=== PATIENT | female | born 1985 | race Caucasian/White ===

== ENCOUNTER 2024-03-25 16:20 | Emergency (ER) | payer MEDICAID, SELFPAY ==
[2024-03-25 16:27] VITALS: BP 102/66; PULSE 128; RESP 20; TEMP 36.7; O2SAT 97; BMI 31.5
[2024-03-25 17:25] LABS: Appearance Urine Clear (Clear); Bilirubin Urine Negative (Negative); Blood Urine Trace-intact (Negative); Color Urine Yellow (Yellow); Glucose Urine Negative (Negative); Ketones Urine Negative (Negative); Leukocyte Esterase Urine Negative (Negative); Nitrite Urine Negative (Negative); Protein Urine Negative (Negative); Urobilinogen Urine 0.2 (0.2-1.0); pH Urine 7.5 (5.0-8.5)
[2024-03-25 17:32] LABS: RBC Urine 0-2 (0-2); WBC Urine 0-2 (0-5)
[2024-03-25 17:52] LABS: PCR FLU A Negative PCR FLU A (Negative); PCR FLU B Negative PCR FLU B (Negative); PCR RSV Negative PCR RSV (Negative); SARS PCR* Negative SARS-CoV-2 (Negative)
[2024-03-25 17:58] LABS: Basophils Absolute Auto 0.02 K/uL (0.00-0.30); Basophils Percent Auto 0.3 % (0.0-3.0); Eosinophils Absolute Auto 0.01 K/uL (0.00-0.50); Eosinophils Percent Auto 0.1 % (0.0-7.0); Hematocrit 31.5 % (33.0-51.0); Hemoglobin* 10.3 gm/dL (12.0-16.0); Immature Granulocytes Abs Auto 0.01 K/uL (0.00-0.30); Immature Granulocytes Pct Auto 0.1 %; Lymphocytes Absolute Auto 1.71 K/uL (0.90-2.90); Lymphocytes Percent Auto 24.7 % (20-44); Mean Corpuscular HGB Conc 33 gm/dL (32-36); Mean Corpuscular Hemoglobin 29 pg (26-34); Mean Corpuscular Volume 88 fL (80-100); Monocytes Percent Auto 8.2 % (0.0-11.0); Neutrophils Absolute Auto 4.59 K/uL (1.7-7.0); Neutrophils Percent Auto 66.6 % (42.0-72.0); Platelet Count* 373 K/uL (140-440); RDW Coefficient of Variation % 15.7 % (11.5-15.5); Red Blood Count 3.59 m/uL (4.00-5.20); White Blood Count* 6.91 K/uL (4.50-11.00)
--- NOTE | 2024-03-25 17:58 | ED_ITS ---
HPI - General Adult General Date Seen: 03/25/24 Chief complaint: Back Injury/Pain Stated complaint: Lower back pain up the spine; weakness Time Seen by Provider: 03/25/24 16:36 Source: patient Mode of arrival: ambulatory Limitations: no limitations History of Present Illness HPI narrative: Patient is a 38-year-old female presenting to the emergency department for neck and back pain. She states she had osteomyelitis a few weeks ago and has been on IV antibiotics since then. This was diagnosed at [facility]. She has been getting ertapenem every day. Did get her dose today. She does get frequent bacteremia and she states the think her osteomyelitis was caused by bacteremia from a ESBL UTI. States 2 days ago she started having neck and back pain. The back pain is in the lower lumbar region at the same spot of her previous osteomyelitis. She also developed new neck pain at about C3. He states is not tender to palpation. She went to [facility] Emergency Department yesterday for this and was discharged. Also patient does states she has intermittent incontinence been going on for the past couple days. Also had a fever yesterday. She was seen at [facility] ED yesterday for these exact same symptoms. At that time she was trying to get more Dilaudid because the taper she currently is on has not been enough. She did have the bone biopsy done 03/15 showing no organisms on culture. Her CRP was down trending in her ESR is consistent. They spoke with ID who states that was highly unlikely the patient had developed new osteo myelitis and that was reasonable to defer imaging at this time. I also saw and her charts that she has a care plan through [facility] as she needs a sitter went ever she is in their ED. she has multiple episodes that make them believe she may have Munchausen disease. She does a history of mental health issues. While there she would see got Ativan and Benaddamian for the high end with Dean scan to make look like she is having allergic reaction. They also believe she was falling on purpose. Also every time they discharge or she will have a new complaint to delay the discharge. This is according to her patient care coordination note Related Data Home Medications Medication Instructions Recorded Confirmed apixaban 5 mg tablet (Eliquis) 5 mg PO BID 03/25/24 03/25/24 cholecalciferol (vitamin D3) 50 50 mcg PO DAILY 03/25/24 03/25/24 mcg (2,000 unit) capsule gabapentin 800 mg tablet 800 mg PO 3XD 03/25/24 03/25/24 hydromorphone 2 mg tablet mg PO 03/25/24 hydromorphone 4 mg tablet 4 mg PO Q6H PRN severe pain 03/25/24 03/25/24 lorazepam 1 mg tablet 1 mg PO Q6H 03/25/24 03/25/24 zolpidem 10 mg tablet 10 mg PO DAILY 03/25/24 03/25/24 Allergies Allergy/AdvReac Type Severity Reaction Status Date / Time droperidol Allergy Verified 03/25/24 16:32 metoclopramide [From Reglan] Allergy Verified 03/25/24 16:32 NSAIDS (Non-Steroidal Allergy Verified 03/25/24 16:32 Anti-Inflamma prochlorperazine Allergy Verified 03/25/24 16:32 [From Compazine] Sulfa (Sulfonamide Allergy Verified 03/25/24 16:32 Antibiotics) PFSH [facility] Medical History (Updated 03/25/24 @ 19:18 by Flo Akers DO) Bipolar 1 disorder ?F31.9 - Bipolar disorder, unspecified (ICD-10) Seizure ?R56.9 - Unspecified convulsions (ICD-10) Sepsis ?A41.9 - Sepsis, unspecified organism (ICD-10) Atrial flutter ?I48.92 - Unspecified atrial flutter (ICD-10) CAP (community acquired pneumonia) ?J18.9 - Pneumonia, unspecified organism (ICD-10) Streptococcus viridans infection ?A49.1 - Streptococcal infection, unspecified site (ICD-10) Ulcer of right foot ?L97.519 - Non-pressure chronic ulcer of other part of right foot with unspecified severity (ICD-10) Dysthymic disorder ?F34.1 - Dysthymic disorder (ICD-10) Eating disorder ?F50.9 - Eating disorder, unspecified (ICD-10) Dysplasia of cervix ?N87.9 - Dysplasia of cervix uteri, unspecified (ICD-10) Post traumatic stress disorder (PTSD) ?F43.10 - Post-traumatic stress disorder, unspecified (ICD-10) Major depressive disorder with single episode ?F32.9 - Major depressive disorder, single episode, unspecified (ICD-10) Insomnia ?G47.00 - Insomnia, unspecified (ICD-10) Borderline personality disorder ?F60.3 - Borderline personality disorder (ICD-10) Allergic rhinitis ?J30.9 - Allergic rhinitis, unspecified (ICD-10) Abdominal pain ?R10.9 - Unspecified abdominal pain (ICD-10) Ureteral stone ?N20.1 - Calculus of ureter (ICD-10) contractions ?O47.00 - False labor before 37 completed weeks of gestation, unspecified trimester (ICD-10) Drug-seeking behavior ?Z76.5 - Malingerer [conscious simulation] (ICD-10) GERD (gastroesophageal reflux disease) ?K21.9 - Gastro-esophageal reflux disease without esophagitis (ICD-10) LFT elevation ?R79.89 - Other specified abnormal findings of blood chemistry (ICD-10) Gastric ulcer with hemorrhage ?K25.4 - Chronic or unspecified gastric ulcer with hemorrhage (ICD-10) GI bleed ?K92.2 - Gastrointestinal hemorrhage, unspecified (ICD-10) Headache ?R51.9 - Headache, unspecified (ICD-10) Hematemesis ?K92.0 - Hematemesis (ICD-10) Kathleen-Mustafa tear ?K22.6 - Gastro-esophageal laceration-hemorrhage syndrome (ICD-10) Intertrigo ?L30.4 - Erythema intertrigo (ICD-10) PID (acute pelvic inflammatory disease) ?N73.0 - Acute parametritis and pelvic cellulitis (ICD-10) Chronic narcotic use ?F11.90 - Opioid use, unspecified, uncomplicated (ICD-10) Left lumbar radiculopathy ?M54.16 - Radiculopathy, lumbar region (ICD-10) Positive D dimer ?R79.89 - Other specified abnormal findings of blood chemistry (ICD-10) Asthma ?J45.909 - Unspecified asthma, uncomplicated (ICD-10) Psychogenic nonepileptic seizure ?F44.5 - Conversion disorder with seizures or convulsions (ICD-10) Pleuritic chest pain ?R07.81 - Pleurodynia (ICD-10) Suspected COVID-19 virus infection ?Z20.822 - Contact with and (suspected) exposure to COVID-19 (ICD-10) SOB (shortness of breath) ?R06.02 - Shortness of breath (ICD-10) Morbid obesity ?E66.01 - Morbid (severe) obesity due to excess calories (ICD-10) Anxiety ?F41.9 - Anxiety disorder, unspecified (ICD-10) Candidiasis of mouth ?B37.0 - Candidal stomatitis (ICD-10) Positive blood cultures ?R78.81 - Bacteremia (ICD-10) Intractable nausea and vomiting ?R11.2 - Nausea with vomiting, unspecified (ICD-10) Epigastric pain ?R10.13 - Epigastric pain (ICD-10) Wheezing ?R06.2 - Wheezing (ICD-10) Postural orthostatic tachycardia syndrome [POTS] ?G90.A - Postural orthostatic tachycardia syndrome [POTS] (ICD-10) Postural dizziness with near syncope ?R42 - Dizziness and giddiness (ICD-10) ?R55 - Syncope and collapse (ICD-10) Problem with vascular access ?Z78.9 - Other specified health status (ICD-10) CANELO (acute kidney injury) ?N17.9 - Acute kidney failure, unspecified (ICD-10) Dehydration ?E86.0 - Dehydration (ICD-10) Mixed personality disorder ?F60.89 - Other specific personality disorders (ICD-10) Transaminitis ?R74.01 - Elevation of levels of liver transaminase levels (ICD-10) Pulmonary nodule ?R91.1 - Solitary pulmonary nodule (ICD-10) Bacteremia ?R78.81 - Bacteremia (ICD-10) Low folate ?E53.8 - Deficiency of other specified B group vitamins (ICD-10) Psychiatric disturbance ?F99 - Mental disorder, not otherwise specified (ICD-10) Port-A-Cath in place ?Z95.828 - Presence of other vascular implants and grafts (ICD-10) Dysuria ?R30.0 - Dysuria (ICD-10) Fungemia ?B49 - Unspecified mycosis (ICD-10) UTI (urinary tract infection) ?N39.0 - Urinary tract infection, site not specified (ICD-10) Syncope ?R55 - Syncope and collapse (ICD-10) Anemia ?D64.9 - Anemia, unspecified (ICD-10) DVT (deep venous thrombosis) ?I82.409 - Acute embolism and thrombosis of unspecified deep veins of unspecified lower extremity (ICD-10) Back pain ?M54.9 - Dorsalgia, unspecified (ICD-10) Hypokalemia ?E87.6 - Hypokalemia (ICD-10) Social History Smoking Status: Smoker, status unknown Exam Narrative: Exam Narrative: Const: Smells of urine, in mild distress, Eyes: PERRL, no conjunctival injection, and symmetrical lids HENT: Atraumatic external nose and ears. Moist mucous membranes. Neck: Symmetric, trachea midline, No thyromegaly. CVS: Tachycardic, No murmurs or gallops. Peripheral pulses 2+ and equal in all extremities RESP: Unlabored respiratory effort. Clear to auscultation bilaterally. GI: Nontender/Nondistended, No rebound or guarding. MSK:Extremities w/o deformity, Normal Active ROM Skin: Warm, Dry. No rashes or lesions. Neuro: Normal Muscle tone, No focal neurological deficits. Psych: Awake, Alert, & Oriented x3. Appropriate mood and affect. Const: Vital Signs, click to edit/add: Vital Signs - 24 hr 03/25/24 16:27 03/25/24 18:10 03/25/24 18:30 Temperature 98.0 F Pulse Rate [Right Pulse Oximeter] 128 H 114 H 111 H Respiratory Rate 20 16 16 Blood Pressure [Ri ght Upper Arm] 102/66 120/72 117/62 Pulse Oximetry 97 98 98 Oxygen Delivery Me thod Room Air Room Air Room Air Course Vital Signs Vital signs: Initial Vital Signs Temperature 98.0 F 03/25/24 16:27 Temperature Source Temporal Artery Scan 03/25/24 16:27 Pulse Rate 128 H 03/25/24 16:27 Respiratory Rate 20 03/25/24 16:27 Blood Pressure 102/66 03/25/24 16:27 Blood Pressure Mean 78 03/25/24 16:27 Blood Pressure Position Sitting 03/25/24 16:27 Pulse Oximetry 97 03/25/24 16:27 Oxygen Delivery Method Room Air 03/25/24 16:27 Vital Signs Temperature 98.0 F 03/25/24 16:27 Pulse Rate 128 H 03/25/24 16:27 Respiratory Rate 20 03/25/24 16:27 Blood Pressure 102/66 03/25/24 16:27 Pulse Oximetry 97 03/25/24 16:27 Oxygen Delivery Method Room Air 03/25/24 16:27 Temperature 98.0 F 03/25/24 16:27 Pulse Rate 111 H 03/25/24 18:30 Respiratory Rate 16 03/25/24 18:30 Blood Pressure 117/62 03/25/24 18:30 Pulse Oximetry 98 03/25/24 18:30 Oxygen Delivery Method Room Air 03/25/24 18:30 Medications Administered Medications: Generic Name Dose Route Start Last Admin Trade Name Mindy PRN Reason Stop Dose Admin Hydromorphone HCl 2 mg 03/25/24 16:55 03/25/24 18:03 Hydromorphone 2 Mg Tablet PO 03/25/24 16:56 2 mg ONCE ONE Administration Lactated Ringer's 1,000 mls @ 1,000 mls/hr 03/25/24 16:55 03/25/24 19:18 Lactated Ringers 1000 Ml IV 03/25/24 17:54 Infused .Q1H ONE Infusion Medical Decision Making MDM Narrative Medical decision making narrative: Patient is a 38-year-old female presenting for neck and back pain. Based on her history there is concerned for Munchausen syndrome. I will give her a dose Dilaudid as she was able to get a dose at [facility] yesterday who know her very well. We will hold off any imaging at this time until I can determine if she really does needed or not. CBC, CMP, urinalysis, COVID/flu/RSV, troponin, EKG, ESR, CRP all ordered. At this time mother was possibility of osteomyelitis I did review her notes on Care everywhere from [facility] and they state it was a questionable call for osteomyelitis to start with. CBC, CMP, urinalysis, COVID/flu/RSV showed no concerning abnormalities. She does have slightly elevated liver enzymes. These actually down compared to her admission at [facility] in February. EKG shows sinus tachycardia and troponin is normal. Her lab work returned with a CRP of 4.7 and an ESR of 75. Based on her reports from yesterday at [facility] her CRP was 33.81 and ESR was 45. While the ESR to go up some the CRP decreased significantly. Based on the notes they only recommended MRI if the ESR and CRP are both up in even then do not think she had osteomyelitis currently considering she is on antibiotics IV. She has no point tenderness and no overlying erythema. Seems very unlikely to be osteomyelitis at this time. She continues to be tachycardic but is very anxious and looking through her previous charts she is calmly tachycardic. I cannot definitively say if this tachycardia is from some underlying infection that we are not picking up or not but at this time patient states her back pain is feeling much better. She still has some neck pain but would like to be discharged. Did request another dose of Dilaudid which was given. Considering we do not have MRI right now and CT scan is not very sensitive for osteomyelitis I do not think imaging would help at this time. I also think it is very unlikely she does have osteomyelitis. She did not have a fever here and with her history it is really hard to determine what symptoms she is actually having verses what she is claiming to have. Patient will be discharged. Lab Data Labs: Lab Results 03/25/24 03/25/24 03/25/24 Range/Units 16:55 17:14 17:18 WBC (4.50-11.00) K/uL RBC (4.00-5.20) m/uL Hgb (12.0-16.0) gm/dL Hct (33.0-51.0) % MCV (80-100) fL MCH (26-34) pg MCHC (32-36) gm/dL RDW Coeff of Haily (11.5-15.5) % Plt Count (140-440) K/uL Neut % (Auto) (42.0-72.0) % Lymph % (Auto) (20-44) % [place] % (Auto) (0.0-11.0) % Eos % (Auto) (0.0-7.0) % Baso % (Auto) (0.0-3.0) % Neut # (Auto) (1.7-7.0) K/uL Lymph # (Auto) (0.90-2.90) K/uL [place] # (Auto) (0.00-0.90) K/UL Eos # (Auto) (0.00-0.50) K/uL Baso # (Auto) (0.00-0.30) K/uL Abs Immat Gran (auto) (0.00-0.30) K/uL Imm/Tot Granulo (auto) % ESR (2-20) mm/hr Sodium (135-149) mmol/L Potassium (3.6-5.1) mmol/L Chloride (96-114) mmol/L Carbon Dioxide (20-32) mmol/L Anion Gap (7-15) mEq/L BUN (5-24) mg/dL Creatinine (0.5-1.5) mg/dL Estimated Creat Clear Estimated GFR ml/min Glucose (60-115) mg/dL Lactate (0.5-1.9) mmol/L Calcium (8.4-10.6) mg/dL Total Bilirubin (0.1-1.5) mg/dL AST (12-35) U/L ALT (4-35) U/L Alkaline Phosphatase (40-150) U/L C-Reactive Protein (0.5-1.0) mg/dL Total Protein (6.0-8.3) g/dL Albumin (3.3-5.0) g/dL Urine Color Yellow (Yellow) Urine Appearance Clear (Clear) Urine pH 7.5 (5.0-8.5) Ur Specific [place] 1.020 (1.000-1.030) Urine Protein Negative (Negative) Urine Glucose (UA) Negative (Negative) Urine Ketones Negative (Negative) Urine Blood Trace-intact A (Negative) Urine Nitrite Negative (Negative) Urine Bilirubin Negative (Negative) Urine Urobilinogen 0.2 (0.2-1.0) Ur Leukocyte Esterase Negative (Negative) Urine RBC 0-2 (0-2) Urine WBC 0-2 (0-5) Ur Squamous Epith Cells None (None-Few) Urine Bacteria None (None) SARS-CoV-2 (PCR) Negative SARS-CoV-2 (Negative) Influenza Type A (PCR) Negative PCR FLU A (Negative) Influenza Type B (PCR) Negative PCR FLU B (Negative) RSV (PCR) Negative PCR RSV (Negative) POC Troponin I 0.01 (0.01-0.04) ng/ml 03/25/24 Range/Units 17:47 WBC 6.91 (4.50-11.00) K/uL RBC 3.59 L (4.00-5.20) m/uL Hgb 10.3 L (12.0-16.0) gm/dL Hct 31.5 L (33.0-51.0) % MCV 88 (80-100) fL MCH 29 (26-34) pg MCHC 33 (32-36) gm/dL RDW Coeff of Haily 15.7 H (11.5-15.5) % Plt Count 373 (140-440) K/uL Neut % (Auto) 66.6 (42.0-72.0) % Lymph % (Auto) 24.7 (20-44) % [place] % (Auto) 8.2 (0.0-11.0) % Eos % (Auto) 0.1 (0.0-7.0) % Baso % (Auto) 0.3 (0.0-3.0) % Neut # (Auto) 4.59 (1.7-7.0) K/uL Lymph # (Auto) 1.71 (0.90-2.90) K/uL [place] # (Auto) 0.60 (0.00-0.90) K/UL Eos # (Auto) 0.01 (0.00-0.50) K/uL Baso # (Auto) 0.02 (0.00-0.30) K/uL Abs Immat Gran (auto) 0.01 (0.00-0.30) K/uL Imm/Tot Granulo (auto) 0.1 % ESR 75 H (2-20) mm/hr Sodium 138 (135-149) mmol/L Potassium 3.7 (3.6-5.1) mmol/L Chloride 107 (96-114) mmol/L Carbon Dioxide 23 (20-32) mmol/L Anion Gap 8 (7-15) mEq/L BUN 8 (5-24) mg/dL Creatinine 0.6 (0.5-1.5) mg/dL Estimated Creat Clear 119.01 Estimated GFR 118 ml/min Glucose 100 (60-115) mg/dL Lactate 0.8 (0.5-1.9) mmol/L Calcium 9.0 (8.4-10.6) mg/dL Total Bilirubin 0.4 (0.1-1.5) mg/dL AST 51 H (12-35) U/L ALT 45 H (4-35) U/L Alkaline Phosphatase 243 H (40-150) U/L C-Reactive Protein 4.7 H (0.5-1.0) mg/dL Total Protein 8.4 H (6.0-8.3) g/dL Albumin 4.2 (3.3-5.0) g/dL Urine Color (Yellow) Urine Appearance (Clear) Urine pH (5.0-8.5) Ur Specific [place] (1.000-1.030) Urine Protein (Negative) Urine Glucose (UA) (Negative) Urine Ketones (Negative) Urine Blood (Negative) Urine Nitrite (Negative) Urine Bilirubin (Negative) Urine Urobilinogen (0.2-1.0) Ur Leukocyte Esterase (Negative) Urine RBC (0-2) Urine WBC (0-5) Ur Squamous Epith Cells (None-Few) Urine Bacteria (None) SARS-CoV-2 (PCR) (Negative) Influenza Type A (PCR) (Negative) Influenza Type B (PCR) (Negative) RSV (PCR) (Negative) POC Troponin I (0.01-0.04) ng/ml ECG Data Attestation: I personally reviewed and interpreted this ECG as follows: Prior ECG tracings: not available for review Interpretation: Sinus tachycardia with a rate of 116 beats per minute, normal intervals, normal axis, no ST or T-wave abnormalities Discharge Plan Discharge Clinical Impression: Acute neck pain Patient Disposition: Home, Self-Care Condition: Improved Instructions: Acute Neck Pain (ED) Additional Instructions: Continue take care prescribed pain medication. Return to emergency department for new or worsening symptoms Prescriptions: No Action hydromorphone 2 mg tablet PO gabapentin 800 mg tablet 800 mg PO 3XD lorazepam 1 mg tablet 1 mg PO Q6H zolpidem 10 mg tablet 10 mg PO DAILY hydromorphone 4 mg tablet 4 mg PO Q6H PRN (Reason: severe pain) cholecalciferol (vitamin D3) 50 mcg (2,000 unit) capsule 50 mcg PO DAILY Eliquis 5 mg tablet 5 mg PO BID Follow Up/Referrals: Alee Dooley PA-C [Physician [employer]] - Stand Alone Forms: Connotate Info Instructions
[2024-03-25] MEDS: LACTATED RINGERS 1000 ML 1,000 ML IV (18:01)
[2024-03-25 18:03] LABS: Lactate Sepsis w/Reflex* 0.8 mmol/L (0.5-1.9)
[2024-03-25] MEDS: HYDROmorphone 2 MG TABLET PO ×2 (18:03→19:22)
[2024-03-25 18:04] LABS: Slide Review Reflex No
[2024-03-25 18:10] VITALS: BP 120/72; PULSE 114; RESP 16; O2SAT 98
--- OUTSIDE RECORDS SUMMARY | 2024-03-25 18:10 | XMS_ITS | Referral Summary ---
Author Name Unknown Organization [facility] Address [address] [place] [address] Care Team Providers Care Contamination Consultant Name Role Phone Unavailable Primary Care Provider Unavailabl e Source Comments Patient records contain information from all sites at [facility]. For routine questions regarding patient records, call [phone] during business hours, M-F 8:00 AM - 5:00 PM Central Time. Record requests for emergency care only can be directed to [phone] at any time.[facility] Allergies Active Allergy Reactions Criticality Noted Date Comments Codeine Itching 08/14/2013 Metrizamide Other (see comments),Hives (Reselect Reaction),Itching 12/11/2014 reaction after injection of IV contrast for CT chest 03/2014 at [facility]. Premedicated w/ Benadryl prior to CT at [facility] 12/11/14 - still had itching after injection of IV contrast (Isovue 370). Naproxen Anaphylaxis 08/04/2012 PN: anaphylaxis Nsaids (Non-Steroidal Anti-Inflammatory Drug) Anaphylaxis 06/11/2008 Ondansetron Rash Low 11/21/2017 Patient reports only gets a rash with IV zofran Prochlorperazine Other (see comments) 06/14/2011 Sulfa (Sulfonamide Antibiotics) Anaphylaxis 06/11/2008 Medications Medication Sig Dispensed Refills Start Date End Date Status acetaminophen (for_TYLENOL) 325 mg tablet Take 650 mg by mouth. 12/01/2016 Active acetaminophen (for_TYLENOL) 500 mg tablet Take 1,000 mg by mouth. 07/20/2017 Active nitrofurantoin monohydrate (for_MACROBID) 100 mg capsule 11/30/2017 Active zolpidem (AMBIEN) 10 mg tablet TAKE 1 TABLET BY MOUTH AT BEDTIME 30 tablet 09/05/2022 Active Active Problems No known active problems Social History Tobacco Use Types Packs/Day Years Used Date Smoking Tobacco: Never Alcohol Use Standard Drinks/Week Comments Yes 0 (1 standard drink = 0.6 oz pur e alcohol) socially Nutrition Answer Date Recorded Nutrition: EVOO Fat Source Unknown 01/28 Nutrition: Servings of Fruits/Vegetables per Day Not on file 01/28/2021 Dental Answer Date Recorded Dental: Regular Dentist Unknown 01/29/20 21 Sex and Gender Information Value Date Recorded Sex Assigned at Not on file Gender Identity Not on file Sexual Orientation Not on file Last Filed Vital Signs Vital Sign Reading Time Taken Comments Blood Pressure 156/97 05/25/2022 8:30 PM CDT Pulse 98 05/26/2022 2:00 AM CDT Temperature 36.8 ??C (98.2 ??F) 05/25/2022 5:01 PM CD T Respiratory Rate 20 05/25/2022 5:01 PM CDT Oxygen Saturation 96% 05/26/2022 2:00 AM CDT Inhaled Oxygen Concentration - - Weight 126 kg (276 lb 10.8 oz) 12/05/2017 9:18 P M [employer] Height 157.5 cm (5' 2) 12/05/2017 9:18 PM [employer] Body Mass Index 50.6 12/05/2017 9:18 PM [employer] Plan of Treatment Not on file Procedures Procedure Name Priority Date/Time Associated Diagnosis Comments EXTI LIPID PANEL REFLEX TO DIRECT LDL Routine 01/01/2023 11:43 AM [employer] HIV-1/-2 AG AND AB SCREEN Routine 12/23/2017 9:49 AM [employer]ACHINE TENDER from Last 3 Months or Most Recently Relevant to Health Maintenance Results * HIV-1/-2 Ag and Ab Screen (12/23/2017 9:49 AM GLASSINE MACHINE TENDER) [facility] HIV-1/-2 Ag and Ab Screen, S Negative Negative [facility] Comment: Negative result does not rule out HIV infection. If ? acute HIV infection is suspected in a high-risk ? individual, submit plasma specimen for HIV-1 RNA ? quantification test (HIVDQ) and/or HIV-2 DNA/RNA ? test (FHV2Q). ? 12/23/2017 9:49 AM [employer] MACHINE [employer]ENDER 12/23/2017 9:49 AM [employer] MACHINE T[employer]ER Jacquelyn L Keuseman M.D. LAB MICROBIOLOGY - BLOOD ORDERABLES [facility] [address] [place] [id number], [facility] from Last 3 Months or Most Recently Relevant to Health Maintenance
--- OUTSIDE RECORDS SUMMARY | 2024-03-25 18:10 | XMS_ITS ---
Author Name Unknown Organization [facility] Address [address] [place] [address] Care Team Providers Care Care Rep Name Role Phone Unavailable Unavailable Unavailable Surgery Details Not on file Complications Check Surgery Details section. Procedure Estimated Blood Loss Check Surgery Details section. Procedure Findings Check Surgery Details section. Procedure Specimens Taken Check Surgery Details section.
--- OUTSIDE RECORDS SUMMARY | 2024-03-25 18:10 | XMS_ITS | Clinical Summary ---
Author Name Unknown Organization [facility] Address [address] [place] [address] Care Team Providers Care Ccnp Name Role Phone Unavailable Primary Care Provider Unavailabl e Source Comments Patient records contain information from all sites at [facility]. For routine questions regarding patient records, call [phone] during business hours, M-F 8:00 AM - 5:00 PM Central Time. Record requests for emergency care only can be directed to [phone] at any time.[facility] Allergies Active Allergy Reactions Criticality Noted Date Comments Codeine Itching 08/14/2013 Metrizamide Other (see comments),Hives (Reselect Reaction),Itching 12/11/2014 reaction after injection of IV contrast for CT chest 03/2014 at [facility]. Premedicated w/ Benadryl prior to CT at [facility] 12/11/14 - still had itching after injection [...] lb 10.8 oz) 12/05/2017 9:18 P M CLERICAL TRANSCRIBER Height 157.5 cm (5' 2) 12/05/2017 9:18 PM CLERICAL TRANSCRIBER Body Mass Index 50.6 12/05/2017 9:18 PM CLERICAL TRANSCRIBER Plan of Treatment Health Maintenance Due Date Last Done Comments Hepatitis C Screening 1985 COVID-19 Vaccine ( season) 2023 10/12/2021, 02/03/2021 Influenza Vaccine (#1) 2023 8, 10/17/2013, 12/08/2012, Additional history exists Depression Screening (Annual PHQ-2) 11/29/2023 DTaP,Tdap,and Td Vaccines (4 - Td or Tdap) 02/06/2024 02/05/2014, 02/05/2014, 03/16/2005, Additional history exists Lipid (Cholesterol) Screening 01/01/2028 01/01/2023 Hepatitis B Vaccines Completed 03/16/2005, 08/13/2000, 07/08/2000 Pneumococcal vaccine (0-64 years) Aged Out 12/08/2012, 10/13/2008, 10/13/2008, Additional history exists No longer eligible based on patient's age to complete this topic HIV Screening Completed 12/23/2017 HPV Vaccines Aged Out No longer eligi ble based on patient's age to complete this topic Procedures Procedure Name Priority Date/Time Associated Diagnosis Comments EXTI LIPID PANEL REFLEX TO DIRECT LDL Routine 01/01/2023 11:43 AM CLERICAL TRANSCRIBER HIV-1/-2 AG AND AB SCREEN Routine 12/23/2017 9:49 AM CLERICAL TRANSCRIBER from Last 3 Months or Most Recently Relevant to Health Maintenance Results * HIV-1/-2 Ag and Ab Screen (12/23/2017 9:49 AM CLERICAL TRANSCRIBER) Pathologist [facility] [place] HIV-1/-2 Ag and Ab Screen, S Negative Negative [facility] Comment: Negative result does not rule out HIV infection. If ? acute HIV infection is suspected in a high-risk ? individual, submit plasma specimen for HIV-1 RNA ? quantification test (HIVDQ) and/or HIV-2 DNA/RNA ? test (FHV2Q). ? 12/23/2017 9:49 AM CLERICAL TRANSCRIBER 12/23/2017 9:49 AM CLERICAL TRANSCRIBER Jacquelyn Garnett M.D. LAB MICROBIOLOGY - BLOOD ORDERABLES [facility] [address] [place] [address], [place] from Last 3 Months or Most Recently Relevant to Health Maintenance
[2024-03-25 18:11] LABS: Troponin, Point-of-Care* 0.01 ng/ml (0.01-0.04)
--- OUTSIDE RECORDS SUMMARY | 2024-03-25 18:11 | XMS_ITS | Clinical Summary ---
Author Name Unknown Organization [place] Address [facility] [place] [address] Care Team Providers Care Grounds/Maintenance Specialist Name Role Phone Segundo Virgen MD Unavailable [phone] Segundo Virgen MD Unavailable [phone] Qamar Jackson MD Unavailable Segundo Virgen MD Primary Care Provider + Gregorio Datlon-Shirley Unavailable [phone] Kingsley Garcia MD Unavailable + [phone] Segundo Virgen MD Unavailable [phone] Master Shea PA-C Unavailable Allyssa Justice MD Unavailable [phone] Genaro Christian MD Unavailable Master Shea-C Unavailable Sienna Guillermo DO Unavailable Allyssa Justice MD Unavailable [phone] Allergies Active Allergy Reactions Criticality Noted Date Comments Chlorhexidine Itching,Swelling High 06/05/2023 Prochlorperazine Other (See Comments) Medium 3 Muscle twitching Contrast Dye Hives,Itching,Cough Low 04/24/2014 Pt can tolerate if given 25 mg benadryl PIV prior to contrast Droperidol Swelling High seizures, tongue swelling Metoclopramide Other (See Comments) Medium 01/22/2006 Muscle twitching w IV only; tolerates oral fine Nsaids Anaphylaxis High 04/24/2006 Olanzapine Medium 06/27/2023 Muscle twitching Promethazine Medium 06/02/2023 Muscles twitch on own, pt freaks out Phenothiazines Anxiety,Muscle Pain (Myalgia) Medium 07/27/2006 Dystonic reaction, delirium Sulfa Antibiotics Anaphylaxis High 06/11/2008 SOB, swelling-fingers Iron Sucrose 03/08/2024 Allergic reaction, nausea, fever Ondansetron Hcl Other (See Comments) 09/10/2023 Pt does not want to receive. She reports trouble breathing, flushing, itching, long QT Medications Medication Sig Dispensed Refills Start Date End Date Status gabapentin (NEURONTIN) 800 MG tablet Take 800 mg by mouth 3 times daily Active EPINEPHrine (ANY BX GENERIC EQUIV) 0.3 MG/0.3ML injection 2-pack Inject 0.3 mLs (0.3 mg) into the muscle once as needed for anaphylaxis 1 each 1 Active zolpidem (AMBIEN) 10 MG tablet Take 10 mg by mouth At Bedtime 3 Active naloxone (NARCAN) 4 MG/0.1ML nasal spray [place] 4 mg into one nostril alternating nostrils once as needed for opioid reversal 3 Active diphenhydrAMINE (BENADRYL) 25 MG capsuleIndication s:Intractable nausea and vomiting Take 1 capsule (25 mg) by mouth every 6 hours as needed (nausea) 3 Active folic acid (FOLVITE) 1 MG tablet Take 1 mg by mouth daily Active LORazepam (ATIVAN) 1 MG tablet Take 1 mg by mouth every 6 hours as needed for anxiety Active Cholecalciferol (VITAMIN D3) 50 MCG (1999 UT) CAPS Take 1 capsule by mouth daily 3 Active childrens multivitamin w/iron (FLINTSTONES COMPLETE) chewable tablet Take 1 chew tab by mouth daily Active acetaminophen (TYLENOL) 500 MG tablet Take 1,000 mg by mouth every 4 hours as needed for mild pain Active apixaban ANTICOAGULANT (ELIQUIS) 5 MG tabletIndications :Multiple subsegmental pulmonary emboli without acute cor pulmonale (H) Take 1 tablet (5 mg) by mouth 2 times daily Hold apixaban till bone biopsy is done. 180 tablet 1 4 Active lactulose (CHRONULAC) 10 GM/15ML solutionIndicatio ns:Osteomyelitis, unspecified site, unspecified type (H) Take 15 mLs (10 g) by mouth 2 times daily as needed for constipation 473 mL 4 Active Lidocaine (LIDOCARE) 4 % PatchIndications: Osteomyelitis, unspecified site, unspecified type (H) Place 1 patch onto the skin every 24 hours To prevent lidocaine toxicity, patient should be patch free for 12 hrs daily. 10 patch 4 Active methocarbamol (ROBAXIN) 500 MG tabletIndications :Osteomyelitis, unspecified site, unspecified type (H) Take 1 tablet (500 mg) by mouth 4 times daily 56 tablet 4 Active fluconazole (DIFLUCAN) 200 MG tabletIndications :Osteomyelitis, unspecified site, unspecified type (H) Take 1 tablet (200 mg) by mouth three times a week 18 tablet 4 Active ertapenem (INVANZ) 1 GM vialIndications:B acteremia Inject 1 g into the vein every 24 hours for 37 days Weekly CBC/diff,creat,S GOT,ESR,CRP to [facility] [phone] fax 370 mL 4 024 Active HYDROmorphone (DILAUDID) 2 MG tabletIndications :Osteomyelitis, unspecified site, unspecified type (H) Take 2 tablets (4 mg) by mouth every 4 hours as needed for moderate pain for 3 days, THEN 2 tablets (4 mg) every 6 hours as needed for moderate pain for 3 days, THEN 2 tablets (4 mg) 2 times daily as needed for moderate pain. 42 tablet 4 024 Active HYDROmorphone (DILAUDID) 4 MG tabletIndications :Osteomyelitis, unspecified site, unspecified type (H) Take 0.5 tablets (2 mg) by mouth every 6 hours as needed for severe pain 5 tablet 4 Active HYDROmorphone (DILAUDID) 4 MG tabletIndications :Osteomyelitis, unspecified site, unspecified type (H) Take 1 tablet (4 mg) by mouth every 6 hours as needed for severe pain 2 tablet 4 Active pantoprazole (PROTONIX) 40 MG EC tabletIndications :Gastroesophageal reflux disease with esophagitis, unspecified whether hemorrhage Take 1 tablet (40 mg) by mouth 2 times daily (before meals) 180 tablet 1 3 024 Discontinued(Me d Rec(No AVS / No eCancel)) apixaban ANTICOAGULANT (ELIQUIS) 5 MG tabletIndications :Multiple subsegmental pulmonary emboli without acute cor pulmonale (H) Take 1 tablet (5 mg) by mouth 2 times daily 180 tablet 1 4 024 Discontinued phenazopyridine (PYRIDIUM) 100 MG tablet Take 1 tablet (100 mg) by mouth 3 times daily as needed for urinary tract discomfort 9 tablet 4 024 Discontinued loperamide (IMODIUM A-D) 2 MG tablet Take 1 tablet (2 mg) by mouth 4 times daily as needed for diarrhea 30 tablet 4 024 Discontinued(Me d Rec(No AVS / No eCancel)) HYDROmorphone (DILAUDID) 2 MG tabletIndications :Acute low back pain with radicular symptoms, duration less than 6 weeks Take 1 tablet (2 mg) by mouth every 4 hours as needed for severe pain 10 tablet 4 024 Discontinued(Re order (No AVS)) cyclobenzaprine (FLEXERIL) 10 MG tabletIndications :Acute low back pain with radicular symptoms, duration less than 6 weeks Take 1 tablet (10 mg) by mouth 3 times daily as needed for muscle spasms 20 tablet 1 4 024 Discontinued(Me d Rec(No AVS / No eCancel)) methylPREDNISolon e (MEDROL DOSEPAK) 4 MG tablet therapy packIndications:P leuritis Follow Package Directions 21 tablet 4 024 Discontinued HYDROmorphone (DILAUDID) 2 MG tabletIndications :Acute low back pain with radicular symptoms, duration less than 6 weeks Take 1 tablet (2 mg) by mouth every 4 hours as needed for severe pain 10 tablet 4 Discontinued(Re order (No AVS)) HYDROmorphone (DILAUDID) 2 MG tabletIndications :Acute low back pain with radicular symptoms, duration less than 6 weeks Take 1 tablet (2 mg) by mouth 2 times daily as needed for severe pain 10 tablet 4 Discontinued(St op at Discharge) Calcium 200 MG TABS Discontinued(Me d Rec(No AVS / No eCancel)) lactulose (CHRONULAC) 10 GM/15ML solutionIndicatio ns:Osteomyelitis, unspecified site, unspecified type (H) Take 15 mLs (10 g) by mouth 2 times daily as needed for constipation 473 mL 4 Discontinued Lidocaine (LIDOCARE) 4 % PatchIndications: Osteomyelitis, unspecified site, unspecified type (H) Place 1 patch onto the skin every 24 hours To prevent lidocaine toxicity, patient should be patch free for 12 hrs daily. 10 patch 4 Discontinued melatonin 5 MG tabletIndications :Osteomyelitis, unspecified site, unspecified type (H) Take 1 tablet (5 mg) by mouth nightly as needed for sleep 30 tablet 4 Discontinued methocarbamol (ROBAXIN) 500 MG tabletIndications :Osteomyelitis, unspecified site, unspecified type (H) Take 1 tablet (500 mg) by mouth 4 times daily 56 tablet 4 Discontinued polyethylene glycol (MIRALAX) 17 GM/Dose powderIndications :Osteomyelitis, unspecified site, unspecified type (H) Take 17 g by mouth daily 510 g 1 4 Discontinued senna-docusate (SENOKOT-S/ANI LACE) 8.6-50 MG tabletIndications :Osteomyelitis, unspecified site, unspecified type (H) Take 1 tablet by mouth 2 times daily as needed for constipation 100 tablet 4 Discontinued fluconazole (DIFLUCAN) 200 MG tabletIndications :Osteomyelitis, unspecified site, unspecified type (H) Take 1 tablet (200 mg) by mouth three times a week for 42 days 18 tablet 4 024 Discontinued HYDROmorphone (DILAUDID) 2 MG tabletIndications :Osteomyelitis, unspecified site, unspecified type (H) Take 1 tablet (2 mg) by mouth every 4 hours as needed for moderate pain (IF pain not managed with non-pharmacologi tomas and non-opioid interventions) 42 tablet 4 024 Discontinued melatonin 5 MG tabletIndications :Osteomyelitis, unspecified site, unspecified type (H) Take 1 tablet (5 mg) by mouth nightly as needed for sleep 30 tablet 4 024 Discontinued(Me d Rec(No AVS / No eCancel)) polyethylene glycol (MIRALAX) 17 GM/Dose powderIndications :Osteomyelitis, unspecified site, unspecified type (H) Take 17 g by mouth daily 510 g 1 4 Discontinued(Me d Rec(No AVS / No eCancel)) senna-docusate (SENOKOT-S/ANI LACE) 8.6-50 MG tabletIndications :Osteomyelitis, unspecified site, unspecified type (H) Take 1 tablet by mouth 2 times daily as needed for constipation 100 tablet 4 Discontinued(Me d Rec(No AVS / No eCancel)) ertapenem (INVANZ) 1 GM vialIndications:B acteremia Inject 1 g into the vein every 24 hours for 36 days 4 Discontinued(St op at Discharge) diphenhydrAMINE (BENADRYL) 25 MG tabletIndications :Osteomyelitis, unspecified site, unspecified type (H) Take 1 tablet (25 mg) by mouth every 6 hours as needed for itching or allergies 8 tablet 4 Active Problems Patient Care Coordination No te Formatting of this note migh t be different from the original. 01/23/2024 She is on list to make a care plan. Please have a sitter with her during her ED stay. There are concerns that she is falling on purpose, picking at skin to make it look like an allergic reaction, etc. 01/11/24 Update. This patient is restricted to [facility] as stated below. She is avoiding going there because of her restriction. She is frequenting the [facility] ER and has had 12 CT's from 11/29/23--01/11/24 and 4 x-rays. She seeks out Ativan IV and benadryl IV push for the high. It was suggested that Ativan and benadryl be given in a 50cc NS bag instead of IV push. This patient is a difficult IV start. This patient will rub her skin to make it look like she is having an allergic reaction so she can get more benadryl. She states she is allergic to antibiotics she has had numerous times in the past with out incident. There is concern she has M??nchhausen Disease. She does have a history of Mental Health issues. Staff from the ED and from IP are asking for an official ED treatment Plan. She consumes a large amount of staff's time and when discharged has a new complaint to delay discharge. 01/09/24 This patient is flagged with an ED Treatment Plan but has no plan added. This patient is restricted to [facility]. Her current restrictions are: Restricted Recipient Program Please call the [employer] unit for additional information. The telephone number is or [phone]. Provider number [id number], [facility] is a provider for a Restricted Recipient for: Physician Services , Diagnostic Lab , Inpatient Hospital , Outpatient Hospital Provider number [phone], [id number] is a provider for a Restricted Recipient for: Pharmacy Provider number [id number], SEGUNDO VIRGEN MD is a provider for a Restricted Recipient for: Physician Services , Nurse Practitioner Services Provider number [phone], [facility] is a provider for a Restricted Recipient for: Physician Services , Diagnostic Lab , Nurse Practitioner Services If you are providing services other than the restricted services listed above, you may bill [employer]. If you have questions, please call or [phone]. This can cause an issue when discharged from the hospital as only a certain provider can prescribe medications for the patient and she can only get them filled at the above pharmacy. Problem Noted Date Diagnosed Date Hypokalemia 03/05/2024 Back pain 03/05/2024 Acute embolism and thrombosi s of deep veins of right upper extremity 01/17/2024 Anemia 12/05/2023 Syncope, unspecified syncope type 12/05/2023 Anemia, unspecified type 12/05/2023 Chronic anemia 12/02/2023 Orthostatic syncope 12/02/2023 Elevated procalcitonin 11/24/2023 Lightheadedness 11/18/2023 Fungemia 11/12/2023 UTI (urinary tract infection) 11/10/2023 Dysuria 11/10/2023 Port-A-Cath in place 10/29/2023 Psychiatric disturbance 10/29/2023 Low folate 10/29/2023 Anemia, iron deficiency 10/29/2023 Bacteremia 10/28/2023 Post-op pain 09/05/2023 Psychiatric diagnosis deferred 09/05/2023 Pulmonary nodules 09/05/2023 Transaminitis 09/05/2023 Mixed personality disorder 08/30/2023 Dehydration 07/28/2023 CANELO (acute kidney injury) (H24) 07/28/2023 Problem with vascular access 07/28/2023 Postural dizziness with near syncope 07/28/2023 POTS (postural orthostatic tachycardia syndrome) 07/28/2023 F11.2 - Episodic opioid dependence 07/23/2023 Near syncope 06/18/2023 Acute kidney injury (H24) 06/18/2023 Nausea and vomiting, unspecified vomiting type 0 06/04/2023 Wheezing 06/04/2023 Epigastric pain 06/04/2023 Intractable nausea and vomiting 05/05/2023 Chronic pain of both knees 03/08/2023 Positive blood culture 08/15/2021 Suspected COVID-19 virus infection 10/27/2020 Candidiasis of mouth 05/09/2020 Shortness of breath 02/29/2020 Anxiety 08/15/2018 Morbid obesity 05/04/2018 Pleuritic chest pain 04/05/2018 Psychogenic nonepileptic seizure 02/24/2018 Overview: Has had negative EEG in the past February 27 2023 IMO Update History of asthma 01/14/2018 Overview: Hx of asthma as a child. Has not used inhalers since childhood. Positive D dimer 08/18/2016 Tightness in chest 08/03/2016 Left lumbar radiculopathy 07/09/2016 Chronic narcotic use 03/03/2016 Intertrigo 09/10/2015 PID (pelvic inflammatory disease) 09/04/2015 Kathleen-Mustafa tear 12/06/2013 Anemia due to blood loss, acute 12/06/2013 Hematemesis 10/30/2013 CARRENO (headache) 11/30/2012 GI bleed 11/22/2012 Gastric ulcer with hemorrhage 11/13/2012 LFT elevation 04/07/2012 Gastroesophageal reflux disease 02/05/2012 Drug-seeking behavior 01/11/2012 contractions 12/23/2011 Ureteral stone 12/02/2011 Abdominal pain 11/16/2011 Anorexia 11/16/2011 CARDIOVASCULAR SCREENING; LDL GOAL LESS THAN 160 01/08/2010 Low back pain 02/25/2009 Dysmenorrhea 01/05/2009 Postural orthostatic tachycardia (POTS) 01/29/20 06 Allergic rhinitis 10/16/2005 Overview: Problem list name updated by automated process. Provider to review Borderline personality disorder 09/14/2005 Overview: Overview: LW Onset: 03Nls40 LW Onset: 62Bgg83 ; Borderline Personality Insomnia 09/14/2005 Overview: Overview: LW Onset: 13Eel62 LW Onset: 41Muv92 ; Insomnia NOS Major depressive disorder, single episode 2004 Overview: Overview: LW Onset: 15Zuu15 LW Onset: 66Gtk53 ; Depression Major NOS Posttraumatic stress disorder 09/14/2005 Overview: Overview: LW Onset: 29Jno72 LW Onset: 99Qoz37 ; Post Traumatic Stress Disorder Prolonged Doing therapy at [facility]. Childhood trauma Dysplasia of cervix 06/29/2005 Overview: Problem list name updated by automated process. Provider to review Eating disorder 04/23/2004 Overview: Problem list name updated by automated process. Provider to review Dysthymic disorder 04/23/2004 Resolved Problems Problem Noted Date Diagnosed Date Resolved Date Ulcer of right foot, limited to breakdown of skin 11/25/2023 01/17/2024 Streptococcus viridans infection 12/28/2020 04/05/2023 CAP (community acquired pneumonia) 12/24/2020 01/01/2023 Pneumonia of right lung due to infectious organism, unspecified part of lung 12/23/202001/01 Intractable nausea and vomiting 05/08/2020 01/01/2023 Fever 07/20/2017 01/14/2018 Atrial flutter 07/27/2016 01/01/2023 Vomiting 04/09/2016 01/01/2023 Nausea & vomiting 09/21/2015 01/01/2023 Indication for care in labor or delivery 12/28/2013 01/14/2018 Protein-calorie malnutrition (H24) 12/06/2013 01/01/2023 Opioid type dependence, continuous 12/06/2013 01/01/2023 Abdominal pain complicating , antepartum 10/31/2013 01/14/2018 Meningitis 11/24/2012 03/22/2019 (spontaneous vaginal delivery) 04/07/2012 01/14/2018 Nausea and vomiting 11/16/2011 01/01/20 23 Acute diarrhea 11/16/2011 01/01/2023 Hyperemesis gravidarum 11/16/201101/01 Sepsis 11/04/2011 01/01/2023 Overview: Problem list name updated by automated process. Provider to review Intermittent asthma 07/09/2009 01/14/20 18 Dysplasia of cervix 05/22/2009 01/01/20 23 Overview: Persistent -involving endocervix -history of prior treatment (cryocautery) Papanicolaou smear of vagina with low grade squamous intraepithelial lesion (LGSIL) 05/13/2009 05/22/2009 Seizure 05/03/2008 09/10/2023 High-risk , young primigravida 04/17/2008 12/10/2008 Overview: (Problem list name updated by automated process. Provider to review and confirm.) Mild persistent asthma 10/16/200507/09 Bipolar I disorder, most rec ent episode depressed 09/18/2004 01/17/2024 Dysplasia of cervix (uteri) 05/29/2004 06/29/2005 Overview: Problem list name updated by automated process. Provider to review and confirm Encounters Date Type Department Care Team Description 03/24/2024 5:34 PM CDT - 03/24/2024 10:58 PM CDT Emergency [facility] Emergency Dept [address] [place] [phone] Emily Rogers MD Neck pain Discharge Disposition: Home or Self Care 03/24/2024 Travel 03/23/2024 2:30 PM CDT E-Visit [facility] [address] [place] [phone] Segundo Virgen MD Other (Entered automatically based on ngozi... 03/23/2024 Telephone [facility] [address] [place] [phone] Segundo Virgen MD Medication Request (hydromorphone) 03/23/2024 [facility] [address] [place] [phone] Segundo Virgen MD Refill Request 03/22/[address] [facility] [address] [place] [phone] Rita Gordon, DONNA 03/22/[address] [facility] [place] [address] [place] [phone] Gregorio Dalton PA-C Medication Refill 03/21/2024 4:35 AM CDT E-Visit [facility] [address] [place] [address] Segundo Virgen MD Other (Entered automatically based on ngozi... 03/20/2024 1:58 PM CDT - 03/20/2024 11:59 PM CDT Hospital Encounter [facility] [address] [place] [address] Donavon Quinones MD Bunney, Andrew, MD Poor intravenous access Discharge Disposition: Home or Self Care 03/20/2024 Orders Only [facility] [address] [place] [address] Segundo Virgen MD Poor intravenous access (Primary Dx) 03/20/2024 Travel 03/20/2024 Telephone [facility] [address] [place] [address] Ugo Knott, RN 03/20/2024 [facility] [address] [place] [address] Segundo Virgen MD 03/20/2024 Orders Only [facility]iology [address] [place] [phone] Karla Bay RN Poor intravenous access (Primary Dx) 03/20/2024 Telephone [facility] [address] [place] [address] Ugo Knott, RN 03/19/2024 9:02 AM CDT - 03/19/2024 2:49 PM CDT Emergency [facility] Emergency Dept [address] [place] [address] Luz Cazares DO Problem with vascular access Discharge Disposition: Home or Self Care 03/19/2024 Travel 03/18/2024 10:05 AM CDT [facility] [address] [place] [phone] Segundo Virgen MD Other (Entered automatically based on ngozi... 03/17/2024 Telephone [facility] [address] [place] [phone] Segundo Virgen MD Refill Request (dilaudid) 03/17/2024 Telephone [facility] [address] [place] [phone] Segundo Virgen MD Home Infusion 03/16/2024 Telephone [facility] [address] [place] [phone] Segundo Virgen MD Medication Request 03/15/2024 7:49 AM CDT - 03/15/2024 12:36 PM CDT Hospital Encounter [facility] [address] [facility] [place] [address] Non-Fv Credentialed Provider, Radiology Other iron deficiency anemia (Primary Dx); Infection of lumbar spine (H) Discharge Disposition: Home or Self Care 03/14/2024 10:30 AM CDT E-Visit [facility] [address] [place] [phone] Segundo Virgen MD Other (Entered automatically based on ngozi... 03/14/2024 Telephone [facility] [address] [place] [phone] Deepika Tom, DONNA 03/14/2024 Telephone [facility] [address] [place] [phone] Segundo Virgen MD Orders 03/14/2024 Telephone [facility] [address] [place] [phone] Segundo Virgen MD Referral ([facility]) 03/14/2024 Orders Only [facility] [address] [place] [address] Huan Wallis MD Infection of lumbar spine (H) (Primary Dx) 03/09/2024 Telephone [facility] [address] [place] [address] Segundo Virgen MD Forms ([facility]) 03/06/2024 MyC Medical Advice [facility] [address] [place] [address] Segundo Virgen MD 03/05/2024 8:55 PM CDT - 03/13/2024 5:17 PM CDT Hospital Encounter [facility] [address] [place] [phone] Sam Schofield MD Eklund, MD Joanie Tovar, Lesley Alfredo MD Osteomyelitis, unspecified site, unspecified type (H) (Primary Dx); Positive blood culture; Anemia; Back pain; Hypokalemia; Chronic bilateral low back pain without sciatica; Multiple subsegmental pulmonary emboli without acute cor pulmonale (H); Acute low back pain with radicular symptoms, duration less than 6 weeks; Discitis, unspecified spinal region Discharge Disposition: Home or Self Care 03/05/2024 Travel 03/03/2024 Telephone [facility] [address] [place] [address] Segundo Virgen MD Pain 03/03/2024 [facility] [address] [place] [address] Segundo Virgen MD Refill Request 03/02/2024 10:55 PM CDT E-Visit [facility] [address] [place] [address] Segundo Virgen MD Other (Entered automatically based on ngozi... 03/02/2024 1:22 PM CDT - 03/02/2024 10:51 PM CDT Emergency [facility] Emergency Dept [address] [place] [address] Janie Arellano MD [place]arn[place], Christopher M, MD McDonald, Lindsey E, Acute midline low back pain without sciatica; Paresthesias Discharge Disposition: Home or Self Care 03/02/2024 Travel 03/01/2024 1:40 PM CDT Virtual Visit [place] [address] [place] [address] [facility] [place] [address] Allyssa Justice MD Iron deficiency anemia, unspecified iron deficiency anemia type (Primary Dx); Anemia, unspecified type; Pulmonary nodules 03/01/2024 PRE VISIT [place] [address], [place] [address] [facility] [place] [address] Allyssa Justice MD *-*INCOMING RECORDS*-* (Anemia, unspecified type [D64.9]) 02/28/2024 MyC Refill [facility] [address] [place] [phone] Segundo Virgen MD Refill Request 02/26/2024 3:38 AM CDT - 02/26/2024 8:17 AM CDT Emergency [facility] Emergency Dept [address] [place] [address] Kingsley Kimble MD [place], Lucas Ray, MD Acute midline low back pain with left-sided sciatica Discharge Disposition: Home or Self Care 02/26/2024 Travel 02/23/2024 4:55 PM CDT E-Visit [facility] [address] [place] [phone] Segundo Virgen MD Other (Entered automatically based on ngozi... 02/23/2024 MyC Refill [facility] [address] [place] [phone] Segundo Virgen MD Refill Request 02/22/2024 MyC Medical Advice [facility] [address] [place] [phone] Segundo Virgen MD Acute low back pain with radicular symptoms, duration less than 6 weeks (Primary Dx) 02/21/2024 2:00 PM CDT Virtual Visit [facility] [id number] [place] [address] [phone] Segundo Virgen MD Acute low back pain with radicular symptoms, duration less than 6 weeks (Primary Dx); Nausea and vomiting, unspecified vomiting type; POTS (postural orthostatic tachycardia syndrome) 02/18/2024 2:05 AM CDT E-Visit [facility] [address] [place] [phone] Segundo Virgen MD Other (Entered automatically based on ngozi... 02/17/2024 3:57 PM CDT - 02/17/2024 6:34 PM CDT Emergency [facility] Emergency Dept [address] [place] [address] Seth Farias MD Nausea and vomiting, unspecified vomiting type; Orthostatic syncope Discharge Disposition: Home or Self Care 02/17/2024 12:57 AM CDT - 02/17/2024 5:36 AM CDT Emergency [facility] Emergency Dept [address] [place] [address] Kingsley Kimble MD Chest pain, unspecified type Discharge Disposition: Home or Self Care 02/17/2024 MyC Refill [facility] [address] [place] [phone] Segundo Virgen MD Refill Request 02/17/2024 Telephone [facility] [address] [place] [address] Segundo Virgen MD Patient Request 02/17/2024 Travel 02/11/2024 4:45 AM CDT - 02/11/2024 10:57 AM CDT Emergency [facility] Emergency Dept [address] [place] [address] Sam Alvarado MD Goodwin, Shaun M, MD Post-operative pain exacerbating chronic pain syndrome; Nausea and vomiting, unspecified vomiting type; COVID-19 virus infection Discharge Disposition: Home or Self Care 02/11/2024 Travel 02/08/2024 11:30 AM CDT [facility] [address] [place] [address] Segundo Virgen MD Other (Entered automatically based on ngozi... 02/08/2024 [facility] [address] [place] [address] Segundo Virgen MD 02/08/2024 [facility]phone [facility] [address] [place] [address] Segundo Virgen MD Medication Request 02/07/2024 2:08 AM CDT - 02/07/2024 6:57 AM CDT Emergency [facility] Emergency Dept [address] [place] [address] Kingsley Kimble MD Doan, Tiffani, DO Syncope, unspecified syncope type; Nausea and vomiting, unspecified vomiting type; Postoperative pain Discharge Disposition: Home or Self Care 02/07/2024 [facility] [address] [place] [address] Segundo Virgen MD Refill Request 02/07/2024 Travel 02/04/2024 6:59 AM SITE SAFETY REPRESENTATIVE - 02/04/2024 11:00 AM SITE SAFETY REPRESENTATIVE Hospital Encounter [facility] [address] [place] [address] Malia Garrett, DO Quinones, Donavon Denson MD Poor intravenous access Discharge Disposition: Home or Self Care 02/04/2024 MyC Medical Advice [facility] [address] [place] [phone] Segundo Virgen MD 02/03/2024 3:35 AM SITE SAFETY REPRESENTATIVE E-Visit [facility] [address] [place] [address] Segundo Virgen MD Other (Entered automatically based on ngozi... 02/03/2024 Home Infusion ([facility]) [facility] [address] [place] [address] Opal Bustillos [facility] Home Infusion 02/03/2024 MyC Refill [facility] [address] [place] [phone] Segundo Virgen MD Refill Request 02/01/2024 MyC Medical Advice [facility] Interventional Radiology [address] [place] [address] Norma Arredondo, DONNA 01/31/2024 MyC Medical Advice [facility] [address] [place] [address] Segundo Virgen MD 01/29/2024 9:05 PM SITE SAFETY REPRESENTATIVE - 01/30/2024 1:12 AM SITE SAFETY REPRESENTATIVE Emergency [facility] Emergency Dept [address] [place] [address] Renetta Humphries MD Syncope, unspecified syncope type; Rib contusion, left, initial encounter; Pulmonary nodules Discharge Disposition: Home or Self Care 01/29/2024 Travel 01/28/2024 5:55 PM SITE SAFETY REPRESENTATIVE - 01/29/2024 1:07 AM SITE SAFETY REPRESENTATIVE Emergency [facility] Emergency Dept [address] [place] [address] Livia Gutierrez MD Syncope and collapse; Rib pain on left side Discharge Disposition: Home or Self Care 01/28/2024 Travel 01/20/[address] [facility] [address] [facility] [address] [place] [address] Borisoctavio Sienna Finley, 01/19/2024 3:50 PM SITE SAFETY REPRESENTATIVE E-Visit [facility] [address] [place] [address] Segundo Virgen MD Other (Entered automatically based on ngozi... 01/19/2024 12:01 AM SITE SAFETY REPRESENTATIVE - 01/19/2024 5:04 AM SITE SAFETY REPRESENTATIVE Emergency [facility] Emergency Dept [address] [place] [address] Janie Arellano MD Syncope, unspecified syncope type; Acute pain of right shoulder Discharge Disposition: Home or Self Care 01/18/2024 4:03 PM SITE SAFETY REPRESENTATIVE - 01/18/2024 6:53 PM SITE SAFETY REPRESENTATIVE Emergency [facility] Emergency Dept [address] [place] [address] Josh Castanon MD Syncope and collapse; Vomiting, unspecified vomiting type, unspecified whether nausea present Discharge Disposition: Home or Self Care 01/18/2024 Travel 01/18/2024 [facility]C [facility] [address] [place] [phone] Brittney Reyes RN 01/18/2024 Telephone [facility] [address] [place] [address] Segundo Virgen MD Appointment 01/17/2024 2:30 PM SITE SAFETY REPRESENTATIVE [facility] [address] [place] [phone] Segundo Virgen MD Acute embolism and thrombosis of deep veins of right upper extremity (H) (Primary Dx); Episodic opioid dependence (H); Mixed personality disorder (H); Morbid obesity (H) 01/14/2024 10:56 PM SITE SAFETY REPRESENTATIVE - 01/15/2024 3:24 AM SITE SAFETY REPRESENTATIVE Emergency [facility] Emergency Dept [address] [place] [phone] Sam Martini MD Tachycardia; Opiate withdrawal (H); Elevated liver function tests Discharge Disposition: Home or Self Care 01/14/2024 Travel 01/11/2024 Medical Correspondence [facility] [address] [place] [phone] Scan, Non-Provider 01/11/2024 Result Follow Up [facility] - General Medicine & Pediatrics [facility] [place] [address] Rafael Watson MD 01/10/2024 MyC Medical Advice [facility] [address] [place] [phone] Segundo Virgen MD 01/10/2024 Telephone [facility] [address] [place] [phone] Segundo Virgen MD Forms ([facility] - Prescriber Orders) 01/10/2024 Telephone [facility] [address] [place] [phone] Segundo Virgen MD Forms ([facility] - Specialty Referral) 01/09/2024 10:13 PM SITE SAFETY REPRESENTATIVE - 01/10/2024 6:39 PM SITE SAFETY REPRESENTATIVE Emergency [facility] [address] [place] [phone] Manpreet Marin MD Melander, Ian Michael, MD Aronson, Christopher D, MD Positive blood culture Discharge Disposition: Home or Self Care 01/09/2024 Travel 01/08/2024 3:19 AM SITE SAFETY REPRESENTATIVE - 01/08/2024 9:25 AM SITE SAFETY REPRESENTATIVE Emergency [facility] Emergency Dept [address] [place] [address] Melissa Chavez MD Acute cystitis with hematuria; Nausea and vomiting, unspecified vomiting type; Syncope, unspecified syncope type Discharge Disposition: Home or Self Care 01/08/2024 MyC Medical Advice [facility] [address] [place] [phone] Segundo Virgen MD 01/08/[address] [facility] [address] [place] [phone] Gardenia Ceja RN Medication Request 01/08/2024 Travel 01/05/2024 2:01 AM SITE SAFETY REPRESENTATIVE - 01/05/2024 2:20 PM SITE SAFETY REPRESENTATIVE Emergency [facility] Emergency Dept [address] [place] [address] Janie Arellano MD Doan, Tiffani, DO Injury of head, initial encounter; Elevated LFTs; Abdominal pain, unspecified abdominal location Discharge Disposition: Home or Self Care 01/04/2024 Travel 01/04/2024 Telephone [facility] [address] [place] [address] Segundo Virgen MD Refill Request (FLUCONAZOLE 150MG TABS 150) 01/04/2024 [facility] [address] [place] [address] Segundo Virgen MD 01/01/2024 3:32 PM SITE SAFETY REPRESENTATIVE - 01/01/2024 8:10 PM SITE SAFETY REPRESENTATIVE Emergency [facility] Emergency Dept [address] [place] [address] Luz Cazares DO Chest pain, unspecified type; Single subsegmental pulmonary embolism without acute cor pulmonale (H) Discharge Disposition: Home or Self Care 01/01/2024 Travel 12/30/2023 Telephone [facility] [address] [place] [address] Segundo Virgen MD 12/27/2023 MyC Medical Advice [facility] [address] [place] [phone] Segundo Virgen MD Multiple subsegmental pulmonary emboli without acute cor pulmonale (H) 12/27/2023 Travel 12/24/2023 9:21 PM SITE SAFETY REPRESENTATIVE - 12/25/2023 3:25 AM SITE SAFETY REPRESENTATIVE Emergency [facility] Emergency Dept [address] [place] [phone] Seth Farias MD Near syncope; Gastroparesis; POTS (postural orthostatic tachycardia syndrome); Multiple subsegmental pulmonary emboli without acute cor pulmonale (H) Discharge Disposition: Home or Self Care from Last 3 Months Immunizations Name Administration Dates Next Due DTaP, Unspecified 02/05/2014 Flu, Unspecified 08/29/2012,08/29/2010 [id number] Novel Flu 09/26/2012 HepB 08/13/2000,07/16/2000 HepB, Unspecified 03/16/2005 Hepatitis A (ADULT 19+) 03/16/2005 Influenza (IIV3) PF 10/17/2013, 3,08/29/2010,09/29 Influenza Vaccine >6 months,quad, PF 08/15/2018 Influenza Vaccine, 6+MO IM (QUADRIVALENT W/PRESERVATIVES) 12/08/2012,09/17/2012 MMR 07/16/2000,08/11/1988 Meningococcal (Menomune??) 03/16/2005 Meningococcal ACWY (Menactra??) 03/16/2005 Pneumococcal 23 valent 12/08/2012,10/13/2008, Poliovirus, inactivated (IPV) 03/16/2005, 991 TD,PF 7+ (Tenivac) 03/16/2005, 5,07/16/2000,11/26 Td (Adult), Adsorbed 1985 Td, Absorbed, Pf, Adult, Lf Unspecified 03/16/2005,1985 Tdap (Adult) Unspecified Formulation 1985 Typhoid Oral 03/16/2005 Yellow Fever 03/16/2005 Family History Medical History Relation Comments Colon Cancer Father Depression Father Obesity Father Substance Abuse Father Alcoholic Breast Cancer Mother Depression Mother Obesity Mother Other Cancer Mother uterine cacer Diabetes Other Cancer - colorectal Paternal Grandfather d, diagnosed in 50's, at 54 Diabetes Paternal Grandmother Relation Status Comments Father Alive Mother Alive Other Paternal Grandfather Paternal Grandmother Sister Alive Social History Tobacco Use Types Packs/Day Years Used Date Smoking Tobacco: Never Passive Smoke Exposure: Never Smokeless Tobacco: Never Tobacco Cessation:Counseling Given: Not Answered Alcohol Use Standard Drinks/Week Comments Yes 0 (1 standard drink = 0.6 oz pur e alcohol) occasional PHQ-2 Answer Date Recorded PHQ-2 Score 2 02/21/2024 Adolescent Education Answer Date Record ed Getting School Help Needed Not on file 08/22 Food Insecurity Answer Date Recorded Within the past 12 months, d id you worry that your food would run out before you got money to buy more? Yes 08/26/2023 Within the past 12 months, d id the food you bought just not last and you didn? t have money to get more? No 08/26/2023 Housing Stability Answer Date Recorded Do you have housing? Yes 08/26/2023 Are you worried about losing your housing? No 08/26/2023 Financial Resource Strain Answer Date R ecorded Within the past 12 months, h ave you or your family members you live with been unable to get utilities (heat, electricity) when it was really needed? No 08/26/2023 Transportation Needs Answer Date Record ed Within the past 12 months, h as lack of transportation kept you from medical appointments, getting your medicines, non-medical meetings or appointments, work, or from getting things that you need? Yes 08/26/2023 Sex and Gender Information Value Date Recorded Sex Assigned at Female 05/26/2021 10:37 AM CDT Gender Identity Female 05/26/2021 10:37 AM CDT Sexual Orientation Straight 05/26/2021 10 :37 AM CDT Last Filed Vital Signs Vital Sign Reading Time Taken Comments Blood Pressure 98/60 03/24/2024 8:08 PM CDT Pulse 72 03/24/2024 8:08 PM CDT Temperature 36.7 ??C (98.1 ??F) 03/24/2024 8:08 PM CD T Respiratory Rate 20 03/24/2024 8:08 PM CDT Oxygen Saturation 96% 03/24/2024 8:08 PM CDT Inhaled Oxygen Concentration - - Weight 88.7 kg (195 lb 8 oz) 03/24/2024 5:33 PM CDT Height 167.6 cm (5' 6) 03/24/2024 5:33 PM CDT Body Mass Index 31.55 03/24/2024 5:33 PM CDT Plan of Treatment Upcoming Encounters Date Type Department Care Team (Late st Contact Info) Description 05/09/2024 10:00 AM CDT Office Visit [facility] [address] [place] [address] [place] [address] [place], [place] [phone] Health Maintenance Due Date Last Done Comments CONTROLLED SUBSTANCE AGREEMENT FOR CHRONIC PAIN MANAGEMENT 1985 HEPATITIS A IMMUNIZATION (2 of 2 - Risk 2-dose series) 09/15/2005 03/16/2005 IPV IMMUNIZATION (3 of 3 - 4-dose series) 09/15/2005 03/16/2005, 09/07/1991 COVID-19 Vaccine (3 - season) 2023 10/12/2021, 02/03/2021 INFLUENZA VACCINE (#1) 2023 8, 10/17/2013, 12/08/2012, Additional history exists ANNUAL REVIEW OF HM ORDERS 01/01/2024 01/01/2023 LIPID 01/01/2024 01/01/2023 YEARLY PREVENTIVE VISIT 01/01/2024 01/01/20 23, 12/10/2008, 04/23/2004 DTAP/TDAP/TD IMMUNIZATION (4 - Tdap) 02/06/2024 02/05/2014, 03/16/2005, 03/16/2005, Additional history exists LEONARDA ASSESSMENT 08/30/2024 08/30/2023, 07/30, 04/29/2018, Additional history exists PHQ-9 02/20/2025 02/21/2024, 05/01, 04/05/2023, Additional history exists GLUCOSE 03/24/2027 03/24/2024, 02/27, 03/09/2024, Additional history exists ADVANCE CARE PLANNING 01/11/2028 01/11/2023 HEPATITIS B IMMUNIZATION Completed 005, 08/13/2000, 07/16/2000 MENINGITIS IMMUNIZATION Aged Out 03/16/2005, 03/16 No longer eligible based on patient's age to complete this topic HIV SCREENING Completed 11/24/2012, 03/30, 02/20/2006 Pneumococcal Vaccine: Pediatrics (0 to 5 Years) and At-Risk Patients (6 to 64 Years) Aged Out 12/08/2012, 10/13/2008, 09/23/2006 No longer eligible based on patient's age to complete this topic HEPATITIS C SCREENING Completed 02/13/2016 , 10/08/2008, 02/20/2006 PAP Discontinued 12/29/2017, 04/29, 12/10/2008, Additional history exists MAMMO SCREENING Discontinued 09/02/2018 URINE DRUG SCREEN Discontinued 05/05/2023, , 02/01/2012 HPV IMMUNIZATION Aged Out No longer e ligible based on patient's age to complete this topic RSV MONOCLONAL ANTIBODY Aged Out No l onger eligible based on patient's age to complete this topic Medical Devices Implanted Type Area Gold Nib Grinder Device Identifier Shelf Expiration Date Model / Serial / Lot Picc- 1 Implanted:Qty : 1 on 12/24/2020 by Malia Garrett DO Catheter Right: Arm BARD / / [id number] Port- Implanted:Qty : 1 on 03/20/2024 by Seth Santillan MD Port [id number] / / [id number] Description:8Fr SmartPort Explanted Type Area Gold Nib Grinder Device Identifier Shelf Expiration Date Model / Serial / Lot Smart Port-02/04/2024 Implanted:Qty : 1 on 02/04/2024 by Josh Prasad MD Explanted:Qty : 1 on 03/20/2024 by Seth Santillan MD Catheter Right: Chest Wall [employer] [id number] 11/28/2026 / / [id number] Port- 3 Implanted:Qty : 1 on 07/29/2023 by Donavon Quinones MD Explanted:Qty : 1 on 11/12/2023 by Josh Prasad MD Port Left: Chest / / [id number] Description:8 FR power port slim Procedures Procedure Name Priority Date/Time Associated Diagnosis Comments CBC WITH PLATELETS & DIFFERENTIAL STAT 03/24/2024 8:27 PM CDT CBC WITH PLATELETS AND DIFFERENTIAL STAT 03/24/2024 8:27 PM CDT BASIC METABOLIC PANEL STAT 03/24/2024 8:27 PM CDT CRP INFLAMMATION STAT 03/24/2024 8:27 PM CDT ERYTHROCYTE SEDIMENTATION RATE AUTO STAT 03/24/2024 8:27 PM CDT INFLUENZA A/B, RSV, & SARS-COV2 PCR STAT 03/24/2024 7:14 PM CDT IR PORT CHECK RIGHT Routine 03/20/2024 4 :49 PM CDT Poor intravenous access XR CHEST 2 VIEWS STAT 03/19/2024 10:17 AM CDT IR BONE BIOPSY VERTEBRAL Routine 03/15/2024 10:09 AM CDT Infection of lumbar spine (H) FUNGAL OR YEAST CULTURE ROUTINE Routine 03/15/2024 9:58 AM CDT AEROBIC BACTERIAL CULTURE ROUTINE Routine 03/15/2024 9:58 AM CDT ANAEROBIC BACTERIAL CULTURE ROUTINE Routine 03/15/2024 9:57 AM CDT FUNGAL OR YEAST CULTURE ROUTINE Routine 03/15/2024 9:57 AM CDT ANAEROBIC BACTERIAL CULTURE ROUTINE Routine 03/15/2024 9:57 AM CDT AEROBIC BACTERIAL CULTURE ROUTINE Routine 03/15/2024 9:57 AM CDT PARTIAL THROMBOPLASTIN TIME STAT 03/15/2024 8:49 AM CDT INR STAT 03/15/2024 8:49 AM CDT CBC WITH PLATELETS STAT 03/13/2024 1: 13 PM CDT CBC WITH PLATELETS & DIFFERENTIAL Routine 03/12/2024 5:33 AM CDT CBC WITH PLATELETS AND DIFFERENTIAL Routine 03/12/2024 5:33 AM CDT BASIC METABOLIC PANEL Routine 03/12/2024 5:[address] ABDOMEN PELVIS W/O CONTRAST Routine 03/11/2024 1:00 PM CDT LACTIC ACID WHOLE BLOOD STAT 03/10/2024 9:11 AM CDT ROUTINE UA WITH MICROSCOPIC REFLEX TO CULTURE Routine 03/09/2024 9:14 PM CDT LACTIC ACID WHOLE BLOOD STAT 03/09/2024 10:00 AM CDT BLOOD CULTURE STAT 03/09/2024 9:37 AM CDT CBC WITH PLATELETS & DIFFERENTIAL Routine 03/09/2024 6:18 AM CDT CBC WITH PLATELETS AND DIFFERENTIAL Routine 03/09/2024 6:18 AM CDT BASIC METABOLIC PANEL Routine 03/09/2024 6:18 AM CDT BLOOD CULTURE STAT 03/09/2024 4:59 AM CDT PROLACTIN STAT 03/08/2024 5:31 PM CDT LACTIC ACID WHOLE BLOOD STAT 03/08/2024 5:31 PM CDT VERIGENE GN PANEL Routine 03/08/2024 2:1 9 PM CDT BLOOD CULTURE STAT 03/08/2024 2:19 PM CDT CBC WITH PLATELETS Routine 03/08/2024 2: 02 PM CDT LACTIC ACID WHOLE BLOOD STAT 03/08/2024 2:02 PM CDT BLOOD CULTURE STAT 03/07/2024 10:49 AM CDT ERYTHROCYTE SEDIMENTATION RATE AUTO Routine 03/07/2024 10:49 AM CDT CRP INFLAMMATION Routine 03/07/2024 10:49 AM CDT BLOOD CULTURE STAT 03/06/2024 11:44 PM CDT HEMOGLOBIN Routine 03/06/2024 10:24 PM CDT PREPARE RED BLOOD CELLS (UNIT) Routine 03/06/2024 8:50 PM CDT PREPARE RED BLOOD CELLS (UNIT) Routine 03/06/2024 8:50 PM CDT LACTIC ACID WHOLE BLOOD STAT 03/06/2024 8:22 PM CDT ABO/RH TYPE AND SCREEN STAT 03/06/2024 4:49 PM CDT TYPE AND SCREEN, ADULT STAT 03/06/2024 4:49 PM CDT MAGNESIUM STAT 03/06/2024 4:49 PM CDT CBC WITH PLATELETS STAT 03/06/2024 4: 49 PM CDT BASIC METABOLIC PANEL STAT 03/06/2024 4:49 PM CDT ROUTINE UA WITH MICROSCOPIC REFLEX TO CULTURE STAT 03/06/2024 1:48 PM CDT BLOOD CULTURE STAT 03/05/2024 10:21 PM CDT OCCULT BLOOD STOOL STAT 03/05/2024 10:14 PM CDT CBC WITH PLATELETS & DIFFERENTIAL STAT 03/05/2024 9:48 PM CDT BLOOD CULTURE STAT 03/05/2024 9:48 PM CDT HEPATIC FUNCTION PANEL Add-On 03/05/2024 9:48 PM CDT MAGNESIUM STAT 03/05/2024 9:48 PM CDT CBC WITH PLATELETS AND DIFFERENTIAL STAT 03/05/2024 9:48 PM CDT LACTIC ACID WHOLE BLOOD STAT 03/05/2024 9:48 PM CDT ERYTHROCYTE SEDIMENTATION RATE AUTO STAT 03/05/2024 9:48 PM CDT CRP INFLAMMATION STAT 03/05/2024 9:48 PM CDT BASIC METABOLIC PANEL STAT 03/05/2024 9:48 PM CDT VERIGENE GP PANEL STAT 03/02/2024 9:1 0 PM CDT BLOOD CULTURE STAT 03/02/2024 9:10 PM CDT ERYTHROCYTE SEDIMENTATION RATE AUTO STAT 03/02/2024 9:10 PM CDT BLOOD CULTURE STAT 03/02/2024 8:42 PM CDT MR LUMBAR SPINE W/O & W CONTRAST STAT 03/02/2024 7:24 PM CDT CBC WITH PLATELETS & DIFFERENTIAL STAT 03/02/2024 1:42 PM CDT CBC WITH PLATELETS AND DIFFERENTIAL STAT 03/02/2024 1:42 PM CDT CRP INFLAMMATION STAT 03/02/2024 1:42 PM CDT BASIC METABOLIC PANEL STAT 03/02/2024 1:42 PM CDT HEMOGLOBIN Add-On 03/02/2024 1:42 PM CDT EXTRA PURPLE TOP TUBE STAT 03/02/2024 1:42 PM CDT EXTRA GREEN TOP (LITHIUM HEPARIN) TUBE STAT 03/02/2024 1:42 PM CDT EXTRA RED TOP TUBE STAT 03/02/2024 1: 42 PM CDT EXTRA BLUE TOP TUBE STAT 03/02/2024 1 :42 PM CDT EXTRA TUBE STAT 03/02/2024 1:42 PM CDT INFLUENZA A/B, RSV, & SARS-COV2 PCR STAT 02/17/2024 4:12 PM CDT EKG 12-LEAD, TRACING ONLY STAT 02/17/2024 2:24 PM CDT XR SHOULDER RIGHT G/E 3 VIEWS STAT 02/17/2024 4:31 AM CDT XR HAND PORT LEFT G/E 3 VIEWS STAT 02/17/2024 2:48 AM CDT XR CHEST 2 VIEWS STAT 02/17/2024 2:18 AM CDT CBC WITH PLATELETS & DIFFERENTIAL STAT 02/17/2024 1:48 AM CDT CBC WITH PLATELETS AND DIFFERENTIAL STAT 02/17/2024 1:48 AM CDT TROPONIN T, HIGH SENSITIVITY STAT 02/17/2024 1:48 AM CDT BASIC METABOLIC PANEL STAT 02/17/2024 1:48 AM CDT EKG 12-LEAD, TRACING ONLY STAT 02/17/2024 1:04 AM CDT CBC WITH PLATELETS STAT 02/11/2024 5: 38 AM CDT BASIC METABOLIC PANEL STAT 02/11/2024 5:[address] CHEST W/O CONTRAST STAT 02/07/2024 4:[address] HEAD W/O CONTRAST STAT 02/07/2024 4:22 AM CDT CBC WITH PLATELETS & DIFFERENTIAL STAT 02/07/2024 3:23 AM CDT CBC WITH PLATELETS AND DIFFERENTIAL STAT 02/07/2024 3:23 AM CDT TROPONIN T, HIGH SENSITIVITY STAT 02/07/2024 3:23 AM CDT BASIC METABOLIC PANEL STAT 02/07/2024 3:23 AM CDT EKG 12-LEAD, TRACING ONLY STAT 02/07/2024 2:20 AM CDT IR CHEST PORT PLACEMENT > 5 YRS OF AGE Routine: Next available opening 02/04/2024 9:18 AM SITE SAFETY REPRESENTATIVE Poor intravenous access CT CHEST ABDOMEN PELVIS W/O CONTRAST STAT 01/29/2024 11:02 PM SITE SAFETY REPRESENTATIVE CT HEAD W/O CONTRAST STAT 01/29/2024 11:01 PM SITE SAFETY REPRESENTATIVE BASIC METABOLIC PANEL STAT 01/29/2024 10:20 PM SITE SAFETY REPRESENTATIVE EKG 12-LEAD, TRACING ONLY STAT 01/29/2024 9:07 PM SITE SAFETY REPRESENTATIVE HCG QUALITATIVE URINE STAT 01/29/2024 12:00 AM SITE SAFETY REPRESENTATIVE ROUTINE UA WITH MICROSCOPIC REFLEX TO CULTURE STAT 01/29/2024 12:00 AM SITE SAFETY REPRESENTATIVE XR CHEST 2 VIEWS STAT 01/28/2024 10:25 PM SITE SAFETY REPRESENTATIVE INFLUENZA A/B, RSV, & SARS-COV2 PCR STAT 01/28/2024 9:33 PM SITE SAFETY REPRESENTATIVE CBC WITH PLATELETS & DIFFERENTIAL STAT 01/28/2024 6:44 PM SITE SAFETY REPRESENTATIVE EXTRA RED TOP TUBE STAT 01/28/2024 6: 44 PM SITE SAFETY REPRESENTATIVE EXTRA BLUE TOP TUBE STAT 01/28/2024 6 :44 PM SITE SAFETY REPRESENTATIVE CBC WITH PLATELETS AND DIFFERENTIAL STAT 01/28/2024 6:44 PM SITE SAFETY REPRESENTATIVE EXTRA TUBE STAT 01/28/2024 6:44 PM SITE SAFETY REPRESENTATIVE TROPONIN T, HIGH SENSITIVITY STAT 01/28/2024 6:44 PM SITE SAFETY REPRESENTATIVE BASIC METABOLIC PANEL STAT 01/28/2024 6:44 PM SITE SAFETY REPRESENTATIVE EKG 12-LEAD, TRACING ONLY STAT 01/28/2024 5:54 PM SITE SAFETY REPRESENTATIVE XR CLAVICLE RIGHT 2 VIEWS STAT 01/19/2024 2:12 AM SITE SAFETY REPRESENTATIVE XR SHOULDER RIGHT G/E 3 VIEWS STAT 01/19/2024 2:11 AM SITE SAFETY REPRESENTATIVE EKG 12-LEAD, TRACING ONLY STAT 01/18/2024 10:14 PM SITE SAFETY REPRESENTATIVE EXTRA RED TOP TUBE STAT 01/18/2024 4: 49 PM SITE SAFETY REPRESENTATIVE EXTRA TUBE STAT 01/18/2024 4:49 PM SITE SAFETY REPRESENTATIVE CBC WITH PLATELETS & DIFFERENTIAL STAT 01/18/2024 4:47 PM SITE SAFETY REPRESENTATIVE CBC WITH PLATELETS AND DIFFERENTIAL STAT 01/18/2024 4:47 PM SITE SAFETY REPRESENTATIVE BASIC METABOLIC PANEL STAT 01/18/2024 4:47 PM SITE SAFETY REPRESENTATIVE EKG 12-LEAD, TRACING ONLY STAT 01/18/2024 4:26 PM SITE SAFETY REPRESENTATIVE CBC WITH PLATELETS & DIFFERENTIAL STAT 01/15/2024 1:41 AM SITE SAFETY REPRESENTATIVE CBC WITH PLATELETS AND DIFFERENTIAL STAT 01/15/2024 1:41 AM SITE SAFETY REPRESENTATIVE LACTIC ACID WHOLE BLOOD STAT 01/15/2024 1:41 AM SITE SAFETY REPRESENTATIVE LIPASE STAT 01/15/2024 1:41 AM SITE SAFETY REPRESENTATIVE COMPREHENSIVE METABOLIC PANEL STAT 01/15/2024 1:41 AM SITE SAFETY REPRESENTATIVE EKG 12-LEAD, TRACING ONLY STAT 01/14/2024 10:46 PM SITE SAFETY REPRESENTATIVE ISTAT GASES LACTATE VENOUS POCT STAT 01/10/2024 1:57 AM SITE SAFETY REPRESENTATIVE CBC WITH PLATELETS & DIFFERENTIAL STAT 01/10/2024 1:54 AM SITE SAFETY REPRESENTATIVE BLOOD CULTURE STAT 01/10/2024 1:54 AM SITE SAFETY REPRESENTATIVE BLOOD CULTURE STAT 01/10/2024 1:54 AM SITE SAFETY REPRESENTATIVE CBC WITH PLATELETS AND DIFFERENTIAL STAT 01/10/2024 1:54 AM SITE SAFETY REPRESENTATIVE COMPREHENSIVE METABOLIC PANEL STAT 01/10/2024 1:54 AM SITE SAFETY REPRESENTATIVE VERIGENE GP PANEL STAT 01/08/2024 9:0 0 AM SITE SAFETY REPRESENTATIVE BLOOD CULTURE STAT 01/08/2024 9:00 AM SITE SAFETY REPRESENTATIVE BLOOD CULTURE STAT 01/08/2024 6:57 AM SITE SAFETY REPRESENTATIVE URINE CULTURE STAT 01/08/2024 6:34 AM SITE SAFETY REPRESENTATIVE ROUTINE UA WITH MICROSCOPIC REFLEX TO CULTURE STAT 01/08/2024 6:34 AM SITE SAFETY REPRESENTATIVE CBC WITH PLATELETS & DIFFERENTIAL STAT 01/08/2024 4:27 AM SITE SAFETY REPRESENTATIVE CBC WITH PLATELETS AND DIFFERENTIAL STAT 01/08/2024 4:27 AM SITE SAFETY REPRESENTATIVE LIPASE STAT 01/08/2024 4:27 AM SITE SAFETY REPRESENTATIVE TROPONIN T, HIGH SENSITIVITY STAT 01/08/2024 4:27 AM SITE SAFETY REPRESENTATIVE COMPREHENSIVE METABOLIC PANEL STAT 01/08/2024 4:27 AM SITE SAFETY REPRESENTATIVE EKG 12-LEAD, TRACING ONLY STAT 01/08/2024 12:16 AM SITE SAFETY REPRESENTATIVE ROUTINE UA WITH MICROSCOPIC REFLEX TO CULTURE STAT 01/05/2024 11:55 AM SITE SAFETY REPRESENTATIVE AST STAT 01/05/2024 10:42 [address]ETY REPRESENTATIVE CT ABDOMEN PELVIS W/O CONTRAST STAT 01/05/2024 10:06 AM SITE SAFETY REPRESENTATIVE CT HEAD W/O CONTRAST STAT 01/05/2024 10:05 AM SITE SAFETY REPRESENTATIVE XR KNEE RIGHT 3 VIEWS STAT 01/05/2024 4:41 AM SITE SAFETY REPRESENTATIVE CBC WITH PLATELETS & DIFFERENTIAL STAT 01/05/2024 3:49 AM SITE SAFETY REPRESENTATIVE CBC WITH PLATELETS AND DIFFERENTIAL STAT 01/05/2024 3:49 AM SITE SAFETY REPRESENTATIVE HCG QUALITATIVE STAT 01/05/2024 3:49 AM SITE SAFETY REPRESENTATIVE LIPASE STAT 01/05/2024 3:49 AM SITE SAFETY REPRESENTATIVE COMPREHENSIVE METABOLIC PANEL STAT 01/05/2024 3:49 AM SITE SAFETY REPRESENTATIVE EKG 12-LEAD, TRACING ONLY STAT 01/04/2024 9:54 PM SITE SAFETY REPRESENTATIVE CT CHEST PULMONARY EMBOLISM W CONTRAST STAT 01/01/2024 7:04 PM SITE SAFETY REPRESENTATIVE EKG 12-LEAD, TRACING ONLY STAT 01/01/2024 4:46 PM SITE SAFETY REPRESENTATIVE CBC WITH PLATELETS & DIFFERENTIAL STAT 01/01/2024 4:40 PM SITE SAFETY REPRESENTATIVE CBC WITH PLATELETS AND DIFFERENTIAL STAT 01/01/2024 4:40 PM SITE SAFETY REPRESENTATIVE NT PROBNP INPATIENT STAT 01/01/2024 4 :40 PM SITE SAFETY REPRESENTATIVE MAGNESIUM STAT 01/01/2024 4:40 PM SITE SAFETY REPRESENTATIVE TROPONIN T, HIGH SENSITIVITY STAT 01/01/2024 4:40 PM SITE SAFETY REPRESENTATIVE BASIC METABOLIC PANEL STAT 01/01/2024 4:40 PM SITE SAFETY REPRESENTATIVE PARTIAL THROMBOPLASTIN TIME STAT 01/01/2024 4:40 PM SITE SAFETY REPRESENTATIVE INR STAT 01/01/2024 4:40 PM SITE SAFETY REPRESENTATIVE URINE DRUG SCREEN STAT 05/05/2023 1:4 4 PM CDT LIPID REFLEX TO DIRECT LDL PANEL Routine 01/01/2023 11:43 AM SITE SAFETY REPRESENTATIVE Routine general medical examination at a [facility] [facility] [place] DIAGNOSTIC BILATERAL W/ AARON Routine 09/02/2018 8:20 AM CDT Lump or mass in breast ACUTE HEPATITIS PANEL Routine 02/13/2016 10:56 AM CDT HIV 1 AND 2 ANTIBODY ([facility]) STAT 11/24/2012 5:50 PM SITE SAFETY REPRESENTATIVE HCL PAP THIN LAYER DIAGNOSTIC Routine 05/13/2009 12:00 AM CDT Pap Smear Vagina w LGSIL from Last 3 Months or Most Recently Relevant to Health Maintenance Results * (ABNORMAL) CBC with platelets and differential (03/24/2024 8:27 PM CDT) Only the most recent of14 resultswithin the time period is included. WBC Count 8.2 4.0 - 11.0 10e3/uL 03/24/2024 8:38 PM CDT [facility] RBC Count 3.59(L) 3.80 - 5.20 10e6/uL 03/24/2024 8:38 PM CDT [facility] Hemoglobin 10.1(L) 11.7 - 15.7 g/dL 03/24/2024 8:38 PM CDT [facility] Hematocrit 31.7(L) 35.0 - 47.0 % 03/24/2024 8:38 PM CDT [facility] MCV 88 78 - 100 fL 03/24/2024 8:38 PM CDT [facility] MCH 28.1 26.5 - 33.0 pg 03/24/2024 8:38 PM CDT [facility] MCHC 31.9 31.5 - 36.5 g/dL 03/24/2024 8:38 PM CDT [facility] RDW 16.0(H) 10.0 - 15.0 % 03/24/2024 8:38 PM CDT [facility] Platelet Count 376 150 - 450 10e3/uL 03/24/2024 8:38 PM CDT [facility] % Neutrophils 74 % 03/24/2024 8:38 PM CDT [facility] % Lymphocytes 18 % 03/24/2024 8:38 PM CDT [facility] % Monocytes 8 % 03/24/2024 8:38 PM CDT [facility] % Eosinophils 0 % 03/24/2024 8:38 PM CDT [facility] % Basophils 0 % 03/24/2024 8:38 PM CDT [facility] % Immature Granulocytes 0 % 03/24/2024 8:38 PM CDT [facility] NRBCs per 100 WBC 0 <1 /100 024 8:38 PM CDT [facility] Absolute Neutrophils 6.0 1.6 - 8.3 10e3/uL 03/24/2024 8:38 PM CDT [facility] Absolute Lymphocytes 1.5 0.8 - 5.3 10e3/uL 03/24/2024 8:38 PM CDT [facility] Absolute Monocytes 0.7 0.0 - 1.3 10e3/uL 03/24/2024 8:38 PM CDT [facility] Absolute Eosinophils 0.0 0.0 - 0.7 10e3/uL 03/24/2024 8:38 PM CDT [facility] Absolute Basophils 0.0 0.0 - 0.2 10e3/uL 03/24/2024 8:38 PM CDT [facility] Absolute Immature Granulocytes 0.0 <=0.4 10e3/uL 03/24/2024 8:38 PM CDT [facility] Absolute NRBCs 0.0 10e3/uL 03/24/2024 8:38 PM CDT [facility] Blood BLOOD SPECIMEN / Unknown Venipuncture / Unknown 03/24/2024 8:27 PM CDT 03/24/2024 8:33 PM CDT Emily Romo MD LAB - BLOOD ORDERABL ES [facility] [address] Lab (1st floor, no room number) [place] [address], [facility] * (ABNORMAL) Erythrocyte sedimentation rate auto (03/24/2024 8:27 PM CDT) Only the most recent of4 resultswithin the time period is included. Erythrocyte Sedimentation Rate 45(H) 0 - 20 mm/hr 03/24/2024 8:46 PM CDT [facility] Blood BLOOD SPECIMEN / Unknown Venipuncture / Unknown 03/24/2024 8:27 PM CDT 03/24/2024 8:33 PM CDT Emily Romo MD LAB - BLOOD ORDERABL ES Performing Organization Address City/[facility]/ZIP Co de Phone Number [facility] [address] Lab (1st floor, no room number) [place] [phone] [place] [address] * (ABNORMAL) CRP inflammation (03/24/2024 8:27 PM CDT) Only the most recent of4 resultswithin the time period is included. CRP Inflammation 33.81(H) <5.00 mg/L 03/24/2024 9:21 PM CDT [facility] Blood BLOOD SPECIMEN / Unknown Venipuncture / Unknown 03/24/2024 8:27 PM CDT 03/24/2024 8:33 PM CDT Emily Romo MD LAB - BLOOD ORDERABL ES Performing Organization Address [facility] [place]/[facility]/[place] Co de Phone Number [facility] [address] Lab (1st floor, no room number) [place] [phone] [place] [address] * (ABNORMAL) Basic metabolic panel (BMP) (03/24/2024 8:27 PM CDT) Only the most recent of13 resultswithin the time period is included. Sodium 133(L) 135 - 145 mmol/L 03/24/2024 9:21 PM CDT [facility] Comment:Reference intervals for this test were updated on 08/24/2023 to more accurately reflect our healthy population. There may be differences in the flagging of prior results with similar values performed with this method. Interpretation of those prior results can be made in the context of the updated reference intervals. Potassium 4.3 3.4 - 5.3 mmol/L 03/24/2024 9:21 PM CDT [facility] Chloride 97(L) 98 - 107 mmol/L 03/24/2024 9:21 PM CDT [facility] Carbon Dioxide (CO2) 20(L) 22 - 29 mmol/L 03/24/2024 9:21 PM CDT [facility] Anion Gap 16(H) 7 - 15 mmol/L 03/24/2024 9:21 PM CDT [facility] Urea Nitrogen 5.9(L) 6.0 - 20.0 mg/dL 03/24/2024 9:21 PM CDT [facility] Creatinine 0.68 0.51 - 0.95 mg/dL 03/24/2024 9:21 PM CDT [facility] GFR Estimate >90 >60 mL/min/1. 73m2 03/24/2024 9:21 PM CDT LABORATORY Calcium 8.8 8.6 - 10.0 mg/dL 03/24/2024 9:21 PM CDT LABORATORY Glucose 107(H) 70 - 99 mg/dL 03/24/2024 9:21 PM CDT LABORATORY Blood BLOOD SPECIMEN / Unknown Venipuncture / Unknown 03/24/2024 8:27 PM CDT 03/24/2024 8:33 PM CDT Emily Romo MD LAB - BLOOD ORDERABL ES LABORATORY [facility] [address] Lab (1st floor, no room number) [place] [address] * Asymptomatic Influenza A/B, RSV, & SARS-CoV2 PCR (COVID-19) Nasopharyngeal (03/24/2024 7:14 PM CDT) Only the most recent of3 resultswithin the time period is included. Influenza A PCR Negative Negative 03/24/2024 8:14 PM CDT LABORATORY Influenza B PCR Negative Negative 03/24/2024 8:14 PM CDT LABORATORY RSV PCR Negative Negative 03/24/2024 8:14 PM CDT LABORATORY SARS CoV2 PCR Negative Negative 03/24/2024 8:14 PM CDT [facility] Comment:NEGATIVE: SARS-CoV-2 (COVID-19) RNA not detected, presumed negative. Swab NASOPHARYNGEAL STRUCTURE / Unknown Non-blood Collection / Unknown 03/24/2024 7:14 PM CDT 03/24/2024 7:35 PM CDT Narrative LABORATORY - 03/24/2024 8:14 PM CDT Testing was performed using the Xpert Xpress CoV2/Flu/RSV Assay on the [employer] GeneXpert Instrument. This test should be ordered for the detection of SARS-CoV-2, influenza, and RSV viruses in individuals who meet clinical and/or epidemiological criteria. Test performance is unknown in asymptomatic patients. This test is for in vitro diagnostic use under the FDA EUA for laboratories certified under CLIA to perform high or moderate complexity testing. This test has not been FDA cleared or approved. A negative result does not rule out the presence of PCR inhibitors in the specimen or target RNA in concentration below the limit of detection for the assay. If only one viral target is positive but coinfection with multiple targets is suspected, the sample should be re-tested with another FDA cleared, approved, or authorized test, if coinfection would change clinical management. This test was validated by the [facility]. These laboratories are certified under the Clinical Laboratory Improvement Amendments of 1988 (CLIA-88) as qualified to perform high complexity laboratory testing. Emily Romo MD LAB - MICRO GENERAL ORDERABLES LABORATORY [facility] [address] Lab (1st floor, no room number) [place] [address] * IR Port Check Right (03/20/2024 4:49 PM CDT) Anatomical Region Laterality Modality Chest X-Ray Angiograph y 03/20/2024 4:49 PM CDT Impressions 03/20/2024 5:06 PM CDT IMPRESSION: ?? 1. ??Uneventful venous access port placement. This port is power injector compatible. 2. 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 Thrombus within the port reservoir is extremely rare and is felt to be a manufactured defect of the device itself. Narrative 03/20/2024 5:06 PM CDT [facility] LOCATION: [facility] DATE: 03/20/2024 PROCEDURES: 1. PORT DYE STUDY (CARDIOVASCULAR CATHETER CHECK INCLUDING FLUOROSCOPY). 2. REMOVAL OF EXISTING PORT-A-CATH 3. ULTRASOUND GUIDANCE FOR VASCULAR ACCESS. 4. FLUOROSCOPIC GUIDANCE FOR CATHETER PLACEMENT. 5. SUBCUTANEOUS IMPLANTED VENOUS ACCESS PORT PLACEMENT. 6. MODERATE SEDATION INTERVENTIONAL RADIOLOGIST: Seth Santillan MD INDICATION: Patient is a 38-year-old female with a history of a nonfunctional port and osteomyelitis requiring IV antibiotics. The patient presents to Interventional Radiology for evaluation of the indwelling Port-A-Cath with possible revision if necessary. CONSENT: The risks, benefits and alternatives of Port evaluation and possible revision were discussed with the patient ??in detail. All questions were answered. Informed consent was given to proceed with the procedure. MODERATE SEDATION: Versed 4 mg IV; Fentanyl 200 mcg IV. During the time out, immediately prior to the administration of medications, the patient was reassessed for adequacy to receive conscious sedation. ??Under physician supervision, Versed and fentanyl were administered for moderate sedation. Pulse oximetry, heart rate and blood pressure were continuously monitored by an independent trained observer. The physician spent 45 minutes of xtov-se-cnaf sedation time with the patient. CONTRAST: None. ANTIBIOTICS: 2 g of IV Ancef. ADDITIONAL MEDICATIONS: None. FLUOROSCOPIC TIME: 1.3 minutes. RADIATION DOSE: Air Kerma: 18 mGy. COMPLICATIONS: No immediate complications. STERILE BARRIER TECHNIQUE: Maximum sterile barrier technique was used. Cutaneous antisepsis was performed at the operative site with application of 2% chlorhexidine and large sterile drape. Prior to the procedure, the terminal makeup operator and asset protection assistant performed hand hygiene and wore hat, mask, sterile gown, and sterile gloves during the entire procedure. PROCEDURE: After discussing the procedure and risks, informed consent was obtained. The existing Port-A-Cath was sterilely accessed in normal fashion. A single fluoroscopic image was obtained. Utilizing digital subtraction angiography, a port dye study was obtained. The patient's right neck and upper chest were then sterilely prepped in normal sterile fashion. Through a small incision, the port was dissected free of the surrounding tissues, and the port and attached catheter were removed in their entirety. Hemostasis was achieved with manual compression. Permanent ultrasound images were obtained of the right internal jugular vein, documenting patency and compressibility. After local anesthesia, the jugular vein was punctured under direct ultrasound guidance, and a small dilator was placed. A short transverse skin incision was made below the clavicle, and a pocket was created for the port. A skin tunnel was created from the pocket to the vein entry site, and the catheter was pulled through the tunnel. The vein was dilated and the catheter inserted through a peel-away sheath, positioning the tip fluoroscopically mid right atrium. The catheter was cut to an appropriate length. The catheter was then attached to the port itself and the port was placed within the subcutaneous pocket. ??The port was flushed with heparin. The incision was closed with layered absorbable suture and covered with Dermabond. The patient tolerated the procedure, and there were no immediate complications. FINDINGS: Single fluoroscopic spot image of the existing Port-A-Cath demonstrates an intact Port-A-Cath. Port dye study under digital subtraction angiography demonstrates a complete inability to flush the port whatsoever. After removal, the Port-A-Cath and attached catheter was found to be removed in its entirety with no retained fragments. Ultrasound shows an anechoic and compressible jugular vein. A permanent ultrasound image of this was saved. After placement, fluoroscopic spot images show that the tip of the catheter is at the SVC/atriocaval junction. Procedure Note Seth Santillan MD - 03/20/2024 [facility] LOCATION: [facility] DATE: 03/20/2024 PROCEDURES: 1. PORT DYE STUDY (CARDIOVASCULAR CATHETER CHECK INCLUDING FLUOROSCOPY). 2. REMOVAL OF EXISTING PORT-A-CATH 3. ULTRASOUND GUIDANCE FOR VASCULAR ACCESS. 4. FLUOROSCOPIC GUIDANCE FOR CATHETER PLACEMENT. 5. SUBCUTANEOUS IMPLANTED VENOUS ACCESS PORT PLACEMENT. 6. MODERATE SEDATION INTERVENTIONAL RADIOLOGIST: Seth Santillan MD INDICATION: Patient is a 38-year-old female with a history of anonfunctional port and osteomyelitis requiring IV antibiotics. The patientpresents to Interventional Radiology for evaluation of the [id number] with possible revision if necessary. CONSENT: The risks, benefits and alternatives of Port evaluation andpossible revision were discussed with the patient in detail. Allquestions were answered. Informed consent was given to proceed with theprocedure. MODERATE SEDATION: Versed 4 mg IV; Fentanyl 200 mcg IV. During the timeout, immediately prior to the administration of medications, the patientwas reassessed for adequacy to receive conscious sedation. Underphysician supervision, Versed and fentanyl were administered for moderate sedation. Pulse oximetry, heart rate andblood pressure were continuously monitored by an independent trainedobserver. The physician spent 45 minutes of xqud-sj-zdrf sedation timewith the patient. CONTRAST: None. ANTIBIOTICS: 2 g of IV Ancef. ADDITIONAL MEDICATIONS: None. FLUOROSCOPIC TIME: 1.3 minutes. RADIATION DOSE: Air Kerma: 18 mGy. COMPLICATIONS: No immediate complications. STERILE BARRIER TECHNIQUE: Maximum sterile barrier technique was used.Cutaneous antisepsis was performed at the operative site with applicationof 2% chlorhexidine and large sterile drape. Prior to the procedure, theoperator and asset protection assistant performed hand hygiene and wore hat, mask, sterile gown, and sterile gloves duringthe entire procedure. PROCEDURE: After discussing the procedure and risks, informed consent wasobtained. The existing Port-A-Cath was sterilely accessed in normal fashion. Asingle fluoroscopic image was obtained. Utilizing digital subtractionangiography, a port dye study was obtained. The patient's right neck and upper chest were then sterilely prepped innormal sterile fashion. Through a small incision, the port was dissectedfree of the surrounding tissues, and the port and attached catheter wereremoved in their entirety. Hemostasis was achieved with manual compression. Permanent ultrasound images were obtained of the right internal jugularvein, documenting patency and compressibility. After local anesthesia, the jugular vein was punctured under directultrasound guidance, and a small dilator was placed. A short transverseskin incision was made below the clavicle, and a pocket was created forthe port. A skin tunnel was created from the pocket to the vein entry site, and the catheter was pulled through thetunnel. The vein was dilated and the catheter inserted through a peel-awaysheath, positioning the tip fluoroscopically mid right atrium. Thecatheter was cut to an appropriate length. The catheter was then attached to the port itself and the port wasplaced within the subcutaneous pocket. The port was flushed with heparin.The incision was closed with layered absorbable suture and covered withDermabond. The patient tolerated the procedure, and there were no immediate complications. FINDINGS: Single fluoroscopic spot image of the existing Port-A-Cath demonstrates anintact Port-A-Cath. Port dye study under digital subtraction angiography demonstrates acomplete inability to flush the port whatsoever. After removal, the Port-A-Cath and attached catheter was found to beremoved in its entirety with no retained fragments. Ultrasound shows an anechoic and compressible jugular vein. A permanentultrasound image of this was saved. After placement, fluoroscopic spot images show that the tip of thecatheter is at the SVC/atriocaval junction. IMPRESSION: 1. Uneventful venous access port placement. This port is power injectorcompatible. 2. The previously placed port was nonfunctional secondary to chronicthrombus within the port reservoir itself. Thrombus within the portreservoir is extremely rare and is felt to be a manufactured defect of thedevice itself. Donavon Quinones MD IMG IR ORDERABL ES * XR Chest 2 Views (03/19/2024 10:17 AM CDT) Only the most recent of3 resultswithin the time period is included. Anatomical Region Laterality Modality Chest Digital Radiogra phy 03/19/2024 10:1 7 AM CDT Impressions 03/19/2024 10:36 AM CDT IMPRESSION: Cardiac silhouette is within normal limits. Right IJ approach port with distal tip projecting at the right atrium. No focal airspace consolidation. No pleural effusion or pneumothorax. Narrative 03/19/2024 10:36 AM CDT EXAM: XR CHEST 2 VIEWS LOCATION: [facility] DATE: 03/19/2024 INDICATION: evaluate port COMPARISON: 02/17/2024. Procedure Note Ralph Kapoor MD - 03/19/2024 EXAM: XR CHEST 2 VIEWS LOCATION: [facility] DATE: 03/19/2024 INDICATION: evaluate port COMPARISON: 02/17/2024. IMPRESSION: Cardiac silhouette is within normal limits. Right IJ approachport with distal tip projecting at the right atrium. No focal airspaceconsolidation. No pleural effusion or pneumothorax. Luz Cazares DO IMG DIAGNOSTIC IMAGI NG ORDERABLES * IR Bone Biopsy Vertebral (03/15/2024 10:09 AM CDT) Anatomical Region Laterality Modality Bone, SUBRAD MSK PROCEDURE Radio Fluoroscopy 03/15/2024 10:0 9 AM CDT Impressions 03/23/2024 10:19 PM CDT CONCLUSION: 1. ??Technically successful fluoroscopically-guided percutaneous L4-L5 disc aspiration. There is no stacy fluid within the disc space, but the disc space was washed with 0.5 mL preservative-free sterile saline, which was aspirated and sent for Gram stain and culture. Due to the limited fluid sample obtained, a bone biopsy was performed in order to enhance the diagnostic yield of the procedure. 2. ??Technically successful fluoroscopically-guided percutaneous L5 vertebral body bone biopsy, with a large core specimen obtained and sent to microbiology for further analysis. 3. ??See lab results for further details.. CPT codes included for physician reference only: [id number], [id number] Narrative 03/23/2024 10:19 PM CDT [facility] 03/15/2024 10:09 AM CDT 1. FLUOROSCOPICALLY GUIDED PERCUTANEOUS DISC ASPIRATION (L4-L5) 2. FLUOROSCOPICALLY GUIDED PERCUTANEOUS VERTEBRAL BODY BONE BIOPSY (L5) INDICATION: 38-year-old woman with multiple episodes of recurrent bacteremia of unclear source. Low back pain, with MRI suggestive of possible L4-L5 osteomyelitis discitis. Request for disc aspiration and possible bone biopsy for further diagnosis and management. CONSENT: The procedure and its indications, major risks, benefits, and alternatives were discussed. Risks including, but not limited to, pain, hemorrhage, infection, nerve damage, spinal cord damage, cardiac and pulmonary dysfunction related to sedation. The possibility that the procedure may be nondiagnostic was discussed. Understanding was acknowledged, and a signed informed consent was obtained. MODERATE SEDATION: Versed 6 mg. Fentanyl 200 mcg. The procedure was performed with the administration of intravenous conscious sedation with appropriate preoperative, intraoperative, and postoperative evaluation. 13 minutes of supervised face to face conscious sedation time was provided by a radiology nurse under my direct supervision. During the time-out, immediately prior to administration of medications, the patient was re-assessed for adequacy to receive conscious sedation. MEDICATIONS: Versed 6 mg IV Fentanyl 200 mcg IV FLUOROSCOPIC TIME: 2.7 minutes DOSE: Air Kerma: 177.22 mGy ESTIMATED BLOOD LOSS: Minimal PERFORMING PHYSICIAN(S): Huan Wallis M.D. [facility] PROCEDURE: The patient was placed in prone position upon the fluoroscopic table. The skin of the back was prepped and draped in sterile fashion. Comparing with the lumbar spine MRI scan, the L4-L5 level was fluoroscopically localized. Note that there is transitional lumbosacral anatomy, with a partially lumbarized S1 segment. The skin over the left aspect of the L4-L5 disc space trajectory was infiltrated with 1% lidocaine. A 6 inch 20-gauge needle was then advanced into the disc space under fluoroscopic guidance. There was no stacy fluid within the disc space at multiple locations. The disc space was washed with 0.5 mL of preservative-free sterile saline, and washings aspirated and sent for Gram stain and culture. The needle was then removed. Due to the limited fluid sample obtained, we next proceeded with a bone biopsy to enhance the diagnostic yield of the procedure. The L5 level (fifth nonrib-bearing vertebra) was fluoroscopically localized. The skin over the left pedicle was infiltrated with 1% lidocaine down to the level of the bone. A small skin eneida was made over the pedicle through which a [place] introducer device was advanced until its tip was present within the posterior aspect of the vertebral body. Using fluoroscopic guidance, a 10-gauge biopsy needle was advanced to the region of the lesion. A single pass was made, obtaining a large core specimen, which was placed in a sterile container. The instrumentation was then removed. Manual compression was applied to the back until hemostasis was achieved. A dressing was applied. The procedure appeared well-tolerated. There was no apparent complication. Procedure Note Huan Wallis MD - 03/23/2024 [facility] 03/15/2024 10:09 AM CDT 1. FLUOROSCOPICALLY GUIDED PERCUTANEOUS DISC ASPIRATION (L4-L5) 2. FLUOROSCOPICALLY GUIDED PERCUTANEOUS VERTEBRAL BODY BONE BIOPSY (L5) INDICATION: 38-year-old woman with multiple episodes of recurrentbacteremia of unclear source. Low back pain, with MRI suggestive ofpossible L4-L5 osteomyelitis discitis. Request for disc aspiration andpossible bone biopsy for further diagnosis and management. CONSENT: The procedure and its indications, major risks, benefits, andalternatives were discussed. Risks including, but not limited to, pain,hemorrhage, infection, nerve damage, spinal cord damage, cardiac andpulmonary dysfunction related to sedation. The possibility that the procedure may be nondiagnostic was discussed.Understanding was acknowledged, and a signed informed consent wasobtained. MODERATE SEDATION: Versed 6 mg. Fentanyl 200 mcg. The procedure wasperformed with the administration of intravenous conscious sedation withappropriate preoperative, intraoperative, and postoperative evaluation. 13minutes of supervised face to face conscious sedation time was provided by a radiology nurse under my directsupervision. During the time-out, immediately prior to administration ofmedications, the patient was re-assessed for adequacy to receive conscioussedation. MEDICATIONS: Versed 6 mg IV Fentanyl 200 mcg IV FLUOROSCOPIC TIME: 2.7 minutes DOSE: Air Kerma: 177.22 mGy ESTIMATED BLOOD LOSS: Minimal PERFORMING PHYSICIAN(S): Huan Wallis M.D. [facility] PROCEDURE: The patient was placed in prone position upon the fluoroscopictable. The skin of the back was prepped and draped in sterile fashion.Comparing with the lumbar spine MRI scan, the L4-L5 level wasfluoroscopically localized. Note that there is transitional lumbosacral anatomy, with a partially lumbarized S1 segment.The skin over the left aspect of the L4-L5 disc space trajectory wasinfiltrated with 1% lidocaine. A 6 inch 20-gauge needle was then advancedinto the disc space under fluoroscopic guidance. There was no stacy fluid within the disc space atmultiple locations. The disc space was washed with 0.5 mL ofpreservative-free sterile saline, and washings aspirated and sent for Gramstain and culture. The needle was then removed. Due to the limited fluid sample obtained, we next proceeded witha bone biopsy to enhance the diagnostic yield of the procedure. The L5 level (fifth nonrib-bearing vertebra) was fluoroscopicallylocalized. The skin over the left pedicle was infiltrated with 1%lidocaine down to the level of the bone. A small skin eneida was made overthe pedicle through which a SubHub introducer device was advanced until its tip was present within the posterior aspectof the vertebral body. Using fluoroscopic guidance, a 10-gauge biopsyneedle was advanced to the region of the lesion. A single pass was made,obtaining a large core specimen, which was placed in a sterile container. The instrumentation was thenremoved. Manual compression was applied to the back until hemostasis wasachieved. A dressing was applied. The procedure appeared well-tolerated. There wasno apparent complication. CONCLUSION: 1. Technically successful fluoroscopically-guided percutaneous L4-L5 discaspiration. There is no stacy fluid within the disc space, but the discspace was washed with 0.5 mL preservative-free sterile saline, which wasaspirated and sent for Gram stain and culture. Due to the limited fluid sample obtained, a bone biopsy wasperformed in order to enhance the diagnostic yield of the procedure. 2. Technically successful fluoroscopically-guided percutaneous Z1noggwadtm body bone biopsy, with a large core specimen obtained and sentto microbiology for further analysis. 3. See lab results for further details.. CPT codes included for physician reference only: [id number] Yin Wolf APRN FOOT MITER OPERATOR IMG IR ORDERABL ES * Tissue Aerobic Bacterial Culture Routine With Gram Stain (03/15/2024 9:58 AM CDT) Only the most recent of2 resultswithin the time period is included. Culture No Growth [place] 03/20/2024 7:21 AM CDT [facility] Gram Stain Result No organisms seen 03/20/2024 7:21 AM CDT [facility] Gram Stain Result 3+ WBC seen 03/20/2024 7:21 AM CDT [facility] Comment:Predominantly PMNs Tissue STRUCTURE OF INTERVERTEBRAL DISC / Unknown Non-blood Collection / Unknown 03/15/2024 9:58 AM CDT 03/15/2024 10:10 AM CDT Gauri Romo NP LAB - MICRO GENERA L ORDERABLES [facility] Inf. Diseases Diag. Lab [address] [facility], [address] [place] [phone] * Anaerobic bacterial culture (03/15/2024 9:57 AM CDT) Only the most recent of2 resultswithin the time period is included. Culture No anaerobic organisms isolated [place] 03/22/2024 8:20 AM CDT IDD LABORATORY Tissue STRUCTURE OF INTERVERTEBRAL DISC / Unknown Non-blood Collection / Unknown 03/15/2024 9:57 AM CDT 03/15/2024 10:10 AM CDT Gauri Romo NP LAB - MICRO GENERA L ORDERABLES [facility] Inf. Diseases Diag. Lab [address] [facility], [address] [phone] * INR (03/15/2024 8:49 AM CDT) Only the most recent of2 resultswithin the time period is included. INR 1.02 0.85 - 1.15 03/15/2024 9:09 AM CDT LABORATORY Blood STRUCTURE OF RIGHT UPPER LIMB / Unknown Venipuncture / Unknown 03/15/2024 8:49 AM CDT 03/15/2024 8:56 AM CDT Gauri Romo NP LAB - BLOOD ORDERA BLES LABORATORY [facility] [address] 1st floor, [address] [place] [address], [facility] * Partial thromboplastin time (03/15/2024 8:49 AM CDT) Only the most recent of2 resultswithin the time period is included. aPTT 36 22 - 38 Seconds 03/15/2024 9:09 AM CDT LABORATORY Blood STRUCTURE OF RIGHT UPPER LIMB / Unknown Venipuncture / Unknown 03/15/2024 8:49 AM CDT 03/15/2024 8:56 AM CDT Gauri Romo NP LAB - BLOOD ORDERA BLES SH LABORATORY [facility] [address] 1[address] floor, [address] [place] [address], [facility] * (ABNORMAL) CBC with platelets (03/13/2024 1:13 PM CDT) Only the most recent of4 resultswithin the time period is included. WBC Count 7.1 4.0 - 11.0 10e3/uL 03/13/2024 1:41 PM CDT [facility] RBC Count 3.63(L) 3.80 - 5.20 10e6/uL 03/13/2024 1:41 PM CDT [facility] Hemoglobin 10.6(L) 11.7 - 15.7 g/dL 03/13/2024 1:41 PM CDT [facility] Hematocrit 32.8(L) 35.0 - 47.0 % 03/13/2024 1:41 PM CDT [facility] MCV 90 78 - 100 fL 03/13/2024 1:41 PM CDT [facility] MCH 29.2 26.5 - 33.0 pg 03/13/2024 1:41 PM CDT [facility] MCHC 32.3 31.5 - 36.5 g/dL 03/13/2024 1:41 PM CDT [facility] RDW 17.1(H) 10.0 - 15.0 % 03/13/2024 1:41 PM CDT [facility] Platelet Count 311 150 - 450 10e3/uL 03/13/2024 1:41 PM CDT [facility] Blood BLOOD SPECIMEN / Unknown IVAD (Port) / Unknown 03/13/2024 1:13 PM CDT 03/13/2024 1:38 PM CDT Masood Amato MD LAB - BLOOD ORDERABL ES [facility] LABORATORY [facility] [address] Lab (1st floor, no room number) [place] [address] * CT Abdomen Pelvis w/o Contrast (03/11/2024 1:00 PM CDT) Only the most recent of2 resultswithin the time period is included. Anatomical Region Laterality Modality Abdomen/Pelvis, SUBRAD CT ESSIE DY, UMP CT ABDOMEN PELVIS, RAD CT Computed Tomography 03/11/2024 1:00 PM CDT Impressions 03/11/2024 8:35 PM CDT IMPRESSION: 1. ??No inflammatory changes seen within the abdomen or pelvis. 2. ??Prior cholecystectomy and hysterectomy. Narrative 03/11/2024 8:35 PM CDT EXAM: CT ABDOMEN PELVIS W/O CONTRAST LOCATION: [facility] DATE: 03/11/2024 INDICATION: Bacteremia, assess for focus of infection. COMPARISON: CT 01/29/2024. TECHNIQUE: CT scan of the abdomen and pelvis was performed without IV contrast. Multiplanar reformats were obtained. Dose reduction techniques were used. CONTRAST: None. FINDINGS: LOWER CHEST: Focal area of scarring in the right lung base laterally. HEPATOBILIARY: Cholecystectomy. Noncontrast images of the liver are unremarkable. PANCREAS: Normal. SPLEEN: Normal. ADRENAL GLANDS: Normal. KIDNEYS/BLADDER: No renal or ureteral calculi. No hydronephrosis. The urinary bladder is grossly unremarkable. BOWEL: No evidence for bowel obstruction or inflammatory change. LYMPH NODES: Normal. VASCULATURE: Normal. PELVIC ORGANS: Prior hysterectomy. No adnexal lesions or free fluid. MUSCULOSKELETAL: Normal. Procedure Note Manpreet Delacruz MD - 03/11/2024 EXAM: CT ABDOMEN PELVIS W/O CONTRAST LOCATION: [facility] DATE: 03/11/2024 INDICATION: Bacteremia, assess for focus of infection. COMPARISON: CT 01/29/2024. TECHNIQUE: CT scan of the abdomen and pelvis was performed without IVcontrast. Multiplanar reformats were obtained. Dose reduction techniqueswere used. CONTRAST: None. FINDINGS: LOWER CHEST: Focal area of scarring in the right lung base laterally. HEPATOBILIARY: Cholecystectomy. Noncontrast images of the liver areunremarkable. PANCREAS: Normal. SPLEEN: Normal. ADRENAL GLANDS: Normal. KIDNEYS/BLADDER: No renal or ureteral calculi. No hydronephrosis. Theurinary bladder is grossly unremarkable. BOWEL: No evidence for bowel obstruction or inflammatory change. LYMPH NODES: Normal. VASCULATURE: Normal. PELVIC ORGANS: Prior hysterectomy. No adnexal lesions or free fluid. MUSCULOSKELETAL: Normal. IMPRESSION: 1. No inflammatory changes seen within the abdomen or pelvis. 2. Prior cholecystectomy and hysterectomy. Waleska Stevenson MD IMG CT ORDERABLES * Lactic Acid STAT (03/10/2024 9:11 AM CDT) Only the most recent of7 resultswithin the time period is included. Lactic Acid 0.7 0.7 - 2.0 mmol/L 03/10/2024 9:37 AM CDT LABORATORY Blood BLOOD SPECIMEN / Unknown IVAD (Port) / Unknown 03/10/2024 9:11 AM CDT 03/10/2024 9:35 AM CDT Masood Amato MD LAB - BLOOD ORDERABL ES LABORATORY [facility] [address] [facility] Lab (1st floor, no room number) [place] [address] * (ABNORMAL) UA with Microscopic reflex to Culture (03/09/2024 9:14 PM CDT) Only the most recent of5 resultswithin the time period is included. Color Urine Light Yellow Colorless, Straw, Light Yellow, Yellow 03/09/2024 9:32 PM CDT LABORATORY Appearance Urine Clear Clear 03/09/20 24 9:32 PM CDT LABORATORY Glucose Urine Negative Negative mg/dL 03/09/2024 9:32 PM CDT LABORATORY Bilirubin Urine Negative Negative 4 9:32 PM CDT LABORATORY Ketones Urine Negative Negative mg/dL 03/09/2024 9:32 PM CDT LABORATORY Specific [place] Urine 1.012 1.003 - 1.035 03/09/2024 9:32 PM CDT LABORATORY Blood Urine Negative Negative 03/09/2024 9:32 PM CDT LABORATORY pH Urine 7.0 5.0 - 7.0 03/09/2024 9:32 PM CDT [facility] Protein Albumin Urine Negative Negative mg/dL 03/09/2024 9:32 PM CDT [facility] Urobilinogen Urine Normal Normal, 2.0 mg/dL 03/09/2024 9:32 PM CDT [facility] Nitrite Urine Negative Negative 03/09/2024 9:32 PM CDT [facility] Leukocyte Esterase Urine Negative Negative 03/09/2024 9:32 PM CDT [facility] Mucus Urine Present(A) None Seen /LPF 03/09/2024 9:32 PM CDT [facility] RBC Urine 1 <=2 /HPF 03/09/2024 9:32 PM CDT [facility] WBC Urine <1 <=5 /HPF 03/09/2024 9:32 PM CDT [facility] Squamous Epithelials Urine 1 <=1 /HPF 03/09/2024 9:32 PM CDT [facility] Urine MID-STREAM URINE SPECIMEN / Unknown Non-blood Collection / Unknown 03/09/2024 9:14 PM CDT 03/09/2024 9:18 PM CDT Narrative [facility] - 03/09/2024 9:32 PM CDT Urine Culture not indicated June Jones MD LAB - URINE ORDERABL ES RH LABORATORY [facility] [address] [facility] Lab (1st floor, no room number) [place] [address], [facility] * Blood Culture Hand, Left (03/09/2024 9:37 AM CDT) Only the most recent of13 resultswithin the time period is included. Culture No Growth 03/14/2024 11:17 AM CDT [facility] Blood STRUCTURE OF LEFT HAND / Unknown Venipuncture / Unknown 03/09/2024 9:37 AM CDT 03/09/2024 9:49 AM CDT Sam Jain DO LAB - MICRO GENERAL ORDERABLES [facility] Inf. Diseases Diag. Lab [address] [facility], [address] [place] [phone] * Prolactin (03/08/2024 5:31 PM CDT) [facility] Prolactin 6 5 - 23 ng/mL 03/09/2024 10:55 AM CDT [facility] Blood (Portacath) IVAD (Port) / Unknown 03/08/2024 5:31 PM CDT 03/08/2024 5:45 PM CDT Carlos Vila MD LAB - BLOOD ORDERA BLES [facility] [place] [facility] [address] [facility], [address] [place] [phone] * (ABNORMAL) Verigene GN Panel (03/08/2024 2:19 PM CDT) [facility] Acinetobacter species Not Detected Not Detected 03/09/2024 6:22 AM CDT [facility] Citrobacter species Not Detected Not Detected 03/09/2024 6:22 AM CDT [facility] Enterobacter species Not Detected Not Detected 03/09/2024 6:22 AM CDT [facility] Proteus species Not Detected Not Detected 03/09/2024 6:22 AM CDT [facility] Escherichia coli Not Detected Not Detected 03/09/2024 6:22 AM CDT [facility] Klebsiella pneumoniae Detected(A) Not Detected 03/09/2024 6:22 AM CDT [facility] Comment:Positive for Klebsie lla pneumoniae by Verigene multiplex nucleic acid test. Final identification and antimicrobial susceptibility testing will be verified by standard methods. Klebsiella oxytoca Not Detected Not Detected 03/09/2024 6:22 AM CDT [facility] Pseudomonas aeruginosa Not Detected Not Detected 03/09/2024 6:22 AM CDT [facility] CTX-M Detected(A) Not Detected, NA 03/09/2024 6:22 AM CDT [facility] Comment:Positive for CTX-M C lass A Extended Spectrum beta-lactamase (ESBL) resistance marker by Verigene multiplex nucleic acid test. CTX-M confers resistance to penicillins, cephalosporins and variable resistance to beta-lactamase inhibitor combinations. Best empiric antibiotic choice is meropenem. Specific susceptibility testing will be performed. KPC Not Detected Not Detected, NA 03/09/2024 6:22 AM CDT [facility] NDM Not Detected Not Detected, NA 03/09/2024 6:22 AM CDT [facility] VIM Not Detected Not Detected, NA 03/09/2024 6:22 AM CDT [facility] IMP Not Detected Not Detected, NA 03/09/2024 6:22 AM CDT [facility] OXA Not Detected Not Detected, NA 03/09/2024 6:22 AM CDT [facility] Blood STRUCTURE OF LEFT HAND / Unknown Venipuncture / Unknown 03/08/2024 2:19 PM CDT 03/08/2024 2:29 PM CDT Narrative [facility] - 03/09/2024 6:22 AM CDT Specimen tested with Verigene multiplex, gram-negative blood culture nucleic acid test for the following targets: Acinetobacter species, Citrobacter species, Enterobacter species, Proteus species, Escherichia coli, Klebsiella pneumoniae, Klebsiella oxytoca, Pseudomonas aeruginosa, and the following resistance markers: CTX-M, KPC, NDM, VIM, IMP and OXA. Carlos Vila MD LAB - MICRO GENERA L ORDERABLES [facility] Inf. Diseases Diag. Lab [address] [facility], [address] [place] [phone] * (ABNORMAL) Hemoglobin (03/06/2024 10:24 PM CDT) Only the most recent of2 resultswithin the time period is included. Hemoglobin 9.4(L) 11.7 - 15.7 g/dL 03/06/2024 10:34 PM CDT [facility] Blood BLOOD SPECIMEN / Unknown IVAD (Port) / Unknown 03/06/2024 10:24 PM CDT 03/06/2024 10:31 PM CDT Nazario Giragn Oljira MD LAB - BLOOD ORD RAYRAY LABORATORY [facility] [address] [facility] Lab (1st floor, no room number) [place] [phone] [address] * Adult Type and Screen (03/06/2024 4:49 PM CDT) ABO/RH(D) O POS 03/06/2024 6:00 AM CDT RH BLOOD BANK Antibody Screen Negative Negative 03/06/2024 6:00 AM CDT RH BLOOD BANK SPECIMEN EXPIRATION DATE [id number] 03/06/2024 6:00 AM CDT RH BLOOD BANK Blood STRUCTURE OF LEFT UPPER LIMB / Unknown Venipuncture / Unknown 03/06/2024 4:49 PM CDT 03/06/2024 5:02 PM CDT Ady Thurston MD LAB - BLOOD BANK TEST ORDER Performing Organization Address [facility]/ZIP Co de Phone Number BLOOD BANK [address] [place] [phone] [address] * Magnesium (03/06/2024 4:49 PM CDT) Only the most recent of3 resultswithin the time period is included. Magnesium 1.7 1.7 - 2.3 mg/dL 03/06/2024 5:25 PM CDT [facility] Blood STRUCTURE OF LEFT UPPER LIMB / Unknown Venipuncture / Unknown 03/06/2024 4:49 PM CDT 03/06/2024 5:02 PM CDT Ady Thurston MD LAB - BLOOD ORDOctavio LINO LABORATORY [facility] [address] [facility] Lab (1st floor, no room number) [place] [phone] [address] * Stool: occult blood (03/05/2024 10:14 PM CDT) Occult Blood Negative Negative [place] 03/05/2024 10:26 PM CDT [facility] Stool RECTAL CONTENTS / Unknown Non-blood Collection / Unknown 03/05/2024 10:14 PM CDT 03/05/2024 10:21 PM CDT Verito Martínez PA-C LAB - STOOLS ORDERAB LES LABORATORY [facility] [address] Lab (1st floor, no room number) [place] [phone] * (ABNORMAL) Hepatic panel (03/05/2024 9:48 PM CDT) Pathologist [facility] Protein Total 7.3 6.4 - 8.3 g/dL 03/06/2024 2:49 PM CDT [facility] Albumin 3.9 3.5 - 5.2 g/dL 03/06/2024 2:49 PM CDT [facility]ORY Bilirubin Total 0.2 <=1.2 mg/dL 03/06/2024 2:49 PM CDT [facility] Alkaline Phosphatase 348(H) 40 - 150 U/L 03/06/2024 2:49 PM CDT [facility] Comment:Reference intervals for this test were updated on 10/12/2023 to more accurately reflect our healthy population. There may be differences in the flagging of prior results with similar values performed with this method. Interpretation of those prior results can be made in the context of the updated reference intervals. AST 46(H) 0 - 45 U/L 03/06/2024 2:49 PM CDT [facility] Comment:Reference intervals for this test were updated on 05/10/2023 to more accurately reflect our healthy population. There may be differences in the flagging of prior results with similar values performed with this method. Interpretation of those prior results can be made in the context of the updated reference intervals. ALT 98(H) 0 - 50 U/L 03/06/2024 2:49 PM CDT [facility] Comment:Reference intervals for this test were updated on 05/10/2023 to more accurately reflect our healthy population. There may be differences in the flagging of prior results with similar values performed with this method. Interpretation of those prior results can be made in the context of the updated reference intervals. Bilirubin Direct <0.20 0.00 - 0.30 mg/dL 03/06/2024 2:49 PM CDT [facility] Blood STRUCTURE OF RIGHT UPPER LIMB / Unknown Venipuncture / Unknown 03/05/2024 9:48 PM CDT 03/05/2024 9:52 PM CDT Carlos Vila MD LAB - BLOOD ORDERA BLES RH LABORATORY [facility] [address] Lab (1st floor, no room number) [place] [address], [facility] * (ABNORMAL) Verigene GP Panel (03/02/2024 9:10 PM CDT) Only the most recent of2 resultswithin the time period is included. Staphylococcus species Not Detected Not Detected 03/03/2024 6:27 PM CDT [facility] Staphylococcus aureus Not Detected Not Detected 03/03/2024 6:27 PM CDT [facility] Staphylococcus epidermidis Not Detected Not Detected 03/03/2024 6:27 PM CDT [facility] Staphylococcus lugdunensis Not Detected Not Detected 03/03/2024 6:27 PM CDT [facility] Enterococcus faecalis Not Detected Not Detected 03/03/2024 6:27 PM CDT [facility] Enterococcus faecium Not Detected Not Detected 03/03/2024 6:27 PM CDT [facility] Streptococcus species Detected(A) Not Detected 03/03/2024 6:27 PM CDT [facility] Comment:Positive for Strepto coccus species other than Streptococcus pneumococcus, Streptococcus anginosus group, Streptococcus pyogenes and Streptococcus agalactiae. Performed using Karmarama multiplex nucleic acid test. Final identification and antimicrobial susceptibility testing will be verified by standard methods. Streptococcus agalactiae Not Detected Not Detected 03/03/2024 6:27 PM CDT [facility] Streptococcus anginosus group Not Detected Not Detected 03/03/2024 6:27 PM CDT [facility] Streptococcus pneumoniae Not Detected Not Detected 03/03/2024 6:27 PM CDT [facility] Streptococcus pyogenes Not Detected Not Detected 03/03/2024 6:27 PM CDT [facility] Listeria species Not Detected Not Detected 03/03/2024 6:27 PM CDT [facility] Blood STRUCTURE OF LEFT UPPER LIMB / Unknown Venipuncture / Unknown 03/02/2024 9:10 PM CDT 03/02/2024 9:13 PM CDT Narrative [facility] - 03/03/2024 6:27 PM CDT Specimen tested with Tastemadeigene multiplex, gram-positive blood culture nucleic acid test for the following targets: Staphylococcus aureus, Staphylococcus epidermidis, Staphylococcus lugdunensis, other Staphylococcus species, Enterococcus faecalis, Enterococcus faecium, Streptococcus species, Streptococcus agalactiae, Streptococcus anginosus group, Streptococcus pneumoniae, Streptococcus pyogenes, Listeria species, mecA (methicillin resistance), and Ambrosio/vanB (vancomycin resistance). Kingsley Hartman MD LAB - MICRO GENE RAL ORDERABLES [facility] Inf. Diseases Diag. Lab [address] [facility], [address] [place] [phone] * MR Lumbar Spine w/o & w Contrast (03/02/2024 7:24 PM CDT) Anatomical Region Laterality Modality Spine, SUBRAD MR NEURO, UMP MR SPINE, RAD MR Magnetic Resonance 03/02/2024 7:24 PM CDT Impressions 03/02/2024 7:36 PM CDT IMPRESSION: 1. ??Multilevel lumbar spondylosis without high-grade spinal canal or neural foraminal stenosis. 2. ??Opposing endplate edema and associated enhancement at L4-L5. No abnormal enhancement in the intervertebral disc. No abnormal signal in the paraspinous soft tissues. This is favored to represent degenerative Modic type I change. Discitis osteomyelitis is not very likely given absence of disc enhancement and absence of paraspinous inflammatory/findings. If there is suspicion for discitis osteomyelitis, recommend follow-up imaging. Narrative 03/02/2024 7:36 PM CDT EXAM: MR LUMBAR SPINE W/O and W CONTRAST LOCATION: [facility] DATE: 03/02/2024 INDICATION: low back pain and patient reporting saddle anesthesia COMPARISON: Plain radiographs 12/19/2023. CONTRAST: 9ML LEONARDA TECHNIQUE: Routine Lumbar Spine MRI without and with IV contrast. FINDINGS: Nomenclature is based on 5 lumbar type vertebral bodies. Normal vertebral body heights and alignment. Mixed Modic type I and type II changes with associated contrast enhancement at the opposing L4-L5 endplates. No abnormal contrast enhancement in the intervertebral disc. Normal distal spinal cord and cauda equina with conus medullaris at T12-L1. No extraspinal abnormality. Unremarkable visualized bony pelvis. T12-L1: Normal disc height and signal. No herniation. Bilateral facet arthropathy. No spinal canal or neural foraminal stenosis. L1-L2: Normal disc height and signal. Mild disc bulge. Bilateral facet arthropathy. Mild bilateral neural foraminal stenosis. No spinal canal stenosis. L2-L3: Normal disc height and signal. Circumferential disc bulge. Bilateral facet arthropathy.. Mild bilateral neural foraminal stenosis. No spinal canal stenosis. L3-L4: Normal disc height and signal. Mild disc bulge. Bilateral facet arthropathy. Mild bilateral neural foraminal stenosis. No spinal canal stenosis. L4-L5: Moderate disc height loss and disc degeneration. Disc bulge osteophyte formation and bilateral facet arthropathy. Mild bilateral neural foraminal stenosis. No spinal canal stenosis. L5-S1: Normal disc height and signal. No herniation. Normal facets. No spinal canal or neural foraminal stenosis. Procedure Note Bhargav Johns MD - 03/02/2024 EXAM: MR LUMBAR SPINE W/O and W CONTRAST LOCATION: [facility] DATE: 03/02/2024 INDICATION: low back pain and patient reporting saddle anesthesia COMPARISON: Plain radiographs 12/19/2023. CONTRAST: 9ML LEONARDA TECHNIQUE: Routine Lumbar Spine MRI without and with IV contrast. FINDINGS: Nomenclature is based on 5 lumbar type vertebral bodies. Normal vertebralbody heights and alignment. Mixed Modic type I and type II changes withassociated contrast enhancement at the opposing L4-L5 endplates. Noabnormal contrast enhancement in the intervertebral disc. Normal distal spinal cord and cauda equina with conusmedullaris at T12-L1. No extraspinal abnormality. Unremarkable visualizedbony pelvis. T12-L1: Normal disc height and signal. No herniation. Bilateral facetarthropathy. No spinal canal or neural foraminal stenosis. L1-L2: Normal disc height and signal. Mild disc bulge. Bilateral facetarthropathy. Mild bilateral neural foraminal stenosis. No spinal canalstenosis. L2-L3: Normal disc height and signal. Circumferential disc bulge.Bilateral facet arthropathy.. Mild bilateral neural foraminal stenosis. Nospinal canal stenosis. L3-L4: Normal disc height and signal. Mild disc bulge. Bilateral facetarthropathy. Mild bilateral neural foraminal stenosis. No spinal canalstenosis. L4-L5: Moderate disc height loss and disc degeneration. Disc bulgeosteophyte formation and bilateral facet arthropathy. Mild bilateralneural foraminal stenosis. No spinal canal stenosis. L5-S1: Normal disc height and signal. No herniation. Normal facets. Nospinal canal or neural foraminal stenosis. IMPRESSION: 1. Multilevel lumbar spondylosis without high-grade spinal canal orneural foraminal stenosis. 2. Opposing endplate edema and associated enhancement at L4-L5. Noabnormal enhancement in the intervertebral disc. No abnormal signal in theparaspinous soft tissues. This is favored to represent degenerative Modictype I change. Discitis osteomyelitis is not very likely given absence of disc enhancement and absence ofparaspinous inflammatory/findings. If there is suspicion for discitisosteomyelitis, recommend follow-up imaging. Janie Arellano MD [facility] [place] ORDERABLES * Extra Purple Top Tube (03/02/2024 1:42 PM CDT) [facility] Hold Specimen [facility] 03/02/2024 2:47 PM CDT LABORATORY Blood BLOOD SPECIMEN / Unknown Venipuncture / Unknown 03/02/2024 1:42 PM CDT 03/02/2024 1:46 PM CDT Janie Arellano MD LAB - BLOOD ORDERABL ES [facility] [address] [facility] Lab (1st floor, no room number) [place] [address], [facility] * Extra Green Top ([place]ott Heparin) Tube (03/02/2024 1:42 PM CDT) Hold Specimen [facility] 03/02/2024 2:47 PM CDT RH LABORATORY Blood BLOOD SPECIMEN / Unknown Venipuncture / Unknown 03/02/2024 1:42 PM CDT 03/02/2024 1:46 PM CDT Janie Arellano MD LAB - BLOOD ORDERABL ES Performing Organization Address City/[facility]/ZIP Co de Phone Number [facility] Lab [address] Lab (1st floor, no room number) [place] [phone] [place] [address] * Extra Red Top Tube (03/02/2024 1:42 PM CDT) Only the most recent of3 resultswithin the time period is included. Hold Specimen [facility] 03/02/2024 2:47 PM CDT RH LABORATORY Blood BLOOD SPECIMEN / Unknown Venipuncture / Unknown 03/02/2024 1:42 PM CDT 03/02/2024 1:46 PM CDT Janie Arellano MD LAB - BLOOD ORDERABL ES Performing Organization Address [facility] [place]/[facility] Co de Phone Number [facility] [address] Lab (1st floor, no room number) [place] [phone] * Extra Blue Top Tube (03/02/2024 1:42 PM CDT) Only the most recent of2 resultswithin the time period is included. Hold Specimen [facility] 03/02/2024 2:47 PM CDT RH LABORATORY Blood BLOOD SPECIMEN / Unknown Venipuncture / Unknown 03/02/2024 1:42 PM CDT 03/02/2024 1:46 PM CDT Janie Arellano MD LAB - BLOOD ORDERABL ES [facility] Lab [address] Lab (1st floor, no room number) [place] [address] * EKG 12-lead, tracing only (02/17/2024 2:24 PM CDT) Only the most recent of11 resultswithin the time period is included. Systolic Blood Pressure mmHg RADIOLOGY RESULTS Diastolic Blood Pressure mmHg RADIOLOGY RESULTS Ventricular Rate 128 BPM RAD IOLOGY RESULTS Atrial Rate 128 BPM RADIOLOG Y RESULTS MA Interval 152 ms RADIOLOG Y RESULTS QRS Duration 68 ms RADIOLO GY RESULTS QT 290 ms RADIOLOGY RESULTS QTc 423 ms RADIOLOGY RESULTS P [place] 54 degrees RADIOLOGY RESULTS R AXIS 8 degrees RADIOLOGY RESULTS T [place] 21 degrees RADIOLOGY RESULTS Interpretation ECG Sinus tachycardia Low voltage QRS Possible Inferior infarct , age undetermined Cannot rule out Anterior infarct (cited on or before 07-FEB-2024) Abnormal ECG When compared with ECG of 17-FEB-2024 01:04, Borderline criteria for Inferior infarct are now Present Unconfirmed report - interpretation of this ECG is computer generated - see medical record for final interpretation Confirmed by - EMERGENCY ROOM, PHYSICIAN ([id number]), international editorial producer IVELISSE RICKETTS ([id number]) on 02/17/2024 2:34:00 PM RADIOLOGY RESULTS 02/17/2024 2:24 PM CDT 02/17/2024 2:34 PM CDT Kingsley Kimble MD ECG ORDER [facility] RADIOLOGY RESULTS * XR Shoulder Right G/E 3 Views (02/17/2024 4:31 AM CDT) Only the most recent of2 resultswithin the time period is included. Anatomical Region Laterality Modality Shoulder, Right Shoulder Right Digital Radiography 02/17/2024 4:31 AM CDT Impressions 02/17/2024 4:42 AM CDT IMPRESSION: No visible fracture or dislocation. Narrative 02/17/2024 4:42 AM CDT EXAM: XR SHOULDER RIGHT G/E 3 VIEWS LOCATION: [facility] DATE: 02/17/2024 INDICATION: pain after a fall COMPARISON: None. Procedure Note Gabriela Coffman MD, MD - 02/17/2024 EXAM: XR SHOULDER RIGHT G/E 3 VIEWS LOCATION: [facility] DATE: 02/17/2024 INDICATION: pain after a fall COMPARISON: None. IMPRESSION: No visible fracture or dislocation. Kingsley Kimble MD [facility] [place] DIAGN OSTIC IMAGING ORDERABLES * XR Hand Port Left G/E 3 Views (02/17/2024 2:48 AM CDT) Anatomical Region Laterality Modality Hand, Left Hand Left Digital Radiogra phy 02/17/2024 2:48 AM CDT Impressions 02/17/2024 2:51 AM CDT IMPRESSION: No visible fracture or dislocation. Narrative 02/17/2024 2:51 AM CDT EXAM: XR HAND PORT LEFT G/E 3 VIEWS LOCATION: [facility] DATE: 02/17/2024 INDICATION: fall, left hand swelling COMPARISON: None. Procedure Note Gabriela Coffman MD, MD - 02/17/2024 EXAM: XR HAND PORT LEFT G/E 3 VIEWS LOCATION: [facility] DATE: 02/17/2024 INDICATION: fall, left hand swelling COMPARISON: None. IMPRESSION: No visible fracture or dislocation. Kingsley Kimble MD [facility] [place] DIAGN OSTIC IMAGING ORDERABLES * Troponin T, High Sensitivity (02/17/2024 1:48 AM CDT) Only the most recent of5 resultswithin the time period is included. Troponin T, High Sensitivity <6 <=14 ng/L 02/17/2024 2:15 AM CDT LABORATORY Comment: Either a High Sensitivity Troponin T baseline (0 hours) value = 100 ng/L, or an increase in High Sensitivity Troponin T = 7 ng/L at 2 hours compared to 0 hours (2-0 hours), suggests myocardial injury, and urgent clinical attention is required. ?? If the 2-0 hours increase is <7 ng/L, a High Sensitivity Troponin T result above gender-specific reference ranges warrants further evaluation. Recommendations for further evaluation include correlation with clinical decision-making tool (e.g., HEART), a 3rd High Sensitivity Troponin T test 2 hours after the 2nd (a 20% change from baseline would represent concern), admission for observation, close PCC/cardiology follow-up, or urgent outpatient provocative testing. Blood VENOUS LINE / Unknown Venipuncture / Unknown 02/17/2024 1:48 AM CDT 02/17/2024 1:54 AM CDT Kingsley Kimble MD LAB - BLO OD ORDERABLES [facility] [address], no room number) [place] [address] * Chest CT w/o contrast (02/07/2024 4:25 AM CDT) Anatomical Region Laterality Modality Chest, SUBRAD CT BODY, UMP CT CHEST, RAD CT Computed Tomography 02/07/2024 4:25 AM CDT Impressions 02/07/2024 4:41 AM CDT IMPRESSION: 1. ??No complications of port placement are evident. No hematoma or fluid collection. 2. ??Few small indeterminant pulmonary nodules without interval change. Recommendations for one or multiple incidental lung nodules < 6mm : ??Low risk patients: No routine follow-up. ??High risk patients: Optional follow-up CT at 12 months; if unchanged, no further follow-up. *Low Risk: Minimal or absent history of smoking or other known risk factors. *Nonsolid (ground glass) or partly solid nodules may require longer follow-up to exclude indolent adenocarcinoma. *Recommendations based on Guidelines for the Management of Incidental Pulmonary Nodules Detected at CT: From the Fleischner Society 2017, Radiology 2017. Narrative 02/07/2024 4:41 AM CDT EXAM: CT CHEST W/O CONTRAST LOCATION: [facility] DATE: 02/07/2024 INDICATION: chest pain after recent port placement COMPARISON: 01/29/2024. TECHNIQUE: CT chest without IV contrast. Multiplanar reformats were obtained. Dose reduction techniques were used. CONTRAST: None. FINDINGS: LUNGS AND PLEURA: Stable 2 mm subpleural nodule in the right upper lobe laterally. 2 subpleural nodules in the left lower lobe laterally measuring up to 3 mm stable. The lungs are otherwise clear. There is no pneumothorax or pleural effusion. MEDIASTINUM/AXILLAE: Right IJ chest wall port has been placed. The tip is at the cavoatrial junction. There is mild edema in the subcutaneous fat around the port. No hematoma or fluid collection. There is no lymph node enlargement. The heart size is normal. CORONARY ARTERY CALCIFICATION: None. UPPER ABDOMEN: The gallbladder is absent. MUSCULOSKELETAL: Unremarkable. Procedure Note StrandSanty MD - 02/07/2024 EXAM: CT CHEST W/O CONTRAST LOCATION: [facility] DATE: 02/07/2024 INDICATION: chest pain after recent port placement COMPARISON: 01/29/2024. TECHNIQUE: CT chest without IV contrast. Multiplanar reformats wereobtained. Dose reduction techniques were used. CONTRAST: None. FINDINGS: LUNGS AND PLEURA: Stable 2 mm subpleural nodule in the right upper lobelaterally. 2 subpleural nodules in the left lower lobe laterally measuringup to 3 mm stable. The lungs are otherwise clear. There is no pneumothoraxor pleural effusion. MEDIASTINUM/AXILLAE: Right IJ chest wall port has been placed. The tip isat the cavoatrial junction. There is mild edema in the subcutaneous fataround the port. No hematoma or fluid collection. There is no lymph nodeenlargement. The heart size is normal. CORONARY ARTERY CALCIFICATION: None. UPPER ABDOMEN: The gallbladder is absent. MUSCULOSKELETAL: Unremarkable. IMPRESSION: 1. No complications of port placement are evident. No hematoma or fluidcollection. 2. Few small indeterminant pulmonary nodules without interval change. Recommendations for one or multiple incidental lung nodules < 6mm : Low risk patients: No routine follow-up. High risk patients: Optional follow-up CT at 12 months; if unchanged, nofurther follow-up. *Low Risk: Minimal or absent history of smoking or other known riskfactors. *Nonsolid (ground glass) or partly solid nodules may require longerfollow-up to exclude indolent adenocarcinoma. *Recommendations based on Guidelines for the Management of IncidentalPulmonary Nodules Detected at CT: From the Fleischner Society 2017,Radiology 2017. Kingsley Kimble MD IMG CT OR DERABLES * CT Head w/o Contrast (02/07/2024 4:22 AM CDT) Only the most recent of3 resultswithin the time period is included. Anatomical Region Laterality Modality Head, SUBRAD CT NEURO, SUBRA D CT NEURO, UMP CT NEURO, RAD CT Computed Tomography 02/07/2024 4:22 AM CDT Impressions 02/07/2024 4:39 AM CDT IMPRESSION: 1. ??No acute intracranial abnormality. Narrative 02/07/2024 4:39 AM CDT EXAM: CT HEAD W/O CONTRAST LOCATION: [facility] DATE: 02/07/2024 INDICATION: head trauma after syncope COMPARISON: None. TECHNIQUE: Routine CT Head without IV contrast. Multiplanar reformats. Dose reduction techniques were used. FINDINGS: INTRACRANIAL CONTENTS: No intracranial hemorrhage, extraaxial collection, or mass effect. ??No CT evidence of acute infarct. Normal parenchymal attenuation. Normal ventricles and sulci. Empty sella. This is typically an incidental finding. VISUALIZED ORBITS/SINUSES/MASTOIDS: No intraorbital abnormality. No paranasal sinus mucosal disease. No middle ear or mastoid effusion. BONES/SOFT TISSUES: No acute abnormality. Procedure Note Pratik Ruggiero MD - 02/07/2024 EXAM: CT HEAD W/O CONTRAST LOCATION: [facility] DATE: 02/07/2024 INDICATION: head trauma after syncope COMPARISON: None. TECHNIQUE: Routine CT Head without IV contrast. Multiplanar reformats.Dose reduction techniques were used. FINDINGS: INTRACRANIAL CONTENTS: No intracranial hemorrhage, extraaxial collection,or mass effect. No CT evidence of acute infarct. Normal parenchymalattenuation. Normal ventricles and sulci. Empty sella. This is typicallyan incidental finding. VISUALIZED ORBITS/SINUSES/MASTOIDS: No intraorbital abnormality. Noparanasal sinus mucosal disease. No middle ear or mastoid effusion. BONES/SOFT TISSUES: No acute abnormality. IMPRESSION: 1. No acute intracranial abnormality. Kingsley Kimble MD IMG CT OR DERABLES * IR Chest Port Placement > 5 Yrs of Age (02/04/2024 9:18 AM SITE SAFETY REPRESENTATIVE) Anatomical Region Laterality Modality Chest Radio Fluoroscop y, Radio Fluoroscopy Impressions 02/04/2024 4:51 PM SITE SAFETY REPRESENTATIVE IMPRESSION: Successful placement of right internal jugular 6 Fijian SmartPort and catheter. The port is ready for immediate use. JOSH PRASAD MD Narrative 02/04/2024 4:51 PM SITE SAFETY REPRESENTATIVE PORT PLACEMENT ?? 02/04/2024 9:18 AM INDICATION: ??Chronic intravenous access required for drug infusion. 38-year-old woman with multiple diagnoses and medical and psychiatric history. Request made for long-term IV access for medication and IV hydration. LOCATION: ??Right internal jugular vein. PROCEDURE: Ultrasound was used to localize and document patency of the internal jugular vein. ??A permanent image of the vein was recorded. Local anesthesia was administered to the skin over the vein and a 4 mm incision was made. ??Ultrasound was used to place a 6F peel-away sheath in the vein using standard technique. ?? Maximal Sterile Barrier Technique Utilized: Cap AND mask AND sterile gown AND sterile gloves AND sterile full body drape AND hand hygiene AND skin preparation 2% chlorhexidine for cutaneous antisepsis (or acceptable alternative antiseptics). ??Sterile Ultrasound Technique Utilized ?Sterile gel AND sterile probe covers. Lidocaine was then administered in the subcutaneous tissue over the clavicle to a point about 5 cm below the midclavicle. ??A transverse 2 cm long incision was made at this point. ??Blunt dissection was carried out to create a small subcutaneous pocket cephalad to the incision. The 6F port catheter was brought through the tract between the two incisions and trimmed to appropriate length. ??The catheter was attached to the port and the port was brought into the pocket. ??The pocket was flushed with antibiotic solution. ?? The catheter was then inserted into the superior vena cava through the jugular sheath. ??It was adjusted so that it lay well with no kinking. The port was flushed with heparinized solution. ??The port incision was closed with interrupted 3-0 Vicryl and Dermabond adhesive. ??The neck incision was closed with adhesive. ??Dressings were applied. ?? Complications: ??None. However, patient did not tolerate the procedure well despite large amount of sedation medication. Sedation: ? A moderate level of sedation was achieved with 8 mg midazolam ?175 ??mcg fentanyl Vital signs and sedation monitored by our nursing staff under my supervision. ?? Sedation time: ??20 minutes Fluoroscopy time: ??0.3 minutes Air Kerma: 4 mGy Contrast given: ??None Local anesthetic: ??A total of 20 mL of 1% lidocaine administered. FINDINGS: ??Fluoroscopic guidance with a permanent image confirmed the port catheter tip location is at the right atrial/SVC junction, confirmed a single spot fluoroscopic image. Procedure Note Josh Prasad MD - 02/04/2024 PORT PLACEMENT 02/04/2024 9:18 AM INDICATION: Chronic intravenous access required for drug infusion. 38-year-old woman with multiple diagnoses and medical and psychiatric history. Request made for long-term IV access for medication and IV hydration. LOCATION: Right internal jugular vein. PROCEDURE: Ultrasound was used to localize and document patency of the internal jugular vein. A permanent image of the vein was recorded. Local anesthesia was administered to the skin over the vein and a 4 mm incision was made. Ultrasound was used to place a 6F peel-away sheath in the vein using standard technique. Maximal Sterile Barrier Technique Utilized: Cap AND mask AND sterile gown AND sterile gloves AND sterile full body drape AND hand hygiene AND skin preparation 2% chlorhexidine for cutaneous antisepsis (or acceptable alternative antiseptics). Sterile Ultrasound Technique Utilized ?Sterile gel AND sterile probe covers. Lidocaine was then administered in the subcutaneous tissue over the clavicle to a point about 5 cm below the midclavicle. A transverse 2 cm long incision was made at this point. Blunt dissection was carried out to create a small subcutaneous pocket cephalad to the incision. The 6F port catheter was brought through the tract between the two incisions and trimmed to appropriate length. The catheter was attached to the port and the port was brought into the pocket. The pocket was flushed with antibiotic solution. The catheter was then inserted into the superior vena cava through the jugular sheath. It was adjusted so that it lay well with no kinking. The port was flushed with heparinized solution. The port incision was closed with interrupted 3-0 Vicryl and Dermabond adhesive. The neck incision was closed with adhesive. Dressings were applied. Complications: None. However, patient did not tolerate the procedure well despite large amount of sedation medication. Sedation: A moderate level of sedation was achieved with 8 mg midazolam 175 mcg fentanyl Vital signs and sedation monitored by our nursing staff under my supervision. Sedation time: 20 minutes Fluoroscopy time: 0.3 minutes Air Kerma: 4 mGy Contrast given: None Local anesthetic: A total of 20 mL of 1% lidocaine administered. FINDINGS: Fluoroscopic guidance with a permanent image confirmed the port catheter tip location is at the right atrial/SVC junction, confirmed a single spot fluoroscopic image. IMPRESSION: Successful placement of right internal jugular 6 Fijian SmartPort and catheter. The port is ready for immediate use. JOSH PRASAD MD Segundo Virgen MD IMG IR ORDERABLE S * CT Chest Abdomen Pelvis w/o Contrast (01/29/2024 11:02 PM SITE SAFETY REPRESENTATIVE) Anatomical Region Laterality Modality Abdomen/Pelvis, SUBRAD CT ESSIE DY, UMP CT CHEST, UMP CT ABDOMEN PELVIS, Chest, RAD CT Computed Tomography 01/29/2024 11:0 2 PM SITE SAFETY REPRESENTATIVE Impressions 01/29/2024 11:16 PM SITE SAFETY REPRESENTATIVE IMPRESSION: 1. ??No acute findings in the chest, abdomen and pelvis. 2. ??Scattered 2 to 3 mm pulmonary nodules. Per Fleischner Society 2017 guideline, a one-year follow-up chest CT could be considered if patient is at high risk for lung cancer. Without lung cancer risk factor, no follow-up is necessary. Narrative 01/29/2024 11:16 PM SITE SAFETY REPRESENTATIVE EXAM: CT CHEST ABDOMEN PELVIS W/O CONTRAST LOCATION: [facility] DATE: 01/29/2024 INDICATION: fall, syncope COMPARISON: 01/01/2024 TECHNIQUE: CT scan of the chest, abdomen, and pelvis was performed without IV contrast. Multiplanar reformats were obtained. Dose reduction techniques were used. CONTRAST: None. FINDINGS: LUNGS AND PLEURA: A 2 mm nodule in the posterior right upper lobe on series 4 image 98 is unchanged. A 3 mm left lower lobe nodule on image 152 is stable. A 2 mm peripheral right upper lobe nodule on image 95 is new. No consolidation, pleural effusion or pneumothorax. MEDIASTINUM/AXILLAE: Normal. CORONARY ARTERY CALCIFICATION: None. HEPATOBILIARY: Normal liver. Gallbladder is surgically absent. PANCREAS: Normal. SPLEEN: Normal. ADRENAL GLANDS: Normal. KIDNEYS/BLADDER: Normal. BOWEL: Normal. LYMPH NODES: Normal. VASCULATURE: Unremarkable. PELVIC ORGANS: Status post hysterectomy. No abnormal adnexal masses. MUSCULOSKELETAL: Normal. No acute fracture or suspicious osseous lesions. Procedure Note Genaro Lombardi MD - 01/29/2024 EXAM: CT CHEST ABDOMEN PELVIS W/O CONTRAST LOCATION: [facility] DATE: 01/29/2024 INDICATION: fall, syncope COMPARISON: 01/01/2024 TECHNIQUE: CT scan of the chest, abdomen, and pelvis was performed withoutIV contrast. Multiplanar reformats were obtained. Dose reductiontechniques were used. CONTRAST: None. FINDINGS: LUNGS AND PLEURA: A 2 mm nodule in the posterior right upper lobe onseries 4 image 98 is unchanged. A 3 mm left lower lobe nodule on image 152is stable. A 2 mm peripheral right upper lobe nodule on image 95 is new.No consolidation, pleural effusion or pneumothorax. MEDIASTINUM/AXILLAE: Normal. CORONARY ARTERY CALCIFICATION: None. HEPATOBILIARY: Normal liver. Gallbladder is surgically absent. PANCREAS: Normal. SPLEEN: Normal. ADRENAL GLANDS: Normal. KIDNEYS/BLADDER: Normal. BOWEL: Normal. LYMPH NODES: Normal. VASCULATURE: Unremarkable. PELVIC ORGANS: Status post hysterectomy. No abnormal adnexal masses. MUSCULOSKELETAL: Normal. No acute fracture or suspicious osseouslesions. IMPRESSION: 1. No acute findings in the chest, abdomen and pelvis. 2. Scattered 2 to 3 mm pulmonary nodules. Per Fleischner Society 2017guideline, a one-year follow-up chest CT could be considered if patient isat high risk for lung cancer. Without lung cancer risk factor, nofollow-up is necessary. Renetta Humphries MD IMG CT O RDERABLES * HCG qualitative urine (UPT) (01/29/2024 12:00 AM SITE SAFETY REPRESENTATIVE) hCG Urine Qualitative Negative Negative [place] 01/29/2024 12:23 AM SITE SAFETY REPRESENTATIVE LABORATORY Comment:This test is for scr eening purposes. Results should be interpreted along with the clinical picture. Confirmation testing is available if warranted by ordering [id number], HCG Quantitative . Urine MID-STREAM URINE SPECIMEN / Unknown Non-blood Collection / Unknown 01/29/2024 12:00 AM SITE SAFETY REPRESENTATIVE 01/29/2024 12:15 AM SITE SAFETY REPRESENTATIVE Seth Farias MD LAB - URINE ORDERABL ES LABORATORY [facility] [address] [facility] Lab (1st floor, no room number) [place] [address], [facility] [phone] * Clavicle XR, right (01/19/2024 2:12 AM SITE SAFETY REPRESENTATIVE) Anatomical Region Laterality Modality Upper Extremity Right Digital Radiogra phy 01/19/2024 2:12 AM SITE SAFETY REPRESENTATIVE Impressions 01/19/2024 2:22 AM SITE SAFETY REPRESENTATIVE IMPRESSION: Normal joint spaces and alignment. No fracture or dislocation. Narrative 01/19/2024 2:22 AM SITE SAFETY REPRESENTATIVE EXAM: XR CLAVICLE RIGHT 2 VIEWS, XR SHOULDER RIGHT G/E 3 VIEWS LOCATION: [facility] DATE: 01/19/2024 INDICATION: fall, ??pain COMPARISON: Two-view chest radiograph 12/19/23 Procedure Note Suman Parada MD - 01/19/2024 EXAM: XR CLAVICLE RIGHT 2 VIEWS, XR SHOULDER RIGHT G/E 3 VIEWS LOCATION: [facility] DATE: 01/19/2024 INDICATION: fall, pain COMPARISON: Two-view chest radiograph 12/19/23 IMPRESSION: Normal joint spaces and alignment. No fracture ordislocation. Janie Arellano MD IMG DIAGNOSTIC IMAGI NG ORDERABLES * Lipase (01/15/2024 1:41 AM SITE SAFETY REPRESENTATIVE) Only the most recent of3 resultswithin the time period is included. Lipase 53 13 - 60 U/L 01/15/2024 2:12 AM SITE SAFETY REPRESENTATIVE LABORATORY Blood BLOOD SPECIMEN / Unknown Venipuncture / Unknown 01/15/2024 1:41 AM SITE SAFETY REPRESENTATIVE 01/15/2024 1:45 AM SITE SAFETY REPRESENTATIVE Sam Martini MD LAB - BLOOD ORDERAB LES LABORATORY [facility] [address] 1st floor, [address] [place] [address], [facility] [phone] * (ABNORMAL) Comprehensive metabolic panel (01/15/2024 1:41 AM SITE SAFETY REPRESENTATIVE) Only the most recent of4 resultswithin the time period is included. Sodium 134(L) 135 - 145 mmol/L 01/15/2024 2:12 AM [facility] Comment:Reference intervals for this test were updated on 08/24/2023 to more accurately reflect our healthy population. There may be differences in the flagging of prior results with similar values performed with this method. Interpretation of those prior results can be made in the context of the updated reference intervals. Potassium 4.1 3.4 - 5.3 mmol/L 01/15/2024 2:12 AM [facility] Carbon Dioxide (CO2) 23 22 - 29 mmol/L 01/15/2024 2:12 AM [facility] Anion Gap 13 7 - 15 mmol/L 01/15/2024 2:12 AM [facility] Urea Nitrogen 14.3 6.0 - 20.0 mg/dL 01/15/2024 2:12 AM [facility] Creatinine 0.71 0.51 - 0.95 mg/dL 01/15/2024 2:12 AM [facility] GFR Estimate >90 >60 mL/min/1. 73m2 01/15/2024 2:12 AM [facility] Calcium 9.4 8.6 - 10.0 mg/dL 01/15/2024 2:12 AM [facility] Chloride 98 98 - 107 mmol/L 01/15/2024 2:12 AM [facility] Glucose 91 70 - 99 mg/dL 01/15/2024 2:12 AM [facility] Alkaline Phosphatase 321(H) 40 - 150 U/L 01/15/2024 2:12 AM [facility] Comment:Reference intervals for this test were updated on 10/12/2023 to more accurately reflect our healthy population. There may be differences in the flagging of prior results with similar values performed with this method. Interpretation of those prior results can be made in the context of the updated reference intervals. AST 97(H) 0 - 45 U/L 01/15/2024 2:12 AM [facility] Comment:Reference intervals for this test were updated on 05/10/2023 to more accurately reflect our healthy population. There may be differences in the flagging of prior results with similar values performed with this method. Interpretation of those prior results can be made in the context of the updated reference intervals. ALT 149(H) 0 - 50 U/L 01/15/2024 2:12 AM [facility] Comment:Reference intervals for this test were updated on 05/10/2023 to more accurately reflect our healthy population. There may be differences in the flagging of prior results with similar values performed with this method. Interpretation of those prior results can be made in the context of the updated reference intervals. Protein Total 8.7(H) 6.4 - 8.3 g/dL 01/15/2024 2:12 AM [facility] Albumin 4.5 3.5 - 5.2 g/dL 01/15/2024 2:12 AM [facility] Bilirubin Total 0.2 <=1.2 mg/dL 01/15/2024 2:12 AM [facility] Blood BLOOD SPECIMEN / Unknown Venipuncture / Unknown 01/15/2024 1:41 AM SITE SAFETY REPRESENTATIVE 01/15/2024 1:45 AM [facility] Sam Martini MD LAB - BLOOD ORDERAB LES LABORATORY [facility] [address] floor, [address] [place] [address], [facility] [phone] * (ABNORMAL) iStat Gases (lactate) venous, POCT (01/10/2024 1:57 AM SITE SAFETY REPRESENTATIVE) Lactic Acid POCT 1.0 <=2.0 mmol/L 01/10/2024 2:01 AM [facility] POC Bicarbonate Venous POCT 24 21 - 28 mmol/L 01/10/2024 2:01 AM [facility] POC O2 Sat, Venous POCT 49(L) 70 - 75 % 01/10/2024 2:01 AM [facility] POC pCO2 Venous POCT 44 40 - 50 mm Hg 01/10/2024 2:01 AM [facility] POC pH Venous POCT 7.34 7.32 - 7.43 01/10/2024 2:01 AM [facility] POC pO2 Venous POCT 28 25 - 47 mm Hg 01/10/2024 2:01 AM [facility] POC Blood, venous BLOOD SPECIMEN / Unknown 01/10/2024 1:57 AM SITE SAFETY REPRESENTATIVE 01/10/2024 2:01 AM SITE SAFETY REPRESENTATIVE Manpreet Marin MD LAB - BEAKER POCT LABORATORY POC [facility] [address] 1[address] floor, [address] [place] [address], [place] [phone] * Urine Culture (01/08/2024 6:34 AM SITE SAFETY REPRESENTATIVE) Culture <10,000 CFU/mL Mixture of Urogenital Aiyana 01/09/2024 6:13 AM SITE SAFETY REPRESENTATIVE [facility] Urine MID-STREAM URINE SPECIMEN / Unknown Non-blood Collection / Unknown 01/08/2024 6:34 AM SITE SAFETY REPRESENTATIVE 01/08/2024 7:02 AM SITE SAFETY REPRESENTATIVE Melissa Chavez MD LAB - MICRO GEN ERAL ORDERABLES [facility] Inf. Diseases Diag. Lab [address] [facility], [address] [place] [address], [place] [phone] * (ABNORMAL) AST (01/05/2024 10:42 AM SITE SAFETY REPRESENTATIVE) AST 350(H) 0 - 45 U/L 01/05/2024 11:11 AM SITE SAFETY REPRESENTATIVE LABORATORY Blood STRUCTURE OF LEFT UPPER LIMB / Unknown Venipuncture / Unknown 01/05/2024 10:42 AM SITE SAFETY REPRESENTATIVE 01/05/2024 10:46 AM SITE SAFETY REPRESENTATIVE Janie Arellano MD LAB - BLOOD ORDERABL ES LABORATORY [facility] [address] 1[address] floor, [address] [place] [address], [facility] [phone] * XR Knee Right 3 Views (01/05/2024 4:41 AM SITE SAFETY REPRESENTATIVE) Anatomical Region Laterality Modality Thigh, Knee, Leg Right Digital Radiogr aphy 01/05/2024 4:41 AM SITE SAFETY REPRESENTATIVE Impressions 01/05/2024 4:47 AM SITE SAFETY REPRESENTATIVE IMPRESSION: Normal joint spaces and alignment. No fracture or joint effusion. Narrative 01/05/2024 4:47 AM SITE SAFETY REPRESENTATIVE EXAM: XR KNEE RIGHT 3 VIEWS LOCATION: [facility] DATE: 01/05/2024 INDICATION: fall, pain COMPARISON: None. Procedure Note Angel Luis Sanchez MD - 01/05/2024 EXAM: XR KNEE RIGHT 3 VIEWS LOCATION: [facility] DATE: 01/05/2024 INDICATION: fall, pain COMPARISON: None. IMPRESSION: Normal joint spaces and alignment. No fracture or jointeffusion. Janie Arellano MD IMG DIAGNOSTIC IMAGI NG ORDERABLES * HCG qualitative Blood (01/05/2024 3:49 AM SITE SAFETY REPRESENTATIVE) hCG Serum Qualitative Negative Negative [place] 01/05/2024 4:25 AM SITE SAFETY REPRESENTATIVE LABORATORY Comment:This test is for scr eening purposes. Results should be interpreted along with the clinical picture. Confirmation testing is available if warranted by ordering [id number], HCG Quantitative . Blood BLOOD SPECIMEN / Unknown Venipuncture / Unknown 01/05/2024 3:49 AM SITE SAFETY REPRESENTATIVE 01/05/2024 4:07 AM SITE SAFETY REPRESENTATIVE Janie Arellano MD LAB - BLOOD ORDERABL ES LABORATORY [facility] [address] 1st floor, [address] [place] [address], [facility] [phone] * CT Chest Pulmonary Embolism w Contrast (01/01/2024 7:04 PM SITE SAFETY REPRESENTATIVE) Anatomical Region Laterality Modality Chest, SUBRAD CT BODY, UMP CT CHEST Computed Tomography 01/01/2024 7:04 PM SITE SAFETY REPRESENTATIVE Impressions 01/01/2024 8:04 PM SITE SAFETY REPRESENTATIVE IMPRESSION: 1. ??Most of the emboli seen on the prior exam have resolved. There remains a small branch embolus posterior segmental pulmonary artery in the right lung base where there was previous PE. No evidence for right heart strain. Narrative 01/01/2024 8:04 PM SITE SAFETY REPRESENTATIVE EXAM: CT CHEST PULMONARY EMBOLISM W CONTRAST LOCATION: [facility] DATE: 01/01/2024 INDICATION: History of PE off anticoag. COMPARISON: 12/13/2023. TECHNIQUE: CT chest pulmonary angiogram during arterial phase injection of IV contrast. Multiplanar reformats and MIP reconstructions were performed. Dose reduction techniques were used. CONTRAST: 71 mL Isovue 370. FINDINGS: ANGIOGRAM CHEST: Most of the previously seen pulmonary emboli have resolved. There is a small amount of embolus at a branch segmental vessel posterior right lower lobe where clot was seen previously. No evidence for right heart strain. Thoracic aorta negative for dissection. LUNGS AND PLEURA: Tiny 1 mm subpleural nodule left lower lobe. MEDIASTINUM/AXILLAE: Normal. CORONARY ARTERY CALCIFICATION: None. UPPER ABDOMEN: Normal. MUSCULOSKELETAL: Normal. Procedure Note Hai Obrien MD - 01/01/2024 EXAM: CT CHEST PULMONARY EMBOLISM W CONTRAST LOCATION: [facility] DATE: 01/01/2024 INDICATION: History of PE off anticoag. COMPARISON: 12/13/2023. TECHNIQUE: CT chest pulmonary angiogram during arterial phase injection ofIV contrast. Multiplanar reformats and MIP reconstructions were performed.Dose reduction techniques were used. CONTRAST: 71 mL Isovue 370. FINDINGS: ANGIOGRAM CHEST: Most of the previously seen pulmonary emboli haveresolved. There is a small amount of embolus at a branch segmental vesselposterior right lower lobe where clot was seen previously. No evidence forright heart strain. Thoracic aorta negative for dissection. LUNGS AND PLEURA: Tiny 1 mm subpleural nodule left lower lobe. MEDIASTINUM/AXILLAE: Normal. CORONARY ARTERY CALCIFICATION: None. UPPER ABDOMEN: Normal. MUSCULOSKELETAL: Normal. IMPRESSION: 1. Most of the emboli seen on the prior exam have resolved. There remainsa small branch embolus posterior segmental pulmonary artery in the rightlung base where there was previous PE. No evidence for right heartstrain. Luz Cazares DO IMG CT ORDERABLES * Nt probnp inpatient (BNP) (01/01/2024 4:40 PM SITE SAFETY REPRESENTATIVE) [facility] N terminal Pro BNP Inpatient 73 0 - 450 pg/mL 01/01/2024 6:00 PM SITE SAFETY REPRESENTATIVE LABORATORY Comment: Reference range shown and results flagged as abnormal are suggested inpatient cut points for confirming diagnosis if CHF in an acute setting. Establishing a baseline value for each individual patient is useful for follow-up. An inpatient or emergency department NT-proPBNP <300 pg/mL effectively rules out acute CHF, with 99% negative predictive value. The outpatient non-acute reference range for ruling out CHF is: 0-125 pg/mL (age 18 to less than 75) 0-450 pg/mL (age 75 yrs and older) Blood BLOOD SPECIMEN / Unknown Venipuncture / Unknown 01/01/2024 4:40 PM SITE SAFETY REPRESENTATIVE 01/01/2024 5:29 PM SITE SAFETY REPRESENTATIVE Luz Cazares DO LAB - BLOOD ORDERABL ES LABORATORY [facility] [address] Lab (1st floor, no room number) [place] [address], [facility] [phone] * (ABNORMAL) Lipid panel reflex to direct LDL Fasting (01/01/2023 11:43 AM SITE SAFETY REPRESENTATIVE) [facility] Cholesterol 294(H) <200 mg/dL 01/01/2023 9:16 PM SITE SAFETY REPRESENTATIVE [facility] Triglycerides 196(H) <150 mg/dL 01/01/2023 9:16 PM SITE SAFETY REPRESENTATIVE [facility] Direct Measure HDL 58 >=50 mg/dL 01/01/2023 9:16 PM SITE SAFETY REPRESENTATIVE [facility] LDL Cholesterol Calculated 197(H) <=100 mg/dL 01/01/2023 9:16 PM SITE SAFETY REPRESENTATIVE [facility] Non HDL Cholesterol 236(H) <130 mg/dL 01/01/2023 9:16 PM SITE SAFETY REPRESENTATIVE [facility] Blood BLOOD SPECIMEN / Unknown Capillary / Unknown 01/01/2023 11:43 AM SITE SAFETY REPRESENTATIVE 01/01/2023 11:57 AM SITE SAFETY REPRESENTATIVE Narrative [facility] - 01/01/2023 9:16 PM SITE SAFETY REPRESENTATIVE Cholesterol Desirable: ??<200 mg/dL Triglycerides Normal: ??Less than 150 mg/dL Borderline High: ??150-199 mg/dL High: ??200-499 mg/dL Very High: ??Greater than or equal to 500 mg/dL Direct Measure HDL Female: ??Greater than or equal to 50 mg/dL Male: ??Greater than or equal to 40 mg/dL LDL Cholesterol Desirable: ??<100mg/dL Above Desirable: ??100-129 mg/dL Borderline High: ??130-159 mg/dL High: ??160-189 mg/dL Very High: ??>= 190 mg/dL Non HDL Cholesterol Desirable: ??130 mg/dL Above Desirable: ??130-159 mg/dL Borderline High: ??160-189 mg/dL High: ??190-219 mg/dL Very High: ??Greater than or equal to 220 mg/dL Segundo Virgen MD LAB - BLOOD CIELO LINO [facility] [address] [facility], [address] [place] [address], [facility] [phone] * MA Diagnostic Bilateral w/Aaron (09/02/2018 8:20 AM CDT) Anatomical Region Laterality Modality Breast Bilateral Mammography Impressions 09/02/2018 8:58 AM CDT IMPRESSION: BI-RADS CATEGORY: 3 - Probably Benign. RECOMMENDED FOLLOW-UP: Short Interval Follow-up 6 Months. Small focal density in the 12:00 position of the left breast. EMILIE CASANOVA MD Narrative 09/02/2018 8:58 AM CDT DIAGNOSTIC MAMMOGRAM BILATERAL, DIGITAL w/CAD AND TOMOSYNTHESIS, ULTRASOUND LEFT BREAST, 09/02/2018 8:57 AM. HISTORY: , ??; Lump or mass in breast BREAST DENSITY: Scattered fibroglandular densities. FINDINGS: ?Diagnostic mammogram: Partially well-circumscribed small focal density in the 12:00 position of the left breast which is likely benign. ?Diagnostic ultrasound: No corresponding ultrasound abnormality can be identified. No ultrasound findings at the sites of clinical concern. Clinical followup recommended. Villa Santamaria PA-C IMG MAMMOGRAPH Y ORDERABLES * Acute hepatitis panel (02/13/2016 10:56 AM CDT) Pathologist [facility] Hepatitis A Antibody IgM Negative Negative 02/14/2016 9:22 AM CDT [facility] Hepatitis B Core Antibody IgM Negative Negative 02/14/2016 9:22 AM CDT [facility] Hepatitis B Surface Antigen Negative Negative 02/14/2016 9:22 AM CDT [facility] Hepatitis C Antibody Negative Negative 02/14/2016 9:22 AM CDT [facility] Blood specimen (specimen) 02/13/2016 10:56 AM CDT 02/13/2016 11:01 AM CDT Meg Lee MD LAB - BLOOD ORDERABL ES [facility] [address] [place] [address], [facility] [address] [place] [address] * HIV 1 and 2 Antibody (11/24/2012 5:50 PM SITE SAFETY REPRESENTATIVE) HIV 1&2 Antibody Negative [facility] MICROBIOLOGY Blood specimen (specimen) 11/24/2012 5:50 PM SITE SAFETY REPRESENTATIVE 11/24/2012 7:53 PM SITE SAFETY REPRESENTATIVE Crissy Duncan MD LAB - BLOOD CHEMO [facility] MICROBIOLOGY * (ABNORMAL) A THIN LAYER, DIAGNOSTIC PAP (05/13/2009 12:00 AM CDT) PAP LSIL(A) ALDO Ruff Report Patient Name: IVELISSE CONTRERAS MR#: [id number] Specimen #: [id number] Collected: 05/13/2009 Received: 05/14/2009 Reported: 05/16/2009 15:27 Ordering Phy(s): FLOYD FRANCISCO SPECIMEN/STAIN PROCESS: A: Pap thin layer prep diagnostic ([facility]) ? Pap-Cyto x 1, Reflex HPV x 1 B: Pap thin layer prep diagnostic ([facility]) ? Pap-Cyto x 1, Reflex HPV x 1 SOURCE: Endocervical: A Cervical: B A Pap thin layer prep diagnostic ([facility]) SPECIMEN ADEQUACY: Satisfactory for evaluation. -Transformation zone component present. CYTOLOGIC INTERPRETATION: Epithelial Cell Abnormality: ??Squamous Cell: ??Low-grade squamous intraepithelial lesion (LSIL) encompassing: ??HPV/ mild dysplasia/ TAMAR 1. -cannot exclude ??high-grade squamous intraepithelial lesion. B Pap thin layer prep diagnostic ([facility]) SPECIMEN ADEQUACY: Satisfactory for evaluation. -Transformation zone component absent. CYTOLOGIC INTERPRETATION: Epithelial Cell Abnormality: ??Squamous Cell: ??Low-grade squamous intraepithelial lesion (LSIL) encompassing: ??HPV/ mild dysplasia/ TAMAR 1. -cannot exclude ??high-grade squamous intraepithelial lesion. Electronically signed out by: Virgilio Rocha M.D. Processed and screened at [facility], [facility] CLINICAL HISTORY: injection, Previous abnormal pap: LSIL 1/12/09, TESTING LAB LOCATION: 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 03/08/2024 Advance Directives For more information, please contact: [phone] * Full Code (Latest Code Status on File) Date Activated Date Inactivated Comments 03/06/2024 12:55 AM 03/13/2024 7:22 PM All basic an d advanced life-sustaining interventions are performed as appropriate Question Answer Comments Code status determined by: Discussion with patie nt/ legal decision maker * Full Code Date Activated Date Inactivated Comments 01/10/2024 4:25 AM 01/10/2024 8:44 PM All basic an d advanced life-sustaining interventions are performed as appropriate Question Answer Comments Code status determined by: Discussion with patie nt/ legal decision maker * Full Code Date Activated Date Inactivated Comments 12/05/2023 1:40 PM 12/08/2023 8:28 PM All basic and advanced life-sustaining interventions are performed as appropriate Question Answer Comments Code status determined by: Discussion with patie nt/ legal decision maker * Full Code Date Activated Date Inactivated Comments 12/02/2023 4:09 AM 12/02/2023 4:06 PM All basic and advanced life-sustaining interventions are performed as appropriate Question Answer Comments Code status determined by: Discussion with patie nt/ legal decision maker * Full Code Date Activated Date Inactivated Comments 11/24/2023 6:53 AM 11/29/2023 6:03 PM All basic an d advanced life-sustaining interventions are performed as appropriate Question Answer Comments Code status determined by: Discussion with patie nt/ legal decision maker Care Teams Grounds/Maintenance Specialist Relationship Specialty [place] [address] [address] PCP - General Family Medicine 04/22/23 [place] [address] [place] [address] Assigned Pain Medication Provider 12/07/22 [place] [address] [address] [address] Assigned PCP 01/23/23 [place] [address] [place] [address] Assigned Musculoskeletal Provider 01/23/23 Gregorio Dalton PA-C [address] [address] Assigned Surgical Provider 05/22/23 Kingsley Garcia MD [address] [place] [address] Assigned Heart and Vascular Provider 08/07/23 [place] [address] [place] [address] Family Medicine 09/10/23 Master Shea PA-C [address] [place] [address] Physician Nurse Practitioner Hospitalist Gastroenterology 09/10/23 Allyssa Justice MD [facility] [address] [place] [address] [address] Hematology & Oncology 12/10/23 Genaro Christian MD [address] [place] [address] Cardiovascular Disease 12/22/23 Master Shea PA-C [address] [place] [address] Assigned Gastroenterology Provider 12/23/23 Sienna Guillermo DO [address] [place] [address] Physician Cardiovascular Disease 01/18/24 Allyssa Justice MD [facility] [address] [place] [address] [id number] Assigned Cancer Care Provider 03/21/24
--- OUTSIDE RECORDS SUMMARY | 2024-03-25 18:12 | XMS_ITS | Encounter Summary ---
Author Name Unknown Organization [facility] Address [address] [place] [address] Care Team Providers Care Regional Telecommunications Specialist Name Role Phone Segundo Mcclelland MD Unavailable [phone] Segundo Mcclelland MD Unavailable [phone] Qamar Jackson MD Unavailable Segundo Mcclelland MD Primary Care Provider + Gregorio Dalton PA-C Unavailable [phone] Kingsley Garcia MD Unavailable + [phone] Segundo Mcclelland MD Unavailable [phone] Master Shea PA-C Unavailable Allyssa Justice MD Unavailable [phone] Genaro Christian MD Unavailable [phone] Master Shea-C Unavailable Sienna Guillermo DO Unavailable [phone] Allyssa Justice MD Unavailable [phone] Reason for Visit * Reason Comments Medication Refill Encounter Details Date Type Department Care Team (Late st Contact Info) Description 03/22/2024 Refill [facility] [address] [place] [address] Gregorio Dalton PA-C [address] [address] Medication Refill Social History Tobacco Use Types Packs/Day Years Used Date Smoking Tobacco: Never Passive Smoke Exposure: Never Smokeless Tobacco: Never Alcohol Use Standard Drinks/Week Comments [...] Orientation Straight 05/26/2021 10 :37 AM CDT documented as of this encounter Miscellaneous Notes * Telephone Encounter - Rita Gordon, RN - 03/22/2024 11:03 AM CDT Will refuse medication. Pt needs to be seen and it has been 10+ months since seen. This will be done per protocol. Rita Garcia, MS, RD, RN documented in this encounter Plan of Treatment Upcoming Encounters Date Type Department Care Team (Late st Contact Info) Description 05/09/2024 10:00 AM CDT Office Visit [facility] [address] [address] [place] [address] [address] documented as of this encounter Visit Diagnoses Not on file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 Assessment Noted Time PHQ-9 Depression Total Score: 4 02/21/20 24 1:54 PM CDT documented as of this encounter Care Teams Regional Telecommunications Specialist Relationship Specialty Start [place] [address] [address] [address] PCP - General Family Medicine 04/22/23 [place] [address] [address] [address] Assigned Pain Medication Provider 12/07/22 [place] [address] [place] [address] Assigned PCP 01/23/23 [place] [address] [place] [address] [place] [address] Assigned Musculoskeletal Provider 01/23/23 Gregorio Dalton PA-C [address] [address] Assigned Surgical Provider 05/22/23 Kingsley Garcia MD [address] [place] [address] Assigned Heart and Vascular Provider 08/07/23 [place] [address] [place] [address] Family Medicine 09/10/23 Master Shea PA-C [address] [place] [address] Physician Vacation Planner Gastroenterology 09/10/23 Allyssa Justice MD [facility] [address] [address] Hematology & Oncology 12/10/23 Genaro Christian MD [address] [place] [address] [id number] Cardiovascular Disease 12/22/23 Master Shea PA-C [address] [place] [address] Assigned Gastroenterology Provider 12/23/23 Sienna Guillermo DO [address] [place] [id number] Physician Cardiovascular Disease 01/18/24 Allyssa Justice MD [facility] [address] [place] [id number] Assigned Cancer Care Provider 03/21/24 documented as of this encounter
--- OUTSIDE RECORDS SUMMARY | 2024-03-25 18:12 | XMS_ITS | Encounter Summary ---
Author Name Unknown Organization [place] Address [facility] [place] [address] Care Team Providers Care Sales Audit Clerk Name Role Phone Segundo Mcclelland MD Unavailable [phone] Segundo Mcclelland MD Unavailable [phone] Qamar Jackson MD Unavailable Segundo Mcclelland MD Primary Care Provider + Gregorio Dalton-Shirley Unavailable +[phone] Kingsley Garcia MD Unavailable + [phone] Segundo Mcclelland MD Unavailable +[phone] Master Shea PA-C Unavailable Allyssa Justice MD Unavailable [phone] Genaro Christian MD Unavailable [phone] Master Shea-C Unavailable Sienna Guillermo DO Unavailable +[phone] Allyssa Justice MD Unavailable [phone] Reason for Visit * Reason Comments Other Entered automaticall y based on patient selection in [employer]. Encounter Details Date Type Department Care Team (Late st Contact Info) Description 03/23/2024 2:30 PM CDT E-Visit [address] [address] [place] [address] [place] [address] Other (Entered automatically based on ngozi... Social History Tobacco Use Types Packs/Day Years [...] encounter Miscellaneous Notes * Telephone Encounter - Segundo Mcclelland MD - 03/23/2024 4:15 PM CDT Provider E-Visit time total (minutes): arrrgh documented in this encounter Plan of Treatment Upcoming Encounters Date Type Department Care Team (Late st Contact Info) Description 05/09/2024 10:00 AM CDT Office Visit [facility] [place] [address] [place] [address] [place] [address] [address] [address] documented as of this encounter Visit Diagnoses Diagnosis Osteomyelitis, unspecified site, unspecified type (H)- Primary 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 Assessment Noted Time PHQ-9 Depression Total Score: 4 02/21/20 24 1:54 PM CDT documented as of this encounter Care Teams Sales Audit Clerk Relationship Specialty Start [place] [address] [place] [place] [address] PCP - General Family Medicine 04/22/23 [place] [address] [address] [place] [address] Assigned Pain Medication Provider 12/07/22 [place] [address] [place] [address] Assigned PCP 01/23/23 [place] [address] [place] [address] Assigned Musculoskeletal Provider 01/23/23 Gregorio Dalton PA-C [address] [place] [address] Assigned Surgical Provider 05/22/23 Kingsley Garcia MD [address] [place] [address] Assigned Heart and Vascular Provider 08/07/23 [place] [address] [place] [address] Family Medicine 09/10/23 Master Shea PA-C [address] [address] Physician Air Intercept Controller Supervisor Gastroenterology 09/10/23 Allyssa Justice MD [facility] [address] [place] [address] Hematology & Oncology 12/10/23 Genaro Christian MD [address] [place] [address] Cardiovascular Disease 12/22/23 Master Shea PA-C [address] [place] [address] Assigned Gastroenterology Provider 12/23/23 Sienna Guillermo DO [address] [place] [address] Physician Cardiovascular Disease 01/18/24 Allyssa Justice MD [facility] [address] [place] [address] Assigned Cancer Care Provider 03/21/24 documented as of this encounter
--- OUTSIDE RECORDS SUMMARY | 2024-03-25 18:12 | XMS_ITS | Encounter Summary ---
Author Name Unknown Organization [place] Address [facility] [place] [address] Care Team Providers Care Billing Adjudicator Name Role Phone Segundo Mcclelland MD Unavailable [phone] Segundo Mcclelland MD Unavailable [phone] Qamar Jackson MD Unavailable Segundo Mcclelland MD Primary Care Provider + Gregorio Dalton-C Unavailable +[phone] Kingsley Garcia MD Unavailable + [phone] Segundo Mcclelland MD Unavailable [phone] Master Shea-Shirley Unavailable Allyssa Justice MD Unavailable [phone] Genaro Christian MD Unavailable [phone] Master Shea-C Unavailable Sienna Guillermo DO Unavailable +[phone] Allyssa Justice MD Unavailable [phone] Encounter Details Date Type Department Care Team (Late st Contact Info) Description 03/22/[address] [facility] [address] [place] [address] Rita Gordon, DONNA [facility] [address] [place] [address] Social History Tobacco Use Types Packs/Day Years [...] AM CDT documented as of this encounter Plan of Treatment Upcoming Encounters Date Type Department Care Team (Late st Contact Info) Description 05/09/2024 10:00 AM CDT Office Visit [facility] [address] [place] [address] [place] [address] [address] [place] [place] [address] documented as of this encounter Visit Diagnoses Not on file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 Assessment Noted Time PHQ-9 Depression Total Score: 4 02/21/20 24 1:54 PM CDT documented as of this encounter Care Teams Billing Adjudicator Relationship Specialty Start [place] [address] [place] [address] PCP - General Family Medicine 04/22/23 [place] [address] [place] [address] Assigned Pain Medication Provider 12/07/22 [place] [address] [place] [address] Assigned PCP 01/23/23 [place] [address] [place] [address] Assigned Musculoskeletal Provider 01/23/23 Gregorio Dalton PA-C [address] [place] [address] Assigned Surgical Provider 05/22/23 Kingsley Garcia MD [address] [place] [address] Assigned Heart and Vascular Provider 08/07/23 [place] [address] [place] [address] Family Medicine 09/10/23 Master Shea PA-C [address] [place] [address] Physician Merchandise Flow Team Member Gastroenterology 09/10/23 Allyssa Justice MD [facility] [address] [place] [address] Hematology & Oncology 12/10/23 Genaro Christian MD [address] [place] [address] Cardiovascular Disease 12/22/23 Master Shea PA-C [address] [place] [address] Assigned Gastroenterology Provider 12/23/23 Sienna Guillermo DO [address] [place] [address] Physician Cardiovascular Disease 01/18/24 Allyssa Justice MD [facility] [address] [place] [address] Assigned Cancer Care Provider 03/21/24 documented as of this encounter
--- OUTSIDE RECORDS SUMMARY | 2024-03-25 18:12 | XMS_ITS | Encounter Summary ---
Author Name Unknown Organization [place] Address [facility] [place] [address] Care Team Providers Care Machine Binder Stripper Name Role Phone Segudno Mcclelland MD Unavailable [phone] Segundo Mcclelland MD Unavailable [phone] Qamar Jackson MD Unavailable Segundo Mcclelland MD Primary Care Provider + Gregorio Dalton PA-C Unavailable [phone] Kingsley Garcia MD Unavailable + [phone] Segundo Mcclelland MD Unavailable [phone] Master Shea PA-C Unavailable Allyssa Justice MD Unavailable [phone] Genaro Christian MD Unavailable + [phone] Master Shea-Shirley Unavailable Sienna Guillermo DO Unavailable [phone] Allyssa Justice MD Unavailable [phone] Encounter Details Date Type Department Care Team (Latest Contact Info) Description 03/24/2024 Travel Social History Tobacco Use Types Packs/Day Years [...] Description 05/09/2024 10:00 AM CDT Office Visit [facility] [address] [place] [address] [place] [address] [place], [place] [address] documented as of this encounter Visit Diagnoses Not on file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 Assessment Noted Time PHQ-9 Depression Total Score: 4 02/21/20 24 1:54 PM CDT documented as of this encounter Care Teams Machine Binder Stripper Relationship Specialty Start [place] [address] [place] [address] PCP - General Family Medicine 04/22/23 [place] [address] [place] [place] [address] Assigned Pain Medication Provider 12/07/22 [place] [address] [place] [address] Assigned PCP 01/23/23 [place] [address] [place] [address] Assigned Musculoskeletal Provider 01/23/23 Gregorio Dalton PA-C [address] [address] Assigned Surgical Provider 05/22/23 Kingsley Garcia MD [address] [place] [address] Assigned Heart and Vascular Provider 08/07/23 [place] [address] [place] [address] Family Medicine 09/10/23 Master Shea PA-C [address] [place] [address] Physician Organic Chemistry Professor Gastroenterology 09/10/23 Allyssa Justice MD [facility] [address] [place] [address] Hematology & Oncology 12/10/23 Genaro Christian MD [address] [place] [address] Cardiovascular Disease 12/22/23 Master Shea PA-C [address] [place] [address] Assigned Gastroenterology Provider 12/23/23 Sienna Guillermo DO [address] [place] [address] Physician Cardiovascular Disease 01/18/24 Allyssa Justice MD [facility] [address] [place] [address] Assigned Cancer Care Provider 03/21/24 documented as of this encounter
--- OUTSIDE RECORDS SUMMARY | 2024-03-25 18:12 | XMS_ITS | Encounter Summary ---
Author Name Unknown Organization [place] Address [facility] [place] [address] Care Team Providers Care Head Shipper Name Role Phone Segundo Mcclelland MD Unavailable [phone] Segundo Mcclelland MD Unavailable [phone] Qamar Jackson MD Unavailable Segudno Mcclelland MD Primary Care Provider + Gregorio Dalton PA-C Unavailable [phone] Kingsley Garcia MD Unavailable + [phone] Segundo Mcclelland MD Unavailable [phone] Master Shea PA-C Unavailable Allyssa Justice MD Unavailable [phone] Genaro Christian MD Unavailable + [phone] Master Shea-C Unavailable Sienna Guillermo DO Unavailable +[phone] Allyssa Justice MD Unavailable [phone] Reason for Visit * Reason Onset Date Comments Medication Request 03/23/2024 hydromorphone Encounter Details Date Type Department Care Team (Late st Contact Info) Description 03/23/2024 [facility] [address] [place] [address] [place] [address] [place] [address] Medication Request (hydromorphone) Social History Tobacco Use Types Packs/Day Years [...] Encounter - Segundo Mcclelland MD - 03/23/2024 4:18 PM CDT Responded through E-visit Segundo Mcclelland MD * Telephone Encounter - Jr Tovar RN - 03/23/2024 3:[address] 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 Assessment Noted Time PHQ-9 Depression Total Score: 4 02/21/20 24 1:54 PM CDT documented as of this encounter Care Teams Head Shipper Relationship Specialty Start [place] [address] [address] [place] [address] PCP - General Family Medicine 04/22/23 [place] [address] [address] [place] [address] Assigned Pain Medication Provider 12/07/22 [place] [address] [address] [place] [address] Assigned PCP 01/23/23 [place] [address] [place] [address] Assigned Musculoskeletal Provider 01/23/23 Gregorio Dalton PA-C [address] [address] Assigned Surgical Provider 05/22/23 Kingsley Garcia MD [address] [place] [address] Assigned Heart and Vascular Provider 08/07/23 [place] [address] [place] [address] Family Medicine 09/10/23 Master Shea PA-C [address] [place] [place] [address] Physician Machine Setter And Repairer Gastroenterology 09/10/23 Allyssa Justice MD [facility] [address] [address] Hematology & Oncology 12/10/23 Genaro Christian MD [address] [place] [address] Cardiovascular Disease 12/22/23 Master Shea PA-C [address] [place] [address] Assigned Gastroenterology Provider 12/23/23 Sienna Guillermo DO [address] [place] [address] Physician Cardiovascular Disease 01/18/24 Allyssa Justice MD [facility] [address] [place] [address] Assigned Cancer Care Provider 03/21/24 documented as of this encounter
--- OUTSIDE RECORDS SUMMARY | 2024-03-25 18:12 | XMS_ITS | Encounter Summary ---
Author Name Unknown Organization [place] Address [facility] [place] [address] Care Team Providers Care Driver'S License Reviewing Officer Name Role Phone Segundo Mcclelland MD Unavailable [phone] Segundo Mcclelland MD Unavailable [phone] Qamar Jackson MD Unavailable Segundo Mcclelland MD Primary Care Provider + Gregorio Dalton PA-C Unavailable +[phone] Kingsley Garcia MD Unavailable + [phone] Segundo Mcclelland MD Unavailable [phone] Master Shea PA-C Unavailable Allyssa Justice MD Unavailable [phone] Genaro Christian MD Unavailable + [phone] Master Shea-Shirley Unavailable Sienna Guillermo DO Unavailable +[phone] Allyssa Justice MD Unavailable [phone] Reason for Visit * Reason Onset Date Comments Refill Request 03/23/2024 Encounter Details Date Type Department Care Team (Late st Contact Info) Description 03/23/[address] [address] [place] [address] [place] [address] Refill Request Social History Tobacco Use Types Packs/Day Years [...] Description 05/09/2024 10:00 AM CDT Office Visit [facility] [place] [address] [facility] [place] [address] [place] [address] [address] [place] [address] documented as of this encounter Visit Diagnoses Diagnosis Osteomyelitis, unspecified site, unspecified type (H) 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 Assessment Noted Time PHQ-9 Depression Total Score: 4 02/21/20 24 1:54 PM CDT documented as of this encounter Care Teams Driver'S License Reviewing Officer Relationship Specialty Start [place] [address] [address] [place] [address] PCP - General Family Medicine 04/22/23 [place] [address] [address] [place] [address] Assigned Pain Medication Provider 12/07/22 [place] [address] [address] [place] [address] Assigned PCP 01/23/23 [place] [address] [address] [place] [address] Assigned Musculoskeletal Provider 01/23/23 Gregorio Dalton PA-C [address] [address] Assigned Surgical Provider 05/22/23 Kingsley Garcia MD [address] [place] [address] Assigned Heart and Vascular Provider 08/07/23 [place] [address] [address] [address] Family Medicine 09/10/23 Master Shea PA-C [address] [place] [address] Physician Household Coordinator Gastroenterology 09/10/23 Allyssa Justice MD [facility] [address] [place] [address] Hematology & Oncology 12/10/23 Genaro Christian MD [address] [place] [address] Cardiovascular Disease 12/22/23 Master Shea PA-C [address] [place] [address] Assigned Gastroenterology Provider 12/23/23 Sienna Guillermo DO [address] [place] [address] Physician Cardiovascular Disease 01/18/24 Allyssa Justice MD [facility] [address] [place] [address] Assigned Cancer Care Provider 03/21/24 documented as of this encounter
--- OUTSIDE RECORDS SUMMARY | 2024-03-25 18:12 | XMS_ITS | Referral Summary ---
Author Name Unknown Organization [place] Address [facility] [place] [address] Care Team Providers Care Kit Planner Name Role Phone Segundo Virgen MD Unavailable [phone] Segundo Virgen MD Unavailable [phone] Qamar Jackson MD Unavailable Segundo Virgen MD Primary Care Provider + Gregorio Dalton PA-C Unavailable [phone] Kingsley Garcia MD Unavailable + [phone] Segundo Virgen MD Unavailable [phone] Master Shea PA-C Unavailable Allyssa Justice MD Unavailable [phone] Genaro Christian MD Unavailable Master Shea-Shirley Unavailable Sienna Guillermo DO Unavailable [phone] Allyssa Justice MD Unavailable [phone] Encounters Date Type Department Care Team Description 03/24/2024 Travel 03/24/2024 5:34 PM CDT - 03/24/2024 10:[address] [facility] Emergency Dept [address] [place] [phone] Emily Rogers MD Neck pain Discharge Disposition: Home or Self Care 03/23/2024 Telephone [facility] [address] [place] [phone] Segundo Virgen MD Medication Request (hydromorphone) 03/23/2024 2:30 PM CDT E-Visit [facility] [address] [place] [phone] Segundo Virgen MD Other (Entered automatically based on ngozi... 03/23/2024 MyC Refill [facility] [address] [place] [phone] eSgundo Virgen MD Refill Request 03/22/2024 MyC Medical Advice [facility] [address] [phone] Rita Gordon RN 03/22/2024 Refill [facility] [address] [phone] Gregorio Dalton PA-C Medication Refill 03/21/2024 4:35 AM CDT E-Visit [facility] [address] [place] [phone] Segundo Virgen MD Other (Entered automatically based on ngozi... 03/20/2024 Orders Only [facility] [address] [place] [address] Segundo Virgen MD Poor intravenous access (Primary Dx) 03/20/2024 Travel 03/20/2024 Telephone [facility] [address] [place] [address] Ugo Knott, RN 03/20/2024 1:58 PM CDT - 03/20/2024 11:59 PM CDT Hospital Encounter [facility] [address] [place] [phone] Donavon Quinones MD Bunney, Andrew, MD Poor intravenous access Discharge Disposition: Home or Self Care 03/20/2024 [facility] [address] [place] [phone] Segundo Virgen MD 03/20/2024 Orders Only [facility] [address] [place] [phone] Karla Bay RN Poor intravenous access (Primary Dx) 03/20/2024 Telephone [facility] [address] [place] [phone] Ugo Knott RN 03/19/2024 Travel 03/19/2024 9:02 AM CDT - 03/19/2024 2:49 PM CDT Emergency [facility] Emergency Dept [address] [place] [address] [phone] Luz Cazares DO Problem with vascular access Discharge Disposition: Home or Self Care 03/18/2024 10:05 AM CDT E-Visit [facility] [address] [place] [phone] Segundo Virgen MD Other (Entered automatically based on ngozi... 03/17/2024 Telephone [facility] [address] [place] [phone] Segundo Virgen MD Refill Request (dilaudid) 03/17/2024 Telephone [facility] [address] [place] [phone] Segundo Virgen MD Home Infusion 03/16/2024 Telephone [facility] [address] [place] [address] Segundo Virgen MD Medication Request 03/15/2024 7:49 AM CDT - 03/15/2024 12:36 PM CDT Hospital Encounter [facility] [address] [place] [id number] Non- Credentialed Provider, Radiology Other iron deficiency anemia (Primary Dx); Infection of lumbar spine (H) Discharge Disposition: Home or Self Care 03/14/2024 Telephone [facility] Interventional Radiology [address] [place] [phone] Deepika Tom RN 03/14/2024 Telephone [facility] [address] [place] [address] Segundo Virgen MD Orders 03/14/2024 10:30 AM CDT E-Visit [facility] [address] [place] [phone] Segundo Virgen MD Other (Entered automatically based on ngozi... 03/14/2024 Telephone [facility] [address] [place] [phone] Segundo Virgen MD Referral ([facility]) 03/14/2024 Orders Only [facility] [address] [place] [phone] Huan Wallis MD Infection of lumbar spine (H) (Primary Dx) 03/05/2024 8:55 PM CDT - 03/13/2024 5:17 PM CDT Hospital Encounter [facility] Ortho Spine [address] [place] [address] Sam Schofield MD Eklund, MD Joanie Tovar, Lesley Alfredo MD Osteomyelitis, unspecified site, unspecified type (H) (Primary Dx); Positive blood culture; Anemia; Back pain; Hypokalemia; Chronic bilateral low back pain without sciatica; Multiple subsegmental pulmonary emboli without acute cor pulmonale (H); Acute low back pain with radicular symptoms, duration less than 6 weeks; Discitis, unspecified spinal region Discharge Disposition: Home or Self Care 03/09/2024 Telephone [facility] [address] [place] [phone] Segundo Virgen MD Forms ([facility]) 03/06/2024 MyC Medical Advice [facility] [address] [place] [address] Segundo Virgen MD 03/05/2024 Travel 03/03/2024 Telephone [facility] [address] [place] [address] Segundo Virgen MD Pain 03/03/2024 MyC Refill [facility] [address] [place] [address] Segundo Virgen MD Refill Request 03/02/2024 10:55 PM CDT E-Visit [facility] [address] [place] [address] Segundo Virgen MD Other (Entered automatically based on ngozi... 03/02/2024 Travel 03/02/2024 1:22 PM CDT - 03/02/2024 10:51 PM CDT Emergency [facility] Emergency Dept [address] [place] [address] Janie Arellano MD Farnan, Christopher M, MD McDonald, Lindsey E, DO Acute midline low back pain without sciatica; Paresthesias Discharge Disposition: Home or Self Care 03/01/2024 PRE VISIT [facility] [place] [address] [facility] [place] [phone] Allyssa Justice MD *-*INCOMING RECORDS*-* (Anemia, unspecified type [D64.9]) 03/01/2024 1:40 PM CDT Virtual Visit [facility] [place] [address], [address] [facility] [place] [phone] Allyssa Justice MD Iron deficiency anemia, unspecified iron deficiency anemia type (Primary Dx); Anemia, unspecified type; Pulmonary nodules 02/28/2024 MyC Refill [facility] [address] [place] [phone] Segundo Virgen MD Refill Request 02/26/2024 Travel 02/26/2024 3:38 AM CDT - 02/26/2024 8:17 AM CDT Emergency [facility] Emergency Dept [address] [place] [address] Kingsley Kimble MD Haapapuro, Lucas Ray, MD Acute midline low back pain with left-sided sciatica Discharge Disposition: Home or Self Care 02/23/2024 4:55 PM CDT E-Visit [facility] [address] [place] [phone] Segundo Virgen MD Other (Entered automatically based on ngozi... 02/23/2024 [facility] [address] [place] [phone] Segundo Virgen MD Refill Request 02/22/2024 MyC Medical Advice [facility] [address] [place] [phone] Segundo Virgen MD Acute low back pain with radicular symptoms, duration less than 6 weeks (Primary Dx) 02/21/2024 2:00 PM CDT Virtual Visit [facility] [address] [place] [phone] Segundo Virgen MD Acute low back pain with radicular symptoms, duration less than 6 weeks (Primary Dx); Nausea and vomiting, unspecified vomiting type; POTS (postural orthostatic tachycardia syndrome) 02/18/2024 2:05 AM CDT E-Visit [facility] [address] [place] [address] Segundo Virgen MD Other (Entered automatically based on ngozi... 02/17/2024 MyC Refill [facility] [address] [place] [phone] Segundo Virgen MD Refill Request 02/17/2024 3:57 PM CDT - 02/17/2024 6:34 PM CDT Emergency [facility] Emergency Dept [address] [place] [address] Seth Farias MD Nausea and vomiting, unspecified vomiting type; Orthostatic syncope Discharge Disposition: Home or Self Care 02/17/2024 Telephone [facility] [address] [place] [address] Segundo Virgen MD Patient Request 02/17/2024 Travel 02/17/2024 12:57 AM CDT - 02/17/2024 5:36 AM CDT Emergency [facility] Emergency Dept [address] [place] [address] Kingsley Kimble MD Chest pain, unspecified type Discharge Disposition: Home or Self Care 02/11/2024 Travel 02/11/2024 4:45 AM CDT - 02/11/2024 10:57 AM CDT Emergency [facility] Emergency Dept [address] [place] [address] Sam Alvarado MD Goodwin, Shaun M, MD Post-operative pain exacerbating chronic pain syndrome; Nausea and vomiting, unspecified vomiting type; COVID-19 virus infection Discharge Disposition: Home or Self Care 02/08/2024 [facility]ill [facility] [address] [place] [phone] Segundo Virgen MD 02/08/2024 11:30 AM CDT E-Visit [facility] [address] [place] [phone] Segundo Virgen MD Other (Entered automatically based on ngozi... 02/08/2024 Telephone [facility] [address] [place] [phone] Segundo Virgen MD Medication Request 02/07/2024 MyC Refill [facility] [address] [place] [phone] Segundo Virgen MD Refill Request 02/07/2024 Travel 02/07/2024 2:08 AM CDT - 02/07/2024 6:57 AM CDT Emergency [facility] Emergency Dept [address] [place] [address] Kingsley Kimble MD Doan, Tiffani, DO Syncope, unspecified syncope type; Nausea and vomiting, unspecified vomiting type; Postoperative pain Discharge Disposition: Home or Self Care 02/04/2024 MyC Medical Advice [facility] [address] [place] [address] Segundo Virgen MD 02/04/2024 6:59 AM CHEMICAL ANALYST - 02/04/2024 11:00 AM CHEMICAL ANALYST Hospital Encounter [facility] Imaging [address] [place] [address] Malia Garrett DO Siddiqui, Fareed Ahmad, MD Poor intravenous access Discharge Disposition: Home or Self Care 02/03/2024 Home Infusion ([facility]) [facility] [address] [place] [phone] Opal Bustillos [facility] Home Infusion 02/03/2024 MyC Refill [facility] [address] [place] [phone] Segundo Virgen MD Refill Request 02/03/2024 3:35 AM CHEMICAL ANALYST [facility] [address] [place] [phone] Segundo Virgen MD Other (Entered automatically based on ngozi... 02/01/2024 MyC Medical Advice [facility] Interventional Radiology [address] [place] [phone] Norma Arredondo, DONNA 01/31/2024 MyC Medical [facility]ice [facility] [address] [place] [phone] Segundo Virgen MD 01/29/2024 9:05 PM CHEMICAL ANALYST - 01/30/2024 1:12 AM CHEMICAL ANALYST Emergency [facility] Emergency Dept [address] [place] [address] Renetta Humphries MD Syncope, unspecified syncope type; Rib contusion, left, initial encounter; Pulmonary nodules Discharge Disposition: Home or Self Care 01/29/2024 Travel 01/28/2024 5:55 PM CHEMICAL ANALYST - 01/29/2024 1:07 AM CHEMICAL ANALYST Emergency [facility] Emergency Dept [address] [place] [address] Livia Gutierrez MD Syncope and collapse; Rib pain on left side Discharge Disposition: Home or Self Care 01/28/2024 Travel 01/20/2024 MyC Medical Advice [facility] [place] [address] [facility] [address] [place] [address] Sienna Guillermo DO 01/19/2024 3:50 PM CHEMICAL ANALYST [facility] [address] [place] [phone] Segundo Virgen MD Other (Entered automatically based on ngozi... 01/19/2024 12:01 AM CHEMICAL ANALYST - 01/19/2024 5:04 AM CHEMICAL ANALYST Emergency [facility] Emergency Dept [address] [place] [address] Janie Arellano MD Syncope, unspecified syncope type; Acute pain of right shoulder Discharge Disposition: Home or Self Care 01/18/2024 Travel 01/18/2024 4:03 PM CHEMICAL ANALYST - 01/18/2024 6:53 PM CHEMICAL ANALYST Emergency [facility] Emergency Dept [address] [place] [address] Josh Castanon MD Syncope and collapse; Vomiting, unspecified vomiting type, unspecified whether nausea present Discharge Disposition: Home or Self Care 01/18/2024 MyC Medical Advice [facility] [address] [place] [phone] Brittney Reyes RN 01/18/2024 Telephone [facility] [address] [place] [address] Segundo Virgen MD Appointment 01/17/2024 2:30 PM CHEMICAL ANALYST [facility] [address] [place] [address] Segundo Virgen MD Acute embolism and thrombosis of deep veins of right upper extremity (H) (Primary Dx); Episodic opioid dependence (H); Mixed personality disorder (H); Morbid obesity (H) 01/14/2024 10:56 PM CHEMICAL ANALYST - 01/15/2024 3:24 AM CHEMICAL ANALYST Emergency [facility] Emergency Dept [address] [place] [phone] Sam Martini MD Tachycardia; Opiate withdrawal (H); Elevated liver function tests Discharge Disposition: Home or Self Care 01/14/2024 Travel 01/11/2024 Medical Correspondence [facility] [address] [place] [phone] Scan, Non-Provider 01/11/2024 Result Follow Up [facility] Services - General Medicine & Pediatrics [address] [place] [address] Rafael Watson MD 01/10/2024 MyC Medical Advice [facility] [address] [place] [phone] Segundo Virgen MD 01/10/2024 Telephone [facility] [address] [place] [phone] Segundo Virgen MD Forms ([facility] Infusion - Prescriber Orders) 01/10/2024 Telephone [facility] [address] [place] [address] Segundo Virgen MD Forms ([facility] - Specialty Referral) 01/09/2024 10:13 PM CHEMICAL ANALYST - 01/10/2024 6:39 PM CHEMICAL ANALYST Emergency [facility] [address] [place] [address] Manpreet Marin MD Melander, MD Karmen Lopez, Kingsley Mixon MD Positive blood culture Discharge Disposition: Home or Self Care 01/09/2024 Travel 01/08/2024 MyC Medical Advice [facility] [address] [place] [phone] Segundo Virgen MD 01/08/2024 Telephone [facility] [place] [address] Gardenia Ceja RN Medication Request 01/08/2024 Travel 01/08/2024 3:19 AM CHEMICAL ANALYST - 01/08/2024 9:25 AM CHEMICAL ANALYST Emergency [facility] Emergency Dept [address] [place] [phone] Melissa Chavez MD Acute cystitis with hematuria; Nausea and vomiting, unspecified vomiting type; Syncope, unspecified syncope type Discharge Disposition: Home or Self Care 01/05/2024 2:01 AM CHEMICAL ANALYST - 01/05/2024 2:20 PM CHEMICAL ANALYST Emergency [facility] Emergency Dept [address] [place] [address] Janie Arellano MD Doan, Tiffani, DO Injury of head, initial encounter; Elevated LFTs; Abdominal pain, unspecified abdominal location Discharge Disposition: Home or Self Care 01/04/2024 Travel 01/04/2024 Telephone [facility] [address] [place] [address] Segundo Virgen MD Refill Request (FLUCONAZOLE 150MG TABS 150) 01/04/2024 Telephone [facility] [address] [place] [address] Segundo Virgen MD 01/01/2024 Travel 01/01/2024 3:32 PM CHEMICAL ANALYST - 01/01/2024 8:10 PM CHEMICAL ANALYST Emergency [facility] Emergency Dept [address] [place] [address] Luz Cazares DO Chest pain, unspecified type; Single subsegmental pulmonary embolism without acute cor pulmonale (H) Discharge Disposition: Home or Self Care 12/30/2023 Telephone [facility] [address] [place] [address] Segundo Virgen MD 12/27/2023 MyC Medical Advice [facility] [address] [place] [address] [phone] Segundo Virgen MD Multiple subsegmental pulmonary emboli without acute cor pulmonale (H) 12/27/2023 Travel 12/24/2023 9:21 PM CHEMICAL ANALYST - 12/25/2023 3:25 AM CHEMICAL ANALYST Emergency [facility] Emergency Dept [address] [place] [address] Seth Farias MD Near syncope; Gastroparesis; POTS (postural orthostatic tachycardia syndrome); Multiple subsegmental pulmonary emboli without acute cor pulmonale (H) Discharge Disposition: Home or Self Care from Last 3 Months Allergies Active Allergy Reactions Criticality Noted Date [...] Active naloxone (NARCAN) 4 MG/0.1ML nasal spray [place] 4 mg into one nostril alternating nostrils [...] for 37 days Weekly CBC/diff,creat,S GOT,ESR,CRP to [facility] [phone] fax 370 mL 4 024 Active HYDROmorphone [...] daily (before meals) 180 tablet 1 3 Discontinued(Me d Rec(No AVS / No eCancel)) apixaban ANTICOAGULANT (ELIQUIS) 5 MG tabletIndications :Multiple subsegmental pulmonary emboli without acute cor pulmonale (H) Take 1 tablet (5 mg) by mouth 2 times daily 180 tablet 1 4 024 Discontinued phenazopyridine (PYRIDIUM) 100 MG tablet Take 1 tablet (100 mg) by mouth 3 times daily as needed for urinary tract discomfort 9 tablet 4 Discontinued loperamide (IMODIUM A-D) 2 MG tablet [...] for muscle spasms 20 tablet 1 4 Discontinued(Me d Rec(No AVS / [...] op at Discharge) Calcium 200 MG TABS 024 Discontinued(Me d Rec(No AVS / No [...] week for 42 days 18 tablet 4 Discontinued HYDROmorphone (DILAUDID) 2 MG tabletIndications :Osteomyelitis, unspecified site, unspecified type (H) Take 1 tablet (2 mg) by mouth every 4 hours as needed for moderate pain (IF pain not managed with non-pharmacologi tomas and non-opioid interventions) 42 tablet 4 Discontinued melatonin 5 MG tabletIndications :Osteomyelitis, unspecified site, unspecified type (H) Take 1 tablet (5 mg) by mouth nightly as needed for sleep 30 tablet 4 Discontinued(Me d Rec(No AVS / [...] as needed for constipation 100 tablet 4 024 Discontinued(Me d Rec(No AVS / No eCancel)) ertapenem (INVANZ) 1 GM vialIndications:B acteremia Inject 1 g into the vein every 24 hours for 36 days 4 Discontinued(St op at Discharge) diphenhydrAMINE (BENADRYL) 25 MG tabletIndications :Osteomyelitis, unspecified site, unspecified type (H) Take 1 tablet (25 mg) by mouth every 6 hours as needed for itching or allergies 8 tablet 4 024 Active Problems Patient Care Coordination No te [...] 01/11/24 Update. This patient is restricted to [facility] as stated below. She is avoiding going there because of her restriction. She is frequenting the [facility] ER and has had 12 CT's from [...] plan added. This patient is restricted to [facility]. Her current restrictions are: Restricted Recipient Program Please call the [employer] unit for additional information. The telephone number is or [phone]. Provider number [id number], [facility] is a provider for a Restricted Recipient for: Physician Services , Diagnostic Lab , Inpatient Hospital , Outpatient Hospital Provider number [id number], [id number] is a provider for a Restricted Recipient for: Pharmacy Provider number [id number], SEGUNDO VIRGEN MD is a provider for a Restricted Recipient for: Physician Services , Nurse Practitioner Services Provider number [id number], [facility] is a provider for a Restricted Recipient for: Physician Services , Diagnostic Lab , Nurse Practitioner Services If you are providing services other than the restricted services listed above, you may bill DHS. If you have questions, please call or [phone]. This can cause an issue when discharged [...] personality disorder 09/14/2005 Overview: Overview: LW Onset: LW Onset: ; Borderline Personality Insomnia 09/14/2005 Overview: Overview: LW Onset: LW Onset: ; Insomnia NOS Major depressive disorder, single episode 2004 Overview: Overview: LW Onset: [id number] LW Onset: 48Tyh76 ; Depression Major NOS Posttraumatic stress disorder 09/14/2005 Overview: Overview: LW Onset: 16Wpm21 LW Onset: 67Bql57 ; Post Traumatic Stress Disorder Prolonged Doing therapy at [facility]. Childhood trauma Dysplasia of cervix 06/29/2005 Overview: [...] 04/07/2012 01/14/2018 Nausea and vomiting 11/16/2011 01/01/20 Acute diarrhea 11/16/2011 01/01/2023 Hyperemesis gravidarum 11/16/201101/01 [...] automated process. Provider to review and confirm Immunizations Name Administration Dates Next Due DTaP, Unspecified 02/05/2014 Flu, Unspecified 08/29/2012,08/29/2010 [id number] Novel Flu 09/26/2012 HepB 08/13/2000,07/16/2000 HepB, Unspecified [...] 1985 Typhoid Oral 03/16/2005 Yellow Fever 03/16/2005 Social History Tobacco Use Types Packs/Day Years [...] Description 05/09/2024 10:00 AM CDT Office Visit [facility] [address] [place] [address] [place] [address] [place], [place] [phone] Medical Devices Implanted Type Area Hearing Therapy Teacher Device Identifier Shelf Expiration Date Model / Serial / Lot Picc- 1 Implanted:Qty : 1 on 12/24/2020 by Malia Garrett DO Catheter Right: Arm BARD / / [id number] Port- 4 Implanted:Qty : 1 on 03/20/2024 by Seth Santillan MD Port [employer] [id number] / / [id number] Description:8Fr SmartPort Explanted Type Area Hearing Therapy Teacher Device Identifier Shelf Expiration Date Model / Serial / Lot Smart Port-02/04/2024 Implanted:Qty : 1 on 02/04/2024 by Josh Prasad MD Explanted:Qty : 1 on 03/20/2024 by Seth Santillan MD Catheter Right: Chest Wall [employer] [id number] 11/28/2026 / / [id number] Port- 3 Implanted:Qty : 1 on 07/29/2023 by Donavon Quinones MD Explanted:Qty : 1 on 11/12/2023 by Josh Prasad MD Port Left: Chest / / [id number] Description:8 FR power port slim Procedures Procedure [...] Routine: Next available opening 02/04/2024 9:18 AM CHEMICAL ANALYST Poor intravenous access CT CHEST ABDOMEN PELVIS W/O CONTRAST STAT 01/29/2024 11:[address] HEAD W/O CONTRAST STAT 01/29/2024 11:01 PM CHEMICAL ANALYST BASIC METABOLIC PANEL STAT 01/29/2024 10:20 PM CHEMICAL ANALYST EKG 12-LEAD, TRACING ONLY STAT 01/29/2024 9:07 PM CHEMICAL ANALYST HCG QUALITATIVE URINE STAT 01/29/2024 12:00 AM CHEMICAL ANALYST ROUTINE UA WITH MICROSCOPIC REFLEX TO CULTURE STAT 01/29/2024 12:00 AM CHEMICAL ANALYST XR CHEST 2 VIEWS STAT 01/28/2024 10:25 PM CHEMICAL ANALYST INFLUENZA A/B, RSV, & SARS-COV2 PCR STAT 01/28/2024 9:33 PM CHEMICAL ANALYST CBC WITH PLATELETS & DIFFERENTIAL STAT 01/28/2024 6:44 PM CHEMICAL ANALYST EXTRA RED TOP TUBE STAT 01/28/2024 6: 44 PM CHEMICAL ANALYST EXTRA BLUE TOP TUBE STAT 01/28/2024 6 :44 PM CHEMICAL ANALYST CBC WITH PLATELETS AND DIFFERENTIAL STAT 01/28/2024 6:44 PM CHEMICAL ANALYST EXTRA TUBE STAT 01/28/2024 6:44 PM CHEMICAL ANALYST TROPONIN T, HIGH SENSITIVITY STAT 01/28/2024 6:44 PM CHEMICAL ANALYST BASIC METABOLIC PANEL STAT 01/28/2024 6:44 PM CHEMICAL ANALYST EKG 12-LEAD, TRACING ONLY STAT 01/28/2024 5:54 PM CHEMICAL ANALYST XR CLAVICLE RIGHT 2 VIEWS STAT 01/19/2024 2:12 AM CHEMICAL ANALYST XR SHOULDER RIGHT G/E 3 VIEWS STAT 01/19/2024 2:11 AM CHEMICAL ANALYST EKG 12-LEAD, TRACING ONLY STAT 01/18/2024 10:14 PM CHEMICAL ANALYST EXTRA RED TOP TUBE STAT 01/18/2024 4: 49 PM CHEMICAL ANALYST EXTRA TUBE STAT 01/18/2024 4:49 PM CHEMICAL ANALYST CBC WITH PLATELETS & DIFFERENTIAL STAT 01/18/2024 4:47 PM CHEMICAL ANALYST CBC WITH PLATELETS AND DIFFERENTIAL STAT 01/18/2024 4:47 PM CHEMICAL ANALYST BASIC METABOLIC PANEL STAT 01/18/2024 4:47 PM CHEMICAL ANALYST EKG 12-LEAD, TRACING ONLY STAT 01/18/2024 4:26 PM CHEMICAL ANALYST CBC WITH PLATELETS & DIFFERENTIAL STAT 01/15/2024 1:41 AM CHEMICAL ANALYST CBC WITH PLATELETS AND DIFFERENTIAL STAT 01/15/2024 1:41 AM CHEMICAL ANALYST LACTIC ACID WHOLE BLOOD STAT 01/15/2024 1:41 AM CHEMICAL ANALYST LIPASE STAT 01/15/2024 1:41 AM CHEMICAL ANALYST COMPREHENSIVE METABOLIC PANEL STAT 01/15/2024 1:41 AM CHEMICAL ANALYST EKG 12-LEAD, TRACING ONLY STAT 01/14/2024 10:46 PM CHEMICAL ANALYST ISTAT GASES LACTATE VENOUS POCT STAT 01/10/2024 1:57 AM CHEMICAL ANALYST CBC WITH PLATELETS & DIFFERENTIAL STAT 01/10/2024 1:54 AM CHEMICAL ANALYST BLOOD CULTURE STAT 01/10/2024 1:54 AM CHEMICAL ANALYST BLOOD CULTURE STAT 01/10/2024 1:54 AM CHEMICAL ANALYST CBC WITH PLATELETS AND DIFFERENTIAL STAT 01/10/2024 1:54 AM CHEMICAL ANALYST COMPREHENSIVE METABOLIC PANEL STAT 01/10/2024 1:54 AM CHEMICAL ANALYST VERIGENE GP PANEL STAT 01/08/2024 9:0 0 AM CHEMICAL ANALYST BLOOD CULTURE STAT 01/08/2024 9:00 AM CHEMICAL ANALYST BLOOD CULTURE STAT 01/08/2024 6:57 AM CHEMICAL ANALYST URINE CULTURE STAT 01/08/2024 6:34 AM CHEMICAL ANALYST ROUTINE UA WITH MICROSCOPIC REFLEX TO CULTURE STAT 01/08/2024 6:34 AM CHEMICAL ANALYST CBC WITH PLATELETS & DIFFERENTIAL STAT 01/08/2024 4:27 AM CHEMICAL ANALYST CBC WITH PLATELETS AND DIFFERENTIAL STAT 01/08/2024 4:27 AM CHEMICAL ANALYST LIPASE STAT 01/08/2024 4:27 AM CHEMICAL ANALYST TROPONIN T, HIGH SENSITIVITY STAT 01/08/2024 4:27 AM CHEMICAL ANALYST COMPREHENSIVE METABOLIC PANEL STAT 01/08/2024 4:27 AM CHEMICAL ANALYST EKG 12-LEAD, TRACING ONLY STAT 01/08/2024 12:16 AM CHEMICAL ANALYST ROUTINE UA WITH MICROSCOPIC REFLEX TO CULTURE STAT 01/05/2024 11:55 AM CHEMICAL ANALYST AST STAT 01/05/2024 10:[address] ABDOMEN PELVIS W/O CONTRAST STAT 01/05/2024 10:[address] HEAD W/O CONTRAST STAT 01/05/2024 10:05 AM CHEMICAL ANALYST XR KNEE RIGHT 3 VIEWS STAT 01/05/2024 4:41 AM CHEMICAL ANALYST CBC WITH PLATELETS & DIFFERENTIAL STAT 01/05/2024 3:49 AM CHEMICAL ANALYST CBC WITH PLATELETS AND DIFFERENTIAL STAT 01/05/2024 3:49 AM CHEMICAL ANALYST HCG QUALITATIVE STAT 01/05/2024 3:49 AM CHEMICAL ANALYST LIPASE STAT 01/05/2024 3:49 AM CHEMICAL ANALYST COMPREHENSIVE METABOLIC PANEL STAT 01/05/2024 3:49 AM CHEMICAL ANALYST EKG 12-LEAD, TRACING ONLY STAT 01/04/2024 9:[address] CHEST PULMONARY EMBOLISM W CONTRAST STAT 01/01/2024 7:04 PM CHEMICAL ANALYST EKG 12-LEAD, TRACING ONLY STAT 01/01/2024 4:46 PM CHEMICAL ANALYST CBC WITH PLATELETS & DIFFERENTIAL STAT 01/01/2024 4:40 PM CHEMICAL ANALYST CBC WITH PLATELETS AND DIFFERENTIAL STAT 01/01/2024 4:40 PM CHEMICAL ANALYST NT PROBNP INPATIENT STAT 01/01/2024 4 :40 PM CHEMICAL ANALYST MAGNESIUM STAT 01/01/2024 4:40 PM CHEMICAL ANALYST TROPONIN T, HIGH SENSITIVITY STAT 01/01/2024 4:40 PM CHEMICAL ANALYST BASIC METABOLIC PANEL STAT 01/01/2024 4:40 PM CHEMICAL ANALYST PARTIAL THROMBOPLASTIN TIME STAT 01/01/2024 4:40 PM CHEMICAL ANALYST INR STAT 01/01/2024 4:40 PM CHEMICAL ANALYST URINE DRUG SCREEN STAT 05/05/2023 1:4 4 PM CDT LIPID REFLEX TO DIRECT LDL PANEL Routine 01/01/2023 11:43 AM CHEMICAL ANALYST Routine general medical examination at a [facility] care facility [place] DIAGNOSTIC BILATERAL W/ AARON Routine 09/02/2018 8:20 AM CDT Lump or mass in breast ACUTE HEPATITIS PANEL Routine 02/13/2016 10:56 AM CDT HIV 1 AND 2 ANTIBODY (QUEST) STAT 11/24/2012 5:50 PM CHEMICAL ANALYST HCL PAP THIN LAYER DIAGNOSTIC Routine 05/13/2009 [...] MD LAB - BLOOD ORDERABL ES LABORATORY [facility] [address] Lab (1st floor, no room number) [address] * (ABNORMAL) Erythrocyte sedimentation rate auto (03/24/2024 8:27 PM CDT) Only the most recent of4 resultswithin the time period is included. Erythrocyte Sedimentation Rate 45(H) 0 - 20 mm/hr 03/24/2024 8:46 PM CDT [facility] LABORATORY Blood BLOOD SPECIMEN / Unknown Venipuncture / Unknown 03/24/2024 8:27 PM CDT 03/24/2024 8:33 PM CDT Emily Romo MD LAB - BLOOD ORDERABL ES LABORATORY [facility] [address] Lab (1st floor, no room number) [address] * (ABNORMAL) CRP inflammation (03/24/2024 8:27 PM CDT) Only the most recent of4 resultswithin the time period is included. CRP Inflammation 33.81(H) <5.00 mg/L 03/24/2024 9:21 PM CDT [facility] LABORATORY Blood BLOOD SPECIMEN / Unknown Venipuncture / Unknown 03/24/2024 8:27 PM CDT 03/24/2024 8:33 PM CDT Emily Romo MD LAB - BLOOD ORDERABL ES LABORATORY [facility] [address] [facility] Lab (1st floor, no room number) [place] [address] * (ABNORMAL) Basic metabolic panel (BMP) (03/24/2024 8:27 PM CDT) Only the most recent of13 resultswithin the time period is included. Sodium 133(L) 135 - 145 mmol/L 03/24/2024 9:21 PM CDT LABORATORY Comment:Reference intervals for this test were updated on 08/24/2023 to more accurately reflect our healthy population. There may be differences in the flagging of prior results with similar values performed with this method. Interpretation of those prior results can be made in the context of the updated reference intervals. Potassium 4.3 3.4 - 5.3 mmol/L 03/24/2024 9:21 PM CDT LABORATORY Chloride 97(L) 98 - 107 mmol/L 03/24/2024 9:21 PM CDT LABORATORY Carbon Dioxide (CO2) 20(L) 22 - 29 mmol/L 03/24/2024 9:21 PM CDT LABORATORY Anion Gap 16(H) 7 - 15 mmol/L 03/24/2024 9:21 PM CDT LABORATORY Urea Nitrogen 5.9(L) 6.0 - 20.0 mg/dL 03/24/2024 9:21 PM CDT LABORATORY Creatinine 0.68 0.51 - 0.95 mg/dL 03/24/2024 9:21 PM CDT [facility] LABORATORY GFR Estimate >90 >60 mL/min/1. 73m2 03/24/2024 9:21 PM CDT LABORATORY Calcium 8.8 8.6 - 10.0 mg/dL 03/24/2024 9:21 PM CDT LABORATORY Glucose 107(H) 70 - 99 mg/dL 03/24/2024 9:21 PM CDT [facility] LABORATORY Blood BLOOD SPECIMEN / Unknown Venipuncture / Unknown 03/24/2024 8:27 PM CDT 03/24/2024 8:33 PM CDT Emily Romo MD LAB - BLOOD ORDERABL ES [facility] LABORATORY [facility] [address] [facility], no room number) [place] [address] * Asymptomatic Influenza A/B, RSV, & SARS-CoV2 PCR (COVID-19) Nasopharyngeal (03/24/2024 7:14 PM CDT) Only the most recent of3 resultswithin the time period is included. Pathologist [facility] Influenza A PCR Negative Negative 03/24/2024 8:14 PM CDT [facility] LABORATORY Influenza B PCR Negative Negative 03/24/2024 8:14 PM CDT [facility] LABORATORY RSV PCR Negative Negative 03/24/2024 8:14 PM CDT [facility] LABORATORY SARS CoV2 PCR Negative Negative 03/24/2024 8:14 PM CDT [facility] LABORATORY Comment:NEGATIVE: SARS-CoV-2 (COVID-19) RNA not detected, presumed negative. Swab NASOPHARYNGEAL STRUCTURE / Unknown Non-blood Collection / Unknown 03/24/2024 7:14 PM CDT 03/24/2024 7:35 PM CDT Narrative [facility] LABORATORY - 03/24/2024 8:14 PM CDT Testing was performed using the Xpert Xpress CoV2/Flu/RSV Assay on the [employer] GeneXpert Instrument. This test should be ordered [...] management. This test was validated by the [facility]. These laboratories are certified under the Clinical Laboratory Improvement Amendments of 1988 (CLIA-88) as qualified to perform high complexity laboratory testing. Emily Romo MD LAB - MICRO GENERAL ORDERABLES [facility] [address] [facility] Lab (1st floor, no room number) [place] [address] * IR Port Check Right (03/20/2024 4:49 [...] device itself. Narrative 03/20/2024 5:06 PM CDT [facility] LOCATION: [facility] DATE: 03/20/2024 PROCEDURES: 1. PORT DYE STUDY [...] observer. The physician spent 45 minutes of [id number]-gl-xchy sedation time with the patient. CONTRAST: None. ANTIBIOTICS: 2 g of IV Ancef. ADDITIONAL MEDICATIONS: None. FLUOROSCOPIC TIME: 1.3 minutes. RADIATION DOSE: Air Kerma: 18 mGy. COMPLICATIONS: No immediate complications. STERILE BARRIER TECHNIQUE: Maximum sterile barrier technique was used. Cutaneous antisepsis was performed at the operative site with application of 2% chlorhexidine and large sterile drape. Prior to the procedure, the red mud thickener operator and assistant health educator performed hand hygiene and wore hat, mask, [...] Procedure Note Seth Santillan MD - 03/20/2024 [facility] LOCATION: [facility] DATE: 03/20/2024 PROCEDURES: 1. PORT DYE STUDY [...] to Interventional Radiology for evaluation of the [id number] with possible revision if necessary. CONSENT: The [...] trainedobserver. The physician spent 45 minutes of ynpr-hx-gkiw sedation timewith the patient. CONTRAST: None. ANTIBIOTICS: 2 g of IV Ancef. ADDITIONAL MEDICATIONS: None. FLUOROSCOPIC TIME: 1.3 minutes. RADIATION DOSE: Air Kerma: 18 mGy. COMPLICATIONS: No immediate complications. STERILE BARRIER TECHNIQUE: Maximum sterile barrier technique was used.Cutaneous antisepsis was performed at the operative site with applicationof 2% chlorhexidine and large sterile drape. Prior to the procedure, theoperator and assistant health educator performed hand hygiene and wore hat, mask, [...] CDT EXAM: XR CHEST 2 VIEWS LOCATION: [facility] DATE: 03/19/2024 INDICATION: evaluate port COMPARISON: 02/17/2024. Procedure Note Ralph Kapoor MD - 03/19/2024 EXAM: XR CHEST 2 VIEWS LOCATION: [facility] DATE: 03/19/2024 INDICATION: evaluate port COMPARISON: [...] CPT codes included for physician reference only: 86950/79181, 84221/[id number] Narrative 03/23/2024 10:19 PM CDT INTERVENTIONAL NEURORADIOLOGY 03/15/2024 10:09 AM CDT 1. [...] LOSS: Minimal PERFORMING PHYSICIAN(S): Huan Wallis M.D. [facility] PROCEDURE: The patient was placed in [...] made over the pedicle through which a Darren introducer device was advanced until its tip [...] Procedure Note Huan Wallis MD - 03/23/2024 INTERVENTIONAL NEURORADIOLOGY 03/15/2024 10:09 AM CDT 1. [...] LOSS: Minimal PERFORMING PHYSICIAN(S): Huan Wallis M.D. [facility] PROCEDURE: The patient was placed in [...] was made overthe pedicle through which a Darren introducer device was advanced until its tip [...] the procedure. 2. Technically successful fluoroscopically-guided percutaneous [id number] body bone biopsy, with a large core specimen obtained and sentto microbiology for further analysis. 3. See lab results for further details.. CPT codes included for physician reference only: 63979/43892,/ Yin Wolf APRN GEOPHYSICS SCIENTIST IMG IR ORDERABL ES * Tissue Aerobic [...] MICRO GENERA L ORDERABLES [facility] Inf. Diseases Diag. Lab [address] [place] [address] * Anaerobic bacterial culture (03/15/2024 9:57 AM CDT) Only the most recent of2 resultswithin the time period is included. Culture No anaerobic organisms isolated [place] 03/22/2024 8:20 AM CDT [facility] Tissue STRUCTURE OF INTERVERTEBRAL DISC / Unknown Non-blood Collection / Unknown 03/15/2024 9:57 AM CDT 03/15/2024 10:10 AM CDT Gauri Romo NP LAB - MICRO GENERA L ORDERABLES [facility] Inf. Diseases Diag. Lab [address] [place] [address], [facility] * INR (03/15/2024 8:49 AM CDT) Only the most recent of2 resultswithin the time period is included. INR 1.02 0.85 - 1.15 03/15/2024 9:09 AM CDT LABORATORY Blood STRUCTURE OF RIGHT UPPER LIMB / Unknown Venipuncture / Unknown 03/15/2024 8:49 AM CDT 03/15/2024 8:56 AM CDT Gauri Romo NP LAB - BLOOD ORDERA BLES Performing Organization Address City/[facility]/ZIP Co de Phone Number LABORATORY [facility] [address] 1st floor, [address], [place] [address] * Partial thromboplastin time (03/15/2024 8:49 AM CDT) Only the most recent of2 resultswithin the time period is included. aPTT 36 22 - 38 Seconds 03/15/2024 9:09 AM CDT LABORATORY Blood STRUCTURE OF RIGHT UPPER LIMB / Unknown Venipuncture / Unknown 03/15/2024 8:49 AM CDT 03/15/2024 8:56 AM CDT Gauri Romo NP LAB - BLOOD ORDERA BLES LABORATORY [facility] Lab [address] 1st floor, [address] [place] [address], [facility] * (ABNORMAL) CBC with platelets (03/13/2024 1:13 [...] MD LAB - BLOOD ORDERABL ES LABORATORY [facility] [address] Lab (1st floor, no room number) [place] [address], [facility] * CT Abdomen Pelvis w/o Contrast (03/11/2024 [...] EXAM: CT ABDOMEN PELVIS W/O CONTRAST LOCATION: [facility] DATE: 03/11/2024 INDICATION: Bacteremia, assess for focus [...] EXAM: CT ABDOMEN PELVIS W/O CONTRAST LOCATION: [facility] DATE: 03/11/2024 INDICATION: Bacteremia, assess for [...] - 2.0 mmol/L 03/10/2024 9:37 AM CDT [facility] LABORATORY Blood BLOOD SPECIMEN / Unknown IVAD (Port) / Unknown 03/10/2024 9:11 AM CDT 03/10/2024 9:35 AM CDT Masood Amato MD LAB - BLOOD ORDERABL ES LABORATORY [facility] [address] Lab (1st floor, no room number) [place] [address] * (ABNORMAL) UA with Microscopic reflex to Culture (03/09/2024 9:14 PM CDT) Only the most recent of5 resultswithin the time period is included. Color Urine Light Yellow Colorless, Straw, Light Yellow, Yellow 03/09/2024 9:32 PM CDT LABORATORY Appearance Urine Clear Clear 03/09/20 24 9:32 PM CDT LABORATORY Glucose Urine Negative Negative mg/dL 03/09/2024 9:32 PM CDT LABORATORY Bilirubin Urine Negative Negative 9:32 PM CDT RH LABORATORY Ketones Urine Negative Negative mg/dL 03/09/2024 9:32 PM CDT LABORATORY Specific [place] Urine 1.012 1.003 - 1.035 03/09/2024 9:32 PM CDT [facility] LABORAT[facility] Blood Urine Negative Negative 03/09/2024 9:32 PM CDT LABORATORY pH Urine 7.0 5.0 - 7.0 03/09/2024 9:32 PM CDT [facility] LABORATORY Protein Albumin Urine Negative Negative mg/dL 03/09/2024 9:32 PM CDT LABORATORY Urobilinogen Urine Normal Normal, 2.0 mg/dL 03/09/2024 9:32 PM CDT RH LABORATORY Nitrite Urine Negative Negative 03/09/2024 9:32 PM CDT [facility] LABORATORY Leukocyte Esterase Urine Negative Negative 03/09/2024 9:32 PM CDT RH LABORATORY Mucus Urine Present(A) None Seen /LPF 03/09/2024 9:32 PM CDT LABORATORY RBC Urine 1 <=2 /HPF 03/09/2024 [...] Jones MD LAB - URINE ORDERABL ES LABORATORY [facility] [address] Lab (1st floor, no room number) [place] [address] * Blood Culture Hand, Left (03/09/2024 9:37 AM CDT) Only the most recent of13 resultswithin the time period is included. Culture No Growth 03/14/2024 11:17 AM CDT [facility] Blood STRUCTURE OF LEFT HAND / Unknown Venipuncture / Unknown 03/09/2024 9:37 AM CDT 03/09/2024 9:49 AM CDT Sam Jain DO LAB - MICRO GENERAL ORDERABLES [facility] Inf. Diseases Diag. Lab [address] [place] [address] * Prolactin (03/08/2024 5:31 PM CDT) Prolactin 6 5 - 23 ng/mL 03/09/2024 10:55 AM CDT [facility] Blood (Portacath) IVAD (Port) / Unknown 03/08/2024 5:31 PM CDT 03/08/2024 5:45 PM CDT Carlos Vila MD LAB - BLOOD ORDERA BLES [facility] [place] [facility] [address], [address] [place] [address], [facility] * (ABNORMAL) Verigene GN Panel (03/08/2024 2:19 PM CDT) Acinetobacter species Not Detected Not Detected 03/09/2024 [...] MICRO GENERA L ORDERABLES [facility] Inf. Diseases Diag. Lab [address] [place] [address] * (ABNORMAL) Hemoglobin (03/06/2024 10:24 PM CDT) Only the most recent of2 resultswithin the time period is included. Hemoglobin 9.4(L) 11.7 - 15.7 g/dL 03/06/2024 10:34 PM CDT [facility] LABORATORY Blood BLOOD SPECIMEN / Unknown IVAD (Port) / Unknown 03/06/2024 10:24 PM CDT 03/06/2024 10:31 PM CDT Nazario Howard MD LAB - BLOOD ORD ERABLES [facility] LABORATORY [facility] [address] Lab (1st floor, no room number) [place] [address] * Adult Type and Screen (03/06/2024 4:49 PM CDT) ABO/RH(D) O POS 03/06/2024 6:00 AM CDT RH BLOOD BANK Antibody Screen Negative Negative 03/06/2024 6:00 AM CDT RH BLOOD BANK SPECIMEN EXPIRATION DATE [id number] 03/06/2024 6:00 AM CDT RH BLOOD BANK Blood STRUCTURE OF LEFT UPPER LIMB / Unknown Venipuncture / Unknown 03/06/2024 4:49 PM CDT 03/06/2024 5:02 PM CDT Ady Thurston MD LAB - BLOOD BANK TEST ORDER Performing Organization Address [facility]/ZIP Co de Phone Number BLOOD BANK [address] [place] [phone] [place] [address] * Magnesium (03/06/2024 4:49 PM CDT) Only the most recent of3 resultswithin the time period is included. Magnesium 1.7 1.7 - 2.3 mg/dL 03/06/2024 5:25 PM CDT LABORATORY Blood STRUCTURE OF LEFT UPPER LIMB / Unknown Venipuncture / Unknown 03/06/2024 4:49 PM CDT 03/06/2024 5:02 PM CDT Ady Thurston MD LAB - BLOOD ORDE RABLES Performing Organization Address [facility]/ZIP Co de Phone Number [facility] [address] Lab (1st floor, no room number) [address] * Stool: occult blood (03/05/2024 10:14 PM CDT) Pathologist [facility] Occult Blood Negative Negative [place] 03/05/2024 10:26 PM CDT LABORATORY Stool RECTAL CONTENTS / Unknown Non-blood Collection / Unknown 03/05/2024 10:14 PM CDT 03/05/2024 10:21 PM CDT Verito Martínez PA-C LAB - STOOLS ORDERAB LES Performing Organization Address City/[facility]/ZIP Co de Phone Number [facility] [address] Lab (1st floor, no room number) [address] * (ABNORMAL) Hepatic panel (03/05/2024 9:48 PM CDT) Protein Total 7.3 6.4 - 8.3 g/dL [...] LAB - BLOOD ORDERA BLES RH LABORATORY [facility] [address] [facility] Lab (1st floor, no room number) [place] [address], [facility] * (ABNORMAL) Verigene GP Panel (03/02/2024 9:10 [...] Streptococcus pyogenes and Streptococcus agalactiae. Performed using Chanyouji multiplex nucleic acid test. Final identification and [...] 03/03/2024 6:27 PM CDT Specimen tested with ChangeYourFlightigene multiplex, gram-positive blood culture nucleic acid test for the following targets: Staphylococcus aureus, Staphylococcus epidermidis, Staphylococcus lugdunensis, other Staphylococcus species, Enterococcus faecalis, Enterococcus faecium, Streptococcus species, Streptococcus agalactiae, Streptococcus anginosus group, Streptococcus pneumoniae, Streptococcus pyogenes, Listeria species, mecA (methicillin resistance), and Ambrosio/vanB (vancomycin resistance). Kingsley Hartman MD LAB - MICRO GENE RAL ORDERABLES [facility] Inf. Diseases Diag. Lab [address] [place] [address] * MR Lumbar Spine w/o & w [...] LUMBAR SPINE W/O and W CONTRAST LOCATION: [facility] DATE: 03/02/2024 INDICATION: low back pain [...] LUMBAR SPINE W/O and W CONTRAST LOCATION: [facility] DATE: 03/02/2024 INDICATION: low back pain [...] discitisosteomyelitis, recommend follow-up imaging. Janie Arellano MD IMG MRI ORDERABLES * Extra Purple Top Tube (03/02/2024 1:42 PM CDT) [facility] Signature Hold Specimen [facility] 03/02/2024 2:47 PM CDT RH LABORATORY Blood BLOOD SPECIMEN / Unknown Venipuncture / Unknown 03/02/2024 1:42 PM CDT 03/02/2024 1:46 PM CDT Janie Arellano MD LAB - BLOOD ORDERABL ES [facility] Lab [address] Lab (1st floor, no room number) [address] * Extra Green Top ([place] Heparin) Tube (03/02/2024 1:42 PM CDT) Hold Specimen [facility] 03/02/2024 2:47 PM CDT LABORATORY Blood BLOOD SPECIMEN / Unknown Venipuncture / Unknown 03/02/2024 1:42 PM CDT 03/02/2024 1:46 PM CDT Janie Arellano MD LAB - BLOOD ORDERABL ES [facility] [address] Lab (1st floor, no room number) [address] * Extra Red Top Tube (03/02/2024 1:42 PM CDT) Only the most recent of3 resultswithin the time period is included. Hold Specimen [facility] 03/02/2024 2:47 PM CDT RH LABORATORY Blood BLOOD SPECIMEN / Unknown Venipuncture / Unknown 03/02/2024 1:42 PM CDT 03/02/2024 1:46 PM CDT Janie Arellano MD LAB - BLOOD ORDERABL ES Performing Organization Address City/[facility]/ZIP Co de Phone Number [facility] [address] Lab (1st floor, no room number) [place] [phone] [place] [address] * Extra Blue Top Tube (03/02/2024 1:42 PM CDT) Only the most recent of2 resultswithin the time period is included. Hold Specimen [facility] 03/02/2024 2:47 PM CDT LABORATORY Blood BLOOD SPECIMEN / Unknown Venipuncture / Unknown 03/02/2024 1:42 PM CDT 03/02/2024 1:46 PM CDT Janie Arellano MD LAB - BLOOD ORDERABL ES Performing Organization Address City/[facility]/ZIP Co de Phone Number [facility] Lab [address] Lab (1st floor, no room number) [place] [phone] [place] [address] * EKG 12-lead, tracing only (02/17/2024 2:24 PM CDT) Only the most recent of11 resultswithin the time period is included. Systolic Blood Pressure mmHg RADIOLOGY RESULTS Diastolic Blood Pressure mmHg RADIOLOGY RESULTS Ventricular Rate 128 BPM RAD IOLOGY RESULTS Atrial Rate 128 BPM RADIOLOG Y RESULTS ND Interval 152 ms RADIOLOG Y RESULTS QRS Duration 68 ms RADIOLO GY RESULTS QT 290 ms RADIOLOGY RESULTS QTc 423 ms RADIOLOGY RESULTS P [place] 54 degrees RADIOLOGY RESULTS R AXIS 8 degrees RADIOLOGY RESULTS T [place] 21 degrees RADIOLOGY RESULTS Interpretation ECG Sinus [...] Confirmed by - EMERGENCY ROOM, PHYSICIAN ([id number]), acquisitions editor IVELISSE RICKETTS ([id number]) on 02/17/2024 2:34:00 PM RADIOLOGY RESULTS 02/17/2024 [...] XR SHOULDER RIGHT G/E 3 VIEWS LOCATION: [facility] DATE: 02/17/2024 INDICATION: pain after a fall COMPARISON: None. Procedure Note Gabriela Coffman MD, MD - 02/17/2024 EXAM: XR SHOULDER RIGHT G/E 3 VIEWS LOCATION: [facility] DATE: 02/17/2024 INDICATION: pain after a fall COMPARISON: None. IMPRESSION: No visible fracture or dislocation. Kingsley Kimble MD IMG DIAGN OSTIC IMAGING ORDERABLES * XR Hand Port Left G/E 3 Views (02/17/2024 2:48 AM CDT) Anatomical Region Laterality Modality Hand, Left Hand Left Digital Radiogra phy 02/17/2024 2:48 AM CDT Impressions 02/17/2024 2:51 AM CDT IMPRESSION: No visible fracture or dislocation. Narrative 02/17/2024 2:51 AM CDT EXAM: XR HAND PORT LEFT G/E 3 VIEWS LOCATION: [facility] DATE: 02/17/2024 INDICATION: fall, left hand swelling COMPARISON: None. Procedure Note Gabriela Coffman MD, MD - 02/17/2024 EXAM: XR HAND PORT LEFT G/E 3 VIEWS LOCATION: [facility] DATE: 02/17/2024 INDICATION: fall, left hand swelling COMPARISON: None. IMPRESSION: No visible fracture or dislocation. Kingsley Kimble MD IMG DIAGN OSTIC IMAGING ORDERABLES * Troponin T, [...] 1:48 AM CDT 02/17/2024 1:54 AM CDT Kinglsey Kimble MD LAB - BLO OD ORDERABLES LABORATORY [facility] [address] [facility] Lab (1st floor, no room number) [place] [address] * Chest CT w/o contrast (02/07/2024 4:25 [...] CDT EXAM: CT CHEST W/O CONTRAST LOCATION: [facility] DATE: 02/07/2024 INDICATION: chest pain after [...] gallbladder is absent. MUSCULOSKELETAL: Unremarkable. Procedure Note Santy Yanes MD - 02/07/2024 EXAM: CT CHEST W/O CONTRAST LOCATION: [facility] DATE: 02/07/2024 INDICATION: chest pain after [...] CDT EXAM: CT HEAD W/O CONTRAST LOCATION: [facility] DATE: 02/07/2024 INDICATION: head trauma after [...] 02/07/2024 EXAM: CT HEAD W/O CONTRAST LOCATION: [facility] DATE: 02/07/2024 INDICATION: head trauma after [...] 5 Yrs of Age (02/04/2024 9:18 AM CHEMICAL ANALYST) Anatomical Region Laterality Modality Chest Radio Fluoroscop y, Radio Fluoroscopy Impressions 02/04/2024 4:51 PM CHEMICAL ANALYST IMPRESSION: Successful placement of right internal jugular 6 Danish SmartPort and catheter. The port is ready for immediate use. JOSH PRASAD MD Narrative 02/04/2024 4:51 PM CHEMICAL ANALYST PORT PLACEMENT ?? 02/04/2024 9:18 AM INDICATION: [...] Successful placement of right internal jugular 6 Danish SmartPort and catheter. The port is ready for immediate use. JOSH PRASAD MD Segundo Virgen MD IMG IR ORDERABLE S * CT Chest Abdomen Pelvis w/o Contrast (01/29/2024 11:02 PM CHEMICAL ANALYST) Anatomical Region Laterality Modality Abdomen/Pelvis, SUBRAD CT ESSIE DY, UMP CT CHEST, UMP CT ABDOMEN PELVIS, Chest, RAD CT Computed Tomography 01/29/2024 11:0 2 PM CHEMICAL ANALYST Impressions 01/29/2024 11:16 PM CHEMICAL ANALYST IMPRESSION: 1. ??No acute findings in the chest, abdomen and pelvis. 2. ??Scattered 2 to 3 mm pulmonary nodules. Per Fleischner Society 2017 guideline, a one-year follow-up chest CT could be considered if patient is at high risk for lung cancer. Without lung cancer risk factor, no follow-up is necessary. Narrative 01/29/2024 11:16 PM CHEMICAL ANALYST EXAM: CT CHEST ABDOMEN PELVIS W/O CONTRAST LOCATION: [facility] DATE: 01/29/2024 INDICATION: fall, syncope COMPARISON: [...] CT CHEST ABDOMEN PELVIS W/O CONTRAST LOCATION: [facility] DATE: 01/29/2024 INDICATION: fall, syncope COMPARISON: [...] HCG qualitative urine (UPT) (01/29/2024 12:00 AM CHEMICAL ANALYST) hCG Urine Qualitative Negative Negative [facility] 01/29/2024 12:23 AM CHEMICAL ANALYST LABORATORY Comment:This test is for scr eening purposes. Results should be interpreted along with the clinical picture. Confirmation testing is available if warranted by ordering [id number], HCG Quantitative . Urine MID-STREAM URINE SPECIMEN / Unknown Non-blood Collection / Unknown 01/29/2024 12:00 AM CHEMICAL ANALYST 01/29/2024 12:15 AM CHEMICAL ANALYST Seth Farias MD LAB - URINE ORDERABL ES LABORATORY [facility] [address] [facility] Lab (1st floor, no room number) [place] [address], [facility] [phone] * Clavicle XR, right (01/19/2024 2:12 AM CHEMICAL ANALYST) Anatomical Region Laterality Modality Upper Extremity Right Digital Radiogra phy 01/19/2024 2:12 AM CHEMICAL ANALYST Impressions 01/19/2024 2:22 AM CHEMICAL ANALYST IMPRESSION: Normal joint spaces and alignment. No fracture or dislocation. Narrative 01/19/2024 2:22 AM CHEMICAL ANALYST EXAM: XR CLAVICLE RIGHT 2 VIEWS, XR SHOULDER RIGHT G/E 3 VIEWS LOCATION: DATE: 01/19/2024 INDICATION: fall, ??pain COMPARISON: Two-view chest radiograph 12/19/23 Procedure Note Suman Parada MD - 01/19/2024 EXAM: XR CLAVICLE RIGHT 2 VIEWS, XR SHOULDER RIGHT G/E 3 VIEWS LOCATION: DATE: 01/19/2024 INDICATION: fall, pain COMPARISON: Two-view chest radiograph 12/19/23 IMPRESSION: Normal joint spaces and alignment. No fracture ordislocation. Janie Arellano MD IMG DIAGNOSTIC IMAGI NG ORDERABLES * Lipase (01/15/2024 1:41 AM CHEMICAL ANALYST) Only the most recent of3 resultswithin the time period is included. Lipase 53 13 - 60 U/L 01/15/2024 2:12 AM CHEMICAL ANALYST LABORATORY Blood BLOOD SPECIMEN / Unknown Venipuncture / Unknown 01/15/2024 1:41 AM CHEMICAL ANALYST 01/15/2024 1:45 AM CHEMICAL ANALYST Sam Martini MD LAB - BLOOD ORDERAB LES LABORATORY [facility] Lab [address] 1st floor, [address] [place] [address], [facility] [phone] * (ABNORMAL) Comprehensive metabolic panel (01/15/2024 1:41 AM CHEMICAL ANALYST) Only the most recent of4 resultswithin the time period is included. Sodium 134(L) 135 - 145 mmol/L 01/15/2024 2:12 AM [facility] Comment:Reference intervals for this test were updated on 08/24/2023 to more accurately reflect our healthy population. There may be differences in the flagging of prior results with similar values performed with this method. Interpretation of those prior results can be made in the context of the updated reference intervals. Potassium 4.1 3.4 - 5.3 mmol/L 01/15/2024 2:12 AM [facility] Carbon Dioxide (CO2) 23 22 - 29 mmol/L 01/15/2024 2:12 AM [facility] Anion Gap 13 7 - 15 mmol/L 01/15/2024 2:12 AM [facility] Urea Nitrogen 14.3 6.0 - 20.0 mg/dL 01/15/2024 2:12 AM [facility] Creatinine 0.71 0.51 - 0.95 mg/dL 01/15/2024 2:12 AM [facility] GFR Estimate >90 >60 mL/min/1. 73m2 01/15/2024 2:12 AM [facility] Calcium 9.4 8.6 - 10.0 mg/dL 01/15/2024 2:12 AM [facility] Chloride 98 98 - 107 mmol/L 01/15/2024 2:12 AM [facility] Glucose 91 70 - 99 mg/dL 01/15/2024 2:12 AM [facility] Alkaline Phosphatase 321(H) 40 - 150 U/L 01/15/2024 2:12 AM [facility] Comment:Reference intervals for this test were updated on 10/12/2023 to more accurately reflect our healthy population. There may be differences in the flagging of prior results with similar values performed with this method. Interpretation of those prior results can be made in the context of the updated reference intervals. AST 97(H) 0 - 45 U/L 01/15/2024 2:12 AM [facility] Comment:Reference intervals for this test were updated on 05/10/2023 to more accurately reflect our healthy population. There may be differences in the flagging of prior results with similar values performed with this method. Interpretation of those prior results can be made in the context of the updated reference intervals. ALT 149(H) 0 - 50 U/L 01/15/2024 2:12 AM [facility] Comment:Reference intervals for this test were updated on 05/10/2023 to more accurately reflect our healthy population. There may be differences in the flagging of prior results with similar values performed with this method. Interpretation of those prior results can be made in the context of the updated reference intervals. Protein Total 8.7(H) 6.4 - 8.3 g/dL 01/15/2024 2:12 AM [facility] Albumin 4.5 3.5 - 5.2 g/dL 01/15/2024 2:12 AM [facility] Bilirubin Total 0.2 <=1.2 mg/dL 01/15/2024 2:12 AM [facility] Blood BLOOD SPECIMEN / Unknown Venipuncture / Unknown 01/15/2024 1:41 AM [facility] 01/15/2024 1:45 AM [facility] Sam Martini MD LAB - BLOOD ORDERAB LES LABORATORY [facility] Acute [facility] Lab [address] 1st floor, [address] [place] [address], [facility] [phone] * (ABNORMAL) iStat Gases (lactate) venous, POCT (01/10/2024 1:57 AM [facility]) Lactic Acid POCT 1.0 <=2.0 mmol/L 01/10/2024 2:01 AM [facility] POC Bicarbonate Venous POCT 24 21 - 28 mmol/L 01/10/2024 2:01 AM [facility] POC O2 Sat, Venous POCT 49(L) 70 - 75 % 01/10/2024 2:01 AM [facility] POC pCO2 Venous POCT 44 40 - 50 mm Hg 01/10/2024 2:01 AM [facility] POC pH Venous POCT 7.34 7.32 - 7.43 01/10/2024 2:01 AM [facility] POC pO2 Venous POCT 28 25 - 47 mm Hg 01/10/2024 2:01 AM [facility] POC Blood, venous BLOOD SPECIMEN / Unknown 01/10/2024 1:57 AM CHEMICAL ANALYST 01/10/2024 2:01 AM CHEMICAL ANALYST Manpreet Marin MD LAB - BEAKER POCT LABORATORY POC [facility] Lab [address] 1st floor, [address] [place] [address], [place] [phone] * Urine Culture (01/08/2024 6:34 AM CHEMICAL ANALYST) Culture <10,000 CFU/mL Mixture of Urogenital Aiyana 01/09/2024 6:13 AM CHEMICAL ANALYST [facility] Urine MID-STREAM URINE SPECIMEN / Unknown Non-blood Collection / Unknown 01/08/2024 6:34 AM CHEMICAL ANALYST 01/08/2024 7:02 AM CHEMICAL ANALYST Melissa Chavez MD LAB - MICRO GEN ERAL ORDERABLES [facility] Inf. Diseases Diag. Lab [address] [place] [address], [place] [phone] * (ABNORMAL) AST (01/05/2024 10:42 AM CHEMICAL ANALYST) AST 350(H) 0 - 45 U/L 01/05/2024 11:11 AM CHEMICAL ANALYST LABORATORY Blood STRUCTURE OF LEFT UPPER LIMB / Unknown Venipuncture / Unknown 01/05/2024 10:42 AM CHEMICAL ANALYST 01/05/2024 10:46 AM CHEMICAL ANALYST Janie Arellano MD LAB - BLOOD ORDERABL ES LABORATORY [facility] Lab [address] 1st floor, [address] [place] [address], [place] [phone] * XR Knee Right 3 Views (01/05/2024 4:41 AM CHEMICAL ANALYST) Anatomical Region Laterality Modality Thigh, Knee, Leg Right Digital Radiogr aphy 01/05/2024 4:41 AM CHEMICAL ANALYST Impressions 01/05/2024 4:47 AM CHEMICAL ANALYST IMPRESSION: Normal joint spaces and alignment. No fracture or joint effusion. Narrative 01/05/2024 4:47 AM CHEMICAL ANALYST EXAM: XR KNEE RIGHT 3 VIEWS LOCATION: DATE: 01/05/2024 INDICATION: fall, pain COMPARISON: None. Procedure Note Angel Luis Sanchez MD - 01/05/2024 EXAM: XR KNEE RIGHT 3 VIEWS LOCATION: DATE: 01/05/2024 INDICATION: fall, pain COMPARISON: None. IMPRESSION: Normal joint spaces and alignment. No fracture or jointeffusion. Janie Arellano MD IMG DIAGNOSTIC IMAGI NG ORDERABLES * HCG qualitative Blood (01/05/2024 3:49 AM CHEMICAL ANALYST) hCG Serum Qualitative Negative Negative [facility] 01/05/2024 4:25 AM CHEMICAL ANALYST LABORATORY Comment:This test is for scr eening purposes. Results should be interpreted along with the clinical picture. Confirmation testing is available if warranted by ordering [id number], HCG Quantitative . Blood BLOOD SPECIMEN / Unknown Venipuncture / Unknown 01/05/2024 3:49 AM CHEMICAL ANALYST 01/05/2024 4:07 AM CHEMICAL ANALYST Janie Arellano MD LAB - BLOOD ORDERABL ES LABORATORY [facility] Lab [address] 1st floor, [address] [place] [address], [facility] [phone] * CT Chest Pulmonary Embolism w Contrast (01/01/2024 7:04 PM CHEMICAL ANALYST) Anatomical Region Laterality Modality Chest, SUBRAD CT BODY, UMP CT CHEST Computed Tomography 01/01/2024 7:04 PM CHEMICAL ANALYST Impressions 01/01/2024 8:04 PM CHEMICAL ANALYST IMPRESSION: 1. ??Most of the emboli seen on the prior exam have resolved. There remains a small branch embolus posterior segmental pulmonary artery in the right lung base where there was previous PE. No evidence for right heart strain. Narrative 01/01/2024 8:04 PM CHEMICAL ANALYST EXAM: CT CHEST PULMONARY EMBOLISM W CONTRAST LOCATION: [facility] DATE: 01/01/2024 INDICATION: History of PE [...] CT CHEST PULMONARY EMBOLISM W CONTRAST LOCATION: [facility] DATE: 01/01/2024 INDICATION: History of PE [...] evidence for right heartstrain. Luz Cazares DO [facility] CT ORDERABLES * Nt probnp inpatient (BNP) (01/01/2024 4:40 PM CHEMICAL ANALYST) N terminal Pro BNP Inpatient 73 0 - 450 pg/mL 01/01/2024 6:00 PM CHEMICAL ANALYST LABORATORY Comment: Reference range shown and results [...] Unknown Venipuncture / Unknown 01/01/2024 4:40 PM CHEMICAL ANALYST 01/01/2024 5:29 PM CHEMICAL ANALYST Luz Cazares DO LAB - BLOOD ORDERABL ES LABORATORY [facility] Lab [address] Lab (1st floor, no room number) [place] [address], [facility] [phone] * (ABNORMAL) Lipid panel reflex to direct LDL Fasting (01/01/2023 11:43 AM CHEMICAL ANALYST) Cholesterol 294(H) <200 mg/dL 01/01/2023 9:16 PM CHEMICAL ANALYST [facility] Triglycerides 196(H) <150 mg/dL 01/01/2023 9:16 PM CHEMICAL ANALYST [facility] Direct Measure HDL 58 >=50 mg/dL 01/01/2023 9:16 PM CHEMICAL ANALYST [facility] LDL Cholesterol Calculated 197(H) <=100 mg/dL 01/01/2023 9:16 PM CHEMICAL ANALYST [facility] Non HDL Cholesterol 236(H) <130 mg/dL 01/01/2023 9:16 PM CHEMICAL ANALYST [facility] Blood BLOOD SPECIMEN / Unknown Capillary / Unknown 01/01/2023 11:43 AM CHEMICAL ANALYST 01/01/2023 11:57 AM CHEMICAL ANALYST Narrative [facility] - 01/01/2023 9:16 PM CHEMICAL ANALYST Cholesterol Desirable: ??<200 mg/dL Triglycerides Normal: ??Less [...] Virgen MD LAB - BLOOD CIELO LINO U LABORATORY [facility] Lab [address], [address] [phone] [phone] * [place] Diagnostic Bilateral w/Aaron (09/02/2018 8:20 [...] Acute hepatitis panel (02/13/2016 10:56 AM CDT) Hepatitis A Antibody IgM Negative Negative 02/14/2016 9:22 AM CDT [facility] Hepatitis B Core Antibody IgM Negative Negative 02/14/2016 9:22 AM CDT [facility] Hepatitis B Surface Antigen Negative Negative 02/14/2016 9:22 AM CDT [facility] Hepatitis C Antibody Negative Negative 02/14/2016 9:22 AM CDT [facility] Blood specimen (specimen) 02/13/2016 10:56 AM CDT 02/13/2016 11:01 AM CDT Meg Lee MD LAB - BLOOD ORDERABL ES Performing Organization Address City/[facility]/ZIP Co de Phone Number [facility] [address] [address], [facility] [address] [address] * HIV 1 and 2 Antibody (11/24/2012 5:50 PM CHEMICAL ANALYST) Pathologist [facility] HIV 1&2 Antibody Negative NEG [facility] MICROBIOLOGY Blood specimen (specimen) 11/24/2012 5:50 PM CHEMICAL ANALYST 11/24/2012 7:53 PM CHEMICAL ANALYST Crissy Duncan MD LAB - BLOOD ORDERA BLES [facility] MICROBIOLOGY * (ABNORMAL) A THIN LAYER, DIAGNOSTIC PAP (05/13/2009 12:00 AM CDT) PAP LSIL(A) ALDO Ruff Report Patient Name: IVELISSE CONTRERAS MR#: [id number] Specimen #: [id number] Collected: 05/13/2009 Received: 05/14/2009 Reported: 05/16/2009 15:27 [...] Virgilio Rocha M.D. 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 03/08/2024 Advance Directives For more information, please contact: [phone] * Full Code (Latest Code Status on [...] patie nt/ legal decision maker Care Teams Kit Planner Relationship Specialty [place] [address] [place] [address] PCP - General Family Medicine 04/22/23 [place] [address] [place] [address] Assigned Pain Medication Provider 12/07/22 [place] [address] [place] [address] Assigned PCP 01/23/23 [place] [address] [place] [address] Assigned Musculoskeletal Provider 01/23/23 Gregorio Dalton PA-C [address] [address] Assigned Surgical Provider 05/22/23 Kingsley Garcia MD [address] [place] [address] Assigned Heart and Vascular Provider 08/07/23 [place] [address] [place] [address] Family Medicine 09/10/23 Master Shea PA-C [address] [place] [address] Physician Preconstruction Manager Gastroenterology 09/10/23 Allyssa Justice MD [facility] [address] [address] [place] [place] [address] Hematology & Oncology 12/10/23 Genaro Christian MD [address] [place] [address] Cardiovascular Disease 12/22/23 Master Shea PA-C [address] [place] [address] Assigned Gastroenterology Provider 12/23/23 Sienna Guillermo DO [address] [place] [address] Physician Cardiovascular Disease 01/18/24 Allyssa Justice MD [facility] [address] [place] [address] [place] [id number] Assigned Cancer Care Provider 03/21/24
--- OUTSIDE RECORDS SUMMARY | 2024-03-25 18:12 | XMS_ITS | Encounter Summary ---
Author Name Unknown Organization [facility] Address [facility] [place] [address] Care Team Providers Care Telemetry Nurse Name Role Phone Segundo Mcclelland MD Unavailable [phone] Segundo Mcclelland MD Unavailable [phone] Qamar Jackson MD Unavailable Segundo Mcclelland MD Primary Care Provider + Gregorio Dalton PA-C Unavailable [phone] Kingsley Garcia MD Unavailable + [phone] Segundo Mcclelland MD Unavailable [phone] Master Shea PA-C Unavailable Allyssa Justice MD Unavailable [phone] Genaro Christian MD Unavailable [phone] Master Shea-Shirley Unavailable Sienna Guillermo DO Unavailable [phone] Allyssa Justice MD Unavailable [phone] Reason for Visit * Reason Comments Cold Symptoms Back Pain Encounter Details Date Type Department Care Team (Late st Contact Info) Description 03/24/2024 5:34 PM CDT - 03/24/2024 10:58 PM CDT [facility] Emergency Dept [address] [place] [address] Emily Rogers MD [facility] [address] [place] [address] Neck pain Discharge Disposition: Home or Self Care Social History Tobacco Use Types Packs/Day Years [...] AM CDT documented as of this encounter Last Filed Vital Signs Vital Sign Reading [...] Mass Index 31.55 03/24/2024 5:33 PM CDT documented in this encounter Discharge Instructions * Discharge Instructions* Emily Rogers MD - 03/24/2024 9:45 PM CDT You were seen in the emergency department for neck pain, reported fevers and chills. You are able to drink fluids here. You did not have a fever here in the emergency department. Your laboratory workup is reassuring against a new infection and we discussed this at length. Please call your primary care doctor for a follow-up. Please also follow-up with ID. Please check your temperature at home, if you develop a temperature greater than 100.4 on thermometer, if you develop neurologic symptoms, please come back to the emergency department. documented in this encounter Medications at Time of Discharge Medication Sig Dispensed Refills Start Date End Date acetaminophen (TYLENOL) 500 MG tablet Take 1,000 mg by mouth every 4 hours as needed for mild pain apixaban ANTICOAGULANT (ELIQUIS) 5 MG tabletIndications:Mult iple subsegmental pulmonary emboli without acute cor pulmonale (H) Take 1 tablet (5 mg) by mouth 2 times daily Hold apixaban till bone biopsy is done. 180 tablet 1 03/13/2024 childrens multivitamin w/iron (FLINTSTONES COMPLETE) chewable tablet Take 1 chew tab by mouth daily Cholecalciferol (VITAMIN D3) 50 MCG (2000 UT) CAPS Take 1 capsule by mouth daily 08/31/2023 diphenhydrAMINE (BENADRYL) 25 MG capsuleIndications:Int ractable nausea and vomiting Take 1 capsule (25 mg) by mouth every 6 hours as needed (nausea) 11/15/2023 EPINEPHrine (ANY BX GENERIC EQUIV) 0.3 MG/0.3ML injection 2-pack Inject 0.3 mLs (0.3 mg) into the muscle once as needed for anaphylaxis 1 each 04/17/2021 ertapenem (INVANZ) 1 GM vialIndications:Bacter emia Inject 1 g into the vein every 24 hours for 37 days Weekly CBC/diff,creat,SGOT, ESR,CRP to Antoinette [phone] fax 370 mL 03/14/2024 04/20/2024 fluconazole (DIFLUCAN) 200 MG tabletIndications:Oste omyelitis, unspecified site, unspecified type (H) Take 1 tablet (200 mg) by mouth three times a week 18 tablet 03/13/2024 folic acid (FOLVITE) 1 MG tablet Take 1 mg by mouth daily gabapentin (NEURONTIN) 800 MG tablet Take 800 mg by mouth 3 times daily HYDROmorphone (DILAUDID) 2 MG tabletIndications:Oste omyelitis, unspecified site, unspecified type (H) Take 2 tablets (4 mg) by mouth every 4 hours as needed for moderate pain for 3 days, THEN 2 tablets (4 mg) every 6 hours as needed for moderate pain for 3 days, THEN 2 tablets (4 mg) 2 times daily as needed for moderate pain. 42 tablet 03/16/2024 03/25/2024 HYDROmorphone (DILAUDID) 4 MG tabletIndications:Oste omyelitis, unspecified site, unspecified type (H) Take 1 tablet (4 mg) by mouth every 6 hours as needed for severe pain 2 tablet 03/23/2024 HYDROmorphone (DILAUDID) 4 MG tabletIndications:Oste omyelitis, unspecified site, unspecified type (H) Take 0.5 tablets (2 mg) by mouth every 6 hours as needed for severe pain 5 tablet 03/21/2024 lactulose (CHRONULAC) 10 GM/15ML solutionIndications:Os teomyelitis, unspecified site, unspecified type (H) Take 15 mLs (10 g) by mouth 2 times daily as needed for constipation 473 mL 03/13/2024 Lidocaine (LIDOCARE) 4 % PatchIndications:Osteo myelitis, unspecified site, unspecified type (H) Place 1 patch onto the skin every 24 hours To prevent lidocaine toxicity, patient should be patch free for 12 hrs daily. 10 patch 03/13/2024 LORazepam (ATIVAN) 1 MG tablet Take 1 mg by mouth every 6 hours as needed for anxiety methocarbamol (ROBAXIN) 500 MG tabletIndications:Oste omyelitis, unspecified site, unspecified type (H) Take 1 tablet (500 mg) by mouth 4 times daily 56 tablet 03/13/2024 naloxone (NARCAN) 4 MG/0.1ML nasal spray [place] 4 mg into one nostril alternating nostrils once as needed for opioid reversal 06/28/2023 zolpidem (AMBIEN) 10 MG tablet Take 10 mg by mouth At Bedtime 12/17/2022 documented as of this encounter ED Notes * Mari Martin RN - 03/24/2024 10:55 PM CDT Pt. Discharged. Port Access still intact. As per pt. She came here with the Port Access and not need to removed due to some medication needed to be given using her port access at home, a home health nurse will come to her house for the medication. Heparin 500 units given. AVS given. * Mari Martin RN - 03/24/2024 10:55 PM CDT Called pt regarding her Port Access to be removed. Pt refused. Pt insist that a nurse will come to her home to give her IV medication. As per pt. She came here in ER with an access from [place] yesterday. * Perlita Pond RN - 03/24/2024 5:31 PM CDT Pt comes in with fever, chills, and back/neck pain. Pt states that she has osteomyelitis in one of her vertebrae in her lower back but that she has a new area of pain in her upper neck right now. Shecomes wrapped up in her blanket. Pt states that her kids have been sick and she thinks she may havecaught that. Triage Assessment (Adult) Row Name 03/24/24 2796 Triage Assessment Airway WDL WDL Respiratory WDL Respiratory WDL WDL Skin Circulation/Temperature WDL Skin Circulation/Temperature WDL WDL Cardiac WDL Cardiac WDL WDL * Emily Rogers MD - 03/24/2024 5:25 PM CDT History Chief Complaint: Cold Symptoms and Back Pain HPI Sandi Lopez is a 38 year old female who presents to the emergency department this evening. Her present concern is worsening of her osteomyelitis and concern for possible infection acquired from her children. They had a cough but no fever, improved at present. She denies any trauma or fall on her neck. She is on antibiotics for osteomyelitis, with her most recent infusion this morning at 1100 AM. She reports that she is experiencing chills, shakes, emesis and congestion in addition to a temperature of 99.8 prior to arrival. She reports neck pain that began following her infusion today.No numbness or tingling ion her arms. She is concerned as she has missed 1.5 doses of her antibiotics previously. She has taken her prescribed Dilaudid and Tylenol 3 hours prior to arrival without relief of her symptoms. She states that she is allergic to ibuprofen. Reports that she took 3500 mg ofTylenol total. Independent Historian: None - Patient Only Review of External Notes: I reviewed the admission from 03/05 - 03/13: Blood culture was positive for ESBL Klebsiella at that time and started on ertapenem. I reviewed the port revision on 03/20/2024 I reviewed the ED visit from yesterday: Patient is requesting a prescription for five 4 mg Dilaudidtablets. Reviewed the taper that started on 03/16, today patient would be tapering to 4 mg twice daily as needed for moderate pain. 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 Low back pain POTS Drug seeking behavior Chronic narcotic use Borderline personality disorder Port in place Physical Exam Patient Vitals for the past 24 hrs: BP Temp Temp src Pulse Resp SpO2 Height Weight 03/24/242007 98/60 98.1 ??F (36.7 ??C) Oral 72 20 96 % -- -- 03/24/24 1800 (!) 119/91 99.2 ??F (37.3 ??C) Oral 109 -- -- -- -- 03/24/24 1733 109/75 99.5 ??F (37.5 ??C) Temporal 116 16 100 % 1.676 m (5' 6) 88.7 kg (195 lb 8 oz) Physical Exam General: Overall stable and nontoxic appearing, tearful HEENT: Conjunctivae clear, mucous membranes moist, lifts her head completely up to allow me to place pillow underneath Neuro: Alert, conversant; no facial droop, no slurred speech; strength and sensation grossly intactand equal bilaterally in upper and lower extremities, fine motor intact and able to scroll through her phone easily CV: Borderline tachycardic rate, regular rhythm, radial and DP pulses equal Respiratory: No signs of respiratory distress, lungs clear to auscultation bilaterally Abdomen: Soft, without rigidity or rebound throughout MSK: Reports one isolated area of tenderness over C2 however no tenderness to palpation Skin: Port site is clear, no drainage, non-tender to palpation Emergency Department Course Laboratory: Imaging: Labs Ordered and Resulted from Time of ED Arrival to Time of ED Departure ERYTHROCYTE SEDIMENTATION RATE AUTO - Abnormal Result Value Erythrocyte Sedimentation Rate 45 (*) CRP INFLAMMATION - Abnormal CRP Inflammation 33.81 (*) BASIC METABOLIC PANEL - Abnormal Sodium 133 (*) Potassium 4.3 Chloride 97 (*) Carbon Dioxide (CO2) 20 (*) Anion Gap 16 (*) Urea Nitrogen 5.9 (*) Creatinine 0.68 GFR Estimate >90 Calcium 8.8 Glucose 107 (*) CBC WITH PLATELETS AND DIFFERENTIAL - Abnormal WBC Count 8.2 RBC Count 3.59 (*) Hemoglobin 10.1 (*) Hematocrit 31.7 (*) MCV 88 MCH 28.1 MCHC 31.9 RDW 16.0 (*) Platelet Count 376 % Neutrophils 74 % Lymphocytes 18 % Monocytes 8 % Eosinophils 0 % Basophils 0 % Immature Granulocytes 0 NRBCs per 100 WBC 0 Absolute Neutrophils 6.0 Absolute Lymphocytes 1.5 Absolute Monocytes 0.7 Absolute Eosinophils 0.0 Absolute Basophils 0.0 Absolute Immature Granulocytes 0.0 Absolute NRBCs 0.0 INFLUENZA A/B, RSV, & SARS-COV2 PCR - Normal Influenza A PCR Negative Influenza B PCR Negative RSV PCR Negative SARS CoV2 PCR Negative No orders to display Procedures None Emergency Department Course & Assessments: Interventions: Medications HYDROmorphone (DILAUDID) half-tab 1 mg (has no administration in time range) HYDROmorphone (DILAUDID) tablet 2 mg (2 mg Oral $Given 03/24/241854) acetaminophen (TYLENOL) tablet 1,000 mg (1,000 mg Oral $Given 03/24/242037) HYDROmorphone (DILAUDID) tablet 2 mg (2 mg Oral $Given 03/24/242115) Assessments, Independent Interpretation, Consult/Discussion of ManagementTests: ED Course as of 03/24/242242Mar 24, 20241828 I saw the patient for an initial evaluation and exam. 1844 Patient's biopsy results rviewed [address] Jones with ID who is very familiar with the patient. She states that patient'sinitial MR was questionable. Agrees that it would be very unlikely for new osteomyelitis. Would recommend getting an MR if CRP and ESR are elevated from prior. 2121 I reassessed patient. 2218 Spoke with patient on her workup today. She did not want to have any imaging to evaluate for possible fracture therefore I have canceled the CT scan. Social Determinants of Health affecting care: None Disposition: The patient was discharged to home. Impression & Plan [facility] Diagnoses: None Code Status: Prior Medical Decision Makin-year-old female with a complex medical history, currently on ertapenem via outpatient antibioticinfusion, who presents to the emergency department with chief complaint of congestion, neck pain aswell as right chills and fever. Patient afebrile here in the emergency department, with last tylenol reported to be taken 6 hours previously. She reported that her neck pain was isolated to one single point on her neck, was able to completely flex her neck forward to allow me to put a pillow underneath her head, thus I doubt meningitis. Patient's CRP is downtrending significantly from 2 weeks previously and her ESR is consistent with 2 weeks previously, no leukocytosis. I spoke with ID, they stated that it would be highly unlikely for patient to have developed new osteomyelitis, reasonable todefer imaging at this time. I reviewed the bone biopsy obtained on 03/15 no organisms seen on aerobic or anaerobic culture. Additionally, is currently on ertapenem outpatient antibiotic therapy. I reviewed the Dilaudid taper that was prescribed by her primary care provider, it appears that today andtomorrow she is down to 4 mg twice daily. Did give her additional dose here in the ED which improved her pain. I discussed at length the workup here today and the limitations on giving her further Dilaudid. She has taken excellent PO in the ED. I encouraged that she follow-up with her infectious disease team as well as her primary care provider. She will return to the emergency department if she develops a temperature of 100.4 on thermometer, numbness/tingling/weakness in her arms that is new. Diagnosis: ICD-10-CM 1. Neck pain M54.2 Discharge Medications: New Prescriptions No medications on file Scribe Disclosure: I, Demarco Puckett, am serving as a scribe at 6:28 PM on 03/24/2024 to document services personally performed by Emily Rogers MD based on my observations and the provider's statements to me. Emily Rogers MD 03/24/24 9682 documented in this encounter Plan of Treatment Upcoming Encounters Date Type Department Care Team (Late st Contact Info) Description 05/09/2024 10:00 AM CDT Office Visit [facility] [address] [place] [address] [place] [address] [place] [address] documented as of this encounter Procedures Procedure Name Priority Date/Time Associated Diagnosis Comments CBC WITH PLATELETS AND DIFFERENTIAL STAT 03/24/2024 8:27 PM CDT CBC WITH PLATELETS & DIFFERENTIAL STAT 03/24/2024 8:27 PM CDT ERYTHROCYTE SEDIMENTATION RATE AUTO STAT 03/24/2024 8:27 PM CDT CRP INFLAMMATION STAT 03/24/2024 8:27 PM CDT BASIC METABOLIC PANEL STAT 03/24/2024 8:27 PM CDT INFLUENZA A/B, RSV, & SARS-COV2 PCR STAT 03/24/2024 7:14 PM CDT documented in this encounter Results * (ABNORMAL) CBC with platelets and differential (03/24/2024 8:27 PM CDT) Pathologist [facility] WBC Count 8.2 4.0 - 11.0 10e3/uL [...] MD LAB - BLOOD ORDERABL ES LABORATORY [facility] [address] [facility] [facility] Lab (1st floor, no room number) [place] [address], [facility] * (ABNORMAL) Basic metabolic panel (BMP) (03/24/2024 8:27 PM CDT) [facility] Signature Sodium 133(L) 135 - 145 mmol/L 03/24/2024 [...] >60 mL/min/1. 73m2 03/24/2024 9:21 PM CDT [facility] Calcium 8.8 8.6 - 10.0 mg/dL 03/24/2024 9:21 PM CDT [facility] Glucose 107(H) 70 - 99 mg/dL 03/24/2024 9:21 PM CDT [facility] Blood BLOOD SPECIMEN / Unknown Venipuncture / Unknown 03/24/2024 8:27 PM CDT 03/24/2024 8:33 PM CDT Emily Romo MD LAB - BLOOD ORDERABL ES [facility] Lab [address] Lab (1st floor, no room number) [place] [address] * (ABNORMAL) CRP inflammation (03/24/2024 8:27 PM CDT) CRP Inflammation 33.81(H) <5.00 mg/L 03/24/2024 9:21 PM CDT [facility] Blood BLOOD SPECIMEN / Unknown Venipuncture / Unknown 03/24/2024 8:27 PM CDT 03/24/2024 8:33 PM CDT Emily Romo MD LAB - BLOOD ORDERABL ES [facility] Acute Care Lab [address] Lab (1st floor, no room number) [place] [id number] * (ABNORMAL) Erythrocyte sedimentation rate auto (03/24/2024 8:27 PM CDT) Pathologist [facility] Erythrocyte Sedimentation Rate 45(H) 0 - 20 mm/hr 03/24/2024 8:46 PM CDT LABORATORY Blood BLOOD SPECIMEN / Unknown Venipuncture / Unknown 03/24/2024 8:27 PM CDT 03/24/2024 8:33 PM CDT Emily Romo MD LAB - BLOOD ORDERABL ES LABORATORY [facility] [address] [facility] Lab (1st floor, no room number) [address] [place] [address] * Asymptomatic Influenza A/B, RSV, & SARS-CoV2 PCR (COVID-19) Nasopharyngeal (03/24/2024 7:14 PM CDT) [facility] Influenza A PCR Negative Negative 03/24/2024 8:14 PM CDT LABORATORY Influenza B PCR Negative Negative 03/24/2024 8:14 PM CDT LABORATORY RSV PCR Negative Negative 03/24/2024 8:14 PM CDT LABORATORY SARS CoV2 PCR Negative Negative 03/24/2024 8:14 PM CDT LABORATORY Comment:NEGATIVE: SARS-CoV-2 (COVID-19) RNA not detected, presumed negative. Swab NASOPHARYNGEAL STRUCTURE / Unknown Non-blood Collection / Unknown 03/24/2024 7:14 PM CDT 03/24/2024 7:35 PM CDT Narrative [facility] - 03/24/2024 8:14 PM CDT Testing was performed using the Xpert Xpress CoV2/Flu/RSV Assay on the [employer] GeneXpert Instrument. This test should be ordered [...] management. This test was validated by the [facility] N(i)². These laboratories are certified under the Clinical Laboratory Improvement Amendments of 1988 (CLIA-88) as qualified to perform high complexity laboratory testing. Emily Romo MD LAB - MICRO GENERAL ORDERABLES [facility] Acute [facility] Lab [address] [facility] Lab (1st floor, no room number) [place] [address], [facility] documented in this encounter Visit Diagnoses Diagnosis Neck pain Cervicalgia documented in this encounter Administered Medications Inactive Administered Medications - up to 3 most recent administrations Medication Order MAR Action Action Date Dose Rate Site acetaminophen (TYLENOL) tablet 1,000 mg 1,000 mg, Oral, ONCE, On Wed03/24/24 at 2020, For 1 dose, Maximum acetaminophen dose from all sources = 75 mg/kg/day not to exceed 4 gram $Given 03/24/2024 8:38 PM CDT 1,000 mg HYDROmorphone (DILAUDID) half-tab 1 mg 1 mg, Oral, ONCE, On Wed03/24/24 at 2230, For 1 dose $Given 03/24/2024 10:48 PM CDT 1 mg HYDROmorphone (DILAUDID) tablet 2 mg 2 mg, Oral, ONCE, On Wed03/24/24 at 1845, For 1 dose $Given 03/24/2024 6:55 PM CDT 2 mg HYDROmorphone (DILAUDID) tablet 2 mg 2 mg, Oral, ONCE, On Wed03/24/24 at 2115, For 1 dose $Given 03/24/2024 9:16 PM CDT 2 mg documented in this encounter Active and Recently Administered Medications Times are shown in CDT. Scheduled Medication Order 03/22/2024 03/23/2024 03/24/2024 acetaminophen (TYLENOL) tablet 1,000 mg (COMPLETED) 1,000 mg, Oral, ONCE, On Wed03/24/24 at 2020, For 1 dose, Maximum acetaminophen dose from all sources = 75 mg/kg/day not to exceed 4 gram 2037 ($Given - Provi rosita: Mari Martin RN) heparin 100 unit/mL injection 500 Units 500 Units, Intracatheter, ONCE, On Wed03/24/24 at 2245, For 1 dose 2245 (Canceled Entry - Provider: Orders Generic Provider - Comment: Automatically canceled at discontinue of medication order) HYDROmorphone (DILAUDID) half-tab 1 mg (COMPLETED) 1 mg, Oral, ONCE, On Wed03/24/24 at 2230, For 1 dose 2248 ($Given - Provi rosita: Mari Martin RN) HYDROmorphone (DILAUDID) tablet 2 mg (COMPLETED) 2 mg, Oral, ONCE, On Wed03/24/24 at 1845, For 1 dose 1855 ($Given - Provi rosita: Miri Pavon RN) HYDROmorphone (DILAUDID) tablet 2 mg (COMPLETED) 2 mg, Oral, ONCE, On Wed03/24/24 at 2115, For 1 dose 2115 ($Given - Provi roista: Mari Martin RN) 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 Assessment Noted Time PHQ-9 Depression Total Score: 4 02/21/20 24 1:54 PM CDT documented as of this encounter Care Teams Telemetry Nurse Relationship Specialty Start [place] [address] [address] PCP - General Family Medicine 04/22/23 [place] [address] [address] Assigned Pain Medication Provider 12/07/22 [place] [address] [address] [address] Assigned PCP 01/23/23 [place] [address] [address] [address] Assigned Musculoskeletal Provider 01/23/23 Gregorio Dalton PA-C [address] [address] Assigned Surgical Provider 05/22/23 Kingsley Garcia MD [address] [place] [address] Assigned Heart and Vascular Provider 08/07/23 [place] [address] [place] [address] Family Medicine 09/10/23 Master Shea PA-C [address] [place] [address] Physician Farm Equipment Mechanic Apprentice Gastroenterology 09/10/23 Allyssa Justice MD [facility] [address] [address] Hematology & Oncology 12/10/23 Genaro Christian MD [address] [place] [address] [id number] Cardiovascular Disease 12/22/23 Master Shea PA-C [address] [place] [address] Assigned Gastroenterology Provider 12/23/23 Sienna Guillermo DO [address] [place] [address] Physician Cardiovascular Disease 01/18/24 Allyssa Justice MD [facility] [address] [place] [place] [address] Assigned Cancer Care Provider 03/21/24 documented as of this encounter
--- OUTSIDE RECORDS SUMMARY | 2024-03-25 18:13 | XMS_ITS | Encounter Summary ---
Author Name Unknown Organization [place] Address [facility] [place] [address] Care Team Providers Care Supervisor Propellant Charge Loading Name Role Phone Segundo Mcclelland MD Unavailable [phone] Segundo Mcclelland MD Unavailable [phone] Qamar Jackson MD Unavailable Segundo Mcclelland MD Primary Care Provider + Gregorio Dalton PA-C Unavailable [phone] Kingsley Garcia MD Unavailable + [phone] Segundo Mcclelland MD Unavailable +[phone] Master Shea PA-C Unavailable Allyssa Justice MD Unavailable [phone] Genaro Christian MD Unavailable [phone] Master Shea PA-C Unavailable Sienna Guillermo DO Unavailable Reason for Referral * Therapeutic Imaging/IR (Routine) - Closed Specialty Diagnoses / Procedures Referred By Contac t Referred To Contact Radiology. Diagnoses Poor intravenous access Procedures IR Port Check Right Donavon Quinones MD [facility] [address] [place] [address] Referral ID Status Reason Start Date Expiration Date Visits Re quested Visits Authorized [id number] Closed 03/20/2024 03/20/2025 1 1 Encounter Details Date Type Department Care Team ([facility] Contact Info) Description 03/20/2024 Orders Only [facility] Interventional Radiology [address] [phone] Karla Bay, RN Poor intravenous access (Primary Dx) Social History Tobacco Use Types Packs/Day Years [...] Encounters Date Type Department Care Team (Late Contact Info) Description 05/09/2024 10:00 AM CDT Office Visit [facility] [address] [facility] [place] [phone] [place] [address] [address] documented as of this encounter Results * IR Port Check Right (03/20/2024 4:49 [...] device itself. Narrative 03/20/2024 5:06 PM CDT [facility] LOCATION: [facility] DATE: 03/20/2024 PROCEDURES: 1. PORT [...] observer. The physician spent 45 minutes of nbey-pe-qogs sedation time with the patient. CONTRAST: None. ANTIBIOTICS: 2 g of IV Ancef. ADDITIONAL MEDICATIONS: None. FLUOROSCOPIC TIME: 1.3 minutes. RADIATION DOSE: Air Kerma: 18 mGy. COMPLICATIONS: No immediate complications. STERILE BARRIER TECHNIQUE: Maximum sterile barrier technique was used. Cutaneous antisepsis was performed at the operative site with application of 2% chlorhexidine and large sterile drape. Prior to the procedure, the office machine punch operator and information services assistant performed hand hygiene and wore hat, [...] Procedure Note Seth Santillan MD - 03/20/2024 [facility] LOCATION: [facility] DATE: 03/20/2024 PROCEDURES: 1. PORT [...] to Interventional Radiology for evaluation of the mjpfrvktdqAwmz-O-Hmmf with possible revision if necessary. CONSENT: The [...] trainedobserver. The physician spent 45 minutes of nlaf-ph-ryac sedation timewith the patient. CONTRAST: None. ANTIBIOTICS: 2 g of IV Ancef. ADDITIONAL MEDICATIONS: None. FLUOROSCOPIC TIME: 1.3 minutes. RADIATION DOSE: Air Kerma: 18 mGy. COMPLICATIONS: No immediate complications. STERILE BARRIER TECHNIQUE: Maximum sterile barrier technique was used.Cutaneous antisepsis was performed at the operative site with applicationof 2% chlorhexidine and large sterile drape. Prior to the procedure, theoperator and information services assistant performed hand hygiene and wore hat, [...] defect of thedevice itself. Donavon Quinones MD [facility] [place] documented in this encounter Visit Diagnoses Diagnosis Poor intravenous access- Primary Other specified conditions influencing health status Poor intravenous access Other specified conditions influencing health status 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 Assessment Noted Time PHQ-9 Depression Total Score: 4 02/21/20 24 1:54 PM CDT documented as of this encounter Care Teams Supervisor Propellant Charge Loading Relationship Specialty Start [place] [address] [address] [address] PCP - General Family Medicine 04/22/23 [place] [address] [address] [address] Assigned Pain Medication Provider 12/07/22 [place] [address] [address] [address] Assigned PCP 01/23/23 [place] [address] [place] [address] Assigned Musculoskeletal Provider 01/23/23 Gregorio Dalton PA-C [address] [address] Assigned Surgical Provider 05/22/23 Kingsley Garcia MD [address] [place] [address] Assigned Heart and Vascular Provider 08/07/23 [place] [address] [address] [address] Family Medicine 09/10/23 Master Shea PA-C [address] [facility] [place] [address] Physician Sewer Head Gastroenterology 09/10/23 Allyssa Justice MD [facility] [address] [place] [address] Hematology & Oncology 12/10/23 Genaro Christian MD 6 [place], [place] [address] Cardiovascular Disease 12/22/23 Master Shea PA-C [address] [place] [address] Assigned Gastroenterology Provider 12/23/23 Sienna Guillermo DO [address] [place] [address] Physician Cardiovascular Disease 01/18/24 documented as of this encounter
--- OUTSIDE RECORDS SUMMARY | 2024-03-25 18:13 | XMS_ITS | Encounter Summary ---
Author Name Unknown Organization [place] Address [facility] [place] [address] Care Team Providers Care Audiology Technician Name Role Phone Segundo Mcclelland MD Unavailable [phone] Segundo Mcclelland MD Unavailable [phone] Qamar Jackson MD Unavailable Segundo Mcclelland MD Primary Care Provider + Gregorio Dalton PA-C Unavailable [phone] Kingsley Garcia MD Unavailable + [phone] Segundo Mcclelland MD Unavailable [phone] Master Shea PA-C Unavailable Allyssa Justice MD Unavailable [phone] Genaro Christian MD Unavailable + [phone] Master Shea-C Unavailable Sienna Guillermo DO Unavailable [phone] Reason for Visit * Reason Comments Other Entered automaticall y based on patient selection in [employer]. Encounter Details Date Type Department Care Team (Late st Contact Info) Description 03/18/2024 10:05 AM CDT E-Visit [facility] [address] [place] [address] [place] [address] [place] [id number] Other (Entered automatically based on ngozi... Social [...] AM CDT Office Visit [facility] [address] [facility] [place] [address] [place] [address] [place] [address] documented as of this encounter Visit Diagnoses Diagnosis Osteomyelitis, unspecified site, unspecified type (H)- Primary 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 Assessment Noted Time PHQ-9 Depression Total Score: 4 02/21/20 24 1:54 PM CDT documented as of this encounter Care Teams Audiology Technician Relationship Specialty Start [place] [address] [address] [address] PCP - General Family Medicine 04/22/23 [place] [address] [address] [address] Assigned Pain Medication Provider 12/07/22 [place] [address] [address] [address] Assigned PCP 01/23/23 [place] [address] [address] [address] Assigned Musculoskeletal Provider 01/23/23 Gregorio Dalton PA-C [address] [address] Assigned Surgical Provider 05/22/23 Kingsley Garcia MD [address] [place] [address] Assigned Heart and Vascular Provider 08/07/23 [place] [address] [address] [address] Family Medicine 09/10/23 Master Shea PA-C [address] [place] [address] Physician Table Saw Operator Gastroenterology 09/10/23 Allyssa Justice MD [facility] [address] [place] [address] Hematology & Oncology 12/10/23 Genaro Christian MD [address] [place] [address] 690305 Cardiovascular Disease 12/22/23 Master Shea PA-C [address] [place] [address] Assigned Gastroenterology Provider 12/23/23 Sienna Guillermo DO [address] [place] [address] Physician Cardiovascular Disease 01/18/24 documented as of this encounter
--- OUTSIDE RECORDS SUMMARY | 2024-03-25 18:13 | XMS_ITS | Encounter Summary ---
Author Name Unknown Organization [place] Address [facility] [place] [address] Care Team Providers Care Silverware Etcher Name Role Phone Segundo Mcclelland MD Unavailable [phone] Segundo Mcclelland MD Unavailable [phone] Qamar Jackson MD Unavailable Segundo Mcclelland MD Primary Care Provider + Gregorio Dalton PA-C Unavailable [phone] Kingsley Garcia MD Unavailable + [phone] Segundo Mcclelland MD Unavailable [phone] Master Shea PA-C Unavailable Allyssa Justice MD Unavailable [phone] Genaro Christian MD Unavailable [phone] Master Shea-Shirley Unavailable Sienna Guillermo DO Unavailable +[phone] Encounter Details Date Type Department Care Team (Late st Contact Info) Description 03/20/2024 [facility] Interventional Radiology [address] [place] [address] Ugo Knott, RN Social History Tobacco Use Types Packs/Day Years [...] encounter Miscellaneous Notes * Telephone Encounter - Ugo Knott, RN - 03/20/2024 1:08 PM CDT [facility] is requiring a referral for possible port check. Sandi was seen by Dr. Montesinos in the ED. I paged and spoke to him briefly. He asked that Infectious Disease be contacted for IR referral. I messaged Dr. Mcclelland and Sandi contacted her ID clinic for possible referral. Mariama Bay has been following Sandi's issues today as well. She discussed with Dr. Quinones and port check entered. Button Puncher Brayden spoke with patient and she has port check today at 1400 at [facility]. documented in this encounter Plan of Treatment Upcoming Encounters Date Type Department Care Team (Late st Contact Info) Description 05/09/2024 10:00 AM CDT Office Visit [facility] [address] [address] [place] [address] [address] documented as of this encounter Visit Diagnoses Not on file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 Assessment Noted Time PHQ-9 Depression Total Score: 4 02/21/20 1:54 PM CDT documented as of this encounter Care Teams Silverware Etcher Relationship Specialty Start [place] [address] [address] [address] PCP - General Family Medicine 04/22/23 [place] [address] [address] [address] Assigned Pain Medication Provider 12/07/22 [place] [address] [address] [address] Assigned PCP 01/23/23 [place] [address] [address] Assigned Musculoskeletal Provider 01/23/23 Gregorio Dalton PA-C [address] [address] Assigned Surgical Provider 05/22/23 Kingsley Garcia MD [address] [place] [address] Assigned Heart and Vascular Provider 08/07/23 [place] [address] [place] [address] Family Medicine 09/10/23 Master Shea PA-C [address] [place] [address] Physician Modular Home Crew Member Gastroenterology 09/10/23 Allyssa Justice MD [facility] [address] [place] [address] Hematology & Oncology 12/10/23 Genaro Christian MD [address] [place], [place] [address] Cardiovascular Disease 12/22/23 Master Shea PA-C [address] [place] [address] Assigned Gastroenterology Provider 12/23/23 Sienna Guillermo DO [address] [place] [address]12[address] Physician Cardiovascular Disease 01/18/24 documented as of this encounter
--- OUTSIDE RECORDS SUMMARY | 2024-03-25 18:13 | XMS_ITS | Encounter Summary ---
Author Name Unknown Organization [place] Address [facility] [place] [address] Care Team Providers Care Rfp Writer Name Role Phone Segundo Mcclelland MD Unavailable [phone] Segundo Mcclelland MD Unavailable [phone] Qamar Jackson MD Unavailable Segundo Mcclelland MD Primary Care Provider + Gregorio Dalton PA-C Unavailable [phone] Kingsley Garcia MD Unavailable + [phone] Segundo Mcclelland MD Unavailable [phone] Master Shea PA-C Unavailable Allyssa Justice MD Unavailable [phone] Genaro Christian MD Unavailable + [phone] Master Shea-C Unavailable Sienna Guillermo DO Unavailable [phone] Allyssa Justice MD Unavailable [phone] Encounter Details Date Type Department Care Team (Late st Contact Info) Description 03/20/2024 [facility] [address] [place] [address] [place] [address] [place] [address] Social History Tobacco Use Types Packs/Day Years [...] encounter Miscellaneous Notes * Telephone Encounter - Suzanne Wetzel RN - 03/20/2024 1:05 PM CDT The pharmacy is short on Dilaudid 2mg tablets. They need a new prescription from provider for Dilaudid 4mg tablets #5. Will use 2mg tablets when the 4mg tablets are finished and continue to taper off med as previously directed. Suzanne Wetzel RN documented in this encounter Plan of Treatment Upcoming Encounters Date Type Department Care Team (Late st Contact Info) Description 05/09/2024 10:00 AM CDT Office Visit [facility] [address] [address] [place] [address] [address] [address] documented as of this encounter Visit Diagnoses Diagnosis Osteomyelitis, unspecified site, unspecified type (H)- Primary 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 Assessment Noted Time PHQ-9 Depression Total Score: 4 02/21/20 24 1:54 PM CDT documented as of this encounter Care Teams Rfp Writer Relationship Specialty Start [place] [address] [place] [address] PCP - General Family Medicine 04/22/23 [place] [address] [address] [address] Assigned Pain Medication Provider 12/07/22 [place] [address] [address] [address] Assigned PCP 01/23/23 [place] [address] [address] [place] [address] Assigned Musculoskeletal Provider 01/23/23 Gregorio Dalton PA-C [address] [address] Assigned Surgical Provider 05/22/23 Kingsley Garcia MD [address] [place] [address] Assigned Heart and Vascular Provider 08/07/23 [place] [address] [place] [address] Family Medicine 09/10/23 Master Shea PA-C [address] [place] [address] Physician Hair Colorist Gastroenterology 09/10/23 Allyssa Justice MD [facility] [address] [place] [address] Hematology & Oncology 12/10/23 Genaro Christian MD [address] [place] [address] 9430[address] Cardiovascular Disease 12/22/23 Master Shea PA-C [address] [place] [address] Assigned Gastroenterology Provider 12/23/23 Sienna Guillermo DO [address] [place] [address] Physician Cardiovascular Disease 01/18/24 Allyssa Justice MD [facility] [address] [place] [address] Assigned Cancer Care Provider 03/21/24 documented as of this encounter
--- OUTSIDE RECORDS SUMMARY | 2024-03-25 18:13 | XMS_ITS | Encounter Summary ---
Author Name Unknown Organization [place] Address [facility] [place] [address] Care Team Providers Care School Photographs Detailer Name Role Phone Segnudo Mcclelland MD Unavailable [phone] Segundo Mcclelland MD Unavailable [phone] Qamar Jackson MD Unavailable Segundo Mcclelland MD Primary Care Provider + Gregorio Dalton PA-C Unavailable [phone] Kingsley Garcia MD Unavailable + [phone] Segundo Mcclelland MD Unavailable [phone] Master Shea PA-C Unavailable Allyssa Justice MD Unavailable [phone] Genaro Christian MD Unavailable [phone] Master Shea-Shirley Unavailable Sienna Guillermo DO Unavailable [phone] Encounter Details Date Type Department Care Team (Latest Contact Info) Description 03/20/2024 Travel Social History Tobacco Use Types Packs/Day [...] Description 05/09/2024 10:00 AM CDT Office Visit [facility] [address] [place] [address] [place] [address] [id number] documented as of this encounter Visit Diagnoses Not on file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 Assessment Noted Time PHQ-9 Depression Total Score: 4 02/21/20 24 1:54 PM CDT documented as of this encounter Care Teams School Photographs Detailer Relationship Specialty Start [place] [address] [address] [id number] PCP - General Family Medicine 04/22/23 [place] [address] [address] 2152368 Assigned Pain Medication Provider 12/07/22 [place] [address] [address] [address] Assigned PCP 01/23/23 [place] [address] [place] [address] [address] Assigned Musculoskeletal Provider 01/23/23 Gregorio Dalton PA-C [address] [address] Assigned Surgical Provider 05/22/23 Kingsley Garcia MD [address] [place] 875[address] Assigned Heart and Vascular Provider 08/07/23 [place] [address] [address] [address] Family Medicine 09/10/23 Master Shea PA-C [address] [address] Physician Maintenance Mechanic Telephone Gastroenterology 09/10/23 Allyssa Justice MD [facility] [address] [place] [address] Hematology & Oncology 12/10/23 Genaro Christian MD [address] [place], [place] 3478[address] Cardiovascular Disease 12/22/23 Master Shea PA-C [address] 404179 Assigned Gastroenterology Provider 12/23/23 Sienna Guillermo DO [address] [place] [address]390[address] Physician Cardiovascular Disease 01/18/24 documented as of this encounter
--- OUTSIDE RECORDS SUMMARY | 2024-03-25 18:13 | XMS_ITS | Encounter Summary ---
Author Name Unknown Organization [place] Address [facility] [place] [address] Care Team Providers Care Go Go Dancer Name Role Phone Segundo Mcclelland MD Unavailable [phone] Segundo Mcclelland MD Unavailable [phone] Qamar Jackson MD Unavailable Segundo Mcclelland MD Primary Care Provider + Gregorio Dalton PA-C Unavailable +[phone] Kingsley Garcia MD Unavailable + [phone] Segundo Mcclelland MD Unavailable [phone] Master Shea PA-C Unavailable Allyssa Justice MD Unavailable [phone] Genaro Christian MD Unavailable [phone] Master Shea-Shirley Unavailable Sienna Guillermo DO Unavailable Reason for Visit * Reason Onset Date Comments Medication Request 03/16/2024 Encounter Details Date Type Department Care Team (Late st Contact Info) Description 03/16/2024 Telephone [facility] [address] [place] [address] [place] [address] [place] [address] Medication Request Social History Tobacco Use Types Packs/Day [...] Telephone Encounter - Segundo Mcclelland MD - 03/17/2024 3:10 PM CDT Rx appropriate. No change. Segundo Mcclelland MD * Telephone Encounter - Ting Shafer RN - 03/16/2024 4:54 PM CDT Hydromorphone prescription - 2 mg every 4 hours - they are saying I have enough through tomorrow 2 mg every 3 hours - on 03/14 e visit OK, so you got a decent supply. Let's start by having you take 2 mg every 3 hours instead of every 4. Try that for a day or two. If that still isn't cutting it you can go up to 4 mg like you were in the hospital. Patient is completely out - Routing to provider to review and advise and send in new RX. Ting Shafer RN [place] Triage documented in this encounter Plan of Treatment Upcoming Encounters Date Type Department Care Team (Late st Contact Info) Description 05/09/2024 10:00 AM CDT Office Visit [facility] [address] [address] [place] [address] [address] [address] documented as of this encounter Visit Diagnoses Diagnosis Osteomyelitis, unspecified site, unspecified type (H) 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 Assessment Noted Time PHQ-9 Depression Total Score: 4 02/21/20 24 1:54 PM CDT documented as of this encounter Care Teams Go Go Dancer Relationship Specialty Start [place] [address] [address] [address] PCP - General Family Medicine 04/22/23 [place] [address] [address] [address] Assigned Pain Medication Provider 12/07/22 [place] [address] [address] [address] Assigned PCP 01/23/23 [place] [address] [place] [address] Assigned Musculoskeletal Provider 01/23/23 Gregorio Dalton PA-C [address] [place] [address] Assigned Surgical Provider 05/22/23 Kingsley Garcia MD [address] [place] [address] Assigned Heart and Vascular Provider 08/07/23 [place] [address] [place] [address] Family Medicine 09/10/23 Master Shea PA-C [address] [place] [address] Physician Fisher [employer] Net Gastroenterology 09/10/23 Allyssa Justice MD [facility] [address] [place] [address] Hematology & Oncology 12/10/23 Genaro Christian MD [address] [place], [place] 04[address] Cardiovascular Disease 12/22/23 Master Shea PA-C [address] [place] [address] Assigned Gastroenterology Provider 12/23/23 Sienna Guillermo DO [address] [place] [address] Physician Cardiovascular Disease 01/18/24 documented as of this encounter
--- OUTSIDE RECORDS SUMMARY | 2024-03-25 18:13 | XMS_ITS | Encounter Summary ---
Author Name Unknown Organization [place] Address [address] [place] [address] Care Team Providers Care Forensic Structural Engineer Name Role Phone Segundo Mcclelland MD Unavailable [phone] Segundo Mcclelland MD Unavailable [phone] Qamar Jackson MD Unavailable Segundo Mcclelland MD Primary Care Provider + Gregorio Dalton PA-C Unavailable [phone] Kingsley Garcia MD Unavailable + [phone] Segundo Mcclelland MD Unavailable [phone] Master Shea PA-C Unavailable Allyssa Justice MD Unavailable [phone] Genaro Christian MD Unavailable Master Shea-C Unavailable Sienna Guillermo DO Unavailable Encounter Details Date Type Department Care Team (Late st Contact Info) Description 03/20/2024 Telephone [facility] Interventional Radiology [address] [facility] [place] [phone] Ugo Knott, RN Social History Tobacco Use [...] Miscellaneous Notes * Telephone Encounter - Ugo Knott RN - 03/20/2024 11:19 AM CDT Sandi was seen in the ED yesterday for port malfunction. VM left with [facility] IR charge by Dr. Quinones for port check. I spoke with Sandi this morning, she is aware that scheduling is attempting to obtain order for port check. She was disappointed that an order wasn't entered yesterday, but agreeable to plan. documented in this encounter Plan of Treatment Upcoming Encounters Date Type Department Care Team (Late st Contact Info) Description 05/09/2024 10:00 AM CDT Office Visit [facility] [place] [address] [phone] [place] [address] [address] [address] documented as of this encounter Visit Diagnoses Not on file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 Assessment Noted Time PHQ-9 Depression Total Score: 4 02/21/20 24 1:54 PM CDT documented as of this encounter Care Teams Forensic Structural Engineer Relationship Specialty Start [place] [address] [address] [address] PCP - General Family Medicine 04/22/23 [place] [address] [place] [id number] Assigned Pain Medication Provider 12/07/22 [place] [address] [address] [address] Assigned PCP 01/23/23 [place] [address] [address] [address] Assigned Musculoskeletal Provider 01/23/23 Gregorio Dalton PA-C [address] [address] Assigned Surgical Provider 05/22/23 Kingsley Garcia MD [address] [place] [address] Assigned Heart and Vascular Provider 08/07/23 [place] [address] [address] [address] Family Medicine 09/10/23 Master Shea PA-C [address] [place] [address] Physician Nail Polish Brush Machine Feeder Gastroenterology 09/10/23 Allyssa Justice MD [facility] [address] [place] [address] Hematology & Oncology 12/10/23 Genaro Christian MD [address] [place], [place] [address] Cardiovascular Disease 12/22/23 Master Shea PA-C [address] [place] [address] Assigned Gastroenterology Provider 12/23/23 Sienna Guillermo DO [address] [id number] Physician Cardiovascular Disease 01/18/24 documented as of this encounter
--- OUTSIDE RECORDS SUMMARY | 2024-03-25 18:13 | XMS_ITS | Encounter Summary ---
Author Name Unknown Organization [place] Address [facility] [place] [address] Care Team Providers Care Cable Weaver Name Role Phone Segundo Mcclelland MD Unavailable [phone] Segundo Mcclelland MD Unavailable [phone] Qamar Jackson MD Unavailable Segundo Mcclelland MD Primary Care Provider + Gregorio Dalton PA-C Unavailable [phone] Kingsley Garcia MD Unavailable + [phone] Segundo Mcclelland MD Unavailable [phone] Master Shea PA-C Unavailable Allyssa Justice MD Unavailable [phone] Genaro Christian MD Unavailable [phone] Master Shea PA-C Unavailable Sienna Guillermo DO Unavailable Reason for Referral * Therapeutic Imaging/IR (Routine) - Closed Specialty Diagnoses / Procedures Referred By Contac t Referred To Contact Radiology. Diagnoses Poor intravenous access Procedures IR Port Check Right Donavon Quinones MD [facility] [address] [place] [address] Referral ID Status Reason Start Date Expiration Date Visits Re quested Visits Authorized [id number] Closed 03/20/2024 03/20/2025 1 1 Reason for Visit * Therapeutic Imaging/IR (Routine) - Closed Specialty Diagnoses / Procedures Referred By Contac t Referred To Contact Radiology. Diagnoses Poor intravenous access Procedures IR Port Check Right Donavon Quinones MD [facility] [address] [place] [address] Referral ID Status Reason Start Date Expiration Date Visits Re quested Visits Authorized [id number] Closed 03/20/2024 03/20/2025 1 1 Encounter Details Date Type Department Care Team (Late st Contact Info) Description 03/20/2024 1:58 PM CDT - 03/20/2024 11:59 PM CDT Hospital Encounter [facility] Interventional Radiology [address] [place] [address] Donavon Quinones MD [facility] [address] [facility] [address] [place] [address] Seth Santillan MD [facility] [address] [place] [address] Poor intravenous access Discharge Disposition: Home or Self Care Social [...] Sign Reading Time Taken Comments Blood Pressure 115/76 03/20/2024 5:30 PM CDT Pulse 84 03/20/2024 5:30 PM CDT Temperature 36.3 ??C (97.4 ??F) 03/20/2024 5:05 PM CD T Respiratory Rate 18 03/20/2024 5:30 PM CDT Oxygen Saturation 100% 03/20/2024 5:30 PM CDT Inhaled Oxygen Concentration - - Weight - - Height - - Body Mass Index - - documented in this encounter Discharge Instructions * Discharge Instructions* Cecy Shafer RN - 03/20/2024 5:09 PM CDT Port Placement Procedure Discharge Instructions: You had a port placed. A port is a small medical customer service representative that is placed under the skin and is connected to a vein with a catheter (thin, flexible tube). Ports can be used to administer IV medications (including chemotherapy), fluids or blood products or for blood lab draws. Please follow the below instructions after your procedure: Care Instructions: - If you received sedation for your procedure, do not drive or operate heavy machinery for the restof the day. - You may shower beginning tomorrow (post procedure day #1). Do not scrub site until well healed; pat dry gently with a towel. - You likely have skin adhesive over your port site. Skin adhesive works like a bandage to keep thesite covered and protected. Do not use antibiotic ointment or creams/lotions over adhesive as it can break it down. The skin adhesive will peel off on its own (typically in 5-14 days). - Avoid submerging the port site under water (ex: tub baths, Jacuzzis, lakes, hot tubs and pools) for 10 days or until your site is well healed. - You may have some discomfort, minimal swelling, redness and/or bruising at your port site/procedure site. You may take over the counter pain medication for discomfort (follow the package directions) or apply an ice pack wrapped in a towel over the site (rotating 20 minutes with ice pack on and 20minutes with ice pack off) for comfort as needed. It can take several days for these to resolve. - Avoid heavy lifting (greater than 10 pounds) and strenuous activities for 2 days following your procedure. - If you experience significant bleeding at site, apply pressure with hands above the clavicle bone, sit upright and seek immediate medical assistance. - Ports need to be flushed approximately every 4-6 weeks, if not being used more frequently. Followup with the provider who ordered your port placement for further instructions for this. Seek medical evaluation or contact [facility] RN Line at [phone] if you experience the following: - Uncontrolled bleeding from port site - Fever (greater than 101??F (38.3C)) - Purulent (yellow/green/foul smelling) drainage from port insertion site - Increasing pain at port site - Increasing redness at port site documented in this encounter Medications at Time [...] mouth daily Cholecalciferol (VITAMIN D3) 50 MCG (1999 UT) [...] 37 days Weekly CBC/diff,creat,SGOT, ESR,CRP to [facility] [phone] fax 370 mL 03/14/2024 04/20/2024 fluconazole (DIFLUCAN) [...] for moderate pain. 42 tablet 03/16/2024 03/25/2024 lactulose (CHRONULAC) 10 GM/15ML solutionIndications:Os teomyelitis, unspecified [...] 03/13/2024 naloxone (NARCAN) 4 MG/0.1ML nasal spray [place] 4 mg into one nostril alternating nostrils once as needed for opioid reversal 06/28/2023 zolpidem (AMBIEN) 10 MG tablet Take 10 mg by mouth At Bedtime 12/17/2022 documented as of this encounter Progress Notes * Brisa Chapin, CROP GRAIN OR LIVESTOCK FARMER CIRCUS SUPERVISOR - 03/20/2024 2:25 PM CDT Images from the original note were not included. Interventional Radiology - Pre-Procedure Note: Outpatient - [facility] 03/20/2024 Procedure Requested: port check Requested by: Donavon Quinones MD History and Physical Reviewed: H&P documented within 30 days (by DR. Mccurdy on 03/19/24). I have personally reviewed the patient's medical history and have updated the medical record as necessary. Brief HPI: Sandi Lopez is a 38 year old female with a complicated past medical history including POTS requiring central access currently with a port in place as of 02/04/24, multiple episodes of bacteremia and line infections of unclear infectious nidus, chronic back pain with previous lumbardiscectomy for herniation, chronic pain syndrome, anxiety, MDD, borderline personality disorder, gastroparesis, nephrolithiasis, iron deficiency anemia, GERD, obesity, and suspected opiate/benzodiazepine dependence who presents with severe back pain; s/p bone biopsy (cultures negative to date). Patient reports that she occasionally gets skin breakdown from Tegaderm, denies drainage from pinhole along port incision site. Denies fever/chills. Claims that over her port site has changed over the past couple days; seems bigger; now unable to flush and has to come to the ED for antibiotic infusions daily (for osteomyelitis spine). Contrast allergy: tolerates ok with IV benadryl 25mg IMAGING: Narrative & Impression EXAM: XR CHEST 2 VIEWS LOCATION: [facility] DATE: 03/19/2024 INDICATION: evaluate port COMPARISON: 02/17/2024. IMPRESSION: Cardiac silhouette is within normal limits. Right IJ approach port with distal tip projecting at the right atrium. No focal airspace consolidation. No pleural effusion or pneumothorax. PORT PLACEMENT 02/04/2024 9:18 AM INDICATION: Chronic [...] Successful placement of right internal jugular 6 [place] SmartPort and catheter. The port is ready for immediate use. BRADEN GARCIA MD NPO: midnight ANTICOAGULANTS: Eliquis ANTIBIOTICS: ancef if port replacement needed ALLERGIES Allergies Allergen Reactions Chlorhexidine Itching and Swelling Droperidol Swelling seizures, tongue swelling Nsaids Anaphylaxis Sulfa Antibiotics Anaphylaxis SOB, swelling-fingers Compazine [Prochlorperazine] Other (See Comments) Muscle twitching Metoclopramide Other (See Comments) Muscle twitching w IV only; tolerates oral fine Olanzapine Muscle twitching Phenergan [Promethazine] Muscles twitch on own, pt freaks out Phenothiazines Anxiety and Muscle Pain (Myalgia) Dystonic reaction, delirium Venofer [Iron Sucrose] Allergic reaction, nausea, fever Zofran [Ondansetron Hcl] Other (See Comments) Pt does not want to receive. She reports trouble breathing, flushing, itching, long QT Contrast Dye Hives, Itching and Cough Pt can tolerate if given 25 mg benadryl PIV prior to contrast LABS: INR Date Value Ref Range Status 03/15/2024 1.02 0.85 - 1.15 Final 12/23/2020 0.91 0.86 - 1.14 Final Hemoglobin Date Value Ref Range Status 03/13/2024 10.6 (L) 11.7 - 15.7 g/dL Final 05/26/2021 11.2 (L) 11.7 - 15.7 g/dL Final Platelet Count Date Value Ref Range Status 03/13/2024 311 150 - 450 10e3/uL Final 05/26/2021 385 150 - 450 10e9/L Final Creatinine Date Value Ref Range Status 03/12/2024 0.71 0.51 - 0.95 mg/dL Final 05/26/2021 0.77 0.52 - 1.04 mg/dL Final Potassium Date Value Ref Range Status 03/12/2024 4.0 3.4 - 5.3 mmol/L Final 01/08/2022 4.1 3.4 - 5.3 mmol/L Final 05/26/2021 4.3 3.4 - 5.3 mmol/L Final EXAM: BP 118/83 (BP Location: Left arm) Pulse 79 Temp 97.9 ??F (36.6 ??C) (Oral) Resp 22 LMP 12/10/2017 SpO2 99% General: Stable. In no acute distress. Neuro: Alert and oriented x 3. No focal deficits. Psych: Tearful. Linear/coherent thought process. Resp: Normal respirations. Skin: Warm and dry. Without excoriations, ecchymosis, erythema, lesions or open sores on right upper chest; port intact/accessed; pinhole noted over medial part of incision. ASSESSMENT/PLAN: Case reviewed and discussed with IR MD Dr. Santillan and IR staff. Give benadryl 25mg IV prior to contrast administration. Proceed with right side chest port dye study. Procedural education reviewed with patient in detail including, but not limited to risks, benefits and alternatives with understanding verbalized by patient. Total time spent on the date of the encounter: 25 minutes. Brisa Chapin APRN CNP Interventional Radiology documented in this encounter Procedure Notes * Seth Santillan MD - 03/20/2024 5:03 PM CDT Images from the original note were not included. RADIOLOGY POST PROCEDURE NOTE WITH SEDATION Patient name: Sandi Lopez : 1985 RADIOLOGY Pre-procedure diagnosis: Osteomyelitis, nonfunctional port Post-procedure diagnosis: Same Procedure Date/Time: March 20, 2024 5:00 PM Procedure: Port-a-cath revision Estimated blood loss: Minimal Sedation: Moderate sedation was employed. The patient was monitored by a nurse at all times during the procedure under my direct supervision. Specimen(s) collected with description: intact port device with chronic clot INSIDE port reservoir I determined this patient to be an appropriate candidate for the planned sedation and procedure andreassessed the patient IMMEDIATELY PRIOR to sedation and procedure. The patient tolerated the procedure well with no immediate complications. Significant findings: Old port fully clogged within the port reservoir itself. Dissection of explanted port demonstrated chronic appearing thrombus inside the reservoir causing the clogging issue. Successful placement of port-a-cath. Ready for immediate use. See imaging dictation for procedural details. Provider name: Seth Santillan M.D. Wincher(s):None documented in this encounter Miscellaneous Notes * Provider Notification - Cecy Shafer RN - 03/20/2024 5:32 PM CDT Pt. Received and Verbalizes understanding of discharge instructions. Port to be left accessed per Dr. Santillan for pt's daily antibiotics, heparin flush given. Pt. Brought to PACU via wheelchair after sedation recovery complete for observation until her ride arrives from [place]. Report given to Cherise Woods INCOME TAX AUDITOR. * Sedation Documentation - Cecy Shafer RN - 03/20/2024 4:54 PM CDT Patient Name: Sandi Lopez Today's Date: 03/20/2024 Procedure: Port check with port exchange Proceduralist: Dr. Santillan Procedure Start: 1607 Procedure end: 165 Sedation medications administered: 4 mg midazolam and 200 mcg fentanyl Sedation time: 45 minutes Other Notes: Pt arrived to IR room 1 from IR holding. Consent reviewed. Pt denies any questions or concerns regarding procedure. Pt positioned supine and monitored per protocol. Pt tolerated procedure without any noted complications. VSS. Pt transferred back to IR holding. documented in this encounter Plan of Treatment Upcoming Encounters Date Type Department Care Team (Late st Contact Info) Description 05/09/2024 10:00 AM CDT Office Visit [facility] [address] [place] [address] [place] [address] [place] [address] documented as of this encounter Procedures Procedure Name Priority Date/Time Associated Diagnosis Comments IR PORT CHECK RIGHT Routine 03/20/2024 4 :49 PM CDT Poor intravenous access documented in this encounter Results * IR Port Check [...] device itself. Narrative 03/20/2024 5:06 PM CDT [facility] LOCATION: [facility] DATE: 03/20/2024 PROCEDURES: 1. PORT DYE [...] observer. The physician spent 45 minutes of lmnh-id-seqd sedation time with the patient. CONTRAST: None. ANTIBIOTICS: 2 g of IV Ancef. ADDITIONAL MEDICATIONS: None. FLUOROSCOPIC TIME: 1.3 minutes. RADIATION DOSE: Air Kerma: 18 mGy. COMPLICATIONS: No immediate complications. STERILE BARRIER TECHNIQUE: Maximum sterile barrier technique was used. Cutaneous antisepsis was performed at the operative site with application of 2% chlorhexidine and large sterile drape. Prior to the procedure, the plodding machine operator and housekeeper and laundry assistant performed hand hygiene and wore hat, [...] Procedure Note Seth Santillan MD - 03/20/2024 [facility] LOCATION: [facility] DATE: 03/20/2024 PROCEDURES: 1. PORT DYE [...] to Interventional Radiology for evaluation of the [id number]-I-Evea with possible revision if necessary. CONSENT: The [...] trainedobserver. The physician spent 45 minutes of yneb-mp-ogla sedation timewith the patient. CONTRAST: None. ANTIBIOTICS: 2 g of IV Ancef. ADDITIONAL MEDICATIONS: None. FLUOROSCOPIC TIME: 1.3 minutes. RADIATION DOSE: Air Kerma: 18 mGy. COMPLICATIONS: No immediate complications. STERILE BARRIER TECHNIQUE: Maximum sterile barrier technique was used.Cutaneous antisepsis was performed at the operative site with applicationof 2% chlorhexidine and large sterile drape. Prior to the procedure, theoperator and housekeeper and laundry assistant performed hand hygiene and wore hat, [...] Donavon Quinones MD IMG IR ORDERABL ES documented in this encounter Visit Diagnoses Diagnosis Poor intravenous access Other specified conditions influencing health status documented in this encounter Administered Medications Inactive Administered Medications - up to 3 most recent administrations Medication Order MAR Action Action Date Dose Rate Site ceFAZolin Sodium (ANCEF) injection 2 g STEF, 2 g, Intravenous, PRE-OP/PRE-PROCEDURE, Starting on 03/20/24 at 1619, For 1 dose, Indications: Perioperative Pharmacoprophylaxis $Given 03/20/2024 4:20 PM CDT 2 g diphenhydrAMINE (BENADRYL) injection 25 mg 25 mg, Intravenous, ONCE, On Wed03/20/24 at 1500, For 1 dose, Protect from light. $Given 03/20/2024 3:21 PM CDT 50 mg fentaNYL (PF) (SUBLIMAZE) injection 25-50 mcg 25-50 mcg, Intravenous, EVERY 5 MIN PRN, severe pain, If inadequate response may repeat 25 mcg IV slowly every 5 min PRN severe pain; when verbally requested by provider., Administer over 2 Minutes, Starting on Wed03/20/24 at 1629, Doses can be exceeded under direct oversight of patient by physician., IR Intra-procedure $Given 03/20/2024 4:34 PM CDT 50 mcg $Given 03/20/2024 4:29 PM CDT 50 mcg fentaNYL (PF) (SUBLIMAZE) injection Intravenous, PRN, Administer over 3-5 Minutes, Starting on Wed03/20/24 at 1616, Anesthesia Intra-op $Given by Other Clinician 03/20/2024 4:22 PM CDT 50 mcg $Given 03/20/2024 4:16 PM CDT 50 mcg heparin 100 unit/mL injection 5-10 mL 5-10 mL, Intracatheter, EVERY 28 DAYS, First dose on Wed03/20/24 at 1700, To de-access each port in dual implanted port. Flush with 10 mL NS sodium chloride 0.9% flush followed by 5 mL heparin (100 units/mL) at discharge and at least every 28 days. MAX: 5 mL per each port lumen $Given 03/20/2024 4:47 PM CDT 5 mLs HYDROmorphone (DILAUDID) tablet 4 mg 4 mg, Oral, ONCE, On Wed03/20/24 at 1700, For 1 dose, Pt. Is in IR $Given 03/20/2024 5:08 PM CDT 4 mg lidocaine 1% with EPINEPHrine 1:100,000 injection 10 mL 10 mL, Intradermal, ONCE, On Wed03/20/24 at 1630, For 1 dose $Given 03/20/2024 4:25 PM CDT 10 mLs midazolam (VERSED) injection Intravenous, Administer over 2 Minutes, PRN, Starting on Wed03/20/24 at 1616, Anesthesia Intra-op $Given by Other 03/20/2024 4:26 PM CDT 1 mg $Given 03/20/2024 4:22 PM CDT 1 mg $Given 03/20/2024 4:16 PM CDT 2 mg 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 Assessment Noted Time PHQ-9 Depression Total Score: 4 02/21/20 24 1:54 PM CDT documented as of this encounter Care Teams Cable Weaver Relationship Specialty Start [place] [address] [address] [address] PCP - General Family Medicine 04/22/23 [place] [address] [address] [address] Assigned Pain Medication Provider 12/07/22 [place] [address] [address] [address] Assigned PCP 01/23/23 [place] [address] [place] [address] Assigned Musculoskeletal Provider 01/23/23 Gregorio Dalton PA-C [address] [address] Assigned Surgical Provider 05/22/23 Kingsley Garcia MD [address] [place] [address] Assigned Heart and Vascular Provider 08/07/23 [place] [address] [address] [address] Family Medicine 09/10/23 Master Shea PA-C [address] [place] [place] [address] Physician Wincher Gastroenterology 09/10/23 Allyssa Justice MD [facility] [address] [place] [place] [address] Hematology & Oncology 12/10/23 Genaro Christian MD [address] [place] [address] Cardiovascular Disease 12/22/23 Master Shea PA-C [address] [place] [place] [address] Assigned Gastroenterology Provider 12/23/23 Sienna Guillermo DO [address] [place] [address] Physician Cardiovascular Disease 01/18/24 documented as of this encounter
--- OUTSIDE RECORDS SUMMARY | 2024-03-25 18:13 | XMS_ITS | Encounter Summary ---
Author Name Unknown Organization [place] Address Formerly [facility] [place] [address] Care Team Providers Care Digital Engineer Name Role Phone Segundo Mcclelland MD Unavailable [phone] Seugndo Mcclelland MD Unavailable [phone] Qamar Jackson MD Unavailable Segundo Mcclelland MD Primary Care Provider + Gregorio Dalton-Shirley Unavailable [phone] Kingsley Garcia MD Unavailable + [phone] Segundo Mcclelland MD Unavailable [phone] Master Shea PA-C Unavailable Allyssa Justice MD Unavailable [phone] Genaro Christian MD Unavailable + [phone] Master Shea-C Unavailable Sienna Guillermo DO Unavailable [phone] Allyssa Justice MD Unavailable [phone] Reason for Visit * Reason Comments Other Entered automaticall y based on patient selection in [employer]. Encounter Details Date Type Department Care Team (Late st Contact Info) Description 03/21/2024 4:35 AM CDT E-Visit [address] [address] [place] [address] [place] [address] Other (Entered automatically based on ngozi... Social [...] Telephone Encounter - Segundo Mcclelland MD - 03/21/2024 1:29 PM CDT Provider E-Visit time total (minutes): snip snap snout documented in this encounter Plan of Treatment Upcoming Encounters Date Type Department Care Team (Late st Contact Info) Description 05/09/2024 10:00 AM CDT Office Visit [facility] [place] [address] [address] [place] [address] [address] documented as of this encounter Visit Diagnoses Diagnosis Osteomyelitis, unspecified site, unspecified type (H)- Primary 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 Assessment Noted Time PHQ-9 Depression Total Score: 4 02/21/20 24 1:54 PM CDT documented as of this encounter Care Teams Digital Engineer Relationship Specialty Start [place] [address] [address] [address] PCP - General Family Medicine 04/22/23 [place] [address] [place] [address] Assigned Pain Medication Provider 12/07/22 [place] [address] [address] [address] Assigned PCP 01/23/23 [place] [address] [address] [address] [address] Assigned Musculoskeletal Provider 01/23/23 Gregorio Dalton PA-C [address] [address] Assigned Surgical Provider 05/22/23 Kingsley Garcia MD [address] [place] [address] Assigned Heart and Vascular Provider 08/07/23 [place] [address] [place] [address] Family Medicine 09/10/23 Master Shea PA-C [address] [place] [address] Physician Associate Accountant Gastroenterology 09/10/23 Allyssa Justice MD [facility] [address] [place] [address] Hematology & Oncology 12/10/23 Genaro Christian MD [address] [place] [address]3635 Cardiovascular Disease 12/22/23 Master Shea PA-C [address] [address] Assigned Gastroenterology Provider 12/23/23 Sienna Guillermo DO [address] [place] [address] Physician Cardiovascular Disease 01/18/24 Allyssa Justice MD [facility] [address] [place] [address] Assigned Cancer Care Provider 03/21/24 documented as of this encounter
--- OUTSIDE RECORDS SUMMARY | 2024-03-25 18:13 | XMS_ITS | Encounter Summary ---
Author Name Unknown Organization [place] Address Formerly [facility] [place] [address] Care Team Providers Care Employee Relations Administrator Name Role Phone Segundo Mcclelland MD Unavailable [phone] Segundo Mcclelland MD Unavailable [phone] Qamar Jackson MD Unavailable Segundo Mcclelland MD Primary Care Provider + Gregorio Dalton PA-C Unavailable [phone] Kingsley Garcia MD Unavailable + [phone] Segundo Mcclelland MD Unavailable [phone] Master Shea PA-C Unavailable Allyssa Justice MD Unavailable [phone] Genaro Christian MD Unavailable Master Shea-Shirley Unavailable Sienna Guillermo DO Unavailable Reason for Visit * Reason Onset Date Comments Home Infusion 03/17/2024 Encounter Details Date Type Department Care Team (Late st Contact Info) Description 03/17/2024 Telephone [facility] [address] [place] [address] [place] [address] [place] [address] Home Infusion Social History Tobacco Use Types Packs/Day Years [...] encounter Miscellaneous Notes * Telephone Encounter - Kait Rao - 03/20/2024 7:52 AM CDT Faxed. Kait Winters Lead Cardiac Rehabilitation Specialist [facility] * Telephone Encounter - Segundo Mcclelland MD - 03/17/2024 3:07 PM CDT Signed Segundo Mcclelland MD * Telephone Encounter - Kait Rao - 03/17/2024 10:50 AM CDT Rec'd Prescriber Orders from [facility]. Placed in PCP basket for review and signature. . Kait Rao Lead Cardiac Rehabilitation Specialist [facility] * Telephone Encounter - Alanna Kruger RN - 03/17/2024 9:30 AM CDT Incoming call from [facility] with home infusion. -She is calling to get the fax number for Segundo Mcclelland MD's station to fax orders. The IV hydration orders had been previously signed by a provider in [place] (Brittney Jones MD [facility] - looks like she's a hospitalist) that she has been unable to reach. Forwarding to to let station know to look out for the fax. Alanna Kruger RN documented in this encounter Plan of Treatment Upcoming Encounters Date Type Department Care Team (Late st Contact Info) Description 05/09/2024 10:00 AM CDT Office Visit [facility] [address] [facility] [address] [place] [address] [facility] [id number] documented as of this encounter Visit Diagnoses Not on file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 Assessment Noted Time PHQ-9 Depression Total Score: 4 02/21/20 24 1:54 PM CDT documented as of this encounter Care Teams Employee Relations Administrator Relationship Specialty Start [place] [address] [address] [address] PCP - General Family Medicine 04/22/23 [place] [address] [address] [id number] Assigned Pain Medication Provider 12/07/22 [place] [address] [address] [address] Assigned PCP 01/23/23 [place] [address] [place] [address] Assigned Musculoskeletal Provider 01/23/23 Gregorio Dalton PA-C [address] [address] Assigned Surgical Provider 05/22/23 Kingsley Garcia MD [address] [place] [address] Assigned Heart and Vascular Provider 08/07/23 [place] [address] [address] [address] Family Medicine 09/10/23 Master Shea PA-C [address] [place] [address] Physician Proof Carrier Gastroenterology 09/10/23 Allyssa Justice MD [facility] [address] [place] [address] Hematology & Oncology 12/10/23 Genaro Christian MD [address] [place], [place] [address] Cardiovascular Disease 12/22/23 Master Shea PA-C [address] [place] 652499 Assigned Gastroenterology Provider 12/23/23 Sienna Guillermo DO [address] [place] [address] Physician Cardiovascular Disease 01/18/24 documented as of this encounter
--- OUTSIDE RECORDS SUMMARY | 2024-03-25 18:13 | XMS_ITS | Encounter Summary ---
Author Name Unknown Organization [place] Address [address] [place] [address] Care Team Providers Care Network Operations Center Engineer Name Role Phone Segundo Mcclelland MD Unavailable [phone] Segundo Mcclelland MD Unavailable [phone] Qamar Jackson MD Unavailable Segundo Mcclelland MD Primary Care Provider + Gregorio Dalton PA-C Unavailable [phone] Kingsley Garcia MD Unavailable + [phone] Segundo Mcclelland MD Unavailable [phone] Master Shea PA-C Unavailable Allyssa Justice MD Unavailable [phone] Genaro Christian MD Unavailable Master Shea-Shirley Unavailable Sienna Guillermo DO Unavailable Reason for Visit * Reason Comments Vascular Access Problem Encounter Details Date Type Department Care Team (Late st Contact Info) Description 03/19/2024 9:02 AM CDT - 03/19/2024 2:49 PM CDT Emergency [facility] Emergency Dept [address] [place] [address] Luz Cazares DO [facility] [address] [place] [address] Problem with vascular access Discharge Disposition: Home [...] Sign Reading Time Taken Comments Blood Pressure 114/71 03/19/2024 11:00 AM CDT Pulse 90 03/19/2024 11:00 AM CDT Temperature 36.4 ??C (97.5 ??F) 03/19/2024 8:44 AM CD T Respiratory Rate 16 03/19/2024 8:44 AM CDT Oxygen Saturation 100% 03/19/2024 11:30 AM CDT Inhaled Oxygen Concentration - - Weight 88.5 kg (195 lb) 03/19/2024 8:44 AM CDT Height 167.6 cm (5' 6) 03/19/2024 8:44 AM CDT Body Mass Index 31.47 03/19/2024 8:44 AM CDT documented in this encounter Discharge Instructions * Discharge Instructions* Luz Cazares DO - 03/19/2024 1:34 PM CDT You need to follow-up with interventional radiology for a port check. They will be calling you tomorrow to schedule an appointment. Follow-up with your doctor in 1 to 2 days Return to the ER for any worsening or concerning symptoms documented in this encounter Medications at Time [...] for 37 days Weekly CBC/diff,creat,SGOT, ESR,CRP to [facility] [phone] fax 370 mL 03/14/2024 04/20/2024 fluconazole (DIFLUCAN) [...] 03/13/2024 naloxone (NARCAN) 4 MG/0.1ML nasal spray Amidon 4 mg into one nostril alternating nostrils once as needed for opioid reversal 06/28/2023 zolpidem (AMBIEN) 10 MG tablet Take 10 mg by mouth At Bedtime 12/17/2022 documented as of this encounter Progress Notes * Daisy Buck, RN - 03/19/2024 2:25 PM CDT Upon discharging, pt requesting to speak to physician. Requesting to leave IV in on discharge for appt tomorrow. Explained to pt that we are not able to send pts home with PIV access. Pt insists on speaking with MD. MD aware and will speak with pt. * Daisy Buck RN - 03/19/2024 11:30 AM CDT Attempted to access port x 2. Unable to flush or draw from site. aware. documented in this encounter ED Notes * Amy Frey RN - 03/19/2024 8:41 AM CDT HX: Osteomyelitis. Unable to acces her right chest power port for the last day and a a half. Has missed 1.5 doses of ABX. Had a lip hip biopsy on Wednesday. Has been feeling unwell last couple days, tired, in pain and nauseous. Denies fevers. Pt pale. VSS. Triage Assessment (Adult) Row Name 03/19/24 0841 Triage Assessment Airway WDL WDL Respiratory WDL Respiratory WDL WDL Skin Circulation/Temperature WDL Skin Circulation/Temperature WDL WDL Cardiac WDL Cardiac WDL WDL Peripheral/Neurovascular WDL Peripheral Neurovascular WDL WDL Cognitive/Neuro/Behavioral WDL Cognitive/Neuro/Behavioral WDL WDL * Luz Cazares DO - 03/19/2024 8:32 AM CDT History Chief Complaint: Vascular Access Problem HPI Sandi Lopez is a 38 year old female who presents with vascular access problem. The patient has been unable to access her port for the past 1.5 days, and states that she has missed approximately 1.5 doses of her antibiotic. She feels fatigued. She denies fevers. She states that she does havehome care and the port is left accessed. She attempted to flush the line yesterday but was unsuccessful. She Independent Historian: None - Patient Only Review of External Notes: Patient's care plan was reviewed. She has multiple ER visits in the past. Most recently was admitted to the ER had been treated for osteomyelitis and currently on Invanz. Medications: Eliquis Benadryl Epinephrine Neurontin Ativan Protonix Pyridium Ambien Shaun Klonopin Micronor Past Medical History: Anemia Atrial flutter Borderline personality disorder Depressive disorder Drug-seeking behavior Eating disorder GERD Gastroparesis Hypertension Kidney stone Kahtleen-Mustafa tear Mesenteric lymphadenitis Mild persistent asthma Opioid type dependence, continuous POTS Psychogenic nonepileptic seizure PTSD PE Gastric ulcer UTI Past Surgical History: Adenoidectomy Ankle surgery Appendectomy Arthroscopy knee with lateral meniscectomy, left Back surgery Cautery of cervix, cryocautery Cerclage cervical x2 Cholecystectomy Colonoscopy Colposcopy, loop electrd cervix excis Diagnostic pelvic laparoscopy Endoscopic retrograde cholangiopancreatography EGD x6 Hysterectomy vaginal Insert midline Chest port placement PICC placement Port removal left Irrigation and debridement foot, combined, right Laryngoscopy Oophorectomy Talar fracture lt foot surgery Tonsillectomy and adenoidectomy Transesophageal echocardiogram intraoperative Tubal ligation Physical Exam No data found. Physical Exam Vitals reviewed. Constitutional: General: She is not in acute distress. Appearance: She is not ill-appearing. HENT: Head: Normocephalic and atraumatic. Eyes: Extraocular Movements: Extraocular movements intact. Cardiovascular: Rate and Rhythm: Normal rate and regular rhythm. Comments: Port is located to the right upper chest. No overlying erythema, induration or fluctuance. Pulmonary: Effort: Pulmonary effort is normal. No respiratory distress. Musculoskeletal: Cervical back: Normal range of motion. Skin: General: Skin is warm and dry. Neurological: Mental Status: She is alert and oriented to person, place, and time. GCS: GCS eye subscore is 4. GCS verbal subscore is 5. GCS motor subscore is 6. Psychiatric: Behavior: Behavior normal. Emergency Department Course Imaging: XR Chest 2 Views Final Result IMPRESSION: Cardiac silhouette is within normal limits. Right IJ approach port with distal tip projecting at the right atrium. No focal airspace consolidation. No pleural effusion or pneumothorax. Laboratory: Labs Ordered and Resulted from Time of ED Arrival to Time of ED Departure - No data to display Emergency Department Course & Assessments: Interventions: Medications HYDROmorphone (DILAUDID) tablet 2 mg (2 mg Oral $Given 03/19/24 1153) ertapenem (INVanz) 1 g vial to attach to NS 100 mL bag (0 g Intravenous Stopped 03/19/24 1422) HYDROmorphone (DILAUDID) tablet 2 mg (2 mg Oral $Given 03/19/24 1355) Assessments: 0945 I obtained history and examined patient. Independent Interpretation (X-rays, CTs, rhythm strip): Chest x-ray reviewed port appears in place. Consultations/Discussion of Management or Tests: ED Course as of 03/21/24 0952 Sun Mar 19, 20[address] Quinones of the Interventional Radiology service to discuss the patient's findings, presentation, and plan of care. Pt able to have pt scheduled tomorrow for port check. 1148 I rechecked the patient and explained findings. 1200 I rechecked the patient. IV placement attempted. 1435 I discussed with the patient that we cannot send her home with the peripheral IV. Explained toher that there is risk of infiltration, infection. Explained her that we have arranged for IR to doa port check tomorrow. Instructed her to follow-up. Social Determinants of Health affecting care: None Disposition: The patient was discharged. Impression & Plan Medical Decision Makin-year-old female presenting today with port problem. She currently has a port for IV antibiotics for history of osteomyelitis. She states that yesterday she was not able to access the port. Chest x-ray was ordered. Port appears in place. Nurse attempted to access port unable to flush. I discussedthe case with IR they are able to schedule the patient tomorrow for outpatient port check. Discussed plan of care with the patient. Discussed plan for attempt for peripheral IV and IV antibiotics here and then discharged home. She agrees with plan of care. Patient is very difficult access. IV was obtained by nursing staff and she was given antibiotics. She had requested to be sent home with her peripheral IV. I explained to her that we are unable to do that. Discussed risk of infiltration, infection. Explained to her that tomorrow she will have her port checked and she will be able to get herdaily antibiotics tomorrow. I discussed with her care instructions return precautions. She is comfortable plan of care. Diagnosis: ICD-10-CM 1. Problem with vascular access Z78.9 Discharge Medications: Discharge Medication List as of 03/19/2024 2:22 PM Scribe Disclosure: London Sanchez Hired, am serving as a scribe at 9:52 AM on 03/19/2024 to document services personally performed by Luz Cazares DO based on my observations and the provider's statements to me. 03/19/2024 Luz Cazares DO Doan, Tiffani, DO 03/21/24 0954 documented in this encounter Plan of Treatment Upcoming Encounters Date Type Department Care Team (Late st Contact Info) Description 05/09/2024 10:00 AM CDT Office Visit [facility] [address] [place] [address] [place] [address] [place] [address] documented as of this encounter Procedures Procedure Name Priority Date/Time Associated Diagnosis Comments XR CHEST 2 VIEWS STAT 03/19/2024 10:1 7 AM CDT documented in this encounter Results * XR Chest 2 Views (03/19/2024 10:17 AM CDT) Anatomical Region Laterality Modality Chest Digital Radiogra phy 03/19/2024 10:1 7 AM CDT Impressions 03/19/2024 10:36 AM CDT IMPRESSION: Cardiac silhouette is within normal limits. Right IJ approach port with distal tip projecting at the right atrium. No focal airspace consolidation. No pleural effusion or pneumothorax. Narrative 03/19/2024 10:36 AM CDT EXAM: XR CHEST 2 VIEWS LOCATION: [facility] DATE: 03/19/2024 INDICATION: evaluate port COMPARISON: 02/17/2024. Procedure Note Ralph Kapoor MD - 03/19/2024 EXAM: XR CHEST 2 VIEWS LOCATION: [facility] DATE: 03/19/2024 INDICATION: evaluate port COMPARISON: 02/17/2024. IMPRESSION: Cardiac silhouette is within normal limits. Right IJ approachport with distal tip projecting at the right atrium. No focal airspaceconsolidation. No pleural effusion or pneumothorax. Luz Cazares DO [facility] DI[facility]AGI NG ORDERABLES documented in this encounter Visit Diagnoses Diagnosis Problem with vascular access documented in this encounter Administered Medications Inactive Administered Medications - up to 3 most recent administrations Medication Order MAR Action Action Date Dose Rate Site ertapenem (INVanz) 1 g vial to attach to NS 100 mL bag STAT, 1 g, Intravenous, ONCE, On 03/19/24 at 1205, For 1 dose, Infuse over 30 minutes., Indications: Osteomyelitis $New Bag 03/19/2024 1:44 PM CDT 1 g HYDROmorphone (DILAUDID) tablet 2 mg 2 mg, Oral, ONCE, On 03/19/24 at 1150, For 1 dose $Given 03/19/2024 11:53 AM CDT 2 mg HYDROmorphone (DILAUDID) tablet 2 mg 2 mg, Oral, ONCE, On 03/19/24 at 1355, For 1 dose $Given 03/19/2024 1:55 PM CDT 2 mg documented in this encounter Active and Recently Administered Medications Times are shown in CDT. Scheduled Medication Order 03/17/2024 03/18/2024 03/19/2024 ertapenem (INVanz) 1 g vial to attach to NS 100 mL bag (COMPLETED) STAT, 1 g, Intravenous, ONCE, On 03/19/24 at 1205, For 1 dose, Infuse over 30 minutes., Indications: Osteomyelitis 1344 ($New Bag - Pro vider: Daisy Buck RN)1422 (Stopped - Provider: Daisy Buck RN) HYDROmorphone (DILAUDID) tablet 2 mg (COMPLETED) 2 mg, Oral, ONCE, On 03/19/24 at 1150, For 1 dose 1153 ($Given - Provi rosita: Alanna Pearson RN) HYDROmorphone (DILAUDID) tablet 2 mg (COMPLETED) 2 mg, Oral, ONCE, On 03/19/24 at 1355, For 1 dose 1355 ($Given - Provi rosita: Daisy Buck RN) 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 Assessment Noted Time PHQ-9 Depression Total Score: 4 02/21/20 24 1:54 PM CDT documented as of this encounter Care Teams Network Operations Center Engineer Relationship Specialty Start [place] [address] [address] [address] PCP - General Family Medicine 04/22/23 [place] [address] [address] [address] Assigned Pain Medication Provider 12/07/22 [place] [address] [address] [address] Assigned PCP 01/23/23 [place] [address] [address] [place] [address] Assigned Musculoskeletal Provider 01/23/23 Gregorio Dalton PA-C [address] [address] Assigned Surgical Provider 05/22/23 Kingsley Garcia MD [address] [place] [address] Assigned Heart and Vascular Provider 08/07/23 [place] [address] [address] [address] Family Medicine 09/10/23 Master Shea PA-C [address] [place] [address] Physician Marketing Officer Gastroenterology 09/10/23 Allyssa Justice MD [facility] [address] [place] [address] Hematology & Oncology 12/10/23 Genaro Christian MD [address] [place] [address] [id number] Cardiovascular Disease 12/22/23 Master Shea PA-C [address] [place] [address] Assigned Gastroenterology Provider 12/23/23 Sienna Guillermo DO [address] [place] 422765 Physician Cardiovascular Disease 01/18/24 documented as of this encounter
--- OUTSIDE RECORDS SUMMARY | 2024-03-25 18:13 | XMS_ITS | Encounter Summary ---
Author Name Unknown Organization [place] Address [address] [facility] [place] [address] Care Team Providers Care Crystal Flat Grinder Name Role Phone Segundo Mcclelland MD Unavailable [phone] Segundo Mcclelland MD Unavailable Qamar Jackson MD Unavailable Segundo Mcclelland MD Primary Care Provider + Gregorio Dalton PA-C Unavailable [phone] Kingsley Garcia MD Unavailable [phone] Seugndo Mcclelland MD Unavailable [phone] Master Shea PA-C Unavailable Allyssa Justice MD Unavailable [phone] Genaro Christian MD Unavailable Master Shea PA-C Unavailable Sienna Guillermo DO Unavailable [phone] Encounter Details Date Type Department Care Team (Late st Contact Info) Description 03/20/2024 [facility] Only [facility] [address] [place] [address] [place] [address] [place] [address] Poor intravenous access (Primary Dx) Social History [...] Description 05/09/2024 10:00 AM CDT Office Visit [facility] [address] [place] [address] [place] [address] [place] [address] documented as of this encounter Visit Diagnoses Diagnosis Poor intravenous access- Primary Other specified conditions influencing health status 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 Assessment Noted Time PHQ-9 Depression Total Score: 4 02/21/20 24 1:54 PM CDT documented as of this encounter Care Teams Crystal Flat Grinder Relationship Specialty Start [place] [address] [place] [address] PCP - General Family Medicine 04/22/23 [place] [address] [place] [address] Assigned Pain Medication Provider 12/07/22 [place] [address] [place] [address] Assigned PCP 01/23/23 [place] [address] [place] [address] Assigned Musculoskeletal Provider 01/23/23 Gregorio Dalton PA-C [address] [address] Assigned Surgical Provider 05/22/23 Kingsley Garcia MD [address] [place] [address] Assigned Heart and Vascular Provider 08/07/23 [place] [address] [place] [address] Family Medicine 09/10/23 Master Shea PA-C [address] [place] [address] Physician Senior Construction Project Manager Gastroenterology 09/10/23 Allyssa Justice MD [facility] [address] [place] [id number] Hematology & Oncology 12/10/23 Genaro Christian MD [address] [place], [place] [address] Cardiovascular Disease 12/22/23 Master Shea PA-C [address] [place] [address] Assigned Gastroenterology Provider 12/23/23 Sienna Guillermo DO [address] [place] [address]01[address] Physician Cardiovascular Disease 01/18/24 documented as of this encounter
--- OUTSIDE RECORDS SUMMARY | 2024-03-25 18:13 | XMS_ITS | Encounter Summary ---
Author Name Unknown Organization [place] Address [facility] [place] [address] Care Team Providers Care Director Of Materials Name Role Phone Segundo Mcclelland MD Unavailable [phone] Segundo Mcclelland MD Unavailable [phone] Qamar Jackson MD Unavailable Segundo Mcclelland MD Primary Care Provider + Gregorio Dalton PA-C Unavailable [phone] Kingsley Garcia MD Unavailable + [phone] Segundo Mcclelland MD Unavailable [phone] Master Shea PA-C Unavailable Allyssa Justice MD Unavailable [phone] Genaro Christian MD Unavailable [phone] Master Shea-Shirley Unavailable Sienna Guillermo DO Unavailable Reason for Visit * Reason Onset Date Comments Refill Request 03/17/2024 dilaudid Encounter Details Date Type Department Care Team (Late st Contact Info) Description 03/17/[address] [facility] [address] [place] [address] [place] [address] [place] [address] Refill Request (dilaudid) Social History Tobacco Use Types Packs/Day Years [...] encounter Miscellaneous Notes * Telephone Encounter - Jesica Sales - 03/17/2024 4:11 PM CDT Patient is calling back and is requesting dilaudid 4mg with directions to break in half, with quantity of 5. Patient reports pharmacy does have some 4mg left as of now - about 6-10. * Telephone Encounter - Jolie Solomon RN - 03/17/2024 4:06 PM CDT The pharmacy placed orders on Wednesday but they do not know if medication will be in stock by then. Right now they said it will not be in stock Wednesday or Wednesday. Is there an alternative medication that can be sent on Wednesday? Jolie Solomon RN on 03/17/2024 at 4:11 PM * Telephone Encounter - Segundo Mcclelland MD - 03/17/2024 3:08 PM CDT Unless some option exists to allow her to go to another pharmacy I don't see that there are any options. Does the pharmacy have any idea when this should be back in stock? Segundo Mcclelland MD * Telephone Encounter - Jolie Solomon RN - 03/17/2024 1:52 PM CDT Patient calls stating there are issues with dilaudid rx. Patient was only able to fill #32 2mg tablets last night. I spoke to pharmacist to confirm this. Pharmacist states she has no additional strengths of dilaudid in stock and cannot order as they are on back order at this time. Patient states she cannot get through the weekend on #32 tablets. Pharmacist states #32 tablets should last her untilSunday evening. Pt not able to get these filled at a different pharmacy as she is restricted to ve. Please advise. Jolie Solomon RN on 03/17/2024 at 2:14 PM documented in this encounter Plan of Treatment Upcoming Encounters Date Type Department Care Team (Late st Contact Info) Description 05/09/2024 10:00 AM CDT Office Visit [facility] [address] [place] [address] [place] [address] [place] [address] documented as of this encounter Visit Diagnoses Diagnosis Osteomyelitis, unspecified site, unspecified type (H)- Primary 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 Assessment Noted Time PHQ-9 Depression Total Score: 4 02/21/20 24 1:54 PM CDT documented as of this encounter Care Teams Director Of Materials Relationship Specialty Start [place] [address] [address] [address] PCP - General Family Medicine 04/22/23 [place] [address] [address] [address] Assigned Pain Medication Provider 12/07/22 [place] [address] [address] [address] Assigned PCP 01/23/23 [place] [address] [place] [address] Assigned Musculoskeletal Provider 01/23/23 Gregorio Dalton PA-C [address] [address] Assigned Surgical Provider 05/22/23 Kingsley Garcia MD [address] [place] [address] Assigned Heart and Vascular Provider 08/07/23 [place] [address] [address] [address] Family Medicine 09/10/23 Master Shea PA-C [address] [place] [address] Physician Manager Sales Training Gastroenterology 09/10/23 Allyssa Justice MD [facility] [address] [place] [address] [address] Hematology & Oncology 12/10/23 Genaro Christian MD [address] [place] [address] Cardiovascular Disease 12/22/23 Master Shea PA-C [address] [place] [address] Assigned Gastroenterology Provider 12/23/23 Sienna Guillermo DO [address] [place] [address] Physician Cardiovascular Disease 01/18/24 documented as of this encounter
--- OUTSIDE RECORDS SUMMARY | 2024-03-25 18:13 | XMS_ITS | Encounter Summary ---
Author Name Unknown Organization [place] Address [facility] [place] [address] Care Team Providers Care Form Carpenter Name Role Phone Segundo Mcclelland MD Unavailable [phone] Segundo Mcclelland MD Unavailable [phone] Qamar Jackson MD Unavailable Segundo Mcclelland MD Primary Care Provider + Gregorio Dalton PA-C Unavailable [phone] Kingsley Garcia MD Unavailable + [phone] Segundo Mcclelland MD Unavailable [phone] Master Shea PA-C Unavailable Allyssa Justice MD Unavailable [phone] Genaro Christian MD Unavailable [phone] Master Shea-Shirley Unavailable Sienna Guillermo DO Unavailable [phone] Encounter Details Date Type Department Care Team (Latest Contact Info) Description 03/19/2024 Travel Social History Tobacco Use Types Packs/Day [...] Description 05/09/2024 10:00 AM CDT Office Visit [facility] [address] [place] [address] [place] [address] [address] [id number] documented as of this encounter Visit Diagnoses Not on file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 Assessment Noted Time PHQ-9 Depression Total Score: 4 02/21/20 24 1:54 PM CDT documented as of this encounter Care Teams Form Carpenter Relationship Specialty Start [place] [address] [address] [id number] PCP - General Family Medicine 04/22/23 [place] [address] [address] 2727468 Assigned Pain Medication Provider 12/07/22 [place] [address] [address] [address] Assigned PCP 01/23/23 [place] [address] [address] [address] Assigned Musculoskeletal Provider 01/23/23 Gregorio Dalton PA-C [address] [address] Assigned Surgical Provider 05/22/23 Kingsley Garcia MD [address] [place] 056305 Assigned Heart and Vascular Provider 08/07/23 [place] [address] [address] [address] Family Medicine 09/10/23 Master Shea PA-C [address] [place] [address] Physician Setter Cold Rolling Machine Gastroenterology 09/10/23 Allyssa Justice MD [facility] [address] [address] [address] Hematology & Oncology 12/10/23 Genaro Christian MD [address] [place], [place] [address] Cardiovascular Disease 12/22/23 Master Shea PA-C [address] 182569 Assigned Gastroenterology Provider 12/23/23 Sienna Guillermo DO [address] [place] 824075 Physician Cardiovascular Disease 01/18/24 documented as of this encounter
--- OUTSIDE RECORDS SUMMARY | 2024-03-25 18:14 | XMS_ITS | Encounter Summary ---
Author Name Unknown Organization [place] Address [facility] [place] [address] Care Team Providers Care Bark Scaler Name Role Phone Segundo Mcclelland MD Unavailable [phone] Segundo Mcclelland MD Unavailable [phone] Qamar Jackson MD Unavailable Segundo Mcclelland MD Primary Care Provider + Gregorio Dalton PA-C Unavailable [phone] Kingsley Garcia MD Unavailable + [phone] Segundo Mcclelland MD Unavailable [phone] Master Shea PA-C Unavailable Allyssa Justice MD Unavailable [phone] Genaro Christian MD Unavailable + [phone] Master Shea-C Unavailable Sienna Guillermo DO Unavailable [phone] Reason for Visit * Reason Comments Other Entered automaticall y based on patient selection in [facility]. Encounter Details Date Type Department Care Team (Late st Contact Info) Description 03/14/2024 10:30 AM CDT E-Visit [facility] [address] [place] [address] [place] [address] [place] [address] Other (Entered automatically based on ngozi... Social [...] encounter Miscellaneous Notes * Telephone Encounter - Bri Dumas - 03/16/2024 4:23 PM CDT Patient calling back to stress that she will not have enough of the hydromorphone to make it through the night. Please write new prescription and send to the [facility] in [place] * Telephone Encounter - Jesica Sales - 03/16/2024 3:17 PM CDT Patient is calling back and reports that she does not have enough hydromorphone 2mg for tomorrow. Patient reports based off e-visit she should take hydromorphone 4mg every 3 hours as needed. Please send new rx to [facility] in [place]. * Telephone Encounter - Segundo Mcclelland MD - 03/14/2024 1:15 PM CDT Provider E-Visit time total (minutes): alfonso tong documented in this encounter Plan of Treatment Upcoming Encounters Date Type Department Care Team (Late st Contact Info) Description 05/09/2024 10:00 AM CDT Office Visit [facility] [address] [place] [address] [place] [address] [place] 2144368 documented as of this encounter Visit Diagnoses Diagnosis Osteomyelitis, unspecified site, unspecified type (H) 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 Assessment Noted Time PHQ-9 Depression Total Score: 4 02/21/20 24 1:54 PM CDT documented as of this encounter Care Teams Bark Scaler Relationship Specialty Start [place] [address] [address] [address] PCP - General Family Medicine 04/22/23 [place] [address] [address] [address] Assigned Pain Medication Provider 12/07/22 [place] [address] [place] [address] Assigned PCP 01/23/23 [place] [address] [place] [address] Assigned Musculoskeletal Provider 01/23/23 Gregorio Dalton PA-C [address] [place] [address] Assigned Surgical Provider 05/22/23 Kingsley Garcia MD [address] [place] 533565 Assigned Heart and Vascular Provider 08/07/23 [place] [address] [place] [address] Family Medicine 09/10/23 Master Shea PA-C [address] [place] [address] Physician Application Development Intern Gastroenterology 09/10/23 Allyssa Justice MD [facility] [address] [place] [address] Hematology & Oncology 12/10/23 Genaro Christian MD 6 [place], [place] 591485 Cardiovascular Disease 12/22/23 Master Shea PA-C [address] [address] Assigned Gastroenterology Provider 12/23/23 Sienna Guillermo DO [address] [place] [address] Physician Cardiovascular Disease 01/18/24 documented as of this encounter
--- OUTSIDE RECORDS SUMMARY | 2024-03-25 18:14 | XMS_ITS | Encounter Summary ---
Author Name Unknown Organization [place] Address [facility] [place] [address] Care Team Providers Care Spare Parts Clerk Name Role Phone Segundo Mcclelland MD Unavailable [phone] Segundo Mcclelland MD Unavailable [phone] Qamar Jackson MD Unavailable Segundo Mcclelland MD Primary Care Provider + Gregorio Dalton PA-C Unavailable [phone] Kingsley Garcia MD Unavailable + [phone] Segundo Mcclelland MD Unavailable [phone] Master Shea PA-C Unavailable Allyssa Justice MD Unavailable [phone] Genaro Christian MD Unavailable [phone] Master Shea PA-C Unavailable Sienna Guillremo DO Unavailable [phone] Allyssa Justice MD Unavailable [phone] Reason for Referral * Therapeutic Imaging/IR (Routine) - Closed Specialty Diagnoses / Procedures Referred By Contac t Referred To Contact Radiology. Diagnoses Infection of lumbar spine (H) Procedures IR Bone Biopsy Vertebral Yin Wolf APRN COMMUNICATIONS SUPERINTENDENT [facility] [address] [place] [address] Interventional Rad [address] [address] Referral ID Status Reason Start Date Expiration Date Visits Re quested Visits Authorized [id number] Closed 03/14/2024 03/14/2025 1 1 Encounter Details Date Type Department Care Team (Late st Contact Info) Description 03/14/2024 Orders Only [facility] Interventional Radiology [address] [address] Huan Wallis MD [facility] [place] [address] [facility] [place] [address] Infection of lumbar spine (H) (Primary Dx) Social History Tobacco Use Types [...] 10:00 AM CDT Office Visit [facility] [address] [place] [address] [place] [address] [place] [address] documented as of this encounter Results * IR Bone Biopsy Vertebral (03/15/2024 10:09 [...] CPT codes included for physician reference only: 49872/96670, 48268/72359 Narrative 03/23/2024 10:19 PM CDT [facility] 03/15/2024 10:09 AM CDT 1. [...] LOSS: Minimal PERFORMING PHYSICIAN(S): Huan Wallis M.D. [facility] PROCEDURE: The patient was placed in [...] made over the pedicle through which a Accelereach introducer device was advanced until its tip [...] Procedure Note Huan Wallis MD - 03/23/2024 [facility] 03/15/2024 10:09 AM CDT 1. [...] LOSS: Minimal PERFORMING PHYSICIAN(S): Huan Wallis M.D. [facility] PROCEDURE: The patient was placed in [...] was made overthe pedicle through which a Accelereach introducer device was advanced until its tip [...] the procedure. 2. Technically successful fluoroscopically-guided percutaneous [id number] body bone biopsy, with a large core specimen obtained and sentto microbiology for further analysis. 3. See lab results for further details.. 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 Assessment Noted Time PHQ-9 Depression Total Score: 4 02/21/20 1:54 PM CDT documented as of this encounter Care Teams Spare Parts Clerk Relationship Specialty Start [place] [address] [address] [address] PCP - General Family Medicine 04/22/23 [place] [address] [address] [address] Assigned Pain Medication Provider 12/07/22 [place] [address] [address] [address] Assigned PCP 01/23/23 [place] [address] [address] [address] Assigned Musculoskeletal Provider 01/23/23 Gregorio Dalton PA-C [address] [address] Assigned Surgical Provider 05/22/23 Kingsley Garcia MD [address] [place] [address] Assigned Heart and Vascular Provider 08/07/23 [place] [address] [address] [address] Family Medicine 09/10/23 Master Shea PA-C [address] [place] [address] Physician Associate Partner Gastroenterology 09/10/23 Allyssa Justice MD [facility] [address] [place] [address] [address] Hematology & Oncology 12/10/23 Genaro Christian MD [address] [place] [address] Cardiovascular Disease 12/22/23 Master Shea PA-C [address] [place] [address] Assigned Gastroenterology Provider 12/23/23 Sienna Guillermo DO [address] [place] [address] Physician Cardiovascular Disease 01/18/24 Allyssa Justice MD [facility] [address] [place] [address] [address] Assigned Cancer Care Provider 03/21/24 documented as of this encounter
--- OUTSIDE RECORDS SUMMARY | 2024-03-25 18:14 | XMS_ITS | Encounter Summary ---
Author Name Unknown Organization [place] Address [facility] [place] [address] Care Team Providers Care Brewery Worker Name Role Phone Segundo Mcclelland MD Unavailable [phone] Segundo Mcclelland MD Unavailable [phone] Qamar Jackson MD Unavailable Segundo Mcclelland MD Primary Care Provider + Gregorio Dalton PA-C Unavailable [phone] Kingsley Garcia MD Unavailable + [phone] Segundo Mcclelland MD Unavailable [phone] Master Shea PA-C Unavailable Allyssa Justice MD Unavailable [phone] Genaro Christian MD Unavailable Master Shea-Shirley Unavailable Sienna Guillermo DO Unavailable Reason for Visit * Reason Onset Date Comments Orders 03/14/2024 Encounter Details Date Type Department Care Team (Late st Contact Info) Description 03/14/2024 Telephone [facility] [address] [place] [address] [place] [address] [place] [address] Orders Social History Tobacco Use Types Packs/Day Years [...] encounter Miscellaneous Notes * Telephone Encounter - Sienna Wilder RN - 03/14/2024 3:[address] Mcclelland signed the orders. Orders were faxed back to [facility]. * Telephone Encounter - Sienna Wilder RN - 03/14/2024 3:08 PM CDT Called [facility] - received fax - she just needs orders for the flushes. They have orders for an antibiotic per Infectious Disease. Since the pt is restricted, she thought it would be the easiest to have Dr. Mcclelland give the orders for the flushing. Orders placed on Dr. Mcclelland's desk for his signature and date. * Telephone Encounter - Sienna Wilder RN - 03/14/2024 2:44 PM CDT Called [facility] - she is going to fax over orders for Dr. Mcclelland to sign. * Telephone Encounter - Segundo Mcclelland MD - 03/14/2024 2:36 PM CDT Please pend appropriate orders and route back to me to sign. Segundo Mcclelland MD * Telephone Encounter - Danyelle Coker RN - 03/14/2024 1:30 PM CDT [facility] calling from [facility] [phone]. Having trouble getting orders as she is arestricted patient. To have infusion today. Does not have correct order. They will be supplying herwith IV Ertapenem from order from Dr. Curry. They need orders for saline and heparin flushes for before and after medication. There is a generic infusion plan from Dr. Mcclelland that they can use but that would need to be updated to today's date if able. Or can free text order. [facility] does have EPIC access if you are able to put order in. You can call [facility] also if you have any questions. Danyelle Coker RN This encounter was handled by a team outside your facility. If action needs to be taken, please route the encounter back to your team at your own clinic, not the sender. 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 Assessment Noted Time PHQ-9 Depression Total Score: 4 02/21/20 1:54 PM CDT documented as of this encounter Care Teams Brewery Worker Relationship Specialty Start [place] [address] [address] [address] PCP - General Family Medicine 04/22/23 [place] [address] [place] [address] Assigned Pain Medication Provider 12/07/22 [place] [address] [place] [address] Assigned PCP 01/23/23 [place] [address] [address] Assigned Musculoskeletal Provider 01/23/23 Gregorio Dalton PA-C [address] [address] Assigned Surgical Provider 05/22/23 Kingsley Garcia MD [address] [place] [address] Assigned Heart and Vascular Provider 08/07/23 [place] [address] [place] [address] Family Medicine 09/10/23 Master Shea PA-C [address] [place] [address] Physician Pamphlet Distributor Gastroenterology 09/10/23 Allyssa Justice MD [facility] [address] [place] [address] [address] Hematology & Oncology 12/10/23 Genaro Christian MD [address] [place], [place] [address] Cardiovascular Disease 12/22/23 Master Shea PA-C [address] [place] [address] Assigned Gastroenterology Provider 12/23/23 Sienna Guillermo DO [address] [place] [address] Physician Cardiovascular Disease 01/18/24 documented as of this encounter
--- OUTSIDE RECORDS SUMMARY | 2024-03-25 18:14 | XMS_ITS | Encounter Summary ---
Author Name Unknown Organization [address] Address [facility]0 [facility] [place] [address] Care Team Providers Care Transformer Shop Supervisor Name Role Phone Segundo Mcclelland MD Unavailable [phone] Segundo Mcclelland MD Unavailable [phone] Qamar Jackson MD Unavailable Segundo Mcclelland MD Primary Care Provider + Gregorio Dalton PA-C Unavailable [phone] Kingsley Garcia MD Unavailable + [phone] Segundo Mcclelland MD Unavailable [phone] Master Shea PA-C Unavailable Allyssa Justice MD Unavailable [phone] Genaro Christian MD Unavailable [phone] Master Shea-Shirley Unavailable Sienna Guillermo DO Unavailable Reason for Visit * Reason Onset Date Comments Referral 03/14/2024 [facility] - [facility] Encounter Details Date Type Department Care Team (Late st Contact Info) Description 03/14/2024 Telephone [facility] [address] [place] [address] [place] [address] [place] [address] Referral ([facility]) Social History Tobacco Use Types Packs/Day Years [...] * Telephone Encounter - Kait Rao - 03/14/2024 2:02 PM CDT Faxed. Kait Winters Lead Senior Water Resources Engineer eal [place] * Telephone Encounter - Segundo Mcclelland MD - 03/14/2024 1:58 PM CDT Signed Segundo Mcclelland MD * Telephone Encounter - Kait Rao - 03/14/2024 1:58 PM CDT Received call from [employer]. Needing referral before 2-2:30pm today to ensure that patient receives antibiotics. Routing to provider to advise. Kait Rao Lead Senior Water Resources Engineer [facility] [place] * Telephone Encounter - Kait Rao - 03/14/2024 9:28 AM CDT Rec'd [facility] from [facility]. Placed in PCP basket for review and signature. . 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 Assessment Noted Time PHQ-9 Depression Total Score: 4 02/21/20 24 1:54 PM CDT documented as of this encounter Care Teams Transformer Shop Supervisor Relationship Specialty Start [place] [address] [address] PCP - General Family Medicine 04/22/23 [place] [address] [address] Assigned Pain Medication Provider 12/07/22 [place] [address] [place] [place] [id number] Assigned PCP 01/23/23 [place] [address] [place] [address] Assigned Musculoskeletal Provider 01/23/23 Gregorio Dalton PA-C [address] [address] Assigned Surgical Provider 05/22/23 Kingsley Garcia MD [address] [place] [address] Assigned Heart and Vascular Provider 08/07/23 [place] [address] [place] [address] Family Medicine 09/10/23 Master Shea PA-C [address] [place] [place] [address] Physician Stationary Steam Engineer Gastroenterology 09/10/23 Allyssa Justice MD [facility] [address] [address] Hematology & Oncology 12/10/23 Genaro Christian MD [address] [place], [place] [address] Cardiovascular Disease 12/22/23 Master Shea PA-C [address] [facility] [address] [place] [address] Assigned Gastroenterology Provider 12/23/23 Sienna Guillermo DO [address] [facility] [address] [place] [address] Physician Cardiovascular Disease 01/18/24 documented as of this encounter
--- OUTSIDE RECORDS SUMMARY | 2024-03-25 18:14 | XMS_ITS | Encounter Summary ---
Author Name Unknown Organization [address] Address [facility] [place] [address] Care Team Providers Care Gasoline Engine Inspector Name Role Phone Segundo Mcclelland MD Unavailable [phone] Segundo Mcclelland MD Unavailable [phone] Qamar Jackson MD Unavailable Segundo Mcclelland MD Primary Care Provider + Gregorio Dalton PA-C Unavailable [phone] Kingsley Garcia MD Unavailable + [phone] Segundo Mcclelland MD Unavailable [phone] Master Shea PA-C Unavailable Allyssa Justice MD Unavailable [phone] Genaro Christian MD Unavailable + [phone] Master Shea-hSirley Unavailable Sienna Guillermo DO Unavailable [phone] Encounter Details Date Type Department Care Team (Late st Contact Info) Description 03/14/2024 Telephone [facility] Interventional Radiology [address] [place] [address] Deepika Tom, DONNA Social History Tobacco Use Types Packs/Day Years [...] Description 05/09/2024 10:00 AM CDT Office Visit [facility] [address] [place] [address] [place] [address] [place] [address] documented as of this encounter Visit Diagnoses Not on file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 Assessment Noted Time PHQ-9 Depression Total Score: 4 02/21/20 24 1:54 PM CDT documented as of this encounter Care Teams Gasoline Engine Inspector Relationship Specialty Start [place] [address] [place] [address] PCP - General Family Medicine 04/22/23 [place] [address] [place] [address] Assigned Pain Medication Provider 12/07/22 [place] [address] [place] [address] Assigned PCP 01/23/23 [place] [address] [place] [address] Assigned Musculoskeletal Provider 01/23/23 Gregorio Dalton PA-C [address] [place] [address] Assigned Surgical Provider 05/22/23 Kingsley Garcia MD [address] [place] [address] Assigned Heart and Vascular Provider 08/07/23 [place] [address] [place] [address] Family Medicine 09/10/23 Master Shea PA-C [address] [place] [address] Physician Director Of Retail Analytics Gastroenterology 09/10/23 Allyssa Justice MD [facility] [address] [place] [address] Hematology & Oncology 12/10/23 Genaro Christian MD [address] [place] [address] Cardiovascular Disease 12/22/23 Master Shea PA-C [address] [place] [address] Assigned Gastroenterology Provider 12/23/23 Sienna Guillermo DO [address] [place] [address] Physician Cardiovascular Disease 01/18/24 documented as of this encounter
--- OUTSIDE RECORDS SUMMARY | 2024-03-25 18:14 | XMS_ITS | Encounter Summary ---
Author Name Unknown Organization [place] Address [facility] [place] [address] Care Team Providers Care Orthopedic Physician Name Role Phone Segundo Mcclelland MD Unavailable [phone] Segundo Mcclelland MD Unavailable [phone] Qamar Jackson MD Unavailable Segundo Mcclelland MD Primary Care Provider + Gregorio Dalton PA-C Unavailable [phone] Kingsley Garcia MD Unavailable + [phone] Segundo Mcclelland MD Unavailable [phone] Master Shea PA-C Unavailable Allsysa Justice MD Unavailable [phone] Genaro Christian MD Unavailable [phone] Master Shea PA-C Unavailable Sienna Guillermo DO Unavailable Reason for Referral * Therapeutic Imaging/IR (Routine) - Closed Specialty Diagnoses / Procedures Referred By Contac t Referred To Contact Radiology. Diagnoses Infection of lumbar spine (H) Procedures IR Bone Biopsy Vertebral Yin Wolf APRN [facility] [facility] [facility] [address] [place] [address] Interventional Rad [address] [place] [phone] Referral ID Status Reason Start Date Expiration Date Visits Re quested Visits Authorized [id number] Closed 03/14/2024 03/14/2025 1 1 Reason for Visit * Auth/Cert Specialty Diagnoses / Procedures Referred By Vivek t Referred To Contact Med Surg Diagnoses [place]NK[place] Procedures IR Bone Biopsy Vertebral Care Suites [address] [place] [place] [address] Referral ID Status Reason Start Date Expiration Date Visits Re quested Visits Authorized [id number] 1 1 Encounter Details Date Type Department Care Team (Late st Contact Info) Description 03/15/2024 7:49 AM CDT - 03/15/2024 12:36 PM CDT Hospital Encounter [facility] [address] [place] [id number] Non-Fv Credentialed Provider, Radiology Other iron deficiency anemia (Primary Dx); Infection of lumbar spine (H) Discharge Disposition: Home or Self Care Social [...] Sign Reading Time Taken Comments Blood Pressure 129/56 03/15/2024 12:00 PM CDT Pulse 104 03/15/2024 12:00 PM CDT Temperature 36.6 ??C (97.9 ??F) 03/15/2024 8:02 AM CD T Respiratory Rate 16 03/15/2024 12:00 PM CDT Oxygen Saturation 100% 03/15/2024 12:00 PM CDT Inhaled Oxygen Concentration - - Weight - - Height - - Body Mass Index - - documented in this encounter Discharge Instructions * Discharge Instructions* Jessica Guerrero RN - 03/15/2024 11:58 AM CDT Bone Biopsy Discharge Instructions After you go home: Have an adult stay with you until tomorrow. You may resume your normal diet. No smoking For 24 hours - due to the sedation you received: Relax and take it easy. Do NOT make any important or legal decisions. Do NOT drive or operate machines at home or at work. Do NOT drink alcohol. Care of Back Puncture Site: You may remove the dressing tomorrow. You may take a shower tomorrow. Wait five days before swimming or taking a bath. Activity: Slowly increase your activity level. Walking will help you get stronger. You may drive tomorrow. If you cannot increase your activity or you are not getting stronger, call your primary care provider. Bleeding: If you start bleeding from the site in your back, lie down and press gently on the site for 10 minutes. You will need assistance to do this. If bleeding does not stop - call [facility] as soon as you can. Call 911 right away if you have heavy bleeding that does not stop. Medicines: Take your medications, including blood thinners, unless your provider tells you not to. If you take aspirin, Coumadin (Warfarin) or Plavix - you may start taking it this evening if no bleeding present. If you take Coumadin (Warfarin), have your INR checked by your provider in 3 to 5 days. Call your clinic to schedule this. If you have stopped any medicines, check with your provider about when to restart them. Follow Up Appointments: Follow up with your primary care provider as needed. Call the clinic if: Back pain that gets worse. You have increased pain or a large or growing hard lump around the site. The site is red, swollen, hot or tender. Blood or fluid is draining from the site. You have chills or a fever greater than 101 F (38 C). Any questions or concerns. If you have questions or concerns, call: [facility] [phone] documented in this encounter Medications at Time of Discharge Medication Sig Dispensed Refills Start Date End Date acetaminophen (TYLENOL) 500 MG tablet Take 1,000 mg by mouth every 4 hours as needed for mild pain childrens multivitamin w/iron (FLINTSTONES COMPLETE) chewable tablet [...] for 37 days Weekly CBC/diff,creat,SGOT, ESR,CRP to [facility] [phone] fax 370 mL 03/14/2024 04/20/2024 fluconazole (DIFLUCAN) 200 MG tabletIndications:Oste omyelitis, unspecified site, unspecified type (H) Take 1 tablet (200 mg) by mouth three times a week 18 tablet 03/13/2024 gabapentin (NEURONTIN) 800 MG tablet Take 800 mg by mouth 3 times daily lactulose (CHRONULAC) 10 GM/15ML solutionIndications:Os teomyelitis, unspecified [...] 03/13/2024 naloxone (NARCAN) 4 MG/0.1ML nasal spray [place] 4 mg into one nostril alternating nostrils once as needed for opioid reversal 06/28/2023 zolpidem (AMBIEN) 10 MG tablet Take 10 mg by mouth At Bedtime 12/17/2022 apixaban ANTICOAGULANT (ELIQUIS) 5 MG tabletIndications:Mult iple subsegmental pulmonary emboli without acute cor pulmonale (H) Take 1 tablet (5 mg) by mouth 2 times daily Hold apixaban till bone biopsy is done. 180 tablet 1 03/13/2024 folic acid (FOLVITE) 1 MG tablet Take 1 mg by mouth daily HYDROmorphone (DILAUDID) 2 MG tabletIndications:Oste omyelitis, [...] pain. 42 tablet 03/16/2024 03/25/2024 HYDROmorphone (DILAUDID) 2 MG tabletIndications:Oste omyelitis, unspecified site, unspecified type (H) Take 1 tablet (2 mg) by mouth every 4 hours as needed for moderate pain (IF pain not managed with non-pharmacological and non-opioid interventions) 42 tablet 03/13/2024 03/16/2024 diphenhydrAMINE (BENADRYL) 25 MG tabletIndications:Oste omyelitis, unspecified site, unspecified type (H) Take 1 tablet (25 mg) by mouth every 6 hours as needed for itching or allergies 8 tablet 03/13/2024 03/15/2024 documented as of this encounter Progress Notes * Malia Rodriguez RN - 03/15/2024 12:30 PM CDT Care Suites Discharge Nursing Note Patient Information Name: Sandi Lopez Age: [age] year old Discharge Education: Discharge instructions reviewed: Yes Additional education/resources provided: none 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 Sight remains CDI. Patient Belongs: Patient belongings returned to patient: N/A Malia Rodriguez RN * Malia Rodriguez RN - 03/15/2024 10:29 AM CDT Care Suites Post Procedure Note Patient Information Name: Sandi Lopez Age: [age] year old Post Procedure Time patient returned to Care Suites: 1010 Concerns/abnormal assessment: tearful, rates pain at 10/10. If abnormal assessment, provider notified: Yes- Per IR dept a page was sent to Dr Wallis BRAZING MACHINE OPERATOR/PA with request for pt's home med of hydromorphone to be ordered. Awaiting return call from Gauri. Pt states her dilaudid dose was recently increased to 4mg. MORTGAGE LOAN PROCESSOR listed as 2 mg. Plan/Other: site CDI, ice to site. Remains tearful. Flat bedrest x1 hour, then 1 hour with bedrest and BR privileges. Call light at hand, ice chips given. Call placed to Dr Wallis. Telephone order obtained. See MAI Rodriguez RN * Montserrat Diaz RN - 03/15/2024 8:55 AM CDT Care Suites Admission Nursing Note Patient Information Name: Sandi Lopez Age: [age] year old Reason for admission: IR verterbral bone bx Care Suites arrival time: 0800 Visitor Information Name: Augie Patient Admission/Assessment Pre-procedure assessment complete: Yes If abnormal assessment/labs, provider notified: Yes. NPO: Yes Medications held per instructions/orders: Yes. States last dose of Eliquis was taken on Wednesday, around 0800 Consent: deferred If applicable, test status: deferred. States has had a hysterectomy. Patient oriented to room: Yes Education/questions answered: Yes Plan/other: Proceed as ordered. Sandi arrived with PP already accessed. Arrived with daily antibiotic infusing. She flushed with NS post infusion. This real estate underwriter flushed her port again. Able to draw blood very slowly for waste but was unable to drawenough for ordered labs so called/ordered lab to draw. Discharge Planning Discharge name/phone number: Augie-ex [phone] Overnight post sedation caregiver: Neighbor Discharge location: home Montserrat Diaz RN documented in this encounter Procedure Notes * Huan Wallis MD - 03/15/2024 10:05 AM CDT Images from the original note were not included. Neurointerventional Surgery Post-procedure Patient Name: Sandi Lopez Date of Procedure: March 15, 2024 Procedure: L4-5 disc aspiration and L5 bone biopsy Radiologist: Huan Wallis MD Contrast: none Fluoro Time: 2.7 minutes Air Kerma: 177.22 mGy Medications: Versed 6 mg IV Fentanyl 200 mcg IV Sedation Time: 13 minutes EBL: min Complications: none Patient reevaluated immediately prior to sedation and prior to procedure. Preliminary Report: (See dictation for full detail) Transitional lumbosacral anatomy Large core specimen obtained from 5th non rib-bearing vertebra L4-5 disc space aspirated, no stacy fluid, disc space washings also sent for gram stain and culture Assess/Plan: See lab results Bedrest x 2 hrs Report to ordering Huan Wallis MD Emergency pager: [phone] Office: [phone] documented in this encounter Miscellaneous Notes * IR Note - Neda Cook RN - 03/15/2024 10:20 AM CDT Interventional Radiology Intra-procedural Nursing Note Patient Name: Sandi Lopez Today's Date: March 15, 2024 Procedure consented for : L4-5 disc aspiration and L5 bone biopsy Start time: 948 End time: 1001 Report provided to: SHANNON RN Patient depart time and location: 1010 to 11 Note: Patient entered Interventional Radiology Suite number 3 via cart. Patient awake, alert and oriented. Assisted onto procedural table in prone position. Prepped and draped. Dr. Wallis in room. Time out and procedure started. Vital signs stable. Telemetry reading ST. Procedure well tolerated by patient without complications. Procedure end with debrief by Dr. Wallis. Gauze dressing applied to lumbar spine. 2 hours bedrest. Administered medication totals: Lidocaine 1% 20 mL Intradermal Versed 6 mg IVP Fentanyl 200 mcg IVP Last dose of sedation administered at 959. * Pre-Procedure - Huan Wallis MD - 03/15/2024 9:31 AM CDT GENERAL PRE-PROCEDURE: Procedure: L4-5 bone biopsy and disc aspiration Date/Time: 03/15/2024 9:32 AM Verbal consent obtained?: Yes Written consent obtained?: Yes Risks and benefits: Risks, benefits and alternatives were discussed Consent given by: Patient Patient states understanding of procedure being performed: Yes Patient's understanding of procedure matches consent: Yes Procedure consent matches procedure scheduled: Yes Expected level of sedation: Moderate Appropriately NPO: Yes ASA Class: 2 Mallampati : Grade 2- soft palate, base of uvula, tonsillar pillars, and portion of posterior pharyngeal wall visible Lungs: Lungs clear with good breath sounds bilaterally Heart: Normal heart sounds and rate History & Physical reviewed: History and physical reviewed and no updates needed Statement of review: I have reviewed the lab findings, diagnostic data, medications, and the plan for sedation documented in this encounter Plan of Treatment Upcoming Encounters Date Type Department Care Team (Late st Contact Info) Description 05/09/2024 10:00 AM CDT Office Visit [facility] [address] [place] [address] [place] [address] [place] [address] Pending Results Name Type Priority Associated Diagnoses Date /Time Fungal or Yeast Culture Routine Microbiology Routine 03/15/2024 9:57 AM CDT Fungal or Yeast Culture Routine Microbiology Routine 03/15/2024 9:58 AM CDT documented as of this encounter Procedures Procedure Name Priority Date/Time Associated Diagnosis Comments IR BONE BIOPSY VERTEBRAL Routine 03/15/2024 10:09 AM CDT Infection of lumbar spine (H) AEROBIC BACTERIAL CULTURE ROUTINE Routine 03/15/2024 9:58 AM CDT FUNGAL OR YEAST CULTURE ROUTINE Routine 03/15/2024 9:58 AM CDT AEROBIC BACTERIAL CULTURE ROUTINE Routine 03/15/2024 9:57 AM CDT FUNGAL OR YEAST CULTURE ROUTINE Routine 03/15/2024 9:57 AM CDT ANAEROBIC BACTERIAL CULTURE ROUTINE Routine 03/15/2024 9:57 AM CDT ANAEROBIC BACTERIAL CULTURE ROUTINE Routine 03/15/2024 9:57 AM CDT INR STAT 03/15/2024 8:49 AM CDT PARTIAL THROMBOPLASTIN TIME STAT 03/15/2024 8:49 AM CDT documented in this encounter Results * IR Bone Biopsy [...] CPT codes included for physician reference only: 45807/59782, 96040/12616 Narrative 03/23/2024 10:19 PM CDT [facility] INTERVENTIONAL NEURORADIOLOGY 03/15/2024 10:09 AM CDT 1. [...] LOSS: Minimal PERFORMING PHYSICIAN(S): Huan Wallis M.D. [facility] PROCEDURE: The patient was placed in [...] made over the pedicle through which a [place] introducer device was advanced until its tip [...] Procedure Note Huan Wallis MD - 03/23/2024 [facility] INTERVENTIONAL NEURORADIOLOGY 03/15/2024 10:09 AM CDT 1. [...] LOSS: Minimal PERFORMING PHYSICIAN(S): Huan Wallis M.D. [facility] PROCEDURE: The patient was placed in [...] was made overthe pedicle through which a Verdezyne introducer device was advanced until its tip [...] the procedure. 2. Technically successful fluoroscopically-guided percutaneous M2igzhogirz body bone biopsy, with a large core specimen obtained and sentto microbiology for further analysis. 3. See lab results for further details.. CPT codes included for physician reference only: 27236/11741,[id number]/42502 Yin Wolf SOUP PERSON [employer] IMG IR ORDERABL ES * Tissue Aerobic Bacterial Culture Routine With Gram Stain (03/15/2024 9:58 AM CDT) Culture No Growth [place] 03/20/2024 7:21 AM [...] MICRO GENERA L ORDERABLES [facility] Inf. Diseases Diag. Lab [address] [facility], [address] * Anaerobic bacterial culture (03/15/2024 9:57 AM CDT) Culture No anaerobic organisms isolated [place] 03/22/2024 8:20 AM CDT [facility] Tissue STRUCTURE OF INTERVERTEBRAL DISC / Unknown Non-blood Collection / Unknown 03/15/2024 9:57 AM CDT 03/15/2024 10:10 AM CDT Gauri Romo NP LAB - MICRO GENERA L ORDERABLES Performing Organization Address [facility] de Phone Number [facility] Inf. Diseases Diag. Lab [address] [facility], [address] * Anaerobic bacterial culture (03/15/2024 9:57 AM CDT) Culture No anaerobic organisms isolated [place] 03/22/2024 8:18 AM CDT [facility] Bone Biopsy BONE STRUCTURE OF VERTEBRA / Unknown Non-blood Collection / Unknown 03/15/2024 9:57 AM CDT 03/15/2024 10:10 AM CDT Narrative [facility] - 03/22/2024 8:18 AM CDT This specimen was not received in an anaerobic transport container, thus the absence or quantity of anaerobic organisms in this culture may not be auto claim representative of the anaerobic organisms present in the specimen. Gauri Romo NP LAB - MICRO GENERA L ORDERABLES [facility] Inf. Diseases Diag. Lab [address] [facility], [address] [place] [phone], [facility] * Bone Biopsy Aerobic Bacterial Culture Routine With Gram Stain (03/15/2024 9:57 AM CDT) Culture No Growth [place] 03/22/2024 7:12 AM CDT [facility] Gram Stain Result No organisms seen 03/22/2024 7:12 AM CDT [facility] Gram Stain Result No white blood cells seen 03/22/2024 7:12 AM CDT [facility] Bone Biopsy BONE STRUCTURE OF VERTEBRA / Unknown Non-blood Collection / Unknown 03/15/2024 9:57 AM CDT 03/15/2024 10:10 AM CDT Gauri Romo NP LAB - MICRO GENERA L ORDERABLES [facility] Inf. Diseases Diag. Lab [address] [facility], [address] [address], [facility] * Partial thromboplastin time (03/15/2024 8:49 AM CDT) aPTT 36 22 - 38 Seconds 03/15/2024 9:09 AM CDT LABORATORY Blood STRUCTURE OF RIGHT UPPER LIMB / Unknown Venipuncture / Unknown 03/15/2024 8:49 AM CDT 03/15/2024 8:56 AM CDT Gauri Romo NP LAB - BLOOD ORDERA BLES [facility] [address], [address] [place] [address], [facility] * INR (03/15/2024 8:49 AM CDT) INR 1.02 0.85 - 1.15 03/15/2024 9:09 AM CDT LABORATORY Blood STRUCTURE OF RIGHT UPPER LIMB / Unknown Venipuncture / Unknown 03/15/2024 8:49 AM CDT 03/15/2024 8:56 AM CDT Gauri Prieto Romo NP LAB - BLOOD ORDERA BLES [facility] [address], [address] [place] [address], [facility] documented in this encounter Visit Diagnoses Diagnosis Other iron deficiency anemia- Primary Infection of lumbar spine (H) documented in this encounter Administered Medications Inactive Administered Medications - up to 3 most recent administrations Medication Order MAR Action Action Date Dose Rate Site alteplase (CATHFLO ACTIVASE) injection 2 mg 2 mg, Intravenous, ONCE PRN, Catheter Occlusion, Starting on Wed03/15/24 at 0801, Use 10 mL syringe to reconstitute to 2.2 mL and instill into clotted catheter & allow to dwell for 30 mins, then DRAW BACK and discard contents to assess catheter function. If still occluded, allow mixture to dwell for an additional 90 mins, then DRAW BACK and discard contents to reassess catheter function.??May repeat dose once if occlusion persists.??Contact provider if 2nd dose is unsuccessful. Only use a 10 ml syringe to administer the solution into each lumen. For catheters with lumen volumes greater than the volume dispensed, request additional syringe(s) from pharmacy. To prevent inadvertent embolization of thrombus from the catheter, ALWAYS WITHDRAW alteplase (ACTIVASE) at the end of the dwell time before administering any solution through the catheter. diphenhydrAMINE (BENADRYL) injection 50 mg 50 mg, Intravenous, ONCE, On Wed03/15/24 at 1030, For 1 dose, Protect from light. $Given 03/15/2024 9:50 AM CDT 50 mg fentaNYL (PF) (SUBLIMAZE) injection 25-50 mcg 25-50 mcg, Intravenous, EVERY 5 MIN PRN, severe pain, If inadequate response may repeat 25 mcg IV slowly every 5 min PRN severe pain; when verbally requested by provider., Administer over 2 Minutes, Starting on Wed03/15/24 at 0839, Doses can be exceeded under direct oversight of patient by physician., IR Intra-procedure fentaNYL (PF) (SUBLIMAZE) injection 25-50 mcg 25-50 mcg, Intravenous, EVERY 5 MIN PRN, severe pain, If inadequate response may repeat 25 mcg IV slowly every 5 min PRN severe pain; when verbally requested by provider., Administer over 2 Minutes, Starting on Wed03/15/24 at 0932, Doses can be exceeded under direct oversight of patient by physician., IR Intra-procedure $Given 03/15/2024 9:59 AM CDT 50 mcg $Given 03/15/2024 9:55 AM CDT 50 mcg $Given 03/15/2024 9:49 AM CDT 50 mcg flumazenil (ROMAZICON) injection 0.2 mg 0.2 mg, Intravenous, EVERY 1 MIN PRN, benzodiazepine reversal, If inadequate response after 45 seconds, may repeat 0.2 mg IV every 1 minute PRN oversedation., Administer over 1 Minutes, Starting on Wed03/15/24 at 0839, Give over 15 seconds. Maximum total dose of 1 mg. Continue monitoring until discharge criteria met for a minimum of 2 hours. Irritant. Use with caution in patients on benzodiazepine therapy., IR Intra-procedure flumazenil (ROMAZICON) injection 0.2 mg 0.2 mg, Intravenous, EVERY 1 MIN PRN, benzodiazepine reversal, If inadequate response after 45 seconds, may repeat 0.2 mg IV every 1 minute PRN oversedation., Administer over 1 Minutes, Starting on Wed03/15/24 at 0932, Give over 15 seconds. Maximum total dose of 1 mg. Continue monitoring until discharge criteria met for a minimum of 2 hours. Irritant. Use with caution in patients on benzodiazepine therapy., IR Intra-procedure heparin 100 unit/mL injection 5 mL 5 mL, Intracatheter, ONCE PRN, To de-access CVC Impanted port or lock each lumen, Starting on Wed03/15/24 at 0801, PORT: to de-access, instill 5 mL before PORT needle is removed and every 28 days. Apheresis: only for use when patient is NOT under care of apheresis services; after a 10 mL NS flush, lock each lumen of the catheter with 5 mL. heparin lock flush 10 UNIT/ML injection 5-20 mL 5-20 mL, Intracatheter, DAILY PRN, To lock the line, Starting on Wed03/15/24 at 0801, To lock each Non-Valved dormant lumen. MAX dose: 5 mL for each lumen. Check PRN heparin flush order to see when the last dose of the PRN heparin was given before administering this heparin dose. Dormant Non-Valved lines should be heparin flushed once every 24 hours. To lock the lumens: Flush with 10 mL sodium chloride 0.9% for each lumen to ensure patency and then flush each dormant lumen with 5 mL of heparin to lock the dormant line. $Given 03/15/2024 12:10 PM CDT 5 mLs HOLD: apixaban (ELIQUIS) pre-procedure Medication(s) to hold: apixaban (ELIQUIS), Parameter for hold (doses,days,conditions) : Hold before Procedure or Test, Hours or days to hold med before/after procedure/surgery: see admin instructions, HOLD, Starting on Wed03/15/24 at 0759, Until Wed03/15/24 at 1437, Hold 4 doses if CrCl greater than or equal to 50 mL/min or 6 doses if CrCl less than 50 mL/min; if procedure emergent, use reversal agent, IR Pre-procedure HYDROmorphone (DILAUDID) tablet 4 mg 4 mg, Oral, ONCE, On Wed03/15/24 at 1100, For 1 dose $Given 03/15/2024 10:56 AM CDT 4 mg lidocaine (LMX4) cream Topical, EVERY 1 HOUR PRN, pain, with VAD insertion, Starting on Wed03/15/24 at 0759, Apply at least 30 minutes prior to VAD insertion in divided doses as needed for size of site for insertion. MAX Dose: 2.5 g (?? of 5 g tube) Do NOT give if patient has a history of allergy to any local anesthetic or any ahsan product. Do NOT use both lidocaine intradermal/subcutaneous injection and the lidocaine cream on the same site., IR Pre-procedure lidocaine 1 % 0.1-1 mL 0.1-1 mL, Other, EVERY 1 HOUR PRN, mild pain with VAD insertion, Starting on Wed03/15/24 at 0759, MAX dose 1 mL subcutaneous OR intradermal along the side of the vein in divided doses as needed for VAD insertion. Do NOT give if patient has a history of allergy to any local anesthetic or any ahsan product. Do NOT use both lidocaine intradermal/subcutaneous injection and the lidocaine cream on the same site., IR Pre-procedure lidocaine 1 % 1-30 mL 1-30 mL, Intradermal, ONCE PRN, local anesthetic. When verbally ordered by prescriber during the procedure., Starting on Wed03/15/24 at 0932, For 1 dose, Dose to be divided into smaller volumes appropriate for the procedure. Provider to administer intradermally., IR Intra-procedure $Given by Other 03/15/2024 9:48 AM CDT 20 mLs midazolam (VERSED) injection 0.5-2 mg 0.5-2 mg, Intravenous, Administer over 1 Minutes, EVERY 4 MIN PRN, sedation, If inadequate response may repeat 0.5 mg IV slowly every 4 minutes PRN sedation until desired response; when verbally requested by provider., Starting on Wed03/15/24 at 0839, Doses can be exceeded under direct oversight of patient by physician. This drug may cause significant respiratory depression. Monitor respiratory status and vital signs carefully for 1 hour after each dose., IR Intra-procedure $Given 03/15/2024 9:55 AM CDT 2 mg $Given 03/15/2024 9:49 AM CDT 2 mg midazolam (VERSED) injection 0.5-2 mg 0.5-2 mg, Intravenous, Administer over 1 Minutes, EVERY 4 MIN PRN, sedation, If inadequate response may repeat 0.5 mg IV slowly every 4 minutes PRN sedation until desired response; when verbally requested by provider., Starting on Wed03/15/24 at 0932, Doses can be exceeded under direct oversight of patient by physician. This drug may cause significant respiratory depression. Monitor respiratory status and vital signs carefully for 1 hour after each dose., IR Intra-procedure $Given 03/15/2024 9:42 AM CDT 2 mg naloxone (NARCAN) injection 0.2 mg 0.2 mg, Intravenous, EVERY 2 MIN PRN, opioid reversal, Starting on Wed03/15/24 at 0839, Administer intravenous route when available and notify provider when administered. For unintended sedation or respiratory depression if all of the below criteria are met: ~ respiratory rate LESS than or EQUAL to 8. ~SaO2 less than 92% and or/end-tidal CO2 is greater than 50. ~ the patient is receiving an opioid, has unintended sedations assessed as RASS (-3), and is currently not on mechanical ventilation. RASS scale moderate (-3) is movement or eye opening to voice but no eye contact. Patient Monitoring Once the patient has demonstrated a response to the naloxone, continue to monitor respiratory rate, depth, oxygen saturation and end-tidal CO2 (if available) every 15 minutes x 2, then every 30 minutes x 2, then every 1 hour x 1 after each naloxone dose. Consider transfer to ICU if patient respiratory parameters have not improved after 4 naloxone doses., IR Intra-procedure naloxone (NARCAN) injection 0.2 mg 0.2 mg, Intramuscular, EVERY 2 MIN PRN, opioid reversal, Starting on Wed03/15/24 at 0839, Administer intramuscular if an intravenous route is not available and notify provider when administered. For unintended sedation or respiratory depression if all of the below criteria are met: ~ respiratory rate LESS than or EQUAL to 8. ~SaO2 less than 92% and or/end-tidal CO2 is greater than 50. ~ the patient is receiving an opioid, has unintended sedations assessed as RASS (-3), and is currently not on mechanical ventilation. RASS scale moderate (-3) is movement or eye opening to voice but no eye contact. Patient Monitoring Once the patient has demonstrated a response to the naloxone, continue to monitor respiratory rate, depth, oxygen saturation and end-tidal CO2 (if available) every 15 minutes x 2, then every 30 minutes x 2, then every 1 hour x 1 after each naloxone dose. Consider transfer to ICU if patient respiratory parameters have not improved after 4 naloxone doses., IR Intra-procedure naloxone (NARCAN) injection 0.2 mg 0.2 mg, Intravenous, EVERY 2 MIN PRN, opioid reversal, Starting on Wed03/15/24 at 0932, Administer intravenous route when available and notify provider when administered. For unintended sedation or respiratory depression if all of the below criteria are met: ~ respiratory rate LESS than or EQUAL to 8. ~SaO2 less than 92% and or/end-tidal CO2 is greater than 50. ~ the patient is receiving an opioid, has unintended sedations assessed as RASS (-3), and is currently not on mechanical ventilation. RASS scale moderate (-3) is movement or eye opening to voice but no eye contact. Patient Monitoring Once the patient has demonstrated a response to the naloxone, continue to monitor respiratory rate, depth, oxygen saturation and end-tidal CO2 (if available) every 15 minutes x 2, then every 30 minutes x 2, then every 1 hour x 1 after each naloxone dose. Consider transfer to ICU if patient respiratory parameters have not improved after 4 naloxone doses., IR Intra-procedure naloxone (NARCAN) injection 0.2 mg 0.2 mg, Intramuscular, EVERY 2 MIN PRN, opioid reversal, Starting on Wed03/15/24 at 0932, Administer intramuscular if an intravenous route is not available and notify provider when administered. For unintended sedation or respiratory depression if all of the below criteria are met: ~ respiratory rate LESS than or EQUAL to 8. ~SaO2 less than 92% and or/end-tidal CO2 is greater than 50. ~ the patient is receiving an opioid, has unintended sedations assessed as RASS (-3), and is currently not on mechanical ventilation. RASS scale moderate (-3) is movement or eye opening to voice but no eye contact. Patient Monitoring Once the patient has demonstrated a response to the naloxone, continue to monitor respiratory rate, depth, oxygen saturation and end-tidal CO2 (if available) every 15 minutes x 2, then every 30 minutes x 2, then every 1 hour x 1 after each naloxone dose. Consider transfer to ICU if patient respiratory parameters have not improved after 4 naloxone doses., IR Intra-procedure naloxone (NARCAN) injection 0.4 mg 0.4 mg, Intravenous, EVERY 2 MIN PRN, opioid reversal, Starting on Wed03/15/24 at 0839, Administer intravenous route when available and notify provider when administered. For unintended sedation or respiratory depression if all of the below criteria are met: ~ respiratory rate LESS than or EQUAL to 8. ~ SaO2 less than 92% and or/end-tidal CO2 is greater than 50. ~ the patient is receiving an opioid, has unintended sedation assessed as RASS (-4) or (-5) and patient is currently not on mechanical ventilation. RASS scale (-4) is deep sedation with no response to voice but movement or eye opening to physical stimulation. RASS scale (-5) is unarousable. Patient Monitoring Once the patient has demonstrated a response to the naloxone, continue to monitor respiratory rate, depth, oxygen saturation and end-tidal CO2 (if available) every 15 minutes x 2, then every 30 minutes x 2, then every 1 hour x 1 after each naloxone dose. Consider transfer to ICU if patient respiratory parameters have not improved after 4 naloxone doses., IR Intra-procedure naloxone (NARCAN) injection 0.4 mg 0.4 mg, Intramuscular, EVERY 2 MIN PRN, opioid reversal, Starting on Wed03/15/24 at 0839, Administer intramuscular if an intravenous route is not available and notify provider when administered. For unintended sedation or respiratory depression if all of the below criteria are met: ~ respiratory rate LESS than or EQUAL to 8. ~ SaO2 less than 92% and or/end-tidal CO2 is greater than 50. ~ the patient is receiving an opioid, has unintended sedation assessed as RASS (-4) or (-5) and patient is currently not on mechanical ventilation. RASS scale (-4) is deep sedation with no response to voice but movement or eye opening to physical stimulation. RASS scale (-5) is unarousable. Patient Monitoring Once the patient has demonstrated a response to the naloxone, continue to monitor respiratory rate, depth, oxygen saturation and end-tidal CO2 (if available) every 15 minutes x 2, then every 30 minutes x 2, then every 1 hour x 1 after each naloxone dose. Consider transfer to ICU if patient respiratory parameters have not improved after 4 naloxone doses., IR Intra-procedure naloxone (NARCAN) injection 0.4 mg 0.4 mg, Intravenous, EVERY 2 MIN PRN, opioid reversal, Starting on Wed03/15/24 at 0932, Administer intravenous route when available and notify provider when administered. For unintended sedation or respiratory depression if all of the below criteria are met: ~ respiratory rate LESS than or EQUAL to 8. ~ SaO2 less than 92% and or/end-tidal CO2 is greater than 50. ~ the patient is receiving an opioid, has unintended sedation assessed as RASS (-4) or (-5) and patient is currently not on mechanical ventilation. RASS scale (-4) is deep sedation with no response to voice but movement or eye opening to physical stimulation. RASS scale (-5) is unarousable. Patient Monitoring Once the patient has demonstrated a response to the naloxone, continue to monitor respiratory rate, depth, oxygen saturation and end-tidal CO2 (if available) every 15 minutes x 2, then every 30 minutes x 2, then every 1 hour x 1 after each naloxone dose. Consider transfer to ICU if patient respiratory parameters have not improved after 4 naloxone doses., IR Intra-procedure naloxone (NARCAN) injection 0.4 mg 0.4 mg, Intramuscular, EVERY 2 MIN PRN, opioid reversal, Starting on Wed03/15/24 at 0932, Administer intramuscular if an intravenous route is not available and notify provider when administered. For unintended sedation or respiratory depression if all of the below criteria are met: ~ respiratory rate LESS than or EQUAL to 8. ~ SaO2 less than 92% and or/end-tidal CO2 is greater than 50. ~ the patient is receiving an opioid, has unintended sedation assessed as RASS (-4) or (-5) and patient is currently not on mechanical ventilation. RASS scale (-4) is deep sedation with no response to voice but movement or eye opening to physical stimulation. RASS scale (-5) is unarousable. Patient Monitoring Once the patient has demonstrated a response to the naloxone, continue to monitor respiratory rate, depth, oxygen saturation and end-tidal CO2 (if available) every 15 minutes x 2, then every 30 minutes x 2, then every 1 hour x 1 after each naloxone dose. Consider transfer to ICU if patient respiratory parameters have not improved after 4 naloxone doses., IR Intra-procedure sodium chloride (PF) 0.9% PF flush 3 mL 3 mL, Intracatheter, EVERY 8 HOURS, First dose on Wed03/15/24 at 0800, to lock peripheral IV dormant line, IR Pre-procedure sodium chloride (PF) 0.9% PF flush 3 mL 3 mL, Intracatheter, EVERY 1 MIN PRN, line flush, other, to ensure patency or to lock dormant line, Starting on Wed03/15/24 at 0759, IR Pre-procedure sodium chloride (PF) 0.9% PF flush 3-20 mL 3-20 mL, Intracatheter, EVERY 1 MIN PRN, line flush, post meds or blood draw, Starting on Wed03/15/24 at 0801, PIV: 3 mL after each use & PRN to access patency Midline, valved catheters, or PORT- 10mL after each use, PRN to access patency, 20 mL post blood draw Non-valved catheters: 10 mL after each use & PRN to access patency; 20mL flush pre and post blood draws or blood administration Apheresis: only for use when patient is NOT under care of apheresis services; 10 mL after each use & PRN to assess patency; 20 mL after blood draw. $Given 03/15/2024 12:09 PM CDT 10 mLs $Given 03/15/2024 8:38 AM CDT 40 mLs sodium chloride 0.9 % infusion at 75 mL/hr, Intravenous, CONTINUOUS, IF PATIENT IS RECEIVING RENAL DIALYSIS, RN to reduce rate of 0.9 % sodium chloride IV solution to 10 mL /hour (TKO) IV infusion to prevent fluid overload., IR Pre-procedure, Starting on Wed03/15/24 at 0800, Until Wed03/15/24 at 1437 Rate/Dose Verify 03/15/2024 10:46 AM CDT 75 mL/hr $New Bag 03/15/2024 8:39 AM CDT 75 mL/hr documented in this encounter Active and Recently Administered Medications Times are shown in CDT. Scheduled Medication Order 03/13/2024 03/14/2024 03/15/2024 diphenhydrAMINE (BENADRYL) injection 50 mg (COMPLETED) 50 mg, Intravenous, ONCE, On Wed03/15/24 at 1030, For 1 dose, Protect from light. 0950 ($Given - Provi rosita: Neda Cook RN) HYDROmorphone (DILAUDID) tablet 4 mg (COMPLETED) 4 mg, Oral, ONCE, On Wed03/15/24 at 1100, For 1 dose 1056 ($Given - Provi rosita: Malia Rodriguez RN) sodium chloride (PF) 0.9% PF flush 3 mL 3 mL, Intracatheter, EVERY 8 HOURS, First dose on Wed03/15/24 at 0800, to lock peripheral IV dormant line, IR Pre-procedure 0800 (Canceled Entry - Provider: Orders Generic Provider - Comment: Automatically canceled at discontinue of medication order) Continuous Medication Order 03/13/2024 03/14/2024 03/15/2024 sodium chloride 0.9 % infusion at 75 mL/hr, Intravenous, CONTINUOUS, IF PATIENT IS RECEIVING RENAL DIALYSIS, RN to reduce rate of 0.9 % sodium chloride IV solution to 10 mL /hour (TKO) IV infusion to prevent fluid overload., IR Pre-procedure, Starting on Wed03/15/24 at 0800, Until Wed03/15/24 at 1437 0839 ($New Bag - Pro vider: Montserrat Diaz RN)1046 (Rate/Dose Verify - Provider: Malia Rodriguez RN) PRN Medication Order 03/13/2024 03/14/2024 03/15/2024 alteplase (CATHFLO ACTIVASE) injection 2 mg 2 mg, Intravenous, ONCE PRN, Catheter Occlusion, Starting on Wed03/15/24 at 0801, Use 10 mL syringe to reconstitute to 2.2 mL and instill into clotted catheter & allow to dwell for 30 mins, then DRAW BACK and discard contents to assess catheter function. If still occluded, allow mixture to dwell for an additional 90 mins, then DRAW BACK and discard contents to reassess catheter function.??May repeat dose once if occlusion persists.??Contact provider if 2nd dose is unsuccessful. Only use a 10 ml syringe to administer the solution into each lumen. For catheters with lumen volumes greater than the volume dispensed, request additional syringe(s) from pharmacy. To prevent inadvertent embolization of thrombus from the catheter, ALWAYS WITHDRAW alteplase (ACTIVASE) at the end of the dwell time before administering any solution through the catheter. fentaNYL (PF) (SUBLIMAZE) injection 25-50 mcg 25-50 mcg, Intravenous, EVERY 5 MIN PRN, severe pain, If inadequate response may repeat 25 mcg IV slowly every 5 min PRN severe pain; when verbally requested by provider., Administer over 2 Minutes, Starting on Wed03/15/24 at 0839, Doses can be exceeded under direct oversight of patient by physician., IR Intra-procedure fentaNYL (PF) (SUBLIMAZE) injection 25-50 mcg 25-50 mcg, Intravenous, EVERY 5 MIN PRN, severe pain, If inadequate response may repeat 25 mcg IV slowly every 5 min PRN severe pain; when verbally requested by provider., Administer over 2 Minutes, Starting on Wed03/15/24 at 0932, Doses can be exceeded under direct oversight of patient by physician., IR Intra-procedure 0944 ($Given - Provi rosita: Neda Cook RN)0949 ($Given - Provider: Neda Cook RN)0955 ($Given - Provider: Neda Cook RN)0959 ($Given - Provider: Neda Cook RN) flumazenil (ROMAZICON) injection 0.2 mg 0.2 mg, Intravenous, EVERY 1 MIN PRN, benzodiazepine reversal, If inadequate response after 45 seconds, may repeat 0.2 mg IV every 1 minute PRN oversedation., Administer over 1 Minutes, Starting on Wed03/15/24 at 0839, Give over 15 seconds. Maximum total dose of 1 mg. Continue monitoring until discharge criteria met for a minimum of 2 hours. Irritant. Use with caution in patients on benzodiazepine therapy., IR Intra-procedure flumazenil (ROMAZICON) injection 0.2 mg 0.2 mg, Intravenous, EVERY 1 MIN PRN, benzodiazepine reversal, If inadequate response after 45 seconds, may repeat 0.2 mg IV every 1 minute PRN oversedation., Administer over 1 Minutes, Starting on Wed03/15/24 at 0932, Give over 15 seconds. Maximum total dose of 1 mg. Continue monitoring until discharge criteria met for a minimum of 2 hours. Irritant. Use with caution in patients on benzodiazepine therapy., IR Intra-procedure heparin 100 unit/mL injection 5 mL 5 mL, Intracatheter, ONCE PRN, To de-access CVC Impanted port or lock each lumen, Starting on Wed03/15/24 at 0801, PORT: to de-access, instill 5 mL before PORT needle is removed and every 28 days. Apheresis: only for use when patient is NOT under care of apheresis services; after a 10 mL NS flush, lock each lumen of the catheter with 5 mL. heparin lock flush 10 UNIT/ML injection 5-20 mL 5-20 mL, Intracatheter, DAILY PRN, To lock the line, Starting on Wed03/15/24 at 0801, To lock each Non-Valved dormant lumen. MAX dose: 5 mL for each lumen. Check PRN heparin flush order to see when the last dose of the PRN heparin was given before administering this heparin dose. Dormant Non-Valved lines should be heparin flushed once every 24 hours. To lock the lumens: Flush with 10 mL sodium chloride 0.9% for each lumen to ensure patency and then flush each dormant lumen with 5 mL of heparin to lock the dormant line. 1210 ($Given - Provi rosita: Bindu Pham RN) HOLD: apixaban (ELIQUIS) pre-procedure Medication(s) to hold: apixaban (ELIQUIS), Parameter for hold (doses,days,conditions) : Hold before Procedure or Test, Hours or days to hold med before/after procedure/surgery: see admin instructions, HOLD, Starting on Wed03/15/24 at 0759, Until Wed03/15/24 at 1437, Hold 4 doses if CrCl greater than or equal to 50 mL/min or 6 doses if CrCl less than 50 mL/min; if procedure emergent, use reversal agent, IR Pre-procedure lidocaine (LMX4) cream Topical, EVERY 1 HOUR PRN, pain, with VAD insertion, Starting on Wed03/15/24 at 0759, Apply at least 30 minutes prior to VAD insertion in divided doses as needed for size of site for insertion. MAX Dose: 2.5 g (?? of 5 g tube) Do NOT give if patient has a history of allergy to any local anesthetic or any ahsan product. Do NOT use both lidocaine intradermal/subcutaneous injection and the lidocaine cream on the same site., IR Pre-procedure lidocaine 1 % 0.1-1 mL 0.1-1 mL, Other, EVERY 1 HOUR PRN, mild pain with VAD insertion, Starting on Wed03/15/24 at 0759, MAX dose 1 mL subcutaneous OR intradermal along the side of the vein in divided doses as needed for VAD insertion. Do NOT give if patient has a history of allergy to any local anesthetic or any ahsan product. Do NOT use both lidocaine intradermal/subcutaneous injection and the lidocaine cream on the same site., IR Pre-procedure lidocaine 1 % 1-30 mL (COMPLETED) 1-30 mL, Intradermal, ONCE PRN, local anesthetic. When verbally ordered by prescriber during the procedure., Starting on Wed03/15/24 at 0932, For 1 dose, Dose to be divided into smaller volumes appropriate for the procedure. Provider to administer intradermally., IR Intra-procedure 0948 ($Given by Othe r - Provider: Perlita Talley RN - Comment: marita) midazolam (VERSED) injection 0.5-2 mg 0.5-2 mg, Intravenous, Administer over 1 Minutes, EVERY 4 MIN PRN, sedation, If inadequate response may repeat 0.5 mg IV slowly every 4 minutes PRN sedation until desired response; when verbally requested by provider., Starting on Wed03/15/24 at 0839, Doses can be exceeded under direct oversight of patient by physician. This drug may cause significant respiratory depression. Monitor respiratory status and vital signs carefully for 1 hour after each dose., IR Intra-procedure 0949 ($Given - Provi rosita: Neda Cook RN)0955 ($Given - Provider: Neda Cook RN) midazolam (VERSED) injection 0.5-2 mg 0.5-2 mg, Intravenous, Administer over 1 Minutes, EVERY 4 MIN PRN, sedation, If inadequate response may repeat 0.5 mg IV slowly every 4 minutes PRN sedation until desired response; when verbally requested by provider., Starting on Wed03/15/24 at 0932, Doses can be exceeded under direct oversight of patient by physician. This drug may cause significant respiratory depression. Monitor respiratory status and vital signs carefully for 1 hour after each dose., IR Intra-procedure 0942 ($Given - Provi rosita: Neda Cook RN) naloxone (NARCAN) injection 0.2 mg(Linked Group 1) 0.2 mg, Intravenous, EVERY 2 MIN PRN, opioid reversal, Starting on Wed03/15/24 at 0839, Administer intravenous route when available and notify provider when administered. For unintended sedation or respiratory depression if all of the below criteria are met: ~ respiratory rate LESS than or EQUAL to 8. ~SaO2 less than 92% and or/end-tidal CO2 is greater than 50. ~ the patient is receiving an opioid, has unintended sedations assessed as RASS (-3), and is currently not on mechanical ventilation. RASS scale moderate (-3) is movement or eye opening to voice but no eye contact. Patient Monitoring Once the patient has demonstrated a response to the naloxone, continue to monitor respiratory rate, depth, oxygen saturation and end-tidal CO2 (if available) every 15 minutes x 2, then every 30 minutes x 2, then every 1 hour x 1 after each naloxone dose. Consider transfer to ICU if patient respiratory parameters have not improved after 4 naloxone doses., IR Intra-procedure naloxone (NARCAN) injection 0.2 mg(Linked Group 1) 0.2 mg, Intramuscular, EVERY 2 MIN PRN, opioid reversal, Starting on Wed03/15/24 at 0839, Administer intramuscular if an intravenous route is not available and notify provider when administered. For unintended sedation or respiratory depression if all of the below criteria are met: ~ respiratory rate LESS than or EQUAL to 8. ~SaO2 less than 92% and or/end-tidal CO2 is greater than 50. ~ the patient is receiving an opioid, has unintended sedations assessed as RASS (-3), and is currently not on mechanical ventilation. RASS scale moderate (-3) is movement or eye opening to voice but no eye contact. Patient Monitoring Once the patient has demonstrated a response to the naloxone, continue to monitor respiratory rate, depth, oxygen saturation and end-tidal CO2 (if available) every 15 minutes x 2, then every 30 minutes x 2, then every 1 hour x 1 after each naloxone dose. Consider transfer to ICU if patient respiratory parameters have not improved after 4 naloxone doses., IR Intra-procedure naloxone (NARCAN) injection 0.2 mg(Linked Group 2) 0.2 mg, Intravenous, EVERY 2 MIN PRN, opioid reversal, Starting on Wed03/15/24 at 0932, Administer intravenous route when available and notify provider when administered. For unintended sedation or respiratory depression if all of the below criteria are met: ~ respiratory rate LESS than or EQUAL to 8. ~SaO2 less than 92% and or/end-tidal CO2 is greater than 50. ~ the patient is receiving an opioid, has unintended sedations assessed as RASS (-3), and is currently not on mechanical ventilation. RASS scale moderate (-3) is movement or eye opening to voice but no eye contact. Patient Monitoring Once the patient has demonstrated a response to the naloxone, continue to monitor respiratory rate, depth, oxygen saturation and end-tidal CO2 (if available) every 15 minutes x 2, then every 30 minutes x 2, then every 1 hour x 1 after each naloxone dose. Consider transfer to ICU if patient respiratory parameters have not improved after 4 naloxone doses., IR Intra-procedure naloxone (NARCAN) injection 0.2 mg(Linked Group 2) 0.2 mg, Intramuscular, EVERY 2 MIN PRN, opioid reversal, Starting on Wed03/15/24 at 0932, Administer intramuscular if an intravenous route is not available and notify provider when administered. For unintended sedation or respiratory depression if all of the below criteria are met: ~ respiratory rate LESS than or EQUAL to 8. ~SaO2 less than 92% and or/end-tidal CO2 is greater than 50. ~ the patient is receiving an opioid, has unintended sedations assessed as RASS (-3), and is currently not on mechanical ventilation. RASS scale moderate (-3) is movement or eye opening to voice but no eye contact. Patient Monitoring Once the patient has demonstrated a response to the naloxone, continue to monitor respiratory rate, depth, oxygen saturation and end-tidal CO2 (if available) every 15 minutes x 2, then every 30 minutes x 2, then every 1 hour x 1 after each naloxone dose. Consider transfer to ICU if patient respiratory parameters have not improved after 4 naloxone doses., IR Intra-procedure naloxone (NARCAN) injection 0.4 mg(Linked Group 1) 0.4 mg, Intravenous, EVERY 2 MIN PRN, opioid reversal, Starting on Wed03/15/24 at 0839, Administer intravenous route when available and notify provider when administered. For unintended sedation or respiratory depression if all of the below criteria are met: ~ respiratory rate LESS than or EQUAL to 8. ~ SaO2 less than 92% and or/end-tidal CO2 is greater than 50. ~ the patient is receiving an opioid, has unintended sedation assessed as RASS (-4) or (-5) and patient is currently not on mechanical ventilation. RASS scale (-4) is deep sedation with no response to voice but movement or eye opening to physical stimulation. RASS scale (-5) is unarousable. Patient Monitoring Once the patient has demonstrated a response to the naloxone, continue to monitor respiratory rate, depth, oxygen saturation and end-tidal CO2 (if available) every 15 minutes x 2, then every 30 minutes x 2, then every 1 hour x 1 after each naloxone dose. Consider transfer to ICU if patient respiratory parameters have not improved after 4 naloxone doses., IR Intra-procedure naloxone (NARCAN) injection 0.4 mg(Linked Group 1) 0.4 mg, Intramuscular, EVERY 2 MIN PRN, opioid reversal, Starting on Wed03/15/24 at 0839, Administer intramuscular if an intravenous route is not available and notify provider when administered. For unintended sedation or respiratory depression if all of the below criteria are met: ~ respiratory rate LESS than or EQUAL to 8. ~ SaO2 less than 92% and or/end-tidal CO2 is greater than 50. ~ the patient is receiving an opioid, has unintended sedation assessed as RASS (-4) or (-5) and patient is currently not on mechanical ventilation. RASS scale (-4) is deep sedation with no response to voice but movement or eye opening to physical stimulation. RASS scale (-5) is unarousable. Patient Monitoring Once the patient has demonstrated a response to the naloxone, continue to monitor respiratory rate, depth, oxygen saturation and end-tidal CO2 (if available) every 15 minutes x 2, then every 30 minutes x 2, then every 1 hour x 1 after each naloxone dose. Consider transfer to ICU if patient respiratory parameters have not improved after 4 naloxone doses., IR Intra-procedure naloxone (NARCAN) injection 0.4 mg(Linked Group 2) 0.4 mg, Intravenous, EVERY 2 MIN PRN, opioid reversal, Starting on Wed03/15/24 at 0932, Administer intravenous route when available and notify provider when administered. For unintended sedation or respiratory depression if all of the below criteria are met: ~ respiratory rate LESS than or EQUAL to 8. ~ SaO2 less than 92% and or/end-tidal CO2 is greater than 50. ~ the patient is receiving an opioid, has unintended sedation assessed as RASS (-4) or (-5) and patient is currently not on mechanical ventilation. RASS scale (-4) is deep sedation with no response to voice but movement or eye opening to physical stimulation. RASS scale (-5) is unarousable. Patient Monitoring Once the patient has demonstrated a response to the naloxone, continue to monitor respiratory rate, depth, oxygen saturation and end-tidal CO2 (if available) every 15 minutes x 2, then every 30 minutes x 2, then every 1 hour x 1 after each naloxone dose. Consider transfer to ICU if patient respiratory parameters have not improved after 4 naloxone doses., IR Intra-procedure naloxone (NARCAN) injection 0.4 mg(Linked Group 2) 0.4 mg, Intramuscular, EVERY 2 MIN PRN, opioid reversal, Starting on Wed03/15/24 at 0932, Administer intramuscular if an intravenous route is not available and notify provider when administered. For unintended sedation or respiratory depression if all of the below criteria are met: ~ respiratory rate LESS than or EQUAL to 8. ~ SaO2 less than 92% and or/end-tidal CO2 is greater than 50. ~ the patient is receiving an opioid, has unintended sedation assessed as RASS (-4) or (-5) and patient is currently not on mechanical ventilation. RASS scale (-4) is deep sedation with no response to voice but movement or eye opening to physical stimulation. RASS scale (-5) is unarousable. Patient Monitoring Once the patient has demonstrated a response to the naloxone, continue to monitor respiratory rate, depth, oxygen saturation and end-tidal CO2 (if available) every 15 minutes x 2, then every 30 minutes x 2, then every 1 hour x 1 after each naloxone dose. Consider transfer to ICU if patient respiratory parameters have not improved after 4 naloxone doses., IR Intra-procedure sodium chloride (PF) 0.9% PF flush 3 mL 3 mL, Intracatheter, EVERY 1 MIN PRN, line flush, other, to ensure patency or to lock dormant line, Starting on Wed03/15/24 at 0759, IR Pre-procedure sodium chloride (PF) 0.9% PF flush 3-20 mL 3-20 mL, Intracatheter, EVERY 1 MIN PRN, line flush, post meds or blood draw, Starting on Wed03/15/24 at 0801, PIV: 3 mL after each use & PRN to access patency Midline, valved catheters, or PORT- 10mL after each use, PRN to access patency, 20 mL post blood draw Non-valved catheters: 10 mL after each use & PRN to access patency; 20mL flush pre and post blood draws or blood administration Apheresis: only for use when patient is NOT under care of apheresis services; 10 mL after each use & PRN to assess patency; 20 mL after blood draw. 0838 ($Given - Provi rosita: Montserrat Diaz RN)1209 ($Given - Provider: Bindu Pham RN) Linked Groups Order Group 1: naloxone (NARCAN) injection 0.2 mgJump to med 0.2 mg, Intravenous, EVERY 2 MIN PRN, opioid reversal, Starting on Wed03/15/24 at 0839, Administer intravenous route when available and notify provider when administered. For unintended sedation or respiratory depression if all of the below criteria are met: ~ respiratory rate LESS than or EQUAL to 8. ~SaO2 less than 92% and or/end-tidal CO2 is greater than 50. ~ the patient is receiving an opioid, has unintended sedations assessed as RASS (-3), and is currently not on mechanical ventilation. RASS scale moderate (-3) is movement or eye opening to voice but no eye contact. Patient Monitoring Once the patient has demonstrated a response to the naloxone, continue to monitor respiratory rate, depth, oxygen saturation and end-tidal CO2 (if available) every 15 minutes x 2, then every 30 minutes x 2, then every 1 hour x 1 after each naloxone dose. Consider transfer to ICU if patient respiratory parameters have not improved after 4 naloxone doses., IR Intra- procedure Or naloxone (NARCAN) injection 0.4 mgJump to med 0.4 mg, Intravenous, EVERY 2 MIN PRN, opioid reversal, Starting on Wed03/15/24 at 0839, Administer intravenous route when available and notify provider when administered. For unintended sedation or respiratory depression if all of the below criteria are met: ~ respiratory rate LESS than or EQUAL to 8. ~ SaO2 less than 92% and or/end-tidal CO2 is greater than 50. ~ the patient is receiving an opioid, has unintended sedation assessed as RASS (-4) or (-5) and patient is currently not on mechanical ventilation. RASS scale (-4) is deep sedation with no response to voice but movement or eye opening to physical stimulation. RASS scale (-5) is unarousable. Patient Monitoring Once the patient has demonstrated a response to the naloxone, continue to monitor respiratory rate, depth, oxygen saturation and end-tidal CO2 (if available) every 15 minutes x 2, then every 30 minutes x 2, then every 1 hour x 1 after each naloxone dose. Consider transfer to ICU if patient respiratory parameters have not improved after 4 naloxone doses., IR Intra-procedure Or naloxone (NARCAN) injection 0.2 mgJump to med 0.2 mg, Intramuscular, EVERY 2 MIN PRN, opioid reversal, Starting on Wed03/15/24 at 0839, Administer intramuscular if an intravenous route is not available and notify provider when administered. For unintended sedation or respiratory depression if all of the below criteria are met: ~ respiratory rate LESS than or EQUAL to 8. ~SaO2 less than 92% and or/end-tidal CO2 is greater than 50. ~ the patient is receiving an opioid, has unintended sedations assessed as RASS (-3), and is currently not on mechanical ventilation. RASS scale moderate (-3) is movement or eye opening to voice but no eye contact. Patient Monitoring Once the patient has demonstrated a response to the naloxone, continue to monitor respiratory rate, depth, oxygen saturation and end-tidal CO2 (if available) every 15 minutes x 2, then every 30 minutes x 2, then every 1 hour x 1 after each naloxone dose. Consider transfer to ICU if patient respiratory parameters have not improved after 4 naloxone doses., IR Intra- procedure Or naloxone (NARCAN) injection 0.4 mgJump to med 0.4 mg, Intramuscular, EVERY 2 MIN PRN, opioid reversal, Starting on Wed03/15/24 at 0839, Administer intramuscular if an intravenous route is not available and notify provider when administered. For unintended sedation or respiratory depression if all of the below criteria are met: ~ respiratory rate LESS than or EQUAL to 8. ~ SaO2 less than 92% and or/end-tidal CO2 is greater than 50. ~ the patient is receiving an opioid, has unintended sedation assessed as RASS (-4) or (-5) and patient is currently not on mechanical ventilation. RASS scale (-4) is deep sedation with no response to voice but movement or eye opening to physical stimulation. RASS scale (-5) is unarousable. Patient Monitoring Once the patient has demonstrated a response to the naloxone, continue to monitor respiratory rate, depth, oxygen saturation and end-tidal CO2 (if available) every 15 minutes x 2, then every 30 minutes x 2, then every 1 hour x 1 after each naloxone dose. Consider transfer to ICU if patient respiratory parameters have not improved after 4 naloxone doses., IR Intra- procedure Group 2: naloxone (NARCAN) injection 0.2 mgJump to med 0.2 mg, Intravenous, EVERY 2 MIN PRN, opioid reversal, Starting on Wed03/15/24 at 0932, Administer intravenous route when available and notify provider when administered. For unintended sedation or respiratory depression if all of the below criteria are met: ~ respiratory rate LESS than or EQUAL to 8. ~SaO2 less than 92% and or/end-tidal CO2 is greater than 50. ~ the patient is receiving an opioid, has unintended sedations assessed as RASS (-3), and is currently not on mechanical ventilation. RASS scale moderate (-3) is movement or eye opening to voice but no eye contact. Patient Monitoring Once the patient has demonstrated a response to the naloxone, continue to monitor respiratory rate, depth, oxygen saturation and end-tidal CO2 (if available) every 15 minutes x 2, then every 30 minutes x 2, then every 1 hour x 1 after each naloxone dose. Consider transfer to ICU if patient respiratory parameters have not improved after 4 naloxone doses., IR Intra- procedure Or naloxone (NARCAN) injection 0.4 mgJump to med 0.4 mg, Intravenous, EVERY 2 MIN PRN, opioid reversal, Starting on Wed03/15/24 at 0932, Administer intravenous route when available and notify provider when administered. For unintended sedation or respiratory depression if all of the below criteria are met: ~ respiratory rate LESS than or EQUAL to 8. ~ SaO2 less than 92% and or/end-tidal CO2 is greater than 50. ~ the patient is receiving an opioid, has unintended sedation assessed as RASS (-4) or (-5) and patient is currently not on mechanical ventilation. RASS scale (-4) is deep sedation with no response to voice but movement or eye opening to physical stimulation. RASS scale (-5) is unarousable. Patient Monitoring Once the patient has demonstrated a response to the naloxone, continue to monitor respiratory rate, depth, oxygen saturation and end-tidal CO2 (if available) every 15 minutes x 2, then every 30 minutes x 2, then every 1 hour x 1 after each naloxone dose. Consider transfer to ICU if patient respiratory parameters have not improved after 4 naloxone doses., IR Intra-procedure Or naloxone (NARCAN) injection 0.2 mgJump to med 0.2 mg, Intramuscular, EVERY 2 MIN PRN, opioid reversal, Starting on Wed03/15/24 at 0932, Administer intramuscular if an intravenous route is not available and notify provider when administered. For unintended sedation or respiratory depression if all of the below criteria are met: ~ respiratory rate LESS than or EQUAL to 8. ~SaO2 less than 92% and or/end-tidal CO2 is greater than 50. ~ the patient is receiving an opioid, has unintended sedations assessed as RASS (-3), and is currently not on mechanical ventilation. RASS scale moderate (-3) is movement or eye opening to voice but no eye contact. Patient Monitoring Once the patient has demonstrated a response to the naloxone, continue to monitor respiratory rate, depth, oxygen saturation and end-tidal CO2 (if available) every 15 minutes x 2, then every 30 minutes x 2, then every 1 hour x 1 after each naloxone dose. Consider transfer to ICU if patient respiratory parameters have not improved after 4 naloxone doses., IR Intra- procedure Or naloxone (NARCAN) injection 0.4 mgJump to med 0.4 mg, Intramuscular, EVERY 2 MIN PRN, opioid reversal, Starting on Wed03/15/24 at 0932, Administer intramuscular if an intravenous route is not available and notify provider when administered. For unintended sedation or respiratory depression if all of the below criteria are met: ~ respiratory rate LESS than or EQUAL to 8. ~ SaO2 less than 92% and or/end-tidal CO2 is greater than 50. ~ the patient is receiving an opioid, has unintended sedation assessed as RASS (-4) or (-5) and patient is currently not on mechanical ventilation. RASS scale (-4) is deep sedation with no response to voice but movement or eye opening to physical stimulation. RASS scale (-5) is unarousable. Patient Monitoring Once the patient has demonstrated a response to the naloxone, continue to monitor respiratory rate, depth, oxygen saturation and end-tidal CO2 (if available) every 15 minutes x 2, then every 30 minutes x 2, then every 1 hour x 1 after each naloxone dose. 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 Assessment Noted Time PHQ-9 Depression Total Score: 4 02/21/20 24 1:54 PM CDT documented as of this encounter Care Teams Orthopedic Physician Relationship Specialty [place] [address] [place] [place] [address] PCP - General Family Medicine 04/22/23 [place] [address] [address] [place] [address] Assigned Pain Medication Provider 12/07/22 [place] [address] [address] [place] [address] Assigned PCP 01/23/23 [place] [address] [place] [address] Assigned Musculoskeletal Provider 01/23/23 Gregorio Dalton PA-C [address] [place] [address] Assigned Surgical Provider 05/22/23 Kingsley Garcia MD [address] [place] [address] Assigned Heart and Vascular Provider 08/07/23 [place] [address] [place] [address] Family Medicine 09/10/23 Master Shea PA-C [address] [place] [address] Physician Entry Level Sales Representative Gastroenterology 09/10/23 Allyssa Justice MD [facility] [address] [place] [address] Hematology & Oncology 12/10/23 Genaro Christian MD [address] [place] [address] Cardiovascular Disease 12/22/23 Master Shea PA-C [address] [place] [address] Assigned Gastroenterology Provider 12/23/23 Sienna Guillermo DO [address] [place] [address] Physician Cardiovascular Disease 01/18/24 documented as of this encounter
--- OUTSIDE RECORDS SUMMARY | 2024-03-25 18:15 | XMS_ITS | Encounter Summary ---
Author Name Unknown Organization [facility] Address [facility] [place] [address] Care Team Providers Care Operations Label Clerk Name Role Phone Segundo Mcclelland MD Unavailable [phone] Segundo Mcclelland MD Unavailable [phone] Qamar Jackson MD Unavailable Segundo Mcclelland MD Primary Care Provider + Gregorio Dalton PA-C Unavailable [phone] Kingsley Garcia MD Unavailable + [phone] Segundo Mcclelland MD Unavailable [phone] Master Shea PA-C Unavailable Allyssa Justice MD Unavailable [phone] Genaro Christian MD Unavailable [phone] Master Shea-Shirley Unavailable Sienna Guillermo DO Unavailable [phone] Encounter Details Date Type Department Care Team (Latest Contact Info) Description 03/02/2024 Travel Social History Tobacco Use Types Packs/Day [...] Description 05/09/2024 10:00 AM CDT Office Visit [facility] [address] [place] [address] [place] [address] [address] [id number] documented as of this encounter Visit Diagnoses Not on file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 Assessment Noted Time PHQ-9 Depression Total Score: 4 02/21/20 24 1:54 PM CDT documented as of this encounter Care Teams Operations Label Clerk Relationship Specialty Start [place] [address] [address] [id number] PCP - General Family Medicine 04/22/23 [place] [address] [address] [place] [id number] Assigned Pain Medication Provider 12/07/22 [place] [address] [address] [address] Assigned PCP 01/23/23 [place] [address] [place] [address] Assigned Musculoskeletal Provider 01/23/23 Gregorio Dalton PA-C [address] [address] Assigned Surgical Provider 05/22/23 Kingsley Garcia MD [address] [place] 795785 Assigned Heart and Vascular Provider 08/07/23 [place] [address] [address] [place] [address] Family Medicine 09/10/23 Master Shea PA-C [address] [place] [address] Physician Semiconductor Assembler Gastroenterology 09/10/23 Allyssa Justice MD [facility] [address] [place] [address] Hematology & Oncology 12/10/23 Genaro Christian MD [address] [place], [place] [address] Cardiovascular Disease 12/22/23 Master Shea PA-C [address] [place] [id number] Assigned Gastroenterology Provider 12/23/23 Sienna Guillermo DO [address] [place] [address] Physician Cardiovascular Disease 01/18/24 documented as of this encounter
--- OUTSIDE RECORDS SUMMARY | 2024-03-25 18:15 | XMS_ITS | Encounter Summary ---
Author Name Unknown Organization [facility] Address [address] [place] [id number] Care Team Providers Care Steamer Gum Candy Name Role Phone Segundo Mcclelland MD Unavailable [phone] Segundo Mcclelland MD Unavailable [phone] Qamar Jackson MD Unavailable Segundo Mcclelland MD Primary Care Provider + Gregorio Dalton PA-C Unavailable [phone] Kingsley Garcia MD Unavailable + [phone] Segundo Mcclelland MD Unavailable [phone] Master Shea PA-C Unavailable Allyssa Justice MD Unavailable [phone] Genaro Christian MD Unavailable [phone] Master Shea-Shirley Unavailable Sienna Guillermo DO Unavailable Reason for Visit * Reason Comments Back Injury Encounter Details Date Type Department Care Team (Late st Contact Info) Description 03/02/2024 1:22 PM CDT - 03/02/2024 10:51 PM CDT [facility] Emergency Dept [address] [place] [address] Janie Arellano MD [facility] [address] [place] [address] Kingsley [place] MD [facility] [address] [place] [address] Ting Arriaga DO [facility] [address] [place] [address] Acute midline low back pain without sciatica; Paresthesias Discharge Disposition: Home or Self Care Social [...] Sign Reading Time Taken Comments Blood Pressure 122/81 03/02/2024 10:45 PM CDT Pulse 109 03/02/2024 8:00 PM CDT Temperature 36.9 ??C (98.4 ??F) 03/02/2024 1:21 PM CD T Respiratory Rate 26 03/02/2024 1:21 PM CDT Oxygen Saturation 98% 03/02/2024 10:45 PM CDT Inhaled Oxygen Concentration - - Weight - - Height - - Body Mass Index - - documented in this encounter Discharge Instructions * Discharge Instructions* Janie Arellano MD - 03/02/2024 4:13 PM CDT Follow-up with your surgeon. Home pain medications. Return with new concerns. * Attachments The following attachments cannot be sent through Care Everywhere. * Numbness and Tingling (Ecuadorean) * Back Pain (Ecuadorean) documented in this encounter Medications at Time [...] as needed for anaphylaxis 1 each 04/17/2021 folic acid (FOLVITE) 1 MG tablet Take 1 mg by mouth daily gabapentin (NEURONTIN) 800 MG tablet Take 800 mg by mouth 3 times daily LORazepam (ATIVAN) 1 MG tablet Take 1 mg by mouth every 6 hours as needed for anxiety naloxone (NARCAN) 4 MG/0.1ML nasal spray Widener 4 mg into one nostril alternating nostrils once as needed for opioid reversal 06/28/2023 zolpidem (AMBIEN) 10 MG tablet Take 10 mg by mouth At Bedtime 12/17/2022 apixaban ANTICOAGULANT (ELIQUIS) 5 MG tabletIndications:Mult iple subsegmental pulmonary emboli without acute cor pulmonale (H) Take 1 tablet (5 mg) by mouth 2 times daily 180 tablet 1 01/06/2024 03/13/2024 cyclobenzaprine (FLEXERIL) 10 MG tabletIndications:Acut e low back pain with radicular symptoms, duration less than 6 weeks Take 1 tablet (10 mg) by mouth 3 times daily as needed for muscle spasms 20 tablet 1 02/23/2024 03/15/2024 HYDROmorphone (DILAUDID) 2 MG tabletIndications:Acut e low back pain with radicular symptoms, duration less than 6 weeks Take 1 tablet (2 mg) by mouth 2 times daily as needed for severe pain 10 tablet 03/03/2024 03/13/2024 HYDROmorphone (DILAUDID) 2 MG tabletIndications:Acut e low back pain with radicular symptoms, duration less than 6 weeks Take 1 tablet (2 mg) by mouth every 4 hours as needed for severe pain 10 tablet 02/29/2024 03/03/2024 loperamide (IMODIUM A-D) 2 MG tablet Take 1 tablet (2 mg) by mouth 4 times daily as needed for diarrhea 30 tablet 02/17/2024 03/06/2024 pantoprazole (PROTONIX) 40 MG EC tabletIndications:Jennifer roesophageal reflux disease with esophagitis, unspecified whether hemorrhage Take 1 tablet (40 mg) by mouth 2 times daily (before meals) 180 tablet 1 07/23/2023 03/06/2024 documented as of this encounter Progress Notes * Samra Blandon PA-C - 03/02/2024 8:18 PM CDT Contacted regarding 38 yo female anti-coagulated on Eliquis for PE with complicated psychiatric history and 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 Also c/o saddle anesthesia and incontinence. Of note, missed appt with [facility] last week for evaluation of back pain. Lumbar MRI in ER unremarkable for stenosis or surgical pathology. Endplate edema at L4-L5 likely represents Mobic changes. Lumbar MRI: IMPRESSION: 1. Multilevel lumbar spondylosis without high-grade spinal canal or neural foraminal stenosis. 2. Opposing endplate edema and associated enhancement at L4-L5. No abnormal enhancement in the intervertebral disc. No abnormal signal in the paraspinous soft tissues. This is favored to represent degenerative Modic type I change. Discitis osteomyelitis is not very likely given absence of disc enhancement and absence of paraspinous inflammatory/findings. If there is suspicion for discitis osteomyelitis, recommend follow-up imaging. RECOMMENDATIONS: No NS intervention indicated. If concern for early osteomyelitis consider inflammatory labs and consult with ID for recommendations on follow up imaging versus needle biopsy. Discussed with Dr. Salazar. Samra Blandon [facility] Neurosurgery [place] [address] Pager [phone] documented in this encounter ED Notes * Ting Arriaga, DO - 03/02/2024 10:15 PM CDT 10:15PM I received signout from Dr. [place]man regarding patient. She is a 38-year-old female with extensive past medical history presenting for back pain. Patient underwent MRI lumbar spine which is without evidence to suggest discitis/osteomyelitis though does show opposing endplate edema with associated enhancement at L4/L5. This is favored to represent degenerative Modic type I changes. My partner Dr. [place]man reportedly spoke to neurosurgery who recommended inflammatory markers. MR Lumbar Spine w/o & w Contrast Final Result IMPRESSION: 1. Multilevel lumbar spondylosis without high-grade spinal canal or neural foraminal stenosis. 2. Opposing endplate edema and associated enhancement at L4-L5. No abnormal enhancement in the intervertebral disc. No abnormal signal in the paraspinous soft tissues. This is favored to represent degenerative Modic type I change. Discitis osteomyelitis is not very likely given absence of disc enhancement and absence of paraspinous inflammatory/findings. If there is suspicion for discitis osteomyelitis, recommend follow-up imaging. 10:26 PM I spoke to ID physician, Dr. Amari Stevenson regarding patient's presentation and inflammatory marker elevation. No leukocytosis noted. No reported fevers. Patient has a history of bacteremia within the past year. She is in agreement no indication for further emergent workup based on presentation and recommends trending inflammatory markers in outpatient setting. Likely stress response. Patient is overall not septic appearing. Blood cultures have been sent. Patient was updated on need for close outpatient followup with neurosurgery as well as her PCP. Sheis ambulating around the room without difficulty. Return precautions given including fever, increasing pain, bladder/bowel incontinence or should symptoms worsen to promptly represent. Patient has a history of chronic opiate and benzo use so narcotics will not be administered on discharge. Patient was requesting additional narcotics prior to discharge and I stated unfortunately this would not be provided today. I offered lidocaine patches though she states only PCP can write her prescriptions. She plans to contact him tomorrow. Ting Arriaga DO 03/02/242231 Ting Arriaga, 03/02/248 * Cassandra Fontaine RN - 03/02/2024 9:31 PM CDT Spoke with pt via phone at 20:20 and 21:31. Educated pt on importance of being reevaluated since positive blood culture result. Pt expressed concerns for hospital anxiety. Pt stated she would wait for second blood culture results and/or additional symptoms before coming back to ED. PT verbalized understanding of need for reevaluation. Pt still opted to stay home and follow up with PCP. * Kingsley [place]man MD - 03/02/2024 8:31 PM CDT I took sign out on this patient from Dr. Stephenson. The patient said that she removed the couch and developed some numbness down her left leg and had increased pain. In reviewing the patient's care plan as well as previous visits the patient has chronic back pain. She admits to recent spinal surgeon randy ointments and presented here instead. She did have made several requests for pain medication. The MRI was reviewed and did show some signs of edema that would not explain any neurologic symptoms. Thepatient does not complain of fever or chills says that she has some numbness and pain. I discussed the case with Cathy from neurosurgery Kingsley [place]man MD 03/02/242032 * Rita Thornton RN - 03/02/2024 8:15 PM CDT Patient requesting pain medication, stating that the plan that was decided upon on her arrival to the ED is not being followed and that she is overdue for home Dilaudid. Patient crying, and hyperventilating in room. * Rita Thornton RN - 03/02/2024 7:10 PM CDT Patient had crm technical lead call from MRI to inform web content writer that she was due for pain medications 1 min prior to the time the tech is calling. Provider notified. * Kelly Laureano RN - 03/02/2024 6:24 PM CDT Author entered room to give pre meds for MRI. Pt. Appeared to be resting comfortably listening to music on her phone. As author spent more time in the room patient began to grunt and hold her breath and say that she was sweaty because her pain was uncontrolled. Author did not assess any diaphoresis. Pt. Updated on plan for MRI soon. Verbalized understanding. * Kelly Laureano RN - 03/02/2024 4:57 PM CDT Pt. Called out reporting that her pain is worse and that she does not think she can lay flat for the MRI because of the patient. Author re educated patient that the ED MD's would only be ordering heroral dilaudid in the same dosage and frequency as she takes at home. Author offered patient tylenol, toradol/ibuprofen, repositioning, heat/cold, and essential oils. Pt. Reports she took 1000 mg of tylenol at 1230 and that she has taken her 4000mg max today. Pt. 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 Pt. Declined repositioning but allowed author to fix her pillow. Pt. Currently using ice and says that she feels heat will worsen her pain. Pt. Reports she cannot use our essential oils because they make her sneeze. Author reminded patient that she would be given her home PO ativan prior to the MRI to ensure she is relaxed. Author also offered perhaps her home dose of gabapentin but patient reports she has taken all her doses today and does not want to overdose. Pt. Informed that nurse would notify provider of her increased pain. * Samantha Bravo - 03/02/2024 1:22 PM CDT Bed: ED28 Expected date: Expected time: Means of arrival: Comments: Triage LM * Rico Henao RN - 03/02/2024 1:17 PM CDT On 02/19 Pt was moving a couch to find a book for her daughter when she felt a pop in her lower back. Pt went to [facility] and was told it's bone on bone and you'll need surgery. This past Wednesday Pt was to meet with the neurosurgeon, Pt went to wrong O and missed the appointment. Pt hasn't been able to walk since last Wednesday, and pain is getting worse each day. Today around 0900 Pt noticed her groinis numb, left inner thigh is numb and left outer calf is numb. Pt denies incontinence, but states I can't feel anything so I really don't know. * Janie Arellano MD - 03/02/2024 12:59 PM CDT History Chief Complaint: Back Injury The history is provided by the patient and medical records. Sandi Lopez is a 38 year old female well-known to this emergency department with a past medical history of PE on Eliquis, POTS, chronic pain on opiates, and borderline personality disorder who presents alone for evaluation of back pain. She injured her back about 1.5 weeks ago moving a couch. Since then she has had midline low back pain. She reports she had an x-ray at [facility] and was told her spine was [id number] and she did not need an MRI but rather to see a surgeon right away. However, she reports she went to the wrong [facility] location on the date of her appointment 6 days ago and hasnot rescheduled this. She has had numbness of her left foot and lateral lower leg for presents to the emergency department today because she could not feel when she went to wipe after using the bathroom. She could feel that her bladder was full. She reports she had diarrhea in her chair last night and is uncertain if this is incontinence or possibly she was sleeping deeply. She denies fever. She was seen in this emergency department for her back pain 5 days ago. Independent Historian: None - Patient Only Review of External Notes: Reviewed the ER visit from 02/26/24. Reviewed hematology visit from yesterday where she was told to continue her Eliquis. Reviewed telephone encounter from today who told her to come to the ED. Reviewed patient's care plan. Medications: Eliquis Benadryl Epinephrine Neurontin Ativan Protonix Pyridium Ambien Sonata Klonopin Micronor Past Medical History: Anemia Atrial flutter Borderline personality disorder Depressive disorder Drug-seeking behavior Eating disorder GERD Gastroparesis Hypertension Kidney stone Kathleen-Mustafa tear Mesenteric lymphadenitis Mild persistent asthma Opioid [...] Transesophageal echocardiogram intraoperative Tubal ligation Physical Exam Patient Vitals for the past 24 hrs: BP Temp Temp src Pulse Resp SpO2 03/02/24 1509 -- -- -- -- -- 97 % 03/02/24 1508 -- -- -- -- -- 97 % 03/02/24 1507 -- -- -- -- -- 96 % 03/02/24 1506 106/82 -- -- 98 -- 98 % 03/02/24 1321 139/87 98.4 ??F (36.9 ??C) Oral (!) 134 26 97 % Physical Exam General: Well-developed and obese. Well appearing young woman. Cooperative. Head: Atraumatic. Eyes: Conjunctivae, lids, and sclerae are normal. ENT: Normal nose. Moist mucous membranes. Neck: Supple. Normal range of motion. CV: Warm and well-perfused. Resp: No respiratory distress. GI: Non-distended. MS: Normal ROM. No bilateral lower extremity edema. No reproducible lumbar midline or paraspinal tenderness. Skin: Warm. Non-diaphoretic. No pallor. Neuro: Awake. A&Ox3. 5 out of 5 strength plantarflexion and dorsiflexion on the left. 4 out of 5 strength with plantarflexion and dorsiflexion on the left. Subjectively decreased sensation to light touch on the lateral aspect of the left lower leg, medial aspect of the left thigh, and labia bilaterally. Psych: Normal mood and affect. Normal speech. Vitals reviewed. Emergency Department Course Imaging: MR Lumbar Spine w/o & w Contrast (Results Pending) Laboratory: Labs Ordered and Resulted from Time of ED Arrival to Time of ED Departure HEMOGLOBIN - Normal Result Value Hemoglobin 12.3 Emergency Department Course & Assessments: Interventions: Medications LORazepam (ATIVAN) tablet 1 mg (has no administration in time range) HYDROmorphone (DILAUDID) tablet 2 mg (2 mg Oral $Given 03/02/24 2372) Assessments: 1420 Obtained the patient's history and performed initial exam. Social Determinants of Health affecting care: Overuse of the emergency department Chronic opiate and benzodiazepine use Has children Disposition: Care of the patient was transferred to my colleague, Dr. [place]man, pending MRI results. Impression & Plan Medical Decision Making: Sandi is a 38-year-old woman with PE on Eliquis, chronic pain on opiates, and borderline personality disorder who is well-known to myself and this emergency department presenting today with low back pain. She was actually seen in this emergency department for this issue 5 days ago and reported then and again today that she accidentally missed an appointment to see her surgeon. She is returning because she reports new saddle anesthesia without urinary incontinence. Interestingly, although she told the provider at her last visit that she had had an MRI for this issue and even presented an MRIthat was without a date, she tells me she has not had an MRI for this episode of back pain. On examshe appears as she typically does without reproducible lumbar midline or paraspinal tenderness. Shedoes have decreased strength with plantarflexion and dorsiflexion on the left which may be pain or effort dependent. She has subjectively decreased sensation of the lateral aspect of the left lower leg, medial aspect of the left thigh, and labia bilaterally. Given new saddle anesthesia per her report, she will require MRI to rule out cauda equina syndrome. She is anticoagulated but hemoglobin is stable at 12.3 and I doubt an epidural hematoma as the cause for this pain. This patient has chronic pain and drug-seeking behaviors. She will not be provided IV narcotics in the emergency department. I did give her her home dose of 2 mg oral Dilaudid which could be administered every 4 hours. She also has claustrophobia and will require oral Ativan prior to her MRI but she does not require IV benzodiazepines. At the end of my shift she is awaiting MRI. She was endorsed to my partner, Dr. [place]man. Diagnosis: ICD-10-CM 1. Acute midline low back pain without sciatica M54.50 2. Paresthesias R20.2 Scribe Disclosure: I, Elliot Daniels, am serving as a scribe at 2:28 PM on 03/02/2024 to document services personally performed by Janie Arellano MD based on my observations and the provider's statements to me. 03/02/2024 Janie Arellano MD Dixson, Kylie S, MD 03/02/24 0631 documented in this encounter Plan of Treatment Upcoming Encounters Date Type Department Care Team (Late st Contact Info) Description 05/09/2024 10:00 AM CDT Office Visit [facility] [address] [place] [address] [place] [address] [place] [address] documented as of this encounter Procedures Procedure Name Priority Date/Time Associated Diagnosis Comments VERIGENE GP PANEL STAT 03/02/2024 9:1 0 PM CDT ERYTHROCYTE SEDIMENTATION RATE AUTO STAT 03/02/2024 9:10 PM CDT BLOOD CULTURE STAT 03/02/2024 9:10 PM CDT BLOOD CULTURE STAT 03/02/2024 8:42 PM CDT MR LUMBAR SPINE W/O & W CONTRAST STAT 03/02/2024 7:24 PM CDT EXTRA TUBE STAT 03/02/2024 1:42 PM CDT EXTRA PURPLE TOP TUBE STAT 03/02/2024 1:42 PM CDT EXTRA GREEN TOP (LITHIUM HEPARIN) TUBE STAT 03/02/2024 1:42 PM CDT EXTRA RED TOP TUBE STAT 03/02/2024 1: 42 PM CDT EXTRA BLUE TOP TUBE STAT 03/02/2024 1 :42 PM CDT CBC WITH PLATELETS AND DIFFERENTIAL STAT 03/02/2024 1:42 PM CDT CBC WITH PLATELETS & DIFFERENTIAL STAT 03/02/2024 1:42 PM CDT HEMOGLOBIN Add-On 03/02/2024 1:42 PM CDT CRP INFLAMMATION STAT 03/02/2024 1:42 PM CDT BASIC METABOLIC PANEL STAT 03/02/2024 1:42 PM CDT documented in this encounter Results * (ABNORMAL) Verigene GP Panel (03/02/2024 9:10 PM CDT) Pathologist [facility] Staphylococcus species Not Detected Not Detected 03/03/2024 [...] Streptococcus pyogenes and Streptococcus agalactiae. Performed using WhoKnows multiplex nucleic acid test. Final identification and [...] 03/03/2024 6:27 PM CDT Specimen tested with Verigene multiplex, gram-positive blood culture nucleic acid test for the following targets: Staphylococcus aureus, Staphylococcus epidermidis, Staphylococcus lugdunensis, other Staphylococcus species, Enterococcus faecalis, Enterococcus faecium, Streptococcus species, Streptococcus agalactiae, Streptococcus anginosus group, Streptococcus pneumoniae, Streptococcus pyogenes, Listeria species, mecA (methicillin resistance), and Ambrosio/vanB (vancomycin resistance). Kingsley [place]man MD LAB - MICRO GENE RAL ORDERABLES [facility] Inf. Diseases Diag. Lab [address] [facility], [address] [place], [place] [id number] * (ABNORMAL) Blood Culture Arm, Left (03/02/2024 9:10 PM CDT) Culture Positive on the 1st day of incubation(A) 03/05/2024 10:28 AM CDT [facility] Culture Streptococcus mitis/oralis(AA) 03/05/2024 10:28 AM CDT [facility] Comment:1 of 2 bottles Blood STRUCTURE OF LEFT UPPER LIMB / Unknown Venipuncture / Unknown 03/02/2024 9:10 PM CDT 03/02/2024 9:13 PM CDT Narrative Organism Antibiotic Method Susceptibility Streptococcus mitis/oralis Ampicillin SANFORD <=0.06 ug/mL: Susceptible Streptococcus mitis/oralis Penicillin SANFORD 0.12 ug/mL: Susceptible Streptococcus mitis/oralis Clindamycin SANFORD <=0.06 ug/mL: Susceptible Streptococcus mitis/oralis Cefotaxime SAN[place]ORD <=0.25 ug/mL: Susceptible Streptococcus mitis/oralis Ceftriaxone SAN[place]ORD <=0.25 ug/mL: Susceptible Streptococcus mitis/oralis Vancomycin SANFORD 0.5 ug/mL: Susceptible Streptococcus mitis/oralis Meropenem SANFORD <=0.06 ug/mL: Susceptible Kingsley [place]man MD LAB - MICRO GENE RAL ORDERABLES [facility] Inf. Diseases Diag. Lab [address] [facility], [address] [place] [id number], [facility] * Erythrocyte sedimentation rate auto (03/02/2024 9:10 PM CDT) Erythrocyte Sedimentation Rate 18 0 - 20 mm/hr 03/02/2024 9:44 PM CDT LABORATORY Blood STRUCTURE OF LEFT UPPER LIMB / Unknown Venipuncture / Unknown 03/02/2024 9:10 PM CDT 03/02/2024 9:13 PM CDT Kingsley [place]man MD LAB - BLOOD ORDE RABLES Performing Organization Address City/[facility]/ZIP Co de Phone Number LABORATORY [facility] Acute Care Lab [address] Lab (1st floor, no room number) [place] [address] * Blood Culture Arm, Right (03/02/2024 8:42 PM CDT) Culture No Growth 03/07/2024 11:02 PM CDT [facility] Blood STRUCTURE OF RIGHT UPPER LIMB / Unknown Venipuncture / Unknown 03/02/2024 8:42 PM CDT 03/02/2024 8:52 PM CDT Narrative [facility] - 03/07/2024 11:02 PM CDT Only an Aerobic Blood Culture Bottle was collected, interpret results with caution. Kingsley [place]man MD LAB - MICRO GENE RAL ORDERABLES [facility] Inf. Diseases Diag. Lab [address] [facility], Room [address] [address], [facility] * MR Lumbar Spine w/o & [...] LUMBAR SPINE W/O and W CONTRAST LOCATION: [facility] DATE: 03/02/2024 INDICATION: low back pain and [...] LUMBAR SPINE W/O and W CONTRAST LOCATION: [facility] DATE: 03/02/2024 INDICATION: low back pain and [...] Janie Arellano MD IMG MRI ORDERABLES * (ABNORMAL) CBC with platelets and differential (03/02/2024 1:42 PM CDT) WBC Count 10.0 4.0 - 11.0 10e3/uL 03/02/2024 9:43 PM CDT [facility] RBC Count 4.24 3.80 - 5.20 10e6/uL 03/02/2024 9:43 PM CDT [facility] Hemoglobin 12.3 11.7 - 15.7 g/dL 03/02/2024 9:43 PM CDT [facility] Hematocrit 38.5 35.0 - 47.0 % 03/02/2024 9:43 PM CDT [facility] MCV 91 78 - 100 fL 03/02/2024 9:43 PM CDT [facility] MCH 29.2 26.5 - 33.0 pg 03/02/2024 9:43 PM CDT [facility] MCHC 32.8 31.5 - 36.5 g/dL 03/02/2024 9:43 PM CDT [facility] RDW 17.7(H) 10.0 - 15.0 % 03/02/2024 9:43 PM CDT [facility] Platelet Count 365 150 - 450 10e3/uL 03/02/2024 9:43 PM CDT [facility] % Neutrophils 67 % 03/02/2024 9:43 PM CDT [facility] % Lymphocytes 24 % 03/02/2024 9:43 PM CDT [facility] % Monocytes 8 % 03/02/2024 9:43 PM CDT [facility] % Eosinophils 1 % 03/02/2024 9:43 PM CDT [facility] % Basophils 0 % 03/02/2024 9:43 PM CDT [facility] % Immature Granulocytes 0 % 03/02/2024 9:43 PM CDT [facility] NRBCs per 100 WBC 0 <1 /100 024 9:43 PM CDT [facility] Absolute Neutrophils 6.7 1.6 - 8.3 10e3/uL 03/02/2024 9:43 PM CDT [facility] Absolute Lymphocytes 2.4 0.8 - 5.3 10e3/uL 03/02/2024 9:43 PM CDT [facility] Absolute Monocytes 0.8 0.0 - 1.3 10e3/uL 03/02/2024 9:43 PM CDT [facility] Absolute Eosinophils 0.1 0.0 - 0.7 10e3/uL 03/02/2024 9:43 PM CDT [facility] Absolute Basophils 0.0 0.0 - 0.2 10e3/uL 03/02/2024 9:43 PM CDT [facility] Absolute Immature Granulocytes 0.0 <=0.4 10e3/uL 03/02/2024 9:43 PM CDT [facility] Absolute NRBCs 0.0 10e3/uL 03/02/2024 9:43 PM CDT [facility] Blood BLOOD SPECIMEN / Unknown Venipuncture / Unknown 03/02/2024 1:42 PM CDT 03/02/2024 1:46 PM CDT Kingsley [place]man MD LAB - BLOOD ORDOctavio LINO [facility] Care Lab [address] Lab (1st floor, no room number) [place] [id number] [place] [address] * (ABNORMAL) CRP inflammation (03/02/2024 1:42 PM CDT) [facility] CRP Inflammation 112.85(H) <5.00 mg/L 03/02/2024 9:02 PM CDT [facility] Blood BLOOD SPECIMEN / Unknown Venipuncture / Unknown 03/02/2024 1:42 PM CDT 03/02/2024 1:46 PM CDT Kingsley Hartman MD LAB - BLOOD ORDOctavio LINO [facility] [address] Lab (1st floor, no room number) [place] [id number] [place] [address] * (ABNORMAL) Basic metabolic panel (03/02/2024 1:42 PM CDT) Pathologist [facility] Sodium 135 135 - 145 mmol/L 03/02/2024 9:02 PM CDT [facility] Comment:Reference intervals for this test were updated on 08/24/2023 to more accurately reflect our healthy population. There may be differences in the flagging of prior results with similar values performed with this method. Interpretation of those prior results can be made in the context of the updated reference intervals. Potassium 3.9 3.4 - 5.3 mmol/L 03/02/2024 9:02 PM CDT [facility] Chloride 99 98 - 107 mmol/L 03/02/2024 9:02 PM CDT [facility] Carbon Dioxide (CO2) 21(L) 22 - 29 mmol/L 03/02/2024 9:02 PM CDT [facility] Anion Gap 15 7 - 15 mmol/L 03/02/2024 9:02 PM CDT [facility] Urea Nitrogen 12.5 6.0 - 20.0 mg/dL 03/02/2024 9:02 PM CDT [facility] Creatinine 0.72 0.51 - 0.95 mg/dL 03/02/2024 9:02 PM CDT [facility] GFR Estimate >90 >60 mL/min/1. 73m2 03/02/2024 9:02 PM CDT [facility] Calcium 9.1 8.6 - 10.0 mg/dL 03/02/2024 9:02 PM CDT [facility] Glucose 135(H) 70 - 99 mg/dL 03/02/2024 9:02 PM CDT [facility] Blood BLOOD SPECIMEN / Unknown Venipuncture / Unknown 03/02/2024 1:42 PM CDT 03/02/2024 1:46 PM CDT Kingsley Hartman MD LAB - BLOOD CIELO LINO [facility] Organization Address City/State/ZIP Co de Phone Number LABORATORY [facility] Lab [address] [facility] Lab (1st floor, no room number) [place] [address], [facility] * Hemoglobin (03/02/2024 1:42 PM CDT) Hemoglobin 12.3 11.7 - 15.7 g/dL 03/02/2024 2:27 PM CDT [facility] Blood BLOOD SPECIMEN / Unknown Venipuncture / Unknown 03/02/2024 1:42 PM CDT 03/02/2024 1:46 PM CDT Janie Arellano MD LAB - BLOOD ORDERABL ES [facility] [address] Lab (1st floor, no room number) [address] * Extra Purple Top Tube (03/02/2024 1:42 PM CDT) Hold Specimen [facility] 03/02/2024 2:47 PM CDT [facility] Blood BLOOD SPECIMEN / Unknown Venipuncture / Unknown 03/02/2024 1:42 PM CDT 03/02/2024 1:46 PM CDT Janie Arellano MD LAB - BLOOD ORDERABL ES Performing Organization Address City/[facility]/ZIP Co de Phone Number [facility] Lab [address] Lab (1st floor, no room number) [address] * Extra Green Top (Cassandra Heparin) Tube (03/02/2024 1:42 PM CDT) Hold Specimen [facility] 03/02/2024 2:47 PM CDT [facility] Blood BLOOD SPECIMEN / Unknown Venipuncture / Unknown 03/02/2024 1:42 PM CDT 03/02/2024 1:46 PM CDT Janie Arellano MD LAB - BLOOD ORDERABL ES [facility] [address] Lab (1st floor, no room number) [address] * Extra Red Top Tube (03/02/2024 1:42 PM CDT) Hold Specimen C 03/02/2024 2:47 PM CDT [facility] Blood BLOOD SPECIMEN / Unknown Venipuncture / Unknown 03/02/2024 1:42 PM CDT 03/02/2024 1:46 PM CDT Janie Arellano MD LAB - BLOOD ORDERABL ES [facility] [address] Lab (1st floor, no room number) [place] [address], [facility] * Extra Blue Top Tube (03/02/2024 1:42 PM CDT) Hold Specimen [facility] 03/02/2024 2:47 PM CDT LABORATORY Blood BLOOD SPECIMEN / Unknown Venipuncture / Unknown 03/02/2024 1:42 PM CDT 03/02/2024 1:46 PM CDT Janie Arellano MD LAB - BLOOD ORDERABL ES Performing Organization Address City/[facility]/ZIP Co de Phone Number [facility] [address] Lab (1st floor, no room number) [place] [address] documented in this encounter Visit Diagnoses Diagnosis Acute midline low back pain without sciatica Paresthesias Disturbance of skin sensation documented in this encounter Administered Medications Inactive Administered Medications - up to 3 most recent administrations Medication Order MAR Action Action Date Dose Rate Site gadobutrol (GADAVIST) injection 9 mL 9 mL, Intravenous, ONCE, On Wed03/02/24 at 1820, For 1 dose, Supplied by, and administered by MRI. $Given 03/02/2024 6:59 PM CDT 9 mLs HYDROmorphone (DILAUDID) tablet 2 mg 2 mg, Oral, ONCE, On Wed03/02/24 at 1425, For 1 dose $Given 03/02/2024 3:09 PM CDT 2 mg HYDROmorphone (DILAUDID) tablet 2 mg 2 mg, Oral, ONCE, On Wed03/02/24 at 2005, For 1 dose $Given 03/02/2024 8:07 PM CDT 2 mg Lidocaine (LIDOCARE) 4 % Patch 1 patch 1 patch, Transdermal, ONCE, Administer over 12 Hours, On Wed03/02/24 at 1710, For 1 dose, Apply patch(s) to low back. To prevent lidocaine toxicity, patient should be patch free for 12 hrs daily. Patches may be cut to smaller size prior to removing release liner. Reminder: Remove previous patch before applying new patch. NEVER APPLY HEAT OVER PATCH which increases absorption and may lead to local anesthetic toxicity. Do not apply over area where liposomal bupivacaine was injected for 96 hours post injection. $Patch/Med Applied 03/02/2024 5:07 PM CDT 1 patch Left Lower Back Lidocaine (LIDOCARE) 4 % Patch 1 patch 1 patch, Transdermal, ONCE, Administer over 12 Hours, On Wed03/02/24 at 2245, For 1 dose, Apply patch(s) to Back. To prevent lidocaine toxicity, patient should be patch free for 12 hrs daily. Patches may be cut to smaller size prior to removing release liner. Reminder: Remove previous patch before applying new patch. NEVER APPLY HEAT OVER PATCH which increases absorption and may lead to local anesthetic toxicity. Do not apply over area where liposomal bupivacaine was injected for 96 hours post injection. $Patch/Med Applied 03/02/2024 10:50 PM CDT 1 patch Left Lower Back lidocaine (LMX4) cream Topical, EVERY 1 HOUR PRN, pain, with VAD insertion, Starting on Wed03/02/24 at 2019, Apply at least 30 minutes prior to VAD insertion in divided doses as needed for size of site for insertion. MAX Dose: 2.5 g (?? of 5 g tube) Do NOT give if patient has a history of allergy to any local anesthetic or any ahsan product. Do NOT use both lidocaine intradermal/subcutaneou s injection and the lidocaine cream on the same site. lidocaine 1 % 0.1-1 mL 0.1-1 mL, Other, EVERY 1 HOUR PRN, mild pain with VAD insertion, Starting on Wed03/02/24 at 2020, MAX dose 1 mL subcutaneous OR intradermal along the side of the vein in divided doses as needed for VAD insertion. Do NOT give if patient has a history of allergy to any local anesthetic or any ahsan product. Do NOT use both lidocaine intradermal/subcutaneou s injection and the lidocaine cream on the same site. LORazepam (ATIVAN) tablet 1 mg 1 mg, Oral, ONCE, On Marleny 03/02/24 at 1505, For 1 dose $Given 03/02/2024 6:22 PM CDT 1 mg sodium chloride (PF) 0.9% PF flush 3 mL 3 mL, Intracatheter, EVERY 8 HOURS, First dose on Marleny 03/02/24 at 2024, to lock peripheral IV dormant line sodium chloride (PF) 0.9% PF flush 3 mL 3 mL, Intracatheter, EVERY 1 MIN PRN, line flush, other, to ensure patency or to lock dormant line, Starting on Marleny 03/02/24 at 2020 documented in this encounter Active and Recently Administered Medications Times are shown in CDT. Scheduled Medication Order 02/29/2024 03/01/2024 03/02/2024 gadobutrol (GADAVIST) injection 9 mL (COMPLETED) 9 mL, Intravenous, ONCE, On Marleny 03/02/24 at 1820, For 1 dose, Supplied by, and administered by MRI. 1859 ($Given - Provi rosita: Kingsley Verma) HYDROmorphone (DILAUDID) tablet 2 mg (COMPLETED) 2 mg, Oral, ONCE, On Marleny 03/02/24 at 1425, For 1 dose 1509 ($Given - Provi rosita: Kelly Laureano RN) HYDROmorphone (DILAUDID) tablet 2 mg (COMPLETED) 2 mg, Oral, ONCE, On Marleny 03/02/24 at 2005, For 1 dose 2007 ($Given - Provi rosita: Rita Thornton RN) Lidocaine (LIDOCARE) 4 % Patch 1 patch 1 patch, Transdermal, ONCE, Administer over 12 Hours, On Marleny 03/02/24 at 1710, For 1 dose, Apply patch(s) to low back. To prevent lidocaine toxicity, patient should be patch free for 12 hrs daily. Patches may be cut to smaller size prior to removing release liner. Reminder: Remove previous patch before applying new patch. NEVER APPLY HEAT OVER PATCH which increases absorption and may lead to local anesthetic toxicity. Do not apply over area where liposomal bupivacaine was injected for 96 hours post injection. 1707 ($Patch/Med Randy lied - Provider: Kelly Laureano RN)2251 (Due: Patch/Med Removed - Provider: Orders Generic Provider - Comment: Time automatically adjusted from order being discontinued) Lidocaine (LIDOCARE) 4 % Patch 1 patch 1 patch, Transdermal, ONCE, Administer over 12 Hours, On Marleny 03/02/24 at 2245, For 1 dose, Apply patch(s) to Back. To prevent lidocaine toxicity, patient should be patch free for 12 hrs daily. Patches may be cut to smaller size prior to removing release liner. Reminder: Remove previous patch before applying new patch. NEVER APPLY HEAT OVER PATCH which increases absorption and may lead to local anesthetic toxicity. Do not apply over area where liposomal bupivacaine was injected for 96 hours post injection. 2250 ($Patch/Med Randy lied - Provider: Rita Thornton, DONNA)225 (Due: Patch/Med Removed - Provider: Orders Generic Provider - Comment: Time automatically adjusted from order being discontinued) LORazepam (ATIVAN) tablet 1 mg (COMPLETED) 1 mg, Oral, ONCE, On Marleny 03/02/24 at 1505, For 1 dose 182 ($Given - Provi rosita: Kelly Laureano RN) sodium chloride (PF) 0.9% PF flush 3 mL 3 mL, Intracatheter, EVERY 8 HOURS, First dose on Wed03/02/24 at 2024, to lock peripheral IV dormant line 2024 (Canceled Entry - Provider: Orders Generic Provider - Comment: Automatically canceled at discontinue of medication order) PRN Medication Order 02/29/2024 03/01/2024 03/02/2024 lidocaine (LMX4) cream Topical, EVERY 1 HOUR PRN, pain, with VAD insertion, Starting on Wed03/02/24 at 2019, Apply at least 30 minutes prior to VAD insertion in divided doses as needed for size of site for insertion. MAX Dose: 2.5 g (?? of 5 g tube) Do NOT give if patient has a history of allergy to any local anesthetic or any ahsan product. Do NOT use both lidocaine intradermal/subcutaneous injection and the lidocaine cream on the same site. lidocaine 1 % 0.1-1 mL 0.1-1 mL, Other, EVERY 1 HOUR PRN, mild pain with VAD insertion, Starting on Wed03/02/24 at 2019, MAX dose 1 mL subcutaneous OR intradermal along the side of the vein in divided doses as needed for VAD insertion. Do NOT give if patient has a history of allergy to any local anesthetic or any ahsan product. Do NOT use both lidocaine intradermal/subcutaneous injection and the lidocaine cream on the same site. 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 Assessment Noted Time PHQ-9 Depression Total Score: 4 02/21/20 1:54 PM CDT documented as of this encounter Care Teams Steamer Gum Candy Relationship Specialty [place] [address] [address] [address] PCP - General Family Medicine 04/22/23 [place] [address] [address] [address] Assigned Pain Medication Provider 12/07/22 [place] [address] [place] [address] Assigned PCP 01/23/23 [place] [address] [place] [address] Assigned Musculoskeletal Provider 01/23/23 Gregorio Dalton PA-C [address] [address] Assigned Surgical Provider 05/22/23 Kingsley Garcia MD [address] [place] [address] Assigned Heart and Vascular Provider 08/07/23 [place] [address] [place] [address] Family Medicine 09/10/23 Master Shea PA-C [address] [place] [address] Physician Coil Winder Repair Gastroenterology 09/10/23 Allyssa Justice MD [facility] [address] [place] [address] [place] [address]87[address] Hematology & Oncology 12/10/23 Genaro Christian MD [address] [place] [address] Cardiovascular Disease 12/22/23 Master Shea PA-C [address] [place] [address] Assigned Gastroenterology Provider 12/23/23 Sienna Guillermo DO [address] [place] [address] Physician Cardiovascular Disease 01/18/24 documented as of this encounter
--- OUTSIDE RECORDS SUMMARY | 2024-03-25 18:15 | XMS_ITS | Encounter Summary ---
Author Name Unknown Organization [place] Address [facility] [place] [address] Care Team Providers Care Hat Mender Name Role Phone Segundo Mcclelland MD Unavailable [phone] Segundo Mcclelland MD Unavailable [phone] Qamar Jackson MD Unavailable Segundo Mcclelland MD Primary Care Provider + Gregorio Dalton PA-C Unavailable [phone] Kingsley Garcia MD Unavailable + [phone] Segundo Mcclelland MD Unavailable [phone] Master Shea PA-C Unavailable Allyssa Justice MD Unavailable [phone] Genaro Christian MD Unavailable [phone] Master Shea-Shirley Unavailable Sienna Guillermo DO Unavailable [phone] Reason for Visit * Reason Onset Date Comments Refill Request 02/28/2024 Encounter Details Date Type Department Care Team (Late st Contact Info) Description 02/28/2024 MyC Refadrianne [facility] [address] [place] [address] [place] [address] [place], [place] [phone] Refill Request Social History Tobacco Use Types [...] Description 05/09/2024 10:00 AM CDT Office Visit [facility] [address] [facility] [place] [address] [place] [address] [place] [address] documented as of this encounter Visit Diagnoses Diagnosis Acute low back pain with radicular symptoms, duration less than 6 weeks 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 Assessment Noted Time PHQ-9 Depression Total Score: 4 02/21/20 24 1:54 PM CDT documented as of this encounter Care Teams Hat Mender Relationship Specialty Start [place] [address] [address] [address] PCP - General Family Medicine 04/22/23 [place] [address] [address] [address] Assigned Pain Medication Provider 12/07/22 [place] [address] [address] [address] Assigned PCP 01/23/23 [place] [address] [place] [address] Assigned Musculoskeletal Provider 01/23/23 Gregorio Dalton PA-C [address] [address] Assigned Surgical Provider 05/22/23 Kingsley Garcia MD [address] [place] [address] Assigned Heart and Vascular Provider 08/07/23 [place] [address] [address] [address] Family Medicine 09/10/23 Master Shea PA-C [address] [place] [address] Physician Preformer [employer] Gastroenterology 09/10/23 Allyssa Justice MD [facility] [address] [place] [address] [place] [address]12[address] Hematology & Oncology 12/10/23 Genaro Christian MD [address] [place], [place] [address] Cardiovascular Disease 12/22/23 Master Shea PA-C [address] [place] [address] Assigned Gastroenterology Provider 12/23/23 Sienna Guillermo DO [address] [place] [address] Physician Cardiovascular Disease 01/18/24 documented as of this encounter
--- OUTSIDE RECORDS SUMMARY | 2024-03-25 18:15 | XMS_ITS | Encounter Summary ---
Author Name Unknown Organization [place] Address [address] [place] [address] Care Team Providers Care Ecotherapist Name Role Phone Segundo Mcclelland MD Unavailable [phone] Segundo Mcclelland MD Unavailable [phone] Qamar Jackson MD Unavailable Segundo Mcclelland MD Primary Care Provider + Gregorio Dalton PA-C Unavailable [phone] Kingsley Garcia MD Unavailable + [phone] Segundo Mcclelland MD Unavailable [phone] Master Shea PA-C Unavailable Allyssa Justice MD Unavailable [phone] Genaro Christian MD Unavailable [phone] Master Shea-Shirley Unavailable Sienna Guillermo DO Unavailable [phone] Reason for Visit * Reason Onset Date Comments *-*INCOMING RECORDS*-* 03/01/2024 Anemia, u nspecified type [D64.9] Encounter Details Date Type Department Care Team (Late st Contact Info) Description 03/01/2024 PRE VISIT [facility] [address] [place] [address] [facility] [place] [phone] Allyssa Justice MD [facility] [address] [place] [address] *-*INCOMING RECORDS*-* (Anemia, unspecified type [D64.9]) Social History Tobacco Use Types Packs/Day Years Used Date Smoking Tobacco: Never Passive Smoke Exposure: Never Smokeless Tobacco: Never Alcohol Use Standard Drinks/Week Comments Yes 0 (1 standard drink = 0.6 oz pur e alcohol) occasional PHQ-2 Answer Date Recorded PHQ-2 Score 1 09/24/2023 Adolescent Education Answer Date Record ed Getting [...] encounter Miscellaneous Notes * Telephone Encounter - Manpreet Rojas - 02/03/2024 2:00 PM CST RECORDS STATUS - ALL OTHER DIAGNOSIS RECORDS RECEIVED FROM: [facility] - Internal records DATE RECEIVED: 02/02 D OVEN OPERATOR documented in this encounter Plan of Treatment Upcoming Encounters Date Type Department Care Team (Late st Contact Info) Description 05/09/2024 10:00 AM CDT Office Visit [facility] [place] [address] [address] [address] [place] [address] [address] [address] documented as of this encounter Visit Diagnoses Not on file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 Assessment Noted Time PHQ-9 Depression Total Score: 4 02/21/20 1:54 PM CDT documented as of this encounter Care Teams Ecotherapist Relationship Specialty Start [place] [address] [place] [address] PCP - General Family Medicine 04/22/23 [place] [address] [place] [address] Assigned Pain Medication Provider 12/07/22 [place] [address] [address] [address] Assigned PCP 01/23/23 [place] [address] [address] [place] [address] Assigned Musculoskeletal Provider 01/23/23 Gregorio Dalton PA-C [address] [address] Assigned Surgical Provider 05/22/23 Kingsley Garcia MD [address] [place] [address] Assigned Heart and Vascular Provider 08/07/23 [place] [address] [address] [place] [address] Family Medicine 09/10/23 Master Shea PA-C [address] [place] [address] Physician Chopper Operator Gastroenterology 09/10/23 Allyssa Justice MD [facility] [address] [place] [address] [place] [address] Hematology & Oncology 12/10/23 Genaro Christian MD [address] [place] [address] Cardiovascular Disease 12/22/23 Master Shea PA-C [address] [place] [address] Assigned Gastroenterology Provider 12/23/23 Sienna Guillermo DO [address] [place] [address] Physician Cardiovascular Disease 01/18/24 documented as of this encounter
--- OUTSIDE RECORDS SUMMARY | 2024-03-25 18:15 | XMS_ITS | Encounter Summary ---
Author Name Unknown Organization [place] Address [facility]ly [facility] [place] [address] Care Team Providers Care Gypsum Calciner Name Role Phone Segundo Mcclelland MD Unavailable [phone] Segundo Mcclelland MD Unavailable [phone] Qamar Jackson MD Unavailable Segundo Mcclelland MD Primary Care Provider + Gregorio Dalton PA-C Unavailable [phone] Kingsley Garcia MD Unavailable + [phone] Segundo Mcclelland MD Unavailable [phone] Master Shea PA-C Unavailable Allyssa Justice MD Unavailable [phone] eGnaro Christian MD Unavailable [phone] Master Shea-Shirley Unavailable Sienna Guillermo DO Unavailable [phone] Reason for Referral * Care Coordination (Routine: Next available opening) - Pending Review Specialty Diagnoses / Procedures Referred By Contzbigniew t Referred To Contact Diagnoses Osteomyelitis, unspecified site, unspecified type (H) Masood Amato MD [address] [place] [address] Referral ID Status Reason Start Date Expiration Date V isits Requested Visits Authorized [id number] Pending Review 03/14/2024 03/14/2025 1 1 Question Answer Reason for Referral: Care Transition Transition: Home care discharge Clinical Staff have discussed the Care Coordination Referral with the patient and/or caregiver: No Comments * Consultation (Routine: Next available opening) Specialty Diagnoses / Procedures Referred By Contac t Referred To Contact [facility] [address] [place] [address] Referral ID Status Reason Start Date Expiration Date Visits Re quested Visits Authorized Question Answer Preferred Location: [facility] - [phone] * Therapeutic Imaging/IR (Emergency: 1-2 Days) - Pending Review Specialty Diagnoses / Procedures Referred By Contac t Referred To Contact Radiology. Diagnoses Osteomyelitis, unspecified site, unspecified type (H) Procedures IR Referral IR Referral Masood Amato MD [address] [place] [address] Referral ID Status Reason Start Date Expiration Date V isits Requested Visits Authorized [id number] Pending Review 03/13/2024 03/13/2025 1 1 * Rehab Therapy Physical Therapy (Routine: Next available opening) - Pending Review Specialty Diagnoses / Procedures Referred By Contac t Referred To Contact Diagnoses Chronic bilateral low back pain without sciatica Masood Amato MD [address] [place] [address] Referral ID Status Reason Start Date Expiration Date V isits Requested Visits Authorized [id number] Pending Review 03/10/2024 03/10/2025 1 1 Question Answer Course of Action: Evaluation and Treatment Specialty Services: Per Associated Diagnosis Scheduling Instructions: [facility] will call you to coordinate your care as prescribed by your provider. If you don't hear from a visitor services representative within 2 business days, please call . Comments Please be aware that coverage of these services is subject to the terms and limitations of your health insurance plan. Call member services at your health plan with any benefit or coverage questions. [facility] will call you to coordinate your care as prescribed by your provider. If you don't hear from a visitor services representative within 2 business days, please call . Reason for Visit * Reason Comments Abnormal Labs Fever * Auth/Cert (Routine) Specialty Diagnoses / Procedures Referred By Contac t Referred To Contact EMERGENCY MEDICINE Diagnoses Hypokalemia Positive blood culture Anemia Back pain Hypokalemia Emergency Dept [address] [place] [address] Referral ID Status Reason Start Date Expiration Date Visits Re quested Visits Authorized [id number] 1 1 Encounter Details Date Type Department Care Team (Late st Contact Info) Description 03/05/2024 8:55 PM CDT - 03/13/2024 5:17 PM CDT Hospital Encounter [facility] [address] [place] [address] Sam Schofield MD [facility] [address] [place] [address] Ady Thurston MD [address], [place] [id number] Lesley Nair MD [facility] [address] [place], [place] [address] Osteomyelitis, unspecified site, unspecified type (H) (Primary Dx); Positive blood culture; Anemia; Back pain; Hypokalemia; Chronic bilateral low back pain without sciatica; Multiple subsegmental pulmonary emboli without acute cor pulmonale (H); Acute low back pain with radicular symptoms, duration less than 6 weeks; Discitis, unspecified spinal region Discharge Disposition: Home or Self Care Social [...] Sign Reading Time Taken Comments Blood Pressure 111/56 03/13/2024 7:00 AM CDT Pulse 100 03/13/2024 7:00 AM CDT Temperature 36.2 ??C (97.1 ??F) 03/13/2024 7:00 AM CD T Respiratory Rate 22 03/13/2024 7:00 AM CDT Oxygen Saturation 98% 03/13/2024 7:00 AM CDT Inhaled Oxygen Concentration - - Weight 107.3 kg (236 lb 8.9 oz) 03/13/2024 6:42 AM CDT Height 167.6 cm (5' 6) 03/05/2024 8:53 PM CDT Body Mass Index 38.18 03/05/2024 8:53 PM CDT documented in this encounter Discharge Summaries * Masood Amato MD - 03/13/2024 2:59 PM CDT [facility] Hospitalist Discharge Summary Date of Admission: 03/05/2024 Date of Discharge: 03/13/2024 5:17 PM Discharging Provider: Masood Amato MD Discharge Service: Hospitalist Service Discharge Diagnoses Multiple episodes of recurrent bacteremia of unclear source, ESBL Klebsiella during this hospitalization. Acute on chronic low back pain, possible L4-L5 osteomyelitis, will get biopsy by IR as an outpatient. Drug reaction to Venofer. History of PE, on chronic anticoagulation. Acute on chronic anemia. Nausea and vomiting, history of gastroparesis. Hypokalemia. Postural orthostatic tachycardia syndrome. Anxiety and major depressive disorder. Borderline personality disorder. Drug-seeking behavior. Chronic pain, suspected benzodiazepine and narcotic abuse. Morbid obesity. History of nephrolithiasis. Clinically Significant Risk Factors # Obesity: Estimated body mass index is 38.18 kg/m?? as calculated from the following: Height as of this encounter: 1.676 m (5' 6). Weight as of this encounter: 107.3 kg (236 lb 8.9 oz). # Moderate Malnutrition: based on nutrition assessment Follow-ups Needed After Discharge Follow-up Appointments Follow-up and recommended labs and tests Follow up with primary care provider, Segundo Mcclelland, within 7 days for hospital follow- up. The following labs/tests are recommended: CBC, BMP and CRP. Follow-up with infectious disease in 1 week. Get lumbar spinal biopsy by interventional radiology at [facility] within next 2 days. Hold your apixaban till then. If your biopsy is not done in next 2 days, you can resume taking apixaban at prior to admission doses and stop it for 2 days before the planned day of biopsy. Call with questions - [phone] { Unresulted Labs Ordered in the Past 30 Days of this Admission Date and Time Order Name Status Description 03/09/2024 4:19 AM Blood Culture Hand, Left Preliminary 03/06/2024 8:50 PM Prepare red blood cells (unit) Preliminary 03/06/2024 8:50 PM Prepare red blood cells (unit) Preliminary These results will be followed up by hospitalist team Discharge Disposition Discharged to home Condition at discharge: Stable Hospital Course 38-year-old female who has a port in place for weekly IV hydration due to chronic nausea and vomiting due to gastroparesis, and the port was placed on 02/04/2024. She has had multiple episodes of bacteremia due to line infection versus unclear infectious source. She also has chronic back pain with previous lumbar discectomy for herniation and is on a pain contract. She was seen in ER on 02/25 and 03/02 with acute on chronic low back pain with numbness down the left side and left-sided weakness. Lumbar MRI showed L4-L5 opposing and plate edema, but had no enhancement of intervertebral disc or paraspinous tissues and osteomyelitis was felt to be less likely. She is afebrile with heart rate 113. Her CRP was elevated at 142 and ESR at 37 were high. Sepsis, ESBL ESBL bacteremia. Suspected to lumbar osteomyelitis. Initial blood cultures from 03/02 grew Streptococcus mitis in 1 out of 2 bottles and was deemed to becontaminant. Patient had recurrent rigors and blood cultures drawn on 03/08 and came positive forESBL Klebsiella and was started on Invanz. Patient did have mild allergic reaction to Invanz with rash on her chest. Her port was not changed as it was just recently placed. She was also discharged on prophylactic fluconazole to prevent candidal vaginitis as per ID recommendations. Patient will follow-up outpatient at site to get biopsy of her L4-L5 spine by interventional radiology at [facility]. I offered to transfer her to [facility] as inpatient but she prefers to go home and see them on Wednesday. Patient was advised to hold her Eliquis till her biopsy is done. Allergic reaction to Venofer versus acute sepsis causing rigors incidentally while getting Venofer infusion to the port which was potentially infected. Patient was treated with Solu-Medrol. History of pulmonary embolism. Most recently November 2023 on Eliquis 5 mg twice daily. Eliquis was held on discharge in anticipation of lumbar spinal biopsy in 2 days. She was instructed that if the biopsy is delayed, she should resume her Eliquis and hold it for 2 days before the planned procedure. Consultations This Hospital Stay INFECTIOUS DISEASES IP CONSULT NEUROSURGERY IP CONSULT ORAL SURGERY IP CONSULT CARE MANAGEMENT / SOCIAL WORK IP CONSULT PHYSICAL THERAPY ADULT IP CONSULT INTERVENTIONAL RADIOLOGY ADULT/PEDS IP CONSULT PHARMACY IP CONSULT Code Status Full Code Time Spent on this Encounter IMasood MD, personally saw the patient today and spent greater than 30 minutes discharging this patient. Masood Amato MD [facility] [address] [facility] [address] Physical Exam Vital Signs: Temp: 97.1 ??F (36.2 ??C) Temp src: Temporal BP: 111/56 Pulse: 100 Resp: 22 SpO2: 98 %O2 Device: None (Room air) Weight: 236 lbs 8.86 oz General Appearance: Morbidly obese female. Respiratory: Clear to auscultation. Cardiovascular: S1-S2 normal GI: Soft and nontender Skin: No rash Other: No edema Primary Care Physician Segundo Mcclelland Discharge Orders IR Referral Last dose of apixaban on the morning of 03/12. Needs L4-5 disc and possible bone biopsy for culture and pathology. Physical Therapy [employer] Designer Referral Home Infusion Referral Reason for your hospital stay Bacteremia, sepsis. Suspected lumbar osteomyelitis. Activity Your activity upon discharge: activity as tolerated Resume Home Care Services Follow-up and recommended labs and tests Follow up with primary care provider, Segundo Mcclelland, within 7 days for hospital follow- up. The following labs/tests are recommended: CBC, BMP and CRP. Follow-up with infectious disease in 1 week. Get lumbar spinal biopsy by interventional radiology at [facility] within next 2 days. Holdyour apixaban till then. If your biopsy is not done in next 2 days, you can resume taking apixaban at prior to admission doses and stop it for 2 days before the planned day of biopsy. Call with [email or web address] - [phone] Surgical Pathology Exam Microbiology Isolate Referral Diet Follow this diet upon discharge: Orders Placed This Encounter Snacks/Supplements Adult: Gelatein Plus; Between Meals Regular Diet Adult Significant Results and Procedures Most Recent 3 CBC's: Recent Labs Lab Test 03/13/24 1313 03/12/24 0533 03/09/24 0618 WBC 7.1 7.8 24.7* HGB 10.6* 9.3* 9.0* MCV 90 92 91 PLT 311 238 223 Most Recent 3 BMP's: Recent Labs Lab Test 03/12/24 0533 03/09/24 0618 03/06/24 1649 NA 138 140 137 POTASSIUM 4.0 4.0 3.4 CHLORIDE 102 103 101 CO2 26 27 21* BUN 15.1 7.0 3.8* CR 0.71 0.54 0.73 ANIONGAP 10 10 15 KATERINA 8.8 8.7 8.8 GLC 113* 94 128* Most Recent 2 LFT's: Recent Labs Lab Test 03/05/24 2148 01/15/24 0141 AST 46* 97* ALT 98* 149* ALKPHOS 348* 321* BILITOTAL 0.2 0.2 , Results for orders placed or performed during the hospital encounter of 03/05/24 CT Abdomen Pelvis w/o Contrast Narrative EXAM: CT ABDOMEN PELVIS W/O CONTRAST LOCATION: [facility] DATE: 03/11/2024 INDICATION: Bacteremia, assess for [...] adnexal lesions or free fluid. MUSCULOSKELETAL: Normal. Impression IMPRESSION: 1. No inflammatory changes seen within the abdomen or pelvis. 2. Prior cholecystectomy and hysterectomy. *Note: Due to a large number of results and/or encounters for the requested time period, some results have not been displayed. A complete set of results can be found in Results Review. Discharge Medications Current Discharge Medication List START taking these medications Details ertapenem (INVANZ) 1 GM vial Inject 1 g into the vein every 24 hours for 37 days Weekly CBC/diff,creat,SGOT,ESR,CRP to Antoinette [phone] fax Qty: 370 mL, Refills: 0 Associated Diagnoses: Discitis, unspecified spinal region fluconazole (DIFLUCAN) 200 MG tablet Take 1 tablet (200 mg) by mouth three times a week Qty: 18 tablet, Refills: 0 Associated Diagnoses: Osteomyelitis, unspecified site, unspecified type (H) lactulose (CHRONULAC) 10 GM/15ML solution Take 15 mLs (10 g) by mouth 2 times daily as needed for constipation Qty: 473 mL, Refills: 0 Associated Diagnoses: Osteomyelitis, unspecified site, unspecified type (H) Lidocaine (LIDOCARE) 4 % Patch Place 1 patch onto the skin every 24 hours To prevent lidocaine toxicity, patient should be patch free for 12 hrs daily. Qty: 10 patch, Refills: 0 Associated Diagnoses: Osteomyelitis, unspecified site, unspecified type (H) melatonin 5 MG tablet Take 1 tablet (5 mg) by mouth nightly as needed for sleep Qty: 30 tablet, Refills: 0 Associated Diagnoses: Osteomyelitis, unspecified site, unspecified type (H) methocarbamol (ROBAXIN) 500 MG tablet Take 1 tablet (500 mg) by mouth 4 times daily Qty: 56 tablet, Refills: 0 Associated Diagnoses: Osteomyelitis, unspecified site, unspecified type (H) polyethylene glycol (MIRALAX) 17 GM/Dose powder Take 17 g by mouth daily Qty: 510 g, Refills: 1 Associated Diagnoses: Osteomyelitis, unspecified site, unspecified type (H) senna-docusate (SENOKOT-S/PERICOLACE) 8.6-50 MG tablet Take 1 tablet by mouth 2 times daily as needed for constipation Qty: 100 tablet, Refills: 0 Associated Diagnoses: Osteomyelitis, unspecified site, unspecified type (H) CONTINUE these medications which have CHANGED Details apixaban ANTICOAGULANT (ELIQUIS) 5 MG tablet Take 1 tablet (5 mg) by mouth 2 times daily Hold apixaban till bone biopsy is done. Qty: 180 tablet, Refills: 1 Associated Diagnoses: Multiple subsegmental pulmonary emboli without acute cor pulmonale (H) HYDROmorphone (DILAUDID) 2 MG tablet Take 1 tablet (2 mg) by mouth every 4 hours as needed for moderate pain (IF pain not managed with non-pharmacological and non-opioid interventions) Qty: 42 tablet, Refills: 0 Associated Diagnoses: Osteomyelitis, unspecified site, unspecified type (H) CONTINUE these medications which have NOT CHANGED Details acetaminophen (TYLENOL) 500 MG tablet Take 1,000 mg by mouth every 4 hours as needed for mild pain childrens multivitamin w/iron (FLINTSTONES COMPLETE) chewable tablet Take 1 chew tab by mouth daily Cholecalciferol (VITAMIN D3) 50 MCG (2000 UT) CAPS Take 1 capsule by mouth daily diphenhydrAMINE (BENADRYL) 25 MG capsule Take 1 capsule (25 mg) by mouth every 6 hours as needed (nausea) Associated Diagnoses: Intractable nausea and vomiting EPINEPHrine (ANY BX GENERIC EQUIV) 0.3 MG/0.3ML injection 2-pack Inject 0.3 mLs (0.3 mg) into the muscle once as needed for anaphylaxis Qty: 1 each, Refills: 0 folic acid (FOLVITE) 1 MG tablet Take 1 mg by mouth daily gabapentin (NEURONTIN) 800 MG tablet Take 800 mg by mouth 3 times daily LORazepam (ATIVAN) 1 MG tablet Take 1 mg by mouth every 6 hours as needed for anxiety naloxone (NARCAN) 4 MG/0.1ML nasal spray Stopover 4 mg into one nostril alternating nostrils once as needed for opioid reversal zolpidem (AMBIEN) 10 MG tablet Take 10 mg by mouth At Bedtime cyclobenzaprine (FLEXERIL) 10 MG tablet Take 1 tablet (10 mg) by mouth 3 times daily as needed for muscle spasms Qty: 20 tablet, Refills: 1 Associated Diagnoses: Acute low back pain with radicular symptoms, duration less than 6 weeks Allergies Allergies Allergen Reactions Chlorhexidine Itching and Swelling [...] 25 mg benadryl PIV prior to contrast documented in this encounter Medications at Time [...] 37 days Weekly CBC/diff,creat,SGOT, ESR,CRP to Antoinette [phone] fax 370 mL 03/14/2024 04/20/2024 fluconazole (DIFLUCAN) [...] 03/13/2024 naloxone (NARCAN) 4 MG/0.1ML nasal spray Stopover 4 mg into one nostril alternating nostrils once as needed for opioid reversal 06/28/2023 zolpidem (AMBIEN) 10 MG tablet Take 10 mg by mouth At Bedtime 12/17/2022 diphenhydrAMINE (BENADRYL) 25 MG tabletIndications:Oste omyelitis, unspecified site, unspecified type (H) Take 1 tablet (25 mg) by mouth every 6 hours as needed for itching or allergies 8 tablet 03/13/2024 03/15/2024 HYDROmorphone (DILAUDID) 2 MG tabletIndications:Oste omyelitis, unspecified site, unspecified type (H) Take 1 tablet (2 mg) by mouth every 4 hours as needed for moderate pain (IF pain not managed with non-pharmacological and non-opioid interventions) 42 tablet 03/13/2024 03/16/2024 melatonin 5 MG tabletIndications:Oste omyelitis, unspecified site, unspecified type (H) Take 1 tablet (5 mg) by mouth nightly as needed for sleep 30 tablet 03/13/2024 03/15/2024 polyethylene glycol (MIRALAX) 17 GM/Dose powderIndications:Oste omyelitis, unspecified site, unspecified type (H) Take 17 g by mouth daily 510 g 1 03/13/2024 03/15/2024 senna-docusate (SENOKOT-S/PERICOLACE) 8.6-50 MG tabletIndications:Oste omyelitis, unspecified site, unspecified type (H) Take 1 tablet by mouth 2 times daily as needed for constipation 100 tablet 03/13/2024 03/15/2024 cyclobenzaprine (FLEXERIL) 10 MG tabletIndications:Acut e low back pain with radicular symptoms, duration less than 6 weeks Take 1 tablet (10 mg) by mouth 3 times daily as needed for muscle spasms 20 tablet 1 02/23/2024 03/15/2024 documented as of this encounter Progress Notes * Yessi Duran, RN - 03/13/2024 3:06 PM CDT Care Management Discharge Note Discharge Date: 03/13/2024 Discharge Disposition: home with home infusion Discharge Services: home infusion Discharge Transportation: family or friend will provide Education Provided on the Discharge Plan: yes Persons Notified of Discharge Plans: Patient, UCARE CM Ashely Patient/Family in Agreement with the Plan: yes Handoff Referral Completed: Yes Additional Information: Patient is medically ready for discharge today to home with home infusion services. Met with patient at bedside to confirm she is in agreement with this. Pt has done home infusion previously and is familiar with process. She will need home delivery driver to assist with needle charges, dressing changes, and weekly lab draws. Patient states she does not need help with med administration and she is familiar. Spoke with Ashely [facility] Barn Manager with up update on discharge plan. Pt is on a restricted [facility] policy. Update from Ashely that they did receive signed referral from pt's PCP clinic for hospitalist to sign for discharge prescriptions. Pt is restricted to use ONLY [id number] - [place], [place] - [address] [phone], Dr Amato pageferdinand notified of this. All discharge meds to be sent here. Ashely will need to ne updated with home infusion company name/info once this is arrangedso it can be approved. Referral was sent to Home Infusion but declined due to past issues with patient. New referral sent to [facility] (per [facility] request as they have worked with this agency in the past) and spoke with liaison Amee. Amee is working on benefit check and will be back to film writer STEF. Awaiting call backfrom infusion company. Bedside RN and patient notified. ADDENDUM 03/13/24 1552: Call back from [facility], they are still working on benefit check but should have this back by end of day. Amee ([facility] liaison) states that they will likely not have delivery in the AM on 03/14 and to confirm if late dose will be acceptable. Dr Amato paged with this information and MD states this will be acceptable for late abx dose tomorrow. Confirmed with patient she is ok with this plan and ok with potential out of pocket costs with [facility] (since benefits are not confirmed yet). Pt is also ok with late dose tomorrow after deliverywith virtual nurse visit to go over administration. Ashely HAMPTON CM was also on speaker phone during this conversation as well and updated on plan. [facility] will follow up with film writer once benefitcheck is completed. Amee will also follow up with patient directly with this information as well. Amee is also working also on setting up [facility] RN to see patient weekly for labs/dressing changes/needle changes. Bedside RN updated. ADDENDUM 03/14/24 0900: Received call from Amee [facility] liaison that benefit check is back and patient has 100% coverage for home infusion services with her insurance plan. Amee is working on setting up home nurse for patient and delivery of supplies. [facility] Received call from Ashely HAMPTON CM and updated her on [facility] to be used at outpatient pharmacyand home infusion agency for home IV ABX. Received an additional call from Ashely stating that [facility] pharmacy is stating that Dr Curry's name is on script for IV ABX and this MD was not approved by PCP to sign off on discharge meds (per [facility] restrictive program rules). It looks like all discharge orders have been signed by Dr Amato on the AVS. Provided this information to Ashely. She willfollow up with pharmacy and send request to Dr Mcclelland to sign off on referral for Dr Curry to be able to sign discharge orders/prescriptions for patient. She will also follow up with patient who may need to contact [facility] to advise if dose today will be delayed due to this as this process takes time. [facility] is aware this was a patient driven discharge. Yessi Duran, DONNA Credit Support Specialist [facility] [phone] * Harley Curry MD - 03/13/2024 2:33 PM CDT Images from the original note were not included. 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, loss of > 100 lbs, hx of DVT/PE, severe anxiety, anemia, thrombocytosis, chronic pain, obesity Had one positive blood cx for strep mitis oralis on 03/02 felt to be contaminant Back pain: MRI no discitis/ osteo Imaging less suspicious for osteomyelitis So far only 1/2 positive cultures for strep mitis a contaminant New in the hospital fevers , and now positive blood cultures with gram-negative jamaal further identified as Klebsiella ESBL organism Of note all prior cultures are negative multiple done on the and and 07 March Now on Ertapenem Recommendations Neg CT abdomen pelvis Continue Ertapenem fever resolved, feels better, 1 follow-up blood culture negative even if unlikely this is a port infection appears to have cleared IR biopsy lumbar sine to assess for osteomyelitis delayed till Wednesday due to anticoagulation, I am okay with disposition. Essentially I think we are committed to treating his discitis, will use ertapenem unless biopsy directs us to a different organism. Await that biopsy result but orders in nowfor completion of the 6 weeks of IV ertapenem. Follow-up pain, labs and clinically while on this History of thrush, vaginal Anderson and prior candidemia while on antibiotics so do fluconazole 200 mg 3 times weekly as prophylaxis Discussed all in detail with the patient, orders readjusted to our follow-up Recommendations were discussed with the hospitalist service Harley Curry MD Interval History Patient was seen and examined, chart reviewed Fever and leukocytosis resolved Remains on Ertapenem. UA is negative Continues to complain of back pain imaging reviewed, not classic discitis but still a presumptive diagnosis Physical Exam Temp: 97.1 ??F (36.2 ??C) Temp src: Temporal BP: 111/56 Pulse: 100 Resp: 22 SpO2: 98 % O2 Device: None (Room air) Vitals: 03/06/24 1938 03/07/24 1121 03/13/24 0642 Weight: 107.9 kg (237 lb 14 oz) 113.4 kg (250 lb) 107.3 kg (236 lb 8.9 oz) Vital Signs with Ranges Temp: [97.1 ??F (36.2 ??C)-99.3 ??F (37.4 ??C)] 97.1 ??F (36.2 ??C) Pulse: [92-117] 100 Resp: [20-22] 22 BP: (111-127)/(56-87) 111/56 SpO2: [93 %-98 %] 98 % Constitutional: Awake, alert, cooperative, no apparent distress Lungs: non labored breathing Skin: No rashes, no cyanosis, no edema Other: Medications Current Facility-Administered Medications Medication Dose Route Frequency Provider Last Rate Last Admin heparin 25,000 units in 0.45% NaCl 250 mL ANTICOAGULANT infusion 0-5,000 Units/hr Intravenous Continuous Masood Amato MD Current Facility-Administered Medications Medication Dose Route Frequency Provider Last Rate Last Admin [Held by provider] apixaban ANTICOAGULANT (ELIQUIS) tablet 5 mg 5 mg Oral BID Carlos Vila MD 5 mg at 03/12/24 0911 childrens multivitamin with iron (FLINTSTONES COMPLETE) chewable tablet 1 tablet 1 tablet Oral Daily Carlos Vila MD 1 tablet at 03/13/24 0913 ertapenem (INVanz) 1 g vial to attach to NS 100 mL bag 1 g Intravenous Q24H Waleska Stevenson MD 1 g at 03/13/24 1100 famotidine (PEPCID) injection 40 mg 40 mg Intravenous Q12H Carlos Vila MD 40 mg at 03/13/24 0536 folic acid (FOLVITE) tablet 1 mg 1 mg Oral Daily Ady Thurston MD 1 mg at 03/13/24 0914 gabapentin (NEURONTIN) capsule 800 mg 800 mg Oral TID Ady Thurston MD 800 mg at 03/13/24 0914 heparin 100 unit/mL injection 5-10 mL 5-10 mL Intracatheter Q28 Days Carlos Vila MD heparin lock flush 10 UNIT/ML injection 5-10 mL 5-10 mL Intracatheter Q24H Carlos Vila MD 5 mL at 03/13/24 1200 Lidocaine (LIDOCARE) 4 % Patch 1 patch 1 patch Transdermal Q24H Ady Thurston MD 1 patch at 03/13/24 0914 methocarbamol (ROBAXIN) tablet 500 mg 500 mg Oral 4x Daily Carlos Vila MD 500 mg at 03/13/24 0914 pantoprazole (PROTONIX) IV push injection 40 mg 40 mg Intravenous Daily Carlos Vila MD 40 mg at 03/13/24 0913 scopolamine (TRANSDERM) 72 hr patch 1 patch 1 patch Transdermal Q72H Carlos Vila MD 1 patch at 03/11/24 1239 And scopolamine (TRANSDERM-SCOP) Patch in Place Transdermal Q8H Carlos Vila MD sodium chloride (PF) 0.9% PF flush 10-20 mL 10-20 mL Intracatheter Q28 Days Carlos Vila MD10 mL at 03/08/24 0956 Data All microbiology laboratory data reviewed. Recent Labs Lab Test 03/13/24 1313 03/12/24 0533 03/09/24 0618 WBC 7.1 7.8 24.7* HGB 10.6* 9.3* 9.0* HCT 32.8* 28.8* 27.8* MCV 90 92 91 PLT 311 238 223 Recent Labs Lab Test 03/12/24 0533 03/09/24 0618 03/06/24 1649 CR 0.71 0.54 0.73 Recent Labs Lab Test 03/07/24 1049 SED 44* 03/09/2024 0459 03/11/2024 0917 Blood Culture Hand, Left [[id number]] (Abnormal) Blood from Hand, Left Preliminary result Component Value Culture Positive on the 1st day of incubation Abnormal P Gram negative bacilli Panic P 1 of 1 bottles 03/08/2024 1419 03/11/2024 0722 Blood Culture Hand, Left [[id number]] (Abnormal) Blood from Hand, Left Preliminary result Component Value Culture Positive on the 1st day of incubation Abnormal P Klebsiella pneumoniae ESBL Panic P 2 of 2 bottles Susceptibility Klebsiella pneumoniae ESBL [place] (Preliminary) Amikacin <=2 ug/mL Susceptible * Ampicillin Resistant 1 Ampicillin/ Sulbactam 16 ug/mL Intermediate * Cefepime Resistant Cefotaxime Resistant * Cefoxitin <=4 ug/mL Susceptible * Ceftazidime Resistant Ceftriaxone Resistant Ciprofloxacin 0.5 ug/mL Intermediate Extended Spectrum Beta-Lactamase Positive ug/mL ESBL Positive * Gentamicin >=16 ug/mL Resistant Levofloxacin 1 ug/mL Intermediate Meropenem <=0.25 ug/mL Susceptible 2 Nitrofurantoin 64 ug/mL Intermediate * Piperacillin/Tazobactam <=4 ug/mL Susceptible Tobramycin 2 ug/mL Susceptible Trimethoprim/Sulfamethoxazole <=1/19 ug/mL Susceptible * Ena Church CRNI - 03/13/2024 2:21 PM CDT [facility] Received request for benefit check should pt require home IV abx. Unfortunately, [facility] is declining this referral because she is not appropriate for home infusion. Radha Junior on services with [facility] from 08/04/23 thru 11/15/23 with multiple home sanitation and IV access issues. Excerpt from my note on December 08, 2023: The pt's home is very messy and at times our nurses noted animal feces and trash on the floor, flies in the home, and a strong odor. Pt initially reported that the poor cleanliness of her home was situational due to health issues but it got progressively worse until it became a safety issue for thept and our nurses. Pt also had multiple port-a-cath related issues including the IV end cap coming off while pt was sleeping and she woke up in a pool of blood because she had not properly clamped the line, 4 instancesof her port dressings coming completely off, 3 instances of her port needle coming out, and 3 instances of her port tubing becoming inexplicably damaged resulting in leaking of medication and blood. Pt's day care assistant, Yessi was updated via email. Thank you Ena Church RN [facility] Liaison [phone] (Mon thru Fri 8am - 5pm) [phone] Office * Nallely Barriga RN - 03/13/2024 8:42 AM CDT Paged Neuro IR with consult request for lumbar bone biopsy. * Masood Amato MD - 03/12/2024 3:39 PM CDT [facility] Medicine Progress Note - Hospitalist Service Date of Admission: 03/05/2024 Primary Care Physician Segundo Mcclelland CONSULTANTS: ID, neurosurgery Assessment & Plan History of Present Illness: Sandi Lopez is a 38 year old female with a complicated past medical history including POTS requiring central access currently with a port in place as of 02/04/24, multiple episodes of bacteremia and line infections of unclear infectious nidus, chronic back pain with previous lumbar discectomyfor herniation, chronic pain syndrome, anxiety, MDD, borderline personality disorder, gastroparesis, nephrolithiasis, iron deficiency anemia, GERD, obesity, and suspected opiate/benzodiazepine dependence who presents with severe back pain. She reports chronic low back pain from previous surgery fordisc herniation. She was seen in the ER on 02/25 and 03/02 for acute on chronic low back pain along with numbness down the left side and reported leg weakness. She had a lumbar MRI that showed L4-L5 opposing endplate edema with associated has been that could be osteomyelitis although felt to be less likely overall based on the imaging. Neurosurgery was contacted recommended following inflammatory markers. Her CRP was high at that time as was ESR she had blood cultures drawn. Peripheral blood culture now positive for strep mitis 1 of 2 culture from 03/02/24 thought to be contaminant per ID. She wastold to come back to the emergency room for further treatment and workup. The pain is now severe inthe low back. She cannot find any comfortable position. She has been taking acetaminophen 4500 mg in a day and oral Dilaudid at home without any improvement. Reports similar paresthesias and weaknessto previous. She has had ongoing issues with nausea and vomiting from her gastroparesis. She felt absolutely terrible throughout the day today and had shaking chills for about 90 minutes this morning. She did not check her temperature, but she was sweaty as well after this. She denies any new dysuria or hematuria. No new cough or shortness of breath. History obtained from patient, medical record, and from CLAIR Cronin in the emergency department. Blood pressure 160/79 then 109/70, tachycardic 113 then 99, temperature 98.9 ??F, oxygen 90% on room air. Potassium low at 3.2 otherwise BMP unremarkable. CRP elevated at 142 as is ESR 37. Lactic acid normal at 1.3. WBC 12.9, drop in hemoglobin to 9.5, platelet count 239. Stool occult blood is negative. Previous lumbar spine shows possible L4-5 osteomyelitis although this could be from degenerative change. She received 2 g IV Ancef, oral Dilaudid 2 mg, 1 L NS, 40 g oral potassium but she could not tolerate this due to vomiting, and a dose of Eliquis. Admit inpatient with ID and neurosurgery consultation. Severe acute on chronic low back pain, possible L4-L5 osteomyelitis, complicated by her Chronic pain syndrome, Strep mitis bacteremia 1 of 2 blood culture 03/02/24 (likely contaminant), possible infected port vs Possible odontogenic source, Hx bacteremia, ESBl, fungemia, severe back pain: Patient with a history of chronic back pain with previous discectomy, no hardware in place. Severely worsening back pain in the past few days despite oral Dilaudid prior to admission. Reporting rigors 03/05/24 and she did have a positive blood culture from the ER on 03/02 for strep mitis 1 of 2. Neurosurgery recommended lumbar MRI which was done on 03/02 that showing opposing endplate edema L4-L5, but no enhancement of the intervertebral disc or abnormal single in the paraspinous tissues so infectionseems less likely based on imaging alone and could represent degenerative Modic type I change per radiology. Per neurosurgery does not think this is osteo. However, given that she had rigors, bacteremia, port in place, self-reported severely worsening pain, and CRP now rising to 142 from 112 few days prior to admission and ESR 37 from 18 infection involving the spine is possible. Also has a new leukocytosis of 12.9. She does have chronic pain and has had numerous short-term prescriptions over the past many months for oral Dilaudid along with exhibiting symptoms and behavior of pain out of proportion to what would be suspected from previous spine imaging while here in the hospital. However, if she has acute osteomyelitis then this certainly would result in severe pain in any individual. Anaphylaxis allergy listed NSAID. She reports taking 4500 mg of acetaminophen a day. Seen in the ER 02/10, 02/16x2, 02/25, 03/02 for chest pain and then back pain. Was recently on a medrol dose pack per her primary with some improvement. -Previous bacteremia infections: -April 2023 blood cultures growing Strep anginosus, Staph aureus, Staph hominis, strep mitis -10/23/2023 ESBL Klebsiella pneumoniae cultures positive x 2. Line associated -10/28/2023 Enterobacter [place] complex and Enterococcus faecalis positive cultures -11/09/2023 Anderson like the Lyrica and Anderson dubliniensis blood cultures. Port removed then -01/08/2024 positive culture for Actinomyces odontolyticus, not treated and felt to be contaminant. No line in place then. -03/02/2024 peripheral blood culture positive for strep mitis 1 of 2, per ID likely contaminant -03/05/24 blood culture negative to date 2 of 2 -03/07/24 blood culture negative to date 1 of 1 -03/08/24 blood culture positive ESBL Klebsilla (back within 12 hours) -03/09/24 blood culture growing Klebsiella 03/10/24 had allergic reaction with rash on the chest, suspected due to Invanz which was held. 03/11/24. Seen by ID again. Invanz resumed. Plan for lumbar spinal biopsy to rule out osteomyelitis. 02/10/24: Had a fall overnight. No bruising. No new significant injuries. Will hold apixaban for planned IR lumbar spinal biopsy tomorrow. Based on the types of bacteria in the setting of central line placement this does bring up the possibility of insufficient treatment of previous infections, bad teeth, or possible self inoculation. Alternatively, there are multiple oral loan organisms previously growing in her blood and she reports having a cracked right upper molar that intermittently drains some fluid which could be a source for ongoing intermittent bacteremia. She does have a cracked tooth on exam that is not currently actively draining. She has not had the tooth pulled or fixed due to not having dental insurance. On admission was placed on IV Ancef 2 g every 8 hours covering the strep mitis bacteremia, ID saw, and given recurrent cultures negative this is thought to be contaminant so her antibiotics were stopped. Also neurosurgery has seen and is not planning any surgical intervention and have signed off not thinking this represents true osteo. If gets worse they should be called. Given her history, goal from my point of view would be not to do surgery and most certainly should not have any hardware placed. Will need to follow blood cultures, fever curve. Continue on Acetaminophen, Oral Dilaudid, Flexeril/robaxin. Physical therapy to see. She was also placed on a medrol dose pack. If persistent bacteremia then would need to consider port removal, defer to ID. Will need outpatient follow up with oral surgery or dentistry as the source could be her teeth. We do not have oral surgery to comes to [place]. Hopefully blood cultures on follow-up remain negative or also need to consider removing her Port-A-Cath. Sed rate is up to 44 from 37. CRP down to 71 from 143. Venover Drug reaction vs sepsis (Klebsiella) unclear source possible UTI On 03/08, when the patient was given venofer per her port she developed severe nausea, vomiting, andrigors. Her temp went up to over 104. She was treated with solumedrol, ativan (has allergies to zofran/phenergen/reglan/compazine), stopped the iron, given IV fluids, and benadryl and pepcid. She wasgiven tylenol pr and over time she improved. She did develop agitation and confusion related to her medications and required a code 21 called but this improved over time. Her lactic acid on first check was elevated at 3.3. She was given IV fluids and came down to 0.8. Her white blood cell count waschecked as well and is elevated at 24.7 but again this is in the setting of getting steroids. I also checked blood cultures and unfortunately these came back quickly with a gram-negative bacillus showing Klebsiella by verigene and was CTX-m. Patient was placed on meropenum overnight and changed to ertapenem. Previous urine analysis on 03/06 was negative but per report she started having urinary hesitancy a few days ago. At the point per ID, no need to remove her port. Acute nausea, vomiting Patient is limited in what can be used due to her intolerances. Patient was given Ativan during herepisode as above. I also added scopolamine which she still has in place. She also is on a PPI for gastritis. History PEs, chronic anticoagulation: History PEs, most recently November 2023. Chronically on Eliquis 5 mg twice daily which is being held initially in case of need for bone biopsy or procedure in addition to her acutely worsening anemia. Last dose evening 03/05 in the ER. PCD's. Resumed her lifelong DOAC. History of induced pulmonary embolus after delivery. 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 Will hold Eliquis tonight to see if IR can do biopsy tomorrow morning if they cannot do biopsy tomorrow, will have to put on heparin drip. Acute on chronic anemia: Hemoglobin dropping to 7.6 from a baseline of 11-12. She has chronic iron deficiency anemia. She jackie Eliquis, but denies any blood loss. Stool occult blood is negative. Suspect in part related to the acute inflammatory response evidenced by high CRP in the setting of bacteremia possible osteomyelitis. CBC and type and screen in the morning . Resuming Eliquis initially as above. Did get transfused 4.9 and hemoglobin up to 9.4. sees Dr Allyssa Justice. Her last note from 03/01/24 has been reviewed. Patient with chronic anemia since age 13 initially was due to menstral bleedin but has had a hysterectomy. Now gatroparesis and malabsorption is an issue. Patient with a history of getting venofer. Tried to give her Venofer but she had a reaction as above. Not sure if it was a true drug reaction versus sepsis.. Repeat hemoglobin is up to 9 as of 03/09/2024. Hypokalemia: Potassium low at 3.2. Has chronic issues with vomiting. Was not tolerating oral potassium in the ER. Placed on replacement. Potassium up to 4 as of 03/09/2024. Gastroparesis, Nausea, vomiting: Reports history of gastroparesis secondary previous Ozempic use. She has chronic nausea and vomiting. She has allergies listed to Compazine, Zofran, metoclopramide, and Phenergan. This many allergiesto different antinausea medications is extremely unlikely in any 1 person. She has issues with anxiety that she self-reports is severely worse in the hospital and per chart review also has issues with concerns for benzodiazepine abuse in the past. Based on thorough chart review by my partner, we dosuspect the allergies listed are in part a way to receive IV lorazepam for refractory nausea in addition to IV pain medications in the hospital. Malabsorption has been an issue. She has received Ativan while here and I also started her on scopolamine. POTS: Chronic issues with syncope and near syncopal episodes with previous diagnosis of POTS. She says she is post to get IV fluids twice per week and this is why she has had PICC line and ports in the past. Port removed in October 2023 for bacteremia/fungemia. Port replaced 02/04/2024. Seen in the ER 01/18, 01/19, 01/27, 01/28 for syncope. IV fluid boluses as needed while here for symptoms Anxiety MDD Borderline personality disorder Insomnia Drug seeking behavior: These are the diagnoses listed in her previous medical history, unclear if previously diagnosed by a psychiatrist. She has had multiple prescriptions in the past for 1 mg oral lorazepam as needed foranxiety. She informs me that her anxiety has been through the roof when she is hospitalized and will need medication for this. She also takes Ambien 10 mg at night as needed. Resume Ambien, Oral lorazepam as needed for anxiety. Need to watch for drug seeking behavior for benzos/opiates. Also I did let the patient know we are worried about self injurious behavior given her multiple blood cultures with multiple different organisms. Patient denies self injecting or trying to harm herself at this point. Patient has a pain contract with her primary care provider Dr. Mcclelland Obesity: BMI 40.35 as of 03/07/2024, complicates cares History nephrolithiasis Could contribute to back pain however her MRI did show some findings in the lumbar spine area. Could consider always go looking for kidney stone as a cause of her pain if her pain should change. DVT Prophylaxis: Pneumatic Compression Devices Code Status: Full Code FEN: Regular diet Lines: Right chest port Discharge Dispo: TBD. May need weeks of IV antibiotics. Estimated Disch Date / # of Days until Disch: Admit inpatient for bacteremia and potential lumbar osteomyelitis. Anticipated discharge on Wednesday. Clinically Significant Risk Factors Present on Admission # Hypokalemia: Lowest K = 3.2 mmol/L in last 2 days, will replace as needed # Drug Induced Coagulation Defect: home medication list includes an anticoagulant medication # Obesity: Estimated body mass index is 31.47 kg/m?? as calculated from the following: Height as of this encounter: 1.676 m (5' 6). Weight as of this encounter: 88.5 kg (195 lb). # Financial/Environmental Concerns: has not sought the care of a dentist due to cost and lack of insurance coverage Discussed plan of care with nursing, social work, case management, and vascular's disease notes reviewed once again RESTRAINTS: not indicated Code Status: Full Code Follow up plan: Needs to see oral surgery vs dentist as outpatient for dental extraction This document was created using voice recognition technology. Please excuse any typographical errors that may have occurred. Please call with any questions. Disposition Plan patient is getting need to plan for ongoing IV antibiotics. Not sure if this can be done at home. Pain will also be a contributing factor to keeping her in the hospital. Barrier to discharge: Improved pain, plan for ongoing antibiotics. . Masood Amato MD Hospitalist Service [facility] Securely message with [employer] (more info) Text page via [facility] Paging/Directory Interval History No new complaints, allergic rash on the chest is resolved. Had a unwitnessed fall last night. ROS: A comprehensive review of systems was negative except for items noted in the HPI. Patient currently denies any fever, chills, sweats, nausea, vomiting, diarrhea, shortness of breath, or chest pain. Physical Exam Vital Signs: Temp: 97.2 ??F (36.2 ??C) Temp src: Temporal BP: 118/52 Pulse: 90 Resp: 20 SpO2: 94 % O2 Device: None (Room air) Weight: 250 lbs .03 oz General appearance: Patient is alert and oriented x3. HEENT: Mucous membranes are moist RESPIRATORY: Clear to auscultation bilateral, good air movement CARDIOVASCULAR: Regular rate and rhythm, no murmurs Chest: Right Port-A-Cath in place without any evidence of tenderness, erythema, or drainage GASTROINTESTINAL: obese, Non-distended, non-tender, soft, bowel sounds present throughout, NEUROLOGIC: Cranial nerves II-XII intact, without any focal deficits EXTREMITIES: Moves all extremities, no clubbing, cyanosis, nor edema : Garcia not present Data I have personally reviewed the following data over the past 24 hrs: 7.8 \ 9.3 (L) / 238 138 102 15.1 / 113 (H) 4.0 26 0.71 \ Imaging: Results for orders placed or performed during the hospital encounter of 03/02/24 MR Lumbar Spine w/o & w Contrast Narrative EXAM: MR LUMBAR SPINE W/O and W CONTRAST LOCATION: [facility] DATE: 03/02/2024 INDICATION: low back pain and patient reporting saddle anesthesia COMPARISON: Plain radiographs 12/19/2023. CONTRAST: 9ML LEONARDA TECHNIQUE: Routine Lumbar Spine MRI without and with IV contrast. FINDINGS: Nomenclature is based on 5 lumbar type vertebral bodies. Normal vertebral body heights and alignment. Mixed Modic type I and type II changes with associated contrast enhancement at the opposing L4-[id number]. No abnormal contrast enhancement in the intervertebral disc. Normal distal spinal cord and cauda equina with conus medullaris at T12-L1. Noextraspinal abnormality. Unremarkable visualized bony pelvis. T12-L1: Normal [...] No spinal canal or neural foraminal stenosis. Impression IMPRESSION: 1. Multilevel lumbar spondylosis without high-grade [...] suspicion for discitis osteomyelitis, recommend follow-up imaging. *Note: Due to a large number of results and/or encounters for the requested time period, some results have not been displayed. A complete set of results can be found in Results Review. Procedures: none I have personally have reviewed the patient's most up to date labs, orders, and medications myself I discussed with Dr. Stevenson from infectious disease. * Masood Amato MD - 03/11/2024 2:07 PM CDT [facility] Medicine Progress Note - Hospitalist Service Date of Admission: 03/05/2024 Primary Care Physician Segundo Mcclelland CONSULTANTS: ID, neurosurgery Assessment & Plan History of Present Illness: Sandi Lopez is a 38 year old female with a complicated past medical history including POTS requiring central access currently with a port in place as of 02/04/24, multiple episodes of bacteremia and line infections of unclear infectious nidus, chronic back pain with previous lumbar discectomyfor herniation, chronic pain syndrome, anxiety, MDD, borderline personality disorder, gastroparesis, nephrolithiasis, iron deficiency anemia, GERD, obesity, and suspected opiate/benzodiazepine dependence who presents with severe back pain. She reports chronic low back pain from previous surgery fordisc herniation. She was seen in the ER on 02/25 and 03/02 for acute on chronic low back pain along with numbness down the left side and reported leg weakness. She had a lumbar MRI that showed L4-L5 opposing endplate edema with associated has been that could be osteomyelitis although felt to be less likely overall based on the imaging. Neurosurgery was contacted recommended following inflammatory markers. Her CRP was high at that time as was ESR she had blood cultures drawn. Peripheral blood culture now positive for strep mitis 1 of 2 culture from 03/02/24 thought to be contaminant per ID. She wastold to come back to the emergency room for further treatment and workup. The pain is now severe inthe low back. She cannot find any comfortable position. She has been taking acetaminophen 4500 mg in a day and oral Dilaudid at home without any improvement. Reports similar paresthesias and weaknessto previous. She has had ongoing issues with nausea and vomiting from her gastroparesis. She felt absolutely terrible throughout the day today and had shaking chills for about 90 minutes this morning. She did not check her temperature, but she was sweaty as well after this. She denies any new dysuria or hematuria. No new cough or shortness of breath. History obtained from patient, medical record, and from CLAIR Cronin in the emergency department. Blood pressure 160/79 then 109/70, tachycardic 113 then 99, temperature 98.9 ??F, oxygen 90% on room air. Potassium low at 3.2 otherwise BMP unremarkable. CRP elevated at 142 as is ESR 37. Lactic acid normal at 1.3. WBC 12.9, drop in hemoglobin to 9.5, platelet count 239. Stool occult blood is negative. Previous lumbar spine shows possible L4-5 osteomyelitis although this could be from degenerative change. She received 2 g IV Ancef, oral Dilaudid 2 mg, 1 L NS, 40 g oral potassium but she could not tolerate this due to vomiting, and a dose of Eliquis. Admit inpatient with ID and neurosurgery consultation. Severe acute on chronic low back pain, possible L4-L5 osteomyelitis, complicated by her Chronic pain syndrome, Strep mitis bacteremia 1 of 2 blood culture 03/02/24 (likely contaminant), possible infected port vs Possible odontogenic source, Hx bacteremia, ESBl, fungemia, severe back pain: Patient with a history of chronic back pain with previous discectomy, no hardware in place. Severely worsening back pain in the past few days despite oral Dilaudid prior to admission. Reporting rigors 03/05/24 and she did have a positive blood culture from the ER on 03/02 for strep mitis 1 of 2. Neurosurgery recommended lumbar MRI which was done on 03/02 that showing opposing endplate edema L4-L5, but no enhancement of the intervertebral disc or abnormal single in the paraspinous tissues so infectionseems less likely based on imaging alone and could represent degenerative Modic type I change per radiology. Per neurosurgery does not think this is osteo. However, given that she had rigors, bacteremia, port in place, self-reported severely worsening pain, and CRP now rising to 142 from 112 few days prior to admission and ESR 37 from 18 infection involving the spine is possible. Also has a new leukocytosis of 12.9. She does have chronic pain and has had numerous short-term prescriptions over the past many months for oral Dilaudid along with exhibiting symptoms and behavior of pain out of proportion to what would be suspected from previous spine imaging while here in the hospital. However, if she has acute osteomyelitis then this certainly would result in severe pain in any individual. Anaphylaxis allergy listed NSAID. She reports taking 4500 mg of acetaminophen a day. Seen in the ER 02/10, 02/16x2, 02/25, 03/02 for chest pain and then back pain. Was recently on a medrol dose pack per her primary with some improvement. -Previous bacteremia infections: -April 2023 blood cultures growing Strep anginosus, Staph aureus, Staph hominis, strep mitis -10/23/2023 ESBL Klebsiella pneumoniae cultures positive x 2. Line associated -10/28/2023 Enterobacter [place] complex and Enterococcus faecalis positive cultures -11/09/2023 Anderson like the Lyrica and Anderson dubliniensis blood cultures. Port removed then -01/08/2024 positive culture for Actinomyces odontolyticus, not treated and felt to be contaminant. No line in place then. -03/02/2024 peripheral blood culture positive for strep mitis 1 of 2, per ID likely contaminant -03/05/24 blood culture negative to date 2 of 2 -03/07/24 blood culture negative to date 1 of 1 -03/08/24 blood culture positive ESBL Klebsilla (back within 12 hours) -03/09/24 blood culture growing Klebsiella 03/10/24 had allergic reaction with rash on the chest, suspected due to Invanz which was held. 03/11/24. Seen by ID again. Invanz resumed. Plan for lumbar spinal biopsy to rule out osteomyelitis. Based on the types of bacteria in the setting of central line placement this does bring up the possibility of insufficient treatment of previous infections, bad teeth, or possible self inoculation. Alternatively, there are multiple oral loan organisms previously growing in her blood and she reports having a cracked right upper molar that intermittently drains some fluid which could be a source for ongoing intermittent bacteremia. She does have a cracked tooth on exam that is not currently actively draining. She has not had the tooth pulled or fixed due to not having dental insurance. On admission was placed on IV Ancef 2 g every 8 hours covering the strep mitis bacteremia, ID saw, and given recurrent cultures negative this is thought to be contaminant so her antibiotics were stopped. Also neurosurgery has seen and is not planning any surgical intervention and have signed off not thinking this represents true osteo. If gets worse they should be called. Given her history, goal from my point of view would be not to do surgery and most certainly should not have any hardware placed. Will need to follow blood cultures, fever curve. Continue on Acetaminophen, Oral Dilaudid, Flexeril/robaxin. Physical therapy to see. She was also placed on a medrol dose pack. If persistent bacteremia then would need to consider port removal, defer to ID. Will need outpatient follow up with oral surgery or dentistry as the source could be her teeth. We do not have oral surgery to comes to [facility]. Hopefully blood cultures on follow-up remain negative or also need to consider removing her Port-A-Cath. Sed rate is up to 44 from 37. CRP down to 71 from 143. Venover Drug reaction vs sepsis (Klebsiella) unclear source possible UTI On 03/08, when the patient was given venofer per her port she developed severe nausea, vomiting, andrigors. Her temp went up to over 104. She was treated with solumedrol, ativan (has allergies to zofran/phenergen/reglan/compazine), stopped the iron, given IV fluids, and benadryl and pepcid. She wasgiven tylenol pr and over time she improved. She did develop agitation and confusion related to her medications and required a code 21 called but this improved over time. Her lactic acid on first check was elevated at 3.3. She was given IV fluids and came down to 0.8. Her white blood cell count waschecked as well and is elevated at 24.7 but again this is in the setting of getting steroids. I also checked blood cultures and unfortunately these came back quickly with a gram-negative bacillus showing Klebsiella by verigene and was CTX-m. Patient was placed on meropenum overnight and changed to ertapenem. Previous urine analysis on 03/06 was negative but per report she started having urinary hesitancy a few days ago. At the point per ID, no need to remove her port. Acute nausea, vomiting Patient is limited in what can be used due to her intolerances. Patient was given Ativan during herepisode as above. I also added scopolamine which she still has in place. She also is on a PPI for gastritis. History PEs, chronic anticoagulation: History PEs, most recently November 2023. Chronically on Eliquis 5 mg twice daily which is being held initially in case of need for bone biopsy or procedure in addition to her acutely worsening anemia. Last dose evening 03/05 in the ER. PCD's. Resumed her lifelong DOAC. History of induced pulmonary embolus after delivery. 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 Acute on chronic anemia: Hemoglobin dropping to 7.6 from a baseline of 11-12. She has chronic iron deficiency anemia. She jackie Eliquis, but denies any blood loss. Stool occult blood is negative. Suspect in part related to the acute inflammatory response evidenced by high CRP in the setting of bacteremia possible osteomyelitis. CBC and type and screen in the morning . Resuming Eliquis initially as above. Did get transfused 4.9 and hemoglobin up to 9.4. sees Dr Allyssa Justice. Her last note from 03/01/24 has been reviewed. Patient with chronic anemia since age 13 initially was due to menstral bleedin but has had a hysterectomy. Now gatroparesis and malabsorption is an issue. Patient with a history of getting venofer. Tried to give her Venofer but she had a reaction as above. Not sure if it was a true drug reaction versus sepsis.. Repeat hemoglobin is up to 9 as of 03/09/2024. Hypokalemia: Potassium low at 3.2. Has chronic issues with vomiting. Was not tolerating oral potassium in the ER. Placed on replacement. Potassium up to 4 as of 03/09/2024. Gastroparesis, Nausea, vomiting: Reports history of gastroparesis secondary previous Ozempic use. She has chronic nausea and vomiting. She has allergies listed to Compazine, Zofran, metoclopramide, and Phenergan. This many allergiesto different antinausea medications is extremely unlikely in any 1 person. She has issues with anxiety that she self-reports is severely worse in the hospital and per chart review also has issues with concerns for benzodiazepine abuse in the past. Based on thorough chart review by my partner, we dosuspect the allergies listed are in part a way to receive IV lorazepam for refractory nausea in addition to IV pain medications in the hospital. Malabsorption has been an issue. She has received Ativan while here and I also started her on scopolamine. POTS: Chronic issues with syncope and near syncopal episodes with previous diagnosis of POTS. She says she is post to get IV fluids twice per week and this is why she has had PICC line and ports in the past. Port removed in October 2023 for bacteremia/fungemia. Port replaced 02/04/2024. Seen in the ER 01/18, 01/19, 01/27, 01/28 for syncope. IV fluid boluses as needed while here for symptoms Anxiety MDD Borderline personality disorder Insomnia Drug seeking behavior: These are the diagnoses listed in her previous medical history, unclear if previously diagnosed by a psychiatrist. She has had multiple prescriptions in the past for 1 mg oral lorazepam as needed foranxiety. She informs me that her anxiety has been through the roof when she is hospitalized and will need medication for this. She also takes Ambien 10 mg at night as needed. Resume Ambien, Oral lorazepam as needed for anxiety. Need to watch for drug seeking behavior for benzos/opiates. Also I did let the patient know we are worried about self injurious behavior given her multiple blood cultures with multiple different organisms. Patient denies self injecting or trying to harm herself at this point. Patient has a pain contract with her primary care provider Dr. Mcclelland Obesity: BMI 40.35 as of 03/07/2024, complicates cares History nephrolithiasis Could contribute to back pain however her MRI did show some findings in the lumbar spine area. Could consider always go looking for kidney stone as a cause of her pain if her pain should change. DVT Prophylaxis: Pneumatic Compression Devices Code Status: Full Code FEN: Regular diet Lines: Right chest port Discharge Dispo: TBD. May need weeks of IV antibiotics. Estimated Disch Date / # of Days until Disch: Admit inpatient for bacteremia and potential lumbar osteomyelitis. Anticipated discharge on Wednesday. Clinically Significant Risk Factors Present on Admission # Hypokalemia: Lowest K = 3.2 mmol/L in last 2 days, will replace as needed # Drug Induced Coagulation Defect: home medication list includes an anticoagulant medication # Obesity: Estimated body mass index is 31.47 kg/m?? as calculated from the following: Height as of this encounter: 1.676 m (5' 6). Weight as of this encounter: 88.5 kg (195 lb). # Financial/Environmental Concerns: has not sought the care of a dentist due to cost and lack of insurance coverage Discussed plan of care with nursing, social work, case management, and vascular's disease notes reviewed once again RESTRAINTS: not indicated Code Status: Full Code Follow up plan: Needs to see oral surgery vs dentist as outpatient for dental extraction This document was created using voice recognition technology. Please excuse any typographical errors that may have occurred. Please call with any questions. Disposition Plan Expected Discharge Date: 03/11/2024 Destination: home;home with family;home with help/services Discharge Comments: Home patient is getting need to plan for ongoing IV antibiotics. Not sure if this can be done at home. Pain will also be a contributing factor to keeping her in the hospital. Barrier to discharge: Improved pain, plan for ongoing antibiotics. . Masood Amato MD Hospitalist Service [facility] Securely message with [employer] (more info) Text page via [facility] Paging/Directory Interval History No new complaints, allergic rash on the chest is resolved.. ROS: A comprehensive review of systems was negative except for items noted in the HPI. Patient currently denies any fever, chills, sweats, nausea, vomiting, diarrhea, shortness of breath, or chest pain. Physical Exam Vital Signs: Temp: 98.6 ??F (37 ??C) Temp src: Temporal BP: 110/61 Pulse: 99 Resp: 18 SpO2: 98 % [id number]: None (Room air) Weight: 250 lbs .03 oz General appearance: Patient is alert and oriented x3. HEENT: Mucous membranes are moist RESPIRATORY: Clear to auscultation bilateral, good air movement CARDIOVASCULAR: Regular rate and rhythm, no murmurs Chest: Right Port-A-Cath in place without any evidence of tenderness, erythema, or drainage GASTROINTESTINAL: obese, Non-distended, non-tender, soft, bowel sounds present throughout, NEUROLOGIC: Cranial nerves II-XII intact, without any focal deficits EXTREMITIES: Moves all extremities, no clubbing, cyanosis, nor edema : Garcia not present Data Imaging: Results for orders placed or performed during the hospital encounter of 03/02/24 MR Lumbar Spine w/o & w Contrast Narrative EXAM: MR LUMBAR SPINE W/O and W CONTRAST LOCATION: [facility] DATE: 03/02/2024 INDICATION: low back pain and patient reporting saddle anesthesia COMPARISON: Plain radiographs 12/19/2023. CONTRAST: 9ML LEONARDA TECHNIQUE: Routine Lumbar Spine MRI without and with IV contrast. FINDINGS: Nomenclature is based on 5 lumbar type vertebral bodies. Normal vertebral body heights and alignment. Mixed Modic type I and type II changes with associated contrast enhancement at the opposing [id number]. No abnormal contrast enhancement in the intervertebral disc. Normal distal spinal cord and cauda equina with conus medullaris at T12-L1. Noextraspinal abnormality. Unremarkable visualized bony pelvis. T12-L1: Normal [...] No spinal canal or neural foraminal stenosis. Impression IMPRESSION: 1. Multilevel lumbar spondylosis without high-grade [...] suspicion for discitis osteomyelitis, recommend follow-up imaging. *Note: Due to a large number of results and/or encounters for the requested time period, some results have not been displayed. A complete set of results can be found in Results Review. Procedures: none I have personally have reviewed the patient's most up to date labs, orders, and medications myself I discussed with Dr. Stevenson from infectious disease. * Waleska Stevenson MD - 03/11/2024 10:27 AM CDT Images from the original note were not included. [facility] Infectious Disease Progress Note Date of Service: 03/11/2024 Assessment 38 yo chronically ill female with gastroparesis, chronic indwelling port complicated by port infection /polymicrobial bacteremia in Oct (anderson dubliniensis & anderson lipolytica, enterobacter cloacae, ESBL Klebsiella ) treated and s/p port removal -POTS -chronic medical conditions - Ozempic induced gastroparesis with need for IV fluids frequently, loss of > 100 lbs, hx of DVT/PE, severe anxiety, anemia, thrombocytosis, chronic pain, obesity Had one positive blood cx for strep mitis oralis on 03/02 felt to be contaminant Back pain: MRI no discitis/ osteo Imaging less suspicious for osteomyelitis So far only 1/2 positive cultures for strep mitis a contaminant New in the hospital fevers , and now positive blood cultures with gram-negative jamaal further identified as Klebsiella ESBL organism Of note all prior cultures are negative multiple done on the and and 07 March Now on Ertapenem Recommendations Check CT abdomen pelvis Continue Ertapenem IR biopsy lumbar sine to assess for osteomyelitis Recommendations were discussed with the hospitalist service Waleska Stevenson MD Interval History Patient was seen and examined, chart reviewed Fever and leukocytosis improved Remains on Ertapenem. UA is negative Continues to complain of back pain Physical Exam Temp: 98.6 ??F (37 ??C) Temp src: Temporal BP: 110/61 Pulse: 99 Resp: 18 SpO2: 98 % O2 Device: None(Room air) Vitals: 03/05/243 03/06/24 1938 03/07/24 1121 Weight: 88.5 kg (195 lb) 107.9 kg (237 lb 14 oz) 113.4 kg (250 lb) Vital Signs with Ranges Temp: [97.6 ??F (36.4 ??C)-98.6 ??F (37 ??C)] 98.6 ??F (37 ??C) Pulse: [99-114] 99 Resp: [18-20] 18 BP: (110-138)/(61-88) 110/61 SpO2: [98 %-100 %] 98 % Constitutional: Awake, alert, cooperative, no apparent distress Lungs: non labored breathing Skin: No rashes, no cyanosis, no edema Other: Medications Current Facility-Administered Medications Medication Dose Route Frequency Provider Last Rate Last Admin Current Facility-Administered Medications Medication Dose Route Frequency Provider Last Rate Last Admin apixaban ANTICOAGULANT (ELIQUIS) tablet 5 mg 5 mg Oral BID Carlos Vila MD 5 mg at 826 childrens multivitamin with iron (FLINTSTONES COMPLETE) chewable tablet 1 tablet 1 tablet Oral Daily Carlos Vila MD 1 tablet at 03/11/24 0838 [Held by provider] ertapenem (INVanz) 1 g vial to attach to NS 100 mL bag 1 g Intravenous Q24H June Jones MD 1 g at 03/10/24 7457 famotidine (PEPCID) injection 40 mg 40 mg Intravenous Q12H Carlos Vila MD 40 mg at 03/11/24 0544 folic acid (FOLVITE) tablet 1 mg 1 mg Oral Daily Ady Thurston MD 1 mg at 03/11/24 0826 gabapentin (NEURONTIN) capsule 800 mg 800 mg Oral TID Ady Thurston MD 800 mg at 03/11/24 0826 heparin 100 unit/mL injection 5-10 mL 5-10 mL Intracatheter Q28 Days Carlos Vila MD heparin lock flush 10 UNIT/ML injection 5-10 mL 5-10 mL Intracatheter Q24H Carlos Vila MD 5 mL at 03/11/24 0825 Lidocaine (LIDOCARE) 4 % Patch 1 patch 1 patch Transdermal Q24H Ady Thurston MD 1 patch at 03/11/24 0826 methocarbamol (ROBAXIN) tablet 500 mg 500 mg Oral 4x Daily Carlos Vila MD 500 mg at 03/09/24 1643 methylPREDNISolone (MEDROL) tablet 4 mg 4 mg Oral QAM AC Carlos Vila MD 4 mg at 03/11/24 0826 And methylPREDNISolone (MEDROL) tablet 4 mg 4 mg Oral Daily with lunch Carlos Vila MD 4 mg at 03/10/24 1147 And methylPREDNISolone (MEDROL) tablet 4 mg 4 mg Oral At Bedtime Carlos Vila MD 4 mg at 03/10/24 2132 pantoprazole (PROTONIX) IV push injection 40 mg 40 mg Intravenous Daily Carlos Vila MD 40 mg at 03/11/24 0826 scopolamine (TRANSDERM) 72 hr patch 1 patch 1 patch Transdermal Q72H Carlos Vila MD 1 patch at 03/08/24 1459 And scopolamine (TRANSDERM-SCOP) Patch in Place Transdermal Q8H Carlos Vila MD sodium chloride (PF) 0.9% PF flush 10-20 mL 10-20 mL Intracatheter Q28 Days Carlos Vila MD10 mL at 03/08/24 0956 Data All microbiology laboratory data reviewed. Recent Labs Lab Test 03/09/24 0618 03/08/24 1402 03/06/24 2224 03/06/24 1649 WBC 24.7* 19.5* -- 10.8 HGB 9.0* 10.0* 9.4* 7.6* HCT 27.8* 30.2* -- 23.0* MCV 91 89 -- 89 PLT 223 210 -- 317 Recent Labs Lab Test 03/09/24 0618 03/06/24 1649 03/05/24 2148 CR 0.54 0.73 0.63 Recent Labs Lab Test 03/07/24 1049 SED 44* 03/09/2024 0459 03/11/2024 0917 Blood Culture Hand, Left [[id number]] (Abnormal) Blood from Hand, Left Preliminary result Component Value Culture Positive on the 1st day of incubation Abnormal P Gram negative bacilli Panic P 1 of 1 bottles 03/08/2024 1419 03/11/2024 0722 Blood Culture Hand, Left [[id number]] (Abnormal) Blood from Hand, Left Preliminary result Component Value Culture Positive on the 1st day of incubation Abnormal P Klebsiella pneumoniae ESBL Panic P 2 of 2 bottles Susceptibility Klebsiella pneumoniae ESBL [place] (Preliminary) Amikacin <=2 ug/mL Susceptible * Ampicillin Resistant 1 Ampicillin/ Sulbactam 16 ug/mL Intermediate * Cefepime Resistant Cefotaxime Resistant * Cefoxitin <=4 ug/mL Susceptible * Ceftazidime Resistant Ceftriaxone Resistant Ciprofloxacin 0.5 ug/mL Intermediate Extended Spectrum Beta-Lactamase Positive ug/mL ESBL Positive * Gentamicin >=16 ug/mL Resistant Levofloxacin 1 ug/mL Intermediate Meropenem <=0.25 ug/mL Susceptible 2 Nitrofurantoin 64 ug/mL Intermediate * Piperacillin/Tazobactam <=4 ug/mL Susceptible Tobramycin 2 ug/mL Susceptible Trimethoprim/Sulfamethoxazole <=1/19 ug/mL Susceptible * Carlos Vila MD - 03/10/2024 4:30 PM CDT Cross cover progress note Patient received her dose of Invanz this evening and after the infusion was done developed a rash over her torso associated with itchiness as well as tachycardia. Exam Patient seen bedside with the nurse, is tachycardic and has a blotchy macular rash over her chest and upper arms Plan Hold Invanz, antibiotics will need to be discussed tomorrow Start the patient on a higher dose of Benadryl Placed on IV twice daily Pepcid Patient already got steroids today through her Medrol Dosepak. Carlos Vila MD * Masood Amato MD - 03/10/2024 3:46 PM CDT [facility] Medicine Progress Note - Hospitalist Service Date of Admission: 03/05/2024 Primary Care Physician Segundo Mcclelland CONSULTANTS: ID, neurosurgery Assessment & Plan History of Present Illness: Sandi Lopez is a 38 year old female with a complicated past medical history including POTS requiring central access currently with a port in place as of 02/04/24, multiple episodes of bacteremia and line infections of unclear infectious nidus, chronic back pain with previous lumbar discectomyfor herniation, chronic pain syndrome, anxiety, MDD, borderline personality disorder, gastroparesis, nephrolithiasis, iron deficiency anemia, GERD, obesity, and suspected opiate/benzodiazepine dependence who presents with severe back pain. She reports chronic low back pain from previous surgery fordisc herniation. She was seen in the ER on 02/25 and 03/02 for acute on chronic low back pain along with numbness down the left side and reported leg weakness. She had a lumbar MRI that showed L4-L5 opposing endplate edema with associated has been that could be osteomyelitis although felt to be less likely overall based on the imaging. Neurosurgery was contacted recommended following inflammatory markers. Her CRP was high at that time as was ESR she had blood cultures drawn. Peripheral blood culture now positive for strep mitis 1 of 2 culture from 03/02/24 thought to be contaminant per ID. She wastold to come back to the emergency room for further treatment and workup. The pain is now severe inthe low back. She cannot find any comfortable position. She has been taking acetaminophen 4500 mg in a day and oral Dilaudid at home without any improvement. Reports similar paresthesias and weaknessto previous. She has had ongoing issues with nausea and vomiting from her gastroparesis. She felt absolutely terrible throughout the day today and had shaking chills for about 90 minutes this morning. She did not check her temperature, but she was sweaty as well after this. She denies any new dysuria or hematuria. No new cough or shortness of breath. History obtained from patient, medical record, and from CLAIR Cronin in the emergency department. Blood pressure 160/79 then 109/70, tachycardic 113 then 99, temperature 98.9 ??F, oxygen 90% on room air. Potassium low at 3.2 otherwise BMP unremarkable. CRP elevated at 142 as is ESR 37. Lactic acid normal at 1.3. WBC 12.9, drop in hemoglobin to 9.5, platelet count 239. Stool occult blood is negative. Previous lumbar spine shows possible L4-5 osteomyelitis although this could be from degenerative change. She received 2 g IV Ancef, oral Dilaudid 2 mg, 1 L NS, 40 g oral potassium but she could not tolerate this due to vomiting, and a dose of Eliquis. Admit inpatient with ID and neurosurgery consultation. Severe acute on chronic low back pain, possible L4-L5 osteomyelitis, complicated by her Chronic pain syndrome, Strep mitis bacteremia 1 of 2 blood culture 03/02/24 (likely contaminant), possible infected port vs Possible odontogenic source, Hx bacteremia, ESBl, fungemia, severe back pain: Patient with a history of chronic back pain with previous discectomy, no hardware in place. Severely worsening back pain in the past few days despite oral Dilaudid prior to admission. Reporting rigors 03/05/24 and she did have a positive blood culture from the ER on 03/02 for strep mitis 1 of 2. Neurosurgery recommended lumbar MRI which was done on 03/02 that showing opposing endplate edema L4-L5, but no enhancement of the intervertebral disc or abnormal single in the paraspinous tissues so infectionseems less likely based on imaging alone and could represent degenerative Modic type I change per radiology. Per neurosurgery does not think this is osteo. However, given that she had rigors, bacteremia, port in place, self-reported severely worsening pain, and CRP now rising to 142 from 112 few days prior to admission and ESR 37 from 18 infection involving the spine is possible. Also has a new leukocytosis of 12.9. She does have chronic pain and has had numerous short-term prescriptions over the past many months for oral Dilaudid along with exhibiting symptoms and behavior of pain out of proportion to what would be suspected from previous spine imaging while here in the hospital. However, if she has acute osteomyelitis then this certainly would result in severe pain in any individual. Anaphylaxis allergy listed NSAID. She reports taking 4500 mg of acetaminophen a day. Seen in the ER 02/10, 02/16x2, 02/25, 03/02 for chest pain and then back pain. Was recently on a medrol dose pack per her primary with some improvement. -Previous bacteremia infections: -April 2023 blood cultures growing Strep anginosus, Staph aureus, Staph hominis, strep mitis -10/23/2023 ESBL Klebsiella pneumoniae cultures positive x 2. Line associated -10/28/2023 Enterobacter [place] complex and Enterococcus faecalis positive cultures -11/09/2023 Anderson like the Lyrica and Anderson dubliniensis blood cultures. Port removed then -01/08/2024 positive culture for Actinomyces odontolyticus, not treated and felt to be contaminant. No line in place then. -03/02/2024 peripheral blood culture positive for strep mitis 1 of 2, per ID likely contaminant -03/05/24 blood culture negative to date 2 of 2 -03/07/24 blood culture negative to date 1 of 1 -03/08/24 blood culture positive Klebsilla (back within 12 hours) -03/09/24 blood culture pending 03/10/24 blood culture still growing Gram negative bacilli. ID note reviewed, ordered CT of the chest abdomen and pelvis to look for a focus of infection. Based on the types of bacteria in the setting of central line placement this does bring up the possibility of insufficient treatment of previous infections, bad teeth, or possible self inoculation. Alternatively, there are multiple oral loan organisms previously growing in her blood and she reports having a cracked right upper molar that intermittently drains some fluid which could be a source for ongoing intermittent bacteremia. She does have a cracked tooth on exam that is not currently actively draining. She has not had the tooth pulled or fixed due to not having dental insurance. On admission was placed on IV Ancef 2 g every 8 hours covering the strep mitis bacteremia, ID saw, and given recurrent cultures negative this is thought to be contaminant so her antibiotics were stopped. Also neurosurgery has seen and is not planning any surgical intervention and have signed off not thinking this represents true osteo. If gets worse they should be called. Given her history, goal from my point of view would be not to do surgery and most certainly should not have any hardware placed. Will need to follow blood cultures, fever curve. Continue on Acetaminophen, Oral Dilaudid, Flexeril/robaxin. Physical therapy to see. She was also placed on a medrol dose pack. If persistent bacteremia then would need to consider port removal, defer to ID. Will need outpatient follow up with oral surgery or dentistry as the source could be her teeth. We do not have oral surgery to comes to [facility]. Hopefully blood cultures on follow-up remain negative or also need to consider removing her Port-A-Cath. Sed rate is up to 44 from 37. CRP down to 71 from 143. Venover Drug reaction vs sepsis (Klebsiella) unclear source possible UTI On 03/08, when the patient was given venofer per her port she developed severe nausea, vomiting, andrigors. Her temp went up to over 104. She was treated with solumedrol, ativan (has allergies to zofran/phenergen/reglan/compazine), stopped the iron, given IV fluids, and benadryl and pepcid. She wasgiven tylenol pr and over time she improved. She did develop agitation and confusion related to her medications and required a code 21 called but this improved over time. Her lactic acid on first check was elevated at 3.3. She was given IV fluids and came down to 0.8. Her white blood cell count waschecked as well and is elevated at 24.7 but again this is in the setting of getting steroids. I also checked blood cultures and unfortunately these came back quickly with a gram-negative bacillus showing Klebsiella by verigene and was CTX-m. Patient was placed on meropenum overnight and changed to ertapenem. Previous urine analysis on 03/06 was negative but per report she started having urinary hesitancy a few days ago. At the point per ID, no need to remove her port. Repeat blood culture sent today. Acute nausea, vomiting Patient is limited in what can be used due to her intolerances. Patient was given Ativan during herepisode as above. I also added scopolamine which she still has in place. She also is on a PPI for gastritis. History PEs, chronic anticoagulation: History PEs, most recently November 2023. Chronically on Eliquis 5 mg twice daily which is being held initially in case of need for bone biopsy or procedure in addition to her acutely worsening anemia. Last dose evening 03/05 in the ER. PCD's. Resumed her lifelong DOAC. History of induced pulmonary embolus after delivery. 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 Acute on chronic anemia: Hemoglobin dropping to 7.6 from a baseline of 11-12. She has chronic iron deficiency anemia. She jackie Eliquis, but denies any blood loss. Stool occult blood is negative. Suspect in part related to the acute inflammatory response evidenced by high CRP in the setting of bacteremia possible osteomyelitis. CBC and type and screen in the morning . Resuming Eliquis initially as above. Did get transfused 4.9 and hemoglobin up to 9.4. sees Dr Allyssa Justice. Her last note from 03/01/24 has been reviewed. Patient with chronic anemia since age 13 initially was due to menstral bleedin but has had a hysterectomy. Now gatroparesis and malabsorption is an issue. Patient with a history of getting venofer. Tried to give her Venofer but she had a reaction as above. Not sure if it was a true drug reaction versus sepsis.. Repeat hemoglobin is up to 9 as of 03/09/2024. Hypokalemia: Potassium low at 3.2. Has chronic issues with vomiting. Was not tolerating oral potassium in the ER. Placed on replacement. Potassium up to 4 as of 03/09/2024. Gastroparesis, Nausea, vomiting: Reports history of gastroparesis secondary previous Ozempic use. She has chronic nausea and vomiting. She has allergies listed to Compazine, Zofran, metoclopramide, and Phenergan. This many allergiesto different antinausea medications is extremely unlikely in any 1 person. She has issues with anxiety that she self-reports is severely worse in the hospital and per chart review also has issues with concerns for benzodiazepine abuse in the past. Based on thorough chart review by my partner, we dosuspect the allergies listed are in part a way to receive IV lorazepam for refractory nausea in addition to IV pain medications in the hospital. Malabsorption has been an issue. She has received Ativan while here and I also started her on scopolamine. POTS: Chronic issues with syncope and near syncopal episodes with previous diagnosis of POTS. She says she is post to get IV fluids twice per week and this is why she has had PICC line and ports in the past. Port removed in October 2023 for bacteremia/fungemia. Port replaced 02/04/2024. Seen in the ER 01/18, 01/19, 01/27, 01/28 for syncope. IV fluid boluses as needed while here for symptoms Anxiety MDD Borderline personality disorder Insomnia Drug seeking behavior: These are the diagnoses listed in her previous medical history, unclear if previously diagnosed by a psychiatrist. She has had multiple prescriptions in the past for 1 mg oral lorazepam as needed foranxiety. She informs me that her anxiety has been through the roof when she is hospitalized and will need medication for this. She also takes Ambien 10 mg at night as needed. Resume Ambien, Oral lorazepam as needed for anxiety. Need to watch for drug seeking behavior for benzos/opiates. Also I did let the patient know we are worried about self injurious behavior given her multiple blood cultures with multiple different organisms. Patient denies self injecting or trying to harm herself at this point. Patient has a pain contract with her primary care provider Dr. Mcclelland Obesity: BMI 40.35 as of 03/07/2024, complicates cares History nephrolithiasis Could contribute to back pain however her MRI did show some findings in the lumbar spine area. Could consider always go looking for kidney stone as a cause of her pain if her pain should change. DVT Prophylaxis: Pneumatic Compression Devices Code Status: Full Code FEN: Regular diet Lines: Right chest port Discharge Dispo: TBD. May need weeks of IV antibiotics. Estimated Disch Date / # of Days until Disch: Admit inpatient for bacteremia and potential lumbar osteomyelitis. Anticipate multiple day hospitalization. Patient could be here for days that she is requiring IV antibiotics for Klebsiella found on blood cultures. Clinically Significant Risk Factors Present on Admission # Hypokalemia: Lowest K = 3.2 mmol/L in last 2 days, will replace as needed # Drug Induced Coagulation Defect: home medication list includes an anticoagulant medication # Obesity: Estimated body mass index is 31.47 kg/m?? as calculated from the following: Height as of this encounter: 1.676 m (5' 6). Weight as of this encounter: 88.5 kg (195 lb). # Financial/Environmental Concerns: has not sought the care of a dentist due to cost and lack of insurance coverage Discussed plan of care with nursing, social work, case management, and vascular's disease notes reviewed once again RESTRAINTS: not indicated Code Status: Full Code Follow up plan: Needs to see oral surgery vs dentist as outpatient for dental extraction This document was created using voice recognition technology. Please excuse any typographical errors that may have occurred. Please call with any questions. Disposition Plan Expected Discharge Date: 03/11/2024 Destination: home;home with family;home with help/services Discharge Comments: Home patient is getting need to plan for ongoing IV antibiotics. Not sure if this can be done at home. Pain will also be a contributing factor to keeping her in the hospital. Barrier to discharge: Improved pain, plan for ongoing antibiotics. . Masood Amato MD Hospitalist Service [facility] Securely message with [employer] (more info) Text page via [facility] Paging/Directory Interval History No new complaints, allergic reaction is improved. ROS: A comprehensive review of systems was negative except for items noted in the HPI. Patient currently denies any fever, chills, sweats, nausea, vomiting, diarrhea, shortness of breath, or chest pain. Physical Exam Vital Signs: Temp: 97 ??F (36.1 ??C) Temp src: Oral BP: 136/77 Pulse: 96 Resp: 18 SpO2: 100 % O2 Device: None (Room air) Weight: 250 lbs .03 oz General appearance: Patient is alert and oriented x3, is in minimal distress and appears uncomfortable, pleasant and conversing normally, speaking in full sentences, appears stated age, sitting up inbed, looks a lot less ill than she did yesterday afternoon HEENT: Mucous membranes are moist RESPIRATORY: Clear to auscultation bilateral, good air movement CARDIOVASCULAR: Regular rate and rhythm, no murmurs Chest: Right Port-A-Cath in place without any evidence of tenderness, erythema, or drainage GASTROINTESTINAL: obese, Non-distended, non-tender, soft, bowel sounds present throughout, NEUROLOGIC: Cranial nerves II-XII intact, without any focal deficits EXTREMITIES: Moves all extremities, no clubbing, cyanosis, nor edema : Garcia not present Data I have personally reviewed the following data over the past 24 hrs: Procal: N/A CRP: N/A Lactic Acid: 0.7 Imaging: Results for orders placed or performed during the hospital encounter of 03/02/24 MR Lumbar Spine w/o & w Contrast Narrative EXAM: MR LUMBAR SPINE W/O and W CONTRAST LOCATION: [facility] DATE: 03/02/2024 INDICATION: low back pain and patient reporting saddle anesthesia COMPARISON: Plain radiographs 12/19/2023. CONTRAST: 9ML LEONARDA TECHNIQUE: Routine Lumbar Spine MRI without and with IV contrast. FINDINGS: Nomenclature is based on 5 lumbar type vertebral bodies. Normal vertebral body heights and alignment. Mixed Modic type I and type II changes with associated contrast enhancement at the opposing [id number]. No abnormal contrast enhancement in the intervertebral disc. Normal distal spinal cord and cauda equina with conus medullaris at T12-L1. Noextraspinal abnormality. Unremarkable visualized bony pelvis. T12-L1: Normal [...] No spinal canal or neural foraminal stenosis. Impression IMPRESSION: 1. Multilevel lumbar spondylosis without high-grade [...] suspicion for discitis osteomyelitis, recommend follow-up imaging. *Note: Due to a large number of results and/or encounters for the requested time period, some results have not been displayed. A complete set of results can be found in Results Review. Procedures: none I have personally have reviewed the patient's most up to date labs, orders, and medications myself * Daisy Schmitt, PT - 03/10/2024 12:01 PM CDT 03/10/24 1132 Appointment Info Signing Clinician's Name / Credentials (PT) Daisy Schmitt DPT Living Environment People in Home child(almita), dependent Current Living Arrangements house Home Accessibility stairs within home Number of Stairs, Within Home, Primary greater than 10 stairs Stair Railings, Within Home, Primary railings safe and in good condition Transportation Anticipated family or friend will provide Living Environment Comments Pt lives in house with dependent children, youngest 10 y.o. and oldest 15 y.o, reports older children able to assist. Level entry into the home, full flight of stairs to reach bedroom, reports ability to stay on main level if needed. Self-Care Usual Activity Tolerance good Current Activity Tolerance fair Equipment Currently Used at Home none Fall history within last six months yes Number of times patient has fallen within last six months (did not provide value, but reports frequently passes out d/t POTS dx) Activity/Exercise/Self-Care Comment Pt IND with mobility for mobility and cares. Reports having FWWat home from previous surgery if needed upon DC General Information Onset of Illness/Injury or Date of Surgery 03/05/24 Referring Physician Carlos Vila MD Patient/Family Therapy Goals Statement (PT) return home, improve pain Pertinent History of Current Problem (include personal factors and/or comorbidities that impact thePOC) Sandi Lopez is a 38 year old female with a complicated past medical history including POTS requiring central access currently with a port in place as of 02/03, multiple episodes of bacteremia and line infections of unclear infectious nidus, chronic back pain with previous lumbar discectomy for herniation, chronic pain syndrome, anxiety, MDD, borderline personality disorder, gastroparesis, nephrolithiasis, iron deficiency anemia, GERD, obesity, and suspected opiate/benzodiazepine dependence who presents with severe back pain. She reports chronic low back pain from previous surgery for disc herniation. She was seen in the ER on 02/25 and 03/02 for acute on chronic low back pain along with numbness down the left side and reported leg weakness. She had a lumbar MRI that showed L4-L5 opposing endplate edema with associated has been that could be osteomyelitis although felt to be lesslikely overall based on the imaging. Existing Precautions/Restrictions fall Cognition Affect/Mental Status (Cognition) anxious Orientation Status (Cognition) oriented x 4 Follows Commands (Cognition) WFL Pain Assessment Patient Currently in Pain Yes, see Vital Sign flowsheet (did not provide value) Integumentary/Edema Integumentary/Edema Comments edema noted in all extremities Posture Posture Forward head position;Protracted shoulders Range of Motion (ROM) Range of Motion ROM deficits secondary to pain Strength (Manual Muscle Testing) Strength (Manual Muscle Testing) Deficits observed during functional mobility Bed Mobility Comment, (Bed Mobility) IND supine>Sit Transfers Comment, (Transfers) CGA sit<>stand Gait/Stairs (Locomotion) Distance in Feet (Gait) 5' for eval Comment, (Gait/Stairs) CGA ambulation Balance Balance Comments Good sitting balance, fair standing balance Sensory Examination Sensory Perception patient reports no sensory changes Clinical Impression Criteria for Skilled Therapeutic Intervention Yes, treatment indicated PT Diagnosis (PT) impaired mobility Influenced by the following impairments decreased activity tolerance, weakness, pain Functional limitations due to impairments impaired bed mobility, transfers, ambulation, stairs Clinical Presentation (PT Evaluation Complexity) evolving Clinical Presentation Rationale clinical judgement, chart review Clinical Decision Making (Complexity) moderate complexity Planned Therapy Interventions (PT) balance training;bed mobility training;gait training;home exercise program;neuromuscular re-education;patient/family education;stair training;strengthening;ROM (range of motion);transfer training;home program guidelines;risk factor education;progressive activity/ex ercise Risk & Benefits of therapy have been explained evaluation/treatment results reviewed;care plan/treatment goals reviewed;risks/benefits reviewed;current/potential barriers reviewed;participants voiced agreement with care plan;participants included;patient PT Total Evaluation Time PT Eval, Moderate Complexity Minutes (06408) 6 Physical Therapy Goals PT Frequency Daily PT Predicted Duration/Target Date for Goal Attainment 03/13/24 PT Goals Bed Mobility;Transfers;Gait;Stairs PT: Bed Mobility Independent;Supine to/from sit PT: Transfers Independent;Sit to/from stand PT: Gait Independent;50 feet PT: Stairs Supervision/stand-by assist;Greater than 10 stairs Interventions Interventions Quick Adds Therapeutic Activity Therapeutic Activity Therapeutic Activities: dynamic activities to improve functional performance Minutes (35068) 15 Symptoms Noted During/After Treatment Increased pain;Fatigue PT Discharge Planning PT Plan progress ambulation distance (trial cane?), trial stairs as able PT Discharge Recommendation (DC Rec) home with assist;home with outpatient physical therapy PT Rationale for DC Rec Pt below baseline level of mobility, currently requiring Ax1. Anticipate with further pain management and IP PT that pt will progress to return home with assist from teenage children. Recommend OP PT to address LBP. PT Brief overview of current status Ax1 Total Session Time Timed Code Treatment Minutes 15 Total Session Time (sum of timed and untimed services) 21 * June Jones MD - 03/10/2024 10:56 AM CDT [facility] Infectious Disease Progress Note Date of Service (when I saw the patient): 03/10/2024 Assessment & Plan Sandi Lopez is a 38 year old who was admitted on 03/05/2024. 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, loss of > 100 lbs, hx of DVT/PE, severe anxiety, anemia, thrombocytosis, chronic pain, obesity admitted with positive blood culture johny 1/2 for strep oralis/ mitis 2nd blood culture is still negative fr strep mitis Repeat blood cultures are pending Back pain: MRI no discitis/ osteo Imaging less suspicious for osteomyelitis So far only 1/2 positive cultures for strep mitis a contaminant New in the hospital fevers yesterday and now positive blood cultures with gram- negative jamaal furtheridentified as Klebsiella ESBL organism Of note all prior cultures are negative multiple done on the , and and 07 March Now on meropenem Recommendations: Patient reports new urinary hesitancy that started 2 days ago followed by high fevers and positive blood cultures for Klebsiella Checked UA is completely negative for infection findings source of bacteremia is unclear, ? Spine vs intraabdominal Check CT chest abdomen pelvis Continue ertapenem for the ESBL kleb in the blood cultures Follow repeat cultures Can ignore the 1/2 positive blood cultures fr strep mitis as contaminant Port is okay to stay so far but if multiple positive blood cultures then will need to be removed Recommend IR guided biopsy of Lumbar spine to confirm the diagnosis of osteo June Jones MD Interval History New fever yesterday Tolerating antibiotics ok No new rashes or issues with antibiotics Labs reviewed No changes to past medical, social or family history New positive blood culture now with klebsiella Physical Exam Temp: 97 ??F (36.1 ??C) Temp src: Oral BP: 136/77 Pulse: 96 Resp: 18 SpO2: 100 % O2 Device: None (Room air) Vitals: 03/05/24 2053 03/06/24 1938 03/07/24 1121 Weight: 88.5 kg (195 lb) 107.9 kg (237 lb 14 oz) 113.4 kg (250 lb) Vital Signs with Ranges Temp: [96 ??F (35.6 ??C)-102.3 ??F (39.1 ??C)] 97 ??F (36.1 ??C) Pulse: [91-110] 96 Resp: [18] 18 BP: (108-136)/(59-96) 136/77 SpO2: [96 %-100 %] 100 % Constitutional: Awake, alert, cooperative, no apparent distress Lungs: Clear to auscultation bilaterally, no crackles or wheezing Cardiovascular: Regular rate and rhythm, normal S1 and S2, and no murmur noted Abdomen: Normal bowel sounds, soft, non-distended, non-tender Skin: No rashes, no cyanosis, no edema Other: Medications Current Facility-Administered Medications Medication Dose Route Frequency Provider Last Rate Last Admin Current Facility-Administered Medications Medication Dose Route Frequency Provider Last Rate Last Admin apixaban ANTICOAGULANT (ELIQUIS) tablet 5 mg 5 mg Oral BID Carlos Vila MD 5 mg at 846 childrens multivitamin with iron (FLINTSTONES COMPLETE) chewable tablet 1 tablet 1 tablet Oral Daily Carlos Vila MD 1 tablet at 03/10/24 0846 ertapenem (INVanz) 1 g vial to attach to NS 100 mL bag 1 g Intravenous Q24H June Jones MD 1 g at03/09/24 1355 folic acid (FOLVITE) tablet 1 mg 1 mg Oral Daily Ady Thurston MD 1 mg at 03/10/24 0847 gabapentin (NEURONTIN) capsule 800 mg 800 mg Oral TID Ady Thurston MD 800 mg at 03/10/24 0845 heparin 100 unit/mL injection 5-10 mL 5-10 mL Intracatheter Q28 Days Carlos Vila MD heparin lock flush 10 UNIT/ML injection 5-10 mL 5-10 mL Intracatheter Q24H Carlos Vila MD 5 mL at 03/10/24 0910 Lidocaine (LIDOCARE) 4 % Patch 1 patch 1 patch Transdermal Q24H Ady Thurston MD 1 patch at 03/10/24 0847 methocarbamol (ROBAXIN) tablet 500 mg 500 mg Oral 4x Daily Carlos Vila MD 500 mg at 03/09/24 1643 methylPREDNISolone (MEDROL) tablet 4 mg 4 mg Oral QAM AC Carlos Vila MD 4 mg at 03/10/24 0846 And methylPREDNISolone (MEDROL) tablet 4 mg 4 mg Oral Daily with lunch Carlos Vila MD 4 mg at 03/09/24 1205 And methylPREDNISolone (MEDROL) tablet 4 mg 4 mg Oral Daily with supper Carlos Vila MD And methylPREDNISolone (MEDROL) tablet 4 mg 4 mg Oral At Bedtime Carlos Vila MD pantoprazole (PROTONIX) IV push injection 40 mg 40 mg Intravenous Daily Carlos Vila MD 40 mg at 03/10/24 0846 scopolamine (TRANSDERM) 72 hr patch 1 patch 1 patch Transdermal Q72H Carlos Vila MD 1 patch at 03/08/24 1459 And scopolamine (TRANSDERM-SCOP) Patch in Place Transdermal Q8H Carlos Vila MD sodium chloride (PF) 0.9% PF flush 10-20 mL 10-20 mL Intracatheter Q28 Days Carlos Vila MD10 mL at 03/08/24 0956 sodium chloride (PF) 0.9% PF flush 3 mL 3 mL Intracatheter Q8H Ady Thurston MD 3 mL at 03/09/24 0804 Data All microbiology laboratory data reviewed. Recent Labs Lab Test 03/09/24 0618 03/08/24 1402 03/06/24 2224 03/06/24 1649 WBC 24.7* 19.5* -- 10.8 HGB 9.0* 10.0* 9.4* 7.6* HCT 27.8* 30.2* -- 23.0* MCV 91 89 -- 89 PLT 223 210 -- 317 Recent Labs Lab Test 03/09/24 0618 03/06/24 1649 03/05/24 2148 CR 0.54 0.73 0.63 Recent Labs Lab Test 03/07/24 1049 SED 44* Recent Labs Lab Test 04/17/21 0529 12/28/20 1026 12/28/20 0630 12/27/20 0723 12/27/20 0615 12/26/20 1205 12/26/20 1158 12/24/20 2230 12/24/20 0131 CULT 50,000 to 100,000 colonies/mL mixed urogenital loan Susceptibility testing not routinely done No growth No growth No growth No growth No growth Cultured on the 1st day of incubation: Streptococcus salivarius group * Critical Value/Significant Value, preliminary result only, called to and read back by Faith Lay RN @ 0212 12/27/20 TM. (Note) NEGATIVE for the following: Staphylococcus spp., Staph aureus, Staph epidermidis, Staph lugdunensis, Streptococcus spp., Strep pneumoniae, Strep pyogenes, Strep agalactiae, Strep anginosus group, Enterococcus faecalis, Enterococcus faecium, and Listeria spp. by [employer] multiplex nucleic acid test. Final identification and antimicrobial susceptibility testing will be verified by standard methods. Critical Value/Significant Value called to and read back by Faith Lay RN at 0450 12/27/20 hg No growth No growth All cultures: Recent Labs Lab 03/09/24 0937 03/09/24 0459 03/08/24 1419 03/07/24 1049 03/06/24 2344 03/05/24 2221 03/05/24 2148 CULTURE No growth after 12 hours Positive on the 1st day of incubation* Gram negative bacilli* Positive on the 1st day of incubation* Klebsiella pneumoniae ESBL* No growth after 2 days No growth after 3 days No growth after 4 days No growth after 4 days Blood culture: Results for orders placed or performed during the hospital encounter of 03/05/24 Blood Culture Hand, Left Specimen: Hand, Left; Blood Result Value Ref Range Culture No growth after 12 hours Blood Culture Hand, Left Specimen: Hand, Left; Blood Result Value Ref Range Culture Positive on the 1st day of incubation (A) Culture Gram negative bacilli (AA) Blood Culture Hand, Left Specimen: Hand, Left; Blood Result Value Ref Range Culture Positive on the 1st day of incubation (A) Culture Klebsiella pneumoniae ESBL (AA) Susceptibility Klebsiella pneumoniae ESBL - [place]* Ampicillin* Resistant * Intrinsically Resistant Piperacillin/Tazobactam <=4 Susceptible ug/mL Ceftazidime Resistant Ceftriaxone Resistant Cefepime Resistant Meropenem* <=0.25 Susceptible ug/mL * Enterobacterales that are susceptible to meropenem are usually susceptible to ertapenem. Gentamicin >=16 Resistant ug/mL Tobramycin 2 Susceptible ug/mL Ciprofloxacin 0.5 Intermediate ug/mL Levofloxacin 1 Intermediate ug/mL Trimethoprim/Sulfamethoxazole <=1/19 Susceptible ug/mL * ESBL (extended spectrum beta lactamase) producing organisms require contact precautions. Blood Culture Arm, Left Specimen: Arm, Left; Blood Result Value Ref Range Culture No growth after 2 days Blood Culture Arm, Right Specimen: Arm, Right; Blood Result Value Ref Range Culture No growth after 3 days Blood Culture Arm, Right Specimen: Arm, Right; Blood Result Value Ref Range Culture No growth after 4 days Blood Culture Arm, Right Specimen: Arm, Right; Blood Result Value Ref Range Culture No growth after 4 days Results for orders placed or performed during the hospital encounter of 03/02/24 Blood Culture Arm, Left Specimen: Arm, Left; Blood Result Value Ref Range Culture Positive on the 1st day of incubation (A) Culture Streptococcus mitis/oralis (AA) Susceptibility Streptococcus mitis/oralis - [place] Ampicillin <=0.06 Susceptible ug/mL Penicillin 0.12 Susceptible ug/mL Clindamycin <=0.06 Susceptible ug/mL Cefotaxime <=0.25 Susceptible ug/mL Ceftriaxone <=0.25 Susceptible ug/mL Vancomycin 0.5 Susceptible ug/mL Meropenem <=0.06 Susceptible ug/mL Blood Culture Arm, Right Specimen: Arm, Right; Blood Result Value Ref Range Culture No Growth Results for orders placed or performed during the hospital encounter of 01/09/24 Blood Culture Peripheral Blood Specimen: Peripheral Blood Result Value Ref Range Culture No Growth Blood Culture Peripheral Blood Specimen: Peripheral Blood Result Value Ref Range Culture No Growth Results for orders placed or performed during the hospital encounter of 01/08/24 Blood Culture Peripheral Blood Specimen: Peripheral Blood Result Value Ref Range Culture Positive on the 2nd day of incubation (A) Culture Lactobacillus species (AA) Culture Actinomyces odontolyticus (AA) Susceptibility [place] (Actinomyces) odontolytica - [place] Penicillin 0.094 Susceptible ug/mL Amoxicillin/Clavulanate 0.19 Susceptible ug/mL Ceftriaxone 0.75 Susceptible ug/mL Clindamycin 0.50 Susceptible ug/mL Meropenem 0.25 Susceptible ug/mL metronidazole 16 Intermediate ug/mL Lactobacillus species - [place]* Ampicillin 0.064 Susceptible ug/mL Penicillin 0.064 Susceptible ug/mL Clindamycin 0.125 Susceptible ug/mL Gentamicin <=0.064 No interpretation available ug/mL Levofloxacin >32 No interpretation available ug/mL Vancomycin >256 Resistant ug/mL * Antibiotics listed as No Interpretation have no regulatory guidelines for susceptibility/resistance available. Blood Culture Peripheral Blood Specimen: Peripheral Blood Result Value Ref Range Culture No Growth Results for orders placed or performed during the hospital encounter of 11/23/23 Blood Culture Peripheral Blood Specimen: Peripheral Blood Result Value Ref Range Culture No Growth Blood Culture Peripheral Blood Specimen: Peripheral Blood Result Value Ref Range Culture No Growth Results for orders placed or performed during the hospital encounter of 11/10/23 Blood Culture Arm, Left Specimen: Arm, Left; Blood Result Value Ref Range Culture No Growth Blood Culture Wrist, Left Specimen: Wrist, Left; Blood Result Value Ref Range Culture No Growth Blood Culture Hand, Left Specimen: Hand, Left; Blood Result Value Ref Range Culture No Growth Blood Culture Hand, Right Specimen: Hand, Right; Blood Result Value Ref Range Culture No Growth Blood Culture Hand, Left Specimen: Hand, Left; Blood Result Value Ref Range Culture No Growth Blood Culture Hand, Left Specimen: Hand, Left; Blood Result Value Ref Range Culture No Growth Blood Culture Peripheral Blood Specimen: Peripheral Blood Result Value Ref Range Culture Positive on the 2nd day of incubation (A) Culture Bacillus species, not anthracis nor cereus group (AA) Culture [place] dubliniensis (AA) Culture [place] lipolytica (AA) Susceptibility Bacillus species, not anthracis nor cereus group - [place] Ampicillin 0.094 Susceptible ug/mL Penicillin 0.064 Susceptible ug/mL Ciprofloxacin 0.094 Susceptible ug/mL Clindamycin 4 Resistant ug/mL Gentamicin 0.064 Susceptible ug/mL Levofloxacin 0.094 Susceptible ug/mL Vancomycin 0.75 Susceptible ug/mL [place] dubliniensis - [place]* Amphotericin B 0.5 No interpretation available ug/mL Micafungin 0.06 No interpretation available ug/mL Fluconazole 0.5 No interpretation available ug/mL Voriconazole <=0.008 No interpretation available ug/mL * Antibiotics listed as No Interpretation have no regulatory guidelines for susceptibility/resistance available. Testing for antifungal agents was validated in house by the [facility] ([facility]) [place], [place] Blood Culture Peripheral Blood Specimen: Peripheral Blood Result Value Ref Range Culture Positive on the 2nd day of incubation (A) Culture [place] lipolytica (AA) Results for orders placed or performed during the hospital encounter of 11/09/23 Blood Culture Peripheral Blood Specimen: Peripheral Blood Result Value Ref Range Culture Positive on the 2nd day of incubation (A) Culture [place] lipolytica (AA) Susceptibility [place] lipolytica - [place]* Amphotericin B 2.0 No interpretation available ug/mL Micafungin 0.5 No interpretation available ug/mL Fluconazole 4.0 No interpretation available ug/mL Voriconazole 0.06 No interpretation available ug/mL * Antibiotics listed as No Interpretation have no regulatory guidelines for susceptibility/resistance available. Testing for antifungal agents was validated in house by the [facility] ([facility]) [place], [place] Blood Culture Peripheral Blood Specimen: Peripheral Blood Result Value Ref Range Culture Positive on the 2nd day of incubation (A) Culture [place] lipolytica (AA) Results for orders placed or performed during the hospital encounter of 10/28/23 Blood Culture Line, venous Specimen: Line, venous; Blood Result Value Ref Range Culture No Growth Blood Culture Peripheral Blood Specimen: Peripheral Blood Result Value Ref Range Culture Positive on the 1st day of incubation (A) Culture Enterobacter cloacae complex (AA) Culture Enterococcus faecalis (AA) Susceptibility Enterobacter cloacae complex - [place] Ampicillin* Resistant * Intrinsically Resistant Ampicillin/ Sulbactam* Resistant * Intrinsically Resistant Piperacillin/Tazobactam 8 Susceptible ug/mL Ceftazidime <=1 Susceptible ug/mL Ceftriaxone 4 Resistant ug/mL Cefepime <=1 Susceptible ug/mL Meropenem <=0.25 Susceptible ug/mL Gentamicin <=1 Susceptible ug/mL Tobramycin <=1 Susceptible ug/mL Ciprofloxacin <=0.25 Susceptible ug/mL Levofloxacin <=0.12 Susceptible ug/mL Trimethoprim/Sulfamethoxazole >16/304 Resistant ug/mL Enterococcus faecalis - [place] Ampicillin <=2 Susceptible ug/mL Gentamicin Synergy* Susceptible Susceptible ug/mL * No high level gentamicin resistance found - therefore combination therapy with an aminoglycoside may be indicated for serious enterococcal infections such as bacteremia and endocarditis. Vancomycin 2 Susceptible ug/mL Blood Culture Arm, Right Specimen: Arm, Right; Blood Result Value Ref Range Culture No Growth Results for orders placed or performed during the hospital encounter of 10/23/23 Blood Culture Peripheral Blood Specimen: Peripheral Blood Result Value Ref Range Culture Positive on the 1st day of incubation (A) Culture Klebsiella pneumoniae ESBL (AA) Susceptibility Klebsiella pneumoniae ESBL - [place]* Ampicillin* Resistant * Intrinsically Resistant Piperacillin/Tazobactam <=4 Susceptible ug/mL Ceftazidime Resistant Ceftriaxone Resistant Cefepime Resistant Meropenem* <=0.25 Susceptible ug/mL * Enterobacterales that are susceptible to meropenem are usually susceptible to ertapenem. Gentamicin >=16 Resistant ug/mL Tobramycin 8 Intermediate ug/mL Ciprofloxacin 1 Resistant ug/mL Levofloxacin 1 Intermediate ug/mL Trimethoprim/Sulfamethoxazole <=1/19 Susceptible ug/mL * ESBL (extended spectrum beta lactamase) producing organisms require contact precautions. Blood Culture Peripheral Blood Specimen: Peripheral Blood Result Value Ref Range Culture Positive on the 1st day of incubation (A) Culture Klebsiella pneumoniae (AA) Results for orders placed or performed during the hospital encounter of 06/03/23 Blood Culture Line, venous Specimen: Line, venous; Blood Result Value Ref Range Culture No Growth Results for orders placed or performed during the hospital encounter of 05/04/23 Blood Culture Arm, Right Specimen: Arm, Right; Blood Result Value Ref Range Culture No Growth Blood Culture Arm, Left Specimen: Arm, Left; Blood Result Value Ref Range Culture No Growth Blood Culture Hand, Left Specimen: Hand, Left; Blood Result Value Ref Range Culture No Growth Blood Culture Hand, Left Specimen: Hand, Left; Blood Result Value Ref Range Culture No Growth Blood Culture Peripheral Blood Specimen: Peripheral Blood Result Value Ref Range Culture Positive on the 1st day of incubation (A) Culture Streptococcus anginosus (AA) Culture Staphylococcus aureus (AA) Culture Staphylococcus hominis (AA) Culture Streptococcus mitis (AA) Susceptibility Staphylococcus aureus - [place] Oxacillin* 0.5 Susceptible ug/mL * Oxacillin susceptible isolates are susceptible to cephalosporins (example: cefazolin and cephalexin) and beta lactam combination agents. Oxacillin resistant isolates are resistant to these agents. Gentamicin <=0.5 Susceptible ug/mL Erythromycin <=0.25 Susceptible ug/mL Clindamycin <=0.25 Susceptible ug/mL Vancomycin <=0.5 Susceptible ug/mL Tetracycline <=1 Susceptible ug/mL Trimethoprim/Sulfamethoxazole <=0.5/9.5 Susceptible ug/mL Staphylococcus hominis - [place]* Oxacillin* Resistant * Oxacillin susceptible isolates are susceptible to cephalosporins (example: cefazolin and cephalexin) and beta lactam combination agents. Oxacillin resistant isolates are resistant to these agents. Gentamicin <=0.5 Susceptible ug/mL Ciprofloxacin <=0.5 Susceptible ug/mL Levofloxacin <=0.12 Susceptible ug/mL Erythromycin <=0.25 Susceptible ug/mL Clindamycin <=0.25 Susceptible ug/mL Vancomycin <=0.5 Susceptible ug/mL Tetracycline >=16 Resistant ug/mL * Antibiotics listed as No Interpretation have no regulatory guidelines for susceptibility/resistance available. Streptococcus anginosus - [place] Ampicillin <=0.06 Susceptible ug/mL Penicillin <=0.03 Susceptible ug/mL Clindamycin >0.5 Resistant ug/mL Cefotaxime <=0.25 Susceptible ug/mL Ceftriaxone <=0.25 Susceptible ug/mL Vancomycin 1 Susceptible ug/mL Meropenem <=0.06 Susceptible ug/mL Streptococcus mitis - [place] Ampicillin <=0.06 Susceptible ug/mL Penicillin <=0.03 Susceptible ug/mL Clindamycin <=0.06 Susceptible ug/mL Cefotaxime <=0.25 Susceptible ug/mL Ceftriaxone <=0.25 Susceptible ug/mL Vancomycin 0.5 Susceptible ug/mL Meropenem <=0.06 Susceptible ug/mL Blood Culture Peripheral Blood Specimen: Peripheral Blood Result Value Ref Range Culture Positive on the 1st day of incubation (A) Culture Staphylococcus hominis (AA) Culture Streptococcus mitis (AA) Culture Streptococcus anginosus (AA) Results for orders placed or performed during the hospital encounter of 01/04/23 Blood Culture Peripheral Blood Specimen: Peripheral Blood Result Value Ref Range Culture No Growth Blood Culture Peripheral Blood Specimen: Peripheral Blood Result Value Ref Range Culture No Growth Results for orders placed or performed during the hospital encounter of 01/08/22 Blood Culture Arm, Left Specimen: Arm, Left; Blood Result Value Ref Range Culture No Growth Blood Culture Peripheral Blood Specimen: Peripheral Blood Result Value Ref Range Culture No Growth Results for orders placed or performed during the hospital encounter of 08/15/21 Blood Culture Peripheral Blood Specimen: Peripheral Blood Result Value Ref Range Culture No Growth Blood Culture Peripheral Blood Specimen: Peripheral Blood Result Value Ref Range Culture No Growth Results for orders placed or performed during the hospital encounter of 12/23/20 Blood culture Specimen: Blood Left Arm Result Value Ref Range Specimen Description Blood Left Arm Special Requests Received in aerobic bottle only Culture Micro No growth Blood culture Specimen: PICC; Blood PICC Result Value Ref Range Specimen Description Blood PICC Culture Micro No growth Blood culture Specimen: PICC; Blood PICC Result Value Ref Range Specimen Description Blood PICC Culture Micro No growth Blood culture Specimen: Peripheral Blood Left Arm Result Value Ref Range Specimen Description Blood Left Arm Special Requests Received in aerobic bottle only Culture Micro No growth Blood culture Specimen: Blood Right Hand Result Value Ref Range Specimen Description Blood Right Hand Special Requests Received in aerobic bottle only Culture Micro No growth Blood culture Specimen: PICC; Blood PICC Result Value Ref Range Specimen Description Blood PICC Culture Micro (A) Cultured on the 1st day of incubation: Streptococcus salivarius group Culture Micro Critical Value/Significant Value, preliminary result only, called to and read back by Faith Lay RN @ 0212 12/27/20 . Culture Micro (Note) NEGATIVE for the following: Staphylococcus spp., Staph aureus, Staph epidermidis, Staph lugdunensis, Streptococcus spp., Strep pneumoniae, Strep pyogenes, Strep agalactiae, Strep anginosus group, Enterococcus faecalis, Enterococcus faecium, and Listeria spp. by [employer] multiplex nucleic acid test. Final identification and antimicrobial susceptibility testing will be verified by standard methods. Critical Value/Significant Value called to and read back by Faith Lay RN at 0450 12/27/20 hg Susceptibility Streptococcus salivarius group - [place] Ampicillin 0.25 Susceptible ug/mL Penicillin 0.12 Susceptible ug/mL Vancomycin 0.5 Susceptible ug/mL Cefotaxime <=0.25 Susceptible ug/mL Ceftriaxone <=0.25 Susceptible ug/mL Clindamycin >0.5 Resistant ug/mL Meropenem <=0.06 Susceptible ug/mL Blood culture ONE site Specimen: Blood PICC Result Value Ref Range Specimen Description Blood PICC Culture Micro No growth Blood culture ONE site Specimen: Blood Right Hand Result Value Ref Range Specimen Description Blood Right Hand Culture Micro No growth Results for orders placed or performed during the hospital encounter of 02/29/20 Blood culture Specimen: Blood Result Value Ref Range Specimen Description Blood Special Requests Right Arm Culture Micro No growth Blood culture Specimen: Blood Result Value Ref Range Specimen Description Blood Special Requests Right Arm Culture Micro No growth Results for orders placed or performed during the hospital encounter of 08/01/19 Blood culture Specimen: Blood Right Hand Result Value Ref Range Specimen Description Blood Right Hand Special Requests Received in aerobic bottle only Culture Micro No growth Blood culture Specimen: Blood White port Result Value Ref Range Specimen Description Blood White port Special Requests Aerobic and anaerobic bottles received Culture Micro No growth Results for orders placed or performed during the hospital encounter of 05/02/19 Blood culture Specimen: Blood Left Hand Result Value Ref Range Specimen Description Blood Left Hand Special Requests Received in aerobic bottle only Culture Micro No growth Results for orders placed or performed during the hospital encounter of 07/19/17 Blood culture Specimen: Blood Left Arm Result Value Ref Range Specimen Description Blood Left Arm Special Requests Aerobic and anaerobic bottles received Culture Micro No growth Blood culture Specimen: Blood Left Hand Result Value Ref Range Specimen Description Blood Left Hand Special Requests Aerobic and anaerobic bottles received Culture Micro (A) Cultured on the 2nd day of incubation: Corynebacterium species Culture Micro Critical Value/Significant Value, preliminary result only, called to and read back by Li Hodges RN, ROSY. 07/22/17 @0904. [facility] Culture Micro (Note) NEGATIVE for the following: Staphylococcus spp., Staph aureus, Staph epidermidis, Staph lugdunensis, Streptococcus spp., Strep pneumoniae, Strep pyogenes, Strep agalactiae, Strep anginosus group, Enterococcus faecalis, Enterococcus faecium, and Listeria spp. by [employer] multiplex nucleic acid test. Final identification and antimicrobial susceptibility testing will be verified by standard methods. Susceptibility Corynebacterium species - E-TEST Ceftriaxone 6.0 Resistant ug/mL Clindamycin 0.50 Susceptible ug/mL Levofloxacin* 0.75 No interpretation available ug/mL * MICs (minimum inhibitory concentrations) of antibiotics which include No Interpretation means there are no national regulatory guidelines for interpretation available. MICs with a greater than sign (>) should be considered resistant for safety reasons. Further advice can be sought from [facility],Pharm Ds, and Infectious Diseases consultants. Penicillin 0.38 Intermediate ug/mL Vancomycin 0.25 Susceptible ug/mL Trimethoprim/Sulfamethoxazole 0.003 Susceptible ug/mL Meropenem 3.0 Resistant ug/mL Results for orders placed or performed during the hospital encounter of 07/27/16 Blood culture Specimen: Blood Result Value Ref Range Specimen Description Blood Left Hand Special Requests Aerobic and anaerobic bottles received Culture Micro No growth Micro Report Status FINAL 08/04/2016 Blood culture Specimen: Blood Result Value Ref Range Specimen Description Blood Left Hand Culture Micro No growth Micro Report Status FINAL 08/04/2016 Results for orders placed or performed during the hospital encounter of 09/21/15 Blood culture ONE site Specimen: Blood Result Value Ref Range Specimen Description Blood Unspecified Site Culture Micro No growth Micro Report Status FINAL 09/27/2015 Results for orders placed or performed during the hospital encounter of 03/20/14 Blood culture Specimen: Blood Result Value Ref Range Specimen Description Blood Right Arm Special Requests Aerobic and anaerobic bottles received Culture Micro No growth Micro Report Status FINAL 03/26/2014 Blood culture Specimen: Arm, Left; Blood Result Value Ref Range Specimen Description Blood Left Arm Special Requests Aerobic and anaerobic bottles received Culture Micro No growth Micro Report Status FINAL 03/26/2014 Results for orders placed or performed during the hospital encounter of 01/21/14 Blood culture Specimen: Blood Result Value Ref Range Specimen Description Blood Right Hand Special Requests Aerobic and anaerobic bottles received Culture Micro No growth Micro Report Status FINAL 01/27/2014 Blood culture Specimen: PICC; Blood Result Value Ref Range Specimen Description Blood PICC Special Requests Aerobic and anaerobic bottles received Culture Micro No growth Micro Report Status FINAL 01/27/2014 Results for orders placed or performed during the hospital encounter of 01/19/14 Blood culture ONE site Specimen: PICC; Blood Result Value Ref Range Specimen Description Blood PICC Culture Micro (A) Cultured on the 2nd day of incubation: Staphylococcus epidermidis Critical Value, preliminary result only, called to and read back by Mary Pozo RN 01/21/14 @0014 AV Micro Report Status FINAL 01/23/2014 Susceptibility Cultured on the 2nd day of incubation: staphylococcus epidermidis ([place]) - (no method available) Ciprofloxacin <=0.5 Susceptible ug/mL Clindamycin >=8 Resistant ug/mL Erythromycin >=8 Resistant ug/mL Gentamicin <=0.5 Susceptible ug/mL Levofloxacin <=0.12 Susceptible ug/mL Oxacillin >=4 Resistant ug/mL Penicillin >=0.5 Resistant ug/mL Tetracycline 2 Susceptible ug/mL Vancomycin 2 Susceptible ug/mL Trimethoprim/Sulfamethoxazole Value in next row ug/mL <=0.5/9.5 Susceptible *Note: Due to a large number of results and/or encounters for the requested time period, some results have not been displayed. A complete set of results can be found in Results Review. Urine culture: Results for orders placed or performed during the hospital encounter of 01/08/24 Urine Culture Specimen: Urine, Midstream Result Value Ref Range Culture <10,000 CFU/mL Mixture of Urogenital Loan Results for orders placed or performed during the hospital encounter of 11/23/23 Urine Culture Specimen: Urine, Clean Catch Result Value Ref Range Culture <10,000 CFU/mL Mixture of Urogenital Loan Results for orders placed or performed during the hospital encounter of 11/10/23 Urine Culture Specimen: Urine, Clean Catch Result Value Ref Range Culture <10,000 CFU/mL Urogenital loan Results for orders placed or performed during the hospital encounter of 11/09/23 Urine Culture Specimen: Urine, Clean Catch Result Value Ref Range Culture No Growth Results for orders placed or performed during the hospital encounter of 10/28/23 Urine Culture Specimen: Urine, Clean Catch Result Value Ref Range Culture <10,000 CFU/mL Urogenital loan Urine Culture Specimen: Urine, Midstream Result Value Ref Range Culture <10,000 CFU/mL Urogenital loan Results for orders placed or performed during the hospital encounter of 10/23/23 Urine Culture Specimen: Urine, Midstream Result Value Ref Range Culture No Growth Results for orders placed or performed during the hospital encounter of 09/04/23 Urine Culture Specimen: Urine, Midstream Result Value Ref Range Culture 50,000-100,000 CFU/mL Mixture of urogenital loan Results for orders placed or performed during the hospital encounter of 06/18/23 Urine Culture Specimen: Urine, Midstream Result Value Ref Range Culture >100,000 CFU/mL Mixture of urogenital loan Results for orders placed or performed during the hospital encounter of 01/04/23 Urine Culture Specimen: Urine, Clean Catch Result Value Ref Range Culture 50,000-100,000 CFU/mL Mixture of urogenital loan Results for orders placed or performed during the hospital encounter of 04/17/21 Urine Culture Aerobic Bacterial Specimen: Midstream Urine Result Value Ref Range Specimen Description Midstream Urine Special Requests Specimen received in preservative Culture Micro 50,000 to 100,000 colonies/mL mixed urogenital loan Susceptibility testing not routinely done Results for orders placed or performed during the hospital encounter of 08/01/19 Urine Culture Aerobic Bacterial Specimen: Midstream Urine Result Value Ref Range Specimen Description Midstream Urine Special Requests Specimen received in preservative Culture Micro No growth Results for orders placed or performed during the hospital encounter of 07/27/16 Urine Culture Aerobic Bacterial Specimen: Urine Result Value Ref Range Specimen Description Midstream Urine Special Requests Specimen received in preservative Culture Micro 50,000 to 100,000 colonies/mL mixed urogenital loan Micro Report Status FINAL 07/28/2016 Results for orders placed or performed during the hospital encounter of 12/09/15 Urine Culture Aerobic Bacterial Result Value Ref Range Specimen Description Midstream Urine Special Requests Specimen received in preservative Culture Micro No growth Micro Report Status FINAL 12/10/2015 Results for orders placed or performed during the hospital encounter of 03/26/14 Urine culture Result Value Ref Range Specimen Description Midstream Urine Special Requests Specimen received in preservative Culture Micro (A) 50,000 to 100,000 colonies/mL Beta hemolytic Streptococcus group B Group B Streptococcus may be significant in OB patients, however, it is part of the normal urogenital loan. Group B Streptococci are susceptible to ampicillin, penicillin, and cefazolin, but may be erythromycin and/or clindamycin resistant. Contact Microbiology if your patient is allergic to penicillin and you need erythromycin and/or clindamycin testing to be performed. Clindamycin and Erythromycin are not routinely prescribed for isolates from the urinary tract. Susceptibility testing must be requested within 5 days. 50,000 to 100,000 colonies/mL Mixed gram negative and positive loan Multiple species present, probable perineal contamination. Micro Report Status FINAL 03/29/2014 Results for orders placed or performed during the hospital encounter of 03/20/14 Urine culture Result Value Ref Range Specimen Description Midstream Urine Special Requests Specimen received in preservative Culture Micro 10,000 to 50,000 colonies/mL Mixed gram positive and gram negative bacteria present. Multiple species present, probable perineal contamination. Micro Report Status FINAL 03/22/2014 Results for orders placed or performed during the hospital encounter of 01/21/14 Urine culture Specimen: Urine clean catch Result Value Ref Range Specimen Description Midstream Urine Special Requests Specimen received in preservative Culture Micro 50,000 to 100,000 colonies/mL Mixed gram positive loan Multiple species present, probable perineal contamination. Susceptibility testing not routinely done Micro Report Status FINAL 01/23/2014 *Note: Due to a large number of results and/or encounters for the requested time period, some results have not been displayed. A complete set of results can be found in Results Review. * Viviana Villanueva RN - 03/10/2024 8:58 AM CDT Care Management Follow Up Length of Stay (days): 5 Expected Discharge Date: 03/11/2024 Concerns to be Addressed: discharge planning Patient plan of care discussed at interdisciplinary rounds: Yes Anticipated Discharge Disposition: Anticipated Discharge Services: Anticipated Discharge DME: Education Provided on the Discharge Plan: Patient/Family in Agreement with the Plan: no plan yet Additional Information: THONG called Restrictive program THONG Lund to inform that Dr Amato will be on through Wednesday and Wednesday a new doctor will be on. Due to the [facility] restrictive program her assigned MD, Dr Mcclelland of [facility] has to sign a release for the Hospitalist to be able to write orders at discharge. [employer] [facility] ,will call on Wednesday to find out new provider. Maira Villanueva, RN, BSN, CM Inpatient Care Coordination [facility] [phone] * Carlos Vila MD - 03/09/2024 12:37 PM CDT [facility] Medicine Progress Note - Hospitalist Service Date of Admission: 03/05/2024 Primary Care Physician Segundo Mcclelland CONSULTANTS: ID, neurosurgery Assessment & Plan History of Present Illness: Sandi Lopez is a 38 year old female with a complicated past medical history including POTS requiring central access currently with a port in place as of 02/04/24, multiple episodes of bacteremia and line infections of unclear infectious nidus, chronic back pain with previous lumbar discectomyfor herniation, chronic pain syndrome, anxiety, MDD, borderline personality disorder, gastroparesis, nephrolithiasis, iron deficiency anemia, GERD, obesity, and suspected opiate/benzodiazepine dependence who presents with severe back pain. She reports chronic low back pain from previous surgery fordisc herniation. She was seen in the ER on 02/25 and 03/02 for acute on chronic low back pain along with numbness down the left side and reported leg weakness. She had a lumbar MRI that showed L4-L5 opposing endplate edema with associated has been that could be osteomyelitis although felt to be less likely overall based on the imaging. Neurosurgery was contacted recommended following inflammatory markers. Her CRP was high at that time as was ESR she had blood cultures drawn. Peripheral blood culture now positive for strep mitis 1 of 2 culture from 03/02/24 thought to be contaminant per ID. She wastold to come back to the emergency room for further treatment and workup. The pain is now severe inthe low back. She cannot find any comfortable position. She has been taking acetaminophen 4500 mg in a day and oral Dilaudid at home without any improvement. Reports similar paresthesias and weaknessto previous. She has had ongoing issues with nausea and vomiting from her gastroparesis. She felt absolutely terrible throughout the day today and had shaking chills for about 90 minutes this morning. She did not check her temperature, but she was sweaty as well after this. She denies any new dysuria or hematuria. No new cough or shortness of breath. History obtained from patient, medical record, and from CLAIR Cronin in the emergency department. Blood pressure 160/79 then 109/70, tachycardic 113 then 99, temperature 98.9 ??F, oxygen 90% on room air. Potassium low at 3.2 otherwise BMP unremarkable. CRP elevated at 142 as is ESR 37. Lactic acid normal at 1.3. WBC 12.9, drop in hemoglobin to 9.5, platelet count 239. Stool occult blood is negative. Previous lumbar spine shows possible L4-5 osteomyelitis although this could be from degenerative change. She received 2 g IV Ancef, oral Dilaudid 2 mg, 1 L NS, 40 g oral potassium but she could not tolerate this due to vomiting, and a dose of Eliquis. Admit inpatient with ID and neurosurgery consultation. Severe acute on chronic low back pain, possible L4-L5 osteomyelitis, complicated by her Chronic pain syndrome, Strep mitis bacteremia 1 of 2 blood culture 03/02/24 (likely contaminant), possible infected port vs Possible odontogenic source, Hx bacteremia, ESBl, fungemia, severe back pain: Patient with a history of chronic back pain with previous discectomy, no hardware in place. Severely worsening back pain in the past few days despite oral Dilaudid prior to admission. Reporting rigors 03/05/24 and she did have a positive blood culture from the ER on 03/02 for strep mitis 1 of 2. Neurosurgery recommended lumbar MRI which was done on 03/02 that showing opposing endplate edema L4-L5, but no enhancement of the intervertebral disc or abnormal single in the paraspinous tissues so infectionseems less likely based on imaging alone and could represent degenerative Modic type I change per radiology. Per neurosurgery does not think this is osteo. However, given that she had rigors, bacteremia, port in place, self-reported severely worsening pain, and CRP now rising to 142 from 112 few days prior to admission and ESR 37 from 18 infection involving the spine is possible. Also has a new leukocytosis of 12.9. She does have chronic pain and has had numerous short-term prescriptions over the past many months for oral Dilaudid along with exhibiting symptoms and behavior of pain out of prop ortion to what would be suspected from previous spine imaging while here in the hospital. However, if she has acute osteomyelitis then this certainly would result in severe pain in any individual. Anaphylaxis allergy listed NSAID. She reports taking 4500 mg of acetaminophen a day. Seen in the ER 02/10, 02/16x2, 02/25, 03/02 for chest pain and then back pain. Was recently on a medrol dose pack per her primary with some improvement. -Previous bacteremia infections: -April 2023 blood cultures growing Strep anginosus, Staph aureus, Staph hominis, strep mitis -10/23/2023 ESBL Klebsiella pneumoniae cultures positive x 2. Line associated -10/28/2023 Enterobacter [place] complex and Enterococcus faecalis positive cultures -11/09/2023 Anderson like the Lyrica and Anderson dubliniensis blood cultures. Port removed then -01/08/2024 positive culture for Actinomyces odontolyticus, not treated and felt to be contaminant. No line in place then. -03/02/2024 peripheral blood culture positive for strep mitis 1 of 2, per ID likely contaminant -03/05/24 blood culture negative to date 2 of 2 -03/07/24 blood culture negative to date of -03/08/24 blood culture positive Klebsilla (back within 12 hours) -03/09/24 blood culture pending Based on the types of bacteria in the setting of central line placement this does bring up the possibility of insufficient treatment of previous infections, bad teeth, or possible self inoculation. Alternatively, there are multiple oral loan organisms previously growing in her blood and she reports having a cracked right upper molar that intermittently drains some fluid which could be a source for ongoing intermittent bacteremia. She does have a cracked tooth on exam that is not currently actively draining. She has not had the tooth pulled or fixed due to not having dental insurance. On admission was placed on IV Ancef 2 g every 8 hours covering the strep mitis bacteremia, ID saw, and given recurrent cultures negative this is thought to be contaminant so her antibiotics were stopped. Also neurosurgery has seen and is not planning any surgical intervention and have signed off not thinking this represents true osteo. If gets worse they should be called. Given her history, goal from my point of view would be not to do surgery and most certainly should not have any hardware placed. Will need to follow blood cultures, fever curve. Continue on Acetaminophen, Oral Dilaudid, Flexeril/robaxin. Physical therapy to see. She was also placed on a medrol dose pack. If persistent bacteremia then would need to consider port removal, defer to ID. Will need outpatient follow up with oral surgery or dentistry as the source could be her teeth. We do not have oral surgery to comes to [place]. Hopefully blood cultures on follow-up remain negative or also need to consider removing her Port-A-Cath. Sed rate is up to 44 from 37. CRP down to 71 from 143. Venover Drug reaction vs sepsis (Klebsiella) unclear source possible UTI On 03/08, when the patient was given venofer per her port she developed severe nausea, vomiting, andrigors. Her temp went up to over 104. She was treated with solumedrol, ativan (has allergies to zofran/phenergen/reglan/compazine), stopped the iron, given IV fluids, and benadryl and pepcid. She wasgiven tylenol pr and over time she improved. She did develop agitation and confusion related to her medications and required a code 21 called but this improved over time. Her lactic acid on first check was elevated at 3.3. She was given IV fluids and came down to 0.8. Her white blood cell count waschecked as well and is elevated at 24.7 but again this is in the setting of getting steroids. I also checked blood cultures and unfortunately these came back quickly with a gram-negative bacillus showing Klebsiella by verigene and was CTX-m. Patient was placed on meropenum overnight and changed to ertapenem. Previous urine analysis on 03/06 was negative but per report she started having urinary hesitancy a few days ago. At the point per ID, no need to remove her port. Repeat blood culture sent today. Acute nausea, vomiting Patient is limited in what can be used due to her intolerances. Patient was given Ativan during herepisode as above. I also added scopolamine which she still has in place. She also is on a PPI for gastritis. History PEs, chronic anticoagulation: History PEs, most recently November 2023. Chronically on Eliquis 5 mg twice daily which is being held initially in case of need for bone biopsy or procedure in addition to her acutely worsening anemia. Last dose evening 03/05 in the ER. PCD's. Resumed her lifelong DOAC. History of induced pulmonary embolus after delivery. 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 Acute on chronic anemia: Hemoglobin dropping to 7.6 from a baseline of 11-12. She has chronic iron deficiency anemia. She jackie Eliquis, but denies any blood loss. Stool occult blood is negative. Suspect in part related to the acute inflammatory response evidenced by high CRP in the setting of bacteremia possible osteomyelitis. CBC and type and screen in the morning . Resuming Eliquis initially as above. Did get transfused 4.9 and hemoglobin up to 9.4. sees Dr Allyssa Justice. Her last note from 03/01/24 has been reviewed. Patient with chronic anemia since age 13 initially was due to menstral bleedin but has had a hysterectomy. Now gatroparesis and malabsorption is an issue. Patient with a history of getting venofer. Tried to give her Venofer but she had a reaction as above. Not sure if it was a true drug reaction versus sepsis.. Repeat hemoglobin is up to 9 as of 03/09/2024. Hypokalemia: Potassium low at 3.2. Has chronic issues with vomiting. Was not tolerating oral potassium in the ER. Placed on replacement. Potassium up to 4 as of 03/09/2024. Gastroparesis, Nausea, vomiting: Reports history of gastroparesis secondary previous Ozempic use. She has chronic nausea and vomiting. She has allergies listed to Compazine, Zofran, metoclopramide, and Phenergan. This many allergiesto different antinausea medications is extremely unlikely in any 1 person. She has issues with anxiety that she self-reports is severely worse in the hospital and per chart review also has issues with concerns for benzodiazepine abuse in the past. Based on thorough chart review by my partner, we dosuspect the allergies listed are in part a way to receive IV lorazepam for refractory nausea in addition to IV pain medications in the hospital. Malabsorption has been an issue. She has received Ativan while here and I also started her on scopolamine. POTS: Chronic issues with syncope and near syncopal episodes with previous diagnosis of POTS. She says she is post to get IV fluids twice per week and this is why she has had PICC line and ports in the past. Port removed in October 2023 for bacteremia/fungemia. Port replaced 02/04/2024. Seen in the ER 01/18, 01/19, 01/27, 01/28 for syncope. IV fluid boluses as needed while here for symptoms Anxiety MDD Borderline personality disorder Insomnia Drug seeking behavior: These are the diagnoses listed in her previous medical history, unclear if previously diagnosed by a psychiatrist. She has had multiple prescriptions in the past for 1 mg oral lorazepam as needed foranxiety. She informs me that her anxiety has been through the roof when she is hospitalized and will need medication for this. She also takes Ambien 10 mg at night as needed. Resume Ambien, Oral lorazepam as needed for anxiety. Need to watch for drug seeking behavior for benzos/opiates. Also I did let the patient know we are worried about self injurious behavior given her multiple blood cultures with multiple different organisms. Patient denies self injecting or trying to harm herself at this point. Patient has a pain contract with her primary care provider Dr. Mcclelland Obesity: BMI 40.35 as of 03/07/2024, complicates cares History nephrolithiasis Could contribute to back pain however her MRI did show some findings in the lumbar spine area. Could consider always go looking for kidney stone as a cause of her pain if her pain should change. DVT Prophylaxis: Pneumatic Compression Devices Code Status: Full Code FEN: Regular diet Lines: Right chest port Discharge Dispo: TBD. May need weeks of IV antibiotics. Estimated Disch Date / # of Days until Disch: Admit inpatient for bacteremia and potential lumbar osteomyelitis. Anticipate multiple day hospitalization. Patient could be here for days that she is requiring IV antibiotics for Klebsiella found on blood cultures. Clinically Significant Risk Factors Present on Admission # Hypokalemia: Lowest K = 3.2 mmol/L in last 2 days, will replace as needed # Drug Induced Coagulation Defect: home medication list includes an anticoagulant medication # Obesity: Estimated body mass index is 31.47 kg/m?? as calculated from the following: Height as of this encounter: 1.676 m (5' 6). Weight as of this encounter: 88.5 kg (195 lb). # Financial/Environmental Concerns: has not sought the care of a dentist due to cost and lack of insurance coverage Discussed plan of care with nursing, social work, case management, and vascular's disease notes reviewed once again RESTRAINTS: not indicated Code Status: Full Code Follow up plan: Needs to see oral surgery vs dentist as outpatient for dental extraction This document was created using voice recognition technology. Please excuse any typographical errors that may have occurred. Please call with any questions. Disposition Plan Expected Discharge Date: 03/11/2024 Destination: home;home with family;home with help/services Discharge Comments: Home patient is getting need to plan for ongoing IV antibiotics. Not sure if this can be done at home. Pain will also be a contributing factor to keeping her in the hospital. Barrier to discharge: Improved pain, plan for ongoing antibiotics. . Carlos Vila MD Hospitalist Service [facility] Securely message with [employer] (more info) Text page via [facility] Paging/Directory Interval History Patient had a rough day yesterday afternoon. I was with her bedside for couple hours when she had areaction to her Venofer drip versus having sepsis. She improved but developed confusion that required security be called. Overnight she actually improved and now is back to her baseline this morning.She is apologetic. Does not remember a lot of what had transpired yesterday afternoon. She is having back pain and does remember having severe shakes that she thinks made her pain worse. Cultures came back overnight quickly with Klebsiella. Is on IV antibiotics. Denies any current chills, fever, sweats. ROS: A comprehensive review of systems was negative except for items noted in the HPI. Patient currently denies any fever, chills, sweats, nausea, vomiting, diarrhea, shortness of breath, or chest pain. Physical Exam Vital Signs: Temp: 97.2 ??F (36.2 ??C) Temp src: Temporal BP: 116/78 Pulse: 106 Resp: 18 SpO2: 99 %O2 Device: None (Room air) Oxygen Delivery: 2 LPM Weight: 250 lbs .03 oz Exam is stable from yesterday, looks better than yesterday afternoon by a long shot General appearance: Patient is alert and oriented x3, is in minimal distress and appears uncomfortable, pleasant and conversing normally, speaking in full sentences, appears stated age, sitting up inbed, looks a lot less ill than she did yesterday afternoon HEENT: Mucous membranes are moist RESPIRATORY: Clear to auscultation bilateral, good air movement CARDIOVASCULAR: Regular rate and rhythm, no murmurs Chest: Right Port-A-Cath in place without any evidence of tenderness, erythema, or drainage GASTROINTESTINAL: obese, Non-distended, non-tender, soft, bowel sounds present throughout, NEUROLOGIC: Cranial nerves II-XII intact, without any focal deficits EXTREMITIES: Moves all extremities, no clubbing, cyanosis, nor edema : Garcia not present Data I have personally reviewed the following data over the past 24 hrs: 24.7 (H) \ 9.0 (L) / 223 140 103 7.0 / 94 4.0 27 0.54 \ Procal: N/A CRP: N/A Lactic Acid: 1.0 Imaging: Results for orders placed or performed during the hospital encounter of 03/02/24 MR Lumbar Spine w/o & w Contrast Narrative EXAM: MR LUMBAR SPINE W/O and W CONTRAST LOCATION: [facility] DATE: 03/02/2024 INDICATION: low back pain and patient reporting saddle anesthesia COMPARISON: Plain radiographs 12/19/2023. CONTRAST: 9ML LEONARDA TECHNIQUE: Routine Lumbar Spine MRI without and with IV contrast. FINDINGS: Nomenclature is based on 5 lumbar type vertebral bodies. Normal vertebral body heights and alignment. Mixed Modic type I and type II changes with associated contrast enhancement at the opposing L4-B0rgrbyargq. No abnormal contrast enhancement in the intervertebral disc. Normal distal spinal cord and cauda equina with conus medullaris at T12-L1. Noextraspinal abnormality. Unremarkable visualized bony pelvis. T12-L1: Normal [...] No spinal canal or neural foraminal stenosis. Impression IMPRESSION: 1. Multilevel lumbar spondylosis without high-grade [...] suspicion for discitis osteomyelitis, recommend follow-up imaging. *Note: Due to a large number of results and/or encounters for the requested time period, some results have not been displayed. A complete set of results can be found in Results Review. Procedures: none I have personally have reviewed the patient's most up to date labs, orders, and medications myself * June Jones MD - 03/09/2024 10:35 AM CDT [facility] Infectious Disease Progress Note Date of Service (when I saw the patient): 03/09/2024 Assessment & Plan Sandi Lopez is a 38 year old who was admitted on 03/05/2024. 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, loss of > 100 lbs, hx of DVT/PE, severe anxiety, anemia, thrombocytosis, chronic pain, obesity admitted with positive blood culture johny 1/2 for strep oralis/ mitis 2nd blood culture is still negative fr strep mitis Repeat blood cultures are pending Back pain: MRI no discitis/ osteo Imaging less suspicious for osteomyelitis So far only 1/2 positive cultures for strep mitis a contaminant New in the hospital fevers yesterday and now positive blood cultures with gram- negative jamaal furtheridentified as Klebsiella ESBL organism Of note all prior cultures are negative multiple done on the , and and 07 March Now on meropenem Recommendations: Patient reports new urinary hesitancy that started 2 days ago followed by high fevers seen yesterday and now positive blood cultures for Klebsiella Check UA and UC Switch to ertapenem for the ESBL kleb in the blood cultures Follow repeat cultures Can ignore the 1/2 positive blood cultures fr strep mitis as contaminant Port is okay to stay so far Recommend IR guided biopsy of Lumbar spine to confirm the diagnosis of osteo June Jones MD Interval History New fever yesterday Tolerating antibiotics ok No new rashes or issues with antibiotics Labs reviewed No changes to past medical, social or family history New positive blood culture now with klebsiella Physical Exam Temp: 97.2 ??F (36.2 ??C) Temp src: Temporal BP: 116/78 Pulse: 106 Resp: 18 SpO2: 99 % O2 Device: None (Room air) Oxygen Delivery: 2 LPM Vitals: 03/05/243 03/06/24 1938 03/07/24 1121 Weight: 88.5 kg (195 lb) 107.9 kg (237 lb 14 oz) 113.4 kg (250 lb) Vital Signs with Ranges Temp: [97.2 ??F (36.2 ??C)-104.7 ??F (40.4 ??C)] 97.2 ??F (36.2 ??C) Pulse: [97-152] 106 Resp: [18-23] 18 BP: (95-135)/(33-98) 116/78 SpO2: [86 %-99 %] 99 % Constitutional: Awake, alert, cooperative, no apparent distress Lungs: Clear to auscultation bilaterally, no crackles or wheezing Cardiovascular: Regular rate and rhythm, normal S1 and S2, and no murmur noted Abdomen: Normal bowel sounds, soft, non-distended, non-tender Skin: No rashes, no cyanosis, no edema Other: Medications Current Facility-Administered Medications Medication Dose Route Frequency Provider Last Rate Last Admin lactated ringers infusion Intravenous Continuous Carlos Vila MD 125 mL/hr at 03/09/24623New Bag at 03/09/24623 Current Facility-Administered Medications Medication Dose Route Frequency Provider Last Rate Last Admin apixaban ANTICOAGULANT (ELIQUIS) tablet 5 mg 5 mg Oral BID Carlos Vila MD 5 mg at 759 childrens multivitamin with iron (FLINTSTONES COMPLETE) chewable tablet 1 tablet 1 tablet Oral Daily Carlos Vila MD 1 tablet at 03/09/24 0759 folic acid (FOLVITE) tablet 1 mg 1 mg Oral Daily Ady Thurston MD 1 mg at 03/09/24 0759 gabapentin (NEURONTIN) capsule 800 mg 800 mg Oral TID Ady Thurston MD 800 mg at 03/09/24 0758 heparin 100 unit/mL injection 5-10 mL 5-10 mL Intracatheter Q28 Days Carlos Vila MD heparin lock flush 10 UNIT/ML injection 5-10 mL 5-10 mL Intracatheter Q24H Carlos Vila MD 5 mL at 03/08/24 0956 Lidocaine (LIDOCARE) 4 % Patch 1 patch 1 patch Transdermal Q24H Ady Thurston MD 1 patch at 03/09/24 0759 meropenem (MERREM) 2 g in sodium chloride 0.9 % 100 mL intermittent infusion 2 g Intravenous Q8H Sam Jain DO 200 mL/hr at 03/09/24 0545 2 g at 03/09/24 0545 methocarbamol (ROBAXIN) tablet 500 mg 500 mg Oral 4x Daily Carlos Vila MD 500 mg at 03/09/24 0759 methylPREDNISolone (MEDROL) tablet 8 mg 8 mg Oral At Bedtime Carlos Vila MD 8 mg at 03/08/24 2150 And methylPREDNISolone (MEDROL) tablet 4 mg 4 mg Oral QAM AC Carlos Vila MD 4 mg at 03/09/24 0758 And methylPREDNISolone (MEDROL) tablet 4 mg 4 mg Oral Daily with lunch Carlos Vila MD And methylPREDNISolone (MEDROL) tablet 4 mg 4 mg Oral Daily with supper Carlos Vila MD And [START ON 03/10/2024] methylPREDNISolone (MEDROL) tablet 4 mg 4 mg Oral At Bedtime Sea Vila MD pantoprazole (PROTONIX) IV push injection 40 mg 40 mg Intravenous Daily Carlos Vila MD 40 mg at 03/09/24 0759 scopolamine (TRANSDERM) 72 hr patch 1 patch 1 patch Transdermal Q72H Carlos Vila MD 1 patch at 03/08/24 1459 And scopolamine (TRANSDERM-SCOP) Patch in Place Transdermal Q8H Carlos Vila MD sodium chloride (PF) 0.9% PF flush 10-20 mL 10-20 mL Intracatheter Q28 Days Carlos Vila MD10 mL at 03/08/24 0956 sodium chloride (PF) 0.9% PF flush 3 mL 3 mL Intracatheter Q8H Ady Thurston MD 3 mL at 03/09/24 0804 Data All microbiology laboratory data reviewed. Recent Labs Lab Test 03/09/24 0618 03/08/24 1402 03/06/24 2224 03/06/24 1649 WBC 24.7* 19.5* -- 10.8 HGB 9.0* 10.0* 9.4* 7.6* HCT 27.8* 30.2* -- 23.0* MCV 91 89 -- 89 PLT 223 210 -- 317 Recent Labs Lab Test 03/09/24 0618 03/06/24 1649 03/05/24 2148 CR 0.54 0.73 0.63 Recent Labs Lab Test 03/07/24 1049 SED 44* Recent Labs Lab Test 04/17/21 0529 12/28/20 1026 12/28/20 0630 12/27/20 0723 12/27/20 0615 12/26/20 1205 12/26/20 1158 12/24/20 2230 12/24/20 0131 CULT 50,000 to 100,000 colonies/mL mixed urogenital loan Susceptibility testing not routinely done No growth No growth No growth No growth No growth Cultured on the 1st day of incubation: Streptococcus salivarius group * Critical Value/Significant Value, preliminary result only, called to and read back by Faith Lay RN @ 0212 12/27/20 . (Note) NEGATIVE for the following: Staphylococcus spp., Staph aureus, Staph epidermidis, Staph lugdunensis, Streptococcus spp., Strep pneumoniae, Strep pyogenes, Strep agalactiae, Strep anginosus group, Enterococcus faecalis, Enterococcus faecium, and Listeria spp. by [employer] multiplex nucleic acid test. Final identification and antimicrobial susceptibility testing will be verified by standard methods. Critical Value/Significant Value called to and read back by Faith Lay RN at 0450 12/27/20 hg No growth No growth All cultures: Recent Labs Lab 03/08/24 1419 03/07/24 1049 03/06/24 2344 03/05/24 2221 03/05/24 2148 03/02/24 2110 03/02/24 2042 CULTURE Positive on the 1st day of incubation* Gram negative bacilli* No growth after 1 day No growth after 2 days No growth after 3 days No growth after 3 days Positive on the 1st day of incubation* Streptococcus mitis/oralis* No Growth Blood culture: Results for orders placed or performed during the hospital encounter of 03/05/24 Blood Culture Hand, Left Specimen: Hand, Left; Blood Result Value Ref Range Culture Positive on the 1st day of incubation (A) Culture Gram negative bacilli (AA) Blood Culture Arm, Left Specimen: Arm, Left; Blood Result Value Ref Range Culture No growth after 1 day Blood Culture Arm, Right Specimen: Arm, Right; Blood Result Value Ref Range Culture No growth after 2 days Blood Culture Arm, Right Specimen: Arm, Right; Blood Result Value Ref Range Culture No growth after 3 days Blood Culture Arm, Right Specimen: Arm, Right; Blood Result Value Ref Range Culture No growth after 3 days Results for orders placed or performed during the hospital encounter of 03/02/24 Blood Culture Arm, Left Specimen: Arm, Left; Blood Result Value Ref Range Culture Positive on the 1st day of incubation (A) Culture Streptococcus mitis/oralis (AA) Susceptibility Streptococcus mitis/oralis - [place] Ampicillin <=0.06 Susceptible ug/mL Penicillin 0.12 Susceptible ug/mL Clindamycin <=0.06 Susceptible ug/mL Cefotaxime <=0.25 Susceptible ug/mL Ceftriaxone <=0.25 Susceptible ug/mL Vancomycin 0.5 Susceptible ug/mL Meropenem <=0.06 Susceptible ug/mL Blood Culture Arm, Right Specimen: Arm, Right; Blood Result Value Ref Range Culture No Growth Results for orders placed or performed during the hospital encounter of 01/09/24 Blood Culture Peripheral Blood Specimen: Peripheral Blood Result Value Ref Range Culture No Growth Blood Culture Peripheral Blood Specimen: Peripheral Blood Result Value Ref Range Culture No Growth Results for orders placed or performed during the hospital encounter of 01/08/24 Blood Culture Peripheral Blood Specimen: Peripheral Blood Result Value Ref Range Culture Positive on the 2nd day of incubation (A) Culture Lactobacillus species (AA) Culture Actinomyces odontolyticus (AA) Susceptibility [place] (Actinomyces) odontolytica - [place] Penicillin 0.094 Susceptible ug/mL Amoxicillin/Clavulanate 0.19 Susceptible ug/mL Ceftriaxone 0.75 Susceptible ug/mL Clindamycin 0.50 Susceptible ug/mL Meropenem 0.25 Susceptible ug/mL metronidazole 16 Intermediate ug/mL Lactobacillus species - [place]* Ampicillin 0.064 Susceptible ug/mL Penicillin 0.064 Susceptible ug/mL Clindamycin 0.125 Susceptible ug/mL Gentamicin <=0.064 No interpretation available ug/mL Levofloxacin >32 No interpretation available ug/mL Vancomycin >256 Resistant ug/mL * Antibiotics listed as No Interpretation have no regulatory guidelines for susceptibility/resistance available. Blood Culture Peripheral Blood Specimen: Peripheral Blood Result Value Ref Range Culture No Growth Results for orders placed or performed during the hospital encounter of 11/23/23 Blood Culture Peripheral Blood Specimen: Peripheral Blood Result Value Ref Range Culture No Growth Blood Culture Peripheral Blood Specimen: Peripheral Blood Result Value Ref Range Culture No Growth Results for orders placed or performed during the hospital encounter of 11/10/23 Blood Culture Arm, Left Specimen: Arm, Left; Blood Result Value Ref Range Culture No Growth Blood Culture Wrist, Left Specimen: Wrist, Left; Blood Result Value Ref Range Culture No Growth Blood Culture Hand, Left Specimen: Hand, Left; Blood Result Value Ref Range Culture No Growth Blood Culture Hand, Right Specimen: Hand, Right; Blood Result Value Ref Range Culture No Growth Blood Culture Hand, Left Specimen: Hand, Left; Blood Result Value Ref Range Culture No Growth Blood Culture Hand, Left Specimen: Hand, Left; Blood Result Value Ref Range Culture No Growth Blood Culture Peripheral Blood Specimen: Peripheral Blood Result Value Ref Range Culture Positive on the 2nd day of incubation (A) Culture Bacillus species, not anthracis nor cereus group (AA) Culture [place] dubliniensis (AA) Culture [place] lipolytica (AA) Susceptibility Bacillus species, not anthracis nor cereus group - [place] Ampicillin 0.094 Susceptible ug/mL Penicillin 0.064 Susceptible ug/mL Ciprofloxacin 0.094 Susceptible ug/mL Clindamycin 4 Resistant ug/mL Gentamicin 0.064 Susceptible ug/mL Levofloxacin 0.094 Susceptible ug/mL Vancomycin 0.75 Susceptible ug/mL [place] dubliniensis - [place]* Amphotericin B 0.5 No interpretation available ug/mL Micafungin 0.06 No interpretation available ug/mL Fluconazole 0.5 No interpretation available ug/mL Voriconazole <=0.008 No interpretation available ug/mL * Antibiotics listed as No Interpretation have no regulatory guidelines for susceptibility/resistance available. Testing for antifungal agents was validated in house by the [facility] ([facility]) [place], [place] Blood Culture Peripheral Blood Specimen: Peripheral Blood Result Value Ref Range Culture Positive on the 2nd day of incubation (A) Culture [place] lipolytica (AA) Results for orders placed or performed during the hospital encounter of 11/09/23 Blood Culture Peripheral Blood Specimen: Peripheral Blood Result Value Ref Range Culture Positive on the 2nd day of incubation (A) Culture [place] lipolytica (AA) Susceptibility [place] lipolytica - [place]* Amphotericin B 2.0 No interpretation available ug/mL Micafungin 0.5 No interpretation available ug/mL Fluconazole 4.0 No interpretation available ug/mL Voriconazole 0.06 No interpretation available ug/mL * Antibiotics listed as No Interpretation have no regulatory guidelines for susceptibility/resistance available. Testing for antifungal agents was validated in house by the [facility] ([facility]) [place], [place] Blood Culture Peripheral Blood Specimen: Peripheral Blood Result Value Ref Range Culture Positive on the 2nd day of incubation (A) Culture [place] lipolytica (AA) Results for orders placed or performed during the hospital encounter of 10/28/23 Blood Culture Line, venous Specimen: Line, venous; Blood Result Value Ref Range Culture No Growth Blood Culture Peripheral Blood Specimen: Peripheral Blood Result Value Ref Range Culture Positive on the 1st day of incubation (A) Culture Enterobacter cloacae complex (AA) Culture Enterococcus faecalis (AA) Susceptibility Enterobacter cloacae complex - [place] Ampicillin* Resistant * Intrinsically Resistant Ampicillin/ Sulbactam* Resistant * Intrinsically Resistant Piperacillin/Tazobactam 8 Susceptible ug/mL Ceftazidime <=1 Susceptible ug/mL Ceftriaxone 4 Resistant ug/mL Cefepime <=1 Susceptible ug/mL Meropenem <=0.25 Susceptible ug/mL Gentamicin <=1 Susceptible ug/mL Tobramycin <=1 Susceptible ug/mL Ciprofloxacin <=0.25 Susceptible ug/mL Levofloxacin <=0.12 Susceptible ug/mL Trimethoprim/Sulfamethoxazole >16/304 Resistant ug/mL Enterococcus faecalis - [place] Ampicillin <=2 Susceptible ug/mL Gentamicin Synergy* Susceptible Susceptible ug/mL * No high level gentamicin resistance found - therefore combination therapy with an aminoglycoside may be indicated for serious enterococcal infections such as bacteremia and endocarditis. Vancomycin 2 Susceptible ug/mL Blood Culture Arm, Right Specimen: Arm, Right; Blood Result Value Ref Range Culture No Growth Results for orders placed or performed during the hospital encounter of 10/23/23 Blood Culture Peripheral Blood Specimen: Peripheral Blood Result Value Ref Range Culture Positive on the 1st day of incubation (A) Culture Klebsiella pneumoniae ESBL (AA) Susceptibility Klebsiella pneumoniae ESBL - [place]* Ampicillin* Resistant * Intrinsically Resistant Piperacillin/Tazobactam <=4 Susceptible ug/mL Ceftazidime Resistant Ceftriaxone Resistant Cefepime Resistant Meropenem* <=0.25 Susceptible ug/mL * Enterobacterales that are susceptible to meropenem are usually susceptible to ertapenem. Gentamicin >=16 Resistant ug/mL Tobramycin 8 Intermediate ug/mL Ciprofloxacin 1 Resistant ug/mL Levofloxacin 1 Intermediate ug/mL Trimethoprim/Sulfamethoxazole <=1/19 Susceptible ug/mL * ESBL (extended spectrum beta lactamase) producing organisms require contact precautions. Blood Culture Peripheral Blood Specimen: Peripheral Blood Result Value Ref Range Culture Positive on the 1st day of incubation (A) Culture Klebsiella pneumoniae (AA) Results for orders placed or performed during the hospital encounter of 06/03/23 Blood Culture Line, venous Specimen: Line, venous; Blood Result Value Ref Range Culture No Growth Results for orders placed or performed during the hospital encounter of 05/04/23 Blood Culture Arm, Right Specimen: Arm, Right; Blood Result Value Ref Range Culture No Growth Blood Culture Arm, Left Specimen: Arm, Left; Blood Result Value Ref Range Culture No Growth Blood Culture Hand, Left Specimen: Hand, Left; Blood Result Value Ref Range Culture No Growth Blood Culture Hand, Left Specimen: Hand, Left; Blood Result Value Ref Range Culture No Growth Blood Culture Peripheral Blood Specimen: Peripheral Blood Result Value Ref Range Culture Positive on the 1st day of incubation (A) Culture Streptococcus anginosus (AA) Culture Staphylococcus aureus (AA) Culture Staphylococcus hominis (AA) Culture Streptococcus mitis (AA) Susceptibility Staphylococcus aureus - [place] Oxacillin* 0.5 Susceptible ug/mL * Oxacillin susceptible isolates are susceptible to cephalosporins (example: cefazolin and cephalexin) and beta lactam combination agents. Oxacillin resistant isolates are resistant to these agents. Gentamicin <=0.5 Susceptible ug/mL Erythromycin <=0.25 Susceptible ug/mL Clindamycin <=0.25 Susceptible ug/mL Vancomycin <=0.5 Susceptible ug/mL Tetracycline <=1 Susceptible ug/mL Trimethoprim/Sulfamethoxazole <=0.5/9.5 Susceptible ug/mL Staphylococcus hominis - [place]* Oxacillin* Resistant * Oxacillin susceptible isolates are susceptible to cephalosporins (example: cefazolin and cephalexin) and beta lactam combination agents. Oxacillin resistant isolates are resistant to these agents. Gentamicin <=0.5 Susceptible ug/mL Ciprofloxacin <=0.5 Susceptible ug/mL Levofloxacin <=0.12 Susceptible ug/mL Erythromycin <=0.25 Susceptible ug/mL Clindamycin <=0.25 Susceptible ug/mL Vancomycin <=0.5 Susceptible ug/mL Tetracycline >=16 Resistant ug/mL * Antibiotics listed as No Interpretation have no regulatory guidelines for susceptibility/resistance available. Streptococcus anginosus - [place] Ampicillin <=0.06 Susceptible ug/mL Penicillin <=0.03 Susceptible ug/mL Clindamycin >0.5 Resistant ug/mL Cefotaxime <=0.25 Susceptible ug/mL Ceftriaxone <=0.25 Susceptible ug/mL Vancomycin 1 Susceptible ug/mL Meropenem <=0.06 Susceptible ug/mL Streptococcus mitis - [place] Ampicillin <=0.06 Susceptible ug/mL Penicillin <=0.03 Susceptible ug/mL Clindamycin <=0.06 Susceptible ug/mL Cefotaxime <=0.25 Susceptible ug/mL Ceftriaxone <=0.25 Susceptible ug/mL Vancomycin 0.5 Susceptible ug/mL Meropenem <=0.06 Susceptible ug/mL Blood Culture Peripheral Blood Specimen: Peripheral Blood Result Value Ref Range Culture Positive on the 1st day of incubation (A) Culture Staphylococcus hominis (AA) Culture Streptococcus mitis (AA) Culture Streptococcus anginosus (AA) Results for orders placed or performed during the hospital encounter of 01/04/23 Blood Culture Peripheral Blood Specimen: Peripheral Blood Result Value Ref Range Culture No Growth Blood Culture Peripheral Blood Specimen: Peripheral Blood Result Value Ref Range Culture No Growth Results for orders placed or performed during the hospital encounter of 01/08/22 Blood Culture Arm, Left Specimen: Arm, Left; Blood Result Value Ref Range Culture No Growth Blood Culture Peripheral Blood Specimen: Peripheral Blood Result Value Ref Range Culture No Growth Results for orders placed or performed during the hospital encounter of 08/15/21 Blood Culture Peripheral Blood Specimen: Peripheral Blood Result Value Ref Range Culture No Growth Blood Culture Peripheral Blood Specimen: Peripheral Blood Result Value Ref Range Culture No Growth Results for orders placed or performed during the hospital encounter of 12/23/20 Blood culture Specimen: Blood Left Arm Result Value Ref Range Specimen Description Blood Left Arm Special Requests Received in aerobic bottle only Culture Micro No growth Blood culture Specimen: PICC; Blood PICC Result Value Ref Range Specimen Description Blood PICC Culture Micro No growth Blood culture Specimen: PICC; Blood PICC Result Value Ref Range Specimen Description Blood PICC Culture Micro No growth Blood culture Specimen: Peripheral Blood Left Arm Result Value Ref Range Specimen Description Blood Left Arm Special Requests Received in aerobic bottle only Culture Micro No growth Blood culture Specimen: Blood Right Hand Result Value Ref Range Specimen Description Blood Right Hand Special Requests Received in aerobic bottle only Culture Micro No growth Blood culture Specimen: PICC; Blood PICC Result Value Ref Range Specimen Description Blood PICC Culture Micro (A) Cultured on the 1st day of incubation: Streptococcus salivarius group Culture Micro Critical Value/Significant Value, preliminary result only, called to and read back by Faith Lay RN @ 0212 12/27/20 TM. Culture Micro (Note) NEGATIVE for the following: Staphylococcus spp., Staph aureus, Staph epidermidis, Staph lugdunensis, Streptococcus spp., Strep pneumoniae, Strep pyogenes, Strep agalactiae, Strep anginosus group, Enterococcus faecalis, Enterococcus faecium, and Listeria spp. by [employer] multiplex nucleic acid test. Final identification and antimicrobial susceptibility testing will be verified by standard methods. Critical Value/Significant Value called to and read back by Faith Lay RN at 0450 12/27/20 hg Susceptibility Streptococcus salivarius group - [place] Ampicillin 0.25 Susceptible ug/mL Penicillin 0.12 Susceptible ug/mL Vancomycin 0.5 Susceptible ug/mL Cefotaxime <=0.25 Susceptible ug/mL Ceftriaxone <=0.25 Susceptible ug/mL Clindamycin >0.5 Resistant ug/mL Meropenem <=0.06 Susceptible ug/mL Blood culture ONE site Specimen: Blood PICC Result Value Ref Range Specimen Description Blood PICC Culture Micro No growth Blood culture ONE site Specimen: Blood Right Hand Result Value Ref Range Specimen Description Blood Right Hand Culture Micro No growth Results for orders placed or performed during the hospital encounter of 02/29/20 Blood culture Specimen: Blood Result Value Ref Range Specimen Description Blood Special Requests Right Arm Culture Micro No growth Blood culture Specimen: Blood Result Value Ref Range Specimen Description Blood Special Requests Right Arm Culture Micro No growth Results for orders placed or performed during the hospital encounter of 08/01/19 Blood culture Specimen: Blood Right Hand Result Value Ref Range Specimen Description Blood Right Hand Special Requests Received in aerobic bottle only Culture Micro No growth Blood culture Specimen: Blood White port Result Value Ref Range Specimen Description Blood White port Special Requests Aerobic and anaerobic bottles received Culture Micro No growth Results for orders placed or performed during the hospital encounter of 05/02/19 Blood culture Specimen: Blood Left Hand Result Value Ref Range Specimen Description Blood Left Hand Special Requests Received in aerobic bottle only Culture Micro No growth Results for orders placed or performed during the hospital encounter of 07/19/17 Blood culture Specimen: Blood Left Arm Result Value Ref Range Specimen Description Blood Left Arm Special Requests Aerobic and anaerobic bottles received Culture Micro No growth Blood culture Specimen: Blood Left Hand Result Value Ref Range Specimen Description Blood Left Hand Special Requests Aerobic and anaerobic bottles received Culture Micro (A) Cultured on the 2nd day of incubation: Corynebacterium species Culture Micro Critical Value/Significant Value, preliminary result only, called to and read back by Li Hodges RN, LEONOR. 07/22/17 @0904. [facility] [place] Culture Micro (Note) NEGATIVE for the following: Staphylococcus spp., Staph aureus, Staph epidermidis, Staph lugdunensis, Streptococcus spp., Strep pneumoniae, Strep pyogenes, Strep agalactiae, Strep anginosus group, Enterococcus faecalis, Enterococcus faecium, and Listeria spp. by [employer] multiplex nucleic acid test. Final identification and antimicrobial susceptibility testing will be verified by standard methods. Susceptibility Corynebacterium species - E-TEST Ceftriaxone 6.0 Resistant ug/mL Clindamycin 0.50 Susceptible ug/mL Levofloxacin* 0.75 No interpretation available ug/mL * MICs (minimum inhibitory concentrations) of antibiotics which include No Interpretation means there are no national regulatory guidelines for interpretation available. MICs with a greater than sign (>) should be considered resistant for safety reasons. Further advice can be sought from [facility]arm Ds, and Infectious Diseases consultants. Penicillin 0.38 Intermediate ug/mL Vancomycin 0.25 Susceptible ug/mL Trimethoprim/Sulfamethoxazole 0.003 Susceptible ug/mL Meropenem 3.0 Resistant ug/mL Results for orders placed or performed during the hospital encounter of 07/27/16 Blood culture Specimen: Blood Result Value Ref Range Specimen Description Blood Left Hand Special Requests Aerobic and anaerobic bottles received Culture Micro No growth Micro Report Status FINAL 08/04/2016 Blood culture Specimen: Blood Result Value Ref Range Specimen Description Blood Left Hand Culture Micro No growth Micro Report Status FINAL 08/04/2016 Results for orders placed or performed during the hospital encounter of 09/21/15 Blood culture ONE site Specimen: Blood Result Value Ref Range Specimen Description Blood Unspecified Site Culture Micro No growth Micro Report Status FINAL 09/27/2015 Results for orders placed or performed during the hospital encounter of 03/20/14 Blood culture Specimen: Blood Result Value Ref Range Specimen Description Blood Right Arm Special Requests Aerobic and anaerobic bottles received Culture Micro No growth Micro Report Status FINAL 03/26/2014 Blood culture Specimen: Arm, Left; Blood Result Value Ref Range Specimen Description Blood Left Arm Special Requests Aerobic and anaerobic bottles received Culture Micro No growth Micro Report Status FINAL 03/26/2014 Results for orders placed or performed during the hospital encounter of 01/21/14 Blood culture Specimen: Blood Result Value Ref Range Specimen Description Blood Right Hand Special Requests Aerobic and anaerobic bottles received Culture Micro No growth Micro Report Status FINAL 01/27/2014 Blood culture Specimen: PICC; Blood Result Value Ref Range Specimen Description Blood PICC Special Requests Aerobic and anaerobic bottles received Culture Micro No growth Micro Report Status FINAL 01/27/2014 Results for orders placed or performed during the hospital encounter of 01/19/14 Blood culture ONE site Specimen: PICC; Blood Result Value Ref Range Specimen Description Blood PICC Culture Micro (A) Cultured on the 2nd day of incubation: Staphylococcus epidermidis Critical Value, preliminary result only, called to and read back by Mary Pozo RN 01/21/14 @0014 AV Micro Report Status FINAL 01/23/2014 Susceptibility Cultured on the 2nd day of incubation: staphylococcus epidermidis ([place]) - (no method available) Ciprofloxacin <=0.5 Susceptible ug/mL Clindamycin >=8 Resistant ug/mL Erythromycin >=8 Resistant ug/mL Gentamicin <=0.5 Susceptible ug/mL Levofloxacin <=0.12 Susceptible ug/mL Oxacillin >=4 Resistant ug/mL Penicillin >=0.5 Resistant ug/mL Tetracycline 2 Susceptible ug/mL Vancomycin 2 Susceptible ug/mL Trimethoprim/Sulfamethoxazole Value in next row ug/mL <=0.5/9.5 Susceptible *Note: Due to a large number of results and/or encounters for the requested time period, some results have not been displayed. A complete set of results can be found in Results Review. Urine culture: Results for orders placed or performed during the hospital encounter of 01/08/24 Urine Culture Specimen: Urine, Midstream Result Value Ref Range Culture <10,000 CFU/mL Mixture of Urogenital Loan Results for orders placed or performed during the hospital encounter of 11/23/23 Urine Culture Specimen: Urine, Clean Catch Result Value Ref Range Culture <10,000 CFU/mL Mixture of Urogenital Loan Results for orders placed or performed during the hospital encounter of 11/10/23 Urine Culture Specimen: Urine, Clean Catch Result Value Ref Range Culture <10,000 CFU/mL Urogenital loan Results for orders placed or performed during the hospital encounter of 11/09/23 Urine Culture Specimen: Urine, Clean Catch Result Value Ref Range Culture No Growth Results for orders placed or performed during the hospital encounter of 10/28/23 Urine Culture Specimen: Urine, Clean Catch Result Value Ref Range Culture <10,000 CFU/mL Urogenital loan Urine Culture Specimen: Urine, Midstream Result Value Ref Range Culture <10,000 CFU/mL Urogenital loan Results for orders placed or performed during the hospital encounter of 10/23/23 Urine Culture Specimen: Urine, Midstream Result Value Ref Range Culture No Growth Results for orders placed or performed during the hospital encounter of 09/04/23 Urine Culture Specimen: Urine, Midstream Result Value Ref Range Culture 50,000-100,000 CFU/mL Mixture of urogenital loan Results for orders placed or performed during the hospital encounter of 06/18/23 Urine Culture Specimen: Urine, Midstream Result Value Ref Range Culture >100,000 CFU/mL Mixture of urogenital loan Results for orders placed or performed during the hospital encounter of 01/04/23 Urine Culture Specimen: Urine, Clean Catch Result Value Ref Range Culture 50,000-100,000 CFU/mL Mixture of urogenital loan Results for orders placed or performed during the hospital encounter of 04/17/21 Urine Culture Aerobic Bacterial Specimen: Midstream Urine Result Value Ref Range Specimen Description Midstream Urine Special Requests Specimen received in preservative Culture Micro 50,000 to 100,000 colonies/mL mixed urogenital loan Susceptibility testing not routinely done Results for orders placed or performed during the hospital encounter of 08/01/19 Urine Culture Aerobic Bacterial Specimen: Midstream Urine Result Value Ref Range Specimen Description Midstream Urine Special Requests Specimen received in preservative Culture Micro No growth Results for orders placed or performed during the hospital encounter of 07/27/16 Urine Culture Aerobic Bacterial Specimen: Urine Result Value Ref Range Specimen Description Midstream Urine Special Requests Specimen received in preservative Culture Micro 50,000 to 100,000 colonies/mL mixed urogenital loan Micro Report Status FINAL 07/28/2016 Results for orders placed or performed during the hospital encounter of 12/09/15 Urine Culture Aerobic Bacterial Result Value Ref Range Specimen Description Midstream Urine Special Requests Specimen received in preservative Culture Micro No growth Micro Report Status FINAL 12/10/2015 Results for orders placed or performed during the hospital encounter of 03/26/14 Urine culture Result Value Ref Range Specimen Description Midstream Urine Special Requests Specimen received in preservative Culture Micro (A) 50,000 to 100,000 colonies/mL Beta hemolytic Streptococcus group B Group B Streptococcus may be significant in OB patients, however, it is part of the normal urogenital loan. Group B Streptococci are susceptible to ampicillin, penicillin, and cefazolin, but may be erythromycin and/or clindamycin resistant. Contact Microbiology if your patient is allergic to penicillin and you need erythromycin and/or clindamycin testing to be performed. Clindamycin and Erythromycin are not routinely prescribed for isolates from the urinary tract. Susceptibility testing must be requested within 5 days. 50,000 to 100,000 colonies/mL Mixed gram negative and positive loan Multiple species present, probable perineal contamination. Micro Report Status FINAL 03/29/2014 Results for orders placed or performed during the hospital encounter of 03/20/14 Urine culture Result Value Ref Range Specimen Description Midstream Urine Special Requests Specimen received in preservative Culture Micro 10,000 to 50,000 colonies/mL Mixed gram positive and gram negative bacteria present. Multiple species present, probable perineal contamination. Micro Report Status FINAL 03/22/2014 Results for orders placed or performed during the hospital encounter of 01/21/14 Urine culture Specimen: Urine clean catch Result Value Ref Range Specimen Description Midstream Urine Special Requests Specimen received in preservative Culture Micro 50,000 to 100,000 colonies/mL Mixed gram positive loan Multiple species present, probable perineal contamination. Susceptibility testing not routinely done Micro Report Status FINAL 01/23/2014 *Note: Due to a large number of results and/or encounters for the requested time period, some results have not been displayed. A complete set of results can be found in Results Review. * Sam Jain DO - 03/09/2024 4:19 AM CDT XC 1/2 BC from 03/08 with GNR. Here with back pain, concern for discitis and OM. ID following, prior BCwith strep mitis, thought to be a contaminant. Will recheck STAT BC and start nathalie given h/o ESBL. Sam Jain DO * Carlos Vila MD - 03/08/2024 1:08 PM CDT Rapid response Called to bedside for reaction to iron infusion Patient with increased confusion, fever to over 104, severe nausea, hypertension to 170s. Patient writhing in bed and difficult to understand. Plan: Problems Drug reaction Fever Nausea/vomiting Given solumedrol, ativan (has allergies to zofran/phenergen/reglan/compazine), stopped iron, IV fluids, and benadryl Overtime her nausea improved but then developed complaints of not being able to move though keepingboth arms elevated. She also is more confused. Prior to this is also on dilaudid Will add scopolamine for her nausea Valium as it is longer acting for nausea Check a cbc and blood culture as her admitting concern was for possible infection Give tylenol rectally for her fever IV pepcid for her reaction to the venofer and placed on her allergy list IV proton pump inhibitor Reviewed medications with pharm D, is not on anything to suggest serotonin syndrome Updated charge nurse and bedside nurse At this point no need for ICU cares. I have been bedside for 65 minutes critical care Addendum: lactic acid came back high not expected at 3.3. will give a liter of saline and recheck. Will also check a prolactin just incase this episode represented a seizure which I doubt. Wbc is up to at 19 but this is in the setting of a medrol dose pack and getting solumedrol IV. Will repeat in the am Carlos Vila MD * Carlos Vila MD - 03/08/2024 11:09 AM CDT [facility] Medicine Progress Note - Hospitalist Service Date of Admission: 03/05/2024 Primary Care Physician Segundo Mcclelland CONSULTANTS: ID, neurosurgery Assessment & Plan History of Present Illness: Sandi Lopez is a 38 year old female with a complicated past medical history including POTS requiring central access currently with a port in place as of 02/03, multiple episodes of bacteremia and line infections of unclear infectious nidus, chronic back pain with previous lumbar discectomy for herniation, chronic pain syndrome, anxiety, MDD, borderline personality disorder, gastroparesis, nephrolithiasis, iron deficiency anemia, GERD, obesity, and suspected opiate/benzodiazepine dependence who presents with severe back pain. She reports chronic low back pain from previous surgery for disc herniation. She was seen in the ER on 02/25 and 03/02 for acute on chronic low back pain along with numbness down the left side and reported leg weakness. She had a lumbar MRI that showed L4-L5 opposing endplate edema with associated has been that could be osteomyelitis although felt to be less likely overall based on the imaging. Neurosurgery was contacted recommended following inflammatory markers. Her CRP was high at that time as was ESR she had blood cultures drawn. Peripheral blood culture now positive for strep mitis 1 of 2 culture from 03/02/24. She was told to come back to the emergency room for further treatment and workup. The pain is now severe in the low back. She cannot find any co mfortable position. She has been taking acetaminophen 4500 mg in a day and oral Dilaudid at home without any improvement. Reports similar paresthesias and weakness to previous. She has had ongoing issues with nausea and vomiting from her gastroparesis. She felt absolutely terrible throughout the day today and had shaking chills for about 90 minutes this morning. She did not check her temperature,but she was sweaty as well after this. She denies any new dysuria or hematuria. No new cough or shortness of breath. History obtained from patient, medical record, and from CLAIR Cronin in the emergency department. Blood pressure 160/79 then 109/70, tachycardic 113 then 99, temperature 98.9 ??F, oxygen 90% on room air. Potassium low at 3.2 otherwise BMP unremarkable. CRP elevated at 142 as is ESR 37. Lactic acid normal at 1.3. WBC 12.9, drop in hemoglobin to 9.5, platelet count 239. Stool occult blood is negative. Previous lumbar spine shows possible L4-5 osteomyelitis although this could be from degenerative change. She received 2 g IV Ancef, oral Dilaudid 2 mg, 1 L NS, 40 g oral potassium but she could not tolerate this due to vomiting, and a dose of Eliquis. Admit inpatient with ID and neurosurgery consultation. Severe acute on chronic low back pain, possible L4-L5 osteomyelitis, complicated by her Chronic pain syndrome Strep mitis bacteremia 1 of 2 blood culture 03/02/24, possible infected port vs Possible odontogenic source Hx bacteremia, ESBl, fungemia, severe back pain: Patient with a history of chronic back pain with previous discectomy, no hardware in place. Severely worsening back pain in the past few days despite oral Dilaudid. Reporting rigors 03/05/24 and she did have a positive blood culture from the ER on 03/02 for strep mitis. Neurosurgery recommended lumbar MRI which was done on 03/02 that showing opposing endplate edema L4-L5, but no enhancement of the intervertebral disc or abnormal single in the paraspinous tissues so infection seems less likely based on imaging alone and could represent degenerative Modic type I change per radiology. However, given that she had rigors, bacteremia, port in place, self-reported severely worsening pain, and CRP now rising to 142 from 112 few days prior to admission and ESR 37 from 18 infection involving the spine ispossible. Also has a new leukocytosis of 12.9. She does have chronic pain and has had numerous short-term prescriptions over the past many months for oral Dilaudid along with exhibiting symptoms and b ehavior of pain out of proportion to what would be suspected from previous spine imaging while herein the hospital. However, if she has acute osteomyelitis then this certainly would result in severepain in any individual. Anaphylaxis allergy listed NSAID. She reports taking 4500 mg of acetaminophen at a time (sent off lfts). Seen in the ER 02/10, 02/16x2, 02/25, 03/02 for chest pain and then back pain. -Previous bacteremia infections: -April 2023 blood cultures growing Strep anginosus, Staph aureus, Staph hominis, strep mitis -10/23/2023 ESBL Klebsiella pneumoniae cultures positive x 2. Line associated -10/28/2023 Enterobacter [place] complex and Enterococcus faecalis positive cultures -11/09/2023 Anderson like the Lyrica and Anderson dubliniensis blood cultures. Port removed then -01/08/2024 positive culture for Actinomyces odontolyticus, not treated and felt to be contaminant. No line in place then. -now 03/02/2024 peripheral blood culture positive for strep mitis 1 of -03/05/24 blood culture negative to date 2 of -03/07/24 blood culture negative to date 2 of Based on the types of bacteria in the setting of central line placement this does bring up the possibility of insufficient treatment of previous infections, bad teeth, or possible self inoculation. Alternatively, there are multiple oral loan organisms previously growing in her blood and she reports having a cracked right upper molar that intermittently drains some fluid which could be a source for ongoing intermittent bacteremia. She does have a cracked tooth on exam that is not currently actively draining. She has not had the tooth pulled or fixed due to not having dental insurance. Placed on IV Ancef 2 g every 8 hours covering the strep mitis bacteremia, ID to see. Also neurosurgery has seen and is not planning any surgical intervention and have signed off. If gets worse they should becalled. Given her history, goal from my point of view would be not to do surgery and most certainlyshould not have any hardware placed. Will need to follow blood cultures, fever curve. Continue on Acetaminophen 1000 mg every 6 hours as needed for mild pain. Oral Dilaudid 2 mg for moderate and 4 mgfor severe pain every 3 hours as needed, Flexeril 10 mg 3 times daily as needed for muscle spasms. Holding Eliquis initially in case of need for potential bone biopsy or surgery, resumed DOAC 03/07/24.If persistent bacteremia then would need to consider port removal, defer to ID. Will need outpatient follow up with oral surgery or dentistry as the source could be her teeth. We do not have oral surg guanako to comes to [place]. Awaiting finalization of her cultures, ID at this point stopped antibioticsand watching. Culture remain negative to date. Given her ongoing pain, consider repeat her MRI in afew weeks. Will treat for disc disesae given her symptoms. Add a medrol dose pack, robaxin, and physical therapy. Hopefully blood cultures on follow-up remain negative or also need to consider removing her Port-A-Cath. Sed rate is up to 44 from 37. CRP down to 71 from 143. History PEs, chronic anticoagulation: History PEs, most recently November 2023. Chronically on Eliquis 5 mg twice daily which is being held initially in case of need for bone biopsy or procedure in addition to her acutely worsening anemia. Last dose evening 03/05 in the ER. PCD's. Resumed her lifelong DOAC. History of induced pulmonary embolus after delivery. 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 Acute on chronic anemia: Hemoglobin dropping to 7.6 from a baseline of 11-12. She has chronic iron deficiency anemia. She jackie Eliquis, but denies any blood loss. Stool occult blood is negative. Suspect in part related to the acute inflammatory response evidenced by high CRP in the setting of bacteremia possible osteomyelitis. CBC and type and screen in the morning . Resuming Eliquis initially as above. Did get transfused 4.9 and hemoglobin up to 9.4. sees Dr Allyssa Justice. Her last note from 03/01/24 has been reviewed. Patient with chronic anemia since age 13 initially was due to menstral bleedin but has had a hysterectomy. Now gatroparesis and malabsorption is an issue. Patient with a history of getting venofer. Will give venofer while here. Hypokalemia: Potassium low at 3.2. Has chronic issues with vomiting. Was not tolerating oral potassium in the ER. Placed on replacement Gastroparesis, Nausea, vomiting: Reports history of gastroparesis secondary previous Ozempic use. She has chronic nausea and vomiting. She has allergies listed to Compazine, Zofran, metoclopramide, and Phenergan. This many allergiesto different antinausea medications is extremely unlikely in any 1 person. She has issues with anxiety that she self-reports is severely worse in the hospital and per chart review also has issues with concerns for benzodiazepine abuse in the past. Based on thorough chart review by my partner, we dosuspect the allergies listed are in part a way to receive IV lorazepam for refractory nausea in addition to IV pain medications in the hospital. IV lorazepam 0.5 mg every 4 hours as needed for refractory nausea and vomiting. Malabsorption has been an issue. POTS: Chronic issues with syncope and near syncopal episodes with previous diagnosis of POTS. She says she is post to get IV fluids twice per week and this is why she has had PICC line and ports in the past. Port removed in October 2023 for bacteremia/fungemia. Port replaced 02/04/2024. Seen in the ER 01/18, 01/19, 01/27, 01/28 for syncope. IV fluid boluses as needed while here for symptoms Anxiety MDD Borderline personality disorder Insomnia Drug seeking behavior: These are the diagnoses listed in her previous medical history, unclear if previously diagnosed by a psychiatrist. She has had multiple prescriptions in the past for 1 mg oral lorazepam as needed foranxiety. She informs me that her anxiety is through the roof when she is hospitalized and will needmedication for this. She also takes Ambien 10 mg at night as needed. Resume Ambien, Oral lorazepam as needed for anxiety. Need to watch for drug seeking behavior for benzos/opiates. Also I did let the patient know we are worried about self injurious behavior given her multiple blood cultures with multiple different organisms. Patient denies self injecting or trying to harm herself at this point. Patient has a pain contract with her primary care provider Dr. Mcclelland Obesity: BMI 31.4, complicates cares History nephrolithiasis DVT Prophylaxis: Pneumatic Compression Devices Code Status: Full Code FEN: Regular diet Lines: Right chest port Discharge Dispo: TBD. May need weeks of IV antibiotics. Estimated Disch Date / # of Days until Disch: Admit inpatient for bacteremia and potential lumbar osteomyelitis. Anticipate multiple day hospitalization. Clinically Significant Risk Factors Present on Admission # Hypokalemia: Lowest K = 3.2 mmol/L in last 2 days, will replace as needed # Drug Induced Coagulation Defect: home medication list includes an anticoagulant medication # Obesity: Estimated body mass index is 31.47 kg/m?? as calculated from the following: Height as of this encounter: 1.676 m (5' 6). Weight as of this encounter: 88.5 kg (195 lb). # Financial/Environmental Concerns: has not sought the care of a dentist due to cost and lack of insurance coverage Discussed plan of care with nursing, social work, case management, neurosrugery/ID notes reviewed once again RESTRAINTS: not indicated Code Status: Full Code Follow up plan: Needs to see oral surgery vs dentist as outpatient This document was created using voice recognition technology. Please excuse any typographical errors that may have occurred. Please call with any questions. Disposition Plan Expected Discharge Date: 03/09/2024 Destination: home;home with family;home with help/services Discharge Comments: Home Barrier to discharge: if blood cultures remain negative, will not need antibiotics. Goal is better pain control. If ambulating, home 03/09. . Carlos Vila MD Hospitalist Service [facility] Securely message with [employer] (more info) Text page via [facility] Paging/Directory Interval History Patient really has not been getting up and about due to her severe back pain. Has not had fever, chills, sweats. Blood cultures have remained negative other than 1 culture that was done as an outpatient. He has no signs or symptoms of current sepsis. Was taken off antibiotics yesterday and seems candido tolerating this. ROS: A comprehensive review of systems was negative except for items noted in the HPI. Patient currently denies any fever, chills, sweats, nausea, vomiting, diarrhea, shortness of breath, or chest pain. Physical Exam Vital Signs: Temp: 98.8 ??F (37.1 ??C) Temp src: Temporal BP: 122/65 Pulse: 119 Resp: 16 SpO2: 97 %O2 Device: None (Room air) Weight: 250 lbs .03 oz Exam is stable from yesterday General appearance: Patient is alert and oriented x3, is in minimal distress and appears uncomfortable, pleasant and conversing normally, speaking in full sentences, appears stated age, l lying in bed HEENT: Mucous membranes are moist RESPIRATORY: Clear to auscultation bilateral, good air movement CARDIOVASCULAR: Regular rate and rhythm, no murmurs Chest: Right Port-A-Cath in place without any evidence of tenderness, erythema, or drainage GASTROINTESTINAL: obese, Non-distended, non-tender, soft, bowel sounds present throughout, NEUROLOGIC: Cranial nerves II-XII intact, without any focal deficits EXTREMITIES: Moves all extremities, no clubbing, cyanosis, nor edema : Garcia not present Data I have personally reviewed the following data over the past 24 hrs: Procal: N/A CRP: N/A Lactic Acid: N/A Imaging: Results for orders placed or performed during the hospital encounter of 03/02/24 MR Lumbar Spine w/o & w Contrast Narrative EXAM: MR LUMBAR SPINE W/O and W CONTRAST LOCATION: [facility] DATE: 03/02/2024 INDICATION: low back pain and patient reporting saddle anesthesia COMPARISON: Plain radiographs 12/19/2023. CONTRAST: 9ML LEONARDA TECHNIQUE: Routine Lumbar Spine MRI without and with IV contrast. FINDINGS: Nomenclature is based on 5 lumbar type vertebral bodies. Normal vertebral body heights and alignment. Mixed Modic type I and type II changes with associated contrast enhancement at the opposing [id number]. No abnormal contrast enhancement in the intervertebral disc. Normal distal spinal cord and cauda equina with conus medullaris at T12-L1. Noextraspinal abnormality. Unremarkable visualized bony pelvis. T12-L1: Normal [...] No spinal canal or neural foraminal stenosis. Impression IMPRESSION: 1. Multilevel lumbar spondylosis without high-grade [...] suspicion for discitis osteomyelitis, recommend follow-up imaging. *Note: Due to a large number of results and/or encounters for the requested time period, some results have not been displayed. A complete set of results can be found in Results Review. Procedures: none I have personally have reviewed the patient's most up to date labs, orders, and medications myself * June Jones MD - 03/08/2024 10:39 AM CDT Infectious disease brief note No new recommendations today Repeat blood cultures continue to be negative If there is high concern that she has infection in her spine I would recommend IR to do biopsy and send tissue for cultures versus repeat MRI in a couple weeks to reassess The strep mitis 1 out of 2 positive blood cultures with all been negative does not explain the discfindings MRI also not very concerning for infection June Jones MD Infectious Disease * Carlos Vila MD - 03/07/2024 11:22 AM CDT [facility] Medicine Progress Note - Hospitalist Service Date of Admission: 03/05/2024 Primary Care Physician Segundo Mcclelland CONSULTANTS: ID, neurosurgery Assessment & Plan History of Present Illness: Sandi Lopez is a 38 year old female with a complicated past medical history including POTS requiring central access currently with a port in place as of 02/03, multiple episodes of bacteremia and line infections of unclear infectious nidus, chronic back pain with previous lumbar discectomy for herniation, chronic pain syndrome, anxiety, MDD, borderline personality disorder, gastroparesis, nephrolithiasis, iron deficiency anemia, GERD, obesity, and suspected opiate/benzodiazepine dependence who presents with severe back pain. She reports chronic low back pain from previous surgery for disc herniation. She was seen in the ER on 02/25 and 03/02 for acute on chronic low back pain along with numbness down the left side and reported leg weakness. She had a lumbar MRI that showed L4-L5 opposing endplate edema with associated has been that could be osteomyelitis although felt to be less likely overall based on the imaging. Neurosurgery was contacted recommended following inflammatory markers. Her CRP was high at that time as was ESR she had blood cultures drawn. Peripheral blood culture now positive for strep mitis 1 of 2 culture from 03/02/24. She was told to come back to the emergency room for further treatment and workup. The pain is now severe in the low back. She cannot find any co mfortable position. She has been taking acetaminophen 4500 mg in a day and oral Dilaudid at home without any improvement. Reports similar paresthesias and weakness to previous. She has had ongoing issues with nausea and vomiting from her gastroparesis. She felt absolutely terrible throughout the day today and had shaking chills for about 90 minutes this morning. She did not check her temperature,but she was sweaty as well after this. She denies any new dysuria or hematuria. No new cough or shortness of breath. History obtained from patient, medical record, and from CLAIR Cronin in the emergency department. Blood pressure 160/79 then 109/70, tachycardic 113 then 99, temperature 98.9 ??F, oxygen 90% on room air. Potassium low at 3.2 otherwise BMP unremarkable. CRP elevated at 142 as is ESR 37. Lactic acid normal at 1.3. WBC 12.9, drop in hemoglobin to 9.5, platelet count 239. Stool occult blood is negative. Previous lumbar spine shows possible L4-5 osteomyelitis although this could be from degenerative change. She received 2 g IV Ancef, oral Dilaudid 2 mg, 1 L NS, 40 g oral potassium but she could not tolerate this due to vomiting, and a dose of Eliquis. Admit inpatient with ID and neurosurgery consultation. Severe acute on chronic low back pain, possible L4-L5 osteomyelitis, complicated by her Chronic pain syndrome Strep mitis bacteremia 1 of 2 blood culture 03/02/24, possible infected port vs Possible odontogenic source Hx bacteremia, ESBl, fungemia: Patient with a history of chronic back pain with previous discectomy, no hardware in place. Severely worsening back pain in the past few days despite oral Dilaudid. Reporting rigors 03/05/24 and she did have a positive blood culture from the ER on 03/02 for strep mitis. Neurosurgery recommended lumbar MRI which was done on 03/02 that showing opposing endplate edema L4-L5, but no enhancement of the intervertebral disc or abnormal single in the paraspinous tissues so infection seems less likely based on imaging alone and could represent degenerative Modic type I change per radiology. However, given that she had rigors, bacteremia, port in place, self-reported severely worsening pain, and CRP now rising to 142 from 112 few days prior to admission and ESR 37 from 18 infection involving the spine ispossible. Also has a new leukocytosis of 12.9. She does have chronic pain and has had numerous short-term prescriptions over the past many months for oral Dilaudid along with exhibiting symptoms and b ehavior of pain out of proportion to what would be suspected from previous spine imaging while herein the hospital. However, if she has acute osteomyelitis then this certainly would result in severepain in any individual. Anaphylaxis allergy listed NSAID. She reports taking 4500 mg of acetaminophen at a time (send off lfts). Seen in the ER 02/10, 02/16x2, 02/25, 03/02 for chest pain and then back pain. -Previous bacteremia infections: -April 2023 blood cultures growing Strep anginosus, Staph aureus, Staph hominis, strep mitis -10/23/2023 ESBL Klebsiella pneumoniae cultures positive x 2. Line associated -10/28/2023 Enterobacter [place] complex and Enterococcus faecalis positive cultures -11/09/2023 Anderson like the Lyrica and Anderson dubliniensis blood cultures. Port removed then -01/08/2024 positive culture for Actinomyces odontolyticus, not treated and felt to be contaminant. No line in place then. -now 03/02/2024 peripheral blood culture positive for strep mitis 1 of 2 -03/05/24 blood culture negative to date 2 of 2 Based on the types of bacteria in the setting of central line placement this does bring up the possibility of insufficient treatment of previous infections, bad teeth, or possible self inoculation. Alternatively, there are multiple oral loan organisms previously growing in her blood and she reports having a cracked right upper molar that intermittently drains some fluid which could be a source for ongoing intermittent bacteremia. She does have a cracked tooth on exam that is not currently actively draining. She has not had the tooth pulled or fixed due to not having dental insurance. Placed on IV Ancef 2 g every 8 hours covering the strep mitis bacteremia, ID to see. Also neurosurgery has seen and is not planning any surgical intervention and have signed off. If gets worse they should becalled. Given her history, goal from my point of view would be not to do surgery and most certainlyshould not have any hardware placed. Will need to follow blood cultures, fever curve. Continue on Acetaminophen 1000 mg every 6 hours as needed for mild pain. Oral Dilaudid 2 mg for moderate and 4 mgfor severe pain every 3 hours as needed, Flexeril 10 mg 3 times daily as needed for muscle spasms. Holding Eliquis initially in case of need for potential bone biopsy or surgery, will resume DOAC. Ifpersistent bacteremia then would need to consider port removal, defer to ID. Will need outpatient follow up with oral surgery or dentistry as the source could be her teeth. We do not have oral surgery to comes to [facility]. Awaiting finalization of her cultures, ID to determine need for ongoing antibiotics and length of therapy. Given her severe pain would favor treating for possible lumbar infection. Hopefully blood cultures on follow-up remain negative or also need to consider removing her Port-A-Cath. Sed rate is up to 44 from 37. CRP and repeat blood cultures are pending from today, blood cultures 03/05 are negative to date 12/31.. History PEs, chronic anticoagulation: History PEs, most recently November 2023. Chronically on Eliquis 5 mg twice daily which is being held initially in case of need for bone biopsy or procedure in addition to her acutely worsening anemia. Last dose evening 03/05 in the ER. PCD's. Resume her DOAC lifelong. History of induced pulmonary embolus after delivery. 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 Acute on chronic anemia: Hemoglobin dropping to 7.6 from a baseline of 11-12. She has chronic iron deficiency anemia. She jackie Eliquis, but denies any blood loss. Stool occult blood is negative. Suspect in part related to the acute inflammatory response evidenced by high CRP in the setting of bacteremia possible osteomyelitis. CBC and type and screen in the morning . Resuming Eliquis initially as above. Did get transfused 4.9 and hemoglobin up to 9.4. sees Dr Allyssa Justice. Her last note from 03/01/24 has been reviewed. Patient with chronic anemia since age 13 initially was due to menstral bleedin but has had a hysterectomy. Now gatroparesis and malabsorption is an issue. Patient with a history of getting venofer. Will give venofer while here. Hypokalemia: Potassium low at 3.2. Has chronic issues with vomiting. Was not tolerating oral potassium in the ER. Placed on replacement Gastroparesis, Nausea, vomiting: Reports history of gastroparesis secondary previous Ozempic use. She has chronic nausea and vomiting. She has allergies listed to Compazine, Zofran, metoclopramide, and Phenergan. This many allergiesto different antinausea medications is extremely unlikely in any 1 person. She has issues with anxiety that she self-reports is severely worse in the hospital and per chart review also has issues with concerns for benzodiazepine abuse in the past. Based on thorough chart review by my partner, we dosuspect the allergies listed are in part a way to receive IV lorazepam for refractory nausea in addition to IV pain medications in the hospital. IV lorazepam 0.5 mg every 4 hours as needed for refractory nausea and vomiting. Malabsorption has been an issue. POTS: Chronic issues with syncope and near syncopal episodes with previous diagnosis of POTS. She says she is post to get IV fluids twice per week and this is why she has had PICC line and ports in the past. Port removed in October 2023 for bacteremia/fungemia. Port replaced 02/04/2024. Seen in the ER 01/18, 01/19, 01/27, 01/28 for syncope. IV fluid boluses as needed while here for symptoms Anxiety MDD Borderline personality disorder Insomnia Drug seeking behavior: These are the diagnoses listed in her previous medical history, unclear if previously diagnosed by a psychiatrist. She has had multiple prescriptions in the past for 1 mg oral lorazepam as needed foranxiety. She informs me that her anxiety is through the roof when she is hospitalized and will needmedication for this. She also takes Ambien 10 mg at night as needed. Resume Ambien, Oral lorazepam as needed for anxiety. Need to watch for drug seeking behavior for benzos/opiates. Also I did let the patient know we are worried about self injurious behavior given her multiple blood cultures with multiple different organisms. Patient denies self injecting or trying to harm herself at this point. Obesity: BMI 31.4, complicates cares History nephrolithiasis DVT Prophylaxis: Pneumatic Compression Devices Code Status: Full Code FEN: Regular diet Lines: Right chest port Discharge Dispo: TBD. May need weeks of IV antibiotics. Estimated Disch Date / # of Days until Disch: Admit inpatient for bacteremia and potential lumbar osteomyelitis. Anticipate multiple day hospitalization. Clinically Significant Risk Factors Present on Admission # Hypokalemia: Lowest K = 3.2 mmol/L in last 2 days, will replace as needed # Drug Induced Coagulation Defect: home medication list includes an anticoagulant medication # Obesity: Estimated body mass index is 31.47 kg/m?? as calculated from the following: Height as of this encounter: 1.676 m (5' 6). Weight as of this encounter: 88.5 kg (195 lb). # Financial/Environmental Concerns: has not sought the care of a dentist due to cost and lack of insurance coverage Discussed plan of care with nursing, social work, case management, neurosrugery/ID notes reviewed RESTRAINTS: not indicated Code Status: Full Code Follow up plan: Needs to see oral surgery vs dentist as outpatient This document was created using voice recognition technology. Please excuse any typographical errors that may have occurred. Please call with any questions. Disposition Plan Expected Discharge Date: 03/08/2024 Destination: home;home with family;home with help/services Discharge Comments: Home Barrier to discharge: will need ongoing IV antibiotics, ID to determine need and follow up. Neurosurgery has signed off as there is no plan for surgical intervention. Carlos Vila MD Hospitalist Service [facility] Securely message with Kimani (more info) Text page via [facility] Paging/Directory Interval History Patient slept pretty well overnight refusing to be woken up for pain medicines. When she woke up this morning was in severe pain and took multiple medications to try and get her under control. Neurosurgery has seen and is not planning any surgical intervention at this point and have signed off. Awaiting repeat blood cultures come back hopefully they remain negative. Overall patient is feeling better while on antibiotics. Has a low-grade fever of 99.9. No chills or sweats to speak of. Patient's sed rate is up to 44 from 37. Her CRP and blood cultures are pending. ROS: A comprehensive review of systems was negative except for items noted in the HPI. Patient currently denies any fever, chills, sweats, nausea, vomiting, diarrhea, shortness of breath, or chest pain. Physical Exam Vital Signs: Temp: 99.9 ??F (37.7 ??C) Temp src: Temporal BP: 128/73 Pulse: 114 Resp: 20 SpO2: 95 %O2 Device: None (Room air) Weight: 250 lbs .03 oz Exam is stable from yesterday General appearance: Patient is alert and oriented x3, is in minimal distress and appears uncomfortable, pleasant and conversing normally, speaking in full sentences, appears stated age, lying on her left side in bed, HEENT: Mucous membranes are moist RESPIRATORY: Clear to auscultation bilateral, good air movement CARDIOVASCULAR: Regular rate and rhythm, no murmurs Chest: Right Port-A-Cath in place without any evidence of tenderness, erythema, or drainage GASTROINTESTINAL: obese, Non-distended, non-tender, soft, bowel sounds present throughout, NEUROLOGIC: Cranial nerves II-XII intact, without any focal deficits EXTREMITIES: Moves all extremities, no clubbing, cyanosis, nor edema : Garcia not present Data I have personally reviewed the following data over the past 24 hrs: 10.8 \ 9.4 (L) / 317 137 101 3.8 (L) / 128 (H) 3.4 21 (L) 0.73 \ ALT: N/A AST: N/A AP: N/A TBILI: N/A ALB: N/A TOT PROTEIN: N/A LIPASE: N/A Procal: N/A CRP: N/A Lactic Acid: 0.9 Imaging: Results for orders placed or performed during the hospital encounter of 03/02/24 MR Lumbar Spine w/o & w Contrast Narrative EXAM: MR LUMBAR SPINE W/O and W CONTRAST LOCATION: [facility] DATE: 03/02/2024 INDICATION: low back pain and patient reporting saddle anesthesia COMPARISON: Plain radiographs 12/19/2023. CONTRAST: 9ML LEONARDA TECHNIQUE: Routine Lumbar Spine MRI without and with IV contrast. FINDINGS: Nomenclature is based on 5 lumbar type vertebral bodies. Normal vertebral body heights and alignment. Mixed Modic type I and type II changes with associated contrast enhancement at the opposing L4-X7suyrovsen. No abnormal contrast enhancement in the intervertebral disc. Normal distal spinal cord and cauda equina with conus medullaris at T12-L1. Noextraspinal abnormality. Unremarkable visualized bony pelvis. T12-L1: Normal [...] No spinal canal or neural foraminal stenosis. Impression IMPRESSION: 1. Multilevel lumbar spondylosis without high-grade [...] suspicion for discitis osteomyelitis, recommend follow-up imaging. *Note: Due to a large number of results and/or encounters for the requested time period, some results have not been displayed. A complete set of results can be found in Results Review. Procedures: none I have personally have reviewed the patient's most up to date labs, orders, and medications myself * Viviana Villanueva RN - 03/07/2024 10:58 AM CDT Care Management Follow Up Length of Stay (days): 2 Expected Discharge Date: 03/08/2024 Concerns to be Addressed: discharge planning Patient plan of care discussed at interdisciplinary rounds: Yes Anticipated Discharge Disposition: Anticipated Discharge Services: Anticipated Discharge DME: Patient/family educated on Medicare website which has current facility and service quality ratings:no Education Provided on the Discharge Plan: no Patient/Family in Agreement with the Plan: Referrals Placed by CM/SW: Private pay costs discussed: Not applicable Additional Information: Restrictive Access Info CM received call from [facility] Restrictive Recipient Program, [place], P [phone]. Patient can onlyreceive Medications from [facility]. For hospitalizations, Dr Mcclelland needs to complete a restrictive release so Hospitalist can write orders. RX's can only be filled at [facility] in [place]. For IV medications if patient should need they have used [facility] in the past.[facility] Cm requests as much notice as can give in order to complete these releases. CM will monitor for discharge needs and call [facility] as final plans develop. Maira Villanueva RN, BSN, CM Inpatient Care Coordination [facility] [phone] * June Jones MD - 03/07/2024 10:57 AM CDT [facility] Infectious Disease Progress Note Date of Service (when I saw the patient): 03/07/2024 Assessment & Plan Sandi Lopez is a 38 year old who was admitted on 03/05/2024. 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, loss of > 100 lbs, hx of DVT/PE, severe anxiety, anemia, thrombocytosis, chronic pain, obesity admitted with positive blood culture johny 1/2 for strep oralis/ mitis 2nd blood culture is still negative Repeat blood cultures are pending Back pain: MRI no discitis/ osteo On ancef Recommendations: So far only 1/2 positive cultures for strep mitis think is a contaminant Repeat cultures are negative at 1 day stop antibiotics and watch off If multiple positive blood cultures will recommend removal of port and further investigation to look for sources Imaging less suspicious for osteomyelitis if continued concern for osteo, recommend aspiration to confirm the diagnosis vs repeat interval imaging but so far but based on imaging and only 1 positive blood culture for strep mitis suspicion is low June Jones MD Interval History Tolerating antibiotics ok No new rashes or issues with antibiotics Labs reviewed No changes to past medical, social or family history Low grade temp Physical Exam Temp: 99.9 ??F (37.7 ??C) Temp src: Temporal BP: 128/73 Pulse: 114 Resp: 20 SpO2: 95 % O2 Device: None (Room air) Vitals: 03/05/24205203/06/241937 Weight: 88.5 kg (195 lb) 107.9 kg (237 lb 14 oz) Vital Signs with Ranges Temp: [98 ??F (36.7 ??C)-99.9 ??F (37.7 ??C)] 99.9 ??F (37.7 ??C) Pulse: [106-126] 114 Resp: [18-22] 20 BP: (122-150)/(48-96) 128/73 SpO2: [90 %-98 %] 95 % Constitutional: Awake, alert, cooperative, no apparent distress Lungs: Clear to auscultation bilaterally, no crackles or wheezing Cardiovascular: Regular rate and rhythm, normal S1 and S2, and no murmur noted Abdomen: Normal bowel sounds, soft, non-distended, non-tender Skin: No rashes, no cyanosis, no edema Other: Medications Current Facility-Administered Medications Medication Dose Route Frequency Provider Last Rate Last Admin Current Facility-Administered Medications Medication Dose Route Frequency Provider Last Rate Last Admin acetaminophen (TYLENOL) tablet 975 mg 975 mg Oral 4x Daily Carlos Vila MD 975 mg at 03/07/24 0818 [Held by provider] apixaban ANTICOAGULANT (ELIQUIS) tablet 5 mg 5 mg Oral BID Ady Thurston MD folic acid (FOLVITE) tablet 1 mg 1 mg Oral Daily Ady Thurston MD 1 mg at 03/07/24 0818 gabapentin (NEURONTIN) capsule 800 mg 800 mg Oral TID Ady Thurston MD 800 mg at 03/07/24 0817 Lidocaine (LIDOCARE) 4 % Patch 1 patch 1 patch Transdermal Q24H Ady Thurston MD 1 patch at 03/07/24 0625 sodium chloride (PF) 0.9% PF flush 3 mL 3 mL Intracatheter Q8H Ady Thurston MD 3 mL at 03/07/24 0033 Data All microbiology laboratory data reviewed. Recent Labs Lab Test 03/06/244 03/06/24 16403/05/248 03/02/24 1342 WBC -- 10.8 12.9* 10.0 HGB 9.4* 7.6* 9.5* 12.3 12.3 HCT -- 23.0* 28.9* 38.5 MCV -- 89 90 91 PLT -- 317 239 365 Recent Labs Lab Test 03/06/24 1649 03/05/248 03/02/24 1342 CR 0.73 0.63 0.72 Recent Labs Lab Test 03/05/242147 SED 37* Recent Labs Lab Test 04/17/21 0529 12/28/20 1026 12/28/20 0630 12/27/20 0723 12/27/20 0615 12/26/20 1205 12/26/20 1158 12/24/20 2230 12/24/20 0131 CULT 50,000 to 100,000 colonies/mL mixed urogenital loan Susceptibility testing not routinely done No growth No growth No growth No growth No growth Cultured on the 1st day of incubation: Streptococcus salivarius group * Critical Value/Significant Value, preliminary result only, called to and read back by Faith Lay RN @ 0212 12/27/20 TM. (Note) NEGATIVE for the following: Staphylococcus spp., Staph aureus, Staph epidermidis, Staph lugdunensis, Streptococcus spp., Strep pneumoniae, Strep pyogenes, Strep agalactiae, Strep anginosus group, Enterococcus faecalis, Enterococcus faecium, and Listeria spp. by B[place]igene multiplex nucleic acid test. Final identification and antimicrobial susceptibility testing will be verified by standard methods. Critical Value/Significant Value called to and read back by Faith Lay RN at 0450 12/27/20 hg No growth No growth All cultures: Recent Labs Lab 03/05/24 2221 03/05/24 2148 03/02/24210903/02/242041 CULTURE No growth after 1 day No growth after 1 day Positive on the 1st day of incubation* Streptococcus mitis/oralis* No growth after 4 days Blood culture: Results for orders placed or performed during the hospital encounter of 03/05/24 Blood Culture Arm, Right Specimen: Arm, Right; Blood Result Value Ref Range Culture No growth after 1 day Blood Culture Arm, Right Specimen: Arm, Right; Blood Result Value Ref Range Culture No growth after 1 day Results for orders placed or performed during the hospital encounter of 03/02/24 Blood Culture Arm, Left Specimen: Arm, Left; Blood Result Value Ref Range Culture Positive on the 1st day of incubation (A) Culture Streptococcus mitis/oralis (AA) Susceptibility Streptococcus mitis/oralis - [place] Ampicillin <=0.06 Susceptible ug/mL Penicillin 0.12 Susceptible ug/mL Clindamycin <=0.06 Susceptible ug/mL Cefotaxime <=0.25 Susceptible ug/mL Ceftriaxone <=0.25 Susceptible ug/mL Vancomycin 0.5 Susceptible ug/mL Meropenem <=0.06 Susceptible ug/mL Blood Culture Arm, Right Specimen: Arm, Right; Blood Result Value Ref Range Culture No growth after 4 days Results for orders placed or performed during the hospital encounter of 01/09/24 Blood Culture Peripheral Blood Specimen: Peripheral Blood Result Value Ref Range Culture No Growth Blood Culture Peripheral Blood Specimen: Peripheral Blood Result Value Ref Range Culture No Growth Results for orders placed or performed during the hospital encounter of 01/08/24 Blood Culture Peripheral Blood Specimen: Peripheral Blood Result Value Ref Range Culture Positive on the 2nd day of incubation (A) Culture Lactobacillus species (AA) Culture Actinomyces odontolyticus (AA) Susceptibility [place] (Actinomyces) odontolytica - [place] Penicillin 0.094 Susceptible ug/mL Amoxicillin/Clavulanate 0.19 Susceptible ug/mL Ceftriaxone 0.75 Susceptible ug/mL Clindamycin 0.50 Susceptible ug/mL Meropenem 0.25 Susceptible ug/mL metronidazole 16 Intermediate ug/mL Lactobacillus species - [place]* Ampicillin 0.064 Susceptible ug/mL Penicillin 0.064 Susceptible ug/mL Clindamycin 0.125 Susceptible ug/mL Gentamicin <=0.064 No interpretation available ug/mL Levofloxacin >32 No interpretation available ug/mL Vancomycin >256 Resistant ug/mL * Antibiotics listed as No Interpretation have no regulatory guidelines for susceptibility/resistance available. Blood Culture Peripheral Blood Specimen: Peripheral Blood Result Value Ref Range Culture No Growth Results for orders placed or performed during the hospital encounter of 11/23/23 Blood Culture Peripheral Blood Specimen: Peripheral Blood Result Value Ref Range Culture No Growth Blood Culture Peripheral Blood Specimen: Peripheral Blood Result Value Ref Range Culture No Growth Results for orders placed or performed during the hospital encounter of 11/10/23 Blood Culture Arm, Left Specimen: Arm, Left; Blood Result Value Ref Range Culture No Growth Blood Culture Wrist, Left Specimen: Wrist, Left; Blood Result Value Ref Range Culture No Growth Blood Culture Hand, Left Specimen: Hand, Left; Blood Result Value Ref Range Culture No Growth Blood Culture Hand, Right Specimen: Hand, Right; Blood Result Value Ref Range Culture No Growth Blood Culture Hand, Left Specimen: Hand, Left; Blood Result Value Ref Range Culture No Growth Blood Culture Hand, Left Specimen: Hand, Left; Blood Result Value Ref Range Culture No Growth Blood Culture Peripheral Blood Specimen: Peripheral Blood Result Value Ref Range Culture Positive on the 2nd day of incubation (A) Culture Bacillus species, not anthracis nor cereus group (AA) Culture Anderson dubliniensis (AA) Culture Anderson lipolytica (AA) Susceptibility Bacillus species, not anthracis nor cereus group - [place] Ampicillin 0.094 Susceptible ug/mL Penicillin 0.064 Susceptible ug/mL Ciprofloxacin 0.094 Susceptible ug/mL Clindamycin 4 Resistant ug/mL Gentamicin 0.064 Susceptible ug/mL Levofloxacin 0.094 Susceptible ug/mL Vancomycin 0.75 Susceptible ug/mL Anderson dubliniensis - [place]* Amphotericin B 0.5 No interpretation available ug/mL Micafungin 0.06 No interpretation available ug/mL Fluconazole 0.5 No interpretation available ug/mL Voriconazole <=0.008 No interpretation available ug/mL * Antibiotics listed as No Interpretation have no regulatory guidelines for susceptibility/resistance available. Testing for antifungal agents was validated in house by the [facility] ([facility]) [place], [place] Blood Culture Peripheral Blood Specimen: Peripheral Blood Result Value Ref Range Culture Positive on the 2nd day of incubation (A) Culture Anderson lipolytica (AA) Results for orders placed or performed during the hospital encounter of 11/09/23 Blood Culture Peripheral Blood Specimen: Peripheral Blood Result Value Ref Range Culture Positive on the 2nd day of incubation (A) Culture Anderson lipolytica (AA) Susceptibility Anderson lipolytica - [place]* Amphotericin B 2.0 No interpretation available ug/mL Micafungin 0.5 No interpretation available ug/mL Fluconazole 4.0 No interpretation available ug/mL Voriconazole 0.06 No interpretation available ug/mL * Antibiotics listed as No Interpretation have no regulatory guidelines for susceptibility/resistance available. Testing for antifungal agents was validated in house by the [facility] ([facility]) [place], [place] Blood Culture Peripheral Blood Specimen: Peripheral Blood Result Value Ref Range Culture Positive on the 2nd day of incubation (A) Culture Anderson lipolytica (AA) Results for orders placed or performed during the hospital encounter of 10/28/23 Blood Culture Line, venous Specimen: Line, venous; Blood Result Value Ref Range Culture No Growth Blood Culture Peripheral Blood Specimen: Peripheral Blood Result Value Ref Range Culture Positive on the 1st day of incubation (A) Culture Enterobacter cloacae complex (AA) Culture Enterococcus faecalis (AA) Susceptibility Enterobacter cloacae complex - [place] Ampicillin* Resistant * Intrinsically Resistant Ampicillin/ Sulbactam* Resistant * Intrinsically Resistant Piperacillin/Tazobactam 8 Susceptible ug/mL Ceftazidime <=1 Susceptible ug/mL Ceftriaxone 4 Resistant ug/mL Cefepime <=1 Susceptible ug/mL Meropenem <=0.25 Susceptible ug/mL Gentamicin <=1 Susceptible ug/mL Tobramycin <=1 Susceptible ug/mL Ciprofloxacin <=0.25 Susceptible ug/mL Levofloxacin <=0.12 Susceptible ug/mL Trimethoprim/Sulfamethoxazole >16/304 Resistant ug/mL Enterococcus faecalis - [place] Ampicillin <=2 Susceptible ug/mL Gentamicin Synergy* Susceptible Susceptible ug/mL * No high level gentamicin resistance found - therefore combination therapy with an aminoglycoside may be indicated for serious enterococcal infections such as bacteremia and endocarditis. Vancomycin 2 Susceptible ug/mL Blood Culture Arm, Right Specimen: Arm, Right; Blood Result Value Ref Range Culture No Growth Results for orders placed or performed during the hospital encounter of 10/23/23 Blood Culture Peripheral Blood Specimen: Peripheral Blood Result Value Ref Range Culture Positive on the 1st day of incubation (A) Culture Klebsiella pneumoniae ESBL (AA) Susceptibility Klebsiella pneumoniae ESBL - [place]* Ampicillin* Resistant * Intrinsically Resistant Piperacillin/Tazobactam <=4 Susceptible ug/mL Ceftazidime Resistant Ceftriaxone Resistant Cefepime Resistant Meropenem* <=0.25 Susceptible ug/mL * Enterobacterales that are susceptible to meropenem are usually susceptible to ertapenem. Gentamicin >=16 Resistant ug/mL Tobramycin 8 Intermediate ug/mL Ciprofloxacin 1 Resistant ug/mL Levofloxacin 1 Intermediate ug/mL Trimethoprim/Sulfamethoxazole <=1/19 Susceptible ug/mL * ESBL (extended spectrum beta lactamase) producing organisms require contact precautions. Blood Culture Peripheral Blood Specimen: Peripheral Blood Result Value Ref Range Culture Positive on the 1st day of incubation (A) Culture Klebsiella pneumoniae (AA) Results for orders placed or performed during the hospital encounter of 06/03/23 Blood Culture Line, venous Specimen: Line, venous; Blood Result Value Ref Range Culture No Growth Results for orders placed or performed during the hospital encounter of 05/04/23 Blood Culture Arm, Right Specimen: Arm, Right; Blood Result Value Ref Range Culture No Growth Blood Culture Arm, Left Specimen: Arm, Left; Blood Result Value Ref Range Culture No Growth Blood Culture Hand, Left Specimen: Hand, Left; Blood Result Value Ref Range Culture No Growth Blood Culture Hand, Left Specimen: Hand, Left; Blood Result Value Ref Range Culture No Growth Blood Culture Peripheral Blood Specimen: Peripheral Blood Result Value Ref Range Culture Positive on the 1st day of incubation (A) Culture Streptococcus anginosus (AA) Culture Staphylococcus aureus (AA) Culture Staphylococcus hominis (AA) Culture Streptococcus mitis (AA) Susceptibility Staphylococcus aureus - [place] Oxacillin* 0.5 Susceptible ug/mL * Oxacillin susceptible isolates are susceptible to cephalosporins (example: cefazolin and cephalexin) and beta lactam combination agents. Oxacillin resistant isolates are resistant to these agents. Gentamicin <=0.5 Susceptible ug/mL Erythromycin <=0.25 Susceptible ug/mL Clindamycin <=0.25 Susceptible ug/mL Vancomycin <=0.5 Susceptible ug/mL Tetracycline <=1 Susceptible ug/mL Trimethoprim/Sulfamethoxazole <=0.5/9.5 Susceptible ug/mL Staphylococcus hominis - [place]* Oxacillin* Resistant * Oxacillin susceptible isolates are susceptible to cephalosporins (example: cefazolin and cephalexin) and beta lactam combination agents. Oxacillin resistant isolates are resistant to these agents. Gentamicin <=0.5 Susceptible ug/mL Ciprofloxacin <=0.5 Susceptible ug/mL Levofloxacin <=0.12 Susceptible ug/mL Erythromycin <=0.25 Susceptible ug/mL Clindamycin <=0.25 Susceptible ug/mL Vancomycin <=0.5 Susceptible ug/mL Tetracycline >=16 Resistant ug/mL * Antibiotics listed as No Interpretation have no regulatory guidelines for susceptibility/resistance available. Streptococcus anginosus - [place] Ampicillin <=0.06 Susceptible ug/mL Penicillin <=0.03 Susceptible ug/mL Clindamycin >0.5 Resistant ug/mL Cefotaxime <=0.25 Susceptible ug/mL Ceftriaxone <=0.25 Susceptible ug/mL Vancomycin 1 Susceptible ug/mL Meropenem <=0.06 Susceptible ug/mL Streptococcus mitis - [place] Ampicillin <=0.06 Susceptible ug/mL Penicillin <=0.03 Susceptible ug/mL Clindamycin <=0.06 Susceptible ug/mL Cefotaxime <=0.25 Susceptible ug/mL Ceftriaxone <=0.25 Susceptible ug/mL Vancomycin 0.5 Susceptible ug/mL Meropenem <=0.06 Susceptible ug/mL Blood Culture Peripheral Blood Specimen: Peripheral Blood Result Value Ref Range Culture Positive on the 1st day of incubation (A) Culture Staphylococcus hominis (AA) Culture Streptococcus mitis (AA) Culture Streptococcus anginosus (AA) Results for orders placed or performed during the hospital encounter of 01/04/23 Blood Culture Peripheral Blood Specimen: Peripheral Blood Result Value Ref Range Culture No Growth Blood Culture Peripheral Blood Specimen: Peripheral Blood Result Value Ref Range Culture No Growth Results for orders placed or performed during the hospital encounter of 01/08/22 Blood Culture Arm, Left Specimen: Arm, Left; Blood Result Value Ref Range Culture No Growth Blood Culture Peripheral Blood Specimen: Peripheral Blood Result Value Ref Range Culture No Growth Results for orders placed or performed during the hospital encounter of 08/15/21 Blood Culture Peripheral Blood Specimen: Peripheral Blood Result Value Ref Range Culture No Growth Blood Culture Peripheral Blood Specimen: Peripheral Blood Result Value Ref Range Culture No Growth Results for orders placed or performed during the hospital encounter of 12/23/20 Blood culture Specimen: Blood Left Arm Result Value Ref Range Specimen Description Blood Left Arm Special Requests Received in aerobic bottle only Culture Micro No growth Blood culture Specimen: PICC; Blood PICC Result Value Ref Range Specimen Description Blood PICC Culture Micro No growth Blood culture Specimen: PICC; Blood PICC Result Value Ref Range Specimen Description Blood PICC Culture Micro No growth Blood culture Specimen: Peripheral Blood Left Arm Result Value Ref Range Specimen Description Blood Left Arm Special Requests Received in aerobic bottle only Culture Micro No growth Blood culture Specimen: Blood Right Hand Result Value Ref Range Specimen Description Blood Right Hand Special Requests Received in aerobic bottle only Culture Micro No growth Blood culture Specimen: PICC; Blood PICC Result Value Ref Range Specimen Description Blood PICC Culture Micro (A) Cultured on the 1st day of incubation: Streptococcus salivarius group Culture Micro Critical Value/Significant Value, preliminary result only, called to and read back by Faith Lay RN @ 0212 12/27/20 TM. Culture Micro (Note) NEGATIVE for the following: Staphylococcus spp., Staph aureus, Staph epidermidis, Staph lugdunensis, Streptococcus spp., Strep pneumoniae, Strep pyogenes, Strep agalactiae, Strep anginosus group, Enterococcus faecalis, Enterococcus faecium, and Listeria spp. by [employer] multiplex nucleic acid test. Final identification and antimicrobial susceptibility testing will be verified by standard methods. Critical Value/Significant Value called to and read back by Faith Lay RN at 0450 12/27/20 hg Susceptibility Streptococcus salivarius group - [place] Ampicillin 0.25 Susceptible ug/mL Penicillin 0.12 Susceptible ug/mL Vancomycin 0.5 Susceptible ug/mL Cefotaxime <=0.25 Susceptible ug/mL Ceftriaxone <=0.25 Susceptible ug/mL Clindamycin >0.5 Resistant ug/mL Meropenem <=0.06 Susceptible ug/mL Blood culture ONE site Specimen: Blood PICC Result Value Ref Range Specimen Description Blood PICC Culture Micro No growth Blood culture ONE site Specimen: Blood Right Hand Result Value Ref Range Specimen Description Blood Right Hand Culture Micro No growth Results for orders placed or performed during the hospital encounter of 04/02/20 Blood culture Specimen: Blood Result Value Ref Range Specimen Description Blood Special Requests Right Arm Culture Micro No growth Blood culture Specimen: Blood Result Value Ref Range Specimen Description Blood Special Requests Right Arm Culture Micro No growth Results for orders placed or performed during the hospital encounter of 08/01/19 Blood culture Specimen: Blood Right Hand Result Value Ref Range Specimen Description Blood Right Hand Special Requests Received in aerobic bottle only Culture Micro No growth Blood culture Specimen: Blood White port Result Value Ref Range Specimen Description Blood White port Special Requests Aerobic and anaerobic bottles received Culture Micro No growth Results for orders placed or performed during the hospital encounter of 05/02/19 Blood culture Specimen: Blood Left Hand Result Value Ref Range Specimen Description Blood Left Hand Special Requests Received in aerobic bottle only Culture Micro No growth Results for orders placed or performed during the hospital encounter of 07/19/17 Blood culture Specimen: Blood Left Arm Result Value Ref Range Specimen Description Blood Left Arm Special Requests Aerobic and anaerobic bottles received Culture Micro No growth Blood culture Specimen: Blood Left Hand Result Value Ref Range Specimen Description Blood Left Hand Special Requests Aerobic and anaerobic bottles received Culture Micro (A) Cultured on the 2nd day of incubation: Corynebacterium species Culture Micro Critical Value/Significant Value, preliminary result only, called to and read back by Li Hodges RN, LEONOR. 07/22/17 @0904. [facility] [place] Culture Micro (Note) NEGATIVE for the following: Staphylococcus spp., Staph aureus, Staph epidermidis, Staph lugdunensis, Streptococcus spp., Strep pneumoniae, Strep pyogenes, Strep agalactiae, Strep anginosus group, Enterococcus faecalis, Enterococcus faecium, and Listeria spp. by [employer] multiplex nucleic acid test. Final identification and antimicrobial susceptibility testing will be verified by standard methods. Susceptibility Corynebacterium species - [facility] Ceftriaxone 6.0 Resistant ug/mL Clindamycin 0.50 Susceptible ug/mL Levofloxacin* 0.75 No interpretation available ug/mL * MICs (minimum inhibitory concentrations) of antibiotics which include No Interpretation means there are no national regulatory guidelines for interpretation available. MICs with a greater than sign (>) should be considered resistant for safety reasons. Further advice can be sought from [facility],Pharm Ds, and Infectious Diseases consultants. Penicillin 0.38 Intermediate ug/mL Vancomycin 0.25 Susceptible ug/mL Trimethoprim/Sulfamethoxazole 0.003 Susceptible ug/mL Meropenem 3.0 Resistant ug/mL Results for orders placed or performed during the hospital encounter of 07/27/16 Blood culture Specimen: Blood Result Value Ref Range Specimen Description Blood Left Hand Special Requests Aerobic and anaerobic bottles received Culture Micro No growth Micro Report Status FINAL 08/04/2016 Blood culture Specimen: Blood Result Value Ref Range Specimen Description Blood Left Hand Culture Micro No growth Micro Report Status FINAL 08/04/2016 Results for orders placed or performed during the hospital encounter of 09/21/15 Blood culture ONE site Specimen: Blood Result Value Ref Range Specimen Description Blood Unspecified Site Culture Micro No growth Micro Report Status FINAL 09/27/2015 Results for orders placed or performed during the hospital encounter of 03/20/14 Blood culture Specimen: Blood Result Value Ref Range Specimen Description Blood Right Arm Special Requests Aerobic and anaerobic bottles received Culture Micro No growth Micro Report Status FINAL 03/26/2014 Blood culture Specimen: Arm, Left; Blood Result Value Ref Range Specimen Description Blood Left Arm Special Requests Aerobic and anaerobic bottles received Culture Micro No growth Micro Report Status FINAL 03/26/2014 Results for orders placed or performed during the hospital encounter of 01/21/14 Blood culture Specimen: Blood Result Value Ref Range Specimen Description Blood Right Hand Special Requests Aerobic and anaerobic bottles received Culture Micro No growth Micro Report Status FINAL 01/27/2014 Blood culture Specimen: PICC; Blood Result Value Ref Range Specimen Description Blood PICC Special Requests Aerobic and anaerobic bottles received Culture Micro No growth Micro Report Status FINAL 01/27/2014 Results for orders placed or performed during the hospital encounter of 01/19/14 Blood culture ONE site Specimen: PICC; Blood Result Value Ref Range Specimen Description Blood PICC Culture Micro (A) Cultured on the 2nd day of incubation: Staphylococcus epidermidis Critical Value, preliminary result only, called to and read back by Mary Pozo RN 01/21/14 @0014 AV Micro Report Status FINAL 01/23/2014 Susceptibility Cultured on the 2nd day of incubation: staphylococcus epidermidis ([place]) - (no method available) Ciprofloxacin <=0.5 Susceptible ug/mL Clindamycin >=8 Resistant ug/mL Erythromycin >=8 Resistant ug/mL Gentamicin <=0.5 Susceptible ug/mL Levofloxacin <=0.12 Susceptible ug/mL Oxacillin >=4 Resistant ug/mL Penicillin >=0.5 Resistant ug/mL Tetracycline 2 Susceptible ug/mL Vancomycin 2 Susceptible ug/mL Trimethoprim/Sulfamethoxazole Value in next row ug/mL <=0.5/9.5 Susceptible *Note: Due to a large number of results and/or encounters for the requested time period, some results have not been displayed. A complete set of results can be found in Results Review. Urine culture: Results for orders placed or performed during the hospital encounter of 01/08/24 Urine Culture Specimen: Urine, Midstream Result Value Ref Range Culture <10,000 CFU/mL Mixture of Urogenital Loan Results for orders placed or performed during the hospital encounter of 11/23/23 Urine Culture Specimen: Urine, Clean Catch Result Value Ref Range Culture <10,000 CFU/mL Mixture of Urogenital Loan Results for orders placed or performed during the hospital encounter of 11/10/23 Urine Culture Specimen: Urine, Clean Catch Result Value Ref Range Culture <10,000 CFU/mL Urogenital loan Results for orders placed or performed during the hospital encounter of 11/09/23 Urine Culture Specimen: Urine, Clean Catch Result Value Ref Range Culture No Growth Results for orders placed or performed during the hospital encounter of 10/28/23 Urine Culture Specimen: Urine, Clean Catch Result Value Ref Range Culture <10,000 CFU/mL Urogenital loan Urine Culture Specimen: Urine, Midstream Result Value Ref Range Culture <10,000 CFU/mL Urogenital loan Results for orders placed or performed during the hospital encounter of 10/23/23 Urine Culture Specimen: Urine, Midstream Result Value Ref Range Culture No Growth Results for orders placed or performed during the hospital encounter of 09/04/23 Urine Culture Specimen: Urine, Midstream Result Value Ref Range Culture 50,000-100,000 CFU/mL Mixture of urogenital loan Results for orders placed or performed during the hospital encounter of 06/18/23 Urine Culture Specimen: Urine, Midstream Result Value Ref Range Culture >100,000 CFU/mL Mixture of urogenital loan Results for orders placed or performed during the hospital encounter of 01/04/23 Urine Culture Specimen: Urine, Clean Catch Result Value Ref Range Culture 50,000-100,000 CFU/mL Mixture of urogenital loan Results for orders placed or performed during the hospital encounter of 04/17/21 Urine Culture Aerobic Bacterial Specimen: Midstream Urine Result Value Ref Range Specimen Description Midstream Urine Special Requests Specimen received in preservative Culture Micro 50,000 to 100,000 colonies/mL mixed urogenital loan Susceptibility testing not routinely done Results for orders placed or performed during the hospital encounter of 08/01/19 Urine Culture Aerobic Bacterial Specimen: Midstream Urine Result Value Ref Range Specimen Description Midstream Urine Special Requests Specimen received in preservative Culture Micro No growth Results for orders placed or performed during the hospital encounter of 07/27/16 Urine Culture Aerobic Bacterial Specimen: Urine Result Value Ref Range Specimen Description Midstream Urine Special Requests Specimen received in preservative Culture Micro 50,000 to 100,000 colonies/mL mixed urogenital loan Micro Report Status FINAL 07/28/2016 Results for orders placed or performed during the hospital encounter of 12/09/15 Urine Culture Aerobic Bacterial Result Value Ref Range Specimen Description Midstream Urine Special Requests Specimen received in preservative Culture Micro No growth Micro Report Status FINAL 12/10/2015 Results for orders placed or performed during the hospital encounter of 03/26/14 Urine culture Result Value Ref Range Specimen Description Midstream Urine Special Requests Specimen received in preservative Culture Micro (A) 50,000 to 100,000 colonies/mL Beta hemolytic Streptococcus group B Group B Streptococcus may be significant in OB patients, however, it is part of the normal urogenital loan. Group B Streptococci are susceptible to ampicillin, penicillin, and cefazolin, but may be erythromycin and/or clindamycin resistant. Contact Microbiology if your patient is allergic to penicillin and you need erythromycin and/or clindamycin testing to be performed. Clindamycin and Erythromycin are not routinely prescribed for isolates from the urinary tract. Susceptibility testing must be requested within 5 days. 50,000 to 100,000 colonies/mL Mixed gram negative and positive loan Multiple species present, probable perineal contamination. Micro Report Status FINAL 03/29/2014 Results for orders placed or performed during the hospital encounter of 03/20/14 Urine culture Result Value Ref Range Specimen Description Midstream Urine Special Requests Specimen received in preservative Culture Micro 10,000 to 50,000 colonies/mL Mixed gram positive and gram negative bacteria present. Multiple species present, probable perineal contamination. Micro Report Status FINAL 03/22/2014 Results for orders placed or performed during the hospital encounter of 01/21/14 Urine culture Specimen: Urine clean catch Result Value Ref Range Specimen Description Midstream Urine Special Requests Specimen received in preservative Culture Micro 50,000 to 100,000 colonies/mL Mixed gram positive loan Multiple species present, probable perineal contamination. Susceptibility testing not routinely done Micro Report Status FINAL 01/23/2014 *Note: Due to a large number of results and/or encounters for the requested time period, some results have not been displayed. A complete set of results can be found in Results Review. * Radha Mccormack RD - 03/07/2024 10:38 AM CDT CLINICAL NUTRITION SERVICES - ASSESSMENT NOTE RECOMMENDATIONS FOR MD/PROVIDER TO ORDER: Patient w/ very poor PO intakes/tolerance since May - only taking soft/liquid foods, limited protein, and emesis multiple times/day. Consider nutrition support - can also be initiated as outpatient if indicated - patient reports following w/ PCP regularly. Recommendations Ordered by Registered Dietitian (RD): Ordered daily weights d/t questionable weight history with what appears to be many reported/inaccurate weights [place] chewable vitamin Gelatein Plus pineapple once daily Future/Additional Recommendations: Monitor PO intakes/tolerance Malnutrition: % Weight Loss: difficult to assess - weight recordings appear inaccurate, patient also w/ fluid shifts (possibly r/t malnutrition) % Intake: </= 75% for >/= 1 month (severe malnutrition) Subcutaneous Fat Loss: Orbital region moderate depletion and Upper arm region moderate depletion Muscle Loss: Temporal region moderate depletion and Clavicle bone region mild depletion - bilateralLE in compression device, patient notes losses although unable to palpate at this time Fluid Retention: Moderate in bilateral hands Malnutrition Diagnosis: Moderate malnutrition In Context of: Chronic illness or disease REASON FOR ASSESSMENT Sandi Lopez is a 38 year old female seen by Registered Dietitian for Admission Nutrition Risk Screen for positive. PMH: POTS requiring central access currently with a port in place as of 02/03, multiple episodes of bacteremia and line infections of unclear infectious nidus, chronic back pain with previous lumbar discectomy for herniation, chronic pain syndrome, anxiety, MDD, borderline personality disorder, gastroparesis, nephrolithiasis, iron deficiency anemia, GERD, obesity, and suspected opiate/benzodiazepine depe ndence who presents with chronic low back pain from previous surgery for disc herniation. She has had ongoing issues with nausea and vomiting from her gastroparesis. NUTRITION HISTORY - Information obtained from patient - Gastroparesis since May 2023 after taking Ozempic from December 2022 - end April 2023 - Patient follows w/ GI Dr. Alvares, does not see RD. States that her PCP has been consulting appropriate services as they are unsure how to manage - Soft/liquids only tolerated - smoothies, avocados, cream of wheat, cream soups, yogurt previouslywell tolerated - not so much as of recently - Tries to take protein shakes at home but too sweet and upset her stomach, she does not add protein powder into shakes d/t expense. Has historically used and liked Beneprotein at previous hospital admissions - Takes [employer] chewable multivitamin - Emesis a couple times/day since May 2023 - IVF 3x/week 1L normal saline - per patient report - Offered FT since July per patient, she has declined it in hopes that her gastroparesis will resolve, but now she is more open to consideration as she has been dealing with this x months and having difficulty w/ lethargy 2/2 malnutrition CURRENT NUTRITION ORDERS Diet Order: Orders Placed This Encounter Regular Diet Adult Current Intake/Tolerance: Poor PO intakes, emesis multiple times per day, limited protein intakes d/t poor tolerance and liquid diet. NUTRITION FOCUSED PHYSICAL ASSESSMENT FOR DIAGNOSING MALNUTRITION) Yes Observed: Muscle wasting (refer to documentation in Malnutrition section), Subcutaneous fat loss (refer to documentation in Malnutrition section), and Lackluster hair - patient notes hair loss - white lips and lower eyelids 2/2 anemia ANTHROPOMETRICS Height: 5' 6 Weight: 237 lbs 14.02 oz Body mass index is 38.39 kg/m??. Weight Status: Obesity Grade II BMI 35-39.9 Weight History: Many weights below appear reported, suspect true weight is closer to 108 kg. Patient notes 100# weight loss since December 2022, initially intentional, then unintentional once she stopped Ozempic in May 2023. Patient notes occasional edema at home off/on. 03/05/242052 88.5 kg (195 lb) -- Wt Readings from Last 10 Encounters: 03/06/24 107.9 kg (237 lb 14 oz) 03/01/24 88.5 kg (195 lb) 02/17/24 107.2 kg (236 lb 5.3 oz) 02/11/24 86.2 kg (190 lb) 01/09/24 88.5 kg (195 lb) 01/04/24 90.7 kg (200 lb) 12/18/23 99.3 kg (219 lb) 12/12/23 99.8 kg (220 lb) 12/07/23 102.5 kg (226 lb) 11/24/23 107.8 kg (237 lb 10.5 oz) LABS Labs reviewed Labs: Electrolytes Potassium (mmol/L) Date Value 03/06/2024 3.4 03/05/2024 3.2 (L) 03/02/2024 3.9 01/08/2022 4.1 09/14/2021 4.4 08/17/2021 3.0 (L) 05/26/2021 4.3 04/17/2021 4.4 01/24/2021 4.2 Phosphorus (mg/dL) Date Value 07/28/2023 2.7 06/10/2023 3.8 06/09/2023 3.3 05/04/2023 2.8 12/11/2013 4.1 12/09/2013 5.0 (H) 12/08/2013 5.1 (H) 12/07/2013 5.1 (H) 12/06/2013 4.4 Blood Glucose Glucose (mg/dL) Date Value 03/06/2024 128 (H) 03/05/2024 106 (H) 03/02/2024 135 (H) 02/17/2024 111 (H) 02/11/2024 117 (H) 01/08/2022 110 (H) 09/14/2021 131 (H) 08/17/2021 98 08/15/2021 123 (H) 07/25/2021 108 (H) 05/26/2021 102 (H) 04/17/2021 115 (H) 01/24/2021 106 (H) 12/28/2020 113 (H) 12/27/2020 100 (H) GLUCOSE BY METER POCT (mg/dL) Date Value 12/06/2023 109 (H) 11/28/2023 105 (H) 11/27/2023 114 (H) Hemoglobin A1C (%) Date Value 08/14/2023 5.1 01/01/2023 5.7 (H) Inflammatory Markers CRP Inflammation (mg/L) Date Value 03/01/2020 27.6 (H) 02/29/2020 20.9 (H) 05/02/2019 24.2 (H) WBC (10e9/L) Date Value 05/26/2021 7.8 04/17/2021 9.5 01/24/2021 11.7 (H) WBC Count (10e3/uL) Date Value 03/06/2024 10.8 03/05/2024 12.9 (H) 03/02/2024 10.0 Albumin (g/dL) Date Value 03/05/2024 3.9 01/15/2024 4.5 01/10/2024 4.3 08/15/2021 3.1 (L) 07/25/2021 4.1 05/26/2021 3.5 04/17/2021 3.2 (L) 01/24/2021 3.6 Magnesium (mg/dL) Date Value 03/06/2024 1.7 03/05/2024 1.8 01/01/2024 2.0 07/27/2016 2.4 (H) 12/11/2013 1.8 12/09/2013 1.9 Sodium (mmol/L) Date Value 03/06/2024 137 03/05/2024 137 03/02/2024 135 05/26/2021 136 04/17/2021 137 01/24/2021 137 Renal Urea Nitrogen (mg/dL) Date Value 03/06/2024 3.8 (L) 03/05/2024 4.3 (L) 03/02/2024 12.5 01/08/2022 11 09/14/2021 10 08/17/2021 9 05/26/2021 10 04/17/2021 9 01/24/2021 7 Creatinine (mg/dL) Date Value 03/06/2024 0.73 03/05/2024 0.63 03/02/2024 0.72 05/26/2021 0.77 04/17/2021 0.62 01/24/2021 0.56 Additional Triglycerides (mg/dL) Date Value 01/01/2023 196 (H) 11/03/2011 115 11/02/2011 144 Ketones Urine (mg/dL) Date Value 03/06/2024 Negative 05/26/2021 Negative MEDICATIONS Medications reviewed Current Facility-Administered Medications Medication Dose Route Frequency Provider Last Rate Last Admin acetaminophen (TYLENOL) tablet 975 mg 975 mg Oral 4x Daily Carlos Vila MD 975 mg at 03/07/24 0818 [Held by provider] apixaban ANTICOAGULANT (ELIQUIS) tablet 5 mg 5 mg Oral BID Ady Thurston MD ceFAZolin (ANCEF) 2 g in 100 mL D5W intermittent infusion 2 g Intravenous Q8H Ady Thurston MD 200 mL/hr at 03/07/24 0558 2 g at 03/07/24 0558 folic acid (FOLVITE) tablet 1 mg 1 mg Oral Daily Ady Thurston MD 1 mg at 03/07/24 0818 gabapentin (NEURONTIN) capsule 800 mg 800 mg Oral TID Ady Thurston MD 800 mg at 03/07/24 0817 Lidocaine (LIDOCARE) 4 % Patch 1 patch 1 patch Transdermal Q24H Ady Thurston MD 1 patch at 03/07/24 0625 sodium chloride (PF) 0.9% PF flush 3 mL 3 mL Intracatheter Q8H Ady Thurston MD 3 mL at 03/07/24 0033 Current Facility-Administered Medications Medication Dose Route Frequency Provider Last Rate Last Admin Current Facility-Administered Medications Medication Dose Route Frequency Provider Last Rate Last Admin calcium carbonate (TUMS) chewable tablet 1,000 mg 1,000 mg Oral 4x Daily PRN Ady Thurston MD cyclobenzaprine (FLEXERIL) tablet 10 mg 10 mg Oral TID PRN Ady Thurston MD diphenhydrAMINE (BENADRYL) capsule 25 mg 25 mg Oral Q6H PRN Ady Thurston MD HYDROmorphone (DILAUDID) tablet 2 mg 2 mg Oral Q3H PRN Ady Thurston MD HYDROmorphone (DILAUDID) tablet 4 mg 4 mg Oral Q3H PRN Ady Thurston MD 4 mg at 03/07/24 0857 lidocaine (LMX4) cream Topical Q1H PRN Ady Thurston MD lidocaine 1 % 0.1-1 mL 0.1-1 mL Other Q1H PRN Ady Thurston MD LORazepam (ATIVAN) injection 0.5 mg 0.5 mg Intravenous Q4H PRN Ady Thurston MD LORazepam (ATIVAN) tablet 1 mg 1 mg Oral Q4H PRN Ady Thurston MD 1 mg at 03/07/24 0625 melatonin tablet 5 mg 5 mg Oral At Bedtime PRN Ady Thurston MD naloxone (NARCAN) injection 0.2 mg 0.2 mg Intravenous Q2 Min PRN Carlos Vila MD Or naloxone (NARCAN) injection 0.4 mg 0.4 mg Intravenous Q2 Min PRN Carlos Vila MD Or naloxone (NARCAN) injection 0.2 mg 0.2 mg Intramuscular Q2 Min PRN Carlos Vila MD Or naloxone (NARCAN) injection 0.4 mg 0.4 mg Intramuscular Q2 Min PRN Carlos Vila MD polyethylene glycol (MIRALAX) Packet 17 g 17 g Oral BID PRN Ady Thurston MD senna-docusate (SENOKOT-S/PERICOLACE) 8.6-50 MG per tablet 1 tablet 1 tablet Oral BID PRN Ady Thurston MD Or senna-docusate (SENOKOT-S/PERICOLACE) 8.6-50 MG per tablet 2 tablet 2 tablet Oral BID PRN Ady Thurston MD sodium chloride (PF) 0.9% PF flush 3 mL 3 mL Intracatheter q1 min prn Ady Thurston MD zolpidem (AMBIEN) tablet 10 mg 10 mg Oral At Bedtime PRN Ady Thurston MD 10 mg at 03/07/24 0024 ASSESSED NUTRITION NEEDS PER APPROVED PRACTICE GUIDELINES: Dosing Weight 108 kg (current weight) Estimated Energy Needs: 7433-7472 kcals (20-25 Kcal/Kg) Justification: repletion and obese - would aim for low-end estimated needs Estimated Protein Needs: 130-162 grams protein (1.2-1.5 g pro/Kg) Justification: Repletion and hypercatabolism with acute illness Estimated Fluid Needs: per provider pending fluid status NUTRITION DIAGNOSIS: Altered GI function related to gastroparesis as evidenced by nausea/vomiting x9 months, intoleranceof solid foods. NUTRITION INTERVENTIONS Recommendations / Nutrition Prescription See top of note. Implementation Nutrition education: Provided education on savory/soft food options such as bone broth and mashed potatoes Composition of Meals and Snacks and Medical Food Supplement Nutrition Goals Maintain weight Nutrition support if within GOC and patient unable to meet >75% estimated caloric and protein needs orally MONITORING AND EVALUATION: Progress towards goals will be monitored and evaluated per protocol and Practice Guidelines Radha Mccormack RDN, LD * Jake Gill PA-C - 03/07/2024 9:59 AM CDT Neurosurgery Progress Dx: Possible L4-L5 osteomyelitis. Back pain. Neuro stable. TODAY'S PLAN: Plan: -No surgical intervention indicated - will sign off. -ID consulted. -Advance activity as tolerated. -Continue supportive and symptomatic treatment. -Continue physical therapy. -Pain controled. -Advance diet as tolerated. In the event that patient's symptoms worsen or change we would appreciate being contacted. We did discuss signs of a worsening problem that she should seek being evaluated. We did review the above information with the patient whom agrees with the plan and did verbalize understanding. BP 128/73 (BP Location: Right arm, Patient Position: Left side) Pulse 114 Temp 99.9 ??F (37.7 ??C) (Temporal) Resp 20 Ht 1.676 m (5' 6) Wt 107.9 kg (237 lb 14 oz) LMP 12/10/2017 SpO2 95% BMI 38.39 kg/m?? Pt in bed. Appears comfortable and in no apparent distress, moving all extremities. CN II-XII intact, alert and appropriate with conversation and following commands. Bilateral upper and lower extremities with appropriate strength. DTR's WNL. Spine is non tender to palpation throughout. Sensation intact throughout. Acceptable ROM. Calves soft and non-tender bilaterally. All pertinent labs and updated imaging reviewed in [facility]. Brian Gill PA-C Neurosurgery * Nazario Howard MD - 03/06/2024 8:46 PM CDT Cross cover. Notified hemoglobin done from earlier this evening came back at 7.6. -Noted is trending down from 9.5 yesterday, it was 12.3 about 4 days ago, significant drop in the last 5 days. -Eliquis was on hold. -Typed and screened. -Will prepare 2 units -Ordered repeat hemoglobin. -Transfuse if hemoglobin is less than 7. Addendum. RN stated that patient stated for transfusion, she needs a special order and to look at hematology note. Needs to clarify this prior to transfusing her. * Carlos Vila MD - 03/06/2024 9:54 AM CDT [facility] Medicine Progress Note - Hospitalist Service Date of Admission: 03/05/2024 Primary Care Physician Segundo Mcclelland CONSULTANTS: ID, neurosurgery Assessment & Plan History of Present Illness: Sandi Lopez is a 38 year old female with a complicated past medical history including POTS requiring central access currently with a port in place as of 02/03, multiple episodes of bacteremia and line infections of unclear infectious nidus, chronic back pain with previous lumbar discectomy for herniation, chronic pain syndrome, anxiety, MDD, borderline personality disorder, gastroparesis, nephrolithiasis, iron deficiency anemia, GERD, obesity, and suspected opiate/benzodiazepine dependence who presents with severe back pain. She reports chronic low back pain from previous surgery for disc herniation. She was seen in the ER on 02/25 and 03/02 for acute on chronic low back pain along with numbness down the left side and reported leg weakness. She had a lumbar MRI that showed L4-L5 opposing endplate edema with associated has been that could be osteomyelitis although felt to be less likely overall based on the imaging. Neurosurgery was contacted recommended following inflammatory markers. Her CRP was high at that time as was ESR she had blood cultures drawn. Peripheral blood culture now positive for strep mitis. She is returning now for further treatment and workup. The pain is nowsevere in the low back. She cannot find any comfortable position. She has been taking [id number] mg in a day and oral Dilaudid at home without any improvement. Reports similar paresthesias and weakness to previous. She has had ongoing issues with nausea and vomiting from her gastroparesis. She felt absolutely terrible throughout the day today and had shaking chills for about 90 minutes this morning. She did not check her temperature, but she was sweaty as well after this. She denies anynew dysuria or hematuria. No new cough or shortness of breath. History obtained from patient, medical record, and from CLAIR Cronin in the emergency department. Blood pressure 160/79 then 109/70, tachycardic 113 then 99, temperature 98.9 ??F, oxygen 90% on room air. Potassium low at 3.2 otherwise BMP unremarkable. CRP elevated at 142 as is ESR 37. Lactic acid normal at 1.3. WBC 12.9, drop in hemoglobin to 9.5, platelet count 239. Stool occult blood is negative. Previous lumbar spine shows possible L4-5 osteomyelitis although this could be from degenerative change. She received 2 g IV Ancef, oral Dilaudid 2 mg, 1 L NS, 40 g oral potassium but she could not tolerate this due to vomiting, and a dose of Eliquis. Admit inpatient with ID and neurosurgery consultation. Severe acute on chronic low back pain, possible L4-L5 osteomyelitis Chronic pain syndrome Strep mitis bacteremia, possible infected port Possible odontogenic source Hx bacteremia, ESBl, fungemia: Patient with a history of chronic back pain with previous discectomy, no hardware in place. Severely worsening back pain in the past few days despite oral Dilaudid. Reporting rigors 03/05/24 and she did have a positive blood culture from the ER on 03/02 for strep mitis. Neurosurgery recommended lumbar MRI which was done on 03/02 that showing opposing endplate edema L4-L5, but no enhancement of the intervertebral disc or abnormal single in the paraspinous tissues so infection seems less likely based on imaging alone and could represent degenerative Modic type I change per radiology. However, given that she had rigors, bacteremia, port in place, self-reported severely worsening pain, and CRP now rising to 142 from 112 few days prior to admission and ESR 37 from 18 infection involving the spine ispossible. Also has a new leukocytosis of 12.9. She does have chronic pain and has had numerous short-term prescriptions over the past many months for oral Dilaudid along with exhibiting symptoms and b ehavior of pain out of proportion to what would be suspected from previous spine imaging while herein the hospital. However, if she has acute osteomyelitis then this certainly would result in severepain in any individual. Anaphylaxis allergy listed NSAID. She reports taking 4500 mg of acetaminophen at a time (send off lfts). Seen in the ER 02/10, 02/16x2, 02/25, 03/02 for chest pain and then back pain. -Previous bacteremia infections: -April 2023 blood cultures growing Strep anginosus, Staph aureus, Staph hominis, strep mitis -10/23/2023 ESBL Klebsiella pneumoniae cultures positive x 2. Line associated -10/28/2023 Enterobacter [place] complex and Enterococcus faecalis positive cultures -11/09/2023 Anderson like the Lyrica and Anderson dubliniensis blood cultures. Port removed then -01/08/2024 positive culture for Actinomyces odontolyticus, not treated and felt to be contaminant. No line in place then. -now 03/02/2024 peripheral blood culture positive for strep mitis Based on the types of bacteria in the setting of central line placement this does bring up the possibility of insufficient treatment of previous infections, bad teeth, or possible self inoculation. Alternatively, there are multiple oral loan organisms previously growing in her blood and she reports having a cracked right upper molar that intermittently drains some fluid which could be a source for ongoing intermittent bacteremia. She does have a cracked tooth on exam that is not currently actively draining. She has not had the tooth pulled or fixed due to not having dental insurance. Placed on IV Ancef 2 g every 8 hours covering the strep mitis bacteremia, ID to see. Also neurosurgery to see. Given her history, goal from my point of view would be not to do surgery and most certainly should not have any hardware placed. Will need to follow blood cultures, fever curve. Continue on Acetaminophen 1000 mg every 6 hours as needed for mild pain. Oral Dilaudid 2 mg for moderate and 4 mg for severe pain every 3 hours as needed, Flexeril 10 mg 3 times daily as needed for muscle spasms. Holding Eliquis initially in case of need for potential bone biopsy or surgery. If persistent bacteremia then would need to consider port removal, defer to ID. Will need outpatient follow up with oral surgery or dentistry as the source could be her teeth. We do not have oral surgery to comes to [facility]. History PEs, chronic anticoagulation: History PEs, most recently November 2023. Chronically on Eliquis 5 mg twice daily which is being held initially in case of need for bone biopsy or procedure in addition to her acutely worsening anemia. Last dose evening 03/05 in the ER. PCD's Acute on chronic anemia: Hemoglobin dropping to 9.5 from a baseline of 11-12. She has chronic iron deficiency anemia. She jackie Eliquis, but denies any blood loss. Stool occult blood is negative. Suspect in part related to the acute inflammatory response evidenced by high CRP in the setting of bacteremia possible osteomyelitis. CBC and type and screen in the morning . Holding Eliquis initially as above Hypokalemia: Potassium low at 3.2. Has chronic issues with vomiting. Was not tolerating oral potassium in the ER. Placed on replacement Gastroparesis, Nausea, vomiting: Reports history of gastroparesis secondary previous Ozempic use. She has chronic nausea and vomiting. She has allergies listed to Compazine, Zofran, metoclopramide, and Phenergan. This many allergiesto different antinausea medications is extremely unlikely in any 1 person. She has issues with anxiety that she self-reports is severely worse in the hospital and per chart review also has issues with concerns for benzodiazepine abuse in the past. Based on thorough chart review by my partner, we dosuspect the allergies listed are in part a way to receive IV lorazepam for refractory nausea in addition to IV pain medications in the hospital. IV lorazepam 0.5 mg every 4 hours as needed for refractory nausea and vomiting., POTS: Chronic issues with syncope and near syncopal episodes with previous diagnosis of POTS. She says she is post to get IV fluids twice per week and this is why she has had PICC line and ports in the past. Port removed in October 2023 for bacteremia/fungemia. Port replaced 02/04/2024. Seen in the ER 01/18, 01/19, 01/27, 01/28 for syncope. IV fluid boluses as needed while here for symptoms Anxiety MDD Borderline personality disorder Insomnia Drug seeking behavior: These are the diagnoses listed in her previous medical history, unclear if previously diagnosed by a psychiatrist. She has had multiple prescriptions in the past for 1 mg oral lorazepam as needed foranxiety. She informs me that her anxiety is through the roof when she is hospitalized and will needmedication for this. She also takes Ambien 10 mg at night as needed. Resume Ambien, Oral lorazepam as needed for anxiety. Need to watch for drug seeking behavior for benzos/opiates. Also I did let the patient know we are worried about self injurious behavior given her multiple blood cultures with multiple different organisms. Concern would be for possible Munchhausen's. Patient denies self injecting or trying to harm herself. Obesity: BMI 31.4, complicates cares History nephrolithiasis DVT Prophylaxis: Pneumatic Compression Devices Code Status: Full Code FEN: Regular diet Lines: Right chest port Discharge Dispo: TBD. May need weeks of IV antibiotics. Estimated Disch Date / # of Days until Disch: Admit inpatient for bacteremia and potential lumbar osteomyelitis. Anticipate multiple day hospitalization. Clinically Significant Risk Factors Present on Admission # Hypokalemia: Lowest K = 3.2 mmol/L in last 2 days, will replace as needed # Drug Induced Coagulation Defect: home medication list includes an anticoagulant medication # Obesity: Estimated body mass index is 31.47 kg/m?? as calculated from the following: Height as of this encounter: 1.676 m (5' 6). Weight as of this encounter: 88.5 kg (195 lb). # Financial/Environmental Concerns: has not sought the care of a dentist due to cost and lack of insurance coverage Discussed plan of care with nursing in the emergency room, Dr Thurston admitting RESTRAINTS: not indicated Code Status: Full Code Follow up plan: Needs to see oral surgery vs dentist as outpatient This document was created using voice recognition technology. Please excuse any typographical errors that may have occurred. Please call with any questions. Disposition Plan Expected Discharge Date: 03/07/2024 Destination: home;home with family;home with help/services Barrier to discharge: will need ongoing IV antibiotics, ID and neurosurgery to see. Carlos Vila MD Hospitalist Service [facility] Securely message with Kimani (more info) Text page via [facility] Paging/Directory Interval History Patient seen in the emergency room as no bed available as of yet. She continues to have back pain. No current fever or rigors. She does have a right port in place. No complaints of redness or pain atthe site. Discussed my concern about self injecting, drug use, etc. She denies injecting anything, denies IV drug use. States she cares for her disabled child at home. States she has a bad tooth thatdrains at times. ROS: A comprehensive review of systems was negative except for items noted in the HPI. Patient currently denies any fever, chills, sweats, nausea, vomiting, diarrhea, shortness of breath, or chest pain. Physical Exam Vital Signs: Temp: 97.6 ??F (36.4 ??C) Temp src: Oral BP: 107/74 Pulse: 64 Resp: 16 SpO2: 96 % O2 Device: None (Room air) Weight: 195 lbs 0 oz General appearance: Patient is alert and oriented x3, no apparent distress, pleasant and conversingnormally, speaking in full sentences, appears stated age, sitting up in bed, slow to respond, not currently moaning HEENT: Mucous membranes are moist NECK: supple without bruit or lymphadenopathy RESPIRATORY: Clear to auscultation bilateral, good air movement CARDIOVASCULAR: Regular rate and rhythm, normal S1/S2, no murmurs GASTROINTESTINAL: obese, Non-distended, non-tender, soft, bowel sounds present throughout, NEUROLOGIC: Cranial nerves II-XII intact, without any focal deficits EXTREMITIES: Moves all extremities, no clubbing, cyanosis, nor edema : Garcia not present Data I have personally reviewed the following data over the past 24 hrs: 12.9 (H) \ 9.5 (L) / 239 137 100 4.3 (L) / 106 (H) 3.2 (L) 23 0.63 \ Procal: N/A CRP: 142.72 (H) Lactic Acid: 1.3 Imaging: Results for orders placed or performed during the hospital encounter of 03/02/24 MR Lumbar Spine w/o & w Contrast Narrative EXAM: MR LUMBAR SPINE W/O and W CONTRAST LOCATION: [facility] DATE: 03/02/2024 INDICATION: low back pain and patient reporting saddle anesthesia COMPARISON: Plain radiographs 12/19/2023. CONTRAST: 9ML LEONARDA TECHNIQUE: Routine Lumbar Spine MRI without and with IV contrast. FINDINGS: Nomenclature is based on 5 lumbar type vertebral bodies. Normal vertebral body heights and alignment. Mixed Modic type I and type II changes with associated contrast enhancement at the opposing [id number]. No abnormal contrast enhancement in the intervertebral disc. Normal distal spinal cord and cauda equina with conus medullaris at T12-L1. Noextraspinal abnormality. Unremarkable visualized bony pelvis. T12-L1: Normal [...] No spinal canal or neural foraminal stenosis. Impression IMPRESSION: 1. Multilevel lumbar spondylosis without high-grade [...] suspicion for discitis osteomyelitis, recommend follow-up imaging. *Note: Due to a large number of results and/or encounters for the requested time period, some results have not been displayed. A complete set of results can be found in Results Review. Procedures: none I have personally have reviewed the patient's most up to date radiologic exams, labs, orders, and medications myself documented in this encounter H&P Notes * Ady Thurston MD - 03/05/2024 11:[address] [facility] Hospitalist Admission Note Name: Sandi Lopez Date of : 1985 Age: [age] year old Date of admission: 03/05/2024 Primary care provider: Segundo Mcclelland Chief Complaint: back pain, chills Assessment and Plan: Severe acute on chronic low back pain, possible L4-L5 osteomyelitis Chronic pain syndrome Strep mitis bacteremia, possible infected port Possible odontogenic source Hx bacteremia, ESBl, fungemia: History of chronic back pain with previous discectomy, no hardware in place. Severely worsening back pain in the past few days despite oral Dilaudid. Reporting rigors this morning and she did have a positive blood culture from the ER on 03/02 for strep mitis. Neurosurgery recommended lumbar MRI which was done on 03/02 that shows opposing endplate edema and associated hands been at L4-L5, but no enhancement of the intervertebral disc or abnormal single in the paraspinous tissues so infection seems less likely based on imaging alone and could represent degenerative Modic type I change per radiology. However, given that she has rigors, bacteremia, port in place, self-reported severely worsening pain, and CRP now rising to 142 from 112 few days ago and ESR 37 from 18 infection involving the spine is possible. Also has a new leukocytosis of 12.9. She does have chronic pain and has had numerous short-term prescriptions over the past many months for oral Dilaudid along with exhibiting symptoms and behavior of pain out of proportion to what would be suspected fromprevious spine imaging while here in the hospital. However, if she has acute osteomyelitis then this certainly would result in severe pain in any individual. Anaphylaxis allergy listed NSAID. She reports taking 4500 mg of acetaminophen at a time. Seen in the ER 02/10, 02/16x2, 02/25, 03/02 for chest pain and then back pain. -Previous bacteremia infections: -April 2023 blood cultures growing Strep anginosus, Staph aureus, Staph hominis, strep mitis -10/23/2023 ESBL Klebsiella pneumoniae cultures positive x 2. Line associated -10/28/2023 Enterobacter [place] complex and Enterococcus faecalis positive cultures -11/09/2023 Anderson like the Lyrica and Anderson dubliniensis blood cultures. Port removed then -01/08/2024 positive culture for Actinomyces odontolyticus, not treated and felt to be contaminant. No line in place then. -now 03/02/2024 peripheral blood culture positive for strep mitis Based on the types of bacteria in the setting of central line placement this does bring up the possibility of insufficient sterile lying care or possible self inoculation. Alternatively, there are multiple oral loan organisms previously growing in her blood and she reports having a cracked right upper molar that intermittently drains some fluid which could be a source for ongoing intermittent bacteremia. She does have a cracked tooth on exam that is not currently actively draining. She has nothad the tooth pulled or fixed due to not having dental insurance. -IV Ancef 2 g every 8 hours covering the strep mitis bacteremia -Consult infectious disease -Consult neurosurgery -Ordered 2 sets of blood cultures, CRP, sed rate to be drawn morning of 03/07 -Eventual follow-up with oral surgeon for the cracked right upper molar and for thorough dental exam to look for other source of infection nidus -Acetaminophen 1000 mg every 6 hours as needed for mild pain. Oral Dilaudid 2 mg for moderate and 4mg for severe pain every 3 hours as needed, Flexeril 10 mg 3 times daily as needed for muscle spasms -Holding Eliquis initially in case of need for potential bone biopsy or surgery. -If persistent bacteremia then would need to consider port removal, defer to ID Hx PEs: hx PEs, most recently November 2023. Chronically on Eliquis 5 mg twice daily. -Hold Eliquis initially in case of need for bone biopsy or procedure in addition to her acutely worsening anemia. Last dose evening 03/05 in the ER. PCD's Acute on chronic anemia: Hemoglobin dropping to 9.5 from a baseline of 11-12. She has chronic iron deficiency anemia. She is on Eliquis, but denies any blood loss. Stool occult blood is negative. Suspect in part related to the acute inflammatory response evidenced by high CRP in the setting of bacteremia possible osteomyelitis. -CBC and type and screen in the morning -Holding Eliquis initially as above Hypokalemia: Potassium low at 3.2. Has chronic issues with vomiting. Was not tolerating oral potassium in the ER. -IV potassium 20 meq every 1 hour x 2 via port -Check BMP and magnesium in the morning Gastroparesis Nausea, vomiting: Reports history of gastroparesis secondary previous Ozempic use. She has chronic nausea and vomiting. She has allergies listed to Compazine, Zofran, metoclopramide, and Phenergan. This many allergies to different nausea medications is extremely unlikely in any 1 person. She has issues with anxiety that she self-reports is severely worse in the hospital and per chart review also has issues with concerns for benzodiazepine abuse in the past. Based on thorough chart review in addition to my encounter with her in the ER, I do suspect the allergies listed are in part a way to receive IV lorazepam for refractory nausea in addition to IV pain medications in the hospital. -IV lorazepam 0.5 mg every 4 hours as needed for refractory nausea and vomiting POTS: Chronic issues with syncope and near syncopal episodes with previous diagnosis of POTS. She says she is post to get IV fluids twice per week and this is why she has had PICC line and ports in the past. Port removed in October 2023 for bacteremia/fungemia. Port replaced 02/04/2024. Seen in the ER 01/18, 01/19, 01/27, 01/28 for syncope. -IV fluid boluses as needed while here for symptoms Anxiety MDD Borderline personality disorder Insomnia: These are the diagnoses listed in her previous medical history, unclear if previously diagnosed by a psychiatrist. She has had multiple prescriptions in the past for 1 mg oral lorazepam as needed for anxiety. She informs me that her anxiety is through the roof when she is hospitalized andwill need medication for this. She also takes Ambien 10 mg at night as needed. -Resume Ambien -Oral lorazepam 1 mg every 4 hours as needed for anxiety Obesity: BMI 31.4 History nephrolithiasis DVT Prophylaxis: Pneumatic Compression Devices Code Status: Full Code FEN: Regular diet Lines: Right chest port Discharge Dispo: TBD. May need weeks of IV antibiotics. Estimated Disch Date / # of Days until Disch: Admit inpatient for bacteremia and potential lumbar osteomyelitis. Anticipate multiple day hospitalization. History of Present Illness: Sandi Lopez is a 38 year old female with a complicated past medical history including POTS requiring central access currently with a port in place as of 02/03, multiple episodes of bacteremia and line infections of unclear infectious nidus, chronic back pain with previous lumbar discectomy for herniation, chronic pain syndrome, anxiety, MDD, borderline personality disorder, gastroparesis, nephrolithiasis, iron deficiency anemia, GERD, obesity, and suspected opiate/benzodiazepine dependence who presents with severe back pain. She reports chronic low back pain from previous surgery for disc herniation. She was seen in the ER on 02/25 and 03/02 for acute on chronic low back pain along with numbness down the left side and reported leg weakness. She had a lumbar MRI that showed L4-L5 opposing endplate edema with associated has been that could be osteomyelitis although felt to be less likely overall based on the imaging. Neurosurgery was contacted recommended following inflammatory markers. Her CRP was high at that time as was ESR she had blood cultures drawn. Peripheral blood culture now positive for strep mitis. She is returning now for further treatment and workup. The pain is nowsevere in the low back. She cannot find any comfortable position. She has been taking [id number] mg in a day and oral Dilaudid at home without any improvement. Reports similar paresthesias and weakness to previous. She has had ongoing issues with nausea and vomiting from her gastroparesis. She felt absolutely terrible throughout the day today and had shaking chills for about 90 minutes this morning. She did not check her temperature, but she was sweaty as well after this. She denies anynew dysuria or hematuria. No new cough or shortness of breath. History obtained from patient, medical record, and from CLAIR Cronin in the emergency department. Blood pressure 160/79 then 109/70, tachycardic 113 then 99, temperature 98.9 ??F, oxygen 90% on room air. Potassium low at 3.2 otherwise BMP unremarkable. CRP elevated at 142 as is ESR 37. Lactic acid normal at 1.3. WBC 12.9, drop in hemoglobin to 9.5, platelet count 239. Stool occult blood is negative. Previous lumbar spine shows possible L4-5 osteomyelitis although this could be from degenerative change. She received 2 g IV Ancef, oral Dilaudid 2 mg, 1 L NS, 40 g oral potassium but she could not tolerate this due to vomiting, and a dose of Eliquis. Admit inpatient with ID and neurosurgery consultation. Clinically Significant Risk Factors Present on Admission # Hypokalemia: Lowest K = 3.2 mmol/L in last 2 days, will replace as needed # Drug Induced Coagulation Defect: home medication list includes an anticoagulant medication # Obesity: Estimated body mass index is 31.47 kg/m?? as calculated from the following: Height as of this encounter: 1.676 m (5' 6). Weight as of this encounter: 88.5 kg (195 lb). # Financial/Environmental Concerns: Past Medical History reviewed: Past Medical History: Diagnosis Date Abnormal Pap smear Porcupine/2 LEEPs age 16 Allergic rhinitis Anemia 2011 with Atrial flutter Borderline personality disorder Depressive disorder Drug-seeking behavior Dysthymic disorder Eating disorder Fertility problem 2010 Clomid and IUI Gastro-oesophageal reflux disease Gastroparesis H/o Seizure as child as child, none since Hypertension 05/08/23 Intermittent asthma Kidney stone Kathleen-Mustafa tear Mild persistent asthma Opioid type dependence, continuous (H) 12/06/2013 Postural orthostatic tachycardia syndrome 2004 Psychogenic nonepileptic seizure PTSD (post-traumatic stress disorder) Pulmonary embolism 04/24/2014 Provoked. Lovenox x 3 months. Past Surgical History reviewed: Past Surgical History: Procedure Laterality Date ADENOIDECTOMY 1996 ANKLE SURGERY APPENDECTOMY ARTHROSCOPY KNEE WITH LATERAL MENISCECTOMY Left 08/11/2023 Procedure: 1. Left knee arthroscopy with partial lateral meniscectomy 2. Left knee extensive arthroscopic synovectomy of the medial gutter, anterior compartment, and fat pad of the left knee; Surgeon: Rafael Vela DO; Location: OR BACK SURGERY 2019 CAUTERY OF CERVIX, CRYOCAUTERY 05/2004 CERCLAGE CERVICAL 10/30/2011 Procedure:CERCLAGE CERVICAL; CERCLAGE CERVICAL; Surgeon:JACOB VAUGHAN; Location: OR CERCLAGE CERVICAL 10/30/2011 Procedure:CERCLAGE CERVICAL; REMOVAL CERVICLE CERCLAGE AND REPLACEMENT OF CERCLAGE CERVICAL; Surgeon:JACOB VAUGHAN; Location: OR CHOLECYSTECTOMY COLONOSCOPY 2013 COLPOSCOPY,LOOP ELECTRD CERVIX EXCIS 11/2004 Diagnostic pelvic laparoscopy 12/2005 ENDOSCOPIC RETROGRADE CHOLANGIOPANCREATOGRAPHY ESOPHAGOSCOPY, GASTROSCOPY, DUODENOSCOPY (EGD), COMBINED 11/23/2012 Procedure: COMBINED ESOPHAGOSCOPY, GASTROSCOPY, DUODENOSCOPY (EGD);; Surgeon: Brannon Villarreal MD; Location: GI ESOPHAGOSCOPY, GASTROSCOPY, DUODENOSCOPY (EGD), COMBINED N/A 02/13/2016 Procedure: ESOPHAGOGASTRODUODENOSCOPY; Surgeon: Meg Lee MD; Location: [facility]; Service: ESOPHAGOSCOPY, GASTROSCOPY, DUODENOSCOPY (EGD), COMBINED N/A 02/13/2016 Procedure: ESOPHAGOGASTRODUODENOSCOPY; Surgeon: Meg Lee MD; Location: [facility] OR; Service: ESOPHAGOSCOPY, GASTROSCOPY, DUODENOSCOPY (EGD), COMBINED N/A 05/05/2023 Procedure: ESOPHAGOGASTRODUODENOSCOPY; Surgeon: Manpreet Lorenzo MD; Location: OR ESOPHAGOSCOPY, GASTROSCOPY, DUODENOSCOPY (EGD), COMBINED N/A 06/11/2023 Procedure: Esophagogastroduodenoscopy; Surgeon: Manpreet Lorenzo MD; Location: [facility] OR ESOPHAGOSCOPY, GASTROSCOPY, DUODENOSCOPY (EGD), COMBINED N/A 12/07/2023 Procedure: Esophagoscopy, gastroscopy, duodenoscopy (EGD), combined; Surgeon: Akbar Alvares MD; Location: GI HYSTERECTOMY VAGINAL 12/2017 INSERT MIDLINE HE 02/13/2016 IR CHEST PORT PLACEMENT > 5 YRS OF AGE 0807/29/2023 IR CHEST PORT PLACEMENT > 5 YRS OF AGE 302/04/2024 IR PICC PLACEMENT > 5 YRS OF AGE 0112/24/2020 IR PORT REMOVAL LEFT 11/12/2023 IRRIGATION AND DEBRIDEMENT FOOT, COMBINED Right 2023 Procedure: Right heel debridement; Surgeon: Farrah Nguyen DPM; Location: OR LARYNGOSCOPY N/A 02/14/2016 Procedure: DIRECT LARYNGOSCOPY, UPPER ESOPHAGOSCOPY, NASAL ESOPHAGOSCOPY, CONTROLLED EPITAXIS; Surgeon: Declan Mata MD; Location: [facility]; Service: OOPHORECTOMY Right Talar fracture lt foot surgery 10/1998 TONSILLECTOMY & ADENOIDECTOMY 1995 TRANSESOPHAGEAL ECHOCARDIOGRAM INTRAOPERATIVE N/A 09/17/2021 Procedure: ECHOCARDIOGRAM, TRANSESOPHAGEAL, INTRAOPERATIVE; Surgeon: GENERIC ANESTHESIA PROVIDER; Location: [facility] OR TUBAL LIGATION Social History reviewed: Social History Tobacco Use Smoking status: Never Passive exposure: Never Smokeless tobacco: Never Substance Use Topics Alcohol use: Yes Comment: occasional Social History Social History Narrative Updated 11/14: , has 3 children (2 daughters, 1 son). Family History reviewed: Family History Problem Relation Age of Onset Breast Cancer Mother Other Cancer Mother uterine cacer Depression Mother Obesity Mother Colon Cancer Father Depression Father Substance Abuse Father Alcoholic Obesity Father Diabetes Paternal Grandmother Cancer - colorectal Paternal Grandfather , diagnosed in 50's, at 54 Diabetes Other Allergies: Allergies Allergen Reactions Chlorhexidine Itching and Swelling Droperidol Swelling seizures, tongue swelling Nsaids Anaphylaxis Sulfa Antibiotics Anaphylaxis SOB, swelling-fingers Compazine [Prochlorperazine] Other (See Comments) Muscle twitching Metoclopramide Other (See Comments) Muscle twitching w IV only; tolerates oral fine Olanzapine Muscle twitching Phenergan [Promethazine] Muscles twitch on own, pt freaks out Phenothiazines Anxiety and Muscle Pain (Myalgia) Dystonic reaction, delirium Zofran [Ondansetron Hcl] Other (See Comments) Pt does not want to receive. She reports trouble breathing, flushing, itching, long QT Contrast Dye Hives, Itching and Cough Pt can tolerate if given 25 mg benadryl PIV prior to contrast Medications: Prior to Admission medications Medication Sig Last Dose Taking? Auth Provider Gps Field Data Collector End Date acetaminophen (TYLENOL) 325 MG tablet Take 325-650 mg by mouth every 6 hours as needed for mild pain Unknown, Entered By History No apixaban ANTICOAGULANT (ELIQUIS) 5 MG tablet Take 1 tablet (5 mg) by mouth 2 times daily Segundo Mcclelland MD No childrens multivitamin w/iron (FLINTSTONES COMPLETE) chewable tablet Take 1 chew tab by mouth dailyUnknown, Entered By History Cholecalciferol (VITAMIN D3) 50 MCG (1999 UT) CAPS Take 1 capsule by mouth daily Unknown, Entered By History No cyclobenzaprine (FLEXERIL) 10 MG tablet Take 1 tablet (10 mg) by mouth 3 times daily as needed for muscle spasms Segundo Mcclelland MD No diphenhydrAMINE (BENADRYL) 25 MG capsule Take 1 capsule (25 mg) by mouth every 6 hours as needed (nausea) Red Wilde MD No EPINEPHrine (ANY BX GENERIC EQUIV) 0.3 MG/0.3ML injection 2-pack Inject 0.3 mLs (0.3 mg) into the muscle once as needed for anaphylaxis Brad Rahman MD folic acid (FOLVITE) 1 MG tablet Take 1 mg by mouth daily Unknown, Entered By History gabapentin (NEURONTIN) 800 MG tablet Take 800 mg by mouth 3 times daily Unknown, Entered By History HYDROmorphone (DILAUDID) 2 MG tablet Take 1 tablet (2 mg) by mouth 2 times daily as needed for severe pain Segundo Mcclelland MD No 03/08/24 loperamide (IMODIUM A-D) 2 MG tablet Take 1 tablet (2 mg) by mouth 4 times daily as needed for diarrhea Kingsley Kimble MD LORazepam (ATIVAN) 1 MG tablet Take 1 mg by mouth every 6 hours as needed for anxiety Unknown, Entered By History No naloxone (NARCAN) 4 MG/0.1ML nasal spray Stopover 4 mg into one nostril alternating nostrils once as needed for opioid reversal Reported, Patient No pantoprazole (PROTONIX) 40 MG EC tablet Take 1 tablet (40 mg) by mouth 2 times daily (before meals)Segundo Mcclelland MD zolpidem (AMBIEN) 10 MG tablet Take 10 mg by mouth At Bedtime Reported, Patient Review of Systems: A Comprehensive greater than 10 system review of systems was carried out. Pertinent positives and negatives are noted above. Otherwise negative. Physical Exam: Blood pressure 109/70, pulse 99, temperature 98.9 ??F (37.2 ??C), temperature source Oral, resp. rate 20, height 1.676 m (5' 6), weight 88.5 kg (195 lb), last menstrual period 12/10/2017, SpO2 97%, not currently . Wt Readings from Last 1 Encounters: 03/05/24 88.5 kg (195 lb) Exam: Constitutional: Crouched leaning forward over the left hand while on my arrival. Moaning in pain. Eyes: sclera white HEENT: Cracked right upper molar without obvious drainage. Dry mucous membranes. Respiratory: no respiratory distress, lungs cta bilaterally, no crackles or wheeze Cardiovascular: Slight regular tachycardia without murmur GI: Obese non-tender, not distended, bowel sounds present Skin: No significant erythema around her right chest wall port site Musculoskeletal/extremities: Tenderness across the entire lower back to slight palpation. Neurologic: A&O, speech clear Psychiatric: Very anxious Lab and imaging data personally reviewed: Labs: Recent Labs Lab 03/05/24214703/02/24 1342 WBC 12.9* 10.0 HGB 9.5* 12.3 12.3 HCT 28.9* 38.5 MCV 90 91 PLT 239 365 Recent Labs Lab 03/05/24214703/02/24 1342 NA 137 135 POTASSIUM 3.2* 3.9 CHLORIDE 100 99 CO2 23 21* ANIONGAP 14 15 GLC 106* 135* BUN 4.3* 12.5 CR 0.63 0.72 GFRESTIMATED >90 >90 KATERINA 8.3* 9.1 Recent Labs Lab 03/05/24214703/02/24 2110 SED 37* 18 Recent Labs Lab 03/05/242147 LACT 1.3 Stool occult blood negative CRP 142 Imaging: Lumbar MRI from 03/02/2024: EXAM: MR LUMBAR SPINE W/O and W CONTRAST LOCATION: [facility] DATE: 03/02/2024 INDICATION: low back pain and patient reporting saddle anesthesia COMPARISON: Plain radiographs 12/19/2023. CONTRAST: 9ML LEONARDA TECHNIQUE: Routine Lumbar Spine MRI without and with IV contrast. FINDINGS: Nomenclature is based on 5 lumbar type vertebral bodies. Normal vertebral body heights and alignment. Mixed Modic type I and type II changes with associated contrast enhancement at the opposing L4-Y4roxzzesxm. No abnormal contrast enhancement in the intervertebral disc. Normal distal spinal cord and cauda equina with conus medullaris at T12-L1. Noextraspinal abnormality. Unremarkable visualized bony pelvis. T12-L1: Normal [...] No spinal canal or neural foraminal stenosis. IMPRESSION: 1. [...] suspicion for discitis osteomyelitis, recommend follow-up imaging. Ady Thurston MD Hospitalist [facility] documented in this encounter Consult Notes * Gauri Romo NP - 03/13/2024 11:47 AM CDTAssociated Order(s): INTERVENTIONAL RADIOLOGY ADULT/PEDS IP CONSULT [facility] Consultation by Neurointerventional Surgery Remote Consult Note Sandi Lopez Age: [age] year old Date of : 1985 Date of Admission: 03/05/2024 Reason for consult: Recurrent polymicrobial bacteremias, back pain Requesting physician: Masood Amato MD Level of consult: One-time consult to assist in determining a diagnosis, recommend an appropriate treatment plan and place orders Assessment and Plan: Assessment: 38 year old female with severe acute on chronic back pain, possible L4-5 osteomyelitis, possible infected port, ESBL. Lumbar biopsy requested to rule out osteomyelitis. Dr. Nolen reviewed imaging and would be able to perform L4-5 disc/possible bone biopsy at [facility]. Plan: Hospitalist to transfer patient to [facility] Continue to hold Eliquis Please enter desired lab orders for biopsy specimen NPO after midnight 03/15/2024 Tentatively planning for L4-5 disc/possible bone biopsy under moderate sedation Call with questions - [phone] Chief Complaint: Sandi Lopez is a 38 year old female with a complicated past medical history including POTS requiring central access currently with a port in place as of 02/04/24, multiple episodes of bacteremia and line infections of unclear infectious nidus, chronic back pain with previous lumbar discectomyfor herniation, chronic pain syndrome, anxiety, MDD, borderline personality disorder, gastroparesis, nephrolithiasis, iron deficiency anemia, GERD, obesity, and suspected opiate/benzodiazepine dependence who presents with severe back pain. She reports chronic low back pain from previous surgery fordisc herniation. She was seen in the ER on 02/25 and 03/02 for acute on chronic low back pain along with numbness down the left side and reported leg weakness. She had a lumbar MRI that showed L4-L5 opposing endplate edema with associated has been that could be osteomyelitis although felt to be less likely overall based on the imaging. Neurosurgery was contacted recommended following inflammatory markers. Her CRP was high at that time as was ESR she had blood cultures drawn. Peripheral blood culture now positive for strep mitis 1 of 2 culture from 03/02/24 thought to be contaminant per ID. She wastold to come back to the emergency room for further treatment and workup. The pain is now severe inthe low back. She cannot find any comfortable position. She has been taking acetaminophen 4500 mg in a day and oral Dilaudid at home without any improvement. Reports similar paresthesias and weaknessto previous. She has had ongoing issues with nausea and vomiting from her gastroparesis. She felt absolutely terrible throughout the day today and had shaking chills for about 90 minutes this morning. She did not check her temperature, but she was sweaty as well after this. She denies any new dysuria or hematuria. No new cough or shortness of breath. Past Medical History: Past Medical History: Diagnosis Date Abnormal Pap smear Porcupine/2 LEEPs age 16 Allergic rhinitis Anemia 2012 with Atrial flutter Borderline personality disorder Depressive disorder Drug-seeking behavior Dysthymic disorder Eating disorder Fertility problem 2010 Clomid and IUI Gastro-oesophageal reflux disease Gastroparesis H/o Seizure as child as child, none since Hypertension 05/08/23 Intermittent asthma Kidney stone Kathleen-Mustafa tear Mild persistent asthma Opioid type dependence, continuous (H) 12/06/2013 Postural orthostatic tachycardia syndrome 2004 Psychogenic nonepileptic seizure PTSD (post-traumatic stress disorder) Pulmonary embolism 04/24/2014 Provoked. Lovenox x 3 months. Past Surgical History: Past Surgical History: Procedure Laterality Date ADENOIDECTOMY 1996 ANKLE SURGERY APPENDECTOMY ARTHROSCOPY KNEE WITH LATERAL MENISCECTOMY Left 08/11/2023 Procedure: 1. Left knee arthroscopy with partial lateral meniscectomy 2. Left knee extensive arthroscopic synovectomy of the medial gutter, anterior compartment, and fat pad of the left knee; Surgeon: Rafael Vela DO; Location: OR BACK SURGERY 2019 CAUTERY OF CERVIX, CRYOCAUTERY 05/2004 CERCLAGE CERVICAL 10/30/2011 Procedure:CERCLAGE CERVICAL; CERCLAGE CERVICAL; Surgeon:JACOB VAUGHAN; Location: OR CERCLAGE CERVICAL 10/30/2011 Procedure:CERCLAGE CERVICAL; REMOVAL CERVICLE CERCLAGE AND REPLACEMENT OF CERCLAGE CERVICAL; Surgeon:JACOB VAUGHAN; Location: OR CHOLECYSTECTOMY COLONOSCOPY 2013 COLPOSCOPY,LOOP ELECTRD CERVIX EXCIS 11/2004 Diagnostic pelvic laparoscopy 12/2005 ENDOSCOPIC RETROGRADE CHOLANGIOPANCREATOGRAPHY ESOPHAGOSCOPY, GASTROSCOPY, DUODENOSCOPY (EGD), COMBINED 11/23/2012 Procedure: COMBINED ESOPHAGOSCOPY, GASTROSCOPY, DUODENOSCOPY (EGD);; Surgeon: Brannon Villarreal MD; Location: GI ESOPHAGOSCOPY, GASTROSCOPY, DUODENOSCOPY (EGD), COMBINED N/A 02/13/2016 Procedure: ESOPHAGOGASTRODUODENOSCOPY; Surgeon: Meg Lee MD; Location: [facility] GI; Service: ESOPHAGOSCOPY, GASTROSCOPY, DUODENOSCOPY (EGD), COMBINED N/A 02/13/2016 Procedure: ESOPHAGOGASTRODUODENOSCOPY; Surgeon: Meg Lee MD; Location: [facility] OR; Service: ESOPHAGOSCOPY, GASTROSCOPY, DUODENOSCOPY (EGD), COMBINED N/A 05/05/2023 Procedure: ESOPHAGOGASTRODUODENOSCOPY; Surgeon: Manpreet Lorenzo MD; Location: OR ESOPHAGOSCOPY, GASTROSCOPY, DUODENOSCOPY (EGD), COMBINED N/A 06/11/2023 Procedure: Esophagogastroduodenoscopy; Surgeon: Manpreet Lorenzo MD; Location: [facility] OR ESOPHAGOSCOPY, GASTROSCOPY, DUODENOSCOPY (EGD), COMBINED N/A 12/07/2023 Procedure: Esophagoscopy, gastroscopy, duodenoscopy (EGD), combined; Surgeon: Akbar Alvares MD; Location: GI HYSTERECTOMY VAGINAL 12/2017 INSERT MIDLINE HE 02/13/2016 IR CHEST PORT PLACEMENT > 5 YRS OF AGE 0807/29/2023 IR CHEST PORT PLACEMENT > 5 YRS OF AGE 302/04/2024 IR PICC PLACEMENT > 5 YRS OF AGE 0112/24/2020 IR PORT REMOVAL LEFT 11/12/2023 IRRIGATION AND DEBRIDEMENT FOOT, COMBINED Right 2023 Procedure: Right heel debridement; Surgeon: Farrah Nguyen DPM; Location: OR LARYNGOSCOPY N/A 02/14/2016 Procedure: DIRECT LARYNGOSCOPY, UPPER ESOPHAGOSCOPY, NASAL ESOPHAGOSCOPY, CONTROLLED EPITAXIS; Surgeon: Declan Mata MD; [facility]: [facility] [facility], [place]; Service: OOPHORECTOMY Right Talar fracture lt foot surgery 10/1998 TONSILLECTOMY & ADENOIDECTOMY 1995 TRANSESOPHAGEAL ECHOCARDIOGRAM INTRAOPERATIVE N/A 09/17/2021 Procedure: ECHOCARDIOGRAM, TRANSESOPHAGEAL, INTRAOPERATIVE; Surgeon: GENERIC ANESTHESIA PROVIDER; Location: OR TUBAL LIGATION Allergies: Allergies Allergen Reactions Chlorhexidine Itching and Swelling [...] 25 mg benadryl PIV prior to contrast Medications: Current Facility-Administered Medications Medication Dose Route Frequency Provider Last Rate Last Admin acetaminophen (TYLENOL) tablet 650 mg 650 mg Oral Q4H PRN Carlos Vila MD 650 mg at 03/12/24 0303 Or acetaminophen (TYLENOL) Suppository 650 mg 650 mg Rectal Q4H PRN Carlos Vila MD 650 mg at 03/08/24 1328 [Held by provider] apixaban ANTICOAGULANT (ELIQUIS) tablet 5 mg 5 mg Oral BID Carlos Vila MD 5 mg at 03/12/24 0911 calcium carbonate (TUMS) chewable tablet 1,000 mg 1,000 mg Oral 4x Daily PRN Ady Thurston MD childrens multivitamin with iron (FLINTSTONES COMPLETE) chewable tablet 1 tablet 1 tablet Oral Daily Carlos Vila MD 1 tablet at 03/13/24 0913 diazepam (VALIUM) injection 2.5 mg 2.5 mg Intravenous Q4H PRN Carlos Vila MD diphenhydrAMINE (BENADRYL) capsule 50 mg 50 mg Oral Q6H PRN Carlos Vila MD Or diphenhydrAMINE (BENADRYL) injection 25 mg 25 mg Intravenous Q6H PRN Carlos Vila MD 25 mg at 03/12/24 1639 EPINEPHrine (ADRENALIN) kit 0.3 mg 0.3 mg Intramuscular Q3 Min PRN Carlos Vila MD ertapenem (INVanz) 1 g vial to attach to NS 100 mL bag 1 g Intravenous Q24H Waleska Stevenson MD 1 g at 03/13/24 1100 famotidine (PEPCID) injection 40 mg 40 mg Intravenous Q12H Carlos Vila MD 40 mg at 03/13/24 0536 folic acid (FOLVITE) tablet 1 mg 1 mg Oral Daily Ady Thurston MD 1 mg at 03/13/24 0914 gabapentin (NEURONTIN) capsule 800 mg 800 mg Oral TID Ady Thurston MD 800 mg at 03/13/24 0914 heparin 100 unit/mL injection 5-10 mL 5-10 mL Intracatheter Q28 Days Carlos Vila MD heparin 25,000 units in 0.45% NaCl 250 mL ANTICOAGULANT infusion 0-5,000 Units/hr Intravenous Continuous Masood Amato MD heparin lock flush 10 UNIT/ML injection 5-10 mL 5-10 mL Intracatheter Q1H PRN Carlos Vila MD 5 mL at 03/13/24 0535 heparin lock flush 10 UNIT/ML injection 5-10 mL 5-10 mL Intracatheter Q24H Carlos Vila MD 5 mL at 03/13/24 1200 HYDROmorphone (DILAUDID) tablet 2 mg 2 mg Oral Q3H PRN Ady Thurston MD HYDROmorphone (DILAUDID) tablet 4 mg 4 mg Oral Q3H PRN Ady Thurston MD 4 mg at 03/13/24 0925 lactulose (CHRONULAC) solution 10 g 10 g Oral BID PRN Carlos Vila MD 10 g at 03/09/24 1550 Lidocaine (LIDOCARE) 4 % Patch 1 patch 1 patch Transdermal Q24H Ady Thurston MD 1 patch at 03/13/24 0914 lidocaine (LMX4) cream Topical Q1H PRN Ady Thurston MD lidocaine 1 % 0.1-1 mL 0.1-1 mL Other Q1H PRN Ady Thurston MD LORazepam (ATIVAN) injection 0.5 mg 0.5 mg Intravenous Q4H PRN Ady Thurston MD 0.5 mg at 03/12/24 1944 LORazepam (ATIVAN) tablet 1 mg 1 mg Oral Q4H PRN Ady Thurston MD 1 mg at 03/07/24 0625 melatonin tablet 5 mg 5 mg Oral At Bedtime PRN Ady Thurston MD methocarbamol (ROBAXIN) tablet 500 mg 500 mg Oral 4x Daily Carlos Vila MD 500 mg at 03/13/24 0914 naloxone (NARCAN) injection 0.2 mg 0.2 mg Intravenous Q2 Min PRN Carlos Vila MD Or naloxone (NARCAN) injection 0.4 mg 0.4 mg Intravenous Q2 Min PRN Carlos Vila MD Or naloxone (NARCAN) injection 0.2 mg 0.2 mg Intramuscular Q2 Min PRN Carlos Vila MD Or naloxone (NARCAN) injection 0.4 mg 0.4 mg Intramuscular Q2 Min PRN Carlos Vila MD pantoprazole (PROTONIX) IV push injection 40 mg 40 mg Intravenous Daily Carlos Vila MD 40 mg at 03/13/24 0913 polyethylene glycol (MIRALAX) Packet 17 g 17 g Oral BID PRN Ady Thurston MD scopolamine (TRANSDERM) 72 hr patch 1 patch 1 patch Transdermal Q72H Carlos Vila MD 1 patch at 03/11/24 1239 And scopolamine (TRANSDERM-SCOP) Patch in Place Transdermal Q8H Carlos Vila MD senna-docusate (SENOKOT-S/PERICOLACE) 8.6-50 MG per tablet 1 tablet 1 tablet Oral BID PRN Ady Thurston MD Or senna-docusate (SENOKOT-S/PERICOLACE) 8.6-50 MG per tablet 2 tablet 2 tablet Oral BID PRN Ady Thurston MD sodium chloride (PF) 0.9% PF flush 10-20 mL 10-20 mL Intracatheter q1 min prn Carlos Vila MD 10 mL at 03/12/24 1135 sodium chloride (PF) 0.9% PF flush 10-20 mL 10-20 mL Intracatheter Q1H PRN Carlos Vila MD 10 mL at 03/11/24 1808 sodium chloride (PF) 0.9% PF flush 10-20 mL 10-20 mL Intracatheter Q28 Days Carlos Vila MD10 mL at 03/08/24 0956 sodium chloride (PF) 0.9% PF flush 3 mL 3 mL Intracatheter q1 min prn Ady Thurston MD zolpidem (AMBIEN) tablet 10 mg 10 mg Oral At Bedtime PRN Ady Thurston MD 10 mg at 03/07/24 0024 Review of Systems: BP 111/56 (BP Location: Right arm) Pulse 100 Temp 97.1 ??F (36.2 ??C) (Temporal) Resp 22 Ht1.676 m (5' 6) Wt 107.3 kg (236 lb 8.9 oz) LMP 12/10/2017 SpO2 98% BMI 38.18 kg/m?? Data: Lab Results Component Value Date WBC 7.8 03/12/2024 HGB 9.3 (L) 03/12/2024 HCT 28.8 (L) 03/12/2024 PLT 238 03/12/2024 NA 138 03/12/2024 POTASSIUM 4.0 03/12/2024 CHLORIDE 102 03/12/2024 CO2 26 03/12/2024 BUN 15.1 03/12/2024 CR 0.71 03/12/2024 GLC 113 (H) 03/12/2024 SED 44 (H) 03/07/2024 DD 1.91 (H) 12/01/2023 NTBNPI 73 01/01/2024 TROPONIN <0.015 09/14/2021 TROPI <0.015 05/26/2021 AST 46 (H) 03/05/2024 ALT 98 (H) 03/05/2024 GGT 81 (H) 11/10/2023 ALKPHOS 348 (H) 03/05/2024 BILITOTAL 0.2 03/05/2024 INR 1.00 01/01/2024 Imaging: EXAM: MR LUMBAR SPINE W/O and W CONTRAST LOCATION: [facility] DATE: 03/02/2024 IMPRESSION: 1. Multilevel lumbar spondylosis without high-grade [...] suspicion for discitis osteomyelitis, recommend follow-up imaging. Gauri Romo NP [facility] Neurointerventional Surgery [phone] * HeberReij pollard CNP - 03/06/2024 2:27 PM CDTAssociated Order(s): NEUROSURGERY IP CONSULT Neurosurgery Consultation Date of Service: 03/06/2024 Date of Admission: 03/05/2024 Hospital Day: 2 Assessment/Plan Sandi Lopez is a 38 year old female with a past medical history of L5-S1 microdiscectomy x [address] Tabor at [facility], gastroparesis, bacteremia, fungemia, Port-A-Cath placement, chronic back pain, chronic pain, PE on Eliquis, POTS admitted on 03/05/2024 for low back pain, possible L4-L5 osteomyelitis. Neuro # Acute on chronic low back pain #Possible L4-L5 osteomyelitis -No surgical intervention indicated at this time -ID consulted Clinically Significant Risk Factors Present on Admission # Hypokalemia: Lowest K = 3.2 mmol/L in last 2 days, will replace as needed # Drug Induced Coagulation Defect: home medication list includes an anticoagulant medication # Obesity: Estimated body mass index is 31.47 kg/m?? as calculated from the following: Height as of this encounter: 1.676 m (5' 6). Weight as of this encounter: 88.5 kg (195 lb). # Financial/Environmental Concerns: TIME SPENT ON THIS ENCOUNTER I spent 50 minutes of time on the unit/floor managing the care of Sandi Lopez excluding time performing procedures. I have personally reviewed the following data/imaging over the past 24 hours. The patient was discussed with Dr. Jones. Reji Buck, [place] [id number] History of Present Illness: Sandi Lopez is a 38 year old female with a past medical history of L5-S1 microdiscectomy [address] Tabor at [facility], gastroparesis, bacteremia, fungemia, Port-A-Cath placement, chronic back pain, chronic pain admitted on 03/05/2024 for low back pain, possible L4-L5 osteomyelitis. Patient states approximately 1 to 2 weeks ago she developed sudden back pain and thought she had a reherniated disc. Over the course of the next several days pain continued to worsen until patient presented to ED. MRI was obtained in the ED on March 02, 2024. MRI demonstrated hyperintensity of endplates at L4 and 5. No disc enhancement at that time. Blood cultures were drawn patient had no other signs of infection including fever or white count. Patient was sent home. Patient came back to ED overnight with ongoing back pain and further evaluation after blood culture came back positive for Streptococcus. CRP also elevated. Patient does state that she does have dental carry for over a month however it is unclear if this is a contaminant or possible cause of bacteremia. Patient also had port placed 1 month ago secondary to gastroparesis and electrolyte imbalances. However she states its never been accessed outside of the hospital. From a neurosurgical standpoint there is no cord compression or large volume abscess that is amenable to surgical intervention. It is also not clear on if this is a contaminate or actual bacteremia. Will defer to ID team for further workup and management. On March 02 ED admission patient endorsed saddle anesthesia and change in bowel and bladder functionhowever she does not endorse any of the symptoms today. Allergies Allergen Reactions Chlorhexidine Itching and Swelling Droperidol Swelling seizures, tongue swelling Nsaids Anaphylaxis Sulfa Antibiotics Anaphylaxis SOB, swelling-fingers Compazine [Prochlorperazine] Other (See Comments) Muscle twitching Metoclopramide Other (See Comments) Muscle twitching w IV only; tolerates oral fine Olanzapine Muscle twitching Phenergan [Promethazine] Muscles twitch on own, pt freaks out Phenothiazines Anxiety and Muscle Pain (Myalgia) Dystonic reaction, delirium Zofran [Ondansetron Hcl] Other (See Comments) Pt does not want to receive. She reports trouble breathing, flushing, itching, long QT Contrast Dye Hives, Itching and Cough Pt can tolerate if given 25 mg benadryl PIV prior to contrast Current Medications: Current Facility-Administered Medications Medication Dose Route Frequency Provider Last Rate Last Admin [Held by provider] apixaban ANTICOAGULANT (ELIQUIS) tablet 5 mg 5 mg Oral BID Ady Thurston MD ceFAZolin (ANCEF) 2 g in 100 mL D5W intermittent infusion 2 g Intravenous Q8H Ady Thurston MD 200 mL/hr at 03/06/24 0630 2 g at 03/06/24 0630 folic acid (FOLVITE) tablet 1 mg 1 mg Oral Daily Ady Thurston MD 1 mg at 03/06/24 1110 gabapentin (NEURONTIN) capsule 800 mg 800 mg Oral TID Ady Thurston MD 800 mg at 03/06/24 1110 sodium chloride (PF) 0.9% PF flush 3 mL 3 mL Intracatheter Q8H Ady Thurston MD 3 mL at 03/06/24 0824 PRN Medications: Current Facility-Administered Medications Medication Dose Route Frequency Provider Last Rate Last Admin calcium carbonate (TUMS) chewable tablet 1,000 mg 1,000 mg Oral 4x Daily PRN Ady Thurston MD cyclobenzaprine (FLEXERIL) tablet 10 mg 10 mg Oral TID PRN Ady Thurston MD diphenhydrAMINE (BENADRYL) capsule 25 mg 25 mg Oral Q6H PRN Ady Thurston MD HYDROmorphone (DILAUDID) tablet 2 mg 2 mg Oral Q3H PRN Ady Thurston MD HYDROmorphone (DILAUDID) tablet 4 mg 4 mg Oral Q3H PRN Ady Thurston MD 4 mg at 03/06/24 1223 lidocaine (LMX4) cream Topical Q1H PRN Ady Thurston MD lidocaine 1 % 0.1-1 mL 0.1-1 mL Other Q1H PRN Ady Thurston MD LORazepam (ATIVAN) injection 0.5 mg 0.5 mg Intravenous Q4H PRN Ady Thurston MD LORazepam (ATIVAN) tablet 1 mg 1 mg Oral Q4H PRN Ady Thurston MD melatonin tablet 5 mg 5 mg Oral At Bedtime PRN Ady Thurston MD polyethylene glycol (MIRALAX) Packet 17 g 17 g Oral BID PRN Ady Thurston MD senna-docusate (SENOKOT-S/PERICOLACE) 8.6-50 MG per tablet 1 tablet 1 tablet Oral BID PRN Ady Thurston MD Or senna-docusate (SENOKOT-S/PERICOLACE) 8.6-50 MG per tablet 2 tablet 2 tablet Oral BID PRN Ady Thurston MD sodium chloride (PF) 0.9% PF flush 3 mL 3 mL Intracatheter q1 min prn Ady Thurston MD zolpidem (AMBIEN) tablet 10 mg 10 mg Oral At Bedtime PRN Ady Thurston MD Infusions: Current Facility-Administered Medications Medication Dose Route Frequency Provider Last Rate Last Admin Physical Examination: Vitals: BP 107/74 (BP Location: Left arm) Pulse 64 Temp 97.6 ??F (36.4 ??C) (Oral) Resp 16 Ht 1.676 m (5' 6) Wt 88.5 kg (195 lb) LMP 12/10/2017 SpO2 96% BMI 31.47 kg/m?? General: Adult female patient, lying in bed HEENT: Normocephalic, atraumatic, no icterus, oral cavity/oropharynx pink and moist Cardiac: Adequately perfused Pulm: Unlabored, expansion symmetric, no retractions or use of accessory muscles Abdomen: Soft, non-distended Extremities: Warm, no edema, distal pulses +2, well perfused Skin: No rash or lesion Psych: Pleasant but uncomfortable Neuro: Mental status: Awake, alert, attentive, oriented to self, time, place, and circumstance. Language is fluent and coherent with intact comprehension of complex commands, naming and repetition. Cranial nerves: VFF, PERRL, conjugate gaze, EOMI, facial sensation intact, face symmetric, shouldershrug strong, tongue midline, no dysarthria. Motor: Normal bulk and tone. No abnormal movements. 5/5 strength in 4/4 extremities. Sensory: Patient has decreased sensation in inner left thigh outer left barbour and on the sole of herleft foot. Coordination: FNF and HS without ataxia or dysmetria. Rapid alternating movements intact. Gait: CYRIL, deferred. Labs and Imaging: Results for orders placed or performed during the hospital encounter of 03/05/24 (from the past 24 hour(s)) CBC with platelets differential Narrative The following orders were created for panel order CBC with platelets differential. Procedure Abnormality Status --------- ------ CBC with platelets and d...[[id number]] Abnormal Final result Please view results for these tests on the individual orders. Basic metabolic panel Result Value Ref Range Sodium 137 135 - 145 mmol/L Potassium 3.2 (L) 3.4 - 5.3 mmol/L Chloride 100 98 - 107 mmol/L Carbon Dioxide (CO2) 23 22 - 29 mmol/L Anion Gap 14 7 - 15 mmol/L Urea Nitrogen 4.3 (L) 6.0 - 20.0 mg/dL Creatinine 0.63 0.51 - 0.95 mg/dL GFR Estimate >90 >60 mL/min/1.73m2 Calcium 8.3 (L) 8.6 - 10.0 mg/dL Glucose 106 (H) 70 - 99 mg/dL CRP inflammation Result Value Ref Range CRP Inflammation 142.72 (H) <5.00 mg/L Erythrocyte sedimentation rate auto Result Value Ref Range Erythrocyte Sedimentation Rate 37 (H) 0 - 20 mm/hr Blood Culture Arm, Right Specimen: Arm, Right; Blood Result Value Ref Range Culture No growth after 12 hours Lactic acid whole blood Result Value Ref Range Lactic Acid 1.3 0.7 - 2.0 mmol/L CBC with platelets and differential Result Value Ref Range WBC Count 12.9 (H) 4.0 - 11.0 10e3/uL RBC Count 3.22 (L) 3.80 - 5.20 10e6/uL Hemoglobin 9.5 (L) 11.7 - 15.7 g/dL Hematocrit 28.9 (L) 35.0 - 47.0 % MCV 90 78 - 100 fL MCH 29.5 26.5 - 33.0 pg MCHC 32.9 31.5 - 36.5 g/dL RDW 17.2 (H) 10.0 - 15.0 % Platelet Count 239 150 - 450 10e3/uL % Neutrophils 72 % % Lymphocytes 18 % % Monocytes 8 % % Eosinophils 1 % % Basophils 0 % % Immature Granulocytes 1 % NRBCs per 100 WBC 0 <1 /100 Absolute Neutrophils 9.3 (H) 1.6 - 8.3 10e3/uL Absolute Lymphocytes 2.3 0.8 - 5.3 10e3/uL Absolute Monocytes 1.1 0.0 - 1.3 10e3/uL Absolute Eosinophils 0.1 0.0 - 0.7 10e3/uL Absolute Basophils 0.0 0.0 - 0.2 10e3/uL Absolute Immature Granulocytes 0.1 <=0.4 10e3/uL Absolute NRBCs 0.0 10e3/uL Magnesium Result Value Ref Range Magnesium 1.8 1.7 - 2.3 mg/dL Stool: occult blood Result Value Ref Range Occult Blood Negative Negative Blood Culture Arm, Right Specimen: Arm, Right; Blood Result Value Ref Range Culture No growth after 12 hours UA with Microscopic reflex to Culture Specimen: Urine, Clean Catch Result Value Ref Range Color Urine Yellow Colorless, Straw, Light Yellow, Yellow Appearance Urine Slightly Cloudy (A) Clear Glucose Urine Negative Negative mg/dL Bilirubin Urine Negative Negative Ketones Urine Negative Negative mg/dL Specific [place] Urine 1.018 1.003 - 1.035 Blood Urine Negative Negative pH Urine 6.0 5.0 - 7.0 Protein Albumin Urine 10 (A) Negative mg/dL Urobilinogen Urine Normal Normal, 2.0 mg/dL Nitrite Urine Negative Negative Leukocyte Esterase Urine Negative Negative Mucus Urine Present (A) None Seen /LPF RBC Urine 5 (H) <=2 /HPF WBC Urine 3 <=5 /HPF Squamous Epithelials Urine 13 (H) <=1 /HPF Narrative Urine Culture not indicated *Note: Due to a large number of results and/or encounters for the requested time period, some results have not been displayed. A complete set of results can be found in Results Review. All relevant imaging and laboratory values personally reviewed. Dragon Disclosure This was created at least in part with a voice recognition software. Mistakes/typos may be present. Associated attestation - Neal Jones MD - 03/06/2024 2:58 PM CDT Physician Attestation I have reviewed and discussed with the advanced practice provider their history, physical and plan for Sandi Lopez. I did not participate in a shared visit; this is an advanced practice provider only visit. Neal Jones MD Date of Service (when I saw the patient): I did not personally see this patient today. * June Jones MD - 03/06/2024 11:19 AM CDTAssociated Order(s): INFECTIOUS DISEASES IP CONSULT [facility] Infectious Disease Consultation Date of Admission: 03/05/2024 Date of Consult (When I saw the patient): 03/06/24 Assessment & Plan Sandi Lopez is a 38 year old who was admitted on 03/05/2024. 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, loss of > 100 lbs, hx of DVT/PE, severe anxiety, anemia, thrombocytosis, chronic pain, obesity admitted with positive blood culture johny 1/2 for strep oralis/ mitis 2nd blood culture is still negative Repeat blood cultures are pending Back pain: MRI no discitis/ osteo On ancef Recommendations: So far only 1/2 positive cultures for strep mitis think is a contaminant but get repeat blood cultures to document clearance If multiple positive blood cultures will recommend removal of port Imaging less suspicious for osteomyelitis if continued concern and no more positive blood cultures recommend aspiration to confirm the diagnosis vs repeat interval imaging but so far but based on imaging and only 1 positive blood culture for strep mitis suspicion is low Discussed with MYKE Jones MD Reason for Consult Reason for consult: I was asked to evaluate this patient for positive blood cultures only 1/2 for strep mitis/ oralis. Primary Care Physician Segundo Mcclelland Chief Complaint Back pain History is obtained from the patient and medical records History of Present Illness Sandi Lopez is a 38 year old female who presents with 1/2 positive blood cultures Back pain Past Medical History I have reviewed this patient's medical history and updated it with pertinent information if needed. Past Medical History: Diagnosis Date Abnormal Pap smear Porcupine/2 LEEPs age 16 Allergic rhinitis Anemia 2012 with Atrial flutter Borderline personality disorder Depressive disorder Drug-seeking behavior Dysthymic disorder Eating disorder Fertility problem 2011 Clomid and IUI Gastro-oesophageal reflux disease Gastroparesis H/o Seizure as child as child, none since Hypertension 05/08/23 Intermittent asthma Kidney stone Kathleen-Mustafa tear Mild persistent asthma Opioid type dependence, continuous (H) 12/06/2013 Postural orthostatic tachycardia syndrome 2005 Psychogenic nonepileptic seizure PTSD (post-traumatic stress disorder) Pulmonary embolism 04/24/2014 Provoked. Lovenox x 3 months. Past Surgical History I have reviewed this patient's surgical history and updated it with pertinent information if needed. Past Surgical History: Procedure Laterality Date ADENOIDECTOMY 1996 ANKLE SURGERY APPENDECTOMY ARTHROSCOPY KNEE WITH LATERAL MENISCECTOMY Left 08/11/2023 Procedure: 1. Left knee arthroscopy with partial lateral meniscectomy 2. Left knee extensive arthroscopic synovectomy of the medial gutter, anterior compartment, and fat pad of the left knee; Surgeon: Rafael Vela DO; Location: OR BACK SURGERY 2019 CAUTERY OF CERVIX, CRYOCAUTERY 05/2004 CERCLAGE CERVICAL 10/30/2011 Procedure:CERCLAGE CERVICAL; CERCLAGE CERVICAL; Surgeon:JACOB VAUGHAN; Location: OR CERCLAGE CERVICAL 10/30/2011 Procedure:CERCLAGE CERVICAL; REMOVAL CERVICLE CERCLAGE AND REPLACEMENT OF CERCLAGE CERVICAL; Surgeon:JACOB VAUGHAN; Location: OR CHOLECYSTECTOMY COLONOSCOPY 2013 COLPOSCOPY,LOOP ELECTRD CERVIX EXCIS 11/2004 Diagnostic pelvic laparoscopy 12/2005 ENDOSCOPIC RETROGRADE CHOLANGIOPANCREATOGRAPHY ESOPHAGOSCOPY, GASTROSCOPY, DUODENOSCOPY (EGD), COMBINED 11/23/2012 Procedure: COMBINED ESOPHAGOSCOPY, GASTROSCOPY, DUODENOSCOPY (EGD);; Surgeon: Brannon Villarreal MD; Location: GI ESOPHAGOSCOPY, GASTROSCOPY, DUODENOSCOPY (EGD), COMBINED N/A 02/13/2016 Procedure: ESOPHAGOGASTRODUODENOSCOPY; Surgeon: Meg Lee MD; Location: [facility]; Service: ESOPHAGOSCOPY, GASTROSCOPY, DUODENOSCOPY (EGD), COMBINED N/A 02/13/2016 Procedure: ESOPHAGOGASTRODUODENOSCOPY; Surgeon: Meg Lee MD; Location: [facility] OR; Service: ESOPHAGOSCOPY, GASTROSCOPY, DUODENOSCOPY (EGD), COMBINED N/A 05/05/2023 Procedure: ESOPHAGOGASTRODUODENOSCOPY; Surgeon: Manpreet Lorenzo MD; Location: [facility] ESOPHAGOSCOPY, GASTROSCOPY, DUODENOSCOPY (EGD), COMBINED N/A 06/11/2023 Procedure: Esophagogastroduodenoscopy; Surgeon: Manpreet Lorenzo MD; Location: [facility] OR ESOPHAGOSCOPY, GASTROSCOPY, DUODENOSCOPY (EGD), COMBINED N/A 12/07/2023 Procedure: Esophagoscopy, gastroscopy, duodenoscopy (EGD), combined; Surgeon: Akbar Alvares MD; Location: GI HYSTERECTOMY VAGINAL 12/2017 INSERT MIDLINE HE 02/13/2016 IR CHEST PORT PLACEMENT > 5 YRS OF AGE 0807/29/2023 IR CHEST PORT PLACEMENT > 5 YRS OF AGE 302/04/2024 IR PICC PLACEMENT > 5 YRS OF AGE 0112/24/2020 IR PORT REMOVAL LEFT 11/12/2023 IRRIGATION AND DEBRIDEMENT FOOT, COMBINED Right 2023 Procedure: Right heel debridement; Surgeon: Farrah Nguyen DPM; Location: OR LARYNGOSCOPY N/A 02/14/2016 Procedure: DIRECT LARYNGOSCOPY, UPPER ESOPHAGOSCOPY, NASAL ESOPHAGOSCOPY, CONTROLLED EPITAXIS; Surgeon: Declan Mata MD; Location: [facility], [place]; Service: OOPHORECTOMY Right Talar fracture lt foot surgery 10/1998 TONSILLECTOMY & ADENOIDECTOMY 1995 TRANSESOPHAGEAL ECHOCARDIOGRAM INTRAOPERATIVE N/A 09/17/2021 Procedure: ECHOCARDIOGRAM, TRANSESOPHAGEAL, INTRAOPERATIVE; Surgeon: GENERIC ANESTHESIA PROVIDER; Location: [facility] OR TUBAL LIGATION Prior to Admission Medications Prior to Admission Medications Prescriptions Last Dose Informant Patient Reported? Taking? Cholecalciferol (VITAMIN D3) 50 MCG (1999 UT) CAPS 03/05/2024 at am Self Yes Yes Sig: Take 1 capsule by mouth daily EPINEPHrine (ANY BX GENERIC EQUIV) 0.3 MG/0.3ML injection 2-pack Self No Yes Sig: Inject 0.3 mLs (0.3 mg) into the muscle once as needed for anaphylaxis HYDROmorphone (DILAUDID) 2 MG tablet 03/05/2024 No Yes Sig: Take 1 tablet (2 mg) by mouth 2 times daily as needed for severe pain LORazepam (ATIVAN) 1 MG tablet 03/05/2024 Self Yes Yes Sig: Take 1 mg by mouth every 6 hours as needed for anxiety acetaminophen (TYLENOL) 500 MG tablet 03/05/2024 at max by evening Yes Yes Sig: Take 1,000 mg by mouth every 4 hours as needed for mild pain apixaban ANTICOAGULANT (ELIQUIS) 5 MG tablet 03/05/2024 at pm Self No Yes Sig: Take 1 tablet (5 mg) by mouth 2 times daily childrens multivitamin w/iron (FLINTSTONES COMPLETE) chewable tablet 03/05/2024 at am Self Yes Yes Sig: Take 1 chew tab by mouth daily cyclobenzaprine (FLEXERIL) 10 MG tablet took but md said stop Wednesday No No Sig: Take 1 tablet (10 mg) by mouth 3 times daily as needed for muscle spasms diphenhydrAMINE (BENADRYL) 25 MG capsule 03/05/2024 Self No Yes Sig: Take 1 capsule (25 mg) by mouth every 6 hours as needed (nausea) folic acid (FOLVITE) 1 MG tablet Past Week Self Yes Yes Sig: Take 1 mg by mouth daily gabapentin (NEURONTIN) 800 MG tablet 03/05/2024 at 2 doses Self Yes Yes Sig: Take 800 mg by mouth 3 times daily naloxone (NARCAN) 4 MG/0.1ML nasal spray Self Yes Yes Sig: Stopover 4 mg into one nostril alternating nostrils once as needed for opioid reversal zolpidem (AMBIEN) 10 MG tablet 03/04/2024 Self Yes Yes Sig: Take 10 mg by mouth At Bedtime Facility-Administered Medications: None Allergies Allergies Allergen Reactions Chlorhexidine Itching and Swelling Droperidol Swelling seizures, tongue swelling Nsaids Anaphylaxis Sulfa Antibiotics Anaphylaxis SOB, swelling-fingers Compazine [Prochlorperazine] Other (See Comments) Muscle twitching Metoclopramide Other (See Comments) Muscle twitching w IV only; tolerates oral fine Olanzapine Muscle twitching Phenergan [Promethazine] Muscles twitch on own, pt freaks out Phenothiazines Anxiety and Muscle Pain (Myalgia) Dystonic reaction, delirium Zofran [Ondansetron Hcl] Other (See Comments) Pt does not want to receive. She reports trouble breathing, flushing, itching, long QT Contrast Dye Hives, Itching and Cough Pt can tolerate if given 25 mg benadryl PIV prior to contrast Immunization History Immunization History Administered Date(s) Administered COVID-19 Monovalent 18+ (Moderna) 10/12/2021 COVID-19 Vaccine (Ghazal) 02/03/2021 DTaP, Unspecified 02/05/2014 Flu, Unspecified 08/29/2010, 08/29/2012 [id number] Novel Flu 09/26/2012 HepB 07/16/2000, 08/13/2000 HepB, Unspecified 03/16/2005 Hepatitis A (ADULT 19+) 03/16/2005 Influenza (IIV3) PF 09/29/2008, 08/29/2010, 12/08/2012, 10/17/2013 Influenza Vaccine >6 months,quad, PF 08/15/2018 Influenza Vaccine, 6+MO IM (QUADRIVALENT W/PRESERVATIVES) 09/17/2012, 12/08/2012 MMR 08/11/1988, 07/16/2000 Meningococcal (Menomune??) 03/16/2005 Meningococcal ACWY (Menactra??) 03/16/2005 Pneumococcal 23 valent 09/23/2006, 10/13/2008, 12/08/2012 Poliovirus, inactivated (IPV) 09/07/1991, 03/16/2005 TD,PF 7+ (Tenivac) 1985, 07/16/2000, 12/18/2004, 03/16/2005 Td (Adult), Adsorbed 1985 Td, Absorbed, Pf, Adult, Lf Unspecified 1985, 03/16/2005 Tdap (Adult) Unspecified Formulation 1985 Typhoid Oral 03/16/2005 Yellow Fever 03/16/2005 Social History I have reviewed this patient's social history and updated it with pertinent information if needed. Sandi Acostafahad reports that she has never smoked. She has never been exposed to tobacco smoke. She has never used smokeless tobacco. She reports current alcohol use. She reports that she does notuse drugs. Family History I have reviewed this patient's family history and updated it with pertinent information if needed. Family History Problem Relation Age of Onset Breast Cancer Mother Other Cancer Mother uterine cacer Depression Mother Obesity Mother Colon Cancer Father Depression Father Substance Abuse Father Alcoholic Obesity Father Diabetes Paternal Grandmother Cancer - colorectal Paternal Grandfather , diagnosed in 50's, at 54 Diabetes Other Review of Systems The 10 point Review of Systems is negative Physical Exam Temp: 97.6 ??F (36.4 ??C) Temp src: Oral BP: 107/74 Pulse: 64 Resp: 16 SpO2: 96 % O2 Device: None (Room air) Vital Signs with Ranges Temp: [97.6 ??F (36.4 ??C)-98.9 ??F (37.2 ??C)] 97.6 ??F (36.4 ??C) Pulse: [64-113] 64 Resp: [16-20] 16 BP: (107-160)/(61-79) 107/74 SpO2: [96 %-97 %] 96 % 195 lbs 0 oz Body mass index is 31.47 kg/m??. GENERAL APPEARANCE: awake EYES: Eyes grossly normal to inspection NECK: no adenopathy RESP: lungs clear CV: regular rates and rhythm LYMPHATICS: normal ant/post cervical and supraclavicular nodes ABDOMEN: soft, nontender MS: extremities normal SKIN: no suspicious lesions or rashes Data All laboratory data reviewed No results for input(s): CULT in the last 168 hours. Recent Labs Lab Test 04/17/21 0529 12/28/20 1026 12/28/20 0630 12/27/20 0723 12/27/20 0615 12/26/20 1205 12/26/20 1158 12/24/20 2230 12/24/20 0131 CULT 50,000 to 100,000 colonies/mL mixed urogenital loan Susceptibility testing not routinely done No growth No growth No growth No growth No growth Cultured on the 1st day of incubation: Streptococcus salivarius group * Critical Value/Significant Value, preliminary result only, called to and read back by Faith Lay RN @ 0212 12/27/20 . (Note) NEGATIVE for the following: Staphylococcus spp., Staph aureus, Staph epidermidis, Staph lugdunensis, Streptococcus spp., Strep pneumoniae, Strep pyogenes, Strep agalactiae, Strep anginosus group, Enterococcus faecalis, Enterococcus faecium, and Listeria spp. by Bangeeigene multiplex nucleic acid test. Final identification and antimicrobial susceptibility testing will be verified by standard methods. Critical Value/Significant Value called to and read back by Faith Lay RN at 0450 12/27/20 hg No growth No growth All cultures: Recent Labs Lab 03/02/24 2110 03/02/24 2042 CULTURE Positive on the 1st day of incubation* Streptococcus mitis/oralis* No growth after 3 days Blood culture: Results for orders placed or performed during the hospital encounter of 03/02/24 Blood Culture Arm, Left Specimen: Arm, Left; Blood Result Value Ref Range Culture Positive on the 1st day of incubation (A) Culture Streptococcus mitis/oralis (AA) Susceptibility Streptococcus mitis/oralis - [place] Ampicillin <=0.06 Susceptible ug/mL Penicillin 0.12 Susceptible ug/mL Clindamycin <=0.06 Susceptible ug/mL Cefotaxime <=0.25 Susceptible ug/mL Ceftriaxone <=0.25 Susceptible ug/mL Vancomycin 0.5 Susceptible ug/mL Meropenem <=0.06 Susceptible ug/mL Blood Culture Arm, Right Specimen: Arm, Right; Blood Result Value Ref Range Culture No growth after 3 days Results for orders placed or performed during the hospital encounter of 01/09/24 Blood Culture Peripheral Blood Specimen: Peripheral Blood Result Value Ref Range Culture No Growth Blood Culture Peripheral Blood Specimen: Peripheral Blood Result Value Ref Range Culture No Growth Results for orders placed or performed during the hospital encounter of 01/08/24 Blood Culture Peripheral Blood Specimen: Peripheral Blood Result Value Ref Range Culture Positive on the 2nd day of incubation (A) Culture Lactobacillus species (AA) Culture Actinomyces odontolyticus (AA) Susceptibility [place] (Actinomyces) odontolytica - [place] Penicillin 0.094 Susceptible ug/mL Amoxicillin/Clavulanate 0.19 Susceptible ug/mL Ceftriaxone 0.75 Susceptible ug/mL Clindamycin 0.50 Susceptible ug/mL Meropenem 0.25 Susceptible ug/mL metronidazole 16 Intermediate ug/mL Lactobacillus species - [place]* Ampicillin 0.064 Susceptible ug/mL Penicillin 0.064 Susceptible ug/mL Clindamycin 0.125 Susceptible ug/mL Gentamicin <=0.064 No interpretation available ug/mL Levofloxacin >32 No interpretation available ug/mL Vancomycin >256 Resistant ug/mL * Antibiotics listed as No Interpretation have no regulatory guidelines for susceptibility/resistance available. Blood Culture Peripheral Blood Specimen: Peripheral Blood Result Value Ref Range Culture No Growth Results for orders placed or performed during the hospital encounter of 11/23/23 Blood Culture Peripheral Blood Specimen: Peripheral Blood Result Value Ref Range Culture No Growth Blood Culture Peripheral Blood Specimen: Peripheral Blood Result Value Ref Range Culture No Growth Results for orders placed or performed during the hospital encounter of 11/10/23 Blood Culture Arm, Left Specimen: Arm, Left; Blood Result Value Ref Range Culture No Growth Blood Culture Wrist, Left Specimen: Wrist, Left; Blood Result Value Ref Range Culture No Growth Blood Culture Hand, Left Specimen: Hand, Left; Blood Result Value Ref Range Culture No Growth Blood Culture Hand, Right Specimen: Hand, Right; Blood Result Value Ref Range Culture No Growth Blood Culture Hand, Left Specimen: Hand, Left; Blood Result Value Ref Range Culture No Growth Blood Culture Hand, Left Specimen: Hand, Left; Blood Result Value Ref Range Culture No Growth Blood Culture Peripheral Blood Specimen: Peripheral Blood Result Value Ref Range Culture Positive on the 2nd day of incubation (A) Culture Bacillus species, not anthracis nor cereus group (AA) Culture [place] dubliniensis (AA) Culture [place] lipolytica (AA) Susceptibility Bacillus species, not anthracis nor cereus group - [place] Ampicillin 0.094 Susceptible ug/mL Penicillin 0.064 Susceptible ug/mL Ciprofloxacin 0.094 Susceptible ug/mL Clindamycin 4 Resistant ug/mL Gentamicin 0.064 Susceptible ug/mL Levofloxacin 0.094 Susceptible ug/mL Vancomycin 0.75 Susceptible ug/mL [place] dubliniensis - [place]* Amphotericin B 0.5 No interpretation available ug/mL Micafungin 0.06 No interpretation available ug/mL Fluconazole 0.5 No interpretation available ug/mL Voriconazole <=0.008 No interpretation available ug/mL * Antibiotics listed as No Interpretation have no regulatory guidelines for susceptibility/resistance available. Testing for antifungal agents was validated in house by the [facility] ([facility]) [place], [place] Blood Culture Peripheral Blood Specimen: Peripheral Blood Result Value Ref Range Culture Positive on the 2nd day of incubation (A) Culture [place] lipolytica (AA) Results for orders placed or performed during the hospital encounter of 11/09/23 Blood Culture Peripheral Blood Specimen: Peripheral Blood Result Value Ref Range Culture Positive on the 2nd day of incubation (A) Culture Anderson lipolytica (AA) Susceptibility [place] lipolytica - [place]* Amphotericin B 2.0 No interpretation available ug/mL Micafungin 0.5 No interpretation available ug/mL Fluconazole 4.0 No interpretation available ug/mL Voriconazole 0.06 No interpretation available ug/mL * Antibiotics listed as No Interpretation have no regulatory guidelines for susceptibility/resistance available. Testing for antifungal agents was validated in house by the [facility] ([facility]) [place], [place] Blood Culture Peripheral Blood Specimen: Peripheral Blood Result Value Ref Range Culture Positive on the 2nd day of incubation (A) Culture [place] lipolytica (AA) Results for orders placed or performed during the hospital encounter of 10/28/23 Blood Culture Line, venous Specimen: Line, venous; Blood Result Value Ref Range Culture No Growth Blood Culture Peripheral Blood Specimen: Peripheral Blood Result Value Ref Range Culture Positive on the 1st day of incubation (A) Culture Enterobacter cloacae complex (AA) Culture Enterococcus faecalis (AA) Susceptibility Enterobacter cloacae complex - [place] Ampicillin* Resistant * Intrinsically Resistant Ampicillin/ Sulbactam* Resistant * Intrinsically Resistant Piperacillin/Tazobactam 8 Susceptible ug/mL Ceftazidime <=1 Susceptible ug/mL Ceftriaxone 4 Resistant ug/mL Cefepime <=1 Susceptible ug/mL Meropenem <=0.25 Susceptible ug/mL Gentamicin <=1 Susceptible ug/mL Tobramycin <=1 Susceptible ug/mL Ciprofloxacin <=0.25 Susceptible ug/mL Levofloxacin <=0.12 Susceptible ug/mL Trimethoprim/Sulfamethoxazole >16/304 Resistant ug/mL Enterococcus faecalis - [place] Ampicillin <=2 Susceptible ug/mL Gentamicin Synergy* Susceptible Susceptible ug/mL * No high level gentamicin resistance found - therefore combination therapy with an aminoglycoside may be indicated for serious enterococcal infections such as bacteremia and endocarditis. Vancomycin 2 Susceptible ug/mL Blood Culture Arm, Right Specimen: Arm, Right; Blood Result Value Ref Range Culture No Growth Results for orders placed or performed during the hospital encounter of 10/23/23 Blood Culture Peripheral Blood Specimen: Peripheral Blood Result Value Ref Range Culture Positive on the 1st day of incubation (A) Culture Klebsiella pneumoniae ESBL (AA) Susceptibility Klebsiella pneumoniae ESBL - [place]* Ampicillin* Resistant * Intrinsically Resistant Piperacillin/Tazobactam <=4 Susceptible ug/mL Ceftazidime Resistant Ceftriaxone Resistant Cefepime Resistant Meropenem* <=0.25 Susceptible ug/mL * Enterobacterales that are susceptible to meropenem are usually susceptible to ertapenem. Gentamicin >=16 Resistant ug/mL Tobramycin 8 Intermediate ug/mL Ciprofloxacin 1 Resistant ug/mL Levofloxacin 1 Intermediate ug/mL Trimethoprim/Sulfamethoxazole <=1/19 Susceptible ug/mL * ESBL (extended spectrum beta lactamase) producing organisms require contact precautions. Blood Culture Peripheral Blood Specimen: Peripheral Blood Result Value Ref Range Culture Positive on the 1st day of incubation (A) Culture Klebsiella pneumoniae (AA) Results for orders placed or performed during the hospital encounter of 06/03/23 Blood Culture Line, venous Specimen: Line, venous; Blood Result Value Ref Range Culture No Growth Results for orders placed or performed during the hospital encounter of 05/04/23 Blood Culture Arm, Right Specimen: Arm, Right; Blood Result Value Ref Range Culture No Growth Blood Culture Arm, Left Specimen: Arm, Left; Blood Result Value Ref Range Culture No Growth Blood Culture Hand, Left Specimen: Hand, Left; Blood Result Value Ref Range Culture No Growth Blood Culture Hand, Left Specimen: Hand, Left; Blood Result Value Ref Range Culture No Growth Blood Culture Peripheral Blood Specimen: Peripheral Blood Result Value Ref Range Culture Positive on the 1st day of incubation (A) Culture Streptococcus anginosus (AA) Culture Staphylococcus aureus (AA) Culture Staphylococcus hominis (AA) Culture Streptococcus mitis (AA) Susceptibility Staphylococcus aureus - [place] Oxacillin* 0.5 Susceptible ug/mL * Oxacillin susceptible isolates are susceptible to cephalosporins (example: cefazolin and cephalexin) and beta lactam combination agents. Oxacillin resistant isolates are resistant to these agents. Gentamicin <=0.5 Susceptible ug/mL Erythromycin <=0.25 Susceptible ug/mL Clindamycin <=0.25 Susceptible ug/mL Vancomycin <=0.5 Susceptible ug/mL Tetracycline <=1 Susceptible ug/mL Trimethoprim/Sulfamethoxazole <=0.5/9.5 Susceptible ug/mL Staphylococcus hominis - [place]* Oxacillin* Resistant * Oxacillin susceptible isolates are susceptible to cephalosporins (example: cefazolin and cephalexin) and beta lactam combination agents. Oxacillin resistant isolates are resistant to these agents. Gentamicin <=0.5 Susceptible ug/mL Ciprofloxacin <=0.5 Susceptible ug/mL Levofloxacin <=0.12 Susceptible ug/mL Erythromycin <=0.25 Susceptible ug/mL Clindamycin <=0.25 Susceptible ug/mL Vancomycin <=0.5 Susceptible ug/mL Tetracycline >=16 Resistant ug/mL * Antibiotics listed as No Interpretation have no regulatory guidelines for susceptibility/resistance available. Streptococcus anginosus - [place] Ampicillin <=0.06 Susceptible ug/mL Penicillin <=0.03 Susceptible ug/mL Clindamycin >0.5 Resistant ug/mL Cefotaxime <=0.25 Susceptible ug/mL Ceftriaxone <=0.25 Susceptible ug/mL Vancomycin 1 Susceptible ug/mL Meropenem <=0.06 Susceptible ug/mL Streptococcus mitis - [place] Ampicillin <=0.06 Susceptible ug/mL Penicillin <=0.03 Susceptible ug/mL Clindamycin <=0.06 Susceptible ug/mL Cefotaxime <=0.25 Susceptible ug/mL Ceftriaxone <=0.25 Susceptible ug/mL Vancomycin 0.5 Susceptible ug/mL Meropenem <=0.06 Susceptible ug/mL Blood Culture Peripheral Blood Specimen: Peripheral Blood Result Value Ref Range Culture Positive on the 1st day of incubation (A) Culture Staphylococcus hominis (AA) Culture Streptococcus mitis (AA) Culture Streptococcus anginosus (AA) Results for orders placed or performed during the hospital encounter of 01/04/23 Blood Culture Peripheral Blood Specimen: Peripheral Blood Result Value Ref Range Culture No Growth Blood Culture Peripheral Blood Specimen: Peripheral Blood Result Value Ref Range Culture No Growth Results for orders placed or performed during the hospital encounter of 01/08/22 Blood Culture Arm, Left Specimen: Arm, Left; Blood Result Value Ref Range Culture No Growth Blood Culture Peripheral Blood Specimen: Peripheral Blood Result Value Ref Range Culture No Growth Results for orders placed or performed during the hospital encounter of 08/15/21 Blood Culture Peripheral Blood Specimen: Peripheral Blood Result Value Ref Range Culture No Growth Blood Culture Peripheral Blood Specimen: Peripheral Blood Result Value Ref Range Culture No Growth Results for orders placed or performed during the hospital encounter of 12/23/20 Blood culture Specimen: Blood Left Arm Result Value Ref Range Specimen Description Blood Left Arm Special Requests Received in aerobic bottle only Culture Micro No growth Blood culture Specimen: PICC; Blood PICC Result Value Ref Range Specimen Description Blood PICC Culture Micro No growth Blood culture Specimen: PICC; Blood PICC Result Value Ref Range Specimen Description Blood PICC Culture Micro No growth Blood culture Specimen: Peripheral Blood Left Arm Result Value Ref Range Specimen Description Blood Left Arm Special Requests Received in aerobic bottle only Culture Micro No growth Blood culture Specimen: Blood Right Hand Result Value Ref Range Specimen Description Blood Right Hand Special Requests Received in aerobic bottle only Culture Micro No growth Blood culture Specimen: PICC; Blood PICC Result Value Ref Range Specimen Description Blood PICC Culture Micro (A) Cultured on the 1st day of incubation: Streptococcus salivarius group Culture Micro Critical Value/Significant Value, preliminary result only, called to and read back by Faith Lay RN @ 0218 12/27/20 TM. Culture Micro (Note) NEGATIVE for the following: Staphylococcus spp., Staph aureus, Staph epidermidis, Staph lugdunensis, Streptococcus spp., Strep pneumoniae, Strep pyogenes, Strep agalactiae, Strep anginosus group, Enterococcus faecalis, Enterococcus faecium, and Listeria spp. by Bangeeigene multiplex nucleic acid test. Final identification and antimicrobial susceptibility testing will be verified by standard methods. Critical Value/Significant Value called to and read back by Faith Lay RN at 0450 12/27/20 hg Susceptibility Streptococcus salivarius group - [place] Ampicillin 0.25 Susceptible ug/mL Penicillin 0.12 Susceptible ug/mL Vancomycin 0.5 Susceptible ug/mL Cefotaxime <=0.25 Susceptible ug/mL Ceftriaxone <=0.25 Susceptible ug/mL Clindamycin >0.5 Resistant ug/mL Meropenem <=0.06 Susceptible ug/mL Blood culture ONE site Specimen: Blood PICC Result Value Ref Range Specimen Description Blood PICC Culture Micro No growth Blood culture ONE site Specimen: Blood Right Hand Result Value Ref Range Specimen Description Blood Right Hand Culture Micro No growth Results for orders placed or performed during the hospital encounter of 02/29/20 Blood culture Specimen: Blood Result Value Ref Range Specimen Description Blood Special Requests Right Arm Culture Micro No growth Blood culture Specimen: Blood Result Value Ref Range Specimen Description Blood Special Requests Right Arm Culture Micro No growth Results for orders placed or performed during the hospital encounter of 08/01/19 Blood culture Specimen: Blood Right Hand Result Value Ref Range Specimen Description Blood Right Hand Special Requests Received in aerobic bottle only Culture Micro No growth Blood culture Specimen: Blood White port Result Value Ref Range Specimen Description Blood White port Special Requests Aerobic and anaerobic bottles received Culture Micro No growth Results for orders placed or performed during the hospital encounter of 05/02/19 Blood culture Specimen: Blood Left Hand Result Value Ref Range Specimen Description Blood Left Hand Special Requests Received in aerobic bottle only Culture Micro No growth Results for orders placed or performed during the hospital encounter of 07/19/17 Blood culture Specimen: Blood Left Arm Result Value Ref Range Specimen Description Blood Left Arm Special Requests Aerobic and anaerobic bottles received Culture Micro No growth Blood culture Specimen: Blood Left Hand Result Value Ref Range Specimen Description Blood Left Hand Special Requests Aerobic and anaerobic bottles received Culture Micro (A) Cultured on the 2nd day of incubation: Corynebacterium species Culture Micro Critical Value/Significant Value, preliminary result only, called to and read back by Li Hodges RN, LEONOR. 07/22/17 @0904. SC[facility] Culture Micro (Note) NEGATIVE for the following: Staphylococcus spp., Staph aureus, Staph epidermidis, Staph lugdunensis, Streptococcus spp., Strep pneumoniae, Strep pyogenes, Strep agalactiae, Strep anginosus group, Enterococcus faecalis, Enterococcus faecium, and Listeria spp. by Bangeeigene multiplex nucleic acid test. Final identification and antimicrobial susceptibility testing will be verified by standard methods. Susceptibility Corynebacterium species - E-TEST Ceftriaxone 6.0 Resistant ug/mL Clindamycin 0.50 Susceptible ug/mL Levofloxacin* 0.75 No interpretation available ug/mL * MICs (minimum inhibitory concentrations) of antibiotics which include No Interpretation means there are no national regulatory guidelines for interpretation available. MICs with a greater than sign (>) should be considered resistant for safety reasons. Further advice can be sought from [facility],Pharm Ds, and Infectious Diseases consultants. Penicillin 0.38 Intermediate ug/mL Vancomycin 0.25 Susceptible ug/mL Trimethoprim/Sulfamethoxazole 0.003 Susceptible ug/mL Meropenem 3.0 Resistant ug/mL Results for orders placed or performed during the hospital encounter of 07/27/16 Blood culture Specimen: Blood Result Value Ref Range Specimen Description Blood Left Hand Special Requests Aerobic and anaerobic bottles received Culture Micro No growth Micro Report Status FINAL 08/04/2016 Blood culture Specimen: Blood Result Value Ref Range Specimen Description Blood Left Hand Culture Micro No growth Micro Report Status FINAL 08/04/2016 Results for orders placed or performed during the hospital encounter of 09/21/15 Blood culture ONE site Specimen: Blood Result Value Ref Range Specimen Description Blood Unspecified Site Culture Micro No growth Micro Report Status FINAL 09/27/2015 Results for orders placed or performed during the hospital encounter of 03/20/14 Blood culture Specimen: Blood Result Value Ref Range Specimen Description Blood Right Arm Special Requests Aerobic and anaerobic bottles received Culture Micro No growth Micro Report Status FINAL 03/26/2014 Blood culture Specimen: Arm, Left; Blood Result Value Ref Range Specimen Description Blood Left Arm Special Requests Aerobic and anaerobic bottles received Culture Micro No growth Micro Report Status FINAL 03/26/2014 Results for orders placed or performed during the hospital encounter of 01/21/14 Blood culture Specimen: Blood Result Value Ref Range Specimen Description Blood Right Hand Special Requests Aerobic and anaerobic bottles received Culture Micro No growth Micro Report Status FINAL 01/27/2014 Blood culture Specimen: PICC; Blood Result Value Ref Range Specimen Description Blood PICC Special Requests Aerobic and anaerobic bottles received Culture Micro No growth Micro Report Status FINAL 01/27/2014 Results for orders placed or performed during the hospital encounter of 01/19/14 Blood culture ONE site Specimen: PICC; Blood Result Value Ref Range Specimen Description Blood PICC Culture Micro (A) Cultured on the 2nd day of incubation: Staphylococcus epidermidis Critical Value, preliminary result only, called to and read back by Mary Pooz RN 01/21/14 @0014 AV Micro Report Status FINAL 01/23/2014 Susceptibility Cultured on the 2nd day of incubation: staphylococcus epidermidis ([place]) - (no method available) Ciprofloxacin <=0.5 Susceptible ug/mL Clindamycin >=8 Resistant ug/mL Erythromycin >=8 Resistant ug/mL Gentamicin <=0.5 Susceptible ug/mL Levofloxacin <=0.12 Susceptible ug/mL Oxacillin >=4 Resistant ug/mL Penicillin >=0.5 Resistant ug/mL Tetracycline 2 Susceptible ug/mL Vancomycin 2 Susceptible ug/mL Trimethoprim/Sulfamethoxazole Value in next row ug/mL <=0.5/9.5 Susceptible *Note: Due to a large number of results and/or encounters for the requested time period, some results have not been displayed. A complete set of results can be found in Results Review. Urine culture: Results for orders placed or performed during the hospital encounter of 01/08/24 Urine Culture Specimen: Urine, Midstream Result Value Ref Range Culture <10,000 CFU/mL Mixture of Urogenital Loan Results for orders placed or performed during the hospital encounter of 11/23/23 Urine Culture Specimen: Urine, Clean Catch Result Value Ref Range Culture <10,000 CFU/mL Mixture of Urogenital Loan Results for orders placed or performed during the hospital encounter of 11/10/23 Urine Culture Specimen: Urine, Clean Catch Result Value Ref Range Culture <10,000 CFU/mL Urogenital loan Results for orders placed or performed during the hospital encounter of 11/09/23 Urine Culture Specimen: Urine, Clean Catch Result Value Ref Range Culture No Growth Results for orders placed or performed during the hospital encounter of 10/28/23 Urine Culture Specimen: Urine, Clean Catch Result Value Ref Range Culture <10,000 CFU/mL Urogenital loan Urine Culture Specimen: Urine, Midstream Result Value Ref Range Culture <10,000 CFU/mL Urogenital loan Results for orders placed or performed during the hospital encounter of 10/23/23 Urine Culture Specimen: Urine, Midstream Result Value Ref Range Culture No Growth Results for orders placed or performed during the hospital encounter of 09/04/23 Urine Culture Specimen: Urine, Midstream Result Value Ref Range Culture 50,000-100,000 CFU/mL Mixture of urogenital loan Results for orders placed or performed during the hospital encounter of 06/18/23 Urine Culture Specimen: Urine, Midstream Result Value Ref Range Culture >100,000 CFU/mL Mixture of urogenital loan Results for orders placed or performed during the hospital encounter of 01/04/23 Urine Culture Specimen: Urine, Clean Catch Result Value Ref Range Culture 50,000-100,000 CFU/mL Mixture of urogenital loan Results for orders placed or performed during the hospital encounter of 04/17/21 Urine Culture Aerobic Bacterial Specimen: Midstream Urine Result Value Ref Range Specimen Description Midstream Urine Special Requests Specimen received in preservative Culture Micro 50,000 to 100,000 colonies/mL mixed urogenital loan Susceptibility testing not routinely done Results for orders placed or performed during the hospital encounter of 08/01/19 Urine Culture Aerobic Bacterial Specimen: Midstream Urine Result Value Ref Range Specimen Description Midstream Urine Special Requests Specimen received in preservative Culture Micro No growth Results for orders placed or performed during the hospital encounter of 07/27/16 Urine Culture Aerobic Bacterial Specimen: Urine Result Value Ref Range Specimen Description Midstream Urine Special Requests Specimen received in preservative Culture Micro 50,000 to 100,000 colonies/mL mixed urogenital loan Micro Report Status FINAL 07/28/2016 Results for orders placed or performed during the hospital encounter of 12/09/15 Urine Culture Aerobic Bacterial Result Value Ref Range Specimen Description Midstream Urine Special Requests Specimen received in preservative Culture Micro No growth Micro Report Status FINAL 12/10/2015 Results for orders placed or performed during the hospital encounter of 03/26/14 Urine culture Result Value Ref Range Specimen Description Midstream Urine Special Requests Specimen received in preservative Culture Micro (A) 50,000 to 100,000 colonies/mL Beta hemolytic Streptococcus group B Group B Streptococcus may be significant in OB patients, however, it is part of the normal urogenital lona. Group B Streptococci are susceptible to ampicillin, penicillin, and cefazolin, but may be erythromycin and/or clindamycin resistant. Contact Microbiology if your patient is allergic to penicillin and you need erythromycin and/or clindamycin testing to be performed. Clindamycin and Erythromycin are not routinely prescribed for isolates from the urinary tract. Susceptibility testing must be requested within 5 days. 50,000 to 100,000 colonies/mL Mixed gram negative and positive loan Multiple species present, probable perineal contamination. Micro Report Status FINAL 03/29/2014 Results for orders placed or performed during the hospital encounter of 03/20/14 Urine culture Result Value Ref Range Specimen Description Midstream Urine Special Requests Specimen received in preservative Culture Micro 10,000 to 50,000 colonies/mL Mixed gram positive and gram negative bacteria present. Multiple species present, probable perineal contamination. Micro Report Status FINAL 03/22/2014 Results for orders placed or performed during the hospital encounter of 01/21/14 Urine culture Specimen: Urine clean catch Result Value Ref Range Specimen Description Midstream Urine Special Requests Specimen received in preservative Culture Micro 50,000 to 100,000 colonies/mL Mixed gram positive loan Multiple species present, probable perineal contamination. Susceptibility testing not routinely done Micro Report Status FINAL 01/23/2014 *Note: Due to a large number of results and/or encounters for the requested time period, some results have not been displayed. A complete set of results can be found in Results Review. * Opal Connell LGSW - 03/06/2024 9:57 AM CDTAssociated Order(s): CARE MANAGEMENT / SOCIAL WORK IP CONSULT Care Management Initial Consult General Information Assessment completed with: Patient, Type of CM/SW Visit: Initial Assessment Primary Care Provider verified and updated as needed: Yes Readmission within the last 30 days: no previous admission in last 30 days Reason for Consult: discharge planning Advance Care Planning: Communication Assessment Patient's communication style: spoken language (Lao or Bilingual) Cognitive Cognitive/Neuro/Behavioral: WDL Living Environment: People in home: child(almita), dependent Current living Arrangements: house Able to return to prior arrangements: yes Family/Social Support: Care provided by: self Provides care for: no one Marital Status: Other (specify) Description of Support System: Involved, Supportive Support Assessment: Adequate family and caregiver support Current Resources: Patient receiving home care services: No Community Resources: None Equipment currently used at home: Supplies currently used at home: None Employment/Financial: Employment Status: Financial Concerns: Does the patient's insurance plan have a 3 day qualifying hospital stay waiver? Yes Which insurance plan 3 day waiver is available? Alternative insurance waiver Will the waiver be used for post-acute placement? No Lifestyle & Psychosocial Needs: Social Determinants of Health Food Insecurity: High Risk (08/26/2023) Food Insecurity Within the past 12 months, did you worry that your food would run out before you got money to buy more?: Yes Within the past 12 months, did the food you bought just not last and you didn???t have money to getmore?: No Depression: Not at risk (02/21/2024) PHQ-2 PHQ-2 Score: 2 Housing Stability: Low Risk (08/26/2023) Housing Stability Do you have housing? : Yes Are you worried about losing your housing?: No Tobacco Use: Low Risk (03/01/2024) Patient History Smoking Tobacco Use: Never Smokeless Tobacco Use: Never Passive Exposure: Never Financial Resource Strain: Low Risk (08/26/2023) Financial Resource Strain Within the past 12 months, have you or your family members you live with been unable to get utilities (heat, electricity) when it was really needed?: No Alcohol Use: Not on file Transportation Needs: High Risk (08/26/2023) Transportation Needs Within the past 12 months, has lack of transportation kept you from medical appointments, getting your medicines, non-medical meetings or appointments, work, or from getting things that you need?: Yes Physical Activity: Not on file Interpersonal Safety: Not on file Stress: Not on file Social Connections: Not on file Functional Status: Prior to admission patient needed assistance: Dependent ADLs:: Independent Dependent IADLs:: Independent Assesssment of Functional Status: Not at baseline with ADL Functioning Mental Health Status: Chemical Dependency Status: Values/Beliefs: Spiritual, Cultural Beliefs, Druze Practices, Values that affect care: Additional Information: Pt admitted with positive blood cultures, noted to have unplanned readmission risk of 96%. SW met with pt while boarding in the ED due to elevated risk score. Pt reports that she lives in a home withher 3 dependent children and is independent with mobility and cares at baseline. Pts children are being cared for by her ex while she is in the hospital. Pt reports that she has supportive friends in the area. Pt was previously open with [facility] but is not receiving these services any longer. Pt verifies her PCP as listed in the chart and states that she has a are Coordinator named Ashely,she is unsure of her phone number. Noted ID is consulted. SW following. Opal Connell/KATJA Law LGSW Inpatient Care Coordination Emergency Room [employer] [phone] Opal Connell LGSW documented in this encounter ED Notes * Milady Bear RN - 03/06/2024 7:14 PM CDT [facility] ED Boarding Nurse Handoff Addendum Report: Date/time: 03/06/2024, 6:14 PM Activity Level: assist of 1 Fall Risk: Yes: nonskid shoes/slippers when out of bed, patient and family education, assistive device/personal items within reach, and activity supervised Active Infusions: NA Current Meds Due: NA Current care needs: Pain management. Oxygen requirements (liters/min and/or FiO2): NA Respiratory status: Room air Vital signs (within last 30 minutes): Vitals: 03/05/24 2210 03/06/24 0012 03/06/24 0743 03/06/24 1546 BP: 109/70 120/61 107/74 132/87 BP Location: Left arm Left arm Right arm Pulse: 99 104 64 106 Resp: 16 16 18 Temp: 97.8 ??F (36.6 ??C) 97.6 ??F (36.4 ??C) 98.2 ??F (36.8 ??C) TempSrc: Oral Oral Oral SpO2: 96% 96% 90% Weight: Height: Focused assessment within last 30 minutes: A&Ox4. Back pain reported, PRN dilaudid given. Pt up to bedside commode to void. 2 point hgb drop since last night. ID/Neuro-surgery consults complete. SW following. Care provided [id number] ED Boarding Nurse name: Milady N Chema, RN * Cassandra Fontaine RN - 03/05/2024 11:34 PM CDT Bed: ED21 Expected date: Expected time: Means of arrival: Comments: 37 for Shelley * Rivka Solis RN - 03/05/2024 11:32 PM CDT [facility] ED Nurse Handoff Report ED Chief complaint: Abnormal Labs and Fever . ED Diagnosis: Final diagnoses: Positive blood culture Anemia Back pain Hypokalemia Allergies: Allergies Allergen Reactions Chlorhexidine Itching and Swelling Droperidol Swelling seizures, tongue swelling Nsaids Anaphylaxis Sulfa Antibiotics Anaphylaxis SOB, swelling-fingers Compazine [Prochlorperazine] Other (See Comments) Muscle twitching Metoclopramide Other (See Comments) Muscle twitching w IV only; tolerates oral fine Olanzapine Muscle twitching Phenergan [Promethazine] Muscles twitch on own, pt freaks out Phenothiazines Anxiety and Muscle Pain (Myalgia) Dystonic reaction, delirium Zofran [Ondansetron Hcl] Other (See Comments) Pt does not want to receive. She reports trouble breathing, flushing, itching, long QT Contrast Dye Hives, Itching and Cough Pt can tolerate if given 25 mg benadryl PIV prior to contrast Code Status: Full Code Activity level - Baseline/Home: independent. Activity Level - Current: assist of 1. Lift room needed: Yes. Bariatric: No Summer Nanny Needed: No Isolation: Yes. Infection: Not Applicable ESBL. Respiratory status: Room air Vital Signs (within 30 minutes): Vitals: 03/05/24205203/05/24205303/05/24 2210 BP: (!) 160/79 109/70 Pulse: 113 99 Resp: 20 Temp: 98.9 ??F (37.2 ??C) TempSrc: Oral SpO2: 97% Weight: 88.5 kg (195 lb) Height: 1.676 m (5' 6) Cardiac Rhythm: , Pain level: Patient confused: No. Patient Falls Risk: bed/chair alarm on and activity supervised. Elimination Status: Has voided Patient Report - Initial Complaint: Patient arrives after receiving call for positive blood cultures from Wednesday's visit. Concerned due to back pain. Pt is anxious in triage. Has felt chills/feverishtoday. Triage Assessment (Adult) Row Name 03/05/242050 Triage Assessment Airway WDL WDL Respiratory WDL Respiratory WDL WDL Skin Circulation/Temperature WDL Skin Circulation/Temperature WDL WDL Cardiac WDL Cardiac WDL WDL Peripheral/Neurovascular WDL Peripheral Neurovascular WDL WDL Cognitive/Neuro/Behavioral WDL Cognitive/Neuro/Behavioral WDL WDL . Focused Assessment: A&OX4. See care plan for background. High medical usage. Patient is pleasant and cooperative at this time. Last hospitalization called an WEIGHER PACKING on herself due to not received IVP benadryl. Abnormal Results: Labs Ordered and Resulted from Time of ED Arrival to Time of ED Departure BASIC METABOLIC PANEL - Abnormal Result Value Sodium 137 Potassium 3.2 (*) Chloride 100 Carbon Dioxide (CO2) 23 Anion Gap 14 Urea Nitrogen 4.3 (*) Creatinine 0.63 GFR Estimate >90 Calcium 8.3 (*) Glucose 106 (*) CRP INFLAMMATION - Abnormal CRP Inflammation 142.72 (*) ERYTHROCYTE SEDIMENTATION RATE AUTO - Abnormal Erythrocyte Sedimentation Rate 37 (*) CBC WITH PLATELETS AND DIFFERENTIAL - Abnormal WBC Count 12.9 (*) RBC Count 3.22 (*) Hemoglobin 9.5 (*) Hematocrit 28.9 (*) MCV 90 MCH 29.5 MCHC 32.9 RDW 17.2 (*) Platelet Count 239 % Neutrophils 72 % Lymphocytes 18 % Monocytes 8 % Eosinophils 1 % Basophils 0 % Immature Granulocytes 1 NRBCs per 100 WBC 0 Absolute Neutrophils 9.3 (*) Absolute Lymphocytes 2.3 Absolute Monocytes 1.1 Absolute Eosinophils 0.1 Absolute Basophils 0.0 Absolute Immature Granulocytes 0.1 Absolute NRBCs 0.0 LACTIC ACID WHOLE BLOOD - Normal Lactic Acid 1.3 OCCULT BLOOD STOOL - Normal Occult Blood Negative MAGNESIUM - Normal Magnesium 1.8 ROUTINE UA WITH MICROSCOPIC REFLEX TO CULTURE BLOOD CULTURE BLOOD CULTURE No orders to display Treatments provided: see MAR and notes. Family Comments: NA OBS brochure/video discussed/provided to patient: Yes ED Medications: Medications sodium chloride (PF) 0.9% PF flush 10-20 mL (has no administration in time range) sodium chloride (PF) 0.9% PF flush 10-20 mL (has no administration in time range) sodium chloride (PF) 0.9% PF flush 10-20 mL (10 mLs Intracatheter $Given 03/05/24 2320) heparin lock flush 10 UNIT/ML injection 5-10 mL (has no administration in time range) heparin lock flush 10 UNIT/ML injection 5-10 mL (has no administration in time range) heparin 100 unit/mL injection 5-10 mL (has no administration in time range) ceFAZolin (ANCEF) 2 g in 100 mL D5W intermittent infusion (2 g Intravenous $New Bag 03/05/24 2319) sodium chloride 0.9% BOLUS 1,000 mL (0 mLs Intravenous Stopped 03/05/24 2245) HYDROmorphone (DILAUDID) tablet 2 mg (2 mg Oral $Given 03/05/242146) apixaban ANTICOAGULANT (ELIQUIS) tablet 5 mg (5 mg Oral $Given 03/05/242146) potassium chloride (KLOR-CON) Packet 40 mEq (40 mEq Oral $Given 03/05/24 2300) Drips infusing: Yes For the majority of the shift this patient was Green. Interventions performed were see MAR / CHART. Sepsis treatment initiated: No Cares/treatment/interventions/medications to be completed following ED care: NA ED Nurse Name: Wade Bruce RN 11:32 PM RECEIVING UNIT ED HANDOFF REVIEW Above ED Nurse Handoff Report was reviewed: Yes Reviewed by: Rivka Solis RN on March 06, 2024 at 6:01 PM I Kimani called the ED to inform them the note was read: Yes * Sam Schofield MD - 03/05/2024 9:13 PM CDT Emergency Department Attending Supervision Note I evaluated this patient with Mauricio PAUL. Briefly, this patient has a complex history including previous history of fungemia and bacteremia and presents for callback of Streptococcus mitis/oralis blood culture, 1 of 2. She has a normal cardiopulmonary exam and neurologic exam. No skin findings to suggest acute infection. She endorses increasing low back pain, has leukocytosis, subjective fevers, and rising CRP, concern for possible bacteremia. Incidentally noted is acute on chronic anemia, but there is no signs or symptoms of bleeding.No trauma to suggest retroperitoneal hemorrhage and she has undergone extensive recent imaging. Previous workup was evaluated for possible discitis but is felt to be unlikely based on clinical presentation at the time. She does have poor dentition, possible nidus for infection. Defer to orthopedic for CT versus MRI imaging of the spine in the above context. Will plan for culture surveillance, empiric antibiotics, and admission for ID consult and surveillance. Review of external records: Reviewed 01/09/2024 hospitalization Visit Diagnosis, Associated Orders, and Comments ICD-10-CM 1. Positive blood culture R78.81 2. Anemia D64.9 3. Back pain M54.9 4. Hypokalemia E87.6 Sam Schofield MD [facility] Emergency Department Sam Schofield MD 03/05/24 0037 * Brisa Larry RN - 03/05/2024 8:53 PM CDT Patient arrives after receiving call for positive blood cultures from Wednesday's visit. Concerned dueto back pain. Pt is anxious in triage. Has felt chills/feverish today. Triage Assessment (Adult) Row Name 03/05/242050 Triage Assessment Airway WDL WDL Respiratory WDL Respiratory WDL WDL Skin Circulation/Temperature WDL Skin Circulation/Temperature WDL WDL Cardiac WDL Cardiac WDL WDL Peripheral/Neurovascular WDL Peripheral Neurovascular WDL WDL Cognitive/Neuro/Behavioral WDL Cognitive/Neuro/Behavioral WDL WDL * Verito Martínez PA-C - 03/05/2024 8:46 PM CDT History Chief Complaint: Abnormal Labs and Fever HPI Sandi Lopez is a 38 year old female with a complicated past medical history significant forport infection, bacteremia, fungemia presenting today for evaluation of a positive blood culture. Patient was evaluated here on 03/02 for evaluation of back pain. She had an MRI done as below which showed opposing endplate edema at L4-5 most consistent with degenerative changes, but also possibly consistent with a discitis or osteomyelitis picture. Neurosurgery recommended inflammatory markers at that time and ultimately, biopsy was not felt necessary. She had blood cultures drawn and was discharged home. The following day, the patient was contacted with a positive blood culture. 1 of 2 bottleshad grown strep mitis on the first day of incubation. She was called and instructed to come in; however, elected not to come in until today due to concerns for contamination and not wanting to come to the emergency department. Today, she reports continued and worsening low back pain. She continues to have numbness and weakness. She reports she is currently bound to a power recliner and is unable to get up independently. She had an episode of chills. No measured fevers. No nausea, vomiting, chest pain, shortness of breath, cough, new rashes, abdominal pain, dysuria, hematuria, urinary frequency, diarrhea, constipation, h ematemesis, hematochezia, melena, or other physical concerns. Primarily here today for evaluation of positive blood culture from 03/02/24. She is anticoagulated on Eliquis for unprovoked PE. Independent Historian: None - Patient Only Review of External Notes: MRI 03/02/24: IMPRESSION: 1. Multilevel lumbar spondylosis without high-grade [...] suspicion for discitis osteomyelitis, recommend follow-up imaging. Medications: acetaminophen (TYLENOL) 325 MG tablet apixaban ANTICOAGULANT (ELIQUIS) 5 MG tablet childrens multivitamin w/iron (FLINTSTONES COMPLETE) chewable tablet Cholecalciferol (VITAMIN D3) 50 MCG (1999 UT) CAPS cyclobenzaprine (FLEXERIL) 10 MG tablet diphenhydrAMINE (BENADRYL) 25 MG capsule EPINEPHrine (ANY BX GENERIC EQUIV) 0.3 MG/0.3ML injection 2-pack folic acid (FOLVITE) 1 MG tablet gabapentin (NEURONTIN) 800 MG tablet HYDROmorphone (DILAUDID) 2 MG tablet loperamide (IMODIUM A-D) 2 MG tablet LORazepam (ATIVAN) 1 MG tablet naloxone (NARCAN) 4 MG/0.1ML nasal spray pantoprazole (PROTONIX) 40 MG EC tablet zolpidem (AMBIEN) 10 MG tablet Past Medical History: Past Medical History: Diagnosis Date Abnormal Pap smear Allergic rhinitis Anemia 2011 Atrial flutter Borderline personality disorder Depressive disorder Drug-seeking behavior Dysthymic disorder Eating disorder Fertility problem 2010 Gastro-oesophageal reflux disease Gastroparesis H/o Seizure as child Hypertension 05/08/23 Intermittent asthma Kidney stone Kathleen-Mustafa tear Mild persistent asthma Opioid type dependence, continuous (H) 12/06/2013 Postural orthostatic tachycardia syndrome 2004 Psychogenic nonepileptic seizure PTSD (post-traumatic stress disorder) Pulmonary embolism 04/24/2014 Past Surgical History: Past Surgical History: Procedure Laterality Date ADENOIDECTOMY 1996 ANKLE SURGERY APPENDECTOMY ARTHROSCOPY KNEE WITH LATERAL MENISCECTOMY Left 08/11/2023 Procedure: 1. Left knee arthroscopy with partial lateral meniscectomy 2. Left knee extensive arthroscopic synovectomy of the medial gutter, anterior compartment, and fat pad of the left knee; Surgeon: Rafael Vela DO; Location: OR BACK SURGERY 2019 CAUTERY OF CERVIX, CRYOCAUTERY 05/2004 CERCLAGE CERVICAL 10/30/2011 Procedure:CERCLAGE CERVICAL; CERCLAGE CERVICAL; Surgeon:JACOB VAUGHAN; Location: OR CERCLAGE CERVICAL 10/30/2011 Procedure:CERCLAGE CERVICAL; REMOVAL CERVICLE CERCLAGE AND REPLACEMENT OF CERCLAGE CERVICAL; Surgeon:JACOB VAUGHAN; Location: OR CHOLECYSTECTOMY COLONOSCOPY 2014 COLPOSCOPY,LOOP ELECTRD CERVIX EXCIS 11/2004 Diagnostic pelvic laparoscopy 12/2005 ENDOSCOPIC RETROGRADE CHOLANGIOPANCREATOGRAPHY ESOPHAGOSCOPY, GASTROSCOPY, DUODENOSCOPY (EGD), COMBINED 11/23/2012 Procedure: COMBINED ESOPHAGOSCOPY, GASTROSCOPY, DUODENOSCOPY (EGD);; Surgeon: Brannon Villarreal MD; Location: GI ESOPHAGOSCOPY, GASTROSCOPY, DUODENOSCOPY (EGD), COMBINED N/A 02/13/2016 Procedure: ESOPHAGOGASTRODUODENOSCOPY; Surgeon: Meg Lee MD; Location: [facility]; Service: ESOPHAGOSCOPY, GASTROSCOPY, DUODENOSCOPY (EGD), COMBINED N/A 02/13/2016 Procedure: ESOPHAGOGASTRODUODENOSCOPY; Surgeon: Meg Lee MD; Location: [facility] Main OR; Service: ESOPHAGOSCOPY, GASTROSCOPY, DUODENOSCOPY (EGD), COMBINED N/A 05/05/2023 Procedure: ESOPHAGOGASTRODUODENOSCOPY; Surgeon: Manpreet Lorenzo MD; Location: OR ESOPHAGOSCOPY, GASTROSCOPY, DUODENOSCOPY (EGD), COMBINED N/A 06/11/2023 Procedure: Esophagogastroduodenoscopy; Surgeon: Manpreet Lorenzo MD; Location: OR ESOPHAGOSCOPY, GASTROSCOPY, DUODENOSCOPY (EGD), COMBINED N/A 12/07/2023 Procedure: Esophagoscopy, gastroscopy, duodenoscopy (EGD), combined; Surgeon: Akbar Alvares MD; Location: GI HYSTERECTOMY VAGINAL 12/2017 INSERT MIDLINE HE 02/13/2016 IR CHEST PORT PLACEMENT > 5 YRS OF AGE 0807/29/2023 IR CHEST PORT PLACEMENT > 5 YRS OF AGE 302/04/2024 IR PICC PLACEMENT > 5 YRS OF AGE 0112/24/2020 IR PORT REMOVAL LEFT 11/12/2023 IRRIGATION AND DEBRIDEMENT FOOT, COMBINED Right 2023 Procedure: Right heel debridement; Surgeon: Farrah Nguyen DPM; Location: OR LARYNGOSCOPY N/A 02/14/2016 Procedure: DIRECT LARYNGOSCOPY, UPPER ESOPHAGOSCOPY, NASAL ESOPHAGOSCOPY, CONTROLLED EPITAXIS; Surgeon: Declan Mata MD; Location: [facility] OR; Service: OOPHORECTOMY Right Talar fracture lt foot surgery 10/1998 TONSILLECTOMY & ADENOIDECTOMY 1995 TRANSESOPHAGEAL ECHOCARDIOGRAM INTRAOPERATIVE N/A 09/17/2021 Procedure: ECHOCARDIOGRAM, TRANSESOPHAGEAL, INTRAOPERATIVE; Surgeon: GENERIC ANESTHESIA PROVIDER; Location: OR TUBAL LIGATION Physical Exam Patient Vitals for the past 24 hrs: BP Temp Temp src Pulse Resp SpO2 Height Weight 03/05/242209 109/70 -- -- 99 -- -- -- -- 03/05/242053 (!) 160/79 98.9 ??F (37.2 ??C) Oral 113 20 97 % -- -- 03/05/242052 -- -- -- -- -- -- 1.676 m (5' 6) 88.5 kg (195 lb) Physical Exam BP 109/70 Pulse 99 Temp 98.9 ??F (37.2 ??C) (Oral) Resp 20 Ht 1.676 m (5' 6) Wt 88.5 kg (195 lb) LMP 12/10/2017 SpO2 97% BMI 31.47 kg/m?? General: Chronically ill-appearing. Morbidly obese. Examined in room 35. Head: Atraumatic. Normocephalic. EENT: PERRL. EOMI. Somewhat dry mucus membranes. Broken right upper molar. No sign of abscess. CV: Tachycardic and regular rhythm. Port in the right upper chest. No surrounding erythema. Respiratory: Breathing comfortably on room air. Lungs clear to auscultation bilaterally without wheezes, rhonchi, or rales. GI: Soft, non-distended. Non-tender abdomen. No rebound, rigidity, or guarding. No CVA tenderness bilaterally. Msk: Extremities without tenderness to palpation or deformity. Reproducible low back pain. Rectal: Chaperoned by Marjan THOMPSON. No bright red blood per rectum. Skin: Warm and dry. No rashes. Neuro: Awake, alert, and conversant. No focal neurologic deficits. Psych: Appropriate mood and affect. Emergency Department Course Laboratory: Labs Ordered and Resulted from Time of ED Arrival to Time of ED Departure BASIC METABOLIC PANEL - Abnormal Result Value Sodium 137 Potassium 3.2 (*) Chloride 100 Carbon Dioxide (CO2) 23 Anion Gap 14 Urea Nitrogen 4.3 (*) Creatinine 0.63 GFR Estimate >90 Calcium 8.3 (*) Glucose 106 (*) CRP INFLAMMATION - Abnormal CRP Inflammation 142.72 (*) ERYTHROCYTE SEDIMENTATION RATE AUTO - Abnormal Erythrocyte Sedimentation Rate 37 (*) CBC WITH PLATELETS AND DIFFERENTIAL - Abnormal WBC Count 12.9 (*) RBC Count 3.22 (*) Hemoglobin 9.5 (*) Hematocrit 28.9 (*) MCV 90 MCH 29.5 MCHC 32.9 RDW 17.2 (*) Platelet Count 239 % Neutrophils 72 % Lymphocytes 18 % Monocytes 8 % Eosinophils 1 % Basophils 0 % Immature Granulocytes 1 NRBCs per 100 WBC 0 Absolute Neutrophils 9.3 (*) Absolute Lymphocytes 2.3 Absolute Monocytes 1.1 Absolute Eosinophils 0.1 Absolute Basophils 0.0 Absolute Immature Granulocytes 0.1 Absolute NRBCs 0.0 LACTIC ACID WHOLE BLOOD - Normal Lactic Acid 1.3 OCCULT BLOOD STOOL - Normal Occult Blood Negative MAGNESIUM - Normal Magnesium 1.8 ROUTINE UA WITH MICROSCOPIC REFLEX TO CULTURE BLOOD CULTURE BLOOD CULTURE Emergency Department Course & Assessments: Interventions: Medications sodium chloride (PF) 0.9% PF flush 10-20 mL (has no administration in time range) sodium chloride (PF) 0.9% PF flush 10-20 mL (has no administration in time range) sodium chloride (PF) 0.9% PF flush 10-20 mL (10 mLs Intracatheter $Given 03/05/242319) heparin lock flush 10 UNIT/ML injection 5-10 mL (has no administration in time range) heparin lock flush 10 UNIT/ML injection 5-10 mL (has no administration in time range) heparin 100 unit/mL injection 5-10 mL (has no administration in time range) ceFAZolin (ANCEF) 2 g in 100 mL D5W intermittent infusion (2 g Intravenous $New Bag 03/05/242318) sodium chloride 0.9% BOLUS 1,000 mL (0 mLs Intravenous Stopped 03/05/242244) HYDROmorphone (DILAUDID) tablet 2 mg (2 mg Oral $Given 03/05/242146) apixaban ANTICOAGULANT (ELIQUIS) tablet 5 mg (5 mg Oral $Given 03/05/242146) potassium chloride (KLOR-CON) Packet 40 mEq (40 mEq Oral $Given 03/05/242299) Assessments and Consultations: Patient was seen in conjunction with attending physician Dr. Schofield. 2100 I performed my initial evaluation of the patient ED Course as of 03/05/242326 Sun Mar 05, [id number] Hemoglobin(!): 9.5 3 days ago hgb was 12.3. Patient is denying hemoptysis, hematuria, melena, or hematochezia. 2303 Results and plan discussed with patient. [address] Thurston who accepted patient to the hospitalist service. Independent Interpretation (X-rays, CTs, rhythm strip): None Social Determinants of Health affecting care: Chronic illness Disposition: The patient was admitted to the hospital under the care of Dr. Thurston. Impression & Plan Medical Decision Making: This is a medically complicated 38-year-old female coming in today with a positive blood culture that resulted 2 days ago. On arrival, vital signs notable for mild tachycardia but otherwise stable. Exam grossly unremarkable without obvious source for infection such as skin or subcutaneous tissue source, pulmonary source, or intra-abdominal source. She is not having any urinary symptoms. Repeat lab work was drawn today as above which is notable for a new anemia at 9.5, down from 12.3 three days ago. She continues to have climbing up her CRP as well and newly elevated ESR. She does have an elevated white blood cell count at 12.9, however this is not unusual for her. Hemoglobin 12.3 (03/02/24) > 9.5 (today) of unknown cause. Guaiac testing negative. She does have a history of anemia requiring blood transfusion. No recent falls or pain in the abdomen to suggest internal source of bleeding. Her only physical concern is low back pain that has been ongoing over the last several weeks. She did have an MRI performed several days ago which returned most consistent with a degenerative process. She has continued to have severe pain with this. No changes in neurologic symptoms or character ofpain. Strep mitis is not a classic contaminant, so will initiate IV antibiotics. At this time, given patient's rapidly worsening anemia and positive blood culture, plan will be for admission for IV antibiotics and trending of her hemoglobin. Diagnosis: ICD-10-CM 1. Positive blood culture R78.81 2. Anemia D64.9 3. Back pain M54.9 4. Hypokalemia E87.6 Verito Martínez PA-C March 05, 2024 [facility] Verito Martínez PA-C 03/05/24 2430 documented in this encounter Miscellaneous Notes * Plan of Care - Daisy Schmitt, PT - 03/13/2024 5:17 PM CDT Physical Therapy Discharge Summary Reason for therapy discharge: Discharged to home. Progress towards therapy goal(s). See goals on Care Plan in Epic electronic health record for goal details. Goals not met. Barriers to achieving goals: discharge from facility. Therapy recommendation(s): Continued therapy is recommended. Rationale/Recommendations: Recommend continued physical therapy to address back pain and mobility deficits. * Plan of Care - Funmilayo Warner RN - 03/13/2024 5:07 PM CDT Goal Outcome Evaluation: Pt discharged to home. Will machine pecan picker meds at [facility] in [place]. Script for po dilaudid given to pt to fill as well. Discharge instructions reviewed with pt. Per manager social responsibility here at hospital, home infusion will be contacting pt at home, bringing iv abx and supplies tomorrow. All personalbelongings were packed and taken by pt. Chest port patent, tegaderm intact. Left unit via wheelchair accompanied by NA and family. Plan of Care Reviewed With: patient Overall Patient Progress: improvingOverall Patient Progress: improving * Plan of Care - Kym Francois RN - 03/13/2024 4:15 PM CDT Please see flowsheets for detailed vital signs and assessments. Vital Signs: stable. 02 - 98% on RA. Pain: managed with scheduled and prn pain medication. CMS: Numbness to left sole, inside barbour and inside thigh - baseline. Respiratory: LS clear. GI: WDL 1x loose BM this shift. : voiding w/o difficulty, up to commode. Skin: WDL Activity: Ax1 with walker and gait belt. Diet: Regular. Plan: . Continue with plan of care. A&Ox4. Port heparin locked. Pt wants to discharge and do lumbar procedure as an outpatient. IV homecare being set up. Problem: Adult Inpatient Plan of Care Goal: Plan of Care Review Description: The Plan of Care Review/Shift note should be completed every shift. The Outcome Evaluation is a brief statement about your assessment that the patient is improving, declining, or no change. This information will be displayed automatically on your shift note. Outcome: Progressing Flowsheets (Taken 03/13/2024 1615) Plan of Care Reviewed With: patient Overall Patient Progress: improving Goal: Patient-Specific Goal (Individualized) Description: You can add care plan individualizations to a care plan. Examples of Individualizationmight be: Parent requests to be called daily at 9am for status, I have a hard time hearing out of my right ear, or Do not touch me to wake me up as it startles me. Outcome: Progressing Goal: Absence of Hospital-Acquired Illness or Injury Outcome: Progressing Intervention: Identify and Manage Fall Risk Recent Flowsheet Documentation Taken 03/13/2024 1100 by Kym Francois RN Safety Promotion/Fall Prevention: activity supervised assistive device/personal items within reach clutter free environment maintained lighting adjusted nonskid shoes/slippers when out of bed safety round/check completed Intervention: Prevent Skin Injury Recent Flowsheet Documentation Taken 03/13/2024 1100 by Kym Francois RN Body Position: supine, head elevated Taken 03/13/2024 0900 by Kym Francois RN Body Position: left side-lying Intervention: Prevent and Manage VTE (Venous Thromboembolism) Risk Recent Flowsheet Documentation Taken 03/13/2024 1100 by Kym Francois RN VTE Prevention/Management: SCDs (sequential compression devices) off Intervention: Prevent Infection Recent Flowsheet Documentation Taken 03/13/2024 1100 by Kym Francois RN Infection Prevention: equipment surfaces disinfected Goal: Optimal Comfort and Wellbeing Outcome: Progressing Goal: Readiness for Transition of Care Outcome: Progressing Problem: Pain Acute Goal: Optimal Pain Control and Function Outcome: Progressing Intervention: Optimize Psychosocial Wellbeing Recent Flowsheet Documentation Taken 03/13/2024 1100 by Kym Francois RN Supportive Measures: active listening utilized positive reinforcement provided Problem: Fall Injury Risk Goal: Absence of Fall and Fall-Related Injury Outcome: Progressing Intervention: Promote Injury-Free Environment Recent Flowsheet Documentation Taken 03/13/2024 1100 by Kym Francois RN Safety Promotion/Fall Prevention: activity supervised assistive device/personal items within reach clutter free environment maintained lighting adjusted nonskid shoes/slippers when out of bed safety round/check completed Problem: Malnutrition Goal: Improved Nutritional Intake Outcome: Progressing Problem: Oral Intake Inadequate Goal: Improved Oral Intake Outcome: Progressing Problem: Infection Goal: Absence of Infection Signs and Symptoms Outcome: Progressing Goal Outcome Evaluation: Plan of Care Reviewed With: patient Overall Patient Progress: improvingOverall Patient Progress: improving * Plan of Care - Funmilayo Gallego RN - 03/13/2024 6:55 AM CDT Goal Outcome Evaluation Plan of Care Reviewed With: patient Overall Patient Progress: improving Outcome Evaluation: NPO at midnight. PRN PO Dilaudid x3 given for pain; still reported moderate-severe pain from her lower back. Ice therapy applied. PRN Ativan IV given for anxiety, and PO Robaxin for muscle relaxant. Heparin locked. Cooperative, pleasant, and calm overnight. Possible discharge this coming Wednesday. Problem: Adult Inpatient Plan of Care Goal: Plan of Care Review Description: The Plan of Care Review/Shift note should be completed every shift. The Outcome Evaluation is a brief statement about your assessment that the patient is improving, declining, or no change. This information will be displayed automatically on your shift note. Outcome: Progressing Flowsheets (Taken 03/13/2024 0241) Outcome Evaluation: NPO at midnight. PRN PO Dilaudid x3 given for pain Ativan IV for anxiety. Cooperative, pleasant, and calm overnight. Plan of Care Reviewed With: patient Overall Patient Progress: improving Goal: Patient-Specific Goal (Individualized) Description: You can add care plan individualizations to a care plan. Examples of Individualizationmight be: Parent requests to be called daily at 9am for status, I have a hard time hearing out of my right ear, or Do not touch me to wake me up as it startles me. Outcome: Progressing Goal: Absence of Hospital-Acquired Illness or Injury Outcome: Progressing Intervention: Identify and Manage Fall Risk Recent Flowsheet Documentation Taken 03/13/2024 0100 by Funmilayo Gallego RN Safety Promotion/Fall Prevention: activity supervised assistive device/personal items within reach clutter free environment maintained increased rounding and observation increase visualization of patient lighting adjusted mobility aid in reach nonskid shoes/slippers when out of bed patient and family education room door open room near nurse's station room organization consistent safety round/check completed supervised activity Intervention: Prevent and Manage VTE (Venous Thromboembolism) Risk Recent Flowsheet Documentation Taken 03/13/202499 by Funmilayo Gallego RN VTE Prevention/Management: SCDs (sequential compression devices) off Goal: Optimal Comfort and Wellbeing Outcome: Progressing Goal: Readiness for Transition of Care Outcome: Progressing Problem: Pain Acute Goal: Optimal Pain Control and Function Outcome: Progressing Intervention: Prevent or Manage Pain Recent Flowsheet Documentation Taken 03/13/202499 by Funmilayo Gallego RN Medication Review/Management: medications reviewed Problem: Fall Injury Risk Goal: Absence of Fall and Fall-Related Injury Outcome: Progressing Intervention: Identify and Manage Contributors Recent Flowsheet Documentation Taken 03/13/202499 by Funmilayo Gallego RN Medication Review/Management: medications reviewed Intervention: Promote Injury-Free Environment Recent Flowsheet Documentation Taken 03/13/202499 by Funmilayo Gallego RN Safety Promotion/Fall Prevention: activity supervised assistive device/personal items within reach clutter free environment maintained increased rounding and observation increase visualization of patient lighting adjusted mobility aid in reach nonskid shoes/slippers when out of bed patient and family education room door open room near nurse's station room organization consistent safety round/check completed supervised activity Problem: Malnutrition Goal: Improved Nutritional Intake Outcome: Progressing Problem: Oral Intake Inadequate Goal: Improved Oral Intake Outcome: Progressing Problem: Infection Goal: Absence of Infection Signs and Symptoms Outcome: Progressing * Plan of Care - Kasey Sanchez RN - 03/12/2024 7:53 PM CDT Goal Outcome Evaluation: Plan of Care Reviewed With: patient Overall Patient Progress: no change Reporting moderate-severe pain - barely managed with medication and ice. Port dressing changed. Problem: Adult Inpatient Plan of Care Goal: Plan of Care Review Outcome: Not Progressing Flowsheets (Taken 03/12/20241951) Outcome Evaluation: PO dilaudid given q3h. NPO at midnight for biopsy. Plan of Care Reviewed With: patient Overall Patient Progress: no change Goal: Patient-Specific Goal (Individualized) Outcome: Not Progressing Goal: Absence of Hospital-Acquired Illness or Injury Outcome: Not Progressing Intervention: Identify and Manage Fall Risk Recent Flowsheet Documentation Taken 03/12/2024 1533 by Kasey Sanchez RN Safety Promotion/Fall Prevention: activity supervised assistive device/personal items within reach clutter free environment maintained increased rounding and observation increase visualization of patient lighting adjusted mobility aid in reach nonskid shoes/slippers when out of bed patient and family education room door open room near nurse's station room organization consistent safety round/check completed supervised activity Intervention: Prevent and Manage VTE (Venous Thromboembolism) Risk Recent Flowsheet Documentation Taken 03/12/2024 1533 by Kasey Sanchez RN VTE Prevention/Management: SCDs (sequential compression devices) off Goal: Optimal Comfort and Wellbeing Outcome: Not Progressing Intervention: Monitor Pain and Promote Comfort Recent Flowsheet Documentation Taken 03/12/2024 1901 by Kasey Sanchez RN Pain Management Interventions: pillow support provided repositioned rest Taken 03/12/2024 1816 by Kasey Sanchez RN Pain Management Interventions: medication (see MAR) Taken 03/12/2024 1608 by Kasey Sanchez RN Pain Management Interventions: pillow support provided repositioned rest Taken 03/12/2024 1533 by Kasey Sanchez RN Pain Management Interventions: medication (see MAR) Goal: Readiness for Transition of Care Outcome: Not Progressing Problem: Pain Acute Goal: Optimal Pain Control and Function Outcome: Not Progressing Intervention: Develop Pain Management Plan Recent Flowsheet Documentation Taken 03/12/2024 1901 by Kasey Sanchez RN Pain Management Interventions: pillow support provided repositioned rest Taken 03/12/2024 1816 by Kasey Sanchez RN Pain Management Interventions: medication (see MAR) Taken 03/12/2024 1608 by Kasey Sanchez RN Pain Management Interventions: pillow support provided repositioned rest Taken 03/12/2024 1533 by Kasey Sanchez RN Pain Management Interventions: medication (see MAR) Problem: Fall Injury Risk Goal: Absence of Fall and Fall-Related Injury Outcome: Not Progressing Intervention: Promote Injury-Free Environment Recent Flowsheet Documentation Taken 03/12/2024 1533 by Kasey Sanchez RN Safety Promotion/Fall Prevention: activity supervised assistive device/personal items within reach clutter free environment maintained increased rounding and observation increase visualization of patient lighting adjusted mobility aid in reach nonskid shoes/slippers when out of bed patient and family education room door open room near nurse's station room organization consistent safety round/check completed supervised activity Problem: Malnutrition Goal: Improved Nutritional Intake Outcome: Not Progressing Problem: Oral Intake Inadequate Goal: Improved Oral Intake Outcome: Not Progressing Problem: Infection Goal: Absence of Infection Signs and Symptoms Outcome: Not Progressing * Plan of Care - Willow Butt RN - 03/12/2024 2:12 PM CDT Goal Outcome Evaluation: Plan of Care Reviewed With: patient Overall Patient Progress: improvingOverall Patient Progress: improving Outcome Evaluation: pt hard to awaken and stay away this am. Pt was woken up to be given medications and she said she wanted her pain medications it was overdue. I said that I wanted her to be more awake and alert for a little bit before I give more. She was very upset. Wanted to see net developer software engineer c and MD. She relaxed about net developer software engineer c gave her pain medications. Pt tolerated stairs and walking with PT. Pain between 6-8 out of 10. Pt has poor po intact. Drinks water but not much else. Says she can't tolerated most food. Invanz Abx continued. Voiding. R CW port-heparin locked. Pt could use another newdressing d/t diaphoresis. She refused to let me change it yet. Educated about how we have to keep it closed and sterile. Possible discharge tomorrow if medically stable. Problem: Adult Inpatient Plan of Care Goal: Plan of Care Review Description: The Plan of Care Review/Shift note should be completed every shift. The Outcome Evaluation is a brief statement about your assessment that the patient is improving, declining, or no change. This information will be displayed automatically on your shift note. Outcome: Progressing Flowsheets (Taken 03/12/2024 4317) Outcome Evaluation: pt hard to awaken and stay away this am. pt upset when she was a Plan of Care Reviewed With: patient Goal: Patient-Specific Goal (Individualized) Description: You can add care plan individualizations to a care plan. Examples of Individualizationmight be: Parent requests to be called daily at 9am for status, I have a hard time hearing out of my right ear, or Do not touch me to wake me up as it startles me. Outcome: Progressing Goal: Absence of Hospital-Acquired Illness or Injury Outcome: Progressing Intervention: Identify and Manage Fall Risk Recent Flowsheet Documentation Taken 03/12/2024928 by Willow Butt RN Safety Promotion/Fall Prevention: activity supervised assistive device/personal items within reach clutter free environment maintained lighting adjusted mobility aid in reach nonskid shoes/slippers when out of bed patient and family education safety round/check completed supervised activity Intervention: Prevent Skin Injury Recent Flowsheet Documentation Taken 03/12/2024928 by Willow Butt RN Body Position: supine, head elevated Skin Protection: adhesive use limited Device Skin Pressure Protection: adhesive use limited Intervention: Prevent and Manage VTE (Venous Thromboembolism) Risk Recent Flowsheet Documentation Taken 03/12/2024928 by Willow Butt RN VTE Prevention/Management: SCDs (sequential compression devices) off Intervention: Prevent Infection Recent Flowsheet Documentation Taken 03/12/2024928 by Willow Butt RN Infection Prevention: equipment surfaces disinfected hand hygiene promoted rest/sleep promoted single patient room provided Goal: Optimal Comfort and Wellbeing Outcome: Progressing Intervention: Monitor Pain and Promote Comfort Recent Flowsheet Documentation Taken 03/12/2024 1248 by Willow Butt RN Pain Management Interventions: medication (see MAR) Taken 03/12/2024928 by Willow Butt RN Pain Management Interventions: medication (see MAR) Goal: Readiness for Transition of Care Outcome: Progressing Problem: Pain Acute Goal: Optimal Pain Control and Function Outcome: Progressing Intervention: Develop Pain Management Plan Recent Flowsheet Documentation Taken 03/12/2024 1248 by Willow Butt RN Pain Management Interventions: medication (see MAR) Taken 03/12/2024928 by Willow Butt RN Pain Management Interventions: medication (see MAR) Intervention: Prevent or Manage Pain Recent Flowsheet Documentation Taken 03/12/2024928 by Willow Butt RN Bowel Elimination Promotion: ambulation promoted Medication Review/Management: medications reviewed Intervention: Optimize Psychosocial Wellbeing Recent Flowsheet Documentation Taken 03/12/2024928 by Willow Butt RN Supportive Measures: active listening utilized goal-setting facilitated positive reinforcement provided self-care encouraged Problem: Fall Injury Risk Goal: Absence of Fall and Fall-Related Injury Outcome: Progressing Intervention: Identify and Manage Contributors Recent Flowsheet Documentation Taken 03/12/2024928 by Willow Butt RN Medication Review/Management: medications reviewed Intervention: Promote Injury-Free Environment Recent Flowsheet Documentation Taken 03/12/2024928 by Willow Butt RN Safety Promotion/Fall Prevention: activity supervised assistive device/personal items within reach clutter free environment maintained lighting adjusted mobility aid in reach nonskid shoes/slippers when out of bed patient and family education safety round/check completed supervised activity Problem: Malnutrition Goal: Improved Nutritional Intake Outcome: Progressing Problem: Oral Intake Inadequate Goal: Improved Oral Intake Outcome: Progressing Problem: Infection Goal: Absence of Infection Signs and Symptoms Outcome: Progressing Intervention: Prevent or Manage Infection Recent Flowsheet Documentation Taken 03/12/2024928 by Willow Butt RN Infection Management: aseptic technique maintained Isolation Precautions: cytotoxic precautions maintained * Plan of Care - Funmilayo Gallego RN - 03/12/2024 6:57 AM CDT Goal Outcome Evaluation Plan of Care Reviewed With: patient Overall Patient Progress: no change Outcome Evaluation: Pain management as needed; PRN PO Dilaudid 3x and PO Tylenol 2x given. IV Benadryl given for sudden allergic reaction due to the gelatin plus that the patient was eating for dinner. A/Ox4. VSS on RA. A1X GBW. Reported falling and hitting her bottom upon getting to the bedside commode. Provider notified. Reeducated regarding pain medications, fall, and safety protocols. Heparin locked. Plan for biopsy this coming Wednesday. Problem: Adult Inpatient Plan of Care Goal: Plan of Care Review Description: The Plan of Care Review/Shift note should be completed every shift. The Outcome Evaluation is a brief statement about your assessment that the patient is improving, declining, or no change. This information will be displayed automatically on your shift note. Outcome: Progressing Flowsheets (Taken 03/12/2024 0342) Outcome Evaluation: A/Ox4. VSS on RA. Pain management as needed PRN PO Dilaudid 2x and PO Tylenol 2x given. IV Benadryl given for sudden allergic reaction due to the gelatin plus that the patient was eating for dinner. Plan of Care Reviewed With: patient Overall Patient Progress: no change Goal: Patient-Specific Goal (Individualized) Description: You can add care plan individualizations to a care plan. Examples of Individualizationmight be: Parent requests to be called daily at 9am for status, I have a hard time hearing out of my right ear, or Do not touch me to wake me up as it startles me. Outcome: Progressing Goal: Absence of Hospital-Acquired Illness or Injury Outcome: Progressing Intervention: Identify and Manage Fall Risk Recent Flowsheet Documentation Taken 03/12/2024 020 by Funmilayo Gallego RN Safety Promotion/Fall Prevention: activity supervised assistive device/personal items within reach clutter free environment maintained lighting adjusted mobility aid in reach nonskid shoes/slippers when out of bed patient and family education safety round/check completed supervised activity Intervention: Prevent and Manage VTE (Venous Thromboembolism) Risk Recent Flowsheet Documentation Taken 03/12/2024199 by Funmilayo Gallego RN VTE Prevention/Management: SCDs (sequential compression devices) off Intervention: Prevent Infection Recent Flowsheet Documentation Taken 03/12/2024199 by Funmilayo Gallego RN Infection Prevention: hand hygiene promoted rest/sleep promoted personal protective equipment utilized equipment surfaces disinfected Goal: Optimal Comfort and Wellbeing Outcome: Progressing Goal: Readiness for Transition of Care Outcome: Progressing Problem: Pain Acute Goal: Optimal Pain Control and Function Outcome: Progressing Intervention: Optimize Psychosocial Wellbeing Recent Flowsheet Documentation Taken 03/12/2024199 by Funmilayo Gallego RN Supportive Measures: active listening utilized goal-setting facilitated positive reinforcement provided self-care encouraged Problem: Fall Injury Risk Goal: Absence of Fall and Fall-Related Injury Outcome: Progressing Intervention: Promote Injury-Free Environment Recent Flowsheet Documentation Taken 03/12/2024 0200 by Funmilayo Gallego RN Safety Promotion/Fall Prevention: activity supervised assistive device/personal items within reach clutter free environment maintained lighting adjusted mobility aid in reach nonskid shoes/slippers when out of bed patient and family education safety round/check completed supervised activity Problem: Malnutrition Goal: Improved Nutritional Intake Outcome: Progressing Problem: Oral Intake Inadequate Goal: Improved Oral Intake Outcome: Progressing Problem: Infection Goal: Absence of Infection Signs and Symptoms Outcome: Progressing Intervention: Prevent or Manage Infection Recent Flowsheet Documentation Taken 03/12/2024 0200 by Funmilayo Gallego RN Isolation Precautions: contact precautions maintained * Care Plan - Funmilayo Gallego RN - 03/11/2024 8:00 PM CDT 03/11/241999 Fall Event Patient Assessed By nurse Name of Provider Notified * Plan of Care - Willow Butt RN - 03/11/2024 6:19 PM CDT Goal Outcome Evaluation: Plan of Care Reviewed With: patient Overall Patient Progress: improvingOverall Patient Progress: improving Outcome Evaluation: possible discharge home Wednesday after Lumbar spine biopsy home IV Abx. right chest wall port hep locked, Invanz started again. Ativan given to anxity X1. Benadryl given for CT of abdomin. pt was incontinent of large amount of urine today. Problem: Adult Inpatient Plan of Care Goal: Plan of Care Review Description: The Plan of Care Review/Shift note should be completed every shift. The Outcome Evaluation is a brief statement about your assessment that the patient is improving, declining, or no change. This information will be displayed automatically on your shift note. 03/11/2024 1441 by Willow Butt RN Outcome: Progressing Flowsheets (Taken 03/11/2024 1438) Outcome Evaluation: possible discharge home Wednesday after Lumbar spine biopsy home IV Abx. right chest wall port hep locked, Invanz started again. Ativan given to anxity X1. Benadryl given for CT of abdomin. pt was incontinent of large amount of urine today. Plan of Care Reviewed With: patient Overall Patient Progress: improving 03/11/2024 1437 by Willow Butt RN Outcome: Progressing Flowsheets (Taken 03/11/20247) Plan of Care Reviewed With: patient Goal: Patient-Specific Goal (Individualized) Description: You can add care plan individualizations to a care plan. Examples of Individualizationmight be: Parent requests to be called daily at 9am for status, I have a hard time hearing out of my right ear, or Do not touch me to wake me up as it startles me. 03/11/2024 1441 by Willow Butt RN Outcome: Progressing 03/11/2024 1437 by Willow Butt RN Outcome: Progressing Goal: Absence of Hospital-Acquired Illness or Injury 03/11/2024 1441 by Willow Butt RN Outcome: Progressing 03/11/2024 143 by Willow Butt RN Outcome: Progressing Intervention: Identify and Manage Fall Risk Recent Flowsheet Documentation Taken 03/11/2024 08 by Willow Butt RN Safety Promotion/Fall Prevention: activity supervised assistive device/personal items within reach clutter free environment maintained lighting adjusted mobility aid in reach nonskid shoes/slippers when out of bed patient and family education safety round/check completed supervised activity Intervention: Prevent Skin Injury Recent Flowsheet Documentation Taken 03/11/2024 08 by Willow Butt RN Body Position: side-lying 30 degrees Skin Protection: adhesive use limited transparent dressing maintained incontinence pads utilized Device Skin Pressure Protection: pressure points protected adhesive use limited Taken 03/11/2024 0818 by Willow Butt RN Body Position: position changed independently Intervention: Prevent and Manage VTE (Venous Thromboembolism) Risk Recent Flowsheet Documentation Taken 03/11/2024 08 by Willow Butt RN VTE Prevention/Management: SCDs (sequential compression devices) off Intervention: Prevent Infection Recent Flowsheet Documentation Taken 03/11/2024 0822 by Willow Butt RN Infection Prevention: hand hygiene promoted rest/sleep promoted personal protective equipment utilized equipment surfaces disinfected Goal: Optimal Comfort and Wellbeing 03/11/2024 1441 by Willow Butt RN Outcome: Progressing 03/11/2024 1437 by Willow Butt RN Outcome: Progressing Intervention: Monitor Pain and Promote Comfort Recent Flowsheet Documentation Taken 03/11/2024 1238 by Willow Butt RN Pain Management Interventions: medication (see MAR) Taken 03/11/2024 0932 by Willow Butt RN Pain Management Interventions: medication (see MAR) Taken 03/11/2024 0818 by Willow Butt RN Pain Management Interventions: medication (see MAR) Goal: Readiness for Transition of Care 03/11/2024 1441 by Willow Butt RN Outcome: Progressing 03/11/2024 1437 by Willow Butt RN Outcome: Progressing Problem: Pain Acute Goal: Optimal Pain Control and Function 03/11/2024 1441 by Willow Butt RN Outcome: Progressing 03/11/2024 1437 by Willow Butt RN Outcome: Progressing Intervention: Develop Pain Management Plan Recent Flowsheet Documentation Taken 03/11/2024 1238 by Willow Butt RN Pain Management Interventions: medication (see MAR) Taken 03/11/2024 0932 by Willow Butt RN Pain Management Interventions: medication (see MAR) Taken 03/11/2024 0818 by Willow Butt RN Pain Management Interventions: medication (see MAR) Intervention: Prevent or Manage Pain Recent Flowsheet Documentation Taken 03/11/2024 08 by Willow Butt RN Bowel Elimination Promotion: ambulation promoted adequate fluid intake promoted Medication Review/Management: medications reviewed Intervention: Optimize Psychosocial Wellbeing Recent Flowsheet Documentation Taken 03/11/2024 0822 by Willow Butt RN Supportive Measures: active listening utilized goal-setting facilitated positive reinforcement provided self-care encouraged Problem: Fall Injury Risk Goal: Absence of Fall and Fall-Related Injury 03/11/2024 1441 by Willow Butt RN Outcome: Progressing 03/11/2024 1437 by Willow Butt RN Outcome: Progressing Intervention: Identify and Manage Contributors Recent Flowsheet Documentation Taken 03/11/2024 08 by Willow Butt RN Medication Review/Management: medications reviewed Intervention: Promote Injury-Free Environment Recent Flowsheet Documentation Taken 03/11/2024 08 by Willow Butt RN Safety Promotion/Fall Prevention: activity supervised assistive device/personal items within reach clutter free environment maintained lighting adjusted mobility aid in reach nonskid shoes/slippers when out of bed patient and family education safety round/check completed supervised activity Problem: Malnutrition Goal: Improved Nutritional Intake 03/11/2024 1441 by Willow Butt RN Outcome: Progressing 03/11/2024 1437 by Willow Butt RN Outcome: Progressing Problem: Oral Intake Inadequate Goal: Improved Oral Intake 03/11/2024 1441 by Willow Butt RN Outcome: Progressing 03/11/2024 1437 by Willow Butt RN Outcome: Progressing Problem: Infection Goal: Absence of Infection Signs and Symptoms 03/11/2024 1441 by Willow Butt RN Outcome: Progressing 03/11/2024 1437 by Willow Butt RN Outcome: Progressing Intervention: Prevent or Manage Infection Recent Flowsheet Documentation Taken 03/11/2024 08 by Willow Butt RN Isolation Precautions: contact precautions maintained * Plan of Care - Antwon Sheldon RN - 03/10/2024 11:24 PM CDT Orientation: AAOx4, VSS Pain: managed pain by PRN pain medication. O2: RA GI/: 1 person assist. 2 person assist. Purewick in placed. Skin: no edema Lung sounds: clear Activity: A1 GB with walker. Stand by assist. Diet: regular diet Protocols: K, Mg, Phos Major shift events: none Plan: biopsy by wednesday Problem: Adult Inpatient Plan of Care Goal: Plan of Care Review Description: The Plan of Care Review/Shift note should be completed every shift. The Outcome Evaluation is a brief statement about your assessment that the patient is improving, declining, or no change. This information will be displayed automatically on your shift note. Outcome: Progressing Flowsheets (Taken 03/10/2024 2324) Plan of Care Reviewed With: patient Overall Patient Progress: improving Goal: Patient-Specific Goal (Individualized) Description: You can add care plan individualizations to a care plan. Examples of Individualizationmight be: Parent requests to be called daily at 9am for status, I have a hard time hearing out of my right ear, or Do not touch me to wake me up as it startles me. Outcome: Progressing Goal: Absence of Hospital-Acquired Illness or Injury Outcome: Progressing Intervention: Identify and Manage Fall Risk Recent Flowsheet Documentation Taken 03/10/20242012 by Antwon Sheldon RN Safety Promotion/Fall Prevention: activity supervised assistive device/personal items within reach increased rounding and observation mobility aid in reach lighting adjusted nonskid shoes/slippers when out of bed patient and family education safety round/check completed supervised activity Intervention: Prevent and Manage VTE (Venous Thromboembolism) Risk Recent Flowsheet Documentation Taken 03/10/20242012 by Antwon Sheldon RN VTE Prevention/Management: SCDs (sequential compression devices) off Intervention: Prevent Infection Recent Flowsheet Documentation Taken 03/10/20242012 by Antwon Sheldon, RN Infection Prevention: equipment surfaces disinfected hand hygiene promoted rest/sleep promoted Goal: Optimal Comfort and Wellbeing Outcome: Progressing Goal: Readiness for Transition of Care Outcome: Progressing Problem: Pain Acute Goal: Optimal Pain Control and Function Outcome: Progressing Intervention: Prevent or Manage Pain Recent Flowsheet Documentation Taken 03/10/20242012 by Antwon Sheldon, RN Bowel Elimination Promotion: adequate fluid intake promoted Medication Review/Management: medications reviewed Intervention: Optimize Psychosocial Wellbeing Recent Flowsheet Documentation Taken 03/10/20242012 by Antwon Sheldon, RN Supportive Measures: active listening utilized self-care encouraged positive reinforcement provided goal-setting facilitated Problem: Fall Injury Risk Goal: Absence of Fall and Fall-Related Injury Outcome: Progressing Intervention: Identify and Manage Contributors Recent Flowsheet Documentation Taken 03/10/20242012 by Antwon Sheldon RN Medication Review/Management: medications reviewed Intervention: Promote Injury-Free Environment Recent Flowsheet Documentation Taken 03/10/20242012 by Antwon Sheldon RN Safety Promotion/Fall Prevention: activity supervised assistive device/personal items within reach increased rounding and observation mobility aid in reach lighting adjusted nonskid shoes/slippers when out of bed patient and family education safety round/check completed supervised activity Problem: Malnutrition Goal: Improved Nutritional Intake Outcome: Progressing Problem: Oral Intake Inadequate Goal: Improved Oral Intake Outcome: Progressing Problem: Infection Goal: Absence of Infection Signs and Symptoms Outcome: Progressing Intervention: Prevent or Manage Infection Recent Flowsheet Documentation Taken 03/10/20242012 by Antwon Sheldon RN Isolation Precautions: contact precautions maintained Goal Outcome Evaluation: Plan of Care Reviewed With: patient Overall Patient Progress: improvingOverall Patient Progress: improving * Plan of Care - Willow Butt RN - 03/10/2024 12:31 PM CDT Problem: Adult Inpatient Plan of Care Goal: Plan of Care Review Description: The Plan of Care Review/Shift note should be completed every shift. The Outcome Evaluation is a brief statement about your assessment that the patient is improving, declining, or no change. This information will be displayed automatically on your shift note. Outcome: Progressing Flowsheets (Taken 03/10/2024 1232) Outcome Evaluation: Discharge TBD. depends on pain management and need for IV Abx. Plan of Care Reviewed With: patient Overall Patient Progress: improving Goal: Patient-Specific Goal (Individualized) Description: You can add care plan individualizations to a care plan. Examples of Individualizationmight be: Parent requests to be called daily at 9am for status, I have a hard time hearing out of my right ear, or Do not touch me to wake me up as it startles me. Outcome: Progressing Goal: Absence of Hospital-Acquired Illness or Injury Outcome: Progressing Intervention: Identify and Manage Fall Risk Recent Flowsheet Documentation Taken 03/10/2024 0900 by Willow Butt RN Safety Promotion/Fall Prevention: activity supervised assistive device/personal items within reach increased rounding and observation mobility aid in reach lighting adjusted nonskid shoes/slippers when out of bed patient and family education safety round/check completed supervised activity Intervention: Prevent Skin Injury Recent Flowsheet Documentation Taken 03/10/2024 08 by Willow Butt RN Body Position: position changed independently Intervention: Prevent and Manage VTE (Venous Thromboembolism) Risk Recent Flowsheet Documentation Taken 03/10/2024 09 by Willow Butt RN VTE Prevention/Management: SCDs (sequential compression devices) off Intervention: Prevent Infection Recent Flowsheet Documentation Taken 03/10/2024 09 by Willow Butt RN Infection Prevention: equipment surfaces disinfected hand hygiene promoted rest/sleep promoted Goal: Optimal Comfort and Wellbeing Outcome: Progressing Intervention: Monitor Pain and Promote Comfort Recent Flowsheet Documentation Taken 03/10/2024 1147 by Willow Butt RN Pain Management Interventions: medication (see MAR) Taken 03/10/2024 0842 by iWllow Butt RN Pain Management Interventions: medication (see MAR) cold applied Goal: Readiness for Transition of Care Outcome: Progressing Problem: Pain Acute Goal: Optimal Pain Control and Function Outcome: Progressing Intervention: Develop Pain Management Plan Recent Flowsheet Documentation Taken 03/10/2024 1147 by Willow Butt RN Pain Management Interventions: medication (see MAR) Taken 03/10/2024 08 by Willow Butt RN Pain Management Interventions: medication (see MAR) cold applied Intervention: Prevent or Manage Pain Recent Flowsheet Documentation Taken 03/10/2024 09 by Willow Butt RN Bowel Elimination Promotion: adequate fluid intake promoted Medication Review/Management: medications reviewed Intervention: Optimize Psychosocial Wellbeing Recent Flowsheet Documentation Taken 03/10/2024 09 by Willow Butt RN Supportive Measures: active listening utilized self-care encouraged positive reinforcement provided goal-setting facilitated Problem: Fall Injury Risk Goal: Absence of Fall and Fall-Related Injury Outcome: Progressing Intervention: Identify and Manage Contributors Recent Flowsheet Documentation Taken 03/10/2024 09 by Willow Butt RN Medication Review/Management: medications reviewed Intervention: Promote Injury-Free Environment Recent Flowsheet Documentation Taken 03/10/2024 09 by Willow Butt RN Safety Promotion/Fall Prevention: activity supervised assistive device/personal items within reach increased rounding and observation mobility aid in reach lighting adjusted nonskid shoes/slippers when out of bed patient and family education safety round/check completed supervised activity Problem: Malnutrition Goal: Improved Nutritional Intake Outcome: Progressing Problem: Oral Intake Inadequate Goal: Improved Oral Intake Outcome: Progressing Problem: Infection Goal: Absence of Infection Signs and Symptoms Outcome: Progressing Intervention: Prevent or Manage Infection Recent Flowsheet Documentation Taken 03/10/2024 0900 by Willow Butt RN Isolation Precautions: contact precautions maintained Goal Outcome Evaluation: Plan of Care Reviewed With: patient Overall Patient Progress: improving Outcome Evaluation: Discharge depends on pain management and need for further iv antibiotics. TBD. Invanz for antibiotic therapy. Room air. Voiding. R CW port-heparin locked. Sepsis triggered. Lactic 0.7. Pain managed with Dilaudid/Tylenol. Pt refusing Robaxin. Cms-+1-+2 edema to ankles/feet &hands/wrists. Stated numbness to left foot, r inner thigh, & groin-unchanged. Pt did get up with PT and walked across francois from her room. Otherwise up to BS with assist of 1 GB/walker. At 1630 MD paged Pt developed itchy rash over chest, head, hands. [place] hot and throat was itchy. New order for IV Benadryl given. With good relieve. Pepcid IV BID started. * Plan of Care - Merary Venegas RN - 03/10/2024 8:24 AM CDT Goal Outcome Evaluation: Plan of Care Reviewed With: patient Overall Patient Progress: improvingOverall Patient Progress: improving Outcome Evaluation: Discharge depends on pain management and need for further iv antibiotics. TBD. Invanz for antibiotic therapy. Room air. Voiding. R CW port-heparin locked. UA sent. Pain managed with Dilaudid/Tylenol. Pt refusing Robaxin. Bm x1. Cms-+1-+2 edema to ankles/feet & hands/wrists.Stated numbness to left foot, r inner thigh, & groin-unchanged. Pt c/o severe allergic reactionthis am-iv benadryl given, but symptoms relieving even before Benadryl administered. No visible reaction noted and no new meds given. Unsure if this was a true reaction. Pt needs encouragement to follow her poc. No other significant issues noted overnight. Problem: Adult Inpatient Plan of Care Goal: Plan of Care Review Description: The Plan of Care Review/Shift note should be completed every shift. The Outcome Evaluation is a brief statement about your assessment that the patient is improving, declining, or no change. This information will be displayed automatically on your shift note. Outcome: Progressing Flowsheets (Taken 03/10/2024 0824) Outcome Evaluation: Discharge depends on pain management and need for further iv antibiotics. TBD. Plan of Care Reviewed With: patient Overall Patient Progress: improving * Plan of Care - Debbie Marcelo RN - 03/09/2024 5:42 PM CDT Problem: Adult Inpatient Plan of Care Goal: Plan of Care Review Description: The Plan of Care Review/Shift note should be completed every shift. The Outcome Evaluation is a brief statement about your assessment that the patient is improving, declining, or no change. This information will be displayed automatically on your shift note. 03/09/20241741 by Debbie Marcelo RN Outcome: Progressing Flowsheets (Taken 03/09/20241741) Plan of Care Reviewed With: patient Overall Patient Progress: improving 03/09/20241425 by Debbie Marcelo RN Outcome: Progressing Flowsheets (Taken 03/09/2024 142) Plan of Care Reviewed With: patient Overall Patient Progress: improving Goal: Patient-Specific Goal (Individualized) Description: You can add care plan individualizations to a care plan. Examples of Individualizationmight be: Parent requests to be called daily at 9am for status, I have a hard time hearing out of my right ear, or Do not touch me to wake me up as it startles me. 03/09/20241741 by Debbie Marcelo RN Outcome: Progressing 03/09/20241425 by Debbie Marcelo RN Outcome: Progressing Goal: Absence of Hospital-Acquired Illness or Injury 03/09/2024 1742 by Debbie Marcelo RN Outcome: Progressing 03/09/2024 1426 by Debbie Marcelo RN Outcome: Progressing Intervention: Identify and Manage Fall Risk Recent Flowsheet Documentation Taken 03/09/2024 1601 by Debbie Marcelo RN Safety Promotion/Fall Prevention: activity supervised assistive device/personal items within reach nonskid shoes/slippers when out of bed clutter free environment maintained increased rounding and observation increase visualization of patient patient and family education room near nurse's station safety round/check completed supervised activity Taken 03/09/2024 0800 by Debbie Marcelo RN Safety Promotion/Fall Prevention: activity supervised assistive device/personal items within reach nonskid shoes/slippers when out of bed clutter free environment maintained increased rounding and observation increase visualization of patient patient and family education room near nurse's station safety round/check completed supervised activity Intervention: Prevent Skin Injury Recent Flowsheet Documentation Taken 03/09/2024 1647 by Debbie Marcelo RN Body Position: position changed independently Taken 03/09/2024 1601 by Debbie Marcelo RN Body Position: position changed independently Taken 03/09/2024 0903 by Debbie Marcelo RN Body Position: right side-lying position changed independently Intervention: Prevent Infection Recent Flowsheet Documentation Taken 03/09/2024 1601 by Debbie Marcelo RN Infection Prevention: hand hygiene promoted rest/sleep promoted single patient room provided Taken 03/09/2024 0800 by Debbie Marcelo RN Infection Prevention: hand hygiene promoted rest/sleep promoted single patient room provided Goal: Optimal Comfort and Wellbeing 03/09/2024 1742 by Debbie Marcelo RN Outcome: Progressing 03/09/2024 1426 by Debbie Marcelo RN Outcome: Progressing Intervention: Monitor Pain and Promote Comfort Recent Flowsheet Documentation Taken 03/09/2024 1504 by Debbie Marcelo RN Pain Management Interventions: medication (see MAR) Taken 03/09/2024 1205 by Debbie Marcelo RN Pain Management Interventions: medication (see MAR) Taken 03/09/2024 0903 by Debbie Marcelo RN Pain Management Interventions: medication (see MAR) cold applied Taken 03/09/2024 0756 by Debbie Marcelo RN Pain Management Interventions: medication (see MAR) cold applied rest repositioned Goal: Readiness for Transition of Care 03/09/2024 174 by Debbie Marcelo RN Outcome: Progressing 03/09/2024 1426 by Debbie Marcelo RN Outcome: Progressing Problem: Pain Acute Goal: Optimal Pain Control and Function 03/09/2024 174 by Debbie Marcelo RN Outcome: Progressing 03/09/20241425 by Debbie Marcelo RN Outcome: Progressing Intervention: Develop Pain Management Plan Recent Flowsheet Documentation Taken 03/09/2024 1504 by Debbie Marcelo RN Pain Management Interventions: medication (see MAR) Taken 03/09/2024 1205 by Debbie Marcelo RN Pain Management Interventions: medication (see MAR) Taken 03/09/2024 0903 by Debbie Marcelo RN Pain Management Interventions: medication (see MAR) cold applied Taken 03/09/2024 0756 by Debbie Marcelo RN Pain Management Interventions: medication (see MAR) cold applied rest repositioned Intervention: Prevent or Manage Pain Recent Flowsheet Documentation Taken 03/09/2024 1601 by Debbie Marcelo RN Medication Review/Management: medications reviewed Taken 03/09/2024 0800 by Debbie Marcelo RN Medication Review/Management: medications reviewed Problem: Fall Injury Risk Goal: Absence of Fall and Fall-Related Injury 03/09/2024 174 by Debbie Marcelo RN Outcome: Progressing 03/09/2024 142 by Debbie Marcelo RN Outcome: Progressing Intervention: Identify and Manage Contributors Recent Flowsheet Documentation Taken 03/09/2024 1601 by Debbie Marcelo RN Medication Review/Management: medications reviewed Taken 03/09/2024 0800 by Debbie Marcelo RN Medication Review/Management: medications reviewed Intervention: Promote Injury-Free Environment Recent Flowsheet Documentation Taken 03/09/2024 1601 by Debbie Marcelo RN Safety Promotion/Fall Prevention: activity supervised assistive device/personal items within reach nonskid shoes/slippers when out of bed clutter free environment maintained increased rounding and observation increase visualization of patient patient and family education room near nurse's station safety round/check completed supervised activity Taken 03/09/2024 0800 by Debbie Marcelo RN Safety Promotion/Fall Prevention: activity supervised assistive device/personal items within reach nonskid shoes/slippers when out of bed clutter free environment maintained increased rounding and observation increase visualization of patient patient and family education room near nurse's station safety round/check completed supervised activity Problem: Malnutrition Goal: Improved Nutritional Intake 03/09/2024 174 by Debbie Marcelo RN Outcome: Progressing 03/09/2024 1426 by Debbie Marcelo RN Outcome: Progressing Problem: Oral Intake Inadequate Goal: Improved Oral Intake 03/09/2024 174 by Debbie Marcelo RN Outcome: Progressing 03/09/2024 1426 by Debbie Marcelo RN Outcome: Progressing Problem: Infection Goal: Absence of Infection Signs and Symptoms 03/09/20241741 by Debbie Marcelo RN Outcome: Progressing 03/09/2024 1426 by Debbie Marcelo RN Outcome: Progressing Intervention: Prevent or Manage Infection Recent Flowsheet Documentation Taken 03/09/2024 1601 by Debbie Marcelo RN Isolation Precautions: contact precautions maintained Taken 03/09/2024 0800 by Debbie Marcelo RN Isolation Precautions: contact precautions maintained Goal Outcome Evaluation: Plan of Care Reviewed With: patient Overall Patient Progress: improvingOverall Patient Progress: improving A/Ox4, anxious at times. CMS at baseline. Hands/feet remain swollen-IV fluids discontinued this afternoon. Awaiting UA sample-pt accidentally dropped a wipe in the urine. Switched to IV Invanz per IDdue to blood culture results. Taking Dilaudid and Robaxin for pain. Pain increased this evening after getting up to commode-one dose of Dilaudid given early per ok from MD. Pt also felt more nauseousdue to the pain, and having increased anxiety-Ativan given x1. Up with Ax1 et gait belt. Discharge plan pending per ID. * Plan of Care - Debbie Marcelo RN - 03/09/2024 5:38 PM CDT Goal Outcome Evaluation: Plan of Care Reviewed With: patient Overall Patient Progress: improving A/Ox4, anxious at times. CMS at baseline. Hands/feet remain swollen-IV fluids discontinued this afternoon. Awaiting UA sample-pt accidentally dropped a wipe in the urine. Switched to IV Invanz per IDdue to blood culture results. Taking Dilaudid and Robaxin for pain. Pain increased this evening after getting up to commode-one dose of Dilaudid given early per ok from MD. Pt also felt more nauseousdue to the pain, and having increased anxiety-Ativan given x1. Up with Ax1 et gait belt. Discharge plan pending per ID. * Provider Notification - Debbie Marcelo RN - 03/09/2024 1:52 PM CDT Pt called this RN and said she felt like she was having an allergic reaction. Did have some rednessto upper chest, as if she had been scratching, no rash noted. Also reported that her hands felt more swollen and her throat was itchy. Vitals stable, no trouble breathing. PRN dose of Benadryl given x1. Immediately after Benadryl given, pt states Oh it feels better already, my throat isn't as itchy. Page sent to Dr. Vila to notify and see if we could stop IV fluids as well, as hands are likely more swollen from the extra fluids she received in the last 24 hours. Also, pt requesting lactulose for constipation. Addendum 1355: Orders received to stop fluids and PRN lactulose-see JAN. Addendum 1653: Pt was up to commode, which caused increased pain. Pt now in bed on her hands and knees due to pain. Dose of Dilaudid isn't due until 1800, just had Robaxin. Is asking for an early dose of Dilaudid. Page sent to Dr. Vila, received response at [id number] to give dose of Dilaudid now. * Plan of Care - Ara Gordon RN - 03/09/2024 7:42 AM CDT Pt is alert and oriented x4. On room air saturating at high 90's. Got a critical lab from lab: Blood cultures positive for ESBL.Lung sounds- . Has a port. Morning labs drawn. Blood return noted. Backpain. Given dilaudid oral x3 which she mentions to help for a while. Numbness and swelling in upperand lower extremities. Edema 2+ bilaterally in both extremities. Incontinent. Has a purewick on. Urine output of 1200ml. Scopolamine patch on, on the left ear. LR running at 125ml/hr. No hallucinations. Afebrile. Contact precautions maintained for ESBL. Problem: Adult Inpatient Plan of Care Goal: Plan of Care Review Description: The Plan of Care Review/Shift note should be completed every shift. The Outcome Evaluation is a brief statement about your assessment that the patient is improving, declining, or no change. This information will be displayed automatically on your shift note. Outcome: Progressing Flowsheets (Taken 03/09/2024 0742) Outcome Evaluation: Patient alert and oriented. Pain management throughout the night. Plan of Care Reviewed With: patient Overall Patient Progress: improving Goal: Patient-Specific Goal (Individualized) Description: You can add care plan individualizations to a care plan. Examples of Individualizationmight be: Parent requests to be called daily at 9am for status, I have a hard time hearing out of my right ear, or Do not touch me to wake me up as it startles me. Outcome: Progressing Goal: Absence of Hospital-Acquired Illness or Injury Outcome: Progressing Intervention: Identify and Manage Fall Risk Recent Flowsheet Documentation Taken 03/09/2024 0100 by Ara Gordon RN Safety Promotion/Fall Prevention: safety round/check completed room organization consistent room near nurse's station nonskid shoes/slippers when out of bed lighting adjusted mobility aid in reach increase visualization of patient Intervention: Prevent Skin Injury Recent Flowsheet Documentation Taken 03/09/202499 by Ara Gordon RN Body Position: position changed independently Intervention: Prevent Infection Recent Flowsheet Documentation Taken 03/09/202499 by Ara Gordon RN Infection Prevention: single patient room provided rest/sleep promoted hand hygiene promoted Goal: Optimal Comfort and Wellbeing Outcome: Progressing Goal: Readiness for Transition of Care Outcome: Progressing Problem: Pain Acute Goal: Optimal Pain Control and Function Outcome: Progressing Intervention: Prevent or Manage Pain Recent Flowsheet Documentation Taken 03/09/202499 by Ara Gordon RN Bowel Elimination Promotion: adequate fluid intake promoted Problem: Fall Injury Risk Goal: Absence of Fall and Fall-Related Injury Outcome: Progressing Intervention: Promote Injury-Free Environment Recent Flowsheet Documentation Taken 03/09/202499 by Ara Gordon RN Safety Promotion/Fall Prevention: safety round/check completed room organization consistent room near nurse's station nonskid shoes/slippers when out of bed lighting adjusted mobility aid in reach increase visualization of patient Problem: Malnutrition Goal: Improved Nutritional Intake Outcome: Progressing Problem: Oral Intake Inadequate Goal: Improved Oral Intake Outcome: Progressing Goal Outcome Evaluation: Plan of Care Reviewed With: patient Overall Patient Progress: improvingOverall Patient Progress: improving Outcome Evaluation: Patient alert and oriented. Pain management throughout the night. * Provider Notification - Ara Gordon RN - 03/09/2024 6:38 AM CDT Critical lab: Blood cultures positive for ESBL. MD: on appropriate antibiotics. * Provider Notification - Ara Gordon RN - 03/09/2024 4:12 AM CDT Pt critical lab : Blood cultures positive for gram negative bacilli on the left hand. MD: ordered merrem and redraw labs. * Plan of Care - Jolie Crockett RN - 03/08/2024 11:01 PM CDT Goal Outcome Evaluation: Plan of Care Reviewed With: patient Overall Patient Progress: improvingOverall Patient Progress: improving Patient slept the entire shift, arouses to voices, takes medication when briefly awake, incontinentof urine, incontinent care done. Purewick applied. Lactic redraw came back at 0.8. CHG bath not done due to patient having chlorhexidine allergy. Full bath given with gown and linen change. Sitter atbedside during shift. Patient did not eat much due to being so sleepy. Port accessed for continuousLactated ringers. Continuing plan of care. Problem: Adult Inpatient Plan of Care Goal: Plan of Care Review Outcome: Progressing Flowsheets (Taken 03/08/2024 2301) Plan of Care Reviewed With: patient Overall Patient Progress: improving Goal: Patient-Specific Goal (Individualized) Outcome: Progressing Goal: Absence of Hospital-Acquired Illness or Injury Outcome: Progressing Intervention: Identify and Manage Fall Risk Recent Flowsheet Documentation Taken 03/08/20241842 by Jolie Crockett RN Safety Promotion/Fall Prevention: assistive device/personal items within reach activity supervised safety round/check completed Intervention: Prevent Skin Injury Recent Flowsheet Documentation Taken 03/08/20241842 by Jolie Crockett RN Body Position: position changed independently Intervention: Prevent and Manage VTE (Venous Thromboembolism) Risk Recent Flowsheet Documentation Taken 03/08/20241842 by Jolie Crockett RN VTE Prevention/Management: SCDs (sequential compression devices) off Intervention: Prevent Infection Recent Flowsheet Documentation Taken 03/08/20241842 by Jolie Crockett RN Infection Prevention: hand hygiene promoted rest/sleep promoted Goal: Optimal Comfort and Wellbeing Outcome: Progressing Goal: Readiness for Transition of Care Outcome: Progressing Problem: Pain Acute Goal: Optimal Pain Control and Function Outcome: Progressing Intervention: Prevent or Manage Pain Recent Flowsheet Documentation Taken 03/08/20241842 by Jolie Crockett RN Medication Review/Management: medications reviewed Problem: Fall Injury Risk Goal: Absence of Fall and Fall-Related Injury Outcome: Progressing Intervention: Identify and Manage Contributors Recent Flowsheet Documentation Taken 03/08/20241842 by Jolie Crockett RN Medication Review/Management: medications reviewed Intervention: Promote Injury-Free Environment Recent Flowsheet Documentation Taken 03/08/20241842 by Jolie Crockett RN Safety Promotion/Fall Prevention: assistive device/personal items within reach activity supervised safety round/check completed Problem: Malnutrition Goal: Improved Nutritional Intake Outcome: Progressing Problem: Oral Intake Inadequate Goal: Improved Oral Intake Outcome: Progressing * Plan of Care - Debbie Marcelo RN - 03/08/2024 4:39 PM CDT Goal Outcome Evaluation: Plan of Care Reviewed With: patient Overall Patient Progress: no change Problem: Adult Inpatient Plan of Care Goal: Plan of Care Review Description: The Plan of Care Review/Shift note should be completed every shift. The Outcome Evaluation is a brief statement about your assessment that the patient is improving, declining, or no change. This information will be displayed automatically on your shift note. 03/08/20241638 by Debbie Marcelo RN Outcome: Not Progressing Flowsheets (Taken 03/08/2024 163) Plan of Care Reviewed With: patient Overall Patient Progress: no change 03/08/20241638 by Debbie Marcelo RN Outcome: Not Progressing Flowsheets (Taken 03/08/2024 163) Plan of Care Reviewed With: patient Overall Patient Progress: no change Goal: Patient-Specific Goal (Individualized) Description: You can add care plan individualizations to a care plan. Examples of Individualizationmight be: Parent requests to be called daily at 9am for status, I have a hard time hearing out of my right ear, or Do not touch me to wake me up as it startles me. 03/08/2024 163 by Debbie Marcelo RN Outcome: Not Progressing 03/08/20241638 by Debbie Marcelo RN Outcome: Not Progressing Goal: Absence of Hospital-Acquired Illness or Injury 03/08/2024 1639 by Debbie Marcelo RN Outcome: Not Progressing 03/08/2024 1639 by Debbie Marcelo RN Outcome: Not Progressing Intervention: Identify and Manage Fall Risk Recent Flowsheet Documentation Taken 03/08/2024 0829 by Debbie Marcelo RN Safety Promotion/Fall Prevention: assistive device/personal items within reach activity supervised clutter free environment maintained increased rounding and observation increase visualization of patient nonskid shoes/slippers when out of bed patient and family education room near nurse's station safety round/check completed Intervention: Prevent Skin Injury Recent Flowsheet Documentation Taken 03/08/2024 0829 by Debbie Marcelo RN Body Position: position changed independently right side-lying Intervention: Prevent and Manage VTE (Venous Thromboembolism) Risk Recent Flowsheet Documentation Taken 03/08/2024 0829 by Debbie Marcelo RN VTE Prevention/Management: SCDs (sequential compression devices) on Goal: Optimal Comfort and Wellbeing 03/08/2024 1639 by Debbie Marcelo RN Outcome: Not Progressing 03/08/2024 1639 by Debbie Marcelo RN Outcome: Not Progressing Intervention: Monitor Pain and Promote Comfort Recent Flowsheet Documentation Taken 03/08/2024 0953 by Debbie Marcelo RN Pain Management Interventions: medication (see MAR) repositioned Taken 03/08/2024 0829 by Debbie Marcelo RN Pain Management Interventions: medication (see MAR) repositioned Taken 03/08/2024 0805 by Debbie Marcelo RN Pain Management Interventions: medication (see MAR) repositioned relaxation techniques promoted Goal: Readiness for Transition of Care 03/08/2024 1639 by Debbie Marcelo RN Outcome: Not Progressing 03/08/2024 1639 by Debbie Marcelo RN Outcome: Not Progressing Problem: Pain Acute Goal: Optimal Pain Control and Function 03/08/2024 1639 by Debbie Marcelo RN Outcome: Not Progressing 03/08/2024 1639 by Debbie Marcelo RN Outcome: Not Progressing Intervention: Develop Pain Management Plan Recent Flowsheet Documentation Taken 03/08/2024 0953 by Debbie Marcelo RN Pain Management Interventions: medication (see MAR) repositioned Taken 03/08/2024 0829 by Debbie Marcelo RN Pain Management Interventions: medication (see MAR) repositioned Taken 03/08/2024 0805 by Debbie Marcelo RN Pain Management Interventions: medication (see MAR) repositioned relaxation techniques promoted Intervention: Prevent or Manage Pain Recent Flowsheet Documentation Taken 03/08/2024 0829 by Debbie Marcelo RN Medication Review/Management: medications reviewed Problem: Fall Injury Risk Goal: Absence of Fall and Fall-Related Injury 03/08/2024 1639 by Debbie Marcelo RN Outcome: Not Progressing 03/08/2024 1639 by Debbie Marcelo RN Outcome: Not Progressing Intervention: Identify and Manage Contributors Recent Flowsheet Documentation Taken 03/08/2024 08 by Debbie Marcelo RN Medication Review/Management: medications reviewed Intervention: Promote Injury-Free Environment Recent Flowsheet Documentation Taken 03/08/2024 0829 by Debbie Marcelo RN Safety Promotion/Fall Prevention: assistive device/personal items within reach activity supervised clutter free environment maintained increased rounding and observation increase visualization of patient nonskid shoes/slippers when out of bed patient and family education room near nurse's station safety round/check completed Problem: Malnutrition Goal: Improved Nutritional Intake 03/08/2024 1639 by Debbie Marcelo RN Outcome: Not Progressing 03/08/2024 1639 by Debbie Marcelo RN Outcome: Not Progressing Problem: Oral Intake Inadequate Goal: Improved Oral Intake 03/08/2024 1639 by Debbie Marcelo RN Outcome: Not Progressing 03/08/2024 163 by Debbie Marcelo RN Outcome: Not Progressing * Significant Event - Debbie Marcelo RN - 03/08/2024 3:00 PM CDT Pt noted to have elevated temp of 103.5, tachycardic in the 140's, very anxious and restless, shakiness, and with N/V. [employer] called at 1225 IV infusion stopped immediately. Placed on O2. Ice packs applied to help bring down temp. Multiple meds given for possible reaction to IV Venofer-see MAR. Pt hadintermittent N/V throughout the morning, but this was much worse. Pt having increased confusion,hard to understand at times, and felt like she couldn't move her arms legs and felt as if she couldn't see, but would turn her head to face staff when they were talking. MD back at bedside-likely relatedto meds that were just given. At 1325 Code 21 was called as pt then attempting to get out of the bed. Now hallucinating and seeing people and objects that aren't there. When asked pt where she wantedto go, stated I just want to get up and sit over on that bench, however, there was no bench, justthe room curtain. Pt wanting to drink water, given a sip of water, looked directly at other RN and spit water out. MD back at bedside, able to redirect pt back into bed, but remains very restless. RNs remained at bedside for pt safety as pt would still attempt to sit up at times. Temp still elevated along with heart rate, but both slowly trending down. PRN Tylenol supp given for temp. Around 1400, pt became more cooperative and allowed for port needle to be changed and labs to be drawn. O2 satshovering around 90%, but keeps pulling off the oxygen tubing-remains on continuous pulse ox. Pt then became calmer and able to rest with eyes closed, resps unlabored. Sitter now at bedside for safetyuntil pt is more alert. * Provider Notification - Debbie Marcelo RN - 03/08/2024 11:20 AM CDT Pt scheduled to have iron transfusion today at noon-per pt hematology instructed her to get IV Benadryl prior to infusion. Message sent to Dr. Vila to notify and request IV Benadryl. Received order for one time dose of 25mg IV Benadryl. Addendum 1145: Pt noted to have temp of 100. Page sent to Dr. Storey to notify and see if ok to still begin iron transfusion. Received message back yes, ok to begin transfusion. * Provider Notification - Debbie Marcelo RN - 03/08/2024 8:04 AM CDT Upon entering room, pt writhing in pain, with hands and knees on the bed. Reports she turned and just got sharp, crushing pain to her lower back. Page sent to Dr. Storey to notify and request a onetime dose of IV Dilaudid. * Plan of Care - Radha Lovett RN - 03/08/2024 5:27 AM CDT Goal Outcome Evaluation: Plan of Care Reviewed With: patient Overall Patient Progress: improvingOverall Patient Progress: improving Outcome Evaluation: Possible DC home 03/08 PRN dilaudid needed overnight for pain control. Problem: Adult Inpatient Plan of Care Goal: Plan of Care Review Description: The Plan of Care Review/Shift note should be completed every shift. The Outcome Evaluation is a brief statement about your assessment that the patient is improving, declining, or no change. This information will be displayed automatically on your shift note. Outcome: Progressing Flowsheets (Taken 03/08/2024 0535) Outcome Evaluation: Possible DC home 03/08 Plan of Care Reviewed With: patient Overall Patient Progress: improving Goal: Patient-Specific Goal (Individualized) Description: You can add care plan individualizations to a care plan. Examples of Individualizationmight be: Parent requests to be called daily at 9am for status, I have a hard time hearing out of my right ear, or Do not touch me to wake me up as it startles me. Outcome: Progressing Goal: Absence of Hospital-Acquired Illness or Injury Outcome: Progressing Intervention: Identify and Manage Fall Risk Recent Flowsheet Documentation Taken 03/08/202454 by Radha Lovett RN Safety Promotion/Fall Prevention: safety round/check completed Intervention: Prevent and Manage VTE (Venous Thromboembolism) Risk Recent Flowsheet Documentation Taken 03/08/202454 by Radha Lovett RN VTE Prevention/Management: SCDs (sequential compression devices) on Intervention: Prevent Infection Recent Flowsheet Documentation Taken 03/08/202454 by Radha Lovett RN Infection Prevention: environmental surveillance performed hand hygiene promoted personal protective equipment utilized rest/sleep promoted single patient room provided Goal: Optimal Comfort and Wellbeing Outcome: Progressing Intervention: Monitor Pain and Promote Comfort Recent Flowsheet Documentation Taken 03/08/2024 0140 by Radha Lovett RN Pain Management Interventions: medication (see MAR) Goal: Readiness for Transition of Care Outcome: Progressing * Plan of Care - Rivka Solis RN - 03/07/2024 11:20 PM CDT Problem: Adult Inpatient Plan of Care Goal: Plan of Care Review Description: The Plan of Care Review/Shift note should be completed every shift. The Outcome Evaluation is a brief statement about your assessment that the patient is improving, declining, or no change. This information will be displayed automatically on your shift note. Outcome: Progressing Flowsheets (Taken 03/07/2024 2319) Outcome Evaluation: pt pain controled with dilaudid Q3hrs. No fevr, no chills for this shift. Goal: Patient-Specific Goal (Individualized) Description: You can add care plan individualizations to a care plan. Examples of Individualizationmight be: Parent requests to be called daily at 9am for status, I have a hard time hearing out of my right ear, or Do not touch me to wake me up as it startles me. Outcome: Progressing Goal: Absence of Hospital-Acquired Illness or Injury Outcome: Progressing Intervention: Identify and Manage Fall Risk Recent Flowsheet Documentation Taken 03/07/20241909 by Rivka Solis RN Safety Promotion/Fall Prevention: safety round/check completed Intervention: Prevent and Manage VTE (Venous Thromboembolism) Risk Recent Flowsheet Documentation Taken 03/07/20241909 by Rivka Solis RN VTE Prevention/Management: SCDs (sequential compression devices) on Intervention: Prevent Infection Recent Flowsheet Documentation Taken 03/07/20241909 by Rivka Solis RN Infection Prevention: environmental surveillance performed hand hygiene promoted personal protective equipment utilized rest/sleep promoted single patient room provided Goal: Optimal Comfort and Wellbeing Outcome: Progressing Intervention: Monitor Pain and Promote Comfort Recent Flowsheet Documentation Taken 03/07/20241909 by Rivka Solis RN Pain Management Interventions: medication (see MAR) Taken 03/07/2024 164 by Rivka Solis RN Pain Management Interventions: medication (see MAR) Goal: Readiness for Transition of Care Outcome: Progressing Problem: Pain Acute Goal: Optimal Pain Control and Function Outcome: Progressing Intervention: Develop Pain Management Plan Recent Flowsheet Documentation Taken 03/07/20241909 by Rivka Solis RN Pain Management Interventions: medication (see MAR) Taken 03/07/2024 164 by Rivka Solis RN Pain Management Interventions: medication (see MAR) Intervention: Prevent or Manage Pain Recent Flowsheet Documentation Taken 03/07/20241909 by Rivka Solis RN Medication Review/Management: medications reviewed Problem: Fall Injury Risk Goal: Absence of Fall and Fall-Related Injury Outcome: Progressing Intervention: Identify and Manage Contributors Recent Flowsheet Documentation Taken 03/07/20241909 by Rivka Solis RN Medication Review/Management: medications reviewed Intervention: Promote Injury-Free Environment Recent Flowsheet Documentation Taken 03/07/20241909 by Rivka Solis RN Safety Promotion/Fall Prevention: safety round/check completed Problem: Malnutrition Goal: Improved Nutritional Intake Outcome: Progressing Problem: Oral Intake Inadequate Goal: Improved Oral Intake Outcome: Progressing Goal Outcome Evaluation: Pt is A&OX4. On RA. LS CTA.pt denies SOB and cough.no chills and shakiness for this shift. Denies N/V.Tolerated regular diet. Consumed all food. Pt c/o pain and rates her lower back pain /10. Takes PRN Dilaudid q3 hrs, which is effective. Port to R/upper chest CDI. Flushed .pt is A-1 with walker and get belt . Pt has LLE weakness, numbness and tingling.voids, uses bed side commode. Outcome Evaluation: pt pain controled with dilaudid Q3hrs. No fevr, no chills for this shift. * Plan of Care - Radha Lovett RN - 03/07/2024 5:03 AM CDT Goal Outcome Evaluation: Plan of Care Reviewed With: patient Overall Patient Progress: improvingOverall Patient Progress: improving Outcome Evaluation: Possible DC to home on 03/07 Blood culture came back positive for strep. Contact precautions maintained for ESBL. Oral dilaudid for pain, lidocaine patch ordered and placed. Problem: Adult Inpatient Plan of Care Goal: Plan of Care Review Description: The Plan of Care Review/Shift note should be completed every shift. The Outcome Evaluation is a brief statement about your assessment that the patient is improving, declining, or no change. This information will be displayed automatically on your shift note. Outcome: Progressing Flowsheets (Taken 03/07/2024 0502) Outcome Evaluation: Possible DC to home on 03/07 Plan of Care Reviewed With: patient Overall Patient Progress: improving Goal: Patient-Specific Goal (Individualized) Description: You can add care plan individualizations to a care plan. Examples of Individualizationmight be: Parent requests to be called daily at 9am for status, I have a hard time hearing out of my right ear, or Do not touch me to wake me up as it startles me. Outcome: Progressing Goal: Absence of Hospital-Acquired Illness or Injury Outcome: Progressing Intervention: Identify and Manage Fall Risk Recent Flowsheet Documentation Taken 03/07/202423 by Radha Lovett RN Safety Promotion/Fall Prevention: safety round/check completed nonskid shoes/slippers when out of bed activity supervised clutter free environment maintained Intervention: Prevent and Manage VTE (Venous Thromboembolism) Risk Recent Flowsheet Documentation Taken 03/07/2024 002 by Radha Lovett RN VTE Prevention/Management: SCDs (sequential compression devices) on Intervention: Prevent Infection Recent Flowsheet Documentation Taken 03/07/2024 002 by Radha Lovett RN Infection Prevention: hand hygiene promoted personal protective equipment utilized rest/sleep promoted single patient room provided equipment surfaces disinfected Goal: Optimal Comfort and Wellbeing Outcome: Progressing Goal: Readiness for Transition of Care Outcome: Progressing * Plan of Care - Rivka Solis RN - 03/06/2024 11:08 PM CDT Problem: Adult Inpatient Plan of Care Goal: Plan of Care Review Description: The Plan of Care Review/Shift note should be completed every shift. The Outcome Evaluation is a brief statement about your assessment that the patient is improving, declining, or no change. This information will be displayed automatically on your shift note. Outcome: Progressing Flowsheets (Taken 03/06/2024 2304) Outcome Evaluation: pt on RA. A&OX4.pt said she feels betre. VSS. pain controled with PO dilaudid.Hgb-9,4. lactic-0.9. Plan of Care Reviewed With: patient Goal: Patient-Specific Goal (Individualized) Description: You can add care plan individualizations to a care plan. Examples of Individualizationmight be: Parent requests to be called daily at 9am for status, I have a hard time hearing out of my right ear, or Do not touch me to wake me up as it startles me. Outcome: Progressing Goal: Absence of Hospital-Acquired Illness or Injury Outcome: Progressing Intervention: Prevent Skin Injury Recent Flowsheet Documentation Taken 03/06/20241937 by Rivka Solis RN Body Position: position changed independently Intervention: Prevent and Manage VTE (Venous Thromboembolism) Risk Recent Flowsheet Documentation Taken 03/06/20241937 by Rivka Solis RN VTE Prevention/Management: SCDs (sequential compression devices) on Intervention: Prevent Infection Recent Flowsheet Documentation Taken 03/06/20241937 by Rivka Solis RN Infection Prevention: hand hygiene promoted personal protective equipment utilized rest/sleep promoted single patient room provided equipment surfaces disinfected Goal: Optimal Comfort and Wellbeing Outcome: Progressing Intervention: Monitor Pain and Promote Comfort Recent Flowsheet Documentation Taken 03/06/20242219 by Rivka Solis RN Pain Management Interventions: medication (see MAR) Taken 03/06/20241937 by Rivka Solis RN Pain Management Interventions: medication (see MAR) Taken 03/06/2024 191 by Rivka Solis RN Pain Management Interventions: medication (see MAR) Goal: Readiness for Transition of Care Outcome: Progressing. Intervention: Mutually Develop Transition Plan Recent Flowsheet Documentation Taken 03/06/20241999 by Rivka Solis RN Equipment Currently Used at Home: none Problem: Pain Acute Goal: Optimal Pain Control and Function Outcome: Progressing Intervention: Develop Pain Management Plan Recent Flowsheet Documentation Taken 03/06/20242219 by Rivka Solis RN Pain Management Interventions: medication (see MAR) Taken 03/06/2024 193 by Rivka Solis RN Pain Management Interventions: medication (see MAR) Taken 03/06/20241915 by Rivka Solis RN Pain Management Interventions: medication (see MAR) Problem: Fall Injury Risk Goal: Absence of Fall and Fall-Related Injury Outcome: Progressing Goal Outcome Evaluation: Plan of Care Reviewed With: patient Outcome Evaluation: pt on RA. A&OX4.pt said she feels betre. VSS. pain controled with PO dilaudid.Hgb-9,4. lactic-0.9. pt continues on contact isolation for ESBL.Pt triggered lactic when she arrived from ED. Lactic waschecked and MD was updated about pt lab results. LS CTA. No SOB no chest pain, no fever. No chills.port to R/upper chest. Pt continues Ancef IV.pt is A-1 with walker and gate belt..pt transfers with pivot. Used bedside commode, voided. Pt said she can feel urgency and can hold, but sometimes incontinent.last BM was 03/05/24.pt said has tingling to left calf and inner thigh and numbness preset to L/feet.pain managed with PO dilaudid Q3hrs. * Pharmacy-Admission Medication History - Aide Briceno [facility] - 03/06/2024 10:24 AM CDT Pharmacist Admission Medication History Admission medication history is complete. The information provided in this note is only as accurateas the sources available at the time of the update. Information Source(s): Patient and CareEverywhere/SureScripts via in-person Pertinent Information: Patient stated medroxyprogesterone showed up recently on list but she hasn't had and doesn't need. Looking at dates possible mis entry of other meds. Said flexeril was stopped on Wednesday- but had been taking up til then Changes made to [employer] medication list: Added: None Deleted: Protonix, Medroxyprogesterone, Loperamide Changed: Tylenol - had taken 4500 mg yesterday- discussed max dosing Allergies reviewed with patient and updates made in EHR: yes Medication History Completed By: Aide Briceno [facility] 03/06/2024 10:24 AM [employer] Med List Medication Sig Last Dose acetaminophen (TYLENOL) 500 MG tablet Take 1,000 mg by mouth every 4 hours as needed for mild pain 03/05/2024 at max by evening apixaban ANTICOAGULANT (ELIQUIS) 5 MG tablet Take 1 tablet (5 mg) by mouth 2 times daily 03/05/2024 at pm childrens multivitamin w/iron (FLINTSTONES COMPLETE) chewable tablet Take 1 chew tab by mouth daily03/05/2024 at am Cholecalciferol (VITAMIN D3) 50 MCG (2000 UT) CAPS Take 1 capsule by mouth daily 03/05/2024 at am diphenhydrAMINE (BENADRYL) 25 MG capsule Take 1 capsule (25 mg) by mouth every 6 hours as needed (nausea) 03/05/2024 EPINEPHrine (ANY BX GENERIC EQUIV) 0.3 MG/0.3ML injection 2-pack Inject 0.3 mLs (0.3 mg) into the muscle once as needed for anaphylaxis folic acid (FOLVITE) 1 MG tablet Take 1 mg by mouth daily Past Week gabapentin (NEURONTIN) 800 MG tablet Take 800 mg by mouth 3 times daily 03/05/2024 at 2 doses HYDROmorphone (DILAUDID) 2 MG tablet Take 1 tablet (2 mg) by mouth 2 times daily as needed for severe pain 03/05/2024 LORazepam (ATIVAN) 1 MG tablet Take 1 mg by mouth every 6 hours as needed for anxiety 03/05/2024 naloxone (NARCAN) 4 MG/0.1ML nasal spray Stopover 4 mg into one nostril alternating nostrils once as needed for opioid reversal zolpidem (AMBIEN) 10 MG tablet Take 10 mg by mouth At Bedtime 03/04/2024 * Plan of Care - Shelley Ybarra RN - 03/06/2024 7:05 AM CDT [facility] ED Boarding Nurse Handoff Addendum Report: Date/time: 03/06/2024, 5:53 AM Activity Level: assist of 1 Fall Risk: Yes: room door open Active Infusions: none Current Meds Due: n/a Current care needs: Contact precautions. Port Right chest. PRN PO Dilaudid Q3. Oxygen requirements (liters/min and/or FiO2): RA Respiratory status: Room air Vital signs (within last 30 minutes): Vitals: 03/05/24205203/05/24205303/05/24 2210 03/06/24 0012 BP: (!) 160/79 109/70 120/61 BP Location: Left arm Pulse: 113 99 104 Resp: 20 16 Temp: 98.9 ??F (37.2 ??C) 97.8 ??F (36.6 ??C) TempSrc: Oral Oral SpO2: 97% 96% Weight: 88.5 kg (195 lb) Height: 1.676 m (5' 6) Focused assessment within last 30 minutes: Pt alert and oriented x 4. On RA. Reports lower back pain. PRN PO Dilaudid given x 2. KCL replaced x 2. UA pending to collect. ED Boarding Nurse name: Shelley Menchaca RN Goal Outcome Evaluation: Problem: Adult Inpatient Plan of Care Goal: Absence of Hospital-Acquired Illness or Injury Intervention: Identify and Manage Fall Risk Recent Flowsheet Documentation Taken 03/06/2024 0300 by Shelley Ybarra, RN Safety Promotion/Fall Prevention: activity supervised clutter free environment maintained increase visualization of patient room near nurse's station safety round/check completed Intervention: Prevent Skin Injury Recent Flowsheet Documentation Taken 03/06/2024 0300 by Shelley Ybarra, RN Body Position: position changed independently Intervention: Prevent and Manage VTE (Venous Thromboembolism) Risk Recent Flowsheet Documentation Taken 03/06/2024 0300 by Shelley Ybarra, RN VTE Prevention/Management: SCDs (sequential compression devices) off Intervention: Prevent Infection Recent Flowsheet Documentation Taken 03/06/2024 0300 by Shelley Ybarra, RN Infection Prevention: hand hygiene promoted personal protective equipment utilized rest/sleep promoted single patient room provided equipment surfaces disinfected documented in this encounter Plan of Treatment Upcoming Encounters Date Type Department Care Team (Late st Contact Info) Description 05/09/2024 10:00 AM CDT Office Visit [facility] [address] [place] [address] [place] [address] [place], [place] [id number] Pending Results Name Type Priority Associated Diagnoses Date /Time Prepare red blood cells (unit) Blood Bank Routine 03/06/2024 8:50 PM CDT Prepare red blood cells (unit) Blood Bank Routine 03/06/2024 8:50 PM CDT Scheduled Orders Name Type Priority Associated Diagnoses Order Schedule Surgical Pathology Exam Pathology and Cytology Routine Osteomyelitis, unspecified site, unspecified type (H) Ordered: 03/13/2024 Microbiology Isolate Referral Microbiology Routine Osteomyelitis, unspecified site, unspecified type (H) Expected: 03/15/2024 (Approximate), Expires: 03/13/2025 IR Referral Imaging Emergency: 1-2 Days Osteomyelitis, unspecified site, unspecified type (H) Expected: 03/13/2024 (Approximate), Expires: 06/12/2024 Scheduled Referrals Name Type Priority Associated Diagnoses Orde r Schedule Physical Therapy [employer] Referral Referral Routine: Next available opening Chronic bilateral low back pain without sciatica Expected: 03/10/2024 (Approximate), Expires: 03/10/2025 Home Infusion Referral Referral Routine: Next available opening Osteomyelitis, unspecified site, unspecified type (H) Ordered: 03/13/2024 Primary Care - Care Coordination Referral Referral Routine: Next available opening Osteomyelitis, unspecified site, unspecified type (H) Expected: 03/14/2024 (Approximate), Expires: 03/14/2025 documented as of this encounter Procedures Procedure Name Priority Date/Time Associated Diagnosis Comments CBC WITH PLATELETS STAT 03/13/2024 1: 13 PM CDT CBC WITH PLATELETS AND DIFFERENTIAL Routine 03/12/2024 5:33 AM CDT CBC WITH PLATELETS & DIFFERENTIAL Routine 03/12/2024 5:33 AM CDT BASIC [...] 03/09/2024 9:37 AM CDT CBC WITH PLATELETS AND DIFFERENTIAL Routine 03/09/2024 6:18 AM CDT CBC WITH PLATELETS & DIFFERENTIAL Routine 03/09/2024 6:18 AM CDT BASIC METABOLIC PANEL Routine 03/09/2024 6:18 AM CDT BLOOD CULTURE STAT 03/09/2024 4:59 AM CDT PROLACTIN STAT 03/08/2024 5:31 PM CDT LACTIC ACID WHOLE BLOOD STAT 03/08/2024 5:31 PM CDT VERIGENE GN PANEL Routine 03/08/2024 2:1 9 PM CDT BLOOD CULTURE STAT 03/08/2024 2:19 PM CDT LACTIC ACID WHOLE BLOOD STAT 03/08/2024 2:02 PM CDT CBC WITH PLATELETS Routine 03/08/2024 2: 02 PM CDT ERYTHROCYTE SEDIMENTATION RATE AUTO Routine 03/07/2024 10:49 AM CDT CRP INFLAMMATION Routine 03/07/2024 10:4 9 AM CDT BLOOD CULTURE STAT 03/07/2024 10:49 AM CDT BLOOD CULTURE STAT 03/06/2024 11:44 PM CDT HEMOGLOBIN Routine 03/06/2024 10:24 PM CDT PREPARE RED BLOOD CELLS (UNIT) Routine 03/06/2024 8:50 PM CDT PREPARE RED BLOOD CELLS (UNIT) Routine 03/06/2024 8:50 PM CDT LACTIC ACID WHOLE BLOOD STAT 03/06/2024 8:22 PM CDT TYPE AND SCREEN, ADULT STAT 4:49 PM CDT MAGNESIUM STAT 03/06/2024 4:49 PM CDT ABO/RH TYPE AND SCREEN STAT 4:49 PM CDT BASIC METABOLIC PANEL STAT 03/06/2024 4:49 PM CDT CBC WITH PLATELETS STAT 03/06/2024 4: 49 PM CDT ROUTINE UA WITH MICROSCOPIC REFLEX TO CULTURE STAT 03/06/2024 1:48 PM CDT BLOOD CULTURE STAT 03/05/2024 10:21 PM CDT OCCULT BLOOD STOOL STAT 03/05/2024 10 :14 PM CDT CBC WITH PLATELETS AND DIFFERENTIAL STAT 03/05/2024 9:48 PM CDT CBC WITH PLATELETS & DIFFERENTIAL STAT 03/05/2024 9:48 PM CDT MAGNESIUM STAT 03/05/2024 9:48 PM CDT LACTIC ACID WHOLE BLOOD STAT 03/05/2024 9:48 PM CDT HEPATIC FUNCTION PANEL Add-On 9:48 PM CDT ERYTHROCYTE SEDIMENTATION RATE AUTO STAT 03/05/2024 9:48 PM CDT CRP INFLAMMATION STAT 03/05/2024 9:48 PM CDT BLOOD CULTURE STAT 03/05/2024 9:48 PM CDT BASIC METABOLIC PANEL STAT 03/05/2024 9:48 PM CDT documented in this encounter Results * (ABNORMAL) CBC with platelets (03/13/2024 1:13 PM CDT) [facility] [address] WBC Count 7.1 4.0 - 11.0 10e3/uL [...] LAB - BLOOD ORDERABL ES [facility] Lab [address] Lab (1st floor, no room number) [place] [address] * (ABNORMAL) CBC with platelets and differential (03/12/2024 5:33 AM CDT) WBC Count 7.8 4.0 - 11.0 10e3/uL 03/12/2024 6:02 AM CDT [facility] RBC Count 3.12(L) 3.80 - 5.20 10e6/uL 03/12/2024 6:02 AM CDT [facility] Hemoglobin 9.3(L) 11.7 - 15.7 g/dL 03/12/2024 6:02 AM CDT [facility] Hematocrit 28.8(L) 35.0 - 47.0 % 03/12/2024 6:02 AM CDT [facility] MCV 92 78 - 100 fL 03/12/2024 6:02 AM CDT [facility] MCH 29.8 26.5 - 33.0 pg 03/12/2024 6:02 AM CDT [facility] MCHC 32.3 31.5 - 36.5 g/dL 03/12/2024 6:02 AM CDT [facility] RDW 17.2(H) 10.0 - 15.0 % 03/12/2024 6:02 AM CDT [facility] Platelet Count 238 150 - 450 10e3/uL 03/12/2024 6:02 AM CDT [facility] % Neutrophils 59 % 03/12/2024 6:02 AM CDT [facility] % Lymphocytes 27 % 03/12/2024 6:02 AM CDT [facility] % Monocytes 11 % 03/12/2024 6:02 AM CDT [facility] % Eosinophils 2 % 03/12/2024 6:02 AM CDT [facility] % Basophils 0 % 03/12/2024 6:02 AM CDT [facility] % Immature Granulocytes 1 % 03/12/2024 6:02 AM CDT [facility] NRBCs per 100 WBC 0 <1 /100 024 6:02 AM CDT [facility] Absolute Neutrophils 4.6 1.6 - 8.3 10e3/uL 03/12/2024 6:02 AM CDT [facility] Absolute Lymphocytes 2.1 0.8 - 5.3 10e3/uL 03/12/2024 6:02 AM CDT [facility] Absolute Monocytes 0.8 0.0 - 1.3 10e3/uL 03/12/2024 6:02 AM CDT [facility] Absolute Eosinophils 0.1 0.0 - 0.7 10e3/uL 03/12/2024 6:02 AM CDT [facility] Absolute Basophils 0.0 0.0 - 0.2 10e3/uL 03/12/2024 6:02 AM CDT [facility] Absolute Immature Granulocytes 0.1 <=0.4 10e3/uL 03/12/2024 6:02 AM CDT [facility] Absolute NRBCs 0.0 10e3/uL 03/12/2024 6:02 AM CDT [facility] Blood (Portacath) IVAD (Port) / Unknown 03/12/2024 5:33 AM CDT 03/12/2024 5:58 AM CDT Masood Amato MD LAB - BLOOD ORDERABL ES [facility] [address] Lab (1st floor, no room number) [place] [address], [facility] * (ABNORMAL) Basic metabolic panel (03/12/2024 5:33 AM CDT) Sodium 138 135 - 145 mmol/L 03/12/2024 6:27 AM CDT [facility] Comment:Reference intervals for this test were updated on 08/24/2023 to more accurately reflect our healthy population. There may be differences in the flagging of prior results with similar values performed with this method. Interpretation of those prior results can be made in the context of the updated reference intervals. Potassium 4.0 3.4 - 5.3 mmol/L 03/12/2024 6:27 AM CDT LABORATORY Chloride 102 98 - 107 mmol/L 03/12/2024 6:27 AM CDT LABORATORY Carbon Dioxide (CO2) 26 22 - 29 mmol/L 03/12/2024 6:27 AM CDT LABORATORY Anion Gap 10 7 - 15 mmol/L 03/12/2024 6:27 AM CDT LABORATORY Urea Nitrogen 15.1 6.0 - 20.0 mg/dL 03/12/2024 6:27 AM CDT LABORATORY Creatinine 0.71 0.51 - 0.95 mg/dL 03/12/2024 6:27 AM CDT LABORATORY GFR Estimate >90 >60 mL/min/1. 73m2 03/12/2024 6:27 AM CDT LABORATORY Calcium 8.8 8.6 - 10.0 mg/dL 03/12/2024 6:27 AM CDT LABORATORY Glucose 113(H) 70 - 99 mg/dL 03/12/2024 6:27 AM CDT LABORATORY Blood (Portacath) IVAD (Port) / Unknown 03/12/2024 5:33 AM CDT 03/12/2024 5:58 AM CDT Masood Amato MD LAB - BLOOD ORDERABL ES LABORATORY [facility] [address] Lab (1st floor, no room number) [place] [address], [facility] * CT Abdomen Pelvis w/o Contrast (03/11/2024 1:00 PM CDT) Anatomical Region Laterality Modality Abdomen/Pelvis, SUBRAD CT ESSIE DY, UMP CT ABDOMEN PELVIS, RAD CT Computed Tomography 03/11/2024 1:00 PM CDT Impressions 03/11/2024 8:35 PM CDT IMPRESSION: 1. ??No inflammatory changes seen within the abdomen or pelvis. 2. ??Prior cholecystectomy and hysterectomy. Narrative 03/11/2024 8:35 PM CDT EXAM: CT ABDOMEN PELVIS W/O CONTRAST LOCATION: [facility] DATE: 03/11/2024 INDICATION: Bacteremia, assess for [...] EXAM: CT ABDOMEN PELVIS W/O CONTRAST LOCATION: [facility] DATE: 03/11/2024 INDICATION: Bacteremia, assess for [...] Prior cholecystectomy and hysterectomy. Waleska Stevenson MD [facility] ORDERABLES * Lactic Acid STAT (03/10/2024 9:11 AM CDT) Lactic Acid 0.7 0.7 - 2.0 mmol/L 03/10/2024 9:37 AM CDT [facility] Blood BLOOD SPECIMEN / Unknown IVAD (Port) / Unknown 03/10/2024 9:11 AM CDT 03/10/2024 9:35 AM CDT Masood Amato MD LAB - BLOOD ORDERABL ES LABORATORY [facility] [address] Lab (1st floor, no room number) [place] [address] * (ABNORMAL) UA with Microscopic reflex to Culture (03/09/2024 9:14 PM CDT) Color Urine Light Yellow Colorless, Straw, Light Yellow, Yellow 03/09/2024 9:32 PM CDT LABORATORY Appearance Urine Clear Clear 03/09/20 24 9:32 PM CDT LABORATORY Glucose Urine Negative Negative mg/dL 03/09/2024 9:32 PM CDT LABORATORY Bilirubin Urine Negative Negative 9:32 PM CDT LABORATORY Ketones Urine Negative Negative mg/dL 03/09/2024 9:32 PM CDT LABORATORY Specific [place] Urine 1.012 1.003 - 1.035 03/09/2024 9:32 PM CDT LABORATORY Blood Urine Negative Negative 03/09/2024 9:32 PM CDT LABORATORY pH Urine 7.0 5.0 - 7.0 03/09/2024 9:32 PM CDT LABORATORY Protein Albumin Urine Negative Negative mg/dL 03/09/2024 9:32 PM CDT LABORATORY Urobilinogen Urine Normal Normal, 2.0 mg/dL 03/09/2024 9:32 PM CDT LABORATORY Nitrite Urine Negative Negative 03/09/2024 9:32 PM CDT [facility] Leukocyte Esterase Urine Negative Negative 03/09/2024 9:32 PM CDT LABORATORY Mucus Urine Present(A) None Seen /LPF 03/09/2024 9:32 PM CDT LABORATORY RBC Urine 1 <=2 /HPF 03/09/2024 9:32 PM CDT [facility] WBC Urine <1 <=5 /HPF 03/09/2024 9:32 PM CDT LABORATORY Squamous Epithelials Urine 1 <=1 /HPF 03/09/2024 9:32 PM CDT [facility] Urine MID-STREAM URINE SPECIMEN / Unknown Non-blood Collection / Unknown 03/09/2024 9:14 PM CDT 03/09/2024 9:18 PM CDT Narrative [facility] - 03/09/2024 9:32 PM CDT Urine Culture not indicated June Jones MD LAB - URINE ORDERABL ES LABORATORY [facility] Lab [address] [facility] Lab (1st floor, no room number) [address] [place] [address] * Lactic Acid STAT (03/09/2024 10:00 AM CDT) Lactic Acid 1.0 0.7 - 2.0 mmol/L 03/09/2024 10:38 AM CDT LABORATORY Blood BLOOD SPECIMEN / Unknown IVAD (Port) / Unknown 03/09/2024 10:00 AM CDT 03/09/2024 10:14 AM CDT Carlos Vila MD LAB - BLOOD ORDERA BLES Performing Organization Address City/[facility]/ZIP Co de Phone Number [facility] Lab [address] Lab (1st floor, no room number) [place] [id number] [place] [address] * Blood Culture Hand, Left (03/09/2024 9:37 AM CDT) Culture No Growth 03/14/2024 11:17 AM CDT [facility] Blood STRUCTURE OF LEFT HAND / Unknown Venipuncture / Unknown 03/09/2024 9:37 AM CDT 03/09/2024 9:49 AM CDT Sam Jain DO LAB - MICRO GENERAL ORDERABLES [facility] Inf. Diseases Diag. Lab [address] [place] [address], [facility] * (ABNORMAL) CBC with platelets and differential (03/09/2024 6:18 AM CDT) [facility] Signature WBC Count 24.7(H) 4.0 - 11.0 10e3/uL 03/09/2024 6:43 AM CDT [facility] RBC Count 3.05(L) 3.80 - 5.20 10e6/uL 03/09/2024 6:43 AM CDT [facility] Hemoglobin 9.0(L) 11.7 - 15.7 g/dL 03/09/2024 6:43 AM CDT [facility] Hematocrit 27.8(L) 35.0 - 47.0 % 03/09/2024 6:43 AM CDT [facility] MCV 91 78 - 100 fL 03/09/2024 6:43 AM CDT [facility] MCH 29.5 26.5 - 33.0 pg 03/09/2024 6:43 AM CDT [facility] MCHC 32.4 31.5 - 36.5 g/dL 03/09/2024 6:43 AM CDT [facility] RDW 17.0(H) 10.0 - 15.0 % 03/09/2024 6:43 AM CDT [facility] Platelet Count 223 150 - 450 10e3/uL 03/09/2024 6:43 AM CDT [facility] % Neutrophils 85 % 03/09/2024 6:43 AM CDT [facility] % Lymphocytes 11 % 03/09/2024 6:43 AM CDT [facility] % Monocytes 3 % 03/09/2024 6:43 AM CDT [facility] % Eosinophils 0 % 03/09/2024 6:43 AM CDT [facility] % Basophils 0 % 03/09/2024 6:43 AM CDT [facility] % Immature Granulocytes 1 % 03/09/2024 6:43 AM CDT [facility] NRBCs per 100 WBC 0 <1 /100 024 6:43 AM CDT [facility] Absolute Neutrophils 21.0(H) 1.6 - 8.3 10e3/uL 03/09/2024 6:43 AM CDT [facility] Absolute Lymphocytes 2.8 0.8 - 5.3 10e3/uL 03/09/2024 6:43 AM CDT [facility] Absolute Monocytes 0.8 0.0 - 1.3 10e3/uL 03/09/2024 6:43 AM CDT [facility] Absolute Eosinophils 0.0 0.0 - 0.7 10e3/uL 03/09/2024 6:43 AM CDT [facility] Absolute Basophils 0.0 0.0 - 0.2 10e3/uL 03/09/2024 6:43 AM CDT [facility] Absolute Immature Granulocytes 0.2 <=0.4 10e3/uL 03/09/2024 6:43 AM CDT [facility] Absolute NRBCs 0.0 10e3/uL 03/09/2024 6:43 AM CDT [facility] Blood BLOOD SPECIMEN / Unknown IVAD (Port) / Unknown 03/09/2024 6:18 AM CDT 03/09/2024 6:35 AM CDT Carlos Vila MD LAB - BLOOD ORDERA BLES [facility] [address] Lab (1st floor, no room number) [place] [address], [facility] * Basic metabolic panel (03/09/2024 6:18 AM CDT) Sodium 140 135 - 145 mmol/L 03/09/2024 7:00 AM CDT [facility] Comment:Reference intervals for this test were updated on 08/24/2023 to more accurately reflect our healthy population. There may be differences in the flagging of prior results with similar values performed with this method. Interpretation of those prior results can be made in the context of the updated reference intervals. Potassium 4.0 3.4 - 5.3 mmol/L 03/09/2024 7:00 AM CDT [facility] Chloride 103 98 - 107 mmol/L 03/09/2024 7:00 AM CDT [facility] Carbon Dioxide (CO2) 27 22 - 29 mmol/L 03/09/2024 7:00 AM CDT [facility] Anion Gap 10 7 - 15 mmol/L 03/09/2024 7:00 AM CDT [facility] Urea Nitrogen 7.0 6.0 - 20.0 mg/dL 03/09/2024 7:00 AM CDT [facility] Creatinine 0.54 0.51 - 0.95 mg/dL 03/09/2024 7:00 AM CDT [facility] GFR Estimate >90 >60 mL/min/1. 73m2 03/09/2024 7:00 AM CDT [facility] Calcium 8.7 8.6 - 10.0 mg/dL 03/09/2024 7:00 AM CDT [facility] Glucose 94 70 - 99 mg/dL 03/09/2024 7:00 AM CDT [facility] Blood BLOOD SPECIMEN / Unknown IVAD (Port) / Unknown 03/09/2024 6:18 AM CDT 03/09/2024 6:35 AM CDT Carlos Vila MD LAB - BLOOD ORDERA BLES [facility] Lab [address] Lab (1st floor, no room number) [place] [address], [facility] * (ABNORMAL) Blood Culture Hand, Left (03/09/2024 4:59 AM CDT) [facility] Signature Culture Positive on the 1st day of incubation(A) 03/12/2024 7:09 AM CDT [facility] Culture Klebsiella pneumoniae(AA) 03/12/2024 7:09 AM CDT [facility] Comment: 1 of 1 bottles Susceptibilities done on previous cultures Blood STRUCTURE OF LEFT HAND / Unknown Venipuncture / Unknown 03/09/2024 4:59 AM CDT 03/09/2024 5:09 AM CDT Narrative [facility] - 03/12/2024 7:09 AM CDT Only an Aerobic Blood Culture Bottle was collected, interpret results with caution. Sam Jain DO LAB - MICRO GENERAL ORDERABLES [facility] Inf. Diseases Diag. Lab [address] [place] [address], [facility] * Prolactin (03/08/2024 5:31 PM CDT) [facility] [address] Prolactin 6 5 - 23 ng/mL 03/09/2024 10:55 AM CDT [facility] Blood (Portacath) IVAD (Port) / Unknown 03/08/2024 5:31 PM CDT 03/08/2024 5:45 PM CDT Carlos Vila MD LAB - BLOOD ORDERA BLEDenia [facility] LABORATORY [facility] [place] [facility] [address] [facility], [address] [place] [address], [facility] * Lactic acid whole blood (03/08/2024 5:31 PM CDT) [facility] [address] Lactic Acid 0.8 0.7 - 2.0 mmol/L 03/08/2024 5:48 PM CDT LABORATORY Blood (Portacath) IVAD (Port) / Unknown 03/08/2024 5:31 PM CDT 03/08/2024 5:45 PM CDT Carlos Vila MD LAB - BLOOD ORDERA BLEDenia LABORATORY [facility] Lab [address] Lab (1st floor, no room number) [place] [address], [facility] * (ABNORMAL) Verigene GN Panel (03/08/2024 2:19 PM CDT) [facility] [address] Acinetobacter species Not Detected Not Detected 03/09/2024 [...] MICRO GENERA L ORDERABLES UU IDD LABORATORY [facility] Inf. Diseases Diag. Lab [address] [facility], [address] [place] [address] * (ABNORMAL) Blood Culture Hand, Left (03/08/2024 2:19 PM CDT) Culture Positive on the 1st day of incubation(A) 03/11/2024 11:59 AM CDT UU IDD LABORATORY Culture Klebsiella pneumoniae ESBL(AA) 03/11/2024 11:59 AM CDT UU IDD LABORATORY Comment:2 of 2 bottles Blood STRUCTURE OF LEFT HAND / Unknown Venipuncture / Unknown 03/08/2024 2:19 PM CDT 03/08/2024 2:29 PM CDT Narrative Organism Antibiotic Method Susceptibility Klebsiella pneumoniae ESBL Ampicillin [place] Resistant Comment:Intrinsicall y Resistant Klebsiella pneumoniae ESBL Piperacillin/Tazobactam [place] <=4 ug/mL: Susceptible Klebsiella pneumoniae ESBL Ceftazidime [place] Resistant Klebsiella pneumoniae ESBL Ceftriaxone [place] Resistant Klebsiella pneumoniae ESBL Cefepime [place] Resistant Klebsiella pneumoniae ESBL Meropenem [place] <=0.25 ug/mL: Susceptible Comment:Enterobacter ales that are susceptible to meropenem are usually susceptible to ertapenem. Klebsiella pneumoniae ESBL Gentamicin [place] >=16 ug/mL: Resistant Klebsiella pneumoniae ESBL Tobramycin [place] 2 ug/mL: Susceptible Klebsiella pneumoniae ESBL Ciprofloxacin [place] 0.5 ug/mL: Intermediate Klebsiella pneumoniae ESBL Levofloxacin [place] 1 ug/mL: Intermediate Klebsiella pneumoniae ESBL Trimethoprim/Sulfamethoxazo le [place] <=1/19 ug/mL: Susceptible Comment:ESBL (extended spect rum beta lactamase) producing organisms require contact precautions. Carlos Vila MD LAB - MICRO GENERA L ORDERABLES [facility]U IDD LABORATORY [facility] Inf. Diseases Diag. Lab [address] [facility], [address] [place] [address], [facility] * (ABNORMAL) CBC with platelets (03/08/2024 2:02 PM CDT) WBC Count 19.5(H) 4.0 - 11.0 10e3/uL 03/08/2024 2:42 PM CDT RH LABORATORY RBC Count 3.39(L) 3.80 - 5.20 10e6/uL 03/08/2024 2:42 PM CDT RH LABORATORY Hemoglobin 10.0(L) 11.7 - 15.7 g/dL 03/08/2024 2:42 PM CDT RH LABORATORY Hematocrit 30.2(L) 35.0 - 47.0 % 03/08/2024 2:42 PM CDT RH LABORATORY MCV 89 78 - 100 fL 03/08/2024 2:42 PM CDT RH LABORATORY MCH 29.5 26.5 - 33.0 pg 03/08/2024 2:42 PM CDT RH LABORATORY MCHC 33.1 31.5 - 36.5 g/dL 03/08/2024 2:42 PM CDT RH LABORATORY RDW 16.7(H) 10.0 - 15.0 % 03/08/2024 2:42 PM CDT RH LABORATORY Platelet Count 210 150 - 450 10e3/uL 03/08/2024 2:42 PM CDT RH LABORATORY Blood BLOOD SPECIMEN / Unknown IVAD (Port) / Unknown 03/08/2024 2:02 PM CDT 03/08/2024 2:15 PM CDT Carlos Vila MD LAB - BLOOD ORDERA BLES [facility] Lab [address] Lab (1st floor, no room number) [place] [id number] [place] [address] * (ABNORMAL) Lactic Acid STAT (03/08/2024 2:02 PM CDT) Lactic Acid 3.3(H) 0.7 - 2.0 mmol/L 03/08/2024 2:27 PM CDT RH LABORATORY Blood BLOOD SPECIMEN / Unknown IVAD (Port) / Unknown 03/08/2024 2:02 PM CDT 03/08/2024 2:15 PM CDT Carlos Vila MD LAB - BLOOD ORDERA BLES [facility] Lab [address] Lab (1st floor, no room number) [place], [address] * (ABNORMAL) Erythrocyte sedimentation rate auto (03/07/2024 10:49 AM CDT) Erythrocyte Sedimentation Rate 44(H) 0 - 20 mm/hr 03/07/2024 11:10 AM CDT RH LABORATORY Blood STRUCTURE OF LEFT UPPER LIMB / Unknown Venipuncture / Unknown 03/07/2024 10:49 AM CDT 03/07/2024 10:56 AM CDT Ady Thurston MD LAB - BLOOD ORDOctavio LINO [facility] Lab [address] Lab (1st floor, no room number) [place] [id number] [place] [address] * (ABNORMAL) CRP inflammation (03/07/2024 10:49 AM CDT) Pathologist [facility] CRP Inflammation 70.95(H) <5.00 mg/L 03/07/2024 11:31 AM CDT LABORATORY Blood STRUCTURE OF LEFT UPPER LIMB / Unknown Venipuncture / Unknown 03/07/2024 10:49 AM CDT 03/07/2024 10:56 AM CDT Ady Thurston MD LAB - BLOOD CIEOL LINO [facility] Lab [address] Lab (1st floor, no room number) [place] [phone] * Blood Culture Arm, Left (03/07/2024 10:49 AM CDT) Culture No Growth 03/12/2024 1:01 PM CDT UU IDD LABORATORY Blood STRUCTURE OF LEFT UPPER LIMB / Unknown Venipuncture / Unknown 03/07/2024 10:49 AM CDT 03/07/2024 10:56 AM CDT Narrative UU IDD LABORATORY - 03/12/2024 1:01 PM CDT Only an Aerobic Blood Culture Bottle was collected, interpret results with caution. Ady Thurston MD LAB - MICRO GENE RAL ORDERABLES IDD LABORATORY [facility] Inf. Diseases Diag. Lab [address] [facility], [address] [address] * Blood Culture Arm, Right (03/06/2024 11:44 PM CDT) Pathologist [facility] Culture No Growth 03/12/2024 3:17 AM CDT UU IDD LABORATORY Blood STRUCTURE OF RIGHT UPPER LIMB / Unknown Venipuncture / Unknown 03/06/2024 11:44 PM CDT 03/06/2024 11:55 PM CDT Ady Thurston MD LAB - MICRO GENE RAL ORDERABLES Performing Organization Address City/[facility]/ZIP Co de Phone Number UU IDD LABORATORY [facility] Inf. Diseases Diag. Lab [address] [facility], [address] [address] * (ABNORMAL) Hemoglobin (03/06/2024 10:24 PM CDT) Pathologist [facility] Hemoglobin 9.4(L) 11.7 - 15.7 g/dL 03/06/2024 10:34 PM CDT LABORATORY Blood BLOOD SPECIMEN / Unknown IVAD (Port) / Unknown 03/06/2024 10:24 PM CDT 03/06/2024 10:31 PM CDT Nazario Howard MD LAB - BLOOD ORD ERABLES LABORATORY [facility] Lab [address] [facility] Lab (1st floor, no room number) [place] [address] * Lactic Acid STAT (03/06/2024 8:22 PM CDT) Lactic Acid 0.9 0.7 - 2.0 mmol/L 03/06/2024 8:33 PM CDT LABORATORY Blood BLOOD SPECIMEN / Unknown IVAD (Port) / Unknown 03/06/2024 8:22 PM CDT 03/06/2024 8:31 PM CDT Carlos Vila MD LAB - BLOOD ORDERA BLES LABORATORY [facility] Lab [address] Lab (1st floor, no room number) [place] [address] * Adult Type and Screen (03/06/2024 4:49 PM CDT) ABO/RH(D) O POS 03/06/2024 6:00 AM CDT RH BLOOD BANK Antibody Screen Negative Negative 03/06/2024 6:00 AM CDT RH BLOOD BANK SPECIMEN EXPIRATION DATE [id number] 03/06/2024 6:00 AM CDT RH BLOOD BANK Blood STRUCTURE OF LEFT UPPER LIMB / Unknown Venipuncture / Unknown 03/06/2024 4:49 PM CDT 03/06/2024 5:02 PM CDT Ady Thurston MD LAB - BLOOD BANK TEST ORDER Performing Organization Address [facility]/ZIP Co de Phone Number BLOOD BANK [address] [facility] [place] [address] * Magnesium (03/06/2024 4:49 PM CDT) Magnesium 1.7 1.7 - 2.3 mg/dL 03/06/2024 5:25 PM CDT RH LABORATORY Blood STRUCTURE OF LEFT UPPER LIMB / Unknown Venipuncture / Unknown 03/06/2024 4:49 PM CDT 03/06/2024 5:02 PM CDT Ady Thurston MD LAB - BLOOD ORDOctavio LINO LABORATORY [facility] Lab [address] Lab (1st floor, no room number) [place] [address] * (ABNORMAL) CBC with platelets (03/06/2024 4:49 PM CDT) WBC Count 10.8 4.0 - 11.0 10e3/uL 03/06/2024 5:09 PM CDT RH LABORATORY RBC Count 2.59(L) 3.80 - 5.20 10e6/uL 03/06/2024 5:09 PM CDT RH LABORATORY Hemoglobin 7.6(L) 11.7 - 15.7 g/dL 03/06/2024 5:09 PM CDT RH LABORATORY Hematocrit 23.0(L) 35.0 - 47.0 % 03/06/2024 5:09 PM CDT RH LABORATORY MCV 89 78 - 100 fL 03/06/2024 5:09 PM CDT RH LABORATORY MCH 29.3 26.5 - 33.0 pg 03/06/2024 5:09 PM CDT RH LABORATORY MCHC 33.0 31.5 - 36.5 g/dL 03/06/2024 5:09 PM CDT RH LABORATORY RDW 17.2(H) 10.0 - 15.0 % 03/06/2024 5:09 PM CDT RH LABORATORY Platelet Count 317 150 - 450 10e3/uL 03/06/2024 5:09 PM CDT RH LABORATORY Blood STRUCTURE OF LEFT UPPER LIMB / Unknown Venipuncture / Unknown 03/06/2024 4:49 PM CDT 03/06/2024 5:02 PM CDT Ady Thurston MD LAB - BLOOD CIELO LINO [facility] Organization Address City/State/ZIP Co de Phone Number RH LABORATORY [facility] [address] Lab (1st floor, no room number) [place] [address], [facility] * (ABNORMAL) Basic metabolic panel (03/06/2024 4:49 PM CDT) Sodium 137 135 - 145 mmol/L 03/06/2024 5:25 PM CDT RH LABORATORY Comment:Reference intervals for this test were updated on 08/24/2023 to more accurately reflect our healthy population. There may be differences in the flagging of prior results with similar values performed with this method. Interpretation of those prior results can be made in the context of the updated reference intervals. Potassium 3.4 3.4 - 5.3 mmol/L 03/06/2024 5:25 PM CDT LABORATORY Chloride 101 98 - 107 mmol/L 03/06/2024 5:25 PM CDT LABORATORY Carbon Dioxide (CO2) 21(L) 22 - 29 mmol/L 03/06/2024 5:25 PM CDT LABORATORY Anion Gap 15 7 - 15 mmol/L 03/06/2024 5:25 PM CDT LABORATORY Urea Nitrogen 3.8(L) 6.0 - 20.0 mg/dL 03/06/2024 5:25 PM CDT LABORATORY Creatinine 0.73 0.51 - 0.95 mg/dL 03/06/2024 5:25 PM CDT LABORATORY GFR Estimate >90 >60 mL/min/1. 73m2 03/06/2024 5:25 PM CDT LABORATORY Calcium 8.8 8.6 - 10.0 mg/dL 03/06/2024 5:25 PM CDT LABORATORY Glucose 128(H) 70 - 99 mg/dL 03/06/2024 5:25 PM CDT LABORATORY Blood STRUCTURE OF LEFT UPPER LIMB / Unknown Venipuncture / Unknown 03/06/2024 4:49 PM CDT 03/06/2024 5:02 PM CDT Ady Thurston MD LAB - BLOOD CIELO LINO LABORATORY [facility] Lab [address] [facility] Lab (1st floor, no room number) [place] [address], [facility] * (ABNORMAL) UA with Microscopic reflex to Culture (03/06/2024 1:48 PM CDT) Color Urine Yellow Colorless, Straw, Light Yellow, Yellow 03/06/2024 2:02 PM CDT LABORATORY Appearance Urine Slightly Cloudy(A) Clear 03/06/2024 2:02 PM CDT LABORATORY Glucose Urine Negative Negative mg/dL 03/06/2024 2:02 PM CDT LABORATORY Bilirubin Urine Negative Negative 2:02 PM CDT LABORATORY Ketones Urine Negative Negative mg/dL 03/06/2024 2:02 PM CDT LABORATORY Specific [place] Urine 1.018 1.003 - 1.035 03/06/2024 2:02 PM CDT RH LABORATORY Blood Urine Negative Negative 03/06/2024 2:02 PM CDT RH LABORATORY pH Urine 6.0 5.0 - 7.0 03/06/2024 2:02 PM CDT RH LABORATORY Protein Albumin Urine 10(A) Negative mg/dL 03/06/2024 2:02 PM CDT LABORATORY Urobilinogen Urine Normal Normal, 2.0 mg/dL 03/06/2024 2:02 PM CDT LABORATORY Nitrite Urine Negative Negative 03/06/2024 2:02 PM CDT LABORATORY Leukocyte Esterase Urine Negative Negative 03/06/2024 2:02 PM CDT LABORATORY Mucus Urine Present(A) None Seen /LPF 03/06/2024 2:02 PM CDT RH LABORATORY RBC Urine 5(H) <=2 /HPF 03/06/2024 2:02 PM CDT LABORATORY WBC Urine 3 <=5 /HPF 03/06/2024 2:02 PM CDT LABORATORY Squamous Epithelials Urine 13(H) <=1 /HPF 03/06/2024 2:02 PM CDT LABORATORY Urine URINE SPECIMEN OBTAINED BY CLEAN CATCH PROCEDURE / Unknown Non-blood Collection / Unknown 03/06/2024 1:48 PM CDT 03/06/2024 1:53 PM CDT Narrative LABORATORY - 03/06/2024 2:02 PM CDT Urine Culture not indicated Ady Thurston MD LAB - URINE CIELO LINO LABORATORY [facility] Lab [address] Lab (1st floor, no room number) [place] [address], [facility] * Blood Culture Arm, Right (03/05/2024 10:21 PM CDT) Culture No Growth 03/11/2024 2:02 AM CDT UU IDD LABORATORY Blood STRUCTURE OF RIGHT UPPER LIMB / Unknown Venipuncture / Unknown 03/05/2024 10:21 PM CDT 03/05/2024 10:41 PM CDT Verito Martínez PA-C LAB - MICRO GENERAL ORDERABLES UU IDD LABORATORY [facility] Inf. Diseases Diag. Lab [address] [facility], [address] [place] [address], [facility] * Stool: occult blood (03/05/2024 10:14 PM CDT) Pathologist [facility] Occult Blood Negative Negative [place] 03/05/2024 10:26 PM CDT LABORATORY Stool RECTAL CONTENTS / Unknown Non-blood Collection / Unknown 03/05/2024 10:14 PM CDT 03/05/2024 10:21 PM CDT Verito Martínez PA-C LAB - STOOLS ORDERAB LES LABORATORY [facility] Lab [address] Lab (1st floor, no room number) [place] [address] * (ABNORMAL) Hepatic panel (03/05/2024 9:48 PM CDT) Pathologist [facility] Protein Total 7.3 6.4 - 8.3 g/dL [...] Vila MD LAB - BLOOD ORDERA BLES Performing Organization Address City/[facility]/ZIP Co de Phone Number [facility] Lab [address] Lab (1st floor, no room number) [address] * Magnesium (03/05/2024 9:48 PM CDT) Pathologist [facility] Magnesium 1.8 1.7 - 2.3 mg/dL 03/05/2024 11:03 PM CDT LABORATORY Blood STRUCTURE OF RIGHT UPPER LIMB / Unknown Venipuncture / Unknown 03/05/2024 9:48 PM CDT 03/05/2024 9:52 PM CDT Verito Martínez PA-C LAB - BLOOD ORDERABL ES Performing Organization Address City/[facility]/ZIP Co de Phone Number [facility] Lab [address] Lab (1st floor, no room number) [address] * (ABNORMAL) CBC with platelets and differential (03/05/2024 9:48 PM CDT) WBC Count 12.9(H) 4.0 - 11.0 10e3/uL 03/05/2024 9:55 PM CDT RH LABORATORY RBC Count 3.22(L) 3.80 - 5.20 10e6/uL 03/05/2024 9:55 PM CDT RH LABORATORY Hemoglobin 9.5(L) 11.7 - 15.7 g/dL 03/05/2024 9:55 PM CDT RH LABORATORY Hematocrit 28.9(L) 35.0 - 47.0 % 03/05/2024 9:55 PM CDT RH LABORATORY MCV 90 78 - 100 fL 03/05/2024 9:55 PM CDT RH LABORATORY MCH 29.5 26.5 - 33.0 pg 03/05/2024 9:55 PM CDT RH LABORATORY MCHC 32.9 31.5 - 36.5 g/dL 03/05/2024 9:55 PM CDT RH LABORATORY RDW 17.2(H) 10.0 - 15.0 % 03/05/2024 9:55 PM CDT RH LABORATORY Platelet Count 239 150 - 450 10e3/uL 03/05/2024 9:55 PM CDT RH LABORATORY % Neutrophils 72 % 03/05/2024 9:55 PM CDT RH LABORATORY % Lymphocytes 18 % 03/05/2024 9:55 PM CDT RH LABORATORY % Monocytes 8 % 03/05/2024 9:55 PM CDT RH LABORATORY % Eosinophils 1 % 03/05/2024 9:55 PM CDT RH LABORATORY % Basophils 0 % 03/05/2024 9:55 PM CDT RH LABORATORY % Immature Granulocytes 1 % 03/05/2024 9:55 PM CDT RH LABORATORY NRBCs per 100 WBC 0 <1 /100 024 9:55 PM CDT RH LABORATORY Absolute Neutrophils 9.3(H) 1.6 - 8.3 10e3/uL 03/05/2024 9:55 PM CDT RH LABORATORY Absolute Lymphocytes 2.3 0.8 - 5.3 10e3/uL 03/05/2024 9:55 PM CDT RH LABORATORY Absolute Monocytes 1.1 0.0 - 1.3 10e3/uL 03/05/2024 9:55 PM CDT RH LABORATORY Absolute Eosinophils 0.1 0.0 - 0.7 10e3/uL 03/05/2024 9:55 PM CDT RH LABORATORY Absolute Basophils 0.0 0.0 - 0.2 10e3/uL 03/05/2024 9:55 PM CDT RH LABORATORY Absolute Immature Granulocytes 0.1 <=0.4 10e3/uL 03/05/2024 9:55 PM CDT RH LABORATORY Absolute NRBCs 0.0 10e3/uL 03/05/2024 9:55 PM CDT RH LABORATORY Blood STRUCTURE OF RIGHT UPPER LIMB / Unknown Venipuncture / Unknown 03/05/2024 9:48 PM CDT 03/05/2024 9:52 PM CDT Verito Martínez PA-C LAB - BLOOD ORDERABL ES [facility] [address] [facility], no room number[facility] [address] * Lactic acid whole blood (03/05/2024 9:48 PM CDT) Lactic Acid 1.3 0.7 - 2.0 mmol/L 03/05/2024 9:54 PM CDT RH LABORATORY Blood STRUCTURE OF RIGHT UPPER LIMB / Unknown Venipuncture / Unknown 03/05/2024 9:48 PM CDT 03/05/2024 9:52 PM CDT Verito Martínez PA-C LAB - BLOOD ORDERABL ES [facility] Lab [address] Lab (1st floor, no room number) [address] * Blood Culture Arm, Right (03/05/2024 9:48 PM CDT) Culture No Growth 03/11/2024 2:02 AM CDT UU IDD LABORATORY Blood STRUCTURE OF RIGHT UPPER LIMB / Unknown Venipuncture / Unknown 03/05/2024 9:48 PM CDT 03/05/2024 9:52 PM CDT Verito Martínez PA-C LAB - MICRO GENERAL ORDERABLES UU IDD LABORATORY [facility] Inf. Diseases Diag. Lab [address] [facility], [address] [place] [address] * (ABNORMAL) Erythrocyte sedimentation rate auto (03/05/2024 9:48 PM CDT) Erythrocyte Sedimentation Rate 37(H) 0 - 20 mm/hr 03/05/2024 11:16 PM CDT RH LABORATORY Blood STRUCTURE OF RIGHT UPPER LIMB / Unknown Venipuncture / Unknown 03/05/2024 9:48 PM CDT 03/05/2024 9:52 PM CDT Verito Martínez PA-C LAB - BLOOD ORDERABL ES Performing Organization Address City/[facility]/ZIP Co de Phone Number LABORATORY [facility] [address] Lab (1st floor, no room number) [place] [address] * (ABNORMAL) CRP inflammation (03/05/2024 9:48 PM CDT) CRP Inflammation 142.72(H) <5.00 mg/L 03/05/2024 10:20 PM CDT LABORATORY Blood STRUCTURE OF RIGHT UPPER LIMB / Unknown Venipuncture / Unknown 03/05/2024 9:48 PM CDT 03/05/2024 9:52 PM CDT Verito Martínez PA-C LAB - BLOOD ORDERABL ES LABORATORY [facility] Lab [address] Lab (1st floor, no room number) [place] [address] * (ABNORMAL) Basic metabolic panel (03/05/2024 9:48 PM CDT) Sodium 137 135 - 145 mmol/L 03/05/2024 10:20 PM CDT RH LABORATORY Comment:Reference intervals for this test were updated on 08/24/2023 to more accurately reflect our healthy population. There may be differences in the flagging of prior results with similar values performed with this method. Interpretation of those prior results can be made in the context of the updated reference intervals. Potassium 3.2(L) 3.4 - 5.3 mmol/L 03/05/2024 10:20 PM CDT LABORATORY Chloride 100 98 - 107 mmol/L 03/05/2024 10:20 PM CDT RH LABORATORY Carbon Dioxide (CO2) 23 22 - 29 mmol/L 03/05/2024 10:20 PM CDT RH LABORATORY Anion Gap 14 7 - 15 mmol/L 03/05/2024 10:20 PM CDT RH LABORATORY Urea Nitrogen 4.3(L) 6.0 - 20.0 mg/dL 03/05/2024 10:20 PM CDT LABORATORY Creatinine 0.63 0.51 - 0.95 mg/dL 03/05/2024 10:20 PM CDT LABORATORY GFR Estimate >90 >60 mL/min/1. 73m2 03/05/2024 10:20 PM CDT LABORATORY Calcium 8.3(L) 8.6 - 10.0 mg/dL 03/05/2024 10:20 PM CDT LABORATORY Glucose 106(H) 70 - 99 mg/dL 03/05/2024 10:20 PM CDT LABORATORY Blood STRUCTURE OF RIGHT UPPER LIMB / Unknown Venipuncture / Unknown 03/05/2024 9:48 PM CDT 03/05/2024 9:52 PM CDT Verito Martínez PA-C LAB - BLOOD ORDERABL ES LABORATORY [facility] Lab [address] Lab (1st floor, no room number) [place] [address], [facility] documented in this encounter Visit Diagnoses Diagnosis Hypokalemia- Primary Hypopotassemia Positive blood culture Bacteremia Anemia Anemia, unspecified Back pain Backache, unspecified Hypokalemia Hypopotassemia Chronic bilateral low back pain without sciatica Osteomyelitis, unspecified site, unspecified type (H) Multiple subsegmental pulmonary emboli without acute cor pulmonale (H) Acute low back pain with radicular symptoms, duration less than 6 weeks Discitis, unspecified spinal region Back pain Backache, unspecified Anemia Anemia, unspecified Positive blood culture Bacteremia documented in this encounter Admitting Diagnoses Diagnosis Hypokalemia Hypopotassemia documented in this encounter Administered Medications Inactive Administered Medications - up to 3 most recent administrations Medication Order MAR Action Action Date Dose Rate Site acetaminophen (TYLENOL) Suppository 650 mg 650 mg, Rectal, EVERY 4 HOURS PRN, mild pain, fever, Starting on Wed03/08/24 at 1308, Maximum acetaminophen dose from all sources = 75 mg/kg/day not to exceed 4 grams/day. $Given 03/08/2024 1:28 PM CDT 650 mg acetaminophen (TYLENOL) tablet 650 mg 650 mg, Oral, EVERY 4 HOURS PRN, mild pain, fever, Starting on Wed03/08/24 at 1308, Maximum acetaminophen dose from all sources = 75 mg/kg/day not to exceed 4 grams/day. $Given 03/12/2024 3:03 AM CDT 650 mg $Given 03/11/2024 8:36 PM CDT 650 mg $Given 03/10/2024 9:32 PM CDT 650 mg acetaminophen (TYLENOL) tablet 975 mg 975 mg, Oral, 4 TIMES DAILY, First dose on Wed03/07/24 at 0800, Maximum acetaminophen dose from all sources = 75 mg/kg/day not to exceed 4 grams/day. $Given 03/08/2024 8:05 AM CDT 975 mg $Given 03/07/2024 7:10 PM CDT 975 mg $Given 03/07/2024 3:57 PM CDT 975 mg apixaban ANTICOAGULANT (ELIQUIS) tablet 5 mg 5 mg, Oral, ONCE, On Wed03/05/24 at 2135, For 1 dose, Indications: Home med, hx of PE $Given 03/05/2024 9:47 PM CDT 5 mg apixaban ANTICOAGULANT (ELIQUIS) tablet 5 mg 5 mg, Oral, 2 TIMES DAILY, First dose on Wed03/06/24 at 0800, Indications: DVT-PE Treatment, On hold since Wed03/12/2024 at 1539 until manually unheld $Given 03/12/2024 9:11 AM CDT 5 mg $Given 03/11/2024 8:27 PM CDT 5 mg $Given 03/11/2024 8:26 AM CDT 5 mg ceFAZolin (ANCEF) 2 g in 100 mL D5W intermittent infusion STAT, 2 g, Intravenous, ONCE, On Wed03/05/24 at 2300, For 1 dose, Indications: Bacteremia $New Bag 03/05/2024 11:19 PM CDT 2 g 200 mL /hr ceFAZolin (ANCEF) 2 g in 100 mL D5W intermittent infusion Routine, 2 g, Intravenous, EVERY 8 HOURS, First dose on Wed03/06/24 at 0600, Indications: Bacteremia, Bone and/or Joint Infection $New Bag 03/07/2024 5:58 AM CDT 2 g 200 mL/h r $New Bag 03/06/2024 10:36 PM CDT 2 g 200 mL/hr $New Bag 03/06/2024 3:00 PM CDT 2 g 200 mL/hr childrens multivitamin with iron ([employer] COMPLETE) chewable tablet 1 tablet 1 tablet, Oral, DAILY, First dose on Wed03/07/24 at 1200 $Given 03/13/2024 9:13 AM CDT 1 tablet $Given 03/12/2024 9:11 AM CDT 1 tablet $Given 03/11/2024 8:27 AM CDT 1 tablet diazepam (VALIUM) injection 2.5 mg 2.5 mg, Intravenous, Administer over 1-4 Minutes, EVERY 4 HOURS PRN, nausea, Starting on Wed03/08/24 at 1304, Vesicant. This drug may cause significant respiratory depression. Monitor respiratory status and vital signs carefully for 1 hour after each dose. diphenhydrAMINE (BENADRYL) capsule 50 mg 50 mg, Oral, EVERY 6 HOURS PRN, itching, Starting on Wed03/10/24 at 1629 diphenhydrAMINE (BENADRYL) injection 25 mg 25 mg, Intravenous, DAILY PRN, other, daily as needed wtih venofer infusion, Starting on Wed03/08/24 at 1118, Protect from light. $Given 03/10/2024 6:10 AM CDT 25 mg $Given 03/09/2024 1:46 PM CDT 25 mg $Given 03/08/2024 11:47 AM CDT 25 mg diphenhydrAMINE (BENADRYL) injection 25 mg 25 mg, Intravenous, EVERY 6 HOURS PRN, itching, Starting on Wed03/10/24 at 1629, Protect from light. $Given 03/13/2024 2:39 PM CDT 25 mg $Given 03/12/2024 4:39 PM CDT 25 mg $Given 03/11/2024 11:38 PM CDT 25 mg diphenhydrAMINE (BENADRYL) injection 50 mg 50 mg, Intravenous, ONCE PRN, other, hives, itching, rash, flushing, swollen lips/tongue, or respiratory distress associated with IV iron hypersensitivity., Starting on Wed03/07/24 at 1133, For 1 dose, Can be given with famotidine. Discontinue when parenteral iron therapy complete. Protect from light. $Given 03/07/2024 1:55 PM CDT 50 mg diphenhydrAMINE (BENADRYL) injection 50 mg 50 mg, Intravenous, ONCE, On Wed03/08/24 at 1300, For 1 dose, Protect from light. $Given 03/08/2024 12:41 PM CDT 50 mg diphenhydrAMINE (BENADRYL) injection 50 mg 50 mg, Intravenous, ONCE, On Wed03/10/24 at 1700, For 1 dose, Protect from light. $Given 03/10/2024 4:41 PM CDT 50 mg EPINEPHrine (ADRENALIN) kit 0.3 mg 0.3 mg, Intramuscular, EVERY 3 MIN PRN, hypotension or airway obstruction associated with IV iron hypersensitivity, Starting on Wed03/07/24 at 1133, For 2 doses, Up to a maximum of 2 doses. Administer in the anterior or lateral thigh. Discontinue when IV iron therapy complete. See kit labeling for dosing instructions. Not for direct undiluted intravenous injection (1mg/mL = 1:1000). Protect from light. ertapenem (INVanz) 1 g vial to attach to NS 100 mL bag Routine, 1 g, Intravenous, EVERY 24 HOURS, First dose on Wed03/09/24 at 1400, Infuse over 30 minutes., Indications: Bacteremia, On hold since Wed03/10/2024 at 1630 until manually unheld $New Bag 03/10/2024 2:59 PM CDT 1 g $New Bag 03/09/2024 1:55 PM CDT 1 g ertapenem (INVanz) 1 g vial to attach to NS 100 mL bag Routine, 1 g, Intravenous, EVERY 24 HOURS, First dose on Wed03/11/24 at 1100, Infuse over 30 minutes., Indications: Bacteremia $New Bag 03/13/2024 11:00 AM CDT 1 g $New Bag 03/12/2024 11:34 AM CDT 1 g $New Bag 03/11/2024 11:30 AM CDT 1 g famotidine (PEPCID) injection 40 mg 40 mg, Intravenous, Administer over 2 Minutes, EVERY 12 HOURS, First dose on Wed03/10/24 at 1700, For ordered IV doses 1-20 mg, give IV Push diluted with 5-10 mL NS over a minimum of 2 minutes. $Given 03/13/2024 5:36 AM CDT 40 mg $Given 03/12/2024 6:01 PM CDT 40 mg $Given 03/12/2024 5:24 AM CDT 40 mg folic acid (FOLVITE) tablet 1 mg 1 mg, Oral, DAILY, First dose on Wed03/06/24 at 0800 $Given 03/13/2024 9:14 AM CDT 1 mg $Given 03/12/2024 9:11 AM CDT 1 mg $Given 03/11/2024 8:26 AM CDT 1 mg gabapentin (NEURONTIN) capsule 800 mg 800 mg, Oral, 3 TIMES DAILY, First dose on Wed03/06/24 at 0100 $Given 03/13/2024 2:42 PM CDT 800 mg $Given 03/13/2024 9:14 AM CDT 800 mg $Given 03/12/2024 7:44 PM CDT 800 mg heparin 100 unit/mL injection 5-10 mL 5-10 mL, Intracatheter, EVERY 28 DAYS, First dose on Wed03/05/24 at 2130, To de-access each port in dual implanted port. Flush with 10 mL NS sodium chloride 0.9% flush followed by 5 mL heparin (100 units/mL) at discharge and at least every 28 days. MAX: 5 mL per each port lumen $Given 03/06/2024 12:04 AM CDT 5 mLs heparin 100 unit/mL injection 5-10 mL 5-10 mL, Intracatheter, EVERY 28 DAYS, First dose on Wed03/08/24 at 0830, To de-access each port in dual implanted port. Flush with 10 mL NS sodium chloride 0.9% flush followed by 5 mL heparin (100 units/mL) at discharge and at least every 28 days. MAX: 5 mL per each port lumen heparin 25,000 units in 0.45% NaCl 250 mL ANTICOAGULANT infusion 0-5,000 Units/hr (0-50 mL/hr), Intravenous, CONTINUOUS, Starting on Wed03/13/24 at 1230, --Nurse to use Heparin Infusion ADULT Dose Adjustments by RN order set after EVERY PTT result to place further orders (for bolus if needed, infusion adjustment if needed, and ordering next lab)- Starting infusion Rate = 1800 units/hr (Ordered: 03/13/2024) High Intensity Heparin Treatment- PTT monitoring WITH Boluses. GOAL: PTT = 60-99 seconds Beginning with the PTT collected 6 hours after starting heparin, adjust heparin using Heparin Infusion Dose Adjustment order set. IF HEPARIN INFUSION HELD FOR PROCEDURE: Restart heparin infusion at previous rate (no bolus needed). Nurse to place a one-time PTT lab order timed for 6 hours after heparin infusion was restarted., Heparin Therapy Type: High Intensity Heparin Infusion - No Initial Bolus (aPTT 60-99) heparin lock flush 10 UNIT/ML injection 5-10 mL 5-10 mL, Intracatheter, EVERY 1 HOUR PRN, post meds or blood draw, other, to lock each port in dual implanted port, Starting on Wed03/08/24 at 0826, Flush each port lumen with the sodium chloride 0.9% flush followed by the heparin flush. MAX dose: 5 mL of heparin for each lumen $Given 03/13/2024 5:35 AM CDT 5 mLs $Given 03/12/2024 9:12 PM CDT 5 mLs $Given 03/12/2024 6:07 PM CDT 5 mLs heparin lock flush 10 UNIT/ML injection 5-10 mL 5-10 mL, Intracatheter, EVERY 24 HOURS, First dose on Wed03/08/24 at 0830, To lock each dormant port in dual implanted port. MAX: 5 mL of heparin for each lumen Check PRN heparin flush order to see when the last dose of the PRN heparin was given before administering this heparin dose. Flush with sodium chloride 0.9% followed by the heparin flush. $Given 03/13/2024 12:00 PM CDT 5 mLs $Given 03/12/2024 9:10 AM CDT 5 mLs $Given 03/11/2024 8:25 AM CDT 5 mLs HYDROmorphone (DILAUDID) tablet 2 mg 2 mg, Oral, ONCE, On Wed03/05/24 at 2135, For 1 dose $Given 03/05/2024 9:47 PM CDT 2 mg HYDROmorphone (DILAUDID) tablet 4 mg 4 mg, Oral, EVERY 3 HOURS PRN, severe pain, IF pain not managed with non-pharmacological and non-opioid interventions, Starting on Wed03/06/24 at 0055, May use concomitant with non-opioid analgesics. $Given 03/13/2024 3:50 PM CDT 4 mg $Given 03/13/2024 12:30 PM CDT 4 mg $Given 03/13/2024 9:25 AM CDT 4 mg HYDROmorphone (DILAUDID) tablet 4 mg 4 mg, Oral, ONCE, On Wed03/09/24 at 0630, For 1 dose $Given 03/09/2024 6:08 AM CDT 4 mg HYDROmorphone (PF) (DILAUDID) injection 0.5 mg 0.5 mg, Intravenous, ONCE, On Wed03/08/24 at 0830, For 1 dose $Given 03/08/2024 8:29 AM CDT 0.5 mg iron sucrose (VENOFER) 200 mg in sodium chloride 0.9 % 120 mL intermittent infusion 200 mg, Intravenous, Administer over 60 Minutes, at 120 mL/hr, EVERY 24 HOURS, First dose on Wed03/07/24 at 1200, For 5 doses, Do NOT refrigerate. $New Bag 03/08/2024 11:51 AM CDT 200 mg 120 mL/hr $New Bag 03/07/2024 1:53 PM CDT 200 mg 120 mL/hr lactated ringers infusion at 125 mL/hr, Intravenous, CONTINUOUS, Starting on Wed03/08/24 at 1330, Until Wed03/09/24 at 1354 $New Bag 03/09/2024 6:24 AM CDT 125 mL/hr $New Bag 03/08/2024 11:05 PM CDT 125 mL/hr $New Bag 03/08/2024 2:02 PM CDT 125 mL/hr lactulose (CHRONULAC) solution 10 g 10 g, Oral, 2 TIMES DAILY PRN, constipation, Starting on Wed03/09/24 at 1353 $Given 03/09/2024 3:50 PM CDT 10 g Lidocaine (LIDOCARE) 4 % Patch 1 patch 1 patch, Transdermal, EVERY 24 HOURS 0800, Administer over 12 Hours, First dose on Wed03/07/24 at 0630, Apply patch(s) to area of back pain. To prevent lidocaine toxicity, patient should be [...] for 96 hours post injection. $Patch/Med Applied 03/13/2024 9:14 AM CDT 1 patch Left Chest $Patch/Med Applied 03/12/2024 9:11 AM CDT 1 patch Other (see comments) $Patch/Med Applied 03/11/2024 8:26 AM CDT 1 patch Other (see comments) LORazepam (ATIVAN) injection 0.5 mg 0.5 mg, Intravenous, EVERY 4 HOURS PRN, anxiety, nausea, vomiting, Starting on Wed03/06/24 at 0055, if cannot take her oral ativan dose IV Route: Dilute with equal volume NS prior to use. This drug may cause significant respiratory depression. Monitor respiratory status and vital signs carefully for 1 hour after each dose. $Given 03/12/2024 7:44 PM CDT 0.5 mg $Given 03/11/2024 11:30 AM CDT 0.5 mg $Given 03/09/2024 5:24 PM CDT 0.5 mg LORazepam (ATIVAN) injection 0.5 mg 0.5 mg, Intravenous, ONCE, On Wed03/08/24 at 1300, For 1 dose, IV Route: Dilute with equal volume NS prior to use. This drug may cause significant respiratory depression. Monitor respiratory status and vital signs carefully for 1 hour after each dose. $Given 03/08/2024 12:37 PM CDT 0.5 mg LORazepam (ATIVAN) tablet 1 mg 1 mg, Oral, EVERY 4 HOURS PRN, anxiety, Starting on 03/06/24 at 0055 $Given 03/07/2024 6:25 AM CDT 1 mg meropenem (MERREM) 2 g in sodium chloride 0.9 % 100 mL intermittent infusion Routine, 2 g, Intravenous, EVERY 8 HOURS, First dose on Wed03/09/24 at 0430, Indications: Bacteremia $New Bag 03/09/2024 5:45 AM CDT 2 g 200 mL/hr methocarbamol (ROBAXIN) tablet 500 mg 500 mg, Oral, 4 TIMES DAILY, First dose on Wed03/08/24 at 0830 $Given 03/13/2024 9:14 AM CDT 500 mg $Given 03/12/2024 7:45 PM CDT 500 mg $Given 03/09/2024 4:43 PM CDT 500 mg methylPREDNISolone (MEDROL) tablet 4 mg 4 mg, Oral, EVERY MORNING BEFORE BREAKFAST, First dose on Wed03/09/24 at 0730, For 5 doses, Give before breakfast on days 2-6 of MEDROL DOSEPAK. $Given 03/13/2024 9:14 AM CDT 4 mg $Given 03/12/2024 9:11 AM CDT 4 mg $Given 03/11/2024 8:26 AM CDT 4 mg methylPREDNISolone (MEDROL) tablet 4 mg 4 mg, Oral, DAILY WITH LUNCH, First dose on Wed03/09/24 at 1200, For 3 doses, Give after lunch on days 2-4 of MEDROL DOSEPAK. $Given 03/11/2024 11:31 AM CDT 4 mg $Given 03/10/2024 11:47 AM CDT 4 mg $Given 03/09/2024 12:05 PM CDT 4 mg methylPREDNISolone (MEDROL) tablet 4 mg 4 mg, Oral, DAILY WITH SUPPER, First dose on Wed03/09/24 at 1700, For 2 doses, Give after supper on days 2 and 3 of MEDROL DOSEPAK. $Given 03/10/2024 4:47 PM CDT 4 mg methylPREDNISolone (MEDROL) tablet 4 mg 4 mg, Oral, AT BEDTIME, First dose on Wed03/10/24 at 2200, For 3 doses, Give at bedtime on days 3-5 of MEDROL DOSEPAK. $Given 03/12/2024 9:12 PM CDT 4 mg $Given 03/11/2024 9:35 PM CDT 4 mg $Given 03/10/2024 9:32 PM CDT 4 mg methylPREDNISolone (MEDROL) tablet 8 mg 8 mg, Oral, ONCE, On Wed03/08/24 at 0830, For 1 dose, Day 1 of MEDROL DOSEPAK. Nurse to schedule this dose for before breakfast on Day 1 (or for later during the day if breakfast time has already passed) $Given 03/08/2024 8:49 AM CDT 8 mg methylPREDNISolone (MEDROL) tablet 8 mg 8 mg, Oral, AT BEDTIME, First dose on Wed03/08/24 at 2200, For 2 doses, Give at bedtime on Day 1 and 2 of MEDROL DOSEPAK. $Given 03/09/2024 10:05 PM CDT 8 mg $Given 03/08/2024 9:50 PM CDT 8 mg methylPREDNISolone sodium succinate (solu-MEDROL) injection 125 mg 125 mg, Intravenous, ONCE PRN, respiratory distress associated with hypersensitivity reaction to iron., Starting on Wed03/07/24 at 1133, For 1 dose, Discontinue when parenteral iron therapy complete. $Given 03/08/2024 12:32 PM CDT 125 mg naloxone (NARCAN) injection 0.2 mg 0.2 mg, Intravenous, EVERY 2 MIN PRN, opioid reversal, Starting on Wed03/06/24 at 1711, Administer intravenous route when available and notify [...] parameters have not improved after 4 naloxone doses. naloxone (NARCAN) injection 0.2 mg 0.2 mg, Intramuscular, EVERY 2 MIN PRN, opioid reversal, Starting on Wed03/06/24 at 1711, Administer intramuscular if an intravenous route is [...] parameters have not improved after 4 naloxone doses. naloxone (NARCAN) injection 0.4 mg 0.4 mg, Intravenous, EVERY 2 MIN PRN, opioid reversal, Starting on Wed03/06/24 at 1711, Administer intravenous route when available and notify [...] parameters have not improved after 4 naloxone doses. naloxone (NARCAN) injection 0.4 mg 0.4 mg, Intramuscular, EVERY 2 MIN PRN, opioid reversal, Starting on Wed03/06/24 at 1711, Administer intramuscular if an intravenous route is [...] parameters have not improved after 4 naloxone doses. pantoprazole (PROTONIX) IV push injection 40 mg 40 mg, Intravenous, DAILY, First dose on Wed03/08/24 at 1330, Irritant. $Given 03/13/2024 9:13 AM CDT 40 mg $Given 03/12/2024 9:10 AM CDT 40 mg $Given 03/11/2024 8:26 AM CDT 40 mg potassium chloride (KLOR-CON) Packet 40 mEq 40 mEq, Oral, ONCE, On Wed03/05/24 at 2245, For 1 dose, Dissolve packet contents in 4-8 ounces of cold water or juice. $Given 03/05/2024 11:00 PM CDT 40 mEq potassium chloride 20 mEq in 50 mL intermittent infusion 20 mEq, Intravenous, EVERY HOUR, First dose on Wed03/06/24 at 0100, For 2 doses, Infuse over 1 hour. Vesicant. INFUSE THROUGH CENTRAL LINE. Do not refrigerate. $New Bag 03/06/2024 2:36 AM CDT 20 mEq $New Bag 03/06/2024 1:37 AM CDT 20 mEq scopolamine (TRANSDERM) 72 hr patch 1 patch 1 patch, Transdermal, EVERY 72 HOURS, Administer over 72 Hours, First dose on Wed03/08/24 at 1330, Apply patch to skin, behind ear. Remove every 72 hours. DO NOT CUT PATCH. If dose is for a half or quarter patch, RN to remove only half or quarter of the backing. Each 1.5 mg patch delivers 1 mg of scopolamine. Reminder: Remove previous patch before applying new patch. $Patch/Med Applied 03/11/2024 12:39 PM CDT 1 patch Behind Right Ear $Patch/Med Applied 03/08/2024 2:59 PM CDT 1 patch Behind Left Ear scopolamine (TRANSDERM-SCOP) Patch in Place First dose on Wed03/08/24 at 1330, Chart every shift, confirming that patch is still in place on patient (no barcode scan needed). See patch order for dose information. senna-docusate (SENOKOT-S/PERICOLACE) 8.6-50 MG per tablet 1 tablet 1 tablet, Oral, 2 TIMES DAILY PRN, constipation, Starting on Wed03/06/24 at 0055, If no bowel movement in 24 hours, increase to 2 tablets by mouth. IF more than 1 constipation PRN medication is ordered, administer step-cheatham as indicated, moving to the next step ONLY if prior step ineffective. Step 1: senna-docusate (SENOKOT-S; PERICOLACE) OR bisacodyl (DULCOLAX) EC tablet Step 2: polyethylene glycol (MIRALAX/GLYCOLAX) Step 3: bisacodyl (DULCOLAX) suppository Step 4: enema Hold for loose stools. senna-docusate (SENOKOT-S/PERICOLACE) 8.6-50 MG per tablet 2 tablet 2 tablet, Oral, 2 TIMES DAILY PRN, constipation, Starting on Wed03/06/24 at 0055, IF more than 1 constipation PRN medication is ordered, administer step-cheatham as indicated, moving to the next step ONLY if prior step ineffective. Step 1: senna-docusate (SENOKOT-S; PERICOLACE) OR bisacodyl (DULCOLAX) EC tablet Step 2: polyethylene glycol (MIRALAX/GLYCOLAX) Step 3: bisacodyl (DULCOLAX) suppository Step 4: enema Hold for loose stools. sodium chloride (PF) 0.9% PF flush 10-20 mL 10-20 mL, Intracatheter, EVERY 1 HOUR PRN, other, to de-access port when not in use, Starting on Wed03/05/24 at 2129, Use sodium chloride 0.9% at least daily to de-access each port and lock dormant implanted port while not in use. Flush each port access with 10 mL sodium chloride 0.9% MAX: 10 mL per each port lumen $Given 03/06/2024 12:02 AM CDT 10 mLs sodium chloride (PF) 0.9% PF flush 10-20 mL 10-20 mL, Intracatheter, EVERY 28 DAYS, First dose on Wed03/05/24 at 2130, To flush and lock each port in dual implanted port. Flush each port with 10 mL sodium chloride 0.9% followed by either heparin or anticoagulant citrate as ordered. Max: 10 mL per each port lumen. $Given 03/05/2024 11:20 PM CDT 10 mLs sodium chloride (PF) 0.9% PF flush 10-20 mL 10-20 mL, Intracatheter, EVERY 1 MIN PRN, line flush, post meds or blood draw, to flush each lumen of the CVC Implanted port, Starting on Wed03/08/24 at 0826, 10 mL per port lumen post IV meds; 20 mL per port lumen post post blood draw. $Given 03/12/2024 11:35 AM CDT 10 mLs $Given 03/11/2024 12:45 PM CDT 10 mLs $Given 03/11/2024 12:15 PM CDT 10 mLs sodium chloride (PF) 0.9% PF flush 10-20 mL 10-20 mL, Intracatheter, EVERY 1 HOUR PRN, other, to de-access port when not in use, Starting on Wed03/08/24 at 0826, Use sodium chloride 0.9% at least daily to de-access each port and lock dormant implanted port while not in use. Flush each port access with 10 mL sodium chloride 0.9% MAX: 10 mL per each port lumen $Given 03/11/2024 6:08 PM CDT 10 mLs $Given 03/11/2024 11:31 AM CDT 10 mLs $Given 03/10/2024 4:33 PM CDT 10 mLs sodium chloride (PF) 0.9% PF flush 10-20 mL 10-20 mL, Intracatheter, EVERY 28 DAYS, First dose on Wed03/08/24 at 0830, To flush and lock each port in dual implanted port. Flush each port with 10 mL sodium chloride 0.9% followed by either heparin or anticoagulant citrate as ordered. Max: 10 mL per each port lumen. $Given 03/08/2024 9:56 AM CDT 10 mLs sodium chloride (PF) 0.9% PF flush 3 mL 3 mL, Intracatheter, EVERY 8 HOURS, First dose on Wed03/06/24 at 0100, to lock peripheral IV dormant line $Given 03/09/2024 8:04 AM CDT 3 mLs $Given 03/09/2024 1:00 AM CDT 3 mLs $Given 03/08/2024 12:50 AM CDT 3 mLs sodium chloride 0.9% BOLUS 1,000 mL Intravenous, 1,000 mL, ONCE, at 1,000 mL/hr, Administer over 1 Hours, On Wed03/05/24 at 2105, For 1 dose $New Bag 03/05/2024 9:47 PM CDT 1,000 mLs 1000 mL/hr sodium chloride 0.9% BOLUS 1,000 mL Intravenous, 1,000 mL, ONCE, at 1,000 mL/hr, Administer over 1 Hours, On Wed03/08/24 at 1500, For 1 dose $New Bag 03/08/2024 2:55 PM CDT 1,000 mLs 1000 mL/hr zolpidem (AMBIEN) tablet 10 mg 10 mg, Oral, AT BEDTIME PRN, sleep, Starting on Wed03/06/24 at 0055 $Given 03/07/2024 12:24 AM CDT 10 mg documented in this encounter Active and Recently Administered Medications Times are shown in CDT. Scheduled Medication Order 03/11/2024 03/12/2024 03/13/2024 apixaban ANTICOAGULANT (ELIQUIS) tablet 5 mg 5 mg, Oral, 2 TIMES DAILY, First dose on Wed03/06/24 at 0800, Indications: DVT-PE Treatment, On hold since Wed03/12/2024 at 1539 until manually unheld 0826 ($Given - Provider: Willow Butt RN)2026 ($Given - Provider: Funmilayo Gallego RN) 0911 ($Given - Provider: Willow Butt RN)1539 (Held by provider - Provider: Masood Amato MD - Reason: Other - Comment: Planned IR biopsy.)1999 (Automatically Held - Provider: Masood Amato MD) 0800 (Automatically Held - Provider: Masood Amato MD)1917 (Unheld by provider - Provider: Orders Generic Provider) childrens multivitamin with iron (FLINTSTONES COMPLETE) chewable tablet 1 tablet 1 tablet, Oral, DAILY, First dose on Wed03/07/24 at 1200 0827 ($Given - Provider: Willow Butt RN) 0911 ($Given - Provider: Willow Butt RN) 0913 ($Given - Provider: Kym Francois RN) ertapenem (INVanz) 1 g vial to attach to NS 100 mL bag Routine, 1 g, Intravenous, EVERY 24 HOURS, First dose on Wed03/11/24 at 1100, Infuse over 30 minutes., Indications: Bacteremia 1130 ($New Bag - Provider: Willow Butt RN) 1134 ($New Bag - Provider: Willow Butt RN) 1100 ($New Bag - Provider: Kym Francois RN) famotidine (PEPCID) injection 40 mg 40 mg, Intravenous, Administer over 2 Minutes, EVERY 12 HOURS, First dose on Wed03/10/24 at 1700, For ordered IV doses 1-20 mg, give IV Push diluted with 5-10 mL NS over a minimum of 2 minutes. 0544 ($Given - Provider: Antwon Sheldon RN)1808 ($Given - Provider: Willow Butt RN) 0524 ($Given - Provider: Funmilayo Gallego RN)1801 ($Given - Provider: Kasey Sanchez RN) 0536 ($Given - Provider: Funmilayo Gallego RN)1700 (Canceled Entry - Provider: Orders Generic Provider - Comment: Automatically canceled at discontinue of medication order) folic acid (FOLVITE) tablet 1 mg 1 mg, Oral, DAILY, First dose on Wed03/06/24 at 0800 0826 ($Given - Provider: Willow Butt RN) 0911 ($Given - Provider: Willow Butt RN) 0914 ($Given - Provider: Kym Francois RN) gabapentin (NEURONTIN) capsule 800 mg 800 mg, Oral, 3 TIMES DAILY, First dose on Wed03/06/24 at 0100 0826 ($Given - Provider: Willow Butt RN)1413 ($Given - Provider: Willow Butt RN)2338 ($Given - Provider: Funmilayo Gallego RN - Comment: Clustered care; refused earlier due to the pain felt) 0910 ($Given - Provider: Willow Butt RN)1400 ($Given - Provider: Willow Butt RN)1944 ($Given - Provider: Funmilayo Gallego RN) 0914 ($Given - Provider: Kym Francois RN)1442 ($Given - Provider: Kmy Francois RN) heparin 100 unit/mL injection 5-10 mL 5-10 mL, Intracatheter, EVERY 28 DAYS, First dose on Wed03/08/24 at 0830, To de-access each port in dual implanted port. Flush with 10 mL NS sodium chloride 0.9% flush followed by 5 mL heparin (100 units/mL) at discharge and at least every 28 days. MAX: 5 mL per each port lumen heparin lock flush 10 UNIT/ML injection 5-10 mL 5-10 mL, Intracatheter, EVERY 24 HOURS, First dose on Wed03/08/24 at 0830, To lock each dormant port in dual implanted port. MAX: 5 mL of heparin for each lumen Check PRN heparin flush order to see when the last dose of the PRN heparin was given before administering this heparin dose. Flush with sodium chloride 0.9% followed by the heparin flush. 0825 ($Given - Provider: Willow Butt RN) 0910 ($Given - Provider: Willow Butt RN) 1200 ($Given - Provider: Kym Francois RN) Lidocaine (LIDOCARE) 4 % Patch 1 patch 1 patch, Transdermal, EVERY 24 HOURS 0800, Administer over 12 Hours, First dose on Wed03/07/24 at 0630, Apply patch(s) to area of back pain. To prevent lidocaine toxicity, patient should be patch free for 12 hrs daily. Patches may be cut to smaller size prior to removing release liner. Reminder: Remove previous patch before applying new patch. NEVER APPLY HEAT OVER PATCH which increases absorption and may lead to local anesthetic toxicity. Do not apply over area where liposomal bupivacaine was injected for 96 hours post injection. 0826 ($Patch/Med Applied - Provider: Willow Butt RN - Comment: middle lower back)210 (Patch/Med Removed - Provider: Funmilayo Gallego RN) 0911 ($Patch/Med Applied - Provider: Willow Butt RN - Comment: lower middle back)213 (Patch/Med Removed - Provider: Funmilayo Gallego RN) 0914 ($Patch/Med Applied - Provider: Kym Francois RN)1717 (Due: Patch/Med Removed - Provider: Orders Generic Provider - Comment: Time automatically adjusted from order being discontinued) methocarbamol (ROBAXIN) tablet 500 mg 500 mg, Oral, 4 TIMES DAILY, First dose on Wed03/08/24 at 0830 0827 (Not Given - Provider: Willow Butt RN - Reason: Patient/family refused)1131 (Not Given - Provider: Willow Butt RN - Reason: Patient/family refused)1537 (Not Given - Provider: Willow Butt RN - Reason: Patient/family refused)2102 (Not Given - Provider: Funmilayo Gallego RN - Reason: Patient/family refused) 0911 (Not Given - Provider: Willow Butt RN - Reason: Patient/family refused)1134 (Not Given - Provider: Willow Butt RN - Reason: Patient/family refused)1536 (Not Given - Provider: Kasey Sanchez RN - Reason: Patient/family refused)1945 ($Given - Provider: Funmilayo Gallego RN) 0914 ($Given - Provider: Kym Francois RN)1226 (Not Given - Provider: Kym Francois RN - Reason: Patient/family refused)1600 (Canceled Entry - Provider: Orders Generic Provider - Comment: Automatically canceled at discontinue of medication order) methylPREDNISolone (MEDROL) tablet 4 mg (COMPLETED)(Linked Group 1) 4 mg, Oral, EVERY MORNING BEFORE BREAKFAST, First dose on Wed03/09/24 at 0730, For 5 doses, Give before breakfast on days 2-6 of MEDROL DOSEPAK. 0826 ($Given - Provider: Willow Butt RN) 0911 ($Given - Provider: Willow Butt RN) 0914 ($Given - Provider: Kym Francois RN) methylPREDNISolone (MEDROL) tablet 4 mg (COMPLETED)(Linked Group 1) 4 mg, Oral, DAILY WITH LUNCH, First dose on Wed03/09/24 at 1200, For 3 doses, Give after lunch on days 2-4 of MEDROL DOSEPAK. 1131 ($Given - Provider: Willow Butt RN) methylPREDNISolone (MEDROL) tablet 4 mg (COMPLETED)(Linked Group 1) 4 mg, Oral, AT BEDTIME, First dose on Wed03/10/24 at 2200, For 3 doses, Give at bedtime on days 3-5 of MEDROL DOSEPAK. 2135 ($Given - Provider: Funmilayo Gallego RN) 211 ($Given - Provider: Funmilayo Gallego RN) pantoprazole (PROTONIX) IV push injection 40 mg 40 mg, Intravenous, DAILY, First dose on Wed03/08/24 at 1330, Irritant. 0826 ($Given - Provider: Willow Butt RN) 0910 ($Given - Provider: Willow Butt RN) 0913 ($Given - Provider: Kym Francois RN) scopolamine (TRANSDERM) 72 hr patch 1 patch(Linked Group 2) 1 patch, Transdermal, EVERY 72 HOURS, Administer over 72 Hours, First dose on Wed03/08/24 at 1330, Apply patch to skin, behind ear. Remove every 72 hours. DO NOT CUT PATCH. If dose is for a half or quarter patch, RN to remove only half or quarter of the backing. Each 1.5 mg patch delivers 1 mg of scopolamine. Reminder: Remove previous patch before applying new patch. 1012 (Patch/Med Removed - Provider: Willow Butt RN - Comment: washed up and patch fell off)1239 ($Patch/Med Applied - Provider: Willow Butt RN) 1717 (Due: Patch/Med Removed - Provider: Orders Generic Provider - Comment: Time automatically adjusted from order being discontinued) scopolamine (TRANSDERM-SCOP) Patch in Place(Linked Group 2) First dose on Wed03/08/24 at 1330, Chart every shift, confirming that patch is still in place on patient (no barcode scan needed). See patch order for dose information. 0543 (Patch in Place - Provider: Antwon Sheldon RN)1413 (Patch in Place - Provider: Willow Butt RN)2139 (Patch in Place - Provider: Funmilayo Gallego RN) 0529 (Patch Free Period - Provider: Funmilayo Gallego RN - Comment: Patient might have removed it due to too much sweat.)1401 (Patch Free Period - Provider: Willow Butt RN - Comment: fell off pt earlier she said and she said is not nauseated now)213 (Patch Free Period - Provider: Funmilayo Gallego RN) 0545 (Patch Free Period - Provider: Funmilayo Gallego RN)1231 (Patch Free Period - Provider: Kym Francois RN - Comment: Pt reported that patch came off in bed 2 days ago.) sodium chloride (PF) 0.9% PF flush 10-20 mL 10-20 mL, Intracatheter, EVERY 28 DAYS, First dose on Wed03/08/24 at 0830, To flush and lock each port in dual implanted port. Flush each port with 10 mL sodium chloride 0.9% followed by either heparin or anticoagulant citrate as ordered. Max: 10 mL per each port lumen. Continuous Medication Order 03/11/2024 03/12/2024 03/13/2024 heparin 25,000 units in 0.45% NaCl 250 mL ANTICOAGULANT infusion 0-5,000 Units/hr (0-50 mL/hr), Intravenous, CONTINUOUS, Starting on Wed03/13/24 at 1230, --Nurse to use Heparin Infusion ADULT Dose Adjustments by RN order set after EVERY PTT result to place further orders (for bolus if needed, infusion adjustment if needed, and ordering next lab)- Starting infusion Rate = 1800 units/hr (Ordered: 03/13/2024) High Intensity Heparin Treatment- PTT monitoring WITH Boluses. GOAL: PTT = 60-99 seconds Beginning with the PTT collected 6 hours after starting heparin, adjust heparin using Heparin Infusion Dose Adjustment order set. IF HEPARIN INFUSION HELD FOR PROCEDURE: Restart heparin infusion at previous rate (no bolus needed). Nurse to place a one-time PTT lab order timed for 6 hours after heparin infusion was restarted., Heparin Therapy Type: High Intensity Heparin Infusion - No Initial Bolus (aPTT 60-99) 1559 (Not Given - Pr ovider: Kym Francois RN - Reason: Other - Comment: Pt discharging to home.) PRN Medication Order 03/11/2024 03/12/2024 03/13/2024 acetaminophen (TYLENOL) Suppository 650 mg(Linked Group 3) 650 mg, Rectal, EVERY 4 HOURS PRN, mild pain, fever, Starting on Wed03/08/24 at 1308, Maximum acetaminophen dose from all sources = 75 mg/kg/day not to exceed 4 grams/day. 2035 (See Alternative - Provider: Funmilayo Gallego RN) 0303 (See Alternative - Provider: Funmilayo Gallego RN) acetaminophen (TYLENOL) tablet 650 mg(Linked Group 3) 650 mg, Oral, EVERY 4 HOURS PRN, mild pain, fever, Starting on Wed03/08/24 at 1308, Maximum acetaminophen dose from all sources = 75 mg/kg/day not to exceed 4 grams/day. 2035 ($Given - Provider: Funmilayo Gallego RN) 0303 ($Given - Provider: Funmilayo Gallego RN) calcium carbonate (TUMS) chewable tablet 1,000 mg 1,000 mg, Oral, 4 TIMES DAILY PRN, heartburn, Starting on Wed03/06/24 at 0055 diazepam (VALIUM) injection 2.5 mg 2.5 mg, Intravenous, Administer over 1-4 Minutes, EVERY 4 HOURS PRN, nausea, Starting on Wed03/08/24 at 1304, Vesicant. This drug may cause significant respiratory depression. Monitor respiratory status and vital signs carefully for 1 hour after each dose. diphenhydrAMINE (BENADRYL) capsule 50 mg(Linked Group 4) 50 mg, Oral, EVERY 6 HOURS PRN, itching, Starting on Wed03/10/24 at 1629 1245 (See Alternative - Provider: Willow Butt RN)2338 (See Alternative - Provider: Funmilayo Gallego RN)2351 (Not Given - Provider: Funmilayo Gallego RN - Reason: Patient/family refused - Comment: Returned; got IV instead) 1639 (See Alternative - Provider: Leyla Wetzel RN) 1439 (See Alternative - Provider: Kym Francois RN) diphenhydrAMINE (BENADRYL) injection 25 mg(Linked Group 4) 25 mg, Intravenous, EVERY 6 HOURS PRN, itching, Starting on Wed03/10/24 at 1629, Protect from light. 1245 ($Given - Provider: Willow Butt RN - Comment: wasted 0.5 ml)2338 ($Given - Provider: Funmilayo Gallego RN)2351 (See Alternative - Provider: Funmilayo Gallego RN) 1639 ($Given - Provider: Leyla Wetzel RN) 1439 ($Given - Provider: Kym Francois RN) EPINEPHrine (ADRENALIN) kit 0.3 mg 0.3 mg, Intramuscular, EVERY 3 MIN PRN, hypotension or airway obstruction associated with IV iron hypersensitivity, Starting on Wed03/07/24 at 1133, For 2 doses, Up to a maximum of 2 doses. Administer in the anterior or lateral thigh. Discontinue when IV iron therapy complete. See kit labeling for dosing instructions. Not for direct undiluted intravenous injection (1mg/mL = 1:1000). Protect from light. heparin lock flush 10 UNIT/ML injection 5-10 mL 5-10 mL, Intracatheter, EVERY 1 HOUR PRN, post meds or blood draw, other, to lock each port in dual implanted port, Starting on Wed03/08/24 at 0826, Flush each port lumen with the sodium chloride 0.9% flush followed by the heparin flush. MAX dose: 5 mL of heparin for each lumen 1215 ($Given - Provider: Willow Butt RN) 0540 ($Given - Provider: Funmilayo Gallego RN)1217 ($Given - Provider: Willow Butt RN)1642 ($Given - Provider: Leyla Wetzel RN)1807 ($Given - Provider: Kasey Sanchez RN)2112 ($Given - Provider: Funmilayo Gallego RN) 0535 ($Given - Provider: Funmilayo Gallego RN) HYDROmorphone (DILAUDID) tablet 2 mg 2 mg, Oral, EVERY 3 HOURS PRN, moderate pain, IF pain not managed with non-pharmacological and non-opioid interventions, Starting on Wed03/06/24 at 0055, May use concomitant with non-opioid analgesics. HYDROmorphone (DILAUDID) tablet 4 mg 4 mg, Oral, EVERY 3 HOURS PRN, severe pain, IF pain not managed with non-pharmacological and non-opioid interventions, Starting on Wed03/06/24 at 0055, May use concomitant with non-opioid analgesics. 0016 ($Given - Provider: Antwon Sheldon RN)0319 ($Given - Provider: Antwon Sheldon RN)0619 ($Given - Provider: Antwon Sheldon RN)0932 ($Given - Provider: Willow Butt RN)1238 ($Given - Provider: Willwo Butt RN)1533 ($Given - Provider: Willow Butt RN)1853 ($Given - Provider: Willow Butt RN)2135 ($Given - Provider: Funmilayo Gallego RN) 0018 ($Given - Provider: Funmilayo Gallego RN)0304 ($Given - Provider: Funmilayo Gallego RN)0614 ($Given - Provider: Génesis Cramer RN)0947 ($Given - Provider: Leyla Wetzel RN)1248 ($Given - Provider: Willow Butt RN)1533 ($Given - Provider: Kasey Sanchez RN)1816 ($Given - Provider: Kasey Sanchez RN)2125 ($Given - Provider: Funmilayo Gallego RN) 0013 ($Given - Provider: Funmilayo Gallego RN)0307 ($Given - Provider: Funmilayo Gallego RN)0925 ($Given - Provider: Kym Francois RN)1230 ($Given - Provider: Kym Francois RN)1550 ($Given - Provider: Kym Francois RN) lactulose (CHRONULAC) solution 10 g 10 g, Oral, 2 TIMES DAILY PRN, constipation, Starting on Marleny 03/09/24 at 1353 lidocaine (LMX4) cream Topical, EVERY 1 HOUR PRN, pain, with VAD insertion, Starting on Wed03/06/24 at 0055, Apply at least 30 minutes prior to [...] mild pain with VAD insertion, Starting on Wed03/06/24 at 0055, MAX dose 1 mL subcutaneous OR intradermal along the side of the vein in divided doses as needed for VAD insertion. Do NOT give if patient has a history of allergy to any local anesthetic or any ahsan product. Do NOT use both lidocaine intradermal/subcutaneou s injection and the lidocaine cream on the same site. LORazepam (ATIVAN) injection 0.5 mg 0.5 mg, Intravenous, EVERY 4 HOURS PRN, anxiety, nausea, vomiting, Starting on Wed03/06/24 at 0055, if cannot take her oral ativan dose IV Route: Dilute with equal volume NS prior to use. This drug may cause significant respiratory depression. Monitor respiratory status and vital signs carefully for 1 hour after each dose. 1130 ($Given - Provider: Willow Butt RN - Comment: wasted 0.75 with kasey thompson) 1944 ($Given - Provider: Funmilayo Gallego RN) LORazepam (ATIVAN) tablet 1 mg 1 mg, Oral, EVERY 4 HOURS PRN, anxiety, Starting on Wed03/06/24 at 0055 melatonin tablet 5 mg 5 mg, Oral, AT BEDTIME PRN, sleep, Starting on Wed03/06/24 at 0055, Do not give unless at least 6 hours of uninterrupted sleep is expected. If patient has multiple medications ordered PRN sleep/insomnia, offer melatonin first. naloxone (NARCAN) injection 0.2 mg(Linked Group 5) 0.2 mg, Intravenous, EVERY 2 MIN PRN, opioid reversal, Starting on Wed03/06/24 at 1711, Administer intravenous route when available and notify [...] parameters have not improved after 4 naloxone doses. naloxone (NARCAN) injection 0.2 mg(Linked Group 5) 0.2 mg, Intramuscular, EVERY 2 MIN PRN, opioid reversal, Starting on Wed03/06/24 at 1711, Administer intramuscular if an intravenous route is [...] parameters have not improved after 4 naloxone doses. naloxone (NARCAN) injection 0.4 mg(Linked Group 5) 0.4 mg, Intravenous, EVERY 2 MIN PRN, opioid reversal, Starting on Wed03/06/24 at 1711, Administer intravenous route when available and notify [...] parameters have not improved after 4 naloxone doses. naloxone (NARCAN) injection 0.4 mg(Linked Group 5) 0.4 mg, Intramuscular, EVERY 2 MIN PRN, opioid reversal, Starting on Wed03/06/24 at 1711, Administer intramuscular if an intravenous route is [...] parameters have not improved after 4 naloxone doses. polyethylene glycol (MIRALAX) Packet 17 g 17 g, Oral, 2 TIMES DAILY PRN, constipation, Starting on Wed03/06/24 at 0055, IF more than 1 constipation PRN medication is ordered, administer step-cheatham as indicated, moving to the next step ONLY if prior step ineffective. Step 1: senna-docusate (SENOKOT-S; PERICOLACE) OR bisacodyl (DULCOLAX) EC tablet Step 2: polyethylene glycol (MIRALAX/GLYCOLAX) Step 3: bisacodyl (DULCOLAX) suppository Step 4: enema 1 Packet = 17 grams. Mix each gram with at least 1/2 ounce (15 mL) of water - 8 ounces for 17 g dose, 4 ounces for 8.5 g dose, 2 ounces for 4 g dose. Follow with the same volume of water. Hold for loose stools unless being administered as part of a bowel prep regimen or bowel clean out. senna-docusate (SENOKOT-S/PERICOLACE) 8.6-50 MG per tablet 1 tablet(Linked Group 6) 1 tablet, Oral, 2 TIMES DAILY PRN, constipation, Starting on Wed03/06/24 at 0055, If no bowel movement in 24 hours, increase to 2 tablets by mouth. IF more than 1 constipation PRN medication is ordered, administer step-cheatham as indicated, moving to the next step ONLY if prior step ineffective. Step 1: senna-docusate (SENOKOT-S; PERICOLACE) OR bisacodyl (DULCOLAX) EC tablet Step 2: polyethylene glycol (MIRALAX/GLYCOLAX) Step 3: bisacodyl (DULCOLAX) suppository Step 4: enema Hold for loose stools. senna-docusate (SENOKOT-S/PERICOLACE) 8.6-50 MG per tablet 2 tablet(Linked Group 6) 2 tablet, Oral, 2 TIMES DAILY PRN, constipation, Starting on Wed03/06/24 at 0055, IF more than 1 constipation PRN medication is ordered, administer step-cheatham as indicated, moving to the next step ONLY if prior step ineffective. Step 1: senna-docusate (SENOKOT-S; PERICOLACE) OR bisacodyl (DULCOLAX) EC tablet Step 2: polyethylene glycol (MIRALAX/GLYCOLAX) Step 3: bisacodyl (DULCOLAX) suppository Step 4: enema Hold for loose stools. sodium chloride (PF) 0.9% PF flush 10-20 mL 10-20 mL, Intracatheter, EVERY 1 MIN PRN, line flush, post meds or blood draw, to flush each lumen of the CVC Implanted port, Starting on Wed03/08/24 at 0826, 10 mL per port lumen post IV meds; 20 mL per port lumen post post blood draw. 1215 ($Given - Provider: Willow Butt RN)1245 ($Given - Provider: Willow Butt RN) 1135 ($Given - Provider: Willow Butt RN) sodium chloride (PF) 0.9% PF flush 10-20 mL 10-20 mL, Intracatheter, EVERY 1 HOUR PRN, other, to de-access port when not in use, Starting on Wed03/08/24 at 0826, Use sodium chloride 0.9% at least daily to de-access each port and lock dormant implanted port while not in use. Flush each port access with 10 mL sodium chloride 0.9% MAX: 10 mL per each port lumen 1131 ($Given - Provider: Willow Butt RN)1808 ($Given - Provider: Willow Butt RN) sodium chloride (PF) 0.9% PF flush 3 mL 3 mL, Intracatheter, EVERY 1 MIN PRN, line flush, other, to ensure patency or to lock dormant line, Starting on Wed03/06/24 at 0055 zolpidem (AMBIEN) tablet 10 mg 10 mg, Oral, AT BEDTIME PRN, sleep, Starting on Wed03/06/24 at 0055 Linked Groups Order Group 1: methylPREDNISolone (MEDROL) tablet 8 mg (COMPLETED) 8 mg, Oral, ONCE, On Wed03/08/24 at 0830, For 1 dose, Day 1 of MEDROL DOSEPAK. Nurse to schedule this dose for before breakfast on Day 1 (or for later during the day if breakfast time has already passed) And methylPREDNISolone (MEDROL) tablet 4 mg (COMPLETED) 4 mg, Oral, ONCE, On Wed03/08/24 at 1200, For 1 dose, Day 1 of MEDROL DOSEPAK. Nurse to schedule this dose for after lunch on DAY 1 (or for later during the day if lunch time has already passed). And methylPREDNISolone (MEDROL) tablet 4 mg (COMPLETED) 4 mg, Oral, ONCE, On Wed03/08/24 at 1800, For 1 dose, Day 1 of MEDROL DOSEPAK. Nurse to schedule this dose for after supper on Day 1 (or for later during the day if supper time has already passed). And methylPREDNISolone (MEDROL) tablet 8 mg (COMPLETED) 8 mg, Oral, AT BEDTIME, First dose on Wed03/08/24 at 2200, For 2 doses, Give at bedtime on Day 1 and 2 of MEDROL DOSEPAK. And methylPREDNISolone (MEDROL) tablet 4 mg (COMPLETED)Jump to med 4 mg, Oral, EVERY MORNING BEFORE BREAKFAST, First dose on Wed03/09/24 at 0730, For 5 doses, Give before breakfast on days 2-6 of MEDROL DOSEPAK. And methylPREDNISolone (MEDROL) tablet 4 mg (COMPLETED)Jump to med 4 mg, Oral, DAILY WITH LUNCH, First dose on Wed03/09/24 at 1200, For 3 doses, Give after lunch on days 2-4 of MEDROL DOSEPAK. And methylPREDNISolone (MEDROL) tablet 4 mg (COMPLETED) 4 mg, Oral, DAILY WITH SUPPER, First dose on Wed03/09/24 at 1700, For 2 doses, Give after supper on days 2 and 3 of MEDROL DOSEPAK. And methylPREDNISolone (MEDROL) tablet 4 mg (COMPLETED)Jump to med 4 mg, Oral, AT BEDTIME, First dose on Wed03/10/24 at 2200, For 3 doses, Give at bedtime on days 3-5 of MEDROL DOSEPAK. Group 2: scopolamine (TRANSDERM) 72 hr patch 1 patchJump to med 1 patch, Transdermal, EVERY 72 HOURS, Administer over 72 Hours, First dose on Wed03/08/24 at 1330, Apply patch to skin, behind ear. Remove every 72 hours. DO NOT CUT PATCH. If dose is for a half or quarter patch, RN to remove only half or quarter of the backing. Each 1.5 mg patch delivers 1 mg of scopolamine. Reminder: Remove previous patch before applying new patch. And scopolamine (TRANSDERM-SCOP) Patch in PlaceJump to med First dose on Wed03/08/24 at 1330, Chart every shift, confirming that patch is still in place on patient (no barcode scan needed). See patch order for dose information. Group 3: acetaminophen (TYLENOL) tablet 650 mgJump to med 650 mg, Oral, EVERY 4 HOURS PRN, mild pain, fever, Starting on Wed03/08/24 at 1308, Maximum acetaminophen dose from all sources = 75 mg/kg/day not to exceed 4 grams/day. Or acetaminophen (TYLENOL) Suppository 650 mgJump to med 650 mg, Rectal, EVERY 4 HOURS PRN, mild pain, fever, Starting on Wed03/08/24 at 1308, Maximum acetaminophen dose from all sources = 75 mg/kg/day not to exceed 4 grams/day. Group 4: diphenhydrAMINE (BENADRYL) capsule 50 mgJump to med 50 mg, Oral, EVERY 6 HOURS PRN, itching, Starting on Wed03/10/24 at 1629 Or diphenhydrAMINE (BENADRYL) injection 25 mgJump to med 25 mg, Intravenous, EVERY 6 HOURS PRN, itching, Starting on Wed03/10/24 at 1629, Protect from light. Group 5: naloxone (NARCAN) injection 0.2 mgJump to med 0.2 mg, Intravenous, EVERY 2 MIN PRN, opioid reversal, Starting on Wed03/06/24 at 1711, Administer intravenous route when available and notify [...] parameters have not improved after 4 naloxone doses. Or naloxone (NARCAN) injection 0.4 mgJump to med 0.4 mg, Intravenous, EVERY 2 MIN PRN, opioid reversal, Starting on Wed03/06/24 at 1711, Administer intravenous route when available and notify [...] parameters have not improved after 4 naloxone doses. Or naloxone (NARCAN) injection 0.2 mgJump to med 0.2 mg, Intramuscular, EVERY 2 MIN PRN, opioid reversal, Starting on Wed03/06/24 at 1711, Administer intramuscular if an intravenous route is [...] parameters have not improved after 4 naloxone doses. Or naloxone (NARCAN) injection 0.4 mgJump to med 0.4 mg, Intramuscular, EVERY 2 MIN PRN, opioid reversal, Starting on Wed03/06/24 at 1711, Administer intramuscular if an intravenous route is [...] parameters have not improved after 4 naloxone doses. Group 6: senna-docusate (SENOKOT-S/PERICOLACE) 8.6-50 MG per tablet 1 tabletJump to med 1 tablet, Oral, 2 TIMES DAILY PRN, constipation, Starting on Wed03/06/24 at 0055, If no bowel movement in 24 hours, increase to 2 tablets by mouth. IF more than 1 constipation PRN medication is ordered, administer step-cheatham as indicated, moving to the next step ONLY if prior step ineffective. Step 1: senna-docusate (SENOKOT-S; PERICOLACE) OR bisacodyl (DULCOLAX) EC tablet Step 2: polyethylene glycol (MIRALAX/GLYCOLAX) Step 3: bisacodyl (DULCOLAX) suppository Step 4: enema Hold for loose stools. Or senna-docusate (SENOKOT-S/PERICOLACE) 8.6-50 MG per tablet 2 tabletJump to med 2 tablet, Oral, 2 TIMES DAILY PRN, constipation, Starting on Wed03/06/24 at 0055, IF more than 1 constipation PRN medication is ordered, administer step-cheatham as indicated, moving to the next step ONLY if prior step ineffective. Step 1: senna-docusate (SENOKOT-S; PERICOLACE) OR bisacodyl (DULCOLAX) EC tablet Step 2: polyethylene glycol (MIRALAX/GLYCOLAX) Step 3: bisacodyl (DULCOLAX) suppository Step 4: enema Hold for loose stools. 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 Assessment Noted Time PHQ-9 Depression Total Score: 4 02/21/20 1:54 PM CDT documented as of this encounter Care Teams Gypsum Calciner Relationship Specialty Start [place] [address] [place] [address] PCP - General Family Medicine 04/22/23 [place] [address] [place] [address] Assigned Pain Medication Provider 12/07/22 [place] [address] [place] [address] Assigned PCP 01/23/23 [place] [address] [place] [address] Assigned Musculoskeletal Provider 01/23/23 Gregorio Dalton PA-C [address] [address] Assigned Surgical Provider 05/22/23 Kingsley Garcia MD [address] [place] [address] Assigned Heart and Vascular Provider 08/07/23 [place] [address] [place] [address] Family Medicine 09/10/23 Master Shea PA-C [address] [place] [address] Physician Drying Room Attendant Gastroenterology 09/10/23 Allyssa Justice MD [facility] [address] [place] [id number] Hematology & Oncology 12/10/23 Genaro Christian MD [address] [place] [address] Cardiovascular Disease 12/22/23 Master Shea PA-C [address] [place] [address] Assigned Gastroenterology Provider 12/23/23 Sienna Guillermo DO [address] [place] [id number] Physician Cardiovascular Disease 01/18/24 documented as of this encounter
--- OUTSIDE RECORDS SUMMARY | 2024-03-25 18:15 | XMS_ITS | Encounter Summary ---
Author Name Unknown Organization [place] Address [facility] [place] [address] Care Team Providers Care Wheel Aligner Name Role Phone Segundo Mcclelland MD Unavailable [phone] Segundo Mcclelland MD Unavailable [phone] Qamar Jackson MD Unavailable Segundo Mcclelland MD Primary Care Provider + Gregorio Dalton PA-C Unavailable [phone] Kingsley Garcia MD Unavailable + [phone] Segundo Mcclelland MD Unavailable [phone] Master Shea PA-C Unavailable Allyssa Justice MD Unavailable [phone] Genaro Christian MD Unavailable [phone] Master Shea-Shirley Unavailable Sienna Guillermo DO Unavailable Reason for Visit * Reason Onset Date Comments Forms 03/09/2024 [facility] Encounter Details Date Type Department Care Team (Late st Contact Info) Description 03/09/2024 Telephone [facility] [address] [place] [address] [place] [address] [place] [address] Forms ([facility]) Social History Tobacco Use Types Packs/Day [...] encounter Miscellaneous Notes * Telephone Encounter - Jolie Solomon RN - 03/13/2024 2:08 PM CDT Spoke to patient's egg caser, Ashely. Ashely states form needs to be signed by Dr. Mcclelland or covering provider authorizing discharging provider at hospital to prescribe IV abx and PO abx. If form is not completed today, patient's discharge alycia be delayed. This form was faxed by Taylor Cardozo in Dr. Mcclelland's absence and faxed back. Also called Renetta back to inform her form was completed. Jolie Solomon RN on 03/13/2024 at 2:23 PM * Telephone Encounter - Kait Rao - 03/09/2024 10:42 AM CDT Rec'd [facility] from [facility]. Placed in PCP basket for review and signature. . 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 Assessment Noted Time PHQ-9 Depression Total Score: 4 02/21/20 24 1:54 PM CDT documented as of this encounter Care Teams Wheel Aligner Relationship Specialty Start [place] [address] [address] [address] PCP - General Family Medicine 04/22/23 [place] [address] [address] [address] Assigned Pain Medication Provider 12/07/22 [place] [address] [address] [address] Assigned PCP 01/23/23 [place] [address] [place] [address] Assigned Musculoskeletal Provider 01/23/23 Gregorio Dalton PA-C [address] [address] Assigned Surgical Provider 05/22/23 Kingsley Garcia MD [address] [place] [address] Assigned Heart and Vascular Provider 08/07/23 [place] [address] [place] [address] Family Medicine 09/10/23 Master Shea PA-C [address] [place] [address] Physician Account Management Specialist Gastroenterology 09/10/23 Allyssa Justice MD [facility] [address] [address] Hematology & Oncology 12/10/23 Genaro Christian MD [address] [place] [id number] Cardiovascular Disease 12/22/23 Master Shea PA-C [address] [place] [address] Assigned Gastroenterology Provider 12/23/23 Sienna Guillermo DO [address] [place] [address] Physician Cardiovascular Disease 01/18/24 documented as of this encounter
--- OUTSIDE RECORDS SUMMARY | 2024-03-25 18:15 | XMS_ITS | Encounter Summary ---
Author Name Unknown Organization [place] Address [facility] [place] [address] Care Team Providers Care Paper Machine Back Tender Name Role Phone Segundo Mcclelland MD Unavailable [phone] Segundo Mcclelland MD Unavailable [phone] Qamar Jackson MD Unavailable Segundo Mcclelland MD Primary Care Provider + Gregorio Dalton PA-C Unavailable [phone] Kingsley Garcia MD Unavailable + [phone] Segundo Mcclelland MD Unavailable [phone] Master Shea PA-C Unavailable Allyssa Justice MD Unavailable [phone] Genaro Christian MD Unavailable [phone] Master Shea-Shirley Unavailable Sienna Guillermo DO Unavailable [phone] Encounter Details Date Type Department Care Team (Latest Contact Info) Description 03/05/2024 Travel Social History Tobacco Use Types Packs/Day [...] Description 05/09/2024 10:00 AM CDT Office Visit [facility] [address] [place] [address] [place] [address] [id number] documented as of this encounter Visit Diagnoses Not on file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 Assessment Noted Time PHQ-9 Depression Total Score: 4 02/21/20 24 1:54 PM CDT documented as of this encounter Care Teams Paper Machine Back Tender Relationship Specialty Start [place] [address] [address] [id number] PCP - General Family Medicine 04/22/23 [place] [address] [address] [id number] Assigned Pain Medication Provider 12/07/22 [place] [address] [address] [address] Assigned PCP 01/23/23 [place] [address] [address] [place] [address] Assigned Musculoskeletal Provider 01/23/23 Gregorio Dalton PA-C [address] [address] Assigned Surgical Provider 05/22/23 Kingsley Garcia MD [address] [place] [place] [address] Assigned Heart and Vascular Provider 08/07/23 [place] [address] [address] Family Medicine 09/10/23 Master Shea PA-C [address] [place] [address] Physician Student Support Advisor Gastroenterology 09/10/23 Allyssa Justice MD [facility] [address] [place] [address] Hematology & Oncology 12/10/23 Genaro Christian MD [address] [place], [place] [address] Cardiovascular Disease 12/22/23 Master Shea PA-C [address] [place] [address] Assigned Gastroenterology Provider 12/23/23 Sienna Guillermo DO [address] [place] [address] Physician Cardiovascular Disease 01/18/24 documented as of this encounter
--- OUTSIDE RECORDS SUMMARY | 2024-03-25 18:15 | XMS_ITS | Encounter Summary ---
Author Name Unknown Organization [place] Address [address] [place] [address] Care Team Providers Care Tribunal Member Name Role Phone Segunod Mcclelland MD Unavailable [phone] Segundo Mcclelland MD Unavailable [phone] Qamar Jackson MD Unavailable Segundo Mcclelland MD Primary Care Provider + Gregorio Dalton-Shirley Unavailable [phone] Kingsley Garcia MD Unavailable + [phone] Segundo Mcclelland MD Unavailable [phone] Master Shea PA-C Unavailable Allyssa Justice MD Unavailable [phone] Genaro Christian MD Unavailable [phone] Master Shea-C Unavailable Sienna Guillermo DO Unavailable Reason for Referral * Diagnostic Imaging CT Scan (Routine) - Authorized Specialty Diagnoses / Procedures Referred By Contzbigniew t Referred To Contact Radiology. Diagnoses Pulmonary nodules Procedures CT Chest w/o Contrast Allyssa Justice MD [facility] [address] [address] Referral ID Status Reason Start Date Expiration Date V isits Requested Visits Authorized [id number] Authorized 03/01/2024 03/01/2025 1 1 Reason for Visit * Reason Comments Consult * Consultation (Routine: Next available opening) - Pending Review Specialty Diagnoses / Procedures Referred By Contac t Referred To Contact Medical Oncology Diagnoses Anemia, unspecified type Allyssa Justice MD [facility] [address] [place] [address] Referral ID Status Reason Start Date Expiration Date V isits Requested Visits Authorized [id number] Pending Review 12/08/2023 12/07/2024 1 1 Encounter Details Date Type Department Care Team (Late st Contact Info) Description 03/01/2024 1:40 PM CDT Virtual Visit [facility] [address], [address] [facility] [place] [phone] Allyssa Justice MD [facility] [address] [place] [id number] Iron deficiency anemia, unspecified iron deficiency anemia type (Primary Dx); Anemia, unspecified type; Pulmonary nodules Social History Tobacco Use Types Packs/Day Years [...] Sign Reading Time Taken Comments Blood Pressure - - Pulse - - Temperature - - Respiratory Rate - - Oxygen Saturation - - Inhaled Oxygen Concentration - - Weight 88.5 kg (195 lb) 03/01/2024 1:22 PM CDT Height 167.6 cm (5' 6) 03/01/2024 1:22 PM CDT Body Mass Index 31.47 03/01/2024 1:22 PM CDT documented in this encounter Patient Instructions * Patient Instructions* Allyssa Justice MD - 03/01/2024 1:40 PM CDT 1. Continue Eliquis. 2. Labs every 2 months. Iron infusion and blood transfusion depending on labs. 3. CT chest in 1 year. 4. See me in 1 year. documented in this encounter Progress Notes * Allyssa Justice MD - 03/01/2024 1:40 PM CDT Virtual Visit Details Type of service: Video Visit Originating Location (pt. Location): Home Distant Location (provider location): On-site Platform used for Video Visit: HipChat HEMATOLOGY HISTORY: Mrs. 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 -Unprovoked pulmonary embolism. 1. Patient has been anemic since age of 13. Initially anemia was due to to menstrual bleeding. She had a hysterectomy done. 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 -Patient has had multiple EGD done. At one time she had Kathleen-Mustafa tear. Last EGD on 12/07/2023 revealed erosive gastropathy with no bleeding. Otherwise normal. 2. On 12/05/2023: -Hemoglobin of 7.1 and MCV of 75. -Iron of 19. -Normal folate. -Normal vitamin B12. 3. Patient had -induced pulmonary embolism. It happened after delivery. -On 06/18/2023, right upper extremity ultrasound revealed DVT. This was secondary to PICC line. Patient was treated with few months of anticoagulation. It was stopped in mid October 2023. -CT chest angiogram on 12/02/23 reveals segmental pulmonary embolism and right lower lobe and possibly left lower lobe. Patient was not on any anticoagulation at that time. Unprovoked. -Eliquis started in November 2023. 4. Patient received IV Venofer in November 2023. -On 03/02/24, hemoglobin normal at 12.3 and MCV normal at 91. Subjective: Mrs. Lopez is a 38-year-old female with iron deficiency anemia. Iron deficiency anemia due to malabsorption of iron. Patient has gastroparesis. Patient is intolerant to oral iron. It causes abdominal pain. She has received IV iron. That helps with her iron deficiency anemia. Patient also has history of thrombosis. Previously she had -induced pulmonary embolism andalso PICC line induced upper extremity DVT. In November 2023, she was found to have pulmonary embolism. This was unprovoked. She is currently on Eliquis. Overall her condition is stable. She has mild generalized weakness. Weakness has improved with improvement in anemia. No headache. She gets dizziness because of POTS. No chest pain. No shortness of breath. No abdominal pain. No nausea or vomiting. No urinary complaint. No bowel problem. No bleeding. She had hysterectomy done before. No vaginal bleeding. Exam: Patient is alert and oriented x 3. Not in distress Rest of the system not examined as this is a video visit. Labs: CBC and BMP reviewed Assessment: 1. 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 2. 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 3. Unprovoked pulmonary embolism diagnosed in November 2023. 4. History of -induced pulmonary embolism and PICC line induced right upper extremity DVT. 5. Lung nodules. Plan: 1. Continue Eliquis. 2. Labs every 2 months. Iron infusion and blood transfusion depending on labs. 3. CT chest in 1 year. 4. See me in 1 year. Discussion: 1. Labs were reviewed with her. Her hemoglobin and MCV are normal. Explained to her that iron deficiency anemia resolved with iron infusion. Patient is at risk of anemia. She is on anticoagulation. She has gastroparesis. She is at high riskof GI bleeding. Explained to the patient that we will monitor labs including CBC and iron studies every 2 months. Iron infusion and transfusion will be given as needed. Patient advised to see a physician sooner if she has symptom of anemia. 2. Patient has pulmonary embolism. This is unprovoked. She will continue on Eliquis. Plan is for lifelong anticoagulation unless bleeding becomes an issue. 3. Patient has lung nodules. Likely benign. Will continue to monitor it. Will get CT chest in 1 year. 4. She had few questions which were all answered. I will see her in 1 year. Advised her to call us with any questions or concerns. Total video visit time of 45 minutes. Time spent in today's visit, review of chart/investigations today and documentation today. documented in this encounter Nursing Notes * Angelica Shen - 03/01/2024 1:40 PM CDT Is the patient currently in the state of [place]? YES Visit mode:VIDEO If the visit is dropped, the patient can be reconnected by: VIDEO VISIT: Text to cell phone: Telephone Information: Will anyone else be joining the visit? NO (If patient encounters technical issues they should call [phone] :[phone]) How would you like to obtain your AVS? MyChart Are changes needed to the allergy or medication list? Pt declined med review Reason for visit: Consult Angelica Gee VVF documented in this encounter Plan of Treatment Upcoming Encounters Date Type Department Care Team (Late st Contact Info) Description 05/09/2024 10:00 AM CDT Office Visit [facility] [place] [address] [place] [address] [place] [address] [place] [address] Scheduled Orders Name Type Priority Associated Diagnoses Orde r Schedule CBC with platelets Lab Routine Iron deficiency anemia, unspecified iron deficiency anemia type 2 months for 6 Occurrences starting 03/01/2024 until 03/01/2025 Iron and iron binding capacity Lab Routine Iron deficiency anemia, unspecified iron deficiency anemia type 2 months for 6 Occurrences starting 03/01/2024 until 03/01/2025 Ferritin Lab Routine Iron deficiency anemia, unspecified iron deficiency anemia type 2 months for 6 Occurrences starting 03/01/2024 until 03/01/2025 CT Chest w/o Contrast Imaging Routine Pulmonary nodules Expected: 03/01/2025 (Approximate), Expires: 03/01/2025 documented as of this encounter Visit Diagnoses Diagnosis Iron deficiency anemia, unspecified iron deficiency anemia type- Primary Anemia, unspecified type Pulmonary nodules Other nonspecific abnormal finding of lung field 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 Assessment Noted Time PHQ-9 Depression Total Score: 4 02/21/20 24 1:54 PM CDT documented as of this encounter Care Teams Tribunal Member Relationship Specialty Start [place] [address] [place] [address] PCP - General Family Medicine 04/22/23 [place] [address] [address] [place] [address] Assigned Pain Medication Provider 12/07/22 [place] [address] [place] [address] Assigned PCP 01/23/23 [place] [address] [place] [address] Assigned Musculoskeletal Provider 01/23/23 Gregorio Dalton PA-C [address] [place] [address] Assigned Surgical Provider 05/22/23 Kingsley Garcia MD [address] [place] [address] Assigned Heart and Vascular Provider 08/07/23 [place] [address] [place] [address] Family Medicine 09/10/23 Master Shea PA-C [address] [place] [address] Physician Refrigerated National Truck Driver Gastroenterology 09/10/23 Allyssa Justice MD [facility] [address] [place] [address] Hematology & Oncology 12/10/23 Genaro Christian MD [address] [place] [address] Cardiovascular Disease 12/22/23 Master Shea PA-C [address] [place] [address] Assigned Gastroenterology Provider 12/23/23 Sienna Guillermo DO [address] [place] [address] Physician Cardiovascular Disease 01/18/24 documented as of this encounter
--- OUTSIDE RECORDS SUMMARY | 2024-03-25 18:15 | XMS_ITS | Encounter Summary ---
Author Name Unknown Organization [place] Address [address] [facility] [place] [address] Care Team Providers Care Tie Cutter Name Role Phone Segundo Mcclelland MD Unavailable [phone] Segundo Mcclelland MD Unavailable [phone] Qamar Jackson MD Unavailable Segundo Mcclelland MD Primary Care Provider + Gregorio Dalton PA-C Unavailable [phone] Kingsley Garcia MD Unavailable [phone] Segundo Mcclelland MD Unavailable Master Shea PA-C Unavailable Allyssa Justice MD Unavailable [phone] Genaro Christian MD Unavailable [phone] Master Shea-Shirley Unavailable Sienna Guillermo DO Unavailable [phone] Encounter Details Date Type Department Care Team (Late st Contact Info) Description 03/06/2024 [facility] [address] [place] [address] [place] [address] [place] [address] Social History Tobacco Use Types Packs/Day Years [...] encounter Miscellaneous Notes * Telephone Encounter - Sarah Stevens - 03/06/2024 1:26 PM CDT Called Ashely at [facility]. After discharge needs form neuro, infectious disease or hospitalist. Not needed while inpatient. Ashely will keep in touch with the school social worker and when she knows who the patient will be seeing, she will call and let the TC know. Form filled out as much as I could, and will place in TC's basket. Norma Stevens LICENSING SERVICES CLERK documented in this encounter Plan of Treatment Upcoming Encounters Date Type Department Care Team (Late st Contact Info) Description 05/09/2024 10:00 AM CDT Office Visit [facility] [place] [address] [place] [place] [address] [place] [address] [place] [address] documented as of this encounter Visit Diagnoses Not on file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 Assessment Noted Time PHQ-9 Depression Total Score: 4 02/21/20 1:54 PM CDT documented as of this encounter Care Teams Tie Cutter Relationship Specialty Start [place] [address] [address] [place] [address] PCP - General Family Medicine 04/22/23 [place] [address] [place] [address] Assigned Pain Medication Provider 12/07/22 [place] [address] [address] [place] [address] Assigned PCP 01/23/23 [place] [address] [place] [address] Assigned Musculoskeletal Provider 01/23/23 Gregorio Dalton PA-C [address] [place] [address] Assigned Surgical Provider 05/22/23 Kingsley Garcia MD [address] [place] [address] Assigned Heart and Vascular Provider 08/07/23 [place] [address] [place] [address] Family Medicine 09/10/23 Master Shea PA-C [address] [place] [address] Physician Awning Hanger Supervisor Gastroenterology 09/10/23 Allyssa Justice MD [facility] [address] [place] [address] Hematology & Oncology 12/10/23 Genaro Christian MD [address] [place] [address] Cardiovascular Disease 12/22/23 Master Shea PA-C [address] [place] [address] Assigned Gastroenterology Provider 12/23/23 Sienna Guillermo DO [address] [place] [address] Physician Cardiovascular Disease 01/18/24 documented as of this encounter
--- OUTSIDE RECORDS SUMMARY | 2024-03-25 18:15 | XMS_ITS | Encounter Summary ---
Author Name Unknown Organization [place] Address [facility] [place] [address] Care Team Providers Care Rapier Insertion Loom Fixer Name Role Phone Segundo Mcclelland MD Unavailable [phone] Segundo Mcclelland MD Unavailable [phone] Qamar Jackson MD Unavailable Segundo Mcclelland MD Primary Care Provider + Gregorio Dalton PA-C Unavailable [phone] Kingsley Garcia MD Unavailable + [phone] Segundo Mcclelland MD Unavailable [phone] Master Shea PA-C Unavailable Allyssa Justice MD Unavailable [phone] Genaro Christian MD Unavailable [phone] Master Shea-Shirley Unavailable Sienna Guillermo DO Unavailable [phone] Encounter Details Date Type Department Care Team (Latest Contact Info) Description 02/26/2024 Travel Social History Tobacco Use Types Packs/Day [...] Description 05/09/2024 10:00 AM CDT Office Visit [facility] [address] [place] [address] [place] [address] [id number] documented as of this encounter Visit Diagnoses Not on file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 Assessment Noted Time PHQ-9 Depression Total Score: 4 02/21/20 24 1:54 PM CDT documented as of this encounter Care Teams Rapier Insertion Loom Fixer Relationship Specialty Start [place] [address] [address] [id number] PCP - General Family Medicine 04/22/23 [place] [address] [address] [id number] Assigned Pain Medication Provider 12/07/22 [place] [address] [address] [address] Assigned PCP 01/23/23 [place] [address] [place] [address] Assigned Musculoskeletal Provider 01/23/23 Gregorio Dalton PA-C [address] [address] Assigned Surgical Provider 05/22/23 Kingsley Garcia MD [address] [place] [address] Assigned Heart and Vascular Provider 08/07/23 [place] [address] [address] [address] Family Medicine 09/10/23 Master Shea PA-C [address] [place] [place] [address] Physician Managed Care Nurse Gastroenterology 09/10/23 Allyssa Justice MD [facility] [address] [place] [address] Hematology & Oncology 12/10/23 Genaro Christian MD [address] [place], [place] [address] Cardiovascular Disease 12/22/23 Master Shea PA-C [address] [place] [place] [address] Assigned Gastroenterology Provider 12/23/23 Sienna Guillermo DO [address] [place] [address] Physician Cardiovascular Disease 01/18/24 documented as of this encounter
--- OUTSIDE RECORDS SUMMARY | 2024-03-25 18:15 | XMS_ITS | Encounter Summary ---
Author Name Unknown Organization [place] Address [facility] [place] [address] Care Team Providers Care Flat Knitter Name Role Phone Segundo Mcclelland MD Unavailable [phone] Segundo Mcclelland MD Unavailable [phone] Qamar Jackson MD Unavailable Segundo Mcclelland MD Primary Care Provider + Gregorio Dalton PA-C Unavailable [phone] Kingsley Garcia MD Unavailable + [phone] Segundo Mcclelland MD Unavailable [phone] Master Shea PA-C Unavailable Allyssa Justice MD Unavailable [phone] Genaro Christian MD Unavailable [phone] Masetr Shea PA-C Unavailable Sienna Guillermo DO Unavailable [phone] Reason for Visit * Reason Onset Date Comments Pain 03/03/2024 Encounter Details Date Type Department Care Team (Late st Contact Info) Description 03/03/2024 Telephone [facility] [address] [place] [address] [place] [address] [place] [address] Pain Social History Tobacco Use Types Packs/Day Years [...] encounter Miscellaneous Notes * Telephone Encounter - Alexandria Forrest RN - 03/03/2024 3:21 PM CDT Called pt and advised of below from Dr Mcclelland. Pt verbalized understanding and agreeable to plan. Alexandria Forrest RN, BSN [facility] * Telephone Encounter - Segundo Mcclelland MD - 03/03/2024 3:08 PM CDT I'd recommend scheduling online AND continuing to call. That was she at least has SOMETHING on the books, although they will probably work her in sooner. Segundo Mcclelland MD * Telephone Encounter - Giovani Mandujano RN - 03/03/2024 2:[address] Mcclelland, Pt calls back to inform provider that she has left 2 voicemail's to speak with Dr. Stevens team. Pt states she has not yet heard back from the [facility] team, and her call is always directed back to the voicemail scheduling line. Pt states she cannot go to the [facility] as they do not have neurosurgery team. Pt states that she needs appt with surgical team. Pt inquires if provider would recommend scheduling online, even though she won't necessarily know the plan. Please review and advise, thanks! Giovani Mandujano RN on 03/03/2024 at 2:33 PM * Telephone Encounter - Giovani Mandujano RN - 03/03/2024 11:[address] Mclcelland, Pt calls to inquire if you have seen her refill request for Dilaudid and her e- visit. Pt states sheis in severe pain and only has one tablet of Dilaudid left. Pt states she will have to save her last pill until her [facility] visit if it is not refilled. Advised patient that typically 10/10 pain management is ED recommendation. Routing request to provider. Pt seen at ED yesterday, per chart review: Patient was updated on need for close outpatient followup with neurosurgery as well as her PCP. She is ambulating around the room without difficulty. Return precautions given including fever, increasing pain, bladder/bowel incontinence or should symptoms worsen to promptly represent. Patient has ahistory of chronic opiate and benzo use so narcotics will not be administered on discharge. Patient was requesting additional narcotics prior to discharge and I stated unfortunately this would not beprovided today. I offered lidocaine patches though she states only PCP can write her prescriptions.She plans to contact him tomorrow. Ting Arriaga, DO 03/02/242231 This patient has chronic pain and drug-seeking behaviors. She will not be provided IV narcotics inthe emergency department. I did give her her home dose of 2 mg oral Dilaudid which could be administered every 4 hours. She also has claustrophobia and will require oral Ativan prior to her MRI but she does not require IV benzodiazepines. At the end of my shift she is awaiting MRI. She was endorsedto my partner, Dr. Hartman. Please review and advise. Thanks! Giovani Mandujano, RN on 03/03/2024 at 11:43 AM documented in this encounter Plan of Treatment Upcoming Encounters Date Type Department Care Team (Late st Contact Info) Description 05/09/2024 10:00 AM CDT Office Visit [facility] [address] [place] [address] [place] [address] [place] [address] documented as of this encounter Visit Diagnoses Not on file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 Assessment Noted Time PHQ-9 Depression Total Score: 4 02/21/20 24 1:54 PM CDT documented as of this encounter Care Teams Flat Knitter Relationship Specialty Start [place] [address] [address] [address] PCP - General Family Medicine 04/22/23 [place] [address] [address] [address] Assigned Pain Medication Provider 12/07/22 [place] [address] [place] [address] Assigned PCP 01/23/23 [place] [address] [place] [address] Assigned Musculoskeletal Provider 01/23/23 Gregorio Dalton PA-C [address] [place] [address] Assigned Surgical Provider 05/22/23 Kingsley Garcia MD [address] [place] [address] Assigned Heart and Vascular Provider 08/07/23 [place] [address] [place] [address] Family Medicine 09/10/23 Master Shea PA-C [address] [place] [address] Physician Furnace Tender Gastroenterology 09/10/23 Allyssa Justice MD [facility] [address] [place] [address] Hematology & Oncology 12/10/23 Genaro Christian MD [address] [place] [address] Cardiovascular Disease 12/22/23 Master Shea PA-C [address] [place] [address] Assigned Gastroenterology Provider 12/23/23 Sienna Guillermo DO [address] [place] [address] Physician Cardiovascular Disease 01/18/24 documented as of this encounter
--- OUTSIDE RECORDS SUMMARY | 2024-03-25 18:15 | XMS_ITS | Encounter Summary ---
Author Name Unknown Organization [place] Address [facility] [place] [address] Care Team Providers Care Manager Branch Name Role Phone Segundo Mcclelland MD Unavailable [phone] Segundo Mcclelland MD Unavailable [phone] Qamar Jackson MD Unavailable Segundo Mcclelland MD Primary Care Provider + Gregorio Dalton PA-C Unavailable [phone] Kingsley Garcia MD Unavailable + [phone] Segundo Mcclelland MD Unavailable [phone] Master Shea PA-C Unavailable Allyssa Justice MD Unavailable [phone] Genaro Christian MD Unavailable + [phone] Master Shea-Shirley Unavailable Sienna Guillermo DO Unavailable +[phone] Allyssa Justice MD Unavailable [phone] Reason for Visit * Reason Onset Date Comments Refill Request 03/03/2024 Encounter Details Date Type Department Care Team (Late st Contact Info) Description 03/03/[address] [address] [place] [address] [place] [address] Refill Request Social History Tobacco Use Types [...] Telephone Encounter - Sienna Wilder RN - 03/03/2024 12:28 PM CDT Will forward to Dr. Mcclelland. documented in this encounter Plan of Treatment Upcoming Encounters Date Type Department Care Team (Late st Contact Info) Description 05/09/2024 10:00 AM CDT Office Visit [facility] [address] [address] [place] [address] [address] [address] documented as of this encounter Visit Diagnoses Diagnosis Acute low back pain with radicular symptoms, duration less than 6 weeks 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 Assessment Noted Time PHQ-9 Depression Total Score: 4 02/21/20 24 1:54 PM CDT documented as of this encounter Care Teams Manager Branch Relationship Specialty Start [place] [address] [address] [address] PCP - General Family Medicine 04/22/23 [place] [address] [address] [address] Assigned Pain Medication Provider 12/07/22 [place] [address] [address] [address] Assigned PCP 01/23/23 [place] [address] [address] [address] [address] Assigned Musculoskeletal Provider 01/23/23 Gregorio Dalton PA-C [address] [address] Assigned Surgical Provider 05/22/23 Kingsley Garcia MD [address] [place] [address] Assigned Heart and Vascular Provider 08/07/23 [place] [address] [address] [address] Family Medicine 09/10/23 Master Shea PA-C [address] [place] [address] Physician Customs Consultant Gastroenterology 09/10/23 Allyssa Justice MD [facility] [address] [place] [address] [place] [address] Hematology & Oncology 12/10/23 Genaro Christian MD [address] [place] [address] Cardiovascular Disease 12/22/23 Master Shea PA-C [address] [place] [address] Assigned Gastroenterology Provider 12/23/23 Sienna Guillermo DO [address] [place] [address] Physician Cardiovascular Disease 01/18/24 Allyssa Justice MD [facility] [address] [address] [address] Assigned Cancer Care Provider 03/21/24 documented as of this encounter
--- OUTSIDE RECORDS SUMMARY | 2024-03-25 18:15 | XMS_ITS | Encounter Summary ---
Author Name Unknown Organization [place] Address [facility] [place] [address] Care Team Providers Care Inclinometer Tester Name Role Phone Segundo Mcclelland MD Unavailable [phone] Segundo Mcclelland MD Unavailable [phone] Qamar Jackson MD Unavailable Segundo Mcclelland MD Primary Care Provider + Gregorio [place] PA-C Unavailable [phone] Kingsley Garcia MD Unavailable + [phone] Segundo Mcclelland MD Unavailable [phone] Master Shea PA-C Unavailable Allyssa Justice MD Unavailable [phone] Genaro Christian MD Unavailable + [phone] Master Shea-C Unavailable Sienna Guillermo DO Unavailable +[phone] Reason for Visit * Reason Comments Other Entered automaticall y based on patient selection in [employer]. Encounter Details Date Type Department Care Team (Late st Contact Info) Description 03/02/2024 10:55 PM CDT E-Visit [facility] [address] [place] [address] [place] [address] [place] [address] Other (Entered automatically based on ngozi... Social [...] Encounter - Segundo Mcclelland MD - 03/03/2024 12:50 PM CDT Provider E-Visit time total (minutes): ira documented in this encounter Plan of Treatment Upcoming Encounters Date Type Department Care Team (Late st Contact Info) Description 05/09/2024 10:00 AM CDT Office Visit [facility] [place] [address] [address] [place] [address] [address] [address] documented as of this encounter Visit Diagnoses Diagnosis Acute low back pain with radicular symptoms, duration less than 6 weeks 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 Assessment Noted Time PHQ-9 Depression Total Score: 4 02/21/20 24 1:54 PM CDT documented as of this encounter Care Teams Inclinometer Tester Relationship Specialty Start [place] [address] [address] [address] PCP - General Family Medicine 04/22/23 [place] [address] [address] [address] Assigned Pain Medication Provider 12/07/22 [place] [address] [address] [address] Assigned PCP 01/23/23 [place] [address] [place] [address] [address] Assigned Musculoskeletal Provider 01/23/23 Gregorio [place] PA-C [address] [address]555[address] Assigned Surgical Provider 05/22/23 Kingsley Garcia MD [address] [place] [address] Assigned Heart and Vascular Provider 08/07/23 [place] [address] [address] [address] Family Medicine 09/10/23 Master Shea PA-C [address] [place] [address] Physician Warp Dyeing Tender Gastroenterology 09/10/23 Allyssa Justice MD [facility] [address] [address] [address] Hematology & Oncology 12/10/23 Genaro Christian MD [address] [place] [address] Cardiovascular Disease 12/22/23 Master Shea PA-C [address] [place] [address] Assigned Gastroenterology Provider 12/23/23 Sienna Guillermo DO [address] [address] Physician Cardiovascular Disease 01/18/24 documented as of this encounter
--- OUTSIDE RECORDS SUMMARY | 2024-03-25 18:16 | XMS_ITS | Encounter Summary ---
Author Name Unknown Organization [place] Address [facility] [place] [address] Care Team Providers Care Substance Abuse Rn Name Role Phone Segundo Mcclelland MD Unavailable [phone] Segundo Mcclelland MD Unavailable [phone] Qamar Jackson MD Unavailable Segundo Mcclelland MD Primary Care Provider + Gregorio Dalton PA-C Unavailable [phone] Kingsley Garcia MD Unavailable + [phone] Segundo Mcclelland MD Unavailable [phone] Master Shea PA-C Unavailable Allyssa Justice MD Unavailable [phone] Genaro Christian MD Unavailable + [phone] Master Shea-Shirley Unavailable Sienna Guillermo DO Unavailable +[phone] Reason for Visit * Reason Onset Date Comments Refill Request 02/17/2024 Encounter Details Date Type Department Care Team (Late st Contact Info) Description 02/17/2024 MyC Refill [facility] [address] [place] [address] [place] [address] [place] [address] Refill Request Social History Tobacco Use Types Packs/Day Years Used Date Smoking Tobacco: Never Smokeless Tobacco: Never Alcohol Use Standard [...] encounter Miscellaneous Notes * Telephone Encounter - Olga Garcia RN - 02/18/2024 7:15 AM CDT Called patient and left voicemail to call back and ask to speak to any triage nurse. Pt was in the ER on 02/17/24. Has VV scheduled for 02/21/24. Dr. Mcclelland, Are you willing to refill this or wait until her appt? Olga Garcia RN documented in this encounter Plan of Treatment Upcoming Encounters Date Type Department Care Team (Late st Contact Info) Description 05/09/2024 10:00 AM CDT Office Visit [facility] [place] [address] [address] [place] [address] [address] [place] [address] documented as of this encounter Visit Diagnoses Diagnosis Acute post-operative pain Other acute postoperative pain 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 Rule Out COVID-19 02/17/2024 02/17/2024 02/17/2024 5:07 PM CDT Assessment Noted Time PHQ-9 Depression Total Score: 3 05/27/20 5:00 PM CDT documented as of this encounter Care Teams Substance Abuse Rn Relationship Specialty Start [place] [address] [place] [address] PCP - General Family Medicine 04/22/23 [place] [address] [place] [address] Assigned Pain Medication Provider 12/07/22 [place] [address] [place] [place] [address] Assigned PCP 01/23/23 [place] [address] [address] [address] [address] Assigned Musculoskeletal Provider 01/23/23 Gregorio Dalton PA-C [address] [address] Assigned Surgical Provider 05/22/23 Kingsley Garcia MD [address] [address] Assigned Heart and Vascular Provider 08/07/23 [place] [address] [place] [address] Family Medicine 09/10/23 Master Shea PA-C [address] [place] [address] Physician Solid Glass Rod Dowel Machine Operator Gastroenterology 09/10/23 Allyssa Justice MD [facility] [address] [place] [address] [address] Hematology & Oncology 12/10/23 Genaro Christian MD 6 [place] [address] Cardiovascular Disease 12/22/23 Master Shea PA-C [address] [place] [address] Assigned Gastroenterology Provider 12/23/23 Sienna Guillermo DO [address] [address] Physician Cardiovascular Disease 01/18/24 documented as of this encounter
--- OUTSIDE RECORDS SUMMARY | 2024-03-25 18:16 | XMS_ITS | Encounter Summary ---
Author Name Unknown Organization [place] Address [facility] [place] [address] Care Team Providers Care Plywood Matcher Name Role Phone Segundo Mcclelland MD Unavailable [phone] Segundo Mcclelland MD Unavailable [phone] Qamar Jackson MD Unavailable Segundo Mcclelland MD Primary Care Provider + Gregorio Dalton PA-C Unavailable [phone] Kingsley Garcia MD Unavailable + [phone] Segundo Mcclelland MD Unavailable [phone] Master Shea PA-C Unavailable Allyssa Justice MD Unavailable [phone] Genaro Christian MD Unavailable + [phone] Master Shea-Shirley Unavailable Sienna Guillermo DO Unavailable +[phone] Reason for Visit * Reason Comments Follow Up Encounter Details Date Type Department Care Team (Late st Contact Info) Description 02/21/2024 2:00 PM CDT Virtual Visit [facility] [address] [place] [address] [place] [address] [place] [address] Acute low back pain with radicular symptoms, duration less than 6 weeks (Primary Dx); Nausea and vomiting, unspecified vomiting type; POTS (postural orthostatic tachycardia syndrome) Social History Tobacco Use Types Packs/Day Years [...] AM CDT documented as of this encounter Progress Notes * Segundo Mcclelland MD - 02/21/2024 2:00 PM CDT Sandi is a 38 year old who is being evaluated via a billable video visit. How would you like to obtain your AVS? MyChart If the video visit is dropped, the invitation should be resent by: Other e-mail: Chaim Will anyone else be joining your video visit? No (M54.10) Acute low back pain with radicular symptoms, duration less than 6 weeks (primary encounterdiagnosis) Comment: Con't 2mg BID. Rx should cover until seen by [facility] Plan: HYDROmorphone (DILAUDID) 2 MG tablet (R11.2) Nausea and vomiting, unspecified vomiting type Comment: Plan: Is working with GI (G90.A) POTS (postural orthostatic tachycardia syndrome) Comment: Plan: Is working with cardiology Subjective Sandi is a 38 year old, presenting for the following health issues: Follow Up 02/21/2024 1:43 PM Additional Questions Roomed by kb Video Start Time: 2:06 PM History of Present Illness Reason for visit: Follow up Patient states she is having this follow up for her Port and other medical complex issues. Patient would like to discuss with Provider today. Did have COVID abd the that interfered with her getting for first IVF. 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 Will been at [facility] shortly, is waiting to hear back from them Notes that her L foot is numb with tingling to her knee. Is having intense low- back pain. Needs something for pain. Does follow with glo and had a lot of trouble with medications, eventually settled on gabapentin and lorazepam. Due to tendency to vomit her medication she isn't really using either. Pain issues is mostly due to repeated falls from syncope. Will use hydromorphone 2 mg (1/4 of an 8mg tablet as pharamcy has been out of 2mg) generally twice a day, but has been having more need with back injury. Still having persistent n/v. Has been seen by GI, has not had gastric emptying study yet. Last them2 months. Has not been able to to tolerate Reglan. Missed last appointment with cardiology due to influenza. Rescheduled for 03/23. Review of Systems Constitutional: Negative. Eyes: Negative for visual disturbance. Respiratory: Negative for shortness of breath. Cardiovascular: Negative for chest pain, palpitations and peripheral edema. Musculoskeletal: Positive for back pain. Neurological: Positive for numbness and paresthesias. Negative for headaches. Objective Vitals - Patient Reported Systolic (Patient Reported): (unable to take today) Diastolic (Patient Reported): (unable to take today) Weight (Patient Reported): 88.5 kg (195 lb) Height (Patient Reported): 167.6 cm (5' 6) BMI (Based on Pt Reported Ht/Wt): 31.47 SpO2 (Patient Reported): (unable to take today) Temperature (Patient Reported): (unable to take today) Pulse (Patient Reported): (unable to take today) Physical Exam GENERAL: alert and no distress EYES: Eyes grossly normal to inspection. No discharge or erythema, or obvious scleral/conjunctival abnormalities. RESP: No audible wheeze, cough, or visible cyanosis. SKIN: Visible skin clear. No significant rash, abnormal pigmentation or lesions. NEURO: Cranial nerves grossly intact. Mentation and speech appropriate for age. PSYCH: Appropriate affect, tone, and pace of words Video-Visit Details Type of service: Video Visit Video End Time:2:31 PM Originating Location (pt. Location): Distant Location (provider location): Off-site Platform used for Video Visit: [facility] Signed Electronically by: Segundo Mcclelland MD documented in this encounter Plan of Treatment Upcoming Encounters Date Type Department Care Team (Late st Contact Info) Description 05/09/2024 10:00 AM CDT Office Visit [facility] [address] [place] [address] [place] [address] [place], [place] [address] documented as of this encounter Visit Diagnoses Diagnosis Acute low back pain with radicular symptoms, duration less than 6 weeks- Primary Nausea and vomiting, unspecified vomiting type POTS (postural orthostatic tachycardia syndrome) Tachycardia, unspecified 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 Assessment Noted Time PHQ-9 Depression Total Score: 4 02/21/20 24 1:54 PM CDT documented as of this encounter Care Teams Plywood Matcher Relationship Specialty Start [place] [address] [place] [address] PCP - General Family Medicine 04/22/23 [place] [address] [place] [address] Assigned Pain Medication Provider 12/07/22 [place] [address] [place] [address] Assigned PCP 01/23/23 [place] [address] [place] [address] Assigned Musculoskeletal Provider 01/23/23 Gregorio Dalton PA-C [address] [place] [address] Assigned Surgical Provider 05/22/23 Kingsley Garcia MD [address] [place] [address] Assigned Heart and Vascular Provider 08/07/23 [place] [address] [place] [address] Family Medicine 09/10/23 Master Shea PA-C [address] [place] [address] Physician Filling And Stapling Machine Operator Gastroenterology 09/10/23 Allyssa Justice MD [facility] [address] [place] [address] Hematology & Oncology 12/10/23 Genaro Christian MD [address] [place] [address] Cardiovascular Disease 12/22/23 Master Shea PA-C [address] [place] [address] Assigned Gastroenterology Provider 12/23/23 Sienna Guillermo DO [address] [place] [address] Physician Cardiovascular Disease 01/18/24 documented as of this encounter
--- OUTSIDE RECORDS SUMMARY | 2024-03-25 18:16 | XMS_ITS | Encounter Summary ---
Author Name Unknown Organization [place] Address [facility] [place] [address] Care Team Providers Care Disease Intervention Specialist Name Role Phone Segundo Mcclelland MD Unavailable [phone] Segundo Mcclelland MD Unavailable [phone] Qamar Jackson MD Unavailable Segundo Mcclelland MD Primary Care Provider + Gregorio Dalton PA-C Unavailable [phone] Kingsley Garcia MD Unavailable + [phone] Segundo Mcclelland MD Unavailable [phone] Master Shea PA-C Unavailable Allyssa Justice MD Unavailable [phone] Genaro Christian MD Unavailable [phone] Master Shea-C Unavailable Sienna Guillermo DO Unavailable Reason for Visit * Reason Comments Other Entered automaticall y based on patient selection in [employer] Encounter Details Date Type Department Care Team (Late st Contact Info) Description 02/18/2024 2:05 AM CDT E-Visit [facility] [address] [place] [address] [place] [address] [place] [address] Other (Entered automatically based on ngozi... Social [...] encounter Miscellaneous Notes * Telephone Encounter - Jr Tovar RN - 02/18/2024 2:[address] Mcclelland, Pt called. She wants to make sure that you received her message to the E-visit Jr Tovar RN on 02/18/2024 at 2:36 PM * Telephone Encounter - Segundo Mcclelland MD - 02/18/2024 2:17 PM CDT Provider E-Visit time total (minutes): [id number]: documented in this encounter Plan of Treatment Upcoming Encounters Date Type Department Care Team (Late st Contact Info) Description 05/09/2024 10:00 AM CDT Office Visit [facility] [address] [place] [address] [place] [address] [place] [address] documented as of this encounter Visit Diagnoses Diagnosis Pleuritis- Primary Pleurisy without mention of effusion or current tuberculosis Pleuritic chest pain Painful respiration 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 Assessment Noted Time PHQ-9 Depression Total Score: 3 05/27/20 5:00 PM CDT documented as of this encounter Care Teams Disease Intervention Specialist Relationship Specialty Start [place] [address] [address] [address] PCP - General Family Medicine 04/22/23 [place] [address] [address] [address] Assigned Pain Medication Provider 12/07/22 [place] [address] [address] [address] Assigned PCP 01/23/23 [place] [address] [place] [address] [place] [address] Assigned Musculoskeletal Provider 01/23/23 Gregorio Dalton PA-C [address] [place] [address] Assigned Surgical Provider 05/22/23 Kinglsey Garcia MD [address] [place] [address] Assigned Heart and Vascular Provider 08/07/23 [place] [address] [address] [address] Family Medicine 09/10/23 Master Shea PA-C [address] [place] [place] [address] Physician Shake Cutter Gastroenterology 09/10/23 Allyssa Justice MD [facility] [address] [place] [place] [address] Hematology & Oncology 12/10/23 Genaro Christian MD [address] [place] [address] Cardiovascular Disease 12/22/23 Master Shea PA-C [address] [place] [address] Assigned Gastroenterology Provider 12/23/23 Sienna Guillermo DO [address] [place] [address] Physician Cardiovascular Disease 01/18/24 documented as of this encounter
--- OUTSIDE RECORDS SUMMARY | 2024-03-25 18:16 | XMS_ITS | Encounter Summary ---
Author Name Unknown Organization [facility] Address [address] [facility] [place] [address] Care Team Providers Care Casting Machine Adjuster Name Role Phone Segundo Mcclelland MD Unavailable [phone] Segundo Mcclelland MD Unavailable [phone] Qamar Jackson MD Unavailable Segundo Mcclelland MD Primary Care Provider + Gregorio Dalton PA-C Unavailable [phone] Kingsley Garcia MD Unavailable [phone] Segundo Mcclelland MD Unavailable Master Shea PA-C Unavailable Allyssa Justice MD Unavailable [phone] Genaro Christian MD Unavailable [phone] Master Shea-Shirley Unavailable Sienna Guillermo DO Unavailable [phone] Encounter Details Date Type Department Care Team (Late st Contact Info) Description 02/08/2024 [facility] [address] [place] [address] [place] [address] [place] [address] Social History Tobacco Use Types [...] Telephone Encounter - Sienna Wilder RN - 02/08/2024 12:45 PM CDT Pt calls. She sent an e-visit - the prescription for pain medicine - dilaudid was sent in yesterday. Yesterday the pharmacy didn't have any 4 mg tablets. Now they have some, but it is brand, but insurance won't cover brand. She said they have 8 mg tabs that are scored and then she could take 1/4. So that would be 2 mg. She is wondering if that could be sent in because she is having pain and does not want to end up in ER. The pain is by her port. When she was in the ER they said she had some swelling pushing on the nerve. Tried to michelle up - the system does not allow an 8 mg to be divided into 4 to equal 2 mg? Will forward to Dr. Mcclelland. documented in this encounter Plan of Treatment Upcoming Encounters Date Type Department Care Team (Late st Contact Info) Description 05/09/2024 10:00 AM CDT Office Visit [facility] [address] [place] [phone] [place] [address] [address] [address] documented as of this encounter Visit Diagnoses Diagnosis Pleuritic chest pain Painful respiration 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 Rule Out COVID-19 02/17/2024 02/17/2024 02/17/2024 5:07 PM CDT Assessment Noted Time PHQ-9 Depression Total Score: 3 05/27/20 5:00 PM CDT documented as of this encounter Care Teams Casting Machine Adjuster Relationship Specialty Start [place] [address] [address] [address] PCP - General Family Medicine 04/22/23 [place] [address] [address] [address] Assigned Pain Medication Provider 12/07/22 [place] [address] [address] [address] Assigned PCP 01/23/23 [place] [address] [place] [address] Assigned Musculoskeletal Provider 01/23/23 Gregorio Dalton PA-C [address] [place] [address] Assigned Surgical Provider 05/22/23 Kingsley Garcia MD [address] [place] [address] Assigned Heart and Vascular Provider 08/07/23 [place] [address] [facility] [place] [address] Family Medicine 09/10/23 Master Shea PA-C [address] [facility] [place] [address] Physician Foundation Relations Director Gastroenterology 09/10/23 Allyssa Justice MD [facility] [address] [place] [address] Hematology & Oncology 12/10/23 Genaro Chrisitan MD [address] [place] [address] Cardiovascular Disease 12/22/23 Master Shea PA-C [address] [place] [address] Assigned Gastroenterology Provider 12/23/23 Sienna Guillermo DO [address] [place] [address] Physician Cardiovascular Disease 01/18/24 documented as of this encounter
--- OUTSIDE RECORDS SUMMARY | 2024-03-25 18:16 | XMS_ITS | Encounter Summary ---
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 Name Role Phone Segundo Mcclelland MD Unavailable [phone] Segundo Mcclelland MD Unavailable [phone] Qamar Jackson MD Unavailable Segundo Mcclelland MD Primary Care Provider + Gregorio Dalton PA-C Unavailable [phone] Kingsley Garcia MD Unavailable + [phone] Segundo Mcclelland MD Unavailable [phone] Master Shea PA-C Unavailable Allyssa Justice MD Unavailable [phone] Genaro Christian MD Unavailable [phone] Master Shea-Shirley Unavailable Sienna Guillermo DO Unavailable Reason for Visit * Reason Comments Back Pain Encounter Details Date Type Department Care Team (Late st Contact Info) Description 02/26/2024 3:38 AM CDT - 02/26/2024 8:17 AM CDT [facility] Emergency Dept [address] [place] [address] Kingsley Kimble MD [facility] [address] [address] Ozzie Smith MD [facility] [address] [place], [place] [id number] Acute midline low back pain with left-sided sciatica Discharge Disposition: Home or Self Care Social [...] Sign Reading Time Taken Comments Blood Pressure 119/70 02/26/2024 8:13 AM CDT Pulse 115 02/26/2024 8:13 AM CDT Temperature 36.9 ??C (98.5 ??F) 02/26/2024 3:37 AM CD T Respiratory Rate 18 02/26/2024 8:13 AM CDT Oxygen Saturation 97% 02/26/2024 8:13 AM CDT Inhaled Oxygen Concentration - - Weight - - Height - - Body Mass Index - - documented in this encounter Discharge Instructions * Discharge Instructions* Ozzie Smith MD - 02/26/2024 8:01 AM CDT No signs of an emergency today or need for emergency surgery. You should follow-up with Dr. Mcclelland and [facility] to discuss pain management and next steps regarding your back pain. Return to emergency department for incontinence of urine/stool, fever > 100.4, or for any other concerns. Discharge Instructions Chronic Pain Management You were seen today for an issue regarding chronic or recurrent pain. You may have a condition thatgives you pain every day, or a condition that causes pain that keeps coming back, or several conditions involving pain. We will evaluate you for your symptoms to ensure that there is no medical emergency. This evaluation usually takes the form of a good medical history (interview) and physical examination. Rarely, imaging (x-rays or CAT scans) and lab work (blood tests) may be necessary in addition to the history and examination. This approach is similar to our approach to other chronic/recurrent diseases where weevaluate for emergencies but leave much of the management of the problem to the regular provider/clinic. We will offer suggestions to manage your pain but we do not generally utilize opiate pain medications for recurrent or chronic pain. There is an ongoing public health crisis with respect to opiates and we are aware of the risks to our patients from opiate pain medications. Opiates are strong pain relievers but they carry significant risks including sedation, confusion, constipation, falls, as well as dependence, addiction, and overdose-related deaths. These medications represent a significant risk to your health and are therefore reserved for the management of select conditions associated with acute, severe pain. For many conditions, the risks of opiate treatment simply outweigh the benefits. Additionally, for patients with chronic/recurrent pain or who frequently use opiates, management of pain needs to be performed by a single physician/provider who can follow their care consistently.As a result, we generally do not provide refills of opiates or treat chronic pain with injected opiates in the Emergency Department. It is with your best interests in mind that we adhere to these wide ly accepted best practices. As with other chronic diseases like diabetes and asthma, management of chronic pain is best performed by regular visits to the same provider. In the case of chronic pain, this may be your primary physician/provider, your neurologist or other specialist, or with a chronic pain clinic/provider. If you have concerns about our policy, please discuss them with your primary care provider or pain specialist, who can contact us if necessary for further information or clarification. If you were given a prescription for medicine here today, be sure to read all of the information (including the package insert) that comes with your prescription. This will include important information about the medicine, its side effects, and any warnings that you need to know about. The pharmacist who fills the prescription can provide more information and answer questions you may have about the medicine. If you have questions or concerns that the pharmacist cannot address, please call or return to the Emergency Department. Remember that you can always come back to the Emergency Department if you develop any new symptoms or if there is anything that worries you. Discharge Instructions Back Pain You were seen today for back pain. Back pain can have many causes, but most will get better withoutsurgery or other specific treatment. Sometimes there is a herniated (???slipped?? ) disc. We do notusually do MRI scans to look for these right away, since most herniated discs will get better on their own with time. Today, we did not find any evidence that your back pain was caused by a serious condition. However, sometimes symptoms develop over time and cannot be found during an emergency visit, so it is very important that you follow up with your primary provider. Generally, every Emergency Department visit should have a follow-up clinic visit with either a primary or a specialty clinic/provider. Please follow-up as instructed by your emergency provider today. Return to the Emergency Department if: You develop a fever with your back pain. You have weakness or change in sensation in one or both legs. You lose control of your bowels or bladder, or cannot empty your bladder (cannot pee). Your pain gets much worse. Follow-up with your provider: Unless your pain has completely gone away, please make an appointment with your provider within oneweek. Most of the routine care for back pain is available in a clinic and not the Emergency Department. You may need further management of your back pain, such as more pain medication, imaging such as an X-ray or MRI, or physical therapy. What can I do to help myself? Remain Active -- People are often afraid that they will hurt their back further or delay recovery by remaining active, but this is one of the best things you can do for your back. In fact, staying inbed for a long time to rest is not recommended. Studies have shown that people with low back pain recover faster when they remain active. Movement helps to bring blood flow to the muscles and relievemuscle spasms as well as preventing loss of muscle strength. Heat -- Using a heating pad can help with low back pain during the first few weeks. Do not sleep with a heating pad, as you can be burned. Pain medications - You may take a pain medication such as Tylenol?? (acetaminophen), Advil??, Motrin?? (ibuprofen) or Aleve?? (naproxen). If you were given a prescription for medicine here today, be sure to read all of the information (including the package insert) that comes with your prescription. This will include important information about the medicine, its side effects, and any warnings that you need to know about. The pharmacist who fills the prescription can provide more information and answer questions you may have about the medicine. If you have questions or concerns that the pharmacist cannot address, please call or return to the Emergency Department. Remember that you can always come back to the Emergency Department if you are not able to see your regular provider in the amount of time listed above, if you get any new symptoms, or if there is anything that worries you. documented in this encounter Medications at Time [...] anxiety naloxone (NARCAN) 4 MG/0.1ML nasal spray [place] 4 mg into one nostril alternating nostrils [...] as needed for severe pain 10 tablet 02/21/2024 02/28/2024 loperamide (IMODIUM A-D) 2 MG tablet Take 1 tablet (2 mg) by mouth 4 times daily as needed for diarrhea 30 tablet 02/17/2024 03/06/2024 methylPREDNISolone (MEDROL DOSEPAK) 4 MG tablet therapy packIndications:Pleuri tis Follow Package Directions 21 tablet 02/24/2024 03/01/2024 pantoprazole (PROTONIX) 40 MG EC tabletIndications:Jennifer roesophageal reflux disease with esophagitis, unspecified whether hemorrhage Take 1 tablet (40 mg) by mouth 2 times daily (before meals) 180 tablet 1 07/23/2023 03/06/2024 phenazopyridine (PYRIDIUM) 100 MG tablet Take 1 tablet (100 mg) by mouth 3 times daily as needed for urinary tract discomfort 9 tablet 01/08/2024 03/01/2024 documented as of this encounter ED Notes * Brisa Whitehead RN - 02/26/2024 8:17 AM CDT Pt ambulatory to wheelchair and wheeled out to [facility]. * Brisa Whitehead RN - 02/26/2024 8:16 AM CDT Pt making multiple attempts to delay discharge. Pt provided with patient relations card upon request. * Stevenson Wilkerson RN - 02/26/2024 3:35 AM CDT Patient states that she was lifting a couch on Wednesday and heard a pop' in her back and she began having back pain. Patient was seen by [facility] and had imaging done. [facility] called and told her she needed surgery on her back but didn't tell her why. Patient missed the follow up with the surgeon. Triage Assessment (Adult) Row Name 02/26/24 0335 Triage Assessment Airway WDL WDL Respiratory WDL Respiratory WDL WDL Skin Circulation/Temperature WDL Skin Circulation/Temperature WDL WDL Cardiac WDL Cardiac WDL WDL Peripheral/Neurovascular WDL Peripheral Neurovascular WDL WDL Cognitive/Neuro/Behavioral WDL Cognitive/Neuro/Behavioral WDL WDL * Kingsley Kimble MD - 02/26/2024 3:30 AM CDT History Chief Complaint: Back Pain HPI Sandi Lopez is a 38 year old female with complex past medical history including POTS, borderline personality disorder, drug-seeking behavior, major depression, PTSD, chronic pain and psychogenic nonepileptic seizures who presents emergency department with back pain. Patient reportedly was moving a couch on Wednesday and heard a pop in her back. Since then has had significant pain. Reportedlywas seen at [facility] urgent care on Wednesday and had MRIs performed. She was supposed to follow-up with [facility] outpatient on Wednesday which was yesterday for surgery consultation. However she reportedly went to the wrong [facility] office in [place] rather than [place]. Therefore did not attend her appointment. She c omes in the emergency department today complaining of ongoing pain. She notes some numbness along the inside of her left thigh and along the outside of her left ankle and the bottom of her foot. She notes that she has had back surgery before in the past. Denies any bowel or bladder incontinence. However she does note that she has had some diarrhea recently. Medications: acetaminophen (TYLENOL) 325 MG tablet apixaban ANTICOAGULANT (ELIQUIS) 5 MG tablet childrens multivitamin w/iron (FLINTSTONES COMPLETE) chewable tablet Cholecalciferol (VITAMIN D3) 50 MCG (1999) CAPS cyclobenzaprine (FLEXERIL) 10 MG tablet diphenhydrAMINE (BENADRYL) 25 MG capsule EPINEPHrine (ANY BX GENERIC EQUIV) 0.3 MG/0.3ML injection 2-pack folic acid (FOLVITE) 1 MG tablet gabapentin (NEURONTIN) 800 MG tablet HYDROmorphone (DILAUDID) 2 MG tablet loperamide (IMODIUM A-D) 2 MG tablet LORazepam (ATIVAN) 1 MG tablet methylPREDNISolone (MEDROL DOSEPAK) 4 MG tablet therapy pack naloxone (NARCAN) 4 MG/0.1ML nasal spray pantoprazole (PROTONIX) 40 MG EC tablet phenazopyridine (PYRIDIUM) 100 MG tablet zolpidem (AMBIEN) 10 MG tablet Past [...] Procedure: ESOPHAGOGASTRODUODENOSCOPY; Surgeon: Meg Lee MD; [facility]; Service: ESOPHAGOSCOPY, GASTROSCOPY, DUODENOSCOPY (EGD), COMBINED N/A 02/13/2016 Procedure: ESOPHAGOGASTRODUODENOSCOPY; Surgeon: Meg Lee MD; Location: [facility] OR; Service: ESOPHAGOSCOPY, GASTROSCOPY, DUODENOSCOPY (EGD), COMBINED [...] CONTROLLED EPITAXIS; Surgeon: Declan Mata MD; Location: [facility]; Service: OOPHORECTOMY Right Talar fracture lt foot surgery 10/1998 TONSILLECTOMY & ADENOIDECTOMY 1995 TRANSESOPHAGEAL ECHOCARDIOGRAM INTRAOPERATIVE N/A 09/17/2021 Procedure: ECHOCARDIOGRAM, TRANSESOPHAGEAL, INTRAOPERATIVE; Surgeon: GENERIC ANESTHESIA PROVIDER; Location: [facility] TUBAL LIGATION Physical Exam Patient Vitals for the past 24 hrs: BP Temp Temp src Pulse Resp SpO2 02/26/24 0630 -- -- -- -- -- 94 % 02/26/24 0600 (!) 124/93 -- -- (!) 121 -- 98 % 02/26/24 0421 119/88 -- -- -- -- 97 % 02/26/24 0337 (!) 143/93 98.5 ??F (36.9 ??C) Temporal (!) 140 26 100 % 02/26/24 0334 -- 98.5 ??F (36.9 ??C) Temporal (!) 140 24 99 % Physical Exam General: Patient is awake, alert and interactive when I enter the room. Appears uncomfortable . Head: The scalp, face, and head appear normal. Atraumatic. Neck: Normal range of motion. No anterior cervical lymphadenopathy noted CV: Regular rate. S1/S2. No murmurs. Resp: Lungs are clear without wheezes or rales. No respiratory distress. MS: Normal tone. Joints grossly normal without effusions. No asymmetric leg swelling, calf or thightenderness. Subjective numbness to the inside of the left thigh, lateral left ankle and bottom of the left foot. They are tender in the lower lumbar spine area. There is no significant paraspinal muscle spasm. There is no redness or edema about the back. No midline spinal pain and no stepoffs. Detailed strength exam is performed in lower extremities, there is symmetrical strength in all myotomes tested both proximally and distally. Skin: No rash or lesions noted. Normal capillary refill noted Neuro: Speech is normal and fluent. Face is symmetric. Moving all extremities. Psych: Normal affect. Appropriate interactions. Emergency Department Course Emergency Department Course & Assessments: Interventions: Medications HYDROmorphone (DILAUDID) tablet 2 mg ( Oral Canceled Entry 02/26/24431) cyclobenzaprine (FLEXERIL) tablet 10 mg (10 mg Oral $Given 02/26/24431) gabapentin (NEURONTIN) capsule 300 mg (300 mg Oral $Given 02/26/24431) Consultations/Discussion of Management or Tests: Called on-call orthopedic surgery but they were unable to access [facility] urgent care MRI imaging Disposition: Signed out to oncoming physician Impression & Plan Medical Decision Making: Patient is a 38-year-old female who is well-known to our emergency department who presents emergency department with new onset lower back pain and left-sided radicular symptoms. Reportedly was seen at [facility] urgent care on Wednesday and had MRI results. However I am unable to access those results at thistime. I called on- call [facility] orthopedic surgeon who was not able to access those images at this time.We will call during daytime hours to see if we can access these images so we can assess need for possible follow-up versus surgery versus discharge with close follow-up. At this point, I do not feel that she requires inpatient hospitalization or any further imaging in our department currently. We will reassess after pain management. Diagnosis: ICD-10-CM 1. Acute midline low back pain with left-sided sciatica M54.42 MD Shyanne Castillo Christopher Joseph, MD 02/26/24 0645 * Ozzie Smith MD - 02/26/2024 3:30 AM CDT Pt signed out to me by Dr. Kimble pending discussion with [facility] regarding MRI results. I contacted Dr. Stevenson Shelton, who last performed surgery on patient in 2019, who patient states she missed an appointment with yesterday. He reviewed [facility] medical records and states that patient has not been seen by them in several years and that there is no MRI in their system. Based on symptoms, he recommended that she be seen by themin clinic next week. He agrees with no emergent need for MRI of the L-spine. Patient requesting pain medication repeatedly during my time with patient. She received one dose oforal dilaudid upon arrival. She showed me a screenshot of an MRI report without the date that showed a left- sided disc herniation that would certainly explain her symptoms. She stated she was unable to show me the full report. Certainly, nothing on the provided MRI report would suggest need for emergent surgery and she can safely be followed up in clinic by spine surgery next week. I discussed this with her at bedside. She continued to request more pain medication which I declined in accordance with her care plan, in addition to our chronic pain policy. She was discharged in stable condition. Discharge vitals showed significant improvement compared to presentation. She has known to have sinus tachycardia at baseline. Ozzie Smith MD 02/26/24 0905 documented in this encounter Plan of Treatment Upcoming Encounters Date Type Department Care Team (Late st Contact Info) Description 05/09/2024 10:00 AM CDT Office Visit [facility] [address] [place] [address] [place] [address] [place] [address] documented as of this encounter Visit Diagnoses Diagnosis Acute midline low back pain with left-sided sciatica documented in this encounter Administered Medications Inactive Administered Medications - up to 3 most recent administrations Medication Order MAR Action Action Date Dose Rate Site acetaminophen (TYLENOL) tablet 1,000 mg 1,000 mg, Oral, ONCE, On 02/26/24 at 0720, For 1 dose, Maximum acetaminophen dose from all sources = 75 mg/kg/day not to exceed 4 gram $Given 02/26/2024 7:36 AM CDT 1,000 mg apixaban ANTICOAGULANT (ELIQUIS) tablet 5 mg 5 mg, Oral, ONCE, On 02/26/24 at 0805, For 1 dose, Indications: DVT-PE Treatment $Given 02/26/2024 8:12 AM CDT 5 mg cyclobenzaprine (FLEXERIL) tablet 10 mg 10 mg, Oral, ONCE, On 02/26/24 at 0425, For 1 dose $Given 02/26/2024 4:32 AM CDT 10 mg gabapentin (NEURONTIN) capsule 300 mg 300 mg, Oral, ONCE, On 02/26/24 at 0425, For 1 dose $Given 02/26/2024 4:32 AM CDT 300 mg HYDROmorphone (DILAUDID) tablet 2 mg 2 mg, Oral, EVERY 2 HOURS PRN, severe pain, Starting on 02/26/24 at 0420 $Given 02/26/2024 4:30 AM CDT 2 mg documented in this encounter Active and Recently Administered Medications Times are shown in CDT. Scheduled Medication Order 02/24/2024 02/25/2024 02/26/2024 acetaminophen (TYLENOL) tablet 1,000 mg (COMPLETED) 1,000 mg, Oral, ONCE, On 02/26/24 at 0720, For 1 dose, Maximum acetaminophen dose from all sources = 75 mg/kg/day not to exceed 4 gram 0736 ($Given - Provi rosita: Brisa Whitehead RN) apixaban ANTICOAGULANT (ELIQUIS) tablet 5 mg (COMPLETED) 5 mg, Oral, ONCE, On 02/26/24 at 0805, For 1 dose, Indications: DVT-PE Treatment 0812 ($Given - Provi rosita: Brisa Whitehead RN) cyclobenzaprine (FLEXERIL) tablet 10 mg (COMPLETED) 10 mg, Oral, ONCE, On 02/26/24 at 0425, For 1 dose 0432 ($Given - Provi rosita: Nerissa Montalvo RN) gabapentin (NEURONTIN) capsule 300 mg (COMPLETED) 300 mg, Oral, ONCE, On 02/26/24 at 0425, For 1 dose 0432 ($Given - Provi rosita: Nerissa Montalvo RN) PRN Medication Order 02/24/2024 02/25/2024 02/26/2024 HYDROmorphone (DILAUDID) tablet 2 mg (CANCELED) 2 mg, Oral, EVERY 2 HOURS PRN, severe pain, Starting on 02/26/24 at 0420 0430 ($Given - Provi rosita: Nerissa Montalvo RN)0432 (Canceled Entry - Provider: Nerissa Montalvo RN) 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 Assessment Noted Time PHQ-9 Depression Total Score: 4 02/21/20 1:54 PM CDT documented as of this encounter Care Teams 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 Relationship Specialty Start [place] [address] [address] [address] PCP - General Family Medicine 04/22/23 [place] [address] [address] [address] Assigned Pain Medication Provider 12/07/22 [place] [address] [address] [address] Assigned PCP 01/23/23 [place] [address] [address] [place] [address] Assigned Musculoskeletal Provider 01/23/23 Gregorio Dalton PA-C [address] [place] [address] Assigned Surgical Provider 05/22/23 Kingsley Garcia MD [address] [place] [address] Assigned Heart and Vascular Provider 08/07/23 [place] [address] [place] [address] Family Medicine 09/10/23 Master Shea PA-C [address] [place] [address] Physician Planer Hand Gastroenterology 09/10/23 Allyssa Justice MD [facility] [address] [place] [address] Hematology & Oncology 12/10/23 Genaro Christian MD [address] [place] [address] Cardiovascular Disease 12/22/23 Master Shea PA-C [address] [facility] [place] [address] Assigned Gastroenterology Provider 12/23/23 Sienna Guillermo DO [address] [place] [address] Physician Cardiovascular Disease 01/18/24 documented as of this encounter
--- OUTSIDE RECORDS SUMMARY | 2024-03-25 18:16 | XMS_ITS | Encounter Summary ---
Author Name Unknown Organization [facility] Address [address] [place] [id number] Care Team Providers Care Restaurant Attendant Name Role Phone Segundo Mcclelland MD Unavailable [phone] Segundo Mcclelland MD Unavailable [phone] Qamar Jackson MD Unavailable Segundo Mcclelland MD Primary Care Provider + Gregorio Dalton PA-C Unavailable [phone] Kingsley Garcia MD Unavailable [phone] Segundo Mcclelland MD Unavailable [phone] Master Shea PA-C Unavailable Allyssa Justice MD Unavailable [phone] Genaro Christian MD Unavailable [phone] Master Shea-Shirley Unavailable Sienna Guillermo DO Unavailable [phone] Reason for Visit * Reason Comments Chest Pain Encounter Details Date Type Department Care Team (Late st Contact Info) Description 02/17/2024 12:57 AM CDT - 02/17/2024 5:36 AM CDT [facility] Emergency Dept [address] [place] [address] Kingsley Kimble MD [facility] [address] [place] [address] Chest pain, unspecified type Discharge Disposition: Home or Self Care Social [...] Sign Reading Time Taken Comments Blood Pressure 166/139 02/17/2024 4:02 AM CDT Pulse 115 02/17/2024 1:32 AM CDT Temperature 36.2 ??C (97.1 ??F) 02/17/2024 12:53 AM C DT Respiratory Rate 26 02/17/2024 12:53 AM CDT Oxygen Saturation - - Inhaled Oxygen Concentration - - Weight - - Height - - Body Mass Index - - documented in this encounter Discharge Instructions * Attachments The following attachments cannot be sent through Care Everywhere. * Pleurisy (Ku[place]i) documented in this encounter Medications at Time [...] anxiety naloxone (NARCAN) 4 MG/0.1ML nasal spray [place] 4 mg into one nostril alternating nostrils once as needed for opioid reversal 06/28/2023 zolpidem (AMBIEN) 10 MG tablet Take 10 mg by mouth At Bedtime 12/17/2022 loperamide (IMODIUM A-D) 2 MG tablet Take 1 tablet (2 mg) by mouth 4 times daily as needed for diarrhea 30 tablet 02/17/2024 03/06/2024 apixaban ANTICOAGULANT (ELIQUIS) 5 MG tabletIndications:Mult iple subsegmental pulmonary emboli without acute cor pulmonale (H) Take 1 tablet (5 mg) by mouth 2 times daily 180 tablet 1 01/06/2024 03/13/2024 HYDROmorphone (DILAUDID) 8 MG tabletIndications:Pleu ritic chest pain Take 0.5 tablets (4 mg) by mouth every 4 hours as needed for severe pain 2 tablet 02/11/2024 02/18/2024 pantoprazole (PROTONIX) 40 MG EC tabletIndications:Jennifer roesophageal [...] as of this encounter ED Notes * Princess Parikh RN - 02/17/2024 3:20 AM CDT Pt reports she had an unwitnessed fall when coming back from bathroom. No new concerns. Notified MD. * Stevenson Wilkerson RN - 02/17/2024 12:54 AM CDT Patient was diagnosed with COVID last week and today began having substernal chest pain that radiates to her neck. Pain increases with inspiration. Patient also had a syncopal episode today falling and hitting her head on the floor. Also complaining of nausea. Triage Assessment (Adult) Row Name 02/17/24 0054 Triage Assessment Airway WDL WDL Respiratory WDL Respiratory WDL WDL Skin Circulation/Temperature WDL Skin Circulation/Temperature WDL WDL Cardiac WDL Cardiac WDL chest pain Chest Pain Assessment Chest Pain Location midsternal Chest Pain Radiation neck Character sharp * Kingsley Kimble MD - 02/17/2024 12:49 AM CDT History Chief Complaint: Chest Pain The history is provided by the patient. Sandi Lopez is a 38 year old female with history of POTS, hypertension, and borderline personality disorder presenting for evaluation of chest pain. Sandi explains that she tested positive for COVID one week ago with two at- home tests and has been experiencing myalgias and green diarrhea since. She reports chest pain radiating into her back onset at 1900 last night that is exacerbated with inhalation and notes a presyncopal event in the bathroom prior to ED arrival when she felt like she had to defecate. Independent Historian: None - Patient Only Review of External Notes: I reviewed patient's care coordination notes and ED treatment plan Medications: Eliquis Benadryl Epinephrine Neurontin Ativan Protonix Pyridium Mark Dunn Klonopin Micronor Past Medical History: Anemia Atrial flutter Borderline personality disorder Depressive disorder Drug-seeking behavior Dysthymic behavior Eating disorder GERD Gastroparesis Hypertension Intermittent asthma Kidney stone Kathleen-Mustafa tear Mesenteric lymphadenitis Mild persistent asthma Opioid type dependence, continuous POTS Psychogenic nonepileptic seizure PTSD PE Gastric ulcer Past Surgical History: Adenoidectomy Ankle surgery Appendectomy [...] hrs: BP Temp Temp src Pulse Resp 02/17/24 0402 (!) 166/139 -- -- -- -- 02/17/24 0132 -- -- -- 115 -- 02/17/24 0053 (!) 151/117 97.1 ??F (36.2 ??C) Temporal (!) 137 26 Physical Exam General: Patient is awake, alert and interactive Head: The scalp, face, and head appear normal Eyes: The pupils are equal, round, and reactive to light. Conjunctivae and sclerae are normal Neck: Normal range of motion. CV: Tachycardic but regular. Peripheral pulses including radial pulses are symmetric. Resp: Lungs are clear without wheezes or rales. No respiratory distress. GI: Abdomen is soft, no rigidity, guarding, or rebound. No distension. No tenderness to palpation in any quadrant. MS: Mild chest wall tenderness to palpation. No asymmetric leg swelling, calf or thigh tenderness. Skin: No rash or lesions noted. Normal capillary refill noted Neuro: Speech is normal and fluent. Face is symmetric. Moving all extremities. Psych: Normal affect. Appropriate interactions. Emergency Department Course ECG ECG taken at 0104, ECG read at 0117 Sinus tachycardia Low voltage QRS Cannot rule out Anterior infarct, age undetermined Abnormal ECG Rate 122 bpm. AL interval 158 ms. QRS duration 68 ms. QT/QTc 306/436 ms. P-R-T axes 73 -9 41. Imaging: XR Shoulder Right G/E 3 Views Final Result IMPRESSION: No visible fracture or dislocation. XR Hand Port Left G/E 3 Views Final Result IMPRESSION: No visible fracture or dislocation. XR Chest 2 Views Final Result IMPRESSION: Normal heart size. Right chest port catheter tip overlies the low SVC. Lungs are clear.No visible pneumothorax or pleural effusion. Laboratory: Labs Ordered and Resulted from Time of ED Arrival to Time of ED Departure BASIC METABOLIC PANEL - Abnormal Result Value Sodium 135 Potassium 3.6 Chloride 101 Carbon Dioxide (CO2) 21 (*) Anion Gap 13 Urea Nitrogen 5.8 (*) Creatinine 0.60 GFR Estimate >90 Calcium 8.5 (*) Glucose 111 (*) CBC WITH PLATELETS AND DIFFERENTIAL - Abnormal WBC Count 11.5 (*) RBC Count 4.23 Hemoglobin 12.1 Hematocrit 35.9 MCV 85 MCH 28.6 MCHC 33.7 RDW 18.8 (*) Platelet Count 442 % Neutrophils 60 % Lymphocytes 32 % Monocytes 6 % Eosinophils 1 % Basophils 0 % Immature Granulocytes 1 NRBCs per 100 WBC 0 Absolute Neutrophils 6.9 Absolute Lymphocytes 3.7 Absolute Monocytes 0.6 Absolute Eosinophils 0.1 Absolute Basophils 0.0 Absolute Immature Granulocytes 0.1 Absolute NRBCs 0.0 TROPONIN T, HIGH SENSITIVITY - Normal Troponin T, High Sensitivity <6 Emergency Department Course & Assessments: Interventions: Medications HYDROmorphone (DILAUDID) tablet 2 mg (2 mg Oral $Given 02/17/24 7351) sodium chloride (PF) 0.9% PF flush 10-20 [...] range) heparin 100 unit/mL injection 5-10 mL (5 mLs Intracatheter $Given 02/17/24 0357) acetaminophen (TYLENOL) tablet 650 mg (650 mg Oral $Given 02/17/24 0501) sodium chloride 0.9% BOLUS 1,000 mL (0 mLs Intravenous Stopped 02/17/24 0357) loperamide (IMODIUM) capsule 4 mg (4 mg Oral $Given 02/17/24 0135) Assessments: 0118 I obtained history and examined the patient as noted above. 0226 I rechecked the patient. 0259 I discussed findings and discharge with the patient. All questions answered. 0406 I rechecked the patient. Independent Interpretation (X-rays, CTs, rhythm strip): I reviewed the patient's chest X-ray and note no pneumonia or pneumothorax. I reviewed the patient's left hand X-ray and note no fracture or dislocation. Consultations/Discussion of Management or Tests: None Disposition: The patient was discharged. Impression & Plan Medical Decision Making: This is a 38-year-old woman who is well-known to this emergency department with complex past medical history who presents to the emergency department with ongoing chest pain and diarrhea in the setting of presumed COVID infection. Patient reports she took three at home COVID tests and 2 came back positive. She presumed that she that she was positive for COVID. Since then she has been having some worsening chest pain and ongoing diarrhea. On initial evaluation here she is tachycardic however sheis typically tachycardic at baseline. She mildly hypertensive but afebrile. EKG was obtained which shows sinus tachycardia but no evidence of ischemia nor dysrhythmia. Troponin was obtained which was undetectably low. Very low suspicion for acute coronary syndrome, significant myocarditis or pericarditis. Patient is anticoagulated on Eliquis. Low suspicion for PE. Chest x-ray was obtained which shows no signs of pneumonia, pneumothorax, wide mediastinum, pleural effusion or pulmonary edema. Patient reports while at home she had a near syncopal episode and hit her hand against a cabinet while she was falling. X-ray was obtained which shows no signs of fracture or dislocation. Patient received IV fluids for her diarrhea and had some improvement of her tachycardia. Blood work shows no significant electrolyte abnormality. Patient was made ready for discharge and I discussed my findings and plan for outpatient management. Patient had a unwitnessed fall in her room where she presumably hit her right shoulder. She complained of some right shoulder pain after the incident. X-rays were obtained and were negative for any fracture or dislocation. Recommended close follow-up with primary careteam and return to the emergency department as needed. Diagnosis: ICD-10-CM 1. Chest pain, unspecified type R07.9 Discharge Medications: Discharge Medication List as of 02/17/2024 4:03 AM START taking these medications Details loperamide (IMODIUM A-D) 2 MG tablet Take 1 tablet (2 mg) by mouth 4 times daily as needed for diarrhea, Disp-30 tablet, R-0, Local Print Scribe Disclosure: Willi Sanchez, nora serving as a scribe at 1:11 AM on 02/17/2024 to document services personally performed by Kingsley Kimble MD based on my observations and the provider's statements to me. 02/17/2024 Kingsley Kimble MD Battista, Christopher Joseph, MD 02/17/24 0627 documented in this encounter Plan of Treatment Upcoming Encounters Date Type Department Care Team (Late st Contact Info) Description 05/09/2024 10:00 AM CDT Office Visit [facility] [id number] [place] [phone] [place] [address] [place] [address] documented as of this encounter Procedures Procedure Name Priority Date/Time Associated Diagnosis Comments EKG 12-LEAD, TRACING ONLY STAT 02/17/2024 2:24 PM CDT XR SHOULDER RIGHT G/E 3 VIEWS STAT 02/17/2024 4:31 AM CDT XR HAND PORT LEFT G/E 3 VIEWS STAT 02/17/2024 2:48 AM CDT XR CHEST 2 VIEWS STAT 02/17/2024 2:18 AM CDT CBC WITH PLATELETS AND DIFFERENTIAL STAT 02/17/2024 1:48 AM CDT TROPONIN T, HIGH SENSITIVITY STAT 02/17/2024 1:48 AM CDT CBC WITH PLATELETS & DIFFERENTIAL STAT 02/17/2024 1:48 AM CDT BASIC METABOLIC PANEL STAT 02/17/2024 1:48 AM CDT EKG 12-LEAD, TRACING ONLY STAT 02/17/2024 1:04 AM CDT documented in this encounter Results * EKG 12-lead, tracing only (02/17/2024 2:24 PM CDT) Systolic Blood Pressure mmHg RADIOLOGY RESULTS Diastolic Blood Pressure mmHg RADIOLOGY RESULTS Ventricular Rate 128 BPM RAD IOLOGY RESULTS Atrial Rate 128 BPM RADIOLOG Y RESULTS AL Interval 152 ms RADIOLOG Y RESULTS QRS Duration 68 ms RADIOLO GY RESULTS QT 290 ms RADIOLOGY RESULTS QTc 423 ms RADIOLOGY RESULTS P [place] 54 degrees RADIOLOGY RESULTS R AXIS 8 degrees RADIOLOGY RESULTS T [place] 21 degrees RADIOLOGY RESULTS Interpretation ECG Sinus [...] Confirmed by - EMERGENCY ROOM, PHYSICIAN ([id number]), managing editor SANDI RICKETTS ([id number]) on 02/17/2024 2:34:00 PM RADIOLOGY RESULTS 02/17/2024 2:24 PM CDT 02/17/2024 2:34 PM CDT Kingsley Kimble MD ECG ORDER BRAYAN RADIOLOGY RESULTS * XR Shoulder Right G/E 3 Views (02/17/2024 4:31 AM CDT) Anatomical Region Laterality Modality Shoulder, Right Shoulder Right Digital Radiography 02/17/2024 4:31 AM CDT Impressions 02/17/2024 4:42 AM CDT IMPRESSION: No visible fracture or dislocation. Narrative 02/17/2024 4:42 AM CDT EXAM: XR SHOULDER RIGHT G/E 3 VIEWS LOCATION: [facility] DATE: 02/17/2024 INDICATION: pain after a fall COMPARISON: None. Procedure Note Gabriela Coffman MD, - 02/17/2024 EXAM: XR SHOULDER RIGHT G/E 3 VIEWS LOCATION: [facility] DATE: 02/17/2024 INDICATION: pain after a fall [...] HAND PORT LEFT G/E 3 VIEWS LOCATION: [facility] DATE: 02/17/2024 INDICATION: fall, left hand swelling COMPARISON: None. Procedure Note Gabriela Coffman MD, MD - 02/17/2024 EXAM: XR HAND PORT LEFT G/E 3 VIEWS LOCATION: [facility] DATE: 02/17/2024 INDICATION: fall, left hand swelling COMPARISON: None. IMPRESSION: No visible fracture or dislocation. Kingsley Kimble MD IMG DIAGN OSTIC IMAGING ORDERABLES * XR Chest 2 Views (02/17/2024 2:18 AM CDT) Anatomical Region Laterality Modality Chest Digital Radiogra phy 02/17/2024 2:18 AM CDT Impressions 02/17/2024 2:22 AM CDT IMPRESSION: Normal heart size. Right chest port catheter tip overlies the low SVC. Lungs are clear. No visible pneumothorax or pleural effusion. Narrative 02/17/2024 2:22 AM CDT EXAM: XR CHEST 2 VIEWS LOCATION: [facility] DATE: 02/17/2024 INDICATION: chest pain following COVID infection COMPARISON: 02/07/2024 Procedure Note Casper Nagel MD - 02/17/2024 EXAM: XR CHEST 2 VIEWS LOCATION: [facility] DATE: 02/17/2024 INDICATION: chest pain following COVID infection COMPARISON: 02/07/2024 IMPRESSION: Normal heart size. Right chest port catheter tip overlies thelow SVC. Lungs are clear. No visible pneumothorax or pleural effusion. Kingsley Kimble MD IMG DIAGN OSTIC IMAGING ORDERABLES * (ABNORMAL) CBC with platelets and differential (02/17/2024 1:48 AM CDT) WBC Count 11.5(H) 4.0 - 11.0 10e3/uL 02/17/2024 1:56 AM CDT [facility] RBC Count 4.23 3.80 - 5.20 10e6/uL 02/17/2024 1:56 AM CDT [facility] Hemoglobin 12.1 11.7 - 15.7 g/dL 02/17/2024 1:56 AM CDT [facility] Hematocrit 35.9 35.0 - 47.0 % 02/17/2024 1:56 AM CDT [facility] MCV 85 78 - 100 fL 02/17/2024 1:56 AM CDT [facility] MCH 28.6 26.5 - 33.0 pg 02/17/2024 1:56 AM CDT [facility] MCHC 33.7 31.5 - 36.5 g/dL 02/17/2024 1:56 AM CDT [facility] RDW 18.8(H) 10.0 - 15.0 % 02/17/2024 1:56 AM CDT [facility] Platelet Count 442 150 - 450 10e3/uL 02/17/2024 1:56 AM CDT [facility] % Neutrophils 60 % 02/17/2024 1:56 AM CDT [facility] % Lymphocytes 32 % 02/17/2024 1:56 AM CDT [facility] % Monocytes 6 % 02/17/2024 1:56 AM CDT [facility] % Eosinophils 1 % 02/17/2024 1:56 AM CDT [facility] % Basophils 0 % 02/17/2024 1:56 AM CDT [facility] % Immature Granulocytes 1 % 02/17/2024 1:56 AM CDT [facility] NRBCs per 100 WBC 0 <1 /100 024 1:56 AM CDT [facility] Absolute Neutrophils 6.9 1.6 - 8.3 10e3/uL 02/17/2024 1:56 AM CDT [facility] Absolute Lymphocytes 3.7 0.8 - 5.3 10e3/uL 02/17/2024 1:56 AM CDT [facility] Absolute Monocytes 0.6 0.0 - 1.3 10e3/uL 02/17/2024 1:56 AM CDT [facility] Absolute Eosinophils 0.1 0.0 - 0.7 10e3/uL 02/17/2024 1:56 AM CDT [facility] Absolute Basophils 0.0 0.0 - 0.2 10e3/uL 02/17/2024 1:56 AM CDT [facility] Absolute Immature Granulocytes 0.1 <=0.4 10e3/uL 02/17/2024 1:56 AM CDT [facility] Absolute NRBCs 0.0 10e3/uL 02/17/2024 1:56 AM CDT [facility] Blood VENOUS LINE / Unknown Venipuncture / Unknown 02/17/2024 1:48 AM CDT 02/17/2024 1:54 AM CDT Kingsley Kimble MD LAB - BLO OD ORDERABLES LABORATORY [facility] [address] [facility] Lab (1st floor, no room number) [place] [address], [facility] * Troponin T, High Sensitivity (02/17/2024 1:48 AM CDT) Troponin T, High Sensitivity <6 <=14 ng/L [...] MD LAB - BLO OD ORDERABLES LABORATORY [facility] [address] [facility] Lab (1st floor, no room number) [place] [address] * (ABNORMAL) Basic metabolic panel (02/17/2024 1:48 AM CDT) [facility] Signature Sodium 135 135 - 145 mmol/L 02/17/2024 2:15 AM CDT LABORATORY Comment:Reference intervals for this test were updated on 08/24/2023 to more accurately reflect our healthy population. There may be differences in the flagging of prior results with similar values performed with this method. Interpretation of those prior results can be made in the context of the updated reference intervals. Potassium 3.6 3.4 - 5.3 mmol/L 02/17/2024 2:15 AM CDT LABORATORY Chloride 101 98 - 107 mmol/L 02/17/2024 2:15 AM CDT LABORATORY Carbon Dioxide (CO2) 21(L) 22 - 29 mmol/L 02/17/2024 2:15 AM CDT LABORATORY Anion Gap 13 7 - 15 mmol/L 02/17/2024 2:15 AM CDT [facility] Urea Nitrogen 5.8(L) 6.0 - 20.0 mg/dL 02/17/2024 2:15 AM CDT [facility] Creatinine 0.60 0.51 - 0.95 mg/dL 02/17/2024 2:15 AM CDT [facility] GFR Estimate >90 >60 mL/min/1. 73m2 02/17/2024 2:15 AM CDT [facility] Calcium 8.5(L) 8.6 - 10.0 mg/dL 02/17/2024 2:15 AM CDT [facility] Glucose 111(H) 70 - 99 mg/dL 02/17/2024 2:15 AM CDT [facility] Blood VENOUS LINE / Unknown Venipuncture / Unknown 02/17/2024 1:48 AM CDT 02/17/2024 1:54 AM CDT Kingsley Kimble MD LAB - BLO OD ORDERABLES Performing Organization Address City/State/[facility] Co de Phone Number LABORATORY [facility] [address] Lab (1st floor, no room number) [place] [address] * EKG 12 lead (02/17/2024 1:04 AM CDT) Systolic Blood Pressure mmHg RADIOLOGY RESULTS Diastolic Blood Pressure mmHg RADIOLOGY RESULTS Ventricular Rate 122 BPM RAD IOLOGY RESULTS Atrial Rate 122 BPM RADIOLOG Y RESULTS AL Interval 158 ms RADIOLOG Y RESULTS QRS Duration 68 ms RADIOLO GY RESULTS QT 306 ms RADIOLOGY RESULTS QTc 436 ms RADIOLOGY RESULTS P Lansing 73 degrees RADIOLOGY RESULTS R AXIS -9 degrees RADIOLOGY RESULTS T [place] 41 degrees RADIOLOGY RESULTS Interpretation ECG Sinus tachycardia Low voltage QRS Cannot rule out Anterior infarct (cited on or before 07-FEB-2024) Abnormal ECG When compared with ECG of 07-FEB-2024 02:20, No significant change was found Confirmed by - EMERGENCY ROOM, PHYSICIAN ([id number]), managing editor NORMAN RICHARDSON ([id number]) on 02/17/2024 6:39:05 AM RADIOLOGY RESULTS 02/17/2024 1:04 AM CDT 02/17/2024 6:39 AM CDT Kingsley Kimble MD ECG ORDER BRAYAN RADIOLOGY RESULTS documented in this encounter Visit Diagnoses Diagnosis Chest pain, unspecified type documented in this encounter Administered Medications Inactive Administered Medications - up to 3 most recent administrations Medication Order MAR Action Action Date Dose Rate Site acetaminophen (TYLENOL) tablet 650 mg 650 mg, Oral, EVERY 4 HOURS PRN, fever, Starting on Marleny 02/17/24 at 0436, Maximum acetaminophen dose from all sources = 75 mg/kg/day not to exceed 4 grams/day. $Given 02/17/2024 5:01 AM CDT 650 mg heparin 100 unit/mL injection 5-10 mL 5-10 mL, Intracatheter, EVERY 28 DAYS, First dose on Marleny 02/17/24 at 0330, To de-access each port in dual implanted port. Flush with 10 mL NS sodium chloride 0.9% flush followed by 5 mL heparin (100 units/mL) at discharge and at least every 28 days. MAX: 5 mL per each port lumen $Given 02/17/2024 3:57 AM CDT 5 mLs heparin lock flush 10 UNIT/ML injection 5-10 mL 5-10 mL, Intracatheter, EVERY 1 HOUR PRN, post meds or blood draw, other, to lock each port in dual implanted port, Starting on Marleny 02/17/24 at 0325, Flush each port lumen with the sodium chloride 0.9% flush followed by the heparin flush. MAX dose: 5 mL of heparin for each lumen heparin lock flush 10 UNIT/ML injection 5-10 mL 5-10 mL, Intracatheter, EVERY 24 HOURS, First dose on Marleny 02/17/24 at 0330, To lock each dormant port in dual implanted port. MAX: 5 mL of heparin for each lumen Check PRN heparin flush order to see when the last dose of the PRN heparin was given before administering this heparin dose. Flush with sodium chloride 0.9% followed by the heparin flush. HYDROmorphone (DILAUDID) tablet 2 mg 2 mg, Oral, EVERY 2 HOURS PRN, moderate pain, Starting on Marleny 02/17/24 at 0122 $Given 02/17/2024 4:10 AM CDT 2 mg $Given 02/17/2024 1:57 AM CDT 2 mg loperamide (IMODIUM) capsule 4 mg 4 mg, Oral, ONCE, On Marleny 02/17/24 at 0125, For 1 dose, maximum: 16 mg/day $Given 02/17/2024 1:35 AM CDT 4 mg sodium chloride (PF) 0.9% PF flush 10-20 mL 10-20 mL, Intracatheter, EVERY 1 MIN PRN, line flush, post meds or blood draw, to flush each lumen of the CVC Implanted port, Starting on Marleny 02/17/24 at 0325, 10 mL per port lumen post IV meds; 20 mL per port lumen post post blood draw. sodium chloride (PF) 0.9% PF flush 10-20 mL 10-20 mL, Intracatheter, EVERY 1 HOUR PRN, other, to de-access port when not in use, Starting on Marleny 02/17/24 at 0325, Use sodium chloride 0.9% at least daily to de-access each port and lock dormant implanted port while not in use. Flush each port access with 10 mL sodium chloride 0.9% MAX: 10 mL per each port lumen sodium chloride (PF) 0.9% PF flush 10-20 mL 10-20 mL, Intracatheter, EVERY 28 DAYS, First dose on Marleny 02/17/24 at 0330, To flush and lock each port in dual implanted port. Flush each port with 10 mL sodium chloride 0.9% followed by either heparin or anticoagulant citrate as ordered. Max: 10 mL per each port lumen. sodium chloride 0.9% BOLUS 1,000 mL Intravenous, 1,000 mL, ONCE, at 1,000 mL/hr, Administer over 1 Hours, On Marleny 02/17/24 at 0105, For 1 dose $New Bag 02/17/2024 1:57 AM CDT 1,000 mLs 1000 mL/hr documented in this encounter Active and Recently Administered Medications Times are shown in CDT. Scheduled Medication Order 02/15/2024 02/16/2024 02/17/2024 heparin 100 unit/mL injection 5-10 mL 5-10 mL, Intracatheter, EVERY 28 DAYS, First dose on Marleny 02/17/24 at 0330, To de-access each port in dual implanted port. Flush with 10 mL NS sodium chloride 0.9% flush followed by 5 mL heparin (100 units/mL) at discharge and at least every 28 days. MAX: 5 mL per each port lumen 0357 ($Given - Provi rosita: Princess Parikh, DONNA) heparin lock flush 10 UNIT/ML injection 5-10 mL 5-10 mL, Intracatheter, EVERY 24 HOURS, First dose on Marleny 02/17/24 at 0330, To lock each dormant port in dual implanted port. MAX: 5 mL of heparin for each lumen Check PRN heparin flush order to see when the last dose of the PRN heparin was given before administering this heparin dose. Flush with sodium chloride 0.9% followed by the heparin flush. 0330 (Canceled Entry - Provider: Orders Generic Provider - Comment: Automatically canceled at discontinue of medication order) loperamide (IMODIUM) capsule 4 mg (COMPLETED) 4 mg, Oral, ONCE, On Marleny 02/17/24 at 0125, For 1 dose, maximum: 16 mg/day 0135 ($Given - Provi rosita: Meredith Guaman RN) sodium chloride (PF) 0.9% PF flush 10-20 mL 10-20 mL, Intracatheter, EVERY 28 DAYS, First dose on Marleny 02/17/24 at 0330, To flush and lock each port in dual implanted port. Flush each port with 10 mL sodium chloride 0.9% followed by either heparin or anticoagulant citrate as ordered. Max: 10 mL per each port lumen. 0330 (Canceled Entry - Provider: Orders Generic Provider - Comment: Automatically canceled at discontinue of medication order) sodium chloride 0.9% BOLUS 1,000 mL (COMPLETED) Intravenous, 1,000 mL, ONCE, at 1,000 mL/hr, Administer over 1 Hours, On Marleny 02/17/24 at 0105, For 1 dose 0157 ($New Bag - Pro vider: Meredith Guaman RN)0357 (Stopped - Provider: Princess Parikh RN) PRN Medication Order 02/15/2024 02/16/2024 02/17/2024 acetaminophen (TYLENOL) tablet 650 mg 650 mg, Oral, EVERY 4 HOURS PRN, fever, Starting on Marleny 02/17/24 at 0436, Maximum acetaminophen dose from all sources = 75 mg/kg/day not to exceed 4 grams/day. 0501 ($Given - Provi rosita: Princess Parikh, RN) heparin lock flush 10 UNIT/ML injection 5-10 mL 5-10 mL, Intracatheter, EVERY 1 HOUR PRN, post meds or blood draw, other, to lock each port in dual implanted port, Starting on Marleny 02/17/24 at 0325, Flush each port lumen with the sodium chloride 0.9% flush followed by the heparin flush. MAX dose: 5 mL of heparin for each lumen HYDROmorphone (DILAUDID) tablet 2 mg 2 mg, Oral, EVERY 2 HOURS PRN, moderate pain, Starting on Marleny 02/17/24 at 0122 0157 ($Given - Provi rosita: Meredith Guaman RN)0410 ($Given - Provider: Princess Parikh RN) sodium chloride (PF) 0.9% PF flush 10-20 mL 10-20 mL, Intracatheter, EVERY 1 MIN PRN, line flush, post meds or blood draw, to flush each lumen of the CVC Implanted port, Starting on Marleny 02/17/24 at 0325, 10 mL per port lumen post IV meds; 20 mL per port lumen post post blood draw. sodium chloride (PF) 0.9% PF flush 10-20 mL 10-20 mL, Intracatheter, EVERY 1 HOUR PRN, other, to de-access port when not in use, Starting on Marleny 02/17/24 at 0325, Use sodium chloride 0.9% at least daily to de-access each port and lock dormant implanted port while not in use. Flush each port access with 10 mL sodium chloride 0.9% MAX: 10 mL per each port lumen 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 Assessment Noted Time PHQ-9 Depression Total Score: 3 05/27/20 23 5:00 PM CDT documented as of this encounter Care Teams Restaurant Attendant Relationship Specialty Start [place] [address] [address] [address] PCP - General Family Medicine 04/22/23 [place] [address] [address] [address] Assigned Pain Medication Provider 12/07/22 [place] [address] [address] [address] Assigned PCP 01/23/23 [place] [address] [place] [address] Assigned Musculoskeletal Provider 01/23/23 Gregorio Dalton PA-C [address] [address] Assigned Surgical Provider 05/22/23 Kingsley Garcia MD [address] [place] [address] Assigned Heart and Vascular Provider 08/07/23 [place] [address] [address] [address] Family Medicine 09/10/23 Master Shea PA-C [address] [place] [address] Physician Information Technology Data Analyst Gastroenterology 09/10/23 Allyssa Justice MD [facility] [address] [place] [address] Hematology & Oncology 12/10/23 Genaro Christian MD [address] [place] [address] Cardiovascular Disease 12/22/23 Master Shea PA-C [address] [place] [address] Assigned Gastroenterology Provider 12/23/23 Sienna Guillermo DO [address] [place] [address]35 Physician Cardiovascular Disease 01/18/24 documented as of this encounter
--- OUTSIDE RECORDS SUMMARY | 2024-03-25 18:16 | XMS_ITS | Encounter Summary ---
Author Name Unknown Organization [place] Address [facility] [place] [address] Care Team Providers Care Matchbook Maker Name Role Phone Segundo Mcclelland MD Unavailable [phone] Segundo Mcclelland MD Unavailable [phone] Qamar Jackson MD Unavailable Segundo Mcclelland MD Primary Care Provider + Gregorio Dalton PA-C Unavailable [phone] Kingsley Garcia MD Unavailable + [phone] Segundo Mcclelland MD Unavailable [phone] Master Shea PA-C Unavailable Allyssa Justice MD Unavailable [phone] Genaro Christian MD Unavailable [phone] Master Shea-Shirley Unavailable Sienna Guillermo DO Unavailable Reason for Referral * Consultation (Routine: Next available opening) - Pending Review Specialty Diagnoses / Procedures Referred By Vivek t Referred To Contact Diagnoses Acute low back pain with radicular symptoms, duration less than 6 weeks Stevenson Shelton MD [facility] [address] [address] [facility] [place] [address] [place] [address] Referral ID Status Reason Start Date Expiration Date V isits Requested Visits Authorized [id number] Pending Review 02/22/2024 02/21/2025 1 1 Question Answer Referral Type: Per Protocol Scheduling Instructions: [facility] will call you to coordinate your care as prescribed by your provider. If you don't hear from a admissions representative within 2 business days, please call . Additional Information: Pt is established pt with Dr. Shelton and has appt already scheduled. Comments Please be aware that coverage of these services is subject to the terms and limitations of your health insurance plan. Call member services at your health plan with any benefit or coverage questions. [facility] will call you to coordinate your care as prescribed by your provider. If you don't hear from a admissions representative within 2 business days, please call . Encounter Details Date Type Department Care Team (Late st Contact Info) Description 02/22/2024 MyC Medical Advice [facility] [id number] [place] [address] [place] [address] [place] [address] Acute low back pain with radicular symptoms, duration less than 6 weeks (Primary Dx) Social History Tobacco Use Types [...] Telephone Encounter - Sienna Wilder RN - 02/22/2024 12:27 PM CDT Will forward to Dr. Mcclelland. Does she need to contact her insurance? documented in this encounter Plan of Treatment Upcoming Encounters Date Type Department Care Team (Late st Contact Info) Description 05/09/2024 10:00 AM CDT Office Visit [facility] [address] [place] [address] [place] [address] [place] [address] Scheduled Referrals Name Type Priority Associated Diagnoses Orde r Schedule Spine Director Of Outreach Referral Referral Routine: Next available opening Acute low back pain with radicular symptoms, duration less than 6 weeks Expected: 02/22/2024 (Approximate), Expires: 02/21/2025 documented as of this encounter Visit Diagnoses Diagnosis Acute low back pain with radicular symptoms, duration less than 6 weeks- Primary 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 Assessment Noted Time PHQ-9 Depression Total Score: 4 02/21/20 24 1:54 PM CDT documented as of this encounter Care Teams Matchbook Maker Relationship Specialty Start [place] [address] [place] [address] PCP - General Family Medicine 04/22/23 [place] [address] [place] [address] Assigned Pain Medication Provider 12/07/22 [place] [address] [place] [address] Assigned PCP 01/23/23 [place] [address] [place] [address] Assigned Musculoskeletal Provider 01/23/23 Gregorio Dalton PA-C [address] [place] [address] Assigned Surgical Provider 05/22/23 Kingsley Garcia MD [address] [place] [address] Assigned Heart and Vascular Provider 08/07/23 [place] [address] [place] [address] Family Medicine 09/10/23 Master Shea PA-C [address] [place] [address] Physician Clinical Applications Manager Gastroenterology 09/10/23 Allyssa Justice MD [facility] [address] [place] [address] Hematology & Oncology 12/10/23 Genaro Christian MD [address] [place], [place] [address] Cardiovascular Disease 12/22/23 Master Shea PA-C [address] [place] [address] Assigned Gastroenterology Provider 12/23/23 Sienna Guillermo DO [address] [place] [address] Physician Cardiovascular Disease 01/18/24 documented as of this encounter
--- OUTSIDE RECORDS SUMMARY | 2024-03-25 18:16 | XMS_ITS | Encounter Summary ---
Author Name Unknown Organization [place] Address [address] [place] [address] Care Team Providers Care Ski Technician Name Role Phone Segundo Mcclelland MD Unavailable [phone] Segundo Mcclelland MD Unavailable [phone] Qamar Jackson MD Unavailable Segundo Mcclelland MD Primary Care Provider + Gregorio Dalton PA-C Unavailable [phone] Kingsley Garcia MD Unavailable + [phone] Segundo Mcclelland MD Unavailable [phone] Master Shea PA-C Unavailable Allyssa Justice MD Unavailable [phone] Genaro Christian MD Unavailable Master Shea-Shirley Unavailable Sienna Guillermo DO Unavailable Reason for Visit * Reason Comments Syncope Vomiting Encounter Details Date Type Department Care Team (Late st Contact Info) Description 02/17/2024 3:57 PM CDT - 02/17/2024 6:34 PM CDT Emergency [facility] Emergency Dept [address] [place] [address] Seth Farias MD EMERGENCY PHYSICIAN [place] [address] [place] [address] Nausea and vomiting, unspecified vomiting type; Orthostatic syncope Discharge Disposition: Home or Self Care Social [...] Sign Reading Time Taken Comments Blood Pressure 161/112 02/17/2024 2:29 PM CDT Pulse 137 02/17/2024 2:29 PM CDT Temperature 37.1 ??C (98.7 ??F) 02/17/2024 2:29 PM CD T Respiratory Rate 18 02/17/2024 2:29 PM CDT Oxygen Saturation 98% 02/17/2024 2:29 PM CDT Inhaled Oxygen Concentration - - Weight 107.2 kg (236 lb 5.3 oz) 02/17/2024 2:29 PM CDT Height 167.6 cm (5' 6) 02/17/2024 2:29 PM CDT Body Mass Index 38.15 02/17/2024 2:29 PM CDT documented in this encounter Discharge Instructions * Attachments The following attachments cannot be sent through Care Everywhere. * Nausea and Vomiting (Botswanan) * Fainting (Botswanan) documented in this encounter Medications at Time [...] anxiety naloxone (NARCAN) 4 MG/0.1ML nasal spray Scroggins 4 mg into one nostril alternating nostrils [...] for severe pain 2 tablet 02/11/2024 02/18/2024 loperamide (IMODIUM A-D) 2 MG tablet Take [...] as of this encounter ED Notes * Dolores Wang RN - 02/17/2024 6:25 PM CDT Patient requested port to be de-accessed so that she can be discharged. * Lisa Heck RN - 02/17/2024 6:25 PM CDT Pt requested port to be de accessed before fluids were finished stating that she doesn't understandwhy we will not give her pain medication. Police Cadet explained we are following her care plan. Pt stated that she wants pain medication and thinks that the doctor should listen to her primary care doctorand follow that plan. Police Cadet explained that the provider spoke with her at length about her plan of care during the visit today port was de accessed prior to pt leaving * Genie Pavon RN - 02/17/2024 2:28 PM CDT Pt presents to ED alone for vomiting and syncopal episode today. She was just discharged this AM from here but clinic told her to come back to ED. Pt endorses chest pain from vomiting. Dx with Covzenon last night. * Seth Farias MD - 02/17/2024 2:21 PM CDT History Chief Complaint: Syncope and Vomiting HPI Sandi Lopez is a 38 year old female well known to me in no acute appearance or outside of baseline. Was seen 12 hours ago with full workup. PCP she states sent her in here. Cannot go to infusion clinic until Wednesday. Additionally states has dilaudid po prescription that pharmacy has on backorder. Otherwise she describes recurrent syncope. States vomiting. Possibly home covid tests positive. None done in ER. Otherwise full workup overnight. Independent Historian: Review of External Notes: Looks like actually missed PCP follow up with issues for opioids prescription rescheduled for 02.21.24 Otherwise extensive history known to myself personally of EMR reviewed updates since I saw her laston 12.24.23 Medications: acetaminophen (TYLENOL) 325 MG tablet apixaban ANTICOAGULANT (ELIQUIS) 5 MG tablet childrens multivitamin w/iron (FLINTSTONES COMPLETE) chewable tablet Cholecalciferol (VITAMIN D3) 50 MCG (1999) CAPS diphenhydrAMINE (BENADRYL) 25 MG capsule EPINEPHrine (ANY BX GENERIC EQUIV) 0.3 MG/0.3ML injection 2-pack folic acid (FOLVITE) 1 MG tablet gabapentin (NEURONTIN) 800 MG tablet HYDROmorphone (DILAUDID) 8 MG tablet loperamide (IMODIUM A-D) 2 MG tablet LORazepam (ATIVAN) 1 MG tablet naloxone (NARCAN) 4 MG/0.1ML nasal spray pantoprazole (PROTONIX) 40 MG EC tablet phenazopyridine (PYRIDIUM) 100 MG tablet zolpidem (AMBIEN) 10 MG tablet Past Medical History: Past Medical History: Diagnosis Date Abnormal Pap smear Allergic rhinitis Anemia 2012 Atrial flutter Borderline personality disorder Depressive disorder [...] 10/30/2011 Procedure:CERCLAGE CERVICAL; CERCLAGE CERVICAL; Surgeon:JACOB VAUGHAN; Location:[facility] OR CERCLAGE CERVICAL 10/30/2011 Procedure:CERCLAGE CERVICAL; REMOVAL [...] Procedure: ESOPHAGOGASTRODUODENOSCOPY; Surgeon: Meg Lee MD; Location: [facility]; Service: ESOPHAGOSCOPY, GASTROSCOPY, DUODENOSCOPY (EGD), COMBINED N/A 02/13/2016 Procedure: ESOPHAGOGASTRODUODENOSCOPY; Surgeon: Meg Lee MD; Location: [facility] OR; Service: ESOPHAGOSCOPY, GASTROSCOPY, DUODENOSCOPY (EGD), COMBINED [...] CONTROLLED EPITAXIS; Surgeon: Declan Mata MD; Location: [facility] OR; Service: OOPHORECTOMY Right Talar fracture lt foot surgery 10/1998 TONSILLECTOMY & ADENOIDECTOMY 1995 TRANSESOPHAGEAL ECHOCARDIOGRAM INTRAOPERATIVE N/A 09/17/2021 Procedure: ECHOCARDIOGRAM, TRANSESOPHAGEAL, INTRAOPERATIVE; Surgeon: GENERIC ANESTHESIA PROVIDER; Location: [facility] OR TUBAL LIGATION Physical Exam Patient Vitals for the past 24 hrs: BP Temp Temp src Pulse Resp SpO2 Height Weight 02/17/24 1429 (!) 161/112 98.7 ??F (37.1 ??C) Temporal (!) 137 18 98 % 1.676 m (5' 6) 107.2 kg (236 lb 5.3 oz) Physical Exam General: Patient is well appearing. No distress. No dehydration no active vomiting. Head: Atraumatic. Eyes: Conjunctivae and EOM are normal. No scleral icterus. Neck: Normal range of motion. Neck supple. Cardiovascular: tachy rate, regular rhythm, normal heart sounds and intact distal pulses. Pulmonary/Chest: Breath sounds normal. No respiratory distress. Abdominal: Soft. Bowel sounds are normal. No distension. No tenderness. No rebound or guarding. Musculoskeletal: Normal range of motion. Skin: Warm and dry. No rash noted. Not diaphoretic. Emergency Department Course ECG Sinus tachy HR 128 Imaging: No orders to display Laboratory: Labs Ordered and Resulted from Time of ED Arrival to Time of ED Departure INFLUENZA A/B, RSV, & SARS-COV2 PCR - Normal Result Value Influenza A PCR Negative Influenza B PCR Negative RSV PCR Negative SARS CoV2 PCR Negative Procedures Emergency Department Course & Assessments: Interventions: Medications sodium chloride 0.9% BOLUS 1,000 mL (has no administration in time range) diphenhydrAMINE (BENADRYL) injection 25 mg (has no administration in time range) Assessments: Independent Interpretation (X-rays, CTs, rhythm strip): Consultations/Discussion of Management or Tests: Social Determinants of Health affecting care: Healthcare Access/Compliance Disposition: The patient was discharged. Impression & Plan Medical Decision Makin YOF who presents with a history and clinical exam consistent with syncope chronic nausea vomiting chronic and chronic pain multiple sites. While chronic was the most likely etiology given the history of this patient, I considered a broad differential for their symptoms today including cardiac arrythmia, ACS, aortic stenosis, HOCM, PE, orthostatic hypotension, drugs, situational, carotid hypersensitivity, seizure, TIA, stroke, vasovagal. There are no signs of a concerning etiology for syncopeat this point. No red flags in abdomen. Had extensive workup already at last visit. In addition, nochest pain, no seizure activity or post-ictal period, no murmur, and no signs of orthostasis in theED, no focal neurologic symptoms, and no complaints of concerning headache. The workup in the ED isnegative and the physical exam is re-assurring. Supportive outpatient management is therefore indicated. Diagnosis: ICD-10-CM 1. Nausea and vomiting, unspecified vomiting type R11.2 2. Orthostatic syncope I95.1 Discharge Medications: New Prescriptions No medications on file 02/17/2024 Seth Farias MD Stevens, Andrew C, MD 02/17/24 4475 documented in this encounter Plan of Treatment Upcoming Encounters Date Type Department Care Team (Late st Contact Info) Description 05/09/2024 10:00 AM CDT Office Visit [facility] [address] [place] [id number] [place] [address] [place] [address] (work) documented as of this encounter Procedures Procedure Name Priority Date/Time Associated Diagnosis Comments INFLUENZA A/B, RSV, & SARS-COV2 PCR STAT 02/17/2024 4:12 PM CDT documented in this encounter Results * Symptomatic Influenza A/B, RSV, & SARS-CoV2 PCR (COVID-19) Nose (02/17/2024 4:12 PM CDT) Influenza A PCR Negative Negative 02/17/2024 5:07 PM CDT [facility] Influenza B PCR Negative Negative 02/17/2024 5:07 PM CDT [facility] RSV PCR Negative Negative 02/17/2024 5:07 PM CDT [facility] SARS CoV2 PCR Negative Negative 02/17/2024 5:07 PM CDT [facility] Comment:NEGATIVE: SARS-CoV-2 (COVID-19) RNA not detected, presumed negative. Swab NASAL STRUCTURE / Unknown Non-blood Collection / Unknown 02/17/2024 4:12 PM CDT 02/17/2024 4:21 PM CDT Narrative [facility] - 02/17/2024 5:07 PM CDT Testing was performed using the Xpert Xpress CoV2/Flu/RSV Assay on the [employer] GeneXpert Instrument. This test should be ordered [...] This test was validated by the [facility]. These laboratories are certified under the Clinical Laboratory Improvement Amendments of 1988 (CLIA-88) as qualified to perform high complexity laboratory testing. Seth Farias MD LAB - MICRO GENERAL ORDERABLES [facility] [address] [facility] (1st floor, no room number) [place] [address], [facility] documented in this encounter Visit Diagnoses Diagnosis Nausea and vomiting, unspecified vomiting type Orthostatic syncope Syncope and collapse documented in this encounter Administered Medications Inactive Administered Medications - up to 3 most recent administrations Medication Order MAR Action Action Date Dose Rate Site diphenhydrAMINE (BENADRYL) injection 25 mg 25 mg, Intravenous, ONCE, On Marleny 02/17/24 at 1640, For 1 dose, Dilute in 25-50cc bag and infuse slowly. Protect from light. $Given 02/17/2024 5:19 PM CDT 25 mg sodium chloride 0.9% BOLUS 1,000 mL Intravenous, 1,000 mL, ONCE, at 1,000 mL/hr, Administer over 1 Hours, On Marleny 02/17/24 at 1640, For 1 dose $New Bag 02/17/2024 5:17 PM CDT 1,000 mLs 1000 mL/hr documented in this encounter Active and Recently Administered Medications Times are shown in CDT. Scheduled Medication Order 02/15/2024 02/16/2024 02/17/2024 diphenhydrAMINE (BENADRYL) injection 25 mg (COMPLETED) 25 mg, Intravenous, ONCE, On Marleny 02/17/24 at 1640, For 1 dose, Dilute in 25-50cc bag and infuse slowly. Protect from light. 1719 ($Given - Provi rosita: Lisa Heck RN) sodium chloride 0.9% BOLUS 1,000 mL (COMPLETED) Intravenous, 1,000 mL, ONCE, at 1,000 mL/hr, Administer over 1 Hours, On Marleny 02/17/24 at 1640, For 1 dose 1625 (Stopped - Prov ider: Lisa Heck RN)1717 ($New Bag - Provider: Lisa Heck RN) 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 Rule Out COVID-19 02/17/2024 02/17/2024 02/17/2024 5:07 PM CDT Assessment Noted Time PHQ-9 Depression Total Score: 3 05/27/20 23 5:00 PM CDT documented as of this encounter Care Teams Ski Technician Relationship Specialty Start [place] [address] [address] [address] PCP - General Family Medicine 04/22/23 [place] [address] [address] [address] Assigned Pain Medication Provider 12/07/22 [place] [address] [address] [address] Assigned PCP 01/23/23 [place] [address] [place] [address] Assigned Musculoskeletal Provider 01/23/23 Gregorio Dalton PA-C [address] [address] Assigned Surgical Provider 05/22/23 Kingsley Garcia MD [address] [place] [address] Assigned Heart and Vascular Provider 08/07/23 [place] [address] [address] [address] Family Medicine 09/10/23 Master Shea PA-C [address] [place] [address] Physician Quality Rn Gastroenterology 09/10/23 Allyssa Justice MD [facility] [address] [place] [address] Hematology & Oncology 12/10/23 Genaro Christian MD [address] [place], [place] [address] Cardiovascular Disease 12/22/23 Master Shea PA-C [address] [place] [address] Assigned Gastroenterology Provider 12/23/23 Sienna Guillermo DO [address] [place] [address] Physician Cardiovascular Disease 01/18/24 documented as of this encounter
--- OUTSIDE RECORDS SUMMARY | 2024-03-25 18:16 | XMS_ITS | Encounter Summary ---
Author Name Unknown Organization [place] Address [facility] [place] [address] Care Team Providers Care Surface Grinder Name Role Phone Segundo Mcclelland MD Unavailable [phone] Segundo Mcclelland MD Unavailable [phone] aQmar Jackson MD Unavailable Segundo Mcclelland MD Primary Care Provider + Gregorio Dalton PA-C Unavailable [phone] Kingsley Garcia MD Unavailable + [phone] Segundo Mcclelland MD Unavailable [phone] Master Shea PA-C Unavailable Allyssa Justice MD Unavailable [phone] Genaro Christian MD Unavailable [phone] Master Shea-Shirley Unavailable Sienna Guillermo DO Unavailable [phone] Reason for Visit * Reason Onset Date Comments Patient Request 02/17/2024 Encounter Details Date Type Department Care Team (Late st Contact Info) Description 02/17/2024 Telephone [facility] [address] [place] [address] [place] [address] [place] [address] Patient Request Social History Tobacco Use Types Packs/Day [...] Telephone Encounter - Olga Garcia RN - 02/17/2024 8:13 AM CDT Pt states she had COVID and was not feeling well so missed appt on 02/13. Also couldn't find her phone to call to cancel appt. Pt went to ED yesterday. VV with PCP rescheduled for 02/20. Pt also has infusion appt today and is wondering if she could go to her appt as she is still COVID positive. She also had IV infusion in . Advised to call Infusion center with update. Pt verbalized understanding. Olga Garcia, RN documented in this encounter Plan of Treatment Upcoming Encounters Date Type Department Care Team (Late st Contact Info) Description 05/09/2024 10:00 AM CDT Office Visit [facility] [address] [place] [address] [place] [address] [place] [address] documented as of this encounter Visit Diagnoses Not on file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 Assessment Noted Time PHQ-9 Depression Total Score: 3 05/27/20 5:00 PM CDT documented as of this encounter Care Teams Surface Grinder Relationship Specialty Start [place] [address] [place] [address] PCP - General Family Medicine 04/22/23 [place] [address] [place] [address] Assigned Pain Medication Provider 12/07/22 [place] [address] [place] [address] Assigned PCP 01/23/23 [place] [address] [place] [address] [place] [address] Assigned Musculoskeletal Provider 01/23/23 Gregorio Dalton PA-C [address] [address] Assigned Surgical Provider 05/22/23 Kingsley Garcia MD [address] [place] [address] Assigned Heart and Vascular Provider 08/07/23 [place] [address] [place] [address] Family Medicine 09/10/23 Master Shea PA-C [address] [place] [address] Physician Robotics Testing Technician Gastroenterology 09/10/23 Allyssa Justice MD [facility] [address] [place] [address] Hematology & Oncology 12/10/23 Genaro Christian MD [address] [place] [address] Cardiovascular Disease 12/22/23 Master Shea PA-C [address] [facility] [place] [address] Assigned Gastroenterology Provider 12/23/23 Sienna Guillermo DO [address] [place] [address] Physician Cardiovascular Disease 01/18/24 documented as of this encounter
--- OUTSIDE RECORDS SUMMARY | 2024-03-25 18:16 | XMS_ITS | Encounter Summary ---
Author Name Unknown Organization [place] Address [facility] [place] [address] Care Team Providers Care Clothes Marker Name Role Phone Segundo Mcclelland MD Unavailable [phone] Segundo Mcclelland MD Unavailable [phone] Qamar Jackson MD Unavailable Segundo Mcclelland MD Primary Care Provider + Gregorio Dalton PA-C Unavailable [phone] Kingsley Garcia MD Unavailable + [phone] Segundo Mcclelland MD Unavailable [phone] Master Shea PA-C Unavailable Allyssa Justice MD Unavailable [phone] Genaro Christian MD Unavailable [phone] Master Shea-C Unavailable Sienna Guillermo DO Unavailable [phone] Reason for Visit * Reason Comments Other Entered automaticall y based on patient selection in [employer]. Encounter Details Date Type Department Care Team (Late st Contact Info) Description 02/23/2024 4:55 PM CDT E-Visit [facility] [address] [place] [address] [place] [address] [place] [address] Other (Entered automatically based on ngozi... Social [...] Telephone Encounter - Segundo Mcclelland MD - 02/24/2024 6:25 PM CDT Provider E-Visit time total (minutes): [id number]; documented in this encounter Plan of Treatment Upcoming Encounters Date Type Department Care Team (Late st Contact Info) Description 05/09/2024 10:00 AM CDT Office Visit [facility] [place] [address] [address] [place] [address] [address] documented as of this encounter Visit Diagnoses Diagnosis Acute bilateral low back pain with bilateral sciatica- Primary 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 Assessment Noted Time PHQ-9 Depression Total Score: 4 02/21/20 24 1:54 PM CDT documented as of this encounter Care Teams Clothes Marker Relationship Specialty Start [place] [address] [address] PCP - General Family Medicine 04/22/23 [place] [address] [address] Assigned Pain Medication Provider 12/07/22 [place] [address] [address] [address] Assigned PCP 01/23/23 [place] [address] [place] [address] Assigned Musculoskeletal Provider 01/23/23 Gregorio Dalton PA-C [address] [address] Assigned Surgical Provider 05/22/23 Kingsley Garcia MD [address] [address] Assigned Heart and Vascular Provider 08/07/23 [place] [address] [address] [address] Family Medicine 09/10/23 Master Shea PA-C [address] [place] [address] Physician Leveler Helper Gastroenterology 09/10/23 Allyssa Justice MD [facility] [address] [place] [address] Hematology & Oncology 12/10/23 Genaro Christian MD [address] [place] [address] Cardiovascular Disease 12/22/23 Master Shea PA-C [address] [place] [address] Assigned Gastroenterology Provider 12/23/23 Sienna Guillermo DO [address] [place] [address] Physician Cardiovascular Disease 01/18/24 documented as of this encounter
--- OUTSIDE RECORDS SUMMARY | 2024-03-25 18:16 | XMS_ITS | Encounter Summary ---
Author Name Unknown Organization [place] Address [address] [place] [address] Care Team Providers Care Warehouse Laborer Name Role Phone Segundo Mcclelland MD Unavailable [phone] Segundo Mcclelland MD Unavailable [phone] Qamar Jackson MD Unavailable Segundo Mcclelland MD Primary Care Provider + Gregorio Dalton PA-C Unavailable [phone] Kingsley Garcia MD Unavailable + [phone] Segundo Mcclelland MD Unavailable [phone] Master Shea PA-C Unavailable Allyssa Justice MD Unavailable [phone] Genaro Christian MD Unavailable [phone] Master Shea-Shirley Unavailable Sienna Guillermo DO Unavailable Reason for Visit * Reason Comments Post-op Problem Encounter Details Date Type Department Care Team (Late st Contact Info) Description 02/11/2024 4:45 AM CDT - 02/11/2024 10:57 AM CDT [facility] [address] [place] [address] Sam Alvarado MD [facility] [address] [place] [address] Joe Man MD [facility] [address] [place] [address] Post-operative pain exacerbating chronic pain syndrome; Nausea and vomiting, unspecified vomiting type; COVID-19 virus infection Discharge Disposition: Home or Self Care Social [...] Sign Reading Time Taken Comments Blood Pressure 135/87 02/11/2024 10:49 AM CDT Pulse 112 02/11/2024 10:49 AM CDT Temperature 36.4 ??C (97.6 ??F) 02/11/2024 4:43 AM CD T Respiratory Rate 22 02/11/2024 4:43 AM CDT Oxygen Saturation 98% 02/11/2024 10:49 AM CDT Inhaled Oxygen Concentration - - Weight 86.2 kg (190 lb) 02/11/2024 10:50 AM CDT Height 167.6 cm (5' 6) 02/11/2024 10:50 AM CDT Body Mass Index 30.67 02/11/2024 10:50 AM CDT documented in this encounter Discharge Instructions * Attachments The following attachments cannot be sent through Care Everywhere. * Nausea and Vomiting (Estonian) documented in this encounter Medications at Time [...] anxiety naloxone (NARCAN) 4 MG/0.1ML nasal spray [place] 4 mg into one nostril alternating nostrils [...] as of this encounter ED Notes * Perlita Pond RN - 02/11/2024 10:52 AM CDT Pt discharged to home and will be taken to the ED lobby via wheelchair. Pt states she does not drive but will order a lyft to get her home. Pt is alert and oriented but slightly dizzy, she states this is her new normal. Port was de- accessed with heparin per protocol, oclusive dressing applied. Ptremoved the IV tubing per self when the IV bolus was complete. Pt states she is having a difficult time getting her home Dilaudid as her pharmacy has it back ordered, pt was encouraged to call her primary who ordered the original dose. Pt states she has already sent a message. Pt has no further questions and already has multiple appointments scheduled. Pt was taken via wheel chair to the ED lobby. * Aide Wetzel RN - 02/11/2024 4:43 AM CDT Pt to ER with c/o painful port a cath, pt had cath replaced last Wednesday now increased pain * Sam Alvaardo MD - 02/11/2024 4:39 AM CDT History Chief Complaint: Post-op Problem The history is provided by the patient. Sandi Lopez is a 38 year old female on Eliquis who presents for evaluation of a post-op problem. Sandi reports constant pain at her port a cath site on her right arm, which was last replaced on 02/03. She endorses nausea, vomiting, headache, and pharyngitis. She had 2 positive and 1 negative at-home Covid tests yesterday. She is currently scheduled to go to infusion clinic later today. Independent Historian: None - Patient Only Review of External Notes: I reviewed Dr. Kimble's ED note from 02/06. She complained of pain at her port site and a fall with head injury. CT head and chest were normal. Patient had port replacement on 02/03. Medications: acetaminophen (TYLENOL) 325 MG tablet apixaban ANTICOAGULANT (ELIQUIS) 5 MG tablet childrens multivitamin w/iron (FLINTSTONES COMPLETE) chewable tablet Cholecalciferol (VITAMIN D3) 50 MCG (1999 UT) CAPS diphenhydrAMINE (BENADRYL) 25 MG capsule EPINEPHrine (ANY BX GENERIC EQUIV) 0.3 MG/0.3ML injection 2-pack folic acid (FOLVITE) 1 MG tablet gabapentin (NEURONTIN) 800 MG tablet HYDROmorphone (DILAUDID) 8 MG tablet LORazepam (ATIVAN) 1 MG tablet [...] Past Surgical History: Procedure Laterality Date ADENOIDECTOMY 1997 ANKLE SURGERY APPENDECTOMY ARTHROSCOPY KNEE WITH LATERAL [...] Procedure: COMBINED ESOPHAGOSCOPY, GASTROSCOPY, DUODENOSCOPY (EGD);; Surgeon: Branonn Villarreal MD; Location: GI ESOPHAGOSCOPY, GASTROSCOPY, DUODENOSCOPY (EGD), COMBINED N/A 02/13/2016 Procedure: ESOPHAGOGASTRODUODENOSCOPY; Surgeon: Meg Lee MD; Location: [facility]; Service: ESOPHAGOSCOPY, GASTROSCOPY, DUODENOSCOPY (EGD), COMBINED N/A 02/13/2016 Procedure: ESOPHAGOGASTRODUODENOSCOPY; Surgeon: Meg Lee MD; Location: [facility] OR; Service: ESOPHAGOSCOPY, GASTROSCOPY, DUODENOSCOPY [...] CONTROLLED EPITAXIS; Surgeon: Declan Mata MD; Location: [facility]; Service: OOPHORECTOMY Right Talar fracture lt foot surgery 10/1998 TONSILLECTOMY & ADENOIDECTOMY 1995 TRANSESOPHAGEAL ECHOCARDIOGRAM INTRAOPERATIVE N/A 09/17/2021 Procedure: ECHOCARDIOGRAM, TRANSESOPHAGEAL, INTRAOPERATIVE; Surgeon: GENERIC ANESTHESIA PROVIDER; Location: [facility] OR TUBAL LIGATION Physical Exam Patient Vitals for the past 24 hrs: BP Temp Temp src Pulse Resp SpO2 02/11/24 0551 -- -- -- -- -- 97 % 02/11/24 0550 -- -- -- -- -- 97 % 02/11/24 0548 -- -- -- -- -- 96 % 02/11/24 0547 -- -- -- -- -- 100 % 02/11/24 0546 -- -- -- -- -- 91 % 02/11/24 0545 157/100 -- -- -- -- 100 % 02/11/24 0518 -- -- -- -- -- 98 % 02/11/24 0505 -- -- -- 110 -- -- 02/11/24 0504 -- -- -- 112 -- 100 % 02/11/24 0503 -- -- -- -- -- 100 % 02/11/24 0444 125/88 -- -- -- -- -- 02/11/24 0443 -- 97.6 ??F (36.4 ??C) Temporal 125 22 100 % Physical Exam Nursing note and vitals reviewed. Constitutional: Cooperative. HENT: Mouth/Throat: Mucous membranes are dry. Spitting in emesis bag. Cardiovascular: Tachycardic, regular rhythm and normal heart sounds. No murmur. Pulmonary/Chest: Effort normal and breath sounds normal. No respiratory distress. No wheezes. No rales. Port noted right upper chest. Surgical incision clean dry and intact without evidence of cellulitis or dehiscence Abdominal: Soft. Normal appearance. No distension. There is no tenderness. Musculoskeletal: Normal range of motion. Neurological: Alert. Oriented x 3 Skin: Skin is warm and dry. No rash or urticaria identified Psychiatric: Anxious appearing Emergency Department Course Laboratory: Labs Ordered and Resulted from Time of ED Arrival to Time of ED Departure BASIC METABOLIC PANEL - Abnormal Result Value Sodium 135 Potassium 3.3 (*) Chloride 100 Carbon Dioxide (CO2) 21 (*) Anion Gap 14 Urea Nitrogen 14.1 Creatinine 0.78 GFR Estimate >90 Calcium 8.6 Glucose 117 (*) CBC WITH PLATELETS - Abnormal WBC Count 13.6 (*) RBC Count 4.00 Hemoglobin 11.3 (*) Hematocrit 33.8 (*) MCV 85 MCH 28.3 MCHC 33.4 RDW 19.6 (*) Platelet Count 141 (*) Assessments/Consultations/Discussion of Management or Tests: ED Course as of 02/11/24 0544 WedFeb 11, 2024 0502 I obtained history and examined the patient as noted above. 0635 I rechecked the patient. Approximately 600 cc of fluid RN. No emesis noted in her emesis bag though patient states she vomited. She also states she is feeling itchy after chlorhexidine. No urticaria or other stigmata of anaphylaxis. Will order second bag of IV fluid Interventions: Medications sodium chloride 0.9% BOLUS 1,000 mL (has no administration in time range) sodium chloride 0.9% BOLUS 1,000 mL (1,000 mLs Intravenous $New Bag 02/11/24 1548) HYDROmorphone (DILAUDID) tablet 2 mg (2 mg Oral $Given 02/11/24 3851) Independent Interpretation (X-rays, CTs, rhythm strip): None Social Determinants of Health affecting care: None Disposition: Patient signed out to oncoming ED physician pending recheck after second bag of IV fluid. Dissipatedischarge Impression & Plan Medical Decision Making: This is a 38-year-old female with a complex history as noted above. Recent port replacement in right upper chest. She has been struggling with discomfort following this. She was seen on the 11 of this month with a CT scan that showed normal positioning and no complications. Overlying skin shows no evidence of cellulitis or other infection. She received her home dose of oral Dilaudid. She does have chronic pain with ongoing opioid dependence so our emergency department pain policy was followedand discussed with the patient. We did provide several liters IV fluid as she appeared clinically dry. No indication for repeat imaging. She notes she had a positive home COVID test but no hypoxia orincreased work of breathing of concern. She is anticoagulated as above so would not further evaluate for thrombotic disease especially in a patient who has had numerous CT scans this year already. She was concerned during her stay that she was having allergic reaction to the chlorhexidine cleaning solution used to place report. No stigmata of anaphylaxis on exam at that time or on serial rechecks. She does have a chart history of drug-seeking behavior to obtain IV Benadryl as well as Ativan. I do not feel she needs antihistamines or further intervention at this time. She is never been observed to vomit while in the emergency department during her stay. She has a chart listed allergy to most classes of antiemetics limiting options but given lack of observed vomiting I feel she is stable for discharge. Anticipate discharge after IV fluids later this morning. Patient has good follow-up with infusion clinic set up Diagnosis: ICD-10-CM 1. Post-operative pain exacerbating chronic pain syndrome G89.18 2. Nausea and vomiting, unspecified vomiting type R11.2 3. COVID-19 virus infection U07.1 Scribe Disclosure: Zurdo Sanchez Hailie, am serving as a scribe at 4:56 AM on 02/11/2024 to document services personally performed by Sam Alvarado MD based on my observations and the provider's statements to me. 02/11/2024 Sam Alvarado MD Amdahl, John, MD 02/11/24 0646 Sam Alvarado MD 02/11/24 0732 documented in this encounter Plan of Treatment Upcoming Encounters Date Type Department Care Team (Late st Contact Info) Description 05/09/2024 10:00 AM CDT Office Visit [facility] [place] [address] [facility] [place] [address] [place] [address] [address] documented as of this encounter Procedures Procedure Name Priority Date/Time Associated Diagnosis Comments BASIC METABOLIC PANEL STAT 02/11/2024 5:38 AM CDT CBC WITH PLATELETS STAT 02/11/2024 5: 38 AM CDT documented in this encounter Results * (ABNORMAL) CBC with platelets (02/11/2024 5:38 AM CDT) WBC Count 13.6(H) 4.0 - 11.0 10e3/uL 02/11/2024 5:52 AM CDT [facility] RBC Count 4.00 3.80 - 5.20 10e6/uL 02/11/2024 5:52 AM CDT [facility] Hemoglobin 11.3(L) 11.7 - 15.7 g/dL 02/11/2024 5:52 AM CDT [facility] Hematocrit 33.8(L) 35.0 - 47.0 % 02/11/2024 5:52 AM CDT [facility] MCV 85 78 - 100 fL 02/11/2024 5:52 AM CDT [facility] MCH 28.3 26.5 - 33.0 pg 02/11/2024 5:52 AM CDT [facility] MCHC 33.4 31.5 - 36.5 g/dL 02/11/2024 5:52 AM CDT [facility] RDW 19.6(H) 10.0 - 15.0 % 02/11/2024 5:52 AM CDT [facility] Platelet Count 141(L) 150 - 450 10e3/uL 02/11/2024 5:52 AM CDT [facility] Blood BLOOD SPECIMEN / Unknown Venipuncture / Unknown 02/11/2024 5:38 AM CDT 02/11/2024 5:47 AM CDT Sam Alvarado MD LAB - BLOOD ORDERABL ES LAB[facility]AT[facility] Acute Care Lab [address] [facility] Lab (1st floor, no room number) [place] [address], [facility] * (ABNORMAL) Basic metabolic panel (BMP) (02/11/2024 5:38 AM CDT) [facility] Sodium 135 135 - 145 mmol/L 02/11/2024 6:08 AM CDT LABORATORY Comment:Reference intervals for this test were updated on 08/24/2023 to more accurately reflect our healthy population. There may be differences in the flagging of prior results with similar values performed with this method. Interpretation of those prior results can be made in the context of the updated reference intervals. Potassium 3.3(L) 3.4 - 5.3 mmol/L 02/11/2024 6:08 AM CDT LABORATORY Chloride 100 98 - 107 mmol/L 02/11/2024 6:08 AM CDT LABORATORY Carbon Dioxide (CO2) 21(L) 22 - 29 mmol/L 02/11/2024 6:08 AM CDT LABORATORY Anion Gap 14 7 - 15 mmol/L 02/11/2024 6:08 AM CDT LABORATORY Urea Nitrogen 14.1 6.0 - 20.0 mg/dL 02/11/2024 6:08 AM CDT LABORATORY Creatinine 0.78 0.51 - 0.95 mg/dL 02/11/2024 6:08 AM CDT LABORATORY GFR Estimate >90 >60 mL/min/1. 73m2 02/11/2024 6:08 AM CDT LABORATORY Calcium 8.6 8.6 - 10.0 mg/dL 02/11/2024 6:08 AM CDT LABORATORY Glucose 117(H) 70 - 99 mg/dL 02/11/2024 6:08 AM CDT LABORATORY Blood BLOOD SPECIMEN / Unknown Venipuncture / Unknown 02/11/2024 5:38 AM CDT 02/11/2024 5:46 AM CDT Sam Alvarado MD LAB - BLOOD ORDERABL ES [facility] Acute Care Lab [address] [facility] Lab (1st floor, no room number) [place] [address], [facility] documented in this encounter Visit Diagnoses Diagnosis Post-operative pain exacerbating chronic pain syndrome Other acute postoperative pain Nausea and vomiting, unspecified vomiting type COVID-19 virus infection documented in this encounter Administered Medications Inactive Administered Medications - up to 3 most recent administrations Medication Order MAR Action Action Date Dose Rate Site heparin 100 unit/mL injection 500 Units 500 Units, Intracatheter, ONCE, On Wed02/11/24 at 0940, For 1 dose $Given 02/11/2024 10:43 AM CDT 500 Units HYDROmorphone (DILAUDID) tablet 2 mg 2 mg, Oral, ONCE, On Wed02/11/24 at 0515, For 1 dose $Given 02/11/2024 5:21 AM CDT 2 mg HYDROmorphone (DILAUDID) tablet 2 mg 2 mg, Oral, ONCE, On Wed02/11/24 at 0950, For 1 dose $Given 02/11/2024 9:51 AM CDT 2 mg sodium chloride 0.9% BOLUS 1,000 mL Intravenous, 1,000 mL, ONCE, at 1,000 mL/hr, Administer over 1 Hours, On Wed02/11/24 at 0515, For 1 dose $New Bag 02/11/2024 5:38 AM CDT 1,000 mLs 1000 mL/hr sodium chloride 0.9% BOLUS 1,000 mL Intravenous, 1,000 mL, ONCE, at 1,000 mL/hr, Administer over 1 Hours, On Wed02/11/24 at 0640, For 1 dose $New Bag 02/11/2024 7:48 AM CDT 1,000 mLs 1000 mL/hr documented in this encounter Active and Recently Administered Medications Times are shown in CDT. Scheduled Medication Order 02/09/2024 02/10/2024 02/11/2024 heparin 100 unit/mL injection 500 Units (COMPLETED) 500 Units, Intracatheter, ONCE, On Wed02/11/24 at 0940, For 1 dose 1043 ($Given - Provi rosita: Perlita Pond RN) HYDROmorphone (DILAUDID) tablet 2 mg (COMPLETED) 2 mg, Oral, ONCE, On Wed02/11/24 at 0515, For 1 dose 0521 ($Given - Provi rosita: Nahed Diaz RN) HYDROmorphone (DILAUDID) tablet 2 mg (COMPLETED) 2 mg, Oral, ONCE, On Wed02/11/24 at 0950, For 1 dose 0951 ($Given - Provi rosita: Perlita Pond RN) sodium chloride 0.9% BOLUS 1,000 mL (COMPLETED) Intravenous, 1,000 mL, ONCE, at 1,000 mL/hr, Administer over 1 Hours, On Wed02/11/24 at 0515, For 1 dose 0538 ($New Bag - Pro vider: Nahed Diaz RN)0730 (Stopped - Provider: Perlita Pond RN) sodium chloride 0.9% BOLUS 1,000 mL (COMPLETED) Intravenous, 1,000 mL, ONCE, at 1,000 mL/hr, Administer over 1 Hours, On Wed02/11/24 at 0640, For 1 dose 0748 ($New Bag - Pro vider: Perlita Pond RN)0933 (Stopped - Provider: Perlita Pond RN) 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 Assessment Noted Time PHQ-9 Depression Total Score: 3 05/27/20 23 5:00 PM CDT documented as of this encounter Care Teams Warehouse Laborer Relationship Specialty Start [place] [address] [address] [address] PCP - General Family Medicine 04/22/23 [place] [address] [address] Assigned Pain Medication Provider 12/07/22 [place] [address] [address] [address] Assigned PCP 01/23/23 [place] [address] [place] [address] Assigned Musculoskeletal Provider 01/23/23 Gregorio Dalton PA-C [address] [address] Assigned Surgical Provider 05/22/23 Kingsley Garcia MD [address] [place] [address] Assigned Heart and Vascular Provider 08/07/23 [place] [address] [place] [address] Family Medicine 09/10/23 Master Shea PA-C [address] [place] [address] Physician First Dyer Gastroenterology 09/10/23 Allyssa Justice MD [facility] [address] [address] Hematology & Oncology 12/10/23 Genaro Christian MD [address] [place], [place] [address] Cardiovascular Disease 12/22/23 Master Shea PA-C [address] [place] [address] Assigned Gastroenterology Provider 12/23/23 Sienna Guillermo DO [address] [place] [address] Physician Cardiovascular Disease 01/18/24 documented as of this encounter
--- OUTSIDE RECORDS SUMMARY | 2024-03-25 18:16 | XMS_ITS | Encounter Summary ---
Author Name Unknown Organization [place] Address [facility] [place] [address] Care Team Providers Care Spinner Concrete Pipe Name Role Phone Segundo Mcclelland MD Unavailable [phone] Segundo Mcclelland MD Unavailable [phone] Qamar Jackson MD Unavailable Segundo Mcclelland MD Primary Care Provider + Gregorio Dalton PA-C Unavailable [phone] Kingsley Garcia MD Unavailable [phone] Segundo Mcclelland MD Unavailable [phone] Master Shea PA-C Unavailable Allyssa Justice MD Unavailable [phone] Genaro Christian MD Unavailable [phone] Master Shea-Shirley Unavailable Sienna Guillermo DO Unavailable [phone] Encounter Details Date Type Department Care Team (Latest Contact Info) Description 02/17/2024 Travel Social History Tobacco Use Types Packs/Day [...] Description 05/09/2024 10:00 AM CDT Office Visit [facility] [address] [place] [id number] [place] [address] [place] [address] documented as of this encounter Visit Diagnoses Not on file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 Rule Out COVID-19 02/17/2024 02/17/2024 02/17/2024 5:07 PM CDT Assessment Noted Time PHQ-9 Depression Total Score: 3 05/27/20 23 5:00 PM CDT documented as of this encounter Care Teams Spinner Concrete Pipe Relationship Specialty Start [place] [address] [place] [address] PCP - General Family Medicine 04/22/23 [place] [address] [place] [address] Assigned Pain Medication Provider 12/07/22 [place] [address] [place] [address] Assigned PCP 01/23/23 [place] [address] [place] [address] Assigned Musculoskeletal Provider 01/23/23 Gregorio Dalton PA-C [address] [place] [address] Assigned Surgical Provider 05/22/23 Kingsley Garcia MD [address] [place] [address] Assigned Heart and Vascular Provider 08/07/23 [place] [address] [place] [address] Family Medicine 09/10/23 Master Shea PA-C [address] [place] [address] Physician Police Stenographer Gastroenterology 09/10/23 Allyssa Justice MD [facility] [address] [place] [address] Hematology & Oncology 12/10/23 Genaro Christian MD [address] [place] [address] Cardiovascular Disease 12/22/23 Master Shea PA-C [address] [place] [place] [address] Assigned Gastroenterology Provider 12/23/23 Sienna Guillermo DO [address] [place] [address] Physician Cardiovascular Disease 01/18/24 documented as of this encounter
--- OUTSIDE RECORDS SUMMARY | 2024-03-25 18:16 | XMS_ITS | Encounter Summary ---
Author Name Unknown Organization Lane Address [facility]ly [facility]0 [facility] [place] [address] Care Team Providers Care Reel Cart Operator Name Role Phone Chantelle Virgen MD Unavailable [phone] Chantelle Virgen MD Unavailable [phone] Qamar Jackson MD Unavailable Chantelle Virgen MD Primary Care Provider + Gregorio Dalton PA-C Unavailable [phone] Kingsley Garcia MD Unavailable + [phone] Chantelle Virgen MD Unavailable [phone] Master Shea PA-C Unavailable Allyssa Justice MD Unavailable [phone] Genaro Christian MD Unavailable + [phone] Master Shea-Shirley Unavailable Sienna Guillermo DO Unavailable [phone] Reason for Visit * Reason Onset Date Comments Refill Request 02/23/2024 Encounter Details Date Type Department Care Team (Late st Contact Info) Description 02/23/2024 MyC Refill [facility] [address] [place] [address] [place] [address] [place] [address] Refill Request Social History Tobacco Use Types [...] Telephone Encounter - Sienna Wilder RN - 02/24/2024 1:16 PM CDT Advised via [employer]. * Telephone Encounter - Villa Santamaria PA-C - 02/24/2024 1:07 PM CDT Medrol dosepak sent in. ajp * Telephone Encounter - Villa Santamaria PA-C - 02/24/2024 12:26 PM CDT So this is asking for 2 additional days of (methyl)prednisone? When did she finish the dosepak? It usually lasts 6 days so would have taken last dose today and then see's [facility] tomorrow. Villa * Telephone Encounter - Olga Garcia RN - 02/24/2024 11:[address] Virgen, Did you mean to send Depo-provera injection or is this typo? Can you send in steroid? Also, please see pt's MCM. Routing to PCP to review and advise. Also routing to PCP Villa to send in prednisone in case PCP does not see this message. Olga Garcia RN * Telephone Encounter - Sienna Wilder RN - 02/23/2024 4:13 PM CDT Called the pt to advise of below. 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 She is crying. She said that Dr. Virgen said that someone would always cover for him. She feels like she is being punished. She is being seen on Wednesday by ortho. Advised this has been sent to Dr. Virgen and we are waiting to hear back. She is aware that he is out of the office today. * Telephone Encounter - Sienna Wilder RN - 02/23/2024 4:[address] Benavidez advised she is unable to refill dilaudid. She said the pt recently started on pain meds. She just received 10 dilaudid on 02/21/24. Note not finished from 02/21/24 visit, so she is unsure of what the plan is. Pt will need to wait for pcp to address. Has been sent high priority to Dr. Virgen. * Telephone Encounter - Sienna Wilder RN - 02/23/2024 3:48 PM CDT Has been forwarded to Dr. Virgen, but he is out of the clinic today. Will forward to CRISTY Hanson. * Telephone Encounter - Mercedes Young RN - 02/23/2024 3:08 PM CDT Called patient, I verified that patient will be out of the script written on 02/21/2024 at 10 pm tonight. She needs to know the name of the covering provider who signs this request attached to this encounter. * Telephone Encounter - Suzanne Wetzel RN - 02/23/2024 2:41 PM CDT Please notify patient the name of the approving provider. Patient has to call her insurance and let them know who is authorizing the refill in the absence ofDr. Virgen. Patient is in a lot of pain and insurance closes at 4pm today. (Has appointment with neurosurgeon this Wednesday at 1PM). * Addendum Note - Chantelle Virgen MD - 02/23/2024 2:23 PM CDTAddended by: CHANTELLE VIRGEN on: 02/23/2024 04:48 PM Modules accepted: Orders * Addendum Note - Villa Santamaria PA-C - 02/23/2024 2:23 PM CDTAddended by: VILLA SANTAMARIA on: 02/24/2024 01:08 PM Modules accepted: Orders documented in this encounter Plan of Treatment Upcoming Encounters Date Type Department Care Team (Late st Contact Info) Description 05/09/2024 10:00 AM CDT Office Visit [facility] [address] [facility] [place] [address] [place] [address] [place] [address] documented as of this encounter Visit Diagnoses Diagnosis Acute low back pain with radicular symptoms, duration less than 6 weeks- Primary Pleuritis Pleurisy without mention of effusion or current tuberculosis 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 Assessment Noted Time PHQ-9 Depression Total Score: 4 02/21/20 24 1:54 PM CDT documented as of this encounter Care Teams Reel Cart Operator Relationship Specialty [place] [address] [address] [address] PCP - General Family Medicine 04/22/23 [place] [address] [address] [address] Assigned Pain Medication Provider 12/07/22 [place] [address] [address] [address] Assigned PCP 01/23/23 [place] [address] [address] [place] [address] Assigned Musculoskeletal Provider 01/23/23 Gregorio Dalton PA-C [address] [place] [address] Assigned Surgical Provider 05/22/23 Kingsley Garcia MD [address] [place] [address] Assigned Heart and Vascular Provider 08/07/23 [place] [address] [place] [address] Family Medicine 09/10/23 Master Shea PA-C [address] [place] [address] Physician Child Care Lead Teacher Gastroenterology 09/10/23 Allyssa Justice MD [facility] [address] [place] [address] Hematology & Oncology 12/10/23 Genaro Christian MD [address] [place] [address] Cardiovascular Disease 12/22/23 Master Shea PA-C [address] [place] [address] Assigned Gastroenterology Provider 12/23/23 Sienna Guillermo DO [address] [place] [address] Physician Cardiovascular Disease 01/18/24 documented as of this encounter
--- OUTSIDE RECORDS SUMMARY | 2024-03-25 18:16 | XMS_ITS | Encounter Summary ---
Author Name Unknown Organization [place] Address [facility] [place] [address] Care Team Providers Care Electrical Systems Drafter Name Role Phone Segundo Mcclelland MD Unavailable [phone] Segundo Mcclelland MD Unavailable [phone] Qamar Jackson MD Unavailable Segundo Mcclelland MD Primary Care Provider + Gregorio Dalton PA-C Unavailable [phone] Kingsley Garcia MD Unavailable + [phone] Segundo Mcclelland MD Unavailable [phone] Master Shea PA-C Unavailable Allyssa Justice MD Unavailable [phone] Genaro Christian MD Unavailable [phone] Master Shea-Shirley Unavailable Sienna Guillermo DO Unavailable [phone] Encounter Details Date Type Department Care Team (Latest Contact Info) Description 02/11/2024 Travel Social History Tobacco Use Types Packs/Day [...] Description 05/09/2024 10:00 AM CDT Office Visit [facility] [address] [place] [address] [place] [address] [place] [id number] documented as of this encounter Visit Diagnoses Not on file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 Assessment Noted Time PHQ-9 Depression Total Score: 3 05/27/20 23 5:00 PM CDT documented as of this encounter Care Teams Electrical Systems Drafter Relationship Specialty Start [place] [address] [address] [address] PCP - General Family Medicine 04/22/23 [place] [address] [address] [address] Assigned Pain Medication Provider 12/07/22 [place] [address] [address] [address] Assigned PCP 01/23/23 [place] [address] [address] [place] [address] Assigned Musculoskeletal Provider 01/23/23 Gregorio Dalton PA-C [address] [address] Assigned Surgical Provider 05/22/23 Kingsley Garcia MD [address] [place] [address] Assigned Heart and Vascular Provider 08/07/23 [place] [address] [address] [address] Family Medicine 09/10/23 Master Shea PA-C [address] [place] [address] Physician Refined Syrup Operator Gastroenterology 09/10/23 Allyssa Justice MD [facility] [address] [place] [address] Hematology & Oncology 12/10/23 Genaro Christian MD [address] [place], [place] [address] Cardiovascular Disease 12/22/23 Master Shea PA-C [address] [place] [address] Assigned Gastroenterology Provider 12/23/23 Sienna Guillermo DO [address] [place] [address] Physician Cardiovascular Disease 01/18/24 documented as of this encounter
--- OUTSIDE RECORDS SUMMARY | 2024-03-25 18:17 | XMS_ITS | Encounter Summary ---
Author Name Unknown Organization [place] Address [facility] [place] [address] Care Team Providers Care Quality Assurance Nurse Name Role Phone Segundo Mcclelland MD Unavailable [phone] Segundo Mcclelland MD Unavailable [phone] Qamar Jackson MD Unavailable Segundo Mcclelland MD Primary Care Provider + Gregorio Dalton PA-C Unavailable [phone] Kingsley Garcia MD Unavailable + [phone] Segundo Mcclelland MD Unavailable [phone] Master Shea PA-C Unavailable Allyssa Justice MD Unavailable [phone] Genaro Christian MD Unavailable + [phone] Master Shea-Shirley Unavailable Sienna Guilelrmo DO Unavailable [phone] Reason for Visit * Reason Onset Date Comments Refill Request 02/07/2024 Encounter Details Date Type Department Care Team (Late st Contact Info) Description 02/07/[address] [facility] [address] [place] [address] [place] [address] [place] [address] Refill Request Social History Tobacco Use Types [...] Telephone Encounter - Sienna Wilder RN - 02/07/2024 10:27 AM CDT Called the pt for another issue. She wanted me to send this to Dr. Mcclelland. documented in this encounter Plan of Treatment Upcoming Encounters Date Type Department Care Team (Late st Contact Info) Description 05/09/2024 10:00 AM CDT Office Visit 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 Assessment Noted Time PHQ-9 Depression Total Score: 3 05/27/20 23 5:00 PM CDT documented as of this encounter Care Teams Quality Assurance Nurse Relationship Specialty Start [place] [address] [place] [address] PCP - General Family Medicine 04/22/23 [place] [address] [facility] [place] [address] Assigned Pain Medication Provider 12/07/22 [place] [address] [place] [address] Assigned PCP 01/23/23 [place] [address] [address] [place] [address] Assigned Musculoskeletal Provider 01/23/23 Gregorio Dalton PA-C [address] [address] Assigned Surgical Provider 05/22/23 Kingsley Garcia MD [address] [place] [address] Assigned Heart and Vascular Provider 08/07/23 [place] [address] [place] [address] Family Medicine 09/10/23 Master Shea PA-C [address] [place] [address] Physician Surgical Garment Fitter Gastroenterology 09/10/23 Allyssa Justice MD [facility] [address] [place] [address] Hematology & Oncology 12/10/23 Genaro Christian MD [address] [place], [place] [address] Cardiovascular Disease 12/22/23 Master Shea PA-C [address] [place] [address] Assigned Gastroenterology Provider 12/23/23 Sienna Guillermo DO [address] [place] [address] Physician Cardiovascular Disease 01/18/24 documented as of this encounter
--- OUTSIDE RECORDS SUMMARY | 2024-03-25 18:17 | XMS_ITS | Encounter Summary ---
Author Name Unknown Organization [place] Address [address] [place] [address] Care Team Providers Care Supervisor Uranium Processing Name Role Phone Segundo Mcclelland MD Unavailable [phone] Segundo Mcclelland MD Unavailable [phone] Qamar Jackson MD Unavailable Segundo Mcclelland MD Primary Care Provider + Gregorio Dalton PA-C Unavailable [phone] Kingsley Garcia MD Unavailable + [phone] Segundo Mcclelland MD Unavailable [phone] Master Shea PA-C Unavailable Allyssa Justice MD Unavailable [phone] Genaro Christian MD Unavailable + [phone] Master Shea-Shirley Unavailable Sienna Guillermo DO Unavailable [phone] Allyssa Justice MD Unavailable [phone] Encounter Details Date Type Department Care Team (Late st Contact Info) Description 02/01/2024 [facility] Interventional Radiology [address] [place] [address] Norma Arredondo, RN Social History Tobacco Use Types Packs/Day [...] 10:00 AM CDT Office Visit [facility] [address] [place] [address] [place] [address] [place] [address] documented as of this encounter Visit Diagnoses Not on file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 Rule Out COVID-19 02/17/2024 02/17/2024 02/17/2024 5:07 PM CDT Assessment Noted Time PHQ-9 Depression Total Score: 3 05/27/20 5:00 PM CDT documented as of this encounter Care Teams Supervisor Uranium Processing Relationship Specialty Start [place] [address] [address] [address] PCP - General Family Medicine 04/22/23 [place] [address] [address] [address] Assigned Pain Medication Provider 12/07/22 [place] [address] [address] [address] Assigned PCP 01/23/23 [place] [address] [place] [address] Assigned Musculoskeletal Provider 01/23/23 Gregorio Dalton PA-C [address] [address] Assigned Surgical Provider 05/22/23 Kingsley Garcia MD [address] [place] [address] Assigned Heart and Vascular Provider 08/07/23 [place] [address] [address] [address] Family Medicine 09/10/23 Master Shea PA-C [address] [facility] [place] [address] Physician Cafe Assistant Gastroenterology 09/10/23 Allyssa Justice MD [facility] [address] [place] [address] Hematology & Oncology 12/10/23 Genaro Christian MD [address] [place] [address] Cardiovascular Disease 12/22/23 Master Shea PA-C [address] [place] [address] Assigned Gastroenterology Provider 12/23/23 Sienna Guillermo DO [address] [place] [address] Physician Cardiovascular Disease 01/18/24 Allyssa Justice MD [facility] [address] [place] [address] Assigned Cancer Care Provider 03/21/24 documented as of this encounter
--- OUTSIDE RECORDS SUMMARY | 2024-03-25 18:17 | XMS_ITS | Encounter Summary ---
Author Name Unknown Organization [place] Address [facility] [place] [address] Care Team Providers Care Billing Analyst Name Role Phone Segundo Mcclelland MD Unavailable [phone] Segundo Mcclelland MD Unavailable [phone] Qamar Jackson MD Unavailable Segundo Mcclelland MD Primary Care Provider + Gregorio Dalton PA-C Unavailable [phone] Kingsley Garcai MD Unavailable + [phone] Segundo Mcclelland MD Unavailable [phone] Master Shea PA-C Unavailable Allyssa Justice MD Unavailable [phone] Genaro Christian MD Unavailable + [phone] Master Shea PA-C Unavailable Sienna Guillermo DO Unavailable [phone] Reason for Visit * Therapeutic Imaging/IR (Routine) - Authorized Specialty Diagnoses / Procedures Referred By Contzbigniew t Referred To Contact Radiology. Diagnoses Poor intravenous access Procedures IR Chest Port Placement > 5 Yrs of Age [place] [address] [place] [address] Rh Interventional Rad [address] [place] [address] Referral ID Status Reason Start Date Expiration Date V isits Requested Visits Authorized [id number] Authorized 01/27/2024 01/26/2025 2 2 Encounter Details Date Type Department Care Team (Late st Contact Info) Description 02/04/2024 6:59 AM ALUMNI RELATIONS MANAGER - 02/04/2024 11:00 AM ALUMNI RELATIONS MANAGER Hospital Encounter [facility] [address] [place] [id number] Malia Garrett DO [facility] [address] [place], [place] [address] Donavon Quinones MD [facility] [address] [facility] [address] [place], [place] [address] Poor intravenous access Discharge Disposition: Home or [...] Sign Reading Time Taken Comments Blood Pressure 121/82 02/04/2024 9:45 AM ALUMNI RELATIONS MANAGER Pulse 86 02/04/2024 9:45 AM ALUMNI RELATIONS MANAGER Temperature 36.6 ??C (97.9 ??F) 02/04/2024 7:38 AM CS T Respiratory Rate 20 02/04/2024 9:30 AM ALUMNI RELATIONS MANAGER Oxygen Saturation 100% 02/04/2024 9:45 AM ALUMNI RELATIONS MANAGER Inhaled Oxygen Concentration - - Weight - - Height - - Body Mass Index - - documented in this encounter Discharge Instructions * Discharge Instructions* Kamryn Ashby RN - 02/04/2024 8:37 AM ALUMNI RELATIONS MANAGER Port Placement Procedure Discharge Instructions: You had a port placed. A port is a small biomedical engineering internship that is placed under the skin and [...] #1). Do not scrub site until well healed, pat dry gently with a towel. - [...] port site under water (ex: tub baths, lakes, hot tubs and pools) for 10 daysor until your site is well healed. - [...] than 10 pounds) and strenuous activities for 2-3 days following yourprocedure. - If you experience significant bleeding at site, apply pressure with hands above the clavicle bone, sit upright and seek immediate medical assistance. - Ports need to be flushed approximately every 4 weeks, if not being used more frequently. Follow up with the provider who ordered your port placement for further instructions for this. If you experience the following seek medical evaluation: - Uncontrolled bleeding from port site - Fever (greater than 100??) - Purulent (yellow/green/foul smelling) drainage from port insertion site - Increasing pain at port site - Increasing redness at port site - Increasing swelling INTERVENTIONAL RADIOLOGY DEPARTMENT Procedure Physician: Dr. Garcia Date of procedure: 02/04/2024 Telephone Numbers: [phone] Wednesday-Wednesday 7:30 am to 4:00 pm IF YOU ARE EXPERIENCING A MEDICAL EMERGENCY PLEASE CALL [phone] NI RELATIONS MANAGER documented in this encounter Medications at Time [...] anxiety naloxone (NARCAN) 4 MG/0.1ML nasal spray [place] 4 mg into one nostril alternating nostrils once as needed for opioid reversal 06/28/2023 zolpidem (AMBIEN) 10 MG tablet Take 10 mg by mouth At Bedtime 12/17/2022 HYDROmorphone (DILAUDID) 2 MG tabletIndications:Acut e post-operative pain Take 1 tablet (2 mg) by mouth every 6 hours as needed for pain 6 tablet 02/03/2024 02/05/2024 apixaban ANTICOAGULANT (ELIQUIS) 5 MG tabletIndications:Mult iple subsegmental pulmonary emboli without acute cor pulmonale (H) Take 1 tablet (5 mg) by mouth 2 times daily 180 tablet 1 01/06/2024 03/13/2024 bacitracin 500 UNIT/GM external ointmentIndications:Ul cer of right foot, limited to breakdown of skin (H),Ulcer of right foot, limited to breakdown of skin (H) Apply topically daily Apply daily to the right heel wound, after cleansing and blotting area dry. 30 g 12/08/2023 02/11/2024 HYDROmorphone (DILAUDID) 4 MG tabletIndications:Pleu ritic chest pain Take 0.5 tablets (2 mg) by mouth every 4 hours as needed for severe pain 3 tablet 02/03/2024 02/07/2024 pantoprazole (PROTONIX) 40 MG EC tabletIndications:Jennifer roesophageal reflux disease with esophagitis, unspecified whether hemorrhage Take 1 tablet (40 mg) by mouth 2 times daily (before meals) 180 tablet 1 07/23/2023 03/06/2024 phenazopyridine (PYRIDIUM) 100 MG tablet Take 1 tablet (100 mg) by mouth 3 times daily as needed for urinary tract discomfort 9 tablet 01/08/2024 03/01/2024 documented as of this encounter Progress Notes * Gifty Heller RN - 02/04/2024 10:03 AM CST Post Procedure Summary: Prior to the start of the procedure and with procedural staff participation, I verbally confirmed the patient???s identity using two indicators, relevant allergies, that the procedure was appropriateand matched the consent or emergent situation, and that the correct equipment/implants were available. Immediately prior to starting the procedure I conducted the Time Out with the procedural staff and re-confirmed the patient???s name, procedure, and site/side. (The Joint Commission universal protocol was followed.) Yes Sedatives: Fentanyl and Midazolam (Versed) Vital signs, airway and pulse oximetry were monitored and remained stable throughout the procedure and sedation was maintained until the procedure was complete. The patient was monitored by staff until sedation discharge criteria were met. Patient tolerance: Patient tolerated the procedure well with no immediate complications. Time of sedation in minutes: 20 minutes from beginning to end of physician one to one monitoring. 8 mg versed and 175 mcg fentanyl given. Pt remained fully awake and extremely anxious throughout despite high dose meds. Port placement performed without complication. Pt tolerated procedure well. Post procedure recoverywithout complication. Discharge instructions reviewed with the pt. Pt discharged home. NI RELATIONS MANAGER documented in this encounter Plan of Treatment Upcoming Encounters Date Type Department Care Team (Late st Contact Info) Description 05/09/2024 10:00 AM CDT Office Visit [facility] [address] [place] [address] [place] [address] [place] [address] documented as of this encounter Procedures Procedure Name Priority Date/Time Associated Diagnosis Comments IR CHEST PORT PLACEMENT > 5 YRS OF AGE Routine: Next available opening 02/04/2024 9:18 AM ALUMNI RELATIONS MANAGER Poor intravenous access documented in this encounter Results * IR Chest Port Placement > 5 Yrs of Age (02/04/2024 9:18 AM ALUMNI RELATIONS MANAGER) Anatomical Region Laterality Modality Chest Radio Fluoroscop y, Radio Fluoroscopy Impressions 02/04/2024 4:51 PM ALUMNI RELATIONS MANAGER IMPRESSION: Successful placement of right internal jugular 6 [place] SmartPort and catheter. The port is ready for immediate use. BRADEN GARCIA MD Narrative 02/04/2024 4:51 PM ALUMNI RELATIONS MANAGER PORT PLACEMENT ?? 02/04/2024 9:18 AM INDICATION: [...] a single spot fluoroscopic image. Procedure Note Braden Garcia MD - 02/04/2024 PORT PLACEMENT 02/04/2024 9:18 [...] Successful placement of right internal jugular 6 [place] SmartPort and catheter. The port is ready for immediate use. BRADEN GARCIA MD Segundo Mcclelland MD IMG IR ORDERABLE S documented in this encounter Visit Diagnoses Diagnosis Poor intravenous access Other specified conditions influencing health status documented in this encounter Administered Medications Inactive Administered Medications - up to 3 most recent administrations Medication Order MAR Action Action Date Dose Rate Site ceFAZolin (ANCEF) 2 g in 100 mL D5W intermittent infusion Routine, 2 g, Intravenous, PRE-OP/PRE-PROCEDURE, Starting on Wed02/04/24 at 0744, For 1 dose, Give dose within 1 hour PRIOR to procedure. If patient weight is greater than or equal to 120 kg change dose to 3 g., Indications: Perioperative Pharmacoprophylaxis, IR Pre-procedure fentaNYL (PF) (SUBLIMAZE) injection 25-50 mcg 25-50 mcg, Intravenous, EVERY 5 MIN PRN, severe pain, If inadequate response may repeat 25 mcg IV slowly every 5 min PRN severe pain; when verbally requested by provider., Administer over 2 Minutes, Starting on Wed02/04/24 at 0744, Doses can be exceeded under direct oversight of patient by physician., IR Intra-procedure $Given 02/04/2024 8:54 AM ALUMNI RELATIONS MANAGER 25 mcg $Given 02/04/2024 8:49 AM ALUMNI RELATIONS MANAGER 150 mcg flumazenil (ROMAZICON) injection 0.2 mg 0.2 mg, Intravenous, EVERY 1 MIN PRN, benzodiazepine reversal, If inadequate response after 45 seconds, may repeat 0.2 mg IV every 1 minute PRN oversedation., Administer over 1 Minutes, Starting on Wed02/04/24 at 0744, Give over 15 seconds. Maximum total dose of 1 mg. Continue monitoring until discharge criteria met for a minimum of 2 hours. Irritant. Use with caution in patients on benzodiazepine therapy., IR Intra-procedure heparin 100 unit/mL injection 500 Units 500 Units, Intracatheter, ONCE, On Wed02/04/24 at 0930, For 1 dose $Given 02/04/2024 9:07 AM ALUMNI RELATIONS MANAGER 500 Units lidocaine (LMX4) cream Topical, EVERY 1 HOUR PRN, pain, with VAD insertion, Starting on Wed02/04/24 at 0744, Apply at least 30 minutes prior to [...] mild pain with VAD insertion, Starting on Wed02/04/24 at 0744, MAX dose 1 mL subcutaneous OR intradermal [...] by prescriber during the procedure., Starting on Wed02/04/24 at 0744, For 1 dose, Dose to be divided into smaller volumes appropriate for the procedure. Provider to administer intradermally., IR Intra-procedure $Given 02/04/2024 9:04 AM ALUMNI RELATIONS MANAGER 20 mLs midazolam (VERSED) injection 0.5-2 mg 0.5-2 mg, Intravenous, Administer over 1 Minutes, EVERY 4 MIN PRN, sedation, If inadequate response may repeat 0.5 mg IV slowly every 4 minutes PRN sedation until desired response; when verbally requested by provider., Starting on Wed02/04/24 at 0744, Doses can be exceeded under direct oversight of patient by physician. This drug may cause significant respiratory depression. Monitor respiratory status and vital signs carefully for 1 hour after each dose., IR Intra-procedure $Given 02/04/2024 8:54 AM ALUMNI RELATIONS MANAGER 2 mg $Given 02/04/2024 8:49 AM ALUMNI RELATIONS MANAGER 6 mg naloxone (NARCAN) injection 0.2 mg 0.2 mg, Intravenous, EVERY 2 MIN PRN, opioid reversal, Starting on Wed02/04/24 at 0744, Administer intravenous route when available and notify [...] 2 MIN PRN, opioid reversal, Starting on Wed02/04/24 at 0744, Administer intramuscular if an intravenous route is [...] 2 MIN PRN, opioid reversal, Starting on Wed02/04/24 at 0744, Administer intravenous route when available and notify [...] 2 MIN PRN, opioid reversal, Starting on Wed02/04/24 at 0744, Administer intramuscular if an intravenous route is [...] Intracatheter, EVERY 8 HOURS, First dose on Wed02/04/24 at 0800, to lock peripheral IV dormant line, IR Pre-procedure sodium chloride (PF) 0.9% PF flush 3 mL 3 mL, Intracatheter, EVERY 1 MIN PRN, line flush, other, to ensure patency or to lock dormant line, Starting on Wed02/04/24 at 0744, IR Pre-procedure sodium chloride 0.9 % infusion at 50 mL/hr, Intravenous, CONTINUOUS, IF PATIENT IS RECEIVING RENAL DIALYSIS, RN to reduce rate of 0.9 % sodium chloride IV solution to 10 mL /hour (TKO) IV infusion to prevent fluid overload., IR Pre-procedure, Starting on Wed02/04/24 at 0800, Until Wed02/04/24 at 1535 sodium chloride 0.9% 1000 mL TABLE SOLN 1 Bag, TABLE SOLN, CONTINUOUS PRN, Catheter prep table solution use as directed by provider, Starting on Wed02/04/24 at 0744, For 5 doses, Maximum total dose = 5000 mL. Nurse will document total dose number of bags used at the end of the procedure. NOT A PRESSURE BAG, IR Intra-procedure documented in this encounter Active and Recently Administered Medications Times are shown in ALUMNI RELATIONS MANAGER. Scheduled Medication Order 02/02/2024 02/03/2024 02/04/2024 ceFAZolin (ANCEF) 2 g in 100 mL D5W intermittent infusion Routine, 2 g, Intravenous, PRE-OP/PRE-PROCEDURE, Starting on Wed02/04/24 at 0744, For 1 dose, Give dose within 1 hour PRIOR to procedure. If patient weight is greater than or equal to 120 kg change dose to 3 g., Indications: Perioperative Pharmacoprophylaxis, IR Pre-procedure heparin 100 unit/mL injection 500 Units (COMPLETED) 500 Units, Intracatheter, ONCE, On Wed02/04/24 at 0930, For 1 dose 0907 ($Given - Provi rosita: Gifty Heller RN) sodium chloride (PF) 0.9% PF flush 3 mL 3 mL, Intracatheter, EVERY 8 HOURS, First dose on Wed02/04/24 at 0800, to lock peripheral IV dormant line, IR Pre-procedure 0800 (Canceled Entry - Provider: Orders Generic Provider - Comment: Automatically canceled at discontinue of medication order) Continuous Medication Order 02/02/2024 02/03/2024 02/04/2024 sodium chloride 0.9 % infusion at 50 mL/hr, Intravenous, CONTINUOUS, IF PATIENT IS RECEIVING RENAL DIALYSIS, RN to reduce rate of 0.9 % sodium chloride IV solution to 10 mL /hour (TKO) IV infusion to prevent fluid overload., IR Pre-procedure, Starting on Wed02/04/24 at 0800, Until Wed02/04/24 at 1535 0800 (Canceled Entry - Provider: Orders Generic Provider - Comment: Automatically canceled at discontinue of medication order) PRN Medication Order 02/02/2024 02/03/2024 02/04/2024 fentaNYL (PF) (SUBLIMAZE) injection 25-50 mcg 25-50 mcg, Intravenous, EVERY 5 MIN PRN, severe pain, If inadequate response may repeat 25 mcg IV slowly every 5 min PRN severe pain; when verbally requested by provider., Administer over 2 Minutes, Starting on Wed02/04/24 at 0744, Doses can be exceeded under direct oversight of patient by physician., IR Intra-procedure 0849 ($Given - Provi rosita: Gifty Heller RN)0854 ($Given - Provider: Gifty Heller RN) flumazenil (ROMAZICON) injection 0.2 mg 0.2 mg, Intravenous, EVERY 1 MIN PRN, benzodiazepine reversal, If inadequate response after 45 seconds, may repeat 0.2 mg IV every 1 minute PRN oversedation., Administer over 1 Minutes, Starting on Wed02/04/24 at 0744, Give over 15 seconds. Maximum total dose of 1 mg. Continue monitoring until discharge criteria met for a minimum of 2 hours. Irritant. Use with caution in patients on benzodiazepine therapy., IR Intra-procedure lidocaine (LMX4) cream Topical, EVERY 1 HOUR PRN, pain, with VAD insertion, Starting on Wed02/04/24 at 0744, Apply at least 30 minutes prior to [...] mild pain with VAD insertion, Starting on Wed02/04/24 at 0744, MAX dose 1 mL subcutaneous OR intradermal [...] by prescriber during the procedure., Starting on Wed02/04/24 at 0744, For 1 dose, Dose to be divided into smaller volumes appropriate for the procedure. Provider to administer intradermally., IR Intra-procedure 0904 ($Given - Provi rosita: Gifty Heller RN) midazolam (VERSED) injection 0.5-2 mg 0.5-2 mg, Intravenous, Administer over 1 Minutes, EVERY 4 MIN PRN, sedation, If inadequate response may repeat 0.5 mg IV slowly every 4 minutes PRN sedation until desired response; when verbally requested by provider., Starting on Wed02/04/24 at 0744, Doses can be exceeded under direct oversight of patient by physician. This drug may cause significant respiratory depression. Monitor respiratory status and vital signs carefully for 1 hour after each dose., IR Intra-procedure 0849 ($Given - Provi rosita: Gifty Heller RN)0854 ($Given - Provider: Gifty Heller RN) naloxone (NARCAN) injection 0.2 mg(Linked Group 1) 0.2 mg, Intravenous, EVERY 2 MIN PRN, opioid reversal, Starting on Wed02/04/24 at 0744, Administer intravenous route when available and notify [...] 2 MIN PRN, opioid reversal, Starting on Wed02/04/24 at 0744, Administer intramuscular if an intravenous route is [...] 2 MIN PRN, opioid reversal, Starting on Wed02/04/24 at 0744, Administer intravenous route when available and notify [...] 2 MIN PRN, opioid reversal, Starting on Wed02/04/24 at 0744, Administer intramuscular if an intravenous route is [...] or to lock dormant line, Starting on Wed02/04/24 at 0744, IR Pre-procedure sodium chloride 0.9% 1000 mL TABLE SOLN 1 Bag, TABLE SOLN, CONTINUOUS PRN, Catheter prep table solution use as directed by provider, Starting on Wed02/04/24 at 0744, For 5 doses, Maximum total dose = 5000 mL. Nurse will document total dose number of bags used at the end of the procedure. NOT A PRESSURE BAG, IR Intra-procedure Linked Groups Order Group 1: naloxone (NARCAN) injection 0.2 mgJump to med 0.2 mg, Intravenous, EVERY 2 MIN PRN, opioid reversal, Starting on Wed02/04/24 at 0744, Administer intravenous route when available and notify [...] 2 MIN PRN, opioid reversal, Starting on Wed02/04/24 at 0744, Administer intravenous route when available and notify [...] 2 MIN PRN, opioid reversal, Starting on Wed02/04/24 at 0744, Administer intramuscular if an intravenous route is [...] 2 MIN PRN, opioid reversal, Starting on Wed02/04/24 at 0744, Administer intramuscular if an intravenous route is [...] as of this encounter Care Teams Billing Analyst Relationship Specialty Start [place] [address] [address] [address] PCP - General Family Medicine 04/22/23 [place] [address] [address] [address] Assigned Pain Medication Provider 12/07/22 [place] [address] [place] [address] Assigned PCP 01/23/23 [place] [address] [address] Assigned Musculoskeletal Provider 01/23/23 Gregorio Dalton PA-C [address] 258965 Assigned Surgical Provider 05/22/23 Kingsley Garcia MD [address] [place] [id number] Assigned Heart and Vascular Provider 08/07/23 [place] [address] [place] [address] Family Medicine 09/10/23 Master Shea PA-C [address] [place] [address] Physician Instrumentation Engineering Technician Gastroenterology 09/10/[address] [facility] [address] [address]686[address] Hematology & Oncology 12/10/23 Genaro Christian MD [address] [place], [place] [address] Cardiovascular Disease 12/22/23 Master Shea PA-C [address] [facility] [address] [place] 842189 Assigned Gastroenterology Provider 12/23/23 Sienna Guillermo DO [address] [facility] [address] [place] 896[address] Physician Cardiovascular Disease 01/18/24 documented as of this encounter
--- OUTSIDE RECORDS SUMMARY | 2024-03-25 18:17 | XMS_ITS | Encounter Summary ---
Author Name Unknown Organization [place] Address [facility] [place] [address] Care Team Providers Care Hotel Operation Manager Name Role Phone Segundo Mcclelland MD Unavailable [phone] Segundo Mcclelland MD Unavailable [phone] Qamar Jackson MD Unavailable Segundo Mcclelland MD Primary Care Provider + Gregorio Dalton PA-C Unavailable [phone] Kingsley Garcia MD Unavailable [phone] Segundo Mcclelland MD Unavailable [phone] Master Shea PA-C Unavailable Allyssa Justice MD Unavailable [phone] Genaro Christian MD Unavailable [phone] Master Shea-Shirley Unavailable Sienna Guillermo DO Unavailable [phone] Reason for Visit * Reason Onset Date Comments Medication Request 02/08/2024 Encounter Details Date Type Department Care Team (Late st Contact Info) Description 02/08/2024 Telephone [facility] [address] [place] [address] [place] [address] [place] [address] Medication Request Social History Tobacco Use Types [...] Telephone Encounter - Segundo Mcclelland MD - 02/10/2024 3:33 PM CDT Rx sent 02/08/24 Segundo Mcclelland MD * Telephone Encounter - Sienna Wilder RN - 02/08/2024 1:37 PM CDT Pt calls again. She says she is just miserable. She said that if we wanted the brand name covered, we need to do a prior authorization. She said she was told it could take a week. She wants to know if she should go to the ER or if Dr. Mcclelland can look at this soon. Advised Dr. Mcclelland. He said he will look at it as soon as he can. See e-visit from today also - 02/08/24. * Telephone Encounter - Danyelle Coker RN - 02/08/2024 11:35 AM CDT Patient calling and wondering when Dr. Mcclelland would have a break in his schedule to be able to sendhydromorphone 8 mg RX or she feels she will need to go to ER. Discussed providers do messages as able and do not have assigned times to complete computer work. States she has out of control vomiting from the pain being so bad. States has vomited about 25 times since last night. Discussed ER may be needed if not able to keep anything down and vomiting uncontrollably as she may not be able to keep oral pain med down. States she just puts the pill under her tongue and it dissolves. Advised if she feels she needs ER prior to provider being able to review and advise that would be what she should do. Danyelle Coker RN * Telephone Encounter - Gardenia Thomas - 02/08/2024 10:58 AM CDT Per patient, her pharmacy is out of the HYDROmorphone HCl 4 MG Oral Tablet (DILAUDID). The pharmacydoes have 8mg tablets in stock and advised the patient to ask PCP if the prescription can be updated to reflect 8mg so the tablets can be divided to make the 2mg dose. Please advise if that can be updated and sent to the patient's pharmacy. 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 Assessment Noted Time PHQ-9 Depression Total Score: 3 05/27/20 5:00 PM CDT documented as of this encounter Care Teams Hotel Operation Manager Relationship Specialty Start [place] [address] [address] [address] PCP - General Family Medicine 04/22/23 [place] [address] [place] [address] Assigned Pain Medication Provider 12/07/22 [place] [address] [address] [place] [address] Assigned PCP 01/23/23 [place] [address] [place] [address] Assigned Musculoskeletal Provider 01/23/23 Gregorio Dalton PA-C [address] [address] Assigned Surgical Provider 05/22/23 Kingsley Garcia MD [address] [place] [address] Assigned Heart and Vascular Provider 08/07/23 [place] [address] [address] [address] Family Medicine 09/10/23 Master Shea PA-C [address] [place] [address] Physician Health And Wellness Advisor Gastroenterology 09/10/23 Allyssa Justice MD [facility] [address] [place] [address] Hematology & Oncology 12/10/23 Genaro Christian MD [address] [place] [address] Cardiovascular Disease 12/22/23 Master Shea PA-C [address] [place] [address] Assigned Gastroenterology Provider 12/23/23 Sienna Guillermo DO [address] [place] [address] Physician Cardiovascular Disease 01/18/24 documented as of this encounter
--- OUTSIDE RECORDS SUMMARY | 2024-03-25 18:17 | XMS_ITS | Encounter Summary ---
Author Name Unknown Organization [place] Address [facility] [place] [address] Care Team Providers Care Wire Bound Box Machine Helper Name Role Phone Segundo Mcclelland MD Unavailable [phone] Segundo Mcclelland MD Unavailable [phone] Qamar Jackson MD Unavailable Segundo Mcclelland MD Primary Care Provider + Gregorio Dalton PA-C Unavailable [phone] Kingsley Garcia MD Unavailable + [phone] Segundo Mcclelland MD Unavailable [phone] Master Shea PA-C Unavailable Allyssa Justice MD Unavailable [phone] Genaro Christian MD Unavailable [phone] Master Shea-Shirley Unavailable Sienna Guillermo DO Unavailable [phone] Encounter Details Date Type Department Care Team (Latest Contact Info) Description 02/07/2024 Travel Social History Tobacco Use Types Packs/Day [...] Office Visit [facility] [address] [facility] [place] [address] [place] [address] [place] [id number] documented as of this encounter Visit Diagnoses Not on file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 Assessment Noted Time PHQ-9 Depression Total Score: 3 05/27/20 23 5:00 PM CDT documented as of this encounter Care Teams Wire Bound Box Machine Helper Relationship Specialty [place] [address] [address] [address] PCP - General Family Medicine 04/22/23 [place] [address] [address] [address] Assigned Pain Medication Provider 12/07/22 [place] [address] [address] [address] Assigned PCP 01/23/23 [place] [address] [address] [place] [address] Assigned Musculoskeletal Provider 01/23/23 Gregorio Dalton PA-C [address] [address] Assigned Surgical Provider 05/22/23 Kingsley Garcia MD [address] [place] [address] Assigned Heart and Vascular Provider 08/07/23 [place] [address] [address] [address] Family Medicine 09/10/23 Master Shea PA-C [address] [place] [address] Physician Mother Repairer Gastroenterology 09/10/23 Allyssa Justice MD [facility] [address] [place] [address] Hematology & Oncology 12/10/23 Genaro Christian MD [address] [place], [place] [address] Cardiovascular Disease 12/22/23 Master Shea PA-C [address] [place] [address] Assigned Gastroenterology Provider 12/23/23 Sienna Guillermo DO [address] [place] [address] Physician Cardiovascular Disease 01/18/24 documented as of this encounter
--- OUTSIDE RECORDS SUMMARY | 2024-03-25 18:17 | XMS_ITS | Encounter Summary ---
Author Name Unknown Organization [facility] Address [address] [place] [address] Care Team Providers Care Pusher Runner Name Role Phone Segundo Mcclelland MD Unavailable [phone] Segundo Mcclelland MD Unavailable [phone] Qamar Jackson MD Unavailable Segundo Mcclelland MD Primary Care Provider + Gregorio Dalton PA-C Unavailable [phone] Kingsley Garcia MD Unavailable + [phone] Segundo Mcclelland MD Unavailable [phone] Master Shea PA-C Unavailable Allyssa Justice MD Unavailable [phone] Genaro Christian MD Unavailable Master Shea-Shirley Unavailable Sienna Guillermo DO Unavailable Reason for Visit * Reason Comments Syncope Post-op Problem Encounter Details Date Type Department Care Team (Late st Contact Info) Description 02/07/2024 2:08 AM CDT - 02/07/2024 6:57 AM CDT [facility] Emergency Dept [address] [place] [address] Kingsley Kimble MD [facility] [address] [place], [place] [address] Luz Cazares DO [facility] [address] [place] [address] Syncope, unspecified syncope type; Nausea and vomiting, [...] Sign Reading Time Taken Comments Blood Pressure 132/86 02/07/2024 6:56 AM CDT Pulse 88 02/07/2024 6:56 AM CDT Temperature 36.1 ??C (97 ??F) 02/07/2024 2:07 AM CDT Respiratory Rate 22 02/07/2024 2:07 AM CDT Oxygen Saturation 100% 02/07/2024 6:56 AM CDT Inhaled Oxygen Concentration - - Weight - - Height - - Body Mass Index - - documented in this encounter Discharge Instructions * Discharge Instructions* Kingsley Kimble MD - 02/07/2024 4:50 AM CDT There is no evidence of complication with your port placement including signs of infection, hematoma or abnormal placement. Please continue to treat with your normal pain regimen and follow-up with your primary care team. documented in this encounter Medications at Time [...] anxiety naloxone (NARCAN) 4 MG/0.1ML nasal spray [place] 4 mg into one nostril alternating nostrils [...] blotting area dry. 30 g 12/08/2023 02/11/2024 pantoprazole (PROTONIX) 40 MG EC tabletIndications:Jennifer roesophageal [...] as of this encounter ED Notes * Radha Weaver RN - 02/07/2024 2:05 AM CDT Patient reports multiple symptoms upon triage. She reports recent port placement on Wednesday. She reports increased pain at site. She also reports a syncopal episode this evening in which she had an LOC and hit her head. Patient also endorse N/V since port placement Wednesday. ABCs intact, A&Ox4. Triage Assessment (Adult) Row Name 02/07/24 0205 Triage Assessment Airway WDL WDL Respiratory WDL Respiratory WDL WDL Skin Circulation/Temperature WDL Skin Circulation/Temperature WDL WDL Cardiac WDL Cardiac WDL WDL Peripheral/Neurovascular WDL Peripheral Neurovascular WDL WDL Cognitive/Neuro/Behavioral WDL Cognitive/Neuro/Behavioral WDL WDL * Kingsley Kimble MD - 02/07/2024 1:58 AM CDT History Chief Complaint: Syncope and Post-op Problem HPI Sandi Lopez is a 38 year old female with past medical history of POTS, borderline personality disorder, concern for drug-seeking behavior, depression, insomnia, PTSD, anemia, obesity, GERD, or psychogenic nonepileptic seizures who presents to the emergency department with syncope, nausea, vomiting and right- sided chest pain status post port placement. Patient reports she had her port replaced on Wednesday and since then has had some pain in her right upper chest. She notes the pain has ledto increasing nausea and vomiting. She was sitting over the toilet last night when she had a episode of vomiting which led to episode of syncope. This caused her to hit her head on the toilet. She denies any headache or significant trauma right now. She notes ongoing right-sided chest pain and nausea. She has not been unable to take her home medications secondary to her nausea and vomiting. Review of External Notes: I reviewed the patient's care plan as well and has numerous ER visits. It appears that she has had 12 CT scans since the beginning of the year Medications: acetaminophen (TYLENOL) 325 MG tablet apixaban ANTICOAGULANT (ELIQUIS) 5 MG tablet bacitracin 500 UNIT/GM external ointment childrens multivitamin w/iron (FLINTSTONES COMPLETE) chewable tablet Cholecalciferol (VITAMIN D3) 50 MCG (1999) CAPS diphenhydrAMINE (BENADRYL) 25 MG capsule EPINEPHrine (ANY BX GENERIC EQUIV) 0.3 MG/0.3ML injection 2-pack folic acid (FOLVITE) 1 MG tablet gabapentin (NEURONTIN) 800 MG tablet HYDROmorphone (DILAUDID) 4 MG tablet LORazepam (ATIVAN) 1 MG tablet [...] 05/08/23 Intermittent asthma Kidney stone Kathleen-Mustafa tear Mesenteric [...] Procedure: ESOPHAGOGASTRODUODENOSCOPY; Surgeon: Meg Lee MD; Location: [facility]; Service: ESOPHAGOSCOPY, GASTROSCOPY, DUODENOSCOPY (EGD), COMBINED N/A 02/13/2016 Procedure: ESOPHAGOGASTRODUODENOSCOPY; Surgeon: Meg Lee MD; Location: [facility] OR; Service: ESOPHAGOSCOPY, GASTROSCOPY, DUODENOSCOPY [...] CONTROLLED EPITAXIS; Surgeon: Declan Mata MD; Location: [facility]; Service: OOPHORECTOMY Right Talar fracture lt foot surgery 10/1998 TONSILLECTOMY & ADENOIDECTOMY 1995 TRANSESOPHAGEAL ECHOCARDIOGRAM INTRAOPERATIVE N/A 09/17/2021 Procedure: ECHOCARDIOGRAM, TRANSESOPHAGEAL, INTRAOPERATIVE; Surgeon: GENERIC ANESTHESIA PROVIDER; Location: [facility] OR TUBAL LIGATION Physical Exam Patient Vitals for the past 24 hrs: BP Temp Temp src Pulse Resp SpO2 02/07/24335 -- -- -- 98 -- 100 % 02/07/24334 -- -- -- -- -- 98 % 02/07/24333 103/87 -- -- 98 -- 98 % 02/07/24332 -- -- -- 102 -- 100 % 02/07/24331 -- -- -- 101 -- 100 % 02/07/24330 -- -- -- 108 -- 98 % 02/07/24 033 -- -- -- 107 -- 99 % 02/07/24 032 -- -- -- 100 -- 97 % 02/07/24 0207 (!) 171/109 97 ??F (36.1 ??C) Temporal 116 22 99 % Physical Exam General: Patient is awake, alert Neck: Normal range of motion. CV: Tachycardic but regular. Port present in the right upper chest. Wound is healing appropriately.No signs of fluctuance, cellulitis or significant edema. No palpable tenderness Resp: Lungs are clear without wheezes or rales. No respiratory distress. GI: Abdomen is soft, no rigidity, guarding, or rebound. No distension. No tenderness to palpation in any quadrant. MS: Normal tone. Joints grossly normal without effusions. No asymmetric leg swelling, calf or thightenderness. Skin: No rash or lesions noted. Normal capillary refill noted Neuro: Speech is normal and fluent. Face is symmetric. Moving all extremities. Psych: Normal affect. Appropriate interactions. Emergency Department Course ECG ECG results from 02/07/24 EKG 12-lead, tracing only Value Systolic Blood Pressure Diastolic Blood Pressure Ventricular Rate 111 Atrial Rate 111 VA Interval 160 QRS Duration 68 QT 316 QTc 429 P Drumright 43 R AXIS 16 T Drumright 26 Interpretation ECG Sinus tachycardia Anterior infarct , age undetermined Abnormal ECG When compared with ECG of 29-JAN-2024 21:07, Anterior infarct is now Present *Note: Due to a large number of results and/or encounters for the requested time period, some results have not been displayed. A complete set of results can be found in Results Review. Imaging: Chest CT w/o contrast Final Result IMPRESSION: 1. No complications of port placement are evident. No hematoma or fluid collection. 2. Few small indeterminant pulmonary nodules without [...] the Management of Incidental Pulmonary Nodules Detected atCT: From the Fleischner Society 2017, Radiology 2017. CT Head w/o Contrast Final Result IMPRESSION: 1. No acute intracranial abnormality. Laboratory: Labs Ordered and Resulted from Time of ED Arrival to Time of ED Departure BASIC METABOLIC PANEL - Abnormal Result Value Sodium 138 Potassium 3.6 Chloride 104 Carbon Dioxide (CO2) 24 Anion Gap 10 Urea Nitrogen 9.6 Creatinine 0.60 GFR Estimate >90 Calcium 8.6 Glucose 102 (*) CBC WITH PLATELETS AND DIFFERENTIAL - Abnormal WBC Count 7.3 RBC Count 4.23 Hemoglobin 12.0 Hematocrit 36.4 MCV 86 MCH 28.4 MCHC 33.0 RDW 20.4 (*) Platelet Count 225 % Neutrophils 60 % Lymphocytes 28 % Monocytes 10 % Eosinophils 2 % Basophils 0 % Immature Granulocytes 0 NRBCs per 100 WBC 0 Absolute Neutrophils 4.4 Absolute Lymphocytes 2.0 Absolute Monocytes 0.7 Absolute Eosinophils 0.1 Absolute Basophils 0.0 Absolute Immature Granulocytes 0.0 Absolute NRBCs 0.0 TROPONIN T, HIGH SENSITIVITY - Normal Troponin T, High Sensitivity <6 Emergency Department Course & Assessments: Interventions: Medications HYDROmorphone (DILAUDID) tablet 2 mg (2 mg Oral $Given 02/07/24332) heparin 100 unit/mL injection 5-10 mL (has no administration in time range) sodium chloride 0.9% BOLUS 1,000 mL (1,000 mLs Intravenous $New Bag 02/07/24332) diphenhydrAMINE (BENADRYL) capsule 25 mg (25 mg Oral $Given 02/07/24 033) diphenhydrAMINE (BENADRYL) capsule 25 mg (25 mg Oral $Given 02/07/24 0506) Disposition: The patient was discharged. Impression & Plan Medical Decision Making: Patient is a 38-year-old female who frequently presents to the emergency department with concerns for nausea, vomiting and syncope who presents to the emergency department today with nausea, vomiting, syncope, head trauma and right-sided chest pain. Patient reports she had her port replaced on Wednesday and since then has had some pain in her right upper chest. She notes the pain has led to increasing nausea and vomiting. She was sitting over the toilet last night when she had a episode of vomiting which led to episode of syncope. This caused her to hit her head on the toilet. Upon initial evaluation here she is mildly tachycardic but otherwise hemodynamically stable. On physical exam she doesnot have any notable head trauma on my exam. She complains mostly of pain along the right side of her chest wall where her port has been placed. There is no signs of significant infection overlying the area. Her workup here in the emergency department is very reassuring. Blood work shows no signs of leukocytosis. CT of the chest shows no complication from port placement. CT of the head shows no significant signs of trauma. Patient was treated symptomatically with IV fluids, oral Benadryl and her oral Dilaudid. I reviewed her care plan and care coordination notes. No signs of new acute issue here today requiring further workup or admission. Will discharge patient home with close follow-up with her primary care team. Diagnosis: ICD-10-CM 1. Syncope, unspecified syncope type R55 2. Nausea and vomiting, unspecified vomiting type R11.2 3. Postoperative pain G89.18 MD Shyanne Castillo Christopher Joseph, MD 02/07/24 0603 documented in this encounter Plan of Treatment Upcoming Encounters Date Type Department Care Team (Late st Contact Info) Description 05/09/2024 10:00 AM CDT Office Visit [facility] [address] [place] [address] [place] [address] [place] [address] documented as of this encounter Procedures Procedure Name Priority Date/Time Associated Diagnosis Comments CT CHEST W/O CONTRAST STAT 02/07/2024 4:[address] HEAD W/O CONTRAST STAT 02/07/2024 4:22 AM CDT CBC WITH PLATELETS AND DIFFERENTIAL STAT 02/07/2024 3:23 AM CDT TROPONIN T, HIGH SENSITIVITY STAT 02/07/2024 3:23 AM CDT CBC WITH PLATELETS & DIFFERENTIAL STAT 02/07/2024 3:23 AM CDT BASIC METABOLIC PANEL STAT 02/07/2024 3:23 AM CDT EKG 12-LEAD, TRACING ONLY STAT 02/07/2024 2:20 AM CDT documented in this encounter Results * Chest CT w/o contrast (02/07/2024 4:25 [...] CDT EXAM: CT CHEST W/O CONTRAST LOCATION: [facility] DATE: 02/07/2024 INDICATION: chest pain after recent [...] 02/07/2024 EXAM: CT CHEST W/O CONTRAST LOCATION: [facility] DATE: 02/07/2024 INDICATION: chest pain after recent [...] Head w/o Contrast (02/07/2024 4:22 AM CDT) Anatomical Region Laterality Modality Head, SUBRAD CT NEURO, SUBRA D CT NEURO, UMP CT NEURO, RAD CT Computed Tomography 02/07/2024 4:22 AM CDT Impressions 02/07/2024 4:39 AM CDT IMPRESSION: 1. ??No acute intracranial abnormality. Narrative 02/07/2024 4:39 AM CDT EXAM: CT HEAD W/O CONTRAST LOCATION: [facility] DATE: 02/07/2024 INDICATION: head trauma after syncope [...] 02/07/2024 EXAM: CT HEAD W/O CONTRAST LOCATION: [facility] DATE: 02/07/2024 INDICATION: head trauma after syncope [...] Kimble MD IMG CT OR DERABLES * (ABNORMAL) CBC with platelets and differential (02/07/2024 3:23 AM CDT) WBC Count 7.3 4.0 - 11.0 10e3/uL 02/07/2024 3:29 AM CDT [facility] RBC Count 4.23 3.80 - 5.20 10e6/uL 02/07/2024 3:29 AM CDT [facility] Hemoglobin 12.0 11.7 - 15.7 g/dL 02/07/2024 3:29 AM CDT [facility] Hematocrit 36.4 35.0 - 47.0 % 02/07/2024 3:29 AM CDT [facility] MCV 86 78 - 100 fL 02/07/2024 3:29 AM CDT [facility] MCH 28.4 26.5 - 33.0 pg 02/07/2024 3:29 AM CDT [facility] MCHC 33.0 31.5 - 36.5 g/dL 02/07/2024 3:29 AM CDT [facility] RDW 20.4(H) 10.0 - 15.0 % 02/07/2024 3:29 AM CDT [facility] Platelet Count 225 150 - 450 10e3/uL 02/07/2024 3:29 AM CDT [facility] % Neutrophils 60 % 02/07/2024 3:29 AM CDT [facility] % Lymphocytes 28 % 02/07/2024 3:29 AM CDT [facility] % Monocytes 10 % 02/07/2024 3:29 AM CDT [facility] % Eosinophils 2 % 02/07/2024 3:29 AM CDT [facility] % Basophils 0 % 02/07/2024 3:29 AM CDT [facility] % Immature Granulocytes 0 % 02/07/2024 3:29 AM CDT [facility] NRBCs per 100 WBC 0 <1 /100 024 3:29 AM CDT [facility] Absolute Neutrophils 4.4 1.6 - 8.3 10e3/uL 02/07/2024 3:29 AM CDT [facility] Absolute Lymphocytes 2.0 0.8 - 5.3 10e3/uL 02/07/2024 3:29 AM CDT [facility] Absolute Monocytes 0.7 0.0 - 1.3 10e3/uL 02/07/2024 3:29 AM CDT [facility] Absolute Eosinophils 0.1 0.0 - 0.7 10e3/uL 02/07/2024 3:29 AM CDT [facility] Absolute Basophils 0.0 0.0 - 0.2 10e3/uL 02/07/2024 3:29 AM CDT [facility] Absolute Immature Granulocytes 0.0 <=0.4 10e3/uL 02/07/2024 3:29 AM CDT [facility] Absolute NRBCs 0.0 10e3/uL 02/07/2024 3:29 AM CDT [facility] Blood BLOOD SPECIMEN / Unknown Venipuncture / Unknown 02/07/2024 3:23 AM CDT 02/07/2024 3:25 AM CDT Kingsley Kimble MD LAB - BLO OD ORDERABLES [facility] Acute Care Lab [address] (1st floor, no room number) [place] [address], [facility] [[email or web address]] [phone] * Troponin T, High Sensitivity (02/07/2024 3:23 AM CDT) Pathologist [facility] Troponin T, High Sensitivity <6 <=14 ng/L 02/07/2024 3:48 AM CDT [facility] Comment: Either a High Sensitivity Troponin [...] follow-up, or urgent outpatient provocative testing. Blood BLOOD SPECIMEN / Unknown Venipuncture / Unknown 02/07/2024 3:23 AM CDT 02/07/2024 3:25 AM CDT Kingsley Kimble MD LAB - BLO OD ORDERABLES [facility] Acute Care Lab [address] [facility] Lab (1st floor, no room number) [place] [address], [facility] [[email or web address]] [phone] * (ABNORMAL) Basic metabolic panel (02/07/2024 3:23 AM CDT) Pathologist [facility] Sodium 138 135 - 145 mmol/L 02/07/2024 3:48 AM CDT [facility] Comment:Reference intervals for this test were updated on 08/24/2023 to more accurately reflect our healthy population. There may be differences in the flagging of prior results with similar values performed with this method. Interpretation of those prior results can be made in the context of the updated reference intervals. Potassium 3.6 3.4 - 5.3 mmol/L 02/07/2024 3:48 AM CDT LABORATORY Chloride 104 98 - 107 mmol/L 02/07/2024 3:48 AM CDT LABORATORY Carbon Dioxide (CO2) 24 22 - 29 mmol/L 02/07/2024 3:48 AM CDT LABORATORY Anion Gap 10 7 - 15 mmol/L 02/07/2024 3:48 AM CDT LABORATORY Urea Nitrogen 9.6 6.0 - 20.0 mg/dL 02/07/2024 3:48 AM CDT LABORATORY Creatinine 0.60 0.51 - 0.95 mg/dL 02/07/2024 3:48 AM CDT LABORATORY GFR Estimate >90 >60 mL/min/1. 73m2 02/07/2024 3:48 AM CDT LABORATORY Calcium 8.6 8.6 - 10.0 mg/dL 02/07/2024 3:48 AM CDT LABORATORY Glucose 102(H) 70 - 99 mg/dL 02/07/2024 3:48 AM CDT LABORATORY Blood BLOOD SPECIMEN / Unknown Venipuncture / Unknown 02/07/2024 3:23 AM CDT 02/07/2024 3:25 AM CDT Kingsley Kimble MD LAB - BLO OD ORDERABLES [facility] Acute Care Lab [address] [facility] Lab (1st floor, no room number) [place] [address], [facility] [[email or web address]] [phone] * EKG 12-lead, tracing only (02/07/2024 2:20 AM CDT) Systolic Blood Pressure mmHg RADIOLOGY RESULTS Diastolic Blood Pressure mmHg RADIOLOGY RESULTS Ventricular Rate 111 BPM RAD IOLOGY RESULTS Atrial Rate 111 BPM RADIOLOG Y RESULTS VA Interval 160 ms RADIOLOG Y RESULTS QRS Duration 68 ms RADIOLO GY RESULTS QT 316 ms RADIOLOGY RESULTS QTc 429 ms RADIOLOGY RESULTS P Drumright 43 degrees RADIOLOGY RESULTS R AXIS 16 degrees RADIOLOGY RESULTS T Drumright 26 degrees RADIOLOGY RESULTS Interpretation ECG Sinus tachycardia Anterior infarct , age undetermined Abnormal ECG When compared with ECG of 29-JAN-2024 21:07, Anterior infarct is now Present Confirmed by - EMERGENCY ROOM, PHYSICIAN ([id number]), associate editor VALENTE BROWNING (Jessica) on 02/07/2024 6:39:26 AM RADIOLOGY RESULTS 02/07/2024 2:20 AM CDT 02/07/2024 6:39 AM CDT Kingsley Kimble MD ECG ORDER [facility] RADIOLOGY RESULTS documented in this encounter Visit Diagnoses Diagnosis Syncope, unspecified syncope type Nausea and vomiting, unspecified vomiting type Postoperative pain Other acute postoperative pain documented in this encounter Administered Medications Inactive Administered Medications - up to 3 most recent administrations Medication Order MAR Action Action Date Dose Rate Site diphenhydrAMINE (BENADRYL) capsule 25 mg 25 mg, Oral, ONCE, On Wed02/07/24 at 0240, For 1 dose $Given 02/07/2024 3:33 AM CDT 25 mg diphenhydrAMINE (BENADRYL) capsule 25 mg 25 mg, Oral, ONCE, On Wed02/07/24 at 0505, For 1 dose $Given 02/07/2024 5:06 AM CDT 25 mg heparin 100 unit/mL injection 5-10 mL 5-10 mL, Intracatheter, EVERY 28 DAYS, First dose on Wed02/07/24 at 0555, To de-access each port in dual implanted port. Flush with 10 mL NS sodium chloride 0.9% flush followed by 5 mL heparin (100 units/mL) at discharge and at least every 28 days. MAX: 5 mL per each port lumen $Given 02/07/2024 6:47 AM CDT 5 mLs HYDROmorphone (DILAUDID) tablet 2 mg 2 mg, Oral, EVERY 3 HOURS PRN, moderate pain, Starting on Wed02/07/24 at 0238 $Given 02/07/2024 6:18 AM CDT 2 mg $Given 02/07/2024 3:33 AM CDT 2 mg sodium chloride 0.9% BOLUS 1,000 mL Intravenous, 1,000 mL, ONCE, at 1,000 mL/hr, Administer over 1 Hours, On Wed02/07/24 at 0215, For 1 dose $New Bag 02/07/2024 3:33 AM CDT 1,000 mLs 1000 mL/hr documented in this encounter Active and Recently Administered Medications Due to Daylight Saving Time, this section may contain times in both [employer] and CDT. Scheduled Medication Order 02/05/2024 02/06/2024 02/07/2024 diphenhydrAMINE (BENADRYL) capsule 25 mg (COMPLETED) 25 mg, Oral, ONCE, On Wed02/07/24 at 0240, For 1 dose 0333 ($Given - Provi rosita: Flo Rao RN) diphenhydrAMINE (BENADRYL) capsule 25 mg (COMPLETED) 25 mg, Oral, ONCE, On Wed02/07/24 at 0505, For 1 dose 0506 ($Given - Provi rosita: Flo Rao RN) heparin 100 unit/mL injection 5-10 mL 5-10 mL, Intracatheter, EVERY 28 DAYS, First dose on Wed02/07/24 at 0555, To de-access each port in dual implanted port. Flush with 10 mL NS sodium chloride 0.9% flush followed by 5 mL heparin (100 units/mL) at discharge and at least every 28 days. MAX: 5 mL per each port lumen 0647 ($Given - Provi rosita: Hoa Smith RN) sodium chloride 0.9% BOLUS 1,000 mL (COMPLETED) Intravenous, 1,000 mL, ONCE, at 1,000 mL/hr, Administer over 1 Hours, On Wed02/07/24 at 0215, For 1 dose 0333 ($New Bag - Pro vider: Flo Rao RN)[phone] (Stopped - Provider: Hoa Smith RN) PRN Medication Order 02/05/2024 02/06/2024 02/07/2024 HYDROmorphone (DILAUDID) tablet 2 mg 2 mg, Oral, EVERY 3 HOURS PRN, moderate pain, Starting on Wed02/07/24 at 0238 0333 ($Given - Provi rosita: Flo Rao RN)0618 ($Given - Provider: Hoa Smith, DONNA) 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 Assessment Noted Time PHQ-9 Depression Total Score: 3 05/27/20 23 5:00 PM CDT documented as of this encounter Care Teams Pusher Runner Relationship Specialty Start [place] [address] [place] [address] PCP - General Family Medicine 04/22/23 [place] [address] [place] [address] Assigned Pain Medication Provider 12/07/22 [place] [address] [place] [address] Assigned PCP 01/23/23 [place] [address] [place] [address] Assigned Musculoskeletal Provider 01/23/23 Gregorio Dalton PA-C [address] [place] [address] Assigned Surgical Provider 05/22/23 Kingsley Garcia MD [address] [place] [address] Assigned Heart and Vascular Provider 08/07/23 [place] [address] [place] [address] Family Medicine 09/10/23 Master Shea PA-C [address] [place] [address] Physician Rotary Saw Operator Gastroenterology 09/10/23 Allyssa Justice MD [facility] [address] [place] [address] [place] [address] Hematology & Oncology 12/10/23 Genaro Christian MD [address] [place] [address] Cardiovascular Disease 12/22/23 Master Shea PA-C [address] [place] [address] Assigned Gastroenterology Provider 12/23/23 Sienna Guillermo DO [address] [place] [address] Physician Cardiovascular Disease 01/18/24 documented as of this encounter
--- OUTSIDE RECORDS SUMMARY | 2024-03-25 18:17 | XMS_ITS | Encounter Summary ---
Author Name Unknown Organization [place] Address [address] [place] [address] Care Team Providers Care Hedge Trimmer Name Role Phone Segundo Mcclelland MD Unavailable [phone] Segundo Mcclelland MD Unavailable [phone] Qamar [place] MD Unavailable Segundo Mcclelland MD Primary Care Provider + Gregorio Dalton PA-C Unavailable [phone] Kingsley Garcia MD Unavailable + [phone] Segundo Mcclelland MD Unavailable [phone] Master Shea PA-C Unavailable Allyssa Justice MD Unavailable [phone] Genaro Christian MD Unavailable + [phone] Master Shea-Shirley Unavailable Sienna Guillermo DO Unavailable +[phone] Reason for Visit * Reason Comments Home Infusion Encounter Details Date Type Department Care Team (Late st Contact Info) Description 02/03/2024 Home Infusion (pre-[facility]) [facility] [address] [place] [address] Opal Bustillos [facility] [address] [place] [address] Home Infusion Social History Tobacco Use Types [...] as of this encounter Progress Notes * Elizabeth Winter - 02/03/2024 12:23 PM CSTSummary: Home Infuison Referral Therapy: IVF Insurance: [facility] restricted program An authorization must be obtained prior to the start of therapy. If approved patient would be covered at 100%. In reference to referral from Emily Wilder [facility]. Please contact Intake with any questions, or In Basket pool, [facility] ([id number]). 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 Assessment Noted Time PHQ-9 Depression Total Score: 3 05/27/20 5:00 PM CDT documented as of this encounter Care Teams Hedge Trimmer Relationship Specialty Start [place] [address] [address] [place] [address] PCP - General Family Medicine 04/22/23 [place] [address] [address] [place] [address] Assigned Pain Medication Provider 12/07/22 [place] [address] [place] [address] Assigned PCP 01/23/23 [place] [address] [address] [place] [address] Assigned Musculoskeletal Provider 01/23/23 Gregorio Dalton PA-C [address] [address] Assigned Surgical Provider 05/22/23 Kingsley Garcia MD [address] [place] [address] Assigned Heart and Vascular Provider 08/07/23 [place] [address] [place] [address] Family Medicine 09/10/23 Master Shea PA-C [address] [place] [address] Physician Java Application Developer Gastroenterology 09/10/23 Allyssa Justice MD [facility] [address] [address] [place] [address]1485 Hematology & Oncology 12/10/23 Genaro Christian MD [address] [place], [place] [address] Cardiovascular Disease 12/22/23 Master Shea PA-C [address] [place] [address] Assigned Gastroenterology Provider 12/23/23 Sienna Guillermo DO [address] [place] [address] Physician Cardiovascular Disease 01/18/24 documented as of this encounter
--- OUTSIDE RECORDS SUMMARY | 2024-03-25 18:17 | XMS_ITS | Encounter Summary ---
Author Name Unknown Organization [place] Address [address] [facility] [place] [address] Care Team Providers Care Customer Operations Associate Name Role Phone Segundo Mcclelland MD Unavailable [phone] Segundo Mcclelland MD Unavailable +[phone] Qamar [place] MD Unavailable Segundo Mcclelland MD Primary Care Provider + Gregorio Dalton PA-C Unavailable +[phone] Kingsley Garcia MD Unavailable +- [phone] Segundo Mcclelland MD Unavailable [phone] Master Shea PA-C Unavailable Allyssa Justice MD Unavailable [phone] Genaro Christian MD Unavailable [phone] Master Shea-Shirley Unavailable Sienna Guillermo DO Unavailable +[phone] Encounter Details Date Type Department Care Team (Late st Contact Info) Description 01/31/2024 [facility] [address] [place] [address] [place] [address] [place] [address] Social History Tobacco Use Types [...] Telephone Encounter - Sienna Wilder RN - 02/01/2024 2:00 PM HEAD OF BIOLOGY Request for Amendment of the Medical Record form on the [facility] in the triage office. Waiting to see how the pt wants to get the form. 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 Assessment Noted Time PHQ-9 Depression Total Score: 3 05/27/20 23 5:00 PM CDT documented as of this encounter Care Teams Customer Operations Associate Relationship Specialty Start [place] [address] [place] [address] PCP - General Family Medicine 04/22/23 [place] [address] [place] [address] Assigned Pain Medication Provider 12/07/22 [place] [address] [place] [address] Assigned PCP 01/23/23 [place] [address] [address] [place] [place] [address] Assigned Musculoskeletal Provider 01/23/23 Gregorio Dalton PA-C [address] [address] Assigned Surgical Provider 05/22/23 Kingsley Garcia MD [address] [place] [address] Assigned Heart and Vascular Provider 08/07/23 [place] [address] [address] [place] [address] Family Medicine 09/10/23 Master Shea PA-C [address] [place] [address] Physician Supervisor Jewelry Department Gastroenterology 09/10/23 Allyssa Justice MD [facility] [address] [place] [address] Hematology & Oncology 12/10/23 Genaro Christian MD [address] [place] [address] Cardiovascular Disease 12/22/23 Master Shea PA-C [address] [place] [address] Assigned Gastroenterology Provider 12/23/23 Sienna Guillermo DO [address] [place] [address] Physician Cardiovascular Disease 01/18/24 documented as of this encounter
--- OUTSIDE RECORDS SUMMARY | 2024-03-25 18:17 | XMS_ITS | Encounter Summary ---
Author Name Unknown Organization [place] Address [address] [facility] [address] Care Team Providers Care Senior Director Insight Name Role Phone Segundo Mcclelland MD Unavailable [phone] Segundo Mcclelland MD Unavailable +[phone] Qamar [place] MD Unavailable Segundo Mcclelland MD Primary Care Provider + Gregorio Dalton PA-C Unavailable +[phone] Kingsley Garcia MD Unavailable +[phone] Segundo Mcclelland MD Unavailable [phone] Master Shea PA-C Unavailable Allyssa [place] MD Unavailable [phone] Genaro Christian MD Unavailable [phone] Master Shea-Shirley Unavailable Sienna Guillermo DO Unavailable [phone] Encounter Details Date Type Department Care Team (Late st Contact Info) Description 02/04/2024 [facility] [address] [place] [address] [place] [address] [place] [address] Social History Tobacco Use Types [...] Telephone Encounter - Alexandria Forrest RN - 02/04/2024 2:26 PM CST Please see MC and advise. Ok to wait for 02/14/24 appt to discuss? 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 Assessment Noted Time PHQ-9 Depression Total Score: 3 05/27/20 23 5:00 PM CDT documented as of this encounter Care Teams Senior Director Insight Relationship Specialty Start [place] [address] [place] [address] PCP - General Family Medicine 04/22/23 [place] [address] [place] [address] Assigned Pain Medication Provider 12/07/22 [place] [address] [place] [address] Assigned PCP 01/23/23 [place] [address] [address] [place] [address] Assigned Musculoskeletal Provider 01/23/23 Gregorio Dalton PA-C [address] [address] Assigned Surgical Provider 05/22/23 Kingsley Garcia MD [address] [place] [address] Assigned Heart and Vascular Provider 08/07/23 [place] [address] [address] [place] [place] [address] Family Medicine 09/10/23 Master Shea PA-C [address] [place] [address] Physician Panel Saw Operator Gastroenterology 09/10/23 Allyssa Justice MD [facility] [address] [place] [address]104[address] Hematology & Oncology 12/10/23 Genaro Christian MD [address] [place] [address] Cardiovascular Disease 12/22/23 Master Shea PA-C [address] [place] [address] Assigned Gastroenterology Provider 12/23/23 Sienna Guillermo DO [address] [place] [address] Physician Cardiovascular Disease 01/18/24 documented as of this encounter
--- OUTSIDE RECORDS SUMMARY | 2024-03-25 18:17 | XMS_ITS | Encounter Summary ---
Author Name Unknown Organization [place] Address [facility] [place] [place] [address] Care Team Providers Care Repairer Finished Metal Name Role Phone Chantelle Virgen MD Unavailable [phone] Chantelle Virgen MD Unavailable [phone] Qamar [place] MD Unavailable Chantelle Virgen MD Primary Care Provider + Gregorio Dalton PA-C Unavailable [phone] Kingsley Garcia MD Unavailable + [phone] Chantelle Virgen MD Unavailable [phone] Master Shea PA-C Unavailable Allyssa Justice MD Unavailable [phone] Genaro Christian MD Unavailable [phone] Master Shea-C Unavailable Sienna Guillermo DO Unavailable [phone] Reason for Visit * Reason Comments Other Entered automaticall y based on patient selection in [employer]. Encounter Details Date Type Department Care Team (Late st Contact Info) Description 02/08/2024 11:30 AM CDT E-Visit [facility] [address] [place] [address] [place] [address] [place] [address] Other (Entered automatically based on ngozi... Social [...] Encounter - Sienna Wilder RN - 02/08/2024 1:35 PM CDT Provider E-Visit time total (minutes): 10 * Addendum Note - Chantelle Virgen MD - 02/08/2024 11:30 AM CDTAddended by: CHANTELLE VIRGEN on: 02/11/2024 02:19 PM Modules accepted: Orders documented in this encounter Plan of Treatment Upcoming Encounters Date Type Department Care Team (Late st Contact Info) Description 05/09/2024 10:00 AM CDT Office Visit [facility] [place] [address] [place] [address] [place] [address] [place] [address] documented as of this encounter Visit Diagnoses Diagnosis Pleuritic chest pain Painful respiration 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 Assessment Noted Time PHQ-9 Depression Total Score: 3 05/27/20 5:00 PM CDT documented as of this encounter Care Teams Repairer Finished Metal Relationship Specialty [place] [address] [place] [address] PCP - General Family Medicine 04/22/23 [place] [address] [address] [address] Assigned Pain Medication Provider 12/07/22 [place] [address] [place] [address] Assigned PCP 01/23/23 [place] [address] [address] [place] [place] [address] Assigned Musculoskeletal Provider 01/23/23 Gregorio Dalton PA-C [address] [address] Assigned Surgical Provider 05/22/23 Kingsley Garcia MD [address] [place] [address] Assigned Heart and Vascular Provider 08/07/23 [place] [address] [place] [address] Family Medicine 09/10/23 Master Shea PA-C [address] [place] [address] Physician Conference Producer Gastroenterology 09/10/23 Allyssa Justice MD [facility] [address] [place] [address] Hematology & Oncology 12/10/23 Genaro Christian MD [address] [place] [address] Cardiovascular Disease 12/22/23 Master Shea PA-C [address] [place] [address] Assigned Gastroenterology Provider 12/23/23 Sienna Guillermo DO [address] [place] [address] Physician Cardiovascular Disease 01/18/24 documented as of this encounter
--- OUTSIDE RECORDS SUMMARY | 2024-03-25 18:17 | XMS_ITS | Encounter Summary ---
Author Name Unknown Organization [place] Address [address] [place] [address] Care Team Providers Care Pot Tender Name Role Phone Chantelle Virgen MD Unavailable [phone] Chantelle Virgen MD Unavailable [phone] Qamar [place] MD Unavailable Chantelle Virgen MD Primary Care Provider + Gregorio Dalton PA-C Unavailable [phone] Kingsley Garcia MD Unavailable + [phone] Chantelle Virgen MD Unavailable [phone] Master Shea PA-C Unavailable Allyssa Justice MD Unavailable [phone] Genaro Christian MD Unavailable [phone] Master Shea-C Unavailable Sienna Guillermo DO Unavailable [phone] Reason for Visit * Reason Comments Other Entered automaticall y based on patient selection in [employer]. Encounter Details Date Type Department Care Team (Late st Contact Info) Description 02/03/2024 3:35 AM MANAGER HOSPITALITY E-Visit [facility] [address] [place] [address] [place] [address] [place] [id number] Other (Entered automatically based on ngozi... Social [...] Encounter - Sienna Wilder RN - 02/08/2024 8:[address] Virgen reviewed and signed the treatment plan. Called the infusion center and they said they received orders. Called the pt and advised to call to schedule - [phone]. Advised the pt that once she scheduled, I was told then they do a prior auth to make sure covered by insurance. Also advised to make sure if they need any further orders for flushing her line they let us know. * Telephone Encounter - Sienna Wilder RN - 02/07/2024 11:27 AM CDT Therapy plan has been pended for provider to review. * Telephone Encounter - Sienna Wilder RN - 02/07/2024 11:04 AM CDT Was directed to where therapy plan is ordered under admit therapy. * Telephone Encounter - Sienna Wilder RN - 02/07/2024 10:36 AM CDT Worked with IT to see where the therapy plan gets ordered. * Telephone Encounter - Sienna Wilder RN - 02/07/2024 10:24 AM CDT Called the pt to see what she thinks she could do. She said it would be difficult to get to [place], but she could try if needed. [place] would be a lot easier. Advised I will check into [place] then. Pt is aware it may be a little hard to schedule at the beginning, but hopefully it will get easier. * Telephone Encounter - Sienna Wilder RN - 02/07/2024 10:21 AM CDT Spoke to Dr. Virgen. He advised to see what the pt can do. If she can go to [place] to [facility] where the mail order pharmacy is, infusion center, etc, lets start there. If not, see if the pt would be able to go to the out infusion center in [place]. If not, then we can see if [facility] would work. * Telephone Encounter - Sienna Wilder RN - 02/07/2024 8:57 AM CDT Reached out to Amy Montes De Oca, Net Developer With [employer] to see if she has ever used home infusion outside [facility]. She said she has not. Called [facility] per [employer] - [phone]. Spoke to Brittnee. She adivsed that Dr. Virgen could send over orders - needs to include the type of fluids, amount needed, how many times per week, rate of infusion and the end date. They would also need a face sheet and office visit notes - she said it would need to indicate what is needed. She said we could try sending the last virtual visit. Then fax all of that to [phone]. Will forward to Dr. Virgen to see what route he would like to try. See below also regarding outpt infusion. * Telephone Encounter - Sienna Wilder RN - 02/07/2024 8:25 AM CDT Called the [facility] - outpt infusion therapy at [phone]. Spoke to Nayan. She said they do IV fluids. The number for the [facility] center and infusion center is [phone]. Called and spoke to Ekta. She said Dr. Virgen would need to place orders for a therapy plan. The pt then needs to call to schedule an appt. It will be a little difficult at first because they are pretty full and need to check with the charge nurse for every appt. Once she gets going, she would schedule appts in advance. After an appt is scheduled, then prior auth done to see if insurance will cover, that happens afterthe appt is made. * Telephone Encounter - Chantelle Virgen MD - 02/07/2024 7:51 AM CDT Traveling to [place] is simply not something the patient can do. She will need something in theestcourt station. * Telephone Encounter - Olga Garcia RN - 02/04/2024 10:08 AM CST Arcelia called back. States the DON would like pt to start at the infusion suite as planned with thepossibility of home infusion after reassessing patient . States pt has had several port infections in the past therefore prefer to start at the infusion center to minimize risk of infection. Olga Garcia RN GER HOSPITAL[facility] * Telephone Encounter - Olga Garcia RN - 02/04/2024 9:54 AM CST Called [facility] and spoke with DONNA Paniagua. Advised of provider message below. Arcelia will check with her supervisor data processing and call us back with update if they are willing to see pt ather home. Olga Garcia RN GER HOSPITAL[facility] * Telephone Encounter - Chantelle Virgen MD - 02/03/2024 3:46 PM MANAGER HOSPITALITY Are there options for home infusion? Is it possible to get [facility] to reassess her home since she now has professional housekeeping? Chantelle Virgen MD [facility]ER HOSPITAL[facility] * Telephone Encounter - Olga Garcia RN - 02/03/2024 1:40 PM CST Pt called. States she sent Dr. Virgen a message via [employer] and wanted to make sure he reads it. Pt also inquiring about med dose change. Dilaudid 4 mg. Olga W Waritu, RN GER HOSPITALITY * Telephone Encounter - Sienna Wilder RN - 02/03/2024 12:27 PM MANAGER HOSPITALITY Received a call Airel from Home Infusion intake benefits. It is an option - coverage would be 100 percent if an authorizaton was approved. They would need an authorization because she is on a restricted program plan. The pt would have to go to [address] [place] [address], [email or web address] [email or web address]. They have a prior authorization team that could work on that. Orders would need to be sent over if we want to go ahead with this or she thinks we could do a verbal order again. Dr. Virgen was advised. GER HOSPITALITY * Telephone Encounter - Sienna Wilder RN - 02/03/2024 10:23 AM MANAGER HOSPITALITY Vero calls back. She advised - We are not able to accept pt on service for in home IV therapy. Her home is not suitable for our RNs to manage home infusion in her home. They have an infusion suite. She will put a message in to see if they could see her there. Vero calls back. They can see her at the infusion suite. She is sending this to the benefits team to see if she has coverage. The benefits team will call us. She said once the benefits team reaches out to us then we can let the provider know. If they do it there, it is under home infusion benefits. They are in [place] on [facility]. GER HOSPITALITY * Telephone Encounter - Sienna Wilder RN - 02/03/2024 8:35 AM MANAGER HOSPITALITY Spoke to Dr. Virgen. He would like to have the pt set up for home infusion IV fluids whatever she was getting before. Called the Infusion Center at [phone], spoke with Vero. Advised Vero that Dr. Virgen would like her to go back on what she was getting before for IV fluids now that her port was reset. Vero transferred me to the pharmacy - spoke with Beck. Advised Beck and then he was going to transfer me to a pharmacist - was transferred to [place]. She wants to speak to Vero again. Vero advised there is a note in the pts chart - She has a note that [facility] Either someone from nursing or benefits will call me back about this. See telephone call from 08/03/23 for previous orders. GER HOSPITALITY * Telephone Encounter - Chantelle Virgen MD - 02/03/2024 8:20 AM MANAGER HOSPITALITY Provider E-Visit time total (minutes): 60 * Addendum Note - Chantelle Virgen MD - 02/03/2024 3:35 AM CSTAddended by: CHANTELLE VIRGEN on: 02/08/2024 08:23 AM Modules accepted: Orders documented in this encounter Plan of Treatment Upcoming Encounters Date Type Department Care Team (Late st Contact Info) Description 05/09/2024 10:00 AM CDT Office Visit 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 Assessment Noted Time PHQ-9 Depression Total Score: 3 05/27/20 5:00 PM CDT documented as of this encounter Care Teams Pot Tender Relationship Specialty Start [place] [address] [place] [address] PCP - General Family Medicine 04/22/23 [place] [address] [place] [address] Assigned Pain Medication Provider 12/07/22 [place] [address] [place] [address] Assigned PCP 01/23/23 [place] [address] [place] [address] Assigned Musculoskeletal Provider 01/23/23 Gregorio Dalton PA-C [address] [place] [address] Assigned Surgical Provider 05/22/23 Kingsley Garcia MD [address] [place] [address] Assigned Heart and Vascular Provider 08/07/23 [place] [address] [place] [address] Family Medicine 09/10/23 Master Shea PA-C [address] [place] [address] Physician Line Runner Gastroenterology 09/10/23 Allyssa Justice MD [facility] [address] [place] [address] Hematology & Oncology 12/10/23 Genaro Christian MD [address] [place] [address] Cardiovascular Disease 12/22/23 Master Shea PA-C [address] [place] [address] Assigned Gastroenterology Provider 12/23/23 Sienna Guillermo DO [address] [place] [address] Physician Cardiovascular Disease 01/18/24 documented as of this encounter
--- OUTSIDE RECORDS SUMMARY | 2024-03-25 18:17 | XMS_ITS | Encounter Summary ---
Author Name Unknown Organization [facility] Address [facility] [place] [address] Care Team Providers Care Machine Stripper Name Role Phone Chantelle Virgen MD Unavailable [phone] Chantelle Virgen MD Unavailable [phone] Qamar Jackson MD Unavailable Chantelle Virgen MD Primary Care Provider + Gregorio Dalton PA-C Unavailable [phone] Kingsley Garcia MD Unavailable + [phone] Chantelle Virgen MD Unavailable [phone] Master Shea PA-C Unavailable Allyssa Justice MD Unavailable [phone] Genaro Christian MD Unavailable + [phone] Master Shea-Shirley Unavailable Sienna Guillermo DO Unavailable [phone] Reason for Visit * Reason Onset Date Comments Refill Request 02/03/2024 Encounter Details Date Type Department Care Team (Late st Contact Info) Description 02/03/2024 MyC Refill [facility] [address] [place] [address] [place] [address] [place] [address] Refill Request Social History Tobacco Use Types [...] Encounter - Olga Garcia RN - 02/03/2024 8:46 AM CST Pt calls. [facility] pharmacy does not have 2 mg Dilaudid in stock. Pt would like 4 mg so she can take half of tablet. Called pharmacy and confirmed that they do not have 2mg in stock. Routing to PCP to review and advise. Olga Garcia, RN ER STAMP ASSEMBLER * Addendum Note - Chantelle Virgen MD - 02/03/2024 3:53 AM CSTAddended by: CHANTELLE VIRGEN on: 02/03/2024 01:58 PM Modules accepted: Orders ER STAMP ASSEMBLER documented in this encounter Plan of Treatment Upcoming Encounters Date Type Department Care Team (Late st Contact Info) Description 05/09/2024 10:00 AM CDT Office Visit [facility] [address] [place] [address] [place] [address] [place] [address] documented as of this encounter Visit Diagnoses Diagnosis Pleuritic chest pain Painful respiration 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 Assessment Noted Time PHQ-9 Depression Total Score: 3 05/27/20 5:00 PM CDT documented as of this encounter Care Teams Machine Stripper Relationship Specialty [place] [address] [place] [address] PCP - General Family Medicine 04/22/23 [place] [address] [address] Assigned Pain Medication Provider 12/07/22 [place] [address] [address] [address] Assigned PCP 01/23/23 [place] [address] [place] [address] Assigned Musculoskeletal Provider 01/23/23 Gregorio Dalton PA-C [address] [place] [address] Assigned Surgical Provider 05/22/23 Kingsley Garcia MD [address] [place] [address] Assigned Heart and Vascular Provider 08/07/23 [place] [address] [address] [address] Family Medicine 09/10/23 Master Shea PA-C [address] [place] [address] Physician Customs Officer Gastroenterology 09/10/23 Allyssa Justice MD [facility] [address] [place] [address]180[address] Hematology & Oncology 12/10/23 Genaro Christian MD [address] [place], [place] [address] MD Cardiovascular Disease 12/22/23 Master Shea PA-C [address] [place] [address] Assigned Gastroenterology Provider 12/23/23 Sienna Guillermo DO [address] [place] [address] Physician Cardiovascular Disease 01/18/24 documented as of this encounter
--- OUTSIDE RECORDS SUMMARY | 2024-03-25 18:17 | XMS_ITS | Encounter Summary ---
Author Name Unknown Organization [place] Address [facility] [place] [address] Care Team Providers Care Cooperative Education Director Name Role Phone Segundo Mcclelland MD Unavailable [phone] Segundo Mcclelland MD Unavailable [phone] Qamar Jackson MD Unavailable Segundo Mcclelland MD Primary Care Provider + Gregorio Dalton PA-C Unavailable [phone] Kingsley Garcia MD Unavailable + [phone] Segundo Mcclelland MD Unavailable [phone] Master Shea PA-C Unavailable Allyssa Justice MD Unavailable [phone] Genaro Christian MD Unavailable [phone] Master Shea-Shirley Unavailable Sienna Guillermo DO Unavailable [phone] Encounter Details Date Type Department Care Team (Latest Contact Info) Description 01/29/2024 Travel Social History Tobacco Use Types Packs/Day [...] AM CDT Office Visit [facility] [address] [place] [address] [place] [address] [place] [id number] documented as of this encounter Visit Diagnoses Not on file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 Assessment Noted Time PHQ-9 Depression Total Score: 3 05/27/20 23 5:00 PM CDT documented as of this encounter Care Teams Cooperative Education Director Relationship Specialty Start [place] [address] [address] [address] PCP - General Family Medicine 04/22/23 [place] [address] [address] [address] Assigned Pain Medication Provider 12/07/22 [place] [address] [address] [address] Assigned PCP 01/23/23 [place] [address] [place] [place] [address] Assigned Musculoskeletal Provider 01/23/23 Gregorio Dalton PA-C [address] [address] Assigned Surgical Provider 05/22/23 Kingsley Garcia MD [address] [place] [address] Assigned Heart and Vascular Provider 08/07/23 [place] [address] [address] [address] Family Medicine 09/10/23 Master Shea PA-C [address] [place] [address] Physician Business Management Consultant Gastroenterology 09/10/23 Allyssa Justice MD [facility] [address] [place] [address] Hematology & Oncology 12/10/23 Genaro Christian MD 6 [place], [place] [address] Cardiovascular Disease 12/22/23 Master Shea PA-C [address] [place] [place] [address] Assigned Gastroenterology Provider 12/23/23 Sienna Guillermo DO [address] [place] [address] Physician Cardiovascular Disease 01/18/24 documented as of this encounter
--- OUTSIDE RECORDS SUMMARY | 2024-03-25 18:17 | XMS_ITS | Encounter Summary ---
Author Name Unknown Organization [place] Address [address] [place] [address] Care Team Providers Care Chemical Pumper Name Role Phone Segundo Mcclelland MD Unavailable [phone] Segundo Mcclelland MD Unavailable [phone] Qamar Jackson MD Unavailable Segundo Mcclelland MD Primary Care Provider + Gregorio Dalton PA-C Unavailable [phone] Kingsley Garcia MD Unavailable + [phone] Segundo Mcclelland MD Unavailable [phone] Master Shea PA-C Unavailable Allyssa Justice MD Unavailable [phone] Genaro Christian MD Unavailable [phone] Master Shea-Shirley Unavailable Sienna Guillermo DO Unavailable Reason for Visit * Reason Comments Syncope Encounter Details Date Type Department Care Team (Late st Contact Info) Description 01/29/2024 9:05 PM CUSTODIAL SUPERVISOR - 01/30/2024 1:12 AM [facility] Emergency Dept [address] [place] [address] Renetta Humphries MD [facility] [address] [facility] [address] Syncope, unspecified syncope type; Rib contusion, left, initial encounter; Pulmonary nodules Discharge Disposition: Home or Self Care Social [...] Reading Time Taken Comments Blood Pressure 114/71 01/29/2024 9:45 PM CUSTODIAL SUPERVISOR Pulse 124 01/29/2024 10:38 PM CUSTODIAL SUPERVISOR Temperature 36.8 ??C (98.3 ??F) 01/29/2024 9:15 PM CS T Respiratory Rate 9 01/29/2024 10:38 PM CUSTODIAL SUPERVISOR Oxygen Saturation 97% 01/29/2024 11:38 PM CUSTODIAL SUPERVISOR Inhaled Oxygen Concentration - - Weight - - Height - - Body Mass Index - - documented in this encounter Medications at Time [...] anxiety naloxone (NARCAN) 4 MG/0.1ML nasal spray [place] 4 mg into one nostril alternating nostrils [...] 4 MG tabletIndications:Pleu ritic chest pain Take 0.5-1 tablets (2-4 mg) by mouth every 4 hours as needed for severe pain 6 tablet 12/20/2023 02/03/2024 pantoprazole (PROTONIX) 40 MG EC tabletIndications:Jennifer roesophageal [...] as of this encounter ED Notes * Aide Wetzel RN - 01/29/2024 11:59 PM CST Pt requesting PO Dilaudid, pt was told that the Dr will not give her any PO pain meds and pt statesthat she would like to leave, pt was told that is is able to do that, IV was dcd ODIAL SUPERVISOR * Ravindra Lindo RN - 01/29/2024 9:00 PM CST Here for concern of syncope. Stated was setting the dinner table, felt cold and black out. Stated fall was witnessed by her children who told her that she hit her head on the corner kitchen table. Now vomiting with red blood and some clots in vomit. Was seen here yesterday for syncope as well with left rib injury. ABCs intact. Triage Assessment (Adult) Row Name 01/29/242099 Triage Assessment Airway WDL WDL Respiratory WDL Respiratory WDL WDL Cardiac WDL Cardiac WDL WDL ODIAL SUPERVISOR * Renetta Humphries MD - 01/29/2024 8:55 PM CST History Chief Complaint: Syncope HPI Sandi Lopez is a 38 year old female presents for episode of loss of consciousness. Patient states that she is anticoagulated on Eliquis for history of PE. Tonight, she was going to the table and lifting something to the table when she first consciousness fell and hit her head on the kitchentable. Patient states that she had thrown up some bright red blood with clots in it. Evaluated yesterday for syncope. Had x-ray of the ribs which was negative for fracture. On my initial exam, patient is tachycardic however alert and interactive. She complains of pain to the left lateral ribs. She states this is the site where she hit her ribs yesterday and injured them. Independent Historian: Patient, as per HPI. Review of External Notes: Reviewed multiple prior ED visits Medications: Eliquis Folvite Neurontin Dilaudid Ativan Narcan Protonix Pyridium Ambien Past Medical History: Anemia Borderline personality disorder Depressive disorder GERD Hypertension Asthma Kidney stone Mesenteric lymphadenitis Opioid dependence PTSD Pulmonary embolism Past Surgical History: Adenoidectomy Ankle surgery Back surgery Cautery of cervix Cerclage cervical Cholecystectomy Colonoscopy Endoscopic retrograde Esophagoscopy Gastroscopy Duodenoscopy Hysterectomy IR chest port placement Laryngoscopy Oophorectomy Transesophageal echocardiogram Tubal ligation Physical Exam Patient Vitals for the past 24 hrs: BP Temp Temp src Pulse Resp SpO2 01/29/24 2338 -- -- -- -- -- 97 % 01/29/24 2323 -- -- -- -- -- 98 % 01/29/24 2308 -- -- -- -- -- 97 % 01/29/242237 -- -- -- (!) 124 (!) 9 98 % 01/29/242222 -- -- -- (!) 131 20 97 % 01/29/242207 -- -- -- (!) 125 18 98 % 01/29/242152 -- -- -- (!) 125 14 97 % 01/29/242150 -- -- -- 118 11 97 % 01/29/242144 114/71 -- -- (!) 122 13 96 % 01/29/242137 -- -- -- (!) 129 11 95 % 01/29/242129 (!) 140/110 -- -- (!) 133 16 96 % 01/29/242122 -- -- -- (!) 133 (!) 8 96 % 01/29/242114 (!) 121/93 98.3 ??F (36.8 ??C) Oral (!) 132 18 96 % 01/29/242107 (!) 140/81 -- -- (!) 141 -- 97 % 01/29/242100 (!) 141/102 98.8 ??F (37.1 ??C) Temporal (!) 137 18 97 % Physical Exam Gen: alert CV: tachycardia regular, Pulm: breath sounds equal, lungs clear Chest- tenderness over the left lateral ribs Abd: Soft, nontender Back: no evidence of injury, no cva tenderness MSK: no deformity, moves all extremities Skin: no rash Neuro: alert, appropriate conversation and interaction Emergency Department Course ECG ECG taken at 2106, ECG read at 2226 Sinus tachycardia Low voltage QRS Borderline ECG Rate 136 bpm. WA interval 156 ms. QRS duration 64 ms. QT/QTc 262/394 ms. P-R-T axes 44 13 27. Imaging: CT Chest Abdomen Pelvis w/o Contrast Final Result IMPRESSION: 1. No acute findings in the chest, abdomen and pelvis. 2. Scattered 2 to 3 mm pulmonary nodules. Per Fleischner Society 2017 guideline, a one-year follow-up chest CT could be considered if patient is at high risk for lung cancer. Without lung cancer riskfactor, no follow-up is necessary. Head CT w/o contrast Final Result IMPRESSION: 1. No acute intracranial hemorrhage or calvarial fracture. Laboratory: Labs Ordered and Resulted from Time of ED Arrival to Time of ED Departure BASIC METABOLIC PANEL - Abnormal Result Value Sodium 136 Potassium 4.3 Chloride 103 Carbon Dioxide (CO2) 22 Anion Gap 11 Urea Nitrogen 11.3 Creatinine 0.58 GFR Estimate >90 Calcium 9.0 Glucose 105 (*) CBC WITH PLATELETS AND DIFFERENTIAL Emergency Department Course & Assessments: Interventions: Medications sodium chloride 0.9% BOLUS 1,000 mL (1,000 mLs Intravenous $New Bag 01/29/242318) pantoprazole (PROTONIX) IV push injection 40 mg (40 mg Intravenous $Given 01/29/242318) Procedure: Ultrasound-guided IV access PERFORMED BY: Renetta Humphries MD LOCATION/SITE: Right upper arm INDICATION: Need for IV access, hx of difficult IV access Ultrasound was used to identify the vein. Site cleaned with alcohol swab. Using ultrasound, IV access obtained in the right upper arm. Procedure complicated by multiple failed attempts Interpretation: Successful placement of peripheral IV catheter Assessments/Consultations/Discussion of Management or Tests: ED Course as of 01/30/24 0035 Sat Jan 29, 20241 I have evaluated the patient. Impression & Plan Medical Decision Making: Patient presenting for syncope. Multiple ED visits for similar reviewed. Patient has extremely difficult IV access. After multiple attempts with ultrasound guided IV, I was able to place a right upper extremity peripheral IV. Laboratory studies were obtained and fluids were started. Unfortunately this infiltrated. I BMP reassuring. CBC unfortunately clotted. I asked the nurse to have phlebotomy come to try to redraw the patient. Will and with procedure with different patient, patient eloped from the emergency department prior to reassessment. Patient's nurse did ask me if I would provide her with some oral Dilaudid or pain medications. I stated that we would not do any oral Dilaudid prior to reassessment. Patient eloped prior to reassessment. Given anticoagulation, CT of the head was obtained to assure no acute intracranial process. CT chest abdomen pelvis was obtained which showed no evidence of acute injury. Patient left before these results were specifically discussed by myself. Pulmonary nodules are noted on patient's problem list so therefore not a new finding. Patient eloped prior to discharge Diagnosis: ICD-10-CM 1. Syncope, unspecified syncope type R55 2. Rib contusion, left, initial encounter S20.212A 3. Pulmonary nodules R91.8 Scribe Disclosure: I, Dulce Smith, am serving as a scribe at 12:34 AM on 01/30/2024 to document services personally performed by Renetta Humphries based on my observations and the provider's statements to me. 01/30/2024 Renetta Humphries Kristi Jo Schneider, MD 01/30/24319 Renetta Humphries MD 01/30/24 0334 ODIAL SUPERVISOR documented in this encounter Plan of Treatment Upcoming Encounters Date Type Department Care Team (Late st Contact Info) Description 05/09/2024 10:00 AM CDT Office Visit [address] [address] [place] [address] [address] [address] documented as of this encounter Procedures Procedure Name Priority Date/Time Associated Diagnosis Comments CT CHEST ABDOMEN PELVIS W/O CONTRAST STAT 01/29/2024 11:[address] HEAD W/O CONTRAST STAT 01/29/2024 11:01 PM CUSTODIAL SUPERVISOR BASIC METABOLIC PANEL STAT 01/29/2024 10:20 PM CUSTODIAL SUPERVISOR EKG 12-LEAD, TRACING ONLY STAT 01/29/2024 9:07 PM CUSTODIAL SUPERVISOR documented in this encounter Results * CT Chest Abdomen Pelvis w/o Contrast (01/29/2024 11:02 PM CUSTODIAL SUPERVISOR) Anatomical Region Laterality Modality Abdomen/Pelvis, SUBRAD CT ESSIE DY, UMP CT CHEST, UMP CT ABDOMEN PELVIS, Chest, RAD CT Computed Tomography 01/29/2024 11:0 2 PM CUSTODIAL SUPERVISOR Impressions 01/29/2024 11:16 PM CUSTODIAL SUPERVISOR IMPRESSION: 1. ??No acute findings in the chest, abdomen and pelvis. 2. ??Scattered 2 to 3 mm pulmonary nodules. Per Fleischner Society 2017 guideline, a one-year follow-up chest CT could be considered if patient is at high risk for lung cancer. Without lung cancer risk factor, no follow-up is necessary. Narrative 01/29/2024 11:16 PM CUSTODIAL SUPERVISOR EXAM: CT CHEST ABDOMEN PELVIS W/O CONTRAST LOCATION: [facility] DATE: 01/29/2024 INDICATION: fall, syncope COMPARISON: 01/01/2024 [...] CT CHEST ABDOMEN PELVIS W/O CONTRAST LOCATION: [facility] DATE: 01/29/2024 INDICATION: fall, syncope COMPARISON: 01/01/2024 [...] Humphries MD IMG CT O RDERABLES * Head CT w/o contrast (01/29/2024 11:01 PM CUSTODIAL SUPERVISOR) Anatomical Region Laterality Modality Head, SUBRAD CT NEURO, SUBRA D CT NEURO, UMP CT NEURO, RAD CT Computed Tomography 01/29/2024 11:0 1 PM CUSTODIAL SUPERVISOR Impressions 01/29/2024 11:18 PM CUSTODIAL SUPERVISOR IMPRESSION: 1. ??No acute intracranial hemorrhage or calvarial fracture. Narrative 01/29/2024 11:18 PM CUSTODIAL SUPERVISOR EXAM: CT HEAD W/O CONTRAST LOCATION: [facility] DATE: 01/29/2024 INDICATION: Head injury COMPARISON: 01/05/2024 TECHNIQUE: Routine CT Head without IV contrast. Multiplanar reformats. Dose reduction techniques were used. FINDINGS: INTRACRANIAL CONTENTS: No intracranial hemorrhage, extraaxial collection, or mass effect. ??No CT evidence of acute infarct. Normal parenchymal attenuation. Normal ventricles and sulci. VISUALIZED ORBITS/SINUSES/MASTOIDS: No intraorbital abnormality. No paranasal sinus mucosal disease. No middle ear or mastoid effusion. BONES/SOFT TISSUES: No acute abnormality. Procedure Note Will Lerma MD - 01/29/2024 EXAM: CT HEAD W/O CONTRAST LOCATION: [facility] DATE: 01/29/2024 INDICATION: Head injury COMPARISON: 01/05/2024 TECHNIQUE: Routine CT Head without IV contrast. Multiplanar reformats.Dose reduction techniques were used. FINDINGS: INTRACRANIAL CONTENTS: No intracranial hemorrhage, extraaxial collection,or mass effect. No CT evidence of acute infarct. Normal parenchymalattenuation. Normal ventricles and sulci. VISUALIZED ORBITS/SINUSES/MASTOIDS: No intraorbital abnormality. Noparanasal sinus mucosal disease. No middle ear or mastoid effusion. BONES/SOFT TISSUES: No acute abnormality. IMPRESSION: 1. No acute intracranial hemorrhage or calvarial fracture. Renetta Humphries MD [facility] CT O RDERABLES * (ABNORMAL) Basic metabolic panel (01/29/2024 10:20 PM CUSTODIAL SUPERVISOR) Sodium 136 135 - 145 mmol/L 01/29/2024 11:45 PM CUSTODIAL SUPERVISOR LABORATORY Comment:Reference intervals for this test were updated on 08/24/2023 to more accurately reflect our healthy population. There may be differences in the flagging of prior results with similar values performed with this method. Interpretation of those prior results can be made in the context of the updated reference intervals. Potassium 4.3 3.4 - 5.3 mmol/L 01/29/2024 11:45 PM [facility] Comment:Specimen slightly he molyzed. The reported potassium value may be falsely elevated. Analysis of a non-hemolyzed specimen (i.e. re-draw) may result in a lower potassium value. Chloride 103 98 - 107 mmol/L 01/29/2024 11:45 PM CUSTODIAL SUPERVISOR LABORATORY Carbon Dioxide (CO2) 22 22 - 29 mmol/L 01/29/2024 11:45 PM [facility] Anion Gap 11 7 - 15 mmol/L 01/29/2024 11:45 PM CUSTODIAL SUPERVISOR LABORATORY Urea Nitrogen 11.3 6.0 - 20.0 mg/dL 01/29/2024 11:45 PM [facility] Creatinine 0.58 0.51 - 0.95 mg/dL 01/29/2024 11:45 PM [facility] GFR Estimate >90 >60 mL/min/1. 73m2 01/29/2024 11:45 PM [facility] Calcium 9.0 8.6 - 10.0 mg/dL 01/29/2024 11:45 PM [facility] Glucose 105(H) 70 - 99 mg/dL 01/29/2024 11:45 PM [facility] Blood BLOOD SPECIMEN / Unknown Venipuncture / Unknown 01/29/2024 10:20 PM CUSTODIAL SUPERVISOR 01/29/2024 10:26 PM [facility] Renetta Humphries MD LAB - BL OOD ORDERABLES LABORATORY [facility] Acute Care Lab [address] Lab (1st floor, no room number) [place] [address] [phone] * EKG 12-lead, tracing only (01/29/2024 9:07 PM CUSTODIAL SUPERVISOR) Systolic Blood Pressure mmHg RADIOLOGY RESULTS Diastolic Blood Pressure mmHg RADIOLOGY RESULTS Ventricular Rate 136 BPM RAD IOLOGY RESULTS Atrial Rate 136 BPM RADIOLOG Y RESULTS WA Interval 156 ms RADIOLOG Y RESULTS QRS Duration 64 ms RADIOLO GY RESULTS QT 262 ms RADIOLOGY RESULTS QTc 394 ms RADIOLOGY RESULTS P [place] 44 degrees RADIOLOGY RESULTS R AXIS 13 degrees RADIOLOGY RESULTS T [place] 27 degrees RADIOLOGY RESULTS Interpretation ECG Sinus tachycardia Low voltage QRS Borderline ECG When compared with ECG of 28-JAN-2024 17:54, (unconfirmed) No significant change was found Confirmed by - EMERGENCY ROOM, PHYSICIAN ([id number]), book editor VALENTE BROWNING (Jessica) on 01/31/2024 6:38:11 AM RADIOLOGY RESULTS 01/29/2024 9:07 PM CUSTODIAL SUPERVISOR 01/31/2024 6:38 AM CUSTODIAL SUPERVISOR Renetta Humphries MD ECG CIELO LINO RADIOLOGY RESULTS documented in this encounter Visit Diagnoses Diagnosis Syncope, unspecified syncope type Rib contusion, left, initial encounter Pulmonary nodules Other nonspecific abnormal finding of lung field documented in this encounter Administered Medications Inactive Administered Medications - up to 3 most recent administrations Medication Order MAR Action Action Date Dose Rate Site pantoprazole (PROTONIX) IV push injection 40 mg 40 mg, Intravenous, ONCE, On 01/29/24 at 2225, For 1 dose, Irritant. $Given 01/29/2024 11:19 PM CUSTODIAL SUPERVISOR 40 mg sodium chloride 0.9% BOLUS 1,000 mL Intravenous, 1,000 mL, ONCE, at 1,000 mL/hr, Administer over 1 Hours, On 01/29/24 at 2225, For 1 dose $New Bag 01/29/2024 11:19 PM CUSTODIAL SUPERVISOR 1,000 mLs 1000 mL/hr documented in this encounter Active and Recently Administered Medications Times are shown in CUSTODIAL SUPERVISOR. Scheduled Medication Order 01/28/2024 01/29/2024 01/30/2024 pantoprazole (PROTONIX) IV push injection 40 mg (COMPLETED) 40 mg, Intravenous, ONCE, On 01/29/24 at 2225, For 1 dose, Irritant. 2319 ($Given - Provider: Clarisse Wetzel RN) sodium chloride 0.9% BOLUS 1,000 mL (COMPLETED) Intravenous, 1,000 mL, ONCE, at 1,000 mL/hr, Administer over 1 Hours, On 01/29/24 at 2225, For 1 dose 2319 ($New Bag - Provider: Aide Wetzel RN) 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 Assessment Noted Time PHQ-9 Depression Total Score: 3 05/27/20 23 5:00 PM CDT documented as of this encounter Care Teams Chemical Pumper Relationship Specialty Start [place] [address] [address] [address] PCP - General Family Medicine 04/22/23 [place] [address] [address] [address] Assigned Pain Medication Provider 12/07/22 [place] [address] [address] [address] Assigned PCP 01/23/23 [place] [address] [place] [address] Assigned Musculoskeletal Provider 01/23/23 Gregorio Dalton PA-C [address] [address] Assigned Surgical Provider 05/22/23 Kingsley Garcia MD [address] [place] [address] Assigned Heart and Vascular Provider 08/07/23 [place] [address] [address] [address] Family Medicine 09/10/23 Master Shea PA-C [address] [place] [place] [address] Physician Beef Grader Gastroenterology 09/10/23 Allyssa Justice MD [facility] [address] [place] [address] Hematology & Oncology 12/10/23 Genaro Christian MD [address] [place] [address] Cardiovascular Disease 12/22/23 Master Shea PA-C [address] [place] [address] Assigned Gastroenterology Provider 12/23/23 Sienna Guillermo DO [address] [place] [place] [address] Physician Cardiovascular Disease 01/18/24 documented as of this encounter
--- OUTSIDE RECORDS SUMMARY | 2024-03-25 18:18 | XMS_ITS | Encounter Summary ---
Author Name Unknown Organization [place] Address [address] [place] [id number] Care Team Providers Care Operations Intern Name Role Phone Segundo Mcclelland MD Unavailable [phone] Segundo Mcclelland MD Unavailable [phone] Qamar Jackson MD Unavailable Segundo Mcclelland MD Primary Care Provider + Gregorio Dalton PA-C Unavailable [phone] Kingsley Garcia MD Unavailable + [phone] Segundo Mcclelland MD Unavailable [phone] Master Shea PA-C Unavailable Allyssa Justice MD Unavailable [phone] Genaro Christian MD Unavailable [phone] Master Shea-C Unavailable Sienna Guillermo DO Unavailable [phone] Reason for Visit * Reason Comments Syncope Encounter Details Date Type Department Care Team (Late st Contact Info) Description 01/28/2024 5:55 PM PROGRAM AIDE GROUP WORK - 01/29/2024 1:07 AM [facility] Emergency Dept [address] [place] [address] Livia Gutierrez MD [facility] [address] [place] [address] Syncope and collapse; Rib pain on left side Discharge Disposition: Home or Self Care Social [...] Sign Reading Time Taken Comments Blood Pressure 151/112 01/29/2024 12:06 AM PROGRAM AIDE GROUP WORK Pulse 129 01/28/2024 10:00 PM PROGRAM AIDE GROUP WORK Temperature 36.8 ??C (98.2 ??F) 01/28/2024 5:33 PM CS T Respiratory Rate 16 01/28/2024 5:33 PM PROGRAM AIDE GROUP WORK Oxygen Saturation 97% 01/29/2024 1:02 AM PROGRAM AIDE GROUP WORK Inhaled Oxygen Concentration - - Weight - - Height - - Body Mass Index - - documented in this encounter Discharge Instructions * Discharge Instructions* Livia Gutierrez MD - 01/28/2024 11:53 PM PROGRAM AIDE GROUP WORK Discharge Instructions Syncope Syncope (fainting) is a sudden, short loss of consciousness (passing out spell). People will usually fall to the ground when they faint or slump over if seated. People may also shake when this happens, and it can sometimes be difficult to tell the difference between syncope and a seizure. At this time, your provider does not find a reason to suspect that your fainting spell is a sign of anything dangerous or life-threatening. However, sometimes the signs of serious illness do not show up right away. Generally, every Emergency Department visit should have a follow-up clinic visit with either a primary or a specialty clinic/provider. Please follow-up as instructed by your emergency provider today. Return to the Emergency Department if: You faint again. You have any significant bleeding. You have chest pain or a fast or irregular heartbeat. You feel short of breath. You cough up any blood. You have abdominal (belly) pain or unusual back pain. You have ongoing vomiting (throwing up) or diarrhea (loose stools). You have a black or tarry bowel movement, or blood in the stool or in your vomit. You have a fever over 101??F. You lose feeling or cannot move a part of your body or cannot talk normally. You are confused, have a headache, cannot see well, or have a seizure. DO NOT DRIVE. CALL 911 INSTEAD! What can I do to help myself? Follow any specific instructions that your provider discussed with you. If you feel light-headed, make sure to sit down right away, even if you have to sit on the floor. Follow up with your regular medical provider as discussed for further management. This may include lowering your blood pressure medications, insulin or other diabetic medications, checking your bloodsugar more frequently, and drinking more fluids, taking medicines for vomiting or diarrhea or getting up slower. If you were given a prescription for [...] if there is anything that worries you. RAM AIDE GROUP WORK documented in this encounter Medications at Time of Discharge Medication Sig Dispensed Refills Start Date End Date acetaminophen (TYLENOL) 500 MG tablet Take 1,000 mg by mouth every 4 hours as needed for mild pain childrens multivitamin w/iron (FLINTSTONES COMPLETE) chewable tablet Take 1 chew tab by mouth daily Cholecalciferol (VITAMIN D3) 50 MCG (1999) CAPS Take 1 capsule by mouth daily [...] anxiety naloxone (NARCAN) 4 MG/0.1ML nasal spray Webb 4 mg into one nostril alternating nostrils [...] as of this encounter Progress Notes * Koki Fu CCLS - 01/28/2024 10:27 PM CST 01/28/24 2226 Child Life Location [facility] ED Interaction Intent Introduction of Services;Initial Assessment Individuals Present Patient;Siblings/Child Family Members Intervention Goal Supportive check in for patient's daughter. Outcomes Comment Talked with patient's daughter to answer any questions and provided activities fornormalization of environment. Time Spent Direct Patient Care 15 Indirect Patient Care 10 Total Time Spent (Calc) 25 RAM AIDE GROUP WORK documented in this encounter ED Notes * Karon Boyd RN - 01/28/2024 5:34 PM CST Patient reports syncopal episode and nausea and vomiting. Syncope occurred about 45 minutes ago. Denies other symptoms. RAM AIDE GROUP WORK * Livia Gutierrez MD - 01/28/2024 5:31 PM CST History Chief Complaint: Syncope The history is provided by the patient. Sandi Lopez is a 38 year old female with history of POTS, borderline personality disorder, and hypertension presenting for evaluation of syncope. Sandi explains that she suddenly lost consciousness in her bathroom earlier today, falling onto her left side. She notes pain in her left upperback that is exacerbated with breathing. Independent Historian: None - Patient Only Review of External Notes: Reviewed patient's chart, and she has extensive visits for tachycardia, syncope and collapse. She also has extensive imaging history and drug-seeking behavior. Medications: Eliquis Benadryl Epinephrine Neurontin Ativan Protonix [...] Vitals for the past 24 hrs: BP Pulse SpO2 01/29/24 0102 -- -- 97 % 01/29/24 0101 -- -- 97 % 01/29/24 0100 -- -- 97 % 01/29/24 0059 -- -- 96 % 01/29/24 0006 (!) 151/112 -- 97 % 01/28/24 2200 (!) 144/82 (!) 129 97 % 01/28/24 2101 100/58 120 99 % 01/28/242004 (!) 114/90 115 100 % Physical Exam General: Well-nourished, resting comfortably when I enter the room Eyes: Pupils equal, conjunctivae pink no scleral icterus or conjunctival injection ENT: Moist mucus membranes Respiratory: Lungs clear to auscultation bilaterally, no crackles/rubs/wheezes. Good air movement CV: Normal rate and rhythm, no murmurs GI: Abdomen soft and non-distended. No tenderness, guarding or rebound. Skin: Warm, dry. No rashes or petechiae. No bruises, abrasions, swelling. Musculoskeletal: No peripheral edema or calf tenderness. Tenderness to palpation over the left lateral ribs. Neuro: Alert and oriented to person/place/time Psychiatric: Normal affect Emergency Department Course ECG ECG taken at 1754, ECG read at 1804 Sinus tachycardia Possible Inferior infarct, age undetermined Cannot rule out Anterior infarct, age undetermined Abnormal ECG Rate 124 bpm. OR interval 170 ms. QRS duration 64 ms. QT/QTc 286/410 ms. P-R-T axes 60 10 21. Imaging: Chest XR, PA & LAT Final Result IMPRESSION: Negative chest. Laboratory: Labs Ordered and Resulted from Time of ED Arrival to Time of ED Departure CBC WITH PLATELETS AND DIFFERENTIAL - Abnormal Result Value WBC Count 14.5 (*) RBC Count 4.66 Hemoglobin 13.1 Hematocrit 39.8 MCV 85 MCH 28.1 MCHC 32.9 RDW 21.9 (*) Platelet Count 378 % Neutrophils 79 % Lymphocytes 15 % Monocytes 6 % Eosinophils 0 % Basophils 0 % Immature Granulocytes 0 NRBCs per 100 WBC 0 Absolute Neutrophils 11.4 (*) Absolute Lymphocytes 2.2 Absolute Monocytes 0.8 Absolute Eosinophils 0.0 Absolute Basophils 0.0 Absolute Immature Granulocytes 0.1 Absolute NRBCs 0.0 ROUTINE UA WITH MICROSCOPIC REFLEX TO CULTURE - Abnormal Color Urine Mcpherson (*) Appearance Urine Cloudy (*) Glucose Urine Negative Bilirubin Urine Negative Ketones Urine 10 (*) Specific [place] Urine 1.033 Blood Urine Large (*) pH Urine 5.5 Protein Albumin Urine 100 (*) Urobilinogen Urine Normal Nitrite Urine Negative Leukocyte Esterase Urine Trace (*) Mucus Urine Present (*) Amorphous Crystals Urine Few (*) RBC Urine >182 (*) WBC Urine 8 (*) Squamous Epithelials Urine 6 (*) BASIC METABOLIC PANEL - Normal Sodium 137 Potassium 3.7 Chloride 100 Carbon Dioxide (CO2) 22 Anion Gap 15 Urea Nitrogen 17.0 Creatinine 0.83 GFR Estimate >90 Calcium 9.5 Glucose 87 TROPONIN T, HIGH SENSITIVITY - Normal Troponin T, High Sensitivity 9 HCG QUALITATIVE URINE - Normal hCG Urine Qualitative Negative INFLUENZA A/B, RSV, & SARS-COV2 PCR - Normal Influenza A PCR Negative Influenza B PCR Negative RSV PCR Negative SARS CoV2 PCR Negative Procedures Emergency Department Course & Assessments: Interventions: Medications sodium chloride 0.9% BOLUS 1,000 mL (0 mLs Intravenous Stopped 01/28/242132) sodium chloride 0.9% BOLUS 1,000 mL (0 mLs Intravenous Stopped 01/29/2416) HYDROmorphone (DILAUDID) tablet 2 mg (2 mg Oral $Given 01/28/242133) sodium chloride 0.9% BOLUS 500 mL (0 mLs Intravenous Stopped 01/29/24102) HYDROmorphone (DILAUDID) half-tab 1 mg (1 mg Oral $Given 01/29/2416) Assessments: 2129 I obtained history and examined the patient as noted above. Independent Interpretation (X-rays, CTs, rhythm strip): Chest x-ray does not show any signs of consolidation Consultations/Discussion of Management or Tests: None Social Determinants of Health affecting care: None Disposition: The patient was discharged. Impression & Plan Medical Decision Makin-year-old female with history of POTS, borderline personality disorder, hypertension, opioid dependence, presents to the emergency department after syncopal episode. Patient reports that she has POTS and syncope is not unusual for her. She states this was similar to previous syncopal episodes shehas had in the past. She states that she fell onto her left side and is having left rib pain. On exam left flank does not show any bruising, abrasions, swelling. Left ribs are slightly tender to palpation. I did do a bedside FAST exam which was negative. Workup is overall reassuring. Patient is not anemic. She is also not . Her urine does have blood, but is unchanged from her urine 3 weeks ago. No signs of infection in her urine. She is not having any pain with urination. No rib fractures on x-ray, but I have a suspicion that she probably bruised her ribs. No signs of pneumothorax or pleural effusion. Patient is consistently on the call light, requesting Dilaudid. Patient is given 2.5 L of fluid. She is feeling much better. Patient's vital signs are similar to what they have been in the past. Whenno one is in the room, her heart rate comes down to 105. When I enter the room her heart rate will immediately jump to 130. I do not see any acute signs of intra-abdominal emergency. Patient is able to get up and ambulate. Patient feels comfortable going home and will follow-up with primary care. Diagnosis: ICD-10-CM 1. Syncope and collapse R55 2. Rib pain on left side R07.81 Discharge Medications: Discharge Medication List as of 01/29/2024 1:03 AM Scribe Disclosure: I, Willi Disla, am serving as a scribe at 10:02 PM on 01/28/2024 to document services personally performed by Livia Gutierrez MD based on my observations and the provider's statements to me. 01/28/2024 Livia Gutierrez MD Richardson, Elizabeth, MD 01/29/241950 RAM AIDE GROUP WORK documented in this encounter Plan of Treatment Upcoming Encounters Date Type Department Care Team (Late st Contact Info) Description 05/09/2024 10:00 AM CDT Office Visit [facility] [id number] [place] [phone] [place] [address] [place] [address] documented as of this encounter Procedures Procedure Name Priority Date/Time Associated Diagnosis Comments HCG QUALITATIVE URINE STAT 01/29/2024 12:00 AM PROGRAM AIDE GROUP WORK ROUTINE UA WITH MICROSCOPIC REFLEX TO CULTURE STAT 01/29/2024 12:00 AM PROGRAM AIDE GROUP WORK XR CHEST 2 VIEWS STAT 01/28/2024 10:2 5 PM PROGRAM AIDE GROUP WORK INFLUENZA A/B, RSV, & SARS-COV2 PCR STAT 01/28/2024 9:33 PM PROGRAM AIDE GROUP WORK EXTRA TUBE STAT 01/28/2024 6:44 PM PROGRAM AIDE GROUP WORK EXTRA RED TOP TUBE STAT 01/28/2024 6: 44 PM PROGRAM AIDE GROUP WORK EXTRA BLUE TOP TUBE STAT 01/28/2024 6 :44 PM PROGRAM AIDE GROUP WORK CBC WITH PLATELETS AND DIFFERENTIAL STAT 01/28/2024 6:44 PM PROGRAM AIDE GROUP WORK TROPONIN T, HIGH SENSITIVITY STAT 01/28/2024 6:44 PM PROGRAM AIDE GROUP WORK CBC WITH PLATELETS & DIFFERENTIAL STAT 01/28/2024 6:44 PM PROGRAM AIDE GROUP WORK BASIC METABOLIC PANEL STAT 01/28/2024 6:44 PM PROGRAM AIDE GROUP WORK EKG 12-LEAD, TRACING ONLY STAT 01/28/2024 5:54 PM PROGRAM AIDE GROUP WORK documented in this encounter Results * HCG qualitative urine (UPT) (01/29/2024 12:00 AM PROGRAM AIDE GROUP WORK) hCG Urine Qualitative Negative Negative [place] 01/29/2024 12:23 AM PROGRAM AIDE GROUP WORK LABORATORY Comment:This test is for scr eening purposes. Results should be interpreted along with the clinical picture. Confirmation testing is available if warranted by ordering [id number], HCG Quantitative . Urine MID-STREAM URINE SPECIMEN / Unknown Non-blood Collection / Unknown 01/29/2024 12:00 AM PROGRAM AIDE GROUP WORK 01/29/2024 12:15 AM PROGRAM AIDE GROUP WORK Seth Farias MD LAB - URINE ORDERABL ES [facility] Acute Care Lab [address] [facility] Lab (1st floor, no room number) [place] [address], [place] [phone] * (ABNORMAL) UA with Microscopic reflex to Culture (01/29/2024 12:00 AM PROGRAM AIDE GROUP WORK) Color Urine Mcpherson(A) Colorless, Straw, Light Yellow, Yellow 01/29/2024 12:39 AM PROGRAM AIDE GROUP WORK LABORATORY Appearance Urine Cloudy(A) Clear 01/29/20 24 12:39 AM PROGRAM AIDE GROUP WORK LABORATORY Glucose Urine Negative Negative mg/dL 01/29/2024 12:39 AM PROGRAM AIDE GROUP WORK LABORATORY Bilirubin Urine Negative Negative 12:39 AM PROGRAM AIDE GROUP WORK LABORATORY Ketones Urine 10(A) Negative mg/dL 01/29/2024 12:39 AM PROGRAM AIDE GROUP WORK LABORATORY Specific [place] Urine 1.033 1.003 - 1.035 01/29/2024 12:39 AM PROGRAM AIDE GROUP WORK LABORATORY Blood Urine Large(A) Negative 01/29/2024 12:39 AM PROGRAM AIDE GROUP WORK LABORATORY pH Urine 5.5 5.0 - 7.0 01/29/2024 12:39 AM PROGRAM AIDE GROUP WORK LABORATORY Protein Albumin Urine 100(A) Negative mg/dL 01/29/2024 12:39 AM PROGRAM AIDE GROUP WORK LABORATORY Urobilinogen Urine Normal Normal, 2.0 mg/dL 01/29/2024 12:39 AM PROGRAM AIDE GROUP WORK LABORATORY Nitrite Urine Negative Negative 01/29/2024 12:39 AM PROGRAM AIDE GROUP WORK LABORATORY Leukocyte Esterase Urine Trace(A) Negative 01/29/2024 12:39 AM PROGRAM AIDE GROUP WORK LABORATORY Mucus Urine Present(A) None Seen /LPF 01/29/2024 12:39 AM PROGRAM AIDE GROUP WORK LABORATORY Amorphous Crystals Urine Few(A) None Seen /HPF 01/29/2024 12:39 AM PROGRAM AIDE GROUP WORK LABORATORY RBC Urine >182(H) <=2 /HPF 01/29/2024 12:39 AM PROGRAM AIDE GROUP WORK LABORATORY WBC Urine 8(H) <=5 /HPF 01/29/2024 12:39 AM PROGRAM AIDE GROUP WORK LABORATORY Squamous Epithelials Urine 6(H) <=1 /HPF 01/29/2024 12:39 AM [facility] LABORATORY Urine MID-STREAM URINE SPECIMEN / Unknown Non-blood Collection / Unknown 01/29/2024 12:00 AM PROGRAM AIDE GROUP WORK 01/29/2024 12:16 AM PROGRAM AIDE GROUP WORK Narrative LABORATORY - 01/29/2024 12:39 AM PROGRAM AIDE GROUP WORK Urine Culture not indicated Seth Farias MD LAB - URINE ORDERABL ES LABORATORY [facility] Acute Care Lab [address] [facility] Lab (1st floor, no room number) [place] [address], [place] [phone] * Chest XR, PA & LAT (01/28/2024 10:25 PM PROGRAM AIDE GROUP WORK) Anatomical Region Laterality Modality Chest Digital Radiogra phy 01/28/2024 10:2 5 PM PROGRAM AIDE GROUP WORK Impressions 01/28/2024 10:30 PM PROGRAM AIDE GROUP WORK IMPRESSION: Negative chest. Narrative 01/28/2024 10:30 PM PROGRAM AIDE GROUP WORK EXAM: XR CHEST 2 VIEWS LOCATION: [facility] DATE: 01/28/2024 INDICATION: left rib pain, fall COMPARISON: 12/19/2023 Procedure Note Harley Heck MD - 01/28/2024 EXAM: XR CHEST 2 VIEWS LOCATION: [facility] DATE: 01/28/2024 INDICATION: left rib pain, fall COMPARISON: 12/19/2023 IMPRESSION: Negative chest. Livia Gutierrez MD IMG DIAGNOSTIC I MAGING ORDERABLES * Symptomatic Influenza A/B, RSV, & SARS-CoV2 PCR (COVID-19) Nasopharyngeal (01/28/2024 9:33 PM PROGRAM AIDE GROUP WORK) Influenza A PCR Negative Negative 01/28/2024 10:22 PM PROGRAM AIDE GROUP WORK LABORATORY Influenza B PCR Negative Negative 01/28/2024 10:22 PM PROGRAM AIDE GROUP WORK LABORATORY RSV PCR Negative Negative 01/28/2024 10:22 PM PROGRAM AIDE GROUP WORK LABORATORY SARS CoV2 PCR Negative Negative 01/28/2024 10:22 PM PROGRAM AIDE GROUP WORK LABORATORY Comment:NEGATIVE: SARS-CoV-2 (COVID-19) RNA not detected, presumed negative. Swab NASOPHARYNGEAL STRUCTURE / Unknown Non-blood Collection / Unknown 01/28/2024 9:33 PM PROGRAM AIDE GROUP WORK 01/28/2024 9:42 PM PROGRAM AIDE GROUP WORK [facility] LABORATORY - 01/28/2024 10:22 PM PROGRAM AIDE GROUP WORK Testing was performed using the Xpert Xpress CoV2/Flu/RSV Assay on the eEvent GeneXpert Instrument. This test should be ordered [...] management. This test was validated by the [facility]. These laboratories are certified under the Clinical Laboratory Improvement Amendments of 1988 (CLIA-88) as qualified to perform high complexity laboratory testing. Seth Farias MD LAB - MICRO GENERAL ORDERABLES [facility] Acute Care Lab [address] Lab (1st floor, no room number) [place] [id number], [place] [phone] * Extra Red Top Tube (01/28/2024 6:44 PM PROGRAM AIDE GROUP WORK) Hold Specimen [facility] 01/28/2024 8:07 PM PROGRAM AIDE GROUP WORK [facility] LABORATORY Blood STRUCTURE OF LEFT UPPER LIMB / Unknown Venipuncture / Unknown 01/28/2024 6:44 PM PROGRAM AIDE GROUP WORK 01/28/2024 6:47 PM PROGRAM AIDE GROUP WORK Emily Romo MD LAB - BLOOD ORDERABL ES Performing Organization Address [facility]/ZIP Co de Phone Number [facility] [address] Lab (1st floor, no room number) [place] [address], [place] [phone] * Extra Blue Top Tube (01/28/2024 6:44 PM PROGRAM AIDE GROUP WORK) Hold Specimen [facility] 01/28/2024 8:07 PM PROGRAM AIDE GROUP WORK [facility] LABORAT[facility] Blood STRUCTURE OF LEFT UPPER LIMB / Unknown Venipuncture / Unknown 01/28/2024 6:44 PM PROGRAM AIDE GROUP WORK 01/28/2024 6:47 PM PROGRAM AIDE GROUP WORK Emily Romo MD LAB - BLOOD ORDERABL ES Performing Organization Address City/[facility]/ZIP Co de Phone Number [facility] Care Lab [address] Lab (1st floor, no room number) [place] [address], [place] [phone] * (ABNORMAL) CBC with platelets and differential (01/28/2024 6:44 PM PROGRAM AIDE GROUP WORK) [facility] WBC Count 14.5(H) 4.0 - 11.0 10e3/uL 01/28/2024 6:51 PM PROGRAM AIDE GROUP WORK [facility] LABORATORY RBC Count 4.66 3.80 - 5.20 10e6/uL 01/28/2024 6:51 PM PROGRAM AIDE GROUP WORK [facility] Hemoglobin 13.1 11.7 - 15.7 g/dL 01/28/2024 6:51 PM PROGRAM AIDE GROUP WORK [facility] Hematocrit 39.8 35.0 - 47.0 % 01/28/2024 6:51 PM PROGRAM AIDE GROUP WORK [facility] MCV 85 78 - 100 fL 01/28/2024 6:51 PM PROGRAM AIDE GROUP WORK [facility] MCH 28.1 26.5 - 33.0 pg 01/28/2024 6:51 PM PROGRAM AIDE GROUP WORK [facility] MCHC 32.9 31.5 - 36.5 g/dL 01/28/2024 6:51 PM PROGRAM AIDE GROUP WORK [facility] RDW 21.9(H) 10.0 - 15.0 % 01/28/2024 6:51 PM PROGRAM AIDE GROUP WORK [facility] Platelet Count 378 150 - 450 10e3/uL 01/28/2024 6:51 PM PROGRAM AIDE GROUP WORK [facility] % Neutrophils 79 % 01/28/2024 6:51 PM PROGRAM AIDE GROUP WORK [facility] % Lymphocytes 15 % 01/28/2024 6:51 PM PROGRAM AIDE GROUP WORK [facility] % Monocytes 6 % 01/28/2024 6:51 PM PROGRAM AIDE GROUP WORK [facility] % Eosinophils 0 % 01/28/2024 6:51 PM PROGRAM AIDE GROUP WORK [facility] % Basophils 0 % 01/28/2024 6:51 PM PROGRAM AIDE GROUP WORK [facility] % Immature Granulocytes 0 % 01/28/2024 6:51 PM PROGRAM AIDE GROUP WORK [facility] NRBCs per 100 WBC 0 <1 /100 024 6:51 PM PROGRAM AIDE GROUP WORK [facility] Absolute Neutrophils 11.4(H) 1.6 - 8.3 10e3/uL 01/28/2024 6:51 PM PROGRAM AIDE GROUP WORK [facility] Absolute Lymphocytes 2.2 0.8 - 5.3 10e3/uL 01/28/2024 6:51 PM PROGRAM AIDE GROUP WORK [facility] Absolute Monocytes 0.8 0.0 - 1.3 10e3/uL 01/28/2024 6:51 PM PROGRAM AIDE GROUP WORK [facility] Absolute Eosinophils 0.0 0.0 - 0.7 10e3/uL 01/28/2024 6:51 PM PROGRAM AIDE GROUP WORK [facility] Absolute Basophils 0.0 0.0 - 0.2 10e3/uL 01/28/2024 6:51 PM PROGRAM AIDE GROUP WORK [facility] Absolute Immature Granulocytes 0.1 <=0.4 10e3/uL 01/28/2024 6:51 PM PROGRAM AIDE GROUP WORK [facility] Absolute NRBCs 0.0 10e3/uL 01/28/2024 6:51 PM PROGRAM AIDE GROUP WORK [facility] Blood STRUCTURE OF LEFT UPPER LIMB / Unknown Venipuncture / Unknown 01/28/2024 6:44 PM PROGRAM AIDE GROUP WORK 01/28/2024 6:47 PM PROGRAM AIDE GROUP WORK Emily Romo MD LAB - BLOOD ORDERABL ES [facility] LABORATORY [facility] Acute Care Lab [address] [facility] Lab (1st floor, no room number) [place] [address], [place] [phone] * Troponin T, High Sensitivity (now) (01/28/2024 6:44 PM PROGRAM AIDE GROUP WORK) [facility] Troponin T, High Sensitivity 9 <=14 ng/L 01/28/2024 7:09 PM PROGRAM AIDE GROUP WORK [facility] LABORAT[facility] Comment: Either a High Sensitivity [...] follow-up, or urgent outpatient provocative testing. Blood STRUCTURE OF LEFT UPPER LIMB / Unknown Venipuncture / Unknown 01/28/2024 6:44 PM PROGRAM AIDE GROUP WORK 01/28/2024 6:47 PM PROGRAM AIDE GROUP WORK Emily Romo MD LAB - BLOOD ORDERABL ES LABORATORY [facility] Acute Care Lab [address] Lab (1st floor, no room number) [place] [address], [place] [phone] * Basic metabolic panel (BMP) (01/28/2024 6:44 PM PROGRAM AIDE GROUP WORK) [facility] Sodium 137 135 - 145 mmol/L 01/28/2024 7:09 PM [facility] LABORATORY Comment:Reference intervals for this test were updated on 08/24/2023 to more accurately reflect our healthy population. There may be differences in the flagging of prior results with similar values performed with this method. Interpretation of those prior results can be made in the context of the updated reference intervals. Potassium 3.7 3.4 - 5.3 mmol/L 01/28/2024 7:09 PM [facility] Chloride 100 98 - 107 mmol/L 01/28/2024 7:09 PM [facility] Carbon Dioxide (CO2) 22 22 - 29 mmol/L 01/28/2024 7:09 PM [facility] Anion Gap 15 7 - 15 mmol/L 01/28/2024 7:09 PM [facility] Urea Nitrogen 17.0 6.0 - 20.0 mg/dL 01/28/2024 7:09 PM [facility] Creatinine 0.83 0.51 - 0.95 mg/dL 01/28/2024 7:09 PM [facility] GFR Estimate >90 >60 mL/min/1. 73m2 01/28/2024 7:09 PM [facility] Calcium 9.5 8.6 - 10.0 mg/dL 01/28/2024 7:09 PM [facility] Glucose 87 70 - 99 mg/dL 01/28/2024 7:09 PM [facility] Blood STRUCTURE OF LEFT UPPER LIMB / Unknown Venipuncture / Unknown 01/28/2024 6:44 PM PROGRAM AIDE GROUP WORK 01/28/2024 6:47 PM PROGRAM AIDE GROUP WORK Emily Romo MD LAB - BLOOD ORDERABL ES LABORATORY [facility] Acute Care Lab [address] [facility] Lab (1st floor, no room number) [place] [address], [place] [phone] * EKG 12-lead, tracing only (01/28/2024 5:54 PM PROGRAM AIDE GROUP WORK) Systolic Blood Pressure mmHg RADIOLOGY RESULTS Diastolic Blood Pressure mmHg RADIOLOGY RESULTS Ventricular Rate 124 BPM RAD IOLOGY RESULTS Atrial Rate 124 BPM RADIOLOG Y RESULTS OR Interval 170 ms RADIOLOG Y RESULTS QRS Duration 64 ms RADIOLO GY RESULTS QT 286 ms RADIOLOGY RESULTS QTc 410 ms RADIOLOGY RESULTS P [place] 60 degrees RADIOLOGY RESULTS R [place] 10 degrees RADIOLOGY RESULTS T [place] 21 degrees RADIOLOGY RESULTS Interpretation ECG Sinus tachycardia Possible Inferior infarct , age undetermined Cannot rule out Anterior infarct (cited on or before 04-JAN-2024) Abnormal ECG When compared with ECG of 18-JAN-2024 22:14, Left posterior fascicular block is no longer Present Questionable change in initial forces of Anterior leads Confirmed by - EMERGENCY ROOM, PHYSICIAN ([id number]), food editor VALENTE BROWNING ([id number]) on 01/31/2024 6:39:41 AM RADIOLOGY RESULTS 01/28/2024 5:54 PM PROGRAM AIDE GROUP WORK 01/31/2024 6:39 AM PROGRAM AIDE GROUP WORK Livia Gutierrez MD ECG ORDERABLES Performing Organization Address [facility] Co de Phone Number RADIOLOGY RESULTS documented in this encounter Visit Diagnoses Diagnosis Syncope and collapse Rib pain on left side Chest pain, unspecified documented in this encounter Administered Medications Inactive Administered Medications - up to 3 most recent administrations Medication Order MAR Action Action Date Dose Rate Site HYDROmorphone (DILAUDID) half-tab 1 mg 1 mg, Oral, ONCE, On Wed01/28/24 at 2355, For 1 dose $Given 01/29/2024 12:17 AM PROGRAM AIDE GROUP WORK 1 mg HYDROmorphone (DILAUDID) tablet 2 mg 2 mg, Oral, ONCE, On Wed01/28/24 at 2125, For 1 dose $Given 01/28/2024 9:34 PM PROGRAM AIDE GROUP WORK 2 mg sodium chloride 0.9% BOLUS 1,000 mL Intravenous, 1,000 mL, ONCE, at 1,000 mL/hr, Administer over 1 Hours, On Wed01/28/24 at 1950, For 1 dose $New Bag 01/28/2024 7:25 PM PROGRAM AIDE GROUP WORK 1,000 mLs 1000 mL/hr sodium chloride 0.9% BOLUS 1,000 mL Intravenous, 1,000 mL, ONCE, at 1,000 mL/hr, Administer over 1 Hours, On Wed01/28/24 at 2125, For 1 dose $New Bag 01/28/2024 9:34 PM PROGRAM AIDE GROUP WORK 1,000 mLs 1000 mL/hr sodium chloride 0.9% BOLUS 500 mL Intravenous, 500 mL, ONCE, at 500 mL/hr, Administer over 1 Hours, On Wed01/28/24 at 2355, For 1 dose $New Bag 01/29/2024 12:17 AM PROGRAM AIDE GROUP WORK 500 mLs 500 mL/hr documented in this encounter Active and Recently Administered Medications Times are shown in PROGRAM AIDE GROUP WORK. Scheduled Medication Order 01/27/2024 01/28/2024 01/29/2024 HYDROmorphone (DILAUDID) half-tab 1 mg (COMPLETED) 1 mg, Oral, ONCE, On Wed01/28/24 at 2355, For 1 dose 16 ($Given - Provi rosita: Evie Brenner RN - Comment: Scanner in room not availible.) HYDROmorphone (DILAUDID) tablet 2 mg (COMPLETED) 2 mg, Oral, ONCE, On Wed01/28/24 at 2124, For 1 dose 2133 ($Given - Provider: Genie Pavon RN) sodium chloride 0.9% BOLUS 1,000 mL (COMPLETED) Intravenous, 1,000 mL, ONCE, at 1,000 mL/hr, Administer over 1 Hours, On Wed01/28/24 at 1950, For 1 dose 1924 ($New Bag - Provider: Genie Pavon RN)2132 (Stopped - Provider: Genie Pavon RN) sodium chloride 0.9% BOLUS 1,000 mL (COMPLETED) Intravenous, 1,000 mL, ONCE, at 1,000 mL/hr, Administer over 1 Hours, On Wed01/28/24 at 2125, For 1 dose 2133 ($New Bag - Provider: Genie Pavon RN) 16 (Stopped - Provider: Evie Brenner RN) sodium chloride 0.9% BOLUS 500 mL (COMPLETED) Intravenous, 500 mL, ONCE, at 500 mL/hr, Administer over 1 Hours, On Wed01/28/24 at 2355, For 1 dose 0017 ($New Bag - Provider: Evie Brenner, RN - Comment: Scanner in room not accessible)0103 (Stopped - Provider: Nahed Diaz RN) 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 Rule Out COVID-19 01/28/2024 01/28/2024 01/28/2024 10:22 PM PROGRAM AIDE GROUP WORK Assessment Noted Time PHQ-9 Depression Total Score: 3 05/27/20 23 5:00 PM CDT documented as of this encounter Care Teams Operations Intern Relationship Specialty [place] [address] [address] [address] PCP - General Family Medicine 04/22/23 [place] [address] [place] [address] Assigned Pain Medication Provider 12/07/22 [place] [address] [address] Assigned PCP 01/23/23 [place] [address] [place] [address] Assigned Musculoskeletal Provider 01/23/23 Gregorio Dalton PA-C [address] [address] Assigned Surgical Provider 05/22/23 Kingsley Garcia MD [address] [place] [address] Assigned Heart and Vascular Provider 08/07/23 [place] [address] [address] [address] Family Medicine 09/10/23 Master Shea PA-C [address] [place] [address] Physician [facility] Gastroenterology 09/10/23 Allyssa Justice MD [facility] [address] [address] Hematology & Oncology 12/10/23 Genaro Christian MD [address] [place] [address] Cardiovascular Disease 12/22/23 Master Shea PA-C [address] [place] [address] Assigned Gastroenterology Provider 12/23/23 Sienna Guillermo DO [address] [place] [address] Physician Cardiovascular Disease 01/18/24 documented as of this encounter
--- OUTSIDE RECORDS SUMMARY | 2024-03-25 18:18 | XMS_ITS | Encounter Summary ---
Author Name Unknown Organization [place] Address [id number] [place] [address] Care Team Providers Care Business Continuity Specialist Name Role Phone Segundo Mcclelland MD Unavailable [phone] Segundo Mcclelland MD Unavailable [phone] Qamar Jackson MD Unavailable Segundo Mcclelland MD Primary Care Provider + Gregorio Dalton PA-C Unavailable [phone] Kingsley Garcia MD Unavailable + [phone] Segundo Mcclelland MD Unavailable [phone] Master Shea PA-C Unavailable Allyssa Justice MD Unavailable [phone] Genaro Christian MD Unavailable + [phone] Master Shea-Shirley Unavailable Sienna Guillermo DO Unavailable [phone] Encounter Details Date Type Department Care Team (Late st Contact Info) Description 01/18/2024 MyC Medical Advice [facility] [address] [place] [address] Brittney Reyes RN Social History Tobacco Use Types Packs/Day [...] encounter Miscellaneous Notes * Telephone Encounter - Mercedes Young RN - 01/18/2024 11:51 AM CST Patient called back, assisted with scheduling appointments. 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 Assessment Noted Time PHQ-9 Depression Total Score: 3 05/27/20 23 5:00 PM CDT documented as of this encounter Care Teams Business Continuity Specialist Relationship Specialty Start [place] [address] [address] [address] PCP - General Family Medicine 04/22/23 [place] [address] [address] [address] Assigned Pain Medication Provider 12/07/22 [place] [address] [address] [address] Assigned PCP 01/23/23 [place] [address] [place] [address] Assigned Musculoskeletal Provider 01/23/23 Gregorio Dalton PA-C [address] [address] Assigned Surgical Provider 05/22/23 Kingsley Garcia MD [address] [place] [address] Assigned Heart and Vascular Provider 08/07/23 [place] [address] [address] [address] Family Medicine 09/10/23 Master Shea PA-C [address] [place] [address] Physician [employer] Gastroenterology 09/10/23 Allyssa Justice MD [facility] [address] [place] [address] Hematology & Oncology 12/10/23 Genaro Christian MD [address] [place] [address] Cardiovascular Disease 12/22/23 Master Shea PA-C [address] [place] [address] Assigned Gastroenterology Provider 12/23/23 Sienna Guillermo DO [address] [place] [address] Physician Cardiovascular Disease 01/18/24 documented as of this encounter
--- OUTSIDE RECORDS SUMMARY | 2024-03-25 18:18 | XMS_ITS | Encounter Summary ---
Author Name Unknown Organization Anna Address [facility] [place] [address] Care Team Providers Care Sanding Machine Operator Or Tender Name Role Phone Segundo Mcclelland MD Unavailable [phone] Segundo Mcclelland MD Unavailable [phone] Qamar Jackson MD Unavailable Segundo Mcclelland MD Primary Care Provider + Gregorio Dalton PA-C Unavailable [phone] Kingsley Garcia MD Unavailable + [phone] Segundo Mcclelland MD Unavailable [phone] Master Shea PA-C Unavailable Allyssa Justice MD Unavailable [phone] Genaro Christian MD Unavailable Master Shea-C Unavailable Sienna Guillermo DO Unavailable Reason for Visit * Reason Comments Syncope Fall Encounter Details Date Type Department Care Team (Late st Contact Info) Description 01/19/2024 12:01 AM STEREOPLOTTER OPERATOR - 01/19/2024 5:04 AM [facility] Emergency Dept [address] [place] [id number] Janie Arellano MD [facility] [address] [place] [address] Syncope, unspecified syncope type; Acute pain of right shoulder Discharge Disposition: Home or Self Care Social [...] Sign Reading Time Taken Comments Blood Pressure 114/89 01/19/2024 12:30 AM STEREOPLOTTER OPERATOR Pulse 105 01/19/2024 4:03 AM STEREOPLOTTER OPERATOR Temperature 37.5 ??C (99.5 ??F) 01/18/2024 10:[address] Respiratory Rate 12 01/19/2024 4:03 AM STEREOPLOTTER OPERATOR Oxygen Saturation 96% 01/19/2024 4:03 AM STEREOPLOTTER OPERATOR Inhaled Oxygen Concentration - - Weight - - Height - - Body Mass Index - - documented in this encounter Discharge Instructions * Discharge Instructions* Janie Arellano MD - 01/19/2024 4:37 AM STEREOPLOTTER OPERATOR Follow-up with Dr. Mcclelland. Tylenol as needed for pain. EOPLOTTER OPERATOR * Attachments The following attachments cannot be sent through Care Everywhere. * Musculoskeletal Pain (Portuguese) * Fainting (Portuguese) documented in this encounter Medications at Time [...] anxiety naloxone (NARCAN) 4 MG/0.1ML nasal spray [place] 4 mg into one nostril alternating nostrils [...] 12/20/2023 02/03/2024 pantoprazole (PROTONIX) 40 MG EC tabletIndications:Ejnnifer roesophageal reflux disease with esophagitis, unspecified whether hemorrhage Take 1 tablet (40 mg) by mouth 2 times daily (before meals) 180 tablet 1 07/23/2023 03/06/2024 phenazopyridine (PYRIDIUM) 100 MG tablet Take 1 tablet (100 mg) by mouth 3 times daily as needed for urinary tract discomfort 9 tablet 01/08/2024 03/01/2024 documented as of this encounter ED Notes * Chastity Trent RN - 01/18/2024 10:12 PM CST Patient went to [facility] and patient reports that they were unable to access an IV so they dischargedher. Patient reports that she made it home and passed out on her front porch. Patient reports according to her porch camera, she hit her right shoulder and the right side of her chest. Pt reports sheis on blood thinner. Patient reports she called the nurse hot line and told the nurse that [facility] did not want her and the nurse hotline told her to go to [facility] ED. Patient called her ex- and he dropped her off at [facility] ED. Triage Assessment (Adult) Row Name 01/18/24 1932 Triage Assessment Airway WDL WDL Respiratory WDL Respiratory WDL WDL Skin Circulation/Temperature WDL Skin Circulation/Temperature WDL WDL Cardiac WDL Cardiac WDL WDL Cardiac Rhythm NSR Peripheral/Neurovascular WDL Peripheral Neurovascular WDL WDL Cognitive/Neuro/Behavioral WDL Cognitive/Neuro/Behavioral WDL WDL EOPLOTTER OPERATOR * Janie Arellano MD - 01/18/2024 9:57 PM CST History Chief Complaint: Syncope and Fall The history is provided by the patient. Sandi Lopez is a 38 year old female with a history of POTS, PE on Eliquis, and gastroparesis who presents with syncope. Ting is well-known to this emergency department. She was seen at [facility] today as she has been feeling unwell (vomiting and syncope) which she presumes to be related to influenza as all 3 of her children have tested positive for this. Her workup did not reveal any emergent conditions and she was discharged. She reports she syncopized as she was going into her home. She watched this on her video doorbell and saw that she hit her shoulder and then her head. She does not have any concerns about head injury as she feels this was the last thing to hit and she does nothave headache. Her primary concern is right clavicular and shoulder pain. She has some dried blood on her hand which she believes came from her mouth. She also spends a lot of time talking about the need for IV fluids and that the emergency department and her primary care provider are putting me in the middle of caring for her. She tells me she recently stopped her Dilaudid as her only withdrawal symptom was diarrhea. She tells me her primary care provider is looking into getting her a port. Independent Historian: As above Review of External Notes: Primary care provider note 01/17/2024. Nurse triage call today as well as [facility] emergency department visit today and second nurse triage call after that visit. Medications: acetaminophen (TYLENOL) 325 MG tablet apixaban ANTICOAGULANT (ELIQUIS) 5 MG tablet bacitracin 500 UNIT/GM external ointment childrens multivitamin w/iron (FLINTSTONES COMPLETE) chewable tablet Cholecalciferol (VITAMIN D3) 50 MCG (1999 UT) CAPS diphenhydrAMINE (BENADRYL) 25 MG capsule EPINEPHrine (ANY BX GENERIC EQUIV) 0.3 MG/0.3ML injection 2-pack folic acid (FOLVITE) 1 MG tablet gabapentin (NEURONTIN) 800 MG tablet HYDROmorphone (DILAUDID) 4 MG tablet - patient reportedly stopped this LORazepam (ATIVAN) 1 MG tablet naloxone (NARCAN) [...] Rafael Vela DO; Location: OR BACK SURGERY 2018 CAUTERY OF CERVIX, CRYOCAUTERY 05/2004 CERCLAGE CERVICAL [...] Procedure: ESOPHAGOGASTRODUODENOSCOPY; Surgeon: Meg Lee MD; Location: [facility]; Service: ESOPHAGOSCOPY, GASTROSCOPY, DUODENOSCOPY (EGD), COMBINED N/A 02/13/2016 Procedure: ESOPHAGOGASTRODUODENOSCOPY; Surgeon: Meg Lee MD; Location: [facility] Main OR; Service: ESOPHAGOSCOPY, GASTROSCOPY, DUODENOSCOPY (EGD), [...] > 5 YRS OF AGE 0807/29/2023 IR PICC PLACEMENT > 5 YRS OF AGE 0112/24/2020 IR PORT REMOVAL LEFT 11/12/2023 IRRIGATION AND DEBRIDEMENT FOOT, COMBINED Right 2023 Procedure: Right heel debridement; Surgeon: Farrah Nguyen DPM; Location: OR LARYNGOSCOPY N/A 02/14/2016 Procedure: DIRECT LARYNGOSCOPY, UPPER ESOPHAGOSCOPY, NASAL ESOPHAGOSCOPY, CONTROLLED EPITAXIS; Surgeon: Declan Mata MD; Location: [facility] Main OR; Service: OOPHORECTOMY Right Talar fracture lt foot surgery 10/1998 TONSILLECTOMY & ADENOIDECTOMY 1995 TRANSESOPHAGEAL ECHOCARDIOGRAM INTRAOPERATIVE N/A 09/17/2021 Procedure: ECHOCARDIOGRAM, TRANSESOPHAGEAL, INTRAOPERATIVE; Surgeon: GENERIC ANESTHESIA PROVIDER; Location: OR TUBAL LIGATION Physical Exam Patient Vitals for the past 24 hrs: BP Temp Temp src Pulse Resp SpO2 01/19/2431 -- -- -- 111 11 96 % 01/19/2429 114/89 -- -- 117 -- -- 01/18/24 2208 (!) 153/91 99.5 ??F (37.5 ??C) Temporal (!) 129 18 97 % Vitals: 01/19/243101/19/24 0329 01/19/24 0403 BP: Pulse: 111 103 105 Resp: 11 11 12 Temp: SpO2: 96% 96% Physical Exam General: Well-developed and well-nourished. Well appearing young woman. Cooperative. Head: Atraumatic. Eyes: Conjunctivae, lids, and sclerae are normal. ENT: Normal nose. Moist mucous membranes. No evidence of intraoral trauma or recent bleeding. Neck: Supple. Normal range of motion. CV: Warm and well-perfused. Mildly tachycardic. Resp: No respiratory distress. GI: Non-distended. MS: Decreased range of motion of the right shoulder secondary to pain. Tenderness primarily anterior laterally and along the right clavicle without obvious deformity. No tenderness of the right wristor elbow. Skin: Warm. Non-diaphoretic. No pallor. Neuro: Awake. A&Ox3. Normal strength. Psych: Normal mood and affect. Normal speech. Vitals reviewed. Emergency Department Course EKG Indication: syncope Time: 0155 Rate 132 bpm. GA interval 142. QRS duration 68. QT/QTc 274/405. Sinus tachycardia Left posterior fascicular block Anterior infarct, age undetermined Abnormal ECG No acute ST changes. No change as compared to prior, dated 01/18/24 (prior visit). Imaging: Clavicle XR, right Final Result IMPRESSION: Normal joint spaces and alignment. No fracture or dislocation. XR Shoulder Right G/E 3 Views Final Result IMPRESSION: Normal joint spaces and alignment. No fracture or dislocation. Emergency Department Course & Assessments: Interventions: Medications sodium chloride 0.9% BOLUS 1,000 mL (1,000 mLs Intravenous Stopped 01/19/24 0438) HYDROmorphone (DILAUDID) tablet 2 mg (2 mg Oral $Given 01/19/24 0147) Assessments: 0432 I updated the patient on findings and plan for discharge. She requests more narcotics and I refused. She tells me her primary care provider is okay with her having 4 mg of Dilaudid and I only gave her 2 mg. I informed her she does not need narcotics for influenza nor shoulder injury without fracture or dislocation and she has already generously received 2 mg of Dilaudid today. Independent Interpretation (X-rays, CTs, rhythm strip): I independently interpreted the x-rays of the clavicle and shoulder and see no fracture or malalignment. Consultations/Discussion of Management or Tests: Not applicable Social Determinants of Health affecting care: Overuse of the emergency department Chronic opiate and benzodiazepine use Has children Disposition: Discharged Impression & Plan Medical Decision Making: Sandi is a 38 year old woman well known to [facility] and [facility] emergency departments (today is the 10th visit in 30 days) with history of POTS, gastroparesis, and PE on Eliquis who presents yet again with report of syncope. She was actually seen at [facility] earlier today for syncope which she attributes to having influenza. She tells me all 3 of her children tested positive for influenza and blatantly lied to me telling me a nurse told her the influenza swab at [facility] was positive when in actuality she refused the influenza swab. It is reasonable to assume she has influenza, however, if her children do. She reports a second episode of syncope as soon as she returned home where and she injured her shoulder. This prompted her return visit. Fortunately, she is well- appearing on exam. She does have mild tachycardia and decreased range of motion of the right shoulder secondary to pain. Laboratory studies were obtained today which I reviewed and they do not warrant repeat. EKG is reassuring without acute ST changes or arrhythmias and unchanged from her visit earlier today. Fortunately, x-ray of the right clavicle and shoulder are without fracture or malalignment. She reports any head injury she sustained was mild and I think head CT can safely be deferred. We were able to place an IV in order to administer fluids given report of syncope and TANYA. She did not have emesis in the ED nor did I observe cough or other evidence of viral illness. She spends a lot of time talking about her opiate use and that she elected to go off of Dilaudid although her primary care provider was willing to refill it. I do not see obvious documentation of this in her chart but she was chronically on Dilaudid so I did give her 2 mg of oral Dilaudid for her shoulder pain prior to XR results. Of course, upon repeat evaluation she is requesting additional Dilaudid though I informed her that narcotics are not indicated for influenza like illness nor for shoulder pain without fracture or malalignment. I did offer to give her Tylenol but she feels she has had too much of this already today. I recommended she continue this at home and continue to work with her primary care provider. I am certain this woman will return to medical attention soon given her pattern of visits, though there is no emergent condition identified at this time. Diagnosis: ICD-10-CM 1. Syncope, unspecified syncope type R55 2. Acute pain of right shoulder M25.511 Discharge Medications: Discharge Medication List as of 01/19/2024 4:39 AM 01/19/2024 Janie Arellano MD Dixson, Kylie S, MD 01/20/24 1451 EOPLOTTER OPERATOR documented in this encounter Plan of Treatment Upcoming Encounters Date Type Department Care Team (Late st Contact Info) Description 05/09/2024 10:00 AM CDT Office Visit [facility] [id number] [place] [phone] [place] [address] [place] [address] documented as of this encounter Procedures Procedure Name Priority Date/Time Associated Diagnosis Comments XR CLAVICLE RIGHT 2 VIEWS STAT 01/19/2024 2:12 AM STEREOPLOTTER OPERATOR XR SHOULDER RIGHT G/E 3 VIEWS STAT 01/19/2024 2:11 AM STEREOPLOTTER OPERATOR EKG 12-LEAD, TRACING ONLY STAT 01/18/2024 10:14 PM STEREOPLOTTER OPERATOR documented in this encounter Results * Clavicle XR, right (01/19/2024 2:12 AM STEREOPLOTTER OPERATOR) Anatomical Region Laterality Modality Upper Extremity Right Digital Radiogra phy 01/19/2024 2:12 AM STEREOPLOTTER OPERATOR Impressions 01/19/2024 2:22 AM STEREOPLOTTER OPERATOR IMPRESSION: Normal joint spaces and alignment. No fracture or dislocation. Narrative 01/19/2024 2:22 AM STEREOPLOTTER OPERATOR EXAM: XR CLAVICLE RIGHT 2 VIEWS, XR SHOULDER RIGHT G/E 3 VIEWS LOCATION: [facility] DATE: 01/19/2024 INDICATION: fall, ??pain COMPARISON: Two-view chest radiograph 12/19/23 Procedure Note Suman Parada MD - 01/19/2024 EXAM: XR CLAVICLE RIGHT 2 VIEWS, XR SHOULDER RIGHT G/E 3 VIEWS LOCATION: [facility] DATE: 01/19/2024 INDICATION: fall, pain COMPARISON: Two-view chest radiograph 12/19/23 IMPRESSION: Normal joint spaces and alignment. No fracture ordislocation. Janie CRAIG DIAGNOSTIC IMAGI NG ORDERABLES * XR Shoulder Right G/E 3 Views (01/19/2024 2:11 AM STEREOPLOTTER OPERATOR) Anatomical Region Laterality Modality Shoulder, Right Shoulder Right Digital Radiography 01/19/2024 2:11 AM STEREOPLOTTER OPERATOR Impressions 01/19/2024 2:22 AM STEREOPLOTTER OPERATOR IMPRESSION: Normal joint spaces and alignment. No fracture or dislocation. Narrative 01/19/2024 2:22 AM STEREOPLOTTER OPERATOR EXAM: XR CLAVICLE RIGHT 2 VIEWS, XR SHOULDER RIGHT G/E 3 VIEWS LOCATION: [facility] DATE: 01/19/2024 INDICATION: fall, ??pain COMPARISON: Two-view chest radiograph 12/19/23 Procedure Note Suman Parada MD - 01/19/2024 EXAM: XR CLAVICLE RIGHT 2 VIEWS, XR SHOULDER RIGHT G/E 3 VIEWS LOCATION: [facility] DATE: 01/19/2024 INDICATION: fall, pain COMPARISON: Two-view chest radiograph 12/19/23 IMPRESSION: Normal joint spaces and alignment. No fracture ordislocation. Janie CRAIG DIAGNOSTIC IMAGI NG ORDERABLES * EKG 12 lead (01/18/2024 10:14 PM STEREOPLOTTER OPERATOR) Systolic Blood Pressure mmHg RADIOLOGY RESULTS Diastolic Blood Pressure mmHg RADIOLOGY RESULTS Ventricular Rate 132 BPM RAD IOLOGY RESULTS Atrial Rate 132 BPM RADIOLOG Y RESULTS GA Interval 142 ms RADIOLOG Y RESULTS QRS Duration 68 ms RADIOLO GY RESULTS QT 274 ms RADIOLOGY RESULTS QTc 405 ms RADIOLOGY RESULTS P [place] 32 degrees RADIOLOGY RESULTS R AXIS 134 degrees RADIOLOGY RESULTS T [place] 7 degrees RADIOLOGY RESULTS Interpretation ECG Sinus tachycardia Left posterior fascicular block Anterior infarct , age undetermined Abnormal ECG When compared with ECG of 18-JAN-2024 16:26, (unconfirmed) Left posterior fascicular block is now Present Anterior infarct is now Present Criteria for Inferior infarct are no longer Present Confirmed by GENERATED REPORT, COMPUTER ([id number]), editor greeting card Cassandra Buckner ([id number]) on 01/18/2024 10:50:21 PM RADIOLOGY RESULTS 01/18/2024 10:1 4 PM STEREOPLOTTER OPERATOR 01/18/2024 10:50 PM STEREOPLOTTER OPERATOR aJnie Arellano MD ECG ORDERABLES RADIOLOGY RESULTS documented in this encounter Visit Diagnoses Diagnosis Syncope, unspecified syncope type Acute pain of right shoulder documented in this encounter Administered Medications Inactive Administered Medications - up to 3 most recent administrations Medication Order MAR Action Action Date Dose Rate Site HYDROmorphone (DILAUDID) tablet 2 mg 2 mg, Oral, ONCE, On Wed01/19/24 at 0145, For 1 dose $Given 01/19/2024 1:47 AM STEREOPLOTTER OPERATOR 2 mg sodium chloride 0.9% BOLUS 1,000 mL Intravenous, 1,000 mL, ONCE, at 1,000 mL/hr, Administer over 1 Hours, On Wed01/19/24 at 0145, For 1 dose $New Bag 01/19/2024 1:47 AM STEREOPLOTTER OPERATOR 1,000 mLs 1000 mL/hr documented in this encounter Active and Recently Administered Medications Times are shown in STEREOPLOTTER OPERATOR. Scheduled Medication Order 01/17/2024 01/18/2024 01/19/2024 HYDROmorphone (DILAUDID) tablet 2 mg (COMPLETED) 2 mg, Oral, ONCE, On Wed01/19/24 at 0145, For 1 dose 0147 ($Given - Provi rosita: Miranda Alexandra RN) sodium chloride 0.9% BOLUS 1,000 mL (COMPLETED) Intravenous, 1,000 mL, ONCE, at 1,000 mL/hr, Administer over 1 Hours, On Wed01/19/24 at 0145, For 1 dose 0147 ($New Bag - Pro vider: Miranda Alexandra RN)[id number] (Stopped - Provider: Miranda Ibrahima, RN) 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 Assessment Noted Time PHQ-9 Depression Total Score: 3 05/27/20 23 5:00 PM CDT documented as of this encounter Care Teams Sanding Machine Operator Or Tender Relationship Specialty Start [place] [address] [address] PCP - General Family Medicine 04/22/23 [place] [address] [place] [address] Assigned Pain Medication Provider 12/07/22 [place] [address] [address] Assigned PCP 01/23/23 [place] [address] [place] [address] Assigned Musculoskeletal Provider 01/23/23 Gregorio Dalton PA-C [address] [place] [address] Assigned Surgical Provider 05/22/23 Kingsley Garcia MD [address] [place] [address] Assigned Heart and Vascular Provider 08/07/23 [place] [address] [address] Family Medicine 09/10/23 Master Shea PA-C [address] [place] [place] [address] Physician Drone Operator Gastroenterology 09/10/23 Allyssa Justice MD [facility] [address] [id number] Hematology & Oncology 12/10/23 Genaro Christian MD [address] [place], [place] [address] Cardiovascular Disease 12/22/23 Master Shea PA-C [address] [place] [address] [place] [address] Assigned Gastroenterology Provider 12/23/23 Sienna Guillermo DO [address] [place] [address] Physician Cardiovascular Disease 01/18/24 documented as of this encounter
--- OUTSIDE RECORDS SUMMARY | 2024-03-25 18:18 | XMS_ITS | Encounter Summary ---
Author Name Unknown Organization Lodge Address [facility] [place] [address] Care Team Providers Care Crimping Press Operator Name Role Phone Segundo Mcclelland MD Unavailable [phone] Segundo Mcclelland MD Unavailable [phone] Qamar Jackson MD Unavailable Segundo Mcclelland MD Primary Care Provider + Gregorio Dalton PA-C Unavailable [phone] Kingsley Garcia MD Unavailable [phone] Segundo Mcclelland MD Unavailable [phone] Master Shea PA-C Unavailable Allyssa Justice MD Unavailable [phone] Genaro Christian MD Unavailable [phone] Master Shea-Shirley Unavailable Sienna Guillermo DO Unavailable [phone] Reason for Visit * Reason Onset Date Comments Appointment 01/18/2024 Encounter Details Date Type Department Care Team (Late st Contact Info) Description 01/18/2024 Telephone [facility] [address] [place] [address] [place] [address] [place] [address] Appointment Social History Tobacco Use Types Packs/Day Years [...] Encounter - Mercedes Young RN - 01/18/2024 11:52 AM CST Patient called back, assisted to schedule appointments. DONNA Long on 01/18/2024 at 11:53 AM [facility] * Telephone Encounter - Brittney Reyes RN - 01/18/2024 10:57 AM CST Attempted to call patient x 4. Contacted Cardiology as patient has not called back. Informed could not reach patient and will keepscheduled appointment for 03/23. Will call Cardiology to help schedule when patient calls back. Brittney Reyes RN [facility] * Telephone Encounter - Brittney Reyes, RN - 01/18/2024 8:54 AM CST Images from the original note were not included. Segundo Mcclelland MD P Rm Triage Pt is current scheduled to see cards 03/23. She really needs to be seen sooner. Can they get her in before that? -S Spoke with Cardiology. They have sooner appointment at [facility] for 01/20 at 9:[address] Guillermo. Cheesemaker will hold for 1 hour. LM and sent mychart for patient to call. Also appt today available at [facility] at 12 noon with Mima. Otherwise would need to see AP first on 02/07 at [facility] and keep appt with Mima on 03/23. Contact Cardio [phone] when patient calls back as will need to cancel 01/20 or 03/23 appointment. Patient advised to call triage STEF per messages. Brittney Reyes RN [facility] documented in this encounter Plan of Treatment Upcoming Encounters Date Type Department Care Team (Late st Contact Info) Description 05/09/2024 10:00 AM CDT Office Visit [facility] [address] [place] [address] [place] [address] [place] [address] documented as of this encounter Visit Diagnoses Not on file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 Assessment Noted Time PHQ-9 Depression Total Score: 3 05/27/20 23 5:00 PM CDT documented as of this encounter Care Teams Crimping Press Operator Relationship Specialty Start [place] [address] [place] [address] PCP - General Family Medicine 04/22/23 [place] [address] [place] [address] Assigned Pain Medication Provider 12/07/22 [place] [address] [place] [address] Assigned PCP 01/23/23 [place] [address] [place] [address] Assigned Musculoskeletal Provider 01/23/23 Gregorio Dalton PA-C [address] [place] [address] Assigned Surgical Provider 05/22/23 Kingsley Garcia MD [address] [place] [address] Assigned Heart and Vascular Provider 08/07/23 [place] [address] [place] [address] Family Medicine 09/10/23 Master Shea PA-C [address] [place] [place] [address] Physician Fueler Gastroenterology 09/10/23 Allyssa Justice MD [facility] [address] [place] [address] Hematology & Oncology 12/10/23 Genaro Christian MD [address] [place] [address] Cardiovascular Disease 12/22/23 Master Shea PA-C [address] [place] [address] Assigned Gastroenterology Provider 12/23/23 Sienna Guillermo DO [address] [place] [address] Physician Cardiovascular Disease 01/18/24 documented as of this encounter
--- OUTSIDE RECORDS SUMMARY | 2024-03-25 18:18 | XMS_ITS | Encounter Summary ---
Author Name Unknown Organization [facility] Address [address] [place] [address] Care Team Providers Care Childhood Teacher Name Role Phone Segundo Mcclelland MD Unavailable [phone] Segundo Mcclelland MD Unavailable [phone] Qamar Jackson MD Unavailable Segundo Mcclelland MD Primary Care Provider + Gregorio Dalton PA-C Unavailable [phone] Kingsley Garcia MD Unavailable [phone] Segundo Mcclelland MD Unavailable Master Shea PA-C Unavailable Allyssa Justice MD Unavailable [phone] Genaro Christian MD Unavailable Master Shea PA-C Unavailable Reason for Visit * Reason Comments Palpitations Encounter Details Date Type Department Care Team (Late st Contact Info) Description 01/14/2024 10:56 PM CRYSTAL LAPPER - 01/15/2024 3:24 AM CRYSTAL LAPPER [facility] Emergency Dept [address] [place] [address] Sam Martini MD [facility] [address] [place] [address] Tachycardia; Opiate withdrawal (H); Elevated liver function tests Discharge Disposition: Home or Self Care Social [...] Sign Reading Time Taken Comments Blood Pressure 117/61 01/15/2024 1:03 AM CRYSTAL LAPPER Pulse 104 01/15/2024 2:52 AM CRYSTAL LAPPER Temperature 36.3 ??C (97.4 ??F) 01/14/2024 10:[address] Respiratory Rate 15 01/15/2024 2:52 AM CRYSTAL LAPPER Oxygen Saturation 100% 01/15/2024 2:52 AM CRYSTAL LAPPER Inhaled Oxygen Concentration - - Weight - - Height - - Body Mass Index - - documented in this encounter Discharge Instructions * Discharge Instructions* Sam Martini MD - 01/15/2024 3:06 AM CRYSTAL LAPPER Your heart rate has improved in the emergency department and your workup is overall reassuring. Youdo have some mild elevation of your liver function test, which have been present in the past as well. Please continue using your home medications as discussed with your primary care doctor. You reported that you have Dilaudid at home which she can continue to use to address possible opiate withdrawal symptoms. It is important that you speak with your primary care doctor to discuss receiving additional prescriptions for this and to continue to address your chronic symptoms. TAL LAPPER * Attachments The following attachments cannot be sent through Care Everywhere. * Opioid Withdrawal (Somali) documented in this encounter Medications at Time [...] anxiety naloxone (NARCAN) 4 MG/0.1ML nasal spray [place] 4 mg into one nostril alternating nostrils [...] as of this encounter ED Notes * Livier White RN - 01/14/2024 10:56 PM CST Bed: ED01 Expected date: Expected time: Means of arrival: Comments: Hold triage TAL LAPPER * Angelica Davidson RN - 01/14/2024 10:51 PM CST Images from the original note were not included. Hx of POTS and gastroparesis reports palpitations and lightheadedness tonight. Triage Assessment (Adult) Row Name 01/14/24 2080 Respiratory WDL Respiratory WDL WDL Cardiac WDL Cardiac WDL X palpitations Cognitive/Neuro/Behavioral WDL Cognitive/Neuro/Behavioral WDL WDL TAL LAPPER * Sam Martini MD - 01/14/2024 10:49 PM CST History Chief Complaint: Palpitations HPI Sandi Lopez is a 38 year old female on Eliquis with a history of POTS, anxiety who presentswith palpitations. The patient was feeling fine earlier today, then around 1999 while watching TV she developed intermittent palpitations and HR around 200 at home. She then drank a lot of water because she was worried she might be dehydrated but had an episode of vomiting after. She also endorses multiple near syncopal episodes and tinnitus. Upon speaking with the pt further, she believes her symptoms are related with withdrawal from opiates. Independent Historian: None - Patient Only Review of External Notes: I reviewed discharge summary from 01/09/24 with positive blood culture. Medications: Eliquis Benadryl Epinephrine Neurontin Ativan Protonix Pyridium Ambien Past Medical History: Anemia Atrial flutter Borderline personality disorder Drug-seeking behavior GERD Fertility problem Depression Opioid dependence Seizure as child Gastroparesis Hypertension Asthma PTSD Pulmonary embolism GI bleed Anxiety CANELO POTS Past Surgical History: Adenoidectomy Ankle surgery Appendectomy Meniscectomy Back surgery Cautery of cervix Cerclage EGD x 6 Cholecystectomy Hysterectomy Chest port placement Laryngoscopy Oophorectomy Tonsillectomy Physical Exam Patient Vitals for the past 24 hrs: BP Temp Temp src Pulse Resp SpO2 01/15/24 0252 -- -- -- 104 15 100 % 01/15/24 0245 -- -- -- 87 12 100 % 01/15/24 0224 -- -- -- 108 -- 99 % 01/15/24 0158 -- -- -- 113 -- 97 % 01/15/24 0103 117/61 -- -- 114 -- 98 % 01/15/24 0001 128/84 -- -- 117 18 96 % 01/14/24 2253 (!) 146/85 97.4 ??F (36.3 ??C) Temporal (!) 133 18 99 % Physical Exam General: Appears well-developed and well-nourished. Head: No signs of trauma. Mouth/Throat: Oropharynx is clear and moist. Eyes: Conjunctivae are normal. Neck: Normal range of motion. No nuchal rigidity. CV: Mild tachycardia Resp: Effort normal and breath sounds normal. No respiratory distress. GI: Soft. There is no tenderness. No rebound or guarding. Normal bowel sounds. No CVA tenderness. MSK: Normal range of motion. no edema. No Calf tenderness. Neuro: The patient is alert and oriented to person, place, and time. Speech normal. Skin: Skin is warm and dry. No rash noted. Psych: Tearful at times Emergency Department Course ECG ECG taken at 2246, ECG read at 2259 Sinus tachycardia Left axis deviation Possible inferior infarct, age undetermined Anterior infarct, age undetermined Abnormal ECG No significant changes as compared to prior, dated 01/08/24. Rate 127 bpm. VT interval 158 ms. QRS duration 68 ms. QT/QTc 294/457 ms. P-R-T axes 57 -36 29. Laboratory: Labs Ordered and Resulted from Time of ED Arrival to Time of ED Departure COMPREHENSIVE METABOLIC PANEL - Abnormal Result Value Sodium 134 (*) Potassium 4.1 Carbon Dioxide (CO2) 23 Anion Gap 13 Urea Nitrogen 14.3 Creatinine 0.71 GFR Estimate >90 Calcium 9.4 Chloride 98 Glucose 91 Alkaline Phosphatase 321 (*) AST 97 (*) ALT 149 (*) Protein Total 8.7 (*) Albumin 4.5 Bilirubin Total 0.2 CBC WITH PLATELETS AND DIFFERENTIAL - Abnormal WBC Count 12.5 (*) RBC Count 4.62 Hemoglobin 12.5 Hematocrit 38.0 MCV 82 MCH 27.1 MCHC 32.9 RDW 23.3 (*) Platelet Count 414 % Neutrophils 67 % Lymphocytes 26 % Monocytes 6 % Eosinophils 1 % Basophils 0 % Immature Granulocytes 0 NRBCs per 100 WBC 0 Absolute Neutrophils 8.4 (*) Absolute Lymphocytes 3.3 Absolute Monocytes 0.8 Absolute Eosinophils 0.1 Absolute Basophils 0.0 Absolute Immature Granulocytes 0.0 Absolute NRBCs 0.0 LIPASE - Normal Lipase 53 LACTIC ACID WHOLE BLOOD - Normal Lactic Acid 1.3 Procedures Bedside ED Peripheral Vein Cannulation using Ultrasound: PROCEDURE: PERFORMED BY: Dr. Martini INDICATIONS/SYMPTOM: IV fluids and labs PROBE: High frequency linear probe BODY LOCATION: The ultrasound was performed on the right forearm. FINDINGS: Artery and vein visualized. Vein completely compressible (ie collapsible) and no thrombusvisualized. INTERPRETATION: Patent vein confirmed with US. PIV inserted into vein utilizing real-time ultrasonic guidance. Emergency Department Course & Assessments: Interventions: Medications lactated ringers BOLUS 1,000 mL (1,000 mLs Intravenous $New Bag 01/15/24 0240) lactated ringers BOLUS 1,000 mL (0 mLs Intravenous Stopped 01/15/24 0241) apixaban ANTICOAGULANT (ELIQUIS) tablet 5 mg (5 mg Oral $Given 01/14/24 2355) diphenhydrAMINE (BENADRYL) capsule 25 mg (25 mg Oral $Given 01/14/24 2355) Assessments: 2327 I examined the patient and obtained history as shown above 0050 I rechecked the patient, she is requesting pain medications 0123 I rechecked the patient 0300 I rechecked the patient Independent Interpretation (X-rays, CTs, rhythm strip): None Consultations/Discussion of Management or Tests: I consulted with clinical pharmacist about the patients medications and care plan Social Determinants of Health affecting care: None Disposition: The patient was discharged. Impression & Plan [facility] Diagnoses: None Medical Decision Making: Sandi Lopez presents due to a feeling of racing heart rate. She reports that she developed this intermittently this evening while at rest. Throughout her time in the emergency department, thepatient was in a sinus rhythm. She initially did have mildly elevated heart rate, which she has hadin the past on chart review. She does have a history of POTS and felt like her symptoms were worse when she was standing. I was able to place an IV and she was given IV fluids. With this her heart rate did improve and was oftentimes less than 100 bpm. This seems to be her baseline heart rate. The remainder of her vital signs were reassuring. I did obtain blood work which showed a slight elevationof her LFTs, which again seems to be chronic and I did discuss this with the patient. There is no other concerning findings. Patient does not have any clear infectious type symptoms. In speaking withthe patient further, I believe that her symptoms are most likely related to opiate withdrawal. On chart review, I can see that the patient's primary care doctor has been weaning her prescription for hydromorphone. She had been given a prescription for 19 tablets of hydromorphone on 12/09 and 6 tablets on 12/20. Documentation from the patient's primary doctor does discuss decreasing the opiates and the primary care doctor had declined to refill the Dilaudid on 12/23/2023. Patient was requesting Dila udid in the emergency department. I discussed my concerns with the patient, and given her primary care doctor has declined to refill her prescription, I did not feel that it was appropriate to give her additional opiates in the emergency department for chronic symptoms. I do not see an emergent etiology requiring opiates. I did not feel that a CT scan was indicated, as she has had multiple CT scans recently and her workup and evaluation did not warrant this acutely tonight. Patient did ask for Dilaudid on a few occasions and states that her doctor had given her a paper prescription a few daysago that was filled at a different pharmacy. The patient could not recall what pharmacy this was filled out. I do not see any records of this in the prescription drug monitoring program and I did speak with the clinical pharmacist as well who reviewed the outpatient pharmacy records, which does notshow a more recent prescription being filled either. I discussed treatment for concerns for possible opiate dependence and withdrawal, although the patient was not interested at this time. I did not feel that clonidine would be indicated given the patient's history of POTS and orthostatic symptoms.She also lists an allergy to many antiemetics. Patient did not have any vomiting while in the emergency department and her vital signs did improve with IV fluids. She reports that she does have Dilaudid at home, and I recommended that she continue to use her home prescription for Dilaudid and that she follow-up with her doctor on 01/17 as she has planned to discuss continued management of her symptoms. I did review the director of healthcare systems note from 01/11/2024 that states that the patient is restricted to [facility]. When I discussed this with the patient, the patient reports that this was changed to [facility]. I do not see documentation of this, but did send a message to our director of healthcare systems to help clarify this. Diagnosis: ICD-10-CM 1. Tachycardia R00.0 2. Opiate withdrawal (H) F11.93 3. Elevated liver function tests R79.89 Discharge Medications: New Prescriptions No medications on file Scribe Disclosure: I, Aston Ruby, am serving as a scribe at 11:33 PM on 01/14/2024 to document services personally performed by Sam Martini MD based on my observations and the provider's statements to me. 01/14/2024 Sam Martini MD Bergenstal, John A, MD 01/15/24 0504 TAL LAPPER documented in this encounter Plan of Treatment Upcoming Encounters Date Type Department Care Team (Late st Contact Info) Description 05/09/2024 10:00 AM CDT Office Visit [facility] [address] [place] [address] [place] [address] [place] [address] documented as of this encounter Procedures Procedure Name Priority Date/Time Associated Diagnosis Comments CBC WITH PLATELETS AND DIFFERENTIAL STAT 01/15/2024 1:41 AM CRYSTAL LAPPER CBC WITH PLATELETS & DIFFERENTIAL STAT 01/15/2024 1:41 AM CRYSTAL LAPPER LIPASE STAT 01/15/2024 1:41 AM CRYSTAL LAPPER LACTIC ACID WHOLE BLOOD STAT 01/15/2024 1:41 AM CRYSTAL LAPPER COMPREHENSIVE METABOLIC PANEL STAT 01/15/2024 1:41 AM CRYSTAL LAPPER EKG 12-LEAD, TRACING ONLY STAT 01/14/2024 10:46 PM CRYSTAL LAPPER documented in this encounter Results * (ABNORMAL) CBC with platelets and differential (01/15/2024 1:41 AM CRYSTAL LAPPER) [facility] WBC Count 12.5(H) 4.0 - 11.0 10e3/uL 01/15/2024 1:48 AM [facility] RBC Count 4.62 3.80 - 5.20 10e6/uL 01/15/2024 1:48 AM [facility] Hemoglobin 12.5 11.7 - 15.7 g/dL 01/15/2024 1:48 AM [facility] Hematocrit 38.0 35.0 - 47.0 % 01/15/2024 1:48 AM [facility] MCV 82 78 - 100 fL 01/15/2024 1:48 AM [facility] MCH 27.1 26.5 - 33.0 pg 01/15/2024 1:48 AM [facility] MCHC 32.9 31.5 - 36.5 g/dL 01/15/2024 1:48 AM [facility] RDW 23.3(H) 10.0 - 15.0 % 01/15/2024 1:48 AM [facility] Platelet Count 414 150 - 450 10e3/uL 01/15/2024 1:48 AM [facility] % Neutrophils 67 % 01/15/2024 1:48 AM [facility] % Lymphocytes 26 % 01/15/2024 1:48 AM [facility] % Monocytes 6 % 01/15/2024 1:48 AM [facility] % Eosinophils 1 % 01/15/2024 1:48 AM [facility] % Basophils 0 % 01/15/2024 1:48 AM [facility] % Immature Granulocytes 0 % 01/15/2024 1:48 AM [facility] NRBCs per 100 WBC 0 <1 /100 024 1:48 AM [facility] Absolute Neutrophils 8.4(H) 1.6 - 8.3 10e3/uL 01/15/2024 1:48 AM [facility] Absolute Lymphocytes 3.3 0.8 - 5.3 10e3/uL 01/15/2024 1:48 AM [facility] Absolute Monocytes 0.8 0.0 - 1.3 10e3/uL 01/15/2024 1:48 AM [facility] Absolute Eosinophils 0.1 0.0 - 0.7 10e3/uL 01/15/2024 1:48 AM [facility] Absolute Basophils 0.0 0.0 - 0.2 10e3/uL 01/15/2024 1:48 AM [facility] Absolute Immature Granulocytes 0.0 <=0.4 10e3/uL 01/15/2024 1:48 AM [facility] Absolute NRBCs 0.0 10e3/uL 01/15/2024 1:48 AM [facility] Blood BLOOD SPECIMEN / Unknown Venipuncture / Unknown 01/15/2024 1:41 AM CRYSTAL LAPPER 01/15/2024 1:45 AM CRYSTAL LAPPER Sam Martini MD LAB - BLOOD ORDERAB LES LABORAT[facility] [address], [address] [place] [address], [facility] [phone] * Lactic acid whole blood (01/15/2024 1:41 AM CRYSTAL LAPPER) Lactic Acid 1.3 0.7 - 2.0 mmol/L 01/15/2024 1:47 AM [facility] Blood BLOOD SPECIMEN / Unknown Venipuncture / Unknown 01/15/2024 1:41 AM CRYSTAL LAPPER 01/15/2024 1:44 AM CRYSTAL LAPPER Sam Martini MD LAB - BLOOD ORDERAB LES [facility]AT[facility] [address], [address], [place] [address], [facility] [phone] * Lipase (01/15/2024 1:41 AM CRYSTAL LAPPER) Lipase 53 13 - 60 U/L 01/15/2024 2:12 AM [facility] Blood BLOOD SPECIMEN / Unknown Venipuncture / Unknown 01/15/2024 1:41 AM CRYSTAL LAPPER 01/15/2024 1:45 AM CRYSTAL LAPPER Sam Martini MD LAB - BLOOD ORDERAB LES LAB[facility]AT[facility] [address] [place] [address], [facility] [phone] * (ABNORMAL) Comprehensive metabolic panel (01/15/2024 1:41 AM CRYSTAL LAPPER) Sodium 134(L) 135 - 145 mmol/L 01/15/2024 2:12 AM [facility] Comment:Reference intervals for this test were updated on 08/24/2023 to more accurately reflect our healthy population. There may be differences in the flagging of prior results with similar values performed with this method. Interpretation of those prior results can be made in the context of the updated reference intervals. Potassium 4.1 3.4 - 5.3 mmol/L 01/15/2024 2:12 AM [facility] Carbon Dioxide (CO2) 23 22 - 29 mmol/L 01/15/2024 2:12 AM [facility] Anion Gap 13 7 - 15 mmol/L 01/15/2024 2:12 AM [facility] Urea Nitrogen 14.3 6.0 - 20.0 mg/dL 01/15/2024 2:12 AM [facility] Creatinine 0.71 0.51 - 0.95 mg/dL 01/15/2024 2:12 AM [facility] GFR Estimate >90 >60 mL/min/1. 73m2 01/15/2024 2:12 AM [facility] Calcium 9.4 8.6 - 10.0 mg/dL 01/15/2024 2:12 AM [facility] Chloride 98 98 - 107 mmol/L 01/15/2024 2:12 AM [facility] Glucose 91 70 - 99 mg/dL 01/15/2024 2:12 AM [facility] Alkaline Phosphatase 321(H) 40 - 150 U/L 01/15/2024 2:12 AM [facility] Comment:Reference intervals for this test were updated on 10/12/2023 to more accurately reflect our healthy population. There may be differences in the flagging of prior results with similar values performed with this method. Interpretation of those prior results can be made in the context of the updated reference intervals. AST 97(H) 0 - 45 U/L 01/15/2024 2:12 AM [facility] Comment:Reference intervals for this test were updated on 05/10/2023 to more accurately reflect our healthy population. There may be differences in the flagging of prior results with similar values performed with this method. Interpretation of those prior results can be made in the context of the updated reference intervals. ALT 149(H) 0 - 50 U/L 01/15/2024 2:12 AM [facility] Comment:Reference intervals for this test were updated on 05/10/2023 to more accurately reflect our healthy population. There may be differences in the flagging of prior results with similar values performed with this method. Interpretation of those prior results can be made in the context of the updated reference intervals. Protein Total 8.7(H) 6.4 - 8.3 g/dL 01/15/2024 2:12 AM [facility] Albumin 4.5 3.5 - 5.2 g/dL 01/15/2024 2:12 AM [facility] Bilirubin Total 0.2 <=1.2 mg/dL 01/15/2024 2:12 AM [facility] Blood BLOOD SPECIMEN / Unknown Venipuncture / Unknown 01/15/2024 1:41 AM CRYSTAL LAPPER 01/15/2024 1:45 AM CRYSTAL LAPPER Sam Martini MD LAB - BLOOD ORDERAB LES LABORATORY [facility] [address], [address] [place] [address], [facility] [phone] * EKG 12-lead, tracing only (01/14/2024 10:46 PM CRYSTAL LAPPER) Systolic Blood Pressure mmHg RADIOLOGY RESULTS Diastolic Blood Pressure mmHg RADIOLOGY RESULTS Ventricular Rate 127 BPM RAD IOLOGY RESULTS Atrial Rate 127 BPM RADIOLOG Y RESULTS VT Interval 158 ms RADIOLOG Y RESULTS QRS Duration 68 ms RADIOLO GY RESULTS QT 294 ms RADIOLOGY RESULTS QTc 427 ms RADIOLOGY RESULTS P [place] 57 degrees RADIOLOGY RESULTS R AXIS -36 degrees RADIOLOGY RESULTS T [place] 29 degrees RADIOLOGY RESULTS Interpretation ECG Sinus tachycardia Left axis deviation Possible Inferior infarct , age undetermined Anterior infarct (cited on or before 04-JAN-2024) Abnormal ECG When compared with ECG of 08-JAN-2024 00:16, QRS axis Shifted left Borderline criteria for Inferior infarct are now Present Confirmed by GENERATED REPORT, COMPUTER ([id number]), international editorial producer Opal Smith ([id number]) on 01/15/2024 2:39:29 PM RADIOLOGY RESULTS 01/14/2024 10:4 6 PM CRYSTAL LAPPER 01/15/2024 2:39 PM CRYSTAL LAPPER Santhosh Sánchez MD ECG ORDERABLES RADIOLOGY RESULTS documented in this encounter Visit Diagnoses Diagnosis Tachycardia Tachycardia, unspecified Opiate withdrawal (H) Drug withdrawal Elevated liver function tests Other abnormal blood chemistry documented in this encounter Administered Medications Inactive Administered Medications - up to 3 most recent administrations Medication Order MAR Action Action Date Dose Rate Site apixaban ANTICOAGULANT (ELIQUIS) tablet 5 mg 5 mg, Oral, ONCE, On Wed01/14/24 at 2345, For 1 dose, Indications: DVT-PE Treatment $Given 01/14/2024 11:55 PM CRYSTAL LAPPER 5 mg diphenhydrAMINE (BENADRYL) capsule 25 mg 25 mg, Oral, ONCE, On Wed01/14/24 at 2350, For 1 dose $Given 01/14/2024 11:55 PM CRYSTAL LAPPER 25 mg lactated ringers BOLUS 1,000 mL Intravenous, 1,000 mL, ONCE, at 1,000 mL/hr, Administer over 1 Hours, On Wed01/14/24 at 2340, For 1 dose $New Bag 01/15/2024 1:44 AM CRYSTAL LAPPER 1,000 mLs 1000 mL/hr lactated ringers BOLUS 1,000 mL Intravenous, 1,000 mL, ONCE, at 1,000 mL/hr, Administer over 1 Hours, On Wed01/15/24 at 0200, For 1 dose $New Bag 01/15/2024 2:40 AM CRYSTAL LAPPER 1,000 mLs 1000 mL/hr documented in this encounter Active and Recently Administered Medications Times are shown in CRYSTAL LAPPER. Scheduled Medication Order 01/13/2024 01/14/2024 01/15/2024 apixaban ANTICOAGULANT (ELIQUIS) tablet 5 mg (COMPLETED) 5 mg, Oral, ONCE, On Wed01/14/24 at 2345, For 1 dose, Indications: DVT-PE Treatment 2354 ($Given - Provider: Pattie Miranda RN) diphenhydrAMINE (BENADRYL) capsule 25 mg (COMPLETED) 25 mg, Oral, ONCE, On Wed01/14/24 at 2350, For 1 dose 2355 ($Given - Provider: Pattie Miranda RN) lactated ringers BOLUS 1,000 mL (COMPLETED) Intravenous, 1,000 mL, ONCE, at 1,000 mL/hr, Administer over 1 Hours, On Wed01/14/24 at 2340, For 1 dose 0144 ($New Bag - Provider: Pattie Miranda RN - Comment: No IV access)0241 (Stopped - Provider: Pattie Miranda RN) lactated ringers BOLUS 1,000 mL (COMPLETED) Intravenous, 1,000 mL, ONCE, at 1,000 mL/hr, Administer over 1 Hours, On 01/15/24 at 0200, For 1 dose 0240 ($New Bag - Provider: Pattie Miranda RN)0316 (Stopped - Provider: Pattie Miranda RN) 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 Assessment Noted Time PHQ-9 Depression Total Score: 3 05/27/20 23 5:00 PM CDT documented as of this encounter Care Teams Childhood Teacher Relationship Specialty [place] [address] [address] [place] [address] PCP - General Family Medicine 04/22/23 [place] [address] [address] [address] Assigned Pain Medication Provider 12/07/22 [place] [address] [address] [address] Assigned PCP 01/23/23 [place] [address] [place] [address] Assigned Musculoskeletal Provider 01/23/23 Gregorio Dalton PA-C [address] [address] Assigned Surgical Provider 05/22/23 Knigsley Garcia MD [address] [place] [address] Assigned Heart and Vascular Provider 08/07/23 [place] [address] [address] [address] Family Medicine 09/10/23 Master Shea PA-C [address] [place] [address] Physician Data Entry Operator Gastroenterology 09/10/23 Allyssa Justice MD [facility] [address] [facility] [place] [id number] Hematology & Oncology 12/10/23 Genaro Christian MD [address] [place], [place] [id number] Cardiovascular Disease 12/22/23 Master Shea PA-C [address] [place] [address] Assigned Gastroenterology Provider 12/23/23 documented as of this encounter
--- OUTSIDE RECORDS SUMMARY | 2024-03-25 18:18 | XMS_ITS | Encounter Summary ---
Author Name Unknown Organization [place] Address [facility] [place] [address] Care Team Providers Care Dinkey Operator Slag Name Role Phone Segundo Mcclelland MD Unavailable [phone] Segundo Mcclelland MD Unavailable [phone] Qamar Jackson MD Unavailable Segundo Mcclelland MD Primary Care Provider + Gregorio Dalton PA-C Unavailable [phone] Kingsley Garcia MD Unavailable + [phone] Segundo Mcclelland MD Unavailable [phone] Master Shea PA-C Unavailable Allyssa Justice MD Unavailable [phone] Genaro Christian MD Unavailable Master Shea PA-C Unavailable Encounter Details Date Type Department Care Team (Latest Contact Info) Description 01/14/2024 Travel Social History Tobacco Use Types Packs/Day [...] Description 05/09/2024 10:00 AM CDT Office Visit [facility] [address] [place] [address] [place] [address] [place], [place] [address] documented as of this encounter Visit Diagnoses Not on file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 Assessment Noted Time PHQ-9 Depression Total Score: 3 05/27/20 23 5:00 PM CDT documented as of this encounter Care Teams Dinkey Operator Slag Relationship Specialty [place] [address] [place] [id number] PCP - General Family Medicine 04/22/23 [place] [address] [place] [address] Assigned Pain Medication Provider 12/07/22 [place] [address] [place] [address] Assigned PCP 01/23/23 [place] [address] [place] [address] Assigned Musculoskeletal Provider 01/23/23 Gregorio Dalton PA-C [address] [place] [address] Assigned Surgical Provider 05/22/23 Kingsley Garcia MD [address] [place] [address] Assigned Heart and Vascular Provider 08/07/23 [place] [address] [place] [address] Family Medicine 09/10/23 Master Shea PA-C [address] [place] [address] Physician Pilot Plant Technician Gastroenterology 09/10/23 Allyssa Justice MD [facility] [address] [place] [address] Hematology & Oncology 12/10/23 Genaro Christian MD [address] [place] [address] Cardiovascular Disease 12/22/23 Master Shea PA-C [address] [place] [address] Assigned Gastroenterology Provider 12/23/23 documented as of this encounter
--- OUTSIDE RECORDS SUMMARY | 2024-03-25 18:18 | XMS_ITS | Encounter Summary ---
Author Name Unknown Organization [place] Address [address] [place] [address] Care Team Providers Care Stock Raiser Name Role Phone Segundo Mcclelland MD Unavailable + [phone] Segundo Mcclelland MD Unavailable [phone] Qamar Jackson MD Unavailable Segundo Mcclelland MD Primary Care Provider + Gregorio Dalton-Shirley Unavailable [phone] Kingsley Garcia MD Unavailable + [phone] Segundo Mcclelland MD Unavailable [phone] Master Shea PA-C Unavailable Allyssa Justice MD Unavailable [phone] Genaro Chritsian MD Unavailable + [phone] Master Shea-C Unavailable Sienna Guillermo DO Unavailable [phone] Allyssa Justice MD Unavailable [phone] Encounter Details Date Type Department Care Team (Late st Contact Info) Description 01/20/2024 [facility] [place] [address] [facility] [address] [place] [address] Sienna Guillermo DO [address] [facility] [address] [place] [address] Social History Tobacco Use Types Packs/Day Years [...] 10:00 AM CDT Office Visit [facility] [address] [place] [address] [place] [address] [facility] [place] [address] documented as of this encounter Visit Diagnoses Not on file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 Rule Out COVID-19 01/28/2024 01/28/2024 01/28/2024 10:22 PM PHYSICIAN ANESTHESIOLOGIST Rule Out COVID-19 02/17/2024 02/17/2024 02/17/2024 5:07 PM CDT Assessment Noted Time PHQ-9 Depression Total Score: 3 05/27/20 5:00 PM CDT documented as of this encounter Care Teams Stock Raiser Relationship Specialty Start [place] [address] [place] [address] PCP - General Family Medicine 04/22/23 [place] [address] [place] [address] Assigned Pain Medication Provider 12/07/22 [place] [address] [place] [address] Assigned PCP 01/23/23 [place] [address] [place] [address] Assigned Musculoskeletal Provider 01/23/23 Gregorio Dalton PA-C [address] [place] [address] Assigned Surgical Provider 05/22/23 Kingsley Garcia MD [address] [place] [place] [address] Assigned Heart and Vascular Provider 08/07/23 [place] [address] [place] [address] Family Medicine 09/10/23 Master Shea PA-C [address] [place] [address] Physician Associate Gastroenterology 09/10/23 Allyssa Justice MD [facility] [address] [place] [address] Hematology & Oncology 12/10/23 Genaro Christian MD [address] [place] [address] Cardiovascular Disease 12/22/23 Master Shea PA-C [address] [place] [address] Assigned Gastroenterology Provider 12/23/23 Sienna Guillermo DO [address] [place], [place] [address] Physician Cardiovascular Disease 01/18/24 Allyssa Justice MD [facility] [address] [place] [address] Assigned Cancer Care Provider 03/21/24 documented as of this encounter
--- OUTSIDE RECORDS SUMMARY | 2024-03-25 18:18 | XMS_ITS | Encounter Summary ---
Author Name Unknown Organization [place] Address [facility] [place] [address] Care Team Providers Care Wirer Maintenance Name Role Phone Segundo Mcclelland MD Unavailable [phone] Segundo Mcclelland MD Unavailable [phone] Qamar Jackson MD Unavailable Segundo Mcclelland MD Primary Care Provider + Gregorio Dalton PA-C Unavailable [phone] Kingsley Garcia MD Unavailable + [phone] Segundo Mcclelland MD Unavailable [phone] Master Shea PA-C Unavailable Allyssa Justice MD Unavailable [phone] Genaro Christian MD Unavailable [phone] Master Shea-Shirley Unavailable Sienna Guillermo DO Unavailable [phone] Encounter Details Date Type Department Care Team (Latest Contact Info) Description 01/28/2024 Travel Social History Tobacco Use Types Packs/Day [...] Description 05/09/2024 10:00 AM CDT Office Visit [facility] [address] [place] [address] [place] [address] [place] [address] documented as of this encounter Visit Diagnoses Not on file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 Rule Out COVID-19 01/28/2024 01/28/2024 01/28/2024 10:22 PM WIRE DROPPER Assessment Noted Time PHQ-9 Depression Total Score: 3 05/27/20 23 5:00 PM CDT documented as of this encounter Care Teams Wirer Maintenance Relationship Specialty Start [place] [address] [place] [address] PCP - General Family Medicine 04/22/23 [place] [address] [place] [address] Assigned Pain Medication Provider 12/07/22 [place] [address] [place] [address] Assigned PCP 01/23/23 [place] [address] [place] [address] Assigned Musculoskeletal Provider 01/23/23 Gregorio Dalton PA-C [address] [place] [address] Assigned Surgical Provider 05/22/23 Kingsley Garcia MD [address] [place] [address] Assigned Heart and Vascular Provider 08/07/23 [place] [address] [place] [address] Family Medicine 09/10/23 Master Shea PA-C [address] [place] [address] Physician Automobile Engine Assembler Gastroenterology 09/10/23 Allyssa Justice MD [facility] [address] [place] [address] Hematology & Oncology 12/10/23 Genaro Christian MD [address] [place] [address] Cardiovascular Disease 12/22/23 Master Shea PA-C [address] [place] [address] Assigned Gastroenterology Provider 12/23/23 Sienna Guillermo DO [address] [place] [address] Physician Cardiovascular Disease 01/18/24 documented as of this encounter
--- OUTSIDE RECORDS SUMMARY | 2024-03-25 18:18 | XMS_ITS | Encounter Summary ---
Author Name Unknown Organization [place] Address [address] [facility] [place] [address] Care Team Providers Care [facility] Name Role Phone Segundo Mcclelland MD Unavailable [phone] Segundo Mcclelland MD Unavailable Qamar Jackson MD Unavailable Segundo Mcclelland MD Primary Care Provider + Gregorio Dalton PA-C Unavailable Kingsley Garcia MD Unavailable [phone] Segundo Mcclelland MD Unavailable [phone] Master Shea PA-C Unavailable Allyssa Justice MD Unavailable [phone] Genaro Christian MD Unavailable [phone] Master Shea PA-C Unavailable Reason for Visit * Reason Comments Hospital F/U ER F/U Encounter Details Date Type Department Care Team (Late st Contact Info) Description 01/17/2024 2:30 PM CLINICAL NURSE SPECIALIST Virtual Visit [facility] [address] [place] [address] [place] [address] [place] [address] Acute embolism and thrombosis of deep veins of right upper extremity (H) (Primary Dx); Episodic opioid dependence (H); Mixed personality disorder (H); Morbid obesity (H) Social History Tobacco Use Types Packs/Day Years [...] Progress Notes * Segundo Mcclelland MD - 01/17/2024 2:30 PM CST Sandi is a 38 year old who is being evaluated via a billable video visit. How would you like to obtain your AVS? MyChart If the video visit is dropped, the invitation should be resent by: Text to cell phone: [phone] Will anyone else be joining your video visit? 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 This may be manageable with chronnic anticoag Plan: (F11.20) Episodic opioid dependence (H) Comment: Pt is currently detoxing from opiods, sx mild and she's managing. Advise OTC imodium prn Plan: (F60.89) Mixed personality disorder (H) Comment: follows with pysch Plan: (E66.01) Morbid obesity (H) Comment: weight is trending down due to eating issues Plan: RTC in 1m Segundo Mcclelland MD Subjective Sandi is a 38 year old, presenting for the following health issues: No chief complaint on file. [facility] ED[facility]UC Followup: Facility: [facility] Date of visit: 01/14/2024 Reason for visit: Tachycardia, opiate withdrawal, elevated LFTs Current Status: Not great, but as good as I'm going to feel Hospital Follow-up Visit: Hospital/Residential/IP Rehab Facility: [facility] Date of Admission: 01/09/2024 Date of Discharge: 01/10/2024 Reason(s) for Admission: Positive blood cultures Was your hospitalization related to COVID-19? No Problems taking medications regularly: none Medication changes since discharge: None Problems adhering to non-medication therapy: None Summary of hospitalization: Diagnostic Tests/Treatments reviewed. Follow up needed: none Other Healthcare Providers Involved in Patient???s Care: None Update since discharge: improved. Plan of care communicated with patient Was seen in ED two days ago for palpitations. Did seem better after IVF. Was supposed to be seen cards, but had to reschedule with all that's been happening with her, so this is now in January. Did have GI appt. Did have endoscopy, colonoscopy. Gastric emptying study delayed until her Hgb stabilizes. Recommended capsule endoscopy, which Sandi is delaying until her heart stuff is figured out. Has been getting IV iron, but with her peripheral access issues she can't get more IV iron. Is taking chewable vitamin with iron. Follows with out pt pysch. Last touch with them last week, has another one again soon. Is really lobbying to have PICC/port replaced for IVF Objective Vitals: No vitals were obtained today due to virtual visit. Physical Exam GENERAL: alert and no distress [...] Details Type of service: Video Visit Video Start Time: 1443 Video End Time: 1515 Originating Location (pt. Location): Home Distant Location (provider location): Off-site Platform used for Video Visit: [facility] Signed Electronically by: Segundo Mcclelland MD ICAL NURSE SPECIALIST * Brittney Reyes RN - 01/17/2024 2:30 PM CST 01/18/24 9:19 am Please see telephone encounter 01/18/24. Brittney Reyes RN ICAL NURSE SPECIALIST documented in this encounter Plan of Treatment Upcoming Encounters Date Type Department Care Team (Late st Contact Info) Description 05/09/2024 10:00 AM CDT Office Visit [facility] [address] [place] [address] [place] [address] [place] [address] documented as of this encounter Visit Diagnoses Diagnosis Acute embolism and thrombosis of deep veins of right upper extremity (H)- Primary Episodic opioid dependence (H) Opioid type dependence, episodic Mixed personality disorder (H) Other personality disorder Morbid obesity (H) Morbid obesity 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 Assessment Noted Time PHQ-9 Depression Total Score: 3 05/27/20 23 5:00 PM CDT documented as of this encounter Care Teams [facility] Relationship Specialty Start [place] [address] [place] [address] PCP - General Family Medicine 04/22/23 [place] [address] [place] [address] Assigned Pain Medication Provider 12/07/22 [place] [address] [place] [address] Assigned PCP 01/23/23 [place] [address] [place] [address] Assigned Musculoskeletal Provider 01/23/23 Gregorio Dalton PA-C [address] [place] [address] Assigned Surgical Provider 05/22/23 Kingsley Garcia MD [address] [place] [address] Assigned Heart and Vascular Provider 08/07/23 [place] [address] [place] [address] Family Medicine 09/10/23 Master Shea PA-C [address] [place] [address] Physician Sweeping Compound Blender Gastroenterology 09/10/23 Allyssa Justice MD [facility] [address] [facility] [place] [address] Hematology & Oncology 12/10/23 Genaro Christian MD [address] [place] [address] Cardiovascular Disease 12/22/23 Master Shea PA-C [address] [place] [address] Assigned Gastroenterology Provider 12/23/23 documented as of this encounter
--- OUTSIDE RECORDS SUMMARY | 2024-03-25 18:18 | XMS_ITS | Encounter Summary ---
Author Name Unknown Organization [facility] Address [address] [place] [address] Care Team Providers Care Sdet Name Role Phone Segundo Mcclelland MD Unavailable [phone] Segundo Mcclelland MD Unavailable [phone] Qamar Jackson MD Unavailable Segundo Mcclelland MD Primary Care Provider + Gregorio Dalton PA-C Unavailable [phone] Kingsley Garcia MD Unavailable + [phone] Segundo Mcclelland MD Unavailable [phone] Master Shea PA-C Unavailable Allyssa Justice MD Unavailable [phone] Genaro Christian MD Unavailable Master Shea-Shirley Unavailable Sienna Guillermo DO Unavailable Reason for Visit * Reason Comments Dehydration Loss of Consciousness Encounter Details Date Type Department Care Team (Late st Contact Info) Description 01/18/2024 4:03 PM POINT OF SALE ASSOCIATE - 01/18/2024 6:53 PM POINT OF SALE ASSOCIATE [facility] Emergency Dept [address] [place] [address] Josh Castanon MD [facility] [address] [place] [address] Syncope and collapse; Vomiting, unspecified vomiting type, unspecified whether nausea present Discharge Disposition: Home or Self Care Social [...] Sign Reading Time Taken Comments Blood Pressure 105/88 01/18/2024 5:37 PM POINT OF SALE ASSOCIATE Pulse 103 01/18/2024 6:07 PM POINT OF SALE ASSOCIATE Temperature 37.1 ??C (98.7 ??F) 01/18/2024 3:46 PM CS T Respiratory Rate 15 01/18/2024 6:07 PM POINT OF SALE ASSOCIATE Oxygen Saturation 98% 01/18/2024 6:07 PM POINT OF SALE ASSOCIATE Inhaled Oxygen Concentration - - Weight - - Height - - Body Mass Index - - documented in this encounter Discharge Instructions * Discharge Instructions* Josh Castanon MD - 01/18/2024 6:11 PM POINT OF SALE ASSOCIATE We have attempted multiple tries at peripheral IV access and have been unsuccessful. Your vital signs are normal and your lab work is normal. As we have discussed this physician is not willing to centrally access your veins for normal lab work and normal blood pressure in the setting. We have discussed your care with interventional radiology. They will follow-up with you tomorrow. If you have persistent vomiting please follow-up with your primary care doctor to discuss medication options as IV Ativan is not a great option in the setting where you are using this medication on a regular basis and you have not offered many medications that can be given to help you with nausea and vomiting in the emergency room. We are sorry that we could not get an IV with you in hope you feel better. T OF SALE ASSOCIATE * Attachments The following attachments cannot be sent through Care Everywhere. * POTS (Postural Orthostatic Tachycardia Syndrome): General Info (Malaysian) * Nausea and Vomiting (Malaysian) documented in this encounter Medications at Time [...] anxiety naloxone (NARCAN) 4 MG/0.1ML nasal spray Sturtevant 4 mg into one nostril alternating nostrils [...] as of this encounter ED Notes * Nimo Antonio RN - 01/18/2024 6:34 PM CST No IV. Attempted by Bret Donnelly Squlili by Ultrasound X [address] without success[address] Attempt[address] Dr. Castanon X 3 without success. Patient declined IM Benadryl. Pt declined COVID, RSV, Influenza swab due to nausea which we are unable to treat due to pt allergies, and declination. No emesis in the ER. Several times dry heaves. Making tears. Mucous membranes are moist. T OF SALE ASSOCIATE * Carin Marques RN - 01/18/2024 4:03 PM CST Bed: FT05 Expected date: Expected time: Means of arrival: Comments: LM. T OF SALE ASSOCIATE * Wade Bruce RN - 01/18/2024 3:46 PM CST Arrives from the community. States she has POTS and gastroparesis. States that her children have flu. And has concerns that she is dehydrated and requires IV fluids. States she has been passing out, when she stands up. Also reports dizzy when she changes positions. States took a tylenol supp prior to arrival, aprox 2 hours prior to arrival. T OF SALE ASSOCIATE * Josh Castanon MD - 01/18/2024 3:44 PM CST History Chief Complaint: Dehydration and Loss of Consciousness HPI Sandi Lopez is a 38 year old female with history of POTS, PE on Eliquis, and gastroparesis who presents for evaluation of dehydration and loss of consciousness. Recently, the patient describes yeast growth following port removal. She also states that she stopped taking her Dilaudid 3 days ago. The patient was sent in after being told by her clinic to come in, complaining of lightheadedness when standing and dehydration. She also notes that she has had syncopal episodes while standing stating that she feels a vicente to her head and blackness. Sandi describes only being able to [id number] mL of fluid food at a time. Of note, the patient states that her kids have influenza at home. Independent Historian: None - Patient Only Review of External Notes: Prior ED visits, including care plan and visit to [facility] on 01/14 Medications: Eliquis Benadryl Epinephrine Gabapentin Dilaudid Ativan Narcan Protonix Pyridium Ambien Past Medical History: Allergic rhinitis Anemia Atrial flutter Borderline personality disorder Depressive disorder Drug-seeking behavior Dysthymic disorder Eating disorder Gastroesophageal reflux disease Gastroparesis Hypertension Asthma Opioid dependence POTS Nonepileptic seizure PTSD Pulmonary embolism Munchausen syndrome Narcotic abuse Upper GI bleed Chronic pain Sepsis Morbid obesity Insomnia Past Surgical History: Adenoidectomy Ankle surgery Appendectomy Left knee arthroscopy Back surgery Cervical cautery Cerclage cervical (x2) Cholecystectomy Colonoscopy Colposcopy Pelvic laparoscopy Cholangiopancreatography EGD (x6) Port placement Port removal PICC placement Hysterectomy Right heel debridement Laryngoscopy Oophorectomy Tonsillectomy & adenoidectomy Transesophageal echocardiogram Tubal ligation Physical Exam Patient Vitals for the past 24 hrs: BP Temp Temp src Pulse Resp SpO2 01/18/24 1720 121/79 -- -- 109 21 98 % 01/18/24 1546 (!) 152/102 98.7 ??F (37.1 ??C) Temporal (!) 128 20 98 % Physical Exam Vitals reviewed. Constitutional: Appearance: She is obese. HENT: Head: Normocephalic. Nose: Nose normal. Eyes: Conjunctiva/sclera: Conjunctivae normal. Cardiovascular: Rate and Rhythm: Normal rate and regular rhythm. Pulmonary: Effort: Pulmonary effort is normal. Abdominal: General: Abdomen is flat. Skin: General: Skin is warm. Capillary Refill: Capillary refill takes less than 2 seconds. Neurological: General: No focal deficit present. Mental Status: She is alert and oriented to person, place, and time. Psychiatric: Comments: Anxious Emergency Department Course ECG ECG results from 01/18/24 EKG 12-lead, tracing only Value Systolic Blood Pressure Diastolic Blood Pressure Ventricular Rate 109 Atrial Rate 109 ID Interval 148 QRS Duration 70 QT 320 QTc 430 P Houston 23 R AXIS 5 T Houston 19 Interpretation ECG Sinus tachycardia Inferior infarct, age undetermined Abnormal ECG *Note: Due to a large number of results and/or encounters for the requested time period, some results have not been displayed. A complete set of results can be found in Results Review. Laboratory: Labs Ordered and Resulted from Time of ED Arrival to Time of ED Departure BASIC METABOLIC PANEL - Abnormal Result Value Sodium 137 Potassium 4.8 Chloride 104 Carbon Dioxide (CO2) 20 (*) Anion Gap 13 Urea Nitrogen 12.4 Creatinine 0.57 GFR Estimate >90 Calcium 9.0 Glucose 112 (*) CBC WITH PLATELETS AND DIFFERENTIAL - Abnormal WBC Count 11.3 (*) RBC Count 4.58 Hemoglobin 12.7 Hematocrit 38.8 MCV 85 MCH 27.7 MCHC 32.7 RDW 23.4 (*) Platelet Count 448 % Neutrophils 66 % Lymphocytes 28 % Monocytes 5 % Eosinophils 1 % Basophils 0 % Immature Granulocytes 0 NRBCs per 100 WBC 0 Absolute Neutrophils 7.4 Absolute Lymphocytes 3.1 Absolute Monocytes 0.6 Absolute Eosinophils 0.1 Absolute Basophils 0.0 Absolute Immature Granulocytes 0.0 Absolute NRBCs 0.0 INFLUENZA A/B, RSV, & SARS-COV2 PCR Emergency Department Course & Assessments: Interventions: Medications sodium chloride 0.9% BOLUS 1,000 mL (has no administration in time range) diphenhydrAMINE (BENADRYL) injection 50 mg (has no administration in time range) Independent Interpretation (X-rays, CTs, rhythm strip): Assessments/Consultations/Discussion of Management or Tests: ED Course as of 01/18/24 1830 e Jan 18, 2024 161 I saw this patient for an initial evaluation. [address] Hughes from IR about the patient's presentation, findings, and plan of care. 174 I rechecked and updated the patient. 1808 I spoke with Gina RABAGO regarding the patient's presentation, findings, and plan of care Social Determinants of Health affecting care: None Disposition: The patient was discharged to home. Impression & Plan Medical Decision Making: Patient is a 38-year-old female well-known and restricted this emergency room for medical care. Hasa history and a care plan consistent with likely chronic benzodiazepine use and chronic narcotic use. Patient arrives again with complaints of vomiting and passing out. Initially was tachycardic but and monitoring heart rate improved to 96 with lying still. Patient and on arrival is retching into abag is requesting IV Benadryl and IV Ativan to help her with her nausea and vomiting. Ultimately anattempt for IV access was performed by the nurse the IV care team is saw the patient at the bedsideas well as I attempted to place an IV with her using ultrasound guidance and was unsuccessful. Patient on multiple occasions was requesting me to place an peripheral IV in her internal jugular. Her lab work is unremarkable. Her vital signs are normal. Patient has a history of malingering and multiple visits to the hospital with a care plan. I suspect patient is here to get IV Benadryl and IV Ativan and do not feel comfortable accessing a central vein in her neck or in her groin to offer IV medications. I did call and speak to the interventional list to see if a PICC line could be placed patient is not allowed to have PICC stat come and see her because she states that they caused a blood clot in her arm. PICC stat is not an option interventional radiology states there is nobody to call in to get him to come in to put a PICC line tonight options are to transfer her to [facility]. No clear emergent condition was identified to necessitate this care was discussed on multiple occasions with the patient. Patient was offered IM Benadryl I do not feel comfortable to add more benzodiazepines or more narcotics to her chronic medical conditions and feel patient needs a reestablish care plan to decide how to manage her chronic medical conditions with poor IV access. Ultimately patient was offered IV medications there is nothing that she can identify to give her for nausea and vomiting other than Ativan or Benadryl this makes me very uncomfortable due to her chronic narcotic use in the mix of narcotics and benzodiazepines. Ultimately IR offered to follow-up with her tomorrow to reassess for PICC line access. No emergent need for transfer was identified. Patient while in the emergency room stated she fell from the bed and was found with the mattress on the floor no clear signs of head injury or concerns for narcotics and wonder about malingering. Regardless patient on multiple occasions refused any other interventions other than IV medications IV access was on available therefore was discharged from the emergency department. Diagnosis: ICD-10-CM 1. Syncope and collapse R55 2. Vomiting, unspecified vomiting type, unspecified whether nausea present R11.10 Scribe Disclosure: IRico, am serving as a scribe operational trainer at 4:08 PM on 01/18/2024 IDemarco, am serving as a scribe at 4:08 PM on 01/18/2024 to document services personally performed by Josh Castanon MD based on my observations and the provider's statements to me. Josh Castanon MD Goodman, Brian Samuel, MD 01/18/241936 T OF SALE ASSOCIATE documented in this encounter Plan of Treatment Upcoming Encounters Date Type Department Care Team (Late st Contact Info) Description 05/09/2024 10:00 AM CDT [facility] [address] [address] [place] [phone] [place] [address] [facility] [place] [address] documented as of this encounter Procedures Procedure Name Priority Date/Time Associated Diagnosis Comments EXTRA TUBE STAT 01/18/2024 4:49 PM POINT OF SALE ASSOCIATE EXTRA RED TOP TUBE STAT 01/18/2024 4: 49 PM POINT OF SALE ASSOCIATE CBC WITH PLATELETS AND DIFFERENTIAL STAT 01/18/2024 4:47 PM POINT OF SALE ASSOCIATE CBC WITH PLATELETS & DIFFERENTIAL STAT 01/18/2024 4:47 PM POINT OF SALE ASSOCIATE BASIC METABOLIC PANEL STAT 01/18/2024 4:47 PM POINT OF SALE ASSOCIATE EKG 12-LEAD, TRACING ONLY STAT 01/18/2024 4:26 PM POINT OF SALE ASSOCIATE documented in this encounter Results * Extra Red Top Tube (01/18/2024 4:49 PM POINT OF SALE ASSOCIATE) [facility] Hold Specimen [facility] 01/18/2024 6:05 PM POINT OF SALE ASSOCIATE LABORATORY Blood VENOUS LINE / Unknown Venipuncture / Unknown 01/18/2024 4:49 PM POINT OF SALE ASSOCIATE 01/18/2024 4:58 PM POINT OF SALE ASSOCIATE Josh Castanon MD LAB - BLOOD [facility] Acute Care Lab [address] Lab (1st floor, no room number) [place] [address], [facility] [phone] * (ABNORMAL) CBC with platelets and differential (01/18/2024 4:47 PM POINT OF SALE ASSOCIATE) WBC Count 11.3(H) 4.0 - 11.0 10e3/uL 01/18/2024 5:02 PM POINT OF SALE ASSOCIATE [facility]AT[facility] RBC Count 4.58 3.80 - 5.20 10e6/uL 01/18/2024 5:02 PM POINT OF SALE ASSOCIATE [facility] Hemoglobin 12.7 11.7 - 15.7 g/dL 01/18/2024 5:02 PM POINT OF SALE ASSOCIATE [facility] Hematocrit 38.8 35.0 - 47.0 % 01/18/2024 5:02 PM POINT OF SALE ASSOCIATE [facility] MCV 85 78 - 100 fL 01/18/2024 5:02 PM POINT OF SALE ASSOCIATE [facility] MCH 27.7 26.5 - 33.0 pg 01/18/2024 5:02 PM POINT OF SALE ASSOCIATE [facility] MCHC 32.7 31.5 - 36.5 g/dL 01/18/2024 5:02 PM POINT OF SALE ASSOCIATE [facility] RDW 23.4(H) 10.0 - 15.0 % 01/18/2024 5:02 PM POINT OF SALE ASSOCIATE [facility] Platelet Count 448 150 - 450 10e3/uL 01/18/2024 5:02 PM POINT OF SALE ASSOCIATE [facility] % Neutrophils 66 % 01/18/2024 5:02 PM POINT OF SALE ASSOCIATE [facility] % Lymphocytes 28 % 01/18/2024 5:02 PM POINT OF SALE ASSOCIATE [facility] % Monocytes 5 % 01/18/2024 5:02 PM POINT OF SALE ASSOCIATE [facility] % Eosinophils 1 % 01/18/2024 5:02 PM POINT OF SALE ASSOCIATE [facility] % Basophils 0 % 01/18/2024 5:02 PM POINT OF SALE ASSOCIATE [facility] % Immature Granulocytes 0 % 01/18/2024 5:02 PM POINT OF SALE ASSOCIATE [facility] NRBCs per 100 WBC 0 <1 /100 024 5:02 PM POINT OF SALE ASSOCIATE [facility] Absolute Neutrophils 7.4 1.6 - 8.3 10e3/uL 01/18/2024 5:02 PM POINT OF SALE ASSOCIATE [facility] Absolute Lymphocytes 3.1 0.8 - 5.3 10e3/uL 01/18/2024 5:02 PM POINT OF SALE ASSOCIATE [facility] Absolute Monocytes 0.6 0.0 - 1.3 10e3/uL 01/18/2024 5:02 PM POINT OF SALE ASSOCIATE [facility] Absolute Eosinophils 0.1 0.0 - 0.7 10e3/uL 01/18/2024 5:02 PM POINT OF SALE ASSOCIATE [facility] Absolute Basophils 0.0 0.0 - 0.2 10e3/uL 01/18/2024 5:02 PM POINT OF SALE ASSOCIATE LABORATORY Absolute Immature Granulocytes 0.0 <=0.4 10e3/uL 01/18/2024 5:02 PM POINT OF SALE ASSOCIATE LABORATORY Absolute NRBCs 0.0 10e3/uL 01/18/2024 5:02 PM POINT OF SALE ASSOCIATE LABORATORY Blood VENOUS LINE / Unknown Venipuncture / Unknown 01/18/2024 4:47 PM POINT OF SALE ASSOCIATE 01/18/2024 4:58 PM POINT OF SALE ASSOCIATE Josh Castanon MD LAB - BLOOD [facility] Acute Care Lab [address] [facility] Lab (1st floor, no room number) [place] [address], [facility] [phone] * (ABNORMAL) Basic metabolic panel (01/18/2024 4:47 PM POINT OF SALE ASSOCIATE) [facility] Sodium 137 135 - 145 mmol/L 01/18/2024 5:27 PM [facility] LABORATORY Comment:Reference intervals for this test were updated on 08/24/2023 to more accurately reflect our healthy population. There may be differences in the flagging of prior results with similar values performed with this method. Interpretation of those prior results can be made in the context of the updated reference intervals. Potassium 4.8 3.4 - 5.3 mmol/L 01/18/2024 5:27 PM [facility] Comment:Specimen slightly he molyzed. The reported potassium value may be falsely elevated. Analysis of a non-hemolyzed specimen (i.e. re-draw) may result in a lower potassium value. Chloride 104 98 - 107 mmol/L 01/18/2024 5:27 PM [facility] Carbon Dioxide (CO2) 20(L) 22 - 29 mmol/L 01/18/2024 5:27 PM [facility] Anion Gap 13 7 - 15 mmol/L 01/18/2024 5:27 PM [facility] Urea Nitrogen 12.4 6.0 - 20.0 mg/dL 01/18/2024 5:27 PM [facility] Creatinine 0.57 0.51 - 0.95 mg/dL 01/18/2024 5:27 PM POINT OF SALE ASSOCIATE [facility] GFR Estimate >90 >60 mL/min/1. 73m2 01/18/2024 5:27 PM POINT OF SALE ASSOCIATE LABORATORY Calcium 9.0 8.6 - 10.0 mg/dL 01/18/2024 5:27 PM POINT OF SALE ASSOCIATE LABORATORY Glucose 112(H) 70 - 99 mg/dL 01/18/2024 5:27 PM POINT OF SALE ASSOCIATE LABORATORY Blood VENOUS LINE / Unknown Venipuncture / Unknown 01/18/2024 4:47 PM POINT OF SALE ASSOCIATE 01/18/2024 4:58 PM POINT OF SALE ASSOCIATE Josh Castanon MD LAB - BLOOD [facility] Acute Care Lab [address] Lab (1st floor, no room number) [place] [address], [facility] [phone] * EKG 12-lead, tracing only (01/18/2024 4:26 PM POINT OF SALE ASSOCIATE) Systolic Blood Pressure mmHg RADIOLOGY RESULTS Diastolic Blood Pressure mmHg RADIOLOGY RESULTS Ventricular Rate 109 BPM RAD IOLOGY RESULTS Atrial Rate 109 BPM RADIOLOG Y RESULTS ID Interval 148 ms RADIOLOG Y RESULTS QRS Duration 70 ms RADIOLO GY RESULTS QT 320 ms RADIOLOGY RESULTS QTc 430 ms RADIOLOGY RESULTS P Houston 23 degrees RADIOLOGY RESULTS R AXIS 5 degrees RADIOLOGY RESULTS T Houston 19 degrees RADIOLOGY RESULTS Interpretation ECG Sinus tachycardia Inferior infarct (cited on or before 08-JAN-2024) Abnormal ECG When compared with ECG of 14-JAN-2024 22:46, Criteria for Anterior infarct are no longer Present Unconfirmed report - interpretation of this ECG is computer generated - see medical record for final interpretation Confirmed by - EMERGENCY ROOM, PHYSICIAN ([id number]), assistant editor SANDI RICKETTS ([id number]) on 01/19/2024 6:47:27 AM RADIOLOGY RESULTS 01/18/2024 4:26 PM POINT OF SALE ASSOCIATE 01/19/2024 6:47 AM POINT OF SALE ASSOCIATE Josh Castanon MD ECG ORDERABLES RADIOLOGY RESULTS documented in this encounter Visit Diagnoses Diagnosis Syncope and collapse Vomiting, unspecified vomiting type, unspecified whether nausea present documented in this encounter Active and Recently Administered Medications Times are shown in POINT OF SALE ASSOCIATE. Scheduled Medication Order 01/16/2024 01/17/2024 01/18/2024 sodium chloride 0.9% BOLUS 1,000 mL Intravenous, 1,000 mL, ONCE, at 1,000 mL/hr, Administer over 1 Hours, On Wed01/18/24 at 1615, For 1 dose 1615 (Canceled Entry - Provider: Orders Generic Provider - Comment: Automatically canceled at discontinue of medication order) 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 Rule Out COVID-19 01/18/2024 01/18/2024 01/18/2024 8:53 PM POINT OF SALE ASSOCIATE Assessment Noted Time PHQ-9 Depression Total Score: 3 05/27/20 5:00 PM CDT documented as of this encounter Care Teams Sdet Relationship Specialty [place] [address] [address] [address] PCP - General Family Medicine 04/22/23 [place] [address] [address] [address] Assigned Pain Medication Provider 12/07/22 [place] [address] [address] [address] Assigned PCP 01/23/23 [place] [address] [address] [address] Assigned Musculoskeletal Provider 01/23/23 Gregorio Dalton PA-C [address] [address] Assigned Surgical Provider 05/22/23 Kingsley Garcia MD [address] [place] [address] Assigned Heart and Vascular Provider 08/07/23 [place] [address] [place] [address] Family Medicine 09/10/23 Master Shea PA-C [address] [place] [address] Physician Sprue Knocker Gastroenterology 09/10/23 Allyssa Justice MD [facility] [address] [place] [address] Hematology & Oncology 12/10/23 Genaro Chritsian MD [address] [place] [address] Cardiovascular Disease 12/22/23 Master Shea PA-C [address] [place] [address] Assigned Gastroenterology Provider 12/23/23 Sienna Guillermo DO [address] [place] [address] Physician Cardiovascular Disease 01/18/24 documented as of this encounter
--- OUTSIDE RECORDS SUMMARY | 2024-03-25 18:18 | XMS_ITS | Encounter Summary ---
Author Name Unknown Organization [place] Address [facility] [place] [address] Care Team Providers Care Collision Center Manager Name Role Phone Segundo Mcclelland MD Unavailable [phone] Segundo Mcclelland MD Unavailable [phone] Qamar [place] MD Unavailable Segundo Mcclelland MD Primary Care Provider + Gregorio Dalton PA-C Unavailable +[phone] Kingsley Garcia MD Unavailable + [phone] Segundo Mcclelland MD Unavailable +[phone] Master Shea PA-C Unavailable Allyssa Justice MD Unavailable [phone] Genaro Christian MD Unavailable [phone] Master Shea PA-C Unavailable Sienna Guillermo DO Unavailable +[phone] Reason for Referral * Therapeutic Imaging/IR (Routine) - Authorized Specialty Diagnoses / Procedures Referred By Contzbigniew t Referred To Contact Radiology. Diagnoses Poor intravenous access Procedures IR Chest Port Placement > 5 Yrs of Age [place] [address] [place] [address] [address] [place] [address] Referral ID Status Reason Start Date Expiration Date V isits Requested Visits Authorized [id number] Authorized 01/27/2024 01/26/2025 2 2 LYST MANUFACTURING OPERATOR Reason for Visit * Reason Comments Other Entered automaticall y based [facility] Encounter Details Date Type Department Care Team (Late st Contact Info) Description 01/19/2024 3:50 PM CATALYST MANUFACTURING OPERATOR E-Visit [facility] [address] [place] [address] [place] [address] [place] [address] Other (Entered automatically based on ngozi... Social [...] Telephone Encounter - Olga Garcia RN - 01/26/2024 9:02 AM CST Called IR at [phone] and spoke with Macrina- final installer inspector. Pt will need a referral. Referral can be faxed to [phone]. Include which location pt wants to go. Called pt. Pt would like to go to [facility]. Pended and routing to PCP to order IR. Please edit as needed. Olga Garcia RN LYST MANUFACTURING OPERATOR * Telephone Encounter - Segundo Mcclelland MD - 01/26/2024 8:32 AM CATALYST MANUFACTURING OPERATOR Who would be place a port-a-cath? IR? Surgery? Segundo Mcclelland MD LYST MANUFACTURING OPERATOR * Telephone Encounter - Segundo Mcclelland MD - 01/20/2024 10:42 AM CATALYST MANUFACTURING OPERATOR Provider E-Visit time total (minutes):30x LYST MANUFACTURING OPERATOR documented in this encounter Plan of Treatment Upcoming Encounters Date Type Department Care Team (Late st Contact Info) Description 05/09/2024 10:00 AM CDT Office Visit [facility] [address] [place] [address] [place] [address] [place] [address] documented as of this encounter Results * IR Chest Port Placement > 5 Yrs of Age (02/04/2024 9:18 AM CATALYST MANUFACTURING OPERATOR) Anatomical Region Laterality Modality Chest Radio Fluoroscop y, Radio Fluoroscopy Impressions 02/04/2024 4:51 PM CATALYST MANUFACTURING OPERATOR IMPRESSION: Successful placement of right internal jugular 6 [place] SmartPort and catheter. The port is ready for immediate use. BRADEN GARCIA MD Narrative 02/04/2024 4:51 PM CATALYST MANUFACTURING OPERATOR PORT PLACEMENT ?? 02/04/2024 9:18 AM INDICATION: [...] Successful placement of right internal jugular 6 [place] SmartPort and catheter. The port is ready [...] documented as of this encounter Care Teams Collision Center Manager Relationship Specialty Start [place] [address] [address] [address] PCP - General Family Medicine 04/22/23 [place] [address] [address] [address] Assigned Pain Medication Provider 12/07/22 [place] [address] [address] [address] Assigned PCP 01/23/23 [place] [address] [address] [place] [address] Assigned Musculoskeletal Provider 01/23/23 Gregorio Dalton PA-C [address] [place] [address] Assigned Surgical Provider 05/22/23 Kingsley Garcia MD [address] [place] [address] Assigned Heart and Vascular Provider 08/07/23 [place] [address] [address] [address] Family Medicine 09/10/23 Master Shea PA-C [address] [place] [address] Physician Cvir Tech Gastroenterology 09/10/23 Allyssa [place] MD [facility] [address] [place] [address] Hematology & Oncology 12/10/23 Genaro Christian MD 6 [place] [address] Cardiovascular Disease 12/22/23 Master Shea PA-C [address] [place] [address] Assigned Gastroenterology Provider 12/23/23 Sienna Guillermo DO [address] [place] [address] Physician Cardiovascular Disease 01/18/24 documented as of this encounter
--- OUTSIDE RECORDS SUMMARY | 2024-03-25 18:18 | XMS_ITS | Encounter Summary ---
Author Name Unknown Organization [place] Address [facility] [place] [address] Care Team Providers Care Salesperson Household Appliances Name Role Phone Segundo Mcclelland MD Unavailable [phone] Segundo Mcclelland MD Unavailable [phone] Qamar [place] MD Unavailable Segundo Mcclelland MD Primary Care Provider + Gregorio Dalton PA-C Unavailable [phone] Kingsley Garcia MD Unavailable + [phone] Segundo Mcclelland MD Unavailable +[phone] Master Shea PA-C Unavailable Allyssa [place] MD Unavailable [phone] Genaro Christian MD Unavailable [phone] Master Shea-Shirley Unavailable Sienna Guillermo DO Unavailable [phone] Encounter Details Date Type Department Care Team (Latest Contact Info) Description 01/18/2024 Travel Social History Tobacco Use Types Packs/Day [...] Description 05/09/2024 10:00 AM CDT Office Visit [facility] [address] [place] [address] [place] [address] [place] [address] documented as of this encounter Visit Diagnoses Not on file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 Rule Out COVID-19 01/18/2024 01/18/2024 01/18/2024 8:53 PM HEAD OF SCIENCE Assessment Noted Time PHQ-9 Depression Total Score: 3 05/27/20 23 5:00 PM CDT documented as of this encounter Care Teams Salesperson Household Appliances Relationship Specialty Start [place] [address] [place] [address] PCP - General Family Medicine 04/22/23 [place] [address] [place] [address] Assigned Pain Medication Provider 12/07/22 [place] [address] [place] [address] Assigned PCP 01/23/23 [place] [address] [place] [address] Assigned Musculoskeletal Provider 01/23/23 Gregorio Dalton PA-C [address] [place] [address] Assigned Surgical Provider 05/22/23 Kingsley Garcia MD [address] [place] [address] Assigned Heart and Vascular Provider 08/07/23 [place] [address] [place] [address] Family Medicine 09/10/23 Master Shea PA-C [address] [place] [address] Physician Ward Attendant Gastroenterology 09/10/23 Allyssa Justice MD [facility] [address] [place] [address] Hematology & Oncology 12/10/23 Genaro Christian MD [address] [place] [address] Cardiovascular Disease 12/22/23 Master Shea PA-C [address] [place] [address] Assigned Gastroenterology Provider 12/23/23 Sienna Guillermo DO [address] [place] [address] Physician Cardiovascular Disease 01/18/24 documented as of this encounter
--- OUTSIDE RECORDS SUMMARY | 2024-03-25 18:19 | XMS_ITS | Encounter Summary ---
Author Name Unknown Organization [place] Address Count includes the [facility] [place] [address] Care Team Providers Care Rest Room Matron Name Role Phone Segundo Mcclelland MD Unavailable [phone] Segundo Mcclelland MD Unavailable [phone] Qamar [place] MD Unavailable Segundo Mcclelland MD Primary Care Provider + Grgeorio Dalton PA-C Unavailable [phone] Kingsley Garcia MD Unavailable + [phone] Segundo Mcclelland MD Unavailable +[phone] Master Shea PA-C Unavailable Allyssa Justice MD Unavailable [phone] Genaro Christian MD Unavailable [phone] Master Shea PA-C Unavailable Encounter Details Date Type Department Care Team (Latest Contact Info) Description 01/08/2024 Travel Social History Tobacco Use Types Packs/Day [...] Description 05/09/2024 10:00 AM CDT Office Visit [facility] [address] [facility] [place] [address] [place] [address] [place] [address] documented as of this encounter Visit Diagnoses Not on file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 Assessment Noted Time PHQ-9 Depression Total Score: 3 05/27/20 23 5:00 PM CDT documented as of this encounter Care Teams Rest Room Matron Relationship Specialty Start [place] [address] [place] [id number] PCP - General Family Medicine 04/22/23 [place] [address] [place] [address] Assigned Pain Medication Provider 12/07/22 [place] [address] [place] [address] Assigned PCP 01/23/23 [place] [address] [place] [address] Assigned Musculoskeletal Provider 01/23/23 Gregorio Dalton PA-C [address] [place] [address] Assigned Surgical Provider 05/22/23 Kingsley Garcia MD [address] [place] [address] Assigned Heart and Vascular Provider 08/07/23 [place] [address] [place] [address] Family Medicine 09/10/23 Master Shea PA-C [address] [place] [address] Physician Fire Fighter Gastroenterology 09/10/23 Allyssa Justice MD [facility] [address] [place] [address] Hematology & Oncology 12/10/23 Genaro Christian MD 6 [place] [address] Cardiovascular Disease 12/22/23 Master Shea PA-C [address] [place] [address] Assigned Gastroenterology Provider 12/23/23 documented as of this encounter
--- OUTSIDE RECORDS SUMMARY | 2024-03-25 18:19 | XMS_ITS | Encounter Summary ---
Author Name Unknown Organization [place] Address [address] [place] [address] Care Team Providers Care Erp Manager Name Role Phone Segundo cMclelland MD Unavailable [phone] Segundo Mcclelland MD Unavailable [phone] Qamar [place] MD Unavailable Segundo Mcclelland MD Primary Care Provider + Gregorio Dalton-Shirley Unavailable +[phone] Kingsley Garcia MD Unavailable + [phone] Segundo Mcclelland MD Unavailable [phone] Master Shea PA-C Unavailable Allyssa Justice MD Unavailable [phone] Genaro Christian MD Unavailable + [phone] Master Shea-C Unavailable Sienna Guillermo DO Unavailable [phone] Allyssa Justice MD Unavailable [phone] Encounter Details Date Type Department Care Team (Late st Contact Info) Description 01/11/2024 Result Follow Up [facility] - General Medicine & Pediatrics [facility] [place] [address] Rafael Watson MD [address] [address] Social History Tobacco Use Types Packs/Day Years [...] as of this encounter Progress Notes * Rafael Watson MD - 01/11/2024 2:50 PM CST I was called by lab today regarding second organism growing on blood culture from 01/08/24. Now growing Lactobacillus species and Actinomyces odontolyticus. Chart reviewed. Case discussed with ID. Both bacteria suspected to be skin contaminants. Clinical history not suggestive of infection. No change in management recommended at this time. Follow up with PCP as previously recommended or sooner as needed if develops signs/symptoms of infection. 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 Rule Out COVID-19 01/18/2024 01/18/2024 01/18/2024 8:53 PM FLUORESCENT LIGHTING MODEL MAKER Rule Out COVID-19 01/28/2024 01/28/2024 01/28/2024 10:22 PM FLUORESCENT LIGHTING MODEL MAKER Rule Out COVID-19 02/17/2024 02/17/2024 02/17/2024 5:07 PM CDT Assessment Noted Time PHQ-9 Depression Total Score: 3 05/27/20 5:00 PM CDT documented as of this encounter Care Teams Erp Manager Relationship Specialty Start [place] [address] [address] [place] [address] PCP - General Family Medicine 04/22/23 [place] [address] [address] [address] Assigned Pain Medication Provider 12/07/22 [place] [address] [address] [address] Assigned PCP 01/23/23 [place] [address] [place] [address] [place] [address] Assigned Musculoskeletal Provider 01/23/23 Gregorio Dalton PA-C [address] [place] [address] Assigned Surgical Provider 05/22/23 Kingsley Garcia MD [address] [place] [address] Assigned Heart and Vascular Provider 08/07/23 [place] [address] [facility] [place] [address] Family Medicine 09/10/23 Master Shea PA-C [address] [facility] [address] Physician Flatware Maker Gastroenterology 09/10/23 Allyssa Justice MD [facility] [address] [place] [address] Hematology & Oncology 12/10/23 Genaro Christian MD [address] [place] [address] Cardiovascular Disease 12/22/23 Master Shea PA-C [address] [place] [address] Assigned Gastroenterology Provider 12/23/23 Sienna Guillermo DO [address] [place] [address] Physician Cardiovascular Disease 01/18/24 Allyssa Justice MD [facility] [address] [place] [address] Assigned Cancer Care Provider 03/21/24 documented as of this encounter
--- OUTSIDE RECORDS SUMMARY | 2024-03-25 18:19 | XMS_ITS | Encounter Summary ---
Author Name Unknown Organization [place] Address [facility] [place] [address] Care Team Providers Care Boilers Inspector Name Role Phone Segundo Mcclelland MD Unavailable [phone] Segundo Mcclelland MD Unavailable [phone] Qamar [place] MD Unavailable Segundo Mcclelland MD Primary Care Provider + Gregorio Dalton PA-C Unavailable [phone] Kingsley Garcia MD Unavailable + [phone] Segundo Mcclelland MD Unavailable [phone] Master Shea PA-C Unavailable Allyssa Justice MD Unavailable [phone] Genaro Christian MD Unavailable [phone] Master Shea PA-C Unavailable Reason for Visit * Reason Onset Date Comments Medication Request 01/08/2024 Encounter Details Date Type Department Care Team (Late st Contact Info) Description 01/08/2024 Telephone [facility] [address] [place] [address] Gardenia Ceja, horticulture worker Request Social History Tobacco Use Types Packs/Day [...] encounter Miscellaneous Notes * Telephone Encounter - Gardenia Ceja RN - 01/08/2024 8:00 AM CST Patient is restricted to her PCP for medications and is currently in the ED with a bladder infection. Patient asking if PCP can be reached to get prescription. Call dropped. Call back to patient who reports the ED will give the patient IV antibiotics to coverpatient until she can be seen on Wednesday by PCP. 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 Assessment Noted Time PHQ-9 Depression Total Score: 3 05/27/20 23 5:00 PM CDT documented as of this encounter Care Teams Boilers Inspector Relationship Specialty Start [place] [address] [place] [address] PCP - General Family Medicine 04/22/23 [place] [address] [place] [address] Assigned Pain Medication Provider 12/07/22 [place] [address] [place] [address] Assigned PCP 01/23/23 [place] [address] [place] [address] Assigned Musculoskeletal Provider 01/23/23 Gregorio Dalton PA-C [address] [address] Assigned Surgical Provider 05/22/23 Kingsley Garcia MD [address] [place] [address] Assigned Heart and Vascular Provider 08/07/23 [place] [address] [place] [address] Family Medicine 09/10/23 Master Shea PA-C [address] [place] [address] Physician Track Laying Equipment Operator Gastroenterology 09/10/23 Allyssa Justice MD [facility] [address] [place] [address] [place] [address] Hematology & Oncology 12/10/23 Genaro Christian MD [address] [place] [address] Cardiovascular Disease 12/22/23 Master Shea PA-C [address] [place] [address] Assigned Gastroenterology Provider 12/23/23 documented as of this encounter
--- OUTSIDE RECORDS SUMMARY | 2024-03-25 18:19 | XMS_ITS | Encounter Summary ---
Author Name Unknown Organization [place] Address [facility] [place] [address] Care Team Providers Care Food Service Associate Name Role Phone Segundo Mcclelland MD Unavailable [phone] Segundo Mcclelland MD Unavailable [phone] Qamar [place] MD Unavailable Segundo Mcclelland MD Primary Care Provider + Gregorio Dalton PA-C Unavailable [phone] Kingsley Garcia MD Unavailable + [phone] Segundo Mcclelland MD Unavailable [phone] Master Shea PA-C Unavailable Allyssa Justice MD Unavailable [phone] Genaro Christian MD Unavailable + [phone] Master Shea-C Unavailable Sienna Guillermo DO Unavailable [phone] Allyssa Justice MD Unavailable [phone] Encounter Details Date Type Department Care Team (Late st Contact Info) Description 01/10/2024 MyC Medical Advice [facility] [address] [place] [address] [place] [address] [place] [address] Social History Tobacco Use Types Packs/Day Years [...] Telephone Encounter - Jolie Solomon RN - 01/10/2024 2:32 PM CST Routing to PCP as FYI Jolie Solomon RN on 01/10/2024 at 2:33 PM JACKER documented in this encounter Plan of Treatment Upcoming Encounters Date Type Department Care Team (Late st Contact Info) Description 05/09/2024 10:00 AM CDT Office Visit [facility] [address] [address] [place] [address] [place] [address] documented as of this encounter Visit Diagnoses Not on file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 Rule Out COVID-19 01/18/2024 01/18/2024 01/18/2024 8:53 PM YARD JACKER Rule Out COVID-19 01/28/2024 01/28/2024 01/28/2024 10:22 PM YARD JACKER Rule Out COVID-19 02/17/2024 02/17/2024 02/17/2024 5:07 PM CDT Assessment Noted Time PHQ-9 Depression Total Score: 3 05/27/20 5:00 PM CDT documented as of this encounter Care Teams Food Service Associate Relationship Specialty Start [place] [address] [place] [address] PCP - General Family Medicine 04/22/23 [place] [address] [place] [address] Assigned Pain Medication Provider 12/07/22 [place] [address] [place] [address] Assigned PCP 01/23/23 [place] [address] [place] [address] [address] Assigned Musculoskeletal Provider 01/23/23 Gregorio Dalton PA-C [address] [address] Assigned Surgical Provider 05/22/23 Kingsley Garcia MD [address] [place] [address] Assigned Heart and Vascular Provider 08/07/23 [place] [address] [place] [address] Family Medicine 09/10/23 Master Shea PA-C [address] [place] [address] Physician Gristmill Operator Gastroenterology 09/10/23 Allyssa Justice MD [facility] [address] [place] [address] Hematology & Oncology 12/10/23 Genaro Christian MD [address] [place] [address] Cardiovascular Disease 12/22/23 Master Shea PA-C [address] [place] [address] Assigned Gastroenterology Provider 12/23/23 Sienna Guillermo DO [address] [place] [address] Physician Cardiovascular Disease 01/18/24 Allyssa Justice MD [facility] [address] [place] [address] Assigned Cancer Care Provider 03/21/24 documented as of this encounter
--- OUTSIDE RECORDS SUMMARY | 2024-03-25 18:19 | XMS_ITS | Encounter Summary ---
Author Name Unknown Organization [place] Address [address] [place] [address] Care Team Providers Care Heddle Machine Operator Name Role Phone Segundo Mcclelland MD Unavailable [phone] Segundo Mcclelland MD Unavailable [phone] Qamar Jackson MD Unavailable Segundo Mcclelland MD Primary Care Provider + Gregorio Dalton PA-C Unavailable [phone] Kingsley Garcia MD Unavailable [phone] Segundo Mcclelland MD Unavailable [phone] Master Shea PA-C Unavailable Allyssa Justice MD Unavailable [phone] Genaro Christian MD Unavailable [phone] Master Shea PA-C Unavailable Reason for Visit * Reason Comments Abnormal Labs Abnormal blood cultu res * Auth/Cert (Routine) Specialty Diagnoses / Procedures Referred By Vivek ching Referred To Contact Med Surg Diagnoses Positive blood culture Positive blood culture [address] [facility] [address] [place] [id number] Referral ID Status Reason Start Date Expiration Date Visits Re quested Visits Authorized [id number] 1 1 Encounter Details Date Type Department Care Team (Late st Contact Info) Description 01/09/2024 10:13 PM FINISH MENDER - 01/10/2024 6:39 PM FINISH MENDER Emergency [place] [id number] [facility] [address] [place] [phone] Manpreet Marin MD [facility] [address] [place] [phone] Jaime Mckeon MD [address] [id number] Kingsley Peraza MD [address] [place] [id number] Positive blood culture Discharge Disposition: Home or Self Care Social [...] Sign Reading Time Taken Comments Blood Pressure 112/76 01/10/2024 3:00 PM FINISH MENDER Pulse 99 01/10/2024 3:00 PM FINISH MENDER Temperature 37.1 ??C (98.7 ??F) 01/10/2024 3:00 PM CS T Respiratory Rate 16 01/10/2024 3:00 PM FINISH MENDER Oxygen Saturation 99% 01/10/2024 3:00 PM FINISH MENDER Inhaled Oxygen Concentration - - Weight 88.5 kg (195 lb) 01/09/2024 10:17 PM FINISH MENDER Height 167.6 cm (5' 6) 01/09/2024 10:17 PM FINISH MENDER Body Mass Index 31.47 01/09/2024 10:17 PM FINISH MENDER documented in this encounter Discharge Summaries * Kingsley Peraza MD - 01/10/2024 6:39 PM CST Images from the original note were not included. [facility] Hospitalist Discharge Summary Date of Admission: 01/09/2024 Date of Discharge: 01/10/2024 6:39 PM Discharging Provider: Kingsley Peraza MD Discharge Service: Hospitalist Service Discharge Diagnoses Positive blood culture likely a contaminant Clinically Significant Risk Factors # Obesity: Estimated body mass index is 31.47 kg/m?? as calculated from the following: Height as of this encounter: 1.676 m (5' 6). Weight as of this encounter: 88.5 kg (195 lb). Follow-ups Needed After Discharge Follow-up Appointments Follow-up and recommended labs and tests Follow up with primary care provider, Segundo Mcclelland, within 7 days for hospital follow- up. The following labs/tests are recommended: complete blood count and basic metabolic profile. Unresulted Labs Ordered in the Past 30 Days of this Admission Date and Time Order Name Status Description 01/09/2024 10:39 PM Blood Culture Peripheral Blood Preliminary 01/09/2024 10:39 PM Blood Culture Peripheral Blood Preliminary 01/08/2024 5:54 AM Blood Culture Peripheral Blood Preliminary 01/08/2024 5:54 AM Blood Culture Peripheral Blood Preliminary These results will be followed up by infectious disease Discharge Disposition Discharged to home Condition at discharge: Stable Hospital Course Sandi Lopez is a 37 year old female with multiple medical problems who was seen in the ER 2days prior to admission with symptoms of a complicated urinary tract infection. She was given ceftriaxone and discharged. 12 blood cultures grew lactobacillus and she was recalled for admission. Urine culture was negative for infection. On admission she had no significant urinary symptoms, fever or leukocytosis. Blood cultures were repeated and the patient was seen by the infectious disease physician. No antibiotics were recommended and the positive culture is not felt to be clinically significant. The patient will discharge home and can be contacted if her repeat cultures turn positive. Consultations This Hospital Stay INFECTIOUS DISEASES IP CONSULT VASCULAR ACCESS ADULT IP CONSULT CARE MANAGEMENT / SOCIAL WORK IP CONSULT VASCULAR ACCESS ADULT IP CONSULT Code Status Prior Time Spent on this Encounter IKingsley MD, personally saw the patient today and spent less than or equal to 30 minutes discharging this patient. Kingsley Peraza MD [place] [address] [facility] [address] [place] [address] Physical Exam Vital Signs: Temp: 98.7 ??F (37.1 ??C) Temp src: Oral BP: 112/76 Pulse: 99 Resp: 16 SpO2: 99 % O2 Device: None (Room air) Weight: 195 lbs 0 oz Awake, alert and oriented Primary Care Physician Segundo Mcclelland Discharge Orders Reason for your hospital stay Positive blood culture result Follow-up and recommended labs and tests Follow up with primary care provider, Segundo Mcclelland, within 7 days for hospital follow- up. The following labs/tests are recommended: complete blood count and basic metabolic profile. Activity Your activity upon discharge: activity as tolerated Diet Follow this diet upon discharge: Orders Placed This Encounter Regular Diet Adult Significant Results and Procedures Most Recent 3 CBC's: Recent Labs Lab Test 01/10/24 0154 01/08/24 0427 01/05/24 0349 WBC 9.7 8.8 12.7* HGB 12.7 11.6* 12.9 MCV 84 83 83 PLT 410 354 387 Most Recent 3 BMP's: Recent Labs Lab Test 01/10/24 0154 01/08/24 0427 01/05/24 0349 NA 137 136 138 POTASSIUM 4.3 4.1 4.8 CHLORIDE 101 101 100 CO2 24 24 23 BUN 7.6 7.1 11.4 CR 0.61 0.65 0.79 ANIONGAP 12 11 15 KATERINA 9.1 9.6 9.6 GLC 92 88 94 7-Day Micro Results Collected Updated Procedure Result Status 01/10/202415301/11/2024 0417 Blood Culture Peripheral Blood [[id number]] Peripheral Blood Preliminary result Component Value Culture No growth after 1 day [P] 01/10/2024 0154 01/11/2024 0417 Blood Culture Peripheral Blood [[id number]] Peripheral Blood Preliminary result Component Value Culture No growth after 1 day [P] 01/08/2024 0900 01/10/2024 1443 Blood Culture Peripheral Blood [[id number]] (Abnormal) Peripheral Blood Preliminary result Component Value Culture Positive on the 2nd day of incubation [P] Lactobacillus species [P] Identification obtained by MALDI-TOF mass spectrometry research use only database. Test characteristics determined and verified by the [facility]. 01/08/2024 0900 01/09/2024 2212 Verigene GP Panel [[id number]] Peripheral Blood Final result Component Value Staphylococcus species Not Detected Staphylococcus aureus Not Detected Staphylococcus epidermidis Not Detected Staphylococcus lugdunensis Not Detected Enterococcus faecalis Not Detected Enterococcus faecium Not Detected Streptococcus species Not Detected Streptococcus agalactiae Not Detected Streptococcus anginosus group Not Detected Streptococcus pneumoniae Not Detected Streptococcus pyogenes Not Detected Listeria species Not Detected 01/08/2024 0657 01/10/2024 1146 Blood Culture Peripheral Blood [[id number]] Peripheral Blood Preliminary result Component Value Culture No growth after 2 days [P] 01/08/2024 0634 01/09/2024 0613 Urine Culture [[id number]] Urine, Midstream Final result Component Value Culture <10,000 CFU/mL Mixture of Urogenital Aiyana , Results for orders placed or performed during the hospital encounter of 01/05/24 CT Head w/o Contrast Narrative CT SCAN OF THE HEAD WITHOUT CONTRAST 01/05/2024 10:05 AM HISTORY: fall, confusion TECHNIQUE: Axial images of the head and coronal reformations without IV contrast material. Radiation dose for this scan was reduced using automated exposure control, adjustment of the mA and/or kV according to patient size, or iterative reconstruction technique. COMPARISON: 12/19/2023 FINDINGS: There is no evidence of intracranial hemorrhage, mass, acute infarct or anomaly. The ventricles are normal in size, shape and configuration. The brain parenchyma and subarachnoid spaces are normal. The visualized portions of the sinuses and mastoids appear normal. The bony calvarium and bones of the skull base appear intact. Impression IMPRESSION: No evidence of acute intracranial hemorrhage, mass, or herniation. JONNA MAJANO MD XR Knee Right 3 Views Narrative EXAM: XR KNEE RIGHT 3 VIEWS LOCATION: [facility] DATE: 01/05/2024 INDICATION: fall, pain COMPARISON: None. Impression IMPRESSION: Normal joint spaces and alignment. No fracture or joint effusion. CT Abdomen Pelvis w/o Contrast Narrative CT ABDOMEN PELVIS WITHOUT CONTRAST 01/05/2024 10:06 AM CLINICAL HISTORY: Abdominal pain. Left upper quadrant and epigastric pain, fall down stairs. TECHNIQUE: CT scan of the abdomen and pelvis was performed without IV contrast. Multiplanar reformats were obtained. Dose reduction techniques were used. CONTRAST: None. COMPARISON: December 19, 2023 FINDINGS: LOWER CHEST: No infiltrates or effusions. HEPATOBILIARY: No significant mass or bile duct dilatation. Cholecystectomy. PANCREAS: No significant mass, duct dilatation, or inflammatory change. SPLEEN: Normal size. ADRENAL GLANDS: No significant nodules. KIDNEYS/BLADDER: No significant mass, stones, or hydronephrosis. BOWEL: No obstruction or inflammatory change. VASCULATURE: No abdominal aortic aneurysm. PELVIC ORGANS: No pelvic masses. OTHER: No free air or free fluid. Normal caliber aorta. MUSCULOSKELETAL: No frankly destructive bony lesions. Impression IMPRESSION: No acute process demonstrated. BECKA MOBLEY MD *Note: Due to a large number of results and/or encounters for the requested time period, some results have not been displayed. A complete set of results can be found in Results Review. Discharge Medications Discharge Medication List as of 01/10/2024 5:29 PM CONTINUE these medications which have NOT CHANGED Details acetaminophen (TYLENOL) 325 MG tablet Take 325-650 mg by mouth every 6 hours as needed for mild pain, Historical apixaban ANTICOAGULANT (ELIQUIS) 5 MG tablet Take 1 tablet (5 mg) by mouth 2 times daily, Disp-180 tablet, R-1, E-Prescribe bacitracin 500 UNIT/GM external ointment Apply topically daily Apply daily to the right heel wound,after cleansing and blotting area dry.Disp-30 g, [id number] childrens multivitamin w/iron (FLINTSTONES COMPLETE) chewable tablet Take 1 chew tab by mouth daily, Historical Cholecalciferol (VITAMIN D3) 50 MCG (1999 UT) CAPS Take 1 capsule by mouth daily, Historical diphenhydrAMINE (BENADRYL) 25 MG capsule Take 1 capsule (25 mg) by mouth every 6 hours as needed (nausea), No Print Out EPINEPHrine (ANY BX GENERIC EQUIV) 0.3 MG/0.3ML injection 2-pack Inject 0.3 mLs (0.3 mg) into the muscle once as needed for anaphylaxis, Disp-1 each, R-0, E-Prescribe folic acid (FOLVITE) 1 MG tablet Take 1 mg by mouth daily, Historical gabapentin (NEURONTIN) 800 MG tablet Take 800 mg by mouth 3 times daily, Historical HYDROmorphone (DILAUDID) 4 MG tablet Take 0.5-1 tablets (2-4 mg) by mouth every 4 hours as needed for severe pain, Disp-6 tablet, R-0, E-Prescribe LORazepam (ATIVAN) 1 MG tablet Take 1 mg by mouth every 6 hours as needed for anxiety, Historical naloxone (NARCAN) 4 MG/0.1ML nasal spray [place] 4 mg into one nostril alternating nostrils once as needed for opioid reversal, Historical pantoprazole (PROTONIX) 40 MG EC tablet Take 1 tablet (40 mg) by mouth 2 times daily (before meals), Disp-180 tablet, R-1, E-Prescribe phenazopyridine (PYRIDIUM) 100 MG tablet Take 1 tablet (100 mg) by mouth 3 times daily as needed for urinary tract discomfort, Disp-9 tablet, R-0, E-Prescribe zolpidem (AMBIEN) 10 MG tablet Take 10 mg by mouth At Bedtime, Historical STOP taking these medications Rivaroxaban ANTICOAGULANT 15 & 20 MG TBPK Starter Therapy Pack Comments: Reason for Stopping: Allergies Allergies Allergen Reactions Chlorhexidine Itching and [...] 25 mg benadryl PIV prior to contrast SH MENDER documented in this encounter Medications at Time [...] Take 1 capsule by mouth daily 08/31/2023 folic acid (FOLVITE) 1 MG tablet Take 1 mg by mouth daily gabapentin (NEURONTIN) 800 MG tablet Take 800 mg by mouth 3 times daily LORazepam (ATIVAN) 1 MG tablet Take 1 mg by mouth every 6 hours as needed for anxiety zolpidem (AMBIEN) 10 MG tablet Take 10 mg by mouth At Bedtime 12/17/2022 diphenhydrAMINE (BENADRYL) 25 MG capsuleIndications:Int ractable nausea and vomiting Take 1 capsule (25 mg) by mouth every 6 hours as needed (nausea) 11/15/2023 EPINEPHrine (ANY BX GENERIC EQUIV) 0.3 MG/0.3ML injection 2-pack Inject 0.3 mLs (0.3 mg) into the muscle once as needed for anaphylaxis 1 each 04/17/2021 naloxone (NARCAN) 4 MG/0.1ML nasal spray [place] 4 mg into one nostril alternating nostrils once as needed for opioid reversal 06/28/2023 apixaban ANTICOAGULANT (ELIQUIS) 5 MG tabletIndications:Mult iple subsegmental pulmonary emboli without acute cor pulmonale (H) Take 1 tablet (5 mg) by mouth 2 times daily 180 tablet 1 01/06/2024 03/13/2024 HYDROmorphone (DILAUDID) 4 MG tabletIndications:Pleu ritic chest [...] urinary tract discomfort 9 tablet 01/08/2024 03/01/2024 bacitracin 500 UNIT/GM external ointmentIndications:Ul cer of right foot, limited to breakdown of skin (H),Ulcer of right foot, limited to breakdown of skin (H) Apply topically daily Apply daily to the right heel wound, after cleansing and blotting area dry. 30 g 12/08/2023 02/11/2024 documented as of this encounter Progress Notes * Vero Rivera RN - 01/10/2024 5:51 PM CST Patient is AO X 4; VSS; on RA; She wanted a bolus of NS via IVF because she was too nauseated to drink fluids; unfortunately, IV access couldn't be secured. As an option, Sadni, was offered placement of NJ tube and administration of water through the tube, but she refused. She is being discharged home. One last dose of Dilaudid and Tylenol were administered. She acknowledged understanding of discharged instructions and had opportunities to ask questions; all questions were answered. SH MENDER * Dominga Tinoco RN - 01/10/2024 1:42 PM CST VAT spoke with RN caring for patient. Patient is well known to the VAT. Reviewed MAR. Currently no need for PIV at this time. SH MENDER * Nallely Nuñez RN - 01/10/2024 6:14 AM CST Summary: past medical history including hypertension, recurrent DVT, POTS with history of syncope, depression, anxiety, gastroparesis, chronic pain/dysuria, chronic anemia, hx of ESBL Klebsiella pneumonia and E faecalis bacteremia, candidemia who presents with positive blood cultures. Admitted on 01/09/2024 DATE & TIME: 01/10/2024 [id number] Cognitive Concerns/ Orientation : A/O x4, anxious BEHAVIOR & AGGRESSION TOOL COLOR: green CIWA SCORE: NA ABNL VS/O2: VSS on RA MOBILITY: Indp x has IV in foot so BSC. Hx of falls/syncope GB and hands-on SBA PAIN MANAGMENT: Dilaudid/Tylenol DIET: Regular BOWEL/BLADDER: Continent. Emesis this a.m. calling MD to chg PO ativan/benadryl to IV ABNL LAB/BG: UTI, + blood cultures from 01/08 DRAIN/DEVICES: IV in L foot to TKO TELEMETRY RHYTHM: NA SKIN: scattered bruises, left back from recent fall down the stairs she states Consults: ID TESTS/PROCEDURES: NA D/C DAY/GOALS/PLACE: Obsv status OTHER IMPORTANT INFO: fall risk 2/2 syncope SH MENDER * Nallely Nuñez RN - 01/10/2024 4:08 AM CST RECEIVING UNIT ED HANDOFF REVIEW ED Nurse Handoff Report was reviewed by: Nallely Nuñez RN on January 10, 2024 at 4:08 AM SH MENDER documented in this encounter H&P Notes * Jaime Mckeon MD - 01/10/2024 2:14 AM CST [facility] History and Physical - Hospitalist Service Date of Admission: 01/09/2024 Assessment & Plan Sandi Lopez is a 37 year old female with past medical history including hypertension, recurrent DVT, POTS with history of syncope, depression, anxiety, gastroparesis, chronic pain/dysuria, chronic anemia, hx of ESBL Klebsiella pneumonia and E faecalis bacteremia, candidemia who presents with positive blood cultures. Admitted on 01/09/2024 Positive blood culture, suspect contaminant *Presents with positive blood cultures 1 of 2 bottles with gram positive rods from ED visit 01/08, where she was seen for flank pain and urinary symptoms with abnormal UA *UC from 01/08/24 with urogenital aiyana *Recent CT 01/05/24 with no acute process and no stone *Non-toxic appearing, afebrile, lactic acid normal, WBC normal *Case discussed with ID from ED, likely contaminant, but recommended observation - Follow-up blood cultures from 01/08 - Repeat blood cultures ordered in ED - ID consulted - Discontinue prior antibiotics with negative culture Acute on chronic abdominal pain and dysuria Hx of opioid/benzodiazapine use disorder - Hydromorphone 2 mg PO q4H PRN - Resume prior to admission gabapentin when dose confirmed by pharmacy Hx of recurrent PE/VTE Last PE 12/02/2023. - Apixaban BID POTS HR currently stable - Requesting discussion regarding port replacement, discussed ongoing conversations with primary care provider Anxiety Depression Bipolar disorder Borderline personality disorder Reports severe anxiety during hospitalizations - Resume prior to admission lorazepam per patient request GERD - Resume prior to admission PPI when dose confirmed by pharmacy Obesity Body mass index is Body mass index is 31.47 kg/m??. Previously on semaglutide, but discontinued dueto gastroparesis. Increase in all-cause morbidity and mortality. Encourage weight loss. Diet: Regular diet DVT Prophylaxis: DOAC Garcia Catheter: Not present Code Status: Full code Disposition Plan [place] to observation status. Anticipate discharge within 24 hours if clinically improved. Entered: Jaime Mckeon MD 01/10/2024, 2:14 AM The patient's care was discussed with the ED provider, patient 60 MINUTES SPENT BY ME on the date of service doing chart review, history, exam, documentation & further activities per the note. Clinically Significant Risk Factors Present on Admission # Drug Induced Coagulation Defect: home medication list includes an anticoagulant medication # Obesity: Estimated body mass index is 31.47 kg/m?? as calculated from the following: Height as of this encounter: 1.676 m (5' 6). Weight as of this encounter: 88.5 kg (195 lb). # Financial/Environmental Concerns: Jaime Mckeon MD [facility] Chief Complaint Positive blood cultures History of Present Illness Sandi Lopez is a 38 year old female who presents with the above chief complaint. History is obtained from the patient, discussion with ED provider and review of medical record. Thepatient presented to the ED on 01/08 with acute on chronic dysuria, was diagnosed with possible UTI and discharged. Blood cultures obtained were positive with gram positive bacilli and she was recommended to come back to the ED for further evaluation. She reports some chills 01/09/24, and took an acet aminophen suppository. She reports her chronic abdominal pain and dysuria. In the Emergency Department, the patient was seen by Dr. Marin, with whom I discussed the patient's presenting symptoms and emergency department course. Initial vital signs were a temperature of 98.5F, HR 97, BP 103/57, RR 18, SpO2 98% on room air. Pertinent work-up as noted in A&P. Hospitalists were contacted for admission to the hospital. Past Medical History I have reviewed this patient's medical history and updated it with pertinent information if needed. Past Medical History: Diagnosis Date Abnormal Pap smear Garrison/2 LEEPs age 16 Allergic rhinitis Anemia 2011 [...] left knee; Surgeon: Rafael Vela DO; Location: [facility] OR BACK SURGERY 2019 CAUTERY OF CERVIX, CRYOCAUTERY 05/2004 CERCLAGE CERVICAL 10/30/2011 Procedure:CERCLAGE CERVICAL; CERCLAGE CERVICAL; Surgeon:JACOB VAUGHAN; Location: OR CERCLAGE CERVICAL 10/30/2011 Procedure:CERCLAGE CERVICAL; REMOVAL CERVICLE CERCLAGE AND REPLACEMENT OF CERCLAGE CERVICAL; Surgeon:JACOB VAUGHAN; Location:[facility] OR CHOLECYSTECTOMY COLONOSCOPY 2013 COLPOSCOPY,LOOP ELECTRD CERVIX EXCIS 11/2004 Diagnostic pelvic laparoscopy 12/2005 ENDOSCOPIC RETROGRADE CHOLANGIOPANCREATOGRAPHY ESOPHAGOSCOPY, GASTROSCOPY, DUODENOSCOPY (EGD), COMBINED 11/23/2012 Procedure: COMBINED ESOPHAGOSCOPY, GASTROSCOPY, DUODENOSCOPY (EGD);; Surgeon: Brannon Villarreal MD; Location: [facility] ESOPHAGOSCOPY, GASTROSCOPY, DUODENOSCOPY (EGD), COMBINED N/A 02/13/2016 Procedure: ESOPHAGOGASTRODUODENOSCOPY; Surgeon: Meg Lee MD; Location: [facility] GI; Service: ESOPHAGOSCOPY, GASTROSCOPY, DUODENOSCOPY (EGD), COMBINED N/A 02/13/2016 Procedure: ESOPHAGOGASTRODUODENOSCOPY; Surgeon: Meg Lee MD; Location: [facility] OR; Service: ESOPHAGOSCOPY, GASTROSCOPY, DUODENOSCOPY (EGD), COMBINED N/A 05/05/2023 Procedure: ESOPHAGOGASTRODUODENOSCOPY; Surgeon: Manpreet Lorenzo MD; Location: [facility] OR [...] CONTROLLED EPITAXIS; Surgeon: Declan Mata MD; Location: [facility] OR; Service: OOPHORECTOMY Right Talar fracture lt foot surgery 10/1998 TONSILLECTOMY & ADENOIDECTOMY 1995 TRANSESOPHAGEAL ECHOCARDIOGRAM INTRAOPERATIVE N/A 09/17/2021 Procedure: ECHOCARDIOGRAM, TRANSESOPHAGEAL, INTRAOPERATIVE; Surgeon: GENERIC ANESTHESIA PROVIDER; Location: [facility] OR TUBAL LIGATION Social History I have reviewed this patient's social history and updated it with pertinent information if needed. Social History Tobacco Use Smoking status: Never Smokeless tobacco: Never Vaping Use Vaping Use: Never used Substance Use Topics Alcohol use: Yes Comment: occasional Drug use: No Family History I have reviewed this patient's family history and updated it with pertinent information if needed. Family History Problem Relation Age of Onset Breast Cancer Mother Other Cancer Mother uterine cacer Depression Mother Obesity Mother Colon Cancer Father Depression Father Substance Abuse Father Alcoholic Obesity Father Diabetes Paternal Grandmother Cancer - colorectal Paternal Grandfather , diagnosed in 50's, at 54 Diabetes Other Prior to Admission Medications - Pending pharmacy reconciliation Prior to Admission Medications Prescriptions Last Dose Informant Patient Reported? Taking? Cholecalciferol (VITAMIN D3) 50 MCG (2000 UT) CAPS Yes No Sig: Take 1 capsule by mouth daily EPINEPHrine (ANY BX GENERIC EQUIV) 0.3 MG/0.3ML injection 2-pack Self No No Sig: Inject 0.3 mLs (0.3 mg) into the muscle once as needed for anaphylaxis HYDROmorphone (DILAUDID) 4 MG tablet No No Sig: Take 0.5-1 tablets (2-4 mg) by mouth every 4 hours as needed for severe pain LORazepam (ATIVAN) 1 MG tablet Yes No Sig: Take 1 mg by mouth every 6 hours as needed for anxiety Multiple Vitamins-Iron (QC DAILY MULTIVITAMINS/IRON) TABS Self No No Sig: Take 1 tablet by mouth daily Rivaroxaban ANTICOAGULANT 15 & 20 MG TBPK Starter Therapy Pack No No Sig: Take 15 mg by mouth 2 times daily (with meals) for 21 days, THEN 20 mg daily with food for 9 days. apixaban ANTICOAGULANT (ELIQUIS) 5 MG tablet No No Sig: Take 1 tablet (5 mg) by mouth 2 times daily bacitracin 500 UNIT/GM external ointment No No Sig: Apply topically daily Apply daily to the right heel wound, after cleansing and blotting area dry. cefpodoxime (VANTIN) 200 MG tablet No No Sig: Take 1 tablet (200 mg) by mouth 2 times daily diphenhydrAMINE (BENADRYL) 25 MG capsule No No Sig: Take 1 capsule (25 mg) by mouth every 6 hours as needed (nausea) folic acid (FOLVITE) 1 MG tablet Yes No Sig: Take 1 mg by mouth daily gabapentin (NEURONTIN) 800 MG tablet Self Yes No Sig: Take 800 mg by mouth 3 times daily naloxone (NARCAN) 4 MG/0.1ML nasal spray Yes No Sig: [place] 4 mg into one nostril alternating nostrils once as needed for opioid reversal pantoprazole (PROTONIX) 40 MG EC tablet Self No No Sig: Take 1 tablet (40 mg) by mouth 2 times daily (before meals) phenazopyridine (PYRIDIUM) 100 MG tablet No No Sig: Take 1 tablet (100 mg) by mouth 3 times daily as needed for urinary tract discomfort zolpidem (AMBIEN) 10 MG tablet Self Yes No Sig: Take 10 mg by mouth At [...] 25 mg benadryl PIV prior to contrast Physical Exam Vital Signs: Temp: 98.5 ??F (36.9 ??C) BP: 117/79 Pulse: 86 Resp: 18 SpO2: 98 % O2 Device: None (Room air) Weight: 195 lbs 0 oz Constitutional: Well-appearing, NAD Respiratory: Normal respiratory effort at rest, non-labored breathing GI: Soft, non-tender, non-distended. No rebound tenderness or guarding. Skin: Warm, dry Neurologic: Alert. Responding to questions appropriately. Following commands. Psychiatric: Normal affect, appropriate Data Data reviewed today: I reviewed all medications, new labs and imaging results over the last 24 hours. I personally reviewed no images or EKG's today. Recent Labs Lab 01/10/24 0154 01/08/24 0427 01/05/24 1042 01/05/24 0349 WBC 9.7 8.8 -- 12.7* HGB 12.7 11.6* -- 12.9 MCV 84 83 -- 83 PLT 410 354 -- 387 NA -- 136 -- 138 POTASSIUM -- 4.1 -- 4.8 CHLORIDE -- 101 -- 100 CO2 -- 24 -- 23 BUN -- 7.1 -- 11.4 CR -- 0.65 -- 0.79 ANIONGAP -- 11 -- 15 KATERINA -- 9.6 -- 9.6 GLC -- 88 -- 94 ALBUMIN -- 4.1 -- 4.6 PROTTOTAL -- 8.0 -- 8.7* BILITOTAL -- 0.2 -- 0.2 ALKPHOS -- 276* -- 328* ALT -- 120* -- 137* AST -- 36 350* -- LIPASE -- 35 -- 36 No results found for this or any previous visit (from the past 24 hour(s)). SH MENDER documented in this encounter Consult Notes * Waleska Stevenson MD - 01/10/2024 10:29 AM CSTAssociated Order(s): INFECTIOUS DISEASES IP CONSULT Images from the original note were not included. [facility] Infectious Disease Consultation Date of Admission: 01/09/2024 Date of Consult : 01/10/24 Assessment: 37 year old chronically ill female with gastroparesis, chronic indwelling port complicated by port infection /polymicrobial bacteremia in Oct (anderson dubliniensis & anderson lipolytica, enterobacter cloacae, ESBL Klebsiella ) treated and s/p port removal who was evaluated in the ED on 01/08 for flank pain and subsequently admitted due to positive blood cx for gram positive bacillus likely contaminant -Gram positive bacilli in one blood cx bottle are likely contaminants -Treated for polymicrobial bacteremia related to port infection in Oct due to Anderson dubliniensis/anderson lipolytica, enterobacter cloacae, ESBL Klebsiella pneumoniae bacteremia and E.fecalis . Port was removed -Anemia -POTS -chronic medical conditions - Ozempic induced gastroparesis with need for IV fluids frequently, loss of > 100 lbs, hx of DVT/PE, severe anxiety, anemia, thrombocytosis, chronic pain, obesity Recommendations: No antibiotics are indicated at this time as there is no clear evidence of ongoing infection UA and Ct abdomen are negative as well, no fever or leukocytosis Supportive care ID will sign off, please call us back as needed Waleska Stevenson MD Reason for Consult Reason for consult: I was asked to evaluate this patient for positive blood cx for gram positive bacillus. Primary Care Physician Segundo Mcclelland Chief Complaint Positive blood cx History is obtained from the patient and medical records History of Present Illness Sandi Lopez is a 38 year old chronically ill female with gastroparesis, chronic indwelling port complicated by port infection /polymicrobial bacteremia in Oct (anderson dubliniensis & anderson lipolytica, enterobacter cloacae, ESBL Klebsiella ) treated and s/p port removal in October, who was evaluated in the ED on 01/08 for flank pain and subsequently admitted due to positive blood cx for gram positive bacillus. Her urine cx only grew < 10,000 CFU/ml of mixed urogenital aiyana . She has no fever or leukocytosis and one blood cx bottle only grew gram positive bacilli pending identification. CT abdomen pelvis was negative. Patient received ceftriaxone on 01/08 and has not received further antibiotics. ID has been asked to assist with further management. She has multiple chronic illnesses including hypertension, recurrent DVT, POTS with history of syncope, depression, anxiety, chronic pain/dysuria, chronic anemia as well. Patient complains of ongoing nausea and dysuria but has remained afebrile since admission and has no leukocytosis or other signs of infection Past Medical History I have reviewed this patient's medical history and updated it with pertinent information if needed. Past Medical History: Diagnosis Date Abnormal Pap smear Garrison/2 LEEPs age 16 Allergic rhinitis Anemia 2011 [...] Procedure: ESOPHAGOGASTRODUODENOSCOPY; Surgeon: Meg Lee MD; Location: [facility]; Service: ESOPHAGOSCOPY, GASTROSCOPY, DUODENOSCOPY (EGD), COMBINED N/A 02/13/2016 Procedure: ESOPHAGOGASTRODUODENOSCOPY; Surgeon: Meg Lee MD; Location: [facility] OR; Service: ESOPHAGOSCOPY, GASTROSCOPY, DUODENOSCOPY (EGD), [...] CONTROLLED EPITAXIS; Surgeon: Declan Mata MD; Location: [facility] OR; Service: OOPHORECTOMY Right Talar fracture lt foot surgery 10/1998 TONSILLECTOMY & ADENOIDECTOMY 1995 TRANSESOPHAGEAL ECHOCARDIOGRAM INTRAOPERATIVE N/A 09/17/2021 Procedure: ECHOCARDIOGRAM, TRANSESOPHAGEAL, INTRAOPERATIVE; Surgeon: GENERIC ANESTHESIA PROVIDER; Location: [facility] OR TUBAL LIGATION Prior to Admission Medications Prior to Admission Medications Prescriptions Last Dose Informant Patient Reported? Taking? Cholecalciferol (VITAMIN D3) 50 MCG (1999 UT) CAPS 01/09/2024 at am Self Yes Yes Sig: Take 1 capsule by mouth daily EPINEPHrine (ANY BX GENERIC EQUIV) 0.3 MG/0.3ML injection 2-pack prn Self No No Sig: Inject 0.3 mLs (0.3 mg) into the muscle once as needed for anaphylaxis HYDROmorphone (DILAUDID) 4 MG tablet 01/09/2024 Self No Yes Sig: Take 0.5-1 tablets (2-4 mg) by mouth every 4 hours as needed for severe pain LORazepam (ATIVAN) 1 MG tablet 01/09/2024 Self Yes Yes Sig: Take 1 mg by mouth every 6 hours as needed for anxiety Rivaroxaban ANTICOAGULANT 15 & 20 MG TBPK Starter Therapy Pack Not Taking Self No No Sig: Take 15 mg by mouth 2 times daily (with meals) for 21 days, THEN 20 mg daily with food for 9 days. Patient not taking: Reported on 01/10/2024 acetaminophen (TYLENOL) 325 MG tablet prn Yes Yes Sig: Take 325-650 mg by mouth every 6 hours as needed for mild pain apixaban ANTICOAGULANT (ELIQUIS) 5 MG tablet 01/09/2024 at am Self No Yes Sig: Take 1 tablet (5 mg) by mouth 2 times daily bacitracin 500 UNIT/GM external ointment Not Taking Self No No Sig: Apply topically daily Apply daily to the right heel wound, after cleansing and blotting area dry. Patient not taking: Reported on 01/10/2024 childrens multivitamin w/iron (FLINTSTONES COMPLETE) chewable tablet 01/09/2024 at am Self Yes Yes Sig: Take 1 chew tab by mouth daily diphenhydrAMINE (BENADRYL) 25 MG capsule prn Self No No Sig: Take 1 capsule (25 mg) by mouth every 6 hours as needed (nausea) folic acid (FOLVITE) 1 MG tablet 01/09/2024 at am Self Yes Yes Sig: Take 1 mg by mouth daily gabapentin (NEURONTIN) 800 MG tablet 01/09/2024 at afternoon Self Yes Yes Sig: Take 800 mg by mouth 3 times daily naloxone (NARCAN) 4 MG/0.1ML nasal spray prn Self Yes No Sig: [place] 4 mg into one nostril alternating nostrils once as needed for opioid reversal pantoprazole (PROTONIX) 40 MG EC tablet 01/09/2024 at am Self No Yes Sig: Take 1 tablet (40 mg) by mouth 2 times daily (before meals) phenazopyridine (PYRIDIUM) 100 MG tablet 01/09/2024 at am Self No Yes Sig: Take 1 tablet (100 mg) by mouth 3 times daily as needed for urinary tract discomfort zolpidem (AMBIEN) 10 MG tablet prn Self Yes Yes Sig: Take 10 mg [...] (Ghazal) 02/03/2021 DTaP, Unspecified 02/05/2014 Flu, Unspecified 08/29/2012 [id number] Novel Flu 09/26/2012 HepB 07/16/2000, 08/13/2000 HepB, Unspecified 03/16/2005 Hepatitis A (ADULT 19+) 03/16/2005 Influenza (IIV3) PF 09/29/2008, 08/29/2010, 12/08/2012, 10/17/2013 Influenza Vaccine >6 months,quad, PF 08/15/2018 Influenza Vaccine, 6+MO IM (QUADRIVALENT W/PRESERVATIVES) 09/17/2012 MMR 08/11/1988, 07/16/2000 Meningococcal (Menomune??) 03/16/2005 Pneumococcal 23 valent 09/23/2006, 10/13/2008, 12/08/2012 Poliovirus, inactivated (IPV) 09/07/1991, 03/16/2005 TD,PF 7+ (Tenivac) 1985, 07/16/2000, 12/18/2004, 03/16/2005 Tdap (Adult) Unspecified Formulation 1985 Typhoid Oral 03/16/2005 Yellow Fever 03/16/2005 Social History I have reviewed this patient's social history and updated it with pertinent information if needed. Sandi Nelson John reports that she has never smoked. She has never used smokeless tobacco. She reports current alcohol use. She reports that she does not use drugs. Family History I have reviewed this [...] The 10 point Review of Systems is as per HPI Physical Exam Temp: 98.7 ??F (37.1 ??C) Temp src: Oral BP: 93/66 Pulse: 105 Resp: 16 SpO2: 98 % O2 Device: None (Room air) Vital Signs with Ranges Temp: [98.3 ??F (36.8 ??C)-98.7 ??F (37.1 ??C)] 98.7 ??F (37.1 ??C) Pulse: [86-105] 105 Resp: [16-18] 16 BP: (93-142)/(57-125) 93/66 SpO2: [97 %-99 %] 98 % 195 lbs 0 oz Body mass index is 31.47 kg/m??. GENERAL APPEARANCE: awake EYES: Eyes grossly normal to inspection NECK: supple RESP: non labored MS: extremities normal SKIN: no suspicious lesions or rashes Data All laboratory data reviewed Component Latest Ref [facility] 01/10/2024 1:54 AM WBC 4.0 - 11.0 10e3/uL 9.7 RBC Count 3.80 - 5.20 10e6/uL 4.76 Hemoglobin 11.7 - 15.7 g/dL 12.7 Hematocrit 35.0 - 47.0 % 39.8 MCV 78 - 100 fL 84 MCH 26.5 - 33.0 pg 26.7 MCHC 31.5 - 36.5 g/dL 31.9 RDW 10.0 - 15.0 % 23.9 (H) Platelet Count 150 - 450 10e3/uL 410 Component Latest Ref [facility] 01/10/2024 1:54 AM Sodium 135 - 145 mmol/L 137 Potassium 3.4 - 5.3 mmol/L 4.3 Carbon Dioxide (CO2) 22 - 29 mmol/L 24 Anion Gap 7 - 15 mmol/L 12 Urea Nitrogen 6.0 - 20.0 mg/dL 7.6 Creatinine 0.51 - 0.95 mg/dL 0.61 GFR Estimate >60 mL/min/1.73m2 >90 Calcium 8.6 - 10.0 mg/dL 9.1 Chloride 98 - 107 mmol/L 101 Glucose 70 - 99 mg/dL 92 Alkaline Phosphatase 40 - 150 U/L 305 (H) AST 0 - 45 U/L 43 ALT 0 - 50 U/L 125 (H) Protein Total 6.4 - 8.3 g/dL 8.3 Albumin 3.5 - 5.2 g/dL 4.3 Bilirubin Total <=1.2 mg/dL <0.2 Microbiology 01/08 blood cx 01/08/2024 0900 01/09/2024 1934 Blood Culture Peripheral Blood [[id number]] (Abnormal) Peripheral Blood Preliminary result Component Value Culture Positive on the 2nd day of incubation Abnormal P Gram positive bacilli Panic P 1 of 1 bottles 01/08/2024 0900 01/09/2024 2212 Verigene GP Panel [[id number]] Peripheral Blood Final result Component Value Staphylococcus species Not Detected Staphylococcus aureus Not Detected Staphylococcus epidermidis Not Detected Staphylococcus lugdunensis Not Detected Enterococcus faecalis Not Detected Enterococcus faecium Not Detected Streptococcus species Not Detected Streptococcus agalactiae Not Detected Streptococcus anginosus group Not Detected Streptococcus pneumoniae Not Detected Streptococcus pyogenes Not Detected Listeria species Not Detected Imaging CT ABDOMEN PELVIS WITHOUT CONTRAST 01/05/2024 10:06 AM CLINICAL HISTORY: Abdominal pain. Left upper quadrant and epigastric pain, fall down stairs. TECHNIQUE: CT scan of the abdomen and pelvis was performed without IV contrast. Multiplanar reformats were obtained. Dose reduction techniques were used. CONTRAST: None. COMPARISON: December 19, 2023 FINDINGS: LOWER CHEST: No infiltrates or effusions. HEPATOBILIARY: No significant mass or bile duct dilatation. Cholecystectomy. PANCREAS: No significant mass, duct dilatation, or inflammatory change. SPLEEN: Normal size. ADRENAL GLANDS: No significant nodules. KIDNEYS/BLADDER: No significant mass, stones, or hydronephrosis. BOWEL: No obstruction or inflammatory change. VASCULATURE: No abdominal aortic aneurysm. PELVIC ORGANS: No pelvic masses. OTHER: No free air or free fluid. Normal caliber aorta. MUSCULOSKELETAL: No frankly destructive bony lesions. IMPRESSION: No acute process demonstrated SH MENDER documented in this encounter ED Notes * Kamryn Guerin RN - 01/10/2024 3:53 AM CST Ice packs provided for abdominal pain. SH MENDER * Kamryn Guerin RN - 01/10/2024 2:[address] [facility] ED Nurse Handoff Report ED Chief complaint: Abnormal Labs (Abnormal blood cultures ) ED Diagnosis: Final diagnoses: Positive blood culture Code Status: Full Code Allergies: Allergies Allergen Reactions Chlorhexidine Itching and [...] 25 mg benadryl PIV prior to contrast Patient Story: Patient arrives after a phone call saying she has positive blood cultures. Was seen yesterday and labs resulted today. Patient is a very difficult IV start, several nurses and provider attempted to place IV. 20g placed in left ankle. Labs and cultures obtained via straight sticks. Pt is tearful in room with several requests. Focused Assessment: Neuro: Alert, oriented x 4 Respiratory:Clear lung sounds, on room air Cardiology: WNL Gastrointestinal: soft, non tender, non distended Genitourinary/Renal: Burning with urination Musculoskeletal: moves all extremities Skin: Intact skin, bruising from multiple admission IVs Lines: 20g L ankle Labs Ordered and Resulted from Time of ED Arrival to Time of ED Departure COMPREHENSIVE METABOLIC PANEL - Abnormal Result Value Sodium 137 Potassium 4.3 Carbon Dioxide (CO2) 24 Anion Gap 12 Urea Nitrogen 7.6 Creatinine 0.61 GFR Estimate >90 Calcium 9.1 Chloride 101 Glucose 92 Alkaline Phosphatase 305 (*) AST 43 ALT 125 (*) Protein Total 8.3 Albumin 4.3 Bilirubin Total <0.2 CBC WITH PLATELETS AND DIFFERENTIAL - Abnormal WBC Count 9.7 RBC Count 4.76 Hemoglobin 12.7 Hematocrit 39.8 MCV 84 MCH 26.7 MCHC 31.9 RDW 23.9 (*) Platelet Count 410 % Neutrophils 53 % Lymphocytes 39 % Monocytes 6 % Eosinophils 2 % Basophils 0 % Immature Granulocytes 0 NRBCs per 100 WBC 0 Absolute Neutrophils 5.1 Absolute Lymphocytes 3.8 Absolute Monocytes 0.6 Absolute Eosinophils 0.2 Absolute Basophils 0.0 Absolute Immature Granulocytes 0.0 Absolute NRBCs 0.0 ISTAT GASES LACTATE VENOUS POCT - Abnormal Lactic Acid POCT 1.0 Bicarbonate Venous POCT 24 O2 Sat, Venous POCT 49 (*) pCO2 Venous POCT 44 pH Venous POCT 7.34 pO2 Venous POCT 28 BLOOD CULTURE BLOOD CULTURE No orders to display Treatments and/or interventions provided: Medications HYDROmorphone (DILAUDID) tablet 2 mg (2 mg Oral $Given 01/10/24 0113) cefTRIAXone (ROCEPHIN) 2 g vial to attach to NS 100 ml bag for ADULTS or NS 50 ml bag for PEDS (2 gIntravenous Not Given 01/10/24 0048) apixaban ANTICOAGULANT (ELIQUIS) tablet 5 mg (5 mg Oral $Given 01/10/24 0015) HYDROmorphone (DILAUDID) tablet 2 mg (2 mg Oral $Given 01/10/24 0011) sodium chloride 0.9 % infusion ( Intravenous $New Bag 01/10/24 0129) Patient's response to treatments and/or interventions: Resting comfortably To be done/followed up on inpatient unit: See any in-patient orders Does this patient have any cognitive concerns?: None Activity level - Baseline/Home: Independent Activity Level - Current: Stand with Assist Patient's Preferred language: Arabic [employer] Needed?: No Isolation: Contact Infection: ESBL Patient tested for COVID 19 prior to admission: NO Bariatric?: Yes Vital Signs: Vitals: 01/09/24 2217 01/10/24 0015 01/10/24 0020 01/10/24 0025 BP: 103/57 117/79 BP Location: Right arm Patient Position: Chair Cuff Size: Adult Large Pulse: 97 86 Resp: 18 Temp: 98.5 ??F (36.9 ??C) SpO2: 98% 98% 97% 98% Weight: 88.5 kg (195 lb) Height: 1.676 m (5' 6) Cardiac Rhythm: Was the PSS-3 completed: Yes What interventions are required if any? Family Comments: None OBS brochure/video discussed/provided to patient/family: Addison of person given brochure if not patient: Relationship to patient: For the majority of the shift this patient's behavior was Yellow. Behavioral interventions performed were redirecting several times, setting boundaries, providing non pharmacological interventions. ED NURSE PHONE NUMBER: *[phone] SH MENDER * Kamryn Guerin RN - 01/10/2024 12:25 AM CST Multiple ultrasound IV attempts with no success. Provider notified. SH MENDER * Rojelio Nunez RN - 01/09/2024 10:16 PM CST Pt states she received a call from Dr. Cox for abnormal blood culture results SH MENDER * Manpreet Marin MD - 01/09/2024 10:12 PM CST History Chief Complaint: Abnormal Labs (Abnormal blood cultures ) SATISH Lopez is a 38 year old female who presents to the emergency department with concerns about abnormal blood culture. She was in the emergency department on 08 January and was being worked up for possible UTI and abdominal discomfort. Blood cultures were obtained and have been found to be growing gram- positive bacilli. She notes that she has not felt well at home. She reports having had some fevers. She notes that earlier about a week ago she fell down multiple stairs after having asyncopal event related to her POTS. She has been taking her medications at home. Independent Historian: None - Patient Only Medications: apixaban ANTICOAGULANT (ELIQUIS) 5 MG tablet bacitracin 500 UNIT/GM external ointment cefpodoxime (VANTIN) 200 MG tablet Cholecalciferol (VITAMIN D3) 50 MCG (1999) CAPS diphenhydrAMINE (BENADRYL) 25 MG capsule EPINEPHrine (ANY BX GENERIC EQUIV) 0.3 MG/0.3ML injection 2-pack folic acid (FOLVITE) 1 MG tablet gabapentin (NEURONTIN) 800 MG tablet HYDROmorphone (DILAUDID) 4 MG tablet LORazepam (ATIVAN) 1 MG tablet Multiple Vitamins-Iron (QC DAILY MULTIVITAMINS/IRON) TABS naloxone (NARCAN) 4 MG/0.1ML nasal spray pantoprazole (PROTONIX) 40 MG EC tablet phenazopyridine (PYRIDIUM) 100 MG tablet Rivaroxaban ANTICOAGULANT 15 & 20 MG TBPK Starter Therapy Pack zolpidem (AMBIEN) 10 MG tablet Past Medical [...] Procedure: ESOPHAGOGASTRODUODENOSCOPY; Surgeon: Meg Lee MD; Location: [facility]; Service: ESOPHAGOSCOPY, GASTROSCOPY, DUODENOSCOPY (EGD), COMBINED N/A 02/13/2016 Procedure: ESOPHAGOGASTRODUODENOSCOPY; Surgeon: Meg Lee MD; Location: [facility] OR; Service: ESOPHAGOSCOPY, GASTROSCOPY, DUODENOSCOPY (EGD), [...] CONTROLLED EPITAXIS; Surgeon: Declan Mata MD; Location: [facility]; Service: OOPHORECTOMY Right Talar fracture lt foot surgery 10/1998 TONSILLECTOMY & ADENOIDECTOMY 1995 TRANSESOPHAGEAL ECHOCARDIOGRAM INTRAOPERATIVE N/A 09/17/2021 Procedure: ECHOCARDIOGRAM, TRANSESOPHAGEAL, INTRAOPERATIVE; Surgeon: GENERIC ANESTHESIA PROVIDER; Location: OR TUBAL LIGATION Physical Exam Patient Vitals for the past 24 hrs: BP Temp Pulse Resp SpO2 Height Weight 01/10/24 0025 -- -- -- -- 98 % -- -- 01/10/24 0020 -- -- -- -- 97 % -- -- 01/10/24 0015 117/79 -- 86 -- 98 % -- -- 01/09/24 2217 103/57 98.5 ??F (36.9 ??C) 97 18 98 % 1.676 m (5' 6) 88.5 kg (195 lb) Physical Exam Eyes: The pupils are equal and round Conjunctivae and sclerae are normal ENT: The nose is normal Pinnae are normal CV: Regular rate and rhythm No edema Resp: Lungs are clear Non-labored No rales No wheezing MS: Normal muscular tone No asymmetric leg swelling Skin: No rash or acute skin lesions noted Neuro: Awake, alert. Speech is normal and fluent. Face is symmetric. Moves all extremities Emergency Department Course Imaging: No orders to display Laboratory: Labs Ordered and Resulted from Time of ED Arrival to Time of ED Departure COMPREHENSIVE METABOLIC PANEL - Abnormal Result Value Sodium 137 Potassium 4.3 Carbon Dioxide (CO2) 24 Anion Gap 12 Urea Nitrogen 7.6 Creatinine 0.61 GFR Estimate >90 Calcium 9.1 Chloride 101 Glucose 92 Alkaline Phosphatase 305 (*) AST 43 ALT 125 (*) Protein Total 8.3 Albumin 4.3 Bilirubin Total <0.2 CBC WITH PLATELETS AND DIFFERENTIAL - Abnormal WBC Count 9.7 RBC Count 4.76 Hemoglobin 12.7 Hematocrit 39.8 MCV 84 MCH 26.7 MCHC 31.9 RDW 23.9 (*) Platelet Count 410 % Neutrophils 53 % Lymphocytes 39 % Monocytes 6 % Eosinophils 2 % Basophils 0 % Immature Granulocytes 0 NRBCs per 100 WBC 0 Absolute Neutrophils 5.1 Absolute Lymphocytes 3.8 Absolute Monocytes 0.6 Absolute Eosinophils 0.2 Absolute Basophils 0.0 Absolute Immature Granulocytes 0.0 Absolute NRBCs 0.0 ISTAT GASES LACTATE VENOUS POCT - Abnormal Lactic Acid POCT 1.0 Bicarbonate Venous POCT 24 O2 Sat, Venous POCT 49 (*) pCO2 Venous POCT 44 pH Venous POCT 7.34 pO2 Venous POCT 28 BLOOD CULTURE BLOOD CULTURE Emergency Department Course & Assessments: Interventions: Medications HYDROmorphone (DILAUDID) tablet 2 mg (2 mg Oral $Given 01/10/24 0113) cefTRIAXone (ROCEPHIN) 2 g vial to attach to NS 100 ml bag for ADULTS or NS 50 ml bag for PEDS (2 gIntravenous Not Given 01/10/24 0048) apixaban ANTICOAGULANT (ELIQUIS) tablet 5 mg (5 mg Oral $Given 01/10/24 0015) HYDROmorphone (DILAUDID) tablet 2 mg (2 mg Oral $Given 01/10/24 0011) sodium chloride 0.9 % infusion ( Intravenous $New Bag 01/10/24 0129) Consultations/Discussion of Management or Tests: Dr. Jones, Infectious Disease Social Determinants of Health affecting care: None Disposition: The patient was admitted to the hospital under the care of Dr. Mckeon. Impression & Plan Medical Decision Making: Sandi Lopez is a 38 year old female who presents to the emergency department with a positive blood culture. She was evaluated in the emergency department on 08 January. She had blood cultureobtained and one of the bottles is growing gram-positive bacilli. Unclear if this is a contaminant.Her white blood cell count and lactic acid level was eventually able to be obtained here after muchattempts to gain access. Repeat blood cultures were obtained as well. White blood cell count and lactic acid levels are normal. She is given oral Dilaudid as well as her apixaban. She is given TKO fluids. Discussed with infectious disease to determine if this is possibly able to be ruled a contamina nt right away. Unfortunately unable to rule out contaminant yet. Will admit patient observation forfurther evaluation and treatment. Will not provide additional antibiotics until more information isknown. Patient discussed with the hospitalist Dr. Brian Messina who agreed to accept the patient asan observation admission. Diagnosis: ICD-10-CM 1. Positive blood culture R78.81 Manpreet Marin MD 01/10/2024 Manpreet Marin MD [place], Aaron Joseph, MD 01/10/24 0225 SH MENDER documented in this encounter Miscellaneous Notes * Pharmacy-Admission Medication History - Tiffanie Acharya [facility] - 01/10/2024 8:34 AM CST Pharmacist Admission Medication History Admission medication history is complete. The information provided in this note is only as accurateas the sources available at the time of the update. Information Source(s): Patient and CareEverywhere/SureScripts via in-person Pertinent Information: pt is NOT taking rivaroxaban. It was only ordered when she had problems withinsurance covering apixaban, but apixaban is now covered. Pt states that she crushed protonix. I explained that protonix is not effective if crushed because the acidic environment of the stomach inactivates it. That's why it's enteric coated, so it can pass through the stomach into the intestine, where it can be absorbed. I suggested that she take omeprazole capsules instead. Capsules can be opened and the enteric coated beads swallowed (if NOT chewed/crushed). The beads will pass through the stomach into the intestines to be absorbed. Changes made to STRINGER MACHINE TENDER medication list: Added: PRN tylenol Deleted: cefpodoxime, rivaroxaban (marked not taking), bacitracin Changed: Multivitamin to [place] with iron. Pt didn't tolerate the other vitamins. Allergies reviewed with patient and updates made in EHR: yes Medication History Completed By: Tiffanie Acharya RPH 01/10/2024 8:34 AM STRINGER MACHINE TENDER Med List Medication Sig Last Dose apixaban ANTICOAGULANT (ELIQUIS) 5 MG tablet Take 1 tablet (5 mg) by mouth 2 times daily 01/09/2024 at am childrens multivitamin w/iron (FLINTSTONES COMPLETE) chewable tablet Take 1 chew tab by mouth daily01/09/2024 at am Cholecalciferol (VITAMIN D3) 50 MCG (2000 UT) CAPS Take 1 capsule by mouth daily 01/09/2024 at am folic acid (FOLVITE) 1 MG tablet Take 1 mg by mouth daily 01/09/2024 at am gabapentin (NEURONTIN) 800 MG tablet Take 800 mg by mouth 3 times daily 01/09/2024 at afternoon HYDROmorphone (DILAUDID) 4 MG tablet Take 0.5-1 tablets (2-4 mg) by mouth every 4 hours as needed for severe pain 01/09/2024 LORazepam (ATIVAN) 1 MG tablet Take 1 mg by mouth every 6 hours as needed for anxiety 01/09/2024 pantoprazole (PROTONIX) 40 MG EC tablet Take 1 tablet (40 mg) by mouth 2 times daily (before meals)01/09/2024 at am phenazopyridine (PYRIDIUM) 100 MG tablet Take 1 tablet (100 mg) by mouth 3 times daily as needed for urinary tract discomfort 01/09/2024 at am zolpidem (AMBIEN) 10 MG tablet Take 10 mg by mouth At Bedtime prn SH MENDER documented in this encounter Plan of Treatment Upcoming Encounters Date Type Department Care Team (Late st Contact Info) Description 05/09/2024 10:00 AM CDT Office Visit [facility] [address] [facility] [place] [phone] [place] [address] [address] [address] documented as of this encounter Procedures Procedure Name Priority Date/Time Associated Diagnosis Comments ISTAT GASES LACTATE VENOUS POCT STAT 01/10/2024 1:57 AM FINISH MENDER CBC WITH PLATELETS AND DIFFERENTIAL STAT 01/10/2024 1:54 AM FINISH MENDER CBC WITH PLATELETS & DIFFERENTIAL STAT 01/10/2024 1:54 AM FINISH MENDER COMPREHENSIVE METABOLIC PANEL STAT 01/10/2024 1:54 AM FINISH MENDER BLOOD CULTURE STAT 01/10/2024 1:54 AM FINISH MENDER BLOOD CULTURE STAT 01/10/2024 1:54 AM FINISH MENDER documented in this encounter Results * (ABNORMAL) iStat Gases (lactate) venous, POCT (01/10/2024 1:57 AM FINISH MENDER) [facility] Lactic Acid POCT 1.0 <=2.0 mmol/L 01/10/2024 2:01 AM [facility] POC Bicarbonate Venous POCT 24 21 - 28 mmol/L 01/10/2024 2:01 AM FINISH MENDER LABORATORY POC O2 Sat, Venous POCT 49(L) 70 - 75 % 01/10/2024 2:01 AM FINISH MENDER LABORATORY POC pCO2 Venous POCT 44 40 - 50 mm Hg 01/10/2024 2:01 AM [facility] POC pH Venous POCT 7.34 7.32 - 7.43 01/10/2024 2:01 AM [facility] POC pO2 Venous POCT 28 25 - 47 mm Hg 01/10/2024 2:01 AM [facility] POC Blood, venous BLOOD SPECIMEN / Unknown 01/10/2024 1:57 AM FINISH MENDER 01/10/2024 2:01 AM FINISH MENDER Manpreet Marin MD LAB - [facility] POCT LABORATORY POC [facility] [address] floor, [address] [place] [address], [facility] [phone] * (ABNORMAL) CBC with platelets and differential (01/10/2024 1:54 AM FINISH MENDER) WBC Count 9.7 4.0 - 11.0 10e3/uL 01/10/2024 2:04 AM [facility] RBC Count 4.76 3.80 - 5.20 10e6/uL 01/10/2024 2:04 AM [facility] Hemoglobin 12.7 11.7 - 15.7 g/dL 01/10/2024 2:04 AM [facility] Hematocrit 39.8 35.0 - 47.0 % 01/10/2024 2:04 AM [facility] MCV 84 78 - 100 fL 01/10/2024 2:04 AM [facility] MCH 26.7 26.5 - 33.0 pg 01/10/2024 2:04 AM [facility] MCHC 31.9 31.5 - 36.5 g/dL 01/10/2024 2:04 AM [facility] RDW 23.9(H) 10.0 - 15.0 % 01/10/2024 2:04 AM [facility] Platelet Count 410 150 - 450 10e3/uL 01/10/2024 2:04 AM [facility] % Neutrophils 53 % 01/10/2024 2:04 AM [facility] % Lymphocytes 39 % 01/10/2024 2:04 AM [facility] % Monocytes 6 % 01/10/2024 2:04 AM [facility] % Eosinophils 2 % 01/10/2024 2:04 AM [facility] % Basophils 0 % 01/10/2024 2:04 AM [facility] % Immature Granulocytes 0 % 01/10/2024 2:04 AM [facility] NRBCs per 100 WBC 0 <1 /100 024 2:04 AM [facility] Absolute Neutrophils 5.1 1.6 - 8.3 10e3/uL 01/10/2024 2:04 AM [facility]ER LABORATORY Absolute Lymphocytes 3.8 0.8 - 5.3 10e3/uL 01/10/2024 2:04 AM [facility] LABORATORY Absolute Monocytes 0.6 0.0 - 1.3 10e3/uL 01/10/2024 2:04 AM [facility]ENDER LABORATORY Absolute Eosinophils 0.2 0.0 - 0.7 10e3/uL 01/10/2024 2:04 AM [facility] LABORATORY Absolute Basophils 0.0 0.0 - 0.2 10e3/uL 01/10/2024 2:04 AM [facility] LABORATORY Absolute Immature Granulocytes 0.0 <=0.4 10e3/uL 01/10/2024 2:04 AM [facility]ER LABORATORY Absolute NRBCs 0.0 10e3/uL 01/10/2024 2:04 AM FINISH MENDER LABORATORY Blood BLOOD SPECIMEN / Unknown Venipuncture / Unknown 01/10/2024 1:54 AM FINISH MENDER 01/10/2024 1:59 AM FINISH MENDER Manpreet Marin MD LAB - BLOOD ORDER [facility] [address], [address] [place] [address], [place] [phone] * Blood Culture Peripheral Blood (01/10/2024 1:54 AM FINISH MENDER) Culture No Growth 01/15/2024 4:18 AM FINISH MENDER [facility] Blood BLOOD SPECIMEN / Unknown Venipuncture / Unknown 01/10/2024 1:54 AM FINISH MENDER 01/10/2024 1:59 AM FINISH MENDER Manpreet Mairn MD LAB - MICRO GENER AL ORDERABLES [facility] Inf. Diseases Diag. Lab [address], [address] [place] [address], [place] [phone] * Blood Culture Peripheral Blood (01/10/2024 1:54 AM FINISH MENDER) [facility] Culture No Growth 01/15/2024 4:18 AM FINISH MENDER [facility] Blood BLOOD SPECIMEN / Unknown Venipuncture / Unknown 01/10/2024 1:54 AM FINISH MENDER 01/10/2024 1:[address] [facility] Manpreet Marin MD LAB - MICRO GENER AL ORDERABLES [facility] Inf. Diseases Diag. Lab [address], [address] [place] [address], [facility] [phone] * (ABNORMAL) Comprehensive metabolic panel (01/10/2024 1:54 AM FINISH MENDER) [facility] Sodium 137 135 - 145 mmol/L 01/10/2024 2:22 AM [facility] Comment:Reference intervals for this test were updated on 08/24/2023 to more accurately reflect our healthy population. There may be differences in the flagging of prior results with similar values performed with this method. Interpretation of those prior results can be made in the context of the updated reference intervals. Potassium 4.3 3.4 - 5.3 mmol/L 01/10/2024 2:22 AM [facility] Carbon Dioxide (CO2) 24 22 - 29 mmol/L 01/10/2024 2:22 AM [facility] Anion Gap 12 7 - 15 mmol/L 01/10/2024 2:22 AM [facility] Urea Nitrogen 7.6 6.0 - 20.0 mg/dL 01/10/2024 2:22 AM [facility] Creatinine 0.61 0.51 - 0.95 mg/dL 01/10/2024 2:22 AM [facility] GFR Estimate >90 >60 mL/min/1. 73m2 01/10/2024 2:22 AM [facility] Calcium 9.1 8.6 - 10.0 mg/dL 01/10/2024 2:22 AM [facility] Chloride 101 98 - 107 mmol/L 01/10/2024 2:22 AM [facility] Glucose 92 70 - 99 mg/dL 01/10/2024 2:22 AM [facility] Alkaline Phosphatase 305(H) 40 - 150 U/L 01/10/2024 2:22 AM [facility] Comment:Reference intervals for this test were updated on 10/12/2023 to more accurately reflect our healthy population. There may be differences in the flagging of prior results with similar values performed with this method. Interpretation of those prior results can be made in the context of the updated reference intervals. AST 43 0 - 45 U/L 01/10/2024 2:22 AM [facility] Comment:Reference intervals for this test were updated on 05/10/2023 to more accurately reflect our healthy population. There may be differences in the flagging of prior results with similar values performed with this method. Interpretation of those prior results can be made in the context of the updated reference intervals. ALT 125(H) 0 - 50 U/L 01/10/2024 2:22 AM [facility] Comment:Reference intervals for this test were updated on 05/10/2023 to more accurately reflect our healthy population. There may be differences in the flagging of prior results with similar values performed with this method. Interpretation of those prior results can be made in the context of the updated reference intervals. Protein Total 8.3 6.4 - 8.3 g/dL 01/10/2024 2:22 AM [facility] Albumin 4.3 3.5 - 5.2 g/dL 01/10/2024 2:22 AM [facility] Bilirubin Total <0.2 <=1.2 mg/dL 01/10/2024 2:22 AM [facility] Blood BLOOD SPECIMEN / Unknown Venipuncture / Unknown 01/10/2024 1:54 AM FINISH MENDER 01/10/2024 1:[address] [facility] Manpreet Marin MD LAB - BLOOD ORDER [facility] [address], [address] [place] [address], [facility] [phone] documented in this encounter Visit Diagnoses Diagnosis Positive blood culture- Primary Bacteremia Positive blood culture Bacteremia documented in this encounter Admitting Diagnoses Diagnosis Positive blood culture Bacteremia documented in this encounter Administered Medications Inactive Administered Medications - up to 3 most recent administrations Medication Order MAR Action Action Date Dose Rate Site acetaminophen (TYLENOL) Suppository 650 mg 650 mg, Rectal, EVERY 4 HOURS PRN, mild pain, other, and adjunct with moderate or severe pain or per patient request, Starting on Wed01/10/24 at 0424, Alternate with ibuprofen if ordered. Maximum acetaminophen dose from all sources = 75 mg/kg/day not to exceed 4 grams/day. acetaminophen (TYLENOL) tablet 650 mg 650 mg, Oral, EVERY 4 HOURS PRN, mild pain, other, and adjunct with moderate or severe pain or per patient request, Starting on Wed01/10/24 at 0424, Alternate with ibuprofen if ordered. Maximum acetaminophen dose from all sources = 75 mg/kg/day not to exceed 4 grams/day. $Given 01/10/2024 5:48 PM FINISH MENDER 650 mg $Given 01/10/2024 6:07 AM FINISH MENDER 650 mg apixaban ANTICOAGULANT (ELIQUIS) tablet 5 mg 5 mg, Oral, ONCE, On Wed01/10/24 at 0005, For 1 dose, Indications: DVT-PE Treatment $Given 01/10/2024 12:15 AM FINISH MENDER 5 mg apixaban ANTICOAGULANT (ELIQUIS) tablet 5 mg 5 mg, Oral, 2 TIMES DAILY, First dose on Wed01/10/24 at 0900, Indications: DVT-PE Treatment $Given 01/10/2024 8:03 AM FINISH MENDER 5 mg diphenhydrAMINE (BENADRYL) capsule 25 mg 25 mg, Oral, EVERY 6 HOURS PRN, nausea, Starting on Wed01/10/24 at 0424 $Given 01/10/2024 12:12 PM FINISH MENDER 25 mg diphenhydrAMINE (BENADRYL) injection 50 mg 50 mg, Intravenous, ONCE, On Wed01/10/24 at 0250, For 1 dose, Please dilute in 200 ml NS Protect from light. $Given 01/10/2024 3:02 AM FINISH MENDER 50 mg hydrALAZINE (APRESOLINE) injection 10 mg 10 mg, Intravenous, EVERY 4 HOURS PRN, high blood pressure, for systolic BP greater than 180 mmHg, Administer over 1 Minutes, Starting on Wed01/10/24 at 0424 hydrALAZINE (APRESOLINE) tablet 10 mg 10 mg, Oral, EVERY 4 HOURS PRN, high blood pressure, for systolic BP greater than 180 mmHg, Starting on Wed01/10/24 at 0424 HYDROmorphone (DILAUDID) tablet 2 mg 2 mg, Oral, ONCE, On Wed01/10/24 at 0005, For 1 dose $Given 01/10/2024 12:11 AM FINISH MENDER 2 mg HYDROmorphone (DILAUDID) tablet 2 mg 2 mg, Oral, EVERY 3 HOURS PRN, moderate pain, Starting on Wed01/10/24 at 0103 $Given 01/10/2024 4:06 AM FINISH MENDER 2 mg $Given 01/10/2024 1:13 AM FINISH MENDER 2 mg HYDROmorphone (DILAUDID) tablet 2 mg 2 mg, Oral, EVERY 4 HOURS PRN, moderate pain, IF pain not managed with non-pharmacological and non-opioid interventions, Starting on Wed01/10/24 at 0425, May use concomitant with non-opioid analgesics. $Given 01/10/2024 4:48 AM FINISH MENDER 2 mg HYDROmorphone (DILAUDID) tablet 4 mg 4 mg, Oral, EVERY 4 HOURS PRN, severe pain, IF pain not managed with non-pharmacological and non-opioid interventions, Starting on Wed01/10/24 at 0425, May use concomitant with non-opioid analgesics. $Given 01/10/2024 5:48 PM FINISH MENDER 4 mg $Given 01/10/2024 1:43 PM FINISH MENDER 4 mg $Given 01/10/2024 8:52 AM FINISH MENDER 4 mg LORazepam (ATIVAN) injection 0.5 mg 0.5 mg, Intravenous, ONCE, On Wed01/10/24 at 0700, For 1 dose, This drug may cause significant respiratory depression. Monitor respiratory status and vital signs carefully for 1 hour after each dose. $Given 01/10/2024 8:00 AM FINISH MENDER 0.5 mg naloxone (NARCAN) injection 0.2 mg 0.2 mg, Intravenous, EVERY 2 MIN PRN, opioid reversal, Starting on Wed01/10/24 at 0501, Administer intravenous route when available and notify [...] 2 MIN PRN, opioid reversal, Starting on Wed01/10/24 at 0501, Administer intramuscular if an intravenous route is [...] 2 MIN PRN, opioid reversal, Starting on Wed01/10/24 at 0501, Administer intravenous route when available and notify [...] 2 MIN PRN, opioid reversal, Starting on Wed01/10/24 at 0501, Administer intramuscular if an intravenous route is [...] have not improved after 4 naloxone doses. senna-docusate (SENOKOT-S/PERICOLACE) 8.6-50 MG per tablet 1 tablet 1 tablet, Oral, 2 TIMES DAILY PRN, constipation, Starting on Wed01/10/24 at 0424, If no bowel movement in 24 hours, [...] 2 TIMES DAILY PRN, constipation, Starting on Wed01/10/24 at 0424, IF more than 1 constipation PRN medication is ordered, administer step-cheatham as indicated, moving to the next step ONLY if prior step ineffective. Step 1: senna-docusate (SENOKOT-S; PERICOLACE) OR bisacodyl (DULCOLAX) EC tablet Step 2: polyethylene glycol (MIRALAX/GLYCOLAX) Step 3: bisacodyl (DULCOLAX) suppository Step 4: enema Hold for loose stools. sodium chloride 0.9 % infusion at 10 mL/hr, Intravenous, ONCE, 1 dose, On Wed01/10/24 at 0125 Rate/Dose Verify 01/10/2024 4:06 AM FINISH MENDER 10 mL/hr $New Bag 01/10/2024 1:29 AM FINISH MENDER 10 mL/hr documented in this encounter Active and Recently Administered Medications Times are shown in FINISH MENDER. Scheduled Medication Order 01/08/2024 01/09/2024 01/10/2024 apixaban ANTICOAGULANT (ELIQUIS) tablet 5 mg (COMPLETED) 5 mg, Oral, ONCE, On Wed01/10/24 at 0005, For 1 dose, Indications: DVT-PE Treatment 0015 ($Given - Provi rosita: Kamryn Guerin RN) apixaban ANTICOAGULANT (ELIQUIS) tablet 5 mg 5 mg, Oral, 2 TIMES DAILY, First dose on Wed01/10/24 at 0900, Indications: DVT-PE Treatment 0803 ($Given - Provi rosita: Vero Rivera RN) diphenhydrAMINE (BENADRYL) injection 50 mg (COMPLETED) 50 mg, Intravenous, ONCE, On Wed01/10/24 at 0250, For 1 dose, Please dilute in 200 ml NS Protect from light. 0302 ($Given - Provi rosita: Kamryn Guerin RN) HYDROmorphone (DILAUDID) tablet 2 mg (COMPLETED) 2 mg, Oral, ONCE, On Wed01/10/24 at 0005, For 1 dose 0011 ($Given - Provi rosita: Kamryn Guerin RN) LORazepam (ATIVAN) injection 0.5 mg (COMPLETED) 0.5 mg, Intravenous, ONCE, On Wed01/10/24 at 0700, For 1 dose, This drug may cause significant respiratory depression. Monitor respiratory status and vital signs carefully for 1 hour after each dose. 0800 ($Given - Provi rosita: Vero Rivera RN - Comment: Medication was wasted; the witness was the charge nurse, Rach. 0.75 ml was wasted=1.5 mg) sodium chloride 0.9 % infusion (COMPLETED) at 10 mL/hr, Intravenous, ONCE, 1 dose, On Wed01/10/24 at 0125 0129 ($New Bag - Pro vider: Kamryn Guerin RN)0406 (Rate/Dose Verify - Provider: Kamryn Guerin RN) PRN Medication Order 01/08/2024 01/09/2024 01/10/2024 acetaminophen (TYLENOL) Suppository 650 mg(Linked Group 1) 650 mg, Rectal, EVERY 4 HOURS PRN, mild pain, other, and adjunct with moderate or severe pain or per patient request, Starting on Wed01/10/24 at 0424, Alternate with ibuprofen if ordered. Maximum acetaminophen dose from all sources = 75 mg/kg/day not to exceed 4 grams/day. 0607 (See Alternativ e - Provider: Nallely Nuñez RN)1023 (See Alternative - Provider: Vero Rivera RN)1748 (See Alternative - Provider: Vero Rivera RN) acetaminophen (TYLENOL) tablet 650 mg(Linked Group 1) 650 mg, Oral, EVERY 4 HOURS PRN, mild pain, other, and adjunct with moderate or severe pain or per patient request, Starting on Wed01/10/24 at 0424, Alternate with ibuprofen if ordered. Maximum acetaminophen dose from all sources = 75 mg/kg/day not to exceed 4 grams/day. 0607 ($Given - Provi rosita: Nallely Nuñez RN)1023 (Not Given - Provider: Vero Rivera RN - Reason: Patient/family refused)1748 ($Given - Provider: Vero Rivera RN) diphenhydrAMINE (BENADRYL) capsule 25 mg 25 mg, Oral, EVERY 6 HOURS PRN, nausea, Starting on Wed01/10/24 at 0424 1023 (Not Given - Pr ovider: Vero Rivera RN - Reason: Patient/family refused)1212 ($Given - Provider: Vero Rivera RN) hydrALAZINE (APRESOLINE) injection 10 mg(Linked Group 2) 10 mg, Intravenous, EVERY 4 HOURS PRN, high blood pressure, for systolic BP greater than 180 mmHg, Administer over 1 Minutes, Starting on Wed01/10/24 at 0424 hydrALAZINE (APRESOLINE) tablet 10 mg(Linked Group 2) 10 mg, Oral, EVERY 4 HOURS PRN, high blood pressure, for systolic BP greater than 180 mmHg, Starting on Wed01/10/24 at 0424 HYDROmorphone (DILAUDID) tablet 2 mg (CANCELED) 2 mg, Oral, EVERY 3 HOURS PRN, moderate pain, Starting on Wed01/10/24 at 0103 0113 ($Given - Provi rosita: Kamryn Guerin RN)0406 ($Given - Provider: Kamryn Guerin RN)0503 (Canceled Entry - Provider: Nallely Nuñez RN) HYDROmorphone (DILAUDID) tablet 2 mg 2 mg, Oral, EVERY 4 HOURS PRN, moderate pain, IF pain not managed with non-pharmacological and non-opioid interventions, Starting on Wed01/10/24 at 0425, May use concomitant with non-opioid analgesics. 0448 ($Given - Provi rosita: Nallely Nuñez RN - Comment: okay to give per Dr Mckeon. Next dose 4h from this dose)0853 (Not Given - Provider: Vero Rivera RN - Reason: Other - Comment: I administered 4 mg. I removed 2 mg X 2 times.) HYDROmorphone (DILAUDID) tablet 4 mg 4 mg, Oral, EVERY 4 HOURS PRN, severe pain, IF pain not managed with non-pharmacological and non-opioid interventions, Starting on Wed01/10/24 at 0425, May use concomitant with non-opioid analgesics. 0852 ($Given - Provi rosita: Vero Rivera RN)1343 ($Given - Provider: Vero Rivera RN)1748 ($Given - Provider: Vero Rivera RN) LORazepam (ATIVAN) tablet 1 mg 1 mg, Oral, EVERY 6 HOURS PRN, anxiety, Starting on Wed01/10/24 at 0508 naloxone (NARCAN) injection 0.2 mg(Linked Group 3) 0.2 mg, Intravenous, EVERY 2 MIN PRN, opioid reversal, Starting on Wed01/10/24 at 0501, Administer intravenous route when available and notify [...] doses. naloxone (NARCAN) injection 0.2 mg(Linked Group 3) 0.2 mg, Intramuscular, EVERY 2 MIN PRN, opioid reversal, Starting on Wed01/10/24 at 0501, Administer intramuscular if an intravenous route is [...] doses. naloxone (NARCAN) injection 0.4 mg(Linked Group 3) 0.4 mg, Intravenous, EVERY 2 MIN PRN, opioid reversal, Starting on Wed01/10/24 at 0501, Administer intravenous route when available and notify [...] doses. naloxone (NARCAN) injection 0.4 mg(Linked Group 3) 0.4 mg, Intramuscular, EVERY 2 MIN PRN, opioid reversal, Starting on Wed01/10/24 at 0501, Administer intramuscular if an intravenous route is [...] have not improved after 4 naloxone doses. Patient is already receiving anticoagulation with heparin, enoxaparin (LOVENOX), warfarin (COUMADIN) or other anticoagulant medication CONTINUOUS PRN, Starting on Wed01/10/24 at 0425, Until Wed01/10/24 at 2038 polyethylene glycol (MIRALAX) Packet 17 g 17 g, Oral, 2 TIMES DAILY PRN, constipation, Starting on Wed01/10/24 at 0424, IF more than 1 constipation PRN medication [...] 8.6-50 MG per tablet 1 tablet(Linked Group 4) 1 tablet, Oral, 2 TIMES DAILY PRN, constipation, Starting on Wed01/10/24 at 0424, If no bowel movement in 24 hours, [...] 8.6-50 MG per tablet 2 tablet(Linked Group 4) 2 tablet, Oral, 2 TIMES DAILY PRN, constipation, Starting on Wed01/10/24 at 0424, IF more than 1 constipation PRN medication is ordered, administer step-cheatham as indicated, moving to the next step ONLY if prior step ineffective. Step 1: senna-docusate (SENOKOT-S; PERICOLACE) OR bisacodyl (DULCOLAX) EC tablet Step 2: polyethylene glycol (MIRALAX/GLYCOLAX) Step 3: bisacodyl (DULCOLAX) suppository Step 4: enema Hold for loose stools. Linked Groups Order Group 1: acetaminophen (TYLENOL) tablet 650 mgJump to med 650 mg, Oral, EVERY 4 HOURS PRN, mild pain, other, and adjunct with moderate or severe pain or per patient request, Starting on Wed01/10/24 at 0424, Alternate with ibuprofen if ordered. Maximum acetaminophen dose from all sources = 75 mg/kg/day not to exceed 4 grams/day. Or acetaminophen (TYLENOL) Suppository 650 mgJump to med 650 mg, Rectal, EVERY 4 HOURS PRN, mild pain, other, and adjunct with moderate or severe pain or per patient request, Starting on Wed01/10/24 at 0424, Alternate with ibuprofen if ordered. Maximum acetaminophen dose from all sources = 75 mg/kg/day not to exceed 4 grams/day. Group 2: hydrALAZINE (APRESOLINE) tablet 10 mgJump to med 10 mg, Oral, EVERY 4 HOURS PRN, high blood pressure, for systolic BP greater than 180 mmHg, Starting on Wed01/10/24 at 0424 Or hydrALAZINE (APRESOLINE) injection 10 mgJump to med 10 mg, Intravenous, EVERY 4 HOURS PRN, high blood pressure, for systolic BP greater than 180 mmHg, Administer over 1 Minutes, Starting on Wed01/10/24 at 0424 Group 3: naloxone (NARCAN) injection 0.2 mgJump to med 0.2 mg, Intravenous, EVERY 2 MIN PRN, opioid reversal, Starting on Wed01/10/24 at 0501, Administer intravenous route when available and notify [...] 2 MIN PRN, opioid reversal, Starting on Wed01/10/24 at 0501, Administer intravenous route when available and notify [...] 2 MIN PRN, opioid reversal, Starting on Wed01/10/24 at 0501, Administer intramuscular if an intravenous route is [...] 2 MIN PRN, opioid reversal, Starting on Wed01/10/24 at 0501, Administer intramuscular if an intravenous route is [...] not improved after 4 naloxone doses. Group 4: senna-docusate (SENOKOT-S/PERICOLACE) 8.6-50 MG per tablet 1 tabletJump to med 1 tablet, Oral, 2 TIMES DAILY PRN, constipation, Starting on Wed01/10/24 at 0424, If no bowel movement in 24 hours, [...] 2 TIMES DAILY PRN, constipation, Starting on Wed01/10/24 at 0424, IF more than 1 constipation PRN medication [...] documented as of this encounter Care Teams Heddle Machine Operator Relationship Specialty Start [place] [address] [place] [address] PCP - General Family Medicine 04/22/23 [place] [address] [place] [address] Assigned Pain Medication Provider 12/07/22 [place] [address] [place] [address] Assigned PCP 01/23/23 [place] [address] [place] [address] Assigned Musculoskeletal Provider 01/23/23 Gregorio Dalton PA-C [address] [address] Assigned Surgical Provider 05/22/23 Kingsley Garcia MD [address] [address] Assigned Heart and Vascular Provider 08/07/23 [place] [address] [place] [address] Family Medicine 09/10/23 Master Shea PA-C [address] [place] [address] Physician Mesmerist Gastroenterology 09/10/23 Allyssa Justice MD [facility] [address] [place] [address] [place] [address] Hematology & Oncology 12/10/23 Genaro Christian MD [address] [place] [address] Cardiovascular Disease 12/22/23 Master Shea PA-C [address] [facility] [place] [address] Assigned Gastroenterology Provider 12/23/23 documented as of this encounter
--- OUTSIDE RECORDS SUMMARY | 2024-03-25 18:19 | XMS_ITS | Encounter Summary ---
Author Name Unknown Organization [place] Address [address] [facility] [place] [address] Care Team Providers Care Printing Machine Operator Tape Rules Name Role Phone Segundo Mcclelland MD Unavailable [phone] Segundo Mcclelland MD Unavailable [phone] Qamar Jackson MD Unavailable Segundo Mcclelland MD Primary Care Provider + Gregorio Dalton PA-C Unavailable Kingsley Garcia MD Unavailable [phone] Segundo Mcclelland MD Unavailable Master Shea PA-C Unavailable Allyssa Justice MD Unavailable [phone] Genaro Christian MD Unavailable [phone] Master Shea PA-C Unavailable Reason for Visit * Reason Onset Date Comments Forms 01/10/2024 [facility] - Specialt y Referral Encounter Details Date Type Department Care Team (Late st Contact Info) Description 01/10/2024 Telephone [facility] [address] [place] [address] [place] [address] [place] [address] Forms ([facility] - Specialty Referral) Social History Tobacco Use Types Packs/Day Years [...] * Telephone Encounter - Kait Rao - 01/12/2024 7:22 AM CST Faxed. Kait Winters Lead Tube Making Machine Operator [facility] [place] ILE PROC TECH * Telephone Encounter - Segundo Mcclelland MD - 01/11/2024 5:27 PM STERILE PROC TECH Signed Segundo Mcclelland MD ILE PROC TECH * Telephone Encounter - Kait Rao - 01/10/2024 9:17 AM CST Rec'd Specialty Referral from [facility]. Placed in PCP basket for review and signature. . 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 Assessment Noted Time PHQ-9 Depression Total Score: 3 05/27/20 5:00 PM CDT documented as of this encounter Care Teams Printing Machine Operator Tape Rules Relationship Specialty Start [place] [address] [address] [address] PCP - General Family Medicine 04/22/23 [place] [address] [address] [address] Assigned Pain Medication Provider 12/07/22 [place] [address] [address] Assigned PCP 01/23/23 [place] [address] [place] [address] [place] [address] Assigned Musculoskeletal Provider 01/23/23 Gregorio Dalton PA-C [address] [address] Assigned Surgical Provider 05/22/23 Kingsley Garcia MD [address] [place] [address]26[address] Assigned Heart and Vascular Provider 08/07/23 [place] [address] [address] [address] Family Medicine 09/10/23 Master Shea PA-C [address] [place] [address] Physician Supervisor Endless Track Vehicle Gastroenterology 09/10/23 Allyssa Justice MD [facility] [address] [place] [address] [place] [place] [address] Hematology & Oncology 12/10/23 Genaro Christian MD [address] [place] [address] [id number] Cardiovascular Disease 12/22/23 Master Shea PA-C [address] [place] [address] Assigned Gastroenterology Provider 12/23/23 documented as of this encounter
--- OUTSIDE RECORDS SUMMARY | 2024-03-25 18:19 | XMS_ITS | Encounter Summary ---
Author Name Unknown Organization [place] Address [address] [facility] [place] [address] Care Team Providers Care Storekeeper Engineering Name Role Phone Segundo Mcclelland MD Unavailable Segundo Mcclelland MD Unavailable [phone] Qamar Jackson MD Unavailable Segundo Mcclelland MD Primary Care Provider + Gregorio Dalton PA-C Unavailable Kingsley Garcia MD Unavailable [phone] Segundo Mcclelland MD Unavailable Master Shea PA-C Unavailable Allyssa Justice MD Unavailable [phone] Genaro Christian MD Unavailable Master Shea PA-C Unavailable Encounter Details Date Type Department Care Team (Late st Contact Info) Description 01/08/2024 [facility] [address] [place] [address] [place] [address] [place] [address] Social History Tobacco Use Types [...] Telephone Encounter - Segundo Mcclelland MD - 01/10/2024 1:40 PM LENS GRINDER AND POLISHER Pt currently admitted. Segundo Mcclelland MD GRINDER AND POLISHER * Telephone Encounter - Alexandria Forrest RN - 01/10/2024 8:54 AM CST Routed to Dr Mcclelland, please see and advise. 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 Assessment Noted Time PHQ-9 Depression Total Score: 3 05/27/20 5:00 PM CDT documented as of this encounter Care Teams Storekeeper Engineering Relationship Specialty Start [place] [address] [place] [address] PCP - General Family Medicine 04/22/23 [place] [address] [address] [address] Assigned Pain Medication Provider 12/07/22 [place] [address] [address] [address] Assigned PCP 01/23/23 [place] [address] [place] [address] [place] [address] Assigned Musculoskeletal Provider 01/23/23 Gregorio Dalton PA-C [address] [address] Assigned Surgical Provider 05/22/23 Kingsley Garcia MD [address] [place] [address] Assigned Heart and Vascular Provider 08/07/23 [place] [address] [address] [address] Family Medicine 09/10/23 Master Shea PA-C [address] [place] [address] Engineer Gastroenterology 09/10/23 Allyssa Justice MD [facility] [address] [place] [address] Hematology & Oncology 12/10/23 Genaro Christian MD [address] [place] [address] Cardiovascular Disease 12/22/23 Master Shea PA-C [address] [place] [address] Assigned Gastroenterology Provider 12/23/23 documented as of this encounter
--- OUTSIDE RECORDS SUMMARY | 2024-03-25 18:19 | XMS_ITS | Encounter Summary ---
Author Name Unknown Organization [place] Address [facility] [place] [address] Care Team Providers Care Wax Pattern Repairer Name Role Phone Segundo Mcclelland MD Unavailable [phone] Segundo Mcclelland MD Unavailable [phone] Qamar Jackson MD Unavailable Segundo Mcclelland MD Primary Care Provider + Gregorio Dalton PA-C Unavailable [phone] Kingsley Garcia MD Unavailable [phone] Segundo Mcclelland MD Unavailable [phone] Master Shea PA-C Unavailable Allyssa Justice MD Unavailable [phone] Genaro Christian MD Unavailable [phone] Master Shea PA-C Unavailable Encounter Details Date Type Department Care Team (Latest Contact Info) Description 01/09/2024 Travel Social History Tobacco Use Types Packs/Day [...] CDT Office Visit [facility] [address] [facility] [place] [address] [place] [address] [place] [id number] documented as of this encounter Visit Diagnoses Not on file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 Assessment Noted Time PHQ-9 Depression Total Score: 3 05/27/20 23 5:00 PM CDT documented as of this encounter Care Teams Wax Pattern Repairer Relationship Specialty Start [place] [address] [place] [id number] PCP - General Family Medicine 04/22/23 [place] [address] [place] [address] Assigned Pain Medication Provider 12/07/22 [place] [address] [place] [address] Assigned PCP 01/23/23 [place] [address] [place] [address] Assigned Musculoskeletal Provider 01/23/23 Gregorio Dalton PA-C [address] [place] [address] Assigned Surgical Provider 05/22/23 Kingsley Garcia MD [address] [place] [address] Assigned Heart and Vascular Provider 08/07/23 [place] [address] [place] [address] Family Medicine 09/10/23 Master Shea PA-C [address] [place] [address] Physician Reconciler Gastroenterology 09/10/23 Allyssa Justice MD [facility] [address] [place] [address] Hematology & Oncology 12/10/23 Genaro Christian MD [address] [place] [address] Cardiovascular Disease 12/22/23 Master Shea PA-C [address] [place] [address] Assigned Gastroenterology Provider 12/23/23 documented as of this encounter
--- OUTSIDE RECORDS SUMMARY | 2024-03-25 18:19 | XMS_ITS | Encounter Summary ---
Author Name Unknown Organization [place] Address [facility] [place] [address] Care Team Providers Care Pharmaceutical Compounding Supervisor Name Role Phone Segundo Mcclelland MD Unavailable [phone] Segundo Mcclelland MD Unavailable [phone] Qamar Jackson MD Unavailable Segundo Mcclelland MD Primary Care Provider + Gregorio Dalton PA-C Unavailable [phone] Kingsley Garcia MD Unavailable [phone] Segundo Mcclelland MD Unavailable Master Shea PA-C Unavailable Allyssa Justice MD Unavailable [phone] Genaro Christian MD Unavailable Master Shea PA-C Unavailable Reason for Visit * Reason Comments Flank Pain Encounter Details Date Type Department Care Team ([facility] st Contact Info) Description 01/08/2024 3:19 AM BRAIDING OPERATOR - 01/08/2024 9:25 AM BRAIDING OPERATOR [facility] Emergency Dept [address] [place] [phone] Melissa Chavez MD [address] [place] [id number] Acute cystitis with hematuria; Nausea and vomiting, [...] Sign Reading Time Taken Comments Blood Pressure 102/73 01/08/2024 7:42 AM BRAIDING OPERATOR Pulse 115 01/08/2024 8:36 AM BRAIDING OPERATOR Temperature 36.9 ??C (98.5 ??F) 01/08/2024 12:[address] Respiratory Rate 18 01/08/2024 8:36 AM BRAIDING OPERATOR Oxygen Saturation 97% 01/08/2024 8:58 AM BRAIDING OPERATOR Inhaled Oxygen Concentration - - Weight - - Height - - Body Mass Index - - documented in this encounter Discharge Instructions * Discharge Instructions* Goertz, Melissa Fatmata, MD - 01/08/2024 7:21 AM BRAIDING OPERATOR Start the antibiotics for bladder infection. First dose of oral antibiotics should be Wednesday The culture is in process for this, will receive a call if the antibiotic needs to be changed I think it would be unlikely that you have bacteremia like you did before but blood culture in process Pyridium can turn your urine an orange color-do not be alarmed by this Follow up with your regular doctor DING OPERATOR documented in this encounter Medications at Time of Discharge Medication Sig Dispensed Refills Start Date End Date Cholecalciferol (VITAMIN D3) 50 MCG (1999) CAPS [...] anxiety naloxone (NARCAN) 4 MG/0.1ML nasal spray [place] 4 mg into one nostril alternating nostrils once as needed for opioid reversal 06/28/2023 zolpidem (AMBIEN) 10 MG tablet Take 10 mg by mouth At Bedtime 12/17/2022 cefpodoxime (VANTIN) 200 MG tablet Take 1 tablet (200 mg) by mouth 2 times daily 28 tablet 01/08/2024 01/10/2024 phenazopyridine (PYRIDIUM) 100 MG tablet Take 1 tablet (100 mg) by mouth 3 times daily as needed for urinary tract discomfort 9 tablet 01/08/2024 03/01/2024 apixaban ANTICOAGULANT (ELIQUIS) 5 MG tabletIndications:Mult iple [...] for severe pain 6 tablet 12/20/2023 02/03/2024 Multiple Vitamins-Iron (QC DAILY MULTIVITAMINS/IRON) TABSIndications:Morbid obesity with body mass index (BMI) of 45.0 to 49.9 in adult (H) Take 1 tablet by mouth daily 90 tablet 1 05/19/2023 01/10/2024 pantoprazole (PROTONIX) 40 MG EC tabletIndications:Jennifer roesophageal reflux disease with esophagitis, unspecified whether hemorrhage Take 1 tablet (40 mg) by mouth 2 times daily (before meals) 180 tablet 1 07/23/2023 03/06/2024 Rivaroxaban ANTICOAGULANT 15 & 20 MG TBPK Starter Therapy Pack Take 15 mg by mouth 2 times daily (with meals) for 21 days, THEN 20 mg daily with food for 9 days. 51 each 01/01/2024 01/10/2024 documented as of this encounter ED Notes * Shabana Newton RN - 01/08/2024 8:30 AM CST Pt stating she is having an allergic reaction after getting the dose of IV antibiotics. aware. Pt on monitors. HR 115, O2 97% RA DING OPERATOR * Angelica Davidson RN - 01/08/2024 12:17 AM CST Images from the original note were not included. Pt reports she was seen on Wednesday - reports left flank pain radiating to front with painful urination since. Pt has been taking tylenol suppositories for fever since Wednesday - last administered anhour ago. Pt also reports hx of POTS and that she syncopized this evening while standing in the kitchen, woke up on floor. EKG done in triage. Triage Assessment (Adult) Row Name 01/08/24 0016 Respiratory WDL Respiratory WDL WDL Cardiac WDL Cardiac WDL X reports syncopal episode this evening in her kitchen from a standing position. Cognitive/Neuro/Behavioral WDL Cognitive/Neuro/Behavioral WDL WDL DING OPERATOR * Melissa Chavez MD - 01/08/2024 12:10 AM CST History Chief Complaint: Flank Pain HPI Sandi Lopez is a 38 year old female who presented to the emergency department flank pain. Patient reports having urinary symptoms and feels that she has urinary tract infection. She reports afever at home though no fever here in the emergency department. Is having nausea and vomiting. No diarrhea. Reports passing out at home. Denies hitting her head or injuries. Independent Historian: None - Patient Only Review of External Notes: Reviewed the CT abdomen pelvis that she had done on January 05, 2024 and no ureteral stones were seen Medications: apixaban ANTICOAGULANT (ELIQUIS) 5 MG tablet bacitracin 500 UNIT/GM external ointment Cholecalciferol (VITAMIN D3) 50 MCG (1999) CAPS diphenhydrAMINE (BENADRYL) 25 MG capsule EPINEPHrine (ANY BX GENERIC EQUIV) 0.3 MG/0.3ML injection 2-pack folic acid (FOLVITE) 1 MG tablet gabapentin (NEURONTIN) 800 MG tablet HYDROmorphone (DILAUDID) 4 MG tablet LORazepam (ATIVAN) 1 MG tablet Multiple Vitamins-Iron (QC DAILY MULTIVITAMINS/IRON) TABS naloxone (NARCAN) 4 MG/0.1ML nasal spray pantoprazole (PROTONIX) 40 MG EC tablet Rivaroxaban ANTICOAGULANT 15 & 20 MG [...] Procedure: ESOPHAGOGASTRODUODENOSCOPY; Surgeon: Meg Lee MD; Location: [facility] GI; Service: ESOPHAGOSCOPY, GASTROSCOPY, DUODENOSCOPY (EGD), COMBINED N/A 02/13/2016 Procedure: ESOPHAGOGASTRODUODENOSCOPY; Surgeon: Meg Lee MD; Location: [facility] OR; Service: ESOPHAGOSCOPY, GASTROSCOPY, DUODENOSCOPY (EGD), [...] CONTROLLED EPITAXIS; Surgeon: Declan Mata MD; Location: [facility]; Service: OOPHORECTOMY Right Talar fracture lt foot surgery 10/1998 TONSILLECTOMY & ADENOIDECTOMY 1995 TRANSESOPHAGEAL ECHOCARDIOGRAM INTRAOPERATIVE N/A 09/17/2021 Procedure: ECHOCARDIOGRAM, TRANSESOPHAGEAL, INTRAOPERATIVE; Surgeon: GENERIC ANESTHESIA PROVIDER; Location: [facility] OR TUBAL LIGATION Physical Exam Patient Vitals for the past 24 hrs: BP Temp Temp src Pulse Resp SpO2 01/08/24 0744 -- -- -- -- -- 98 % 01/08/24 0742 102/73 -- -- 91 -- -- 01/08/24 0015 118/73 98.5 ??F (36.9 ??C) Temporal 94 16 97 % Physical Exam General: Lying on her side Eyes: The pupils are equal and round Conjunctivae and sclerae are normal ENT: Atraumatic face Neck: Normal range of motion CV: Regular rate, regular rhythm Skin warm and well perfused Resp: Non labored breathing on room air No tachypnea No cough heard GI: Abdomen is soft, there is no rigidity No distension No rebound tenderness No abdominal tenderness MS: Normal muscular tone Skin: No rash or acute skin lesions noted Neuro: Awake, alert. Speech is normal and fluent. Face is symmetric. Moves all extremities equally Psych: Normal affect. Appropriate interactions. Emergency Department Course ECG results from 01/08/24 EKG 12 lead Value Systolic Blood Pressure Diastolic Blood Pressure Ventricular Rate 105 Atrial Rate 105 CO Interval 150 QRS Duration 68 QT 332 QTc 438 P Verona 50 R AXIS 89 T Verona 34 Interpretation ECG Sinus tachycardia Possible Anterior infarct (cited on or before 04-JAN-2024) Abnormal ECG When compared with ECG of 04-JAN-2024 21:54, Questionable change in QRS axis Confirmed by GENERATED REPORT, COMPUTER ([id number]), editor magazine Sarah Levy ([id number]) on 01/08/2024 12:53:40 AM *Note: Due to a large number of results and/or encounters for the requested time period, some results have not been displayed. A complete set of results can be found in Results Review. Laboratory: Labs Ordered and Resulted from Time of ED Arrival to Time of ED Departure ROUTINE UA WITH MICROSCOPIC REFLEX TO CULTURE - Abnormal Result Value Color Urine [place] (*) Appearance Urine Slightly Cloudy (*) Glucose Urine Negative Bilirubin Urine Negative Ketones Urine Negative Specific [place] Urine 1.023 Blood Urine Large (*) pH Urine 5.5 Protein Albumin Urine 70 (*) Urobilinogen Urine Normal Nitrite Urine Negative Leukocyte Esterase Urine Trace (*) Mucus Urine Present (*) RBC Urine >182 (*) WBC Urine 59 (*) Squamous Epithelials Urine 2 (*) COMPREHENSIVE METABOLIC PANEL - Abnormal Sodium 136 Potassium 4.1 Carbon Dioxide (CO2) 24 Anion Gap 11 Urea Nitrogen 7.1 Creatinine 0.65 GFR Estimate >90 Calcium 9.6 Chloride 101 Glucose 88 Alkaline Phosphatase 276 (*) AST 36 ALT 120 (*) Protein Total 8.0 Albumin 4.1 Bilirubin Total 0.2 CBC WITH PLATELETS AND DIFFERENTIAL - Abnormal WBC Count 8.8 RBC Count 4.41 Hemoglobin 11.6 (*) Hematocrit 36.8 MCV 83 MCH 26.3 (*) MCHC 31.5 RDW 23.9 (*) Platelet Count 354 % Neutrophils 52 % Lymphocytes 39 % Monocytes 7 % Eosinophils 2 % Basophils 0 % Immature Granulocytes 0 NRBCs per 100 WBC 0 Absolute Neutrophils 4.5 Absolute Lymphocytes 3.4 Absolute Monocytes 0.6 Absolute Eosinophils 0.2 Absolute Basophils 0.0 Absolute Immature Granulocytes 0.0 Absolute NRBCs 0.0 TROPONIN T, HIGH SENSITIVITY - Normal Troponin T, High Sensitivity <6 LIPASE - Normal Lipase 35 BLOOD CULTURE BLOOD CULTURE URINE CULTURE Emergency Department Course & Assessments: Interventions: Medications HYDROmorphone (DILAUDID) tablet 4 mg (has no administration in time range) cefdinir (OMNICEF) capsule 300 mg (has no administration in time range) cefTRIAXone (ROCEPHIN) 2 g vial to attach to NS 100 ml bag for ADULTS or NS 50 ml bag for PEDS (hasno administration in time range) sodium chloride 0.9% BOLUS 1,000 mL (0 mLs Intravenous Stopped 01/08/24 0657) HYDROmorphone (DILAUDID) tablet 4 mg (4 mg Oral $Given 01/08/24 1364) diphenhydrAMINE (BENADRYL) injection 25 mg (25 mg Intravenous $Given 01/08/24 0565) LORazepam (ATIVAN) injection 0.5 mg (0.5 mg Intravenous $Given 01/08/24 0543) sodium chloride 0.9% BOLUS 1,000 mL (0 mLs Intravenous Stopped 01/08/24 0745) HYDROmorphone (PF) (DILAUDID) injection 0.5 mg (0.5 mg Intravenous $Given 01/08/24 0729) phenazopyridine (PYRIDIUM) tablet 100 mg (100 mg Oral $Given 01/08/24 0731) Social Determinants of Health affecting care: None Disposition: The patient was discharged. Impression & Plan Medical Decision Making: Sandi Lopez is a 38-year-old female who presented to the emergency department with urinary symptoms. Patient has been seen in the emergency department twice last week. Had a CT abdomen pelvisa few days ago that showed no ureteral stones. Her urine analysis appeared contaminated but not infected. Urine analysis today is abnormal. She is not on her period. I doubt she has a new ureteral stone given that she just had a CT abdomen pelvis. She has had greater than 10 CTs in the last month and I do not think a repeat CT abdomen pelvis is indicated today. Her vital signs are normal and her labs are unremarkable. Urine culture in process. Will start on oral antibiotics in concern for possible urinary tract infection. Diagnosis: ICD-10-CM 1. Acute cystitis with hematuria N30.01 2. Nausea and vomiting, unspecified vomiting type R11.2 3. Syncope, unspecified syncope type R55 01/08/2024 Melissa Chavez MD Goertz, Maria Kristine, MD 01/08/24 0800 DING OPERATOR * Juliano Cox MD - 01/08/2024 12:10 AM CST Received a call from the infectious diseases lab regarding one of the 2 blood cultures obtained on January 08, this returned as positive for gram-positive bacilli, very gene is pending at this time.I called the patient's listed phone number and there was no answer, I left a voicemail advising thepatient to call back to the emergency department for an abnormal finding that she may need to be seen for. Juliano Cox MD 01/09/242027 DING OPERATOR * Juliano Cox MD - 01/08/2024 12:10 AM CST The patient contacted the emergency department regarding the voicemail I left her earlier. I discussed the positive blood culture with the patient and have advised that she return to the emergency department for repeat cultures and assessment. Patient states understanding. Juliano Cox MD 01/09/242106 DING OPERATOR documented in this encounter Miscellaneous Notes * Result Encounter Note - Pratik Washburn RN - 01/08/2024 9:25 AM CST Admitted to [facility] on 01/10/24. DING OPERATOR documented in this encounter Plan of Treatment Upcoming Encounters Date Type Department Care Team (Late st Contact Info) Description 05/09/2024 10:00 AM CDT Office Visit [address] [phone] [place] [id number] [address] [id number] documented as of this encounter Procedures Procedure Name Priority Date/Time Associated Diagnosis Comments VERIGENE GP PANEL STAT 01/08/2024 9:0 0 AM BRAIDING OPERATOR BLOOD CULTURE STAT 01/08/2024 9:00 AM BRAIDING OPERATOR BLOOD CULTURE STAT 01/08/2024 6:57 AM BRAIDING OPERATOR ROUTINE UA WITH MICROSCOPIC REFLEX TO CULTURE STAT 01/08/2024 6:34 AM BRAIDING OPERATOR URINE CULTURE STAT 01/08/2024 6:34 AM BRAIDING OPERATOR CBC WITH PLATELETS AND DIFFERENTIAL STAT 01/08/2024 4:27 AM BRAIDING OPERATOR TROPONIN T, HIGH SENSITIVITY STAT 01/08/2024 4:27 AM BRAIDING OPERATOR CBC WITH PLATELETS & DIFFERENTIAL STAT 01/08/2024 4:27 AM BRAIDING OPERATOR LIPASE STAT 01/08/2024 4:27 AM BRAIDING OPERATOR COMPREHENSIVE METABOLIC PANEL STAT 01/08/2024 4:27 AM BRAIDING OPERATOR EKG 12-LEAD, TRACING ONLY STAT 01/08/2024 12:16 AM BRAIDING OPERATOR documented in this encounter Results * Verigene GP Panel (01/08/2024 9:00 AM BRAIDING OPERATOR) Staphylococcus species Not Detected Not Detected 01/09/2024 10:12 PM BRAIDING OPERATOR [facility] Staphylococcus aureus Not Detected Not Detected 01/09/2024 10:12 PM BRAIDING OPERATOR [facility] Staphylococcus epidermidis Not Detected Not Detected 01/09/2024 10:12 PM BRAIDING OPERATOR [facility] Staphylococcus lugdunensis Not Detected Not Detected 01/09/2024 10:12 PM BRAIDING OPERATOR [facility] Enterococcus faecalis Not Detected Not Detected 01/09/2024 10:12 PM BRAIDING OPERATOR [facility] Enterococcus faecium Not Detected Not Detected 01/09/2024 10:12 PM BRAIDING OPERATOR [facility] Streptococcus species Not Detected Not Detected 01/09/2024 10:12 PM BRAIDING OPERATOR [facility] Streptococcus agalactiae Not Detected Not Detected 01/09/2024 10:12 PM BRAIDING OPERATOR [facility] Streptococcus anginosus group Not Detected Not Detected 01/09/2024 10:12 PM BRAIDING OPERATOR [facility] Streptococcus pneumoniae Not Detected Not Detected 01/09/2024 10:12 PM BRAIDING OPERATOR [facility] Streptococcus pyogenes Not Detected Not Detected 01/09/2024 10:12 PM BRAIDING OPERATOR [facility] Listeria species Not Detected Not Detected 01/09/2024 10:12 PM BRAIDING OPERATOR [facility] Blood BLOOD SPECIMEN / Unknown Venipuncture / Unknown 01/08/2024 9:00 AM BRAIDING OPERATOR 01/08/2024 9:24 AM BRAIDING OPERATOR Narrative [facility] - 01/09/2024 10:12 PM BRAIDING OPERATOR Specimen tested with Verigene multiplex, gram-positive blood culture nucleic acid test for the following targets: Staphylococcus aureus, Staphylococcus epidermidis, Staphylococcus lugdunensis, other Staphylococcus species, Enterococcus faecalis, Enterococcus faecium, Streptococcus species, Streptococcus agalactiae, Streptococcus anginosus group, Streptococcus pneumoniae, Streptococcus pyogenes, Listeria species, mecA (methicillin resistance), and Ambrosio/vanB (vancomycin resistance). Final identification and antimicrobial susceptibility testing will be verified by standard methods. Melissa Chavez MD LAB - MICRO GEN ERAL ORDERABLES [facility] Inf. Diseases Diag. Lab [address] [facility], [address] [place] [address], [facility] [phone] * (ABNORMAL) Blood Culture Peripheral Blood (01/08/2024 9:00 AM BRAIDING OPERATOR) Culture Positive on the 2nd day of incubation(A) 01/14/2024 8:05 AM BRAIDING OPERATOR [facility] Culture Lactobacillus species(AA) 01/14/2024 8:05 AM BRAIDING OPERATOR [facility] Comment:Identification obtai maria t by MALDI-TOF mass spectrometry research use only database. Test characteristics determined and verified by the [facility] Diagnostic Laboratory. Culture Actinomyces odontolyticus(AA ) 01/14/2024 8:05 AM BRAIDING OPERATOR [facility] Blood BLOOD SPECIMEN / Unknown Venipuncture / Unknown 01/08/2024 9:00 AM BRAIDING OPERATOR 01/08/2024 9:24 AM BRAIDING OPERATOR Narrative [facility] - 01/14/2024 8:05 AM BRAIDING OPERATOR Only an Aerobic Blood Culture Bottle was collected, interpret results with caution. Organism Antibiotic Method Susceptibility Lactobacillus species Ampicillin [place] 0.064 ug/mL: Susceptible Lactobacillus species Penicillin [place] 0.064 ug/mL: Susceptible Lactobacillus species Clindamycin [place] 0.125 ug/mL: Susceptible Lactobacillus species Gentamicin [place] <=0.064 ug/mL: No interpretation available Lactobacillus species Levofloxacin [place] >32 ug/mL: No interpretation available Lactobacillus species Vancomycin [place] >256 ug/mL: Resistant Comment:Antibiotics listed a s No Interpretation have no regulatory guidelines for susceptibility/resistance available. [place] (Actinomyces) odontolytica Penicillin [place] 0.094 ug/mL: Susceptible [place] (Actinomyces) odontolytica Amoxicillin/Clavulanate [place] 0.19 ug/mL: Susceptible [place] (Actinomyces) odontolytica Ceftriaxone [place] 0.75 ug/mL: Susceptible [place] (Actinomyces) odontolytica Clindamycin [place] 0.50 ug/mL: Susceptible [place] (Actinomyces) odontolytica Meropenem [place] 0.25 ug/mL: Susceptible [place] (Actinomyces) odontolytica metronidazole [place] 16 ug/mL: Intermediate Melissa Chavez MD LAB - MICRO GEN ERAL ORDERABLES [facility] Inf. Diseases Diag. Lab [address] [facility], [address] [place] [address], [facility] [phone] * Blood Culture Peripheral Blood (01/08/2024 6:57 AM BRAIDING OPERATOR) Culture No Growth 01/13/2024 11:46 AM BRAIDING OPERATOR [facility] Blood BLOOD SPECIMEN / Unknown Venipuncture / Unknown 01/08/2024 6:57 AM BRAIDING OPERATOR 01/08/2024 7:10 AM BRAIDING OPERATOR Melissa Chavez MD LAB - MICRO GEN ERAL ORDERABLES [facility] Inf. Diseases Diag. Lab [address] [facility], [address] [place] [phone], [facility] [phone] * Urine Culture (01/08/2024 6:34 AM BRAIDING OPERATOR) Culture <10,000 CFU/mL Mixture of Urogenital Aiyana 01/09/2024 6:13 AM BRAIDING OPERATOR [facility] Urine MID-STREAM URINE SPECIMEN / Unknown Non-blood Collection / Unknown 01/08/2024 6:34 AM BRAIDING OPERATOR 01/08/2024 7:02 AM BRAIDING OPERATOR Melissa Chavez MD LAB - MICRO GEN ERAL ORDERABLES Performing Organization Address City/[facility]/ZIP Co de Phone Number [facility] Inf. Diseases Diag. Lab [address] [facility], [place] [phone], [facility] [phone] * (ABNORMAL) UA with Microscopic reflex to Culture (01/08/2024 6:34 AM BRAIDING OPERATOR) Color Urine [place](A) Colorless, Straw, Light Yellow, Yellow 01/08/2024 7:03 AM [facility] Appearance Urine Slightly Cloudy(A) Clear 01/08/2024 7:03 AM BRAIDING OPERATOR LABORATORY Glucose Urine Negative Negative mg/dL 01/08/2024 7:03 AM BRAIDING OPERATOR LABORATORY Bilirubin Urine Negative Negative 7:03 AM BRAIDING OPERATOR LABORATORY Ketones Urine Negative Negative mg/dL 01/08/2024 7:03 AM [facility] Specific [place] Urine 1.023 1.003 - 1.035 01/08/2024 7:03 AM BRAIDING OPERATOR LABORATORY Blood Urine Large(A) Negative 01/08/2024 7:03 AM [facility] pH Urine 5.5 5.0 - 7.0 01/08/2024 7:03 AM [facility] Protein Albumin Urine 70(A) Negative mg/dL 01/08/2024 7:03 AM [facility] Urobilinogen Urine Normal Normal, 2.0 mg/dL 01/08/2024 7:03 AM [facility] Nitrite Urine Negative Negative 01/08/2024 7:03 AM [facility] Leukocyte Esterase Urine Trace(A) Negative 01/08/2024 7:03 AM [facility] Mucus Urine Present(A) None Seen /LPF 01/08/2024 7:03 AM [facility] RBC Urine >182(H) <=2 /HPF 01/08/2024 7:03 AM [facility] WBC Urine 59(H) <=5 /HPF 01/08/2024 7:03 AM [facility] Squamous Epithelials Urine 2(H) <=1 /HPF 01/08/2024 7:03 AM [facility] Urine MID-STREAM URINE SPECIMEN / Unknown Non-blood Collection / Unknown 01/08/2024 6:34 AM BRAIDING OPERATOR 01/08/2024 6:45 AM BRAIDING OPERATOR Narrative LABORATORY - 01/08/2024 7:03 AM BRAIDING OPERATOR Urine Culture ordered based on laboratory criteria Melissa Chavez MD LAB - URINE ORD ERABLES LABORATORY [facility] Acute Care Lab [address], [address] [place] [address], [facility] [phone] * (ABNORMAL) CBC with platelets and differential (01/08/2024 4:27 AM BRAIDING OPERATOR) WBC Count 8.8 4.0 - 11.0 10e3/uL 01/08/2024 4:36 AM [facility] RBC Count 4.41 3.80 - 5.20 10e6/uL 01/08/2024 4:36 AM [facility] Hemoglobin 11.6(L) 11.7 - 15.7 g/dL 01/08/2024 4:36 AM [facility] Hematocrit 36.8 35.0 - 47.0 % 01/08/2024 4:36 AM [facility] MCV 83 78 - 100 fL 01/08/2024 4:36 AM [facility] MCH 26.3(L) 26.5 - 33.0 pg 01/08/2024 4:36 AM [facility] MCHC 31.5 31.5 - 36.5 g/dL 01/08/2024 4:36 AM [facility] RDW 23.9(H) 10.0 - 15.0 % 01/08/2024 4:36 AM [facility] Platelet Count 354 150 - 450 10e3/uL 01/08/2024 4:36 AM [facility] % Neutrophils 52 % 01/08/2024 4:36 AM [facility] % Lymphocytes 39 % 01/08/2024 4:36 AM [facility] % Monocytes 7 % 01/08/2024 4:36 AM [facility] % Eosinophils 2 % 01/08/2024 4:36 AM [facility] % Basophils 0 % 01/08/2024 4:36 AM [facility] % Immature Granulocytes 0 % 01/08/2024 4:36 AM [facility] NRBCs per 100 WBC 0 <1 /100 024 4:36 AM [facility] Absolute Neutrophils 4.5 1.6 - 8.3 10e3/uL 01/08/2024 4:36 AM [facility] Absolute Lymphocytes 3.4 0.8 - 5.3 10e3/uL 01/08/2024 4:36 AM [facility] Absolute Monocytes 0.6 0.0 - 1.3 10e3/uL 01/08/2024 4:36 AM [facility] Absolute Eosinophils 0.2 0.0 - 0.7 10e3/uL 01/08/2024 4:36 AM [facility] Absolute Basophils 0.0 0.0 - 0.2 10e3/uL 01/08/2024 4:36 AM [facility] Absolute Immature Granulocytes 0.0 <=0.4 10e3/uL 01/08/2024 4:36 AM [facility] Absolute NRBCs 0.0 10e3/uL 01/08/2024 4:36 AM [facility] Blood BLOOD SPECIMEN / Unknown Venipuncture / Unknown 01/08/2024 4:27 AM BRAIDING OPERATOR 01/08/2024 4:34 AM BRAIDING OPERATOR Melissa Chavez MD LAB - BLOOD ORD ERABLES [facility]ORATORY [facility] [address], [address] [place] [address], [facility] [phone] * Lipase (01/08/2024 4:27 AM BRAIDING OPERATOR) Lipase 35 13 - 60 U/L 01/08/2024 4:53 AM BRAIDING OPERATOR LABORATORY Blood BLOOD SPECIMEN / Unknown Venipuncture / Unknown 01/08/2024 4:27 AM BRAIDING OPERATOR 01/08/2024 4:34 AM BRAIDING OPERATOR Melissa Chavez MD LAB - BLOOD ORD [facility] [address] 1st floor, [address] [place] [address], [facility] [phone] * Troponin T, High Sensitivity (01/08/2024 4:27 AM BRAIDING OPERATOR) Troponin T, High Sensitivity <6 <=14 ng/L 01/08/2024 4:53 AM BRAIDING OPERATOR LABORATORY Comment: Either a High Sensitivity Troponin [...] BLOOD SPECIMEN / Unknown Venipuncture / Unknown 01/08/2024 4:27 AM BRAIDING OPERATOR 01/08/2024 4:34 AM [facility] Melissa Chavez MD LAB - BLOOD ORD ERABLES LABORATORY [facility] Lab [address] 1st floor, [address] [place] [address], [place] [phone] * (ABNORMAL) Comprehensive metabolic panel (01/08/2024 4:27 AM [facility]) [facility] Sodium 136 135 - 145 mmol/L 01/08/2024 4:53 AM [facility] Comment:Reference intervals for this test were updated on 08/24/2023 to more accurately reflect our healthy population. There may be differences in the flagging of prior results with similar values performed with this method. Interpretation of those prior results can be made in the context of the updated reference intervals. Potassium 4.1 3.4 - 5.3 mmol/L 01/08/2024 4:53 AM [facility] Carbon Dioxide (CO2) 24 22 - 29 mmol/L 01/08/2024 4:53 AM [facility] Anion Gap 11 7 - 15 mmol/L 01/08/2024 4:53 AM [facility] Urea Nitrogen 7.1 6.0 - 20.0 mg/dL 01/08/2024 4:53 AM [facility] Creatinine 0.65 0.51 - 0.95 mg/dL 01/08/2024 4:53 AM [facility] GFR Estimate >90 >60 mL/min/1. 73m2 01/08/2024 4:53 AM [facility] Calcium 9.6 8.6 - 10.0 mg/dL 01/08/2024 4:53 AM [facility] Chloride 101 98 - 107 mmol/L 01/08/2024 4:53 AM [facility] Glucose 88 70 - 99 mg/dL 01/08/2024 4:53 AM [facility] Alkaline Phosphatase 276(H) 40 - 150 U/L 01/08/2024 4:53 AM [facility] Comment:Reference intervals for this test were updated on 10/12/2023 to more accurately reflect our healthy population. There may be differences in the flagging of prior results with similar values performed with this method. Interpretation of those prior results can be made in the context of the updated reference intervals. AST 36 0 - 45 U/L 01/08/2024 4:53 AM [facility] Comment:Reference intervals for this test were updated on 05/10/2023 to more accurately reflect our healthy population. There may be differences in the flagging of prior results with similar values performed with this method. Interpretation of those prior results can be made in the context of the updated reference intervals. ALT 120(H) 0 - 50 U/L 01/08/2024 4:53 AM [facility] Comment:Reference intervals for this test were updated on 05/10/2023 to more accurately reflect our healthy population. There may be differences in the flagging of prior results with similar values performed with this method. Interpretation of those prior results can be made in the context of the updated reference intervals. Protein Total 8.0 6.4 - 8.3 g/dL 01/08/2024 4:53 AM [facility] Albumin 4.1 3.5 - 5.2 g/dL 01/08/2024 4:53 AM [facility] Bilirubin Total 0.2 <=1.2 mg/dL 01/08/2024 4:53 AM [facility] Blood BLOOD SPECIMEN / Unknown Venipuncture / Unknown 01/08/2024 4:27 AM BRAIDING OPERATOR 01/08/2024 4:34 AM [facility] Melissa Chavez MD LAB - BLOOD ORD ERABLES LABORATORY [facility] Lab [address] 1st floor, [address] [place] [address], [facility] [phone] * EKG 12 lead (01/08/2024 12:16 AM [facility]) Systolic Blood Pressure mmHg RADIOLOGY RESULTS Diastolic Blood Pressure mmHg RADIOLOGY RESULTS Ventricular Rate 105 BPM RAD IOLOGY RESULTS Atrial Rate 105 BPM RADIOLOG Y RESULTS CO Interval 150 ms RADIOLOG Y RESULTS QRS Duration 68 ms RADIOLO GY RESULTS QT 332 ms RADIOLOGY RESULTS QTc 438 ms RADIOLOGY RESULTS P [place] 50 degrees RADIOLOGY RESULTS R AXIS 89 degrees RADIOLOGY RESULTS T [place] 34 degrees RADIOLOGY RESULTS Interpretation ECG Sinus tachycardia Possible Anterior infarct (cited on or before 04-JAN-2024) Abnormal ECG When compared with ECG of 04-JAN-2024 21:54, Questionable change in QRS axis Confirmed by GENERATED REPORT, COMPUTER ([id number]), editor magazine Sarah Levy ([id number]) on 01/08/2024 12:53:40 AM RADIOLOGY RESULTS 01/08/2024 12:1 6 AM BRAIDING OPERATOR 01/08/2024 12:53 AM BRAIDING OPERATOR Melissa Chavez MD ECG ORDERABLES RADIOLOGY RESULTS documented in this encounter Visit Diagnoses Diagnosis Acute cystitis with hematuria Acute cystitis Nausea and vomiting, unspecified vomiting type Syncope, unspecified syncope type documented in this encounter Administered Medications Inactive Administered Medications - up to 3 most recent administrations Medication Order MAR Action Action Date Dose Rate Site cefTRIAXone (ROCEPHIN) 2 g vial to attach to NS 100 ml bag for ADULTS or NS 50 ml bag for PEDS STAT, 2 g, Intravenous, ONCE, On 01/08/24 at 0755, For 1 dose, Indications: Urinary Tract Infection $New Bag 01/08/2024 8:03 AM BRAIDING OPERATOR 2 g diphenhydrAMINE (BENADRYL) injection 25 mg 25 mg, Intravenous, ONCE, On 01/08/24 at 0535, For 1 dose, Protect from light. $Given 01/08/2024 5:44 AM BRAIDING OPERATOR 25 mg diphenhydrAMINE (BENADRYL) injection 25 mg 25 mg, Intravenous, ONCE, On 01/08/24 at 0830, For 1 dose, Protect from light. $Given 01/08/2024 8:31 AM BRAIDING OPERATOR 25 mg HYDROmorphone (DILAUDID) tablet 4 mg 4 mg, Oral, ONCE, On 01/08/24 at 0420, For 1 dose $Given 01/08/2024 4:54 AM BRAIDING OPERATOR 4 mg HYDROmorphone (DILAUDID) tablet 4 mg 4 mg, Oral, ONCE, On 01/08/24 at 0725, For 1 dose $Given 01/08/2024 8:08 AM BRAIDING OPERATOR 4 mg HYDROmorphone (PF) (DILAUDID) injection 0.5 mg 0.5 mg, Intravenous, ONCE, On 2/10/24 at 0725, For 1 dose $Given 01/08/2024 7:29 AM BRAIDING OPERATOR 0.5 mg ipratropium - albuterol 0.5 mg/2.5 mg/3 mL (DUONEB) neb solution 3 mL 3 mL, Nebulization, ONCE, On 01/08/24 at 0845, For 1 dose $Given 01/08/2024 8:44 AM BRAIDING OPERATOR 3 mLs LORazepam (ATIVAN) injection 0.5 mg 0.5 mg, Intravenous, ONCE, On 01/08/24 at 0535, For 1 dose, This drug may cause significant respiratory depression. Monitor respiratory status and vital signs carefully for 1 hour after each dose. $Given 01/08/2024 5:43 AM BRAIDING OPERATOR 0.5 mg phenazopyridine (PYRIDIUM) tablet 100 mg 100 mg, Oral, ONCE, On 01/08/24 at 0725, For 1 dose $Given 01/08/2024 7:31 AM BRAIDING OPERATOR 100 mg predniSONE (DELTASONE) tablet 40 mg 40 mg, Oral, ONCE, On 01/08/24 at 0910, For 1 dose $Given 01/08/2024 9:10 AM BRAIDING OPERATOR 40 mg sodium chloride 0.9% BOLUS 1,000 mL Intravenous, 1,000 mL, ONCE, at 1,000 mL/hr, Administer over 1 Hours, On 01/08/24 at 0325, For 1 dose $New Bag 01/08/2024 4:28 AM BRAIDING OPERATOR 1,000 mLs 1000 mL/hr sodium chloride 0.9% BOLUS 1,000 mL Intravenous, 1,000 mL, ONCE, at 1,000 mL/hr, Administer over 1 Hours, On 01/08/24 at 0535, For 1 dose $New Bag 01/08/2024 5:43 AM BRAIDING OPERATOR 1,000 mLs 1000 mL/hr documented in this encounter Active and Recently Administered Medications Times are shown in BRAIDING OPERATOR. Scheduled Medication Order 01/06/2024 01/07/2024 01/08/2024 cefTRIAXone (ROCEPHIN) 2 g vial to attach to NS 100 ml bag for ADULTS or NS 50 ml bag for PEDS (COMPLETED) STAT, 2 g, Intravenous, ONCE, On 01/08/24 at 0755, For 1 dose, Indications: Urinary Tract Infection 0803 ($New Bag - Pro vider: Shabana Newton RN)0821 (Stopped - Provider: Shabana Newton RN) diphenhydrAMINE (BENADRYL) injection 25 mg (COMPLETED) 25 mg, Intravenous, ONCE, On 01/08/24 at 0535, For 1 dose, Protect from light. 0544 ($Given - Provi rosita: Daisy Pond RN) diphenhydrAMINE (BENADRYL) injection 25 mg (COMPLETED) 25 mg, Intravenous, ONCE, On 01/08/24 at 0830, For 1 dose, Protect from light. 0831 ($Given - Provi rosita: Shabana Newton RN) HYDROmorphone (DILAUDID) tablet 4 mg (COMPLETED) 4 mg, Oral, ONCE, On 01/08/24 at 0420, For 1 dose 0454 ($Given - Provi rosita: Daisy Pond RN) HYDROmorphone (DILAUDID) tablet 4 mg (COMPLETED) 4 mg, Oral, ONCE, On 01/08/24 at 0725, For 1 dose 0808 ($Given - Provi rosita: Shabana Newton RN) HYDROmorphone (PF) (DILAUDID) injection 0.5 mg (COMPLETED) 0.5 mg, Intravenous, ONCE, On 01/08/24 at 0725, For 1 dose 07 ($Given - Provi rosita: Shabana Newton RN) ipratropium - albuterol 0.5 mg/2.5 mg/3 mL (DUONEB) neb solution 3 mL (COMPLETED) 3 mL, Nebulization, ONCE, On 01/08/24 at 0845, For 1 dose 0844 ($Given - Provi rosita: Shabana Newton RN - Comment: per MD Chavez verbal order) LORazepam (ATIVAN) injection 0.5 mg (COMPLETED) 0.5 mg, Intravenous, ONCE, On 01/08/24 at 0535, For 1 dose, This drug may cause significant respiratory depression. Monitor respiratory status and vital signs carefully for 1 hour after each dose. 0543 ($Given - Provi rosita: Daisy Pond RN) phenazopyridine (PYRIDIUM) tablet 100 mg (COMPLETED) 100 mg, Oral, ONCE, On 01/08/24 at 0725, For 1 dose 0731 ($Given - Provi rosita: Shabana Newton RN) predniSONE (DELTASONE) tablet 40 mg (COMPLETED) 40 mg, Oral, ONCE, On 01/08/24 at 0910, For 1 dose 0910 ($Given - Provi rosita: Shabana Newton RN) sodium chloride 0.9% BOLUS 1,000 mL (COMPLETED) Intravenous, 1,000 mL, ONCE, at 1,000 mL/hr, Administer over 1 Hours, On 01/08/24 at 0325, For 1 dose 0428 ($New Bag - Pro vider: Sunny Daniel RN)0657 (Stopped - Provider: Daisy Pond RN) sodium chloride 0.9% BOLUS 1,000 mL (COMPLETED) Intravenous, 1,000 mL, ONCE, at 1,000 mL/hr, Administer over 1 Hours, On 01/08/24 at 0535, For 1 dose 0543 ($New Bag - Pro vider: Daisy Pond RN)0745 (Stopped - Provider: Shabana Newton RN) 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 Assessment Noted Time PHQ-9 Depression Total Score: 3 05/27/20 23 5:00 PM CDT documented as of this encounter Care Teams Pharmaceutical Compounding Supervisor Relationship Specialty [place] [address] [address] [address] PCP - General Family Medicine 04/22/23 [place] [address] [address] [address] Assigned Pain Medication Provider 12/07/22 [place] [address] [address] [address] Assigned PCP 01/23/23 [place] [address] [place] [address] Assigned Musculoskeletal Provider 01/23/23 Gregorio Dalton PA-C [address] [place] [address] Assigned Surgical Provider 05/22/23 Kingsley Garcia MD [address] [place] [address] Assigned Heart and Vascular Provider 08/07/23 [place] [address] [address] [address] Family Medicine 09/10/23 Master Shea PA-C [address] [place] [address] Physician Apprentice Plant Attendant Gastroenterology 09/10/23 Allyssa Justice MD [facility] [address] [place] [address] Hematology & Oncology 12/10/23 Genaro Christian MD [address] [place] [address] Cardiovascular Disease 12/22/23 Master Shea PA-C [address] [place] [address] Assigned Gastroenterology Provider 12/23/23 documented as of this encounter
--- OUTSIDE RECORDS SUMMARY | 2024-03-25 18:19 | XMS_ITS | Encounter Summary ---
Author Name Unknown Organization [place] Address [address] [facility] [place] [address] Care Team Providers Care Grounds Person Name Role Phone Segundo Mcclelland MD Unavailable Segundo Mcclelland MD Unavailable [phone] Qamar Jackson MD Unavailable Segundo Mcclelland MD Primary Care Provider + Gregorio Dalton PA-C Unavailable [phone] Kingsley Garcia MD Unavailable [phone] Segundo Mcclelland MD Unavailable Master Shea PA-C Unavailable Allyssa Justice MD Unavailable [phone] Genaro Christian MD Unavailable Master Shea PA-C Unavailable Reason for Visit * Reason Onset Date Comments Forms 01/10/2024 [facility] In fusion - Prescriber Orders Encounter Details Date Type Department Care Team (Late st Contact Info) Description 01/10/2024 Telephone [facility] [address] [place] [address] [place] [address] [place] [address] Forms ([facility] - Prescriber Orders) Social History Tobacco Use Types Packs/Day Years [...] Telephone Encounter - Kait Rao - 01/12/2024 7:24 AM CST Faxed. Kait Winters Lead Stripping And Booking Machine Operator eal Nash [place] * Telephone Encounter - Segundo Mcclelland MD - 01/11/2024 5:28 PM SIDE [place] Signed Segundo Mcclelland MD [place] * Telephone Encounter - Kait Rao - 01/10/2024 9:19 AM CST Rec'd Prescriber Orders from [facility]. Placed in PCP basket for review and signature. . 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 Assessment Noted Time PHQ-9 Depression Total Score: 3 05/27/20 5:00 PM CDT documented as of this encounter Care Teams Grounds Person Relationship Specialty Start [place] [address] [address] [address] PCP - General Family Medicine 04/22/23 [place] [address] [address] [address] Assigned Pain Medication Provider 12/07/22 [place] [address] [address] [address] Assigned PCP 01/23/23 [place] [address] [place] [address] Assigned Musculoskeletal Provider 01/23/23 Gregorio Dalton PA-C [address] [address] Assigned Surgical Provider 05/22/23 Kingsley Garcia MD [address] [place] [address] Assigned Heart and Vascular Provider 08/07/23 [place] [address] [place] [address] Family Medicine 09/10/23 Master Shea PA-C [address] [place] [place] [address] Mechanic Gastroenterology 09/10/23 Allyssa Justice MD [facility] [address] [place] [address] Hematology & Oncology 12/10/23 Genaro Christian MD [address] [place] [address] Cardiovascular Disease 12/22/23 Master Shea PA-C [address] [place] [address] Assigned Gastroenterology Provider 12/23/23 documented as of this encounter
--- OUTSIDE RECORDS SUMMARY | 2024-03-25 18:19 | XMS_ITS | Encounter Summary ---
Author Name Unknown Organization [place] Address [facility] [place] [address] Care Team Providers Care Egg Buyer Name Role Phone Segundo Mcclelland MD Unavailable [phone] Segundo Mcclelland MD Unavailable [phone] Qamar Jackson MD Unavailable Segundo Mcclelland MD Primary Care Provider + Gregorio Dalton PA-C Unavailable [phone] Kingsley Garcia MD Unavailable [phone] Segundo Mcclelland MD Unavailable [phone] Master Shea PA-C Unavailable Allyssa Justice MD Unavailable [phone] Genaro Christian MD Unavailable [phone] Master Shea-Shirley Unavailable Sienna Guillermo DO Unavailable [phone] Encounter Details Date Type Department Care Team (Late st Contact Info) Description 01/11/2024 Medical Correspondence [facility] [address] [place] [address] Scan, Non-Provider Social History Tobacco Use Types Packs/Day Years [...] CDT Office Visit [facility] [address] [place] [address] [place] [address] [place] [address] documented as of this encounter Visit Diagnoses Not on file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 Rule Out COVID-19 01/18/2024 01/18/2024 01/18/2024 8:53 PM CAPACITY PLANNER Rule Out COVID-19 01/28/2024 01/28/2024 01/28/2024 10:22 PM CAPACITY PLANNER Assessment Noted Time PHQ-9 Depression Total Score: 3 05/27/20 23 5:00 PM CDT documented as of this encounter Care Teams Egg Buyer Relationship Specialty Start [place] [address] [place] [address] PCP - General Family Medicine 04/22/23 [place] [address] [place] [address] Assigned Pain Medication Provider 12/07/22 [place] [address] [place] [address] Assigned PCP 01/23/23 [place] [address] [place] [address] Assigned Musculoskeletal Provider 01/23/23 Gregorio Dalton PA-C [address] [place] [address] Assigned Surgical Provider 05/22/23 Kingsley Garcia MD [address] [place] [address] Assigned Heart and Vascular Provider 08/07/23 [place] [address] [place] [address] Family Medicine 09/10/23 Master Shea PA-C [address] [place] [address] Physician Coil Winding Supervisor Gastroenterology 09/10/23 Allyssa Justice MD [facility] [address] [place] [address] Hematology & Oncology 12/10/23 Genaro Christian MD [address] [place], [place] [address] Cardiovascular Disease 12/22/23 Master Shea PA-C [address] [place] [address] Assigned Gastroenterology Provider 12/23/23 Sienna Guillermo DO [address] [place] [address] Physician Cardiovascular Disease 01/18/24 documented as of this encounter
--- OUTSIDE RECORDS SUMMARY | 2024-03-25 18:20 | XMS_ITS | Encounter Summary ---
Author Name Unknown Organization [facility] Address [address] [place] [address] Care Team Providers Care Director Of Acquisitions Name Role Phone Segundo Mcclelland MD Unavailable [phone] Segundo Mcclelland MD Unavailable [phone] Qamar Jackson MD Unavailable Segundo Mcclelland MD Primary Care Provider + Gregorio Dalton PA-C Unavailable [phone] Kingsley Garcia MD Unavailable [phone] Segundo Mcclelland MD Unavailable [phone] Master Shea PA-C Unavailable Allyssa Justice MD Unavailable [phone] Genaro Christian MD Unavailable Master Shea PA-C Unavailable Reason for Visit * Reason Comments Generalized Weakness Encounter Details Date Type Department Care Team (Late st Contact Info) Description 12/24/2023 9:21 PM [facility] - 12/25/2023 3:25 AM [facility] Emergency Dept [address] [place] [address] Seth Farias MD EMERGENCY PHYSICIAN [facility] [address] [place], [place] [id number] Near syncope; Gastroparesis; POTS (postural orthostatic tachycardia [...] Sign Reading Time Taken Comments Blood Pressure 118/72 12/25/2023 3:17 AM [facility] Pulse 102 12/25/2023 3:17 AM [facility] Temperature 36.6 ??C (97.8 ??F) 12/24/2023 9:20 PM CS T Respiratory Rate 26 12/24/2023 9:34 PM [facility] Oxygen Saturation 99% 12/25/2023 3:17 AM [facility] Inhaled Oxygen Concentration - - Weight - - Height - - Body Mass Index - - documented in this encounter Discharge Instructions * Attachments The following attachments cannot be sent through Care Everywhere. * Fainting ([place]gent[place]) * Gastroparesis ([place]gent[place]) documented in this encounter Medications at Time of Discharge Medication Sig Dispensed Refills Start Date End Date Cholecalciferol (VITAMIN D3) 50 MCG (1999 [place]) [...] anxiety naloxone (NARCAN) 4 MG/0.1ML nasal spray [place] 4 mg into one nostril alternating nostrils once as needed for opioid reversal 06/28/2023 zolpidem (AMBIEN) 10 MG tablet Take 10 mg by mouth At Bedtime 12/17/2022 apixaban ANTICOAGULANT (ELIQUIS) 5 MG tabletIndications:Mult iple subsegmental pulmonary emboli without acute cor pulmonale (H) Take 1 tablet (5 mg) by mouth 2 times daily for 14 days 28 tablet 12/25/2023 12/30/2023 bacitracin 500 UNIT/GM external ointmentIndications:Ul cer of [...] 07/23/2023 03/06/2024 documented as of this encounter ED Notes * Sukh Thomas RN - 12/24/2023 9:18 PM CST Seen here for syncope recently. Near syncopal today. Diarrhea, generalized. Recent colonoscopy. [facility] * Seth Farias MD - 12/24/2023 9:16 PM CST History Chief Complaint: Generalized Weakness (/) HPI Sandi Lopez is a 38 year old female with Syncope Recent bilateral segmental PE/recurrent PE on anticoag Recent left internal jugular vein to the left brachiocephalic vein IV Access Issues Acute on chronic anemia Iron deficiency anemia Thrombocytosis History of gastroparesis (Ozempic induced?) History of POTS History of Enterococcus faecalis bacteremia and ESBL Klebsiella bacteremia History of Eleonora fungemia Recent right heel wound/blister s/p I&D by podiatry Depression Anxiety Bipolar disorder Borderline personality disorder Hx of Chronic Opioid and Benzodiazepine Use with Drug Seeking Behavior Here because she feels still that passing out. No acute new symptoms or injuries. She is being ghosted she said by clinic in plan between PCP cards and other subspecialists to reestablish port for IVF treatments. She continues to ask me to put in an EJ IV. Nausea and chronic gastroparesis. No newabd pain. NO CP or SOB. No neuro sx. Independent Historian: Review of External Notes: Has an encounter for nearly every day of this month in some form already in 2023. Discharge summary from 12.08.23 with recurrent PE. Medications: apixaban ANTICOAGULANT (ELIQUIS) 5 MG tablet bacitracin 500 UNIT/GM external ointment Cholecalciferol (VITAMIN D3) 50 MCG (1999 [place]) [...] Procedure: ESOPHAGOGASTRODUODENOSCOPY; Surgeon: Meg Lee MD; Location: [facility]; Service: ESOPHAGOSCOPY, GASTROSCOPY, DUODENOSCOPY (EGD), COMBINED N/A 02/13/2016 Procedure: ESOPHAGOGASTRODUODENOSCOPY; Surgeon: Meg Lee MD; Location: [facility] OR; Service: ESOPHAGOSCOPY, GASTROSCOPY, DUODENOSCOPY (EGD), [...] Surgeon: Declan Mata MD; Location: [facility]; Service: OOPHORECTOMY Right Talar fracture lt foot surgery 10/1998 TONSILLECTOMY & ADENOIDECTOMY 1995 TRANSESOPHAGEAL ECHOCARDIOGRAM INTRAOPERATIVE N/A 09/17/2021 Procedure: ECHOCARDIOGRAM, TRANSESOPHAGEAL, INTRAOPERATIVE; Surgeon: GENERIC ANESTHESIA PROVIDER; Location: [facility] T[facility]AL [facility] Physical Exam Patient Vitals for the past 24 hrs: BP Temp Pulse Resp SpO2 12/24/232133 -- -- 110 26 99 % 12/24/232132 -- -- 110 17 98 % 12/24/232131 113/70 -- 107 -- 98 % 12/24/232119 138/89 97.8 ??F (36.6 ??C) 113 20 98 % Physical Exam General: Patient is well appearing. No distress. Head: Atraumatic. Eyes: Conjunctivae and EOM are [...] Emergency Department Course ECG Sinus tachy HR 108 unchanged from every EKG already in 2023. Reviewed echo form early nov 2023 Imaging: No orders to display Report per radiology Laboratory: Labs Ordered and Resulted from Time of ED Arrival to Time of ED Departure BASIC METABOLIC PANEL - Abnormal Result Value Sodium 136 Potassium 3.9 Chloride 102 Carbon Dioxide (CO2) 20 (*) Anion Gap 14 Urea Nitrogen 11.0 Creatinine 0.61 GFR Estimate >90 Calcium 9.2 Glucose 102 (*) CBC WITH PLATELETS AND DIFFERENTIAL - Abnormal WBC Count 9.9 RBC Count 4.40 Hemoglobin 11.5 (*) Hematocrit 36.5 MCV 83 MCH 26.1 (*) MCHC 31.5 RDW 25.3 (*) Platelet Count 517 (*) % Neutrophils 66 % Lymphocytes 26 % Monocytes 7 % Eosinophils 1 % Basophils 0 % Immature Granulocytes 0 NRBCs per 100 WBC 0 Absolute Neutrophils 6.4 Absolute Lymphocytes 2.6 Absolute Monocytes 0.7 Absolute Eosinophils 0.1 Absolute Basophils 0.0 Absolute Immature Granulocytes 0.0 Absolute NRBCs 0.0 HEPATIC FUNCTION PANEL - Abnormal Protein Total 8.4 (*) Albumin 4.6 Bilirubin Total 0.2 Alkaline Phosphatase 238 (*) AST 70 (*) ALT 88 (*) Bilirubin Direct <0.20 MAGNESIUM - Normal Magnesium 2.0 TROPONIN T, HIGH SENSITIVITY - Normal Troponin T, High Sensitivity 9 NT PROBNP INPATIENT - Normal N terminal Pro BNP Inpatient 37 LIPASE - Normal Lipase 38 ISTAT GASES LACTATE VENOUS POCT Lactic Acid POCT O2 Sat, Venous POCT pCO2 Venous POCT pH Venous POCT pO2 Venous POCT ROUTINE UA WITH MICROSCOPIC REFLEX TO CULTURE HCG QUALITATIVE URINE Procedures Emergency Department Course & Assessments: Initially a VBG from bed 2 was improperly reported on this patient and that was rectified with lab. Interventions: Medications sodium chloride 0.9% BOLUS 1,000 mL (has no administration in time range) Assessments: Independent Interpretation (X-rays, CTs, rhythm strip): Consultations/Discussion of Management or Tests: Social Determinants of Health affecting care: Disposition: The patient was discharged to home. Impression & Plan Medical Decision Making: Pt has complex PMH and psychosocial that comes in with recurrent feelings of syncope. Due to complexity an EKG trop and BNP were obtained to assess CV resp end organ function. No signs of dysfunction. Always tachy. No hypoxia or resp distress. No hypotension. Additionally no signs of new infection electrolyte abnl anemia. Always slightly elev LFT alk phos nothing >5 upper limit of normal and no abd pain red flags on exam. Discussed at length that although near syncope occurring that she has POTS, subsegemental PE unlikely contributory with workup as above. Very difficult IV start and I feel the emergency medical necessity for EJ is not present and is medically inappropriate to start a pre cedent here of expecting EJ in the ER when no life threat is identified. Diagnosis: ICD-10-CM 1. Near syncope R55 Discharge Medications: New Prescriptions No medications on file 12/24/2023 Seth Farias MD Stevens, Andrew C, MD 12/25/23 0231 [facility] documented in this encounter Plan of Treatment Upcoming Encounters Date Type Department Care Team (Late st Contact Info) Description 05/09/2024 10:00 AM CDT Office Visit [facility] [address] [place] [id number] [place] [address] [place] [address] documented as of this encounter Procedures Procedure Name Priority Date/Time Associated Diagnosis Comments CBC WITH PLATELETS AND DIFFERENTIAL STAT 12/24/2023 11:10 PM [facility] TROPONIN T, HIGH SENSITIVITY STAT 12/24/2023 11:10 PM [facility] CBC WITH PLATELETS & DIFFERENTIAL STAT 12/24/2023 11:10 PM [facility] NT PROBNP INPATIENT STAT 12/24/2023 1 1:10 PM [facility] MAGNESIUM STAT 12/24/2023 11:10 PM [facility] LIPASE STAT 12/24/2023 11:10 PM [facility] HEPATIC FUNCTION PANEL STAT 12/24/2023 11:10 PM [facility] BASIC METABOLIC PANEL STAT 12/24/2023 11:10 PM [facility] ISTAT GASES LACTATE VENOUS POCT STAT 12/24/2023 10:36 PM [facility] EKG 12-LEAD, TRACING ONLY STAT 12/24/2023 9:27 PM [facility] documented in this encounter Results * Lipase (12/24/2023 11:10 PM [facility]) [facility] [address] Lipase 38 13 - 60 U/L 12/24/2023 11:50 PM [facility] LABORATORY Blood BLOOD SPECIMEN / Unknown Venipuncture / Unknown 12/24/2023 11:10 PM [facility] 12/24/2023 11:18 PM [facility] Seth Farias MD LAB - BLOOD ORDERABL ES LABORATORY [facility] Acute Care Lab [address] Lab (1st floor, no room number) [place] [address], [facility] [phone] * (ABNORMAL) Hepatic function panel (12/24/2023 11:10 PM [facility]) Protein Total 8.4(H) 6.4 - 8.3 g/dL 12/24/2023 11:50 PM [facility] Albumin 4.6 3.5 - 5.2 g/dL 12/24/2023 11:50 PM [facility] Bilirubin Total 0.2 <=1.2 mg/dL 12/24/2023 11:50 PM [facility] Alkaline Phosphatase 238(H) 40 - 150 U/L 12/24/2023 11:50 PM [facility] Comment:Reference intervals for this test were updated on 10/12/2023 to more accurately reflect our healthy population. There may be differences in the flagging of prior results with similar values performed with this method. Interpretation of those prior results can be made in the context of the updated reference intervals. AST 70(H) 0 - 45 U/L 12/24/2023 11:50 PM [facility] Comment:Reference intervals for this test were updated on 05/10/2023 to more accurately reflect our healthy population. There may be differences in the flagging of prior results with similar values performed with this method. Interpretation of those prior results can be made in the context of the updated reference intervals. ALT 88(H) 0 - 50 U/L 12/24/2023 11:50 PM [facility] Comment:Reference intervals for this test were updated on 05/10/2023 to more accurately reflect our healthy population. There may be differences in the flagging of prior results with similar values performed with this method. Interpretation of those prior results can be made in the context of the updated reference intervals. Bilirubin Direct <0.20 0.00 - 0.30 mg/dL 12/24/2023 11:50 PM [facility] Blood BLOOD SPECIMEN / Unknown Venipuncture / Unknown 12/24/2023 11:10 PM [facility] 12/24/2023 11:18 PM [facility] Seth Farias MD LAB - BLOOD ORDERABL ES LABORATORY [facility] Acute Care Lab [address] [facility] Lab (1st floor, no room number) [place] [address], [facility] [phone] * Nt probnp inpatient (BNP) (12/24/2023 11:10 PM [facility]) N terminal Pro BNP Inpatient 37 0 - 450 pg/mL 12/25/2023 12:00 AM [facility] Comment: Reference range shown and results [...] BLOOD SPECIMEN / Unknown Venipuncture / Unknown 12/24/2023 11:10 PM [facility] 12/24/2023 11:18 PM [facility] Seth Farias MD LAB - BLOOD ORDERABL ES RH LABORATORY [facility] Acute Care Lab [address] [facility] Lab (1st floor, no room number) [place] [address], [facility] [phone] * (ABNORMAL) CBC with platelets and differential (12/24/2023 11:10 PM [facility]) Pathologist [facility] WBC Count 9.9 4.0 - 11.0 10e3/uL 12/24/2023 11:21 PM [facility] RBC Count 4.40 3.80 - 5.20 10e6/uL 12/24/2023 11:21 PM [facility] Hemoglobin 11.5(L) 11.7 - 15.7 g/dL 12/24/2023 11:21 PM [facility] Hematocrit 36.5 35.0 - 47.0 % 12/24/2023 11:21 PM [facility] MCV 83 78 - 100 fL 12/24/2023 11:21 PM [facility] MCH 26.1(L) 26.5 - 33.0 pg 12/24/2023 11:21 PM [facility] MCHC 31.5 31.5 - 36.5 g/dL 12/24/2023 11:21 PM [facility] RDW 25.3(H) 10.0 - 15.0 % 12/24/2023 11:21 PM [facility] Platelet Count 517(H) 150 - 450 10e3/uL 12/24/2023 11:21 PM [facility] % Neutrophils 66 % 12/24/2023 11:21 PM [facility] % Lymphocytes 26 % 12/24/2023 11:21 PM [facility] % Monocytes 7 % 12/24/2023 11:21 PM [facility] % Eosinophils 1 % 12/24/2023 11:21 PM [facility] % Basophils 0 % 12/24/2023 11:21 PM [facility] % Immature Granulocytes 0 % 12/24/2023 11:21 PM [facility] NRBCs per 100 WBC 0 <1 /100 024 11:21 PM [facility] Absolute Neutrophils 6.4 1.6 - 8.3 10e3/uL 12/24/2023 11:21 PM [facility] Absolute Lymphocytes 2.6 0.8 - 5.3 10e3/uL 12/24/2023 11:21 PM [facility] Absolute Monocytes 0.7 0.0 - 1.3 10e3/uL 12/24/2023 11:21 PM [facility] Absolute Eosinophils 0.1 0.0 - 0.7 10e3/uL 12/24/2023 11:21 PM [facility] Absolute Basophils 0.0 0.0 - 0.2 10e3/uL 12/24/2023 11:21 PM [facility] Absolute Immature Granulocytes 0.0 <=0.4 10e3/uL 12/24/2023 11:21 PM [facility] Absolute NRBCs 0.0 10e3/uL 12/24/2023 11:21 PM [facility] Blood BLOOD SPECIMEN / Unknown Venipuncture / Unknown 12/24/2023 11:10 PM [facility] 12/24/2023 11:18 PM [facility] Ting Arriaga DO LAB - BLOOD ORDERA BLES RH LABORATORY [facility] Acute Care Lab [address] Lab (1st floor, no room number) [place] [address], [facility] [phone] * Troponin T, High Sensitivity (12/24/2023 11:10 PM [facility]) Troponin T, High Sensitivity 9 <=14 ng/L 12/24/2023 11:37 PM [facility] Comment: Either a High Sensitivity Troponin [...] BLOOD SPECIMEN / Unknown Venipuncture / Unknown 12/24/2023 11:10 PM [facility] 12/24/2023 11:18 PM [facility] Seth Farias MD LAB - BLOOD ORDERABL ES [facility] Care Lab [address] Lab (1st floor, no room number) [place] [address] [phone] * Magnesium (12/24/2023 11:10 PM [facility]) [facility] [address] Magnesium 2.0 1.7 - 2.3 mg/dL 12/24/2023 11:37 PM [facility] LABORAT[facility] Blood BLOOD SPECIMEN / Unknown Venipuncture / Unknown 12/24/2023 11:10 PM [facility] 12/24/2023 11:18 PM [facility] Ting Arriaga DO LAB - BLOOD ORDERA BLES [facility] Lab [address] Lab (1st floor, no room number) [place] [address], [facility] [phone] * (ABNORMAL) Basic metabolic panel (12/24/2023 11:10 PM [facility]) Sodium 136 135 - 145 mmol/L 12/24/2023 11:37 PM [facility] LABORATORY Comment:Reference intervals for this test were updated on 08/24/2023 to more accurately reflect our healthy population. There may be differences in the flagging of prior results with similar values performed with this method. Interpretation of those prior results can be made in the context of the updated reference intervals. Potassium 3.9 3.4 - 5.3 mmol/L 12/24/2023 11:37 PM [facility] Chloride 102 98 - 107 mmol/L 12/24/2023 11:37 PM [facility] Carbon Dioxide (CO2) 20(L) 22 - 29 mmol/L 12/24/2023 11:37 PM [facility] Anion Gap 14 7 - 15 mmol/L 12/24/2023 11:37 PM [facility] Urea Nitrogen 11.0 6.0 - 20.0 mg/dL 12/24/2023 11:37 PM [facility] Creatinine 0.61 0.51 - 0.95 mg/dL 12/24/2023 11:37 PM [facility] GFR Estimate >90 >60 mL/min/1. 73m2 12/24/2023 11:37 PM [facility] Calcium 9.2 8.6 - 10.0 mg/dL 12/24/2023 11:37 PM [facility] Glucose 102(H) 70 - 99 mg/dL 12/24/2023 11:37 PM [facility] Blood BLOOD SPECIMEN / Unknown Venipuncture / Unknown 12/24/2023 11:10 PM [facility] 12/24/2023 11:18 PM [facility] Ting Arriaga DO LAB - BLOOD ORDERA BLES LABORATORY [facility] Acute Care Lab [address] Lab (1st floor, no room number) [place] [address], [facility] [phone] * iStat Gases (lactate) venous, POCT (12/24/2023 10:36 PM [facility]) Lactic Acid POCT 12/25/2023 12:55 AM [facility] POC Comment:This is a corrected result. Previous result was 9.0 mmol/L on 12/24/2023 at 10:46 PM [facility] O2 Sat, Venous POCT 12/25/2023 12:55 AM [facility] POC Comment:This is a corrected result. Previous result was 30 % on 12/24/2023 at 10:46 PM [facility] pCO2 Venous POCT 12/25/2023 12:55 AM [facility] POC Comment:This is a corrected result. Previous result was 34 mm Hg on 12/24/2023 at 10:46 PM [facility] pH Venous POCT 12/25/2023 12:55 AM [facility] POC Comment:This is a corrected result. Previous result was 6.93 on 12/24/2023 at 10:46 PM [facility] pO2 Venous POCT 12/25/2023 12:55 AM [facility] POC Comment:This is a corrected result. Previous result was 31 mm Hg on 12/24/2023 at 10:46 PM [facility] Blood, venous BLOOD SPECIMEN / Unknown 12/24/2023 10:36 PM [facility] 12/24/2023 10:46 PM [facility] Narrative [facility] LAB[facility]AT[facility] POC - 12/25/2023 12:55 AM [facility] Previously reported component [ HCO3V POCT ] is no longer reported. Seth Farias MD LAB - [facility] POCT RH LABORATORY POC [facility] Acute Care Lab [address] Lab (1st floor, no room number) [place] [address] [phone] * EKG 12 lead (12/24/2023 9:27 PM [facility]) Systolic Blood Pressure mmHg RADIOLOGY RESULTS Diastolic Blood Pressure mmHg RADIOLOGY RESULTS Ventricular Rate 108 BPM RAD IOLOGY RESULTS Atrial Rate 108 BPM RADIOLOG Y RESULTS IA Interval 164 ms RADIOLOG Y RESULTS QRS Duration 68 ms RADIOLO GY RESULTS QT 334 ms RADIOLOGY RESULTS QTc 447 ms RADIOLOGY RESULTS P [place] 33 degrees RADIOLOGY RESULTS R AXIS 19 degrees RADIOLOGY RESULTS T [place] -7 degrees RADIOLOGY RESULTS Interpretation ECG Sinus tachycardia Cannot rule out Anterior infarct (cited on or before 01-DEC-2023) Abnormal ECG When compared with ECG of 20-DEC-2023 14:31, No significant change was found Unconfirmed report - interpretation of this ECG is computer generated - see medical record for final interpretation Confirmed by - EMERGENCY ROOM, PHYSICIAN ([id number]), sports editor SANDI RICKETTS ([id number]) on 12/25/2023 8:21:02 AM RADIOLOGY RESULTS 12/24/2023 9:27 PM [facility] 12/25/2023 8:21 AM [facility] Ting Arriaga DO ECG ORDERABLES RADIOLOGY RESULTS documented in this encounter Visit Diagnoses Diagnosis Near syncope Syncope and collapse Gastroparesis POTS (postural orthostatic tachycardia syndrome) Tachycardia, unspecified Multiple subsegmental pulmonary emboli without acute cor pulmonale (H) documented in this encounter Administered Medications Inactive Administered Medications - up to 3 most recent administrations Medication Order MAR Action Action Date Dose Rate Site apixaban ANTICOAGULANT (ELIQUIS) tablet 5 mg 5 mg, Oral, ONCE, On 12/25/23 at 0230, For 1 dose, Indications: DVT-PE Treatment $Given 12/25/2023 3:09 AM [facility] 5 mg HYDROmorphone (DILAUDID) tablet 2 mg 2 mg, Oral, ONCE, On 12/25/23 at 0230, For 1 dose $Given 12/25/2023 3:09 AM [facility] 2 mg documented in this encounter Active and Recently Administered Medications Times are shown in [facility]. Scheduled Medication Order 12/23/2023 12/24/2023 12/25/2023 apixaban ANTICOAGULANT (ELIQUIS) tablet 5 mg (COMPLETED) 5 mg, Oral, ONCE, On 12/25/23 at 0230, For 1 dose, Indications: DVT-PE Treatment 0309 ($Given - Provider: Flo Rao RN) HYDROmorphone (DILAUDID) tablet 2 mg (COMPLETED) 2 mg, Oral, ONCE, On 12/25/23 at 0230, For 1 dose 0309 ($Given - Provider: Flo Rao RN) sodium chloride 0.9% BOLUS 1,000 mL Intravenous, 1,000 mL, ONCE, at 1,000 mL/hr, Administer over 1 Hours, On Wed12/24/23 at 2150, For 1 dose 2150 (Canceled Entry - Provider: Orders Generic Provider - Comment: Automatically canceled at discontinue of medication order) 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 Assessment Noted Time PHQ-9 Depression Total Score: 3 05/27/20 23 5:00 PM CDT documented as of this encounter Care Teams Director Of Acquisitions Relationship Specialty Start [place] [address] [address] [address] PCP - General Family Medicine 04/22/23 [place] [address] [address] [address] Assigned Pain Medication Provider 12/07/22 [place] [address] [place] [address] Assigned PCP 01/23/23 [place] [address] [place] [address] Assigned Musculoskeletal Provider 01/23/23 Gregorio Dalton PA-C [address] [address] Assigned Surgical Provider 05/22/23 Kingsley Garcia MD [address] [place] [address] Assigned Heart and Vascular Provider 08/07/23 [place] [address] [place] [address] Family Medicine 09/10/23 Master Shea PA-C [address] [place] [address] Physician Wire Temperer Gastroenterology 09/10/23 Allyssa Justice MD [facility] [address] [place] [address] [place] [address] Hematology & Oncology 12/10/23 Genaro Christian MD [address] [place] [address] Cardiovascular Disease 12/22/23 Master Shea PA-C [address] [place] [address] Assigned Gastroenterology Provider 12/23/23 documented as of this encounter
--- OUTSIDE RECORDS SUMMARY | 2024-03-25 18:20 | XMS_ITS | Encounter Summary ---
Author Name Unknown Organization [facility] Address [address] [place] [address] Care Team Providers Care Network Systems Integrator Name Role Phone Segundo Mcclelland MD Unavailable [phone] Segundo Mcclelland MD Unavailable Qamar Jackson MD Unavailable Segundo Mcclelland MD Primary Care Provider + Gregorio Dalton PA-C Unavailable [phone] Kingsley Garcia MD Unavailable + [phone] Segundo Mcclelland MD Unavailable [phone] Master Shea PA-C Unavailable Allyssa Justice MD Unavailable [phone] Genaro Christian MD Unavailable Master Shea PA-C Unavailable Reason for Referral * CV Cardio consult (Urgent: 3-5 Days) - Pending Review Specialty Diagnoses / Procedures Referred By Contzbigniew t Referred To Contact Cardiovascular Disease Diagnoses Syncope, unspecified [place] [address] [place] [address] Referral ID Status Reason Start Date Expiration Date V isits Requested Visits Authorized [id number] Pending Review 12/21/2023 12/20/2024 1 1 Question Answer Reason for Consult: General Cardiology Scheduling Instructions: [facility] will call you to coordinate your care as prescribed by your provider. If you don't hear from a sales representative printing supplies within 2 business days, please call [phone]. Comments Please be aware that coverage of these services is subject to the terms and limitations of your health insurance plan. Call member services at your health plan with any benefit or coverage questions. [facility] will call you to coordinate your care as prescribed by your provider. If you don't hear from a sales representative printing supplies within 2 business days, please call [phone]. 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 Encounter Details Date Type Department Care Team (Late st Contact Info) Description 12/21/2023 1:30 AM AUTOMOTIVE GLASS TECHNICIAN E-Visit [facility] [address] [place] [address] [place] [address] [place] [address] Other (Entered automatically based on [...] Telephone Encounter - Segundo Mcclelland MD - 12/21/2023 9:03 AM AUTOMOTIVE GLASS TECHNICIAN Provider E-Visit time total (minutes): 20 MOTIVE GLASS TECHNICIAN documented in this encounter Plan of Treatment Upcoming Encounters Date Type Department Care Team (Late st Contact Info) Description 05/09/2024 10:00 AM CDT Office Visit [facility] [address] [place] [address] [place] [address] [place], [place] [id number] Scheduled Referrals Name Type Priority Associated Diagnoses Orde r Schedule Adult Cardiology 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 Referral Urgent: 3-5 Days Syncope, unspecified syncope type Expected: 12/21/2023 (Approximate), Expires: 12/21/2024 documented as of this encounter Visit Diagnoses Diagnosis Syncope, unspecified syncope type- Primary 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 Assessment Noted Time PHQ-9 Depression Total Score: 3 05/27/20 23 5:00 PM CDT documented as of this encounter Care Teams Network Systems Integrator Relationship Specialty Start [place] [address] [place] [id number] PCP - General Family Medicine 04/22/23 [place] [address] [address] [address] Assigned Pain Medication Provider 12/07/22 [place] [address] [address] [address] Assigned PCP 01/23/23 [place] [address] [address] [address] Assigned Musculoskeletal Provider 01/23/23 Gregorio Dalton PA-C [address] [address] Assigned Surgical Provider 05/22/23 Kingsley Garcia MD [address] [place] [address] Assigned Heart and Vascular Provider 08/07/23 [place] [address] [address] [address] Family Medicine 09/10/23 Master Shea PA-C [address] [place] [address] Physician Rn Admissions Gastroenterology 09/10/23 Allyssa Justice MD [facility] [address] [place] [address] Hematology & Oncology 12/10/23 Genaro Christian MD [address] [place] [address] Cardiovascular Disease 12/22/23 Master Shea PA-C [address] [address], [place] [address] Assigned Gastroenterology Provider 12/23/23 documented as of this encounter
--- OUTSIDE RECORDS SUMMARY | 2024-03-25 18:20 | XMS_ITS | Encounter Summary ---
Author Name Unknown Organization [facility] Address [facility] [place] [address] Care Team Providers Care Nematologist Name Role Phone Segundo Mcclelland MD Unavailable [phone] Segundo Mcclelland MD Unavailable [phone] Qamar Jackson MD Unavailable Segundo Mcclelland MD Primary Care Provider + Gregorio Dalton PA-C Unavailable [phone] Kingsley Garcia MD Unavailable + [phone] Segundo Mcclelland MD Unavailable [phone] Master Shea PA-C Unavailable Allyssa Justice MD Unavailable [phone] Genaro Christian MD Unavailable [phone] Master Shea PA-C Unavailable Encounter Details Date Type Department Care Team (Latest Contact Info) Description 01/01/2024 Travel Social History Tobacco Use Types Packs/Day [...] Description 05/09/2024 10:00 AM CDT Office Visit [facility] [address] [place] [address] [place] [address] [place], [place] [id number] documented as of this encounter Visit Diagnoses Not on file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 Assessment Noted Time PHQ-9 Depression Total Score: 3 05/27/20 23 5:00 PM CDT documented as of this encounter Care Teams Nematologist Relationship Specialty Start [place] [address] [place] [id number] PCP - General Family Medicine 04/22/23 [place] [address] [place] [address] Assigned Pain Medication Provider 12/07/22 [place] [address] [place] [address] Assigned PCP 01/23/23 [place] [address] [place] [address] Assigned Musculoskeletal Provider 01/23/23 Gregorio Dalton PA-C [address] [place] [address] Assigned Surgical Provider 05/22/23 Kingsley Garcia MD [address] [place] [address] Assigned Heart and Vascular Provider 08/07/23 [place] [address] [place] [address] Family Medicine 09/10/23 Master Shea PA-C [address] [place] [address] Physician Sitecore Developer Gastroenterology 09/10/23 Allyssa Justice MD [facility] [address] [place] [address] Hematology & Oncology 12/10/23 Genaro Christian MD [address] [place] [address] Cardiovascular Disease 12/22/23 Master Shea PA-C [address] [place] [address] Assigned Gastroenterology Provider 12/23/23 documented as of this encounter
--- OUTSIDE RECORDS SUMMARY | 2024-03-25 18:20 | XMS_ITS | Encounter Summary ---
Author Name Unknown Organization [facility] Address [facility] [place] [place] [address] Care Team Providers Care Rod Placer Name Role Phone Segundo Mcclelland MD Unavailable [phone] Segundo Mcclelland MD Unavailable [phone] Qamar Jackson MD Unavailable Segundo Mcclelland MD Primary Care Provider + Gregorio Dalton PA-C Unavailable Kingsley Garcia MD Unavailable [phone] Segundo Mcclelland MD Unavailable [phone] Master Shea PA-C Unavailable Allyssa Justice MD Unavailable [phone] Genaro Christian MD Unavailable Master Shea PA-C Unavailable Reason for Visit * Reason Comments Syncope Encounter Details Date Type Department Care Team (Late st Contact Info) Description 01/05/2024 2:01 AM TANK OPERATOR - 01/05/2024 2:20 PM TANK OPERATOR [facility] Emergency Dept [address] [place] [id number] Janie Arellano MD [facility] [address] [place] [address] Luz Cazares DO [facility] [address] [place] [address] Injury of head, initial encounter; Elevated LFTs; Abdominal pain, unspecified abdominal location Discharge Disposition: Home or Self Care Social [...] Sign Reading Time Taken Comments Blood Pressure 134/96 01/05/2024 1:29 PM TANK OPERATOR Pulse 114 01/05/2024 1:29 PM TANK OPERATOR Temperature 36.9 ??C (98.4 ??F) 01/04/2024 9:53 PM CS T Respiratory Rate 20 01/05/2024 7:00 AM TANK OPERATOR Oxygen Saturation 96% 01/05/2024 1:29 PM TANK OPERATOR Inhaled Oxygen Concentration - - Weight 90.7 kg (200 lb) 01/04/2024 9:53 PM TANK OPERATOR Height 167.6 cm (5' 6) 01/04/2024 9:53 PM TANK OPERATOR Body Mass Index 32.28 01/04/2024 9:53 PM TANK OPERATOR documented in this encounter Discharge Instructions * Discharge Instructions* Luz Cazares DO - 01/05/2024 12:24 PM TANK OPERATOR Continue your previously prescribed medications Follow-up with your primary care doctor in 1 to 2 days. Follow up with your doctor regarding your elevated liver function test Return to the ER for any worsening or concerning symptoms OPERATOR * Attachments The following attachments cannot be sent through Care Everywhere. * Abdominal Pain (Sinhala) * Head Injury: Closed: General Info (Sinhala) documented in this encounter Medications at Time [...] anxiety naloxone (NARCAN) 4 MG/0.1ML nasal spray [place] 4 mg into one nostril alternating nostrils once as needed for opioid reversal 06/28/2023 zolpidem (AMBIEN) 10 MG tablet Take 10 mg by mouth At Bedtime 12/17/2022 apixaban ANTICOAGULANT (ELIQUIS) 5 MG tabletIndications:Mult iple subsegmental pulmonary emboli without acute cor pulmonale (H) Take 1 tablet (5 mg) by mouth 2 times daily 180 tablet 1 01/06/2024 03/13/2024 apixaban ANTICOAGULANT (ELIQUIS) 5 MG tabletIndications:Mult iple subsegmental pulmonary emboli without acute cor pulmonale (H) Take 1 tablet (5 mg) by mouth 2 times daily 60 tablet 12/30/2023 01/06/2024 bacitracin 500 UNIT/GM external ointmentIndications:Ul cer of [...] as of this encounter ED Notes * Jonna Pimentel RN - 01/05/2024 12:30 PM CST Pt states that she has only been able to keep a couple of ice chips down; states that the MD statedshe could get fluids if need be. MD aware. OPERATOR * Jonna Pimentel RN - 01/05/2024 11:14 AM CST Pt states that she is nauseous; the only medication that works is ativan and benadryl. MD updated. OPERATOR * Jonna Pimentel RN - 01/05/2024 9:[address] in with pt. Pt states she needs to use restroom first. Ct will check back. OPERATOR * Jonna Pimentel RN - 01/05/2024 8:[address] here; Matt RN in with pt attempting an IV and pt request. Will call CT. OPERATOR * Jonna Pimentel RN - 01/05/2024 8:13 AM CST BEVEL GEAR GENERATOR OPERATOR answered call light. Pt requesting to speak with the MD. MD aware. ANIE * Jonna Pimentel RN - 01/05/2024 8:02 AM CST Pt states that her abdomen is really hurting. I'm like hot but cold. Pt also noted to be diaphoretic. Pt given prescribed dilaudid per MD. OPERATOR * Jonna Pimentel RN - 01/05/2024 7:57 AM CST Pt IV infiltrated; aware. Non-con CT ordered. OPERATOR * Casey Duncan RN - 01/05/2024 5:47 AM CST 2 RN attempted to put IV using ultrasound but failed. Vascular Access Adult IP Consult ordered. OPERATOR * Manpreet Bhatt RN - 01/04/2024 9:53 PM CST Pt c/o syncope episode falling down 8 flights of stairs around 1942. Pt endorses lower back pain and right knee pain. Pt friend at bedside. C-Collar applied in triage Triage Assessment (Adult) Row Name 01/04/24 2987 Triage Assessment Airway WDL WDL Respiratory WDL Respiratory WDL WDL Skin Circulation/Temperature WDL Skin Circulation/Temperature WDL WDL Cardiac WDL Cardiac WDL WDL Peripheral/Neurovascular WDL Peripheral Neurovascular WDL WDL Cognitive/Neuro/Behavioral WDL Cognitive/Neuro/Behavioral WDL WDL OPERATOR * Janie Arellano MD - 01/04/2024 9:49 PM CST History Chief Complaint: Syncope The history is provided by the patient and a friend. Sandi Lopez is a 38 year old female with history of PE, POTS, gastroparesis, and mental illness presenting with her friend for evaluation of syncope. She was seen in this emergency department3 days ago for chest pain. Since that time she has been feeling unwell. She describes pain primarily in her left flank radiating around to her epigastrium. She believes she may have fever because shehas alternating chills and feeling hot. Today she was getting ready to take laundry downstairs whenshe suddenly felt she was going black and then regained consciousness at the bottom of the stairs. She estimates this to be 8 steps. She denies prodromal chest pain, shortness of breath, or palpitations. She admits she has not been eating or drinking well due to her illness this week. She has nausea without vomiting. She denies rash. Since the fall she has noticed right knee pain and some low back pain. She does have headache and her friend comments she was confused when he picked her up to bring her to the emergency department. He feels this has improved since they were waiting in the waiting room but her pain seems to have worsened. Of note, she is not taking the prescribed anticoagulant because her insurance is not covering it. Independent Historian: Friend provides supplemental history as noted above. Review of External Notes: I reviewed ED note from 01/01/24 for chest pain. Known PE and was given Xarelto, Patient called nursetriage on 01/04/24 reporting syncope and fall. Patient was referred to the ED. In the last 30 days, patient has been seen 10 times in the ED. Medications: Eliquis Vitamin D3 Benadryl Folvite Neurontin Dilaudid Ativan Multiple Vitamins -Iron Protonix Rivaroxaban Ambien Past Medical History: Allergic rhinitis Anemia Atrial flutter Borderline personality disorder Depressive disorder Dysthymic disorder Eating disorder GERD Gastroparesis Hypertension Intermittent asthma Kidney stone Kathleen-Mustafa tear Mesenteric lymphadenitis Mild persistent asthma Opioid type dependence, continuous Postural orthostatic tachycardia syndrome Psychogenic nonepileptic seizure PTSD Pulmonary embolism CANELO UTI Bipolar 1 disorder Past Surgical History: Talar fracture left foot surgery Cautery of cervix, cryocautery Colposcopy, loop electrd cervix excis Diagnostic pelvic laparoscopy ERCP Tonsillectomy and adenoidectomy Adenoidectomy Cholecystectomy Cerclage cervical EGD, combined x5 Hysterectomy vaginal Insert midline He Appendectomy Oophorectomy - right Tubal ligation Ankle surgery Laryngoscopy Transesophageal echocardiogram intraoperative Colonoscopy Back surgery Chest port placement Arthroscopy left knee with lateral menisectomy Irrigation and debridement foot - right Ovarian cystectomy x4 Physical Exam Patient Vitals for the past 24 hrs: BP Temp Temp src Pulse Resp SpO2 Height Weight 01/05/24 0700 113/81 -- -- 100 20 94 % -- -- 01/05/24 0658 134/72 -- -- 100 20 96 % -- -- 01/04/24 2153 124/80 98.4 ??F (36.9 ??C) Oral (!) 129 16 98 % 1.676 m (5' 6) 90.7 kg (200 lb) Physical Exam General: Well-developed and well-nourished. Uncomfortable appearing young woman. Cooperative. Head: Atraumatic. Eyes: Conjunctivae, lids, and sclerae are normal. ENT: Normal nose. Moist mucous membranes. Neck: Supple. Normal range of motion. CV: Tachycardic rate and regular rhythm. Normal heart sounds with no murmurs, rubs, or gallops detected. Resp: No respiratory distress. Clear to auscultation bilaterally without decreased breath sounds, wheezing, rales, or rhonchi. GI: Soft. Non-distended. Tenderness to palpation in the left upper quadrant and epigastrium. MS: No bony tenderness of the right knee. Decreased range of motion secondary to pain. Questionabletiny effusion. No midline thoracic spine tenderness. Skin: Warm. Non-diaphoretic. No pallor. No rash/shingles. Neuro: Awake. A&Ox3. Normal strength. Psych: Normal mood and affect. Normal speech. Vitals reviewed. Emergency Department Course EKG Indication: Syncope Time: 2153 Rate 128 bpm. MD interval 144. QRS duration 64. QT/QTc 282/411. Sinus tachycardia Cannot rule out anterior infarct, age undetermined No acute ST changes. No significant change as compared to prior, dated 01/01/2024. Imaging: XR Knee Right 3 Views Final Result IMPRESSION: Normal joint spaces and alignment. No fracture or joint effusion. CT Head w/o Contrast (Results Pending) CT Abdomen Pelvis w/o Contrast (Results Pending) Laboratory: Labs Ordered and Resulted from Time of ED Arrival to Time of ED Departure COMPREHENSIVE METABOLIC PANEL - Abnormal Result Value Sodium 138 Potassium 4.8 Carbon Dioxide (CO2) 23 Anion Gap 15 Urea Nitrogen 11.4 Creatinine 0.79 GFR Estimate >90 Calcium 9.6 Chloride 100 Glucose 94 Alkaline Phosphatase 328 (*) AST ALT 137 (*) Protein Total 8.7 (*) Albumin 4.6 Bilirubin Total 0.2 CBC WITH PLATELETS AND DIFFERENTIAL - Abnormal WBC Count 12.7 (*) RBC Count 4.93 Hemoglobin 12.9 Hematocrit 41.1 MCV 83 MCH 26.2 (*) MCHC 31.4 (*) RDW 24.6 (*) Platelet Count 387 % Neutrophils 62 % Lymphocytes 30 % Monocytes 6 % Eosinophils 1 % Basophils 0 % Immature Granulocytes 1 NRBCs per 100 WBC 0 Absolute Neutrophils 8.0 Absolute Lymphocytes 3.8 Absolute Monocytes 0.8 Absolute Eosinophils 0.1 Absolute Basophils 0.0 Absolute Immature Granulocytes 0.1 Absolute NRBCs 0.0 LIPASE - Normal Lipase 36 HCG QUALITATIVE - Normal hCG Serum Qualitative Negative AST Emergency Department Course & Assessments: Interventions: Medications HYDROmorphone (DILAUDID) tablet 4 mg (4 mg Oral $Given 01/05/24 0353) sodium chloride 0.9% BOLUS 1,000 mL ( Intravenous Restarted 01/05/24 0647) diphenhydrAMINE (BENADRYL) injection 25 mg (25 mg Intravenous $Given 01/05/24 0651) methylPREDNISolone sodium succinate (solu-MEDROL) injection 62.5 mg (62.5 mg Intravenous $Given 01/05/24 0355) HYDROmorphone (DILAUDID) tablet 4 mg (4 mg Oral $Given 01/05/24 0800) Independent Interpretation (X-rays, CTs, rhythm strip): I independently reviewed the knee XR and see no evidence for fracture. Assessments/Consultations/Discussion of Management or Tests: ED Course as of 01/05/24816Jan 05, 2024 0237 I obtained history and examined the patient as noted above. 816 I updated the patient who is requesting an IV for fluids. She is worried she will pass out again. Social Determinants of Health affecting care: Supportive friend Chronic opiate use Frequent ED visits Disposition: Care of the patient was transferred to my colleague, Dr. Cazares, pending CTs and AST. Impression & Plan Medical Decision Making: Sandi is a 38 year old woman with recent diagnosis of PE, POTS, gastroparesis, etc. who was seen in the emergency department 3 days ago and since then has been feeling unwell. She describes left flank pain radiating to her epigastrium and poor oral intake. She alleges she syncopized at the top ofstairs and fell down approximately 8 steps. She was referred to the emergency department by nurse demetra day and her friend who brought her here felt she was confused and perseverating when he picked herup. Since she has been waiting in the waiting room her confusion has cleared, in his opinion, but she has had worsening left flank and abdominal pain. Despite 9 ED visits in the last month for abdominal pain, chest pain, and syncope with 8 CT scans of chest, abdomen, head, and C-spine, she tells methis flank and abdominal pain is new and different from any she has had in the past. On examinationshe appears uncomfortable and is tachycardic. She has left upper quadrant tenderness and voluntary guarding. She also reports right knee pain with decreased range of motion though no reproducible bony tenderness. She is not confused. EKG reveals no acute ST changes or arrhythmias. Syncope is well-known to this patient with her history of POTS and she reports poor oral intake. I was planning to repeat CT of the chest for PE as shetells me she has not been taking her anticoagulants and had syncope. However, vascular access is anenormous issue in this woman and ultimately she will not undergo CT PE study as it is unlikely to place change roof bolter. She likely still has the residual small PE seen on study this week which would be treated with the anticoagulants that she should be taking as prescribed. We will plan for noncontrast CT of the abdomen and pelvis as she reports this new pain. This is pending at the end of my shift. X-ray of the right knee is without fracture or malalignment. We will include head CT given the report of confusion after her fall although she actually tells me she does not think this is necessary which is rather unusual as confusion was the primary reason she was referred to the emergency department, not her abdominal pain. Her abdominal pain was treated with her home doses of Dilaudid. I do not appreciate other evidence of trauma. We were able to get laboratory studies which reveal no kidney injury or electrolyte derangements. There is elevation in ALT at 137, increased from prior value of 88. Initial AST was unsatisfactory and repeat is pending. She has mild leukocytosis to 12.7. I suspect this is a component of hemoconcentration given her report of poor oral intake although CT will help evaluate for possible infection. She does not have evidence of biliary obstruction, pancreatitis, , or anemia. At the end of my shift, CTs are pending. She requested repeat attempts at IV placement for IV fluids which I think is reasonable. At the end of my shift her care was endorsed to my partner, Dr. Cazares,for completion of workup and safe disposition planning. Diagnosis: ICD-10-CM 1. Injury of head, initial encounter S09.90XA 2. Elevated LFTs R79.89 3. Abdominal pain, unspecified abdominal location R10.9 Scribe Disclosure: IYelitza, am serving as a scribe at 2:41 AM on 01/05/2024 to document services personally performed by Janie Arellano MD based on my observations and the provider's statements to me. 01/05/2024 Janie Arellano MD Dixson, Kylie S, MD 01/10/24 1414 OPERATOR * Luz Cazares DO - 01/04/2024 9:49 PM CST 11:21 AM 01/05/2024 Received signout from the night team. Pending imaging studies as well as LFTs. AST and ALT found candido elevated. CT head abdomen pelvis showed no acute process. Patient updated on results. She requested that her urine be checked. UA ordered. Patient also requested IV fluids. 1 L of IV fluids was given. 12:25 PM UA appear to be contaminated with 50 squamous cells. Urine culture in process. I explained to patient the results. She denies any urinary symptoms but does have prior history of urinary tract infections. I explained her she will notified if urine culture is positive. Discussed with her the plan fordischarge close follow-up with primary care doctor. Instructed her to follow-up with her PCP regarding her elevated LFTs. Discussed with her care instructions. Provided her care instructions regarding closed head injury, abdominal pain. Discussed return precautions with the patient. She stable for discharge at this time. 1:10 PM: Patient refusing to leave. States she needs more IV fluids. She is agreeable to getting to 150 cc of normal saline at this time. Requesting Benadryl. I explained her she has been in the ER for over 15 hours at this point discussed with her staying in the hospital versus going home. She states that she wants to stay out of the hospital. DO Sage Erazo Tiffani, DO 01/05/24 1226 Luz Cazares DO 01/05/24 1311 OPERATOR documented in this encounter Plan of Treatment Upcoming Encounters Date Type Department Care Team (Late st Contact Info) Description 05/09/2024 10:00 AM CDT Office Visit [facility] [address] [place] [phone] [place] [address] [address] [id number] documented as of this encounter Procedures Procedure Name Priority Date/Time Associated Diagnosis Comments ROUTINE UA WITH MICROSCOPIC REFLEX TO CULTURE STAT 01/05/2024 11:55 AM TANK OPERATOR AST STAT 01/05/2024 10:[address] ABDOMEN PELVIS W/O CONTRAST STAT 01/05/2024 10:[address] HEAD W/O CONTRAST STAT 01/05/2024 10:05 AM TANK OPERATOR XR KNEE RIGHT 3 VIEWS STAT 01/05/2024 4:41 AM TANK OPERATOR CBC WITH PLATELETS AND DIFFERENTIAL STAT 01/05/2024 3:49 AM TANK OPERATOR CBC WITH PLATELETS & DIFFERENTIAL STAT 01/05/2024 3:49 AM TANK OPERATOR LIPASE STAT 01/05/2024 3:49 AM TANK OPERATOR HCG QUALITATIVE STAT 01/05/2024 3:49 AM TANK OPERATOR COMPREHENSIVE METABOLIC PANEL STAT 01/05/2024 3:49 AM TANK OPERATOR EKG 12-LEAD, TRACING ONLY STAT 01/04/2024 9:54 PM TANK OPERATOR documented in this encounter Results * (ABNORMAL) UA with Microscopic reflex to Culture (01/05/2024 11:55 AM TANK OPERATOR) Color Urine Yellow Colorless, Straw, Light Yellow, Yellow 01/05/2024 12:14 PM TANK OPERATOR LABORATORY Appearance Urine Slightly Cloudy(A) Clear 01/05/2024 12:14 PM TANK OPERATOR LABORATORY Glucose Urine Negative Negative mg/dL 01/05/2024 12:14 PM TANK OPERATOR LABORATORY Bilirubin Urine Negative Negative 12:14 PM TANK OPERATOR LABORATORY Ketones Urine Negative Negative mg/dL 01/05/2024 12:14 PM [facility] Specific [place] Urine 1.026 1.003 - 1.035 01/05/2024 12:14 PM TANK OPERATOR LABORATORY Blood Urine Negative Negative 01/05/2024 12:14 PM [facility] pH Urine 5.5 5.0 - 7.0 01/05/2024 12:14 PM [facility] Protein Albumin Urine 30(A) Negative mg/dL 01/05/2024 12:14 PM TANK OPERATOR LABORATORY Urobilinogen Urine Normal Normal, 2.0 mg/dL 01/05/2024 12:14 PM [facility] Nitrite Urine Negative Negative 01/05/2024 12:14 PM [facility] Leukocyte Esterase Urine Small(A) Negative 01/05/2024 12:14 PM [facility] Mucus Urine Present(A) None Seen /LPF 01/05/2024 12:14 PM TANK OPERATOR LABORATORY RBC Urine 1 <=2 /HPF 01/05/2024 12:14 PM [facility] WBC Urine 5 <=5 /HPF 01/05/2024 12:14 PM [facility] Squamous Epithelials Urine 50(H) <=1 /HPF 01/05/2024 12:14 PM [facility] Hyaline Casts Urine 7(H) <=2 /LPF 01/05/2024 12:14 PM [facility] Urine MID-STREAM URINE SPECIMEN / Unknown Non-blood Collection / Unknown 01/05/2024 11:55 AM TANK OPERATOR 01/05/2024 12:09 PM TANK OPERATOR Narrative LABORATORY - 01/05/2024 12:14 PM TANK OPERATOR Urine Culture not indicated Luz Cazares DO LAB - URINE ORDERABL ES LABORATORY [facility] [address] 1[address] floor, [address] [place] [address], [facility] [phone] * (ABNORMAL) AST (01/05/2024 10:42 AM TANK OPERATOR) AST 350(H) 0 - 45 U/L 01/05/2024 11:11 AM [facility] Blood STRUCTURE OF LEFT UPPER LIMB / Unknown Venipuncture / Unknown 01/05/2024 10:42 AM TANK OPERATOR 01/05/2024 10:46 AM TANK OPERATOR Janie Arellano MD LAB - BLOOD ORDERABL ES LABORATORY [facility] [address], [address] [place] [address], [facility] [phone] * CT Abdomen Pelvis w/o Contrast (01/05/2024 10:06 AM TANK OPERATOR) Anatomical Region Laterality Modality Abdomen/Pelvis, SUBRAD CT ESSIE DY, UMP CT ABDOMEN PELVIS, RAD CT Computed Tomography Impressions 01/05/2024 10:37 AM TANK OPERATOR IMPRESSION: No acute process demonstrated. BECKA MOBLEY MD Narrative 01/05/2024 10:[address] ABDOMEN PELVIS WITHOUT CONTRAST 01/05/2024 10:06 AM CLINICAL HISTORY: Abdominal pain. ??Left upper quadrant and epigastric pain, fall down [...] aorta. MUSCULOSKELETAL: No frankly destructive bony lesions. Procedure Note Becka Mobley MD - 01/05/2024 CT ABDOMEN PELVIS WITHOUT CONTRAST 01/05/2024 10:06 [...] destructive bony lesions. IMPRESSION: No acute process demonstrated. BECKA MOBLEY MD Janie Arellano MD IM CT ORDERABLES * CT Head w/o Contrast (01/05/2024 10:05 AM TANK OPERATOR) Anatomical Region Laterality Modality Head, SUBRAD CT NEURO, SUBRA D CT NEURO, UMP CT NEURO, RAD CT Computed Tomography Impressions 01/05/2024 10:19 AM TANK OPERATOR IMPRESSION: ?? No evidence of acute intracranial hemorrhage, mass, or herniation. JONNA MAJANO MD Narrative 01/05/2024 10:[address] SCAN OF THE HEAD WITHOUT CONTRAST ?? 01/05/2024 10:05 AM HISTORY: fall, confusion TECHNIQUE: ??Axial images of the head and coronal reformations [...] bones of the skull base appear intact. Procedure Note Jonna Majano MD - 01/05/2024 CT SCAN OF THE HEAD WITHOUT CONTRAST [...] bones of the skull base appear intact. IMPRESSION: No evidence of acute intracranial hemorrhage, mass, or herniation. JONNA MAJANO MD Janie Arellano MD [facility] [place] * XR Knee Right 3 Views (01/05/2024 4:41 AM TANK OPERATOR) Anatomical Region Laterality Modality Thigh, Knee, Leg Right Digital Radiogr aphy 01/05/2024 4:41 AM TANK OPERATOR Impressions 01/05/2024 4:47 AM TANK OPERATOR IMPRESSION: Normal joint spaces and alignment. No fracture or joint effusion. Narrative 01/05/2024 4:47 AM TANK OPERATOR EXAM: XR KNEE RIGHT 3 VIEWS LOCATION: [facility] DATE: 01/05/2024 INDICATION: fall, pain COMPARISON: None. Procedure Note Angel Luis Sanchez MD - 01/05/2024 EXAM: XR KNEE RIGHT 3 VIEWS LOCATION: [facility] DATE: 01/05/2024 INDICATION: fall, pain COMPARISON: None. IMPRESSION: Normal joint spaces and alignment. No fracture or jointeffusion. Janie Arellano MD [facility] ORDERABLES * (ABNORMAL) CBC with platelets and differential (01/05/2024 3:49 AM TANK OPERATOR) WBC Count 12.7(H) 4.0 - 11.0 10e3/uL 01/05/2024 4:11 AM TANK OPERATOR LABORATORY RBC Count 4.93 3.80 - 5.20 10e6/uL 01/05/2024 4:11 AM TANK OPERATOR LABORATORY Hemoglobin 12.9 11.7 - 15.7 g/dL 01/05/2024 4:11 AM [facility] Hematocrit 41.1 35.0 - 47.0 % 01/05/2024 4:11 AM [facility] MCV 83 78 - 100 fL 01/05/2024 4:11 AM [facility] MCH 26.2(L) 26.5 - 33.0 pg 01/05/2024 4:11 AM [facility] MCHC 31.4(L) 31.5 - 36.5 g/dL 01/05/2024 4:11 AM [facility] RDW 24.6(H) 10.0 - 15.0 % 01/05/2024 4:11 AM [facility] Platelet Count 387 150 - 450 10e3/uL 01/05/2024 4:11 AM [facility] % Neutrophils 62 % 01/05/2024 4:11 AM [facility] % Lymphocytes 30 % 01/05/2024 4:11 AM [facility] % Monocytes 6 % 01/05/2024 4:11 AM [facility] % Eosinophils 1 % 01/05/2024 4:11 AM [facility] % Basophils 0 % 01/05/2024 4:11 AM [facility] % Immature Granulocytes 1 % 01/05/2024 4:11 AM [facility] NRBCs per 100 WBC 0 <1 /100 024 4:11 AM [facility] Absolute Neutrophils 8.0 1.6 - 8.3 10e3/uL 01/05/2024 4:11 AM [facility] Absolute Lymphocytes 3.8 0.8 - 5.3 10e3/uL 01/05/2024 4:11 AM [facility] Absolute Monocytes 0.8 0.0 - 1.3 10e3/uL 01/05/2024 4:11 AM [facility] Absolute Eosinophils 0.1 0.0 - 0.7 10e3/uL 01/05/2024 4:11 AM [facility] Absolute Basophils 0.0 0.0 - 0.2 10e3/uL 01/05/2024 4:11 AM [facility] Absolute Immature Granulocytes 0.1 <=0.4 10e3/uL 01/05/2024 4:11 AM [facility] Absolute NRBCs 0.0 10e3/uL 01/05/2024 4:11 AM [facility] Blood BLOOD SPECIMEN / Unknown Venipuncture / Unknown 01/05/2024 3:49 AM TANK OPERATOR 01/05/2024 4:07 AM TANK OPERATOR Janie Arellano MD LAB - BLOOD ORDERABL ES LABORATORY [facility] [address] 1[address] floor, [address] [place] [address], [place] [phone] * HCG qualitative Blood (01/05/2024 3:49 AM TANK OPERATOR) hCG Serum Qualitative Negative Negative [place] 01/05/2024 4:25 AM TANK OPERATOR LABORATORY Comment:This test is for scr eening purposes. Results should be interpreted along with the clinical picture. Confirmation testing is available if warranted by ordering [id number], HCG Quantitative . Blood BLOOD SPECIMEN / Unknown Venipuncture / Unknown 01/05/2024 3:49 AM TANK OPERATOR 01/05/2024 4:07 AM TANK OPERATOR Janie Arellano MD LAB - BLOOD ORDERABL ES Performing Organization Address City/[facility]/ZIP Co de Phone Number LABORATORY [facility] [address] 1[address], [address] [place] [address], [facility] [phone] * Lipase (01/05/2024 3:49 AM TANK OPERATOR) Pathologist [facility] Lipase 36 13 - 60 U/L 01/05/2024 4:30 AM TANK OPERATOR LABORATORY Blood BLOOD SPECIMEN / Unknown Venipuncture / Unknown 01/05/2024 3:49 AM TANK OPERATOR 01/05/2024 4:07 AM TANK OPERATOR Janie Arellano MD LAB - BLOOD ORDERABL ES LABORATORY [facility] [address], [address] [place] [address], [place] [phone] * (ABNORMAL) Comprehensive metabolic panel (01/05/2024 3:49 AM TANK OPERATOR) [facility] Sodium 138 135 - 145 mmol/L 01/05/2024 4:31 AM [facility] Comment:Reference intervals for this test were updated on 08/24/2023 to more accurately reflect our healthy population. There may be differences in the flagging of prior results with similar values performed with this method. Interpretation of those prior results can be made in the context of the updated reference intervals. Potassium 4.8 3.4 - 5.3 mmol/L 01/05/2024 4:31 AM [facility] Carbon Dioxide (CO2) 23 22 - 29 mmol/L 01/05/2024 4:31 AM [facility] Anion Gap 15 7 - 15 mmol/L 01/05/2024 4:31 AM [facility] Urea Nitrogen 11.4 6.0 - 20.0 mg/dL 01/05/2024 4:31 AM [facility] Creatinine 0.79 0.51 - 0.95 mg/dL 01/05/2024 4:31 AM [facility] GFR Estimate >90 >60 mL/min/1. 73m2 01/05/2024 4:31 AM [facility] Calcium 9.6 8.6 - 10.0 mg/dL 01/05/2024 4:31 AM [facility] Chloride 100 98 - 107 mmol/L 01/05/2024 4:31 AM [facility] Glucose 94 70 - 99 mg/dL 01/05/2024 4:31 AM [facility] Alkaline Phosphatase 328(H) 40 - 150 U/L 01/05/2024 4:31 AM [facility] Comment:Reference intervals for this test were updated on 10/12/2023 to more accurately reflect our healthy population. There may be differences in the flagging of prior results with similar values performed with this method. Interpretation of those prior results can be made in the context of the updated reference intervals. AST 01/05/2024 4:31 AM [facility] Comment: Unsatisfactory specimen - hemolyzed Reference intervals for this test were updated on 05/10/2023 to more accurately reflect our healthy population. There may be differences in the flagging of prior results with similar values performed with this method. Interpretation of those prior results can be made in the context of the updated reference intervals. ALT 137(H) 0 - 50 U/L 01/05/2024 4:31 AM [facility] Comment:Reference intervals for this test were updated on 05/10/2023 to more accurately reflect our healthy population. There may be differences in the flagging of prior results with similar values performed with this method. Interpretation of those prior results can be made in the context of the updated reference intervals. Protein Total 8.7(H) 6.4 - 8.3 g/dL 01/05/2024 4:31 AM [facility] Albumin 4.6 3.5 - 5.2 g/dL 01/05/2024 4:31 AM [facility] Bilirubin Total 0.2 <=1.2 mg/dL 01/05/2024 4:31 AM [facility] Blood BLOOD SPECIMEN / Unknown Venipuncture / Unknown 01/05/2024 3:49 AM TANK OPERATOR 01/05/2024 4:07 AM [facility] Janie Arellano MD LAB - BLOOD ORDERABL ES LABORATORY [facility] [address], [address] [place] [address], [facility] [phone] * EKG 12-lead, tracing only (01/04/2024 9:54 PM [facility]) Systolic Blood Pressure mmHg RADIOLOGY RESULTS Diastolic Blood Pressure mmHg RADIOLOGY RESULTS Ventricular Rate 128 BPM RAD IOLOGY RESULTS Atrial Rate 128 BPM RADIOLOG Y RESULTS MD Interval 144 ms RADIOLOG Y RESULTS QRS Duration 64 ms RADIOLO GY RESULTS QT 282 ms RADIOLOGY RESULTS QTc 411 ms RADIOLOGY RESULTS P Swink 34 degrees RADIOLOGY RESULTS R AXIS -11 degrees RADIOLOGY RESULTS T Swink 25 degrees RADIOLOGY RESULTS Interpretation ECG Sinus tachycardia Cannot rule out Anterior infarct , age undetermined Abnormal ECG When compared with ECG of 01-JAN-2024 16:46, No significant change was found Confirmed by GENERATED REPORT, COMPUTER ([id number]), commissioning editor Leela Best ([id number]) on 01/05/2024 4:43:47 AM Also confirmed by GENERATED REPORT, COMPUTER ([id number]), commissioning editor Bridget Mehta ([id number]) ??on 01/05/2024 11:05:05 AM RADIOLOGY RESULTS 01/04/2024 9:54 PM TANK OPERATOR 01/05/2024 11:05 AM TANK OPERATOR Melissa Hernandez MD ECG ORDERABLES RADIOLOGY RESULTS documented in this encounter Visit Diagnoses Diagnosis Injury of head, initial encounter Elevated LFTs Other abnormal blood chemistry Abdominal pain, unspecified abdominal location documented in this encounter Administered Medications Inactive Administered Medications - up to 3 most recent administrations Medication Order MAR Action Action Date Dose Rate Site diphenhydrAMINE (BENADRYL) injection 25 mg 25 mg, Intravenous, ONCE, On Wed01/05/24 at 0250, For 1 dose, Protect from light. $Given 01/05/2024 6:51 AM TANK OPERATOR 25 mg diphenhydrAMINE (BENADRYL) injection 25 mg 25 mg, Intravenous, ONCE, On Wed01/05/24 at 1315, For 1 dose, Protect from light. $Given 01/05/2024 1:23 PM TANK OPERATOR 25 mg HYDROmorphone (DILAUDID) tablet 4 mg 4 mg, Oral, ONCE, On Wed01/05/24 at 0250, For 1 dose $Given 01/05/2024 3:53 AM TANK OPERATOR 4 mg HYDROmorphone (DILAUDID) tablet 4 mg 4 mg, Oral, ONCE, On Wed01/05/24 at 0800, For 1 dose $Given 01/05/2024 8:00 AM TANK OPERATOR 4 mg HYDROmorphone (DILAUDID) tablet 4 mg 4 mg, Oral, ONCE, On Wed01/05/24 at 1210, For 1 dose $Given 01/05/2024 12:16 PM TANK OPERATOR 4 mg LORazepam (ATIVAN) tablet 1 mg 1 mg, Oral, ONCE, On Wed01/05/24 at 1025, For 1 dose $Given 01/05/2024 11:05 AM TANK OPERATOR 1 mg methylPREDNISolone sodium succinate (solu-MEDROL) injection 62.5 mg 62.5 mg (rounded from 60 mg), Intravenous, ONCE, On Wed01/05/24 at 0250, For 1 dose, Doses greater than or equal to 1000 mg administer over 60 minutes Doses greater than or equal to 500 mg administer over 30-60 minutes Doses greater than or equal to 250 mg administer over 15-30 minutes Doses less than or equal to 125 mg IVP over 3-5 minutes $Given 01/05/2024 3:55 AM TANK OPERATOR 62.5 mg sodium chloride 0.9% BOLUS 1,000 mL Intravenous, 1,000 mL, ONCE, at 1,000 mL/hr, Administer over 1 Hours, On Wed01/05/24 at 0250, For 1 dose Restarted 01/05/2024 6:47 AM TANK OPERATOR 1000 mL/hr $New Bag 01/05/2024 3:50 AM TANK OPERATOR 1,000 mLs 1000 mL/hr sodium chloride 0.9% BOLUS 250 mL Intravenous, 250 mL, ONCE, at 250 mL/hr, Administer over 1 Hours, On Wed01/05/24 at 1255, For 1 dose $New Bag 01/05/2024 1:22 PM TANK OPERATOR 250 mLs 250 mL/hr documented in this encounter Active and Recently Administered Medications Times are shown in TANK OPERATOR. Scheduled Medication Order 01/03/2024 01/04/2024 01/05/2024 diphenhydrAMINE (BENADRYL) injection 25 mg (COMPLETED) 25 mg, Intravenous, ONCE, On Wed01/05/24 at 0250, For 1 dose, Protect from light. 0651 ($Given - Provi rosita: Casey Duncan RN - Comment: Multiple IV insertion.) diphenhydrAMINE (BENADRYL) injection 25 mg (COMPLETED) 25 mg, Intravenous, ONCE, On Wed01/05/24 at 1315, For 1 dose, Protect from light. 1323 ($Given - Provi rosita: Jonna Pimentel RN) HYDROmorphone (DILAUDID) tablet 4 mg (COMPLETED) 4 mg, Oral, ONCE, On Wed01/05/24 at 0250, For 1 dose 0353 ($Given - Provi rsoita: Casey Duncan RN) HYDROmorphone (DILAUDID) tablet 4 mg (COMPLETED) 4 mg, Oral, ONCE, On Wed01/05/24 at 0800, For 1 dose 0800 ($Given - Provi rosita: Jonna Pimentel RN) HYDROmorphone (DILAUDID) tablet 4 mg (COMPLETED) 4 mg, Oral, ONCE, On Wed01/05/24 at 1210, For 1 dose 1216 ($Given - Provi rosita: Jonna Pimentel RN) iopamidol (ISOVUE-370) solution 101 mL 101 mL, Intravenous, ONCE, On Wed01/05/24 at 0440, For 1 dose, Premedicated 0440 (Canceled Entry - Provider: Orders Generic Provider - Comment: Automatically canceled at discontinue of medication order) LORazepam (ATIVAN) tablet 1 mg (COMPLETED) 1 mg, Oral, ONCE, On Wed01/05/24 at 1025, For 1 dose 1105 ($Given - Provi rosita: Jonna Pimentel RN) methylPREDNISolone sodium succinate (solu-MEDROL) injection 62.5 mg (COMPLETED) 62.5 mg (rounded from 60 mg), Intravenous, ONCE, On Wed01/05/24 at 0250, For 1 dose, Doses greater than or equal to 1000 mg administer over 60 minutes Doses greater than or equal to 500 mg administer over 30-60 minutes Doses greater than or equal to 250 mg administer over 15-30 minutes Doses less than or equal to 125 mg IVP over 3-5 minutes 0355 ($Given - Provi rosita: Casey Duncan RN) Saline Intravenous, 100 mL, ONCE, On Wed01/05/24 at 0440, For 1 dose, This entry is for use by Radiology to intermittently used as a flush in patients receiving a CT scan. 0440 (Canceled Entry - Provider: Orders Generic Provider - Comment: Automatically canceled at discontinue of medication order) sodium chloride 0.9% BOLUS 1,000 mL (COMPLETED) Intravenous, 1,000 mL, ONCE, at 1,000 mL/hr, Administer over 1 Hours, On Wed01/05/24 at 0250, For 1 dose 0350 ($New Bag - Pro vider: Casey Duncan RN)0410 (Paused - Provider: Casey Duncan RN)0647 (Restarted - Provider: Casey Duncan RN)1138 (Stopped - Provider: Jonna Pimentel RN) sodium chloride 0.9% BOLUS 250 mL (COMPLETED) Intravenous, 250 mL, ONCE, at 250 mL/hr, Administer over 1 Hours, On Wed01/05/24 at 1255, For 1 dose 1322 ($New Bag - Pro vider: Jonna Pimentel RN)1411 (Stopped - Provider: Jonna Pimentel RN) 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 Assessment Noted Time PHQ-9 Depression Total Score: 3 05/27/20 23 5:00 PM CDT documented as of this encounter Care Teams Rod Placer Relationship Specialty [place] [address] [address] PCP - General Family Medicine 04/22/23 [place] [address] [place] [address] Assigned Pain Medication Provider 12/07/22 [place] [address] [address] Assigned PCP 01/23/23 [place] [address] [place] [address] Assigned Musculoskeletal Provider 01/23/23 Gregorio Dalton PA-C [address] [place] [address] Assigned Surgical Provider 05/22/23 Kingsley Garcia MD [address] [place] [address] Assigned Heart and Vascular Provider 08/07/23 [place] [address] [address] Family Medicine 09/10/23 Master Shea PA-C [id number] [place] [address] Physician [facility]oom [facility] Gastroenterology 09/10/23 Allyssa Justice MD [facility] [address] [place] [id number] Hematology & Oncology 12/10/23 Genaro Christian MD [address] [place], [place] [id number] Cardiovascular Disease 12/22/23 Master Shea PA-C [id number] [place] [address] Assigned Gastroenterology Provider 12/23/23 documented as of this encounter
--- OUTSIDE RECORDS SUMMARY | 2024-03-25 18:20 | XMS_ITS | Encounter Summary ---
Author Name Unknown Organization [facility] Address [address] [place] [address] Care Team Providers Care Space Physicist Name Role Phone Segundo Mcclelland MD Unavailable [phone] Segundo Mcclelland MD Unavailable [phone] Qamar Jackson MD Unavailable Segundo Mcclelland MD Primary Care Provider + Gregorio Dalton PA-C Unavailable Kingsley Garcia MD Unavailable [phone] Segundo Mcclelland MD Unavailable Master Shea PA-C Unavailable Allyssa Justice MD Unavailable [phone] Genaro Christian MD Unavailable [phone] Master Shea PA-C Unavailable Reason for Visit * Reason Comments Abdominal Pain Loss of Consciousness Encounter Details Date Type Department Care Team (Late st Contact Info) Description 01/01/2024 3:32 PM VP SECURITIES - 01/01/2024 8:10 PM VP SECURITIES [facility] Emergency Dept [address] [place] [address] Luz Cazares DO [facility] [address] [place] [id number] Chest pain, unspecified type; Single subsegmental pulmonary [...] Sign Reading Time Taken Comments Blood Pressure 143/92 01/01/2024 8:05 PM VP SECURITIES Pulse 112 01/01/2024 8:05 PM VP SECURITIES Temperature 37.2 ??C (98.9 ??F) 01/01/2024 3:35 PM CS T Respiratory Rate 18 01/01/2024 8:09 PM VP SECURITIES Oxygen Saturation 100% 01/01/2024 8:05 PM VP SECURITIES Inhaled Oxygen Concentration - - Weight - - Height - - Body Mass Index - - documented in this encounter Discharge Instructions * Discharge Instructions* Luz Cazares DO - 01/01/2024 7:[address] Your [address] scan showed that most of the blood clots had resolved however there is a small area on the right side and still has a clot in the lung. You need to be on anticoagulation. Please take the Xarelto as prescribed unless you are able to fill your Eliquis prescription. Follow-up with your primary care doctor Return to the ER for any worsening or concerning symptoms SECURITIES * Attachments The following attachments cannot be sent through Care Everywhere. * Chest Pain ([place]) documented in this encounter Medications at Time [...] anxiety naloxone (NARCAN) 4 MG/0.1ML nasal spray [place] 4 mg into one nostril alternating nostrils once as needed for opioid reversal 06/28/2023 zolpidem (AMBIEN) 10 MG tablet Take 10 mg by mouth At Bedtime 12/17/2022 Rivaroxaban ANTICOAGULANT 15 & 20 MG TBPK Starter Therapy Pack Take 15 mg by mouth 2 times daily (with meals) for 21 days, THEN 20 mg daily with food for 9 days. 51 each 01/01/2024 01/10/2024 apixaban ANTICOAGULANT (ELIQUIS) 5 MG tabletIndications:Mult iple [...] as of this encounter ED Notes * Zion Pierre RN - 01/01/2024 7:18 PM CST Pt returns from CT scan with continues coughing, c/o itchiness in her throat, audible wheezing heard across the room, mild inhalation wheezing on b/l lung sound auscultation. Hives and redness noted across chest and arm and face. Coarse voice, unable to complete full sentence without coughing. Dr. Cazares called for emergency anaphasic assessment, meds given per verbal order with read back. Pt ABC stable at the moment SECURITIES * Zion Pierre RN - 01/01/2024 6:21 PM CST Pt request to have KPO fluid connect to her IV because she is concern IV will clot within an hourI'm so anxious about that. Consult MD, Dr. Cazares is comfortable with 50ml/hr fluid . SECURITIES * Zion Pierre RN - 01/01/2024 5:20 PM CST Pt request to have home dilaudid med given at ED, stated it's due now. If you guys can't give it to me, I can call someone bring it. MD informed, given per order. SECURITIES * Norma Goodman RN - 01/01/2024 3:31 PM CST Images from the original note were not included. Pt presents to the ED with complaint of syncopal episode earlier today. Pt states she was walking down steps and blacked out. Pt states she fell down 4 steps. She doesn't know if she hit her head. Ptstates she is supposed to be taking a blood thinner, but the pharmacy won't fill it. She states shehad bilateral Pes a few weeks ago. Pt states she came to the ED last week and was told syncope was not life threatening and did not get an IV even though she needed fluids. Pt nauseous in triage. Triage Assessment (Adult) Row Name 01/01/24 1530 Triage Assessment Airway WDL WDL Respiratory WDL Respiratory WDL WDL Skin Circulation/Temperature WDL Skin Circulation/Temperature WDL X pale, dry mucous membranes Cardiac WDL Cardiac WDL X;rhythm Pulse Rate & Regularity tachycardic Peripheral/Neurovascular WDL Peripheral Neurovascular WDL WDL Cognitive/Neuro/Behavioral WDL Cognitive/Neuro/Behavioral WDL WDL SECURITIES * Luz Cazares DO - 01/01/2024 3:15 PM CST History Chief Complaint: Abdominal Pain and Loss of Consciousness The history is provided by the patient. Sandi Lopez is a 38 year old female with a history of borderline personality disorder, gastroparesis, and hypertension who presents to the ED for evaluation after a syncopal episode. The patient was seen here on 12/20 for a similar syncopal episode. Today, she had a syncopal event around 1:30 pm. She went to urgent care and was referred to the ED for further workup. The patient denies fevers. She notes that it hurts to take a deep breath, but denies increased work of breathing. The patient reports that she hasn't taken the eliquis that she is prescribed for the past 2 weeks because herpharmacy won't fill it. She states that she was diagnosed with pulmonary embolisms a month ago. Independent Historian: None - Patient Only Review of External Notes: Reviewed prior CAT scans in early November she was diagnosed with a recurrent pulmonary embolism. Medications: Eliquis Diphenhydramine Doxycycline Epinephrine Gabapentin Hydromorphone Naloxone Pantoprazole Zolpidem Mirtazapine Past Medical History: Anemia Atrial flutter Dysthymic disorder GERD Gastroparesis Hypertension Asthma Nephrolithiasis Kathleen-Mustafa tear Mesenteric lymphadenitis Opoid dependence PTSD PE POTS CANELO Bipolar 1 disorder Borderline personality disorder Past Surgical History: Adenoidectomy Ankle surgery Appendectomy Back surgery Cholecystectomy ERCP Hysterectomy PICC placement Port placement and removal Oophorectomy Tonsillectomy and adenoidectomy Tubal ligation Physical Exam Patient Vitals for the past 24 hrs: BP Temp Temp src Pulse Resp SpO2 01/01/242008 -- -- -- -- 18 -- 01/01/242004 (!) 143/92 -- -- 112 -- 100 % 01/01/242003 -- -- -- -- -- 99 % 01/01/242000 -- -- -- -- -- 100 % 01/01/241945 -- -- -- -- -- 95 % 01/01/241930 -- -- -- -- -- 99 % 01/01/241915 -- -- -- -- -- 98 % 01/01/24 1900 (!) 155/111 -- -- 112 -- 94 % 01/01/24 1830 (!) 151/93 -- -- 112 -- 98 % 01/01/24 1600 (!) 138/108 -- -- 112 -- 100 % 01/01/24 1535 (!) 126/110 98.9 ??F (37.2 ??C) Oral 117 20 100 % Physical Exam Vitals reviewed. Constitutional: General: She is not in acute distress. Appearance: She is not ill-appearing. HENT: Head: Normocephalic and atraumatic. Eyes: Extraocular Movements: Extraocular movements intact. Cardiovascular: Rate and Rhythm: Normal rate and regular rhythm. Pulmonary: Effort: Pulmonary effort is normal. No respiratory distress. Breath sounds: Normal breath sounds. No wheezing. Abdominal: Palpations: Abdomen is soft. Tenderness: There is no abdominal tenderness. There is no guarding. Musculoskeletal: Cervical back: Normal range of motion. Skin: General: Skin is warm and dry. Neurological: Mental Status: She is alert and oriented to person, place, and time. GCS: GCS eye subscore is 4. GCS verbal subscore is 5. GCS motor subscore is 6. Psychiatric: Behavior: Behavior normal. Emergency Department Course ECG ECG taken at 1646, ECG read at 1653 Sinus tachycardia Low voltage QRS Borderline ECG Rate 111 bpm. DC interval 156 ms. QRS duration 66 ms. QT/QTc 320/435 ms. P-R-T axes 54 42 58. Imaging: CT Chest Pulmonary Embolism w Contrast Final Result IMPRESSION: 1. Most of the emboli seen on the prior exam have resolved. There remains a small branch embolus posterior segmental pulmonary artery in the right lung base where there was previous PE. No evidence for right heart strain. Laboratory: Labs Ordered and Resulted from Time of ED Arrival to Time of ED Departure CBC WITH PLATELETS AND DIFFERENTIAL - Abnormal Result Value WBC Count 10.3 RBC Count 4.63 Hemoglobin 12.3 Hematocrit 39.0 MCV 84 MCH 26.6 MCHC 31.5 RDW 24.4 (*) Platelet Count 361 % Neutrophils 69 % Lymphocytes 25 % Monocytes 5 % Eosinophils 1 % Basophils 0 % Immature Granulocytes 0 NRBCs per 100 WBC 0 Absolute Neutrophils 7.1 Absolute Lymphocytes 2.5 Absolute Monocytes 0.5 Absolute Eosinophils 0.1 Absolute Basophils 0.0 Absolute Immature Granulocytes 0.0 Absolute NRBCs 0.0 INR - Normal INR 1.00 PARTIAL THROMBOPLASTIN TIME - Normal aPTT 27 BASIC METABOLIC PANEL - Normal Sodium 138 Potassium 4.4 Chloride 103 Carbon Dioxide (CO2) 22 Anion Gap 13 Urea Nitrogen 9.5 Creatinine 0.76 GFR Estimate >90 Calcium 9.2 Glucose 93 TROPONIN T, HIGH SENSITIVITY - Normal Troponin T, High Sensitivity 7 MAGNESIUM - Normal Magnesium 2.0 NT PROBNP INPATIENT - Normal N terminal Pro BNP Inpatient 73 Emergency Department Course & Assessments: Interventions: Medications diphenhydrAMINE (BENADRYL) injection 25 mg (25 mg Intravenous $Given 01/01/241829) HYDROmorphone (DILAUDID) tablet 4 mg (4 mg Oral $Given 01/01/241749) apixaban ANTICOAGULANT (ELIQUIS) tablet 5 mg (5 mg Oral $Given 01/01/241749) CT Scan Flush (89 mLs Intravenous $Given 01/01/241853) iopamidol (ISOVUE-370) solution 500 mL (71 mLs Intravenous $Given 01/01/241853) methylPREDNISolone sodium succinate (solu-MEDROL) injection 125 mg (125 mg Intravenous $Given 01/01/241913) diphenhydrAMINE (BENADRYL) injection 25 mg (25 mg Intravenous $Given 01/01/241913) ipratropium - albuterol 0.5 mg/2.5 mg/3 mL (DUONEB) neb solution 3 mL (3 mLs Nebulization $Given 01/01/241913) sodium chloride 0.9% BOLUS 1,000 mL (0 mLs Intravenous Stopped 01/01/242000) Consultations/Discussion of Management or Tests: ED Course as of 01/01/242031 Sat Jan 01, 2024 1623 I obtained history and examined the patient as noted above. 1802 Troponin T, High Sensitivity: 7 1927 I rechecked the patient and explained findings. 1952 I rechecked the patient and explained findings. Most of her emboli seen on the prior exam haveresolved. Social Determinants of Health affecting care: None Disposition: The patient was discharged. Impression & Plan Medical Decision Makin-year-old female presenting today with episode of LOC, chest pain. Sent in by urgent care for concern for recurrent pulmonary embolism as patient has been off her Eliquis for the last 2 weeks. States that she said she is feeling the Eliquis at pharmacy. She is hemodynamically stable noted be tachycardic on arrival here. She reports right-sided chest pain. I discussed with the patient need for repeat scan. Reviewed her chart she had multiple CAT scans recently. She verbalized understanding andagreement to pursue the CAT scan today. After the CT with contrast she did have some increased workof breathing was given a DuoNeb and repeat Benadryl and Solu-Medrol. Her symptoms resolved. Blood work including troponin BNP within normal limits. CT scan showed mostly resolved emboli however therewas a persistent emboli in the right side. Patient updated on results. Discussed plan for anticoagulation. Given her issues refilling the Eliquis prescription for the last 2 weeks discussed with her trying Xarelto at this time. She was agreeable to that plan. States she will follow-up with her primary care doctor. Discussed with her care instructions and return precautions. All questions and concerns addressed at this time. Diagnosis: ICD-10-CM 1. Chest pain, unspecified type R07.9 2. Single subsegmental pulmonary embolism without acute cor pulmonale (H) I26.93 Discharge Medications: Discharge Medication List as of 01/01/2024 8:01 PM START taking these medications Details Rivaroxaban ANTICOAGULANT 15 & 20 MG TBPK Starter Therapy Pack Take 15 mg by mouth 2 times daily (with meals) for 21 days, THEN 20 mg daily with food for 9 days., Disp-51 each, R-0, Local Print Scribe Disclosure: I, Israel Connell, am serving as a scribe at 4:33 PM on 01/01/2024 to document services personally performed by Luz Cazares DO, based on my observations and the provider's statements to me. 01/01/2024 Luz Cazares DO Doan, Tiffani, DO 01/01/242032 SECURITIES documented in this encounter Plan of Treatment Upcoming Encounters Date Type Department Care Team (Late st Contact Info) Description 05/09/2024 10:00 AM CDT Office Visit [facility] [id number] [place] [address] [place] [address] [address] [place] [id number] documented as of this encounter Procedures Procedure Name Priority Date/Time Associated Diagnosis Comments CT CHEST PULMONARY EMBOLISM W CONTRAST STAT 01/01/2024 7:04 PM VP SECURITIES EKG 12-LEAD, TRACING ONLY STAT 01/01/2024 4:46 PM VP SECURITIES CBC WITH PLATELETS AND DIFFERENTIAL STAT 01/01/2024 4:40 PM VP SECURITIES TROPONIN T, HIGH SENSITIVITY STAT 01/01/2024 4:40 PM VP SECURITIES CBC WITH PLATELETS & DIFFERENTIAL STAT 01/01/2024 4:40 PM VP SECURITIES INR STAT 01/01/2024 4:40 PM VP SECURITIES PARTIAL THROMBOPLASTIN TIME STAT 01/01/2024 4:40 PM VP SECURITIES NT PROBNP INPATIENT STAT 01/01/2024 4 :40 PM VP SECURITIES MAGNESIUM STAT 01/01/2024 4:40 PM VP SECURITIES BASIC METABOLIC PANEL STAT 01/01/2024 4:40 PM VP SECURITIES documented in this encounter Results * CT Chest Pulmonary Embolism w Contrast (01/01/2024 7:04 PM VP SECURITIES) Anatomical Region Laterality Modality Chest, SUBRAD CT BODY, UMP CT CHEST Computed Tomography 01/01/2024 7:04 PM VP SECURITIES Impressions 01/01/2024 8:04 PM VP SECURITIES IMPRESSION: 1. ??Most of the emboli seen on the prior exam have resolved. There remains a small branch embolus posterior segmental pulmonary artery in the right lung base where there was previous PE. No evidence for right heart strain. Narrative 01/01/2024 8:04 PM VP SECURITIES EXAM: CT CHEST PULMONARY EMBOLISM W CONTRAST LOCATION: [facility] DATE: 01/01/2024 INDICATION: History of PE off [...] CT CHEST PULMONARY EMBOLISM W CONTRAST LOCATION: [facility] DATE: 01/01/2024 INDICATION: History of PE off [...] PE. No evidence for right heartstrain. Luz VILLASEÑOR CT ORDERABLES * EKG 12-lead, tracing only (01/01/2024 4:46 PM VP SECURITIES) Pathologist [facility] Systolic Blood Pressure mmHg RADIOLOGY RESULTS Diastolic Blood Pressure mmHg RADIOLOGY RESULTS Ventricular Rate 111 BPM RAD IOLOGY RESULTS Atrial Rate 111 BPM RADIOLOG Y RESULTS DC Interval 156 ms RADIOLOG Y RESULTS QRS Duration 66 ms RADIOLO GY RESULTS QT 320 ms RADIOLOGY RESULTS QTc 435 ms RADIOLOGY RESULTS P [place] 54 degrees RADIOLOGY RESULTS R AXIS 42 degrees RADIOLOGY RESULTS T [place] 58 degrees RADIOLOGY RESULTS Interpretation ECG Sinus tachycardia Low voltage QRS Borderline ECG When compared with ECG of 24-DEC-2023 21:27, T wave inversion no longer evident in Inferior leads RADIOLOGY RESULTS 01/01/2024 4:46 PM VP SECURITIES Luz Sagekrystal [facility]MAIN ECG ORDERABLES RADIOLOGY RESULTS * (ABNORMAL) CBC with platelets and differential (01/01/2024 4:40 PM VP SECURITIES) WBC Count 10.3 4.0 - 11.0 10e3/uL 01/01/2024 5:35 PM VP [facility] RBC Count 4.63 3.80 - 5.20 10e6/uL 01/01/2024 5:35 PM VP [facility] Hemoglobin 12.3 11.7 - 15.7 g/dL 01/01/2024 5:35 PM VP [facility] Hematocrit 39.0 35.0 - 47.0 % 01/01/2024 5:35 PM VP [facility] MCV 84 78 - 100 fL 01/01/2024 5:35 PM VP [facility] MCH 26.6 26.5 - 33.0 pg 01/01/2024 5:35 PM VP [facility] MCHC 31.5 31.5 - 36.5 g/dL 01/01/2024 5:35 PM VP [facility] RDW 24.4(H) 10.0 - 15.0 % 01/01/2024 5:35 PM VP [facility] Platelet Count 361 150 - 450 10e3/uL 01/01/2024 5:35 PM VP [facility] % Neutrophils 69 % 01/01/2024 5:35 PM VP [facility] % Lymphocytes 25 % 01/01/2024 5:35 PM VP [facility] % Monocytes 5 % 01/01/2024 5:35 PM VP [facility] % Eosinophils 1 % 01/01/2024 5:35 PM VP [facility] % Basophils 0 % 01/01/2024 5:35 PM VP [facility] % Immature Granulocytes 0 % 01/01/2024 5:35 PM VP [facility] NRBCs per 100 WBC 0 <1 /100 024 5:35 PM VP SECURITIES [facility] Absolute Neutrophils 7.1 1.6 - 8.3 10e3/uL 01/01/2024 5:35 PM VP SEC[facility]IT[facility] Absolute Lymphocytes 2.5 0.8 - 5.3 10e3/uL 01/01/2024 5:35 PM VP [facility]IT[facility] Absolute Monocytes 0.5 0.0 - 1.3 10e3/uL 01/01/2024 5:35 PM VP SEC[facility]IT[facility] Absolute Eosinophils 0.1 0.0 - 0.7 10e3/uL 01/01/2024 5:35 PM VP SECURITIES [facility] Absolute Basophils 0.0 0.0 - 0.2 10e3/uL 01/01/2024 5:35 PM VP [facility] Absolute Immature Granulocytes 0.0 <=0.4 10e3/uL 01/01/2024 5:35 PM VP SECURIT[facility] Absolute NRBCs 0.0 10e3/uL 01/01/2024 5:35 PM VP [facility] Blood BLOOD SPECIMEN / Unknown Venipuncture / Unknown 01/01/2024 4:40 PM VP SECURITIES 01/01/2024 5:29 PM VP SECURITIES Luz Cazares DO LAB - BLOOD ORDERABL ES [facility] Acute [facility] Lab [address] Lab (1st floor, no room number) [place] [address], [facility] [phone] * Nt probnp inpatient (BNP) (01/01/2024 4:40 PM VP SECURITIES) N terminal Pro BNP Inpatient 73 0 - 450 pg/mL 01/01/2024 6:00 PM VP [facility]UR[facility] Comment: Reference range shown and [...] Unknown Venipuncture / Unknown 01/01/2024 4:40 PM VP SECURITIES 01/01/2024 5:29 PM VP SECURITIES Luz Cazares LAB - BLOOD ORDERABL ES [facility] Acute Care Lab [address] Lab (1st floor, no room number) [place] [address], [facility] [phone] * Magnesium (01/01/2024 4:40 PM VP SECURITIES) Magnesium 2.0 1.7 - 2.3 mg/dL 01/01/2024 5:55 PM VP [facility]UR[facility]IES LABORATORY Blood BLOOD SPECIMEN / Unknown Venipuncture / Unknown 01/01/2024 4:40 PM VP SECURITIES 01/01/2024 5:29 PM VP SECURITIES Luz Sage LAB - BLOOD ORDERABL ES Performing Organization Address [facility]/ZIP Co de Phone Number [facility] Lab [address] Lab (1st floor, no room number) [place] [address], [place] [phone] * Troponin T, High Sensitivity (01/01/2024 4:40 PM VP SECURITIES) Troponin T, High Sensitivity 7 <=14 ng/L 01/01/2024 6:00 PM VP SECUR[facility]IES LABORATORY Comment: Either a High Sensitivity Troponin [...] Unknown Venipuncture / Unknown 01/01/2024 4:40 PM VP SECURITIES 01/01/2024 5:29 PM VP SECURITIES Luz Cazares LAB - BLOOD ORDERABL ES LABORATORY [facility] Acute [facility] Lab [address] Lab (1st floor, no room number) [place] [address], [facility] [phone] * Basic metabolic panel (01/01/2024 4:40 PM VP SECURITIES) Sodium 138 135 - 145 mmol/L 01/01/2024 5:55 PM [facility] Comment:Reference intervals for this test were updated on 08/24/2023 to more accurately reflect our healthy population. There may be differences in the flagging of prior results with similar values performed with this method. Interpretation of those prior results can be made in the context of the updated reference intervals. Potassium 4.4 3.4 - 5.3 mmol/L 01/01/2024 5:55 PM [facility] Chloride 103 98 - 107 mmol/L 01/01/2024 5:55 PM [facility] Carbon Dioxide (CO2) 22 22 - 29 mmol/L 01/01/2024 5:55 PM [facility] Anion Gap 13 7 - 15 mmol/L 01/01/2024 5:55 PM [facility] Urea Nitrogen 9.5 6.0 - 20.0 mg/dL 01/01/2024 5:55 PM [facility] Creatinine 0.76 0.51 - 0.95 mg/dL 01/01/2024 5:55 PM [facility] GFR Estimate >90 >60 mL/min/1. 73m2 01/01/2024 5:55 PM [facility] Calcium 9.2 8.6 - 10.0 mg/dL 01/01/2024 5:55 PM [facility] Glucose 93 70 - 99 mg/dL 01/01/2024 5:55 PM [facility] Blood BLOOD SPECIMEN / Unknown Venipuncture / Unknown 01/01/2024 4:40 PM VP SECURITIES 01/01/2024 5:29 PM VP SECURITIES Luz Cazares DO LAB - BLOOD ORDERABL ES Performing Organization Address [facility]/ZIP Co de Phone Number [facility] Lab [address] Lab (1st floor, no room number) [place] [address], [facility] [phone] * Partial thromboplastin time (01/01/2024 4:40 PM VP SECURITIES) aPTT 27 22 - 38 Seconds 01/01/2024 5:45 PM VP SECURITIES [facility] Blood BLOOD SPECIMEN / Unknown Venipuncture / Unknown 01/01/2024 4:40 PM VP SECURITIES 01/01/2024 5:29 PM VP SECURITIES Luz Cazares DO LAB - BLOOD ORDERABL ES Performing Organization Address [facility]/ZIP Co de Phone Number [facility] Care Lab [address] Lab (1st floor, no room number) [place] [address], [facility] [phone] * INR (01/01/2024 4:40 PM VP SECURITIES) INR 1.00 0.85 - 1.15 01/01/2024 5:45 PM VP [facility] Blood BLOOD SPECIMEN / Unknown Venipuncture / Unknown 01/01/2024 4:40 PM VP SECURITIES 01/01/2024 5:29 PM VP SECURITIES Luz Cazares DO LAB - BLOOD ORDERABL ES Performing Organization Address [facility]/ZIP Co de Phone Number [facility] Lab [address] Lab (1st floor, no room number) [place] [address], [facility] [phone] documented in this encounter Visit Diagnoses Diagnosis Chest pain, unspecified type Single subsegmental pulmonary embolism without acute cor pulmonale (H) documented in this encounter Administered Medications Inactive Administered Medications - up to 3 most recent administrations Medication Order MAR Action Action Date Dose Rate Site apixaban ANTICOAGULANT (ELIQUIS) tablet 5 mg 5 mg, Oral, ONCE, On 01/01/24 at 1745, For 1 dose, Indications: DVT-PE Treatment $Given 01/01/2024 5:50 PM VP SECURITIES [address] Scan Flush Intravenous, 100 mL, ONCE, On 01/01/24 at 1855, For 1 dose, This entry is for use by Radiology to intermittently used as a flush in patients receiving a CT scan. $Given 01/01/2024 6:54 PM VP SECURITIES 89 mLs diphenhydrAMINE (BENADRYL) injection 25 mg 25 mg, Intravenous, ONCE, On 01/01/24 at 1630, For 1 dose, Protect from light. $Given 01/01/2024 6:30 PM VP SECURITIES 25 mg diphenhydrAMINE (BENADRYL) injection 25 mg 25 mg, Intravenous, ONCE, On 01/01/24 at 1915, For 1 dose, Protect from light. $Given 01/01/2024 7:14 PM VP SECURITIES 25 mg HYDROmorphone (DILAUDID) tablet 4 mg 4 mg, Oral, ONCE, On 01/01/24 at 1745, For 1 dose $Given 01/01/2024 5:50 PM VP SECURITIES 4 mg iopamidol (ISOVUE-370) solution 500 mL 500 mL, Intravenous, ONCE, On 01/01/24 at 1855, For 1 dose $Given 01/01/2024 6:54 PM VP SECURITIES 71 mLs ipratropium - albuterol 0.5 mg/2.5 mg/3 mL (DUONEB) neb solution 3 mL 3 mL, Nebulization, ONCE, On 01/01/24 at 1915, For 1 dose $Given 01/01/2024 7:14 PM VP [facility]URITIES 3 mLs methylPREDNISolone sodium succinate (solu-MEDROL) injection 125 mg 125 mg, Intravenous, ONCE, On 01/01/24 at 1915, For 1 dose, Doses greater than or equal to 1000 mg administer over 60 minutes Doses greater than or equal to 500 mg administer over 30-60 minutes Doses greater than or equal to 250 mg administer over 15-30 minutes Doses less than or equal to 125 mg IVP over 3-5 minutes $Given 01/01/2024 7:14 PM VP [facility]URITIES 125 mg sodium chloride 0.9% BOLUS 1,000 mL Intravenous, 1,000 mL, ONCE, at 1,000 mL/hr, Administer over 1 Hours, On 01/01/24 at 1915, For 1 dose $Demarcus Bag 01/01/2024 7:14 PM VP SECURITIES 1,000 mLs 1000 mL/hr documented in this encounter Active and Recently Administered Medications Times are shown in VP SECURITIES. Scheduled Medication Order 12/30/2023 12/31/2023 01/01/2024 apixaban ANTICOAGULANT (ELIQUIS) tablet 5 mg (COMPLETED) 5 mg, Oral, ONCE, On 01/01/24 at 1745, For 1 dose, Indications: DVT-PE Treatment 1749 ($Given - Provi rosita: Zion Pierre RN) CT Scan Flush (COMPLETED) Intravenous, 100 mL, ONCE, On 01/01/24 at 1855, For 1 dose, This entry is for use by Radiology to intermittently used as a flush in patients receiving a CT scan. 1853 ($Given - Provi rosita: Sangeeta Crisostomo) diphenhydrAMINE (BENADRYL) injection 25 mg (COMPLETED) 25 mg, Intravenous, ONCE, On 01/01/24 at 1630, For 1 dose, Protect from light. 183 ($Given - Provi rosita: Zion Pierre RN - Comment: for CT) diphenhydrAMINE (BENADRYL) injection 25 mg (COMPLETED) 25 mg, Intravenous, ONCE, On 01/01/24 at 1915, For 1 dose, Protect from light. 1913 ($Given - Provi rosita: Zion Pierre RN) HYDROmorphone (DILAUDID) tablet 4 mg (COMPLETED) 4 mg, Oral, ONCE, On 01/01/24 at 1745, For 1 dose 1750 ($Given - Provi rosita: Zion Pierre RN) iopamidol (ISOVUE-370) solution 500 mL (COMPLETED) 500 mL, Intravenous, ONCE, On 01/01/24 at 1855, For 1 dose 1853 ($Given - Provi rosita: Sangeeta Crisostomo) ipratropium - albuterol 0.5 mg/2.5 mg/3 mL (DUONEB) neb solution 3 mL (COMPLETED) 3 mL, Nebulization, ONCE, On 01/01/24 at 1915, For 1 dose 1913 ($Given - Provi rosita: Zion Pierre RN) methylPREDNISolone sodium succinate (solu-MEDROL) injection 125 mg (COMPLETED) 125 mg, Intravenous, ONCE, On 01/01/24 at 1915, For 1 dose, Doses greater than or equal to 1000 mg administer over 60 minutes Doses greater than or equal to 500 mg administer over 30-60 minutes Doses greater than or equal to 250 mg administer over 15-30 minutes Doses less than or equal to 125 mg IVP over 3-5 minutes 1913 ($Given - Provi rosita: Zion Pierre RN) sodium chloride 0.9% BOLUS 1,000 mL (COMPLETED) Intravenous, 1,000 mL, ONCE, at 1,000 mL/hr, Administer over 1 Hours, On 01/01/24 at 1915, For 1 dose 1913 ($New Bag - Pro vider: Zion Pierer RN)2000 (Stopped - Provider: Heriberto Paul RN) 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 Assessment Noted Time PHQ-9 Depression Total Score: 3 05/27/20 23 5:00 PM CDT documented as of this encounter Care Teams Space Physicist Relationship Specialty Start [place] [address] [address] [address] PCP - General Family Medicine 04/22/23 [place] [address] [address] [address] Assigned Pain Medication Provider 12/07/22 [place] [address] [address] [address] Assigned PCP 01/23/23 [place] [address] [place] [address] Assigned Musculoskeletal Provider 01/23/23 Gregorio Dalton PA-C [address] [place] [address] Assigned Surgical Provider 05/22/23 Kingsley Garcia MD [address] [place] [address] Assigned Heart and Vascular Provider 08/07/23 [place] [address] [place] [address] Family Medicine 09/10/23 Master Shea PA-C [address] [place] [address] Physician Entertainment Director Gastroenterology 09/10/23 Allyssa Justice MD [facility] [address] [place] [address] Hematology & Oncology 12/10/23 Genaro Christian MD [address] [place] [address] Cardiovascular Disease 12/22/23 Master Shea PA-C [address] [place] [address] Assigned Gastroenterology Provider 12/23/23 documented as of this encounter
--- OUTSIDE RECORDS SUMMARY | 2024-03-25 18:20 | XMS_ITS | Encounter Summary ---
Author Name Unknown Organization [place] Address [address] [facility] [place] [address] Care Team Providers Care Lode Miner Name Role Phone Chantelle Virgen MD Unavailable [phone] Chantelle Virgen MD Unavailable [phone] Qamar Jackson MD Unavailable Chantelle Virgen MD Primary Care Provider + Gregorio Dalton-Shirley Unavailable [phone] Kingsley Garcia MD Unavailable [phone] Chantelle Virgen MD Unavailable [phone] Master Shea PA-C Unavailable Allyssa Justice MD Unavailable [phone] Genaro Christian MD Unavailable Master Shea-Shirley Unavailable Encounter Details Date Type Department Care Team (Late st Contact Info) Description 12/27/2023 [facility] [address] [place] [address] [place] [address] [place] [address] Multiple subsegmental pulmonary emboli without acute cor pulmonale (H) Social History Tobacco Use Types Packs/Day [...] encounter Miscellaneous Notes * Telephone Encounter - Edgar Ross PA-C - 12/30/2023 12:31 PM FUND MANAGER I will try to order in Dr. Suzan ramirez as she does have multiple hx of PE MANAGER * Telephone Encounter - Cherise Arredondo RN - 12/30/2023 11:48 AM FUND MANAGER See Rust[facility] request, new for PCP, last from Emergency room MANAGER * Telephone Encounter - Toño Wilder RN - 12/30/2023 10:08 AM FUND MANAGER Will forward to the refill pool. MANAGER * Telephone Encounter - Toño Wilder RN - 12/28/2023 10:39 AM FUND MANAGER Tiarra wang from [facility] Farias in the ER. Pt is a restricted pt. Looks like Dr. Virgen has ordered in the past. MANAGER * Addendum Note - Toño Wilder RN - 12/27/2023 12:45 PM CSTAddended by: TOÑO WILDER on: 12/30/2023 10:09 AM Modules accepted: Orders MANAGER * Addendum Note - Edgar Ross PA-C - 12/27/2023 12:45 PM CSTAddended by: EDGAR ROSS on: 12/30/2023 12:32 PM Modules accepted: Orders MANAGER * Addendum Note - Chantelle Virgen MD - 12/27/2023 12:45 PM CSTAddended by: CHANTELLE VIRGEN on: 01/06/2024 02:26 PM Modules accepted: Orders MANAGER documented in this encounter Plan of Treatment Upcoming Encounters Date Type Department Care Team (Late st Contact Info) Description 05/09/2024 10:00 AM CDT Office Visit [facility] [address] [place] [id number] [place] [address] [place] [address] documented as of this encounter Visit Diagnoses Diagnosis Multiple subsegmental pulmonary emboli without acute cor pulmonale (H) 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 Assessment Noted Time PHQ-9 Depression Total Score: 3 05/27/20 23 5:00 PM CDT documented as of this encounter Care Teams Lode Miner Relationship Specialty [place] [address] [address] [address] PCP - General Family Medicine 04/22/23 [place] [address] [address] [address] Assigned Pain Medication Provider 12/07/22 [place] [address] [address] [address] Assigned PCP 01/23/23 [place] [address] [place] [address] Assigned Musculoskeletal Provider 01/23/23 Gregorio Dalton PA-C [address] [address] Assigned Surgical Provider 05/22/23 Kingsley Garcia MD [address] [place] [address] Assigned Heart and Vascular Provider 08/07/23 [place] [address] [address] [address] Family Medicine 09/10/23 Master Shea PA-C [address] [place] [address] Physician Workers' Compensation Commissioner Gastroenterology 09/10/23 Allyssa Justice MD [facility] [address] [place] [address] [place] [address] Hematology & Oncology 12/10/23 Genaro Christian MD [address] [place] [address] Cardiovascular Disease 12/22/23 Master Shea PA-C [address] [place] [address] Assigned Gastroenterology Provider 12/23/23 documented as of this encounter
--- OUTSIDE RECORDS SUMMARY | 2024-03-25 18:20 | XMS_ITS | Encounter Summary ---
Author Name Unknown Organization [place] Address [facility] [place] [address] Care Team Providers Care Senior Nuclear Medicine Technologist Name Role Phone Segundo Mcclelland MD Unavailable [phone] Segundo Mcclelland MD Unavailable [phone] Qamar Jackson MD Unavailable Segundo Mcclelland MD Primary Care Provider + Gregorio Dalton PA-C Unavailable [phone] Kingsley Garcia MD Unavailable + [phone] Segundo Mcclelland MD Unavailable [phone] Master Shea PA-C Unavailable Allyssa Jusitce MD Unavailable [phone] Genaro Christian MD Unavailable [phone] Master Shea PA-C Unavailable Encounter Details Date Type Department Care Team (Latest Contact Info) Description 12/24/2023 Travel Social History Tobacco Use Types Packs/Day [...] Description 05/09/2024 10:00 AM CDT Office Visit [facility] [address] [place] [address] [place] [address] [place], [place] [address] documented as of this encounter Visit Diagnoses Not on file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 Assessment Noted Time PHQ-9 Depression Total Score: 3 05/27/20 23 5:00 PM CDT documented as of this encounter Care Teams Senior Nuclear Medicine Technologist Relationship Specialty Start [place] [address] [place] [id number] PCP - General Family Medicine 04/22/23 [place] [address] [place] [address] Assigned Pain Medication Provider 12/07/22 [place] [address] [place] [address] Assigned PCP 01/23/23 [place] [address] [place] [address] Assigned Musculoskeletal Provider 01/23/23 Gregorio Dalton PA-C [address] [place] [address] Assigned Surgical Provider 05/22/23 Kingsley Garcia MD [address] [place] [address] Assigned Heart and Vascular Provider 08/07/23 [place] [address] [place] [address] Family Medicine 09/10/23 Master Shea PA-C [address] [place] [address] Physician Men'S Designer Gastroenterology 09/10/23 Allyssa Justice MD [facility] [address] [place] [address] Hematology & Oncology 12/10/23 Genaro Christian MD [address] [place] [address] Cardiovascular Disease 12/22/23 Master Shea PA-C [address] [place] [address] Assigned Gastroenterology Provider 12/23/23 documented as of this encounter
--- OUTSIDE RECORDS SUMMARY | 2024-03-25 18:20 | XMS_ITS | Encounter Summary ---
Author Name Unknown Organization [place] Address [address] [place] [address] Care Team Providers Care Freelance Digital Project Manager Name Role Phone Segundo Mcclelland MD Unavailable [phone] Segundo Mcclelland MD Unavailable Qamar Jackson MD Unavailable Segundo Mcclelland MD Primary Care Provider + Gregorio Dalton PA-C Unavailable Kingsley Garcia MD Unavailable [phone] Segundo Mcclelland MD Unavailable Master Shea PA-C Unavailable Allyssa Justice MD Unavailable [phone] Genaro Christian MD Unavailable Master Shea PA-C Unavailable Encounter Details Date Type Department Care Team (Late st Contact Info) Description 12/30/2023 Telephone [facility] [address] [place] [address] [place] [address] [place] [address] Social History Tobacco Use Types [...] Telephone Encounter - Sienna Wilder RN - 12/30/2023 9:37 AM CLERICAL ADVISER ICAL ADVISER documented in this encounter Plan of Treatment Upcoming Encounters Date Type Department Care Team (Late st Contact Info) Description 05/09/2024 10:00 AM CDT Office Visit [facility] [address] [place] [address] [place] [address] [place] [address] documented as of this encounter Visit Diagnoses Not on file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 Assessment Noted Time PHQ-9 Depression Total Score: 3 05/27/20 23 5:00 PM CDT documented as of this encounter Care Teams Freelance Digital Project Manager Relationship Specialty Start [place] [address] [address] [address] PCP - General Family Medicine 04/22/23 [place] [address] [address] [address] Assigned Pain Medication Provider 12/07/22 [place] [address] [address] [address] Assigned PCP 01/23/23 [place] [address] [place] [address] Assigned Musculoskeletal Provider 01/23/23 Gregorio Dalton PA-C [address] [address] Assigned Surgical Provider 05/22/23 Kingsley Garcia MD [address] [place] [address] Assigned Heart and Vascular Provider 08/07/23 [place] [address] [address] [address] Family Medicine 09/10/23 Master Shea PA-C [address] [place] [address] Physician Tower Control Operator Gastroenterology 09/10/23 Allyssa Justice MD [facility] [address] [place] [address] [place] [address] Hematology & Oncology 12/10/23 Genaro Christian MD [address] [place] [address] Cardiovascular Disease 12/22/23 Master Shea PA-C [address] [place] [address] Assigned Gastroenterology Provider 12/23/23 documented as of this encounter
--- OUTSIDE RECORDS SUMMARY | 2024-03-25 18:20 | XMS_ITS | Encounter Summary ---
Author Name Unknown Organization [place] Address [address] [facility] [place] [address] Care Team Providers Care Hair Stylist Name Role Phone Segundo Mcclelland MD Unavailable [phone] Segundo Mcclelland MD Unavailable [phone] Qamar Jackson MD Unavailable Segundo Mcclelland MD Primary Care Provider + Gregorio Dalton PA-C Unavailable Kingsley Garcia MD Unavailable [phone] Segundo Mcclelland MD Unavailable [phone] Master Shea PA-C Unavailable Allyssa Justice MD Unavailable [phone] Genaro Christian MD Unavailable Encounter Details Date Type Department Care Team (Late st Contact Info) Description 12/22/2023 Telephone [facility] [address] [facility] [place] [address] Allyssa Justice MD [facility] [address] [place] [address] Social History Tobacco Use Types Packs/Day Years [...] encounter Miscellaneous Notes * Telephone Encounter - Funmi Min - 12/22/2023 2:19 PM CST Called patient and left message to call back and reschedule appointment with Dr Justice. Dr Justice requested patient to be seen end of dec or beginning of January and as a return patient not as a new patient T INDUSTRIAL documented in this encounter Plan of Treatment Upcoming Encounters Date Type Department Care Team (Late st Contact Info) Description 05/09/2024 10:00 AM CDT Office Visit [address] [address] [place] [address] [place] [address] documented as of this encounter Visit Diagnoses Not on file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 Assessment Noted Time PHQ-9 Depression Total Score: 3 05/27/20 23 5:00 PM CDT documented as of this encounter Care Teams Hair Stylist Relationship Specialty Start [place] [address] [place] [address] PCP - General Family Medicine 04/22/23 [place] [address] [place] [address] Assigned Pain Medication Provider 12/07/22 [place] [address] [place] [address] Assigned PCP 01/23/23 [place] [address] [place] [address] Assigned Musculoskeletal Provider 01/23/23 Gregorio Dalton PA-C [address] [address] Assigned Surgical Provider 05/22/23 Kingsley Garcia MD [address] [place] [address] Assigned Heart and Vascular Provider 08/07/23 [place] [address] [place] [address] Family Medicine 09/10/23 Master Shea PA-C [address] [place] [address] Physician Chief Relay Tester Gastroenterology 09/10/23 Allyssa Justice MD [facility] [address] [facility] [place] [place] [address] [place] [address] Hematology & Oncology 12/10/23 Genaro Christian MD 6 [place], [place] [address] Cardiovascular Disease 12/22/23 documented as of this encounter
--- OUTSIDE RECORDS SUMMARY | 2024-03-25 18:20 | XMS_ITS | Encounter Summary ---
Author Name Unknown Organization [place] Address [address] [facility] [place] [address] Care Team Providers Care Proof Sorter Name Role Phone Segundo Mcclelland MD Unavailable [phone] Segundo Mcclelland MD Unavailable [phone] Qamar Jackson MD Unavailable Segundo Mcclelland MD Primary Care Provider + Gregorio Dalton PA-C Unavailable [phone] Kingsley Garcia MD Unavailable + [phone] Segundo Mcclelland MD Unavailable [phone] Master Shea PA-C Unavailable Allyssa Justice MD Unavailable [phone] Genaro Chrsitian MD Unavailable [phone] Master Shea-C Unavailable Sienna Guillermo DO Unavailable [phone] Allyssa Justice MD Unavailable [phone] Encounter Details Date Type Department Care Team (Late st Contact Info) Description 01/04/2024 Telephone [facility] [address] [place] [address] [place] [address] [place] [address] Social History Tobacco Use Types Packs/Day Years [...] * Telephone Encounter - Kait Rao - 01/04/2024 3:16 PM CST LVM to offer Same Day. Kait Winters Lead Audioprosthologist ICAL RESOURCE COORDINATOR * Telephone Encounter - Segundo Mcclelland MD - 01/04/2024 2:51 PM CLINICAL RESOURCE COORDINATOR May offer the same day Segundo Mcclelland MD ICAL RESOURCE COORDINATOR * Telephone Encounter - Kait Rao - 01/04/2024 9:12 AM CST Routing to provider to see if Same Day can be used on 01/06. Kait Winters Lead Audioprosthologist ICAL RESOURCE COORDINATOR * Telephone Encounter - Gardenia Thomas - 01/04/2024 8:57 AM CST Patient calls, requesting sooner appointment for ER follow up. She is currently scheduled for a VV on 01/10 but states she is still experiencing pain and fevers and would like to be seen sooner via virtual visit. Please advise if she can be seen sooner ICAL RESOURCE COORDINATOR documented in this encounter Plan of Treatment Upcoming Encounters Date Type Department Care Team (Late st Contact Info) Description 05/09/2024 10:00 AM CDT Office Visit [facility] [address] [place] [address] [place] [address] [place] [address] documented as of this encounter Visit Diagnoses Not on file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 Rule Out COVID-19 01/18/2024 01/18/2024 01/18/2024 8:53 PM CLINICAL RESOURCE COORDINATOR Rule Out COVID-19 01/28/2024 01/28/2024 01/28/2024 10:22 PM CLINICAL RESOURCE COORDINATOR Rule Out COVID-19 02/17/2024 02/17/2024 02/17/2024 5:07 PM CDT Assessment Noted Time PHQ-9 Depression Total Score: 3 05/27/20 23 5:00 PM CDT documented as of this encounter Care Teams Proof Sorter Relationship Specialty Start [place] [address] [place] [address] PCP - General Family Medicine 04/22/23 [place] [address] [address] [place] [address] Assigned Pain Medication Provider 12/07/22 [place] [address] [place] [address] Assigned PCP 01/23/23 [place] [address] [address] [place] [address] Assigned Musculoskeletal Provider 01/23/23 Gregorio Dalton PA-C [address] [address] Assigned Surgical Provider 05/22/23 Kingsley Garcia MD [address] [place] [address] Assigned Heart and Vascular Provider 08/07/23 [place] [address] [place] [address] Family Medicine 09/10/23 Master Shea PA-C [address] [place] [address] Physician Jewelry Coater Gastroenterology 09/10/23 Allyssa Justice MD [facility] [address] [place] [address] Hematology & Oncology 12/10/23 Genaro Christian MD 6 [place], [place] [address] Cardiovascular Disease 12/22/23 Master Shea PA-C [address] [place] [address] Assigned Gastroenterology Provider 12/23/23 Sienna Guillermo DO [address] [place] [address] Physician Cardiovascular Disease 01/18/24 Allyssa Justice MD [facility] [address] [place] [address] Assigned Cancer Care Provider 03/21/24 documented as of this encounter
--- OUTSIDE RECORDS SUMMARY | 2024-03-25 18:20 | XMS_ITS | Encounter Summary ---
Author Name Unknown Organization [place] Address [facility] [place] [address] Care Team Providers Care Corporate Tax Manager Name Role Phone Segundo Mcclelland MD Unavailable [phone] Segundo Mcclelland MD Unavailable [phone] Qamar Jackson MD Unavailable Segundo Mcclelland MD Primary Care Provider + Gregorio Dalton PA-C Unavailable [phone] Kingsley Garcia MD Unavailable + [phone] Segundo Mcclelland MD Unavailable [phone] Master Shea PA-C Unavailable Allyssa Justice MD Unavailable [phone] Genaro Christian MD Unavailable [phone] Master Shea PA-C Unavailable Encounter Details Date Type Department Care Team (Latest Contact Info) Description 01/04/2024 Travel Social History Tobacco Use Types Packs/Day [...] Description 05/09/2024 10:00 AM CDT Office Visit [facility] [address] [facility] [place] [address] [place] [address] [place], [place] [address] documented as of this encounter Visit Diagnoses Not on file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 Assessment Noted Time PHQ-9 Depression Total Score: 3 05/27/20 23 5:00 PM CDT documented as of this encounter Care Teams Corporate Tax Manager Relationship Specialty Start [place] [address] [address] [id number] PCP - General Family Medicine 04/22/23 [place] [address] [place] [address] Assigned Pain Medication Provider 12/07/22 [place] [address] [place] [address] Assigned PCP 01/23/23 [place] [address] [place] [address] Assigned Musculoskeletal Provider 01/23/23 Gregorio Dalton PA-C [address] [place] [address] Assigned Surgical Provider 05/22/23 Kingsley Garcia MD [address] [place] [address] Assigned Heart and Vascular Provider 08/07/23 [place] [address] [place] [address] Family Medicine 09/10/23 Master Shea PA-C [address] [place] [place] [address] Physician Tester Rocket Engine Gastroenterology 09/10/23 Allyssa Justice MD [facility] [address] [place] [address] Hematology & Oncology 12/10/23 Genaro Christian MD 6 [place] [address] Cardiovascular Disease 12/22/23 Master Shea PA-C [address] [place] [address] Assigned Gastroenterology Provider 12/23/23 documented as of this encounter
--- OUTSIDE RECORDS SUMMARY | 2024-03-25 18:20 | XMS_ITS | Encounter Summary ---
Author Name Unknown Organization [place] Address [facility] [place] [address] Care Team Providers Care Supervisor Fur Dressing Name Role Phone Segundo Mcclelland MD Unavailable [phone] Segundo Mcclelland MD Unavailable [phone] Qamar Jackson MD Unavailable Segundo Mcclelland MD Primary Care Provider + Gregorio Dalton PA-C Unavailable [phone] Kingsley Garcia MD Unavailable + [phone] Segundo Mcclelland MD Unavailable [phone] Master Shea PA-C Unavailable Allyssa Justice MD Unavailable [phone] Genaro Christian MD Unavailable [phone] Master Shea PA-C Unavailable Encounter Details Date Type Department Care Team (Latest Contact Info) Description 12/27/2023 Travel Social History Tobacco Use Types Packs/Day [...] 10:00 AM CDT Office Visit [facility] [address] [facility] [place] [address] [place] [address] [place], [place] [address] documented as of this encounter Visit Diagnoses Not on file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 Assessment Noted Time PHQ-9 Depression Total Score: 3 05/27/20 23 5:00 PM CDT documented as of this encounter Care Teams Supervisor Fur Dressing Relationship Specialty Start [place] [address] [address] [place] [id number] PCP - General Family Medicine 04/22/23 [place] [address] [place] [address] Assigned Pain Medication Provider 12/07/22 [place] [address] [place] [address] Assigned PCP 01/23/23 [place] [address] [place] [address] Assigned Musculoskeletal Provider 01/23/23 Gregorio Dalton PA-C [address] [place] [address] Assigned Surgical Provider 05/22/23 Kingsley Garcia MD [address] [place] [address] Assigned Heart and Vascular Provider 08/07/23 [place] [address] [place] [address] Family Medicine 09/10/23 Master Shea PA-C [address] [place] [address] Physician Data Integration Analyst Gastroenterology 09/10/[address] [facility] [address] [place] [address] Hematology & Oncology 12/10/23 Genaro Christian MD [address] [place] [address] Cardiovascular Disease 12/22/23 Master Shea PA-C [address] [place] [address] Assigned Gastroenterology Provider 12/23/23 documented as of this encounter
--- OUTSIDE RECORDS SUMMARY | 2024-03-25 18:20 | XMS_ITS | Encounter Summary ---
Author Name Unknown Organization [place] Address [address] [facility] [place] [address] Care Team Providers Care Portal Administrator Name Role Phone Segundo Mcclelland MD Unavailable [phone] Segundo Mcclelland MD Unavailable Qamar Jackson MD Unavailable Segundo Mcclelland MD Primary Care Provider + Gregorio Dalton PA-C Unavailable Kingsley Garcia MD Unavailable [phone] Segundo Mcclelland MD Unavailable Master Shea PA-C Unavailable Allyssa Justice MD Unavailable [phone] Genaro Christian MD Unavailable Master Shea PA-C Unavailable Reason for Visit * Reason Onset Date Comments Refill Request 12/23/2023 Encounter Details Date Type Department Care Team (Late st Contact Info) Description 12/23/2023 Kumar Refadrianne [facility] [address] [place] [address] [place] [address] [place] [address] Refill Request Social History Tobacco Use Types [...] AM CDT Office Visit [facility] [address] [place] [address] [place] [address] [place] [address] documented as of this encounter Visit Diagnoses Diagnosis Pleuritic chest pain Painful respiration 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 Assessment Noted Time PHQ-9 Depression Total Score: 3 05/27/20 23 5:00 PM CDT documented as of this encounter Care Teams Portal Administrator Relationship Specialty Start [place] [address] [address] [address] PCP - General Family Medicine 04/22/23 [place] [address] [address] [address] Assigned Pain Medication Provider 12/07/22 [place] [address] [address] [address] Assigned PCP 01/23/23 [place] [address] [place] [address] Assigned Musculoskeletal Provider 01/23/23 Gregorio Dalton PA-C [address] [address] Assigned Surgical Provider 05/22/23 Kingsley Garcia MD [address] [place] [address] Assigned Heart and Vascular Provider 08/07/23 [place] [address] [address] Family Medicine 09/10/23 Master Shea PA-C [address] [place] [address] Physician Door Operator Gastroenterology 09/10/23 Allyssa Justice MD [facility] [address] [facility] [place] [address] [place] [address] Hematology & Oncology 12/10/23 Genaro Christian MD [address] [place] [address] Cardiovascular Disease 12/22/23 Master Shea PA-C [address] [place] [address] Assigned Gastroenterology Provider 12/23/23 documented as of this encounter
--- OUTSIDE RECORDS SUMMARY | 2024-03-25 18:20 | XMS_ITS | Encounter Summary ---
Author Name Unknown Organization [place] Address [address] [facility] [place] [address] Care Team Providers Care Academic Adviser Name Role Phone Segundo Mcclelland MD Unavailable Segundo Mcclelland MD Unavailable Qamar Jackson MD Unavailable Segundo Mcclelland MD Primary Care Provider + Gregorio Dalton PA-C Unavailable [phone] Kingsley Garcia MD Unavailable [phone] Segundo Mcclelland MD Unavailable Master Shea PA-C Unavailable Allyssa Justice MD Unavailable [phone] Genaro Christian MD Unavailable [phone] Master Shea PA-C Unavailable Reason for Visit * Reason Onset Date Comments Referral 12/24/2023 Encounter Details Date Type Department Care Team (Late st Contact Info) Description 12/24/[address] [facility] [address] [place] [address] [place] [address] [place] [address] Referral Social History Tobacco Use Types Packs/Day Years [...] encounter Miscellaneous Notes * Telephone Encounter - Dara Ponce, RN - 12/30/2023 10:23 AM PRECISION LENS POLISHER Call from Ashely at [facility]. Ashely informed RN that due to recent DHS changes, they cannot collect ED referrals to approve. This is no longer able to be done. Gina will have to get a denial for coverage and they will have to appeal it. They do not have forms for referrals because they are unable to do that. She also states that they have approved Dr Stevenson visits from October so there should not be anythingelse needed for that. Ashely is going to call [facility] Billing office to explain this to them and answer questions. No further action is needed on our part. Dara aWtson RN on 12/30/2023 at 10:34 AM ISION LENS POLISHER * Telephone Encounter - Sienna Wilder RN - 12/30/2023 9:43 AM PRECISION LENS POLISHER Called [facility] and left a message for them to call us back. When they call back, please get the forms needed for referrals faxed to us and get them to Dr. Mcclelland. See messages below. ISION LENS POLISHER * Telephone Encounter - Sienna Wilder RN - 12/30/2023 9:39 AM PRECISION LENS POLISHER Farrah calls from Billing office [phone]. She said she spoke to Franklyn 30 minutes ago. To get the form for the referral, - u [employer] restricted recipient line and there fax [phone]. They need referrals. They are denying her claims because they need a referral for this. Advised that Dr. Mcclelland is out all week. ISION LENS POLISHER * Telephone Encounter - Donato Argueta RN - 12/30/2023 9:07 AM CST Received call from Billing Department. Patient is restricted to go to [facility] ED. However, patient has gone to [facility] ED several times recently. Per Billing Department, would need a [facility] referral form filled out for patient to be seen at [facility]. Per Billing, ED visits were designated as non-emergent so patient would need a referral. Patient was seen at [facility] the following date/timeframes: 09/20/23 - 09/21/23 09/25/23 11/09/23 - 11/10/23 12/02/23 12/17/23 12/20/23 Call back if questions #[phone] Donato Means RN 12/30/2023 at 9:09 AM ISION LENS POLISHER * Telephone Encounter - Segundo Mcclelland MD - 12/24/2023 2:53 PM PRECISION LENS POLISHER Who is Dr. Stevenson and what is their specialty and practice? Segundo Mcclelland MD ISION LENS POLISHER * Telephone Encounter - Jesica Sales - 12/24/2023 10:48 AM CST Saloni from Billing department is calling to report that patient is a restricted pt to Dr. Mcclelland. Patient saw Dr. Waleska Stevenson 11/11/23, and Saloni reports PCP needs to submit referral to [facility], taftoning patient seeing Dr. Stevenson for the service. Please advise referral. If any questions/concerns please call Saloni. Saloni would like to be notified once referral is submitted [phone]. ISION LENS POLISHER documented in this encounter Plan of Treatment Upcoming Encounters Date Type Department Care Team (Late st Contact Info) Description 05/09/2024 10:00 AM CDT Office Visit 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 Assessment Noted Time PHQ-9 Depression Total Score: 3 05/27/20 23 5:00 PM CDT documented as of this encounter Care Teams Academic Adviser Relationship Specialty Start [place] [address] [place] [address] PCP - General Family Medicine 04/22/23 [place] [address] [address] Assigned Pain Medication Provider 12/07/22 [place] [address] [address] [address] Assigned PCP 01/23/23 [place] [address] [place] [address] Assigned Musculoskeletal Provider 01/23/23 Gregorio Dalton PA-C [address] [address] Assigned Surgical Provider 05/22/23 Kingsley Garcia MD [address] [place] [address] Assigned Heart and Vascular Provider 08/07/23 [place] [address] [address] [address] Family Medicine 09/10/23 Master Shea PA-C [address] [place] [address] Physician Hazardous Waste Technician Gastroenterology 09/10/23 Allyssa Justice MD [facility] [address] [place] [address] Hematology & Oncology 12/10/23 Genaro Christian MD 6 [place] [address] Cardiovascular Disease 12/22/23 Master Shea PA-C [address] [place] [address] Assigned Gastroenterology Provider 12/23/23 documented as of this encounter
--- OUTSIDE RECORDS SUMMARY | 2024-03-25 18:20 | XMS_ITS | Encounter Summary ---
Author Name Unknown Organization [place] Address [address] [facility] [place] [address] Care Team Providers Care Sight Mounter Name Role Phone Segundo Mcclelladn MD Unavailable [phone] Segundo Mcclelland MD Unavailable [phone] Qamar Jackson MD Unavailable Segundo Mcclelland MD Primary Care Provider + Gregorio Dalton PA-C Unavailable Kingsley Garcia MD Unavailable [phone] Segundo Mcclelland MD Unavailable [phone] Master Shea PA-C Unavailable Allyssa Justice MD Unavailable [phone] Genaro Christian MD Unavailable Master Shea PA-C Unavailable Reason for Visit * Reason Onset Date Comments Refill Request 01/04/2024 FLUCONAZOLE 150M G TABS 150 Encounter Details Date Type Department Care Team (Late Contact Info) Description 01/04/2024 [facility] [address] [place] [address] [place] [address] [place] [address] Refill Request (FLUCONAZOLE 150MG TABS 150) Social History Tobacco Use Types Packs/Day Years [...] Telephone Encounter - Olga Garcia RN - 01/07/2024 7:42 AM CST Called pt. Pt states she does not need refill for FLUCONAZOLE 150MG TABS 150. Pt will notify pharm not to send auto refill. Olga Garcia RN METER OPERATOR * Telephone Encounter - Olga Garcia RN - 01/06/2024 7:33 AM CST Called patient and left voicemail to call back and ask to speak to any triage nurse. Pt has OV scheduled for 01/10/24 with PCP. Can request refill at that time. Olga Garcia, RN METER OPERATOR * Telephone Encounter - Sienna Wilder RN - 01/05/2024 9:53 AM TAG METER OPERATOR Needs appt per Franklyn in refills. She is currently in the Emergency Room. METER OPERATOR * Telephone Encounter - Kait Rao - 01/04/2024 10:12 AM CST Medication Question or Refill What medication are you calling about (include dose and sig)?: FLUCONAZOLE 150MG TABS 150 Preferred Pharmacy: [id number] [address] [facility] [address] [facility] [address] Controlled Substance Agreement on file: CSA -- Patient Level: CSA: None found at the patient level. Who prescribed the medication?: Dr. Mcclelland METER OPERATOR documented in this encounter Plan of Treatment Upcoming Encounters Date Type Department Care Team (Late st Contact Info) Description 05/09/2024 10:00 AM CDT Office Visit [facility] [address] [place] [address] [place] [address] [place] [address] documented as of this encounter Visit Diagnoses Not on file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 Assessment Noted Time PHQ-9 Depression Total Score: 3 05/27/20 23 5:00 PM CDT documented as of this encounter Care Teams Sight Mounter Relationship Specialty Start [place] [address] [place] [address] PCP - General Family Medicine 04/22/23 [place] [address] [place] [address] Assigned Pain Medication Provider 12/07/22 [place] [address] [place] [address] Assigned PCP 01/23/23 [place] [address] [place] [address] Assigned Musculoskeletal Provider 01/23/23 Gregorio Dalton PA-C [address] [place] [address] Assigned Surgical Provider 05/22/23 Kingsley Garcia MD [address] [place] [address] Assigned Heart and Vascular Provider 08/07/23 [place] [address] [place] [address] Family Medicine 09/10/23 Master Shea PA-C [address] [place] [address] Physician Ice Cream Freezer Gastroenterology 09/10/23 Allyssa Justice MD [facility] [address] [place] [address] Hematology & Oncology 12/10/23 Genaro Christian MD [address] [place], [place] [address] Cardiovascular Disease 12/22/23 Master Shea PA-C [address] [place] [address] Assigned Gastroenterology Provider 12/23/23 documented as of this encounter
[2024-03-25 18:21] LABS: Albumin* 4.2 g/dL (3.3-5.0); Chloride* 107 mmol/L (96-114)
--- OUTSIDE RECORDS SUMMARY | 2024-03-25 18:21 | XMS_ITS | Encounter Summary ---
Author Name Unknown Organization [place] Address [facility] [place] [address] Care Team Providers Care Four H Club Agent Name Role Phone Segundo Mcclelland MD Unavailable [phone] Segundo Mcclelland MD Unavailable [phone] Qamar Jackson MD Unavailable Segundo Mcclelland MD Primary Care Provider + Gregorio Dalton PA-C Unavailable [phone] Kingsley Garcia MD Unavailable + [phone] Segundo Mcclelland MD Unavailable [phone] Master Shea PA-C Unavailable Allyssa Justice MD Unavailable [phone] Encounter Details Date Type Department Care Team (Late st Contact Info) Description 12/20/2023 5:30 PM BELL ATTENDANT Ancillary Procedure [facility] [address] [place] [address] Bess Barajas MD [facility] [address] [place] [address] Social History Tobacco Use Types Packs/Day Years [...] Office Visit [facility] [address] [place] [address] [place] [address] [place] [address] documented as of this encounter Procedures Procedure Name Priority Date/Time Associated Diagnosis Comments POC US GUIDANCE NEEDLE PLACEMENT STAT 12/20/2023 5:29 PM BELL ATTENDANT documented in this encounter Results * POC US GUIDANCE NEEDLE PLACEMENT (12/20/2023 5:29 PM BELL ATTENDANT) Anatomical Region Laterality Modality Other Impressions 12/20/2023 5:29 PM BELL ATTENDANT Limited Bedside Ultrasound for IV Performed by: Dr. Barajas Indication: IV access Body area(s) imaged: R AC Findings: Compressible vein identified in distal portion of AC best visualized longitudinally and difficult to see transversely. Impression: Successful cannulation with 18G IV. 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 Assessment Noted Time PHQ-9 Depression Total Score: 3 05/27/20 5:00 PM CDT documented as of this encounter Care Teams Four H Club Agent Relationship Specialty Start [place] [address] [address] PCP - General Family Medicine 04/22/23 [place] [address] [place] [address] Assigned Pain Medication Provider 12/07/22 [place] [address] [address] [address] Assigned PCP 01/23/23 [place] [address] [place] [address] Assigned Musculoskeletal Provider 01/23/23 Gregorio Dalton PA-C [address] [address] Assigned Surgical Provider 05/22/23 Kingsley Garcia MD [address] [place] [address] Assigned Heart and Vascular Provider 08/07/23 [place] [address] [address] Family Medicine 09/10/23 Master Shea PA-C [address] [place] [address] Physician Javascript Engineer Gastroenterology 09/10/23 Allyssa Justice MD [facility] [address] [address] Hematology & Oncology 12/10/23 documented as of this encounter
--- OUTSIDE RECORDS SUMMARY | 2024-03-25 18:21 | XMS_ITS | Encounter Summary ---
Author Name Unknown Organization [place] Address [address] [place] [address] Care Team Providers Care Gold Beater Name Role Phone Segundo Mcclelland MD Unavailable [phone] Segundo Mcclelland MD Unavailable [phone] Qamar Jackson MD Unavailable Segundo Mcclelland MD Primary Care Provider + Gregorio Dalton PA-C Unavailable [phone] Kingsley Garcia MD Unavailable [phone] Segundo Mcclelland MD Unavailable [phone] Master Shea PA-C Unavailable Allyssa Justice MD Unavailable [phone] Encounter Details Date Type Department Care Team (Latest Contact Info) Description 12/20/2023 Travel Social History Tobacco Use Types Packs/Day [...] AM CDT Office Visit [facility] [address] [place] [address] [place] [address] [address] documented as of this encounter Visit Diagnoses Not on file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 Assessment Noted Time PHQ-9 Depression Total Score: 3 05/27/20 23 5:00 PM CDT documented as of this encounter Care Teams Gold Beater Relationship Specialty Start [place] [address] [address] [address] PCP - General Family Medicine 04/22/23 [place] [address] [address] Assigned Pain Medication Provider 12/07/22 [place] [address] [place] [address] Assigned PCP 01/23/23 [place] [address] [place] [address] Assigned Musculoskeletal Provider 01/23/23 Gregorio Dalton PA-C [address] [address] Assigned Surgical Provider 05/22/23 Kingsley Garcia MD [address] [place] [address] Assigned Heart and Vascular Provider 08/07/23 [place] [address] [address] Family Medicine 09/10/23 Master Shea PA-C [address] [place] [address] Physician Wheel Shop Supervisor Gastroenterology 09/10/23 Allyssa Justice MD [facility] [address] [place] [place] [address] Hematology & Oncology 12/10/23 documented as of this encounter
--- OUTSIDE RECORDS SUMMARY | 2024-03-25 18:21 | XMS_ITS | Encounter Summary ---
Author Name Unknown Organization [facility] Address [address] [place] [address] Care Team Providers Care Tumbling Instructor Name Role Phone Segundo Mcclelland MD Unavailable [phone] Segundo Mcclelland MD Unavailable [phone] Qamar Jackson MD Unavailable Segundo Mcclelland MD Primary Care Provider + Gregorio Dalton PA-C Unavailable [phone] Kingsley Garcia MD Unavailable [phone] Segundo Mcclelland MD Unavailable [phone] Master Shea PA-C Unavailable Allyssa Justice MD Unavailable [phone] Reason for Visit * Reason Comments Syncope Encounter Details Date Type Department Care Team (Late st Contact Info) Description 12/20/2023 2:43 PM MARKETING SUPPORT COORDINATOR - 12/20/2023 11:31 PM MARKETING SUPPORT COORDINATOR Emergency [facility] [address] [place] [address] Bess Barajas MD [facility] [address] [place] [address] Gastroparesis; Intractable vomiting; POTS (postural orthostatic tachycardia syndrome); Recurrent syncope Discharge Disposition: Home or Self Care [...] Sign Reading Time Taken Comments Blood Pressure 149/88 12/20/2023 1:53 PM MARKETING SUPPORT COORDINATOR Pulse 117 12/20/2023 1:53 PM MARKETING SUPPORT COORDINATOR Temperature 36.8 ??C (98.3 ??F) 12/20/2023 1:53 PM CS T Respiratory Rate 30 12/20/2023 1:53 PM MARKETING SUPPORT COORDINATOR Oxygen Saturation 100% 12/20/2023 1:53 PM MARKETING SUPPORT COORDINATOR Inhaled Oxygen Concentration - - Weight - - Height - - Body Mass Index - - documented in this encounter Discharge Instructions * Attachments The following attachments cannot be sent through Care Everywhere. * Gastroparesis (Cambodian) * Nausea and Vomiting (Cambodian) documented in this encounter Medications at Time [...] anxiety naloxone (NARCAN) 4 MG/0.1ML nasal spray [place] 4 mg into one nostril alternating nostrils once as needed for opioid reversal 06/28/2023 zolpidem (AMBIEN) 10 MG tablet Take 10 mg by mouth At Bedtime 12/17/2022 doxycycline hyclate (VIBRAMYCIN) 100 MG capsule Take 1 capsule (100 mg) by mouth 2 times daily for 7 days 14 capsule 12/13/2023 12/20/2023 apixaban ANTICOAGULANT (ELIQUIS) 5 MG tabletIndications:Mult iple subsegmental pulmonary emboli without acute cor pulmonale (H) Take 1 tablet (5 mg) by mouth 2 times daily 180 tablet 1 12/07/2023 12/25/2023 bacitracin 500 UNIT/GM external ointmentIndications:Ul cer of [...] as of this encounter ED Notes * Kamryn Guerin RN - 12/20/2023 11:30 PM CST IV removed from neck. Patient monitored for 20 minutes after. No bleeding at that site. Her ride arrived and she will be discharged. ETING SUPPORT COORDINATOR * Anil Huertas RN - 12/20/2023 5:05 PM CST Attempted ultrasound iv. Blood sent and results. Holding on reinsertion of line. Explained to pt will hold for now until provider can review labs. ETING SUPPORT COORDINATOR * Karon Garcia RN - 12/20/2023 2:25 PM CST US IV attempted but no veins visualized, will try to get into room veronica ETING SUPPORT COORDINATOR * Bess Barajas MD - 12/20/2023 1:55 PM CST PIT/Triage Evaluation Patient presented with 1 month of intermittent syncopal episodes. She endorses vomiting and left back pain. Known bilateral PE diagnosed 1 month ago and currently on Eliquis. Admitted 12/04-12/08 for Hb7 and underwent transfusion. Had colonoscopy done at that time showing erosive gastropathy without bleeding (based on chart review). Believes Ozempic may be contributing. No shortness of breath, cough, or nasal congestion. Tried calling her primary and was referred here. Taking ativan and benadryl,allergic to other anti-emetics and anti- psychotics I asked her about. Exam is notable for: Eyes: Sclera white; Pupils are equal and round ENT: External ears and nares normal CV: Rate as above Resp: Breath sounds clear and equal bilaterally Non-labored, no retractions or accessory muscle use GI: Abdomen is soft, non-tender, non-distended No rebound tenderness or peritoneal features MS: Moves all extremities Skin: Warm and dry Neuro: Speech is normal and fluent. No apparent deficit. Psych: Very tearful, stating she didn't want to be here, she wanted to be at her primary, crying again saying she doesn't feel good and doesn't want to Appropriate interventions for symptom management were initiated if applicable. Appropriate diagnostic tests were initiated if indicated. Important information for subsequent clinician: Multiple recent CTs including yesterday. Start with labs. States she is allergic to the medicationsI discussed with her. I briefly evaluated the patient and developed an initial plan of care. I discussed this plan and explained that this brief interaction does not constitute a full evaluation. Patient/family understands that they should wait to be fully evaluated and discuss any test results with another clinician prior to leaving the hospital. Bess Barajas MD 12/20/23 1417 ETING SUPPORT COORDINATOR * Sunni Presley RN - 12/20/2023 1:53 PM CST Pt reports recent syncope episodes. Pt reports known PE from a month ago, on eliquis. Pt denies SOB, recently hospitalized for hemoglobin of 7, pt reports given blood transfusion, colonoscopy completed. Pt reports hx of Atrial Flutter, POTS. Pt reports passing out over the last month, pt reports passing out twice this weekend Pt reports a lot of vomiting from colonoscopy prep. Called PCP and directed to the ED. Pt tearful in ED. Triage Assessment (Adult) Row Name 12/20/23 7656 Triage Assessment Airway WDL WDL Cognitive/Neuro/Behavioral WDL Arousal Level opens eyes spontaneously Orientation oriented x 4 Jody Coma Scale Best Eye Response 4-->(E4) spontaneous Best Motor Response 6-->(M6) obeys commands Best Verbal Response 5-->(V5) oriented Jody Coma Scale Score 15 ETING SUPPORT COORDINATOR * Bess Barajas MD - 12/20/2023 1:41 PM CST History Chief Complaint: Syncope The history is provided by the patient. Sandi Lopez is a 38 year old female with a history of PE on Eliquis, anemia, hypertension, GERD, gastroparesis, Kathleen-Mustafa tear, mesenteric lymphadenitis, POTS, CANELO, and BPD who presents via EMS with 1 month of intermittent syncopal episodes. She endorses vomiting and left back pain. Known bilateral PE diagnosed 1 month ago and currently on Eliquis. Admitted 12/04-12/08 for Hb 7 and underwent transfusion. Had colonoscopy done at that time showing erosive gastropathy without bleeding (based on chart review). Believes Ozempic may be contributing. No shortness of breath, cough, or nasal congestion. Tried calling her primary and was referred here. Taking ativan and benadryl, allergic toother anti-emetics and anti-psychotics I asked her about. Independent Historian: None - Patient Only Review of External Notes: Discharge summary including IV summaries, GI summaries, midline for colonoscopy was time limited and removed afterwards Medications: Eliquis Diphenhydramine Doxycycline Epinephrine Gabapentin Hydromorphone Naloxone Pantoprazole Zolpidem Past Medical History: Anemia Atrial flutter Dysthymic [...] BP Temp Temp src Pulse Resp SpO2 12/20/23 1353 (!) 149/88 98.3 ??F (36.8 ??C) Temporal 117 30 100 % Physical Exam Eyes: Sclera white; Pupils are equal and round ENT: External ears and nares normal CV: Rate as above Resp: Breath sounds clear and equal bilaterally Non-labored, no retractions or accessory muscle use GI: Abdomen is soft, non-tender, non-distended No rebound tenderness or peritoneal features MS: Moves all extremities Skin: Warm and dry Neuro: Speech is normal and fluent. No apparent deficit. Psych: Very tearful, stating she didn't want to be here, she wanted to be at her primary, crying again saying she doesn't feel good and doesn't want to Emergency Department Course ECG ECG taken at 1431, ECG read at 1726 Sinus tachycardia Rightward axis Cannot rule out anterior infarct, age undetermined Abnormal ECG No significant changes as compared to prior, dated 12/19/23. Rate 114 bpm. ID interval 148 ms. QRS duration 64 ms. QT/QTc 312/430 ms. P-R-T axes 32 95 -9. Laboratory: Labs Ordered and Resulted from Time of ED Arrival to Time of ED Departure COMPREHENSIVE METABOLIC PANEL - Abnormal Result Value Sodium 139 Potassium 4.4 Carbon Dioxide (CO2) 18 (*) Anion Gap 14 Urea Nitrogen 8.9 Creatinine 0.62 GFR Estimate >90 Calcium 9.2 Chloride 107 Glucose 110 (*) Alkaline Phosphatase 207 (*) AST 32 ALT 60 (*) Protein Total 7.7 Albumin 3.9 Bilirubin Total <0.2 CBC WITH PLATELETS AND DIFFERENTIAL - Abnormal WBC Count 7.0 RBC Count 4.20 Hemoglobin 10.4 (*) Hematocrit 34.9 (*) MCV 83 MCH 24.8 (*) MCHC 29.8 (*) RDW 24.4 (*) Platelet Count 237 % Neutrophils 64 % Lymphocytes 28 % Monocytes 6 % Eosinophils 1 % Basophils 0 % Immature Granulocytes 1 NRBCs per 100 WBC 0 Absolute Neutrophils 4.5 Absolute Lymphocytes 2.0 Absolute Monocytes 0.4 Absolute Eosinophils 0.1 Absolute Basophils 0.0 Absolute Immature Granulocytes 0.1 Absolute NRBCs 0.0 RBC AND PLATELET MORPHOLOGY - Abnormal Platelet Assessment (*) Value: Automated Count Confirmed. Giant platelets are present. Acanthocytes Mahogany Rods Basophilic Stippling Bite Cells Blister Cells [place]en Cells Elliptocytes Hgb C Crystals [place] Bodies Hypersegmented Neutrophils Polychromasia RBC agglutination RBC Fragments Reactive Lymphocytes Rouleaux Sickle Cells Smudge Cells Spherocytes Stomatocytes Target Cells Teardrop Cells Toxic Neutrophils RBC Morphology Confirmed RBC Indices LIPASE - Normal Lipase 48 HCG QUALITATIVE - Normal hCG Serum Qualitative Negative TROPONIN T, HIGH SENSITIVITY - Normal Troponin T, High Sensitivity 8 Procedures Ultrasound Guided Peripheral IV Placement PROCEDURE: Peripheral IV Placement with Ultrasound Guidance. INDICATIONS: Access PROCEDURAL NOTE: Skin prepped with chloraprep. US used with real time visualization of the vein which is collapsable. 18G catheter seen entering vein in R AC. Flash returned. Catheter did not advancewell. Flushes easily. Secured in place. No complications. Image not saved. After 400mL fluids, the IV stopped working. Attempted to reposition unsuccessfully. Later itchy with some erythema in hands. States this happens sometimes after chloraprep which I confirmed with her allergy list. Skin cleaned. Declined steroids. Okay with benadryl. Ultrasound Guided Peripheral IV Placement PROCEDURE: Peripheral IV Placement with Ultrasound Guidance. INDICATIONS: Acesss PROCEDURAL NOTE: Skin prepped with several alcohol swabs per her allergies and instruction. US usedwith real time visualization of the vein which is collapsable. Discussed EJ vs internal jugular with patient who is fine with either. Placed in Trendelenberg. Sterile technique prior to looking with US. 18G catheter seen entering vein in R neck. Peripheral internal jugular as EJ was not well visualized. Flash returned. Catheter advanced easily. No dilation. Flushes easily. Secured in place with dressing and no sutures. No complications. Image not saved. Discussed with nursing lying flat during removal. Emergency Department Course & Assessments: Assessments/Consultations/Discussion of Management or Tests: 1400 I obtained history and examined the patient as noted above. 172 I rechecked the patient and explained findings. 1899 I rechecked the patient and explained findings. ED Course as of 12/20/23 1900 WedDec 20, 20231802 I placed US 18G IV in R AC on 3rd attempt. 1st attempt didn't thread with 20G. Interventions: Medications lactated ringers BOLUS 2,000 mL (2,000 mLs Intravenous $New Bag 12/20/232031) diphenhydrAMINE (BENADRYL) injection 25 mg (25 mg Intravenous $Given 12/20/232031) LORazepam (ATIVAN) tablet 1 mg (1 mg Oral $Given 12/20/232032) LORazepam (ATIVAN) tablet 1 mg (1 mg Oral $Given 12/20/232037) Independent Interpretation (X-rays, CTs, rhythm strip): None Social Determinants of Health affecting care: Needs outpatient follow-up Disposition: The patient was discharged to home. Impression & Plan [facility] Diagnoses: None Medical Decision Making: EKG w/o ischemia, dysrhythmia, or pericarditis. No suggestion of Brugada or WPW. Nursing was able to obtain blood but not IV. Anemia stable as her post recent value was 9.3. No evidence to suggest recurrent bleeding. Although she is describing vomiting, there are no severe electrolyte changes or CANELO which could be complication secondary to this. IV access for fluids as above. With multiple recentimaging and stable labs, imaging was not repeated. Chart flagged for care plan was noted but the EDspecific care plan was not seen in her triage tab problem list. Will strongly benefit from primary care follow-up and hopefully her clinic will schedule with her after this ED visit. I spent a significant amount of time with her in the room during IV attempts. She was in the ED for significant amount of time. Was intermittently seen gagging or retching but no emesis occurred during the time that I was caring for her. I asked how her mental health was doing with everything she is been experiencing and offered mental health support and evaluation. This was declined in the ED. As noted above, with one of the IV attempts I used ChloraPrep in the right AC. She has a history of allergies to this after her port was placed. She had some itching and some patchy erythema without hives or other system involvement. Declined steroids. Willing to take Benadryl IV but declined orally as she has been taking it at home. Home ativan given orally. Remains in the ED at time of shift change and she was signed out to an oncoming provider. My plan with her is to discharge once the IV fluids are complete. Diagnosis: ICD-10-CM 1. Gastroparesis K31.84 2. Intractable vomiting R11.10 3. POTS (postural orthostatic tachycardia syndrome) G90.A 4. Recurrent syncope R55 Discharge Medications: New Prescriptions No medications on file Scribe Disclosure: Zurdo Sanchez Hailie, am serving as a scribe at 5:14 PM on 12/20/2023 to document services personally performed by Bess Barajas MD based on my observations and the provider's statements to me. 12/20/2023 Bess Barajas MD Gosen, Christine Leigh, MD 12/20/232 ETING SUPPORT COORDINATOR documented in this encounter Plan of Treatment Upcoming Encounters Date Type Department Care Team (Late st Contact Info) Description 05/09/2024 10:00 AM CDT Office Visit [facility] [address] [place] [phone] [place] [address] [place], [place] [id number] documented as of this encounter Procedures Procedure Name Priority Date/Time Associated Diagnosis Comments POC US GUIDANCE NEEDLE PLACEMENT STAT 12/20/2023 5:29 PM MARKETING SUPPORT COORDINATOR RBC AND PLATELET MORPHOLOGY STAT 12/20/2023 3:36 PM MARKETING SUPPORT COORDINATOR CBC WITH PLATELETS AND DIFFERENTIAL STAT 12/20/2023 3:36 PM MARKETING SUPPORT COORDINATOR TROPONIN T, HIGH SENSITIVITY STAT 12/20/2023 3:36 PM MARKETING SUPPORT COORDINATOR CBC WITH PLATELETS & DIFFERENTIAL STAT 12/20/2023 3:36 PM MARKETING SUPPORT COORDINATOR LIPASE STAT 12/20/2023 3:36 PM MARKETING SUPPORT COORDINATOR HCG QUALITATIVE STAT 12/20/2023 3:36 PM MARKETING SUPPORT COORDINATOR COMPREHENSIVE METABOLIC PANEL STAT 12/20/2023 3:36 PM MARKETING SUPPORT COORDINATOR EKG 12-LEAD, TRACING ONLY STAT 12/20/2023 2:31 PM MARKETING SUPPORT COORDINATOR documented in this encounter Results * POC US GUIDANCE NEEDLE PLACEMENT (12/20/2023 5:29 PM MARKETING SUPPORT COORDINATOR) Anatomical Region Laterality Modality Other Impressions 12/20/2023 5:29 PM MARKETING SUPPORT COORDINATOR Limited Bedside Ultrasound for IV Performed by: Dr. Gosen Indication: IV access Body area(s) imaged: R AC Findings: Compressible vein identified in distal portion of AC best visualized longitudinally and difficult to see transversely. Impression: Successful cannulation with 18G IV. Images not saved Bess Barajas MD IMG POCUS * (ABNORMAL) RBC and Platelet Morphology (12/20/2023 3:36 PM MARKETING SUPPORT COORDINATOR) Platelet Assessment Automated Count Confirmed. Giant platelets are present.(A) Automated Count Confirmed. Platelet morphology is normal. 12/20/2023 5:15 PM MARKETING SUPPORT COORDINATOR LABORATORY Acanthocytes 12/20/2023 5:15 PM MARKETING SUPPORT COORDINATOR LABORATORY Mahogany Rods 12/20/2023 5:15 PM MARKETING SUPPORT COORDINATOR LABORATORY Basophilic Stippling 12/20/2023 5:15 PM MARKETING SUPPORT COORDINATOR LABORATORY Bite Cells 12/20/2023 5:15 PM MARKETING SUPPORT COORDINATOR LABORATORY Blister Cells 12/20/2023 5:15 PM MARKETING SUPPORT COORDINATOR LABORATORY Killeen Cells 12/20/2023 5:15 PM MARKETING SUPPORT COORDINATOR LABORATORY Elliptocytes 12/20/2023 5:15 PM MARKETING SUPPORT COORDINATOR LABORATORY Hgb C Crystals 12/20/2023 5:15 PM MARKETING SUPPORT COORDINATOR LABORATORY [place] Bodies 12/20/2023 5:15 PM MARKETING SUPPORT COORDINATOR LABORATORY Hypersegmented Neutrophils 12/20/2023 5:15 PM MARKETING SUPPORT COORDINATOR LABORATORY Polychromasia 12/20/2023 5:15 PM MARKETING SUPPORT COORDINATOR LABORATORY RBC agglutination 024 5:15 PM MARKETING SUPPORT COORDINATOR LABORATORY RBC Fragments 12/20/2023 5:15 PM MARKETING SUPPORT COORDINATOR LABORATORY Reactive Lymphocytes 12/20/2023 5:15 PM MARKETING SUPPORT COORDINATOR LABORATORY Rouleaux 12/20/2023 5:15 PM MARKETING SUPPORT COORDINATOR LABORATORY Sickle Cells 12/20/2023 5:15 PM MARKETING SUPPORT COORDINATOR LABORATORY Smudge Cells 12/20/2023 5:15 PM MARKETING SUPPORT COORDINATOR LABORATORY Spherocytes 12/20/2023 5:15 PM MARKETING SUPPORT COORDINATOR LABORATORY Stomatocytes 12/20/2023 5:15 PM MARKETING SUPPORT COORDINATOR LABORATORY Target Cells 12/20/2023 5:15 PM MARKETING SUPPORT COORDINATOR LABORATORY Teardrop Cells 12/20/2023 5:15 PM MARKETING SUPPORT COORDINATOR LABORATORY Toxic Neutrophils 024 5:15 PM MARKETING SUPPORT COORDINATOR LABORATORY RBC Morphology Confirmed RBC Indices 12/20/2023 5:15 PM MARKETING SUPPORT COORDINATOR LABORATORY Blood VENOUS LINE / Unknown Venipuncture / Unknown 12/20/2023 3:36 PM MARKETING SUPPORT COORDINATOR 12/20/2023 3:38 PM MARKETING SUPPORT COORDINATOR Bess Barajas MD LAB - BLOOD ORD ERABLES LABORATORY [facility] [address], [address] [place] [address], [facility] [phone] * (ABNORMAL) CBC with platelets and differential (12/20/2023 3:36 PM MARKETING SUPPORT COORDINATOR) WBC Count 7.0 4.0 - 11.0 10e3/uL 12/20/2023 5:15 PM [facility] RBC Count 4.20 3.80 - 5.20 10e6/uL 12/20/2023 5:15 PM [facility] Hemoglobin 10.4(L) 11.7 - 15.7 g/dL 12/20/2023 5:15 PM [facility] Hematocrit 34.9(L) 35.0 - 47.0 % 12/20/2023 5:15 PM [facility] MCV 83 78 - 100 fL 12/20/2023 5:15 PM [facility] MCH 24.8(L) 26.5 - 33.0 pg 12/20/2023 5:15 PM [facility] MCHC 29.8(L) 31.5 - 36.5 g/dL 12/20/2023 5:15 PM [facility] RDW 24.4(H) 10.0 - 15.0 % 12/20/2023 5:15 PM [facility] Platelet Count 237 150 - 450 10e3/uL 12/20/2023 5:15 PM [facility] % Neutrophils 64 % 12/20/2023 5:15 PM [facility] % Lymphocytes 28 % 12/20/2023 5:15 PM [facility] % Monocytes 6 % 12/20/2023 5:15 PM [facility] % Eosinophils 1 % 12/20/2023 5:15 PM [facility] % Basophils 0 % 12/20/2023 5:15 PM [facility] % Immature Granulocytes 1 % 12/20/2023 5:15 PM MARKETING SUPPORT COORDINATOR LABORATORY NRBCs per 100 WBC 0 <1 /100 024 5:15 PM MARKETING SUPPORT COORDINATOR LABORATORY Absolute Neutrophils 4.5 1.6 - 8.3 10e3/uL 12/20/2023 5:15 PM MARKETING SUPPORT COORDINATOR LABORATORY Absolute Lymphocytes 2.0 0.8 - 5.3 10e3/uL 12/20/2023 5:15 PM MARKETING SUPPORT COORDINATOR LABORATORY Absolute Monocytes 0.4 0.0 - 1.3 10e3/uL 12/20/2023 5:15 PM MARKETING SUPPORT COORDINATOR LABORATORY Absolute Eosinophils 0.1 0.0 - 0.7 10e3/uL 12/20/2023 5:15 PM MARKETING SUPPORT COORDINATOR LABORATORY Absolute Basophils 0.0 0.0 - 0.2 10e3/uL 12/20/2023 5:15 PM MARKETING SUPPORT COORDINATOR LABORATORY Absolute Immature Granulocytes 0.1 <=0.4 10e3/uL 12/20/2023 5:15 PM MARKETING SUPPORT COORDINATOR LABORATORY Absolute NRBCs 0.0 10e3/uL 12/20/2023 5:15 PM [facility] Blood VENOUS LINE / Unknown Venipuncture / Unknown 12/20/2023 3:36 PM MARKETING SUPPORT COORDINATOR 12/20/2023 3:38 PM MARKETING SUPPORT COORDINATOR Bess Barajas MD LAB - BLOOD ORD ERABLES LABORATORY [facility] [address], [address] [place] [address], [facility] [phone] * Troponin T, High Sensitivity (12/20/2023 3:36 PM MARKETING SUPPORT COORDINATOR) [facility] Troponin T, High Sensitivity 8 <=14 ng/L 12/20/2023 4:11 PM MARKETING SUPPORT COORDINATOR LABORATORY Comment: Either a High Sensitivity Troponin [...] VENOUS LINE / Unknown Venipuncture / Unknown 12/20/2023 3:36 PM MARKETING SUPPORT COORDINATOR 12/20/2023 3:38 PM MARKETING SUPPORT COORDINATOR Bess Barajas MD LAB - BLOOD ORD ERABLES LABORATORY [facility] [address], [address] [place] [address], [facility] [phone] * HCG QUALitative (blood) (12/20/2023 3:36 PM MARKETING SUPPORT COORDINATOR) hCG Serum Qualitative Negative Negative [place] 12/20/2023 3:53 PM MARKETING SUPPORT COORDINATOR LABORATORY Comment:This test is for scr eening purposes. Results should be interpreted along with the clinical picture. Confirmation testing is available if warranted by ordering [id number], HCG Quantitative . Blood VENOUS LINE / Unknown Venipuncture / Unknown 12/20/2023 3:36 PM MARKETING SUPPORT COORDINATOR 12/20/2023 3:38 PM MARKETING SUPPORT COORDINATOR Bess Barajas MD LAB - BLOOD ORD ERABLES LABORATORY [facility] [address], [address] [place] [address], [place] [phone] * Lipase (12/20/2023 3:36 PM MARKETING SUPPORT COORDINATOR) Lipase 48 13 - 60 U/L 12/20/2023 4:11 PM MARKETING SUPPORT COORDINATOR LABORATORY Blood VENOUS LINE / Unknown Venipuncture / Unknown 12/20/2023 3:36 PM MARKETING SUPPORT COORDINATOR 12/20/2023 3:38 PM MARKETING SUPPORT COORDINATOR Bess Barajas MD LAB - BLOOD ORD ERABLES LABORATORY [facility] [address], [address] [place] [address], [facility] [phone] * (ABNORMAL) Comprehensive metabolic panel (12/20/2023 3:36 PM MARKETING SUPPORT COORDINATOR) Sodium 139 135 - 145 mmol/L 12/20/2023 5:00 PM [facility] Comment:Reference intervals for this test were updated on 08/24/2023 to more accurately reflect our healthy population. There may be differences in the flagging of prior results with similar values performed with this method. Interpretation of those prior results can be made in the context of the updated reference intervals. Potassium 4.4 3.4 - 5.3 mmol/L 12/20/2023 5:00 PM [facility] Carbon Dioxide (CO2) 18(L) 22 - 29 mmol/L 12/20/2023 5:00 PM [facility] Anion Gap 14 7 - 15 mmol/L 12/20/2023 5:00 PM [facility] Urea Nitrogen 8.9 6.0 - 20.0 mg/dL 12/20/2023 5:00 PM [facility] Creatinine 0.62 0.51 - 0.95 mg/dL 12/20/2023 5:00 PM [facility] GFR Estimate >90 >60 mL/min/1. 73m2 12/20/2023 5:00 PM [facility] Calcium 9.2 8.6 - 10.0 mg/dL 12/20/2023 5:00 PM [facility] Chloride 107 98 - 107 mmol/L 12/20/2023 5:00 PM [facility] Glucose 110(H) 70 - 99 mg/dL 12/20/2023 5:00 PM [facility] Alkaline Phosphatase 207(H) 40 - 150 U/L 12/20/2023 5:00 PM [facility] Comment:Reference intervals for this test were updated on 10/12/2023 to more accurately reflect our healthy population. There may be differences in the flagging of prior results with similar values performed with this method. Interpretation of those prior results can be made in the context of the updated reference intervals. AST 32 0 - 45 U/L 12/20/2023 5:00 PM [facility] Comment:Reference intervals for this test were updated on 05/10/2023 to more accurately reflect our healthy population. There may be differences in the flagging of prior results with similar values performed with this method. Interpretation of those prior results can be made in the context of the updated reference intervals. ALT 60(H) 0 - 50 U/L 12/20/2023 5:00 PM [facility] Comment:Reference intervals for this test were updated on 05/10/2023 to more accurately reflect our healthy population. There may be differences in the flagging of prior results with similar values performed with this method. Interpretation of those prior results can be made in the context of the updated reference intervals. Protein Total 7.7 6.4 - 8.3 g/dL 12/20/2023 5:00 PM [facility] Albumin 3.9 3.5 - 5.2 g/dL 12/20/2023 5:00 PM [facility] Bilirubin Total <0.2 <=1.2 mg/dL 12/20/2023 5:00 PM [facility] Blood VENOUS LINE / Unknown Venipuncture / Unknown 12/20/2023 3:36 PM MARKETING SUPPORT COORDINATOR 12/20/2023 3:38 PM [facility] Bess Barajas MD LAB - BLOOD ORD ERABLES LABORATORY [facility] [address] 1[address] floor, [address] [place] [address], [facility] [phone] * EKG 12 lead (12/20/2023 2:31 PM MARKETING SUPPORT COORDINATOR) Systolic Blood Pressure mmHg RADIOLOGY RESULTS Diastolic Blood Pressure mmHg RADIOLOGY RESULTS Ventricular Rate 114 BPM RAD IOLOGY RESULTS Atrial Rate 114 BPM RADIOLOG Y RESULTS ID Interval 148 ms RADIOLOG Y RESULTS QRS Duration 64 ms RADIOLO GY RESULTS QT 312 ms RADIOLOGY RESULTS QTc 430 ms RADIOLOGY RESULTS P [place] 32 degrees RADIOLOGY RESULTS R AXIS 95 degrees RADIOLOGY RESULTS T [place] -9 degrees RADIOLOGY RESULTS Interpretation ECG Sinus tachycardia Rightward axis Cannot rule out Anterior infarct , age undetermined Abnormal ECG When compared with ECG of 19-DEC-2023 03:59, Questionable change in QRS axis Inverted T waves have replaced nonspecific T wave abnormality in Inferior leads Confirmed by GENERATED REPORT, COMPUTER ([id number]), legal editor Carlos Bruner ([id number]) on 12/20/2023 7:17:11 PM RADIOLOGY RESULTS 12/20/2023 2:31 PM MARKETING SUPPORT COORDINATOR 12/20/2023 7:17 PM MARKETING SUPPORT COORDINATOR Bess Barajas MD ECG ORDERABLES RADIOLOGY RESULTS documented in this encounter Visit Diagnoses Diagnosis Gastroparesis Intractable vomiting Persistent vomiting POTS (postural orthostatic tachycardia syndrome) Tachycardia, unspecified Recurrent syncope documented in this encounter Administered Medications Inactive Administered Medications - up to 3 most recent administrations Medication Order MAR Action Action Date Dose Rate Site diphenhydrAMINE (BENADRYL) injection 25 mg 25 mg, Intravenous, ONCE, On Wed12/20/23 at 1900, For 1 dose, Protect from light. $Given 12/20/2023 8:32 PM MARKETING SUPPORT COORDINATOR 25 mg lactated ringers BOLUS 2,000 mL Intravenous, 2,000 mL, ONCE, at 2,000 mL/hr, Administer over 1 Hours, On Wed12/20/23 at 1810, For 1 dose $New Bag 12/20/2023 8:32 PM MARKETING SUPPORT COORDINATOR 2,000 mLs 2000 mL/hr LORazepam (ATIVAN) tablet 1 mg 1 mg, Oral, ONCE, On Wed12/20/23 at 2030, For 1 dose $Given 12/20/2023 8:33 PM MARKETING SUPPORT COORDINATOR 1 mg LORazepam (ATIVAN) tablet 1 mg 1 mg, Oral, ONCE, On Wed12/20/23 at 2040, For 1 dose $Given 12/20/2023 8:38 PM MARKETING SUPPORT COORDINATOR 1 mg documented in this encounter Active and Recently Administered Medications Times are shown in MARKETING SUPPORT COORDINATOR. Scheduled Medication Order 12/18/2023 12/19/2023 12/20/2023 diphenhydrAMINE (BENADRYL) injection 25 mg (COMPLETED) 25 mg, Intravenous, ONCE, On Wed12/20/23 at 1900, For 1 dose, Protect from light. 2031 ($Given - Provi rosita: Michelle Duran RN) lactated ringers BOLUS 2,000 mL (COMPLETED) Intravenous, 2,000 mL, ONCE, at 2,000 mL/hr, Administer over 1 Hours, On Wed12/20/23 at 1810, For 1 dose 2031 ($New Bag - Pro vider: Michelle Duran RN)[id number] (Stopped - Provider: Michelle Duran RN) LORazepam (ATIVAN) tablet 1 mg (COMPLETED) 1 mg, Oral, ONCE, On Wed12/20/23 at 2030, For 1 dose 2032 ($Given - Provi rosita: Michelle Duran RN) LORazepam (ATIVAN) tablet 1 mg (COMPLETED) 1 mg, Oral, ONCE, On Wed12/20/23 at 2040, For 1 dose 2037 ($Given - Provi rosita: Michelle Duran RN) 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 Assessment Noted Time PHQ-9 Depression Total Score: 3 05/27/20 23 5:00 PM CDT documented as of this encounter Care Teams Tumbling Instructor Relationship Specialty [place] [address] [address] [id number] PCP - General Family Medicine 04/22/23 [place] [address] [address] Assigned Pain Medication Provider 12/07/22 [place] [address] [address] [address] Assigned PCP 01/23/23 [place] [address] [address] [address] Assigned Musculoskeletal Provider 01/23/23 Gregorio Dalton PA-C [address] [address] Assigned Surgical Provider 05/22/23 Kingsley Garcia MD [address] [address] Assigned Heart and Vascular Provider 08/07/23 [place] [address] [address] [address] Family Medicine 09/10/23 Master Shea PA-C [id number] [address] Physician Corporate Safety Manager Gastroenterology 09/10/23 Allyssa Justice MD [facility] [address] [address] Hematology & Oncology 12/10/23 documented as of this encounter
--- OUTSIDE RECORDS SUMMARY | 2024-03-25 18:21 | XMS_ITS | Encounter Summary ---
Author Name Unknown Organization [facility] Address [address] [place] [address] Care Team Providers [facility] Nurse Practitioner Name Role Phone Segundo Mcclelland MD Unavailable [phone] Segundo Mcclelland MD Unavailable [phone] Qamar Jackson MD Unavailable Segundo Mcclelland MD Primary Care Provider + Gregorio Dalton PA-C Unavailable [phone] Kingsley Garcia MD Unavailable + [phone] Segundo Mcclelland MD Unavailable [phone] Master Shea PA-C Unavailable Allyssa Justice MD Unavailable [phone] Reason for Visit * Reason Comments Fall Encounter Details Date Type Department Care Team (Late st Contact Info) Description 12/19/2023 3:51 AM REGULATOR OPERATOR - 12/19/2023 12:52 PM [facility] Emergency [facility] [address] [place] [address] Nehemiah Gonzales MD [facility] [address], [address] [place] [address] Syncope and collapse; Left flank pain Discharge Disposition: Home or Self Care [...] Sign Reading Time Taken Comments Blood Pressure 108/72 12/19/2023 12:25 PM REGULATOR OPERATOR Pulse 88 12/19/2023 12:25 PM REGULATOR OPERATOR Temperature 36.4 ??C (97.6 ??F) 12/19/2023 3:49 AM CS T Respiratory Rate 20 12/19/2023 3:47 AM REGULATOR OPERATOR Oxygen Saturation 98% 12/19/2023 12:41 PM REGULATOR OPERATOR Inhaled Oxygen Concentration - - Weight - - Height - - Body Mass Index - - documented in this encounter Discharge Instructions * Discharge Instructions* Nehemiah Gonzales MD - 12/19/2023 12:33 PM REGULATOR OPERATOR Discharge Instructions Syncope Syncope (fainting) is a [...] if there is anything that worries you. Return to the emergency department if symptoms are worsening, become concerning, or for any other concerns. Follow-up with your doctor in 2-3 and sooner if needed. LATOR OPERATOR documented in this encounter Medications at [...] anxiety naloxone (NARCAN) 4 MG/0.1ML nasal spray [place] 4 mg into one nostril alternating nostrils [...] for severe pain 6 tablet 12/20/2023 02/03/2024 HYDROmorphone (DILAUDID) 4 MG tablet Take 2-4 mg by mouth every 4 hours as needed for severe pain 12/20/2023 Multiple Vitamins-Iron (QC DAILY MULTIVITAMINS/IRON) TABSIndications:Morbid obesity [...] as of this encounter ED Notes * Evie Brenner, RN - 12/19/2023 5:28 AM CST MD Alvarado updated on Hypotension. Orders for Bolus and labs obtained. LATOR OPERATOR * Desirae Petit RN - 12/19/2023 3:42 AM CST BIBA. Discharged from [facility] 4h ago. Increased weakness since colonoscopy on Wednesday. Pt thinks she passed out in the bathroom and woke up hours and hours later. EMS unable to get good hx d/t pt being a poor historian. VSS en route. Last pain meds were given at [facility] ED. Pt states I got home from the hospital and then went to the bathroom around 2300. Next thing I know I woke up at 0300 wedged in between the toilet and the bathtub. Pt tearful during triage and repeatedly keeps saying I'm not trying to waste your time. Pt drowsyin triage. Pt then states I have POTS and gastroparesis from ozempic and I've been dehydrated since my colonoscopy. LATOR OPERATOR * Nehemiah Gonzales MD - 12/19/2023 3:41 AM CST History Chief Complaint: Syncopal Episode The history is provided by the patient. Sandi Lopez is a 38 year old female with a history of POTS, gastroparesis, PE on Eliquis, gastric ulcers, borderline personality disorder, chronic opioid and benzo use, chronic anemia who presents with a syncopal episode. At 2300 last night, she was using the bathroom when she stood up and i mmediately felt cold and lightheaded had a syncopal episode. She woke up on the ground between the toilet and bath tub a couple hours later, and felt weak and had left-sided rib pain. She is unsure if she hit her head during the fall. EMS was eventually called and she was brought back to the ED. She suspect the episode was caused by being dehydrated from the preparation for her colonoscopy earlier this week. She also states that she frequently gets dehydrated due to the gastroparesis. She denies chest pain, shortness of breath, palpitations, abdominal pain, vomiting, diarrhea, urinary symptoms, neck pain, headaches, or abdominal pain. She notes that her last dose of pain medications was around 1999 last night while she was still at [facility]. Independent Historian: None - Patient Only Review of External Notes: Discharge summary on December 08 where she was seen for syncope, and it mentions recurrent ED visits. Allergies: Chlorhexidine Droperidol Nsaids Sulfa Antibiotics Compazine [Prochlorperazine] Metoclopramide Olanzapine Phenergan [Promethazine] Phenothiazines Zofran [Ondansetron Hcl] Contrast Dye Physical Exam Patient Vitals for the past 24 hrs: BP Temp Temp src Pulse Resp SpO2 12/19/23 1241 -- -- -- -- -- 98 % 12/19/23 1225 108/72 -- -- 88 -- 100 % 12/19/23 1218 (!) 86/33 -- -- 77 -- 98 % 12/19/23 1203 (!) 89/53 -- -- 73 -- 95 % 12/19/23 1148 (!) 84/46 -- -- 75 -- 96 % 12/19/23 1133 (!) 81/41 -- -- 77 -- 96 % 12/19/23 1118 (!) 87/44 -- -- 75 -- 97 % 12/19/23 1103 (!) 82/41 -- -- 80 -- 99 % 12/19/23 1048 (!) 76/46 -- -- 76 -- 97 % 12/19/23 1030 -- -- -- 76 -- 97 % 12/19/23 1029 -- -- -- 75 -- 99 % 12/19/23 1028 (!) 87/50 -- -- 78 -- 96 % 12/19/23 1010 (!) 86/44 -- -- 80 -- 96 % 12/19/23 0955 (!) 85/45 -- -- 80 -- 96 % 12/19/23 0940 (!) 89/ -- -- 82 -- 99 % 12/19/23 0826 108/77 -- -- 93 -- 100 % 12/19/23 0641 90/69 -- -- 77 -- 99 % 12/19/23 0640 -- -- -- -- -- 99 % 12/19/23 0620 101/56 -- -- 82 -- 99 % 12/19/23 0541 -- -- -- -- -- 100 % 12/19/23 0540 95/52 -- -- 76 -- -- 12/19/23 0519 (!) 89/66 -- -- 77 -- 98 % 12/19/23 0500 (!) 88/52 -- -- 77 -- 91 % 12/19/23 0440 93/54 -- -- 77 -- 96 % 12/19/23 0420 95/57 -- -- 81 -- 99 % 12/19/23 0416 93/58 -- -- 83 -- 99 % 12/19/23 0349 -- 97.6 ??F (36.4 ??C) Temporal -- -- -- 12/19/23 034 107/70 -- -- 110 20 100 % Physical Exam GENERAL: Patient appears fatigued and disheveled but nontoxic. HEAD: Atraumatic. NECK: No rigidity CV: RRR, no murmurs rubs or gallops Chest: Tenderness over the left sided rib cage without skin changes. No crepitus or bony deformity. PULM: CTAB with good aeration; no retractions, rales, rhonchi, or wheezing ABD: Soft, nontender, nondistended, no guarding DERM: No rash. Skin warm and dry EXTREMITY: Moving all extremities without difficulty. Emergency Department Course ECG ECG interpreted by me. Time 0[address] elevation or depression. Normal intervals. Normal axis. Low voltage. No evidence of WPW, Brugada, HOCM, ARVD, ASD, or Wellen's. Laboratory: Imaging: Labs Ordered and Resulted from Time of ED Arrival to Time of ED Departure CK TOTAL - Abnormal Result Value CK 21 (*) BASIC METABOLIC PANEL - Abnormal Sodium 135 Potassium 3.5 Chloride 103 Carbon Dioxide (CO2) 24 Anion Gap 8 Urea Nitrogen 6.3 Creatinine 0.74 GFR Estimate >90 Calcium 8.9 Glucose 103 (*) CBC WITH PLATELETS AND DIFFERENTIAL - Abnormal WBC Count 8.1 RBC Count 3.77 (*) Hemoglobin 9.4 (*) Hematocrit 31.4 (*) MCV 83 MCH 24.9 (*) MCHC 29.9 (*) RDW 23.9 (*) Platelet Count 461 (*) % Neutrophils 54 % Lymphocytes 38 % Monocytes 6 % Eosinophils 2 % Basophils 0 % Immature Granulocytes 0 NRBCs per 100 WBC 0 Absolute Neutrophils 4.4 Absolute Lymphocytes 3.1 Absolute Monocytes 0.5 Absolute Eosinophils 0.1 Absolute Basophils 0.0 Absolute Immature Granulocytes 0.0 Absolute NRBCs 0.0 COMPREHENSIVE METABOLIC PANEL - Abnormal Sodium 135 Potassium 3.5 Carbon Dioxide (CO2) 24 Anion Gap 8 Urea Nitrogen 6.3 Creatinine 0.74 GFR Estimate >90 Calcium 8.9 Chloride 103 Glucose 103 (*) Alkaline Phosphatase 200 (*) AST 33 ALT 79 (*) Protein Total 7.5 Albumin 4.1 Bilirubin Total <0.2 LIPASE - Normal Lipase 33 HCG QUANTITATIVE - Normal hCG Quantitative <1 CT Abdomen Pelvis w/o Contrast Final Result IMPRESSION: No findings to account for left flank pain. No sequelae of trauma. Lumbar spine XR, 2-3 views Final Result IMPRESSION: 5 nonrib-bearing lumbar type vertebral bodies and partially lumbarized S1 segment. Minimal rightward convex curvature of the lumbar spine and Lumbar spine lordosis is maintained. Lumbar vertebral body heights are maintained. Mild loss of disc space height at L5-S1. Intervertebral disc space heights are otherwise maintained. Surgical clips over the right upper quadrant of the abdomen. Chest XR, PA & LAT Final Result IMPRESSION: No acute cardiopulmonary disease. No visible acute displaced fracture. No pneumothorax or effusion. Head CT w/o contrast Final Result IMPRESSION: 1. No acute intracranial process. Emergency Department Course & Assessments: Interventions: Medications acetaminophen (TYLENOL) tablet 1,000 mg (has no administration in time range) sodium chloride 0.9% BOLUS 1,000 mL (0 mLs Intravenous Stopped 12/19/23 0730) lactated ringers BOLUS 1,000 mL (0 mLs Intravenous Stopped 12/19/23 0945) ondansetron (ZOFRAN) injection 4 mg (4 mg Intravenous Not Given 12/19/23 0822) morphine (PF) injection 4 mg (4 mg Intravenous $Given 12/19/23 0828) diphenhydrAMINE (BENADRYL) injection 12.5 mg (12.5 mg Intravenous $Given 12/19/23 0827) lactated ringers BOLUS 1,000 mL (0 mLs Intravenous Stopped 12/19/23 1237) Assessments, Independent Interpretation, Consult/Discussion of ManagementTests: ED Course as of 12/19/23 1330 Sun Dec 19, 2023 0629 I obtained history and examined the patient as noted above. Chest x-ray unremarkable. Lumbar x-ray unremarkable. CT head no bleed. Social Determinants of Health affecting care: None Disposition: The patient was discharged to home. Impression & Plan Medical Decision Making: Patient presenting after episode of syncope. Now with return to baseline mental status. Syncopal episode appears vasovagal in nature versus orthostatic. Chronic conditions complicating -gastroparesis with frequent episodes of dehydration. DDx considered, but not limited to cardiogenic syncope, bleed, vascular injury, CVA, however evaluation not consistent with these etiologies. Vital signs initially notable for low-grade tachycardia. Exam notable for tenderness over the left side of the ribs that is reproducible. ECG independently interpreted - unremarkable. 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 Ordered basic labs which were only notable for baseline anemia. Is not endorsing any current bleeding. Patient then stated that her pain was very severe on the left side of her ribs and was tender to any type of movement. She cannot manage the pain. She was also nauseas. Therefore gave a low-dose of morphine and Benadryl. Her blood pressure readings were in the high 80,s low 90s so I ordered CT scanto rule out a bleed and also CT scan of the head due to being on anticoagulation. CT head unremarkab le. CT abdomen/pelvis no bleed. Patient was sleeping comfortably on repeat assessments. She had blood pressure readings that were low but then I noticed that the blood pressure cuff that was being used was much too large for her arm. She was given IV fluids and I rechecked it with an appropriate sized blood pressure cuff and her blood pressure was within normal meds. She states she normally has blood pressures in the low 100s. Blood pressure 108/72. Not tachycardic. Patient passed trial of ambulation. She is feeling improved and ready to go home. Patient was evaluated for acute medical emergencies. Based on my clinical assessment, I do not think any further acute management or work-up is required. Patient stable for discharge. Given strict return precautions. All questions answered. Patient content with plan. Recommended PCP follow-up in 2-3 days. Diagnosis: ICD-10-CM 1. Syncope and collapse R55 2. Left flank pain R10.9 Discharge Medications: Discharge Medication List as of 12/19/2023 12:37 PM Scribe Disclosure: IYohan, am serving as a scribe at 7:39 AM on 12/19/2023 to document services personally performed by Nehemiah Gonzales MD based on my observations and the provider's statements to me. 12/19/2023 Nehemiah Gonzales MD Foss, Kevin, MD 12/19/23 7022 LATOR OPERATOR documented in this encounter Plan of Treatment Upcoming Encounters Date Type Department Care Team (Late st Contact Info) Description 05/09/2024 10:00 AM CDT Office Visit [address] [address] [place] [id number] [address] [place] [id number] documented as of this encounter Procedures Procedure Name Priority Date/Time Associated Diagnosis Comments CT ABDOMEN PELVIS W/O CONTRAST STAT 12/19/2023 8:44 AM REGULATOR OPERATOR XR LUMBAR SPINE 2/3 VIEWS STAT 12/19/2023 7:39 AM REGULATOR OPERATOR XR CHEST 2 VIEWS STAT 12/19/2023 7:[address] HEAD W/O CONTRAST STAT 12/19/2023 7:24 AM REGULATOR OPERATOR CBC WITH PLATELETS AND DIFFERENTIAL STAT 12/19/2023 6:15 AM REGULATOR OPERATOR CBC WITH PLATELETS & DIFFERENTIAL STAT 12/19/2023 6:15 AM REGULATOR OPERATOR LIPASE STAT 12/19/2023 6:15 AM REGULATOR OPERATOR HCG QUANTITATIVE STAT 12/19/2023 6:15 AM REGULATOR OPERATOR COMPREHENSIVE METABOLIC PANEL STAT 12/19/2023 6:15 AM REGULATOR OPERATOR CK TOTAL STAT 12/19/2023 6:15 AM REGULATOR OPERATOR BASIC METABOLIC PANEL STAT 12/19/2023 6:15 AM REGULATOR OPERATOR EKG 12-LEAD, TRACING ONLY STAT 12/19/2023 3:59 AM REGULATOR OPERATOR documented in this encounter Results * CT Abdomen Pelvis w/o Contrast (12/19/2023 8:44 AM REGULATOR OPERATOR) Anatomical Region Laterality Modality Abdomen/Pelvis, SUBRAD CT ESSIE DY, UMP CT ABDOMEN PELVIS, RAD CT Computed Tomography 12/19/2023 8:44 AM REGULATOR OPERATOR Impressions 12/19/2023 8:55 AM REGULATOR OPERATOR IMPRESSION: No findings to account for left flank pain. No sequelae of trauma. Narrative 12/19/2023 8:55 AM REGULATOR OPERATOR EXAM: CT ABDOMEN PELVIS W/O CONTRAST LOCATION: [facility] DATE: 12/19/2023 INDICATION: left flank pain, on eliquis, borderline hypotension after fall COMPARISON: 11/11/2023 TECHNIQUE: CT scan of the abdomen and pelvis was performed without IV contrast. Multiplanar reformats were obtained. Dose reduction techniques were used. CONTRAST: None. FINDINGS: LOWER CHEST: Hypoattenuation of blood pool relative to myocardium, suggesting anemia. HEPATOBILIARY: Cholecystectomy. PANCREAS: Normal. SPLEEN: Normal. ADRENAL GLANDS: Normal. KIDNEYS/BLADDER: Normal. No urinary stones or hydroureter. BOWEL: Normal. LYMPH NODES: Normal. VASCULATURE: Normal. PELVIC ORGANS: Hysterectomy. Pelvic phleboliths. MUSCULOSKELETAL: Calcified injection granuloma left buttock. Transitional lumbosacral vertebra. No fractures. Procedure Note Tu Brownlee MD - 12/19/2023 EXAM: CT ABDOMEN PELVIS W/O CONTRAST LOCATION: [facility] DATE: 12/19/2023 INDICATION: left flank pain, on eliquis, borderline hypotension afterfall COMPARISON: 11/11/2023 TECHNIQUE: CT scan of the abdomen and pelvis was performed without IVcontrast. Multiplanar reformats were obtained. Dose reduction techniqueswere used. CONTRAST: None. FINDINGS: LOWER CHEST: Hypoattenuation of blood pool relative to myocardium,suggesting anemia. HEPATOBILIARY: Cholecystectomy. PANCREAS: Normal. SPLEEN: Normal. ADRENAL GLANDS: Normal. KIDNEYS/BLADDER: Normal. No urinary stones or hydroureter. BOWEL: Normal. LYMPH NODES: Normal. VASCULATURE: Normal. PELVIC ORGANS: Hysterectomy. Pelvic phleboliths. MUSCULOSKELETAL: Calcified injection granuloma left buttock. Transitionallumbosacral vertebra. No fractures. IMPRESSION: No findings to account for left flank pain. No sequelae of trauma. Nehemiah Gonzales MD IMG CT ORDERABLES * Lumbar spine XR, 2-3 views (12/19/2023 7:39 AM REGULATOR OPERATOR) Anatomical Region Laterality Modality Spine, T-spine, L-spine, Abdomen/Pelvis Digital Radiography 12/19/2023 7:39 AM REGULATOR OPERATOR Impressions 12/19/2023 7:44 AM REGULATOR OPERATOR IMPRESSION: 5 nonrib-bearing lumbar type vertebral bodies and partially lumbarized S1 segment. Minimal rightward convex curvature of the lumbar spine and Lumbar spine lordosis is maintained. Lumbar vertebral body heights are maintained. Mild loss of disc space height at L5-S1. Intervertebral disc space heights are otherwise maintained. Surgical clips over the right upper quadrant of the abdomen. Narrative 12/19/2023 7:44 AM REGULATOR OPERATOR EXAM: XR LUMBAR SPINE 2/3 VIEWS LOCATION: [facility] DATE: 12/19/2023 INDICATION: Low back pain. COMPARISON: None. Procedure Note Hai Flores MD - 12/19/2023 EXAM: XR LUMBAR SPINE 2/3 VIEWS LOCATION: [facility] DATE: 12/19/2023 INDICATION: Low back pain. COMPARISON: None. IMPRESSION: 5 nonrib-bearing lumbar type vertebral bodies and partiallylumbarized S1 segment. Minimal rightward convex curvature of the lumbarspine and Lumbar spine lordosis is maintained. Lumbar vertebral bodyheights are maintained. Mild loss of disc space height at L5-S1. Intervertebral disc space heights are otherwisemaintained. Surgical clips over the right upper quadrant of the abdomen. Nehemiah Gonzales MD IMG DIAGNOSTIC IMAGI NG ORDERABLES * Chest XR, PA & LAT (12/19/2023 7:39 AM REGULATOR OPERATOR) Anatomical Region Laterality Modality Chest Digital Radiogra phy 12/19/2023 7:39 AM REGULATOR OPERATOR Impressions 12/19/2023 11:34 AM REGULATOR OPERATOR IMPRESSION: No acute cardiopulmonary disease. No visible acute displaced fracture. No pneumothorax or effusion. Narrative 12/19/2023 11:34 AM REGULATOR OPERATOR EXAM: XR CHEST 2 VIEWS LOCATION: [facility] DATE: 12/19/2023 INDICATION: Left rib pain after fall. COMPARISON: 12/13/2023. Procedure Note Seth Moreau MD - 12/19/2023 EXAM: XR CHEST 2 VIEWS LOCATION: [facility] DATE: 12/19/2023 INDICATION: Left rib pain after fall. COMPARISON: 12/13/2023. IMPRESSION: No acute cardiopulmonary disease. No visible acute displacedfracture. No pneumothorax or effusion. Nehemiah Gonzales MD [facility] [place] ORDERABLES * Head CT w/o contrast (12/19/2023 7:24 AM REGULATOR OPERATOR) Anatomical Region Laterality Modality Head, SUBRAD CT NEURO, SUBRA D CT NEURO, UMP CT NEURO, RAD CT Computed Tomography 12/19/2023 7:24 AM REGULATOR OPERATOR Impressions 12/19/2023 7:28 AM REGULATOR OPERATOR IMPRESSION: 1. ??No acute intracranial process. Narrative 12/19/2023 7:28 AM REGULATOR OPERATOR EXAM: CT HEAD W/O CONTRAST LOCATION: [facility] DATE: 12/19/2023 INDICATION: Head injury COMPARISON: CT head without contrast 12/13/2023. TECHNIQUE: Routine CT Head without IV contrast. Multiplanar reformats. Dose reduction techniques were used. FINDINGS: INTRACRANIAL CONTENTS: No intracranial hemorrhage, extraaxial collection, or mass effect. ??No CT evidence of acute infarct. Normal parenchymal attenuation. Normal ventricles and sulci. VISUALIZED ORBITS/SINUSES/MASTOIDS: No intraorbital abnormality. No paranasal sinus mucosal disease. No middle ear or mastoid effusion. BONES/SOFT TISSUES: No acute abnormality. Procedure Note Hai Flores MD - 12/19/2023 EXAM: CT HEAD W/O CONTRAST LOCATION: [facility] DATE: 12/19/2023 INDICATION: Head injury COMPARISON: CT head without contrast 12/13/2023. TECHNIQUE: Routine CT Head without IV contrast. Multiplanar reformats.Dose reduction techniques were used. FINDINGS: INTRACRANIAL CONTENTS: No intracranial hemorrhage, extraaxial collection,or mass effect. No CT evidence of acute infarct. Normal parenchymalattenuation. Normal ventricles and sulci. VISUALIZED ORBITS/SINUSES/MASTOIDS: No intraorbital abnormality. Noparanasal sinus mucosal disease. No middle ear or mastoid effusion. BONES/SOFT TISSUES: No acute abnormality. IMPRESSION: 1. No acute intracranial process. [place] WILEY CT ORDERABLES * (ABNORMAL) Comprehensive metabolic panel (12/19/2023 6:15 AM REGULATOR OPERATOR) [facility] Sodium 135 135 - 145 mmol/L 12/19/2023 7:18 AM [facility] Comment: Reference intervals for this test were updated on 08/24/2023 to more accurately reflect our healthy population. There may be differences in the flagging of prior results with similar values performed with this method. Interpretation of those prior results can be made in the context of the updated reference intervals. Reference intervals for this test were updated on 08/24/2023 to more accurately reflect our healthy population. There may be differences in the flagging of prior results with similar values performed with this method. Interpretation of those prior results can be made in the context of the updated reference intervals. Potassium 3.5 3.4 - 5.3 mmol/L 12/19/2023 7:18 AM [facility] Carbon Dioxide (CO2) 24 22 - 29 mmol/L 12/19/2023 7:18 AM [facility] Anion Gap 8 7 - 15 mmol/L 12/19/2023 7:18 AM [facility] Urea Nitrogen 6.3 6.0 - 20.0 mg/dL 12/19/2023 7:18 AM [facility] Creatinine 0.74 0.51 - 0.95 mg/dL 12/19/2023 7:18 AM [facility] GFR Estimate >90 >60 mL/min/1. 73m2 12/19/2023 7:18 AM [facility] Calcium 8.9 8.6 - 10.0 mg/dL 12/19/2023 7:18 AM [facility] Chloride 103 98 - 107 mmol/L 12/19/2023 7:18 AM [facility] Glucose 103(H) 70 - 99 mg/dL 12/19/2023 7:18 AM [facility] Alkaline Phosphatase 200(H) 40 - 150 U/L 12/19/2023 7:18 AM [facility] Comment:Reference intervals for this test were updated on 10/12/2023 to more accurately reflect our healthy population. There may be differences in the flagging of prior results with similar values performed with this method. Interpretation of those prior results can be made in the context of the updated reference intervals. AST 33 0 - 45 U/L 12/19/2023 7:18 AM [facility] Comment:Reference intervals for this test were updated on 05/10/2023 to more accurately reflect our healthy population. There may be differences in the flagging of prior results with similar values performed with this method. Interpretation of those prior results can be made in the context of the updated reference intervals. ALT 79(H) 0 - 50 U/L 12/19/2023 7:18 AM REGULATOR OPERATOR [facility] Comment:Reference intervals for this test were updated on 05/10/2023 to more accurately reflect our healthy population. There may be differences in the flagging of prior results with similar values performed with this method. Interpretation of those prior results can be made in the context of the updated reference intervals. Protein Total 7.5 6.4 - 8.3 g/dL 12/19/2023 7:18 AM REGULATOR OPERATOR [facility] Albumin 4.1 3.5 - 5.2 g/dL 12/19/2023 7:18 AM REGULATOR OPERATOR [facility] Bilirubin Total <0.2 <=1.2 mg/dL 12/19/2023 7:18 AM REGULATOR OPERATOR [facility] Blood BLOOD SPECIMEN / Unknown Venipuncture / Unknown 12/19/2023 6:15 AM REGULATOR OPERATOR 12/19/2023 6:22 AM REGULATOR OPERATOR Nehemiah Gonzales MD LAB - BLOOD ORDERABL ES LABORATORY [facility] [address] Lab (1st floor, no room number) [place] [address] [place] [phone] * HCG quantitative (12/19/2023 6:15 AM REGULATOR OPERATOR) hCG Quantitative <1 <5 mIU/mL 12/19/19 6:56 AM REGULATOR OPERATOR [facility] Comment: Adult: 0-5 mIU/mL for healthy non- person Neonates: Should be within normal ranges by 2 days after Blood BLOOD SPECIMEN / Unknown Venipuncture / Unknown 12/19/2023 6:15 AM REGULATOR OPERATOR 12/19/2023 6:22 AM REGULATOR OPERATOR Nehemiah Gonzales MD LAB - BLOOD ORDERABL ES LABORATORY [facility] [address] Lab (1st floor, no room number) [place] [address], [facility] [phone] * Lipase (12/19/2023 6:15 AM REGULATOR OPERATOR) Pathologist [facility] Lipase 33 13 - 60 U/L 12/19/2023 6:50 AM REGULATOR OPERATOR LABORATORY Blood BLOOD SPECIMEN / Unknown Venipuncture / Unknown 12/19/2023 6:15 AM REGULATOR OPERATOR 12/19/2023 6:22 AM REGULATOR OPERATOR Nehemiah Gonzales MD LAB - BLOOD ORDERABL ES RH LABORATORY [facility] [address] Lab (1st floor, no room number) [place] [address], [facility] [phone] * (ABNORMAL) CBC with platelets and differential (12/19/2023 6:15 AM REGULATOR OPERATOR) Pathologist [facility] WBC Count 8.1 4.0 - 11.0 10e3/uL 12/19/2023 6:26 AM REGULATOR OPERATOR RH LABORATORY RBC Count 3.77(L) 3.80 - 5.20 10e6/uL 12/19/2023 6:26 AM REGULATOR OPERATOR RH LABORATORY Hemoglobin 9.4(L) 11.7 - 15.7 g/dL 12/19/2023 6:26 AM REGULATOR OPERATOR RH LABORATORY Hematocrit 31.4(L) 35.0 - 47.0 % 12/19/2023 6:26 AM REGULATOR OPERATOR RH LABORATORY MCV 83 78 - 100 fL 12/19/2023 6:26 AM REGULATOR OPERATOR RH LABORATORY MCH 24.9(L) 26.5 - 33.0 pg 12/19/2023 6:26 AM REGULATOR OPERATOR RH LABORATORY MCHC 29.9(L) 31.5 - 36.5 g/dL 12/19/2023 6:26 AM REGULATOR OPERATOR RH LABORATORY RDW 23.9(H) 10.0 - 15.0 % 12/19/2023 6:26 AM REGULATOR OPERATOR RH LABORATORY Platelet Count 461(H) 150 - 450 10e3/uL 12/19/2023 6:26 AM REGULATOR OPERATOR RH LABORATORY % Neutrophils 54 % 12/19/2023 6:26 AM REGULATOR OPERATOR RH LABORATORY % Lymphocytes 38 % 12/19/2023 6:26 AM REGULATOR OPERATOR RH LABORATORY % Monocytes 6 % 12/19/2023 6:26 AM REGULATOR OPERATOR RH LABORATORY % Eosinophils 2 % 12/19/2023 6:26 AM REGULATOR OPERATOR RH LABORATORY % Basophils 0 % 12/19/2023 6:26 AM REGULATOR OPERATOR RH LABORATORY % Immature Granulocytes 0 % 12/19/2023 6:26 AM REGULATOR OPERATOR RH LABORATORY NRBCs per 100 WBC 0 <1 /100 024 6:26 AM REGULATOR OPERATOR RH LABORATORY Absolute Neutrophils 4.4 1.6 - 8.3 10e3/uL 12/19/2023 6:26 AM REGULATOR OPERATOR RH LABORATORY Absolute Lymphocytes 3.1 0.8 - 5.3 10e3/uL 12/19/2023 6:26 AM REGULATOR OPERATOR RH LABORATORY Absolute Monocytes 0.5 0.0 - 1.3 10e3/uL 12/19/2023 6:26 AM REGULATOR OPERATOR RH LABORATORY Absolute Eosinophils 0.1 0.0 - 0.7 10e3/uL 12/19/2023 6:26 AM REGULATOR OPERATOR RH LABORATORY Absolute Basophils 0.0 0.0 - 0.2 10e3/uL 12/19/2023 6:26 AM REGULATOR OPERATOR RH LABORATORY Absolute Immature Granulocytes 0.0 <=0.4 10e3/uL 12/19/2023 6:26 AM REGULATOR OPERATOR RH LABORATORY Absolute NRBCs 0.0 10e3/uL 12/19/2023 6:26 AM REGULATOR OPERATOR RH LABORATORY Blood BLOOD SPECIMEN / Unknown Venipuncture / Unknown 12/19/2023 6:15 AM REGULATOR OPERATOR 12/19/2023 6:22 AM REGULATOR OPERATOR Sam Alvarado MD LAB - BLOOD ORDERABL ES RH LABORATORY [facility] [address] Lab (1st floor, no room number) [place] [address], [facility] [phone] * (ABNORMAL) Basic metabolic panel (BMP) (12/19/2023 6:15 AM REGULATOR OPERATOR) Sodium 135 135 - 145 mmol/L 12/19/2023 6:50 AM REGULATOR OPERATOR RH LABORATORY Comment:Reference intervals for this test were updated on 08/24/2023 to more accurately reflect our healthy population. There may be differences in the flagging of prior results with similar values performed with this method. Interpretation of those prior results can be made in the context of the updated reference intervals. Potassium 3.5 3.4 - 5.3 mmol/L 12/19/2023 6:50 AM [facility] Chloride 103 98 - 107 mmol/L 12/19/2023 6:50 AM [facility] Carbon Dioxide (CO2) 24 22 - 29 mmol/L 12/19/2023 6:50 AM [facility] Anion Gap 8 7 - 15 mmol/L 12/19/2023 6:50 AM [facility] Urea Nitrogen 6.3 6.0 - 20.0 mg/dL 12/19/2023 6:50 AM [facility] Creatinine 0.74 0.51 - 0.95 mg/dL 12/19/2023 6:50 AM [facility] GFR Estimate >90 >60 mL/min/1. 73m2 12/19/2023 6:50 AM [facility] Calcium 8.9 8.6 - 10.0 mg/dL 12/19/2023 6:50 AM [facility] Glucose 103(H) 70 - 99 mg/dL 12/19/2023 6:50 AM REGULATOR OPERATOR LABORATORY Blood BLOOD SPECIMEN / Unknown Venipuncture / Unknown 12/19/2023 6:15 AM REGULATOR OPERATOR 12/19/2023 6:22 AM REGULATOR OPERATOR Sam Alvarado MD LAB - BLOOD ORDERABL ES LABORATORY [facility] [address] [facility] Lab (1st floor, no room number) [place] [address], [facility] [phone] * (ABNORMAL) CK total (12/19/2023 6:15 AM REGULATOR OPERATOR) Pathologist [facility] CK 21(L) 26 - 192 U/L 12/19/2023 6:50 AM [facility] Blood BLOOD SPECIMEN / Unknown Venipuncture / Unknown 12/19/2023 6:15 AM REGULATOR OPERATOR 12/19/2023 6:22 AM REGULATOR OPERATOR Sam Alvarado MD LAB - BLOOD ORDERABL ES LABORATORY [facility] [address] Lab (1st floor, no room number) [place] [address], [facility] [phone] * EKG 12-lead, tracing only (12/19/2023 3:59 AM REGULATOR OPERATOR) Systolic Blood Pressure mmHg RADIOLOGY RESULTS Diastolic Blood Pressure mmHg RADIOLOGY RESULTS Ventricular Rate 89 BPM RAD IOLOGY RESULTS Atrial Rate 89 BPM RADIOLOG Y RESULTS WA Interval 176 ms RADIOLOG Y RESULTS QRS Duration 70 ms RADIOLO GY RESULTS QT 360 ms RADIOLOGY RESULTS QTc 438 ms RADIOLOGY RESULTS P [place] 50 degrees RADIOLOGY RESULTS R AXIS 32 degrees RADIOLOGY RESULTS T [place] 26 degrees RADIOLOGY RESULTS Interpretation ECG Sinus rhythm Low voltage QRS Borderline ECG When compared with ECG of 12-DEC-2023 23:38, Criteria for Anterior infarct are no longer Present Confirmed by - EMERGENCY ROOM, PHYSICIAN ([id number]), technical editor VALENTE BROWNING (Jessica) on 12/20/2023 6:38:34 AM RADIOLOGY RESULTS 12/19/2023 3:59 AM REGULATOR OPERATOR 12/20/2023 6:38 AM REGULATOR OPERATOR Sam Alvarado MD ECG ORDERABLES Performing Organization Address [facility] Co de Phone Number RADIOLOGY RESULTS documented in this encounter Visit Diagnoses Diagnosis Syncope and collapse Left flank pain Abdominal pain, unspecified site documented in this encounter Administered Medications Inactive Administered Medications - up to 3 most recent administrations Medication Order MAR Action Action Date Dose Rate Site diphenhydrAMINE (BENADRYL) injection 12.5 mg 12.5 mg, Intravenous, ONCE, On 12/19/23 at 0820, For 1 dose, Protect from light. $Given 12/19/2023 8:27 AM REGULATOR OPERATOR 12.5 mg lactated ringers BOLUS 1,000 mL Intravenous, 1,000 mL, ONCE, at 1,000 mL/hr, Administer over 1 Hours, On 12/19/23 at 0755, For 1 dose $New Bag 12/19/2023 8:22 AM REGULATOR OPERATOR 1,000 mLs 1000 mL/hr lactated ringers BOLUS 1,000 mL Intravenous, 1,000 mL, ONCE, at 1,000 mL/hr, Administer over 1 Hours, On 12/19/23 at 1040, For 1 dose $New Bag 12/19/2023 10:44 AM REGULATOR OPERATOR 1,000 mLs 1000 mL/hr morphine (PF) injection 4 mg 4 mg, Intravenous, ONCE, On 12/19/23 at 0820, For 1 dose $Given 12/19/2023 8:28 AM REGULATOR OPERATOR 4 mg sodium chloride 0.9% BOLUS 1,000 mL Intravenous, 1,000 mL, ONCE, at 1,000 mL/hr, Administer over 1 Hours, On 12/19/23 at 0530, For 1 dose $New Bag 12/19/2023 6:19 AM REGULATOR OPERATOR 1,000 mLs 1000 mL/hr documented in this encounter Active and Recently Administered Medications Times are shown in REGULATOR OPERATOR. Scheduled Medication Order 12/17/2023 12/18/2023 12/19/2023 acetaminophen (TYLENOL) tablet 1,000 mg 1,000 mg, Oral, ONCE, On 12/19/23 at 0635, For 1 dose, Maximum acetaminophen dose from all sources = 75 mg/kg/day not to exceed 4 gram 0635 (Canceled Entry - Provider: Orders Generic Provider - Comment: Automatically canceled at discontinue of medication order) diphenhydrAMINE (BENADRYL) injection 12.5 mg (COMPLETED) 12.5 mg, Intravenous, ONCE, On 12/19/23 at 0820, For 1 dose, Protect from light. 0827 ($Given - Provi rosita: Sandi Logan RN) lactated ringers BOLUS 1,000 mL (COMPLETED) Intravenous, 1,000 mL, ONCE, at 1,000 mL/hr, Administer over 1 Hours, On 12/19/23 at 0755, For 1 dose 0822 ($New Bag - Pro vider: Sandi Logan RN)0945 (Stopped - Provider: Sandi Logan RN) lactated ringers BOLUS 1,000 mL (COMPLETED) Intravenous, 1,000 mL, ONCE, at 1,000 mL/hr, Administer over 1 Hours, On 12/19/23 at 1040, For 1 dose 1044 ($New Bag - Pro vider: Sandi Logan RN)1237 (Stopped - Provider: Sandi Logan RN) morphine (PF) injection 4 mg (COMPLETED) 4 mg, Intravenous, ONCE, On 12/19/23 at 0820, For 1 dose 0828 ($Given - Provi rosita: Sandi Logan RN) sodium chloride 0.9% BOLUS 1,000 mL (COMPLETED) Intravenous, 1,000 mL, ONCE, at 1,000 mL/hr, Administer over 1 Hours, On 12/19/23 at 0530, For 1 dose 0619 ($New Bag - Pro vider: Ravindra Lindo RN)0730 (Stopped - Provider: Sandi Logan RN) 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 Assessment Noted Time PHQ-9 Depression Total Score: 3 05/27/20 23 5:00 PM CDT documented as of this encounter Care Teams Womens Health Nurse Practitioner Relationship Specialty Start [place] [address] [address] [address] PCP - General Family Medicine 04/22/23 [place] [address] [address] [address] Assigned Pain Medication Provider 12/07/22 [place] [address] [address] [address] Assigned PCP 01/23/23 [place] [address] [address] Assigned Musculoskeletal Provider 01/23/23 Gregorio Dalton PA-C [address] [address] Assigned Surgical Provider 05/22/23 Kingsley Garcia MD [address] [place] [address] Assigned Heart and Vascular Provider 08/07/23 [place] [address] [address] [address] Family Medicine 09/10/23 Master Shea PA-C [address] [place] [address] [address] Physician Long Lines Operator Gastroenterology 09/10/23 Allyssa Justice MD [facility] [address] [place] [address] Hematology & Oncology 12/10/23 documented as of this encounter
--- OUTSIDE RECORDS SUMMARY | 2024-03-25 18:21 | XMS_ITS | Encounter Summary ---
Author Name Unknown Organization [place] Address [address] [place] [address] Care Team Providers Care Parts Data Writer Name Role Phone Segundo Mcclelland MD Unavailable [phone] Segundo Mcclelland MD Unavailable [phone] Qamar Jackson MD Unavailable Segundo Mcclelland MD Primary Care Provider + Gregorio Dalton PA-C Unavailable [phone] Kingsley Garcia MD Unavailable + [phone] Segundo Mcclelland MD Unavailable [phone] Master Shea PA-C Unavailable Allyssa Justice MD Unavailable [phone] Encounter Details Date Type Department Care Team (Latest Contact Info) Description 12/18/2023 Travel Social History Tobacco Use Types Packs/Day [...] AM CDT Office Visit [facility] [place] [address] [address] [place] [address] [address] [id number] documented as of this encounter Visit Diagnoses Not on file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 Assessment Noted Time PHQ-9 Depression Total Score: 3 05/27/20 23 5:00 PM CDT documented as of this encounter Care Teams Parts Data Writer Relationship Specialty Start [place] [address] [address] [address] PCP - General Family Medicine 04/22/23 [place] [address] [address] [address] Assigned Pain Medication Provider 12/07/22 [place] [address] [place] [address] Assigned PCP 01/23/23 [place] [address] [place] [address] Assigned Musculoskeletal Provider 01/23/23 Gregorio Dalton PA-C [address] 497475 Assigned Surgical Provider 05/22/23 Kingsley Garcia MD [address] [place] 020785 Assigned Heart and Vascular Provider 08/07/23 [place] [address] [address] [address] Family Medicine 09/10/23 Master Shea PA-C [address] [place] [address] Physician Substitute Teacher Gastroenterology 09/10/23 Allyssa Justice MD [facility] [address] [place] 218415 Hematology & Oncology 12/10/23 documented as of this encounter
--- OUTSIDE RECORDS SUMMARY | 2024-03-25 18:21 | XMS_ITS | Encounter Summary ---
Author Name Unknown Organization [place] Address [facility] [facility] [place] [address] Care Team Providers Care Ramp Manager Name Role Phone Segundo Mcclelland MD Unavailable [phone] Segundo Mcclelland MD Unavailable [phone] Qamar Jackson MD Unavailable Segundo Mcclelland MD Primary Care Provider + Gregorio Dalton PA-C Unavailable [phone] Kingsley Garcia MD Unavailable + [phone] Segundo Mcclelland MD Unavailable [phone] Master Shea PA-C Unavailable Allyssa Justice MD Unavailable [phone] Genaro Christian MD Unavailable + [phone] Master Shea-C Unavailable Sienna Guillermo DO Unavailable [phone] Allyssa Justice MD Unavailable [phone] Encounter Details Date Type Department Care Team (Late st Contact Info) Description 12/17/2023 MyC Medical Advice [facility] [address] [place] [address] [place] [address] [place] [address] Social History Tobacco Use Types [...] CDT Office Visit [facility] [address] [place] [address] [place] [address] [place] [address] documented as of this encounter Visit Diagnoses Not on file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 Rule Out COVID-19 01/18/2024 01/18/2024 01/18/2024 8:53 PM BLADDER TRIMMER Rule Out COVID-19 01/28/2024 01/28/2024 01/28/2024 10:22 PM BLADDER TRIMMER Rule Out COVID-19 02/17/2024 02/17/2024 02/17/2024 5:07 PM CDT Assessment Noted Time PHQ-9 Depression Total Score: 3 05/27/20 5:00 PM CDT documented as of this encounter Care Teams Ramp Manager Relationship Specialty Start [place] [address] [address] [address] PCP - General Family Medicine 04/22/23 [place] [address] [place] [address] Assigned Pain Medication Provider 12/07/22 [place] [address] [address] [id number] Assigned PCP 01/23/23 [place] [address] [address] Assigned Musculoskeletal Provider 01/23/23 Gregorio Dalton PA-C [address] 132605 Assigned Surgical Provider 05/22/23 Kingsley Garcia MD [address] [place] [address] Assigned Heart and Vascular Provider 08/07/23 [place] [address] [place] [address] Family Medicine 09/10/23 Master Shea PA-C [address] [place] [address] Physician Field Marketing Manager Gastroenterology 09/10/23 Allyssa Justice MD [facility] [address] [place] 928735 Hematology & Oncology 12/10/23 Genaro Christian MD [address] [place] [address] [id number] Cardiovascular Disease 12/22/23 Master Shea PA-C [address] [place] [address] Assigned Gastroenterology Provider 12/23/23 Sienna Guillermo DO [address] [place] [address] Physician Cardiovascular Disease 01/18/24 Allyssa Justice MD [facility] [address] [place] 823025 Assigned Cancer Care Provider 03/21/24 documented as of this encounter
--- OUTSIDE RECORDS SUMMARY | 2024-03-25 18:21 | XMS_ITS | Encounter Summary ---
Author Name Unknown Organization [place] Address [address] [facility] [place] [address] Care Team Providers Care Cash Checker Name Role Phone Segundo Mcclelland MD Unavailable [phone] Segundo Mcclelland MD Unavailable [phone] Qamar Jackson MD Unavailable Segundo Mcclelland MD Primary Care Provider + Gregorio Dalton PA-C Unavailable [phone] Kingsley Garcia MD Unavailable + [phone] Segundo Mcclelland MD Unavailable [phone] Master Shea PA-C Unavailable Allyssa Justice MD Unavailable [phone] Reason for Visit * Reason Comments Other Entered automaticall y [facility] Encounter Details Date Type Department Care Team (Late st Contact Info) Description 12/17/2023 12:55 AM ORGAN TEACHER E-Visit [facility] [address] [place] [address] [place] [address] [place] [address] Other (Entered automatically based on [...] Telephone Encounter - Segundo Mcclelland MD - 12/17/2023 8:31 AM ORGAN TEACHER Provider E-Visit time total (minutes): 20 N TEACHER documented in this encounter Plan of Treatment Upcoming Encounters Date Type Department Care Team (Late st Contact Info) Description 05/09/2024 10:00 AM CDT Office Visit [facility] [address] [place] [address] [place] [address] [place] [address] documented as of this encounter Visit Diagnoses Diagnosis Pleuritic chest pain- Primary Painful respiration 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 Assessment Noted Time PHQ-9 Depression Total Score: 3 05/27/20 23 5:00 PM CDT documented as of this encounter Care Teams Cash Checker Relationship Specialty Start [place] [address] [address] [address] PCP - General Family Medicine 04/22/23 [place] [address] [address] [address] Assigned Pain Medication Provider 12/07/22 [place] [address] [address] [address] Assigned PCP 01/23/23 [place] [address] [address] [address] Assigned Musculoskeletal Provider 01/23/23 Gregorio Dalton PA-C [address] [address] Assigned Surgical Provider 05/22/23 Kingsley Garcia MD [address] [place] [address] Assigned Heart and Vascular Provider 08/07/23 [place] [address] [address] [address] Family Medicine 09/10/23 Master Shea PA-C [address] [facility] [address] [place] [address] Physician Planning Consultant Gastroenterology 09/10/23 Allyssa Justice MD [facility] [address] [place] [address] [address] [address] Hematology & Oncology 12/10/23 documented as of this encounter
--- OUTSIDE RECORDS SUMMARY | 2024-03-25 18:21 | XMS_ITS | Encounter Summary ---
Author Name Unknown Organization [place] Address [address] [place] [address] Care Team Providers Care Nuclear Scientist Name Role Phone Segundo Mcclelland MD Unavailable [phone] Segundo Mcclelland MD Unavailable [phone] Qamar Jackson MD Unavailable Segundo Mcclelland MD Primary Care Provider + Gregorio Dalton PA-C Unavailable [phone] Kingsley Garcia MD Unavailable + [phone] Segundo Mcclelland MD Unavailable [phone] Master Shea PA-C Unavailable Allyssa Justice MD Unavailable [phone] Encounter Details Date Type Department Care Team (Latest Contact Info) Description 12/17/2023 Travel Social History Tobacco Use Types Packs/Day [...] Description 05/09/2024 10:00 AM CDT Office Visit [facility] [address] [address] [place] [address] [address] [id number] documented as of this encounter Visit Diagnoses Not on file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 Assessment Noted Time PHQ-9 Depression Total Score: 3 05/27/20 23 5:00 PM CDT documented as of this encounter Care Teams Nuclear Scientist Relationship Specialty Start [place] [address] [address] [address] PCP - General Family Medicine 04/22/23 [place] [address] [address] [address] Assigned Pain Medication Provider 12/07/22 [place] [address] [place] [address] Assigned PCP 01/23/23 [place] [address] [place] [address] Assigned Musculoskeletal Provider 01/23/23 Gregorio Dalton PA-C [address] 232015 Assigned Surgical Provider 05/22/23 Kingsley Garcia MD [address] 461725 Assigned Heart and Vascular Provider 08/07/23 [place] [address] [address] [address] Family Medicine 09/10/23 Master Shea PA-C [address] [place] [address] Physician Green Building Materials Designer Gastroenterology 09/10/23 Allyssa Justice MD [facility] [address] [place] 524775 Hematology & Oncology 12/10/23 documented as of this encounter
--- OUTSIDE RECORDS SUMMARY | 2024-03-25 18:21 | XMS_ITS | Encounter Summary ---
Author Name Unknown Organization [place] Address [facility] [place] [address] Care Team Providers Care Biotechnician Name Role Phone Segundo Mcclelland MD Unavailable [phone] Segundo Mcclelland MD Unavailable [phone] Qamar Jackson MD Unavailable Segundo Mcclelland MD Primary Care Provider + Gregorio Dalton PA-C Unavailable [phone] Kingsley Garcia MD Unavailable + [phone] Segundo Mcclelland MD Unavailable [phone] Master Shea PA-C Unavailable Allyssa Justice MD Unavailable [phone] Reason for Visit * Reason Comments Neck Pain Encounter Details Date Type Department Care Team (Late st Contact Info) Description 12/18/2023 7:10 PM DYE HOUSE WORKER - 12/18/2023 10:46 PM DYE HOUSE WORKER Emergency [facility] Emergency Dept [address] [place] [address] Irvin Delacruz MD [facility] [address] [place] [id number] Chronic pain disorder; Chronic right-sided low back pain, unspecified whether sciatica present; Fall, initial encounter Discharge Disposition: Home or Self Care Social [...] Sign Reading Time Taken Comments Blood Pressure 134/92 12/18/2023 8:30 PM DYE HOUSE WORKER Pulse 118 12/18/2023 8:25 PM DYE HOUSE WORKER Temperature 36.9 ??C (98.5 ??F) 12/18/2023 8:25 PM CS T Respiratory Rate 18 12/18/2023 8:30 PM DYE HOUSE WORKER Oxygen Saturation 99% 12/18/2023 8:30 PM DYE HOUSE WORKER Inhaled Oxygen Concentration - - Weight 99.3 kg (219 lb) 12/18/2023 8:25 PM DYE HOUSE WORKER Height 167.6 cm (5' 6) 12/18/2023 8:25 PM DYE HOUSE WORKER Body Mass Index 35.35 12/18/2023 8:25 PM DYE HOUSE WORKER documented in this encounter Discharge Instructions * Attachments The following attachments cannot be sent through Care Everywhere. * Chronic Pain: Finding Your Strength: Video (Namibian) * Fall Prevention (Namibian) documented in this encounter Medications at Time [...] anxiety naloxone (NARCAN) 4 MG/0.1ML nasal spray Thompson 4 mg into one nostril alternating nostrils [...] as of this encounter ED Notes * Kory Devi RN - 12/18/2023 6:29 PM CST Pt was seen here yest, see note, pt has a care plan and c/o neck and back pain and leg weakness HOUSE WORKER * Irvin Delacruz MD - 12/18/2023 6:12 PM CST History Chief Complaint: Neck Pain The history is provided by the patient. Sandi Lopez is a 38 year old female on Eliquis with a history of atrial flutter, hypertension, asthma, opioid dependence, PE, CANELO, and bipolar disorder who presents to the emergency department for neck pain. The patient reports that yesterday she presented to the ED for abdominal pain following a colonoscopy. The patient had normal findings from colonoscopy as well as unremarkable lab and imaging results. She states that she passed out in the shower due to pain and nausea. Today the patient states that her abdominal pain has gotten worse and she has other symptoms. The patient states that her right leg gives out when she walks on it, and she also has severe neck pain and central back pain. She notes that she was on Dilaudid prior to her colonoscopy but she was unable to get morebecause she forgot to ask her primary care provider for the prescription. Sandi is only taking Tylenol to manage her pain with little effect. Independent Historian: None - Patient Only Review of External Notes: I reviewed her emergency room visit notes from yesterday as well as the 1 on December 16 which was 2days ago. She had negative imaging done on the . Labs are unremarkable at both visits. Medications: Eliquis Diphenhydramine Doxycycline Epinephrine Gabapentin Hydromorphone Naloxone Pantoprazole Zolpidem Past Medical History: Anemia Atrial flutter Depressive disorder Dysthymic disorder GERD Gastroparesis Hypertension Asthma Nephrolithiasis Kathleen-Mustafa tear Mesenteric lymphadenitis Opoid dependence PTSD PE POTS CANELO Bipolar 1 disorder Past Surgical History: Adenoidectomy Ankle surgery Appendectomy Back surgery Cholecystectomy ERCP Hysterectomy PICC placement Port placement and removal Oophorectomy Tonsillectomy and adenoidectomy Tubal ligation Physical Exam Patient Vitals for the past 24 hrs: BP Temp Temp src Pulse Resp SpO2 Height Weight 12/18/232029 (!) 134/92 -- -- -- 18 99 % -- -- 12/18/232024 (!) 134/92 98.5 ??F (36.9 ??C) Temporal 118 20 98 % 1.676 m (5' 6) 99.3 kg (219 lb) 12/18/23 1830 (!) 145/89 98.3 ??F (36.8 ??C) Temporal (!) 126 16 99 % -- -- Physical Exam Constitutional: Vital signs reviewed. Laying diagonally hanging off the bed. Very emotional. HEENT: Moist mucous membranes Cardiovascular: Tachycardic with regular rhythm Pulmonary/Chest: Breathing comfortably on room air. No audible wheezing Musculoskeletal/Extremities: No bony deformities. Moves all 4 extremities without difficulty. No midline neck or back tenderness.Light sensation to touch and pulses in the bilateral extremities. No pain over the right sciatic notch. 2+ patellar reflex on the right. Neurological: Alert. No focal deficits. Endo: No pitting edema Skin: No visible rash. Psychiatric: Pleasant. Emergency Department Course Laboratory: Labs Ordered and Resulted from Time of ED Arrival to Time of ED Departure - No data to display Emergency Department Course & Assessments: Interventions: Medications HYDROmorphone (DILAUDID) tablet 2 mg (2 mg Oral $Given 12/18/232025) HYDROmorphone (DILAUDID) tablet 2 mg (2 mg Oral $Given 12/18/232218) Assessments: 1940 I obtained history and examined the patient as noted above. 2206 I rechecked the patient and explained findings Independent Interpretation (X-rays, CTs, rhythm strip): None Consultations/Discussion of Management or Tests: None Social Determinants of Health affecting care: None Disposition: The patient was discharged to home. Impression & Plan Medical Decision Making: Patient presents emergency department with continued back pain. She has been seen in the emergency department now 5 times in the last 6 days and has had imaging done several times. She states today her leg gave out on her. She is very anxious and laying very awkwardly in the gurney. She was seen last night and was given a dose of her pain meds as well as her IV Benadryl as she was requesting. I informed her that all of her pain medications need to come from her primary care doctor. She states that when she got home last night she shook out her bed sheets and her phone fell to the floor. Shestates that because of that she did not see her doctor's text until 730 last night when the office was closed. She understands that prescription pain medications need to come from her primary care doctor. I do not see the new on examination here today. She is ambulatory to the apartment including to the bathroom twice without difficulty. She has patellar reflexes and normal distal sensation. As such she does not show any signs of cauda equina or central cord. I do not see any other red flags for any neurosurgical emergency. I am concerned that her behaviors are intended to obtain opioid pain medications. She was initially given a 2 mg dose of oral Dilaudid which is half of her home dose. She was here for quite some time. I agreed to give her the second half of the medication for total of 4 mg. This was all oral. She understands that she needs a follow-up with her primary care doctor andno further opioid pain medications will be administered for this in the emergency department. Diagnosis: ICD-10-CM 1. Chronic pain disorder G89.4 2. Chronic right-sided low back pain, unspecified whether sciatica present M54.50 G89.29 3. Fall, initial encounter W19.XXXA Scribe Disclosure: I, Rico Matute, am serving as a scribe at 7:39 PM on 12/18/2023 to document services personally performed by Irvin Delacruz MD based on my observations and the provider's statements to me. 12/18/2023 Irvin Delacruz MD Walters, Brent Aaron, MD 12/18/239 HOUSE WORKER documented in this encounter Plan of Treatment Upcoming Encounters Date Type Department Care Team (Late st Contact Info) Description 05/09/2024 10:00 AM CDT Office Visit [facility] [address] [place] [address] [place] [address] [place] [address] documented as of this encounter Visit Diagnoses Diagnosis Chronic pain disorder Chronic pain syndrome Chronic right-sided low back pain, unspecified whether sciatica present Fall, initial encounter documented in this encounter Administered Medications Inactive Administered Medications - up to 3 most recent administrations Medication Order MAR Action Action Date Dose Rate Site HYDROmorphone (DILAUDID) tablet 2 mg 2 mg, Oral, ONCE, On 12/18/23 at 1955, For 1 dose $Given 12/18/2023 8:26 PM DYE HOUSE WORKER 2 mg HYDROmorphone (DILAUDID) tablet 2 mg 2 mg, Oral, ONCE, On 12/18/23 at 2215, For 1 dose $Given 12/18/2023 10:19 PM DYE HOUSE WORKER 2 mg documented in this encounter Active and Recently Administered Medications Times are shown in DYE HOUSE WORKER. Scheduled Medication Order 12/16/2023 12/17/2023 12/18/2023 HYDROmorphone (DILAUDID) tablet 2 mg (COMPLETED) 2 mg, Oral, ONCE, On 12/18/23 at 1955, For 1 dose 2025 ($Given - Provi rosita: Laura Lee RN) HYDROmorphone (DILAUDID) tablet 2 mg (COMPLETED) 2 mg, Oral, ONCE, On 12/18/23 at 2215, For 1 dose 2219 ($Given - Provi rosita: Laura Lee RN) 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 Assessment Noted Time PHQ-9 Depression Total Score: 3 05/27/20 23 5:00 PM CDT documented as of this encounter Care Teams Biotechnician Relationship Specialty Start [place] [address] [address] [address] PCP - General Family Medicine 04/22/23 [place] [address] [address] [address] Assigned Pain Medication Provider 12/07/22 [place] [address] [address] [address] Assigned PCP 01/23/23 [place] [address] [place] [address] Assigned Musculoskeletal Provider 01/23/23 Gregorio Dalton PA-C [address] [address] Assigned Surgical Provider 05/22/23 Kingsley Garcia MD [address] [place] [address] Assigned Heart and Vascular Provider 08/07/23 [place] [address] [address] [address] Family Medicine 09/10/23 Master Shea PA-C [address] [address] Physician Risk Management Analyst Gastroenterology 09/10/23 Allyssa Justice MD [facility] [address] [facility] [address] [place] [address] Hematology & Oncology 12/10/23 documented as of this encounter
--- OUTSIDE RECORDS SUMMARY | 2024-03-25 18:21 | XMS_ITS | Encounter Summary ---
Author Name Unknown Organization [place] Address [facility] [place] [address] Care Team Providers Care Tech Ed/Woodshop Teacher Name Role Phone Segundo Mcclelland MD Unavailable [phone] Segundo Mcclelland MD Unavailable [phone] Qamar Jackson MD Unavailable Segundo Mcclelland MD Primary Care Provider + Gregorio Dalton PA-C Unavailable [phone] Kingsley Garcia MD Unavailable + [phone] Segundo Mcclelland MD Unavailable [phone] Master Shea PA-C Unavailable Allyssa Justice MD Unavailable [phone] Genaro Christian MD Unavailable [phone] Master Shea-C Unavailable Sienna Guillermo DO Unavailable [phone] Allyssa Justice MD Unavailable [phone] Reason for Visit * Reason Onset Date Comments MyChart Communication 12/19/2023 Cancelled appt Encounter Details Date Type Department Care Team (Late st Contact Info) Description 12/19/2023 [facility] [address] [address] [place] [address] [place] [address] MyChart Communication (Cancelled appt) Social History Tobacco Use Types Packs/Day Years [...] Miscellaneous Notes * Telephone Encounter - Dara Ponce RN - 12/20/2023 8:44 AM FINGERPRINT TECHNICIAN Routing to MA/TC Unable to find why patient was cancelled. Please assist Dara Watson RN on 12/20/2023 at 8:45 AM ERPRINT TECHNICIAN documented in this encounter Plan of Treatment Upcoming Encounters Date Type Department Care Team (Late st Contact Info) Description 05/09/2024 10:00 AM CDT Office Visit [facility] [place] [address] [phone] [place] [address] [address] documented as of this encounter Visit Diagnoses Not on file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 Rule Out COVID-19 01/18/2024 01/18/2024 01/18/2024 8:53 PM FINGERPRINT TECHNICIAN Rule Out COVID-19 01/28/2024 01/28/2024 01/28/2024 10:22 PM FINGERPRINT TECHNICIAN Rule Out COVID-19 02/17/2024 02/17/2024 02/17/2024 5:07 PM CDT Assessment Noted Time PHQ-9 Depression Total Score: 3 05/27/20 5:00 PM CDT documented as of this encounter Care Teams Tech Ed/Woodshop Teacher Relationship Specialty Start [place] [address] [address] PCP - General Family Medicine 04/22/23 [place] [address] [address] [address] Assigned Pain Medication Provider 12/07/22 [place] [address] [address] [address] Assigned PCP 01/23/23 [place] [address] [address] [address] Assigned Musculoskeletal Provider 01/23/23 Gregorio Dalton PA-C [address] [place] [address] Assigned Surgical Provider 05/22/23 Kingsley Garcia MD [address] [address] Assigned Heart and Vascular Provider 08/07/23 [place] [address] [address] [address] Family Medicine 09/10/23 Master Shea PA-C [address] [place] [address] Physician Systems Software Specialist Gastroenterology 09/10/23 Allyssa Justice MD [facility] [address] [address] Hematology & Oncology 12/10/23 Genaro Christian MD [address] [place], [place] [address] Cardiovascular Disease 12/22/23 Master Shea PA-C [address] [place] [address] Assigned Gastroenterology Provider 12/23/23 Sienna Guillermo DO [address] [place] [address] Physician Cardiovascular Disease 01/18/24 Allyssa Justice MD [facility] [address] [place] [address] Assigned Cancer Care Provider 03/21/24 documented as of this encounter
--- OUTSIDE RECORDS SUMMARY | 2024-03-25 18:21 | XMS_ITS | Encounter Summary ---
Author Name Unknown Organization [facility] Address [address] [place] [address] Care Team Providers Care Machinist Instructor Name Role Phone Segundo Mcclelland MD Unavailable [phone] Segundo Mcclelland MD Unavailable [phone] Qamar Jackson MD Unavailable Segundo Mcclelland MD Primary Care Provider + Gregorio Dalton PA-C Unavailable [phone] Kingsley Garcia MD Unavailable [phone] Segundo Mcclelland MD Unavailable [phone] Master Shea PA-C Unavailable Allyssa Justice MD Unavailable [phone] Reason for Visit * Reason Comments Abdominal Pain Encounter Details Date Type Department Care Team (Late st Contact Info) Description 12/17/2023 8:58 PM MECHANIC SENIOR - 12/18/2023 1:57 AM [facility] Emergency [facility] Emergency Dept [address] [place] [address] Nimo Carrasco MD [facility] [place] [address] Generalized abdominal pain; Elevated liver function tests; Anemia, unspecified type; Tachycardia, unspecified Discharge Disposition: Home or Self Care Social [...] Sign Reading Time Taken Comments Blood Pressure 114/88 12/18/2023 12:32 AM MECHANIC SENIOR Pulse 110 12/18/2023 12:28 AM MECHANIC SENIOR Temperature 37.2 ??C (98.9 ??F) 12/17/2023 8:56 PM CS T Respiratory Rate 16 12/17/2023 8:56 PM MECHANIC SENIOR Oxygen Saturation 100% 12/18/2023 12:45 AM MECHANIC SENIOR Inhaled Oxygen Concentration - - Weight - - Height - - Body Mass Index - - documented in this encounter Discharge Instructions * Attachments The following attachments cannot be sent through Care Everywhere. * Abdominal Pain (Prydeinig) * Anemia (Prydeinig) * Cardiac Arrhythmia (Prydeinig) documented in this encounter Medications at Time [...] anxiety naloxone (NARCAN) 4 MG/0.1ML nasal spray [place] 4 mg into one nostril alternating nostrils [...] as of this encounter ED Notes * Constantin Ramos RN - 12/17/2023 8:55 PM CST Pt reports she had colonoscopy recently and now feeling weak where she LOC in the shower with nausea/ vomiting ANIC SENIOR * Nimo Carrasco MD - 12/17/2023 8:53 PM CST History Chief Complaint: Abdominal Pain HPI Sandi Lopez is a 38 year old female anticoagulated on Eliquis with a complex past medical history including syncope, history of gastroparesis, PE, gastric ulcer, Kathleen-Mustafa tear, history of POTS syndrome, history of ESBL, esophageal ulcer, depression anxiety, borderline personality disorder chronic opioid and benzo use, chronic anemia. The patient was diagnosed with a recurrent PE recently at [facility]. She was restarted on Eliquis. She had an echocardiogram which showed an EF of 55 to 60% borderline right ventricular enlargement. Recently she was found to be significantly anemic so had upper endoscopy by Dr. Hernandez earlier this month and a colonoscopy a couple of days ago. She was at the emergency room 2 days ago after having her colonoscopy with abdominal pain and bleeding. She was seen in the emergency department on December 04 after another syncopal episode at home she had another syncopal episode on December 06 they felt this was likely vasovagal. Her gastroenterology isDr. Dia she had an EGD on December 07 which was negative for any acute bleed and a colonoscopy herhemoglobin was 10.[address] of her abdomen with portal was performed there is no obvious evidence of pe rforation or free air there was some distention of the fluid in small bowel She presents with abdominal pain following a colonoscopy. Patient reports severe anemia prompting aan upper endoscopy and she went to [place] emergency room yesterday for the symptoms had CT and blood work that did not show any acute cause for her pain. Colonoscopy to look for excessive bleeding from which the results looked good. She got out of the emergency room at around 10pm on 12/16 but has been experiencing continued vomiting and is unable to keep anything down. Patient reports having passed out in the shower due to pain and nausea and is also experiencing delayed processing of movements. She has been taking benadryl for her nausea but most recent attempt to take it resulted in vomiting and also takes ativan three times a day. Patient reports history of gastroparesis causing her to stop taking ozempic last April. The patient was at [place] last night for abdominal painit looks like they thought some of her symptoms were due to withdrawal from opiates. The appeared to have prescribed her Dilaudid. She was unable to fill this because her prescriptions need to be written by her primary care doctor only. Independent Historian: None Review of External Notes: A note from Dr. Prajapati seen late last night just discharged early this morning for abdominal pain, narcotic withdrawal, opiate dependence. She was seen yesterday for rectal bleeding and severe abdominal pain following colonoscopy yesterday. Review of a note by Dr. Flako Colmenares December 16, 2023. Medications: Eliquis Benadryl Vibramycin Epinephrine Gabapentin Klonopin Lisinopril Remeron Carafate Dilaudid Ativan Narcan Ambien Protonix Past Medical History: Dysthymic disorder Dysplasia of cervix Allergic rhinitis Dysmenorrhea Anorexia Ureteral stone GI bleed Kathleen-Mustafa tear Asthma Morbid obesity Anxiety Candidiasis of mouth Episodic opioid dependence CANELO Problem with vascular access Postural dizziness Postural orthostatic tachycardia syndrome Mixed personality disorder Bipolar I disorder Borderline personality disorder Chronic narcotic use Drug-seeking behavior Munchausen syndrome Gastric ulcer with hemorrhage Gastroesophageal reflux disease Insomnia Intertrigo Left lumbar radiculopathy Major depressive disorder PID Positive D dimer Psychogenic nonepileptic seizure Pulmonary nodules Suspected COVID-19 virus infection Transaminitis Bacteremia Posttraumatic stress disorder Port-A-Cath in place UTI Fungemia Ulcer of right foot Stomatitis delivery Gastroenteritis Orthostatic syncope Anemia Atrial flutter Fertility problem Gastroparesis Seizure Hypertension Mesenteric lymphadenitis Psychogenic nonepileptic seizure PTSD Pulmonary embolism Past Surgical History: Adenoidectomy LEEP x2 Ankle surgery Appendectomy Arthroscopy knee with lateral meniscectomy Back surgery Cryocautery of cervix Cerclage cervical x2 Cholecystectomy Colonoscopy Colposcopy Gall bladder laparoscopy Laparoscopy x2 Endoscopic retrograde cholangiopancreatography Esophagogastroduodenoscopy x6 Hysterectomy Insert midline Chest port placement PICC placement Port removal left Irrigation and debridement, right heel Laryngoscopy Oophorectomy Tonsillectomy and adenoidectomy Transesophageal echocardiogram intraoperative Tubal ligation Physical Exam No data found. Patient Vitals for the past 24 hrs: BP Temp Temp src Pulse Resp SpO2 12/17/23 2056 (!) 143/91 98.9 ??F (37.2 ??C) Temporal (!) 130 16 99 % Physical Exam Physical Exam Constitutional: Patient is oriented to person, place, and time. They appear well-developed and well-nourished. Mild distress secondary to vomiting HENT: Mouth/Throat: Oropharynx is clear and moist. Eyes: Conjunctivae normal and EOM are normal. Pupils are equal, round, and reactive to light. Neck: Normal range of motion. Cardiovascular: Normal rate, regular rhythm and normal heart sounds. Exam reveals no gallop and no friction rub. No murmur heard. Pulmonary/Chest: Effort normal and breath sounds normal. Patient has no wheezes. Patient has no rales. Abdominal: Soft. Bowel sounds are normal. Patient exhibits no mass. There is generalized tenderness. There is no rebound and no guarding. Musculoskeletal: Normal range of motion. Patient exhibits no edema. Neurological: Patient is alert and oriented to person, place, and time. Patient has normal strength. No cranial nerve deficit or sensory deficit. GCS 15 Skin: Skin is warm and dry. No rash noted. No erythema. Psychiatric: Patient has a normal mood Emergency Department Course Laboratory: Labs Ordered and Resulted from Time of ED Arrival to Time of ED Departure COMPREHENSIVE METABOLIC PANEL - Abnormal Result Value Sodium 139 Potassium 3.9 Carbon Dioxide (CO2) 22 Anion Gap 13 Urea Nitrogen 11.5 Creatinine 0.66 GFR Estimate >90 Calcium 9.4 Chloride 104 Glucose 96 Alkaline Phosphatase 269 (*) AST 63 (*) ALT 125 (*) Protein Total 8.2 Albumin 4.4 Bilirubin Total <0.2 CBC WITH PLATELETS AND DIFFERENTIAL - Abnormal WBC Count 10.3 RBC Count 4.15 Hemoglobin 10.3 (*) Hematocrit 33.7 (*) MCV 81 MCH 24.8 (*) MCHC 30.6 (*) RDW 23.4 (*) Platelet Count 514 (*) % Neutrophils 62 % Lymphocytes 31 % Monocytes 5 % Eosinophils 2 % Basophils 0 % Immature Granulocytes 0 NRBCs per 100 WBC 0 Absolute Neutrophils 6.2 Absolute Lymphocytes 3.2 Absolute Monocytes 0.5 Absolute Eosinophils 0.2 Absolute Basophils 0.0 Absolute Immature Granulocytes 0.0 Absolute NRBCs 0.0 LIPASE - Normal Lipase 45 Emergency Department Course & Assessments: Interventions: Medications sodium chloride 0.9% BOLUS 1,000 mL (0 mLs Intravenous Stopped 12/18/23 0104) diphenhydrAMINE (BENADRYL) injection 25 mg (25 mg Intravenous $Given 12/17/23 2239) HYDROmorphone (DILAUDID) tablet 2 mg (2 mg Oral $Given 12/17/23 2330) diphenhydrAMINE (BENADRYL) injection 25 mg (25 mg Intravenous $Given 12/18/23 0114) Assessments: 2110 I obtained the history and examined the patient as detailed above. Independent Interpretation (X-rays, CTs, rhythm strip): None Consultations/Discussion of Management or Tests: None Social Determinants of Health affecting care: None Disposition: The patient was discharged to home. Impression & Plan Medical Decision Making: Sandi Lopez-year-old female presenting to the emergency room with persistent nausea. She does have a history of gastroparesis. She has many visits to the emergency room has a care plan which I believe is for her pain medication. I did review her notes from the last week where she has had 2 CTs and blood work. I did not feel repeat imaging was indicated. I did do blood work on her which shows chronic elevation of her liver function alkaline phosphatase. She also has chronic but significantly improved anemia from her baseline. She received IV fluids. She has multiple allergies and states the only medication that helps with her nausea is Benadryl. I did give her IV Benadryl but and a 200 cc bolus. She requested this twice. I do acknowledge that she does have drug- seeking behavior on her chart and is restricted to 1 provider to provide pain medication. She states that she does not have any of her medications because she threw it away and she is unable to get a new prescription because she did not call her primary care doctor back in time. I did agree to give her 1 oral Dilaudid.She was able to keep that down. After IV fluids and keeping her medications down I feel that she issafe for discharge. Of note her heart rate did come down to the 1 teens. Upon review of her multiple visits to the emergency department for over the past year her baseline heart rate is 1 10-1 20s. So this is also normal for her as well. At this time I will refer her back to her primary care doctor. The patient states she has an appointment with him on Wednesday to refill her pain medication. She will follow-up with her baggage porter head as well. Diagnosis: ICD-10-CM 1. Generalized abdominal pain R10.84 2. Elevated liver function tests R79.89 3. Anemia, unspecified type D64.9 4. Tachycardia, unspecified R00.0 chronic Discharge Medications: Discharge Medication List as of 12/18/2023 1:34 AM Scribe Disclosure: I, Eitan Ortiz, am serving as a scribe drosophere operator with darin Cole at 12:50 AM on 12/18/2023 to document services personally performed by Nimo Carrasco MD based on my observationsand the provider's statements to me. 12/17/2023 Nimo Carrasco MD Bochert, Michelle Ann, MD 12/19/23 0105 ANIC SENIOR documented in this encounter Plan of Treatment Upcoming Encounters Date Type Department Care Team (Late st Contact Info) Description 05/09/2024 10:00 AM CDT Office Visit [facility] [address] [place] [address] [place] [address] [facility] [place] [address] documented as of this encounter Procedures Procedure Name Priority Date/Time Associated Diagnosis Comments EXTRA TUBE STAT 12/17/2023 10:30 PM MECHANIC SENIOR EXTRA GREEN TOP (LITHIUM HEPARIN) TUBE STAT 12/17/2023 10:30 PM MECHANIC SENIOR EXTRA RED TOP TUBE STAT 12/17/2023 10 :30 PM MECHANIC SENIOR EXTRA BLUE TOP TUBE STAT 12/17/2023 1 0:30 PM MECHANIC SENIOR CBC WITH PLATELETS AND DIFFERENTIAL STAT 12/17/2023 10:29 PM MECHANIC SENIOR CBC WITH PLATELETS & DIFFERENTIAL STAT 12/17/2023 10:29 PM MECHANIC SENIOR LIPASE STAT 12/17/2023 10:29 PM MECHANIC SENIOR COMPREHENSIVE METABOLIC PANEL STAT 12/17/2023 10:29 PM MECHANIC SENIOR documented in this encounter Results * Extra Green Top ([place] Heparin) Tube (12/17/2023 10:30 PM MECHANIC SENIOR) Hold Specimen [facility] 12/17/2023 11:47 PM MECHANIC SENIOR LABORATORY Blood STRUCTURE OF RIGHT UPPER LIMB / Unknown Venipuncture / Unknown 12/17/2023 10:30 PM MECHANIC SENIOR 12/17/2023 10:35 PM MECHANIC SENIOR Nimo Carrasco MD LAB - BLOOD CIELO LINO [facility] Organization Address City/State/ZIP Co de Phone Number LABORATORY [facility] Acute Care Lab [address], [address] [place] [address], [facility] [phone] * Extra Red Top Tube (12/17/2023 10:30 PM MECHANIC SENIOR) Hold Specimen [facility] 12/17/2023 11:47 PM MECHANIC SENIOR LABORATORY Blood STRUCTURE OF RIGHT UPPER LIMB / Unknown Venipuncture / Unknown 12/17/2023 10:30 PM MECHANIC SENIOR 12/17/2023 10:35 PM MECHANIC SENIOR Nimo Carrasco MD LAB - BLOOD ORDOctavio LINO LABORATORY [facility] Lab [address], [address] [place] [address], [facility] [phone] * Extra Blue Top Tube (12/17/2023 10:30 PM MECHANIC SENIOR) Hold Specimen [facility] 12/17/2023 11:47 PM MECHANIC SENIOR LABORATORY Blood STRUCTURE OF RIGHT UPPER LIMB / Unknown Venipuncture / Unknown 12/17/2023 10:30 PM MECHANIC SENIOR 12/17/2023 10:35 PM MECHANIC SENIOR Nimo Carrasco MD LAB - BLOOD CIELO LINO Performing Organization Address City/[facility]/ZIP Co de Phone Number LABORATORY [facility] Lab [address], [address], [place] [address], [facility] [phone] * (ABNORMAL) CBC with platelets and differential (12/17/2023 10:29 PM MECHANIC SENIOR) [facility] WBC Count 10.3 4.0 - 11.0 10e3/uL 12/17/2023 10:38 PM [facility] RBC Count 4.15 3.80 - 5.20 10e6/uL 12/17/2023 10:38 PM [facility] Hemoglobin 10.3(L) 11.7 - 15.7 g/dL 12/17/2023 10:38 PM [facility] Hematocrit 33.7(L) 35.0 - 47.0 % 12/17/2023 10:38 PM [facility] MCV 81 78 - 100 fL 12/17/2023 10:38 PM [facility] MCH 24.8(L) 26.5 - 33.0 pg 12/17/2023 10:38 PM [facility] MCHC 30.6(L) 31.5 - 36.5 g/dL 12/17/2023 10:38 PM [facility] RDW 23.4(H) 10.0 - 15.0 % 12/17/2023 10:38 PM MECHANIC SENIOR LABORATORY Platelet Count 514(H) 150 - 450 10e3/uL 12/17/2023 10:38 PM MECHANIC SENIOR LABORATORY % Neutrophils 62 % 12/17/2023 10:38 PM MECHANIC SENIOR LABORATORY % Lymphocytes 31 % 12/17/2023 10:38 PM MECHANIC SENIOR LABORATORY % Monocytes 5 % 12/17/2023 10:38 PM MECHANIC SENIOR LABORATORY % Eosinophils 2 % 12/17/2023 10:38 PM MECHANIC SENIOR LABORATORY % Basophils 0 % 12/17/2023 10:38 PM MECHANIC SENIOR LABORATORY % Immature Granulocytes 0 % 12/17/2023 10:38 PM MECHANIC SENIOR LABORATORY NRBCs per 100 WBC 0 <1 /100 024 10:38 PM MECHANIC SENIOR LABORATORY Absolute Neutrophils 6.2 1.6 - 8.3 10e3/uL 12/17/2023 10:38 PM MECHANIC SENIOR LABORATORY Absolute Lymphocytes 3.2 0.8 - 5.3 10e3/uL 12/17/2023 10:38 PM MECHANIC SENIOR LABORATORY Absolute Monocytes 0.5 0.0 - 1.3 10e3/uL 12/17/2023 10:38 PM MECHANIC SENIOR LABORATORY Absolute Eosinophils 0.2 0.0 - 0.7 10e3/uL 12/17/2023 10:38 PM MECHANIC SENIOR LABORATORY Absolute Basophils 0.0 0.0 - 0.2 10e3/uL 12/17/2023 10:38 PM MECHANIC SENIOR LABORATORY Absolute Immature Granulocytes 0.0 <=0.4 10e3/uL 12/17/2023 10:38 PM MECHANIC SENIOR LABORATORY Absolute NRBCs 0.0 10e3/uL 12/17/2023 10:38 PM MECHANIC SENIOR LABORATORY Blood BLOOD SPECIMEN / Unknown Venipuncture / Unknown 12/17/2023 10:29 PM MECHANIC SENIOR 12/17/2023 10:35 PM MECHANIC SENIOR Nimo Carrasco MD LAB - BLOOD ORDE ZOIE [facility] Organization Address City/State/ZIP Co de Phone Number LABORATORY [facility] Acute Care Lab [address], [address] [place] [address], [facility] [phone] * Lipase (12/17/2023 10:29 PM MECHANIC SENIOR) Pathologist [facility] Lipase 45 13 - 60 U/L 12/17/2023 11:07 PM [facility] Blood BLOOD SPECIMEN / Unknown Venipuncture / Unknown 12/17/2023 10:29 PM MECHANIC SENIOR 12/17/2023 10:35 PM MECHANIC SENIOR Nimo Carrasco MD LAB - BLOOD CIELO LINO [facility] Organization Address City/State/ZIP Co de Phone Number LABORATORY [facility] Acute Care Lab [address], [address] [place] [address], [facility] [phone] * (ABNORMAL) Comprehensive metabolic panel (12/17/2023 10:29 PM MECHANIC SENIOR) Pathologist [facility] Emergency Department Sodium 139 135 - 145 mmol/L 12/17/2023 11:09 PM [facility] Comment:Reference intervals for this test were updated on 08/24/2023 to more accurately reflect our healthy population. There may be differences in the flagging of prior results with similar values performed with this method. Interpretation of those prior results can be made in the context of the updated reference intervals. Potassium 3.9 3.4 - 5.3 mmol/L 12/17/2023 11:09 PM [facility] Carbon Dioxide (CO2) 22 22 - 29 mmol/L 12/17/2023 11:09 PM [facility] Anion Gap 13 7 - 15 mmol/L 12/17/2023 11:09 PM [facility] Urea Nitrogen 11.5 6.0 - 20.0 mg/dL 12/17/2023 11:09 PM [facility] Creatinine 0.66 0.51 - 0.95 mg/dL 12/17/2023 11:09 PM [facility] GFR Estimate >90 >60 mL/min/1. 73m2 12/17/2023 11:09 PM [facility] Calcium 9.4 8.6 - 10.0 mg/dL 12/17/2023 11:09 PM [facility] Chloride 104 98 - 107 mmol/L 12/17/2023 11:09 PM [facility] Glucose 96 70 - 99 mg/dL 12/17/2023 11:09 PM [facility] Alkaline Phosphatase 269(H) 40 - 150 U/L 12/17/2023 11:09 PM [facility] Comment:Reference intervals for this test were updated on 10/12/2023 to more accurately reflect our healthy population. There may be differences in the flagging of prior results with similar values performed with this method. Interpretation of those prior results can be made in the context of the updated reference intervals. AST 63(H) 0 - 45 U/L 12/17/2023 11:09 PM [facility] Comment:Reference intervals for this test were updated on 05/10/2023 to more accurately reflect our healthy population. There may be differences in the flagging of prior results with similar values performed with this method. Interpretation of those prior results can be made in the context of the updated reference intervals. ALT 125(H) 0 - 50 U/L 12/17/2023 11:09 PM [facility] Comment:Reference intervals for this test were updated on 05/10/2023 to more accurately reflect our healthy population. There may be differences in the flagging of prior results with similar values performed with this method. Interpretation of those prior results can be made in the context of the updated reference intervals. Protein Total 8.2 6.4 - 8.3 g/dL 12/17/2023 11:09 PM [facility] Albumin 4.4 3.5 - 5.2 g/dL 12/17/2023 11:09 PM [facility] Bilirubin Total <0.2 <=1.2 mg/dL 12/17/2023 11:09 PM [facility] Blood BLOOD SPECIMEN / Unknown Venipuncture / Unknown 12/17/2023 10:29 PM MECHANIC SENIOR 12/17/2023 10:35 PM [facility] Nimo Carrasco MD LAB - BLOOD CIELO LINO [facility] Organization Address City/State/ZIP Co de Phone Number LABORATORY [facility] Acute Care Lab [address], [address] [place] [address], [facility] [phone] documented in this encounter Visit Diagnoses Diagnosis Generalized abdominal pain Abdominal pain, generalized Elevated liver function tests Other abnormal blood chemistry Anemia, unspecified type Tachycardia, unspecified documented in this encounter Administered Medications Inactive Administered Medications - up to 3 most recent administrations Medication Order MAR Action Action Date Dose Rate Site diphenhydrAMINE (BENADRYL) injection 25 mg 25 mg, Intravenous, ONCE, On Wed12/17/23 at 2135, For 1 dose, Protect from light. $Given 12/17/2023 10:39 PM MECHANIC SENIOR 25 mg diphenhydrAMINE (BENADRYL) injection 25 mg 25 mg, Intravenous, ONCE, On 12/18/23 at 0110, For 1 dose, Protect from light. $Given 12/18/2023 1:14 AM MECHANIC SENIOR 25 mg HYDROmorphone (DILAUDID) tablet 2 mg 2 mg, Oral, ONCE, On Wed12/17/23 at 2330, For 1 dose $Given 12/17/2023 11:30 PM MECHANIC SENIOR 2 mg sodium chloride 0.9% BOLUS 1,000 mL Intravenous, 1,000 mL, ONCE, On Wed12/17/23 at 2135, For 1 dose $New Bag 12/17/2023 10:31 PM MECHANIC SENIOR 1,000 mLs documented in this encounter Active and Recently Administered Medications Times are shown in MECHANIC SENIOR. Scheduled Medication Order 12/16/2023 12/17/2023 12/18/2023 diphenhydrAMINE (BENADRYL) injection 25 mg (COMPLETED) 25 mg, Intravenous, ONCE, On Wed12/17/23 at 2135, For 1 dose, Protect from light. 2238 ($Given - Provider: Gifty White RN) diphenhydrAMINE (BENADRYL) injection 25 mg (COMPLETED) 25 mg, Intravenous, ONCE, On 12/18/23 at 0110, For 1 dose, Protect from light. 113 ($Given - Provi rosita: Stephane Way RN) HYDROmorphone (DILAUDID) tablet 2 mg (COMPLETED) 2 mg, Oral, ONCE, On Wed12/17/23 at 2330, For 1 dose 2330 ($Given - Provider: Gifty White RN) sodium chloride 0.9% BOLUS 1,000 mL Intravenous, 1,000 mL, ONCE, On Wed12/17/23 at 2135, For 1 dose 2326 (Canceled Entry - Provider: Gifty White RN - Comment: Duplicate order) sodium chloride 0.9% BOLUS 1,000 mL (COMPLETED) Intravenous, 1,000 mL, ONCE, On 12/17/23 at 2135, For 1 dose 2231 ($New Bag - Provider: Sunny Daniel RN) 0104 (Stopped - Provider: Stephane Way RN - Comment: 1000cc infused.) 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 Assessment Noted Time PHQ-9 Depression Total Score: 3 05/27/20 23 5:00 PM CDT documented as of this encounter Care Teams Machinist Instructor Relationship Specialty Start [place] [address] [address] [address] PCP - General Family Medicine 04/22/23 [place] [address] [address] [address] Assigned Pain Medication Provider 12/07/22 [place] [address] [address] [address] Assigned PCP 01/23/23 [place] [address] [address] [place] [address] Assigned Musculoskeletal Provider 01/23/23 Gregorio Dalton PA-C [address] [address] Assigned Surgical Provider 05/22/23 Kingsley Garcia MD [address] [place] [address] Assigned Heart and Vascular Provider 08/07/23 [place] [address] [address] [address] Family Medicine 09/10/23 Master Shea PA-C [address] [address] Physician [employer] C[employer] Machine Tender Gastroenterology 09/10/23 Allyssa Justice MD [facility] [address] [place] [address] [address] 018695 Hematology & Oncology 12/10/23 documented as of this encounter
[2024-03-25 18:22] LABS: Potassium* 3.7 mmol/L (3.6-5.1); Sodium* 138 mmol/L (135-149)
--- OUTSIDE RECORDS SUMMARY | 2024-03-25 18:22 | XMS_ITS | Encounter Summary ---
Author Name Unknown Organization [place] Address [facility] [place] [address] Care Team Providers Care Microsoft Infrastructure Consultant Name Role Phone Segundo Mcclelland MD Unavailable [phone] Segundo Mcclelland MD Unavailable +[phone] Qamar Jackson MD Unavailable Segundo Mcclelland MD Primary Care Provider + Gregorio Dalton PA-C Unavailable +[phone] Kingsley Garcia MD Unavailable + [phone] Segundo Mcclelland MD Unavailable +[phone] Master Shea PA-C Unavailable Allyssa Justice MD Unavailable [phone] Genaro Christian MD Unavailable + [phone] Master Shea-C Unavailable Sienna Guillermo DO Unavailable +[phone] Allyssa Justice MD Unavailable [phone] Reason for Visit * Reason Onset Date Comments Refill Request 08/23/2023 Encounter Details Date Type Department Care Team (Late st Contact Info) Description 08/23/[address] [address] [place] [address] [place] [address] Refill Request Social History Tobacco Use Types Packs/Day Years Used Date Smoking Tobacco: Never Smokeless Tobacco: Never Alcohol Use Standard Drinks/Week Comments Yes 0 (1 standard drink = 0.6 oz pur e alcohol) occasional PHQ-2 Answer Date Recorded PHQ-2 Score 1 05/28/2023 Adolescent Education Answer Date Record ed Getting [...] Orientation Straight 05/26/2021 10 :37 AM CDT COVID-19 Exposure Response Date Recorded In the last 10 days, have yo u been in contact with someone who was confirmed or suspected to have Coronavirus/COVID-19? No / Unsure 08/22/2023 1:20 PM CDT documented as of this encounter Miscellaneous Notes * Telephone Encounter - Sienna Wilder RN - 08/23/2023 1:06 PM CDT See telephone call from 08/23/23 - Dr. Vela from [facility] requested to talk to Dr. Mcclelland. Message was sent to Dr. Mcclelland as well as text message. 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 Rule Out COVID-19 11/10/2023 11/10/2023 11/10/2023 7:17 PM FIREFIGHTER TYPE ONE Rule Out COVID-19 01/18/2024 01/18/2024 01/18/2024 8:53 PM FIREFIGHTER TYPE ONE Rule Out COVID-19 01/28/2024 01/28/2024 01/28/2024 10:22 PM FIREFIGHTER TYPE ONE Rule Out COVID-19 02/17/2024 02/17/2024 02/17/2024 5:07 PM CDT Assessment Noted Time PHQ-9 Depression Total Score: 3 05/27/20 23 5:00 PM CDT documented as of this encounter Care Teams Microsoft Infrastructure Consultant Relationship Specialty Start [place] [address] [address] [address] PCP - General Family Medicine 04/22/23 [place] [address] [address] [address] Assigned Pain Medication Provider 12/07/22 [place] [address] [place] [address] Assigned PCP 01/23/23 [place] [address] [place] [address] Assigned Musculoskeletal Provider 01/23/23 Gregorio Dalton PA-C [address] [place] [address] Assigned Surgical Provider 05/22/23 Kingsley Garcia MD [address] [place] [address] Assigned Heart and Vascular Provider 08/07/23 [place] [address] [place] [address] Family Medicine 09/10/23 Master Shea PA-C [address] [place] [address] Physician Strategic Development Manager Gastroenterology 09/10/23 Allyssa Justice MD [facility] [address] [place] [address] Hematology & Oncology 12/10/23 Genaro Christian MD [address] [place] [address] Cardiovascular Disease 12/22/23 Master Shea PA-C [address] [place] [address] Assigned Gastroenterology Provider 12/23/23 Sienna Guillermo DO [address] [place] [address] Physician Cardiovascular Disease 01/18/24 Allyssa Justice MD [facility] [address] [place] [address] Assigned Cancer Care Provider 03/21/24 documented as of this encounter
--- OUTSIDE RECORDS SUMMARY | 2024-03-25 18:22 | XMS_ITS | Encounter Summary ---
Author Name Unknown Organization [place] Address [facility] [place] [address] Care Team Providers Care Shooting Gallery Operator Name Role Phone Segundo Mcclelland MD Unavailable [phone] Segundo Mcclelland MD Unavailable +[phone] Qamar Jackson MD Unavailable Segundo Mcclelland MD Primary Care Provider + Gregorio Dalton PA-C Unavailable +[phone] Kingsley Garcia MD Unavailable + [phone] Segundo Mcclelland MD Unavailable +[phone] Master Shea PA-C Unavailable Allyssa Justice MD Unavailable [phone] Genaro Christian MD Unavailable + [phone] Master Shea-C Unavailable Sienna Guillermo DO Unavailable +[phone] Allyssa Justice MD Unavailable [phone] Encounter Details Date Type Department Care Team (Late st Contact Info) Description 10/07/2023 MyC Medical Advice [facility] [address] [place] [address] [place] [address] [place] [address] Social History Tobacco Use Types Packs/Day Years [...] encounter Miscellaneous Notes * Telephone Encounter - Madalyn Queen RN - 10/07/2023 10:39 AM CST See update on mychart. 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 Rule Out COVID-19 11/10/2023 11/10/2023 11/10/2023 7:17 PM EXCELSIOR MACHINE FEEDER Rule Out COVID-19 01/18/2024 01/18/2024 01/18/2024 8:53 PM EXCELSIOR MACHINE FEEDER Rule Out COVID-19 01/28/2024 01/28/2024 01/28/2024 10:22 PM EXCELSIOR MACHINE FEEDER Rule Out COVID-19 02/17/2024 02/17/2024 02/17/2024 5:07 PM CDT Assessment Noted Time PHQ-9 Depression Total Score: 3 05/27/20 5:00 PM CDT documented as of this encounter Care Teams Shooting Gallery Operator Relationship Specialty Start [place] [address] [place] [address] PCP - General Family Medicine 04/22/23 [place] [address] [address] [address] Assigned Pain Medication Provider 12/07/22 [place] [address] [address] [address] Assigned PCP 01/23/23 [place] [address] [address] [place] [address] Assigned Musculoskeletal Provider 01/23/23 Gregorio Dalton PA-C [address] [place] [address] Assigned Surgical Provider 05/22/23 Kingsley Garcia MD [address] [place] [address] Assigned Heart and Vascular Provider 08/07/23 [place] [address] [place] [address] Family Medicine 09/10/23 Master Shea PA-C [address] [place] [place] [address] Physician Ear Flap Binder Gastroenterology 09/10/23 Allyssa Justice MD [facility] [address] [place] [address] Hematology & Oncology 12/10/23 Genaro Christian MD 6 [place], [place] [address] Cardiovascular Disease 12/22/23 Master Shea PA-C [address] [place] [place] [address] Assigned Gastroenterology Provider 12/23/23 Sienna Guillermo DO [address] [place] [address] Physician Cardiovascular Disease 01/18/24 Allyssa Justice MD [facility] [address] [place] [address] Assigned Cancer Care Provider 03/21/24 documented as of this encounter
--- OUTSIDE RECORDS SUMMARY | 2024-03-25 18:22 | XMS_ITS | Encounter Summary ---
Author Name Unknown Organization [place] Address [address] [place] [address] Care Team Providers Care Automatic Folder Seamer Name Role Phone Segundo Mcclelland MD Unavailable [phone] Segundo Mcclelland MD Unavailable [phone] Qamar Jackson MD Unavailable Segundo Mcclelland MD Primary Care Provider + Gregorio Dalton PA-C Unavailable [phone] Kingsley Garcia MD Unavailable + [phone] Segundo Mcclelland MD Unavailable [phone] Master Shea PA-C Unavailable Allyssa Justice MD Unavailable [phone] Genaro Christian MD Unavailable + [phone] Master Shea PA-C Unavailable Sienna Guillermo DO Unavailable +[phone] Allyssa Justice MD Unavailable [phone] Encounter Details Date Type Department Care Team (Late st Contact Info) Description 12/09/2023 MyC Medical Advice [facility] - Cancer Care Service Line [facility] [place] [address] Aide Santamaria, RN Social History Tobacco Use Types Packs/Day [...] 10:00 AM CDT Office Visit 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 Rule Out COVID-19 01/18/2024 01/18/2024 01/18/2024 8:53 PM SAMPLE CASE PORTER Rule Out COVID-19 01/28/2024 01/28/2024 01/28/2024 10:22 PM SAMPLE CASE PORTER Rule Out COVID-19 02/17/2024 02/17/2024 02/17/2024 5:07 PM CDT Assessment Noted Time PHQ-9 Depression Total Score: 3 05/27/20 5:00 PM CDT documented as of this encounter Care Teams Automatic Folder Seamer Relationship Specialty Start [place] [address] [address] [address] PCP - General Family Medicine 04/22/23 [place] [address] [address] [address] Assigned Pain Medication Provider 12/07/22 [place] [address] [address] [address] Assigned PCP 01/23/23 [place] [address] [place] [address] Assigned Musculoskeletal Provider 01/23/23 Gregorio Dalton PA-C [address] [address] Assigned Surgical Provider 05/22/23 Kingsley Garcia MD [address] [place] [address] Assigned Heart and Vascular Provider 08/07/23 [place] [address] [address] [address] Family Medicine 09/10/23 Master Shea PA-C [address] [place] [address] Physician Dowel Machine Operator Gastroenterology 09/10/23 Allyssa Justice MD [facility] [address] [address] [place] [address] Hematology & Oncology 12/10/23 Genaro Christian MD [address] [place] [address] Cardiovascular Disease 12/22/23 Master Shea PA-C [address] [place] [address] Assigned Gastroenterology Provider 12/23/23 Sienna Guillermo DO [address] [place] [address] Physician Cardiovascular Disease 01/18/24 Allyssa Justice MD [facility] [address] [place] [address] [place] [address] Assigned Cancer Care Provider 03/21/24 documented as of this encounter
--- OUTSIDE RECORDS SUMMARY | 2024-03-25 18:22 | XMS_ITS | Encounter Summary ---
Author Name Unknown Organization [place] Address Critical access hospital0 [facility] [place] [address] Care Team Providers Care Parking Patroller Name Role Phone Segundo Mcclelland MD Unavailable [phone] Segundo Mcclelland MD Unavailable [phone] Qamar Jackson MD Unavailable Segundo Mcclelland MD Primary Care Provider + Gregorio Dalton PA-C Unavailable [phone] Kingsley Garcia MD Unavailable + [phone] Segundo Mcclelland MD Unavailable [phone] Master Shea PA-C Unavailable Allyssa Justice MD Unavailable [phone] Genaro Christian MD Unavailable + [phone] Master Shea-C Unavailable Sienna Guillermo DO Unavailable +[phone] Allyssa Justice MD Unavailable [phone] Encounter Details Date Type Department Care Team (Late st Contact Info) Description 07/27/2023 MyC Medical Advice [facility] [address] [place] [address] [place] [address] [place] [address] Social History Tobacco Use Types Packs/Day Years Used Date Smoking Tobacco: Never Smokeless Tobacco: Never Alcohol Use Standard Drinks/Week Comments Yes 0 (1 standard drink = 0.6 oz pur e alcohol) occasional PHQ-2 Answer Date Recorded PHQ-2 Score 1 05/28/2023 Sex and Gender Information Value Date Recorded Sex Assigned at Female 05/26/2021 10:37 AM CDT Gender Identity Female 05/26/2021 10:37 AM CDT Sexual Orientation Straight 05/26/2021 10 :37 AM CDT COVID-19 Exposure Response Date Recorded In the last 10 days, have yo u been in contact with someone who was confirmed or suspected to have Coronavirus/COVID-19? 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 Rule Out COVID-19 11/10/2023 11/10/2023 11/10/2023 7:17 PM COMPUTER VIDEO GAME DESIGNER Rule Out COVID-19 01/18/2024 01/18/2024 01/18/2024 8:53 PM COMPUTER VIDEO GAME DESIGNER Rule Out COVID-19 01/28/2024 01/28/2024 01/28/2024 10:22 PM COMPUTER VIDEO GAME DESIGNER Rule Out COVID-19 02/17/2024 02/17/2024 02/17/2024 5:07 PM CDT Assessment Noted Time PHQ-9 Depression Total Score: 3 05/27/20 5:00 PM CDT documented as of this encounter Care Teams Parking Patroller Relationship Specialty Start [place] [address] [place] [address] PCP - General Family Medicine 04/22/23 [place] [address] [place] [address] Assigned Pain Medication Provider 12/07/22 [place] [address] [place] [address] Assigned PCP 01/23/23 [place] [address] [place] [address] Assigned Musculoskeletal Provider 01/23/23 Gregorio Dalton PA-C [address] [place] [address] Assigned Surgical Provider 05/22/23 Kingsley Garcia MD [address] [place] [address] Assigned Heart and Vascular Provider 08/07/23 [place] [address] [place] [address] Family Medicine 09/10/23 Master Shea PA-C [address] [place] [address] Physician [place] Senator Gastroenterology 09/10/23 Allyssa Justice MD [facility] [address] [place] [address] Hematology & Oncology 12/10/23 Genaro Christian MD 6 [place] [address] Cardiovascular Disease 12/22/23 Master Shea PA-C [address] [place] [address] Assigned Gastroenterology Provider 12/23/23 Sienna Guillermo DO [address] [place] [address] Physician Cardiovascular Disease 01/18/24 Allyssa Justice MD [facility] [address] [place] [address] Assigned Cancer Care Provider 03/21/24 documented as of this encounter
--- OUTSIDE RECORDS SUMMARY | 2024-03-25 18:22 | XMS_ITS | Encounter Summary ---
Author Name Unknown Organization [place] Address [address] [facility] [place] [address] Care Team Providers Care Research Director Name Role Phone Segundo Mcclelland MD Unavailable Segundo Mcclelland MD Unavailable [phone] Qamar Jackson MD Unavailable Segundo Mcclelland MD Primary Care Provider + Gregorio Dalton PA-C Unavailable Kingsley Garcia MD Unavailable [phone] Segundo Mcclelland MD Unavailable Master Shea PA-C Unavailable Allyssa Justice MD Unavailable [phone] Genaro Christian MD Unavailable Master Shea PA-C Unavailable Encounter Details Date Type Department Care Team (Late st Contact Info) Description 10/12/2023 Telephone [facility] [address] [place] [address] [place] [address] [place] [address] Social History Tobacco Use Types [...] encounter Miscellaneous Notes * Telephone Encounter - Angelica Holt - 10/12/2023 3:26 PM CST Patient Quality Outreach Patient is due for the following: Chronic Opioid Use - Treatment Agreement (CSA) Next Steps: Patient has upcoming appointment, these items will be addressed at that time. Appt on 10/15/23 Type of outreach: Chart review performed, no outreach needed. 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 Rule Out COVID-19 11/10/2023 11/10/2023 11/10/2023 7:17 PM BURNISHER Assessment Noted Time PHQ-9 Depression Total Score: 3 05/27/20 5:00 PM CDT documented as of this encounter Care Teams Research Director Relationship Specialty Start [place] [address] [place] [address] PCP - General Family Medicine 04/22/23 [place] [address] [place] [address] Assigned Pain Medication Provider 12/07/22 [place] [address] [place] [address] Assigned PCP 01/23/23 [place] [address] [place] [address] [place] [address] Assigned Musculoskeletal Provider 01/23/23 Gregorio Dalton PA-C [address] [address] Assigned Surgical Provider 05/22/23 Kingsley Garcia MD [address] [place] [address] Assigned Heart and Vascular Provider 08/07/23 [place] [address] [address] [place] [address] Family Medicine 09/10/23 Master Shea PA-C [address] [place] [address] Physician Well Testing Operator Gastroenterology 09/10/23 Allyssa Justice MD [facility] [address] [place] [address] Hematology & Oncology 12/10/23 Genaro Christian MD 6 [place] [address] Cardiovascular Disease 12/22/23 Master Shea PA-C [address] [place] [address] Assigned Gastroenterology Provider 12/23/23 documented as of this encounter
--- OUTSIDE RECORDS SUMMARY | 2024-03-25 18:22 | XMS_ITS | Encounter Summary ---
Author Name Unknown Organization [place] Address [address] [place] [address] Care Team Providers Care Cured Meat Packing Supervisor Name Role Phone Segundo Mcclelland MD Unavailable [phone] Segundo Mcclelland MD Unavailable [phone] Qamar Jackson MD Unavailable Segundo Mcclelland MD Primary Care Provider + Gregorio Dalton-Shirley Unavailable [phone] Kingsley Garcia MD Unavailable + [phone] Segundo Mcclelland MD Unavailable [phone] Master Shea-Shirley Unavailable Allyssa Justice MD Unavailable [phone] Genaro Christian MD Unavailable [phone] Master Shea-C Unavailable Sienna Guillermo DO Unavailable [phone] Allyssa Justice MD Unavailable [phone] Encounter Details Date Type Department Care Team (Late st Contact Info) Description 08/26/2023 MyC Medical [facility] [place] [address] [place] [phone] Kingsley Garcia MD [address] [place] [address] Social History Tobacco Use Types Packs/Day Years [...] PM CDT documented as of this encounter Plan of Treatment Upcoming Encounters Date Type Department Care Team (Late st Contact Info) Description 05/09/2024 10:00 AM CDT Office Visit [facility] [address] [place] [address] [place] [address] [place] [address] documented as of this encounter Visit Diagnoses Not on file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 Rule Out COVID-19 11/10/2023 11/10/2023 11/10/2023 7:17 PM PRODUCTION ASSEMBLY SUPERVISOR Rule Out COVID-19 01/18/2024 01/18/2024 01/18/2024 8:53 PM PRODUCTION ASSEMBLY SUPERVISOR Rule Out COVID-19 01/28/2024 01/28/2024 01/28/2024 10:22 PM PRODUCTION ASSEMBLY SUPERVISOR Rule Out COVID-19 02/17/2024 02/17/2024 02/17/2024 5:07 PM CDT Assessment Noted Time PHQ-9 Depression Total Score: 3 05/27/20 5:00 PM CDT documented as of this encounter Care Teams Cured Meat Packing Supervisor Relationship Specialty Start [place] [address] [address] [address] PCP - General Family Medicine 04/22/23 [place] [address] [address] [address] Assigned Pain Medication Provider 12/07/22 [place] [address] [address] [address] Assigned PCP 01/23/23 [place] [address] [address] [place] [address] Assigned Musculoskeletal Provider 01/23/23 Gregorio Dalton PA-C [address] [address] Assigned Surgical Provider 05/22/23 Kingsley Garcia MD [address] [place] [address] Assigned Heart and Vascular Provider 08/07/23 [place] [address] [place] [address] Family Medicine 09/10/23 Master Shea PA-C [address] [place] [address] Physician Grit Removal Operator Gastroenterology 09/10/23 Allyssa Justice MD [facility] [address] [place] [address] Hematology & Oncology 12/10/23 Genaro Christian MD [address] [place] [address] Cardiovascular Disease 12/22/23 Master Shea PA-C [address] [place] [address] Assigned Gastroenterology Provider 12/23/23 Sienna Guillermo DO [address] [place] [address] Physician Cardiovascular Disease 01/18/24 Allyssa Justice MD [facility] [address] [place] [place] [address] Assigned Cancer Care Provider 03/21/24 documented as of this encounter
--- OUTSIDE RECORDS SUMMARY | 2024-03-25 18:22 | XMS_ITS | Encounter Summary ---
Author Name Unknown Organization [place] Address [address] [place] [address] Care Team Providers Care Spray Drier Operator Helper Name Role Phone Segundo Mcclelland MD Unavailable [phone] Segundo Mcclelland MD Unavailable [phone] Qamar Jackson MD Unavailable Segundo Mcclelland MD Primary Care Provider + Gregorio Dalton PA-C Unavailable [phone] Kingsley Garcia MD Unavailable + [phone] Segundo Mcclelland MD Unavailable [phone] Master Shea PA-C Unavailable Allyssa Justice MD Unavailable [phone] Reason for Visit * Reason Onset Date Comments Medication Question 09/14/2023 Encounter Details Date Type Department Care Team (Late st Contact Info) Description 09/14/2023 Telephone [facility] [address] [place] [address] [place] [address] [place] [address] Medication Question Social History Tobacco Use Types Packs/Day Years [...] suspected to have Coronavirus/COVID-19? No / Unsure 09/04/2023 5:40 PM CDT documented as of this encounter Miscellaneous Notes * Telephone Encounter - Olga Garcia, RN - 09/14/2023 4:15 PM CDT Called infusion pharmacy and spoke with Perlita. Relayed provider's message regarding verbal order for 14 days extension of IV benadryl - 25mg IV q6h PRN for nausea Olga Garcia, RN * Telephone Encounter - Segundo Mcclelland MD - 09/14/2023 3:48 PM CDT OK, let's extend benadryl for another 14 days, same dose. Segundo Mcclelland MD * Telephone Encounter - Brittney Reyes RN - 09/14/2023 12:56 PM CDT Patient states has been helpful. C/o some nausea and vomiting if eating or drinking too much. Able to keep down fluids and food in smaller amounts. Denies signs of dehydration. Receives IV fluids. Urinating normally. Needs to take Benadryl every 6-8 hours. Unable to go longer than that or will start vomiting. Appointment with GI 09/24. Brittney Reyes RN * Telephone Encounter - Segundo Mcclelland MD - 09/14/2023 12:42 PM CDT Has this been helpful for her? She can use it q6h PRN, how often has she been using it? Segundo Mcclelland MD * Telephone Encounter - Brittney Reyes RN - 09/14/2023 11:39 AM CDT ePrlita from infusion pharmacy ([phone] option 2) called requesting plan for future visits/medications. Patient has enough medication until 09/16/23. Did you want to continue with current orders? Orders from 09/10/23: IV benadryl - 25mg IV q6h PRN for nausea for one week End date for orders? Plan details? Please advise. 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 Rule Out COVID-19 11/10/2023 11/10/2023 11/10/2023 7:17 PM SUGAR HOUSE SUPERVISOR Assessment Noted Time PHQ-9 Depression Total Score: 3 05/27/20 5:00 PM CDT documented as of this encounter Care Teams Spray Drier Operator Helper Relationship Specialty Start [place] [address] [place] [address] PCP - General Family Medicine 04/22/23 [place] [address] [place] [address] Assigned Pain Medication Provider 12/07/22 [place] [address] [place] [place] [address] Assigned PCP 01/23/23 [place] [address] [place] [address] Assigned Musculoskeletal Provider 01/23/23 Gregorio Dalton PA-C [address] 445915 Assigned Surgical Provider 05/22/23 Kingsley Garcia MD [address] [place] [address] Assigned Heart and Vascular Provider 08/07/23 [place] [address] [place] [address] Family Medicine 09/10/23 Master Shea PA-C [address] [place] [address] Light Servicer Supervisor Gastroenterology 09/10/23 Allyssa Justice MD [facility] [address] [place] [address] Hematology & Oncology 12/10/23 documented as of this encounter
--- OUTSIDE RECORDS SUMMARY | 2024-03-25 18:22 | XMS_ITS | Encounter Summary ---
Author Name Unknown Organization [place] Address [address] [place] [address] Care Team Providers Care Clearance Representative Name Role Phone Segundo Mcclelland MD Unavailable [phone] Segundo Mcclelland MD Unavailable [phone] Qamar Jackson MD Unavailable Segundo Mcclelland MD Primary Care Provider + Gregorio Dalton PA-C Unavailable [phone] Kingsley Garcia MD Unavailable + [phone] Segundo Mcclelland MD Unavailable +[phone] Master Shea PA-C Unavailable Allyssa Justice MD Unavailable [phone] Genaro Christian MD Unavailable + [phone] Master Shea-Shirley Unavailable Sienna Guillermo DO Unavailable [phone] Allyssa Justice MD Unavailable [phone] Reason for Visit * Reason Onset Date Comments Appointment 08/04/2023 Tilt table Encounter Details Date Type Department Care Team (Late st Contact Info) Description 08/04/2023 Telephone [facility] Heart [address] [place] [address] None Appointment (Tilt table ) Social History Tobacco Use Types Packs/Day Years [...] suspected to have Coronavirus/COVID-19? No / Unsure 08/05/2023 3:27 PM CDT documented as of this encounter Miscellaneous Notes * Telephone Encounter - Verito Jalloh - 08/04/2023 2:02 PM CDT [facility] Call Center Phone Message May a detailed message be left on voicemail: no Reason for Call: Appointment Intake Referring Provider Name: Kingsley Garcia MD in [facility] Diagnosis and/or Symptoms: Please do tilt table to rule in POTS. See Radha's note of 07/28/23 Pt stated they put port in and she is not sure if this is still what they want to do. Please reviewand call pt to schedule as needed. Action Taken: Other: cardio Travel Screening: Not Applicable documented in this encounter Plan of Treatment Upcoming Encounters Date Type Department Care Team (Late st Contact Info) Description 05/09/2024 10:00 AM CDT Office Visit [facility] [address] [place] [address] [place] [address] [facility] [place] [address] documented as of this encounter Visit Diagnoses Not on file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 Rule Out COVID-19 11/10/2023 11/10/2023 11/10/2023 7:17 PM INFECTION CONTROL SPECIALIST Rule Out COVID-19 01/18/2024 01/18/2024 01/18/2024 8:53 PM INFECTION CONTROL SPECIALIST Rule Out COVID-19 01/28/2024 01/28/2024 01/28/2024 10:22 PM INFECTION CONTROL SPECIALIST Rule Out COVID-19 02/17/2024 02/17/2024 02/17/2024 5:07 PM CDT Assessment Noted Time PHQ-9 Depression Total Score: 3 05/27/20 5:00 PM CDT documented as of this encounter Care Teams Clearance Representative Relationship Specialty Start [place] [address] [place] [address] PCP - General Family Medicine 04/22/23 [place] [address] [place] [address] Assigned Pain Medication Provider 12/07/22 [place] [address] [address] [address] Assigned PCP 01/23/23 [place] [address] [place] [address] Assigned Musculoskeletal Provider 01/23/23 Gregorio Dalton PA-C [address] 633845 Assigned Surgical Provider 05/22/23 Kingsley Garcia MD [address] [place] [address] Assigned Heart and Vascular Provider 08/07/23 [place] [address] [place] [address] Family Medicine 09/10/23 Master Shea PA-C [address] [place] [address] Physician Principal Programmer Gastroenterology 09/10/23 Allyssa Justice MD [facility] [address] [place] 315515 Hematology & Oncology 12/10/23 Genaro Christian MD [address] [place] [address] Cardiovascular Disease 12/22/23 Master Shea PA-C [address] [place] [address] Assigned Gastroenterology Provider 12/23/23 Sienna Guillermo DO [address] [place] [address] Physician Cardiovascular Disease 01/18/24 Allyssa Justice MD [facility] [address] [place] [address]65 Assigned Cancer Care Provider 03/21/24 documented as of this encounter
--- OUTSIDE RECORDS SUMMARY | 2024-03-25 18:22 | XMS_ITS | Encounter Summary ---
Author Name Unknown Organization [place] Address [facility] [place] [address] Care Team Providers Care Maintenance Instructor Name Role Phone Segundo Mcclelland MD Unavailable [phone] Segundo Mcclelland MD Unavailable [phone] Qamar Jackson MD Unavailable Segundo Mcclelland MD Primary Care Provider + Gregorio Dalton PA-C Unavailable [phone] Kingsley Garcia MD Unavailable + [phone] Segundo Mcclelland MD Unavailable [phone] Master Shea PA-C Unavailable Allyssa Justice MD Unavailable [phone] Genaro Christian MD Unavailable Master Shea-Shirley Unavailable Sienna Guillermo DO Unavailable Reason for Visit * Reason Onset Date Comments IV fluids 08/03/2023 Encounter Details Date Type Department Care Team (Late st Contact Info) Description 08/03/[address] [facility] [address] [place] [address] [place] [address] [place] [address] IV fluids Social History Tobacco Use Types Packs/Day Years [...] Telephone Encounter - Sienna Wilder RN - 08/03/2023 10:54 AM CDT SONDRA - Dr. Stas Casper calls back. They can't do ativan IV - pts can't self admin. Per there pharmacist - for gastroporesis guidelines - benadryl 12.5 mg po every 6-8 hours as neededfor nausea. She thought IV protonix would be reasonable if needed. The pt would be administering. She transferred me to the pharmacist - Perlita -[phone], option 2 - to give verbal orders fromDr. Mcclelland below. Verbal orders were given per below. Talked to Dr. Mcclelland about below to see how long to continue IV therapy. Dr. Mcclelland advised for IV therapy for 3 months and then we can reassess.Perlita was given a verbal order for this also. . * Telephone Encounter - Segundo Mcclelland MD - 08/03/2023 10:52 AM CDT I'm not sure how to set up those orders specifically. But we can order 1L NS IV Twice weekly (recommend M & ). Segundo Mcclelland MD * Telephone Encounter - Sienna Wilder RN - 08/03/2023 10:16 AM CDT Received a call from Pennie from [facility] [phone]. They need a referral to get some home IV fluids. Due to her insurance, Dr. Mcclelland needs to be the ordering provider. Pt had been at [facility]. She needs 1-2 times a week hydration. There was a note from the Environmental Field Services Technician that Dr. Mcclelland needs to be the prescriber. Orders need to be for a therapy plan, fluid type, amount and how often and length of therapy - (example: a month or a year). See telephone call of 07/30/23 also. Please fax orders to: [phone] or orders can just be seen in [facility]. Please see mychart of 08/02/23 also. Pt requesting other medications - to be given IV. Pennie is notsure they can give medications the pt is requesting. She is checking with her pharmacist. She said there pharmacists can help if Dr. Mcclelland has questions on dosing. They are hoping to get orders today because Pennie does not know if they sent home flushes for herport. Pt went to the ER for issues with her port on 08/01/23. She said even if they could get orders for fluids. She is not sure if they can give the other medications, but she is checking on that. documented in this encounter Plan of Treatment Upcoming Encounters Date Type Department Care Team (Late st Contact Info) Description 05/09/2024 10:00 AM CDT [facility] [address] [place] [address] [place] [address] [id number] documented as of this encounter Visit Diagnoses Not on file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 Rule Out COVID-19 11/10/2023 11/10/2023 11/10/2023 7:17 PM PROTOTYPER Rule Out COVID-19 01/18/2024 01/18/2024 01/18/2024 8:53 PM PROTOTYPER Rule Out COVID-19 01/28/2024 01/28/2024 01/28/2024 10:22 PM PROTOTYPER Assessment Noted Time PHQ-9 Depression Total Score: 3 05/27/20 5:00 PM CDT documented as of this encounter Care Teams Maintenance Instructor Relationship Specialty Start [place] [address] [address] [address] PCP - General Family Medicine 04/22/23 [place] [address] [address] [address] Assigned Pain Medication Provider 12/07/22 [place] [address] [place] [address] Assigned PCP 01/23/23 [place] [address] [place] [address] Assigned Musculoskeletal Provider 01/23/23 Gregorio Dalton PA-C [address] [place] [address] Assigned Surgical Provider 05/22/23 Kingsley Garcia MD [address] [place] [address] Assigned Heart and Vascular Provider 08/07/23 [place] [address] [place] [address] Family Medicine 09/10/23 Master Shea PA-C [address] [facility] [place] [address] Physician Decoration Checker Gastroenterology 09/10/23 Allyssa Justice MD [facility] [address] [place] [address] Hematology & Oncology 12/10/23 Genaro Christian MD [address] [place] [address] Cardiovascular Disease 12/22/23 Master Shea PA-C [address] [place] [address] Assigned Gastroenterology Provider 12/23/23 Sienna Guillermo DO [address] [place] [address] Physician Cardiovascular Disease 01/18/24 documented as of this encounter
--- OUTSIDE RECORDS SUMMARY | 2024-03-25 18:22 | XMS_ITS | Encounter Summary ---
Author Name Unknown Organization [place] Address [facility] [place] [address] Care Team Providers Care Right Of Way Worker Name Role Phone Segundo Mcclelland MD Unavailable [phone] Segundo Mcclelland MD Unavailable [phone] Qamar Jackson MD Unavailable Segundo Mcclelland MD Primary Care Provider + Gregorio Dalton-Shirley Unavailable +[phone] Kingsley Garcia MD Unavailable + [phone] Segundo Mcclelland MD Unavailable [phone] Master Shea PA-C Unavailable Allyssa Justice MD Unavailable [phone] Genaro Christian MD Unavailable [phone] Master Shea-C Unavailable Sienna Guillermo DO Unavailable [phone] Allyssa Justice MD Unavailable [phone] Encounter Details Date Type Department Care Team (Late st Contact Info) Description 12/15/2023 [facility] [address] [place] [address] Lani Quiles, RN Social History Tobacco Use Types Packs/Day [...] AM CDT Office Visit [facility] [address] [place] [address] [place] [address] [place] [address] documented as of this encounter Visit Diagnoses Not on file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 Rule Out COVID-19 01/18/2024 01/18/2024 01/18/2024 8:53 PM DOWEL SETTING MACHINE OPERATOR Rule Out COVID-19 01/28/2024 01/28/2024 01/28/2024 10:22 PM DOWEL SETTING MACHINE OPERATOR Rule Out COVID-19 02/17/2024 02/17/2024 02/17/2024 5:07 PM CDT Assessment Noted Time PHQ-9 Depression Total Score: 3 05/27/20 5:00 PM CDT documented as of this encounter Care Teams Right Of Way Worker Relationship Specialty Start [place] [address] [address] [address] PCP - General Family Medicine 04/22/23 [place] [address] [address] [address] Assigned Pain Medication Provider 12/07/22 [place] [address] [address] [address] Assigned PCP 01/23/23 [place] [address] [place] [address] Assigned Musculoskeletal Provider 01/23/23 Gregorio Daltno PA-C [address] [place] [address] Assigned Surgical Provider 05/22/23 Kingsley Garcia MD [address] [place] [address] Assigned Heart and Vascular Provider 08/07/23 [place] [address] [place] [address] Family Medicine 09/10/23 Master Shea PA-C [address] [place] [address] Physician Region Manager Gastroenterology 09/10/23 Allyssa Justice MD [facility] [address] [place] [address] Hematology & Oncology 12/10/23 Genaro Christian MD [address] [place] [address]135 Cardiovascular Disease 12/22/23 Master Shea PA-C [address] [place] [address] Assigned Gastroenterology Provider 12/23/23 Sienna Guillermo DO [address] [place] [address] Physician Cardiovascular Disease 01/18/24 Allyssa Justice MD [facility] [address] [place] [address] Assigned Cancer Care Provider 03/21/24 documented as of this encounter
--- OUTSIDE RECORDS SUMMARY | 2024-03-25 18:22 | XMS_ITS | Encounter Summary ---
Author Name Unknown Organization [place] Address [facility] [place] [address] Care Team Providers Care Eyeletter Name Role Phone Segundo Mcclelland MD Unavailable [phone] Segundo Mcclelland MD Unavailable [phone] Qamar Jackson MD Unavailable Segundo Mcclelland MD Primary Care Provider + Gregorio Dalton PA-C Unavailable [phone] Kingsley Garcia MD Unavailable + [phone] Segundo Mcclelland MD Unavailable [phone] Master Shea PA-C Unavailable Allyssa Justice MD Unavailable [phone] Genaro Christian MD Unavailable + [phone] Master Shea-C Unavailable Sienna Guillermo DO Unavailable [phone] Allyssa Justice MD Unavailable [phone] Encounter Details Date Type Department Care Team (Late st Contact Info) Description 05/31/2023 MyC Medical Advice [facility] [address] [place] [address] [place] [address] [place] [address] Social History Tobacco Use Types Packs/Day Years [...] suspected to have Coronavirus/COVID-19? No / Unsure 06/03/2023 8:54 PM CDT documented as of this encounter Miscellaneous Notes * Telephone Encounter - Miguel López RN - 06/02/2023 12:23 PM CDT Please see Job[employer] message in reference to knee pain. Routed to PCP, Please review and advise if anything can be done before 06/09 procedure. Thank you, Miguel López RN documented in this encounter Plan of Treatment Upcoming Encounters Date Type Department Care Team (Late st Contact Info) Description 05/09/2024 10:00 AM CDT Office Visit [facility] [address] [facility] [place] [address] [place] [address] [place], [place] [address] documented as of this encounter Visit Diagnoses Not on filedocumented in this encounter Additional Health Concerns Infection Onset Date Last Indicated Resolved Time Rule Out C-difficile 06/04/2023 06/04/2023 023 11:28 AM CDT Rule Out Eleonora auris 06/04/2023 06/04/202306/07 9:24 AM CDT 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 03/08/2024 Rule Out COVID-19 11/10/2023 11/10/2023 11/10/2023 7:17 PM GEOPHYSICAL DRAFTER Rule Out COVID-19 01/18/2024 01/18/2024 01/18/2024 8:53 PM GEOPHYSICAL DRAFTER Rule Out COVID-19 01/28/2024 01/28/2024 01/28/2024 10:22 PM GEOPHYSICAL DRAFTER Rule Out COVID-19 02/17/2024 02/17/2024 02/17/2024 5:07 PM CDT Assessment Noted Time PHQ-9 Depression Total Score: 3 05/27/20 5:00 PM CDT documented as of this encounter Care Teams Eyeletter Relationship Specialty Start [place] [address] [place] [address] PCP - General Family Medicine 04/22/23 [place] [address] [place] [address] Assigned Pain Medication Provider 12/07/22 [place] [address] [address] [address] Assigned PCP 01/23/23 [place] [address] [place] [address] Assigned Musculoskeletal Provider 01/23/23 Gregorio Dalton PA-C [address] [address] Assigned Surgical Provider 05/22/23 Kingsley Garcia MD [address] [place] [address] Assigned Heart and Vascular Provider 08/07/23 [place] [address] [address] Family Medicine 09/10/23 Master Shea PA-C [address] [place] [address] Physician Cotton Opener Gastroenterology 09/10/23 Allyssa Justice MD [facility] [address] [place] [address] Hematology & Oncology 12/10/23 Genaro Christian MD [address] [place] [address] Cardiovascular Disease 12/22/23 Master Shea PA-C [address] [place] [address] Assigned Gastroenterology Provider 12/23/23 Sienna Guillermo DO [address] [place] [address] Physician Cardiovascular Disease 01/18/24 Allyssa Justice MD [facility] [address] [place] [address] Assigned Cancer Care Provider 03/21/24 documented as of this encounter
--- OUTSIDE RECORDS SUMMARY | 2024-03-25 18:22 | XMS_ITS | Encounter Summary ---
Author Name Unknown Organization [place] Address [facility] [place] [address] Care Team Providers Care Medical Records Auditor Name Role Phone Segundo Mcclelland MD Unavailable [phone] Segundo Mcclelland MD Unavailable [phone] Qamar Jackson MD Unavailable Segundo Mcclelland MD Primary Care Provider + Gregorio Dalton-Shirley Unavailable [phone] Kingsley Garcia MD Unavailable + [phone] Segundo Mcclelland MD Unavailable [phone] Master Shea PA-C Unavailable Allyssa Justice MD Unavailable [phone] Genaro Christian MD Unavailable + [phone] Master Shea-C Unavailable Sienna Guillermo DO Unavailable [phone] Allyssa Justice MD Unavailable [phone] Encounter Details Date Type Department Care Team (Late st Contact Info) Description 12/13/2023 MyC Medical Advice [address] [address] Sarah Stevens Social History Tobacco Use Types Packs/Day Years [...] CDT Office Visit [facility] [address] [place] [address] [place] [address] [place] [address] documented as of this encounter Visit Diagnoses Not on file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 Rule Out COVID-19 01/18/2024 01/18/2024 01/18/2024 8:53 PM DRUG INSPECTOR Rule Out COVID-19 01/28/2024 01/28/2024 01/28/2024 10:22 PM DRUG INSPECTOR Rule Out COVID-19 02/17/2024 02/17/2024 02/17/2024 5:07 PM CDT Assessment Noted Time PHQ-9 Depression Total Score: 3 05/27/20 5:00 PM CDT documented as of this encounter Care Teams Medical Records Auditor Relationship Specialty Start [place] [address] [address] [address] PCP - General Family Medicine 04/22/23 [place] [address] [address] [address] Assigned Pain Medication Provider 12/07/22 [place] [address] [address] [address] Assigned PCP 01/23/23 [place] [address] [place] [address] Assigned Musculoskeletal Provider 01/23/23 Gregorio Dalton PA-C [address] [address] Assigned Surgical Provider 05/22/23 Kingsley Garcia MD [address] [place] [address] Assigned Heart and Vascular Provider 08/07/23 [place] [address] [address] [address] Family Medicine 09/10/23 Master Shea PA-C [address] [place] [address] Physician Sales Architect Gastroenterology 09/10/23 Allyssa Justice MD [facility] [address] [place] [address] Hematology & Oncology 12/10/23 Genaro Christian MD [address] [place] [address] Cardiovascular Disease 12/22/23 Master Shea PA-C [address] [place] [place] [address] Assigned Gastroenterology Provider 12/23/23 Sienna Guillermo DO [address] [place] [address] Physician Cardiovascular Disease 01/18/24 Allyssa Justice MD [facility] [address] [place] [address] Assigned Cancer Care Provider 03/21/24 documented as of this encounter
--- OUTSIDE RECORDS SUMMARY | 2024-03-25 18:22 | XMS_ITS | Encounter Summary ---
Author Name Unknown Organization [place] Address [facility] [place] [address] Care Team Providers Care Manager Child Name Role Phone Segundo Mcclelland MD Unavailable [phone] Segundo Mcclelland MD Unavailable [phone] Qamar Jackson MD Unavailable Segundo Mcclelland MD Primary Care Provider + Gregorio Dalton PA-C Unavailable +[phone] Kingsley Garcia MD Unavailable + [phone] Segundo Mcclelland MD Unavailable +[phone] Master Shea PA-C Unavailable Allyssa Justice MD Unavailable [phone] Genaro Christian MD Unavailable [phone] Master Shea-C Unavailable Sienna Guillermo DO Unavailable +[phone] Allyssa Justice MD Unavailable [phone] Reason for Visit * Reason Onset Date Comments Referral 09/24/2023 GI Nutrition Con cerns Encounter Details Date Type Department Care Team (Late st Contact Info) Description 09/24/[address] [address] [place] [address] [place] [address] Referral (GI Nutrition Concerns ) Social History Tobacco Use Types Packs/Day [...] encounter Miscellaneous Notes * Telephone Encounter - Izzy Bates Baylee - 09/30/2023 8:11 AM CDT 09/30 2nd attempt. Called and left voicemail, provided phone number [phone] to schedule new nutrition visit type with nay Muniz. Izzy barfield Procedure Service Manager Orthopedics, Podiatry, Sports Medicine, Ent ,Eye , Audiology, Adult Endocrine & Diabetes, Nutrition & Medication Therapy Management Specialties [facility] * Telephone Encounter - Izzy Bates - 09/24/2023 1:29 PM CDT 09/24 Called and left voicemail, provided phone number [phone] to schedule new nutrition visittype with nay Muniz. Izzy barfield Procedure Service Manager Orthopedics, Podiatry, Sports Medicine, Ent ,Eye , Audiology, Adult Endocrine & Diabetes, Nutrition & Medication Therapy Management Specialties [facility] * Telephone Encounter - Hannah Fernandez - 09/24/2023 1:22 PM CDT [facility] Phone Message May a detailed message be left on voicemail: yes Reason for Call: Appointment Intake Referring Provider Name: Master Shea PA-C in GI Diagnosis and/or Symptoms: Malnutrition + Gastroparesis Template for Nay Muniz, RD is not loading New requires block match unclear what this means- sending for review - thank you! Action Taken: Message routed to: Other: Nutrition Travel Screening: Not Applicable documented in this encounter Plan of Treatment Upcoming Encounters Date Type Department Care Team (Late st Contact Info) Description 05/09/2024 10:00 AM CDT Office Visit [facility] [address] [place] [address] [place] [address] [place] [address] documented as of this encounter Visit Diagnoses Not on file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 Rule Out COVID-19 11/10/2023 11/10/2023 11/10/2023 7:17 PM INDUSTRIAL CUSTODIAN Rule Out COVID-19 01/18/2024 01/18/2024 01/18/2024 8:53 PM INDUSTRIAL CUSTODIAN Rule Out COVID-19 01/28/2024 01/28/2024 01/28/2024 10:22 PM INDUSTRIAL CUSTODIAN Rule Out COVID-19 02/17/2024 02/17/2024 02/17/2024 5:07 PM CDT Assessment Noted Time PHQ-9 Depression Total Score: 3 05/27/20 5:00 PM CDT documented as of this encounter Care Teams Manager Child Relationship Specialty Start [place] [address] [place] [address] PCP - General Family Medicine 04/22/23 [place] [address] [place] [address] Assigned Pain Medication Provider 12/07/22 [place] [address] [address] [address] Assigned PCP 01/23/23 [place] [address] [place] [address] Assigned Musculoskeletal Provider 01/23/23 Gregorio Dalton PA-C [address] [address] Assigned Surgical Provider 05/22/23 Kingsley Garcia MD [address] [place] [address] Assigned Heart and Vascular Provider 08/07/23 [place] [address] [address] [address] Family Medicine 09/10/23 Master Shea PA-C [address] [place] [address] Physician Sales Training Coordinator Gastroenterology 09/10/23 Allyssa Justice MD [facility] [address] [place] [address] Hematology & Oncology 12/10/23 Genaro Christian MD [address] [place] [address] Cardiovascular Disease 12/22/23 Master Shea PA-C [address] [place] [address] Assigned Gastroenterology Provider 12/23/23 Sienna Guillermo DO [address] [place] [address] Physician Cardiovascular Disease 01/18/24 Allyssa Justice MD [facility] [address] [place] [address] Assigned Cancer Care Provider 03/21/24 documented as of this encounter
--- OUTSIDE RECORDS SUMMARY | 2024-03-25 18:22 | XMS_ITS | Encounter Summary ---
Author Name Unknown Organization [place] Address [facility] [place] [address] Care Team Providers Care Regional Administrative Assistant Name Role Phone Segundo Mcclelland MD Unavailable [phone] Segundo Mcclelland MD Unavailable [phone] Qamar Jackson MD Unavailable Segundo Mcclelland MD Primary Care Provider + Gregorio Dalton PA-C Unavailable +[phone] Kingsley Garcia MD Unavailable + [phone] Segundo Mcclelland MD Unavailable +[phone] Master Shea PA-C Unavailable Allyssa Justice MD Unavailable [phone] Genaro Christian MD Unavailable [phone] Master Shea-Shirley Unavailable Sienna Guillermo DO Unavailable +[phone] Allyssa Justice MD Unavailable [phone] Encounter Details Date Type Department Care Team (Late st Contact Info) Description 09/27/2023 MyC Medical Advice [address] [address] Stephanie Mcintosh Social History Tobacco Use Types Packs/Day Years [...] Description 05/09/2024 10:00 AM CDT Office Visit [facility] [address] [place] [address] [place] [address] [place] [address] documented as of this encounter Visit Diagnoses Not on file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 Rule Out COVID-19 11/10/2023 11/10/2023 11/10/2023 7:17 PM COMMUNITY DEVELOPMENT SPECIALIST Rule Out COVID-19 01/18/2024 01/18/2024 01/18/2024 8:53 PM COMMUNITY DEVELOPMENT SPECIALIST Rule Out COVID-19 01/28/2024 01/28/2024 01/28/2024 10:22 PM COMMUNITY DEVELOPMENT SPECIALIST Rule Out COVID-19 02/17/2024 02/17/2024 02/17/2024 5:07 PM CDT Assessment Noted Time PHQ-9 Depression Total Score: 3 05/27/20 5:00 PM CDT documented as of this encounter Care Teams Regional Administrative Assistant Relationship Specialty Start [place] [address] [address] [address] PCP - General Family Medicine 04/22/23 [place] [address] [address] [address] Assigned Pain Medication Provider 12/07/22 [place] [address] [address] [address] Assigned PCP 01/23/23 [place] [address] [place] [address] Assigned Musculoskeletal Provider 01/23/23 Gregorio Dalton PA-C [address] [address] Assigned Surgical Provider 05/22/23 Kingsley Garcia MD [address] [place] [address] Assigned Heart and Vascular Provider 08/07/23 [place] [address] [place] [address] Family Medicine 09/10/23 Master Shea PA-C [address] [place] [address] Physician Hem Marker Gastroenterology 09/10/23 Allyssa Justice MD [facility] [address] [place] [address] Hematology & Oncology 12/10/23 Genaro Christian MD [address] [place] [address] Cardiovascular Disease 12/22/23 Master Shea PA-C [address] [place] [address] Assigned Gastroenterology Provider 12/23/23 Sienna Guillermo DO [address] [place] [address] Physician Cardiovascular Disease 01/18/24 Allyssa Justice MD [facility] [address] [place] [address] Assigned Cancer Care Provider 03/21/24 documented as of this encounter
--- OUTSIDE RECORDS SUMMARY | 2024-03-25 18:22 | XMS_ITS | Encounter Summary ---
Author Name Unknown Organization [place] Address [facility] [place] [address] Care Team Providers Care Foreign Policy Officer Name Role Phone Segundo Mcclelland MD Unavailable [phone] Segundo Mcclelland MD Unavailable [phone] Qamar Jackson MD Unavailable Segundo Mcclelland MD Primary Care Provider + Gregorio Dalton PA-C Unavailable +[phone] Kingsley Garcia MD Unavailable + [phone] Segundo Mcclelland MD Unavailable [phone] Master hSea PA-C Unavailable Allyssa Justice MD Unavailable [phone] Genaro Christian MD Unavailable + [phone] Master Shea-Shirley Unavailable Sienna Guillermo DO Unavailable +[phone] Allyssa Justice MD Unavailable [phone] Reason for Visit * Reason Onset Date Comments Call Back 10/19/2023 Discuss Pt's Shashank taylor Encounter Details Date Type Department Care Team (Late st Contact Info) Description 10/19/[address] [address] Master Shea PA-C [address] [place] [address] Call Back (Discuss Pt's Billing ) Social History Tobacco Use Types Packs/Day [...] encounter Miscellaneous Notes * Telephone Encounter - Saloni Norton RN - 10/19/2023 11:47 AM CST Call back to Debbie, with medical billing. No answer, message left with call back info provided. Saloni Norton RN CAR BRAKE OPERATOR * Telephone Encounter - Shabana Cyr - 10/19/2023 11:21 AM CST [facility] Phone Message May a detailed message be left on voicemail: yes Reason for Call: Other: Debbie is requesting a call back from the team please to discuss Pt's billing. Please reach out to discuss. Thank you! Action Taken: Message routed to: [facility] GI Travel Screening: Not Applicable CAR BRAKE OPERATOR documented in this encounter Plan of Treatment Upcoming Encounters Date Type Department Care Team (Late st Contact Info) Description 05/09/2024 10:00 AM CDT Office Visit [facility] [address] [facility] [place] [address] [place] [address] [place] [address] documented as of this encounter Visit Diagnoses Not on file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 Rule Out COVID-19 11/10/2023 11/10/2023 11/10/2023 7:17 PM RAILCAR BRAKE OPERATOR Rule Out COVID-19 01/18/2024 01/18/2024 01/18/2024 8:53 PM RAILCAR BRAKE OPERATOR Rule Out COVID-19 01/28/2024 01/28/2024 01/28/2024 10:22 PM RAILCAR BRAKE OPERATOR Rule Out COVID-19 02/17/2024 02/17/2024 02/17/2024 5:07 PM CDT Assessment Noted Time PHQ-9 Depression Total Score: 3 05/27/20 23 5:00 PM CDT documented as of this encounter Care Teams Foreign Policy Officer Relationship Specialty Start [place] [address] [place] [address] PCP - General Family Medicine 04/22/23 [place] [address] [place] [address] Assigned Pain Medication Provider 12/07/22 [place] [address] [place] [address] Assigned PCP 01/23/23 [place] [address] [place] [address] Assigned Musculoskeletal Provider 01/23/23 Gregorio Dalton PA-C [address] [place] [address] Assigned Surgical Provider 05/22/23 Kingsley Garcia MD [address] [place] [address] Assigned Heart and Vascular Provider 08/07/23 [place] [address] [place] [address] Family Medicine 09/10/23 Master Shea PA-C [address] [place] [address] Physician Detonator Assembler Gastroenterology 09/10/23 Allyssa Justice MD [facility] [address] [place] [address] Hematology & Oncology 12/10/23 Genaro Christian MD [address] [place] [address] Cardiovascular Disease 12/22/23 Master Shea PA-C [address] [place] [address] Assigned Gastroenterology Provider 12/23/23 Sienna Guillermo DO [address] [place] [address] Physician Cardiovascular Disease 01/18/24 Allyssa Justice MD [facility] [address] [place] [address] Assigned Cancer Care Provider 03/21/24 documented as of this encounter
--- OUTSIDE RECORDS SUMMARY | 2024-03-25 18:22 | XMS_ITS | Encounter Summary ---
Author Name Unknown Organization [place] Address [facility] [place] [address] Care Team Providers Care Preschool Principal Name Role Phone Segundo Mcclelland MD Unavailable [phone] Segundo Mcclelland MD Unavailable [phone] Qamar Jackson MD Unavailable Segundo Mcclelland MD Primary Care Provider + Gregorio Dalton PA-C Unavailable +[phone] Kingsley Garcia MD Unavailable + [phone] Segundo Mcclelland MD Unavailable [phone] Master Shea PA-C Unavailable Allyssa Justice MD Unavailable [phone] Genaro Christian MD Unavailable [phone] Master Shea-Shirley Unavailable Sienna Guillermo DO Unavailable +[phone] Allyssa Justice MD Unavailable [phone] Encounter Details Date Type Department Care Team (Late st Contact Info) Description 07/23/2023 [facility] [place] [address] [facility] [address] [place] [address] Gregorio Dalton PA-C [address] [place] [address] Social History Tobacco Use Types Packs/Day Years [...] suspected to have Coronavirus/COVID-19? No / Unsure 07/23/2023 2:45 PM CDT documented as of this encounter Plan of Treatment Upcoming Encounters Date Type Department Care Team (Late st Contact Info) Description 05/09/2024 10:00 AM CDT Office Visit [facility] [address] [place] [phone] [place] [address] [place] [address] documented as of this encounter Visit Diagnoses Not on file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 Rule Out COVID-19 11/10/2023 11/10/2023 11/10/2023 7:17 PM LEGAL ADMINISTRATOR Rule Out COVID-19 01/18/2024 01/18/2024 01/18/2024 8:53 PM LEGAL ADMINISTRATOR Rule Out COVID-19 01/28/2024 01/28/2024 01/28/2024 10:22 PM LEGAL ADMINISTRATOR Rule Out COVID-19 02/17/2024 02/17/2024 02/17/2024 5:07 PM CDT Assessment Noted Time PHQ-9 Depression Total Score: 3 05/27/20 5:00 PM CDT documented as of this encounter Care Teams Preschool Principal Relationship Specialty Start [place] [address] [address] [address] PCP - General Family Medicine 04/22/23 [place] [address] [address] [address] Assigned Pain Medication Provider 12/07/22 [place] [address] [address] [address] Assigned PCP 01/23/23 [place] [address] [place] [address] Assigned Musculoskeletal Provider 01/23/23 Gregorio Dalton PA-C [address] [place] [address] Assigned Surgical Provider 05/22/23 Kingsley Garcia MD [address] [place] [address] Assigned Heart and Vascular Provider 08/07/23 [place] [address] [address] [address] Family Medicine 09/10/23 Master Shea PA-C [address] [place] [address] Physician Hoisting Pile Driving Engineer Gastroenterology 09/10/23 Allyssa Justice MD [facility] [address] [place] [address] Hematology & Oncology 12/10/23 Genaro Christian MD [address] [place], [place] [address] Cardiovascular Disease 12/22/23 Master Shea PA-C [address] [place] [address] Assigned Gastroenterology Provider 12/23/23 Sienna Guillermo DO [address] [place] [address] Physician Cardiovascular Disease 01/18/24 Allyssa Justice MD [facility] [address] [place] [address] Assigned Cancer Care Provider 03/21/24 documented as of this encounter
--- OUTSIDE RECORDS SUMMARY | 2024-03-25 18:22 | XMS_ITS | Encounter Summary ---
Author Name Unknown Organization [place] Address [address] [place] [address] Care Team Providers Care Jute Bag Cutting Machine Operator Name Role Phone Segundo Mcclelland MD Unavailable [phone] Segundo Mcclelland MD Unavailable [phone] Qamar Jackson MD Unavailable Segundo Mcclelland MD Primary Care Provider + Gregorio Dalton-C Unavailable +[phone] Kingsley Garcia MD Unavailable + [phone] Segundo Mcclelland MD Unavailable [phone] Master Shea-Shirley Unavailable Allyssa Justice MD Unavailable [phone] Genaro Christian MD Unavailable [phone] Master Shea-C Unavailable Sienna Guillermo DO Unavailable +[phone] Allyssa Justice MD Unavailable [phone] Encounter Details Date Type Department Care Team (Late st Contact Info) Description 05/18/2023 MyC Medical Advice [facility] [address] [place] [address] Clive Mittal MA Social History Tobacco Use Types Packs/Day Years Used Date Smoking Tobacco: Never Smokeless Tobacco: Never Alcohol Use Standard Drinks/Week Comments Yes 0 (1 standard drink = 0.6 oz pur e alcohol) occasional PHQ-2 Answer Date Recorded PHQ-2 Score 3 04/05/2023 Sex and Gender Information Value Date Recorded Sex Assigned at Female 05/26/2021 10:37 AM CDT Gender Identity Female 05/26/2021 10:37 AM CDT Sexual Orientation Straight 05/26/2021 10 :37 AM CDT COVID-19 Exposure Response Date Recorded In the last 10 days, have yo u been in contact with someone who was confirmed or suspected to have Coronavirus/COVID-19? No / Unsure 05/04/2023 5:56 PM CDT documented as of this encounter Plan of Treatment Upcoming Encounters Date Type Department Care Team (Late st Contact Info) Description 05/09/2024 10:00 AM CDT Office Visit [facility] [address] [place] [address] [place] [address] [place] [address] documented as of this encounter Visit Diagnoses Not on filedocumented in this encounter Additional Health Concerns Infection Onset Date Last Indicated Resolved Time Rule Out C-difficile 06/04/2023 06/04/2023 07 023 11:28 AM CDT Rule Out Eleonora auris 06/04/2023 06/04/202306/07 9:24 AM CDT 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 03/08/2024 Rule Out COVID-19 11/10/2023 11/10/2023 11/10/2023 7:17 PM BOIL OFF MACHINE OPERATOR CLOTH Rule Out COVID-19 01/18/2024 01/18/2024 01/18/2024 8:53 PM BOIL OFF MACHINE OPERATOR CLOTH Rule Out COVID-19 01/28/2024 01/28/2024 01/28/2024 10:22 PM BOIL OFF MACHINE OPERATOR CLOTH Rule Out COVID-19 02/17/2024 02/17/2024 02/17/2024 5:07 PM CDT Assessment Noted Time PHQ-9 Depression Total Score: 6 04/05/20 23 8:14 AM CDT documented as of this encounter Care Teams Jute Bag Cutting Machine Operator Relationship Specialty Start [place] [address] [address] [address] PCP - General Family Medicine 04/22/23 [place] [address] [address] [address] Assigned Pain Medication Provider 12/07/22 [place] [address] [address] [address] Assigned PCP 01/23/23 [place] [address] [place] [address] Assigned Musculoskeletal Provider 01/23/23 Gregorio Dalton PA-C [address] [address] Assigned Surgical Provider 05/22/23 Kingsley Garcia MD [address] [place] [address] Assigned Heart and Vascular Provider 08/07/23 [place] [address] [address] Family Medicine 09/10/23 Master Shea PA-C [address] [place] [address] Physician Manager Floral Gastroenterology 09/10/23 Allyssa Justice MD [facility] [address] [place] [address] Hematology & Oncology 12/10/23 Genaro Christian MD [address] [place] [address] Cardiovascular Disease 12/22/23 Master Shea PA-C [address] [place] [address] Assigned Gastroenterology Provider 12/23/23 Sienna Guillermo DO [address] [place] [address] Physician Cardiovascular Disease 01/18/24 Allyssa Justice MD [facility] [address] [place] [address] Assigned Cancer Care Provider 03/21/24 documented as of this encounter
--- OUTSIDE RECORDS SUMMARY | 2024-03-25 18:22 | XMS_ITS | Encounter Summary ---
Author Name Unknown Organization [place] Address [facility] [place] [address] Care Team Providers Care Strategic Planning Analyst Name Role Phone Segundo Mcclelland MD Unavailable [phone] Segundo Mcclelland MD Unavailable [phone] Qamar Jackson MD Unavailable Segundo Mcclelland MD Primary Care Provider + Gregorio Dalton-C Unavailable [phone] Kingsley Garcia MD Unavailable + [phone] Segundo Mcclelland MD Unavailable [phone] Master Shea-Shirley Unavailable Allyssa Justice MD Unavailable [phone] Genaro Christian MD Unavailable [phone] Master Shea-C Unavailable Sienna Guillermo DO Unavailable +[phone] Allyssa Justice MD Unavailable [phone] Encounter Details Date Type Department Care Team (Late st Contact Info) Description 05/19/2023 MyC Medical Advice [facility] [address] [place] [address] Rita Gordon, [facility] [address] [place] [address] Social History Tobacco Use Types Packs/Day Years [...] Description 05/09/2024 10:00 AM CDT Office Visit [facility] [address] [place] [address] [place] [address] [place] [address] documented as of this encounter Visit Diagnoses Not on filedocumented in this encounter Additional Health Concerns Infection Onset Date Last Indicated Resolved Time Rule Out C-difficile 06/04/2023 06/04/2023 023 11:28 AM CDT Rule Out Eleonora auris 06/04/2023 06/04/202306/07 9:24 AM CDT 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 03/08/2024 Rule Out COVID-19 11/10/2023 11/10/2023 11/10/2023 7:17 PM INTERMEDIATE DESIGNER Rule Out COVID-19 01/18/2024 01/18/2024 01/18/2024 8:53 PM INTERMEDIATE DESIGNER Rule Out COVID-19 01/28/2024 01/28/2024 01/28/2024 10:22 PM INTERMEDIATE DESIGNER Rule Out COVID-19 02/17/2024 02/17/2024 02/17/2024 5:07 PM CDT Assessment Noted Time PHQ-9 Depression Total Score: 6 04/05/20 8:14 AM CDT documented as of this encounter Care Teams Strategic Planning Analyst Relationship Specialty Start [place] [address] [place] [address] PCP - General Family Medicine 04/22/23 [place] [address] [place] [address] Assigned Pain Medication Provider 12/07/22 [place] [address] [place] [address] Assigned PCP 01/23/23 [place] [address] [place] [address] Assigned Musculoskeletal Provider 01/23/23 Gregorio Dalton PA-C [address] [place] [address] Assigned Surgical Provider 05/22/23 Kingsley Garcia MD [address] [place] [address] Assigned Heart and Vascular Provider 08/07/23 [place] [address] [place] [address] Family Medicine 09/10/23 Master Shea PA-C [address] [place] [address] Physician Lead Machinist Gastroenterology 09/10/23 Allyssa Justice MD [facility] [address] [place] [address] Hematology & Oncology 12/10/23 Genaro Christian MD [address] [place] [address] Cardiovascular Disease 12/22/23 Master Shea PA-C [address] [place] [address] Assigned Gastroenterology Provider 12/23/23 Sienna Guillermo DO [address] [place] [address] Physician Cardiovascular Disease 01/18/24 Allyssa Justice MD [facility] [address] [place] [address] Assigned Cancer Care Provider 03/21/24 documented as of this encounter
--- OUTSIDE RECORDS SUMMARY | 2024-03-25 18:22 | XMS_ITS | Encounter Summary ---
Author Name Unknown Organization [place] Address [facility] [place] [address] Care Team Providers Care Data Architect Manager Name Role Phone Segundo Mcclelland MD Unavailable [phone] Segundo Mcclelland MD Unavailable +[phone] Qamar Jackson MD Unavailable Segundo Mcclelland MD Primary Care Provider + Gregorio Dalton PA-C Unavailable +[phone] Kingsley Garcia MD Unavailable + [phone] Segundo Mcclelland MD Unavailable [phone] Master Shea PA-C Unavailable Allyssa Justice MD Unavailable [phone] Genaro Christian MD Unavailable + [phone] Master Shea-C Unavailable Sienna Guillermo DO Unavailable +[phone] Allyssa Justice MD Unavailable [phone] Encounter Details Date Type Department Care Team (Late st Contact Info) Description 05/26/2023 MyC Medical Advice [facility] [address] [place] [address] [place] [address] [place] [address] Injury of right knee, subsequent encounter Social History Tobacco Use Types Packs/Day Years [...] suspected to have Coronavirus/COVID-19? No / Unsure 05/28/2023 12:36 PM CDT documented as of this encounter Miscellaneous Notes * Telephone Encounter - Heidi Gan - 05/28/2023 7:31 AM CDT Faxed completed [facility] referral. Heidi Gan Physical Science Technician * Telephone Encounter - Heidi Gan - 05/27/2023 9:00 AM CDT Scheduled patient for pre-op tomorrow, 05/28. Currently preparing Referral Form and will place in provider basket when complete. Heidi Gan Physical Science Technician * Telephone Encounter - Sienna Wilder RN - 05/27/2023 8:21 AM CDT Will forward to the station, please try to help the pt schedule for a pre-op. Can you also see if you can help get Dr. Mcclelland form - I believe the pt is restricted - needs a form for a referral sent to [facility]. Will forward to Dr. Mcclelland for the referral and possible refill. documented in this encounter Plan of Treatment Upcoming Encounters Date Type Department Care Team (Late st Contact Info) Description 05/09/2024 10:00 AM CDT Office Visit [facility] [place] [address] [address] [place] [address] [address] documented as of this encounter Visit Diagnoses Diagnosis Injury of right knee, subsequent encounter documented in this encounter Additional Health Concerns Infection Onset Date Last Indicated Resolved Time Rule Out C-difficile 06/04/2023 06/04/2023 023 11:28 AM CDT Rule Out Eleonora auris 06/04/2023 06/04/202306/07 9:24 AM CDT 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 03/08/2024 Rule Out COVID-19 11/10/2023 11/10/2023 11/10/2023 7:17 PM HAT BINDER Rule Out COVID-19 01/18/2024 01/18/2024 01/18/2024 8:53 PM HAT BINDER Rule Out COVID-19 01/28/2024 01/28/2024 01/28/2024 10:22 PM HAT BINDER Rule Out COVID-19 02/17/2024 02/17/2024 02/17/2024 5:07 PM CDT Assessment Noted Time PHQ-9 Depression Total Score: 6 04/05/20 23 8:14 AM CDT documented as of this encounter Care Teams Data Architect Manager Relationship Specialty Start [place] [address] [address] PCP - General Family Medicine 04/22/23 [place] [address] [address] Assigned Pain Medication Provider 12/07/22 [place] [address] [place] [address] Assigned PCP 01/23/23 [place] [address] [place] [address] Assigned Musculoskeletal Provider 01/23/23 Gregorio Dalton PA-C [address] [place] [address] Assigned Surgical Provider 05/22/23 Kingsley Garcia MD [address] [place] [address] Assigned Heart and Vascular Provider 08/07/23 [place] [address] [place] [address] Family Medicine 09/10/23 Master Shea PA-C [address] [place] [address] Physician Dispatcher Refinery Gastroenterology 09/10/23 Allyssa Justice MD [facility] [address] [place] [address] Hematology & Oncology 12/10/23 Genaro Christian MD [address] [place] [address] Cardiovascular Disease 12/22/23 Master Shea PA-C [address] [place] [address] Assigned Gastroenterology Provider 12/23/23 Sienna Guillermo DO [address] [place] [address] Physician Cardiovascular Disease 01/18/24 Allyssa Justice MD [facility] [address] [place] [address] Assigned Cancer Care Provider 03/21/24 documented as of this encounter
--- OUTSIDE RECORDS SUMMARY | 2024-03-25 18:23 | XMS_ITS | Encounter Summary ---
Author Name Unknown Organization [place] Address [address] [place] [address] Care Team Providers Care Chicken Boner Name Role Phone Sienna Guillermo DO Unavailable [phone] No Ref-Primary, Physician Primary Care Provider Mai Urena-C Unavailable [phone] Segundo Mcclelland MD Unavailable +[phone] Segundo Mcclelland MD Unavailable +[phone] Qamar Jackson MD Unavailable Segundo Mcclelland MD Primary Care Provider + Amy Montes De Oca RN Unavailable +[phone] Gregorio Dalton-C Unavailable +[phone] Kingsley Garcia MD Unavailable + [phone] Segundo Mcclelland MD Unavailable +[phone] Master Shea-C Unavailable Allyssa Justice MD Unavailable [phone] Genaro Christian MD Unavailable [phone] Master Shea-C Unavailable Sienna Guillermo DO Unavailable +[phone] Allyssa Justice MD Unavailable [phone] Reason for Visit * Reason Onset Date Comments Prior Auth - Medication 01/02/2023 semaglut yury (OZEMPIC) 2 MG/1.5ML SOPN pen - EPA DENIED Encounter Details Date Type Department Care Team (Late Contact Info) Description 01/02/2023 Telephone [facility] [address] [place] [address] [place] [address] [place] [address] Prior Auth - Medication (semaglutide (OZEMPIC) 2 MG/1.5ML SOPN pen - EPA DENIED) Social History Tobacco Use Types Packs/Day Years Used Date Smoking Tobacco: Never Smokeless Tobacco: Never Alcohol Use Standard Drinks/Week Comments Yes 0 (1 standard drink = 0.6 oz pur e alcohol) occasional PHQ-2 Answer Date Recorded PHQ-2 Score 1 01/01/2023 Sex and Gender Information Value Date Recorded Sex Assigned at Female 05/26/2021 10:37 AM CDT Gender Identity Female 05/26/2021 10:37 AM CDT Sexual Orientation Straight 05/26/2021 10 :37 AM CDT COVID-19 Exposure Response Date Recorded In the last 10 days, have yo u been in contact with someone who was confirmed or suspected to have Coronavirus/COVID-19? No / Unsure 01/04/2023 3:15 PM GLASS BLOCK INSTALLER documented as of this encounter Miscellaneous Notes * Telephone Encounter - Zac Schaffer - 01/02/2023 10:48 AM CST Images from the original note were not included. Central Prior Authorization Team PRIOR AUTHORIZATION DENIED Medication: semaglutide (OZEMPIC) 2 MG/1.5ML SOPN pen - EPA DENIED Denial Date: 01/01/2023 Denial Rational: Appeal Information: S BLOCK INSTALLER documented in this encounter Plan of Treatment Upcoming Encounters Date Type Department Care Team ([facility] Contact Info) Description 05/09/2024 10:00 AM CDT Office Visit [facility] [place] [address] [phone] [place] [address] [id number] documented as of this encounter Visit Diagnoses Not on filedocumented in this encounter Additional Health Concerns Infection Onset Date Last Indicated Resolved Time Rule Out COVID-19 01/04/2023 01/04/2023 01/04/2023 8:32 PM GLASS BLOCK INSTALLER Rule Out C-difficile 01/04/2023 01/04/2023 023 1:46 AM GLASS BLOCK INSTALLER Rule Out C-difficile 01/07/2023 01/07/2023 023 8:18 PM GLASS BLOCK INSTALLER Rule Out C-difficile 06/04/2023 06/04/2023 023 11:28 AM CDT Rule Out Eleonora auris 06/04/2023 06/04/202306/07 9:24 AM CDT 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 03/08/2024 Rule Out COVID-19 11/10/2023 11/10/2023 11/10/2023 7:17 PM GLASS BLOCK INSTALLER Rule Out COVID-19 01/18/2024 01/18/2024 01/18/2024 8:53 PM GLASS BLOCK INSTALLER Rule Out COVID-19 01/28/2024 01/28/2024 01/28/2024 10:22 PM GLASS BLOCK INSTALLER Rule Out COVID-19 02/17/2024 02/17/2024 02/17/2024 5:07 PM CDT Assessment Noted Time PHQ-9 Depression Total Score: 6 01/01/20 9:53 AM GLASS BLOCK INSTALLER documented as of this encounter Care Teams Chicken Boner Relationship Specialty Start Date End Date No Ref-Primary, Physician PCP - General 11/06/22 04/21/23 [place] [address] [id number] PCP - General Family Medicine 04/22/23 Sienna Guillermo DO [address] [place] [address] Assigned Heart and Vascular Provider 09/05/22 03/12/23 Mai Urena PA-C [address] [place] 67[address] Assigned PCP 10/31/22 01/22/23 [place] [address] [address] [id number] Assigned Pain Medication Provider 12/07/22 [place] [address] [address] [address] Assigned PCP 01/23/23 [place] [address] [place] [address] Assigned Musculoskeletal Provider 01/23/23 Amy Montes De Oca RN Clinic Dining Car Hop 05/13/2305/17 Gregorio Dalotn PA-C [address] [place] [address] Assigned Surgical Provider 05/22/23 Kingsley Garcia MD [address] [place] [address] Assigned Heart and Vascular Provider 08/07/23 [place] [address] [address] [address] Family Medicine 09/10/23 Master Shea PA-C [address] [place] [address] Physician Dean [employer] Girls Gastroenterology 09/10/23 Allyssa Justice MD [facility] [address] [place] [address] Hematology & Oncology 12/10/23 Genaro Christian MD [address] [place] [address] Cardiovascular Disease 12/22/23 Master Shea PA-C [address] [place] [address] Assigned Gastroenterology Provider 12/23/23 Sienna Guillermo DO [address] [place] [address] Physician Cardiovascular Disease 01/18/24 Allyssa Justice MD [facility] [address] [place] [address] Assigned Cancer Care Provider 03/21/24 documented as of this encounter
--- OUTSIDE RECORDS SUMMARY | 2024-03-25 18:23 | XMS_ITS | Encounter Summary ---
Author Name Unknown Organization [place] Address [address] [place] [address] Care Team Providers Care Pipe Finishing Supervisor Name Role Phone Segundo Mcclelland MD Unavailable + [phone] Segundo Mcclelland MD Primary Care Provider + Sandy Cox APRN, CNP Unavailable + Segundo Mcclelland MD Unavailable + [phone] Sienna Guillermo DO Unavailable +[phone] Malia Dhillon MD Primary Care Provider [phone] No Ref-Primary, Physician Primary Care Provider Mai Urena PA-C Unavailable + [phone] Segundo Mcclelland MD Unavailable + [phone] Segundo Mcclelland MD Unavailable + [phone] Qamar Jackson MD Unavailable Segundo Mcclelland MD Primary Care Provider + Amy Montes De Oca RN Unavailable [phone] Gregorio Dalton PA-C Unavailable +[phone] Kingsley Garcia MD Unavailable + [phone] Segundo Mcclelland MD Unavailable +[phone] Master Shea PA-C Unavailable Allyssa Justice MD Unavailable [phone] Genaro Christian MD Unavailable [phone] Master Shea PA-C Unavailable Sienna Guillermo DO Unavailable +[phone] Allyssa Justice MD Unavailable [phone] Reason for Visit * Reason Onset Date Comments Patient Request 01/09/2022 Encounter Details Date Type Department Care Team (Late st Contact Info) Description 01/09/2022 [facility] [address] [place] [address] [place] [address] [place] [address] Patient Request Social History Tobacco Use Types Packs/Day Years Used Date Smoking Tobacco: Never Smokeless Tobacco: Never Alcohol Use Standard Drinks/Week Comments Yes 0 (1 standard drink = 0.6 oz pur e alcohol) occasional PHQ-2 Answer Date Recorded PHQ-2 Score 0 01/09/2022 Sex and Gender Information Value Date Recorded Sex Assigned at Female 05/26/2021 10:37 AM CDT Gender Identity Female 05/26/2021 10:37 AM CDT Sexual Orientation Straight 05/26/2021 10 :37 AM CDT COVID-19 Exposure Response Date Recorded In the last month, have you been in contact with someone who was confirmed or suspected to have Coronavirus / COVID-19? No / Unsure 01/10/2022 2:32 PM WOOD BARREL RECONDITIONER documented as of this encounter Miscellaneous Notes * Telephone Encounter - Donato Argueta RN - 01/09/2022 2:22 PM CST Please see patient Mychart message, follow up from Nurse triage encounter 01/09/22. Donato Means RN BARREL RECONDITIONER documented in this encounter Plan of Treatment Upcoming Encounters Date Type Department Care Team (Late st Contact Info) Description 05/09/2024 10:00 AM CDT Office Visit [facility] [address] [facility] [place] [address] [place] [address] [address] [address] documented as of this encounter Visit Diagnoses Not on filedocumented in this encounter Additional Health Concerns Infection Onset Date Last Indicated Resolved Time Rule Out COVID-19 10/27/2022 10/27/2022 10/27/2022 3:19 AM WOOD BARREL RECONDITIONER Influenza 10/27/2022 10/27/2022 11/03/2022 11:4 0 PM WOOD BARREL RECONDITIONER Rule Out COVID-19 01/04/2023 01/04/2023 01/04/2023 8:32 PM WOOD BARREL RECONDITIONER Rule Out C-difficile 01/04/2023 01/04/2023 023 1:46 AM WOOD BARREL RECONDITIONER Rule Out C-difficile 01/07/2023 01/07/2023 023 8:18 PM WOOD BARREL RECONDITIONER Rule Out C-difficile 06/04/2023 06/04/2023 023 11:28 AM CDT Rule Out Eleonora auris 06/04/2023 06/04/202306/07 9:24 AM CDT 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 03/08/2024 Rule Out COVID-19 11/10/2023 11/10/2023 11/10/2023 7:17 PM WOOD BARREL RECONDITIONER Rule Out COVID-19 01/18/2024 01/18/2024 01/18/2024 8:53 PM WOOD BARREL RECONDITIONER Rule Out COVID-19 01/28/2024 01/28/2024 01/28/2024 10:22 PM WOOD BARREL RECONDITIONER Rule Out COVID-19 02/17/2024 02/17/2024 02/17/2024 5:07 PM CDT Assessment Noted Time PHQ-9 Depression Total Score: 1 08/16/20 18 4:58 PM CDT documented as of this encounter Care Teams Pipe Finishing Supervisor Relationship Specialty Start [place] [address] [place] [address] PCP - General Family Medicine 08/17/21 10/26/22 [place] [address] [place] [address] PCP - General Family Medicine 10/27/22 10/27/22 No Ref-Primary, Physician PCP - General 11/06/22 04/21/23 [place] [address] [place] [address] PCP - General Family Medicine 04/22/23 [place] [address] [place] [address] Assigned PCP 05/04/21 01/17/22 Sandy Cox APRN CNP [address] [place] [address] Assigned Heart and Vascular Provider 10/05/21 09/04/22 [place] [address] [place] [address] Assigned PCP 01/18/22 10/30/22 Sienna Guillermo DO [address] [place] [address] Assigned Heart and Vascular Provider 09/05/22 03/12/23 Mai Urena PA-C [address] [place] [address] Assigned PCP 10/31/22 01/22/23 [place] [address] [address] [place] [address] Assigned Pain Medication Provider 12/07/22 [place] [address] [address] [place] [address] Assigned PCP 01/23/23 [place] [address] [place] [address] Assigned Musculoskeletal Provider 01/23/23 Amy Montes De Oca RN Clinic Nanotechnician 05/13/2305/17 Gregorio Dalton PA-C [address] [address] Assigned Surgical Provider 05/22/23 Kingsley Garcia MD [address] [place] [address] Assigned Heart and Vascular Provider 08/07/23 [place] [address] [address] [address] Family Medicine 09/10/23 Master Shea PA-C [address] [place] [place] [address] Physician Rounding Machine Tender Gastroenterology 09/10/23 Allyssa Justice MD [facility] [address] [place] [address] Hematology & Oncology 12/10/23 Genaro Christian MD [address] [place], [place] [address] Cardiovascular Disease 12/22/23 Master Shea PA-C [address] [place] [address] Assigned Gastroenterology Provider 12/23/23 Sienna Guillermo DO [address] [place] [address] Physician Cardiovascular Disease 01/18/24 Allyssa Justice MD [facility] [address] [place] [address] Assigned Cancer Care Provider 03/21/24 documented as of this encounter
--- OUTSIDE RECORDS SUMMARY | 2024-03-25 18:23 | XMS_ITS | Encounter Summary ---
Author Name Unknown Organization [place] Address [address] [place] [address] Care Team Providers Care Sheet Metal Layout Mechanic Name Role Phone Sienna Guillermo DO Unavailable [phone] No Ref-Primary, Physician Primary Care Provider Mai Urena-C Unavailable [phone] Segundo Mcclelland MD Unavailable +[phone] Segundo Mcclelland MD Unavailable +[phone] Qamar Jackson MD Unavailable Segundo Mcclelland MD Primary Care Provider + Amy Montes De Oca RN Unavailable +[phone] Gregorio Dalton-C Unavailable +[phone] Kingsley Garcia MD Unavailable + [phone] Segundo Mcclelland MD Unavailable +[phone] Master Shea-C Unavailable Allyssa Justice MD Unavailable Genaro Christian MD Unavailable [phone] Master Shea-C Unavailable Sienna Guillermo DO Unavailable +[phone] Allyssa Justice MD Unavailable [phone] Encounter Details Date Type Department Care Team (Late st Contact Info) Description 01/04/2023 MyC Medical Advice [facility] [address] [place] [phone] Cherise Luong Social History Tobacco Use Types Packs/Day Years [...] suspected to have Coronavirus/COVID-19? No / Unsure 01/07/2023 11:17 AM PROVIDER NETWORK ANALYST documented as of this encounter Plan of Treatment Upcoming Encounters Date Type Department Care Team (Late st Contact Info) Description 05/09/2024 10:00 AM CDT Office Visit [facility] [address] [place] [address] [place] [address] [place] [address] documented as of this encounter Visit Diagnoses Not on filedocumented in this encounter Additional Health Concerns Infection Onset Date Last Indicated Resolved Time Rule Out COVID-19 01/04/2023 01/04/2023 01/04/2023 8:32 PM PROVIDER NETWORK ANALYST Rule Out C-difficile 01/04/2023 01/04/2023 023 1:46 AM PROVIDER NETWORK ANALYST Rule Out C-difficile 01/07/2023 01/07/2023 023 8:18 PM PROVIDER NETWORK ANALYST Rule Out C-difficile 06/04/2023 06/04/2023 023 11:28 AM CDT Rule Out Eleonora auris 06/04/2023 06/04/202306/07 9:24 AM CDT 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 03/08/2024 Rule Out COVID-19 11/10/2023 11/10/2023 11/10/2023 7:17 PM PROVIDER NETWORK ANALYST Rule Out COVID-19 01/18/2024 01/18/2024 01/18/2024 8:53 PM PROVIDER NETWORK ANALYST Rule Out COVID-19 01/28/2024 01/28/2024 01/28/2024 10:22 PM PROVIDER NETWORK ANALYST Rule Out COVID-19 02/17/2024 02/17/2024 02/17/2024 5:07 PM CDT Assessment Noted Time PHQ-9 Depression Total Score: 6 01/01/20 9:53 AM PROVIDER NETWORK ANALYST documented as of this encounter Care Teams Sheet Metal Layout Mechanic Relationship Specialty Start Date End Date No Ref-Primary, Physician PCP - General 11/06/22 04/21/23 [place] [address] [address] [address] PCP - General Family Medicine 04/22/23 Sienna Guillermo DO [address] [place] [address] Assigned Heart and Vascular Provider 09/05/22 03/12/23 Mai Urena PA-C [address] [address] Assigned PCP 10/31/22 01/22/23 [place] [address] [address] [address] Assigned Pain Medication Provider 12/07/22 [place] [address] [address] [place] 3368368 Assigned PCP 01/23/23 [place] [address] [place] [address] Assigned Musculoskeletal Provider 01/23/23 Amy Montes De Oca, RN Clinic Mold Stamper And Repairer 05/13/2305/17 Gregorio Dalton PA-C [address] [address] Assigned Surgical Provider 05/22/23 Kingsley Garcia MD [address] [place] [address] Assigned Heart and Vascular Provider 08/07/23 [place] [address] [place] [address] Family Medicine 09/10/23 Master Shea PA-C [address] [place] [address] Physician Frame Expander Gastroenterology 09/10/23 Allyssa Justice MD [facility] [address] [place] [address] Hematology & Oncology 12/10/23 Genaro Christian MD [address] [place], [place] [address] Cardiovascular Disease 12/22/23 Master Shea PA-C [address] [address] Assigned Gastroenterology Provider 12/23/23 Sienna Guillermo DO [address] [place] [place] [address] Physician Cardiovascular Disease 01/18/24 Allyssa Justice MD [facility] [address] [place] [address] Assigned Cancer Care Provider 03/21/24 documented as of this encounter
--- OUTSIDE RECORDS SUMMARY | 2024-03-25 18:23 | XMS_ITS | Encounter Summary ---
Author Name Unknown Organization [facility] Address [address] [place] [address] Care Team Providers Care Stockkeeper Name Role Phone Sienna Guillermo DO Unavailable [phone] No Ref-Primary, Physician Primary Care Provider Mai Urena-C Unavailable [phone] Segundo Mcclelland MD Unavailable +[phone] Segundo Mcclelland MD Unavailable +[phone] Qamar Jackson MD Unavailable Segundo Mcclelland MD Primary Care Provider + Amy Montes De Oca RN Unavailable +[phone] Gregorio Dalton-C Unavailable +[phone] Kingsley Garcia MD Unavailable + [phone] Segundo Mcclelland MD Unavailable +[phone] Master Shea-C Unavailable Allyssa Justice MD Unavailable [phone] Genaro Christian MD Unavailable +[phone] Master Shea-C Unavailable Sienna Guillermo DO Unavailable +[phone] Allyssa Justice MD Unavailable [phone] Reason for Visit * Reason Onset Date Comments Prior Auth - Medication 01/02/2023 Semaglut yury, 1 MG/DOSE, (OZEMPIC) 4 MG/3ML pen - EPA DENIED Encounter Details Date Type Department Care Team (Late Contact Info) Description 01/02/2023 Telephone [facility] [address] [place] [address] [place] [address] [place] [address] Prior Auth - Medication (Semaglutide, 1 MG/DOSE, (OZEMPIC) 4 MG/3ML pen - EPA DENIED ) Social History Tobacco Use Types Packs/Day [...] Coronavirus/COVID-19? No / Unsure 01/04/2023 3:15 PM BLAST FURNACE KEEPER HELPER documented as of this encounter Miscellaneous Notes * Telephone Encounter - Zac Schaffer - 01/02/2023 10:51 AM CST Images from the original note were not included. Central Prior Authorization Team PRIOR AUTHORIZATION DENIED Medication: Semaglutide, 1 MG/DOSE, (OZEMPIC) 4 MG/3ML pen - EPA DENIED Denial Date: 01/01/2023 Denial Rational: Appeal Information: T FURNACE KEEPER HELPER documented in this encounter Plan of Treatment Upcoming Encounters Date Type Department Care Team (Late Contact Info) Description 05/09/2024 10:00 AM CDT Office Visit [facility] [place] [address] [address] [place] [address] [address] [id number] documented as of this encounter Visit Diagnoses Not on filedocumented in this encounter Additional Health Concerns Infection Onset Date Last Indicated Resolved Time Rule Out COVID-19 01/04/2023 01/04/2023 01/04/2023 8:32 PM BLAST FURNACE KEEPER HELPER Rule Out C-difficile 01/04/2023 01/04/2023 023 1:46 AM BLAST FURNACE KEEPER HELPER Rule Out C-difficile 01/07/2023 01/07/2023 023 8:18 PM BLAST FURNACE KEEPER HELPER Rule Out C-difficile 06/04/2023 06/04/2023 023 11:28 AM CDT Rule Out Eleonora auris 06/04/2023 06/04/202306/07 9:24 AM CDT 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 03/08/2024 Rule Out COVID-19 11/10/2023 11/10/2023 11/10/2023 7:17 PM BLAST FURNACE KEEPER HELPER Rule Out COVID-19 01/18/2024 01/18/2024 01/18/2024 8:53 PM BLAST FURNACE KEEPER HELPER Rule Out COVID-19 01/28/2024 01/28/2024 01/28/2024 10:22 PM BLAST FURNACE KEEPER HELPER Rule Out COVID-19 02/17/2024 02/17/2024 02/17/2024 5:07 PM CDT Assessment Noted Time PHQ-9 Depression Total Score: 6 01/01/20 9:53 AM BLAST FURNACE KEEPER HELPER documented as of this encounter Care Teams Stockkeeper Relationship Specialty Start Date End Date No Ref-Primary, Physician PCP - General 11/06/22 04/21/23 [place] [address] [id number] PCP - General Family Medicine 04/22/23 Mima Sienna FinleyDO [address] [place] [address] Assigned Heart and Vascular Provider 09/05/22 03/12/23 Mai Urena PA-C [address] [place] [address] Assigned PCP 10/31/22 01/22/23 [place] [address] [place] [address] Assigned Pain Medication Provider 12/07/22 [place] [address] [place] [address] Assigned PCP 01/23/23 [place] [address] [place] [address] Assigned Musculoskeletal Provider 01/23/23 Amy Montes De Oca RN Clinic Catcher Filter Tip 05/13/2305/17 Gregorio Dalton PA-C [address] [place] [address] Assigned Surgical Provider 05/22/23 Kingsley Garcia MD [address] [place] [address] Assigned Heart and Vascular Provider 08/07/23 [place] [address] [place] [address] Family Medicine 09/10/23 Master Shea PA-C [address] [place] [address] Physician Key Holder Gastroenterology 09/10/23 Allyssa Justice MD [facility] [address] [place] [address] Hematology & Oncology 12/10/23 Genaro Christian MD [address] [place] [address] 696015 Cardiovascular Disease 12/22/23 Master Shea PA-C [address] [place] [address] [place] [address] Assigned Gastroenterology Provider 12/23/23 Sienna Guillermo DO [address] [place] [address] Physician Cardiovascular Disease 01/18/24 Allyssa Justice MD [facility] [address] [place] [address] Assigned Cancer Care Provider 03/21/24 documented as of this encounter
--- OUTSIDE RECORDS SUMMARY | 2024-03-25 18:23 | XMS_ITS | Encounter Summary ---
Author Name Unknown Organization [place] Address [address] [place] [address] Care Team Providers Care Cement Gun Operator Name Role Phone Sienna Guillermo DO Unavailable [phone] No Ref-Primary, Physician Primary Care Provider Mai Urena-C Unavailable [phone] Segundo Mcclelland MD Unavailable +[phone] Segundo Mcclelland MD Unavailable +[phone] Qamar Jackson MD Unavailable Segundo Mcclelland MD Primary Care Provider + Amy Montes De Oca RN Unavailable +[phone] Gregorio Dalton-C Unavailable +[phone] Kingsley Garcia MD Unavailable + [phone] Segundo Mcclelland MD Unavailable +[phone] Master Shea-C Unavailable Allyssa Justice MD Unavailable [phone] Genaro Christian MD Unavailable [phone] Master Shea-C Unavailable Sienna Guillermo DO Unavailable +[phone] Allyssa Justice MD Unavailable [phone] Reason for Visit * Reason Onset Date Comments Refill Request 11/23/2022 Encounter Details Date Type Department Care Team (Late st Contact Info) Description 11/23/2022 MyC Refill [facility] [place] [address] [place] [phone] [place] [address] [place] [address] Refill Request Social History Tobacco Use Types Packs/Day Years Used Date Smoking Tobacco: Never Smokeless Tobacco: Never Alcohol Use Standard Drinks/Week Comments Yes 0 (1 standard drink = 0.6 oz pur e alcohol) occasional PHQ-2 Answer Date Recorded PHQ-2 Score 2 05/19/2022 Sex and Gender Information Value Date Recorded Sex Assigned at Female 05/26/2021 10:37 AM CDT Gender Identity Female 05/26/2021 10:37 AM CDT Sexual Orientation Straight 05/26/2021 10 :37 AM CDT documented as of this encounter Miscellaneous Notes * Telephone Encounter - Miguel López RN - 11/24/2022 1:59 PM HEALTH OUTREACH WORKER Duplicate. Miguel López RN on 11/24/2022 at 1:59 PM TH OUTREACH WORKER documented in this encounter Plan of Treatment Upcoming Encounters Date Type Department Care Team (Late st Contact Info) Description 05/09/2024 10:00 AM CDT Office Visit [facility] [place] [address] [place] [phone] [place] [address] [address] documented as of this encounter Visit Diagnoses Diagnosis Dental infection Acute apical periodontitis of pulpal origin documented in this encounter Additional Health Concerns Infection Onset Date Last Indicated Resolved Time Rule Out COVID-19 01/04/2023 01/04/2023 01/04/2023 8:32 PM HEALTH OUTREACH WORKER Rule Out C-difficile 01/04/2023 01/04/2023 023 1:46 AM HEALTH OUTREACH WORKER Rule Out C-difficile 01/07/2023 01/07/2023 023 8:18 PM HEALTH OUTREACH WORKER Rule Out C-difficile 06/04/2023 06/04/2023 023 11:28 AM CDT Rule Out Eleonora auris 06/04/2023 06/04/202306/07 9:24 AM CDT 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 03/08/2024 Rule Out COVID-19 11/10/2023 11/10/2023 11/10/2023 7:17 PM HEALTH OUTREACH WORKER Rule Out COVID-19 01/18/2024 01/18/2024 01/18/2024 8:53 PM HEALTH OUTREACH WORKER Rule Out COVID-19 01/28/2024 01/28/2024 01/28/2024 10:22 PM HEALTH OUTREACH WORKER Rule Out COVID-19 02/17/2024 02/17/2024 02/17/2024 5:07 PM CDT Assessment Noted Time PHQ-9 Depression Total Score: 7 05/19/20 10:06 AM CDT documented as of this encounter Care Teams Cement Gun Operator Relationship Specialty Start Date End Date No Ref-Primary, Physician PCP - General 11/06/22 04/21/23 [place] [address] [address] [address] PCP - General Family Medicine 04/22/23 Sienna Guillermo DO [address] [place] [address] Assigned Heart and Vascular Provider 09/05/22 03/12/23 Mai Urena PAAbyC [address] [address] Assigned PCP 10/31/22 01/22/23 [place] [address] [place] [address] Assigned Pain Medication Provider 12/07/22 [place] [address] [place] [address] Assigned PCP 01/23/23 [place] [address] [place] [address] Assigned Musculoskeletal Provider 01/23/23 Amy Montes De Oca, RN Clinic Customer Service Clerk 05/13/2305/17 Gregorio Dalton PA-C [address] [place] [address] Assigned Surgical Provider 05/22/23 Kingsley Garcia MD [address] [place] [address] Assigned Heart and Vascular Provider 08/07/23 [place] [address] [address] Family Medicine 09/10/23 Master Shea PA-C [address] [place] [address] Physician Wood Pole Treater Gastroenterology 09/10/23 Allyssa Justice MD [facility] [address] [place] [place] [address] Hematology & Oncology 12/10/23 Genaro Christian MD [address] [place] [address] Cardiovascular Disease 12/22/23 Master Shea PA-C [address] [facility] [place] [address] Assigned Gastroenterology Provider 12/23/23 iSenna Guillermo DO [address] [address] Physician Cardiovascular Disease 01/18/24 Allyssa Justice MD [facility] [address] [place] [address] Assigned Cancer Care Provider 03/21/24 documented as of this encounter
--- OUTSIDE RECORDS SUMMARY | 2024-03-25 18:23 | XMS_ITS | Encounter Summary ---
Author Name Unknown Organization [facility] Address [facility] [place] [address] Care Team Providers Care Marketing Manager Name Role Phone Segundo Mcclelland MD Unavailable [phone] Segundo Mcclelland MD Unavailable [phone] Qamar Jackson MD Unavailable Segundo Mcclelland MD Primary Care Provider + Amy Montes De Oca RN Unavailable +[phone] Gregorio Dalton-C Unavailable +[phone] Kingsley Garcia MD Unavailable + [phone] Segundo Mcclelland MD Unavailable +[phone] Master Shea PA-C Unavailable Allyssa Justice MD Unavailable [phone] Genaro Christian MD Unavailable + [phone] Master Shea PA-C Unavailable Sienna Guillermo DO Unavailable +[phone] Allyssa Justice MD Unavailable [phone] Encounter Details Date Type Department Care Team (Late st Contact Info) Description 05/13/2023 [facility] [address] [address] [place] [address] [place] [address] Social History Tobacco Use Types Packs/Day Years [...] * Telephone Encounter - Heidi Gan - 05/13/2023 2:58 PM CDT Scheduled patient for a video visit tomorrow, 05/13. Heidi Gan Yard Goods Salesperson * Telephone Encounter - Segundo Mcclelland MD - 05/13/2023 2:49 PM CDT OK to use KIMO, OK to have video * Telephone Encounter - Heidi Gan - 05/13/2023 1:20 PM CDT Ok to use KIMO or Same Day tomorrow? Heidi Gan Yard Goods Salesperson * Telephone Encounter - Nimo Alicia RN - 05/13/2023 1:16 PM CDT Patient needs hospital follow up visit veronica. Preferably tomorrow. Routing to TC Team to call patient veronica to get an appointment. documented in this encounter Plan of Treatment Upcoming Encounters Date Type Department Care Team (Late st Contact Info) Description 05/09/2024 10:00 AM CDT Office Visit [facility] [place] [address] [address] [place] [address] [id number] documented as of this encounter Visit Diagnoses Not on filedocumented in this encounter Additional Health Concerns Infection Onset Date Last Indicated Resolved Time Rule Out C-difficile 06/04/2023 06/04/2023 023 11:28 AM CDT Rule Out Eleonora auris 06/04/2023 06/04/202306/07 9:24 AM CDT 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 03/08/2024 Rule Out COVID-19 11/10/2023 11/10/2023 11/10/2023 7:17 PM WINDSHIELD WIPER REPAIRER Rule Out COVID-19 01/18/2024 01/18/2024 01/18/2024 8:53 PM WINDSHIELD WIPER REPAIRER Rule Out COVID-19 01/28/2024 01/28/2024 01/28/2024 10:22 PM WINDSHIELD WIPER REPAIRER Rule Out COVID-19 02/17/2024 02/17/2024 02/17/2024 5:07 PM CDT Assessment Noted Time PHQ-9 Depression Total Score: 6 04/05/20 8:14 AM CDT documented as of this encounter Care Teams Marketing Manager Relationship Specialty Start [place] [address] [address] PCP - General Family Medicine 04/22/23 [place] [address] [address] [address] Assigned Pain Medication Provider 12/07/22 [place] [address] [place] [address] Assigned PCP 01/23/23 [place] [address] [place] [address] Assigned Musculoskeletal Provider 01/23/23 Amy Montes De Oca, RN Clinic Customer Care Consultant 05/13/2305/17 Gregorio Dalton PA-C [address] [place] [address] Assigned Surgical Provider 05/22/23 Kingsley Garcia MD [address] [place] [address] Assigned Heart and Vascular Provider 08/07/23 [place] [address] [address] Family Medicine 09/10/23 Master Shea PA-C [address] [place] [address] Physician Siderographist Gastroenterology 09/10/23 Allyssa Justice MD [facility] [address] [place] [address] Hematology & Oncology 12/10/23 Genaro Christian MD [address] [place] [address] Cardiovascular Disease 12/22/23 Master Shea PA-C [address] [place] [address] Assigned Gastroenterology Provider 12/23/23 Sienna Guillermo DO [address] [place] [address] Physician Cardiovascular Disease 01/18/24 Allyssa Justice MD [facility] [address] [address] Assigned Cancer Care Provider 03/21/24 documented as of this encounter
--- OUTSIDE RECORDS SUMMARY | 2024-03-25 18:23 | XMS_ITS | Encounter Summary ---
Author Name Unknown Organization [facility] Address [address] [place] [address] Care Team Providers Care Mapping Specialist Name Role Phone Segundo Mcclelland MD Unavailable + [phone] Segundo Mcclelland MD Primary Care Provider + Sandy Cox APRN, CNP Unavailable + Segundo Mcclelland MD Unavailable + [phone] Sienna Guillermo DO Unavailable +[phone] Malia Dhillon MD Primary Care Provider [phone] Ref-Primary, Physician Primary Care Provider Mai Urena PA-C Unavailable + [phone] Segundo Mcclelland MD Unavailable + [phone] Segundo Mcclelland MD Unavailable + [phone] Qamar Jackson MD Unavailable Segundo Mcclelland MD Primary Care Provider + Amy Montes De Oca RN Unavailable +[phone] Gregorio Dalton PA-C Unavailable +[phone] Kingsley Garcia MD Unavailable + [phone] Segundo Mcclelland MD Unavailable +[phone] Master Shea PA-C Unavailable Allyssa Justice MD Unavailable [phone] Genaro Christian MD Unavailable +[phone] Master Shea PA-C Unavailable Sienna Guillermo DO Unavailable +[phone] Allyssa Justice MD Unavailable [phone] Encounter Details Date Type Department Care Team (Late st Contact Info) Description 01/08/2022 Documentation Only INTERFACED REPORT Unknown, Provider Social History Tobacco Use Types Packs/Day Years [...] COVID-19? No / Unsure 01/10/2022 2:32 PM STRETCHER AND DRIER documented as of this encounter Plan of Treatment Upcoming Encounters Date Type Department Care Team (Late Contact Info) Description 05/09/2024 10:00 AM CDT Office Visit [facility] [address] [place] [address] [place] [address] [place] [address] documented as of this encounter Visit Diagnoses Not on filedocumented in this encounter Additional Health Concerns Infection Onset Date Last Indicated Resolved Time Rule Out COVID-19 10/27/2022 10/27/2022 10/27/2022 3:19 AM STRETCHER AND DRIER Influenza 10/27/2022 10/27/2022 11/03/2022 11:4 0 PM STRETCHER AND DRIER Rule Out COVID-19 01/04/2023 01/04/2023 01/04/2023 8:32 PM STRETCHER AND DRIER Rule Out C-difficile 01/04/2023 01/04/2023 023 1:46 AM STRETCHER AND DRIER Rule Out C-difficile 01/07/2023 01/07/2023 023 8:18 PM STRETCHER AND DRIER Rule Out C-difficile 06/04/2023 06/04/2023 023 11:28 AM CDT Rule Out Eleonora auris 06/04/2023 06/04/202306/07 9:24 AM CDT 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 03/08/2024 Rule Out COVID-19 11/10/2023 11/10/2023 11/10/2023 7:17 PM STRETCHER AND DRIER Rule Out COVID-19 01/18/2024 01/18/2024 01/18/2024 8:53 PM STRETCHER AND DRIER Rule Out COVID-19 01/28/2024 01/28/2024 01/28/2024 10:22 PM STRETCHER AND DRIER Rule Out COVID-19 02/17/2024 02/17/2024 02/17/2024 5:07 PM CDT Assessment Noted Time PHQ-9 Depression Total Score: 1 08/16/20 18 4:58 PM CDT documented as of this encounter Care Teams Mapping Specialist Relationship Specialty Start [place] [address] [address] PCP - General Family Medicine 08/17/21 10/26/22 [place] [address] [place] [address] PCP - General Family Medicine 10/27/22 10/27/22 No Ref-Primary, Physician PCP - General 11/06/22 04/21/23 [place] [address] [address] PCP - General Family Medicine 04/22/23 [place] [address] [place] [address] Assigned PCP 05/04/21 01/17/22 Sandy Cox APRN [facility]OLOG[facility] L[facility]ER [address] [place] [address] Assigned Heart and Vascular Provider 10/05/21 09/04/22 [place] [address] [place] [address] Assigned PCP 01/18/22 10/30/22 Sienna Guillermo DO [address] [place] [address] Assigned Heart and Vascular Provider 09/05/22 03/12/23 Mai Urena PA-C [address] [place] [address] Assigned PCP 10/31/22 01/22/23 [place] [address] [place] [address] Assigned Pain Medication Provider 12/07/22 [place] [address] [place] [address] Assigned PCP 01/23/23 [place] [address] [place] [address] Assigned Musculoskeletal Provider 01/23/23 Amy Montes De Oca, RN Clinic Tubular Splitting Machine Tender 05/13/2305/17 Gregorio Dalton PA-C [address] 1223[address] Assigned Surgical Provider 05/22/23 Kingsley Garcia MD [address] [place] [address] Assigned Heart and Vascular Provider 08/07/23 [place] [address] [place] [address] Family Medicine 09/10/23 Master Shea PA-C [address] [place] [address] Physician Automotive Machinist Apprentice Gastroenterology 09/10/23 Allyssa Justice MD [facility] [address] [address] Hematology & Oncology 12/10/23 Genaro Christian MD [address] [place], [place] [address] Cardiovascular Disease 12/22/23 Master Shea PA-C [address] [place] [address] Assigned Gastroenterology Provider 12/23/23 Sienna Guillermo DO [address] [place] [address] Physician Cardiovascular Disease 01/18/24 Allyssa Justice MD [facility] [address] [address] Assigned Cancer Care Provider 03/21/24 documented as of this encounter
--- OUTSIDE RECORDS SUMMARY | 2024-03-25 18:23 | XMS_ITS | Encounter Summary ---
Author Name Unknown Organization [facility] Address [address] [place] [address] Care Team Providers Care Geoscience Technician Name Role Phone Sienna Guillermo DO Unavailable [phone] No Ref-Primary, Physician Primary Care Provider Segundo Mcclelland MD Unavailable +[phone] Segundo Mcclelland MD Unavailable + [phone] Qamar Jackson MD Unavailable Segundo Mcclelland MD Primary Care Provider + Aym Montes De Oca RN Unavailable +[phone] Gregorio DaltonC Unavailable +[phone] Kingsley Garcia MD Unavailable + [phone] Segundo Mcclelland MD Unavailable + [phone] Master Shea PA-C Unavailable Allyssa Justice MD Unavailable [phone] Genaro Christian MD Unavailable + [address] Master Shea PA-C Unavailable Sienna Guillermo DO Unavailable +[phone] Allyssa Justice MD Unavailable [phone] Encounter Details Date Type Department Care Team (Late st Contact Info) Description 02/26/2023 MyC Medical Advice [facility] [place] [address] [place] [address] [place] [address] [place] [address] Social History Tobacco Use Types Packs/Day Years [...] suspected to have Coronavirus/COVID-19? No / Unsure 03/01/2023 8:44 AM CDT documented as of this encounter Plan of Treatment Upcoming Encounters Date Type Department Care Team (Late Contact Info) Description 05/09/2024 10:00 AM CDT Office Visit [facility] [address] [place] [address] [place] [address] [place] [address] documented as of this encounter Visit Diagnoses Not on filedocumented in this encounter Additional Health Concerns Infection Onset Date Last Indicated Resolved Time Rule Out C-difficile 06/04/2023 06/04/2023 023 11:28 AM CDT Rule Out Eleonora auris 06/04/2023 06/04/202306/07 9:24 AM CDT 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 03/08/2024 Rule Out COVID-19 11/10/2023 11/10/2023 11/10/2023 7:17 PM INGOT CAR OPERATOR Rule Out COVID-19 01/18/2024 01/18/2024 01/18/2024 8:53 PM INGOT CAR OPERATOR Rule Out COVID-19 01/28/2024 01/28/2024 01/28/2024 10:22 PM INGOT CAR OPERATOR Rule Out COVID-19 02/17/2024 02/17/2024 02/17/2024 5:07 PM CDT Assessment Noted Time PHQ-9 Depression Total Score: 6 01/01/20 9:53 AM INGOT CAR OPERATOR documented as of this encounter Care Teams Geoscience Technician Relationship Specialty Start Date End Date No Ref-Primary, Physician PCP - General 11/06/22 04/21/23 [place] [address] [address] PCP - General Family Medicine 04/22/23 Sienna Guillermo DO [address] [place] [address] Assigned Heart and Vascular Provider 09/05/22 03/12/23 [place] [address] [address] Assigned Pain Medication Provider 12/07/22 [place] [address] [address] [address] Assigned PCP 01/23/23 [place] [address] [address] [place] [address] Assigned Musculoskeletal Provider 01/23/23 Amy Montes De Oca, RN Clinic Pressroom Supervisor 05/13/2305/17 Gregorio Dalton PA-C [address] [place] [address] Assigned Surgical Provider 05/22/23 Kingsley Garcia MD [address] [place] [address] Assigned Heart and Vascular Provider 08/07/23 [place] [address] [place] [address] Family Medicine 09/10/23 Master Shea PA-C [address] [place] [address] Physician Production Repairer Gastroenterology 09/10/23 Allyssa Justice MD [facility] [address] [place], [place] [address] Hematology & Oncology 12/10/23 Genaro Christian MD 6 [place], [place] [address] Cardiovascular Disease 12/22/23 Master Shea PA-C [address] [place] [address] Assigned Gastroenterology Provider 12/23/23 Sienna Guillermo DO [address] [place] [address] Physician Cardiovascular Disease 01/18/24 Allyssa Justice MD [facility] [address] [place] [address] Assigned Cancer Care Provider 03/21/24 documented as of this encounter
--- OUTSIDE RECORDS SUMMARY | 2024-03-25 18:23 | XMS_ITS | Encounter Summary ---
Author Name Unknown Organization [facility] Address [address] [place] [address] Care Team Providers Care Conveyor Feeder Name Role Phone No Ref-Primary, Physician Primary Care Provider Segundo Mcclelland MD Unavailable +[phone] Segundo Mcclelland MD Unavailable +[phone] Qamar Jacksno MD Unavailable Segundo Mcclelland MD Primary Care Provider + Amy Montes De Oca RN Unavailable +[phone] Gregorio Dalton PA-C Unavailable +[phone] Kingsley Garcia MD Unavailable + [phone] Segundo Mcclelland MD Unavailable +[phone] Master Shea PA-C Unavailable Allyssa Justice MD Unavailable [phone] Genaro Christian MD Unavailable + [phone] Master Shea PA-C Unavailable Sienna Guillermo DO Unavailable +[phone] Allyssa Justice MD Unavailable [phone] Encounter Details Date Type Department Care Team (Late st Contact Info) Description 03/27/2023 [facility] [address] [place] [address] [place] [address] [place] [address] Acute bilateral knee pain (Primary Dx); Primary osteoarthritis of left knee; Primary osteoarthritis of right knee; Injury of medial collateral ligament (MCL) of knee; Injury of left knee, initial encounter Social History Tobacco Use Types Packs/Day [...] suspected to have Coronavirus/COVID-19? No / Unsure 03/30/2023 10:33 PM CDT documented as of this encounter Miscellaneous Notes * Telephone Encounter - Uyen García ATC - 03/29/2023 9:49 AM CDT Patient was last seen on 03/01/23 and had US guided bilateral knee cortisone injections. Patient reports minimal relief from CSI. Patient had MRI bilateral knees 02/10/23. Patient was given Rx for Oxycodone on 03/09/[address] Mcclelland. Patient has completed 2 sessions of PT. Plan per YIN with Dr. Jackson on 03/01/23: -Patient will start physical therapy in 1 to 2 weeks -Patient will follow up if pain does not improve Please see patient's mychart message and advise. Order for knee bracing pending if appropriate. Uyen García MBA, ATC documented in this encounter Plan of Treatment Upcoming Encounters Date Type Department Care Team (Late st Contact Info) Description 05/09/2024 10:00 AM CDT Office Visit [facility] [place] [address] [place] [address] [place] [address] [place] [address] documented as of this encounter Visit Diagnoses Diagnosis Acute bilateral knee pain- Primary Primary osteoarthritis of left knee Primary localized osteoarthrosis, lower leg Primary osteoarthritis of right knee Primary localized osteoarthrosis, lower leg Injury of medial collateral ligament (MCL) of knee Injury of left knee, initial encounter documented in this encounter Additional Health Concerns Infection Onset Date Last Indicated Resolved Time Rule Out C-difficile 06/04/2023 06/04/2023 023 11:28 AM CDT Rule Out Eleonora auris 06/04/2023 06/04/202306/07 9:24 AM CDT 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 03/08/2024 Rule Out COVID-19 11/10/2023 11/10/2023 11/10/2023 7:17 PM UTILITY SALES AND SERVICE MANAGER Rule Out COVID-19 01/18/2024 01/18/2024 01/18/2024 8:53 PM UTILITY SALES AND SERVICE MANAGER Rule Out COVID-19 01/28/2024 01/28/2024 01/28/2024 10:22 PM UTILITY SALES AND SERVICE MANAGER Rule Out COVID-19 02/17/2024 02/17/2024 02/17/2024 5:07 PM CDT Assessment Noted Time PHQ-9 Depression Total Score: 6 01/01/20 9:53 AM UTILITY SALES AND SERVICE MANAGER documented as of this encounter Care Teams Conveyor Feeder Relationship Specialty Start Date End Date No Ref-Primary, Physician PCP - General 11/06/22 04/21/23 [place] [address] [place] [address] PCP - General Family Medicine 04/22/23 [place] [address] [place] [address] Assigned Pain Medication Provider 12/07/22 [place] [address] [place] [address] Assigned PCP 01/23/23 [place] [address] [place] [address] Assigned Musculoskeletal Provider 01/23/23 Amy Montes De Oca, RN Clinic Claims Support Specialist 05/13/2305/17 Gregorio Dalton PA-C [address] [place] [address] Assigned Surgical Provider 05/22/23 Kingsley Garcia MD [address] [place] [address] Assigned Heart and Vascular Provider 08/07/23 [place] [address] [place] [address] Family Medicine 09/10/23 Master Shea PA-C [address] [place] [address] Physician Log [facility]oper Gastroenterology 09/10/23 Allyssa Justice MD [facility] [address] [place] [address] Hematology & Oncology 12/10/23 Genaro Christian MD 6 [place], [place] 9325[address] Cardiovascular Disease 12/22/23 Master Shea PA-C [address] [place] [address] Assigned Gastroenterology Provider 12/23/23 Sienna Guillermo DO [address] [place] [address]38[address] Physician Cardiovascular Disease 01/18/24 Allyssa Justice MD [facility] [address] [place] [address] Assigned Cancer Care Provider 03/21/24 documented as of this encounter
--- OUTSIDE RECORDS SUMMARY | 2024-03-25 18:23 | XMS_ITS | Encounter Summary ---
Author Name Unknown Organization [facility] Address [address] [place] [address] Care Team Providers Care Mine Equipment Design Engineer Name Role Phone Sienna Guillermo DO Unavailable [phone] No Ref-Primary, Physician Primary Care Provider Segundo Mcclelland MD Unavailable +[phone] Segundo Mcclelland MD Unavailable + [phone] Qamar Jackson MD Unavailable Segundo Mcclelland MD Primary Care Provider + Amy Montes De Oca RN Unavailable +[phone] Gregorio DalotnC Unavailable +[phone] Kingsley Garcia MD Unavailable + [phone] Segundo Mcclelland MD Unavailable [phone] Master Shea PA-C Unavailable Allyssa Justice MD Unavailable [phone] Genaro Christian MD Unavailable + [phone] Master Shea PA-C Unavailable Sienna Guillermo DO Unavailable +[phone] Allyssa Justice MD Unavailable [phone] Encounter Details Date Type Department Care Team (Late st Contact Info) Description 02/11/2023 MyC Medical Advice [facility] [place] [address] [place] [address] [place] [address] [place] [address] Acute bilateral knee pain (Primary Dx) Social History Tobacco Use Types [...] was confirmed or suspected to have Coronavirus/COVID-19? Unable to assess 02/11/2023 12:41 AM CDT documented as of this encounter Plan of Treatment Upcoming Encounters Date Type Department Care Team (Late Contact Info) Description 05/09/2024 10:00 AM CDT Office Visit [facility] [address] [place] [address] [place] [address] [place] [address] documented as of this encounter Visit Diagnoses Diagnosis Acute bilateral knee pain- Primary documented in this encounter Additional Health Concerns Infection Onset Date Last Indicated Resolved Time Rule Out C-difficile 06/04/2023 06/04/2023 023 11:28 AM CDT Rule Out Eleonora auris 06/04/2023 06/04/202306/07 9:24 AM CDT 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 03/08/2024 Rule Out COVID-19 11/10/2023 11/10/2023 11/10/2023 7:17 PM CASE THERAPIST Rule Out COVID-19 01/18/2024 01/18/2024 01/18/2024 8:53 PM CASE THERAPIST Rule Out COVID-19 01/28/2024 01/28/2024 01/28/2024 10:22 PM CASE THERAPIST Rule Out COVID-19 02/17/2024 02/17/2024 02/17/2024 5:07 PM CDT Assessment Noted Time PHQ-9 Depression Total Score: 6 01/01/20 9:53 AM CASE THERAPIST documented as of this encounter Care Teams Mine Equipment Design Engineer Relationship Specialty Start Date End Date No Ref-Primary, Physician PCP - General 11/06/22 04/21/23 [place] [address] [address] PCP - General Family Medicine 04/22/23 Sienna Guillermo DO [address] [place] [address] Assigned Heart and Vascular Provider 09/05/22 03/12/23 [place] [address] [address] [address] Assigned Pain Medication Provider 12/07/22 [place] [address] [address] Assigned PCP 01/23/23 [place] [address] [place] [address] Assigned Musculoskeletal Provider 01/23/23 Amy Montes De Oca RN Clinic Registration Rep 05/13/2305/17 Gregorio Dalton PA-C [address] [place] [address] Assigned Surgical Provider 05/22/23 Kingsley Garcia MD [address] [place] [address] Assigned Heart and Vascular Provider 08/07/23 [place] [address] [place] [address] Family Medicine 09/10/23 Master Shea PA-C [address] [place] [place] [address] Physician Back Line Cook Gastroenterology 09/10/23 Allyssa Justice MD [facility] [address] [place] [address] Hematology & Oncology 12/10/23 Genaro Christian MD [address] [place], [place] 5337[address] MD Cardiovascular Disease 12/22/23 Master Shea PA-C [address] [place] [address] Assigned Gastroenterology Provider 12/23/23 Sienna Guillermo DO [address] [place] [address] Physician Cardiovascular Disease 01/18/24 Allyssa Justice MD [facility] [address] [place] [address] Assigned Cancer Care Provider 03/21/24 documented as of this encounter
--- OUTSIDE RECORDS SUMMARY | 2024-03-25 18:23 | XMS_ITS | Encounter Summary ---
Author Name Unknown Organization [facility] Address [address] [place] [address] Care Team Providers Care Vacuum Evaporation Operator Name Role Phone Sienna Guillermo DO Unavailable [phone] No Ref-Primary, Physician Primary Care Provider Mai Urena-C Unavailable [phone] Segundo Mcclelland MD Unavailable +[phone] Segundo Mcclelland MD Unavailable +[phone] Qamar Jackson MD Unavailable Segundo Mcclelland MD Primary Care Provider + Amy Montes De Oca RN Unavailable +[phone] Gregorio Dalton-C Unavailable +[phone] Kingsley Garcia MD Unavailable + [phone] Segundo Mcclelland MD Unavailable +[phone] Master Shea-C Unavailable Allyssa Justice MD Unavailable [phone] Genaro Christian MD Unavailable [phone] Master Shea-C Unavailable Sienna Guillermo DO Unavailable +[phone] Allyssa Justice MD Unavailable [phone] Encounter Details Date Type Department Care Team (Late st Contact Info) Description 01/17/2023 MyC Medical Advice [facility] [address] [facility] [address] [place] [address] [place] [address] [place] [address] Injury of left knee, initial encounter (Primary Dx); Injury of medial collateral ligament (MCL) of knee; Injury of right knee, initial encounter Social History Tobacco Use [...] suspected to have Coronavirus/COVID-19? No / Unsure 01/15/2023 2:18 PM PLATE FILLER documented as of this encounter Miscellaneous Notes * Telephone Encounter - Verito Newberry MD - 01/18/2023 11:42 AM PLATE FILLER Walker order has been signed. Verito John MD, CAQSM [facility] E FILLER documented in this encounter Plan of Treatment Upcoming Encounters Date Type Department Care Team (Late st Contact Info) Description 05/09/2024 10:00 AM CDT Office Visit [facility] [address] [place] [address] [place] [address] [place] [address] documented as of this encounter Visit Diagnoses Diagnosis Injury of left knee, initial encounter- Primary Injury of medial collateral ligament (MCL) of knee Injury of right knee, initial encounter documented in this encounter Additional Health Concerns Infection Onset Date Last Indicated Resolved Time Rule Out C-difficile 06/04/2023 06/04/2023 023 11:28 AM CDT Rule Out Eleonora auris 06/04/2023 06/04/202306/07 9:24 AM CDT 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 03/08/2024 Rule Out COVID-19 11/10/2023 11/10/2023 11/10/2023 7:17 PM PLATE FILLER Rule Out COVID-19 01/18/2024 01/18/2024 01/18/2024 8:53 PM PLATE FILLER Rule Out COVID-19 01/28/2024 01/28/2024 01/28/2024 10:22 PM PLATE FILLER Rule Out COVID-19 02/17/2024 02/17/2024 02/17/2024 5:07 PM CDT Assessment Noted Time PHQ-9 Depression Total Score: 6 01/01/20 9:53 AM PLATE FILLER documented as of this encounter Care Teams Vacuum Evaporation Operator Relationship Specialty Start Date End Date No Ref-Primary, Physician PCP - General 11/06/22 04/21/23 [place] [address] [address] [address] PCP - General Family Medicine 04/22/23 Sienna Guillermo DO [address] [place] [address] Assigned Heart and Vascular Provider 09/05/22 03/12/23 Mai Urena PAAbyC [address] [address] Assigned PCP 10/31/22 01/22/23 [place] [address] [place] [address] Assigned Pain Medication Provider 12/07/22 [place] [address] [place] [address] Assigned PCP 01/23/23 [place] [address] [place] [address] Assigned Musculoskeletal Provider 01/23/23 Amy Montes De Oca RN Clinic Periodicals Clerk 05/13/2305/17 Gregorio Dalton PA-C [address] [place] [address] Assigned Surgical Provider 05/22/23 Kingsley Garcia MD [address] [place] [address] Assigned Heart and Vascular Provider 08/07/23 [place] [address] [place] [address] Family Medicine 09/10/23 Master Shea PA-C [address] [place] [address] Physician Cigar Packing Examiner Gastroenterology 09/10/23 Allyssa Justice MD [facility] [address] [place] [address] Hematology & Oncology 12/10/23 Genaro Christian MD 6 [place] [address] Cardiovascular Disease 12/22/23 Master Shea PA-C [address] [place] [address] Assigned Gastroenterology Provider 12/23/23 Sienna Guillermo DO [address] [place] [address] Physician Cardiovascular Disease 01/18/24 Allyssa Justice MD [facility] [address] [place] [address] Assigned Cancer Care Provider 03/21/24 documented as of this encounter
--- OUTSIDE RECORDS SUMMARY | 2024-03-25 18:23 | XMS_ITS | Encounter Summary ---
Author Name Unknown Organization [facility] Address [address] [place] [address] Care Team Providers Care Kitchen Manager Name Role Phone Sienna Guillermo DO Unavailable [phone] No Ref-Primary, Physician Primary Care Provider Mai Urena-C Unavailable [phone] Segundo Mcclelland MD Unavailable +[phone] Segundo Mcclelland MD Unavailable +[phone] Qamar Jackson MD Unavailable Segundo Mcclelland MD Primary Care Provider + Amy Montes De Oca RN Unavailable +[phone] Gregorio Dalton-C Unavailable +[phone] Kingsley Garcia MD Unavailable + [phone] Segundo Mcclelland MD Unavailable +[phone] Master Shea-C Unavailable Allyssa Justice MD Unavailable [phone] Genaro Christian MD Unavailable [phone] Master Shea-C Unavailable Sienna Guillermo DO Unavailable +[phone] Allyssa Justice MD Unavailable [phone] Reason for Visit * Reason Onset Date Comments Refill Request 11/04/2022 Encounter Details Date Type Department Care Team (Late st Contact Info) Description 11/04/[address] [facility] [address] [place] [address] [place] [address] [place] [address] Refill Request Social History Tobacco Use Types [...] encounter Miscellaneous Notes * Telephone Encounter - Cherise Arredondo RN - 11/04/2022 3:34 PM CST Routing refill request to provider for review/approval because: Drug not on the [facility] refill protocol See Mychart request Cherise Arredondo RN, BSN [facility] ET OPERATOR documented in this encounter Plan of Treatment Upcoming Encounters Date Type Department Care Team (Late Contact Info) Description 05/09/2024 10:00 AM CDT Office Visit [facility] [address] [place] [address] [place] [address] [place] [address] documented as of this encounter Visit Diagnoses Diagnosis Influenza A Influenza with other respiratory manifestations documented in this encounter Additional Health Concerns Infection Onset Date Last Indicated Resolved Time Rule Out COVID-19 01/04/2023 01/04/2023 01/04/2023 8:32 PM POCKET OPERATOR Rule Out C-difficile 01/04/2023 01/04/2023 023 1:46 AM POCKET OPERATOR Rule Out C-difficile 01/07/2023 01/07/2023 023 8:18 PM POCKET OPERATOR Rule Out C-difficile 06/04/2023 06/04/2023 023 11:28 AM CDT Rule Out Eleonora auris 06/04/2023 06/04/202306/07 9:24 AM CDT 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 03/08/2024 Rule Out COVID-19 11/10/2023 11/10/2023 11/10/2023 7:17 PM POCKET OPERATOR Rule Out COVID-19 01/18/2024 01/18/2024 01/18/2024 8:53 PM POCKET OPERATOR Rule Out COVID-19 01/28/2024 01/28/2024 01/28/2024 10:22 PM POCKET OPERATOR Rule Out COVID-19 02/17/2024 02/17/2024 02/17/2024 5:07 PM CDT Assessment Noted Time PHQ-9 Depression Total Score: 7 05/19/20 10:06 AM CDT documented as of this encounter Care Teams Kitchen Manager Relationship Specialty Start Date End Date No Ref-Primary, Physician PCP - General 11/06/22 04/21/23 [place] [address] [address] [id number] PCP - General Family Medicine 04/22/23 Sienna Guillermo DO [address] [place] [address] Assigned Heart and Vascular Provider 09/05/22 03/12/23 Mai Urena PA-C [address] [address] Assigned PCP 10/31/22 01/22/23 [place] [address] [place] [address] Assigned Pain Medication Provider 12/07/22 [place] [address] [place] [address] Assigned PCP 01/23/23 [place] [address] [place] [address] Assigned Musculoskeletal Provider 01/23/23 Amy Montes De Oca RN Clinic Asbestos Cloth Inspector 05/13/2305/17 Gregorio Dalton PA-C [address] [place] [address] Assigned Surgical Provider 05/22/23 Kingsley Garcia MD [address] [place] [address] Assigned Heart and Vascular Provider 08/07/23 [place] [address] [place] [address] Family Medicine 09/10/23 Master Shea PA-C [address] [place] [address] Physician S[employer] Gastroenterology 09/10/23 Allyssa Justice MD [facility] [address] [place] [address] Hematology & Oncology 12/10/23 Genaro Christian MD 6 [place], [place] [address] Cardiovascular Disease 12/22/23 Master Shea PA-C [address] [place] [address] Assigned Gastroenterology Provider 12/23/23 Sienna Guillermo DO [address] [place] [address] Physician Cardiovascular Disease 01/18/24 Allyssa Justice MD [facility] [address] [place] 8289[address] Assigned Cancer Care Provider 03/21/24 documented as of this encounter
--- OUTSIDE RECORDS SUMMARY | 2024-03-25 18:23 | XMS_ITS | Encounter Summary ---
Author Name Unknown Organization [facility] Address [address] [place] [address] Care Team Providers Care Rickshaw Driver Name Role Phone No Ref-Primary, Physician Primary Care Provider Segundo Mcclelland MD Unavailable +[phone] Segundo Mcclelland MD Unavailable +[phone] Qamar Jackson MD Unavailable Segundo Mcclelland MD Primary Care Provider + Amy Montes De Oca RN Unavailable +[phone] Gregorio Dalton PA-C Unavailable +[phone] Kingsley Garcia MD Unavailable + [phone] Segundo Mcclelland MD Unavailable +[phone] Master Shea PA-C Unavailable Allyssa Justice MD Unavailable [phone] Genaro Christian MD Unavailable + [phone] Master Shea PA-C Unavailable Sienna Guillermo DO Unavailable +[phone] Allyssa Justice MD Unavailable [phone] Encounter Details Date Type Department Care Team (Late st Contact Info) Description 04/12/2023 [facility] [place] [address] [facility] [address] [place] [phone] Cherise Luong Social History Tobacco Use Types [...] suspected to have Coronavirus/COVID-19? No / Unsure 04/05/2023 7:57 AM CDT documented as of this encounter Plan of Treatment Upcoming Encounters Date Type Department Care Team (Late st Contact Info) Description 05/09/2024 10:00 AM CDT Office Visit [facility] [address] [place] [phone] [place] [address] [place] [address] documented as of this encounter Visit Diagnoses Not on filedocumented in this encounter Additional Health Concerns Infection Onset Date Last Indicated Resolved Time Rule Out C-difficile 06/04/2023 06/04/2023 023 11:28 AM CDT Rule Out Eleonora auris 06/04/2023 06/04/202306/07 9:24 AM CDT 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 03/08/2024 Rule Out COVID-19 11/10/2023 11/10/2023 11/10/2023 7:17 PM FOOT AND ANKLE SURGEON Rule Out COVID-19 01/18/2024 01/18/2024 01/18/2024 8:53 PM FOOT AND ANKLE SURGEON Rule Out COVID-19 01/28/2024 01/28/2024 01/28/2024 10:22 PM FOOT AND ANKLE SURGEON Rule Out COVID-19 02/17/2024 02/17/2024 02/17/2024 5:07 PM CDT Assessment Noted Time PHQ-9 Depression Total Score: 6 04/05/20 8:14 AM CDT documented as of this encounter Care Teams Rickshaw Driver Relationship Specialty Start Date End Date No Ref-Primary, Physician PCP - General 11/06/22 04/21/23 [place] [address] [address] PCP - General Family Medicine 04/22/23 [place] [address] [address] [address] Assigned Pain Medication Provider 12/07/22 [place] [address] [address] [address] Assigned PCP 01/23/23 [place] [address] [place] [address] Assigned Musculoskeletal Provider 01/23/23 Amy Montes De Oca RN Clinic Nurse Esthetician 05/13/2305/17 Gregorio Dalton PA-C [address] [address] Assigned Surgical Provider 05/22/23 Kingsley Garcia MD [address] [place] [address] Assigned Heart and Vascular Provider 08/07/23 [place] [address] [place] [address] Family Medicine 09/10/23 Master Shea PA-C [address] [place] [address] Physician Feedlot Manager Gastroenterology 09/10/23 Allyssa Justice MD [facility] [address] [place] [address] Hematology & Oncology 12/10/23 Genaro Christian MD [address] [place] [address]47[address] Cardiovascular Disease 12/22/23 Master Shea PA-C [address] [place] [address] Assigned Gastroenterology Provider 12/23/23 Sienna Guillermo DO [address] [place] [address] Physician Cardiovascular Disease 01/18/24 Allyssa Justice MD [facility] [address] [place] [address] Assigned Cancer Care Provider 03/21/24 documented as of this encounter
--- OUTSIDE RECORDS SUMMARY | 2024-03-25 18:23 | XMS_ITS | Encounter Summary ---
Author Name Unknown Organization [facility] Address [address] [place] [address] Care Team Providers Care Actuarial Director Name Role Phone Segundo Mcclelland MD Primary Care Provider + Sandy Cox APRN, CNP Unavailable Segundo Mcclelland MD Unavailable +[phone] Sienna Guillermo DO Unavailable +[phone] Malia Dhillon MD Primary Care Provider +[phone] No Ref-Primary, Physician Primary Care Provider Mai UrenaC Unavailable +[phone] Segundo Mcclelland MD Unavailable +[phone] Segundo Mcclelland MD Unavailable +[phone] Qamar Jackson MD Unavailable Segundo Mcclelland MD Primary Care Provider + Amy Montes De Oca RN Unavailable +[phone] Gregorio Dalton-C Unavailable +[phone] Kingsley Garcia MD Unavailable + [phone] Segundo Mcclelland MD Unavailable +[phone] Master Shea-C Unavailable Allyssa Justice MD Unavailable Genaro Christian MD Unavailable [phone] Master Shea PA-C Unavailable BorisrhonaSienna DO Unavailable +[phone] Allyssa Justice MD Unavailable +[phone] Encounter Details Date Type Department Care Team (Late st Contact Info) Description 05/19/2022 MyC Medical Advice [facility] [address] [place] [phone] Mai Urena PA-C [address] [place] [address] Social History Tobacco Use Types Packs/Day Years [...] encounter Miscellaneous Notes * Telephone Encounter - Malia Torres RN - 05/19/2022 5:09 PM CDT See mychart message below. Routing to provider to review and advise. Malia Torres RN [facility] documented in this encounter Plan of Treatment Upcoming Encounters Date Type Department Care Team (Late Contact Info) Description 05/09/2024 10:00 AM CDT Office Visit [facility] [address] [place] [address] [place] [address] [address] [address] documented as of this encounter Visit Diagnoses Not on filedocumented in this encounter Additional Health Concerns Infection Onset Date Last Indicated Resolved Time Rule Out COVID-19 10/27/2022 10/27/2022 10/27/2022 3:19 AM SHOE REPAIRER HELPER Influenza 10/27/2022 10/27/2022 11/03/2022 11:4 0 PM SHOE REPAIRER HELPER Rule Out COVID-19 01/04/2023 01/04/2023 01/04/2023 8:32 PM SHOE REPAIRER HELPER Rule Out C-difficile 01/04/2023 01/04/2023 023 1:46 AM SHOE REPAIRER HELPER Rule Out C-difficile 01/07/2023 01/07/2023 023 8:18 PM SHOE REPAIRER HELPER Rule Out C-difficile 06/04/2023 06/04/2023 023 11:28 AM CDT Rule Out Eleonora auris 06/04/2023 06/04/202306/07 9:24 AM CDT 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 03/08/2024 Rule Out COVID-19 11/10/2023 11/10/2023 11/10/2023 7:17 PM SHOE REPAIRER HELPER Rule Out COVID-19 01/18/2024 01/18/2024 01/18/2024 8:53 PM SHOE REPAIRER HELPER Rule Out COVID-19 01/28/2024 01/28/2024 01/28/2024 10:22 PM SHOE REPAIRER HELPER Rule Out COVID-19 02/17/2024 02/17/2024 02/17/2024 5:07 PM CDT Assessment Noted Time PHQ-9 Depression Total Score: 7 05/19/20 22 10:06 AM CDT documented as of this encounter Care Teams Actuarial Director Relationship Specialty Start [place] [address] [address] [address] PCP - General Family Medicine 08/17/21 10/26/22 [place] [address] [place] [address] PCP - General Family Medicine 10/27/22 10/27/22 No Ref-Primary, Physician PCP - General 11/06/22 04/21/23 [place] [address] [place] [address] PCP - General Family Medicine 04/22/23 Sandy Cox APRN CNP [address] [place] [address] Assigned Heart and Vascular Provider 10/05/21 09/04/22 [place] [address] [place] [address] Assigned PCP 01/18/22 10/30/22 Sienna Guillermo DO [address] [place] [address] Assigned Heart and Vascular Provider 09/05/22 03/12/23 Mai Urena PA-C [address] [place] [address] Assigned PCP 10/31/22 01/22/23 [place] [address] [address] [address] Assigned Pain Medication Provider 12/07/22 [place] [address] [address] [address] Assigned PCP 01/23/23 [place] [address] [place] [address] Assigned Musculoskeletal Provider 01/23/23 Amy Montes De Oca, RN Clinic Program Manager Rn 05/13/2305/17 Gregorio Dalton PA-C [address] 405685 Assigned Surgical Provider 05/22/23 Kingsley Garcia MD [address] [place] [address] Assigned Heart and Vascular Provider 08/07/23 [place] [address] [place] [address] Family Medicine 09/10/23 Master Shea PA-C [address] [place] [address] Physician Reinforcing Steel Worker Gastroenterology 09/10/23 Allyssa Justice MD [facility] [address] [place] [address] Hematology & Oncology 12/10/23 Genaro Christian MD 6 [place], [place] [address] Cardiovascular Disease 12/22/23 Master Shea PA-C [address] [place] [address] Assigned Gastroenterology Provider 12/23/23 Sienna Guillermo DO [address] [place] [address] Physician Cardiovascular Disease 01/18/24 Allyssa Justice MD [facility] [address] [place] [address] Assigned Cancer Care Provider 03/21/24 documented as of this encounter
--- OUTSIDE RECORDS SUMMARY | 2024-03-25 18:23 | XMS_ITS | Encounter Summary ---
Author Name Unknown Organization [facility] Address [address] [place] [address] Care Team Providers Care Tobacco Weigher Name Role Phone No Ref-Primary, Physician Primary Care Provider Segundo Mcclelland MD Unavailable +[phone] Segundo Mcclelland MD Unavailable +[phone] Qamar Jackson MD Unavailable Segundo Mcclelland MD Primary Care Provider + Amy Montes De Oca RN Unavailable +[phone] Gregorio Dalton PA-C Unavailable +[phone] Kingsley Garcia MD Unavailable + [phone] Segundo Mcclelland MD Unavailable +[phone] Matser Shea PA-C Unavailable Allyssa Justice MD Unavailable [phone] Genaro Christian MD Unavailable + [phone] Master Shea PA-C Unavailable Sienna Guillermo DO Unavailable +[phone] Allyssa Justice MD Unavailable [phone] Encounter Details Date Type Department Care Team (Late st Contact Info) Description 04/15/2023 [facility] [address] [place] [phone] [place] [address] [place], [place] [id number] Social History Tobacco Use Types Packs/Day Years [...] encounter Miscellaneous Notes * Telephone Encounter - Brittney Reyes, RN - 04/16/2023 9:56 AM CDT Patient c/o side effects since starting topiramate. Brittney Reyes RN documented in this encounter Plan of Treatment Upcoming Encounters Date Type Department Care Team (Late st Contact Info) Description 05/09/2024 10:00 AM CDT Office Visit [facility] [address] [place] [phone] [place] [address] [facility] [place] [id number] documented as of this encounter Visit Diagnoses Not on filedocumented in this encounter Additional Health Concerns Infection Onset Date Last Indicated Resolved Time Rule Out C-difficile 06/04/2023 06/04/2023 023 11:28 AM CDT Rule Out Eleonora auris 06/04/2023 06/04/202306/07 9:24 AM CDT 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 03/08/2024 Rule Out COVID-19 11/10/2023 11/10/2023 11/10/2023 7:17 PM DISASTER RESPONSE DIRECTOR Rule Out COVID-19 01/18/2024 01/18/2024 01/18/2024 8:53 PM DISASTER RESPONSE DIRECTOR Rule Out COVID-19 01/28/2024 01/28/2024 01/28/2024 10:22 PM DISASTER RESPONSE DIRECTOR Rule Out COVID-19 02/17/2024 02/17/2024 02/17/2024 5:07 PM CDT Assessment Noted Time PHQ-9 Depression Total Score: 6 04/05/20 8:14 AM CDT documented as of this encounter Care Teams Tobacco Weigher Relationship Specialty Start Date End Date No Ref-Primary, Physician PCP - General 11/06/22 04/21/23 [place] [address] [address] [address] PCP - General Family Medicine 04/22/23 [place] [address] [address] [address] Assigned Pain Medication Provider 12/07/22 [place] [address] [address] [address] Assigned PCP 01/23/23 [place] [address] [address] [address] Assigned Musculoskeletal Provider 01/23/23 Amy Montes De Oca, RN Clinic Music Manager 05/13/2305/17 Gregorio Dalton PA-C [address] [place] [address] Assigned Surgical Provider 05/22/23 Kingsley Garcia MD [address] [place] [address] Assigned Heart and Vascular Provider 08/07/23 [place] [address] [place] [address] Family Medicine 09/10/23 Master Shea PA-C [address] [place] [address] Physician Power Wood Sawyer Gastroenterology 09/10/23 Allyssa Justice MD [facility] [address] [place] [address] Hematology & Oncology 12/10/23 Genaro Christian MD 6 [place] [address] Cardiovascular Disease 12/22/23 Master Shea PA-C [address] [place] [address] Assigned Gastroenterology Provider 12/23/23 Sienna Guillermo DO [address] [place] [address] Physician Cardiovascular Disease 01/18/24 Allyssa Justice MD [facility] [place] [address] [place] [address] Assigned Cancer Care Provider 03/21/24 documented as of this encounter
--- OUTSIDE RECORDS SUMMARY | 2024-03-25 18:23 | XMS_ITS | Encounter Summary ---
Author Name Unknown Organization [facility] Address [address] [place] [address] Care Team Providers Care Designer Writer Name Role Phone Segundo Mcclelland MD Unavailable +[phone] Segundo Mcclelland MD Unavailable +[phone] Qamar Jackson MD Unavailable Segundo Mcclelland MD Primary Care Provider + Amy Montes De Oca RN Unavailable +[phone] Gregorio Dalton PA-C Unavailable +[phone] Kingsley Garcia MD Unavailable + [phone] Segundo Mcclelland MD Unavailable +[phone] Master Shea PA-C Unavailable Allyssa Justice MD Unavailable [phone] Genaro Christian MD Unavailable + [phone] Master Shea-Shirley Unavailable Sienna Guillermo DO Unavailable +[phone] Allyssa Justice MD Unavailable [phone] Encounter Details Date Type Department Care Team (Late st Contact Info) Description 05/12/2023 [facility] [address] [place] [place] [id number] Clive Mittal, LEEANNE Social History Tobacco Use Types Packs/Day Years [...] AM CDT Office Visit [facility] [id number] [place] [address] [place] [address] [place] [address] documented as of this encounter Visit Diagnoses Not on filedocumented in this encounter Additional Health Concerns Infection Onset Date Last Indicated Resolved Time Rule Out C-difficile 06/04/2023 06/04/2023 023 11:28 AM CDT Rule Out Eleonora auris 06/04/2023 06/04/202306/07 9:24 AM CDT 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 03/08/2024 Rule Out COVID-19 11/10/2023 11/10/2023 11/10/2023 7:17 PM FORMS EXAMINER Rule Out COVID-19 01/18/2024 01/18/2024 01/18/2024 8:53 PM FORMS EXAMINER Rule Out COVID-19 01/28/2024 01/28/2024 01/28/2024 10:22 PM FORMS EXAMINER Rule Out COVID-19 02/17/2024 02/17/2024 02/17/2024 5:07 PM CDT Assessment Noted Time PHQ-9 Depression Total Score: 6 04/05/20 8:14 AM CDT documented as of this encounter Care Teams Designer Writer Relationship Specialty Start [place] [address] [place] [address] PCP - General Family Medicine 04/22/23 [place] [address] [place] [address] Assigned Pain Medication Provider 12/07/22 [place] [address] [address] [address] Assigned PCP 01/23/23 [place] [address] [place] [address] Assigned Musculoskeletal Provider 01/23/23 Amy Montes De cOa RN Clinic Wildlife Forensic Geneticist 05/13/2305/17 Gregorio Dalton PA-C [address] [address] Assigned Surgical Provider 05/22/23 Kingsley Garcia MD [address] [place] [address] Assigned Heart and Vascular Provider 08/07/23 [place] [address] [place] [address] Family Medicine 09/10/23 Master Shea PA-C [address] [place] [place] [address] Physician Asphalt Smoother Gastroenterology 09/10/23 Allyssa Justice MD [facility] [address] [place] [address] Hematology & Oncology 12/10/23 Genaro Christian MD [address] [place] [address] Cardiovascular Disease 12/22/23 Master Shea PA-C [address] [place] [address] Assigned Gastroenterology Provider 12/23/23 Sienna Guillermo DO [address] [place] [address] Physician Cardiovascular Disease 01/18/24 Allyssa Justice MD [facility] [address] [place] 764[address] Assigned Cancer Care Provider 03/21/24 documented as of this encounter
[2024-03-25 18:24] LABS: Anion Gap 8 mEq/L (7-15); Aspartate Amino Transferase* 51 U/L (12-35); Bilirubin Total* 0.4 mg/dL (0.1-1.5); Carbon Dioxide* 23 mmol/L (20-32); Creatinine* 0.6 mg/dL (0.5-1.5); Est. Creatinine Clearance* 119.01; Estimated Glomerular Filt Rate 118 ml/min
--- OUTSIDE RECORDS SUMMARY | 2024-03-25 18:24 | XMS_ITS | Encounter Summary ---
Author Name Unknown Organization [facility] Address [facility] [place] [address] Care Team Providers Care Steno Typist Name Role Phone Segundo Mcclelland MD Unavailable + [phone] [facility] Primary Care Provide r Villa Santamaria PA-C Unavailable + Segundo Mcclelland MD Unavailable + [phone] Segundo Mcclelland MD Primary Care Provider + Sienna Guillermo DO Unavailable +[phone] Sandy Cox APRN PRECISION DYER Unavailable + Segundo Mcclelland MD Unavailable + [phone] Sienna Guillermo DO Unavailable +[phone] Malia Dhillon MD Primary Care Provider +[phone] No Ref-Primary, Physician Primary Care Provider Mai Urena PA-C Unavailable + [phone] Segundo Mcclelland MD Unavailable + [phone] Segundo Mcclelland MD Unavailable + [phone] Qamar Jackson MD Unavailable Segundo Mcclelland MD Primary Care Provider + Amy Montes De Oca RN Unavailable +[phone] ShaCliftonrhona Arreaga PA-C Unavailable +[phone] Kingsley Garcia MD Unavailable + [phone] Segundo Mcclelland MD Unavailable +[phone] Master Shea PA-C Unavailable Allyssa Justice MD Unavailable +[phone] Genaro Christian MD Unavailable +[phone] Master Shea-C Unavailable Sienna Guillermonirogers MCCORMACK Unavailable +[phone] Allyssa Justice MD Unavailable +[phone] Encounter Details Date Type Department Care Team (Late Contact Info) Description 10/31/2020 MyC Medical Advice [address] [address] Jena Jeronimo RN Social History Tobacco Use Types Packs/Day Years Used Date Smoking Tobacco: Never Smokeless Tobacco: Never Alcohol Use Standard Drinks/Week Comments Yes 0 (1 standard drink = 0.6 oz pur e alcohol) occasional PHQ-2 Answer Date Recorded PHQ-2 Score 1 12/06/2018 Sex and Gender Information Value Date Recorded Sex Assigned at Female 05/26/2021 10:37 AM CDT Gender Identity Female 05/26/2021 10:37 AM CDT Sexual Orientation Straight 05/26/2021 10 :37 AM CDT COVID-19 Exposure Response Date Recorded In the last month, have you been in contact with someone who was confirmed or suspected to have Coronavirus / COVID-19? Yes 10/27/2020 1:02 PM LITHOGRAPHER HELPER documented as of this encounter Plan of Treatment Upcoming Encounters Date Type Department Care Team (Late Contact Info) Description 05/09/2024 10:00 AM CDT Office Visit [facility] [address] [place] [address] [place] [address] [place] [address] documented as of this encounter Visit Diagnoses Not on filedocumented in this encounter Additional Health Concerns Infection Onset Date Last Indicated Resolved Time Rule Out COVID-19 10/27/2020 10/27/2020 11/17/2020 11:39 PM LITHOGRAPHER HELPER Rule Out COVID-19 12/23/2020 12/24/2020 12/24/2020 2:08 AM LITHOGRAPHER HELPER Rule Out COVID-19 01/24/2021 01/24/2021 01/24/2021 9:18 PM LITHOGRAPHER HELPER Rule Out COVID-19 10/27/2022 10/27/2022 10/27/2022 3:19 AM LITHOGRAPHER HELPER Influenza 10/27/2022 10/27/2022 11/03/2022 11:4 0 PM LITHOGRAPHER HELPER Rule Out COVID-19 01/04/2023 01/04/2023 01/04/2023 8:32 PM LITHOGRAPHER HELPER Rule Out C-difficile 01/04/2023 01/04/2023 023 1:46 AM LITHOGRAPHER HELPER Rule Out C-difficile 01/07/2023 01/07/2023 023 8:18 PM LITHOGRAPHER HELPER Rule Out C-difficile 06/04/2023 06/04/2023 023 11:28 AM CDT Rule Out Eleonora auris 06/04/2023 06/04/202306/07 9:24 AM CDT 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 03/08/2024 Rule Out COVID-19 11/10/2023 11/10/2023 11/10/2023 7:17 PM LITHOGRAPHER HELPER Rule Out COVID-19 01/18/2024 01/18/2024 01/18/2024 8:53 PM LITHOGRAPHER HELPER Rule Out COVID-19 01/28/2024 01/28/2024 01/28/2024 10:22 PM LITHOGRAPHER HELPER Rule Out COVID-19 02/17/2024 02/17/2024 02/17/2024 5:07 PM CDT Assessment Noted Time PHQ-9 Depression Total Score: 1 08/16/20 18 4:58 PM CDT documented as of this encounter Care Teams Steno Typist Relationship Specialty Start Date End Date [facility] [address] [place] [address] PCP - General 09/27/20 08/16/21 [place] [address] [place] [address] PCP - General Family Medicine 08/17/21 10/26/22 [place] [address] [place] [address] PCP - General Family Medicine 10/27/22 10/27/22 No Ref-Primary, Physician PCP - General 11/06/22 04/21/23 [place] [address] [place] [address] PCP - General Family Medicine 04/22/23 [place] [address] [place] [address] Assigned PCP 03/17/20 03/15/21 Villa Santamaria [place]-C [address] [place] [address] Assigned PCP 03/16/21 05/03/21 [place] [address] [address] Assigned PCP 05/04/21 01/17/22 Sienna Guillermo DO [address] [place] [address] Assigned Heart and Vascular Provider 09/21/21 10/04/21 Sandy Cox APRN CNP [address] [place] [address] Assigned Heart and Vascular Provider 10/05/21 09/04/22 [place] [address] [place] [address] Assigned PCP 01/18/22 10/30/22 Sienna Guillermo DO [address] [place] [address] Assigned Heart and Vascular Provider 09/05/22 03/12/23 Mai Urena PA-C [address] [place] [address] Assigned PCP 10/31/22 01/22/23 [place] [address] [place] [address] Assigned Pain Medication Provider 12/07/22 [place] [address] [place] [address] Assigned PCP 01/23/23 [place] [address] [place] [address] Assigned Musculoskeletal Provider 01/23/23 Amy Montes De Oca, RN Clinic Quick Print Operator 05/13/2305/17 Gregorio Dalton PA-C [address] [address] Assigned Surgical Provider 05/22/23 Kingsley Garcia MD [address] [place] [address] Assigned Heart and Vascular Provider 08/07/23 [place] [address] [address] [address] Family Medicine 09/10/23 Master Shea PA-C [address] [place] [address] Physician Tiler Gastroenterology 09/10/23 Allyssa Justice MD [facility] [address] [place] [address] Hematology & Oncology 12/10/23 Genaro Christian MD 6 [place], [place] [address] Cardiovascular Disease 12/22/23 Master Shea PA-C [address] [place] [address] [place] [address] Assigned Gastroenterology Provider 12/23/23 Sienna Guillermo DO [address] [place] [address] Physician Cardiovascular Disease 01/18/24 Allyssa Justice MD [facility] [address] [place] [address] [address] [address] Assigned Cancer Care Provider 03/21/24 documented as of this encounter
--- OUTSIDE RECORDS SUMMARY | 2024-03-25 18:24 | XMS_ITS | Encounter Summary ---
Author Name Unknown Organization [place] Address [facility] [place] [address] Care Team Providers Care Echocardiographer Name Role Phone Segundo Mcclelland MD Unavailable [phone] Segundo Mcclelland MD Primary Care Provider + Sienna Guillermo DO Unavailable +[phone] Sandy Cox APRN CONSULTING ANALYST Unavailable + Segundo Mcclelland MD Unavailable +[phone] Sienna Guillermo DO Unavailable +[phone] Malia Dhillon MD Primary Care Provider +[phone] No Ref-Primary, Physician Primary Care Provider Mai Urena PA-C Unavailable + [phone] Segundo Mcclelland MD Unavailable + [phone] Segundo Mcclelland MD Unavailable +[phone] Qamar Jackson MD Unavailable Segundo Mcclelland MD Primary Care Provider + Amy Montes De Oca RN Unavailable +[phone] Gregorio Dalton PA-C Unavailable +[phone] Kingsley Garcia MD Unavailable + [phone] Segundo Mcclelland MD Unavailable +[phone] Master Shea PA-C Unavailable Allyssa Justice MD Unavailable [phone] Genaro Christian MD Unavailable [phone] Master Shea PA-C Unavailable Sienna Guillermo DO Unavailable +[phone] Allyssa Justice MD Unavailable [phone] Encounter Details Date Type Department Care Team (Late st Contact Info) Description 09/14/2021 Documentation Only INTERFACED REPORT Unknown, Provider Social [...] have Coronavirus / COVID-19? No / Unsure 09/17/2021 9:40 AM CDT documented as of this encounter Plan of Treatment Upcoming Encounters Date Type Department Care Team (Late st Contact Info) Description 05/09/2024 10:00 AM CDT Office Visit [facility] [address] [place] [address] [place] [address] [place] [address] documented as of this encounter Visit Diagnoses Not on filedocumented in this encounter Additional Health Concerns Infection Onset Date Last Indicated Resolved Time Rule Out COVID-19 10/27/2022 10/27/2022 10/27/2022 3:19 AM NURSES SUPERINTENDENT Influenza 10/27/2022 10/27/2022 11/03/2022 11:4 0 PM NURSES SUPERINTENDENT Rule Out COVID-19 01/04/2023 01/04/2023 01/04/2023 8:32 PM NURSES SUPERINTENDENT Rule Out C-difficile 01/04/2023 01/04/2023 023 1:46 AM NURSES SUPERINTENDENT Rule Out C-difficile 01/07/2023 01/07/2023 023 8:18 PM NURSES SUPERINTENDENT Rule Out C-difficile 06/04/2023 06/04/2023 023 11:28 AM CDT Rule Out Eleonora auris 06/04/2023 06/04/202306/07 9:24 AM CDT 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 03/08/2024 Rule Out COVID-19 11/10/2023 11/10/2023 11/10/2023 7:17 PM NURSES SUPERINTENDENT Rule Out COVID-19 01/18/2024 01/18/2024 01/18/2024 8:53 PM NURSES SUPERINTENDENT Rule Out COVID-19 01/28/2024 01/28/2024 01/28/2024 10:22 PM NURSES SUPERINTENDENT Rule Out COVID-19 02/17/2024 02/17/2024 02/17/2024 5:07 PM CDT Assessment Noted Time PHQ-9 Depression Total Score: 1 08/16/20 18 4:58 PM CDT documented as of this encounter Care Teams Echocardiographer Relationship Specialty Start [place] [address] [place] [address] PCP - General Family Medicine 08/17/21 10/26/22 [place] [address] [place] [address] PCP - General Family Medicine 10/27/22 10/27/22 No Ref-Primary, Physician PCP - General 11/06/22 04/21/23 [place] [address] [place] [address] PCP - General Family Medicine 04/22/23 [place] [address] [place] [address] Assigned PCP 05/04/21 01/17/22 Sienna Guillermo DO [address] [place] [address] Assigned Heart and Vascular Provider 09/21/21 10/04/21 Sandy Cox APRN CNP [address] [place] [address] Assigned Heart and Vascular Provider 10/05/21 09/04/22 [place] [address] [place] [address] Assigned PCP 01/18/22 10/30/22 Sienna Guillermo DO [address] [place] [address] Assigned Heart and Vascular Provider 09/05/22 03/12/23 Mai Urena PA-C [address] [place] [address] Assigned PCP 10/31/22 01/22/23 [place] [address] [place] [address] Assigned Pain Medication Provider 12/07/22 [place] [address] [place] [address] Assigned PCP 01/23/23 [place] [address] [place] [address] Assigned Musculoskeletal Provider 01/23/23 Amy Montes De Oca, RN Clinic Traffic Law Attorney 05/13/2305/17 Gregorio Dalton PA-C [address] [place] [address] Assigned Surgical Provider 05/22/23 Kingsley Garcia MD [address] [place] [address] Assigned Heart and Vascular Provider 08/07/23 [place] [address] [place] [address] Family Medicine 09/10/23 Master Shea PA-C [address] [facility] [place] [address] Physician Distributor Operator Gastroenterology 09/10/23 Allyssa Justice MD [facility] [address] [place] [address] Hematology & Oncology 12/10/23 Genaro Christian MD [address] [place], [place] [address] Cardiovascular Disease 12/22/23 Master Shea PA-C [address] [place] [address] Assigned Gastroenterology Provider 12/23/23 Sienna Guillermo DO [address] [place] [address] Physician Cardiovascular Disease 01/18/24 Allyssa Justice MD [facility] [address] [place] [address] Assigned Cancer Care Provider 03/21/24 documented as of this encounter
--- OUTSIDE RECORDS SUMMARY | 2024-03-25 18:24 | XMS_ITS | Encounter Summary ---
Author Name Unknown Organization [place] Address [facility] [place] [address] Care Team Providers Care Television Servicer Name Role Phone [facility] Care Provide r Villa Santamaria PA-C Unavailable + Villa Santamaria PA-C Unavailable + Segundo Mcclelland MD Unavailable + Segundo Mcclelland MD Unavailable + No Ref-Primary, Physician Primary Care Provider [facility] Provide r + Villa Santamaria PA-C Unavailable + Segundo Mcclelland MD Unavailable + Segundo Mcclelland MD Primary Care Provider + Sienna Guillermo DO Unavailable + Sandy Cox APRN, CNP Unavailable + Segundo Mcclelland MD Unavailable + Sienna Guillermo DO Unavailable +[phone] Malia Dhillon MD Primary Care Provider +[phone] No Ref-Primary, Physician Primary Care Provider Mai UrenaC Unavailable [phone] Segundo Mcclelland MD Unavailable +[phone] Segundo Mcclelland MD Unavailable [phone] Qamar Jackson MD Unavailable Segundo Mcclelland MD Primary Care Provider + Amy Montes De Oca RN Unavailable +[phone] Gregorio DaltonC Unavailable +[phone] Kingsley Garcia MD Unavailable Segundo Mcclelland MD Unavailable [phone] Master Shea PA-C Unavailable Allyssa Justice MD Unavailable +[phone] Genaro Christian MD Unavailable [phone] Master Shea PA-C Unavailable Sienna Guillermo DO Unavailable +[phone] Allyssa Justice MD Unavailable [phone] Encounter Details Date Type Department Care Team (Late st Contact Info) Description 05/17/2018 My[facility] Medical Advice [address], [address] [place] [address] Villa Santamaria PA-C [address] [place] [address] Social History Tobacco Use Types Packs/Day Years Used Date Smoking Tobacco: Never Smokeless Tobacco: Never Alcohol Use Standard Drinks/Week Comments Yes 0 (1 standard drink = 0.6 oz pur e alcohol) occasional Sex and Gender Information Value Date Recorded Sex Assigned at Female 05/26/2021 10:37 AM CDT Gender Identity Female 05/26/2021 10:37 AM CDT Sexual Orientation Straight 05/26/2021 10 :37 AM CDT documented as of this encounter Miscellaneous Notes * Telephone Encounter - Monie Chun RN - 05/17/2018 12:31 PM CDT Duplicate request. Monie Chun RN documented in this encounter Plan of Treatment Upcoming Encounters Date Type Department Care Team (Late st Contact Info) Description 05/09/2024 10:00 AM CDT Office Visit [facility] [address] [place] [address] [place] [address] [place] [address] documented as of this encounter Visit Diagnoses Not on filedocumented in this encounter Additional Health Concerns Infection Onset Date Last Indicated Resolved Time Rule Out COVID-19 02/29/2020 02/29/2020 03/01/2020 9:51 PM CDT Rule Out COVID-19 05/05/2020 05/05/2020 05/06/2020 2:19 AM CDT Rule Out COVID-19 08/20/2020 08/20/2020 08/21/2020 10:31 PM CDT Rule Out COVID-19 10/27/2020 10/27/2020 11/17/2020 11:39 PM RECREATION THERAPY AIDES TEACHER Rule Out COVID-19 12/23/2020 12/24/2020 12/24/2020 2:08 AM RECREATION THERAPY AIDES TEACHER Rule Out COVID-19 01/24/2021 01/24/2021 01/24/2021 9:18 PM RECREATION THERAPY AIDES TEACHER Rule Out COVID-19 10/27/2022 10/27/2022 10/27/2022 3:19 AM RECREATION THERAPY AIDES TEACHER Influenza 10/27/2022 10/27/2022 11/03/2022 11:4 0 PM RECREATION THERAPY AIDES TEACHER Rule Out COVID-19 01/04/2023 01/04/2023 01/04/2023 8:32 PM RECREATION THERAPY AIDES TEACHER Rule Out C-difficile 01/04/2023 01/04/2023 023 1:46 AM RECREATION THERAPY AIDES TEACHER Rule Out C-difficile 01/07/2023 01/07/2023 023 8:18 PM RECREATION THERAPY AIDES TEACHER Rule Out C-difficile 06/04/2023 06/04/2023 023 11:28 AM CDT Rule Out Eleonora auris 06/04/2023 06/04/202306/07 9:24 AM CDT 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 03/08/2024 Rule Out COVID-19 11/10/2023 11/10/2023 11/10/2023 7:17 PM RECREATION THERAPY AIDES TEACHER Rule Out COVID-19 01/18/2024 01/18/2024 01/18/2024 8:53 PM RECREATION THERAPY AIDES TEACHER Rule Out COVID-19 01/28/2024 01/28/2024 01/28/2024 10:22 PM RECREATION THERAPY AIDES TEACHER Rule Out COVID-19 02/17/2024 02/17/2024 02/17/2024 5:07 PM CDT Assessment Noted Time PHQ-9 Depression Total Score: 3 04/30/20 18 7:18 AM CDT documented as of this encounter Care Teams Television Servicer Relationship Specialty Start Date End Date [facility] [place] [address] PCP - General 05/01/18 09/24/20 Villa Santamaria PA-C [address] [place] [address] PCP - Assigned PCP 05/01/18 01/31/19 No Ref-Primary, Physician PCP - General 09/25/20 09/26/20 [facility] [place] [address] PCP - General 09/27/20 08/16/21 [place] [address] [place] [address] PCP - General Family Medicine 08/17/21 10/26/22 [place] [address] [place] [address] PCP - General Family Medicine 10/27/22 10/27/22 No Ref-Primary, Physician PCP - General 11/06/22 04/21/23 [place] [address] [place] [address] PCP - General Family Medicine 04/22/23 Villa Santamaria PA-C [address] [place] [address] Assigned PCP 05/01/18 08/19/19 [place] [address] [place] [address] Assigned PCP 08/20/19 03/16/20 [place] [address] [place] [address] Assigned PCP 03/17/20 03/15/21 Villa Santamaria PA-C [address] [place] [address] Assigned PCP 03/16/21 05/03/21 [place] [address] [place] [address] Assigned PCP 05/04/21 01/17/22 Sienna Guillermo DO [address] [place] [address] Assigned Heart and Vascular Provider 09/21/21 10/04/21 Sandy Cox APRN CNP [address] [place] [address] Assigned Heart and Vascular Provider 10/05/21 09/04/22 [place] [address] [place] [address] Assigned PCP 01/18/22 10/30/22 Sienna Guillermo DO [address] [place] [address] Assigned Heart and Vascular Provider 09/05/22 03/12/23 Mai Urena PA-C [address] [facility] [place] [address] Assigned PCP 10/31/22 01/22/23 [place] [address] [place] [address] Assigned Pain Medication Provider 12/07/22 [place] [address] [place] [address] Assigned PCP 01/23/23 [place] [address] [place] [address] Assigned Musculoskeletal Provider 01/23/23 Amy Montes De Oca RN Clinic Gauge Maker Apprentice 05/13/2305/17 Gregorio Dalton PA-C [address] [place] [address] Assigned Surgical Provider 05/22/23 Kingsley Garcia MD [address] [place] [address] Assigned Heart and Vascular Provider 08/07/23 [place] [address] [place] [address] Family Medicine 09/10/23 Master Shea PA-C [address] [place] [address] Physician Assistant Activities Director Gastroenterology 09/10/23 Allyssa Justice MD [facility] [address] [place] [address] Hematology & Oncology 12/10/23 Genaro Christian MD 6 [place] [address] Cardiovascular Disease 12/22/23 Master Shea PA-C [address] [place] [address] Assigned Gastroenterology Provider 12/23/23 Sienna Guillermo DO [address] [place] [address] Physician Cardiovascular Disease 01/18/24 Allyssa Justice MD [facility] [address] [place] [address] Assigned Cancer Care Provider 03/21/24 documented as of this encounter
--- OUTSIDE RECORDS SUMMARY | 2024-03-25 18:24 | XMS_ITS | Encounter Summary ---
Author Name Unknown Organization [place] Address [facility] [place] [address] Care Team Providers Care Gis Web Developer Name Role Phone Trinidad Taylor [facility] Primary Care Provider None Primary Care Provider Unavailabl e Jennifer Escobedo MD Primary Care Provider [phone] Nimo Wetzel Primary Care Provider [phone] Kin Waite MD Primary Care Provider [phone] [facility] Primary Care Prov ider Uyen Palm MD Primary Care Provider +[phone] Milady Oakes MD Primary Care Provider + Counts Include [facility] Primary Care Provider [facility] Primary Care Pro vider No Ref-Primary, Physician Primary Care Provider [facility] Primary Care Provide r Villa Santamaria PA-C Unavailable + Villa Santamaria PA-C Unavailable + Segundo Mcclelland MD Unavailable + Segundo Mcclelland MD Unavailable + No Ref-Primary, Physician Primary Care Provider [facility] Primary Care Provide r Villa SantamariaC Unavailable + Segundo Mcclelland MD Unavailable + Segundo Mcclelland MD Primary Care Provider + Sienna Guillermo DO Unavailable + Sandy Cox APRN [employer] Unavailable + Segundo Mcclelland MD Unavailable + Sienna Guillermo DO Unavailable + Malia Dhillon MD Primary Care Provider [phone] No Ref-Primary, Physician Primary Care Provider Mai Urena-C Unavailable [phone] Segundo Mcclelland MD Unavailable + Segundo Mcclelland MD Unavailable + Qamar Jackson MD Unavailable Segundo Mcclelland MD Primary Care Provider + Amy Montes De Oca RN Unavailable +[phone] Gregorio Dalton-C Unavailable [phone] Kingsley Garcia MD Unavailable [phone] Segundo Mcclelland MD Unavailable + Master SheaC Unavailable Allyssa Justice MD Unavailable [phone] Genaro Christian MD Unavailable +[phone] Master Shea-C Unavailable Sienna Guillermo DO Unavailable + Allyssa Justice MD Unavailable [phone] Reason for Visit * Reason Onset Date Comments Refill Request 02/26/2009 CYCLOBENZAPRINE 10MG AND PERCOCET 5/325MG Encounter Details Date Type Department Care Team (Late st Contact Info) Description 02/26/[address] [place] [address] None Refill Request (CYCLOBENZAPRINE 10MG AND PERCOCET 5/325MG) Social History Tobacco Use Types Packs/Day Years Used Date Smoking Tobacco: Never Alcohol Use Standard Drinks/Week Comments No 0 (1 standard drink = 0.6 oz pur e alcohol) not while Sex and Gender Information Value Date Recorded Sex Assigned at Female 05/26/2021 10:37 AM CDT Gender Identity Female 05/26/2021 10:37 AM CDT Sexual Orientation Straight 05/26/2021 10 :37 AM CDT documented as of this encounter Miscellaneous Notes * Telephone Encounter - Huan Velásquez - 02/26/2009 5:13 PM CDT Rx printed and at pharmacy * Telephone Encounter - Jennifer Campo - 02/26/2009 11:47 AM CDT Med request::percocet and cyclobenzeprine Date of last OV: 02/15/[address] Velásquez. Last refill of both: 02/15/09 Refill request forwarded to provider for review. Does not meet criteria for med refill by RN rashad. Jennifer Campo RN * Telephone Encounter - Jeovanny Dominguez - 02/26/2009 9:31 AM CDT LAST FILLED ON 02/15/09 PLEASE WALK OVER TO PHARMACY AND WE WILL CALL WHEN READY JEOVANNY DOMINGUEZ-PRODUCTION UNDERWRITER documented in this encounter Plan of Treatment Upcoming Encounters Date Type Department Care Team (Late st Contact Info) Description 05/09/2024 10:00 AM CDT Office Visit [facility] [address] [facility] [place] [address] [place] [address] [place] [place] [address] documented as of this encounter Visit Diagnoses Diagnosis Lumbar back pain- Primary Lumbago documented in this encounter Additional Health Concerns Infection Onset Date Last Indicated Resolved Time Rule Out COVID-19 02/29/2020 02/29/2020 03/01/2020 9:51 PM CDT Rule Out COVID-19 05/05/2020 05/05/2020 05/06/2020 2:19 AM CDT Rule Out COVID-19 08/20/2020 08/20/2020 08/21/2020 10:31 PM CDT Rule Out COVID-19 10/27/2020 10/27/2020 11/17/2020 11:39 PM PEANUT SALTER Rule Out COVID-19 12/23/2020 12/24/2020 12/24/2020 2:08 AM PEANUT SALTER Rule Out COVID-19 01/24/2021 01/24/2021 01/24/2021 9:18 PM PEANUT SALTER Rule Out COVID-19 10/27/2022 10/27/2022 10/27/2022 3:19 AM PEANUT SALTER Influenza 10/27/2022 10/27/2022 11/03/2022 11:4 0 PM PEANUT SALTER Rule Out COVID-19 01/04/2023 01/04/2023 01/04/2023 8:32 PM PEANUT SALTER Rule Out C-difficile 01/04/2023 01/04/2023 023 1:46 AM PEANUT SALTER Rule Out C-difficile 01/07/2023 01/07/2023 023 8:18 PM PEANUT SALTER Rule Out C-difficile 06/04/2023 06/04/2023 023 11:28 AM CDT Rule Out Eleonora auris 06/04/2023 06/04/202306/07 9:24 AM CDT 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 03/08/2024 Rule Out COVID-19 11/10/2023 11/10/2023 11/10/2023 7:17 PM PEANUT SALTER Rule Out COVID-19 01/18/2024 01/18/2024 01/18/2024 8:53 PM PEANUT SALTER Rule Out COVID-19 01/28/2024 01/28/2024 01/28/2024 10:22 PM PEANUT SALTER Rule Out COVID-19 02/17/2024 02/17/2024 02/17/2024 5:07 PM CDT documented as of this encounter Care Teams Gis Web Developer Relationship Specialty Start Date End Date [facility] [address] [place] [address] PCP - General 01/11/04 09/22/10 None PCP - General 09/23/10 09/02/11 Jennifer Escobedo MD [address] [facility] [address] [place] [address] PCP - General inspector tubes 09/03/11 11/01/11 Nimo Wetzel [address] [facility] [address] [place] [address] PCP - General 11/02/11 04/17/12 Kin Waite MD [address] [facility] [address] [place] [address] PCP - General inspector tubes 04/18/12 11/22/12 [facility], [address], [facility] [address] [place] [id number] PCP - General 11/23/12 11/25/13 Uyen Palm MD [address] [facility] 400 [place], [place] [id number] PCP - General inspector tubes 11/26/13 09/02/14 Milady Oakes MD [facility] [address] [place] [address] PCP - General Family Practice 09/03/14 09/20/15 Counts Include [address] [facility] [address] [place] [id number] PCP - General 09/21/15 07/10/17 [facility] [address] [place] [address] PCP - General 07/11/17 01/19/18 No Ref-Primary, Physician PCP - General 01/20/18 04/30/18 [facility] ADMINISTRATION [place] [address] PCP - General 05/01/18 09/24/20 Villa Santamaria [place]-C [address] [place] [address] PCP - Assigned PCP 05/01/18 01/31/19 No Ref-Primary, Physician PCP - General 09/25/20 09/26/20 [facility] ADMINISTRATION [place] [address] PCP - General 09/27/20 08/16/21 [place] [address] [place] [address] PCP - General Family Medicine 08/17/21 10/26/22 [place] [address] [place] [address] PCP - General Family Medicine 10/27/22 10/27/22 No Ref-Primary, Physician PCP - General 11/06/22 04/21/23 [place] [address] [place] [address] PCP - General Family Medicine 04/22/23 Villa Santamaria PA-C [address] [place] [address] Assigned PCP 05/01/18 08/19/19 [place] [address] [place] [address] Assigned PCP 08/20/19 03/16/20 [place] [address] [place] [address] Assigned PCP 03/17/20 03/15/21 Villa Santamaria PA-C [address] [place] [address] Assigned PCP 03/16/21 05/03/21 [place] [address] [place] [address] Assigned PCP 05/04/21 01/17/22 Sienna Guillermo DO [address] [place] [address] Assigned Heart and Vascular Provider 09/21/21 10/04/21 Sandy Cox APRN CNP [address]00 [place] [address] Assigned Heart and Vascular Provider 10/05/21 09/04/22 [place] [address] [place] [address] Assigned PCP 01/18/22 10/30/22 Sienna Guillermo DO [address] [place] [address] Assigned Heart and Vascular Provider 09/05/22 03/12/23 Mai Urena PA-C [address] [facility] [address] Assigned PCP 10/31/22 01/22/23 [place] [address] [place] [address] Assigned Pain Medication Provider 12/07/22 [place] [address] [place] [address] Assigned PCP 01/23/23 [place] [address] [place] [address] Assigned Musculoskeletal Provider 01/23/23 Amy Montes De Oca, RN Clinic Senior Pharmacy Technician 05/13/2305/17 Gregorio Dalton PA-C [address] [place] [address] Assigned Surgical Provider 05/22/23 Kingsley Garcia MD [address] [place] [address] Assigned Heart and Vascular Provider 08/07/23 [place] [address] [place] [address] Family Medicine 09/10/23 Master Shea PA-C [address] [place] [address] Physician Scientific Writer Gastroenterology 09/10/23 Allyssa Justice MD [facility] [address] [place] [address] Hematology & Oncology 12/10/23 Genaro Christian MD [address] [place] [address] Cardiovascular Disease 12/22/23 Master Shea PA-C [address] [place] [place] [address] Assigned Gastroenterology Provider 12/23/23 Sienna Guillermo DO [address] [place] [address] Physician Cardiovascular Disease 01/18/24 Allyssa Justice MD [facility] [address] [place] [address] Assigned Cancer Care Provider 03/21/24 documented as of this encounter
--- OUTSIDE RECORDS SUMMARY | 2024-03-25 18:24 | XMS_ITS | Encounter Summary ---
Author Name Unknown Organization [place] Address [facility] [place] [address] Care Team Providers Care Mentally Retarded Teacher Name Role Phone Nimo Wetzel Primary Care Provider [phone] Kin Waite MD Primary Care Provider [phone] [facility] Prov ider Uyen Palm MD Primary Care Provider [phone] Milady Oakes MD Primary Care Provider + [facility] Primary Care Provider [facility] Primary Care Pro vider No Ref-Primary, Physician Primary Care Provider [facility] Provide r Villa Santamaria PA-C Unavailable + Villa Santamaria PA-C Unavailable + Segundo Mcclelland MD Unavailable + Segundo Mcclelland MD Unavailable + No Ref-Primary, Physician Primary Care Provider [facility] Provide r Villa Santamaria PA-C Unavailable + Segundo Mcclelland MD Unavailable + Segundo Mcclelland MD Primary Care Provider + Sienna Guillermo DO Unavailable +[phone] Seng Coxurelon Bhakta APRN DISTRICT ATTORNEY Unavailable + Segundo Mcclelland MD Unavailable + Sienna Guillermo DO Unavailable +[phone] Malia Dhillon MD Primary Care Provider [phone] No Ref-Primary, Physician Primary Care Provider Mai Urena PA-C Unavailable + [phone] Segundo Mcclelland MD Unavailable + Segundo Mcclelland MD Unavailable + [phone] Qamar Jackson MD Unavailable Segundo Mcclelland MD Primary Care Provider + Amy Montes De Oca RN Unavailable +[phone] Gregorio Dalton PA-C Unavailable +[phone] Kingsley Garcia MD Unavailable +[phone] Segundo Mcclelland MD Unavailable + [phone] Master Shea PA-C Unavailable Allyssa Justice MD Unavailable +[phone] Genaro Christian MD Unavailable + Master Shea-Shirley Unavailable Sienna Guillermo DO Unavailable +[phone] Allyssa Justice MD Unavailable Encounter Details Date Type Department Care Team (Late st Contact Info) Description 12/17/2011 [facility] [place] [address] [facility] [address] [place] [id number] Caridad Garcia MD [address] [facility] [address] [place] [address] Social History Tobacco Use Types Packs/Day Years Used Date Smoking Tobacco: Never Alcohol Use Standard Drinks/Week Comments Not Asked 0 (1 standard drink = 0.6 oz pur e alcohol) not while Comments Yes Sex and Gender Information Value Date Recorded Sex Assigned at Female 05/26/2021 10:37 AM CDT Gender Identity Female 05/26/2021 10:37 AM CDT Sexual Orientation Straight 05/26/2021 10 :37 AM CDT documented as of this encounter Plan of Treatment Upcoming Encounters Date Type Department Care Team (Late st Contact Info) Description 05/09/2024 10:00 AM CDT Office Visit [facility] [address] [place] [address] [place] [address] [place] [address] documented as of this encounter Visit Diagnoses Not on filedocumented in this encounter Additional Health Concerns Infection Onset Date Last Indicated Resolved Time Rule Out COVID-19 02/29/2020 02/29/2020 03/01/2020 9:51 PM CDT Rule Out COVID-19 05/05/2020 05/05/2020 05/06/2020 2:19 AM CDT Rule Out COVID-19 08/20/2020 08/20/2020 08/21/2020 10:31 PM CDT Rule Out COVID-19 10/27/2020 10/27/2020 11/17/2020 11:39 PM ENVIRONMENTAL PERMITTING SPECIALIST Rule Out COVID-19 12/23/2020 12/24/2020 12/24/2020 2:08 AM ENVIRONMENTAL PERMITTING SPECIALIST Rule Out COVID-19 01/24/2021 01/24/2021 01/24/2021 9:18 PM ENVIRONMENTAL PERMITTING SPECIALIST Rule Out COVID-19 10/27/2022 10/27/2022 10/27/2022 3:19 AM ENVIRONMENTAL PERMITTING SPECIALIST Influenza 10/27/2022 10/27/2022 11/03/2022 11:4 0 PM ENVIRONMENTAL PERMITTING SPECIALIST Rule Out COVID-19 01/04/2023 01/04/2023 01/04/2023 8:32 PM ENVIRONMENTAL PERMITTING SPECIALIST Rule Out C-difficile 01/04/2023 01/04/2023 023 1:46 AM ENVIRONMENTAL PERMITTING SPECIALIST Rule Out C-difficile 01/07/2023 01/07/2023 023 8:18 PM ENVIRONMENTAL PERMITTING SPECIALIST Rule Out C-difficile 06/04/2023 06/04/2023 023 11:28 AM CDT Rule Out Eleonora auris 06/04/2023 06/04/202306/07 9:24 AM CDT 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 03/08/2024 Rule Out COVID-19 11/10/2023 11/10/2023 11/10/2023 7:17 PM ENVIRONMENTAL PERMITTING SPECIALIST Rule Out COVID-19 01/18/2024 01/18/2024 01/18/2024 8:53 PM ENVIRONMENTAL PERMITTING SPECIALIST Rule Out COVID-19 01/28/2024 01/28/2024 01/28/2024 10:22 PM ENVIRONMENTAL PERMITTING SPECIALIST Rule Out COVID-19 02/17/2024 02/17/2024 02/17/2024 5:07 PM CDT documented as of this encounter Care Teams Mentally Retarded Teacher Relationship Specialty Start Date End Date Rashard Nimo Zenia PCP - General 11/02/11 04/17/12 Kin Waite MD PCP - General lock and dam equipment repairer 04/18/12 11/22/12 [facility] Family [address] [place] [address] PCP - General 11/23/12 11/25/13 Uyen Palm MD [address] [place] [address] PCP - General lock and dam equipment repairer 11/26/13 09/02/14 Milady Oakes MD [facility] [address] [place] [address] PCP - General Family Practice 09/03/14 09/20/15 [facility] [address] [place] [address] PCP - General 09/21/15 07/10/17 [facility] [address] [place] [address] PCP - General 07/11/17 01/19/18 No Ref-Primary, Physician PCP - General 01/20/18 04/30/18 [facility] IN[place]CTION [place] [address] PCP - General 05/01/18 09/24/20 Villa Santamaria PA-C [address] [place] [address] PCP - Assigned PCP 05/01/18 01/31/19 No Ref-Primary, Physician PCP - General 09/25/20 09/26/20 [facility] INDUCTION [place] [address] PCP - General 09/27/20 08/16/21 [place] [address] [place] [address] PCP - General Family Medicine 08/17/21 10/26/22 [place] [address] [place] [address] PCP - General Family Medicine 10/27/22 10/27/22 No Ref-Primary, Physician PCP - General 11/06/22 04/21/23 [place] [address] [place] [address] PCP - General Family Medicine 04/22/23 Villa Santamaria PA-C [address] [place] [address] Assigned PCP 05/01/18 08/19/19 [place] [address] [place] [address] Assigned PCP 08/20/19 03/16/20 [place] [address] [place] [address] Assigned PCP 03/17/20 03/15/21 Villa Santamaria PA-C [address] [place] [address] Assigned PCP 03/16/21 05/03/21 [place] [address] [place] [address] Assigned PCP 05/04/21 01/17/22 Sienna Guillermo DO [address] [place] [address] Assigned Heart and Vascular Provider 09/21/21 10/04/21 Sandy Cox APRN CNP [address] [place] [address] Assigned Heart and Vascular Provider 10/05/21 09/04/22 [place] [address] [place] [address] Assigned PCP 01/18/22 10/30/22 Sienna Guillermo DO [address] [place] [address] Assigned Heart and Vascular Provider 09/05/22 03/12/23 Mai Urena PA-C [address] [place] [address] Assigned PCP 10/31/22 01/22/23 [place] [address] [address] Assigned Pain Medication Provider 12/07/22 [place] [address] [place] [address] Assigned PCP 01/23/23 [place] [address] [place] [address] Assigned Musculoskeletal Provider 01/23/23 Amy Montes De Oca, RN Clinic Executive Director Global Brand Marketing 05/13/2305/17 Gregorio Dalton PA-C [address] [place] [address] Assigned Surgical Provider 05/22/23 Kingsley Garcia MD [address] [place] [address] Assigned Heart and Vascular Provider 08/07/23 [place] [address] [place] [address] Family Medicine 09/10/23 Master Shea PA-C [address] [place] [address] Physician Emd Teacher Gastroenterology 09/10/23 Allyssa Justice MD [facility] [address] [place] [address] Hematology & Oncology 12/10/23 Genaro Christian MD [address] [place] [address] Cardiovascular Disease 12/22/23 Master Shea PA-C [address] [place] [address] Assigned Gastroenterology Provider 12/23/23 Sienna Guillermo DO [address] [place] [address] Physician Cardiovascular Disease 01/18/24 Allyssa Justice MD [facility] [address] [place] [address] Assigned Cancer Care Provider 03/21/24 documented as of this encounter
--- OUTSIDE RECORDS SUMMARY | 2024-03-25 18:24 | XMS_ITS | Encounter Summary ---
Author Name Unknown Organization [place] Address [facility] [place] [address] Care Team Providers Care Agronomy Professor Name Role Phone [facility] Care Provide r Villa Santamaria PA-C Unavailable + Villa Santamaria PA-C Unavailable + Segundo Mcclelland MD Unavailable + Segundo Mcclelland MD Unavailable + No Ref-Primary, Physician Primary Care Provider [facility] Provide r + Villa Santamaria PA-C Unavailable + Segundo Mcclelland MD Unavailable + Segundo Mcclelland MD Primary Care Provider + Sienna Guillermo DO Unavailable + Sandy Cox APRN, CNP Unavailable + Segundo Mcclelland MD Unavailable + Sienna Guillermo DO Unavailable +[phone] Malia Dhillon MD Primary Care Provider [phone] No Ref-Primary, Physician Primary Care Provider Mai UrenaC Unavailable [phone] Segundo Mcclelland MD Unavailable +[phone] Segundo Mcclelland MD Unavailable +[phone] Qamar Jackson MD Unavailable Segundo Mcclelland MD Primary Care Provider + Amy Montes De Oca RN Unavailable +[phone] Gregorio DaltonC Unavailable +[phone] Kingsley Garcia MD Unavailable + [phone] Segundo Mcclelland MD Unavailable +[phone] Master Shea PA-C Unavailable Allyssa Justice MD Unavailable +[phone] Genaro Christian MD Unavailable [phone] Master Shea PA-C Unavailable Sienna Guillermo DO Unavailable +[phone] Allyssa Justice MD Unavailable [phone] Reason for Visit * Reason Onset Date Comments Medication Refill 10/11/2018 busPIRone (BUS PAR) 5 MG tablet Encounter Details Date Type Department Care Team (Late st Contact Info) Description 10/11/[address], [address] [place] [address] Villa Santamaria PA-C [address] [place] [address] Medication Refill (busPIRone (BUSPAR) 5 MG tablet) Social History Tobacco Use Types Packs/Day Years [...] Telephone Encounter - Monie Chun RN - 10/12/2018 11:06 AM CST Prescription approved per [facility] Refill Protocol. Monie Chun RN MARKER * Telephone Encounter - Dee Min - 10/11/2018 11:28 AM CST Images from the original note were not included. Requested Prescriptions Pending Prescriptions Disp Refills ??? busPIRone (BUSPAR) 5 MG tablet [Pharmacy Med Name: BUSPIRONE HCL 5 MG TABLET] 60 tablet 1 Last Written Prescription Date: 08/15/18 Last Fill Quantity: 60, # refills: 1 Last Office Visit: 08/15/2018 Santamaria Return in about 6 months (around 02/12/2019) for Med Check. Future Office Visit: Sig: TAKE 1 TABLET (5 MG) BY MOUTH 2 TIMES DAILY NEEDED FOR ANXIETY OR PANIC Atypical Antidepressants Protocol Passed 10/11/2018 11:19 AM Passed - Recent (12 mo) or future (30 days) visit within the authorizing provider's specialty Patient had office visit in the last 12 months or has a visit in the next 30 days with authorizing provider or within the authorizing provider's specialty. See Patient Info tab in inbasket, or Choose Columns in Meds & Orders section of the refill encounter. Passed - Patient is age 18 or older Passed - No active on record Passed - No positive test in past 12 mos MARKER documented in this encounter Plan of Treatment Upcoming Encounters Date Type Department Care Team (Late st Contact Info) Description 05/09/2024 10:00 AM CDT Office Visit [facility] [address] [place] [id number] [place] [address] [place] [address] (work) documented as of this encounter Visit Diagnoses Diagnosis Anxiety Anxiety state, unspecified documented in this encounter Additional Health Concerns Infection Onset Date Last Indicated Resolved Time Rule Out COVID-19 02/29/2020 02/29/2020 03/01/2020 9:51 PM CDT Rule Out COVID-19 05/05/2020 05/05/2020 05/06/2020 2:19 AM CDT Rule Out COVID-19 08/20/2020 08/20/2020 08/21/2020 10:31 PM CDT Rule Out COVID-19 10/27/2020 10/27/2020 11/17/2020 11:39 PM HAND MARKER Rule Out COVID-19 12/23/2020 12/24/2020 12/24/2020 2:08 AM HAND MARKER Rule Out COVID-19 01/24/2021 01/24/2021 01/24/2021 9:18 PM HAND MARKER Rule Out COVID-19 10/27/2022 10/27/2022 10/27/2022 3:19 AM HAND MARKER Influenza 10/27/2022 10/27/2022 11/03/2022 11:4 0 PM HAND MARKER Rule Out COVID-19 01/04/2023 01/04/2023 01/04/2023 8:32 PM HAND MARKER Rule Out C-difficile 01/04/2023 01/04/2023 023 1:46 AM HAND MARKER Rule Out C-difficile 01/07/2023 01/07/2023 023 8:18 PM HAND MARKER Rule Out C-difficile 06/04/2023 06/04/2023 023 11:28 AM CDT Rule Out Eleonora auris 06/04/2023 06/04/202306/07 9:24 AM CDT 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 03/08/2024 Rule Out COVID-19 11/10/2023 11/10/2023 11/10/2023 7:17 PM HAND MARKER Rule Out COVID-19 01/18/2024 01/18/2024 01/18/2024 8:53 PM HAND MARKER Rule Out COVID-19 01/28/2024 01/28/2024 01/28/2024 10:22 PM HAND MARKER Rule Out COVID-19 02/17/2024 02/17/2024 02/17/2024 5:07 PM CDT Assessment Noted Time PHQ-9 Depression Total Score: 1 08/16/20 18 4:58 PM CDT documented as of this encounter Care Teams Agronomy Professor Relationship Specialty Start Date End Date [facility] [place] [place] [address] PCP - General 05/01/18 09/24/20 Villa Santamaria PA-C [address] [address] PCP - Assigned PCP 05/01/18 01/31/19 No Ref-Primary, Physician PCP - General 09/25/20 09/26/[address] [facility] [place] [address] PCP - General 09/27/20 08/16/21 [place] [address] [address] [address] PCP - General Family Medicine 08/17/21 10/26/22 [place] [address] [place] [address] PCP - General Family Medicine 10/27/22 10/27/22 No Ref-Primary, Physician PCP - General 11/06/22 04/21/23 [place] [address] [address] [address] PCP - General Family Medicine 04/22/23 Villa Santamaria PA-C [address] [place] [address] Assigned PCP 05/01/18 08/19/19 [place] [address] [place] [address] Assigned PCP 08/20/19 03/16/20 [place] [address] [place] [address] Assigned PCP 03/17/20 03/15/21 Villa Santamaria PA-C [address] [place] [address] Assigned PCP 03/16/21 05/03/21 [place] [address] [place] [address] Assigned PCP 05/04/21 01/17/22 Sienna Guillermo DO [address] [facility] [address] [place] [address] Assigned Heart and Vascular Provider 09/21/21 10/04/21 Sandy Cox APRN CONCRETE POINTER [address] [place] [address] Assigned Heart and Vascular Provider 10/05/21 09/04/22 [place] [address] [place] [address] Assigned PCP 01/18/22 10/30/22 Bor[address]ctavioSiennaferDO [address] [place] [address] Assigned Heart and Vascular Provider 09/05/22 03/12/23 Mai Urena PA-C [address] [place] [address] Assigned PCP 10/31/22 01/22/23 [place] [address] [place] [address] Assigned Pain Medication Provider 12/07/22 [place] [address] [place] [address] Assigned PCP 01/23/23 [place] [address] [place] [address] Assigned Musculoskeletal Provider 01/23/23 Amy Montes De Oca, RN Clinic Healthcare Consulting Manager 05/13/2305/17 Gregorio Dalton PA-C [address] [place] [address] Assigned Surgical Provider 05/22/23 Kingsley Garcia MD [address] [place] [address] Assigned Heart and Vascular Provider 08/07/23 [place] [address] [place] [address] Family Medicine 09/10/23 Master Shea PA-C [address] [place] [address] Physician Envelope Sealing Machine Operator Gastroenterology 09/10/23 Allyssa Justice MD [facility] [address] [place] [address] Hematology & Oncology 12/10/23 Genaro Christian MD [address] [place] [address] Cardiovascular Disease 12/22/23 Master Shea PA-C [address] [place] [address] Assigned Gastroenterology Provider 12/23/23 Sienna Guillermo DO [address] [place] [address] Physician Cardiovascular Disease 01/18/24 Allyssa Justice MD [facility] [address] [place] [address] Assigned Cancer Care Provider 03/21/24 documented as of this encounter
--- OUTSIDE RECORDS SUMMARY | 2024-03-25 18:24 | XMS_ITS | Encounter Summary ---
Author Name Unknown Organization [place] Address [address] [place] [address] Care Team Providers Care Banquet Captain Name Role Phone Segundo Mcclelland MD Unavailable + [phone] Segundo Mcclelland MD Primary Care Provider + Sandy Cox APRN, CNP Unavailable + Segundo Mcclelland MD Unavailable + [phone] Sienna Guillermo DO Unavailable +[phone] Malia Dhillon MD Primary Care Provider [phone] No Ref-Primary, Physician Primary Care Provider Mai Urena PA-C Unavailable + [phone] Segundo Mcclelland MD Unavailable + [phone] Segundo Mcclelland MD Unavailable + [phone] Qamar Jackson MD Unavailable Segundo Mcclelland MD Primary Care Provider + Amy Montes De Oca RN Unavailable +[phone] Gregorio Dalton PA-C Unavailable +[phone] Kingsley Garcia MD Unavailable + [phone] Segundo Mcclelland MD Unavailable +[phone] Master Shea PA-C Unavailable Allyssa Justice MD Unavailable [phone] Genaro Christian MD Unavailable +[phone] Master Shea PA-C Unavailable Sienna Guillermo DO Unavailable +[phone] Allyssa Justice MD Unavailable [phone] Reason for Visit * Reason Onset Date Comments Refill Request 11/19/2021 Encounter Details Date Type Department Care Team (Late st Contact Info) Description 11/19/2021 Refill [facility] [address] [place] [address] [place] [address] [place] [address] Refill Request Social History Tobacco [...] AM CDT Office Visit [facility] [address] [place] [address] [place] [address] [address] [place] [place] [address] documented as of this encounter Visit Diagnoses Not on filedocumented in this encounter Additional Health Concerns Infection Onset Date Last Indicated Resolved Time Rule Out COVID-19 10/27/2022 10/27/2022 10/27/2022 3:19 AM TOOL PROCUREMENT COORDINATOR Influenza 10/27/2022 10/27/2022 11/03/2022 11:4 0 PM TOOL PROCUREMENT COORDINATOR Rule Out COVID-19 01/04/2023 01/04/2023 01/04/2023 8:32 PM TOOL PROCUREMENT COORDINATOR Rule Out C-difficile 01/04/2023 01/04/2023 023 1:46 AM TOOL PROCUREMENT COORDINATOR Rule Out C-difficile 01/07/2023 01/07/2023 023 8:18 PM TOOL PROCUREMENT COORDINATOR Rule Out C-difficile 06/04/2023 06/04/2023 023 11:28 AM CDT Rule Out Eleonora auris 06/04/2023 06/04/202306/07 9:24 AM CDT 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 03/08/2024 Rule Out COVID-19 11/10/2023 11/10/2023 11/10/2023 7:17 PM TOOL PROCUREMENT COORDINATOR Rule Out COVID-19 01/18/2024 01/18/2024 01/18/2024 8:53 PM TOOL PROCUREMENT COORDINATOR Rule Out COVID-19 01/28/2024 01/28/2024 01/28/2024 10:22 PM TOOL PROCUREMENT COORDINATOR Rule Out COVID-19 02/17/2024 02/17/2024 02/17/2024 5:07 PM CDT Assessment Noted Time PHQ-9 Depression Total Score: 1 08/16/20 18 4:58 PM CDT documented as of this encounter Care Teams Banquet Captain Relationship Specialty Start [place] [address] [place] [address] PCP - General Family Medicine 08/17/21 10/26/22 [place] [address] [place] [address] PCP - General Family Medicine 10/27/22 10/27/22 No Ref-Primary, Physician PCP - General 11/06/22 04/21/23 [place] [address] [address] [address] PCP - General Family Medicine 04/22/23 [place] [address] [address] [address] Assigned PCP 05/04/21 01/17/22 Sandy Cox APRN [facility] [address] [place] [address] Assigned Heart and Vascular Provider 10/05/21 09/04/22 [place] [address] [place] [address] Assigned PCP 01/18/22 10/30/22 Sienna Guillermo DO [address] [place] [address] Assigned Heart and Vascular Provider 09/05/22 03/12/23 Mai Urena PA-C [address] [place] [address] Assigned PCP 10/31/22 01/22/23 [place] [address] [address] [address] Assigned Pain Medication Provider 12/07/22 [place] [address] [address] [address] Assigned PCP 01/23/23 [place] [address] [place] [address] Assigned Musculoskeletal Provider 01/23/23 Amy Montes De Oca, RN Clinic Electrical Laboratory Technician 05/13/2305/17 Gregorio Dalton PA-C [address] [place] [address] Assigned Surgical Provider 05/22/23 Kingsley Garcia MD [address] [place] [address] Assigned Heart and Vascular Provider 08/07/23 [place] [address] [place] [address] Family Medicine 09/10/23 Master Shea PA-C [address] [place] [address] Physician Termination Clerk Gastroenterology 09/10/23 Allyssa Justice MD [facility] [address] [place] [address] Hematology & Oncology 12/10/23 Genaro Christian MD [address] [place] [address] Cardiovascular Disease 12/22/23 Master Shea PA-C [address] [place] [address] Assigned Gastroenterology Provider 12/23/23 Sienna Guillermo DO [address] [place] [address] Physician Cardiovascular Disease 01/18/24 Allyssa Justice MD [facility] [address] [place] [address] Assigned Cancer Care Provider 03/21/24 documented as of this encounter
--- OUTSIDE RECORDS SUMMARY | 2024-03-25 18:24 | XMS_ITS | Encounter Summary ---
Author Name Unknown Organization [place] Address [facility] [place] [address] Care Team Providers Care Workforce Development Vice President Name Role Phone [facility] Care Provide r Villa Santamaria PA-C Unavailable + Villa Santamaria PA-C Unavailable + Segundo Mcclelland MD Unavailable + Segundo Mcclelland MD Unavailable + No Ref-Primary, Physician Primary Care Provider [facility] Provide r + Villa Santamaria PA-C Unavailable + Segundo Mcclelland MD Unavailable + Segundo Mcclelland MD Primary Care Provider + Sienna Guillermo DO Unavailable + Sandy Cox APRN, CNP Unavailable + Segundo Mcclelland MD Unavailable + Sienna Guillermo DO Unavailable +[phone] Malia Dhillon MD Primary Care Provider +[phone] No Ref-Primary, Physician Primary Care Provider Mai UrenaC Unavailable Segundo Mcclelland MD Unavailable +[phone] Segundo Mcclelland MD Unavailable +[phone] Qamar Jackson MD Unavailable Segundo Mcclelland MD Primary Care Provider + Amy Montes De Oca RN Unavailable +[phone] Gregorio DaltonC Unavailable +[phone] Kingsley Garcia MD Unavailable Segundo Mcclelland MD Unavailable +[phone] Master Shea PA-C Unavailable Allyssa Justice MD Unavailable +[phone] Geanro Christian MD Unavailable +[phone] Master Shea PA-C Unavailable Sienna Guillermo DO Unavailable +[phone] Allyssa Justice MD Unavailable +[phone] Encounter Details Date Type Department Care Team (Late st Contact Info) Description 05/17/2018 MyC Medical Advice [address], [address] [place] [address] Villa Santamaria PA-C [address] [place] [address] Social History Tobacco Use Types [...] AM CDT Office Visit [facility] [address] [place] [address] [place] [address] [facility] [place] [address] documented as of this encounter Visit Diagnoses Not on filedocumented in this encounter Additional Health Concerns Infection Onset Date Last Indicated Resolved Time Rule Out COVID-19 02/29/2020 02/29/2020 03/01/2020 9:51 PM CDT Rule Out COVID-19 05/05/2020 05/05/2020 05/06/2020 2:19 AM CDT Rule Out COVID-19 08/20/2020 08/20/2020 08/21/2020 10:31 PM CDT Rule Out COVID-19 10/27/2020 10/27/2020 11/17/2020 11:39 PM MUSEUM TECHNICIAN Rule Out COVID-19 12/23/2020 12/24/2020 12/24/2020 2:08 AM MUSEUM TECHNICIAN Rule Out COVID-19 01/24/2021 01/24/2021 01/24/2021 9:18 PM MUSEUM TECHNICIAN Rule Out COVID-19 10/27/2022 10/27/2022 10/27/2022 3:19 AM MUSEUM TECHNICIAN Influenza 10/27/2022 10/27/2022 11/03/2022 11:4 0 PM MUSEUM TECHNICIAN Rule Out COVID-19 01/04/2023 01/04/2023 01/04/2023 8:32 PM MUSEUM TECHNICIAN Rule Out C-difficile 01/04/2023 01/04/2023 023 1:46 AM MUSEUM TECHNICIAN Rule Out C-difficile 01/07/2023 01/07/2023 023 8:18 PM MUSEUM TECHNICIAN Rule Out C-difficile 06/04/2023 06/04/2023 023 11:28 AM CDT Rule Out Eleonora auris 06/04/2023 06/04/202306/07 9:24 AM CDT 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 03/08/2024 Rule Out COVID-19 11/10/2023 11/10/2023 11/10/2023 7:17 PM MUSEUM TECHNICIAN Rule Out COVID-19 01/18/2024 01/18/2024 01/18/2024 8:53 PM MUSEUM TECHNICIAN Rule Out COVID-19 01/28/2024 01/28/2024 01/28/2024 10:22 PM MUSEUM TECHNICIAN Rule Out COVID-19 02/17/2024 02/17/2024 02/17/2024 5:07 PM CDT Assessment Noted Time PHQ-9 Depression Total Score: 3 04/30/20 18 7:18 AM CDT documented as of this encounter Care Teams Workforce Development Vice President Relationship Specialty Start Date End Date [facility] [place] [address] PCP - General 05/01/18 09/24/20 Villa [place]amaria [place]-C [address] [place] [address] PCP - Assigned PCP 05/01/18 01/31/19 No Ref-Primary, Physician PCP - General 09/25/20 09/26/20 [facility] [place] [address] PCP - General 09/27/20 08/16/21 [place] [address] [place] [address] PCP - General Family Medicine 08/17/21 10/26/22 [place] [address] [address] [place] [address] PCP - General Family Medicine 10/27/22 10/27/22 No Ref-Primary, Physician PCP - General 11/06/22 04/21/23 [place] [address] [place] [address] PCP - General Family Medicine 04/22/23 Villa Santamaria [place]-C [address] [place] [address] Assigned PCP 05/01/18 08/19/19 [place] [address] [place] [address] Assigned PCP 08/20/19 03/16/20 [place] [address] [place] [address] Assigned PCP 03/17/20 03/15/21 [place] Santamaria [place]-C [address] [place] [address] Assigned PCP 03/16/21 05/03/21 [place] [address] [place] [address] Assigned PCP 05/04/21 01/17/22 Sienna Guillermo DO [address] [place] [address] Assigned Heart and Vascular Provider 09/21/21 10/04/21 Sandy Cox APRN WOOD CAR BUILDER [address] [place] [address] Assigned Heart and Vascular Provider 10/05/21 09/04/22 [place] [address] [place] [address] Assigned PCP 01/18/22 10/30/22 Sienna Guillermo DO [address] [place] [address] Assigned Heart and Vascular Provider 09/05/22 03/12/23 Mai Urena PA-C [address] [facility] [place] [address] Assigned PCP 10/31/22 01/22/23 [place] [address] [place] [address] Assigned Pain Medication Provider 12/07/22 [place] [address] [place] [address] Assigned PCP 01/23/23 [place] [address] [place] [address] Assigned Musculoskeletal Provider 01/23/23 Amy Montes De Oca, RN Clinic [facility] Carver 05/13/2305/17 Gregorio Dalton PA-C [address] [place] [address] Assigned Surgical Provider 05/22/23 Kingsley Garcia MD [address] [place] [address] Assigned Heart and Vascular Provider 08/07/23 [place] [address] [place] [address] Family Medicine 09/10/23 Master Shea PA-C [address] [facility] [place] [address] Physician Coordinator Of Placement Gastroenterology 09/10/23 Allyssa Justice MD [facility] [address] [place] [address] Hematology & Oncology 12/10/23 Genaro Christian MD [address] [place] [address] 387525 Cardiovascular Disease 12/22/23 Master Shea PA-C [address] [place] [address] Assigned Gastroenterology Provider 12/23/23 Sienna Guillermo DO [address] [place] [address]46[address] Physician Cardiovascular Disease 01/18/24 Allyssa Justice MD [facility] [address] [place] [address]77[address] Assigned Cancer Care Provider 03/21/24 documented as of this encounter
--- OUTSIDE RECORDS SUMMARY | 2024-03-25 18:24 | XMS_ITS | Encounter Summary ---
Author Name Unknown Organization [place] Address [facility] [place] [address] Care Team Providers Care System Safety Engineer Name Role Phone Segundo Mcclelland MD Unavailable + [phone] [facility] Primary Care Provide r Villa Santamaria PA-C Unavailable + Segundo Mcclelland MD Unavailable + [phone] Segundo Mcclelland MD Primary Care Provider + Sienna Guillermo DO Unavailable +[phone] Sandy Cox APRN SERVICE ORDER TAKER Unavailable + Segundo Mcclelland MD Unavailable + [phone] Sienna Guillermo DO Unavailable +[phone] Malia Dhillon MD Primary Care Provider +[phone] No Ref-Primary, Physician Primary Care Provider aMi Urena PA-C Unavailable + [phone] Segundo Mcclelland MD Unavailable + [phone] Segundo Mcclelland MD Unavailable + [phone] Qamar Jackson MD Unavailable Segundo Mcclelland MD Primary Care Provider + Amy Montes De Oca RN Unavailable +[phone] Gregorio Dalton-C Unavailable +[phone] Kingsley Garcia MD Unavailable + [phone] Segundo Mcclelland MD Unavailable +[phone] Master Shea PA-C Unavailable Allyssa Justice MD Unavailable +[phone] Genaro Christian MD Unavailable [phone] Master SheaC Unavailable Sienna Guillermo DO Unavailable +[phone] Allyssa Justice MD Unavailable [phone] Reason for Visit * Reason Onset Date Comments MyChart Communication 10/30/2020 covid Encounter Details Date Type Department Care Team (Late st Contact Info) Description 10/30/[address] [address] [place] [address] [place] [address] MyChart Communication (covid) Social History Tobacco Use Types Packs/Day Years [...] Coronavirus / COVID-19? Yes 10/27/2020 1:02 PM SUBSCRIPTION AGENT documented as of this encounter Miscellaneous Notes * Telephone Encounter - Cherise Arredondo RN - 10/30/2020 1:43 PM CST Sent [place] response, recommend virtual visit if questions or concerns, see encounter yesterday Cherise Arredondo RN, BSN Message handled by CLINIC NURSE. CRIPTION AGENT documented in this encounter Plan of Treatment Upcoming Encounters Date Type Department Care Team (Late st Contact Info) Description 05/09/2024 10:00 AM CDT Office Visit [facility] [address] [place] [id number] [place] [address] [place] [address] documented as of this encounter Visit Diagnoses Not on filedocumented in this encounter Additional Health Concerns Infection Onset Date Last Indicated Resolved Time Rule Out COVID-19 10/27/2020 10/27/2020 11/17/2020 11:39 PM SUBSCRIPTION AGENT Rule Out COVID-19 12/23/2020 12/24/2020 12/24/2020 2:08 AM SUBSCRIPTION AGENT Rule Out COVID-19 01/24/2021 01/24/2021 01/24/2021 9:18 PM SUBSCRIPTION AGENT Rule Out COVID-19 10/27/2022 10/27/2022 10/27/2022 3:19 AM SUBSCRIPTION AGENT Influenza 10/27/2022 10/27/2022 11/03/2022 11:4 0 PM SUBSCRIPTION AGENT Rule Out COVID-19 01/04/2023 01/04/2023 01/04/2023 8:32 PM SUBSCRIPTION AGENT Rule Out C-difficile 01/04/2023 01/04/2023 023 1:46 AM SUBSCRIPTION AGENT Rule Out C-difficile 01/07/2023 01/07/2023 023 8:18 PM SUBSCRIPTION AGENT Rule Out C-difficile 06/04/2023 06/04/2023 023 11:28 AM CDT Rule Out Eleonora auris 06/04/2023 06/04/202306/07 9:24 AM CDT 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 03/08/2024 Rule Out COVID-19 11/10/2023 11/10/2023 11/10/2023 7:17 PM SUBSCRIPTION AGENT Rule Out COVID-19 01/18/2024 01/18/2024 01/18/2024 8:53 PM SUBSCRIPTION AGENT Rule Out COVID-19 01/28/2024 01/28/2024 01/28/2024 10:22 PM SUBSCRIPTION AGENT Rule Out COVID-19 02/17/2024 02/17/2024 02/17/2024 5:07 PM CDT Assessment Noted Time PHQ-9 Depression Total Score: 1 08/16/20 18 4:58 PM CDT documented as of this encounter Care Teams System Safety Engineer Relationship Specialty Start Date End Date [facility] [employer] [place] [address] PCP - General 09/27/20 08/16/21 [place] [address] [address] [place] [address] PCP - General Family Medicine 08/17/21 10/26/22 [place] [address] [place] [address] PCP - General Family Medicine 10/27/22 10/27/22 No Ref-Primary, Physician PCP - General 11/06/22 04/21/23 [place] [address] [address] [place] [address] PCP - General Family Medicine 04/22/23 [place] [address] [address] [place] [address] Assigned PCP 03/17/20 03/15/21 Villa Santamaria PA-C [address] [place] [address] Assigned PCP 03/16/21 05/03/21 [place] [address] [place] [address] Assigned PCP 05/04/21 01/17/22 Sienna Guillermo DO [address] [place] [address] Assigned Heart and Vascular Provider 09/21/21 10/04/21 Sandy Cox APRN CNP [facility] [place] [address] Assigned Heart and Vascular Provider 10/05/21 09/04/22 [place] [address] [place] [address] Assigned PCP 01/18/22 10/30/22 Sienna Guillermo DO [address] [place] [address] Assigned Heart and Vascular Provider 09/05/22 03/12/23 Mai Urena PA-C [address] [place] [address] Assigned PCP 10/31/22 01/22/23 [place] [address] [place] [address] Assigned Pain Medication Provider 12/07/22 [place] [address] [address] [address] Assigned PCP 01/23/23 [place] [address] [place] [address] Assigned Musculoskeletal Provider 01/23/23 Amy Montes De Oca, RN Clinic Paper Machine Backtender 05/13/2305/17 Gregorio Dalton PA-C [address] [place] [address] Assigned Surgical Provider 05/22/23 Kingsley Garcia MD [address] [place] [address] Assigned Heart and Vascular Provider 08/07/23 [place] [address] [address] [place] [address] Family Medicine 09/10/23 Master Shea PA-C [address] [place] [address] Physician Director Of Patient Care Gastroenterology 09/10/23 Allyssa Justice MD [facility] [address] [place] [address] Hematology & Oncology 12/10/23 Genaro Christian MD [address] [place], [place] 3[address] Cardiovascular Disease 12/22/23 Master Shea PA-C [address] [place] [address] Assigned Gastroenterology Provider 12/23/23 Sienna Guillermo DO [address] [place] [address] Physician Cardiovascular Disease 01/18/24 Allyssa Justice MD [facility] [address] [place] [address]87[address] Assigned Cancer Care Provider 03/21/24 documented as of this encounter
--- OUTSIDE RECORDS SUMMARY | 2024-03-25 18:24 | XMS_ITS | Encounter Summary ---
Author Name Unknown Organization [place] Address [facility] [place] [address] Care Team Providers Care Hop Farmer Name Role Phone Segundo Mcclelland MD Unavailable [phone] Segundo Mcclelland MD Primary Care Provider + Sienna Guillermo DO Unavailable +[phone] Sandy Cox APRN EVENTS ASSISTANT Unavailable + Segundo Mcclelland MD Unavailable +[phone] Sienna Guillermo DO Unavailable +[phone] Malia Dhillon MD Primary Care Provider +[phone] No Ref-Primary, Physician Primary Care Provider Mai Urena PA-C Unavailable + [phone] Segundo Mcclelland MD Unavailable + [phone] Segundo Mcclelland MD Unavailable +[phone] Qamar Jackson MD Unavailable Segundo Mcclelland MD Primary Care Provider + Amy Montes De Oca RN Unavailable +[phone] Gregorio Dalton PA-C Unavailable +[phone] Kingsley Garcia MD Unavailable + [phone] Segundo Mcclelland MD Unavailable +[phone] Master Shea PA-C Unavailable Allyssa Justice MD Unavailable [phone] Genaro Christian MD Unavailable [phone] Master Shea PA-C Unavailable Sienna Guillermo DO Unavailable +[phone] Allyssa Justice MD Unavailable [phone] Encounter Details Date Type Department Care Team (Late st Contact Info) Description 09/17/2021 MyC Medical Advice [facility] Heart [address] [place] [address] Amy James RN Social History Tobacco Use Types Packs/Day [...] Description 05/09/2024 10:00 AM CDT Office Visit [facility] [address] [place] [address] [place] [address] [place] [address] documented as of this encounter Visit Diagnoses Not on filedocumented in this encounter Additional Health Concerns Infection Onset Date Last Indicated Resolved Time Rule Out COVID-19 10/27/2022 10/27/2022 10/27/2022 3:19 AM SALES ACCOUNT ASSOCIATE Influenza 10/27/2022 10/27/2022 11/03/2022 11:4 0 PM SALES ACCOUNT ASSOCIATE Rule Out COVID-19 01/04/2023 01/04/2023 01/04/2023 8:32 PM SALES ACCOUNT ASSOCIATE Rule Out C-difficile 01/04/2023 01/04/2023 023 1:46 AM SALES ACCOUNT ASSOCIATE Rule Out C-difficile 01/07/2023 01/07/2023 023 8:18 PM SALES ACCOUNT ASSOCIATE Rule Out C-difficile 06/04/2023 06/04/2023 023 11:28 AM CDT Rule Out Eleonora auris 06/04/2023 06/04/202306/07 9:24 AM CDT 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 03/08/2024 Rule Out COVID-19 11/10/2023 11/10/2023 11/10/2023 7:17 PM SALES ACCOUNT ASSOCIATE Rule Out COVID-19 01/18/2024 01/18/2024 01/18/2024 8:53 PM SALES ACCOUNT ASSOCIATE Rule Out COVID-19 01/28/2024 01/28/2024 01/28/2024 10:22 PM SALES ACCOUNT ASSOCIATE Rule Out COVID-19 02/17/2024 02/17/2024 02/17/2024 5:07 PM CDT Assessment Noted Time PHQ-9 Depression Total Score: 1 08/16/20 18 4:58 PM CDT documented as of this encounter Care Teams Hop Farmer Relationship Specialty Start [place] [address] [address] [address] PCP - General Family Medicine 08/17/21 10/26/22 [place] [address] [place] [address] PCP - General Family Medicine 10/27/22 10/27/22 No Ref-Primary, Physician PCP - General 11/06/22 04/21/23 [place] [address] [address] [address] PCP - General Family Medicine 04/22/23 [place] [address] [place] [address] Assigned PCP 05/04/21 01/17/22 Sienna Guillermo DO [address] [place] [address] Assigned Heart and Vascular Provider 09/21/21 10/04/21 Sandy Cox APRN CNP [address] [place] [address] Assigned Heart and Vascular Provider 10/05/21 09/04/22 [place] [address] [address] [place] [address] Assigned PCP 01/18/22 10/30/22 Sienna Guillermo DO [address] [place] [address] Assigned Heart and Vascular Provider 09/05/22 03/12/23 Mai Urena PA-C [address] [place] [address] Assigned PCP 10/31/22 01/22/23 [place] [address] [place] [address] Assigned Pain Medication Provider 12/07/22 [place] [address] [place] [address] Assigned PCP 01/23/23 [place] [address] [place] [address] Assigned Musculoskeletal Provider 01/23/23 Amy Montes De Oca RN Clinic Press Room Supervisor 05/13/2305/17 Gregorio Dalton PA-C [address] [place] [address] Assigned Surgical Provider 05/22/23 Kingsley Garcia MD [address] [place] [address] Assigned Heart and Vascular Provider 08/07/23 [place] [address] [place] [address] Family Medicine 09/10/23 Master Shea PA-C [address] [place] [address] Physician Tree Warden Gastroenterology 09/10/23 Allyssa Justice MD [facility] [address] [place] [address] Hematology & Oncology 12/10/23 Genaro Christian MD [address] [place], [place] [address] Cardiovascular Disease 12/22/23 Master Shea PA-C [address] [place] [address] Assigned Gastroenterology Provider 12/23/23 Sienna Guillermo DO [address] [place] [address]266[address] Physician Cardiovascular Disease 01/18/24 Allyssa Justice MD [facility] [address] [place] [address] Assigned Cancer Care Provider 03/21/24 documented as of this encounter
--- OUTSIDE RECORDS SUMMARY | 2024-03-25 18:24 | XMS_ITS | Encounter Summary ---
Author Name Unknown Organization [place] Address [facility] [place] [address] Care Team Providers Care Capital Project Engineer Name Role Phone Nora Taylor [facility] Primary Care Provider None Primary Care Provider Unavailabl e Jennifer Escobedo MD Primary Care Provider [phone] Nimo Wetzel Primary Care Provider [phone] Kin Waite MD Primary Care Provider [phone] [facility] Primary Care Prov ider Uyen Palm MD Primary Care Provider [phone] Milady Oakes MD Primary Care Provider + [facility] Primary Care Provider [facility] Primary Care Pro vider No Ref-Primary, Physician Primary Care Provider [facility] Primary Care Provide r Villa Santamaria PA-C Unavailable + Villa Santamaria PA-C Unavailable + Segundo Mcclelland MD Unavailable + Segundo Mcclelland MD Unavailable + No Ref-Primary, Physician Primary Care Provider [facility] Primary Care Provide r Villa SantamariaC Unavailable + Segundo Mcclelland MD Unavailable + Segundo Mcclelland MD Primary Care Provider + Sienna Guillermo DO Unavailable + Sandy Cox APRN STAFF SCIENTIST Unavailable + Segundo Mcclelland MD Unavailable + Sienna Guillermo DO Unavailable + Malia Dhillon MD Primary Care Provider [phone] No Ref-Primary, Physician Primary Care Provider Mai Urena-C Unavailable [phone] Segundo Mcclelland MD Unavailable + Segundo Mcclelland MD Unavailable + Qamar Jackson MD Unavailable Segundo Mcclelland MD Primary Care Provider + Amy Montes De Oca RN Unavailable +[phone] Gregorio Dalton-C Unavailable [phone] Kingsley Garcia MD Unavailable [phone] Segundo Mcclelland MD Unavailable + Master SheaC Unavailable Allyssa Justice MD Unavailable [phone] Genaro Christian MD Unavailable +[phone] Master Shea-C Unavailable Sienna Guillermo DO Unavailable + Allyssa Justice MD Unavailable [phone] Reason for Visit * Reason Onset Date Comments Refill Request 03/15/2009 FLEXERIL & PERCO CET Encounter Details Date Type Department Care Team (Late st Contact Info) Description [facility] [address] [facility] [place] [phone] Huan Knox MD [address] [facility] [place] [address] Refill Request (FLEXERIL & PERCOCET) Social History Tobacco Use Types Packs/Day Years [...] Miscellaneous Notes * Telephone Encounter - Uyen Vargas - 03/15/2009 1:12 PM CDT She just got percocet in ER 4 days ago. Make sure she is scheduled with Dr. Knox soon. * Telephone Encounter - Jeovanny Dominguez - 03/15/2009 10:14 AM CDT LAST FILLED ON 03/07/09 PLEASE WALK OVER TO PHARMACY AND WE WILL CALL WHEN READY JEOVANNY DOMINGUEZ-NAIL MACHINE OPERATOR PT HAS UPCOMING APPT WITH DR KNOX TO DISCUSS CURRENT ISSUES documented in this encounter Plan of Treatment Upcoming Encounters Date Type Department Care Team (Late st Contact Info) Description 05/09/2024 10:00 AM CDT Office Visit [facility] [address] [place] [address] [place] [address] [facility] [place] [address] documented as of this encounter Visit Diagnoses Diagnosis Lumbar back pain- Primary Lumbago documented in this encounter Additional Health Concerns Infection Onset Date Last Indicated Resolved Time Rule Out COVID-19 02/29/2020 02/29/2020 03/01/2020 9:51 PM CDT Rule Out COVID-19 05/05/2020 05/05/2020 05/06/2020 2:19 AM CDT Rule Out COVID-19 08/20/2020 08/20/2020 08/21/2020 10:31 PM CDT Rule Out COVID-19 10/27/2020 10/27/2020 11/17/2020 11:39 PM TECHNICAL PUBLICATIONS WRITER Rule Out COVID-19 12/23/2020 12/24/2020 12/24/2020 2:08 AM TECHNICAL PUBLICATIONS WRITER Rule Out COVID-19 01/24/2021 01/24/2021 01/24/2021 9:18 PM TECHNICAL PUBLICATIONS WRITER Rule Out COVID-19 10/27/2022 10/27/2022 10/27/2022 3:19 AM TECHNICAL PUBLICATIONS WRITER Influenza 10/27/2022 10/27/2022 11/03/2022 11:4 0 PM TECHNICAL PUBLICATIONS WRITER Rule Out COVID-19 01/04/2023 01/04/2023 01/04/2023 8:32 PM TECHNICAL PUBLICATIONS WRITER Rule Out C-difficile 01/04/2023 01/04/2023 023 1:46 AM TECHNICAL PUBLICATIONS WRITER Rule Out C-difficile 01/07/2023 01/07/2023 023 8:18 PM TECHNICAL PUBLICATIONS WRITER Rule Out C-difficile 06/04/2023 06/04/2023 023 11:28 AM CDT Rule Out Eleonora auris 06/04/2023 06/04/202306/07 9:24 AM CDT 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 03/08/2024 Rule Out COVID-19 11/10/2023 11/10/2023 11/10/2023 7:17 PM TECHNICAL PUBLICATIONS WRITER Rule Out COVID-19 01/18/2024 01/18/2024 01/18/2024 8:53 PM TECHNICAL PUBLICATIONS WRITER Rule Out COVID-19 01/28/2024 01/28/2024 01/28/2024 10:22 PM TECHNICAL PUBLICATIONS WRITER Rule Out COVID-19 02/17/2024 02/17/2024 02/17/2024 5:07 PM CDT documented as of this encounter Care Teams Capital Project Engineer Relationship Specialty Start Date End Date Taylor Cardozo APRN STAFF SCIENTIST [address] [place] [address] PCP - General 01/11/04 09/22/10 None PCP - General 09/23/10 09/02/11 Jennifer Escobedo MD [address] [place] [id number] PCP - General panama hat smearer 09/03/11 11/01/11 Nimo Wetzel [address] [address] PCP - General 11/02/11 04/17/12 Kin Waite MD [address] [address] PCP - General panama hat smearer 04/18/12 11/22/12 [facility], [address] [phone] PCP - General 11/23/12 11/25/13 Uyen Palm MD [address] [place] [id number] PCP - General panama hat smearer 11/26/13 09/02/14 Milady Oakes MD [address] [address] PCP - General Family Practice 09/03/14 09/20/15 [facility] [address] [place] [address] PCP - General 09/21/15 07/10/17 [facility] [address] [place] [address] PCP - General 07/11/17 01/19/18 No Ref-Primary, Physician PCP - General 01/20/18 04/30/18 [facility] [place] [address] PCP - General 05/01/18 09/24/20 Villa Santamaria PA-C [address] [place] [address] PCP - Assigned PCP 05/01/18 01/31/19 No Ref-Primary, Physician PCP - General 09/25/20 09/26/20 [facility] [place] [address] PCP - General 09/27/20 08/16/21 [place] [address] [place] [address] PCP - General Family Medicine 08/17/21 10/26/22 [place] [address] [place] [address] PCP - General Family Medicine 10/27/22 10/27/22 No Ref-Primary, Physician PCP - General 11/06/22 04/21/23 [place] [address] [place] [address] PCP - General Family Medicine 04/22/23 Villa Santamaria PA-C [address] [place] [address] Assigned PCP 05/01/18 08/19/19 [place] [address] [place] [address] Assigned PCP 08/20/19 03/16/20 [place] [address] [place] [address] Assigned PCP 03/17/20 03/15/21 Villa Santamaria PA-C [address] [place] [address] Assigned PCP 03/16/21 05/03/21 [place] [address] [place] [address] Assigned PCP 05/04/21 01/17/22 Sienna Guillermo DO [address] [place] [address] Assigned Heart and Vascular Provider 09/21/21 10/04/21 Sandy Cox, SPEECH AND LANGUAGE ASSISTANT STAFF SCIENTIST [address] [place] [address] Assigned Heart and Vascular Provider 10/05/21 09/04/22 [place] [address] [place] [address] Assigned PCP 01/18/22 10/30/22 Sienna Guillermo DO [address] [place] [address] Assigned Heart and Vascular Provider 09/05/22 03/12/23 Mai Urena PA-C [address] [place], [place] [address] Assigned PCP 10/31/22 01/22/23 [place] [address] [place] [address] Assigned Pain Medication Provider 12/07/22 [place] [address] [place] [address] Assigned PCP 01/23/23 [place] [address] [place] [address] Assigned Musculoskeletal Provider 01/23/23 Amy Montes De Oca, RN Clinic Drying Can Worker 05/13/2305/17 Gregorio Dalton PA-C [address] [place] [address] Assigned Surgical Provider 05/22/23 Kingsley Garcia MD [address] [place] [address] Assigned Heart and Vascular Provider 08/07/23 [place] [address] [place] [address] Family Medicine 09/10/23 Master Shea PA-C [address] [facility] [place] [address] Physician Turkey Cleaner Gastroenterology 09/10/23 Allyssa Justice MD [facility] [address] [place] [address] Hematology & Oncology 12/10/23 Genaro Christian MD [address] [place] [address] Cardiovascular Disease 12/22/23 Master Shea PA-C [address] [facility] [place] [address] Assigned Gastroenterology Provider 12/23/23 Sienna Guillermo DO [address] [place] [address] Physician Cardiovascular Disease 01/18/24 Allyssa Justice MD [facility] [address] [place] [address] Assigned Cancer Care Provider 03/21/24 documented as of this encounter
--- OUTSIDE RECORDS SUMMARY | 2024-03-25 18:24 | XMS_ITS | Encounter Summary ---
Author Name Unknown Organization [place] Address [facility] [place] [address] Care Team Providers Care Patient Admitting Clerk Name Role Phone [place] Taylor [facility] Primary Care Provider None Primary Care Provider Unavailabl e Jeninfer Escobedo MD Primary Care Provider [phone] Nimo Wetzel Primary Care Provider [phone] Kin Waite MD Primary Care Provider [phone] [facility] Primary Care Prov ider Uyen Palm MD Primary Care Provider [phone] Milady Oakes MD Primary Care Provider + [facility] Primary Care Provider [facility] Primary Care Pro vider No Ref-Primary, Physician Primary Care Provider [facility] Primary Care Provide r Villa Santamaria PA-C Unavailable + Villa Santamaria PA-C Unavailable + Segundo Mcclelland MD Unavailable + Segundo Mcclelland MD Unavailable + No Ref-Primary, Physician Primary Care Provider [facility] Primary Care Provide r Villa SantamariaC Unavailable + Segundo Mcclelland MD Unavailable + Segundo Mcclelland MD Primary Care Provider + Sienna Guillermo DO Unavailable + Sandy Cox APRN FORM SETTER Unavailable + Segundo Mcclelland MD Unavailable + Sienna Guillermo DO Unavailable + Malia Dhillon MD Primary Care Provider [phone] No Ref-Primary, Physician Primary Care Provider Mai Urena-C Unavailable [phone] Segundo Mcclelland MD Unavailable + Segundo Mcclelland MD Unavailable + Qamar Jackson MD Unavailable Segundo Mcclelland MD Primary Care Provider + Amy Montes De Oca RN Unavailable [phone] Gregorio Dalton-C Unavailable [phone] Kingsley Garcia MD Unavailable [phone] Segundo Mcclelland MD Unavailable + Master SheaC Unavailable Allyssa Justice MD Unavailable [phone] Genaro Christian MD Unavailable +[phone] Master Shea-C Unavailable Sienna Guillermo DO Unavailable + Allyssa Justice MD Unavailable [phone] Encounter Details Date Type Department Care Team (Late st Contact Info) Description 09/26/[address] [place] [address] Bess Brito MD [address] [place] [address] [facility] Social History Tobacco Use Types Packs/Day Years [...] 10:00 AM CDT Office Visit [facility] [address] [place] [phone] [place] [address] [place] [address] documented as of this encounter Visit Diagnoses Diagnosis [facility] Primary documented in this encounter Additional Health Concerns Infection Onset Date Last Indicated Resolved Time Rule Out COVID-19 02/29/2020 02/29/2020 03/01/2020 9:51 PM CDT Rule Out COVID-19 05/05/2020 05/05/2020 05/06/2020 2:19 AM CDT Rule Out COVID-19 08/20/2020 08/20/2020 08/21/2020 10:31 PM CDT Rule Out COVID-19 10/27/2020 10/27/2020 11/17/2020 11:39 PM PLUMBING TECHNICIAN Rule Out COVID-19 12/23/2020 12/24/2020 12/24/2020 2:08 AM PLUMBING TECHNICIAN Rule Out COVID-19 01/24/2021 01/24/2021 01/24/2021 9:18 PM PLUMBING TECHNICIAN Rule Out COVID-19 10/27/2022 10/27/2022 10/27/2022 3:19 AM PLUMBING TECHNICIAN Influenza 10/27/2022 10/27/2022 11/03/2022 11:4 0 PM PLUMBING TECHNICIAN Rule Out COVID-19 01/04/2023 01/04/2023 01/04/2023 8:32 PM PLUMBING TECHNICIAN Rule Out C-difficile 01/04/2023 01/04/2023 023 1:46 AM PLUMBING TECHNICIAN Rule Out C-difficile 01/07/2023 01/07/2023 023 8:18 PM PLUMBING TECHNICIAN Rule Out C-difficile 06/04/2023 06/04/2023 023 11:28 AM CDT Rule Out Eleonora auris 06/04/2023 06/04/202306/07 9:24 AM CDT 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 03/08/2024 Rule Out COVID-19 11/10/2023 11/10/2023 11/10/2023 7:17 PM PLUMBING TECHNICIAN Rule Out COVID-19 01/18/2024 01/18/2024 01/18/2024 8:53 PM PLUMBING TECHNICIAN Rule Out COVID-19 01/28/2024 01/28/2024 01/28/2024 10:22 PM PLUMBING TECHNICIAN Rule Out COVID-19 02/17/2024 02/17/2024 02/17/2024 5:07 PM CDT documented as of this encounter Care Teams Patient Admitting Clerk Relationship Specialty Start Date End Date Taylor Cardozo APRN FORM SETTER [address] [place] [address] PCP - General 01/11/04 09/22/10 None PCP - General 09/23/10 09/02/11 Jennifer Escobedo MD [address] [facility] [address] [place] [address] PCP - General dairy technologist 09/03/11 11/01/11 Nimo Wetzel [address] [place] [address] PCP - General 11/02/11 04/17/12 Kin Waite MD [address] [place] [address] PCP - General dairy technologist 04/18/12 11/22/12 Practice, [address], [facility] [address] [place] [phone] PCP - General 11/23/12 11/25/13 Uyen Palm MD [address] [place] [address] [address] [place], [place] [phone] PCP - General dairy technologist 11/26/13 09/02/14 Milady Oakes MD [facility] [address] [place] [address] PCP - General Family Practice 09/03/14 09/20/15 [facility] [address] [facility] [place] [address] PCP - General 09/21/15 07/10/17 [facility] [address] [place] [address] PCP - General 07/11/17 01/19/18 No Ref-Primary, Physician PCP - General 01/20/18 04/30/18 [facility], [address] [id number] PCP - General 05/01/18 09/24/20 Villa Santamaria PA-C [address] [place] [address] PCP - Assigned PCP 05/01/18 01/31/19 No Ref-Primary, Physician PCP - General 09/25/20 09/26/[address] [address] PCP - General 09/27/20 08/16/21 [place] [address] [place] [address] PCP - General Family Medicine 08/17/21 10/26/22 [place] [address] [place] [address] PCP - General Family Medicine 10/27/22 10/27/22 No Ref-Primary, Physician PCP - General 11/06/22 04/21/23 [place] [address] [place] [place] [address] PCP - General Family Medicine 04/22/23 Villa Santamaria PA-C [address] [place] [address] Assigned PCP 05/01/18 08/19/19 [place] [address] [place] [address] Assigned PCP 08/20/19 03/16/20 [place] [address] [place] [address] Assigned PCP 03/17/20 03/15/21 Villa Santamaria PA-C [address] [place] [address] Assigned PCP 03/16/21 05/03/21 [place] [address] [place] [address] Assigned PCP 05/04/21 01/17/22 Sienna Guillermo DO [address] [place] [address] Assigned Heart and Vascular Provider 09/21/21 10/04/21 Sandy Cox APRN CNP [address] [place] [address] Assigned Heart and Vascular Provider 10/05/21 09/04/22 [place] [address] [place] [address] Assigned PCP 01/18/22 10/30/22 Sienna Guillermo DO [address] [place] [address] Assigned Heart and Vascular Provider 09/05/22 03/12/23 Mai Urena PA-C [address] [place] [address] Assigned PCP 10/31/22 01/22/23 [place] [address] [place] [address] Assigned Pain Medication Provider 12/07/22 [place] [address] [place] [address] Assigned PCP 01/23/23 [place] [address] [place] [address] Assigned Musculoskeletal Provider 01/23/23 Amy Montes De Oca RN Clinic Punch Press Operator Helper 05/13/2305/17 Gregorio Dalton PA-C [address] [place] [address] Assigned Surgical Provider 05/22/23 Kingsley Garcia MD [address] [place] [address] Assigned Heart and Vascular Provider 08/07/23 [place] [address] [place] [address] Family Medicine 09/10/23 Master Shea PA-C [address] [place] [address] Physician Sweatband Maker Gastroenterology 09/10/23 Allyssa Justice MD [facility] [address] [place] [address] Hematology & Oncology 12/10/23 Genaro Christian MD [address] [place], [place] [address] Cardiovascular Disease 12/22/23 Master Shea PA-C [address] [place] [address] Assigned Gastroenterology Provider 12/23/23 Sienna Guillermo DO [address] [place] [address] Physician Cardiovascular Disease 01/18/24 Allyssa Justice MD [facility] [address] [place] [address] Assigned Cancer Care Provider 03/21/24 documented as of this encounter
--- OUTSIDE RECORDS SUMMARY | 2024-03-25 18:24 | XMS_ITS | Encounter Summary ---
Author Name Unknown Organization [place] Address [facility] [place] [address] Care Team Providers Care Pull Socket Assembler Name Role Phone [employer] [facility] Primary Care Provider None Primary Care Provider Unavailabl e Jennifer Escobedo MD Primary Care Provider [phone] Nimo Wetzel Primary Care Provider [phone] Kin Waite MD Primary Care Provider [phone] [facility] Primary Care Prov ider Uyen Palm MD Primary Care Provider [phone] Milady Oakes MD Primary Care Provider + [facility] Primary Care Provider [facility] Primary Care Pro vider No Ref-Primary, Physician Primary Care Provider [facility] Primary Care Provide r Villa Santamaria PA-C Unavailable + Villa Santamaria PA-C Unavailable + Segundo Mcclelland MD Unavailable + Segundo Mcclelland MD Unavailable + No Ref-Primary, Physician Primary Care Provider [facility] Primary Care Provide r Villa SantamariaC Unavailable + Segundo Mcclelland MD Unavailable + Segundo Mcclelland MD Primary Care Provider + Sienna Guillermo DO Unavailable + Sandy Cox APRN BUSINESS CONTROL MANAGER Unavailable + Segundo Mcclelland MD Unavailable + Sienna Guillermo DO Unavailable + Malia Dhillon MD Primary Care Provider [phone] No Ref-Primary, Physician Primary Care Provider Mai Urena-C Unavailable [phone] Segundo Mcclelland MD Unavailable + Segundo Mcclelland MD Unavailable + Qamar Jackson MD Unavailable Segundo Mcclelland MD Primary Care Provider + Amy Montes De Oca RN Unavailable [phone] Gregorio Dalton-C Unavailable [phone] Kingsley Garcia MD Unavailable [phone] Segundo Mcclelland MD Unavailable + Master SheaC Unavailable Allyssa Justice MD Unavailable [phone] Genaro Christian MD Unavailable [phone] Master Shea-C Unavailable Sienna Guillermo DO Unavailable + Allyssa Justice MD Unavailable [phone] Encounter Details Date Type Department Care Team (Late st Contact Info) Description 09/08/[address] [place] [phone] Bess Brito MD [address] [place] [address] EMERGENCY MED SERVICES Social History Tobacco Use Types Packs/Day Years [...] CDT Office Visit [facility] [address] [place] [phone] [place] [address] [place] [address] documented as of this encounter Visit Diagnoses Diagnosis EMERGENCY MED SERVICES- Primary documented in this encounter Additional Health Concerns Infection Onset Date Last Indicated Resolved Time Rule Out COVID-19 02/29/2020 02/29/2020 03/01/2020 9:51 PM CDT Rule Out COVID-19 05/05/2020 05/05/2020 05/06/2020 2:19 AM CDT Rule Out COVID-19 08/20/2020 08/20/2020 08/21/2020 10:31 PM CDT Rule Out COVID-19 10/27/2020 10/27/2020 11/17/2020 11:39 PM VOTING MACHINE MECHANIC Rule Out COVID-19 12/23/2020 12/24/2020 12/24/2020 2:08 AM VOTING MACHINE MECHANIC Rule Out COVID-19 01/24/2021 01/24/2021 01/24/2021 9:18 PM VOTING MACHINE MECHANIC Rule Out COVID-19 10/27/2022 10/27/2022 10/27/2022 3:19 AM VOTING MACHINE MECHANIC Influenza 10/27/2022 10/27/2022 11/03/2022 11:4 0 PM VOTING MACHINE MECHANIC Rule Out COVID-19 01/04/2023 01/04/2023 01/04/2023 8:32 PM VOTING MACHINE MECHANIC Rule Out C-difficile 01/04/2023 01/04/2023 023 1:46 AM VOTING MACHINE MECHANIC Rule Out C-difficile 01/07/2023 01/07/2023 023 8:18 PM VOTING MACHINE MECHANIC Rule Out C-difficile 06/04/2023 06/04/2023 023 11:28 AM CDT Rule Out Eleonora auris 06/04/2023 06/04/202306/07 9:24 AM CDT 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 03/08/2024 Rule Out COVID-19 11/10/2023 11/10/2023 11/10/2023 7:17 PM VOTING MACHINE MECHANIC Rule Out COVID-19 01/18/2024 01/18/2024 01/18/2024 8:53 PM VOTING MACHINE MECHANIC Rule Out COVID-19 01/28/2024 01/28/2024 01/28/2024 10:22 PM VOTING MACHINE MECHANIC Rule Out COVID-19 02/17/2024 02/17/2024 02/17/2024 5:07 PM CDT documented as of this encounter Care Teams Pull Socket Assembler Relationship Specialty Start Date End Date Taylor Cardozo APRN BUSINESS CONTROL MANAGER [address] [place] [address] PCP - General 01/11/04 09/22/10 None PCP - General 09/23/10 09/02/11 Jennifer Escobedo MD [address] [facility] [address] [place] [address] PCP - General detacker 09/03/11 11/01/11 Nimo Wetzel [address] [place] [address] PCP - General 11/02/11 04/17/12 Kin Waite MD [address] [place] [address] PCP - General detacker 04/18/12 11/22/12 Practice, [address], [facility] [address] [place] [phone] PCP - General 11/23/12 11/25/13 Uyen Palm MD [address] [place] [address] [address] [place], [place] [phone] PCP - General detacker 11/26/13 09/02/14 Milady Oakes MD [facility] [address] [place] [address] PCP - General Family Practice 09/03/14 09/20/15 [facility] [address] [facility] [place] [address] PCP - General 09/21/15 07/10/17 [facility] [address] [place] [address] PCP - General 07/11/17 01/19/18 No Ref-Primary, Physician PCP - General 01/20/18 04/30/18 [facility], [address] [phone] PCP - General 05/01/18 09/24/20 Villa Santamaria PA-C [address] [place] [address] PCP - Assigned PCP 05/01/18 01/31/19 No Ref-Primary, Physician PCP - General 09/25/20 09/26/[address] [address] PCP - General 09/27/20 08/16/21 [place] [address] [place] [address] PCP - General Family Medicine 08/17/21 10/26/22 [place] [address] [place] [address] PCP - General Family Medicine 10/27/22 10/27/22 No Ref-Primary, Physician PCP - General 11/06/22 04/21/23 [place] [address] [place] [address] PCP - General Family Medicine 04/22/23 Villa Santamaria PA-C [address] [place] [place] [address] Assigned PCP 05/01/18 08/19/19 [place] [address] [place] [address] Assigned PCP 08/20/19 03/16/20 [place] [address] [place] [address] Assigned PCP 03/17/20 03/15/21 Villa Santamaria PA-C [address] [place] [address] Assigned PCP 03/16/21 05/03/21 [place] [address] [place] [address] Assigned PCP 05/04/21 01/17/22 Sienna Guillermo DO [address] [place] [address] Assigned Heart and Vascular Provider 09/21/21 10/04/21 Sandy Cox APRN CNP [address] [place] [address] Assigned Heart and Vascular Provider 10/05/21 09/04/22 [place] [address] [place] [address] Assigned PCP 01/18/22 10/30/22 Sienna Guillermo DO [address] [place] [address] Assigned Heart and Vascular Provider 09/05/22 03/12/23 Mai Urena PA-C [address] [place] [place] [address] Assigned PCP 10/31/22 01/22/23 [place] [address] [place] [address] Assigned Pain Medication Provider 12/07/22 [place] [address] [place] [address] Assigned PCP 01/23/23 [place] [address] [place] [address] Assigned Musculoskeletal Provider 01/23/23 Amy Montes De Oca RN Clinic Learning Consultant 05/13/2305/17 Gregorio Dalton PA-C [address] [place] [place] [address] Assigned Surgical Provider 05/22/23 Kingsley Garcia MD [address] [place] [address] Assigned Heart and Vascular Provider 08/07/23 [place] [address] [address] [place] [address] Family Medicine 09/10/23 Master Shea PA-C [address] [place] [address] Physician Magazine Writer Gastroenterology 09/10/23 Allyssa Justice MD [facility] [address] [place] [address] Hematology & Oncology 12/10/23 Genaro Christian MD [address] [place], [place] [address] Cardiovascular Disease 12/22/23 Master Shea PA-C [address] [place] [address] Assigned Gastroenterology Provider 12/23/23 Sienna Guillermo DO [address] [place] [address] Physician Cardiovascular Disease 01/18/24 Allyssa Justice MD [facility] [address] [place] [address] Assigned Cancer Care Provider 03/21/24 documented as of this encounter
[2024-03-25 18:25] LABS: Alanine Aminotransferase* 45 U/L (4-35); Alkaline Phosphatase* 243 U/L (40-150); Blood Urea Nitrogen* 8 mg/dL (5-24); Glucose* 100 mg/dL (60-115); Total Protein* 8.4 g/dL (6.0-8.3)
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
--- OUTSIDE RECORDS SUMMARY | 2024-03-25 18:25 | XMS_ITS ---
Author Name Unknown Organization [place] Address [facility] [place] [address] Care Team Providers Care Volunteer Manager Name Role Phone Segundo Mcclelland MD Unavailable [phone] Segundo Mcclelland MD Unavailable [phone] Qamar Jackson MD Unavailable Segundo Mcclelland MD Primary Care Provider + Gregorio Dalton-C Unavailable [phone] Kingsley Garcia MD Unavailable + [phone] Segundo Mcclelland MD Unavailable [phone] Master Shea-Shirley Unavailable Allyssa Justice MD Unavailable [phone] Genaro Christian MD Unavailable [phone] Master Shea-C Unavailable Sienna Guillermo DO Unavailable [phone] Allyssa Justice MD Unavailable [phone] Transitional Care Management Status:Closed (Closed) Start date:01/11/2024 Enrollment date:01/11/2024 End date:01/25/2024 Close reason:Goals met Continued Care and Services Coordination
--- OUTSIDE RECORDS SUMMARY | 2024-03-25 18:25 | XMS_ITS | Encounter Summary ---
Author Name Unknown Organization [facility] Address [address] [address] Phone Care Team Providers Care Stem Cleaning Machine Feeder Name Role Phone Unavailable Primary Care Provider Unavailabl e Encounter Details Date Type Department Care Team (Late st Contact Info) Description 03/20/2024 Telephone [employer] [address] [facility] [address] [place] [address] Anna Ca, DONNA Social History Tobacco Use Types Packs/Day Years Used Date Smoking Tobacco: Never Assessed Sex and Gender Information Value Date Recorded Sex Assigned at Not on file Gender Identity Not on file Sexual Orientation Not on file documented as of this encounter Miscellaneous Notes * Telephone Encounter - Anna Ca RN - 03/20/2024 11:02 AM CDT Sandi called to report that she was seen at ER for her port being clogged. She was expecting a call from IR today. Called to provide phone number for nurse at [facility]. documented in this encounter Plan of Treatment Not on file documented as of this encounter Visit Diagnoses Not on filedocumented in this encounter
--- OUTSIDE RECORDS SUMMARY | 2024-03-25 18:25 | XMS_ITS | Encounter Summary ---
Author Name Unknown Organization [facility] Address [address] [place] [address] Care Team Providers Care Natural Gas Basis Trader Name Role Phone Jatin Esteban PA-C Primary Care Provider + [phone] Encounter Details Date Type Department Care Team (Late st Contact Info) Description 12/01/2012 Outside Hospital External to [facility] D/C SUMMARY Social History Tobacco Use Types Packs/Day Years Used Date Smoking Tobacco: Never Alcohol Use Standard Drinks/Week Comments Yes 0 (1 standard drink = 0.6 oz pur e alcohol) occassional Sex and Gender Information Value Date Recorded Sex Assigned at Not on file Gender Identity Not on file Sexual Orientation Not on file documented as of this encounter Progress Notes * [place] PROVIDER - 12/01/2012 12:00 AM CST GGER documented in this encounter Plan of Treatment Not on file documented as of this encounter Visit Diagnoses Not on filedocumented in this encounter Care Teams Natural Gas Basis Trader Relationship Specialty Start Date End Date Jatin Esteban PA-C [address] [place] [address] PCP - General Physician Employee Wellness/Fitness Coordinator 06/24/20 documented as of this encounter
--- OUTSIDE RECORDS SUMMARY | 2024-03-25 18:25 | XMS_ITS | Encounter Summary ---
Author Name Unknown Organization [place] Address [facility] [place] [address] Care Team Providers Care Code And Test Clerk Name Role Phone [place] Taylor [facility] Primary Care Provider None Primary Care Provider Unavailabl e Jennifer Escobedo MD Primary Care Provider [phone] Nimo Wetzel Primary Care Provider [phone] Kin Waite MD Primary Care Provider [phone] [facility] Primary Care Prov ider Uyen Palm MD Primary Care Provider [phone] Milady Oakes MD Primary Care Provider + [facility] Primary Care Provider [facility] Primary Care Pro vider No Ref-Primary, Physician Primary Care Provider [facility] Primary Care Provide r Villa Santamaria PA-C Unavailable + Villa Santamaria PA-C Unavailable + Segundo Mcclelland MD Unavailable + Segundo Mcclelland MD Unavailable + No Ref-Primary, Physician Primary Care Provider [facility] Primary Care Provide r Villa SantamariaC Unavailable + Segundo Mcclelland MD Unavailable + Segundo Mcclelland MD Primary Care Provider + Sienna Guillermo DO Unavailable + Sandy Cox APRN EXTERIOR DOOR INSTALLER Unavailable + Segundo Mcclelland MD Unavailable + Sienna Guillermo DO Unavailable + Malia Dhillon MD Primary Care Provider [phone] No Ref-Primary, Physician Primary Care Provider Mai Urena-C Unavailable [phone] Segundo Mcclelland MD Unavailable + Segundo Mcclelland MD Unavailable + Qamar Jackson MD Unavailable Segundo Mcclelland MD Primary Care Provider + Amy Montes De Oca RN Unavailable +[phone] Gregorio Dalton-C Unavailable +[phone] Kingsley Garcia MD Unavailable +[phone] Segundo Mcclelland MD Unavailable + Master SheaC Unavailable Allyssa Justice MD Unavailable [phone] Genaro Christian MD Unavailable +[phone] Master Shea-C Unavailable Sienna Guillermo DO Unavailable + Allyssa Justice MD Unavailable [phone] Encounter Details Date Type Department Care Team (Late st Contact Info) Description 10/04/[address] [place] [phone] Taylor Cardozo APRN [facility] [address] [place], [place] [id number] DISCHARGE [facility] Social History Tobacco Use Types Packs/Day Years [...] 10:00 AM CDT [facility] [address] [place] [address] [place] [address] [place], [place] 0[address]68 documented as of this encounter Visit Diagnoses Not on filedocumented in this encounter Additional Health Concerns Infection Onset Date Last Indicated Resolved Time Rule Out COVID-19 02/29/2020 02/29/2020 03/01/2020 9:51 PM CDT Rule Out COVID-19 05/05/2020 05/05/2020 05/06/2020 2:19 AM CDT Rule Out COVID-19 08/20/2020 08/20/2020 08/21/2020 10:31 PM CDT Rule Out COVID-19 10/27/2020 10/27/2020 11/17/2020 11:39 PM BIOINFORMATICS PROGRAMMER Rule Out COVID-19 12/23/2020 12/24/2020 12/24/2020 2:08 AM BIOINFORMATICS PROGRAMMER Rule Out COVID-19 01/24/2021 01/24/2021 01/24/2021 9:18 PM BIOINFORMATICS PROGRAMMER Rule Out COVID-19 10/27/2022 10/27/2022 10/27/2022 3:19 AM BIOINFORMATICS PROGRAMMER Influenza 10/27/2022 10/27/2022 11/03/2022 11:4 0 PM BIOINFORMATICS PROGRAMMER Rule Out COVID-19 01/04/2023 01/04/2023 01/04/2023 8:32 PM BIOINFORMATICS PROGRAMMER Rule Out C-difficile 01/04/2023 01/04/2023 023 1:46 AM BIOINFORMATICS PROGRAMMER Rule Out C-difficile 01/07/2023 01/07/2023 023 8:18 PM BIOINFORMATICS PROGRAMMER Rule Out C-difficile 06/04/2023 06/04/2023 023 11:28 AM CDT Rule Out Eleonora auris 06/04/2023 06/04/202306/07 9:24 AM CDT 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 03/08/2024 Rule Out COVID-19 11/10/2023 11/10/2023 11/10/2023 7:17 PM BIOINFORMATICS PROGRAMMER Rule Out COVID-19 01/18/2024 01/18/2024 01/18/2024 8:53 PM BIOINFORMATICS PROGRAMMER Rule Out COVID-19 01/28/2024 01/28/2024 01/28/2024 10:22 PM BIOINFORMATICS PROGRAMMER Rule Out COVID-19 02/17/2024 02/17/2024 02/17/2024 5:07 PM CDT documented as of this encounter Care Teams Code And Test Clerk Relationship Specialty Start Date End Date Taylor Cardozo APRN EXTERIOR DOOR INSTALLER [address] [place] [address] PCP - General 01/11/04 09/22/10 None PCP - General 09/23/10 09/02/11 Jennifer Escobedo MD [address] [facility] [address] [place] [address] PCP - General salon leader 09/03/11 11/01/11 Nimo Wetzel [address] [place] [address] PCP - General 11/02/11 04/17/12 Kin Waite MD [address] [place] [address] PCP - General salon leader 04/18/12 11/22/12 Practice, [address], [facility] [address] [place] [phone] PCP - General 11/23/12 11/25/13 Uyen Palm MD [address] [place] [address] [address] [place], [place] [id number] PCP - General salon leader 11/26/13 09/02/14 Milady Oakes MD [facility] [id number] [place] [address] PCP - General Family Practice 09/03/14 09/20/15 [facility] [address] [place] [address] PCP - General 09/21/15 07/10/17 [facility] [address] [place] [address] PCP - General 07/11/17 01/19/18 No Ref-Primary, Physician PCP - General 01/20/18 04/30/[address] [id number] PCP - General 05/01/18 09/24/20 Villa Sanatmaria PA-C [address] [place] [address] PCP - Assigned PCP 05/01/18 01/31/19 No Ref-Primary, Physician PCP - General 09/25/20 09/26/[address] [address] PCP - General 09/27/20 08/16/21 [place] [address] [place] [address] PCP - General Family Medicine 08/17/21 10/26/22 [place] [address] [place] [address] PCP - General Family Medicine 10/27/22 10/27/22 No Ref-Primary, Physician PCP - General 11/06/22 04/21/23 [place] [address] [place] [address] PCP - General Family Medicine 04/22/23 Villa Santamaria PA-C [address] [place] [address] Assigned PCP 05/01/18 08/19/19 [place] [address] [place] [address] Assigned PCP 08/20/19 03/16/20 [place] [address] [place] [address] Assigned PCP 03/17/20 03/15/21 Villa Santamaria PA-C [address] [place] [address] Assigned PCP 03/16/21 05/03/21 [place] [address] [place] [address] Assigned PCP 05/04/21 01/17/22 Sienna Guillermo DO [address] [place] [address] Assigned Heart and Vascular Provider 09/21/21 10/04/21 Sandy Cox APRN CNP [address] [place] [address] Assigned Heart and Vascular Provider 10/05/21 09/04/22 [place] [address] [place] [address] Assigned PCP 01/18/22 10/30/22 Sienna Guillermo DO [address] [place] [address] Assigned Heart and Vascular Provider 09/05/22 03/12/23 Mai Urena PA-C [address] [place] [address] Assigned PCP 10/31/22 01/22/23 [place] [address] [address] [place] [address] Assigned Pain Medication Provider 12/07/22 [place] [address] [address] [place] [address] Assigned PCP 01/23/23 [place] [address] [place] [address] Assigned Musculoskeletal Provider 01/23/23 Amy Montes De Oca RN Clinic Route Relief Driver 05/13/2305/17 Gregorio Dalton PA-C [address] [place] [address] [address] Assigned Surgical Provider 05/22/23 Kingsley Garcia MD [address] [place] [address] Assigned Heart and Vascular Provider 08/07/23 [place] [address] [address] [place] [address] Family Medicine 09/10/23 Master Shea PA-C [address] [place] [address] Physician Injection Moulding Machine Operator Gastroenterology 09/10/23 Allyssa Justice MD [facility] [address] [place] 909385 Hematology & Oncology 12/10/23 Genaro Christian MD 6 [place], [place] [address] Cardiovascular Disease 12/22/23 Master Shea PA-C [address] [place] [address] Assigned Gastroenterology Provider 12/23/23 Sienna Guillermo DO [address] [place] [address] Physician Cardiovascular Disease 01/18/24 Allyssa Justice MD [facility] [address] [place] 954335 Assigned Cancer Care Provider 03/21/24 documented as of this encounter
--- OUTSIDE RECORDS SUMMARY | 2024-03-25 18:25 | XMS_ITS ---
Author Name Unknown Organization [place] Address [address] [place] [address] Care Team Providers Care Credit Clerk Name Role Phone Segundo Mcclelland MD Unavailable [phone] Segundo Mcclelland MD Unavailable [phone] Qamar Jackson MD Unavailable Segundo Mcclelland MD Primary Care Provider + Gregorio Dalton-Shirley Unavailable +[phone] Kingsley Garcia MD Unavailable + [phone] Segundo Mcclelland MD Unavailable +[phone] Master Shea-Shirley Unavailable Allyssa Justice MD Unavailable [phone] Genaro Christian MD Unavailable + [phone] Master Shea-C Unavailable Sienna Guillermo DO Unavailable +[phone] Allyssa Justice MD Unavailable [phone] Primary Care Care Coordination Status:Closed (Closed) Start date:03/20/2024 End date:03/23/2024 Close reason:Unable to reach patient Continued Care and Services Coordination
--- OUTSIDE RECORDS SUMMARY | 2024-03-25 18:25 | XMS_ITS | Encounter Summary ---
Author Name Unknown Organization [facility] Address [address] [place] [address] Care Team Providers Care Production Engine Repairer Name Role Phone Jatin Esteban PA-C Primary Care Provider + [phone] Encounter Details Date Type Department Care Team (Late st Contact Info) Description 12/06/2012 Consent for Procedure/Treatme nt [facility] Department RH INFORMED CONSENT RECORD Social History Tobacco Use Types Packs/Day Years Used Date Smoking Tobacco: Never Alcohol Use Standard Drinks/Week Comments Yes 0 (1 standard drink = 0.6 oz pur e alcohol) occassional Comments Yes Sex and Gender Information Value Date Recorded Sex Assigned at Not on file Gender Identity Not on file Sexual Orientation Not on file documented as of this encounter Progress Notes * [facility], PROVIDER - 12/06/2012 12:00 AM CST TESTER documented in this encounter Plan of Treatment Not on file documented as of this encounter Visit Diagnoses Not on filedocumented in this encounter Care Teams Production Engine Repairer Relationship Specialty Start Date End Date Jatin Esteban PA-C [address] [place] [address] PCP - General Physician Managing Jeweler 06/24/20 documented as of this encounter
--- OUTSIDE RECORDS SUMMARY | 2024-03-25 18:25 | XMS_ITS ---
Author Name Unknown Organization [place] Address [address] [place] [address] Care Team Providers Care Radio/Tv Technician Name Role Phone Segundo Mcclelland MD Unavailable [phone] Segundo Mcclelland MD Unavailable [phone] Qamar Jackson MD Unavailable Segundo Mcclelland MD Primary Care Provider + Gregorio Dalton-Shirley Unavailable +[phone] Kingsley Garcia MD Unavailable + [phone] Segundo Mcclelland MD Unavailable +[phone] Master Shea-Shirley Unavailable Allyssa Justice MD Unavailable [phone] Genaro Christian MD Unavailable + [phone] Master Shea-C Unavailable Sienna Guillermo DO Unavailable +[phone] Allyssa Justice MD Unavailable [phone] Primary Care Care Coordination Status:Closed (Closed) Start date:03/03/2024 End date:03/06/2024 Close reason:Not a candidate Continued Care and Services Coordination
--- OUTSIDE RECORDS SUMMARY | 2024-03-25 18:25 | XMS_ITS ---
Author Name Unknown Organization [place] Address [address] [place] [address] Care Team Providers Care Clerk Typist Name Role Phone Segundo Mcclelland MD Unavailable [phone] Segundo Mcclelland MD Unavailable +[phone] Qamar Jackson MD Unavailable Segundo Mcclelland MD Primary Care Provider + Gregorio Dalton-Shirley Unavailable +[phone] Kingsley Garcia MD Unavailable + [phone] Segundo Mcclelland MD Unavailable +[phone] Master Shea PA-C Unavailable Allyssa Justice MD Unavailable [phone] Genaro Christian MD Unavailable + [phone] Master Shea-C Unavailable Sienna Guillermo DO Unavailable +[phone] Allyssa Justice MD Unavailable [phone] Transitional Care Management Status:Closed (Closed) Start date:03/14/2024 End date:03/15/2024 Continued Care and Services Coordination
--- OUTSIDE RECORDS SUMMARY | 2024-03-25 18:25 | XMS_ITS | Clinical Summary ---
Author Name Unknown Organization [facility] Address [address] [place] [phone] Phone Care Team Providers Care Wound Care Rn Name Role Phone Unavailable Primary Care Provider Unavailabl e Encounters Date Type Department Care Team Description 03/20/2024 Telephone [facility] [address] [facility] [address] [place] [address] Anna Ca RN from Last 3 Months Social History Tobacco Use Types Packs/Day Years Used Date Smoking Tobacco: Never Assessed Sex and Gender Information Value Date Recorded Sex Assigned at Not on file Gender Identity Not on file Sexual Orientation Not on file Plan of Treatment Health Maintenance Due Date Last Done Comments Pneumococcal PPSV23 Highest Risk Adult (1 of 3 - PCV13 ) 2004 Influenza Vaccine (Season Ended) 2024
--- OUTSIDE RECORDS SUMMARY | 2024-03-25 18:25 | XMS_ITS | Encounter Summary ---
Author Name Unknown Organization [facility] Address [address] [place] [address] Care Team Providers Care Twisting Operator Name Role Phone Jatin Esteban PA-C Primary Care Provider + [phone] Encounter Details Date Type Department Care Team (Late st Contact Info) Description 11/30/2012 Outside Hospital External to [facility] PROGRESS NOTE Social History Tobacco Use Types Packs/Day Years Used Date Smoking Tobacco: Never Alcohol Use Standard Drinks/Week Comments Yes 0 (1 standard drink = 0.6 oz pur e alcohol) occassional Sex and Gender Information Value Date Recorded Sex Assigned at Not on file Gender Identity Not on file Sexual Orientation Not on file documented as of this encounter Progress Notes * [facility], PROVIDER - 11/30/2012 12:00 AM CST DING ANALYST/SUPERVISOR documented in this encounter Plan of Treatment Not on file documented as of this encounter Visit Diagnoses Not on filedocumented in this encounter Care Teams Twisting Operator Relationship Specialty Start Date End Date Jatin Esteban PA-C [address] [place] [address] PCP - General Physician Wafer Slicer 06/24/20 documented as of this encounter
--- OUTSIDE RECORDS SUMMARY | 2024-03-25 18:25 | XMS_ITS | Encounter Summary ---
Author Name Unknown Organization [place] Address [facility] [place] [address] Care Team Providers Care Chef'S Assistant Name Role Phone [place] Taylor [facility] Primary Care Provider None Primary Care Provider Unavailabl e Jennifer Escobedo MD Primary Care Provider [phone] Nimo Wetzel Primary Care Provider [phone] Kin Waite MD Primary Care Provider [phone] [facility] Primary Care Prov ider Uyen Palm MD Primary Care Provider [phone] Milady Oakes MD Primary Care Provider + [facility] Primary Care Provider [facility] Primary Care Pro vider No Ref-Primary, Physician Primary Care Provider [facility] Primary Care Provide r Villa Santamaria PA-C Unavailable + Villa Santamaria PA-C Unavailable + Segundo Mcclelland MD Unavailable + Segundo Mcclelland MD Unavailable + No Ref-Primary, Physician Primary Care Provider [facility] Primary Care Provide r Villa SantamariaC Unavailable + Segundo Mcclelland MD Unavailable + Segundo Mcclelland MD Primary Care Provider + Sienna Guillermo DO Unavailable + Sandy Cox APRN ACCESS TECH Unavailable + Segundo Mcclelland MD Unavailable + Sienna Guillermo DO Unavailable + Malia Dhillon MD Primary Care Provider [phone] No Ref-Primary, Physician Primary Care Provider Mai Urena-C Unavailable [phone] Segundo Mcclelland MD Unavailable + Segundo Mcclelland MD Unavailable + Qamar Jackson MD Unavailable Segundo Mcclelland MD Primary Care Provider + Amy Montes De Oca RN Unavailable +[phone] Gregorio Dalton-C Unavailable [phone] Kingsley Garcia MD Unavailable +[phone] Segundo Mcclelland MD Unavailable + Master SheaC Unavailable Allyssa Justice MD Unavailable [phone] Genaro Christian MD Unavailable +[phone] Master Shea-C Unavailable Sienna Guillermo DO Unavailable + Allyssa Justice MD Unavailable [phone] Encounter Details Date Type Department Care Team (Late st Contact Info) Description 10/17/[address] [place] [phone] Taylor Cardozo APRN [facility] [address] [place] [address] Social History Tobacco Use Types [...] AM CDT [facility] [address] [place] [phone] [place] [address] [place] [address] documented as of this encounter Visit Diagnoses Not on filedocumented in this encounter Additional Health Concerns Infection Onset Date Last Indicated Resolved Time Rule Out COVID-19 02/29/2020 02/29/2020 03/01/2020 9:51 PM CDT Rule Out COVID-19 05/05/2020 05/05/2020 05/06/2020 2:19 AM CDT Rule Out COVID-19 08/20/2020 08/20/2020 08/21/2020 10:31 PM CDT Rule Out COVID-19 10/27/2020 10/27/2020 11/17/2020 11:39 PM GROUT MACHINE OPERATOR Rule Out COVID-19 12/23/2020 12/24/2020 12/24/2020 2:08 AM GROUT MACHINE OPERATOR Rule Out COVID-19 01/24/2021 01/24/2021 01/24/2021 9:18 PM GROUT MACHINE OPERATOR Rule Out COVID-19 10/27/2022 10/27/2022 10/27/2022 3:19 AM GROUT MACHINE OPERATOR Influenza 10/27/2022 10/27/2022 11/03/2022 11:4 0 PM GROUT MACHINE OPERATOR Rule Out COVID-19 01/04/2023 01/04/2023 01/04/2023 8:32 PM GROUT MACHINE OPERATOR Rule Out C-difficile 01/04/2023 01/04/2023 023 1:46 AM GROUT MACHINE OPERATOR Rule Out C-difficile 01/07/2023 01/07/2023 023 8:18 PM GROUT MACHINE OPERATOR Rule Out C-difficile 06/04/2023 06/04/2023 023 11:28 AM CDT Rule Out Eleonora auris 06/04/2023 06/04/202306/07 9:24 AM CDT 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 03/08/2024 Rule Out COVID-19 11/10/2023 11/10/2023 11/10/2023 7:17 PM GROUT MACHINE OPERATOR Rule Out COVID-19 01/18/2024 01/18/2024 01/18/2024 8:53 PM GROUT MACHINE OPERATOR Rule Out COVID-19 01/28/2024 01/28/2024 01/28/2024 10:22 PM GROUT MACHINE OPERATOR Rule Out COVID-19 02/17/2024 02/17/2024 02/17/2024 5:07 PM CDT documented as of this encounter Care Teams Chef'S Assistant Relationship Specialty Start Date End Date Taylor Cardozo APRN ACCESS TECH [address] [place] [address] PCP - General 01/11/04 09/22/10 None PCP - General 09/23/10 09/02/11 Jennifer Escobedo MD [address] [facility] [address] [place] [address] PCP - General technical assoc 09/03/11 11/01/11 Nimo Wetzel [address] [place] [address] PCP - General 11/02/11 04/17/12 Kin Waite MD [address] [place] [address] PCP - General technical assoc 04/18/12 11/22/12 Practice, [address], [facility] [address] [place] [phone] PCP - General 11/23/12 11/25/13 Uyen Palm MD [address] [place] [address] [address] [place], [place] [id number] PCP - General technical assoc 11/26/13 09/02/14 Milady Oakes MD [facility] [address] [place] [address] PCP - General Family Practice 09/03/14 09/20/15 [facility] [address] [place] [address] PCP - General 09/21/15 07/10/17 [facility] [address] [place] [address] PCP - General 07/11/17 01/19/18 No Ref-Primary, Physician PCP - General 01/20/18 04/30/[address] [id number] PCP - General 05/01/18 09/24/20 Villa Santamaria [place]-C [address] [place] [place] [address] PCP - Assigned PCP 05/01/18 01/31/19 No Ref-Primary, Physician PCP - General 09/25/20 09/26/[address] 0311024 PCP - General 09/27/20 08/16/21 [place] [address] [address] [place] [address] PCP - General Family Medicine 08/17/21 10/26/22 [place] [address] [place] [address] PCP - General Family Medicine 10/27/22 10/27/22 No Ref-Primary, Physician PCP - General 11/06/22 04/21/23 [place] [address] [address] [place] [address] PCP - General Family Medicine 04/22/23 Villa Santamaria PA-C [address] [place] [address] Assigned PCP 05/01/18 08/19/19 [place] [address] [address] [address] Assigned PCP 08/20/19 03/16/20 [place] [address] [place] [address] Assigned PCP 03/17/20 03/15/21 Villa Santamaria PA-C [address] [place] [address] Assigned PCP 03/16/21 05/03/21 [place] [address] [place] [address] Assigned PCP 05/04/21 01/17/22 iSenna Guillermo DO [address] [place] [address] Assigned Heart and Vascular Provider 09/21/21 10/04/21 Sandy Cox APRN CNP [address] [place] [address] Assigned Heart and Vascular Provider 10/05/21 09/04/22 [place] [address] [place] [address] Assigned PCP 01/18/22 10/30/22 Sienna Guillermo DO [address] [place] [address] Assigned Heart and Vascular Provider 09/05/22 03/12/23 Mai Urena PA-C [address] [place] [address] Assigned PCP 10/31/22 01/22/23 [place] [address] [place] [address] Assigned Pain Medication Provider 12/07/22 [place] [address] [place] [address] Assigned PCP 01/23/23 [place] [address] [place] [address] Assigned Musculoskeletal Provider 01/23/23 Amy Montes De Oca RN Clinic Retail Marketing Manager 05/13/2305/17 Gregorio Dalton PA-C [address] [place] [address] Assigned Surgical Provider 05/22/23 Kingsley Garcia MD [address] [place] [address] Assigned Heart and Vascular Provider 08/07/23 [place] [address] [address] [address] Family Medicine 09/10/23 Master Shea PA-C [address] [place] [address] Physician Development Expert Gastroenterology 09/10/23 Allyssa Justice MD [facility] [address] [place] [address] Hematology & Oncology 12/10/23 Genaro Christian MD 6 [place], [place] [address] Cardiovascular Disease 12/22/23 Master Shea PA-C [address] [place] [address] Assigned Gastroenterology Provider 12/23/23 Sienna Guillermo DO [address] [place] [address] Physician Cardiovascular Disease 01/18/24 Allyssa Justice MD [facility] [address] [place] [address] Assigned Cancer Care Provider 03/21/24 documented as of this encounter
--- OUTSIDE RECORDS SUMMARY | 2024-03-25 18:25 | XMS_ITS | Encounter Summary ---
Author Name Unknown Organization [place] Address [facility] [place] [address] Care Team Providers Care Human Resources Department Supervisor Name Role Phone Olin Taylor [facility] Primary Care Provider None Primary Care Provider Unavailabl e Jennifer Escobedo MD Primary Care Provider [phone] Nimo Wetzel Primary Care Provider [phone] Kin Waite MD Primary Care Provider [phone] [facility] Primary Care Prov ider Uyen Palm MD Primary Care Provider [phone] Milady Oakes MD Primary Care Provider + [facility] Primary Care Provider [facility] Primary Care Pro vider No Ref-Primary, Physician Primary Care Provider [facility] Primary Care Provide r Villa Santamaria PA-C Unavailable + Villa Santamaria PA-C Unavailable + Segundo Mcclelland MD Unavailable + Segundo Mcclelland MD Unavailable + No Ref-Primary, Physician Primary Care Provider [facility] Primary Care Provide r Villa SantamariaC Unavailable + Segundo Mcclelland MD Unavailable + Segundo Mcclelland MD Primary Care Provider + Sienna Guillermo DO Unavailable + Sandy Cox APRN BASS SINGER Unavailable + Segundo Mcclelland MD Unavailable + Sienna Guillermo DO Unavailable + Malia Dhillon MD Primary Care Provider [phone] No Ref-Primary, Physician Primary Care Provider Mai Urena-C Unavailable [phone] Segundo Mcclelland MD Unavailable + Segundo Mcclelland MD Unavailable + Qamar Jackson MD Unavailable Segundo Mcclelland MD Primary Care Provider + Amy Montes De Oca RN Unavailable +[phone] Gregorio Dalton-C Unavailable [phone] Kingsley Garcia MD Unavailable [phone] Segundo Mcclelland MD Unavailable + Master SheaC Unavailable Allyssa Justice MD Unavailable [phone] Genaro Christian MD Unavailable +[phone] Master Shea-C Unavailable Sienna Guillermo DO Unavailable + Allyssa Justice MD Unavailable [phone] Encounter Details Date Type Department Care Team (Late st Contact Info) Description 10/04/[address] [place] [id number] Taylor Cardozo APRN [facility] [address] [place] [address] Social History Tobacco Use Types [...] 10:00 AM CDT [facility] [address] [place] [phone] [place] [address] [place] [address] documented as of this encounter Visit Diagnoses Not on filedocumented in this encounter Additional Health Concerns Infection Onset Date Last Indicated Resolved Time Rule Out COVID-19 02/29/2020 02/29/2020 03/01/2020 9:51 PM CDT Rule Out COVID-19 05/05/2020 05/05/2020 05/06/2020 2:19 AM CDT Rule Out COVID-19 08/20/2020 08/20/2020 08/21/2020 10:31 PM CDT Rule Out COVID-19 10/27/2020 10/27/2020 11/17/2020 11:39 PM PHOTOGRAPH MOUNTER Rule Out COVID-19 12/23/2020 12/24/2020 12/24/2020 2:08 AM PHOTOGRAPH MOUNTER Rule Out COVID-19 01/24/2021 01/24/2021 01/24/2021 9:18 PM PHOTOGRAPH MOUNTER Rule Out COVID-19 10/27/2022 10/27/2022 10/27/2022 3:19 AM PHOTOGRAPH MOUNTER Influenza 10/27/2022 10/27/2022 11/03/2022 11:4 0 PM PHOTOGRAPH MOUNTER Rule Out COVID-19 01/04/2023 01/04/2023 01/04/2023 8:32 PM PHOTOGRAPH MOUNTER Rule Out C-difficile 01/04/2023 01/04/2023 023 1:46 AM PHOTOGRAPH MOUNTER Rule Out C-difficile 01/07/2023 01/07/2023 023 8:18 PM PHOTOGRAPH MOUNTER Rule Out C-difficile 06/04/2023 06/04/2023 023 11:28 AM CDT Rule Out Eleonora auris 06/04/2023 06/04/202306/07 9:24 AM CDT 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 03/08/2024 Rule Out COVID-19 11/10/2023 11/10/2023 11/10/2023 7:17 PM PHOTOGRAPH MOUNTER Rule Out COVID-19 01/18/2024 01/18/2024 01/18/2024 8:53 PM PHOTOGRAPH MOUNTER Rule Out COVID-19 01/28/2024 01/28/2024 01/28/2024 10:22 PM PHOTOGRAPH MOUNTER Rule Out COVID-19 02/17/2024 02/17/2024 02/17/2024 5:07 PM CDT documented as of this encounter Care Teams Human Resources Department Supervisor Relationship Specialty Start Date End Date Taylor Cardozo APRN BASS SINGER [address] [place] [address] PCP - General 01/11/04 09/22/10 None PCP - General 09/23/10 09/02/11 Jennifer Escobedo MD [address] [facility] [address] [place] [address] PCP - General explosives handler 09/03/11 11/01/11 Nimo Wetzel [address] [place] [address] [place] [address] PCP - General 11/02/11 04/17/12 Kin Waite MD [address] [place] [address] [place] [address] PCP - General explosives handler 04/18/12 11/22/12 Practice, [address], [facility] [address] [place] [phone] PCP - General 11/23/12 11/25/13 Uyen Palm MD [address] [place] [address] [address] [place], [place] [id number] PCP - General explosives handler 11/26/13 09/02/14 Milady Oakes MD [facility] [address] [place] [address] PCP - General Family Practice 09/03/14 09/20/15 [facility] [address] [place] [address] PCP - General 09/21/15 07/10/17 [facility] [address] [place] [address] PCP - General 07/11/17 01/19/18 No Ref-Primary, Physician PCP - General 01/20/18 04/30/[address] [id number] PCP - General 05/01/18 09/24/20 Villa Santamaria PA-C [address] [place] [address] PCP - Assigned PCP 05/01/18 01/31/19 No Ref-Primary, Physician PCP - General 09/25/20 09/26/[address] [id number] PCP - General 09/27/20 08/16/21 [place] [address] [place] [address] PCP - General Family Medicine 08/17/21 10/26/22 [place] [address] [place] [address] PCP - General Family Medicine 10/27/22 10/27/22 No Ref-Primary, Physician PCP - General 11/06/22 04/21/23 [place] [address] [place] [address] PCP - General Family Medicine 04/22/23 Villa Santamaria PA-C [address] [place] [place] [address] Assigned PCP 05/01/18 08/19/19 [place] [address] [place] [address] Assigned PCP 08/20/19 03/16/20 [place] [address] [place] [address] Assigned PCP 03/17/20 03/15/21 Villa Santamaria PA-C [address] [place] [address] Assigned PCP 03/16/21 05/03/21 [place] [address] [place] [address] Assigned PCP 05/04/21 01/17/22 Sienna Guillermo DO [address] [place] [address] Assigned Heart and Vascular Provider 09/21/21 10/04/21 Sandy Cox APRN CNP [address] [place] [address] Assigned Heart and Vascular Provider 10/05/21 09/04/22 [place] [address] [place] [address] Assigned PCP 01/18/22 10/30/22 Sienna Guillermo DO [address] [place] [address] Assigned Heart and Vascular Provider 09/05/22 03/12/23 Mai Urena PA-C [address] [place] [address] Assigned PCP 10/31/22 01/22/23 [place] [address] [place] [address] Assigned Pain Medication Provider 12/07/22 [place] [address] [place] [address] Assigned PCP 01/23/23 [place] [address] [place] [address] Assigned Musculoskeletal Provider 01/23/23 Amy Montes De Oca RN Clinic Video Presentation Operator 05/13/2305/17 Gregorio Dalton PA-C [address] [place] [address] Assigned Surgical Provider 05/22/23 Kingsley Garcia MD [address] [place] [address] Assigned Heart and Vascular Provider 08/07/23 [place] [address] [place] [address] Family Medicine 09/10/23 Master Shea PA-C [address] [place] [address] Physician Product Marketing Director Gastroenterology 09/10/23 Allyssa Justice MD [facility] [address] [place] [address] [place] [address] Hematology & Oncology 12/10/23 Genaro Christian MD [address] [place], [place] 3096[address] Cardiovascular Disease 12/22/23 Master Shea PA-C [address] [place] [address] Assigned Gastroenterology Provider 12/23/23 Sienna Guillermo DO [address] [place] [address] Physician Cardiovascular Disease 01/18/24 Allyssa Justice MD [facility] [address] [place] [address] Assigned Cancer Care Provider 03/21/24 documented as of this encounter
--- OUTSIDE RECORDS SUMMARY | 2024-03-25 18:25 | XMS_ITS | Encounter Summary ---
Author Name Unknown Organization [facility] Address [address] [place] [address] Care Team Providers Care Cotton Chopper Name Role Phone Jatin Esteban PA-C Primary Care Provider + [phone] Reason for Visit * Reason Comments Questions Encounter Details Date Type Department Care Team (Late st Contact Info) Description 07/12/2016 Telephone [facility] [address] [place], [place] [address] Jose Caldwell MD [address] [place] [address] Questions Social History Tobacco Use Types Packs/Day Years Used Date Smoking Tobacco: Never Alcohol Use Standard Drinks/Week Comments No 0 (1 standard drink = 0.6 oz pur e alcohol) occassional Sex and Gender Information Value Date Recorded Sex Assigned at Not on file Gender Identity Not on file Sexual Orientation Not on file documented as of this encounter Nursing Notes * Catie Angelo - 07/12/2016 3:46 PM CDT Returned patient call stating that she was not happy about her visit the [facility]. She was given the same medication that she already had at home and this did not help with her current pain. Patient states that she was told that there was nothing they could do for her there since she was seen 2 days prior. She is calling today about what she should do until her injection tomorrow. Per [facility] physician, patient to continue with current pain medications and injection tomorrow. She asked ifshe could go to another facility. She was advised that is she decided to do that she would be starting over with her care and there is no guarantee that they would do anything different for her. RONMENTAL PROTECTION ECONOMIST documented in this encounter Plan of Treatment Not on file documented as of this encounter Visit Diagnoses Not on filedocumented in this encounter Care Teams Cotton Chopper Relationship Specialty Start Date End Date Jatin Esteban PA-C [address] [place] [address] PCP - General Physician Theatrical Dresser 06/24/20 documented as of this encounter
--- OUTSIDE RECORDS SUMMARY | 2024-03-25 18:25 | XMS_ITS | Encounter Summary ---
Author Name Unknown Organization [facility] Address [address], [place] [address] Care Team Providers Care Allocations Clerk Name Role Phone Jatin Esteban PA-C Primary Care Provider + [phone] Encounter Details Date Type Department Care Team (Late st Contact Info) Description 11/22/2012 Outside Hospital External to External, Provider No address [place], [place] [id number] [place] [address] CONSULTATION Social History Tobacco Use Types Packs/Day Years Used Date Smoking Tobacco: Never Alcohol Use Standard Drinks/Week Comments Yes 0 (1 standard drink = 0.6 oz pur e alcohol) occassional Sex and Gender Information Value Date Recorded Sex Assigned at Not on file Gender Identity Not on file Sexual Orientation Not on file documented as of this encounter Progress Notes * External, Provider - 11/22/2012 12:00 AM CST RALIST documented in this encounter Plan of Treatment Not on file documented as of this encounter Visit Diagnoses Not on filedocumented in this encounter Care Teams Allocations Clerk Relationship Specialty Start Date End Date Jatin Esteban PA-C [address] [place] [address] PCP - General Physician Call Worker Person 06/24/20 documented as of this encounter
--- OUTSIDE RECORDS SUMMARY | 2024-03-25 18:25 | XMS_ITS | Encounter Summary ---
Author Name Unknown Organization [facility] Address [address] [place] [address] Care Team Providers Care Licensing Analyst Name Role Phone Jatin Esteban PA-C Primary Care Provider + [phone] Encounter Details Date Type Department Care Team (Late st Contact Info) Description 12/07/2012 Consent for Procedure/Treatme nt [facility] Department RH INFORMED CONSENT RECORD Social [...] as of this encounter Progress Notes * [facility], PROVIDER - 12/07/2012 12:00 AM CST ROOM GROWTH MEDIA MIXER documented in this encounter Plan of Treatment Not on file documented as of this encounter Visit Diagnoses Not on filedocumented in this encounter Care Teams Licensing Analyst Relationship Specialty Start Date End Date Jatin Esteban PA-C [address] [place] [address] PCP - General Physician Skoog Patching Machine Operator 06/24/20 documented as of this encounter
--- OUTSIDE RECORDS SUMMARY | 2024-03-25 18:25 | XMS_ITS | Encounter Summary ---
Author Name Unknown Organization [facility] Address [address], [place] [address] Care Team Providers Care Global Lead Name Role Phone Jatin Esteban PA-C Primary Care Provider + [phone] Encounter Details Date Type Department Care Team (Late st Contact Info) Description 06/19/2014 Outside Hospital External to [facility] DISCHARGE SUMMARY Social History Tobacco Use Types Packs/Day Years Used Date Smoking Tobacco: Never Alcohol Use Standard Drinks/Week Comments No 0 (1 standard drink = 0.6 oz pur e alcohol) Comments Yes Sex and Gender Information Value Date Recorded Sex Assigned at Not on file Gender Identity Not on file Sexual Orientation Not on file documented as of this encounter Plan of Treatment Not on file documented as of this encounter Visit Diagnoses Not on filedocumented in this encounter Care Teams Global Lead Relationship Specialty Start Date End Date Jatin Esteban PA-C [address] [place] [address] PCP - General Physician Habitat Conservation Planner 06/24/20 documented as of this encounter
--- OUTSIDE RECORDS SUMMARY | 2024-03-25 18:25 | XMS_ITS ---
Author Name Unknown Organization [place] Address [facility] [place] [address] Care Team Providers Care Galvanizer Name Role Phone Segundo Mcclelland MD Unavailable [phone] Segundo Mcclelland MD Unavailable [phone] Qamar Jackson MD Unavailable Segundo Mcclelland MD Primary Care Provider + Gregorio Dalton-C Unavailable [phone] Kingsley Garcia MD Unavailable + [phone] Segundo Mcclelland MD Unavailable [phone] Master Shea-Shirley Unavailable Allyssa Justice MD Unavailable [phone] Genaro Christian MD Unavailable + [phone] Master Shea-C Unavailable Sienna Guillermo DO Unavailable +[phone] Allyssa Justice MD Unavailable [phone] Transitional Care Management Status:Closed (Closed) Start date:12/09/2023 Enrollment date:12/09/2023 End date:12/23/2023 Close reason:Goals met Continued Care and Services Coordination
--- OUTSIDE RECORDS SUMMARY | 2024-03-25 18:25 | XMS_ITS | Clinical Summary ---
Author Name Unknown Organization [employer] Address [place], [place] [address] Care Team Providers Care Production Foreman Name Role Phone [facility] - Primary [facility] Provi rosita Allergies Active Allergy Reactions Criticality Noted Date Comments Adhesive Other - Describe In Comment Field High 12/01/2013 Blisters, redness due to tegaderm dressing. Chlorhexidine Itching Medium 12/15/2023 Clindamycin Itching,Erythema 09/15/2008 With IV infusion Codeine Itching 08/14/2013 Iodinated Contrast Media Hives 04/24/2014 Had itching, hives, SOB despite benadryl pre-medication on 09/03/2015. Recommend premedication with methylprednisolone at 12 and 2 hours prior to any further imaging studies with contrast. Droperidol *Unknown 07/04/2008 Unsure if really allergic Metrizamide Hives,Itching,*Un known 12/11/2014 reaction after injection of IV contrast for CT chest 03/[address] [facility]. Premedicated w/ Benadryl prior to CT at [facility] 12/11/14 - still had itching after injection of IV contrast (Isovue 370). Naproxen Anaphylaxis High 08/04/2012 PN: anaphylaxis Nsaids (Non-Steroidal Anti-Inflammatory Drug) Anaphylaxis High 06/11/2008 Prochlorperazine *Unknown 09/27/2011 Muscle twitches/anxiety Metoclopramide Hcl Other - Describe In Comment Field 09/21/2013 Muscle twitching w IV only; tolerates oral fine Sulfa (Sulfonamide Antibiotics) Anaphylaxis 06/11/2008 Vancomycin Rash,Itching 08/05/2021 Ondansetron Hives 10/01/2011 IV form only Medications Medication Sig Dispensed Refills Start Date End Date Status acetaminophen (TYLENOL EXTRA STRGTH) 500 mg tablet Take 500-1,000 mg by mouth every 6 hours if needed. Max acetaminophen dose: 4000mg in 24 hrs. Active gabapentin (NEURONTIN) 800 mg tablet Take 800 mg by mouth 3 times daily. Active diazePAM (VALIUM) 2 mg tablet Take 4 mg by mouth BID plus additional 2 mg BID prn (total daily dose 12 mg) Active zaleplon (SONATA) 10 mg capsule Take 10 mg by mouth at bedtime. Active HYDROmorphone (DILAUDID) 2 mg tabletIndications: Narcotic withdrawal (HC) Take 2 Tablets (4 mg) by mouth every 8 hours if needed for Pain. 15 Tablet 12/17/2023 Active Active Problems Problem Noted Date Diagnosed Date CANELO (acute kidney injury) 07/28/2021 Nausea & vomiting 07/28/2021 Nausea and vomiting 10/27/2020 Suspected COVID-19 virus infection 10/27/2020 Dehydration 10/27/2020 Anxiety 10/27/2020 Pleuritic chest pain 04/05/2018 Contrast media allergy 04/05/2018 Pelvic pain 01/25/2018 Hx of pulmonary embolus 08/03/2016 Tachycardia 08/03/2016 Chest tightness or pressure 08/03/2016 Intertrigo 09/10/2015 PID (pelvic inflammatory disease) 09/04/2015 Left lower quadrant pain 09/02/2015 Chronic pain 09/02/2015 Syncope and collapse 02/13/2015 Orthostatic hypotension 02/13/2015 Epistaxis, recurrent 02/13/2015 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 On lovenox through the end of June. She is seeing hematology since the coumadin didn't work. Dr. Carolyn Pryor. Plan for blood work mid july Personality disorder 05/01/2014 Staphylococcus epidermidis bacteremia 01/21/2014 Overview: Related to PICC - removed. Narcotic dependence 2013 Overview: Patient at [facility]. On a stay of commitment (case packer and sealer Sheryl [phone]) Female day outpt program. Primary counselor Matilde De La O [phone] NICU consult requested 01/05/14. The NICU will call the patient directly to schedule the consult. Kathleen-Mutsafa tear with acute gastrointestinal b leeding 10/21/2013 Overview: Last endoscopy 05/2014. Need follow up EGD with history of gastric polyps that were bleeding, erosions, esophagitis Gastric ulcer with hemorrhage 11/13/2012 Iron deficiency anemia, unspecified 11/12/2012 Morbid obesity 07/26/2012 Concussion with loss of consciousness of 30 niko randy or less 01/08/2012 Hematemesis 10/03/2011 Overview: 2/2 MWT - if requires admission with chest pain 2/[address] Durant [address] on dilaudid PATROL OFFICER with max being 1-1.5mg/hr continuous - suggest pain consult with every admission given h/o multiple prescribers/pharmacies for narcotics in the 1 year prior to (15 pharmacies/21 providers) Would also order psychiatric evaluation as a conditional part of IV or oral narcotics. She has declined this before, but would not have this be optional - Dr. Durant can assist with this. Episodic mood disorder 07/01/2011 Unspecified Epilepsy without Mention of Intractable Epilepsy Overview: In childhood and during Posttraumatic stress disorder Overview: Doing therapy at [facility]. Childhood trauma Depressive Disorder, not Elsewhere Classified Anaphylactic syndrome Post-op pain Resolved Problems Problem Noted Date Diagnosed Date Resolved Date Nausea & vomiting 09/09/2015 06/15/2017 Chronic narcotic use 09/02/2015 017 Near syncope 02/14/2015 06/15/2017 Nausea & vomiting 02/13/2015 06/15/2017 Chest pain 08/29/2014 06/15/2017 History of asthma in childhood 08/05/2014 06/15/2017 Tracheobronchitis 08/05/2014 06/15/2017 Asthma with acute exacerbation 08/04/2014 08/05/2014 fever, current hospitalization 02/27/2014 07/27/2014 delivery 02/23/2014 08/10/2014 Vaginal delivery 02/23/2014 08/10/2014 Methadone maintenance therapy patient 02/23/2014 07/27/2014 premature rupture of membranes (PPROM) delivered, current hospitalization 02/22/2014 08/10/2014 Cholestasis of 02/19/2014 Elevated liver function tests 01/22/2014 08/29/2014 Overview: Cholestasis of History of delivery, currently 11/07/2013 07/27/2014 Hx LEEP (loop electrosurgica l excision procedure), cervix, 11/07/2013 07/27/2014 Overview: Age 17 Leukocytosis 10/21/2013 01/21/2014 Syncope 10/21/2013 01/21/2014 Tachycardia 10/21/2013 01/21/2014 Acute viral gastroenteritis 10/21/2013 11/05/2013 Anemia of 10/21/2013 07/27/20 14 Opiate withdrawal 10/17/2013 07/27/2014 Sinus Tachycardia 09/28/2013 10/21/2013 Hx Partial small bowel obstruction 09/21/2013 07/27/2014 Overview: June 2013 - medically managed - [place] SIRS (systemic inflammatory response syndrome) 09/21/2013 10/21/2013 Overview: Tachycardia/tachypnea with periumbilical abdominal pain Umbilical Abscess 09/21/2013 08/10/2014 Abdominal pain, acute, epigastric 11/12/2012 07/27/2014 Acute right pelvic pain, female 07/26/2012 07/27/2014 Pyelonephritis, unspecified 10/26/2011 10/21/2013 Hyperemesis gravidarum befor e end of 22 week gestation with dehydration 10/09/2011 07/27/2014 Kathleen-Mustafa tear 10/09/2011 4 RUQ abdominal pain 09/29/2011 3 Overview: Hyperemesis Opiate use Previous cerclage Subchorionic hemorrhage of placenta 09/29/2011 08/10/2014 Supervision of other normal 09/29/2011 08/10/2014 Overview: Hyperemesis Previous cerclage Viral gastroenteritis 09/14/20092013 Hematemesis 09/10/2009 07/27/2014 strep bacteremia 09/10/2009 07/27/2014 Nausea with vomiting 09/09/2009 014 Diarrhea 09/09/2009 07/27/2014 Sinus Tachycardia 09/09/2009 06/15/2017 Overview: History since adolescent. Was on a med which brought it down. Persistently will be elevated; more than with the PE which has resolved. labor 09/25/2008 07/27/2014 PROM (premature rupture of membranes) 09/13/2008 09/25/2008 Cervical Incompetence, Antep artum Condition or Complication 07/04/2008 07/27/2014 Overview: Ultrasound indicated Arriaga cerclage (07/04/2008 = 17-3/7 weeks) with Single suture of #2 Ethilon Abdominal Pain, Generalized 07/04/2008 07/27/2014 PREMATURE CERVICAL SHORTENING 07/03/2008 07/27/2014 Carrier or Suspected Carrier of Group B Streptococcus 07/03/2008 07/27/2014 Overview: Pos UC at on 05/22/08 Unspecified Asthma 4 Eating Disorder, Unspecified 07/27/2014 Immunizations Name Administration Dates Next Due Hepatitis A (Adult) 03/16/2005 Hepatitis B (Adult) 08/13/2000,07/08/2000 Hepatitis B (Peds) 03/16/2005,08/13/2000, 000 Inactivated Polio Vaccine 03/16/2005,09/07/1991 Influenza A (H1N1), Inactiva alessandra (Age >=3 Years) 09/26/2012 Influenza Virus, Unspecified 08/29/2012 Influenza, IIV3 (Age >=3 years) 10/17/2013,12/08,09/29/2008 MMR 07/16/2000,08/11/1988 Meningococcal Vaccine (Menactra) 03/16/2005 Pneumococcal Poly,23-Valent (Pneumovax) 12/08/19 13,10/13/2008,09/23/2006 Pneumococcal, Unspecified 10/13/2008 Td (Age >=7 Years) 07/16/2000 Tdap 02/05/2014 Typhoid (oral) 03/16/2005 Yellow Fever 03/16/2005 Family History Medical History Relation Name Comments Cancer-colon Father polyps on colon Cancer-breast Mother Hypertension Mother Cancer-ovarian Other Maternal Cousin Cervical cancer Other Maternal Cousin Cancer-colon Paternal Grandfather Good Health Sister 2 Other Son ear tubes Premature CHD (under age 60) No Family History Relation Name Status Comments Father Alive Maternal Grandfather Alive Maternal Grandmother Alive Mother Alive Other Maternal Cousin Alive Paternal Grandfather Paternal Grandmother Alive Sister 1 Alive Sister 2 Son Social History Tobacco Use Types Packs/Day Years Used Date Smoking Tobacco: Never Smokeless Tobacco: Never Tobacco Cessation:Counseling Given: No Alcohol Use Standard Drinks/Week Comments Yes 0 (1 standard drink = 0.6 oz pur e alcohol) socially Sex and Gender Information Value Date Recorded Sex Assigned at Not on file Gender Identity Not on file Sexual Orientation Not on file Obstetrics History Para Term AB IAB SAB Ectopic Multiple Livin g Live Births 4 3 0 3 0 0 0 0 3 1 Date Outcome GA Total Labor Labor/2nd/3rd Weight Sex Delivery Anes PTL Ruchi A1 A5 Name Cl in Comments:System Genera alessandra. Please review and update details. 10/14 32w 0d Comments:rescue cercla ge at 16w for short cvx, removed at 27w after PROM, del at 32w. 04/07 35w 0d Comments:prophylactic cerclage removed at 27w. IM progesterone wkly. Cholestasis. ROM at 35w. 02/23 34w 0d 2.35 kg (5 lb 2.7 oz) F Vag Wendy ng 7 9 YEN, BG Delivery Location:[facility] Last Filed Vital Signs Vital Sign Reading Time Taken Comments Blood Pressure 148/94 12/16/2023 11:30 PM CHEMICAL HANDLER Pulse 118 12/16/2023 11:30 PM CHEMICAL HANDLER Temperature 36.5 ??C (97.7 ??F) 12/16/2023 6:19 PM CS T Respiratory Rate 20 12/16/2023 6:19 PM CHEMICAL HANDLER Oxygen Saturation 98% 12/16/2023 11:30 PM CHEMICAL HANDLER Inhaled Oxygen Concentration - - Weight 99.8 kg (220 lb) 12/16/2023 6:19 PM CHEMICAL HANDLER Height 167.6 cm (5' 6) 12/16/2023 6:19 PM CHEMICAL HANDLER Body Mass Index 35.51 12/16/2023 6:19 PM CHEMICAL HANDLER Plan of Treatment Health Maintenance Due Date Last Done Comments Pap test for age 21-65 2006 BMI (ht and wt on same day) for age 18+ 09/22/2018 09/22/2017, 08/26/2017, 08/26/2017, Additional history exists Depression screening for age 12+ 09/27/2018 09/27/2017, 09/22/2017, 09/21/2017, Additional history exists COVID-19 vaccine series (2022- season) 2023 10/12/2021, 02/03/2021 Tetanus booster 02/06/2024 02/05/2014, 07/16/2000 Influenza for age 9-49 07/30/2024 3, 12/08/2012, 09/26/2012, Additional history exists Pneumococcal series for age 6-64 Aged Out 12/08/2012, 10/13/2008, 10/13/2008, Additional history exists No longer eligible based on patient's age to complete this topic HIV for age 15-65 Completed 10/02/2013, 09/11/2009 Hepatitis C screening for age 18-79 Completed 11/28/2013 Tdap Completed 02/05/2014 Procedures Procedure Name Priority Date/Time Associated Diagnosis Comments ANTI HCV Early AM 11/28/2013 6:30 AM CHEMICAL HANDLER ANTI HIV 1/2 Early AM 10/02/2013 6:00 AM CHEMICAL HANDLER from Last 3 Months or Most Recently Relevant to Health Maintenance Results * ANTI HCV (11/28/2013 6:30 AM CHEMICAL HANDLER) ANTI HCV Non-reacti ve [facility] Blood specimen (specimen) BLOOD SPECIMEN / Unknown 11/28/2013 6:30 AM CHEMICAL HANDLER 11/27/2013 10:01 PM CHEMICAL HANDLER Lisandro Escamilla MD SEND OUTS [facility] INTERNAL ZIP [id number] [place] [id number] * ANTI HIV 1/2 (10/02/2013 6:00 AM CHEMICAL HANDLER) ANTI HIV 1/2 Non-reacti ve [facility] Blood specimen (specimen) BLOOD SPECIMEN / Unknown 10/02/2013 6:00 AM CHEMICAL HANDLER 10/01/2013 2:48 PM CHEMICAL HANDLER Malia Leal MD [facility]END OUTS [facility] INTERNAL ZIP [id number] [place] [id number] from Last 3 Months or Most Recently Relevant to Health Maintenance Advance Directives * Full Code (Latest Code Status on File) Date Activated Date Inactivated Comments 07/28/2021 5:52 PM 08/13/2021 11:17 PM Question Answer Comments Code Status Discussion: Not Discussed * Full Code Date Activated Date Inactivated Comments 10/27/2020 9:24 PM 10/28/2020 2:44 AM Question Answer Comments Code Status Discussion: Discussed * Full Code Date Activated Date Inactivated Comments 04/05/2018 2:58 AM 04/05/2018 8:06 PM * Full Code Date Activated Date Inactivated Comments 12/01/2016 5:06 AM 12/01/2016 12:56 PM * Full Code Date Activated Date Inactivated Comments 08/03/2016 11:22 PM 08/04/2016 4:51 PM Care Teams Production Foreman Relationship Specialty Start Date End Date [facility] [place] [address] PCP - General 01/12/20
[2024-03-25 18:29] LABS: C Reactive Protein* 4.7 mg/dL (0.5-1.0)
[2024-03-25 18:30] VITALS: BP 117/62; PULSE 111; RESP 16; O2SAT 98
[2024-03-25 18:55] LABS: Erythrocyte SedimentationRate* 75 mm/hr (2-20)
[2024-03-25 19:00] VITALS: O2SAT 97
[2024-03-25] MEDS: HEPARIN 500 UNIT/5 ML SYRINGE IVF (19:27)
[2024-03-25 20:17] VITALS: BP 117/62; PULSE 111; RESP 16; TEMP 36.7
== END 2024-03-25 20:18 | disposition home or self-care (01) ==
PROVIDERS: Emergency Provider Student in an Organized Health Care Education/Training Program; PCP Family Medicine
DX: M54.2 Cervicalgia (principal)
CPT/HCPCS: 36415; 80053; 81001; 83605; 84484; 85025; 85651; 86140; 87040; 87186; 87631; 93005; 94761; 99283; 99284; A9270; J1642; J7120

== ENCOUNTER 2024-03-26 17:32 | Emergency (ER) | payer MEDICAID, SELFPAY ==
[2024-03-26 17:42] VITALS: BP 109/68; PULSE 118; RESP 18; TEMP 36.3; O2SAT 97
[2024-03-26] MEDS: ACETAMINOPHEN 500 MG TABLET PO (18:28)
--- NOTE | 2024-03-26 18:33 | ED_ITS ---
HPI - General Adult General Date Seen: 03/26/24 Chief complaint: Fever Stated complaint: Fever Time Seen by Provider: 03/26/24 17:44 Source: patient Mode of arrival: ambulatory Limitations: no limitations History of Present Illness HPI narrative: Patient is a 38-year-old female who is on IV antibiotics through a port for possible osteomyelitis presenting to the emergency department for neck pain. She took of the car share ride from [employer] here. She states she had fevers again over night and took 500 mg of Tylenol per rectum. When asked francois long ago she took it she states initially said 2 hours then asked how long she was in the emergency department. I informed her she has only been here for 10 minutes and then she changed her and to an hour and 10 minutes ago. She states she was told to come back if she has fevers or worsening neck pain. She states the Dilaudid taper she is on is not controlling her pain adequately. States the only medicine she can take is Dilaudid and Tylenol and she is allergic to every other pain medication. Denies chest pain, shortness of breath, lightheadedness, dizziness, weakness. Related Data Home Medications Medication Instructions Recorded Confirmed apixaban 5 mg tablet (Eliquis) 5 mg PO BID 03/25/24 03/25/24 cholecalciferol (vitamin D3) 50 50 mcg PO DAILY 03/25/24 03/25/24 mcg (2,000 unit) capsule gabapentin 800 mg tablet 800 mg PO 3XD 03/25/24 03/25/24 hydromorphone 2 mg tablet mg PO 03/25/24 hydromorphone 4 mg tablet 4 mg PO Q6H PRN severe pain 03/25/24 03/25/24 lorazepam 1 mg tablet 1 mg PO Q6H 03/25/24 03/25/24 zolpidem 10 mg tablet 10 mg PO DAILY 03/25/24 03/25/24 Allergies Allergy/AdvReac Type Severity Reaction Status Date / Time droperidol Allergy Verified 03/25/24 16:32 metoclopramide [From Reglan] Allergy Verified 03/25/24 16:32 NSAIDS (Non-Steroidal Allergy Verified 03/25/24 16:32 Anti-Inflamma prochlorperazine Allergy Verified 03/25/24 16:32 [From Compazine] Sulfa (Sulfonamide Allergy Verified 03/25/24 16:32 Antibiotics) Review of Systems Status of ROS: Reports: 10 or more systems reviewed and unremarkable except as noted in History and below [facility] Medical History Bipolar 1 disorder ?F31.9 - Bipolar disorder, unspecified (ICD-10) Seizure ?R56.9 - Unspecified convulsions (ICD-10) Sepsis ?A41.9 - Sepsis, unspecified organism (ICD-10) Atrial flutter ?I48.92 - Unspecified atrial flutter (ICD-10) CAP (community acquired pneumonia) ?J18.9 - Pneumonia, unspecified organism (ICD-10) Streptococcus viridans infection ?A49.1 - Streptococcal infection, unspecified site (ICD-10) Ulcer of right foot ?L97.519 - Non-pressure chronic ulcer of other part of right foot with unspecified severity (ICD-10) Dysthymic disorder ?F34.1 - Dysthymic disorder (ICD-10) Eating disorder ?F50.9 - Eating disorder, unspecified (ICD-10) Dysplasia of cervix ?N87.9 - Dysplasia of cervix uteri, unspecified (ICD-10) Post traumatic stress disorder (PTSD) ?F43.10 - Post-traumatic stress disorder, unspecified (ICD-10) Major depressive disorder with single episode ?F32.9 - Major depressive disorder, single episode, unspecified (ICD-10) Insomnia ?G47.00 - Insomnia, unspecified (ICD-10) Borderline personality disorder ?F60.3 - Borderline personality disorder (ICD-10) Allergic rhinitis ?J30.9 - Allergic rhinitis, unspecified (ICD-10) Abdominal pain ?R10.9 - Unspecified abdominal pain (ICD-10) Ureteral stone ?N20.1 - Calculus of ureter (ICD-10) contractions ?O47.00 - False labor before 37 completed weeks of gestation, unspecified trimester (ICD-10) Drug-seeking behavior ?Z76.5 - Malingerer [conscious simulation] (ICD-10) GERD (gastroesophageal reflux disease) ?K21.9 - Gastro-esophageal reflux disease without esophagitis (ICD-10) LFT elevation ?R79.89 - Other specified abnormal findings of blood chemistry (ICD-10) Gastric ulcer with hemorrhage ?K25.4 - Chronic or unspecified gastric ulcer with hemorrhage (ICD-10) GI bleed ?K92.2 - Gastrointestinal hemorrhage, unspecified (ICD-10) Headache ?R51.9 - Headache, unspecified (ICD-10) Hematemesis ?K92.0 - Hematemesis (ICD-10) Kathleen-Mustafa tear ?K22.6 - Gastro-esophageal laceration-hemorrhage syndrome (ICD-10) Intertrigo ?L30.4 - Erythema intertrigo (ICD-10) PID (acute pelvic inflammatory disease) ?N73.0 - Acute parametritis and pelvic cellulitis (ICD-10) Chronic narcotic use ?F11.90 - Opioid use, unspecified, uncomplicated (ICD-10) Left lumbar radiculopathy ?M54.16 - Radiculopathy, lumbar region (ICD-10) Positive D dimer ?R79.89 - Other specified abnormal findings of blood chemistry (ICD-10) Asthma ?J45.909 - Unspecified asthma, uncomplicated (ICD-10) Psychogenic nonepileptic seizure ?F44.5 - Conversion disorder with seizures or convulsions (ICD-10) Pleuritic chest pain ?R07.81 - Pleurodynia (ICD-10) Suspected COVID-19 virus infection ?Z20.822 - Contact with and (suspected) exposure to COVID-19 (ICD-10) SOB (shortness of breath) ?R06.02 - Shortness of breath (ICD-10) Morbid obesity ?E66.01 - Morbid (severe) obesity due to excess calories (ICD-10) Anxiety ?F41.9 - Anxiety disorder, unspecified (ICD-10) Candidiasis of mouth ?B37.0 - Candidal stomatitis (ICD-10) Positive blood cultures ?R78.81 - Bacteremia (ICD-10) Intractable nausea and vomiting ?R11.2 - Nausea with vomiting, unspecified (ICD-10) Epigastric pain ?R10.13 - Epigastric pain (ICD-10) Wheezing ?R06.2 - Wheezing (ICD-10) Postural orthostatic tachycardia syndrome [POTS] ?G90.A - Postural orthostatic tachycardia syndrome [POTS] (ICD-10) Postural dizziness with near syncope ?R42 - Dizziness and giddiness (ICD-10) ?R55 - Syncope and collapse (ICD-10) Problem with vascular access ?Z78.9 - Other specified health status (ICD-10) CANELO (acute kidney injury) ?N17.9 - Acute kidney failure, unspecified (ICD-10) Dehydration ?E86.0 - Dehydration (ICD-10) Mixed personality disorder ?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 - Other specific personality disorders (ICD-10) Transaminitis ?R74.01 - Elevation of levels of liver transaminase levels (ICD-10) Pulmonary nodule ?R91.1 - Solitary pulmonary nodule (ICD-10) Bacteremia ?R78.81 - Bacteremia (ICD-10) Low folate ?E53.8 - Deficiency of other specified B group vitamins (ICD-10) Psychiatric disturbance ?F99 - Mental disorder, not otherwise specified (ICD-10) Port-A-Cath in place ?Z95.828 - Presence of other vascular implants and grafts (ICD-10) Dysuria ?R30.0 - Dysuria (ICD-10) Fungemia ?B49 - Unspecified mycosis (ICD-10) UTI (urinary tract infection) ?N39.0 - Urinary tract infection, site not specified (ICD-10) Syncope ?R55 - Syncope and collapse (ICD-10) Anemia ?D64.9 - Anemia, unspecified (ICD-10) DVT (deep venous thrombosis) ?I82.409 - Acute embolism and thrombosis of unspecified deep veins of unspecified lower extremity (ICD-10) Back pain ?M54.9 - Dorsalgia, unspecified (ICD-10) Hypokalemia ?E87.6 - Hypokalemia (ICD-10) Social History Smoking Status: Smoker, status unknown Exam Narrative: Exam Narrative: Const: Well-nourished, Well-developed, in mild distress Eyes: PERRL, no conjunctival injection, and symmetrical lids HENT: Atraumatic external nose and ears. Moist mucous membranes. Neck: Symmetric, trachea midline, No thyromegaly. Able to move without issue CVS: RRR, No murmurs or gallops. Peripheral pulses 2+ and equal in all extremities RESP: Unlabored respiratory effort. Clear to auscultation bilaterally. GI: Nontender/Nondistended, No rebound or guarding. MSK:Extremities w/o deformity, Normal Active ROM, no midline spinal tenderness Skin: Warm, Dry. No rashes or lesions. Neuro: Normal Muscle tone, No focal neurological deficits. Psych: Awake, Alert, & Oriented x3. Appropriate mood and affect. Const: Vital Signs, click to edit/add: Vital Signs - 24 hr 03/26/24 17:42 03/26/24 18:38 Temperature 97.3 F L Pulse Rate [Right Pulse Oximeter] 118 H 104 H Respiratory Rate 18 Blood Pressure [Ri ght Upper Arm] 109/68 Pulse Oximetry 97 98 Oxygen Delivery Me thod Room Air Room Air Course Vital Signs Vital signs: Initial Vital Signs Temperature 97.3 F L 03/26/24 17:42 Temperature Source Temporal Artery Scan 03/26/24 17:42 Pulse Rate 118 H 03/26/24 17:42 Respiratory Rate 18 03/26/24 17:42 Blood Pressure 109/68 03/26/24 17:42 Blood Pressure Mean 81 03/26/24 17:42 Blood Pressure Position Sitting 03/26/24 17:42 Pulse Oximetry 97 03/26/24 17:42 Oxygen Delivery Method Room Air 03/26/24 17:42 Vital Signs Temperature 97.3 F L 03/26/24 17:42 Pulse Rate 118 H 03/26/24 17:42 Respiratory Rate 18 03/26/24 17:42 Blood Pressure 109/68 03/26/24 17:42 Pulse Oximetry 97 03/26/24 17:42 Oxygen Delivery Method Room Air 03/26/24 17:42 Temperature 97.3 F L 03/26/24 17:42 Pulse Rate 104 H 03/26/24 18:38 Respiratory Rate 18 03/26/24 17:42 Blood Pressure 109/68 03/26/24 17:42 Pulse Oximetry 98 03/26/24 18:38 Oxygen Delivery Method Room Air 03/26/24 18:38 Medications Administered Medications: Discontinued Medications Generic Name Dose Route Start Last Admin Trade Name Freq PRN Reason Stop Dose Admin Acetaminophen 500 mg 03/26/24 18:01 03/26/24 18:28 Acetaminophen 500 Mg Tablet PO 03/26/24 18:02 500 mg ONCE ONE Administration Medical Decision Making MDM Narrative Medical decision making narrative: Patient is a 38-year-old female presenting for neck pain. This is the 2nd time in 2 days she has been seen for this neck pain. She has also seen at [facility] 2 days ago for this same symptoms. I was able to see her yesterday. Since she is still having this neck pain she is asking for more Dilaudid. I am hesitant to give her more narcotics considering her history and concern for pain seeking behavior. Will give her another dose of 500 mg Tylenol. After this was given she is claiming that nursing staff overdosed her on Tylenol. Of note she did tell me yesterday that staff at [facility] gave her 5500 mg of Tylenol. I will repeat all lab work that was done yesterday along with blood cultures. She did have a positive blood culture of Gram-positive cocci yesterday from her port. I ended up consulting [facility] infectious disease about these findings. I asked if they have any recommendations on repeat imaging for possible new osteomyelitis and was told that they have been paged about this patient several times over the weekend for the same complaints and at this point would say do imaging if I find it clinically relevant. Also informed her about the blood culture of the port. While this very well could be contaminant as the patient is messing with her port quite a bit and did not allow them to D access her port 2 days ago at [facility], we still showed have her admitted for repeat blood cultures to make sure the port is not infected. We did repeat port cultures at this time but were unable to do blood cultures as were having difficulty getting IV access as she is able poor stick. I informed the patient that we will be transferring her to [facility] and she refused saying she does not want to go there. She states she is now staying in [facility] with a friend because she has uncontrollable diarrhea and incontinence. Also today her car right came from [employer] and yesterday when I was speaking to her she states she is living in [place] and she lives directly between [facility] and [place]. I informed her we cannot keep her at this hospital as she has a restricted recipient program patient and she would rather leave [place] then be transferred back to [facility]. She states she is now stable and will be leaving. Of note her heart rate did decrease down to 104. The patient is clinically not intoxicated, free from distracting pain, appears to have intact insight, judgment and reason and in my medical opinion has the capacity to make decisions. The patient is also not under any duress to leave the hospital. In this scenario, it would be battery to subject a patient to treatment against his/her will. I have voiced my concerns for the patient's health given that a full evaluation and treatment had not occurred. I have di scussed the need for continued evaluation to determine if their symptoms are caused by a condition that present risk of or morbidity. Risks including but not limited to , permanent disability, prolonged hospitalization, prolonged illness, were discussed. I discussed the specific benefits of additional treatment, as well as tried offering alternative options in hopes that the patient might be amenable to partial evaluation and treatment which would be medically beneficial to the patient. However, the patient declined my options and insisted on leaving. Because I have been unable to convince the patient to stay, I answered all of their questions about their condition and asked them to return to the ED as soon as possible to complete their evaluation, especially if their symptoms worsen or do not improve. I emphasized that leaving against medical advice does not preclude returning here for further evaluation. I asked the patient to return if they change their mind about the further evaluation and treatment. I strongly encouraged the patient to return to this Emergency Department or any Emergency Department at any time, particularly with worsening symptoms. Discharge Plan Discharge Clinical Impression: Acute neck pain Patient Disposition: Left Against Medical Advice Condition: Stable Instructions: Acute Neck Pain (ED) Additional Instructions: you may return to the emergency department but will not be offering narcotic pain medication for your chronic pain issues. Per your restricted recipient program if at any point you do need admission during further visits we are required to transfer you to [facility]. Prescriptions: No Action hydromorphone 2 mg tablet PO gabapentin 800 mg tablet 800 mg PO 3XD lorazepam 1 mg tablet 1 mg PO Q6H zolpidem 10 mg tablet 10 mg PO DAILY hydromorphone 4 mg tablet 4 mg PO Q6H PRN (Reason: severe pain) cholecalciferol (vitamin D3) 50 mcg (2,000 unit) capsule 50 mcg PO DAILY Eliquis 5 mg tablet 5 mg PO BID Follow Up/Referrals: Segundo Mcclelland MD [Primary Care Provider] - Stand Alone Forms: [employer] Info Instructions
[2024-03-26 18:38] VITALS: PULSE 104; O2SAT 98
[2024-03-26] MEDS: HEPARIN 500 UNIT/5 ML SYRINGE IVF (19:14)
== END 2024-03-26 19:29 | disposition left against medical advice (07) ==
PROVIDERS: Emergency Provider Student in an Organized Health Care Education/Training Program; PCP Family Medicine
DX: M54.2 Cervicalgia (principal)
CPT/HCPCS: 36415; 80048; 80306; 83605; 83735; 84484; 85025; 85651; 86140; 87040; 99283; A9270; J1642

== ENCOUNTER 2024-09-21 21:03 | Emergency (ER) | payer MEDICAID, OTHER, SELFPAY ==
[2024-09-21 21:20] VITALS: BP 135/114; PULSE 111; RESP 16; TEMP 36.8; O2SAT 100; BMI 32.6
--- NOTE | 2024-09-21 22:36 | ED.NAVMDI ---
HPI - Nausea/Vomiting/Diarrhea General Date Seen: 09/21/24 Chief complaint: Nausea/Vomiting Stated complaint: dehydrated Time Seen by Provider: 09/21/24 21:11 Source: patient Mode of arrival: ambulatory Limitations: no limitations History of Present Illness HPI Narrative: Patient is a 38-year-old female presenting to the emergency department for and dehydration. She states the past few days she has been not eating or drinking much in states she caught the stomach bug from her son. She has been having nausea and some vomiting. Has not noticed any diarrhea. Does states she has history of POTS and gastroparesis. Has taking her home Ativan and Benadryl without improvement in her nausea. She does not think she even held abdominal very long. Was told she needs to get fluid by her clinic so she tried to other [facility] ER and was told she had only critical patients can get fluids and she needs try oral rehydration. She then came here as she is unable to tolerate any oral medications. Denies any abdominal pain. Denies lightheadedness, dizziness, chest pain, shortness of breath. States she feels very dehydrated. Also states she hurt her right groin today and was seen at [facility] for it. Was given crutches at that time. She thinks the additional pain from the groin injury make her more nauseated but the pain is tolerable at this time. Related Data Home Medications ?Medication ?Instructions ?Recorded ?Confirmed apixaban 5 mg tablet (Eliquis) 5 mg PO BID 03/25/24 03/25/24 cholecalciferol (vitamin D3) 50 50 mcg PO DAILY 03/25/24 03/25/24 mcg (2,000 unit) capsule gabapentin 800 mg tablet 800 mg PO 3XD 03/25/24 03/25/24 hydromorphone 2 mg tablet mg PO 03/25/24 hydromorphone 4 mg tablet 4 mg PO Q6H PRN severe pain 03/25/24 03/25/24 lorazepam 1 mg tablet 1 mg PO Q6H 03/25/24 03/25/24 zolpidem 10 mg tablet 10 mg PO DAILY 03/25/24 03/25/24 Previous Rx's ?Medication ?Instructions ?Recorded ondansetron 4 mg disintegrating 4 mg PO Q6H #20 tabs 09/21/24 tablet Allergies Allergy/AdvReac Type Severity Reaction Status Date / Time ondansetron (From Zofran) Allergy Severe Verified 09/22/24 00:05 droperidol Allergy Verified 03/25/24 16:32 metoclopramide (From Reglan) Allergy Verified 03/25/24 16:32 NSAIDS (Non-Steroidal Allergy Verified 03/25/24 16:32 Anti-Inflamma prochlorperazine (From Allergy Verified 03/25/24 16:32 Compazine) Sulfa (Sulfonamide Allergy Verified 03/25/24 16:32 Antibiotics) Review of Systems Status of ROS: Reports: 10 or more systems reviewed and unremarkable except as noted in History and below [facility] Medical History Bipolar 1 disorder ?F31.9 - Bipolar disorder, unspecified (ICD-10) Seizure ?R56.9 - Unspecified convulsions (ICD-10) Sepsis ?A41.9 - Sepsis, unspecified organism (ICD-10) Atrial flutter ?I48.92 - Unspecified atrial flutter (ICD-10) CAP (community acquired pneumonia) ?J18.9 - Pneumonia, unspecified organism (ICD-10) Streptococcus viridans infection ?A49.1 - Streptococcal infection, unspecified site (ICD-10) Ulcer of right foot ?L97.519 - Non-pressure chronic ulcer of other part of right foot with unspecified severity (ICD-10) Dysthymic disorder ?F34.1 - Dysthymic disorder (ICD-10) Eating disorder ?F50.9 - Eating disorder, unspecified (ICD-10) Dysplasia of cervix ?N87.9 - Dysplasia of cervix uteri, unspecified (ICD-10) Post traumatic stress disorder (PTSD) ?F43.10 - Post-traumatic stress disorder, unspecified (ICD-10) Major depressive disorder with single episode ?F32.9 - Major depressive disorder, single episode, unspecified (ICD-10) Insomnia ?G47.00 - Insomnia, unspecified (ICD-10) Borderline personality disorder ?F60.3 - Borderline personality disorder (ICD-10) Allergic rhinitis ?J30.9 - Allergic rhinitis, unspecified (ICD-10) Abdominal pain ?R10.9 - Unspecified abdominal pain (ICD-10) Ureteral stone ?N20.1 - Calculus of ureter (ICD-10) contractions ?O47.00 - False labor before 37 completed weeks of gestation, unspecified trimester (ICD-10) Drug-seeking behavior ?Z76.5 - Malingerer [conscious simulation] (ICD-10) GERD (gastroesophageal reflux disease) ?K21.9 - Gastro-esophageal reflux disease without esophagitis (ICD-10) LFT elevation ?R79.89 - Other specified abnormal findings of blood chemistry (ICD-10) Gastric ulcer with hemorrhage ?K25.4 - Chronic or unspecified gastric ulcer with hemorrhage (ICD-10) GI bleed ?K92.2 - Gastrointestinal hemorrhage, unspecified (ICD-10) Headache ?R51.9 - Headache, unspecified (ICD-10) Hematemesis ?K92.0 - Hematemesis (ICD-10) Kathleen-Mustafa tear ?K22.6 - Gastro-esophageal laceration-hemorrhage syndrome (ICD-10) Intertrigo ?L30.4 - Erythema intertrigo (ICD-10) PID (acute pelvic inflammatory disease) ?N73.0 - Acute parametritis and pelvic cellulitis (ICD-10) Chronic narcotic use ?F11.90 - Opioid use, unspecified, uncomplicated (ICD-10) Left lumbar radiculopathy ?M54.16 - Radiculopathy, lumbar region (ICD-10) Positive D dimer ?R79.89 - Other specified abnormal findings of blood chemistry (ICD-10) Asthma ?J45.909 - Unspecified asthma, uncomplicated (ICD-10) Psychogenic nonepileptic seizure ?F44.5 - Conversion disorder with seizures or convulsions (ICD-10) Pleuritic chest pain ?R07.81 - Pleurodynia (ICD-10) Suspected COVID-19 virus infection ?Z20.822 - Contact with and (suspected) exposure to COVID-19 (ICD-10) SOB (shortness of breath) ?R06.02 - Shortness of breath (ICD-10) Morbid obesity ?E66.01 - Morbid (severe) obesity due to excess calories (ICD-10) Anxiety ?F41.9 - Anxiety disorder, unspecified (ICD-10) Candidiasis of mouth ?B37.0 - Candidal stomatitis (ICD-10) Positive blood cultures ?R78.81 - Bacteremia (ICD-10) Intractable nausea and vomiting ?R11.2 - Nausea with vomiting, unspecified (ICD-10) Epigastric pain ?R10.13 - Epigastric pain (ICD-10) Wheezing ?R06.2 - Wheezing (ICD-10) Postural orthostatic tachycardia syndrome [POTS] ?G90.A - Postural orthostatic tachycardia syndrome [POTS] (ICD-10) Postural dizziness with near syncope ?R42 - Dizziness and giddiness (ICD-10) ?R55 - Syncope and collapse (ICD-10) Problem with vascular access ?Z78.9 - Other specified health status (ICD-10) CANELO (acute kidney injury) ?N17.9 - Acute kidney failure, unspecified (ICD-10) Dehydration ?E86.0 - Dehydration (ICD-10) Mixed personality disorder ?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 - Other specific personality disorders (ICD-10) Transaminitis ?R74.01 - Elevation of levels of liver transaminase levels (ICD-10) Pulmonary nodule ?R91.1 - Solitary pulmonary nodule (ICD-10) Bacteremia ?R78.81 - Bacteremia (ICD-10) Low folate ?E53.8 - Deficiency of other specified B group vitamins (ICD-10) Psychiatric disturbance ?F99 - Mental disorder, not otherwise specified (ICD-10) Port-A-Cath in place ?Z95.828 - Presence of other vascular implants and grafts (ICD-10) Dysuria ?R30.0 - Dysuria (ICD-10) Fungemia ?B49 - Unspecified mycosis (ICD-10) UTI (urinary tract infection) ?N39.0 - Urinary tract infection, site not specified (ICD-10) Syncope ?R55 - Syncope and collapse (ICD-10) Anemia ?D64.9 - Anemia, unspecified (ICD-10) DVT (deep venous thrombosis) ?I82.409 - Acute embolism and thrombosis of unspecified deep veins of unspecified lower extremity (ICD-10) Back pain ?M54.9 - Dorsalgia, unspecified (ICD-10) Hypokalemia ?E87.6 - Hypokalemia (ICD-10) Social History Smoking Status: Smoker, status unknown How often do you have a drink containing alcohol: never AUDIT-C Alcohol total score: 0 Non-prescribed substance use: denies use Exam Narrative: Exam Narrative: Const: Well-nourished, Well-developed, in mild distress Eyes: PERRL, no conjunctival injection, and symmetrical lids HENT: Atraumatic external nose and ears. Moist mucous membranes. Neck: Symmetric, trachea midline, No thyromegaly. CVS: Tachycardic, No murmurs or gallops. Peripheral pulses 2+ and equal in all extremities RESP: Unlabored respiratory effort. Clear to auscultation bilaterally. GI: Nontender/Nondistended, No rebound or guarding. MSK:Extremities w/o deformity, decreased range of motion right hip secondary to pain Skin: Warm, Dry. No rashes or lesions. Neuro: Normal Muscle tone, No focal neurological deficits. Psych: Awake, Alert, & Oriented x3. Appropriate mood and affect. Const: Vital Signs, click to edit/add: Vital Signs - 24 hr 09/21/24 21:20 Temperature 98.3 F Pulse Rate [Pulse Oximeter] 111 H Respiratory Rate 16 Blood Pressure [Ri ght Upper Arm] 135/114 H Pulse Oximetry 100 Oxygen Delivery Me thod Room Air Course Vital Signs Vital signs: Initial Vital Signs Temperature 98.3 F 09/21/24 21:20 Temperature Source Temporal Artery Scan 09/21/24 21:20 Pulse Rate 111 H 09/21/24 21:20 Respiratory Rate 16 09/21/24 21:20 Blood Pressure 135/114 H 09/21/24 21:20 Blood Pressure Mean 121 H 09/21/24 21:20 Blood Pressure Position Sitting 09/21/24 21:20 Pulse Oximetry 100 09/21/24 21:20 Oxygen Delivery Method Room Air 09/21/24 21:20 Vital Signs Temperature 98.3 F 09/21/24 21:20 Pulse Rate 111 H 09/21/24 21:20 Respiratory Rate 16 09/21/24 21:20 Blood Pressure 135/114 H 09/21/24 21:20 Pulse Oximetry 100 09/21/24 21:20 Oxygen Delivery Method Room Air 09/21/24 21:20 Temperature 98 F 09/22/24 02:06 Pulse Rate 107 H 09/22/24 02:06 Respiratory Rate 16 09/22/24 02:06 Blood Pressure 150/99 H 09/22/24 02:06 Pulse Oximetry 90 09/22/24 02:06 Oxygen Delivery Method Room Air 09/22/24 02:06 Medications Administered Medications: Discontinued Medications Generic Name Dose Route Start Last Admin Trade Name Mindy PRN Reason Stop Dose Admin Diphenhydramine HCl 25 mg 09/22/24 01:31 09/22/24 01:59 Diphenhydramine 50 Mg/Ml Inj IM 09/22/24 01:32 25 mg ONCE ONE Administration Sodium Chloride 500 mls @ 1,000 mls/hr 09/21/24 21:28 09/22/24 02:53 0.9 % Sodium Chloride 500 Ml IV 09/21/24 21:57 Infused .Q30M ONE Infusion Sodium Chloride 500 mls @ 1,000 mls/hr 09/21/24 21:28 09/22/24 03:49 0.9 % Sodium Chloride 500 Ml IV 09/21/24 21:57 Infused .Q30M ONE Infusion Lorazepam 0.5 mg 09/22/24 01:31 09/22/24 02:00 Lorazepam 2 Mg/Ml Inj IM 09/22/24 01:32 0.5 mg ONCE ONE Administration Ondansetron HCl 4 mg 09/21/24 21:28 09/22/24 02:55 Ondansetron 2 Mg/Ml Inj IVP 09/21/24 21:29 Not Given ONCE ONE MDM - Nausea/Vomiting/Diarrhea MDM Narrative Medical decision making narrative: Patient is a 38-year-old female presenting to emergency department for concern of dehydration. She is also having nausea. Is not having any abdominal pain at this time. Due that I do not believe imaging is needed but I will do a CBC, CMP, lipase, test to check for signs of pancreatitis, electrolyte abnormalities, gallbladder disease or any other signs of infection. Very likely symptoms are all from a GI bug and dehydration. She will be given a L of normal saline and Zofran for her nausea. It was difficulty for nurses to get a line so that was delayed. HEAD MACHINE FEEDER had to be called in. Patiented signed out to my colleague pending labs and medications once line is placed Discharge Plan Discharge Clinical Impression: Dehydration Patient Disposition: Home, Self-Care Condition: Improved Instructions: Dehydration (DC) Additional Instructions: Make sure stay well hydrated. Take small amounts of fluids as tolerated, pedialyte or gaterade. Return for new worsening symptoms. Activity Level: No Restrictions Discharge Diet: Regular Prescriptions: New ondansetron 4 mg tablet,disintegrating 4 mg PO Q6H Qty: 20 0RF No Action hydromorphone 2 mg tablet PO gabapentin 800 mg tablet 800 mg PO 3XD lorazepam 1 mg tablet 1 mg PO Q6H zolpidem 10 mg tablet 10 mg PO DAILY hydromorphone 4 mg tablet 4 mg PO Q6H PRN (Reason: severe pain) cholecalciferol (vitamin D3) 50 mcg (2,000 unit) capsule 50 mcg PO DAILY Eliquis 5 mg tablet 5 mg PO BID Follow Up/Referrals: Segundo Mcclelland MD [Primary Care Provider] - Stand Alone [facility]: [facility] Info Instructions
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
--- OUTSIDE RECORDS SUMMARY | 2024-09-21 22:37 | XMS_ITS | Clinical Summary ---
Author Organization [facility] [place] [address] [place] [address] Phone Care Team Providers Care Medical Billing Assistant Name Role Phone Tony De La Cruz Primary Care Provider Unavailabl e Allergies Active Allergy Reactions Criticality Noted Date Comments Naproxen Sodium Anaphylaxis High 07/19/2020 Prochlorperazine Muscle pain 07/19/2020 Metoclopramide Hcl Muscle pain 07/19/2020 Sulfa (Sulfonamide Antibiotics) Anaphylaxis High Medications clonazePAM (KlonoPIN) 1 mg tablet Take 1 mg by mouth 2 (two) times per day. Active Social History Tobacco Use Types Packs/Day Years Used Date Smoking Tobacco: Never Smokeless Tobacco: Never Alcohol Use Standard Drinks/Week Comments Yes 0 (1 standard drink = 0.6 oz pur e alcohol) OCCASSIONALLY Comments No Sex and Gender Information Value Date Recorded Sex Assigned at Not on file Legal Sex Female 4:57 PM CDT Gender Identity Not on file Sexual Orientation Not on file Last Filed Vital Signs Vital Sign Reading Time Taken Comments Blood Pressure 149/75 07/19/2020 7:13 PM CDT Pulse 108 07/19/2020 7:13 PM CDT Temperature 36 ??C (96.8 ??F) 07/19/2020 5:13 PM CDT Respiratory Rate 15 07/19/2020 7:13 PM CDT Oxygen Saturation 98% 07/19/2020 7:13 PM CDT Inhaled Oxygen Concentration - - Weight 136 kg (300 lb) 07/19/2020 5:13 PM CDT Height 167.6 cm (5' 6) 07/19/2020 5:13 PM CDT Body Mass Index 48.42 07/19/2020 5:13 PM CDT Plan of Treatment Health Maintenance Due Date Last Done Comments Varicella Vaccines (1 of 2 - 13+ 2-dose series) 08/13/2000 IPV Vaccines (3 of 3 - 4-dose series) 09/15/2005 03/16/2005, 09/07/1991 Pap Smear 2006 Preventative Visit 18-64 12/10/2009 12/10/2008, 05/2 04/2004 Cervical Cancer Screening 2015 HPV/Cotest 2015 DTaP,Tdap,and Td Vaccines (4 - Td or Tdap) 02/06/2024 02/05/2014, 02/05/2014, 03/16/2005, Additional history exists COVID-19 Vaccine ( season) 2024 Influenza Vaccine (#1) 2024 3, 12/08/2012, 08/29/2012, Additional history exists RSV Vaccine (1 - 1-dose 75+ series) 2060 MMR Vaccines Completed 07/16/2000, 08/11/1988 Hepatitis A Vaccines Aged Out 03/16/2005 No long er eligible based on patient's age to complete this topic Hepatitis B Vaccines Completed 03/16/2005, 03/16/2005, 08/13/2000, Additional history exists Meningococcal Vaccine Aged Out 03/16/2005, 005 No longer eligible based on patient's age to complete this topic HIB Vaccines Aged Out No longer eligi ble based on patient's age to complete this topic HPV Vaccines Aged Out No longer eligi ble based on patient's age to complete this topic Pneumococcal Aged Out No longer eligi ble based on patient's age to complete this topic RSV Aged Out No longer eligi ble based on patient's age to complete this topic Care Teams Medical Billing Assistant Relationship Specialty Start Date End Date Tony De La Cruz PCP - General Family Medicine 07/19/20
--- OUTSIDE RECORDS SUMMARY | 2024-09-21 22:37 | XMS_ITS | Continuity of Care Document ---
Author Organization [facility] Address [address] [place] [address] Phone Care Team Providers Care Oiler Bander Name Role Phone Debbie Christianson CNP Unavailable Unavailable Allergies, Adverse Reactions, Alerts Substance Reaction Status Criticality ONDANSETRON HCL hives Active No Informati on droperidol swollen tongue Active No Informatio n METOCLOPRAMIDE HCL anxiety Active No Inform ation PROCHLORPERAZINE MALEATE anxiety Active No Information PROCHLORPERAZINE EDISYLATE anxiety Active N o Information NAPROXEN SODIUM Anaphylaxis Active No Informati on WARNIN allergy(ies) could not be collected because the type is not supported. Please contact the source practice for further details. Medications Medication Instructions Dosage Effective Dates (start - stop) Status Comments Actigall 300 mg capsule take (3.25MG/KG) by oral route 3 times every day with food 3.25 MG/KG - Active Procedures Procedure Date Offic/outpt E&m Estab Low-mod 4 Offic/outpt E&m Estab Low-mod 4 Offic/outpt E&m Estab Low-mod 4 QA DONE Est Pt Eval 15 Min Offic/outpt E&m Estab Mod-hi 2 14 Offic/outpt E&m Estab Mod-hi 2 14 Offic/outpt E&m Estab Mod-hi 2 14 Offic Cons New/estab Mod-hi 60 14 QA DONE Advance Directives Directive Yes / No Effective Date File Name No Information Encounters Encounter Description Practice Location Reason(s) For Visit Diagnoses Date Provider Providers Copied on Encounter [facility], [address], [place], [place], [id number], [place] tel:[phone] [facility] No Information Sammy Lewis. [address], [place], [place], [id number], [place]. tel:[phone] Referring Provider: Sam Clancy MD, [address] [place], [address]. tel:[phone] Offic/outpt E&m Estab Low-mod [facility], [address], [place], [place], [id number], [place] tel:[phone] [facility] No Information No Information Referring Provider: Sam Clancy MD, [address] [place], [address]. tel:[phone] Offic/outpt E&m Estab Low-mod [facility], [facility], [address], [place], [place], [id number], [place] tel:[phone] [facility] No Information Katlyn Sultana. [address], [address], [place], [place], [id number], [place]. tel:[phone] Referring Provider: Sam Clancy MD, [address] [place], [address]. tel:[phone] [facility], [address], [place], [place], [id number], [place] tel:[phone] [facility] No Information No Information Referring Provider: Sam Clancy MD, [address] [place], [address]. tel:[phone] Est Pt Eval 15 Min [facility], [facility], [address], [place], [place], [id number], [place] tel:[phone] [facility] No Information 4 Comfort Solis. [address], [place], [place], [id number], [place]. tel:[phone] Referring Provider: Sam Clancy MD, [address], [place], [address]. tel:[phone] Offic/outpt E&m Estab Mod-hi 2 [facility], [facility], [address], [place], [place], [id number], [place] tel:[phone] [facility] No Information 4 Chuck Luong. [address], [address], [place], [address], [place]. tel:[phone] Referring Provider: Sam Clancy MD, [address], [place], [address]. tel:[phone] Offic/outpt E&m Estab Mod-hi 2 [facility], [facility], [address], [place], [place], [id number], [place] tel:[phone] [facility] No Information 4 Cody King. [address], [place], [place], [id number], [place]. tel:[phone] Referring Provider: Sam Clancy MD, [address], [place], [address]. tel:[phone] Offic/outpt E&m Estab Mod-hi 2 [facility], [facility], [address], [place], [place], [id number], [place] tel:[phone] [facility] No Information 4 Arslandiana Luong. [address], [address], [place], [address], [place]. tel:[phone] Referring Provider: Sam Clancy MD, [address] [place], [address]. tel:[phone] Offic Cons New/estab Mod-hi 60 Sina, [facility], [address], [place], [place], [id number], [place] tel:[phone] [facility] No Information 4 Chuck Luong. [address], [address], [place], [address], [place]. tel:[phone] Referring Provider: Sam Clancy MD, [address] [place], [address]. tel:[phone] Family History Family Member Type Diagnosis Age At Onset No Information Payers Payer name Insurance type Covered libertarian ID Gio llanes(s) Medical Assistance [facility] [id number] Social History Type Description Quantity Date Captured Comments Sex Female Smoking Status No Information Chief Complaint And Reason For Visit No Information Reason For Referral Reason For Referral No Information History Of Present Illness Encounter Date Complaint History Of Prese nt Illness No Information Functional Status Date Functional Assessmen t No Information Instructions Date Instruction Additional Infor mation No Information Assessments Type Assessment Date No Information Patient Care Teams Name Effective Dates (start - stop) Status Members No Information
--- OUTSIDE RECORDS SUMMARY | 2024-09-21 22:37 | XMS_ITS | Continuity of Care Document ---
Author Organization [facility] Address [address] [place] [address] Phone Care Team Providers Care Batch Still Operator Name Role Phone Tawanda Lombardi Unavailable Unavailable Procedures Procedure Date Followup Hospital Care, Brief Advance Directives Directive Yes / No Effective Date File Name No Information Encounters Encounter Description Practice Location Reason(s) For Visit Diagnoses Date Provider Providers Copied on Encounter Followup Hospital Care, Brief [facility], [address], [place], [place], [id number], [place] tel:[phone] [facility] No Information Rivka Neff. [facility] [place], [address] [place] [address], [id number], [place]. tel:[phone] Referring Provider: Tawanda Nelson, [facility] [address], [address]. tel:[phone] Family History Family Member Type Diagnosis Age At Onset No Information Payers Payer name Insurance type Covered republican ID Chevycrystal kellieji(s) Ernesto LEEANNE [facility] 2021 CI [id number] Social History Type Description Quantity Date Captured [...]
--- OUTSIDE RECORDS SUMMARY | 2024-09-21 22:38 | XMS_ITS | Clinical Summary ---
Author Organization [facility] Address [address] [place] [address] Care Team Providers [employer] Marker Name Role Phone Segundo Mcclelland MD Unavailable [phone] Segundo Mcclelland MD Unavailable [phone] Segundo Mcclelland MD Primary Care Provider + Kingsley Garcia MD Unavailable Segundo Mcclelland MD Unavailable [phone] Master Shea PA-C Unavailable Allyssa Justice MD Unavailable [phone] Genaro Christian MD Unavailable Master Shea PA-C Unavailable Sienna Guillermo DO Unavailable Allyssa Justice MD Unavailable [phone] Declan Leavitt MD Unavailable Ugo Ochoa MD Unavailable Allergies Active Allergy Reactions Criticality Noted Date Comments Chlorhexidine Itching,Swelling High 06/05/2023 Prochlorperazine Other (See Comments) Medium Muscle twitching Contrast Dye Hives,Itching,Cough Low 04/24/2014 Pt can tolerate if given 25 mg benadryl PIV prior to contrast Droperidol Swelling High seizures, tongue swelling Hydroxyzine Palpitations Low 04/06/2024 Reports HR into the 160's Metoclopramide Other (See Comments) Medium 01/22/2006 Muscle twitching w IV only; tolerates oral fine Metoclopramide Hcl 03/25/2024 Nsaids Anaphylaxis High 04/24/2006 Olanzapine Medium 06/27/2023 Muscle twitching Promethazine Medium 06/02/2023 Muscles twitch on own, pt freaks out Phenothiazines Anxiety,Muscle Pain (Myalgia) Medium 07/27/2006 Dystonic reaction, delirium Sulfa Antibiotics Anaphylaxis High 06/11/2008 SOB, swelling-fingers Iron Sucrose 03/08/2024 Allergic reaction, nausea, fever Ondansetron Hcl Other (See Comments) 09/10/2023 Pt does not want to receive. She reports trouble breathing, flushing, itching, long QT Medications gabapentin (NEURONTIN) 800 MG tablet Take 1,200 mg by mouth 3 times daily. Active EPINEPHrine (ANY BX GENERIC EQUIV) 0.3 MG/0.3ML injection 2-pack Inject 0.3 mLs (0.3 mg) into the muscle once as needed for anaphylaxis 1 each 04/17/20 21 Active Additional Information Patient not taking.Informant: Self, Reported on 06/28/2024 zolpidem (AMBIEN) 10 MG tablet Take 10 mg by mouth At Bedtime 12/17/19 23 Active naloxone (NARCAN) 4 MG/0.1ML nasal spray [place] 4 mg into one nostril alternating nostrils once as needed for opioid reversal 06/28/20 23 Active LORazepam (ATIVAN) 1 MG tablet Take 1 mg by mouth every 6 hours as needed for anxiety Active childrens multivitamin w/iron (FLINTSTONES COMPLETE) chewable tablet Take 1 chew tab by mouth daily Active fluconazole (DIFLUCAN) 200 MG tabletIndications :Osteomyelitis, unspecified site, unspecified type (H) Take 1 tablet (200 mg) by mouth three times a week 18 tablet 04/12/20 24 Active Additional Information Patient not taking.Reported on 06/28/2024 pantoprazole (PROTONIX) 40 MG EC tablet Take 40 mg by mouth daily Active apixaban ANTICOAGULANT (ELIQUIS) 5 MG tabletIndications :DVT-PE Prophylaxis Take 1 tablet (5 mg) by mouth 2 times daily 180 tablet 1 05/11/20 24 Active diphenhydrAMINE (BENADRYL) 50 MG/ML injectionIndicati ons:Gastroparesis Inject 0.5 mLs (25 mg) into the vein every 6 hours as needed for other 30 mL 1 06/02/20 24 Active Additional Information Patient not taking.Reported on 06/28/2024 sodium chloride 0.9% infusionIndicatio ns:Gastroparesis Inject 1,000 mLs into the vein as needed for other (Wednesday with IV antibiotic) 25990 mL 06/02/20 Active Additional Information Patient not taking.Reported on 06/28/2024 sucralfate (CARAFATE) 1 GM tabletIndications :Kathleen-Mustafa tear Take 1 tablet (1 g) by mouth 4 times daily 120 tablet 1 06/09/20 Active Additional Information Patient not taking.Reported on 08/22/2024 folic acid (FOLVITE) 400 MCG tabletIndications :Anemia due to blood loss, acute Take 1 tablet (400 mcg) by mouth daily 90 tablet 1 06/09/20 24 Active HYDROmorphone (DILAUDID) 4 MG tabletIndications :Tooth pain Take 1 tablet (4 mg) by mouth every 6 hours as needed for severe pain. 10 tablet 09/14/20 24 Active ferrous sulfate (FE-JOSE ALBERTO IRON) 75 (15 FE) MG/ML oral dropsIndications: Anemia due to blood loss, acute Take 5ml by mouth daily 50 mL 1 09/21/20 24 Active FE-JOSE ALBERTO IRON 75 (15 Fe) MG/ML oral dropsIndications: Anemia due to blood loss, acute TAKE 5 MLS (75 MG) BY MOUTH DAILY 50 mL 1 08/08/20 24 024 Discontin ued(Reord er (No AVS)) HYDROmorphone (DILAUDID) 4 MG tabletIndications :Tooth pain Take 1 tablet (4 mg) by mouth every 6 hours as needed for severe pain. 10 tablet 08/18/20 24 024 Discontin ued(Reord er (No AVS)) Active Problems Patient Care Coordination No te Formatting of this note migh t be different from the original. EMERGENCY CARE PLAN At each Emergency Department visit, we will evaluate this patient to determine if an emergency medical condition is present. Brief History of Condition: Ivelisse Contreras has a well-documented history of chronic underlying illness, drug-seeking behavior and ED recidivism, and borderline personality and factitious disorder. ED Care Plan and PMH summary are below: Summary: Chronic Pain Syndrome: Longstanding opioid use disorder with prescriptions managed by her primary doctor, Dr. Mcclelland (oral dilaudid, IV diphenhydramine). There is extensive EMR documentation of drug-seeking, factitious, and manipulative behavior to obtain IV opioids, IV benzodiazepines, and IV diphenhydramine. Chronic gastroparesis & recurrent GI bleeding: Frequently presents with reported nausea, vomiting, and hematemesis related to gastroparesis and/or opioid withdrawal. GI bleeds stem from repetitive vomiting, anticoagulated status, and known congestive gastropathy versus Kathleen-Mustafa tears. Esophagitis has been noted on previous endoscopy. Follows with Dr. Alvares for GI. Transfusion is occasionally needed. Her numerous allergies have led to the use of diphenhydramine (which she requests IV) vs. standard anti-emetics. Orthostatic hypotension/POTS & Chronic PICC / vascular access: Patient is chronically tachycardic (100-120) and receives home infusions NS 1 L 3x/week, including IV diphenhydramine as outpatient. She has had numerous reassuring ED workups regarding syncope. PICC / vascular access issues are managed by her PCP via outpatient IR. Recurrent PICC complications have led to the recommendation that it be discontinued; the patient has declined. ED recidivism: Patient is well-established with her outpatient GI & PCP team and infusion care yet frequents numerous and other EDs for IV fluids and requesting pain benzodiazepine medications as well as IV diphenhydramine. She has also requested the ED refill opioids and resolve non-urgent PICC replacement issues. Factitious disorder & concerns for malingering: EMR documents concerns for self-injury, self-induced vomiting, skin-picking to replicate rash / allergic reaction, and reporting a variety of new concerns during the visit to delay discharges (e.g., reporting new complaints to staff prior to DC). Bacteremia. Recurrent bacteremia has been attributed to longstanding PICC use and recurrent line infections, with complications including osteomyelitis in the spring. History of pulmonary embolism. Patient is on lifelong anticoagulation due to recurrent PEs. ED care plan: Chronic Pain Syndrome: The [facility] Pain Policy applies: No IV/IM Opioids or prescription opioids Recommend standard therapies for potential opioid withdrawal (has declined outpatient opioid use disorder therapy previously) Single-dose ORAL-only dilaudid 2 mg tab at the discretion of the provider Single-dose ORAL-only lorazepam 1 mg tab at the discretion of the provider Given EMR-documented factitious disorder and concerns for malingering: Avoid IV/IM benzodiazepines No controlled substance prescriptions at discharge Chronic gastroparesis & recurrent GI bleeding: Recommend screening for serious life-threatening bleeding. Avoid standard PO challenge given history of factitious disorder and self- induced vomiting. Care team should monitor for and document resolution of emesis. If indicated, administer fluids for dehydration or tachycardia For emesis witnessed in the department, may administer single dose diphenhydramine 25 mg IV as infusion in 50+ mL NS bag (i.e., not push 50 mg IV). Goal is to avoid/minimize sedation from IV diphenhydramine. Limit oral ativan. Oral ativan 1 mg PRN has been used in the past. Avoid IV benzodiazepines. Orthostatic hypotension/POTS: If indicated, ED provider may administer fluids for any significant dehydration or tachycardia. Direct the patient to follow up with PCP regarding any PICC replacement / complication issues that do not require hospitalization. ED Recidivism & PICC / vascular access issues: Please reinforce outpatient management of PICC / vascular access, opioid prescriptions, urgent/routine endoscopy care. Avoid any prescription refills Direct the patient to follow up with PCP regarding any PICC replacement / complication issues that do not require hospitalization. If main room needed, recommend placing within view of ED RN team given concerns for self-induced vomiting, etc. Hospitalization: Unnecessary hospitalization of this patient is detrimental to his plan of care and overall well-being. Hospitalization should be avoided unless clearly medically indicated. Relevant Medical History: Borderline personality disorder, chronic factitious disorder, anxiety/depression, eating disorder, endometriosis, migraines, SBO, PID, PTSD, pulmonary embolism, spinal osteomyelitis, chronic pain, gastroparesis Relevant Surgical History: Lumbar discectomy, cholecystectomy, hysterectomy, appendectomy, oophorectomy (right) Past imaging: CT: 24 in the 12 months prior to initiation of care plan, mostly at [facility] in ED/inpatient (May 2023- April 2024) MRI: 4 in the 12 months prior to initiation of care plan. (May 2023-April 2024) Ultrasound: 5 in the 12 months prior to initiation of care plan. (May 2023-April 2024) [facility] 12 months prior to initiation of Care Plan: 60 (May 2023-April 2024) [facility] Admissions in 12 months prior to initiation of Care Plan: 11 (4 at OSHs) (May 2023-April 2024) General Concepts: Chronic Pain The department's chronic pain policy will apply. This states that no parenteral (intravenous/IV or intramuscular/IM) opiates will be given in the Emergency Department and no prescriptions for opiates will be provided. It is suggested that all opiate prescriptions come from a single provider, usually the primary physician or a pain clinic. This applies to chronic pain including acute exacerbations of chronic pain and new sites of pain in those with migratory chronic pain syndromes. Non-opiate pain management will be offered. Imaging: Frequent radiographic imaging represents a significant risk to this patient's health. Hospitalization: Unnecessary hospitalization of this patient is detrimental to her plan of care and overall well-being. Hospitalization should be avoided unless clearly medically indicated. PCP: Segundo Mcclelland MD (patient restricted to this physician) Follow up plan after an ED visit: Primary care physician Initiated: June 10, 2024 Problem Noted Date Diagnosed Date Anticoagulated 05/06/2024 Hematemesis with nausea 05/06/2024 Chest pain, unspecified type 05/06/2024 PICC (peripherally inserted central catheter) in place 04/11/2024 Overview (04/11/2024): Per Dr. Garrett. PICC line should not be removed for any reason. An IR consult should be placed first. Hypokalemia 03/05/2024 Back pain 03/05/2024 Acute embolism [...] 08/30/2023 Dehydration 07/28/2023 CANELO (acute kidney injury) 07/28/2023 Problem with vascular access 07/28/2023 Postural dizziness with near syncope 07/28/2023 POTS (postural orthostatic tachycardia syndrome) 07/28/2023 F11.2 - Episodic opioid dependence 07/23/2023 Near syncope 06/18/2023 Acute kidney injury 06/18/2023 Nausea and vomiting, unspecified vomiting type 0 06/04/2023 Wheezing 06/04/2023 Epigastric pain 06/04/2023 Intractable nausea and vomiting 05/05/2023 Chronic pain of both knees 03/08/2023 Positive blood culture 08/15/2021 Suspected COVID-19 virus infection 10/27/2020 Candidiasis of mouth 05/09/2020 Shortness of breath 02/29/2020 Anxiety 08/15/2018 Pleuritic chest pain 04/05/2018 Psychogenic nonepileptic seizure 02/24/2018 Overview (09/05/2023): Has had negative EEG in the past February 27 2023 IMO Update History of asthma 01/14/2018 Overview (01/14/2018): Hx of asthma as a child. Has [...] tachycardia (POTS) 01/29/20 06 Allergic rhinitis 10/16/2005 Overview (08/29/2015): Problem list name updated by automated process. Provider to review Borderline personality disorder 09/14/2005 Overview (09/05/2023): Overview: LW Onset: 66Ldg89 LW Onset: 77Mku03 ; Borderline Personality Insomnia 09/14/2005 Overview (09/05/2023): Overview: LW Onset: 53Nav09 LW Onset: 15Pjj74 ; Insomnia NOS Major depressive disorder, single episode 2004 Overview (09/05/2023): Overview: LW Onset: 91Hft14 LW Onset: 18Wvc76 ; Depression Major NOS Posttraumatic stress disorder 09/14/2005 Overview (10/29/2023): Overview: LW Onset: 08Jdy75 LW Onset: 26Uis48 ; Post Traumatic Stress Disorder Prolonged Doing therapy at [facility]. Childhood trauma Dysplasia of cervix 06/29/2005 Overview (08/29/2015): Problem list name updated by automated process. Provider to review Eating disorder 04/23/2004 Overview (08/29/2015): Problem list name updated by automated process. Provider to review Dysthymic disorder 04/23/2004 Resolved Problems Problem Noted Date Diagnosed Date Resolved Date Ulcer of right foot, limited to breakdown of skin 11/25/2023 01/17/2024 Streptococcus viridans infection 12/28/2020 04/05/2023 CAP (community acquired pneumonia) 12/24/2020 01/01/2023 Pneumonia of right lung due to infectious organism, unspecified part of lung 12/23/202001/01 Intractable nausea and vomiting 05/08/2020 01/01/2023 Morbid obesity 05/04/2018 06/02/2024 Fever 07/20/2017 01/14/2018 Atrial flutter 07/27/2016 01/01/2023 Vomiting 04/09/2016 01/01/2023 Nausea & vomiting 09/21/2015 01/01/2023 Indication for care in labor or delivery 12/28/2013 01/14/2018 Protein-calorie malnutrition 12/06/2013 01/01/2023 Opioid type dependence, continuous 12/06/2013 01/01/2023 Abdominal pain complicating , antepartum 10/31/2013 01/14/2018 Meningitis 11/24/2012 03/22/2019 (spontaneous vaginal delivery) 04/07/2012 01/14/2018 Nausea and vomiting 11/16/2011 01/01/20 23 Acute diarrhea 11/16/2011 01/01/2023 Hyperemesis gravidarum 11/16/201101/01 Sepsis 11/04/2011 01/01/2023 Overview (08/30/2015): Problem list name updated by automated process. Provider to review Intermittent asthma 07/09/2009 01/14/20 18 Dysplasia of cervix 05/22/2009 01/01/20 23 Overview (05/22/2009): Persistent -involving endocervix -history of prior treatment (cryocautery) Papanicolaou smear of vagina with low grade squamous intraepithelial lesion (LGSIL) 05/13/2009 05/22/2009 Seizure 05/03/2008 09/10/2023 High-risk , young primigravida 04/17/2008 12/10/2008 Overview (08/29/2012): (Problem list name updated by automated process. Provider to review and confirm.) Mild persistent asthma 10/16/200507/09 Bipolar I disorder, most rec ent episode depressed 09/18/2004 01/17/2024 Dysplasia of cervix (uteri) 05/29/2004 06/29/2005 Overview (06/21/2013): Problem list name updated by automated process. Provider to review and confirm Encounters Date Type Department Care Team Description 09/21/2024 6:03 PM CDT - 09/21/2024 7:34 PM CDT Emergency [facility] Emergency Dept [address] [place] [address] Lesley Nair MD Nausea, vomiting, and diarrhea Discharge Disposition: Left Without Being Seen 09/21/2024 Travel 09/20/2024 MyC Medical Advice [facility] [place] [address] [place] [phone] Segundo Mcclelland MD Anemia due to blood loss, acute 09/14/2024 Telephone [facility] [address] [place] [phone] Segundo Mcclelland MD 09/13/2024 MyC Refill [facility] [address] [place] [address] Segundo Mcclelland MD Refill Request 09/12/2024 9:12 PM CDT - 09/12/2024 10:40 PM CDT Emergency [facility] Emergency Dept [address] [place] [address] Jarrett Burris MD Facial pain; Pain, dental Discharge Disposition: Home or Self Care 09/12/2024 Travel 09/12/2024 MyC Medical Advice [facility] [place] [address] [place] [phone] Krystina Bee RN 09/12/2024 Telephone [facility] [address] [place] [phone] Segundo Mcclelland MD Refill Request 09/06/2024 Hospital Encounter [facility] [address] [phone] 09/01/2024 Telephone [facility] [address] [place] [phone] Segundo Mcclelland MD Forms (Restricted Recipient Specialty Referral- [facility]) 08/30/2024 Telephone [facility] [address] [place] [phone] Segundo Mcclelland MD Patient/info Update 08/30/2024 Hospital Encounter [facility] [address] [phone] Ugo Ochoa MD 08/29/2024 MyC Medical Advice [facility] [address] [address] Ugo Ochoa MD 08/22/2024 1:00 PM CDT Office Visit [facility] [address] [address] Pennie Bernal MD Manske, Jacob, MD Intracranial hypotension (Primary Dx); Episode of transient neurologic symptoms 08/22/2024 MyC Medical Advice [facility] [address] [address] [facility] 08/22/2024 Telephone [facility] [address] [phone] Ugo Ochoa MD Patient Request ([facility]/Dr. Ochoa) 08/22/2024 Travel 08/22/2024 PRE VISIT [facility] Neurology [facility] [address] [place] [phone] Ugo Ochoa MD *-*INCOMING RECORDS*-* 08/21/2024 Telephone [facility] [address] [place] [phone] Segundo Mcclelland MD Referral 08/16/2024 MyC Refill [facility] [address] [place] [phone] Segundo Mcclelland MD Refill Request 08/14/2024 Telephone [facility] [address] [place] [phone] Segundo Mcclelland MD Physician Communication 08/14/2024 MyC Medical Advice [facility] [address] [place] [phone] Segundo Mcclelland MD Medication Request 08/13/2024 9:03 PM CDT - 08/13/2024 11:59 PM CDT Emergency [facility] Emergency Dept [address] [place] [phone] Livia Gutierrez MD Dental caries Discharge Disposition: Home or Self Care 08/13/2024 Travel 08/08/2024 Refill [facility] [address] [place] [phone] Segundo Mcclelland MD Medication Refill 08/03/2024 Telephone [facility] [address] [place] [phone] Segundo Mcclelland MD 08/03/2024 Travel 08/02/2024 10:16 PM CDT - 08/03/2024 3:53 AM CDT Emergency [facility] Emergency Dept [address] [place] [phone] Santhosh Sánchez MD Dental infection Discharge Disposition: Home or Self Care 07/29/2024 [facility] [address] [place] [address] Segundo Mcclelland MD Referral 07/20/2024 [facility] [address] [place] [address] Segundo Mcclelland MD Orders 07/19/2024 Telephone [facility] [address] [place] [phone] None Referral (Neurology referral) 07/18/2024 10:43 PM CDT - 07/19/2024 6:19 AM CDT Emergency [facility] Emergency Department [address] [place] [phone] Miguel Puente MD Tschohl, Melissa Ann, MD Altered mental status, unspecified altered mental status type; Bleeding from left ear Discharge Disposition: Home or Self Care 07/18/2024 Travel 07/18/2024 MyC Medical Advice [facility] [place] [address] [place] [phone] Kingsley Garcia MD 07/15/2024 10:57 PM CDT - 07/16/2024 2:12 AM CDT Emergency [facility] Emergency Department [address] [place] [phone] Ronnie Multani MD Syncope, unspecified syncope type Discharge Disposition: Home or Self Care 07/15/2024 Travel 07/08/2024 8:51 PM CDT - 07/09/2024 5:22 AM CDT Emergency [facility] Emergency Department [address] [place] [phone] Pennie Bernal MD Acute midline thoracic back pain; Lumbar back pain; Numbness of left hand Discharge Disposition: Home or Self Care 07/08/2024 Travel 07/07/2024 7:40 AM CDT Ancillary Procedure [facility] Imaging [address] [place] [phone] Kamryn Moreau DO 07/07/2024 7:36 AM CDT - 07/08/2024 1:54 AM CDT Emergency [facility] Emergency Department [address] [place] [phone] Kamryn Moreau DO Cousins, Collin, MD Crosby, Jill C, MD Fall, initial encounter; Numbness; Leg weakness, bilateral Discharge Disposition: Home or Self Care 07/07/2024 Travel 07/05/2024 1:05 PM CDT - 07/05/2024 7:25 PM CDT Emergency [facility] Emergency Dept [address] [place] [phone] Livia Gutierrez MD Acute pain of left shoulder; Rib pain on left side; Syncope and collapse; Hypocalcemia Discharge Disposition: Home or Self Care 07/05/2024 Travel 07/05/2024 Telephone [facility] [address] [place] [address] Segundo Mcclelland MD 07/03/2024 6:00 AM CDT - 07/03/2024 7:30 AM CDT Emergency [facility] Emergency Dept [address] [place] [phone] Bri Hope MD Fall, initial encounter; Hip pain, left; Acute midline low back pain, unspecified whether sciatica present Discharge Disposition: Home or Self Care 07/03/2024 Travel 06/30/2024 Telephone [facility] Surgery [facility] [address] [place] [address] Declan Leavitt MD 06/30/2024 MyC Medical Advice [facility] Surgery [facility] [address] [place] [phone] Ashly Donnelly RN 06/29/2024 MyC Medical Advice [facility] [place] [address] [place] [phone] Ashly Donnelly RN 06/29/2024 Telephone [facility] Surgery [facility] [address] [place] [address] Declan Leavitt MD Call Back 06/29/2024 Telephone [facility] [address] [place] [address] Segundo Mcclelland MD 06/29/2024 Telephone [facility] [address] [place] [phone] Declan Leavitt MD Call Back 06/28/2024 12:21 PM CDT - 06/28/2024 6:13 PM CDT Emergency [facility] Emergency Dept [address] [place] [phone] Luisito Chopra MD Syncope, unspecified syncope type Discharge Disposition: Home or Self Care 06/28/2024 10:30 AM CDT Office Visit [place] [address] [place] [phone] Declan Leavitt MD Intractable nausea and vomiting 06/28/2024 MyC Medical Advice [facility] [address] [place] [address] Segundo Mcclelland MD 06/28/2024 Telephone [facility] Interventional Radiology [address] [facility] [place] [phone] Lissette Adair APRN CNP 06/28/2024 Travel 06/27/2024 11:26 AM CDT - 06/27/2024 6:28 PM CDT Emergency [facility] Emergency Dept [address] [place] [phone] Segundo Quick MD Gosen, Christine Leigh, MD Syncope and collapse Discharge Disposition: Home or Self Care 06/27/2024 Travel 06/26/2024 Telephone [facility] [address] [place] [phone] Segundo Mcclelland MD Physician Communication 06/25/2024 3:45 PM CDT - 06/25/2024 7:49 PM CDT Emergency [facility] Emergency Dept [address] [place] [phone] Santhosh Sánchez MD Syncope, unspecified syncope type; Facial laceration, initial encounter; Dehydration Discharge Disposition: Home or Self Care 06/25/2024 Travel 06/23/2024 11:50 PM CDT - 06/24/2024 7:36 AM CDT Emergency [facility] Emergency Dept [address] [place] [phone] Mariela Herbert MD Pain of right upper extremity; Syncope, unspecified syncope type Discharge Disposition: Home or Self Care 06/23/2024 Travel 06/23/2024 MyC Medical Advice [facility] [address] [place] [address] Segundo Mcclelland MD 06/22/2024 Telephone [facility] Surgery [facility] [address] [place] [phone] Declan Leavitt MD 06/22/2024 Telephone [facility] [address] [place] [phone] Segundo Mcclelland MD Patient/info Update from Last 3 Months Immunizations Name Administration Dates Next Due DTaP, Unspecified 02/05/2014 Flu, Unspecified 08/29/2012,08/29/2010 [id number] Novel Flu 09/26/2012 HepB 08/13/2000,07/16/2000 HepB, Unspecified [...] Never Smokeless Tobacco: Never Tobacco Cessation:Counseling Given: Yes Alcohol Use Standard Drinks/Week Comments Not Currently 0 (1 standard drink = 0.6 oz pur e alcohol) none for 1 year PHQ-2 Answer Date Recorded PHQ-2 Score 2 [...] Answer Date Recorded Do you have housing? (Gene segura is defined as stable permanent housing and does not include staying ouside in a car, in a tent, in an abandoned building, in an overnight half-way, or couch-surfing.) Yes 08/26/2023 Are you worried about losing [...] getting things that you need? Yes 08/26/2023 Comments No Sex and Gender Information Value Date Recorded Sex Assigned at Female 05/26/2021 10:37 AM CDT Legal Sex Female 3:29 AM MANAGER APPLIED Gender Identity Female 05/26/2021 10:37 AM CDT Sexual Orientation Straight 05/26/2021 10 :37 AM CDT Occupation Industry Job Start Date Job End Date unemployed Not on file Not on file Not on file Not on file Not on file Not on file Not on file Last Filed Vital Signs Vital Sign Reading Time Taken Comments Blood Pressure 132/69 09/21/2024 5:47 PM CDT Pulse 110 09/21/2024 5:47 PM CDT Temperature 36.9 ??C (98.4 ??F) 09/21/2024 5:47 PM CD T Respiratory Rate 20 09/21/2024 5:47 PM CDT Oxygen Saturation 100% 09/21/2024 5:47 PM CDT Inhaled Oxygen Concentration - - Weight 116.9 kg (257 lb 11.5 oz) 09/12/2024 8:16 PM CDT Height 167.6 cm (5' 6) 09/12/2024 8:16 PM CDT Body Mass Index 41.6 09/12/2024 8:16 PM CDT Plan of Treatment Upcoming Encounters Date Type Department Care Team (Late st Contact Info) Description 02/20/2025 10:20 AM CDT Appointment [facility] [address] [place] [phone] Allyssa Justice MD [facility] [address] [place] [place] [address] 02/27/2025 10:40 AM CDT Virtual Visit [facility] [address], [place] [address] [facility] [address] [place] [phone] Allyssa Justice MD [facility] [address] [place] [phone] Health Maintenance Due Date Last Done Comments CONTROLLED SUBSTANCE AGREEMENT FOR CHRONIC PAIN MANAGEMENT 1985 HEPATITIS A IMMUNIZATION (2 of 2 - Risk 2-dose series) 09/15/2005 03/16/2005 Pneumococcal Vaccine: Pediatrics (0 to 5 Years) and At-Risk Patients (6 to 64 Years) (2 of 2 - PCV) 12/08/2013 12/08/2012, 10/13/2008, 09/23/2006 LIPID 01/01/2024 01/01/2023 YEARLY PREVENTIVE VISIT 01/01/2024 01/01/20 23, 12/10/2008, 04/23/2004 DTAP/TDAP/TD IMMUNIZATION (4 - Tdap) 02/06/2024 02/05/2014, 03/16/2005, 03/16/2005, Additional history exists COVID-19 Vaccine (3 - 2023- season) 2024 10/12/2021, 02/03/2021 INFLUENZA VACCINE (#1) 2024 8, 10/17/2013, 12/08/2012, Additional history exists LEONARDA ASSESSMENT 08/30/2024 08/30/2023, 07/30, 04/29/2018, Additional history exists PHQ-9 02/20/2025 02/21/2024, 05/01, 04/05/2023, Additional history exists ANNUAL REVIEW OF HM ORDERS 05/01/2025 05/01/2024, BMP 09/21/2025 09/21/2024, 0 03/2024, 07/18/2024, Additional history exists GLUCOSE 09/21/2027 09/21/2024, 09/0 03/2024, 07/18/2024, Additional history exists ADVANCE CARE PLANNING 01/11/2028 01/11/2023 RSV VACCINE (1 - 1-dose 75+ series) 2060 HEPATITIS B IMMUNIZATION Completed 005, 08/13/2000, 07/16/2000 MENINGITIS IMMUNIZATION Aged Out 03/16/2005, 03/16 No longer eligible based on patient's age to complete this topic HIV SCREENING Completed 11/24/2012, 03/30, 02/20/2006 HEPATITIS C SCREENING Completed 02/13/2016 , 10/08/2008, [...] this topic Medical Devices Implanted Type Area Landscape Foreman Device Identifier Shelf Expiration Date Model / Serial / Lot Picc-12/24/2020 Implanted:Qty: 1 on 12/24/2020 by Malia Garrett DO Catheter Right: Arm BARD / / [id number] Explanted Type Area Landscape Foreman Device Identifier Shelf Expiration Date Model / Serial / Lot Smart Port-02/04/2024 Implanted:Qty : 1 on 02/04/2024 by Josh Prasad MD Explanted:Qty : 1 on 03/20/2024 by Seth Santillan MD Catheter Right: Chest Wall [employer] [id number] 11/28/2026 / / [id number] Port-8 Implanted:Qty : 1 on 07/29/2023 by Donavon Quinones MD Explanted:Qty : 1 on 11/12/2023 by Josh Prasad MD Port Left: Chest / / [id number] Description:8 FR power port slim Port- Implanted:Qty : 1 on 03/20/2024 by Seth Santillan MD Explanted:Qty : 1 on 04/07/2024 by Malia Garrett, DO Port [employer] [id number] / / [id number] Description:8Fr SmartPort Procedures Procedure Name Priority Date/Time Associated Diagnosis Comments BASIC METABOLIC PANEL STAT 09/21/2024 7:01 PM CDT CBC WITH PLATELETS & DIFFERENTIAL STAT 08/03/2024 3:05 AM CDT RBC AND PLATELET MORPHOLOGY STAT 08/03/2024 3:05 AM CDT CBC WITH PLATELETS AND DIFFERENTIAL STAT 08/03/2024 3:05 AM CDT LACTIC ACID WHOLE BLOOD STAT 08/03/2024 3:05 AM CDT CRP INFLAMMATION STAT 08/03/2024 1:48 AM CDT BASIC METABOLIC PANEL STAT 08/03/2024 1:48 AM CDT MR BRAIN W/O & W CONTRAST STAT 07/19/2024 2:43 AM CDT CENTRAL LINE Routine 07/19/2024 12:49 AM CDT CTA HEAD NECK W CONTRAST STAT 07/19/2024 12:[address] HEAD W/O CONTRAST STAT 07/19/2024 12:10 AM CDT HCG QUALITATIVE STAT 07/19/2024 12:01 AM CDT EXTRA PURPLE TOP TUBE STAT 07/18/2024 11:59 PM CDT EXTRA GREEN TOP (LITHIUM HEPARIN) TUBE STAT 07/18/2024 11:59 PM CDT EXTRA TUBE STAT 07/18/2024 11:59 PM CDT PARTIAL THROMBOPLASTIN TIME STAT 07/18/2024 11:59 PM CDT INR STAT 07/18/2024 11:59 PM CDT CBC WITH PLATELETS & DIFFERENTIAL STAT 07/18/2024 11:21 PM CDT CBC WITH PLATELETS AND DIFFERENTIAL STAT 07/18/2024 11:21 PM CDT TROPONIN T, HIGH SENSITIVITY STAT 07/18/2024 11:21 PM CDT BASIC METABOLIC PANEL STAT 07/18/2024 11:21 PM CDT GLUCOSE BY METER STAT 07/18/2024 10:4 5 PM CDT CBC WITH PLATELETS & DIFFERENTIAL STAT 07/16/2024 12:29 AM CDT CBC WITH PLATELETS AND DIFFERENTIAL STAT 07/16/2024 12:29 AM CDT TROPONIN T, HIGH SENSITIVITY STAT 07/16/2024 12:29 AM CDT COMPREHENSIVE METABOLIC PANEL STAT 07/16/2024 12:29 AM CDT XR CERVICAL SPINE 2/3 VIEWS STAT 07/15/2024 11:52 PM CDT EKG 12-LEAD, TRACING ONLY STAT 07/15/2024 10:56 PM CDT MR THORACIC SPINE W/O CONTRAST STAT 07/09/2024 4:33 AM CDT MR CERVICAL SPINE W/O CONTRAST STAT 07/09/2024 4:[address] THORACIC SPINE W/O CONTRAST STAT 07/09/2024 2:[address] CERVICAL SPINE W/O CONTRAST STAT 07/09/2024 2:22 AM CDT HEPATIC FUNCTION PANEL Add-On 1:22 AM CDT EXTRA PURPLE TOP TUBE STAT 07/09/2024 1:22 AM CDT EXTRA GREEN TOP (LITHIUM HEPARIN) TUBE STAT 07/09/2024 1:22 AM CDT EXTRA TUBE STAT 07/09/2024 1:22 AM CDT MR LUMBAR SPINE W/O CONTRAST STAT 07/07/2024 10:46 PM CDT US ABDOMEN COMPLETE STAT 07/07/2024 9 [address] LUMBAR SPINE W/O CONTRAST STAT 07/07/2024 4:[address] HEAD W/O CONTRAST STAT 07/07/2024 4:24 PM CDT EKG 12-LEAD, TRACING ONLY STAT 07/07/2024 9:20 AM CDT CBC WITH PLATELETS & DIFFERENTIAL STAT 07/07/2024 9:17 AM CDT HCG QUANTITATIVE Add-On 07/07/2024 9:17 AM CDT CBC WITH PLATELETS AND DIFFERENTIAL STAT 07/07/2024 9:17 AM CDT CK TOTAL STAT 07/07/2024 9:17 AM CDT PHOSPHORUS STAT 07/07/2024 9:17 AM CDT MAGNESIUM STAT 07/07/2024 9:17 AM CDT LACTIC ACID WHOLE BLOOD WITH 1X REPEAT IN 2 HR WHEN >2 STAT 07/07/2024 9:17 AM CDT COMPREHENSIVE METABOLIC PANEL STAT 07/07/2024 9:17 AM CDT XR KNEE PORT RIGHT G/E 4 VIEWS STAT 07/07/2024 8:41 AM CDT POC US RESUSCITATION STAT 07/07/2024 7:39 AM CDT XR SHOULDER LEFT G/E 3 VIEWS STAT 07/05/2024 6:39 PM CDT CBC WITH PLATELETS & DIFFERENTIAL STAT 07/05/2024 5:46 PM CDT CBC WITH PLATELETS AND DIFFERENTIAL STAT 07/05/2024 5:46 PM CDT BASIC METABOLIC PANEL STAT 07/05/2024 5:46 PM CDT EKG 12-LEAD, TRACING ONLY STAT 07/05/2024 5:20 PM CDT EKG 12-LEAD, TRACING ONLY STAT 07/03/2024 6:16 AM CDT CBC WITH PLATELETS & DIFFERENTIAL STAT 06/28/2024 2:27 PM CDT EXTRA BLUE TOP TUBE STAT 06/28/2024 2 :27 PM CDT CBC WITH PLATELETS AND DIFFERENTIAL STAT 06/28/2024 2:27 PM CDT EXTRA TUBE STAT 06/28/2024 2:27 PM CDT MAGNESIUM STAT 06/28/2024 2:27 PM CDT TROPONIN T, HIGH SENSITIVITY STAT 06/28/2024 2:27 PM CDT LIPASE STAT 06/28/2024 2:27 PM CDT COMPREHENSIVE METABOLIC PANEL STAT 06/28/2024 2:27 PM CDT EKG 12-LEAD, TRACING ONLY STAT 06/28/2024 12:[address] CHEST PULMONARY EMBOLISM W CONTRAST STAT 06/27/2024 5:[address] CERVICAL SPINE W/O CONTRAST STAT 06/27/2024 5:[address] HEAD W/O CONTRAST STAT 06/27/2024 5:[address] FACIAL BONES WITHOUT CONTRAST STAT 06/27/2024 5:08 PM CDT ABO/RH TYPE AND SCREEN STAT 3:52 PM CDT CBC WITH PLATELETS & DIFFERENTIAL STAT 06/27/2024 3:52 PM CDT TYPE AND SCREEN, ADULT STAT 3:52 PM CDT CBC WITH PLATELETS AND DIFFERENTIAL STAT 06/27/2024 3:52 PM CDT D DIMER QUANTITATIVE STAT 06/27/2024 3:52 PM CDT HEPATIC FUNCTION PANEL STAT 3:52 PM CDT BASIC METABOLIC PANEL STAT 06/27/2024 3:52 PM CDT TROPONIN T, HIGH SENSITIVITY STAT 06/27/2024 3:52 PM CDT HCG QUALITATIVE STAT 06/27/2024 3:52 PM CDT EKG 12-LEAD, TRACING ONLY STAT 06/27/2024 11:58 AM CDT CBC WITH PLATELETS & DIFFERENTIAL STAT 06/25/2024 5:00 PM CDT MANUAL DIFFERENTIAL STAT 06/25/2024 5 :00 PM CDT RBC AND PLATELET MORPHOLOGY STAT 06/25/2024 5:00 PM CDT CBC WITH PLATELETS AND DIFFERENTIAL STAT 06/25/2024 5:00 PM CDT COMPREHENSIVE METABOLIC PANEL STAT 06/25/2024 5:00 PM CDT EKG 12-LEAD, TRACING ONLY STAT 06/25/2024 3:58 PM CDT XR FOREARM RIGHT 2 VIEWS STAT 06/24/2024 12:[address] CERVICAL SPINE W/O CONTRAST STAT 06/24/2024 12:40 AM CDT EKG 12-LEAD, TRACING ONLY STAT 06/24/2024 12:05 AM CDT URINE DRUG SCREEN STAT 05/05/2023 1:4 4 PM CDT LIPID REFLEX TO DIRECT LDL PANEL Routine 01/01/2023 11:43 AM MANAGER APPLIED Routine general medical examination at a health care facility MA DIAGNOSTIC BILATERAL W/ AARON Routine 09/02/2018 8:20 AM CDT Lump or mass in breast ACUTE HEPATITIS PANEL Routine 02/13/2016 10:56 AM CDT HIV 1 AND 2 ANTIBODY (QUEST) STAT 11/24/2012 5:50 PM MANAGER APPLIED HCL PAP THIN LAYER DIAGNOSTIC Routine 05/13/2009 12:00 AM CDT Pap Smear Vagina w LGSIL from Last 3 Months or Most Recently Relevant to Health Maintenance Results * (ABNORMAL) Basic metabolic panel (BMP) (09/21/2024 7:01 PM CDT) Only the most recent of5 resultswithin the time period is included. Sodium 138 135 - 145 mmol/L 09/21/2024 7:27 PM CDT LABORATORY Potassium 4.7 3.4 - 5.3 mmol/L 09/21/2024 7:27 PM CDT LABORATORY Chloride 103 98 - 107 mmol/L 09/21/2024 7:27 PM CDT LABORATORY Carbon Dioxide (CO2) 21(L) 22 - 29 mmol/L 09/21/2024 7:27 PM CDT LABORATORY Anion Gap 14 7 - 15 mmol/L 09/21/2024 7:27 PM CDT LABORATORY Urea Nitrogen 20.4(H) 6.0 - 20.0 mg/dL 09/21/2024 7:27 PM CDT LABORATORY Creatinine 0.74 0.51 - 0.95 mg/dL 09/21/2024 7:27 PM CDT LABORATORY GFR Estimate >90 >60 mL/min/1.7 3m2 09/21/2024 7:27 PM CDT LABORATORY Comment:eGFR calculated 2020 CKD-EPI equation. Calcium 8.6(L) 8.8 - 10.4 mg/dL 09/21/2024 7:27 PM CDT LABORATORY Comment:Reference intervals for this test were updated on 06/13/2024 to reflect our healthy population more accurately. There may be differences in the flagging of prior results with similar values performed with this method. Those prior results can be interpreted in the context of the updated reference intervals. Glucose 99 70 - 99 mg/dL 09/21/2024 7:27 PM CDT LABORATORY Blood STRUCTURE OF RIGHT UPPER LIMB / Unknown Venipuncture / Unknown 09/21/2024 7:01 PM CDT 09/21/2024 7:08 PM CDT us Lesley Nair MD LAB - BLOOD ORDERABLES F inal Result LABORATORY [facility] [address] [facility] (1st floor, no room number) [place] [address], [facility] * (ABNORMAL) RBC and Platelet Morphology (08/03/2024 3:05 AM CDT) Only the most recent of2 resultswithin the time period is included. [facility] RBC Morphology Confirmed RBC Indices 08/03/2024 3:37 AM CDT LABORATORY Platelet Assessment Automated Count Confirmed. Platelet morphology is normal. Automated Count Confirmed. Platelet morphology is normal. [place] 08/03/2024 3:37 AM CDT LABORATORY Elliptocytes Slight(A) None Seen [place] 08/03/2024 3:37 AM CDT LABORATORY Blood STRUCTURE OF RIGHT HAND / Unknown Venipuncture / Unknown 08/03/2024 3:05 AM CDT 08/03/2024 3:07 AM CDT Santhosh Sánchez MD LAB - BLOOD ORDERABLES Final Result LABORATORY [facility] [address] 1[address] floor, [address] [place] [address], [facility] [phone] * (ABNORMAL) CBC with platelets and differential (08/03/2024 3:05 AM CDT) Only the most recent of8 resultswithin the time period is included. [facility] WBC Count 6.6 4.0 - 11.0 10e3/uL 08/03/2024 3:37 AM CDT LABORATORY RBC Count 3.97 3.80 - 5.20 10e6/uL 08/03/2024 3:37 AM CDT LABORATORY Hemoglobin 8.8(L) 11.7 - 15.7 g/dL 08/03/2024 3:37 AM CDT LABORATORY Hematocrit 29.6(L) 35.0 - 47.0 % 08/03/2024 3:37 AM CDT LABORATORY MCV 75(L) 78 - 100 fL 08/03/2024 3:37 AM CDT LABORATORY MCH 22.2(L) 26.5 - 33.0 pg 08/03/2024 3:37 AM CDT LABORATORY MCHC 29.7(L) 31.5 - 36.5 g/dL 08/03/2024 3:37 AM CDT LABORATORY RDW 19.8(H) 10.0 - 15.0 % 08/03/2024 3:37 AM CDT LABORATORY Platelet Count 314 150 - 450 10e3/uL 08/03/2024 3:37 AM CDT LABORATORY % Neutrophils 52 % 08/03/2024 3:37 AM CDT LABORATORY % Lymphocytes 33 % 08/03/2024 3:37 AM CDT LABORATORY % Monocytes 13 % 08/03/2024 3:37 AM CDT LABORATORY % Eosinophils 2 % 08/03/2024 3:37 AM CDT LABORATORY % Basophils 0 % 08/03/2024 3:37 AM CDT LABORATORY % Immature Granulocytes 0 % 08/03/2024 3:37 AM CDT LABORATORY NRBCs per 100 WBC 0 <1 /100 024 3:37 AM CDT LABORATORY Absolute Neutrophils 3.5 1.6 - 8.3 10e3/uL 08/03/2024 3:37 AM CDT LABORATORY Absolute Lymphocytes 2.2 0.8 - 5.3 10e3/uL 08/03/2024 3:37 AM CDT LABORATORY Absolute Monocytes 0.8 0.0 - 1.3 10e3/uL 08/03/2024 3:37 AM CDT LABORATORY Absolute Eosinophils 0.1 0.0 - 0.7 10e3/uL 08/03/2024 3:37 AM CDT LABORATORY Absolute Basophils 0.0 0.0 - 0.2 10e3/uL 08/03/2024 3:37 AM CDT LABORATORY Absolute Immature Granulocytes 0.0 <=0.4 10e3/uL 08/03/2024 3:37 AM CDT LABORATORY Absolute NRBCs 0.0 10e3/uL 08/03/2024 3:37 AM CDT LABORATORY Blood STRUCTURE OF RIGHT HAND / Unknown Venipuncture / Unknown 08/03/2024 3:05 AM CDT 08/03/2024 3:07 AM CDT Santhosh Sánchez MD LAB - BLOOD ORDERABLES Final Result Performing Organization Address City/[facility]/ZIP Co de Phone Number LABORATORY [facility] [address] 1st floor, [place] [address] [address], [facility] [phone] * Lactic acid whole blood (08/03/2024 3:05 AM CDT) Lactic Acid 0.9 0.7 - 2.0 mmol/L 08/03/2024 3:08 AM CDT LABORATORY Blood STRUCTURE OF RIGHT HAND / Unknown Venipuncture / Unknown 08/03/2024 3:05 AM CDT 08/03/2024 3:07 AM CDT Santhosh Sánchez MD LAB - BLOOD ORDERABLES Final Result Performing Organization Address City/[facility]/ZIP Co de Phone Number LABORATORY [facility] [address] 1[address] floor, [address], [place] [address], [facility] [phone] * (ABNORMAL) CRP inflammation (08/03/2024 1:48 AM CDT) CRP Inflammation 38.10(H) <5.00 mg/L 08/03/2024 2:11 AM CDT LABORATORY Blood BLOOD SPECIMEN / Unknown Venipuncture / Unknown 08/03/2024 1:48 AM CDT 08/03/2024 1:52 AM CDT Santhosh Sánchez MD LAB - BLOOD ORDERABLES Final Result LAB[facility]ATORY [facility] [address] floor, [address] [place] [address], [facility] [phone] * MR Brain w/o & w Contrast (07/19/2024 2:43 AM CDT) Anatomical Region Laterality Modality Head, SUBRAD MR NEURO, UMP MR NEURO, RAD MR Magnetic Resonance 07/19/2024 2:43 AM CDT Impressions 07/19/2024 4:39 AM CDT IMPRESSION: 1. ??No acute/subacute infarct, mass, acute hemorrhage or abnormal extra-axial fluid collection. 2. ??Mild scattered nonspecific foci of T2/FLAIR hyperintense signal within the cerebral white matter. The differential for these findings is broad, however, some of these lesions appear perpendicular to the lateral ventricles which can be seen in the setting of a demyelinating process such as multiple sclerosis. Other differential diagnostic considerations include chronic migraine effect, early chronic microvascular ischemic change or even Lyme disease, among other etiologies. If there is a concern for a demyelinating process, consider neurology consultation and CSF sampling for further assessment. 3. ??Subtle diffuse dural thickening and enhancement. This finding is nonspecific and may be idiopathic however other etiologies include infection/inflammation, dural-based metastases, intracranial hypotension, or recent neurosurgical intervention (including lumbar puncture). Narrative 07/19/2024 4:39 AM CDT EXAM: MR BRAIN W/O and W CONTRAST LOCATION: [facility] DATE: 07/19/2024 INDICATION: Left-sided weakness and aphasia. COMPARISON: CTA head and neck dated 07/19/2024. CONTRAST: 10 mL Gadavist IV. TECHNIQUE: Routine multiplanar multisequence head MRI without and with intravenous contrast. FINDINGS: INTRACRANIAL CONTENTS: No acute or subacute infarct. No mass, acute hemorrhage, or extra-axial fluid collections. Mild scattered nonspecific foci of T2/FLAIR hyperintense signal in the cerebral white matter; some of these lesions appear perpendicular to the lateral ventricles which can be seen in the setting of a demyelinating process such as multiple sclerosis. Normal ventricles and sulci. Normal position of the cerebellar tonsils. There is subtle diffuse dural thickening and enhancement. SELLA: No abnormality accounting for technique. OSSEOUS STRUCTURES/SOFT TISSUES: Normal marrow signal. The major intracranial vascular flow voids are maintained. ORBITS: No abnormality accounting for technique. SINUSES/MASTOIDS: No paranasal sinus mucosal disease. No middle ear or mastoid effusion. Procedure Note Axel Monsivais MD - 07/19/2024 EXAM: MR BRAIN W/O and W CONTRAST LOCATION: [facility] DATE: 07/19/2024 INDICATION: Left-sided weakness and aphasia. COMPARISON: CTA head and neck dated 07/19/2024. CONTRAST: 10 mL Gadavist IV. TECHNIQUE: Routine multiplanar multisequence head MRI without and withintravenous contrast. FINDINGS: INTRACRANIAL CONTENTS: No acute or subacute infarct. No mass, acutehemorrhage, or extra-axial fluid collections. Mild scattered nonspecificfoci of T2/FLAIR hyperintense signal in the cerebral white matter; some ofthese lesions appear perpendicular to the lateral ventricles which can be seen in the setting of a demyelinatingprocess such as multiple sclerosis. Normal ventricles and sulci. Normalposition of the cerebellar tonsils. There is subtle diffuse duralthickening and enhancement. SELLA: No abnormality accounting for technique. OSSEOUS STRUCTURES/SOFT TISSUES: Normal marrow signal. The majorintracranial vascular flow voids are maintained. ORBITS: No abnormality accounting for technique. SINUSES/MASTOIDS: No paranasal sinus mucosal disease. No middle ear ormastoid effusion. IMPRESSION: 1. No acute/subacute infarct, mass, acute hemorrhage or abnormalextra-axial fluid collection. 2. Mild scattered nonspecific foci of T2/FLAIR hyperintense signal withinthe cerebral white matter. The differential for these findings is broad,however, some of these lesions appear perpendicular to the lateralventricles which can be seen in the setting of a demyelinating process such as multiple sclerosis. Otherdifferential diagnostic considerations include chronic migraine effect,early chronic microvascular ischemic change or even Lyme disease, amongother etiologies. If there is a concern for a demyelinating process, consider neurology consultation and CSFsampling for further assessment. 3. Subtle diffuse dural thickening and enhancement. This finding isnonspecific and may be idiopathic however other etiologies includeinfection/inflammation, dural- based metastases, intracranial hypotension,or recent neurosurgical intervention (including lumbar puncture). Dean Limon MD IMG MRI ORDERABLES Final Result * -Central Line (07/19/2024 12:49 AM CDT) Narrative Miguel Puente MD - 07/19/2024 12:49 AM CDT Miguel Puente MD ? 07/19/2024 ??1:[address] [facility] -Central Line Date/Time: 07/19/2024 12:49 AM Performed by: Miguel Puente MD Authorized by: Miguel Puente MD ?? Emergent condition/consent implied PRE-PROCEDURE DETAILS: ??Hand hygiene: Hand hygiene performed prior to insertion ?Sterile barrier technique: All elements of maximal sterile technique followed ?Skin preparation: ??2% chlorhexidine ??Skin preparation agent: Skin preparation agent completely dried prior to procedure ?? ANESTHESIA Local Anesthetic: ??Lidocaine 1% with epinephrine Anesthetic Total (mL): ??3 PROCEDURE DETAILS: ??Location: ??R femoral ??Site selection rationale: ??Need for IV contrast ??Patient position: ??Flat ??Procedural supplies: ??Triple lumen ??Catheter size: ??7 Fr ??Landmarks identified: yes ?Ultrasound guidance: yes ?Sterile ultrasound techniques: Sterile gel and sterile probe covers were used ?Number of attempts: ??1 ??Successful placement: yes ?? POST PROCEDURE DETAILS: ?Post-procedure: ??Dressing applied and line sutured ??Assessment: ??Blood return through all ports and free fluid flow PROCEDURE Patient Tolerance: ??Patient tolerated the procedure well with no immediate complications us Miguel Puente MD PROCEDURE/MINOR SURGICAL ORDERABLES Final Result * CTA Head Neck with Contrast (07/19/2024 12:15 AM CDT) Anatomical Region Laterality Modality Head, SUBRAD CT NEURO, SUBRA D CT NEURO, UMP CT NEURO, RAD CT Computed Tomography 07/19/2024 12:1 5 AM CDT Impressions 07/19/2024 12:36 AM CDT IMPRESSION: HEAD CT: 1. ??No acute intracranial process. HEAD CTA: 1. ??No large vessel occlusion or hemodynamically significant stenosis. NECK CTA: 1. ??No large vessel occlusion or hemodynamically significant stenosis. ?? Dr. Puente was contacted by me on 07/19/2024 12:15 AM CDT ?with the preliminary report. Narrative 07/19/2024 12:36 AM CDT EXAM: CT HEAD W/O CONTRAST, CTA HEAD NECK W CONTRAST LOCATION: [facility] DATE/TIME: 07/19/2024 12:10 AM CDT INDICATION: Code stroke; follow-up. Speech difficulty. Difficulty speaking. Aphasia. COMPARISON: None. CONTRAST: 67 mL Isovue 370 TECHNIQUE: Head and neck CT angiogram with IV contrast. Noncontrast head CT followed by axial helical CT images of the head and neck vessels obtained during the arterial phase of intravenous contrast administration. Axial 2D reconstructed images and multiplanar 3D MIP reconstructed images of the head and neck vessels were performed by the technologist. Dose reduction techniques were used. All stenosis measurements made according to NASCET criteria unless otherwise specified. FINDINGS: NONCONTRAST HEAD CT: INTRACRANIAL CONTENTS: No intracranial hemorrhage, extraaxial collection, or mass effect. ??No CT evidence of acute infarct. Normal parenchymal attenuation. Normal ventricles and sulci. VISUALIZED ORBITS/SINUSES/MASTOIDS: No intraorbital abnormality. No significant paranasal sinus mucosal disease. No middle ear or mastoid effusion. BONES/SOFT TISSUES: No acute abnormality. HEAD CTA: ANTERIOR CIRCULATION: No stenosis/occlusion, aneurysm, or high flow vascular malformation. Standard barrow of Connolly anatomy. POSTERIOR CIRCULATION: No stenosis/occlusion, aneurysm, or high flow vascular malformation. Balanced vertebral arteries supply a normal basilar artery. DURAL VENOUS SINUSES: Expected enhancement of the major dural venous sinuses. NECK CTA: RIGHT CAROTID: No measurable stenosis or dissection. LEFT CAROTID: No measurable stenosis or dissection. VERTEBRAL ARTERIES: No focal stenosis or dissection. Balanced vertebral arteries. AORTIC ARCH: Bovine origin left common carotid artery. No significant stenosis at the origin of the great vessels. NONVASCULAR STRUCTURES: Unremarkable. Procedure Note Dangelo Presley MD - 07/19/2024 EXAM: CT HEAD W/O CONTRAST, CTA HEAD NECK W CONTRAST LOCATION: [facility] DATE/TIME: 07/19/2024 12:10 AM CDT INDICATION: Code stroke; follow-up. Speech difficulty. Difficultyspeaking. Aphasia. COMPARISON: None. CONTRAST: 67 mL Isovue 370 TECHNIQUE: Head and neck CT angiogram with IV contrast. Noncontrast headCT followed by axial helical CT images of the head and neck vesselsobtained during the arterial phase of intravenous contrast administration.Axial 2D reconstructed images and multiplanar 3D MIP reconstructed images of the head and neck vessels wereperformed by the technologist. Dose reduction techniques were used. Allstenosis measurements made according to NASCET criteria unless otherwisespecified. FINDINGS: NONCONTRAST HEAD CT: INTRACRANIAL CONTENTS: No intracranial hemorrhage, extraaxial collection,or mass effect. No CT evidence of acute infarct. Normal parenchymalattenuation. Normal ventricles and sulci. VISUALIZED ORBITS/SINUSES/MASTOIDS: No intraorbital abnormality. Nosignificant paranasal sinus mucosal disease. No middle ear or mastoideffusion. BONES/SOFT TISSUES: No acute abnormality. HEAD CTA: ANTERIOR CIRCULATION: No stenosis/occlusion, aneurysm, or high flowvascular malformation. Standard barrow of Connolly anatomy. POSTERIOR CIRCULATION: No stenosis/occlusion, aneurysm, or high flowvascular malformation. Balanced vertebral arteries supply a normal basilarartery. DURAL VENOUS SINUSES: Expected enhancement of the major dural venoussinuses. NECK CTA: RIGHT CAROTID: No measurable stenosis or dissection. LEFT CAROTID: No measurable stenosis or dissection. VERTEBRAL ARTERIES: No focal stenosis or dissection. Balanced vertebralarteries. AORTIC ARCH: Bovine origin left common carotid artery. No significantstenosis at the origin of the great vessels. NONVASCULAR STRUCTURES: Unremarkable. IMPRESSION: HEAD CT: 1. No acute intracranial process. HEAD CTA: 1. No large vessel occlusion or hemodynamically significant stenosis. NECK CTA: 1. No large vessel occlusion or hemodynamically significant stenosis. Dr. Puente was contacted by me on 07/19/2024 12:15 AM CDT with thepreliminary report. Miguel Puente MD [facility] [place] ORDERABLES Final Result * CT Head w/o Contrast (07/19/2024 12:10 AM CDT) Only the most recent of3 resultswithin the time period is included. Anatomical Region Laterality Modality Head, SUBRAD CT NEURO, SUBRA D CT NEURO, UMP CT NEURO, RAD CT Computed Tomography 07/19/2024 12:1 0 AM CDT Impressions 07/19/2024 12:36 AM CDT IMPRESSION: HEAD CT: 1. ??No acute intracranial process. HEAD CTA: 1. ??No large vessel occlusion or hemodynamically significant stenosis. NECK CTA: 1. ??No large vessel occlusion or hemodynamically significant stenosis. ?? Dr. Puente was contacted by me on 07/19/2024 12:15 AM CDT ?with the preliminary report. Narrative 07/19/2024 12:36 AM CDT EXAM: CT HEAD W/O CONTRAST, CTA HEAD NECK W CONTRAST LOCATION: [facility] DATE/TIME: 07/19/2024 12:10 AM CDT INDICATION: Code stroke; follow-up. Speech difficulty. Difficulty speaking. Aphasia. COMPARISON: None. CONTRAST: 67 mL Isovue 370 TECHNIQUE: Head and neck CT angiogram with IV contrast. Noncontrast head CT followed by axial helical CT images of the head and neck vessels obtained during the arterial phase of intravenous contrast administration. Axial 2D reconstructed images and multiplanar 3D MIP reconstructed images of the head and neck vessels were performed by the technologist. Dose reduction techniques were used. All stenosis measurements made according to NASCET criteria unless otherwise specified. FINDINGS: NONCONTRAST HEAD CT: INTRACRANIAL CONTENTS: No intracranial hemorrhage, extraaxial collection, or mass effect. ??No CT evidence of acute infarct. Normal parenchymal attenuation. Normal ventricles and sulci. VISUALIZED ORBITS/SINUSES/MASTOIDS: No intraorbital abnormality. No significant paranasal sinus mucosal disease. No middle ear or mastoid effusion. BONES/SOFT TISSUES: No acute abnormality. HEAD CTA: ANTERIOR CIRCULATION: No stenosis/occlusion, aneurysm, or high flow vascular malformation. Standard barrow of Connolly anatomy. POSTERIOR CIRCULATION: No stenosis/occlusion, aneurysm, or high flow vascular malformation. Balanced vertebral arteries supply a normal basilar artery. DURAL VENOUS SINUSES: Expected enhancement of the major dural venous sinuses. NECK CTA: RIGHT CAROTID: No measurable stenosis or dissection. LEFT CAROTID: No measurable stenosis or dissection. VERTEBRAL ARTERIES: No focal stenosis or dissection. Balanced vertebral arteries. AORTIC ARCH: Bovine origin left common carotid artery. No significant stenosis at the origin of the great vessels. NONVASCULAR STRUCTURES: Unremarkable. Procedure Note Dangelo Presley MD - 07/19/2024 EXAM: CT HEAD W/O CONTRAST, CTA HEAD NECK W CONTRAST LOCATION: [facility] DATE/TIME: 07/19/2024 12:10 AM CDT INDICATION: Code stroke; follow-up. Speech difficulty. Difficultyspeaking. Aphasia. COMPARISON: None. CONTRAST: 67 mL Isovue 370 TECHNIQUE: Head and neck CT angiogram with IV contrast. Noncontrast headCT followed by axial helical CT images of the head and neck vesselsobtained during the arterial phase of intravenous contrast administration.Axial 2D reconstructed images and multiplanar 3D MIP reconstructed images of the head and neck vessels wereperformed by the technologist. Dose reduction techniques were used. Allstenosis measurements made according to NASCET criteria unless otherwisespecified. FINDINGS: NONCONTRAST HEAD CT: INTRACRANIAL CONTENTS: No intracranial hemorrhage, extraaxial collection,or mass effect. No CT evidence of acute infarct. Normal parenchymalattenuation. Normal ventricles and sulci. VISUALIZED ORBITS/SINUSES/MASTOIDS: No intraorbital abnormality. Nosignificant paranasal sinus mucosal disease. No middle ear or mastoideffusion. BONES/SOFT TISSUES: No acute abnormality. HEAD CTA: ANTERIOR CIRCULATION: No stenosis/occlusion, aneurysm, or high flowvascular malformation. Standard barrow of Connolly anatomy. POSTERIOR CIRCULATION: No stenosis/occlusion, aneurysm, or high flowvascular malformation. Balanced vertebral arteries supply a normal basilarartery. DURAL VENOUS SINUSES: Expected enhancement of the major dural venoussinuses. NECK CTA: RIGHT CAROTID: No measurable stenosis or dissection. LEFT CAROTID: No measurable stenosis or dissection. VERTEBRAL ARTERIES: No focal stenosis or dissection. Balanced vertebralarteries. AORTIC ARCH: Bovine origin left common carotid artery. No significantstenosis at the origin of the great vessels. NONVASCULAR STRUCTURES: Unremarkable. IMPRESSION: HEAD CT: 1. No acute intracranial process. HEAD CTA: 1. No large vessel occlusion or hemodynamically significant stenosis. NECK CTA: 1. No large vessel occlusion or hemodynamically significant stenosis. Dr. Puente was contacted by me on 07/19/2024 12:15 AM CDT with thepreliminary report. Miguel Puente MD [facility] [place] ORDERABLES Final Result * hCG Qualitative (07/19/2024 12:01 AM CDT) Only the most recent of2 resultswithin the time period is included. hCG Serum Qualitative Negative Negative [place] 07/19/2024 12:20 AM CDT [facility] Comment:This test is for scr eening purposes. Results should be interpreted along with the clinical picture. Confirmation testing is available if warranted by ordering [id number], HCG Quantitative . Blood BLOOD SPECIMEN / Unknown Venipuncture / Unknown 07/19/2024 12:01 AM CDT 07/19/2024 12:07 AM CDT Miguel Puente MD LAB - BLOOD ORDERABLES F inal Result Performing Organization Address City/[facility]/ZIP Co de Phone Number [facility] [address] [place] [address], [address] * Extra Purple Top Tube (07/18/2024 11:59 PM CDT) Only the most recent of2 resultswithin the time period is included. Hold Specimen JIC 07/19/2024 1:16 AM CDT [facility] Blood BLOOD SPECIMEN / Unknown Venipuncture / Unknown 07/18/2024 11:59 PM CDT 07/19/2024 12:10 AM CDT Miguel Puente MD LAB - BLOOD ORDERABLES F inal Result Performing Organization Address [facility] Co de Phone Number UR [facility]ATORY [facility] [address] [place] [address], [address] * Extra Green Top ([place] Heparin) Tube (07/18/2024 11:59 PM CDT) Only the most recent of2 resultswithin the time period is included. Hold Specimen JIC 07/19/2024 1:16 AM CDT [facility] Blood BLOOD SPECIMEN / Unknown Venipuncture / Unknown 07/18/2024 11:59 PM CDT 07/19/2024 12:10 AM CDT Miguel Puente MD LAB - BLOOD ORDERABLES F inal Result [facility] [address] [place] [address], [address] * INR (07/18/2024 11:59 PM CDT) INR 1.07 0.85 - 1.15 07/19/2024 12:17 AM CDT [facility] Blood BLOOD SPECIMEN / Unknown Venipuncture / Unknown 07/18/2024 11:59 PM CDT 07/19/2024 12:07 AM CDT Miguel Puente MD LAB - BLOOD ORDERABLES F inal Result UR [facility] [address] [place] [address], Room [place] [id number] [place] [address] * Partial thromboplastin time (07/18/2024 11:59 PM CDT) aPTT 27 22 - 38 Seconds 07/19/2024 12:18 AM CDT [facility] Blood BLOOD SPECIMEN / Unknown Venipuncture / Unknown 07/18/2024 11:59 PM CDT 07/19/2024 12:07 AM CDT Miguel Puente MD LAB - BLOOD ORDERABLES F inal Result Performing Organization Address City/[facility]/ZIP Co de Phone Number [facility] [address] [place] [address], Room [place] [phone] [place] [address] * Troponin T, High Sensitivity (07/18/2024 11:21 PM CDT) Only the most recent of4 resultswithin the time period is included. Troponin T, High Sensitivity <6 <=14 ng/L 07/18/2024 11:56 PM CDT [facility] Comment: Either a High Sensitivity Troponin [...] BLOOD SPECIMEN / Unknown Venipuncture / Unknown 07/18/2024 11:21 PM CDT 07/18/2024 11:28 PM CDT Miguel Puente MD LAB - BLOOD ORDERABLES F inal Result Performing Organization Address City/[facility]/ZIP Co de Phone Number [facility], Room [address] * (ABNORMAL) Glucose by meter (07/18/2024 10:45 PM CDT) GLUCOSE BY METER POCT 112(H) 70 - 99 mg/dL 07/18/2024 10:52 PM CDT [facility] POC Blood, Capillary BLOOD SPECIMEN / Unknown 07/18/2024 10:45 PM CDT 07/18/2024 10:52 PM CDT Miguel Puente MD LAB - BEAKER POCT Final Result Performing Organization Address [facility] Co de Phone Number [facility] POC [facility] [address] [place] [address], [address] * (ABNORMAL) Comprehensive metabolic panel (07/16/2024 12:29 AM CDT) Only the most recent of4 resultswithin the time period is included. Sodium 137 135 - 145 mmol/L 07/16/2024 1:11 AM CDT [facility] Potassium 3.4 3.4 - 5.3 mmol/L 07/16/2024 1:11 AM CDT [facility] Carbon Dioxide (CO2) 23 22 - 29 mmol/L 07/16/2024 1:11 AM CDT [facility] Anion Gap 11 7 - 15 mmol/L 07/16/2024 1:11 AM CDT [facility] Urea Nitrogen 20.2(H) 6.0 - 20.0 mg/dL 07/16/2024 1:11 AM CDT [facility] Creatinine 0.68 0.51 - 0.95 mg/dL 07/16/2024 1:11 AM CDT [facility] GFR Estimate >90 >60 mL/min/1.7 3m2 07/16/2024 1:11 AM CDT [facility] Comment:eGFR calculated 2020 CKD-EPI equation. Calcium 8.7(L) 8.8 - 10.4 mg/dL 07/16/2024 1:11 AM CDT [facility] Comment:Reference intervals for this test were updated on 06/13/2024 to reflect our healthy population more accurately. There may be differences in the flagging of prior results with similar values performed with this method. Those prior results can be interpreted in the context of the updated reference intervals. Chloride 103 98 - 107 mmol/L 07/16/2024 1:11 AM CDT [facility] Glucose 103(H) 70 - 99 mg/dL 07/16/2024 1:11 AM CDT [facility] Alkaline Phosphatase 220(H) 40 - 150 U/L 07/16/2024 1:11 AM CDT [facility] AST 43 0 - 45 U/L 07/16/2024 1:11 AM CDT [facility] ALT 78(H) 0 - 50 U/L 07/16/2024 1:11 AM CDT [facility] Protein Total 8.1 6.4 - 8.3 g/dL 07/16/2024 1:11 AM CDT [facility] Albumin 4.2 3.5 - 5.2 g/dL 07/16/2024 1:11 AM CDT [facility] Bilirubin Total <0.2 <=1.2 mg/dL 07/16/2024 1:11 AM CDT [facility] Blood BLOOD SPECIMEN / Unknown Venipuncture / Unknown 07/16/2024 12:29 AM CDT 07/16/2024 12:45 AM CDT Ronnie Multani MD LAB - BLOOD ORDERABLES F inal Result [facility] [address] [facility], [address] [place] [id number], [facility] * XR Cervical Spine 2/3 Views (07/15/2024 11:52 PM CDT) Anatomical Region Laterality Modality Spine Computed Radiogr aphy 07/15/2024 11:5 2 PM CDT Impressions 07/15/2024 11:56 PM CDT IMPRESSION: No prevertebral soft tissue swelling. Normal vertebral heights and alignment. Normal disc spaces and facets for age. Normal extraspinal structures. Narrative 07/15/2024 11:56 PM CDT EXAM: XR CERVICAL SPINE 2/3 VIEWS LOCATION: [facility] DATE: 07/15/2024 INDICATION: Trauma. COMPARISON: None. Procedure Note Sg House MD - 07/15/2024 EXAM: XR CERVICAL SPINE 2/3 VIEWS LOCATION: [facility] DATE: 07/15/2024 INDICATION: Trauma. COMPARISON: None. IMPRESSION: No prevertebral soft tissue swelling. Normal vertebral heightsand alignment. Normal disc spaces and facets for age. Normal extraspinalstructures. Ronnie Multani MD IMG DIAGNOSTIC IMAGING O RDERABLES Final Result * EKG 12-lead, tracing only (07/15/2024 10:56 PM CDT) Only the most recent of8 resultswithin the time period is included. Systolic Blood Pressure mmHg RADIOLOGY RESULTS Diastolic Blood Pressure mmHg RADIOLOGY RESULTS Ventricular Rate 94 BPM RAD IOLOGY RESULTS Atrial Rate 94 BPM RADIOLOG Y RESULTS ME Interval 180 ms RADIOLOG Y RESULTS QRS Duration 80 ms RADIOLO GY RESULTS QT 358 ms RADIOLOGY RESULTS QTc 447 ms RADIOLOGY RESULTS P Sher[place] 31 degrees RADIOLOGY RESULTS R AXIS 19 degrees RADIOLOGY RESULTS T [place] 19 degrees RADIOLOGY RESULTS Interpretation ECG Sinus rhythm Cannot rule out Anterior infarct , age undetermined Abnormal ECG Unconfirmed report - interpretation of this ECG is computer generated - see medical record for final interpretation Confirmed by - EMERGENCY ROOM, PHYSICIAN ([id number]), technical editor MICHAEL GARZA ([id number]) on 07/16/2024 9:20:21 AM RADIOLOGY RESULTS 07/15/2024 10:5 6 PM CDT 07/16/2024 9:20 AM CDT Ronnie Multain MD ECG ORDERABLES Edited R esult - Final RADIOLOGY RESULTS * Thoracic spine MRI w/o contrast (07/09/2024 4:33 AM CDT) Anatomical Region Laterality Modality Spine, SUBRAD MR NEURO, UMP MR SPINE, RAD MR Magnetic Resonance 07/09/2024 4:33 AM CDT Impressions 07/09/2024 4:47 AM CDT IMPRESSION: 1. ??Unremarkable MRI thoracic spine. Narrative 07/09/2024 4:47 AM CDT EXAM: MR THORACIC SPINE W/O CONTRAST LOCATION: [facility] DATE: 07/09/2024 INDICATION: thoracic back pain, left sided numbness COMPARISON: Thoracic spine CT on the same date TECHNIQUE: Routine Thoracic Spine MRI without IV contrast. FINDINGS: Normal vertebral body heights, alignment and marrow signal. Normal disc heights. No herniation. Normal facets. No spinal canal or neural foraminal stenosis. No abnormal cord signal. No extraspinal abnormality. Procedure Note MayAston MD - 07/09/2024 EXAM: MR THORACIC SPINE W/O CONTRAST LOCATION: [facility] DATE: 07/09/2024 INDICATION: thoracic back pain, left sided numbness COMPARISON: Thoracic spine CT on the same date TECHNIQUE: Routine Thoracic Spine MRI without IV contrast. FINDINGS: Normal vertebral body heights, alignment and marrow signal. Normal discheights. No herniation. Normal facets. No spinal canal or neural foraminalstenosis. No abnormal cord signal. No extraspinal abnormality. IMPRESSION: 1. Unremarkable MRI thoracic spine. Pennie Bernal MD IMG MRI ORDERABLES Final Result * Cervical spine MRI w/o contrast (07/09/2024 4:21 AM CDT) Anatomical Region Laterality Modality Spine, SUBRAD MR NEURO, UMP MR SPINE, RAD MR Magnetic Resonance 07/09/2024 4:21 AM CDT Impressions 07/09/2024 4:30 AM CDT IMPRESSION: 1. ??Straightening of the usual cervical lordosis. 2. ??Otherwise unremarkable. Narrative 07/09/2024 4:30 AM CDT EXAM: MR CERVICAL SPINE W/O CONTRAST LOCATION: [facility] DATE: 07/09/2024 INDICATION: left hand numbness, fall yesterday COMPARISON: Cervical spine CT on the same date TECHNIQUE: MRI Cervical Spine without IV contrast. FINDINGS: Straightening of the usual cervical lordosis. Normal vertebral body heights, alignment and marrow signal. No abnormal cord signal. No extraspinal abnormality. Craniovertebral junction and C1-C2: Normal. C2-C3 there is C7-T1: Normal disc height. No herniation. Normal facets. No spinal canal or neural foraminal stenosis. Procedure Note Aston Cowan MD - 07/09/2024 EXAM: MR CERVICAL SPINE W/O CONTRAST LOCATION: [facility] DATE: 07/09/2024 INDICATION: left hand numbness, fall yesterday COMPARISON: Cervical spine CT on the same date TECHNIQUE: MRI Cervical Spine without IV contrast. FINDINGS: Straightening of the usual cervical lordosis. Normal vertebral bodyheights, alignment and marrow signal. No abnormal cord signal. Noextraspinal abnormality. Craniovertebral junction and C1-C2: Normal. C2-C3 there is C7-T1: Normal disc height. No herniation. Normal facets. Nospinal canal or neural foraminal stenosis. IMPRESSION: 1. Straightening of the usual cervical lordosis. 2. Otherwise unremarkable. Pennie Bernal MD IM MRI ORDERABLES Final Result * CT Thoracic Spine w/o Contrast (07/09/2024 2:22 AM CDT) Anatomical Region Laterality Modality Spine, SUBRAD CT NEURO, UMP CT SPINE, RAD CT Computed Tomography 07/09/2024 2:22 AM CDT Impressions 07/09/2024 2:47 AM CDT IMPRESSION: CERVICAL SPINE CT: 1. ??No fracture or posttraumatic subluxation. 2. ??No high-grade spinal canal or neural foraminal stenosis. 3. ??Straightening of the usual cervical lordosis. THORACIC SPINE CT: 1. ??No fracture or posttraumatic subluxation. 2. ??No high-grade spinal canal or neural foraminal stenosis. Narrative 07/09/2024 2:47 AM CDT EXAM: CT CERVICAL SPINE W/O CONTRAST, CT THORACIC SPINE W/O CONTRAST LOCATION: [facility] DATE: 07/09/2024 INDICATION: left hand numbness, fall COMPARISON: None. TECHNIQUE: 1) Routine CT Cervical Spine without IV contrast. Multiplanar reformats. Dose reduction techniques were used. 2) Routine CT Thoracic Spine without IV contrast. Multiplanar reformats. Dose reduction techniques were used. FINDINGS: CERVICAL SPINE CT: VERTEBRA: Straightening of the usual cervical lordosis. Normal vertebral body heights and alignment. No fracture or posttraumatic subluxation. CANAL/FORAMINA: No canal or neural foraminal stenosis. PARASPINAL: No extraspinal abnormality. THORACIC SPINE CT: VERTEBRA: Normal vertebral body heights and alignment. No fracture or posttraumatic subluxation. CANAL/FORAMINA: No canal or neural foraminal stenosis. PARASPINAL: No extraspinal abnormality. Procedure Note Aston Cowan MD - 07/09/2024 EXAM: CT CERVICAL SPINE W/O CONTRAST, CT THORACIC SPINE W/O CONTRAST LOCATION: [facility] DATE: 07/09/2024 INDICATION: left hand numbness, fall COMPARISON: None. TECHNIQUE: 1) Routine CT Cervical Spine without IV contrast. Multiplanar reformats.Dose reduction techniques were used. 2) Routine CT Thoracic Spine without IV contrast. Multiplanar reformats.Dose reduction techniques were used. FINDINGS: CERVICAL SPINE CT: VERTEBRA: Straightening of the usual cervical lordosis. Normal vertebralbody heights and alignment. No fracture or posttraumatic subluxation. CANAL/FORAMINA: No canal or neural foraminal stenosis. PARASPINAL: No extraspinal abnormality. THORACIC SPINE CT: VERTEBRA: Normal vertebral body heights and alignment. No fracture orposttraumatic subluxation. CANAL/FORAMINA: No canal or neural foraminal stenosis. PARASPINAL: No extraspinal abnormality. IMPRESSION: CERVICAL SPINE CT: 1. No fracture or posttraumatic subluxation. 2. No high-grade spinal canal or neural foraminal stenosis. 3. Straightening of the usual cervical lordosis. THORACIC SPINE CT: 1. No fracture or posttraumatic subluxation. 2. No high-grade spinal canal or neural foraminal stenosis. us Pennie Bernal MD IMG CT ORDERABLES Final R esult * CT Cervical Spine w/o Contrast (07/09/2024 2:22 AM CDT) Only the most recent of3 resultswithin the time period is included. Anatomical Region Laterality Modality Spine, SUBRAD CT NEURO, SUBR AD CT NEURO, UMP CT SPINE, RAD CT Computed Tomography 07/09/2024 2:22 AM CDT Impressions 07/09/2024 2:47 AM CDT IMPRESSION: CERVICAL SPINE CT: 1. ??No fracture or posttraumatic subluxation. 2. ??No high-grade spinal canal or neural foraminal stenosis. 3. ??Straightening of the usual cervical lordosis. THORACIC SPINE CT: 1. ??No fracture or posttraumatic subluxation. 2. ??No high-grade spinal canal or neural foraminal stenosis. Narrative 07/09/2024 2:47 AM CDT EXAM: CT CERVICAL SPINE W/O CONTRAST, CT THORACIC SPINE W/O CONTRAST LOCATION: [facility] DATE: 07/09/2024 INDICATION: left hand numbness, fall COMPARISON: None. TECHNIQUE: 1) Routine CT Cervical Spine without IV contrast. Multiplanar reformats. Dose reduction techniques were used. 2) Routine CT Thoracic Spine without IV contrast. Multiplanar reformats. Dose reduction techniques were used. FINDINGS: CERVICAL SPINE CT: VERTEBRA: Straightening of the usual cervical lordosis. Normal vertebral body heights and alignment. No fracture or posttraumatic subluxation. CANAL/FORAMINA: No canal or neural foraminal stenosis. PARASPINAL: No extraspinal abnormality. THORACIC SPINE CT: VERTEBRA: Normal vertebral body heights and alignment. No fracture or posttraumatic subluxation. CANAL/FORAMINA: No canal or neural foraminal stenosis. PARASPINAL: No extraspinal abnormality. Procedure Note Aston Cowan MD - 07/09/2024 EXAM: CT CERVICAL SPINE W/O CONTRAST, CT THORACIC SPINE W/O CONTRAST LOCATION: [facility] DATE: 07/09/2024 INDICATION: left hand numbness, fall COMPARISON: None. TECHNIQUE: 1) Routine CT Cervical Spine without IV contrast. Multiplanar reformats.Dose reduction techniques were used. 2) Routine CT Thoracic Spine without IV contrast. Multiplanar reformats.Dose reduction techniques were used. FINDINGS: CERVICAL SPINE CT: VERTEBRA: Straightening of the usual cervical lordosis. Normal vertebralbody heights and alignment. No fracture or posttraumatic subluxation. CANAL/FORAMINA: No canal or neural foraminal stenosis. PARASPINAL: No extraspinal abnormality. THORACIC SPINE CT: VERTEBRA: Normal vertebral body heights and alignment. No fracture orposttraumatic subluxation. CANAL/FORAMINA: No canal or neural foraminal stenosis. PARASPINAL: No extraspinal abnormality. IMPRESSION: CERVICAL SPINE CT: 1. No fracture or posttraumatic subluxation. 2. No high-grade spinal canal or neural foraminal stenosis. 3. Straightening of the usual cervical lordosis. THORACIC SPINE CT: 1. No fracture or posttraumatic subluxation. 2. No high-grade spinal canal or neural foraminal stenosis. Pennie Bernal MD IM CT ORDERABLES Final R esult * (ABNORMAL) Hepatic panel (07/09/2024 1:22 AM CDT) Only the most recent of2 resultswithin the time period is included. Protein Total 7.0 6.4 - 8.3 g/dL 07/09/2024 5:05 AM CDT [facility] Albumin 3.8 3.5 - 5.2 g/dL 07/09/2024 5:05 AM CDT [facility] Bilirubin Total <0.2 <=1.2 mg/dL 07/09/2024 5:05 AM CDT [facility] Alkaline Phosphatase 201(H) 40 - 150 U/L 07/09/2024 5:05 AM CDT [facility] AST 49(H) 0 - 45 U/L 07/09/2024 5:05 AM CDT [facility] ALT 122(H) 0 - 50 U/L 07/09/2024 5:05 AM CDT [facility] Bilirubin Direct <0.20 0.00 - 0.30 mg/dL 07/09/2024 5:05 AM CDT [facility] LABORATORY Blood BLOOD SPECIMEN / Unknown Venipuncture / Unknown 07/09/2024 1:22 AM CDT 07/09/2024 1:27 AM CDT us Pennie Bernal MD LAB - BLOOD ORDERABLES Fi nal Result UR LABORATORY [facility] [address] [facility], [address] [place] [address], [facility] * MR Lumbar Spine w/o Contrast (07/07/2024 10:46 PM CDT) Anatomical Region Laterality Modality Spine, SUBRAD MR NEURO, UMP MR SPINE, RAD MR Magnetic Resonance 07/07/2024 10:4 6 PM CDT Impressions 07/07/2024 11:15 PM CDT CONCLUSION: 1. ??No previous left hemilaminectomy. Mild lumbar spondylosis. No canal or foraminal narrowing. 2. ??No acute fracture. 3. ??Moderate degenerative disc disease L5-S1. Narrative 07/07/2024 11:15 PM CDT [facility] MR LUMBAR SPINE W/O CONTRAST 07/07/2024 10:46 PM CDT INDICATION: Left leg numbness, right foot numbness. Low back pain. Trauma and/or suspected fracture. Significant trauma. No lumbar CT result available; no known automatically detected potential contraindications to CT. TECHNIQUE: Routine. CONTRAST: None. COMPARISON: CT lumbar spine 07/07/2024. FINDINGS: Nomenclature is based on 5 lumbar type vertebral bodies. Rudimentary disc space at S1-S2. Mild Modic type II endplate change at L5-S1. No marrow edema. Normal distal spinal cord and cauda equina with conus medullaris at L1-L2. No definite extraspinal abnormality. Unremarkable visualized bony pelvis. T12-L1: Normal disc height and signal. No herniation. No facet arthropathy. No spinal canal stenosis. No right neural foraminal stenosis. No left neural foraminal stenosis. L1-L2: Normal disc height and signal. No herniation. No facet arthropathy. No spinal canal stenosis. No right neural foraminal stenosis. No left neural foraminal stenosis. L2-L3: Normal disc height and signal. No herniation. No facet arthropathy. No spinal canal stenosis. No right neural foraminal stenosis. No left neural foraminal stenosis. L3-L4: Normal disc height and signal. No herniation. No facet arthropathy. No spinal canal stenosis. No right neural foraminal stenosis. No left neural foraminal stenosis. L4-L5: Normal disc height and signal. Minimal disc bulging. No herniation. No facet arthropathy. No spinal canal stenosis. No right neural foraminal stenosis. No left neural foraminal stenosis. L5-S1: Moderate loss of disc height and mild loss of T2 signal. No herniation. Mild facet arthropathy. No spinal canal stenosis. No right neural foraminal stenosis. No left neural foraminal stenosis. Procedure Note Pratik Ruggiero MD - 07/07/2024 [facility] MR LUMBAR SPINE W/O CONTRAST 07/07/2024 10:46 PM CDT INDICATION: Left leg numbness, right foot numbness. Low back pain. Traumaand/or suspected fracture. Significant trauma. No lumbar CT resultavailable; no known automatically detected potential contraindications toCT. TECHNIQUE: Routine. CONTRAST: None. COMPARISON: CT lumbar spine 07/07/2024. FINDINGS: Nomenclature is based on 5 lumbar type vertebral bodies.Rudimentary disc space at S1-S2. Mild Modic type II endplate change atL5-S1. No marrow edema. Normal distal spinal cord and cauda equina withconus medullaris at L1-L2. No definite extraspinal abnormality. Unremarkable visualized bony pelvis. T12-L1: Normal disc height and signal. No herniation. No facetarthropathy. No spinal canal stenosis. No right neural foraminal stenosis.No left neural foraminal stenosis. L1-L2: Normal disc height and signal. No herniation. No facet arthropathy.No spinal canal stenosis. No right neural foraminal stenosis. No leftneural foraminal stenosis. L2-L3: Normal disc height and signal. No herniation. No facet arthropathy.No spinal canal stenosis. No right neural foraminal stenosis. No leftneural foraminal stenosis. L3-L4: Normal disc height and signal. No herniation. No facet arthropathy.No spinal canal stenosis. No right neural foraminal stenosis. No leftneural foraminal stenosis. L4-L5: Normal disc height and signal. Minimal disc bulging. No herniation.No facet arthropathy. No spinal canal stenosis. No right neural foraminalstenosis. No left neural foraminal stenosis. L5-S1: Moderate loss of disc height and mild loss of T2 signal. Noherniation. Mild facet arthropathy. No spinal canal stenosis. No rightneural foraminal stenosis. No left neural foraminal stenosis. CONCLUSION: 1. No previous left hemilaminectomy. Mild lumbar spondylosis. No canal orforaminal narrowing. 2. No acute fracture. 3. Moderate degenerative disc disease L5-S1. us Judson Peralta MD [facility] MRI ORDERABLES Final Resul t * US Abdomen Complete (07/07/2024 9:48 PM CDT) Anatomical Region Laterality Modality Abdomen/Pelvis Ultrasound Impressions 07/08/2024 10:02 AM CDT IMPRESSION: ??Hepatomegaly. No focal liver lesion demonstrated. Finding of hepatomegaly discussed with ER provided by Yg at 10:00 AM 07/08/2024 10:02 AM I have personally reviewed the examination and initial interpretation and I agree with the findings. EARLENE RONQUILLO MD Narrative 07/08/2024 10:02 AM CDT EXAMINATION: US ABDOMEN COMPLETE, ??07/07/2024 9:48 PM COMPARISON: Renal ultrasound 11/11/2023, CT lumbar spine 07/07/2024, MRI lumbar spine 04/06/2024; CT 03/11/2024 HISTORY: trauma, elevated liver enzymes TECHNIQUE: The abdomen was scanned in standard fashion with specialized ultrasound transducer(s) using both downing-scale and limited color Doppler techniques. FINDINGS: Liver: The liver demonstrates normal homogeneous echotexture, measuring 19.0 cm. No evidence of a focal hepatic mass. The main portal vein is patent with antegrade flow, measuring 1.2 cm. Gallbladder: Surgically absent Bile Ducts: No intrahepatic biliary ductal dilatation demonstrated. The visualized common bile duct measures 4 in diameter. Pancreas: Visualized portions of the head and body of the pancreas are unremarkable. Pancreas is partially obscured Kidneys: Both kidneys are of normal echotexture, without mass or hydronephrosis. ??Focal confluent area in the left kidney, possibly prominent column of Sourav, similar compared to prior exams. The craniocaudal dimensions are: right- 10.4 cm, left- 10.9 cm. Spleen: The spleen is normal in size, ??measuring 12.5 in sagittal dimension. Aorta and IVC: The visualized portions of the aorta and IVC are unremarkable. The proximal aorta measures 1.9 cm in diameter. Fluid: No evidence of ascites or pleural effusions. Procedure Note Earlene Ronquillo MD - 07/08/2024 EXAMINATION: US ABDOMEN COMPLETE, 07/07/2024 9:48 PM COMPARISON: Renal ultrasound 11/11/2023, CT lumbar spine 07/07/2024, MRI lumbar spine 04/06/2024; CT 03/11/2024 HISTORY: trauma, elevated liver enzymes TECHNIQUE: The abdomen was scanned in standard fashion with specialized ultrasound transducer(s) using both downing-scale and limited color Doppler techniques. FINDINGS: Liver: The liver demonstrates normal homogeneous echotexture, measuring 19.0 cm. No evidence of a focal hepatic mass. The main portal vein is patent with antegrade flow, measuring 1.2 cm. Gallbladder: Surgically absent Bile Ducts: No intrahepatic biliary ductal dilatation demonstrated. The visualized common bile duct measures 4 in diameter. Pancreas: Visualized portions of the head and body of the pancreas are unremarkable. Pancreas is partially obscured Kidneys: Both kidneys are of normal echotexture, without mass or hydronephrosis. Focal confluent area in the left kidney, possibly prominent column of Sourav, similar compared to prior exams. The craniocaudal dimensions are: right- 10.4 cm, left- 10.9 cm. Spleen: The spleen is normal in size, measuring 12.5 in sagittal dimension. Aorta and IVC: The visualized portions of the aorta and IVC are unremarkable. The proximal aorta measures 1.9 cm in diameter. Fluid: No evidence of ascites or pleural effusions. IMPRESSION: Hepatomegaly. No focal liver lesion demonstrated. Finding of hepatomegaly discussed with ER provided by Yg at 10:00 AM 07/08/2024 10:02 AM I have personally reviewed the examination and initial interpretation and I agree with the findings. EARLENE RONQUILLO MD us Judson Fabian DICKSON IMG US ORDERABLES Final Result * CT Lumbar Spine w/o Contrast (07/07/2024 4:25 PM CDT) Anatomical Region Laterality Modality Spine, SUBRAD CT NEURO, UMP CT SPINE, RAD CT Computed Tomography Impressions 07/07/2024 6:19 PM CDT IMPRESSION: 1. No acute fracture or traumatic subluxation. 2. Multilevel lumbar spondylosis, without high-grade spinal canal stenosis or neural foraminal narrowing. I have personally reviewed the examination and initial interpretation and I agree with the findings. CHRISTIANO JUÁREZ MD Narrative 07/07/2024 6:19 PM CDT EXAM: CT LUMBAR SPINE W/O CONTRAST ??07/07/2024 4:25 PM HISTORY: ??fall down 6 steps, syncopal episode, midline lumbar spine pain with decreased sensation down left leg ?? COMPARISON: ??MRI lumbar spine 04/06/2024 TECHNIQUE: Using multidetector thin collimation helical acquisition technique, axial, sagittal and coronal [address] reconstructions were obtained through the lumbar spine without intravenous contrast. ??Images were viewed in bone and soft tissue windows. FINDINGS: Transitional anatomy at S1, but in keeping with the prior numbering on previous exams, the last well-formed intervertebral disc is designated L4-5 with the rudimentary disc considered L5-S1 despite the fact that he should actually be S1-S2. Normal vertebral body alignment. Mild left convex scoliotic curvature. Mild disc height loss at L4-L5 with degenerative endplate changes including Schmorl's nodules.. No acute fracture. No suspicious osseous lesion. Postoperative changes of prior L4/5 left hemilaminectomy. Mild bilateral facet arthropathy particularly of the lower lumbar spine. Findings on a level by level basis are as follows: L1-L2: No spinal canal or neural foraminal stenosis L2-L3: No spinal canal or neural foraminal stenosis. L3-L4: Mild disc bulge with facet arthropathy, but no spinal canal stenosis or significant neural foraminal narrowing. L4-L5: Disc bulge without spinal canal stenosis. Bilateral facet arthropathy with mild foraminal narrowing bilaterally. L5-S1: No spinal canal or neural foraminal stenosis. The visualized adjacent paraspinous tissues are grossly within normal limits. Procedure Note Christiano Juárez MD - 07/07/2024 EXAM: CT LUMBAR SPINE W/O CONTRAST 07/07/2024 4:25 PM HISTORY: fall down 6 steps, syncopal episode, midline lumbar spine pain with decreased sensation down left leg COMPARISON: MRI lumbar spine 04/06/2024 TECHNIQUE: Using multidetector thin collimation helical acquisition technique, axial, sagittal and coronal [address] reconstructions were obtained through the lumbar spine without intravenous contrast. Images were viewed in bone and soft tissue windows. FINDINGS: Transitional anatomy at S1, but in keeping with the prior numbering on previous exams, the last well-formed intervertebral disc is designated L4-5 with the rudimentary disc considered L5-S1 despite the fact that he should actually be S1-S2. Normal vertebral body alignment. Mild left convex scoliotic curvature. Mild disc height loss at L4-L5 with degenerative endplate changes including Schmorl's nodules.. No acute fracture. No suspicious osseous lesion. Postoperative changes of prior L4/5 left hemilaminectomy. Mild bilateral facet arthropathy particularly of the lower lumbar spine. Findings on a level by level basis are as follows: L1-L2: No spinal canal or neural foraminal stenosis L2-L3: No spinal canal or neural foraminal stenosis. L3-L4: Mild disc bulge with facet arthropathy, but no spinal canal stenosis or significant neural foraminal narrowing. L4-L5: Disc bulge without spinal canal stenosis. Bilateral facet arthropathy with mild foraminal narrowing bilaterally. L5-S1: No spinal canal or neural foraminal stenosis. The visualized adjacent paraspinous tissues are grossly within normal limits. IMPRESSION: 1. No acute fracture or traumatic subluxation. 2. Multilevel lumbar spondylosis, without high-grade spinal canal stenosis or neural foraminal narrowing. I have personally reviewed the examination and initial interpretation and I agree with the findings. CHRISTIANO JUÁREZ MD Kamryn Moreau DO IMG CT ORDERABLES Final Result * Lactic acid whole blood with 1x repeat in 2 hr when >2 (07/07/2024 9:17 AM CDT) Lactic Acid, Initial 1.2 0.7 - 2.0 mmol/L 07/07/2024 9:27 AM CDT [facility] Blood BLOOD SPECIMEN / Unknown Venipuncture / Unknown 07/07/2024 9:17 AM CDT 07/07/2024 9:25 AM CDT Kamryn Moreau DO LAB - BLOOD ORDERABLES Final Res ult LABORATORY [facility] [place] [facility] [address] [facility], [address] * (ABNORMAL) Phosphorus (07/07/2024 9:17 AM CDT) Phosphorus 4.9(H) 2.5 - 4.5 mg/dL 07/07/2024 9:55 AM CDT U LABORATORY Blood BLOOD SPECIMEN / Unknown Venipuncture / Unknown 07/07/2024 9:17 AM CDT 07/07/2024 9:25 AM CDT Kamryn Moreau DO LAB - BLOOD ORDERABLES Final Res ult Performing Organization Address City/[facility] Co de Phone Number LABORATORY [facility] Lab [address] [facility], [address] * Magnesium (07/07/2024 9:17 AM CDT) Only the most recent of2 resultswithin the time period is included. Magnesium 2.2 1.7 - 2.3 mg/dL 07/07/2024 9:55 AM CDT U LABORATORY Blood BLOOD SPECIMEN / Unknown Venipuncture / Unknown 07/07/2024 9:17 AM CDT 07/07/2024 9:25 AM CDT Kamryn Moreau DO LAB - BLOOD ORDERABLES Final Res ult LABORATORY [facility] Lab [address] [facility], [address] [place] [address] * HCG quantitative (07/07/2024 9:17 AM CDT) hCG Quantitative <1 <5 mIU/mL 07/07/20 11:44 AM CDT [facility] Comment: Adult: 0-5 mIU/mL for healthy non- person Neonates: Should be within normal ranges by 2 days after Blood BLOOD SPECIMEN / Unknown Venipuncture / Unknown 07/07/2024 9:17 AM CDT 07/07/2024 9:25 AM CDT Kamryn Moreau DO LAB - BLOOD ORDERABLES Final Res ult Performing Organization Address City/[facility]/ZIP Co de Phone Number LABORATORY [facility] Lab [address] [facility], [address] * (ABNORMAL) CK total (07/07/2024 9:17 AM CDT) Pathologist [facility] CK 24(L) 26 - 192 U/L 07/07/2024 9:55 AM CDT [facility] Blood BLOOD SPECIMEN / Unknown Venipuncture / Unknown 07/07/2024 9:17 AM CDT 07/07/2024 9:25 AM CDT Kamryn Moreau DO LAB - BLOOD ORDERABLES Final Res ult Performing Organization Address City/State/[facility] de Phone Number LABORATORY [facility] Lab [address] [facility], [address] * XR Knee Port Right G/E 4 Views (07/07/2024 8:41 AM CDT) Anatomical Region Laterality Modality Knee, Right Knee Right Computed Radiog shilpi Impressions 07/07/2024 8:59 AM CDT Impression: 1. No acute osseous abnormality. 2. No substantial degenerative change. GA Evgen Narrative 07/07/2024 8:59 AM CDT 2 views right knee radiographs 07/07/2024 8:52 AM History: fell down stairs, right upper anterior knee pain Comparison: 01/05/2024 Findings: AP and crosstable lateral views of the right knee were obtained. No acute osseous abnormality. ??No joint effusion. No substantial degenerative change. Nonspecific soft tissue mineralization lateral aspect of the knee, similar finding was present on comparison study, may be sequela of remote trauma or vascular. Apparent dystrophic calcifications anterior aspect of mid leg and distal thigh. Procedure Note Ga Patricio MD - 07/07/2024 2 views right knee radiographs 07/07/2024 8:52 AM History: fell down stairs, right upper anterior knee pain Comparison: 01/05/2024 Findings: AP and crosstable lateral views of the right knee were obtained. No acute osseous abnormality. No joint effusion. No substantial degenerative change. Nonspecific soft tissue mineralization lateral aspect of the knee, similar finding was present on comparison study, may be sequela of remote trauma or vascular. Apparent dystrophic calcifications anterior aspect of mid leg and distal thigh. Impression: 1. No acute osseous abnormality. 2. No substantial degenerative change. GA PATRICIO us Kamryn Moreau DO [facility] ORDERABLE S Final Result * POC US RESUSCITATION (07/07/2024 7:39 AM CDT) Anatomical Region Laterality Modality Other Impressions 07/07/2024 7:39 AM CDT Bedside FAST (Focused Assessment with Sonography in Trauma), performed and interpreted by me. Indication: Trauma and Weakness With the patient in Trendelenburg, the RUQ, LUQ and subxiphoid views were examined for intraabdominal and thoracic free fluid and pericardial effusion. With the patient in reverse Trendelenburg, the suprapubic view was examined for intraabdominal free fluid. Image quality was limited secondary to patient positioning and tolerance. Findings: There is no evidence of free fluid above or below bilateral diaphragms, in the splenorenal or hepatorenal space, or in bilateral paracolic gutters. There was no free fluid seen in the pelvis adjacent to the urinary bladder. There is no free fluid within the pericardium. Extended FAST exam (eFAST): Indication: Trauma The chest wall was evaluated for evidence of pneumothorax. Right side: Lung sliding artifact Present Left side: Lung sliding artifact Unable to visualize due to patient laying on her left side IMPRESSION: ??Limited FAST exam secondary to patient positioning and tolerance. There is no evidence of free fluid above or below right diaphragm, in the hepatorenal space, or the right paracolic gutters. Unable to visualize left side. ??There was no free fluid seen in the pelvis adjacent to the urinary bladder. There is no free fluid within the pericardium. Kamryn Moreau DO IMG POCUS Final Result * XR Shoulder Left G/E 3 Views (07/05/2024 6:39 PM CDT) Anatomical Region Laterality Modality Shoulder, Left Shoulder Left Digital Radiography 07/05/2024 6:39 PM CDT Impressions 07/05/2024 7:00 PM CDT IMPRESSION: No acute fracture or malalignment. There is normal joint spacing. Narrative 07/05/2024 7:00 PM CDT EXAM: XR SHOULDER LEFT G/E 3 VIEWS LOCATION: [facility] DATE: 07/05/2024 INDICATION: Left shoulder pain COMPARISON: None. Procedure Note Josh Pate MD - 07/05/2024 EXAM: XR SHOULDER LEFT G/E 3 VIEWS LOCATION: [facility] DATE: 07/05/2024 INDICATION: Left shoulder pain COMPARISON: None. IMPRESSION: No acute fracture or malalignment. There is normal jointspacing. Livia Gutierrez MD IMG DIAGNOSTIC IMAGING O RDERABLES Final Result * Extra Blue Top Tube (06/28/2024 2:27 PM CDT) Pathologist [facility] Hold Specimen [facility] 06/28/2024 3:31 PM CDT LABORATORY Blood BLOOD SPECIMEN / Unknown Venipuncture / Unknown 06/28/2024 2:27 PM CDT 06/28/2024 2:30 PM CDT Luisito Chopra MD LAB - BLOOD ORDERABLES Lalita l Result [facility]ORY [facility] [address], [address] [place] [address], [facility] [phone] * Lipase (06/28/2024 2:27 PM CDT) Lipase 58 13 - 60 U/L 06/28/2024 3:06 PM CDT LABORATORY Blood BLOOD SPECIMEN / Unknown Venipuncture / Unknown 06/28/2024 2:27 PM CDT 06/28/2024 2:30 PM CDT Luisito Chopra MD LAB - BLOOD ORDERABLES Lalita l Result Performing Organization Address City/[facility]/ZIP Co de Phone Number LABORATORY [facility] [address], [address] [place] [address], [place] [phone] * CT Chest Pulmonary Embolism w Contrast (06/27/2024 5:10 PM CDT) Anatomical Region Laterality Modality Chest, SUBRAD CT BODY, UMP CT CHEST Computed Tomography 06/27/2024 5:10 PM CDT Impressions 06/27/2024 5:23 PM CDT IMPRESSION: 1. ??No evidence for pulmonary emboli. 2. ??No evidence for acute pulmonary disease. 3. ??Interval resolution most of the pulmonary nodules present on the previous exam, with residual 4 mm nodule. Please see guidelines below for follow-up. REFERENCE: Guidelines for Management of Incidental Pulmonary Nodules Detected on CT Images: From the Fleischner Society 2017. Guidelines apply to incidental nodules in patients who are 35 years or older. Guidelines do not apply to lung cancer screening, patients with immunosuppression, or patients with known primary cancer. SINGLE NODULE Nodule size <6 mm Low-risk patients: No follow-up needed. High-risk patients: Optional follow-up at 12 months. Nodule size 6-8 mm Low-risk patients: Follow-up CT at 6-12 months, then consider CT at 18-24 months. High-risk patients: Follow-up CT at 6-12 months, then at 18-24 months if no change. Nodule size >8 mm Either low or high-risk patients: Consider CT, PET/CT, or tissue sampling at 3 months. Narrative 06/27/2024 5:23 PM CDT EXAM: CT CHEST PULMONARY EMBOLISM W CONTRAST LOCATION: [facility] DATE: 06/27/2024 INDICATION: Tachycardic, elevated dimer COMPARISON: CTA chest 06/09/2024] TECHNIQUE: CT chest pulmonary angiogram during arterial phase injection of IV contrast. Multiplanar reformats and MIP reconstructions were performed. Dose reduction techniques were used. CONTRAST: 77 mL Isovue 370 FINDINGS: ANGIOGRAM CHEST: Pulmonary arteries are normal caliber and negative for pulmonary emboli. Thoracic aorta is negative for dissection. No CT evidence of right heart strain. LUNGS AND PLEURA: Mild dependent atelectasis, left greater than right. Most of the small nodules seen previously within both lungs have resolved. There remains a 4 mm nodule right middle lobe on image 129 of series 5. Tiny calcified granuloma right upper lobe. The lungs otherwise are clear. No acute infiltrates or effusions. MEDIASTINUM/AXILLAE: Normal. No adenopathy. CORONARY ARTERY CALCIFICATION: None. UPPER ABDOMEN: Fatty infiltration of the liver. Cholecystectomy. Borderline splenomegaly measuring 13.5 cm. MUSCULOSKELETAL: Normal. Procedure Note Suman Mcclure MD - 06/27/2024 EXAM: CT CHEST PULMONARY EMBOLISM W CONTRAST LOCATION: [facility] DATE: 06/27/2024 INDICATION: Tachycardic, elevated dimer COMPARISON: CTA chest 06/09/2024] TECHNIQUE: CT chest pulmonary angiogram during arterial phase injection ofIV contrast. Multiplanar reformats and MIP reconstructions were performed.Dose reduction techniques were used. CONTRAST: 77 mL Isovue 370 FINDINGS: ANGIOGRAM CHEST: Pulmonary arteries are normal caliber and negative forpulmonary emboli. Thoracic aorta is negative for dissection. No CTevidence of right heart strain. LUNGS AND PLEURA: Mild dependent atelectasis, left greater than right.Most of the small nodules seen previously within both lungs have resolved.There remains a 4 mm nodule right middle lobe on image 129 of series 5.Tiny calcified granuloma right upper lobe. The lungs otherwise are clear. No acute infiltrates or effusions. MEDIASTINUM/AXILLAE: Normal. No adenopathy. CORONARY ARTERY CALCIFICATION: None. UPPER ABDOMEN: Fatty infiltration of the liver. Cholecystectomy.Borderline splenomegaly measuring 13.5 cm. MUSCULOSKELETAL: Normal. IMPRESSION: 1. No evidence for pulmonary emboli. 2. No evidence for acute pulmonary disease. 3. Interval resolution most of the pulmonary nodules present on theprevious exam, with residual 4 mm nodule. Please see guidelines below forfollow-up. REFERENCE: Guidelines for Management of Incidental Pulmonary Nodules Detected on CTImages: From the Fleischner Society 2017. Guidelines apply to incidental nodules in patients who are 35 years orolder. Guidelines do not apply to lung cancer screening, patients withimmunosuppression, or patients with known primary cancer. SINGLE NODULE Nodule size <6 mm Low-risk patients: No follow-up needed. High-risk patients: Optional follow-up at 12 months. Nodule size 6-8 mm Low-risk patients: Follow-up CT at 6-12 months, then consider CT at 18-24months. High-risk patients: Follow-up CT at 6-12 months, then at 18-24 months ifno change. Nodule size >8 mm Either low or high-risk patients: Consider CT, PET/CT, or tissue sampling at 3 months. Sam Botello PA-C Ozzy CT ORDERABLES Final Resul t * CT Facial Bones without Contrast (06/27/2024 5:08 PM CDT) Anatomical Region Laterality Modality Head, SUBRAD CT NEURO, UMP CT NEURO, RAD CT Computed Tomography 06/27/2024 5:08 PM CDT Narrative 06/27/2024 5:26 PM CDT EXAM: CT HEAD W/O CONTRAST, CT FACIAL BONES WITHOUT CONTRAST, CT CERVICAL SPINE W/O CONTRAST LOCATION: [facility] DATE: 06/27/2024 INDICATION: Fall with headache, loss of consciousness, and right-sided facial/nasal pain COMPARISON: Head CT dated 02/07/[address] dated 06/24/2024 TECHNIQUE: 1) Routine CT Head without IV contrast. Multiplanar reformats. Dose reduction techniques were used. 2) Routine CT Facial Bones without IV contrast. Multiplanar reformats. Dose reduction techniques were used. 3) Routine CT Cervical Spine without IV contrast. Multiplanar reformats. Dose reduction techniques were used. FINDINGS: HEAD CT: INTRACRANIAL CONTENTS: No acute intracranial hemorrhage, extraaxial collection, or mass effect. No evidence of an acute transcortical confluent infarct. Normal parenchymal attenuation. Normal ventricles and sulci for age. BONES/SOFT TISSUES: No acute calvarial injury or significant scalp hematoma. Hyperostosis frontalis interna. FACIAL BONE CT: OSSEOUS STRUCTURES/SOFT TISSUES: No significant localized soft tissue swelling/inflammation. No acute facial bone fracture or malalignment. No evidence for acute dental trauma or periapical abscess. A few dental caries, most notably involving bilateral maxillary and right mandibular molars. ORBITAL CONTENTS: No acute intraorbital abnormality. SINUSES/MASTOIDS: No evidence of significant paranasal sinus or mastoid mucosal disease. CERVICAL SPINE CT: VERTEBRA: No acute fracture, traumatic listhesis, or compression deformity. Straightening of the normal cervical lordosis, likely positional/due to neck spasm. Similar mild multilevel spondylosis with mild intervertebral disc height loss at C4-C6. CANAL/FORAMINA: No high-grade spinal canal or foraminal stenosis. EXTRASPINAL: No prevertebral edema. No focal pulmonary consolidation, pneumothorax, or pleural effusion within the visualized chest. HEAD CT: 1. ??No acute intracranial abnormality. FACIAL BONE CT: 1. ??No acute facial bone fracture or temporomandibular joint malalignment. 2. ??Scattered dental carious disease. CERVICAL SPINE CT: 1. ??No acute fracture or posttraumatic subluxation. 2. ??No high-grade spinal canal or neural foraminal stenosis. Procedure Note Jaqueline Espinoza MD - 06/27/2024 EXAM: CT HEAD W/O CONTRAST, CT FACIAL BONES WITHOUT CONTRAST, CT CERVICALSPINE W/O CONTRAST LOCATION: [facility] DATE: 06/27/2024 INDICATION: Fall with headache, loss of consciousness, and right- sidedfacial/nasal pain COMPARISON: Head CT dated 02/07/[address] date06/24/2024 TECHNIQUE: 1) Routine CT Head without IV contrast. Multiplanar reformats. Dosereduction techniques were used. 2) Routine CT Facial Bones without IV contrast. Multiplanar reformats.Dose reduction techniques were used. 3) Routine CT Cervical Spine without IV contrast. Multiplanar reformats.Dose reduction techniques were used. FINDINGS: HEAD CT: INTRACRANIAL CONTENTS: No acute intracranial hemorrhage, extraaxialcollection, or mass effect. No evidence of an acute transcorticalconfluent infarct. Normal parenchymal attenuation. Normal ventricles andsulci for age. BONES/SOFT TISSUES: No acute calvarial injury or significant scalphematoma. Hyperostosis frontalis interna. FACIAL BONE CT: OSSEOUS STRUCTURES/SOFT TISSUES: No significant localized soft tissueswelling/inflammation. No acute facial bone fracture or malalignment. Noevidence for acute dental trauma or periapical abscess. A few dentalcaries, most notably involving bilateral maxillary and right mandibular molars. ORBITAL CONTENTS: No acute intraorbital abnormality. SINUSES/MASTOIDS: No evidence of significant paranasal sinus or mastoidmucosal disease. CERVICAL SPINE CT: VERTEBRA: No acute fracture, traumatic listhesis, or compressiondeformity. Straightening of the normal cervical lordosis, likelypositional/due to neck spasm. Similar mild multilevel spondylosis withmild intervertebral disc height loss at C4-C6. CANAL/FORAMINA: No high-grade spinal canal or foraminal stenosis. EXTRASPINAL: No prevertebral edema. No focal pulmonary consolidation,pneumothorax, or pleural effusion within the visualized chest. HEAD CT: 1. No acute intracranial abnormality. FACIAL BONE CT: 1. No acute facial bone fracture or temporomandibular jointmalalignment. 2. Scattered dental carious disease. CERVICAL SPINE CT: 1. No acute fracture or posttraumatic subluxation. 2. No high-grade spinal canal or neural foraminal stenosis. Sam Botello PA-C Ozzy CT ORDERABLES Final Resul t * Adult Type and Screen (06/27/2024 3:52 PM CDT) ABO/RH(D) O POS 06/27/2024 3:31 PM CDT BLOOD BANK Antibody Screen Negative Negative 06/27/2024 3:31 PM CDT BLOOD BANK SPECIMEN EXPIRATION DATE [id number] 06/27/2024 3:31 PM CDT BLOOD BANK Blood BLOOD SPECIMEN / Unknown Venipuncture / Unknown 06/27/2024 3:52 PM CDT 06/27/2024 3:59 PM CDT Sam Botello PA-C LAB - BLOOD BANK TEST ORDER F inal Result Performing Organization Address City/[facility]/ZIP Co de Phone Number BLOOD BANK [address] [place] [address], [facility] * (ABNORMAL) D dimer quantitative (06/27/2024 3:52 PM CDT) D-Dimer Quantitative 1.22(H) 0.00 - 0.50 ug/mL FEU 06/27/2024 4:16 PM CDT LABORATORY Blood BLOOD SPECIMEN / Unknown Venipuncture / Unknown 06/27/2024 3:52 PM CDT 06/27/2024 3:59 PM CDT Narrative LABORATORY - 06/27/2024 4:16 PM CDT This D-dimer assay is intended for use in conjunction with a clinical pretest probability assessment model to exclude pulmonary embolism (PE) and deep venous thrombosis (DVT) in outpatients suspected of PE or DVT. The cut-off value is 0.50 ug/mL FEU. Sam Botello PA-C LAB - BLOOD ORDERABLES Final Result Performing Organization Address City/[facility]/ZIP Co de Phone Number LABORATORY [facility] [address] 1[address] floor, [address] [place] [address], [facility] [phone] * Manual Differential (06/25/2024 5:00 PM CDT) % Neutrophils 61 % [facility] 06/25/2024 5:37 PM CDT LABORATORY % Lymphocytes 31 % [place] 06/25/2024 5:37 PM CDT LABORATORY % Monocytes 5 % [facility] 06/25/2024 5:37 PM CDT LABORATORY % Eosinophils 3 % [place] 06/25/2024 5:37 PM CDT LABORATORY % Basophils 0 % [place] 06/25/2024 5:37 PM CDT LABORATORY Absolute Neutrophils 4.1 1.6 - 8.3 10e3/uL [facility] 06/25/2024 5:37 PM CDT LABORATORY Absolute Lymphocytes 2.1 0.8 - 5.3 10e3/uL [place] 06/25/2024 5:37 PM CDT LABORATORY Absolute Monocytes 0.3 0.0 - 1.3 10e3/uL [place] 06/25/2024 5:37 PM CDT LABORATORY Absolute Eosinophils 0.2 0.0 - 0.7 10e3/uL [place] 06/25/2024 5:37 PM CDT LABORATORY Absolute Basophils 0.0 0.0 - 0.2 10e3/uL [place] 06/25/2024 5:37 PM CDT LABORATORY RBC Morphology Confirmed RBC Indices [facility] 06/25/2024 5:37 PM CDT LABORATORY Platelet Assessment Automated Count Confirmed. Platelet morphology is normal. Automated Count Confirmed. Platelet morphology is normal. [facility] 06/25/2024 5:37 PM CDT LABORATORY Blood BLOOD SPECIMEN / Unknown Venipuncture / Unknown 06/25/2024 5:00 PM CDT 06/25/2024 5:06 PM CDT Santhosh Sánchez MD LAB - BLOOD ORDERABLES Final Result LABORATORY [facility] [address] 1[address] floor, [address] [place] [address], [facility] [phone] * Radius/Ulna XR, PA & LAT, right (06/24/2024 12:42 AM CDT) Anatomical Region Laterality Modality Forearm, Right Forearm Right Digital R adiography 06/24/2024 12:4 2 AM CDT Impressions 06/24/2024 1:00 AM CDT IMPRESSION: Within normal limits. No fracture. Narrative 06/24/2024 1:00 AM CDT EXAM: XR FOREARM RIGHT 2 VIEWS LOCATION: [facility] DATE: 06/24/2024 INDICATION: Arm pain COMPARISON: None. Procedure Note Genaro Sandoval MD - 06/24/2024 EXAM: XR FOREARM RIGHT 2 VIEWS LOCATION: [facility] DATE: 06/24/2024 INDICATION: Arm pain COMPARISON: None. IMPRESSION: Within normal limits. No fracture. us Mariela Herbert MD IMG DIAGNOSTIC IMAGING ORDERAB LES Final Result * (ABNORMAL) Lipid panel reflex to direct LDL Fasting (01/01/2023 11:43 AM MANAGER APPLIED) Cholesterol 294(H) <200 mg/dL 01/01/2023 9:16 PM MANAGER APPLIED [facility] Triglycerides 196(H) <150 mg/dL 01/01/2023 9:16 PM MANAGER APPLIED [facility] Direct Measure HDL 58 >=50 mg/dL 01/01/2023 9:16 PM MANAGER APPLIED [facility] LDL Cholesterol Calculated 197(H) <=100 mg/dL 01/01/2023 9:16 PM MANAGER APPLIED [facility] Non HDL Cholesterol 236(H) <130 mg/dL 01/01/2023 9:16 PM MANAGER APPLIED [facility] Blood BLOOD SPECIMEN / Unknown Capillary / Unknown 01/01/2023 11:43 AM MANAGER APPLIED 01/01/2023 11:57 AM MANAGER APPLIED Narrative [facility] - 01/01/2023 9:16 PM MANAGER APPLIED Cholesterol Desirable: ??<200 mg/dL Triglycerides Normal: ??Less [...] than or equal to 220 mg/dL Segundo Mcclelland MD LAB - BLOOD ORDERABLES F inal Result [facility] [place] [facility] [address] [facility], [address] [place] [address], [facility] [phone] * MA Diagnostic Bilateral w/Aaron (09/02/2018 8:20 [...] sites of clinical concern. Clinical followup recommended. us Villa Santamaria PA-C IMG MAMMOGRAPHY ORDERA BLES Final Result * Acute hepatitis panel (02/13/2016 10:56 AM CDT) Hepatitis A Antibody IgM Negative Negative 02/14/2016 9:22 AM CDT [facility] Hepatitis B Core Antibody IgM Negative Negative 02/14/2016 9:22 AM CDT [facility] Hepatitis B Surface Antigen Negative Negative 02/14/2016 9:22 AM CDT [facility] Hepatitis C Antibody Negative Negative 02/14/2016 9:22 AM CDT [facility] Blood specimen (specimen) 02/13/2016 10:56 AM CDT 02/13/2016 11:01 AM CDT us Meg Lee MD LAB - BLOOD ORDERABLES Final Res ult Performing Organization Address City/[facility]/ZIP Co de Phone Number O LAB [address] [place] [address], [facility] [address] [place] [address] * HIV 1 and 2 Antibody (11/24/2012 5:50 PM MANAGER APPLIED) HIV 1&2 Antibody Negative NEG [facility] Blood specimen (specimen) 11/24/2012 5:50 PM MANAGER APPLIED 11/24/2012 7:53 PM MANAGER APPLIED us Crissy Duncan MD LAB - BLOOD ORDERABLES Fin al Result Performing Organization Address [facility] Co de Phone Number [facility] [address] [place], [place] [address] * (ABNORMAL) A THIN LAYER, DIAGNOSTIC PAP (05/13/2009 12:00 AM CDT) PAP LSIL(A) ALDO Ruff Report Patient Name: IVELISSE CONTRERAS MR#: [id number] Specimen #: [id number] Collected: 05/13/2009 Received: 05/14/2009 Reported: 05/16/2009 15:27 [...] Virgilio Rocha M.D. 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 05/26/2024 Insurance [facility] Advance Directives For more information, please contact: [phone] * Full Code (Latest Code Status on File) Date Activated Date Inactivated Comments 05/06/2024 3:11 PM 05/08/2024 8:04 PM All basic and advanced life-sustaining interventions are performed as appropriate Question Answer Comments Code status determined by: Discussion with patie nt/ legal decision maker * Full Code Date Activated Date Inactivated Comments 04/06/2024 4:05 AM 04/11/2024 9:16 PM All basic and advanced life-sustaining interventions are performed as appropriate Question Answer Comments Code status determined by: Discussion with patie nt/ legal decision maker * Full Code Date Activated Date Inactivated Comments 03/06/2024 12:55 [...] Comments Code status determined by: Discussion with ngozie nt/ legal decision maker Care Teams Semiconductor Wafers Marker Relationship Specialty [place] [address] [address] [place] [id number] PCP - General Family Medicine 04/22/23 [place] [address] [place] [address] Assigned Pain Medication Provider 12/07/22 [place] [address] [address] [place] [address] Assigned PCP 01/23/23 Kingsley Garcia MD [address] [place] 268985 Assigned Heart and Vascular Provider 08/07/23 [place] [address] [address] [place] [address] Family Medicine 09/10/23 Master Shea PA-C [address] [place] [address] Physician Commercial Pest Control Technician Gastroenterology 09/10/23 Allyssa Justice MD [facility] [address] [place] 253855 Hematology & Oncology 12/10/23 Genaro Christian MD [address] [place], [place] [address] Cardiovascular Disease 12/22/23 Master Shea PA-C [address] [place] [address] Assigned Gastroenterology Provider 12/23/23 Sienna Guillermo DO [address] [place] [address] Physician Cardiovascular Disease 01/18/24 Allyssa Justice MD [facility] [address] [place] [id number] Assigned Cancer Care Provider 03/21/24 Declan Leavitt MD [address] [place] [address] Assigned Surgical Provider 07/21/24 Ugo Ochoa MD [address] [place], [place] 6[address] Assigned Neuroscience Provider 09/20/24
--- OUTSIDE RECORDS SUMMARY | 2024-09-21 22:39 | XMS_ITS | Encounter Summary ---
Author Organization [facility] [place] Address [address] [place] [address] Care Team Providers Care Security Flex Officer Name Role Phone Segundo Mcclelland MD Unavailable [phone] Segundo Mcclelland MD Unavailable Qamar Jackson MD Unavailable Segundo Mcclelland MD Primary Care Provider + Kingsley Garcia MD Unavailable Segundo Mcclelland MD Unavailable Master Shea PA-C Unavailable Allyssa Justice MD Unavailable [phone] Genaro Christian MD Unavailable [phone] Master Shea PA-C Unavailable Sienna Guillermo DO Unavailable [phone] Allyssa Justice MD Unavailable [phone] Declan Leavitt MD Unavailable Ugo Ochoa MD Unavailable Encounter Details Date Type Department Care Team (Late st Contact Info) Description 09/12/2024 [facility] [address] [place] [address] Krystina Bee RN Social History Tobacco Use Types Packs/Day Years Used Date Smoking Tobacco: Never Passive Smoke Exposure: Never Smokeless Tobacco: Never Alcohol Use Standard Drinks/Week Comments Not Currently [...] Answer Date Recorded Do you have housing? 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 Gender Identity Female 05/26/2021 10:37 AM CDT Sexual Orientation Straight 05/26/2021 10 :37 AM CDT Occupation Industry Job Start Date Job End Date unemployed Not on file Not on file Not on file Not on file Not on file Not on file Not on file documented as of this encounter Plan of Treatment Upcoming Encounters Date Type Department Care Team (Late st Contact Info) Description 02/20/2025 10:20 AM CDT Appointment [facility] [address] [place] [address] [place] [phone] Allyssa Justice MD [facility] [address] [place] [address] 02/27/2025 10:40 AM CDT Virtual Visit [facility] [address] [facility] [place] [phone] Allyssa Justice MD [facility] [address] [place] [id number] documented as of this encounter Visit Diagnoses Not on file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 Assessment Noted Time PHQ-9 Depression Total Score: 4 02/21/20 24 1:54 PM CDT documented as of this encounter Care Teams Security Flex Officer Relationship Specialty Start [place] [address] [place] [address] PCP - General Family Medicine 04/22/23 [place] [address] [place] [place] [address] Assigned Pain Medication Provider 12/07/22 [place] [address] [place] [place] [address] Assigned PCP 01/23/23 [place] [address] [address] [place] [address] Assigned Musculoskeletal Provider 01/23/23 09/19/24 Kingsley Garcia MD [address] [place] [address] Assigned Heart and Vascular Provider 08/07/23 [place] [address] [place] [address] Family Medicine 09/10/23 Master Shea PA-C [address] [place] [address] Physician Blue Line Trimmer Gastroenterology 09/10/23 Allyssa Justice MD [facility] [address] [place] [id number] Hematology & Oncology 12/10/23 Genaro Christian MD [address] [place] [address] 868445 Cardiovascular Disease 12/22/23 Master Shea PA-C [address] [place] [place] [address] Assigned Gastroenterology Provider 12/23/23 Sienna Guillermo DO [address] [place] 412[address] Physician Cardiovascular Disease 01/18/24 Allyssa Justice MD [facility] [address] [place] 467535 Assigned Cancer Care Provider 03/21/24 Declan Leavitt MD [address] [facility] [address] [place] [id number] Assigned Surgical Provider 07/21/24 Ugo Ochoa MD [address] [place], [place] 887[address] Assigned Neuroscience Provider 09/20/24 documented as of this encounter
--- OUTSIDE RECORDS SUMMARY | 2024-09-21 22:39 | XMS_ITS | Encounter Summary ---
Author Organization [facility] Address [address] [place] [address] Care Team Providers Care Lining Finisher Name Role Phone Segundo Mcclelland MD Unavailable [phone] Segundo Mcclelland MD Unavailable [phone] Segundo Mcclelland MD Primary Care Provider + Kingsley Garcia MD Unavailable + [phone] Segundo Mcclelland MD Unavailable [phone] Master Shea PA-C Unavailable Allyssa Justice MD Unavailable [phone] Genaro Christian MD Unavailable [phone] Master Shea PA-C Unavailable Sienna Guillermo DO Unavailable [phone] Allyssa Justice MD Unavailable [phone] Declan Leavitt MD Unavailable Ugo Ochoa MD Unavailable Encounter Details Date Type Department Care Team (Latest Contact Info) Description 09/21/2024 Travel Social History Tobacco Use Types Packs/Day [...] in an abandoned building, in an overnight prison, or couch-surfing.) Yes 08/26/2023 Are you worried [...] AM CDT 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 Gender Identity Female 05/26/2021 10:37 AM CDT [...] Info) Description 02/20/2025 10:20 AM CDT Appointment [facility] [place] [facility] [address] [place] [address] [place] [address] Allyssa Justice MD [facility] [address] [place] [address] 02/27/2025 10:40 AM CDT Virtual Visit [facility] Richard [address], [address] [facility] [place] [phone] Allyssa Justice MD [facility] [address] [place] [address] documented as of this encounter Visit Diagnoses Not on file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 Assessment Noted Time PHQ-9 Depression Total Score: 4 02/21/20 24 1:54 PM CDT documented as of this encounter Care Teams Lining Finisher Relationship Specialty Start [place] [address] [place] [address] PCP - General Family Medicine 04/22/23 [place] [address] [place] [place] [address] Assigned Pain Medication Provider 12/07/22 [place] [address] [address] [place] [address] Assigned PCP 01/23/23 Kingsley Garcia MD [address] [place] [address] Assigned Heart and Vascular Provider 08/07/23 [place] [address] [address] [place] [address] Family Medicine 09/10/23 Master Shea PA-C [address] [place] [address] Physician Fur Buyer Gastroenterology 09/10/23 Allyssa Justice MD [facility] [address] [place] [address] Hematology & Oncology 12/10/23 Genaro Christian MD [address] [place] [address] 109185 Cardiovascular Disease 12/22/23 Master Shea PA-C [address] [place] [address] Assigned Gastroenterology Provider 12/23/23 Sienna Guillermo DO [address] [place] [address] Physician Cardiovascular Disease 01/18/24 Allyssa Justice MD [facility] [address] [place] 381705 Assigned Cancer Care Provider 03/21/24 Declan Leavitt MD [address] [place] 215025 Assigned Surgical Provider 07/21/24 Ugo Ochoa MD [address] [place] [address] 366515 Assigned Neuroscience Provider 09/20/24 documented as of this encounter
--- OUTSIDE RECORDS SUMMARY | 2024-09-21 22:39 | XMS_ITS | Encounter Summary ---
Author Organization [place] Address [address] [place] [address] Care Team Providers Care Diving Board Assembler Name Role Phone Segundo Mcclelland MD Unavailable [phone] Segundo Mcclelland MD Unavailable [phone] Qamar Jackson MD Unavailable Segundo Mcclelland MD Primary Care Provider + Kingsley Garcia MD Unavailable + [phone] Segundo Mcclelland MD Unavailable [phone] Master Shea PA-C Unavailable Allyssa Justice MD Unavailable [phone] Genaro Christian MD Unavailable [phone] Master Shea PA-C Unavailable Sienna Guillermo DO Unavailable [phone] Allyssa Justice MD Unavailable [phone] Declan Leavitt MD Unavailable Encounter Details Date Type Department Care Team (Latest Contact Info) Description 09/12/2024 Travel Social History Tobacco Use Types Packs/Day [...] in an abandoned building, in an overnight assisted, or couch-surfing.) Yes 08/26/2023 Are you worried [...] AM CDT 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 Gender Identity Female 05/26/2021 10:37 AM CDT [...] Info) Description 02/20/2025 10:20 AM CDT Appointment [facility] [address] [facility] [address] [place] [address] Allyssa Justice MD [facility] [address] [place] [address] [place] [address] 02/27/2025 10:40 AM CDT Virtual Visit [facility] [address] [place] [address] [facility] [place] [phone] Allyssa Justice MD [facility] [address] [place] [address] [place] [address] documented as of this encounter Visit Diagnoses Not on file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 Assessment Noted Time PHQ-9 Depression Total Score: 4 02/21/20 1:54 PM CDT documented as of this encounter Care Teams Diving Board Assembler Relationship Specialty [place] [address] [address] [place] [address] PCP - General Family Medicine 04/22/23 [place] [address] [address] [place] [address] Assigned Pain Medication Provider 12/07/22 [place] [address] [address] [address] Assigned PCP 01/23/23 [place] [address] [place] [address] Assigned Musculoskeletal Provider 01/23/23 09/19/24 Kingsley Garcia MD [address] [place] [address] Assigned Heart and Vascular Provider 08/07/23 [place] [address] [place] [address] Family Medicine 09/10/23 Master Shea PA-C [address] [place] [address] Physician Prison Psychiatrist Gastroenterology 09/10/23 Allyssa Justice MD [facility] [address] [place] [address] [place] [id number] Hematology & Oncology 12/10/23 Genaro Christian MD [address] [place] [address] Cardiovascular Disease 12/22/23 Master Shea PA-C [address] [place] [address] Assigned Gastroenterology Provider 12/23/23 Sienna Guillermo DO [address] [place] 629475 Physician Cardiovascular Disease 01/18/24 Allyssa Justice MD [facility] [address] [place] [address] [place] 725535 Assigned Cancer Care Provider 03/21/24 Declan Leavitt MD [address] [place] [address] [place] [id number] Assigned Surgical Provider 07/21/24 documented as of this encounter
--- OUTSIDE RECORDS SUMMARY | 2024-09-21 22:39 | XMS_ITS | Encounter Summary ---
Author Organization [place] Address [address] [place] [address] Care Team Providers Care Livestock Nutrition Territory Manager Name Role Phone Segundo Mcclelland MD Unavailable [phone] Segundo Mcclelland MD Unavailable [phone] Qamar Jackson MD Unavailable Segundo Mcclelland MD Primary Care Provider + Kingsley Garcia MD Unavailable + [phone] Segundo Mcclelland MD Unavailable [phone] Master Shea PA-C Unavailable Allyssa Justice MD Unavailable [phone] Genaro Christian MD Unavailable [phone] Master Shea PA-C Unavailable Sienna Guillermo DO Unavailable [phone] Allyssa Justice MD Unavailable [phone] Declan Leavitt MD Unavailable Reason for Visit * Reason Onset Date Comments Refill Request 09/13/2024 Encounter Details Date Type Department Care Team (Late st Contact Info) Description 09/13/2024 [facility] [address] [place] [address] [place] [address] [place] [address] Refill Request Social History Tobacco Use Types [...] AM CDT 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 Mcclelland. Routing to provider as FYI. Kait Rao Lead Process Tech [facility] * Telephone Encounter - Donato Argueta, RN - 09/14/2024 11:13 AM CDT Patient calling, had dental procedure 09/12/24. Patient had 2 teeth pulled and a bone graft. Patient was told to ask her Oral surgeon to prescribe hydromorphone rather than other pain medication since she doesn't tolerate it. Patient states oral surgeon said PCP needs to send script, would not prescribe hydromorphone, would only prescribe patient Oxycodone. Patient states oxycodone just makes her throw up, which makes her jaw hurt worse. Please review and advise on patient request for medication. Donato Means RN 09/14/2024 at 11:16 AM documented in this encounter Plan of Treatment Upcoming Encounters Date Type Department Care Team (Late st Contact Info) Description 02/20/2025 10:20 AM CDT Appointment [facility] Imaging [address] [facility] [address] [place] [phone] Allyssa Justice MD [facility] [address] [place] [address] [place] [address] 02/27/2025 10:40 AM CDT Virtual Visit [facility] [address], [place] [address] [facility] [place] [phone] Allyssa Justice MD [facility] [address] [address] [place] [id number] documented as of this encounter Visit Diagnoses Diagnosis Tooth pain Unspecified disorder of the teeth and supporting structures 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 Assessment Noted Time PHQ-9 Depression Total Score: 4 02/21/20 24 1:54 PM CDT documented as of this encounter Care Teams Livestock Nutrition Territory Manager Relationship Specialty Start [place] [address] [address] [address] PCP - General Family Medicine 04/22/23 [place] [address] [address] [address] Assigned Pain Medication Provider 12/07/22 [place] [address] [address] [place] [address] Assigned PCP 01/23/23 [place] [address] [address] [place] [place] [address] Assigned Musculoskeletal Provider 01/23/23 09/19/24 Kingsley Garcia MD [address] [place] [address] Assigned Heart and Vascular Provider 08/07/23 [place] [address] [address] [address] Family Medicine 09/10/23 Master Shea PA-C [address] [facility] [place] [address] Physician Special Education Curriculum Specialist Gastroenterology 09/10/23 Allyssa Justice MD [facility] [address] [place] [address] [place] [address] Hematology & Oncology 12/10/23 Genaro Christian MD [address] [place] [address] Cardiovascular Disease 12/22/23 Master Shea PA-C [address] [place] [address] Assigned Gastroenterology Provider 12/23/23 Sienna Guillermo DO [address] [place] [address] Physician Cardiovascular Disease 01/18/24 Allyssa Justice MD [facility] [address] [place] [address] [place] [address] Assigned Cancer Care Provider 03/21/24 Declan Leavitt MD [address] [place] [address] [place] 827265 Assigned Surgical Provider 07/21/24 documented as of this encounter
--- OUTSIDE RECORDS SUMMARY | 2024-09-21 22:39 | XMS_ITS | Referral Summary ---
Author Organization [facility] Address [address] [place] [address] Care Team Providers Care Web Solutions Architect Name Role Phone Segundo Mcclelland MD Unavailable [phone] Segundo Mcclelland MD Unavailable [phone] Segundo Mcclelland MD Primary Care Provider + Kingsley Garcia MD Unavailable Segundo Mcclelland MD Unavailable [phone] Master Shea PA-C Unavailable Allyssa Justice MD Unavailable [phone] Genaro Christian MD Unavailable Master Shea PA-C Unavailable Sienna Guillermo DO Unavailable [phone] Allyssa Justice MD Unavailable [phone] Declan Leavitt MD Unavailable Ugo Ochoa MD Unavailable Encounters Date Type Department Care Team Description 09/21/2024 Travel 09/21/2024 6:03 PM CDT - 09/21/2024 7:34 PM CDT Emergency [facility] Emergency Dept [address] [place] [address] Lesley Nair MD Nausea, vomiting, and diarrhea Discharge Disposition: Left Without Being Seen 09/20/2024 MyC Medical Advice [facility] [address] [place] [phone] Segundo Mcclelland MD Anemia due to blood loss, acute 09/14/2024 Telephone [facility] [address] [place] [address] Segundo Mcclelland MD 09/13/2024 MyC Refill [facility] [address] [place] [address] Segundo Mcclelland MD Refill Request 09/12/2024 Travel 09/12/2024 9:12 PM CDT - 09/12/2024 10:40 PM CDT Emergency [facility] Emergency Dept [address] [place] [address] Jarrett Burris MD Facial pain; Pain, dental Discharge Disposition: Home or Self Care 09/12/2024 MyC Medical Advice [facility] [address] [place] [phone] Krsytina Bee RN 09/12/2024 Telephone [facility] [address] [place] [address] Segundo Mcclelland MD Refill Request 09/06/2024 Hospital Encounter [facility] [address] [phone] 09/01/2024 Telephone [facility] [address] [place] [address] Segundo Mcclelland MD Forms (Restricted Recipient Specialty Referral- [facility]) 08/30/2024 Telephone [facility] [address] [place] [phone] Segundo Mcclelland MD Patient/info Update 08/30/2024 Hospital Encounter [facility] [place] [address] [place] [phone] Ugo Ochoa MD 08/29/2024 MyC Medical Advice [facility] Neurology [facility] [address] [place] [phone] Ugo Ochoa MD 08/22/2024 MyC Medical Advice [facility] Neurology [facility] [address] [place] [phone] [facility] 08/22/2024 Telephone [facility] Neurology [address] [phone] Ugo Ochoa MD Patient Request ( Neuro/Dr. Ochoa) 08/22/2024 Travel 08/22/2024 PRE VISIT [facility] Neurology [address] [phone] Ugo Ochoa MD *-*INCOMING RECORDS*-* 08/22/2024 1:00 PM CDT Office Visit [address] [phone] Pennie Bernal MD Manske, Jacob, MD Intracranial hypotension (Primary Dx); Episode of transient neurologic symptoms 08/21/2024 Telephone [facility] [address] [place] [address] Segundo Mcclelland MD Referral 08/16/2024 MyC Refill [facility] [address] [place] [address] Segundo Mcclelland MD Refill Request 08/14/2024 Telephone [facility] [address] [place] [address] Segundo Mcclelland MD Physician Communication 08/14/2024 MyC Medical Advice [facility] [address] [place] [phone] Segundo Mcclelland MD Medication Request 08/13/2024 Travel 08/13/2024 9:03 PM CDT - 08/13/2024 11:59 PM CDT Emergency [facility] Emergency Dept [address] [place] [address] Livia Gutierrez MD Dental caries Discharge Disposition: Home or Self Care 08/08/2024 Refill [facility] [address] [place] [phone] Segundo Mcclelland MD Medication Refill 08/03/2024 Telephone [facility] [address] [place] [phone] Segundo Mcclelland MD 08/03/2024 Travel 08/02/2024 10:16 PM CDT - 08/03/2024 3:53 AM CDT Emergency [facility] Emergency Dept [address] [place] [phone] Santhosh Sánchez MD Dental infection Discharge Disposition: Home or Self Care 07/29/2024 Telephone [facility] [address] [place] [phone] Segundo Mcclelland MD Referral 07/20/2024 Telephone [facility] [address] [place] [phone] Segundo Mcclelland MD Orders 07/19/2024 Telephone [facility] Neurology Clinic [address] [phone] None Referral (Neurology referral) 07/18/2024 10:43 PM CDT - 07/19/2024 6:19 AM CDT Emergency [facility] Emergency Department [address] [place] [address] Miguel Puente MD Tschohl, Melissa Ann, MD Altered mental status, unspecified altered mental status type; Bleeding from left ear Discharge Disposition: Home or Self Care 07/18/2024 Travel 07/18/2024 MyC Medical Advice [facility] Vascular Clinic [address] [phone] Kingsley Garcia MD 07/15/2024 10:57 PM CDT - 07/16/2024 2:12 AM CDT Emergency [facility] Emergency Department [address] [place] [phone] Ronnie Multani MD Syncope, unspecified syncope type Discharge Disposition: Home or Self Care 07/15/2024 Travel 07/08/2024 8:51 PM CDT - 07/09/2024 5:22 AM CDT Emergency [facility] Emergency Department [address] [place] [phone] Pennie Bernal MD Acute midline thoracic back pain; Lumbar back pain; Numbness of left hand Discharge Disposition: Home or Self Care 07/08/2024 Travel 07/07/2024 7:36 AM CDT - 07/08/2024 1:54 AM CDT Emergency [facility] Emergency Department [address] [place] [address] Kamryn Moreau DO Cousins, Collin, MD Crosby, Jill C, MD Fall, initial encounter; Numbness; Leg weakness, bilateral Discharge Disposition: Home or Self Care 07/07/2024 7:40 AM CDT Ancillary Procedure [facility] Imaging [address] [place] [address] Kamryn Moreau DO 07/07/2024 Travel 07/05/2024 Travel 07/05/2024 1:05 PM CDT - 07/05/2024 7:25 PM CDT Emergency [facility] Emergency Dept [address] [place] [phone] Livia Gutierrez MD Acute pain of left shoulder; Rib pain on left side; Syncope and collapse; Hypocalcemia Discharge Disposition: Home or Self Care 07/05/2024 Telephone [facility] [address] [place] [phone] Segundo Mcclelland MD 07/03/2024 Travel 07/03/2024 6:00 AM CDT - 07/03/2024 7:30 AM CDT Emergency [facility] Emergency Dept [address] [place] [phone] Bri Hope MD Fall, initial encounter; Hip pain, left; Acute midline low back pain, unspecified whether sciatica present Discharge Disposition: Home or Self Care 06/30/2024 Telephone [facility] Surgery [facility] [address] [place] [phone] Declan Leavitt MD 06/30/2024 MyC Medical Advice [facility] Surgery [facility] [address] [place] [phone] Ashly Donnelly RN 06/29/2024 MyC Medical Advice [facility] [place] [address] [place] [phone] Ashly Donnelly RN 06/29/2024 Telephone [facility] [address] [place] [phone] Declan Leavitt MD Call Back 06/29/2024 Telephone [facility] [address] [place] [phone] Segundo Mcclelland MD 06/29/2024 Telephone [facility] [address] [place] [phone] Declan Leavitt MD Call Back 06/28/2024 MyC Medical Advice [facility] [address] [place] [address] Segundo Mcclelland MD 06/28/2024 Telephone [facility] Interventional Radiology [address] [address] [facility] APRN NUTRITIONAL ASSISTANT 06/28/2024 Travel 06/28/2024 12:21 PM CDT - 06/28/2024 6:13 PM CDT Emergency [facility] Emergency Dept [address] [place] [phone] Luisito Chopra MD Syncope, unspecified syncope type Discharge Disposition: Home or Self Care 06/28/2024 10:30 AM CDT Office Visit [facility] Surgery [place] [address] [place] [phone] Declan Leavitt MD Intractable nausea and vomiting 06/27/2024 Travel 06/27/2024 11:26 AM CDT - 06/27/2024 6:28 PM CDT Emergency [facility] Emergency Dept [address] [place] [phone] Segundo Quick MD Gosen, Christine Leigh, MD Syncope and collapse Discharge Disposition: Home or Self Care 06/26/2024 Telephone [facility] [address] [place] [phone] Segundo Mccellland MD Physician Communication 06/25/2024 Travel 06/25/2024 3:45 PM CDT - 06/25/2024 7:49 PM CDT Emergency [facility] Emergency Dept [address] [place] [phone] Santhosh Sánchez MD Syncope, unspecified syncope type; Facial laceration, initial encounter; Dehydration Discharge Disposition: Home or Self Care 06/23/2024 11:50 PM CDT - 06/24/2024 7:36 AM CDT Emergency [facility] Emergency Dept [address] [place] [phone] Mariela Herbert MD Pain of right upper extremity; Syncope, unspecified syncope type Discharge Disposition: Home or Self Care 06/23/2024 Travel 06/23/2024 MyC Medical Advice [facility] [address] [place] [phone] Segundo Mcclelland MD 06/22/2024 Telephone [facility] Surgery [facility] [address] [place] [phone] Declan Leavitt MD 06/22/2024 Telephone [facility] [address] [place] [address] Segundo Mcclelland MD Patient/info Update from Last 3 Months Allergies Active Allergy [...] Active naloxone (NARCAN) 4 MG/0.1ML nasal spray [place] 4 mg into one nostril alternating [...] needed for other (Wednesday with IV antibiotic) 72210 mL 06/02/20 24 Active Additional Information Patient not taking.Reported on 06/28/2024 sucralfate (CARAFATE) 1 GM tabletIndications :Kathleen-Mustafa tear Take 1 tablet (1 g) by mouth 4 times daily 120 tablet 1 06/09/20 Active Additional Information Patient not taking.Reported on 08/22/2024 folic acid (FOLVITE) 400 MCG tabletIndications :Anemia due to blood loss, acute Take 1 tablet (400 mcg) by mouth daily 90 tablet 1 06/09/20 Active HYDROmorphone (DILAUDID) 4 MG tabletIndications :Tooth [...] ED care plan: Chronic Pain Syndrome: The EPPA Pain Policy applies: No IV/IM Opioids or [...] of care plan. (May 2023-April 2024) Total [facility] ED visits in 12 months prior to initiation of Care Plan: 60 (May 2023-April 2024) Total [facility] Hospital Admissions in 12 months prior to [...] disorder 09/14/2005 Overview (09/05/2023): Overview: LW Onset: 43Vim07 LW Onset: 44Mpk48 ; Borderline Personality Insomnia 09/14/2005 Overview (09/05/2023): Overview: LW Onset: 35Fqe55 LW Onset: 15Cmk36 ; Insomnia NOS Major depressive disorder, single episode 2004 Overview (09/05/2023): Overview: LW Onset: 91Aml93 LW Onset: 88Qes97 ; Depression Major NOS Posttraumatic stress disorder 09/14/2005 Overview (10/29/2023): Overview: LW Onset: 99Kwp31 LW Onset: 61Ayo59 ; Post Traumatic Stress Disorder Prolonged Doing therapy at [facility]. Childhood trauma Dysplasia of cervix 06/29/2005 Overview [...] Due DTaP, Unspecified 02/05/2014 Flu, Unspecified 08/29/2012,08/29/2010 [id number] Novel Flu 09/26/2012 HepB 08/13/2000,07/16/2000 HepB, Unspecified [...] in an abandoned building, in an overnight usp, or couch-surfing.) Yes 08/26/2023 Are you worried [...] AM CDT Legal Sex Female 3:29 AM FILE CLERK Gender Identity Female 05/26/2021 10:37 AM CDT [...] Info) Description 02/20/2025 10:20 AM CDT Appointment [facility] Center Imaging [address] [place] [address] Allyssa Justice MD [facility] [address] [place] [address] [place] [address] 02/27/2025 10:40 AM CDT Virtual Visit [facility] [address] [place], [place] [address] [facility] [place] [address] [phone] Allyssa Justice MD [facility] [address] [place] [address] [place] [address] Medical Devices Implanted Type Area [employer] [place] Device Identifier Shelf Expiration Date Model / Serial / Lot Picc-12/24/2020 Implanted:Qty: 1 on 12/24/2020 by Malia Garrett DO Catheter Right: Arm BARD / / [id number] Explanted Type Area [employer] [place] Device Identifier Shelf Expiration Date Model / Serial / Lot Smart Port-02/04/2024 Implanted:Qty : 1 on 02/04/2024 by Josh Prasad MD Explanted:Qty : 1 on 03/20/2024 by Seth Santillan MD Catheter Right: Chest Wall [employer] [id number] 11/28/2026 / / [id number] Port- 3 Implanted:Qty : 1 on 07/29/2023 by Donavon Quinones MD Explanted:Qty : 1 on 11/12/2023 by Josh Prasad MD Port Left: Chest / / [id number] Description:8 FR power port slim Port- 4 Implanted:Qty : 1 on 03/20/2024 by Seth Santillan MD Explanted:Qty : 1 on 04/07/2024 by Malia Garrett DO Port [employer] [id number] / / [id number] Description:8Fr SmartPort Procedures Procedure Name Priority Date/Time [...] DIRECT LDL PANEL Routine 01/01/2023 11:43 AM FILE CLERK Routine general medical examination at a [facility] MA DIAGNOSTIC BILATERAL W/ AARON Routine 09/02/2018 8:20 AM CDT Lump or mass in breast ACUTE HEPATITIS PANEL Routine 02/13/2016 10:56 AM CDT HIV 1 AND 2 ANTIBODY (QUEST) STAT 11/24/2012 5:50 PM FILE CLERK HCL PAP THIN LAYER DIAGNOSTIC Routine 05/13/2009 12:00 AM CDT Pap Smear Vagina w LGSIL from Last 3 Months or Most Recently Relevant to Health Maintenance Results * (ABNORMAL) Basic metabolic panel (BMP) (09/21/2024 7:01 PM CDT) Only the most recent of5 resultswithin the time period is included. Sodium 138 135 - 145 mmol/L 09/21/2024 7:27 PM CDT [facility] Potassium 4.7 3.4 - 5.3 mmol/L 09/21/2024 7:27 PM CDT [facility] Chloride 103 98 - 107 mmol/L 09/21/2024 7:27 PM CDT [facility] Carbon Dioxide (CO2) 21(L) 22 - 29 mmol/L 09/21/2024 7:27 PM CDT [facility] Anion Gap 14 7 - 15 mmol/L 09/21/2024 7:27 PM CDT [facility] Urea Nitrogen 20.4(H) 6.0 - 20.0 mg/dL 09/21/2024 7:27 PM CDT LABORATORY Creatinine 0.74 0.51 - 0.95 mg/dL 09/21/2024 7:27 PM CDT LABORATORY GFR Estimate >90 >60 mL/min/1.7 3m2 09/21/2024 7:27 PM CDT LABORATORY Comment:eGFR calculated us2020 CKD-EPI equation. Calcium 8.6(L) 8.8 - 10.4 [...] - BLOOD ORDERABLES F inal Result LABORATORY [facility] Acute Care Lab [address] [facility] Lab (1st floor, no room number) [place] [address], [facility] * (ABNORMAL) RBC and Platelet Morphology (08/03/2024 3:05 AM CDT) Only the most recent of2 resultswithin the time period is included. RBC Morphology Confirmed RBC Indices 08/03/2024 3:37 AM CDT LABORATORY Platelet Assessment Automated Count Confirmed. Platelet morphology is normal. Automated Count Confirmed. Platelet morphology is normal. [facility] 08/03/2024 3:37 AM CDT LABORATORY Elliptocytes Slight(A) None Seen [facility] 08/03/2024 3:37 AM CDT LABORATORY Blood STRUCTURE OF RIGHT HAND / Unknown Venipuncture / Unknown 08/03/2024 3:05 AM CDT 08/03/2024 3:07 AM CDT us Santhosh Sánchez MD LAB - BLOOD ORDERABLES Final Result LABORATORY [facility] Acute Care Lab [address] 1[address] floor, Room [address] [place] [address], [place] [phone] * (ABNORMAL) CBC with platelets and differential (08/03/2024 3:05 AM CDT) Only the most recent of8 resultswithin the time period is included. Pathologist [facility] WBC Count 6.6 4.0 - 11.0 10e3/uL [...] LAB - BLOOD ORDERABLES Final Result LABORATORY [facility] Acute Care Lab [address] 1[address] floor, Room [address] [place] [address], [facility] [phone] * Lactic acid whole blood (08/03/2024 3:05 AM CDT) Lactic Acid 0.9 0.7 - 2.0 mmol/L 08/03/2024 3:08 AM CDT LABORATORY Blood STRUCTURE OF RIGHT HAND / Unknown Venipuncture / Unknown 08/03/2024 3:05 AM CDT 08/03/2024 3:07 AM CDT Santhosh Sánchez MD LAB - BLOOD ORDERABLES Final Result Performing Organization Address City/[facility]/ZIP Co de Phone Number LABORATORY [facility] Lab [address] floor, [address] [address], [facility] [phone] * (ABNORMAL) CRP inflammation (08/03/2024 1:48 AM CDT) CRP Inflammation 38.10(H) <5.00 mg/L 08/03/2024 2:11 AM CDT LABORATORY Blood BLOOD SPECIMEN / Unknown Venipuncture / Unknown 08/03/2024 1:48 AM CDT 08/03/2024 1:52 AM CDT Santhosh Sánchez MD LAB - BLOOD ORDERABLES Final Result Performing Organization Address [facility]/ZIP Co de Phone Number LABORATORY [facility] Lab [address] 1st floor, [address], [place] [address], [facility] [phone] * MR Brain w/o & w Contrast [...] MR BRAIN W/O and W CONTRAST LOCATION: [facility] DATE: 07/19/2024 INDICATION: Left-sided weakness and aphasia. [...] MR BRAIN W/O and W CONTRAST LOCATION: [facility] DATE: 07/19/2024 INDICATION: Left-sided weakness and aphasia. [...] hypotension,or recent neurosurgical intervention (including lumbar puncture). us Dean Limon MD IMG MRI ORDERABLES Final Result * -Central Line (07/19/2024 12:49 AM CDT) Narrative Miguel Puente MD - 07/19/2024 12:49 AM CDT Miguel Puente MD ? 07/19/2024 ??1:02 AM [facility] -Central Line Date/Time: 07/19/2024 12:49 AM Performed [...] CONTRAST, CTA HEAD NECK W CONTRAST LOCATION: [facility] DATE/TIME: 07/19/2024 12:10 AM CDT INDICATION: Code [...] aneurysm, or high flow vascular malformation. Standard [place] anatomy. POSTERIOR CIRCULATION: No stenosis/occlusion, [...] CONTRAST, CTA HEAD NECK W CONTRAST LOCATION: [facility] DATE/TIME: 07/19/2024 12:10 AM CDT INDICATION: Code [...] stenosis/occlusion, aneurysm, or high flowvascular malformation. Standard [place] anatomy. POSTERIOR CIRCULATION: No stenosis/occlusion, [...] CDT with thepreliminary report. Miguel Puente MD [facility] CT ORDERABLES Final Result * CT Head [...] CONTRAST, CTA HEAD NECK W CONTRAST LOCATION: [facility] DATE/TIME: 07/19/2024 12:10 AM CDT INDICATION: Code [...] aneurysm, or high flow vascular malformation. Standard [place] anatomy. POSTERIOR CIRCULATION: No stenosis/occlusion, [...] CONTRAST, CTA HEAD NECK W CONTRAST LOCATION: [facility] DATE/TIME: 07/19/2024 12:10 AM CDT INDICATION: Code [...] stenosis/occlusion, aneurysm, or high flowvascular malformation. Standard [place] anatomy. POSTERIOR CIRCULATION: No stenosis/occlusion, [...] CDT with thepreliminary report. Miguel Puente MD IMG CT ORDERABLES Final Result * hCG Qualitative (07/19/2024 12:01 AM CDT) Only the most recent of2 resultswithin the time period is included. hCG Serum Qualitative Negative Negative [facility] 07/19/2024 12:20 AM CDT [facility] Comment:This test is for scr eening purposes. Results should be interpreted along with the clinical picture. Confirmation testing is available if warranted by ordering [id number], HCG Quantitative . Blood BLOOD SPECIMEN / Unknown Venipuncture / Unknown 07/19/2024 12:01 AM CDT 07/19/2024 12:07 AM CDT Miguel Puente MD LAB - BLOOD ORDERABLES F inal Result [facility] Acute Care Lab [address] [facility], [address] [place] [address] * Extra Purple Top Tube (07/18/2024 11:59 PM CDT) Only the most recent of2 resultswithin the time period is included. Hold Specimen JIC 07/19/2024 1:16 AM CDT [facility] Blood BLOOD SPECIMEN / Unknown Venipuncture / Unknown 07/18/2024 11:59 PM CDT 07/19/2024 12:10 AM CDT Miguel Puente MD LAB - BLOOD ORDERABLES F inal Result Performing Organization Address City/[facility]/ZIP Co de Phone Number [facility] Acute Care Lab [address] [facility], [address] * Extra Green Top (Marvin Heparin) Tube (07/18/2024 11:59 PM CDT) Only the most recent of2 resultswithin the time period is included. Hold Specimen JIC 07/19/2024 1:16 AM CDT [facility] Blood BLOOD SPECIMEN / Unknown Venipuncture / Unknown 07/18/2024 11:59 PM CDT 07/19/2024 12:10 AM CDT Miguel Puente MD LAB - BLOOD ORDERABLES F inal Result Performing Organization Address [facility]/ZIP Co de Phone Number UR [facility] Acute Care Lab [address] [place] [address], [address] * INR (07/18/2024 11:59 PM CDT) INR 1.07 0.85 - 1.15 07/19/2024 12:17 AM CDT [facility] Blood BLOOD SPECIMEN / Unknown Venipuncture / Unknown 07/18/2024 11:59 PM CDT 07/19/2024 12:07 AM CDT Miguel Puente MD LAB - BLOOD ORDERABLES F inal Result UR LABORATORY [facility] Acute Care Lab [address] [facility], Room [place] [id number] * Partial thromboplastin time (07/18/2024 11:59 PM CDT) aPTT 27 22 - 38 Seconds 07/19/2024 12:18 AM CDT [facility] Blood BLOOD SPECIMEN / Unknown Venipuncture / Unknown 07/18/2024 11:59 PM CDT 07/19/2024 12:07 AM CDT Miguel Puente MD LAB - BLOOD ORDERABLES F inal Result UR [facility] Acute Care Lab [address] [facility], Room [place] [phone] * Troponin T, High Sensitivity (07/18/2024 11:21 [...] BLOOD ORDERABLES F inal Result [facility] Acute Care Lab [address] [facility], [address] [phone] * (ABNORMAL) Glucose by meter (07/18/2024 10:45 PM CDT) GLUCOSE BY METER POCT 112(H) 70 - 99 mg/dL 07/18/2024 10:52 PM CDT [facility] POC Blood, Capillary BLOOD SPECIMEN / Unknown 07/18/2024 10:45 PM CDT 07/18/2024 10:52 PM CDT us Miguel Puente MD LAB - BEAKER POCT Final Result [facility] POC [facility] Acute Care Lab [address] [facility], [address] [place] [address], [facility] * (ABNORMAL) Comprehensive metabolic panel (07/16/2024 12:29 [...] 12:29 AM CDT 07/16/2024 12:45 AM CDT us Ronnie Multani MD LAB - BLOOD ORDERABLES F inal Result [facility] Acute Care Lab [address] [facility], [address] [place] [address] * XR Cervical Spine 2/3 Views (07/15/2024 11:52 PM CDT) Anatomical Region Laterality Modality Spine Computed Radiogr aphy 07/15/2024 11:5 2 PM CDT Impressions 07/15/2024 11:56 PM CDT IMPRESSION: No prevertebral soft tissue swelling. Normal vertebral heights and alignment. Normal disc spaces and facets for age. Normal extraspinal structures. Narrative 07/15/2024 11:56 PM CDT EXAM: XR CERVICAL SPINE 2/3 VIEWS LOCATION: [facility] DATE: 07/15/2024 INDICATION: Trauma. COMPARISON: None. Procedure Note Sg House MD - 07/15/2024 EXAM: XR CERVICAL SPINE 2/3 VIEWS LOCATION: [facility] DATE: 07/15/2024 INDICATION: Trauma. COMPARISON: None. IMPRESSION: [...] Atrial Rate 94 BPM RADIOLOG Y RESULTS AL Interval 180 ms RADIOLOG Y RESULTS QRS Duration 80 ms RADIOLO GY RESULTS QT 358 ms RADIOLOGY RESULTS QTc 447 ms RADIOLOGY RESULTS P Adel 31 degrees RADIOLOGY RESULTS R AXIS 19 degrees RADIOLOGY RESULTS T Adel 19 degrees RADIOLOGY RESULTS Interpretation ECG Sinus rhythm Cannot rule out Anterior infarct , age undetermined Abnormal ECG Unconfirmed report - interpretation of this ECG is computer generated - see medical record for final interpretation Confirmed by - EMERGENCY ROOM, PHYSICIAN ([id number]), editor farm journal MICHAEL GARZA ([id number]) on 07/16/2024 9:20:21 AM RADIOLOGY RESULTS 07/15/2024 10:5 6 PM CDT 07/16/2024 9:20 AM CDT Ronnie Multani MD ECG ORDERABLES Edited R esult - Final RADIOLOGY RESULTS * Thoracic spine MRI w/o contrast (07/09/2024 4:33 AM CDT) Anatomical Region Laterality Modality Spine, SUBRAD MR NEURO, UMP MR SPINE, RAD MR Magnetic Resonance 07/09/2024 4:33 AM CDT Impressions 07/09/2024 4:47 AM CDT IMPRESSION: 1. ??Unremarkable MRI thoracic spine. Narrative 07/09/2024 4:47 AM CDT EXAM: MR THORACIC SPINE W/O CONTRAST LOCATION: [facility] DATE: 07/09/2024 INDICATION: thoracic back pain, left sided numbness COMPARISON: Thoracic spine CT on the same date TECHNIQUE: Routine Thoracic Spine MRI without IV contrast. FINDINGS: Normal vertebral body heights, alignment and marrow signal. Normal disc heights. No herniation. Normal facets. No spinal canal or neural foraminal stenosis. No abnormal cord signal. No extraspinal abnormality. Procedure Note Aston Cowan MD - 07/09/2024 EXAM: MR THORACIC SPINE W/O CONTRAST LOCATION: [facility] DATE: 07/09/2024 INDICATION: thoracic back pain, left [...] EXAM: MR CERVICAL SPINE W/O CONTRAST LOCATION: [facility] DATE: 07/09/2024 INDICATION: left hand numbness, fall [...] EXAM: MR CERVICAL SPINE W/O CONTRAST LOCATION: [facility] DATE: 07/09/2024 INDICATION: left hand numbness, fall [...] the usual cervical lordosis. 2. Otherwise unremarkable. us Pennie Bernal MD IMG MRI ORDERABLES Final Result * CT Thoracic [...] CONTRAST, CT THORACIC SPINE W/O CONTRAST LOCATION: [facility] DATE: 07/09/2024 INDICATION: left hand numbness, fall [...] CONTRAST, CT THORACIC SPINE W/O CONTRAST LOCATION: [facility] DATE: 07/09/2024 INDICATION: left hand numbness, fall [...] or neural foraminal stenosis. Pennie Bernal MD IMG CT ORDERABLES Final [...] CONTRAST, CT THORACIC SPINE W/O CONTRAST LOCATION: [facility] DATE: 07/09/2024 INDICATION: left hand numbness, fall [...] CONTRAST, CT THORACIC SPINE W/O CONTRAST LOCATION: [facility] DATE: 07/09/2024 INDICATION: left hand numbness, fall [...] or neural foraminal stenosis. Pennie Bernal MD IMG CT ORDERABLES Final R esult * (ABNORMAL) Hepatic panel (07/09/2024 1:22 AM CDT) Only the most recent of2 resultswithin the time period is included. Pathologist [facility] Protein Total 7.0 6.4 - 8.3 g/dL [...] BLOOD ORDERABLES Fi nal Result UR LABORATORY [facility] [address], [address] [place] [address], [facility] * MR Lumbar Spine w/o Contrast (07/07/2024 [...] disease L5-S1. Narrative 07/07/2024 11:15 PM CDT [facility] MR LUMBAR SPINE W/O CONTRAST 07/07/2024 10:46 [...] Procedure Note Pratik Ruggiero MD - 07/07/2024 [facility] MR LUMBAR SPINE W/O CONTRAST 07/07/2024 10:46 [...] Moderate degenerative disc disease L5-S1. us Judson CRAIG MRI ORDERABLES Final Resul t * US Abdomen Complete (07/07/2024 9:48 PM CDT) Anatomical Region Laterality Modality Abdomen/Pelvis Ultrasound Impressions 07/08/2024 10:02 AM CDT IMPRESSION: ??Hepatomegaly. No focal liver lesion demonstrated. Finding of hepatomegaly discussed with ER provided by Yg at 10:00 AM 07/08/2024 10:02 AM I have personally reviewed the examination and initial interpretation and I agree with the findings. EARLENE WINN MD Narrative 07/08/2024 10:02 AM CDT EXAMINATION: [...] ascites or pleural effusions. Procedure Note Earlene Winn MD - 07/08/2024 EXAMINATION: US ABDOMEN COMPLETE, [...] and I agree with the findings. EARLENE WINN MD us Judsonsamra Peralta MD IMG US ORDERABLES Final Result * CT [...] hr when >2 (07/07/2024 9:17 AM CDT) Pathologist [facility] Lactic Acid, Initial 1.2 0.7 - 2.0 mmol/L 07/07/2024 9:27 AM CDT [facility] Blood BLOOD SPECIMEN / Unknown Venipuncture / Unknown 07/07/2024 9:17 AM CDT 07/07/2024 9:25 AM CDT Kamryn Moreau DO LAB - BLOOD ORDERABLES Final Res ult [facility] [address] [facility], [address] [place] [address] * (ABNORMAL) Phosphorus (07/07/2024 9:17 AM CDT) Phosphorus 4.9(H) 2.5 - 4.5 mg/dL 07/07/2024 9:55 AM CDT [facility] Blood BLOOD SPECIMEN / Unknown Venipuncture / Unknown 07/07/2024 9:17 AM CDT 07/07/2024 9:25 AM CDT Kamryn Moreau DO LAB - BLOOD ORDERABLES Final Res ult LABORATORY [facility] [address] [facility], [address] * Magnesium (07/07/2024 9:17 AM CDT) Only the most recent of2 resultswithin the time period is included. Magnesium 2.2 1.7 - 2.3 mg/dL 07/07/2024 9:55 AM CDT [facility] Blood BLOOD SPECIMEN / Unknown Venipuncture / Unknown 07/07/2024 9:17 AM CDT 07/07/2024 9:25 AM CDT Kamryn Moreau DO LAB - BLOOD ORDERABLES Final Res ult Performing Organization Address City/[facility] de Phone Number LABORATORY [facility] [address] [facility], [address] * HCG quantitative (07/07/2024 9:17 AM CDT) hCG Quantitative <1 <5 mIU/mL 07/07/20 11:44 AM CDT [facility] Comment: Adult: 0-5 mIU/mL for healthy non- person Neonates: Should be within normal ranges by 2 days after Blood BLOOD SPECIMEN / Unknown Venipuncture / Unknown 07/07/2024 9:17 AM CDT 07/07/2024 9:25 AM CDT Kamryn Moreau DO LAB - BLOOD ORDERABLES Final Res ult LABORATORY [facility] [place] [facility] [address] [facility], [address] [place], [place] [id number] * (ABNORMAL) CK total (07/07/2024 9:17 AM CDT) CK 24(L) 26 - 192 U/L 07/07/2024 9:55 AM CDT [facility] Blood BLOOD SPECIMEN / Unknown Venipuncture / Unknown 07/07/2024 9:17 AM CDT 07/07/2024 9:25 AM CDT us Kamryn Moreau DO LAB - BLOOD ORDERABLES Final Res ult U LABORATORY [facility] [address] [facility], [address] [phone] * XR Knee Port Right G/E 4 Views (07/07/2024 8:41 AM CDT) Anatomical Region Laterality Modality Knee, Right Knee Right Computed Radiog shilpi Impressions 07/07/2024 8:59 AM CDT Impression: 1. No acute osseous abnormality. 2. No substantial degenerative change. [place] PATRICIO Narrative 07/07/2024 8:59 AM CDT 2 views [...] 2. No substantial degenerative change. [place] PATRICIO [facility] DO [facility] DIAGNOSTIC IMAGING ORDERABLE S Final Result * [...] fluid within the pericardium. Kamryn Moreau DO [facility] POCUS Final Result * XR Shoulder Left G/E 3 Views (07/05/2024 6:39 PM CDT) Anatomical Region Laterality Modality Shoulder, Left Shoulder Left Digital Radiography 07/05/2024 6:39 PM CDT Impressions 07/05/2024 7:00 PM CDT IMPRESSION: No acute fracture or malalignment. There is normal joint spacing. Narrative 07/05/2024 7:00 PM CDT EXAM: XR SHOULDER LEFT G/E 3 VIEWS LOCATION: [facility] DATE: 07/05/2024 INDICATION: Left shoulder pain COMPARISON: None. Procedure Note Josh Pate MD - 07/05/2024 EXAM: XR SHOULDER LEFT G/E 3 VIEWS LOCATION: [facility] DATE: 07/05/2024 INDICATION: Left shoulder pain COMPARISON: None. IMPRESSION: No acute fracture or malalignment. There is normal jointspacing. Livia Gutierrez MD IMG DIAGNOSTIC IMAGING O RDERABLES Final Result * Extra Blue Top Tube (06/28/2024 2:27 PM CDT) Hold Specimen JIC 06/28/2024 3:31 PM CDT LABORATORY Blood BLOOD SPECIMEN / Unknown Venipuncture / Unknown 06/28/2024 2:27 PM CDT 06/28/2024 2:30 PM CDT Result [facility] Luisito Chopra MD LAB - BLOOD ORDERABLES Lalita l Result LABORATORY [facility] Lab [address] [place] [address], [facility] [phone] * Lipase (06/28/2024 2:27 PM CDT) Lipase 58 13 - 60 U/L 06/28/2024 3:06 PM CDT LABORATORY Blood BLOOD SPECIMEN / Unknown Venipuncture / Unknown 06/28/2024 2:27 PM CDT 06/28/2024 2:30 PM CDT Luisito Chopra MD LAB - BLOOD ORDERABLES Lalita l Result [facility] [address], [address] [place] [address], [facility] [phone] * CT Chest Pulmonary Embolism w Contrast [...] CT CHEST PULMONARY EMBOLISM W CONTRAST LOCATION: [facility] DATE: 06/27/2024 INDICATION: Tachycardic, elevated dimer COMPARISON: [...] CT CHEST PULMONARY EMBOLISM W CONTRAST LOCATION: [facility] DATE: 06/27/2024 INDICATION: Tachycardic, elevated dimer COMPARISON: [...] PET/CT, or tissue sampling at 3 months. us Sam Botello PA-C IMOzzy CT ORDERABLES Final Resul t * CT Facial Bones without Contrast (06/27/2024 5:08 PM CDT) Anatomical Region Laterality Modality Head, SUBRAD CT NEURO, UMP CT NEURO, RAD CT Computed Tomography 06/27/2024 5:08 PM CDT Narrative 06/27/2024 5:26 PM CDT EXAM: CT HEAD W/O CONTRAST, CT FACIAL BONES WITHOUT CONTRAST, CT CERVICAL SPINE W/O CONTRAST LOCATION: [facility] DATE: 06/27/2024 INDICATION: Fall with headache, loss [...] WITHOUT CONTRAST, CT CERVICALSPINE W/O CONTRAST LOCATION: [facility] DATE: 06/27/2024 INDICATION: Fall with headache, loss [...] or neural foraminal stenosis. Sam Botello PA-C IMG CT ORDERABLES Final Resul t * Adult Type and Screen (06/27/2024 3:52 PM CDT) Pathologist [facility] ABO/RH(D) O POS 06/27/2024 3:31 PM CDT BLOOD BANK Antibody Screen Negative Negative 06/27/2024 3:31 PM CDT BLOOD BANK SPECIMEN EXPIRATION DATE [id number] 06/27/2024 3:31 PM CDT BLOOD BANK Blood BLOOD SPECIMEN / Unknown Venipuncture / Unknown 06/27/2024 3:52 PM CDT 06/27/2024 3:59 PM CDT Sam Botello PA-C LAB - BLOOD BANK TEST ORDER F inal Result BLOOD BANK [address] [place] [address], [facility] * (ABNORMAL) D dimer quantitative (06/27/2024 3:52 [...] PA-C LAB - BLOOD ORDERABLES Final Result LABORATORY [facility] [address], [address] [place] [address], [facility] [phone] * Manual Differential (06/25/2024 5:00 PM CDT) [...] Count Confirmed. Platelet morphology is normal. [place] 06/25/2024 5:37 PM CDT LABORATORY Blood BLOOD SPECIMEN / Unknown Venipuncture / Unknown 06/25/2024 5:00 PM CDT 06/25/2024 5:06 PM CDT us Santhosh Sánchez MD LAB - BLOOD ORDERABLES Final Result LABORATORY [facility] [address], [address] [place] [address], [facility] [phone] * Radius/Ulna XR, PA & LAT, right (06/24/2024 12:42 AM CDT) Anatomical Region Laterality Modality Forearm, Right Forearm Right Digital R adiography 06/24/2024 12:4 2 AM CDT Impressions 06/24/2024 1:00 AM CDT IMPRESSION: Within normal limits. No fracture. Narrative 06/24/2024 1:00 AM CDT EXAM: XR FOREARM RIGHT 2 VIEWS LOCATION: [facility] DATE: 06/24/2024 INDICATION: Arm pain COMPARISON: None. Procedure Note Genaro Sandoval MD - 06/24/2024 EXAM: XR FOREARM RIGHT 2 VIEWS LOCATION: [facility] DATE: 06/24/2024 INDICATION: Arm pain COMPARISON: None. IMPRESSION: Within normal limits. No fracture. us Mariela Herbert MD IMG DIAGNOSTIC IMAGING ORDERAB LES Final Result * (ABNORMAL) Lipid panel reflex to direct LDL Fasting (01/01/2023 11:43 AM FILE CLERK) Cholesterol 294(H) <200 mg/dL 01/01/2023 9:16 PM FILE CLERK [facility] Triglycerides 196(H) <150 mg/dL 01/01/2023 9:16 PM FILE CLERK [facility] Direct Measure HDL 58 >=50 mg/dL 01/01/2023 9:16 PM FILE CLERK [facility] LDL Cholesterol Calculated 197(H) <=100 mg/dL 01/01/2023 9:16 PM FILE CLERK [facility] Non HDL Cholesterol 236(H) <130 mg/dL 01/01/2023 9:16 PM FILE CLERK [facility] Blood BLOOD SPECIMEN / Unknown Capillary / Unknown 01/01/2023 11:43 AM FILE CLERK 01/01/2023 11:57 AM FILE CLERK Narrative [facility] - 01/01/2023 9:16 PM FILE CLERK Cholesterol Desirable: ??<200 mg/dL Triglycerides Normal: ??Less [...] ??Greater than or equal to 220 mg/dL us Segundo Mcclelland MD LAB - BLOOD ORDERABLES F inal Result [facility] [address] [facility], [address] [address], [facility] [phone] * MA Diagnostic Bilateral w/Aaron (09/02/2018 8:20 [...] IgM Negative Negative 02/14/2016 9:22 AM CDT [facility] Hepatitis B Core Antibody IgM Negative Negative 02/14/2016 9:22 AM CDT [facility] Hepatitis B Surface Antigen Negative Negative 02/14/2016 9:22 AM CDT [facility] Hepatitis C Antibody Negative Negative 02/14/2016 9:22 AM CDT [facility] Blood specimen (specimen) 02/13/2016 10:56 AM CDT 02/13/2016 11:01 AM CDT Meg Lee MD LAB - BLOOD ORDERABLES Final Res ult [facility] [address] [place] [address], [facility] [address] [place] [address] * HIV 1 and 2 Antibody (11/24/2012 5:50 PM FILE CLERK) HIV 1&[address] [facility] Blood specimen (specimen) 11/24/2012 5:50 PM FILE CLERK 11/24/2012 7:53 PM FILE CLERK us Crissy Duncan MD LAB - BLOOD ORDERABLES Fin al Result [address] [address] * (ABNORMAL) A THIN LAYER, DIAGNOSTIC PAP (05/13/2009 12:00 AM CDT) PAP LSIL(A) COPATH Copyves Report Patient Name: IVELISSE CONTRERAS MR#: [id number] Specimen #: [id number] Collected: 05/13/2009 Received: 05/14/2009 Reported: 05/16/2009 15:27 Ordering Phy(s): FLOYD RODGERS SPECIMEN/STAIN PROCESS: A: Pap thin layer prep [...] Virgilio Rocha M.D. 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 05/26/2024 Insurance [facility] Advance Directives For more information, please contact: [phone] * Full Code (Latest Code Status on [...] patie nt/ legal decision maker Care Teams Web Solutions Architect Relationship Specialty [place] [address] [address] [address] PCP - General Family Medicine 04/22/23 [place] [address] [address] [address] Assigned Pain Medication Provider 12/07/22 [place] [address] [address] [address] Assigned PCP 01/23/23 Kingsley Garcia MD [address] [place] [id number] Assigned Heart and Vascular Provider 08/07/23 [place] [address] [place] [address] Family Medicine 09/10/23 Master Shea PA-C [address] [place] [address] Physician Marketing Producer Gastroenterology 09/10/23 Allyssa Justice MD [facility] [address] [place] [id number] Hematology & Oncology 12/10/23 Genaro Christian MD [address] [place] [address] [id number] Cardiovascular Disease 12/22/23 Master Shea PA-C [address] [place] [address] Assigned Gastroenterology Provider 12/23/23 Sienna Guillermo DO [address] [place] [id number] Physician Cardiovascular Disease 01/18/24 Allyssa Justice MD [facility] [address] [place] [id number] Assigned Cancer Care Provider 03/21/24 Declan Leavitt MD [address] [facility] [address] [place] [id number] Assigned Surgical Provider 07/21/24 Ugo Ochoa MD [address] [place], [place] [address] Assigned Neuroscience Provider 09/20/24
--- OUTSIDE RECORDS SUMMARY | 2024-09-21 22:39 | XMS_ITS | Encounter Summary ---
Author Organization [place] Address [address] [place] [address] Care Team Providers Care Satellite Tv Installer Name Role Phone Segundo Mcclelland MD Unavailable [phone] Segundo Mcclelland MD Unavailable [phone] Qamar Jackson MD Unavailable Segundo Mcclelland MD Primary Care Provider + Kingsley Garcia MD Unavailable Segundo Mcclelland MD Unavailable [phone] Master Shea PA-C Unavailable Allyssa Justice MD Unavailable [phone] Genaro Christian MD Unavailable [phone] Master Shea PA-C Unavailable Sienna Guillermo DO Unavailable [phone] Allyssa Justice MD Unavailable [phone] Declan Leavitt MD Unavailable Reason for Visit * Reason Comments Dental Pain Encounter Details Date Type Department Care Team (Late st Contact Info) Description 09/12/2024 9:12 PM CDT - 09/12/2024 10:40 PM CDT [facility] Emergency Dept [address] [place] [address] Jarrett Burris MD [facility] [address] [place] [address] Facial pain; Pain, dental Discharge Disposition: Home or Self Care Social [...] in an abandoned building, in an overnight alf, or couch-surfing.) Yes 08/26/2023 Are you worried [...] AM CDT 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 Gender Identity Female 05/26/2021 10:37 AM CDT Sexual Orientation Straight 05/26/2021 10 :37 AM CDT Occupation Industry Job Start Date Job End Date unemployed Not on file Not on file Not on file Not on file Not on file Not on file Not on file documented as of this encounter Last Filed Vital Signs Vital Sign Reading Time Taken Comments Blood Pressure 113/49 09/12/2024 10:40 PM CDT Pulse 110 09/12/2024 10:40 PM CDT Temperature 36.7 ??C (98.1 ??F) 09/12/2024 8:16 PM CD T Respiratory Rate 18 09/12/2024 10:4 0 PM CDT Oxygen Saturation 99% 09/12/2024 10: 40 PM CDT Inhaled Oxygen Concentration - - Weight 116.9 kg (257 lb 11.5 oz) 09/12/2024 8:16 PM CDT Height 167.6 cm (5' 6) 09/12/2024 8:16 PM CDT Body Mass Index 41.6 09/12/2024 8:16 PM CDT documented in this encounter Discharge Instructions * Discharge Instructions* Jarrett Burris MD - 09/12/2024 10:12 PM CDT Discharge Instructions Dental Pain You have been seen today for a toothache. Your pain may be caused by an exposed nerve, an infection(pulpitis), a root abscess (pocket of pus), or other problems. You will need to see a dentist for asolution to your tooth problem. Emergency Department care is only to help control your problem until you can see a dentist; we cannot provide complete dental care. Today, we did not find any sign that your toothache was caused by any dangerous or life-threatening condition, but sometimes symptoms develop over time and cannot be found during an emergency visit, so it is very important that you follow up with your dentist. Generally, every Emergency Department visit should have a follow-up clinic visit with either a primary or a specialty clinic/provider. Please follow-up as instructed by your emergency provider today. Return to the Emergency Department if: You develop a new fever over 100.4??F. You cannot open your mouth normally, cannot move your tongue well, or cannot swallow. You have new or increased swelling of your face or neck. You develop drainage of pus or foul smelling material from around your tooth. What can I do to help myself? Take any antibiotic the provider may have prescribed for you today. Avoid very hot or very cold foods as both can cause pain. Make an appointment to see a dentist as soon as possible. Dentists are generally not ???on-staff?? at hospitals so we cannot ???refer?? to you to dentist but we may be able to provide a list of dental clinics to help you. If you were given a prescription for [...] this encounter Medications at Time of Discharge apixaban ANTICOAGULANT (ELIQUIS) 5 MG tabletIndications: DVT-PE Prophylaxis Take 1 tablet (5 mg) by mouth 2 times daily 180 tablet 1 05/11/2024 childrens multivitamin w/iron (FLINTSTONES COMPLETE) chewable tablet Take 1 chew tab by mouth daily diphenhydrAMINE (BENADRYL) 50 MG/ML injectionIndicatio ns:Gastroparesis Inject 0.5 mLs (25 mg) into the vein every 6 hours as needed for other 30 mL 1 06/02/2024 EPINEPHrine (ANY BX GENERIC EQUIV) 0.3 MG/0.3ML injection 2-pack Inject 0.3 mLs (0.3 mg) into the muscle once as needed for anaphylaxis 1 each 04/17/2021 fluconazole (DIFLUCAN) 200 MG tabletIndications: Osteomyelitis, unspecified site, unspecified type (H) Take 1 tablet (200 mg) by mouth three times a week 18 tablet 04/12/2024 folic acid (FOLVITE) 400 MCG tabletIndications: Anemia due to blood loss, acute Take 1 tablet (400 mcg) by mouth daily 90 tablet 1 06/09/2024 gabapentin (NEURONTIN) 800 MG tablet Take 1,200 mg by mouth 3 times daily. LORazepam (ATIVAN) 1 MG tablet Take 1 mg by mouth every 6 hours as needed for anxiety naloxone (NARCAN) 4 MG/0.1ML nasal spray [place] 4 mg into one nostril alternating nostrils once as needed for opioid reversal 06/28/2023 pantoprazole (PROTONIX) 40 MG EC tablet Take 40 mg by mouth daily sodium chloride 0.9% infusionIndication s:Gastroparesis Inject 1,000 mLs into the vein as needed for other (Wednesday with IV antibiotic) 39733 mL 06/02/2024 sucralfate (CARAFATE) 1 GM tabletIndications: Kathleen-Mustafa tear Take 1 tablet (1 g) by mouth 4 times daily 120 tablet 1 06/09/2024 zolpidem (AMBIEN) 10 MG tablet Take 10 mg by mouth At Bedtime 12/17/2022 FE-JOSE ALBERTO IRON 75 (15 Fe) MG/ML oral dropsIndications:A nemia due to blood loss, acute TAKE 5 MLS (75 MG) BY MOUTH DAILY 50 mL 1 08/08/2024 4 HYDROmorphone (DILAUDID) 4 MG tabletIndications: Tooth pain Take 1 tablet (4 mg) by mouth every 6 hours as needed for severe pain. 10 tablet 08/18/2024 4 documented as of this encounter ED Notes * Jarrett Burris MD - 09/12/2024 10:40 PM CDT Emergency Department Note History of Present Illness Chief Complaint Dental Pain HPI Sandi Lopez is a 38 year old female presents with dental pain. Patient reports she had a dental procedure with dental extraction and bone graft to her right upper molars. Pain has been present since that time. She has been on oxycodone but this will induce vomiting. She called her primary care physician as well as her oral surgeon to discuss transitioning to Dilaudid. She saw her oral surgeon today who declined change to Dilaudid. She presents due to persistent pain. She has no associated fevers or additional areas of pain at this time Independent Historian None Review of External Notes None Past Medical History Medical History and Problem List Past Medical History: Diagnosis Date Abnormal Pap smear Allergic rhinitis Anemia 2011 Atrial flutter Borderline personality disorder Continuous opioid dependence Depressive disorder Drug-seeking behavior and Malingering Dysthymic disorder Eating disorder Fertility problem 2010 Gastro-oesophageal reflux disease Gastroparesis H/o Seizure as child History of blood transfusion Hypertension 05/08/23 Intermittent asthma Kidney stone Kathleen-Mustafa tear Mild persistent asthma Obesity Osteomyelitis of lumbar spine 2023 PICC (peripherally inserted central catheter) in place 04/11/2024 Postural orthostatic tachycardia syndrome 2004 Psychogenic nonepileptic seizure PTSD (post-traumatic stress disorder) Pulmonary embolism 04/24/2014 Medications apixaban ANTICOAGULANT (ELIQUIS) 5 MG tablet childrens multivitamin w/iron (FLINTSTONES COMPLETE) chewable tablet diphenhydrAMINE (BENADRYL) 50 MG/ML injection EPINEPHrine (ANY BX GENERIC EQUIV) 0.3 MG/0.3ML injection 2-pack FE-JOSE ALBERTO IRON 75 (15 Fe) MG/ML oral drops fluconazole (DIFLUCAN) 200 MG tablet folic acid (FOLVITE) 400 MCG tablet gabapentin (NEURONTIN) 800 MG tablet HYDROmorphone (DILAUDID) 4 MG tablet LORazepam (ATIVAN) 1 MG tablet naloxone (NARCAN) 4 MG/0.1ML nasal spray pantoprazole (PROTONIX) 40 MG EC tablet sodium chloride 0.9% infusion sucralfate (CARAFATE) 1 GM tablet zolpidem (AMBIEN) 10 MG tablet Surgical History Past Surgical History: Procedure Laterality Date ADENOIDECTOMY [...] Procedure: ESOPHAGOGASTRODUODENOSCOPY; Surgeon: Meg Lee MD; Location: [facility] OR; Service: ESOPHAGOSCOPY, GASTROSCOPY, DUODENOSCOPY (EGD), COMBINED N/A 05/05/2023 Procedure: ESOPHAGOGASTRODUODENOSCOPY; Surgeon: Manpreet Lorenzo MD; Location: OR ESOPHAGOSCOPY, GASTROSCOPY, DUODENOSCOPY (EGD), COMBINED N/A 06/11/2023 Procedure: Esophagogastroduodenoscopy; Surgeon: Manpreet Lorenzo MD; Location: OR ESOPHAGOSCOPY, GASTROSCOPY, DUODENOSCOPY (EGD), COMBINED N/A 12/07/2023 Procedure: Esophagoscopy, gastroscopy, duodenoscopy (EGD), combined; Surgeon: Akbar Alvares MD; Location: GI HYSTERECTOMY VAGINAL 12/2017 INSERT MIDLINE HE 02/13/2016 INSERT PICC LINE N/A 04/11/2024 Procedure: Insert picc line; Surgeon: Malia Garrett DO; Location: OR. DO NOT REMOVE WITHOUT IR CONSULT IR BONE BIOPSY VERTEBRAL 03/15/2024 IR CHEST PORT PLACEMENT > 5 YRS OF AGE 0807/29/2023 IR CHEST PORT PLACEMENT > 5 YRS OF AGE 0302/04/2024 IR LUMBAR PUNCTURE 12/08/2012 IR PICC PLACEMENT > 5 YRS OF AGE 0112/24/2020 IR PICC PLACEMENT > 5 YRS OF AGE 0706/25/2020 IR PICC PLACEMENT > 5 YRS OF AGE 0908/18/2016 IR PICC PLACEMENT > 5 YRS OF AGE 0504/11/2024 DO NOT REMOVE UNDER ANY CIRCUMSTANCES WTITHOUT CONSULTING WITH IR IR PICC PLACEMENT > 5 YRS OF AGE 605/18/2024 IR PORT CHECK RIGHT 03/20/2024 IR PORT REMOVAL LEFT 11/12/2023 IR PORT REMOVAL RIGHT 04/07/2024 IRRIGATION AND DEBRIDEMENT FOOT, COMBINED Right 2023 Procedure: Right heel debridement; Surgeon: Farrah Nguyen DPM; Location: OR LARYNGOSCOPY N/A 02/14/2016 Procedure: DIRECT LARYNGOSCOPY, UPPER ESOPHAGOSCOPY, NASAL ESOPHAGOSCOPY, CONTROLLED EPITAXIS; Surgeon: Declan Mata MD; Location: [facility]; Service: OOPHORECTOMY Right REMOVE PORT VASCULAR ACCESS N/A 04/07/2024 Procedure: Basilic vein midline catheter placment and port removal; Surgeon: Malia Garrett DO; Location: [facility] OR Talar fracture lt foot surgery 10/1998 TONSILLECTOMY & ADENOIDECTOMY 1995 TRANSESOPHAGEAL ECHOCARDIOGRAM INTRAOPERATIVE N/A 09/17/2021 Procedure: ECHOCARDIOGRAM, TRANSESOPHAGEAL, INTRAOPERATIVE; Surgeon: GENERIC ANESTHESIA PROVIDER; Location: [facility] OR TUBAL LIGATION Physical Exam Patient Vitals for the past 24 hrs: BP Temp Temp src Pulse Resp SpO2 Height Weight 09/12/24 2240 113/49 -- -- 110 18 99 % -- -- 09/12/242015 (!) 163/95 98.1 ??F (36.7 ??C) Oral 103 18 99 % 1.676 m (5' 6) 116.9 kg (257 lb 11.5oz) Physical Exam HEENT: Oropharynx is moist. No tonsillar erythema without exudate or asymmetric edema. No deviation of the uvula. No pooling of secretions, trismus or sublingual edema. Postsurgical changes consistent with extraction of right upper molars without significant adjacent edema, purulent drainage Eyes: Conjunctiva normal Neck: Supple, no meningismus. No pain with manipulation of the hyoid. CV: Regular rate and rhythm. No murmurs, rubs or gallops. PULM: Clear to auscultation bilateral. No respiratory distress. No stridor. MSK: No gross deformity to all four extremities. LYMPH: No cervical lymphadenopathy. NEURO: Alert. Normal muscular tone, no atrophy. Skin: Warm, dry and intact. PSYCH: Anxious Diagnostics Lab Results Labs Ordered and Resulted from Time of ED Arrival to Time of ED Departure - No data to display Imaging No orders to display Independent Interpretation None ED Course Medications Administered Medications HYDROmorphone (DILAUDID) tablet 2 mg (2 mg Oral $Given 09/12/24 8897) Procedures Procedures Narrative: Procedure: Dental block LOCATION: Superior periosteal nerve block ANESTHESIA: Superior periosteal nerve block to right upper molar utilizing bupivacaine 0.5% withoutepinephrine total of 2.5 cc Discussion of Management None ED Course Additional Documentation None Medical Decision Making / Diagnosis HARRIET Lopez is a 38 year old female presents with right upper facial/dental pain after dental extraction last week. She has no convincing signs of secondary infection including abscess or require incision and drainage. Patient underwent dental block and a single dose of oral analgesics. Patient to continue her home analgesics and follow-up with her dental surgeon. Disposition The patient was discharged. Diagnosis ICD-10-CM 1. Facial pain R51.9 2. Pain, dental K08.89 Discharge Medications Discharge Medication List as of 09/12/2024 10:35 PM MD [place] Kay Jeremiah R, MD 09/13/24 0123 * Rita Thornton RN - 09/12/2024 8:15 PM CDT Patient had a oral procedure done last and she states that she is unable to get the pain under control. Patient states she was prescribed oxycodone by the oral surgeon but that she vomits after taking these, she attempted to have her primary care provider prescribe her medications but he re fused and deferred to the oral surgeon, per patients notes today she requested the oral surgeon prescribe her Dilaudid but he refused as he is not comfortable prescribing that mediation. Patient saw her oral surgeon today. Triage Assessment (Adult) Row Name 09/12/242014 Triage Assessment Airway WDL WDL Respiratory WDL Respiratory WDL WDL Skin Circulation/Temperature WDL Skin Circulation/Temperature WDL WDL Cardiac WDL Cardiac WDL WDL Peripheral/Neurovascular WDL Peripheral Neurovascular WDL WDL Cognitive/Neuro/Behavioral WDL Cognitive/Neuro/Behavioral WDL WDL documented in this encounter Plan of Treatment Upcoming Encounters Date Type Department Care Team (Late st Contact Info) Description 02/20/2025 10:20 AM CDT Appointment [facility] Imaging [address] [place] [address] [place] [phone] Allyssa Justice MD [facility] [address] [place] [address] [place] [address] 02/27/2025 10:40 AM CDT Virtual Visit [facility] [address], [place] [address] [facility] [place] [phone] Allyssa Justice MD [facility] [address] [place] [address] [place] [address] documented as of this encounter Visit Diagnoses Diagnosis Facial pain Headache Pain, dental Unspecified disorder of the teeth and supporting structures documented in this encounter Administered Medications Inactive Administered Medications - up to 3 most recent administrations Medication Order MAR Action Action Date Dose Rate Site HYDROmorphone (DILAUDID) tablet 2 mg 2 mg, Oral, ONCE, On Wed09/12/24 at 2215, For 1 dose $Given 09/12/2024 10:32 PM CDT 2 mg documented in this encounter Active and Recently Administered Medications Times are shown in CDT. Scheduled Medication Order 09/10/2024 09/11/2024 09/12/2024 BUPivacaine (MARCAINE) 0.5% preservative free injection 50 mg (10 mL), Dental, ONCE, On Wed09/12/24 at 2210, For 1 dose 2210 (Canceled Entry - Provider: Orders Generic Provider - Comment: Automatically canceled at discontinue of medication order) HYDROmorphone (DILAUDID) tablet 2 mg (COMPLETED) 2 mg, Oral, ONCE, On Wed09/12/24 at 2215, For 1 dose 2232 ($Given - Provi rosita: Montserrat Zavala RN) 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 Assessment Noted Time PHQ-9 Depression Total Score: 4 02/21/20 24 1:54 PM CDT documented as of this encounter Care Teams Satellite Tv Installer Relationship Specialty Start [place] [address] [address] [address] PCP - General Family Medicine 04/22/23 [place] [address] [address] [address] Assigned Pain Medication Provider 12/07/22 [place] [address] [address] [address] Assigned PCP 01/23/23 [place] [address] [place] [address] Assigned Musculoskeletal Provider 01/23/23 09/19/24 Kingsley Garcia MD [address] [address] Assigned Heart and Vascular Provider 08/07/23 [place] [address] [address] [address] Family Medicine 09/10/23 Master Shea PA-C [address] [place] [address] Physician Coat Operator Insulator Gastroenterology 09/10/23 Allsysa Justice MD [facility] [address] [place] [address] [place] [address] Hematology & Oncology 12/10/23 Genaro Christian MD [address] [place] [address] Cardiovascular Disease 12/22/23 aMster Shea PA-C [address] [place] [address] Assigned Gastroenterology Provider 12/23/23 Sienna Guillermo DO [address] [place] [address] Physician Cardiovascular Disease 01/18/24 Allyssa Justice MD [facility] [address] [place] [address] [place] [address] Assigned Cancer Care Provider 03/21/24 Declan Leavitt MD [address] [place] [address] [place] [address] Assigned Surgical Provider 07/21/24 documented as of this encounter
--- OUTSIDE RECORDS SUMMARY | 2024-09-21 22:39 | XMS_ITS | Encounter Summary ---
Author Organization [facility] Address [address] [place] [address] Care Team Providers Care Director Of Primary Care Name Role Phone Segundo Mcclelland MD Unavailable [phone] Segundo Mcclelland MD Unavailable [phone] Qamar Jackson MD Unavailable Segundo Mcclelland MD Primary Care Provider + Kingsley Garcia MD Unavailable [phone] Segundo Mcclelland MD Unavailable [phone] Master Shea PA-C Unavailable Allyssa Justice MD Unavailable [phone] Genaro Christian MD Unavailable [phone] Master Shea PA-C Unavailable Sienna Guillermo DO Unavailable [phone] Allyssa Justice MD Unavailable [phone] Declan Leavitt MD Unavailable Reason for Visit * Reason Onset Date Comments Refill Request 09/12/2024 Encounter Details Date Type Department Care Team (Late st Contact Info) Description 09/12/2024 [facility] [address] [place] [address] [place] [address] [place] [address] Refill Request Social History Tobacco Use Types [...] AM CDT 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 Oral surgeon prescribed 3 tablets of oxycodone 5mg for patient. Patient throws up within 30 minutes of taking the oxy. Patient reports oral surgeon said I've never written a prescription for dilaudid outside of a hospital and deferred to Dr. Mcclelland. Patient requesting message be sent to Dr. Mcclelland. Krystina Bee RN 09/12/2024 5:42 PM [facility] * Telephone Encounter - Jolie Garcia RN - 09/12/2024 1:12 PM CDT Oral surgeon's office returned call. Provided response from provider and message below. Will defer to oral surgeon regarding any further follow up regarding this issue. Jolie Garcia RN on 09/12/2024 at 1:18 PM * Telephone Encounter - Krystina Bee RN - 09/12/2024 12:16 PM CDT Called patient to review Dr. Mcclelland's recommendation. Patient states [facility] called Daniel to tell them not to dispense further pain medication to the patient, since she is restricted to Dr. Mcclelland and [facility]. RN called [facility] and spoke to sara Reyes. She states the pain medications cannot be processed through insurance, but the patient can pay huang for them.She did this when she picked up the Oxycodone prescription on 09/05 and 09/07. RN called oral surgeon's office and spoke to Milady. Patient is scheduled for an appointment theretoday at 330pm to discuss her pain and concerns with the oral surgeon. Milady will have a nurse call back. RN called patient to update her on what was discussed with the [facility] pharmacist. She is requesting a [employer] message be sent with Dr. Mcclelland's recommendations for her to show her oral surgeon at the appointment this afternoon. Krystina Bee RN 09/12/2024 12:18 PM [facility] * Telephone Encounter - Segundo Mcclelland MD - 09/12/2024 11:28 AM CDT I will defer post surgical pain care to oral surgeon. Recommend she ask for dilauded as she has a history of not tolerating virtually everything else. Segundo Mcclelland MD * Telephone Encounter - Jolie Garcia RN - 09/12/2024 10:16 AM CDT Patient is asking for a refill of pain medication and antibiotics because she keeps throwing up pain medication prescribed by oral surgeon. She states she is having complications from a bone graft. She has been in contact with her oral surgeon but is waiting for a call back from them. She is askingto be seen by Dr. Mcclelland today. Informed pt PCP has no openings, she states she cannot see any other provider since she is restricted to Dr. Mcclelland. Pt was initially stating that she was not able to bead picker pain meds, but then says she was and threw them up. Called oral surgeon to get more info. Pt had extraction grafting on 09/05/24. Medications prescribed: 1 week of amoxicillin, oxycodone tablets PRN, two rounds have been given byoral surgeon. Surgeon is in close contact, their office is calling patient back today. Surgeon's office states she has not reported to them that she has been vomiting or was unable to bead picker meds. Confirmed with pharmacy: Pt picked up oxycodone 09/05, on 09/07. Amoxicillin was picked up on 09/05/24- was able to pay huang for them. Routing to PCP, I informed oral surgeon's office they need to follow up directly with patient regarding complications from oral surgery. Any other recommendations at this time? She is asking for painmedication. Jolie Garcia, RN on 09/12/2024 at 10:45 AM documented in this encounter Plan of Treatment Upcoming Encounters Date Type Department Care Team (Late st Contact Info) Description 02/20/2025 10:20 AM CDT Appointment [facility] [address] [place] [address] [place] [address] Allyssa Justice MD [facility] [address] [place] [address] [place] [address] 02/27/2025 10:40 AM CDT Virtual Visit [facility] [address] [place] [address] [facility] [place] [phone] Allyssa Justice MD [facility] [address] [place] [address] documented as of this encounter Visit Diagnoses Not on file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 Assessment Noted Time PHQ-9 Depression Total Score: 4 02/21/20 24 1:54 PM CDT documented as of this encounter Care Teams Director Of Primary Care Relationship Specialty Start [place] [address] [address] [address] PCP - General Family Medicine 04/22/23 [place] [address] [address] [address] Assigned Pain Medication Provider 12/07/22 [place] [address] [place] [address] Assigned PCP 01/23/23 [place] [address] [address] Assigned Musculoskeletal Provider 01/23/23 09/19/24 Kingsley Garcia MD [address] [place] [address] Assigned Heart and Vascular Provider 08/07/23 [place] [address] [place] [address] Family Medicine 09/10/23 Master Shea PA-C [address] [place] [address] Physician Area Cleaner Gastroenterology 09/10/23 Allyssa Justice MD [facility] [address] [place] [address] [place] [address] Hematology & Oncology 12/10/23 Genaro Christian MD [address] [place] [address] Cardiovascular Disease 12/22/23 Master Shea PA-C [address] [place] [address] Assigned Gastroenterology Provider 12/23/23 Sienna Guillermo DO [address] [place] [address] Physician Cardiovascular Disease 01/18/24 Allyssa Justice MD [facility] [address] [place] [address] [place] [address] Assigned Cancer Care Provider 03/21/24 Declan Leavitt MD [address] [place] [address] [place] [address] Assigned Surgical Provider 07/21/24 documented as of this encounter
--- OUTSIDE RECORDS SUMMARY | 2024-09-21 22:39 | XMS_ITS | Encounter Summary ---
Author Organization [place] Address [address] [place] [address] Care Team Providers Care Computing Architect Name Role Phone Segundo Mcclelland MD Unavailable [phone] Segundo Mcclelland MD Unavailable [phone] Segundo Mcclelland MD Primary Care Provider + Kingsley Garcia MD Unavailable + [phone] Segundo Mcclelland MD Unavailable [phone] Master Shea PA-C Unavailable Allyssa Justice MD Unavailable [phone] Genaro Christian MD Unavailable [phone] Master Shea PA-C Unavailable Sienna Guillermo DO Unavailable [phone] Allyssa Justice MD Unavailable [phone] Declan Leavitt MD Unavailable Ugo Ochoa MD Unavailable Reason for Visit * Reason Comments Nausea & Vomiting Encounter Details Date Type Department Care Team (Late st Contact Info) Description 09/21/2024 6:03 PM CDT - 09/21/2024 7:34 PM CDT [facility] Emergency Dept [address] [place] [address] Lesley Nair MD [facility] [address] [place] [address] [place] [address] Nausea, vomiting, and diarrhea Discharge Disposition: Left Without Being Seen Social History Tobacco Use Types Packs/Day Years [...] in an abandoned building, in an overnight care home, or couch-surfing.) Yes 08/26/2023 Are you [...] AM CDT 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 Gender Identity Female 05/26/2021 10:37 AM CDT [...] as needed for anaphylaxis 1 each 04/17/2021 ferrous sulfate (FE-JOSE ALBERTO IRON) 75 (15 FE) MG/ML oral dropsIndications:A nemia due to blood loss, acute Take 5ml by mouth daily 50 mL 1 09/21/2024 fluconazole (DIFLUCAN) 200 MG tabletIndications: Osteomyelitis, unspecified site, unspecified type (H) Take 1 tablet (200 mg) by mouth three times a week 18 tablet 04/12/2024 folic acid (FOLVITE) 400 MCG tabletIndications: Anemia due to blood loss, acute Take 1 tablet (400 mcg) by mouth daily 90 tablet 1 06/09/2024 gabapentin (NEURONTIN) 800 MG tablet Take 1,200 mg by mouth 3 times daily. HYDROmorphone (DILAUDID) 4 MG tabletIndications: Tooth pain Take 1 tablet (4 mg) by mouth every 6 hours as needed for severe pain. 10 tablet 09/14/2024 LORazepam (ATIVAN) 1 MG tablet Take 1 mg by mouth every 6 hours as needed for anxiety naloxone (NARCAN) 4 MG/0.1ML nasal spray Novinger 4 mg into one nostril alternating nostrils once as needed for opioid reversal 06/28/2023 pantoprazole (PROTONIX) 40 MG EC tablet Take 40 mg by mouth daily sodium chloride 0.9% infusionIndication s:Gastroparesis Inject 1,000 mLs into the vein as needed for other (Wednesday with IV antibiotic) 55348 mL 06/02/2024 sucralfate (CARAFATE) 1 GM tabletIndications: Kathleen-Medrano tear Take 1 tablet (1 g) by mouth 4 times daily 120 tablet 1 06/09/2024 zolpidem (AMBIEN) 10 MG tablet Take 10 mg by mouth At Bedtime 12/17/2022 documented as of this encounter ED Notes * Kelly Laureano RN - 09/21/2024 7:31 PM CDT Pt. Reports she wanted to wait for her labs to come back before she left with her . Pt. Informed of lab values and that they were normal and within comparison to her last values. Pt. Reports she wanted to leave with her . Pt. Wheeled to the front with her crutches to wait for her to come and get her. * Kelly Laureano RN - 09/21/2024 7:16 PM CDT Called Augie in patient demographics per pt. Request. He reports he will pick her up per her request but it will take awhile. Pt. Still trying to force herself to vomit. * Kamryn Paiz RN - 09/21/2024 6:46 PM CDT Pt seen walking in Intake 5 without using crutches. * Kelly Laureano RN - 09/21/2024 6:40 PM CDT Pt. Refusing to take oral benadryl. Reports she keeps vomiting everything up. No vomit assessed in triage. Author can audibly hear patient forcing herself to vomit in room. * Kelly Laureano RN - 09/21/2024 6:34 PM CDT Pt. Singing in room. Intermittent dry heaving and burping without vomiting. * Lesley Nair MD - 09/21/2024 6:29 PM CDT Emergency Department Note History of Present Illness Chief Complaint Nausea & Vomiting HPI Sandi Lopez is a 38 year old female with a history of hypertension who presents to the emergency department for evaluation of nausea and vomiting. The patient reports that since last night she has had nausea, vomiting, and diarrhea. She states that she has had 7 episodes of vomiting and 2 episodes of diarrhea. She notes that her child had a recent GI illness. Furthermore, she reports thatshe also slipped and tore her labrum today and endorses associated pain. She states that she takes gabapentin and Ativan daily. She reports previous allergic reactions to Zofran and other medications. She denies any fever, abdominal pain, or black and bloody stool. Independent Historian None Review of External Notes Review the patient's many visits to the ED and her care plan Past Medical History Medical History and Problem List Anemia Atrial flutter Borderline personality disorder Continuous opioid dependence Depression Dysthymic disorder GERD Gastroparesis Hypertension Kidney stone Kathleen-medrano teat Asthma DVT Obesity Chronic pain syndrome Osteomyelitis of lumbar spine Postural orthostatic tachycardia syndrome PTSD Pulmonary embolism Psychogenic nonepileptic seizure Medications Benadryl Epinephrine Diflucan Folvite Neurontin Ativan Narcan Eliquis Protonix Carafate Ambien Baclofen Dilaudid Ambien Surgical History Adenoidectomy Appendectomy Arthroscopy of knee with lateral meniscectomy Back surgery Cautery of cervix, cryocautery Cerclage cervical Cholecystectomy Colonoscopy Colposcopy Endoscopic retrograde cholangiopancreatography EGD combined Hysterectomy Insert PICC line Laryngoscopy Oophorectomy Talar fracture foot surgery Tonsillectomy and adenoidectomy Physical Exam Patient Vitals for the past 24 hrs: BP Temp Temp src Pulse Resp SpO2 09/21/24 1747 132/69 98.4 ??F (36.9 ??C) Temporal 110 20 100 % Physical Exam General: Adult sitting upright Eyes: PERRL, Conjunctive within normal limits. No scleral icterus ENT: Lips are dry. Oropharynx clear and intraoral mucous membranes appear moist. CV: Normal S1S2.. Regular rate and rhythm Resp: Normal respiratory effort. GI: Abdomen is soft, nontender and nondistended. No palpable masses. No rebound or guarding. MSK: Ambulatory with crutches. Skin: Warm and dry. No rashes or lesions or ecchymoses on visible skin. Neuro: Alert and oriented. Responds appropriately to all questions and commands. No focal findings appreciated. Normal muscle tone. Psych: Appropriate Diagnostics Lab Results Labs Ordered and Resulted from Time of ED Arrival to Time of ED Departure BASIC METABOLIC PANEL - Abnormal Result Value Sodium 138 Potassium 4.7 Chloride 103 Carbon Dioxide (CO2) 21 (*) Anion Gap 14 Urea Nitrogen 20.4 (*) Creatinine 0.74 GFR Estimate >90 Calcium 8.6 (*) Glucose 99 Independent Interpretation None ED Course Medications Administered Patient refused oral medications Discussion of Management None ED Course ED Course as of 09/21/242051 Marleny Sep 21, 20241821 I initially assessed the patient and obtained the above history and physical exam. I reassessed the patient. She is upset as she has not been given IV Ativan or Benadryl. I explainedher desire to attempt oral medications initially with oral rehydration. She did agree to lab draw and attempt initially RN informed me that patient left, eloped prior to my reassessment Additional Documentation None Medical Decision Making / Diagnosis HARRIET Lopez is a 38 year old female who presents for evaluation of nausea, vomiting and diarrhea with no abdominal pain or abdominal tenderness on abdominal examination. There are ill contacts a reported child at home with similar symptoms. I considered a broad differential diagnosis for this patient including viral gastroenteritis, bacterial infection of the large intestine (salmonella, shigella, campylobacter, e coli, etc), bowel obstruction, intra- abdominal infection such as colitis,food poisoning, cholecystitis, UTI, pyelonephritis, appendicitis, etc. There are no signs of worrisome intra- abdominal pathologies detected during the visit today. She has a completely benign abdominal exam without rebound, guarding, or marked tenderness to palpation. Supportive management is therefore indicated. The patient was nontoxic in appearance and afebrile. She had no vomiting appreciatedhere in the emergency department yet was refusing oral medications. She is requesting IV Ativan andBenadryl. This did not seem clinically indicated given her ability to take p.o. Ultimately, she left prior to my reassessment and disposition planning after allowing for a phlebotomy draw for blood. I reviewed her basic metabolic panel, not emergently concerning. Disposition The patient eloped from the emergency department. Diagnosis ICD-10-CM 1. Nausea, vomiting, and diarrhea R11.2 R19.7 Scribe Disclosure: I, Carolji WinstonTara, am serving as a scribe at 6:29 PM on 09/21/2024 to document services personallyperformed by Lesley Nair MD based on my observations and the provider's statements to me. Lesley Nair MD 09/21/242110 * Alanna Esqueda RN - 09/21/2024 5:45 PM CDT Pt here for n/v and dehydration. Believes she caught her children's stomach flu. Also tore her labrum falling into the splits today and was seen at [facility] - MRI tomorrow. Unsure if pain is also exacerbating her nausea/vomiting. 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 Plan of Treatment Upcoming Encounters Date Type Department Care Team (Late st Contact Info) Description 02/20/2025 10:20 AM CDT Appointment [facility] Imaging [address] [place] [address] [place] [address] Allysas Justice MD [facility] [address] [place] [address] [place] [address] 02/27/2025 10:40 AM CDT Virtual Visit [facility] [address] [place] [facility] Medical [facility] [place] [id number] Allyssa Justice MD [facility] [address] [place] [address] [place] [id number] documented as of this encounter Procedures Procedure Name Priority Date/Time Associated Diagnosis Comments BASIC METABOLIC PANEL STAT 09/21/2024 7:01 PM CDT documented in this encounter Results * (ABNORMAL) Basic metabolic panel (BMP) (09/21/2024 7:01 PM CDT) Sodium 138 135 - 145 mmol/L 09/21/2024 [...] - 20.0 mg/dL 09/21/2024 7:27 PM CDT [facility] Creatinine 0.74 0.51 - 0.95 mg/dL 09/21/2024 7:27 PM CDT [facility] GFR Estimate >90 >60 mL/min/1.7 3m2 09/21/2024 7:27 PM CDT [facility] Comment:eGFR calculated usin 2020 CKD-EPI equation. Calcium 8.6(L) 8.8 - 10.4 mg/dL 09/21/2024 7:27 PM CDT [facility] Comment:Reference intervals for [...] - BLOOD ORDERABLES F inal Result LABORATORY [facility] [address] [facility] (1st floor, no room number) [place] [address], [facility] documented in this encounter Visit Diagnoses Diagnosis Nausea, vomiting, and diarrhea documented in this encounter Active and Recently Administered Medications Additional Health Concerns 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 Assessment Noted Time PHQ-9 Depression Total Score: 4 02/21/20 24 1:54 PM CDT documented as of this encounter Care Teams Computing Architect Relationship Specialty Start [place] [address] [place] [address] PCP - General Family Medicine 04/22/23 [place] [address] [place] [address] Assigned Pain Medication Provider 12/07/22 [place] [address] [place] [address] Assigned PCP 01/23/23 Kingsley Garcia MD [address] [place] [address] Assigned Heart and Vascular Provider 08/07/23 [place] [address] [place] [address] Family Medicine 09/10/23 Master Shea PA-C [address] [place] [address] Physician Movie Theater Manager Gastroenterology 09/10/23 Allyssa Justice MD [facility] [address] [place] [address] [place] [address] Hematology & Oncology 12/10/23 Genaro Christian MD [address] [place] [address] Cardiovascular Disease 12/22/23 Master Shea PA-C [address] [place] [address] Assigned Gastroenterology Provider 12/23/23 Sienna Guillermo DO [address] [place] [address] Physician Cardiovascular Disease 01/18/24 Allyssa Justice MD [facility] [address] [place] [address] Assigned Cancer Care Provider 03/21/24 Declan Leavitt MD [address] [place] [address] [place] [address] Assigned Surgical Provider 07/21/24 Ugo Ochoa MD [address] [place], [place] [address]290[address] Assigned Neuroscience Provider 09/20/24 documented as of this encounter
--- OUTSIDE RECORDS SUMMARY | 2024-09-21 22:39 | XMS_ITS | Encounter Summary ---
Author Organization [facility] Address [address] [place] [address] Care Team Providers Care Machinist Supervisor Name Role Phone Segundo Mcclelland MD Unavailable [phone] Segundo Mcclelland MD Unavailable [phone] Qamar Jackson MD Unavailable Segundo Mcclelland MD Primary Care Provider + Kingsley Garcia MD Unavailable Segundo Mcclelland MD Unavailable [phone] Master Shea PA-C Unavailable Allyssa Justice MD Unavailable [phone] Genaro Christian MD Unavailable [phone] Master Shea PA-C Unavailable Sienna Guillermo DO Unavailable [phone] Allyssa Justice MD Unavailable [phone] Declan Leavitt MD Unavailable Ugo Ochoa MD Unavailable Encounter Details Date Type Department Care Team (Late st Contact Info) Description 09/06/2024 Hospital Encounter [facility] [address] [phone] Social History Tobacco Use Types Packs/Day Years [...] Date Recorded Do you have housing? 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 Imaging [address] [place] [address] [place] [address] Allyssa Justice MD [facility] [address] [place] [address] [place] [address] 02/27/2025 10:40 AM CDT Virtual Visit [facility] [address] [facility] Medical Ctr [place] [phone] Allyssa Justice MD [facility] [address] [place] [place] [id number] documented as of this encounter Visit Diagnoses Not on file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 Assessment Noted Time PHQ-9 Depression Total Score: 4 02/21/20 1:54 PM CDT documented as of this encounter Care Teams Machinist Supervisor Relationship Specialty Start [place] [address] [address] [place] [address] PCP - General Family Medicine 04/22/23 [place] [address] [address] [address] Assigned Pain Medication Provider 12/07/22 [place] [address] [address] [place] [address] Assigned PCP 01/23/23 [place] [address] [place] [address] Assigned Musculoskeletal Provider 01/23/23 09/19/24 Kingsley Garcia MD [address] [place] [address] Assigned Heart and Vascular Provider 08/07/23 [place] [address] [place] [address] Family Medicine 09/10/23 Master Shea PA-C [address] [place] [address] Physician Fruit Grader Gastroenterology 09/10/23 Allyssa Justice MD [facility] [address] [place] [address] [place] [address] Hematology & Oncology 12/10/23 Genaro Christian MD [address] [place] [address] Cardiovascular Disease 12/22/23 Master Shea PA-C [address] [place] [address] Assigned Gastroenterology Provider 12/23/23 Sienna Guillermo DO [address] [place] [address] Physician Cardiovascular Disease 01/18/24 Allyssa Justice MD [facility] [address] [address] [place] [address] Assigned Cancer Care Provider 03/21/24 Declan Leavitt MD [address] [facility] [address] [place], [place] [address] Assigned Surgical Provider 07/21/24 Ugo Ochoa MD [address] [place], [place] [address] Assigned Neuroscience Provider 09/20/24 documented as of this encounter
--- OUTSIDE RECORDS SUMMARY | 2024-09-21 22:39 | XMS_ITS | Encounter Summary ---
Author Organization [place] Address [address] [place] [address] Care Team Providers Care Teacher Of The Handicapped Name Role Phone Segundo Mcclelland MD Unavailable [phone] Segundo Mcclelland MD Unavailable [phone] Segundo Mcclelland MD Primary Care Provider + Kingsley Garcia MD Unavailable [phone] Segundo Mcclelland MD Unavailable [phone] Master Shea PA-C Unavailable Allyssa Justice MD Unavailable Genaro Christian MD Unavailable [phone] Master Shea PA-C Unavailable Sienna Guillermo DO Unavailable [phone] Allyssa Justice MD Unavailable [phone] Declan Leavitt MD Unavailable Ugo Ochoa MD Unavailable Encounter Details Date Type Department Care Team (Late st Contact Info) Description 09/20/2024 [facility] [address] [address] [place] [address] [place] [address] Anemia due to blood loss, acute Social History Tobacco Use Types Packs/Day Years [...] in an abandoned building, in an overnight [place] [facility], or couch-surfing.) Yes 08/26/2023 Are you worried [...] AM CDT 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 Routing to provider. Jolie Garcia RN on 09/21/2024 at 7:18 AM documented in this encounter Plan of Treatment Upcoming Encounters Date Type Department Care Team (Late st Contact Info) Description 02/20/2025 10:20 AM CDT Appointment [facility] Imaging [address] [place] [address] Allyssa Justice MD [facility] [address] [place] [address] [place] [address] 02/27/2025 10:40 AM CDT Virtual Visit [facility] [address] [facility] Medical [facility] [place] [address] Allyssa Justice MD [facility] [address] [place] [place] [address] documented as of this encounter Visit Diagnoses Diagnosis Anemia due to blood loss, acute Acute posthemorrhagic anemia 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 Assessment Noted Time PHQ-9 Depression Total Score: 4 02/21/20 1:54 PM CDT documented as of this encounter Care Teams Teacher Of The Handicapped Relationship Specialty Start [place] [address] [address] [place] [address] PCP - General Family Medicine 04/22/23 [place] [address] [address] [place] [address] Assigned Pain Medication Provider 12/07/22 [place] [address] [address] [place] [address] Assigned PCP 01/23/23 Kingsley Garcia MD [address] [place] [address] Assigned Heart and Vascular Provider 08/07/23 [place] [address] [address] [place] [address] Family Medicine 09/10/23 Master Shea PA-C [address] [place] [address] Physician Nurse Instructor Gastroenterology 09/10/23 Allyssa Justice MD [facility] [address] [place] [address] Hematology & Oncology 12/10/23 Genaro Christian MD [address] [place], [place] [address] Cardiovascular Disease 12/22/23 Master Shea PA-C [address] [place] [address] Assigned Gastroenterology Provider 12/23/23 Sienna Guillermo DO [address] [place] [address] Physician Cardiovascular Disease 01/18/24 Allyssa Justice MD [facility] [address] [place] [id number] Assigned Cancer Care Provider 03/21/24 Declan Leavitt MD [address] [place] [id number] Assigned Surgical Provider 07/21/24 Ugo Ochoa MD [address] [place] [address] Assigned Neuroscience Provider 09/20/24 documented as of this encounter
--- OUTSIDE RECORDS SUMMARY | 2024-09-21 22:39 | XMS_ITS | Encounter Summary ---
Author Organization [facility] Address [address] [place] [address] Care Team Providers Care Machine Lacer Name Role Phone Segundo Mcclelland MD Unavailable [phone] Segundo Mcclelland MD Unavailable [phone] Qamar Jackson MD Unavailable Segundo Mcclelland MD Primary Care Provider + Kingsley Garcia MD Unavailable + [phone] Segundo Mcclelland MD Unavailable [phone] Master Shea PA-C Unavailable Allyssa Justice MD Unavailable [phone] Genaro Christian MD Unavailable [phone] Master Shea PA-C Unavailable Sienna Guillermo DO Unavailable [phone] Allyssa Justice MD Unavailable [phone] Declan Leavitt MD Unavailable Encounter Details Date Type Department Care Team (Late st Contact Info) Description 09/14/2024 [facility] [address] [place] [address] [place] [address] [place] [address] Social History Tobacco Use Types Packs/Day Years [...] AM CDT 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 Faxed. Kait Winters Lead Paper Coater [facility] [place] * Telephone Encounter - Bethanie Aguilar - 09/14/2024 4:26 PM CDT Placed in Provider basket for review and signature. Yvette eJff * Telephone Encounter - Justine Adkins - 09/14/2024 4:18 PM CDT Forms/Letter Request Type of form/letter: OTHER: [facility] Plan Referrals Do we have the form/letter: Yes: front desk assistant in basket Who is the form from? [facility] Where did/will the form come from? 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 [facility] [place] documented in this encounter Plan of Treatment Upcoming Encounters Date Type Department Care Team (Late st Contact Info) Description 02/20/2025 10:20 AM CDT Appointment [facility] Imaging [address] [place] [address] Allyssa Justice MD [facility] [address] [place] [address] [place] [address] 02/27/2025 10:40 AM CDT Virtual Visit [facility] [address], [place] [address] [facility] Medical Ctr [place] [phone] Allyssa Justice MD [facility] [address] [place] [address] [place] [address] documented as of this encounter Visit Diagnoses Not on file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 Assessment Noted Time PHQ-9 Depression Total Score: 4 02/21/20 24 1:54 PM CDT documented as of this encounter Care Teams Machine Lacer Relationship Specialty Start [place] [address] [address] [place] [address] PCP - General Family Medicine 04/22/23 [place] [address] [address] [place] [address] Assigned Pain Medication Provider 12/07/22 [place] [address] [address] [place] [address] Assigned PCP 01/23/23 [place] [address] [place] [address] Assigned Musculoskeletal Provider 01/23/23 09/19/24 Kingsley Garcia MD [address] [place] [address] Assigned Heart and Vascular Provider 08/07/23 [place] [address] [address] [place] [address] Family Medicine 09/10/23 Master Shea PA-C [address] [place] [address] Physician Co Founder And Ceo Gastroenterology 09/10/23 Allyssa Justice MD [facility] [address] [place] [address] [place] [address] Hematology & Oncology 12/10/23 Genaro Christian MD [address] [place] [address] Cardiovascular Disease 12/22/23 Master Shea PA-C [address] [place] [address] Assigned Gastroenterology Provider 12/23/23 Sienna Guillermo DO [address] [place] [address] Physician Cardiovascular Disease 01/18/24 Allyssa Justice MD [facility] [address] [address] [place] [address] Assigned Cancer Care Provider 03/21/24 Declan Leavitt MD [address] [place] [address] [place] [address] Assigned Surgical Provider 07/21/24 documented as of this encounter
--- OUTSIDE RECORDS SUMMARY | 2024-09-21 22:40 | XMS_ITS | Encounter Summary ---
Author Organization [facility] Address [address] [place] [address] Care Team Providers Care Dispensary Attendant Name Role Phone Segundo Mcclelland MD Unavailable [phone] Segundo Mcclelland MD Unavailable [phone] Qamar Jackson MD Unavailable Segundo Mcclelland MD Primary Care Provider + Kingsley Garcia MD Unavailable + [phone] Segundo Mcclelland MD Unavailable [phone] Master Shea PA-C Unavailable Allyssa Justice MD Unavailable [phone] Genaro Christian MD Unavailable [phone] Master Shea PA-C Unavailable Sienna Guillermo DO Unavailable [phone] Allyssa Justice MD Unavailable [phone] Declan Leavitt MD Unavailable Reason for Visit * Reason Onset Date Comments Patient Request 08/22/2024 [facility]/Dr. Dave guadarrama Encounter Details Date Type Department Care Team (Late st Contact Info) Description 08/22/2024 Telephone [facility] Neurology [facility] [place] [address] [place] [address] Ugo Ochoa MD [address] [place] [address] Patient Request ([facility]/Dr. 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 Per Dr. Garrett, [facility] no longer does the Blood Patch procedure. The procedure has been rescheduled to [facility] on 08/30/2024 with an 11:30 a.m. arrival time. The patient is aware as well and will review the [employer] message sent with the directions. Halle R/Navdeep Procedure Elephant Tamer [facility] Neurology, NeuroSurgery, NeuroPsychology, Pain Management and Cardiology Specialties Medical/Surgical Adult Specialties * Telephone Encounter - Halle Gonzalez - 08/22/2024 2:33 PM CDT Patient has a question about how long she is supposed to withhold the blood thinners(prescribed by Dr. Mcclelland, her PCP)for the Blood Patch procedure on 09/06/2024 at [facility]. She also has a question about what to do about the headaches until the procedure on 09/06/2024. She has the information regarding the preparation(arrive early and have a fence post driver), and the location. Please call her at home to discuss further the medication withholding and her concerns about her headaches. Thank you. Halle R/Navdeep Procedure Elephant Tamer [facility] Neurology, NeuroSurgery, NeuroPsychology, Pain Management and Cardiology Specialties Medical/Surgical Adult Specialties documented in this encounter Plan of Treatment Upcoming Encounters Date Type Department Care Team (Late st Contact Info) Description 02/20/2025 10:20 AM CDT Appointment [facility] Imaging [address] [place] [phone] Allyssa Justice MD [facility] [address] [address] 02/27/2025 10:40 AM CDT Virtual Visit [facility] [address], [place] [address] [facility] Medical Ctr [place] [phone] Allyssa Justice MD [facility] [address] [place] [address] [place] [address] documented as of this encounter Visit Diagnoses Not on file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 Assessment Noted Time PHQ-9 Depression Total Score: 4 02/21/20 24 1:54 PM CDT documented as of this encounter Care Teams Dispensary Attendant Relationship Specialty Start [place] [address] [place] [address] PCP - General Family Medicine 04/22/23 [place] [address] [place] [address] Assigned Pain Medication Provider 12/07/22 [place] [address] [address] [address] Assigned PCP 01/23/23 [place] [address] [place] [address] Assigned Musculoskeletal Provider 01/23/23 09/19/24 Kingsley Garcia MD [address] [place] [address] Assigned Heart and Vascular Provider 08/07/23 [place] [address] [address] [place] [address] Family Medicine 09/10/23 Master Shea PA-C [address] [place] [address] Physician Fireperson Gastroenterology 09/10/23 Allyssa Justice MD [facility] [address] [place] [address] [place] [address] Hematology & Oncology 12/10/23 Genaro Christian MD [address] [place] [address] Cardiovascular Disease 12/22/23 Master Shea PA-C [address] [place] [address] Assigned Gastroenterology Provider 12/23/23 Sienna Guillermo DO [address] [place] [address] Physician Cardiovascular Disease 01/18/24 Allyssa Justice MD [facility] [address] [place] [address] Assigned Cancer Care Provider 03/21/24 Declan Leavitt MD [address] [place] [address] [place] [address] Assigned Surgical Provider 07/21/24 documented as of this encounter
--- OUTSIDE RECORDS SUMMARY | 2024-09-21 22:40 | XMS_ITS | Encounter Summary ---
Author Organization [facility] Address [address] [place] [address] Care Team Providers Care Salesperson Recreational Vehicles Name Role Phone Segundo Mcclelland MD Unavailable [phone] Segundo Mcclelland MD Unavailable [phone] Qamar Jackson MD Unavailable Segundo Mcclelland MD Primary Care Provider + Kingsley Garcia MD Unavailable + [phone] Segundo Mcclelland MD Unavailable [phone] Master Shea PA-C Unavailable Allyssa Justice MD Unavailable [phone] Genaro Christian MD Unavailable [phone] Master Shea PA-C Unavailable Sienna Guillermo DO Unavailable [phone] Allyssa Justice MD Unavailable [phone] Declan Leavitt MD Unavailable Encounter Details Date Type Department Care Team (Late st Contact Info) Description 08/29/2024 [facility] [address] [address] Ugo Ochoa MD [address] [place] [address] Social History Tobacco Use Types Packs/Day Years [...] AM CDT 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 Segundo Mcclelland MD Nelson, Makayla, RN I'd have her hold her Eliquis for 3 days before the procedure. Restart after 24 hours. Segundo Mcclelland MD Previous Messages ----- Message ----- From: Yumiko Alexandra RN Sent: 09/05/2024 9:55 AM CDT To: Segundo Mcclelland MD Good morning Dr. Mcclelland, I'm not sure if you've had a chance to review my message from last week or not, but I told the patient I would reach out again today about your hold recommendations for patient's upcoming procedure. We have ordered an epidural blood patch procedure & are wondering how long patient should hold her Eliquis 5 mg before & after? Thank you, RAFIA Perez RN Rehabilitation Director Neurology/Neurosurgery/PM&R/Pain Management ----- Message ----- From: Edgar Ross PA-C Sent: 08/31/2024 12:24 PM CDT To: Yumiko Alexandra RN [facility] - Dr. Mcclelland is out of the clinic this week and we'll have him address when he returns. We didn't see any prior request for him unfortunately until this one. Hopefully she wont take too long candido rescheduled Aj Ross PA-C ----- Message ----- From: Yumiko Alexandra RN Sent: 08/30/2024 10:00 AM CDT To: Segundo Mcclelland MD [place] Dr. Mcclelland, Dr. Ochoa has ordered an epidural blood patch for Sandi. It was scheduled for today but it will likely be cancelled because she hasn't stopped taking her apixaban ANTICOAGULANT (ELIQUIS) 5 MG tablet. Please advise on how many days this medication should be held prior to the procedure & we will work on rescheduling her. Thank you in advance, RAFIA Perez RN Rehabilitation Director Neurology/Neurosurgery/PM&R/Pain Management documented in this encounter Plan of Treatment Upcoming Encounters Date Type Department Care Team (Late st Contact Info) Description 02/20/2025 10:20 AM CDT Appointment [facility] Imaging [address] [place] [phone] Allyssa Justice MD [facility] [address] [place] [place] [address] 02/27/2025 10:40 AM CDT Virtual Visit [facility] [address], [place] [address] [facility] Medical Ctr [place] [phone] Allyssa Justice MD [facility] [address] [place] [address] [place] [address] documented as of this encounter Visit Diagnoses Not on file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 Assessment Noted Time PHQ-9 Depression Total Score: 4 02/21/20 1:54 PM CDT documented as of this encounter Care Teams Salesperson Recreational Vehicles Relationship Specialty Start [place] [address] [address] [place] [address] PCP - General Family Medicine 04/22/23 [place] [address] [address] [address] Assigned Pain Medication Provider 12/07/22 [place] [address] [address] [address] Assigned PCP 01/23/23 [place] [address] [place] [address] Assigned Musculoskeletal Provider 01/23/23 09/19/24 Kingsley Garcia MD [address] [place] [address] Assigned Heart and Vascular Provider 08/07/23 [place] [address] [place] [address] Family Medicine 09/10/23 aMster Shea PA-C [address] [place] [address] Physician Machine Overhauler Gastroenterology 09/10/23 Allyssa Justice MD [facility] [address] [place] [address] Hematology & Oncology 12/10/23 Genaro Christian MD [address] [place] [address] Cardiovascular Disease 12/22/23 Master Shea PA-C [address] [place] [address] Assigned Gastroenterology Provider 12/23/23 Sienna Guillermo DO [address] [place] [address] Physician Cardiovascular Disease 01/18/24 Allyssa Justice MD [facility] [address] [place] [address] Assigned Cancer Care Provider 03/21/24 Declan Leavitt MD [address] [place] [address] Assigned Surgical Provider 07/21/24 documented as of this encounter
--- OUTSIDE RECORDS SUMMARY | 2024-09-21 22:40 | XMS_ITS | Encounter Summary ---
Author Organization [facility] Address [address] [place] [address] Care Team Providers Care Guide Tour Name Role Phone Segundo Mcclelland MD Unavailable [phone] Segundo Mcclelland MD Unavailable [phone] Qamar Jackson MD Unavailable Segundo Mcclelland MD Primary Care Provider + Kingsley Garcia MD Unavailable + [phone] Segundo Mcclelland MD Unavailable [phone] Master Shea PA-C Unavailable Allyssa Justice MD Unavailable [phone] Genaro Christian MD Unavailable [phone] Master Shea PA-C Unavailable Sienna Guillermo DO Unavailable [phone] Allyssa Justice MD Unavailable [phone] Declan Leavitt MD Unavailable Reason for Visit * Reason Onset Date Comments Patient/info Update 08/30/2024 Encounter Details Date Type Department Care Team (Late st Contact Info) Description 08/30/2024 Telephone [facility] [address] [place] [address] [place] [address] [place] [address] Patient/info Update Social History Tobacco Use Types Packs/Day Years [...] in an abandoned building, in an overnight senior living, or couch-surfing.) Yes 08/26/2023 Are you worried [...] AM CDT 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 Jolie Garcia RN on 09/06/2024 at 8:29 AM * Telephone Encounter - Suzanne Wetzel RN - 09/05/2024 3:31 PM CDT Left message to call back any triage nurse. Suzanne Wetzel RN * Telephone Encounter - Segundo Mcclelland MD - 09/05/2024 1:53 PM CDT I did reply to the auto machinist for the procedure, but she should stop blood thinner for three days before until one day after procedure. Segundo Mcclelland MD * Telephone Encounter - Edgar Ross PA-C - 08/31/2024 12:21 PM CDT Please let patient know that Dr. Mcclelland is out of the office currently but can comment on this nextweek when he returns - he will need to make this decision. Please let patient know and resend this to his inbox * Telephone Encounter - Suzanne Wetzel RN - 08/30/2024 10:01 AM CDT Patient calling back. She has to cancel her appointment for blood patch today because she doesn'tknow how long she is suppose to be off her apixaban prior to the procedure. Requesting Dr. Mcclelland review and give recommendations for holding apixaban. documented in this encounter Plan of Treatment Upcoming Encounters Date Type Department Care Team (Late st Contact Info) Description 02/20/2025 10:20 AM CDT Appointment [facility] Center Imaging [address] [place] [phone] Allyssa Justice MD [facility] [address] [place] [address] [place] [address] 02/27/2025 10:40 AM CDT Virtual Visit [facility] [place] [address] [facility] Medical Ctr [place] [phone] Allyssa Justice MD [facility] [address] [place] [place] [address] documented as of this encounter Visit Diagnoses Not on file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 Assessment Noted Time PHQ-9 Depression Total Score: 4 02/21/20 24 1:54 PM CDT documented as of this encounter Care Teams Guide Tour Relationship Specialty Start [place] [address] [address] [place] [address] PCP - General Family Medicine 04/22/23 [place] [address] [address] [place] [address] Assigned Pain Medication Provider 12/07/22 [place] [address] [address] [address] Assigned PCP 01/23/23 [place] [address] [place] [address] Assigned Musculoskeletal Provider 01/23/23 09/19/24 Kingsley Garcia MD [address] [place] [address] Assigned Heart and Vascular Provider 08/07/23 [place] [address] [place] [address] Family Medicine 09/10/23 Master Shea PA-C [address] [place] [address] Physician Cleaner And Trimmer Gastroenterology 09/10/23 Allyssa Justice MD [facility] [address] [place] [address] Hematology & Oncology 12/10/23 Genaro Christian MD [address] [place], [place] [address] Cardiovascular Disease 12/22/23 Master Shea PA-C [address] [place] [address] Assigned Gastroenterology Provider 12/23/23 Sienna Guillermo DO [address] [place] [address] Physician Cardiovascular Disease 01/18/24 Allyssa Justice MD [facility] [address] [place] [address] Assigned Cancer Care Provider 03/21/24 Declan Leavitt MD [address] [place] [address] Assigned Surgical Provider 07/21/24 documented as of this encounter
--- OUTSIDE RECORDS SUMMARY | 2024-09-21 22:40 | XMS_ITS | Encounter Summary ---
Author Organization [facility] Address [address] [place] [address] Care Team Providers Care Campground Attendant Name Role Phone Segundo Mcclelland MD Unavailable [phone] Segundo Mcclelland MD Unavailable [phone] Qamar Jackson MD Unavailable Segundo Mcclelland MD Primary Care Provider + Kingsley Garcia MD Unavailable + [phone] Segundo Mcclelland MD Unavailable [phone] Master Shea PA-C Unavailable Allyssa Justice MD Unavailable [phone] Genaro Christian MD Unavailable [phone] Master Shea PA-C Unavailable Sienna Guillermo DO Unavailable [phone] Allyssa Justice MD Unavailable [phone] Declan Leavitt MD Unavailable Encounter Details Date Type Department Care Team (Latest Contact Info) Description 08/22/2024 Travel Social History Tobacco Use Types Packs/Day [...] AM CDT 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 Gender Identity Female 05/26/2021 10:37 AM CDT [...] Info) Description 02/20/2025 10:20 AM CDT Appointment [facility] [address] [place] [address] Allyssa Justice MD [facility] [address] [place] [address] [place] [address] 02/27/2025 10:40 AM CDT Virtual Visit [facility] [address] [place] [address] [facility] [place] [phone] Allyssa Justice MD [facility] [address] [place] [address] [place] [address] documented as of this encounter Visit Diagnoses Not on file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 Assessment Noted Time PHQ-9 Depression Total Score: 4 02/21/20 1:54 PM CDT documented as of this encounter Care Teams Campground Attendant Relationship Specialty Start [place] [address] [address] [address] PCP - General Family Medicine 04/22/23 [place] [address] [address] Assigned Pain Medication Provider 12/07/22 [place] [address] [address] [address] Assigned PCP 01/23/23 [place] [address] [place] [place] [address] Assigned Musculoskeletal Provider 01/23/23 09/19/24 Kingsley Garcia MD [address] [place] [address] Assigned Heart and Vascular Provider 08/07/23 [place] [address] [place] [address] Family Medicine 09/10/23 Master Shea PA-C [address] [place] [place] [address] Physician Stamp Maker Gastroenterology 09/10/23 Allyssa Justice MD [facility] [address] [place] [address] [place] 037795 Hematology & Oncology 12/10/23 Genaro Christian MD [address] [place] [address] [id number] Cardiovascular Disease 12/22/23 Master Shea PA-C [address] [place] [address] Assigned Gastroenterology Provider 12/23/23 Sienna Guillermo DO [address] [place] 603805 Physician Cardiovascular Disease 01/18/24 Allyssa Justice MD [facility] [address] [place] 697275 Assigned Cancer Care Provider 03/21/24 Declan Leavitt MD [address] [place] 786235 Assigned Surgical Provider 07/21/24 documented as of this encounter
--- OUTSIDE RECORDS SUMMARY | 2024-09-21 22:40 | XMS_ITS | Encounter Summary ---
Author Organization [facility] Address [address] [place] [address] Care Team Providers Care Bobcat Driver/Labor Name Role Phone Segundo Mcclelland MD Unavailable [phone] Segundo Mcclelland MD Unavailable [phone] Qamar Jackson MD Unavailable Segundo Mcclelland MD Primary Care Provider + Kingsley Garcia MD Unavailable + [phone] Segundo Mcclelland MD Unavailable [phone] Master Shea PA-C Unavailable Allyssa Justice MD Unavailable [phone] Genaro Christian MD Unavailable [phone] Master Shea PA-C Unavailable Sienna Guillermo DO Unavailable [phone] Allyssa Justice MD Unavailable [phone] Declan Leavitt MD Unavailable Reason for Visit * Reason Onset Date Comments Referral 08/21/2024 Encounter Details Date Type Department Care Team (Late st Contact Info) Description 08/21/2024 [facility] [address] [place] [address] [place] [address] [facility] [facility] [place] [place] [id number] Referral Social History Tobacco Use Types Packs/Day [...] Answer Date Recorded Do you have housing? 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 Amy Bermudez Freezing Room Worker [facility] - [facility] * Telephone Encounter - Sienna Wilder RN - 08/21/2024 3:57 PM CDT Called the number below. Spoke to Elizabeth from [facility], pressed option 5. The pt was seen while she was in patient at [facility]. They are asking us to place referrals [facility]. She saw mental health nurse practioner Brittney Burgess, , she saw her on 05/27/24. Thiswas at [facility]. The pt had another stay on 06/21/24 - she saw - Suman Win, at [facility] - mental health provider. She saw Maricel Dooley on 06/21/24, . This was also at [facility] - heis a hospitalist. Insurance is not paying for the visits, so that is why they are asking for the referral to [facility]. She said that they restricted pts have 90 days for retro for referrals. She wants us to fax the form to [facility]. Forms were started and placed in Dr. Mcclelland's in basket. Please complete forms. Will forward the message to Dr. Mcclelland. * Telephone Encounter - Merary Ricci - 08/21/2024 2:31 PM CDT Order/Referral Request Who is requesting: Darrian Orders being requested: needs post dated referral-for borderline personality disorder and PTSD Reason service is needed/diagnosis: PATIENT IS A RESTRICTED PATIENT When are orders needed by: as soon as possible Has this been discussed with Provider: Does patient have a preference on a Group/Provider/Facility? [facility] Does patient have an appointment scheduled?: Where to send orders: needs the referral sent to [facility] or would you prefer to receive a phone call?: No preference Okay to leave a detailed message?: Yes at Other phone number: [phone] documented in this encounter Plan of Treatment Upcoming Encounters Date Type Department Care Team (Late st Contact Info) Description 02/20/2025 10:20 AM CDT Appointment [facility] [address] [place] [address] Allyssa Justice MD [facility] [address] [place] [address] [place] [address] 02/27/2025 10:40 AM CDT Virtual Visit [facility] [address] [place] [address] [facility] [place] [address] Allyssa Justice MD [facility] [address] [place] [address] [place] [address] documented as of this encounter Visit Diagnoses Not on file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 Assessment Noted Time PHQ-9 Depression Total Score: 4 02/21/20 24 1:54 PM CDT documented as of this encounter Care Teams Bobcat Driver/Labor Relationship Specialty Start [place] [address] [address] PCP - General Family Medicine 04/22/23 [place] [address] [address] [address] Assigned Pain Medication Provider 12/07/22 [place] [address] [address] [address] Assigned PCP 01/23/23 [place] [address] [place] [address] Assigned Musculoskeletal Provider 01/23/23 09/19/24 Kingsley Garcia MD [address] [place] 917895 Assigned Heart and Vascular Provider 08/07/23 [place] [address] [address] [address] Family Medicine 09/10/23 Master Shea PA-C [address] [place] [address] Physician Bilingual Counter Sales Retail Gastroenterology 09/10/23 Allyssa Justice MD [facility] [address] [place] [address] Hematology & Oncology 12/10/23 Genaro Christian MD [address] [place], [place] [address]475 Cardiovascular Disease 12/22/23 Master Shea PA-C [address] [place] [address] Assigned Gastroenterology Provider 12/23/23 Sienna Guillermo DO [address] [place] [address] Physician Cardiovascular Disease 01/18/24 Allyssa Justice MD [facility] [address] [address] [place] 278435 Assigned Cancer Care Provider 03/21/24 Declan Leavitt MD [address] [place] 300265 Assigned Surgical Provider 07/21/24 documented as of this encounter
--- OUTSIDE RECORDS SUMMARY | 2024-09-21 22:40 | XMS_ITS | Encounter Summary ---
Author Organization [facility] Address [address] [place] [address] Care Team Providers Care Fixed Interest Dealer Name Role Phone Segundo Mcclelland MD Unavailable [phone] Segundo Mcclelland MD Unavailable [phone] Qamar Jackson MD Unavailable Segundo Mcclelland MD Primary Care Provider + Kingsley Garcia MD Unavailable + [phone] Segundo Mcclelland MD Unavailable [phone] Master Shea PA-C Unavailable Allyssa Justice MD Unavailable [phone] Genaro Christian MD Unavailable [phone] Master Shea PA-C Unavailable Sienna Guillermo DO Unavailable [phone] Allyssa Justice MD Unavailable [phone] Declan Leavitt MD Unavailable Reason for Referral * Diagnostic Imaging XR (Routine) - Pending Review Specialty Diagnoses / Procedures Referred By Contac t Referred To Contact Radiology. Diagnoses Intracranial hypotension Procedures XR Blood Patch Procedure Ugo Ochoa MD [address] [place] [address] Phone: tel: fax: Referral ID Status Reason Start Date Expiration Date V isits Requested Visits Authorized [id number] Pending Review 08/22/2024 08/22/2025 1 1 Reason for Visit * Reason Comments New Patient * Consultation (Priority: 1-2 Weeks) - Pending Review Specialty Diagnoses / Procedures Referred By Contac t Referred To Contact Diagnoses Altered mental status, unspecified altered mental status type Pennie Bernal MD [address] [place] [address] Phone: tel: fax: Referral ID Status Reason Start Date Expiration Date V isits Requested Visits Authorized [id number] Pending Review 07/19/2024 07/19/2025 1 1 Encounter Details Date Type Department Care Team (Late st Contact Info) Description 08/22/2024 1:00 PM CDT Office Visit [facility] [address] [address] Pennie Bernal MD [address] [place] [address] [phone] Ugo Ochoa MD [address] [place] [address] [phone] Intracranial hypotension (Primary Dx); Episode of transient neurologic symptoms Social History Tobacco Use Types Packs/Day Years [...] AM CDT Legal Sex Female 3:29 AM ROLLER Gender Identity Female 05/26/2021 10:37 AM CDT Sexual Orientation Straight 05/26/2021 10 :37 AM CDT Occupation Industry Job Start Date Job End Date unemployed Not on file Not on file Not on file Not on file Not on file Not on file Not on file documented as of this encounter Last Filed Vital Signs Vital Sign Reading Time Taken Comments Blood Pressure 118/78 08/22/2024 12:44 PM CDT Pulse 91 08/22/2024 12:44 PM CDT Temperature - - Respiratory Rate - - Oxygen Saturation - - Inhaled Oxygen Concentration - - Weight 102.4 kg (225 lb 12 oz) 08/22/2024 12:44 PM CDT Height - - Body Mass Index 36.44 08/13/2024 9:01 PM CDT documented in this encounter Patient Instructions * Patient Instructions* Ugo Ochoa MD - 08/22/2024 1:00 PM CDT [email or web address] - This is a website that talks about functional neurological disorders including psychogenic non-epileptic spells documented in this encounter Progress Notes * Ugo Ochoa MD - 08/22/2024 1:00 PM CDT Images from the original note were not included. [facility] Neurology Consultation Sandi Lopez Age: [age] year old Date of : 1985 Requesting physician: Segundo Muniz Reason for Consultation: episodic neurological symptoms, headaches, abnormal MRI Assessment and Plan: Assessment: Sandi Lopez is a 38 year old female who presents today for evaluation of headaches and episodic neurological symptoms. 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 EEG would be low yield at this time, but should be considered if she continues to have episodes. MRI brain was reviewed. There are nonspecific white matter changes. Given that history at this time is not suggestive of multiple sclerosis I would not recommend additional testing for this at this time. MRI brain also commented on diffuse pachymeningeal enhancement, which could be seen in the setting of intracranial hypotension. Patient reports news neck pain / headaches over the last few months. Thus, symptoms could be related to CSF leak / intracranial hypotension. Recent MRI scans of the entirespine did not comment on obvious source of leak. We will do epidural blood patch trial. If this is not helpful we could consider repeating spine MRIs with contrast. Plan: - Epidural blood patch - Consider additional work-up pending above Follow up in Neurology clinic pending above Ugo Ochoa MD Milk Deliverer of Neurology [facility] History of Presenting Symptoms: Sandi Lopez is a 38 year old female who presents today for evaluation of headaches and episodic neurological symptoms. Patient remembers sitting in the shower. She remembers not being able to feel the left side of the body. She was unable to speak. She was brought to the ER. She was able to write in the ER, but couldn't talk. Eventually about 4.5 hours later she started to feel better. Since then she reports that once she woke up from sleeping and couldn't move at all bilaterally anddiffusely. She thinks she couldn't talk. This lasted about 3 minutes. She reports headache in the back of her neck. They have more pronounced the last 2 months. It is inthe back of the head and across the forehead. There is a constant level. It is worse with movement.It is not set off by light. There isn't clearly a positional component. She previously had surgery on the lower back around [id number]. She has issues with numbness/tingling in the left leg since then. She gets shooting pains in the left hand, but not numbness/tingling. She reports seizures during that stopped after delivery. These were full body shaking. She reports migraines as a teenager. Patient has had frequent episodes of passing out frequently. This occurs when she stands up suddenly. She will feel a cold feeling and then she'll pass out. She'll wake up in less than 1-2 minutes. She has history of POTS and was previously on Florinef and Midodrine. Past Medical History: Patient Active Problem List Diagnosis Eating disorder Dysthymic disorder Dysplasia of cervix Allergic rhinitis Postural orthostatic tachycardia (POTS) Dysmenorrhea Low back pain CARDIOVASCULAR SCREENING; LDL GOAL LESS THAN 160 Abdominal pain Anorexia Ureteral stone LFT elevation GI bleed CARRENO (headache) Hematemesis Kathleen-Mustafa tear Anemia due to blood loss, acute History of asthma Anxiety Shortness of breath Candidiasis of mouth Positive blood culture Chronic pain of both knees Intractable nausea and vomiting Nausea and vomiting, unspecified vomiting type Wheezing Epigastric pain Near syncope Acute kidney injury (H24) F11.2 - Episodic opioid dependence (H) Dehydration CANELO (acute kidney injury) (H24) Problem with vascular access Postural dizziness with near syncope POTS (postural orthostatic tachycardia syndrome) Mixed personality disorder (H) Borderline personality disorder (H) Chronic narcotic use Drug-seeking behavior Gastric ulcer with hemorrhage Gastroesophageal reflux disease Insomnia Intertrigo Left lumbar radiculopathy Major depressive disorder, single episode PID (pelvic inflammatory disease) Pleuritic chest pain Positive D dimer Post-op pain contractions Psychiatric diagnosis deferred Psychogenic nonepileptic seizure Pulmonary nodules Suspected COVID-19 virus infection Tightness in chest Transaminitis Bacteremia Posttraumatic stress disorder Port-A-Cath in place Psychiatric disturbance Low folate Anemia, iron deficiency UTI (urinary tract infection) Dysuria Fungemia Lightheadedness Elevated procalcitonin Chronic anemia Orthostatic syncope Anemia Syncope, unspecified syncope type Anemia, unspecified type Acute embolism and thrombosis of deep veins of right upper extremity (H) Hypokalemia Back pain PICC (peripherally inserted central catheter) in place Anticoagulated Hematemesis with nausea Chest pain, unspecified type Past Medical History: Diagnosis Date Abnormal Pap smear Aniwa/2 LEEPs age 16 Allergic rhinitis Anemia 2012 with Atrial flutter Borderline personality disorder Continuous opioid dependence Depressive disorder Drug-seeking behavior and Malingering Dysthymic disorder Eating disorder Fertility problem 2010 Clomid and IUI Gastro-oesophageal reflux disease Gastroparesis H/o Seizure as child as child, none since History of blood transfusion recieves benadryl with transfusions d/t previous reactions Hypertension 05/08/23 Intermittent asthma Kidney stone Kathleen-Mustafa tear Mild persistent asthma Obesity Osteomyelitis of lumbar spine 2023 PICC (peripherally inserted central catheter) in place 04/11/[address] Garrett. PICC line should not be removed for any reason. An IR consult should be placed first. Postural orthostatic tachycardia syndrome 2004 Psychogenic nonepileptic [...] Procedure: ESOPHAGOGASTRODUODENOSCOPY; Surgeon: Meg Lee MD; Location: [facility]; Service: ESOPHAGOSCOPY, GASTROSCOPY, DUODENOSCOPY (EGD), COMBINED N/A 02/13/2016 Procedure: ESOPHAGOGASTRODUODENOSCOPY; Surgeon: Meg Lee MD; Location: [facility] OR; Service: ESOPHAGOSCOPY, GASTROSCOPY, DUODENOSCOPY (EGD), [...] CONTROLLED EPITAXIS; Surgeon: Declan Mata MD; Location: [facility]; Service: OOPHORECTOMY Right REMOVE PORT VASCULAR ACCESS N/A 04/07/2024 Procedure: Basilic vein midline catheter placment and port removal; Surgeon: Malia Garrett DO; Location: [facility] OR Talar fracture lt foot surgery 10/1998 TONSILLECTOMY & ADENOIDECTOMY 1995 TRANSESOPHAGEAL ECHOCARDIOGRAM INTRAOPERATIVE N/A 09/17/2021 Procedure: ECHOCARDIOGRAM, TRANSESOPHAGEAL, INTRAOPERATIVE; Surgeon: GENERIC ANESTHESIA PROVIDER; Location: [facility] OR TUBAL LIGATION Social History: Social History Tobacco Use Smoking status: Never Passive exposure: Never Smokeless tobacco: Never Vaping Use Vaping status: Never Used Substance Use Topics Alcohol use: Not Currently Comment: none for 1 year Drug use: No Family History: Family History Problem Relation Age of Onset Breast Cancer Mother Other Cancer Mother uterine cacer Depression Mother Obesity Mother Colon Cancer Father Depression Father Substance Abuse Father Alcoholic Obesity Father Diabetes Paternal Grandmother Cancer - colorectal Paternal Grandfather , diagnosed in 50's, at 54 Diabetes Other Medications: Current Outpatient Medications Medication Sig Dispense Refill apixaban ANTICOAGULANT (ELIQUIS) 5 MG tablet Take 1 tablet (5 mg) by mouth 2 times daily (Patient not taking: Reported on 06/28/2024) 180 tablet 1 childrens multivitamin w/iron (FLINTSTONES COMPLETE) chewable tablet Take 1 chew tab by mouth daily diphenhydrAMINE (BENADRYL) 50 MG/ML injection Inject 0.5 mLs (25 mg) into the vein every 6 hours asneeded for other (Patient not taking: Reported on 06/28/2024) 30 mL 1 EPINEPHrine (ANY BX GENERIC EQUIV) 0.3 MG/0.3ML injection 2-pack Inject 0.3 mLs (0.3 mg) into the muscle once as needed for anaphylaxis (Patient not taking: Reported on 06/28/2024) 1 each 0 FE-JOSE ALBERTO IRON 75 (15 Fe) MG/ML oral drops TAKE 5 MLS (75 MG) BY MOUTH DAILY 50 mL 1 fluconazole (DIFLUCAN) 200 MG tablet Take 1 tablet (200 mg) by mouth three times a week (Patient not taking: Reported on 06/28/2024) 18 tablet 0 folic acid (FOLVITE) 400 MCG tablet Take 1 tablet (400 mcg) by mouth daily 90 tablet 1 gabapentin (NEURONTIN) 800 MG tablet Take 800 mg by mouth 3 times daily HYDROmorphone (DILAUDID) 4 MG tablet Take 1 tablet (4 mg) by mouth every 6 hours as needed for severe pain. 10 tablet 0 LORazepam (ATIVAN) 1 MG tablet Take 1 mg by mouth every 6 hours as needed for anxiety naloxone (NARCAN) 4 MG/0.1ML nasal spray [place] 4 mg into one nostril alternating nostrils once as needed for opioid reversal (Patient not taking: Reported on 06/28/2024) pantoprazole (PROTONIX) 40 MG EC tablet Take 40 mg by mouth daily sodium chloride 0.9% infusion Inject 1,000 mLs into the vein as needed for other (Wednesday with IV antibiotic) (Patient not taking: Reported on 06/28/2024) 68725 mL 0 sucralfate (CARAFATE) 1 GM tablet Take 1 tablet (1 g) by mouth 4 times daily 120 tablet 1 zolpidem (AMBIEN) 10 MG tablet Take 10 mg by mouth At Bedtime No current facility-administered medications for this visit. Allergies: Allergies Allergen Reactions Chlorhexidine Itching and Swelling Droperidol Swelling seizures, tongue swelling Nsaids Anaphylaxis Sulfa Antibiotics Anaphylaxis SOB, swelling-fingers Compazine [Prochlorperazine] Other (See Comments) Muscle twitching Metoclopramide Other (See Comments) Muscle twitching w IV only; tolerates oral fine Olanzapine Muscle twitching Phenergan [Promethazine] Muscles twitch on own, pt freaks out Phenothiazines Anxiety and Muscle Pain (Myalgia) Dystonic reaction, delirium Metoclopramide Hcl Venofer [Iron Sucrose] Allergic reaction, nausea, fever Zofran [Ondansetron Hcl] Other (See Comments) Pt does not want to receive. She reports trouble breathing, flushing, itching, long QT Contrast Dye Hives, Itching and Cough Pt can tolerate if given 25 mg benadryl PIV prior to contrast Hydroxyzine Palpitations Reports HR into the 160's Review of Systems: As above Physical Exam: Vitals: BP 118/78 (BP Location: Right arm, Patient Position: Sitting, Cuff Size: Adult Large) Pulse 91 Wt 102.4 kg (225 lb 12 oz) LMP 12/10/2017 BMI 36.44 kg/m?? BP sitting 117/84 HR 94 / standing 4 minutes BP 137/90 HR 121 General: Seated comfortably in no acute distress. HEENT: Optic discs appear sharp on funduscopic exam. Lungs: breathing comfortably Neurologic: Mental Status: Fully alert, attentive. Language normal, speech clear and fluent, no paraphasic errors. Cranial Nerves: Visual starks intact. PERRL. EOMI with normal smooth pursuit. Facial sensation intact/symmetric. Facial movements symmetric. Hearing not formally tested but intact to conversation. Palate elevation symmetric, uvula midline. No dysarthria. Shoulder shrug strong bilaterally. Tongue protrusion midline. Motor: No tremors or other abnormal movements observed. Muscle tone normal throughout. Strength 5/5throughout upper and lower extremities. Deep Tendon Reflexes: 2+/symmetric throughout upper and lower extremities. No clonus. Toes downgoing bilaterally. Sensory: Decreased sensation to light touch in portions of the left foot and lateral left barbour. Temperature sensation is decreased in the feet compared to hands. Vibration sensation is intact throughout. Negative Romberg. Coordination: Gwrihn-zjik-jnnahv and heel-barbour intact without dysmetria. Gait: Steady casual gait. Mild issues with heel, toe, and tandem. Data: Pertinent prior to visit Imaging: MRI brain 06/2024 IMPRESSION: 1. No acute/subacute infarct, mass, acute hemorrhage or abnormal extra-axial fluid collection. 2. Mild scattered nonspecific foci [...] and CSF sampling for further assessment. 3. Subtle diffuse dural thickening and enhancement. This finding is nonspecific and may be idiopathic however other etiologies include infection/inflammation, dural-based metastases, intracranial hypotension, or recent neurosurgical intervention (including lumbar puncture). Comparison to MRI scan in 2012 on the left MRI cervical 06/2024 IMPRESSION: 1. Straightening of the usual cervical lordosis. 2. Otherwise unremarkable. MRI thoracic 06/2024 IMPRESSION: 1. Unremarkable MRI thoracic spine. MRI lumbar 06/2024 CONCLUSION: 1. No previous left hemilaminectomy. Mild lumbar spondylosis. No canal or foraminal narrowing. 2. No acute fracture. 3. Moderate degenerative disc disease L5-S1 MRI brain 2012 Impression: Continued effaced cerebral sulci and partially effaced lateral and third ventricles. Subtle leptomeningeal enhancement and FLAIR hyperintense signal along the sulci are suggestive of meningeal irritation/ early infection, ie meningitis. No imaging finding to suggest Herpes Encephalitis. The total time of this encounter today amounted to 82 minutes. This time included time spent with the patient, prep work, ordering tests, and performing post visit documentation. documented in this encounter Plan of Treatment Upcoming Encounters Date Type Department Care Team (Late st Contact Info) Description 02/20/2025 10:20 AM CDT Appointment [facility] Imaging [address] [place] [address] Allyssa Justice MD [facility] [address] [place] [address] 02/27/2025 10:40 AM CDT Virtual Visit [facility] [address] [facility] [place] [address] Allyssa Justice MD [facility] [address] [place] [address] Scheduled Orders Name Type Priority Associated Diagnoses Orde r Schedule XR Blood Patch Procedure Imaging Routine Intracranial hypotension Expected: 08/22/2024 (Approximate), Expires: 08/22/2025 documented as of this encounter Visit Diagnoses Diagnosis Intracranial hypotension- Primary Other conditions of brain Episode of transient neurologic symptoms Other symptoms involving nervous and musculoskeletal systems 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 Assessment Noted Time PHQ-9 Depression Total Score: 4 02/21/20 1:54 PM CDT documented as of this encounter Care Teams Fixed Interest Dealer Relationship Specialty Start [place] [address] [address] [place] [address] PCP - General Family Medicine 04/22/23 [place] [address] [address] Assigned Pain Medication Provider 12/07/22 [place] [address] [address] [address] Assigned PCP 01/23/23 [place] [address] [place] [address] Assigned Musculoskeletal Provider 01/23/23 09/19/24 Kingsley Garcia MD [address] [place] [address] Assigned Heart and Vascular Provider 08/07/23 [place] [address] [place] [address] Family Medicine 09/10/23 Master Shea PA-C [address] [place] [address] Physician Hydraulic Mechanic Gastroenterology 09/10/23 Allyssa Justice MD [facility] [address] [place] [id number] Hematology & Oncology 12/10/23 Genaro Christian MD [address] [place] [address] 556295 MD Cardiovascular Disease 12/22/23 Master Shea PA-C [address] [place] [address] Assigned Gastroenterology Provider 12/23/23 Sienna Guillermo DO [address] [place] [address]8025 Physician Cardiovascular Disease 01/18/24 Allyssa Justice MD [facility] [address] [place] 606385 Assigned Cancer Care Provider 03/21/24 Declan Leavitt MD [address] [place] 057885 Assigned Surgical Provider 07/21/24 documented as of this encounter
--- OUTSIDE RECORDS SUMMARY | 2024-09-21 22:40 | XMS_ITS | Encounter Summary ---
Author Organization [facility] Address [address] [place] [address] Care Team Providers Care Seo Marketing Specialist Name Role Phone Segundo Mcclelalnd MD Unavailable [phone] Segundo Mcclelland MD Unavailable [phone] Qamar Jackson MD Unavailable Segundo Mcclelland MD Primary Care Provider + Kingsley Garcia MD Unavailable [phone] Segundo Mcclelland MD Unavailable [phone] Master Shea PA-C Unavailable Allyssa Justice MD Unavailable [phone] Genaro Christian MD Unavailable [phone] Master Shea PA-C Unavailable Sienna Guillermo DO Unavailable [phone] Allyssa Justice MD Unavailable [phone] Declan Leavitt MD Unavailable Encounter Details Date Type Department Care Team (Latest Contact Info) Description 08/13/2024 Travel Social History Tobacco Use Types Packs/Day [...] AM CDT Legal Sex Female 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 Gender Identity Female 05/26/2021 10:37 AM CDT [...] Info) Description 02/20/2025 10:20 AM CDT Appointment [facility] Imaging [address] [place] [address] Allyssa Justice MD [facility] [address] [place] [address] 02/27/2025 10:40 AM CDT Virtual Visit [facility] [address] [facility] [place] [phone] Allyssa Justice MD [facility] [address] [place] [address] documented as of this encounter Visit Diagnoses Not on file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 Assessment Noted Time PHQ-9 Depression Total Score: 4 02/21/20 1:54 PM CDT documented as of this encounter Care Teams Seo Marketing Specialist Relationship Specialty Start [place] [address] [address] PCP - General Family Medicine 04/22/23 [place] [address] [address] [address] Assigned Pain Medication Provider 12/07/22 [place] [address] [address] [address] Assigned PCP 01/23/23 [place] [address] [place] [address] Assigned Musculoskeletal Provider 01/23/23 09/19/24 Kingsley Garcia MD [address] [place] [address] Assigned Heart and Vascular Provider 08/07/23 [place] [address] [place] [address] Family Medicine 09/10/23 Master Shea PA-C [address] [place] [address] Physician Park Maintainer Gastroenterology 09/10/23 Allyssa Justice MD [facility] [address] [place] 252175 Hematology & Oncology 12/10/23 Genaro Christian MD [address] [place] [address] [id number] Cardiovascular Disease 12/22/23 Master Shea PA-C [address] [place] [address] Assigned Gastroenterology Provider 12/23/23 Sienna Guillermo DO [address] [place] [id number] Physician Cardiovascular Disease 01/18/24 Allyssa Justice MD [facility] [address] [place] 793685 Assigned Cancer Care Provider 03/21/24 Declan Leavitt MD [address] [place] 744515 Assigned Surgical Provider 07/21/24 documented as of this encounter
--- OUTSIDE RECORDS SUMMARY | 2024-09-21 22:40 | XMS_ITS | Encounter Summary ---
Author Organization [place] Address [address] [place] [address] Care Team Providers Care Industrial Engineering Director Name Role Phone Segundo Mcclelland MD Unavailable [phone] Segundo Mcclelland MD Unavailable [phone] Qamar Jackson MD Unavailable Segundo Mcclelland MD Primary Care Provider + Kingsley Garcia MD Unavailable + [phone] Segundo Mcclelland MD Unavailable +[phone] Master Shea PA-C Unavailable Allyssa Jutsice MD Unavailable [phone] Genaro Christian MD Unavailable [phone] Master Shea PA-C Unavailable Sienna Guillermo DO Unavailable +[phone] Allyssa Justice MD Unavailable [phone] Declan Leavitt MD Unavailable Encounter Details Date Type Department Care Team (Latest Contact Info) Description 08/03/2024 Travel Social History Tobacco Use Types Packs/Day [...] AM CDT Legal Sex Female 3:29 AM 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 ASSISTANT PROFESSOR Gender Identity Female 05/26/2021 10:37 AM CDT [...] Info) Description 02/20/2025 10:20 AM CDT Appointment [facility] [address] [place] [address] Allyssa Justice MD [facility] [address] [place] [address] [place] [address] 02/27/2025 10:40 AM CDT Virtual Visit [facility] [address] [place] [address] [facility] Medical Ctr [place] [phone] Allyssa Justice MD [facility] [address] [place] [address] [place] [place] [address] documented as of this encounter Visit Diagnoses Not on file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 Assessment Noted Time PHQ-9 Depression Total Score: 4 02/21/20 1:54 PM CDT documented as of this encounter Care Teams Industrial Engineering Director Relationship Specialty Start [place] [address] [address] [address] PCP - General Family Medicine 04/22/23 [place] [address] [address] [address] Assigned Pain Medication Provider 12/07/22 [place] [address] [address] [address] Assigned PCP 01/23/23 [place] [address] [place] [address] Assigned Musculoskeletal Provider 01/23/23 09/19/24 Kingsley Garcia MD [address] [place] [address] Assigned Heart and Vascular Provider 08/07/23 [place] [address] [place] [address] Family Medicine 09/10/23 Master Shea PA-C [address] [place] [place] [address] Physician Wet Primer Powder Blender Gastroenterology 09/10/23 Allyssa Justice MD [facility] [address] [place] [address] [place] 919705 Hematology & Oncology 12/10/23 Genaro Christian MD [address] [place] [address] 076785 Cardiovascular Disease 12/22/23 Master Shea PA-C [address] [place] [place] [address] Assigned Gastroenterology Provider 12/23/23 Sienna Guillermo DO [address] [place] 871415 Physician Cardiovascular Disease 01/18/24 Allyssa Justice MD [facility] [address] [address] [place] [place] 875335 Assigned Cancer Care Provider 03/21/24 Declan Leavitt MD [address] [place] 663325 Assigned Surgical Provider 07/21/24 documented as of this encounter
--- OUTSIDE RECORDS SUMMARY | 2024-09-21 22:40 | XMS_ITS | Encounter Summary ---
Author Organization [place] Address [address] [place] [address] Care Team Providers Care Filter Filler Name Role Phone Segundo Mcclelland MD Unavailable [phone] Segundo Mcclelland MD Unavailable [phone] Qamar Jackson MD Unavailable Segundo Mcclelland MD Primary Care Provider + Kingsley Garcia MD Unavailable + [phone] Segundo Mcclelland MD Unavailable [phone] Master Shea PA-C Unavailable Allyssa Justice MD Unavailable [phone] Genaro Christian MD Unavailable + [phone] Master Shea PA-C Unavailable Sienna Guillermo DO Unavailable [phone] Allyssa Justice MD Unavailable [phone] Declan Leavitt MD Unavailable Reason for Visit * Reason Onset Date Comments Physician Communication 08/14/2024 Encounter Details Date Type Department Care Team (Late st Contact Info) Description 08/14/2024 [facility] [address] [place] [phone] [place] [address] [employer] [address] [place], [place] [id number] Physician Communication Social History Tobacco Use Types Packs/Day Years [...] in an abandoned building, in an overnight fci, or couch-surfing.) Yes 08/26/2023 Are you worried [...] AM CDT 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 Gender Identity Female 05/26/2021 10:37 AM CDT Sexual Orientation Straight 05/26/2021 10 :37 AM CDT Occupation Industry Job Start Date Job End Date unemployed Not on file Not on file Not on file Not on file Not on file Not on file Not on file documented as of this encounter Miscellaneous Notes * Telephone Encounter - Farrah Santiago, RN - 08/14/2024 11:50 AM CDT Receive call from Mary Jane Echavarria - VP RESEARCH with [facility] Psychiatry Mary Jane is meeting with patient at 1pm and is hoping to touch base with patient's PCP prior to meeting to discuss patient's care and recent ER visit. Please call Mary Jane at [phone] if possible. Farrah Nelson RN 08/14/2024 at 11:54 AM documented in this encounter Plan of Treatment Upcoming Encounters Date Type Department Care Team (Late st Contact Info) Description 02/20/2025 10:20 AM CDT Appointment [facility] Imaging [address] [place] [place] [phone] Allyssa Justice MD [facility] [address] [place] [address] 02/27/2025 10:40 AM CDT Virtual Visit [facility] [address], [address] [address] [facility] Medical Ctr [place] [phone] Allyssa Justice MD [facility] [address] [place] [address] documented as of this encounter Visit Diagnoses Not on file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 Assessment Noted Time PHQ-9 Depression Total Score: 4 02/21/20 24 1:54 PM CDT documented as of this encounter Care Teams Filter Filler Relationship Specialty Start [place] [address] [address] [address] PCP - General Family Medicine 04/22/23 [place] [address] [address] 5089568 Assigned Pain Medication Provider 12/07/22 [place] [address] [address] [address] Assigned PCP 01/23/23 [place] [address] [place] [address] Assigned Musculoskeletal Provider 01/23/23 09/19/24 Kingsley Garcia MD [address] [place] 662555 Assigned Heart and Vascular Provider 08/07/23 [place] [address] [address] [address] Family Medicine 09/10/23 Master Shea PA-C [address] [place] [address] Physician Associate Technician Gastroenterology 09/10/23 Allyssa Justice MD [facility] [address] [place] 110[address] Hematology & Oncology 12/10/23 Genaro Christian MD [address] [place], [place] 871715 Cardiovascular Disease 12/22/23 Master Shea PA-C [address] [place] [address] Assigned Gastroenterology Provider 12/23/23 Sienna Guillermo DO [address] [place] [address] Physician Cardiovascular Disease 01/18/24 Allyssa Justice MD [facility] [address] [address] [place] [place] [address] Assigned Cancer Care Provider 03/21/24 Declan Leavitt MD [address] [address] [place] [address] Assigned Surgical Provider 07/21/24 documented as of this encounter
--- OUTSIDE RECORDS SUMMARY | 2024-09-21 22:40 | XMS_ITS | Encounter Summary ---
Author Organization [place] Address [address] [place] [address] Care Team Providers Care Assistant Spa Director Name Role Phone Segundo Mcclelland MD Unavailable [phone] Segundo Mcclelland MD Unavailable [phone] Qamar Jackson MD Unavailable Segundo Mcclelland MD Primary Care Provider + Kingsley Garcia MD Unavailable + [phone] Segundo Mcclelland MD Unavailable [phone] Master Shea PA-C Unavailable Allyssa Justice MD Unavailable [phone] Genaro Christian MD Unavailable [phone] Master Shea PA-C Unavailable Sienna Guillermo DO Unavailable [phone] Allyssa Justice MD Unavailable [phone] Declan Leavitt MD Unavailable Encounter Details Date Type Department Care Team (Late st Contact Info) Description 08/03/2024 [facility] [address] [place] [address] [place] [address] [place] [address] Social History Tobacco Use Types Packs/Day Years [...] in an abandoned building, in an overnight mcc, or couch-surfing.) Yes 08/26/2023 Are you worried [...] AM CDT 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 Gifty Cunningham, Fuel Buyer- [place] [address] Primary Care- [facility] * Telephone Encounter - Segundo Mcclelland MD - 08/04/2024 11:05 AM CDT LM on Mary Jane's VM. Requesting she call back with a handful of times when I might reach her directly. Segundo Mcclelland MD * Telephone Encounter - Heidi Gómez RN - 08/03/2024 12:03 PM CDT Got a call from pt's psychiatrist Mary Jane Echavarria. Mary Jane and pt have been meeting at least once a month for 5-6 years. Adrian states they have a really good relationship and work well together but has some questions and concerns and was looking to speak with Dr Mcclelland about some questions and concerns she is having regarding pt: 1) Mary Jane states she understands that pt has an extensive and complicated medical history but would like to more. She is wondering what is currently being done with Sandi and what the treatment careplan is for the future. Mary Jane would like to know more about this to best assist pt with therapy andcompliancy. 2) Mary Jane states that she has noticed pt's anxiety increasing and is worried that this will make pt less compliant with providers and hospital staff. She states that she needs to know more about pt's current plan of care in order to help lessen pt's anxiety and help pt comply with staff. 3) Mary Jane was concerned about the overall care of the pt. Mary Jane states that she does not know whether this is true or if it was the pt's anxiety talking but pt informed Mary Jane that when she goes to theER, staff believes she is seeking medications or suspect that she is looking for drugs and do not listen to her appropriately. Mary Jane states that over the 5-6 years she has known this pt, she has never suspected that the pt would seek unnecessary drugs and pt gave no indications that she would. Mary Jane would like Dr. Mcclelland's take on this and is concerned that pt is not being listened to, therefore,enhancing pt's noncompliance. Routing to , Mary Jane would like to speak with you regarding these concerns. Let me know if you would like us to call her back or if you would like to speak with Mary Jane. Here is her contact information: Mary Jane Echavarria - [facility] #: [phone] Personal # (no PHI): [phone] documented in this encounter Plan of Treatment Upcoming Encounters Date Type Department Care Team (Late st Contact Info) Description 02/20/2025 10:20 AM CDT Appointment [facility] Imaging [address] [place] [phone] Allyssa Justice MD [facility] [address] [place] [address] [place] [place] [address] 02/27/2025 10:40 AM CDT Virtual Visit [facility] [address], [place] [address] [facility] Medical Ctr [place] [phone] Allyssa Justice MD [facility] [address] [address] [place] [place] 309395 documented as of this encounter Visit Diagnoses Not on file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 Assessment Noted Time PHQ-9 Depression Total Score: 4 02/21/20 24 1:54 PM CDT documented as of this encounter Care Teams Assistant Spa Director Relationship Specialty Start [place] [address] [address] [address] PCP - General Family Medicine 04/22/23 [place] [address] [address] [address] Assigned Pain Medication Provider 12/07/22 [place] [address] [address] [address] Assigned PCP 01/23/23 [place] [address] [place] [address] Assigned Musculoskeletal Provider 01/23/23 09/19/24 Kingsley Garcia MD [address] [place] 664445 Assigned Heart and Vascular Provider 08/07/23 [place] [address] [address] [address] Family Medicine 09/10/23 Master Shea PA-C [address] [place] [address] Physician Guest Service Representative Gastroenterology 09/10/23 Allyssa Justice MD [facility] [address] [address] [place] 477255 Hematology & Oncology 12/10/23 Genaro Christian MD [address] [place], [place] 275985 Cardiovascular Disease 12/22/23 Master Shea PA-C [address] [place] [address] Assigned Gastroenterology Provider 12/23/23 Sienna Guillermo DO [address] [place] [address] Physician Cardiovascular Disease 01/18/24 Allyssa Justice MD [facility] [address] [place] [address] Assigned Cancer Care Provider 03/21/24 Declan Leavitt MD [address] [address] [place] [address] Assigned Surgical Provider 07/21/24 documented as of this encounter
--- OUTSIDE RECORDS SUMMARY | 2024-09-21 22:40 | XMS_ITS | Encounter Summary ---
Author Organization [place] Address [address] [place] [address] Care Team Providers Care Return To Factory Clerk Name Role Phone Segundo Mcclelland MD Unavailable [phone] Segundo Mcclelland MD Unavailable [phone] Qamar Jackson MD Unavailable Segundo Mcclelland MD Primary Care Provider + Kingsley Garcia MD Unavailable + [phone] Segundo Mcclelland MD Unavailable [phone] Master Shea PA-C Unavailable Allyssa Justice MD Unavailable [phone] Genaro Christian MD Unavailable + [phone] Master Shea PA-C Unavailable Sienna Guillermo DO Unavailable [phone] Allyssa Justice MD Unavailable [phone] Declan Leavitt MD Unavailable Reason for Visit * Reason Comments Medication Refill Encounter Details Date Type Department Care Team (Late st Contact Info) Description [facility] [address] [place] [phone] [place] [address] [place] [place] [id number] Medication Refill Social History Tobacco Use Types [...] AM CDT 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 Gender Identity Female 05/26/2021 10:37 AM [...] Info) Description 02/20/2025 10:20 AM CDT Appointment [facility] Imaging [address] [place] [phone] Allyssa Justice MD [facility] [address] [place] 5[address] 02/27/2025 10:40 AM CDT Virtual Visit [facility] [address], [address] [facility] Medical Ctr [place] [phone] Allyssa Justice MD [facility] [address] [place] [address] documented as of this encounter Visit Diagnoses Diagnosis Anemia due to blood loss, acute Acute posthemorrhagic anemia 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 Assessment Noted Time PHQ-9 Depression Total Score: 4 02/21/20 24 1:54 PM CDT documented as of this encounter Care Teams Return To Factory Clerk Relationship Specialty Start [place] [address] [address] [address] PCP - General Family Medicine 04/22/23 [place] [address] [address] [address] Assigned Pain Medication Provider 12/07/22 [place] [address] [address] [address] Assigned PCP 01/23/23 [place] [address] [place] [address] Assigned Musculoskeletal Provider 01/23/23 09/19/24 Kingsley Garcia MD [address] [place] [address] Assigned Heart and Vascular Provider 08/07/23 [place] [address] [place] [address] Family Medicine 09/10/23 Master Shea PA-C [address] [place] [address] Physician Inspector Rag Sorting Gastroenterology 09/10/23 Allyssa Justice MD [facility] [address] [place] 8020[address] Hematology & Oncology 12/10/23 Genaro Christian MD [address] [place] [address] Cardiovascular Disease 12/22/23 Master Shea PA-C [address] [place] [address] Assigned Gastroenterology Provider 12/23/23 Sienna Guillermo DO [address] [place] [address] Physician Cardiovascular Disease 01/18/24 Allyssa Justice MD [facility] [address] [place] [address] Assigned Cancer Care Provider 03/21/24 Declan Leavitt MD [address] [place] [address] Assigned Surgical Provider 07/21/24 documented as of this encounter
--- OUTSIDE RECORDS SUMMARY | 2024-09-21 22:40 | XMS_ITS | Encounter Summary ---
Author Organization [place] Address [address] [place] [address] Care Team Providers Care Ground Wirer Name Role Phone Segundo Mcclelland MD Unavailable [phone] Segundo Mcclelland MD Unavailable [phone] Qamar Jackson MD Unavailable Segundo Mcclelland MD Primary Care Provider + Kingsley Garcia MD Unavailable Segundo Mcclelland MD Unavailable [phone] Master Shea PA-C Unavailable Allyssa Justice MD Unavailable [phone] Genaro Christian MD Unavailable [phone] Master Shea PA-C Unavailable Sienna Guillermo DO Unavailable [phone] Allyssa Justice MD Unavailable [phone] Declan Leavitt MD Unavailable Ugo Ochoa MD Unavailable Encounter Details Date Type Department Care Team (Late st Contact Info) Description 08/30/2024 Hospital Encounter [facility] [address] [place] [address] [place] [address] Ugo Ochoa MD [address] [place] [address] Social History Tobacco Use Types Packs/Day Years [...] in an abandoned building, in an overnight residential, or couch-surfing.) Yes 08/26/2023 Are you worried [...] AM CDT 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 Gender Identity Female 05/26/2021 10:37 AM CDT [...] 02/20/2025 10:20 AM CDT Appointment [facility] Imaging [address] [place] [phone] Allyssa Justice MD [facility] [address] [place] [address] 02/27/2025 10:40 AM CDT Virtual Visit [facility] [place] [address], [address] [facility] Medical Ctr [place] [phone] Allyssa Justice MD [facility] [address] [place] [address]67[address] documented as of this encounter Visit Diagnoses Not on file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 Assessment Noted Time PHQ-9 Depression Total Score: 4 02/21/20 24 1:54 PM CDT documented as of this encounter Care Teams Ground Wirer Relationship Specialty Start [place] [address] [address] [address] PCP - General Family Medicine 04/22/23 [place] [address] [address] [address] Assigned Pain Medication Provider 12/07/22 [place] [address] [address] [address] Assigned PCP 01/23/23 [place] [address] [place] [address] Assigned Musculoskeletal Provider 01/23/23 09/19/24 Kingsley Garcia MD [address] [place] [address] Assigned Heart and Vascular Provider 08/07/23 [place] [address] [place] [address] Family Medicine 09/10/23 Master Shea PA-C [address] [place] [address] Physician Slurry Control Operator Helper Gastroenterology 09/10/23 Allyssa Justice MD [facility] [address] [place] [address] Hematology & Oncology 12/10/23 Genaro Christian MD [address] [place] [address] Cardiovascular Disease 12/22/23 Master Shea PA-C [address] [place] [address] Assigned Gastroenterology Provider 12/23/23 Sienna Guillermo DO [address] [place] [address] Physician Cardiovascular Disease 01/18/24 Allyssa Justice MD [facility] [address] [address] [place] [address] Assigned Cancer Care Provider 03/21/24 Declan Leavitt MD [address] [place] [address] Assigned Surgical Provider 07/21/24 Ugo Ochoa MD [address] [place], [place] 159985 Assigned Neuroscience Provider 09/20/24 documented as of this encounter
--- OUTSIDE RECORDS SUMMARY | 2024-09-21 22:40 | XMS_ITS | Encounter Summary ---
Author Organization [facility] Address [address] [place] [address] Care Team Providers Care Coal Trimmer Machine Operator Name Role Phone Segundo Mcclelland MD Unavailable [phone] Segundo Mcclelland MD Unavailable [phone] Qamar Jackson MD Unavailable Segundo Mcclelland MD Primary Care Provider + Kingsley Garcia MD Unavailable + [phone] Segundo Mcclelland MD Unavailable [phone] Master Shea PA-C Unavailable Allyssa Justice MD Unavailable [phone] Genaro Christian MD Unavailable [phone] Master Shea PA-C Unavailable Sienna Guillermo DO Unavailable [phone] Allyssa Justice MD Unavailable [phone] Declan Leavitt MD Unavailable Reason for Visit * Reason Comments Dental Problem Nausea & Vomiting Encounter Details Date Type Department Care Team (Late st Contact Info) Description 08/13/2024 9:03 PM CDT - 08/13/2024 11:[address] 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 Gender Identity Female 05/26/2021 10:37 AM CDT Sexual Orientation Straight 05/26/2021 10 :37 AM CDT Occupation Industry Job Start Date Job End Date unemployed Not on file Not on file Not on file Not on file Not on file Not on file Not on file documented as of this encounter Last Filed Vital Signs Vital Sign Reading Time Taken Comments Blood Pressure 148/99 08/13/2024 9:01 PM CDT Pulse 139 08/13/2024 9:01 PM CDT Temperature 36.9 ??C (98.5 ??F) 08/13/2024 9:01 PM CD T Respiratory Rate 18 08/13/2024 9:01 PM CDT Oxygen Saturation 98% 08/13/2024 9:01 PM CDT Inhaled Oxygen Concentration - - Weight 112.3 kg (247 lb 9.2 oz) 08/13/2024 9:01 PM CDT Height 167.6 cm (5' 6) 08/13/2024 9:01 PM CDT Body Mass Index 39.96 08/13/2024 9:01 PM CDT documented in this encounter Discharge Instructions * Discharge Instructions* Livia Gutierrez MD - 08/13/2024 11:40 PM CDT Discharge Instructions Dental Pain You [...] anxiety naloxone (NARCAN) 4 MG/0.1ML nasal spray [place] 4 mg into one nostril alternating nostrils once as needed for opioid reversal 06/28/2023 pantoprazole (PROTONIX) 40 MG EC tablet Take 40 mg by mouth daily sodium chloride 0.9% infusionIndication s:Gastroparesis Inject 1,000 mLs into the vein as needed for other (Wednesday with IV antibiotic) 97746 mL 06/02/2024 sucralfate (CARAFATE) 1 GM tabletIndications: [...] MOUTH DAILY 50 mL 1 08/08/2024 4 documented as of this encounter ED Notes * Livia Gutierrez MD - 08/13/2024 9:32 PM CDT Emergency Department Note History of Present Illness Chief Complaint Dental Problem and Nausea & Vomiting HPI Sandi Lopez is a 38 year old female with a history including chronic underlying illness, drug-seeking behavior, ED recidivism, borderline personality disorder, and factitious disorder who presents to the ED for evaluation of dental pain. The patient reports she broke a tooth in her upper right jaw on a flight to [place] on 07/21. [place]. 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 she was seen in the ED again on 08/04, where she was prescribed augmentin. She still on Augmentin, and has 1 day left. She states that her pain has not gone away. She was unable to see an oral surgeon due to the up front fee. Independent Historian None Review of External Notes Reviewed patient's ED visit from 08/04/2024 for chronic dental pain. No signs of sepsis. White blood cell count was not elevated. She was placed on Augmentin. She refused dental block at that time. Reviewed patient's ED visit from 08/02/2024 for dental infection. No signs of systemic infection or abscess at that visit. Past Medical History Medical History and Problem [...] Talar fracture foot surgery Tonsillectomy and adenoidectomy Transesophag Physical Exam Patient Vitals for the past 24 hrs: BP Temp Temp src Pulse Resp SpO2 Height Weight 08/13/24 2101 (!) 148/99 98.5 ??F (36.9 ??C) Temporal (!) 139 18 98 % 1.676 m (5' 6) 112.3 kg (247lb 9.2 oz) Physical Exam General: Well-nourished, resting comfortably when I enter the room Eyes: Pupils equal, conjunctivae pink no scleral icterus or conjunctival injection ENT: Moist mucus membranes. Tooth #2 and 3 show dental caries and erosion down to the gumline. No discharge. No swelling or redness of the gums. No swelling of the cheeks. No swelling under the tongue. Respiratory: Lungs clear to auscultation bilaterally, no crackles/rubs/wheezes. Good air movement CV: Normal rate and rhythm, no murmurs GI: Abdomen soft and non-distended. No tenderness, guarding or rebound Skin: Warm, dry. No rashes or petechiae Musculoskeletal: No peripheral edema or calf tenderness Neuro: Alert and oriented to person/place/time Psychiatric: Normal affect ED Course Medications Administered Medications BUPivacaine (MARCAINE) 0.5% preservative free injection (has no administration in time range) HYDROmorphone (DILAUDID) tablet 2 mg (has no administration in time range) benzocaine (ORAJEL MAXIMUM STRENGTH) 20 % gel ( Mouth/Throat $Given 08/13/24 2312) Procedures Procedures Dental Block Procedure: Dental Block Indication: Facial Pain Consent: Verbal Location: #2: R upper second molar and #3: R upper first molar Procedure Detail: 1.8 cc of bupivacaine 0.5% with epinephrine was injected via Supraperiosteal block: Good visualization and identification of landmarks is achieved. Anesthetic is injected using a 27g needle into the muccobuccal fold superjacent to the affected tooth. Patient Status: The patient tolerated the procedure well: Yes. There were no complications. Discussion of Management None ED Course ED Course as of 08/13/24 2342 Sun Aug 13, [id number] I obtained history and examined the patient as noted above. 2214 I rechecked the patient. 2335 I rechecked the patient and we discussed plan for discharge. Additional Documentation None Medical Decision Making / Diagnosis HARRIET Lopez is a 38 year old female who is well-known to the emergency department history presents to the emergency department with a complaint of dental pain. Patient reports this has been going on for quite some time. She states that she tried to schedule an appointment with an oral surgeon who wanted cashed upfront, and she was not able to pay this. She was seen in the emergency department and was started on Augmentin. Patient reports that she is still having a lot of pain. Patient reports that she has been vomiting. Patient has a chronic problem of nausea and vomiting. She does not have any vomiting while she is here in the emergency department for the past 3 hours. On exam, patient is tearful. Her second and third teeth have dental caries, and are broken and eroded. There is no sign of abscess. Her gums are not red or swollen. No signs of Dylan's angina. No signs of systemic infection, and she has had lab work multiple times that has all been reassuring forthe similar pain. I think that her pain is secondary to the tooth decay. I did do a dental block, which the patient states did not help her pain. She was given 2 mg of oralDilaudid at her request. She reports last time she got a dental block it did not work either. She was also given some Orajel on her request as well. I did let the patient know that her teeth probably will not feel better until they are removed. Sheis going to finish her Augmentin. I did give her dental resources. Otherwise I do not see any otheracute problems that can be solved here in the emergency department tonight. Patient is discharged home. Disposition The patient was discharged. Diagnosis ICD-10-CM 1. Dental caries K02.9 Discharge Medications New Prescriptions No medications on file Scribe Disclosure: I, Israel Connell, am serving as a scribe at 10:33 PM on 08/13/2024 to document services personally performed by Livia Gutierrez DO, based on my observations and the provider's statements to me. Livia Gutierrez MD 08/14/24 0042 * Megan Kwon RN - 08/13/2024 9:00 PM CDT Pt reports a tooth infection that she has had for awhile. Pt unable to afford the up front fee for oral surgery. Pt reports pain is worse and is vomiting documented in this encounter Plan of Treatment Upcoming Encounters Date Type Department Care Team (Late st Contact Info) Description 02/20/2025 10:[address] [facility] Imaging [address] [place] [phone] Allyssa Justice MD [facility] [address] [place] [address] [place] [address] 02/27/2025 10:40 AM CDT Virtual Visit [facility] [address], [place] [address] [facility] Medical [facility] [place] [phone] Allyssa Justice MD [facility] [address] [place] [address] [place] [address] documented as of this encounter Visit Diagnoses Diagnosis Dental caries Unspecified dental caries documented in this encounter Administered Medications Inactive Administered Medications - up to 3 most recent administrations Medication Order MAR Action Action Date Dose Rate Site benzocaine (ORAJEL MAXIMUM STRENGTH) 20 % gel Mouth/Throat, ONCE, On 08/13/24 at 2240, For 1 dose $Given 08/13/2024 11:12 PM CDT HYDROmorphone (DILAUDID) tablet 2 mg 2 mg, Oral, ONCE, On 08/13/24 at 2345, For 1 dose $Given 08/13/2024 11:45 PM CDT 2 mg documented in this encounter Active and Recently Administered Medications Times are shown in CDT. Scheduled Medication Order 08/11/2024 08/12/2024 08/13/2024 benzocaine (ORAJEL MAXIMUM STRENGTH) 20 % gel (COMPLETED) Mouth/Throat, ONCE, On 08/13/24 at 2240, For 1 dose 2312 ($Given - Provi rosita: Ale Silva RN) BUPivacaine (MARCAINE) 0.5% preservative free injection 25 mg (5 mL), Dental, ONCE, On 08/13/24 at 2140, For 1 dose 2140 (Canceled Entry - Provider: Orders Generic Provider - Comment: Automatically canceled at discontinue of medication order) HYDROmorphone (DILAUDID) tablet 2 mg (COMPLETED) 2 mg, Oral, ONCE, On 08/13/24 at 2345, For 1 dose 2345 ($Given - Provi rosita: Ale [place] RN) 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 Assessment Noted Time PHQ-9 Depression Total Score: 4 02/21/20 24 1:54 PM CDT documented as of this encounter Care Teams Coal Trimmer Machine Operator Relationship Specialty Start [place] [address] [address] [address] PCP - General Family Medicine 04/22/23 [place] [address] [address] [address] Assigned Pain Medication Provider 12/07/22 [place] [address] [address] [address] Assigned PCP 01/23/23 [place] [address] [place] [address] Assigned Musculoskeletal Provider 01/23/23 09/19/24 Kingsley Garcia MD [address] [place] [address]14[address] Assigned Heart and Vascular Provider 08/07/23 [place] [address] [address] [address] Family Medicine 09/10/23 Master Shea PA-C [address] [place] [address] Physician Pediatric Lpn Gastroenterology 09/10/23 Allyssa Justice MD [facility] [address] [place] [address] [place] [address] Hematology & Oncology 12/10/23 Genaro Christian MD [address] [place], [place] [address]338[address] Cardiovascular Disease 12/22/23 Master Shea PA-C [address] [place] [address] Assigned Gastroenterology Provider 12/23/23 Sienna Guillermo DO [address] [place] [address] Physician Cardiovascular Disease 01/18/24 Allyssa Justice MD [facility] [address] [place] [address] [place] [address] Assigned Cancer Care Provider 03/21/24 Declan Leavitt MD [address] [place] [address] [place] [address]80[address] Assigned Surgical Provider 07/21/24 documented as of this encounter
--- OUTSIDE RECORDS SUMMARY | 2024-09-21 22:40 | XMS_ITS | Encounter Summary ---
Author Organization [facility] Address [address] [place] [address] Care Team Providers Care Contracts Attorney Name Role Phone Segundo Mcclelland MD Unavailable [phone] Segundo Mcclelland MD Unavailable [phone] Qamar Jackson MD Unavailable Segundo Mcclelland MD Primary Care Provider + Kingsley Garcia MD Unavailable + [phone] Segundo Mcclelland MD Unavailable [phone] Master Shea PA-C Unavailable Allyssa Justice MD Unavailable [phone] Genaro Christian MD Unavailable [phone] Master Shea PA-C Unavailable Sienna Guillermo DO Unavailable [phone] Allyssa Justice MD Unavailable [phone] Declan Leavitt MD Unavailable Reason for Visit * Reason Onset Date Comments Forms 09/01/2024 Restricted Recip ient Specialty Referral- [facility] Encounter Details Date Type Department Care Team (Late st Contact Info) Description 09/01/[address] [facility] [address] [facility] [address] [place] [phone] [place] [address] [address] 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 Faxed. Kait Winters Lead Cost Control Specialist [facility] * Telephone Encounter - Segundo Mcclelland MD - 09/05/2024 1:59 PM CDT I just went through my inbasket and didn't find this. Segundo Mcclelland MD * Telephone Encounter - Gifty Briceno - 09/04/2024 8:17 AM CDT Forms in provider basket for completion. Fax back to [facility] @ [phone]. Gifty Cunningham Cost Control Specialist- [place] [address] Primary Care- [place] [facility] * Telephone Encounter - Justine Adkins - 09/01/2024 4:08 PM CDT Forms/Letter Request Type of form/letter: OTHER: [facility] Do we have the form/letter: Yes: front desk team member in basket Who is the form from? [facility] Where did/will the form come from? form was faxed in When is form/letter needed by: [facility] How would you like the form/letter returned: Patient Notified form requests are processed in 5-7 business days:No Could we send this information to you in [facility] or would you prefer to receive a phone call?: No preference Okay to leave a detailed message?: No at Other phone number: FAX: [phone] Justine Adkins Patient Natural Science Curator [facility] documented in this encounter Plan of Treatment Upcoming Encounters Date Type Department Care Team (Late st Contact Info) Description 02/20/2025 10:20 AM CDT Appointment [facility] Imaging [address] [place] [address] Allyssa Justice MD [facility] [address] [place] [address] [place] [address] 02/27/2025 10:40 AM CDT Virtual Visit [facility] [address], [place] [address] [facility] Medical Ctr [place] [phone] Allyssa Justice MD [facility] [address] [place] [address] [place] [address] documented as of this encounter Visit Diagnoses Not on file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 Assessment Noted Time PHQ-9 Depression Total Score: 4 02/21/20 24 1:54 PM CDT documented as of this encounter Care Teams Contracts Attorney Relationship Specialty Start [place] [address] [address] [address] PCP - General Family Medicine 04/22/23 [place] [address] [address] [address] Assigned Pain Medication Provider 12/07/22 [place] [address] [address] [address] Assigned PCP 01/23/23 [place] [address] [place] [address] Assigned Musculoskeletal Provider 01/23/23 09/19/24 Kingsley Garcia MD [address] [place] [address] Assigned Heart and Vascular Provider 08/07/23 [place] [address] [address] [address] Family Medicine 09/10/23 Master Shea PA-C [address] [place] [address] Physician Online Trader Gastroenterology 09/10/23 Allyssa Justice MD [facility] [address] [place] [address] [place] [address] Hematology & Oncology 12/10/23 Genaro Christian MD [address] [place], [place] [address] Cardiovascular Disease 12/22/23 Master Shea PA-C [address] [place] [address] Assigned Gastroenterology Provider 12/23/23 Sienna Guillermo DO [address] [place] [address] Physician Cardiovascular Disease 01/18/24 Allyssa Justice MD [facility] [address] [place] [address] Assigned Cancer Care Provider 03/21/24 Declan Leavitt MD [address] [place] [address] Assigned Surgical Provider 07/21/24 documented as of this encounter
--- OUTSIDE RECORDS SUMMARY | 2024-09-21 22:40 | XMS_ITS | Encounter Summary ---
Author Organization [place] Address [address] [place] [address] Care Team Providers Care Director Regulatory Affairs Name Role Phone Segundo Mcclelland MD Unavailable [phone] Segundo Mcclelland MD Unavailable [phone] Qamar Jackson MD Unavailable Segundo Mcclelland MD Primary Care Provider + Kingsley Garcia MD Unavailable + [phone] Segundo Mcclelland MD Unavailable [phone] Master Shea PA-C Unavailable Allyssa Justice MD Unavailable [phone] Genaro Christian MD Unavailable [phone] Master Shea PA-C Unavailable Sienna Guillermo DO Unavailable [phone] Allyssa Justice MD Unavailable [phone] Declan Leavitt MD Unavailable Encounter Details Date Type Department Care Team (Late st Contact Info) Description 08/22/2024 [facility] [address] [address] [place] Social History Tobacco Use Types Packs/Day Years [...] in an abandoned building, in an overnight chcf, or couch-surfing.) Yes 08/26/2023 Are you worried [...] AM CDT 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 Malia Garrett, request for lumbar puncture needs to be scheduled at the [facility] as requested in the order as there is not a provider here at [facility] to complete procedure. documented in this encounter Plan of Treatment Upcoming Encounters Date Type Department Care Team (Late st Contact Info) Description 02/20/2025 10:20 AM CDT Appointment [facility] Imaging [address] [place] [address] Allyssa Justice MD [facility] [address] [place] [address] [place] [address] 02/27/2025 10:40 AM CDT Virtual Visit [facility] [address] [place] [address] [facility] Medical Ctr [place] [phone] Allyssa Justice MD [facility] [address] [place] [address] [place] [address] documented as of this encounter Visit Diagnoses Not on file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 Assessment Noted Time PHQ-9 Depression Total Score: 4 02/21/20 24 1:54 PM CDT documented as of this encounter Care Teams Director Regulatory Affairs Relationship Specialty Start [place] [address] [address] [address] PCP - General Family Medicine 04/22/23 [place] [address] [address] [address] Assigned Pain Medication Provider 12/07/22 [place] [address] [place] [address] Assigned PCP 01/23/23 [place] [address] [place] [address] Assigned Musculoskeletal Provider 01/23/23 09/19/24 Kingsley Garcia MD [address] [place] [address] Assigned Heart and Vascular Provider 08/07/23 [place] [address] [place] [address] Family Medicine 09/10/23 Master Shea PA-C [address] [place] [address] Physician Wagon Washer Gastroenterology 09/10/23 Allyssa Justice MD [facility] [address] [place] [address] [place] [address] Hematology & Oncology 12/10/23 Genaro Christian MD 6 [place] [address] Cardiovascular Disease 12/22/23 Master Shea PA-C [address] [place] [address] Assigned Gastroenterology Provider 12/23/23 Sienna Guillermo DO [address] [place] [address] Physician Cardiovascular Disease 01/18/24 Allyssa Justice MD [facility] [address] [place] [address] [place] [address] Assigned Cancer Care Provider 03/21/24 Declan Leavitt MD [address] [place] [address] [place] [address] Assigned Surgical Provider 07/21/24 documented as of this encounter
--- OUTSIDE RECORDS SUMMARY | 2024-09-21 22:40 | XMS_ITS | Encounter Summary ---
Author Organization [place] Address [address] [place] [address] Care Team Providers Care Knockout Machine Operator Name Role Phone Segundo Mcclelland MD Unavailable [phone] Segundo Mcclelland MD Unavailable [phone] Qamar Jackson MD Unavailable Segundo Mcclelland MD Primary Care Provider + Kingsley Garcia MD Unavailable + [phone] Segundo Mcclelland MD Unavailable [phone] Master Shea PA-C Unavailable Allyssa Justice MD Unavailable [phone] Genaro Christian MD Unavailable + [phone] Master Shea PA-C Unavailable Sienna Guillermo DO Unavailable [phone] Allyssa Justice MD Unavailable [phone] Declan Leavitt MD Unavailable Reason for Visit * Reason Onset Date Comments Medication Request 08/14/2024 Encounter Details Date Type Department Care Team (Late st Contact Info) Description 08/14/2024 [facility] [address] [place] [address] [place] [address] [place] [address] Medication Request Social History Tobacco Use Types [...] CDT 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 Request has already been routed to PCP. Jolie Garcia RN on 08/18/2024 at 10:04 AM * Telephone Encounter - Christa Yi RN - 08/14/2024 1:49 PM CDT Received call from patient in tears requesting an update on medications from Dr. Mcclelland. Stated shespoke with her psychiatrist since the phone call shown below. Patient's psychiatrist also called, see telephone encounter 08/14/2024. Patient states she can't bear the pain another night and needs something to get her through until when she sees oral surgery to have the tooth pulled. Statesat the ED 08/13/2024 they tried nerve block but it didn't work, then oragel and dilaudid without relief. ED recommended to talk to PCP today. Seen in ED multiple times since incident. Dr. Mccellland please review and advise. Can patient get medications or a visit? Christa Yi RN * Telephone Encounter - Alanna Kruger RN - 08/14/2024 10:29 AM CDT Incoming call from patient. See MyChart Message. Please review and advise on plan. Seen at ED yesterday for dental problem. I do not see an opening at today with Segundo Mcclelland MD who her narcoticsare restricted to. Soonest opening with Dr Mcclelland is 08/21/24. Do you recommend hospital follow up with a different provider? Alanna Kruger RN on 08/14/2024 at 10:29 AM documented in this encounter Plan of Treatment Upcoming Encounters Date Type Department Care Team (Late st Contact Info) Description 02/20/2025 10:20 AM CDT Appointment [facility] [address] [place] [phone] Allyssa Justice MD [facility] [address] [place] [address] 02/27/2025 10:40 AM CDT Virtual Visit [facility] [address] [facility] Medical Ctr [place] [phone] Allyssa Justice MD [facility] [address] [place] [id number] documented as of this encounter Visit Diagnoses Diagnosis Tooth pain- Primary Unspecified disorder of the teeth and supporting structures 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 Assessment Noted Time PHQ-9 Depression Total Score: 4 02/21/20 24 1:54 PM CDT documented as of this encounter Care Teams Knockout Machine Operator Relationship Specialty Start [place] [address] [address] [address] PCP - General Family Medicine 04/22/23 [place] [address] [address] [address] Assigned Pain Medication Provider 12/07/22 [place] [address] [address] [address] Assigned PCP 01/23/23 Qamar [place] [id number] [place] [address] [address] [place] [address] Assigned Musculoskeletal Provider 01/23/23 09/19/24 Kingsley Garcia MD [address] [place] [address] Assigned Heart and Vascular Provider 08/07/23 [place] [address] [address] [place] [address] Family Medicine 09/10/23 Master Shea PA-C [address] [place] [address] Physician Shredding Machine Tender Gastroenterology 09/10/23 Allyssa Justice MD [facility] [address] [place] [address] Hematology & Oncology 12/10/23 Genaro Christian MD [address] [place] [address] Cardiovascular Disease 12/22/23 Master Shea PA-C [address] [place] [address] Assigned Gastroenterology Provider 12/23/23 Sienna Guillermo DO [address] [place] [address] Physician Cardiovascular Disease 01/18/24 Allyssa Justice MD [facility] [address] [place] [address] Assigned Cancer Care Provider 03/21/24 Declan Leavitt MD [address] [place] [address] Assigned Surgical Provider 07/21/24 documented as of this encounter
--- OUTSIDE RECORDS SUMMARY | 2024-09-21 22:40 | XMS_ITS | Encounter Summary ---
Author Organization [place] Address [address] [place] [address] Care Team Providers Care Remelt Worker Name Role Phone Segundo Mcclelland MD Unavailable [phone] Segundo Mcclelland MD Unavailable [phone] Qamar Jackson MD Unavailable Segundo Mcclelland MD Primary Care Provider + Kingsley Garcia MD Unavailable + [phone] Segundo Mcclelland MD Unavailable [phone] Master Shea PA-C Unavailable Allyssa Justice MD Unavailable [phone] Genaro Christian MD Unavailable + [phone] Master Shea PA-C Unavailable Sienna Guillermo DO Unavailable [phone] Allyssa Jutsice MD Unavailable [phone] Declan Leavitt MD Unavailable Reason for Visit * Reason Onset Date Comments *-*INCOMING RECORDS*-* 08/22/2024 Encounter Details Date Type Department Care Team (Late st Contact Info) Description 08/22/2024 PRE VISIT [facility] [address] [address] Ugo Ochoa MD [address] [place] [id number] *-*INCOMING RECORDS*-* Social History Tobacco Use Types Packs/Day Years [...] AM CDT 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 Sex 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 Gender Identity Female 05/26/2021 10:37 AM CDT Sexual Orientation Straight 05/26/2021 10 :37 AM CDT Occupation Industry Job Start Date Job End Date unemployed Not on file Not on file Not on file Not on file Not on file Not on file Not on file documented as of this encounter Miscellaneous Notes * Telephone Encounter - Sherri Miner - 07/20/2024 11:34 AM CDT REASON FOR VISIT: findings on MRI DATE OF APPT: 08/22/2024 NOTES (FOR ALL VISITS) STATUS DETAILS OFFICE NOTE from referring provider Internal [facility] Pennie Reeder MD 07/19/2024 MEDICATION LIST Internal IMAGING (FOR ALL VISITS) XR N/A MRI (HEAD, NECK, SPINE) [facility] MR Brain 07/19/2024 MRI Thoracic spine 07/09/2024 MRI Cervical spine 07/09/2024 CT (HEAD, NECK, SPINE) Internal [facility] CTA Head neck 07/18/2024 CT Head 07/18/2024 CT Cervical spine 07/09/2024 CT Thoracic spine 07/09/2024 documented in this encounter Plan of Treatment Upcoming Encounters Date Type Department Care Team (Late st Contact Info) Description 02/20/2025 10:20 AM CDT Appointment [facility] Imaging [address] [place] [phone] Allyssa Justice MD [facility] [address] [place] [address] 02/27/2025 10:40 AM CDT Virtual Visit [facility] [address] [facility] [place] [phone] Allyssa Justice MD [facility] [address] [place] [address] documented as of this encounter Visit Diagnoses Not on file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 Assessment Noted Time PHQ-9 Depression Total Score: 4 02/21/20 24 1:54 PM CDT documented as of this encounter Care Teams Remelt Worker Relationship Specialty Start [place] [address] [place] [address] PCP - General Family Medicine 04/22/23 [place] [address] [address] [address] Assigned Pain Medication Provider 12/07/22 [place] [address] [address] [address] Assigned PCP 01/23/23 [place] [address] [address] [place] [address] Assigned Musculoskeletal Provider 01/23/23 09/19/24 Kingsley Garcia MD [address] [place] [address] Assigned Heart and Vascular Provider 08/07/23 [place] [address] [address] [address] Family Medicine 09/10/23 Master Shea PA-C [address] [place] [address] Physician Implementation Lead Gastroenterology 09/10/23 Allyssa Justice MD [facility] [address] [place] [address] Hematology & Oncology 12/10/23 Genaro Christian MD [address] [place] [address] Cardiovascular Disease 12/22/23 Master Shea PA-C [address] [place] [address] Assigned Gastroenterology Provider 12/23/23 Sienna Guillermo DO [address] [place] [address] Physician Cardiovascular Disease 01/18/24 Allyssa Justice MD [facility] [address] [place] 914[address] Assigned Cancer Care Provider 03/21/24 Declan Leavitt MD [address] [place] [address]34[address] Assigned Surgical Provider 07/21/24 documented as of this encounter
--- OUTSIDE RECORDS SUMMARY | 2024-09-21 22:40 | XMS_ITS | Encounter Summary ---
Author Organization [facility] Address [address] [place] [address] Care Team Providers Care Water Filter Cleaner Name Role Phone Segundo Mcclelland MD Unavailable [phone] Segundo Mcclelland MD Unavailable [phone] Qamar Jackson MD Unavailable Segundo Mcclelland MD Primary Care Provider + Kingsley Garcia MD Unavailable + [phone] Segundo Mcclelland MD Unavailable [phone] Master Shea PA-C Unavailable Allyssa Justice MD Unavailable [phone] Genaro Christian MD Unavailable + [phone] Master Shea PA-C Unavailable Sienna Guillermo DO Unavailable [phone] Allyssa Justice MD Unavailable [phone] Declan Leavitt MD Unavailable Reason for Visit * Reason Onset Date Comments Refill Request 08/16/2024 Encounter Details Date Type Department Care Team (Late st Contact Info) Description 08/16/2024 [facility] [address] [place] [address] [place] [address] [place] [address] Refill Request Social History Tobacco Use Types [...] AM CDT 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 Farrah Nelson RN 08/18/2024 at 3:00 PM * Telephone Encounter - Suzanne Wetzel RN - 08/18/2024 10:50 AM CDT Patient calling to check status of refill request. Patient requests high priority message. * Telephone Encounter - Kait Rao - 08/18/2024 7:02 AM CDT Patient calls checking status of refill. * Telephone Encounter - Heidi Gómez RN - 08/17/2024 3:11 PM CDT Pt called crying. Pt requesting Dilaudid after tooth surgery. Pt stated that they did not give her enough numbing for the tooth extraction and she is in terrible pain. Pt stated that Dr. Mcclelland told her to request extra dilaudid after surgery through her dentist/surgeon. Pt states she did this but that [facility] do not prescribe medications and she needs this through Dr. Mcclelland. Routing as high priority to Dr. Mcclelland and team. RAFIA Suarez, RN [facility] 08/17/2024 at 3:14 PM documented in this encounter Plan of Treatment Upcoming Encounters Date Type Department Care Team (Late st Contact Info) Description 02/20/2025 10:20 AM CDT Appointment [facility] Imaging [address] [place] [address] Allyssa Justice MD [facility] [address] [place] [address] 02/27/2025 10:40 AM CDT Virtual Visit [facility] [address] [facility] [place] [address] Allyssa Justice MD 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 Assessment Noted Time PHQ-9 Depression Total Score: 4 02/21/20 24 1:54 PM CDT documented as of this encounter Care Teams Water Filter Cleaner Relationship Specialty Start [place] [address] [address] [address] PCP - General Family Medicine 04/22/23 [place] [address] [address] [address] Assigned Pain Medication Provider 12/07/22 [place] [address] [address] [address] Assigned PCP 01/23/23 [place] [address] [place] [address] Assigned Musculoskeletal Provider 01/23/23 09/19/24 Kingsley Garcia MD [address] [place] 258465 Assigned Heart and Vascular Provider 08/07/23 [place] [address] [place] [address] Family Medicine 09/10/23 Master Shea PA-C [address] [place] [address] Physician Home Health Specialist Gastroenterology 09/10/23 Allyssa Justice MD [facility] [address] [place] 5269[address] Hematology & Oncology 12/10/23 Genaro Crhistian MD [address] [place] [address]33475 Cardiovascular Disease 12/22/23 Master Shea PA-C [address] [place] [address] Assigned Gastroenterology Provider 12/23/23 Sienna Guillermo DO [address] [place] [address]859[address] Physician Cardiovascular Disease 01/18/24 Allyssa Justice MD [facility] [address] [place] 252065 Assigned Cancer Care Provider 03/21/24 Declan Leavitt MD [address] [place] [address] Assigned Surgical Provider 07/21/24 documented as of this encounter
--- OUTSIDE RECORDS SUMMARY | 2024-09-21 22:41 | XMS_ITS | Encounter Summary ---
Author Organization [place] Address [address] [place] [address] Care Team Providers Care Shot Peen Operator Name Role Phone Segundo Mcclelland MD Unavailable [phone] Segundo Mcclelland MD Unavailable [phone] Qamar Jackson MD Unavailable Segundo Mcclelland MD Primary Care Provider + Gregorio Dalton PA-C Unavailable [phone] Kingsley Garcia MD Unavailable + [phone] Segundo Mcclelland MD Unavailable [phone] Master Shea PA-C Unavailable Allyssa Justice MD Unavailable [phone] Genaro Christian MD Unavailable [phone] Master Shea PA-C Unavailable Sienna Guillermo DO Unavailable [phone] Allyssa Justice MD Unavailable [phone] Declan Leavitt MD Unavailable Ugo Ochoa MD Unavailable Reason for Visit * Reason Onset Date Comments Referral 07/19/2024 Neurology referr al Encounter Details Date Type Department Care Team (Late st Contact Info) Description 07/19/2024 Telephone [facility] [address] [place] [address] None Referral (Neurology referral) Social History Tobacco Use Types Packs/Day Years [...] AM CDT 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 Gender Identity Female 05/26/2021 10:37 AM CDT Sexual Orientation Straight 05/26/2021 10 :37 AM CDT Occupation Industry Job Start Date Job End Date unemployed Not on file Not on file Not on file Not on file Not on file Not on file Not on file documented as of this encounter Miscellaneous Notes * Telephone Encounter - Norma Meeks - 07/19/2024 12:45 PM CDT Left Voicemail (1st Attempt) for the patient to call back and schedule the following: Appointment type: New Neurology Provider: Gabriela Return date: 08/22 @ 1:00pm Specialty phone number: [phone] Additional appointment(s) needed: Additonal Notes: Spot held for patient on 08/22/25 at 1:00pm with Dr. Ochoa at [facility], schedule per DONNA Florian Will need to manually schedule. Norma Meeks on 07/19/2024 at 12:47 PM * Telephone Encounter - Jessica Cook - 07/19/2024 9:49 AM CDT [facility] Phone Message May a detailed message be left on voicemail: yes Reason for Call: Appointment Intake Referring Provider Name: KELLY HARRISON Diagnosis and/or Symptoms: Altered mental status, unspecified altered mental status type Corporate Accounting Manager is unable to schedule appt due to referring diagnosis. Please review and call pt to advise at # [phone]. Action Taken: Message routed to: Other: [facility] Neurology Travel Screening: Not Applicable Date of Service: documented in this encounter Plan of Treatment Upcoming Encounters Date Type Department Care Team (Late st Contact Info) Description 02/20/2025 10:20 AM CDT Appointment [facility] Imaging [address] [facility] [address] [place] [address] Allyssa Justice MD [facility] [address] [place] [address] 02/27/2025 10:40 AM CDT Virtual Visit [facility] [address] [place] [address] [facility] Medical Ctr [place] [address] Allyssa Justice MD [facility] [address] [facility] [address] [place] [address] documented as of this encounter Visit Diagnoses Not on file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 Assessment Noted Time PHQ-9 Depression Total Score: 4 02/21/20 24 1:54 PM CDT documented as of this encounter Care Teams Shot Peen Operator Relationship Specialty Start [place] [address] [address] [address] PCP - General Family Medicine 04/22/23 [place] [address] [address] [address] Assigned Pain Medication Provider 12/07/22 [place] [address] [address] [address] Assigned PCP 01/23/23 [place] [address] [place] [address] Assigned Musculoskeletal Provider 01/23/23 09/19/24 Gregorio Dalton PA-C [address] [place] [address] Assigned Surgical Provider 05/22/23 07/20/24 Kingsley Garcia MD [address] [place] [address] Assigned Heart and Vascular Provider 08/07/23 [place] [address] [place] [address] Family Medicine 09/10/23 Master Shea PA-C [address] [facility] [place] [address] Physician Chimney Supervisor Brick Gastroenterology 09/10/23 Allyssa Justice MD [facility] [address] [place] [address] Hematology & Oncology 12/10/23 Genaro Christian MD [address] [place] [address] Cardiovascular Disease 12/22/23 Master Shea PA-C [address] [place] [address] Assigned Gastroenterology Provider 12/23/23 Sienna Guillermo DO [address] [place] [address] Physician Cardiovascular Disease 01/18/24 Allyssa Justice MD [facility] [address] [place] [address] Assigned Cancer Care Provider 03/21/24 Declan Leavitt MD [address] [place] [address] Assigned Surgical Provider 07/21/24 Ugo Ochoa MD [address] [place] [address] Assigned Neuroscience Provider 09/20/24 documented as of this encounter
--- OUTSIDE RECORDS SUMMARY | 2024-09-21 22:41 | XMS_ITS | Encounter Summary ---
Author Organization [facility] Address [address] [place] [address] Care Team Providers Care Mattress Packer Name Role Phone Segundo Mcclelland MD Unavailable [phone] Segundo Mcclelland MD Unavailable [phone] Qamar Jackson MD Unavailable Segundo Mcclelland MD Primary Care Provider + Gregorio Dalton PA-C Unavailable [phone] Kingsley Garcia MD Unavailable + [phone] Segundo Mcclelland MD Unavailable [phone] Master Shea PA-C Unavailable Allyssa Justice MD Unavailable [phone] Genaro Christian MD Unavailable [phone] Master Shea PA-C Unavailable Sienna Guillermo DO Unavailable [phone] Allyssa Justice MD Unavailable [phone] Reason for Visit * Reason Comments Syncope Onset today at 6 pm syncopal episode at home, I passed out in my kitchen, I think I am dehydrated, feeling weak. 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 Gender Identity Female 05/26/2021 10:37 AM CDT Sexual Orientation Straight 05/26/2021 10 :37 AM CDT Occupation Industry Job Start Date Job End Date unemployed Not on file Not on file Not on file Not on file Not on file Not on file Not on file documented as of this encounter Last Filed Vital Signs Vital Sign Reading Time Taken Comments Blood Pressure 116/81 07/16/2024 1:59 AM CDT Pulse 101 07/16/2024 1:59 AM CDT Temperature 36.8 ??C (98.3 ??F) 07/15/2024 10:36 PM C DT Respiratory Rate 20 07/16/2024 1:59 AM CDT Oxygen Saturation 99% 07/16/2024 1:59 AM CDT Inhaled Oxygen Concentration - - Weight - - Height - - Body Mass Index - - documented in this encounter Discharge Instructions * Discharge Instructions* Jim Nuñez MD - 07/16/2024 1:18 AM CDT I was sorry to hear that you are having difficulty getting your feeding tube scheduled as an outpatient. However I was happy to see that your laboratory studies overall today demonstrate no significant anemia requiring transfusion, obvious signs of infection, strain or stress in your heart or otherabnormality. I would encourage you to continue to follow with your PCP to aid in assistance with plan for rehydration as well as follow-up with gastroenterology for consideration of formal diagnosis of gastric emptying abnormality. Should you have change, progression or worsening symptoms we are certainly happy to reevaluate you emergently at a time. * Attachments The following attachments cannot be sent through Care Everywhere. * Fainting (Cook Islander) documented in this encounter Medications at [...] anxiety naloxone (NARCAN) 4 MG/0.1ML nasal spray [place] 4 mg into one nostril alternating nostrils once as needed for opioid reversal 06/28/2023 pantoprazole (PROTONIX) 40 MG EC tablet Take 40 mg by mouth daily sodium chloride 0.9% infusionIndication s:Gastroparesis Inject 1,000 mLs into the vein as needed for other (Wednesday with IV antibiotic) 77025 mL 06/02/2024 sucralfate (CARAFATE) 1 GM tabletIndications: Kathleen-Mustafa tear Take 1 tablet (1 g) by mouth 4 times daily 120 tablet 1 06/09/2024 zolpidem (AMBIEN) 10 MG tablet Take 10 mg by mouth At Bedtime 12/17/2022 ferrous sulfate (SARA-IN-JESSICA) 75 (15 FE) MG/ML oral dropsIndications:A nemia due to blood loss, acute Take 5 mLs (75 mg) by mouth daily 50 mL 1 06/09/2024 4 documented as of this encounter ED Notes * Zion Merida, RN - 07/16/2024 2:08 AM CDT Unable to place IV with multiple attempts via ultrasound with ultrasound trained staff. Patient informed that staff can continue to try but patient ultimately decided that she did not want to be poked any further. Patient was discharged home via cab. AVS discussed with patient. All questions and inquires answered. * Zion Merida RN - 07/16/2024 1:12 AM CDT Reported 8/10 headache. Pt specifically requested oral dilaudid 2mg. Informed pt that it is up to MD discretion. MD informed and stated that dilaudid is not appropriate at this time and that tylenol would be appropriate. Patient refused tylenol at this time. * Jim Nuñez MD - 07/15/2024 11:27 PM CDT Images from the original note were not included. ED PROVIDER NOTE July 15, 2024 History Chief Complaint Patient presents with Syncope Onset today at 6 pm syncopal episode at home, I passed out in my kitchen, I think I am dehydrated, feeling weak. HPI Sandi Lopez is a 38 year old female who has a longstanding history of POTS, drug-seeking behavior, borderline personality disorder, recurrent syncope of unclear etiology, and dehydration. Thepatient arrives today to the emergency department due to concern of dehydration. She states she waslast hydrated intravenously in the emergency department. Previously she did have a PICC line and isgetting IV hydration through the infusion center but has had ride issues and PICC was removed. She states that due to gastroparesis she is able to only ingest small amounts of fluids. She is currently being worked up with gastroenterology for a repeat gastric emptying study with consideration per IR and surgery for possible feeding tube placement. She reports tonight a syncopal episode and does report some muscular upper back discomfort. She reports intermittent diaphoresis improved with position. She reports lightheadedness with exertion. No chest pain, palpitations, recent vomiting, diarrhea, melena or hematochezia. No recent fever, chills, nasal congestion, rhinorrhea. No recent trauma. Past Medical History Past Medical History: Diagnosis Date Abnormal Pap smear [place]/2 LEEPs age 16 Allergic rhinitis Anemia 2011 with Atrial flutter Borderline personality disorder Continuous [...] Lovenox x 3 months. Past Surgical History: Procedure Laterality Date ADENOIDECTOMY [...] Procedure: ESOPHAGOGASTRODUODENOSCOPY; Surgeon: Meg Lee MD; Location: [facility]; Service: ESOPHAGOSCOPY, GASTROSCOPY, DUODENOSCOPY (EGD), COMBINED N/A 02/13/2016 Procedure: ESOPHAGOGASTRODUODENOSCOPY; Surgeon: Meg Lee MD; Location: [facility] OR; Service: ESOPHAGOSCOPY, GASTROSCOPY, DUODENOSCOPY [...] CONTROLLED EPITAXIS; Surgeon: Declan Mata MD; Location: [facility] Main OR; Service: OOPHORECTOMY Right REMOVE PORT VASCULAR ACCESS N/A 04/07/2024 Procedure: Basilic vein midline catheter placment and port removal; Surgeon: Malia Garrett DO; Location: [facility] OR [place] fracture lt foot surgery 10/1998 TONSILLECTOMY & ADENOIDECTOMY 1995 TRANSESOPHAGEAL ECHOCARDIOGRAM INTRAOPERATIVE N/A 09/17/2021 Procedure: ECHOCARDIOGRAM, TRANSESOPHAGEAL, INTRAOPERATIVE; Surgeon: GENERIC ANESTHESIA PROVIDER; Location: [facility] OR TUBAL LIGATION apixaban ANTICOAGULANT (ELIQUIS) 5 MG tablet childrens multivitamin w/iron (FLINTSTONES COMPLETE) chewable tablet diphenhydrAMINE (BENADRYL) 50 MG/ML injection EPINEPHrine (ANY BX GENERIC EQUIV) 0.3 MG/0.3ML injection 2-pack ferrous sulfate (SARA-IN-JESSICA) 75 (15 FE) MG/ML oral drops fluconazole (DIFLUCAN) 200 MG tablet folic acid (FOLVITE) 400 MCG tablet gabapentin (NEURONTIN) 800 MG tablet LORazepam (ATIVAN) 1 MG tablet naloxone (NARCAN) 4 MG/0.1ML nasal spray pantoprazole (PROTONIX) 40 MG EC tablet sodium chloride 0.9% infusion sucralfate (CARAFATE) 1 GM tablet zolpidem (AMBIEN) 10 MG tablet Allergies Allergen Reactions Chlorhexidine Itching and Swelling [...] Hydroxyzine Palpitations Reports HR into the 160's Family History Family History Problem Relation Age of Onset Breast Cancer Mother Other Cancer Mother uterine cacer Depression Mother Obesity Mother Colon Cancer Father Depression Father Substance Abuse Father Alcoholic Obesity Father Diabetes Paternal Grandmother Cancer - colorectal Paternal Grandfather , diagnosed in 50's, at 54 Diabetes Other Social History Social History Tobacco Use Smoking status: Never Passive exposure: Never Smokeless tobacco: Never Vaping Use Vaping status: Never Used Substance Use Topics Alcohol use: Not Currently Comment: none for 1 year Drug use: No A medically appropriate review of systems was performed with pertinent positives and negatives noted in the HPI, and all other systems negative. Physical Exam BP: (!) 136/93 Pulse: 104 Temp: 98.3 ??F (36.8 ??C) Resp: 18 SpO2: 99 % Physical Exam Vitals and nursing note reviewed. Constitutional: General: She is not in acute distress. Appearance: Normal appearance. She is not ill-appearing, toxic-appearing or diaphoretic. HENT: Head: Normocephalic and atraumatic. Right Ear: External ear normal. Left Ear: External ear normal. Nose: Nose normal. No congestion. Mouth/Throat: Mouth: Mucous membranes are moist. Pharynx: Oropharynx is clear. No oropharyngeal exudate. Eyes: Extraocular Movements: Extraocular movements intact. Conjunctiva/sclera: Conjunctivae normal. Pupils: Pupils are equal, round, and reactive to light. Neck: Comments: Minor discomfort upper neck musculature. No midline cervical pain. Cardiovascular: Rate and Rhythm: Normal rate. Pulses: Normal pulses. Heart sounds: Normal heart sounds. No murmur heard. No friction rub. Pulmonary: Effort: Pulmonary effort is normal. No respiratory distress. Breath sounds: No stridor. No wheezing, rhonchi or rales. Musculoskeletal: General: No deformity or signs of injury. Normal range of motion. Cervical back: Normal range of motion. Muscular tenderness present. No spinous process tenderness. Normal range of motion. Skin: General: Skin is warm. Capillary Refill: Capillary refill takes less than 2 seconds. Coloration: Skin is not pale. Findings: No bruising or erythema. Neurological: General: No focal deficit present. Mental Status: She is alert. Cranial Nerves: No cranial nerve deficit. Motor: No weakness. Psychiatric: Mood and Affect: Mood normal. Behavior: Behavior normal. ED Course Procedures Results for orders placed or performed during the hospital encounter of 07/15/24 (from the past 24 hour(s)) XR Cervical Spine 2/3 Views Narrative EXAM: XR CERVICAL SPINE 2/3 VIEWS LOCATION: [facility] DATE: 07/15/2024 INDICATION: Trauma. COMPARISON: None. Impression IMPRESSION: No prevertebral soft tissue swelling. Normal vertebral heights and alignment. Normal disc spaces and facets for age. Normal extraspinal structures. Comprehensive metabolic panel Result Value Ref Range Sodium 137 135 - 145 mmol/L Potassium 3.4 3.4 - 5.3 mmol/L Carbon Dioxide (CO2) 23 22 - 29 mmol/L Anion Gap 11 7 - 15 mmol/L Urea Nitrogen 20.2 (H) 6.0 - 20.0 mg/dL Creatinine 0.68 0.51 - 0.95 mg/dL GFR Estimate >90 >60 mL/min/1.73m2 Calcium 8.7 (L) 8.8 - 10.4 mg/dL Chloride 103 98 - 107 mmol/L Glucose 103 (H) 70 - 99 mg/dL Alkaline Phosphatase 220 (H) 40 - 150 U/L AST 43 0 - 45 U/L ALT 78 (H) 0 - 50 U/L Protein Total 8.1 6.4 - 8.3 g/dL Albumin 4.2 3.5 - 5.2 g/dL Bilirubin Total <0.2 <=1.2 mg/dL CBC with platelets differential Narrative The following orders were created for panel order CBC with platelets differential. Procedure Abnormality Status --------- ------ CBC with platelets and d...[[id number]] Abnormal Final result Please view results for these tests on the individual orders. Troponin T, High Sensitivity Result Value Ref Range Troponin T, High Sensitivity <6 <=14 ng/L CBC with platelets and differential Result Value Ref Range WBC Count 9.7 4.0 - 11.0 10e3/uL RBC Count 4.05 3.80 - 5.20 10e6/uL Hemoglobin 9.1 (L) 11.7 - 15.7 g/dL Hematocrit 29.4 (L) 35.0 - 47.0 % MCV 73 (L) 78 - 100 fL MCH 22.5 (L) 26.5 - 33.0 pg MCHC 31.0 (L) 31.5 - 36.5 g/dL RDW 19.4 (H) 10.0 - 15.0 % Platelet Count 406 150 - 450 10e3/uL % Neutrophils 68 % % Lymphocytes 23 % % Monocytes 8 % % Eosinophils 1 % % Basophils 0 % % Immature Granulocytes 0 % NRBCs per 100 WBC 0 <1 /100 Absolute Neutrophils 6.6 1.6 - 8.3 10e3/uL Absolute Lymphocytes 2.2 0.8 - 5.3 10e3/uL Absolute Monocytes 0.8 0.0 - 1.3 10e3/uL Absolute Eosinophils 0.1 0.0 - 0.7 10e3/uL Absolute Basophils 0.0 0.0 - 0.2 10e3/uL Absolute Immature Granulocytes 0.0 <=0.4 10e3/uL Absolute NRBCs 0.0 10e3/uL *Note: Due to a large number of results and/or encounters for the requested time period, some results have not been displayed. A complete set of results can be found in Results Review. Medications sodium chloride 0.9% BOLUS 1,000 mL (has no administration in time range) Critical care was not performed. Medical Decision Making The patient's presentation was of moderate complexity (an acute complicated injury). The patient's evaluation involved: review of external note(s) from 3+ sources (see separate area of note for details) review of 3+ test result(s) ordered prior to this encounter (see separate area of note for details) ordering and/or review of 3+ test(s) in this encounter (see separate area of note for details) Assessments & Plan (with Medical Decision Making) Sandi Lopez is a 38 year old female who has a longstanding history of POTS, drug-seeking behavior, borderline personality disorder, recurrent syncope of unclear etiology, and dehydration. Thepatient arrives today to the emergency department due to concern of dehydration. Upon arrival patient is alert. Presently afebrile and hemodynamically stable with minimal tachycardia. GCS 15. No visible signs of external trauma to the head or neck. Minor upper neck musculature discomfort. No midline tenderness to palpation. Low suspicion for cervical spine fracture. No evidence of intracranial pathology clinically. He did outpatient core CT imaging. Low suspicion for subarachnoid bleed, aneurysm, stroke, basilar artery occlusion warranting more advanced imaging. I reviewed her prior records with extensive history for syncope. I would plan for screening with electrolytes. Low suspicion for ACS, PE dysrhythmia. EKG obtained demonstrating normal sinus rhythm without signs of acute ST change,strain or ischemic type pattern. No PVCs or interval abnormality. I would plan for single troponin.She is without chest pain do not believe this requires serial markers. Clinically no sign of overt dehydration however she reports many similar episodes with the dehydration in the past would plan for IV hydration. No evidence of significant electrolyte abnormality, anemia leukocytosis explaining cause. Patient did receive hydration in the emergency department with overall improvement. Laboratory studies overall reassuring demonstrate no segment leukocytosis, anemia, electrolyte abnormality or elevation in troponin. Again low clinical suspicion for acute abnormality. Unfortunate patient has continued to have symptomatic issues which have been chronic. I do not believe she requires acute hospitalization for ongoing telemetry at this time. She is continue to work with gastroenterology and her primary care physician for assistance with placement of feeding tube. Should the patient have any change, progression or worsening symptoms we are certainly happy to reevaluate her emergently at any time. I have reviewed the nursing notes. I have reviewed the findings, diagnosis, plan and need for follow up with the patient. New Prescriptions No medications on file Final diagnoses: Syncope, unspecified syncope type JIM NUÑEZ MD 07/15/2024 [facility] EMERGENCY DEPARTMENT Jim Nuñez MD 07/16/24 0119 documented in this encounter Plan of Treatment Upcoming Encounters Date Type Department Care Team (Late st Contact Info) Description 02/20/2025 10:20 AM CDT Appointment [facility] Imaging [address] [place] [id number] Allyssa Justice MD [facility] [address] [place] [address] [place] [address] 02/27/2025 10:40 AM CDT Virtual Visit [facility] [address], [place] [address] [facility] [place] [phone] Allyssa Justice MD [facility] [address] [place] [address] documented as of this encounter Procedures Procedure Name Priority Date/Time Associated Diagnosis Comments CBC WITH PLATELETS AND DIFFERENTIAL STAT 07/16/2024 12:29 AM CDT TROPONIN T, HIGH SENSITIVITY STAT 07/16/2024 12:29 AM CDT CBC WITH PLATELETS & DIFFERENTIAL STAT 07/16/2024 12:29 AM CDT COMPREHENSIVE METABOLIC PANEL STAT 07/16/2024 12:29 AM CDT XR CERVICAL SPINE 2/3 VIEWS STAT 07/15/2024 11:52 PM CDT EKG 12-LEAD, TRACING ONLY STAT 07/15/2024 10:56 PM CDT documented in this encounter Results * (ABNORMAL) CBC with platelets and differential (07/16/2024 12:29 AM CDT) WBC Count 9.7 4.0 - 11.0 10e3/uL 07/16/2024 12:49 AM CDT [facility] RBC Count 4.05 3.80 - 5.20 10e6/uL 07/16/2024 12:49 AM CDT [facility] Hemoglobin 9.1(L) 11.7 - 15.7 g/dL 07/16/2024 12:49 AM CDT [facility] Hematocrit 29.4(L) 35.0 - 47.0 % 07/16/2024 12:49 AM CDT [facility] MCV 73(L) 78 - 100 fL 07/16/2024 12:49 AM CDT [facility] MCH 22.5(L) 26.5 - 33.0 pg 07/16/2024 12:49 AM CDT [facility] MCHC 31.0(L) 31.5 - 36.5 g/dL 07/16/2024 12:49 AM CDT [facility] RDW 19.4(H) 10.0 - 15.0 % 07/16/2024 12:49 AM CDT [facility] Platelet Count 406 150 - 450 10e3/uL 07/16/2024 12:49 AM CDT [facility] % Neutrophils 68 % 07/16/2024 12:49 AM CDT [facility] % Lymphocytes 23 % 07/16/2024 12:49 AM CDT [facility] % Monocytes 8 % 07/16/2024 12:49 AM CDT [facility] % Eosinophils 1 % 07/16/2024 12:49 AM CDT [facility] % Basophils 0 % 07/16/2024 12:49 AM CDT [facility] % Immature Granulocytes 0 % 07/16/2024 12:49 AM CDT [facility] NRBCs per 100 WBC 0 <1 /100 024 12:49 AM CDT [facility] Absolute Neutrophils 6.6 1.6 - 8.3 10e3/uL 07/16/2024 12:49 AM CDT [facility] Absolute Lymphocytes 2.2 0.8 - 5.3 10e3/uL 07/16/2024 12:49 AM CDT [facility] Absolute Monocytes 0.8 0.0 - 1.3 10e3/uL 07/16/2024 12:49 AM CDT [facility] Absolute Eosinophils 0.1 0.0 - 0.7 10e3/uL 07/16/2024 12:49 AM CDT [facility] Absolute Basophils 0.0 0.0 - 0.2 10e3/uL 07/16/2024 12:49 AM CDT [facility] Absolute Immature Granulocytes 0.0 <=0.4 10e3/uL 07/16/2024 12:49 AM CDT [facility] Absolute NRBCs 0.0 10e3/uL 07/16/2024 12:49 AM CDT [facility] Blood BLOOD SPECIMEN / Unknown Venipuncture / Unknown 07/16/2024 12:29 AM CDT 07/16/2024 12:45 AM CDT us Jim Nuñez MD LAB - BLOOD ORDERABLES F inal Result UR [facility] Acute Care Lab [address] [facility] [place] [address] * Troponin T, High Sensitivity (07/16/2024 12:29 AM CDT) Pathologist [facility] Troponin T, High Sensitivity <6 <=14 ng/L 07/16/2024 1:11 AM CDT [facility] Comment: Either a High [...] 12:29 AM CDT 07/16/2024 12:45 AM CDT Jim Nuñez MD LAB - BLOOD ORDERABLES F inal Result UR [facility] Acute Care Lab [address] [facility] [place] [address] * (ABNORMAL) Comprehensive metabolic panel (07/16/2024 12:29 AM CDT) Pathologist [facility] Sodium 137 135 - 145 mmol/L 07/16/2024 [...] 1:11 AM CDT [facility] Comment:eGFR calculated us2020 CKD-EPI equation. Calcium 8.7(L) 8.8 - 10.4 [...] 12:29 AM CDT 07/16/2024 12:45 AM CDT Jim Nuñez MD LAB - BLOOD ORDERABLES F inal Result UR [facility] Acute Care Lab [address] [facility] [place] [address], [facility] * XR Cervical Spine 2/3 Views (07/15/2024 11:52 PM CDT) Anatomical Region Laterality Modality Spine Computed Radiogr aphy 07/15/2024 11:5 2 PM CDT Impressions 07/15/2024 11:56 PM CDT IMPRESSION: No prevertebral soft tissue swelling. Normal vertebral heights and alignment. Normal disc spaces and facets for age. Normal extraspinal structures. Narrative 07/15/2024 11:56 PM CDT EXAM: XR CERVICAL SPINE 2/3 VIEWS LOCATION: [facility] DATE: 07/15/2024 INDICATION: Trauma. COMPARISON: None. Procedure Note Sg House MD - 07/15/2024 EXAM: XR CERVICAL SPINE 2/3 VIEWS LOCATION: [facility] DATE: 07/15/2024 INDICATION: Trauma. COMPARISON: None. IMPRESSION: No prevertebral soft tissue swelling. Normal vertebral heightsand alignment. Normal disc spaces and facets for age. Normal extraspinalstructures. Jim Nuñez MD IMG DIAGNOSTIC IMAGING O RDERABLES Final Result * EKG 12-lead, tracing only (07/15/2024 10:56 PM CDT) Systolic Blood Pressure mmHg RADIOLOGY RESULTS Diastolic Blood Pressure mmHg RADIOLOGY RESULTS Ventricular Rate 94 BPM RAD IOLOGY RESULTS Atrial Rate 94 BPM RADIOLOG Y RESULTS MO Interval 180 ms RADIOLOG Y RESULTS QRS Duration 80 ms RADIOLO GY RESULTS QT 358 ms RADIOLOGY RESULTS QTc 447 ms RADIOLOGY RESULTS P Maxie 31 degrees RADIOLOGY RESULTS R AXIS 19 degrees RADIOLOGY RESULTS T Maxie 19 degrees RADIOLOGY RESULTS Interpretation ECG Sinus rhythm Cannot rule out Anterior infarct , age undetermined Abnormal ECG Unconfirmed report - interpretation of this ECG is computer generated - see medical record for final interpretation Confirmed by - EMERGENCY ROOM, PHYSICIAN ([id number]), index editor MICHAEL GARZA ([id number]) on 07/16/2024 9:20:21 AM RADIOLOGY RESULTS 07/15/2024 10:5 6 PM CDT 07/16/2024 9:20 AM CDT Jim Nuñez MD ECG ORDERABLES Edited R esult - Final RADIOLOGY RESULTS documented in this encounter Visit Diagnoses Diagnosis Syncope, unspecified syncope type documented in this encounter Active and Recently Administered Medications Times are shown in CDT. Scheduled Medication Order 07/14/2024 07/15/2024 07/16/2024 sodium chloride 0.9% BOLUS 1,000 mL Intravenous, 1,000 mL, ONCE, at 1,000 mL/hr, Administer over 1 Hours, On 07/15/24 at 2255, For 1 dose 2255 (Canceled Entry - Provi rosita: Orders Generic Provider - Comment: Automatically canceled at discontinue of medication order) 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 Assessment Noted Time PHQ-9 Depression Total Score: 4 02/21/20 24 1:54 PM CDT documented as of this encounter Care Teams Mattress Packer Relationship Specialty Start [place] [address] [address] [address] PCP - General Family Medicine 04/22/23 [place] [address] [address] [address] Assigned Pain Medication Provider 12/07/22 [place] [address] [address] [address] Assigned PCP 01/23/23 [place] [address] [place] [address] [place] [address] Assigned Musculoskeletal Provider 01/23/23 09/19/24 Gregorio Dalton PA-C [address] [address] Assigned Surgical Provider 05/22/23 07/20/24 Kingsley Garcia MD [address] [place] [address] Assigned Heart and Vascular Provider 08/07/23 [place] [address] [place] [address] Family Medicine 09/10/23 Master Shea PA-C [address] [place] [address] Physician [employer] Gastroenterology 09/10/23 Allyssa Justice MD [facility] [address] [place] [address] [place] [place] [address] Hematology & Oncology 12/10/23 Genaro Christian MD [address] [place] [address] Cardiovascular Disease 12/22/23 Master Shea PA-C [address] [place] [address] Assigned Gastroenterology Provider 12/23/23 Sienna Guillermo DO [address] [place] [address] Physician Cardiovascular Disease 01/18/24 Allyssa Justice MD [facility] [address] [place] [address] [place] [address] Assigned Cancer Care Provider 03/21/24 documented as of this encounter
--- OUTSIDE RECORDS SUMMARY | 2024-09-21 22:41 | XMS_ITS | Encounter Summary ---
Author Organization Success Address [address] [place] [address] Care Team Providers Care Delivery Crew Member Name Role Phone Segundo Mcclelland MD Unavailable [phone] Segundo Mcclelland MD Unavailable [phone] Qamar Jackson MD Unavailable Segundo Mcclelland MD Primary Care Provider + Gregorio Dalton PA-C Unavailable [phone] Kingsley Garcia MD Unavailable + [phone] Segundo Mcclelland MD Unavailable [phone] Master Shea PA-C Unavailable Allyssa Justice MD Unavailable [phone] Genaro Christian MD Unavailable [phone] Master Shea PA-C Unavailable Sienna Guillermo DO Unavailable [phone] Allyssa Justice MD Unavailable [phone] Reason for Referral * Consultation (Priority: 1-2 Weeks) - Pending Review Specialty Diagnoses / Procedures Referred By Contac t Referred To Contact Diagnoses Altered mental status, unspecified altered mental status type Pennie Bernal MD [address] [place] [id number] Phone: tel: fax: Referral ID Status Reason Start Date Expiration Date V isits Requested Visits Authorized [id number] Pending Review 07/19/2024 07/19/2025 1 1 Question Answer Reason for Referral: General Neurology Scheduling Instructions: [facility] will call you to coordinate your care as prescribed by your provider. If you don't hear from a call center support representative within 2 business days, please call . Additional Information: findings on MRI which could represent demyelinating disease - needs urgent workup please Comments Please be aware that coverage of these services is subject to the terms and limitations of your health insurance plan. Call member services at your health plan with any benefit or coverage questions. [facility] will call you to coordinate your care as prescribed by your provider. If you don't hear from a call center support representative within 2 business days, please call . Reason for Visit * Reason Comments Stroke Symptoms Encounter Details Date Type Department Care Team (Late st Contact Info) Description 07/18/2024 10:43 PM CDT - 07/19/2024 6:19 AM CDT Emergency [facility] Emergency Department [address] [place] [phone] Miguel Puente MD [address] [place] [address] [id number] Pennie Bernal MD [address] [place] [address] [phone] Altered mental status, unspecified altered mental status type; Bleeding from left ear Discharge Disposition: Home or Self Care Social [...] in an abandoned building, in an overnight retirement, or couch-surfing.) Yes 08/26/2023 Are you worried [...] AM CDT Legal Sex Female 3:29 AM CUTTER OUT Gender Identity Female 05/26/2021 10:37 AM CDT Sexual Orientation Straight 05/26/2021 10 :37 AM CDT Occupation Industry Job Start Date Job End Date unemployed Not on file Not on file Not on file Not on file Not on file Not on file Not on file documented as of this encounter Last Filed Vital Signs Vital Sign Reading Time Taken Comments Blood Pressure 98/77 07/19/2024 6:11 AM CDT Pulse 121 07/19/2024 1:00 AM CDT Temperature 37.1 ??C (98.8 ??F) 07/19/2024 6:11 AM CD T Respiratory Rate 15 07/19/2024 6:11 AM CDT Oxygen Saturation 100% 07/19/2024 6:11 AM CDT Inhaled Oxygen Concentration - - Weight - - Height - - Body Mass Index - - documented in this encounter Discharge Instructions * Discharge Instructions* Pennie Bernal MD - 07/19/2024 5:14 AM CDT Use the ear drop as prescribed. Follow up with your clinic doctor as soon as possible. As discussed, your MRI is abnormal and it's important that you follow up with a neurologist. Do this as soon as possible. You should get a call to schedule an appointment. Return with any worsening or concerns. documented in this encounter Medications at Time [...] anxiety naloxone (NARCAN) 4 MG/0.1ML nasal spray Alexander 4 mg into one nostril alternating nostrils once as needed for opioid reversal 06/28/2023 pantoprazole (PROTONIX) 40 MG EC tablet Take 40 mg by mouth daily sodium chloride 0.9% infusionIndication s:Gastroparesis Inject 1,000 mLs into the vein as needed for other (Wednesday with IV antibiotic) 52952 mL 06/02/2024 sucralfate (CARAFATE) 1 GM tabletIndications: Kathleen-Mustafa tear Take 1 tablet (1 g) by mouth 4 times daily 120 tablet 1 06/09/2024 zolpidem (AMBIEN) 10 MG tablet Take 10 mg by mouth At Bedtime 12/17/2022 ofloxacin (FLOXIN) 0.3 % otic solution Place 10 drops Into the left ear daily for 7 days 5 mL 07/19/2024 ferrous sulfate (SARA-IN-JESSICA) 75 (15 FE) MG/ML oral dropsIndications:A nemia due to blood loss, acute Take 5 mLs (75 mg) by mouth daily 50 mL 1 06/09/2024 4 documented as of this encounter Progress Notes * Dean Limon MD - 07/19/2024 3:55 AM CDT [facility] Stroke Telephone Note I was called by Miguel Puente on 07/19/24 regarding patient Sandi Lopez. The patient is a 38 year old female who is here for aphasia and L sided weakness. . Vitals BP: 130/81 Pulse: (!) 121 Resp: [address] head: neg for hemorrhage CTA head/neck: no LVO Impression aphasia left hemiparesis Recommendations Mri brain was neg for acute stroke, recommend general neurology consult for further evaluation of her aphasia My recommendations are based on the information provided over the phone by Sandi Lopez's in-person providers. They are not intended to replace the clinical judgment of her in-person providers. I was not requested to personally see or examine the patient at this time. The Stroke/Neurocritical Care Staff is Dr. Albarado. Dean Limon MD Neurocritical Care Fellow Pager: Kimani documented in this encounter Consult Notes * Dean Limon MD - 07/19/2024 12:49 AM CDT Images from the original note were not included. [facility] Stroke Code Note History of Present Illness Chief Complaint: Stroke Symptoms Sandi Lopez is a 38 year old female with psychiatric illnesses presents with aphasia and left sided weakness. She states that she was in shower at 2130 when she had a sharp pain in her neck after which she had aphasia and left sided weakness. She states that she off her Eliquis for the pastcouple of months Past Medical History Stroke risk factors: Preadmission antithrombotic regimen: none Modified Terrell Score (Pre-morbid) 0-No deficits Assessment and Plan 1. Aphasia 2. L sided weakness Intravenous Thrombolysis Not given due to: - stroke mimic: Endovascular Treatment Not initiated due to absence of proximal vessel occlusion Plan: MRI Brain w/wo con stat The Stroke Staff is Dr. Albarado. Dean Limon MD Vascular Neurology Fellow To page me or covering stroke neurology help desk team leader, click here: [employer] Choose Tube Machine Operator Helper tab at top, then select NEUROLOGY/ALL SITES from middle drop- down box, press Enter, then look for stroke or telestroke for your site. Imaging/Labs (personally reviewed ) CT head: no hemorrhage CTA head/neck: no lvo Physical Examination BP: 126/86 Pulse: (!) 127 Resp: 18 SpO2: 99 % Wt Readings from Last 2 Encounters: 07/09/24 107.2 kg (236 lb 6.4 oz) 07/05/24 98.9 kg (218 lb) Neuro Exam Mental Status: alert, oriented x 1, follows commands, aphasia Cranial Nerves: visual starks intact (tested by nurse), EOMI with normal smooth pursuit, facial sensation intact and symmetric (tested by nurse), facial movements symmetric, hearing not formally tested but intact to conversation, no dysarthria, shoulder shrug equal bilaterally, tongue protrusion midline Motor: Within the limitation of poor effort antigravity in all 4 ext Reflexes: unable to test (telestroke) Sensory: decreased to light touch in left arm Coordination: normal kgcszb-wg-uztr and tkgp-st-ypki bilaterally without dysmetria Station/Gait: nt Stroke Scales NIHSS 1a. Level of Consciousness 0-->Alert, keenly responsive 1b. LOC Questions 1-->Answers one question correctly 1c. LOC Commands 0-->Performs both tasks correctly 2. Best Gaze 0-->Normal 3. Visual 0-->No visual loss 4. Facial Palsy 0-->Normal symmetrical movements 5a. Motor Arm, Left 2-->Some effort against gravity, limb cannot get to or maintain (if cued) 90(or 45) degrees, drifts down to bed, but has some effort against gravity 5b. Motor Arm, Right 0-->No drift, limb holds 90 (or 45) degrees for full 10 secs 6a. Motor Leg, Left 1-->Drift, leg falls by the end of the 5-sec period but does not hit bed 6b. Motor Leg, right 1-->Drift, leg falls by the end of the 5-sec period but does not hit bed 7. Limb Ataxia 0-->Absent 8. Sensory 1-->Hibh-kd-yxqooblp sensory loss, patient feels pinprick is less sharp or is dull onthe affected side, or there is a loss of superficial pain with pinprick, but patient is aware of being touched 9. Best Language 2-->Severe aphasia, all communication is through fragmentary expression, great need for inference, questioning, and guessing by the listener. Range of information that can be exchanged is limited, listener carries burden of. . . (see row details) 10. Dysarthria 2-->Severe dysarthria, patients speech is so slurred as to be unintelligible in the absence of or out of proportion to any dysphasia, or is mute/anarthric 11. Extinction and Inattention 0-->No abnormality Total 10 (07/19/24 0054) Labs CBC Lab Results Component Value Date HGB 10.1 (L) 07/18/2024 HCT 32.8 (L) 07/18/2024 WBC 10.1 07/18/2024 PLT 329 07/18/2024 BMP Lab Results Component Value Date NA 136 07/18/2024 POTASSIUM 4.0 07/18/2024 CHLORIDE 102 07/18/2024 CO2 21 (L) 07/18/2024 BUN 13.7 07/18/2024 CR 0.72 07/18/2024 GLC 94 07/18/2024 KATERINA 9.1 07/18/2024 INR INR Date Value Ref Range Status 07/18/2024 1.07 0.85 - 1.15 Final 05/26/2024 1.01 0.85 - 1.15 Final 04/22/2024 0.89 0.85 - 1.15 Final Data Stroke Code Data (for stroke code with tele) Stroke code activated 07/18/24 2326 First stroke provider response 07/18/24 2326 Video start time 07/18/24 0027 Video end time 07/19/24 0044 Last known normal 07/18/24 2130 Time of discovery (or onset of symptoms) 07/18/[address] read by Stroke Neuro Provider 07/18/24 2350 Was stroke code de-escalated? Telestroke Service Details Type of service telemedicine diagnostic assessment of acute neurological changes Reason telemedicine is appropriate patient requires assessment with a specialist for diagnosis and treatment of neurological symptoms Mode of transmission secure interactive audio and video communication per Maria Originating site (patient location) [facility] Distant site (provider location) Provider remote site Clinically Significant Risk Factors Present on Admission # Drug Induced Coagulation Defect: home medication list includes an anticoagulant medication # Anemia: based on hgb <11 # Obesity: Estimated body mass index is 38.16 kg/m?? as calculated from the following: Height as of 07/08/24: 1.676 m (5' 6). Weight as of 07/09/24: 107.2 kg (236 lb 6.4 oz). 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 Patient apparently was found unresponsive about an hour prior to arrival. Pt was unable to talk but able to write on paper and told us the history. Pt was found in the shower on the ground by her daughter who sent her in via Ly[employer] with a note. On arrival to ED she was noted to have L sided weakness and difficulty speaking and aphasia for which stroke code was activated. CT CTA unremarkable On examination pt was noted to have left arm and leg weakness which appeared effort dependent. Whenasked questions pt would hesitate and at times stutter but then was able to use her right hand to write answers on the paper. Based on review of written answers on paper the spelling and sentences were correct without any error. Impression L sided weakness Speech changes Plan Obtain MRI brain to rule out acute ischemia. If MRI is negative then no further stroke work up needed. I saw Sandi Lopez on 07/19/24 as a STROKE CODE activation. Sandi Lopez was in critical condition due to acute onset neurologic deficits consisting of L sided weakness and speech changes due to suspected ischemic or hemorrhagic stroke--she was at high risk of neurologic deteriorationfrom complications of stroke or stroke reperfusion therapy. Both intravenous thrombolysis and endovascular thrombectomy were considered, but were ultimately deferred upon completion of her emergent clinical evaluation and review of her stat neuroimaging. The stroke code was de-escalated at that time. I spent 50 minutes critical care decision-making time emergently evaluating and managing this patient's stroke code activation I saw the Sandi Lopez on 07/19/24 with the fellow. I reviewed all laboratory studies and neuroimaging. I discussed the plan with the fellow and agree with their note. I have personally spent a total of 50 minutes consulting with her medical providers and assessing the patient today, with more than 50% of this time spent in consultation, coordination of care, and discussion with the patient and/or family regarding diagnostic results, prognosis, symptom management, risks and benefits of management options, and development of the plan of care of above. Penny Albarado MD Department of Neurology Division of Stroke documented in this encounter ED Notes * Pennie Bernal MD - 07/19/2024 5:15 AM CDT The patient was accepted at shift change signout with a plan for me to follow-up on the MRI and discussed with the stroke fellow. MRI resulted: IMPRESSION: 1. No acute/subacute infarct, mass, acute [...] or recent neurosurgical intervention (including lumbar puncture). I did speak with the stroke fellow who also reviewed the images, did not feel that she was having any evidence of an acute stroke. He did recommend discussion with general neurology. I did discuss with the general neurology attending, Dr. Kowalski, who also did review the images. Of note, I had repeated her neuroexam. The patient continues to decline to speak. She does not make attempts to speak, rather chooses to write. She seems to have some breakaway weakness, but with repeated encouragement, strength seems fairly equal bilaterally. The general neurologist did agree that the MRI is not normal, but states that there did not appear to be any emergent findings. He did not feel she needed an in person neurology evaluation, did not recommend she be transferred to the [place] for this ladarius emergent basis. He felt that, as there is no comment of enhancement on the final reading, that she can safely be discharged with a plan for neurology outpatient evaluation. I did discuss the importance of this with the patient and she acknowledges understanding. She does have a long history of repeated ED visits, and there is some concern that her lack of speaking has a more functional component. Of note, she did become fixated on the fact that she felt that her Dilaudid did not dissolve completely in her mouth (she reports that she puts it under her tongue to dissolve rather than swallowing it), states it fell in the bed. The nurse did thoroughly examine the bed, sheets, her clothing and other contents, no pill was identified. The patient was upset about this. She was tearful for a while. She then reported bleeding from her left ear. On evaluation there is some blood around the ear.This was cleaned as best as she would allow, she expressed that this was uncomfortable. The TM and more internal portion of the external auditory canal was unremarkable appearing. It appears that there is likely an abrasion on the more external component of the external auditory canal, though I cannot exclude the possibility of inflammation. I will go ahead and give a prescription for ofloxacin otic drops that she may have otitis externa. The patient did ultimately fall asleep, now appears calm. Again, no evidence to suggest true medical cause for her lack of speaking at this time, and I do wonder if there is a functional component. She will be discharged at this time. She is encouraged to follow-up with both primary care as well as neurology, return with worsening or concerns. Dictation Disclaimer: Some of this Note has been completed with voice- recognition dictation software. Although errors are generally corrected real- time, there is the potential for a rare error to be present in the completed chart. Pennie Bernal MD 07/19/24 0520 * Opal Win RN - 07/19/2024 3:14 AM CDT Pt arrived, tier 1 stroke code called, multiple piv attempts with and without ultrasound guidance, which were ultimately unsuccessful. inserted a central line for imaging and medication administration. Pt was taken to imaging, met with tele doc for stroke code, and went to further imaging. When pt returned from final imaging, pt reported to this RN by written note that the pt took a pain pilland it dropped out of her mouth and fell into the bed. This RN checked the bed and no pill was present. Pt then reported by written note that the pill fell onto the ground in MRI. This press writer spoke with the 2 RN's present with the pt in MRI about a pain pill and they reported that there was no pill in the pt's bed or on the ground in MRI and that one of the RN's placed the pill under the pt's tongue and saw her ingest it. aware. Pt now reporting by written message that she would like to leave. aware. * Opal Win RN - 07/18/2024 10:53 PM CDT Pt arrived via lyft with a note on her phone from her daughter saying I found her in the shower passed out kind of and she wasn't able to talk. Her face looked funny and I called a lyft and helped her to it but I had to hold her up. She is trying to talk but isn't able and her feet seem unstable. She was crying that her neck or ear or face hurt. Please Help her. Pt added to the note I can think the words don't work right. Triage Assessment (Adult) Row Name 07/18/24 5986 Triage Assessment Airway WDL WDL Respiratory WDL Respiratory WDL WDL Skin Circulation/Temperature WDL Skin Circulation/Temperature WDL WDL Cardiac WDL Cardiac WDL WDL Peripheral/Neurovascular WDL Peripheral Neurovascular WDL WDL Cognitive/Neuro/Behavioral WDL Cognitive/Neuro/Behavioral WDL X Speech garbled Jody Coma Scale Best Eye Response 4-->(E4) spontaneous Best Motor Response 6-->(M6) obeys commands Best Verbal Response 5-->(V5) oriented P[place]ott Coma Scale Score 15 * Miguel Puente MD - 07/18/2024 10:40 PM CDTAssociated Order(s): - Central Line ED Provider Note [facility] History Chief Complaint Patient presents with Stroke Symptoms HPI Sandi Lopez is a 38 year old female who has a well-documented history of chronic underlyingillness, drug-seeking behavior and ED recidivism, and borderline personality and factitious disorder who presents to the emergency department for stroke symptoms. Patient apparently was found unresponsive about an hour prior to arrival. At that point she was having difficulty speaking. She currently has pain in the left side of her face presumably from a fall. Denies pain anywhere else. History limited due to aphasia She has not had eliquis in over one month. Past Medical History Past Medical History: Diagnosis Date Abnormal Pap smear [place]/2 LEEPs age 16 Allergic rhinitis Anemia 2011 [...] Procedure: ESOPHAGOGASTRODUODENOSCOPY; Surgeon: Meg Lee MD; Location: [facility]; Service: ESOPHAGOSCOPY, GASTROSCOPY, DUODENOSCOPY (EGD), COMBINED N/A 02/13/2016 Procedure: ESOPHAGOGASTRODUODENOSCOPY; Surgeon: Meg Lee MD; Location: [facility] OR; Service: ESOPHAGOSCOPY, GASTROSCOPY, DUODENOSCOPY (EGD), [...] heel debridement; Surgeon: Farrah Nguyen DPM; Location: [facility] OR LARYNGOSCOPY N/A 02/14/2016 Procedure: DIRECT LARYNGOSCOPY, UPPER ESOPHAGOSCOPY, NASAL ESOPHAGOSCOPY, CONTROLLED EPITAXIS; Surgeon: Declan Mata MD; Location: [facility]; Service: OOPHORECTOMY Right REMOVE PORT VASCULAR [...] none for 1 year Drug use: No Past medical history, past surgical history, medications, allergies, family history, and social history were reviewed with the patient. No additional pertinent items. A medically appropriate review of systems was performed with pertinent positives and negatives noted in the HPI, and all other systems negative. Physical Exam Physical Exam Physical Exam Constitutional: oriented to person, place, and time. appears well-developed and well-nourished. HENT: Head: Normocephalic and atraumatic. Neck: Normal range of motion. Pulmonary/Chest: Effort normal. No respiratory distress. Cardiac: No murmurs, rubs, gallops. RRR. Abdominal: Abdomen soft, nontender, nondistended. No rebound tenderness. MSK: Long bones without deformity or evidence of trauma Neurological: Alert. Aphasia present. No facial droop. Left hip strength 2 out of 5, right hip strength normal. Lower leg strength normal. Lab Instructor strength decreased on the left compared to the right. Shoulder shrug normal. Raises eyebrows symmetrically. Skin: Skin is warm and dry. Psychiatric: normal mood and affect. behavior is normal. Thought content normal. ED Course, Procedures, & Data [facility] -Central Line Date/Time: 07/19/2024 12:49 AM Performed by: Miguel Puente MD Authorized by: Miguel Puente MD Emergent condition/consent implied PRE-PROCEDURE DETAILS: Hand hygiene: Hand hygiene performed prior to insertion Sterile barrier technique: All elements of maximal sterile technique followed Skin preparation: 2% chlorhexidine Skin preparation agent: Skin preparation agent completely dried prior to procedure ANESTHESIA Local Anesthetic: Lidocaine 1% with epinephrine Anesthetic Total (mL): 3 PROCEDURE DETAILS: Location: R femoral Site selection rationale: Need for IV contrast Patient position: Flat Procedural supplies: Triple lumen Catheter size: 7 Fr Landmarks identified: yes Ultrasound guidance: yes Sterile ultrasound techniques: Sterile gel and sterile probe covers were used Number of attempts: 1 Successful placement: yes POST PROCEDURE DETAILS: Post-procedure: Dressing applied and line sutured Assessment: Blood return through all ports and free fluid flow PROCEDURE Patient Tolerance: Patient tolerated the procedure well with no immediate complications EKG Interpretation: Interpreted by Miguel Puente MD Time reviewed: 2250 Symptoms at time of EKG: chest pain Rhythm: normal sinus Rate: normal [place]: normal Ectopy: none Conduction: normal ST Segments/ T Waves: No ST-T wave changes Q Waves: none Comparison to prior: Unchanged Clinical Impression: normal EKG No results found for any visits on 07/18/24. Medications - No data to display Labs Ordered and Resulted from Time of ED Arrival to Time of ED Departure - No data to display No orders to display Critical Care Addendum My initial assessment, based on my review of vital signs, focused history, and physical exam, established a high suspicion that Sandi Lopez has ischemic or hemorrhagic stroke, which requires immediate intervention, and therefore she is critically ill. After the initial assessment, the care team achieved central venous access and consulted with neurology to provide stabilization care. Due to the critical nature of this patient, I reassessed vital signs, physical exam, and neurologic status multiple times prior to her disposition. Time also spent performing documentation, reviewing test results, and discussion with consultants. Critical care time (excluding teaching time and procedures): 45 minutes. Assessment & Plan MDM Patient resenting with possible stroke due to aphasia and difficulty lifting left leg and some weakness in the left arm. Stroke code was called. There were significant delays due to difficulty with access. Multiple nurses tried several lines with him without ultrasounds. A central line had to be placed which caused significant delays going to CT scan. CT CTA unremarkable. Neurology also was consulted who would like an MRI, this is pending at this point, no indication for tPA emergently at this point. Will sign out to the night provider pending MRI. I have reviewed the nursing notes. I have reviewed the findings, diagnosis, plan and need for follow up with the patient. New Prescriptions No medications on file Final diagnoses: Altered mental status, unspecified altered mental status type Miguel Puente MD [facility] EMERGENCY DEPARTMENT 07/18/2024 Miguel Puente MD 07/19/24 0102 documented in this encounter Plan of Treatment Upcoming Encounters Date Type Department Care Team (Late st Contact Info) Description 02/20/2025 10:20 AM CDT Appointment [facility] Imaging [address] [place] [address] Allyssa Justice MD [facility] [address] [address] [place] [address] 02/27/2025 10:40 AM CDT Virtual Visit [facility] [address], [address] [address] [facility] [place] [phone] Allyssa Justice MD [facility] [address] [place] [address] Scheduled Referrals Name Type Priority Associated Diagnoses Orde r Schedule Adult Neurology Charging Manipulator Referral Referral Priority: 1-2 Weeks Altered mental status, unspecified altered mental status type Expected: 07/19/2024 (Approximate), Expires: 07/19/2025 documented as of this encounter Procedures Procedure Name Priority Date/Time Associated Diagnosis Comments MR BRAIN W/O & W CONTRAST STAT 07/19/2024 2:43 AM CDT CENTRAL LINE Routine 07/19/2024 12:49 AM CDT CTA HEAD NECK W CONTRAST STAT 07/19/2024 12:[address] HEAD W/O CONTRAST STAT 07/19/2024 12:10 AM CDT HCG QUALITATIVE STAT 07/19/2024 12:01 AM CDT EXTRA TUBE STAT 07/18/2024 11:59 PM CDT EXTRA PURPLE TOP TUBE STAT 07/18/2024 11:59 PM CDT EXTRA GREEN TOP (LITHIUM HEPARIN) TUBE STAT 07/18/2024 11:59 PM CDT INR STAT 07/18/2024 11:59 PM CDT PARTIAL THROMBOPLASTIN TIME STAT 07/18/2024 11:59 PM CDT CBC WITH PLATELETS AND DIFFERENTIAL STAT 07/18/2024 11:21 PM CDT TROPONIN T, HIGH SENSITIVITY STAT 07/18/2024 11:21 PM CDT CBC WITH PLATELETS & DIFFERENTIAL STAT 07/18/2024 11:21 PM CDT BASIC METABOLIC PANEL STAT 07/18/2024 11:21 PM CDT GLUCOSE BY METER STAT 07/18/2024 10:4 5 PM CDT documented in this encounter Results * MR Brain w/o & w Contrast [...] MR BRAIN W/O and W CONTRAST LOCATION: DATE: 07/19/2024 INDICATION: Left-sided weakness and aphasia. [...] MR BRAIN W/O and W CONTRAST LOCATION: DATE: 07/19/2024 INDICATION: Left-sided weakness and aphasia. [...] intervention (including lumbar puncture). Dean Limon MD IM MRI ORDERABLES Final Result * -Central Line (07/19/2024 12:49 AM CDT) Narrative Miguel Puente MD - 07/19/2024 12:49 AM CDT Miguel Puente MD ? 07/19/2024 ??1:02 AM [facility] -Central Line Date/Time: 07/19/2024 12:49 AM [...] CONTRAST, CTA HEAD NECK W CONTRAST LOCATION: DATE/TIME: 07/19/2024 12:10 AM CDT INDICATION: Code [...] aneurysm, or high flow vascular malformation. Standard [place] anatomy. POSTERIOR CIRCULATION: No stenosis/occlusion, [...] CONTRAST, CTA HEAD NECK W CONTRAST LOCATION: DATE/TIME: 07/19/2024 12:10 AM CDT INDICATION: Code [...] stenosis/occlusion, aneurysm, or high flowvascular malformation. Standard [place] anatomy. POSTERIOR CIRCULATION: No stenosis/occlusion, [...] CDT with thepreliminary report. Miguel Puente MD [facility] CT ORDERABLES Final Result * CT Head w/o Contrast (07/19/2024 12:10 AM CDT) Anatomical Region Laterality Modality Head, [...] CONTRAST, CTA HEAD NECK W CONTRAST LOCATION: DATE/TIME: 07/19/2024 12:10 AM CDT INDICATION: Code [...] aneurysm, or high flow vascular malformation. [place] anatomy. POSTERIOR CIRCULATION: No stenosis/occlusion, [...] CONTRAST, CTA HEAD NECK W CONTRAST LOCATION: DATE/TIME: 07/19/2024 12:10 AM CDT INDICATION: Code [...] stenosis/occlusion, aneurysm, or high flowvascular malformation. Standard [place] anatomy. POSTERIOR CIRCULATION: No stenosis/occlusion, [...] * hCG Qualitative (07/19/2024 12:01 AM CDT) hCG Serum Qualitative Negative Negative [place] 07/19/2024 12:20 AM CDT [facility] Comment:This test is for scr eening purposes. Results should be interpreted along with the clinical picture. Confirmation testing is available if warranted by ordering [id number], HCG Quantitative . Blood BLOOD SPECIMEN / Unknown Venipuncture / Unknown 07/19/2024 12:01 AM CDT 07/19/2024 12:07 AM CDT Miguel Puente MD LAB - BLOOD ORDERABLES F inal Result UR LABORATORY [facility] [address] [place] [address], [address] [phone] * Extra Purple Top Tube (07/18/2024 11:59 PM CDT) Hold Specimen [facility] 07/19/2024 1:16 AM CDT UR LAB[facility] Blood BLOOD SPECIMEN / Unknown Venipuncture / Unknown 07/18/2024 11:59 PM CDT 07/19/2024 12:10 AM CDT Miguel Puente MD LAB - BLOOD ORDERABLES F inal Result UR LABORATORY [facility] [address] [place] [address], [address] [phone] * Extra Green Top (Starke Heparin) Tube (07/18/2024 11:59 PM CDT) Hold Specimen [facility] 07/19/2024 1:16 AM CDT UR LAB[facility] Blood BLOOD SPECIMEN / Unknown Venipuncture / Unknown 07/18/2024 11:59 PM CDT 07/19/2024 12:10 AM CDT Miguel Puente MD LAB - BLOOD ORDERABLES F inal Result UR LABORATORY [facility] [address] [place] [address], [address] [phone] * Partial thromboplastin time (07/18/2024 11:59 PM CDT) aPTT 27 22 - 38 Seconds 07/19/2024 12:18 AM CDT UR [facility] Blood BLOOD SPECIMEN / Unknown Venipuncture / Unknown 07/18/2024 11:59 PM CDT 07/19/2024 12:07 AM CDT us Miguel Puente MD LAB - BLOOD ORDERABLES F inal Result UR LABORATORY [facility] [address] [facility], [address] * INR (07/18/2024 11:59 PM CDT) [facility] INR 1.07 0.85 - 1.15 07/19/2024 12:17 AM CDT UR LAB[facility] Blood BLOOD SPECIMEN / Unknown Venipuncture / Unknown 07/18/2024 11:59 PM CDT 07/19/2024 12:07 AM CDT us Miguel Puente MD LAB - BLOOD ORDERABLES F inal Result Performing Organization Address [facility]/ZIP Co de Phone Number UR LABORATORY [facility] [address] [facility], [address] * (ABNORMAL) CBC with platelets and differential (07/18/2024 11:21 PM CDT) [facility] WBC Count 10.1 4.0 - 11.0 10e3/uL 07/18/2024 11:49 PM CDT UR [facility] RBC Count 4.51 3.80 - 5.20 10e6/uL 07/18/2024 11:49 PM CDT UR [facility] Hemoglobin 10.1(L) 11.7 - 15.7 g/dL 07/18/2024 11:49 PM CDT UR [facility] Hematocrit 32.8(L) 35.0 - 47.0 % 07/18/2024 11:49 PM CDT [facility] MCV 73(L) 78 - 100 fL 07/18/2024 11:49 PM CDT [facility] MCH 22.4(L) 26.5 - 33.0 pg 07/18/2024 11:49 PM CDT [facility] MCHC 30.8(L) 31.5 - 36.5 g/dL 07/18/2024 11:49 PM CDT UR [facility] RDW 19.9(H) 10.0 - 15.0 % 07/18/2024 11:49 PM CDT [facility] Platelet Count 329 150 - 450 10e3/uL 07/18/2024 11:49 PM CDT [facility] % Neutrophils 67 % 07/18/2024 11:49 PM CDT [facility] % Lymphocytes 24 % 07/18/2024 11:49 PM CDT [facility] % Monocytes 8 % 07/18/2024 11:49 PM CDT [facility] % Eosinophils 1 % 07/18/2024 11:49 PM CDT [facility] % Basophils 0 % 07/18/2024 11:49 PM CDT [facility] % Immature Granulocytes 0 % 07/18/2024 11:49 PM CDT UR [facility] NRBCs per 100 WBC 0 <1 /100 024 11:49 PM CDT [facility] Absolute Neutrophils 6.8 1.6 - 8.3 10e3/uL 07/18/2024 11:49 PM CDT [facility] Absolute Lymphocytes 2.4 0.8 - 5.3 10e3/uL 07/18/2024 11:49 PM CDT UR [facility] Absolute Monocytes 0.8 0.0 - 1.3 10e3/uL 07/18/2024 11:49 PM CDT [facility] Absolute Eosinophils 0.1 0.0 - 0.7 10e3/uL 07/18/2024 11:49 PM CDT [facility] Absolute Basophils 0.0 0.0 - 0.2 10e3/uL 07/18/2024 11:49 PM CDT [facility] Absolute Immature Granulocytes 0.0 <=0.4 10e3/uL 07/18/2024 11:49 PM CDT [facility] Absolute NRBCs 0.0 10e3/uL 07/18/2024 11:49 PM CDT UR [facility] Blood BLOOD SPECIMEN / Unknown Venipuncture / Unknown 07/18/2024 11:21 PM CDT 07/18/2024 11:28 PM CDT us Miguel Puente MD LAB - BLOOD ORDERABLES F inal Result UR LABORATORY [facility] [address] [facility] [place] [address], [facility] * Troponin T, High Sensitivity (07/18/2024 11:21 PM CDT) Troponin T, High Sensitivity <6 <=14 [...] 11:21 PM CDT 07/18/2024 11:28 PM CDT us Miguel Puente MD LAB - BLOOD ORDERABLES F inal Result UR LAB[facility]ATORY [facility] [address] [place] [address] * (ABNORMAL) Basic metabolic panel (07/18/2024 11:21 PM CDT) Sodium 136 135 - 145 mmol/L 07/18/2024 11:56 PM CDT UR [facility] Potassium 4.0 3.4 - 5.3 mmol/L 07/18/2024 11:56 PM CDT UR [facility] Chloride 102 98 - 107 mmol/L 07/18/2024 11:56 PM CDT [facility] Carbon Dioxide (CO2) 21(L) 22 - 29 mmol/L 07/18/2024 11:56 PM CDT [facility] Anion Gap 13 7 - 15 mmol/L 07/18/2024 11:56 PM CDT UR [facility] Urea Nitrogen 13.7 6.0 - 20.0 mg/dL 07/18/2024 11:56 PM CDT UR [facility] Creatinine 0.72 0.51 - 0.95 mg/dL 07/18/2024 11:56 PM CDT UR [facility] GFR Estimate >90 >60 mL/min/1.7 3m2 07/18/2024 11:56 PM CDT UR [facility] Comment:eGFR calculated usin 2020 CKD-EPI equation. Calcium 9.1 8.8 - 10.4 mg/dL 07/18/2024 11:56 PM CDT [facility] Comment:Reference intervals for this test were updated on 06/13/2024 to reflect our healthy population more accurately. There may be differences in the flagging of prior results with similar values performed with this method. Those prior results can be interpreted in the context of the updated reference intervals. Glucose 94 70 - 99 mg/dL 07/18/2024 11:56 PM CDT UR [facility] Blood BLOOD SPECIMEN / Unknown Venipuncture / Unknown 07/18/2024 11:21 PM CDT 07/18/2024 11:28 PM CDT Miguel Puente MD LAB - BLOOD ORDERABLES F inal Result UR LABORATORY [facility] [address] [place] [address], [address] * (ABNORMAL) Glucose by meter (07/18/2024 10:45 PM CDT) GLUCOSE BY METER POCT 112(H) 70 - 99 mg/dL 07/18/2024 10:52 PM CDT UR [facility] POC Blood, Capillary BLOOD SPECIMEN / Unknown 07/18/2024 10:45 PM CDT 07/18/2024 10:52 PM CDT Miguel Puente MD LAB - BEAKER POCT Final Result UR LAB[facility] POC [facility] [address] [place] [address], [address] documented in this encounter Visit Diagnoses Diagnosis Altered mental status, unspecified altered mental status type Bleeding from left ear documented in this encounter Administered Medications Inactive Administered Medications - up to 3 most recent administrations Medication Order MAR Action Action Date Dose Rate Site diphenhydrAMINE (BENADRYL) injection 25 mg 25 mg, Intravenous, ONCE, On Wed07/18/24 at 2250, For 1 dose $Given 07/18/2024 11:50 PM CDT 25 mg diphenhydrAMINE (BENADRYL) injection 25 mg 25 mg, Intravenous, ONCE, On Wed07/19/24 at 0025, For 1 dose $Given 07/19/2024 12:43 AM CDT 25 mg famotidine (PEPCID) injection 20 mg 20 mg, Intravenous, Administer over 2 Minutes, ONCE, On Wed07/19/24 at 0025, For 1 dose, For ordered IV doses 1-20 mg, give IV Push diluted with 5-10 mL NS over a minimum of 2 minutes. $Given 07/19/2024 12:46 AM CDT 20 mg gadobutrol (GADAVIST) injection 10 mL 10 mL, Intravenous, ONCE, On Wed07/19/24 at 0110, For 1 dose $Given 07/19/2024 2:43 AM CDT 10 mLs HYDROmorphone (DILAUDID) half-tab 1 mg 1 mg, Oral, ONCE, On Wed07/19/24 at 0115, For 1 dose $Given 07/19/2024 1:17 AM CDT 1 mg iopamidol (ISOVUE-370) solution 67 mL 67 mL, Intravenous, ONCE, On Wed07/18/24 at 2250, For 1 dose, To be administered by Imaging staff during CTA Head/Neck scan. $Given 07/19/2024 12:12 AM CDT 67 mLs LORazepam (ATIVAN) injection 1 mg 1 mg, Intravenous, ONCE PRN, anxiety, prior to mri, Starting on Wed07/19/24 at 0056, For 1 dose, IV Route: Dilute with equal volume NS prior to use. This drug may cause significant respiratory depression. Monitor respiratory status and vital signs carefully for 1 hour after each dose. $Given 07/19/2024 1:09 AM CDT 1 mg sodium chloride 0.9 % bag for CT scan flush use As instructed, 100 mL, ONCE, On Wed07/18/24 at 2250, For 1 dose, For use by Radiology to intermittently use as a flush for patients receiving a CT scan. $Given 07/19/2024 12:13 AM CDT 80 mLs documented in this encounter Active and Recently Administered Medications Times are shown in CDT. Scheduled Medication Order 07/17/2024 07/18/2024 07/19/2024 diphenhydrAMINE (BENADRYL) injection 25 mg (COMPLETED) 25 mg, Intravenous, ONCE, On Wed07/18/24 at 2250, For 1 dose 2350 ($Given - Provider: Opal Win RN) diphenhydrAMINE (BENADRYL) injection 25 mg (COMPLETED) 25 mg, Intravenous, ONCE, On Wed07/19/24 at 0025, For 1 dose 0043 ($Given - Provider: Brenda Chun RN) famotidine (PEPCID) injection 20 mg (COMPLETED) 20 mg, Intravenous, Administer over 2 Minutes, ONCE, On Wed07/19/24 at 0025, For 1 dose, For ordered IV doses 1-20 mg, give IV Push diluted with 5-10 mL NS over a minimum of 2 minutes. 0046 ($Given - Provider: Brenda Chun RN) gadobutrol (GADAVIST) injection 10 mL (COMPLETED) 10 mL, Intravenous, ONCE, On Wed07/19/24 at 0110, For 1 dose 0243 ($Given - Provider: Crystal Hidalgo) HYDROmorphone (DILAUDID) half-tab 1 mg (COMPLETED) 1 mg, Oral, ONCE, On Wed07/19/24 at 0115, For 1 dose 0117 ($Given - Provider: Brenda Chun RN) iopamidol (ISOVUE-370) solution 67 mL (COMPLETED)(Linked Group 1) 67 mL, Intravenous, ONCE, On Wed07/18/24 at 2250, For 1 dose, To be administered by Imaging staff during CTA Head/Neck scan. 0012 ($Given - Provider: Naga Wetzel) sodium chloride 0.9 % bag for CT scan flush use (COMPLETED)(Linked Group 1) As instructed, 100 mL, ONCE, On Wed07/18/24 at 2250, For 1 dose, For use by Radiology to intermittently use as a flush for patients receiving a CT scan. 0013 ($Given - Provider: Naga Wetzel) PRN Medication Order 07/17/2024 07/18/2024 07/19/2024 LORazepam (ATIVAN) injection 1 mg (COMPLETED) 1 mg, Intravenous, ONCE PRN, anxiety, prior to mri, Starting on Wed07/19/24 at 0056, For 1 dose, IV Route: Dilute with equal volume NS prior to use. This drug may cause significant respiratory depression. Monitor respiratory status and vital signs carefully for 1 hour after each dose. 0109 ($Given - Provi rosita: Brenda Chun RN) Linked Groups Order Group 1: iopamidol (ISOVUE-370) solution 67 mL (COMPLETED)Jump to med 67 mL, Intravenous, ONCE, On Wed07/18/24 at 2250, For 1 dose, To be administered by Imaging staff during CTA Head/Neck scan. And sodium chloride 0.9 % bag for CT scan flush use (COMPLETED)Jump to med As instructed, 100 mL, ONCE, On Wed07/18/24 at 2250, For 1 dose, For use by Radiology to intermittently use as a flush for patients receiving a CT scan. 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 Assessment Noted Time PHQ-9 Depression Total Score: 4 02/21/20 1:54 PM CDT documented as of this encounter Care Teams Delivery Crew Member Relationship Specialty Start [place] [address] [address] [address] PCP - General Family Medicine 04/22/23 [place] [address] [address] [address] Assigned Pain Medication Provider 12/07/22 [place] [address] [address] [address] Assigned PCP 01/23/23 [place] [address] [place] [address] Assigned Musculoskeletal Provider 01/23/23 09/19/24 Gregorio Dalton PA-C [address] [place] [address] Assigned Surgical Provider 05/22/23 07/20/24 Kingsley Garcia MD [address] [place] [address] Assigned Heart and Vascular Provider 08/07/23 [place] [address] [place] [address] Family Medicine 09/10/23 Master Shea PA-C [address] [place] [address] Physician Records Specialist Gastroenterology 09/10/23 Allyssa Justice MD [facility] [address] [place] [address] Hematology & Oncology 12/10/23 Genaro Christian MD [address] [place] [address] Cardiovascular Disease 12/22/23 Master Shea PA-C [address] [place] [address] Assigned Gastroenterology Provider 12/23/23 Sienna Guillermo DO [address] [place] [address] Physician Cardiovascular Disease 01/18/24 Allyssa Jutsice MD [facility] [address] [place] [address] Assigned Cancer Care Provider 03/21/24 documented as of this encounter
--- OUTSIDE RECORDS SUMMARY | 2024-09-21 22:41 | XMS_ITS | Encounter Summary ---
Author Organization [place] Address [address] [place] [address] Care Team Providers Care Rehabilitation Specialist Name Role Phone Segundo Mcclelland MD Unavailable [phone] Segundo Mcclelland MD Unavailable [phone] Qamar Jackson MD Unavailable Segundo Mcclelland MD Primary Care Provider + Kingsley Garcia MD Unavailable + [phone] Segundo Mcclelland MD Unavailable [phone] Mastre Shea PA-C Unavailable Allyssa Justice MD Unavailable [phone] Genaro Christian MD Unavailable [phone] Master Shea PA-C Unavailable Sienna Guillermo DO Unavailable [phone] Allyssa Justice MD Unavailable [phone] Declan Leavitt MD Unavailable Reason for Referral * Mental Health Outpatient (Routine: Next available opening) - Pending Review Specialty Diagnoses / Procedures Referred By Contzbigniew t Referred To Contact Behavioral Health Diagnoses Borderline personality disorder (H) [place] [address] [place] [address] Phone: tel: fax: [address] [place] [address] Phone: tel: fax: Referral ID Status Reason Start Date Expiration Date V isits Requested Visits Authorized [id number] Pending Review 08/03/2024 08/03/2025 1 1 Question Answer Services: Psychiatry/Med Management Reason for Referral - REVIEW REFERENCE LINK BELOW: Short-term consultation & return to PCP/Collaborative Care (CCPS) My Clinical Question Is: n/a Scheduling Instructions: [facility] will call you to coordinate your care as prescribed by your provider. If you don't hear from a sales representative publications within 2 business days, please call . Only select yes if the patient has already been scheduled and requires a referral for insurance. If yes is selected, the referral will NOT route to scheduling for outreach. No Comments Please be aware that coverage of these services is subject to the terms and limitations of your health insurance plan. Call member services at your health plan with any benefit or coverage questions. [facility] will call you to coordinate your care as prescribed by your provider. If you don't hear from a sales representative publications within 2 business days, please call . 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 [facility] for visit she had 05/27/2024 Does patient have an appointment scheduled?: No Where to send orders: Fax to [facility] restricted recipient department Could we send this information to you in [facility] or would you prefer to receive a phone call?: Patient would prefer a phone call Okay to leave a detailed message?: Yes at Other phone number: [phone] [facility] Npi [id number] Provider name: jyoti gannon NPI # [id number] Dos 05/27/2024 documented in this encounter Plan of Treatment Upcoming Encounters Date Type Department Care Team (Late st Contact Info) Description 02/20/2025 10:[address] [facility] Imaging [address] [place] [address] [place] [phone] Allyssa Justice MD [facility] [address] [place] [address] 02/27/2025 10:40 AM CDT Virtual Visit [facility] [address] [facility] [place] [address] Allyssa Justice MD [facility] [address] [address] [place] [address] Scheduled Referrals Name Type Priority Associated Diagnoses Orde r Schedule Adult Mental Health Clinical Laboratory Scientist Referral Referral Routine: Next available opening Borderline personality disorder (H) Expected: 08/03/2024 (Approximate), Expires: 08/03/2025 documented as of this encounter Visit Diagnoses Diagnosis Borderline personality disorder (H)- Primary Borderline personality disorder 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 Assessment Noted Time PHQ-9 Depression Total Score: 4 02/21/20 24 1:54 PM CDT documented as of this encounter Care Teams Rehabilitation Specialist Relationship Specialty Start [place] [address] [address] [address] PCP - General Family Medicine 04/22/23 [place] [address] [address] [address] Assigned Pain Medication Provider 12/07/22 [place] [address] [address] [address] Assigned PCP 01/23/23 [place] [address] [address] [place] [address] Assigned Musculoskeletal Provider 01/23/23 09/19/24 Kingsley Garcia MD [address] [place] [address] Assigned Heart and Vascular Provider 08/07/23 [place] [address] [address] [address] Family Medicine 09/10/23 Master Shea PA-C [address] [place] [address] Physician Associate Software Application Engineer Gastroenterology 09/10/23 Allyssa Justice MD [facility] [address] [place] [address] [place] [address] Hematology & Oncology 12/10/23 Genaro Christian MD [address] [place] [address] Cardiovascular Disease 12/22/23 Master Shea PA-C [address] [place] [address] Assigned Gastroenterology Provider 12/23/23 Sienna Guillermo DO [address] [place] [address] Physician Cardiovascular Disease 01/18/24 Allyssa Justice MD [facility] [address] [place] [address] Assigned Cancer Care Provider 03/21/24 Declan Leavitt MD [address] [place] [address] Assigned Surgical Provider 07/21/24 documented as of this encounter
--- OUTSIDE RECORDS SUMMARY | 2024-09-21 22:41 | XMS_ITS | Encounter Summary ---
Author Organization [facility] Address [address] [place] [address] Care Team Providers Care Assistant Pressman Name Role Phone Segundo Mcclelland MD Unavailable [phone] Segundo Mcclelland MD Unavailable [phone] Qamar Jackson MD Unavailable Segundo Mcclelland MD Primary Care Provider + Kingsley Garcia MD Unavailable + [phone] Segundo Mcclelland MD Unavailable [phone] Master Shea PA-C Unavailable Allyssa Justice MD Unavailable [phone] Genaro Christian MD Unavailable [phone] Master Shea PA-C Unavailable Sienna Guillermo DO Unavailable [phone] Allyssa Justice MD Unavailable [phone] Declan Leavitt MD Unavailable Reason for Visit * Reason Comments Dental Problem Fever Encounter Details Date Type Department Care Team (Late st Contact Info) Description 08/02/2024 10:16 PM CDT - 08/03/2024 3:53 AM CDT [facility] Emergency Dept [address] [facility] [place] [place] [phone] Santhosh Sánchez MD [facility] [address] [place] [address] Dental infection Discharge Disposition: Home or Self [...] AM CDT 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 Gender Identity Female 05/26/2021 10:37 AM CDT Sexual Orientation Straight 05/26/2021 10 :37 AM CDT Occupation Industry Job Start Date Job End Date unemployed Not on file Not on file Not on file Not on file Not on file Not on file Not on file documented as of this encounter Last Filed Vital Signs Vital Sign Reading Time Taken Comments Blood Pressure 103/76 08/03/2024 3:48 AM CDT Pulse 86 08/03/2024 3:48 AM CDT Temperature 37.2 ??C (99 ??F) 08/02/2024 10:31 PM CDT Respiratory Rate 18 08/03/2024 3:48 AM CDT Oxygen Saturation 95% 08/03/2024 3:48 AM CDT Inhaled Oxygen Concentration - - Weight - - Height - - Body Mass Index - - documented in this encounter Discharge Instructions * Attachments The following attachments cannot be sent through Care Everywhere. * Tooth: Abscessed (Beninese) documented in this encounter Medications at Time [...] anxiety naloxone (NARCAN) 4 MG/0.1ML nasal spray Phillips 4 mg into one nostril alternating nostrils once as needed for opioid reversal 06/28/2023 pantoprazole (PROTONIX) 40 MG EC tablet Take 40 mg by mouth daily sodium chloride 0.9% infusionIndication s:Gastroparesis Inject 1,000 mLs into the vein as needed for other (Wednesday with IV antibiotic) 42951 mL 06/02/2024 sucralfate (CARAFATE) 1 GM tabletIndications: Kathleen-Medrano tear Take 1 tablet (1 g) by mouth 4 times daily 120 tablet 1 06/09/2024 zolpidem (AMBIEN) 10 MG tablet Take 10 mg by mouth At Bedtime 12/17/2022 ferrous sulfate (SARA-IN-JESSICA) 75 (15 FE) MG/ML oral dropsIndications:A nemia due to blood loss, acute Take 5 mLs (75 mg) by mouth daily 50 mL 1 06/09/2024 documented as of this encounter ED Notes * Santhosh Sánchez MD - 08/03/2024 12:59 AM CDT Emergency Department Note History of Present Illness Chief Complaint Dental Problem and Fever HPI Sandi Lopez is a 38 year old female with history of DVT, PE, atrial flutter, and hypertension who presents with dental problem and fever. The patient reports that a week and a half ago she noticed that her two upper left teeth were in significant pain and had become infected/eroded while onvacation to [place]. She explains that she was prescribed amoxicillin which initially improved her symptoms, but she woke up this morning with significant swelling and pain to the region as well as the right side of the face. She also endorses chills, fever, diarrhea, dehydration, and shakes. The patient explains that she called the nurse triage line who told her to present to the ED for se psis evaluation. She notes that her wisdom teeth are removed. Independent Historian None Review of External Notes Dominga Regalado RN Telephone Encounter Date: 08/02/2024 Seen in ER a week ago in [place] on vacation. DX with dental infection infection. At first I was given IV antibiotic in ER and then sent home with RX: antibiotic:Augmentin 875/125mg twice a day, and I have been on it for 6 days. Still has 1 more day left of RX. T101 chills, and diarrhea. DDS told her to call her PCP. I had a tooth infection in a tooth that had broken in half and developed an abscess into the jaw. Since yesterday, diarrhea, fever, chills, nausea. More drainage coming out of the tooth: bloody yellow green. I keep rinsing with saline warm water.. Horrible throbbing pain. Pain currently =7-8. I am taking Tylenol for the pain. It does not help at all. I am worried about the infection. She says that the DDS told her she may need an IV antibiotic. Triaged to a disposition of Call PCP now. Provider consult indicated. Reason for page: worsening sx despite antibiotics x 6 days for dental infection-abscess. PCP: [facility]: Dr Segundo Mcclelland (). Page sent to Dr Linda Lopez by answering service at 8:41pm: (contacted per cell phone) 8:45pm Per Dr Lopez: Patient should be seen in ER now due to risk of sepsis, and possible need for IV antibiotic. 8:48pm Patient contacted with this instruction. She verbalized understanding/agreed with this plan.She states she will have someone drive her to the ER now I also reviewed the patient's extensive care plan Past Medical History Medical History [...] Talar fracture foot surgery Tonsillectomy and adenoidectomy Transesophage Physical Exam Patient Vitals for the past 24 hrs: BP Temp Temp src Pulse Resp SpO2 08/02/24 2231 -- 99 ??F (37.2 ??C) Oral -- -- -- 08/02/24 2230 (!) 142/77 -- -- 119 20 99 % Physical Exam General: Alert, No distress. Nontoxic appearance Head: No signs of trauma. Mouth/Throat: Oropharynx moist. Tooth number 2 and 3 are eroded to the gumline. Drainage from the area surrounding these two teeth Eyes: Conjunctivae are normal. Pupils are equal.. Neck: Normal range of motion. CV: Appears well perfused. Resp:No respiratory distress. MSK: Normal range of motion. No obvious deformity. Neuro: The patient is alert and interactive. CAMARGO. Speech normal. GCS 15 Skin: No lesion or sign of trauma noted. Psych: normal mood and affect. behavior is normal. Diagnostics Lab Results Labs Ordered and Resulted from Time of ED Arrival to Time of ED Departure BASIC METABOLIC PANEL - Abnormal Result Value Sodium 136 Potassium 4.3 Chloride 103 Carbon Dioxide (CO2) 21 (*) Anion Gap 12 Urea Nitrogen 13.6 Creatinine 0.73 GFR Estimate >90 Calcium 8.4 (*) Glucose 91 CRP INFLAMMATION - Abnormal CRP Inflammation 38.10 (*) CBC WITH PLATELETS AND DIFFERENTIAL - Abnormal WBC Count 6.6 RBC Count 3.97 Hemoglobin 8.8 (*) Hematocrit 29.6 (*) MCV 75 (*) MCH 22.2 (*) MCHC 29.7 (*) RDW 19.8 (*) Platelet Count 314 % Neutrophils 52 % Lymphocytes 33 % Monocytes 13 % Eosinophils 2 % Basophils 0 % Immature Granulocytes 0 NRBCs per 100 WBC 0 Absolute Neutrophils 3.5 Absolute Lymphocytes 2.2 Absolute Monocytes 0.8 Absolute Eosinophils 0.1 Absolute Basophils 0.0 Absolute Immature Granulocytes 0.0 Absolute NRBCs 0.0 RBC AND PLATELET MORPHOLOGY - Abnormal RBC Morphology Confirmed RBC Indices Platelet Assessment Value: Automated Count Confirmed. Platelet morphology is normal. Elliptocytes Slight (*) LACTIC ACID WHOLE BLOOD - Normal Lactic Acid 0.9 Imaging No orders to display Independent Interpretation None ED Course Medications Administered Medications - No data to display Discussion of Management None ED Course ED Course as of 08/03/24 0342 Marleny Aug 03, 2024 0113 I obtained history and examined the patient as noted above Additional Documentation None Medical Decision Making / Diagnosis CMS Diagnoses: None MIPS None MDM Sandi Lopez is a 38 year old female Sandi Lopez is a 38 year old female who presents for evaluation of tooth pain. This appears to be secondary to a tooth decay of tooth #2 and #3. There is no abscess detected around the teeth amenable to incision and drainage. No signs of systemic illness such as sepsis. The differential diagnosis includes: pulpitis, sub-apical abscess, facial cellulitis, alveolitis amongst others. There is no evidence of deep space infections, significant facial swelling, Lemierre'sSyndrome or Ricky's angina. There are no posterior pharyngeal space (RPA, REWINDER) infections detected. Follow up with a dentist/distribution engineering technologist in the coming days is indicated for further work up and treatment. Disposition The patient was discharged. Diagnosis ICD-10-CM 1. Dental infection K04.7 Scribe Disclosure: Rico Sanchez, am serving as a scribe at 1:18 AM on 08/03/2024 to document services personally performed by Santhosh Sánchez MD based on my observations and the provider's statements to me. Santhosh Sánchez MD 08/03/24 1740 * Brooke Sumner RN - 08/02/2024 10:31 PM CDT Patient states she has a dental infection and has been on amoxicillin that she was prescribed whileon vacation. Called nurse line tonight and there was told to come in to be checked for sepsis. She states she has bloody purulent drainage coming from the right upper jaw. Triage Assessment (Adult) Row Name 08/02/24 2231 Triage Assessment Airway WDL WDL Respiratory WDL Respiratory WDL WDL Skin Circulation/Temperature WDL Skin Circulation/Temperature WDL WDL Cardiac WDL Cardiac WDL WDL Peripheral/Neurovascular WDL Peripheral Neurovascular WDL WDL documented in this encounter Plan of Treatment Upcoming Encounters Date Type Department Care Team (Late st Contact Info) Description 02/20/2025 10:20 AM CDT Appointment [facility] [address] [facility] [address] [place] [address] Allyssa Justice MD [facility] [address] [place] [address] 02/27/2025 10:40 AM CDT Virtual Visit [facility] [address], [place] [facility] [place] [phone] Allyssa Justice MD [facility] [address] [place] [place] [address] documented as of this encounter Procedures Procedure Name Priority Date/Time Associated Diagnosis Comments RBC AND PLATELET MORPHOLOGY STAT 08/03/2024 3:05 AM CDT CBC WITH PLATELETS AND DIFFERENTIAL STAT 08/03/2024 3:05 AM CDT CBC WITH PLATELETS & DIFFERENTIAL STAT 08/03/2024 3:05 AM CDT LACTIC ACID WHOLE BLOOD STAT 08/03/2024 3:05 AM CDT CRP INFLAMMATION STAT 08/03/2024 1:48 AM CDT BASIC METABOLIC PANEL STAT 08/03/2024 1:48 AM CDT documented in this encounter Results * (ABNORMAL) RBC and Platelet Morphology (08/03/2024 3:05 AM CDT) RBC Morphology Confirmed RBC Indices 08/03/2024 3:37 [...] LAB - BLOOD ORDERABLES Final Result LABORATORY [facility] [address] 1st floor, [address] [place] [address], [facility] [phone] * (ABNORMAL) CBC with platelets and differential (08/03/2024 3:05 AM CDT) [facility] WBC Count 6.6 4.0 - 11.0 10e3/uL [...] BLOOD ORDERABLES Final Result Performing Organization Address City/State/[facility] Co de Phone Number LABORATORY [facility] [address] 1[address] floor, [address] [place] [address], [facility] [phone] * Lactic acid whole blood (08/03/2024 3:05 AM CDT) Lactic Acid 0.9 0.7 - 2.0 mmol/L 08/03/2024 3:08 AM CDT LABORATORY Blood STRUCTURE OF RIGHT HAND / Unknown Venipuncture / Unknown 08/03/2024 3:05 AM CDT 08/03/2024 3:07 AM CDT Santhosh Sánchez MD LAB - BLOOD ORDERABLES Final Result LABORATORY [facility] [address] 1st floor, [place], [place] [address], [facility] [phone] * (ABNORMAL) CRP inflammation (08/03/2024 1:48 AM CDT) [facility] CRP Inflammation 38.10(H) <5.00 mg/L 08/03/2024 2:11 AM CDT LABORATORY Blood BLOOD SPECIMEN / Unknown Venipuncture / Unknown 08/03/2024 1:48 AM CDT 08/03/2024 1:52 AM CDT Santhosh Sánchez MD LAB - BLOOD ORDERABLES Final Result Performing Organization Address City/[facility]/ZIP Co de Phone Number LABORATORY [facility] [address] 1st floor, [address], [place] [address], [facility] [phone] * (ABNORMAL) Basic metabolic panel (08/03/2024 1:48 AM CDT) [facility] Sodium 136 135 - 145 mmol/L 08/03/2024 2:11 AM CDT LABORATORY Potassium 4.3 3.4 - 5.3 mmol/L 08/03/2024 2:11 AM CDT LABORATORY Chloride 103 98 - 107 mmol/L 08/03/2024 2:11 AM CDT LABORATORY Carbon Dioxide (CO2) 21(L) 22 - 29 mmol/L 08/03/2024 2:11 AM CDT LABORATORY Anion Gap 12 7 - 15 mmol/L 08/03/2024 2:11 AM CDT LABORATORY Urea Nitrogen 13.6 6.0 - 20.0 mg/dL 08/03/2024 2:11 AM CDT LABORATORY Creatinine 0.73 0.51 - 0.95 mg/dL 08/03/2024 2:11 AM CDT LABORATORY GFR Estimate >90 >60 mL/min/1.7 3m2 08/03/2024 2:11 AM CDT LABORATORY Comment:eGFR calculated usin g 2020 CKD-EPI equation. Calcium 8.4(L) 8.8 - 10.4 mg/dL 08/03/2024 2:11 AM CDT LABORATORY Comment:Reference intervals for this test were updated on 06/13/2024 to reflect our healthy population more accurately. There may be differences in the flagging of prior results with similar values performed with this method. Those prior results can be interpreted in the context of the updated reference intervals. Glucose 91 70 - 99 mg/dL 08/03/2024 2:11 AM CDT LABORATORY Blood BLOOD SPECIMEN / Unknown Venipuncture / Unknown 08/03/2024 1:48 AM CDT 08/03/2024 1:52 AM CDT Santhosh Sánchez MD LAB - BLOOD ORDERABLES Final Result LABORATORY [facility] [address] floor, [address] [place] [address], [facility] [phone] documented in this encounter Visit Diagnoses Diagnosis Dental infection Acute apical periodontitis of pulpal origin 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 Assessment Noted Time PHQ-9 Depression Total Score: 4 02/21/20 24 1:54 PM CDT documented as of this encounter Care Teams Assistant Pressman Relationship Specialty Start [place] [address] [address] [address] PCP - General Family Medicine 04/22/23 [place] [address] [address] [address] Assigned Pain Medication Provider 12/07/22 [place] [address] [address] [address] Assigned PCP 01/23/23 [place] [address] [place] [address] Assigned Musculoskeletal Provider 01/23/23 09/19/24 Kingsley Garcia MD [address] [place] [address] Assigned Heart and Vascular Provider 08/07/23 [place] [address] [address] [address] Family Medicine 09/10/23 Master Shea PA-C [address] [place] [place] [address] Physician Technical Spec Gastroenterology 09/10/23 Allyssa Justice MD [facility] [address] [place] [place] [id number] Hematology & Oncology 12/10/23 Genaro Christian MD [address] [place], [place] [phone] Cardiovascular Disease 12/22/23 Master Shea PA-C [address] [place] [address] Assigned Gastroenterology Provider 12/23/23 Sienna Guillermo DO [address] [place] [address] Physician Cardiovascular Disease 01/18/24 Allyssa Justice MD [facility] [address] [place] [address] Assigned Cancer Care Provider 03/21/24 Declan Leavitt MD [address] [place] [address] Assigned Surgical Provider 07/21/24 documented as of this encounter
--- OUTSIDE RECORDS SUMMARY | 2024-09-21 22:41 | XMS_ITS | Encounter Summary ---
Author Organization [facility] Address [address] [place] [address] Care Team Providers Care Import/Export Clerk Name Role Phone Segundo Mcclelland MD Unavailable [phone] Segundo Mcclelland MD Unavailable [phone] Qamar Jackson MD Unavailable Segundo Mcclelland MD Primary Care Provider + Gregorio Dalton PA-C Unavailable [phone] Kingsley Garcia MD Unavailable [phone] Segundo Mcclelland MD Unavailable [phone] Master Shea PA-C Unavailable Allyssa Justice MD Unavailable [phone] Genaro Christian MD Unavailable [phone] Master Shea PA-C Unavailable Sienna Guillermo DO Unavailable [phone] Allyssa Justice MD Unavailable [phone] Encounter Details Date Type Department Care Team (Latest Contact Info) Description 07/18/2024 Travel Social History Tobacco Use Types Packs/Day [...] AM CDT 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 Gender Identity Female 05/26/2021 10:37 AM CDT [...] Info) Description 02/20/2025 10:20 AM CDT Appointment [facility] [address] [facility] [address] [place] [address] Allyssa Justice MD [facility] [address] [place] [address] [place] [address] 02/27/2025 10:40 AM CDT Virtual Visit [facility] [address] [place] [address] [facility] [place] [phone] Allyssa Justice MD [facility] [address] [place] [place] [address] documented as of this encounter Visit Diagnoses Not on file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 Assessment Noted Time PHQ-9 Depression Total Score: 4 02/21/20 24 1:54 PM CDT documented as of this encounter Care Teams Import/Export Clerk Relationship Specialty Start [place] [address] [address] [address] PCP - General Family Medicine 04/22/23 [place] [address] [address] [address] Assigned Pain Medication Provider 12/07/22 [place] [address] [address] [address] Assigned PCP 01/23/23 [place] [address] [place] [place] [address] Assigned Musculoskeletal Provider 01/23/23 09/19/24 Gregorio Dalton PA-C [address] [address] Assigned Surgical Provider 05/22/23 07/20/24 Kingsley Garcia MD [address] [place] [address] Assigned Heart and Vascular Provider 08/07/23 [place] [address] [place] [address] Family Medicine 09/10/23 Master Shea PA-C [address] [place] [address] Physician Research Staff Member Gastroenterology 09/10/23 Allyssa Justice MD [facility] [address] [place] [address] [place] [address] Hematology & Oncology 12/10/23 Genaro Christian MD [address] [place] [address] Cardiovascular Disease 12/22/23 Master Shea PA-C [address] [place] [address] Assigned Gastroenterology Provider 12/23/23 Sienna Guillermo DO [address] [place] [address] Physician Cardiovascular Disease 01/18/24 Allyssa Justice MD [facility] [address] [place] [address] [place] [address] Assigned Cancer Care Provider 03/21/24 documented as of this encounter
--- OUTSIDE RECORDS SUMMARY | 2024-09-21 22:41 | XMS_ITS | Encounter Summary ---
Author Organization [place] Address [facility] [place] [address] Care Team Providers Care Epic Prelude Analyst Name Role Phone Segundo Mcclelladn MD Unavailable [phone] Segundo Mcclelland MD Unavailable [phone] Qamar Jackson MD Unavailable Segundo Mcclelland MD Primary Care Provider + Gregorio Dalton PA-C Unavailable [phone] Kingsley Garcia MD Unavailable + [phone] Segundo Mcclelland MD Unavailable [phone] Master Shea PA-C Unavailable Allyssa Justice MD Unavailable [phone] Genaro Christian MD Unavailable + [phone] Master Shea PA-C Unavailable Sienna Guillemro DO Unavailable [phone] Allyssa Justice MD Unavailable [phone] Reason for Visit * Reason Comments Back Pain Fell yesterday from stairs, there was lower back pain today the pain has radiated to the upper back.The numbness on the L leg and L hand has gotten worse. 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 Gender Identity Female 05/26/2021 10:37 AM CDT Sexual Orientation Straight 05/26/2021 10 :37 AM CDT Occupation Industry Job Start Date Job End Date unemployed Not on file Not on file Not on file Not on file Not on file Not on file Not on file documented as of this encounter Last Filed Vital Signs Vital Sign Reading Time Taken Comments Blood Pressure 136/86 07/09/2024 3:30 AM CDT Pulse 108 07/09/2024 3:30 AM CDT Temperature 36.8 ??C (98.2 ??F) 07/08/2024 1 0:33 PM CDT Respiratory Rate 18 07/08/2024 10:3 3 PM CDT Oxygen Saturation 99% 07/09/2024 3:30 AM CDT Inhaled Oxygen Concentration - - Weight 107.2 kg (236 lb 6.4 oz) 07/09/2024 3:00 AM CDT Height 167.6 cm (5' 6) 07/08/2024 8:47 PM CDT Body Mass Index 38.16 07/08/2024 8:47 PM CDT documented in this encounter Discharge Instructions * Discharge Instructions* Pennie Bernal MD - 07/09/2024 4:57 AM CDT Follow up with your clinic doctor this week. Return with any worsening or concerns. documented [...] anxiety naloxone (NARCAN) 4 MG/0.1ML nasal spray Jacumb[place] 4 mg into one nostril alternating nostrils once as needed for opioid reversal 06/28/2023 pantoprazole (PROTONIX) 40 MG EC tablet Take 40 mg by mouth daily sodium chloride 0.9% infusionIndication s:Gastroparesis Inject 1,000 mLs into the vein as needed for other (Wednesday with IV antibiotic) 36941 mL 06/02/2024 sucralfate (CARAFATE) 1 GM tabletIndications: [...] as of this encounter ED Notes * Jolie Amado - 07/09/2024 2:12 AM CDT Transport to and from ct. While in ct, pt reported swelling of hand and itchiness of entire body. Nurse and doc notified immediately * Lisa Fletcher RN - 07/08/2024 10:40 PM CDT Pt reporting severe pain, pt BP is 148/112. Placed pt on cardiac monitoring. MD notified * Lisa Fletcher RN - 07/08/2024 10:30 PM CDT Triage Assessment (Adult) Row Name 07/08/242048 Triage Assessment Airway WDL WDL Respiratory WDL Respiratory WDL WDL Skin Circulation/Temperature WDL Skin Circulation/Temperature WDL X Cardiac WDL Cardiac WDL WDL Peripheral/Neurovascular WDL Peripheral Neurovascular WDL X Cognitive/Neuro/Behavioral WDL Cognitive/Neuro/Behavioral WDL WDL * Mary Kay Vaughn RN - 07/08/2024 8:50 PM CDT Fell yesterday from stairs, there was lower back pain today the pain has radiated to the upper back. The numbness on the L leg and L hand has gotten worse. Triage Assessment (Adult) Row Name 07/08/242048 Triage Assessment Airway WDL WDL Respiratory WDL Respiratory WDL WDL Skin Circulation/Temperature WDL Skin Circulation/Temperature WDL X Cardiac WDL Cardiac WDL WDL Peripheral/Neurovascular WDL Peripheral Neurovascular WDL X Cognitive/Neuro/Behavioral WDL Cognitive/Neuro/Behavioral WDL WDL * Pennie Bernal MD - 07/08/2024 8:34 PM CDT Images from the original note were not included. ED Provider Note [facility] History Chief Complaint Patient presents with Back Pain Fell yesterday from stairs, there was lower back pain today the pain has radiated to the upper back.The numbness on the L leg and L hand has gotten worse. SATISH Lopez is a 38 year old female with a history of DVT and PE on Eliquis, atrial flutter, POTS, lumbar discectomy, and HTN who presents to the ED with complaint pain that is now in her mid/upper back as well as some new left hand numbness. She was seen yesterday following a syncopal episode and fall with left leg numbness. She had CT and MRI which was not revealing. She states she slept in a recliner, and now today her left hand feels numb with occasional zaps of pain as well as painup into her thoracic back. No specific C-spine pain. No cough or shortness of breath. No new trauma. No other acute complaints. This part of the medical record was transcribed by Lisandro Montgomery, Surgical Nurse Practitioner, from a dictation done by Pennie Bernal MD. Past Medical History Past Medical History: Diagnosis Date Abnormal Pap smear [place]/2 LEEPs age 16 Allergic rhinitis Anemia 2011 [...] Procedure: ESOPHAGOGASTRODUODENOSCOPY; Surgeon: Meg Lee MD; Location: [facility]; Service: ESOPHAGOSCOPY, GASTROSCOPY, DUODENOSCOPY (EGD), [...] CONTROLLED EPITAXIS; Surgeon: Declan Mata MD; Location: [facility]; Service: OOPHORECTOMY Right REMOVE PORT VASCULAR ACCESS [...] all other systems negative. Physical Exam BP: 109/80 Pulse: (!) 127 Temp: 98.5 ??F (36.9 ??C) Resp: 16 Height: 167.6 cm (5' 6) Weight: 98.9 kg (218 lb) SpO2: 98 % Physical Exam Constitutional: General: She is not in acute distress. Appearance: Normal appearance. She is not toxic-appearing. HENT: Head: Atraumatic. Mouth/Throat: Mouth: Mucous membranes are moist. Eyes: General: No scleral icterus. Conjunctiva/sclera: Conjunctivae normal. Cardiovascular: Rate and Rhythm: Tachycardia present. Heart sounds: Normal heart sounds. Pulmonary: Effort: No respiratory distress. Breath sounds: Normal breath sounds. Abdominal: Palpations: Abdomen is soft. Tenderness: There is no abdominal tenderness. Musculoskeletal: General: Tenderness present. No deformity. Cervical back: Neck supple. Back: Skin: General: Skin is warm. Findings: No rash. Neurological: Mental Status: She is alert. Sensory: Sensory deficit (reports decreased sensation with light touch to left leg. Decreased lighttouch to left hand.) present. Motor: No weakness. ED Course, Procedures, & Data Procedures Results for orders placed or performed during the hospital encounter of 07/08/24 CT Cervical Spine w/o Contrast Status: None Narrative EXAM: CT CERVICAL SPINE W/O CONTRAST, CT THORACIC SPINE W/O CONTRAST LOCATION: [facility] DATE: 07/09/2024 INDICATION: left hand numbness, [...] neural foraminal stenosis. PARASPINAL: No extraspinal abnormality. Impression IMPRESSION: CERVICAL SPINE CT: 1. No fracture or posttraumatic subluxation. 2. No high-grade spinal canal or neural foraminal stenosis. 3. Straightening of the usual cervical lordosis. THORACIC SPINE CT: 1. No fracture or posttraumatic subluxation. 2. No high-grade spinal canal or neural foraminal stenosis. CT Thoracic Spine w/o Contrast Status: None Narrative EXAM: CT CERVICAL SPINE W/O CONTRAST, CT THORACIC SPINE W/O CONTRAST LOCATION: [facility] DATE: 07/09/2024 INDICATION: left hand numbness, [...] neural foraminal stenosis. PARASPINAL: No extraspinal abnormality. Impression IMPRESSION: CERVICAL SPINE CT: 1. No fracture or posttraumatic subluxation. 2. No high-grade spinal canal or neural foraminal stenosis. 3. Straightening of the usual cervical lordosis. THORACIC SPINE CT: 1. No fracture or posttraumatic subluxation. 2. No high-grade spinal canal or neural foraminal stenosis. Thoracic spine MRI w/o contrast Status: None Narrative EXAM: MR THORACIC SPINE W/O CONTRAST LOCATION: [facility] DATE: 07/09/2024 INDICATION: thoracic back pain, left sided numbness COMPARISON: Thoracic spine CT on the same date TECHNIQUE: Routine Thoracic Spine MRI without IV contrast. FINDINGS: Normal vertebral body heights, alignment and marrow signal. Normal disc heights. No herniation. Normal facets. No spinal canal or neural foraminal stenosis. No abnormal cord signal. No extraspinal abnormality. Impression IMPRESSION: 1. Unremarkable MRI thoracic spine. Cervical spine MRI w/o contrast Status: None Narrative EXAM: MR CERVICAL SPINE W/O CONTRAST LOCATION: [facility] DATE: 07/09/2024 INDICATION: left hand numbness, [...] or neural foraminal stenosis. Impression IMPRESSION: 1. Straightening of the usual cervical lordosis. 2. Otherwise unremarkable. Drury Draw Status: None Narrative The following orders were created for panel order Drury Draw. Procedure Abnormality Status --------- ------ Extra Green Top (Purty Rock...[[id number]] Final result Extra Purple Top Tube[[id number]] Final result Please view results for these tests on the individual orders. Extra Green Top (Purty [place] Heparin) Tube Status: None Result Value Ref Range Hold Specimen JIC Extra Purple Top Tube Status: None Result Value Ref Range Hold Specimen JIC Medications HYDROmorphone (DILAUDID) tablet 2 mg (2 mg Oral $Given 07/09/24 0058) diphenhydrAMINE (BENADRYL) capsule 50 mg (50 mg Oral $Given 07/09/24214) famotidine (PEPCID) injection 20 mg (20 mg Intravenous $Given 07/09/24214) LORazepam (ATIVAN) tablet 1 mg (1 mg Oral $Given 07/09/24332) HYDROmorphone (DILAUDID) tablet 2 mg (2 mg Oral $Given 07/09/24332) Labs Ordered and Resulted from Time of ED Arrival to Time of ED Departure - No data to display Thoracic spine MRI w/o contrast Final Result IMPRESSION: 1. Unremarkable MRI thoracic spine. Cervical spine MRI w/o contrast Final Result IMPRESSION: 1. Straightening of the usual cervical lordosis. 2. Otherwise unremarkable. CT Thoracic Spine w/o Contrast Final Result IMPRESSION: CERVICAL SPINE CT: 1. No fracture or posttraumatic subluxation. 2. No high-grade spinal canal or neural foraminal stenosis. 3. Straightening of the usual cervical lordosis. THORACIC SPINE CT: 1. No fracture or posttraumatic subluxation. 2. No high-grade spinal canal or neural foraminal stenosis. CT Cervical Spine w/o Contrast Final Result IMPRESSION: CERVICAL SPINE CT: 1. No fracture or posttraumatic subluxation. 2. No high-grade spinal canal or neural foraminal stenosis. 3. Straightening of the usual cervical lordosis. THORACIC SPINE CT: 1. No fracture or posttraumatic subluxation. 2. No high-grade spinal canal or neural foraminal stenosis. Critical care was not performed. Medical Decision Making The patient's presentation was of moderate complexity (an acute complicated injury). The patient's evaluation involved: review of external note(s) from 3+ sources (previous notes) review of 3+ test result(s) ordered prior to this encounter (previous imaging) ordering and/or review of 3+ test(s) in this encounter (see separate area of note for details) The patient's management necessitated moderate risk (prescription drug management including medications given in the ED). Assessment & Plan The patient had both CTs and MRI of her lumbar spine yesterday which were not revealing. She now complains of pain in her thoracic spine as well as new left hand numbness. She does have light touch sensation of the hand, but states feels less than the other side. I did CT her neck and thoracic spine and did ultimately perform MRIs, which were also unremarkable. She was given 2 doses of p.o. Dilaudid here as well as a dose of p.o. lorazepam for anxiety related to MRI. Of note, between CT and MRIshe did report that she is having allergic reaction, perhaps related to the chlorhexidine they usedto place the IV. No objective swelling was noted by myself on exam. Oropharynx appeared clear, no ra sh, no wheeze. She did ask for IV Benadryl, stating that she did not feel she could swallow. Per chart review the patient does have a long history of factitious, and manipulative and drug-seeking behavior. I did order oral Benadryl as well as IV famotidine. She then told the civil cad tech that she could not swallow, but because of the Ozempic she takes she did not think the Benadryl would absorb. She ultimately did take the oral Benadryl, seemed to feel improved. No sign of anaphylaxis. It is unclearwhy she is having this tingling in her hand. She notes sleeping in a recliner, and she wonders herself whether she may have slept strange and cause this. I do not think she needs further acute evaluation tonight. She actually tells me that while in MRI she feels that she moved in a certain way and her back, cracked, and now the sensation in her leg is improving. She will be discharged home. Sheis encouraged to follow-up with her outpatient provider. If she continues to have issues with ongoing numbness, she may need neurology follow-up. She may return for worsening or concerns. She verbalizes understanding and is agreeable to the plan. Dictation Disclaimer: Some of this Note has been completed with voice- recognition dictation software. Although errors are generally corrected real- time, there is the potential for a rare error to be present in the completed chart. I have reviewed the nursing notes. I have reviewed the findings, diagnosis, plan and need for follow up with the patient. New Prescriptions No medications on file Final diagnoses: Acute midline thoracic back pain Lumbar back pain Numbness of left hand Pennie Bernal MD [facility] 07/08/2024 Pennie Bernal MD 07/09/24 0502 documented in this encounter Plan of Treatment Upcoming Encounters Date Type Department Care Team (Late st Contact Info) Description 02/20/2025 10:20 AM CDT Appointment [facility] [address] [place] [address] [place] [address] Allyssa Justice MD [facility] [address] [place] [address] 02/27/2025 10:40 AM CDT Virtual Visit [facility] [address], [place] [address] [facility] [place] [phone] Allyssa Justice MD [facility] [address] [place] [id number] documented as of this encounter Procedures Procedure Name Priority Date/Time Associated Diagnosis Comments MR THORACIC SPINE W/O CONTRAST STAT 07/09/2024 4:33 AM CDT MR CERVICAL SPINE W/O CONTRAST STAT 07/09/2024 4:[address] THORACIC SPINE W/O CONTRAST STAT 07/09/2024 2:[address] CERVICAL SPINE W/O CONTRAST STAT 07/09/2024 2:22 AM CDT EXTRA TUBE STAT 07/09/2024 1:22 AM CDT EXTRA PURPLE TOP TUBE STAT 07/09/2024 1:22 AM CDT EXTRA GREEN TOP (LITHIUM HEPARIN) TUBE STAT 07/09/2024 1:22 AM CDT HEPATIC FUNCTION PANEL Add-On 07/09/2024 1:22 AM CDT documented in this encounter Results * Thoracic spine MRI w/o contrast (07/09/2024 4:33 AM CDT) Anatomical Region Laterality Modality Spine, SUBRAD MR NEURO, UMP MR SPINE, RAD MR Magnetic Resonance 07/09/2024 4:33 AM CDT Impressions 07/09/2024 4:47 AM CDT IMPRESSION: 1. ??Unremarkable MRI thoracic spine. Narrative 07/09/2024 4:47 AM CDT EXAM: MR THORACIC SPINE W/O CONTRAST LOCATION: [facility] DATE: 07/09/2024 INDICATION: thoracic back pain, [...] EXAM: MR THORACIC SPINE W/O CONTRAST LOCATION: [facility] DATE: 07/09/2024 INDICATION: thoracic back pain, [...] EXAM: MR CERVICAL SPINE W/O CONTRAST LOCATION: [facility] DATE: 07/09/2024 INDICATION: left hand numbness, [...] EXAM: MR CERVICAL SPINE W/O CONTRAST LOCATION: [facility] DATE: 07/09/2024 INDICATION: left hand numbness, [...] lordosis. 2. Otherwise unremarkable. Pennie Bernal MD IMG MRI ORDERABLES Final [...] CONTRAST, CT THORACIC SPINE W/O CONTRAST LOCATION: [facility] DATE: 07/09/2024 INDICATION: left hand numbness, [...] CONTRAST, CT THORACIC SPINE W/O CONTRAST LOCATION: [facility] DATE: 07/09/2024 INDICATION: left hand numbness, [...] CONTRAST, CT THORACIC SPINE W/O CONTRAST LOCATION: [facility] DATE: 07/09/2024 INDICATION: left hand numbness, [...] CONTRAST, CT THORACIC SPINE W/O CONTRAST LOCATION: [facility] DATE: 07/09/2024 INDICATION: left hand numbness, [...] (ABNORMAL) Hepatic panel (07/09/2024 1:22 AM CDT) Protein Total 7.0 6.4 - 8.3 g/dL [...] BLOOD ORDERABLES Fi nal Result UR LABORATORY [facility] [address] [place] [address], [address] * Extra Purple Top Tube (07/09/2024 1:22 AM CDT) Hold Specimen [facility] 07/09/2024 2:31 AM CDT UR LABORATORY Blood BLOOD SPECIMEN / Unknown Venipuncture / Unknown 07/09/2024 1:22 AM CDT 07/09/2024 1:27 AM CDT us Pennie Bernal MD LAB - BLOOD ORDERABLES Fi nal Result UR LABORATORY [facility] [address] [place] [address], [address] * Extra Green Top (Purty Rock Heparin) Tube (07/09/2024 1:22 AM CDT) Hold Specimen [facility] 07/09/2024 2:31 AM CDT UR LABORATORY Blood BLOOD SPECIMEN / Unknown Venipuncture / Unknown 07/09/2024 1:22 AM CDT 07/09/2024 1:27 AM CDT us Pennie Bernal MD LAB - BLOOD ORDERABLES Fi nal Result UR LABORATORY [facility] [address] [place] [address], [address] documented in this encounter Visit Diagnoses Diagnosis Acute midline thoracic back pain Lumbar back pain Lumbago Numbness of left hand documented in this encounter Administered Medications Inactive Administered Medications - up to 3 most recent administrations Medication Order MAR Action Action Date Dose Rate Site diphenhydrAMINE (BENADRYL) capsule 50 mg 50 mg, Oral, ONCE, On 07/09/24 at 0210, For 1 dose $Given 07/09/2024 2:15 AM CDT 50 mg famotidine (PEPCID) injection 20 mg 20 mg, Intravenous, Administer over 2 Minutes, ONCE, On 07/09/24 at 0210, For 1 dose, For ordered IV doses 1-20 mg, give IV Push diluted with 5-10 mL NS over a minimum of 2 minutes. $Given 07/09/2024 2:15 AM CDT 20 mg HYDROmorphone (DILAUDID) tablet 2 mg 2 mg, Oral, ONCE, On 07/09/24 at 0040, For 1 dose $Given 07/09/2024 12:58 AM CDT 2 mg HYDROmorphone (DILAUDID) tablet 2 mg 2 mg, Oral, ONCE, On 07/09/24 at 0330, For 1 dose $Given 07/09/2024 3:33 AM CDT 2 mg LORazepam (ATIVAN) tablet 1 mg 1 mg, Oral, ONCE, On 07/09/24 at 0325, For 1 dose $Given 07/09/2024 3:33 AM CDT 1 mg documented in this encounter Active and Recently Administered Medications Times are shown in CDT. Scheduled Medication Order 07/07/2024 07/08/2024 07/09/2024 diphenhydrAMINE (BENADRYL) capsule 50 mg (COMPLETED) 50 mg, Oral, ONCE, On 07/09/24 at 0210, For 1 dose 214 ($Given - Provi rosita: Jessica Dash RN) famotidine (PEPCID) injection 20 mg (COMPLETED) 20 mg, Intravenous, Administer over 2 Minutes, ONCE, On 07/09/24 at 0210, For 1 dose, For ordered IV doses 1-20 mg, give IV Push diluted with 5-10 mL NS over a minimum of 2 minutes. 214 ($Given - Provi rosita: Jessica Dash RN) HYDROmorphone (DILAUDID) tablet 2 mg (COMPLETED) 2 mg, Oral, ONCE, On 07/09/24 at 0040, For 1 dose 0058 ($Given - Provi rosita: Aida Alexandre RN) HYDROmorphone (DILAUDID) tablet 2 mg (COMPLETED) 2 mg, Oral, ONCE, On 07/09/24 at 0330, For 1 dose 0333 ($Given - Provi rosita: Jessica Dash RN) LORazepam (ATIVAN) tablet 1 mg (COMPLETED) 1 mg, Oral, ONCE, On 07/09/24 at 0325, For 1 dose 0333 ($Given - Provi rosita: Jessica Dash RN) 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 Assessment Noted Time PHQ-9 Depression Total Score: 4 02/21/20 24 1:54 PM CDT documented as of this encounter Care Teams Epic Prelude Analyst Relationship Specialty Start [place] [address] [address] [address] PCP - General Family Medicine 04/22/23 [place] [address] [address] [address] Assigned Pain Medication Provider 12/07/22 [place] [address] [address] [address] Assigned PCP 01/23/23 [place] [address] [place] [address] Assigned Musculoskeletal Provider 01/23/23 09/19/24 Gregorio Dalton PA-C [address] [address] Assigned Surgical Provider 05/22/23 07/20/24 Kingsley Garcia MD [address] [place] [address] Assigned Heart and Vascular Provider 08/07/23 [place] [address] [place] [address] Family Medicine 09/10/23 Master Shea PA-C [address] [place] [address] Physician Supervisor Frame Sample And Pattern Gastroenterology 09/10/23 Allyssa Justice MD [facility] [address] [place] [place] [address] Hematology & Oncology 12/10/23 Genaro Christian MD [address] [place] [id number] Cardiovascular Disease 12/22/23 Master Shea PA-C [address] [place] [address] Assigned Gastroenterology Provider 12/23/23 Sienna Guillermo DO [address] [place] [id number] Physician Cardiovascular Disease 01/18/24 Allyssa Justice MD [facility] [address] [place] [id number] Assigned Cancer Care Provider 03/21/24 documented as of this encounter
--- OUTSIDE RECORDS SUMMARY | 2024-09-21 22:41 | XMS_ITS | Encounter Summary ---
Author Organization [facility] Address [address] [place] [address] Care Team Providers Care Electrician Substation Supervisor Name Role Phone Segundo Mcclelland MD Unavailable [phone] Segundo Mcclelland MD Unavailable +[phone] Qamar Jackson MD Unavailable Segundo Mcclelland MD Primary Care Provider + Gregorio Dalton PA-C Unavailable +[phone] Kingsley Garcia MD Unavailable + [phone] Segundo Mcclelland MD Unavailable +[phone] Master Shea PA-C Unavailable Allyssa Justice MD Unavailable [phone] Genaro Christian MD Unavailable + [phone] Master Shea PA-C Unavailable Sienna Guillermo DO Unavailable +[phone] Allyssa Justice MD Unavailable [phone] Encounter Details Date Type Department Care Team (Latest Contact Info) Description 07/08/2024 Travel Social History Tobacco Use Types Packs/Day [...] in an abandoned building, in an overnight detention, or couch-surfing.) Yes 08/26/2023 Are you worried [...] AM CDT 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 Gender Identity Female 05/26/2021 10:37 AM CDT [...] Info) Description 02/20/2025 10:20 AM CDT Appointment [facility] [address] [facility] [address] [place] [address] Allyssa Justice MD [facility] [address] [place] [address] [place] [address] 02/27/2025 10:40 AM CDT Virtual Visit [facility] [address] [place] [address] [facility] Medical Ctr [facility] [phone] Allyssa Justice MD [facility] [address] [place] [address] [place] [address] documented as of this encounter Visit Diagnoses Not on file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 Assessment Noted Time PHQ-9 Depression Total Score: 4 02/21/20 24 1:54 PM CDT documented as of this encounter Care Teams Electrician Substation Supervisor Relationship Specialty Start [place] [address] [address] [address] PCP - General Family Medicine 04/22/23 [place] [address] [address] [address] Assigned Pain Medication Provider 12/07/22 [place] [address] [address] [address] Assigned PCP 01/23/23 [place] [address] [address] [place] [address] Assigned Musculoskeletal Provider 01/23/23 09/19/24 Gregorio Dalton PA-C [address] [place] [address] [address] Assigned Surgical Provider 05/22/23 07/20/24 Kingsley Garcia MD [address] [place] [address] Assigned Heart and Vascular Provider 08/07/23 [place] [address] [place] [address] Family Medicine 09/10/23 Master Shea PA-C [address] [place] [address] Physician Preschool Assistant Principal Gastroenterology 09/10/23 Allyssa Justice MD [facility] [address] [place] [address] [place] [address] Hematology & Oncology 12/10/23 Genaro Christian MD [address] [place] [address] Cardiovascular Disease 12/22/23 Master Shea PA-C [address] [place] [address] Assigned Gastroenterology Provider 12/23/23 Sienna Guillermo DO [address] [place] [address] Physician Cardiovascular Disease 01/18/24 Allyssa Justice MD [facility] [address] [place] [address] [place] [address] Assigned Cancer Care Provider 03/21/24 documented as of this encounter
--- OUTSIDE RECORDS SUMMARY | 2024-09-21 22:41 | XMS_ITS | Encounter Summary ---
Author Organization [facility] Address [address] [place] [address] Care Team Providers Care County Tax Assessor Name Role Phone Segundo Mcclelland MD Unavailable [phone] Segundo Mcclelland MD Unavailable +[phone] Qamar Jackson MD Unavailable Segundo Mcclelland MD Primary Care Provider + Gregorio Dalton PA-C Unavailable +[phone] Kingsley Garcia MD Unavailable + [phone] Segundo Mcclelland MD Unavailable +[phone] Master Shea PA-C Unavailable Allyssa Justice MD Unavailable [phone] Genaro Christian MD Unavailable + [phone] Master Shea PA-C Unavailable Sienna Guillermo DO Unavailable +[phone] Allyssa Justice MD Unavailable [phone] Encounter Details Date Type Department Care Team (Latest Contact Info) Description 07/15/2024 Travel Social History Tobacco Use Types Packs/Day [...] AM CDT 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 Gender Identity Female 05/26/2021 10:37 AM CDT [...] Info) Description 02/20/2025 10:20 AM CDT Appointment [facility] [address] [facility] [address] [place] [address] Allyssa Justice MD [facility] [address] [place] [address] [place] [address] 02/27/2025 10:40 AM CDT Virtual Visit [facility] [address] [place] [address] [facility] Medical Ctr [facility] [place] [phone] Allyssa Justice MD [facility] [address] [place] [address] [place] [address] documented as of this encounter Visit Diagnoses Not on file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 Assessment Noted Time PHQ-9 Depression Total Score: 4 02/21/20 24 1:54 PM CDT documented as of this encounter Care Teams County Tax Assessor Relationship Specialty Start [place] [address] [address] [address] PCP - General Family Medicine 04/22/23 [place] [address] [address] [address] Assigned Pain Medication Provider 12/07/22 [place] [address] [address] [address] Assigned PCP 01/23/23 [place] [address] [place] [address] Assigned Musculoskeletal Provider 01/23/23 09/19/24 Gregorio Dalton PA-C [address] [place] [address] [address] Assigned Surgical Provider 05/22/23 07/20/24 Kingsley Garcia MD [address] [place] [address] Assigned Heart and Vascular Provider 08/07/23 [place] [address] [place] [address] Family Medicine 09/10/23 Master Shea PA-C [address] [place] [address] Physician Teaching Supervisor Gastroenterology 09/10/23 Allyssa Justice MD [facility] [address] [place] [address] [place] [address] Hematology & Oncology 12/10/23 Genaro Christian MD [address] [place] [address] Cardiovascular Disease 12/22/23 Master Shea PA-C [address] [place] [address] Assigned Gastroenterology Provider 12/23/23 Sienna Guillermo DO [address] [place] [address] Physician Cardiovascular Disease 01/18/24 Allyssa Justice MD [facility] [address] [place] [address] [place] [address] Assigned Cancer Care Provider 03/21/24 documented as of this encounter
--- OUTSIDE RECORDS SUMMARY | 2024-09-21 22:41 | XMS_ITS | Encounter Summary ---
Author Organization [facility] Address [address] [place] [address] Care Team Providers Care Sterile Supply Technician Name Role Phone Segundo Mcclelland MD Unavailable [phone] Segundo Mcclelland MD Unavailable [phone] Qamar Jackson MD Unavailable Segundo Mcclelland MD Primary Care Provider + Gregorio Dalton PA-C Unavailable +[phone] Kingsley Garcia MD Unavailable + [phone] Segundo Mcclelland MD Unavailable [phone] Master Shea PA-C Unavailable Allyssa Justice MD Unavailable [phone] Genaro Christian MD Unavailable + [phone] Master Shea PA-C Unavailable Sienna Guillermo DO Unavailable [phone] Allyssa Justice MD Unavailable [phone] Declan Leavitt MD Unavailable Ugo Ochoa MD Unavailable Encounter Details Date Type Department Care Team (Late st Contact Info) Description 07/18/2024 MyC Medical Advice [facility] [place] 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 Gender Identity Female 05/26/2021 10:37 AM CDT [...] 10:20 AM CDT Appointment [facility] [address] [place] [address] Allyssa Justice MD [facility] [address] [place] [address] 02/27/2025 10:40 AM CDT Virtual Visit [facility] [address], [place] [address] [facility] Medical Ctr [place] [phone] Allyssa Justice MD [facility] [address] [place] [address] [place] [address] documented as of this encounter Visit Diagnoses Not on file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 Assessment Noted Time PHQ-9 Depression Total Score: 4 02/21/20 24 1:54 PM CDT documented as of this encounter Care Teams Sterile Supply Technician Relationship Specialty Start [place] [address] [address] [address] PCP - General Family Medicine 04/22/23 [place] [address] [address] [address] Assigned Pain Medication Provider 12/07/22 [place] [address] [address] [address] Assigned PCP 01/23/23 [place] [address] [place] [address] Assigned Musculoskeletal Provider 01/23/23 09/19/24 Gregorio Dalton PA-C [address] [place] [address] [address] Assigned Surgical Provider 05/22/23 07/20/24 Kingsley Garcia MD [address] [place] [address] Assigned Heart and Vascular Provider 08/07/23 [place] [address] [place] [address] Family Medicine 09/10/23 Master Shea PA-C [address] [place] [address] Physician Trust Manager Gastroenterology 09/10/23 Allyssa Justice MD [facility] [address] [place] [address] Hematology & Oncology 12/10/23 Genaro Christian MD [address] [place] [address] 169685 Cardiovascular Disease 12/22/23 Master Shea PA-C [address] [place] [address] Assigned Gastroenterology Provider 12/23/23 Sienna Guillermo DO [address] [place] [address] Physician Cardiovascular Disease 01/18/24 Allyssa Justice MD [facility] [address] [place] [address] [place] [address] Assigned Cancer Care Provider 03/21/24 Declan Leavitt MD [address] [place] [address] [place] [address] Assigned Surgical Provider 07/21/24 Ugo Ochoa MD [address] [place] [address] Assigned Neuroscience Provider 09/20/24 documented as of this encounter
--- OUTSIDE RECORDS SUMMARY | 2024-09-21 22:41 | XMS_ITS | Encounter Summary ---
Author Organization [facility] Address [address] [place] [address] Care Team Providers Care Hostage Negotiator Name Role Phone Segundo Mcclelland MD Unavailable [phone] Segundo Mcclelland MD Unavailable +[phone] Qamar Jackson MD Unavailable Segundo Mcclelland MD Primary Care Provider + Gregorio Dalton PA-C Unavailable [phone] Kingsley Garcia MD Unavailable + [phone] Segundo Mcclelland MD Unavailable +[phone] Master Shea PA-C Unavailable Allyssa Justice MD Unavailable [phone] Genaro Christian MD Unavailable Master Shea PA-C Unavailable Sienna Guillermo DO Unavailable +[phone] Allyssa Justice MD Unavailable [phone] Declan Leavitt MD Unavailable Reason for Visit * Reason Onset Date Comments Orders 07/20/2024 Encounter Details Date Type Department Care Team (Late st Contact Info) Description 07/20/2024 Telephone [facility] [place] [address] [facility] [address] [place] [address] [address] [address] Orders Social History Tobacco Use Types Packs/Day [...] in an abandoned building, in an overnight longterm, or couch-surfing.) Yes 08/26/2023 Are you worried [...] AM CDT 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 Jolie Solomon RN on 07/21/2024 at 2:34 PM * Telephone Encounter - Segundo Mcclelland MD - 07/21/2024 1:04 PM CDT May discontinue home infusion. Segundo Mcclelland MD * Telephone Encounter - Dara Ponce RN - 07/20/2024 8:51 AM CDT Bharat from [facility] infusion calling. Bharat states that they have not provided services for Sandi for 1 month. Wondering if patient stillneeds home infusions or if they are able to discharge her? Needing discharge order if so. Home Care is calling regarding an established patient with [facility]. Requesting orders from: Segundo Mcclelland Provider is following patient: Yes Is this a 60-day recertification request? No Orders Requested Home infusion services- discharge if services are not needed. Information was gathered and will be sent to provider for review. RN will contact Home Care with information after provider review. Confirmed ok to leave a detailed message with call back. Contact information confirmed and updated as needed. Dara Ponce RN documented in this encounter Plan of Treatment Upcoming Encounters Date Type Department Care Team (Late st Contact Info) Description 02/20/2025 10:20 AM CDT Appointment [facility] [address] [facility] [address] [place] [address] Allyssa Justice MD [facility] [address] [address] [address] 02/27/2025 10:40 AM CDT Virtual Visit [facility] [address] [place] [address] [facility] Medical Ctr [place] [phone] Allyssa Justice MD [facility] [address] [place] [address] [place] [address] documented as of this encounter Visit Diagnoses Not on file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 Assessment Noted Time PHQ-9 Depression Total Score: 4 02/21/20 1:54 PM CDT documented as of this encounter Care Teams Hostage Negotiator Relationship Specialty Start [place] [address] [address] [address] PCP - General Family Medicine 04/22/23 [place] [address] [address] [address] Assigned Pain Medication Provider 12/07/22 [place] [address] [address] [address] Assigned PCP 01/23/23 [place] [address] [place] [address] Assigned Musculoskeletal Provider 01/23/23 09/19/24 Gregorio Dalton PA-C [address] [address] [address] Assigned Surgical Provider 05/22/23 07/20/24 Kingsley Garcia MD [address] [place] [address] Assigned Heart and Vascular Provider 08/07/23 [place] [address] [place] [address] Family Medicine 09/10/23 Master Shea PA-C [address] [place] [place] [address] Physician Vessel Ordinary Seaman Gastroenterology 09/10/23 Allyssa Justice MD [facility] [address] [place] [address] Hematology & Oncology 12/10/23 Genaro Christian MD [address] [place] [address] Cardiovascular Disease 12/22/23 Master Shea PA-C [address] [place] [address] Assigned Gastroenterology Provider 12/23/23 Sienna Guillermo DO [address] [place] [address] Physician Cardiovascular Disease 01/18/24 Allyssa Justice MD [facility] [address] [place] [address] Assigned Cancer Care Provider 03/21/24 Declan Leavitt MD [address] [place] [address] Assigned Surgical Provider 07/21/24 documented as of this encounter
--- OUTSIDE RECORDS SUMMARY | 2024-09-21 22:42 | XMS_ITS | Encounter Summary ---
Author Organization [facility] Address [address] [place] [address] Care Team Providers Care State Auditor Name Role Phone Segundo Mcclelland MD Unavailable [phone] Segundo Mcclelland MD Unavailable +[phone] Qamar Jackson MD Unavailable Segundo Mcclelland MD Primary Care Provider + Gregorio Dalton PA-C Unavailable [phone] Kingsley Garcia MD Unavailable + [phone] Segundo Mcclelland MD Unavailable [phone] Master Shea PA-C Unavailable Allyssa Justice MD Unavailable [phone] Genaro Christian MD Unavailable + [phone] Master Shea PA-C Unavailable Sienna Guillermo DO Unavailable +[phone] Allyssa Justice MD Unavailable [phone] Declan Leavitt MD Unavailable Ugo Ochoa MD Unavailable Encounter Details Date Type Department Care Team (Late st Contact Info) Description 06/30/2024 MyC Medical Advice [facility] [address] [place] [address] Ashly Donnelly, RN Social History Tobacco Use Types Packs/Day [...] in an abandoned building, in an overnight jail, or couch-surfing.) Yes 08/26/2023 Are you worried [...] AM CDT 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 Gender Identity Female 05/26/2021 10:37 AM [...] Info) Description 02/20/2025 10:20 AM CDT Appointment [facility] Imaging [address] [place] [address] Allyssa Justice MD [facility] [address] [place] [address] 02/27/2025 10:40 AM CDT Virtual Visit [facility] [address] [facility] Ctr [place], [place] [phone] Allyssa Jutsice MD [facility] [address] [place] [id number] documented as of this encounter Visit Diagnoses Not on file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 Assessment Noted Time PHQ-9 Depression Total Score: 4 02/21/20 24 1:54 PM CDT documented as of this encounter Care Teams State Auditor Relationship Specialty Start [place] [address] [address] [address] PCP - General Family Medicine 04/22/23 [place] [address] [address] [address] Assigned Pain Medication Provider 12/07/22 [place] [address] [address] [address] Assigned PCP 01/23/23 [place] [address] [place] [address] Assigned Musculoskeletal Provider 01/23/23 09/19/24 Gregorio Dalton PA-C [address] [place] [address] Assigned Surgical Provider 05/22/23 07/20/24 Kingsley Garcia MD [address] [place] [address] Assigned Heart and Vascular Provider 08/07/23 [place] [address] [place] [address] Family Medicine 09/10/23 Master Shea PA-C [address] [place] [place] [address] Physician Tape Folding Machine Operator Gastroenterology 09/10/23 Allyssa Justice MD [facility] [address] [place] [address] Hematology & Oncology 12/10/23 Genaro Christian MD [address] [place] [address] Cardiovascular Disease 12/22/23 Master Shea PA-C [address] [place] [address] Assigned Gastroenterology Provider 12/23/23 Sienna Guillermo DO [address] [place] [address] Physician Cardiovascular Disease 01/18/24 Allyssa Justice MD [facility] [address] [place] [address] Assigned Cancer Care Provider 03/21/24 Declan Leavitt MD [address] [place] [address] [place] [address] Assigned Surgical Provider 07/21/24 Ugo Ochoa MD [address] [place], [place] [address] Assigned Neuroscience Provider 09/20/24 documented as of this encounter
--- OUTSIDE RECORDS SUMMARY | 2024-09-21 22:42 | XMS_ITS | Encounter Summary ---
Author Organization [facility] Address [address] [place] [id number] Care Team Providers Care Manager Validation Name Role Phone Segundo Mcclelland MD Unavailable [phone] Segundo Mcclelland MD Unavailable [phone] Qamar Jackson MD Unavailable Segundo Mcclelland MD Primary Care Provider + Gregorio Dalton PA-C Unavailable [phone] Kingsley Garcia MD Unavailable [phone] Segundo Mcclelland MD Unavailable [phone] Master Shea PA-C Unavailable Allyssa Justice MD Unavailable [phone] Genaro Christian MD Unavailable [phone] Master Shea PA-C Unavailable Sienna Guillermo DO Unavailable [phone] Allyssa Justice MD Unavailable [phone] Reason for Visit * Reason Comments Fall Encounter Details Date Type Department Care Team (Late st Contact Info) Description 07/07/2024 7:36 AM CDT - 07/08/2024 1:54 AM CDT [facility] Emergency Department [address] [place] [id number] Kamryn Moreau DO [address] [facility] 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 Gender Identity Female 05/26/2021 10:37 AM CDT Sexual Orientation Straight 05/26/2021 10 :37 AM CDT Occupation Industry Job Start Date Job End Date unemployed Not on file Not on file Not on file Not on file Not on file Not on file Not on file documented as of this encounter Last Filed Vital Signs Vital Sign Reading Time Taken Comments Blood Pressure 146/95 07/07/2024 10:52 PM CDT Pulse 108 07/07/2024 10:52 PM CDT Temperature 36.6 ??C (97.9 ??F) 07/07/2024 8:11 PM CD T Respiratory Rate 16 07/07/2024 8:11 PM CDT Oxygen Saturation 94% 07/07/2024 10:52 PM CDT Inhaled Oxygen Concentration - - Weight - - Height - - Body Mass Index - - documented in this encounter Discharge Instructions * Discharge Instructions* Cecy San MD - 07/08/2024 12:44 AM CDT Please make an appointment to follow up with Your Primary Care Provider as soon as possible as needed. Return for worsening numbness, weakness, pain, or other concerns. * Attachments The following attachments cannot be sent through Care Everywhere. * Fall Prevention (Indonesian) * Numbness and Tingling (Indonesian) documented in this encounter Medications at Time [...] anxiety naloxone (NARCAN) 4 MG/0.1ML nasal spray [place] 4 mg into one nostril alternating nostrils once as needed for opioid reversal 06/28/2023 pantoprazole (PROTONIX) 40 MG EC tablet Take 40 mg by mouth daily sodium chloride 0.9% infusionIndication s:Gastroparesis Inject 1,000 mLs into the vein as needed for other (Wednesday with IV antibiotic) 29078 mL 06/02/2024 sucralfate (CARAFATE) 1 GM tabletIndications: [...] as of this encounter Progress Notes * Love Hernandes - 07/07/2024 9:23 AM CDT 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 documented in this encounter Consult Notes * Anuel Lynch MD - 07/07/2024 7:58 PM CDTAssociated Order(s): NEUROSURGERY ADULT IP CONSULT Images from the original note were not included. [facility] NEUROSURGERY CONSULTATION This consultation was requested by Dr. Peralta from the Emergency Department service. Reason for Consultation: Back and leg pain HPI: Sandi Lopez is a 38 year old female with a notable past medical history of pulmonary embolism on eliquis, chronic pain syndrome, orthostatic hypotension, history of corazon cheatham syndrome, reported L4-5 lumbar discectomy (not visible on imaging), borderline personality disorder and hx of malingering (extensive documentation in the EMR) presenting today with complaint of leg pain after a fall. The patient reports that she was climbing up stairs, and she had a fall backward. She hit her hip. Her son called her , who called the ambulance. She reports that she has pain all over her back and legs. She reports that her leg is completely numb. She reports that sitting up helps her pain get better. She initially tells me that she does not have any urinary or bowel symptoms, but subsequently tells me that she is having some leaking. She is very tearful. The numbness she describes on her leg encompasses the full left leg and the base of her right leg, near the arch. On chart review, the patient has had ongoing leg numbness over the course of the past year. Initially there was some concern of discitis osteo-myelitis as well, though an IR biopsy that was done was non-revealing. The patient has presented to the ED several times with similar complaints of back pain, per chart review. The patient has an ED care plan that recommends against admission due to behavio r that is reportedly manipulative to get IV opioids, IV benzodiazepines. ROS: 10 point ROS in other systems negative other than noted in HPI. Physical exam: Blood pressure (!) 146/95, pulse 108, temperature 97.9 ??F (36.6 ??C), temperature source Oral, resp. rate 16, last menstrual period 12/10/2017, SpO2 94%, not currently . General: Well appearing, very distressed and crying HEENT: atraumatic, normocephalic PULM: Unlabored respirations NEUROLOGIC: -- Awake; Alert; oriented x 3 -- Follows commands briskly -- Speech fluent, spontaneous. No aphasia or dysarthria. -- no gaze preference. No apparent hemineglect. Cranial Nerves: -- visual starks full to confrontation, PERRL 3-2mm bilat and brisk, extraocular movements intact -- face symmetrical, tongue midline -- sensory V1-V3 intact bilaterally -- palate elevates symmetrically, uvula midline -- hearing grossly intact bilat -- Trapezii 5/5 strength bilat symmetric -- Cerebellar: Finger nose finger without dysmetria, intact rapid alternating motions bilaterally Motor: Normal bulk / tone; no tremor, rigidity, or bradykinesia. No muscle wasting or fasciculations No Pronator Drift Full strength in upper and lower extremities Sensory: diminished sensation to Left leg to light touch but inconsistent, as when asked to close her eyes, she can feel that touch is the same. Reported diminished sensation on plantar surface of R foot. Reflexes: no clonus, normal reflexes Gait: deferred Pertinent Imaging and Labs: MR Lumbar Spine 07/07/2024: 1. No previous left hemilaminectomy. Mild lumbar spondylosis. No canal or foraminal narrowing. 2. No acute fracture. 3. Moderate degenerative disc disease L5-S1. CT Lumbar spine 07/07/2024: No acute fractures. ASSESSMENT: Mary Lopez is a 38 year old female, hx of multiple PEs on chronic anticoagulation, who presents to the ED after a reported fall with back and bilateral leg pain, with the left leg being worse. Her CT is unremarkable, and imaging demonstrates no fractures or evidence of stenosis. Per her report, her left leg is numb. She is full strength on exam with appropriate reflexes. No clear neurosurgical etiology for the patient's leg numbness or pain. May consider additional work-up to rule out other etiologies. RECOMMENDATIONS: -- No neurosurgical intervention indicated at this time -- Agree with trauma evaluation -- Would rule out/investigate other causes for pain/numbness in leg, doesn't appear to be originating from the spine. CT and MRI both appear without any acute pathology, and she does not have any alarm symptoms of cauda equina. -- May consider PT given reported debilitation -- May consider non-urgent neurology evaluation for EMG to assess for a peripheral neuropathy -- May consider MRI or work-up of extremity -- Pain control per ED/medicine if admitted The patient's presentation, exam, and imaging and the listed recommendations/plan were discussed with Dr. Mata, neurosurgery chief resident. Anuel Lynch MD PGY-2 Department of Neurosurgery Formerly named [facility] Pager: [phone] On-call: [phone] Cosigned by Seth Antoine MD at 07/08/2024 11:46 AM CDT Associated attestation - Seth Antoine MD - 07/08/2024 11:46 AM CDT Discussed with resident team. Recommend workup as outlined. documented in this encounter ED Notes * Judson Peralta MD - 07/07/2024 7:39 PM CDT Emergency Department Patient Sign-out Brief HPI: This is a 38 year old female signed out to me by Dr. Moreau . See initial ED Provider note for details of the presentation. Significant Events prior to my assuming care: n/a Exam: Patient Vitals for the past 24 hrs: BP Temp Temp src Pulse Resp SpO2 07/07/24 1845 (!) 148/89 -- -- -- 18 100 % 07/07/24 0728 104/78 97.8 ??F (36.6 ??C) Oral 115 16 100 % General: Patient is in no acute distress currently. HEENT: Normocephalic atraumatic. Neck: Supple Cardiovascular: Heart rate normal Pulmonary: Patient is in no respiratory distress Abdomen: Soft nontender nondistended with no peritonitis Extremities: No signs of any significant or life-threatening trauma. Neurologic: Patient endorsing complete numbness of left lower extremity, numbness on bottom of right foot, not moving to painful stimuli, minimal movements, 2 out of 5 left lower extremity strength, 4 out of 5 right lower extremity strength ED RESULTS: Results for orders placed or performed during the hospital encounter of 07/07/24 (from the past 24 hour(s)) XR Knee Port Right G/E 4 Views Status: None Collection Time: 07/07/24 8:41 AM Narrative 2 views right knee radiographs 07/07/2024 8:52 [...] aspect of mid leg and distal thigh. Impression Impression: 1. No acute osseous abnormality. 2. No substantial degenerative change. [facility] CBC with platelets differential Status: Abnormal Collection Time: 07/07/24 9:17 AM Narrative The following orders were created for panel order CBC with platelets differential. Procedure Abnormality Status --------- ------ CBC with platelets and d...[[id number]] Abnormal Final result Please view results for these tests on the individual orders. Comprehensive metabolic panel Status: Abnormal Collection Time: 07/07/24 9:17 AM Result Value Ref Range Sodium 136 135 - 145 mmol/L Potassium 5.0 3.4 - 5.3 mmol/L Carbon Dioxide (CO2) 20 (L) 22 - 29 mmol/L Anion Gap 14 7 - 15 mmol/L Urea Nitrogen 21.5 (H) 6.0 - 20.0 mg/dL Creatinine 0.60 0.51 - 0.95 mg/dL GFR Estimate >90 >60 mL/min/1.73m2 Calcium 9.1 8.8 - 10.4 mg/dL Chloride 102 98 - 107 mmol/L Glucose 107 (H) 70 - 99 mg/dL Alkaline Phosphatase 227 (H) 40 - 150 U/L AST 124 (H) 0 - 45 U/L ALT 232 (H) 0 - 50 U/L Protein Total 8.1 6.4 - 8.3 g/dL Albumin 4.4 3.5 - 5.2 g/dL Bilirubin Total <0.2 <=1.2 mg/dL Lactic acid whole blood with 1x repeat in 2 hr when >2 Status: Normal Collection Time: 07/07/24 9:17 AM Result Value Ref Range Lactic Acid, Initial 1.2 0.7 - 2.0 mmol/L Magnesium Status: Normal Collection Time: 07/07/24 9:17 AM Result Value Ref Range Magnesium 2.2 1.7 - 2.3 mg/dL Phosphorus Status: Abnormal Collection Time: 07/07/24 9:17 AM Result Value Ref Range Phosphorus 4.9 (H) 2.5 - 4.5 mg/dL CK total Status: Abnormal Collection Time: 07/07/24 9:17 AM Result Value Ref Range CK 24 (L) 26 - 192 U/L CBC with platelets and differential Status: Abnormal Collection Time: 07/07/24 9:17 AM Result Value Ref Range WBC Count 7.7 4.0 - 11.0 10e3/uL RBC Count 4.00 3.80 - 5.20 10e6/uL Hemoglobin 8.8 (L) 11.7 - 15.7 g/dL Hematocrit 29.9 (L) 35.0 - 47.0 % MCV 75 (L) 78 - 100 fL MCH 22.0 (L) 26.5 - 33.0 pg MCHC 29.4 (L) 31.5 - 36.5 g/dL RDW 19.6 (H) 10.0 - 15.0 % Platelet Count 508 (H) 150 - 450 10e3/uL % Neutrophils 62 % % Lymphocytes 27 % % Monocytes 8 % % Eosinophils 2 % % Basophils 1 % % Immature Granulocytes 0 % NRBCs per 100 WBC 0 <1 /100 Absolute Neutrophils 4.7 1.6 - 8.3 10e3/uL Absolute Lymphocytes 2.1 0.8 - 5.3 10e3/uL Absolute Monocytes 0.7 0.0 - 1.3 10e3/uL Absolute Eosinophils 0.2 0.0 - 0.7 10e3/uL Absolute Basophils 0.0 0.0 - 0.2 10e3/uL Absolute Immature Granulocytes 0.0 <=0.4 10e3/uL Absolute NRBCs 0.0 10e3/uL HCG quantitative Status: Normal Collection Time: 07/07/24 9:17 AM Result Value Ref Range hCG Quantitative <1 <5 mIU/mL EKG 12-lead, tracing only Status: None (Preliminary result) Collection Time: 07/07/24 9:20 AM Result Value Ref Range Systolic Blood Pressure mmHg Diastolic Blood Pressure mmHg Ventricular Rate 96 BPM Atrial Rate 96 BPM NC Interval 154 ms QRS Duration 66 ms QT 336 ms QTc 424 ms P [place] 56 degrees R AXIS 51 degrees T [place] 52 degrees Interpretation ECG Sinus rhythm Low voltage QRS Borderline ECG Head CT w/o contrast Status: None Collection Time: 07/07/24 4:24 PM Narrative EXAM: CT HEAD W/O CONTRAST 07/07/2024 4:24 PM HISTORY: syncopal episode down the stairs, anticoagulated COMPARISON: Head CT 06/27/2024. TECHNIQUE: Using multidetector thin collimation helical acquisition technique, axial, coronal and sagittal CT images from the skull base to the vertex were obtained without intravenous contrast. Radio Interference Expert (topogram) image(s) also obtained and reviewed. FINDINGS: No acute intracranial hemorrhage, mass effect, or midline shift. No acute loss of downing-white matter differentiation in the cerebral hemispheres. Ventricles are proportionate to the cerebral sulci. Clear basal cisterns. The bony calvaria and the bones of the skull base are normal. The visualized portions of the paranasal sinuses and mastoid air cells are clear. Grossly normal orbits. Multiple molar caries bilaterally. Impression IMPRESSION: No acute intracranial pathology. JESUS CAMPO MD CT Lumbar Spine w/o Contrast Status: None Collection Time: 07/07/24 4:25 PM Narrative EXAM: CT LUMBAR SPINE W/O CONTRAST 07/07/2024 [...] paraspinous tissues are grossly within normal limits. Impression IMPRESSION: 1. No acute fracture or traumatic subluxation. 2. Multilevel lumbar spondylosis, without high-grade spinal canal stenosis or neural foraminal narrowing. I have personally reviewed the examination and initial interpretation and I agree with the findings. PAUL JUÁREZ MD ED MEDICATIONS: Medications Lidocaine (LIDOCARE) 4 % Patch 1 patch (1 patch Transdermal Patch/Med Removed 07/07/24 1658) sodium chloride 0.9% BOLUS 1,000 mL (0 mLs Intravenous Stopped 07/07/24 1146) HYDROmorphone (DILAUDID) tablet 2 mg (2 mg Oral $Given 07/07/24 1054) acetaminophen (TYLENOL) tablet 1,000 mg (1,000 mg Oral Not Given 07/07/24 0939) methocarbamol (ROBAXIN) tablet 500 mg (500 mg Oral Not Given 07/07/24 0939) methocarbamol (ROBAXIN) tablet 500 mg (500 mg Oral Not Given 07/07/24 1354) HYDROmorphone (DILAUDID) tablet 2 mg (2 mg Oral $Given 07/07/24 1842) diphenhydrAMINE (BENADRYL) injection 50 mg (50 mg Intravenous Not Given 07/07/24 1848) Impression: No diagnosis found. Plan: Pending studies include CT lumbar spine Patient signed out to me pending CT lumbar spine Ordered abdominal ultrasound to rule out liver pathology as her liver enzymes are elevated, pendingultrasound at time of signout On reevaluation patient reporting complete numbness of her left leg as well as numbness of her right foot, so ordered MRI lumbar spine with and without contrast, called trauma surgery as well as neurosurgery At time of signout to Dr. San patient pending ultrasound of abdomen, MRI lumbar spine, trauma surgery and neurosurgery recommendations.. MD Fabian Morris Collin, MD 07/07/241947 * Giovani Jerome RN - 07/07/2024 4:56 PM CDT ED provider notified that pt is allergic to contrast per [facility] chart - pt states she needs IV benadryl before contrast and then is able to have imaging done. * Dana Meyers RN - 07/07/2024 7:31 AM CDT Images from the original note were not included. Fell at home penit[place] down stairs, fell and hit back, numbness down L leg. Triage Assessment (Adult) Row Name 07/07/24 0731 Triage Assessment Airway WDL WDL Respiratory WDL Respiratory WDL WDL Skin Circulation/Temperature WDL Skin Circulation/Temperature WDL WDL Cardiac WDL Cardiac WDL X tachycardic, hypotensive Peripheral/Neurovascular WDL Peripheral Neurovascular WDL X Cognitive/Neuro/Behavioral WDL Cognitive/Neuro/Behavioral WDL WDL * Kamryn Moreau DO - 07/07/2024 7:22 AM CDT ED Provider Note [facility] History Chief Complaint Patient presents with Fall HPI Sandi Lopez is a 38 year old female with past medical history of PICC bacteremia, PE on anticoagulation, chronic pain, POTS, gastroparesis, GI bleed, lumbar discectomy, borderline personalitydisorder, factitious disorder, malingering presents emergency department for chief complaint of fall. Patient states that she woke up this morning and was walking down the stairs to let the dogs out. Approximately penitentiary down the stairs, she felt her vision gets dark. She woke up on the ground, unsure how long she was laying on there. She had urinated herself. She thinks she fell down approximately 6 steps. She called her kids who called her ex-. She spoke with a nurse hotline who told her to go to the [facility]. She had severe midline low back pain and numbness to her entire left leg. She is unsure if she hit her head. She denies any neck or upper back pain. She denies any previous numbness or tingling or back pain. Denies any loss of bowel movement. She states these are the typical symptoms that she has before she has a syncopal episode secondary to her POTS. Sometimesshe will feel like there is a cold water sensation running down her head which did not occur today. Last dose of Eliquis was last night. She denies any chest pain, shortness of breath, headache, neckpain, other numbness or tingling, fevers. She was otherwise in her normal state of health besides not being able to eat this month. She states she had seizures as a kid, however those resolved. She is not on any antiseizure medications. She states that her PICC was removed. She is not getting IV fluids anymore. She was getting them daily. She states that for the past month she has not been able to have any oral intake at all except for little bits of powdered or medication solution. She states she has not been eating for the past month. She urinates once daily she states due to dehydration. She is set to get a G-tube, however there has been discussion between primary care, general surgery, GI regarding this. She states that she is stuck in the middle and nothing is happening. Her nextappointment to discuss this is the . Past Medical History Past Medical History: Diagnosis Date Abnormal Pap smear Elliott/2 LEEPs age 16 Allergic rhinitis Anemia 2011 [...] Procedure: ESOPHAGOGASTRODUODENOSCOPY; Surgeon: Meg Lee MD; Location: [facility]; Service: ESOPHAGOSCOPY, GASTROSCOPY, DUODENOSCOPY (EGD), COMBINED N/A 02/13/2016 Procedure: ESOPHAGOGASTRODUODENOSCOPY; Surgeon: Meg Lee MD; Location: [facility]; Service: ESOPHAGOSCOPY, GASTROSCOPY, DUODENOSCOPY (EGD), [...] Surgeon: Declan Mata MD; Location: [facility] OR; Service: OOPHORECTOMY Right REMOVE PORT VASCULAR ACCESS N/A 04/07/2024 Procedure: Basilic vein midline catheter placment and port removal; Surgeon: Malia Garrett DO; Location: [facility] OR [place] fracture lt foot surgery 10/1998 TONSILLECTOMY & ADENOIDECTOMY 1995 TRANSESOPHAGEAL ECHOCARDIOGRAM INTRAOPERATIVE N/A 09/17/2021 Procedure: ECHOCARDIOGRAM, TRANSESOPHAGEAL, INTRAOPERATIVE; Surgeon: GIO ANESTHESIA PROVIDER; Location: [facility] OR TUBAL LIGATION [...] all other systems negative. Physical Exam BP: 104/78 Pulse: 115 Temp: 97.8 ??F (36.6 ??C) Resp: 16 SpO2: 100 % Physical Exam General: Mild distress secondary to pain, tearful HENT: Normocephalic and atraumatic. Trachea midline. Normal voice. No signs of basilar skull fracture. No evidence of tongue biting Eyes: EOMI, conjunctivae normal. PERRLA Cardiovascular: Tachycardic, regular rhythm. No murmur heard. 2+ pulses throughout Pulmonary: No respiratory distress. Normal breath sounds bilaterally. Abdominal: no distension. Abdomen is soft. There is no mass. There is no abdominal tenderness. Musculoskeletal: Laying in bed, leaning to the left. No deformities or edema. No bruising or open skin/skin changes. Tender to midline lower lumbar spine without any bony step-off. Normal gluteal squeeze. Generalized decreased strength throughout, secondary to pain and participation of exam. Decreased sensation to light touch of entire left leg. Left leg able to move when commanded. Mild tenderness to the right upper anterior knee. Normal range of motion. No deformities. Nontender over the ribs, pelvis Skin: Warm, dry, and well perfused. Good turgor. Neurological: No focal deficit present. ED Course, Procedures, & Data Procedures Results for orders placed during the hospital encounter of 07/07/24 POC US RESUSCITATION Impression Bedside FAST (Focused Assessment with Sonography in [...] patient laying on her left side IMPRESSION: Limited FAST exam secondary to patient positioning and tolerance. There is no evidence of free fluid above or below right diaphragm, in the hepatorenal space, or theright paracolic gutters. Unable to visualize left side. There was no free fluid seen in the pelvis adjacent to the urinary bladder. There is no free fluid within the pericardium. Results for orders placed or performed during the hospital encounter of 07/07/24 POC US RESUSCITATION Status: None Impression Bedside FAST (Focused Assessment with Sonography in [...] patient laying on her left side IMPRESSION: Limited FAST exam secondary to patient positioning and tolerance. There is no evidence of free fluid above or below right diaphragm, in the hepatorenal space, or theright paracolic gutters. Unable to visualize left side. There was no free fluid seen in the pelvis adjacent to the urinary bladder. There is no free fluid within the pericardium. Head CT w/o contrast Status: None Narrative EXAM: CT HEAD W/O CONTRAST 07/07/2024 4:24 PM HISTORY: syncopal episode down the stairs, anticoagulated COMPARISON: Head CT 06/27/2024. TECHNIQUE: Using multidetector thin collimation helical acquisition technique, axial, coronal and sagittal CT images from the skull base to the vertex were obtained without intravenous contrast. Radio Interference Expert (topogram) image(s) also obtained and reviewed. FINDINGS: No acute intracranial hemorrhage, mass effect, or midline shift. No acute loss of downing-white matter differentiation in the cerebral hemispheres. Ventricles are proportionate to the cerebral sulci. Clear basal cisterns. The bony calvaria and the bones of the skull base are normal. The visualized portions of the paranasal sinuses and mastoid air cells are clear. Grossly normal orbits. Multiple molar caries bilaterally. Impression IMPRESSION: No acute intracranial pathology. JESUS CAMPO MD CT Lumbar Spine w/o Contrast Status: None Narrative EXAM: CT LUMBAR SPINE W/O CONTRAST 07/07/2024 [...] paraspinous tissues are grossly within normal limits. Impression IMPRESSION: 1. No acute fracture or traumatic subluxation. 2. Multilevel lumbar spondylosis, without high-grade spinal canal stenosis or neural foraminal narrowing. I have personally reviewed the examination and initial interpretation and I agree with the findings. PAUL JUÁREZ MD XR Knee Port Right G/E 4 Views Status: None Narrative 2 views right knee radiographs 07/07/2024 8:52 [...] aspect of mid leg and distal thigh. Impression Impression: 1. No acute osseous abnormality. 2. No substantial degenerative change. GA PATRICIO US Abdomen Complete Status: None Narrative EXAMINATION: US ABDOMEN COMPLETE, 07/07/2024 9:48 PM [...] No evidence of ascites or pleural effusions. Impression IMPRESSION: Hepatomegaly. No focal liver lesion demonstrated. Finding of hepatomegaly discussed with ER provided by Yg at 10:00 AM 07/08/2024 10:02 AM I have personally reviewed the examination and initial interpretation and I agree with the findings. EARLENE WINN MD MR Lumbar Spine w/o Contrast Status: None [facility] MR LUMBAR SPINE W/O CONTRAST 07/07/2024 10:46 PM CDT INDICATION: Left leg numbness, right foot numbness. Low back pain. Trauma and/or suspected fracture. Significant trauma. No lumbar CT result available; no known automatically detected potential contraindications to CT. TECHNIQUE: Routine. CONTRAST: None. COMPARISON: CT lumbar spine 07/07/2024. FINDINGS: Nomenclature is based on 5 lumbar type vertebral bodies. Rudimentary disc space at S1-S2.Mild Modic type II endplate change at L5-S1. No marrow edema. Normal distal spinal cord and cauda equina with conus medullaris at L1- L2. No definite extraspinal abnormality. Unremarkable visualized bony [...] disc bulging. No herniation. No facet arthropathy. Nospinal canal stenosis. No right neural foraminal stenosis. No left neural foraminal stenosis. L5-S1: Moderate loss of disc height and mild loss of T2 signal. No herniation. Mild facet arthropathy. No spinal canal stenosis. No right neural foraminal stenosis. No left neural foraminal stenosis. Impression CONCLUSION: 1. No previous left hemilaminectomy. Mild lumbar spondylosis. No canal or foraminal narrowing. 2. No acute fracture. 3. Moderate degenerative disc disease L5-S1. Comprehensive metabolic panel Status: Abnormal Result Value Ref Range Sodium 136 135 - 145 mmol/L Potassium 5.0 3.4 - 5.3 mmol/L Carbon Dioxide (CO2) 20 (L) 22 - 29 mmol/L Anion Gap 14 7 - 15 mmol/L Urea Nitrogen 21.5 (H) 6.0 - 20.0 mg/dL Creatinine 0.60 0.51 - 0.95 mg/dL GFR Estimate >90 >60 mL/min/1.73m2 Calcium 9.1 8.8 - 10.4 mg/dL Chloride 102 98 - 107 mmol/L Glucose 107 (H) 70 - 99 mg/dL Alkaline Phosphatase 227 (H) 40 - 150 U/L AST 124 (H) 0 - 45 U/L ALT 232 (H) 0 - 50 U/L Protein Total 8.1 6.4 - 8.3 g/dL Albumin 4.4 3.5 - 5.2 g/dL Bilirubin Total <0.2 <=1.2 mg/dL Lactic acid whole blood with 1x repeat in 2 hr when >2 Status: Normal Result Value Ref Range Lactic Acid, Initial 1.2 0.7 - 2.0 mmol/L Magnesium Status: Normal Result Value Ref Range Magnesium 2.2 1.7 - 2.3 mg/dL Phosphorus Status: Abnormal Result Value Ref Range Phosphorus 4.9 (H) 2.5 - 4.5 mg/dL CK total Status: Abnormal Result Value Ref Range CK 24 (L) 26 - 192 U/L CBC with platelets and differential Status: Abnormal Result Value Ref Range WBC Count 7.7 4.0 - 11.0 10e3/uL RBC Count 4.00 3.80 - 5.20 10e6/uL Hemoglobin 8.8 (L) 11.7 - 15.7 g/dL Hematocrit 29.9 (L) 35.0 - 47.0 % MCV 75 (L) 78 - 100 fL MCH 22.0 (L) 26.5 - 33.0 pg MCHC 29.4 (L) 31.5 - 36.5 g/dL RDW 19.6 (H) 10.0 - 15.0 % Platelet Count 508 (H) 150 - 450 10e3/uL % Neutrophils 62 % % Lymphocytes 27 % % Monocytes 8 % % Eosinophils 2 % % Basophils 1 % % Immature Granulocytes 0 % NRBCs per 100 WBC 0 <1 /100 Absolute Neutrophils 4.7 1.6 - 8.3 10e3/uL Absolute Lymphocytes 2.1 0.8 - 5.3 10e3/uL Absolute Monocytes 0.7 0.0 - 1.3 10e3/uL Absolute Eosinophils 0.2 0.0 - 0.7 10e3/uL Absolute Basophils 0.0 0.0 - 0.2 10e3/uL Absolute Immature Granulocytes 0.0 <=0.4 10e3/uL Absolute NRBCs 0.0 10e3/uL HCG quantitative Status: Normal Result Value Ref Range hCG Quantitative <1 <5 mIU/mL EKG 12-lead, tracing only Status: None (Preliminary result) Result Value Ref Range Systolic Blood Pressure mmHg Diastolic Blood Pressure mmHg Ventricular Rate 96 BPM Atrial Rate 96 BPM NC Interval 154 ms QRS Duration 66 ms QT 336 ms QTc 424 ms P [place] 56 degrees R AXIS 51 degrees T [place] 52 degrees Interpretation ECG Sinus rhythm Low voltage QRS Borderline ECG CBC with platelets differential Status: Abnormal Narrative The following orders were created for panel order CBC with platelets differential. Procedure Abnormality Status --------- ------ CBC with platelets and d...[[id number]] Abnormal Final result Please view results for these tests on the individual orders. Medications sodium chloride 0.9% BOLUS 1,000 mL (0 mLs Intravenous Stopped 07/07/24 1146) HYDROmorphone (DILAUDID) tablet 2 mg (2 mg Oral $Given 07/07/24 1054) acetaminophen (TYLENOL) tablet 1,000 mg (1,000 mg Oral Not Given 07/07/24 0939) methocarbamol (ROBAXIN) tablet 500 mg (500 mg Oral Not Given 07/07/24 0939) methocarbamol (ROBAXIN) tablet 500 mg (500 mg Oral Not Given 07/07/24 1354) Lidocaine (LIDOCARE) 4 % Patch 1 patch (1 patch Transdermal Patch/Med Removed 07/07/24 165) HYDROmorphone (DILAUDID) tablet 2 mg (2 mg Oral $Given 07/07/24 184) diphenhydrAMINE (BENADRYL) injection 50 mg (50 mg Intravenous Not Given 07/07/241847) LORazepam (ATIVAN) tablet 1 mg (1 mg Oral $Given 07/07/242008) acetaminophen (TYLENOL) tablet 650 mg (650 mg Oral $Given 07/07/242008) oxyCODONE IR (ROXICODONE) tablet 10 mg (10 mg Oral $Given 07/07/242008) HYDROmorphone (PF) (DILAUDID) injection 0.5 mg (0.5 mg Intravenous $Given 07/07/24 574) Labs Ordered and Resulted from Time of ED Arrival to Time of ED Departure COMPREHENSIVE METABOLIC PANEL - Abnormal Result Value Sodium 136 Potassium 5.0 Carbon Dioxide (CO2) 20 (*) Anion Gap 14 Urea Nitrogen 21.5 (*) Creatinine 0.60 GFR Estimate >90 Calcium 9.1 Chloride 102 Glucose 107 (*) Alkaline Phosphatase 227 (*) AST 124 (*) ALT 232 (*) Protein Total 8.1 Albumin 4.4 Bilirubin Total <0.2 PHOSPHORUS - Abnormal Phosphorus 4.9 (*) CK TOTAL - Abnormal CK 24 (*) CBC WITH PLATELETS AND DIFFERENTIAL - Abnormal WBC Count 7.7 RBC Count 4.00 Hemoglobin 8.8 (*) Hematocrit 29.9 (*) MCV 75 (*) MCH 22.0 (*) MCHC 29.4 (*) RDW 19.6 (*) Platelet Count 508 (*) % Neutrophils 62 % Lymphocytes 27 % Monocytes 8 % Eosinophils 2 % Basophils 1 % Immature Granulocytes 0 NRBCs per 100 WBC 0 Absolute Neutrophils 4.7 Absolute Lymphocytes 2.1 Absolute Monocytes 0.7 Absolute Eosinophils 0.2 Absolute Basophils 0.0 Absolute Immature Granulocytes 0.0 Absolute NRBCs 0.0 LACTIC ACID WHOLE BLOOD WITH 1X REPEAT IN 2 HR WHEN >2 - Normal Lactic Acid, Initial 1.2 MAGNESIUM - Normal Magnesium 2.2 HCG QUANTITATIVE - Normal hCG Quantitative <1 Critical care was not performed. Medical Decision Making The patient's presentation was of high complexity (a chronic illness severe exacerbation, progression, or side effect of treatment). The patient's evaluation involved: review of external note(s) from 3+ sources (see separate area of note for details) review of 3+ test result(s) ordered prior to this encounter (see separate area of note for details) strong consideration of a test (see separate area of note for details) that was ultimately deferred ordering and/or review of 3+ test(s) in this encounter (see separate area of note for details) independent interpretation of testing performed by another health professional (see separate area of note for details) The patient's management necessitated further care after sign-out to Dr. Peralta (see their note for further management). Assessment & Plan Patient presents to the ED for syncopal episode, fall down approximate 6 feet. Patient with historyof POTS, stating her fall was secondary to a POTS episode. Patient with longstanding history of POTS, malingering, factitious disorder, ED care plan in place. She notes that she has not been able to have any oral intake in over a month, and currently being assessed for G tube. ECG with NSR, inverted T wave of V2, no other ST changes or arrhythmia compared to previous. On exam, patient tearful, in distress, tender midline lumbar spine w/o step off, normal gluteal squeeze, decreased sensation to light touch over left lower extremity, small movements of lower extremities oncommand, however decreased strength throughout. Improved with encouragement. POCUS with good lung sliding on the right, inability to see the left due to positioning. No free fluid seen in the right upper quadrant or suprapubic region. No pericardial effusion. Limited by patient positioning on leftside due to pain. No significant electrolyte abnormalities or evidence of dehydration on labs. Luz quinn has an ED care plan, thus limited pain medications to only necessary. Patient was unable to tolerate CT lumbar spine, due to inability to lay flat from severe pain. Thusshe was given Dilaudid 2 mg p.o., Tylenol, Robaxin, lidocaine patch. XR right knee negative for acute pathology. Patient again stated she couldn't tolerate laying flat for CT, thus repeat pain medications and CT timing had to be planned. Patient care was signed out to oncoming physician to follow up on CT lumbar spine, CT head. Patient remained stable during her time under my care. I have reviewed the nursing notes. I have reviewed the findings, diagnosis, plan and need for follow up with the patient. Discharge Medication List as of 07/08/2024 12:52 AM Final diagnoses: Fall, initial encounter Numbness Leg weakness, bilateral [facility] 07/07/2024 Kamryn Moreau DO 07/08/24 1738 * Cecy San MD - 07/07/2024 7:22 AM CDT Emergency Department Patient Sign-out Brief HPI: This is a 38 year old female signed out to me by Dr. Peralta . See initial ED Provider note for details of the presentation. Significant Events prior to my assuming care: Patient fell down stairs and is here from trauma eval. Dr. Peralta ordered RUQ US for eval elevated LFTs. He also added on a CXR and MRI of Lumbar spine w/ and w/o contrast. CT L spine normal but patient reported new onset numbness and weakness in legs since being in ED. Per Dr. Peralta patient had abnormal examination. He consulted Neurosurgery and spoke with Trauma. Exam: Patient Vitals for the past 24 hrs: BP Temp Temp src Pulse Resp SpO2 07/07/242010 (!) 146/88 97.9 ??F (36.6 ??C) Oral 111 16 99 % 07/07/24 1845 (!) 148/89 -- -- -- 18 100 % 07/07/24 0728 104/78 97.8 ??F (36.6 ??C) Oral 115 16 100 % ED RESULTS: Results for orders placed or performed during the hospital encounter of 07/07/24 (from the past 24 hour(s)) XR Knee Port Right G/E 4 Views Status: None Collection Time: 07/07/24 8:41 AM Narrative 2 views right knee radiographs 07/07/2024 8:52 [...] aspect of mid leg and distal thigh. Impression Impression: 1. No acute osseous abnormality. 2. No substantial degenerative change. [facility] CBC with platelets differential Status: Abnormal Collection Time: 07/07/24 9:17 AM Narrative The following orders were created for panel order CBC with platelets differential. Procedure Abnormality Status --------- ------ CBC with platelets and d...[[id number]] Abnormal Final result Please view results for these tests on the individual orders. Comprehensive metabolic panel Status: Abnormal Collection Time: 07/07/24 9:17 AM Result Value Ref Range Sodium 136 135 - 145 mmol/L Potassium 5.0 3.4 - 5.3 mmol/L Carbon Dioxide (CO2) 20 (L) 22 - 29 mmol/L Anion Gap 14 7 - 15 mmol/L Urea Nitrogen 21.5 (H) 6.0 - 20.0 mg/dL Creatinine 0.60 0.51 - 0.95 mg/dL GFR Estimate >90 >60 mL/min/1.73m2 Calcium 9.1 8.8 - 10.4 mg/dL Chloride 102 98 - 107 mmol/L Glucose 107 (H) 70 - 99 mg/dL Alkaline Phosphatase 227 (H) 40 - 150 U/L AST 124 (H) 0 - 45 U/L ALT 232 (H) 0 - 50 U/L Protein Total 8.1 6.4 - 8.3 g/dL Albumin 4.4 3.5 - 5.2 g/dL Bilirubin Total <0.2 <=1.2 mg/dL Lactic acid whole blood with 1x repeat in 2 hr when >2 Status: Normal Collection Time: 07/07/24 9:17 AM Result Value Ref Range Lactic Acid, Initial 1.2 0.7 - 2.0 mmol/L Magnesium Status: Normal Collection Time: 07/07/24 9:17 AM Result Value Ref Range Magnesium 2.2 1.7 - 2.3 mg/dL Phosphorus Status: Abnormal Collection Time: 07/07/24 9:17 AM Result Value Ref Range Phosphorus 4.9 (H) 2.5 - 4.5 mg/dL CK total Status: Abnormal Collection Time: 07/07/24 9:17 AM Result Value Ref Range CK 24 (L) 26 - 192 U/L CBC with platelets and differential Status: Abnormal Collection Time: 07/07/24 9:17 AM Result Value Ref Range WBC Count 7.7 4.0 - 11.0 10e3/uL RBC Count 4.00 3.80 - 5.20 10e6/uL Hemoglobin 8.8 (L) 11.7 - 15.7 g/dL Hematocrit 29.9 (L) 35.0 - 47.0 % MCV 75 (L) 78 - 100 fL MCH 22.0 (L) 26.5 - 33.0 pg MCHC 29.4 (L) 31.5 - 36.5 g/dL RDW 19.6 (H) 10.0 - 15.0 % Platelet Count 508 (H) 150 - 450 10e3/uL % Neutrophils 62 % % Lymphocytes 27 % % Monocytes 8 % % Eosinophils 2 % % Basophils 1 % % Immature Granulocytes 0 % NRBCs per 100 WBC 0 <1 /100 Absolute Neutrophils 4.7 1.6 - 8.3 10e3/uL Absolute Lymphocytes 2.1 0.8 - 5.3 10e3/uL Absolute Monocytes 0.7 0.0 - 1.3 10e3/uL Absolute Eosinophils 0.2 0.0 - 0.7 10e3/uL Absolute Basophils 0.0 0.0 - 0.2 10e3/uL Absolute Immature Granulocytes 0.0 <=0.4 10e3/uL Absolute NRBCs 0.0 10e3/uL HCG quantitative Status: Normal Collection Time: 07/07/24 9:17 AM Result Value Ref Range hCG Quantitative <1 <5 mIU/mL EKG 12-lead, tracing only Status: None (Preliminary result) Collection Time: 07/07/24 9:20 AM Result Value Ref Range Systolic Blood Pressure mmHg Diastolic Blood Pressure mmHg Ventricular Rate 96 BPM Atrial Rate 96 BPM NC Interval 154 ms QRS Duration 66 ms QT 336 ms QTc 424 ms P [place] 56 degrees R AXIS 51 degrees T [place] 52 degrees Interpretation ECG Sinus rhythm Low voltage QRS Borderline ECG Head CT w/o contrast Status: None Collection Time: 07/07/24 4:24 PM Narrative EXAM: CT HEAD W/O CONTRAST 07/07/2024 4:24 PM HISTORY: syncopal episode down the stairs, anticoagulated COMPARISON: Head CT 06/27/2024. TECHNIQUE: Using multidetector thin collimation helical acquisition technique, axial, coronal and sagittal CT images from the skull base to the vertex were obtained without intravenous contrast. Radio Interference Expert (topogram) image(s) also obtained and reviewed. FINDINGS: No acute intracranial hemorrhage, mass effect, or midline shift. No acute loss of downing-white matter differentiation in the cerebral hemispheres. Ventricles are proportionate to the cerebral sulci. Clear basal cisterns. The bony calvaria and the bones of the skull base are normal. The visualized portions of the paranasal sinuses and mastoid air cells are clear. Grossly normal orbits. Multiple molar caries bilaterally. Impression IMPRESSION: No acute intracranial pathology. JESUS CAMPO MD CT Lumbar Spine w/o Contrast Status: None Collection Time: 07/07/24 4:25 PM Narrative EXAM: CT LUMBAR SPINE W/O CONTRAST 07/07/2024 [...] paraspinous tissues are grossly within normal limits. Impression IMPRESSION: 1. No acute fracture or traumatic subluxation. 2. Multilevel lumbar spondylosis, without high-grade spinal canal stenosis or neural foraminal narrowing. I have personally reviewed the examination and initial interpretation and I agree with the findings. PAUL JUÁREZ MD ED MEDICATIONS: Medications Lidocaine (LIDOCARE) 4 % Patch 1 patch (1 patch Transdermal Patch/Med Removed 07/07/24 1658) sodium chloride 0.9% BOLUS 1,000 mL (0 mLs Intravenous Stopped 07/07/24 1146) HYDROmorphone (DILAUDID) tablet 2 mg (2 mg Oral $Given 07/07/24 1054) acetaminophen (TYLENOL) tablet 1,000 mg (1,000 mg Oral Not Given 07/07/24 0939) methocarbamol (ROBAXIN) tablet 500 mg (500 mg Oral Not Given 07/07/24 0939) methocarbamol (ROBAXIN) tablet 500 mg (500 mg Oral Not Given 07/07/24 1354) HYDROmorphone (DILAUDID) tablet 2 mg (2 mg Oral $Given 07/07/24 1842) diphenhydrAMINE (BENADRYL) injection 50 mg (50 mg Intravenous Not Given 07/07/24 184) LORazepam (ATIVAN) tablet 1 mg (1 mg Oral $Given 07/07/242008) acetaminophen (TYLENOL) tablet 650 mg (650 mg Oral $Given 07/07/242008) oxyCODONE IR (ROXICODONE) tablet 10 mg (10 mg Oral $Given 07/07/242008) Impression: ICD-10-CM 1. Fall, initial encounter W19.XXXA 2. Numbness R20.0 3. Leg weakness, bilateral R29.898 Plan: Pending studies include MRI and NSG consult. Trauma called back and plan to await results of MRI. If no injury identified, will not require consult in ED but will follow for tertiary. Anticipate admit to medicine if MRI neg since patient has new numbness and weakness. Patient given oxycodone for pain and received ativan for MRI. Still unable to complete MRI. Patientreports pain intolerable while lying flat for MRI. In order to appropriately time analgesic effect with imaging study, I ordered a one time dose of IV dilaudid 0.5 mg. I subsequently noted patient had an ED care plan which stipulates patient should not receive IV benzos or opiates. Unfortunately, this was not passed on during course of patient's hand offs. Care Plan also states she should only get one dose of oral dilaudid. Patient requesting additional pain medication on return from MRI. However, she will not receive additional pain meds as I believe her current pain is consistent with chronic pain and factitious disorder. Provided reassurance after MRI revealed no acute abnormalities. Neurosurgery evaluated the patient and did not feel that her symptoms were related to a neurologic spinal cord issue or acute trauma. From their standpoint she was cleared for discharge without any specific follow-up. The patient continued to sob loudly and reported that she needed something for pain because she would not be able to reach her primary care doctor until the end of the weekend. She has no injuries that would warrant treatment with narcotic pain medications and I explained to her that she would not need to fill a prescription for narcotics since she has no fracture or other injury within indication for narcotics. We entered into a rather circular argument with the patient's requesting to speak with another provider because she felt she was being dismissed. The neurosurgery resident graciously came to reassure the patient again. Patient's care plan advises that she cannot be admitted to the hospital unless there are new abnormal objective findings. I also explained this with the patient and she said that hercare plan has not changed since she is no longer on outpatient narcotic pain medications. Again I explained to the patient that there is no indication for her to receive narcotic pain medications. She stated that she is unable to take Tylenol or ibuprofen and cannot take anything p.o. because she does not tolerate it and vomits. Advised her to research alternative pain management strategies such as massage, warm baths, meditation. The patient was discharged. MD Jaswinder James Jill C, MD 07/10/24 6118 documented in this encounter Plan of Treatment Upcoming Encounters Date Type Department Care Team (Late st Contact Info) Description 02/20/2025 10:20 AM CDT Appointment [facility] [address] [place] [address] Allyssa Justice MD [facility] [address] [facility] [address] [address] 02/27/2025 10:40 AM CDT Virtual Visit [facility] [address], [place] [address] [facility] [address] [place] [phone] Allyssa Justice MD [facility] [address] [place] [address] [place] [id number] documented as of this encounter Procedures Procedure Name Priority Date/Time Associated Diagnosis Comments MR LUMBAR SPINE W/O CONTRAST STAT 07/07/2024 10:46 PM CDT US ABDOMEN COMPLETE STAT 07/07/2024 9 [address] LUMBAR SPINE W/O CONTRAST STAT 07/07/2024 4:[address] HEAD W/O CONTRAST STAT 07/07/2024 4:24 PM CDT EKG 12-LEAD, TRACING ONLY STAT 07/07/2024 9:20 AM CDT LACTIC ACID WHOLE BLOOD WITH 1X REPEAT IN 2 HR WHEN >2 STAT 07/07/2024 9:17 AM CDT CBC WITH PLATELETS AND DIFFERENTIAL STAT 07/07/2024 9:17 AM CDT CBC WITH PLATELETS & DIFFERENTIAL STAT 07/07/2024 9:17 AM CDT PHOSPHORUS STAT 07/07/2024 9:17 AM CDT MAGNESIUM STAT 07/07/2024 9:17 AM CDT HCG QUANTITATIVE Add-On 07/07/2024 9:17 AM CDT COMPREHENSIVE METABOLIC PANEL STAT 07/07/2024 9:17 AM CDT CK TOTAL STAT 07/07/2024 9:17 AM CDT XR KNEE PORT RIGHT G/E 4 VIEWS STAT 07/07/2024 8:41 AM CDT POC US RESUSCITATION STAT 07/07/2024 7:39 AM CDT documented in this encounter Results * MR Lumbar Spine w/o Contrast (07/07/2024 [...] disease L5-S1. Narrative 07/07/2024 11:15 PM CDT [facility] MR LUMBAR SPINE W/O CONTRAST 07/07/2024 [...] Procedure Note Pratik Ruggiero MD - 07/07/2024 [facility] MR LUMBAR SPINE W/O CONTRAST 07/07/2024 [...] with the findings. EARLENE WINN MD us Judson Fabian DICKSON IMOzzy US ORDERABLES Final Result * CT Lumbar [...] interpretation and I agree with the findings. PAUL JUÁREZ MD Narrative 07/07/2024 6:19 PM CDT [...] are grossly within normal limits. Procedure Note Paul Juárez MD - 07/07/2024 EXAM: CT LUMBAR [...] interpretation and I agree with the findings. PAUL JUÁREZ MD Kamryn Moreau DO IMG CT ORDERABLES Final Result * Head CT w/o contrast (07/07/2024 4:24 PM CDT) Anatomical Region Laterality Modality Head, SUBRAD CT NEURO, SUBRA D CT NEURO, UMP CT NEURO, RAD CT Computed Tomography Impressions 07/07/2024 4:44 PM CDT IMPRESSION: No acute intracranial pathology. JESUS CAMPO MD Narrative 07/07/2024 4:44 PM CDT EXAM: CT HEAD W/O CONTRAST ??07/07/2024 4:24 PM HISTORY: ??syncopal episode down the stairs, anticoagulated ?? COMPARISON: ??Head CT 06/27/2024. TECHNIQUE: Using multidetector thin collimation helical acquisition technique, axial, coronal and sagittal CT images from the skull base to the vertex were obtained without intravenous contrast. Radio Interference Expert (topogram) image(s) also obtained and reviewed. FINDINGS: No acute intracranial hemorrhage, mass effect, or midline shift. No acute loss of downing-white matter differentiation in the cerebral hemispheres. Ventricles are proportionate to the cerebral sulci. Clear basal cisterns. The bony calvaria and the bones of the skull base are normal. The visualized portions of the paranasal sinuses and mastoid air cells are clear. Grossly normal orbits. Multiple molar caries bilaterally. Procedure Note Jesus Campo MD - 07/07/2024 EXAM: CT HEAD W/O CONTRAST 07/07/2024 4:24 PM HISTORY: syncopal episode down the stairs, anticoagulated COMPARISON: Head CT 06/27/2024. TECHNIQUE: Using multidetector thin collimation helical acquisition technique, axial, coronal and sagittal CT images from the skull base to the vertex were obtained without intravenous contrast. Radio Interference Expert (topogram) image(s) also obtained and reviewed. FINDINGS: No acute intracranial hemorrhage, mass effect, or midline shift. No acute loss of downing-white matter differentiation in the cerebral hemispheres. Ventricles are proportionate to the cerebral sulci. Clear basal cisterns. The bony calvaria and the bones of the skull base are normal. The visualized portions of the paranasal sinuses and mastoid air cells are clear. Grossly normal orbits. Multiple molar caries bilaterally. IMPRESSION: No acute intracranial pathology. JESUS CAMPO MD Kamryn Moreau DO IMG CT ORDERABLES Final Result * EKG 12-lead, tracing only (07/07/2024 9:20 AM CDT) Systolic Blood Pressure mmHg RADIOLOGY RESULTS Diastolic Blood Pressure mmHg RADIOLOGY RESULTS Ventricular Rate 96 BPM RAD IOLOGY RESULTS Atrial Rate 96 BPM RADIOLOG Y RESULTS NC Interval 154 ms RADIOLOG Y RESULTS QRS Duration 66 ms RADIOLO GY RESULTS QT 336 ms RADIOLOGY RESULTS QTc 424 ms RADIOLOGY RESULTS P [place] 56 degrees RADIOLOGY RESULTS R AXIS 51 degrees RADIOLOGY RESULTS T [place] 52 degrees RADIOLOGY RESULTS Interpretation ECG Sinus rhythm Low voltage QRS Borderline ECG Unconfirmed report - interpretation of this ECG is computer generated - see medical record for final interpretation Confirmed by - EMERGENCY ROOM, PHYSICIAN ([id number]), electronic news gathering editor KT MCBRIDE ([id number]) on 07/10/2024 12:44:47 PM RADIOLOGY RESULTS 07/07/2024 9:20 AM CDT 07/10/2024 12:44 PM CDT Kamryn Moreau DO ECG ORDERABLES Edited Result - Final RADIOLOGY RESULTS * HCG quantitative (07/07/2024 9:17 AM CDT) [...] BLOOD ORDERABLES Final Res ult [facility] [facility] [address] [facility], Room [address] [place] [id number] * (ABNORMAL) CBC with platelets and differential (07/07/2024 9:17 AM CDT) WBC Count 7.7 4.0 - 11.0 10e3/uL 07/07/2024 9:33 AM CDT [facility] RBC Count 4.00 3.80 - 5.20 10e6/uL 07/07/2024 9:33 AM CDT [facility] Hemoglobin 8.8(L) 11.7 - 15.7 g/dL 07/07/2024 9:33 AM CDT [facility] Hematocrit 29.9(L) 35.0 - 47.0 % 07/07/2024 9:33 AM CDT [facility] MCV 75(L) 78 - 100 fL 07/07/2024 9:33 AM CDT [facility] MCH 22.0(L) 26.5 - 33.0 pg 07/07/2024 9:33 AM CDT [facility] MCHC 29.4(L) 31.5 - 36.5 g/dL 07/07/2024 9:33 AM CDT [facility] RDW 19.6(H) 10.0 - 15.0 % 07/07/2024 9:33 AM CDT [facility] Platelet Count 508(H) 150 - 450 10e3/uL 07/07/2024 9:33 AM CDT [facility] % Neutrophils 62 % 07/07/2024 9:33 AM CDT [facility] % Lymphocytes 27 % 07/07/2024 9:33 AM CDT [facility] % Monocytes 8 % 07/07/2024 9:33 AM CDT [facility] % Eosinophils 2 % 07/07/2024 9:33 AM CDT [facility] % Basophils 1 % 07/07/2024 9:33 AM CDT [facility] % Immature Granulocytes 0 % 07/07/2024 9:33 AM CDT [facility] NRBCs per 100 WBC 0 <1 /100 024 9:33 AM CDT [facility] Absolute Neutrophils 4.7 1.6 - 8.3 10e3/uL 07/07/2024 9:33 AM CDT [facility] Absolute Lymphocytes 2.1 0.8 - 5.3 10e3/uL 07/07/2024 9:33 AM CDT [facility] Absolute Monocytes 0.7 0.0 - 1.3 10e3/uL 07/07/2024 9:33 AM CDT [facility] Absolute Eosinophils 0.2 0.0 - 0.7 10e3/uL 07/07/2024 9:33 AM CDT [facility] Absolute Basophils 0.0 0.0 - 0.2 10e3/uL 07/07/2024 9:33 AM CDT [facility] Absolute Immature Granulocytes 0.0 <=0.4 10e3/uL 07/07/2024 9:33 AM CDT [facility] Absolute NRBCs 0.0 10e3/uL 07/07/2024 9:33 AM CDT [facility] Blood BLOOD SPECIMEN / Unknown Venipuncture / Unknown 07/07/2024 9:17 AM CDT 07/07/2024 9:27 AM CDT Kamryn Moreau DO LAB - BLOOD ORDERABLES Final Res ult [facility] [place] [facility], [address] * (ABNORMAL) CK total (07/07/2024 9:17 AM CDT) CK 24(L) 26 - 192 U/L 07/07/2024 9:55 AM CDT [facility] Blood BLOOD SPECIMEN / Unknown Venipuncture / Unknown 07/07/2024 9:17 AM CDT 07/07/2024 9:25 AM CDT Kamryn Moreau DO LAB - BLOOD ORDERABLES Final Res ult Performing Organization Address City/[facility] de Phone Number [facility], [address] * (ABNORMAL) Phosphorus (07/07/2024 9:17 AM CDT) Phosphorus 4.9(H) 2.5 - 4.5 mg/dL 07/07/2024 9:55 AM CDT [facility] Blood BLOOD SPECIMEN / Unknown Venipuncture / Unknown 07/07/2024 9:17 AM CDT 07/07/2024 9:25 AM CDT Kamryn Moreau DO LAB - BLOOD ORDERABLES Final Res ult [facility] [place] [facility], [address] [phone] * Magnesium (07/07/2024 9:17 AM CDT) Pathologist [facility] Magnesium 2.2 1.7 - 2.3 mg/dL 07/07/2024 9:55 AM CDT [facility] Blood BLOOD SPECIMEN / Unknown Venipuncture / Unknown 07/07/2024 9:17 AM CDT 07/07/2024 9:25 AM CDT Kamryn Moreau DO LAB - BLOOD ORDERABLES Final Res ult LABORATORY [facility] Lab [facility], [address] [phone] * Lactic acid whole blood with 1x repeat in 2 hr when >2 (07/07/2024 9:17 AM CDT) Pathologist [facility] Lactic Acid, Initial 1.2 0.7 - 2.0 mmol/L 07/07/2024 9:27 AM CDT [facility] Blood BLOOD SPECIMEN / Unknown Venipuncture / Unknown 07/07/2024 9:17 AM CDT 07/07/2024 9:25 AM CDT Kamryn Moreau DO LAB - BLOOD ORDERABLES Final Res ult LABORATORY [facility] [place] [facility], [address] [phone] * (ABNORMAL) Comprehensive metabolic panel (07/07/2024 9:17 AM CDT) Pathologist [facility] Sodium 136 135 - 145 mmol/L 07/07/2024 9:55 AM CDT [facility] Potassium 5.0 3.4 - 5.3 mmol/L 07/07/2024 9:55 AM CDT [facility] Carbon Dioxide (CO2) 20(L) 22 - 29 mmol/L 07/07/2024 9:55 AM CDT [facility] Anion Gap 14 7 - 15 mmol/L 07/07/2024 9:55 AM CDT [facility] Urea Nitrogen 21.5(H) 6.0 - 20.0 mg/dL 07/07/2024 9:55 AM CDT [facility] Creatinine 0.60 0.51 - 0.95 mg/dL 07/07/2024 9:55 AM CDT [facility] GFR Estimate >90 >60 mL/min/1.7 3m2 07/07/2024 9:55 AM CDT [facility] Comment:eGFR calculated us2020 CKD-EPI equation. Calcium 9.1 8.8 - 10.4 mg/dL 07/07/2024 9:55 AM CDT [facility] Comment:Reference intervals for this test were updated on 06/13/2024 to reflect our healthy population more accurately. There may be differences in the flagging of prior results with similar values performed with this method. Those prior results can be interpreted in the context of the updated reference intervals. Chloride 102 98 - 107 mmol/L 07/07/2024 9:55 AM CDT [facility] Glucose 107(H) 70 - 99 mg/dL 07/07/2024 9:55 AM CDT [facility] Alkaline Phosphatase 227(H) 40 - 150 U/L 07/07/2024 9:55 AM CDT [facility] AST 124(H) 0 - 45 U/L 07/07/2024 9:55 AM CDT [facility] ALT 232(H) 0 - 50 U/L 07/07/2024 9:55 AM CDT [facility] Protein Total 8.1 6.4 - 8.3 g/dL 07/07/2024 9:55 AM CDT [facility] Albumin 4.4 3.5 - 5.2 g/dL 07/07/2024 9:55 AM CDT [facility] Bilirubin Total <0.2 <=1.2 mg/dL 07/07/2024 9:55 AM CDT [facility] Blood BLOOD SPECIMEN / Unknown Venipuncture / Unknown 07/07/2024 9:17 AM CDT 07/07/2024 9:25 AM CDT us Kamryn Moreau DO LAB - BLOOD ORDERABLES Final Res ult [facility] [place] [facility], [address] [place] [phone] * XR Knee Port Right G/E 4 [...] 2. No substantial degenerative change. [place] PATRICIO Kamryn Moreau DO IMG DIAGNOSTIC IMAGING ORDERABLE S Final Result * [...] fluid within the pericardium. Kamryn Moreau DO Ozzy POCUS Final Result documented in this encounter Visit Diagnoses Diagnosis Fall, initial encounter Numbness Disturbance of skin sensation Leg weakness, bilateral Other musculoskeletal symptoms referable to limbs documented in this encounter Administered Medications Inactive Administered Medications - up to 3 most recent administrations Medication Order MAR Action Action Date Dose Rate Site acetaminophen (TYLENOL) tablet 650 mg 650 mg, Oral, ONCE, On Wed07/07/24 at 2010, For 1 dose, Maximum acetaminophen dose from all sources = 75 mg/kg/day not to exceed 4 grams/day. $Given 07/07/2024 8:09 PM CDT 650 mg HYDROmorphone (DILAUDID) tablet 2 mg 2 mg, Oral, EVERY 3 HOURS PRN, moderate pain, severe pain, Starting on Wed07/07/24 at 0804, For 2 doses $Given 07/07/2024 10:54 AM CDT 2 mg $Given 07/07/2024 8:18 AM CDT 2 mg HYDROmorphone (DILAUDID) tablet 2 mg 2 mg, Oral, EVERY 3 HOURS PRN, severe pain, Starting on Wed07/07/24 at 1453, For 2 doses $Given 07/07/2024 6:42 PM CDT 2 mg $Given 07/07/2024 3:16 PM CDT 2 mg HYDROmorphone (PF) (DILAUDID) injection 0.5 mg 0.5 mg, Intravenous, ONCE PRN, moderate pain, severe pain, Starting on Wed07/07/24 at 2153, For 1 dose, Notify the provider to assess for uncontrolled pain or analgesic side effects. Hold while on IV COMMISSIONED SECURITY OFFICER or with regular IV opioid dosing. $Given 07/07/2024 9:58 PM CDT 0.5 mg Lidocaine (LIDOCARE) 4 % Patch 1 patch 1 patch, Transdermal, Administer over 12 Hours, ONCE, On Wed07/07/24 at 1355, For 1 dose, Apply patch(s) to lumbar spine. To prevent lidocaine toxicity, patient should be [...] for 96 hours post injection. $Patch/Med Applied 07/07/2024 1:53 PM CDT 1 patch Other (see comments) LORazepam (ATIVAN) tablet 1 mg 1 mg, Oral, ONCE, On Wed07/07/24 at 1955, For 1 dose $Given 07/07/2024 8:09 PM CDT 1 mg oxyCODONE IR (ROXICODONE) tablet 10 mg 10 mg, Oral, ONCE, On Wed07/07/24 at 2010, For 1 dose $Given 07/07/2024 8:09 PM CDT 10 mg sodium chloride 0.9% BOLUS 1,000 mL Intravenous, 1,000 mL, ONCE, at 1,000 mL/hr, Administer over 1 Hours, On Wed07/07/24 at 0805, For 1 dose $New Bag 07/07/2024 9:39 AM CDT 1,000 mLs 1000 mL/hr documented in this encounter Active and Recently Administered Medications Times are shown in CDT. Scheduled Medication Order 07/06/2024 07/07/2024 07/08/2024 acetaminophen (TYLENOL) tablet 650 mg (COMPLETED) 650 mg, Oral, ONCE, On Wed07/07/24 at 2009, For 1 dose, Maximum acetaminophen dose from all sources = 75 mg/kg/day not to exceed 4 grams/day. 2008 ($Given - Provider: Rex Gottlieb RN) Lidocaine (LIDOCARE) 4 % Patch 1 patch (COMPLETED) 1 patch, Transdermal, Administer over 12 Hours, ONCE, On Wed07/07/24 at 1355, For 1 dose, Apply patch(s) to lumbar spine. To prevent lidocaine toxicity, patient should be patch free for 12 hrs daily. Patches may be cut to smaller size prior to removing release liner. Reminder: Remove previous patch before applying new patch. NEVER APPLY HEAT OVER PATCH which increases absorption and may lead to local anesthetic toxicity. Do not apply over area where liposomal bupivacaine was injected for 96 hours post injection. 1353 ($Patch/Med Applied - Provider: Casper Metz RN - Comment: lower back)1658 (Patch/Med Removed - Provider: Giovani Jerome RN - Comment: removed by pt) 0153 (Due: Patch/Med Removed - Provider: Casper Metz RN) LORazepam (ATIVAN) tablet 1 mg (COMPLETED) 1 mg, Oral, ONCE, On Wed07/07/24 at 1955, For 1 dose 2008 ($Given - Provider: Rex Gottlieb RN) oxyCODONE IR (ROXICODONE) tablet 10 mg (COMPLETED) 10 mg, Oral, ONCE, On Wed07/07/24 at 2009, For 1 dose 2008 ($Given - Provider: Rex Gottlieb RN) sodium chloride 0.9% BOLUS 1,000 mL (COMPLETED) Intravenous, 1,000 mL, ONCE, at 1,000 mL/hr, Administer over 1 Hours, On Wed07/07/24 at 0805, For 1 dose 0939 ($New Bag - Provider: Solo Barriga RN)1146 (Stopped - Provider: Casper Metz RN) PRN Medication Order 07/06/2024 07/07/2024 07/08/2024 HYDROmorphone (DILAUDID) tablet 2 mg (COMPLETED) 2 mg, Oral, EVERY 3 HOURS PRN, moderate pain, severe pain, Starting on Wed07/07/24 at 0804, For 2 doses 0818 ($Given - Provider: Warren Barriga RN)1054 ($Given - Provider: Solo Barriga RN) HYDROmorphone (DILAUDID) tablet 2 mg (COMPLETED) 2 mg, Oral, EVERY 3 HOURS PRN, severe pain, Starting on Wed07/07/24 at 1453, For 2 doses 1516 ($Given - Provider: Giovani Jerome, DONNA)1842 ($Given - Provider: Concepción Parry, DONNA) HYDROmorphone (PF) (DILAUDID) injection 0.5 mg (COMPLETED) 0.5 mg, Intravenous, ONCE PRN, moderate pain, severe pain, Starting on Wed07/07/24 at 2153, For 1 dose, Notify the provider to assess for uncontrolled pain or analgesic side effects. Hold while on IV COMMISSIONED SECURITY OFFICER or with regular IV opioid dosing. 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 Assessment Noted Time PHQ-9 Depression Total Score: 4 02/21/20 24 1:54 PM CDT documented as of this encounter Care Teams Manager Validation Relationship Specialty Start [place] [address] [address] [address] PCP - General Family Medicine 04/22/23 [place] [address] [address] [address] Assigned Pain Medication Provider 12/07/22 [place] [address] [address] [address] Assigned PCP 01/23/23 [place] [address] [address] [place] [address] Assigned Musculoskeletal Provider 01/23/23 09/19/24 Gregorio Dalton PA-C [address] [place] [address] Assigned Surgical Provider 05/22/23 07/20/24 Kingsley Garcia MD [address] [place] [address] Assigned Heart and Vascular Provider 08/07/23 [place] [address] [place] [address] Family Medicine 09/10/23 Master Shea PA-C [address] [place] [address] Physician Collator Gastroenterology 09/10/23 Allyssa Justice MD [facility] [address] [place] [address] [place] [address] Hematology & Oncology 12/10/23 Genaro Christian MD [address] [place] [address] Cardiovascular Disease 12/22/23 Master Shea PA-C [address] [place] [address] Assigned Gastroenterology Provider 12/23/23 Sienna Guillermo DO [address] [place] [address] Physician Cardiovascular Disease 01/18/24 Allyssa Justice MD [facility] [address] [place] [address] [place] [address] Assigned Cancer Care Provider 03/21/24 documented as of this encounter
--- OUTSIDE RECORDS SUMMARY | 2024-09-21 22:42 | XMS_ITS | Encounter Summary ---
Author Organization [facility] Address [address] [place] [address] Care Team Providers Care Cannery Worker Name Role Phone Segundo Mcclelland MD Unavailable [phone] Segundo Mcclelland MD Unavailable [phone] Qamar Jackson MD Unavailable Segundo Mcclelland MD Primary Care Provider + Gregorio Dalton PA-C Unavailable [phone] Kingsley Garcia MD Unavailable + [phone] Segundo Mcclelland MD Unavailable [phone] Master Shea PA-C Unavailable Allyssa Justice MD Unavailable [phone] Genaro Christian MD Unavailable + [phone] Master Shea PA-C Unavailable Sienna Guillermo DO Unavailable [phone] Allyssa Justice MD Unavailable [phone] Encounter Details Date Type Department Care Team (Late st Contact Info) Description 06/29/[address] [address] [place] [address] [place] [address] Social History Tobacco Use Types Packs/Day Years [...] AM CDT 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 Dr. Leavitt will call Dr. Mcclelland later today. He is in surgery this morning. She recommends having Dr. Mcclelland putting in an urgent referral to the [facility] surgery. Then at least she can get something scheduled. She said Dr. Leavitt will not be putting in the j tube. He would be the only one there that would put it in. Gave Dr. Mcclelland's phone number. She will have Dr. Leavitt call before 12:00. Asked her if she wanted me to advise Dr. Mcclelland of above. She said that was ok - they can talk. She said likely he will not do the surgery, but they can talk and see if anything changes. * Telephone Encounter - Sienna Wilder RN - 06/29/2024 8:19 AM CDT Pt calls. She said she just passed out - she said she fell down a flight of steps. She fell down 7-8 steps. At the moment, everything hurts. She is not sure if she hit her head. Her kids said there were 2 booms and she was at the bottom of the steps. She had to take laundry downstairs. Things just went blackon the sides of her eyes. She is not sure when she is going to have surgery. The pt said surgery said a G/J tube would be better and safer and IR does that.. IR says they have talked to Dr. Alvares from and he wants it to be a direct J Tube. Surgery does that. She called surgery this morning and left them a message. Talked to Dr. Mcclelland about this as well as jatin from 06/28/24. He advised calling surgery and having them consult with Dr. Alvares from . Called [facility] at [phone]. Spoke to Dominga. Advised of above. She said the nurse is helping room a pt. The doctor is not in until 1:00 today. She is going to have the nurse Ashly call us back. documented in this encounter Plan of Treatment Upcoming Encounters Date Type Department Care Team (Late st Contact Info) Description 02/20/2025 10:20 AM CDT Appointment [facility] [address] [place] [address] [place] [address] Allyssa Justice MD [facility] [address] [place] [address] [place] [address] 02/27/2025 10:40 AM CDT Virtual Visit [facility] [address], [place] [address] [facility] [place] [phone] Allyssa Justice MD [facility] [address] [place] [address] [place] [address] documented as of this encounter Visit Diagnoses Not on file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 Assessment Noted Time PHQ-9 Depression Total Score: 4 02/21/20 24 1:54 PM CDT documented as of this encounter Care Teams Cannery Worker Relationship Specialty Start [place] [address] [address] [address] PCP - General Family Medicine 04/22/23 [place] [address] [address] [address] Assigned Pain Medication Provider 12/07/22 [place] [address] [address] [address] Assigned PCP 01/23/23 [place] [address] [place] [address] Assigned Musculoskeletal Provider 01/23/23 09/19/24 Gregorio Dalton PA-C [address] [address] Assigned Surgical Provider 05/22/23 07/20/24 Kingsley Garcia MD [address] [place] [address] Assigned Heart and Vascular Provider 08/07/23 [place] [address] [place] [address] Family Medicine 09/10/23 Master Shea PA-C [address] [place] [address] Physician Wide Piece Goods Inspector Gastroenterology 09/10/23 Allyssa Justice MD [facility] [address] [address] Hematology & Oncology 12/10/23 Genaro Christian MD [address] [place] [id number] Cardiovascular Disease 12/22/23 Master Shea PA-C [address] [place] [address] Assigned Gastroenterology Provider 12/23/23 Sienna Guillermo DO [address] [place] [address] Physician Cardiovascular Disease 01/18/24 Allyssa Justice MD [facility] [address] [address] [place] [address] Assigned Cancer Care Provider 03/21/24 documented as of this encounter
--- OUTSIDE RECORDS SUMMARY | 2024-09-21 22:42 | XMS_ITS | Encounter Summary ---
Author Organization [facility] Address [address] [place] [address] Care Team Providers Care Doughnut Glazier Name Role Phone Segundo Mcclelland MD Unavailable [phone] Segundo Mcclelland MD Unavailable [phone] Qamar Jackson MD Unavailable Segundo Mcclelland MD Primary Care Provider + Gregorio Dalton PA-C Unavailable [phone] Kingsley Garcia MD Unavailable + [phone] Segundo Mcclelland MD Unavailable [phone] Master Shea PA-C Unavailable Allyssa Justice MD Unavailable [phone] Genaro Christian MD Unavailable + [phone] Master Shea PA-C Unavailable Sienna Guillermo DO Unavailable [phone] Allyssa Justice MD Unavailable [phone] Encounter Details Date Type Department Care Team (Late st Contact Info) Description 07/05/[address] [address] [place] [address] [place] [address] Social History Tobacco Use Types Packs/Day Years [...] AM CDT 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 Gender Identity Female 05/26/2021 10:37 AM CDT Sexual Orientation Straight 05/26/2021 10 :37 AM CDT Occupation Industry Job Start Date Job End Date unemployed Not on file Not on file Not on file Not on file Not on file Not on file Not on file documented as of this encounter Plan of Treatment Upcoming Encounters Date Type Department Care Team (Christa Contact Info) Description 02/20/2025 10:20 AM CDT Appointment [facility] [address] [place] [address] [place] [phone] Allyssa Justice MD [facility] [address] [place] [address] 02/27/2025 10:40 AM CDT Virtual Visit [facility] [place] [address], [place] [address] [facility] Medical [facility] [place] [phone] Allyssa Justice MD [facility] [address] [place] [address] [place] [address] documented as of this encounter Visit Diagnoses Not on file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 Assessment Noted Time PHQ-9 Depression Total Score: 4 02/21/20 24 1:54 PM CDT documented as of this encounter Care Teams Doughnut Glazier Relationship Specialty Start [place] [address] [address] [address] PCP - General Family Medicine 04/22/23 [place] [address] [address] [address] Assigned Pain Medication Provider 12/07/22 [place] [address] [address] [address] Assigned PCP 01/23/23 [place] [address] [facility] [address] [place] [address] Assigned Musculoskeletal Provider 01/23/23 09/19/24 Gregorio Dalton PA-C [address] [place] [address] Assigned Surgical Provider 05/22/23 07/20/24 Kingsley Garcia MD [address] [place] [address] Assigned Heart and Vascular Provider 08/07/23 [place] [address] [place] [address] Family Medicine 09/10/23 Master Shea PA-C [address] [place] [address] Physician Director Of Payroll Gastroenterology 09/10/23 Allyssa Justice MD [facility] [address] [place] [address] [place] [address] Hematology & Oncology 12/10/23 Genaro Christian MD [address] [place] [address] Cardiovascular Disease 12/22/23 Master Shea PA-C [address] [place] [place] [address] Assigned Gastroenterology Provider 12/23/23 Sienna Guillermo DO [address] [place] [address] Physician Cardiovascular Disease 01/18/24 Allyssa Justice MD [facility] [address] [place] [address] Assigned Cancer Care Provider 03/21/24 documented as of this encounter
--- OUTSIDE RECORDS SUMMARY | 2024-09-21 22:42 | XMS_ITS | Encounter Summary ---
Author Organization [facility] Address [address] [place] [address] Care Team Providers Care Toilet Products Molder Name Role Phone Segundo Mcclelland MD Unavailable [phone] Segundo Mcclelland MD Unavailable [phone] Qamar Jackson MD Unavailable Segundo Mcclelland MD Primary Care Provider + Gregorio Dalton PA-C Unavailable [phone] Kingsley Garcia MD Unavailable + [phone] Segundo Mcclelland MD Unavailable [phone] Master Shea PA-C Unavailable Allyssa Justice MD Unavailable [phone] Genaro Christian MD Unavailable + [phone] Master Shea PA-C Unavailable Sienna Guillermo DO Unavailable [phone] Allyssa Justice MD Unavailable [phone] Encounter Details Date Type Department Care Team (Latest Contact Info) Description 07/05/2024 Travel Social History Tobacco Use Types Packs/Day [...] in an abandoned building, in an overnight skilled nursing, or couch-surfing.) Yes 08/26/2023 Are you worried [...] AM CDT 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 Gender Identity Female 05/26/2021 10:37 AM CDT [...] Info) Description 02/20/2025 10:20 AM CDT Appointment [facility] [address] [facility] [address] [place] [address] Allyssa Justice MD [facility] [address] [place] [address] [place] [address] 02/27/2025 10:40 AM CDT Virtual Visit [facility] [address] [place] [address] [facility] Medical Ctr [place] [phone] Allyssa Justice MD [facility] [address] [place] [address] [place] [address] documented as of this encounter Visit Diagnoses Not on file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 Assessment Noted Time PHQ-9 Depression Total Score: 4 02/21/20 24 1:54 PM CDT documented as of this encounter Care Teams Toilet Products Molder Relationship Specialty Start [place] [address] [address] [address] PCP - General Family Medicine 04/22/23 [place] [address] [address] [address] Assigned Pain Medication Provider 12/07/22 [place] [address] [address] [address] Assigned PCP 01/23/23 [place] [address] [place] [address] Assigned Musculoskeletal Provider 01/23/23 09/19/24 Gregorio Dalton PA-C [address] [place] [address] [address] Assigned Surgical Provider 05/22/23 07/20/24 Kingsley Garcia MD [address] [place] [address] Assigned Heart and Vascular Provider 08/07/23 [place] [address] [place] [address] Family Medicine 09/10/23 Master Shea PA-C [address] [place] [address] Physician Liquor Blender Gastroenterology 09/10/23 Allyssa Justice MD [facility] [address] [place] [address] [place] [address] Hematology & Oncology 12/10/23 Genaro Christian MD [address] [place] [address] Cardiovascular Disease 12/22/23 Master Shea PA-C [address] [place] [address] Assigned Gastroenterology Provider 12/23/23 Sienna Guillermo DO [address] [place] [address] Physician Cardiovascular Disease 01/18/24 Allyssa Justice MD [facility] [address] [place] [address] [place] [address] Assigned Cancer Care Provider 03/21/24 documented as of this encounter
--- OUTSIDE RECORDS SUMMARY | 2024-09-21 22:42 | XMS_ITS | Encounter Summary ---
Author Organization [facility] Address [address] [place] [address] Care Team Providers Care Overhauler Name Role Phone Segundo Mcclelland MD Unavailable [phone] Segundo Mcclelland MD Unavailable [phone] Qamar Jackson MD Unavailable Segundo Mcclelland MD Primary Care Provider + Gregorio Dalton PA-C Unavailable [phone] Kingsley Garcia MD Unavailable + [phone] Segundo Mcclelland MD Unavailable [phone] Master Shea PA-C Unavailable Allyssa Justice MD Unavailable [phone] Genaro Christian MD Unavailable [phone] Master Shea PA-C Unavailable Sienna Guillermo DO Unavailable [phone] Allyssa Justice MD Unavailable [phone] Encounter Details Date Type Department Care Team (Late st Contact Info) Description 06/28/2024 Telephone [facility] Interventional Radiology [address] [facility] [address] 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 IR referral for a surgical J tube placement. Patient was seen by Surgeon Dr Leavitt who put in an IR referral for a GJ tube. Sandi is a complicated and difficult patient who has a history of borderline personality disorder, chronic factitious disorder, anxiety/depression, migraines, pulmonary embolism, chronic pain, gastroparesis. Reviewed with IR Dr Garrett. Sandi has had multiple CVC access with PICCs and Ports with a variety of infections and failures. She requires general anesthesia for procedures. Dr Garrett finally said no more IV access because of numerous infections, concerns with misusing ports to inject her pain medications,and hematemesis, with normal GI endos with concerns she was bleeding or pulling blood out of the CVC and swallowing it throw up and to mimic blood loss. Hemoglobin has normalized since PICC/ports removed. Protein and albumin levels are normal, eats well when observed, but she claims she has gastroparesis though gastric emptying study has never been done. She refuses oral Benadryl buttakes other oral pills. She was discussed at length with IR, GI Dr Alvares and PCP who felt the safest option was a J tube. IR will not place a GJ tube with the h/o potential J tube coiling in the stomach from either vomiting or dry heaving because of the gastric access. Again refer to surgery for a J tube placement. Thanks, Flory [facility] Interventional Radiology REGISTERED TRAVEL NURSE ([phone]) (phone [phone]) documented in this encounter Plan of Treatment Upcoming Encounters Date Type Department Care Team (Late st Contact Info) Description 02/20/2025 10:20 AM CDT Appointment [facility] Imaging [address] [facility] [address] [place] [address] Allyssa Justice MD [facility] [address] [place] [address] 02/27/2025 10:40 AM CDT Virtual Visit [facility] Richard [address], [address] [facility] Medical Ctr [facility] [place] [id number] Allyssa Justice MD [facility] [address] [place] [address] documented as of this encounter Visit Diagnoses Not on file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 Assessment Noted Time PHQ-9 Depression Total Score: 4 02/21/20 1:54 PM CDT documented as of this encounter Care Teams Overhauler Relationship Specialty Start [place] [address] [address] [address] PCP - General Family Medicine 04/22/23 [place] [address] [address] [address] Assigned Pain Medication Provider 12/07/22 [place] [address] [address] [address] Assigned PCP 01/23/23 [place] [address] [place] [address] Assigned Musculoskeletal Provider 01/23/23 09/19/24 Gregorio Dalton PA-C [address] [place] [address] Assigned Surgical Provider 05/22/23 07/20/24 Kingsley Garcia MD [address] [place] [address] Assigned Heart and Vascular Provider 08/07/23 [place] [address] [place] [address] Family Medicine 09/10/23 Master Shea PA-C [address] [facility] [place] [address] Physician Breastfeeding Educator Gastroenterology 09/10/23 Allyssa Justice MD [facility] [address] [place] [address] Hematology & Oncology 12/10/23 Genaro Christian MD [address] [place] [address] Cardiovascular Disease 12/22/23 Master Shea PA-C [address] [place] [address] Assigned Gastroenterology Provider 12/23/23 Sienna Guillermo DO [address] [place] [address] Physician Cardiovascular Disease 01/18/24 Allyssa Justice MD [facility] [address] [address] Assigned Cancer Care Provider 03/21/24 documented as of this encounter
--- OUTSIDE RECORDS SUMMARY | 2024-09-21 22:42 | XMS_ITS | Encounter Summary ---
Author Organization [facility] Address [address] [place] [address] Care Team Providers Care Executive Housekeeper Name Role Phone Segundo Mcclelland MD Unavailable [phone] Segundo Mcclelland MD Unavailable [phone] Qamar Jackson MD Unavailable Segundo Mcclelland MD Primary Care Provider + Gregorio Dalton PA-C Unavailable [phone] Kingsley Garcia MD Unavailable + [phone] Segundo Mcclelland MD Unavailable [phone] Master Shea PA-C Unavailable Allyssa Justice MD Unavailable [phone] Genaro Christian MD Unavailable [phone] Master Shea PA-C Unavailable Sienna Guillermo DO Unavailable [phone] Allyssa Justice MD Unavailable [phone] Reason for Visit * Reason Comments Syncope Back Pain Encounter Details Date Type Department Care Team (Late st Contact Info) Description 07/03/2024 6:00 AM CDT - 07/03/2024 7:30 AM CDT Emergency [facility] Emergency Dept [address] [place] [address] Bri Hope MD [facility] [address] [place] [id number] Fall, initial encounter; Hip pain, left; Acute [...] in an abandoned building, in an overnight long term, or couch-surfing.) Yes 08/26/2023 Are you worried [...] AM CDT 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 Gender Identity Female 05/26/2021 10:37 AM CDT Sexual Orientation Straight 05/26/2021 10 :37 AM CDT Occupation Industry Job Start Date Job End Date unemployed Not on file Not on file Not on file Not on file Not on file Not on file Not on file documented as of this encounter Last Filed Vital Signs Vital Sign Reading Time Taken Comments Blood Pressure 134/80 07/03/2024 5:59 AM CDT Pulse 108 07/03/2024 5:59 AM CDT Temperature 36.6 ??C (97.9 ??F) 07/03/2024 5:59 AM CD T Respiratory Rate 20 07/03/2024 5:59 AM CDT Oxygen Saturation 98% 07/03/2024 5:59 AM CDT Inhaled Oxygen Concentration - - Weight - - Height - - Body Mass Index - - documented in this encounter Discharge Instructions * Discharge Instructions* Bri Hope MD - 07/03/2024 7:14 AM CDT *You may resume diet and activities as tolerated. *No new medications. *Follow-up with your doctor for recheck soon as possible. *Return if you change her mind or become worse in any way. Discharge Instructions Back Pain You were seen [...] if there is anything that worries you. * Attachments The following attachments cannot be sent through Care Everywhere. * Musculoskeletal Pain (Citizen [place]) documented in this encounter Medications at Time [...] anxiety naloxone (NARCAN) 4 MG/0.1ML nasal spray [place] 4 mg into one nostril alternating nostrils once as needed for opioid reversal 06/28/2023 pantoprazole (PROTONIX) 40 MG EC tablet Take 40 mg by mouth daily sodium chloride 0.9% infusionIndication s:Gastroparesis Inject 1,000 mLs into the vein as needed for other (Wednesday with IV antibiotic) 60968 mL 06/02/2024 sucralfate (CARAFATE) 1 GM tabletIndications: [...] as of this encounter ED Notes * Seth Field RN - 07/03/2024 7:24 AM CDT Patient left against medical advice, signed AMA paperwork. Patient able to get out of bed and ambulate out of emergency room independently. * Michelle Martins RN - 07/03/2024 5:54 AM CDT [facility] ED Arrival Note Pt presents to ED via Uber c/o unwitnessed syncope episode this morning while going down the stairs. Pt states that she fell down 7 stairs injuring her lower back, left hip and left leg. She does notthink she hit her head. Pt currently not on blood thinners. Visitors during triage: None Triage Interventions: EKG Ambulatory: Yes Directed to: Main ED Pronouns: she/her * Bri Hope MD - 07/03/2024 5:51 AM CDT History Chief Complaint: Syncope and Back Pain HPI Sandi Lopez is a 38 year old female with history of DVT, PE, atrial flutter, and hypertension who presented to triage in the emergency department via car for concern of syncope, fall and pain. Patient reports that she had an unwitnessed syncopal episode at 0430 while going down the stairs. She complains of lower back pain, left hip, and left thigh or groin pain since the fall. Independent Historian: None Review of External Notes: Reviewed detailed emergency care plan for the patient. Patient has a longstanding opioid use disorder and IV opiates and diphenhydramine are to be avoided. Patient has a history of orthostatic hypotension/POTS and chronic PICC/vascular access. Is chronically tachycardic 100-1 20 and receives home in fusions of IV fluids. Has had multiple reassuring workups for syncope. I reviewed the emergency department visit to [place] on 07/01/2024 for recurrent syncope. Pulsewas 113. Hemoglobin was 8.7. She was discharged home with a diagnosis of recurrent syncope, anemia and contusion of the left shoulder. She refused radiology studies. IV access was difficult. I reviewed the emergency department visit to [place] emergency department on 06/29/2024. Patient was seen for syncope and reported falling down a flight of stairs. Hemoglobin was 8.9. Heart rate was 116. Imaging was negative. She was discharged home. I reviewed hospitalization discharge summary from 06/20/2024 at [facility]. Patient was discharged home with a diagnosis of recurrent syncope and complex psychological illness. She was concerned for syncope and reported a fall. CT of the cervical spine was negative. Chest x-ray was normal. X-rays of the shoulders were normal. She was admitted to the hospital and seen by GI and telepsychiatry. They declined to place a PEG as the patient's weight trajectory looked okay and the albumin was normal. She requested particular medications like IV Benadryl in particular doses of Dilaudid. Care management was working on a unit treatment plan. I reviewed CT chest pulmonary embolism on 06/09/2024. No pulmonary embolism. I counted 61 visits to the emergency department since November 29, 2023. Allergies: Chlorhexidine Droperidol Nsaids Sulfa Antibiotics Compazine [Prochlorperazine] Metoclopramide Olanzapine Phenergan [Promethazine] Phenothiazines Venofer [Iron Sucrose] Zofran [Ondansetron Hcl] Contrast Dye Hydroxyzine Medical History and Problem List Anemia Atrial flutter Borderline personality disorder Continuous opioid dependence Depression Dysthymic disorder GERD Gastroparesis Hypertension Kidney stone [place]-med[place] teat Asthma DVT Obesity Osteomyelitis of lumbar spine Postural orthostatic tachycardia syndrome PTSD Pulmonary embolism Psychogenic nonepileptic seizure Medications Eliquis Benadryl Epinephrine Diflucan Folvite Neurontin Ativan Narcan Protonix Carafate Ambien [place]aclofen Dilaudid Ambien Surgical History Adenoidectomy Appendectomy Arthroscopy of knee with lateral meniscectomy Back surgery Cautery of cervix, cryocautery Cerclage cervical Cholecystectomy Colonoscopy Colposcopy Endoscopic retrograde cholangiopancreatography EGD combined Hysterectomy Insert PICC line Laryngoscopy Oophorectomy Talar fracture foot surgery Tonsillectomy and adenoidectomy Transesophage Physical Exam Patient Vitals for the past 24 hrs: BP Temp Temp src Pulse Resp SpO2 07/03/24 0559 134/80 97.9 ??F (36.6 ??C) Oral 108 20 98 % Physical Exam General: Well-nourished, appears to be in pain Eyes: PERRL, conjunctivae pink no scleral icterus or conjunctival injection ENT: Moist mucus membranes, posterior oropharynx clear without erythema or exudates Respiratory: Lungs clear to auscultation bilaterally, no crackles/rubs/wheezes. Good air movement CV: Normal rate and rhythm, no murmurs/rubs/gallops GI: Abdomen soft and non-distended. Normoactive BS. No tenderness, guarding or rebound Skin: Warm, dry. No rashes or petechiae Musculoskeletal: Tender midline lumbar spine and left pelvis. No cervical or thoracic spinal tenderness. Neuro: Alert and oriented to person/place/time. PERRL, EOMI no nystagmus, no aphasia/facial droop/dysarthria, tongue midline, moving all extremities, sensation intact to LT over face/BUE/BLE Psychiatric: Flat affect Emergency Department Course ECG ECG taken at 0616, ECG read at 0623 Normal sinus rhythm Normal ECG No change as compared to prior, dated 06/28/24. Rate 99 bpm. IN interval 164 ms. QRS duration 72 ms. QT/QTc 332/426 ms. P-R-T axes 65 56 57. Laboratory: Imaging: Labs Ordered and Resulted from Time of ED Arrival to Time of ED Departure - No data to display No orders to display Emergency Department Course & Assessments: Interventions: Medications HYDROmorphone (DILAUDID) tablet 2 mg (2 mg Oral $Given 07/03/24 0700) Independent Interpretation None Assessments, Consults, Discussions of ManagementTests: ED Course as of 07/03/24 0739 WedJul 03, 2024 0646 I obtained history and examined the patient as noted above 0650 Requested to speak with the nurse. Requested Dilaudid 2 mg oral per her care plan. 0700 After receiving the oral Dilaudid, patient requested to leave since that she would not be receiving IV fluids. She l decided to leave AGAINST MEDICAL ADVICE. She ambulated out of the emergency department room herself. Social Determinants of Health affecting care: Stress/Adjustment Disorders Disposition: The patient left AMA. Impression & Plan Medical Decision Making: Sandi Lopez is a 38 year old female with a complex medical history who presents to the emergency department with report of syncope, fall and pain. She has many many visits for recurrent syncope as well as orthostatic hypotension/POTS, ED recidivism and PICC vascular access issues, chronic ga stroparesis, and a complex care plan in place regarding IV benzodiazepines, IV diphenhydramine, IV fluids and IV opioids. As a result of these issues, she has terrible parenteral IV access. Fortunately today her EKG is normal and her heart rate is 99 on her EKG. This is actually better than heart rates on previous visits to the emergency department when her hemoglobin level was at an acceptable range. I do not believe that she will require blood transfusion. She does not appear clinically dehydrated. Consistent with our care plan, IV fluids were not offered to her. Imaging of the places of pain was ordered. After patient received the oral Dilaudid per her care plan, [facility] and declined imaging. Fortunately, she was able to ambulate on her own accord and so my suspicion for fracture is low. She is welcome to return if she changes her mind and encouraged to follow-up with her own physician as soon as possible. Diagnosis: ICD-10-CM 1. Fall, initial encounter W19.XXXA 2. Hip pain, left M25.552 3. Acute midline low back pain, unspecified whether sciatica present M54.50 Discharge Medications: Discharge Medication List as of 07/03/2024 7:17 AM Scribe Disclosure: Rico Sanchez, am serving as a scribe at 6:40 AM on 07/03/2024 to document services personally performed by Bri Hope MD based on my observations and the provider's statements to me. 07/03/2024 Bri Hope MD Cho, Amy C, MD 07/03/24 0742 documented in this encounter Plan of Treatment Upcoming Encounters Date Type Department Care Team (Late st Contact Info) Description 02/20/2025 10:20 AM CDT Appointment [facility] Imaging [address] [facility] [address] [place] [address] Allyssa Justice MD [facility] [address] [place] [address] 02/27/2025 10:40 AM CDT Virtual Visit [facility] [address] [facility] Medical Ctr [place] [phone] Allyssa Justice MD [facility] [address] [place] [address] documented as of this encounter Procedures Procedure Name Priority Date/Time Associated Diagnosis Comments EKG 12-LEAD, TRACING ONLY STAT 07/03/2024 6:16 AM CDT documented in this encounter Results * EKG 12-lead, tracing only (07/03/2024 6:16 AM CDT) Systolic Blood Pressure mmHg RADIOLOGY RESULTS Diastolic Blood Pressure mmHg RADIOLOGY RESULTS Ventricular Rate 99 BPM RAD IOLOGY RESULTS Atrial Rate 99 BPM RADIOLOG Y RESULTS IN Interval 164 ms RADIOLOG Y RESULTS QRS Duration 72 ms RADIOLO GY RESULTS QT 332 ms RADIOLOGY RESULTS QTc 426 ms RADIOLOGY RESULTS P [place] 65 degrees RADIOLOGY RESULTS R AXIS 56 degrees RADIOLOGY RESULTS T [place] 57 degrees RADIOLOGY RESULTS Interpretation ECG Sinus rhythm Normal ECG When compared with ECG of 28-Jun-2024 12:32, No significant change was found Confirmed by GENERATED REPORT, COMPUTER ([id number]), supervising editor news reel Melissa Huber ([id number]) on 07/03/2024 6:43:53 AM RADIOLOGY RESULTS 07/03/2024 6:16 AM CDT 07/03/2024 6:43 AM CDT Melissa Chavez MD ECG ORDERABLES Edited Result - Final RADIOLOGY RESULTS documented in this encounter Visit Diagnoses Diagnosis Fall, initial encounter Hip pain, left Pain in joint, pelvic region and thigh Acute midline low back pain, unspecified whether sciatica present documented in this encounter Administered Medications Inactive Administered Medications - up to 3 most recent administrations Medication Order MAR Action Action Date Dose Rate Site HYDROmorphone (DILAUDID) tablet 2 mg 2 mg, Oral, EVERY 3 HOURS PRN, severe pain, Starting on Wed07/03/24 at 0653 $Given 07/03/2024 7:00 AM CDT 2 mg documented in this encounter Active and Recently Administered Medications Times are shown in CDT. PRN Medication Order 07/01/2024 07/02/2024 07/03/2024 HYDROmorphone (DILAUDID) tablet 2 mg 2 mg, Oral, EVERY 3 HOURS PRN, severe pain, Starting on Wed07/03/24 at 0653 0700 ($Given - Provi rosita: Love Alexis RN) 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 Assessment Noted Time PHQ-9 Depression Total Score: 4 02/21/20 1:54 PM CDT documented as of this encounter Care Teams Executive Housekeeper Relationship Specialty Start [place] [address] [address] [address] PCP - General Family Medicine 04/22/23 [place] [address] [address] [address] Assigned Pain Medication Provider 12/07/22 [place] [address] [address] [address] Assigned PCP 01/23/23 [place] [address] [place] [place] [address] Assigned Musculoskeletal Provider 01/23/23 09/19/24 Gregorio Dalton PA-C [address] [address] Assigned Surgical Provider 05/22/23 07/20/24 Kingsley Garcia MD [address] [place] [address] Assigned Heart and Vascular Provider 08/07/23 [place] [address] [place] [address] Family Medicine 09/10/23 Master Shea PA-C [address] [place] [address] Physician Insurance Agents Supervisor Gastroenterology 09/10/23 Allyssa Justice MD [facility] [address] [place] [address] Hematology & Oncology 12/10/23 Genaro Christian MD [address] [place] [address] Cardiovascular Disease 12/22/23 Master Shea PA-C [address] [place] [address] Assigned Gastroenterology Provider 12/23/23 Sienna Guillermo DO [address] [place] [address] Physician Cardiovascular Disease 01/18/24 Allyssa Justice MD [facility] [address] [place] [address] Assigned Cancer Care Provider 03/21/24 documented as of this encounter
--- OUTSIDE RECORDS SUMMARY | 2024-09-21 22:42 | XMS_ITS | Encounter Summary ---
Author Organization [facility] Address [address] [place] [address] Care Team Providers Care General Machinist Name Role Phone Segundo Mcclelland MD Unavailable [phone] Segundo Mcclelland MD Unavailable [phone] Qamar Jackson MD Unavailable Segundo Mcclelland MD Primary Care Provider + Gregorio Dalton PA-C Unavailable [phone] Kingsley Garcia MD Unavailable + [phone] Segundo Mcclelland MD Unavailable [phone] Master Shea PA-C Unavailable Allyssa Justice MD Unavailable [phone] Genaro Christian MD Unavailable [phone] Master Shea PA-C Unavailable Sienna Guillermo DO Unavailable [phone] Allyssa Justice MD Unavailable [phone] Declan Leavitt MD Unavailable Reason for Visit * Reason Onset Date Comments Call Back 06/29/2024 Encounter Details Date Type Department Care Team (Late st Contact Info) Description 06/29/2024 Telephone [facility] [address] [place] [phone] Declan Leavitt MD [address] [place] [address] [place] [address] Call Back Social History Tobacco Use Types Packs/Day Years [...] AM CDT 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 She has done all the prep work at home and IR is now telling her they will not do the procedure that Dr. Leavitt will have to do it. She got very upset and started crying asking why no one will help her.She would like a call back to try to figure out what is going on as she is sitting waiting and ready. [phone] Ok to leave VM documented in this encounter Plan of Treatment Upcoming Encounters Date Type Department Care Team (Late st Contact Info) Description 02/20/2025 10:20 AM CDT Appointment [facility] [address] [facility] [address] [place] [phone] Allyssa Justice MD [facility] [address] [place] [address] [place] [address] 02/27/2025 10:40 AM CDT Virtual Visit [facility] [place] [address] [place] [address] [facility] [place] [phone] Allyssa Justice MD [facility] [address] [place] [address] [place] [address] documented as of this encounter Visit Diagnoses Not on file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 Assessment Noted Time PHQ-9 Depression Total Score: 4 02/21/20 24 1:54 PM CDT documented as of this encounter Care Teams General Machinist Relationship Specialty Start [place] [address] [place] [address] PCP - General Family Medicine 04/22/23 [place] [address] [place] [place] [address] Assigned Pain Medication Provider 12/07/22 [place] [address] [place] [address] Assigned PCP 01/23/23 [place] [address] [place] [address] Assigned Musculoskeletal Provider 01/23/23 09/19/24 Gregorio Dalton PA-C [address] [place] [address] Assigned Surgical Provider 05/22/23 07/20/24 Kingslye Garcia MD [address] [place] [address] Assigned Heart and Vascular Provider 08/07/23 [place] [address] [address] [address] Family Medicine 09/10/23 Master Shea PA-C [address] [facility] [place] [address] Physician Relish Blender Gastroenterology 09/10/23 Allyssa Justice MD [facility] [address] [place] [address] [place] [address] Hematology & Oncology 12/10/23 Genaro Christian MD [address] [place] [address] Cardiovascular Disease 12/22/23 Master Shea PA-C [address] [place] [address] Assigned Gastroenterology Provider 12/23/23 Sienna Guillermo DO [address] [place] [address] Physician Cardiovascular Disease 01/18/24 Allyssa Justice MD [facility] [address] [place] [address] [place] [address] Assigned Cancer Care Provider 03/21/24 Declan Leavitt MD [address] [place] [address] [place] [address] Assigned Surgical Provider 07/21/24 documented as of this encounter
--- OUTSIDE RECORDS SUMMARY | 2024-09-21 22:42 | XMS_ITS | Encounter Summary ---
Author Organization [facility] Address [address] [place] [address] Care Team Providers Care Nitroglycerin Separator Operator Name Role Phone Segundo Mcclelland MD Unavailable [phone] Segundo Mcclelland MD Unavailable [phone] Qamar Jackson MD Unavailable Segundo Mcclelland MD Primary Care Provider + Gregorio Dalton PA-C Unavailable [phone] Kingsley Garcia MD Unavailable + [phone] Segundo Mcclelland MD Unavailable [phone] Master Shea PA-C Unavailable Allyssa Justice MD Unavailable [phone] Genaro Christian MD Unavailable + [phone] Master Shea PA-C Unavailable Sienna Guillermo DO Unavailable [phone] Allyssa Justice MD Unavailable [phone] Encounter Details Date Type Department Care Team (Latest Contact Info) Description 07/03/2024 Travel Social History Tobacco Use Types Packs/Day [...] AM CDT 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 [address] [place] [address] [place] [address] 02/27/2025 10:40 AM CDT Virtual Visit [facility] [address] [place] [address] [facility] Medical Ctr [place] [phone] 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 Assessment Noted Time PHQ-9 Depression Total Score: 4 02/21/20 24 1:54 PM CDT documented as of this encounter Care Teams Nitroglycerin Separator Operator Relationship Specialty Start [place] [address] [place] [address] PCP - General Family Medicine 04/22/23 [place] [address] [address] [place] [address] Assigned Pain Medication Provider 12/07/22 [place] [address] [address] [place] [address] Assigned PCP 01/23/23 [place] [address] [address] [place] [address] Assigned Musculoskeletal Provider 01/23/23 09/19/24 Gregorio Dalton PA-C [address] [place] [address] [address] Assigned Surgical Provider 05/22/23 07/20/24 Kingsley Garcia MD [address] [place] [address] Assigned Heart and Vascular Provider 08/07/23 [place] [address] [place] [address] Family Medicine 09/10/23 Master Shea PA-C [address] [place] [address] Physician End Trimmer Gastroenterology 09/10/[address] [facility] [address] [place] [address] [place] [address] Hematology & Oncology 12/10/23 Genaro Christian MD [address] [place] [address] Cardiovascular Disease 12/22/23 Master Shea PA-C [address] [place] [address] Assigned Gastroenterology Provider 12/23/23 Sienna Guillermo DO [address] [place] [address] Physician Cardiovascular Disease 01/18/[address] [facility] [address] [place] [address] [place] [address] Assigned Cancer Care Provider 03/21/24 documented as of this encounter
--- OUTSIDE RECORDS SUMMARY | 2024-09-21 22:42 | XMS_ITS | Encounter Summary ---
Author Organization [facility] Address [address] [place] [address]. [place] [address] Care Team Providers Care Battalion Chief Name Role Phone Segundo Mcclelland MD Unavailable [phone] Segundo Mcclelland MD Unavailable [phone] Qamar Jackson MD Unavailable Segundo Mcclelland MD Primary Care Provider + Gregorio Dalton PA-C Unavailable [phone] Kingsley Garcia MD Unavailable + [phone] Segundo Mcclelland MD Unavailable [phone] Master Shea PA-C Unavailable Allyssa Justice MD Unavailable [phone] Genaro Christian MD Unavailable + [phone] Master Shea PA-C Unavailable Sienna Guillermo DO Unavailable [phone] Allyssa Justice MD Unavailable [phone] Reason for Visit * Reason Onset Date Comments Call Back 06/29/2024 Encounter Details Date Type Department Care Team (Late st Contact Info) Description 06/29/2024 Telephone [facility] [place] [address] [place] [phone] Declan Leavitt MD [address] [facility] [address] [place] [address] Call Back Social History Tobacco Use Types [...] in an abandoned building, in an overnight long-term, or couch-surfing.) Yes 08/26/2023 Are you worried [...] AM CDT 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 Leavitt will not place a J Tube. He will happily discuss this personally with Dr. Mcclelland. Emily provided Dr. Mares' phone number. Will page Dr. Leavitt to call Dr. Stas Donnelly RN-BSN * Telephone Encounter - Dominga Bingham - 06/29/2024 8:42 AM CDT Emily-RN with PCP-Dr. Segundo Mcclelland at [facility] calling to speak with Dr. Leavitt or his nurse regarding the situation with placing a J tube for Lindsay. Diaz is in the office for a half day today, she can be reached at: [phone] Or main office #: [phone]. documented in this encounter Plan of Treatment Upcoming Encounters Date Type Department Care Team (Late st Contact Info) Description 02/20/2025 10:20 AM CDT Appointment [facility] [place] [facility] [address] [facility] [address] [place] [phone] Allyssa Justice MD [facility] [address] [address] [place] [address] 02/27/2025 10:40 AM CDT Virtual Visit [facility] [address] [place] [address] [facility] [place] [phone] Allyssa Justice MD [facility] [address] [place] [address] documented as of this encounter Visit Diagnoses Not on file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 Assessment Noted Time PHQ-9 Depression Total Score: 4 02/21/20 24 1:54 PM CDT documented as of this encounter Care Teams Battalion Chief Relationship Specialty Start [place] [address] [place] [address] PCP - General Family Medicine 04/22/23 [place] [address] [address] [place] [address] Assigned Pain Medication Provider 12/07/22 [place] [address] [address] [place] [address] Assigned PCP 01/23/23 [place] [address] [place] [address] Assigned Musculoskeletal Provider 01/23/23 09/19/24 Gregorio Dalton PA-C [address] [place] [address] [address] Assigned Surgical Provider 05/22/23 07/20/24 Kingsley Garcia MD [address] [place] [address] Assigned Heart and Vascular Provider 08/07/23 [place] [address] [address] [place] [address] Family Medicine 09/10/23 Master Shea PA-C [address] [place] [address] Physician Commercial Loan Analyst Gastroenterology 09/10/23 Allyssa Justice MD [facility] [address] [place] [address] [place] [address] Hematology & Oncology 12/10/23 Genaro Christian MD [address] [place] [address] Cardiovascular Disease 12/22/23 Master Shea PA-C [address] [place] [address] Assigned Gastroenterology Provider 12/23/23 Sienna Guillermo DO [address] [place] [address] Physician Cardiovascular Disease 01/18/24 Allyssa Justice MD [facility] [address] [address] [place] [address] Assigned Cancer Care Provider 03/21/24 documented as of this encounter
--- OUTSIDE RECORDS SUMMARY | 2024-09-21 22:42 | XMS_ITS | Encounter Summary ---
Author Organization [facility] Address [address] [place] [address] Care Team Providers Care Director Commercial Sales Name Role Phone Segundo Mcclelland MD Unavailable [phone] Segundo Mcclelland MD Unavailable [phone] Qamar Jackson MD Unavailable Segundo Mcclelland MD Primary Care Provider + Gregorio Dalton PA-C Unavailable [phone] Kingsley Garcia MD Unavailable + [phone] Segundo Mcclelland MD Unavailable [phone] Master Shea PA-C Unavailable Allyssa Justice MD Unavailable [phone] Genaro Christian MD Unavailable [phone] Master Shea PA-C Unavailable Sienna Guillermo DO Unavailable [phone] Allyssa Justice MD Unavailable [phone] Reason for Visit * Reason Comments Syncope Encounter Details Date Type Department Care Team (Late st Contact Info) Description 07/05/2024 1:05 PM CDT - 07/05/2024 7:25 PM CDT Emergency [facility] Emergency Dept [address] [place] [phone] Livia Gutierrez MD [facility] [address] [place] [address] Acute pain of left shoulder; Rib pain on left side; Syncope and collapse; Hypocalcemia Discharge Disposition: Home or Self Care Social [...] AM CDT Legal Sex Female 3:29 AM [employer] Gender Identity Female 05/26/2021 10:37 AM CDT Sexual Orientation Straight 05/26/2021 10 :37 AM CDT Occupation Industry Job Start Date Job End Date unemployed Not on file Not on file Not on file Not on file Not on file Not on file Not on file documented as of this encounter Last Filed Vital Signs Vital Sign Reading Time Taken Comments Blood Pressure 132/85 07/05/2024 5:15 PM CDT Pulse 109 07/05/2024 6:00 PM CDT Temperature 36.9 ??C (98.5 ??F) 07/05/2024 1:08 PM CD T Respiratory Rate 13 07/05/2024 6:00 PM CDT Oxygen Saturation 100% 07/05/2024 6:00 PM CDT Inhaled Oxygen Concentration - - Weight 98.9 kg (218 lb) 07/05/2024 1:08 PM CDT Height 167.6 cm (5' 6) 07/05/2024 1:08 PM CDT Body Mass Index 35.19 07/05/2024 1:08 PM CDT documented in this encounter Discharge Instructions * Discharge Instructions* Livia Gutierrez MD - 07/05/2024 7:20 PM CDT Discharge Instructions Extremity Injury You were seen today for an injury to an extremity (arm, hand, leg, or foot). You may have a bruise,strain, or fracture (broken bone). Generally, every Emergency Department visit should have a follow-up clinic visit with either a primary or a specialty clinic/provider. Please follow-up as instructed by your emergency provider today. Return to the Emergency Department right away if: Your pain seems to change or get worse or there is pain in a new area that wasn???t evaluated today. Your extremity becomes pale, cool, blue, or numb or tingling past the injury. You have more drainage, redness or pain in the area of the cut or abrasion. You have pain that you cannot control with the medicine recommended or prescribed here, or you havepain that seems too much for your injury. Your child (who is injured) will not stop crying or is much more fussy than normal. You have new symptoms or anything that worries you. What to Expect: Your swelling and pain may be worse the day after your injury, but should not be severe and should start getting better after that. You should not have new symptoms and your pain should not get worse. You may start to get a bruise over the injured area or below the injured area (bruising can follow gravity). Your movement and strength should get better with time. Some injuries may not show up until after you have left the Emergency Department so it is importantto follow-up as directed. Your injury may prevent you from working. Follow-up with your regular provider to get a work release note. Pain medications or your injury may make it unsafe to drive or operate machinery. Home Care: RICE: Rest, Ice, Compression, Elevation Rest: Rest your injured area for at least 1-2 days. After that you may start using your extremity again as long as there is not too much pain. Ice: Apply ice your injured area for 15 minutes at a time, at least 3 times a day. Use a cloth between the ice bag and your skin to prevent frostbite. Do not sleep with an ice pack or heating pad on,since this can cause paris or skin injury. Compression: You may use an elastic bandage (Jamaal?? Wrap) if it makes you more comfortable. Wrap it just tight enough to provide light compression, like a new pair of socks feels. Loosen the bandage if you have swelling past the bandage. Elevation: Raise the injured area above the level of your heart as much as possible in the first 1-2 days. Use Tylenol?? (acetaminophen), Motrin (ibuprofen), or Advil?? (ibuprofen) for your pain unless you have an allergy or are told not to use these medications by your provider. Take the medications as instructed on the package. Tylenol?? (acetaminophen) is in many prescription medicines and non-prescription medicines--check all of your medicines to be sure you aren???t taking more than 3000 mg per day. Please follow any other instructions that were discussed with you by your provider. Stretching/Exercises: You may have been provided with instructions for stretching or exercises. If your injury was to your arm or shoulder and your provider put you in a sling or an immobilizer, it is important that you take off your immobilizer within 3 days and stretch/move your shoulder, unless your provider specifically tells you to not move your shoulder. This is to prevent further injury such as a ???frozen shoulder?? . If you were given a prescription for [...] anxiety naloxone (NARCAN) 4 MG/0.1ML nasal spray Palmer 4 mg into one nostril alternating nostrils once as needed for opioid reversal 06/28/2023 pantoprazole (PROTONIX) 40 MG EC tablet Take 40 mg by mouth daily sodium chloride 0.9% infusionIndication s:Gastroparesis Inject 1,000 mLs into the vein as needed for other (Wednesday with IV antibiotic) 84687 mL 06/02/2024 sucralfate (CARAFATE) 1 GM tabletIndications: [...] as of this encounter ED Notes * Jacquelyn Mallory RN - 07/05/2024 1:07 PM CDT Images from the original note were not included. Had a syncopal episode at 1030 this morning. Complaining of pain in the left ribs, back and shoulder. States she hasn't been able to do oral intake, and is requesting IV fluids. Triage Assessment (Adult) Row Name 07/05/24 1306 Triage Assessment Airway WDL WDL Respiratory WDL Respiratory WDL WDL Skin Circulation/Temperature WDL Skin Circulation/Temperature WDL WDL Cardiac WDL Cardiac WDL WDL Peripheral/Neurovascular WDL Peripheral Neurovascular WDL WDL Cognitive/Neuro/Behavioral WDL Cognitive/Neuro/Behavioral WDL X syncopal episode Jody Coma Scale Best Eye Response 4-->(E4) spontaneous Best Motor Response 6-->(M6) obeys commands Best Verbal Response 5-->(V5) oriented Jody Coma Scale Score 15 * Livia Gutierrez MD - 07/05/2024 12:42 PM CDT Emergency Department Note History of Present Illness Chief Complaint Syncope HPI Sandiivan Lopez is a 38 year old female with history of DVT, PE on Eliquis, atrial flutter, hypertension, factitious disorder, malingering, chronic pain syndrome who presents to the ED for evaluation of left shoulder pain and left rib pain. Patient reports that she had a syncopal episode. The patient reports she fell and hit her left side with the washing machine this morning. Independent Historian None Review of External Notes I reviewed the patient's detailed emergency care plan for the patient. No IV opiates or Benadryl are advised. Patient has hypotension/POTS/chronic syncope. She is also chronically tachycardic 120. She does receive IV home infusion of fluids. She has had multiple reassuring workups for syncope. Past Medical History Medical History and Problem List Anemia Atrial flutter Borderline personality disorder Continuous opioid dependence Depressive disorder Drug seeking behavior and malingering Eating disorder Gastro-oesophageal reflux disease Gastroparesis Seizure as child Hypertension Intermittent asthma Kidney stone Obesity Osteomyelitis of lumbar spine PICC Postural orthostatic tachycardia syndrome Psychogenic nonepileptic seizure Pulmonary embolism Medications Eliquis Diflucan Folvite Neurontin Ativan Protonix Carafate Ambien Surgical History Adenoidectomy Ankle surgery Appendectomy Arthroscopy knee with lateral meniscectomy Back surgery Cautery of cervix cryocautery Cholecystectomy Physical Exam Patient Vitals for the past 24 hrs: BP Temp Temp src Pulse Resp SpO2 Height Weight 07/05/24 1800 -- -- -- 109 13 100 % -- -- 07/05/24 1715 132/85 -- -- -- -- -- -- -- 07/05/24 1308 120/66 98.5 ??F (36.9 ??C) Temporal 110 17 98 % 1.676 m (5' 6) 98.9 kg (218 lb) Physical Exam General: Well-nourished, resting comfortably when I enter the room Eyes: Pupils equal, conjunctivae pink no scleral icterus or conjunctival injection ENT: Moist mucus membranes Respiratory: Lungs clear to auscultation bilaterally, no crackles/rubs/wheezes. Good air movement CV: Normal rate and rhythm, no murmurs GI: Abdomen soft and non-distended. No tenderness, guarding or rebound Skin: Warm, dry. No rashes or petechiae. Musculoskeletal: Tenderness to palpation of the left shoulder. No bruising, abrasions, deformities.Patient moves her arm around. Tenderness to palpation of the left lower ribs, without any deformities, bruising, swelling. No peripheral edema or calf tenderness Neuro: Alert and oriented to person/place/time Psychiatric: Normal affect Diagnostics Lab Results Labs Ordered and Resulted from Time of ED Arrival to Time of ED Departure BASIC METABOLIC PANEL - Abnormal Result Value Sodium 138 Potassium 3.9 Chloride 105 Carbon Dioxide (CO2) 22 Anion Gap 11 Urea Nitrogen 15.4 Creatinine 0.58 GFR Estimate >90 Calcium 7.8 (*) Glucose 80 CBC WITH PLATELETS AND DIFFERENTIAL - Abnormal WBC Count 7.9 RBC Count 4.06 Hemoglobin 9.1 (*) Hematocrit 30.4 (*) MCV 75 (*) MCH 22.4 (*) MCHC 29.9 (*) RDW 19.3 (*) Platelet Count 466 (*) % Neutrophils 60 % Lymphocytes 31 % Monocytes 7 % Eosinophils 1 % Basophils 0 % Immature Granulocytes 0 NRBCs per 100 WBC 0 Absolute Neutrophils 4.8 Absolute Lymphocytes 2.4 Absolute Monocytes 0.6 Absolute Eosinophils 0.1 Absolute Basophils 0.0 Absolute Immature Granulocytes 0.0 Absolute NRBCs 0.0 Imaging XR Shoulder Left G/E 3 Views Final Result IMPRESSION: No acute fracture or malalignment. There is normal joint spacing. Chest XR, PA & LAT (Results Pending) EKG ECG results from 07/05/24 EKG 12 lead Value Systolic Blood Pressure Diastolic Blood Pressure Ventricular Rate 105 Atrial Rate 105 CO Interval 152 QRS Duration 66 QT 328 QTc 433 P [place] 60 R AXIS 50 T [place] 58 Interpretation ECG Sinus tachycardia Low voltage QRS Borderline ECG When compared with ECG of 03-Jul-2024 06:16, No significant change was found Confirmed by GENERATED REPORT, COMPUTER ([id number]), manager editorial RODGER SY ([id number]) on 07/05/2024 6:59:06 PM *Note: Due to a large number of results and/or encounters for the requested time period, some results have not been displayed. A complete set of results can be found in Results Review. Independent Interpretation X-ray does not show any fracture or dislocation ED Course Medications Administered Medications sodium chloride 0.9% BOLUS 1,000 mL (0 mLs Intravenous Stopped 07/05/24 1920) HYDROmorphone (DILAUDID) tablet 2 mg (2 mg Oral $Given 07/05/24 4996) Procedures Procedures [facility] Procedure Note FAST (Focused Assessment with Sonography for Trauma): PROCEDURE: PERFORMED BY: Dr. Livia Gutierrez MD INDICATIONS/SYMPTOM: Abdominal Pain PROBE: Low frequency convex probe BODY LOCATION: The ultrasound was performed in the abdominal, subxiphoid, and chest areas. FINDINGS: No evidence of free fluid in hepatorenal (Morison's pouch), perisplenic, or and pelvic areas. No evidence of pericardial effusion. INTERPRETATION: The FAST exam was normal. There was no free fluid present. There was no pericardialeffusion. and No evidence of pneumothorax or hemothorax IMAGE DOCUMENTATION: Images were not archived. Discussion of Management None ED Course ED Course as of 07/05/241945Jul 05, [id number] I obtained history and examined the patient as noted above. 1915 I rechecked and updated the patient. Additional Documentation None Medical Decision Making / Diagnosis [facility] Diagnoses: None MIPS None [facility] Sandi Lopez is a 38 year old female with a history of opioid use disorder, malingering, factitious disorder, chronic syncope, POTS, hypotension, DVT and PE on Eliquis presents to the emergency department with the complaint of left shoulder and left rib pain after a syncopal episode. On exam patient does not have any bruising, abrasions, or physical signs of trauma. She does have tenderness to palpation of her left lower ribs. Abdomen is soft and nontender. She also is complaining of left shoulder pain. Workup does not show any worsening anemia, I do not think that the patient needs a blood transfusion today. Kidney function is within acceptable limits. Calcium is slightly low, she is not having anyconfusion, seizures, cramping, paresthesias. Patient reports that she cannot take calcium supplementation, I will have her follow-up with her primary care physician to discuss other methods of increasing her calcium. She can also do this with diet. All other electrolytes are all within acceptable limits. Patient does not look clinically dehydrated, and her pulse rate is at her baseline. I do not think that she needs any IV fluids at this time. Patient is given her 2 mg of oral Dilaudid. Patient's shoulder x-ray does not show any fracture or dislocation. Patient refuses a chest x-ray because it is too much radiation. I did do a bedside FAST exam which did not show any acute findings.I did ultrasound her lungs, she does have good lung slide. I have low suspicion for pneumothorax. Ihave low suspicion for any intra-abdominal emergencies. Patient is discharged home. Disposition The patient was discharged. Diagnosis ICD-10-CM 1. Acute pain of left shoulder M25.512 2. Rib pain on left side R07.81 3. Syncope and collapse R55 4. Hypocalcemia E83.51 Discharge Medications Discharge Medication List as of 07/05/2024 7:20 PM Scribe Disclosure: I, Dulce Regis, am serving as a scribe at 5:18 PM on 07/05/2024 to document services personally performed by Livia Gutierrez MD based on my observations and the provider's statements to me. Livia Gutierrez MD 07/05/241945 documented in this encounter Plan of Treatment Upcoming Encounters Date Type Department Care Team (Late st Contact Info) Description 02/20/2025 10:20 AM CDT Appointment [facility] [address] [place] [phone] Allyssa Justice MD [facility] [address] [place] [address] 02/27/2025 10:40 AM CDT Virtual Visit [facility] [address] [facility] [place] [phone] Allyssa Justice MD [facility] [address] [place] [address] documented as of this encounter Procedures Procedure Name Priority Date/Time Associated Diagnosis Comments XR SHOULDER LEFT G/E 3 VIEWS STAT 07/05/2024 6:39 PM CDT CBC WITH PLATELETS AND DIFFERENTIAL STAT 07/05/2024 5:46 PM CDT CBC WITH PLATELETS & DIFFERENTIAL STAT 07/05/2024 5:46 PM CDT BASIC METABOLIC PANEL STAT 07/05/2024 5:46 PM CDT EKG 12-LEAD, TRACING ONLY STAT 07/05/2024 5:20 PM CDT documented in this encounter Results * XR Shoulder Left G/E 3 Views (07/05/2024 6:39 PM CDT) Anatomical Region Laterality Modality Shoulder, Left Shoulder Left Digital Radiography 07/05/2024 6:39 PM CDT Impressions 07/05/2024 7:00 PM CDT IMPRESSION: No acute fracture or malalignment. There is normal joint spacing. Narrative 07/05/2024 7:00 PM CDT EXAM: XR SHOULDER LEFT G/E 3 VIEWS LOCATION: [facility] DATE: 07/05/2024 INDICATION: Left shoulder pain COMPARISON: None. Procedure Note Josh Pate MD - 07/05/2024 EXAM: XR SHOULDER LEFT G/E 3 VIEWS LOCATION: [facility] DATE: 07/05/2024 INDICATION: Left shoulder pain COMPARISON: None. IMPRESSION: No acute fracture or malalignment. There is normal jointspacing. Livia Gutierrez MD IMG DIAGNOSTIC IMAGING O RDERABLES Final Result * (ABNORMAL) CBC with platelets and differential (07/05/2024 5:46 PM CDT) [facility] WBC Count 7.9 4.0 - 11.0 10e3/uL 07/05/2024 5:52 PM CDT LABORATORY RBC Count 4.06 3.80 - 5.20 10e6/uL 07/05/2024 5:52 PM CDT LABORATORY Hemoglobin 9.1(L) 11.7 - 15.7 g/dL 07/05/2024 5:52 PM CDT LABORATORY Hematocrit 30.4(L) 35.0 - 47.0 % 07/05/2024 5:52 PM CDT LABORATORY MCV 75(L) 78 - 100 fL 07/05/2024 5:52 PM CDT LABORATORY MCH 22.4(L) 26.5 - 33.0 pg 07/05/2024 5:52 PM CDT LABORATORY MCHC 29.9(L) 31.5 - 36.5 g/dL 07/05/2024 5:52 PM CDT LABORATORY RDW 19.3(H) 10.0 - 15.0 % 07/05/2024 5:52 PM CDT LABORATORY Platelet Count 466(H) 150 - 450 10e3/uL 07/05/2024 5:52 PM CDT LABORATORY % Neutrophils 60 % 07/05/2024 5:52 PM CDT LABORATORY % Lymphocytes 31 % 07/05/2024 5:52 PM CDT LABORATORY % Monocytes 7 % 07/05/2024 5:52 PM CDT LABORATORY % Eosinophils 1 % 07/05/2024 5:52 PM CDT LABORATORY % Basophils 0 % 07/05/2024 5:52 PM CDT LABORATORY % Immature Granulocytes 0 % 07/05/2024 5:52 PM CDT LABORATORY NRBCs per 100 WBC 0 <1 /100 024 5:52 PM CDT LABORATORY Absolute Neutrophils 4.8 1.6 - 8.3 10e3/uL 07/05/2024 5:52 PM CDT LABORATORY Absolute Lymphocytes 2.4 0.8 - 5.3 10e3/uL 07/05/2024 5:52 PM CDT LABORATORY Absolute Monocytes 0.6 0.0 - 1.3 10e3/uL 07/05/2024 5:52 PM CDT LABORATORY Absolute Eosinophils 0.1 0.0 - 0.7 10e3/uL 07/05/2024 5:52 PM CDT LABORATORY Absolute Basophils 0.0 0.0 - 0.2 10e3/uL 07/05/2024 5:52 PM CDT LABORATORY Absolute Immature Granulocytes 0.0 <=0.4 10e3/uL 07/05/2024 5:52 PM CDT LABORATORY Absolute NRBCs 0.0 10e3/uL 07/05/2024 5:52 PM CDT LABORATORY Blood BLOOD SPECIMEN / Unknown Venipuncture / Unknown 07/05/2024 5:46 PM CDT 07/05/2024 5:50 PM CDT Livia Gutierrez MD LAB - BLOOD ORDERABLES F inal Result LABORATORY [facility] [address] 1[address] floor, [address] [place] [address], [facility] [phone] * (ABNORMAL) Basic metabolic panel (07/05/2024 5:46 PM CDT) Sodium 138 135 - 145 mmol/L 07/05/2024 6:14 PM CDT LABORATORY Potassium 3.9 3.4 - 5.3 mmol/L 07/05/2024 6:14 PM CDT LABORATORY Chloride 105 98 - 107 mmol/L 07/05/2024 6:14 PM CDT LABORATORY Carbon Dioxide (CO2) 22 22 - 29 mmol/L 07/05/2024 6:14 PM CDT LABORATORY Anion Gap 11 7 - 15 mmol/L 07/05/2024 6:14 PM CDT LABORATORY Urea Nitrogen 15.4 6.0 - 20.0 mg/dL 07/05/2024 6:14 PM CDT LABORATORY Creatinine 0.58 0.51 - 0.95 mg/dL 07/05/2024 6:14 PM CDT LABORATORY GFR Estimate >90 >60 mL/min/1.7 3m2 07/05/2024 6:14 PM CDT LABORATORY Comment:eGFR calculated usin g 2020 CKD-EPI equation. Calcium 7.8(L) 8.8 - 10.4 mg/dL 07/05/2024 6:14 PM CDT LABORATORY Comment:Reference intervals for this test were updated on 06/13/2024 to reflect our healthy population more accurately. There may be differences in the flagging of prior results with similar values performed with this method. Those prior results can be interpreted in the context of the updated reference intervals. Glucose 80 70 - 99 mg/dL 07/05/2024 6:14 PM CDT LABORATORY Blood BLOOD SPECIMEN / Unknown Venipuncture / Unknown 07/05/2024 5:46 PM CDT 07/05/2024 5:50 PM CDT Livia Gutierrez MD LAB - BLOOD ORDERABLES F inal Result Performing Organization Address City/[facility]/ZIP Co de Phone Number LABORATORY [facility] [address] 1[address] floor, [address] [place] [address], [facility] [phone] * EKG 12 lead (07/05/2024 5:20 PM CDT) Systolic Blood Pressure mmHg RADIOLOGY RESULTS Diastolic Blood Pressure mmHg RADIOLOGY RESULTS Ventricular Rate 105 BPM RAD IOLOGY RESULTS Atrial Rate 105 BPM RADIOLOG Y RESULTS CO Interval 152 ms RADIOLOG Y RESULTS QRS Duration 66 ms RADIOLO GY RESULTS QT 328 ms RADIOLOGY RESULTS QTc 433 ms RADIOLOGY RESULTS P [place] 60 degrees RADIOLOGY RESULTS R AXIS 50 degrees RADIOLOGY RESULTS T [place] 58 degrees RADIOLOGY RESULTS Interpretation ECG Sinus tachycardia Low voltage QRS Borderline ECG When compared with ECG of 03-Jul-2024 06:16, No significant change was found Confirmed by GENERATED REPORT, COMPUTER ([id number]), manager editorial RODGER SY ([id number]) on 07/05/2024 6:59:06 PM RADIOLOGY RESULTS 07/05/2024 5:20 PM CDT 07/05/2024 6:59 PM CDT Livia Gutierrez MD ECG ORDERABLES Edited R esult - Final RADIOLOGY RESULTS documented in this encounter Visit Diagnoses Diagnosis Acute pain of left shoulder Rib pain on left side Chest pain, unspecified Syncope and collapse Hypocalcemia documented in this encounter Administered Medications Inactive Administered Medications - up to 3 most recent administrations Medication Order MAR Action Action Date Dose Rate Site HYDROmorphone (DILAUDID) tablet 2 mg 2 mg, Oral, ONCE, On Wed07/05/24 at 1720, For 1 dose $Given 07/05/2024 5:53 PM CDT 2 mg sodium chloride 0.9% BOLUS 1,000 mL Intravenous, 1,000 mL, ONCE, On Wed07/05/24 at 1355, For 1 dose $New Bag 07/05/2024 5:53 PM CDT 1,000 mLs documented in this encounter Active and Recently Administered Medications Times are shown in CDT. Scheduled Medication Order 07/03/2024 07/04/2024 07/05/2024 HYDROmorphone (DILAUDID) tablet 2 mg (COMPLETED) 2 mg, Oral, ONCE, On Wed07/05/24 at 1720, For 1 dose 1753 ($Given - Provi rosita: Ugo Morales RN) sodium chloride 0.9% BOLUS 1,000 mL (COMPLETED) Intravenous, 1,000 mL, ONCE, On Wed07/05/24 at 1355, For 1 dose 1753 ($New Bag - Pro vider: Ugo Morales RN)1850 (Paused - Provider: Ugo Morales RN - Comment: Iv infiltrated)1920 (Stopped - Provider: Ugo Morales RN) 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 Assessment Noted Time PHQ-9 Depression Total Score: 4 02/21/20 24 1:54 PM CDT documented as of this encounter Care Teams Director Commercial Sales Relationship Specialty Start [place] [address] [address] PCP - General Family Medicine 04/22/23 [place] [address] [address] [address] Assigned Pain Medication Provider 12/07/22 [place] [address] [address] [address] Assigned PCP 01/23/23 [place] [address] [address] [place] [address] Assigned Musculoskeletal Provider 01/23/23 09/19/24 Gregorio Dalton PA-C [address] [place] [address] Assigned Surgical Provider 05/22/23 07/20/24 Kingsley Garcia MD [address] [place] [address] Assigned Heart and Vascular Provider 08/07/23 [place] [address] [place] [address] Family Medicine 09/10/23 Master Shea PA-C [address] [place] [address] Physician Licensed Insurance Agent Gastroenterology 09/10/23 Allyssa Justice MD [facility] [address] [place] [address] Hematology & Oncology 12/10/23 Genaro Christian MD [address] [place] [address] Cardiovascular Disease 12/22/23 Master Shea PA-C [id number] [place] [address] Assigned Gastroenterology Provider 12/23/23 Sienna Guillermo DO [address] [place] [address] Physician Cardiovascular Disease 01/18/24 Allyssa Justice MD [facility] [address] [address] Assigned Cancer Care Provider 03/21/24 documented as of this encounter
--- OUTSIDE RECORDS SUMMARY | 2024-09-21 22:42 | XMS_ITS | Encounter Summary ---
Author Organization [facility] Address [address] [place] [address] Care Team Providers Care Supervisory Aide Name Role Phone Segundo Mcclelland MD Unavailable [phone] Segundo Mcclelland MD Unavailable +[phone] Qamar Jackson MD Unavailable Segundo Mcclelland MD Primary Care Provider + Gregorio Dalton PA-C Unavailable +[phone] Kingsley Garcia MD Unavailable + [phone] Segundo Mcclelland MD Unavailable +[phone] Master Shea PA-C Unavailable Allyssa Justice MD Unavailable [phone] Genaro Christian MD Unavailable [phone] Master Shea PA-C Unavailable Sienna Guillermo DO Unavailable +[phone] Allyssa Justice MD Unavailable [phone] Encounter Details Date Type Department Care Team (Late st Contact Info) Description 06/30/2024 [facility] Surgery [place] [address] [facility] [address] [place] [phone] Declan Leavitt MD [address] [place] [address] Social History Tobacco Use Types Packs/Day Years [...] AM CDT 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 Prep reviewed with pt. documented in this encounter Plan of Treatment Upcoming Encounters Date Type Department Care Team (Late st Contact Info) Description 02/20/2025 10:20 AM CDT Appointment [facility] Imaging [address] [place] [address] Allyssa Justice MD [facility] [address] [place] [address] [place] [address] 02/27/2025 10:40 AM CDT Virtual Visit [facility] [address], [place] [address] [facility] [place] [address] Allyssa Justice MD [facility] [address] [place] [address] [place] [address] documented as of this encounter Visit Diagnoses Not on file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 Assessment Noted Time PHQ-9 Depression Total Score: 4 02/21/20 24 1:54 PM CDT documented as of this encounter Care Teams Supervisory Aide Relationship Specialty Start [place] [address] [address] [address] PCP - General Family Medicine 04/22/23 [place] [address] [address] [address] Assigned Pain Medication Provider 12/07/22 [place] [address] [place] [address] Assigned PCP 01/23/23 [place] [address] [place] [address] Assigned Musculoskeletal Provider 01/23/23 09/19/24 Gregorio Dalton PA-C [address] [address] Assigned Surgical Provider 05/22/23 07/20/24 Kingsley Garcia MD [address] [place] [address] Assigned Heart and Vascular Provider 08/07/23 [place] [address] [address] [address] Family Medicine 09/10/23 Master Shea PA-C [address] [facility] [place] [address] Physician Film Cleaner Gastroenterology 09/10/23 Allyssa Justice MD [facility] [address] [place] [address] [place] 524565 Hematology & Oncology 12/10/23 Genaro Christian MD [address] [place], [place] [address] Cardiovascular Disease 12/22/23 Master Shea PA-C [address] [place] [address] Assigned Gastroenterology Provider 12/23/23 Sienna Guillermo DO [address] [place] [address] Physician Cardiovascular Disease 01/18/24 Allyssa Justice MD [facility] [address] [place] [address] [place] [address] Assigned Cancer Care Provider 03/21/24 documented as of this encounter
--- OUTSIDE RECORDS SUMMARY | 2024-09-21 22:42 | XMS_ITS | Encounter Summary ---
Author Organization [facility] Address [address] [place] [address] Care Team Providers Care Sustainment Logistics Analyst Name Role Phone Segundo Mcclelland MD Unavailable [phone] Segundo Mcclelladn MD Unavailable +[phone] Qamar Jackson MD Unavailable Segundo Mcclelland MD Primary Care Provider + Gregorio Dalton PA-C Unavailable [phone] Kingsley Garcia MD Unavailable + [phone] Segundo Mcclelland MD Unavailable +[phone] Master Shea PA-C Unavailable Allyssa Justice MD Unavailable [phone] Genaro Christian MD Unavailable + [phone] Master Shea PA-C Unavailable Sienna Guillermo DO Unavailable +[phone] Allyssa Justice MD Unavailable [phone] Declan Leavitt MD Unavailable Ugo Ochoa MD Unavailable Encounter Details Date Type Department Care Team (Late st Contact Info) Description 06/29/2024 MyC Medical Advice [facility] [place] [id number] [place] [address] Ashly Donnelly, RN Social History Tobacco Use [...] in an abandoned building, in an overnight halfway, or couch-surfing.) Yes 08/26/2023 Are you worried [...] AM CDT 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 Gender Identity Female 05/26/2021 10:37 AM CDT [...] 02/20/2025 10:20 AM CDT Appointment [facility] Imaging [address] [place] [address] Allyssa Justice MD [facility] [address] [place] [address] 02/27/2025 10:40 AM CDT Virtual Visit [facility] [address], [address] [facility] Medical Ctr [place] [phone] Allyssa Jsutice MD [facility] [address] [place] [address] [place] [id number] documented as of this encounter Visit Diagnoses Not on file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 Assessment Noted Time PHQ-9 Depression Total Score: 4 02/21/20 24 1:54 PM CDT documented as of this encounter Care Teams Sustainment Logistics Analyst Relationship Specialty Start [place] [address] [address] [address] PCP - General Family Medicine 04/22/23 [place] [address] [address] [address] Assigned Pain Medication Provider 12/07/22 [place] [address] [address] [address] Assigned PCP 01/23/23 [place] [address] [address] [place] [address] Assigned Musculoskeletal Provider 01/23/23 09/19/24 Gregorio Dalton PA-C [address] [place] [address] Assigned Surgical Provider 05/22/23 07/20/24 Kingsley Garcia MD [address] [place] [address] Assigned Heart and Vascular Provider 08/07/23 [place] [address] [place] [address] Family Medicine 09/10/23 Master Shea PA-C [address] [place] [address] Physician Maintenance Shop Clerk Gastroenterology 09/10/23 Allyssa Justice MD [facility] [address] [place] [address] [place] [address] Hematology & Oncology 12/10/23 Genaro Christian MD [address] [place] [address] Cardiovascular Disease 12/22/23 Master Shea PA-C [address] [place] [address] Assigned Gastroenterology Provider 12/23/23 Sienna Guillermo DO [address] [place] [address] Physician Cardiovascular Disease 01/18/24 Allyssa Justice MD [facility] [address] [place] [address] Assigned Cancer Care Provider 03/21/24 Declan Leavitt MD [address] [place] [address] [place] [address] Assigned Surgical Provider 07/21/24 Ugo Ochoa MD [address] [place], [place] [address] Assigned Neuroscience Provider 09/20/24 documented as of this encounter
--- OUTSIDE RECORDS SUMMARY | 2024-09-21 22:42 | XMS_ITS | Encounter Summary ---
Author Organization [facility] Address [address] [place] [address] Care Team Providers Care Math Interventionist Name Role Phone Segundo Mcclelland MD Unavailable [phone] Segundo Mcclelland MD Unavailable +[phone] Qamar Jackson MD Unavailable Segundo Mcclelland MD Primary Care Provider + Gregorio Dalton PA-C Unavailable +[phone] Kingsley Garcia MD Unavailable + [phone] Segundo Mcclelland MD Unavailable [phone] Master Shea PA-C Unavailable Allyssa Justice MD Unavailable [phone] Genaro Christian MD Unavailable + [phone] Master Shea PA-C Unavailable Sienna Guillermo DO Unavailable +[phone] Allyssa Justice MD Unavailable [phone] Encounter Details Date Type Department Care Team (Latest Contact Info) Description 07/07/2024 Travel Social History Tobacco Use Types Packs/Day [...] AM CDT 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 [address] [place] [address] [place] [address] 02/27/2025 10:40 AM CDT Virtual Visit [facility] [address] [place] [address] [facility] Medical Ctr [place] [phone] Allyssa Justice MD 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 Assessment Noted Time PHQ-9 Depression Total Score: 4 02/21/20 24 1:54 PM CDT documented as of this encounter Care Teams Math Interventionist Relationship Specialty Start [place] [address] [address] [address] PCP - General Family Medicine 04/22/23 [place] [address] [address] [address] Assigned Pain Medication Provider 12/07/22 [place] [address] [address] [address] Assigned PCP 01/23/23 [place] [address] [address] [place] [address] Assigned Musculoskeletal Provider 01/23/23 09/19/24 Gregorio Dalton PA-C [address] [address] Assigned Surgical Provider 05/22/23 07/20/24 Kingsley Garcia MD [address] [place] [address] Assigned Heart and Vascular Provider 08/07/23 [place] [address] [place] [address] Family Medicine 09/10/23 Master Shea PA-C [address] [place] [address] Physician Vp Of Digital Marketing Gastroenterology 09/10/23 Allyssa Justice MD [facility] [address] [place] [address] [place] [address] Hematology & Oncology 12/10/23 Genaro Christian MD [address] [place] [address] Cardiovascular Disease 12/22/23 Master Shea PA-C [address] [place] [address] Assigned Gastroenterology Provider 12/23/23 Sienna Guillermo DO [address] [place] [address] Physician Cardiovascular Disease 01/18/24 Allyssa Justice MD [facility] [address] [place] [address] [place] [address] Assigned Cancer Care Provider 03/21/24 documented as of this encounter
--- OUTSIDE RECORDS SUMMARY | 2024-09-21 22:42 | XMS_ITS | Encounter Summary ---
Author Organization [facility] Address [address] [place] [address] Care Team Providers Care Payroll And Benefits Specialist Name Role Phone Segundo Mcclelland MD Unavailable [phone] Segundo Mcclelland MD Unavailable [phone] Qamar Jacskon MD Unavailable Segundo Mcclelland MD Primary Care Provider + Gregorio Dalton PA-C Unavailable +[phone] Kingsley Garcia MD Unavailable + [phone] Segundo Mcclelland MD Unavailable [phone] Master Shea PA-C Unavailable Allyssa Justice MD Unavailable [phone] Genaro Christian MD Unavailable + [phone] Master Shea PA-C Unavailable Sienna Guillermo DO Unavailable +[phone] Allyssa Justice MD Unavailable [phone] Declan Leavitt MD Unavailable Ugo Ochoa MD Unavailable Encounter Details Date Type Department Care Team (Late st Contact Info) Description 06/28/[address] 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 Mcclelland. Pt has been in the ER 4 times in the last week. Looks like pt had an appt with Dr. Declan Leavitt, Surgery - not seeing note from surgeon though? documented in this encounter Plan of Treatment Upcoming Encounters Date Type Department Care Team (Late st Contact Info) Description 02/20/2025 10:20 AM CDT Appointment [facility] Imaging [address] [place] [address] [place] [address] Allyssa Justice MD [facility] [address] [place] [address] [place] [address] 02/27/2025 10:40 AM CDT Virtual Visit [facility] [address] [place] [address] 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 Assessment Noted Time PHQ-9 Depression Total Score: 4 02/21/20 24 1:54 PM CDT documented as of this encounter Care Teams Payroll And Benefits Specialist Relationship Specialty Start [place] [address] [address] [address] PCP - General Family Medicine 04/22/23 [place] [address] [address] [address] Assigned Pain Medication Provider 12/07/22 [place] [address] [address] [address] Assigned PCP 01/23/23 [place] [address] [place] [address] Assigned Musculoskeletal Provider 01/23/23 09/19/24 Gregorio Dalton PA-C [address] [place] [address] Assigned Surgical Provider 05/22/23 07/20/24 Kingsley Garcia MD [address] [place] [address] Assigned Heart and Vascular Provider 08/07/23 [place] [address] [address] [address] Family Medicine 09/10/23 Master Shea PA-C [address] [place] [address] Physician Windows Server Architect Gastroenterology 09/10/23 Allyssa Justice MD [facility] [address] [place] [address] [place] [address] Hematology & Oncology 12/10/23 Genaro Christian MD [address] [place], [place] [address] Cardiovascular Disease 12/22/23 Master Shea PA-C [address] [place] [address] Assigned Gastroenterology Provider 12/23/23 Sienna Guillermo DO [address] [place] [address] Physician Cardiovascular Disease 01/18/24 Allyssa Justice MD [facility] [address] [place] [place] [address] Assigned Cancer Care Provider 03/21/24 Declan Leavitt MD [address] [place] [address] [place] [address] Assigned Surgical Provider 07/21/24 Ugo Ochoa MD [address] [place], [place] [address] Assigned Neuroscience Provider 09/20/24 documented as of this encounter
--- OUTSIDE RECORDS SUMMARY | 2024-09-21 22:42 | XMS_ITS | Encounter Summary ---
Author Organization [facility] Address [address] [place] [address] Care Team Providers Care Medical Nurse Name Role Phone Segundo Mcclelland MD Unavailable [phone] Segundo Mcclelland MD Unavailable +[phone] Qamar Jackson MD Unavailable Segundo Mcclelland MD Primary Care Provider + Gregorio Dalton PA-C Unavailable +[phone] Kingsley Garcia MD Unavailable + [phone] Segundo Mcclelland MD Unavailable +[phone] Master Shea PA-C Unavailable Allyssa Justice MD Unavailable [phone] Genaro Christian MD Unavailable + [phone] Master Shea PA-C Unavailable Sienna Guillermo DO Unavailable +[phone] Allyssa Justice MD Unavailable [phone] Encounter Details Date Type Department Care Team (Late st Contact Info) Description 07/07/2024 7:40 AM CDT Ancillary Procedure [facility] Imaging [address] [place] [address] PrietoKamryn DO [address] [facility] 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 Medical Ctr [place] [phone] Allyssa Justice MD [facility] [address] [place] [address] [place] [address] documented as of this encounter Procedures Procedure Name Priority Date/Time Associated Diagnosis Comments POC US RESUSCITATION STAT 07/07/2024 7:39 AM CDT documented in this encounter Results * POC US RESUSCITATION (07/07/2024 7:39 AM [...] free fluid within the pericardium. 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 Assessment Noted Time PHQ-9 Depression Total Score: 4 02/21/20 24 1:54 PM CDT documented as of this encounter Care Teams Medical Nurse Relationship Specialty Start [place] [address] [address] [address] PCP - General Family Medicine 04/22/23 [place] [address] [place] [address] Assigned Pain Medication Provider 12/07/22 [place] [address] [address] [address] Assigned PCP 01/23/23 [place] [address] [address] [place] [place] [address] Assigned Musculoskeletal Provider 01/23/23 09/19/24 Gregorio Dalton PA-C [address] [address] Assigned Surgical Provider 05/22/23 07/20/24 Kingsley Garcia MD [address] [place] [address] Assigned Heart and Vascular Provider 08/07/23 [place] [address] [place] [address] Family Medicine 09/10/23 Master Shea PA-C [address] [place] [address] Physician Smooth Plater Gastroenterology 09/10/23 Allyssa Justice MD [facility] [address] [place] [address] Hematology & Oncology 12/10/23 Genaro Christian MD [address] [place] [address] Cardiovascular Disease 12/22/23 Master Shea PA-C [address] [place] [address] Assigned Gastroenterology Provider 12/23/23 Sienna Guillermo DO [address] [place] [address] Physician Cardiovascular Disease 01/18/24 Allyssa Justice MD [facility] [address] [place] [address] Assigned Cancer Care Provider 03/21/24 documented as of this encounter
--- OUTSIDE RECORDS SUMMARY | 2024-09-21 22:43 | XMS_ITS | Encounter Summary ---
Author Organization [place] Address [address] [place] [address] Care Team Providers Care Load Checker Name Role Phone Segundo Mcclelland MD Unavailable [phone] Segundo Mcclelland MD Unavailable [phone] Qamar Jackson MD Unavailable Segundo Mcclelland MD Primary Care Provider + Gregorio Dalton PA-C Unavailable [phone] Kingsley Garcia MD Unavailable + [phone] Segundo Mcclelland MD Unavailable [phone] Master Shea PA-C Unavailable Allyssa Justice MD Unavailable [phone] Genaro Christian MD Unavailable [phone] Master Shea PA-C Unavailable Sienna Guillermo DO Unavailable [phone] Allyssa Justice MD Unavailable [phone] Reason for Visit * Reason Comments Fall Arm Pain Encounter Details Date Type Department Care Team (Late st Contact Info) Description 06/23/2024 11:50 PM CDT - 06/24/2024 7:36 AM CDT Emergency [facility] Emergency Dept [address] [place] [address] Mariela Herbert MD [facility] [address] [place] [address] Pain of right upper extremity; Syncope, unspecified [...] AM CDT 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 Gender Identity Female 05/26/2021 10:37 AM CDT Sexual Orientation Straight 05/26/2021 10 :37 AM CDT Occupation Industry Job Start Date Job End Date unemployed Not on file Not on file Not on file Not on file Not on file Not on file Not on file documented as of this encounter Last Filed Vital Signs Vital Sign Reading Time Taken Comments Blood Pressure 135/94 06/24/2024 6:07 AM CDT Pulse 125 06/23/2024 11:54 PM CDT Temperature 36.7 ??C (98.1 ??F) 06/23/2024 11:54 PM C DT Respiratory Rate 22 06/23/2024 11:54 PM CDT Oxygen Saturation 99% 06/24/2024 6:08 AM CDT Inhaled Oxygen Concentration - - Weight - - Height - - Body Mass Index - - documented in this encounter Discharge Instructions * Discharge Instructions* Mariela Herbert MD - 06/24/2024 7:03 AM CDT Continue your outpatient follow-up. It is important to communicate with your primary care, GI, and surgical team. If you feel your condition has changed or worsened, please call your doctor or return to the emergency department right away. documented in this encounter Medications at Time [...] anxiety naloxone (NARCAN) 4 MG/0.1ML nasal spray [place] 4 mg into one nostril alternating nostrils once as needed for opioid reversal 06/28/2023 pantoprazole (PROTONIX) 40 MG EC tablet Take 40 mg by mouth daily sodium chloride 0.9% infusionIndication s:Gastroparesis Inject 1,000 mLs into the vein as needed for other (Wednesday with IV antibiotic) 66373 mL 06/02/2024 sucralfate (CARAFATE) 1 GM tabletIndications: [...] as of this encounter ED Notes * Miranda Alexandra RN - 06/24/2024 1:54 AM CDT Pt removed C-collar by self, refused teaching in regards to importance of keeping c-collar on untilCT scan results. * Gifty White RN - 06/23/2024 11:54 PM CDT Patient presents to the ER for complaints of right arm and wrist pain after falling in the shower. Patient reports around 2250 had an unwitnessed fall in the shower where she is pretty certain she passed out and didn't fall. Patient endorses 6/10 right arm pain and neck pain. Uncertain if she hithead. C collar placed in triage Triage Assessment (Adult) Row Name 06/23/24 9072 Triage Assessment Airway WDL WDL Respiratory WDL Respiratory WDL WDL Skin Circulation/Temperature WDL Skin Circulation/Temperature WDL WDL Cardiac WDL Cardiac WDL X;rhythm Pulse Rate & Regularity tachycardic Peripheral/Neurovascular WDL Peripheral Neurovascular WDL WDL Cognitive/Neuro/Behavioral WDL Cognitive/Neuro/Behavioral WDL WDL * Mariela Herbert MD - 06/23/2024 11:26 PM CDT Emergency Department Note History of Present Illness Chief Complaint Fall and Arm Pain HPI Sandi Lopez is a 38 year old female with history of hypertension, PE, and chronic pain syndrome who presents to the ED for evaluation of arm pain and fall. She reports falling in the shower yesterday and passed out. She endorses right arm, right wrist pain and neck pain currently along withnausea. She has head pain but thinks this is related to her being dehydrated. She isn't sure what she exactly hit to have so much pain. Patient usually takes benadryl, ativan, and valium for her nausea but hasn't since her PICC line was removed. Patient is scheduled to have a feeding tube placed insoon. Independent Historian None Review of External Notes None Past Medical History Medical History and Problem List Allergic rhinitis Anemia Atrial flutter Borderline personality disorder Continuous opioid dependence Depressive disorder Drug-seeking behavior Malingering Dysthymic disorder Eating disorder Gastro-oesophageal reflux disease Chronic gastroparesis Recurrent GI bleed Seizure History of blood transfusion Hypertension Asthma Kidney stone Kathleen-Mustafa tear Obesity Osteomyelitis PICC in place Postural orthostatic tachycardia syndrome Psychogenic nonepileptic seizure PTSD Pulmonary embolism Chronic pain syndrome Bacteremia Chronic factitious disorder Anxiety Endometriosis Migraines SBO PID UTI Orthostatic syncope Hypertension Sinus tachycardia Medications Eliquis Epinephrine Ferrous sulfate Diflucan Folvite Neurontin Ativan Narcan Protonix Carafate Ambien Surgical History Adenoidectomy Ankle surgery Appendectomy Left knee arthroscopy with lateral menisectomy Back surgery Cautery of cervix, cryocautery Cerclage cervical Cholecystectomy Colonoscopy Colposcopy, loop electrode cervix excision Endoscopic retrograde cholangiopancreatography EGD combined x5 Vaginal hysterectomy Insert midline HE Insert PICC line IR bone biopsy vertebral IR chest port placement x2 IR lumbar puncture IR PICC placement x5 IR port check right IR port removal x2 Irrigation and debridement right foot, combined Laryngoscopy, esophagoscopy Oophorectomy, right Remove port vascular access Talar fracture surgery Tonsillectomy Transesophageal echocardiogram intraoperative Tubal ligation Lumbar discectomy Physical Exam Patient Vitals for the past 24 hrs: BP Temp Temp src Pulse Resp SpO2 06/24/24 0608 -- -- -- -- -- 99 % 06/24/24 0607 (!) 135/94 -- -- -- -- -- 06/23/24 2354 129/70 98.1 ??F (36.7 ??C) Temporal (!) 125 22 98 % Physical Exam General: Resting on the gurney, appears uncomfortable, Actively retching into an emesis bag Head: The scalp, face, and head appear normal Mouth/Throat: Mucus membranes are moist Neck: No midline tenderness to palpitation CV: Regular rate Normal S1 and S2 No pathological murmur Resp: Breath sounds clear and equal bilaterally Non-labored, no retractions or accessory muscle use No coarseness No wheezing GI: Abdomen is soft, no rigidity No tenderness to palpation MS: Normal motor assessment of all extremities. Good capillary refill noted. Right arm with tenderness to palpitation of the forearm Skin: No rash or lesions noted. Neuro: Speech is normal and fluent. No apparent deficit. Psych: Awake. Alert. Normal affect. Appropriate interactions. Diagnostics Imaging Radius/Ulna XR, PA & LAT, right Final Result IMPRESSION: Within normal limits. No fracture. CT Cervical Spine w/o Contrast Final Result IMPRESSION: 1. No acute cervical spine fracture. Report per radiology EKG ECG results from 06/23/24 EKG 12-lead, tracing only Value Systolic Blood Pressure Diastolic Blood Pressure Ventricular Rate [address] Interval 140 QRS Duration 64 QT 284 QTc 420 P Luttrell 82 R AXIS 56 T Luttrell 48 Interpretation ECG Sinus tachycardia Low voltage QRS Borderline ECG When compared with ECG of 19-Jun-2024 12:29, No significant change was found Read at 0345 *Note: Due to a large number of results and/or encounters for the requested time period, some results have not been displayed. A complete set of results can be found in Results Review. Independent Interpretation X-ray arm shows no fxr ED Course Medications Administered Medications sodium chloride 0.9% BOLUS 1,000 mL (0 mLs Intravenous Stopped 06/24/24 0625) HYDROmorphone (DILAUDID) tablet 2 mg (2 mg Oral $Given 06/24/24 0637) Optional/Additional Documentation None Healthcare Access/Compliance and Social Connections/Isolation ED Course ED Course as of 06/24/24 0648 Sat Jun 24, 2024 9802 I obtained history and examined the patient as noted above. Medical Decision Making / Diagnosis MDM Sandi Lopez is a 38 year old female well-known to this emergency department who presents following a fall after syncopal episode. Patient has frequent syncopal episodes and is seen for these regularly in this emergency department. She previously had a PICC line and was receiving IV fluids as an outpatient. Her PICC line was recently came out and is not being replaced. Instead she is getting a G-tube though this has not yet happened. Therefore despite her care plan stating that she can receive IV fluids as an outpatient and does not need them in the emergency department, she currently is not getting them as an outpatient due to loss of her PICC. She was given a liter of fluids in theemergency department for symptom control. Additionally she requested a dose of her oral Dilaudid and compliance with her care plan. This was provided. She states after the fluids and Dilaudid she felt much better and was comfortable with plan to discharge home. She was discharged with instructions to follow-up with her primary care team. Disposition The patient was discharged. ICD-10 Codes: ICD-10-CM 1. Pain of right upper extremity M79.601 2. Syncope, unspecified syncope type R55 Scribe Disclosure: Yelitza Sanchez, am serving as a scribe at 3:51 AM on 06/24/2024 to document services personally performed by Mariela Herbert MD based on my observations and the provider's statements to me. Mariela Herbert MD 06/24/24 0929 documented in this encounter Plan of Treatment Upcoming Encounters Date Type Department Care Team (Late st Contact Info) Description 02/20/2025 10:20 AM CDT Appointment [facility] Imaging [address] [place] [address] [place] [phone] Allyssa Justice MD [facility] [address] [place] [address] [place] [address] 02/27/2025 10:40 AM CDT Virtual Visit [facility] [address], [place] [address] [facility] [place] [phone] Allyssa Justice MD [facility] [address] [place] [address] [place] [id number] documented as of this encounter Procedures Procedure Name Priority Date/Time Associated Diagnosis Comments XR FOREARM RIGHT 2 VIEWS STAT 06/24/2024 12:[address] CERVICAL SPINE W/O CONTRAST STAT 06/24/2024 12:40 AM CDT EKG 12-LEAD, TRACING ONLY STAT 06/24/2024 12:05 AM CDT documented in this encounter Results * Radius/Ulna XR, PA & LAT, right (06/24/2024 12:42 AM CDT) Anatomical Region Laterality Modality Forearm, Right Forearm Right Digital R adiography 06/24/2024 12:4 2 AM CDT Impressions 06/24/2024 1:00 AM CDT IMPRESSION: Within normal limits. No fracture. Narrative 06/24/2024 1:00 AM CDT EXAM: XR FOREARM RIGHT 2 VIEWS LOCATION: [facility] DATE: 06/24/2024 INDICATION: Arm pain COMPARISON: None. Procedure Note Genaro Sandoval MD - 06/24/2024 EXAM: XR FOREARM RIGHT 2 VIEWS LOCATION: [facility] DATE: 06/24/2024 INDICATION: Arm pain COMPARISON: None. IMPRESSION: Within normal limits. No fracture. Mariela Herbert MD [facility] ORDERAB LES Final Result * CT Cervical Spine w/o Contrast (06/24/2024 12:40 AM CDT) Anatomical Region Laterality Modality Spine, SUBRAD CT NEURO, SUBR AD CT NEURO, UMP CT SPINE, RAD CT Computed Tomography 06/24/2024 12:4 0 AM CDT Impressions 06/24/2024 1:02 AM CDT IMPRESSION: 1. ??No acute cervical spine fracture. Narrative 06/24/2024 1:02 AM CDT EXAM: CT CERVICAL SPINE W/O CONTRAST LOCATION: [facility] DATE: 06/24/2024 INDICATION: ??Trauma, fall, pain COMPARISON: CT cervical spine 06/09/2024 none available for review TECHNIQUE: Routine CT Cervical Spine without IV contrast. Multiplanar reformats. Dose reduction techniques were used. FINDINGS: VERTEBRA: Normal vertebral body heights and alignment. No fracture or posttraumatic subluxation. CANAL/FORAMINA: No canal or neural foraminal stenosis. PARASPINAL: No extraspinal abnormality. Procedure Note Virgilio Mireles MD - 06/24/2024 EXAM: CT CERVICAL SPINE W/O CONTRAST LOCATION: [facility] DATE: 06/24/2024 INDICATION: Trauma, fall, pain COMPARISON: CT cervical spine 06/09/2024 none available for review TECHNIQUE: Routine CT Cervical Spine without IV contrast. Multiplanarreformats. Dose reduction techniques were used. FINDINGS: VERTEBRA: Normal vertebral body heights and alignment. No fracture orposttraumatic subluxation. CANAL/FORAMINA: No canal or neural foraminal stenosis. PARASPINAL: No extraspinal abnormality. IMPRESSION: 1. No acute cervical spine fracture. Mariela CRAIG CT ORDERABLES Final Result * EKG 12-lead, tracing only (06/24/2024 12:05 AM CDT) Systolic Blood Pressure mmHg RADIOLOGY RESULTS Diastolic Blood Pressure mmHg RADIOLOGY RESULTS Ventricular Rate 132 BPM RAD IOLOGY RESULTS Atrial Rate 132 BPM RADI[address] Y RESULTS CT Interval 140 ms RADIOLOG Y RESULTS QRS Duration 64 ms RADIOLO GY RESULTS QT 284 ms RADIOLOGY RESULTS QTc 420 ms RADIOLOGY RESULTS P Luttrell 82 degrees RADIOLOGY RESULTS R AXIS 56 degrees RADIOLOGY RESULTS T Luttrell 48 degrees RADIOLOGY RESULTS Interpretation ECG Sinus tachycardia Low voltage QRS Borderline ECG When compared with ECG of 19-Jun-2024 12:29, No significant change was found Confirmed by GENERATED REPORT, COMPUTER ([id number]), editor & co founder Daniel Monson ([id number]) on 06/24/2024 2:30:38 AM RADIOLOGY RESULTS 06/24/2024 12:0 5 AM CDT 06/24/2024 2:30 AM CDT us Mariela Herbert MD ECG ORDERABLES Edited Result - Final RADIOLOGY RESULTS documented in this encounter Visit Diagnoses Diagnosis Pain of right upper extremity Syncope, unspecified syncope type documented in this encounter Administered Medications Inactive Administered Medications - up to 3 most recent administrations Medication Order MAR Action Action Date Dose Rate Site HYDROmorphone (DILAUDID) tablet 2 mg 2 mg, Oral, ONCE, On 06/24/24 at 0630, For 1 dose $Given 06/24/2024 6:37 AM CDT 2 mg sodium chloride 0.9% BOLUS 1,000 mL Intravenous, 1,000 mL, ONCE, On 06/24/24 at 0355, For 1 dose $New Bag 06/24/2024 4:31 AM CDT 1,000 mLs documented in this encounter Active and Recently Administered Medications Times are shown in CDT. Scheduled Medication Order 06/22/2024 06/23/2024 06/24/2024 HYDROmorphone (DILAUDID) tablet 2 mg (COMPLETED) 2 mg, Oral, ONCE, On 06/24/24 at 0630, For 1 dose 0637 ($Given - Provi rosita: Michelle Viramontes RN) sodium chloride 0.9% BOLUS 1,000 mL (COMPLETED) Intravenous, 1,000 mL, ONCE, On 06/24/24 at 0355, For 1 dose 0431 ($New Bag - Pro vider: Kamryn Guerin RN)0625 (Stopped - Provider: Michelle Viramontes RN) 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 Assessment Noted Time PHQ-9 Depression Total Score: 4 02/21/20 24 1:54 PM CDT documented as of this encounter Care Teams Load Checker Relationship Specialty Start [place] [address] [address] [place] [address] PCP - General Family Medicine 04/22/23 [place] [address] [address] [address] Assigned Pain Medication Provider 12/07/22 [place] [address] [address] [address] Assigned PCP 01/23/23 [place] [address] [place] [address] Assigned Musculoskeletal Provider 01/23/23 09/19/24 Gregorio Dalton PA-C [address] [address] Assigned Surgical Provider 05/22/23 07/20/24 Kingsley Garcia MD [address] [place] [address] Assigned Heart and Vascular Provider 08/07/23 [place] [address] [address] [address] Family Medicine 09/10/23 Master Shea PA-C [address] [place] [address] Physician Art Therapy Specialist Gastroenterology 09/10/23 Allyssa Justice MD [facility] [address] [place] [address] [place] [address] Hematology & Oncology 12/10/23 Genaro Christian MD [address] [place] [address] Cardiovascular Disease 12/22/23 Master Shea PA-C [address] [place] [address] Assigned Gastroenterology Provider 12/23/23 Sienna Guillermo DO [address] [place] [address] Physician Cardiovascular Disease 01/18/24 Allyssa Justice MD [facility] [address] [place] [address] [place] [address] Assigned Cancer Care Provider 03/21/24 documented as of this encounter
--- OUTSIDE RECORDS SUMMARY | 2024-09-21 22:43 | XMS_ITS | Encounter Summary ---
Author Organization [facility] Address [address] [place] [address] Care Team Providers Care Hydrostatic Tester Name Role Phone Segundo Mcclelland MD Unavailable [phone] Segundo Mcclelland MD Unavailable [phone] Qamar Jackson MD Unavailable Segundo Mcclelland MD Primary Care Provider + Gregorio Dalton PA-C Unavailable [phone] Kingsley Garcia MD Unavailable [phone] Segundo Mcclelland MD Unavailable [phone] Master Shea PA-C Unavailable Allyssa Justice MD Unavailable [phone] Genaro Christian MD Unavailable [phone] Master Shea PA-C Unavailable Sienna Guillermo DO Unavailable [phone] Allyssa Justice MD Unavailable [phone] Encounter Details Date Type Department Care Team (Latest Contact Info) Description 06/25/2024 Travel Social History Tobacco Use Types Packs/Day [...] AM CDT 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 Gender Identity Female 05/26/2021 10:37 AM CDT [...] Info) Description 02/20/2025 10:20 AM CDT Appointment [facility] Imaging [address] [place] [address] Allyssa Justice MD [facility] [address] [place] [address] [place] [address] 02/27/2025 10:40 AM CDT Virtual Visit [facility] [address] [place] [address] [facility] [place] [phone] Allyssa Justice MD [facility] [address] [place] [address] [place] [address] documented as of this encounter Visit Diagnoses Not on file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 Assessment Noted Time PHQ-9 Depression Total Score: 4 02/21/20 24 1:54 PM CDT documented as of this encounter Care Teams Hydrostatic Tester Relationship Specialty Start [place] [address] [address] [address] PCP - General Family Medicine 04/22/23 [place] [address] [address] [address] Assigned Pain Medication Provider 12/07/22 [place] [address] [address] [address] Assigned PCP 01/23/23 [place] [address] [place] [address] Assigned Musculoskeletal Provider 01/23/23 09/19/24 Gregorio Dalton PA-C [address] [address] Assigned Surgical Provider 05/22/23 07/20/24 Kingsley Garcia MD [address] [place] [address] Assigned Heart and Vascular Provider 08/07/23 [place] [address] [place] [address] Family Medicine 09/10/23 Master Shea PA-C [address] [place] [address] Physician Gallery Manager Gastroenterology 09/10/23 Allyssa Justice MD [facility] [address] [place] [address] [place] [address] Hematology & Oncology 12/10/23 Genaro Christian MD [address] [place] [address] Cardiovascular Disease 12/22/23 Master Shea PA-C [address] [place] [address] Assigned Gastroenterology Provider 12/23/23 Sienna Guillermo DO [address] [place] [address] Physician Cardiovascular Disease 01/18/24 Allyssa Justice MD [facility] [address] [place] [address] [place] [address] Assigned Cancer Care Provider 03/21/24 documented as of this encounter
--- OUTSIDE RECORDS SUMMARY | 2024-09-21 22:43 | XMS_ITS | Encounter Summary ---
Author Organization [place] Address [address] [place] [address] Care Team Providers Care Helper Electrical Name Role Phone Segundo Mcclelland MD Unavailable [phone] Segundo Mcclelland MD Unavailable [phone] Qamar Jackson MD Unavailable Segundo Mcclelland MD Primary Care Provider + Gregorio Dalton PA-C Unavailable [phone] Kingsley Garcia MD Unavailable + [phone] Segundo Mcclelland MD Unavailable [phone] Master Shea PA-C Unavailable Allyssa Justice MD Unavailable [phone] Genaro Christian MD Unavailable [phone] Master Shea PA-C Unavailable Sienna Guillermo DO Unavailable [phone] Allyssa Justice MD Unavailable [phone] Encounter Details Date Type Department Care Team (Late st Contact Info) Description 06/22/2024 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 Of note, this patient has never been seen by any of our surgeons. She is scheduled to see me in clinic next week. Apparently she has severe gastroparesis and her primary is requesting a J tube. I told her that we will not do any procedure before meeting and discussing it with the patient. Sheis NOT scheduled for a J-tube next week, she is scheduled for a consultation. I told her that if she is unable to keep water down and she is getting dehydrated, she [facility], it does not need to be [facility]'s ED. Declan Leavitt M.D., F.A.C.S. [facility] [place] documented in this encounter Plan of Treatment Upcoming Encounters Date Type Department Care Team (Late st Contact Info) Description 02/20/2025 10:20 AM CDT Appointment [facility] Imaging [address] [place] [address] [place] [phone] Allyssa Justice MD [facility] [address] [place] [address] [place] [id number] 02/27/2025 10:40 AM CDT Virtual Visit [facility] [address], [place] [address] [facility] [place] [phone] Allyssa Justice MD [facility] [address] [place] [address] [place] [id number] documented as of this encounter Visit Diagnoses Not on file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 Assessment Noted Time PHQ-9 Depression Total Score: 4 02/21/20 24 1:54 PM CDT documented as of this encounter Care Teams Helper Electrical Relationship Specialty [place] [address] [place] [address] PCP - General Family Medicine 04/22/23 [place] [address] [place] [address] Assigned Pain Medication Provider 12/07/22 [place] [address] [place] [address] Assigned PCP 01/23/23 [place] [address] [place] [address] Assigned Musculoskeletal Provider 01/23/23 09/19/24 Gregorio Dalton PA-C [address] [place] [address] Assigned Surgical Provider 05/22/23 07/20/24 Kingsley Garcia MD [address] [place] [address] Assigned Heart and Vascular Provider 08/07/23 [place] [address] [place] [address] Family Medicine 09/10/23 Master Shea PA-C [address] [place] [address] Physician Member Service Representative Gastroenterology 09/10/23 Allyssa Justice MD [facility] [address] [place] [address] [place] [address] Hematology & Oncology 12/10/23 Genaro Christian MD [address] [place] [id number] Cardiovascular Disease 12/22/23 Master Shea PA-C [address] [place] [address] Assigned Gastroenterology Provider 12/23/23 Sienna Guillermo DO [address] [place] [address] Physician Cardiovascular Disease 01/18/24 Allyssa Justice MD [facility] [address] [place] [address] [place] [id number] Assigned Cancer Care Provider 03/21/24 documented as of this encounter
--- OUTSIDE RECORDS SUMMARY | 2024-09-21 22:43 | XMS_ITS | Encounter Summary ---
Author Organization [place] Address [address] [place] [address] Care Team Providers Care Lock Master Name Role Phone Segundo Mcclelland MD Unavailable [phone] Segundo Mcclelland MD Unavailable [phone] Qamar Jackson MD Unavailable Segundo Mcclelland MD Primary Care Provider + Gregorio Dalton PA-C Unavailable [phone] Kingsley Garcia MD Unavailable + [phone] Segundo Mcclelland MD Unavailable [phone] Master Shea PA-C Unavailable Allyssa Justice MD Unavailable [phone] Genaro Christian MD Unavailable [phone] Master Shea PA-C Unavailable Sienna Guillermo DO Unavailable [phone] Allyssa Justice MD Unavailable [phone] Reason for Visit * Reason Onset Date Comments Patient/info Update 06/22/2024 Encounter Details Date Type Department Care Team (Late st Contact Info) Description 06/22[facility]2024 [facility] [address] [facility] [phone] [place] [address] [facility] [place] [id number] Patient/info Update Social History Tobacco Use Types [...] AM CDT 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 Segundo Mcclelland MD * Telephone Encounter - Donato Argueta RN - 06/22/2024 12:41 PM CDT Received call from Me[facility] with [facility]. [place] location cannot do J-tube procedure.Patient can do this at their [place] location per the ER notes when patient was at ER [facility]. Schedulers will reach out to patient. Unsure when patient will be scheduled for this procedure. This is FYI to PCP. Donato Means RN 06/22/2024 at 12:43 PM documented in this encounter Plan of Treatment Upcoming Encounters Date Type Department Care Team (Late st Contact Info) Description 02/20/2025 10:20 AM CDT Appointment [facility] Imaging [address] [place] [address] [place] [phone] [facility] [address] [place] [address] [place] [address] 02/27/2025 10:40 AM CDT Virtual Visit [facility] [address] [place] [address] [facility] Medical Ctr [place] [phone] Allyssa Justice MD [facility] [address] [place] [address] [place] [address] documented as of this encounter Visit Diagnoses Not on file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 Assessment Noted Time PHQ-9 Depression Total Score: 4 02/21/20 24 1:54 PM CDT documented as of this encounter Care Teams Lock Master Relationship Specialty Start [place] [address] [place] [address] PCP - General Family Medicine 04/22/23 [place] [address] [place] [address] Assigned Pain Medication Provider 12/07/22 [place] [address] [place] [address] Assigned PCP 01/23/23 [place] [address] [place] [id number] Assigned Musculoskeletal Provider 01/23/23 09/19/24 Gregorio Dalton PA-C [address] [place] [address] Assigned Surgical Provider 05/22/23 07/20/24 Kingsley Garcia MD [address] [place] [address] Assigned Heart and Vascular Provider 08/07/23 [place] [address] [place] [address] Family Medicine 09/10/23 Master Shea PA-C [address] [facility] [place] [address] Physician Bread Room Hand Gastroenterology 09/10/[address] [facility] [address] [place] [address] [place] [address] Hematology & Oncology 12/10/23 Genaro Christian MD [address] [place] [address] Cardiovascular Disease 12/22/23 Master Shea PA-C [address] [place] [address] Assigned Gastroenterology Provider 12/23/23 Sienna Guillermo DO [address] [place] [address] Physician Cardiovascular Disease 01/18/[address] [facility] [address] [place] [address] [place] [address] Assigned Cancer Care Provider 03/21/24 documented as of this encounter
--- OUTSIDE RECORDS SUMMARY | 2024-09-21 22:43 | XMS_ITS | Encounter Summary ---
Author Organization [place] Address [address] [place] [address] Care Team Providers Care Admission Nurse Name Role Phone Segundo Mcclelland MD Unavailable [phone] Segundo Mcclelland MD Unavailable [phone] Qamar Jackson MD Unavailable Segundo Mcclelland MD Primary Care Provider + Gregorio Dalton PA-C Unavailable [phone] Kingsley Garcia MD Unavailable + [phone] Segundo Mcclelland MD Unavailable [phone] Master Shea PA-C Unavailable Allyssa Justice MD Unavailable [phone] Genaro Christian MD Unavailable [phone] Master Shea PA-C Unavailable Sienna Guillermo DO Unavailable [phone] Allyssa Justice MD Unavailable [phone] Reason for Visit * Reason Comments Syncope Encounter Details Date Type Department Care Team (Late st Contact Info) Description 06/25/2024 3:45 PM CDT - 06/25/2024 7:49 PM CDT Emergency [facility] Emergency Dept [address] [facility] [place] [id number] Santhosh Sánchez MD [facility] [address] [place] [address] Syncope, unspecified syncope type; Facial laceration, initial encounter; Dehydration Discharge Disposition: Home or Self Care Social [...] AM CDT 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 Gender Identity Female 05/26/2021 10:37 AM CDT Sexual Orientation Straight 05/26/2021 10 :37 AM CDT Occupation Industry Job Start Date Job End Date unemployed Not on file Not on file Not on file Not on file Not on file Not on file Not on file documented as of this encounter Last Filed Vital Signs Vital Sign Reading Time Taken Comments Blood Pressure 127/78 06/25/2024 7:00 PM CDT Pulse 100 06/25/2024 7:00 PM CDT Temperature 36.4 ??C (97.5 ??F) 06/25/2024 7:00 PM CD T Respiratory Rate 20 06/25/2024 7:00 PM CDT Oxygen Saturation 97% 06/25/2024 7:00 PM CDT Inhaled Oxygen Concentration - - Weight 102.1 kg (225 lb) 06/25/2024 3:47 PM CDT Height 167.6 cm (5' 6) 06/25/2024 7:45 PM CDT Body Mass Index 36.32 06/25/2024 3:47 PM CDT documented in this encounter Discharge Instructions * Attachments The following attachments cannot be sent through Care Everywhere. * Dehydration (Monegasque) * Lacerations (Monegasque) * Fainting (Monegasque) documented in this encounter Medications at Time [...] anxiety naloxone (NARCAN) 4 MG/0.1ML nasal spray [place] 4 mg into one nostril alternating nostrils once as needed for opioid reversal 06/28/2023 pantoprazole (PROTONIX) 40 MG EC tablet Take 40 mg by mouth daily sodium chloride 0.9% infusionIndication s:Gastroparesis Inject 1,000 mLs into the vein as needed for other (Wednesday with IV antibiotic) 22726 mL 06/02/2024 sucralfate (CARAFATE) 1 GM tabletIndications: [...] as of this encounter ED Notes * Anaid Mazariegos RN - 06/25/2024 5:51 PM CDT Pt requesting pain medication for neck and back pain. * Anaid Mazariegos RN - 06/25/2024 5:14 PM CDT IV fluids started, pt requesting home dose of PO dilaudid. aware, declining dose at this time. Pt made aware. * Anaid Mazariegos RN - 06/25/2024 4:05 PM CDT Pt urinated in bed, able to ambulate to bathroom for further evacuation of bladder/bowels. * Norma Horne RN - 06/25/2024 3:49 PM CDT Images from the original note were not included. Pt passed out in the bathroom, got a ride here with ex . Pt hit left cheek and has small wound, bleeding controlled. Triage Assessment (Adult) Row Name 06/25/24 1549 Triage Assessment Airway WDL WDL Respiratory WDL Respiratory WDL WDL Skin Circulation/Temperature WDL Skin Circulation/Temperature WDL X area on left cheek wound Cardiac WDL Cardiac WDL X tachy Peripheral/Neurovascular WDL Peripheral Neurovascular WDL WDL Cognitive/Neuro/Behavioral WDL Cognitive/Neuro/Behavioral WDL WDL * Norma Horne RN - 06/25/2024 3:46 PM CDT Bed: ED05 Expected date: Expected time: Means of arrival: Comments: Triage * Santhosh Sánchez MD - 06/25/2024 3:06 PM CDT Emergency Department Note History of Present Illness Chief Complaint Syncope HPI Sandi Lopez is a 38 year old female, anticoagulated (Eliquis), with a history of postural orthostatic tachycardia syndrome and anemia, presenting to the emergency department for evaluation ofa syncopal episode. The patient reports having a syncopal episode earlier today after standing up, resulting in her hitting her head, right flank, and right arm. She states that she is unable to takeany food by mouth due to gastroparesis which causes her to vomit anything she eats. She states she recently had her PICC line removed a few weeks ago following a syncopal episode, and that there is aplan in place to have a J-tube put in place. She states that following her syncopal episode today, she called her surgeon who told her to come into the emergency department. Independent Historian None Review of External Notes I reviewed the patient's emergency care plan Past Medical History Medical History and Problem List Anemia Atrial flutter Borderline personality disorder Continuous opioid dependence Depression Dysthymic disorder GERD Gastroparesis Hypertension Kidney stone Kathleen-medrano teat Asthma Obesity Osteomyelitis of lumbar spine Postural orthostatic [...] Talar fracture foot surgery Tonsillectomy and adenoidectomy Transesophageal echocardiogram intraoperative Tubal ligation Physical Exam Patient Vitals for the past 24 hrs: BP Temp Temp src Pulse Resp SpO2 Height Weight 06/25/24 1945 -- -- -- -- -- -- 1.676 m (5' 6) -- 06/25/24 1900 127/78 97.5 ??F (36.4 ??C) Temporal 100 20 97 % -- -- 06/25/24 1547 (!) 157/58 97.5 ??F (36.4 ??C) Temporal 110 22 100 % -- 102.1 kg (225 lb) Physical Exam General: Alert, No distress. Nontoxic appearance Head: V-shaped laceration to her left cheek which appears superficial. Mouth/Throat: Oropharynx moist. Eyes: Conjunctivae are normal. Pupils are equal.. Neck: Normal range of motion. CV: Appears well perfused. Resp:No respiratory distress. Abdomen: soft nontender nondistended MSK: Normal range of motion. No obvious [...] Sodium 137 Potassium 4.3 Carbon Dioxide (CO2) 25 Anion Gap 9 Urea Nitrogen 8.9 Creatinine 0.64 GFR Estimate >90 Calcium 8.8 Chloride 103 Glucose 96 Alkaline Phosphatase 193 (*) AST 38 ALT 44 Protein Total 7.5 Albumin 3.9 Bilirubin Total <0.2 CBC WITH PLATELETS AND DIFFERENTIAL - Abnormal WBC Count 6.8 RBC Count 3.65 (*) Hemoglobin 8.4 (*) Hematocrit 28.2 (*) MCV 77 (*) MCH 23.0 (*) MCHC 29.8 (*) RDW 19.6 (*) Platelet Count 456 (*) NRBCs per 100 WBC 0 Absolute NRBCs 0.0 RBC AND PLATELET MORPHOLOGY - Abnormal RBC Morphology Confirmed RBC Indices Platelet Assessment Value: Automated Count Confirmed. Platelet morphology is normal. Elliptocytes Slight (*) MANUAL DIFFERENTIAL % Neutrophils 61 % Lymphocytes 31 % Monocytes 5 % Eosinophils 3 % Basophils 0 Absolute Neutrophils 4.1 Absolute Lymphocytes 2.1 Absolute Monocytes 0.3 Absolute Eosinophils 0.2 Absolute Basophils 0.0 RBC Morphology Confirmed RBC Indices Platelet Assessment Value: Automated Count Confirmed. Platelet morphology is normal. Imaging No orders to display EKG ECG results from 06/25/24 EKG 12-lead, tracing only Value Systolic Blood Pressure Diastolic Blood Pressure Ventricular Rate 108 Atrial Rate 108 [place] Interval 152 QRS Duration 64 QT 328 QTc 439 P [place] 38 R AXIS 25 T [place] 37 Interpretation ECG Sinus tachycardia Low voltage QRS Cannot rule out Anterior infarct , age undetermined Abnormal ECG When compared with ECG of 24-Jun-2024 00:05, Minimal criteria for Anterior infarct are now Present Confirmed by GENERATED REPORT, COMPUTER ([id number]), art editor Daniel Monson ([id number]) on 06/25/2024 4:09:41 PM *Note: Due to a large number of results and/or encounters for the requested time period, some results have not been displayed. A complete set of results can be found in Results Review. Independent Interpretation None ED Course Medications Administered Medications HYDROmorphone (DILAUDID) tablet 2 mg (has no administration in time range) sodium chloride 0.9% BOLUS 1,000 mL (1,000 mLs Intravenous $New Bag 06/25/24 1711) Procedures Discussion of Management None ED Course ED Course as of 06/25/24 182 Ayleen Jun 25, 2024 1612 I obtained history and examined the patient as noted above. 1818 I spoke to the patient and applied Bacitracin on the patient's wound on her left cheek. Optional/Additional Documentation None Medical Decision Making / Diagnosis MDM Sandi Lopez is a 38 year old female who presents with a history and clinical exam consistent with syncope. While orthostatic hypotension was the most likely etiology given the history of thispatient, I considered a broad differential for their syncope today including cardiac arrythmia, ACS, aortic stenosis, HOCM, PE, orthostatic hypotension, drugs, situational, carotid hypersensitivity, seizure, TIA, stroke, vasovagal. She has no signs of a concerning etiology for syncope at this point. In addition,she has no family history of sudden , no chest pain, no seizure activity or post-ictal period, no murmur, and no signs of orthostasis in the ED, no focal neurologic symptoms, and nocomplaints of concerning headache. The workup in the ED is negative and the physical exam is re-assurring. Supportive outpatient management is therefore indicated. The patient's laceration over the left cheek is superficial. It was reapproximated and then coveredwith sterile dressing. The patient was given IV fluid bolus. She requested oral pain medication. She is a chronic pain patient. Disposition The patient was discharged. Diagnosis ICD-10-CM 1. Syncope, unspecified syncope type R55 2. Facial laceration, initial encounter S01.81XA 3. Dehydration E86.0 Discharge Medications New Prescriptions No medications on file Scribe Disclosure: IParesh, am serving as a scribe at 4:43 PM on 06/25/2024 to document services personally performed by Santhosh Sánchez MD based on my observations and the provider's statements to me. Santhosh Sánchez MD 06/25/24 [id number] documented in this encounter Plan of Treatment Upcoming Encounters Date Type Department Care Team (Late st Contact Info) Description 02/20/2025 10:20 AM CDT Appointment [facility] [address] [place] [phone] Allyssa Justice MD [facility] [address] [facility] [address] [place] [address] 02/27/2025 10:40 AM CDT Virtual Visit [facility] [address] [place] [address] [facility] [place] [address] Allyssa Justice MD [facility] [address] [place] [place] [address] documented as of this encounter Procedures Procedure Name Priority Date/Time Associated Diagnosis Comments MANUAL DIFFERENTIAL STAT 06/25/2024 5 :00 PM CDT RBC AND PLATELET MORPHOLOGY STAT 06/25/2024 5:00 PM CDT CBC WITH PLATELETS AND DIFFERENTIAL STAT 06/25/2024 5:00 PM CDT CBC WITH PLATELETS & DIFFERENTIAL STAT 06/25/2024 5:00 PM CDT COMPREHENSIVE METABOLIC PANEL STAT 06/25/2024 5:00 PM CDT EKG 12-LEAD, TRACING ONLY STAT 06/25/2024 3:58 PM CDT documented in this encounter Results * Manual Differential (06/25/2024 5:00 PM CDT) % Neutrophils 61 % [facility] 06/25/2024 5:37 PM CDT LABORATORY % Lymphocytes 31 % [facility] 06/25/2024 5:37 PM CDT LABORATORY % Monocytes 5 % [facility] 06/25/2024 5:37 PM CDT LABORATORY % Eosinophils 3 % [facility] 06/25/2024 5:37 PM CDT LABORATORY % Basophils 0 % [facility] 06/25/2024 5:37 PM CDT LABORATORY Absolute Neutrophils [...] Absolute Basophils 0.0 0.0 - 0.2 10e3/uL [facility] 06/25/2024 5:37 PM CDT LABORATORY RBC Morphology Confirmed RBC Indices [facility] 06/25/2024 5:37 PM CDT LABORATORY Platelet Assessment Automated Count Confirmed. Platelet morphology is normal. Automated Count Confirmed. Platelet morphology is normal. [facility] 06/25/2024 5:37 PM CDT LABORATORY Blood BLOOD SPECIMEN / Unknown Venipuncture / Unknown 06/25/2024 5:00 PM CDT 06/25/2024 5:06 PM CDT Santhosh Sánchez MD LAB - BLOOD ORDERABLES Final Result Performing Organization Address City/[facility]/ZIP Co de Phone Number LABORATORY [facility] [address] floor, [address] [place] [address], [place] [phone] * (ABNORMAL) RBC and Platelet Morphology (06/25/2024 5:00 PM CDT) [facility] RBC Morphology Confirmed RBC Indices 06/25/2024 5:37 PM CDT LABORATORY Platelet Assessment Automated Count Confirmed. Platelet morphology is normal. Automated Count Confirmed. Platelet morphology is normal. [facility] 06/25/2024 5:37 PM CDT LABORATORY Elliptocytes Slight(A) None Seen [facility] 06/25/2024 5:37 PM CDT LABORATORY Blood BLOOD SPECIMEN / Unknown Venipuncture / Unknown 06/25/2024 5:00 PM CDT 06/25/2024 5:06 PM CDT Santhosh Sánchez MD LAB - BLOOD ORDERABLES Final Result LABORATORY [facility] [address] 1[address] floor, [address] [place] [address], [place] [phone] * (ABNORMAL) CBC with platelets and differential (06/25/2024 5:00 PM CDT) WBC Count 6.8 4.0 - 11.0 10e3/uL 06/25/2024 5:37 PM CDT LABORATORY RBC Count 3.65(L) 3.80 - 5.20 10e6/uL 06/25/2024 5:37 PM CDT LABORATORY Hemoglobin 8.4(L) 11.7 - 15.7 g/dL 06/25/2024 5:37 PM CDT LABORATORY Hematocrit 28.2(L) 35.0 - 47.0 % 06/25/2024 5:37 PM CDT LABORATORY MCV 77(L) 78 - 100 fL 06/25/2024 5:37 PM CDT LABORATORY MCH 23.0(L) 26.5 - 33.0 pg 06/25/2024 5:37 PM CDT LABORATORY MCHC 29.8(L) 31.5 - 36.5 g/dL 06/25/2024 5:37 PM CDT LABORATORY RDW 19.6(H) 10.0 - 15.0 % 06/25/2024 5:37 PM CDT LABORATORY Platelet Count 456(H) 150 - 450 10e3/uL 06/25/2024 5:37 PM CDT LABORATORY NRBCs per 100 WBC 0 <1 /100 06/25/2024 5:37 PM CDT LABORATORY Absolute NRBCs 0.0 10e3/uL 06/25/2024 5:37 PM CDT LABORATORY Blood BLOOD SPECIMEN / Unknown Venipuncture / Unknown 06/25/2024 5:00 PM CDT 06/25/2024 5:06 PM CDT Santhosh Sánchez MD LAB - BLOOD ORDERABLES Final Result LABORATORY [facility] [address] floor, [address] [place] [address], [facility] [phone] * (ABNORMAL) Comprehensive metabolic panel (06/25/2024 5:00 PM CDT) Sodium 137 135 - 145 mmol/L 06/25/2024 5:38 PM CDT LABORATORY Potassium 4.3 3.4 - 5.3 mmol/L 06/25/2024 5:38 PM CDT LABORATORY Carbon Dioxide (CO2) 25 22 - 29 mmol/L 06/25/2024 5:38 PM CDT LABORATORY Anion Gap 9 7 - 15 mmol/L 06/25/2024 5:38 PM CDT LABORATORY Urea Nitrogen 8.9 6.0 - 20.0 mg/dL 06/25/2024 5:38 PM CDT LABORATORY Creatinine 0.64 0.51 - 0.95 mg/dL 06/25/2024 5:38 PM CDT LABORATORY GFR Estimate >90 >60 mL/min/1.7 3m2 06/25/2024 5:38 PM CDT LABORATORY Comment:eGFR calculated usin 2020 CKD-EPI equation. Calcium 8.8 8.8 - 10.4 mg/dL 06/25/2024 5:38 PM CDT LABORATORY Comment:Reference intervals for this test were updated on 06/13/2024 to reflect our healthy population more accurately. There may be differences in the flagging of prior results with similar values performed with this method. Those prior results can be interpreted in the context of the updated reference intervals. Chloride 103 98 - 107 mmol/L 06/25/2024 5:38 PM CDT LABORATORY Glucose 96 70 - 99 mg/dL 06/25/2024 5:38 PM CDT LABORATORY Alkaline Phosphatase 193(H) 40 - 150 U/L 06/25/2024 5:38 PM CDT LABORATORY AST 38 0 - 45 U/L 06/25/2024 5:38 PM CDT LABORATORY ALT 44 0 - 50 U/L 06/25/2024 5:38 PM CDT LABORATORY Protein Total 7.5 6.4 - 8.3 g/dL 06/25/2024 5:38 PM CDT LABORATORY Albumin 3.9 3.5 - 5.2 g/dL 06/25/2024 5:38 PM CDT LABORATORY Bilirubin Total <0.2 <=1.2 mg/dL 06/25/2024 5:38 PM CDT LABORATORY Blood BLOOD SPECIMEN / Unknown Venipuncture / Unknown 06/25/2024 5:00 PM CDT 06/25/2024 5:06 PM CDT Santhosh Sánchez MD LAB - BLOOD ORDERABLES Final Result LABORATORY [facility] [address] floor, [address] [place] [address], [facility] [phone] * EKG 12-lead, tracing only (06/25/2024 3:58 PM CDT) Systolic Blood Pressure mmHg RADIOLOGY RESULTS Diastolic Blood Pressure mmHg RADIOLOGY RESULTS Ventricular Rate 108 BPM RAD IOLOGY RESULTS Atrial Rate 108 BPM RADIOLOG Y RESULTS [place] Interval 152 ms RADIOLOG Y RESULTS QRS Duration 64 ms RADIOLO GY RESULTS QT 328 ms RADIOLOGY RESULTS QTc 439 ms RADIOLOGY RESULTS P [place] 38 degrees RADIOLOGY RESULTS R AXIS 25 degrees RADIOLOGY RESULTS T [place] 37 degrees RADIOLOGY RESULTS Interpretation ECG Sinus tachycardia Low voltage QRS Cannot rule out Anterior infarct , age undetermined Abnormal ECG When compared with ECG of 24-Jun-2024 00:05, Minimal criteria for Anterior infarct are now Present Confirmed by GENERATED REPORT, COMPUTER ([id number]), art editor Daniel Monson ([id number]) on 06/25/2024 4:09:41 PM RADIOLOGY RESULTS 06/25/2024 3:58 PM CDT 06/25/2024 4:09 PM CDT Nimo Carrasco MD ECG ORDERABLES Edited R esult - Final RADIOLOGY RESULTS documented in this encounter Visit Diagnoses Diagnosis Syncope, unspecified syncope type Facial laceration, initial encounter Dehydration documented in this encounter Administered Medications Inactive Administered Medications - up to 3 most recent administrations Medication Order MAR Action Action Date Dose Rate Site HYDROmorphone (DILAUDID) tablet 2 mg 2 mg, Oral, ONCE, On 06/25/24 at 1825, For 1 dose $Given 06/25/2024 6:32 PM CDT 2 mg sodium chloride 0.9% BOLUS 1,000 mL Intravenous, 1,000 mL, ONCE, On 06/25/24 at 1625, For 1 dose $New Bag 06/25/2024 5:11 PM CDT 1,000 mLs documented in this encounter Active and Recently Administered Medications Times are shown in CDT. Scheduled Medication Order 06/23/2024 06/24/2024 06/25/2024 HYDROmorphone (DILAUDID) tablet 2 mg (COMPLETED) 2 mg, Oral, ONCE, On 06/25/24 at 1825, For 1 dose 1832 ($Given - Provi rosita: Anaid Mazariegos RN) sodium chloride 0.9% BOLUS 1,000 mL (COMPLETED) Intravenous, 1,000 mL, ONCE, On 06/25/24 at 1625, For 1 dose 1711 ($New Bag - Pro vider: Anaid Mazariegos RN)[id number] (Stopped - Provider: Roseanna Cho RN) 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 Assessment Noted Time PHQ-9 Depression Total Score: 4 02/21/20 1:54 PM CDT documented as of this encounter Care Teams Admission Nurse Relationship Specialty Start [place] [address] [address] [place] [address] PCP - General Family Medicine 04/22/23 [place] [address] [address] [address] Assigned Pain Medication Provider 12/07/22 [place] [address] [address] [address] Assigned PCP 01/23/23 [place] [address] [address] [place] [place] [address] Assigned Musculoskeletal Provider 01/23/23 09/19/24 Gregorio Dalton PA-C [address] [address] Assigned Surgical Provider 05/22/23 07/20/24 Kingsley Garcia MD [address] [place] [address] Assigned Heart and Vascular Provider 08/07/23 [place] [address] [address] [address] Family Medicine 09/10/23 Master Shea PA-C [address] [place] [place] [address] Physician Transformer Tester Gastroenterology 09/10/23 Allyssa Justice MD [facility] [address] [place] [address] Hematology & Oncology 12/10/23 Genaro Christian MD [address] [place] [address] Cardiovascular Disease 12/22/23 Master Shea PA-C [address] [place] [address] [place] [address] Assigned Gastroenterology Provider 12/23/23 Sienna Guillermo DO [address] [place] [id number] Physician Cardiovascular Disease 01/18/24 Allyssa Justice MD [facility] [address] [facility] [place] [place] [address] Assigned Cancer Care Provider 03/21/24 documented as of this encounter
--- OUTSIDE RECORDS SUMMARY | 2024-09-21 22:43 | XMS_ITS | Encounter Summary ---
Author Organization [facility] [place] Address [address] [place] [address] Care Team Providers Care Button Maker Name Role Phone Segundo Mcclelland MD Unavailable [phone] Segundo Mcclelland MD Unavailable [phone] Qamar Jackson MD Unavailable Segundo Mcclelland MD Primary Care Provider + Gregorio Dalton PA-C Unavailable [phone] Kingsley Garcia MD Unavailable [phone] Segundo Mcclelland MD Unavailable [phone] Master Shea PA-C Unavailable Allyssa Justice MD Unavailable [phone] Genaro Christian MD Unavailable [phone] Master Shea PA-C Unavailable Sienna Guillermo DO Unavailable [phone] Allyssa Justice MD Unavailable [phone] Encounter Details Date Type Department Care Team (Late st Contact Info) Description 06/23/2024 [facility] [address] [address] [place] [address] [place] [id number] Social History Tobacco Use Types Packs/Day Years [...] AM CDT 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 Please let us know if there is anything furtherneeded at this time. Jolie Solomon RN on 06/26/2024 at 11:15 AM documented in this encounter Plan of Treatment Upcoming Encounters Date Type Department Care Team (Late st Contact Info) Description 02/20/2025 10:20 AM CDT Appointment [facility] [address] [place] [address] [place] [address] Allyssa Justice MD [facility] [address] [place] [address] 02/27/2025 10:40 AM CDT Virtual Visit [facility] [address] [facility] [place] [address] Allyssa Justice MD [facility] [address] [place] [address] documented as of this encounter Visit Diagnoses Not on file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 Assessment Noted Time PHQ-9 Depression Total Score: 4 02/21/20 24 1:54 PM CDT documented as of this encounter Care Teams Button Maker Relationship Specialty Start [place] [address] [address] [address] PCP - General Family Medicine 04/22/23 [place] [address] [address] [address] Assigned Pain Medication Provider 12/07/22 [place] [address] [place] [id number] Assigned PCP 01/23/23 [place] [address] [place] [id number] Assigned Musculoskeletal Provider 01/23/23 09/19/24 Gregorio Dalton PA-C [address] [address] Assigned Surgical Provider 05/22/23 07/20/24 Kingsley Garcia MD [address] [place] [address] Assigned Heart and Vascular Provider 08/07/23 [place] [address] [address] [address] Family Medicine 09/10/23 Master Shea PA-C [address] [place] [id number] Physician Director Technical Gastroenterology 09/10/23 Allyssa Justice MD [facility] [address] [place] [address] Hematology & Oncology 12/10/23 Genaro Christian MD [address] [place] [id number] Cardiovascular Disease 12/22/23 Master Shea PA-C [address] [place] [address] Assigned Gastroenterology Provider 12/23/23 Sienna Guillermo DO [address] [place] [address] Physician Cardiovascular Disease 01/18/24 Allyssa Justice MD [facility] [address] [place] [address] Assigned Cancer Care Provider 03/21/24 documented as of this encounter
--- OUTSIDE RECORDS SUMMARY | 2024-09-21 22:43 | XMS_ITS | Encounter Summary ---
Author Organization [facility] Address [address] [place] [address] Care Team Providers Care Oil And Gas Lease Pumper Name Role Phone Segundo Mcclelland MD Unavailable [phone] Segundo Mcclelland MD Unavailable [phone] Qamar Jackson MD Unavailable Segundo Mcclelland MD Primary Care Provider + Gregorio Dalton PA-C Unavailable [phone] Kingsley Garcia MD Unavailable + [phone] Segundo Mcclelland MD Unavailable [phone] Master Shea PA-C Unavailable Allyssa Justice MD Unavailable [phone] Genaro Christian MD Unavailable + [phone] Master Shea PA-C Unavailable Sienna Guillermo DO Unavailable [phone] Allyssa Justice MD Unavailable [phone] Encounter Details Date Type Department Care Team (Latest Contact Info) Description 06/23/2024 Travel Social History Tobacco Use Types Packs/Day [...] AM CDT 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 Gender Identity Female 05/26/2021 10:37 AM CDT [...] Info) Description 02/20/2025 10:20 AM CDT Appointment [facility] Imaging [address] [place] [address] Allyssa Justice MD [facility] [address] [place] [address] [place] [address] 02/27/2025 10:40 AM CDT Virtual Visit [facility] [address] [place] [address] [facility] Medical Ctr [place] [phone] Allyssa Justice MD [facility] [address] [place] [address] [place] [address] documented as of this encounter Visit Diagnoses Not on file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 Assessment Noted Time PHQ-9 Depression Total Score: 4 02/21/20 24 1:54 PM CDT documented as of this encounter Care Teams Oil And Gas Lease Pumper Relationship Specialty Start [place] [address] [address] [address] PCP - General Family Medicine 04/22/23 [place] [address] [address] [address] Assigned Pain Medication Provider 12/07/22 [place] [address] [address] [address] Assigned PCP 01/23/23 [place] [address] [address] [place] [address] Assigned Musculoskeletal Provider 01/23/23 09/19/24 Gregorio Dalton PA-C [address] [address] Assigned Surgical Provider 05/22/23 07/20/24 Kingsley Garcia MD [address] [place] [address] Assigned Heart and Vascular Provider 08/07/23 [place] [address] [place] [address] Family Medicine 09/10/23 Master Shea PA-C [address] [place] [address] Physician It Infrastructure Consultant Gastroenterology 09/10/23 Allyssa Justice MD [facility] [address] [place] [address] [place] [address] Hematology & Oncology 12/10/23 Genaro Christian MD [address] [place] [address] Cardiovascular Disease 12/22/23 Master Shea PA-C [address] [place] [address] Assigned Gastroenterology Provider 12/23/23 Sienna Guillermo DO [address] [place] [address] Physician Cardiovascular Disease 01/18/24 Allyssa Justice MD [facility] [address] [place] [address] [place] [address] Assigned Cancer Care Provider 03/21/24 documented as of this encounter
--- OUTSIDE RECORDS SUMMARY | 2024-09-21 22:43 | XMS_ITS | Encounter Summary ---
Author Organization [facility] Address [facility] [place] [address] Care Team Providers Care Chain Saw Driver Name Role Phone Segundo Mcclelland MD Unavailable [phone] Segundo Mcclelland MD Unavailable [phone] Qamar Jackson MD Unavailable Segundo Mcclelland MD Primary Care Provider + Gregorio Dalton PA-C Unavailable [phone] Kingsley Garcia MD Unavailable + [phone] Segundo Mcclelland MD Unavailable [phone] Master Shea PA-C Unavailable Allyssa Justice MD Unavailable [phone] Genaro Christian MD Unavailable [phone] Master Shea PA-C Unavailable Sienna Guillermo DO Unavailable [phone] Allyssa Justice MD Unavailable [phone] Reason for Visit * Reason Comments Consult New nausea and vomit ing, consult for J tube, * Consultation (Emergency: 1-2 Days) - Pending Review Specialty Diagnoses / Procedures Referred By Contzbigniew t Referred To Contact Surgery Diagnoses Intractable [place] and [place] [address] [place] [address] Phone: tel: fax: Referral ID Status Reason Start Date Expiration Date V isits Requested Visits Authorized [id number] Pending Review 06/19/2024 06/19/2025 1 1 Encounter Details Date Type Department Care Team (Late st Contact Info) Description 06/28/2024 10:30 AM CDT Office Visit [facility] [address] [place] [phone] Declan Leavitt MD [address] [place] [address] [place] [id number] Intractable nausea and vomiting Social History Tobacco Use Types Packs/Day Years [...] AM CDT 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 Gender Identity Female 05/26/2021 10:37 AM CDT Sexual Orientation Straight 05/26/2021 10 :37 AM CDT Occupation Industry Job Start Date Job End Date unemployed Not on file Not on file Not on file Not on file Not on file Not on file Not on file documented as of this encounter Last Filed Vital Signs Vital Sign Reading Time Taken Comments Blood Pressure 110/66 06/28/2024 10:49 AM CDT Pulse 123 06/28/2024 10:49 AM CDT Temperature - - Respiratory Rate - - Oxygen Saturation 100% 06/28/2024 10:49 AM CDT Inhaled Oxygen Concentration - - Weight 98.9 kg (218 lb) 06/28/2024 10:49 AM CDT PT reported Height 167.6 cm (5' 6) 06/28/2024 10:49 AM CDT PT reported Body Mass Index 35.19 06/28/2024 10:49 AM CDT documented in this encounter Progress Notes * Ashly Donnelly RN - 06/28/2024 10:30 AM CDT Patient had syncope episode when leaving the clinic today. BP: 106/83 O2: 98% Pulse: 108 Patient reported that syncope episodes are not new for her. She had one prior to appointment today due to the inability to eat or drink Patient transported to ER via wheelchair Patient did not want our services to contact anyone on her behalf. Ashly Donnelly RN-BSN * Declan Leavitt MD - 06/28/2024 10:30 AM CDT Surgery Consultation, [facility], MD Sandi Nathan Omar John Date of : 1985 Age: [age] year old PCP: Segundo Mcclelland [phone] Chief Complaint: Gastroparesis and inability to eat Pt was seen in consultation from Segundo Mcclelland. History of Present Illness: Sandi Lopez is a 38 year old female who presented who states that she has had severe gastroparesis caused by Ozempic. She is unable to keep water or food down which causes her to be in a continual state of dizziness which causes her to fall frequently. She is seen in the emergency department quite frequently because of this. She is a patient of Dr. Akbar Alvares, who has suggested that enteric feeds the help her. Of note she has had a number of gastric emptying studies ordered and none of them have been completed. I am being asked to consider placing a jejunostomy tube in her. This per the patient has been going on for a year. Looking at her weight history she was over 300 pounds a year ago. She has now dropped about 60-80 pounds down to low 200's and has maintained that weight. She is getting calories somehow. She has a history of multiple central venous access procedures that became complicated with some thought that she was manipulating them. Caution has been advised. PMH: Sandi Lopez has a past medical history of Abnormal Pap smear, Allergic rhinitis, Anemia (2011), Atrial flutter, Borderline personality disorder, Continuous opioid dependence, Depressive disorder, Drug-seeking behavior and Malingering, Dysthymic disorder, Eating disorder, Fertility problem (2010), Gastro-oesophageal reflux disease, Gastroparesis, H/o Seizure as child, History of bloodtransfusion, Hypertension (05/08/23), Intermittent asthma, Kidney stone, Kathleen-Mustafa tear, Mild persistent asthma, Obesity, Osteomyelitis of lumbar spine (2023), PICC (peripherally inserted central catheter) in place (04/11/2024), Postural orthostatic tachycardia syndrome (2004), Psychogenic nonepileptic seizure, PTSD (post-traumatic stress disorder), and Pulmonary embolism (04/24/2014). PSH: Sandi Lopez has a past surgical history that includes Talar fracture lt foot surgery (10/1998); CAUTERY OF CERVIX, CRYOCAUTERY (05/2004); colposcopy,loop electrd cervix excis (11/2004); Diagnostic pelvic laparoscopy (12/2005); ercp; tonsillectomy & adenoidectomy (1995); adenoidectomy (1996); Cholecystectomy; Cerclage cervical (10/30/2011); Cerclage cervical (10/30/2011); Esophagoscopy, gastroscopy, duodenoscopy (EGD), combined (11/23/2012); Hysterectomy vaginal (12/2017); IR PICC Placement > 5 Yrs of Age (12/24/2020); Insert Midline He (02/13/2016); appendectomy; Oophorectomy (Right); tubal ligation; Ankle surgery; Esophagoscopy, gastroscopy, duodenoscopy (EGD), combined(N/A, 02/13/2016); Esophagoscopy, gastroscopy, duodenoscopy (EGD), combined (N/A, 02/13/2016); Laryngoscopy (N/A, 02/14/2016); Transesophageal echocardiogram intraoperative (N/A, 09/17/2021); Esophagoscopy, gastroscopy, duodenoscopy (EGD), combined (N/A, 05/05/2023); colonoscopy (2013); back surgery (2018); Esophagoscopy, gastroscopy, duodenoscopy (EGD), combined (N/A, 06/11/2023); IR Chest Port Placement > 5 Yrs of Age (07/29/2023); Arthroscopy knee with lateral meniscectomy (Left, 08/11/2023); IR Port Removal Left (11/12/2023); Irrigation and debridement foot, combined (Right, 2023); Esophagoscopy, gastroscopy, duodenoscopy (EGD), combined (N/A, 12/07/2023); IR Chest Port Placement > 5 Yrs of Age (02/04/2024); IR Port Check Right (03/20/2024); IR Bone Biopsy Vertebral (03/15/2024); IR Lumbar Puncture (12/08/2012); IR PICC Placement > 5 Yrs of Age (06/25/2020); IR PICC Placement > 5 Yrs of Age (08/18/2016); IR Port Removal Right (04/07/2024); Remove port vascular access (N/A, 04/07/2024); Insert picc line (N/A, 04/11/2024); IR PICC Placement > 5 Yrs of Age (04/11/2024); and IR PICC Placement > 5 Yrs of Age (05/18/2024). Home medications and allergies reviewed. Social History: Sandi Lopez reports that she has never smoked. She has never been exposed to tobacco smoke. She has never used smokeless tobacco. She reports that she does not currently use alcohol. She reports that she does not use drugs. Family History: Sandi Lopez family history includes Breast Cancer in her mother; Cancer - colorectal in her paternal grandfather; Colon Cancer in her father; Depression in her father and mother; Diabetes in her paternal grandmother and another family member; Obesity in her father and mother; Other Cancer in her mother; Substance Abuse in her father. ROS: The 10 point Review of Systems is negative other than noted in the HPI. Physical Exam: Blood pressure 110/66, pulse (!) 123, height 1.676 m (5' 6), weight 98.9 kg (218 lb), last menstrual period 12/10/2017, SpO2 100%, not currently . 218 lbs 0 oz Patient in active distress, crying, almost falling when she got up out of the chair Pupils equal round and reactive to light. No cervical lymphadenopathy or thyromegaly. Lung starks clear, breathing comfortably. Heart normal sinus rhythm. No murmurs rubs or gallops. Abdomen soft, nontender, nondistended. Skin warm, dry. No obvious rashes or lesions. All new lab and imaging data was reviewed. Assessment and Plan: Sandi Lopez is a 38 year old female with nausea vomiting with eating presenting for consideration of enteric access. 1. Jejunostomy tubes have a high complication rate. Torsion of the small bowel causing obstruction,narrowing of the tube causing obstruction, leakage of intestinal contents either intra-abdominal heor out of the skin causing severe skin issues and pain, inability to replace them t if they fall out and if they fall out high risk of causing a surgical emergency. In my practice jejunostomy tube should only be placed if there is no other option. This patient has a stomach, which may not work well, and if any enteric tube is being considered to be placed using the stomach as a conduit would be much safer than the small intestine directly. A fluoroscopy placed tube through the gastrostomy tube into the jejunum beyond the ligament of Treitz will function like a jejunostomy tube without the above risk. I tried to explain this to the patient. She is very focused on doing something. 2. Numerous discussions about this patient were then had over the next 24 hours. These included with her primary Dr. Mcclelland, Dr. Malia Garrett from IR. Dr. Garrett said she was going to communicate to Dr. Alvares. Given that the risk of either a gastrostomy tube and or a jejunostomy tube is significant proving objective gastroparesis should be the next step. I have ordered a gastric motility study. If that shows gastroparesis the next step should be a naso- jejunal feeding tube. A NJ tube has much lower risk than a surgically placed or IR placed transabdominal tube. This should be the nextfeeding step if she has objective gastroparesis. If she fails the test because of vomiting or other issues it could be done with an NG tube in. 3. I spent 45 minutes either with the patient, reviewing her available past records, labs, imaging,or discussing with other physicians her care. Over 50% of the time was spent in direct education ofthe patient. Declan Leavitt M.D. [facility] [place] [phone] Please route or send letter to: Primary Care Provider (PCP) and Referring Provider documented in this encounter Plan of Treatment Upcoming Encounters Date Type Department Care Team (Late st Contact Info) Description 02/20/2025 10:20 AM CDT Appointment [facility] Imaging [address] [place] [address] Allyssa Justice MD [facility] [address] [place] [address] [place] [address] 02/27/2025 10:40 AM CDT Virtual Visit [facility] [address] [place] [address] [facility] Medical Ctr [place] [phone] Allyssa Justice MD [facility] [address] [place] [address] [place] [address] documented as of this encounter Visit Diagnoses Diagnosis Intractable nausea and vomiting Persistent vomiting 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 Assessment Noted Time PHQ-9 Depression Total Score: 4 02/21/20 1:54 PM CDT documented as of this encounter Care Teams Chain Saw Driver Relationship Specialty Start [place] [address] [place] [address] PCP - General Family Medicine 04/22/23 [place] [address] [place] [address] Assigned Pain Medication Provider 12/07/22 [place] [address] [place] [address] Assigned PCP 01/23/23 [place] [address] [facility] [address] [place] [address] Assigned Musculoskeletal Provider 01/23/23 09/19/24 Gregorio Dalton PA-C [address] [address] Assigned Surgical Provider 05/22/23 07/20/24 Kingsley Garcia MD [address] [place] [address] Assigned Heart and Vascular Provider 08/07/23 [place] [address] [address] [address] Family Medicine 09/10/23 Master Shea PA-C [address] [place] [address] Physician Log Yard Manager Gastroenterology 09/10/23 Allyssa Justice MD [facility] [address] [place] [address] [place] [address] Hematology & Oncology 12/10/23 Genaro Christian MD [address] [place] [address] Cardiovascular Disease 12/22/23 Master Shea PA-C [address] [place] [address] Assigned Gastroenterology Provider 12/23/23 Sienna Guillermo DO [address] [place] [address] Physician Cardiovascular Disease 01/18/24 Allyssa Justice MD [facility] [address] [place] [address] Assigned Cancer Care Provider 03/21/24 documented as of this encounter
--- OUTSIDE RECORDS SUMMARY | 2024-09-21 22:43 | XMS_ITS | Encounter Summary ---
Author Organization [facility] Address [address] [place] [address] Care Team Providers Care Medical Front Desk Specialist Name Role Phone Segundo Mcclelland MD Unavailable [phone] Segundo Mcclelland MD Unavailable [phone] Qamar Jackson MD Unavailable Segundo Mcclelland MD Primary Care Provider + Gregorio Dalton PA-C Unavailable [phone] Kingsley Garcia MD Unavailable + [phone] Segundo Mcclelland MD Unavailable [phone] Master Shea PA-C Unavailable Allyssa Justice MD Unavailable [phone] Genaro Christian MD Unavailable [phone] Master Shea PA-C Unavailable Sienna Guillermo DO Unavailable [phone] Allyssa Justice MD Unavailable [phone] Encounter Details Date Type Department Care Team (Latest Contact Info) Description 06/27/2024 Travel Social History Tobacco Use Types Packs/Day [...] AM CDT 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 [address] [place] [address] [facility] Medical Ctr [place] [phone] Allyssa Justice MD [facility] [address] [place] [address] [place] [address] documented as of this encounter Visit Diagnoses Not on file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 Assessment Noted Time PHQ-9 Depression Total Score: 4 02/21/20 24 1:54 PM CDT documented as of this encounter Care Teams Medical Front Desk Specialist Relationship Specialty Start [place] [address] [address] [address] PCP - General Family Medicine 04/22/23 [place] [address] [address] [address] Assigned Pain Medication Provider 12/07/22 [place] [address] [address] [address] Assigned PCP 01/23/23 [place] [address] [place] [address] Assigned Musculoskeletal Provider 01/23/23 09/19/24 Gregorio Dalton PA-C [address] [address] Assigned Surgical Provider 05/22/23 07/20/24 Kingsley Garcia MD [address] [place] [address] Assigned Heart and Vascular Provider 08/07/23 [place] [address] [place] [address] Family Medicine 09/10/23 Master Shea PA-C [address] [place] [address] Physician Regional Flatbed Truck Driver Gastroenterology 09/10/23 Allyssa Justice MD [facility] [address] [place] [address] [place] [address] Hematology & Oncology 12/10/23 Genaro Christian MD [address] [place] [address] Cardiovascular Disease 12/22/23 Master Shea PA-C [address] [place] [address] Assigned Gastroenterology Provider 12/23/23 Sienna Guillermo DO [address] [place] [address] Physician Cardiovascular Disease 01/18/24 Allyssa Justice MD [facility] [address] [place] [address] [place] [address] Assigned Cancer Care Provider 03/21/24 documented as of this encounter
--- OUTSIDE RECORDS SUMMARY | 2024-09-21 22:43 | XMS_ITS | Encounter Summary ---
Author Organization [facility] Address [address] [place] [address] Care Team Providers Care Moose Hunter Name Role Phone Segundo Mcclelland MD Unavailable [phone] Segundo Mcclelland MD Unavailable [phone] Qamar Jackson MD Unavailable Segundo Mcclelland MD Primary Care Provider + Gregorio Dalton PA-C Unavailable [phone] Kingsley Garcia MD Unavailable + [phone] Segundo Mcclelland MD Unavailable [phone] Master Shea PA-C Unavailable Allyssa Justice MD Unavailable [phone] Genaro Christian MD Unavailable [phone] Master Shea PA-C Unavailable Sienna Guillermo DO Unavailable [phone] Allyssa Justice MD Unavailable [phone] Declan Leavitt MD Unavailable Reason for Visit * Reason Onset Date Comments Physician Communication 06/26/2024 Encounter Details Date Type Department Care Team (Late st Contact Info) Description 06/26/2024 Telephone [facility] [address] [facility] [place] [address] [place] [address] [place] [address] Physician Communication Social History Tobacco Use Types [...] AM CDT 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 Mcclelland. She can be reached at [phone]. Routing to provider. Jolie Solomon RN on 06/26/2024 at 2:43 PM documented in this encounter Plan of Treatment Upcoming Encounters Date Type Department Care Team (Late st Contact Info) Description 02/20/2025 10:20 AM CDT Appointment [facility] Imaging [address] [place] [address] Allyssa Justice MD [facility] [address] [place] [address] [place] [address] 02/27/2025 10:40 AM CDT Virtual Visit [facility] [address] [facility] Medical Ctr [place] [phone] Allyssa Justice MD [facility] [address] [place] [address] [place] [address] documented as of this encounter Visit Diagnoses Not on file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 Assessment Noted Time PHQ-9 Depression Total Score: 4 02/21/20 24 1:54 PM CDT documented as of this encounter Care Teams Moose Hunter Relationship Specialty Start [place] [address] [address] [address] PCP - General Family Medicine 04/22/23 [place] [address] [address] [place] [address] Assigned Pain Medication Provider 12/07/22 [place] [address] [address] [address] Assigned PCP 01/23/23 [place] [address] [place] [address] Assigned Musculoskeletal Provider 01/23/23 09/19/24 Gregorio Dalton PA-C [address] [address] Assigned Surgical Provider 05/22/23 07/20/24 Kingsley Garcia MD [address] [place] [address] Assigned Heart and Vascular Provider 08/07/23 [place] [address] [address] [address] Family Medicine 09/10/23 Master Shea PA-C [address] [place] [address] Physician Turf Manager Gastroenterology 09/10/23 Allyssa Justice MD [facility] [address] [place] [address] [place] [address] Hematology & Oncology 12/10/23 Genaro Christian MD [address] [place], [place] [address] Cardiovascular Disease 12/22/23 Master Shea PA-C [address] [place] [address] Assigned Gastroenterology Provider 12/23/23 Sienna Guillermo DO [address] [place] [address] Physician Cardiovascular Disease 01/18/24 Allyssa Justice MD [facility] [address] [place] [address] [place] [address] Assigned Cancer Care Provider 03/21/24 Declan Leavitt MD [address] [place] [address] [place] [address] Assigned Surgical Provider 07/21/24 documented as of this encounter
--- OUTSIDE RECORDS SUMMARY | 2024-09-21 22:43 | XMS_ITS | Encounter Summary ---
Author Organization [place] Address [address] [place] [address] Care Team Providers Care Senior Program Planner Name Role Phone Segundo Mcclelland MD Unavailable [phone] Segundo Mcclelland MD Unavailable [phone] Qamar Jackson MD Unavailable Segundo Mcclelland MD Primary Care Provider + Gregorio Dalton PA-C Unavailable [phone] Kingsley Garcia MD Unavailable + [phone] Segundo Mcclelland MD Unavailable [phone] Master Shea PA-C Unavailable Allyssa Justice MD Unavailable [phone] Genaro Christian MD Unavailable Master Shea PA-C Unavailable Sienna Guillermo DO Unavailable [phone] Allyssa Justice MD Unavailable [phone] Reason for Visit * Reason Comments Syncope Encounter Details Date Type Department Care Team (Late st Contact Info) Description 06/28/2024 12:21 PM CDT - 06/28/2024 6:13 PM CDT Emergency [facility] Emergency Dept [address] [place] [address] Luisito Chopra MD [facility] [address] [place], [place] [id number] Syncope, unspecified syncope type Discharge Disposition: Home [...] AM CDT Legal Sex Female 3:29 AM API ARCHITECT Gender Identity Female 05/26/2021 10:37 AM CDT Sexual Orientation Straight 05/26/2021 10 :37 AM CDT Occupation Industry Job Start Date Job End Date unemployed Not on file Not on file Not on file Not on file Not on file Not on file Not on file documented as of this encounter Last Filed Vital Signs Vital Sign Reading Time Taken Comments Blood Pressure 121/84 06/28/2024 5:59 PM CDT Pulse 101 06/28/2024 5:59 PM CDT Temperature 36.9 ??C (98.4 ??F) 06/28/2024 12:27 PM C DT Respiratory Rate 16 06/28/2024 5:59 PM CDT Oxygen Saturation 100% 06/28/2024 5:59 PM CDT Inhaled Oxygen Concentration - - Weight - - Height - - Body Mass Index - - documented in this encounter Discharge Instructions * Discharge Instructions* Luisito Chopra MD - 06/28/2024 3:23 PM CDT Discharge Instructions Syncope Syncope (fainting) is a [...] anxiety naloxone (NARCAN) 4 MG/0.1ML nasal spray [place] 4 mg into one nostril alternating nostrils once as needed for opioid reversal 06/28/2023 pantoprazole (PROTONIX) 40 MG EC tablet Take 40 mg by mouth daily sodium chloride 0.9% infusionIndication s:Gastroparesis Inject 1,000 mLs into the vein as needed for other (Wednesday with IV antibiotic) 08556 mL 06/02/2024 sucralfate (CARAFATE) 1 GM tabletIndications: [...] as of this encounter Progress Notes * Gauri Palma RN - 06/28/2024 3:30 PM CDT VAT responds to ED page. ED MD has placed other line. documented in this encounter ED Notes * Karon Garcia RN - 06/28/2024 12:36 PM CDT Pt was at a surgery consult today when she passed out and hit the R side of her face on the wall. Pt was seated when this happened. Has long history of this. Pt is tearful Triage Assessment (Adult) Row Name 06/28/24 1236 Triage Assessment Airway WDL WDL Respiratory WDL Respiratory WDL WDL Skin Circulation/Temperature WDL Skin Circulation/Temperature WDL WDL Cardiac WDL Cardiac WDL WDL Peripheral/Neurovascular WDL Peripheral Neurovascular WDL WDL Cognitive/Neuro/Behavioral WDL Cognitive/Neuro/Behavioral WDL WDL [place] Coma Scale Best Eye Response 4-->(E4) spontaneous Best Motor Response 6-->(M6) obeys commands Best Verbal Response 5-->(V5) oriented Jody Coma Scale Score 15 * Luisito Chopra MD - 06/28/2024 11:29 AM CDT Emergency Department Note History of Present Illness Chief Complaint Syncope HPI Sandi Lopez is a 38 year old female with a history of recurrent syncope, GERD, atrial flutter, hypertension, obesity, and PTSD who presents to the ED for an evaluation of fainting. Patient reports that she was at her surgical consult regarding a GJ tube when she passed out and was sent downto the ED, as they were concerned with sending her home. Patient reports she previously had a picc line, which was taken out 3 weeks ago. She further reports fainting more often since then. She notesa few palpitations before passing out. She states she is unaccompanied and states that her ex- drove her here. Of note, she has been seen here multiple times for recurrent syncopal episodes. She states that she hit her face on the corner of the wall when she passed out today. Independent Historian None Review of External Notes I reviewed the discharge summary from 06/22/2024, as well as surgery clinic note from today 06/28/2024 I also reviewed the care plan from 06/10/24 Past Medical History Medical History and Problem List Abnormal Pap smear Allergic rhinitis Anemia Atrial flutter Borderline personality disorder Continuous opioid dependence Depressive disorder Drug-seeking behavior and Malingering Dysthymic disorder Eating disorder Fertility problem Gastro-oesophageal reflux disease Gastroparesis H/o Seizure as child History of blood transfusion Hypertension Intermittent asthma Kidney stone Kathleen-Mustafa tear Mild persistent asthma Obesity Osteomyelitis of lumbar spine PICC (peripherally inserted central catheter) in place Postural orthostatic tachycardia syndrome Psychogenic nonepileptic seizure PTSD (post-traumatic stress disorder) Pulmonary embolism Medications Eliquis Ferrous sulfate Fluconazole Folic acid Gabapentin Lorazepam Pantoprazole Sucralfate zolpidem Surgical History Past Surgical History: Procedure Laterality [...] Procedure: ESOPHAGOGASTRODUODENOSCOPY; Surgeon: Meg Lee MD; Location: [facility]; Service: ESOPHAGOSCOPY, GASTROSCOPY, DUODENOSCOPY (EGD), COMBINED N/A 02/13/2016 Procedure: ESOPHAGOGASTRODUODENOSCOPY; Surgeon: Meg Lee MD; Location: [facility] OR; Service: ESOPHAGOSCOPY, GASTROSCOPY, DUODENOSCOPY (EGD), COMBINED [...] picc line; Surgeon: Malia Garrett DO; Location: [facility] OR. DO NOT REMOVE WITHOUT IR CONSULT [...] CONTROLLED EPITAXIS; Surgeon: Declan Mata MD; Location: [facility] OR; Service: OOPHORECTOMY Right REMOVE PORT VASCULAR [...] BP Temp Temp src Pulse Resp SpO2 06/28/24 1759 121/84 -- -- 101 16 100 % 06/28/24 1611 124/86 -- -- 115 20 100 % 06/28/24 1600 -- -- -- 112 24 97 % 06/28/24 1500 -- -- -- 100 -- 99 % 06/28/24 1400 -- -- -- 105 18 98 % 06/28/24 1332 137/84 -- -- 113 14 99 % 06/28/24 1227 126/56 98.4 ??F (36.9 ??C) Temporal 104 16 100 % Physical Exam Nursing note and vitals reviewed. Constitutional: Oriented to person, place, and time. Cooperative. HENT: Nose: Nose normal. Mouth/Throat: Mucous membranes are normal. Eyes: Conjunctivae normal and EOM are normal. Pupils are equal, round, and reactive to light. Neck: Trachea normal. Cardiovascular: Normal rate, regular rhythm, normal heart sounds and normal pulses. No murmur heard. Pulmonary/Chest: Effort normal and breath sounds normal. Abdominal: Soft. Normal appearance and bowel sounds are normal. There is no tenderness. There is no rebound and no CVA tenderness. Musculoskeletal: Extremities atraumatic x 4. Lymphadenopathy: No cervical adenopathy. Neurological: Alert and oriented to person, place, and time. Normal strength. No cranial nerve deficit or sensory deficit. GCS eye subscore is 4. GCS verbal subscore is 5. GCS motor subscore is 6. Skin: Skin is intact. No rash noted. Psychiatric: Normal mood and affect. Diagnostics Lab Results Labs Ordered and Resulted from Time of ED Arrival to Time of ED Departure COMPREHENSIVE METABOLIC PANEL - Abnormal Result Value Sodium 134 (*) Potassium 4.1 Carbon Dioxide (CO2) 22 Anion Gap 11 Urea Nitrogen 14.2 Creatinine 0.65 GFR Estimate >90 Calcium 9.2 Chloride 101 Glucose 96 Alkaline Phosphatase 198 (*) AST 23 ALT 26 Protein Total 8.5 (*) Albumin 4.5 Bilirubin Total 0.2 CBC WITH PLATELETS AND DIFFERENTIAL - Abnormal WBC Count 7.4 RBC Count 4.04 Hemoglobin 9.4 (*) Hematocrit 31.0 (*) MCV 77 (*) MCH 23.3 (*) MCHC 30.3 (*) RDW 19.5 (*) Platelet Count 448 % Neutrophils 63 % Lymphocytes 30 % Monocytes 7 % Eosinophils 1 % Basophils 0 % Immature Granulocytes 0 NRBCs per 100 WBC 0 Absolute Neutrophils 4.6 Absolute Lymphocytes 2.2 Absolute Monocytes 0.5 Absolute Eosinophils 0.1 Absolute Basophils 0.0 Absolute Immature Granulocytes 0.0 Absolute NRBCs 0.0 LIPASE - Normal Lipase 58 TROPONIN T, HIGH SENSITIVITY - Normal Troponin T, High Sensitivity <6 MAGNESIUM - Normal Magnesium 2.1 Imaging No orders to display EKG ECG taken at 1232, ECG read at 1235 Sinus tachycardia Low voltage QRS Borderline ECG No change as compared to prior, dated 06/17/24. Rate 111 bpm. MA interval 146 ms. QRS duration 68 ms. QT/QTc 326/443 ms. P-R-T axes 65 84 57. Independent Interpretation None ED Course Medications Administered Medications sodium chloride 0.9% BOLUS 1,000 mL (0 mLs Intravenous Stopped 06/28/24 1709) HYDROmorphone (DILAUDID) tablet 2 mg (2 mg Oral $Given 06/28/24 1505) diphenhydrAMINE (BENADRYL) injection 25 mg (25 mg Intravenous $Given 06/28/24 1606) albuterol (PROVENTIL) neb solution 2.5 mg (2.5 mg Nebulization $Given 06/28/24 165) Procedures Procedures EJ peripheral IV placement: After prepping the area with a ChloraPrep, I placed a 20-gauge peripheral IV in the left EJ without difficulty or complication. Discussion of Management None ED Course ED Course as of 06/28/24 1826 WedJun 28, 2024 1228 I obtained history and examined the patient as noted above. 1750 I rechecked and updated the patient. Optional/Additional Documentation None Medical Decision Making / Diagnosis [facility] Diagnoses: None MIPS None MDM Sandi Lopez is a 38 year old female who was brought down from the surgery clinic after she had a syncopal episode. She actually was seen here yesterday and has been seen multiple times recently for similar presentations. I felt it was reasonable to check the above blood work and EKG and provide her IV fluids to ensure there was nothing new today. Her workup here does not appear to show anything new. Unfortunately, they had difficulty obtaining IV access. Therefore I placed a left EJ peripheral IV myself per the above procedure note. She was then provided a liter of IV fluids. She alsowas provided 1 oral dose of Dilaudid per her care plan. Later on, the nurse indicated that she was c omplaining of tightness in her chest and an itchy chest after I placed the IV, claiming it was froman allergic reaction to the ChloraPrep that I used. She was then provided an oral dose of Benadryl.She then claimed that she was having trouble breathing, and when I went to check on her, she was acting like she was having trouble breathing. However she had normal oxygen saturation levels and normal lung exam. Nonetheless, I agreed to provide her an albuterol nebulizer treatment. When I went to check on her again, she seemed improved but at this point was requesting an IV dose of Benadryl for an itchy tongue. She did not have any abnormal findings on exam at this point either, and I indicated that I could not provide her an IV dose of Benadryl. She then requested whether or not I could getin touch with IR to have a G-tube placed. I indicated that was not something we could do from the ER for an elective procedure such as that. At this point I do not feel anything else needs to be done, and I feel that she is safe for discharge and continued outpatient management. Disposition The patient was discharged. Diagnosis ICD-10-CM 1. Syncope, unspecified syncope type R55 Discharge Medications Discharge Medication List as of 06/28/2024 5:50 PM Scribe Disclosure: I, Carina Harmon, am serving as a scribe at 12:26 PM on 06/28/2024 to document services personallyperformed by Luisito Chopra MD based on my observations and the provider's statements to me. Luisito Chopra MD 06/28/24 1828 documented in this encounter Plan of Treatment Upcoming Encounters Date Type Department Care Team (Late st Contact Info) Description 02/20/2025 10:20 AM CDT Appointment [facility] Imaging [address] [place] [phone] Allyssa Justice MD [facility] [address] [place] [address] [place] [address] 02/27/2025 10:40 AM CDT Virtual Visit [facility] [address], [place] [address] [facility] [place] [phone] Allyssa Justice MD [facility] [address] [place] [address] [place] [id number] documented as of this encounter Procedures Procedure Name Priority Date/Time Associated Diagnosis Comments EXTRA TUBE STAT 06/28/2024 2:27 PM CDT EXTRA BLUE TOP TUBE STAT 06/28/2024 2 :27 PM CDT CBC WITH PLATELETS AND DIFFERENTIAL STAT 06/28/2024 2:27 PM CDT TROPONIN T, HIGH SENSITIVITY STAT 06/28/2024 2:27 PM CDT CBC WITH PLATELETS & DIFFERENTIAL STAT 06/28/2024 2:27 PM CDT MAGNESIUM STAT 06/28/2024 2:27 PM CDT LIPASE STAT 06/28/2024 2:27 PM CDT COMPREHENSIVE METABOLIC PANEL STAT 06/28/2024 2:27 PM CDT EKG 12-LEAD, TRACING ONLY STAT 06/28/2024 12:32 PM CDT documented in this encounter Results * Extra Blue Top Tube (06/28/2024 2:27 PM CDT) [facility] Hold Specimen [facility] 06/28/2024 3:31 PM CDT LABORATORY Blood BLOOD SPECIMEN / Unknown Venipuncture / Unknown 06/28/2024 2:27 PM CDT 06/28/2024 2:30 PM CDT us Luisito Chopra MD LAB - BLOOD ORDERABLES Lalita lico Result LABORATORY [facility] Acute Care Lab [address] floor, [address] [place] [address], [place] [phone] * (ABNORMAL) CBC with platelets and differential (06/28/2024 2:27 PM CDT) [facility] WBC Count 7.4 4.0 - 11.0 10e3/uL 06/28/2024 2:38 PM CDT LABORATORY RBC Count 4.04 3.80 - 5.20 10e6/uL 06/28/2024 2:38 PM CDT LABORATORY Hemoglobin 9.4(L) 11.7 - 15.7 g/dL 06/28/2024 2:38 PM CDT LABORATORY Hematocrit 31.0(L) 35.0 - 47.0 % 06/28/2024 2:38 PM CDT LABORATORY MCV 77(L) 78 - 100 fL 06/28/2024 2:38 PM CDT LABORATORY MCH 23.3(L) 26.5 - 33.0 pg 06/28/2024 2:38 PM CDT LABORATORY MCHC 30.3(L) 31.5 - 36.5 g/dL 06/28/2024 2:38 PM CDT LABORATORY RDW 19.5(H) 10.0 - 15.0 % 06/28/2024 2:38 PM CDT LABORATORY Platelet Count 448 150 - 450 10e3/uL 06/28/2024 2:38 PM CDT LABORATORY % Neutrophils 63 % 06/28/2024 2:38 PM CDT LABORATORY % Lymphocytes 30 % 06/28/2024 2:38 PM CDT LABORATORY % Monocytes 7 % 06/28/2024 2:38 PM CDT LABORATORY % Eosinophils 1 % 06/28/2024 2:38 PM CDT LABORATORY % Basophils 0 % 06/28/2024 2:38 PM CDT LABORATORY % Immature Granulocytes 0 % 06/28/2024 2:38 PM CDT LABORATORY NRBCs per 100 WBC 0 <1 /100 024 2:38 PM CDT LABORATORY Absolute Neutrophils 4.6 1.6 - 8.3 10e3/uL 06/28/2024 2:38 PM CDT LABORATORY Absolute Lymphocytes 2.2 0.8 - 5.3 10e3/uL 06/28/2024 2:38 PM CDT LABORATORY Absolute Monocytes 0.5 0.0 - 1.3 10e3/uL 06/28/2024 2:38 PM CDT LABORATORY Absolute Eosinophils 0.1 0.0 - 0.7 10e3/uL 06/28/2024 2:38 PM CDT LABORATORY Absolute Basophils 0.0 0.0 - 0.2 10e3/uL 06/28/2024 2:38 PM CDT LABORATORY Absolute Immature Granulocytes 0.0 <=0.4 10e3/uL 06/28/2024 2:38 PM CDT LABORATORY Absolute NRBCs 0.0 10e3/uL 06/28/2024 2:38 PM CDT LABORATORY Blood BLOOD SPECIMEN / Unknown Venipuncture / Unknown 06/28/2024 2:27 PM CDT 06/28/2024 2:30 PM CDT Luisito Chopra MD LAB - BLOOD ORDERABLES Lalita l Result [facility] Acute Care Lab [address], [address] [place] [address], [facility] [phone] * Magnesium (06/28/2024 2:27 PM CDT) [facility] Magnesium 2.1 1.7 - 2.3 mg/dL 06/28/2024 3:06 PM CDT LABORATORY Blood BLOOD SPECIMEN / Unknown Venipuncture / Unknown 06/28/2024 2:27 PM CDT 06/28/2024 2:30 PM CDT Luisito Chopra MD LAB - BLOOD ORDERABLES Lalita l Result [facility] LABORATORY [facility] Lab [address], [address] [place] [address], [facility] [phone] * Troponin T, High Sensitivity (06/28/2024 2:27 PM CDT) Troponin T, High Sensitivity <6 <=14 ng/L 06/28/2024 3:06 PM CDT LABORATORY Comment: Either a High Sensitivity [...] BLOOD ORDERABLES Lalita l Result LABORATORY [facility] Lab [address], [address] [place] [address], [facility] [phone] * Lipase (06/28/2024 2:27 PM CDT) Lipase 58 13 - 60 U/L 06/28/2024 3:06 PM CDT LABORATORY Blood BLOOD SPECIMEN / Unknown Venipuncture / Unknown 06/28/2024 2:27 PM CDT 06/28/2024 2:30 PM CDT Luisito H Keysha DICKSON LAB - BLOOD ORDERABLES Lalita barfield Result LABORATORY [facility] Acute Care Lab [address], [address] [place] [address], [facility] [phone] * (ABNORMAL) Comprehensive metabolic panel (06/28/2024 2:27 PM CDT) Sodium 134(L) 135 - 145 mmol/L 06/28/2024 3:10 PM CDT LABORATORY Potassium 4.1 3.4 - 5.3 mmol/L 06/28/2024 3:10 PM CDT LABORATORY Carbon Dioxide (CO2) 22 22 - 29 mmol/L 06/28/2024 3:10 PM CDT LABORATORY Anion Gap 11 7 - 15 mmol/L 06/28/2024 3:10 PM CDT LABORATORY Urea Nitrogen 14.2 6.0 - 20.0 mg/dL 06/28/2024 3:10 PM CDT LABORATORY Creatinine 0.65 0.51 - 0.95 mg/dL 06/28/2024 3:10 PM CDT LABORATORY GFR Estimate >90 >60 mL/min/1.7 3m2 06/28/2024 3:10 PM CDT LABORATORY Comment:eGFR calculated usin 2020 CKD-EPI equation. Calcium 9.2 8.8 - 10.4 mg/dL 06/28/2024 3:10 PM CDT LABORATORY Comment:Reference intervals for this test were updated on 06/13/2024 to reflect our healthy population more accurately. There may be differences in the flagging of prior results with similar values performed with this method. Those prior results can be interpreted in the context of the updated reference intervals. Chloride 101 98 - 107 mmol/L 06/28/2024 3:10 PM CDT LABORATORY Glucose 96 70 - 99 mg/dL 06/28/2024 3:10 PM CDT LABORATORY Alkaline Phosphatase 198(H) 40 - 150 U/L 06/28/2024 3:10 PM CDT LABORATORY AST 23 0 - 45 U/L 06/28/2024 3:10 PM CDT LABORATORY ALT 26 0 - 50 U/L 06/28/2024 3:10 PM CDT LABORATORY Protein Total 8.5(H) 6.4 - 8.3 g/dL 06/28/2024 3:10 PM CDT LABORATORY Albumin 4.5 3.5 - 5.2 g/dL 06/28/2024 3:10 PM CDT LABORATORY Bilirubin Total 0.2 <=1.2 mg/dL 06/28/2024 3:10 PM CDT LABORATORY Blood BLOOD SPECIMEN / Unknown Venipuncture / Unknown 06/28/2024 2:27 PM CDT 06/28/2024 2:30 PM CDT Luisito Chopra MD LAB - BLOOD ORDERABLES Lalita l Result LABORATORY [facility] Acute Care Lab [address], [address] [place] [address], [facility] [phone] * EKG 12-lead, tracing only (06/28/2024 12:32 PM CDT) Systolic Blood Pressure mmHg RADIOLOGY RESULTS Diastolic Blood Pressure mmHg RADIOLOGY RESULTS Ventricular Rate 111 BPM RAD IOLOGY RESULTS Atrial Rate 111 BPM RADIOLOG Y RESULTS MA Interval 146 ms RADIOLOG Y RESULTS QRS Duration 68 ms RADIOLO GY RESULTS QT 326 ms RADIOLOGY RESULTS QTc 443 ms RADIOLOGY RESULTS P [place] 65 degrees RADIOLOGY RESULTS R AXIS 84 degrees RADIOLOGY RESULTS T [place] 57 degrees RADIOLOGY RESULTS Interpretation ECG Sinus tachycardia Low voltage QRS Borderline ECG When compared with ECG of 27-Jun-2024 11:58, No significant change was found Confirmed by GENERATED REPORT, COMPUTER ([id number]), online editor Carlos Bruner ([id number]) on 06/28/2024 8:39:18 PM RADIOLOGY RESULTS 06/28/2024 12:3 2 PM CDT 06/28/2024 8:39 PM CDT Luisito Chopra MD ECG ORDERABLES Edited Resu lt - Final RADIOLOGY RESULTS documented in this encounter Visit Diagnoses Diagnosis Syncope, unspecified syncope type documented in this encounter Administered Medications Inactive Administered Medications - up to 3 most recent administrations Medication Order MAR Action Action Date Dose Rate Site albuterol (PROVENTIL) neb solution 2.5 mg 2.5 mg, Nebulization, ONCE PRN, shortness of breath, Starting on Wed06/28/24 at 1653, For 1 dose $Given 06/28/2024 4:58 PM CDT 2.5 mg diphenhydrAMINE (BENADRYL) injection 25 mg 25 mg, Intravenous, ONCE, On Wed06/28/24 at 1605, For 1 dose $Given 06/28/2024 4:06 PM CDT 25 mg HYDROmorphone (DILAUDID) tablet 2 mg 2 mg, Oral, ONCE, On Wed06/28/24 at 1425, For 1 dose $Given 06/28/2024 3:05 PM CDT 2 mg sodium chloride 0.9% BOLUS 1,000 mL Intravenous, 1,000 mL, ONCE, at 1,000 mL/hr, Administer over 1 Hours, On Wed06/28/24 at 1235, For 1 dose $New Bag 06/28/2024 3:27 PM CDT 1,000 mLs 1000 mL/hr documented in this encounter Active and Recently Administered Medications Times are shown in CDT. Scheduled Medication Order 06/26/2024 06/27/2024 06/28/2024 diphenhydrAMINE (BENADRYL) injection 25 mg (COMPLETED) 25 mg, Intravenous, ONCE, On Wed06/28/24 at 1605, For 1 dose 1606 ($Given - Provi rosita: Seth Field RN - Comment: Scanner not working) HYDROmorphone (DILAUDID) tablet 2 mg (COMPLETED) 2 mg, Oral, ONCE, On Wed06/28/24 at 1425, For 1 dose 1505 ($Given - Provi rosita: Seth Field RN - Comment: Scanner in room not working) sodium chloride 0.9% BOLUS 1,000 mL (COMPLETED) Intravenous, 1,000 mL, ONCE, at 1,000 mL/hr, Administer over 1 Hours, On Wed06/28/24 at 1235, For 1 dose 1527 ($New Bag - Pro vider: Seth Field RN - Comment: unable to get IV access)1709 (Stopped - Provider: Seth Field RN) PRN Medication Order 06/26/2024 06/27/2024 06/28/2024 albuterol (PROVENTIL) neb solution 2.5 mg (COMPLETED) 2.5 mg, Nebulization, ONCE PRN, shortness of breath, Starting on Wed06/28/24 at 1653, For 1 dose 1658 ($Given - Provi rosita: Seth Field RN - Comment: Scanner not working) 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 Assessment Noted Time PHQ-9 Depression Total Score: 4 02/21/20 24 1:54 PM CDT documented as of this encounter Care Teams Senior Program Planner Relationship Specialty Start [place] [address] [address] PCP - General Family Medicine 04/22/23 [place] [address] [address] Assigned Pain Medication Provider 12/07/22 [place] [address] [address] Assigned PCP 01/23/23 [place] [address] [place] [address] Assigned Musculoskeletal Provider 01/23/23 09/19/24 Gregorio Dalton PA-C [address] [address] Assigned Surgical Provider 05/22/23 07/20/24 Kingsley Garcia MD [address] [place] [address] Assigned Heart and Vascular Provider 08/07/23 [place] [address] [place] [address] Family Medicine 09/10/23 Master Shea PA-C [address] [place] [address] Physician Freight Unloader Gastroenterology 09/10/23 Allyssa Justice MD [facility] [address] [place] [address] [place] [address] Hematology & Oncology 12/10/23 Genaro Christian MD [address] [place] [id number] Cardiovascular Disease 12/22/23 Master Shea PA-C [address] [place] [address] Assigned Gastroenterology Provider 12/23/23 Sienna Guillermo DO [address] [place] [address] Physician Cardiovascular Disease 01/18/24 Allyssa Justice MD [facility] [address] [place] [address] Assigned Cancer Care Provider 03/21/24 documented as of this encounter
--- OUTSIDE RECORDS SUMMARY | 2024-09-21 22:43 | XMS_ITS | Encounter Summary ---
Author Organization [facility] Address [address] [place] [id number] Care Team Providers Care Florist Manager Name Role Phone Segundo Mcclelland MD Unavailable [phone] Segundo Mcclelland MD Unavailable [phone] Qamar Jackson MD Unavailable Segundo Mcclelland MD Primary Care Provider + Gregorio [facility] PA-C Unavailable [phone] Kingsley Garcia MD Unavailable + [phone] Segundo Mcclelland MD Unavailable [phone] Master Shea PA-C Unavailable Allyssa Justice MD Unavailable [phone] Genaro Christian MD Unavailable [phone] Master Shea PA-C Unavailable Sienna Guillermo DO Unavailable [phone] Allyssa Justice MD Unavailable [phone] Reason for Visit * Reason Comments Syncope Encounter Details Date Type Department Care Team (Late st Contact Info) Description 06/27/2024 11:26 AM CDT - 06/27/2024 6:28 PM CDT Emergency [facility] Emergency Dept [address] [place] [phone] Segundo Quick MD [facility] [address] [place] [address] Bess Barajas MD [facility] [address] [place], [place] [id number] Syncope and collapse Discharge Disposition: Home or Self Care Social [...] CDT 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 Gender Identity Female 05/26/2021 10:37 AM CDT Sexual Orientation Straight 05/26/2021 10 :37 AM CDT Occupation Industry Job Start Date Job End Date unemployed Not on file Not on file Not on file Not on file Not on file Not on file Not on file documented as of this encounter Last Filed Vital Signs Vital Sign Reading Time Taken Comments Blood Pressure 132/91 06/27/2024 6:05 PM CDT Pulse 124 06/27/2024 6:06 PM CDT Temperature 36.9 ??C (98.4 ??F) 06/27/2024 11:33 AM C DT Respiratory Rate 26 06/27/2024 6:05 PM CDT Oxygen Saturation 99% 06/27/2024 6:05 PM CDT Inhaled Oxygen Concentration - - Weight 98.9 kg (218 lb) 06/27/2024 11:33 AM CDT Height 167.6 cm (5' 6) 06/27/2024 11:33 AM CDT Body Mass Index 35.19 06/27/2024 11:33 AM CDT documented in this encounter Discharge Instructions * Discharge Instructions* Sam Botello PA-C - 06/27/2024 5:56 PM CDT Thank you for coming to [facility] department. Is important to keep your appointment tomorrow with your surgeon to discuss the G-tube placement. Please return to the emergency department should you experience any worsening symptoms or any other concerns. documented in this encounter Medications at [...] anxiety naloxone (NARCAN) 4 MG/0.1ML nasal spray [place] 4 mg into one nostril alternating nostrils once as needed for opioid reversal 06/28/2023 pantoprazole (PROTONIX) 40 MG EC tablet Take 40 mg by mouth daily sodium chloride 0.9% infusionIndication s:Gastroparesis Inject 1,000 mLs into the vein as needed for other (Wednesday with IV antibiotic) 65556 mL 06/02/2024 sucralfate (CARAFATE) 1 GM tabletIndications: [...] as of this encounter ED Notes * Marjorie Moya RN - 06/27/2024 2:56 PM CDT Patient was on commode with ERT next to her. She wiped after going to the bathroom and then fell over slowly over to the side, possibly having another syncope episode? The ERT reports she was awake for the entire event. The patient states she hit her head slightly on the linen closet, otherwise no new injuries. She was able to get herself up and back into the bed afterwards. MD updated. Vitals done. * Norma Horne RN - 06/27/2024 1:55 PM CDT Bed: ED25 Expected date: Expected time: Means of arrival: Comments: Triage * Jacquelyn Mallory RN - 06/27/2024 11:36 AM CDT Images from the original note were not included. Syncopal episode at 1030 this morning. Believes she hit the right side of her head/face/jaw. Had a syncopal episode last Wednesday as well. 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 Shehas been unable to eat/vomiting. Triage Assessment (Adult) Row Name 06/27/24 1135 Triage Assessment Airway WDL WDL Respiratory WDL Respiratory WDL WDL Skin Circulation/Temperature WDL Skin Circulation/Temperature WDL WDL Cardiac WDL Cardiac WDL X tachycardia Peripheral/Neurovascular WDL Peripheral Neurovascular WDL WDL Cognitive/Neuro/Behavioral WDL Cognitive/Neuro/Behavioral WDL X syncopal episode at 1030 this morning. Pupils (CN II) Pupil PERRLA yes [place] Coma Scale Best Eye Response 4-->(E4) spontaneous Best Motor Response 6-->(M6) obeys commands Best Verbal Response 5-->(V5) oriented Dingle Coma Scale Score 15 * Segundo Quick MD - 06/27/2024 11:22 AM CDT Emergency Department Attending Supervision Note I evaluated this patient in conjunction with Sam Botello PA-C. I have participated in the care of the patient and personally performed lamar elements of the history, exam, and medical decision making. HPI: Sandi Lopez is a 38 year old female with a complex past medical history pertinent for fictitious disorder, borderline personality disorder, anxiety, pulmonary embolism, chronic pain, and gastroparesis who presents with a syncopal event at this morning. Patient ultimately had the syncopal event and injured her face, landing into the side of an appliance in her kitchen. Her children did not report any seizure-like activity. Patient notes she did recently receive a unit of packed red bloodcells given low hemoglobin in recent weeks. She denies any active vaginal bleeding or hematemesis today. She denies any acute urinary complaints. She does note that she has not been eating or drinking well and has an outpatient appointment for consideration of G-tube placement in the near future. Her PICC line recently failed and was removed several weeks ago. She does note pain to the right sideof her face and difficulty opening her jaw after the accident today. Denies active chest pain or shortness of breath. EXAM: BP (!) 132/91 (BP Location: Right arm, Patient Position: Standing) Pulse (!) 124 Temp 98.4 ??F (36.9 ??C) (Temporal) Resp 26 Ht 1.676 m (5' 6) Wt 98.9 kg (218 lb) LMP 12/10/2017 SpO2 99% BMI 35.19 kg/m?? General: Alert, appears well-developed and well-nourished. Cooperative. In mild distress HEENT: Head: Atraumatic Ears: External ears are normal Mouth/Throat: Oropharynx is without erythema or exudate and mucous membranes are moist. Eyes: Conjunctivae normal and EOM are normal. No scleral icterus. CV: Normal rate, regular rhythm, normal heart sounds and radial pulses are 2+ and symmetric. No murmur. Resp: Breath sounds are clear bilaterally Non-labored, no retractions or accessory muscle use GI: Abdomen is soft, no distension, no tenderness. No rebound or guarding. No CVA tenderness bilaterally MS: Normal range of motion. Trace bilateral upper and lower extremity non pitting edema. Back atraumatic. No midline cervical, thoracic, or lumbar tenderness Skin: Warm and dry. No rash or lesions noted. Neuro: Alert. Globally weak. Sensation intact in all 4 extremities. GCS: 15 Psych: Normal mood and affect. EKG ECG results from 06/27/24 EKG 12-lead, tracing only Value Systolic Blood Pressure Diastolic Blood Pressure Ventricular Rate 115 Atrial Rate 115 ME Interval 156 QRS Duration 68 QT 318 QTc 439 P Hooper 59 R AXIS 68 T Hooper 37 Interpretation ECG Sinus tachycardia Low voltage QRS When compared with ECG of 25-Jun-2024 15:58, unchanged Interpreted by me at 1510 Labs Ordered and Resulted from Time of ED Arrival to Time of ED Departure HEPATIC FUNCTION PANEL - Abnormal Result Value Protein Total 8.3 Albumin 4.5 Bilirubin Total 0.2 Alkaline Phosphatase 202 (*) AST 21 ALT 30 Bilirubin Direct <0.20 D DIMER QUANTITATIVE - Abnormal D-Dimer Quantitative 1.22 (*) CBC WITH PLATELETS AND DIFFERENTIAL - Abnormal WBC Count 8.3 RBC Count 3.98 Hemoglobin 9.4 (*) Hematocrit 30.2 (*) MCV 76 (*) MCH 23.6 (*) MCHC 31.1 (*) RDW 19.2 (*) Platelet Count 464 (*) % Neutrophils 69 % Lymphocytes 25 % Monocytes 6 % Eosinophils 0 % Basophils 0 % Immature Granulocytes 0 NRBCs per 100 WBC 0 Absolute Neutrophils 5.7 Absolute Lymphocytes 2.0 Absolute Monocytes 0.5 Absolute Eosinophils 0.0 Absolute Basophils 0.0 Absolute Immature Granulocytes 0.0 Absolute NRBCs 0.0 HCG QUALITATIVE - Normal hCG Serum Qualitative Negative TROPONIN T, HIGH SENSITIVITY - Normal Troponin T, High Sensitivity <6 BASIC METABOLIC PANEL - Normal Sodium 139 Potassium 4.2 Chloride 102 Carbon Dioxide (CO2) 25 Anion Gap 12 Urea Nitrogen 8.5 Creatinine 0.67 GFR Estimate >90 Calcium 9.3 Glucose 99 TYPE AND SCREEN, ADULT ABO/RH(D) O POS Antibody Screen Negative SPECIMEN EXPIRATION DATE [id number] ABO/RH TYPE AND SCREEN CT Chest Pulmonary Embolism w Contrast Final Result IMPRESSION: 1. No evidence for pulmonary emboli. [...] cancer screening, patients with immunosuppression, or patients withknown primary cancer. SINGLE NODULE Nodule size <6 [...] PET/CT, or tissue sampling at [address] Cervical Spine w/o Contrast Final Result CT Head w/o Contrast Final Result CT Facial Bones without Contrast Final Result MEDICAL DECISION MAKING/ASSESSMENT AND PLAN: Patient is a 38-year-old female with a complex past medical history who presents with a syncopal event this morning with ongoing pain to the right side of her face. Patient has a clear care plan in place during emergency visits and we did follow this care plan as closely as possible given her presentation today. Given the syncopal event and a repeat syncopal event while on the commode here in the emergency department as well as tachycardia on arrival we did obtain a broad workup. I did feel thepatient necessitated an IV for laboratory work given the tachycardia and repeat syncopal event while in the emergency department. She did receive a 1 L of IV fluids with normal saline. Laboratory work appears to show chronic anemia with actual improved hemoglobin in comparison with recent hemoglobin studies. No indication for blood transfusion today. Renal function electrolytes appear baseline for the patient. Patient is not . EKG showed no concerning ischemic changes or arrhythmias in comparison with historic EKGs. Troponin undetectable and low suspicion for ACS. Patient did have CT i maging of the head, cervical spine and facial bones associated with her trauma and head injury earlier today. Thankfully the CT images did not show any signs of acute intracranial hemorrhage, skull fracture, cervical spine fracture or subluxation or facial bone fractures. Given the syncopal event and tachycardia on arrival we were unable to use the PERC criteria to rule out potential pulmonary embolism. D-dimer was elevated and so CT scan of the chest was ultimately obtained. Thankfully CT imaging of the chest did not reveal any evidence of pulmonary embolism or other acute intrathoracic abnormalities. Unclear to unifying etiology for the patient's syncopal events but she has had multiple prior emergency department visits with broad workup was performed historically. No indication for emergent hospitalization or further workup in the emergency department. Encouraged close outpatient follow-up with her care teams. Return precautions understood and after all questions answered, discharge d home. DIAGNOSIS: ICD-10-CM 1. Syncope and collapse R55 DISPOSITION: Discharged 06/27/2024 [facility] EMERGENCY DEPT Segundo Quick MD 06/27/24 192 * Sam Botello PA-C - 06/27/2024 11:22 AM CDT Emergency Department Note History of Present Illness Chief Complaint Syncope HPI Sandi Lopez is a 38 year old female with history of borderline personality disorder, chronic factitious disorder, anxiety/depression, migraines, pulmonary embolism, chronic pain, gastroparesis who presents with a complaint of a syncopal episode this morning. Patient states this morning she s tood up from a chair at her kitchen table when she had sudden onset dizziness causing her to then pass out. She states she hit a stove on the right side of her face on the way down to the ground. Herchildren were present and witnessed the syncopal episode, they do not report any seizure like activity. She reports her children told her she was unconscious for 2 to 3 minutes although she believes it was for about 1 minute. She reports no postictal state after. She has not been able to eat or drink due to previous gastroparesis and feels this is related to dehydration related to the ongoing nausea and vomiting. She reports having an appointment with a surgeon tomorrow to discuss a G-tube place ment. She did call her primary care provider who recommended she go to the emergency department today. She does complain of pain on the right side of her face and difficulty opening closing her jaw related to pain and also complains of a headache. She denies dizziness while she is laying in the gurney, fever and chills, recent illness, neck and back pain, chest pain and shortness of breath, abdominal pain. Independent Historian None Review of External Notes 06/25/2024 reviewed ED note for syncope with fall and facial laceration 06/23/2024 reviewed ED note for syncope with fall and right upper extremity pain 06/20/2024 reviewed hospital admission note for syncope with anemia. Past Medical History Medical History and Problem [...] Procedure: ESOPHAGOGASTRODUODENOSCOPY; Surgeon: Meg Lee MD; Location: [facility]; Service: ESOPHAGOSCOPY, GASTROSCOPY, DUODENOSCOPY (EGD), COMBINED N/A 02/13/2016 Procedure: ESOPHAGOGASTRODUODENOSCOPY; Surgeon: Meg Lee MD; Location: [facility] OR; Service: ESOPHAGOSCOPY, GASTROSCOPY, DUODENOSCOPY [...] CONTROLLED EPITAXIS; Surgeon: Declan Mata MD; Location: [facility]; Service: OOPHORECTOMY Right REMOVE PORT VASCULAR [...] Temp src Pulse Resp SpO2 Height Weight 06/27/24 1806 -- -- -- (!) 124 -- -- -- -- 06/27/24 1805 (!) 132/91 -- -- 110 26 99 % -- -- 06/27/24 1803 123/87 -- -- 104 19 97 % -- -- 06/27/24 1453 (!) 137/96 -- -- 112 (!) 9 99 % -- -- 06/27/24 1445 (!) 162/97 -- -- 116 21 -- -- -- 06/27/24 1133 134/89 98.4 ??F (36.9 ??C) Temporal 116 15 100 % 1.676 m (5' 6) 98.9 kg (218 lb) Physical Exam Physical Exam: GENERAL: Warm, dry, alert, no increased work of breathing HEENT: PERRLA, clear conjunctiva, oropharynx clear NECK: No JVD, supple without lymphadenopathy. No stiffness or restricted range of motion HEART: Regular rate and rhythm, no murmur or rubs LUNGS: CTAB, moving air well. No crackles or wheezes are heard. ABD: Soft, nontender, nondistended, no guarding, with good bowel sounds heard. BACK: No CVAT, no obvious deformities EXTREMITIES: Moves all extremities without difficulty, no calf tenderness or peripheral edema. SKIN: Warm and dry without rash or lesions. NEUROLOGICAL: No focal deficits. CN II-XII intact. PSYCH: Appropriate mood and affect. Diagnostics Lab Results Labs Ordered and Resulted from Time of ED Arrival to Time of ED Departure HEPATIC FUNCTION PANEL - Abnormal Result Value Protein Total 8.3 Albumin 4.5 Bilirubin Total 0.2 Alkaline Phosphatase 202 (*) AST 21 ALT 30 Bilirubin Direct <0.20 D DIMER QUANTITATIVE - Abnormal D-Dimer Quantitative 1.22 (*) CBC WITH PLATELETS AND DIFFERENTIAL - Abnormal WBC Count 8.3 RBC Count 3.98 Hemoglobin 9.4 (*) Hematocrit 30.2 (*) MCV 76 (*) MCH 23.6 (*) MCHC 31.1 (*) RDW 19.2 (*) Platelet Count 464 (*) % Neutrophils 69 % Lymphocytes 25 % Monocytes 6 % Eosinophils 0 % Basophils 0 % Immature Granulocytes 0 NRBCs per 100 WBC 0 Absolute Neutrophils 5.7 Absolute Lymphocytes 2.0 Absolute Monocytes 0.5 Absolute Eosinophils 0.0 Absolute Basophils 0.0 Absolute Immature Granulocytes 0.0 Absolute NRBCs 0.0 HCG QUALITATIVE - Normal hCG Serum Qualitative Negative TROPONIN T, HIGH SENSITIVITY - Normal Troponin T, High Sensitivity <6 BASIC METABOLIC PANEL - Normal Sodium 139 Potassium 4.2 Chloride 102 Carbon Dioxide (CO2) 25 Anion Gap 12 Urea Nitrogen 8.5 Creatinine 0.67 GFR Estimate >90 Calcium 9.3 Glucose 99 TYPE AND SCREEN, ADULT ABO/RH(D) O POS Antibody Screen Negative SPECIMEN EXPIRATION DATE [id number] ABO/RH TYPE AND SCREEN Imaging CT Chest Pulmonary Embolism w Contrast Final Result IMPRESSION: 1. No evidence for pulmonary emboli. [...] cancer screening, patients with immunosuppression, or patients withknown primary cancer. SINGLE NODULE Nodule size <6 [...] PET/CT, or tissue sampling at [address] Cervical Spine w/o Contrast Final Result CT Head w/o Contrast Final Result CT Facial Bones without Contrast Final Result EKG ECG results from 06/27/24 EKG 12-lead, tracing only Value Systolic Blood Pressure Diastolic Blood Pressure Ventricular Rate 115 Atrial Rate 115 ME Interval 156 QRS Duration 68 QT 318 QTc 439 P Hooper 59 R AXIS 68 T Hooper 37 Interpretation ECG Sinus tachycardia Low voltage QRS Borderline ECG When compared with ECG of 25-Jun-2024 15:58, Minimal criteria for Anterior infarct are no longer Present *Note: Due to a large number of results and/or encounters for the requested time period, some results have not been displayed. A complete set of results can be found in Results Review. Independent Interpretation None ED Course Medications Administered Medications diphenhydrAMINE (BENADRYL) injection 25 mg (25 mg Intravenous $Given 06/27/24 1709) HYDROmorphone (DILAUDID) tablet 2 mg (2 mg Oral $Given 06/27/24 1554) sodium chloride 0.9% BOLUS 1,000 mL (0 mLs Intravenous Stopped 06/27/24 1759) diphenhydrAMINE (BENADRYL) injection 25 mg (25 mg Intravenous $Given 06/27/24 1634) Saline Flush - CT (99 mLs Intravenous $Given 06/27/24 1642) iopamidol (ISOVUE-370) solution 77 mL (77 mLs Intravenous $Given 06/27/24 1642) ipratropium - albuterol 0.5 mg/2.5 mg/3 mL (DUONEB) neb solution 3 mL (3 mLs Nebulization $Given 06/27/24 3239) Procedures Procedures Discussion of Management Staffed with Dr. Quick ED Course ED Course as of 06/27/241954Jun 27, 2024 1430 I evaluated and examined the patient 1456 I was notified by RN became dizzy and fell to the ground while she was sitting on the commode,no loss of consciousness. 1625 I was notified by the RN, patient complaining of pruritus all over particularly at the site ofthe chlorhexidine administration. And let her know she will be getting it Benadryl prior to her CT,she states she feels much relieved and is happy with this. 1750 I reevaluated the patient, she reports feeling improved after IV fluids. No other change, condition. Optional/Additional Documentation None Medical Decision Making / Diagnosis [facility] Diagnoses: None MIPS CT for PE was ordered because the patient had an abnormal d-dimer. HARRIET Lopez is a 38 year old female with history of borderline personality disorder, chronic factitious disorder, anxiety/depression, migraines, pulmonary embolism, chronic pain, and gastroparesis who presents with complaint of a syncopal episode this morning and pain on the right side of her face. Differential includes but is not limited to ACS, pulmonary embolism, CVA, ICH, facial fractures, anemia, paroxysmal arrhythmia, and electrolyte derangement among many others. Vital signs at presentation significant for tachycardia with heart rate 116 otherwise she was not hypoxic and not febrile. A review of chart demonstrates patient's heart rate historically 100-120 during previous visits to the emergency department. Physical exam was significant for tenderness to palpation on the right side of her face overlying the zygomatic arch, right TMJ, and right maxilla without overlying erythema, ecchymosis, or edema. There was also no intraoral trauma. Workup was fairly broad given previous history, with adherence to established patient care plan. There were no electrolyte derangements, no leukocytosis, there was mild anemia however improved from previous findings. Her troponin was less than 6 and her ECG was not a consistent with ACS, I doubt ACS as cause of her syncopal episode today. Her hCG was negative. Her D-dimer was elevated 1.22, giventachycardia and syncopal episode a CT for PE was obtained as well as CT images of her head and facial bones and cervical spine. There were no acute fractures, ICH, pulmonary embolism, or other acute pathology is found. Patient did have several pulmonary nodules which were found on previous chest images without significant changes. Patient was given Benadryl prior to this CT due to previous contrast allergy, she did not have an allergic reaction after the contrast. She was also given 1 L of NS IVF and p.o. Dilaudid as per her care plan. I explained all these findings to the patient who felt reassured. She does have an appointment scheduled for tomorrow to discuss a G-tube due to ongoing gastroparesis. Return precautions were provided. Patient was discharged in stable condition. Disposition The patient was discharged. Diagnosis ICD-10-CM 1. Syncope and collapse R55 Discharge Medications Discharge Medication List as of 06/27/2024 6:00 PM NEIL Salamanca John, PA-C 06/27/241954 documented in this encounter Plan of Treatment Upcoming Encounters Date Type Department Care Team (Late st Contact Info) Description 02/20/2025 10:20 AM CDT Appointment [facility] [address] [place] [address] Allyssa Justice MD [facility] [address] [place] [address] [place] [id number] 02/27/2025 10:40 AM CDT Virtual Visit [facility] [address], [place] [address] [facility] [place] [phone] Allyssa Justice MD [facility] [address] [place] [address] [place] [place] [id number] documented as of this encounter Procedures Procedure Name Priority Date/Time Associated Diagnosis Comments CT CHEST PULMONARY EMBOLISM W CONTRAST STAT 06/27/2024 5:[address] CERVICAL SPINE W/O CONTRAST STAT 06/27/2024 5:[address] HEAD W/O CONTRAST STAT 06/27/2024 5:[address] FACIAL BONES WITHOUT CONTRAST STAT 06/27/2024 5:08 PM CDT CBC WITH PLATELETS AND DIFFERENTIAL STAT 06/27/2024 3:52 PM CDT TYPE AND SCREEN, ADULT STAT 06/27/2024 3:52 PM CDT TROPONIN T, HIGH SENSITIVITY STAT 06/27/2024 3:52 PM CDT CBC WITH PLATELETS & DIFFERENTIAL STAT 06/27/2024 3:52 PM CDT HEPATIC FUNCTION PANEL STAT 06/27/2024 3:52 PM CDT HCG QUALITATIVE STAT 06/27/2024 3:52 PM CDT D DIMER QUANTITATIVE STAT 06/27/2024 3:52 PM CDT ABO/RH TYPE AND SCREEN STAT 06/27/2024 3:52 PM CDT BASIC METABOLIC PANEL STAT 06/27/2024 3:52 PM CDT EKG 12-LEAD, TRACING ONLY STAT 06/27/2024 11:58 AM CDT documented in this encounter Results * CT [...] CT CHEST PULMONARY EMBOLISM W CONTRAST LOCATION: [facility] DATE: 06/27/2024 INDICATION: Tachycardic, elevated dimer [...] CT CHEST PULMONARY EMBOLISM W CONTRAST LOCATION: [facility] DATE: 06/27/2024 INDICATION: Tachycardic, elevated dimer [...] CT ORDERABLES Final Resul t * CT Cervical Spine w/o Contrast (06/27/2024 5:09 PM CDT) Anatomical Region Laterality Modality Spine, SUBRAD CT NEURO, SUBR AD CT NEURO, UMP CT SPINE, RAD CT Computed Tomography 06/27/2024 5:09 PM CDT Narrative 06/27/2024 5:26 PM CDT EXAM: CT HEAD W/O CONTRAST, CT FACIAL BONES WITHOUT CONTRAST, CT CERVICAL SPINE W/O CONTRAST LOCATION: [facility] DATE: 06/27/2024 INDICATION: Fall with headache, [...] WITHOUT CONTRAST, CT CERVICALSPINE W/O CONTRAST LOCATION: [facility] DATE: 06/27/2024 INDICATION: Fall with headache, [...] spinal canal or neural foraminal stenosis. us Sam Botello PA-C IMG CT ORDERABLES Final Resul t * CT Head w/o Contrast (06/27/2024 5:09 PM CDT) Anatomical Region Laterality Modality Head, SUBRAD CT NEURO, SUBRA D CT NEURO, UMP CT NEURO, RAD CT Computed Tomography 06/27/2024 5:09 PM CDT Narrative 06/27/2024 5:26 PM CDT EXAM: CT HEAD W/O CONTRAST, CT FACIAL BONES WITHOUT CONTRAST, CT CERVICAL SPINE W/O CONTRAST LOCATION: [facility] DATE: 06/27/2024 INDICATION: Fall with headache, [...] WITHOUT CONTRAST, CT CERVICALSPINE W/O CONTRAST LOCATION: [facility] DATE: 06/27/2024 INDICATION: Fall with headache, [...] spinal canal or neural foraminal stenosis. us Sam Botello PA-C IMOzzy CT ORDERABLES Final Resul t * CT Facial Bones without Contrast (06/27/2024 5:08 PM CDT) Anatomical Region Laterality Modality Head, SUBRAD CT NEURO, UMP CT NEURO, RAD CT Computed Tomography 06/27/2024 5:08 PM CDT Narrative 06/27/2024 5:26 PM CDT EXAM: CT HEAD W/O CONTRAST, CT FACIAL BONES WITHOUT CONTRAST, CT CERVICAL SPINE W/O CONTRAST LOCATION: [facility] DATE: 06/27/2024 INDICATION: Fall with headache, [...] WITHOUT CONTRAST, CT CERVICALSPINE W/O CONTRAST LOCATION: [facility] DATE: 06/27/2024 INDICATION: Fall with headache, [...] and Screen (06/27/2024 3:52 PM CDT) Pathologist [facility] ABO/RH(D) O POS 06/27/2024 3:31 PM CDT BLOOD BANK Antibody Screen Negative Negative 06/27/2024 3:31 PM CDT BLOOD BANK SPECIMEN EXPIRATION DATE [id number] 06/27/2024 3:31 PM CDT BLOOD BANK Blood BLOOD SPECIMEN / Unknown Venipuncture / Unknown 06/27/2024 3:52 PM CDT 06/27/2024 3:59 PM CDT Sam Botello PA-C LAB - BLOOD BANK TEST ORDER F inal Result BLOOD BANK [address] [address], [facility] * (ABNORMAL) CBC with platelets and differential (06/27/2024 3:52 PM CDT) WBC Count 8.3 4.0 - 11.0 10e3/uL 06/27/2024 4:04 PM CDT LABORATORY RBC Count 3.98 3.80 - 5.20 10e6/uL 06/27/2024 4:04 PM CDT LABORATORY Hemoglobin 9.4(L) 11.7 - 15.7 g/dL 06/27/2024 4:04 PM CDT LABORATORY Hematocrit 30.2(L) 35.0 - 47.0 % 06/27/2024 4:04 PM CDT LABORATORY MCV 76(L) 78 - 100 fL 06/27/2024 4:04 PM CDT LABORATORY MCH 23.6(L) 26.5 - 33.0 pg 06/27/2024 4:04 PM CDT LABORATORY MCHC 31.1(L) 31.5 - 36.5 g/dL 06/27/2024 4:04 PM CDT LABORATORY RDW 19.2(H) 10.0 - 15.0 % 06/27/2024 4:04 PM CDT LABORATORY Platelet Count 464(H) 150 - 450 10e3/uL 06/27/2024 4:04 PM CDT LABORATORY % Neutrophils 69 % 06/27/2024 4:04 PM CDT LABORATORY % Lymphocytes 25 % 06/27/2024 4:04 PM CDT LABORATORY % Monocytes 6 % 06/27/2024 4:04 PM CDT LABORATORY % Eosinophils 0 % 06/27/2024 4:04 PM CDT LABORATORY % Basophils 0 % 06/27/2024 4:04 PM CDT LABORATORY % Immature Granulocytes 0 % 06/27/2024 4:04 PM CDT LABORATORY NRBCs per 100 WBC 0 <1 /100 024 4:04 PM CDT LABORATORY Absolute Neutrophils 5.7 1.6 - 8.3 10e3/uL 06/27/2024 4:04 PM CDT LABORATORY Absolute Lymphocytes 2.0 0.8 - 5.3 10e3/uL 06/27/2024 4:04 PM CDT LABORATORY Absolute Monocytes 0.5 0.0 - 1.3 10e3/uL 06/27/2024 4:04 PM CDT LABORATORY Absolute Eosinophils 0.0 0.0 - 0.7 10e3/uL 06/27/2024 4:04 PM CDT LABORATORY Absolute Basophils 0.0 0.0 - 0.2 10e3/uL 06/27/2024 4:04 PM CDT LABORATORY Absolute Immature Granulocytes 0.0 <=0.4 10e3/uL 06/27/2024 4:04 PM CDT LABORATORY Absolute NRBCs 0.0 10e3/uL 06/27/2024 4:04 PM CDT LABORATORY Blood BLOOD SPECIMEN / Unknown Venipuncture / Unknown 06/27/2024 3:52 PM CDT 06/27/2024 3:59 PM CDT Sam Botello PA-C LAB - BLOOD ORDERABLES Final Result Performing Organization Address City/[facility]/ZIP Co de Phone Number LABORATORY [facility] [address] floor, [address] [address], [facility] [phone] * (ABNORMAL) D dimer quantitative (06/27/2024 3:52 PM CDT) [facility] D-Dimer Quantitative 1.22(H) 0.00 - 0.50 ug/mL [...] BLOOD ORDERABLES Final Result Performing Organization Address City/[facility]/ZIP Co de Phone Number LABORATORY [facility] [address] 1[address] floor, [address] [place] [address], [facility] [phone] * (ABNORMAL) Hepatic function panel (06/27/2024 3:52 PM CDT) Pathologist [facility] Protein Total 8.3 6.4 - 8.3 g/dL 06/27/2024 4:22 PM CDT LABORATORY Albumin 4.5 3.5 - 5.2 g/dL 06/27/2024 4:22 PM CDT LABORATORY Bilirubin Total 0.2 <=1.2 mg/dL 06/27/2024 4:22 PM CDT LABORATORY Alkaline Phosphatase 202(H) 40 - 150 U/L 06/27/2024 4:22 PM CDT LABORATORY AST 21 0 - 45 U/L 06/27/2024 4:22 PM CDT LABORATORY ALT 30 0 - 50 U/L 06/27/2024 4:22 PM CDT LABORATORY Bilirubin Direct <0.20 0.00 - 0.30 mg/dL 06/27/2024 4:22 PM CDT LABORATORY Blood BLOOD SPECIMEN / Unknown Venipuncture / Unknown 06/27/2024 3:52 PM CDT 06/27/2024 3:59 PM CDT Sam Botello PA-C LAB - BLOOD ORDERABLES Final Result LABORATORY [facility] [address] 1[address] floor, [address] [place] [address], [facility] [phone] * Basic metabolic panel (06/27/2024 3:52 PM CDT) Sodium 139 135 - 145 mmol/L 06/27/2024 4:22 PM CDT LABORATORY Potassium 4.2 3.4 - 5.3 mmol/L 06/27/2024 4:22 PM CDT LABORATORY Chloride 102 98 - 107 mmol/L 06/27/2024 4:22 PM CDT LABORATORY Carbon Dioxide (CO2) 25 22 - 29 mmol/L 06/27/2024 4:22 PM CDT LABORATORY Anion Gap 12 7 - 15 mmol/L 06/27/2024 4:22 PM CDT LABORATORY Urea Nitrogen 8.5 6.0 - 20.0 mg/dL 06/27/2024 4:22 PM CDT LABORATORY Creatinine 0.67 0.51 - 0.95 mg/dL 06/27/2024 4:22 PM CDT LABORATORY GFR Estimate >90 >60 mL/min/1.7 3m2 06/27/2024 4:22 PM CDT LABORATORY Comment:eGFR calculated usin 2020 CKD-EPI equation. Calcium 9.3 8.8 - 10.4 mg/dL 06/27/2024 4:22 PM CDT LABORATORY Comment:Reference intervals for this test were updated on 06/13/2024 to reflect our healthy population more accurately. There may be differences in the flagging of prior results with similar values performed with this method. Those prior results can be interpreted in the context of the updated reference intervals. Glucose 99 70 - 99 mg/dL 06/27/2024 4:22 PM CDT LABORATORY Blood BLOOD SPECIMEN / Unknown Venipuncture / Unknown 06/27/2024 3:52 PM CDT 06/27/2024 3:59 PM CDT Sam Botello PA-C LAB - BLOOD ORDERABLES Final Result LABORATORY [facility] [address] 1[address] floor, [address] [place] [address], [facility] [phone] * Troponin T, High Sensitivity (06/27/2024 3:52 PM CDT) [facility] Troponin T, High Sensitivity <6 <=14 ng/L 06/27/2024 4:22 PM CDT LABORATORY Comment: Either a High [...] CDT Sam Botello PA-C LAB - BLOOD ORDERABLES Final Result Performing Organization Address City/[facility]/ZIP Co de Phone Number LABORATORY [facility] [address] 1[address], [address] [place] [address], [facility] [phone] * HCG qualitative Blood (06/27/2024 3:52 PM CDT) hCG Serum Qualitative Negative Negative [place] 06/27/2024 4:11 PM CDT LABORATORY Comment:This test is for scr eening purposes. Results should be interpreted along with the clinical picture. Confirmation testing is available if warranted by ordering [id number], HCG Quantitative . Blood BLOOD SPECIMEN / Unknown Venipuncture / Unknown 06/27/2024 3:52 PM CDT 06/27/2024 3:59 PM CDT Sam Botello PA-C LAB - BLOOD ORDERABLES Final Result Performing Organization Address [facility] Co de Phone Number LABORATORY [facility] [address] 1st floor, [address] [place] [address], [facility] [phone] * EKG 12-lead, tracing only (06/27/2024 11:58 AM CDT) Systolic Blood Pressure mmHg RADIOLOGY RESULTS Diastolic Blood Pressure mmHg RADIOLOGY RESULTS Ventricular Rate 115 BPM RAD IOLOGY RESULTS Atrial Rate 115 BPM RADIOLOG Y RESULTS ME Interval 156 ms RADIOLOG Y RESULTS QRS Duration 68 ms RADIOLO GY RESULTS QT 318 ms RADIOLOGY RESULTS QTc 439 ms RADIOLOGY RESULTS P Hooper 59 degrees RADIOLOGY RESULTS R AXIS 68 degrees RADIOLOGY RESULTS T Hooper 37 degrees RADIOLOGY RESULTS Interpretation ECG Sinus tachycardia Low voltage QRS Borderline ECG When compared with ECG of 25-Jun-2024 15:58, Minimal criteria for Anterior infarct are no longer Present Confirmed by GENERATED REPORT, COMPUTER ([id number]), production editor Soham Snell ([id number]) on 06/28/2024 6:54:46 AM RADIOLOGY RESULTS 06/27/2024 11:5 8 AM CDT 06/28/2024 6:54 AM CDT Segundo Quick MD ECG ORDERABLES Edited Result - Final RADIOLOGY RESULTS documented in this encounter Visit Diagnoses Diagnosis Syncope and collapse documented in this encounter Administered Medications Inactive Administered Medications - up to 3 most recent administrations Medication Order MAR Action Action Date Dose Rate Site diphenhydrAMINE (BENADRYL) 50 MG/ML injection Starting on Wed06/27/24 at 1631, For 1 dose, Bethanie Santamaria: yanninehumza override diphenhydrAMINE (BENADRYL) injection 25 mg 25 mg, Intravenous, ONCE, On Wed06/27/24 at 1625, For 1 dose $Given 06/27/2024 4:34 PM CDT 25 mg diphenhydrAMINE (BENADRYL) injection 25 mg 25 mg, Intravenous, EVERY 6 HOURS PRN, itching, Starting on Wed06/27/24 at 1703 $Given 06/27/2024 5:09 PM CDT 25 mg HYDROmorphone (DILAUDID) tablet 2 mg 2 mg, Oral, ONCE, On Wed06/27/24 at 1505, For 1 dose $Given 06/27/2024 3:54 PM CDT 2 mg iopamidol (ISOVUE-370) solution 77 mL 77 mL, Intravenous, ONCE, On Wed06/27/24 at 1635, For 1 dose $Given 06/27/2024 4:42 PM CDT 77 mLs ipratropium - albuterol 0.5 mg/2.5 mg/3 mL (DUONEB) neb solution 3 mL 3 mL, Nebulization, ONCE, On Wed06/27/24 at 1705, For 1 dose $Given 06/27/2024 5:09 PM CDT 3 mLs Saline Flush - CT Intravenous, 99 mL, ONCE, On Wed06/27/24 at 1635, For 1 dose, This entry is for use by Radiology to intermittently used as a flush in patients receiving a CT scan. $Given 06/27/2024 4:42 PM CDT 99 mLs sodium chloride 0.9% BOLUS 1,000 mL Intravenous, 1,000 mL, ONCE, at 1,000 mL/hr, Administer over 1 Hours, On Wed06/27/24 at 1505, For 1 dose $New Bag 06/27/2024 3:54 PM CDT 1,000 mLs 1000 mL/hr documented in this encounter Active and Recently Administered Medications Times are shown in CDT. Scheduled Medication Order 06/25/2024 06/26/2024 06/27/2024 diphenhydrAMINE (BENADRYL) injection 25 mg (COMPLETED) 25 mg, Intravenous, ONCE, On Wed06/27/24 at 1625, For 1 dose 1634 ($Given - Provi rosita: Bethanie Santamaria RN - Comment: Benadryl 25mg wasted) HYDROmorphone (DILAUDID) tablet 2 mg (COMPLETED) 2 mg, Oral, ONCE, On Wed06/27/24 at 1505, For 1 dose 1554 ($Given - Provi rosita: Bethanie Santamaria RN) iopamidol (ISOVUE-370) solution 77 mL (COMPLETED) 77 mL, Intravenous, ONCE, On Wed06/27/24 at 1635, For 1 dose 1642 ($Given - Provi rosita: Santy Grier) ipratropium - albuterol 0.5 mg/2.5 mg/3 mL (DUONEB) neb solution 3 mL (COMPLETED) 3 mL, Nebulization, ONCE, On Wed06/27/24 at 1705, For 1 dose 1709 ($Given - Provi rosita: Bethanie Santamaria RN) Saline Flush - CT (COMPLETED) Intravenous, 99 mL, ONCE, On Wed06/27/24 at 1635, For 1 dose, This entry is for use by Radiology to intermittently used as a flush in patients receiving a CT scan. 164 ($Given - Provi rosita: Santy Grier) sodium chloride 0.9% BOLUS 1,000 mL (COMPLETED) Intravenous, 1,000 mL, ONCE, at 1,000 mL/hr, Administer over 1 Hours, On Wed06/27/24 at 1505, For 1 dose 1554 ($New Bag - Pro vider: Bethanie Santamaria, RN)[phone] (Stopped - Provider: Bethanie Santamaria RN) PRN Medication Order 06/25/2024 06/26/2024 06/27/2024 diphenhydrAMINE (BENADRYL) injection 25 mg 25 mg, Intravenous, EVERY 6 HOURS PRN, itching, Starting on Wed06/27/24 at 1703 1709 ($Given - Provi rosita: Bethanie Santamaria RN) 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 Assessment Noted Time PHQ-9 Depression Total Score: 4 02/21/20 24 1:54 PM CDT documented as of this encounter Care Teams Florist Manager Relationship Specialty [place] [address] [address] PCP - General Family Medicine 04/22/23 [place] [address] [address] Assigned Pain Medication Provider 12/07/22 [place] [address] [address] [address] Assigned PCP 01/23/23 [place] [address] [place] [address] [address] Assigned Musculoskeletal Provider 01/23/23 09/19/24 Gregorio Dalton PA-C [address] [address] Assigned Surgical Provider 05/22/23 07/20/24 Kingsley Garcia MD [address] [address] Assigned Heart and Vascular Provider 08/07/23 [place] [address] [place] [address] Family Medicine 09/10/23 Master Shea PA-C [address] [place] [address] Physician Insurance Loss Assessor Gastroenterology 09/10/23 Allyssa Justice MD [facility] [address] [place] [address] [address]275[address] Hematology & Oncology 12/10/23 Genaro Christian MD [address] [place] [address] Cardiovascular Disease 12/22/23 Master Shea PA-C [address] [address] Assigned Gastroenterology Provider 12/23/23 Sienna Guillermo DO [address] [id number] Physician Cardiovascular Disease 01/18/24 Allyssa Justice MD [facility] [address] 725345 Assigned Cancer Care Provider 03/21/24 documented as of this encounter
--- OUTSIDE RECORDS SUMMARY | 2024-09-21 22:43 | XMS_ITS | Encounter Summary ---
Author Organization [place] Address [address] [place] [address] Care Team Providers Care Team Automobile Assembler Name Role Phone Segundo Mcclelland MD Unavailable [phone] Segundo Mcclelland MD Unavailable [phone] Qamar Jackson MD Unavailable Segundo Mcclelland MD Primary Care Provider + Gregorio Dalton PA-C Unavailable [phone] Kingsley Garcia MD Unavailable + [phone] Segundo Mcclelland MD Unavailable [phone] Master Shea PA-C Unavailable Allyssa Justice MD Unavailable [phone] Genaro Christian MD Unavailable [phone] Master Shea PA-C Unavailable Sienna Guillermo DO Unavailable [phone] Allyssa Justice MD Unavailable [phone] Encounter Details Date Type Department Care Team (Latest Contact Info) Description 06/28/2024 Travel Social History Tobacco Use Types Packs/Day [...] AM CDT 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[employer] Gender Identity Female 05/26/2021 10:37 AM CDT [...] Info) Description 02/20/2025 10:20 AM CDT Appointment [facility] [address] [facility] [address] [place] [address] Allyssa Justice MD [facility] [address] [place] [address] [address] [address] 02/27/2025 10:40 AM CDT Virtual Visit [facility] [address] [place] [address] [facility] [place] [address] [phone] Allyssa Justice MD [facility] [address] [place] [address] [address] documented as of this encounter Visit Diagnoses Not on file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 Assessment Noted Time PHQ-9 Depression Total Score: 4 02/21/20 24 1:54 PM CDT documented as of this encounter Care Teams Team Automobile Assembler Relationship Specialty Start [place] [address] [address] PCP - General Family Medicine 04/22/23 [place] [address] [address] [address] Assigned Pain Medication Provider 12/07/22 [place] [address] [address] [address] Assigned PCP 01/23/23 [place] [address] [place] [address] [address] Assigned Musculoskeletal Provider 01/23/23 09/19/24 Gregorio Dalton PA-C [address] [address] Assigned Surgical Provider 05/22/23 07/20/24 Kingsley Garcia MD [address] [address] Assigned Heart and Vascular Provider 08/07/23 [place] [address] [place] [address] Family Medicine 09/10/23 Master Shea PA-C [address] [address] Physician Quarry Plant Crusher Operator Gastroenterology 09/10/23 Allyssa Justice MD [facility] [address] [address] Hematology & Oncology 12/10/23 Genaro Christian MD [address] [place] [address] Cardiovascular Disease 12/22/23 Master Shea PA-C [address] [place] [address] Assigned Gastroenterology Provider 12/23/23 Sienna Guillermo DO [address] [address] Physician Cardiovascular Disease 01/18/24 Allyssa Justice MD [facility] [address] [address] Assigned Cancer Care Provider 03/21/24 documented as of this encounter
--- OUTSIDE RECORDS SUMMARY | 2024-09-21 22:44 | XMS_ITS | Encounter Summary ---
Author Organization [place] Address [address] [place] [address] Care Team Providers Care Lastex Operator Name Role Phone Segundo Mcclelland MD Unavailable [phone] Segundo Mcclelland MD Unavailable [phone] Qamar Jackson MD Unavailable Segundo Mcclelland MD Primary Care Provider + Gregorio Dalton PA-C Unavailable [phone] Kingsley Garcia MD Unavailable + [phone] Segundo Mcclelland MD Unavailable [phone] Master Shea PA-C Unavailable Allyssa Justice MD Unavailable [phone] Genaro Christian MD Unavailable [phone] Master Shea PA-C Unavailable Sienna Guillermo DO Unavailable [phone] Allyssa Justice MD Unavailable [phone] Reason for Visit * Reason Comments Hospital F/U Encounter Details Date Type Department Care Team (Late st Contact Info) Description 06/13/2024 11:[address] 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 How would you like to obtain your AVS? MyChart If the video visit is dropped, the invitation should be resent by: Send to e- mail at: [email or web address] Will anyone else be joining your video visit? No Assessment and Plan (R11.2) Intractable nausea and vomiting (primary encounter diagnosis) Comment: will arrange to replace line, toherwise has follow up with GI scheduled Plan: IR Referral RTC in Segundo Mcclelland MD Subjective Sandi is a 38 year old, presenting for the following health issues: Hospital F/U 06/02/2024 3:57 PM Additional Questions Roomed by Gifty Jacobs Video Start Time: 11:40 AM [facility] ED/UC Followup: Facility: [facility] Date of visit: 05/26 Reason for visit: GI hemorrhage Current Status: Weak Lost PICC line a few days ago (snagged when she fell), did have totally pulled while at [place] and they did not replace it (choosing to leave that up to me). Also still having n/v, hasn't been able tolerate PO. Feeling weak and unsteady on her feet. Doesn't feel safe walking. With previous admission did need 2u RBC. Next appt with GI is in about 2w. Did have two endoscopies recently. Sandi reports that GI is more concerned about bleed than gastroparesis, per se. Objective Vitals: No vitals were obtained today due to virtual visit. Physical Exam GENERAL: alert, pale appearing and mild distress EYES: Eyes grossly normal to inspection. No discharge or erythema, or obvious scleral/conjunctival abnormalities. RESP: No audible wheeze, cough, or visible cyanosis. SKIN: Visible skin clear. No significant rash, abnormal pigmentation or lesions. NEURO: Cranial nerves grossly intact. Mentation and speech appropriate for age. PSYCH: Appropriate affect, tone, and pace of words Video-Visit Details Type of service: Video Visit Video End Time: 1201 Originating Location (pt. Location): Home Distant Location (provider location): On-site Platform used for Video Visit: Irais Signed Electronically by: Segundo Mcclelland MD * Sienna Wilder RN - 06/13/2024 11:30 AM CDT Images from the original note were not included. Segundo Mcclelland MD [facility] Please reach out to IR and work to get her in STEF. My preference would be for her to get a new port as that feels safer and more durable, but I am open to suggestions for anything that will be secure and allow for frequent access. I'm willing to speak directly with someone. -S * Sienna Wilder RN - 06/13/2024 11:30 AM CDT 06/13/24 12:14 p.m. Called Interventional Radiology at [phone] - spoke to Sridevi - she sees the referral. She said it is being reviewed. Once it is reviewed by the provider, they send it to scheduling and they reachout to the pt. She said it was put in as routine. She said she will try to help and put urgent. She said she has marked it as urgent. The providers will review now and typically it takes a day or two. documented in this encounter Plan of Treatment Upcoming Encounters Date Type Department Care Team (Late st Contact Info) Description 02/20/2025 10:20 AM CDT Appointment [facility] Imaging [address] [place] [address] [place] [address] Allyssa Justice MD [facility] [address] [id number] 02/27/2025 10:40 AM CDT Virtual Visit [facility] [address] [place] [address] [facility] [place] [address] [phone] Allyssa Justice MD [facility] [address] [address] documented as of this encounter Visit Diagnoses Diagnosis Intractable nausea and vomiting- Primary Persistent vomiting 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 Assessment Noted Time PHQ-9 Depression Total Score: 4 02/21/20 1:54 PM CDT documented as of this encounter Care Teams Lastex Operator Relationship Specialty Start [place] [address] [address] [address] PCP - General Family Medicine 04/22/23 [place] [address] [place] [address] Assigned Pain Medication Provider 12/07/22 [place] [address] [address] [address] Assigned PCP 01/23/23 [place] [address] [place] [address] Assigned Musculoskeletal Provider 01/23/23 09/19/24 Gregorio Dalton PA-C [address] [address] Assigned Surgical Provider 05/22/23 07/20/24 Kingsley Garcia MD [address] [place] [address] Assigned Heart and Vascular Provider 08/07/23 [place] [address] [place] [address] Family Medicine 09/10/23 Master Shea PA-C [address] [place] [address] Physician Legal Stenographer Gastroenterology 09/10/23 Allyssa Justice MD [facility] [address] [place] [address] Hematology & Oncology 12/10/23 Genaro Christian MD [address] [place] [address]35[address] Cardiovascular Disease 12/22/23 Master Shea PA-C [address] [place] [address] Assigned Gastroenterology Provider 12/23/23 Sienna Guillermo DO [address] [place] [address] Physician Cardiovascular Disease 01/18/24 Allyssa Justice MD [facility] [address] [place] [address] Assigned Cancer Care Provider 03/21/24 documented as of this encounter
--- OUTSIDE RECORDS SUMMARY | 2024-09-21 22:44 | XMS_ITS | Encounter Summary ---
Author Organization [facility] Address [address] [place] [address] Care Team Providers Care Button Sewing Machine Operator Name Role Phone Segundo Mcclelland MD Unavailable [phone] Segundo Mcclelland MD Unavailable [phone] Qamar Jackson MD Unavailable Segundo Mcclelland MD Primary Care Provider + Gregorio Dalton PA-C Unavailable [phone] Kingsley Garcia MD Unavailable + [phone] Segundo Mcclelland MD Unavailable [phone] Master Shea PA-C Unavailable Allyssa Justice MD Unavailable [phone] Genaro Christian MD Unavailable + [phone] Master Shea PA-C Unavailable Sienna Guillermo DO Unavailable +[phone] Allyssa Justice MD Unavailable [phone] Encounter Details Date Type Department Care Team (Latest Contact Info) Description 06/19/2024 Travel Social History Tobacco Use Types Packs/Day [...] AM CDT 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 [address] [place] [address] Allyssa Justice MD [facility] [address] [place] [address] [place] [address] 02/27/2025 10:40 AM CDT Virtual Visit [facility] [address] [place] [address] [facility] [place] [phone] Allyssa Justice MD [facility] [address] [place] [address] [place] [address] documented as of this encounter Visit Diagnoses Not on file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 Assessment Noted Time PHQ-9 Depression Total Score: 4 02/21/20 24 1:54 PM CDT documented as of this encounter Care Teams Button Sewing Machine Operator Relationship Specialty Start [place] [address] [address] [address] PCP - General Family Medicine 04/22/23 [place] [address] [address] [address] Assigned Pain Medication Provider 12/07/22 [place] [address] [address] [address] Assigned PCP 01/23/23 [place] [address] [place] [address] Assigned Musculoskeletal Provider 01/23/23 09/19/24 Gregorio Dalton PA-C [address] [address] Assigned Surgical Provider 05/22/23 07/20/24 Kingsley Garcia MD [address] [place] [address] Assigned Heart and Vascular Provider 08/07/23 [place] [address] [place] [address] Family Medicine 09/10/23 Master Shea PA-C [address] [place] [address] Physician Building Insulation Installer Gastroenterology 09/10/23 Allyssa Justice MD [facility] [address] [place] [address] [place] [address] Hematology & Oncology 12/10/23 Genaro Christian MD [address] [place] [address] Cardiovascular Disease 12/22/23 Master Shea PA-C [address] [place] [address] Assigned Gastroenterology Provider 12/23/23 Sienna Guillermo DO [address] [place] [address] Physician Cardiovascular Disease 01/18/24 Allyssa Justice MD [facility] [address] [place] [address] [place] [address] Assigned Cancer Care Provider 03/21/24 documented as of this encounter
--- OUTSIDE RECORDS SUMMARY | 2024-09-21 22:44 | XMS_ITS | Encounter Summary ---
Author Organization [facility] Address [address] [place] [address] Care Team Providers Care Bar Attendant Name Role Phone Segundo Mcclelland MD Unavailable [phone] Segundo Mcclelland MD Unavailable [phone] Qamar Jackson MD Unavailable Segundo Mcclelland MD Primary Care Provider + Gregorio Dalton PA-C Unavailable [phone] Kingsley Garcia MD Unavailable + [phone] Segundo Mcclelland MD Unavailable [phone] Master Shea PA-C Unavailable Allyssa Justice MD Unavailable [phone] Genaro Christian MD Unavailable + [phone] Master Shea PA-C Unavailable Sienna Guillermo DO Unavailable [phone] Allyssa Justice MD Unavailable [phone] Reason for Visit * Reason Onset Date Comments Patient/info Update 06/19/2024 ED periphera l IV concern Encounter Details Date Type Department Care Team (Late st Contact Info) Description 06/19/2024 Telephone [facility] [address] [facility] [place] [address] [place] [address] 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 Segundo Mcclelland MD * Telephone Encounter - Alanna Kruger RN - 06/22/2024 9:57 AM CDT Incoming call from patient. Checking the status of this encounter. Alanna Kruger RN * Telephone Encounter - Danyelle Coker RN - 06/21/2024 2:00 PM CDT Patient calling to check on this. Have we heard back from them? Danyelle Coker RN * Telephone Encounter - Olga Garcia RN - 06/20/2024 1:22 PM CDT Called [facility] and spoke with Mary Kay who states that they are not able to give MD's direct contact info but they can have their operator electronic warfare provider call Dr. Mcclelland. Gave Dr. Mcclelland's direct contact info. Awaiting a call back from the operator electronic warfare physician and update from PCP Dr. Mcclelland. Will update pt as needed. Olga Garcia RN * Telephone Encounter - Segundo Mcclelland MD - 06/20/2024 12:45 PM CDT Has anyone spoken to a nurse or physician about this? I'd be willing to speak directly to a MD about this. * Telephone Encounter - Amy Hodges - 06/20/2024 11:50 AM CDT General Call Contacts Contact Date/Time Type Contact Phone/Fax 06/19/2024 03:39 PM CDT Phone (Incoming) Sandi Lopez (Self) [phone] (M) 06/20/2024 08:11 AM CDT Phone (Incoming) Sandi Lopez (Self) [phone] (M) 06/20/2024 08:15 AM CDT Phone (Incoming) Sandi Lopez (Self) [phone] (M) 06/20/2024 08:30 AM CDT Phone (Outgoing) [facility] [phone] 06/20/2024 09:34 AM CDT Phone (Incoming) Sandi Lopez (Self) [phone] 06/20/2024 11:49 AM CDT Phone (Incoming) Sandi Lopez (Self) [phone] Reason for Call: form What are your questions or concerns: Pt has called in to check on the status of this form. This is her second request about the form today. Sending to the provider for review. Could we send this information to you in [facility] or would you prefer to receive a phone call?: Patient would prefer a phone call Okay to leave a detailed message?: Yes at Cell number on file: Telephone Information: * Telephone Encounter - Donato Argueta RN - 06/20/2024 9:33 AM CDT Received callback from patient. RN gave update to patient that clinic contacted surgical consults and the earliest appointment would be 6 days. RN advised we are awaiting PCP review of message for recommendation. Donato Means RN 06/20/2024 at 9:34 AM * Telephone Encounter - Sienna Wilder RN - 06/20/2024 9:23 AM CDT Will forward to Dr. Mcclelland. * Telephone Encounter - Suzanen Wetzel RN - 06/20/2024 8:15 AM CDT Regarding sooner surgical consult for J-tube placement: Patient states I can get a sooner consult if I'm at the ER and they admit me. Patient was evaluated at Emergency Department last evening (06/19/24) and was not admitted. ... 9:52 PM - Called to room as patient requesting to have IV removed and to leave AMA. Blood transfusion just started. Spoke with [facility], who reported the soonest patient can get a consult is6 days. Patient is requesting an urgent consult. This cannot be accommodated unless patient is admitted into the hospital. 08:55: Left message asking patient to return the call. * Telephone Encounter - Sienna Wilder RN - 06/19/2024 6:06 PM CDT Please try to reach out to surgery in the morning. See message below. * Telephone Encounter - Sienna Wilder RN - 06/19/2024 5:55 PM CDT Pt calls back. She says they gave her [address] Mcclelland gives her 4 mg. She said the care plan says they can give a dose of it. She wants us to call the ER to say its ok to give [address] Mcclelland is done for the day. Will forward to CRISTY Sharma. Talked to Laura Cardozo. She advised she can't do that. See Dr. Mcclelland's note below also from earliertoday. Tried to advise pt, not sure if we got cut off. Called the pt back and left a message to call us back. * Telephone Encounter - Sienna Wilder RN - 06/19/2024 4:[address] Mcclelland advised he had already talked to Dr. Barajas earlier today about trying to see if surgery could do this today. Advised to try again to call surgery in the morning. * Telephone Encounter - Sienna Wilder RN - 06/19/2024 4:32 PM CDT Tried to call surgery at [phone]. There office is currently closed. Please try again in the morning. Called the pt to advise. She is crying. She wants me to reach out to the ER and talk to Dr. Barajas to have her talk to surgery to get thisdone veronica. Sent a message to Dr. Mcclelland as wanting to make sure to go through correct channels. * Telephone Encounter - Segundo Mcclelland MD - 06/19/2024 4:23 PM CDT Emily, Can you reach out to surgery and see what they would need to get in her VERONICA for j-tube. Pt is unable to tolerate PO, needs to have some way of getting fluids/medication VERONICA. No pain meds. Thanks, Segundo Mcclelland MD * Telephone Encounter - Segundo Mcclelland MD - 06/19/2024 4:21 PM CDT I would advise pulling peripheral per policy. I will speak to surgery about accelerating J-tube. Segundo Mcclelland MD * Telephone Encounter - Sienna Wilder RN - 06/19/2024 4:16 PM CDT Pt calls. She is in the ER currently. Looks like the pt talked to another nurse shortly before talking to me. See below. She said her picc line had to be pulled. She has not had fluids recently. She said IR does not do j-tubes. General surgery does. She said General Surgery said it is not emergent so she will have to see them in office so it will be about a week and 1/2 until they can see her in office. Right now she has a good peripheral IV in. She still has home care. They placed a call to Dr. Mcclelland. She is wondering if he will allow the peripheral IV to stay in. Right now they are going to give her blood and then pull the peripheral IV unless he talks to Dr. Barajas at the [facility] ER [phone] and [facility] - Bharat is the pharmacist - [phone]. She wants you talk to them right now. She said she passed out today and is going to have to have some teeth pulled per the ER doctor. Shewants to know if you will write for pain meds until she can get to the dentist. * Telephone Encounter - Giovani Mandujano RN - 06/19/2024 3:[address] Mcclelland, Pt calls requesting urgent request be placed to PCP. Pt has current bed in [facility] ED. Pt states that her J tube will not be placed until 1-1.5 weeks. Pt states her PICC line was removed and she now has a PIV. Pt states that home care cannot place a PIV as she is a hard stick. Pt requests the following: - That PCP speak with Dr. Barajas at the ED to allow patient to leave with PIV in place to continueIV infusions of fluids and benadryl at home. - That PCP contact Bharat the Pharmacist at [facility] to place orders for IV fluids and benadryl infusions. [facility] contact [phone] speak to Bharat. Informed pt that ED may need to remove PIV per policy. Pt still requests PCP review of above requests. Please review and advise. Thank you! Giovani Mandujano, RN on 06/19/2024 at 4:03 PM documented in this encounter Plan of Treatment Upcoming Encounters Date Type Department Care Team (Late st Contact Info) Description 02/20/2025 10:20 AM CDT Appointment [facility] Imaging [address] [facility] [address] [place] [phone] Allyssa Justice MD [facility] [address] [place] [address] [place] [address] 02/27/2025 10:40 AM CDT Virtual Visit [facility] [address] [place] [address] [facility] [place] [address] [address] 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 Assessment Noted Time PHQ-9 Depression Total Score: 4 02/21/20 24 1:54 PM CDT documented as of this encounter Care Teams Bar Attendant Relationship Specialty Start [place] [address] [address] [address] PCP - General Family Medicine 04/22/23 [place] [address] [address] [address] Assigned Pain Medication Provider 12/07/22 [place] [address] [address] [address] Assigned PCP 01/23/23 [place] [address] [place] [address] Assigned Musculoskeletal Provider 01/23/23 09/19/24 Gregorio Dalton PA-C [address] [address] Assigned Surgical Provider 05/22/23 07/20/24 Kingsley Garcia MD [address] [place] [address] Assigned Heart and Vascular Provider 08/07/23 [place] [address] [address] [address] Family Medicine 09/10/23 Master Shea PA-C [address] [place] [address] Physician Tennis Player Gastroenterology 09/10/[address] [facility] [address] [place] [address] [place] [address] Hematology & Oncology 12/10/23 Genaro Christian MD 6 [place] [address] Cardiovascular Disease 12/22/23 Master Shea PA-C [address] [place] [address] Assigned Gastroenterology Provider 12/23/23 Sienna Guillermo DO [address] [place] [address] Physician Cardiovascular Disease 01/18/[address] [facility] [address] [place] [address] Assigned Cancer Care Provider 03/21/24 documented as of this encounter
--- OUTSIDE RECORDS SUMMARY | 2024-09-21 22:44 | XMS_ITS | Encounter Summary ---
Author Organization [facility] Address [address] [place] [address] Care Team Providers Care Salesforce Specialist Name Role Phone Segundo Mcclelland MD Unavailable [phone] Segundo Mcclelland MD Unavailable [phone] Qamar Jackson MD Unavailable Segundo Mcclelland MD Primary Care Provider + Gregorio Dalton PA-C Unavailable [phone] Kingsley Garcia MD Unavailable + [phone] Segundo Mcclelland MD Unavailable [phone] Master Shea PA-C Unavailable Allyssa Justice MD Unavailable [phone] Genaro Christian MD Unavailable [phone] Master Shea PA-C Unavailable Sienna Guillermo DO Unavailable [phone] Allyssa Justice MD Unavailable [phone] Declan Leavitt MD Unavailable Ugo Ochoa MD Unavailable Encounter Details Date Type Department Care Team (Late st Contact Info) Description 06/02/2024 Telephone [facility] [address] [place] [address] [place] [address] [place] [address] Social History Tobacco Use Types Packs/Day [...] AM CDT 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 [address] [place] [place] [address] 02/27/2025 10:40 AM CDT Virtual Visit [facility] [address] [facility] [place] [phone] Allyssa Justice MD 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 Assessment Noted Time PHQ-9 Depression Total Score: 4 02/21/20 24 1:54 PM CDT documented as of this encounter Care Teams Salesforce Specialist Relationship Specialty Start [place] [address] [address] [address] PCP - General Family Medicine 04/22/23 [place] [address] [address] [address] Assigned Pain Medication Provider 12/07/22 [place] [address] [address] [address] Assigned PCP 01/23/23 [place] [address] [place] [address] Assigned Musculoskeletal Provider 01/23/23 09/19/24 Gregorio Dalton PA-C [address] [address] Assigned Surgical Provider 05/22/23 07/20/24 Kingsley Garcia MD [address] [place] [address] Assigned Heart and Vascular Provider 08/07/23 [place] [address] [address] [address] Family Medicine 09/10/23 Master Shea PA-C [address] [place] [address] Physician Fourdrinier Tender Gastroenterology 09/10/[address] [facility] [address] [place] [address] Hematology & Oncology 12/10/23 Genaro Christian MD [address] [place], [place] [address] Cardiovascular Disease 12/22/23 Master Shea PA-C [address] [place] [address] Assigned Gastroenterology Provider 12/23/23 Sienna Guillermo DO [address] [place] [address] Physician Cardiovascular Disease 01/18/[address] [facility] [address] [place] [address] Assigned Cancer Care Provider 03/21/24 Declan Leavitt MD [address] [address] [place] [address] Assigned Surgical Provider 07/21/24 Ugo Ochoa MD [address] [place], [place] [id number] Assigned Neuroscience Provider 09/20/24 documented as of this encounter
--- OUTSIDE RECORDS SUMMARY | 2024-09-21 22:44 | XMS_ITS | Encounter Summary ---
Author Organization [facility] Address [facility] [place] [address] Care Team Providers Care Envelope Stuffer Name Role Phone Segundo Mcclelland MD Unavailable [phone] Segundo Mcclelland MD Unavailable [phone] Qamar Jackson MD Unavailable Segundo Mcclelland MD Primary Care Provider + Gregorio Dalton PA-C Unavailable [phone] Kingsley Garcia MD Unavailable + [phone] Segundo Mcclelland MD Unavailable [phone] Master Shea PA-C Unavailable Allyssa Justice MD Unavailable [phone] Genaro Christian MD Unavailable [phone] Master Shea PA-C Unavailable Sienna Guillermo DO Unavailable [phone] Allyssa Justice MD Unavailable [phone] Encounter Details Date Type Department Care Team (Late st Contact Info) Description 06/19/2024 8:20 PM CDT Ancillary Procedure [address] [phone] Casper Ny MD Social History Tobacco Use Types Packs/Day Years [...] CDT 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 Gender Identity Female 05/26/2021 10:37 AM CDT [...] Info) Description 02/20/2025 10:20 AM CDT Appointment [facility] Imaging [address] [place] [address] Allyssa Justice MD [facility] [address] [place] [address] 02/27/2025 10:40 AM CDT Virtual Visit [facility] [address] [facility] Medical [facility]tr [facility] [place] [phone] Allyssa Justice MD [facility] [address] [place] [address] Pending Results Name Type Priority Associated Diagnoses Date /Time POC US GUIDANCE NEEDLE PLACEMENT Imaging STAT 06/19/2024 7:56 PM CDT documented as of this encounter Visit Diagnoses Not on file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 Assessment Noted Time PHQ-9 Depression Total Score: 4 02/21/20 24 1:54 PM CDT documented as of this encounter Care Teams Envelope Stuffer Relationship Specialty Start [place] [address] [address] [address] PCP - General Family Medicine 04/22/23 [place] [address] [address] [address] Assigned Pain Medication Provider 12/07/22 [place] [address] [address] [address] Assigned PCP 01/23/23 [place] [address] [place] [address] Assigned Musculoskeletal Provider 01/23/23 09/19/24 Gregorio Dalton PA-C [address] [place] [address] Assigned Surgical Provider 05/22/23 07/20/24 Kingsley Garcia MD [address] [place] [address] Assigned Heart and Vascular Provider 08/07/23 [place] [address] [place] [address] Family Medicine 09/10/23 Master Shea PA-C [address] [place] [address] Physician Developer Designer Gastroenterology 09/10/23 Allyssa Justice MD [facility] [address] [place] [address] Hematology & Oncology 12/10/23 Genaro Christian MD [address] [place] [address] Cardiovascular Disease 12/22/23 Master Shea PA-C [address] [place] [address] Assigned Gastroenterology Provider 12/23/23 Sienna Guillermo DO [address] [place] [address] Physician Cardiovascular Disease 01/18/24 Allyssa Justice MD [facility] [address] [place] [address] Assigned Cancer Care Provider 03/21/24 documented as of this encounter
--- OUTSIDE RECORDS SUMMARY | 2024-09-21 22:44 | XMS_ITS | Encounter Summary ---
Author Organization [place] Address [address] [place] [address] Care Team Providers Care Performance Test Consultant Name Role Phone Segundo Mcclelland MD Unavailable [phone] Segundo Mcclelland MD Unavailable [phone] Qamar Jackson MD Unavailable Segundo Mcclelland MD Primary Care Provider + Gregorio Dalton PA-C Unavailable +[phone] Kingsley Garcia MD Unavailable + [phone] Segundo Mcclelland MD Unavailable +[phone] Master Shea PA-C Unavailable Allyssa Justice MD Unavailable [phone] Genaro Christian MD Unavailable + [phone] Master Shea PA-C Unavailable Sienna Guillermo DO Unavailable +[phone] Allyssa Justice MD Unavailable [phone] Encounter Details Date Type Department Care Team (Late st Contact Info) Description 06/13/2024 [facility] [address] [address] [place] [address] [place] [address] Social History Tobacco Use Types Packs/Day Years [...] AM CDT 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 Mcclelland high priority. documented in this encounter Plan of Treatment Upcoming Encounters Date Type Department Care Team (Late st Contact Info) Description 02/20/2025 10:20 AM CDT Appointment [facility] [place] [facility] [address] [place] [address] Allyssa Justice MD [facility] [address] [place] [address] 02/27/2025 10:40 AM CDT Virtual Visit [facility] [address], [place] [address] [facility] Ctr [place] [phone] Allyssa Justice MD [facility] [address] [place] [address] documented as of this encounter Visit Diagnoses Not on file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 Assessment Noted Time PHQ-9 Depression Total Score: 4 02/21/20 24 1:54 PM CDT documented as of this encounter Care Teams Performance Test Consultant Relationship Specialty Start [place] [address] [address] [address] PCP - General Family Medicine 04/22/23 [place] [address] [address] [address] Assigned Pain Medication Provider 12/07/22 [place] [address] [place] [address] Assigned PCP 01/23/23 [place] [address] [place] [address] Assigned Musculoskeletal Provider 01/23/23 09/19/24 Gregorio Dalton PA-C [address] [place] [address] Assigned Surgical Provider 05/22/23 07/20/24 Kingsley Garcia MD [address] [place] [address] Assigned Heart and Vascular Provider 08/07/23 [place] [address] [place] [address] Family Medicine 09/10/23 Master Shea PA-C [address] [facility] [place] [address] Physician Die Trimmer Gastroenterology 09/10/23 Allyssa Justice MD [facility] [address] [place] [address] Hematology & Oncology 12/10/23 Genaro Christian MD [address] [place] [address] Cardiovascular Disease 12/22/23 Master Shea PA-C [address] [place] [address] Assigned Gastroenterology Provider 12/23/23 Sienna Guillermo DO [address] [place] [address] Physician Cardiovascular Disease 01/18/24 Allyssa Justice MD [facility] [address] [place] [address] Assigned Cancer Care Provider 03/21/24 documented as of this encounter
--- OUTSIDE RECORDS SUMMARY | 2024-09-21 22:44 | XMS_ITS | Encounter Summary ---
Author Organization [facility] Address [address] [place] [address] Care Team Providers Care Pleat Patternmaker Name Role Phone Segundo Mcclelland MD Unavailable [phone] Segundo Mcclelland MD Unavailable [phone] Qamar Jackson MD Unavailable Segundo Mcclelland MD Primary Care Provider + Gregorio Dalton PA-C Unavailable +[phone] Kingsley Garcia MD Unavailable + [phone] Segundo Mcclelland MD Unavailable [phone] Master Shea PA-C Unavailable Allyssa Justice MD Unavailable [phone] Genaro Christian MD Unavailable + [phone] Master Shea PA-C Unavailable Sienna Guillermo DO Unavailable +[phone] Allyssa Justice MD Unavailable [phone] Reason for Visit * Reason Onset Date Comments Orders 06/15/2024 Encounter Details Date Type Department Care Team (Late st Contact Info) Description 06/15/2024 Telephone [facility] [address] [place] [address] [place] [address] [place] [address] Orders Social History Tobacco Use Types Packs/Day [...] AM CDT 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 Mcclelland to discuss ongoing home infusion orders. Patient has had multiple hospitalizations recently and Bharat would like to speak about her ongoing care. Bharat can be reached directly at [phone]. Routing message to Dr. Mcclelland. Jolie Solomon RN on 06/15/2024 at 12:09 PM documented in this encounter Plan of Treatment Upcoming Encounters Date Type Department Care Team (Late st Contact Info) Description 02/20/2025 10:20 AM CDT Appointment [facility] [address] [place] [phone] Allyssa Justice MD [facility] [address] [place] [address] 02/27/2025 10:40 AM CDT Virtual Visit [facility] [address], [address] [facility] Medical Ctr [place] [phone] Allyssa Justice MD [facility] [address] [place] [address] documented as of this encounter Visit Diagnoses Not on file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 Assessment Noted Time PHQ-9 Depression Total Score: 4 02/21/20 24 1:54 PM CDT documented as of this encounter Care Teams Pleat Patternmaker Relationship Specialty Start [place] [address] [address] [address] PCP - General Family Medicine 04/22/23 [place] [address] [address] 2666668 Assigned Pain Medication Provider 12/07/22 [place] [address] [address] [address] Assigned PCP 01/23/23 [place] [address] [place] [address] Assigned Musculoskeletal Provider 01/23/23 09/19/24 Gregorio Dalton PA-C [address] [address] Assigned Surgical Provider 05/22/23 07/20/24 Kingsley Garcia MD [address] [place] [address] Assigned Heart and Vascular Provider 08/07/23 [place] [address] [address] [address] Family Medicine 09/10/23 Master Shea PA-C [address] [place] [address] Physician Cloth Pattern Maker Gastroenterology 09/10/23 Allyssa Justice MD [facility] [address] [place] [address] Hematology & Oncology 12/10/23 Genaro Christian MD 6 [place], [place] [address] Cardiovascular Disease 12/22/23 Master Shea PA-C [address] [place] [address] Assigned Gastroenterology Provider 12/23/23 Sienna Gulilermo DO [address] [place] [address] Physician Cardiovascular Disease 01/18/24 lAlyssa Justice MD [facility] [address] [place] [address] Assigned Cancer Care Provider 03/21/24 documented as of this encounter
--- OUTSIDE RECORDS SUMMARY | 2024-09-21 22:44 | XMS_ITS | Encounter Summary ---
Author Organization [facility] Address [address] [place] [address] Care Team Providers Care Jewel Hole Gauger Name Role Phone Segundo Mcclelland MD Unavailable [phone] Segundo Mcclelland MD Unavailable [phone] Qamar Jackson MD Unavailable Segundo Mcclelland MD Primary Care Provider + Gregorio Dalton PA-C Unavailable [phone] Kingsley Garcia MD Unavailable + [phone] Segundo Mcclelland MD Unavailable [phone] Master Shea PA-C Unavailable Allyssa Justice MD Unavailable [phone] Genaro Christian MD Unavailable + [phone] Master Shea PA-C Unavailable Sienna Guillermo DO Unavailable [phone] Allyssa Justice MD Unavailable [phone] Declan Leavitt MD Unavailable Ugo Ochoa MD Unavailable Encounter Details Date Type Department Care Team (Late st Contact Info) Description 05/31/2024 MyC Medical Advice [facility] [address] [place] [address] Angelica Holt Social History Tobacco Use Types Packs/Day Years [...] AM CDT 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 Gender Identity Female 05/26/2021 10:37 AM [...] AM CDT Appointment [facility] [address] [address] [place] [phone] Allyssa Justice MD [facility] [address] [place] [address] 02/27/2025 10:40 AM CDT Virtual Visit [facility] [place] [address], [address] [facility] Medical Ctr [place] [phone] Allyssa Justice MD [facility] [address] [place] [address] documented as of this encounter Visit Diagnoses Not on file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 Assessment Noted Time PHQ-9 Depression Total Score: 4 02/21/20 24 1:54 PM CDT documented as of this encounter Care Teams Jewel Hole Gauger Relationship Specialty Start [place] [address] [address] [address] PCP - General Family Medicine 04/22/23 [place] [address] [address] [place] [address] Assigned Pain Medication Provider 12/07/22 [place] [address] [address] [address] Assigned PCP 01/23/23 [place] [address] [facility] [address] [place] [address] Assigned Musculoskeletal Provider 01/23/23 09/19/24 Gregorio Dalton PA-C [address] [place] [address] Assigned Surgical Provider 05/22/23 07/20/24 Kingsley Garcia MD [address] [place] [address] Assigned Heart and Vascular Provider 08/07/23 [place] [address] [place] [address] Family Medicine 09/10/23 Master Seha PA-C [address] [place] [place] [address] Physician Mainspring Barrel Assembly Cleaner Gastroenterology 09/10/23 Allyssa Justice MD [facility] [address] [place] [address] Hematology & Oncology 12/10/23 Genaro Christian MD [address] [place] [address] Cardiovascular Disease 12/22/23 Master Shea PA-C [address] [place] [address] Assigned Gastroenterology Provider 12/23/23 Sienna Guillermo DO [address] [place] [address] Physician Cardiovascular Disease 01/18/24 Allyssa Justice MD [facility] [address] [place] [address] Assigned Cancer Care Provider 03/21/24 Declan Leavitt MD [address] [place] [address] [place] [address]04[address] Assigned Surgical Provider 07/21/24 Ugo Ochoa MD [address] [place], [place] [address] Assigned Neuroscience Provider 09/20/24 documented as of this encounter
--- OUTSIDE RECORDS SUMMARY | 2024-09-21 22:44 | XMS_ITS | Encounter Summary ---
Author Organization [place] Address [address] [place] [address] Care Team Providers Care Sales Apprentice Name Role Phone Segundo Mcclelland MD Unavailable [phone] Segundo Mcclelland MD Unavailable [phone] Qamar Jackson MD Unavailable Segundo Mcclelland MD Primary Care Provider + Gregorio Dalton PA-C Unavailable [phone] Kingsley Garcia MD Unavailable + [phone] Segundo Mcclelland MD Unavailable [phone] Master Shea PA-C Unavailable Allyssa Justice MD Unavailable [phone] Genaro Christian MD Unavailable + [phone] Master Shea PA-C Unavailable Sienna Guillermo DO Unavailable [phone] Allyssa Justice MD Unavailable [phone] Declan Leavitt MD Unavailable Ugo Ochoa MD Unavailable Encounter Details Date Type Department Care Team (Late st Contact Info) Description 06/15/2024 MyC Medical Advice [facility] [address] [facility] [place] [address] [place] [address] [address] [facility] [place] [id number] Social History Tobacco Use Types Packs/Day Years [...] AM CDT 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 ER notes state patient left AMA. Routing to provider to update. Jolie Solomon RN on 06/15/2024 at 7:00 AM documented in this encounter Plan of Treatment Upcoming Encounters Date Type Department Care Team (Late st Contact Info) Description 02/20/2025 10:20 AM CDT Appointment [facility] [place] [facility] [address] [place] [address] [place] [phone] Allyssa Justice MD [facility] [address] [place] [address] 02/27/2025 10:40 AM CDT Virtual Visit [facility] [address] [facility] Medical Ctr [place] [phone] Allyssa Justice MD [facility] [address] [place] [address] [place] [address] documented as of this encounter Visit Diagnoses Not on file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 Assessment Noted Time PHQ-9 Depression Total Score: 4 02/21/20 24 1:54 PM CDT documented as of this encounter Care Teams Sales Apprentice Relationship Specialty Start [place] [address] [address] [address] PCP - General Family Medicine 04/22/23 [place] [address] [place] [address] Assigned Pain Medication Provider 12/07/22 [place] [address] [place] [address] Assigned PCP 01/23/23 [place] [address] [place] [address] Assigned Musculoskeletal Provider 01/23/23 09/19/24 Gregorio Dalton PA-C [address] [place] [address] Assigned Surgical Provider 05/22/23 07/20/24 Kingsley Garcia MD [address] [place] [address] Assigned Heart and Vascular Provider 08/07/23 [place] [address] [place] [address] Family Medicine 09/10/23 Master Shea PA-C [address] [place] [address] Physician Habilitation Worker Gastroenterology 09/10/23 Allyssa Justice MD [facility] [address] [place] [address] Hematology & Oncology 12/10/23 Genaro Christian MD [address] [place] [address] Cardiovascular Disease 12/22/23 Master Shea PA-C [address] [place] [address] Assigned Gastroenterology Provider 12/23/23 Sienna Guillermo DO [address] [place] [address] Physician Cardiovascular Disease 01/18/24 Allyssa Justice MD [facility] [address] [place] [address] Assigned Cancer Care Provider 03/21/24 Declan Leavitt MD [address] [address] [place] [address]60[address] Assigned Surgical Provider 07/21/24 Ugo Ochoa MD [address] [place], [place] [address] Assigned Neuroscience Provider 09/20/24 documented as of this encounter
--- OUTSIDE RECORDS SUMMARY | 2024-09-21 22:44 | XMS_ITS | Encounter Summary ---
Author Organization [place] Address [address] [place] [address] Care Team Providers Care Accountant Name Role Phone Segundo Mcclelland MD Unavailable [phone] Segundo Mcclelland MD Unavailable [phone] Qamar Jackson MD Unavailable Segundo Mcclelland MD Primary Care Provider + Gregorio Dalton PA-C Unavailable +[phone] Kingsley Garcia MD Unavailable + [phone] Segundo Mcclelland MD Unavailable [phone] Master Shea PA-C Unavailable Allyssa Justice MD Unavailable [phone] Genaro Christian MD Unavailable + [phone] Master Shea PA-C Unavailable Sienna Guillermo DO Unavailable [phone] Allyssa Justice MD Unavailable [phone] Reason for Referral * Consultation (Emergency: 1-2 Days) - Pending Review Specialty Diagnoses / Procedures Referred By Contzbigniew t Referred To Contact Surgery Diagnoses Intractable [place] [address] [place] [address] Phone: tel: fax: Referral ID Status Reason Start Date Expiration Date V isits Requested Visits Authorized [id number] Pending Review 06/19/2024 06/19/2025 1 1 Question Answer Reason for Referral: Other My Clinical Question Is: J-tube placement Preferred Location: [facility] Scheduling Instructions: [facility] will call you to coordinate your care as prescribed by your provider. If you don't hear from a employment program representative within 2 business days, please call . Additional Information: Pt needs j-tube urgently, and we've lost days because I mistakenly put in an IR referral Comments Please be aware that coverage of these services is subject to the terms and limitations of your health insurance plan. Call member services at your health plan with any benefit or coverage questions. [facility] will call you to coordinate your care as prescribed by your provider. If you don't hear from a employment program representative within 2 business days, please call . Encounter Details Date Type Department Care Team (Late st Contact Info) Description 06/19/[address] 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 [address] [facility] [address] [place] [phone] Allyssa Justice MD [facility] [address] [place] [address] 02/27/2025 10:40 AM CDT Virtual Visit [place] [phone] [facility] Ctr [place] [address] Allyssa Justice MD [place] [id number] [place] [address] [place] [address] Scheduled Referrals Name Type Priority Associated Diagnoses Orde r Schedule Adult Gen Surg Multimedia Author Referral Referral Emergency: 1-2 Days Intractable nausea and vomiting Expected: 06/19/2024 (Approximate), Expires: 06/19/2025 documented as of this encounter Visit Diagnoses Diagnosis Intractable nausea and vomiting- Primary Persistent vomiting 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 Assessment Noted Time PHQ-9 Depression Total Score: 4 02/21/20 1:54 PM CDT documented as of this encounter Care Teams Accountant Relationship Specialty Start [place] [address] [address] [address] PCP - General Family Medicine 04/22/23 [place] [address] [place] [address] Assigned Pain Medication Provider 12/07/22 [place] [address] [address] [address] Assigned PCP 01/23/23 [place] [address] [place] [place] [address] Assigned Musculoskeletal Provider 01/23/23 09/19/24 Gregorio Dalton PA-C [address] [address] Assigned Surgical Provider 05/22/23 07/20/24 Kingsley Garcia MD [address] [place] [address] Assigned Heart and Vascular Provider 08/07/23 [place] [address] [address] [address] Family Medicine 09/10/23 Master Shea PA-C [address] [place] [address] Physician Burlap Man Gastroenterology 09/10/23 Allyssa Justice MD [facility] [address] [place] [address] Hematology & Oncology 12/10/23 Genaro Christian MD [address] [place] [address] Cardiovascular Disease 12/22/23 Master Shea PA-C [address] [place] [address] Assigned Gastroenterology Provider 12/23/23 Sienna Guillermo DO [address] [place] [address] Physician Cardiovascular Disease 01/18/24 Allyssa Justice MD [facility] [address] [place] [address] Assigned Cancer Care Provider 03/21/24 documented as of this encounter
--- OUTSIDE RECORDS SUMMARY | 2024-09-21 22:44 | XMS_ITS | Encounter Summary ---
Author Organization [place] Address [address] [place] [address] Care Team Providers Care Hotel Casino Floorperson Name Role Phone Segundo Mcclelland MD Unavailable [phone] Segundo Mcclelland MD Unavailable [phone] Qamar Jackson MD Unavailable Segundo Mcclelland MD Primary Care Provider + Gregorio Dalton PA-C Unavailable +[phone] Kingsley Garcia MD Unavailable + [phone] Segundo Mcclelland MD Unavailable [phone] Master Shea PA-C Unavailable Allyssa Justice MD Unavailable [phone] Genaro Christian MD Unavailable + [phone] Master Shea PA-C Unavailable Sienna Guillermo DO Unavailable +[phone] Allyssa Justice MD Unavailable [phone] Encounter Details Date Type Department Care Team (Late st Contact Info) Description 06/14/2024 [facility] [address] [address] [place] [address] [place] [address] Nausea and vomiting, unspecified vomiting type (Primary Dx) Social History Tobacco Use Types [...] AM CDT 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 Encouraged to go to ED based on symptoms I passed out and cracked my teeth because I cant stand up without the qorld spinning and I am still throwing up blood. So what amI supposed to do? Patient states she won't go to the Emergency Department unless Segundo Mcclelland MD says so. Please advise. Alanna Kruger RN * Telephone Encounter - Alanna Kruger RN - 06/19/2024 10:53 AM CDT Incoming call from patient. Has not heard from IR yet. Wondering if the urgency of the referral canbe increased from urgent? Alanna Kruger RN * Telephone Encounter - Jolie Solomon RN - 06/16/2024 1:38 PM CDT Order has been received by IR. They can schedule patient for Wednesday or Wednesday, the case is still under review. They will reach out to patient. Any advice for patient in the mean time? Should patientgo back to ER if unable to keep fluids down with continuous vomiting? Jolie Solomon RN on 06/16/2024 at 1:41 PM * Telephone Encounter - Jolie Solomon RN - 06/14/2024 5:25 PM CDT Routing to provider. Jolie Solomon RN on 06/14/2024 at 5:25 PM * Telephone Encounter - Donato Argueta RN - 06/14/2024 11:20 AM CDT Received call from [facility], provider is requesting to speak with Dr. Mcclelland. Reji luna/ nurse staff at . Please contact ED provider at [phone] Dr. Efe Means RN 06/14/2024 at 11:26 AM * Telephone Encounter - Jolie Solomon RN - 06/14/2024 10:46 AM CDT Routing to PCP as FYI. Pt currently at [facility]. Jolie Solomon RN on 06/14/2024 at 10:47 AM documented in this encounter Plan of Treatment Upcoming Encounters Date Type Department Care Team (Late st Contact Info) Description 02/20/2025 10:20 AM CDT Appointment [facility] [address] [place] [address] Allyssa Justice MD [facility] [address] [place] [address] [place] [id number] 02/27/2025 10:40 AM CDT Virtual Visit [facility] [address], [place] [address] [facility] [place] [phone] Allyssa Justice MD [facility] [address] [place] [address] [place] [address] documented as of this encounter Visit Diagnoses Diagnosis Nausea and vomiting, unspecified vomiting type- Primary 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 Assessment Noted Time PHQ-9 Depression Total Score: 4 02/21/20 24 1:54 PM CDT documented as of this encounter Care Teams Hotel Casino Floorperson Relationship Specialty Start [place] [address] [place] [address] PCP - General Family Medicine 04/22/23 [place] [address] [place] [address] Assigned Pain Medication Provider 12/07/22 [place] [address] [place] [address] Assigned PCP 01/23/23 [place] [address] [place] [address] Assigned Musculoskeletal Provider 01/23/23 09/19/24 Gregorio Dalton PA-C [address] [place] [address] Assigned Surgical Provider 05/22/23 07/20/24 Kingsley Garcia MD [address] [place] [address] Assigned Heart and Vascular Provider 08/07/23 [place] [address] [place] [address] Family Medicine 09/10/23 Master Shea PA-C [address] [place] [address] Physician Concreting Supervisor Gastroenterology 09/10/23 Allyssa Justice MD [facility] [address] [address] [place] [address] Hematology & Oncology 12/10/23 Genaro Christian MD [address] [place] [address] Cardiovascular Disease 12/22/23 Master Shea PA-C [address] [place] [address] Assigned Gastroenterology Provider 12/23/23 Sienna Guillermo DO [address] [place] [address] Physician Cardiovascular Disease 01/18/24 Allyssa Justice MD [facility] [address] [place] [address] Assigned Cancer Care Provider 03/21/24 documented as of this encounter
--- OUTSIDE RECORDS SUMMARY | 2024-09-21 22:44 | XMS_ITS | Encounter Summary ---
Author Organization [place] Address [address] [place] [address] Care Team Providers Care Windshield Wiper Repairer Name Role Phone Segundo Mcclelland MD Unavailable [phone] Segundo Mcclelland MD Unavailable [phone] Qamar Jackson MD Unavailable Segundo Mcclelland MD Primary Care Provider + Gregorio Dalton PA-C Unavailable [phone] Kingsley Garcia MD Unavailable + [phone] Segundo Mcclelland MD Unavailable [phone] Master Shea PA-C Unavailable Allyssa Justice MD Unavailable [phone] Genaro Christian MD Unavailable [phone] Master Shea PA-C Unavailable Sienna Guillermo DO Unavailable +[phone] Allyssa Justice MD Unavailable [phone] Declan Leavitt MD Unavailable Encounter Details Date Type Department Care Team (Late st Contact Info) Description 05/25/2024 Medical Correspondence [facility] [address] 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 Gender Identity Female 05/26/2021 10:37 AM CDT [...] 02/20/2025 10:20 AM CDT Appointment [facility] Imaging [address] [place] [address] [place] [address] Allyssa Justice MD [facility] [address] [place] [address] [place] [address] 02/27/2025 10:40 AM CDT Virtual Visit [facility] [address] [place] [address] [facility] [place] [phone] Allyssa Justice MD [facility] [address] [place] [address] [place] [address] documented as of this encounter Visit Diagnoses Not on file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 Assessment Noted Time PHQ-9 Depression Total Score: 4 02/21/20 24 1:54 PM CDT documented as of this encounter Care Teams Windshield Wiper Repairer Relationship Specialty Start [place] [address] [place] [address] PCP - General Family Medicine 04/22/23 [place] [address] [place] [address] Assigned Pain Medication Provider 12/07/22 [place] [address] [place] [address] Assigned PCP 01/23/23 [place] [address] [place] [address] [place] [address] Assigned Musculoskeletal Provider 01/23/23 09/19/24 Gregorio Dalton PA-C [address] [place] [address] Assigned Surgical Provider 05/22/23 07/20/24 Kingsley Garcia MD [address] [place] [address] Assigned Heart and Vascular Provider 08/07/23 [place] [address] [place] [address] Family Medicine 09/10/23 Master Shea PA-C [address] [place] [place] [address] Physician Renal Technician Gastroenterology 09/10/23 Allyssa Justice MD [facility] [address] [place] [address] [place] [address] Hematology & Oncology 12/10/23 Genaro Christian MD [address] [place] [address] Cardiovascular Disease 12/22/23 Master Shea PA-C [address] [place] [address] Assigned Gastroenterology Provider 12/23/23 Sienna Guillermo DO [address] [place] [address] Physician Cardiovascular Disease 01/18/24 Allyssa Justice MD [facility] [address] [address] [place] [address] Assigned Cancer Care Provider 03/21/24 Declan Leavitt MD [address] [place] [address] Assigned Surgical Provider 07/21/24 documented as of this encounter
--- OUTSIDE RECORDS SUMMARY | 2024-09-21 22:44 | XMS_ITS | Encounter Summary ---
Author Organization [place] Address [address] [place] [address] Care Team Providers Care Medicine Man Name Role Phone Segundo Mcclelland MD Unavailable [phone] Segundo Mcclelland MD Unavailable [phone] Qamar Jackson MD Unavailable Segundo Mcclelland MD Primary Care Provider + Gregorio Dalton PA-C Unavailable [phone] Kingsley Garcia MD Unavailable + [phone] Segundo Mcclelland MD Unavailable [phone] Master Shea PA-C Unavailable Allyssa Justice MD Unavailable [phone] Genaro Christian MD Unavailable + [phone] Master Shea PA-C Unavailable Sienna Guillermo DO Unavailable [phone] Allyssa Justice MD Unavailable [phone] Encounter Details Date Type Department Care Team (Late st Contact Info) Description 06/19/[address] [address] [place] [address] [place] [address] Social History Tobacco Use Types Packs/Day Years [...] in an abandoned building, in an overnight custodial, or couch-surfing.) Yes 08/26/2023 Are you worried [...] AM CDT 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 documented in this encounter Plan of Treatment Upcoming Encounters Date Type Department Care Team (Late st Contact Info) Description 02/20/2025 10:20 AM CDT Appointment [facility] Imaging [address] [place] [address] [place] [address] Allyssa Justice MD [facility] [address] [place] [address] 02/27/2025 10:40 AM CDT Virtual Visit [facility] [address] [place] [address] [facility] [place] [address] Allyssa Justice MD [facility] [address] [place] [address] [place] [address] documented as of this encounter Visit Diagnoses Not on file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 Assessment Noted Time PHQ-9 Depression Total Score: 4 02/21/20 1:54 PM CDT documented as of this encounter Care Teams Medicine Man Relationship Specialty Start [place] [address] [place] [address] PCP - General Family Medicine 04/22/23 [place] [address] [place] [address] Assigned Pain Medication Provider 12/07/22 [place] [address] [place] [address] Assigned PCP 01/23/23 [place] [address] [place] [address] Assigned Musculoskeletal Provider 01/23/23 09/19/24 Gregorio Dalton PA-C [address] [place] [address] Assigned Surgical Provider 05/22/23 07/20/24 Kingsley Garcia MD [address] [place] [address] Assigned Heart and Vascular Provider 08/07/23 [place] [address] [place] [address] Family Medicine 09/10/23 Master Shea PA-C [address] [place] [address] Physician Payment Specialist Gastroenterology 09/10/23 Allyssa Justice MD [facility] [address] [place] [address] Hematology & Oncology 12/10/23 Genaro Christian MD 6 [place] [address] Cardiovascular Disease 12/22/23 Master Shea PA-C [address] [place] [address] Assigned Gastroenterology Provider 12/23/23 Sienna Guillermo DO [address] [place] [address] Physician Cardiovascular Disease 01/18/24 Allyssa Justice MD [facility] [address] [place] [address] [place] [address] Assigned Cancer Care Provider 03/21/24 documented as of this encounter
--- OUTSIDE RECORDS SUMMARY | 2024-09-21 22:44 | XMS_ITS | Encounter Summary ---
Author Organization [place] Address [address] [place] [address] Care Team Providers Care Dye And Chemical Coordinator Name Role Phone Segundo Mcclelland MD Unavailable [phone] Segundo Mcclelland MD Unavailable [phone] Qamar Jackson MD Unavailable Segundo Mcclelland MD Primary Care Provider + Gregorio Dalton PA-C Unavailable +[phone] Kingsley Garcia MD Unavailable + [phone] Segundo Mcclelland MD Unavailable [phone] Master Shea PA-C Unavailable Allyssa Justice MD Unavailable [phone] Genaro Christian MD Unavailable Master Shea PA-C Unavailable Sienna Guillermo DO Unavailable +[phone] Allyssa Justice MD Unavailable [phone] Reason for Visit * Reason Comments Back Pain Entered automaticall y based on patient selection in [employer]. Encounter Details Date Type Department Care Team (Late st Contact Info) Description 06/20/2024 8:30 AM CDT E-Visit [facility] [address] [place] [phone] [place] [address] [address] [place] [id number] Back Pain (Entered automatically based on ... 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 Gender Identity Female 05/26/2021 10:37 AM CDT Sexual Orientation Straight 05/26/2021 10 :37 AM CDT Occupation Industry Job Start Date Job End Date unemployed Not on file Not on file Not on file Not on file Not on file Not on file Not on file documented as of this encounter Miscellaneous Notes * Telephone Encounter - Segundo Mcclelland MD - 06/20/2024 12:48 PM CDT Provider E-Visit time total (minutes): 10 documented in this encounter Plan of Treatment Upcoming Encounters Date Type Department Care Team (Late st Contact Info) Description 02/20/2025 10:20 AM CDT Appointment [facility] Imaging [address] [place] [address] [place] [address] Allyssa Justice MD [facility] [address] [address] [place] [address] 02/27/2025 10:40 AM CDT Virtual Visit 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 Assessment Noted Time PHQ-9 Depression Total Score: 4 02/21/20 24 1:54 PM CDT documented as of this encounter Care Teams Dye And Chemical Coordinator Relationship Specialty Start [place] [address] [place] [address] PCP - General Family Medicine 04/22/23 [place] [address] [place] [place] [address] Assigned Pain Medication Provider 12/07/22 [place] [address] [place] [address] Assigned PCP 01/23/23 [place] [address] [place] [address] Assigned Musculoskeletal Provider 01/23/23 09/19/24 Gregorio Dalton PA-C [address] [place] [address] Assigned Surgical Provider 05/22/23 07/20/24 Kingsley Garcia MD [address] [place] [address] Assigned Heart and Vascular Provider 08/07/23 [place] [address] [place] [address] Family Medicine 09/10/23 Master Shea PA-C [address] [place] [address] Physician Senior Developer Gastroenterology 09/10/23 Allyssa Justice MD [facility] [address] [place] [address] Hematology & Oncology 12/10/23 Genaro Christian MD [address] [place] [address] Cardiovascular Disease 12/22/23 Master Shea PA-C [address] [place] [address] Assigned Gastroenterology Provider 12/23/23 Sienna Guillermo DO [address] [place] [address] Physician Cardiovascular Disease 01/18/24 Allyssa Justice MD [facility] [address] [place] [address] [place] [address] Assigned Cancer Care Provider 03/21/24 documented as of this encounter
--- OUTSIDE RECORDS SUMMARY | 2024-09-21 22:44 | XMS_ITS | Encounter Summary ---
Author Organization [place] Address [address] [place] [address] Care Team Providers Care Concert Promoter Name Role Phone Segundo Mcclelland MD Unavailable [phone] Segundo Mcclelland MD Unavailable [phone] Qamar Jackson MD Unavailable Segundo Mcclelland MD Primary Care Provider + Gregorio Dalton PA-C Unavailable +[phone] Kingsley Garcia MD Unavailable + [phone] Segundo Mcclelland MD Unavailable [phone] Master Shea PA-C Unavailable Allyssa Justice MD Unavailable [phone] Genaro Christian MD Unavailable + [phone] Master Shea PA-C Unavailable Sienna Guillermo DO Unavailable [phone] Allyssa Justice MD Unavailable [phone] Reason for Visit * Reason Onset Date Comments Call Back 05/25/2024 Requesting a ret urn call Encounter Details Date Type Department Care Team (Late st Contact Info) Description 05/25/[address] 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 Breanne stated that this can wait untilDr Mcclelland returns as Dr Alvares wants to work directly with Dr Mcclelland, not a covering provider or a RN. Rach [place] Durability Technician documented in this encounter Plan of Treatment Upcoming Encounters Date Type Department Care Team (Late st Contact Info) Description 02/20/2025 10:20 AM CDT Appointment [facility] Imaging [address] [place] [address] Allyssa Justice MD [facility] [address] [place] [address] 02/27/2025 10:40 AM CDT Virtual Visit [facility] [address] [facility] [place] [address] Allyssa Justice MD [facility] [address] [place] [address] documented as of this encounter Visit Diagnoses Not on file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 Assessment Noted Time PHQ-9 Depression Total Score: 4 02/21/20 24 1:54 PM CDT documented as of this encounter Care Teams Concert Promoter Relationship Specialty Start [place] [address] [place] [address] PCP - General Family Medicine 04/22/23 [place] [address] [place] [address] Assigned Pain Medication Provider 12/07/22 [place] [address] [place] [address] Assigned PCP 01/23/23 [place] [address] [place] [address] Assigned Musculoskeletal Provider 01/23/23 09/19/24 Gregorio Dalton PA-C [address] [place] [address] Assigned Surgical Provider 05/22/23 07/20/24 Kingsley Garcia MD [address] [place] [address] Assigned Heart and Vascular Provider 08/07/23 [place] [address] [place] [address] Family Medicine 09/10/23 Master Shea PA-C [address] [place] [address] Physician Early Childhood Gastroenterology 09/10/23 Allyssa Justice MD [facility] [address] [address] [place] [address] Hematology & Oncology 12/10/23 Genaro Christian MD 6 [place] [address] Cardiovascular Disease 12/22/23 Master Shea PA-C [address] [facility] [place] [address] Assigned Gastroenterology Provider 12/23/23 Sienna Guillermo DO [address] [place] [address] Physician Cardiovascular Disease 01/18/24 Allyssa Justice MD [facility] [address] [place] [address] Assigned Cancer Care Provider 03/21/24 documented as of this encounter
--- OUTSIDE RECORDS SUMMARY | 2024-09-21 22:44 | XMS_ITS | Encounter Summary ---
Author Organization [facility] Address [address] [place] [id number] Care Team Providers Care Line Crewman Name Role Phone Segundo Mcclelland MD Unavailable [phone] Segundo Mcclelland MD Unavailable [phone] Qamar Jackson MD Unavailable Segundo Mcclelland MD Primary Care Provider + Gregorio Dalton PA-C Unavailable [phone] Kingsley Garcia MD Unavailable [phone] Segundo Mcclelland MD Unavailable [phone] Master Shea PA-C Unavailable Allyssa Justice MD Unavailable [phone] Genaro Christian MD Unavailable [phone] Master Shea PA-C Unavailable Sienna Guillermo DO Unavailable [phone] Allyssa Justice MD Unavailable [phone] Reason for Visit * Reason Comments Syncope Encounter Details Date Type Department Care Team (Late st Contact Info) Description 06/19/2024 12:30 PM CDT - 06/20/2024 1:22 AM CDT Emergency [facility] Emergency Dept [address] [place] [phone] Malia Barajas MD [facility] [address] [place] [address] Casper Ny MD Syncope, unspecified syncope type; Anemia, unspecified type; Pain, dental Discharge Disposition: Home or Self [...] AM CDT Legal Sex Female 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 Gender Identity Female 05/26/2021 10:37 AM CDT Sexual Orientation Straight 05/26/2021 10 :37 AM CDT Occupation Industry Job Start Date Job End Date unemployed Not on file Not on file Not on file Not on file Not on file Not on file Not on file documented as of this encounter Last Filed Vital Signs Vital Sign Reading Time Taken Comments Blood Pressure 123/55 06/20/2024 1:07 AM CDT Pulse 110 06/20/2024 1:07 AM CDT Temperature 36.8 ??C (98.2 ??F) 06/20/2024 1:07 AM CD T Respiratory Rate 20 06/20/2024 1:07 AM CDT Oxygen Saturation 99% 06/20/2024 1:07 AM CDT Inhaled Oxygen Concentration - - Weight 102.1 kg (225 lb) 06/19/2024 12:35 PM CDT Height 167.6 cm (5' 6) 06/19/2024 12:35 PM CDT Body Mass Index 36.32 06/19/2024 12:35 PM CDT documented in this encounter Discharge Instructions * Discharge Instructions* Casper Ny MD - 06/19/2024 4:58 PM CDT Please return to the emergency department if you notice any lightheadedness, shortness of breath, chest pain, numbness or tingling, difficulty walking, severe headache or other acute changes. Please follow-up with your primary care doctor in the next 1-2 days. Dental Providers EMERGENCY DENTAL CARE [facility] [phone] Emergency Dental Care [facility] (Hours 9a-9p) [phone] [facility] [phone] [facility] [phone] REFERRALS [facility] [phone] [facility] [phone] [facility] [phone] DENTAL CLINICS Many of these clinics have reduced cost or payment plans, some take walk-ins. Call the clinic to get this information. [facility] [phone] [facility] [phone] [facility] [phone] [facility] [phone] [facility] [phone] [facility] [phone] [facility] (appointment only) [phone] [facility] [phone] [facility] [phone] [facility] [phone] [facility] [phone] [facility] [phone] [facility] [phone] [facility] (free tooth pulling Wednesday & Wednesday) [phone] [facility]: Adults [phone] Children [phone] Emergency [phone] [facility] [phone] [facility] [phone] [facility] [phone] Discharge Instructions Syncope Syncope (fainting) is a [...] is anything that worries you. Discharge Instructions Dental Pain You have been [...] cannot be sent through Care Everywhere. * Anemia (Northern Irish) * Blood Transfusions: General Info (Northern Irish) documented in this encounter Medications at Time [...] anxiety naloxone (NARCAN) 4 MG/0.1ML nasal spray [place] 4 mg into one nostril alternating nostrils once as needed for opioid reversal 06/28/2023 pantoprazole (PROTONIX) 40 MG EC tablet Take 40 mg by mouth daily sodium chloride 0.9% infusionIndication s:Gastroparesis Inject 1,000 mLs into the vein as needed for other (Wednesday with IV antibiotic) 85326 mL 06/02/2024 sucralfate (CARAFATE) 1 GM tabletIndications: [...] as of this encounter Progress Notes * Cassidy Rubalcava RN - 06/19/2024 8:41 PM CDT Nursing note Went back to ED 11 at 2034, pt not in the room, when asked the pt nurse, he said the provider was able to place a piv. Consult completed. * aCssidy Rubalcava RN - 06/19/2024 7:31 PM CDT NURSING NOTE VAT consulted for PIV placement for blood transfusion. The insurance writer went down to the ED 11, pt not available. Pt nurse does not know where pt is. The insurance writer waited for at least 5 mins and pt did not show up. The insurance writer knocked in the BR with not response. The insurance writer left because there is a lot of pt waiting for piv/ML placed. The insurance writer told pt nurse that she will [place] back later. * Milvia Chávez RN - 06/19/2024 5:51 PM CDT Another IV ultrasound placed by Rosaura Dave. A sample for type and screen was sent to Lab. Patient is complaining of jaw pain because she fell. Patient is demanding more narcotics and we are trying to follow her care plan. documented in this encounter ED Notes * Dayron Rollins RN - 06/20/2024 12:[address] test done. Patient was able to walk but preferred holding against the wall when walking. She states she feels weaker than usual and her head feels like is spinning but thinks she is okay. Requesting if she can dress up to leave * Dayron Rollins RN - 06/19/2024 7:45 PM CDT Patient was not in her bed during rounding, checked in the bathroom, it was locked from the inside.No response on knocking. After opening from the outside, patient was found lying down on her back. When asked if she fell, she stated that she could not remember what happened, she just remember feeling cold in her face while washing hands. C-collar applied and patient lifted to bed and back to room. Provider notified. * Milvia Chávez RN - 06/19/2024 6:29 PM CDT Iv done by ultrasound is not flashing. A consult to the vascular department done. * Milvia Chávez RN - 06/19/2024 4:38 PM CDT Patient complained of pain on her right axilla, she said there was a small bump on her skin and thepain was too much. I attempted to flush and get a blood sample, since lab called and they said the Type and screen collection tube was not signed by R.N. Patient is a very hard stick. 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 She denies bumping it or hitting her IV. * Sunni Presley RN - 06/19/2024 12:50 PM CDT Pt had episode of falling from WC to floor in ED Triage lobby, pt alert and oriented x4, opens eyesspontaneously, pt unsure if she passed out or fell from her body position in the WC, pt reports I am fine I need to go home, pt tearful, ED Provider Yeerika in Triage called to Triage floor to assess pt, ED MD Okay with assisting pt up off the ground vitals signs repeated - 132/77, HR 110, Pulse ox 100%. Pt roomed. * Jyotsna Emerson - 06/19/2024 12:36 PM CDT Pt presented to ed from home to be evaluated for syncope and tooth pain. Pt states that today she was getting up and fainted and hit her face on the corner of a chair. Pt endorses pn in her teeth on the right side. Pt fell last month as well and had abnormal labs so her pcp encouraged her to come in. Pt vomited in triage room and is nauseous. Cosigned by Sunni Presley RN at 06/19/2024 12:41 PM CDT Associated attestation - Sunni Presley RN - 06/19/2024 12:41 PM CDT Cosigned by Child [facility] Family Services Specialist RN * Malia Barajas MD - 06/19/2024 12:27 PM CDT Emergency Department Note History of Present Illness Chief Complaint Syncope HPI Sandi Lopez is a 38 year old female previously anticoagulated on Eliquis with history of hypertension, orthostatic syncope, pulmonary embolism, chronic pain syndrome, opioid dependence, and anemia who presents to the ED for evaluation of syncope and jaw pain. Patient reports a fall earlier this morning following syncopal episode in which she hit her face on the corner of a leather chair. She states she cracked teeth and endorses throbbing pain to the right side of the jaw. Notes hematemesis last night. She also had abnormal labs recently, potassium of 3.3 and hemoglobin of 7.4, and her PCP recommended she go to the ED for further evaluation. Patient had another syncopal episode in the lobby and reports she felt nauseous prior to loss of consciousness and hit the back of her head. Of note, patient has off of her blood thinner for the past month as she has been vomiting blood and required transfusion. Independent Historian None Review of External Notes I reviewed patient's Care Plan. Reviewed recent ER visits including 06/15/2024 and 06/14/2024 for near syncope, hematemesis etc. Past Medical History Medical History and Problem [...] loop electrode cervix excision Endoscopic retrograde cholangiopancreatography Esophagogastroduodenoscopy, combined x5 Vaginal hysterectomy Insert midline HE Insert PICC line IR bone biopsy vertebral IR chest port placement x2 IR lumbar puncture IR PICC placement x5 IR port check right IR port removal x2 Irrigation and debridement right foot, combined Laryngoscopy, esophagoscopy Oophorectomy, right Remove port vascular access Talar fracture surgery Tonsillectomy & adenoidectomy Transesophageal echocardiogram intraoperative Tubal ligation Lumbar discectomy Physical Exam Patient Vitals for the past 24 hrs: BP Temp Temp src Pulse Resp SpO2 Height Weight 06/19/24 1259 123/69 -- -- -- -- 100 % -- -- 06/19/24 1254 132/77 -- -- 110 -- 100 % -- -- 06/19/24 1235 127/55 -- -- 96 14 99 % 1.676 m (5' 6) 102.1 kg (225 lb) 06/19/24 1234 127/55 98.8 ??F (37.1 ??C) Temporal 99 20 99 % 1.676 m (5' 6) -- Physical Exam General: Resting on the bed. Head: No obvious trauma to head. Ears, Nose, Throat: External ears normal. Nose normal. No pharyngeal erythema, swelling or exudate.Midline uvula. Reports tenderness to palpation of the right upper molars with possible new cracked teeth. Eyes: Conjunctivae clear. Pupils are equal, round, and reactive. Neck: Normal range of motion. Neck supple. CV: Regular rate and rhythm. No murmurs. Respiratory: Effort normal and breath sounds normal. No wheezing or crackles. Gastrointestinal: Soft. No distension. There is no tenderness. Musculoskeletal: Normal range of motion. Non tender extremities to palpations. Nontender cervical, thoracic, lumbar spine without step-off or deformity. Neuro: Alert. Moving all extremities appropriately. Normal speech. CN II-XII grossly intact, no pronator drift, normal [id number]. Gross muscle strength intact of the proximal and distal bilateral upper and lower extremities. Sensation intact to light touch in all 4 extremities. Skin: Skin is warm and dry. No rash noted. Diagnostics Lab Results Labs Ordered and Resulted from Time of ED Arrival to Time of ED Departure COMPREHENSIVE METABOLIC PANEL - Abnormal Result Value Sodium 136 Potassium 4.9 Carbon Dioxide (CO2) 24 Anion Gap 8 Urea Nitrogen 22.2 (*) Creatinine 0.65 GFR Estimate >90 Calcium 8.7 (*) Chloride 104 Glucose 100 (*) Alkaline Phosphatase 164 (*) AST 22 ALT 33 Protein Total 7.7 Albumin 4.1 Bilirubin Total <0.2 CBC WITH PLATELETS AND DIFFERENTIAL - Abnormal WBC Count 7.4 RBC Count 3.19 (*) Hemoglobin 7.0 (*) Hematocrit 23.9 (*) MCV 75 (*) MCH 21.9 (*) MCHC 29.3 (*) RDW 18.0 (*) Platelet Count 539 (*) % Neutrophils 50 % Lymphocytes 40 % Monocytes 8 % Eosinophils 1 % Basophils 0 % Immature Granulocytes 0 NRBCs per 100 WBC 0 Absolute Neutrophils 3.7 Absolute Lymphocytes 3.0 Absolute Monocytes 0.6 Absolute Eosinophils 0.1 Absolute Basophils 0.0 Absolute Immature Granulocytes 0.0 Absolute NRBCs 0.0 TROPONIN T, HIGH SENSITIVITY - Normal Troponin T, High Sensitivity 6 PREPARE RED BLOOD CELLS (UNIT) TYPE AND SCREEN, ADULT TRANSFUSE RED BLOOD CELLS (UNIT) ABO/RH TYPE AND SCREEN Imaging No orders to display EKG ECG taken at 1229, ECG read at 1233 Normal sinus rhythm Low voltage QRS Cannot rule out Anterior infarct, age undetermined Abnormal ECG Rate 100 bpm. MA interval 152 ms. QRS duration 62 ms. QT/QTc 334/430 ms. P-R-T axes 47 10 30. Independent Interpretation None ED Course Medications Administered Medications HYDROmorphone (DILAUDID) tablet 2 mg (2 mg Oral $Given 06/19/24 1411) sodium chloride 0.9% BOLUS 1,000 mL (1,000 mLs Intravenous $New Bag 06/19/24 1410) diphenhydrAMINE (BENADRYL) 25 mg in sodium chloride 0.9 % 55.5 mL intermittent infusion (25 mg Intravenous $New Bag 06/19/24 1542) Procedures Procedures Discussion of Management Surgery, see below Gastroenterology, see below IR see below PCP ED Course ED Course as of 06/19/24 1755 WedJun 19, 2024 1320 I obtained history and examined the patient as noted above. [address] Alvares, GI, regarding the patient's history and presentation in the emergencydepartment today. He recommended a unit of blood and follow up for J tube outpatient with Dr Mcclelland. Patient has had numerous scopes and he did not feel that endoscopy would be appropriate at this time. They have never found anything on endoscopy. GI felt that a scope would be more harm than good at this point. Unclear where the bleeding is coming from. Concerned that recurrent anemia may be related to lines that patient has had. Plan had been to see how the hemoglobin trends while PICCs have been discontinued. 1420 Consented patient for blood transfusion. [address] Mcclelland about patient's complex care. He has been consulted with IR and generalsurgery to facilitate outpatient J-tube placement. This is his only concern for patient's visit today. He agrees with management. He will continue to facilitate outpatient management. [address] Frazier of General Surgery who put in a general surgery referral. They do place J tubes and outpatient would be appropriate 1519 I consulted with interventional radiology. They do not place j tubes. Outpatient surgery is appropriate. 1738 I rechecked the patient and explained findings. Patient is crying holding her jaw. She is requesting that we give her another dose of Dilaudid as she normally takes 2 to 4 mg of Dilaudid at home. She states that she is out of her home Dilaudid. Optional/Additional Documentation None Medical Decision Making / Diagnosis CMS Diagnoses: None MIPS None MDM Sandi Lopez is a 38 year old female who presents to the ER with a syncopal episode. Vitals are stable. Patient is chronically tachycardic. No fever, hypoxia, hypotension. Patient has numeroussyncopal episodes in the past. Broad differential was considered but I did evaluate her care plan as well which does state that syncope is a chronic issue for the patient. Broad differential was considered including but not limited to ACS, arrhythmia, anemia, electrolyte, metabolic, renal dysfunction, dehydration, stroke, intracranial hemorrhage, etc. I considered head CT given that she did hit her face but she had no loss consciousness. No change in her baseline vomiting. She is not currently on blood thinners. With shared decision-making, we opted to not pursue a head CT given the vomiting is not an acute pathology. There is no obvious bony tenderness on exam to indicate a facial fractureor cervical fracture. Able to clinically clear the C-spine. Patient agrees with not pursuing imaging given that she has had numerous images in the past. EKG shows sinus rhythm, no acute ischemic change. Troponin is within normal limits. Patient no chest pain or shortness of breath. I do not suspectACS or arrhythmia. I do not suspect PE given no shortness of breath or pleuritic pain. CMP shows noacute electrolyte, metabolic or renal dysfunction. BUN is slightly elevated. 1 L fluids were given. 1 tablet of oral Dilaudid was given for patient's dental pain. I will not give anything further. I do not suspect jaw fracture or other facial fracture that would require imaging. Rather I think she needs to follow-up with dentist for ongoing management. I am uncertain if these are new fractures ornot. There is no obvious abscess on examination to indicate I&D. I think patient needs to follow- up with a dentist. Patient has a very complex history of factitious disorder and overutilization of the emergency department. I have talked to her care team as her hemoglobin is slightly worse, witha hemoglobin of 7. She has history of chronic anemia. She is currently not on blood thinners. She has been scoped numerous times this month alone. There is never been a clear etiology of her vomitingblood. Endoscopy does not seem appropriate and was not recommended by GI. I also spoke with IR and general surgery, patient is to follow-up with general surgery for possible J-tube placement. There is no indication for emergent placement at this time. I spoke with her primary care doctor and his next intervention was to have a J-tube placed for hydration for the patient. It is difficult as patient does seem to utilize numerous emergency departments. We have given 1 unit transfusion in the emergency department. 1 dose of IV Benadryl prior to the transfusion. We spoke with blood bank there is no history of transfusion reaction although patient reports that she needed Benadryl previously. Following the transfusion the plan is for discharge home. I have made the patient aware she needs to follow-up with general surgery for the J- tube placement. There is no indication for admission or other emergent workup at this time. Rather she needs to follow-up with her outpatient providers. Dental clinics were provided in her discharge summary. Return precautions including worsening weakness, headaches etc. were provided. Patient is crying and holding her jaw. I was asked to speak with her. She is begging for a second dose of Dilaudid. I have discussed with her that that is not in accordance with her care plan. She isconcerned that she is run out of her home oral Dilaudid. I do have concerns this is the likely etiology of her symptoms. I offered to use calcium to cover up the teeth but patient declined. Stated now it is more of her jaw. Once again I do not see any evidence of trauma. She is moving her jaw without difficulty. Given her history of repetitive imaging including imaging last week I feel that the benefit of imaging does not exceed the risk. I do not think this would be beneficial to her. She continues asked for additional pain medication. She is calling the clinic to ask for additional pain medications as well. Patient will be signed out to my partner pending blood transfusion. Once transfusion is complete she should follow-up in the clinic. Disposition Patient signed out to Dr Ny pending transfusion Diagnosis ICD-10-CM 1. Syncope, unspecified syncope type R55 2. Anemia, unspecified type D64.9 3. Pain, dental K08.89 Discharge Medications New Prescriptions No medications on file Scribe Disclosure: I, Coni Elaine, am serving as a scribe at 1:26 PM on 06/19/2024 to document services personallyperformed by Malia Barajas MD based on my observations and the provider's statements to me. Malia Barajas MD 06/19/24 1826 * Casper Ny MD - 06/19/2024 12:27 PM CDT 7:47 PM - Informed by staff development nurse that patient went to the bathroom unattended and reportedly had an unwitnessed fall. Patient awaiting blood transfusion, for chronic anemia. Care plan reviewed. I assessed the patient at the bedside. Cervical spine cleared clinically. No neurologic deficits. Patient reports new low back pain since the fall. Suspect mild contusion. Will obtain lumbar radiographs. Patient states that she does not know what happened but her face went cold and then the next thing she knew she was on the floor. Patient is requesting 4mg Dilaudid stating that she called her primary care clinic while she was here and they told her to show me a screen on her phone which shows 4mg oral dilaudid tablets. I reviewed Epic phone notes from today and Dr Mcclelland at 4:23pm wrote No pain meds. No neurologic deficits. CMS intact bilateral lower extremities. ECG reviewed. Sinus rhythm without acute ischemia or dysrhythmia. 9:52 PM - Called to room as patient requesting to have IV removed and to leave AMA. Blood transfusion just started. Will give a single additional dose of IV benadryl to help treat symptoms of nausea to help allow patient to finish the blood transfusion before leaving. Patient requesting IV valium. Per care plan IV benzodiazepines are contraindicated in this patient. 11:48 PM - I rechecked patient. She appears to be having a pseudoseizure with clenching of the lefthand, repeated blinking of the eyes, and stuttering repeated vocalizations. Does not respond to anyinteraction. No generalized tonic clonic activity. HR unchanged, no hypoxia. PEERL. Gaze is avoidant and changes directions during examination. Will treat with 2mg IV ativan. Patient has history of Psychogenic nonepileptic seizure. 12:14 AM - Patient now awake and alert. Talking normally. 12:59 AM - Patient able to walk in the hallway. She is requesting discharge with plan to take an uber/lyft home. I stressed the importance of close PCP follow up. Return precautions were discussed with patient. The patient's questions were answered and the patient was agreeable with discharge. Disposition: Discharged Casper Ny MD 06/20/24 0059 documented in this encounter Plan of Treatment Upcoming Encounters Date Type Department Care Team (Late st Contact Info) Description 02/20/2025 10:20 AM CDT Appointment [facility] [address] [place] [id number] Allyssa Justice MD [facility] [address] [place] [address] [place] [address] 02/27/2025 10:40 AM CDT Virtual Visit [facility] [address], [place] [address] [facility] [place] [phone] Allyssa Justice MD [facility] [address] [place] [address] [place] [id number] Pending Results Name Type Priority Associated Diagnoses Date /Time POC US GUIDANCE NEEDLE PLACEMENT Imaging STAT 06/19/2024 7:56 PM CDT Scheduled Orders Name Type Priority Associated Diagnoses Orde r Schedule POC US GUIDANCE NEEDLE PLACEMENT Imaging STAT One time imaging for 1 Occurrences starting 06/19/2024 until 06/19/2024 documented as of this encounter Procedures Procedure Name Priority Date/Time Associated Diagnosis Comments TRANSFUSE RED BLOOD CELLS (UNIT) STAT 06/19/2024 9:32 PM CDT XR LUMBAR SPINE 2/3 VIEWS STAT 06/19/2024 8:49 PM CDT TYPE AND SCREEN, ADULT STAT 4 5:20 PM CDT ABO/RH TYPE AND SCREEN STAT 4 5:20 PM CDT EXTRA TUBE STAT 06/19/2024 3:11 PM CDT EXTRA RED TOP TUBE STAT 06/19/2024 3: 11 PM CDT EXTRA BLUE TOP TUBE STAT 06/19/2024 3 :11 PM CDT PREPARE RED BLOOD CELLS (UNIT) STAT 06/19/2024 2:37 PM CDT CBC WITH PLATELETS AND DIFFERENTIAL STAT 06/19/2024 1:32 PM CDT TROPONIN T, HIGH SENSITIVITY STAT 06/19/2024 1:32 PM CDT CBC WITH PLATELETS & DIFFERENTIAL STAT 06/19/2024 1:32 PM CDT COMPREHENSIVE METABOLIC PANEL STAT 06/19/2024 1:32 PM CDT EKG 12-LEAD, TRACING ONLY STAT 06/19/2024 12:29 PM CDT documented in this encounter Results * Transfuse red blood cells (unit) (06/19/2024 11:56 PM CDT) us Malia Barajas MD BLOOD TRANSFUSION ORDERABL ES Final Result * Transfuse red blood cells (unit), 1 Units (06/19/2024 11:56 PM CDT) Malia Barajas MD BLOOD TRANSFUSION ORDERABL ES Final Result * Lumbar spine XR, 2-3 views (06/19/2024 8:49 PM CDT) Anatomical Region Laterality Modality Spine, T-spine, L-spine, Abdomen/Pelvis Digital Radiography 06/19/2024 8:49 PM CDT Impressions 06/19/2024 8:51 PM CDT IMPRESSION: Normal vertebral body heights. Anatomic alignment. Negative for fracture. Moderate disc degenerative changes at L5-S1. Hypoplastic disc at S1-S2. No pars defects or sagittal subluxation. Moderate facet DJD at L5-S1. Narrative 06/19/2024 8:51 PM CDT EXAM: XR LUMBAR SPINE 2/3 VIEWS LOCATION: [facility] DATE: 06/19/2024 INDICATION: fall, back pain COMPARISON: None. Procedure Note Arsalan Obrien MD - 06/19/2024 EXAM: XR LUMBAR SPINE 2/3 VIEWS LOCATION: [facility] DATE: 06/19/2024 INDICATION: fall, back pain COMPARISON: None. IMPRESSION: Normal vertebral body heights. Anatomic alignment. Negativefor fracture. Moderate disc degenerative changes at L5-S1. Hypoplasticdisc at S1-S2. No pars defects or sagittal subluxation. Moderate facet DJDat L5-S1. us Casper Ny MD IMG DIAGNOSTIC IMAGING ORDERAB LES Final Result * Adult Type and Screen (06/19/2024 5:20 PM CDT) ABO/RH(D) O POS 06/19/2024 2:38 PM CDT BLOOD BANK Antibody Screen Negative Negative 06/19/2024 2:38 PM CDT BLOOD BANK SPECIMEN EXPIRATION DATE [id number] 06/19/2024 2:38 PM CDT BLOOD BANK Blood STRUCTURE OF RIGHT UPPER LIMB / Unknown Venipuncture / Unknown 06/19/2024 5:20 PM CDT 06/19/2024 5:38 PM CDT Result [facility] Malia Barajas MD LAB - BLOOD BANK TEST ORDE R Final Result BLOOD BANK [address] [place] [address], [facility] * Extra Red Top Tube (06/19/2024 3:11 PM CDT) Hold Specimen JIC 06/19/2024 3:18 PM CDT LABORATORY Blood STRUCTURE OF RIGHT UPPER LIMB / Unknown Venipuncture / Unknown 06/19/2024 3:11 PM CDT 06/19/2024 3:17 PM CDT Malia Barajas MD LAB - BLOOD ORDERABLES Fin al Result LABORATORY [facility] [address] 1st floor, [address] [place] [address], [facility] [phone] * Extra Blue Top Tube (06/19/2024 3:11 PM CDT) Hold Specimen JIC 06/19/2024 3:18 PM CDT LABORATORY Blood STRUCTURE OF RIGHT UPPER LIMB / Unknown Venipuncture / Unknown 06/19/2024 3:11 PM CDT 06/19/2024 3:17 PM CDT us Malia Barajas MD LAB - BLOOD ORDERABLES Fin al Result LABORATORY [facility] [address] 1[address] floor, [address] [place] [address], [facility] [phone] * Prepare red blood cells (unit) (06/19/2024 2:37 PM CDT) [facility] Blood Component Type Red Blood Cells BLOOD BANK Product Code [id number] BLOO D BANK Unit Status Transfused BLOO D BANK Unit Number [id number] B LOOD BANK CROSSMATCH Compatible BLOOD BANK CODING SYSTEM [id number] BLO OD BANK ISSUE DATE AND TIME [id number] BLOOD BANK UNIT ABO/RH O+ BLOOD BANK UNIT TYPE ISBT 5100 BL OOD BANK 06/19/2024 2:37 PM CDT us Malia Barajas MD BLOOD BANK PRODUCT ORDERAB LES Final Result BLOOD BANK [address] [place] [address], [facility] * (ABNORMAL) CBC with platelets and differential (06/19/2024 1:32 PM CDT) [facility] WBC Count 7.4 4.0 - 11.0 10e3/uL 06/19/2024 1:46 PM CDT LABORATORY RBC Count 3.19(L) 3.80 - 5.20 10e6/uL 06/19/2024 1:46 PM CDT LABORATORY Hemoglobin 7.0(L) 11.7 - 15.7 g/dL 06/19/2024 1:46 PM CDT LABORATORY Hematocrit 23.9(L) 35.0 - 47.0 % 06/19/2024 1:46 PM CDT LABORATORY MCV 75(L) 78 - 100 fL 06/19/2024 1:46 PM CDT LABORATORY MCH 21.9(L) 26.5 - 33.0 pg 06/19/2024 1:46 PM CDT LABORATORY MCHC 29.3(L) 31.5 - 36.5 g/dL 06/19/2024 1:46 PM CDT LABORATORY RDW 18.0(H) 10.0 - 15.0 % 06/19/2024 1:46 PM CDT LABORATORY Platelet Count 539(H) 150 - 450 10e3/uL 06/19/2024 1:46 PM CDT LABORATORY % Neutrophils 50 % 06/19/2024 1:46 PM CDT LABORATORY % Lymphocytes 40 % 06/19/2024 1:46 PM CDT LABORATORY % Monocytes 8 % 06/19/2024 1:46 PM CDT LABORATORY % Eosinophils 1 % 06/19/2024 1:46 PM CDT LABORATORY % Basophils 0 % 06/19/2024 1:46 PM CDT LABORATORY % Immature Granulocytes 0 % 06/19/2024 1:46 PM CDT LABORATORY NRBCs per 100 WBC 0 <1 /100 024 1:46 PM CDT LABORATORY Absolute Neutrophils 3.7 1.6 - 8.3 10e3/uL 06/19/2024 1:46 PM CDT LABORATORY Absolute Lymphocytes 3.0 0.8 - 5.3 10e3/uL 06/19/2024 1:46 PM CDT LABORATORY Absolute Monocytes 0.6 0.0 - 1.3 10e3/uL 06/19/2024 1:46 PM CDT LABORATORY Absolute Eosinophils 0.1 0.0 - 0.7 10e3/uL 06/19/2024 1:46 PM CDT LABORATORY Absolute Basophils 0.0 0.0 - 0.2 10e3/uL 06/19/2024 1:46 PM CDT LABORATORY Absolute Immature Granulocytes 0.0 <=0.4 10e3/uL 06/19/2024 1:46 PM CDT LABORATORY Absolute NRBCs 0.0 10e3/uL 06/19/2024 1:46 PM CDT LABORATORY Blood BLOOD SPECIMEN / Unknown Venipuncture / Unknown 06/19/2024 1:32 PM CDT 06/19/2024 1:43 PM CDT Malia Barajas MD LAB - BLOOD ORDERABLES Fin al Result LABORATORY [facility] [address] floor, [address] [place] [address], [facility] [phone] * Troponin T, High Sensitivity (06/19/2024 1:32 PM CDT) [facility] Troponin T, High Sensitivity 6 <=14 ng/L 06/19/2024 2:22 PM CDT LABORATORY Comment: Either a High [...] BLOOD SPECIMEN / Unknown Venipuncture / Unknown 06/19/2024 1:32 PM CDT 06/19/2024 1:43 PM CDT Malia Barajas MD LAB - BLOOD ORDERABLES Fin al Result LABORATORY [facility] [address], [address] [place] [address], [facility] [phone] * (ABNORMAL) Comprehensive metabolic panel (06/19/2024 1:32 PM CDT) Sodium 136 135 - 145 mmol/L 06/19/2024 2:22 PM CDT LABORATORY Potassium 4.9 3.4 - 5.3 mmol/L 06/19/2024 2:22 PM CDT LABORATORY Carbon Dioxide (CO2) 24 22 - 29 mmol/L 06/19/2024 2:22 PM CDT LABORATORY Anion Gap 8 7 - 15 mmol/L 06/19/2024 2:22 PM CDT LABORATORY Urea Nitrogen 22.2(H) 6.0 - 20.0 mg/dL 06/19/2024 2:22 PM CDT LABORATORY Creatinine 0.65 0.51 - 0.95 mg/dL 06/19/2024 2:22 PM CDT LABORATORY GFR Estimate >90 >60 mL/min/1.7 3m2 06/19/2024 2:22 PM CDT LABORATORY Comment:eGFR calculated usin 2020 CKD-EPI equation. Calcium 8.7(L) 8.8 - 10.4 mg/dL 06/19/2024 2:22 PM T LABORATORY Comment:Reference intervals for this test were updated on 06/13/2024 to reflect our healthy population more accurately. There may be differences in the flagging of prior results with similar values performed with this method. Those prior results can be interpreted in the context of the updated reference intervals. Chloride 104 98 - 107 mmol/L 06/19/2024 2:22 PM CDT LABORATORY Glucose 100(H) 70 - 99 mg/dL 06/19/2024 2:22 PM CDT LABORATORY Alkaline Phosphatase 164(H) 40 - 150 U/L 06/19/2024 2:22 PM CDT LABORATORY AST 22 0 - 45 U/L 06/19/2024 2:22 PM CDT LABORATORY ALT 33 0 - 50 U/L 06/19/2024 2:22 PM CDT LABORATORY Protein Total 7.7 6.4 - 8.3 g/dL 06/19/2024 2:22 PM CDT LABORATORY Albumin 4.1 3.5 - 5.2 g/dL 06/19/2024 2:22 PM CDT LABORATORY Bilirubin Total <0.2 <=1.2 mg/dL 06/19/2024 2:22 PM CDT LABORATORY Blood BLOOD SPECIMEN / Unknown Venipuncture / Unknown 06/19/2024 1:32 PM CDT 06/19/2024 1:43 PM CDT Malia Barajas MD LAB - BLOOD ORDERABLES Fin al Result LABORATORY [facility] [address] 1[address] floor, [address] [place] [address], [facility] [phone] * EKG 12 lead (06/19/2024 12:29 PM CDT) Systolic Blood Pressure mmHg RADIOLOGY RESULTS Diastolic Blood Pressure mmHg RADIOLOGY RESULTS Ventricular Rate 100 BPM RAD IOLOGY RESULTS Atrial Rate 100 BPM RADIOLOG Y RESULTS MA Interval 152 ms RADIOLOG Y RESULTS QRS Duration 62 ms RADIOLO GY RESULTS QT 334 ms RADIOLOGY RESULTS QTc 430 ms RADIOLOGY RESULTS P Council 47 degrees RADIOLOGY RESULTS R AXIS 10 degrees RADIOLOGY RESULTS T Council 30 degrees RADIOLOGY RESULTS Interpretation ECG Sinus rhythm Low voltage QRS Cannot rule out Anterior infarct , age undetermined Abnormal ECG When compared with ECG of 26-MAY-2024 14:51, No significant change was found Confirmed by GENERATED REPORT, COMPUTER ([id number]), news editor Carlos Bruner ([id number]) on 06/19/2024 8:12:49 PM RADIOLOGY RESULTS 06/19/2024 12:2 9 PM CDT 06/19/2024 8:12 PM CDT Malia Barajas MD ECG ORDERABLES Edited Res ult - Final RADIOLOGY RESULTS documented in this encounter Visit Diagnoses Diagnosis Syncope, unspecified syncope type Anemia, unspecified type Pain, dental Unspecified disorder of the teeth and supporting structures documented in this encounter Administered Medications Inactive Administered Medications - up to 3 most recent administrations Medication Order MAR Action Action Date Dose Rate Site diphenhydrAMINE (BENADRYL) 25 mg in sodium chloride 0.9 % 55.5 mL intermittent infusion 25 mg, Intravenous, Administer over 10 Minutes, at 333 mL/hr, ONCE, On Wed06/19/24 at 1440, For 1 dose $New Bag 06/19/2024 3:42 PM CDT 25 mg 333 mL/hr diphenhydrAMINE (BENADRYL) injection 25 mg 25 mg, Intravenous, ONCE, On Wed06/19/24 at 2155, For 1 dose $Given 06/19/2024 9:56 PM CDT 25 mg HYDROmorphone (DILAUDID) tablet 2 mg 2 mg, Oral, ONCE, On Wed06/19/24 at 1340, For 1 dose $Given 06/19/2024 2:11 PM CDT 2 mg Lidocaine (LIDOCARE) 4 % Patch 1 patch 1 patch, Transdermal, Administer over 12 Hours, ONCE, On Wed06/19/24 at 1830, For 1 dose, Apply patch(s) to right side of face (To prevent lidocaine toxicity, patient should be patch free for 12 hrs daily. Patches may be cut to smaller size prior to removing release liner.) Reminder: Remove previous patch before applying new patch. NEVER APPLY HEAT OVER PATCH which increases absorption and may lead to local anesthetic toxicity. Do not apply over area where liposomal bupivacaine was injected for 96 hours post injection. $Patch/Med Applied 06/19/2024 7:49 PM CDT 1 patch Other (see comments) LORazepam (ATIVAN) injection 2 mg 2 mg, Intravenous, ONCE, On Wed06/19/24 at 2350, For 1 dose, IV Route: Dilute with equal volume NS prior to use. This drug may cause significant respiratory depression. Monitor respiratory status and vital signs carefully for 1 hour after each dose. $Given 06/19/2024 11:56 PM CDT 2 mg sodium chloride 0.9% BOLUS 1,000 mL Intravenous, 1,000 mL, ONCE, at 1,000 mL/hr, Administer over 1 Hours, On Wed06/19/24 at 1340, For 1 dose $New Bag 06/19/2024 2:10 PM CDT 1,000 mLs 1000 mL/hr documented in this encounter Active and Recently Administered Medications Times are shown in CDT. Scheduled Medication Order 06/18/2024 06/19/2024 06/20/2024 diphenhydrAMINE (BENADRYL) 25 mg in sodium chloride 0.9 % 55.5 mL intermittent infusion (COMPLETED) 25 mg, Intravenous, Administer over 10 Minutes, at 333 mL/hr, ONCE, On Wed06/19/24 at 1440, For 1 dose 1542 ($New Bag - Provider: Milvia Chávez RN)1552 (Stopped - Provider: Dayron Rollins RN) diphenhydrAMINE (BENADRYL) injection 25 mg (COMPLETED) 25 mg, Intravenous, ONCE, On Wed06/19/24 at 2155, For 1 dose 2156 ($Given - Provider: Dayron Rollins RN) HYDROmorphone (DILAUDID) tablet 2 mg (COMPLETED) 2 mg, Oral, ONCE, On Wed06/19/24 at 1340, For 1 dose 1411 ($Given - Provider: Miguel Almeida RN) Lidocaine (LIDOCARE) 4 % Patch 1 patch 1 patch, Transdermal, Administer over 12 Hours, ONCE, On Wed06/19/24 at 1830, For 1 dose, Apply patch(s) to right side of face (To prevent lidocaine toxicity, patient should be patch free for 12 hrs daily. Patches may be cut to smaller size prior to removing release liner.) Reminder: Remove previous patch before applying new patch. NEVER APPLY HEAT OVER PATCH which increases absorption and may lead to local anesthetic toxicity. Do not apply over area where liposomal bupivacaine was injected for 96 hours post injection. 194 ($Patch/Med Applied - Provider: Dayron Rollins RN - Comment: Right cheek) 012 (Due: Patch/Med Removed - Provider: Orders Generic Provider - Comment: Time automatically adjusted from order being discontinued) LORazepam (ATIVAN) injection 2 mg (COMPLETED) 2 mg, Intravenous, ONCE, On Wed06/19/24 at 2350, For 1 dose, IV Route: Dilute with equal volume NS prior to use. This drug may cause significant respiratory depression. Monitor respiratory status and vital signs carefully for 1 hour after each dose. 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 Assessment Noted Time PHQ-9 Depression Total Score: 4 02/21/20 1:54 PM CDT documented as of this encounter Care Teams Line Crewman Relationship Specialty Start [place] [address] [address] [address] PCP - General Family Medicine 04/22/23 [place] [address] [address] [address] Assigned Pain Medication Provider 12/07/22 [place] [address] [address] [address] Assigned PCP 01/23/23 [place] [address] [address] [address] Assigned Musculoskeletal Provider 01/23/23 09/19/24 Gregorio Dalton PA-C [address] [address] Assigned Surgical Provider 05/22/23 07/20/24 Kingsley Garcia MD [address] [address] Assigned Heart and Vascular Provider 08/07/23 [place] [address] [address] [address] Family Medicine 09/10/23 Master Shea PA-C [address] [place] [address] Physician Cafeteria Assistant Gastroenterology 09/10/23 Allyssa Justice MD [facility] [address] 570475 Hematology & Oncology 12/10/23 Genaro Christian MD [address] [place] [address] 292385 Cardiovascular Disease 12/22/23 Master Shea PA-C [address] [place] [address] Assigned Gastroenterology Provider 12/23/23 Sienna Guillermo DO [address] [place] [address] Physician Cardiovascular Disease 01/18/24 Allyssa Justice MD [facility] [address] 433315 Assigned Cancer Care Provider 03/21/24 documented as of this encounter
--- OUTSIDE RECORDS SUMMARY | 2024-09-21 22:44 | XMS_ITS | Encounter Summary ---
Author Organization [facility] Address [address] [place] [address] Care Team Providers Care Iv Rn Name Role Phone Chantelle Virgen MD Unavailable [phone] Chantelle Virgen MD Unavailable [phone] Qamar Jackson MD Unavailable Chantelle Virgen MD Primary Care Provider + Gregorio Dalton PA-C Unavailable [phone] Kingsley Garcia MD Unavailable + [phone] Chantelle Virgen MD Unavailable [phone] Master Shea PA-C Unavailable Allyssa Justice MD Unavailable [phone] Genaro Christian MD Unavailable Master Shea PA-C Unavailable Sienna Guillermo DO Unavailable [phone] Allyssa Justice MD Unavailable [phone] Reason for Visit * Reason Onset Date Comments Back Pain Entered automati radha based [facility] Back Pain 05/12/2024 Encounter Details Date Type Department Care Team (Late st Contact Info) Description 05/12/2024 10:30 AM CDT E-Visit [facility] [address] [place] [address] [place] [address] [address] [place] [address] Back Pain (Entered automatically based on ... 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 Gender Identity Female 05/26/2021 10:37 AM CDT Sexual Orientation Straight 05/26/2021 10 :37 AM CDT Occupation Industry Job Start Date Job End Date unemployed Not on file Not on file Not on file Not on file Not on file Not on file Not on file documented as of this encounter Miscellaneous Notes * Telephone Encounter - Chantelle Virgen MD - 05/12/2024 1:49 PM CDT Provider E-Visit time total (minutes): 20 * Addendum Note - Chantelle Virgen MD - 05/12/2024 10:30 AM CDTAddended by: CHANTELLE VIRGEN on: 05/15/2024 01:52 PM Modules accepted: Orders documented in this encounter Plan of Treatment Upcoming Encounters Date Type Department Care Team (Late st Contact Info) Description 02/20/2025 10:[address] [facility] [address] [place] [phone] Allyssa Justice MD [facility] [address] [place] [place] [address] 02/27/2025 10:40 AM CDT Virtual Visit [facility] [address] [facility] [place] [address] Allyssa Justice MD [facility] [address] [address] documented as of this encounter Visit Diagnoses Diagnosis Osteomyelitis, unspecified site, unspecified type (H)- Primary 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 Assessment Noted Time PHQ-9 Depression Total Score: 4 02/21/20 24 1:54 PM CDT documented as of this encounter Care Teams Iv Rn Relationship Specialty Start [place] [address] [address] [address] PCP - General Family Medicine 04/22/23 [place] [address] [address] [address] Assigned Pain Medication Provider 12/07/22 [place] [address] [address] [address] Assigned PCP 01/23/23 [place] [address] [place] [address] Assigned Musculoskeletal Provider 01/23/23 09/19/24 Gregorio Dalton PA-C [address] [address] Assigned Surgical Provider 05/22/23 07/20/24 Kingsley Garcia MD [address] [place] [address] Assigned Heart and Vascular Provider 08/07/23 [place] [address] [address] [address] Family Medicine 09/10/23 Master Shea PA-C [address] [address] Physician Rn Outpatient Surgery Gastroenterology 09/10/23 Allyssa Justice MD [facility] [address] [place] [address] Hematology & Oncology 12/10/23 Genaro Christian MD [address] [place] [address] Cardiovascular Disease 12/22/23 Master Shea PA-C [address] [place] [address] Assigned Gastroenterology Provider 12/23/23 Sienna Guillermo DO [address] [place] [address] Physician Cardiovascular Disease 01/18/24 Allyssa Justice MD [facility] [address] [place] [address] Assigned Cancer Care Provider 03/21/24 documented as of this encounter
--- OUTSIDE RECORDS SUMMARY | 2024-09-21 22:44 | XMS_ITS | Encounter Summary ---
Author Organization [place] Address [address] [place] [address] Care Team Providers Care Android Software Engineer Name Role Phone Segundo Mcclelland MD Unavailable [phone] Segundo Mcclelland MD Unavailable [phone] Qamar Jackson MD Unavailable Segundo Mcclelland MD Primary Care Provider + Gregorio Dalton PA-C Unavailable [phone] Kingsley Garcia MD Unavailable + [phone] Segundo Mcclelland MD Unavailable [phone] Master Shea PA-C Unavailable Allsysa Justice MD Unavailable [phone] Genaro Christian MD Unavailable Master Shea PA-C Unavailable Sienna Guillermo DO Unavailable [phone] Allyssa Justice MD Unavailable [phone] Declan Leavitt MD Unavailable Reason for Visit * Reason Onset Date Comments Referral 05/31/2024 Encounter Details Date Type Department Care Team (Late st Contact Info) Description 05/31/2024 Telephone [facility] [address] [place] [address] [place] [address] [address] [address] Referral Social History Tobacco Use Types [...] AM CDT 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 Gender Identity Female 05/26/2021 10:37 AM CDT Sexual Orientation Straight 05/26/2021 10 :37 AM CDT Occupation Industry Job Start Date Job End Date unemployed Not on file Not on file Not on file Not on file Not on file Not on file Not on file documented as of this encounter Miscellaneous Notes * Telephone Encounter - Angelica Holt - 05/31/2024 9:31 AM CDT Patient Quality Outreach Patient is due for the following: Preventative Visit Chronic Opioid Use - Treatment Agreement (CSA) and Urine Drug Screen Next Steps: Schedule a Adult Preventative and med check Type of outreach: Sent [employer] message. Questions for provider review: None Angelica Holt documented in this encounter Plan of Treatment Upcoming Encounters Date Type Department Care Team (Late st Contact Info) Description 02/20/2025 10:20 AM CDT Appointment [facility] [address] [place] [address] Allyssa Justice MD [facility] [address] [place] [address] 02/27/2025 10:40 AM CDT Virtual Visit [facility] [address], [address] 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 Assessment Noted Time PHQ-9 Depression Total Score: 4 02/21/20 24 1:54 PM CDT documented as of this encounter Care Teams Android Software Engineer Relationship Specialty Start [place] [address] [address] [address] PCP - General Family Medicine 04/22/23 [place] [address] [address] [address] Assigned Pain Medication Provider 12/07/22 [place] [address] [address] [address] Assigned PCP 01/23/23 [place] [address] [address] [place] [address] Assigned Musculoskeletal Provider 01/23/23 09/19/24 Gregorio Dalton PA-C [address] [address] Assigned Surgical Provider 05/22/23 07/20/24 Kingsley Garcia MD [address] [place] [address] Assigned Heart and Vascular Provider 08/07/23 [place] [address] [address] [address] Family Medicine 09/10/23 Master Shea PA-C [address] [place] [address] Physician Senior Electrical Engineer Gastroenterology 09/10/23 Allyssa Justice MD [facility] [address] [place] [address] Hematology & Oncology 12/10/23 Genaro Christian MD [address] [place], [place] 26[address] Cardiovascular Disease 12/22/23 Master Shea PA-C [address] [place] [address] Assigned Gastroenterology Provider 12/23/23 Sienna Guillermo DO [address] [place] [address]32[address] Physician Cardiovascular Disease 01/18/24 Allyssa Justice MD [facility] [address] [place] [address] Assigned Cancer Care Provider 03/21/24 Declan Leavitt MD [address] [place] [address] Assigned Surgical Provider 07/21/24 documented as of this encounter
--- OUTSIDE RECORDS SUMMARY | 2024-09-21 22:45 | XMS_ITS | Encounter Summary ---
Author Organization [facility] Address [address] [place] [address] Care Team Providers Care Twisting Operator Name Role Phone Segundo Mcclelland MD Unavailable [phone] Segundo Mcclelland MD Unavailable [phone] Qamar Jackson MD Unavailable Segundo Mcclelland MD Primary Care Provider + Gregorio Dalton PA-C Unavailable [phone] Kingsley Garcia MD Unavailable + [phone] Segundo Mcclelland MD Unavailable [phone] Master Shea PA-C Unavailable Allyssa Justice MD Unavailable [phone] Genaro Christian MD Unavailable + [phone] Master Shea PA-C Unavailable Sienna Guillermo DO Unavailable +[phone] Allyssa Justice MD Unavailable [phone] Declan Leavitt MD Unavailable Ugo Ochoa MD Unavailable Encounter Details Date Type Department Care Team (Late st Contact Info) Description 08/26/2023 MyC Medical Advice [facility] [place] 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 No / Unsure 08/22/2023 1:20 PM CDT documented as of this encounter Plan of Treatment Upcoming Encounters Date Type Department Care Team (Late st Contact Info) Description 02/20/2025 10:20 AM CDT Appointment [facility] Imaging [address] [place] [address] [place] [address] Allyssa Justice MD [facility] [address] [place] [address] 02/27/2025 10:40 AM CDT Virtual Visit [place] [id number], [address] [facility] [place] [phone] Allyssa Justice MD [facility] [address] [place] [address]76[address] documented as of this encounter Visit Diagnoses Not on file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 Rule Out COVID-19 11/10/2023 11/10/2023 11/10/2023 7:17 PM ORCHARD PRUNER Rule Out COVID-19 01/18/2024 01/18/2024 01/18/2024 8:53 PM ORCHARD PRUNER Rule Out COVID-19 01/28/2024 01/28/2024 01/28/2024 10:22 PM ORCHARD PRUNER Rule Out COVID-19 02/17/2024 02/17/2024 02/17/2024 5:07 PM CDT Rule Out COVID-19 04/22/2024 04/22/2024 04/23/2024 12:06 AM CDT Assessment Noted Time PHQ-9 Depression Total Score: 3 05/27/20 23 5:00 PM CDT documented as of this encounter Care Teams Twisting Operator Relationship Specialty Start [place] [address] [address] [address] PCP - General Family Medicine 04/22/23 [place] [address] [address] [address] Assigned Pain Medication Provider 12/07/22 [place] [address] [address] [address] Assigned PCP 01/23/23 [place] [address] [place] [address] Assigned Musculoskeletal Provider 01/23/23 09/19/24 Gregorio Dalton PA-C [address] [address] Assigned Surgical Provider 05/22/23 07/20/24 Kingsley Garcia MD [address] [place] [address] Assigned Heart and Vascular Provider 08/07/23 [place] [address] [address] [address] Family Medicine 09/10/23 Master Shea PA-C [address] [place] [address] Physician Legal Receptionist Gastroenterology 09/10/23 Allyssa Justice MD [facility] [address] [place] [address] Hematology & Oncology 12/10/23 Genaro Christian MD [address] [place] [address] Cardiovascular Disease 12/22/23 Master Shea PA-C [address] [place] [address] Assigned Gastroenterology Provider 12/23/23 Sienna Guillermo DO [address] [place] [address] Physician Cardiovascular Disease 01/18/24 Allyssa Justice MD [facility] [address] [place] [address] Assigned Cancer Care Provider 03/21/24 Declan Leavitt MD [address] [place] [address] Assigned Surgical Provider 07/21/24 Ugo Ochoa MD [address] [place] [address] 372325 Assigned Neuroscience Provider 09/20/24 documented as of this encounter
--- OUTSIDE RECORDS SUMMARY | 2024-09-21 22:45 | XMS_ITS | Encounter Summary ---
Author Organization [facility] Address [address] [place] [address] Care Team Providers Care Proprietary Trader Name Role Phone Segundo Mcclelland MD Unavailable [phone] Segundo Mcclelland MD Unavailable [phone] Qamar Jackson MD Unavailable Segundo Mcclelland MD Primary Care Provider + Gregorio Dalton PA-C Unavailable +[phone] Kignsley Garcia MD Unavailable + [phone] Segundo Mcclelland MD Unavailable +[phone] Master Shea PA-C Unavailable Allyssa Justice MD Unavailable [phone] Genaro Christian MD Unavailable [phone] Master Shea PA-C Unavailable Sienna Guillermo DO Unavailable +[phone] Allyssa Justice MD Unavailable [phone] Declan Leavitt MD Unavailable Ugo Ochoa MD Unavailable Reason for Visit * Reason Onset Date Comments Referral 09/24/2023 GI Nutrition Con cerns Encounter Details Date Type Department Care Team (Late st Contact Info) Description 09/24/2023 Telephone [facility] [address] [place] [address] [place] [address] [place], [place] [address] Referral (GI Nutrition Concerns ) Social History [...] AM CDT Legal Sex Female 3:29 AM ASSOCIATE PROFESSOR OF ART HISTORY Gender Identity Female 05/26/2021 10:37 AM CDT Sexual Orientation Straight 05/26/2021 10 :37 AM CDT Occupation Industry Job Start Date Job End Date unemployed Not on file Not on file Not on file Not on file Not on file Not on file Not on file COVID-19 Exposure Response Date Recorded In the last 10 days, have monik wallace been in contact with someone who was confirmed or suspected to have Coronavirus/COVID-19? No / Unsure 09/04/2023 5:40 PM CDT documented as of this encounter Miscellaneous Notes * Telephone Encounter - Izzy Bates - 09/30/2023 8:11 AM CDT 09/30 2nd attempt. Called and left voicemail, provided phone number [phone] to schedule new nutrition visit type with nay Muniz. Izzy barfield Procedure Dinking Machine Operator Orthopedics, Podiatry, Sports Medicine, Ent ,Eye , Audiology, Adult Endocrine & Diabetes, Nutrition & Medication Therapy Management Specialties [facility] * Telephone Encounter - Izzy Bates - 09/24/2023 1:29 PM CDT 09/24 Called and left voicemail, provided phone number [phone] to schedule new nutrition visittype with nay Muniz. Izzy barfield Procedure Dinking Machine Operator Orthopedics, Podiatry, Sports Medicine, Ent ,Eye , Audiology, Adult Endocrine & Diabetes, Nutrition & Medication Therapy Management Specialties [facility] * Telephone Encounter - Hannah Fernandez - 09/24/2023 1:22 PM CDT [facility] Call Center Phone Message May a [...] Description 02/20/2025 10:20 AM CDT Appointment [facility] [address] [place] [phone] Allyssa Justice MD [facility] [address] [place] [address] 02/27/2025 10:40 AM CDT Virtual Visit [facility] [address] [facility] [place] [phone] Allyssa Justice MD [facility] [address] [place] 8[address] documented as of this encounter Visit Diagnoses Not on file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 Rule Out COVID-19 11/10/2023 11/10/2023 11/10/2023 7:17 PM ASSOCIATE PROFESSOR OF ART HISTORY Rule Out COVID-19 01/18/2024 01/18/2024 01/18/2024 8:53 PM ASSOCIATE PROFESSOR OF ART HISTORY Rule Out COVID-19 01/28/2024 01/28/2024 01/28/2024 10:22 PM ASSOCIATE PROFESSOR OF ART HISTORY Rule Out COVID-19 02/17/2024 02/17/2024 02/17/2024 5:07 PM CDT Rule Out COVID-19 04/22/2024 04/22/2024 04/23/2024 12:06 AM CDT Assessment Noted Time PHQ-9 Depression Total Score: 3 05/27/20 23 5:00 PM CDT documented as of this encounter Care Teams Proprietary Trader Relationship Specialty Start [place] [address] [place] [address] PCP - General Family Medicine 04/22/23 [place] [address] [place] [address] Assigned Pain Medication Provider 12/07/22 [place] [address] [place] [address] Assigned PCP 01/23/23 [place] [address] [place] [address] Assigned Musculoskeletal Provider 01/23/23 09/19/24 Gregorio Dalton PA-C [address] [place] [address] Assigned Surgical Provider 05/22/23 07/20/24 Kingsley Garcia MD [address] [place] [address] Assigned Heart and Vascular Provider 08/07/23 [place] [address] [place] [address] Family Medicine 09/10/23 Master Shea PA-C [address] [place] [address] Physician Solar Thermal Technician Gastroenterology 09/10/23 Allyssa Justice MD [facility] [address] [place] [address] Hematology & Oncology 12/10/23 Genaro Christian MD [address] [place] [address] Cardiovascular Disease 12/22/23 Master Shea PA-C [address] [facility] [address] Assigned Gastroenterology Provider 12/23/23 Sienna Guillermo DO [address] [place] [address] Physician Cardiovascular Disease 01/18/24 Allyssa Justice MD [facility] [address] [place] [address] Assigned Cancer Care Provider 03/21/24 Declan Leavitt MD [address] [place] [address] Assigned Surgical Provider 07/21/24 Ugo Ochoa MD [address] [place] [address] 968115 Assigned Neuroscience Provider 09/20/24 documented as of this encounter
--- OUTSIDE RECORDS SUMMARY | 2024-09-21 22:45 | XMS_ITS | Encounter Summary ---
Author Organization [facility] Address [address] [place] [address] Care Team Providers Care Panel Machine Operator Name Role Phone Segundo Mcclelland MD Unavailable [phone] Segundo Mcclelland MD Unavailable [phone] Qamar Jackson MD Unavailable Segundo Mcclelland MD Primary Care Provider + Gregorio Dalton PA-C Unavailable +[phone] Kingsley Garcia MD Unavailable + [phone] Segundo Mcclelland MD Unavailable [phone] Master Shea PA-C Unavailable Allyssa Justice MD Unavailable [phone] Genaro Christian MD Unavailable + [phone] Master Shea PA-C Unavailable Sienna Guillermo DO Unavailable +[phone] Allyssa Justice MD Unavailable [phone] Declan Leavitt MD Unavailable Ugo Ochoa MD Unavailable Encounter Details Date Type Department Care Team (Late st Contact Info) Description 02/01/2024 MyC Medical Advice 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 Rule Out COVID-19 02/17/2024 02/17/2024 02/17/2024 5:07 PM CDT Rule Out COVID-19 04/22/2024 04/22/2024 04/23/2024 12:06 AM CDT Assessment Noted Time PHQ-9 Depression Total Score: 3 05/27/20 23 5:00 PM CDT documented as of this encounter Care Teams Panel Machine Operator Relationship Specialty Start [place] [address] [address] [address] PCP - General Family Medicine 04/22/23 [place] [address] [address] [address] Assigned Pain Medication Provider 12/07/22 [place] [address] [address] [address] Assigned PCP 01/23/23 [place] [address] [place] [address] Assigned Musculoskeletal Provider 01/23/23 09/19/24 Gregorio Dalton PA-C [address] [address] Assigned Surgical Provider 05/22/23 07/20/24 Kingsley Garcia MD [address] [place] [address] Assigned Heart and Vascular Provider 08/07/23 [place] [address] [place] [address] Family Medicine 09/10/23 Master Shea PA-C [address] [place] [address] Physician Filling Layer Up Gastroenterology 09/10/23 Allyssa Justice MD [facility] [address] [address] Hematology & Oncology 12/10/23 Genaro Christian MD 6 [place] [address] Cardiovascular Disease 12/22/23 Master Shea PA-C [address] [place] [address] Assigned Gastroenterology Provider 12/23/23 Sienna Guillermo DO [address] [place] [address] Physician Cardiovascular Disease 01/18/24 Allyssa Justice MD [facility] [address] [place] [address] Assigned Cancer Care Provider 03/21/24 Declan Leavitt MD [address] [place] [address] Assigned Surgical Provider 07/21/24 Ugo Ochoa MD [address] [place] [address] Assigned Neuroscience Provider 09/20/24 documented as of this encounter
--- OUTSIDE RECORDS SUMMARY | 2024-09-21 22:45 | XMS_ITS | Encounter Summary ---
Author Organization [facility] Address [address] [place] [address] Care Team Providers Care Curriculum Development Specialist Name Role Phone Segundo Mcclelland MD Unavailable [phone] Segundo Mcclelland MD Unavailable [phone] Qamar Jackson MD Unavailable Segundo Mcclelland MD Primary Care Provider + Gregorio Dalton PA-C Unavailable [phone] Kingsley Garcia MD Unavailable + [phone] Segundo Mcclelland MD Unavailable [phone] Master Shea PA-C Unavailable Allyssa Justice MD Unavailable [phone] Genaro Christian MD Unavailable + [phone] Master Shea PA-C Unavailable Sienna Guillermo DO Unavailable +[phone] Allyssa Justice MD Unavailable [phone] Declan Leavitt MD Unavailable Ugo Ochoa MD Unavailable Encounter Details Date Type Department Care Team (Late st Contact Info) Description 01/04/2024 Telephone [facility] [address] [place] [address] [place] [address] [place] [address] Social History Tobacco Use Types Packs/Day [...] an abandoned building, in an overnight senior care, or couch-surfing.) Yes 08/26/2023 Are you worried [...] AM CDT Legal Sex Female 3:29 AM FINANCIAL INTERN Gender Identity Female 05/26/2021 10:37 AM CDT [...] to offer Same Day. Kait Winters Lead Spiral Tube Winder Helper NCIAL INTERN * Telephone Encounter - Segundo Mcclelland MD - 01/04/2024 2:51 PM FINANCIAL INTERN May offer the same day Segundo Mcclelland MD NCIAL INTERN * Telephone Encounter - Kait Rao - 01/04/2024 9:12 AM CST Routing to provider to see if Same Day can be used on 01/06. Kait Winters Lead Spiral Tube Winder Helper NCIAL INTERN * Telephone Encounter - Gardenia Thomas - 01/04/2024 8:57 AM CST Patient calls, requesting sooner appointment for ER follow up. She is currently scheduled for a VV on 01/10 but states she is still experiencing pain and fevers and would like to be seen sooner via virtual visit. Please advise if she can be seen sooner NCIAL INTERN documented in this encounter Plan of Treatment Upcoming Encounters Date Type Department Care Team (Late st Contact Info) Description 02/20/2025 10:20 AM CDT Appointment [facility] Imaging [address] [facility] [address] [place] [address] Allyssa Justice MD [facility] [address] [place] [address] 02/27/2025 10:40 AM CDT Virtual Visit [facility] [address] [place] [address] [facility] [place] [phone] Allyssa Justice MD [facility] [address] [place] [address] documented as of this encounter Visit Diagnoses Not on file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 Rule Out COVID-19 01/18/2024 01/18/2024 01/18/2024 8:53 PM FINANCIAL INTERN Rule Out COVID-19 01/28/2024 01/28/2024 01/28/2024 10:22 PM FINANCIAL INTERN Rule Out COVID-19 02/17/2024 02/17/2024 02/17/2024 5:07 PM CDT Rule Out COVID-19 04/22/2024 04/22/2024 04/23/2024 12:06 AM CDT Assessment Noted Time PHQ-9 Depression Total Score: 3 05/27/20 23 5:00 PM CDT documented as of this encounter Care Teams Curriculum Development Specialist Relationship Specialty Start [place] [address] [address] [address] PCP - General Family Medicine 04/22/23 [place] [address] [address] [address] Assigned Pain Medication Provider 12/07/22 [place] [address] [address] [address] Assigned PCP 01/23/23 [place] [address] [place] [address] Assigned Musculoskeletal Provider 01/23/23 09/19/24 Gregorio Dalton PA-C [address] [place] [address] Assigned Surgical Provider 05/22/23 07/20/24 Kingsley Garcia MD [address] [place] [address] Assigned Heart and Vascular Provider 08/07/23 [place] [address] [address] [address] Family Medicine 09/10/23 Master Shea PA-C [address] [place] [address] Physician Optical Glass Silverer Gastroenterology 09/10/23 Allyssa Justice MD [facility] [address] [place] [address] Hematology & Oncology 12/10/23 Genaro Christian MD [address] [place], [place] 302335 Cardiovascular Disease 12/22/23 Master Shea PA-C [address] [place] [address] Assigned Gastroenterology Provider 12/23/23 Sienna Guillermo DO [address] [place] [address]36[address] Physician Cardiovascular Disease 01/18/24 Allyssa Justice MD [facility] [address] [place] [address]1905 Assigned Cancer Care Provider 03/21/24 Declan Leavitt MD [address] [place] 844985 Assigned Surgical Provider 07/21/24 Ugo Ochoa MD [address] [place], [place] 320035 Assigned Neuroscience Provider 09/20/24 documented as of this encounter
--- OUTSIDE RECORDS SUMMARY | 2024-09-21 22:45 | XMS_ITS | Encounter Summary ---
Author Organization [facility] Address [address] [place] [address] Care Team Providers Care Evaluation Assistant Name Role Phone Segundo Mcclelland MD Unavailable [phone] Segundo Mcclelland MD Unavailable [phone] Qamar Jackson MD Unavailable Segundo Mcclelland MD Primary Care Provider + Gregorio Dalton PA-C Unavailable +[phone] Kingsley Garcia MD Unavailable + [phone] Segundo Mcclelland MD Unavailable [phone] Master Shea PA-C Unavailable Allyssa Justice MD Unavailable [phone] Genaro Christian MD Unavailable + [phone] Master Shea PA-C Unavailable Sienna Guillermo DO Unavailable +[phone] Allyssa Justice MD Unavailable [phone] Declan Leavitt MD Unavailable Ugo Ochoa MD Unavailable Encounter Details Date Type Department Care Team (Late st Contact Info) Description 10/07/2023 MyC Medical Advice [facility] [address] [place] [address] [place] [address] [place] [id number] Social History Tobacco Use Types Packs/Day Years [...] AM CDT Legal Sex Female 3:29 AM DOG SHOW JUDGE Gender Identity Female 05/26/2021 10:37 AM CDT Sexual Orientation Straight 05/26/2021 10 :37 AM CDT Occupation Industry Job Start Date Job End Date unemployed Not on file Not on file Not on file Not on file Not on file Not on file Not on file documented as of this encounter Miscellaneous Notes * Telephone Encounter - Madalyn Queen, RN - 10/07/2023 10:39 AM CST See update on mychart. Madalyn Queen RN SHOW JUDGE documented in this encounter Plan of Treatment Upcoming Encounters Date Type Department Care Team (Late st Contact Info) Description 02/20/2025 10:20 AM CDT Appointment [facility] Imaging [address] [place] [place] [phone] Allyssa Justcie MD [facility] [address] [place] [address] 02/27/2025 10:40 AM CDT Virtual Visit [facility] [address], [address] [facility] Medical [facility] [place] [phone] Allyssa Justice MD [facility] [address] [place] [address] documented as of this encounter Visit Diagnoses Not on file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 Rule Out COVID-19 11/10/2023 11/10/2023 11/10/2023 7:17 PM DOG SHOW JUDGE Rule Out COVID-19 01/18/2024 01/18/2024 01/18/2024 8:53 PM DOG SHOW JUDGE Rule Out COVID-19 01/28/2024 01/28/2024 01/28/2024 10:22 PM DOG SHOW JUDGE Rule Out COVID-19 02/17/2024 02/17/2024 02/17/2024 5:07 PM CDT Rule Out COVID-19 04/22/2024 04/22/202404/23/2024 12:06 AM CDT Assessment Noted Time PHQ-9 Depression Total Score: 3 05/27/20 23 5:00 PM CDT documented as of this encounter Care Teams Evaluation Assistant Relationship Specialty Start [place] [address] [place] [address] PCP - General Family Medicine 04/22/23 [place] [address] [place] [address] Assigned Pain Medication Provider 12/07/22 [place] [address] [place] [address] Assigned PCP 01/23/23 [place] [address] [facility] [address] Assigned Musculoskeletal Provider 01/23/23 09/19/24 Gregorio Dalton PA-C [address] [place] [address] Assigned Surgical Provider 05/22/23 07/20/24 Kingsley Garcia MD [address] [place] [address] Assigned Heart and Vascular Provider 08/07/23 [place] [address] [place] [address] Family Medicine 09/10/23 Master Shea PA-C [address] [place] [address] Physician Rn Lactation Gastroenterology 09/10/23 Allyssa Justice MD [facility] [address] [place] [address] Hematology & Oncology 12/10/23 Genaro Christian MD [address] [place] [address]85[address] Cardiovascular Disease 12/22/23 Master Shea PA-C [address] [place] [address] Assigned Gastroenterology Provider 12/23/23 Sienna Guillermo DO [address] [place] [address] Physician Cardiovascular Disease 01/18/24 Allyssa Justice MD [facility] [address] [place] [address] Assigned Cancer Care Provider 03/21/24 Declan Leavitt MD [address] [place], [place] [address] Assigned Surgical Provider 07/21/24 Ugo Ochoa MD [address] [place] [address]655 Assigned Neuroscience Provider 09/20/24 documented as of this encounter
--- OUTSIDE RECORDS SUMMARY | 2024-09-21 22:45 | XMS_ITS | Encounter Summary ---
Author Organization [facility] Address [address] [place] [address] Care Team Providers Care Mysql Database Developer Name Role Phone Segundo Mcclelland MD Unavailable [phone] Segundo Mcclelland MD Unavailable +[phone] Qamar Jackson MD Unavailable Segundo Mcclelland MD Primary Care Provider + Gregorio Dalton PA-C Unavailable +[phone] Kingsley Garcia MD Unavailable + [phone] Segundo Mcclelland MD Unavailable +[phone] Master Shea PA-C Unavailable Allyssa Justice MD Unavailable [phone] Genaro Christian MD Unavailable + [phone] Master Shea PA-C Unavailable Sienna Guillermo DO Unavailable +[phone] Allyssa Justice MD Unavailable [phone] Declan Leavitt MD Unavailable Ugo Ochoa MD Unavailable Encounter Details Date Type Department Care Team (Late st Contact Info) Description 12/17/2023 MyC Medical Advice [facility] [address] [facility] [address] [place] [address] [address] [facility] [place] [id number] Social History Tobacco Use Types Packs/Day Years [...] in an abandoned building, in an overnight snf, or couch-surfing.) Yes 08/26/2023 Are you worried [...] AM CDT Legal Sex Female 3:29 AM NURSING PROJECT COORDINATOR Gender Identity Female 05/26/2021 10:37 [...] 10:20 AM CDT Appointment [facility] Imaging [address] [place] [place] [phone] Allyssa Justice MD [facility] [address] [place] [address] [place] [address] 02/27/2025 10:40 AM CDT Virtual Visit [facility] [address], [place] [address] [facility] Medical Ctr [place] [phone] Allyssa Justice MD 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 Rule Out COVID-19 01/18/2024 01/18/2024 01/18/2024 8:53 PM NURSING PROJECT COORDINATOR Rule Out COVID-19 01/28/2024 01/28/2024 01/28/2024 10:22 PM NURSING PROJECT COORDINATOR Rule Out COVID-19 02/17/2024 02/17/2024 02/17/2024 5:07 PM CDT Rule Out COVID-19 04/22/2024 04/22/2024 04/23/2024 12:06 AM CDT Assessment Noted Time PHQ-9 Depression Total Score: 3 05/27/20 5:00 PM CDT documented as of this encounter Care Teams Mysql Database Developer Relationship Specialty Start [place] [address] [address] [address] PCP - General Family Medicine 04/22/23 [place] [address] [place] [address] Assigned Pain Medication Provider 12/07/22 [place] [address] [place] [address] Assigned PCP 01/23/23 [place] [address] [place] [address] Assigned Musculoskeletal Provider 01/23/23 09/19/24 Gregorio Dalton PA-C [address] [place] [address] Assigned Surgical Provider 05/22/23 07/20/24 Kingsley Garcia MD [address] [place] [address] Assigned Heart and Vascular Provider 08/07/23 [place] [address] [address] [address] Family Medicine 09/10/23 Master Shea PA-C [address] [place] [address] Physician Shredder Picker Gastroenterology 09/10/23 Allyssa Justice MD [facility] [address] [place] [address] [place] [address] Hematology & Oncology 12/10/23 Genaro Christian MD [address] [place] [address] Cardiovascular Disease 12/22/23 Master Shea PA-C [address] [place] [address] Assigned Gastroenterology Provider 12/23/23 Sienna Guillermo DO [address] [place] 949005 Physician Cardiovascular Disease 01/18/24 Allyssa Justice MD [facility] [address] [place] [address] [place] 826975 Assigned Cancer Care Provider 03/21/24 Declan Leavitt MD [address] [place] [address] [place] 640085 Assigned Surgical Provider 07/21/24 Ugo Ochoa MD [address] [place], [place] 793255 Assigned Neuroscience Provider 09/20/24 documented as of this encounter
--- OUTSIDE RECORDS SUMMARY | 2024-09-21 22:45 | XMS_ITS | Encounter Summary ---
Author Organization [facility] Address [address] [place] [address] Care Team Providers Care Residential Real Estate Sales Manager Name Role Phone Segundo Mcclelland MD Unavailable [phone] Segundo Mcclelland MD Unavailable +[phone] Qamar Jackson MD Unavailable Segundo Mcclelland MD Primary Care Provider + Gregorio Dalton PA-C Unavailable +[phone] Kingsley Garcia MD Unavailable + [phone] Segundo Mcclelland MD Unavailable +[phone] Master Shea PA-C Unavailable Allyssa Justice MD Unavailable [phone] Genaro Christian MD Unavailable + [phone] Master Shea PA-C Unavailable Sienna Guillermo DO Unavailable +[phone] Allyssa Justice MD Unavailable [phone] Declan Leavitt MD Unavailable Ugo Ochoa MD Unavailable Reason for Visit * Reason Onset Date Comments MyChart Communication 12/19/2023 Cancelled appt Encounter Details Date Type Department Care Team (Late st Contact Info) Description 12/19/2023 MyC Medical Advice [facility] [address] [place] [address] [place] [address] [facility] [place] [address] MyChart Communication (Cancelled appt) Social History Tobacco [...] AM CDT Legal Sex Female 3:29 AM 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 Please assist Dara Watson RN on 12/20/2023 at 8:45 AM ONAUTICAL ENGINEER documented in this encounter Plan of Treatment Upcoming Encounters Date Type Department Care Team (Late st Contact Info) Description 02/20/2025 10:20 AM CDT Appointment [facility] Imaging [address] [place] [address] [place] [address] Allyssa Justice MD [facility] [address] [place] [address] [place] [address] 02/27/2025 10:40 AM CDT Virtual Visit [facility] [address], [place] [address] [facility] Medical Ctr [place] [address] Allyssa Justice MD [facility] [address] [place] [address] [place] [address] documented as of this encounter Visit Diagnoses Not on file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 Rule Out COVID-19 01/18/2024 01/18/2024 01/18/2024 8:53 PM ASTRONAUTICAL ENGINEER Rule Out COVID-19 01/28/2024 01/28/2024 01/28/2024 10:22 PM ASTRONAUTICAL ENGINEER Rule Out COVID-19 02/17/2024 02/17/2024 02/17/2024 5:07 PM CDT Rule Out COVID-19 04/22/2024 04/22/2024 04/23/2024 12:06 AM CDT Assessment Noted Time PHQ-9 Depression Total Score: 3 05/27/20 5:00 PM CDT documented as of this encounter Care Teams Residential Real Estate Sales Manager Relationship Specialty Start [place] [address] [address] [address] PCP - General Family Medicine 04/22/23 [place] [address] [address] [address] Assigned Pain Medication Provider 12/07/22 [place] [address] [address] [address] Assigned PCP 01/23/23 [place] [address] [address] [place] [address] Assigned Musculoskeletal Provider 01/23/23 09/19/24 Gregorio Dalton PA-C [address] [address] Assigned Surgical Provider 05/22/23 07/20/24 Kingsley Garcia MD [address] [place] [address] Assigned Heart and Vascular Provider 08/07/23 [place] [address] [address] [address] Family Medicine 09/10/23 Master Shea PA-C [address] [place] [address] Physician Material Assistant Gastroenterology 09/10/23 Allyssa Justice MD [facility] [address] [place] [address] Hematology & Oncology 12/10/23 Genaro Christian MD [address] [place] [address] Cardiovascular Disease 12/22/23 Master Shea PA-C [address] [facility] [place] [address] Assigned Gastroenterology Provider 12/23/23 Sienna Guillermo DO [address] [place] [address] Physician Cardiovascular Disease 01/18/24 Allyssa Justice MD [facility] [address] [place] [address] Assigned Cancer Care Provider 03/21/24 Declan Leavitt MD [address] [place] [address] [place] 7975[address] Assigned Surgical Provider 07/21/24 Ugo Ochoa MD [address] [place] [address]65595 Assigned Neuroscience Provider 09/20/24 documented as of this encounter
--- OUTSIDE RECORDS SUMMARY | 2024-09-21 22:45 | XMS_ITS | Encounter Summary ---
Author Organization [facility] Address [address] [place] [address] Care Team Providers Care Pick Up Name Role Phone Segundo Mcclelland MD Unavailable [phone] Segundo Mcclelland MD Unavailable [phone] Qamar Jackson MD Unavailable Segundo Mcclelland MD Primary Care Provider + Gregorio Dalton PA-C Unavailable [phone] Kingsley Garcia MD Unavailable + [phone] Segundo Mcclelland MD Unavailable [phone] Master Shea PA-C Unavailable Allyssa Justice MD Unavailable [phone] Genaro Christian MD Unavailable + [phone] Master Shea PA-C Unavailable Sienna Guillermo DO Unavailable +[phone] Allyssa Justice MD Unavailable [phone] Declan Leavitt MD Unavailable Ugo Ochoa MD Unavailable Encounter Details Date Type Department Care Team (Late st Contact Info) Description 03/22/2024 MyC Medical Advice [facility] [address] [facility] [address] [place] [phone] Rita Gordon, RN [facility] [address] [place] [address] Social History Tobacco Use Types Packs/Day Years [...] AM CDT 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 Gender Identity Female 05/26/2021 10:37 AM CDT [...] Info) Description 02/20/2025 10:20 AM CDT Appointment [facility] Imaging [address] [place] [address] [place] [address] Allyssa Justice MD [facility] [address] [place] [address] [place] [address] 02/27/2025 10:40 AM CDT Virtual Visit [facility] [address], [place] [address] [facility] Medical Ctr [place] [phone] Allyssa Justice MD [facility] [address] [place] [address] [place] [address] documented as of this encounter Visit Diagnoses Not on file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 Rule Out COVID-19 04/22/2024 04/22/2024 04/23/2024 12:06 AM CDT Assessment Noted Time PHQ-9 Depression Total Score: 4 02/21/20 24 1:54 PM CDT documented as of this encounter Care Teams Pick Up Relationship Specialty Start [place] [address] [address] [address] PCP - General Family Medicine 04/22/23 [place] [address] [address] [address] Assigned Pain Medication Provider 12/07/22 [place] [address] [place] [address] Assigned PCP 01/23/23 [place] [address] [place] [address] Assigned Musculoskeletal Provider 01/23/23 09/19/24 Gregorio Dalton PA-C [address] [place] [address] Assigned Surgical Provider 05/22/23 07/20/24 Kingsley Garcia MD [address] [place] [address] Assigned Heart and Vascular Provider 08/07/23 [place] [address] [place] [address] Family Medicine 09/10/23 Master Shea PA-C [address] [facility] [place] [address] Physician Outdoor Adventure Leader Gastroenterology 09/10/23 Allyssa Justice MD [facility] [address] [place] [address] Hematology & Oncology 12/10/23 Genaro Christian MD 6 [place] [address] Cardiovascular Disease 12/22/23 Master Shea PA-C [address] [place] [address] Assigned Gastroenterology Provider 12/23/23 Sienna Guillermo DO [address] [place] [address] Physician Cardiovascular Disease 01/18/24 Allyssa Justice MD [facility] [address] [place] [address] [place] [address] Assigned Cancer Care Provider 03/21/24 Declan Leavitt MD [address] [place] [address] [place] [address] Assigned Surgical Provider 07/21/24 Ugo Ochoa MD [address] [place], [place] [address] Assigned Neuroscience Provider 09/20/24 documented as of this encounter
--- OUTSIDE RECORDS SUMMARY | 2024-09-21 22:45 | XMS_ITS | Encounter Summary ---
Author Organization [facility] Address [address] [place] [address] Care Team Providers Care Parasitology Teacher Name Role Phone Segundo Mcclelland MD Unavailable [phone] Segundo Mcclelland MD Unavailable [phone] Qamar Jackson MD Unavailable Segundo Mcclelland MD Primary Care Provider + Gregorio Dalton PA-C Unavailable +[phone] Kingsley Garcia MD Unavailable + [phone] Segundo Mcclelland MD Unavailable [phone] Master Shea PA-C Unavailable Allyssa Justice MD Unavailable [phone] Genaro Christian MD Unavailable [phone] Master Shea PA-C Unavailable Sienna Guillermo DO Unavailable +[phone] Allyssa Justice MD Unavailable [phone] Declan Leavitt MD Unavailable Ugo Ochoa MD Unavailable Reason for Visit * Reason Onset Date Comments Call Back 10/19/2023 Discuss Pt's Shashank ling Encounter Details Date Type Department Care Team (Late st Contact Info) Description 10/19/2023 Telephone [facility] [address] [place] [address] Master Shea PA-C [address] [place] [address] Call Back (Discuss Pt's Billing ) Social [...] AM CDT Legal Sex Female 3:29 AM FEEDER SWITCHBOARD OPERATOR Gender Identity Female 05/26/2021 10:37 AM [...] left with call back info provided. Saloni Norton, RN ER SWITCHBOARD OPERATOR * Telephone Encounter - Shabana Cyr - 10/19/2023 11:21 AM CST [facility] Call [facility] Phone Message May a detailed message be left on voicemail: yes Reason for Call: Other: Debbie is requesting a call back from the team please to discuss Pt's billing. Please reach out to discuss. Thank you! Action Taken: Message routed to: [facility] GI Travel Screening: Not Applicable ER SWITCHBOARD OPERATOR documented in this encounter Plan of Treatment Upcoming Encounters Date Type Department Care Team (Late st Contact Info) Description 02/20/2025 10:20 AM CDT Appointment [facility] Imaging [address] [facility] [address] [place] [phone] Allyssa Justice MD [facility] [address] [place] [address] 02/27/2025 10:40 AM CDT Virtual Visit [facility] [address] [place] [address] [facility] Medical Ctr [place] [phone] Allyssa Justice MD [facility] [address] [address] [place] [address] documented as of this encounter Visit Diagnoses Not on file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 Rule Out COVID-19 11/10/2023 11/10/2023 11/10/2023 7:17 PM FEEDER SWITCHBOARD OPERATOR Rule Out COVID-19 01/18/2024 01/18/2024 01/18/2024 8:53 PM FEEDER SWITCHBOARD OPERATOR Rule Out COVID-19 01/28/2024 01/28/2024 01/28/2024 10:22 PM FEEDER SWITCHBOARD OPERATOR Rule Out COVID-19 02/17/2024 02/17/2024 02/17/2024 5:07 PM CDT Rule Out COVID-19 04/22/2024 04/22/2024 04/23/2024 12:06 AM CDT Assessment Noted Time PHQ-9 Depression Total Score: 3 05/27/20 5:00 PM CDT documented as of this encounter Care Teams Parasitology Teacher Relationship Specialty Start [place] [address] [address] [address] PCP - General Family Medicine 04/22/23 [place] [address] [address] [address] Assigned Pain Medication Provider 12/07/22 [place] [address] [address] [address] Assigned PCP 01/23/23 [place] [address] [address] [place] [address] Assigned Musculoskeletal Provider 01/23/23 09/19/24 Gregorio Dalton PA-C [address] [place] [address] Assigned Surgical Provider 05/22/23 07/20/24 Kingsley Garcia MD [address] [place] [address] Assigned Heart and Vascular Provider 08/07/23 [place] [address] [place] [address] Family Medicine 09/10/23 Master Shea PA-C [address] [place] [place] [address] Physician Education Adviser Gastroenterology 09/10/23 Allyssa Justice MD [facility] [address] [place] [address] Hematology & Oncology 12/10/23 Genaro Christian MD [address] [place] [address] Cardiovascular Disease 12/22/23 Master Shea PA-C [address] [place] [address] Assigned Gastroenterology Provider 12/23/23 Sienna Guillermo DO [address] [place] [address] Physician Cardiovascular Disease 01/18/24 Allyssa Justice MD [facility] [address] [place] [address] Assigned Cancer Care Provider 03/21/24 Declan Leavitt MD [address] [place] [address] Assigned Surgical Provider 07/21/24 Ugo Ochoa MD [address] [place], [place] [address] Assigned Neuroscience Provider 09/20/24 documented as of this encounter
--- OUTSIDE RECORDS SUMMARY | 2024-09-21 22:45 | XMS_ITS | Encounter Summary ---
Author Organization [facility] Address [address] [place] [address] Care Team Providers Care Model Maker Firearms Name Role Phone Segundo Mcclelland MD Unavailable [phone] Segundo Mcclelland MD Unavailable [phone] Qamar Jackson MD Unavailable Segundo Mcclelland MD Primary Care Provider + Gregorio Dalton PA-C Unavailable +[phone] Kingsley Garcia MD Unavailable + [phone] Segundo Mcclelland MD Unavailable [phone] Master Shea PA-C Unavailable Allyssa Justice MD Unavailable [phone] Genaro Christian MD Unavailable + [phone] Master Shea PA-C Unavailable Sienna Guillermo DO Unavailable +[phone] Allyssa Justice MD Unavailable [phone] Declan Leavitt MD Unavailable Ugo Ochoa MD Unavailable Encounter Details Date Type Department Care Team (Late st Contact Info) Description 12/09/2023 MyC Medical Advice [facility] Cancer Care Service Line [facility] [place] [address] Aide Santamaria RN Social History Tobacco Use Types Packs/Day [...] AM CDT Legal Sex Female 3:29 AM FABRIC AND 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 ESTIMATOR Gender Identity Female 05/26/2021 10:37 AM CDT [...] Info) Description 02/20/2025 10:20 AM CDT Appointment [facility] Imaging [address] [place] [address] [place] [phone] Allyssa Justice MD [facility] [address] [place] [address] 02/27/2025 10:40 AM CDT Virtual Visit [facility] [address], [address] [facility] Medical Ctr [place] [phone] Allyssa Justice MD [facility] [address] [place] [address] documented as of this encounter Visit Diagnoses Not on file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 Rule Out COVID-19 01/18/2024 01/18/2024 01/18/2024 8:53 PM FABRIC AND ACCESSORIES ESTIMATOR Rule Out COVID-19 01/28/2024 01/28/2024 01/28/2024 10:22 PM FABRIC AND ACCESSORIES ESTIMATOR Rule Out COVID-19 02/17/2024 02/17/2024 02/17/2024 5:07 PM CDT Rule Out COVID-19 04/22/2024 04/22/2024 04/23/2024 12:06 AM CDT Assessment Noted Time PHQ-9 Depression Total Score: 3 05/27/20 5:00 PM CDT documented as of this encounter Care Teams Model Maker Firearms Relationship Specialty Start [place] [address] [address] [address] PCP - General Family Medicine 04/22/23 [place] [address] [address] [address] Assigned Pain Medication Provider 12/07/22 [place] [address] [place] [address] Assigned PCP 01/23/23 [place] [address] [place] [address] Assigned Musculoskeletal Provider 01/23/23 09/19/24 Gregorio Dalton PA-C [address] [address]25[address] Assigned Surgical Provider 05/22/23 07/20/24 Kingsley Garcia MD [address] [place] [address] Assigned Heart and Vascular Provider 08/07/23 [place] [address] [place] [address] Family Medicine 09/10/23 Master Shea PA-C [address] [place] [address] Gastroenterology 09/10/23 Allyssa Justice MD [facility] [address] [place] [address] Hematology & Oncology 12/10/23 Genaro Christian MD 6 [place], [place] [address] Cardiovascular Disease 12/22/23 Master Shea PA-C [address] [place] [address] Assigned Gastroenterology Provider 12/23/23 Sienna Guillermo DO [address] [place] [address] Physician Cardiovascular Disease 01/18/24 Allyssa Justice MD [facility] [address] [place] [address] Assigned Cancer Care Provider 03/21/24 Declan Leavitt MD [address] [place] [address] [place] [address] Assigned Surgical Provider 07/21/24 Ugo Ochoa MD 500 [place] [address] Assigned Neuroscience Provider 09/20/24 documented as of this encounter
--- OUTSIDE RECORDS SUMMARY | 2024-09-21 22:45 | XMS_ITS | Encounter Summary ---
Author Organization [place] Address [address] [place] [address] Care Team Providers Care Anhydrous Ammonia Production Supervisor Name Role Phone Segundo Mcclelland MD Unavailable +[phone] Segundo Mcclelland MD Unavailable +[phone] Qamar Jackson MD Unavailable Segundo Mcclelland MD Primary Care Provider + Gregorio Dalton PA-C Unavailable +[phone] Kingsley Garcia MD Unavailable + [phone] Segundo Mcclelland MD Unavailable +[phone] Master Shea PA-C Unavailable Allyssa Justice MD Unavailable [phone] Genaro Christian MD Unavailable + [phone] Master Shea PA-C Unavailable Sienna Guillermo DO Unavailable +[phone] Allyssa Justice MD Unavailable [phone] Declan Leavitt MD Unavailable Ugo Ochoa MD Unavailable Encounter Details Date Type Department Care Team (Late st Contact Info) Description 12/15/2023 MyC Medical Advice [facility] Medical Ctr [facility] [address] [place] [place] [address] Lani Quiles, RN Social History Tobacco Use [...] AM CDT 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 Gender Identity Female 05/26/2021 10:37 AM CDT [...] 10:20 AM CDT Appointment [facility] [address] [place] [phone] Allyssa Justice MD [facility] [address] [place] [address] 02/27/2025 10:40 AM CDT Virtual Visit [facility] [address], [address] [facility] [place] [phone] Allyssa Justice MD [facility] [address] [place] [address] documented as of this encounter Visit Diagnoses Not on file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 Rule Out COVID-19 01/18/2024 01/18/2024 01/18/2024 8:53 PM SHEET METAL MECHANIC Rule Out COVID-19 01/28/2024 01/28/2024 01/28/2024 10:22 PM SHEET METAL MECHANIC Rule Out COVID-19 02/17/2024 02/17/2024 02/17/2024 5:07 PM CDT Rule Out COVID-19 04/22/2024 04/22/2024 04/23/2024 12:06 AM CDT Assessment Noted Time PHQ-9 Depression Total Score: 3 05/27/20 5:00 PM CDT documented as of this encounter Care Teams Anhydrous Ammonia Production Supervisor Relationship Specialty Start [place] [address] [place] [address] PCP - General Family Medicine 04/22/23 [place] [address] [place] [address] Assigned Pain Medication Provider 12/07/22 [place] [address] [place] [address] Assigned PCP 01/23/23 [place] [address] [place] [address] Assigned Musculoskeletal Provider 01/23/23 09/19/24 Gregorio Dalton PA-C [address] [place] [address] Assigned Surgical Provider 05/22/23 07/20/24 Kingsley Garcia MD [address] [place] [address] Assigned Heart and Vascular Provider 08/07/23 [place] [address] [place] [address] Family Medicine 09/10/23 Master Shea PA-C [address] [place] [address] Physician Retail Sales Associate Gastroenterology 09/10/23 Allyssa Justice MD [facility] [address] [place] [address] Hematology & Oncology 12/10/23 Genaro Christian MD [address] [place] [address] Cardiovascular Disease 12/22/23 Master Shea PA-C [address] [place] [address] Assigned Gastroenterology Provider 12/23/23 Sienna Guillermo DO [address] [place] [address] Physician Cardiovascular Disease 01/18/24 Allyssa Justice MD [facility] [address] [place] [address] Assigned Cancer Care Provider 03/21/24 Declan Leavitt MD [address] [place] 549[address] Assigned Surgical Provider 07/21/24 Ugo Ochoa MD [address] [place] [address] Assigned Neuroscience Provider 09/20/24 documented as of this encounter
--- OUTSIDE RECORDS SUMMARY | 2024-09-21 22:45 | XMS_ITS | Encounter Summary ---
Author Organization [place] Address [address] [place] [address] Care Team Providers Care Fluorescent Solution Mixer Name Role Phone Segundo Mcclelland MD Unavailable [phone] Segundo Mcclelland MD Unavailable +[phone] Qamar Jackson MD Unavailable Segundo Mcclelalnd MD Primary Care Provider + Gregorio Dalton PA-C Unavailable +[phone] Kingsley Garcia MD Unavailable + [phone] Segundo Mcclelland MD Unavailable +[phone] Master Shea PA-C Unavailable Allyssa Justice MD Unavailable [phone] Genaro Christian MD Unavailable + [phone] Master Shea PA-C Unavailable Sienna Guillermo DO Unavailable +[phone] Allyssa Justice MD Unavailable [phone] Declan Leavitt MD Unavailable Ugo Ochoa MD Unavailable Encounter Details Date Type Department Care Team (Late st Contact Info) Description 12/13/2023 MyC Medical Advice [facility] [address] [place] [address] Sarah Stevens Social History Tobacco Use [...] AM CDT Legal Sex Female 3:29 AM 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 [address] [place] [address] 02/27/2025 10:40 AM CDT Virtual Visit [facility] [address], [address] [facility] Medical Ctr [place] [phone] Allyssa Justice MD 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 Rule Out COVID-19 01/18/2024 01/18/2024 01/18/2024 8:53 PM WHEELCHAIR VAN OPERATOR FIRST RESPONDER Rule Out COVID-19 01/28/2024 01/28/2024 01/28/2024 10:22 PM WHEELCHAIR VAN OPERATOR FIRST RESPONDER Rule Out COVID-19 02/17/2024 02/17/2024 02/17/2024 5:07 PM CDT Rule Out COVID-19 04/22/2024 04/22/2024 04/23/2024 12:06 AM CDT Assessment Noted Time PHQ-9 Depression Total Score: 3 05/27/20 23 5:00 PM CDT documented as of this encounter Care Teams Fluorescent Solution Mixer Relationship Specialty Start [place] [address] [place] [address] PCP - General Family Medicine 04/22/23 [place] [address] [place] [place] [address] Assigned Pain Medication Provider 12/07/22 [place] [address] [place] [address] Assigned PCP 01/23/23 [place] [address] [place] [address] Assigned Musculoskeletal Provider 01/23/23 09/19/24 Gregorio Dalton PA-C [address] [place] [address] Assigned Surgical Provider 05/22/23 07/20/24 Kingsley Garcia MD [address] [place] [address] Assigned Heart and Vascular Provider 08/07/23 [place] [address] [place] [address] Family Medicine 09/10/23 Masetr Shea PA-C [address] [place] [address] Physician Honing Machine Set Up Operator Gastroenterology 09/10/23 Allyssa Justice MD [facility] [address] [place] [address] Hematology & Oncology 12/10/23 Genaro Christian MD [address] [place] [address] 383225 Cardiovascular Disease 12/22/23 Master Shea PA-C [address] [place] [address] Assigned Gastroenterology Provider 12/23/23 Sienna Guillermo DO [address] [place] [address] Physician Cardiovascular Disease 01/18/24 Allyssa Justice MD [facility] [address] [place] [address] Assigned Cancer Care Provider 03/21/24 Declan Leavitt MD [address] [place] [address] Assigned Surgical Provider 07/21/24 Ugo Ochoa MD [address] [place] [address] Assigned Neuroscience Provider 09/20/24 documented as of this encounter
--- OUTSIDE RECORDS SUMMARY | 2024-09-21 22:45 | XMS_ITS | Encounter Summary ---
Author Organization [place] Address [address] [place] [address] Care Team Providers Care Automotive Exhaust Emissions Technician Name Role Phone Segundo Mcclelland MD Unavailable [phone] Segundo Mcclelland MD Unavailable +[phone] Qamar Jackson MD Unavailable Segundo Mcclelland MD Primary Care Provider + Gregorio Dalton PA-C Unavailable +[phone] Kingsley Garcia MD Unavailable + [phone] Segundo Mcclelland MD Unavailable +[phone] Master Shea PA-C Unavailable Allyssa Justice MD Unavailable [phone] Genaro Christian MD Unavailable + [phone] Master Shea PA-C Unavailable Sienna Guillermo DO Unavailable +[phone] Allyssa Justice MD Unavailable [phone] Declan Leavitt MD Unavailable Ugo Ochoa MD Unavailable Reason for Visit * Reason Comments Medication Refill Encounter Details Date Type Department Care Team (Late st Contact Info) Description 03/22/[address] 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 Rule Out COVID-19 04/22/2024 04/22/2024 04/23/2024 12:06 AM CDT Assessment Noted Time PHQ-9 Depression Total Score: 4 02/21/20 1:54 PM CDT documented as of this encounter Care Teams Automotive Exhaust Emissions Technician Relationship Specialty Start [place] [address] [place] [address] PCP - General Family Medicine 04/22/23 [place] [address] [place] [address] Assigned Pain Medication Provider 12/07/22 [place] [address] [place] [address] Assigned PCP 01/23/23 [place] [address] [place] [address] Assigned Musculoskeletal Provider 01/23/23 09/19/24 Gregorio Dalton PA-C [address] [place] [address] Assigned Surgical Provider 05/22/23 07/20/24 Kingsley Garcia MD [address] [place] [address] Assigned Heart and Vascular Provider 08/07/23 [place] [address] [place] [address] Family Medicine 09/10/23 Master Shea PA-C [address] [place] [address] Physician Director Of Elementary Education Gastroenterology 09/10/23 Allyssa Justice MD [facility] [address] [place] [address] Hematology & Oncology 12/10/23 Genaro Christian MD [address] [place] [address] Cardiovascular Disease 12/22/23 Master Shea PA-C [address] [place] [address] Assigned Gastroenterology Provider 12/23/23 Sienna Guillermo DO [address] [place] [address] Physician Cardiovascular Disease 01/18/24 Allyssa Justice MD [facility] [address] [place] [address] Assigned Cancer Care Provider 03/21/24 Declan Leavitt MD [address] [place] [address] Assigned Surgical Provider 07/21/24 Ugo Ochoa MD [address] [place] [address]185 Assigned Neuroscience Provider 09/20/24 documented as of this encounter
--- OUTSIDE RECORDS SUMMARY | 2024-09-21 22:45 | XMS_ITS | Encounter Summary ---
Author Organization [place] Address [address] [place] [address] Care Team Providers Care Environmental Management Specialist Name Role Phone Segundo Mcclelland MD Unavailable [phone] Segundo Mcclelland MD Unavailable +[phone] Qamar Jackson MD Unavailable Segundo Mcclelland MD Primary Care Provider + Gregorio Dalton PA-C Unavailable +[phone] Kingsley Garcia MD Unavailable + [phone] Segundo Mcclelland MD Unavailable [phone] Master Shea PA-C Unavailable Allyssa Justice MD Unavailable [phone] Genaro Christian MD Unavailable + [phone] Master Shea PA-C Unavailable Sienna Guillermo DO Unavailable +[phone] Allyssa Justice MD Unavailable [phone] Declan Leavitt MD Unavailable Ugo Ochoa MD Unavailable Encounter Details Date Type Department Care Team (Late st Contact Info) Description 05/02/[address] 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 Gender Identity Female 05/26/2021 10:37 AM [...] 02/20/2025 10:20 AM CDT Appointment [facility] [address] [facility] [address] [place] [address] Allyssa Justice MD [facility] [address] [place] [address] 02/27/2025 10:40 AM CDT Virtual Visit [facility] [address], [address] [facility] Medical Ctr [place] [phone] Allyssa Justice MD [facility] [address] [place] [address] documented as of this encounter Visit Diagnoses Not on file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 Assessment Noted Time PHQ-9 Depression Total Score: 4 02/21/20 24 1:54 PM CDT documented as of this encounter Care Teams Environmental Management Specialist Relationship Specialty Start [place] [address] [place] [address] PCP - General Family Medicine 04/22/23 [place] [address] [place] [address] Assigned Pain Medication Provider 12/07/22 [place] [address] [address] [address] Assigned PCP 01/23/23 [place] [address] [place] [address] Assigned Musculoskeletal Provider 01/23/23 09/19/24 Gregorio Dalton PA-C [address] [place] [address] [address] Assigned Surgical Provider 05/22/23 07/20/24 Kingsley Garcia MD [address] [place] [address] Assigned Heart and Vascular Provider 08/07/23 [place] [address] [place] [address] Family Medicine 09/10/23 Masetr Shea PA-C [address] [place] [address] Physician Mill Platform Supervisor Gastroenterology 09/10/23 Allyssa Justice MD [facility] [place] [address] [place] [address] Hematology & Oncology 12/10/23 Genaro Christian MD [address] [place], [place] [address] Cardiovascular Disease 12/22/23 Master Shea PA-C [address] [place] [address] Assigned Gastroenterology Provider 12/23/23 Sienna Guillermo DO [address] [place] [address] Physician Cardiovascular Disease 01/18/24 Allyssa Justice MD [facility] [address] [place] [id number] Assigned Cancer Care Provider 03/21/24 Declan Leavitt MD [address] [place] [id number] Assigned Surgical Provider 07/21/24 Ugo Ochoa MD [address] [place], [place] [address] Assigned Neuroscience Provider 09/20/24 documented as of this encounter
--- OUTSIDE RECORDS SUMMARY | 2024-09-21 22:45 | XMS_ITS | Encounter Summary ---
Author Organization [place] Address [address] [place] [address] Care Team Providers Care Herpetologist Name Role Phone Segundo Mcclelland MD Unavailable [phone] Segnudo Mcclelland MD Unavailable +[phone] Qamar Jackson MD Unavailable Segundo Mcclelland MD Primary Care Provider + Gregorio Dalton PA-C Unavailable +[phone] Kingsley Garcia MD Unavailable + [phone] Segundo Mcclelland MD Unavailable +[phone] Master Shea PA-C Unavailable Allyssa Justice MD Unavailable [phone] Genaro Christian MD Unavailable + [phone] Master Shea PA-C Unavailable Sienna Guillermo DO Unavailable +[phone] Allyssa Justice MD Unavailable [phone] Declan Leavitt MD Unavailable Ugo Ochoa MD Unavailable Reason for Visit * Reason Onset Date Comments Refill Request 08/23/2023 Encounter Details Date Type Department Care Team (Late st Contact Info) Description 08/23/2023 MyC Refill [facility] [address] [facility] [place] [address] [place] [address] [facility] [address] Refill Request Social History Tobacco Use [...] AM CDT 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 No / Unsure 08/22/2023 1:20 PM CDT documented as of this encounter Miscellaneous Notes * Telephone Encounter - Sienna Wilder RN - 08/23/2023 1:06 PM CDT See telephone call from 08/23/23 - Dr. Vela from [facility] requested to talk to Dr. Mcclelland. Message was sent to Dr. Mcclelland as well as text message. documented in this encounter Plan of Treatment Upcoming Encounters Date Type Department Care Team (Late st Contact Info) Description 02/20/2025 10:20 AM CDT Appointment [facility] [address] [facility] [address] [place] [address] Allyssa Justice MD [facility] [address] [place] [address] 02/27/2025 10:40 AM CDT Virtual Visit [facility] [address] [facility] Medical Ctr [place] [address] Allyssa Justice MD [facility] [address] [place] [phone] documented as of this encounter Visit Diagnoses Diagnosis Other tear of lateral meniscus of left knee as current injury, initial encounter 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 Rule Out COVID-19 11/10/2023 11/10/2023 11/10/2023 7:17 PM BULLARD OPERATOR Rule Out COVID-19 01/18/2024 01/18/2024 01/18/2024 8:53 PM BULLARD OPERATOR Rule Out COVID-19 01/28/2024 01/28/2024 01/28/2024 10:22 PM BULLARD OPERATOR Rule Out COVID-19 02/17/2024 02/17/2024 02/17/2024 5:07 PM CDT Rule Out COVID-19 04/22/2024 04/22/2024 04/23/2024 12:06 AM CDT Assessment Noted Time PHQ-9 Depression Total Score: 3 05/27/20 5:00 PM CDT documented as of this encounter Care Teams Herpetologist Relationship Specialty Start [place] [address] [address] [place] [address] PCP - General Family Medicine 04/22/23 [place] [address] [address] [address] Assigned Pain Medication Provider 12/07/22 [place] [address] [address] [address] Assigned PCP 01/23/23 [place] [address] [address] [place] [address] Assigned Musculoskeletal Provider 01/23/23 09/19/24 Gregorio Dalton PA-C [address] [address]278[address] Assigned Surgical Provider 05/22/23 07/20/24 Kingsley Garcia MD [address] [place] [address] Assigned Heart and Vascular Provider 08/07/23 [place] [address] [address] [address] Family Medicine 09/10/23 Master Shea PA-C [address] [address] [facility] [place] [address] Physician Package Sorter Gastroenterology 09/10/23 Allyssa Justice MD [facility] [address] [place] [address] Hematology & Oncology 12/10/23 Genaro Christian MD [address] [place] [address] Cardiovascular Disease 12/22/23 Master Shea PA-C [address] [address] [place] [address] Assigned Gastroenterology Provider 12/23/23 Sienna Guillermo DO [address] [place] [address] Physician Cardiovascular Disease 01/18/24 Allyssa Justice MD [facility] [address] [place] [address] Assigned Cancer Care Provider 03/21/24 Declan Leavitt MD [address] [place] [address] Assigned Surgical Provider 07/21/24 Ugo Ochoa MD [address] [place] [address] Assigned Neuroscience Provider 09/20/24 documented as of this encounter
--- OUTSIDE RECORDS SUMMARY | 2024-09-21 22:45 | XMS_ITS | Encounter Summary ---
Author Organization [place] Address [address] [place] [address] Care Team Providers Care Preventative Maintenance Technician Name Role Phone Segundo Mcclelland MD Unavailable [phone] Segundo Mcclelland MD Unavailable [phone] Qamar Jackson MD Unavailable Segundo cMclelland MD Primary Care Provider + Gregorio Dalton PA-C Unavailable +[phone] Kingsley Garcia MD Unavailable + [phone] Segundo Mcclelland MD Unavailable +[phone] Master Shea PA-C Unavailable Allyssa Justice MD Unavailable [phone] Genaro Christian MD Unavailable + [phone] Master Shea PA-C Unavailable Sienna Guillermo DO Unavailable +[phone] Allyssa Justice MD Unavailable [phone] Declan Leavitt MD Unavailable Ugo Ochoa MD Unavailable Encounter Details Date Type Department Care Team (Late st Contact Info) Description 01/20/2024 MyC Medical Advice [facility] [place] [address] [facility] [address] [place] [address] Sienna Guillermo DO [address] [place] [address] Social History Tobacco Use Types Packs/Day Years [...] AM CDT 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 Gender Identity Female 05/26/2021 10:37 AM [...] AM CDT Appointment [facility] [address] [facility] [address] [place] [address] Allyssa Justice MD [facility] [address] [place] [address] [place] [address] 02/27/2025 10:40 AM CDT Virtual Visit [facility] [address], [place] [address] [facility] [place] [phone] Allyssa Justice MD [facility] [address] [place] [address] [place] [address] documented as of this encounter Visit Diagnoses Not on file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 Rule Out COVID-19 01/28/2024 01/28/2024 01/28/2024 10:22 PM CUSTOMER OPERATIONS INTERN Rule Out COVID-19 02/17/2024 02/17/2024 02/17/2024 5:07 PM CDT Rule Out COVID-19 04/22/2024 04/22/2024 04/23/2024 12:06 AM CDT Assessment Noted Time PHQ-9 Depression Total Score: 3 05/27/20 23 5:00 PM CDT documented as of this encounter Care Teams Preventative Maintenance Technician Relationship Specialty Start [place] [address] [address] [place] [address] PCP - General Family Medicine 04/22/23 [place] [address] [address] [address] Assigned Pain Medication Provider 12/07/22 [place] [address] [address] [place] [id number] Assigned PCP 01/23/23 [place] [address] [facility] [place] [place] [address] Assigned Musculoskeletal Provider 01/23/23 09/19/24 Gregorio Dalton PA-C [address] [place] [address] Assigned Surgical Provider 05/22/23 07/20/24 Kingsley Garcia MD [address] [place] [address] Assigned Heart and Vascular Provider 08/07/23 [place] [address] [place] [address] Family Medicine 09/10/23 Master Shea PA-C [address] [facility] [place] [address] Physician Presser Automatic Gastroenterology 09/10/23 Allyssa Justice MD [facility] [address] [place] [address] [place] [address] Hematology & Oncology 12/10/23 Genaro Christian MD [address] [place] [address] Cardiovascular Disease 12/22/23 Master Shea PA-C [address] [place] [address] Assigned Gastroenterology Provider 12/23/23 Sienna Guillermo DO [address] [place] [address] Physician Cardiovascular Disease 01/18/24 Allyssa Justice MD [facility] [address] [place] [address] [place] [address] Assigned Cancer Care Provider 03/21/24 Declan Leavitt MD [address] [place] [address] [place] [address] Assigned Surgical Provider 07/21/24 Ugo Ochoa MD [address] [place], [place] [address] Assigned Neuroscience Provider 09/20/24 documented as of this encounter
--- OUTSIDE RECORDS SUMMARY | 2024-09-21 22:45 | XMS_ITS | Encounter Summary ---
Author Organization [place] Address [address] [place] [address] Care Team Providers Care Slot Shift Supervisor Name Role Phone Segundo Mcclelland MD Unavailable [phone] Segundo Mcclelland MD Unavailable [phone] Qamar Jackson MD Unavailable Segundo Mcclelland MD Primary Care Provider + Gregorio Dalton PA-C Unavailable +[phone] Kingsley Garcia MD Unavailable + [phone] Segundo Mcclelland MD Unavailable [phone] Master Shea PA-C Unavailable Allyssa Justice MD Unavailable [phone] Genaro Christian MD Unavailable + [phone] Master Shea PA-C Unavailable Sienna Guillermo DO Unavailable +[phone] Allyssa Justice MD Unavailable [phone] Declan Leavitt MD Unavailable Ugo Ochoa MD Unavailable Reason for Visit * Reason Onset Date Comments Refill Request 03/03/2024 Encounter Details Date Type Department Care Team (Late st Contact Info) Description 03/03/2024 MyC Refill [facility] [address] [place] [address] [place] [address] [facility] [place] [id number] Refill Request Social History Tobacco Use Types [...] AM CDT 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 Medical C[facility] [place] [phone] Allyssa Justice MD [facility] [address] [place] [address] [place] [address] documented as of this encounter Visit Diagnoses [...] documented as of this encounter Care Teams Slot Shift Supervisor Relationship Specialty Start [place] [address] [address] [address] PCP - General Family Medicine 04/22/23 [place] [address] [address] [address] Assigned Pain Medication Provider 12/07/22 [place] [address] [address] [address] Assigned PCP 01/23/23 [place] [address] [place] [address] Assigned Musculoskeletal Provider 01/23/23 09/19/24 Gregorio Dalton PA-C [address] [address] Assigned Surgical Provider 05/22/23 07/20/24 Kingsley Garcia MD [address] [place] [address] Assigned Heart and Vascular Provider 08/07/23 [place] [address] [address] [address] Family Medicine 09/10/23 Master Shea PA-C [address] [place] [address] Physician Pasteurizing Supervisor Gastroenterology 09/10/23 Allyssa Justice MD [facility] [address] [place] [address] [place] [address] Hematology & Oncology 12/10/23 Genaro Christian MD [address] [place] [address] Cardiovascular Disease 12/22/23 Master Shea PA-C [address] [facility] [place] [address] Assigned Gastroenterology Provider 12/23/23 Sienna Guillermo DO [address] [place] [address] Physician Cardiovascular Disease 01/18/24 Allyssa Justice MD [facility] [address] [place] [address] Assigned Cancer Care Provider 03/21/24 Declan Leavitt MD [address] [place] [address] [place], [place] [address] Assigned Surgical Provider 07/21/24 Ugo Ochoa MD [address] [place] [address] Assigned Neuroscience Provider 09/20/24 documented as of this encounter
--- OUTSIDE RECORDS SUMMARY | 2024-09-21 22:45 | XMS_ITS | Encounter Summary ---
Author Organization [place] Address [address] [place] [address] Care Team Providers Care Rope Twisting Machine Operator Name Role Phone Segundo Mcclelland MD Unavailable [phone] Segundo Mcclelland MD Unavailable [phone] Qamar Jackson MD Unavailable Segundo Mcclelland MD Primary Care Provider + Gregorio Dalton PA-C Unavailable +[phone] Kingsley Garcia MD Unavailable + [phone] Segundo Mcclelland MD Unavailable [phone] Master Shea PA-C Unavailable Allyssa Justice MD Unavailable [phone] Genaro Christian MD Unavailable + [phone] Master Shea PA-C Unavailable Sienna Guillermo DO Unavailable +[phone] Allyssa Justice MD Unavailable [phone] Declan Leavitt MD Unavailable Ugo Ochoa MD Unavailable Encounter Details Date Type Department Care Team (Late st Contact Info) Description 01/11/2024 Result Follow Up [facility] - General Medicine & Pediatrics [facility] [place] [address] Rafael Watson MD [address] [place] [address] Social History Tobacco Use Types Packs/Day Years [...] AM CDT 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 Rafael Watson MD STFEEDING EDUCATOR documented in this encounter Plan of Treatment Upcoming Encounters Date Type Department Care Team (Late st Contact Info) Description 02/20/2025 10:20 AM CDT Appointment [facility] Imaging [address] [place] [address] [place] [address] Allyssa Justice MD [facility] [address] [place] [address] [place] [address] 02/27/2025 10:40 AM CDT Virtual Visit [facility] [address] [place] [address] [facility] Medical Ctr [place] [phone] Allyssa Justice MD [facility] [address] [place] [address] [place] [address] documented as of this encounter Visit Diagnoses Not on file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 Rule Out COVID-19 01/18/2024 01/18/2024 01/18/2024 8:53 PM BREASTFEEDING EDUCATOR Rule Out COVID-19 01/28/2024 01/28/2024 01/28/2024 10:22 PM BREASTFEEDING EDUCATOR Rule Out COVID-19 02/17/2024 02/17/2024 02/17/2024 5:07 PM CDT Rule Out COVID-19 04/22/2024 04/22/2024 04/23/2024 12:06 AM CDT Assessment Noted Time PHQ-9 Depression Total Score: 3 05/27/20 5:00 PM CDT documented as of this encounter Care Teams Rope Twisting Machine Operator Relationship Specialty Start [place] [address] [address] [address] PCP - General Family Medicine 04/22/23 [place] [address] [address] [address] Assigned Pain Medication Provider 12/07/22 [place] [address] [address] [address] Assigned PCP 01/23/23 [place] [address] [address] [place] [address] Assigned Musculoskeletal Provider 01/23/23 09/19/24 Gregorio Dalton PA-C [address] [address] Assigned Surgical Provider 05/22/23 07/20/24 Kingsley Garcia MD [address] [place] [address] Assigned Heart and Vascular Provider 08/07/23 [place] [address] [address] [address] Family Medicine 09/10/23 Master Shea PA-C [address] [place] [address] Physician Inspector Fuel Hose Gastroenterology 09/10/23 Allyssa Justice MD [facility] [address] [place] [address] Hematology & Oncology 12/10/23 Genaro Christian MD [address] [place] [address]18215 Cardiovascular Disease 12/22/23 Master Shea PA-C [address] [facility] [place] [address] Assigned Gastroenterology Provider 12/23/23 Sienna Guillermo DO [address] [place] [address] Physician Cardiovascular Disease 01/18/24 Allyssa Justice MD [facility] [address] [place] [address] [place] [address] Assigned Cancer Care Provider 03/21/24 Declan Leavitt MD [address] [place] [address] [place] [address] Assigned Surgical Provider 07/21/24 Ugo Ochoa MD [address] [place] [address] Assigned Neuroscience Provider 09/20/24 documented as of this encounter
--- OUTSIDE RECORDS SUMMARY | 2024-09-21 22:45 | XMS_ITS | Encounter Summary ---
Author Organization [place] Address [address] [place] [address] Care Team Providers Care Glue Bone Crusher Name Role Phone Segundo Mcclelland MD Unavailable [phone] Segundo Mcclelland MD Unavailable +[phone] Qamar Jackson MD Unavailable Segundo Mcclelland MD Primary Care Provider + Gregorio Dalton PA-C Unavailable +[phone] Kingsley Garcia MD Unavailable + [phone] Segundo Mcclelland MD Unavailable +[phone] Master Shea PA-C Unavailable Allyssa Justice MD Unavailable [phone] Genaro Christian MD Unavailable + [phone] Master Shea PA-C Unavailable Sienna Guillermo DO Unavailable +[phone] Allyssa Justice MD Unavailable [phone] Declan Leavitt MD Unavailable Ugo cOhoa MD Unavailable Encounter Details Date Type Department Care Team (Late st Contact Info) Description 01/10/2024 MyC Medical Advice [facility] [address] [place] [address] [place] [address] [address] [facility] [place] [id number] Social History Tobacco Use Types Packs/Day Years [...] AM CDT Legal Sex Female 3:29 AM OUTSIDE MAINTENANCE WORKER Gender Identity Female 05/26/2021 10:37 AM [...] Solomon RN on 01/10/2024 at 2:33 PM IDE MAINTENANCE WORKER documented in this encounter Plan of Treatment Upcoming Encounters Date Type Department Care Team (Late st Contact Info) Description 02/20/2025 10:20 AM CDT Appointment [facility] Imaging [address] [place] [address] [place] [address] Allyssa Justice MD [facility] [address] [place] [address] [place] [address] 02/27/2025 10:40 AM CDT Virtual Visit [facility] [address] [place] [address] [facility] [place] [phone] Allyssa Justice MD [facility] [address] [place] [address] [place] [address] documented as of this encounter Visit Diagnoses Not on file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 Rule Out COVID-19 01/18/2024 01/18/2024 01/18/2024 8:53 PM OUTSIDE MAINTENANCE WORKER Rule Out COVID-19 01/28/2024 01/28/2024 01/28/2024 10:22 PM OUTSIDE MAINTENANCE WORKER Rule Out COVID-19 02/17/2024 02/17/2024 02/17/2024 5:07 PM CDT Rule Out COVID-19 04/22/2024 04/22/2024 04/23/2024 12:06 AM CDT Assessment Noted Time PHQ-9 Depression Total Score: 3 05/27/20 23 5:00 PM CDT documented as of this encounter Care Teams Glue Bone Crusher Relationship Specialty Start [place] [address] [address] [address] PCP - General Family Medicine 04/22/23 [place] [address] [address] [address] Assigned Pain Medication Provider 12/07/22 [place] [address] [address] [place] [address] Assigned PCP 01/23/23 [place] [address] [place] [address] Assigned Musculoskeletal Provider 01/23/23 09/19/24 Gregorio Dalton PA-C [address] [address] Assigned Surgical Provider 05/22/23 07/20/24 Kingsley Garcia MD [address] [place] [address] Assigned Heart and Vascular Provider 08/07/23 [place] [address] [address] [address] Family Medicine 09/10/23 Master Shea PA-C [address] [place] [address] Physician Wet Wash Assembler Gastroenterology 09/10/23 Allyssa Justice MD [facility] [address] [place] [address] Hematology & Oncology 12/10/23 Genaro Christian MD [address] [place] [address] Cardiovascular Disease 12/22/23 Master Shea PA-C [address] [place] [address] Assigned Gastroenterology Provider 12/23/23 Sienna Guillermo DO [address] [place] [address] Physician Cardiovascular Disease 01/18/24 Allyssa Justice MD [facility] [address] [place] [address] Assigned Cancer Care Provider 03/21/24 Declan Leavitt MD [address] [place] [place] [address] Assigned Surgical Provider 07/21/24 Ugo Ochoa MD [address] [place] [address] Assigned Neuroscience Provider 09/20/24 documented as of this encounter
--- OUTSIDE RECORDS SUMMARY | 2024-09-21 22:45 | XMS_ITS | Encounter Summary ---
Author Organization [place] Address [address] [place] [address] Care Team Providers Care Staff Cytotechnologist Name Role Phone Segundo Mcclelland MD Unavailable [phone] Segundo Mcclelland MD Unavailable [phone] Qamar Jackson MD Unavailable Segundo Mcclelland MD Primary Care Provider + Gregorio Dalton PA-C Unavailable +[phone] Kingsley Garcia MD Unavailable + [phone] Segundo Mcclelland MD Unavailable [phone] Master Shea PA-C Unavailable Allyssa Justice MD Unavailable [phone] Genaro Christian MD Unavailable + [phone] Master Shea PA-C Unavailable Sienna Guillermo DO Unavailable [phone] Allyssa Justice MD Unavailable [phone] Declan Leavitt MD Unavailable Ugo Ochoa MD Unavailable Encounter Details Date Type Department Care Team (Late st Contact Info) Description 09/27/2023 MyC Medical Advice [address] [address] Stephanie Mcintosh Social History Tobacco [...] AM CDT Legal Sex Female 3:29 AM BULB WEEDER Gender Identity Female 05/26/2021 10:37 AM CDT [...] Description 02/20/2025 10:20 AM CDT Appointment [facility] Imaging [address] [place] [address] [place] [phone] Allyssa Justice MD [facility] [address] [place] [address] [place] [address] 02/27/2025 10:40 AM CDT Virtual Visit [facility] [address] [facility] [place] [phone] Allyssa Justice MD [facility] [address] [place] [address] [place] [address] documented as of this encounter Visit Diagnoses Not on file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 Rule Out COVID-19 11/10/2023 11/10/2023 11/10/2023 7:17 PM BULB WEEDER Rule Out COVID-19 01/18/2024 01/18/2024 01/18/2024 8:53 PM BULB WEEDER Rule Out COVID-19 01/28/2024 01/28/2024 01/28/2024 10:22 PM BULB WEEDER Rule Out COVID-19 02/17/2024 02/17/2024 02/17/2024 5:07 PM CDT Rule Out COVID-19 04/22/2024 04/22/2024 04/23/2024 12:06 AM CDT Assessment Noted Time PHQ-9 Depression Total Score: 3 05/27/20 23 5:00 PM CDT documented as of this encounter Care Teams Staff Cytotechnologist Relationship Specialty Start [place] [address] [place] [address] PCP - General Family Medicine 04/22/23 [place] [address] [place] [address] Assigned Pain Medication Provider 12/07/22 [place] [address] [place] [address] Assigned PCP 01/23/23 [place] [address] [place] [address] Assigned Musculoskeletal Provider 01/23/23 09/19/24 Gregorio Dalton PA-C [address] [place] [address] Assigned Surgical Provider 05/22/23 07/20/24 Kingsley Garcia MD [address] [place] [address] Assigned Heart and Vascular Provider 08/07/23 [place] [address] [place] [address] Family Medicine 09/10/23 Master Shea PA-C [address] [place] [address] Physician Print Finishing Worker Gastroenterology 09/10/23 Allyssa Justice MD [facility] [address] [place] [address] Hematology & Oncology 12/10/23 Genaro Christian MD [address] [place] [address] Cardiovascular Disease 12/22/23 Master Shea PA-C [address] [facility] [place] [address] Assigned Gastroenterology Provider 12/23/23 Sienna Guillermo DO [address] [place] [address] Physician Cardiovascular Disease 01/18/24 Allyssa Justice MD [facility] [address] [place] [address] Assigned Cancer Care Provider 03/21/24 Declan Leavitt MD [address] [place] [address] [place] [address]49[address] Assigned Surgical Provider 07/21/24 Ugo Ochoa MD [address] [place] [address] 340275 Assigned Neuroscience Provider 09/20/24 documented as of this encounter
--- OUTSIDE RECORDS SUMMARY | 2024-09-21 22:46 | XMS_ITS | Encounter Summary ---
Author Organization [facility] Address [address] [place] [address] Care Team Providers Care Fine Sander Name Role Phone Sienna Guillermo DO Unavailable [phone] No Ref-Primary, Physician Primary Care Provider Mai UrenaC Unavailable [phone] Segundo Mcclelland MD Unavailable [phone] Segundo Mcclelland MD Unavailable [phone] Qamar Jackson MD Unavailable Segundo Mcclelland MD Primary Care Provider + Amy Montes De Oca RN Unavailable [phone] Gregorio Dalton-C Unavailable [phone] Kingsley Garcia MD Unavailable + [phone] Segundo Mcclellnad MD Unavailable +[phone] Master Shea PA-C Unavailable Allyssa Justice MD Unavailable [phone] Genaro Christian MD Unavailable Master Shea-C Unavailable Sienna Guillermo DO Unavailable [phone] Allyssa Justice MD Unavailable [phone] Declan Leavitt MD Unavailable Ugo Ochoa MD Unavailable Encounter Details Date Type Department Care Team (Late Contact Info) Description 01/04/2023 MyC Medical Advice [facility] [place] [id number] [facility] [address] [place] [phone] Cherise Luong Social History Tobacco Use Types Packs/Day Years Used Date Smoking Tobacco: Never Smokeless Tobacco: Never Alcohol Use Standard Drinks/Week Comments Yes 0 (1 standard drink = 0.6 oz pur e alcohol) occasional PHQ-2 Answer Date Recorded PHQ-2 Score 1 01/01/2023 Comments No Sex and Gender Information Value Date Recorded Sex Assigned at Female 05/26/2021 10:37 AM CDT Legal Sex Female 3:29 AM DAIRY POWDER MIXER OPERATOR Gender Identity Female 05/26/2021 10:37 AM [...] Coronavirus/COVID-19? No / Unsure 01/07/2023 11:17 AM DAIRY POWDER MIXER OPERATOR documented as of this encounter Plan of Treatment Upcoming Encounters Date Type Department Care Team (Late Contact Info) Description 02/20/2025 10:[address] [facility] [address] [facility] [address] [place] [address] Allyssa Justice MD [facility] [address] [place] [address] [place] [address] 02/27/2025 10:40 AM CDT Virtual Visit [facility] [address] [place] [address] [facility] Medical Ctr [place] [phone] Allyssa Justice MD [facility] [address] [place] [address] [place] [address] documented as of this encounter Visit Diagnoses Not on filedocumented in this encounter Additional Health Concerns Infection Onset Date Last Indicated Resolved Time Rule Out COVID-19 01/04/2023 01/04/2023 01/04/2023 8:32 PM DAIRY POWDER MIXER OPERATOR Rule Out C-difficile 01/04/2023 01/04/2023 023 1:46 AM DAIRY POWDER MIXER OPERATOR Rule Out C-difficile 01/07/2023 01/07/2023 023 8:18 PM DAIRY POWDER MIXER OPERATOR Rule Out C-difficile 06/04/2023 06/04/2023 023 11:28 AM CDT Rule Out Eleonora auris 06/04/2023 06/04/202306/07 9:24 AM CDT ESBL 10/23/2023 05/26/2024 Rule Out COVID-19 11/10/2023 11/10/2023 11/10/2023 7:17 PM DAIRY POWDER MIXER OPERATOR Rule Out COVID-19 01/18/2024 01/18/2024 01/18/2024 8:53 PM DAIRY POWDER MIXER OPERATOR Rule Out COVID-19 01/28/2024 01/28/2024 01/28/2024 10:22 PM DAIRY POWDER MIXER OPERATOR Rule Out COVID-19 02/17/2024 02/17/2024 02/17/2024 5:07 PM CDT Rule Out COVID-19 04/22/2024 04/22/2024 04/23/2024 12:06 AM CDT Assessment Noted Time PHQ-9 Depression Total Score: 6 01/01/20 9:53 AM DAIRY POWDER MIXER OPERATOR documented as of this encounter Care Teams Fine Sander Relationship Specialty Start Date End Date No Ref-Primary, Physician PCP - General 11/06/22 04/21/23 [place] [address] [address] [address] PCP - General Family Medicine 04/22/23 Sienna Guillermo DO [address] [place] [address] Assigned Heart and Vascular Provider 09/05/22 03/12/23 Mai Urena PA-C [address] [place] [address] Assigned PCP 10/31/22 01/22/23 [place] [address] [place], [place] [id number] Assigned Pain Medication Provider 12/07/22 [place] [address] [place] [address] Assigned PCP 01/23/23 [place] [address] [place] [address] Assigned Musculoskeletal Provider 01/23/23 09/19/24 Amy Montes De Oca, RN Clinic Electrostatic Paint Operator 05/13/2305/17 Gregorio Dalton PA-C [address] [place] [address] Assigned Surgical Provider 05/22/23 07/20/24 Kingsley Garcia MD [address] [place] [address] Assigned Heart and Vascular Provider 08/07/23 [place] [address] [address] [place] [address] Family Medicine 09/10/23 Master Shea PA-C [address] [place] [place] [address] Physician Community Engagement Specialist Gastroenterology 09/10/23 Allyssa Justice MD [facility] [address] [place] [address] [place] 200235 Hematology & Oncology 12/10/23 Genaro Christian MD [address] [place] [address] 527925 Cardiovascular Disease 12/22/23 Master Shea PA-C [address] [place] [address] Assigned Gastroenterology Provider 12/23/23 Sienna Guillermo DO [address] [place] 778995 Physician Cardiovascular Disease 01/18/24 Allyssa Justice MD [facility] [address] [place] [address] [place] 693695 Assigned Cancer Care Provider 03/21/24 Declan Leavitt MD [address] [place] [address] [place] 958985 Assigned Surgical Provider 07/21/24 Ugo Ochoa MD [address] [place] [address] Assigned Neuroscience Provider 09/20/24 documented as of this encounter
--- OUTSIDE RECORDS SUMMARY | 2024-09-21 22:46 | XMS_ITS | Encounter Summary ---
Author Organization [facility] Address [address] [place] [address] Care Team Providers Care Electric Meter Repairer Name Role Phone No Ref-Primary, Physician Primary Care Provider Segundo Mcclelland MD Unavailable [phone] Segundo Mcclelland MD Unavailable + [phone] Qamar Jackson MD Unavailable Segundo Mcclelland MD Primary Care Provider + Amy Montes De Oca RN Unavailable [phone] Gregorio Dalton-C Unavailable [phone] Kingsley Garcia MD Unavailable + [phone] Segundo Mcclelland MD Unavailable [phone] Master SheaC Unavailable Allyssa Justice MD Unavailable [phone] Genaro Christian MD Unavailable [phone] Master Shea-C Unavailable Sienna Guillermo DO Unavailable [phone] Allyssa Justice MD Unavailable [phone] Declan Leavitt MD Unavailable Ugo Ochoa MD Unavailable Encounter Details Date Type Department Care Team (Late st Contact Info) Description 04/15/2023 MyC Medical Advice [facility] [address] [place] [phone] [place] [address] [place] [address] Social History Tobacco Use Types Packs/Day Years Used Date Smoking Tobacco: Never Smokeless Tobacco: Never Alcohol Use Standard Drinks/Week Comments Yes 0 (1 standard drink = 0.6 oz pur e alcohol) occasional PHQ-2 Answer Date Recorded PHQ-2 Score 3 04/05/2023 Comments No Sex and Gender Information Value Date Recorded Sex Assigned at Female 05/26/2021 10:37 AM CDT Legal Sex Female 3:29 AM COMMUNITY NUTRITION EDUCATOR Gender Identity Female 05/26/2021 10:37 AM [...] Miscellaneous Notes * Telephone Encounter - Brittney Reyes RN - 04/16/2023 9:56 AM CDT Patient c/o side effects since starting topiramate. Brittney Reyes RN documented in this encounter Plan of Treatment Upcoming Encounters Date Type Department Care Team (Late st Contact Info) Description 02/20/2025 10:[address] [facility] Imaging [address] [facility] [address] [place] [address] Allyssa Justice MD [facility] [address] [address] [place] [address]40[address] 02/27/2025 10:40 AM CDT Virtual Visit [facility] [address] [place] [address] [facility] Medical Ctr [facility] [place] [phone] Allyssa Justice MD [facility] [address] [place] [address] [place] [address] documented as of this encounter Visit Diagnoses Not on filedocumented in this encounter Additional Health Concerns Infection Onset Date Last Indicated Resolved Time Rule Out C-difficile 06/04/2023 06/04/2023 023 11:28 AM CDT Rule Out Eleonora auris 06/04/2023 06/04/202306/07 9:24 AM CDT ESBL 10/23/2023 05/26/2024 Rule Out COVID-19 11/10/2023 11/10/2023 11/10/2023 7:17 PM COMMUNITY NUTRITION EDUCATOR Rule Out COVID-19 01/18/2024 01/18/2024 01/18/2024 8:53 PM COMMUNITY NUTRITION EDUCATOR Rule Out COVID-19 01/28/2024 01/28/2024 01/28/2024 10:22 PM COMMUNITY NUTRITION EDUCATOR Rule Out COVID-19 02/17/2024 02/17/2024 02/17/2024 5:07 PM CDT Rule Out COVID-19 04/22/2024 04/22/2024 04/23/2024 12:06 AM CDT Assessment Noted Time PHQ-9 Depression Total Score: 6 04/05/20 23 8:14 AM CDT documented as of this encounter Care Teams Electric Meter Repairer Relationship Specialty Start Date End Date No Ref-Primary, Physician PCP - General 11/06/22 04/21/23 [place] [address] [address] [address] PCP - General Family Medicine 04/22/23 [place] [address] [address] [address] Assigned Pain Medication Provider 12/07/22 [place] [address] [address] [address] Assigned PCP 01/23/23 [place] [address] [place] [address] Assigned Musculoskeletal Provider 01/23/23 09/19/24 Amy Montes De Oca RN Clinic Knurling Machine Tender 05/13/2305/17 Gregorio Dalton PA-C [address] [address] Assigned Surgical Provider 05/22/23 07/20/24 Kingsley Garcia MD [address] [place] [address] Assigned Heart and Vascular Provider 08/07/23 [place] [address] [address] [address] Family Medicine 09/10/23 Master Shea PA-C [address] [place] [address] Physician Chief Of Staff Gastroenterology 09/10/23 Allyssa Justice MD [facility] [address] [place] 25380[address] Hematology & Oncology 12/10/23 Genaro Christian MD [address] [place], [place] 568865 Cardiovascular Disease 12/22/23 Master Shea PA-C [address] [place], [place] 6937[address] Assigned Gastroenterology Provider 12/23/23 Sienna Guillermo DO [address] [place] [address] Physician Cardiovascular Disease 01/18/24 Allyssa Justice MD [facility] [address] [place] 7[address] Assigned Cancer Care Provider 03/21/24 Declan Leavitt MD [address] [place] [address] [place] [address]2755 Assigned Surgical Provider 07/21/24 Ugo Ochoa MD [address] [place] [address] 827265 Assigned Neuroscience Provider 09/20/24 documented as of this encounter
--- OUTSIDE RECORDS SUMMARY | 2024-09-21 22:46 | XMS_ITS | Encounter Summary ---
Author Organization [facility] Address [address] [place] [address] Care Team Providers Care Hand Twister Name Role Phone Segundo Mcclelland MD Unavailable [phone] Segundo Mcclelland MD Unavailable [phone] Qamar Jackson MD Unavailable Segundo Mcclelland MD Primary Care Provider + Gregorio Dalton PA-C Unavailable [phone] Kingsley Garcia MD Unavailable + [phone] Segundo Mcclelland MD Unavailable [phone] Master Shea PA-C Unavailable Allyssa Justice MD Unavailable [phone] Genaro Christian MD Unavailable Master Shea PA-C Unavailable Sienna Guillermo DO Unavailable [phone] Allyssa Justice MD Unavailable [phone] Declan Leavitt MD Unavailable Ugo Ochoa MD Unavailable Reason for Visit * Reason Onset Date Comments Appointment 08/04/2023 Tilt table Encounter Details Date Type Department Care Team (Late st Contact Info) Description 08/04/2023 Telephone [facility] [address] [place] [address] None Appointment (Tilt table ) Social History Tobacco Use Types Packs/Day Years Used Date Smoking Tobacco: Never Smokeless Tobacco: Never Alcohol Use Standard Drinks/Week Comments Yes 0 (1 standard drink = 0.6 oz pur e alcohol) occasional PHQ-2 Answer Date Recorded PHQ-2 Score 1 05/28/2023 Comments No Sex and Gender Information Value Date Recorded Sex Assigned at Female 05/26/2021 10:37 AM CDT Legal Sex Female 3:29 AM GROUP DIRECTOR EXPERIENCE Gender Identity Female 05/26/2021 10:37 AM CDT [...] Verito Jalloh - 08/04/2023 2:[address] [facility] Center Phone Message May a detailed [...] [facility] Imaging [address] [place] [place] [phone] Allyssa Justice MD [facility] [address] [place] [address] 02/27/2025 10:40 AM CDT Virtual Visit [facility] [address] [facility] Medical Ctr [facility] [place] [phone] Allyssa Justice MD [facility] [address] [place] 284965 documented as of this encounter Visit Diagnoses Not on file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 Rule Out COVID-19 11/10/2023 11/10/2023 11/10/2023 7:17 PM GROUP DIRECTOR EXPERIENCE Rule Out COVID-19 01/18/2024 01/18/2024 01/18/2024 8:53 PM GROUP DIRECTOR EXPERIENCE Rule Out COVID-19 01/28/2024 01/28/2024 01/28/2024 10:22 PM GROUP DIRECTOR EXPERIENCE Rule Out COVID-19 02/17/2024 02/17/2024 02/17/2024 5:07 PM CDT Rule Out COVID-19 04/22/2024 04/22/2024 04/23/2024 12:06 AM CDT Assessment Noted Time PHQ-9 Depression Total Score: 3 05/27/20 23 5:00 PM CDT documented as of this encounter Care Teams Hand Twister Relationship Specialty Start [place] [address] [address] [address] PCP - General Family Medicine 04/22/23 [place] [address] [address] [address] Assigned Pain Medication Provider 12/07/22 [place] [address] [address] [place] [address] Assigned PCP 01/23/23 [place] [address] [place] [address] Assigned Musculoskeletal Provider 01/23/23 09/19/24 Gregorio Dalton PA-C [address] [address] Assigned Surgical Provider 05/22/23 07/20/24 Kingsley Garcia MD [address] [place] [address] Assigned Heart and Vascular Provider 08/07/23 [place] [address] [address] [place] [address] Family Medicine 09/10/23 Master Shea PA-C [address] [place] [address] Physician Financial Investigator Gastroenterology 09/10/23 Allyssa Justice MD [facility] [address] [place] [address] Hematology & Oncology 12/10/23 Genaro Christian MD [address] [place] [address] Cardiovascular Disease 12/22/23 Master Shea PA-C [address] [place] [address] Assigned Gastroenterology Provider 12/23/23 Sienna Guillermo DO [address] [place] [address] Physician Cardiovascular Disease 01/18/24 Allyssa Justice MD [facility] [address] [place] [address] Assigned Cancer Care Provider 03/21/24 Declan Leavitt MD [address] [place] [address] [place] [address]29[address] Assigned Surgical Provider 07/21/24 Ugo Ochoa MD [address] [place], [place] 3527[address] Assigned Neuroscience Provider 09/20/24 documented as of this encounter
--- OUTSIDE RECORDS SUMMARY | 2024-09-21 22:46 | XMS_ITS | Encounter Summary ---
Author Organization [facility] Address [address] [place] [address] Care Team Providers Care Host/Hostess Restaurant Name Role Phone Segundo Mcclelland MD Unavailable [phone] Segundo Mcclelland MD Unavailable [phone] Qamar Jackson MD Unavailable Segundo Mcclelland MD Primary Care Provider + Gregorio Dalton PA-C Unavailable +[phone] Kingsley Garcia MD Unavailable + [phone] Segundo Mcclelland MD Unavailable [phone] Master Shea PA-C Unavailable Allyssa Justice MD Unavailable [phone] Genaro Christian MD Unavailable [phone] Master Shea PA-C Unavailable Sienna Guillermo DO Unavailable +[phone] Allyssa Justice MD Unavailable [phone] Declan Leavitt MD Unavailable Ugo Ochoa MD Unavailable Encounter Details Date Type Department Care Team (Late st Contact Info) Description 05/26/[address] 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 Heidi Gan [employer]older [employer] Notcher * Telephone Encounter - Heidi Gan - 05/27/2023 9:00 AM CDT Scheduled patient for pre-op tomorrow, 05/28. Currently preparing Referral Form and will place in provider basket when complete. Heidi Gan [employer] * Telephone Encounter - Sienna Wilder RN - 05/27/2023 8:21 AM CDT Will forward to the station, please try to help the pt schedule for a pre-op. Can you also see if you can help get Dr. Mcclelland form - I believe the pt is restricted - needs a form for a referral sent to [facility]. Will forward to Dr. Mcclelland for the referral and possible refill. documented in this encounter Plan of Treatment Upcoming Encounters Date Type Department Care Team (Late st Contact Info) Description 02/20/2025 10:20 AM CDT Appointment [facility] [address] [place] [phone] Allyssa Justice MD [facility] [address] [place] [address] 02/27/2025 10:40 AM CDT Virtual Visit [facility] [address] [facility] [place] [phone] Allyssa Justice MD [facility] [address] [place] 9[address] documented as of this encounter Visit Diagnoses Diagnosis Injury of right knee, subsequent encounter documented in this encounter Additional Health Concerns Infection Onset Date Last Indicated Resolved Time Rule Out C-difficile 06/04/2023 06/04/2023 023 11:28 AM CDT Rule Out Eleonora auris 06/04/2023 06/04/202306/07 9:24 AM CDT ESBL 10/23/2023 05/26/2024 Rule Out COVID-19 11/10/2023 11/10/2023 11/10/2023 7:17 PM AIRCRAFT CAPTAIN Rule Out COVID-19 01/18/2024 01/18/2024 01/18/2024 8:53 PM AIRCRAFT CAPTAIN Rule Out COVID-19 01/28/2024 01/28/2024 01/28/2024 10:22 PM AIRCRAFT CAPTAIN Rule Out COVID-19 02/17/2024 02/17/2024 02/17/2024 5:07 PM CDT Rule Out COVID-19 04/22/2024 04/22/2024 04/23/2024 12:06 AM CDT Assessment Noted Time PHQ-9 Depression Total Score: 6 04/05/20 8:14 AM CDT documented as of this encounter Care Teams Host/Hostess Restaurant Relationship Specialty Start [place] [address] [address] [address] PCP - General Family Medicine 04/22/23 [place] [address] [address] [address] Assigned Pain Medication Provider 12/07/22 [place] [address] [address] [address] Assigned PCP 01/23/23 [place] [address] [place] [address] Assigned Musculoskeletal Provider 01/23/23 09/19/24 Gregorio Dalton PA-C [address] [address] Assigned Surgical Provider 05/22/23 07/20/24 Kingsley Garcia MD [address] [place] [address] Assigned Heart and Vascular Provider 08/07/23 [place] [address] [place] [address] Family Medicine 09/10/23 Master Shea PA-C [address] [place] [address] Physician Pyrometallurgical Engineer Gastroenterology 09/10/23 Allyssa Justice MD [facility] [address] [place] [address] Hematology & Oncology 12/10/23 Genaro Christian MD [address] [place], [place] [address]487[address] Cardiovascular Disease 12/22/23 Master Shea PA-C [address] [place] [address] Assigned Gastroenterology Provider 12/23/23 Sienna Guillermo DO [address] [place] [address] Physician Cardiovascular Disease 01/18/24 Allyssa Justice MD [facility] [address] [place] [address] Assigned Cancer Care Provider 03/21/24 Declan Leavitt MD [address] [place] [address] [place] [address]44[address] Assigned Surgical Provider 07/21/24 Ugo Ochoa MD [address] [place], [place] 6[address] Assigned Neuroscience Provider 09/20/24 documented as of this encounter
--- OUTSIDE RECORDS SUMMARY | 2024-09-21 22:46 | XMS_ITS | Encounter Summary ---
Author Organization [facility] Address [address] [place] [address] Care Team Providers Care Research Support Specialist Name Role Phone No Ref-Primary, Physician Primary Care Provider Segundo Mcclelland MD Unavailable [phone] Segundo Mcclelland MD Unavailable + [phone] Qamar Jackson MD Unavailable Segundo Mcclelland MD Primary Care Provider + Amy Montes De Oca RN Unavailable [phone] Gregorio Dalton-C Unavailable [phone] Kingsley Garcia MD Unavailable + [phone] Segundo Mcclelland MD Unavailable [phone] Master SheaC Unavailable Allyssa Justice MD Unavailable [phone] Genaro Christian MD Unavailable [phone] Master Shea-C Unavailable Sienna Guillermo DO Unavailable +[phone] Allyssa Justice MD Unavailable [phone] Declan Leavitt MD Unavailable Ugo Ochoa MD Unavailable Encounter Details Date Type Department Care Team (Late st Contact Info) Description 03/27/2023 Kumar Medical Advice [facility] [place] [address] [place] [address] [place] [address] [place] [address] Acute bilateral knee pain (Primary Dx); Primary [...] AM CDT Legal Sex Female 3:29 AM CAR HOSTLER Gender Identity Female 05/26/2021 10:37 AM CDT [...] Miscellaneous Notes * Telephone Encounter - Uyen García, [facility] - 03/29/2023 9:49 AM CDT Patient was [...] CDT Appointment [facility] [address] [place] [address] [place] [phone] Allyssa Justice MD [facility] [address] [place] [address] 02/27/2025 10:40 AM CDT Virtual Visit [facility] [address] [facility] [place] [phone] Allyssa Justice MD [facility] [address] [place] 156965 documented as of this encounter Visit Diagnoses [...] Out COVID-19 11/10/2023 11/10/2023 11/10/2023 7:17 PM CAR HOSTLER Rule Out COVID-19 01/18/2024 01/18/2024 01/18/2024 8:53 PM CAR HOSTLER Rule Out COVID-19 01/28/2024 01/28/2024 01/28/2024 10:22 PM CAR HOSTLER Rule Out COVID-19 02/17/2024 02/17/2024 02/17/2024 5:07 PM CDT Rule Out COVID-19 04/22/2024 04/22/2024 04/23/2024 12:06 AM CDT Assessment Noted Time PHQ-9 Depression Total Score: 6 01/01/20 9:53 AM CAR HOSTLER documented as of this encounter Care Teams Research Support Specialist Relationship Specialty Start Date End Date No Ref-Primary, Physician PCP - General 11/06/22 04/21/23 [place] [address] [address] [address] PCP - General Family Medicine 04/22/23 [place] [address] [address] [address] Assigned Pain Medication Provider 12/07/22 [place] [address] [address] [address] Assigned PCP 01/23/23 [place] [address] [place] [address] Assigned Musculoskeletal Provider 01/23/23 09/19/24 Amy Montes De Oca, RN Clinic Electric Wheelchair Repairer 05/13/2305/17 Gregorio Dalton PA-C [address] [address] Assigned Surgical Provider 05/22/23 07/20/24 Kingsley Garcia MD [address] [place] 384625 Assigned Heart and Vascular Provider 08/07/23 [place] [address] [place] [address] Family Medicine 09/10/23 Master Shea PA-C [address] [place]ARCÍ[place] MD 411469 Physician Bench Molder Apprentice Gastroenterology 09/10/23 Allyssa Justice MD [facility] [address] [place] 045105 Hematology & Oncology 12/10/23 Genaro Christian MD [address] [place] [address] 335605 Cardiovascular Disease 12/22/23 Master Shea PA-C [address] [place] [address] Assigned Gastroenterology Provider 12/23/23 Sienna Guillermo DO [address] [place] 626565 Physician Cardiovascular Disease 01/18/24 Allyssa Justice MD [facility] [address] [place] 660685 Assigned Cancer Care Provider 03/21/24 Declan Leavitt MD [address] [facility] [address] [place] [address] Assigned Surgical Provider 07/21/24 Ugo Ochoa MD 500 [place], [place] [id number] Assigned Neuroscience Provider 09/20/24 documented as of this encounter
--- OUTSIDE RECORDS SUMMARY | 2024-09-21 22:46 | XMS_ITS | Encounter Summary ---
Author Organization [facility] Address [address] [place] [address] Care Team Providers Care Cheesemaker Helper Name Role Phone Segundo Mcclelland MD Unavailable [phone] Segundo Mcclelland MD Unavailable +[phone] Qamar Jackson MD Unavailable Segundo Mcclelland MD Primary Care Provider + Gregorio Dalton PA-C Unavailable +[phone] Kingsley Garcia MD Unavailable + [phone] Segundo Mcclelland MD Unavailable +[phone] Master Shea PA-C Unavailable Allyssa Justice MD Unavailable [phone] Genaro Christian MD Unavailable + [phone] Master Shea PA-C Unavailable Sienna Guillermo DO Unavailable +[phone] Allyssa Justice MD Unavailable [phone] Declan Leavitt MD Unavailable Ugo Ochoa MD Unavailable Encounter Details Date Type Department Care Team (Late st Contact Info) Description 07/23/2023 MyC Medical Advice [facility] [place] [address] [facility] [address] [place] [phone] Gregorio Dalton PA-C [address] [place] [address] Social History Tobacco Use Types Packs/Day Years Used Date Smoking Tobacco: Never Smokeless Tobacco: Never Alcohol Use Standard Drinks/Week Comments Yes 0 (1 standard drink = 0.6 oz pur e alcohol) occasional PHQ-2 Answer Date Recorded PHQ-2 Score 1 05/28/2023 Comments No Sex and Gender Information Value Date Recorded Sex Assigned at Female 05/26/2021 10:37 AM CDT Legal Sex Female 3:29 AM FURNACE PUNCHER Gender Identity Female 05/26/2021 10:37 AM [...] Info) Description 02/20/2025 10:20 AM CDT Appointment [facility] [address] [place] [phone] Allyssa Justice MD [facility] [address] [place] 026655 02/27/2025 10:40 AM CDT Virtual Visit [facility] [address], [address] [facility] [place] [phone] Allyssa Justice MD [place] [id number] [place] [address] documented as of this encounter Visit Diagnoses Not on file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 Rule Out COVID-19 11/10/2023 11/10/2023 11/10/2023 7:17 PM FURNACE PUNCHER Rule Out COVID-19 01/18/2024 01/18/2024 01/18/2024 8:53 PM FURNACE PUNCHER Rule Out COVID-19 01/28/2024 01/28/2024 01/28/2024 10:22 PM FURNACE PUNCHER Rule Out COVID-19 02/17/2024 02/17/2024 02/17/2024 5:07 PM CDT Rule Out COVID-19 04/22/2024 04/22/2024 04/23/2024 12:06 AM CDT Assessment Noted Time PHQ-9 Depression Total Score: 3 05/27/20 5:00 PM CDT documented as of this encounter Care Teams Cheesemaker Helper Relationship Specialty Start [place] [address] [address] [address] PCP - General Family Medicine 04/22/23 [place] [address] [address] [address] Assigned Pain Medication Provider 12/07/22 [place] [address] [address] [address] Assigned PCP 01/23/23 [place] [address] [address] [place] [address] Assigned Musculoskeletal Provider 01/23/23 09/19/24 Gregorio Dalton PA-C [address] [place] [address] Assigned Surgical Provider 05/22/23 07/20/24 Kingsley Garcia MD [address] [place] [address] Assigned Heart and Vascular Provider 08/07/23 [place] [address] [address] [address] Family Medicine 09/10/23 Master Shea PA-C [address] [place] [address] Physician Sewing Machinist Gastroenterology 09/10/23 Allyssa Justice MD [facility] [address] [place] 967955 Hematology & Oncology 12/10/23 Genaro Christian MD 6 [place], [place] 081555 Cardiovascular Disease 12/22/23 Master Shea PA-C [address] [place] [address] Assigned Gastroenterology Provider 12/23/23 Sienna Guillermo DO [address] [place] [address] Physician Cardiovascular Disease 01/18/24 Allyssa Justice MD [facility] [address] [place] [id number] Assigned Cancer Care Provider 03/21/24 Declan Leavitt MD [address] [place] [id number] Assigned Surgical Provider 07/21/24 Ugo Ochoa MD 500 [place] [address] Assigned Neuroscience Provider 09/20/24 documented as of this encounter
--- OUTSIDE RECORDS SUMMARY | 2024-09-21 22:46 | XMS_ITS | Encounter Summary ---
Author Organization [facility] Address [address] [place] [address] Care Team Providers Care Patient Transportation Driver Name Role Phone Segundo Mcclelland MD Unavailable [phone] Segundo Mcclelland MD Unavailable [phone] Qmaar Jackson MD Unavailable Segundo Mcclelland MD Primary Care Provider + Gregorio Dalton PA-C Unavailable [phone] Kingsley Garcia MD Unavailable + [phone] Segundo Mcclelland MD Unavailable [phone] Master Shea PA-C Unavailable Allyssa Justice MD Unavailable [phone] Genaro Christian MD Unavailable + [phone] Master Shea PA-C Unavailable Sienna Guillermo DO Unavailable +[phone] Allyssa Justice MD Unavailable [phone] Declan Leavitt MD Unavailable Ugo Ochoa MD Unavailable Encounter Details Date Type Department Care Team (Late st Contact Info) Description 07/27/2023 MyC Medical Advice [facility] [address] [place] [address] [place] [address] [place] [address] Social History Tobacco Use Types Packs/Day Years Used Date Smoking Tobacco: Never Smokeless Tobacco: Never Alcohol Use Standard Drinks/Week Comments Yes 0 (1 standard drink = 0.6 oz pur e alcohol) occasional PHQ-2 Answer Date Recorded PHQ-2 Score 1 05/28/2023 Comments No Sex and Gender Information Value Date Recorded Sex Assigned at Female 05/26/2021 10:37 AM CDT 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 Sex Female 3:29 AM MARINE METEOROLOGIST Gender Identity Female 05/26/2021 10:37 AM CDT [...] 02/20/2025 10:20 AM CDT Appointment [facility] [address] [facility] [address] [place] [phone] Allyssa Justice MD [facility] [address] [place] [address] 02/27/2025 10:40 AM CDT Virtual Visit [facility] [address], [address] [facility] Medical Ctr [place] [phone] Allyssa Justice MD [facility] [address] [place] [address] documented as of this encounter Visit Diagnoses Not on file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 Rule Out COVID-19 11/10/2023 11/10/2023 11/10/2023 7:17 PM MARINE METEOROLOGIST Rule Out COVID-19 01/18/2024 01/18/2024 01/18/2024 8:53 PM MARINE METEOROLOGIST Rule Out COVID-19 01/28/2024 01/28/2024 01/28/2024 10:22 PM MARINE METEOROLOGIST Rule Out COVID-19 02/17/2024 02/17/2024 02/17/2024 5:07 PM CDT Rule Out COVID-19 04/22/2024 04/22/2024 04/23/2024 12:06 AM CDT Assessment Noted Time PHQ-9 Depression Total Score: 3 05/27/20 5:00 PM CDT documented as of this encounter Care Teams Patient Transportation Driver Relationship Specialty Start [place] [address] [address] [address] PCP - General Family Medicine 04/22/23 [place] [address] [address] [address] Assigned Pain Medication Provider 12/07/22 [place] [address] [address] [address] Assigned PCP 01/23/23 [place] [address] [address] [address] Assigned Musculoskeletal Provider 01/23/23 09/19/24 Gregorio Dalton PA-C [address] [place] [address] Assigned Surgical Provider 05/22/23 07/20/24 Kingsley Garcia MD [address] [place] [address] Assigned Heart and Vascular Provider 08/07/23 [place] [address] [address] [place] [address] Family Medicine 09/10/23 Master Shea PA-C [address] [place] [place] [address] Physician Surgical Nurse Gastroenterology 09/10/23 Allyssa Justice MD [facility] [address] [place] 067285 Hematology & Oncology 12/10/23 Genaro Christian MD 6 [place], [place] 582785 Cardiovascular Disease 12/22/23 Master Shea PA-C [address] [place] [address] Assigned Gastroenterology Provider 12/23/23 Sienna Guillermo DO [address] [place] [address] Physician Cardiovascular Disease 01/18/24 Allyssa Justice MD [facility] [address] [place] 048565 Assigned Cancer Care Provider 03/21/24 Declan Leavitt MD [address] [place] 963375 Assigned Surgical Provider 07/21/24 Ugo Ochoa MD 500 [place], [place] 928815 Assigned Neuroscience Provider 09/20/24 documented as of this encounter
--- OUTSIDE RECORDS SUMMARY | 2024-09-21 22:46 | XMS_ITS | Encounter Summary ---
Author Organization [facility] Address [address] [place] [address] Care Team Providers Care Map Clerk Name Role Phone Segundo Mcclelland MD Unavailable [phone] Segundo Mcclelland MD Unavailable + [phone] Qamar Jackson MD Unavailable Segundo Mcclelland MD Primary Care Provider + Amy Montes De Oca RN Unavailable [phone] Gregorio Dalton-C Unavailable [phone] Kingsley Garcia MD Unavailable + [phone] Segundo Mcclelland MD Unavailable + [phone] Master Shea PA-C Unavailable Allyssa Justice MD Unavailable [phone] Genaro Christian MD Unavailable [phone] Master Shea PA-C Unavailable Sienna Guillermo DO Unavailable +[phone] Allyssa Justice MD Unavailable [phone] Declan Leavitt MD Unavailable Ugo Ochoa MD Unavailable Encounter Details Date Type Department Care Team (Late st Contact Info) Description 05/12/2023 MyC Medical Advice [facility] [place] [address], [address] [place] [phone] Clive Mittal, [place] Social History Tobacco Use Types Packs/Day [...] CDT Legal Sex Female 3:29 AM INSTRUCTOR PSYCHIATRIC AIDE Gender Identity Female 05/26/2021 10:37 AM CDT [...] 02/20/2025 10:20 AM CDT Appointment [facility] [address] [place] [phone] [facility] [address] [place] [address] 02/27/2025 10:40 AM CDT Virtual Visit [facility] [address], [address] [facility] [place] [phone] [facility] [address] [place] [address] documented as of this encounter Visit Diagnoses Not on filedocumented in this encounter Additional Health Concerns Infection Onset Date Last Indicated Resolved Time Rule Out C-difficile 06/04/2023 06/04/2023 023 11:28 AM CDT Rule Out Eleonora auris 06/04/2023 06/04/202306/07 9:24 AM CDT ESBL 10/23/2023 05/26/2024 Rule Out COVID-19 11/10/2023 11/10/2023 11/10/2023 7:17 PM INSTRUCTOR PSYCHIATRIC AIDE Rule Out COVID-19 01/18/2024 01/18/2024 01/18/2024 8:53 PM INSTRUCTOR PSYCHIATRIC AIDE Rule Out COVID-19 01/28/2024 01/28/2024 01/28/2024 10:22 PM INSTRUCTOR PSYCHIATRIC AIDE Rule Out COVID-19 02/17/2024 02/17/2024 02/17/2024 5:07 PM CDT Rule Out COVID-19 04/22/2024 04/22/2024 04/23/2024 12:06 AM CDT Assessment Noted Time PHQ-9 Depression Total Score: 6 04/05/20 23 8:14 AM CDT documented as of this encounter Care Teams Map Clerk Relationship Specialty Start [place] [address] [address] [address] PCP - General Family Medicine 04/22/23 [place] [address] [address] [address] Assigned Pain Medication Provider 12/07/22 [place] [address] [address] [address] Assigned PCP 01/23/23 [place] [address] [place] [address] Assigned Musculoskeletal Provider 01/23/23 09/19/24 Amy Montes De Oca, RN Clinic Software Educator 05/13/2305/17 Gregorio Dalton PA-C [address] [address] Assigned Surgical Provider 05/22/23 07/20/24 Kingsley Garcia MD [address] [place] [address] Assigned Heart and Vascular Provider 08/07/23 [place] [address] [place] [address] Family Medicine 09/10/23 Master Shea PA-C [address] [place] [address] Physician Helper/Driver Gastroenterology 09/10/[address] [facility] [address] [place] [address] Hematology & Oncology 12/10/23 Genaro Christian MD [address] [place] [address] 656855 Cardiovascular Disease 12/22/23 Master Seha PA-C [address] [place] [address] Assigned Gastroenterology Provider 12/23/23 Sienna Guillermo DO [address] [place] [address] Physician Cardiovascular Disease 01/18/[address] [facility] [address] [place] [address] Assigned Cancer Care Provider 03/21/24 Declan Leavitt MD [address] [place] [address] Assigned Surgical Provider 07/21/24 Ugo Ochoa MD [address] [place] [address] Assigned Neuroscience Provider 09/20/24 documented as of this encounter
--- OUTSIDE RECORDS SUMMARY | 2024-09-21 22:46 | XMS_ITS | Encounter Summary ---
Author Organization [place] Address [address] [place] [address] Care Team Providers Care Infrastructure Administrator Name Role Phone No Ref-Primary, Physician Primary Care Provider Segundo Mcclelland MD Unavailable [phone] Segundo Mcclelland MD Unavailable + [phone] Qamar Jackson MD Unavailable Segundo Mcclelland MD Primary Care Provider + Amy Montes De Oca RN Unavailable [phone] Gregorio Dalton-C Unavailable [phone] Kingsley Garcia MD Unavailable + [phone] Segundo Mcclelland MD Unavailable [phone] Master SheaC Unavailable Allyssa Justice MD Unavailable Genaro Christian MD Unavailable [phone] Master Shea-C Unavailable Sienna Guillermo DO Unavailable +[phone] Allyssa Justice MD Unavailable [phone] Declan Leavitt MD Unavailable Ugo Ochoa MD Unavailable Encounter Details Date Type Department Care Team (Late st Contact Info) Description 04/12/2023 MyC Medical Advice [facility] [place] [address] [facility] [address] [place] [phone] Ag Jessika Social History Tobacco Use Types Packs/Day Years Used Date Smoking Tobacco: Never Smokeless Tobacco: Never Alcohol Use Standard Drinks/Week Comments Yes 0 (1 standard drink = 0.6 oz pur e alcohol) occasional PHQ-2 Answer Date Recorded PHQ-2 Score 3 04/05/2023 Comments No Sex and Gender Information Value Date Recorded Sex Assigned at Female 05/26/2021 10:37 AM CDT Legal Sex Female 3:29 AM CHARGE PREPARATION TECHNICIAN Gender Identity Female 05/26/2021 10:37 AM [...] 10:20 AM CDT Appointment [facility] Imaging [address] [facility] [address] [place] [phone] Allyssa Justice MD [facility] [address] [place] [id number] 02/27/2025 10:40 AM CDT Virtual Visit [facility] [address] [facility] Medical [facility] [place] [phone] Allyssa Justice MD [facility] [address] [place] [address] documented as of this encounter Visit Diagnoses Not on filedocumented in this encounter Additional Health Concerns Infection Onset Date Last Indicated Resolved Time Rule Out C-difficile 06/04/2023 06/04/2023 023 11:28 AM CDT Rule Out Eleonora auris 06/04/2023 06/04/202306/07 9:24 AM CDT ESBL 10/23/2023 05/26/2024 Rule Out COVID-19 11/10/2023 11/10/2023 11/10/2023 7:17 PM CHARGE PREPARATION TECHNICIAN Rule Out COVID-19 01/18/2024 01/18/2024 01/18/2024 8:53 PM CHARGE PREPARATION TECHNICIAN Rule Out COVID-19 01/28/2024 01/28/2024 01/28/2024 10:22 PM CHARGE PREPARATION TECHNICIAN Rule Out COVID-19 02/17/2024 02/17/2024 02/17/2024 5:07 PM CDT Rule Out COVID-19 04/22/2024 04/22/2024 04/23/2024 12:06 AM CDT Assessment Noted Time PHQ-9 Depression Total Score: 6 04/05/20 8:14 AM CDT documented as of this encounter Care Teams Infrastructure Administrator Relationship Specialty Start Date End Date No Ref-Primary, Physician PCP - General 11/06/22 04/21/23 [place] [address] [address] [address] PCP - General Family Medicine 04/22/23 [place] [address] [address] [address] Assigned Pain Medication Provider 12/07/22 [place] [address] [address] [address] Assigned PCP 01/23/23 [place] [address] [place] [address] Assigned Musculoskeletal Provider 01/23/23 09/19/24 Amy Montes De Oca, RN Clinic President College [employer] 05/13/2305/17 Gregorio Dalton PA-C [address] [address] Assigned Surgical Provider 05/22/23 07/20/24 Kingsley Garcia MD [address] [place] [address] Assigned Heart and Vascular Provider 08/07/23 [place] [address] [place] [address] Family Medicine 09/10/23 Master Shea PA-C [address] [place] [place] [address] Physician Secretarial Teacher Gastroenterology 09/10/23 Allyssa Justice MD [facility] [address] [place] 274135 Hematology & Oncology 12/10/23 Genaro Christian MD 6 [place], [place] [address] Cardiovascular Disease 12/22/23 Master Shea PA-C [address] [place] [address] Assigned Gastroenterology Provider 12/23/23 Sienna Guillermo DO [address] [place] [address] Physician Cardiovascular Disease 01/18/24 Allyssa Justice MD [facility] [address] [place] 449545 Assigned Cancer Care Provider 03/21/24 Declan Leavitt MD [address] [place] [address] [place] 581825 Assigned Surgical Provider 07/21/24 Ugo Ochoa MD 500 [place], [place] 294085 Assigned Neuroscience Provider 09/20/24 documented as of this encounter
--- OUTSIDE RECORDS SUMMARY | 2024-09-21 22:46 | XMS_ITS | Encounter Summary ---
Author Organization [facility] Address [address] [place] [address] Care Team Providers Care Theatre Director Name Role Phone Sienna Guillermo DO Unavailable [phone] No Ref-Primary, Physician Primary Care Provider Mai UrenaC Unavailable Segundo Mcclelland MD Unavailable [phone] Segundo Mcclelland MD Unavailable [phone] Qamar Jackson MD Unavailable Segundo Mcclelland MD Primary Care Provider + Amy Montes De Oca RN Unavailable [phone] Gregorio Dalton-C Unavailable [phone] Kingsley Garcia MD Unavailable + [phone] Segundo Mcclelland MD Unavailable +[phone] Master Shea PA-C Unavailable Allyssa Justice MD Unavailable [phone] Genaro Christian MD Unavailable Master Shea-C Unavailable DankleSienna DO Unavailable [phone] Allyssa Justice MD Unavailable [phone] Declan Leavitt MD Unavailable Ugo Ochoa MD Unavailable Reason for Visit * Reason Onset Date Comments Refill Request 11/04/2022 Encounter Details Date Type Department Care Team (Late st Contact Info) Description 11/04/2022 MyC Refill [address] [address] [place] [address] [place] [address] Refill Request Social History Tobacco Use Types Packs/Day Years Used Date Smoking Tobacco: Never Smokeless Tobacco: Never Alcohol Use Standard Drinks/Week Comments Yes 0 (1 standard drink = 0.6 oz pur e alcohol) occasional PHQ-2 Answer Date Recorded PHQ-2 Score 2 05/19/2022 Comments No Sex and Gender Information Value Date Recorded Sex Assigned at Female 05/26/2021 10:37 AM CDT Legal Sex Female 3:29 AM DIRECTOR OF EMAIL MARKETING Gender Identity Female 05/26/2021 10:37 AM CDT [...] See Mychart request Cherise Arredondo RN, BSN [facility] CTOR OF EMAIL MARKETING documented in this encounter Plan of Treatment Upcoming Encounters Date Type Department Care Team (Late st Contact Info) Description 02/20/2025 10:20 AM CDT Appointment [facility] Imaging [address] [address] [place] [phone] Allyssa Justice MD [facility] [address] [place] [address] [place] [address] 02/27/2025 10:40 AM CDT Virtual Visit [place] [address] [address], [place] 610 [facility] [place] [phone] Allyssa Justice MD [facility] [address] [place] [address] [place] [address] documented as of this encounter Visit Diagnoses Diagnosis Influenza A Influenza with other respiratory manifestations documented in this encounter Additional Health Concerns Infection Onset Date Last Indicated Resolved Time Rule Out COVID-19 01/04/2023 01/04/2023 01/04/2023 8:32 PM DIRECTOR OF EMAIL MARKETING Rule Out C-difficile 01/04/2023 01/04/2023 023 1:46 AM DIRECTOR OF EMAIL MARKETING Rule Out C-difficile 01/07/2023 01/07/2023 023 8:18 PM DIRECTOR OF EMAIL MARKETING Rule Out C-difficile 06/04/2023 06/04/2023 023 11:28 AM CDT Rule Out Eleonora auris 06/04/2023 06/04/202306/07 9:24 AM CDT ESBL 10/23/2023 05/26/2024 Rule Out COVID-19 11/10/2023 11/10/2023 11/10/2023 7:17 PM DIRECTOR OF EMAIL MARKETING Rule Out COVID-19 01/18/2024 01/18/2024 01/18/2024 8:53 PM DIRECTOR OF EMAIL MARKETING Rule Out COVID-19 01/28/2024 01/28/2024 01/28/2024 10:22 PM DIRECTOR OF EMAIL MARKETING Rule Out COVID-19 02/17/2024 02/17/2024 02/17/2024 5:07 PM CDT Rule Out COVID-19 04/22/2024 04/22/2024 04/23/2024 12:06 AM CDT Assessment Noted Time PHQ-9 Depression Total Score: 7 05/19/20 10:06 AM CDT documented as of this encounter Care Teams Theatre Director Relationship Specialty Start Date End Date No Ref-Primary, Physician PCP - General 11/06/22 04/21/23 [place] [address] [address] [address] PCP - General Family Medicine 04/22/23 iSenna Guillermo DO [address] [place] [address] Assigned Heart and Vascular Provider 09/05/22 03/12/23 Mai Urena PA-C [address] [place] [address] Assigned PCP 10/31/22 01/22/23 [place] [address] [address] [address] Assigned Pain Medication Provider 12/07/22 [place] [address] [address] [address] Assigned PCP 01/23/23 [place] [address] [address] [place] [address] Assigned Musculoskeletal Provider 01/23/23 09/19/24 Amy Montes De Oca, RN Clinic Motors Assembler 05/13/2305/17 Gregorio Dalton PA-C [address] [place] [address] Assigned Surgical Provider 05/22/23 07/20/24 Kingsley Garcia MD [address] [place] [address] Assigned Heart and Vascular Provider 08/07/23 [place] [address] [place] [address] Family Medicine 09/10/23 Master Shea PA-C [address] [place] [address] Physician Top Former Gastroenterology 09/10/23 Allyssa Justice MD [facility] [address] [place] [address] [place] [place] 269445 Hematology & Oncology 12/10/23 Genaro Christian MD 6 [place], [place] [address] Cardiovascular Disease 12/22/23 Master Shea PA-C [address] [place] [address] Assigned Gastroenterology Provider 12/23/23 Sienna Guillermo DO [address] [place] [address] Physician Cardiovascular Disease 01/18/24 Allyssa Justice MD [facility] [address] [place] [id number] Assigned Cancer Care Provider 03/21/24 Declan Leavitt MD [address] [place] [id number] Assigned Surgical Provider 07/21/24 Ugo Ochoa MD [address] [place] [address] Assigned Neuroscience Provider 09/20/24 documented as of this encounter
--- OUTSIDE RECORDS SUMMARY | 2024-09-21 22:46 | XMS_ITS | Encounter Summary ---
Author Organization [facility] Address [address] [place] [address] Care Team Providers Care Employee Benefits Insurance Agent Name Role Phone Segundo Mcclelland MD Unavailable [phone] Segundo Mcclelland MD Unavailable [phone] Qamar Jackson MD Unavailable Segundo Mcclelland MD Primary Care Provider + Gregorio Dalton PA-C Unavailable [phone] Kingsley Garcia MD Unavailable + [phone] Segundo Mcclelland MD Unavailable [phone] Master Shea PA-C Unavailable Allyssa Justice MD Unavailable [phone] Genaro Christian MD Unavailable [phone] Master Shea PA-C Unavailable Sienna Guillermo DO Unavailable [phone] Allyssa Justice MD Unavailable [phone] Declan Leavitt MD Unavailable Ugo Ochoa MD Unavailable Encounter Details Date Type Department Care Team (Late st Contact Info) Description 05/18/2023 MyC Medical Advice [facility] [place] [address], [address] [place] [phone] Clive Mittal, LEEANNE Social History Tobacco Use [...] AM CDT Legal Sex Female 3:29 AM LYE PEEL OPERATOR Gender Identity Female 05/26/2021 10:37 AM [...] Info) Description 02/20/2025 10:20 AM CDT Appointment [facility] [address] [facility] [address] [place] [phone] Allyssa Jusitce MD [facility] [address] [place] [address] [place] [address] 02/27/2025 10:40 AM CDT Virtual Visit [facility] [address], [place] [address] [facility] Medical [facility]tr [place] [address] [place] [phone] Allyssa Justice MD [facility] [address] [address] [place] [place] [address] documented as of this encounter Visit Diagnoses Not on filedocumented in this encounter Additional Health Concerns Infection Onset Date Last Indicated Resolved Time Rule Out C-difficile 06/04/2023 06/04/2023 023 11:28 AM CDT Rule Out Eleonora auris 06/04/2023 06/04/202306/07 9:24 AM CDT ESBL 10/23/2023 05/26/2024 Rule Out COVID-19 11/10/2023 11/10/2023 11/10/2023 7:17 PM LYE PEEL OPERATOR Rule Out COVID-19 01/18/2024 01/18/2024 01/18/2024 8:53 PM LYE PEEL OPERATOR Rule Out COVID-19 01/28/2024 01/28/2024 01/28/2024 10:22 PM LYE PEEL OPERATOR Rule Out COVID-19 02/17/2024 02/17/2024 02/17/2024 5:07 PM CDT Rule Out COVID-19 04/22/2024 04/22/2024 04/23/2024 12:06 AM CDT Assessment Noted Time PHQ-9 Depression Total Score: 6 04/05/20 8:14 AM CDT documented as of this encounter Care Teams Employee Benefits Insurance Agent Relationship Specialty Start [place] [address] [address] [address] PCP - General Family Medicine 04/22/23 [place] [address] [address] [address] Assigned Pain Medication Provider 12/07/22 [place] [address] [address] [address] Assigned PCP 01/23/23 [place] [address] [address] [place] [place] [address] Assigned Musculoskeletal Provider 01/23/23 09/19/24 Gregorio Dalton PA-C [address] [place] [address] Assigned Surgical Provider 05/22/23 07/20/24 Kingsley Garcia MD [address] [place] [address] Assigned Heart and Vascular Provider 08/07/23 [place] [address] [place] [address] Family Medicine 09/10/23 Master Shea PA-C [address] [place] [place] [address] Physician Utilization Review Specialist Gastroenterology 09/10/23 Allyssa Justice MD [facility] [address] [place] [address] [place] [address] Hematology & Oncology 12/10/23 Genaro Christian MD 6 [place] [address] Cardiovascular Disease 12/22/23 Master Shea PA-C [address] [place] [address] Assigned Gastroenterology Provider 12/23/23 Sienna Guillermo DO [address] [place] [address] Physician Cardiovascular Disease 01/18/24 Allyssa Justice MD [facility] [address] [address] [place] [address]394[address] Assigned Cancer Care Provider 03/21/24 Declan Leavitt MD [address] [place] 823945 Assigned Surgical Provider 07/21/24 Ugo Ochoa MD [address] [place], [place] 6396[address] Assigned Neuroscience Provider 09/20/24 documented as of this encounter
--- OUTSIDE RECORDS SUMMARY | 2024-09-21 22:46 | XMS_ITS | Encounter Summary ---
Author Organization [facility] Address [address] [place] [address] Care Team Providers Care Cyber Security Architect Name Role Phone Sienna Guillermo DO Unavailable [phone] No Ref-Primary, Physician Primary Care Provider Mai UrenaC Unavailable [phone] Segundo Mcclelland MD Unavailable [phone] Segundo Mcclelland MD Unavailable +[phone] Qamar Jackson MD Unavailable Segundo Mcclelland MD Primary Care Provider + Amy Montes De Oca RN Unavailable [phone] Gregorio Dalton-C Unavailable [phone] Kingsley Garcia MD Unavailable + [phone] Segundo Mcclelland MD Unavailable [phone] Master Shea PA-C Unavailable Allyssa Justice MD Unavailable [phone] Genaro Christian MD Unavailable Master Shea-C Unavailable Sienna Guillermonifer DO Unavailable [phone] Allyssa Justice MD Unavailable [phone] Declan Leavitt MD Unavailable Ugo Ochoa MD Unavailable Reason for Visit * Reason Onset Date Comments Prior Auth - Medication 01/02/2023 semaglut yury (OZEMPIC) 2 MG/1.5ML SOPN pen - EPA DENIED Encounter Details Date Type Department Care Team (Late st Contact Info) Description 01/02/[address] [facility] [address] [place] [address] [place] [address] [place] [address] Prior Auth - Medication (semaglutide [...] CDT Legal Sex Female 3:29 AM GATE TENDER Gender Identity Female 05/26/2021 10:37 AM [...] Coronavirus/COVID-19? No / Unsure 01/04/2023 3:15 PM GATE TENDER documented as of this encounter Miscellaneous Notes * Telephone Encounter - [email or web address] - 01/02/2023 10:48 AM CST Images from the original note were not included. Central Prior Authorization Team PRIOR AUTHORIZATION DENIED Medication: semaglutide (OZEMPIC) 2 MG/1.5ML SOPN pen - EPA DENIED Denial Date: 01/01/2023 Denial Rational: Appeal Information: TENDER documented in this encounter Plan of Treatment Upcoming Encounters Date Type Department Care Team (Late st Contact Info) Description 02/20/2025 10:20 AM CDT Appointment [facility] Imaging [address] [facility] [address] [place] [address] Allyssa Justice MD [facility] [address] [address] [place] [address] 02/27/2025 10:40 AM CDT Virtual Visit [facility] [address] [address] [facility] [place] [address] Allyssa Justice MD [facility] [address] [place] [address] [place] [address] documented as of this encounter Visit Diagnoses Not on filedocumented in this encounter Additional Health Concerns Infection Onset Date Last Indicated Resolved Time Rule Out COVID-19 01/04/2023 01/04/2023 01/04/2023 8:32 PM GATE TENDER Rule Out C-difficile 01/04/2023 01/04/2023 023 1:46 AM GATE TENDER Rule Out C-difficile 01/07/2023 01/07/2023 023 8:18 PM GATE TENDER Rule Out C-difficile 06/04/2023 06/04/2023 023 11:28 AM CDT Rule Out Eleonora auris 06/04/2023 06/04/202306/07 9:24 AM CDT ESBL 10/23/2023 05/26/2024 Rule Out COVID-19 11/10/2023 11/10/2023 11/10/2023 7:17 PM GATE TENDER Rule Out COVID-19 01/18/2024 01/18/2024 01/18/2024 8:53 PM GATE TENDER Rule Out COVID-19 01/28/2024 01/28/2024 01/28/2024 10:22 PM GATE TENDER Rule Out COVID-19 02/17/2024 02/17/2024 02/17/2024 5:07 PM CDT Rule Out COVID-19 04/22/2024 04/22/2024 04/23/2024 12:06 AM CDT Assessment Noted Time PHQ-9 Depression Total Score: 6 01/01/20 9:53 AM GATE TENDER documented as of this encounter Care Teams Cyber Security Architect Relationship Specialty Start Date End Date No Ref-Primary, Physician PCP - General 11/06/22 04/21/23 [place] [address] [address] [address] PCP - General Family Medicine 04/22/23 Sienna Guillermo DO [address] [place] 5507[address] Assigned Heart and Vascular Provider 09/05/22 03/12/23 Mai Urena PA-C [address] [address] [address] Assigned PCP 10/31/22 01/22/23 [place] [address] [address] [address] Assigned Pain Medication Provider 12/07/22 [place] [address] [address] [address] Assigned PCP 01/23/23 [place] [address] [place] [address] Assigned Musculoskeletal Provider 01/23/23 09/19/24 Aym Montes De Oca, RN Clinic Fast Food Manager 05/13/2305/17 Gregorio Dalton PA-C [address] [place] [address] Assigned Surgical Provider 05/22/23 07/20/24 Kingsley Garcia MD [address] [place] [address] Assigned Heart and Vascular Provider 08/07/23 [place] [address] [place] [address] Family Medicine 09/10/23 Master Shea PA-C [address] [facility] [place] [address] Physician Auto Body Detailer Gastroenterology 09/10/23 Allyssa Justice MD [facility] [address] [place] [address] Hematology & Oncology 12/10/23 Genaro Christian MD 6 [place] [address] Cardiovascular Disease 12/22/23 Master Shea PA-C [address] [place] [address] Assigned Gastroenterology Provider 12/23/23 Sienna Guillermo DO [address] [place] [address]456[address] Physician Cardiovascular Disease 01/18/24 Allyssa Justice MD [facility] [address] [place] [address] [place] [address]104[address] Assigned Cancer Care Provider 03/21/24 Declan Leavitt MD [address] [place] [address] [place] 1470[address] Assigned Surgical Provider 07/21/24 Ugo Ochoa MD [address] [place], [place] 137[address] Assigned Neuroscience Provider 09/20/24 documented as of this encounter
--- OUTSIDE RECORDS SUMMARY | 2024-09-21 22:46 | XMS_ITS | Encounter Summary ---
Author Organization [facility] Address [address] [place] [address] Care Team Providers Care Bailiff Name Role Phone Sienna Guillermo DO Unavailable [phone] No Ref-Primary, Physician Primary Care Provider Segundo Mcclelland MD Unavailable [phone] Segundo Mcclelland MD Unavailable [phone] Qamar Jackson MD Unavailable Segundo Mcclelland MD Primary Care Provider + Amy Montes De Oca RN Unavailable [phone] Gregorio Dalton-C Unavailable [phone] Kingsley Garcia MD Unavailable + [phone] Segundo Mcclelland MD Unavailable +[phone] Master Shea PA-C Unavailable Allyssa Justice MD Unavailable [phone] Genaro Christian MD Unavailable [phone] Master Shea-C Unavailable Sienna Guillermo DO Unavailable [phone] Allyssa Justice MD Unavailable [phone] Declan Leavitt MD Unavailable Ugo Ochoa MD Unavailable Encounter Details Date Type Department Care Team (Late st Contact Info) Description 02/11/2023 MyC Medical Advice [facility] [place] [address] [facility] [address] [place], [place] [address] [place] [address] [facility] [address] [place], [place] 4[address] Acute bilateral knee pain (Primary Dx) Social [...] AM CDT Legal Sex Female 3:29 AM RASPBERRY CHECKER Gender Identity Female 05/26/2021 10:37 AM CDT [...] AM CDT Appointment [facility] Imaging [address] [facility] [address] [place] [address] Allyssa Justice MD [facility] [address] [place], [place] [address] 02/27/2025 10:40 AM CDT Virtual Visit [facility] [address] [facility] [place] [phone] Allyssa Justice MD [facility] [address] [place] [address] documented as of this encounter Visit Diagnoses Diagnosis Acute bilateral knee pain- Primary documented in this encounter Additional Health Concerns Infection Onset Date Last Indicated Resolved Time Rule Out C-difficile 06/04/2023 06/04/2023 023 11:28 AM CDT Rule Out Eleonora auris 06/04/2023 06/04/202306/07 9:24 AM CDT ESBL 10/23/2023 05/26/2024 Rule Out COVID-19 11/10/2023 11/10/2023 11/10/2023 7:17 PM RASPBERRY CHECKER Rule Out COVID-19 01/18/2024 01/18/2024 01/18/2024 8:53 PM RASPBERRY CHECKER Rule Out COVID-19 01/28/2024 01/28/2024 01/28/2024 10:22 PM RASPBERRY CHECKER Rule Out COVID-19 02/17/2024 02/17/2024 02/17/2024 5:07 PM CDT Rule Out COVID-19 04/22/2024 04/22/2024 04/23/2024 12:06 AM CDT Assessment Noted Time PHQ-9 Depression Total Score: 6 01/01/20 9:53 AM RASPBERRY CHECKER documented as of this encounter Care Teams Bailiff Relationship Specialty Start Date End Date No Ref-Primary, Physician PCP - General 11/06/22 04/21/23 [place] [address] [address] [address] PCP - General Family Medicine 04/22/23 Sienna Guillermo DO [address] [place] [address] Assigned Heart and Vascular Provider 09/05/22 03/12/23 [place] [address] [place] [address] Assigned Pain Medication Provider 12/07/22 [place] [address] [place] [address] Assigned PCP 01/23/23 [place] [address] [place] [address] Assigned Musculoskeletal Provider 01/23/23 09/19/24 Amy Montes De Oca RN Clinic Sales And Service Engineer 05/13/2305/17 Gregorio Dalton PA-C [address] [place] [address] Assigned Surgical Provider 05/22/23 07/20/24 Kingsley Garcia MD [address] [place] [address] Assigned Heart and Vascular Provider 08/07/23 [place] [address] [address] [address] Family Medicine 09/10/23 Master Shea PA-C [address] [place] [address] Physician Employment Trainer Gastroenterology 09/10/23 Allyssa Justice MD [facility] [address] [place] [address] Hematology & Oncology 12/10/23 Genaro Christian MD [address] [place], [place] 7632[address] Cardiovascular Disease 12/22/23 Master Shea PA-C [address] [facility] [address] Assigned Gastroenterology Provider 12/23/23 Sienna Guillermo DO [address] [place], [place] [address] Physician Cardiovascular Disease 01/18/24 Allyssa Justice MD [facility] [address] [place] [address] Assigned Cancer Care Provider 03/21/24 Declan Leavitt MD [address] [address] [place] [address] Assigned Surgical Provider 07/21/24 Ugo Ochoa MD [address] [place], [place] [address] Assigned Neuroscience Provider 09/20/24 documented as of this encounter
--- OUTSIDE RECORDS SUMMARY | 2024-09-21 22:46 | XMS_ITS | Encounter Summary ---
Author Organization [facility] Address [address] [place] [address] Care Team Providers Care Reed Maker Name Role Phone Sienna Guillermo DO Unavailable [phone] No Ref-Primary, Physician Primary Care Provider Mai UrenaC Unavailable Segundo Mcclelland MD Unavailable [phone] Segundo Mcclelland MD Unavailable +[phone] Qamar Jackson MD Unavailable Segundo Mcclelland MD Primary Care Provider + Amy Montes De Oca RN Unavailable [phone] Gregorio Dalton-C Unavailable +[phone] Kingsley Garcia MD Unavailable + [phone] Segundo Mcclelland MD Unavailable +[phone] Master Shea PA-C Unavailable Allyssa Justice MD Unavailable [phone] Genaro Christian MD Unavailable Master Shea-C Unavailable Sienna Guillermonifer DO Unavailable [phone] Allyssa Justice MD Unavailable [phone] Declan Leavitt MD Unavailable Ugo Ochoa MD Unavailable Encounter Details Date Type Department Care Team (Late st Contact Info) Description 01/17/2023 MyC Medical Advice [facility] [address] [place], [place] [address] [place] [address] [place] [address] Injury of left knee, initial encounter (Primary [...] AM CDT Legal Sex Female 3:29 AM SPECIAL EDUCATION SUPERVISOR Gender Identity Female 05/26/2021 10:37 AM [...] Coronavirus/COVID-19? No / Unsure 01/15/2023 2:18 PM SPECIAL EDUCATION SUPERVISOR documented as of this encounter Miscellaneous Notes * Telephone Encounter - Verito Newberry MD - 01/18/2023 11:42 AM SPECIAL EDUCATION SUPERVISOR Walker order has been signed. Verito John MD, [facility] IAL EDUCATION SUPERVISOR documented in this encounter Plan of Treatment Upcoming Encounters Date Type Department Care Team (Late st Contact Info) Description 02/20/2025 10:20 AM CDT Appointment [facility] Imaging [address] [place] [address] Allyssa Justice MD [facility] [address] [place] [address] 02/27/2025 10:40 AM CDT Virtual Visit [facility] [address], [address] [facility] [place] [phone] Allyssa Justice MD [facility] [address] [place] [address] documented as of this encounter Visit Diagnoses [...] Out COVID-19 11/10/2023 11/10/2023 11/10/2023 7:17 PM SPECIAL EDUCATION SUPERVISOR Rule Out COVID-19 01/18/2024 01/18/2024 01/18/2024 8:53 PM SPECIAL EDUCATION SUPERVISOR Rule Out COVID-19 01/28/2024 01/28/2024 01/28/2024 10:22 PM SPECIAL EDUCATION SUPERVISOR Rule Out COVID-19 02/17/2024 02/17/2024 02/17/2024 5:07 PM CDT Rule Out COVID-19 04/22/2024 04/22/202404/23/2024 12:06 AM CDT Assessment Noted Time PHQ-9 Depression Total Score: 6 01/01/20 9:53 AM SPECIAL EDUCATION SUPERVISOR documented as of this encounter Care Teams Reed Maker Relationship Specialty Start Date End Date No Ref-Primary, Physician PCP - General 11/06/22 04/21/23 [place] [address] [address] [place] [address] PCP - General Family Medicine 04/22/23 Sienna Guillermo DO [address] [place] [address] Assigned Heart and Vascular Provider 09/05/22 03/12/23 Mai Urena PA-C [address] [place] [address] Assigned PCP 10/31/22 01/22/23 [place] [address] [address] [address] Assigned Pain Medication Provider 12/07/22 [place] [address] [address] [address] Assigned PCP 01/23/23 [place] [address] [place] [address] Assigned Musculoskeletal Provider 01/23/23 09/19/24 Amy Montes De Oca, RN Clinic Cleaner And Polisher 05/13/2305/17 Gregorio Dalton PA-C [address] [place] [address] Assigned Surgical Provider 05/22/23 07/20/24 Kingsley Garcia MD [address] [place] [address] Assigned Heart and Vascular Provider 08/07/23 [place] [address] [place] [address] Family Medicine 09/10/23 Master Shea PA-C [address] [place] [address] Physician Director Medicare Sales Gastroenterology 09/10/23 Allyssa Justice MD [facility] [address] [place] [address] Hematology & Oncology 12/10/23 Genaro Christian MD 6 [place], [place] [address] Cardiovascular Disease 12/22/23 Master Shea PA-C [address] [place] [address] Assigned Gastroenterology Provider 12/23/23 Sienna Guillermo DO [address] [place] [address] Physician Cardiovascular Disease 01/18/24 Allyssa Justice MD [facility] [address] [place] [id number] Assigned Cancer Care Provider 03/21/24 Declan Leavitt MD [address] [place] [address] Assigned Surgical Provider 07/21/24 Ugo Ochoa MD [address] [place] [address] Assigned Neuroscience Provider 09/20/24 documented as of this encounter
--- OUTSIDE RECORDS SUMMARY | 2024-09-21 22:46 | XMS_ITS | Encounter Summary ---
Author Organization [facility] Address [address] [place] [address] Care Team Providers Care Litigation Manager Name Role Phone Segundo Mcclelland MD Unavailable [phone] Segundo Mcclelland MD Unavailable [phone] Qamar Jackson MD Unavailable Segundo Mcclelland MD Primary Care Provider + Gregorio Dalton PA-C Unavailable +[phone] Kingsley Gacria MD Unavailable + [phone] Segundo Mcclelland MD Unavailable [phone] Master Shea PA-C Unavailable Allyssa Justice MD Unavailable [phone] Genaro Christian MD Unavailable + [phone] Master Shea PA-C Unavailable Sienna Guillermo DO Unavailable [phone] Allyssa Justice MD Unavailable [phone] Declan Leavitt MD Unavailable Ugo Ochoa MD Unavailable Encounter Details Date Type Department Care Team (Late st Contact Info) Description 05/19/2023 MyC Medical Advice [facility] [place] [address] [facility] [address] [place] [phone] Rita Gordon, [facility] [address] [place] [address] Social History Tobacco Use Types Packs/Day Years Used Date Smoking Tobacco: Never Smokeless Tobacco: Never Alcohol Use Standard Drinks/Week Comments Yes 0 (1 standard drink = 0.6 oz pur e alcohol) occasional PHQ-2 Answer Date Recorded PHQ-2 Score 3 04/05/2023 Comments No Sex and Gender Information Value Date Recorded Sex Assigned at Female 05/26/2021 10:37 AM CDT Legal Sex Female 3:29 AM 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 AND CASHIER Gender Identity Female 05/26/2021 10:37 AM CDT [...] Info) Description 02/20/2025 10:20 AM CDT Appointment [facility] Imaging [address] [facility] [address] [place] [phone] Allyssa Justice MD [facility] [address] [place] [address] 02/27/2025 10:40 AM CDT Virtual Visit [facility] [address] [facility] [place] [phone] Allyssa Jsutice MD [facility] [address] [place] [address] documented as of this encounter Visit Diagnoses Not on filedocumented in this encounter Additional Health Concerns Infection Onset Date Last Indicated Resolved Time Rule Out C-difficile 06/04/2023 06/04/2023 023 11:28 AM CDT Rule Out Eleonora auris 06/04/2023 06/04/202306/07 9:24 AM CDT ESBL 10/23/2023 05/26/2024 Rule Out COVID-19 11/10/2023 11/10/2023 11/10/2023 7:17 PM 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 AND CASHIER Rule Out COVID-19 01/18/2024 01/18/2024 01/18/2024 8:53 PM 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 AND CASHIER Rule Out COVID-19 01/28/2024 01/28/2024 01/28/2024 10:22 PM 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 AND CASHIER Rule Out COVID-19 02/17/2024 02/17/2024 02/17/2024 5:07 PM CDT Rule Out COVID-19 04/22/2024 04/22/2024 04/23/2024 12:06 AM CDT Assessment Noted Time PHQ-9 Depression Total Score: 6 04/05/20 23 8:14 AM CDT documented as of this encounter Care Teams Litigation Manager Relationship Specialty Start [place] [address] [address] [place] [address] PCP - General Family Medicine 04/22/23 [place] [address] [address] [address] Assigned Pain Medication Provider 12/07/22 [place] [address] [address] [address] Assigned PCP 01/23/23 [place] [address] [place] [address] Assigned Musculoskeletal Provider 01/23/23 09/19/24 Gregorio Dalton PA-C [address] [place] [address] Assigned Surgical Provider 05/22/23 07/20/24 Kingsley Garcia MD [address] [place] [address] Assigned Heart and Vascular Provider 08/07/23 [place] [address] [place] [address] Family Medicine 09/10/23 Master Shea PA-C [address] [place] [address] Physician Hotel Attendant Gastroenterology 09/10/23 Allyssa Justice MD [facility] [address] [place] [address] Hematology & Oncology 12/10/23 Genaro Christian MD 6 [place], [place] [address] Cardiovascular Disease 12/22/23 Master Shea PA-C [address] [place] [address] Assigned Gastroenterology Provider 12/23/23 Sienna Guillermo DO [address] [place] [address]288[address] Physician Cardiovascular Disease 01/18/24 Allyssa Justice MD [facility] [address] [place] [address] Assigned Cancer Care Provider 03/21/24 Declan Leavitt MD [address] [place] [address] Assigned Surgical Provider 07/21/24 Ugo Ochoa MD [address] [place], [place] [address] Assigned Neuroscience Provider 09/20/24 documented as of this encounter
--- OUTSIDE RECORDS SUMMARY | 2024-09-21 22:46 | XMS_ITS | Encounter Summary ---
Author Organization [facility] Address [address] [place] [address] Care Team Providers Care Therapist Phys Name Role Phone Sienna Guillermo DO Unavailable [phone] No Ref-Primary, Physician Primary Care Provider Mai UrenaC Unavailable Segundo Mcclelland MD Unavailable [phone] Segundo Mcclelland MD Unavailable [phone] Qamar Jackson MD Unavailable Segundo Mcclelland MD Primary Care Provider + Amy Montes De Oca RN Unavailable [phone] Gregorio Dalton-C Unavailable [phone] Kingsley Garcia MD Unavailable + [phone] Segundo Mcclelland MD Unavailable [phone] Master Shea PA-C Unavailable Allyssa Justice MD Unavailable [phone] Genaro Christian MD Unavailable Master Shea-C Unavailable Sienna Guillermonifer DO Unavailable [phone] Allyssa Justice MD Unavailable [phone] Declan Leavitt MD Unavailable Ugo Ochoa MD Unavailable Reason for Visit * Reason Onset Date Comments Prior Auth - Medication 01/02/2023 Semaglut yury, 1 MG/DOSE, (OZEMPIC) 4 MG/3ML pen - EPA DENIED Encounter Details Date Type Department Care Team (Late st Contact Info) Description 01/02/2023 Telephone [facility] [address] [place] [address] [place] [address] [place] [address] Prior Auth - Medication (Semaglutide, [...] AM CDT Legal Sex Female 3:29 AM CANE WEIGHER Gender Identity Female 05/26/2021 10:37 AM CDT [...] Coronavirus/COVID-19? No / Unsure 01/04/2023 3:15 PM CANE WEIGHER documented as of this encounter Miscellaneous Notes * Telephone Encounter - Zac Schaffer - 01/02/2023 10:51 AM CST Images from the original note were not included. Central Prior Authorization Team PRIOR AUTHORIZATION DENIED Medication: Semaglutide, 1 MG/DOSE, (OZEMPIC) 4 MG/3ML pen - EPA DENIED Denial Date: 01/01/2023 Denial Rational: Appeal Information: WEIGHER documented in this encounter Plan of Treatment Upcoming Encounters Date Type Department Care Team (Late st Contact Info) Description 02/20/2025 10:20 AM CDT Appointment [facility] Imaging [address] [place] [address] [place] [phone] Allyssa Justice MD [facility] [address] [place] [address] 02/27/2025 10:40 AM CDT Virtual Visit [facility] [address] [facility]tr [place] [phone] Allyssa Justice MD [facility] [address] [place] [address] documented as of this encounter Visit Diagnoses Not on filedocumented in this encounter Additional Health Concerns Infection Onset Date Last Indicated Resolved Time Rule Out COVID-19 01/04/2023 01/04/2023 01/04/2023 8:32 PM CANE WEIGHER Rule Out C-difficile 01/04/2023 01/04/2023 023 1:46 AM CANE WEIGHER Rule Out C-difficile 01/07/2023 01/07/2023 023 8:18 PM CANE WEIGHER Rule Out C-difficile 06/04/2023 06/04/2023 023 11:28 AM CDT Rule Out Eleonora auris 06/04/2023 06/04/202306/07 9:24 AM CDT ESBL 10/23/2023 05/26/2024 Rule Out COVID-19 11/10/2023 11/10/2023 11/10/2023 7:17 PM CANE WEIGHER Rule Out COVID-19 01/18/2024 01/18/2024 01/18/2024 8:53 PM CANE WEIGHER Rule Out COVID-19 01/28/2024 01/28/2024 01/28/2024 10:22 PM CANE WEIGHER Rule Out COVID-19 02/17/2024 02/17/2024 02/17/2024 5:07 PM CDT Rule Out COVID-19 04/22/2024 04/22/2024 04/23/2024 12:06 AM CDT Assessment Noted Time PHQ-9 Depression Total Score: 6 01/01/20 9:53 AM CANE WEIGHER documented as of this encounter Care Teams Therapist Phys Relationship Specialty Start Date End Date No Ref-Primary, Physician PCP - General 11/06/22 04/21/23 [place] [address] [address] [place] [address] PCP - General Family Medicine 04/22/23 Sienna Guillermo DO [address] [place] [address] Assigned Heart and Vascular Provider 09/05/22 03/12/23 Mai Uerna, [place] [address] [address] [place] [address] Assigned PCP 10/31/22 01/22/23 [place] [address] [address] [address] Assigned Pain Medication Provider 12/07/22 [place] [address] [address] [address] Assigned PCP 01/23/23 [place] [address] [place] [address] Assigned Musculoskeletal Provider 01/23/23 09/19/24 Amy Montes De Oca, RN Clinic Dry Goods Inspector 05/13/2305/17 Gregorio Dalton PA-C [address] [address] Assigned Surgical Provider 05/22/23 07/20/24 Kingsley Garcia MD [address] [place] [address] Assigned Heart and Vascular Provider 08/07/23 [place] [address] [place] [address] Family Medicine 09/10/23 Master Shea PA-C [address] [place] [address] Physician Pulp Drier Firer Gastroenterology 09/10/23 Allyssa Justice MD [facility] [address] [place] [address] Hematology & Oncology 12/10/23 Genaro Christian MD 6 [place], [place] [address] Cardiovascular Disease 12/22/23 Master Shea PA-C [address] [place] [address] Assigned Gastroenterology Provider 12/23/23 Sienna Guillermo DO [address] [place] [address] Physician Cardiovascular Disease 01/18/24 Allyssa Justice MD [facility] [address] [place] [address] Assigned Cancer Care Provider 03/21/24 Declan Leavitt MD [address] [place] [address]284[address] Assigned Surgical Provider 07/21/24 Ugo Ochoa MD [address] [place], [place] [address] Assigned Neuroscience Provider 09/20/24 documented as of this encounter
--- OUTSIDE RECORDS SUMMARY | 2024-09-21 22:46 | XMS_ITS | Encounter Summary ---
Author Organization [facility] Address [address] [place] [address] Care Team Providers Care Loss Mitigation Specialist Name Role Phone Segundo Mcclelland MD Unavailable [phone] Segundo Mcclelland MD Unavailable +[phone] Qamar Jackson MD Unavailable Segundo Mcclelland MD Primary Care Provider + Gregorio Dalton PA-C Unavailable +[phone] Kingsley Garcia MD Unavailable + [phone] Segundo Mcclelland MD Unavailable [phone] Master Shea PA-C Unavailable Allyssa Justice MD Unavailable [phone] Genaro Christian MD Unavailable + [phone] Master Shea PA-C Unavailable Sienna Guillermo DO Unavailable +[phone] Allyssa Justice MD Unavailable [phone] Declan Leavitt MD Unavailable Ugo Ochoa MD Unavailable Encounter Details Date Type Department Care Team (Late st Contact Info) Description 05/31/2023 MyC Medical Advice [facility] [address] [place] [address] [place] [address] [place] [address] Social History Tobacco Use Types [...] AM CDT 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 Routed to PCP, Please review and advise if anything can be done before 06/09 procedure. Thank you, Miguel López RN documented in this encounter Plan of Treatment Upcoming Encounters Date Type Department Care Team (Late Contact Info) Description 02/20/2025 10:20 AM CDT Appointment [facility] Imaging [address] [facility] [address] [place] [address] Allyssa Justice MD [address] [place] [address] 02/27/2025 10:40 AM CDT Virtual Visit [facility] [address] [facility] Medical Ctr [place] [phone] Allyssa Justice MD [facility] [address] [place] [address] documented as of this encounter Visit Diagnoses Not on filedocumented in this encounter Additional Health Concerns Infection Onset Date Last Indicated Resolved Time Rule Out C-difficile 06/04/2023 06/04/2023 023 11:28 AM CDT Rule Out Eleonora auris 06/04/2023 06/04/202306/07 9:24 AM CDT ESBL 10/23/2023 05/26/2024 Rule Out COVID-19 11/10/2023 11/10/2023 11/10/2023 7:17 PM RACK CARRIER Rule Out COVID-19 01/18/2024 01/18/2024 01/18/2024 8:53 PM RACK CARRIER Rule Out COVID-19 01/28/2024 01/28/2024 01/28/2024 10:22 PM RACK CARRIER Rule Out COVID-19 02/17/2024 02/17/2024 02/17/2024 5:07 PM CDT Rule Out COVID-19 04/22/2024 04/22/2024 04/23/2024 12:06 AM CDT Assessment Noted Time PHQ-9 Depression Total Score: 3 05/27/20 23 5:00 PM CDT documented as of this encounter Care Teams Loss Mitigation Specialist Relationship Specialty Start [place] [address] [address] [address] PCP - General Family Medicine 04/22/23 [place] [address] [place] [address] Assigned Pain Medication Provider 12/07/22 [place] [address] [place] [address] Assigned PCP 01/23/23 [place] [address] [place] [address] Assigned Musculoskeletal Provider 01/23/23 09/19/24 Gregorio Dalton PA-C [address] [place] [address] Assigned Surgical Provider 05/22/23 07/20/24 Kingsley Garcia MD [address] [place] [address] Assigned Heart and Vascular Provider 08/07/23 [place] [address] [place] [address] Family Medicine 09/10/23 Master Shea PA-C [address] [place] [address] Physician Looping Inspector Gastroenterology 09/10/23 Allyssa Justice MD [facility] [address] [place] [address] Hematology & Oncology 12/10/23 Genaro Christian MD [address] [place] [address] Cardiovascular Disease 12/22/23 Master Shea PA-C [address] [place] [address] Assigned Gastroenterology Provider 12/23/23 Sienna Guillermo DO [address] [place] [address] Physician Cardiovascular Disease 01/18/24 Allyssa Justice MD [facility] [address] [place] [address] Assigned Cancer Care Provider 03/21/24 Declan Leavitt MD [address] [place] [address] [place] [address] Assigned Surgical Provider 07/21/24 Ugo Ochoa MD [address] [place], [place] [address] Assigned Neuroscience Provider 09/20/24 documented as of this encounter
--- OUTSIDE RECORDS SUMMARY | 2024-09-21 22:46 | XMS_ITS | Encounter Summary ---
Author Organization [place] Address [address] [place] [address] Care Team Providers Care Popped Corn Oven Attendant Name Role Phone Sienna Guillermo DO Unavailable [phone] No Ref-Primary, Physician Primary Care Provider Mai UrenaC Unavailable [phone] Segundo Mcclelland MD Unavailable +[phone] Segundo Mcclelland MD Unavailable +[phone] Qamar Jackson MD Unavailable Segundo Mcclelland MD Primary Care Provider + Amy Montes De Oca RN Unavailable +[phone] Gregorio Dalton-C Unavailable +[phone] Kingsley Garcia MD Unavailable + [phone] Segundo Mcclelland MD Unavailable +[phone] Master Shea PA-C Unavailable Allyssa Justice MD Unavailable [phone] Genaro Christian MD Unavailable Master Shea-C Unavailable Sienna Guillermonifer Unavailable [phone] Allyssa Justice MD Unavailable [phone] Declan Leavitt MD Unavailable Ugo Ochoa MD Unavailable Reason for Visit * Reason Onset Date Comments Refill Request 11/23/2022 Encounter Details Date Type Department Care Team (Late st Contact Info) Description 11/23/2022 MyC Refill [facility] [address] [place] [address] [place] [address] [place] [address] Refill Request Social History Tobacco [...] AM CDT Legal Sex Female 3:29 AM WAREHOUSE LOGISTICS COORDINATOR Gender Identity Female 05/26/2021 10:37 AM [...] Miguel López RN - 11/24/2022 1:59 PM WAREHOUSE LOGISTICS COORDINATOR Duplicate. Miguel López RN on 11/24/2022 at 1:59 PM HOUSE LOGISTICS COORDINATOR documented in this encounter Plan of Treatment Upcoming Encounters Date Type Department Care Team (Late st Contact Info) Description 02/20/2025 10:20 AM CDT Appointment [facility] [address] [place] [address] [place] [phone] Allyssa Justice MD [facility] [address] [place] [address] [place] [address] 02/27/2025 10:40 AM CDT Virtual Visit [facility] [address], [address] [facility] [place] [phone] Allyssa Justice MD [facility] [address] [place] [address] [place] [place] [address]60[address] documented as of this encounter Visit Diagnoses Diagnosis Dental infection Acute apical periodontitis of pulpal origin documented in this encounter Additional Health Concerns Infection Onset Date Last Indicated Resolved Time Rule Out COVID-19 01/04/2023 01/04/2023 01/04/2023 8:32 PM WAREHOUSE LOGISTICS COORDINATOR Rule Out C-difficile 01/04/2023 01/04/2023 023 1:46 AM WAREHOUSE LOGISTICS COORDINATOR Rule Out C-difficile 01/07/2023 01/07/2023 023 8:18 PM WAREHOUSE LOGISTICS COORDINATOR Rule Out C-difficile 06/04/2023 06/04/2023 023 11:28 AM CDT Rule Out Eleonora auris 06/04/2023 06/04/202306/07 9:24 AM CDT ESBL 10/23/2023 05/26/2024 Rule Out COVID-19 11/10/2023 11/10/2023 11/10/2023 7:17 PM WAREHOUSE LOGISTICS COORDINATOR Rule Out COVID-19 01/18/2024 01/18/2024 01/18/2024 8:53 PM WAREHOUSE LOGISTICS COORDINATOR Rule Out COVID-19 01/28/2024 01/28/2024 01/28/2024 10:22 PM WAREHOUSE LOGISTICS COORDINATOR Rule Out COVID-19 02/17/2024 02/17/2024 02/17/2024 5:07 PM CDT Rule Out COVID-19 04/22/2024 04/22/2024 04/23/2024 12:06 AM CDT Assessment Noted Time PHQ-9 Depression Total Score: 7 05/19/20 22 10:06 AM CDT documented as of this encounter Care Teams Popped Corn Oven Attendant Relationship Specialty Start Date End Date No Ref-Primary, Physician PCP - General 11/06/22 04/21/23 [place] [address] [place] [address] PCP - General Family Medicine 04/22/23 Sienna Guillermo DO [address] [place] [address] Assigned Heart and Vascular Provider 09/05/22 03/12/23 Mai Urena PA-C [address] [place], [place] 395033 Assigned PCP 10/31/22 01/22/23 [place] [address] [address] [address] Assigned Pain Medication Provider 12/07/22 [place] [address] [address] [address] Assigned PCP 01/23/23 [place] [address] [place] [address] Assigned Musculoskeletal Provider 01/23/23 09/19/24 Amy Montes De Oca, RN Clinic Lunchroom Mother 05/13/2305/17 Gregorio Dalton PA-C [address] [place] [address] Assigned Surgical Provider 05/22/23 07/20/24 Kingsley Garcia MD [address] [place] [address] Assigned Heart and Vascular Provider 08/07/23 [place] [address] [place] [address] Family Medicine 09/10/23 Master Shea PA-C [address] [place] [place] [address] Physician Grave Cleaner Gastroenterology 09/10/23 Allyssa Justice MD [facility] [address] [place] 99[address] Hematology & Oncology 12/10/23 Genaro Christian MD 6 [place], [place] 9367[address] Cardiovascular Disease 12/22/23 Master Shea PA-C [address] [place] [address] Assigned Gastroenterology Provider 12/23/23 Sienna Guillermo DO [address] [place] [address] Physician Cardiovascular Disease 01/18/24 Allyssa Justice MD [facility] [place] [address] [place] [address] [place] 670255 Assigned Cancer Care Provider 03/21/24 Declan Leavitt MD [address] [place] [address]13[address] Assigned Surgical Provider 07/21/24 Ugo Ochoa MD 500 [place], [place] [address] Assigned Neuroscience Provider 09/20/24 documented as of this encounter
--- OUTSIDE RECORDS SUMMARY | 2024-09-21 22:46 | XMS_ITS | Encounter Summary ---
Author Organization [place] Address [address] [place] [address] Care Team Providers Care Viticulturist Name Role Phone Segundo Mcclelland MD Unavailable [phone] Segundo Mcclelland MD Unavailable + [phone] Qamar Jackson MD Unavailable Segundo Mcclelland MD Primary Care Provider + Amy Montes De Oca RN Unavailable +[phone] Gregorio Dalton-C Unavailable +[phone] Kingsley Garcia MD Unavailable + [phone] Segundo Mcclelland MD Unavailable + [address] Master Shea PA-C Unavailable Allyssa Justice MD Unavailable [phone] Genaro Christian MD Unavailable [phone] Master Shea PA-C Unavailable Sienna Guillermo DO Unavailable +[phone] Allyssa Justice MD Unavailable [phone] Declan Leavitt MD Unavailable Ugo Ochoa MD Unavailable Encounter Details Date Type Department Care Team (Late st Contact Info) Description 05/13/2023 MyC Medical Advice [facility] [address] [place] [address] [place] [address] [place] [address] Social History Tobacco Use Types [...] AM CDT Legal Sex Female 3:29 AM SOCIAL MEDIA CAMPAIGN MANAGER Gender Identity Female 05/26/2021 10:37 AM [...] a video visit tomorrow, 05/13. Heidi Gan Brand Specialist * Telephone Encounter - Segundo Mcclelland MD - 05/13/2023 2:49 PM CDT OK to use KIMO, OK to have video * Telephone Encounter - Heidi Gan - 05/13/2023 1:20 PM CDT Ok to use KIMO or Same Day tomorrow? Heidi Gan Brand Specialist * Telephone Encounter - Nimo Alicia, RN - 05/13/2023 1:16 PM CDT Patient needs hospital follow up visit veronica. Preferably tomorrow. Routing to TC Team to call patient veronica to get an appointment. documented in this encounter Plan of Treatment Upcoming Encounters Date Type Department Care Team (Late st Contact Info) Description 02/20/2025 10:20 AM CDT Appointment [facility] [address] [place] [address] [place] [address] Allyssa Justice MD [facility] [address] [place] [address] 02/27/2025 10:40 AM CDT Virtual Visit [facility] [address] [facility] Medical Ctr [place] [phone] Allyssa Justice MD [facility] [address] [place] [address] documented as of this encounter Visit Diagnoses Not on filedocumented in this encounter Additional Health Concerns Infection Onset Date Last Indicated Resolved Time Rule Out C-difficile 06/04/2023 06/04/2023 023 11:28 AM CDT Rule Out Eleonora auris 06/04/2023 06/04/202306/07 9:24 AM CDT ESBL 10/23/2023 05/26/2024 Rule Out COVID-19 11/10/2023 11/10/2023 11/10/2023 7:17 PM SOCIAL MEDIA CAMPAIGN MANAGER Rule Out COVID-19 01/18/2024 01/18/2024 01/18/2024 8:53 PM SOCIAL MEDIA CAMPAIGN MANAGER Rule Out COVID-19 01/28/2024 01/28/2024 01/28/2024 10:22 PM SOCIAL MEDIA CAMPAIGN MANAGER Rule Out COVID-19 02/17/2024 02/17/2024 02/17/2024 5:07 PM CDT Rule Out COVID-19 04/22/2024 04/22/2024 04/23/2024 12:06 AM CDT Assessment Noted Time PHQ-9 Depression Total Score: 6 04/05/20 8:14 AM CDT documented as of this encounter Care Teams Viticulturist Relationship Specialty Start [place] [address] [place] [address] PCP - General Family Medicine 04/22/23 [place] [address] [place] [address] Assigned Pain Medication Provider 12/07/22 [place] [address] [address] [address] Assigned PCP 01/23/23 [place] [address] [address] [place] [place] [address] Assigned Musculoskeletal Provider 01/23/23 09/19/24 Amy Montes De Oca, RN Clinic Binder Lockstitch 05/13/2305/17 Gregorio Dalton PA-C [address] [address] Assigned Surgical Provider 05/22/23 07/20/24 Kingsley Garcia MD [address] [place] [address] Assigned Heart and Vascular Provider 08/07/23 [place] [address] [place] [address] Family Medicine 09/10/23 Master Shea PA-C [address] [place] [address] Physician Is Analyst Gastroenterology 09/10/23 Allyssa Justice MD [facility] [address] [place] [address] [place] [address] Hematology & Oncology 12/10/23 Genaro Christian MD 6 [place], [place] [address] MD Cardiovascular Disease 12/22/23 Master Shea PA-C [address] [place] [address] Assigned Gastroenterology Provider 12/23/23 Sienna Guillermo DO [address] [place] [address] Physician Cardiovascular Disease 01/18/24 Allyssa Justice MD [facility] [address] [place] [address] [place] [address] Assigned Cancer Care Provider 03/21/24 Declan Leavitt MD [address] [facility] [address] [place] [address] Assigned Surgical Provider 07/21/24 Ugo Ochoa MD 500 [place], [place] [address]255 Assigned Neuroscience Provider 09/20/24 documented as of this encounter
--- OUTSIDE RECORDS SUMMARY | 2024-09-21 22:46 | XMS_ITS | Encounter Summary ---
Author Organization [place] Address [address] [place] [address] Care Team Providers Care Cnc Manager Name Role Phone Sienna Guillermo DO Unavailable [phone] No Ref-Primary, Physician Primary Care Provider Segundo Mcclelland MD Unavailable [phone] Segundo Mcclelland MD Unavailable [phone] Qamar Jackson MD Unavailable Segundo Mcclelland MD Primary Care Provider + Amy Montes De Oca RN Unavailable +[phone] Gregorio Dalton-C Unavailable +[phone] Kingsley Garcia MD Unavailable + [phone] Segundo Mcclelland MD Unavailable +[phone] Master Shea PA-C Unavailable Allyssa Justice MD Unavailable [phone] Genaro Christian MD Unavailable [phone] Master Shea-C Unavailable Sienna Guillermo DO Unavailable +[phone] Allyssa Justice MD Unavailable [phone] Declan Leavitt MD Unavailable Ugo Ochoa MD Unavailable Encounter Details Date Type Department Care Team (Late st Contact Info) Description 02/26/2023 MyC Medical Advice [facility] [place] [address] [facility] [address] [place], [place] [address] [place] [address] [facility] [address] [place], [place] [address] Social History Tobacco Use Types Packs/Day Years Used Date Smoking Tobacco: Never Smokeless Tobacco: Never Alcohol Use Standard Drinks/Week Comments Yes 0 (1 standard drink = 0.6 oz pur e alcohol) occasional PHQ-2 Answer Date Recorded PHQ-2 Score 1 01/01/2023 Comments No Sex and Gender Information Value Date Recorded Sex Assigned at Female 05/26/2021 10:37 AM CDT Legal Sex Female 3:29 AM DRY SANDER Gender Identity Female 05/26/2021 10:37 AM CDT [...] AM CDT Appointment [facility] [address] [facility] [address] [place] [address] Allyssa Justice MD [facility] [address] [place], [place] [address] 02/27/2025 10:40 AM CDT Virtual Visit [facility] [address] [facility] Medical Ctr [place] [phone] Allyssa Justice MD [facility] [address] [place] [address] documented as of this encounter Visit Diagnoses Not on filedocumented in this encounter Additional Health Concerns Infection Onset Date Last Indicated Resolved Time Rule Out C-difficile 06/04/2023 06/04/2023 023 11:28 AM CDT Rule Out Eleonora auris 06/04/2023 06/04/202306/07 9:24 AM CDT ESBL 10/23/2023 05/26/2024 Rule Out COVID-19 11/10/2023 11/10/2023 11/10/2023 7:17 PM DRY SANDER Rule Out COVID-19 01/18/2024 01/18/2024 01/18/2024 8:53 PM DRY SANDER Rule Out COVID-19 01/28/2024 01/28/2024 01/28/2024 10:22 PM DRY SANDER Rule Out COVID-19 02/17/2024 02/17/2024 02/17/2024 5:07 PM CDT Rule Out COVID-19 04/22/2024 04/22/2024 04/23/2024 12:06 AM CDT Assessment Noted Time PHQ-9 Depression Total Score: 6 01/01/20 9:53 AM DRY SANDER documented as of this encounter Care Teams Cnc Manager Relationship Specialty Start Date End Date No Ref-Primary, Physician PCP - General 11/06/22 04/21/23 [place] [address] [address] [address] PCP - General Family Medicine 04/22/23 Sienna Guillermo DO [address] [place] [address] Assigned Heart and Vascular Provider 09/05/22 03/12/23 [place] [address] [place] [address] Assigned Pain Medication Provider 12/07/22 [place] [address] [address] [address] Assigned PCP 01/23/23 [place] [address] [place] [address] Assigned Musculoskeletal Provider 01/23/23 09/19/24 Amy Montes De Oca RN Clinic Recreation Attendant 05/13/2305/17 Gregorio Dalton PA-C [address] [address] Assigned Surgical Provider 05/22/23 07/20/24 Kingsley Garcia MD [address] [place] [address] Assigned Heart and Vascular Provider 08/07/23 [place] [address] [address] [address] Family Medicine 09/10/23 Master Shea PA-C [address] [place] [address] Physician Trimming Machine Set Up Operator Gastroenterology 09/10/23 Allyssa Justice MD [facility] [address] [place] [address] Hematology & Oncology 12/10/23 Genaro Christian MD 6 [place], [place] [address] Cardiovascular Disease 12/22/23 Master Shea PA-C [address] [facility] [place] [address] Assigned Gastroenterology Provider 12/23/23 Sienna Guillermo DO [address] [place] [address] Physician Cardiovascular Disease 01/18/24 Allyssa Justice MD [facility] [address] [place] [address] Assigned Cancer Care Provider 03/21/24 Declan Leavitt MD [address] [place] [address] [place] [address] Assigned Surgical Provider 07/21/24 Ugo Ochoa MD [address] [place] [address]75[address] Assigned Neuroscience Provider 09/20/24 documented as of this encounter
--- OUTSIDE RECORDS SUMMARY | 2024-09-21 22:47 | XMS_ITS | Encounter Summary ---
Author Organization [place] Address [address] [place] [address] Care Team Providers Care Teletype Technician Name Role Phone Segundo Mcclelland MD Unavailable [phone] Segundo Mcclelland MD Primary Care Provider + Sienna Guillermo DO Unavailable [phone] Sandy Cox APRN UNIX ANALYST Unavailable + Segundo Mcclelland MD Unavailable + [phone] Sienna Guillermo DO Unavailable [phone] Malia Dhillon MD Primary Care Provider [phone] No Ref-Primary, Physician Primary Care Provider Mai Urena PA-C Unavailable + [phone] Segundo Mcclelland MD Unavailable + [phone] Segundo Mcclelland MD Unavailable + [phone] Qamar Jackson MD Unavailable Segundo Mcclelland MD Primary Care Provider + Amy Montes De Oca RN Unavailable +[phone] Gregorio Dalton PA-C Unavailable [phone] Kingsley Garcia MD Unavailable + [phone] Segundo Mcclelland MD Unavailable +[phone] Master Shea PA-C Unavailable Allyssa Justice MD Unavailable [phone] Genaro Christian MD Unavailable [phone] Master Shea PA-C Unavailable Sienna Guillermo Unavailable +[phone] Allyssa Justice MD Unavailable [phone] Declan Leavitt MD Unavailable Ugo Ochoa MD Unavailable Encounter Details Date Type Department Care Team (Late st Contact Info) Description 09/17/2021 [facility] [address] [address] Amy James, RN Social History Tobacco Use Types Packs/Day Years Used Date Smoking Tobacco: Never Smokeless Tobacco: Never Alcohol Use Standard Drinks/Week Comments Yes 0 (1 standard drink = 0.6 oz pur e alcohol) occasional PHQ-2 Answer Date Recorded PHQ-2 Score 1 12/06/2018 Comments No Sex and Gender Information Value Date Recorded Sex Assigned at Female 05/26/2021 10:37 AM CDT Legal Sex Female 3:29 AM FULL STACK NET DEVELOPER Gender Identity Female 05/26/2021 10:37 AM CDT [...] 02/20/2025 10:20 AM CDT Appointment [facility] [address] [place] [address] [place] [phone] Allyssa Justice MD [facility] [address] [place] [address] 02/27/2025 10:40 AM CDT Virtual Visit [facility] [place] [address] [place] [address] [facility] Medical Ctr [place] [phone] Allyssa Justice MD [facility] [address] [place] [address] documented as of this encounter Visit Diagnoses Not on filedocumented in this encounter Additional Health Concerns Infection Onset Date Last Indicated Resolved Time Rule Out COVID-19 10/27/2022 10/27/2022 10/27/2022 3:19 AM FULL STACK NET DEVELOPER Influenza 10/27/2022 10/27/2022 11/03/2022 11:4 0 PM FULL STACK NET DEVELOPER Rule Out COVID-19 01/04/2023 01/04/2023 01/04/2023 8:32 PM FULL STACK NET DEVELOPER Rule Out C-difficile 01/04/2023 01/04/2023 023 1:46 AM FULL STACK NET DEVELOPER Rule Out C-difficile 01/07/2023 01/07/2023 023 8:18 PM FULL STACK NET DEVELOPER Rule Out C-difficile 06/04/2023 06/04/2023 023 11:28 AM CDT Rule Out Eleonora auris 06/04/2023 06/04/202306/07 9:24 AM CDT ESBL 10/23/2023 05/26/2024 Rule Out COVID-19 11/10/2023 11/10/2023 11/10/2023 7:17 PM FULL STACK NET DEVELOPER Rule Out COVID-19 01/18/2024 01/18/2024 01/18/2024 8:53 PM FULL STACK NET DEVELOPER Rule Out COVID-19 01/28/2024 01/28/2024 01/28/2024 10:22 PM FULL STACK NET DEVELOPER Rule Out COVID-19 02/17/2024 02/17/2024 02/17/2024 5:07 PM CDT Rule Out COVID-19 04/22/2024 04/22/2024 04/23/2024 12:06 AM CDT Assessment Noted Time PHQ-9 Depression Total Score: 1 08/16/20 18 4:58 PM CDT documented as of this encounter Care Teams Teletype Technician Relationship Specialty Start [place] [address] [place] [address] PCP - General Family Medicine 08/17/21 10/26/22 [place] [address] [place] [address] PCP - General Family Medicine 10/27/22 10/27/22 No Ref-Primary, Physician PCP - General 11/06/22 04/21/23 [place] [address] [place] [address] PCP - General Family Medicine 04/22/23 [place] [address] [place] [address] Assigned PCP 05/04/21 01/17/22 Sienna Guillermo DO [address] [facility] [address] [place] [address] Assigned Heart and Vascular Provider 09/21/21 10/04/21 Sandy Cox APRN UNIX ANALYST [address] [place] [address] Assigned Heart and Vascular Provider 10/05/21 09/04/22 [place] [address] [place] [address] Assigned PCP 01/18/22 10/30/22 Sienna Guillermo DO [address] [place] [address] Assigned Heart and Vascular Provider 09/05/22 03/12/23 Mai Urena PA-C [address] [place] [address] Assigned PCP 10/31/22 01/22/23 [place] [address] [place] [address] Assigned Pain Medication Provider 12/07/22 [place] [address] [place] [address] Assigned PCP 01/23/23 [place] [address] [place] [address] Assigned Musculoskeletal Provider 01/23/23 09/19/24 Amy Montes De Oca, RN Clinic Arcade Technician 05/13/2305/17 Gregorio Dalton PA-C [address] [place] [address] Assigned Surgical Provider 05/22/23 07/20/24 Kingsley Garcia MD [address] [place] [address] Assigned Heart and Vascular Provider 08/07/23 [place] [address] [place] [address] Family Medicine 09/10/23 Master Shea PA-C [address] [place] [address] Physician Supervisor Paint Roller Covers Gastroenterology 09/10/23 Allyssa Justice MD [facility] [address] [place] [address] Hematology & Oncology 12/10/23 Genaro Christian MD [address] [place] [address] Cardiovascular Disease 12/22/23 Master Shea PA-C [address] [place] [address] Assigned Gastroenterology Provider 12/23/23 Sienna Guillermo DO [address] [place] [address] Physician Cardiovascular Disease 01/18/24 Allyssa Justice MD [facility] [address] [place] [address] Assigned Cancer Care Provider 03/21/24 Declan Leavitt MD [address] [place] [address] Assigned Surgical Provider 07/21/24 Ugo Ochoa MD 500 [place] [address] Assigned Neuroscience Provider 09/20/24 documented as of this encounter
--- OUTSIDE RECORDS SUMMARY | 2024-09-21 22:47 | XMS_ITS | Encounter Summary ---
Author Organization [facility] Address [address] [place] [address] Care Team Providers Care Carpet Layer Helper Name Role Phone Taylor Cardozo [facility] Primary Care Provider None Primary Care Provider [facility] Jennifre Montejo MD Primary Care Provider [phone] Nimo Wetzel MD Primary Care Provider + Kin Waite MD Primary Care Provider [phone] [facility] Primary Care Prov ider Uyen Palm MD Primary Care Provider [phone] Mialdy Oakes MD Primary Care Provider + [facility] Primary Care Provider [facility] Primary Care Pro vider No Ref-Primary, Physician Primary Care Provider [facility] Care Provide r Villa Santamaria PA-C Unavailable + Villa Santamaria PA-C Unavailable + Segundo Mcclelland MD Unavailable + Segundo Mcclelland MD Unavailable + No Ref-Primary, Physician Primary Care Provider [facility] Primary Care Provide r Villa SantamariaC Unavailable +[phone] Segundo Mcclelland MD Unavailable + Segundo Mcclelland MD Primary Care Provider + Sienna Guillermo DO Unavailable + Sandy Cox APRN MINCEMEAT MAKER Unavailable + Segundo Mcclelland MD Unavailable + Sienna Guillermo DO Unavailable +[phone] Malia Dhillon MD Primary Care Provider [phone] No Ref-Primary, Physician Primary Care Provider Mai UrenaC Unavailable [phone] Segundo Mcclelland MD Unavailable + Segundo Mcclelland MD Unavailable + Qamar Jackson MD Unavailable Segundo Mcclelland MD Primary Care Provider + Amy Montes De Oca RN Unavailable +[phone] Gregorio Dalton-C Unavailable + [phone] Kingsley Garcia MD Unavailable +[phone] Segundo Mcclelland MD Unavailable + Master Shea PA-C Unavailable Allyssa Justice MD Unavailable +[phone] Genaro Christian MD Unavailable [phone] Master Shea-C Unavailable Sienna Guillermo Unavailable [phone] Allyssa Justice MD Unavailable [phone] Declan Leavitt MD Unavailable Ugo Ochoa MD Unavailable Reason for Visit * Reason Onset Date Comments Refill Request 03/15/2009 FLEXERIL & PERCO CET Encounter Details Date Type Department Care Team (Late st Contact Info) Description 03/15/2009 Refill [facility] [address] [facility] [place] [phone] Huan Knox MD [address] [facility] [place] [id number] Refill Request (FLEXERIL & PERCOCET) Social History Tobacco Use Types Packs/Day Years Used Date Smoking Tobacco: Never Alcohol Use Standard Drinks/Week Comments No 0 (1 standard drink = 0.6 oz pur e alcohol) not while Comments No Sex and Gender Information Value Date Recorded Sex Assigned at Female 05/26/2021 10:37 AM CDT Legal Sex Female 3:29 AM TRAIL CONSTRUCTION WORKER Gender Identity Female 05/26/2021 10:37 AM [...] AND WE WILL CALL WHEN READY JEOVANNY DOMINGUEZ-SKY LINE YARDER PT HAS UPCOMING APPT WITH DR KNOX TO DISCUSS CURRENT ISSUES documented in this encounter Plan of Treatment Upcoming Encounters Date Type Department Care Team (Late st Contact Info) Description 02/20/2025 10:20 AM CDT Appointment [facility] [address] [place] [address] Allyssa Justice MD [facility] [address] [address] [place] [address] 02/27/2025 10:40 AM CDT Virtual Visit [place] [address] [address], [address] [facility] Medical Ctr [place] [phone] Allyssa Justice MD [facility] [address] [place] [address]67[address] documented as of this encounter Visit Diagnoses Diagnosis Lumbar back pain- Primary Lumbago documented in this encounter Additional Health Concerns Infection Onset Date Last Indicated Resolved Time Rule Out COVID-19 02/29/2020 02/29/2020 03/01/2020 9:51 PM CDT Rule Out COVID-19 05/05/2020 05/05/2020 05/06/2020 2:19 AM CDT Rule Out COVID-19 08/20/2020 08/20/2020 08/21/2020 10:31 PM CDT Rule Out COVID-19 10/27/2020 10/27/2020 11/17/2020 11:39 PM TRAIL CONSTRUCTION WORKER Rule Out COVID-19 12/23/2020 12/24/2020 12/24/2020 2:08 AM TRAIL CONSTRUCTION WORKER Rule Out COVID-19 01/24/2021 01/24/2021 01/24/2021 9:18 PM TRAIL CONSTRUCTION WORKER Rule Out COVID-19 10/27/2022 10/27/2022 10/27/2022 3:19 AM TRAIL CONSTRUCTION WORKER Influenza 10/27/2022 10/27/2022 11/03/2022 11:4 0 PM TRAIL CONSTRUCTION WORKER Rule Out COVID-19 01/04/2023 01/04/2023 01/04/2023 8:32 PM TRAIL CONSTRUCTION WORKER Rule Out C-difficile 01/04/2023 01/04/2023 023 1:46 AM TRAIL CONSTRUCTION WORKER Rule Out C-difficile 01/07/2023 01/07/2023 023 8:18 PM TRAIL CONSTRUCTION WORKER Rule Out C-difficile 06/04/2023 06/04/2023 023 11:28 AM CDT Rule Out Eleonora auris 06/04/2023 06/04/202306/07 9:24 AM CDT ESBL 10/23/2023 05/26/2024 Rule Out COVID-19 11/10/2023 11/10/2023 11/10/2023 7:17 PM TRAIL CONSTRUCTION WORKER Rule Out COVID-19 01/18/2024 01/18/2024 01/18/2024 8:53 PM TRAIL CONSTRUCTION WORKER Rule Out COVID-19 01/28/2024 01/28/2024 01/28/2024 10:22 PM TRAIL CONSTRUCTION WORKER Rule Out COVID-19 02/17/2024 02/17/2024 02/17/2024 5:07 PM CDT Rule Out COVID-19 04/22/2024 04/22/2024 04/23/2024 12:06 AM CDT documented as of this encounter Care Teams Carpet Layer Helper Relationship Specialty Start Date End Date Taylor Cardozo APRN MINCEMEAT MAKER [address] [place] [address] PCP - General 01/11/04 09/22/10 None PCP - General 09/23/10 09/02/11 Jennifer Escobedo MD [address] [place] [address] PCP - General women's lacrosse coach 09/03/11 11/01/11 Nimo Wetzel MD [address] [place] [address] PCP - General 11/02/11 04/17/12 Kin Waite MD [address] [facility] 100 [place] [address] PCP - General women's lacrosse coach 04/18/12 11/22/12 Practice, [address] [place] [phone] PCP - General 11/23/12 11/25/13 Uyen Palm MD [address] [place] [address] 400 [place] [address] PCP - General women's lacrosse coach 11/26/13 09/02/14 Milady Oakes MD [place] [id number] [place] [address] PCP - General Family Practice 09/03/14 09/20/15 [facility] [address] [place] [address] PCP - General 09/21/15 07/10/17 [facility] [address] [place] [address] PCP - General 07/11/17 01/19/18 No Ref-Primary, Physician PCP - General 01/20/18 04/30/18 [place] [address] [place], [place] [id number] PCP - General 05/01/18 09/24/20 Villa Santamaria PA-C [address] [place] [address] PCP - Assigned PCP 05/01/18 01/31/19 No Ref-Primary, Physician PCP - General 09/25/20 09/26/[address] [place], [place] [id number] PCP - General 09/27/20 08/16/21 [place] [address] [place] [address] PCP - General Family Medicine 08/17/21 10/26/22 [place] [address] [place] [address] PCP - General Family Medicine 10/27/22 10/27/22 No Ref-Primary, Physician PCP - General 11/06/22 04/21/23 [place] [address] [place] [address] PCP - General Family Medicine 04/22/23 Villa Santamaria PA-C [address] [place] [address] Assigned PCP 05/01/18 08/19/19 [place] [address] [place] [address] Assigned PCP 08/20/19 03/16/20 [place] [address] [place] [address] Assigned PCP 03/17/20 03/15/21 Villa Santamaria PA-C [address] [place] [address] Assigned PCP 03/16/21 05/03/21 [place] [address] [place] [address] Assigned PCP 05/04/21 01/17/22 Sienna Guillermo DO [address] [place] [address] Assigned Heart and Vascular Provider 09/21/21 10/04/21 Sandy Cox APRN CNP [address] [place] [address] Assigned Heart and Vascular Provider 10/05/21 09/04/22 [place] [address] [place] [address] Assigned PCP 01/18/22 10/30/22 Sienna Guillermo DO [address] [place] [address] Assigned Heart and Vascular Provider 09/05/22 03/12/23 Mai Urena PA-C [address] [place] [place] [address] Assigned PCP 10/31/22 01/22/23 [place] [address] [place] [address] Assigned Pain Medication Provider 12/07/22 [place] [address] [address] [address] Assigned PCP 01/23/23 [place] [address] [place] [address] Assigned Musculoskeletal Provider 01/23/23 09/19/24 Amy Montes De Oca RN Clinic Grinder Dresser 05/13/2305/17 Gregorio Dalton PA-C [address] [place] [address] Assigned Surgical Provider 05/22/23 07/20/24 Kingsley Garcia MD [address] [place] [address] Assigned Heart and Vascular Provider 08/07/23 [place] [address] [address] [address] Family Medicine 09/10/23 Master Shea PA-C [address] [place] [address] Physician Fur Remodeler Gastroenterology 09/10/23 Allyssa Justice MD [facility] [address] [place] [address] Hematology & Oncology 12/10/23 Genaro Christian MD [address] [place] [address] Cardiovascular Disease 12/22/23 Master Shea PA-C [address] [place] [address] Assigned Gastroenterology Provider 12/23/23 Sienna Guillermo DO [address] [place] [address] Physician Cardiovascular Disease 01/18/24 Allyssa Justice MD [facility] [address] [place] [address] Assigned Cancer Care Provider 03/21/24 Declan Leavitt MD [address] [place] [address] Assigned Surgical Provider 07/21/24 Ugo Ochoa MD [address] [place] [address] [id number] Assigned Neuroscience Provider 09/20/24 documented as of this encounter
--- OUTSIDE RECORDS SUMMARY | 2024-09-21 22:47 | XMS_ITS | Encounter Summary ---
Author Organization [facility] Address [address] [place] [address] Care Team Providers Care Digester Hand Name Role Phone Segundo Mcclelland MD Primary Care Provider + Sandy Cox APRN, CNP Unavailable Segundo Mcclelland MD Unavailable [phone] Sienna Guillermo DO Unavailable [phone] Malia Dhillon MD Primary Care Provider [phone] No Ref-Primary, Physician Primary Care Provider Mai UrenaC Unavailable [phone] Segundo Mcclelland MD Unavailable +[phone] Segundo Mcclelland MD Unavailable [phone] Qamar Jackson MD Unavailable Segundo Mcclelland MD Primary Care Provider + Amy Montes De Oca RN Unavailable [phone] Gregorio Dalton-C Unavailable [phone] Kingsley Garcia MD Unavailable + [phone] Segundo Mcclelland MD Unavailable [phone] Master Shea PA-C Unavailable Allyssa Justice MD Unavailable [phone] Genaro Christian MD Unavailable [phone] Master Shea PA-C Unavailable Sienna Guillermo Malia MCCORMACK Unavailable Allyssa Justice MD Unavailable [phone] Declan Leavitt MD Unavailable Ugo Ochoa MD Unavailable Encounter Details Date Type Department Care Team (Late st Contact Info) Description 05/19/2022 MyC Medical Advice [facility] [address] [place] [address] Mai Urena PA-C [address] [place] [address] Social History Tobacco Use Types Packs/Day Years Used Date Smoking Tobacco: Never Smokeless Tobacco: Never Alcohol Use Standard Drinks/Week Comments Yes 0 (1 standard drink = 0.6 oz pur e alcohol) occasional PHQ-2 Answer Date Recorded PHQ-2 Score 2 05/19/2022 Comments No Sex and Gender Information Value Date Recorded Sex Assigned at Female 05/26/2021 10:37 AM CDT Legal Sex Female 3:29 AM MOTEL FRONT DESK CLERK Gender Identity Female 05/26/2021 10:37 AM [...] RN - 05/19/2022 5:09 PM CDT See Markerly message below. Routing to provider to review and advise. Malia Torres RN [facility] documented in this encounter Plan of Treatment Upcoming Encounters Date Type Department Care Team (Late st Contact Info) Description 02/20/2025 10:20 AM CDT Appointment [facility] [address] [place] [phone] Allyssa Justice MD [facility] [address] [place] [address] 02/27/2025 10:40 AM CDT Virtual Visit [facility] [address] [facility] Medical Ctr [place] [phone] Allyssa Justice MD [facility] [address] [place] [id number] documented as of this encounter Visit Diagnoses Not on filedocumented in this encounter Additional Health Concerns Infection Onset Date Last Indicated Resolved Time Rule Out COVID-19 10/27/2022 10/27/2022 10/27/2022 3:19 AM MOTEL FRONT DESK CLERK Influenza 10/27/2022 10/27/2022 11/03/2022 11:4 0 PM MOTEL FRONT DESK CLERK Rule Out COVID-19 01/04/2023 01/04/2023 01/04/2023 8:32 PM MOTEL FRONT DESK CLERK Rule Out C-difficile 01/04/2023 01/04/2023 023 1:46 AM MOTEL FRONT DESK CLERK Rule Out C-difficile 01/07/2023 01/07/2023 023 8:18 PM MOTEL FRONT DESK CLERK Rule Out C-difficile 06/04/2023 06/04/2023 023 11:28 AM CDT Rule Out Eleonora auris 06/04/2023 06/04/202306/07 9:24 AM CDT ESBL 10/23/2023 05/26/2024 Rule Out COVID-19 11/10/2023 11/10/2023 11/10/2023 7:17 PM MOTEL FRONT DESK CLERK Rule Out COVID-19 01/18/2024 01/18/2024 01/18/2024 8:53 PM MOTEL FRONT DESK CLERK Rule Out COVID-19 01/28/2024 01/28/2024 01/28/2024 10:22 PM MOTEL FRONT DESK CLERK Rule Out COVID-19 02/17/2024 02/17/2024 02/17/2024 5:07 PM CDT Rule Out COVID-19 04/22/2024 04/22/2024 04/23/2024 12:06 AM CDT Assessment Noted Time PHQ-9 Depression Total Score: 7 05/19/20 10:06 AM CDT documented as of this encounter Care Teams Digester Hand Relationship Specialty Start [place] [address] [address] [place] [address] PCP - General Family Medicine 08/17/21 10/26/22 [place] [address] [place] [address] PCP - General Family Medicine 10/27/22 10/27/22 No Ref-Primary, Physician PCP - General 11/06/22 04/21/23 [place] [address] [address] [address] PCP - General Family Medicine 04/22/23 Sandy Cox APRN CNP 1700 [place] [address] Assigned Heart and Vascular Provider 10/05/21 09/04/22 [place] [address] [address] [place] [address] Assigned PCP 01/18/22 10/30/22 Sienna Guillermo DO [address] [place] [address] Assigned Heart and Vascular Provider 09/05/22 03/12/23 Mai Urena PA-C [address] [place] [address] Assigned PCP 10/31/22 01/22/23 [place] [address] [address] [place], [place] 2241368 Assigned Pain Medication Provider 12/07/22 [place] [address] [place] [address] Assigned PCP 01/23/23 [place] [address] [place] [address] Assigned Musculoskeletal Provider 01/23/23 09/19/24 Amy Montes De Oca RN Clinic Dry Curer 05/13/2305/17 Gregorio Dalton PA-C [address] [place] [address] Assigned Surgical Provider 05/22/23 07/20/24 Kingsley Garcia MD [address] [place] [address] Assigned Heart and Vascular Provider 08/07/23 [place] [address] [address] [place] [address] Family Medicine 09/10/23 Master Shea PA-C [address] [place] [address] Physician Library Acquisitions Technician Gastroenterology 09/10/23 Allyssa Justice MD [facility] [address] [address] [place] [address] Hematology & Oncology 12/10/23 Genaro Christian MD [address] [place] [address] Cardiovascular Disease 12/22/23 Master Shea PA-C [address] [place] [address] Assigned Gastroenterology Provider 12/23/23 Sienna Guillermo DO [address] [place] [address]130[address] Physician Cardiovascular Disease 01/18/24 Allyssa Justice MD [facility] [address] [place] [address]64[address] Assigned Cancer Care Provider 03/21/24 Declan Leavitt MD [address] [place] [address] Assigned Surgical Provider 07/21/24 Ugo Ochoa MD [address] [place], [place] 7[address]385 Assigned Neuroscience Provider 09/20/24 documented as of this encounter
--- OUTSIDE RECORDS SUMMARY | 2024-09-21 22:47 | XMS_ITS | Encounter Summary ---
Author Organization [facility] Address [facility] [place] [address] Care Team Providers Care Bag Filler Name Role Phone [facility] Primary Care Provide r Villa Santamaria PA-C Unavailable + Villa Santamaria PA-C Unavailable + Segundo Mcclelland MD Unavailable + Segundo Mcclelland MD Unavailable + No Ref-Primary, Physician Primary Care Provider [facility] Primary Care Provide r Villa Santamaria PA-C Unavailable + Segundo Mcclelland MD Unavailable + Segundo Mcclelland MD Primary Care Provider + Sienna Guillemro DO Unavailable [phone] Sandy Cox APRN, CNP Unavailable + Segundo Mcclelland MD Unavailable + Sienna Guillermo DO Unavailable [phone] Malia Dhillon MD Primary Care Provider [phone] No Ref-Primary, Physician Primary Care Provider Mai Urena PA-C Unavailable Segundo Mcclelland MD Unavailable [phone] Segundo Mcclelland MD Unavailable [phone] Qamar Jackson MD Unavailable Segundo Mcclelland MD Primary Care Provider + Amy Montes De Oca RN Unavailable Gregorio Dalton PA-C Unavailable [phone] Kingsley Garcia MD Unavailable [phone] Segundo Mcclelland MD Unavailable [phone] Master Shea PA-C Unavailable Allyssa Justice MD Unavailable [phone] Genaro Christian MD Unavailable Master Shea PA-C Unavailable Sienna Guillermo DO Unavailable [phone] Allyssa Justice MD Unavailable [phone] Declan Leavitt MD Unavailable Ugo Ochoa MD Unavailable Reason for Visit * Reason Onset Date Comments Medication Refill 10/11/2018 busPIRone (BUS PAR) 5 MG tablet Encounter Details Date Type Department Care Team (Late st Contact Info) Description 10/11/[address], [address] [place] [address] Villa Santamaria PA-C [address] [place] [address] Medication Refill (busPIRone (BUSPAR) 5 MG tablet) Social History Tobacco Use Types Packs/Day Years Used Date Smoking Tobacco: Never Smokeless Tobacco: Never Alcohol Use Standard Drinks/Week Comments Yes 0 (1 standard drink = 0.6 oz pur e alcohol) occasional Comments No Sex and Gender Information Value Date Recorded Sex Assigned at Female 05/26/2021 10:37 AM CDT Legal Sex Female 3:29 AM BUSINESS SERVICES COORDINATOR Gender Identity Female 05/26/2021 10:37 AM [...] 10/12/2018 11:06 AM CST Prescription approved per [facility] [place] [place] Refill Protocol. Monie Chun RN NESS SERVICES COORDINATOR * Telephone Encounter - Dee Min - [...] No positive test in past 12 mos NESS SERVICES COORDINATOR documented in this encounter Plan of Treatment Upcoming Encounters Date Type Department Care Team (Late st Contact Info) Description 02/20/2025 10:20 AM CDT Appointment [facility] [address] [place] [phone] Allyssa Justice MD [facility] [address] [address] [place] [id number] 02/27/2025 10:40 AM CDT Virtual Visit [facility] [address] [facility] Medical [facility]tr [place] [phone] Allyssa Justice MD [facility] [address] [place] [address] [place] [address] documented as of this encounter Visit Diagnoses Diagnosis Anxiety Anxiety state, unspecified documented in this encounter Additional Health Concerns Infection Onset Date Last Indicated Resolved Time Rule Out COVID-19 02/29/2020 02/29/2020 03/01/2020 9:51 PM CDT Rule Out COVID-19 05/05/2020 05/05/2020 05/06/2020 2:19 AM CDT Rule Out COVID-19 08/20/2020 08/20/2020 08/21/2020 10:31 PM CDT Rule Out COVID-19 10/27/2020 10/27/2020 11/17/2020 11:39 PM BUSINESS SERVICES COORDINATOR Rule Out COVID-19 12/23/2020 12/24/2020 12/24/2020 2:08 AM BUSINESS SERVICES COORDINATOR Rule Out COVID-19 01/24/2021 01/24/2021 01/24/2021 9:18 PM BUSINESS SERVICES COORDINATOR Rule Out COVID-19 10/27/2022 10/27/2022 10/27/2022 3:19 AM BUSINESS SERVICES COORDINATOR Influenza 10/27/2022 10/27/2022 11/03/2022 11:4 0 PM BUSINESS SERVICES COORDINATOR Rule Out COVID-19 01/04/2023 01/04/2023 01/04/2023 8:32 PM BUSINESS SERVICES COORDINATOR Rule Out C-difficile 01/04/2023 01/04/2023 023 1:46 AM BUSINESS SERVICES COORDINATOR Rule Out C-difficile 01/07/2023 01/07/2023 023 8:18 PM BUSINESS SERVICES COORDINATOR Rule Out C-difficile 06/04/2023 06/04/2023 023 11:28 AM CDT Rule Out Eleonora auris 06/04/2023 06/04/202306/07 9:24 AM CDT ESBL 10/23/2023 05/26/2024 Rule Out COVID-19 11/10/2023 11/10/2023 11/10/2023 7:17 PM BUSINESS SERVICES COORDINATOR Rule Out COVID-19 01/18/2024 01/18/2024 01/18/2024 8:53 PM BUSINESS SERVICES COORDINATOR Rule Out COVID-19 01/28/2024 01/28/2024 01/28/2024 10:22 PM BUSINESS SERVICES COORDINATOR Rule Out COVID-19 02/17/2024 02/17/2024 02/17/2024 5:07 PM CDT Rule Out COVID-19 04/22/2024 04/22/2024 04/23/2024 12:06 AM CDT Assessment Noted Time PHQ-9 Depression Total Score: 1 08/16/20 18 4:58 PM CDT documented as of this encounter Care Teams Bag Filler Relationship Specialty Start Date End Date [facility] LIFESTYLE [place] [address] PCP - General 05/01/18 09/24/20 Villa Santamaria PA-C [address] [address] [address] PCP - Assigned PCP 05/01/18 01/31/19 No Ref-Primary, Physician PCP - General 09/25/20 09/26/20 [facility] LIFESTYLE COORDINATOR [place], [place] 0[address] PCP - General 09/27/20 08/16/21 [place] [address] [place] [address] PCP - General Family Medicine 08/17/21 10/26/22 [place] [address] [place] [address] PCP - General Family Medicine 10/27/22 10/27/22 No Ref-Primary, Physician PCP - General 11/06/22 04/21/23 [place] [address] [place] [address] PCP - General Family Medicine 04/22/23 Villa Santamaria PA-C [address] [place] [address] Assigned PCP 05/01/18 08/19/19 [place] [address] [place] [address] Assigned PCP 08/20/19 03/16/20 [place] [address] [place] [address] Assigned PCP 03/17/20 03/15/21 Villa Santamaria PA-C [address] [place] [address] Assigned PCP 03/16/21 05/03/21 [place] [address] [place] [address] Assigned PCP 05/04/21 01/17/22 Sienna Guillermo DO [address] [place] [address] Assigned Heart and Vascular Provider 09/21/21 10/04/21 Sandy Cox APRN CNP 1700 [place] [address] Assigned Heart and Vascular Provider 10/05/21 09/04/22 [place] [address] [place] [address] Assigned PCP 01/18/22 10/30/22 Sienna Guillermo DO [address] [place] [address] Assigned Heart and Vascular Provider 09/05/22 03/12/23 Mai Urena PA-C [address] [place] [address] Assigned PCP 10/31/22 01/22/23 [place] [address] [address] [address] Assigned Pain Medication Provider 12/07/22 [place] [address] [address] [address] Assigned PCP 01/23/23 [place] [address] [place] [address] Assigned Musculoskeletal Provider 01/23/23 09/19/24 Amy Montes De Oca, RN Clinic Belt Turner 05/13/2305/17 Gregorio Dalton PA-C [address] [address] Assigned Surgical Provider 05/22/23 07/20/24 Kingsley Garcia MD [address] [place] [address] Assigned Heart and Vascular Provider 08/07/23 [place] [address] [place] [address] Family Medicine 09/10/23 Master Shea PA-C [address] [place] [place] [address] Physician Instrument Installer Gastroenterology 09/10/23 Allyssa Justice MD [facility] [address] [place] [address] Hematology & Oncology 12/10/23 Genaro Christian MD [address] [place], [place] [address] Cardiovascular Disease 12/22/23 Master Shea PA-C [address] [place] [address] Assigned Gastroenterology Provider 12/23/23 Sienna Guillermo DO [address] [place] [address] Physician Cardiovascular Disease 01/18/24 Allyssa Justice MD [facility] [address] [place] [address] Assigned Cancer Care Provider 03/21/24 Declan Leavitt MD [address] [place] [address] [place] [address] Assigned Surgical Provider 07/21/24 Ugo Ochoa MD [address] [place], [place] [address] Assigned Neuroscience Provider 09/20/24 documented as of this encounter
--- OUTSIDE RECORDS SUMMARY | 2024-09-21 22:47 | XMS_ITS | Encounter Summary ---
Author Organization [place] Address [address] [place] [address] Care Team Providers Care Filtration Plant Operator Name Role Phone Segundo Mcclelland MD Unavailable +[phone] Segundo Mcclelland MD Primary Care Provider + Sandy Cox APRN CLINICAL TEAM LEAD Unavailable Segundo Mcclelland MD Unavailable +[phone] Sienna Guillermo DO Unavailable +[phone] Malia Dhillon MD Primary Care Provider +[phone] No Ref-Primary, Physician Primary Care Provider Mai Urena PA-C Unavailable +[phone] Segundo Mcclelland MD Unavailable + [phone] Segundo Mcclelland MD Unavailable + [phone] Qamar Jackson MD Unavailable Segundo Mcclelland MD Primary Care Provider + Amy Montes De Oca RN Unavailable +[phone] Gregorio Dalton PA-C Unavailable +[phone] Kingsley Garcia MD Unavailable + [phone] Segundo Mcclelland MD Unavailable +[phone] Master Shea PA-C Unavailable Allyssa Justice MD Unavailable +[phone] EsGenaro olmos MD Unavailable [phone] Master Shea PA-C Unavailable Sienna Guillermo DO Unavailable +[phone] Allyssa Justice MD Unavailable +[phone] Declan Leavitt MD Unavailable Ugo Ochoa MD Unavailable Reason for Visit * Reason Onset Date Comments Patient Request 01/09/2022 Encounter Details Date Type Department Care Team (Late st Contact Info) Description 01/09/[address] [facility] [address] [place] [address] [place] [address] [place] [address] Patient Request Social History Tobacco Use Types Packs/Day Years Used Date Smoking Tobacco: Never Smokeless Tobacco: Never Alcohol Use Standard Drinks/Week Comments Yes 0 (1 standard drink = 0.6 oz pur e alcohol) occasional PHQ-2 Answer Date Recorded PHQ-2 Score 0 01/09/2022 Comments No Sex and Gender Information Value Date Recorded Sex Assigned at Female 05/26/2021 10:37 AM CDT Legal Sex Female 3:29 AM CASTING MACHINE CONTROL BOARD OPERATOR Gender Identity Female 05/26/2021 10:37 AM [...] COVID-19? No / Unsure 01/10/2022 2:32 PM CASTING MACHINE CONTROL BOARD OPERATOR documented as of this encounter Miscellaneous Notes * Telephone Encounter - Donato Argueta, RN - 01/09/2022 2:22 PM CST Please see patient Mychart message, follow up from Nurse triage encounter 01/09/22. Donato Means RN ING MACHINE CONTROL BOARD OPERATOR documented in this encounter Plan of Treatment Upcoming Encounters Date Type Department Care Team (Late st Contact Info) Description 02/20/2025 10:20 AM CDT Appointment [facility] [address] [place] [address] [place] [address] Allyssa Justice MD [facility] [address] [place] [address] [address] 02/27/2025 10:40 AM CDT Virtual Visit [facility] [address], [address] [address] [facility] [place] [address] [place] [address] Allyssa Justice MD [facility] [address] [place] [address] [address] documented as of this encounter Visit Diagnoses Not on filedocumented in this encounter Additional Health Concerns Infection Onset Date Last Indicated Resolved Time Rule Out COVID-19 10/27/2022 10/27/2022 10/27/2022 3:19 AM CASTING MACHINE CONTROL BOARD OPERATOR Influenza 10/27/2022 10/27/2022 11/03/2022 11:4 0 PM CASTING MACHINE CONTROL BOARD OPERATOR Rule Out COVID-19 01/04/2023 01/04/2023 01/04/2023 8:32 PM CASTING MACHINE CONTROL BOARD OPERATOR Rule Out C-difficile 01/04/2023 01/04/2023 023 1:46 AM CASTING MACHINE CONTROL BOARD OPERATOR Rule Out C-difficile 01/07/2023 01/07/2023 023 8:18 PM CASTING MACHINE CONTROL BOARD OPERATOR Rule Out C-difficile 06/04/2023 06/04/2023 023 11:28 AM CDT Rule Out Eleonora auris 06/04/2023 06/04/202306/07 9:24 AM CDT ESBL 10/23/2023 05/26/2024 Rule Out COVID-19 11/10/2023 11/10/2023 11/10/2023 7:17 PM CASTING MACHINE CONTROL BOARD OPERATOR Rule Out COVID-19 01/18/2024 01/18/2024 01/18/2024 8:53 PM CASTING MACHINE CONTROL BOARD OPERATOR Rule Out COVID-19 01/28/2024 01/28/2024 01/28/2024 10:22 PM CASTING MACHINE CONTROL BOARD OPERATOR Rule Out COVID-19 02/17/2024 02/17/2024 02/17/2024 5:07 PM CDT Rule Out COVID-19 04/22/2024 04/22/2024 04/23/2024 12:06 AM CDT Assessment Noted Time PHQ-9 Depression Total Score: 1 08/16/20 18 4:58 PM CDT documented as of this encounter Care Teams Filtration Plant Operator Relationship Specialty Start [place] [address] [address] [address] PCP - General Family Medicine 08/17/21 10/26/22 [place] [address] [place] [address] PCP - General Family Medicine 10/27/22 10/27/22 No Ref-Primary, Physician PCP - General 11/06/22 04/21/23 [place] [address] [address] [address] PCP - General Family Medicine 04/22/23 [place] [address] [address] [address] Assigned PCP 05/04/21 01/17/22 Sandy Cox APRN CNP [address]00 [place] [address] Assigned Heart and Vascular Provider 10/05/21 09/04/22 [place] [address] [place] [address] Assigned PCP 01/18/22 10/30/22 Sienna Guillermo DO [address] [facility] [address] [place] [address] Assigned Heart and Vascular Provider 09/05/22 03/12/23 Mai Urena PA-C [address] [facility] [address] Assigned PCP 10/31/22 01/22/23 [place] [address] [place] [address] Assigned Pain Medication Provider 12/07/22 [place] [address] [place] [address] Assigned PCP 01/23/23 [place] [address] [place] [address] Assigned Musculoskeletal Provider 01/23/23 09/19/24 Amy Montes De Oca, RN Clinic Shake Out Worker 05/13/2305/17 Gregorio Dalton PA-C [address] [address] Assigned Surgical Provider 05/22/23 07/20/24 Kingsley Garcia MD [address] [place] [address] Assigned Heart and Vascular Provider 08/07/23 [place] [address] [address] [address] Family Medicine 09/10/23 Master Shea PA-C [address] [place] [address] Physician Bin Piler Gastroenterology 09/10/23 Allyssa Justice MD [facility] [address] [address] [address] Hematology & Oncology 12/10/23 Genaro Christian MD [address] [place] [address]6085 Cardiovascular Disease 12/22/23 Master Shea PA-C [address] [place] [address] Assigned Gastroenterology Provider 12/23/23 Sienna Guillermo DO [address] [place] 9975[address] Physician Cardiovascular Disease 01/18/24 Allyssa Justice MD [facility] [address] 648[address] Assigned Cancer Care Provider 03/21/24 Declan Leavitt MD [address] 6789[address] Assigned Surgical Provider 07/21/24 Ugo Ochoa MD [address] [place], [place] 6947[address] Assigned Neuroscience Provider 09/20/24 documented as of this encounter
--- OUTSIDE RECORDS SUMMARY | 2024-09-21 22:47 | XMS_ITS | Encounter Summary ---
Author Organization [place] Address Replaced by [facility] [place] [address] Care Team Providers Care Vice President Risk Management Name Role Phone [facility] Primary Care Provide r Villa Santamaria PA-C Unavailable + Villa Santamaria PA-C Unavailable + Segundo Mcclelland MD Unavailable + Segundo Mcclelland MD Unavailable + No Ref-Primary, Physician Primary Care Provider [facility] Primary Care Provide r Villa Santamaria PA-C Unavailable + Segundo Mcclelland MD Unavailable + Segundo Mcclelland MD Primary Care Provider + Sienna Guillermo DO Unavailable +[phone] Sandy Cox APRN, CNP Unavailable + Segundo Mcclelland MD Unavailable + Sienna Guillermo DO Unavailable +[phone] Malia Dhillon MD Primary Care Provider [phone] No Ref-Primary, Physician Primary Care Provider Mai Urena PA-C Unavailable [phone] Segundo Mcclelland MD Unavailable [phone] Segundo Mcclelland MD Unavailable + [phone] Qamar Jackson MD Unavailable Segundo Mcclelland MD Primary Care Provider + Amy Montes De Oca RN Unavailable [phone] Gregorio Dalton PA-C Unavailable +[phone] Kingsley Gracia MD Unavailable + [phone] Segundo Mcclelland MD Unavailable +[phone] Master Shea PA-C Unavailable Allyssa Justice MD Unavailable +[phone] Genaro Christian MD Unavailable [phone] Master Shea PA-C Unavailable Sienna Guillermo DO Unavailable Allyssa Justice MD Unavailable [phone] Declan Leavitt MD Unavailable Ugo Ochoa MD Unavailable Encounter Details Date Type Department Care Team (Late st Contact Info) Description 05/17/2018 MyC Medical Advice [address], [address] [place] [address] Villa Santamaria PA-C [address] [place] [address] Social History Tobacco Use Types Packs/Day Years Used Date Smoking Tobacco: Never Smokeless Tobacco: Never Alcohol Use Standard Drinks/Week Comments Yes 0 (1 standard drink = 0.6 oz pur e alcohol) occasional Comments No Sex and Gender Information Value Date Recorded Sex Assigned at Female 05/26/2021 10:37 AM CDT Legal Sex Female 3:29 AM GRAPHIC DESIGNER Gender Identity Female 05/26/2021 10:37 AM [...] AM CDT Appointment [facility] Imaging [address] [place] [address] [place] [phone] Allyssa Justice MD [facility] [address] [place] [address] [address] 02/27/2025 10:40 AM CDT Virtual Visit [place] [phone], [address] [address] [facility] Medical Ctr [place] [address] [phone] Allyssa Justice MD [facility] [address] [place] [address] [place] [address] documented as of this encounter Visit Diagnoses Not on filedocumented in this encounter Additional Health Concerns Infection Onset Date Last Indicated Resolved Time Rule Out COVID-19 02/29/2020 02/29/2020 03/01/2020 9:51 PM CDT Rule Out COVID-19 05/05/2020 05/05/2020 05/06/2020 2:19 AM CDT Rule Out COVID-19 08/20/2020 08/20/2020 08/21/2020 10:31 PM CDT Rule Out COVID-19 10/27/2020 10/27/2020 11/17/2020 11:39 PM GRAPHIC DESIGNER Rule Out COVID-19 12/23/2020 12/24/2020 12/24/2020 2:08 AM GRAPHIC DESIGNER Rule Out COVID-19 01/24/2021 01/24/2021 01/24/2021 9:18 PM GRAPHIC DESIGNER Rule Out COVID-19 10/27/2022 10/27/2022 10/27/2022 3:19 AM GRAPHIC DESIGNER Influenza 10/27/2022 10/27/2022 11/03/2022 11:4 0 PM GRAPHIC DESIGNER Rule Out COVID-19 01/04/2023 01/04/2023 01/04/2023 8:32 PM GRAPHIC DESIGNER Rule Out C-difficile 01/04/2023 01/04/2023 023 1:46 AM GRAPHIC DESIGNER Rule Out C-difficile 01/07/2023 01/07/2023 023 8:18 PM GRAPHIC DESIGNER Rule Out C-difficile 06/04/2023 06/04/2023 023 11:28 AM CDT Rule Out Eleonora auris 06/04/2023 06/04/202306/07 9:24 AM CDT ESBL 10/23/2023 05/26/2024 Rule Out COVID-19 11/10/2023 11/10/2023 11/10/2023 7:17 PM GRAPHIC DESIGNER Rule Out COVID-19 01/18/2024 01/18/2024 01/18/2024 8:53 PM GRAPHIC DESIGNER Rule Out COVID-19 01/28/2024 01/28/2024 01/28/2024 10:22 PM GRAPHIC DESIGNER Rule Out COVID-19 02/17/2024 02/17/2024 02/17/2024 5:07 PM CDT Rule Out COVID-19 04/22/2024 04/22/2024 04/23/2024 12:06 AM CDT Assessment Noted Time PHQ-9 Depression Total Score: 3 04/30/20 18 7:18 AM CDT documented as of this encounter Care Teams Vice President Risk Management Relationship Specialty Start Date End Date [facility] MEDICAL CODING AUD[address] [facility] [place] [id number] PCP - General 05/01/18 09/24/20 Villa Santamaria PA-C [address] [address] PCP - Assigned PCP 05/01/18 01/31/19 No Ref-Primary, Physician PCP - General 09/25/20 09/26/20 [facility] [address] MEDICAL CODING AUDITOR [place] [place], [place] 1426424 PCP - General 09/27/20 08/16/21 [place] [address] [address] [address] PCP - General Family Medicine 08/17/21 10/26/22 [place] [address] [place] [address] PCP - General Family Medicine 10/27/22 10/27/22 No Ref-Primary, Physician PCP - General 11/06/22 04/21/23 [place] [address] [address] [address] PCP - General Family Medicine 04/22/23 Villa Santamaria PA-C [address] [address] Assigned PCP 05/01/18 08/19/19 [place] [address] [address] [address] Assigned PCP 08/20/19 03/16/20 [place] [address] [address] [address] Assigned PCP 03/17/20 03/15/21 Villa Santamaria PA-C [address] [place] [address] Assigned PCP 03/16/21 05/03/21 [place] [address] [place] [address] Assigned PCP 05/04/21 01/17/22 Sienna Guillermo DO [address] [place] [address] Assigned Heart and Vascular Provider 09/21/21 10/04/21 Sandy Cox APRN CNP 1700 [place] [address] Assigned Heart and Vascular Provider 10/05/21 09/04/22 [place] [address] [place] [address] Assigned PCP 01/18/22 10/30/22 Sienna Guillermo DO [address] [place] [address] Assigned Heart and Vascular Provider 09/05/22 03/12/23 Mai Urena PA-C [address] [place] [address] Assigned PCP 10/31/22 01/22/23 [place] [address] [place] [address] Assigned Pain Medication Provider 12/07/22 [place] [address] [place] [address] Assigned PCP 01/23/23 [place] [address] [place] [address] Assigned Musculoskeletal Provider 01/23/23 09/19/24 Amy Montes De Oca RN Clinic Agronomy Research Manager 05/13/2305/17 Gregorio Dalton PA-C [address] [place] [address] Assigned Surgical Provider 05/22/23 07/20/24 Kingsley Garcia MD [address] [place] [address] Assigned Heart and Vascular Provider 08/07/23 [place] [address] [place] [address] Family Medicine 09/10/23 Master Shea PA-C [address] [place] [place] [address] Physician Utilization Management Manager Gastroenterology 09/10/23 Allyssa Justice MD [facility] [address] [address] [address] Hematology & Oncology 12/10/23 Genaro Christian MD [address] [place] [address] Cardiovascular Disease 12/22/23 Master Shea PA-C [address] [place] [address] Assigned Gastroenterology Provider 12/23/23 Sienna Guillermo DO [address] [place] [address] Physician Cardiovascular Disease 01/18/24 Allyssa Justice MD [facility] [address] [address] [address] Assigned Cancer Care Provider 03/21/24 Declan Leavitt MD [address] [address] [address] Assigned Surgical Provider 07/21/24 Ugo Ochoa MD [address] [place] [address]695 Assigned Neuroscience Provider 09/20/24 documented as of this encounter
--- OUTSIDE RECORDS SUMMARY | 2024-09-21 22:47 | XMS_ITS | Encounter Summary ---
Author Organization [place] Address [address] [place] [address] Care Team Providers Care Sports Clerk Name Role Phone Taylor Cardozo [facility] Primary Care Provider None Primary Care [facility] Jennifer Montejo MD Primary Care Provider [phone] Nimo Wetzel MD Primary Care Provider + Kin Waite MD Primary Care Provider [phone] [facility] Primary Care Prov ider Uyen Palm MD Primary Care Provider [phone] Milady Oakes MD Primary Care Provider + [facility] Primary Care Provider [facility] Primary Care Pro vider No Ref-Primary, Physician Primary Care Provider [facility] Care Provide r Villa Santamaria PA-C Unavailable + Villa Santamaria PA-C Unavailable + Segundo Mcclelland MD Unavailable + Segundo Mcclelland MD Unavailable + No Ref-Primary, Physician Primary Care Provider [facility] Primary Care Provide r Villa SantamariaC Unavailable +[phone] Segundo Mcclelland MD Unavailable + Segundo Mcclelland MD Primary Care Provider + Sienna Guillermo DO Unavailable + Sandy Cox APRN UROLOGY PHYSICIAN Unavailable + Segundo Mcclelland MD Unavailable + Sienna Guillermo DO Unavailable +[phone] Malia Dhillon MD Primary Care Provider +[phone] No Ref-Primary, Physician Primary Care Provider Mai UrenaC Unavailable [phone] Segundo Mcclelland MD Unavailable + Segundo Mcclelland MD Unavailable + Qamar Jackson MD Unavailable Segundo Mcclelland MD Primary Care Provider + Amy Montes De Oca RN Unavailable +[phone] Gregorio Dalton-C Unavailable + [phone] Kingsley Garcia MD Unavailable [phone] Segundo Mcclelland MD Unavailable + Master Shea PA-C Unavailable Allyssa Justice MD Unavailable [phone] Genaro Christian MD Unavailable [phone] Master Shea-C Unavailable Sienna Guillermo DO Unavailable [phone] Allyssa Justice MD Unavailable [phone] Declan Leavitt MD Unavailable Ugo Ochoa MD Unavailable Encounter Details Date Type Department Care Team (Late st Contact Info) Description 09/08/2009 [facility] [address] [facility] [place] [address] Bess Brito MD [address] [place], [place] [phone] EMERG[facility]Y MED SERVICES Social History Tobacco Use Types Packs/Day Years Used Date Smoking Tobacco: Never Passive Smoke Exposure: Never Smokeless Tobacco: Never Alcohol Use Standard Drinks/Week Comments Not Currently 0 (1 standard drink = 0.6 oz pur e alcohol) none for 1 year Comments No Sex and Gender Information Value Date Recorded Sex Assigned at Female 05/26/2021 10:37 AM CDT Legal Sex Female 3:29 AM SHIPPER Gender Identity Female 05/26/2021 10:37 AM CDT [...] 10:20 AM CDT Appointment [facility] [address] [facility] [address] [place] [address] Allyssa Justice MD [facility] [address] [place] [address] 02/27/2025 10:40 AM CDT Virtual Visit [facility] [address], [address] [facility] [place] [address] [place] [phone] Allyssa Justice MD [facility] [address] [place] [address] documented as of this encounter Visit Diagnoses Diagnosis EMERGENCY MED SERVICES- Primary documented in this encounter Additional Health Concerns Infection Onset Date Last Indicated Resolved Time Rule Out COVID-19 02/29/2020 02/29/2020 03/01/2020 9:51 PM CDT Rule Out COVID-19 05/05/2020 05/05/2020 05/06/2020 2:19 AM CDT Rule Out COVID-19 08/20/2020 08/20/2020 08/21/2020 10:31 PM CDT Rule Out COVID-19 10/27/2020 10/27/2020 11/17/2020 11:39 PM SHIPPER Rule Out COVID-19 12/23/2020 12/24/2020 12/24/2020 2:08 AM SHIPPER Rule Out COVID-19 01/24/2021 01/24/2021 01/24/2021 9:18 PM SHIPPER Rule Out COVID-19 10/27/2022 10/27/2022 10/27/2022 3:19 AM SHIPPER Influenza 10/27/2022 10/27/2022 11/03/2022 11:4 0 PM SHIPPER Rule Out COVID-19 01/04/2023 01/04/2023 01/04/2023 8:32 PM SHIPPER Rule Out C-difficile 01/04/2023 01/04/2023 023 1:46 AM SHIPPER Rule Out C-difficile 01/07/2023 01/07/2023 023 8:18 PM SHIPPER Rule Out C-difficile 06/04/2023 06/04/2023 023 11:28 AM CDT Rule Out Eleonora auris 06/04/2023 06/04/202306/07 9:24 AM CDT ESBL 10/23/2023 05/26/2024 Rule Out COVID-19 11/10/2023 11/10/2023 11/10/2023 7:17 PM SHIPPER Rule Out COVID-19 01/18/2024 01/18/2024 01/18/2024 8:53 PM SHIPPER Rule Out COVID-19 01/28/2024 01/28/2024 01/28/2024 10:22 PM SHIPPER Rule Out COVID-19 02/17/2024 02/17/2024 02/17/2024 5:07 PM CDT Rule Out COVID-19 04/22/2024 04/22/2024 04/23/2024 12:06 AM CDT documented as of this encounter Care Teams Sports Clerk Relationship Specialty Start Date End Date Taylor Cardozo APRN UROLOGY PHYSICIAN [address] [place] [address] PCP - General 01/11/04 09/22/10 None PCP - General 09/23/10 09/02/11 Jennifer Escobedo MD [address] [place] [address] PCP - General eradicator 09/03/11 11/01/11 Nimo Wetzel MD [address] [place] [address] PCP - General 11/02/11 04/17/12 Kin Waite MD [address] [facility] [address] [place] [address] PCP - General eradicator 04/18/12 11/22/12 [facility], [address], [facility] [address] [place] [phone] PCP - General 11/23/12 11/25/13 Uyen Palm MD [address] [facility] 400 [place], [place] [id number] PCP - General eradicator 11/26/13 09/02/14 Milady Oakes MD [facility] [address] [place] [address] PCP - General Family Practice 09/03/14 09/20/15 [facility], [facility] [address] [place] [address] PCP - General 09/21/15 07/10/17 [facility] [address] [place] [address] PCP - General 07/11/17 01/19/18 No Ref-Primary, Physician PCP - General 01/20/18 04/30/18 [facility] [place] FLIGHT [place] [address] PCP - General 05/01/18 09/24/20 Villa Santamaria PA-C [address] [place] [address] PCP - Assigned PCP 05/01/18 01/31/19 No Ref-Primary, Physician PCP - General 09/25/20 09/26/20 [facility] [place] [address] PCP - General 09/27/20 08/16/21 [place] [address] [place] [address] PCP - General Family Medicine 08/17/21 10/26/22 [place] [address] [place] [address] PCP - General Family Medicine 10/27/22 10/27/22 No Ref-Primary, Physician PCP - General 11/06/22 04/21/23 [place] [address] [place] [address] PCP - General Family Medicine 04/22/23 Villa Santamaria PA-C [address] [place] [address] Assigned PCP 05/01/18 08/19/19 [place] [address] [place] [address] Assigned PCP 08/20/19 03/16/20 [place] [address] [place] [address] Assigned PCP 03/17/20 03/15/21 Villa Santamaria PA-C [address] [place] [address] Assigned PCP 03/16/21 05/03/21 [place] [address] [place] [address] Assigned PCP 05/04/21 01/17/22 Sienna Guillermo DO [address] [place] [address] Assigned Heart and Vascular Provider 09/21/21 10/04/21 Sandy Cox APRN CNP [address]00 [place] [address] Assigned Heart and Vascular Provider 10/05/21 09/04/22 [place] [address] [place] [address] Assigned PCP 01/18/22 10/30/22 Sienna Guillermo DO [address] [facility] [address] [place] [address] Assigned Heart and Vascular Provider 09/05/22 03/12/23 Mai Urena PA-C [address] [place] [address] Assigned PCP 10/31/22 01/22/23 [place] [address] [place] [address] Assigned Pain Medication Provider 12/07/22 [place] [address] [place] [address] Assigned PCP 01/23/23 [place] [address] [place] [address] Assigned Musculoskeletal Provider 01/23/23 09/19/24 Amy Montes De Oca RN Clinic Bottom Hoop Driver 05/13/2305/17 Gregorio Dalton PA-C [address] [address] Assigned Surgical Provider 05/22/23 07/20/24 Kingsley Garcia MD [address] [place] [address] Assigned Heart and Vascular Provider 08/07/23 [place] [address] [address] [address] Family Medicine 09/10/23 Master Shea PA-C [address] [place] [address] Physician Actuarial Science Professor Gastroenterology 09/10/23 Allyssa Justice MD [facility] [address] [place] [place] [address] Hematology & Oncology 12/10/23 Genaro Christian MD [address] [place] [address]78[address] Cardiovascular Disease 12/22/23 Master Shea PA-C [address] [place] [address] Assigned Gastroenterology Provider 12/23/23 Sienna Guillermo DO [address] [place] [address] Physician Cardiovascular Disease 01/18/24 Allyssa Justice MD [facility] [address] [place] [address] Assigned Cancer Care Provider 03/21/24 Declan Leavitt MD [address] [place] [address] Assigned Surgical Provider 07/21/24 Ugo Ochoa MD [address] [place], [place] [address] Assigned Neuroscience Provider 09/20/24 documented as of this encounter
--- OUTSIDE RECORDS SUMMARY | 2024-09-21 22:47 | XMS_ITS | Encounter Summary ---
Author Organization [facility] Address [address] [place] [address] Care Team Providers Care Pickler Helper Name Role Phone Segundo Mcclelland MD Unavailable [phone] Segundo Mcclelland MD Primary Care Provider + Sandy Cox APRN FIRE DISPATCHER Unavailable Segundo Mcclelland MD Unavailable +[phone] Sienna Guillermo DO Unavailable +[phone] Malia Dhillon MD Primary Care Provider [phone] No Ref-Primary, Physician Primary Care Provider Mai Urena PA-C Unavailable [phone] Segundo Mcclelland MD Unavailable + [phone] Segundo Mcclelland MD Unavailable + [phone] Qamar Jackson MD Unavailable Segundo Mcclelland MD Primary Care Provider + Amy Montes De Oca RN Unavailable +[phone] Gregorio Dalton PA-C Unavailable +[phone] Kingsley Garcia MD Unavailable + [phone] Segundo Mcclelland MD Unavailable Master Shea PA-C Unavailable Allyssa Justice MD Unavailable +[phone] EsGenaro olmos MD Unavailable [phone] Master Shea PA-C Unavailable Sienna Guillermo DO Unavailable +[phone] Allyssa Justice MD Unavailable [phone] Declan Leavitt MD Unavailable Ugo Ochoa [...] AM CDT Legal Sex Female 3:29 AM ASSORTER LAUNDRY Gender Identity Female 05/26/2021 10:37 AM CDT [...] COVID-19? No / Unsure 01/10/2022 2:32 PM ASSORTER LAUNDRY documented as of this encounter Plan of Treatment Upcoming Encounters Date Type Department Care Team (Late st Contact Info) Description 02/20/2025 10:20 AM CDT Appointment [facility] Imaging [address] [facility] [address] [place] [address] Allyssa Justice MD [facility] [address] [place] [address] [place] [address] 02/27/2025 10:40 AM CDT Virtual Visit [facility] [address], [place] [address] [facility] [place] [phone] Allyssa Justice MD [facility] [address] [place] [address] [place] [address] documented as of this encounter Visit Diagnoses Not on filedocumented in this encounter Additional Health Concerns Infection Onset Date Last Indicated Resolved Time Rule Out COVID-19 10/27/2022 10/27/2022 10/27/2022 3:19 AM ASSORTER LAUNDRY Influenza 10/27/2022 10/27/2022 11/03/2022 11:4 0 PM ASSORTER LAUNDRY Rule Out COVID-19 01/04/2023 01/04/2023 01/04/2023 8:32 PM ASSORTER LAUNDRY Rule Out C-difficile 01/04/2023 01/04/2023 023 1:46 AM ASSORTER LAUNDRY Rule Out C-difficile 01/07/2023 01/07/2023 023 8:18 PM ASSORTER LAUNDRY Rule Out C-difficile 06/04/2023 06/04/2023 023 11:28 AM CDT Rule Out Eleonora auris 06/04/2023 06/04/202306/07 9:24 AM CDT ESBL 10/23/2023 05/26/2024 Rule Out COVID-19 11/10/2023 11/10/2023 11/10/2023 7:17 PM ASSORTER LAUNDRY Rule Out COVID-19 01/18/2024 01/18/2024 01/18/2024 8:53 PM ASSORTER LAUNDRY Rule Out COVID-19 01/28/2024 01/28/2024 01/28/2024 10:22 PM ASSORTER LAUNDRY Rule Out COVID-19 02/17/2024 02/17/2024 02/17/2024 5:07 PM CDT Rule Out COVID-19 04/22/2024 04/22/2024 04/23/2024 12:06 AM CDT Assessment Noted Time PHQ-9 Depression Total Score: 1 08/16/20 18 4:58 PM CDT documented as of this encounter Care Teams Pickler Helper Relationship Specialty Start [place] [address] [place] [address] PCP - General Family Medicine 08/17/21 10/26/22 [place] [address] [place] [address] PCP - General Family Medicine 10/27/22 10/27/22 No Ref-Primary, Physician PCP - General 11/06/22 04/21/23 [place] [address] [place] [address] PCP - General Family Medicine 04/22/23 [place] [address] [address] [place] [address] Assigned PCP 05/04/21 01/17/22 Sandy Cox APRN CNP [address] [place] [address] Assigned Heart and Vascular Provider 10/05/21 09/04/22 [place] [address] [place] [address] Assigned PCP 01/18/22 10/30/22 Sienna Guillermo DO [address] [place] [address] Assigned Heart and Vascular Provider 09/05/22 03/12/23 Mai Urena PA-C [address] [place] [address] Assigned PCP 10/31/22 01/22/23 [place] [address] [place] [address] Assigned Pain Medication Provider 12/07/22 [place] [address] [place] [address] Assigned PCP 01/23/23 [place] [address] [place] [address] Assigned Musculoskeletal Provider 01/23/23 09/19/24 Amy Montes De Oca, RN Clinic Hydrogen Treater 05/13/2305/17 Gregorio Dalton PA-C [address] [place] [address] Assigned Surgical Provider 05/22/23 07/20/24 Kingsley Garcia MD [address] [place] [address] Assigned Heart and Vascular Provider 08/07/23 [place] [address] [place] [address] Family Medicine 09/10/23 Master Shea PA-C [address] [place] [address] Physician Laminator Hand Gastroenterology 09/10/23 Allyssa Justice MD [facility] [address] [place] [address] Hematology & Oncology 12/10/23 Genaro Christian MD [address] [place] [address] 818075 Cardiovascular Disease 12/22/23 Master Shea PA-C [address] [place] [address] Assigned Gastroenterology Provider 12/23/23 Sienna Guillermo DO [address] [place] [address] Physician Cardiovascular Disease 01/18/24 Allyssa Justice MD [facility] [address] [place] [address] Assigned Cancer Care Provider 03/21/24 Declan Leavitt MD [address] [place] [address] [place] [id number] Assigned Surgical Provider 07/21/24 Ugo Ochoa MD [address] [place] [address] [id number] Assigned Neuroscience Provider 09/20/24 documented as of this encounter
--- OUTSIDE RECORDS SUMMARY | 2024-09-21 22:47 | XMS_ITS | Encounter Summary ---
Author Organization [facility] Address [address] [place] [address] Care Team Providers Care Test Data Developer Name Role Phone Segundo Mcclelland MD Unavailable [phone] Segundo Mcclelland MD Primary Care Provider + Sandy Cox APRN ROVER TENDER Unavailable Segundo Mcclelland MD Unavailable [phone] Sienna Guillermo DO Unavailable +[phone] Malia Dhillon MD Primary Care Provider [phone] No Ref-Primary, Physician Primary Care Provider Mai Urena PA-C Unavailable [phone] Segundo Mcclelland MD Unavailable + [phone] Segundo Mcclelland MD Unavailable + [phone] Qamar Jackson MD Unavailable Segundo Mcclelland MD Primary Care Provider + Amy Montes De Oca RN Unavailable [phone] Gregorio Dalton PA-C Unavailable [phone] Kingsley Garcia MD Unavailable + [phone] Segundo Mcclelland MD Unavailable +[phone] Master Shea PA-C Unavailable Allyssa Justice MD Unavailable [phone] AnahiGenaro MD Unavailable [phone] Master Shea PA-C Unavailable Sienna Guillermo DO Unavailable +[phone] Allyssa Justice MD Unavailable Declan Leavitt MD Unavailable Ugo Ochoa MD Unavailable Reason for Visit * Reason Onset Date Comments Refill Request 11/19/2021 Encounter Details Date Type Department Care Team (Late Contact Info) Description 11/19/2021 Refill [facility] [id number] [place] [address] [place] [address] [place] [address] Refill Request Social History Tobacco [...] AM CDT Legal Sex Female 3:29 AM EDUCATION SALES CONSULTANT Gender Identity Female 05/26/2021 10:37 AM CDT [...] Info) Description 02/20/2025 10:20 AM CDT Appointment [facility] Imaging [address] [facility] [address] [place] [phone] [facility] [address] [place] [address] [place] [address] 02/27/2025 10:40 AM CDT Virtual Visit [facility] [address], [place] [address] [facility] [place] [phone] [facility] [address] [place] [address] [place] [address] documented as of this encounter Visit Diagnoses Not on filedocumented in this encounter Additional Health Concerns Infection Onset Date Last Indicated Resolved Time Rule Out COVID-19 10/27/2022 10/27/2022 10/27/2022 3:19 AM EDUCATION SALES CONSULTANT Influenza 10/27/2022 10/27/2022 11/03/2022 11:4 0 PM EDUCATION SALES CONSULTANT Rule Out COVID-19 01/04/2023 01/04/2023 01/04/2023 8:32 PM EDUCATION SALES CONSULTANT Rule Out C-difficile 01/04/2023 01/04/2023 023 1:46 AM EDUCATION SALES CONSULTANT Rule Out C-difficile 01/07/2023 01/07/2023 023 8:18 PM EDUCATION SALES CONSULTANT Rule Out C-difficile 06/04/2023 06/04/2023 023 11:28 AM CDT Rule Out Eleonora auris 06/04/2023 06/04/202306/07 9:24 AM CDT ESBL 10/23/2023 05/26/2024 Rule Out COVID-19 11/10/2023 11/10/2023 11/10/2023 7:17 PM EDUCATION SALES CONSULTANT Rule Out COVID-19 01/18/2024 01/18/2024 01/18/2024 8:53 PM EDUCATION SALES CONSULTANT Rule Out COVID-19 01/28/2024 01/28/2024 01/28/2024 10:22 PM EDUCATION SALES CONSULTANT Rule Out COVID-19 02/17/2024 02/17/2024 02/17/2024 5:07 PM CDT Rule Out COVID-19 04/22/2024 04/22/2024 04/23/2024 12:06 AM CDT Assessment Noted Time PHQ-9 Depression Total Score: 1 08/16/20 18 4:58 PM CDT documented as of this encounter Care Teams Test Data Developer Relationship Specialty Start [place] [address] [place] [address] PCP - General Family Medicine 08/17/21 10/26/22 [place] [address] [place] [address] PCP - General Family Medicine 10/27/22 10/27/22 No Ref-Primary, Physician PCP - General 11/06/22 04/21/23 [place] [address] [address] [place] [address] PCP - General Family Medicine 04/22/23 [place] [address] [address] [place] [address] Assigned PCP 05/04/21 01/17/22 Sandy Cox APRN ROVER TENDER [address] [place] [address] Assigned Heart and Vascular Provider 10/05/21 09/04/22 [place] [address] [address] [place] [address] Assigned PCP 01/18/22 10/30/22 Borisrhona Sienna FinlyeDO [address] [place] [address] Assigned Heart and Vascular Provider 09/05/22 03/12/23 Mai Urena PA-C [address] [place] [address] Assigned PCP 10/31/22 01/22/23 [place] [address] [place] [address] Assigned Pain Medication Provider 12/07/22 [place] [address] [place] [address] Assigned PCP 01/23/23 [place] [address] [place] [address] Assigned Musculoskeletal Provider 01/23/23 09/19/24 Amy Montes De Oca, RN Clinic Airbrush Artist 05/13/2305/17 Gregorio Dalton PA-C [address] [place] [address] Assigned Surgical Provider 05/22/23 07/20/24 Kingsley Garcia MD [address] [place] [address] Assigned Heart and Vascular Provider 08/07/23 [place] [address] [place] [place] [address] Family Medicine 09/10/23 Matser Shea PA-C [address] [place] [place] [address] Physician Converting Operator Gastroenterology 09/10/[address] [facility] [address] [place] [address] [place] 5505[address] Hematology & Oncology 12/10/23 Genaro Christian MD [address] [place], [place] 8312[address] Cardiovascular Disease 12/22/23 Master Shea PA-C [address] [place] [address] Assigned Gastroenterology Provider 12/23/23 Sienna Guillermo DO [address] [place] [address] Physician Cardiovascular Disease 01/18/[address] [facility] [address] [place] [address] [place] 8[address] Assigned Cancer Care Provider 03/21/24 Declan Leavitt MD [address] [place] [address] [place] 390825 Assigned Surgical Provider 07/21/24 Ugo Ochoa MD [address] [place] [address] Assigned Neuroscience Provider 09/20/24 documented as of this encounter
--- OUTSIDE RECORDS SUMMARY | 2024-09-21 22:47 | XMS_ITS | Encounter Summary ---
Author Organization [facility] Address [address] [place] [address] Care Team Providers Care Team Primary Care Physician Name Role Phone Segundo Mcclelland MD Unavailable [phone] [facility] Primary Care Provide r Villa Santamaria PA-C Unavailable +[phone] Segundo Mcclelland MD Unavailable + [phone] Segundo Mcclelland MD Primary Care Provider + Sienna Guillermo DO Unavailable +[phone] Sandy Cox APRN, CNP Unavailable + Segundo Mcclelland MD Unavailable + [phone] Sienna Guillermo DO Unavailable +[phone] Malia Dhillon MD Primary Care Provider [phone] No Ref-Primary, Physician Primary Care Provider Mai Urena PA-C Unavailable [phone] Segundo Mcclelland MD Unavailable + [phone] Segundo Mcclelland MD Unavailable + [phone] Qamar Jackson MD Unavailable Segundo Mcclelland MD Primary Care Provider + Amy Montes De Oca RN Unavailable +[phone] Gregorio Dalton PA-C Unavailable +[phone] Kingsley Garcia MD Unavailable + [phone] Segundo Mcclelland MD Unavailable +[phone] Master Shea PA-C Unavailable Allyssa Justice MD Unavailable [phone] Genaro Christian MD Unavailable [phone] Master Shea PA-C Unavailable AjSienna stein Malia Unavailable +[phone] Allyssa Justice MD Unavailable [phone] Declan Leavitt MD Unavailable Ugo Ochoa MD Unavailable Reason for Visit * Reason Onset Date Comments MyChart Communication 10/30/2020 covid Encounter Details Date Type Department Care Team (Late st Contact Info) Description 10/30/2020 [facility] [address] [address] [place] [address] [place] [address] MyChart Communication (covid) Social History [...] AM CDT Legal Sex Female 3:29 AM INTERNAL REVIEW AND AUDIT COMPLIANCE Gender Identity Female 05/26/2021 10:37 AM CDT [...] Coronavirus / COVID-19? Yes 10/27/2020 1:02 PM INTERNAL REVIEW AND AUDIT COMPLIANCE documented as of this encounter Miscellaneous Notes * Telephone Encounter - Cherise Arredondo RN - 10/30/2020 1:43 PM CST Sent [employer] response, recommend virtual visit if questions or concerns, see encounter yesterday Cherise Arredondo RN, BSN Message handled by CLINIC NURSE. RNAL REVIEW AND AUDIT COMPLIANCE documented in this encounter Plan of Treatment Upcoming Encounters Date Type Department Care Team (Late st Contact Info) Description 02/20/2025 10:20 AM CDT Appointment [facility] [address] [place] [address] Allyssa Justice MD [facility] [address] [place] [address] [place] [address] 02/27/2025 10:40 AM CDT Virtual Visit [facility] [address], [address] [facility] [place] [address] Allyssa Justice MD [facility] [address] [place] [address] [place] [address] documented as of this encounter Visit Diagnoses Not on filedocumented in this encounter Additional Health Concerns Infection Onset Date Last Indicated Resolved Time Rule Out COVID-19 10/27/2020 10/27/2020 11/17/2020 11:39 PM INTERNAL REVIEW AND AUDIT COMPLIANCE Rule Out COVID-19 12/23/2020 12/24/2020 12/24/2020 2:08 AM INTERNAL REVIEW AND AUDIT COMPLIANCE Rule Out COVID-19 01/24/2021 01/24/2021 01/24/2021 9:18 PM INTERNAL REVIEW AND AUDIT COMPLIANCE Rule Out COVID-19 10/27/2022 10/27/2022 10/27/2022 3:19 AM INTERNAL REVIEW AND AUDIT COMPLIANCE Influenza 10/27/2022 10/27/2022 11/03/2022 11:4 0 PM INTERNAL REVIEW AND AUDIT COMPLIANCE Rule Out COVID-19 01/04/2023 01/04/2023 01/04/2023 8:32 PM INTERNAL REVIEW AND AUDIT COMPLIANCE Rule Out C-difficile 01/04/2023 01/04/2023 023 1:46 AM INTERNAL REVIEW AND AUDIT COMPLIANCE Rule Out C-difficile 01/07/2023 01/07/2023 023 8:18 PM INTERNAL REVIEW AND AUDIT COMPLIANCE Rule Out C-difficile 06/04/2023 06/04/2023 023 11:28 AM CDT Rule Out Eleonora auris 06/04/2023 06/04/202306/07 9:24 AM CDT ESBL 10/23/2023 05/26/2024 Rule Out COVID-19 11/10/2023 11/10/2023 11/10/2023 7:17 PM INTERNAL REVIEW AND AUDIT COMPLIANCE Rule Out COVID-19 01/18/2024 01/18/2024 01/18/2024 8:53 PM INTERNAL REVIEW AND AUDIT COMPLIANCE Rule Out COVID-19 01/28/2024 01/28/2024 01/28/2024 10:22 PM INTERNAL REVIEW AND AUDIT COMPLIANCE Rule Out COVID-19 02/17/2024 02/17/2024 02/17/2024 5:07 PM CDT Rule Out COVID-19 04/22/2024 04/22/2024 04/23/2024 12:06 AM CDT Assessment Noted Time PHQ-9 Depression Total Score: 1 08/16/20 18 4:58 PM CDT documented as of this encounter Care Teams Team Primary Care Physician Relationship Specialty Start Date End Date [facility] [place] [address] [place] [address] PCP - General 09/27/20 08/16/21 [place] [address] [address] [place] [address] PCP - General Family Medicine 08/17/21 10/26/22 [place] [address] [place] [address] PCP - General Family Medicine 10/27/22 10/27/22 No Ref-Primary, Physician PCP - General 11/06/22 04/21/23 [place] [address] [place] [address] PCP - General Family Medicine 04/22/23 [place] [address] [place] [address] Assigned PCP 03/17/20 03/15/21 Villa Santamaria PA-C [address] [place] [address] Assigned PCP 03/16/21 05/03/21 [place] [address] [place] [address] Assigned PCP 05/04/21 01/17/22 Sienna Guillermo DO [address] [place] [address] Assigned Heart and Vascular Provider 09/21/21 10/04/21 Sandy Cox APRN ENGRAVER COPPERPLATE [address] [place] [address] Assigned Heart and Vascular Provider 10/05/21 09/04/22 [place] [address] [place] [address] Assigned PCP 01/18/22 10/30/22 Sienna Guillermo DO [address] [place] [address] Assigned Heart and Vascular Provider 09/05/22 03/12/23 Mai Urena PA-C [address] [place] [address] Assigned PCP 10/31/22 01/22/23 [place] [address] [place] [address] Assigned Pain Medication Provider 12/07/22 [place] [address] [place] [address] Assigned PCP 01/23/23 [place] [address] [place] [address] Assigned Musculoskeletal Provider 01/23/23 09/19/24 Amy Montes De Oca, RN Clinic Freight Agent 05/13/2305/17 Gregorio Dalton PA-C [address] [place] [address] Assigned Surgical Provider 05/22/23 07/20/24 Kingsley Garcia MD [address] [place] [address] Assigned Heart and Vascular Provider 08/07/23 [place] [address] [address] [address] Family Medicine 09/10/23 Master Shea PA-C [address] [place] [address] Physician Counseling Specialist Gastroenterology 09/10/23 Allyssa Justice MD [facility] [address] [place] [address] [place] [address] Hematology & Oncology 12/10/23 Genaro Christian MD [address] [place] [address]7215 MD Cardiovascular Disease 12/22/23 Master Shea PA-C [address] [place] [address] Assigned Gastroenterology Provider 12/23/23 Sienna Guillermo DO [address] [place] [address] Physician Cardiovascular Disease 01/18/24 Allyssa Justice MD [facility] [address] [place] [address] [place] [address] Assigned Cancer Care Provider 03/21/24 Declan Leavitt MD [address] [facility] [address] [place] [address] Assigned Surgical Provider 07/21/24 Ugo Ochoa MD [address] [place], [place] [address] Assigned Neuroscience Provider 09/20/24 documented as of this encounter
--- OUTSIDE RECORDS SUMMARY | 2024-09-21 22:47 | XMS_ITS | Encounter Summary ---
Author Organization [facility] Address [address] [place] [address] Care Team Providers Care Business Case Analyst Name Role Phone Nimo Wetzel MD Primary Care Provider + Kin Waite MD Primary Care Provider [phone] [facility] Prov ider Uyen Palm MD Primary Care Provider [phone] Milady Oakes MD Primary Care Provider + [facility]ly [facility], [facility] Primary Care Provider [facility] Primary Care Pro vider No Ref-Primary, Physician Primary Care Provider [facility] Provide r Villa Santamaria PA-C Unavailable + Villa Santamaria PA-C Unavailable + Segundo Mcclelland MD Unavailable + Segundo Mcclelland MD Unavailable + No Ref-Primary, Physician Primary Care Provider [facility] Provide r Villa Santamaria-C Unavailable + Segundo Mcclelland MD Unavailable + Segundo Mcclelland MD Primary Care Provider + Sienna Guillermo DO Unavailable + FinaSeng zhaoSandylon Bhakta JOSE HAIRSTON Unavailable + Segundo Mcclelland MD Unavailable + Sienna Guillermo DO Unavailable + Malia Dhillon MD Primary Care Provider [phone] No Ref-Primary, Physician Primary Care Provider Mai Urena PA-C Unavailable + [phone] Segundo Mcclelland MD Unavailable + Segundo Mcclelland MD Unavailable + Qamar Jackson MD Unavailable Segundo Mcclelland MD Primary Care Provider + Amy Montes De Oca RN Unavailable [phone] Gregorio Dalton PA-C Unavailable [phone] Kingsley Garcia MD Unavailable +[phone] Segundo Mcclelland MD Unavailable + Master Shea-C Unavailable Allyssa Justice MD Unavailable +[phone] Genaro Christian MD Unavailable + Master Shea-C Unavailable Sienna Guillermo DO Unavailable + Allyssa Justice MD Unavailable [phone] Declan Leavitt MD Unavailable Ugo Ochoa MD Unavailable Encounter Details Date Type Department Care Team (Late st Contact Info) Description 12/17/2011 Orders Only [facility] [place] [address] [place] [phone] Caridad Garcia MD [address] [place] [address] [place] [id number] Social History Tobacco Use Types Packs/Day Years Used Date Smoking Tobacco: Never Alcohol Use Standard Drinks/Week Comments Not Asked 0 (1 standard drink = 0.6 oz pur e alcohol) not while Comments Yes Sex and Gender Information Value Date Recorded Sex Assigned at Female 05/26/2021 10:37 AM CDT Legal Sex Female 3:29 AM 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 [place] [facility] [address] [facility] [address] [place] [phone] Allyssa Justice MD [facility] [address] [address] [place] [id number] 02/27/2025 10:40 AM CDT Virtual Visit [facility] [address] [place] [address] [facility] [place] [phone] Allyssa Justice MD [facility] [address] [place] [address] [place] [id number] documented as of this encounter Visit Diagnoses Not on filedocumented in this encounter Additional Health Concerns Infection Onset Date Last Indicated Resolved Time Rule Out COVID-19 02/29/2020 02/29/2020 03/01/2020 9:51 PM CDT Rule Out COVID-19 05/05/2020 05/05/2020 05/06/2020 2:19 AM CDT Rule Out COVID-19 08/20/2020 08/20/2020 08/21/2020 10:31 PM CDT Rule Out COVID-19 10/27/2020 10/27/2020 11/17/2020 11:39 PM WINDOW GLAZIER HELPER Rule Out COVID-19 12/23/2020 12/24/2020 12/24/2020 2:08 AM WINDOW GLAZIER HELPER Rule Out COVID-19 01/24/2021 01/24/2021 01/24/2021 9:18 PM WINDOW GLAZIER HELPER Rule Out COVID-19 10/27/2022 10/27/2022 10/27/2022 3:19 AM WINDOW GLAZIER HELPER Influenza 10/27/2022 10/27/2022 11/03/2022 11:4 0 PM WINDOW GLAZIER HELPER Rule Out COVID-19 01/04/2023 01/04/2023 01/04/2023 8:32 PM WINDOW GLAZIER HELPER Rule Out C-difficile 01/04/2023 01/04/2023 023 1:46 AM WINDOW GLAZIER HELPER Rule Out C-difficile 01/07/2023 01/07/2023 023 8:18 PM WINDOW GLAZIER HELPER Rule Out C-difficile 06/04/2023 06/04/2023 023 11:28 AM CDT Rule Out Eleonora auris 06/04/2023 06/04/202306/07 9:24 AM CDT ESBL 10/23/2023 05/26/2024 Rule Out COVID-19 11/10/2023 11/10/2023 11/10/2023 7:17 PM WINDOW GLAZIER HELPER Rule Out COVID-19 01/18/2024 01/18/2024 01/18/2024 8:53 PM WINDOW GLAZIER HELPER Rule Out COVID-19 01/28/2024 01/28/2024 01/28/2024 10:22 PM WINDOW GLAZIER HELPER Rule Out COVID-19 02/17/2024 02/17/2024 02/17/2024 5:07 PM CDT Rule Out COVID-19 04/22/2024 04/22/2024 04/23/2024 12:06 AM CDT documented as of this encounter Care Teams Business Case Analyst Relationship Specialty Start Date End Date Nimo Wetzel MD PCP - General 11/02/11 04/17/12 Kin Waite MD PCP - General car racer 04/18/12 11/22/12 Practice, [address] [phone] PCP - General 11/23/12 11/25/13 Uyen Palm MD [address] [place] [id number] PCP - General car racer 11/26/13 09/02/14 Milady Oakes MD [address] [address] PCP - General Family Practice 09/03/14 09/20/15 [facility], [facility] [address] [place] [address] PCP - General 09/21/15 07/10/17 [facility] [address] [place], [place] [id number] PCP - General 07/11/17 01/19/18 No Ref-Primary, Physician PCP - General 01/20/18 04/30/18 [facility] [place] [address] PCP - General 05/01/18 09/24/20 Villa Santamaria PA-C [address] [place] [address] PCP - Assigned PCP 05/01/18 01/31/19 No Ref-Primary, Physician PCP - General 09/25/20 09/26/20 [facility] [place] [address] PCP - General 09/27/20 08/16/21 [place] [address] [address] [place] [address] PCP - General Family Medicine 08/17/21 10/26/22 [place] [address] [place] [address] PCP - General Family Medicine 10/27/22 10/27/22 No Ref-Primary, Physician PCP - General 11/06/22 04/21/23 [place] [address] [place] [address] PCP - General Family Medicine 04/22/23 Villa Santamaria PA-C [address] [place] [address] Assigned PCP 05/01/18 08/19/19 [place] [address] [place] [address] Assigned PCP 08/20/19 03/16/20 [place] [address] [place] [address] Assigned PCP 03/17/20 03/15/21 Villa Santamaria PA-C [address] [place] [address] Assigned PCP 03/16/21 05/03/21 [place] [address] [place] [address] Assigned PCP 05/04/21 01/17/22 Sienna Guillermo DO [address] [place] [address] Assigned Heart and Vascular Provider 09/21/21 10/04/21 Sandy Cox APRN CNP [address] [place] [address] Assigned Heart and Vascular Provider 10/05/21 09/04/22 [place] [address] [place] [address] Assigned PCP 01/18/22 10/30/22 Sienna Guillermo DO [address] [place] [address] Assigned Heart and Vascular Provider 09/05/22 03/12/23 Mai Urena PA-C [address] [place] [address] Assigned PCP 10/31/22 01/22/23 [place] [address] [address] [address] Assigned Pain Medication Provider 12/07/22 [place] [address] [address] [address] Assigned PCP 01/23/23 [place] [address] [place] [address] Assigned Musculoskeletal Provider 01/23/23 09/19/24 Amy Montes De Oca, RN Clinic Performance Specialist 05/13/2305/17 Gregorio Dalton PA-C [address] [place] [address] Assigned Surgical Provider 05/22/23 07/20/24 Kingsley Garcia MD [address] [place] [address] Assigned Heart and Vascular Provider 08/07/23 [place] [address] [address] [address] Family Medicine 09/10/23 Master Shea PA-C [address] [place] [address] Physician Administration Clerk Gastroenterology 09/10/23 Allyssa Justice MD [facility] [address] [place] [address] Hematology & Oncology 12/10/23 Genaro Christian MD [address] [place] [address] Cardiovascular Disease 12/22/23 Master Shea PA-C [address] [place] [address] Assigned Gastroenterology Provider 12/23/23 Sienna Guillermo DO [address] [place] [address] Physician Cardiovascular Disease 01/18/24 Allyssa Justice MD [facility] [address] [place] [address] Assigned Cancer Care Provider 03/21/24 Declan Leavitt MD [address] [place], [place] [address] Assigned Surgical Provider 07/21/24 Ugo Ochoa MD [address] [place] [id number] Assigned Neuroscience Provider 09/20/24 documented as of this encounter
--- OUTSIDE RECORDS SUMMARY | 2024-09-21 22:47 | XMS_ITS | Encounter Summary ---
Author Organization [facility] Address [facility] [place] [address] Care Team Providers Care Canning Machine Operator Name Role Phone [facility] Primary Care Provide r Villa Santamaria PA-C Unavailable + Villa Santamaria PA-C Unavailable + Segundo Mcclelland MD Unavailable + Segundo Mcclelland MD Unavailable + No Ref-Primary, Physician Primary Care Provider [facility] Primary Care Provide r Villa Santamaria PA-C Unavailable + Segundo Mcclelland MD Unavailable + Segundo Mcclelland MD Primary Care Provider + Sienna Guillermo DO Unavailable [phone] Sandy Cox APRN, CNP Unavailable + Segundo Mcclelland MD Unavailable + Sienna Guillermo DO Unavailable [phone] Malia Dhillon MD Primary Care Provider [phone] No Ref-Primary, Physician Primary Care Provider Mai Urena PA-C Unavailable [phone] Segundo Mcclelland MD Unavailable [phone] Segundo Mcclelland MD Unavailable + [phone] Qamar Jackson MD Unavailable Segundo Mcclelland MD Primary Care Provider + Amy Montes De Oca RN Unavailable [phone] Gregorio Dalton PA-C Unavailable [phone] Kingsley Garcia MD Unavailable + [phone] Segundo Mcclelland MD Unavailable [phone] Master Shea PA-C Unavailable Allyssa Justice MD Unavailable [phone] Genaro Christian MD Unavailable [phone] Master Shea PA-C Unavailable Sienna Guillermo DO Unavailable Allyssa Justice MD Unavailable [phone] Declan Leavitt MD Unavailable Ugo Ochoa MD Unavailable Encounter Details Date Type Department Care Team (Late st Contact Info) Description 05/17/2018 [facility] Medical Advice [address], [address] [place] [address] Villa Santamaria PA-C [address] [place] [address] Social History Tobacco Use Types Packs/Day Years Used Date Smoking Tobacco: Never Smokeless Tobacco: Never Alcohol Use Standard Drinks/Week Comments Yes 0 (1 standard drink = 0.6 oz pur e alcohol) occasional Comments No Sex and Gender Information Value Date Recorded Sex Assigned at Female 05/26/2021 10:37 AM CDT Legal Sex Female 3:29 AM JEWEL BEARING MAKER Gender Identity Female 05/26/2021 10:37 AM [...] 10:20 AM CDT Appointment [facility] [address] [address] [place] [phone] Allyssa Justice MD [facility] [address] [place] [address] 02/27/2025 10:40 AM CDT Virtual Visit [facility] [address] [address] [facility] [place] [phone] Allyssa Justice MD [facility] [address] [place] [address] documented as of this encounter Visit Diagnoses Not on filedocumented in this encounter Additional Health Concerns Infection Onset Date Last Indicated Resolved Time Rule Out COVID-19 02/29/2020 02/29/2020 03/01/2020 9:51 PM CDT Rule Out COVID-19 05/05/2020 05/05/2020 05/06/2020 2:19 AM CDT Rule Out COVID-19 08/20/2020 08/20/2020 08/21/2020 10:31 PM CDT Rule Out COVID-19 10/27/2020 10/27/2020 11/17/2020 11:39 PM JEWEL BEARING MAKER Rule Out COVID-19 12/23/2020 12/24/2020 12/24/2020 2:08 AM JEWEL BEARING MAKER Rule Out COVID-19 01/24/2021 01/24/2021 01/24/2021 9:18 PM JEWEL BEARING MAKER Rule Out COVID-19 10/27/2022 10/27/2022 10/27/2022 3:19 AM JEWEL BEARING MAKER Influenza 10/27/2022 10/27/2022 11/03/2022 11:4 0 PM JEWEL BEARING MAKER Rule Out COVID-19 01/04/2023 01/04/2023 01/04/2023 8:32 PM JEWEL BEARING MAKER Rule Out C-difficile 01/04/2023 01/04/2023 023 1:46 AM JEWEL BEARING MAKER Rule Out C-difficile 01/07/2023 01/07/2023 023 8:18 PM JEWEL BEARING MAKER Rule Out C-difficile 06/04/2023 06/04/2023 023 11:28 AM CDT Rule Out Eleonora auris 06/04/2023 06/04/202306/07 9:24 AM CDT ESBL 10/23/2023 05/26/2024 Rule Out COVID-19 11/10/2023 11/10/2023 11/10/2023 7:17 PM JEWEL BEARING MAKER Rule Out COVID-19 01/18/2024 01/18/2024 01/18/2024 8:53 PM JEWEL BEARING MAKER Rule Out COVID-19 01/28/2024 01/28/2024 01/28/2024 10:22 PM JEWEL BEARING MAKER Rule Out COVID-19 02/17/2024 02/17/2024 02/17/2024 5:07 PM CDT Rule Out COVID-19 04/22/2024 04/22/2024 04/23/2024 12:06 AM CDT Assessment Noted Time PHQ-9 Depression Total Score: 3 04/30/20 18 7:18 AM CDT documented as of this encounter Care Teams Canning Machine Operator Relationship Specialty Start Date End Date [facility] EXHIBIT [place] [address] PCP - General 05/01/18 09/24/20 Villa Santamaria PA-C [address] [place] [address] PCP - Assigned PCP 05/01/18 01/31/19 No Ref-Primary, Physician PCP - General 09/25/20 09/26/20 [facility] [address] [place] [address] PCP - General 09/27/20 08/16/21 [place] [address] [place] [address] PCP - General Family Medicine 08/17/21 10/26/22 [place] [address] [place] [address] PCP - General Family Medicine 10/27/22 10/27/22 No Ref-Primary, Physician PCP - General 11/06/22 04/21/23 [place] [address] [place] [address] PCP - General Family Medicine 04/22/23 Villa Santamaria [place]-C [address] [place] [address] Assigned PCP 05/01/18 08/19/19 [place] [address] [place] [address] Assigned PCP 08/20/19 03/16/20 [place] [address] [place] [address] Assigned PCP 03/17/20 03/15/21 Villa Santamaria PA-C [address] [place] [address] Assigned PCP 03/16/21 05/03/21 [place] [address] [place] [address] Assigned PCP 05/04/21 01/17/22 Sienna Guillermo DO [address] [place] [address] Assigned Heart and Vascular Provider 09/21/21 10/04/21 Sandy Cox APRN CNP [address] [place] [address] Assigned Heart and Vascular Provider 10/05/21 09/04/22 [place] [address] [place] [address] Assigned PCP 01/18/22 10/30/22 Sienna Guillermo DO [address] [place] [address] Assigned Heart and Vascular Provider 09/05/22 03/12/23 Mai Urena PA-C [address] [place] [address] Assigned PCP 10/31/22 01/22/23 [place] [address] [place] [address] Assigned Pain Medication Provider 12/07/22 [place] [address] [place], [place] [phone] Assigned PCP 01/23/23 [place] [address] [address] [place] [place] [address] Assigned Musculoskeletal Provider 01/23/23 09/19/24 Amy Montes De Oca, RN Clinic Public Health Physician 05/13/2305/17 Gregorio Dalton PA-C [address] [place] [address] Assigned Surgical Provider 05/22/23 07/20/24 Kingsley Garcia MD [address] [place] [address] Assigned Heart and Vascular Provider 08/07/23 [place] [address] [place] [address] Family Medicine 09/10/23 Master Shea PA-C [address] [facility] [address] Physician Superintendent Stevedoring Gastroenterology 09/10/23 Allyssa Justice MD [facility] [address] [place] [address] Hematology & Oncology 12/10/23 Genaro Christian MD [address] [place] [id number] Cardiovascular Disease 12/22/23 Master Shea PA-C [address] [facility] [address] Assigned Gastroenterology Provider 12/23/23 Sienna Guillermo DO [address] [place] [address] Physician Cardiovascular Disease 01/18/24 Allyssa Justice MD [facility] [address] [place] [address] Assigned Cancer Care Provider 03/21/24 Declan Leavitt MD [address] [place] [address] Assigned Surgical Provider 07/21/24 Ugo Ochoa MD [address] [place] [id number] Assigned Neuroscience Provider 09/20/24 documented as of this encounter
--- OUTSIDE RECORDS SUMMARY | 2024-09-21 22:47 | XMS_ITS | Encounter Summary ---
Author Organization [place] Address [address] [place] [address] Care Team Providers Care Lpn Home Health Name Role Phone Taylor Cardozo [facility] Primary Care Provider None [facility] Jennifer Montejo MD Primary Care Provider [phone] Nimo Wetzel MD Primary Care Provider + Kin Waite MD Primary Care Provider [phone] [facility] Primary Care Prov ider Uyen Palm MD Primary Care Provider [phone] Milady Oakes MD Primary Care Provider + [facility] Primary Care Provider [facility] Primary Care Pro vider No Ref-Primary, Physician Primary Care Provider [facility] Care Provide r Villa Santamaria PA-C Unavailable + Villa Santamaria PA-C Unavailable + Segundo Mcclelland MD Unavailable + Segundo Mcclelland MD Unavailable + No Ref-Primary, Physician Primary Care Provider [facility] Primary Care Provide r Villa SantamariaC Unavailable +[phone] Segundo Mcclelland MD Unavailable + Segundo Mcclelland MD Primary Care Provider + Sienna Guillermo DO Unavailable + Sandy Cox APRN ANILINE PRESS WORKER Unavailable + Segundo Mcclelland MD Unavailable + Sienna Guillermo DO Unavailable +[phone] Malia Dhillon MD Primary Care Provider [phone] No Ref-Primary, Physician Primary Care Provider Mai UrenaC Unavailable [phone] Segundo Mcclelland MD Unavailable + Segundo Mcclelland MD Unavailable + Qamar Jackson MD Unavailable Segundo Mcclelland MD Primary Care Provider + Amy Montes De Oca RN Unavailable +[phone] Gregorio Dalton-C Unavailable + [phone] Kingsley Garcia MD Unavailable +[phone] Segundo Mcclelland MD Unavailable + Master Shea PA-C Unavailable Allyssa Justice MD Unavailable [phone] Genaro Christian MD Unavailable [phone] Master Shea-C Unavailable Sienna Guillermo DO Unavailable [phone] Allyssa Justice MD Unavailable [phone] Declan Leavitt MD Unavailable Ugo Ochoa MD Unavailable Encounter Details Date Type Department Care Team (Late st Contact Info) Description 09/26/2009 [facility] [address] [facility] [place] [address] Bess Brito MD [address] [place], [place] [phone] [facility] Social History Tobacco Use Types Packs/Day Years Used Date Smoking Tobacco: Never Passive Smoke Exposure: Never Smokeless Tobacco: Never Alcohol Use Standard Drinks/Week Comments Not Currently 0 (1 standard drink = 0.6 oz pur e alcohol) none for 1 year Comments No Sex and Gender Information Value Date Recorded Sex Assigned at Female 05/26/2021 10:37 AM CDT Legal Sex Female 3:29 AM BATTALION CHIEF Gender Identity Female 05/26/2021 10:37 AM [...] 02/20/2025 10:20 AM CDT Appointment [facility] Imaging [address] [facility] [address] [place] [phone] Allyssa Justice MD [facility] [address] [place] [address] [place] [address] 02/27/2025 10:40 AM CDT Virtual Visit [facility] [address], [place] [address] [facility] Medical Ctr [place] [phone] Allyssa Justice MD [facility] [address] [place] [address] documented as of this encounter Visit Diagnoses Diagnosis [facility]- Primary documented in this encounter Additional Health Concerns Infection Onset Date Last Indicated Resolved Time Rule Out COVID-19 02/29/2020 02/29/2020 03/01/2020 9:51 PM CDT Rule Out COVID-19 05/05/2020 05/05/2020 05/06/2020 2:19 AM CDT Rule Out COVID-19 08/20/2020 08/20/2020 08/21/2020 10:31 PM CDT Rule Out COVID-19 10/27/2020 10/27/2020 11/17/2020 11:39 PM BATTALION CHIEF Rule Out COVID-19 12/23/2020 12/24/2020 12/24/2020 2:08 AM BATTALION CHIEF Rule Out COVID-19 01/24/2021 01/24/2021 01/24/2021 9:18 PM BATTALION CHIEF Rule Out COVID-19 10/27/2022 10/27/2022 10/27/2022 3:19 AM BATTALION CHIEF Influenza 10/27/2022 10/27/2022 11/03/2022 11:4 0 PM BATTALION CHIEF Rule Out COVID-19 01/04/2023 01/04/2023 01/04/2023 8:32 PM BATTALION CHIEF Rule Out C-difficile 01/04/2023 01/04/2023 023 1:46 AM BATTALION CHIEF Rule Out C-difficile 01/07/2023 01/07/2023 023 8:18 PM BATTALION CHIEF Rule Out C-difficile 06/04/2023 06/04/2023 023 11:28 AM CDT Rule Out Eleonora auris 06/04/2023 06/04/202306/07 9:24 AM CDT ESBL 10/23/2023 05/26/2024 Rule Out COVID-19 11/10/2023 11/10/2023 11/10/2023 7:17 PM BATTALION CHIEF Rule Out COVID-19 01/18/2024 01/18/2024 01/18/2024 8:53 PM BATTALION CHIEF Rule Out COVID-19 01/28/2024 01/28/2024 01/28/2024 10:22 PM BATTALION CHIEF Rule Out COVID-19 02/17/2024 02/17/2024 02/17/2024 5:07 PM CDT Rule Out COVID-19 04/22/2024 04/22/2024 04/23/2024 12:06 AM CDT documented as of this encounter Care Teams Lpn Home Health Relationship Specialty Start Date End Date Taylor Cardozo APRN ANILINE PRESS WORKER [address] [place] [address] PCP - General 01/11/04 09/22/10 None PCP - General 09/23/10 09/02/11 Jennifer Escobedo MD [address] [place] [address] PCP - General performing arts road manager 09/03/11 11/01/11 Nimo Wetzel MD [address] [place] [address] PCP - General 11/02/11 04/17/12 Kin Waite MD [address] [facility] [address] [place] [address] PCP - General performing arts road manager 04/18/12 11/22/12 [facility], [address], [facility] [address] [place] [phone] PCP - General 11/23/12 11/25/13 Uyen Palm MD [address] [facility] [address] [place], [place] [phone] PCP - General performing arts road manager 11/26/13 09/02/14 Milady Oakes MD [facility] [address] [place] [address] PCP - General Family Practice 09/03/14 09/20/15 [facility], [facility] [address] [place] [address] PCP - General 09/21/15 07/10/17 [facility] [address] [place] [address] PCP - General 07/11/17 01/19/18 No Ref-Primary, Physician PCP - General 01/20/18 04/30/[address] [facility] [place] [address] PCP - General 05/01/18 09/24/20 Villa Santamaria PA-C [address] [place] [address] PCP - Assigned PCP 05/01/18 01/31/19 No Ref-Primary, Physician PCP - General 09/25/20 09/26/[address] [facility] [place] [address] PCP - General 09/27/20 08/16/21 [place] [address] [place] [address] PCP - General Family Medicine 08/17/21 10/26/22 [place] [address] [place] [address] PCP - General Family Medicine 10/27/22 10/27/22 No Ref-Primary, Physician PCP - General 11/06/22 04/21/23 [place] [address] [place] [address] PCP - General Family Medicine 04/22/23 Villa Santamaria PA-C [address] [place] [address] Assigned PCP 05/01/18 08/19/19 [place] [address] [place] [address] Assigned PCP 08/20/19 03/16/20 [place] [address] [place] [address] Assigned PCP 03/17/20 03/15/21 Villa Santamaria PA-C [address] [place] [address] Assigned PCP 03/16/21 05/03/21 [place] [address] [place] [address] Assigned PCP 05/04/21 01/17/22 Sienna Guillermo DO [address] [place] [address] Assigned Heart and Vascular Provider 09/21/21 10/04/21 Sandy Cox APRN CNP [address] [place] [address] Assigned Heart and Vascular Provider 10/05/21 09/04/22 [place] [address] [place] [address] Assigned PCP 01/18/22 10/30/22 Sienna Guillermo DO [address] [facility] [address] [place] [address] Assigned Heart and Vascular Provider 09/05/22 03/12/23 Mai Urena PA-C [address] [facility] [place] [address] Assigned PCP 10/31/22 01/22/23 [place] [address] [place] [address] Assigned Pain Medication Provider 12/07/22 [place] [address] [place] [address] Assigned PCP 01/23/23 [place] [address] [place] [address] Assigned Musculoskeletal Provider 01/23/23 09/19/24 Amy Montes De Oca RN Clinic Elevator Conductor 05/13/2305/17 Gregroio Dalton PA-C [address] [place] [address] Assigned Surgical Provider 05/22/23 07/20/24 Kingsley Garcia MD [address] [place] [address] Assigned Heart and Vascular Provider 08/07/23 [place] [address] [place] [place] [address] Family Medicine 09/10/23 Master Shea PA-C [address] [place] [address] Physician Biodiesel Process Control Technician Gastroenterology 09/10/23 Allyssa Justice MD [facility] [address] [address] [place] [address] Hematology & Oncology 12/10/23 Geanro Christian MD [address] [place] [id number] Cardiovascular Disease 12/22/23 Master Shea PA-C [address] [place] [address] Assigned Gastroenterology Provider 12/23/23 Sienna Guillermo DO [address] [place] [address] Physician Cardiovascular Disease 01/18/24 Allyssa Justice MD [facility] [address] [place] [address] Assigned Cancer Care Provider 03/21/24 Declan Leavitt MD [address] [place] [address] Assigned Surgical Provider 07/21/24 Ugo Ochoa MD [address] [place], [place] [address] Assigned Neuroscience Provider 09/20/24 documented as of this encounter
--- OUTSIDE RECORDS SUMMARY | 2024-09-21 22:47 | XMS_ITS | Encounter Summary ---
Author Organization [place] Address [address] [place] [address] Care Team Providers Care Sunglass Clip Attacher Name Role Phone Taylor Cardozo [facility] Primary Care Provider None Primary Care Provider [facility] Jennifer Montejo MD Primary Care Provider [phone] Nimo Wetzel MD Primary Care Provider + Kin Waite MD Primary Care Provider [phone] [facility] Primary Care Prov ider Uyen Palm MD Primary Care Provider [phone] Milady Oakes MD Primary Care Provider + [facility] Primary Care Provider [facility] Primary Care Pro vider No Ref-Primary, Physician Primary Care Provider [facility] Care Provide r Villa Santamaria PA-C Unavailable + Villa Santamaria PA-C Unavailable + Segundo Mcclelland MD Unavailable + Segundo Mcclelland MD Unavailable + No Ref-Primary, Physician Primary Care Provider [facility] Primary Care Provide r Villa SantamariaC Unavailable +[phone] Segundo Mcclelland MD Unavailable + Segundo Mcclelland MD Primary Care Provider + Sienna Guillermo DO Unavailable + Sandy Cox APRN SIGNS SALES REPRESENTATIVE Unavailable + Segundo Mcclelland MD Unavailable + Sienna Guillermo DO Unavailable [phone] Malia Dhillon MD Primary Care Provider [phone] No Ref-Primary, Physician Primary Care Provider Mai UrenaC Unavailable [phone] Segundo Mcclelland MD Unavailable + Segundo Mcclelland MD Unavailable + Qamar Jackson MD Unavailable Segundo Mcclelland MD Primary Care Provider + Amy Montes De Oca RN Unavailable [phone] Gregorio Dalton-C Unavailable + [phone] Kingsley Garcia MD Unavailable [phone] Segundo Mcclelland MD Unavailable + Master Shea PA-C Unavailable Allyssa Justice MD Unavailable [phone] Genaro Christian MD Unavailable [phone] Master Shea-C Unavailable Sienna Guillermo DO Unavailable [phone] Allyssa Justice MD Unavailable [phone] Declan Leavitt MD Unavailable Ugo Ochoa MD Unavailable Reason for Visit * Reason Onset Date Comments Refill Request 02/26/2009 CYCLOBENZAPRINE 10MG AND PERCOCET 5/325MG Encounter Details Date Type Department Care Team (Late st Contact Info) Description 02/26/[address] [address] None Refill Request (CYCLOBENZAPRINE 10MG AND PERCOCET 5/325MG) Social History Tobacco Use Types Packs/Day Years Used Date Smoking Tobacco: Never Alcohol Use Standard Drinks/Week Comments No 0 (1 standard drink = 0.6 oz pur e alcohol) not while Comments No Sex and Gender Information Value Date Recorded Sex Assigned at Female 05/26/2021 10:37 AM CDT Legal Sex Female 3:29 AM DISTRIBUTION TECHNICIAN Gender Identity Female 05/26/2021 10:37 AM [...] meet criteria for med refill by RN protocol. Jennifer Campo RN * Telephone Encounter - Jeovanny Dominguez - 02/26/2009 9:31 AM CDT LAST FILLED ON 02/15/09 PLEASE WALK OVER TO PHARMACY AND WE WILL CALL WHEN READY JEOVANNY LORETA-METAL CONTROL WORKER documented in this encounter Plan of Treatment Upcoming Encounters Date Type Department Care Team (Late st Contact Info) Description 02/20/2025 10:20 AM CDT Appointment [facility] Imaging [address] [place] [address] [place] [address] Allyssa Justice MD [facility] [address] [place] [address] [place] [address] 02/27/2025 10:40 AM CDT Virtual Visit [facility] [address] [address] [facility] Medical Ctr [place] [address] Allyssa Justice MD [facility] [address] [place] [address] documented as of this encounter Visit Diagnoses Diagnosis Lumbar back pain- Primary Lumbago documented in this encounter Additional Health Concerns Infection Onset Date Last Indicated Resolved Time Rule Out COVID-19 02/29/2020 02/29/2020 03/01/2020 9:51 PM CDT Rule Out COVID-19 05/05/2020 05/05/2020 05/06/2020 2:19 AM CDT Rule Out COVID-19 08/20/2020 08/20/2020 08/21/2020 10:31 PM CDT Rule Out COVID-19 10/27/2020 10/27/2020 11/17/2020 11:39 PM DISTRIBUTION TECHNICIAN Rule Out COVID-19 12/23/2020 12/24/2020 12/24/2020 2:08 AM DISTRIBUTION TECHNICIAN Rule Out COVID-19 01/24/2021 01/24/2021 01/24/2021 9:18 PM DISTRIBUTION TECHNICIAN Rule Out COVID-19 10/27/2022 10/27/2022 10/27/2022 3:19 AM DISTRIBUTION TECHNICIAN Influenza 10/27/2022 10/27/2022 11/03/2022 11:4 0 PM DISTRIBUTION TECHNICIAN Rule Out COVID-19 01/04/2023 01/04/2023 01/04/2023 8:32 PM DISTRIBUTION TECHNICIAN Rule Out C-difficile 01/04/2023 01/04/2023 023 1:46 AM DISTRIBUTION TECHNICIAN Rule Out C-difficile 01/07/2023 01/07/2023 023 8:18 PM DISTRIBUTION TECHNICIAN Rule Out C-difficile 06/04/2023 06/04/2023 023 11:28 AM CDT Rule Out Eleonora auris 06/04/2023 06/04/202306/07 9:24 AM CDT ESBL 10/23/2023 05/26/2024 Rule Out COVID-19 11/10/2023 11/10/2023 11/10/2023 7:17 PM DISTRIBUTION TECHNICIAN Rule Out COVID-19 01/18/2024 01/18/2024 01/18/2024 8:53 PM DISTRIBUTION TECHNICIAN Rule Out COVID-19 01/28/2024 01/28/2024 01/28/2024 10:22 PM DISTRIBUTION TECHNICIAN Rule Out COVID-19 02/17/2024 02/17/2024 02/17/2024 5:07 PM CDT Rule Out COVID-19 04/22/2024 04/22/2024 04/23/2024 12:06 AM CDT documented as of this encounter Care Teams Sunglass Clip Attacher Relationship Specialty Start Date End Date Taylor Cardozo APRN SIGNS SALES REPRESENTATIVE [address] [place] [address] PCP - General 01/11/04 09/22/10 None PCP - General 09/23/10 09/02/11 Jennifer Escobedo MD [address] [place] [address] [place] [address] PCP - General learning and development coordinator 09/03/11 11/01/11 Nimo Wetzel MD [address] [facility] [address] [place] [address] PCP - General 11/02/11 04/17/12 Kin Waite MD [address] [facility] [address] [place] [address] PCP - General learning and development coordinator 04/18/12 11/22/12 Practice, [address] [phone] PCP - General 11/23/12 11/25/13 Uyen Palm MD [address] [place] [phone] PCP - General learning and development coordinator 11/26/13 09/02/14 Milady Oakes MD [facility] [id number] [place] [address] PCP - General Family Practice 09/03/14 09/20/15 [facility] [address] [place] [address] PCP - General 09/21/15 07/10/17 [facility] [address] [place], [place] [phone] PCP - General 07/11/17 01/19/18 No Ref-Primary, Physician PCP - General 01/20/18 04/30/[address] [address] PCP - General 05/01/18 09/24/20 Villa Santamaria PA-C [address] [place] [address] PCP - Assigned PCP 05/01/18 01/31/19 No Ref-Primary, Physician PCP - General 09/25/20 09/26/20 [facility] [address] [place] [address] PCP - General 09/27/20 08/16/21 [place] [address] [place] [address] PCP - General Family Medicine 08/17/21 10/26/22 [place] [address] [place] [address] PCP - General Family Medicine 10/27/22 10/27/22 No Ref-Primary, Physician PCP - General 11/06/22 04/21/23 [place] [address] [place] [address] PCP - General Family Medicine 04/22/23 Villa Santamaria PA-C [address] [place] [address] Assigned PCP 05/01/18 08/19/19 [place] [address] [place] [address] Assigned PCP 08/20/19 03/16/20 [place] [address] [place] [address] Assigned PCP 03/17/20 03/15/21 Villa Santamaria PA-C [address] [place] [address] Assigned PCP 03/16/21 05/03/21 [place] [address] [place] [address] Assigned PCP 05/04/21 01/17/22 Sienna Guillermo DO [address] [place] [address] Assigned Heart and Vascular Provider 09/21/21 10/04/21 Sandy Cox APRN CNP [address] [place] [address] Assigned Heart and Vascular Provider 10/05/21 09/04/22 [place] [address] [place] [address] Assigned PCP 01/18/22 10/30/22 Sienna Guillermo DO [address] [place] [address] Assigned Heart and Vascular Provider 09/05/22 03/12/23 Mai Urena PA-C [address] [place] [address] Assigned PCP 10/31/22 01/22/23 [place] [address] [place] [address] Assigned Pain Medication Provider 12/07/22 [place] [address] [place], [place] [address] Assigned PCP 01/23/23 [place] [address] [address] [place] [address] Assigned Musculoskeletal Provider 01/23/23 09/19/24 Amy Montes De Oca, RN Clinic Auto Wrecker 05/13/2305/17 Gregorio Dalton PA-C [address] [place] [address] Assigned Surgical Provider 05/22/23 07/20/24 Kingsley Garcia MD [address] [place] [address] Assigned Heart and Vascular Provider 08/07/23 [place] [address] [place] [address] Family Medicine 09/10/23 Master Shea PA-C [address] [facility] [address] Physician Project Coordinator Rn Gastroenterology 09/10/23 Allyssa Justice MD [facility] [address] [place] [address] Hematology & Oncology 12/10/23 Genaro Christian MD [address] [place] [address] Cardiovascular Disease 12/22/23 Master Shea PA-C [address] [facility] [address] Assigned Gastroenterology Provider 12/23/23 Sienna Guillermo DO [address] [place] [address] Physician Cardiovascular Disease 01/18/24 Allyssa Justice MD [facility] [address] [place] [address] Assigned Cancer Care Provider 03/21/24 Declan Leavitt MD [address] [place] [address] Assigned Surgical Provider 07/21/24 Ugo Ochoa MD [address] [place] [address]697[address] Assigned Neuroscience Provider 09/20/24 documented as of this encounter
--- OUTSIDE RECORDS SUMMARY | 2024-09-21 22:47 | XMS_ITS | Encounter Summary ---
Author Organization [facility] Address [address] [place] [address] Care Team Providers Care Multi Line Claims Adjuster Name Role Phone Segundo Mcclelland MD Unavailable [phone] Segundo Mcclelland MD Primary Care Provider + Sienna Guillermo DO Unavailable +[phone] Sandy Cox APRN INSTRUCTIONAL TECHNOLOGY COACH Unavailable + Segundo Mcclelland MD Unavailable + [phone] Sienna Guillermo DO Unavailable +[phone] Malia Dhillon MD Primary Care Provider +[phone] No Ref-Primary, Physician Primary Care Provider Mai Urena PA-C Unavailable + [phone] Segundo Mcclelland MD Unavailable + [phone] Segundo Mcclelland MD Unavailable + [phone] Qamar Jackson MD Unavailable Segundo Mcclelland MD Primary Care Provider + Amy Montes De Oca RN Unavailable +[phone] Gregorio Dalton PA-C Unavailable +[phone] Kingsley Garcia MD Unavailable + [phone] Segundo Mcclelland MD Unavailable +[phone] Master Shea PA-C Unavailable Allyssa Justice MD Unavailable [phone] Genaro Christian MD Unavailable + [phone] Master Shea PA-C Unavailable Sienna Guillermo Unavailable +[phone] Allyssa Justice MD Unavailable [phone] Declan Leavitt MD Unavailable Ugo Ochoa [...] AM CDT Legal Sex Female 3:29 AM AVIATION PROJECT ENGINEER Gender Identity Female 05/26/2021 10:37 AM [...] Contact Info) Description 02/20/2025 10:20 AM CDT [facility] [address] [place] [address] Allyssa Justice MD [facility] [address] [place] [address] [place] 838385 02/27/2025 10:40 AM CDT Virtual Visit [facility] [address], [place] [address] [facility] Medical Ctr [place] [phone] Allyssa Justice MD [facility] [address] [place] [address] [place] [address] documented as of this encounter Visit Diagnoses Not on filedocumented in this encounter Additional Health Concerns Infection Onset Date Last Indicated Resolved Time Rule Out COVID-19 10/27/2022 10/27/2022 10/27/2022 3:19 AM AVIATION PROJECT ENGINEER Influenza 10/27/2022 10/27/2022 11/03/2022 11:4 0 PM AVIATION PROJECT ENGINEER Rule Out COVID-19 01/04/2023 01/04/2023 01/04/2023 8:32 PM AVIATION PROJECT ENGINEER Rule Out C-difficile 01/04/2023 01/04/2023 023 1:46 AM AVIATION PROJECT ENGINEER Rule Out C-difficile 01/07/2023 01/07/2023 023 8:18 PM AVIATION PROJECT ENGINEER Rule Out C-difficile 06/04/2023 06/04/2023 023 11:28 AM CDT Rule Out Eleonora auris 06/04/2023 06/04/202306/07 9:24 AM CDT ESBL 10/23/2023 05/26/2024 Rule Out COVID-19 11/10/2023 11/10/2023 11/10/2023 7:17 PM AVIATION PROJECT ENGINEER Rule Out COVID-19 01/18/2024 01/18/2024 01/18/2024 8:53 PM AVIATION PROJECT ENGINEER Rule Out COVID-19 01/28/2024 01/28/2024 01/28/2024 10:22 PM AVIATION PROJECT ENGINEER Rule Out COVID-19 02/17/2024 02/17/2024 02/17/2024 5:07 PM CDT Rule Out COVID-19 04/22/2024 04/22/2024 04/23/2024 12:06 AM CDT Assessment Noted Time PHQ-9 Depression Total Score: 1 08/16/20 18 4:58 PM CDT documented as of this encounter Care Teams Multi Line Claims Adjuster Relationship Specialty Start [place] [address] [address] [place] [address] PCP - General Family Medicine 08/17/21 10/26/22 [place] [address] [place] [address] PCP - General Family Medicine 10/27/22 10/27/22 No Ref-Primary, Physician PCP - General 11/06/22 04/21/23 [place] [address] [address] [address] PCP - General Family Medicine 04/22/23 [place] [address] [address] [address] Assigned PCP 05/04/21 01/17/22 Sienna Guillermo DO [address] [facility] [address] [place] [address] Assigned Heart and Vascular Provider 09/21/21 10/04/21 Sandy Cox APRN CNP [address] [place] [address] Assigned Heart and Vascular Provider 10/05/21 09/04/22 [place] [address] [place] [address] Assigned PCP 01/18/22 10/30/22 Sienna Guillermo DO [address] [place] [address] Assigned Heart and Vascular Provider 09/05/22 03/12/23 Mai Urena PA-C [address] [place] 171143 Assigned PCP 10/31/22 01/22/23 [place] [address] [place] [address] Assigned Pain Medication Provider 12/07/22 [place] [address] [place] [address] Assigned PCP 01/23/23 [place] [address] [place] [address] Assigned Musculoskeletal Provider 01/23/23 09/19/24 Amy Montes De Oca, RN Clinic Casket Assembler Metal 05/13/2305/17 Gregorio Dalton PA-C [address] [place] [address] Assigned Surgical Provider 05/22/23 07/20/24 Kingsley Garcia MD [address] [place] [address] Assigned Heart and Vascular Provider 08/07/23 [place] [address] [place] [address] Family Medicine 09/10/23 Master Shea PA-C [address] [place] [place] [address] Physician Folder Machine Operator Gastroenterology 09/10/23 Allyssa Justice MD [facility] [address] [place] [address] Hematology & Oncology 12/10/23 Genaro Christian MD [address] [place] [address] 072975 Cardiovascular Disease 12/22/23 Master Shea PA-C [address] [place] [place] [address] Assigned Gastroenterology Provider 12/23/23 Sienna Guillermo DO [address] [place] [address] Physician Cardiovascular Disease 01/18/24 Allyssa Justice MD [facility] [address] [place] [address] Assigned Cancer Care Provider 03/21/24 Declan Leavitt MD [address] [facility] [address] [place] [address] Assigned Surgical Provider 07/21/24 Ugo Ochoa MD [address] [place], [place] 498585 Assigned Neuroscience Provider 09/20/24 documented as of this encounter
--- OUTSIDE RECORDS SUMMARY | 2024-09-21 22:47 | XMS_ITS | Encounter Summary ---
Author Organization [place] Address [address] [place] [address] Care Team Providers Care Board Certified Behavioral Analyst Name Role Phone Segundo Mcclelland MD Unavailable [phone] [facility] Primary Care Provide r Villa Santamaria PA-C Unavailable +[phone] Segundo Mcclelland MD Unavailable + [phone] Segundo Mcclelland MD Primary Care Provider + Sienna Guillermo DO Unavailable +[phone] Sandy Cox APRN, CNP Unavailable + Segundo Mcclelland MD Unavailable + [phone] Sienna Guillermo DO Unavailable +[phone] Malia Dhillon MD Primary Care Provider +[phone] No Ref-Primary, Physician Primary Care Provider Mai Urena PA-C Unavailable +[phone] Segundo Mcclelland MD Unavailable + [phone] Segundo Mcclelland MD Unavailable + [phone] Qamar Jackson MD Unavailable Segundo Mcclelland MD Primary Care Provider + Amy Montes De Oca RN Unavailable +[phone] Gregorio Dalton PA-C Unavailable +[phone] Kingsley Garcia MD Unavailable + [phone] Segundo Mcclelland MD Unavailable +[phone] Master Shea PA-C Unavailable Allyssa Justice MD Unavailable [phone] Genaro Christian MD Unavailable + [phone] Master Shea PA-C Unavailable Sienna Guillermo DO Unavailable +[phone] Allyssa Justice MD Unavailable [phone] Declan Leavitt MD Unavailable Ugo Ochoa MD Unavailable Encounter Details Date Type Department Care Team (Late st Contact Info) Description 10/31/2020 [facility] [address] [address] Jena Jeronimo RN Social History [...] AM CDT Legal Sex Female 3:29 AM PHARMACY TECHNICIAN INPATIENT Gender Identity Female 05/26/2021 10:37 AM CDT [...] Coronavirus / COVID-19? Yes 10/27/2020 1:02 PM PHARMACY TECHNICIAN INPATIENT documented as of this encounter Plan of Treatment Upcoming Encounters Date Type Department Care Team (Late st Contact Info) Description 02/20/2025 10:20 AM CDT Appointment [facility] Imaging [address] [place] [address] Allyssa Justice MD [facility] [address] [place] [address] [place] [address] 02/27/2025 10:40 AM CDT Virtual Visit [place] [address], [address] [address] [facility] Medical Ctr [place] [phone] Allyssa Justice MD [facility] [address] [place] [address] [place] [address]05485 documented as of this encounter Visit Diagnoses Not on filedocumented in this encounter Additional Health Concerns Infection Onset Date Last Indicated Resolved Time Rule Out COVID-19 10/27/2020 10/27/2020 11/17/2020 11:39 PM PHARMACY TECHNICIAN INPATIENT Rule Out COVID-19 12/23/2020 12/24/2020 12/24/2020 2:08 AM PHARMACY TECHNICIAN INPATIENT Rule Out COVID-19 01/24/2021 01/24/2021 01/24/2021 9:18 PM PHARMACY TECHNICIAN INPATIENT Rule Out COVID-19 10/27/2022 10/27/2022 10/27/2022 3:19 AM PHARMACY TECHNICIAN INPATIENT Influenza 10/27/2022 10/27/2022 11/03/2022 11:4 0 PM PHARMACY TECHNICIAN INPATIENT Rule Out COVID-19 01/04/2023 01/04/2023 01/04/2023 8:32 PM PHARMACY TECHNICIAN INPATIENT Rule Out C-difficile 01/04/2023 01/04/2023 023 1:46 AM PHARMACY TECHNICIAN INPATIENT Rule Out C-difficile 01/07/2023 01/07/2023 023 8:18 PM PHARMACY TECHNICIAN INPATIENT Rule Out C-difficile 06/04/2023 06/04/2023 072 023 11:28 AM CDT Rule Out Eleonora auris 06/04/2023 06/04/202306/07 9:24 AM CDT ESBL 10/23/2023 05/26/2024 Rule Out COVID-19 11/10/2023 11/10/2023 11/10/2023 7:17 PM PHARMACY TECHNICIAN INPATIENT Rule Out COVID-19 01/18/2024 01/18/2024 01/18/2024 8:53 PM PHARMACY TECHNICIAN INPATIENT Rule Out COVID-19 01/28/2024 01/28/2024 01/28/2024 10:22 PM PHARMACY TECHNICIAN INPATIENT Rule Out COVID-19 02/17/2024 02/17/2024 02/17/2024 5:07 PM CDT Rule Out COVID-19 04/22/2024 04/22/2024 04/23/2024 12:06 AM CDT Assessment Noted Time PHQ-9 Depression Total Score: 1 08/16/20 18 4:58 PM CDT documented as of this encounter Care Teams Board Certified Behavioral Analyst Relationship Specialty Start Date End Date [facility], [facility] LEAN MANUFACTURING [place] [address] PCP - General 09/27/20 08/16/21 [place] [address] [address] [address] PCP - General Family Medicine 08/17/21 10/26/22 [place] [address] [place] [address] PCP - General Family Medicine 10/27/22 10/27/22 No Ref-Primary, Physician PCP - General 11/06/22 04/21/23 [place] [address] [address] [address] PCP - General Family Medicine 04/22/23 [place] [address] [place] [address] Assigned PCP 03/17/20 03/15/21 Villa Santamaria PA-C [address] [place] [address] Assigned PCP 03/16/21 05/03/21 [place] [address] [place] [address] Assigned PCP 05/04/21 01/17/22 Sienna Guillermo DO [address] [place] [address] Assigned Heart and Vascular Provider 09/21/21 10/04/21 Sandy Cox APRN CNP [address] [place] [address] Assigned Heart and Vascular Provider 10/05/21 09/04/22 [place] [address] [place] [address] Assigned PCP 01/18/22 10/30/22 Sienna Guillermo DO [address] [place] [address] Assigned Heart and Vascular Provider 09/05/22 03/12/23 Mai Urena PA-C [address] [place] [address] Assigned PCP 10/31/22 01/22/23 [place] [address] [place] [address] Assigned Pain Medication Provider 12/07/22 [place] [address] [place] [address] Assigned PCP 01/23/23 [place] [address] [place] [address] Assigned Musculoskeletal Provider 01/23/23 09/19/24 Amy Montes De Oca RN Clinic Electromedical Equipment Technician 05/13/2305/17 Gregorio Dalton PA-C [address] [address] Assigned Surgical Provider 05/22/23 07/20/24 Kingsley Garcia MD [address] [place] [address] Assigned Heart and Vascular Provider 08/07/23 [place] [address] [address] [address] Family Medicine 09/10/23 Master Shea PA-C [address] [address] Physician Director Retail Brand Development Gastroenterology 09/10/23 Allyssa Justice MD [facility] [address] [place] [address] [place] [address] Hematology & Oncology 12/10/23 Genaro Christian MD [address] [place] [address] Cardiovascular Disease 12/22/23 Master Shea PA-C [address] [place] [address] Assigned Gastroenterology Provider 12/23/23 Sienna Guillermo DO [address] [place] [address] Physician Cardiovascular Disease 01/18/24 Allyssa Justice MD [facility] [address] [place] [address] [place] [address] Assigned Cancer Care Provider 03/21/24 Declan Leavitt MD [address] [place] [address] [place] [address] Assigned Surgical Provider 07/21/24 Ugo Ochoa MD [address] [place] [address] 753225 Assigned Neuroscience Provider 09/20/24 documented as of this encounter
--- OUTSIDE RECORDS SUMMARY | 2024-09-21 22:48 | XMS_ITS | Encounter Summary ---
Author [facility] Address [address], [place] [address] Care Team Providers Care Split Leather Mosser Name Role Phone Segundo Mcclelland MD Primary Care Provider [phone] Encounter Details Date Type Department Care Team (Late st Contact Info) Description 11/30/2012 Outside Hospital External to [facility] PROGRESS NOTE Social History Tobacco Use Types [...] as of this encounter Progress Notes * [facility], PROVIDER - 11/30/2012 12:00 AM CST ILIZATION TECH documented in this encounter Plan of Treatment Not on file documented as of this encounter Visit Diagnoses Not on filedocumented in this encounter Care Teams Split Leather Mosser Relationship Specialty Start [place] [address] [place] [address] PCP - General Family Practice 06/14/24 documented as of this encounter
--- OUTSIDE RECORDS SUMMARY | 2024-09-21 22:48 | XMS_ITS | Encounter Summary ---
Author Organization [facility] Address [address] [place] [address] Care Team Providers Care Remarketing Rep Name Role Phone Taylor Cardozo [facility] Primary Care Provider None [facility] Jennifer Montejo MD Primary Care Provider [phone] Nimo Wetzel MD Primary Care Provider + Kin Waite MD Primary Care Provider [phone] [facility] Primary Care Prov ider Uyen Palm MD Primary Care Provider [phone] Milady Oakes MD Primary Care Provider + [facility] Primary Care Provider [facility] Primary Care Pro vider No Ref-Primary, Physician Primary Care Provider [facility] Care Provide r Villa Santamaria PA-C Unavailable + Villa Santamaria PA-C Unavailable + Segundo Mcclelland MD Unavailable + Segundo Mcclelland MD Unavailable + No Ref-Primary, Physician Primary Care Provider [facility] Primary Care Provide r Villa SantamariaC Unavailable +[phone] Segundo Mcclelland MD Unavailable + Segundo Mcclelland MD Primary Care Provider + Sienna Guillermo DO Unavailable + Sandy Cox APRN WIRELESS RETAIL MANAGER Unavailable + Segundo Mcclelland MD Unavailable + Sienna Guillermo DO Unavailable +[phone] Malia Dhillon MD Primary Care Provider [phone] No Ref-Primary, Physician Primary Care Provider Mai UrenaC Unavailable [phone] Segundo Mcclelland MD Unavailable + Segundo Mcclelland MD Unavailable + Qamar Jackson MD Unavailable Segundo Mcclelland MD Primary Care Provider + Amy Montes De Oca RN Unavailable +[phone] Gregorio Dalton-C Unavailable + [phone] Kingsley Garcia MD Unavailable +[phone] Segundo Mcclelland MD Unavailable + Master Shea PA-C Unavailable Allyssa Justice MD Unavailable +[phone] Genaro Christian MD Unavailable [phone] Master Shea-C Unavailable Sienna Quiroga DO Unavailable [phone] Allyssa Justice MD Unavailable +[phone] Declan Leavitt MD Unavailable Ugo Ochoa MD Unavailable Encounter Details Date Type Department Care Team (Late st Contact Info) Description 10/04/[address] [place] [address] Taylor Cardozo APRN [facility] [address] [place] [address] Social History Tobacco Use Types [...] AM CDT Legal Sex Female 3:29 AM CONSTRUCTION ENGINEERING MANAGER Gender Identity Female 05/26/2021 10:37 AM [...] Info) Description 02/20/2025 10:20 AM CDT Appointment [facility] Imaging [address] [address] [place] [phone] Allyssa Justice MD [facility] [address] [place] [address] 02/27/2025 10:40 AM CDT Virtual Visit [facility] [address] [facility] [place] [phone] Allyssa Justice MD [facility] [address] [place] [address] documented as of this encounter Visit Diagnoses Not on filedocumented in this encounter Additional Health Concerns Infection Onset Date Last Indicated Resolved Time Rule Out COVID-19 02/29/2020 02/29/2020 03/01/2020 9:51 PM CDT Rule Out COVID-19 05/05/2020 05/05/2020 05/06/2020 2:19 AM CDT Rule Out COVID-19 08/20/2020 08/20/2020 08/21/2020 10:31 PM CDT Rule Out COVID-19 10/27/2020 10/27/2020 11/17/2020 11:39 PM CONSTRUCTION ENGINEERING MANAGER Rule Out COVID-19 12/23/2020 12/24/2020 12/24/2020 2:08 AM CONSTRUCTION ENGINEERING MANAGER Rule Out COVID-19 01/24/2021 01/24/2021 01/24/2021 9:18 PM CONSTRUCTION ENGINEERING MANAGER Rule Out COVID-19 10/27/2022 10/27/2022 10/27/2022 3:19 AM CONSTRUCTION ENGINEERING MANAGER Influenza 10/27/2022 10/27/2022 11/03/2022 11:4 0 PM CONSTRUCTION ENGINEERING MANAGER Rule Out COVID-19 01/04/2023 01/04/2023 01/04/2023 8:32 PM CONSTRUCTION ENGINEERING MANAGER Rule Out C-difficile 01/04/2023 01/04/2023 023 1:46 AM CONSTRUCTION ENGINEERING MANAGER Rule Out C-difficile 01/07/2023 01/07/2023 023 8:18 PM CONSTRUCTION ENGINEERING MANAGER Rule Out C-difficile 06/04/2023 06/04/2023 023 11:28 AM CDT Rule Out Eleonora auris 06/04/2023 06/04/202306/07 9:24 AM CDT ESBL 10/23/2023 05/26/2024 Rule Out COVID-19 11/10/2023 11/10/2023 11/10/2023 7:17 PM CONSTRUCTION ENGINEERING MANAGER Rule Out COVID-19 01/18/2024 01/18/2024 01/18/2024 8:53 PM CONSTRUCTION ENGINEERING MANAGER Rule Out COVID-19 01/28/2024 01/28/2024 01/28/2024 10:22 PM CONSTRUCTION ENGINEERING MANAGER Rule Out COVID-19 02/17/2024 02/17/2024 02/17/2024 5:07 PM CDT Rule Out COVID-19 04/22/2024 04/22/2024 04/23/2024 12:06 AM CDT documented as of this encounter Care Teams Remarketing Rep Relationship Specialty Start Date End Date Taylor Cardozo APRN WIRELESS RETAIL MANAGER [address] [place] [address] PCP - General 01/11/04 09/22/10 None PCP - General 09/23/10 09/02/11 Jennifer Escobedo MD [address] [place] [address] PCP - General library sales consultant 09/03/11 11/01/11 Nimo Wetzel MD [address] [place] [address] PCP - General 11/02/11 04/17/12 Kin Waite MD [address] [place] [address] PCP - General library sales consultant 04/18/12 11/22/[address], [facility] [address] [place] [phone] PCP - General 11/23/12 11/25/13 Uyen Palm MD [address] [facility] [address] [place], [place] [address] PCP - General library sales consultant 11/26/13 09/02/14 Milady Oakes MD [facility] [address] [place] [address] PCP - General Family Practice 09/03/14 09/20/15 [facility] [address] [place] [address] PCP - General 09/21/15 07/10/17 [facility] [address] [place] [address] PCP - General 07/11/17 01/19/18 No Ref-Primary, Physician PCP - General 01/20/18 04/30/18 [facility] [place] [address] PCP - General 05/01/18 09/24/20 Villa Santamaria PA-C [address] [place] [address] PCP - Assigned PCP 05/01/18 01/31/19 No Ref-Primary, Physician PCP - General 09/25/20 09/26/20 [facility] [place] [address] PCP - General 09/27/20 08/16/21 [place] [address] [place] [address] PCP - General Family Medicine 08/17/21 10/26/22 [place] [address] [address] [place] [address] PCP - General Family Medicine 10/27/22 10/27/22 No Ref-Primary, Physician PCP - General 11/06/22 04/21/23 [place] [address] [address] [place], [place] [address] PCP - General Family Medicine 04/22/23 Villa Santamaria PA-C [address] [place] [address] Assigned PCP 05/01/18 08/19/19 [place] [address] [place], [place] [address] Assigned PCP 08/20/19 03/16/20 [place] [address] [address], [place] [address] Assigned PCP 03/17/20 03/15/21 Villa Santamaria PA-C [address] [place], [place] [address] Assigned PCP 03/16/21 05/03/21 [place] [address] [place] [address] Assigned PCP 05/04/21 01/17/22 Sienna Guillermo DO [address] [place] [address] Assigned Heart and Vascular Provider 09/21/21 10/04/21 Sandy Cox APRN CNP [address] [place] [address] Assigned Heart and Vascular Provider 10/05/21 09/04/22 [place] [address] [place] [address] Assigned PCP 01/18/22 10/30/22 Sienna Guillermo DO [address] [place] [address] Assigned Heart and Vascular Provider 09/05/22 03/12/23 Mai Urena PA-C [address] [facility] [place] [address] Assigned PCP 10/31/22 01/22/23 [place] [address] [place] [address] Assigned Pain Medication Provider 12/07/22 [place] [address] [place] [address] Assigned PCP 01/23/23 [place] [address] [place] [address] Assigned Musculoskeletal Provider 01/23/23 09/19/24 Amy Montes De Oca, RN Clinic Char Filter Operator Helper 05/13/2305/17 Gregorio Dalton PA-C [address] [address] Assigned Surgical Provider 05/22/23 07/20/24 Kingsley Garcia MD [address] [place] [address] Assigned Heart and Vascular Provider 08/07/23 [place] [address] [address] [address] Family Medicine 09/10/23 Master Shea PA-C [address] [place] [address] Physician Story Reader Gastroenterology 09/10/23 Allyssa Justice MD [facility] [address] [place] [address] Hematology & Oncology 12/10/23 Genaro Christian MD [address] [place], [place] 60[address] Cardiovascular Disease 12/22/23 Master Shea PA-C [address] [place] [address] Assigned Gastroenterology Provider 12/23/23 Sienna Guillermo DO [address] [place] [address] Physician Cardiovascular Disease 01/18/24 Allyssa Justice MD [facility] [address] [place] [address] Assigned Cancer Care Provider 03/21/24 Declan Leavitt MD [address] [place] [address] Assigned Surgical Provider 07/21/24 Ugo Ochoa MD [address] [place], [place] [address] Assigned Neuroscience Provider 09/20/24 documented as of this encounter
--- OUTSIDE RECORDS SUMMARY | 2024-09-21 22:48 | XMS_ITS ---
Author Organization [facility] Address [address] [place] [address] Care Team Providers Care Gas Jockey Name Role Phone Segundo Mcclelland MD Unavailable [phone] Segundo Mcclelland MD Unavailable [phone] Segundo Mcclelland MD Primary Care Provider + Kingsley Garcia MD Unavailable Segundo Mcclelland MD Unavailable [phone] Master Shea PA-C Unavailable Allyssa Justice MD Unavailable [phone] Genaro Christian MD Unavailable Master Shea PA-C Unavailable Sienna Guillermo DO Unavailable [phone] Allyssa Justice MD Unavailable [phone] Declan Leavitt MD Unavailable Ugo Ochoa MD Unavailable Primary Care Care Coordination Status:Closed (Closed) Start date:08/14/2024 End date:08/16/2024 Close reason:Unable to reach patient Overview Update 08/15 11:46 AM - Called and LVM to schedule CC assessment for transportation resources. Will attempt to call patient back tomorrow afternoon. -PATSY Petit/Cielo both reviewed-. Marisabel consulted with Lara Villar. When you call patient back to schedule CC assessment, please cross-reference the [facility] SW schedule to find an available appt time like you would normally do, but you will add the appt date/time in your Epic note (no actual appt will be in Book it). Please route your completed note to Rafael Preciado when you are finished. She will add a calendar reminder and block her Epic schedule to accommodate the appointment. Continued Care and Services Coordination
--- OUTSIDE RECORDS SUMMARY | 2024-09-21 22:48 | XMS_ITS ---
Author Organization [facility] Address [facility] [place] [address] Care Team Providers Care Telemarketing Agent Name Role Phone Segundo Mcclelland MD Unavailable [phone] Segundo Mcclelland MD Unavailable [phone] Segundo Mcclelland MD Primary Care Provider + Kingsley Garcia MD Unavailable Segundo Mcclelland MD Unavailable [phone] Master Shea PA-C Unavailable Allyssa Justice MD Unavailable [phone] Genaro Christian MD Unavailable [phone] Master Shea PA-C Unavailable Sienna Guillermo DO Unavailable [phone] Allyssa Justice MD Unavailable [phone] Declan Leavitt MD Unavailable Ugo Ochoa MD Unavailable Primary Care Care Coordination Status:Closed (Closed) Start date:06/28/2024 End date:06/28/2024 Close reason:Not a candidate Continued Care and Services Coordination
--- OUTSIDE RECORDS SUMMARY | 2024-09-21 22:48 | XMS_ITS | Encounter Summary ---
[facility] Address [address] [address] Care Team Providers Care Fur Pointer Name Role Phone Segundo Mcclelland MD Primary Care Provider [phone] Encounter Details Date Type Department Care Team (Late st Contact Info) Description 11/22/2012 Outside Hospital External to External, Provider No address [address] CONSULTATION Social History Tobacco Use Types Packs/Day [...] External, Provider - 11/22/2012 12:00 AM [facility] [employer] documented in this encounter Plan of Treatment Not on file documented as of this encounter Visit Diagnoses Not on filedocumented in this encounter Care Teams Fur Pointer Relationship Specialty Start [place] [address] [place] [address] PCP - General Family Practice 06/14/24 documented as of this encounter
--- OUTSIDE RECORDS SUMMARY | 2024-09-21 22:48 | XMS_ITS | Encounter Summary ---
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 Hand Name Role Phone Segundo Mcclelland MD Primary Care Provider [phone] Reason for Referral * Procedure/Equipment (Routine) - Incomplete Specialty Diagnoses / Procedures Referred By Contac t Referred To Contact Procedures XR Portable Chest 1 View Jacquelyn Ying MD [address] [place] [address] Referral ID Status Reason Start Date Expiration Date V isits Requested Visits Authorized [id number] Incomplete 06/15/2024 09/14/2025 1 1 * (Routine) - Incomplete Specialty Diagnoses / Procedures Referred By Contac t Referred To Contact Procedures ECG 12 Lead Jacquelyn Ying MD [address] [place] [address] Referral ID Status Reason Start Date Expiration Date V isits Requested Visits Authorized [id number] Incomplete 06/15/2024 09/14/2025 1 1 Reason for Visit * Reason Comments Hematemesis Encounter Details Date Type Department Care Team (Late st Contact Info) Description 06/15/2024 1:26 AM CDT - 06/15/2024 6:22 AM CDT Emergency [facility] [address] [facility] [place] [address] Jacquelyn Ying MD [address] [place] [address] Hematemesis with nausea Discharge Disposition: Left Against Medical Advice Social History Tobacco Use Types Packs/Day Years Used Date Smoking Tobacco: Never Smokeless Tobacco: Never Alcohol Use Standard Drinks/Week Comments Yes 0 (1 standard drink = 0.6 oz pur e alcohol) 1-2 drinks twice a year PHQ-2 Answer Date Recorded PHQ-2 Score 1 09/30/2020 Hunger Vital Sign Answer Date Recorded Within the past 12 months, y ou worried that your food would run out before you got the money to buy more. Sometimes true Within the past 12 months, t he food you bought just didn't last and you didn't have money to get more. Sometimes true Sex and Gender Information Value Date Recorded Sex Assigned at Not on file Gender Identity Not on file Sexual Orientation Not on file documented as of this encounter Last Filed Vital Signs Vital Sign Reading Time Taken Comments Blood Pressure 136/77 06/15/2024 4:34 AM CDT Pulse 108 06/15/2024 5:00 AM CDT Temperature 36.7 ??C (98 ??F) 06/15/2024 3:12 AM CDT Respiratory Rate 16 06/15/2024 1:24 AM CDT Oxygen Saturation 99% 06/15/2024 5:00 AM CDT Inhaled Oxygen Concentration - - Weight - - Height - - Body Mass Index - - documented in this encounter Discharge Instructions * Attachments The following attachments cannot be sent through Care Everywhere. * Nausea and Vomiting (Yakut) documented in this encounter Medications at Time of Discharge Medication Sig Dispensed Refills Start Date End Date acetaminophen (TYLENOL) 325 MG tabletIndications:Fever ,Pain Take 3 Tablets (975 mg) by mouth every 8 hours as needed for Pain or Fever. Maximum acetaminophen dose is 4000 mg in 24 hours Indications: Fever, Pain 05/11/2023 apixaban (ELIQUIS) 5 MG tabletIndications:Deep Vein Thrombosis,Acute deep vein thrombosis (DVT) of brachial vein of right upper extremity Take 1 Tablet (5 mg) by mouth two times a day. Indications: Blood Clot in a Deep Vein, Acute deep vein thrombosis (DVT) of brachial vein of right upper extremity 06/22/2023 calcium carbonate-vitamin D 600-10 MG-MCG tabletIndications:Hypoc alcemia Take 1 Tablet by mouth two times a day. Take at least 2 hours apart from iron supplement. Indications: Low Amount of Calcium in the Blood cholecalciferol (VITAMIN D3) 50 MCG (2000 UT) capsuleIndications:Angela min D Deficiency Take 1 Capsule (2,000 Units) by mouth daily. Indications: Vitamin D Deficiency clonazePAM (KLONOPIN) 0.5 MG tabletIndications:Anxie ty,Panic Disorder Take 1 Tablet (0.5 mg) by mouth three times a day. Indications: Feeling Anxious, Panic Disorder diphenhydrAMINE (BENADRYL) 25 MG capsuleIndications:Inso mnia,Pruritus Take 1 Capsule (25 mg) by mouth every 6 hours as needed for Itching or Sleep. Indications: Itching, Trouble Sleeping EPINEPHrine (EPIPEN) 0.3 MG/0.3ML injectionIndications:An aphylaxis Inject 0.3 mL (0.3 mg) intramuscularly as needed (for allergic reactions). May repeat in 5 minutes if little to no initial response. Indications: Life-Threatening Hypersensitivity Reaction gabapentin (NEURONTIN) 800 MG tablet Take 1 Tablet (800 mg) by mouth three times a day. 09/26/2020 lisinopril (ZESTRIL) 10 MG tabletIndications:Hyper tension Take 1 Tablet (10 mg) by mouth daily. Indications: High Blood Pressure Disorder mirtazapine (REMERON SOLUTAB) 15 MG disintegrating tabletIndications:Panic Disorder Take 1 Tablet (15 mg) by mouth daily at bedtime. Indications: Panic Disorder 06/22/2023 Multiple Vitamins-Iron (MULTIVITAMIN PLUS IRON ADULT) TABSIndications:Nutriti onal Support,Vitamin Deficiency Take 1 Tablet by mouth daily. Indications: Nutritional Support, Vitamin Deficiency naloxone (NARCAN) 4 MG/0.1ML nasal spray Place 1 Voss (4 mg) into one nostril as needed (for suspected overdose). Call 911. Repeat in opposite nostril in 3 minutes if no or minimal response. 2 Each 06/28/2023 ondansetron (ZOFRAN-ODT) 4 MG disintegrating tabletIndications:Nause a and Vomiting Take 1 Tablet (4 mg) by mouth every 6 hours as needed for Nausea. Indications: Nausea and Vomiting pantoprazole DR (PROTONIX) 40 MG tabletIndications:Gastr ic Ulcer,Gastroesophageal Reflux Disease,Heartburn Take 1 Tablet (40 mg) by mouth two times a day. Indications: Gastroesophageal Reflux Disease, Heartburn, Stomach Ulcer 05/12/2023 sucralfate (CARAFATE) 1 GM/10ML suspensionIndications:G astric Ulcer Take 10 mL (1 g) by mouth three times daily before meals. Indications: Stomach Ulcer 05/12/2023 zolpidem (AMBIEN) 10 MG tabletIndications:Insom glenn Take 1 Tablet (10 mg) by mouth daily at bedtime. Indications: Trouble Sleeping documented as of this encounter ED Notes * Marcel Aguirre RN - 06/15/2024 6:30 AM CDT Emergency Center Nursing Note vital signs before patient left AMA: BP 136/77 Pulse (!) 102 Temp 36.7 ??C (98 ??F) Resp 16 LMP 12/14/2017 SpO2 99% I have met with the patient, and she has decided to leave against medical advice. The patient is clinically sober and appears to have the capacity to make decisions. I have explained my concerns about what these symptoms could represent. she understands the extent and limitations of my exam, as well as my recommendations to come back at any point. The patient understands the risks of foregoing further treatment may include, but are not limited to, and permanent disability. The patient is unwilling to stay for further workup and treatment and is refusing further care because she wants narcotic pain meds, and they are contraindicated for her care per Dr. Ying and the Hospitalist. The pat ient understands she is leaving against medical advice. The patient also understands that she is welcome to come back at any time if she changes her mind. I have discussed danger signs at length withthe patient and all questions were fully answered. I offered to help the patient with follow up. * Marcel Aguirre RN - 06/15/2024 6:28 AM CDT [facility] Clinician Note for Patient Leaving AMA I have met with the patient, and she has decided to leave against medical advice. The patient is clinically sober and appears to have the capacity to make decisions. I have explained my concerns about what these symptoms could represent. she understands the extent and limitations of my exam, as well as my recommendations to come back at any point. The patient understands the risks of foregoing further treatment may include, but are not limited to, and permanent disability. The patient is unwilling to stay for further workup and treatment and is refusing further care because she wants narcotic pain meds, and they are contraindicated for her care per Dr. Ying and the Hospitalist. The pat ient understands she is leaving against medical advice. The patient also understands that she is welcome to come back at any time if she changes her mind. I have discussed danger signs at length withthe patient and all questions were fully answered. I offered to help the patient with follow up. * Marcel Aguirre RN - 06/15/2024 3:58 AM CDT Pt said that she wants to leave after potassium infusion so she can be home with her pain meds. I made it very clear to her why that's not a good idea. She has a lot of other issues that are more critical at play: her potassium levels, her hemoglobin levels, her GI issues, and such. Narcotic use atthis time could exacerbate things. I made it clear to her that I don't recommend going home at thistime for those reasons. * Jacquelyn Ying MD - 06/15/2024 1:35 AM CDT Emergency Center Note History of Present Illness Chief Complaint Hematemesis HPI Sandi Lopez is a 38 y.o. female with a history of PE, not currently, drug- seeking behavior, borderline personality disorder, fictitious disorder, Munchausen syndrome, anticoagulated Gigi-cheatham tear, GERD, and seizure who presents to the emergency department for hematemesis. Patient reports that she had a fall about 6 days that caused her to dislodge her PICC. Subsequently, she was unable to received IV fluids and nausea medications. Yesterday, she returned to the ED for syncopal episodebut was subsequently discharged. She has been attempting to stay hydrated, however she states that with any liquid or food she has emesis. Over the past two hours, patient has had hematemesis. This started as a small amount of blood present but has increased to mostly blood. She adds that despite not eating anything, the taste of blood is causing her to vomit. Additionally, patient has been having abdominal pain that she compares to her normal gastroparesis pain but more severe. She is not currently using a blood thinner. She denies use of alcohol. Patient typically takes Benadryl and Valium for nausea and notes allergies to many medications. Independent Historian None Review of External Notes I reviewed the ED note from yesterday, 06/15/2024. Patient was seen for syncope, nausea, and dehydration. I reviewed the ED note from 06/09/2024. She was seen for syncope. She was on Eliquis for prior pulmonary embolism. I reviewed the ED note from 06/07/2024. Patient was seen for hematemesis and gigi-cheatham tear. She had tachycardia to 140's. Extensive history of GI bleeding. Had blood cultures showing preliminary results of NGTD and EDG revealing esophagitis on 06/08/2024. She was started on PPI. Past Medical History Medical History and Problem List Abdominal pain Anemia Anxiety Borderline personality disorder Concussion with brief loss of consciousness CONVERSION DX Drug-seeking behavior Eating disorder Factitious disorder with physical symptoms Gastroenteritis GBS (group B streptococcus) infection Generalized abdominal pain GERD (gastroesophageal reflux disease) Hematemesis High-risk supervision Hyperemesis gravidarum Insomnia Intractable nausea and vomiting Intractable vomiting Left lumbar radiculopathy Liver enzyme elevation Major depressive disorder, single episode Gigi-Mustafa tear Mixed personality disorder Moderate benzodiazepine use disorder Morbid obesity with BMI of 45.0-49.9, adult Munchausen syndrome Narcotic abuse Nephrolithiasis Obesity Opioid use disorder, moderate, dependence Pain crisis Posttraumatic stress disorder Pulmonary embolus Radicular pain of right lower extremity Seizure Shortness of breath Status post laparoscopy Syncope Medications acetaminophen (TYLENOL) 325 MG tablet apixaban (ELIQUIS) 5 MG tablet calcium carbonate-vitamin D 600-10 MG-MCG tablet cholecalciferol (VITAMIN D3) 50 MCG (1999) capsule clonazePAM (KLONOPIN) 0.5 MG tablet diphenhydrAMINE (BENADRYL) 25 MG capsule EPINEPHrine (EPIPEN) 0.3 MG/0.3ML injection gabapentin (NEURONTIN) 800 MG tablet lisinopril (ZESTRIL) 10 MG tablet mirtazapine (REMERON SOLUTAB) 15 MG disintegrating tablet Multiple Vitamins-Iron (MULTIVITAMIN PLUS IRON ADULT) TABS naloxone (NARCAN) 4 MG/0.1ML nasal spray ondansetron (ZOFRAN-ODT) 4 MG disintegrating tablet pantoprazole DR (PROTONIX) 40 MG tablet sucralfate (CARAFATE) 1 GM/10ML suspension zolpidem (AMBIEN) 10 MG tablet Surgical History Appendectomy 2003 Cervical cerclage first and second Cholecystectomy Cryosurgery of the crevix, date unknown Ercp Gall bladder surgery, laparosc Appendectomy age 10 confirmed on laparoscopy 2011 Hysterectomy vaginal Infected skin debridement 09/30/13 abnw for postop umb wound infxn Lap cholecystectomy Laparoscopy 2006 pelvic pain Laparoscopy 2012 lysis rlq adhesions, normal adnexa Laparoscopy 09/20/13 Abnw, dr. Meredith sotomayor, done for periumbilical pain, neg findings Leep x2, unknown date Leep procedure 2001 x 2 , cryo of cervix (outside records), all done for dylan 1 only per pt. Leg/ankle surgery proc unlisted Picc placement ip double lume ([id number]) 04/27/2014 r-bas Picc placement ip single lume ([id number]) 12/06/2012 Tonsil and adenoidectomy Tubal ligation Physical Exam Triage Vitals Temp 06/15/24 0312 36.7 ??C (98 ??F) Temp src 06/15/24 0124 Oral Pulse 06/15/24 0124 (!) 122 Resp 06/15/24 0124 16 BP 06/15/24 0124 139/74 SpO2 06/15/24 0124 100 % Physical Exam Gen - no distress, appears well ENT - Dried blood on lips. Eyes - sclera anicteric Resp - no respiratory distress, speaking in full sentences with normal work of breathing, Lungs clear to auscultation bilaterally CV - normal/symmetric chest rise, tachycardic, regular rhythm, no murmurs, 2+ radial pulses Abd - epigastric tenderness, soft, normal bowel sounds Neuro - normal speech, moving all four extremities with full strength, face symmetric MSK - no edema Skin - pink, no obvious visible rashes Psych - Anxious, normal affect Vitals Trending Patient Vitals for the past 24 hrs: BP Temp Temp src Pulse Resp SpO2 06/15/24 0500 -- -- -- (!) 108 -- 99 % 06/15/24 0451 -- -- -- (!) 109 -- 100 % 06/15/24 0434 136/77 -- -- (!) 108 -- 100 % 06/15/24 0428 -- -- -- (!) 105 -- 100 % 06/15/24 0415 -- -- -- (!) 110 -- 100 % 06/15/24 0411 -- -- -- (!) 109 -- 100 % 06/15/24 0405 (!) 139/105 -- -- (!) 111 -- 100 % 06/15/24 0400 -- -- -- (!) 114 -- 100 % 06/15/24 0350 -- -- -- (!) 114 -- 100 % 06/15/24 0330 97/63 -- -- (!) 116 -- 100 % 06/15/24 0317 -- -- -- (!) 127 -- 100 % 06/15/24 0312 -- 36.7 ??C (98 ??F) -- -- -- -- 06/15/24 0308 -- -- -- (!) 120 -- 100 % 06/15/24 0300 137/80 -- -- (!) 125 -- 100 % 06/15/24 0230 111/67 -- -- (!) 108 -- 100 % 06/15/24 0200 (!) 113/100 -- -- (!) 110 -- 98 % 06/15/24 0155 -- -- -- (!) 113 -- 99 % 06/15/24 0135 128/77 -- -- (!) 121 -- 100 % 06/15/24 0124 139/74 -- Oral (!) 122 16 100 % Diagnostics Lab Results Results for orders placed or performed during the hospital encounter of 06/15/24 Basic Metabolic Panel Result Value Ref Range Sodium 141 136 - 145 mmol/L Potassium 3.3 (L) 3.5 - 5.1 mmol/L Chloride 109 98 - 109 mmol/L CO2 24 20 - 29 mmol/L Anion Gap 8 6 - 16 mmol/L Calcium 9.1 8.4 - 10.4 mg/dL BUN 10 7 - 26 mg/dL Creatinine 0.71 0.55 - 1.02 mg/dL Glucose 88 70 - 100 mg/dL GFR, Estimated >60 >60 mL/min/1.73m2 INR/Protime Result Value Ref Range Protime 13.1 11.8 - 14.6 Seconds INR 1.0 0.9 - 1.1 APTT (Activated Partial Thromboplastin Time) Result Value Ref Range APTT 29.2 22.5 - 36.5 Seconds Complete Blood Count-W/Diff Result Value Ref Range WBC 10.4 3.5 - 10.5 x10(9)/L RBC 3.29 (L) 3.90 - 5.03 x10(12)/L Hemoglobin 7.5 (L) 12.0 - 15.5 g/dL HCT 25.1 (L) 34.9 - 44.5 % MCV 76.3 (L) 80.0 - 100.0 fL MCH 22.8 (L) 27.6 - 33.3 pg MCHC 29.9 (L) 31.5 - 35.2 g/dL RDW 17.4 (H) 11.9 - 15.5 % Platelets 537 (H) 150 - 450 x10(9)/L Automated NRBC 0 <=0 /100 WBC Neutrophil Absolute 6.7 1.7 - 7.0 10(9)/L Lymphocyte Absolute 2.6 1.0 - 4.8 10(9)/L Monocyte Absolute 0.9 0.2 - 0.9 10(9)/L Eosinophil Absolute 0.1 0.0 - 0.5 10(9)/L Basophil Absolute 0.1 0.0 - 0.3 10(9)/L Immature Granulocyte % 0.3 0.0 - 0.5 % Blood Type Result Value Ref Range ABO O RH Positive Antibody Screen Result Value Ref Range Antibody Screen Interpretation Negative Extra Lavender top tube Result Value Ref Range Extra Lavender Top Drawn Specimen will be held for 3 days Extra Blue top tube Result Value Ref Range Extra Blue Top Drawn Specimen will be held for 24 hours Extra Light Green Tube Result Value Ref Range Extra Light Green Tube Drawn Specimen will be held for 5 days ECG 12 Lead Result Value Ref Range Ventricular Rate 119 BPM Atrial Rate 119 BPM P-R Interval 152 ms QRS Duration 72 ms QT 316 ms QTc 444 ms P [place] 79 degrees R [place] 65 degrees T [place] 61 degrees Imaging XR Portable Chest 1 View Final Result EXAM: XR PORTABLE CHEST 1 VIEW LOCATION: [facility] DATE: 06/15/2024 INDICATION: Chest pain, vomiting, r/o pneumomediastinum COMPARISON: 06/09/2024 IMPRESSION: Lungs clear. No pneumothorax. Normal heart size. No definitive evidence for pneumomediastinum. Normal pulmonary vascularity. Osseous structures unremarkable. EKG ECG Results ECG 12 Lead (Final result) Collection Time Result Time Ventricular Rate Atrial Rate P-R Interval QRS Duration QT QTc P Berlin R Berlin T Berlin 06/15/24 03:02:13 06/15/24 05:23:39 119 119 152 72 316 444 79 65 61 Final result Narrative: Sinus tachycardia Low voltage QRS Borderline ECG When compared with ECG of 14-JUN-2024 10:32, No significant change was found Confirmed by Jacquelyn Ying ([id number]) on 06/15/2024 5:23:36 AM Independent Interpretation CXR: No pneumomediastinum ED Course Medications Administered Medications potassium chloride 10 mEq/100 mL IVPB (10 mEq Intravenous Started 06/15/24 0530) melatonin tablet 3 mg (has no administration in time range) acetaminophen (TYLENOL) tablet 650 mg (has no administration in time range) senna (SENOKOT) tablet 2 Tablet (has no administration in time range) And polyethylene glycol (MIRALAX) oral powder 17 g (has no administration in time range) And bisacodyl (DULCOLAX) rectal suppository 10 mg (has no administration in time range) calcium carbonate (TUMS) chewable tablet 500 mg (has no administration in time range) benzocaine-menthol (Chloraseptic) lozenge 1 Lozenge (has no administration in time range) guaiFENesin (ROBITUSSIN) oral liquid 10 mL (has no administration in time range) sodium chloride (OCEAN) 0.65 % nasal solution 1 Voss (has no administration in time range) polyethyl-propylene glycol (SYSTANE) 0.4-0.3 % ophthalmic solution 1 Drop (has no administration intime range) nystatin (MYCOSTATIN) 829078 UNIT/GM topical powder (has no administration in time range) Adult Magnesium Replacement Protocol: goal 2 mg/dL (has no administration in time range) Adult Potassium Replacement Protocol: goal 3.5 mmol/L (has no administration in time range) pantoprazole (PROTONIX IV) 40 mg in sodium chloride 0.9% 10 mL IV push (40 mg Intravenous Given 06/15/24 0246) sodium chloride 0.9% bolus 1,000 mL (0 mL Intravenous Infused 06/15/24 0335) diphenhydrAMINE (BENADRYL) injection 25 mg (25 mg Intravenous Given 06/15/24 0243) diazePAM (VALIUM) injection 5 mg (5 mg Intravenous Given 06/15/24 0322) Procedures None Discussion of Management Admitting Hospitalist ED Course Clinical Impressions as of 06/15/24 0539 Hematemesis with nausea Optional/Additional Documentation None Medical Decision Making / Diagnosis MIPS None [facility] Sandi Lopez is a 38 y.o. female with history of recurrent syncope, chronic gastroparesis withplan for J-tube, recent PICC line for ongoing IV fluids and antiemetics, chronic pain, Munchausen syndrome, who presents to the emergency department with recurrent hematemesis. She arrives tachycardic with blood around her mouth and evidence of recent bleed. She had an endoscopy several days ago that showed some esophagitis but no evidence of varices or ulcer. She was tachycardic but normotensive. She was in the emergency department yesterday for syncope however hemoglobin was stable and heart rate at that time was normal. Certainly with recurrent hematemesis and a borderline hemoglobin to begin with, tachycardia I do worry about recurrent bleed. Thankfully she was normotensive. Hemoglobin here is 7.5 down slightly from 7.912 hours ago. Will give some IV Protonix as well as IV fluids. Shewas requesting oral Dilaudid and apparently had some abrupt worsening acute on chronic chest discomfort after a retching episode. A stat portable chest x-ray was performed and I do not see any obvious pneumomediastinum, new pleural effusion to suggest esophageal rupture/Boerhave's. This has most likely esophagitis. She does take chronic benzodiazepine so will give her some IV Valium. She was still certainly wide awake after IV Benadryl. With her numerous allergies and reported allergies to antiemetics, will defer on additional antiemetics for now though I do think it may be worth a recurrent trial of others here in the hospital. She was requesting specifically Dilaudid that will dissolve under her tongue. She was prescribed oral Dilaudid elix looks like. Explained that I do not feel comfor table giving her narcotic pain medication for chronic pain, that typically these processes are not painful so with the degree of requiring IV narcotics and certainly given her history of drug-seekingbehavior, again requesting Dilaudid by name and format, requesting Benadryl benzodiazepines, I advised we certainly do need to watch her given her ongoing tachycardia for trending of her hemoglobin, but from an Emergency Department standpoint I do not think she warrants narcotics. Because it has been more than 12 hours since her last dose of benzos in his tachycardic, I will provide her with a dose of Valium however, to treat any potential underlying benzodiazepine withdrawal and prevent withdra wal seizure 0530-patient apparently trying to leave AMA the 3rd time. When I evaluated her she is consistent that she wishes to leave. Signed out AMA. Advised that she contact her primary team through [facility]. Advised to return if she changes her mind or feels worse. Her heart rate is down to 106 at time of discharge. Disposition AMA Diagnosis Final diagnoses: [K92.0] Hematemesis with nausea IFelipe, am serving as the scribe at 2:02 AM to document services personally performed by Jacquelny Ying MD, based on our observations and the provider's statements to me. 06/15/2024 [facility] Portions of this medical record were completed by a scribe. UPON MY REVIEW AND AUTHENTICATION BY ELECTRONIC SIGNATURE, this confirms (a) I performed the applicable clinical services, and (b) the record is accurate. Jacquelyn Ying MD 06/15/24 0321 Jacquelyn Ying MD 06/15/24 0539 documented in this encounter Plan of Treatment Pending Results Name Type Priority Associated Diagnoses Date /Time [facility] Draw and hold Lab Routine 2:32 AM CDT Scheduled Orders Name Type Priority Associated Diagnoses Orde r Schedule [facility] Draw [facility] hold Lab Routine Onc e today starting now for 1 Occurrences starting 06/15/2024 until 06/15/2024 Extra Light Green Tube Lab Routine On ce for 1 Occurrences starting 06/15/2024 until 06/15/2024 documented as of this encounter Procedures Procedure Name Priority Date/Time Associated Diagnosis Comments XR PORTABLE CHEST 1 VIEW STAT 06/15/2024 3:16 AM CDT ECG 12 LEAD INPATIENT STAT 06/15/2024 3:02 AM CDT EXTRA LAVENDER TOP TUBE Routine 06/15/20 2:32 AM CDT EXTRA BLUE TOP TUBE Routine 06/15/2024 2 :32 AM CDT TYPE AND SCREEN STAT 06/15/2024 2:32 AM CDT CBC AND DIFFERENTIAL PANEL STAT 06/15/2024 2:32 AM CDT EXTRA LIGHT GREEN TUBE Routine 2:32 AM CDT ANTIBODY SCREEN STAT 06/15/2024 2:32 AM CDT BLOOD TYPE STAT 06/15/2024 2:32 AM CDT COMPLETE BLOOD COUNT-W/DIFF STAT 06/15/2024 2:32 AM CDT BASIC METABOLIC PANEL STAT 06/15/2024 2:32 AM CDT APTT (ACTIVATED PARTIAL THROMBOPLASTIN TIME STAT 06/15/2024 2:32 AM CDT INR/PROTIME STAT 06/15/2024 2:32 AM CDT documented in this encounter Results * XR Portable Chest 1 View (06/15/2024 3:16 AM CDT) Anatomical Region Laterality Modality Chest, Lung Computed Radiogr aphy 06/15/2024 3:16 AM CDT Narrative 06/15/2024 3:26 AM CDT EXAM: XR PORTABLE CHEST 1 VIEW LOCATION: [facility] DATE: 06/15/2024 INDICATION: Chest pain, vomiting, r/o pneumomediastinum COMPARISON: 06/09/2024 IMPRESSION: Lungs clear. No pneumothorax. Normal heart size. No definitive evidence for pneumomediastinum. Normal pulmonary vascularity. Osseous structures unremarkable. Procedure Note Juan Soriano MD - 06/15/2024 EXAM: XR PORTABLE CHEST 1 VIEW LOCATION: [facility] DATE: 06/15/2024 INDICATION: Chest pain, vomiting, r/o pneumomediastinum COMPARISON: 06/09/2024 IMPRESSION: Lungs clear. No pneumothorax. Normal heart size. No definitiveevidence for pneumomediastinum. Normal pulmonary vascularity. Osseousstructures unremarkable. Jacquelyn Ying MD RAD PORTABLE * ECG 12 Lead (06/15/2024 3:02 AM CDT) Ventricular Rate 119 BPM MUSE G[facility] Atrial Rate 119 BPM MUSE [facility] P-R Interval 152 ms MUSE GHP QRS Duration 72 ms MUSE GHP QT 316 ms MUSE GHP QTc 444 ms MUSE GHP P [place] 79 degrees MUSE GHP R [place] 65 degrees MUSE GHP T [place] 61 degrees MUSE GHP 06/15/2024 3:02 AM CDT Narrative MUSE GHP - 06/15/2024 5:23 AM CDT Sinus tachycardia Low voltage QRS Borderline ECG When compared with ECG of 14-JUN-2024 10:32, No significant change was found Confirmed by Jacquelyn Ying ([id number]) on 06/15/2024 5:23:36 AM Procedure Note Jacquelyn Ying MD - 06/15/2024 Sinus tachycardia Low voltage QRS Borderline ECG When compared with ECG of 14-JUN-2024 10:32, No significant change was found Confirmed by Jacquelyn Ying ([id number]) on 06/15/2024 5:23:36 AM Jacquelyn Ying MD PN ECG ORDERABLES Performing Organization Address [facility] de Phone Number MUSE [address] [place] [address] * Extra Light Green Tube (06/15/2024 2:32 AM CDT) Extra Light Green Tube Drawn Specimen will be held for 5 days 06/15/2024 4:00 AM CDT [facility] Blood Venipuncture / Unknown 06/15/2024 2:32 AM CDT 06/15/2024 2:37 AM CDT Jacquelyn Ying MD LAB_1 Performing Organization Address [facility] de Phone Number [facility] [address] * Extra Blue top tube (06/15/2024 2:32 AM CDT) Extra Blue Top Drawn Specimen will be held for 24 hours 06/15/2024 4:00 AM CDT [facility] Blood Venipuncture / Unknown 06/15/2024 2:32 AM CDT 06/15/2024 2:37 AM CDT Jacquelyn Ying MD LAB_1 Performing Organization Address [facility] de Phone Number [facility] [address] * Extra Lavender top tube (06/15/2024 2:32 AM CDT) Extra Lavender Top Drawn Specimen will be held for 3 days 06/15/2024 4:00 AM CDT [facility] Blood Venipuncture / Unknown 06/15/2024 2:32 AM CDT 06/15/2024 2:37 AM CDT Jacquelyn Ying MD LAB_1 Performing Organization Address [facility] de Phone Number [facility] [address] * Antibody Screen (06/15/2024 2:32 AM CDT) Antibody Screen Interpretation Negative 06/15/2024 3:49 AM CDT [facility] Blood Venipuncture / Unknown 06/15/2024 2:32 AM CDT 06/15/2024 2:37 AM CDT Jacquelyn Ying MD LAB_1 Performing Organization Address [facility] de Phone Number [facility] [address] * Blood Type (06/15/2024 2:32 AM CDT) ABO O 06/15/2024 3:49 AM CDT [facility] RH Positive 06/15/2024 3:49 AM CDT [facility] Blood Venipuncture / Unknown 06/15/2024 2:32 AM CDT 06/15/2024 2:37 AM CDT Jacquelyn Ying MD LAB_1 Performing Organization Address [facility] de Phone Number [facility] [address] [place] [address] * (ABNORMAL) Complete Blood Count-W/Diff (06/15/2024 2:32 AM CDT) WBC 10.4 3.5 - 10.5 x10(9)/L 06/15/2024 2:40 AM CDT [facility] RBC 3.29(L) 3.90 - 5.03 x10(12)/L 06/15/2024 2:40 AM CDT [facility] Hemoglobin 7.5(L) 12.0 - 15.5 g/dL 06/15/2024 2:40 AM CDT [facility] HCT 25.1(L) 34.9 - 44.5 % 06/15/2024 2:40 AM CDT [facility] MCV 76.3(L) 80.0 - 100.0 fL 06/15/2024 2:40 AM CDT [facility] MCH 22.8(L) 27.6 - 33.3 pg 06/15/2024 2:40 AM CDT [facility] MCHC 29.9(L) 31.5 - 35.2 g/dL 06/15/2024 2:40 AM CDT [facility] RDW 17.4(H) 11.9 - 15.5 % 06/15/2024 2:40 AM CDT [facility] Platelets 537(H) 150 - 450 x10(9)/L 06/15/2024 2:40 AM CDT [facility] Automated NRBC 0 <=0 /100 WBC 06/15/2024 2:40 AM CDT [facility] Neutrophil Absolute 6.7 1.7 - 7.0 10(9)/L 06/15/2024 2:40 AM CDT [facility] Lymphocyte Absolute 2.6 1.0 - 4.8 10(9)/L 06/15/2024 2:40 AM CDT [facility] Monocyte Absolute 0.9 0.2 - 0.9 10(9)/L 06/15/2024 2:40 AM CDT [facility] Eosinophil Absolute 0.1 0.0 - 0.5 10(9)/L 06/15/2024 2:40 AM CDT [facility] Basophil Absolute 0.1 0.0 - 0.3 10(9)/L 06/15/2024 2:40 AM CDT [facility] Immature Granulocyte % 0.3 0.0 - 0.5 % 06/15/2024 2:40 AM CDT [facility] Blood Venipuncture / Unknown 06/15/2024 2:32 AM CDT 06/15/2024 2:37 AM CDT Jacquelyn Ying MD LAB_1 [facility] [address] [place] [address] * APTT (Activated Partial Thromboplastin Time) (06/15/2024 2:32 AM CDT) APTT 29.2 22.5 - 36.5 Seconds 06/15/2024 2:57 AM CDT [facility] Blood Venipuncture / Unknown 06/15/2024 2:32 AM CDT 06/15/2024 2:37 AM CDT Jacquelyn Ying MD LAB_1 Performing Organization Address [facility] de Phone Number [facility] [address] [place] [address] * INR/Protime (06/15/2024 2:32 AM CDT) Pathologist [facility] Protime 13.1 11.8 - 14.6 Seconds 06/15/2024 2:57 AM CDT [facility] INR 1.0 0.9 - 1.1 06/15/2024 2:57 AM CDT [facility] Blood Venipuncture / Unknown 06/15/2024 2:32 AM CDT 06/15/2024 2:37 AM CDT Narrative [facility] - 06/15/2024 2:57 AM CDT If you take an anticoagulant medicine called warfarin, your doctor or clinician may establish a normal range for you that is different from the baseline range shown. Jacquelyn Ying MD LAB_1 Performing Organization Address [facility] de Phone Number [facility] [address] * (ABNORMAL) Basic Metabolic Panel (06/15/2024 2:32 AM CDT) Sodium 141 136 - 145 mmol/L 06/15/2024 3:01 AM CDT [facility] Potassium 3.3(L) 3.5 - 5.1 mmol/L 06/15/2024 3:01 AM CDT [facility] Chloride 109 98 - 109 mmol/L 06/15/2024 3:01 AM CDT [facility] CO2 24 20 - 29 mmol/L 06/15/2024 3:01 AM CDT [facility] Anion Gap 8 6 - 16 mmol/L 06/15/2024 3:01 AM CDT [facility] Calcium 9.1 8.4 - 10.4 mg/dL 06/15/2024 3:01 AM CDT [facility] BUN 10 7 - 26 mg/dL 06/15/2024 3:01 AM CDT [facility] Creatinine 0.71 0.55 - 1.02 mg/dL 06/15/2024 3:01 AM CDT [facility] Glucose 88 70 - 100 mg/dL 06/15/2024 3:01 AM CDT [facility] Comment:The given reference range is for the fasting state. Non-fasting reference range for glucose is 70 - 180 mg/dL. 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) Hematemesis with nausea Borderline personality disorder (HRC) Borderline personality disorder Drug-seeking behavior Other, mixed, or unspecified nondependent drug abuse, unspecified Abdominal pain Munchausen syndrome Chronic factitious illness with physical symptoms Factitious disorder with physical symptoms Other and unspecified factitious illness Pulmonary embolus (HRC) Other pulmonary embolism and infarction Nausea and vomiting Nausea with vomiting Acute hypokalemia Hypopotassemia Esophagitis Esophagitis, unspecified * Plan of Care - Chey Noonan MD - 06/15/2024 5:40 AM CDT Hospitalist brief note Paged around 0315AM for patient admission to hospital for report of hematemesis. Extensive chart review and initial orders placed but then patient stating she wanted to leave AMA to go home to take her narcotics. Around 0500AM I was paged again stating patient agreeable to admission. I went down [facility] ED to see her at bedside and she only wanted to discuss narcotics. I reviewed [facility] or to seeing her and she is no longer on narcotics but is reporting she takes 2mg dilaudid q8h. I see that she completed a recent wean off dilaudid, last dose was supposed to be 0.5mg TID and ending on 06/11/24. I discussed with her that I agree with Dr. Ying that with chronic abdominal pain and hercare plan noted through [facility] I would not be offering narcotics during admission. Patient now wanting to leave [facility] again. Patient has history of malingering, factitious disorder, Munchausen syndrome, bipolar disorder, drug seeking disorder. Care plan as written in [facility] chart is: ED care plan: Chronic Pain Syndrome: [facility] Pain Policy applies: No IV/IM Opioids [...] issues: Please reinforce outpatient management of PICC /vascular access, opioid prescriptions, urgent/routine endoscopy care. Avoid any prescription refills Direct the patient to follow up with PCP regarding any PICC replacement / complication issues that do not require hospitalization. If main room needed, recommend placing within view of ED RN team given concerns for self-induced vomiting, etc. Hospitalization: Unnecessary hospitalization of this patient is detrimental to his plan of care andoverall well-being. Hospitalization should be avoided unless clearly medically indicated. Patient has already received IV valium and benadryl and the discretion of Dr. Ying. She has known esophagitis on recent EGD and is anticoagulated. History of self-induced vomiting, central line manipulation and IV drug seeking. Her hemoglobin is stable from previous and she reports taking PPI BID at home for her esophagitis. Again, I do not see any indication for opioids at this time or repeat EGD. If she decides to be admitted later on would recommend repeat hemoglobin and discharge home if stable with PCP follow-up. Plan for now is AMA discharge from the ED per patient request after counseling by myself and bedside RN. Chey Noonan MD [facility] * Triage Assessment Note - Mery Rivera RN - 06/15/2024 1:23 AM CDT Pt presents to EC with complaints of vomiting blood. Pt states she has a hx of gastroparesis causedby ozempic use, which led to her requiring 2 units of PRBC approx 2 weeks ago for anemia. Pt reports that Wednesday she sustained a fall that caused her to dislodge her PICC, causing her to not receive IVF (normally receives 3-5x/week per pt). She states that she was evaluated in EC earlier today after experiencing a syncopal episode and was discharged to home. For the past 2 hours, pt reports she has been vomiting bright red blood. Dried blood noted around mouth and to hands. She notes pain in her chest radiating into her back, described as a burning pain. documented in this encounter Administered Medications Inactive Administered Medications - up to 3 most recent administrations Medication Order MAR Action Action Date Dose Rate Site bisacodyl (DULCOLAX) rectal suppository 10 mg 10 mg, Rectal, DAILY PRN, Constipation, No stool in the last 3 days, Starting on Marleny 06/15/24 at 0522, Until Marleny 06/15/24 at 0832, Cumulative bowel medication orders. Administer based on medications available on JAN. If no stool in last day start Senna BID PRN no stool, if no stool in last 2 days add Miralax DAILY PRN no stool, if no stool in last 3 days add bisacodyl suppository DAILY PRN until patient stools. When patient stools, stop giving PRN meds and continue monitoring for bowel activity. When no stools X 1 day, begin regimen again until patient stools. Do not give if Absolute Neutrophil Count (ANC) is 1 k/cmm or less OR platelet count is 50 k/cmm or less. diazePAM (VALIUM) injection 5 mg 5 mg, Intravenous, ONCE, On Marleny 06/15/24 at 0345, For 1 dose, rate of IV push: do not exceed, in children 1-2 mg/min; in adults 5 mg/min Given 06/15/2024 3:22 AM CDT 5 mg diphenhydrAMINE (BENADRYL) injection 25 mg 25 mg, Intravenous, ONCE, On Marleny 06/15/24 at 0215, For 1 dose Given 06/15/2024 2:43 AM CDT 25 mg pantoprazole (PROTONIX IV) 40 mg in sodium chloride 0.9% 10 mL IV push 40 mg, Intravenous, Administer over 2 Minutes, ONCE, On Marleny 06/15/24 at 0215, For 1 dose, Add 10 mL of 0.9% sodium chloride to 40 mg vial of pantoprazole for a final concentration of 4 mg/mL Give IV push over 2 minutes OR infuse over 10 minutes via a syringe pump. Given 06/15/2024 2:46 AM CDT 40 mg polyethylene glycol (MIRALAX) oral powder 17 g 17 g, Oral, DAILY PRN, Constipation, No stool in the last 2 days, Starting on Marleny 06/15/24 at 0522, Until Marleny 06/15/24 at 0832, Cumulative bowel medication orders. Administer based on medications available on JAN. If no stool in last day start Senna BID PRN no stool, if no stool in last 2 days add Miralax DAILY PRN no stool, if no stool in last 3 days add bisacodyl suppository DAILY PRN until patient stools. When patient stools, stop giving PRN meds and continue monitoring for bowel activity. When no stools X 1 day, begin regimen again until patient stools. potassium chloride 10 mEq/100 mL IVPB 10 mEq, Intravenous, Administer over 60 Minutes, Q1H, First dose on Marleny 06/15/24 at 0400, For 2 doses Started 06/15/2024 5:30 AM CDT 10 mEq 100 mL/hr Rate/Dose Change 06/15/2024 3:43 AM CDT 80 mL/h r Started 06/15/2024 3:38 AM CDT 10 mEq 100 mL/hr senna (SENOKOT) tablet 2 Tablet 2 Tablet, Oral, BID PRN, Constipation, No stool in the last day, Starting on Marleny 06/15/24 at 0522, Until Marleny 06/15/24 at 0832, Cumulative bowel medication orders. Administer based on medications available on JAN. If no stool in last day start Senna BID PRN no stool, if no stool in last 2 days add Miralax DAILY PRN no stool, if no stool in last 3 days add bisacodyl suppository DAILY PRN until patient stools. When patient stools, stop giving PRN meds and continue monitoring for bowel activity. When no stools X 1 day, begin regimen again until patient stools. sodium chloride 0.9% bolus 1,000 mL 1,000 mL, Intravenous, Administer over 0.6 Hours, ONCE, On Marleny 06/15/24 at 0215, For 1 dose Started 06/15/2024 2:41 AM CDT 1,000 mL documented in this encounter Active and Recently Administered Medications Times are shown in CDT. Scheduled Medication Order 06/13/2024 06/14/2024 06/15/2024 Adult Magnesium Replacement Protocol: goal 2 mg/dL MAR placement lugo for Magnesium Replacement Protocol: see nursing protocol and med replacement orders., Q8H, First dose on Marleny 06/15/24 at 0800 Adult Potassium Replacement Protocol: goal 3.5 mmol/L MAR placement lugo for Potassium Replacement Protocol: see nursing protocol and med replacement orders., Q8H, First dose on Marleny 06/15/24 at 0800 diazePAM (VALIUM) injection 5 mg (COMPLETED) 5 mg, Intravenous, ONCE, On Marleny 06/15/24 at 0345, For 1 dose, rate of IV push: do not exceed, in children 1-2 mg/min; in adults 5 mg/min 0322 (Given - Provid er: Marcel Aguirre RN) diphenhydrAMINE (BENADRYL) injection 25 mg (COMPLETED) 25 mg, Intravenous, ONCE, On Marleny 06/15/24 at 0215, For 1 dose 0243 (Given - Provid er: Marcel Aguirre RN) pantoprazole (PROTONIX IV) 40 mg in sodium chloride 0.9% 10 mL IV push (COMPLETED) 40 mg, Intravenous, Administer over 2 Minutes, ONCE, On Marleny 06/15/24 at 0215, For 1 dose, Add 10 mL of 0.9% sodium chloride to 40 mg vial of pantoprazole for a final concentration of 4 mg/mL Give IV push over 2 minutes OR infuse over 10 minutes via a syringe pump. 0246 (Given - Provid er: Marcel Aguirre RN) potassium chloride 10 mEq/100 mL IVPB (COMPLETED) 10 mEq, Intravenous, Administer over 60 Minutes, Q1H, First dose on Marleny 06/15/24 at 0400, For 2 doses 0338 (Started - Prov ider: Marcel Aguirre RN)0343 (Rate/Dose Change - Provider: Marcel Aguirre RN)0510 (Infused - Provider: Marcel Aguirre RN)0530 (Started - Provider: Marcel Aguirre RN)0600 (Infused - Provider: Marcel Aguirre RN) sodium chloride 0.9% bolus 1,000 mL (COMPLETED) 1,000 mL, Intravenous, Administer over 0.6 Hours, ONCE, On Marleny 06/15/24 at 0215, For 1 dose 0241 (Started - Prov ider: Marcel Aguirre RN)0335 (Infused - Provider: Marcel Aguirre RN) PRN Medication Order 06/13/2024 06/14/2024 06/15/2024 acetaminophen (TYLENOL) tablet 650 mg 650 mg, Oral, Q6H PRN, Pain/Fever, fever greater than 101 F, Starting on Marleny 06/15/24 at 0522, Until Marleny 06/15/24 at 0832, Give for mild pain (pain score 1-4) or if patient prefers acetaminophen over other options for pain (all pain scores). benzocaine-menthol (Chloraseptic) lozenge 1 Lozenge 1 Lozenge, Oral, Q2H PRN, Throat Pain, Starting on Wed06/15/24 at 0522, Until Marleny 06/15/24 at 0832 bisacodyl (DULCOLAX) rectal suppository 10 mg(Linked Group 1) 10 mg, Rectal, DAILY PRN, Constipation, No stool in the last 3 days, Starting on Wed06/15/24 at 0522, Until Wed06/15/24 at 0832, Cumulative bowel medication orders. Administer based on medications available on JAN. If no stool in last day start Senna BID PRN no stool, if no stool in last 2 days add Miralax DAILY PRN no stool, if no stool in last 3 days add bisacodyl suppository DAILY PRN until patient stools. When patient stools, stop giving PRN meds and continue monitoring for bowel activity. When no stools X 1 day, begin regimen again until patient stools. Do not give if Absolute Neutrophil Count (ANC) is 1 k/cmm or less OR platelet count is 50 k/cmm or less. calcium carbonate (TUMS) chewable tablet 500 mg 500 mg, Oral, Q4H PRN, Heartburn, Upset Stomach, Starting on Wed06/15/24 at 0522, Until Marleny 06/15/24 at 0832, Each tablet provides 200 mg elemental calcium guaiFENesin (ROBITUSSIN) oral liquid 10 mL 10 mL, Oral, Q4H PRN, Cough, Starting on Wed06/15/24 at 0522, Until Marleny 06/15/24 at 0832 melatonin tablet 3 mg 3 mg, Oral, HS PRN, Other, Mild insomnia, Starting on Wed06/15/24 at 0522, Until Marleny 06/15/24 at 0832 nystatin (MYCOSTATIN) [id number] UNIT/GM topical powder Topical, BID PRN, Other, for rash due to yeast, Starting on Wed06/15/24 at 0522, Apply topically to affected area. Hazardous waste disposal required. polyethyl-propylene glycol (SYSTANE) 0.4-0.3 % ophthalmic solution 1 Drop 1 Drop, Both Eyes, Q1H PRN, Dry Eyes, Itchy Eyes, Starting on Wed06/15/24 at 0522, Until Wed06/15/24 at 0832 polyethylene glycol (MIRALAX) oral powder 17 g(Linked Group 1) 17 g, Oral, DAILY PRN, Constipation, No stool in the last 2 days, Starting on Wed06/15/24 at 0522, Until Wed06/15/24 at 0832, Cumulative bowel medication orders. Administer based on medications available on JAN. If no stool in last day start Senna BID PRN no stool, if no stool in last 2 days add Miralax DAILY PRN no stool, if no stool in last 3 days add bisacodyl suppository DAILY PRN until patient stools. When patient stools, stop giving PRN meds and continue monitoring for bowel activity. When no stools X 1 day, begin regimen again until patient stools. senna (SENOKOT) tablet 2 Tablet(Linked Group 1) 2 Tablet, Oral, BID PRN, Constipation, No stool in the last day, Starting on Wed06/15/24 at 0522, Until Wed06/15/24 at 0832, Cumulative bowel medication orders. Administer based on medications available on JAN. If no stool in last day start Senna BID PRN no stool, if no stool in last 2 days add Miralax DAILY PRN no stool, if no stool in last 3 days add bisacodyl suppository DAILY PRN until patient stools. When patient stools, stop giving PRN meds and continue monitoring for bowel activity. When no stools X 1 day, begin regimen again until patient stools. sodium chloride (OCEAN) 0.65 % nasal solution 1 Voss 1 Voss, Both Nostrils, Q2H PRN, Dry Nose, Starting on Wed06/15/24 at 0522, Until Wed06/15/24 at 0832 Linked Groups Order Group 1: senna (SENOKOT) tablet 2 TabletJump to med 2 Tablet, Oral, BID PRN, Constipation, No stool in the last day, Starting on Wed06/15/24 at 0522, Until Wed06/15/24 at 0832, Cumulative bowel medication orders. Administer based on medications available on JAN. If no stool in last day start Senna BID PRN no stool, if no stool in last 2 days add Miralax DAILY PRN no stool, if no stool in last 3 days add bisacodyl suppository DAILY PRN until patient stools. When patient stools, stop giving PRN meds and continue monitoring for bowel activity. When no stools X 1 day, begin regimen again until patient stools. And polyethylene glycol (MIRALAX) oral powder 17 gJump to med 17 g, Oral, DAILY PRN, Constipation, No stool in the last 2 days, Starting on Marleny 06/15/24 at 0522, Until Marleny 06/15/24 at 0832, Cumulative bowel medication orders. Administer based on medications available on JAN. If no stool in last day start Senna BID PRN no stool, if no stool in last 2 days add Miralax DAILY PRN no stool, if no stool in last 3 days add bisacodyl suppository DAILY PRN until patient stools. When patient stools, stop giving PRN meds and continue monitoring for bowel activity. When no stools X 1 day, begin regimen again until patient stools. And bisacodyl (DULCOLAX) rectal suppository 10 mgJump to med 10 mg, Rectal, DAILY PRN, Constipation, No stool in the last 3 days, Starting on Marleny 06/15/24 at 0522, Until Marleny 06/15/24 at 0832, Cumulative bowel medication orders. Administer based on medications available on JAN. If no stool in last day start Senna BID PRN no stool, if no stool in last 2 days add Miralax DAILY PRN no stool, if no stool in last 3 days add bisacodyl suppository DAILY PRN until patient stools. When patient stools, stop giving PRN meds and continue monitoring for bowel activity. When no stools X 1 day, begin regimen again until patient stools. Do not give if Absolute Neutrophil Count (ANC) is 1 k/cmm or less OR platelet count is 50 k/cmm or less. documented in this encounter Care Teams [employer] Rol[employer] Hand Relationship Specialty Start [place] [id number] [address] [address] PCP - General Family Practice 06/14/24 documented as of this encounter
--- OUTSIDE RECORDS SUMMARY | 2024-09-21 22:48 | XMS_ITS | Encounter Summary ---
Author Organization [facility] Address [address], [place] [address] Care Team Providers Care [employer]ge Utility Worker Name Role Phone Segundo Mcclelland MD Primary Care Provider [phone] Encounter Details Date Type Department Care Team (Late st Contact Info) Description 12/07/2012 Consent for Procedure/Treatme nt [facility] INFORMED CONSENT RECORD Social History Tobacco Use [...] as of this encounter Progress Notes * [facility], PROVIDER - 12/07/2012 12:00 AM CST EILLANCE AGENT documented in this encounter Plan of Treatment Not on file documented as of this encounter Visit Diagnoses Not on filedocumented in this encounter Care Teams Forge Utility Worker Relationship Specialty Start [place] [id number] [place] [address] PCP - General Family Practice 06/14/24 documented as of this encounter
--- OUTSIDE RECORDS SUMMARY | 2024-09-21 22:48 | XMS_ITS ---
Author Organization [place] Address [facility] [place] [address] Care Team Providers Care Retail Associate Manager Bilingual Name Role Phone Segundo Mcclelland MD Unavailable [phone] Segundo Mcclelland MD Unavailable [phone] Segundo Mcclelland MD Primary Care Provider + Kingsley Garcia MD Unavailable + [phone] Segundo Mcclelland MD Unavailable [phone] Master Shea PA-C Unavailable Allyssa Justice MD Unavailable [phone] Genaro Christian MD Unavailable Master Shea PA-C Unavailable Sienna Guillermo DO Unavailable [phone] Allyssa Justice MD Unavailable [phone] Declan Leavitt MD Unavailable Ugo Ochoa MD Unavailable Primary Care Care Coordination Status:Declined (Declined) Start date:06/26/2024 End date:06/26/2024 Decline reason:Not interested Continued Care and Services Coordination
--- OUTSIDE RECORDS SUMMARY | 2024-09-21 22:48 | XMS_ITS | Clinical Summary ---
Author Organization [facility] Address [address] [place] [address] Phone Care Team Providers Care Calender Let Off Helper Name Role Phone Unavailable Primary Care Provider Unavailabl e Social History Tobacco Use Types Packs/Day Years Used Date Smoking Tobacco: Never Assessed Sex and Gender Information Value Date Recorded Sex Assigned at Not on file Gender Identity Not on file Sexual Orientation Not on file Plan of Treatment Health Maintenance Due Date Last Done Comments Pneumococcal PPSV23 Highest Risk Adult (2 of 3 - PCV13) 10/13/2009 10/13/2008 Influenza Vaccine (#1) 2024 8, 10/17/2013, 12/08/2012, Additional history exists
--- OUTSIDE RECORDS SUMMARY | 2024-09-21 22:48 | XMS_ITS ---
Author Organization [place] Address [facility] [place] [address] Care Team Providers Care Wire Rope Fabrication Supervisor Name Role Phone Segundo Mcclelland MD Unavailable [phone] Segundo Mcclelland MD Unavailable [phone] Segundo Mcclelland MD Primary Care Provider + Kingsley Garcia MD Unavailable Segundo Mcclelland MD Unavailable [phone] Master Shea PA-C Unavailable Allyssa Justice MD Unavailable [phone] Genaro Christian MD Unavailable Master Shea PA-C Unavailable Sienna Guillermo DO Unavailable [phone] Allyssa Justice MD Unavailable [phone] Declan Leavitt MD Unavailable Ugo Ochoa MD Unavailable Primary Care Care Coordination Status:Closed (Closed) Start date:06/21/2024 End date:06/23/2024 Close reason:Unable to reach patient Continued Care and Services Coordination
--- OUTSIDE RECORDS SUMMARY | 2024-09-21 22:48 | XMS_ITS | Clinical Summary ---
[facility] Address [address], [place] [address] Care Team Providers Care Scheduling Assistant Name Role Phone Segundo Mcclelland MD Primary Care Provider [phone] Source Comments You are receiving this document as you are listed as the primary care provider,follow-up provider, or the patient has been referred to you for consultation.This is in compliance with the Medicare andTrihealthcaid EHR Incentive Program,which states Providers who transition their patient to another setting of careor provider of care or refers their patient to another provider of care shouldprovide summary care record for each transition of care or referral. ProtectWise Allergies Active Allergy Reactions Criticality Noted Date [...] (NARCAN) 4 MG/0.1ML nasal spray Place 1 Lodi (4 mg) into one nostril as needed (for suspected overdose). Call 911. Repeat in opposite nostril in 3 minutes if no or minimal response. 2 Each 06/28/2023 Active Active Problems Problem Noted Date Diagnosed Date Chronic blood loss anemia 06/15/2024 Abdominal pain, epigastric 06/28/2023 Nausea and vomiting 06/28/2023 Intractable vomiting 06/27/2023 Opioid use disorder, moderate, dependence 2019 Overview (06/28/2023): Hx of narcotic use disorder in 2013 [...] Left lumbar radiculopathy 07/09/2016 Pulmonary embolus 05/07/2014 Overview (07/25/2014): See notes 07/19/14 She should have DVT prophylaxis at times of high risk Factitious disorder with physical symptoms 05/04 Mixed personality disorder 05/01/2014 Kathleen-Mustafa tear 12/05/2012 Headache 12/05/2012 Syncope 12/05/2012 Narcotic abuse 08/11/2012 Obesity 08/06/2012 Abdominal pain 08/04/2012 Overview (07/21/2017): Abdominal pain, c diff colitis Hematemesis 08/04/2012 Liver enzyme elevation 03/01/2012 GERD (gastroesophageal reflux disease) 2 Insomnia 02/05/2012 Drug-seeking behavior 01/11/2012 Headache 01/09/2012 Overview (07/21/2017): Headache(784.0) Shortness of breath 01/08/2012 Anemia 01/08/2012 Syncope 01/08/2012 Concussion with brief loss of consciousness 12/30 Abdominal pain 12/14/2011 Status post laparoscopy 12/11/2011 Gastroenteritis 12/11/2011 Munchausen syndrome 09/17/2009 Overview (07/21/2017): Munchausen syndrome by proxy (parents of pt) Nephrolithiasis 06/01/2008 High-risk supervision 05/26/2008 GBS (group B streptococcus) infection 05/22/2008 Overview (05/22/2008): Pos unrine culture 05/14/08 Seizure 05/03/2008 Hyperemesis gravidarum 05/03/2008 Abdominal pain 05/03/2008 CONVERSION DX 12/04/2005 Overview (07/21/2017): LW Onset: 89Keh76 ; LW Uncoded Problem, needs review: Postural Otrhostatic Hypotension Syndrom Posttraumatic stress disorder 09/14/2005 Overview (07/21/2017): LW Onset: 97Iaj65 ; Post Traumatic Stress Disorder Prolonged Major depressive disorder, single episode 2004 Overview (07/21/2017): LW Onset: 01Dhh18 ; Depression Major NOS Borderline personality disorder 09/14/2005 Overview (07/21/2017): LW Onset: 50Sxy19 ; Borderline Personality Insomnia 09/14/2005 Overview (07/21/2017): LW Onset: 72Pnr28 ; Insomnia NOS Eating disorder 09/18/2004 Overview (07/21/2017): Eating Disorder NOS Resolved Problems Problem Noted Date Diagnosed Date Resolved Date Esophagitis 06/15/2024 06/16/2024 Streptococcal pharyngitis 06/04/2017 Anisocoria 08/11/2012 08/11/2012 Stomatitis 08/06/2012 08/09/2012 Nausea & vomiting 08/04/2012 08/09/2012 Diarrhea 08/04/2012 05/07/2024 Gastroenteritis 08/03/2012 08/09/2012 Cholestasis of 05/05/2012 Cholestasis of 04/01/201205/2012 contractions 03/24/2012 012 complicated by anemia 02/05/2012 02/05/2012 Anemia complicating pregnanc y in third trimester 02/05/2012 05/24/2012 Large for dates complicating , antepartum 01/27/2012 05/24/2012 Tachycardia 01/08/2012 05/24/2012 Overview (07/21/2017): Tachycardia -sinus tachycardia with Current with histo ry of labor 01/08/2012 05/24/2012 Incompetent cervix 12/10/2011 2 Cervical cerclage suture present 12/10/2011 02/05/2012 Mild hyperemesis gravidarum 12/10/2011 12/10/2011 Overview (07/30/2016): Previous hospitalization Abdominal pain complicating 12/10/2011 05/24/2012 Overview (07/30/2016): laparoscopy 18 wks, lysis RLQ adhesions, normal adnexa Hx of delivery, currently 12/10/2011 05/24/2012 Overview (07/30/2016): 32 week delivery, cerclage Iron deficiency anemia 12/07/200504/22 Overview (07/21/2017): LW Onset: 20Byc86 ; Anemia Iron Deficiency Asthma 09/27/2005 01/08/2017 Generalized anxiety disorder 09/14/2005 01/28/2007 Overview (07/21/2017): LW Onset: 05Yrj86 ; Anxiety Disorder Generalized Acute hypokalemia 09/14/2005 06/16/2024 Overview (07/21/2017): LW Onset: 19Omv22 ; Hypokalemia Nonspecific abnormal results of liver function study 09/14/2005 01/28/2007 Overview (07/21/2017): LW Onset: 00Aae66 ; Liver Function Tests Abnormal Hematemesis 12/13/2004 04/13/2005 Overview (07/30/2016): LW Onset: 47Dkl00 Bipolar 2 disorder 09/18/2004 0 Overview (07/21/2017): Bipolar I Depressed NOS Immunizations Name Administration Dates Next Due Flu Vac (3+ yrs) 10/17/2013, 3,08/29/2010,2007 HepA Adult (19+ yrs) 03/16/2005 HepB Adult (Engerix-B, 20+ y rs, 3 dose series) 08/13/2000,07/08/2000 HepB Ped/Adol (0-18 yrs) 03/16/2005,08/13/2000,0 07/16/2000 HepB, Unspecified Formulation 03/16/2005 IPV (Polio) 03/16/2005,09/07/1991 Influenza ([place] Only) (Flul aval Quad 0.5, 3+ yrs) 09/17/2012 Influenza V8Z9-32 09/26/2012 Influenza IIV4 (Quadrivalent ) 0.5mL (13318) 08/15/2018,09/26/2012 Influenza, Unspecified Formulation 08/29/2012 MCV4 (Menactra) [...] Time Taken Comments Blood Pressure 136/77 06/15/2024 6:27 AM CDT Pulse 102 06/15/2024 6:27 AM CDT Temperature 36.7 ??C (98 ??F) 06/15/2024 6:27 AM CDT Respiratory Rate 16 06/15/2024 6:27 AM CDT Oxygen Saturation 99% 06/15/2024 6:27 AM CDT Inhaled Oxygen Concentration - - [...] Cancer Screening Due 05/25/2012 05/24/2012, 05/22/2008, 05/22/2008 DTaP/Tdap/Td (3 - Tdap) 02/06/2024 02/06/20 14, 03/16/2005, 07/16/2000, Additional history exists COVID-19 Vaccine ( season) 2024 02/03/2021 Influenza (#1) 2024 08/15/2018, 09/29, 12/08/2012, Additional history exists Zoster/Shingles (1 of 2) 2035 HepB Completed 03/16/2005, 02/27, 08/13/2000, Additional history exists MCV4 Aged Out 03/16/2005, 03/16/2005 No lo nger eligible based on patient's age to complete this topic Pneumococcal Aged Out 12/08/2012, 09/29, 09/23/2006 No longer eligible based on patient's age to complete this topic HIV Screening (Preventive Services) Completed 10/02/2013, 11/24/2012, 01/06/2012, Additional history exists HPV Vaccine Aged Out No longer eligi ble based on patient's age to complete this topic Hib Aged Out No longer eligi ble based on patient's age to complete this topic RSV Aged Out No longer eligi ble based on patient's age to complete this topic Procedures Procedure Name Priority Date/Time Associated Diagnosis Comments ANATOMICAL PATH LIQUID BASED Routine 05/24/2012 8:54 AM CDT HIV ANTIBODY Routine 01/06/2012 10:04 AM COMPARATOR OPERATOR Special screening examination for other specified viral diseases Screening examination for venereal disease from Last 3 Months or Most Recently Relevant to Health Maintenance Results * Pap Smear (05/24/2012 8:54 AM CDT) 05/24/2012 8:54 AM CDT Narrative HP CONVERSION - 05/28/2012 4:38 PM CDT Final GYNECOLOGICAL CYTOLOGY REPORT Pathology #: [id number] ?Date Obtained: 05/24/2012 ? Date Received: 05/25/2012 [...] End of Report Kin Waite MD LAB_1 Performing Organization Address City/[facility] Co de Phone Number HP CONVERSION * HIV ANTIBODY (01/06/2012 10:04 AM COMPARATOR OPERATOR) HIV 1/HIV 2 Non-React Non-Reacti ve HP CONVERSION 01/06/2012 10:0 4 AM COMPARATOR OPERATOR 01/06/2012 12:06 PM COMPARATOR OPERATOR Kin Waite MD LAB_1 Performing Organization Address City/State/[facility] Co de Phone Number HP CONVERSION from Last 3 Months or Most Recently Relevant to Health Maintenance [place] [employer] Personal/Family Self 12/23/1984 [address] [facility] [address]Joseph Contreras, Sandi Personal/Family Self 1985 [id number] [facility] [place] [address]Joseph Contreras, Sandi Personal/Family Self 1985 [id number] [facility] [place] [id number] Contreras, Sandi Personal/Family Self 1985 [address] [place] [address] Davefahad, Sandi Personal/Family Self 1985 [address] [facility] [place] [id number] Contreras, Sandi Personal/Family Self 1985 [id number] [place] [address] John, Asndi MVA/TPL Self 1985 [id number] [facility] [place] [address] John, Sandi MVA/TPL Self 1985 [address] [place] [address] John Sandi MVA/TPL Self 1985 [id number] [place] [address] Davejuddmaria dnallely, Sandi MVA/TPL Self 1985 [id number] [place] [address] Davefahad, Sandi MVA/TPL Self 1985 [address] [place] [address] Davefahad, Sandi MVA/TPL Self 1985 [address] [place] [address] Sandi Contreras MVA/TPL Self 1985 [address] [address] [place] [address] Advance Directives * Full Code (Latest Code [...] 10:20 PM 12/09/2012 7:06 PM Care Teams Scheduling Assistant Relationship Specialty Start [place] [address] [address] [place] [address] PCP - General Family Practice 06/14/24
--- OUTSIDE RECORDS SUMMARY | 2024-09-21 22:48 | XMS_ITS | Encounter Summary ---
Author Organization [employer] Address [address] [place] [address] Care Team Providers Care Fish Hatchery Man Name Role Phone Segundo Mcclelland MD Primary Care Provider [phone] Reason for Visit * Reason Comments Questions Encounter Details Date Type Department Care Team (Late st Contact Info) Description 07/12/2016 Telephone [facility] [address] [place], [place] [address] Jose Caldwell MD [address] [place], [place] [address] Questions Social History Tobacco Use Types Packs/Day [...] was not happy about her visit the [facility]. She was given the same medication that [...] they would do anything different for her. ERY FACTORY WORKER documented in this encounter Plan of Treatment Not on file documented as of this encounter Visit Diagnoses Not on filedocumented in this encounter Care Teams Fish Hatchery Man Relationship Specialty Start [place] [address] [place] [address] PCP - General Family Practice 06/14/24 documented as of this encounter
--- OUTSIDE RECORDS SUMMARY | 2024-09-21 22:48 | XMS_ITS | Encounter Summary ---
Author Organization [facility] Address [address] [address] Care Team Providers Care Tooling Supervisor Name Role Phone Segundo Mcclelland MD Primary Care Provider [phone] Encounter Details Date Type Department Care Team [...] on filedocumented in this encounter Care Teams Tooling Supervisor Relationship Specialty Start [place] [address] [place] [address] PCP - General Family Practice 06/14/24 documented as of this encounter
--- OUTSIDE RECORDS SUMMARY | 2024-09-21 22:48 | XMS_ITS | Encounter Summary ---
Author Organization [place] Address [address] [place] [address] Care Team Providers Care Liner Worker Name Role Phone Taylor Cardozo [facility] Primary Care Provider None [facility] Jennifer Montejo MD Primary Care Provider [phone] Nimo Wetzel MD Primary Care Provider + Kin Waite MD Primary Care Provider [phone] [facility] Primary Care Prov ider Uyen Palm MD Primary Care Provider [phone] Milady Oakes MD Primary Care Provider + [facility] Primary Care Provider [facility] Primary Care Pro vider No Ref-Primary, Physician Primary Care Provider [facility] Care Provide r Villa Santamaria PA-C Unavailable + Villa Santamaria PA-C Unavailable + Segundo Mcclelland MD Unavailable + Segundo Mcclelland MD Unavailable + No Ref-Primary, Physician Primary Care Provider [facility] Primary Care Provide r Villa SantamariaC Unavailable [phone] Segundo Mcclelland MD Unavailable + Segundo Mcclelland MD Primary Care Provider + Sienna Guillermo DO Unavailable + Sandy Cox APRN MANAGER HOME Unavailable + Segundo Mcclelland MD Unavailable + Sienna Guillermo DO Unavailable [phone] Malia Dhillon MD Primary Care Provider [phone] No Ref-Primary, Physician Primary Care Provider Mai UrenaC Unavailable [phone] Segundo Mcclelland MD Unavailable + Segundo Mcclelland MD Unavailable + Qamar Jackson MD Unavailable Segundo Mcclelland MD Primary Care Provider + Amy Montes De Oca RN Unavailable [phone] Gregorio Dalton-C Unavailable + [phone] Kingsley Garcia MD Unavailable [phone] Segundo Mcclelland MD Unavailable + Master Shea PA-C Unavailable Allyssa Justice MD Unavailable [phone] Genaro Christian MD Unavailable [phone] Master Shea-C Unavailable Sienna Quiroga DO Unavailable [phone] Allyssa Justice MD Unavailable [phone] Declan Leavitt MD Unavailable Ugo Ochoa MD Unavailable Encounter Details Date Type Department Care Team (Late st Contact Info) Description 10/17/2005 [address] [place] [address] Taylor Cardooz APRN [facility] [address] [place] [address] Social History Tobacco Use Types [...] AM CDT Legal Sex Female 3:29 AM FACULTY CRIMINAL JUSTICE Gender Identity Female 05/26/2021 10:37 AM CDT [...] 02/20/2025 10:20 AM CDT Appointment [facility] [address] [facility] [address] [place] [phone] Allyssa Justice MD [facility] [address] [place] [address] [place] [address] 02/27/2025 10:40 AM CDT Virtual Visit [facility] [address], [place] [address] [facility] [place] [phone] Allyssa Justice MD [facility] [address] [place] [address] documented as of this encounter Visit Diagnoses Not on filedocumented in this encounter Additional Health Concerns Infection Onset Date Last Indicated Resolved Time Rule Out COVID-19 02/29/2020 02/29/2020 03/01/2020 9:51 PM CDT Rule Out COVID-19 05/05/2020 05/05/2020 05/06/2020 2:19 AM CDT Rule Out COVID-19 08/20/2020 08/20/2020 08/21/2020 10:31 PM CDT Rule Out COVID-19 10/27/2020 10/27/2020 11/17/2020 11:39 PM FACULTY CRIMINAL JUSTICE Rule Out COVID-19 12/23/2020 12/24/2020 12/24/2020 2:08 AM FACULTY CRIMINAL JUSTICE Rule Out COVID-19 01/24/2021 01/24/2021 01/24/2021 9:18 PM FACULTY CRIMINAL JUSTICE Rule Out COVID-19 10/27/2022 10/27/2022 10/27/2022 3:19 AM FACULTY CRIMINAL JUSTICE Influenza 10/27/2022 10/27/2022 11/03/2022 11:4 0 PM FACULTY CRIMINAL JUSTICE Rule Out COVID-19 01/04/2023 01/04/2023 01/04/2023 8:32 PM FACULTY CRIMINAL JUSTICE Rule Out C-difficile 01/04/2023 01/04/2023 023 1:46 AM FACULTY CRIMINAL JUSTICE Rule Out C-difficile 01/07/2023 01/07/2023 023 8:18 PM FACULTY CRIMINAL JUSTICE Rule Out C-difficile 06/04/2023 06/04/2023 023 11:28 AM CDT Rule Out Eleonora auris 06/04/2023 06/04/202306/07 9:24 AM CDT ESBL 10/23/2023 05/26/2024 Rule Out COVID-19 11/10/2023 11/10/2023 11/10/2023 7:17 PM FACULTY CRIMINAL JUSTICE Rule Out COVID-19 01/18/2024 01/18/2024 01/18/2024 8:53 PM FACULTY CRIMINAL JUSTICE Rule Out COVID-19 01/28/2024 01/28/2024 01/28/2024 10:22 PM FACULTY CRIMINAL JUSTICE Rule Out COVID-19 02/17/2024 02/17/2024 02/17/2024 5:07 PM CDT Rule Out COVID-19 04/22/2024 04/22/2024 04/23/2024 12:06 AM CDT documented as of this encounter Care Teams Liner Worker Relationship Specialty Start Date End Date Taylor Cardozo APRN MANAGER HOME [address] [place] [address] PCP - General 01/11/04 09/22/10 None PCP - General 09/23/10 09/02/11 Jennifer Escobedo MD [address] [address] [place] [address] PCP - General show jumping instructor 09/03/11 11/01/11 Nimo Wetzel MD [address] [place] [address] PCP - General 11/02/11 04/17/12 Kin Waite MD [address] [address] [place] [address] PCP - General show jumping instructor 04/18/12 11/22/[address], [facility] [address] [place] [phone] PCP - General 11/23/12 11/25/13 Uyen Palm MD [address] [facility] [address] [address] [place], [place] [id number] PCP - General show jumping instructor 11/26/13 09/02/14 Milady Oakes MD [facility] [address] [place] [address] PCP - General Family Practice 09/03/14 09/20/15 [facility] [address] [place] [address] PCP - General 09/21/15 07/10/17 [facility] [address] [place] [address] PCP - General 07/11/17 01/19/18 No Ref-Primary, Physician PCP - General 01/20/18 04/30/18 [facility] [place] [address] PCP - General 05/01/18 09/24/20 Villa Santamaria PA-C [address] [place] [address] PCP - Assigned PCP 05/01/18 01/31/19 No Ref-Primary, Physician PCP - General 09/25/20 09/26/20 [facility] LAB[place]LLING [place] [address] PCP - General 09/27/20 08/16/21 [place] [address] [place] [address] PCP - General Family Medicine 08/17/21 10/26/22 [place] [address] [address] [place] [address] PCP - General Family Medicine 10/27/22 10/27/22 No Ref-Primary, Physician PCP - General 11/06/22 04/21/23 [place] [address] [address] [place], [place] [address] PCP - General Family Medicine 04/22/23 Villa Santamaria PA-C [address] [place] [address] Assigned PCP 05/01/18 08/19/19 [place] [address] [address] [place], [place] [address] Assigned PCP 08/20/19 03/16/20 [place] [address] [address] [place], [place] [address] Assigned PCP 03/17/20 03/15/21 Villa Santamaria PA-C [address] [address] [place], [place] [address] Assigned PCP 03/16/21 05/03/21 [place] [address] [place] [address] Assigned PCP 05/04/21 01/17/22 Sienna Guillermo DO [address] [place] [address] Assigned Heart and Vascular Provider 09/21/21 10/04/21 Sandy Cox APRN CNP [address] [place] [address] Assigned Heart and Vascular Provider 10/05/21 09/04/22 [place] [address] [place] [address] Assigned PCP 01/18/22 10/30/22 Sienna Guillermo DO [address] [place] [address] Assigned Heart and Vascular Provider 09/05/22 03/12/23 Mai Urena PA-C [address] [facility] [place] [address] Assigned PCP 10/31/22 01/22/23 [place] [address] [place] [address] Assigned Pain Medication Provider 12/07/22 [place] [address] [place] [address] Assigned PCP 01/23/23 [place] [address] [place] [address] Assigned Musculoskeletal Provider 01/23/23 09/19/24 Amy Montes De Oca, RN Clinic Chamfering Machine Operator 05/13/2305/17 Gregorio Dalton PA-C [address] [place] [place] [address] Assigned Surgical Provider 05/22/23 07/20/24 Kingsley Garcia MD [address] [place] [address] Assigned Heart and Vascular Provider 08/07/23 [place] [address] [address] [place] [address] Family Medicine 09/10/23 Master Shea PA-C [address] [place] [place] [address] Physician Steward/Stewardess Smoke Room Gastroenterology 09/10/23 Allyssa Justice MD [facility] [address] [address] [place] [address] Hematology & Oncology 12/10/23 Genaro Christian MD [address] [place], [place] [address] Cardiovascular Disease 12/22/23 Master Shea PA-C [address] [place] [address] Assigned Gastroenterology Provider 12/23/23 Sienna Guillermo DO [address] [place] [address] Physician Cardiovascular Disease 01/18/24 Allyssa Justice MD [facility] [address] [place] [address] Assigned Cancer Care Provider 03/21/24 Declan Leavitt MD [address] [place] [address] Assigned Surgical Provider 07/21/24 Ugo Ochoa MD [address] [place], [place] [address] Assigned Neuroscience Provider 09/20/24 documented as of this encounter
--- OUTSIDE RECORDS SUMMARY | 2024-09-21 22:48 | XMS_ITS | Encounter Summary ---
Author Organization [facility] Address [address], [place] [address] Care Team Providers Care Golf Club Weigher Name Role Phone Segundo Mcclelland MD Primary Care Provider [phone] Encounter Details Date Type Department Care Team (Late st Contact Info) Description 12/06/2012 Consent for Procedure/Treatme nt [facility] INFORMED [...] as of this encounter Progress Notes * [facility], PROVIDER - 12/06/2012 12:00 AM CST R VEHICLE EXAMINER documented in this encounter Plan of Treatment Not on file documented as of this encounter Visit Diagnoses Not on filedocumented in this encounter Care Teams Golf Club Weigher Relationship Specialty Start [place] [address] [place] [address] PCP - General Family Practice 06/14/24 documented as of this encounter
--- OUTSIDE RECORDS SUMMARY | 2024-09-21 22:48 | XMS_ITS ---
Author Organization [place] Address [facility] [place] [address] Care Team Providers Care [employer] Senior Sergeant Name Role Phone Segundo Mcclelland MD Unavailable [phone] Segundo Mcclelland MD Unavailable [phone] Segundo Mcclelland MD Primary Care Provider + Kingsley Garcia MD Unavailable Segundo Mcclelland MD Unavailable [phone] Master Shea PA-C Unavailable Allyssa Justice MD Unavailable [phone] Genaro Christian MD Unavailable [phone] Master Shea PA-C Unavailable Sienna Guillermo DO Unavailable [phone] Allyssa Justice MD Unavailable [phone] Declan Leavitt MD Unavailable Ugo Ochoa MD Unavailable Primary Care Care Coordination Status:Closed (Closed) Start date:07/17/2024 End date:07/18/2024 Close reason:Unable to reach patient Continued Care and Services Coordination
--- OUTSIDE RECORDS SUMMARY | 2024-09-21 22:48 | XMS_ITS ---
Author Organization [place] Address [facility] [place] [address] Care Team Providers Care Business Continuity Planning Director Name Role Phone Segundo Mcclelland MD Unavailable [phone] Segundo Mcclelland MD Unavailable [phone] Segundo Mcclelland MD Primary Care Provider + Kingsley Garcia MD Unavailable Segundo Mcclelland MD Unavailable [phone] Master Shea PA-C Unavailable Allyssa Justice MD Unavailable [phone] Genaro Christian MD Unavailable Master Shea PA-C Unavailable Sienna Guillermo DO Unavailable [phone] Allyssa Justice MD Unavailable [phone] Declan Leavitt MD Unavailable Ugo Ochoa MD Unavailable Primary Care Care Coordination Status:Closed (Closed) Start date:09/13/2024 End date:09/15/2024 Close reason:Unable to reach patient Continued Care and Services Coordination
--- OUTSIDE RECORDS SUMMARY | 2024-09-21 22:48 | XMS_ITS | Encounter Summary ---
Author Organization [place] Address [address] [place] [address] Care Team Providers Care Ocean Freight Forwarder Name Role Phone Taylor Cardozo [facility] Primary Care Provider None [facility] Care [facility] Jennifer Montejo MD Primary Care Provider [phone] Nimo Wetzel MD Primary Care Provider + Kin Waite MD Primary Care Provider [phone] [facility] Primary Care Prov ider Uyen Palm MD Primary Care Provider [phone] Milady Oakes MD Primary Care Provider [facility] Primary Care Provider [facility] Primary Care Pro vider No Ref-Primary, Physician Primary Care Provider [facility] Care Provide r Villa Santamaria PA-C Unavailable + Villa Santamaria PA-C Unavailable + Segundo Mcclelland MD Unavailable + Segundo Mcclelland MD Unavailable + No Ref-Primary, Physician Primary Care Provider [facility] Primary Care Provide r Villa SantamariaC Unavailable [phone] Segundo Mcclelland MD Unavailable + Segundo Mcclelland MD Primary Care Provider + Sienna Guillermo DO Unavailable + Sandy Cox APRN GLASS INSPECTOR Unavailable + Segundo Mcclelland MD Unavailable + Sienna Guillermo DO Unavailable [phone] Malia Dhillon MD Primary Care Provider [phone] No Ref-Primary, Physician Primary Care Provider Mai UrenaC Unavailable [phone] Segundo Mcclelland MD Unavailable + Segundo Mcclelland MD Unavailable + Qamar Jackson MD Unavailable Segundo Mcclelland MD Primary Care Provider + Amy Montes De Oca RN Unavailable [phone] Gregorio Dalton-C Unavailable + [phone] Kingsley Garcia MD Unavailable [phone] Segundo Mcclelland MD Unavailable + Master Shea PA-C Unavailable Allyssa Justice MD Unavailable [phone] Genaro Christian MD Unavailable [phone] Master Shea-C Unavailable Sienna Guillermo DO Unavailable [phone] Allyssa Justice MD Unavailable [phone] Declan Leavitt MD Unavailable Ugo Ochoa MD Unavailable Encounter Details Date Type Department Care Team (Late st Contact Info) Description 10/04/[address] [place] [address] Taylor Cardozo APRN [facility] [address] [place] [address] DISCHARGE [facility] Social History Tobacco [...] AM CDT Legal Sex Female 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 [address] [facility] [address] [place] [phone] Allyssa Justice MD [facility] [address] [place] [address] [place] [address] 02/27/2025 10:40 AM CDT Virtual Visit [facility] [address], [place] [address] [place] [phone] Allyssa Justice MD [facility] [address] [place] [address] documented as of this encounter Visit Diagnoses Not on filedocumented in this encounter Additional Health Concerns Infection Onset Date Last Indicated Resolved Time Rule Out COVID-19 02/29/2020 02/29/2020 03/01/2020 9:51 PM CDT Rule Out COVID-19 05/05/2020 05/05/2020 05/06/2020 2:19 AM CDT Rule Out COVID-19 08/20/2020 08/20/2020 08/21/2020 10:31 PM CDT Rule Out COVID-19 10/27/2020 10/27/2020 11/17/2020 11:39 PM TALENT SOURCING SPECIALIST Rule Out COVID-19 12/23/2020 12/24/2020 12/24/2020 2:08 AM TALENT SOURCING SPECIALIST Rule Out COVID-19 01/24/2021 01/24/2021 01/24/2021 9:18 PM TALENT SOURCING SPECIALIST Rule Out COVID-19 10/27/2022 10/27/2022 10/27/2022 3:19 AM TALENT SOURCING SPECIALIST Influenza 10/27/2022 10/27/2022 11/03/2022 11:4 0 PM TALENT SOURCING SPECIALIST Rule Out COVID-19 01/04/2023 01/04/2023 01/04/2023 8:32 PM TALENT SOURCING SPECIALIST Rule Out C-difficile 01/04/2023 01/04/2023 023 1:46 AM TALENT SOURCING SPECIALIST Rule Out C-difficile 01/07/2023 01/07/2023 023 8:18 PM TALENT SOURCING SPECIALIST Rule Out C-difficile 06/04/2023 06/04/2023 023 11:28 AM CDT Rule Out Eleonora auris 06/04/2023 06/04/202306/07 9:24 AM CDT ESBL 10/23/2023 05/26/2024 Rule Out COVID-19 11/10/2023 11/10/2023 11/10/2023 7:17 PM TALENT SOURCING SPECIALIST Rule Out COVID-19 01/18/2024 01/18/2024 01/18/2024 8:53 PM TALENT SOURCING SPECIALIST Rule Out COVID-19 01/28/2024 01/28/2024 01/28/2024 10:22 PM TALENT SOURCING SPECIALIST Rule Out COVID-19 02/17/2024 02/17/2024 02/17/2024 5:07 PM CDT Rule Out COVID-19 04/22/2024 04/22/2024 04/23/2024 12:06 AM CDT documented as of this encounter Care Teams Ocean Freight Forwarder Relationship Specialty Start Date End Date Taylor Cardozo APRN GLASS INSPECTOR [address] [place] [address] PCP - General 01/11/04 09/22/10 None PCP - General 09/23/10 09/02/11 Jennifer Escobedo MD [address] [place] [address] PCP - General timber killer 09/03/11 11/01/11 Nimo Wetzel MD [address] [place] [address] PCP - General 11/02/11 04/17/12 Kin Waite MD [address] [facility] [address] [place] [address] PCP - General timber killer 04/18/12 11/22/12 [facility], [address], [facility] [address] [place] [phone] PCP - General 11/23/12 11/25/13 Uyen Palm MD [address] [facility] [address] [place], [place] [id number] PCP - General timber killer 11/26/13 09/02/14 Milady Oakes MD [facility] [address] [place] [address] PCP - General Family Practice 09/03/14 09/20/15 [employer], [facility] [address] [place] [address] PCP - General 09/21/15 07/10/17 [facility] [address] [place] [address] PCP - General 07/11/17 01/19/18 No Ref-Primary, Physician PCP - General 01/20/18 04/30/18 [facility] [employer] [place] [place] [address] PCP - General 05/01/18 09/24/20 Villa Santamaria PA-C [address] [place] [address] PCP - Assigned PCP 05/01/18 01/31/19 No Ref-Primary, Physician PCP - General 09/25/20 09/26/20 [facility] [place] [address] PCP - General 09/27/20 08/16/21 [place] [address] [place] [address] PCP - General Family Medicine 08/17/21 10/26/22 [place] [address] [place] [address] PCP - General Family Medicine 10/27/22 10/27/22 No Ref-Primary, Physician PCP - General 11/06/22 04/21/23 [place] [address] [place] [address] PCP - General Family Medicine 04/22/23 Villa Santamaria PA-C [address] [place] [address] Assigned PCP 05/01/18 08/19/19 [place] [address] [place] [address] Assigned PCP 08/20/19 03/16/20 [place] [address] [place] [address] Assigned PCP 03/17/20 03/15/21 Villa Santamaria PA-C [address] [place] [address] Assigned PCP 03/16/21 05/03/21 [place] [address] [place] [address] Assigned PCP 05/04/21 01/17/22 Sienna Guillermo DO [address] [place] [address] Assigned Heart and Vascular Provider 09/21/21 10/04/21 Sandy Cox APRN CNP [address] [place] [address] Assigned Heart and Vascular Provider 10/05/21 09/04/22 [place] [address] [place] [address] Assigned PCP 01/18/22 10/30/22 Sienna Guillermo DO [address] [place] [address] Assigned Heart and Vascular Provider 09/05/22 03/12/23 Mai Urena PA-C [address] [place] [address] Assigned PCP 10/31/22 01/22/23 [place] [address] [place] [address] Assigned Pain Medication Provider 12/07/22 [place] [address] [place] [address] Assigned PCP 01/23/23 [place] [address] [place] [address] Assigned Musculoskeletal Provider 01/23/23 09/19/24 Amy Montes De Oca RN Clinic Product Development Actuary 05/13/2305/17 Gregorio Dalton PA-C [address] [place] [address] Assigned Surgical Provider 05/22/23 07/20/24 Kingsley Garcia MD [address] [place] [address] Assigned Heart and Vascular Provider 08/07/23 [place] [address] [place] [address] Family Medicine 09/10/23 Master Shea PA-C [address] [place] [address] Physician Finished Goods Stock Clerk Gastroenterology 09/10/23 Allyssa Justice MD [facility] [address] [place] [address] Hematology & Oncology 12/10/23 Genaro Christian MD [address] [place] [address] Cardiovascular Disease 12/22/23 Master Shea PA-C [address] [place] [address] Assigned Gastroenterology Provider 12/23/23 Sienna Guillermo DO [address] [place] [address] Physician Cardiovascular Disease 01/18/24 Allyssa Justice MD [facility] [address] [place] [address] Assigned Cancer Care Provider 03/21/24 Declan Leavitt MD [address] [place] [address] Assigned Surgical Provider 07/21/24 Ugo Ochoa MD [address] [place], [place] [address] Assigned Neuroscience Provider 09/20/24 documented as of this encounter
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
--- OUTSIDE RECORDS SUMMARY | 2024-09-21 22:48 | XMS_ITS | Encounter Summary ---
Author Organization [facility] Address [address] [address] Care Team Providers Care Learning Disabilities Specialist Name Role Phone Segundo Mcclelland MD Primary Care Provider [phone] Encounter Details Date Type Department Care Team (Late st Contact Info) Description 12/01/2012 Outside Hospital External to [facility] D/C SUMMARY Social History Tobacco Use Types [...] JUAN PROVIDER - 12/01/2012 12:00 AM CST ER MAKER documented in this encounter Plan of Treatment Not on file documented as of this encounter Visit Diagnoses Not on filedocumented in this encounter Care Teams Learning Disabilities Specialist Relationship Specialty Start [place] [address] [place] [address] PCP - General Family Practice 06/14/24 documented as of this encounter
[2024-09-22 00:30] VITALS: BP 113/68; PULSE 102; RESP 16; O2SAT 99
[2024-09-22] MEDS: diphenhydrAMINE 50 MG/ML inj 25 MG IM (01:59)
[2024-09-22] MEDS: LORazepam 2 MG/ML inj 0.5 MG IM (02:00)
[2024-09-22] MEDS: 0.9 % SODIUM CHLORIDE 500 ML 500 ML 1000 ML IV ×2 (02:05→02:54)
[2024-09-22 02:06] VITALS: BP 150/99; PULSE 107; RESP 16; TEMP 36.6; O2SAT 90
== END 2024-09-22 03:58 | disposition home or self-care (01) ==
PROVIDERS: Emergency Provider Student in an Organized Health Care Education/Training Program; PCP Family Medicine
DX: E86.0 Dehydration (principal)
CPT/HCPCS: 80048; 80076; 83690; 84703; 85025; 96372; 96374; 99283; J1200; J2060; J7030